=== PATIENT | female | born 1940 | race Caucasian/White ===

== ENCOUNTER 2017-03-23 17:54 | Emergency (ER) | payer OTHER ==
--- NOTE | 2017-03-23 18:02 | PDOC ---
Rapid Medical Evaluation Time Seen by Provider: 03/23/17 17:55 Medical Evaluation: Allergies Allergy/AdvReac Type Severity Reaction Status Date / Time valsartan [From Diovan] Allergy Verified 02/21/16 11:51 03/23/17 18:01 I have performed a brief in-person evaluation of this patient. The patient presents with a chief complaint of: CP and back pain x 4-5 days, worse w/ movement. H/o DM, HTN Pertinent physical exam findings:BP 199/96, exam otherwise unremarkable I have ordered the following: ekg/cxr/labs The patient will proceed to the ED for further evaluation.
[2017-03-23 18:05] VITALS: BP 199/96; PULSE 77; TEMP 97.5; BMI 24.9
[2017-03-23 18:26] LABS: BASO % 0.7 % (0-2.0); EOS % 0.6 % (0-4.5); HEMATOCRIT 37.3 % (32.4-45.2); HEMOGLOBIN 12.2 GM/dL (10.7-15.3); LYMPH % 19.4 % (8-40); MCH 26.8 pg (25.7-33.7); MCHC 32.8 g/dl (32.0-36.0); MEAN CELL VOLUME 81.8 fl (80-96); MEAN PLT VOLUME 8.3 fl (7.5-11.1); MONO % 6.9 % (3.8-10.2); NEUT % 72.4 % (42.8-82.8); PLATELET COUNT 467 K/MM3 (134-434); RBC 4.56 M/mm3 (3.60-5.2); RDW 14.1 % (11.6-15.6)
[2017-03-23 19:18] LABS: ALBUMIN 3.5 g/dl (3.4-5.0); ANION GAP 7 (8-16); BILIRUBIN,TOTAL 0.8 mg/dL (0.2-1.0); BLOOD UREA NITROGEN 12 mg/dL (7-18); CALCIUM 9.4 mg/dL (8.5-10.1); CHLORIDE 97 mmol/L (98-107); CO2 30 mmol/L (21-32); CREATININE 1.2 mg/dL (0.55-1.02); POTASSIUM 4.2 mmol/L (3.5-5.1); SGOT/AST 13 U/L (15-37); SGPT/ALT 17 U/L (12-78); SODIUM 134 mmol/L (136-145); TOT PROT 7.3 g/dl (6.4-8.2)
[2017-03-23 19:20] LABS: ALK PHOS 124 U/L (45-117)
[2017-03-23 19:24] LABS: GLUCOSE,RANDOM 349 mg/dL (74-106)
--- NOTE | 2017-03-23 20:10 | PDOC ---
History of Present Illness - General History Source: Patient Exam Limitations: No Limitations - History of Present Illness Initial Comments: 03/23/17 20:17 This is a 77-year-old female with a history of hypertension, hyperlipidemia, and insulin-dependent diabetes who presents to the emergency department for midsternal chest pain radiating to the back between her scapulae for 4-5 days with associated mild shortness of breath. The patient states her chest pain and dyspnea is exacerbated with heavy lifting and some movements, howoever, can be alleviated with rest. The patient denies any chest pain at thsi time. She presents from the office of Dr. Espana for evaluation. Allergies: Valsartan PCP - Dr. Espana <Theodora Valentin - Last Filed: 03/23/17 22:55> - General History Source: Patient <RajiJuan Luis velasquez - Last Filed: 03/24/17 20:02> - General Chief Complaint: Shortness of Breath Stated Complaint: PCP SENT/CHEST PAIN Time Seen by Provider: 03/23/17 17:55 Past History <Theodora Valentin - Last Filed: 03/23/17 22:55> - Past Medical History Anemia: No Asthma: No Cancer: No Cardiac Disorders: No CVA: No COPD: No CHF: No DVT: No Dementia: No Diabetes: Yes (IDDM) GI Disorders: Yes (DIVERTICULOSIS,COLONIC POLYPS,HEMORRHOIDS,) Disorders: Yes (UTERINE POLYPS,URINARY INCONTINENCE) HTN: Yes Hypercholesterolemia: No Liver Disease: No Seizures: No Thyroid Disease: No - Surgical History Abdominal Surgery: No Appendectomy: Yes Cardiac Surgery: No Cholecystectomy: Yes Lung Surgery: No Neurologic Surgery: No Orthopedic Surgery: No - Suicide/Smoking/Psychosocial Hx Smoking Status: No Smoking History: Never smoked Number of Cigarettes Smoked Daily: 0 Information on smoking cessation initiated: No Hx Alcohol Use: No Drug/Substance Use Hx: No Substance Use Type: None Hx Substance Use Treatment: No <Juan Luis Busch - Last Filed: 03/24/17 20:02> - Past Medical History Allergies/Adverse Reactions: Allergies Allergy/AdvReac Type Severity Reaction Status Date / Time valsartan [From Diovan] Allergy Verified 03/23/17 18:02 Home Medications: Ambulatory Orders Nebivolol [Bystolic -] 5 mg PO HS 08/24/11 Insulin Glargine,Hum.rec.anlog [Lantus] 24 units SQ HS #15 08/27/15 Solifenacin Succinate [Vesicare] 1 tab PO DAILY #30 08/27/15 Aspirin [ASA -] 81 mg PO DAILY 09/09/15 Atorvastatin Ca [Lipitor] 40 mg PO HS 02/21/16 Cephalexin [Keflex] 500 mg PO Q6H #20 capsule 02/21/16 Cholecalciferol (Vitamin D3) [Vitamin D3] 1,000 unit PO DAILY 02/21/16 Furosemide [Lasix -] 20 mg PO DAILY #30 tablet 02/21/16 Ginkgo Biloba 0 mg PO DAILY 02/21/16 Hydralazine HCl [Apresoline -] 25 mg PO BID 02/21/16 Loratadine [Claritin -] 10 mg PO DAILY 02/21/16 Multivitamins [Tab-A-Vit -] 1 tab PO DAILY 02/21/16 Review of Systems - Review of Systems Able to Perform ROS?: Yes Comments:: 03/23/17 20:19 CONSTITUTIONAL: Absent: fever, chills, diaphoresis, generalized weakness, malaise, loss of appetite HEENT: Absent: rhinorrhea, nasal congestion, throat pain, throat swelling, difficulty swallowing, mouth swelling, ear pain, eye pain, visual Changes CARDIOVASCULAR: (+) midsternal chest pain, Absent: syncope, palpitations, irregular heart rate, lightheadedness, peripheral edema RESPIRATORY: (+) mild shortness of breath and dyspnea with exertion, Absent: cough, orthopnea, wheezing, stridor, hemoptysis GASTROINTESTINAL: Absent: abdominal pain, abdominal distension, nausea, vomiting, diarrhea, constipation, melena, hematochezia GENITOURINARY: Absent: dysuria, frequency, urgency, hesitancy, hematuria, flank pain, genital pain MUSCULOSKELETAL: Absent: myalgia, arthralgia, joint swelling SKIN: Absent: rash, itching, pallor HEMATOLOGIC/IMMUNOLOGIC: Absent: easy bleeding, easy bruising, lymphadenopathy, frequent infections ENDOCRINE: Absent: unexplained weight gain, unexplained weight loss, heat intolerance, cold intolerance NEUROLOGIC: Absent: headache, focal weakness or paresthesias, dizziness, unsteady gait, seizure, mental status changes, bladder or bowel incontinence PSYCHIATRIC: Absent: anxiety, depression, suicidal or homicidal ideation, hallucinations. <ShantiRashmi toddanda - Last Filed: 03/23/17 22:55> *Physical Exam - Vital Signs Last Vital Signs Temp Pulse Resp BP Pulse Ox 97.5 F L 77 18 199/96 100 03/23/17 18:02 03/23/17 18:02 03/23/17 18:02 03/23/17 18:02 03/23/17 18:02 - Physical Exam Comments: 03/23/17 20:19 GENERAL: Well developed, well nourished. Awake and alert. No acute distress. HEENT: Normocephalic, atraumatic. PERRLA, EOMI. No conjunctival pallor. Sclera are non- icteric. Moist mucous membranes. Oropharynx is clear. NECK: Supple. Full ROM. No JVD. Carotid pulses 2+ and symmetric, without bruits. No thyromegaly. No lymphadenopathy. CARDIOVASCULAR: Regular rate and rhythm. No murmurs, rubs, or gallops. Distal pulses are 2+ and symmetric. PULMONARY: No evidence of respiratory distress. Lungs clear to auscultation bilaterally. No wheezing, rales or rhonchi. ABDOMINAL: Soft. Non-tender. Non-distended. No rebound or guarding. No organomegaly. Normoactive bowel sounds. MUSCULOSKELETAL Normal range of motion at all joints. No bony deformities or tenderness. No CVA tenderness. EXTREMITIES: No cyanosis. No clubbing. No edema. No calf tenderness. SKIN: Warm and dry. Normal capillary refill. No rashes. No jaundice. NEUROLOGICAL: Alert, awake, appropriate. Cranial nerves 2-12 intact. Normoreflexic in the upper and lower extremities. Normal speech. Toes are down-going bilaterally. Gait is normal without ataxia. PSYCHIATRIC: Cooperative. Good eye contact. Appropriate mood and affect. <ShantiTheodora todd - Last Filed: 03/23/17 22:55> - Vital Signs Last Vital Signs Temp Pulse Resp BP Pulse Ox 97.5 F L 77 18 199/96 100 03/23/17 18:02 03/23/17 18:02 03/23/17 18:02 03/23/17 18:02 03/23/17 18:02 <Juan Luis Busch - Last Filed: 03/24/17 20:02> Heart Score/ECG Review - ECG Intrepretation Comment:: 03/23/17 20:30 EKG was read by Dr. Busch at 20:17 Impression: Sinus rhythm with premature atrial complexes. Left axis deviation. Left ventricular hypertrophy with repolarization abnormality. Vent Rate: 68 bpm WI Interval: 172 ms QTc: 427 ms EKG unchanged when compared to an EKG performed earlier today, 03/23/17 at 3: 11PM. 03/23/17 22:55 2nd EKG was performed and read by Dr. Busch at 22:50 Impression: Normal sinus rhythms with sinus arrhythmia. Incomplete right BBB. Left anterior fascicular block. Vent Rate: 75 bpm WI Interval: 182 ms QTc: 437 ms <Theodora Valentin - Last Filed: 03/23/17 22:55> ED Treatment Course - LABORATORY CBC & Chemistry Diagram: 03/23/17 18:20 03/23/17 18:20 - ADDITIONAL ORDERS Additional order review: Laboratory Results 03/23/17 18:20 Sodium 134 L Potassium 4.2 Chloride 97 L Carbon Dioxide 30 Anion Gap 7 L BUN 12 Creatinine 1.2 H D Creat Clearance w eGFR 43.80 Random Glucose 349 H* D Calcium 9.4 Total Bilirubin 0.8 AST 13 L D ALT 17 D Alkaline Phosphatase 124 H Creatine Kinase 70 Troponin I < 0.02 Total Protein 7.3 Albumin 3.5 03/23/17 18:20 RBC 4.56 MCV 81.8 MCHC 32.8 RDW 14.1 MPV 8.3 Neutrophils % 72.4 Lymphocytes % 19.4 Monocytes % 6.9 Eosinophils % 0.6 Basophils % 0.7 <Theodora Valentin - Last Filed: 03/23/17 22:55> - LABORATORY CBC & Chemistry Diagram: 03/23/17 18:20 03/23/17 18:20 - ADDITIONAL ORDERS Additional order review: Laboratory Results 03/23/17 18:20 Sodium 134 L Potassium 4.2 Chloride 97 L Carbon Dioxide 30 Anion Gap 7 L BUN 12 Creatinine 1.2 H D Creat Clearance w eGFR 43.80 Random Glucose 349 H* D Calcium 9.4 Total Bilirubin 0.8 AST 13 L D ALT 17 D Alkaline Phosphatase 124 H Creatine Kinase 70 Troponin I < 0.02 Total Protein 7.3 Albumin 3.5 03/23/17 18:20 RBC 4.56 MCV 81.8 MCHC 32.8 RDW 14.1 MPV 8.3 Neutrophils % 72.4 Lymphocytes % 19.4 Monocytes % 6.9 Eosinophils % 0.6 Basophils % 0.7 <Juan Luis Busch - Last Filed: 03/24/17 20:02> Medical Decision Making - Medical Decision Making 03/23/17 22:10 Pt htn, IDDM presents with chest pain with radiation to her back. Pt pending second CE to determine disposition. Pt currently CP free. 03/24/17 20:02 Dr. Busch: The scribe's documentation has been prepared under my direction and personally reviewed by me in its entirery. I confirm that the note above accurately reflects all work, treatment, procedures, and medical decision making performed by me. <Juan Luis Busch - Last Filed: 03/24/17 20:02> *DC/Admit/Observation/Transfer - Attestations Scribe Attestion: 03/23/17 20:20 Documentation prepared by Theodora Valentin, acting as medical psychotherapist for Juan Luis Busch DO <Theodora Valentin - Last Filed: 03/23/17 22:55> - Discharge Dispostion Admit: No <Juan Luis Busch - Last Filed: 03/24/17 20:02> Diagnosis at time of Disposition: Chest pain Qualifiers: Chest pain type: unspecified Qualified Code(s): R07.9 - Chest pain, unspecified - Discharge Dispostion Disposition: HOME Condition at time of disposition: Stable - Referrals Referrals: Ro Espana MD [Primary Care Provider] - - Patient Instructions Printed Discharge Instructions: DI for Chest Pain Additional Instructions: Please follow up with Dr. Espana as soon as possible. REturn if any problems, Print Language: AMHARIC - Post Discharge Activity
[2017-03-23 20:45] LABS: URINE APPEARANCE CLEAR; URINE BILIRUBIN NEGATIVE (NEGATIVE); URINE BLOOD NEGATIVE (NEGATIVE); URINE COLOR YELLOW; URINE GLUCOSE (UA) 3+ (NEGATIVE); URINE KETONE NEGATIVE (NEGATIVE); URINE LEUK ESTERASE NEGATIVE (NEGATIVE); URINE NITRITE NEGATIVE (NEGATIVE); URINE UROBILINOGEN NEGATIVE mg/dL (0.2-1.0)
[2017-03-23 20:46] LABS: URINE PROTEIN 2+ (NEGATIVE)
[2017-03-23 20:53] LABS: EPI CELLS RARE /HPF (FEW); URINE HYALINE CAST 50 /lpf; URINE MUCUS RARE
--- NOTE | 2017-03-24 09:07 | EKG ---
Test Reason : Blood Pressure : / mmHG Vent. Rate : 065 BPM Atrial Rate : 065 BPM P-R Int : 180 ms QRS Dur : 114 ms QT Int : 392 ms P-R-T Axes : 067 -51 030 degrees QTc Int : 407 ms NORMAL SINUS RHYTHM WITH SINUS ARRHYTHMIA INCOMPLETE RIGHT BUNDLE BRANCH BLOCK Blocked PAC's LEFT ANTERIOR FASCICULAR BLOCK MINIMAL VOLTAGE CRITERIA FOR LVH, MAY BE NORMAL VARIANT SEPTAL INFARCT , AGE UNDETERMINED ABNORMAL ECG WHEN COMPARED WITH ECG OF 23-MAR-2017 20:17, PREMATURE ATRIAL COMPLEXES ARE NO LONGER PRESENT SEPTAL INFARCT IS NOW PRESENT NONSPECIFIC T WAVE ABNORMALITY NOW EVIDENT IN ANTERIOR LEADS Confirmed by MD Marlon, Kolton ([id number]) on 03/24/2017 9:07:48 AM Referred By: Confirmed By:Kolton Mason MD
--- NOTE | 2017-03-24 09:17 | EKG ---
Test Reason : Blood Pressure : / mmHG Vent. Rate : 079 BPM Atrial Rate : 079 BPM P-R Int : 166 ms QRS Dur : 118 ms QT Int : 366 ms P-R-T Axes : 024 -44 058 degrees QTc Int : 419 ms SINUS RHYTHM WITH PREMATURE ATRIAL COMPLEXES LEFT AXIS DEVIATION LEFT VENTRICULAR HYPERTROPHY WITH QRS WIDENING AND REPOLARIZATION ABNORMALITY ABNORMAL ECG WHEN COMPARED WITH ECG OF 21-FEB-2016 13:09, PREMATURE ATRIAL COMPLEXES ARE NOW PRESENT Confirmed by MD Marlon, Kolton ([id number]) on 03/24/2017 9:17:22 AM Referred By: Confirmed By:Kolton Mason MD
--- NOTE | 2017-03-30 15:18 | EKG ---
Test Reason : Blood Pressure : / mmHG Vent. Rate : 068 BPM Atrial Rate : 068 BPM P-R Int : 172 ms QRS Dur : 102 ms QT Int : 402 ms P-R-T Axes : 028 -44 035 degrees QTc Int : 427 ms POOR DATA QUALITY, INTERPRETATION MAY BE ADVERSELY AFFECTED SINUS RHYTHM WITH PREMATURE ATRIAL COMPLEXES LEFT AXIS DEVIATION LEFT VENTRICULAR HYPERTROPHY WITH REPOLARIZATION ABNORMALITY ABNORMAL ECG WHEN COMPARED WITH ECG OF 23-MAR-2017 17:59, NO SIGNIFICANT CHANGE WAS FOUND Confirmed by Mario Pena MD ([id number]) on 03/30/2017 3:18:01 PM Referred By: Confirmed By:Mario Pena MD
== END 2017-03-23 23:21 | disposition home or self-care (01) ==
LOC: JER 17:54
DX: R07.89 Other chest pain (principal); I10 Essential (primary) hypertension; M10.9 Gout, unspecified; Z79.4 Long term (current) use of insulin; E78.5 Hyperlipidemia, unspecified
CPT/HCPCS: 36415; 71045-TC; 80053; 81003; 81015; 82550; 84484; 85025; 93005; 93010; 99283-25

== ENCOUNTER 2017-05-22 15:54 | Emergency (ER) | payer OTHER ==
--- NOTE | 2017-05-22 16:19 | PDOC ---
History of Present Illness - General History Source: Patient, Family (daughter ) Exam Limitations: No Limitations - History of Present Illness Initial Comments: 05/22/17 17:30 The patient is a 77 year old female, accompanied by daughter, with a significant past medical history of HTN, HLD, IDDM, anxiety, and chronic arthritis who presents to the ED with worsening weakness and dizziness for several months. Daughter notes the patient has intermittent episodes of confusion. Daughter states she took the patient out to [facility] earlier today when she had a sudden onset of sharp generalized abdominal pain and became confused. Daughter states the patient did not know where she was and was hunched over in pain. Patient also reports 2 episodes of diarrhea prior to arrival to the ED. Daughter states the patient had another episodes of confusion 3 weeks ago, where she asked why cant I turn on my TV with my cell phone. Daughter also states the patient has had a sudden weight loss of over 40 pounds over the past 8 months. Patient usually drinks a lot of fluids at baseline but daughter states she has not been drinking as much and does not eat food unless she is forced to. Patient states she has had generalized abdominal pain, nausea and lightheadedness everyday for the past couple of months. She states she gets generalized weakness and lightheadedness when she moves her head too fast. Patient also reports urinary frequency and dry mouth associated with present symptoms. As per daughter, the patients symptoms started after she was recently prescribed Metformin 8 months ago. Patient also notes she recently had an MRI performed on 04/14/17 that states there is a tear of the distal suprapihatus tendon an retraction of musclotenirtous junction. Denies chest pain or shortness of breath. Denies fever or chills. Denies any other symptoms. Social hx: Patient lives alone at home. PCP: Malorie <Veda Bhagat - Last Filed: 05/22/17 21:08> - General History Source: Patient Exam Limitations: No Limitations <Paulina Hercules - Last Filed: 05/22/17 21:33> - General Stated Complaint: LIGHTHEADED, DEHYDRATED Time Seen by Provider: 05/22/17 16:19 Past History <Veda Bhagat - Last Filed: 05/22/17 21:08> - Past Medical History Anemia: No Asthma: No Cancer: No Cardiac Disorders: No CVA: No COPD: No CHF: No DVT: No Dementia: No Diabetes: Yes (IDDM) GI Disorders: Yes (DIVERTICULOSIS,COLONIC POLYPS,HEMORRHOIDS,) Disorders: Yes (UTERINE POLYPS,URINARY INCONTINENCE) HTN: Yes Hypercholesterolemia: No Liver Disease: No Seizures: No Thyroid Disease: No - Surgical History Abdominal Surgery: No Appendectomy: Yes Cardiac Surgery: No Cholecystectomy: Yes Lung Surgery: No Neurologic Surgery: No Orthopedic Surgery: No - Suicide/Smoking/Psychosocial Hx Smoking Status: No Smoking History: Never smoked Number of Cigarettes Smoked Daily: 0 Hx Alcohol Use: No Drug/Substance Use Hx: No Substance Use Type: None Hx Substance Use Treatment: No <Paulina Hercules - Last Filed: 05/22/17 21:33> - Past Medical History Allergies/Adverse Reactions: Allergies Allergy/AdvReac Type Severity Reaction Status Date / Time valsartan [From Diovan] Allergy Verified 05/22/17 16:16 Home Medications: Ambulatory Orders Nebivolol [Bystolic -] 5 mg PO HS 08/24/11 Insulin Glargine,Hum.rec.anlog [Lantus] 24 units SQ HS #15 08/27/15 Solifenacin Succinate [Vesicare] 1 tab PO DAILY #30 08/27/15 Aspirin [ASA -] 81 mg PO DAILY 09/09/15 Atorvastatin Ca [Lipitor] 40 mg PO HS 02/21/16 Cholecalciferol (Vitamin D3) [Vitamin D3] 1,000 unit PO DAILY 02/21/16 Furosemide [Lasix -] 20 mg PO DAILY #30 tablet 02/21/16 Ginkgo Biloba 0 mg PO DAILY 02/21/16 Loratadine [Claritin -] 10 mg PO DAILY 02/21/16 Multivitamins [Tab-A-Vit -] 1 tab PO DAILY 02/21/16 hydrALAZINE HCL [Apresoline -] 25 mg PO BID 02/21/16 Amoxicillin/Potassium Clav [Augmentin 875-125 Tablet] 1 each PO BID #14 tablet 05/22/17 metroNIDAZOLE [Flagyl -] 500 mg PO TID #21 tablet 05/22/17 Review of Systems - Review of Systems Able to Perform ROS?: Yes Comments:: 05/22/17 17:30 CONSTITUTIONAL: + generalized weakness, loss of appetite Absent: fever, chills, diaphoresis, malaise HEENT: + dry mouth Absent: rhinorrhea, nasal congestion, throat pain, throat swelling, difficulty swallowing, mouth swelling, ear pain, eye pain, visual Changes CARDIOVASCULAR: Absent: chest pain, syncope, palpitations, irregular heart rate, lightheadedness , peripheral edema RESPIRATORY: Absent: cough, shortness of breath, dyspnea with exertion, orthopnea, wheezing, stridor, hemoptysis GASTROINTESTINAL: + abdominal pain, nausea, diarrhea Absent: abdominal distension, vomiting, constipation, melena, hematochezia GENITOURINARY: + frequence Absent: dysuria, urgency, hesitancy, hematuria, flank pain, genital pain MUSCULOSKELETAL: Absent: myalgia, arthralgia, joint swelling SKIN: Absent: rash, itching, pallor HEMATOLOGIC/IMMUNOLOGIC: Absent: easy bleeding, easy bruising, lymphadenopathy, frequent infections ENDOCRINE: + unexplained weight loss Absent: unexplained weight gain, heat intolerance, cold intolerance NEUROLOGIC: + lightheadedness, dizziness, mental status changes (confusion) Absent: headache, focal weakness or paresthesias, unsteady gait, seizure, bladder or bowel incontinence PSYCHIATRIC: Absent: anxiety, depression, suicidal or homicidal ideation, hallucinations. All Other Systems: Reviewed and Negative <Veda Bhagat - Last Filed: 05/22/17 21:08> *Physical Exam - Vital Signs Last Vital Signs Temp Pulse Resp BP Pulse Ox 97.7 F 87 19 156/67 97 05/22/17 16:16 05/22/17 16:16 05/22/17 16:16 05/22/17 16:16 05/22/17 16:16 - Physical Exam Comments: 05/22/17 17:31 GENERAL: Well developed, well nourished. Awake and alert. No acute distress. HEENT:+ dry mucous membranes. Normocephalic, atraumatic. PERRLA, EOMI. No conjunctival pallor. Sclera are non- icteric. Oropharynx is clear. NECK: Supple. Full ROM. No JVD. Carotid pulses 2+ and symmetric, without bruits. No thyromegaly. NCo lymphadenopathy. CARDIOVASCULAR: Regular rate and rhythm. No murmurs, rubs, or gallops. Distal pulses are 2+ and symmetric. PULMONARY: No evidence of respiratory distress. Lungs clear to auscultation bilaterally. No wheezing, rales or rhonchi. ABDOMINAL: Soft. Non-tender. Non-distended. No rebound or guarding. No organomegaly. Normoactive bowel sounds. MUSCULOSKELETAL Normal range of motion at all joints. No bony deformities or tenderness. No CVA tenderness. EXTREMITIES: No cyanosis. No clubbing. No edema. No calf tenderness. SKIN: Warm and dry. Normal capillary refill. No rashes. No jaundice. NEUROLOGICAL: Alert, awake, appropriate. Cranial nerves 2-12 intact. No deficits to light touch and temperature in face, upper extremities and lower extremities. No motor deficits in the in face, upper extremities and lower extremities. Normoreflexic in the upper and lower extremities. Normal speech. Toes are down- going bilaterally. Gait is normal without ataxia. PSYCHIATRIC: Cooperative. Good eye contact. Appropriate mood and affect. <Veda Bhagat - Last Filed: 05/22/17 21:08> ED Treatment Course - LABORATORY CBC & Chemistry Diagram: 05/22/17 17:20 05/22/17 17:20 - ADDITIONAL ORDERS Additional order review: 05/22/17 17:20 RBC 4.69 MCV 80.8 MCHC 34.1 RDW 14.9 MPV 9.1 Neutrophils % 80.5 Lymphocytes % 11.5 D Monocytes % 6.9 Eosinophils % 0.4 Basophils % 0.7 - RADIOLOGY Radiograph Interpretation: 05/22/17 20:24 EXAM: CT head without contrast FINDINGS: There is cerebral atrophy. Chronic microvascular ischemic changes are noted. Chronic lacunar infarctions. No acute intracranial hemorrhage or acute infarction. The visualized aspect of the paranasal sinuses and mastoid air cells are unremarkable. No acute fracture. Mild gas in the cavernous sinuses, without specific etiology, though can be seen with inadvertent air in an IV catheter. Reported by: Imaging manager simulation EXAM: CT abdomen and pelvis with contrast Findings: Mild atelectasis and scarring in lung bases. No pleural effusions. Small hiatal hernia. Small low-attenuation hepatic lesions, probably cysts or hemangiomas. Cholecystectomy. Pancreas, adrenal glands, and spleen are unremarkable. No renal or urinary calculi. No AAA. Moderate colonic diverticulosis without inflammatory changes to suggest diverticulitis. Appearance of mild mucosal thickening in the ascending colon extending to the proximal transverse colon may be due to underdistention. Cannot exclude mild colitis. Appendix not seen with certainty. No evidence for small bowel obstruction, free fluid, or free air. Abdominal wall wound healed by secondary intention Reported by: Imaging manager simulation <Veda Bhagat - Last Filed: 05/22/17 21:08> - LABORATORY CBC & Chemistry Diagram: 05/22/17 17:20 05/22/17 17:20 <Paulina Hercules - Last Filed: 05/22/17 21:33> Medical Decision Making - Medical Decision Making 05/22/17 17:49 Ms Cole is a 77 yo F with a history of IDDM, HTN, HLD, arthritis, anxiety She presents to the ER with her daughter due to unclear complaints of weakness, confusion Pt was also noted today to have abdominal pain and diarrhea Pt states she is lightheaded but it worsens when she turns her head No headache No focal weakness or numbness No fevers or chills No chest pain Pt examination significant for: Alert, answers questions appropriately Very dry mucous membranes RRR CTA No abd tenderness at this time DD is broad and includes: (lightheadedness) CVA/TIA, ACS, Arrhythmia, dehydration, Renal insufficiency, UA , Hyperglycemia (abd pain) colitis, diverticulitis, Will do: Labs EKG Head CT Abd CT IV fluids EKG: SR rate of 81 bpm, Left axis deviation, LVH, no ST elevations or depressions, t wave inversion I aVL 05/22/17 19:19 Laboratory Tests 03/23/17 05/22/17 05/22/17 18:20 17:20 17:20 WBC 9.6 Hgb 12.9 Hct 37.9 Plt Count 367 D Neutrophils % 80.5 Lymphocytes % 11.5 D Sodium 134 L Potassium 3.8 Chloride 97 L Carbon Dioxide 27 BUN 12 14 Creatinine 1.2 H D 1.2 H Random Glucose 349 H* D 560 H* Lactic Acid Total Bilirubin 0.8 1.2 H D Troponin I 0.02 B-Natriuretic Peptide 1156.26 H 05/22/17 17:20 WBC Hgb Hct Plt Count Neutrophils % Lymphocytes % Sodium Potassium Chloride Carbon Dioxide BUN Creatinine Random Glucose Lactic Acid 2.5 H* Total Bilirubin Troponin I B-Natriuretic Peptide CT pending 05/22/17 21:22 CT: No renal or urinary calculi. No AAA. Moderate colonic diverticulosis without inflammatory changes to suggest diverticulitis. Appearance of mild mucosal thickening in the ascending colon extending to the proximal transverse colon may be due to underdistention. Cannot exclude mild colitis. Appendix not seen with certainty. No evidence for small bowel obstruction, free fluid, or free air. Abdominal wall wound healed by secondary intention. Pt daughter does not want to keep her on observation The patient is doing much better Pt has been ambulatory in the ER with no assistance No more abdominal pain or diarrhea Will discharge to home Pt to follow up with PMD Pt to hold Metformin x 2 days Pt to stay hydrated Return to the ER for any other concerns or complaints Clinical impression: colitis, initial presentation Weakness, initial presentation <Paulina Hercules - Last Filed: 05/22/17 21:33> *DC/Admit/Observation/Transfer - Attestations Scribe Attestion: 05/22/17 17:31 Documentation prepared by Veda Bhagat, acting as medical device sales consultant for Paulina Hercules MD <Veda Bhagat - Last Filed: 05/22/17 21:08> - Discharge Dispostion Admit: No <Paulina Hercules - Last Filed: 05/22/17 21:33> Diagnosis at time of Disposition: Colitis, Weakness Diarrhea Qualifiers: Diarrhea type: unspecified type Qualified Code(s): R19.7 - Diarrhea, unspecified - Discharge Dispostion Disposition: HOME Condition at time of disposition: Stable - Referrals Referrals: Ro Espana MD [Primary Care Provider] - - Patient Instructions Printed Discharge Instructions: DI for Colitis, Diarrhea, DI for Muscle Weakness Additional Instructions: Thank you for coming in to the ER today Ms. Cole Please be sure to follow up with your primary care physician within 1 week Please take your medications as prescribed, EXCEPT your Metformin. You will stop taking your Metformin for 48 hours (following your CT scan) Please stay hydrated as much as possible Please take your other medication for diabetes Please monitor yourself for fevers, chills, increased pain, any other concerns or complaints
[2017-05-22 16:21] VITALS: BMI 23.8
[2017-05-22] MEDS ORDERED: SODIUM CHLORIDE 1,000 ML IV STA (16:46)
[2017-05-22 17:28] LABS: BASO % 0.7 % (0-2.0); EOS % 0.4 % (0-4.5); HEMATOCRIT 37.9 % (32.4-45.2); HEMOGLOBIN 12.9 GM/dL (10.7-15.3); LYMPH % 11.5 % (8-40); MCH 27.5 pg (25.7-33.7); MCHC 34.1 g/dl (32.0-36.0); MEAN CELL VOLUME 80.8 fl (80-96); MEAN PLT VOLUME 9.1 fl (7.5-11.1); MONO % 6.9 % (3.8-10.2); NEUT % 80.5 % (42.8-82.8); PLATELET COUNT 367 K/MM3 (134-434); RBC 4.69 M/mm3 (3.60-5.2); RDW 14.9 % (11.6-15.6); WHITE BLOOD COUNT 9.6 K/mm3 (4.0-10.0)
[2017-05-22 17:54] LABS: ALBUMIN 3.4 g/dl (3.4-5.0); AMYLASE 14 U/L (25-115); ANION GAP 10 (8-16); BILIRUBIN,TOTAL 1.2 mg/dL (0.2-1.0); BLOOD UREA NITROGEN 14 mg/dL (7-18); CALCIUM 8.6 mg/dL (8.5-10.1); CHLORIDE 97 mmol/L (98-107); CO2 27 mmol/L (21-32); CREATININE 1.2 mg/dL (0.55-1.02); LIPASE 60 U/L (73-393); POTASSIUM 3.8 mmol/L (3.5-5.1); SGOT/AST 8 U/L (15-37); SGPT/ALT 18 U/L (12-78); SODIUM 134 mmol/L (136-145)
[2017-05-22 17:58] LABS: ALK PHOS 87 U/L (45-117); N-TERMINAL BNP 1156.26 pg/ml (5-450); TOT PROT 6.5 g/dl (6.4-8.2)
[2017-05-22 17:59] LABS: GLUCOSE,RANDOM 560 mg/dL (74-106)
[2017-05-22] MEDS ORDERED: INSULIN REGULAR HUMAN 100 UNITS/ML *VIAL IVPUSH ONE (17:59)
[2017-05-22] MEDS ORDERED: INSULIN REGULAR HUMAN 100 UNITS/ML *VIAL ONE (18:31)
[2017-05-22] MEDS ORDERED: HEMOQUE TEST 1 EACH EACH ONE (20:06)
[2017-05-22] MEDS ORDERED: metroNIDAZOLE 250 MG TABLET PO ONE (21:31)
[2017-05-22] MEDS ORDERED: AMOX TR/POT CLAV 875MG/125MG TABLETS (FP) PO ONE (21:31)
[2017-05-22 21:32] VITALS: BP 189/102; PULSE 75; TEMP 97.6
[2017-05-22] MEDS ORDERED: metroNIDAZOLE 250 MG TABLET ONE (21:34)
[2017-05-22] MEDS ORDERED: AMOX TR/POT CLAV 875MG/125MG TABLETS (FP) ONE (21:34)
--- NOTE | 2017-05-23 14:24 | EKG ---
Test Reason : Blood Pressure : / mmHG Vent. Rate : 081 BPM Atrial Rate : 081 BPM P-R Int : 150 ms QRS Dur : 116 ms QT Int : 374 ms P-R-T Axes : 035 -51 077 degrees QTc Int : 434 ms NORMAL SINUS RHYTHM LEFT ANTERIOR FASCICULAR BLOCK LEFT VENTRICULAR HYPERTROPHY WITH QRS WIDENING AND REPOLARIZATION ABNORMALITY ABNORMAL ECG Confirmed by MD SANTO GREGORY ([id number]) on 05/23/2017 2:24:24 PM Referred By: Confirmed By:DERRELL SANTO MD
== END 2017-05-22 21:43 | disposition home or self-care (01) ==
LOC: JER 15:54
PROC: 3E013VG Introduction of Insulin into Subcutaneous Tissue, Percutaneous Approach (ICD-10-PCS; principal; 2017-05-22)
PROC: 3E0337Z Introduction of Electrolytic and Water Balance Substance into Peripheral Vein, Percutaneous Approach (ICD-10-PCS; 2017-05-22)
DX: K52.9 Noninfective gastroenteritis and colitis, unspecified (principal); R19.7 Diarrhea, unspecified; L53.1 Erythema annulare centrifugum; E11.9 Type 2 diabetes mellitus without complications; I10 Essential (primary) hypertension; E78.5 Hyperlipidemia, unspecified; F41.9 Anxiety disorder, unspecified
CPT/HCPCS: 36415; 70450-TC; 71045-TC-FY; 74177-TC; 80053; 82150; 82550; 82962; 83605; 83690; 83880; 84484; 85025; 93005; 93010; 99283-25

== ENCOUNTER 2017-06-07 09:09 | Observation (INO) | payer OTHER ==
--- NOTE | 2017-06-07 09:58 | PDOC ---
History of Present Illness - General History Source: Patient - History of Present Illness Timing/Duration: other Associated Symptoms: denies: chest pain, fever/chills, headaches, nausea/ vomiting, shortness of breath, syncope <Thomas Paris - Last Filed: 06/07/17 12:09> <Dionicio Kim - Last Filed: 06/07/17 17:19> - General Chief Complaint: Pain Stated Complaint: flank PAIN, high bp, dizzy Time Seen by Provider: 06/07/17 09:33 Past History - Past Medical History Anemia: No Asthma: No Cancer: No Cardiac Disorders: No CVA: No COPD: No CHF: No DVT: No Dementia: No Diabetes: Yes (IDDM) GI Disorders: Yes (DIVERTICULOSIS,COLONIC POLYPS,HEMORRHOIDS,) Disorders: Yes (UTERINE POLYPS,URINARY INCONTINENCE) HTN: Yes Hypercholesterolemia: No Liver Disease: No Seizures: No Thyroid Disease: No - Surgical History Abdominal Surgery: No Appendectomy: Yes Cardiac Surgery: No Cholecystectomy: Yes Lung Surgery: No Neurologic Surgery: No Orthopedic Surgery: No - Suicide/Smoking/Psychosocial Hx Smoking Status: No Smoking History: Never smoked Number of Cigarettes Smoked Daily: 0 Information on smoking cessation initiated: No Hx Alcohol Use: No Drug/Substance Use Hx: No Substance Use Type: None Hx Substance Use Treatment: No <Thomas Paris - Last Filed: 06/07/17 12:09> <Dionicio Kim - Last Filed: 06/07/17 17:19> - Past Medical History Allergies/Adverse Reactions: Allergies Allergy/AdvReac Type Severity Reaction Status Date / Time valsartan [From Diovan] Allergy Verified 06/07/17 09:14 Home Medications: Ambulatory Orders Aspirin [ASA -] 81 mg PO DAILY 09/09/15 Dapagliflozin Propanediol [Farxiga] 5 mg PO DAILY 06/07/17 Olmesartan/Hydrochlorothiazide [Benicar Hct 40-12.5MG Tab] 1 tab PO DAILY Review of Systems - Review of Systems Constitutional: No: Chills, Fever HEENTM: No: Blurred Vision, Difficulty Swallowing Respiratory: No: Shortness of Breath Cardiac (ROS): No: Chest Pain ABD/GI: No: Blood Streaked Bowels, Constipated, Diarrhea, Nausea, Rectal Bleeding, Vomiting, Tarry Stools : Yes: Frequency, Incontinence. No: Dysuria, Hematuria Neurological: Yes: Dizziness. No: Headache, Numbness, Tingling, Weakness <Thomas Paris - Last Filed: 06/07/17 12:09> *Physical Exam - Vital Signs Last Vital Signs Temp Pulse Resp BP Pulse Ox 97.7 F 81 18 201/85 100 06/07/17 09:14 06/07/17 09:14 06/07/17 09:14 06/07/17 09:14 06/07/17 09:14 - Physical Exam General Appearance: Yes: Appropriately Dressed. No: Apparent Distress HEENT: positive: Normal Voice Neck: positive: Supple Respiratory/Chest: positive: Lungs Clear, Normal Breath Sounds. negative: Respiratory Distress Cardiovascular: positive: Regular Rate, S1, S2 Gastrointestinal/Abdominal: positive: Soft. negative: Tender Musculoskeletal: negative: CVA Tenderness Integumentary: positive: Dry, Warm Neurologic: positive: Fully Oriented, Alert, Normal Mood/Affect, Motor Strength 5/5 (no nystagmus, nl finger to nose) <Thomas Paris - Last Filed: 06/07/17 12:09> - Vital Signs Last Vital Signs Temp Pulse Resp BP Pulse Ox 97.7 F 80 16 163/81 100 06/07/17 17:00 06/07/17 17:00 06/07/17 17:00 06/07/17 17:00 06/07/17 17:00 <Dionicio Kim - Last Filed: 06/07/17 17:19> ED Treatment Course - LABORATORY CBC & Chemistry Diagram: 06/07/17 10:00 06/07/17 10:00 - RADIOLOGY Radiology Studies Ordered: Category Date Time Status CHEST X-RAY PORTABLE* [RAD] Stat Radiology 06/07/17 09:36 Taken <Thomas Paris - Last Filed: 06/07/17 12:09> - LABORATORY CBC & Chemistry Diagram: 06/07/17 10:00 06/07/17 10:00 - ADDITIONAL ORDERS Additional order review: Laboratory Results 06/07/17 06/07/17 06/07/17 11:27 10:00 09:38 Sodium 133 L Potassium 4.0 Chloride 97 L Carbon Dioxide 28 Anion Gap 8 BUN 16 Creatinine 1.2 H Creat Clearance w eGFR 43.80 POC Glucometer > 400 Random Glucose 452 H* Calcium 9.5 Total Bilirubin 0.7 D AST 14 L ALT 24 Alkaline Phosphatase 95 Creatine Kinase 75 Troponin I < 0.02 B-Natriuretic Peptide 685.18 H Cancelled Total Protein 7.6 Albumin 4.1 Lipase 65 L 06/07/17 06/07/17 11:27 10:00 RBC 4.85 MCV 81.4 MCHC 33.6 RDW 15.1 MPV 8.8 Neutrophils % 65.3 Lymphocytes % 23.9 D Monocytes % 9.0 Eosinophils % 0.7 Basophils % 1.1 POC Glucometer > 400 - Medications Given in the ED: ED Medications Discontinued Medications Generic Name Dose Route Start Last Admin Trade Name Sandovalq PRN Reason Stop Dose Admin Sodium Chloride 500 mls @ 500 mls/hr 06/07/17 10:17 06/07/17 10:21 Normal Saline - IV 06/07/17 11:16 500 mls/hr ASDIR STA Administration Insulin Human Regular 10 units 06/07/17 11:13 06/07/17 11:23 Novolin R Vial *For Ivpush Or Iv Drip Only* IVPUSH 06/07/17 11:14 10 unit ONCE ONE Administration Meclizine HCl 25 mg 06/07/17 10:17 06/07/17 10:21 Antivert - PO 06/07/17 10:18 25 mg ONCE ONE Administration <Dionicio Kim - Last Filed: 06/07/17 17:19> Medical Decision Making - Medical Decision Making 06/07/17 09:58 77-year-old female, history of hypertension, hyperlipidemia, insulin-dependent diabetic, chronic arthritis, incontinence, anxiety, here with multiple complaints including persistent dizziness x several months regardless of position but possibly worse on ambulation. States she has to hold onto carlos to walk secondary to dizziness and also finds it hard to sleep at times. No true vertigo, visual changes, headache, focal weakness, chest pain or shortness of breath. Was seen in ED for same 05/22/[address] Dr. Espana for f/u visit 05/30/2017 with unremarkable MRI. Patient states dizziness persists and decided to return to ED today. Patient also complaining of suprapubic pain that is also chronic in nature. Of note, urine culture done 05/22/2017 was read as possible contamination. CT a/p then read as ? mild colitis to ascending/proximal sigmoid, pt was dced on flagyl and augmentin which she completed. Continues to complain of her incontinence and unclear if patient on medication for same. Does not currently wear diapers. Denies true dysuria, hematuria, flank pain as noted at triage, nausea, vomiting, fever or chills. States her FS runs 100s-300s at home See exam Dizziness Chronic complaint No vertigo but possibly worse upon standing/walking No focal sxs No CP/SOB Labile BS at home Neg CTH 05/22 and neg MRI 05/30/17 Hypertensive at triage (compliant w/ benicar per pt), no focal deficits -ekg -labs -orthostatic BP -trial of meclizine -IVF -anticipate admission Incontinence Chronic ?on meds at home, no diaper use Contaminated ucx 05/22/17 Completed oct/flagyl for possible colitis on CT 05/22/17 -rpt ua/cx today -possible urology referral in near future, will d/w Dr Espana (pmd) 06/07/17 11:14 Sugar of 452 on labs, no gap. Cr of 1.2, based on chart review has been increasing since 04/08. K within normal limits. Not orthostatic. IV fluids and insulin in progress. Of note, patient recently changed from metformin to Farxiga as there was a ? of metformin causing dizziness per pt. Will admit at this time 06/07/17 12:09 Case discussed with hospitalist and patient admitted to observation <Thomas Paris - Last Filed: 06/07/17 12:09> - Medical Decision Making I reviewed the case of the mid-level practitioner and was available for consultation while in the emergency department <Dionicio Kim - Last Filed: 06/07/17 17:19> *DC/Admit/Observation/Transfer - Discharge Dispostion Admit: Yes <Thomas Paris - Last Filed: 06/07/17 12:09> <Dionicio Kim - Last Filed: 06/07/17 17:19> Diagnosis at time of Disposition: Dizziness, Hyperglycemia - Discharge Dispostion Condition at time of disposition: Fair
[2017-06-07 10:05] LABS: BASO % 1.1 % (0-2.0); EOS % 0.7 % (0-4.5); HEMATOCRIT 39.5 % (32.4-45.2); HEMOGLOBIN 13.3 GM/dL (10.7-15.3); LYMPH % 23.9 % (8-40); MCH 27.4 pg (25.7-33.7); MCHC 33.6 g/dl (32.0-36.0); MEAN CELL VOLUME 81.4 fl (80-96); MEAN PLT VOLUME 8.8 fl (7.5-11.1); NEUT % 65.3 % (42.8-82.8); PLATELET COUNT 382 K/MM3 (134-434); RBC 4.85 M/mm3 (3.60-5.2); RDW 15.1 % (11.6-15.6); WHITE BLOOD COUNT 7.9 K/mm3 (4.0-10.0)
--- NOTE | 2017-06-07 10:08 | EKG ---
Test Reason : Blood Pressure : / mmHG Vent. Rate : 079 BPM Atrial Rate : 079 BPM P-R Int : 162 ms QRS Dur : 114 ms QT Int : 378 ms P-R-T Axes : 009 -46 086 degrees QTc Int : 433 ms NORMAL SINUS RHYTHM WITH SINUS ARRHYTHMIA LEFT ANTERIOR FASCICULAR BLOCK LEFT VENTRICULAR HYPERTROPHY WITH REPOLARIZATION ABNORMALITY ABNORMAL ECG WHEN COMPARED WITH ECG OF 22-MAY-2017 16:28, NO SIGNIFICANT CHANGE WAS FOUND Confirmed by JACQUEILNE CUELLAR MD ([id number]) on 06/07/2017 10:07:52 AM Referred By: Confirmed By:JACQUELINE CUELLAR MD
[2017-06-07] MEDS ORDERED: MECLIZINE HCL 25 MG TABLET (FP) PO ONE (10:17)
[2017-06-07] MEDS ORDERED: SODIUM CHLORIDE 500 ML IV STA (10:17)
[2017-06-07] MEDS ORDERED: MECLIZINE HCL 25 MG TABLET (FP) ONE (10:22)
[2017-06-07 10:25] LABS: ALBUMIN 4.1 g/dl (3.4-5.0); ANION GAP 8 (8-16); BILIRUBIN,TOTAL 0.7 mg/dL (0.2-1.0); BLOOD UREA NITROGEN 16 mg/dL (7-18); CALCIUM 9.5 mg/dL (8.5-10.1); CHLORIDE 97 mmol/L (98-107); CO2 28 mmol/L (21-32); CREATININE 1.2 mg/dL (0.55-1.02); LIPASE 65 U/L (73-393); SGOT/AST 14 U/L (15-37); SGPT/ALT 24 U/L (12-78); SODIUM 133 mmol/L (136-145); TOT PROT 7.6 g/dl (6.4-8.2)
[2017-06-07 10:28] LABS: ALK PHOS 95 U/L (45-117); N-TERMINAL BNP 685.18 pg/ml (5-450)
[2017-06-07 10:59] LABS: GLUCOSE,RANDOM 452 mg/dL (74-106)
[2017-06-07] MEDS ORDERED: INSULIN REGULAR HUMAN 100 UNITS/ML *VIAL IVPUSH ONE (11:13)
[2017-06-07] MEDS ORDERED: INSULIN REGULAR HUMAN 100 UNITS/ML *VIAL ONE (11:30)
[2017-06-07 12:50] LABS: URINE APPEARANCE CLEAR; URINE BILIRUBIN NEGATIVE (NEGATIVE); URINE BLOOD NEGATIVE (NEGATIVE); URINE COLOR STRAW; URINE GLUCOSE (UA) 3+ (NEGATIVE); URINE KETONE NEGATIVE (NEGATIVE); URINE LEUK ESTERASE NEGATIVE (NEGATIVE); URINE NITRITE NEGATIVE (NEGATIVE); URINE PROTEIN NEGATIVE (NEGATIVE); URINE UROBILINOGEN NEGATIVE mg/dL (0.2-1.0)
[2017-06-07] MEDS ORDERED: ACETAMINOPHEN 325 MG TABLET (FP) PO PRN (12:59)
--- NOTE | 2017-06-07 13:41 | HP ---
Admitting History and Physical - Primary Care Physician PCP: Ro Espana - Admission Chief Complaint: dizziness, pain History of Present Illness: HPI This is a 77 year old female with HTN, HLD, IDDM, chronic arthritis, incontinence, anxiety who brought herself to the hospital with innumerable complaints, primary one being L shoulder pain disrupting sleep, lower abdominal pain and dizziness x2 months. She states she feels dizziness all over her body and when she moves her shoulder hurts. She was seen on 05/22/17 for same complaints, CT head negative. CTAP at that time also showed mild colitis and was discharged on augmentin and flagyl to which was completed. On 04/14/17 she had an MRI of her L shoulder and it showed a tear of the distal suprapihatus tendon an retraction of musclotenirtous junction The patient staters her blood pressure and sugar are not controlled even though she takes her medication. She denies fever, chills, sob, chest pain, n/v, she is very tried and wants to sleep but then wont be able to sleep at night. History Source: Patient, Medical Record Limitations to Obtaining History: No Limitations - Past Medical History Cardiovascular: Yes: HTN, Hyperlipdemia Endocrine: Yes: Diabetes Mellitus - Smoking History Smoking history: Never smoked Aproximately how many cigarettes per day: 0 - Alcohol/Substance Use Hx Alcohol Use: No Home Medications - Allergies Allergies/Adverse Reactions: Allergies Allergy/AdvReac Type Severity Reaction Status Date / Time valsartan [From Diovan] Allergy Verified 06/07/17 09:14 - Home Medications Home Medications: Ambulatory Orders Aspirin [ASA -] 81 mg PO DAILY 09/09/15 Dapagliflozin Propanediol [Farxiga] 5 mg PO DAILY 06/07/17 Olmesartan/Hydrochlorothiazide [Benicar Hct 40-12.5MG Tab] 1 tab PO DAILY Review of Systems - Review of Systems Constitutional: reports: Weakness Eyes: reports: No Symptoms HENT: reports: No Symptoms Neck: reports: No Symptoms, Swollen Glands Respiratory: reports: No Symptoms Gastrointestinal: reports: Abdominal Pain Genitourinary: reports: No Symptoms Musculoskeletal: reports: Extremity Pain Integumentary: reports: No Symptoms Neurological: reports: Dizziness, Weakness Endocrine: reports: No Symptoms Hematology/Lymphatic: reports: No Symptoms Psychiatric: reports: No Symptoms Physical Examination Vital Signs: Vital Signs Temperature 97.7 F 06/07/17 09:14 Pulse Rate 70 06/07/17 11:14 Respiratory Rate 18 06/07/17 09:14 Blood Pressure 201/82 06/07/17 11:14 O2 Sat by Pulse Oximetry (%) 100 06/07/17 09:14 Constitutional: Yes: No Distress Eyes: Yes: Conjunctiva Clear HENT: Yes: Atraumatic Neck: Yes: Supple Cardiovascular: Yes: Regular Rate and Rhythm, S1, S2 Respiratory: Yes: Regular, CTA Bilaterally Gastrointestinal: Yes: Normal Bowel Sounds, Soft, Other (lower abdominal skin graft healed, incisions healed) ...Rectal Exam: Yes: WNL Breast(s): Yes: WNL Musculoskeletal: Yes: WNL Extremities: Yes: WNL Edema: Yes Edema: LLE: Trace Peripheral Pulses WNL: Yes Integumentary: Yes: WNL Neurological: Yes: Alert, Oriented, Cran Nerves II-XII Intact Psychiatric: Yes: Alert, Oriented Labs: CBC, BMP 06/07/17 10:00 06/07/17 10:00 Imaging - Results Chest X-ray: Report Reviewed EKG: Report Reviewed Problem List - Problems (1) Dizziness Code(s): R42 - DIZZINESS AND GIDDINESS (2) Hyperglycemia Code(s): R73.9 - HYPERGLYCEMIA, UNSPECIFIED (3) Weakness Code(s): R53.1 - WEAKNESS Assessment/Plan Assessment: 77 year old female admitted with dizziness, weakness, L shoulder pain Plan: 1. L shoulder pain - MRI 04/14/17 L shoulder with tear of the distal suprapihatus tendon an retraction of musclotenirtous junction - Ortho consult - Tylenol prn pain 2. Dizziness - Possible due to HTN and hyperglycemia - Pt improved with antivert - If continues after sugar and bp controlled, can make standing 3. HTN - Elevated in ED, now controlled - Continue benicar for now and monitor bp 4. DM II, hyperglycemia - Improved with 10 units insulin in ED - Start ISS, BGM ACHS 5. DVT - Lovenox sq Visit type - Emergency Visit Emergency Visit: Yes ED Registration Date: 06/07/17 Care time: The patient presented to the Emergency Department on the above date and was hospitalized for further evaluation of their emergent condition. - New Patient This patient is new to me today: Yes Date on this admission: 06/07/17 - Critical Care Critical Care patient: No Hospitalist Screening - Colonoscopy Questionnaire Colonoscopy Questionnaire: Colonoscopy Questionnaire - Patient: 50 - 75 years old and never had a screening colonoscopy: Unknown History of colon or rectal polyps, or CA: Unknown History of IBD, Crohn's disease or UC: Unknown History of abdominal radiation therapy as a child: Unknown - Relative: 1 with colon or rectal CA, or polyps at age 60 or younger: Unknown Colon or rectal CA diagnosed at age 45 or younger: Unknown Multiple relatives with colon or rectal CA: Unknown - Outcome: Screening Result: Negative Screen
[2017-06-07] MEDS: INSULIN SLIDING SCALE (NOVOLOG) 1 VIAL SQ SCH ×2 (16:47→21:12)
[2017-06-07 17:01] VITALS: BMI 24.9
[2017-06-07] MEDS ORDERED: INSULIN (NOVOLOG) ASPART 100 UNITS/ML 10ML VIAL ONE (17:11)
--- NOTE | 2017-06-07 21:54 | CONS ---
DATE OF CONSULTATION: 06/07/2017 CHIEF COMPLAINT: Left shoulder pain. HISTORY OF PRESENT ILLNESS: This is a 77-year-old female who has had longstanding shoulder pain. Pain wakes her at night. She is also coming in for abdominal pain at the same time. She notes the pain is felt in the shoulder. It is worse at night and wakes her up from sleep. She has difficulty raising the shoulder. This has been going on for quite some time, although she is not entirely sure how long for. She did have an MRI demonstrating full-thickness rotator cuff tear with retraction. She denies doing any physical therapy for this. She denies having any other previous cortisone injections. PAST MEDICAL HISTORY: Significant for hypertension as well as diabetes. SOCIAL HISTORY: Denies alcohol, tobacco, or drugs. MEDICATIONS: Reviewed as in chart. MEDICATION ALLERGIES: VALSARTAN. REVIEW OF SYMPTOMS: Negative for any constitutional, HEENT, respiratory, genitourinary, or issues. PHYSICAL EXAMINATION: General: This is a well-appearing female in no acute distress. She is alert and oriented x3. Vital Signs: She is afebrile, and vital signs are stable albeit with elevated blood pressure. Left Upper Extremity: Demonstrates no skin lesions. There is no swelling. There is mild limitation to forward flexion as well as abduction, internal and external rotation. She has decreased strength throughout the rotator cuff. She has positive impingement signs. She has an intact neurovascular exam distally. ASSESSMENT: Left shoulder rotator cuff tear. PLAN: I reviewed today's findings with the patient. We discussed that rotator cuff tears can be quite painful. That being said, there is no need for immediate intervention. Her glucose is very poorly controlled, and steroid injection would only make this worse at this point. She is also not a surgical candidate at this time but could be if her other medical issues resolve. To help manage her pain in the meantime, she can consider use of anti-inflammatories. That being said, she does have some elevated creatinine and may be best served by using Tylenol as well as a course of physical therapy. She can follow up as an outpatient as needed. JOEL ROBLES M.D. [place]/[id number]
[2017-06-08] MEDS: INSULIN SLIDING SCALE (NOVOLOG) 1 VIAL SQ SCH ×4 (06:21→21:34)
[2017-06-08 07:52] LABS: BASO % 0.7 % (0-2.0); EOS % 2.3 % (0-4.5); HEMATOCRIT 35.9 % (32.4-45.2); HEMOGLOBIN 12.1 GM/dL (10.7-15.3); LYMPH % 29.4 % (8-40); MCH 27.6 pg (25.7-33.7); MCHC 33.7 g/dl (32.0-36.0); MEAN CELL VOLUME 81.9 fl (80-96); MEAN PLT VOLUME 9.5 fl (7.5-11.1); MONO % 7.6 % (3.8-10.2); PLATELET COUNT 348 K/MM3 (134-434); RBC 4.38 M/mm3 (3.60-5.2); RDW 15.5 % (11.6-15.6); WHITE BLOOD COUNT 7.5 K/mm3 (4.0-10.0)
[2017-06-08 08:19] LABS: ALBUMIN 3.2 g/dl (3.4-5.0); ANION GAP 6 (8-16); BLOOD UREA NITROGEN 17 mg/dL (7-18); CALCIUM 8.5 mg/dL (8.5-10.1); CHLORIDE 106 mmol/L (98-107); CO2 29 mmol/L (21-32); CREATININE 0.9 mg/dL (0.55-1.02); GLUCOSE,RANDOM 135 mg/dL (74-106); MAGNESIUM 2.3 mg/dL (1.8-2.4); PHOSPHOROUS 3.1 mg/dL (2.5-4.9); POTASSIUM 4.5 mmol/L (3.5-5.1); SGOT/AST 12 U/L (15-37); SGPT/ALT 15 U/L (12-78); SODIUM 141 mmol/L (136-145)
[2017-06-08 08:20] LABS: ALK PHOS 76 U/L (45-117); BILIRUBIN,TOTAL 0.7 mg/dL (0.2-1.0)
[2017-06-08] MEDS ORDERED: HYDROCHLOROTHIAZIDE 12.5 MG CAPSULE (FP) PO SCH (10:00)
[2017-06-08] MEDS ORDERED: PATIENT'S OWN MEDICATION (NON-FORMULARY) (Olmesartan/Hydrochlorothiazide [Benicar Hct 40-1 PO SCH (10:00)
[2017-06-08] MEDS ORDERED: VALSARTAN 160 MG TABLET (UD) PO SCH (10:00)
--- NOTE | 2017-06-08 10:12 | PN ---
Progress Note, Physician History of Present Illness: NAD seen by ortho-no immediate need for intervention for her rotator cuff -to be seen by Neurology and Endocrinology -Last CT head on 05/22/17 showed -Repeat CT head report pending -BGM better controlled -Dietary compliance outpatient an issue - Current Medication List Current Medications: Active Medications Acetaminophen (Tylenol -) 650 mg PO Q4H PRN PRN Reason: PAIN LEVEL 4 - 6 Aspirin (Asa -) 81 mg PO DAILY JOYCE Enoxaparin Sodium (Lovenox -) 40 mg SQ DAILY JOYCE Hydrochlorothiazide (Hctz -) 12.5 mg PO DAILY JOYCE Insulin Aspart (Novolog Vial Sliding Scale -) 0 vial SQ ACHS JOYCE PRN Reason: Protocol Last Admin: 06/08/17 06:21 Dose: Not Given Lisinopril (Prinivil) 40 mg PO DAILY [facility] - Objective Vital Signs: Vital Signs Temperature 98.5 F 06/08/17 09:00 Pulse Rate 89 06/08/17 09:00 Respiratory Rate 18 06/08/17 09:00 Blood Pressure 135/71 06/08/17 09:00 O2 Sat by Pulse Oximetry (%) 98 06/08/17 06:00 Constitutional: Yes: Well Nourished, No Distress, Calm Cardiovascular: Yes: Regular Rate and Rhythm Respiratory: Yes: Regular Gastrointestinal: Yes: Normal Bowel Sounds, Soft Musculoskeletal: Yes: Muscle Pain (BL shoulder) Extremities: Yes: WNL Edema: No Peripheral Pulses WNL: Yes Neurological: Yes: Alert, Oriented Psychiatric: Yes: Alert, Oriented Labs: CBC, BMP 06/08/17 06:00 06/08/17 06:00 Problem List - Problems (1) Uncontrolled diabetes mellitus Assessment/Plan: -dietary compliance an issue -RD consult -Endocrinology consult -Insulin -diabetic diet -BGM Code(s): E11.65 - TYPE 2 DIABETES MELLITUS WITH HYPERGLYCEMIA Qualifiers: Diabetes mellitus type: type 2 (2) Dizziness Assessment/Plan: -Neurology consult -CT head report pending Code(s): R42 - DIZZINESS AND GIDDINESS (3) HTN (hypertension) Assessment/Plan: -better controlled -awaiting for home BP meds Code(s): I10 - ESSENTIAL (PRIMARY) HYPERTENSION Assessment/Plan see problem list
[2017-06-08] MEDS: LISINOPRIL 20 MG TABLET (FP) PO SCH (10:14)
[2017-06-08] MEDS: ASPIRIN 81 MG CHEWABLE TABLETS PO SCH (10:14)
[2017-06-08] MEDS: ENOXAPARIN NA (PORCINE) 40 MG/0.4 ML DISP.SYRIN SQ SCH (10:14)
--- NOTE | 2017-06-08 18:29 | CONSULT ---
Consult - text type - Consultation Consultation Note: NEUROLOGY CONSULTATION is greatly appreciated: Events reviewed. Patient examined with daughter at the bedside who aides in history. This 77 yo RH woman with H/O HTN and DM x 15 years was maintained on Farxiga, ASA, and Benicar. Known diabetic retinopathy requiring Rx in the past. Admitted after 3-4 weks of feeling progressive weakness, dizziness, unsteady gait and urinary frequency. Her daughter adds mild confusion and slurred speech. In ER Fhq=538 mg%. No obvious signs of infection. CT of head (reviewed) shows mild, diffuse atrophy and diffuse microvascular changes. Since admission dizziness, gait and speech have already improved. STEVENSON: No bruits. No external head trauma. NEURO: Awake, alert, Ox 3. MS/speech: Normal CN II-XII: Normal without nystagmus. Motor: No drift or tremor. Normal strength. Reduced KJ's. Absent AJ' s. Toes downgoing. Coord: No FTN dystaxia Sensory: Reduced vibration in feet. Romberg +/- Gait: Slightly wide-based and unsteady with turns. IMP: Non-focal neurological exam sig for moderate diabetic peripheral neuropathy. Toxic-metabolic encephalopathy due to hypergycemia. Improved. SUGGEST: Aggressive Rx of DM and HTN vs. DIRECTOR OF ONLINE MERCHANDISING microvascular disease. MRI of brain (C-) Check B12, RPR, TFT's. Home monitoring of BG and BP Neuro f/u for eval of neuropathy. Thank you very much, Panchito Helton MD
[2017-06-09] MEDS ORDERED: INSULIN (NOVOLOG) ASPART 100 UNITS/ML 10ML VIAL SQ ONE (01:00)
--- NOTE | 2017-06-09 01:36 | CONSULT ---
Consult Consult Specialty:: endocrine Referred by:: chris Kinney Reason for Consultation:: diabetes mellitus uncontrolled - History of Present Illness Chief Complaint: left shoulder pain History of Present Illness: 77 year old female with HTN, HLD, IDDM, chronic arthritis, incontinence, anxiety who brought herself to the hospital with innumerable complaints, primary one being L shoulder pain disrupting sleep, lower abdominal pain and dizziness x2 months. She states she feels dizziness all over her body and when she moves her shoulder hurts.workup in past showed tear in shoulder,has had elevated blood sugars,frequent urination,dry mouth,denies nausea or vomiting - History Source History Provided By: Patient - Past Medical History Cardio/Vascular: Yes: HTN, Hyperlipdemia Endocrine: Yes: Diabetes Mellitus - Alcohol/Substance Use Hx Alcohol Use: No - Smoking History Smoking history: Never smoked Aproximately how many cigarettes per day: 0 Home Medications - Allergies Allergies/Adverse Reactions: Allergies Allergy/AdvReac Type Severity Reaction Status Date / Time valsartan [From [place]] Allergy Verified 06/07/17 09:14 - Home Medications Home Medications: Ambulatory Orders Aspirin [ASA -] 81 mg PO DAILY 09/09/15 Dapagliflozin Propanediol [Farxiga] 5 mg PO DAILY 06/07/17 Olmesartan/Hydrochlorothiazide [Benicar Hct 40-12.5MG Tab] 1 tab PO DAILY Review of Systems - Review of Systems Constitutional: reports: Unintentional Wgt. Loss, Weakness Eyes: reports: No Symptoms HENT: reports: No Symptoms Neck: reports: No Symptoms Cardiovascular: reports: No Symptoms Respiratory: reports: No Symptoms Gastrointestinal: reports: No Symptoms Genitourinary: reports: No Symptoms Breasts: reports: No Symptoms Reported Musculoskeletal: reports: Extremity Pain, Muscle Cramps Integumentary: reports: No Symptoms Neurological: reports: Dizziness, Numbness, Weakness Endocrine: reports: Unexplained Weight Loss Physical Exam Vital Signs: Vital Signs Temperature 98.6 F 06/08/17 22:00 Pulse Rate 97 H 06/08/17 22:00 Respiratory Rate 20 06/08/17 22:00 Blood Pressure 168/73 06/08/17 22:00 O2 Sat by Pulse Oximetry (%) 98 06/08/17 18:00 Constitutional: Yes: Anxious Eyes: Yes: EOM Intact HENT: Yes: Normocephalic Neck: Yes: Trachea Midline Cardiovascular: Yes: Regular Rate and Rhythm Respiratory: Yes: CTA Bilaterally Gastrointestinal: Yes: Normal Bowel Sounds ...Rectal Exam: Yes: Deferred Renal/: Yes: WNL Breast(s): Yes: WNL Musculoskeletal: Yes: Muscle Pain, Muscle Weakness Extremities: Yes: Other Edema: No Neurological: Yes: Alert, Oriented ...Motor Strength: LUE Labs: CBC, BMP 06/08/17 06:00 06/08/17 06:00 Problem List - Problems (1) Dizziness Code(s): R42 - DIZZINESS AND GIDDINESS (2) HTN (hypertension) Code(s): I10 - ESSENTIAL (PRIMARY) HYPERTENSION (3) Hyperglycemia Code(s): R73.9 - HYPERGLYCEMIA, UNSPECIFIED (4) Uncontrolled diabetes mellitus Code(s): E11.65 - TYPE 2 DIABETES MELLITUS WITH HYPERGLYCEMIA Qualifiers: Diabetes mellitus type: type 2 Assessment/Plan Current Active Problems Dizziness (Acute) HTN (hypertension) (Acute) Hyperglycemia (Acute) Uncontrolled diabetes mellitus (Acute) Abnormal Lab Results 06/08/17 06/08/17 06:00 06:00 Anion Gap 6 L Random Glucose 135 H Hemoglobin A1c % 11.0 H AST 12 L Total Protein 6.0 L Albumin 3.2 L Laboratory Results - last 24 hr 06/08/17 06/08/17 06/08/17 06:00 06:00 06:00 WBC 7.5 RBC 4.38 Hgb 12.1 Hct 35.9 MCV 81.9 MCH 27.6 MCHC 33.7 RDW 15.5 Plt Count 348 MPV 9.5 Neutrophils % 60.0 Lymphocytes % 29.4 D Monocytes % 7.6 Eosinophils % 2.3 D Basophils % 0.7 Sodium 141 Potassium 4.5 Chloride 106 Carbon Dioxide 29 Anion Gap 6 L BUN 17 Creatinine 0.9 Creat Clearance w eGFR > 60 POC Glucometer Random Glucose 135 H Hemoglobin A1c % 11.0 H Calcium 8.5 Phosphorus 3.1 Magnesium 2.3 Total Bilirubin 0.7 AST 12 L ALT 15 Alkaline Phosphatase 76 Total Protein 6.0 L Albumin 3.2 L 06/08/17 06/08/17 06/08/17 06:20 11:31 16:45 WBC RBC Hgb Hct MCV MCH MCHC RDW Plt Count MPV Neutrophils % Lymphocytes % Monocytes % Eosinophils % Basophils % Sodium Potassium Chloride Carbon Dioxide Anion Gap BUN Creatinine Creat Clearance w eGFR POC Glucometer 129 314 198 Random Glucose Hemoglobin A1c % Calcium Phosphorus Magnesium Total Bilirubin AST ALT Alkaline Phosphatase Total Protein Albumin 06/08/17 21:03 WBC RBC Hgb Hct MCV MCH MCHC RDW Plt Count MPV Neutrophils % Lymphocytes % Monocytes % Eosinophils % Basophils % Sodium Potassium Chloride Carbon Dioxide Anion Gap BUN Creatinine Creat Clearance w eGFR POC Glucometer 354 Random Glucose Hemoglobin A1c % Calcium Phosphorus Magnesium Total Bilirubin AST ALT Alkaline Phosphatase Total Protein Albumin Laboratory Tests 06/08/17 06/08/17 06/08/17 11:31 16:45 21:03 POC Glucometer 314 198 354 plan: bgm qid novololg insulin doses levemir 35 units am levemir 20 units hs diet nutrition consult
[2017-06-09] MEDS: INSULIN DETEMIR 100 UNITS/ML MDV SQ SCH ×3 (01:38→21:19)
[2017-06-09] MEDS: INSULIN SLIDING SCALE (NOVOLOG) 1 VIAL SQ SCH ×4 (06:00→21:20)
[2017-06-09] MEDS ORDERED: INSULIN DETEMIR 100 UNITS/ML MDV SQ ONE ×2 (06:55→17:36)
[2017-06-09] MEDS ORDERED: INSULIN (NOVOLOG) ASPART 100 UNITS/ML 10ML VIAL ONE ×2 (06:55→20:14)
--- NOTE | 2017-06-09 09:04 | DS ---
Physical Examination Vital Signs: Vital Signs Temperature 98.1 F 06/09/17 05:41 Pulse Rate 66 06/09/17 05:41 Respiratory Rate 20 06/09/17 05:41 Blood Pressure 151/66 06/09/17 05:41 O2 Sat by Pulse Oximetry (%) 98 06/09/17 02:00 Constitutional: Yes: Well Nourished, No Distress, Anxious Cardiovascular: Yes: Regular Rate and Rhythm Respiratory: Yes: Regular Gastrointestinal: Yes: Normal Bowel Sounds, Soft Musculoskeletal: Yes: WNL Extremities: Yes: WNL Edema: No Peripheral Pulses WNL: Yes Neurological: Yes: Alert, Oriented Psychiatric: Yes: Alert, Oriented Labs: CBC, BMP 06/08/17 06:00 06/08/17 06:00 Discharge Summary Reason For Visit: DIZZINESS Current Active Problems Dizziness (Acute) HTN (hypertension) (Acute) Hyperglycemia (Acute) Uncontrolled diabetes mellitus (Acute) Hospital Course: This is a 77 year old female with HTN, HLD, IDDM, chronic arthritis, incontinence, anxiety who brought herself to the hospital with innumerable complaints, primary one being L shoulder pain disrupting sleep, lower abdominal pain and dizziness x2 months. She states she feels dizziness all over her body and when she moves her shoulder hurts. She was seen on 05/22/17 for same complaints, CT head negative. CTAP at that time also showed mild colitis and was discharged on augmentin and flagyl to which was completed. On 04/14/17 she had an MRI of her L shoulder and it showed a tear of the distal suprapihatus tendon an retraction of musclotenirtous junction The patient staters her blood pressure and sugar are not controlled even though she takes her medication. She denies fever, chills, sob, chest pain, n/v, she is very tried and wants to sleep but then wont be able to sleep at night. During her stay she had repeat CT head, which was unremarkable. She was evaluated by Neurology and Endocrinology. Her main problem is dietary compliance and uncontrolled NIDDM. Condition: Fair - Instructions Referrals: Ro Espana MD [Primary Care Provider] - Disposition: VNS/HOME HEALTH CARE - Home Medications Comprehensive Discharge Medication List: Ambulatory Orders Aspirin [ASA -] 81 mg PO DAILY 09/09/15 Dapagliflozin Propanediol [Farxiga] 5 mg PO DAILY 06/07/17 Olmesartan/Hydrochlorothiazide [Benicar Hct 40-12.5MG Tab] 1 tab PO DAILY
[2017-06-09] MEDS: ENOXAPARIN NA (PORCINE) 40 MG/0.4 ML DISP.SYRIN SQ SCH (10:40)
[2017-06-09] MEDS: ASPIRIN 81 MG CHEWABLE TABLETS PO SCH (10:41)
[2017-06-09] MEDS: PATIENT'S OWN MEDICATION (NON-FORMULARY) (Olmesartan/Hydrochlorothiazide [Benicar Hct 40-1 PO SCH (10:41)
[2017-06-09] MEDS: LISINOPRIL 20 MG TABLET (FP) PO SCH (10:41)
[2017-06-10 05:39] VITALS: TEMP 98
[2017-06-10] MEDS: INSULIN SLIDING SCALE (NOVOLOG) 1 VIAL SQ SCH ×2 (06:14→11:18)
[2017-06-10] MEDS: INSULIN DETEMIR 100 UNITS/ML MDV SQ SCH (07:10)
[2017-06-10] MEDS: PATIENT'S OWN MEDICATION (NON-FORMULARY) (Olmesartan/Hydrochlorothiazide [Benicar Hct 40-1 PO SCH (10:13)
[2017-06-10] MEDS: ENOXAPARIN NA (PORCINE) 40 MG/0.4 ML DISP.SYRIN SQ SCH (10:13)
[2017-06-10] MEDS: ASPIRIN 81 MG CHEWABLE TABLETS PO SCH (10:13)
[2017-06-10] MEDS: LISINOPRIL 20 MG TABLET (FP) PO SCH (10:14)
[2017-06-10 14:27] VITALS: BP 121/56; PULSE 75
== END 2017-06-10 16:31 | disposition home health service (06) ==
LOC: JER 09:09 → JERBED 12:09 → J7W 17:29
PROVIDERS: ADMIT Hospitalist; ATTEND Family Medicine
PROC: 3E033VG Introduction of Insulin into Peripheral Vein, Percutaneous Approach (ICD-10-PCS; principal; 2017-06-07)
PROC: 3E0337Z Introduction of Electrolytic and Water Balance Substance into Peripheral Vein, Percutaneous Approach (ICD-10-PCS; 2017-06-07)
PROC: 3E013VG Introduction of Insulin into Subcutaneous Tissue, Percutaneous Approach (ICD-10-PCS; 2017-06-07)
PROC: 3E013GC Introduction of Other Therapeutic Substance into Subcutaneous Tissue, Percutaneous Approach (ICD-10-PCS; 2017-06-07)
DX: R42 Dizziness and giddiness (principal); E11.65 Type 2 diabetes mellitus with hyperglycemia; E11.42 Type 2 diabetes mellitus with diabetic polyneuropathy; Z79.4 Long term (current) use of insulin; M75.102 Unspecified rotator cuff tear or rupture of left shoulder, not specified as traumatic; I10 Essential (primary) hypertension; E78.5 Hyperlipidemia, unspecified; M19.90 Unspecified osteoarthritis, unspecified site; F41.9 Anxiety disorder, unspecified; Z79.82 Long term (current) use of aspirin; G92 Toxic encephalopathy
CPT/HCPCS: 36415; 70450-TC; 70551-TC; 71045-TC-FY; 80053; 81003; 82550; 82607; 82962; 83036; 83690; 83735; 83880; 84100; 84443; 84484; 85025; 86593; 93005; 93010; 96372; 96374; 97116-GP; 97161-GP; 99285-25; G0378

== ENCOUNTER 2017-08-12 11:18 | Emergency (ER) | payer OTHER ==
[2017-08-12 11:25] VITALS: BMI 23.0
[2017-08-12 12:38] LABS: BASO % 0.2 % (0-2.0); EOS % 0.2 % (0-4.5); HEMATOCRIT 34.9 % (32.4-45.2); HEMOGLOBIN 11.6 GM/dL (10.7-15.3); MCH 26.7 pg (25.7-33.7); MCHC 33.1 g/dl (32.0-36.0); MEAN CELL VOLUME 80.5 fl (80-96); MEAN PLT VOLUME 8.6 fl (7.5-11.1); NEUT % 86.6 % (42.8-82.8); PLATELET COUNT 382 K/MM3 (134-434); RBC 4.33 M/mm3 (3.60-5.2); RDW 13.8 % (11.6-15.6); WHITE BLOOD COUNT 8.5 K/mm3 (4.0-10.0)
--- NOTE | 2017-08-12 12:39 | PDOC ---
History of Present Illness - General Chief Complaint: Nausea/Vomiting Stated Complaint: WEAKNESS, VOMITING Time Seen by Provider: 08/12/17 11:43 History Source: Patient Exam Limitations: No Limitations - History of Present Illness Initial Comments: 08/12/17 12:01 The patient is a 77F with a PMH of HTN, HLD, IDDM, anxiety, and chronic arthritis who presents to the ER with abdominal pain. The patient is describing diffuse abdominal pain, mostly located in her epigastrium, which is sharp and intermittent in nature without any exacerbating or alleviating factors. The patient states she's had NBNB vomiting and a hx of abdominal surgeries. LBM this morning and was normal. She does admit to recent antibiotic use but denies diarrhea. Past History - Past Medical History Allergies/Adverse Reactions: Allergies Allergy/AdvReac Type Severity Reaction Status Date / Time valsartan [From [employer]] Allergy Verified 08/17/17 07:19 Home Medications: Ambulatory Orders Aspirin [ASA -] 81 mg PO DAILY 09/09/15 Dapagliflozin Propanediol [Farxiga] 5 mg PO DAILY 06/07/17 Olmesartan/Hydrochlorothiazide [Benicar Hct 40-12.5MG Tab -] 1 tab PO DAILY Insulin Detemir [Levemir Flextouch] 100 unit SQ BID #1 insuln.pen 06/10/17 Insulin Lispro [Humalog Kwikpen U-100] 100 unit SQ AC #1 insuln.pen 06/10/17 Lisinopril [Prinivil] 40 mg PO DAILY #30 tablet 06/10/17 Donepezil HCl [Aricept -] 5 mg PO HS tablet 08/19/17 Duloxetine HCl [Cymbalta -] 30 mg PO DAILY capsule. 08/19/17 Insulin (Levemir) [Levemir Vial] 15 units SQ AM units 08/19/17 Loratadine [Claritin -] 10 mg PO DAILY tablet 08/19/17 Multivitamins [Multivit ([facility])] 1 tab PO DAILY tab 08/19/17 Pantoprazole Sodium [Protonix -] 40 mg PO DAILY #30 tablet.ec 08/19/17 Anemia: No Asthma: No Cancer: No Cardiac Disorders: No CVA: No COPD: No CHF: No DVT: No Dementia: No Diabetes: Yes (IDDM) GI Disorders: Yes (DIVERTICULOSIS,COLONIC POLYPS,HEMORRHOIDS,) Disorders: Yes (UTERINE POLYPS,URINARY INCONTINENCE) HTN: Yes Hypercholesterolemia: No Liver Disease: No Seizures: No Thyroid Disease: No - Surgical History Abdominal Surgery: No Appendectomy: Yes Cardiac Surgery: No Cholecystectomy: Yes Lung Surgery: No Neurologic Surgery: No Orthopedic Surgery: No - Suicide/Smoking/Psychosocial Hx Smoking Status: No Smoking History: Never smoked Have you smoked in the past 12 months: No Number of Cigarettes Smoked Daily: 0 Information on smoking cessation initiated: No Hx Alcohol Use: No Drug/Substance Use Hx: No Substance Use Type: None Hx Substance Use Treatment: No Review of Systems - Review of Systems Able to Perform ROS?: Yes Comments:: 08/12/17 12:40 GENERAL/CONSTITUTIONAL: No fever or chills. No weakness. HEAD, EYES, EARS, NOSE AND THROAT: No change in vision. No ear pain or discharge. No sore throat. CARDIOVASCULAR: No chest pain, palpitations, or lightheadedness. RESPIRATORY: No cough, wheezing, shortness of breath, or hemoptysis. GASTROINTESTINAL: Positive for nausea, vomiting, and abdominal pain. GENITOURINARY: No dysuria, frequency, hematuria, or change in urination. MUSCULOSKELETAL: No joint or muscle swelling or pain. No neck or back pain. SKIN: No rash or lesions. NEUROLOGIC: No headache, numbness, tingling, weakness, loss of consciousness, or change in strength/sensation. ENDOCRINE: No increased thirst. No abnormal weight change. HEMATOLOGIC/LYMPHATIC: No anemia, easy bleeding, or history of blood clots. ALLERGIC/IMMUNOLOGIC: No hives or skin allergy. Is the patient limited Arabic proficient: No *Physical Exam - Vital Signs Last Vital Signs Temp Pulse Resp BP Pulse Ox 98.0 F 79 16 145/80 100 08/12/17 11:23 08/12/17 11:23 08/12/17 11:23 08/12/17 11:23 08/12/17 11:23 - Physical Exam Comments: 08/12/17 12:40 GENERAL: Well developed, well nourished. Awake and alert. No acute distress. HEENT: Normocephalic, atraumatic. Hearing grossly normal. Moist mucous membranes. PERRLA, EOMI. No conjunctival pallor. Sclera are non-icteric. NECK: Supple. Full ROM. CARDIOVASCULAR: Regular rate and rhythm. No murmurs, rubs, or gallops. PULMONARY: No evidence of respiratory distress. Lungs clear to auscultation bilaterally. No wheezing, rales or rhonchi. ABDOMINAL: Soft. Tenderness to deep palpation in epigastrium and LLQ with guarding. Non-distended. GENITOURINARY: No CVA tenderness bilaterally. MUSCULOSKELETAL: Normal range of motion at all joints. No bony deformities or tenderness. EXTREMITIES: No cyanosis. No clubbing. No edema. No calf tenderness or swelling. SKIN: Warm and dry. Normal capillary refill. No rashes. No jaundice. NEUROLOGICAL: Alert, awake, appropriate. Cranial nerves 2-12 intact. Normal speech. Gait is normal without ataxia. PSYCHIATRIC: Cooperative. Good eye contact. Appropriate mood and affect. ED Treatment Course - LABORATORY CBC & Chemistry Diagram: 08/12/17 12:18 08/12/17 12:18 - RADIOLOGY Radiology Studies Ordered: Category Date Time Status ABDOMEN & PELVIS CT WITH CONTR [CT] Stat CT Scan 08/12/17 12:00 Ordered CHEST X-RAY PORTABLE* [RAD] Stat Radiology 08/12/17 11:59 Ordered Medical Decision Making - Medical Decision Making 08/12/17 12:41 The patient is a 77F who presents with abdominal pain who presents with nausea and vomiting. CBC negative. Lipase negative. CMP significant for elevated glucose. Will order CTAP d/t diffuse nature of pt's abdominal pain. 08/12/17 15:12 CTAP shows: As also noted on a prior CT study of 05/22/2017 there is equivocal mild concentric wall thickening along the right colon and transverse colon which may be artifactual in nature due to underdistention versus representing acute/recurrent colitis. No obvious interval change is seen. Correlate clinically. Sigmoid diverticulosis without evidence of acute diverticulitis. Status post cholecystectomy. Incidental small stable hepatic cysts/hemangiomas. CK elevated with normal index. Pt updated with results. Pending UA. 08/12/17 15:39 I have discussed the pt with CLAUDE Chavez and will add flagyl to the pt's current levaquin medicine. Will update pt. Pending UA. 08/12/17 16:23 UA negative. Will d/c home with additional abx and PCP f/u. *DC/Admit/Observation/Transfer Diagnosis at time of Disposition: Colitis - Discharge Dispostion Disposition: HOME Condition at time of disposition: Stable Decision to Admit order: No - Referrals Referrals: Ro Espana MD [Primary Care Provider] - - Patient Instructions Printed Discharge Instructions: DI for Colitis Additional Instructions: Please follow up with your primary care physician in 2-3 days. Please return to the ER if you have any signs or symptoms of chest pain, shortness of breath, uncontrollable fever, chills, nausea, vomiting, numbness, tingling, or weakness in any part of your body, changes in vision, or slurred speech. Please take your medications as prescribed. Please return to the ER if symptoms persist, worsen, or new symptoms arise. - Post Discharge Activity
[2017-08-12 13:06] LABS: ALBUMIN 3.3 g/dl (3.4-5.0); ANION GAP 6 (8-16); BILIRUBIN,TOTAL 0.9 mg/dL (0.2-1.0); BLOOD UREA NITROGEN 12 mg/dL (7-18); CALCIUM 8.6 mg/dL (8.5-10.1); CHLORIDE 99 mmol/L (98-107); CO2 31 mmol/L (21-32); LIPASE 53 U/L (73-393); POTASSIUM 3.7 mmol/L (3.5-5.1); SGOT/AST 22 U/L (15-37); SODIUM 136 mmol/L (136-145); TOT PROT 6.5 g/dl (6.4-8.2)
[2017-08-12 13:11] LABS: ALK PHOS 106 U/L (45-117); SGPT/ALT 20 U/L (12-78)
[2017-08-12 13:15] LABS: GLUCOSE,RANDOM 320 mg/dL (74-106)
--- NOTE | 2017-08-12 13:18 | PDOC ---
Attending Attestation - Resident Resident Name: DarielmirelaYeison - ED Attending Attestation I have performed the following: I have examined & evaluated the patient, The case was reviewed & discussed with the resident, I agree w/resident's findings & plan - HPI HPI: 08/12/17 13:14 77y/o F p/w abd pain worsening over last several days, non-bloody loose stool, nausea. on levaquin for UTI, has h/o colitis with similar pain. - Physicial Exam PE: 08/12/17 15:54 vss well appearing speaking full sentences soft/nd. tender R abdomen and epigastric region, no guarding/rebound - Medical Decision Making 08/12/17 15:53 77y/o F multiple medical problems, h/o colitis last diagnosed 06/06, h/o recurring UTI currently on levaquin p/w abd pain/v for 2-3 days. Pain is similar to past colitis but worse in intensity. ? obstructed but passing flatus. labs, ua ivf, anti-emetic ctap reassess 08/12/17 15:55 ctap shows R and transverse colitis, no abscess or obstruction. no fever/leukocytosis, pt feels well, is ambulating and tolerating PO. Discussed with Dr. Espana, agrees pt is candidate for outpt treatment, will add flagyl and extend levaquin course understands return criteria. Heart Score/ECG Review #1 ECG reviewed & interpreted by me at: 12:46 General ECG Interpretation: Sinus Rhythm, Normal Rate (79), Normal Intervals ( qtc 456, LVH, qrs 118,), No acute ischemic changes Compared to previous ECG there are: No significant change
[2017-08-12] MEDS ORDERED: SODIUM CHLORIDE 0.9% 1000 ML INFUS.BAG IV ONE (13:36)
[2017-08-12] MEDS ORDERED: ONDANSETRON 4 MG/2 ML VIAL IVPUSH ONE (13:36)
[2017-08-12] MEDS ORDERED: ONDANSETRON 4 MG/2 ML VIAL ONE (13:37)
[2017-08-12 16:28] VITALS: BP 141/62; PULSE 66; TEMP 97.8
[2017-08-12 16:53] LABS: URINE APPEARANCE CLEAR; URINE BILIRUBIN NEGATIVE (<2.0 mg/dL); URINE COLOR STRAW; URINE GLUCOSE (UA) 3+ (NEGATIVE); URINE KETONE NEGATIVE (NEGATIVE); URINE LEUK ESTERASE NEGATIVE (NEGATIVE); URINE NITRITE NEGATIVE (NEGATIVE); URINE UROBILINOGEN NEGATIVE mg/dL (0.2-1.0)
[2017-08-12 17:11] LABS: URINE PROTEIN 2+ (NEGATIVE)
[2017-08-12 17:42] LABS: EPI CELLS RARE /HPF (FEW)
--- NOTE | 2017-08-14 08:54 | EKG ---
Test Reason : Blood Pressure : / mmHG Vent. Rate : 079 BPM Atrial Rate : 079 BPM P-R Int : 174 ms QRS Dur : 118 ms QT Int : 398 ms P-R-T Axes : 035 -43 017 degrees QTc Int : 456 ms SINUS RHYTHM WITH PREMATURE ATRIAL COMPLEXES LEFT AXIS DEVIATION LEFT VENTRICULAR HYPERTROPHY WITH QRS WIDENING NONSPECIFIC T WAVE ABNORMALITY ABNORMAL ECG WHEN COMPARED WITH ECG OF 07-JUN-2017 09:49, PREMATURE ATRIAL COMPLEXES ARE NOW PRESENT ST ELEVATION NOW PRESENT IN ANTERIOR LEADS T WAVE INVERSION NO LONGER EVIDENT IN LATERAL LEADS Confirmed by JOJO MALIN, VERONA ([id number]) on 08/14/2017 8:53:54 AM Referred By: Confirmed By:VERONA URIBE MD
== END 2017-08-12 16:28 | disposition home or self-care (01) ==
LOC: JER 11:18
PROC: 3E033GC Introduction of Other Therapeutic Substance into Peripheral Vein, Percutaneous Approach (ICD-10-PCS; principal; 2017-08-12)
DX: K52.9 Noninfective gastroenteritis and colitis, unspecified (principal); I10 Essential (primary) hypertension; E78.00 Pure hypercholesterolemia, unspecified; E11.9 Type 2 diabetes mellitus without complications; Z79.4 Long term (current) use of insulin; M12.9 Arthropathy, unspecified; F41.9 Anxiety disorder, unspecified; Z87.19 Personal history of other diseases of the digestive system; Z87.42 Personal history of other diseases of the female genital tract
CPT/HCPCS: 36415; 71045-TC-FY; 74177-TC; 80053; 81003; 81015; 82550; 82553; 83690; 84484; 85025; 93005; 93010; 99283-25; J7030

== ENCOUNTER 2017-08-17 07:09 | Inpatient (IN) | payer OTHER ==
[2017-08-17] MEDS ORDERED: ONDANSETRON 4 MG/2 ML VIAL IVPUSH ONE (08:12)
[2017-08-17] MEDS ORDERED: FAMOTIDINE IV 20 MG/12 ML VIAL IVPUSH ONE (08:13)
[2017-08-17] MEDS ORDERED: SODIUM CHLORIDE 500 ML IV STA ×2 (08:13→09:46)
[2017-08-17] MEDS ORDERED: ONDANSETRON 4 MG/2 ML VIAL ONE (08:16)
[2017-08-17] MEDS ORDERED: FAMOTIDINE 20 MG/50 ML IVPB 20 MG/50 ML MG IVPB ONE (08:16)
--- NOTE | 2017-08-17 08:30 | PDOC ---
History of Present Illness - General Chief Complaint: Rectal Bleed Stated Complaint: RECTAL BLEEDING Time Seen by Provider: 08/17/17 07:39 History Source: Patient - History of Present Illness Timing/Duration: other Associated Symptoms: reports: nausea/vomiting. denies: fever/chills Past History - Past Medical History Allergies/Adverse Reactions: Allergies Allergy/AdvReac Type Severity Reaction Status Date / Time valsartan [From [employer]] Allergy Verified 08/17/17 07:19 Home Medications: Ambulatory Orders Aspirin [ASA -] 81 mg PO DAILY 09/09/15 Dapagliflozin Propanediol [Farxiga] 5 mg PO DAILY 06/07/17 Olmesartan/Hydrochlorothiazide [Benicar Hct 40-12.5MG Tab -] 1 tab PO DAILY Insulin Detemir [Levemir Flextouch] 100 unit SQ BID #1 insuln.pen 06/10/17 Insulin Lispro [Humalog Kwikpen U-100] 100 unit SQ AC #1 insuln.pen 06/10/17 Lisinopril [Prinivil] 40 mg PO DAILY #30 tablet 06/10/17 Anemia: No Asthma: No Cancer: No Cardiac Disorders: No CVA: No COPD: No CHF: No DVT: No Dementia: No Diabetes: Yes (IDDM) GI Disorders: Yes (DIVERTICULOSIS,COLONIC POLYPS,HEMORRHOIDS,) Disorders: Yes (UTERINE POLYPS,URINARY INCONTINENCE) HTN: Yes Hypercholesterolemia: No Liver Disease: No Seizures: No Thyroid Disease: No - Surgical History Abdominal Surgery: No Appendectomy: Yes Cardiac Surgery: No Cholecystectomy: Yes Lung Surgery: No Neurologic Surgery: No Orthopedic Surgery: No - Suicide/Smoking/Psychosocial Hx Smoking Status: No Smoking History: Never smoked Have you smoked in the past 12 months: No Number of Cigarettes Smoked Daily: 0 Information on smoking cessation initiated: No Hx Alcohol Use: No Drug/Substance Use Hx: No Substance Use Type: None Hx Substance Use Treatment: No Review of Systems - Review of Systems Constitutional: No: Fever, Unexplained wgt Loss Respiratory: No: Shortness of Breath Cardiac (ROS): No: Chest Pain ABD/GI: Yes: Nausea, Rectal Bleeding. No: Diarrhea, Vomiting : No: Dysuria *Physical Exam - Vital Signs Last Vital Signs Temp Pulse Resp BP Pulse Ox 98.2 F 80 18 172/79 100 08/17/17 07:19 08/17/17 07:19 08/17/17 07:19 08/17/17 07:19 08/17/17 07:19 - Physical Exam General Appearance: Yes: Appropriately Dressed, Moderate Distress HEENT: positive: Normal Voice Neck: positive: Supple Respiratory/Chest: positive: Lungs Clear, Normal Breath Sounds. negative: Respiratory Distress Cardiovascular: positive: Regular Rate, S1, S2 Gastrointestinal/Abdominal: positive: Normal Bowel Sounds, Tender (diffusely), Soft. negative: Distended, Guarding, Rebound Rectal Exam: positive: other (gross BRBPR). negative: melena, hemorrhoids Musculoskeletal: negative: CVA Tenderness Extremity: positive: Normal Inspection Integumentary: positive: Dry, Warm Neurologic: positive: Fully Oriented, Alert, Normal Mood/Affect ED Treatment Course - LABORATORY CBC & Chemistry Diagram: 08/17/17 08:20 08/17/17 08:20 Medical Decision Making - Medical Decision Making 08/17/17 08:18 77-year-old female, history of hypertension, hyperlipidemia, insulin-dependent diabetic, neuropathy, arthritis, incontinence, chronic abd pain, colitis, anxiety, here with multiple complaints including her chronic abd pain which is diffuse and severe in nature, unable to describe. Pt states pain is getting worse every day. Also c/o nausea a/w her abd pain. Patient was seen in ED 5 days ago for pain and had CT showing possible recurrent colitis and diverticulosis without itis. Currently on Flagyl. States symptoms persist. States what really made her come in today was that after urinating this a.m. noted spontaneous rectal bleeding. Is adamant that bleeding was not from her urine. States since she has had decreased po intake, she hardly moves her bowels but did have normal BM 3 days ago. No diarrhea, black stool, dysuria, vomiting or fever. Normal colonoscopy/endoscopy several yrs ago per pt that were normal. No unexplained weight loss See exam Chronic abd pain/nausea Possible recurrent colitis and diverticulosis seen on CT 08/12 Currently on flagyl Luis A uncomfortable but stable w/ diffuse abd ttp -pain control -labs -trial of GI cocktail -reassess Hematochezia Stable w/ grossly bloody stool on rectal exam, no hemorrhoids Not on blood thinners Possible 2/2 diverticular disease seen on CT 08/12/17 -labs -IVF -admit 08/17/17 11:31 Labs unremarkable. Case discussed with Dr. Dailey, who is covering for Dr. Espana , patient's PMD. Patient admitted. M.D., requesting Dr. Robertson of GI for consult *DC/Admit/Observation/Transfer Diagnosis at time of Disposition: Hematochezia, Hyperglycemia Abdominal pain Qualifiers: Abdominal location: generalized Qualified Code(s): R10.84 - Generalized abdominal pain - Discharge Dispostion Condition at time of disposition: Fair Decision to Admit order: Yes - Referrals Referrals: Ro Espana MD [Primary Care Provider] - - Patient Instructions - Post Discharge Activity
[2017-08-17 08:44] LABS: BASO % 0.4 % (0-2.0); EOS % 0.6 % (0-4.5); HEMATOCRIT 36.5 % (32.4-45.2); LYMPH % 16.5 % (8-40); MCH 26.6 pg (25.7-33.7); MCHC 32.8 g/dl (32.0-36.0); MEAN CELL VOLUME 80.9 fl (80-96); MONO % 7.4 % (3.8-10.2); NEUT % 75.1 % (42.8-82.8); PLATELET COUNT 363 K/MM3 (134-434); RBC 4.52 M/mm3 (3.60-5.2); RDW 14.2 % (11.6-15.6); WHITE BLOOD COUNT 7.8 K/mm3 (4.0-10.0)
[2017-08-17 09:05] LABS: INR 1.01 (0.82-1.09); PROTHROMBIN TIME (PATIENT) 11.4 SEC (9.7-13.0)
[2017-08-17 09:15] LABS: ALBUMIN 3.2 g/dl (3.4-5.0); ANION GAP 6 (8-16); BILIRUBIN,TOTAL 0.8 mg/dL (0.2-1.0); BLOOD UREA NITROGEN 10 mg/dL (7-18); CALCIUM 8.8 mg/dL (8.5-10.1); CHLORIDE 97 mmol/L (98-107); CO2 31 mmol/L (21-32); CREATININE 0.9 mg/dL (0.55-1.02); LIPASE 62 U/L (73-393); POTASSIUM 4.4 mmol/L (3.5-5.1); SGOT/AST 15 U/L (15-37); SGPT/ALT 17 U/L (12-78); SODIUM 134 mmol/L (136-145); TOT PROT 6.6 g/dl (6.4-8.2)
[2017-08-17 09:18] LABS: ALK PHOS 101 U/L (45-117)
[2017-08-17 09:18] LABS: URINE APPEARANCE CLEAR; URINE BILIRUBIN NEGATIVE (<2.0 mg/dL); URINE COLOR STRAW; URINE GLUCOSE (UA) 3+ (NEGATIVE); URINE KETONE NEGATIVE (NEGATIVE); URINE LEUK ESTERASE NEGATIVE (NEGATIVE); URINE NITRITE NEGATIVE (NEGATIVE); URINE UROBILINOGEN NEGATIVE mg/dL (0.2-1.0)
[2017-08-17 09:28] LABS: URINE PROTEIN 2+ (NEGATIVE)
[2017-08-17 09:30] LABS: EPI CELLS RARE /HPF (FEW); URINE MUCUS RARE
[2017-08-17 09:44] LABS: GLUCOSE,RANDOM 393 mg/dL (74-106)
--- NOTE | 2017-08-17 10:30 | PDOC ---
*Physical Exam - Vital Signs Last Vital Signs Temp Pulse Resp BP Pulse Ox 98.2 F 80 18 172/79 98 08/17/17 07:19 08/17/17 07:19 08/17/17 07:19 08/17/17 07:19 08/17/17 08:00 ED Treatment Course - LABORATORY CBC & Chemistry Diagram: 08/17/17 08:20 08/17/17 08:20 - ADDITIONAL ORDERS Additional order review: Laboratory Results 08/17/17 08/17/17 08/17/17 09:07 08:20 08:20 PT with INR INR Sodium 134 L Potassium 4.4 Chloride 97 L Carbon Dioxide 31 Anion Gap 6 L BUN 10 Creatinine 0.9 Creat Clearance w eGFR > 60 Random Glucose 393 H* Calcium 8.8 Total Bilirubin 0.8 AST 15 ALT 17 Alkaline Phosphatase 101 Creatine Kinase 91 Troponin I < 0.02 Total Protein 6.6 Albumin 3.2 L Lipase 62 L Urine Color Straw Urine Appearance Clear Urine pH 7.0 Ur Specific [place] 1.014 Urine Protein 2+ H Urine Glucose (UA) 3+ H Urine Ketones Negative Urine Blood Negative Urine Nitrite Negative Urine Bilirubin Negative Urine Urobilinogen Negative Ur Leukocyte Esterase Negative Urine WBC (Auto) 1 Urine RBC (Auto) 1 Ur Epithelial Cells Rare Urine Mucus Rare Blood Type A POSITIVE Antibody Screen Negative 08/17/17 08:20 PT with INR 11.40 INR 1.01 Sodium Potassium Chloride Carbon Dioxide Anion Gap BUN Creatinine Creat Clearance w eGFR Random Glucose Calcium Total Bilirubin AST ALT Alkaline Phosphatase Creatine Kinase Troponin I Total Protein Albumin Lipase Urine Color Urine Appearance Urine pH Ur Specific [place] Urine Protein Urine Glucose (UA) Urine Ketones Urine Blood Urine Nitrite Urine Bilirubin Urine Urobilinogen Ur Leukocyte Esterase Urine WBC (Auto) Urine RBC (Auto) Ur Epithelial Cells Urine Mucus Blood Type Antibody Screen 08/17/17 08:20 RBC 4.52 MCV 80.9 MCHC 32.8 RDW 14.2 MPV 8.0 Neutrophils % 75.1 Lymphocytes % 16.5 D Monocytes % 7.4 D Eosinophils % 0.6 D Basophils % 0.4 - Medications Given in the ED: ED Medications Discontinued Medications Generic Name Dose Route Start Last Admin Trade Name Freq PRN Reason Stop Dose Admin Sodium Chloride 500 mls @ 500 mls/hr 08/17/17 08:13 08/17/17 08:38 Normal Saline - IV 08/17/17 09:12 500 mls/hr ASDIR STA Administration Famotidine 20 mg in 12 mls @ 144 mls/hr 08/17/17 08:13 08/17/17 08:38 Pepcid 20 Mg/12 Ml Push IVPUSH 08/17/17 08:17 144 mls/hr ONCE ONE Administration Ondansetron HCl 4 mg 08/17/17 08:12 08/17/17 08:38 Zofran Injection IVPUSH 08/17/17 08:13 4 mg ONCE ONE Administration Medical Decision Making - Medical Decision Making 08/17/17 10:25 Patient seen and evaluated with the nurse practitioner. I agree with the overall evaluation, assessment, and management with the following summary of visit: 77-year-old female with history of chronic abdominal pain, recently evaluated here and diagnosed with colitis on antibiotics, also with history of diverticulosis presents with her chronic abdominal pain but now with episodes of painless bright red blood per rectum. Agree with exam as noted 77-year-old female with acute on chronic abdominal pain, now with otherwise painless right red blood per rectum. Question diverticular bleeding, question worsening of her colitis. Labs, urinalysis Trend CBC consider repeating CT Will need admission *DC/Admit/Observation/Transfer Diagnosis at time of Disposition: Hematochezia, Hyperglycemia Abdominal pain Qualifiers: Abdominal location: generalized Qualified Code(s): R10.84 - Generalized abdominal pain - Referrals Referrals: Ro Espana MD [Primary Care Provider] - - Patient Instructions - Post Discharge Activity
--- NOTE | 2017-08-17 15:10 | HP ---
Admitting History and Physical - Primary Care Physician PCP: Ro Espana - Admission History of Present Illness: 77-year-old female, history of hypertension, hyperlipidemia, insulin-dependent diabetic, neuropathy, arthritis, incontinence, chronic abd pain, colitis, anxiety, here with multiple complaints including her chronic abd pain which is diffuse and severe in nature, unable to describe. Pt states pain is getting worse every day. Also c/o nausea a/w her abd pain. Patient was seen in ED 5 days ago for pain and had CT showing possible recurrent colitis and diverticulosis without itis. Currently on Flagyl. States symptoms persist. States what really made her come in today was that after urinating this a.m. noted spontaneous rectal bleeding. Is adamant that bleeding was not from her urine. States since she has had decreased po intake, she hardly moves her bowels but did have normal BM 3 days ago. No diarrhea, black stool, dysuria, vomiting or fever. Normal colonoscopy/endoscopy several yrs ago per pt that were normal. No unexplained weight loss patient has been complaining of urine incontinence as well - Past Medical History Cardiovascular: Yes: HTN, Hyperlipdemia Endocrine: Yes: Diabetes Mellitus - Smoking History Smoking history: Never smoked Have you smoked in the past 12 months: No Aproximately how many cigarettes per day: 0 - Alcohol/Substance Use Hx Alcohol Use: No Home Medications - Allergies Allergies/Adverse Reactions: Allergies Allergy/AdvReac Type Severity Reaction Status Date / Time valsartan [From Diovan] Allergy Verified 08/17/17 07:19 - Home Medications Home Medications: Ambulatory Orders Aspirin [ASA -] 81 mg PO DAILY 09/09/15 Dapagliflozin Propanediol [Farxiga] 5 mg PO DAILY 06/07/17 Olmesartan/Hydrochlorothiazide [Benicar Hct 40-12.5MG Tab -] 1 tab PO DAILY Insulin Detemir [Levemir Flextouch] 100 unit SQ BID #1 insuln.pen 06/10/17 Insulin Lispro [Humalog Kwikpen U-100] 100 unit SQ AC #1 insuln.pen 06/10/17 Lisinopril [Prinivil] 40 mg PO DAILY #30 tablet 06/10/17 Review of Systems - Review of Systems Gastrointestinal: reports: Abdominal Pain, Rectal Bleeding Physical Examination Vital Signs: Vital Signs Temperature 98.2 F 08/17/17 07:19 Pulse Rate 80 08/17/17 07:19 Respiratory Rate 18 08/17/17 07:19 Blood Pressure 172/79 08/17/17 07:19 O2 Sat by Pulse Oximetry (%) 98 08/17/17 08:00 Constitutional: Yes: Calm, Thin Neck: Yes: Trachea Midline Cardiovascular: Yes: Regular Rate and Rhythm, S1, S2 Respiratory: Yes: CTA Bilaterally Gastrointestinal: Yes: Tenderness Edema: No Neurological: Yes: Alert, Oriented Labs: CBC, BMP 08/17/17 08:20 08/17/17 08:20 Problem List - Problems (1) Hematochezia Assessment/Plan: h/h stable iv protonix NPO gi eval josephine hold aspirin Code(s): K92.1 - MELENA (2) Abdominal pain Assessment/Plan: GI eval pain control ct scan was done about 4 days ago showed diverticulosis Code(s): R10.9 - UNSPECIFIED ABDOMINAL PAIN Qualifiers: Abdominal location: generalized Qualified Code(s): R10.84 - Generalized abdominal pain (3) Uncontrolled diabetes mellitus Assessment/Plan: currently NPO till cleared by GI will keep on sliding scale for now endocrine consullt Code(s): E11.65 - TYPE 2 DIABETES MELLITUS WITH HYPERGLYCEMIA Qualifiers: Diabetes mellitus type: type 2 (4) HTN (hypertension) Assessment/Plan: lisinopril Code(s): I10 - ESSENTIAL (PRIMARY) HYPERTENSION
[2017-08-17] MEDS ORDERED: ONDANSETRON 4 MG/2 ML VIAL IVPUSH PRN (15:15)
[2017-08-17] MEDS ORDERED: HYDROCHLOROTHIAZIDE 25 MG TABLET (FP) ONE (16:13)
[2017-08-17] MEDS ORDERED: HYDROCHLOROTHIAZIDE 12.5 MG CAPSULE (FP) PO ONE (16:30)
[2017-08-17] MEDS: DEXTROSE 5%-0.45% SALINE 1,000 ML IV SCH (16:58)
[2017-08-17] MEDS: INSULIN SLIDING SCALE (NOVOLOG) 1 VIAL SQ SCH ×2 (16:59→21:11)
--- NOTE | 2017-08-17 19:27 | CON.GI ---
Consult Consult Specialty:: GI Reason for Consultation:: hematochezia - History of Present Illness History of Present Illness: chart reviewed. Events noted. As per initial intake: 77-year-old female, history of hypertension, hyperlipidemia, insulin-dependent diabetic, neuropathy , arthritis, incontinence, chronic abd pain, colitis, anxiety, here with multiple complaints including her chronic abd pain which is diffuse and severe in nature, unable to describe. Pt states pain is getting worse every day. Also c /o nausea a/w her abd pain. Patient was seen in ED 5 days ago for pain and had CT showing possible recurrent colitis and diverticulosis without itis. Currently on Flagyl. States symptoms persist. States what really made her come in today was that after urinating this a.m. noted spontaneous rectal bleeding. Is adamant that bleeding was not from her urine. States since she has had decreased po intake, she hardly moves her bowels but did have normal BM 3 days ago. No diarrhea, black stool, dysuria, vomiting or fever. Normal colonoscopy/endoscopy several yrs ago per pt that were normal. No unexplained weight loss patient has been complaining of urine incontinence as well CAT scan suggestive of diverticulosis without signs of inflammation. Thickened ascending and proximal transverse colon possibly attributed to peristalsis. Normal CBC and essentially normal CMP. At the time of the encounter, the patient appears comfortable and reports no abdominal symptoms. Denies new episodes of hematochezia, unintentional weight loss, dysphagia, odynophagia, GERD-like symptoms, low-grade fever, chills, or jaundice. The most recent episode of hematochezia was painless. There was no tenesmus, urgency, abdominal cramps, hematemesis, or coffee-ground emesis. There was no lightheadedness, chest pain, or palpitations.. She had 3 colonoscopies and 2 EGDs in the past. The most recent colonoscopy and EGD by Dr. Ibanez 4-[address] [facility]. The patient is on aspirin, and other medications. Denies chronic NSAID use, or alcohol. - History Source History Provided By: Patient, Medical Record - Past Medical History Cardio/Vascular: Yes: HTN, Hyperlipdemia ...: No Endocrine: Yes: Diabetes Mellitus - Alcohol/Substance Use Hx Alcohol Use: No - Smoking History Smoking history: Never smoked Have you smoked in the past 12 months: No Aproximately how many cigarettes per day: 0 Home Medications - Allergies Allergies/Adverse Reactions: Allergies Allergy/AdvReac Type Severity Reaction Status Date / Time valsartan [From Diovan] Allergy Verified 08/17/17 07:19 - Home Medications Home Medications: Ambulatory Orders Aspirin [ASA -] 81 mg PO DAILY 09/09/15 Dapagliflozin Propanediol [Farxiga] 5 mg PO DAILY 06/07/17 Olmesartan/Hydrochlorothiazide [Benicar Hct 40-12.5MG Tab -] 1 tab PO DAILY Insulin Detemir [Levemir Flextouch] 100 unit SQ BID #1 insuln.pen 06/10/17 Insulin Lispro [Humalog Kwikpen U-100] 100 unit SQ AC #1 insuln.pen 06/10/17 Lisinopril [Prinivil] 40 mg PO DAILY #30 tablet 06/10/17 Family Disease History - Family Disease History Family History: Unremarkable (Noncontributory) Review of Systems Findings/Remarks: as per H&P and HPI Physical Exam-GI Vital Signs: Vital Signs Temperature 98.1 F 08/17/17 18:00 Pulse Rate 68 08/17/17 18:00 Respiratory Rate 20 08/17/17 18:00 Blood Pressure 161/77 08/17/17 18:00 O2 Sat by Pulse Oximetry (%) 96 08/17/17 17:48 Constitutional: Yes: Well Nourished, No Distress, Anxious. No: Mild Distress, Moderate Distress, Severe Distress Eyes: Yes: Conjunctiva Clear HENT: Yes: Atraumatic Neck: Yes: Supple Cardiovascular: Yes: Regular Rate and Rhythm Respiratory: Yes: Regular Gastrointestinal Inspection: No: Distention ...Auscultate: Yes: Normoactive Bowel Sounds ...Palpate: Yes: Soft. No: Firm/Rigid, Guarding, Mass ...Rectal Exam: Yes: Deferred Neurological: Yes: Alert, Oriented Labs: CBC, BMP 08/17/17 08:20 08/17/17 08:20 INR, PTT INR 1.01 (0.82-1.09) 08/17/17 08:20 Laboratory Last Values WBC 7.8 K/mm3 (4.0-10.0) 08/17/17 08:20 RBC 4.52 M/mm3 (3.60-5.2) 08/17/17 08:20 Hgb 12.0 GM/dL (10.7-15.3) 08/17/17 08:20 Hct 36.5 % (32.4-45.2) 08/17/17 08:20 MCV 80.9 fl (80-96) 08/17/17 08:20 MCH 26.6 pg (25.7-33.7) 08/17/17 08:20 MCHC 32.8 g/dl (32.0-36.0) 08/17/17 08:20 RDW 14.2 % (11.6-15.6) 08/17/17 08:20 Plt Count 363 K/MM3 (134-434) 08/17/17 08:20 MPV 8.0 fl (7.5-11.1) 08/17/17 08:20 Neutrophils % 75.1 % (42.8-82.8) 08/17/17 08:20 Lymphocytes % 16.5 % (8-40) D 08/17/17 08:20 Monocytes % 7.4 % (3.8-10.2) D 08/17/17 08:20 Eosinophils % 0.6 % (0-4.5) D 08/17/17 08:20 Basophils % 0.4 % (0-2.0) 08/17/17 08:20 Nucleated RBC % 0 % (0-0) 08/17/17 08:20 PT with INR 11.40 SEC (9.7-13.0) 08/17/17 08:20 INR 1.01 (0.82-1.09) 08/17/17 08:20 Sodium 134 mmol/L (136-145) L 08/17/17 08:20 Potassium 4.4 mmol/L (3.5-5.1) 08/17/17 08:20 Chloride 97 mmol/L (98-107) L 08/17/17 08:20 Carbon Dioxide 31 mmol/L (21-32) 08/17/17 08:20 Anion Gap 6 (8-16) L 08/17/17 08:20 BUN 10 mg/dL (7-18) 08/17/17 08:20 Creatinine 0.9 mg/dL (0.55-1.02) 08/17/17 08:20 Creat Clearance w eGFR > 60 (>60) 08/17/17 08:20 POC Glucometer 290 UNITS (80-120) 08/17/17 16:56 Random Glucose 393 mg/dL (74-106) H* 08/17/17 08:20 Calcium 8.8 mg/dL (8.5-10.1) 08/17/17 08:20 Total Bilirubin 0.8 mg/dL (0.2-1.0) 08/17/17 08:20 AST 15 U/L (15-37) 08/17/17 08:20 ALT 17 U/L (12-78) 08/17/17 08:20 Alkaline Phosphatase 101 U/L (45-117) 08/17/17 08:20 Creatine Kinase 91 IU/L (26-192) 08/17/17 08:20 Troponin I < 0.02 ng/ml (0.00-0.05) 08/17/17 08:20 Total Protein 6.6 g/dl (6.4-8.2) 08/17/17 08:20 Albumin 3.2 g/dl (3.4-5.0) L 08/17/17 08:20 Lipase 62 U/L (73-393) L 08/17/17 08:20 Urine Color Straw 08/17/17 09:07 Urine Appearance Clear 08/17/17 09:07 Urine pH 7.0 (5.0-8.0) 08/17/17 09:07 Ur Specific [place] 1.014 (1.001-1.035) 08/17/17 09:07 Urine Protein 2+ (NEGATIVE) H 08/17/17 09:07 Urine Glucose (UA) 3+ (NEGATIVE) H 08/17/17 09:07 Urine Ketones Negative (NEGATIVE) 08/17/17 09:07 Urine Blood Negative (NEGATIVE) 08/17/17 09:07 Urine Nitrite Negative (NEGATIVE) 08/17/17 09:07 Urine Bilirubin Negative (<2.0 mg/dL) 08/17/17 09:07 Urine Urobilinogen Negative mg/dL (0.2-1.0) 08/17/17 09:07 Ur Leukocyte Esterase Negative (NEGATIVE) 08/17/17 09:07 Urine WBC (Auto) 1 /hpf (3-5) 08/17/17 09:07 Urine RBC (Auto) 1 /hpf (0-3) 08/17/17 09:07 Ur Epithelial Cells Rare /HPF (FEW) 08/17/17 09:07 Urine Mucus Rare 08/17/17 09:07 Blood Type A POSITIVE 08/17/17 08:20 Antibody Screen Negative 08/17/17 08:20 Imaging - Results Cat Scan: Report Reviewed ( 08/12/17) Problem List - Problems (1) Diverticulosis Code(s): K57.90 - DVRTCLOS OF INTEST, PART UNSP, W/O PERF OR ABSCESS W/O BLEED (2) Hematochezia Code(s): K92.1 - MELENA Assessment/Plan a 77-year-old female with hematochezia in settings of known diverticulosis without significant findings on the CAT scan. The most recent colonoscopy for 5 years ago was normal. Patient exhibits autonomic instability, or significant changes in hemoglobin. Suspect diverticular bleed, internal hemorrhoids, angiectasia. Rule out colorectal cancer. Presentation is not consistent with upper GI bleed. Plan colonoscopy. Discussed with the patient who agrees with the plan.
[2017-08-17] MEDS ORDERED: PEG 3350/NA SULF BICARB CL/KCL 4000 ML SOLN.RECON PO ONE (19:45)
[2017-08-17] MEDS ORDERED: BISACODYL 5 MG TABLET.DR (FP) PO ONE (19:45)
[2017-08-17] MEDS: PANTOPRAZOLE SODIUM 40 MG VIAL IVPUSH SCH (21:00)
[2017-08-18] MEDS: DEXTROSE 5%-0.45% SALINE 1,000 ML IV SCH (06:47)
[2017-08-18] MEDS: INSULIN SLIDING SCALE (NOVOLOG) 1 VIAL SQ SCH ×5 (06:47→21:24)
[2017-08-18] MEDS ORDERED: PT OWN MED DRAWER 7, Y5N ONE (06:56)
[2017-08-18] MEDS ORDERED: LISINOPRIL 20 MG TABLET (FP) PO SCH (08:00)
[2017-08-18 08:08] LABS: BASO % 0.6 % (0-2.0); EOS % 1.7 % (0-4.5); HEMATOCRIT 37.1 % (32.4-45.2); HEMOGLOBIN 12.5 GM/dL (10.7-15.3); MCH 27.1 pg (25.7-33.7); MCHC 33.5 g/dl (32.0-36.0); MEAN CELL VOLUME 80.7 fl (80-96); MEAN PLT VOLUME 8.8 fl (7.5-11.1); MONO % 6.9 % (3.8-10.2); NEUT % 74.8 % (42.8-82.8); PLATELET COUNT 343 K/MM3 (134-434); RDW 14.4 % (11.6-15.6); WHITE BLOOD COUNT 8.5 K/mm3 (4.0-10.0)
[2017-08-18 08:50] LABS: ANION GAP 8 (8-16); CALCIUM 8.6 mg/dL (8.5-10.1); CHLORIDE 97 mmol/L (98-107); CO2 33 mmol/L (21-32); MAGNESIUM 2.1 mg/dL (1.8-2.4); POTASSIUM 3.5 mmol/L (3.5-5.1); SODIUM 138 mmol/L (136-145)
[2017-08-18 08:57] LABS: ALBUMIN 3.2 g/dl (3.4-5.0); ALK PHOS 98 U/L (45-117); AMYLASE 15 U/L (25-115); BILIRUBIN,TOTAL 0.9 mg/dL (0.2-1.0); BLOOD UREA NITROGEN 9 mg/dL (7-18); CREATININE 0.8 mg/dL (0.55-1.02); GLUCOSE,RANDOM 267 mg/dL (74-106); LIPASE 45 U/L (73-393); PHOSPHOROUS 3.1 mg/dL (2.5-4.9); SGOT/AST 20 U/L (15-37); SGPT/ALT 18 U/L (12-78); TOT PROT 6.3 g/dl (6.4-8.2)
--- NOTE | 2017-08-18 09:38 | EKG ---
Test Reason : Blood Pressure : / mmHG Vent. Rate : 067 BPM Atrial Rate : 067 BPM P-R Int : 166 ms QRS Dur : 118 ms QT Int : 396 ms P-R-T Axes : 030 -44 -05 degrees QTc Int : 418 ms NORMAL SINUS RHYTHM WITH SINUS ARRHYTHMIA LEFT AXIS DEVIATION LEFT VENTRICULAR HYPERTROPHY WITH QRS WIDENING NONSPECIFIC T WAVE ABNORMALITY ABNORMAL ECG WHEN COMPARED WITH ECG OF 12-AUG-2017 12:46, PREMATURE ATRIAL COMPLEXES ARE NO LONGER PRESENT Confirmed by VERONA URIBE MD ([id number]) on 08/18/2017 9:38:44 AM Referred By: Confirmed By:VERONA URIBE MD
[2017-08-18] MEDS: PANTOPRAZOLE SODIUM 40 MG VIAL IVPUSH SCH ×2 (09:41→21:24)
[2017-08-18] MEDS ORDERED: PROPOFOL 20 ML ONE ×2 (11:26)
--- NOTE | 2017-08-18 12:25 | PROC ---
Endoscopy Procedure Endoscopy procedure completed. Please see scanned procedure report. moderate diverticulosis of the left colon. High fiber diet, avoid hard stools, constipations.
--- NOTE | 2017-08-18 12:43 | PN ---
Progress Note, Physician Chief Complaint: GI Bleeding History of Present Illness: Pt going for endoscopy Seen by GI H/H stable - Current Medication List Current Medications: Active Medications Dextrose/Sodium Chloride (D5-1/2ns -) 1,000 mls @ 75 mls/hr IV ASDIR [facility] Last Admin: 08/18/17 06:47 Dose: 75 mls/hr Insulin Aspart (Novolog Vial Sliding Scale -) 1 vial SQ ACHS [facility]; Protocol Last Admin: 08/18/17 11:43 Dose: Not Given Lisinopril (Prinivil) 20 mg PO DAILY@0800 [facility] Last Admin: 08/18/17 08:25 Dose: 20 mg Ondansetron HCl (Zofran Injection) 4 mg IVPUSH Q6H PRN PRN Reason: NAUSEA AND/OR VOMITING Last Admin: 08/18/17 01:22 Dose: 4 mg Pantoprazole Sodium (Protonix Iv) 40 mg IVPUSH BID [facility] Last Admin: 08/18/17 09:41 Dose: Not Given - Objective Vital Signs: Vital Signs Temperature 98.1 F 08/18/17 09:35 Pulse Rate 79 08/18/17 09:35 Respiratory Rate 18 08/18/17 09:35 Blood Pressure 155/79 08/18/17 09:35 O2 Sat by Pulse Oximetry (%) 98 08/18/17 09:40 Constitutional: Yes: Well Nourished, No Distress, Calm Labs: CBC, BMP 08/18/17 07:10 08/18/17 07:10 INR, PTT INR 1.01 (0.82-1.09) 08/17/17 08:20 Problem List - Problems (1) Diverticulosis Assessment/Plan: on CT abdomen -Seen by GI -going for colonoscopy and endoscopy Code(s): K57.90 - DVRTCLOS OF INTEST, PART UNSP, W/O PERF OR ABSCESS W/O BLEED (2) Hematochezia Assessment/Plan: -monitor H/H -Pantoprazole 40 mg po BID -Endoscopy and colonoscopy Code(s): K92.1 - MELENA (3) Diabetes Assessment/Plan: -BGM ACHS -Diabetic diet once cleared by GI -Novolog sliding scale -restart Levemir once po intake is resumed Code(s): E11.9 - TYPE 2 DIABETES MELLITUS WITHOUT COMPLICATIONS Qualifiers: Diabetes mellitus type: type 2 Assessment/Plan see problem list
[2017-08-18] MEDS: METOPROLOL TARTRATE 5 MG/5 ML VIAL IVPB PRN ×2 (15:01→23:11)
[2017-08-18] MEDS ORDERED: HYDROCHLOROTHIAZIDE 12.5 MG CAPSULE (FP) PO ONE (16:12)
[2017-08-18] MEDS ORDERED: DONEPEZIL HCL 5 MG TABLET (FP) PO SCH ×2 (16:30→16:31)
[2017-08-18] MEDS: LORATADINE 10 MG TABLET PO SCH (17:03)
[2017-08-18] MEDS: MULTIVITAMINS (DAILY MVI) TABLET (FP) PO SCH (17:03)
[2017-08-18] MEDS: DULoxetine HCL 30 MG CAPSULE.DR (FP) PO SCH (17:03)
[2017-08-18] MEDS: LOSARTAN 50MG/HCTZ 12.5MG 1 TAB (FP) PO SCH (17:03)
[2017-08-18] MEDS: LIPASE/PROTEASE/AMYLASE 6,000 UNIT CAPSULE PO SCH ×2 (17:10→17:23)
--- NOTE | 2017-08-18 23:44 | CONSULT ---
Consult Consult Specialty:: endocrine Referred by:: dr.saba britton Reason for Consultation:: diabetes mellitus - History of Present Illness Chief Complaint: high sugars History of Present Illness: 77-year-old female, history of hypertension, hyperlipidemia, insulin-dependent diabetic, neuropathy, arthritis, incontinence, chronic abd pain, colitis, anxiety, here with multiple complaints including her chronic abd pain which is diffuse and severe in nature, unable to describe. Pt states pain is getting worse every day. Also c/o nausea a/w her abd pain. Patient was seen in ED 5 days ago for pain and had CT showing possible recurrent colitis and diverticulosis without itis. Currently on Flagyl. States symptoms persist. States what really made her come in today was that after urinating this a.m. noted spontaneous rectal bleeding. she felt weak,dizzy and difficulty with controlling blood sugars,poor appetite - History Source History Provided By: Patient - Past Medical History Cardio/Vascular: Yes: HTN, Hyperlipdemia ...: No Endocrine: Yes: Diabetes Mellitus - Alcohol/Substance Use Hx Alcohol Use: No - Smoking History Smoking history: Never smoked Have you smoked in the past 12 months: No Aproximately how many cigarettes per day: 0 Home Medications - Allergies Allergies/Adverse Reactions: Allergies Allergy/AdvReac Type Severity Reaction Status Date / Time valsartan [From Diovan] Allergy Verified 08/17/17 07:19 - Home Medications Home Medications: Ambulatory Orders Aspirin [ASA -] 81 mg PO DAILY 09/09/15 Dapagliflozin Propanediol [Farxiga] 5 mg PO DAILY 06/07/17 Olmesartan/Hydrochlorothiazide [Benicar Hct 40-12.5MG Tab -] 1 tab PO DAILY Insulin Detemir [Levemir Flextouch] 100 unit SQ BID #1 insuln.pen 06/10/17 Insulin Lispro [Humalog Kwikpen U-100] 100 unit SQ AC #1 insuln.pen 06/10/17 Lisinopril [Prinivil] 40 mg PO DAILY #30 tablet 06/10/17 Review of Systems - Review of Systems Constitutional: reports: Weakness Eyes: reports: No Symptoms HENT: reports: No Symptoms Neck: reports: No Symptoms Cardiovascular: reports: Shortness of Breath Respiratory: reports: Exercise Intolerance, SOB on Exertion Gastrointestinal: reports: Bloating Genitourinary: reports: No Symptoms Breasts: reports: No Symptoms Reported Musculoskeletal: reports: Muscle Cramps, Muscle Weakness Integumentary: reports: No Symptoms Neurological: reports: Numbness, Weakness Endocrine: reports: Unexplained Weight Loss Hematology/Lymphatic: reports: No Symptoms Physical Exam Vital Signs: Vital Signs Temperature 97.2 F L 08/18/17 23:30 Pulse Rate 74 08/18/17 23:30 Respiratory Rate 20 08/18/17 23:30 Blood Pressure 141/75 08/18/17 23:30 O2 Sat by Pulse Oximetry (%) 98 08/18/17 13:28 Constitutional: Yes: Anxious Eyes: Yes: EOM Intact HENT: Yes: Normocephalic Neck: Yes: Trachea Midline Cardiovascular: Yes: Regular Rate and Rhythm Respiratory: Yes: CTA Bilaterally Gastrointestinal: Yes: Hypoactive Bowel Sounds, Tenderness, Epigastrium ...Rectal Exam: Yes: Deferred Renal/: Yes: WNL Breast(s): Yes: WNL Neurological: Yes: Alert, Oriented Labs: CBC, BMP 08/18/17 07:10 08/18/17 07:10 Problem List - Problems (1) Abdominal pain Code(s): R10.9 - UNSPECIFIED ABDOMINAL PAIN Qualifiers: Abdominal location: generalized Qualified Code(s): R10.84 - Generalized abdominal pain (2) Diabetes Code(s): E11.9 - TYPE 2 DIABETES MELLITUS WITHOUT COMPLICATIONS Qualifiers: Diabetes mellitus type: type 2 (3) Hyperglycemia Code(s): R73.9 - HYPERGLYCEMIA, UNSPECIFIED (4) Chest pain Code(s): R07.9 - CHEST PAIN, UNSPECIFIED Qualifiers: Chest pain type: unspecified Qualified Code(s): R07.9 - Chest pain, unspecified (5) Colitis Code(s): K52.9 - NONINFECTIVE GASTROENTERITIS AND COLITIS, UNSPECIFIED Assessment/Plan Current Active Problems Abdominal pain (Acute) Diabetes (Acute) Diverticulosis (Acute) Hematochezia (Acute) Hyperglycemia (Acute) Abnormal Lab Results 08/18/17 07:10 Chloride 97 L Carbon Dioxide 33 H Random Glucose 267 H Total Protein 6.3 L Albumin 3.2 L Total Amylase 15 L Lipase 45 L Laboratory Results - last 24 hr 08/18/17 08/18/17 08/18/17 06:46 07:10 07:10 WBC 8.5 RBC 4.60 Hgb 12.5 Hct 37.1 MCV 80.7 MCH 27.1 MCHC 33.5 RDW 14.4 Plt Count 343 MPV 8.8 Neutrophils % 74.8 Lymphocytes % 16.0 Monocytes % 6.9 Eosinophils % 1.7 D Basophils % 0.6 Nucleated RBC % 0 Sodium 138 Potassium 3.5 Chloride 97 L Carbon Dioxide 33 H Anion Gap 8 BUN 9 Creatinine 0.8 Creat Clearance w eGFR > 60 POC Glucometer 265 Random Glucose 267 H Calcium 8.6 Phosphorus 3.1 Magnesium 2.1 Total Bilirubin 0.9 AST 20 ALT 18 Alkaline Phosphatase 98 Total Protein 6.3 L Albumin 3.2 L Total Amylase 15 L Lipase 45 L 08/18/17 08/18/17 08/18/17 14:15 17:02 21:23 WBC RBC Hgb Hct MCV MCH MCHC RDW Plt Count MPV Neutrophils % Lymphocytes % Monocytes % Eosinophils % Basophils % Nucleated RBC % Sodium Potassium Chloride Carbon Dioxide Anion Gap BUN Creatinine Creat Clearance w eGFR POC Glucometer 197 214 124 Random Glucose Calcium Phosphorus Magnesium Total Bilirubin AST ALT Alkaline Phosphatase Total Protein Albumin Total Amylase Lipase Abnormal Lab Results 08/18/17 07:10 Chloride 97 L Carbon Dioxide 33 H Random Glucose 267 H Total Protein 6.3 L Albumin 3.2 L Total Amylase 15 L Lipase 45 L plan: bgm qid novolog insulin dose levemir titrate as needed levemir 15 unit am
[2017-08-19] MEDS ORDERED: INSULIN (NOVOLOG) ASPART 100 UNITS/ML 10ML VIAL ONE ×2 (06:26→11:30)
[2017-08-19] MEDS: INSULIN SLIDING SCALE (NOVOLOG) 1 VIAL SQ SCH ×2 (06:27→11:44)
[2017-08-19] MEDS ORDERED: PT OWN MED DRAWER 7, Y5N ONE ×2 (06:33→11:46)
[2017-08-19] MEDS ORDERED: INSULIN (LEVEMIR) 100 UNITS/ML UNITS SQ SCH (07:00)
[2017-08-19 08:22] LABS: BASO % 0.6 % (0-2.0); EOS % 4.3 % (0-4.5); HEMATOCRIT 31.9 % (32.4-45.2); HEMOGLOBIN 10.8 GM/dL (10.7-15.3); LYMPH % 21.1 % (8-40); MCH 27.3 pg (25.7-33.7); MCHC 33.7 g/dl (32.0-36.0); MEAN PLT VOLUME 8.3 fl (7.5-11.1); MONO % 7.7 % (3.8-10.2); NEUT % 66.3 % (42.8-82.8); PLATELET COUNT 314 K/MM3 (134-434); RBC 3.94 M/mm3 (3.60-5.2); RDW 14.1 % (11.6-15.6); WHITE BLOOD COUNT 9.3 K/mm3 (4.0-10.0)
[2017-08-19 08:46] LABS: ALBUMIN 2.7 g/dl (3.4-5.0); ANION GAP 4 (8-16); BILIRUBIN,TOTAL 0.9 mg/dL (0.2-1.0); CALCIUM 8.6 mg/dL (8.5-10.1); CHLORIDE 101 mmol/L (98-107); CO2 33 mmol/L (21-32); CREATININE 0.9 mg/dL (0.55-1.02); GLUCOSE,RANDOM 168 mg/dL (74-106); POTASSIUM 3.9 mmol/L (3.5-5.1); SGOT/AST 18 U/L (15-37); SGPT/ALT 19 U/L (12-78); SODIUM 138 mmol/L (136-145)
[2017-08-19 08:47] LABS: ALK PHOS 92 U/L (45-117); TOT PROT 5.5 g/dl (6.4-8.2)
[2017-08-19] MEDS: LIPASE/PROTEASE/AMYLASE 6,000 UNIT CAPSULE PO SCH ×3 (08:55→11:47)
[2017-08-19 09:13] LABS: BLOOD UREA NITROGEN 11 mg/dL (7-18)
[2017-08-19 09:26] VITALS: TEMP 98.2
[2017-08-19] MEDS: PANTOPRAZOLE SODIUM 40 MG VIAL IVPUSH SCH (09:35)
[2017-08-19] MEDS: LOSARTAN 50MG/HCTZ 12.5MG 1 TAB (FP) PO SCH (09:35)
[2017-08-19] MEDS: LORATADINE 10 MG TABLET PO SCH (09:35)
[2017-08-19] MEDS: MULTIVITAMINS (DAILY MVI) TABLET (FP) PO SCH (09:35)
[2017-08-19] MEDS: DULoxetine HCL 30 MG CAPSULE.DR (FP) PO SCH (09:35)
--- NOTE | 2017-08-19 11:22 | PN ---
Progress Note, Physician Chief Complaint: GI Bleeding History of Present Illness: Pt going for endoscopy Seen by GI H/H stable - Current Medication List Current Medications: Active Medications Donepezil HCl (Aricept -) 5 mg PO HS [facility] Last Admin: 08/18/17 21:24 Dose: 5 mg Duloxetine HCl (Cymbalta -) 30 mg PO DAILY [facility] Last Admin: 08/19/17 09:35 Dose: 30 mg HCTZ/Losartan Potassium (Hyzaar -) 1 tab PO DAILY [facility] Last Admin: 08/19/17 09:35 Dose: 1 tab Insulin Aspart (Novolog Vial Sliding Scale -) 1 vial SQ ACHS [facility]; Protocol Last Admin: 08/19/17 06:27 Dose: 3 units Insulin Detemir (Levemir Vial) 15 units SQ AM [facility] Last Admin: 08/19/17 06:24 Dose: 15 units Loratadine (Claritin -) 10 mg PO DAILY [facility] Last Admin: 08/19/17 09:35 Dose: 10 mg Metoprolol Tartrate (Lopressor Injection -) 5 mg IVPB Q4H PRN PRN Reason: HYPERTENSION Last Admin: 08/18/17 23:11 Dose: 5 mg Multivitamins/Minerals/Vitamin C (Tab-A-Vit -) 1 tab PO DAILY [facility] Last Admin: 08/19/17 09:35 Dose: 1 tab Ondansetron HCl (Zofran Injection) 4 mg IVPUSH Q6H PRN PRN Reason: NAUSEA AND/OR VOMITING Last Admin: 08/18/17 01:22 Dose: 4 mg Pancrelipase (Creon Dr 6,000 Units Capsule) 2 cap PO TIDCM [facility] Last Admin: 08/19/17 09:35 Dose: 2 cap Pantoprazole Sodium (Protonix Iv) 40 mg IVPUSH BID [facility] Last Admin: 08/19/17 09:35 Dose: 40 mg - Objective Vital Signs: Vital Signs Temperature 98.2 F 08/19/17 09:00 Pulse Rate 80 08/19/17 09:00 Respiratory Rate 20 08/19/17 09:00 Blood Pressure 150/79 08/19/17 09:00 O2 Sat by Pulse Oximetry (%) 98 08/18/17 21:00 Labs: CBC, BMP 08/19/17 07:48 08/19/17 07:48 INR, PTT INR 1.01 (0.82-1.09) 08/17/17 08:20 Problem List - Problems (1) Diverticulosis Code(s): K57.90 - DVRTCLOS OF INTEST, PART UNSP, W/O PERF OR ABSCESS W/O BLEED (2) Hematochezia Code(s): K92.1 - MELENA (3) Diabetes Code(s): E11.9 - TYPE 2 DIABETES MELLITUS WITHOUT COMPLICATIONS Qualifiers: Diabetes mellitus type: type 2
[2017-08-19 13:54] VITALS: BMI 25.1
[2017-08-19 14:05] VITALS: BP 146/67; PULSE 76
== END 2017-08-19 17:00 | disposition home or self-care (01) | DRG 392 ==
LOC: JER 07:09 → JERBED 11:30 → J6S 16:26
PROVIDERS: ADMIT Student in an Organized Health Care Education/Training Program; ATTEND Student in an Organized Health Care Education/Training Program
PROC: 0DJD8ZZ Inspection of Lower Intestinal Tract, Via Natural or Artificial Opening Endoscopic (ICD-10-PCS; principal; 2017-08-18 11:00)
DX: K57.30 Diverticulosis of large intestine without perforation or abscess without bleeding (principal); E11.65 Type 2 diabetes mellitus with hyperglycemia; K52.9 Noninfective gastroenteritis and colitis, unspecified; K64.4 Residual hemorrhoidal skin tags; Z79.4 Long term (current) use of insulin; E78.5 Hyperlipidemia, unspecified; I10 Essential (primary) hypertension; R32 Unspecified urinary incontinence; G62.9 Polyneuropathy, unspecified; Z86.010 Personal history of colon polyps
CPT/HCPCS: 36415; 80053; 81003; 81015; 82150; 82550; 82962; 83036; 83690; 83735; 84100; 84484; 85025; 85610; 86850; 86900; 86901; 93005; 93010; 97116-GP; 97161-GP; 99284-25

== ENCOUNTER 2017-12-03 12:17 | Emergency (ER) | payer OTHER ==
[2017-12-03 12:41] VITALS: BMI 24.7
[2017-12-03] MEDS ORDERED: LACTATED RINGERS SOLUTION 1,000 ML IV STA (12:49)
--- NOTE | 2017-12-03 12:49 | PDOC ---
History of Present Illness <Ella Lan - Last Filed: 12/03/17 17:04> - General History Source: Patient Exam Limitations: No Limitations - History of Present Illness Initial Comments: 12/03/17 14:43 77 YOF with a significant past medical history of HTN, HLD, DM , who presents to the emergency department with, 3 weeks of abdominal pain, nausea, and vomiting. She describes her abdominal pain as intermittently diffuse worsening in the middle. She describes her emesis as nonbloody and nonbilious. Her pain is alleviated by holding her breath and vomiting. She denies any worsening factors. She denies recent fevers, chills, headache or dizziness. She denies recent diarrhea or constipation. She denies recent dysuria, frequency, urgency or hematuria. She denies recent chest pain or shortness of breath. Allergies: Valsartan Past surgical history: Appendectomy. Cholecystectomy. . Social history: Nonsmoker. Denies EtOH use and recreational drug use. Primary Care Physician: Dr. Nguyen <Nikia Kirk - Last Filed: 12/03/17 18:06> - General Chief Complaint: Nausea/Vomiting Stated Complaint: VOMITING PAIN IN ABD Time Seen by Provider: 12/03/17 12:49 Past History <Ella Lan - Last Filed: 12/03/17 17:04> - Past Medical History Anemia: No Asthma: No Cancer: No Cardiac Disorders: No CVA: No COPD: No CHF: No DVT: No Dementia: No Diabetes: Yes GI Disorders: Yes (DIVERTICULOSIS,COLONIC POLYPS,HEMORRHOIDS,) Disorders: Yes (UTERINE POLYPS,URINARY INCONTINENCE) HTN: Yes Hypercholesterolemia: Yes Liver Disease: No Seizures: No Thyroid Disease: No - Surgical History Abdominal Surgery: Yes Appendectomy: Yes Cardiac Surgery: No Cholecystectomy: Yes Lung Surgery: No Neurologic Surgery: No Orthopedic Surgery: No - Suicide/Smoking/Psychosocial Hx Smoking Status: No Smoking History: Never smoked Have you smoked in the past 12 months: No Number of Cigarettes Smoked Daily: 0 Information on smoking cessation initiated: No Hx Alcohol Use: No Drug/Substance Use Hx: No Substance Use Type: None Hx Substance Use Treatment: No <Nikia Kirk - Last Filed: 12/03/17 18:06> - Past Medical History Allergies/Adverse Reactions: Allergies Allergy/AdvReac Type Severity Reaction Status Date / Time valsartan [From [employer]] Allergy Verified 12/03/17 16:04 Home Medications: Ambulatory Orders Aspirin [ASA -] 81 mg PO DAILY 09/09/15 Dapagliflozin Propanediol [Farxiga] 5 mg PO DAILY 06/07/17 Olmesartan/Hydrochlorothiazide [Benicar Hct 40-12.5MG Tab -] 1 tab PO DAILY Insulin Detemir [Levemir Flextouch] 100 unit SQ BID #1 insuln.pen 06/10/17 Insulin Lispro [Humalog Kwikpen U-100] 100 unit SQ AC #1 insuln.pen 06/10/17 Lisinopril [Prinivil] 40 mg PO DAILY #30 tablet 06/10/17 Donepezil HCl [Aricept -] 5 mg PO HS tablet 08/19/17 Duloxetine HCl [Cymbalta -] 30 mg PO DAILY capsule. 08/19/17 Insulin (Levemir) [Levemir Vial] 15 units SQ AM units 08/19/17 Loratadine [Claritin -] 10 mg PO DAILY tablet 08/19/17 Multivitamins [Multivit ([facility] Formulary)] 1 tab PO DAILY tab 08/19/17 Pantoprazole Sodium [Protonix -] 40 mg PO DAILY #30 tablet.ec 08/19/17 Ondansetron [Zofran Odt -] 4 mg SL TID PRN #9 od.tablet 12/03/17 Review of Systems - Review of Systems Able to Perform ROS?: Yes Comments:: 12/03/17 14:43 GENERAL/CONSTITUTIONAL: No fever or chills. No weakness. no sweats. HEAD, EYES, EARS, NOSE AND THROAT: No change in vision or hearing. No ear pain or discharge. No sore throat or mouth pain. No difficulty swallowing.. No congestion. CARDIOVASCULAR: No chest pain or palpitations, syncope or edema. RESPIRATORY: No SOB, cough, wheezing, or hemoptysis. +GASTROINTESTINAL +Nausea, vomiting, diffuse abdominal pain. No diarrhea or constipation. No bloody stools. GENITOURINARY: No hematuria, dysuria, frequency, urgency or other changes. MUSCULOSKELETAL: No joint or muscle swelling or pain. No neck or back pain. SKIN: No rash or changes in skin color or lesions. NEUROLOGIC: No headache, vertigo, loss of consciousness, or change in strength/ sensation. HEMATOLOGIC/LYMPHATIC: No anemia, easy bruising/bleeding, or history of blood clots. ALLERGIC/IMMUNOLOGIC: No allergies All other systems reviewed and negative, or as documented in HPI. <Lawrence Kirkfernanda Evans - Last Filed: 12/03/17 18:06> *Physical Exam - Vital Signs Last Vital Signs Temp Pulse Resp BP Pulse Ox 97.9 F 84 17 150/80 100 12/03/17 12:38 12/03/17 12:38 12/03/17 12:38 12/03/17 12:38 12/03/17 12:38 <Ella Lan - Last Filed: 12/03/17 17:04> - Vital Signs Last Vital Signs Temp Pulse Resp BP Pulse Ox 97.9 F 84 17 150/80 100 12/03/17 12:38 12/03/17 12:38 12/03/17 12:38 12/03/17 12:38 12/03/17 12:38 - Physical Exam Comments: 12/03/17 14:44 General: Well appearing, awake and alert, NAD. +HEENT: NCAT, PERRL, EOMI, clear conjunctiva, anicteric, dry mucous membranes, clear oropharynx, no oral lesions.. Neck: neck supple, FROM Resp: CTAB, normal and even respirations, no respiratory distress CVS: RRR, no murmurs, 2+ peripheral pulses throughout, no peripheral edema +Abdomen: Diffuse tenderness worse in the epigastric area and midabdomen. Soft, ND, no peritoneal signs. no myers's Back: nontender, normal inspection and ROM MSK: no edema, CHRISTIANSON x4, ROM intact. No clubbing or cyanosis. normal bulk and tone. Neuro: alert, oriented appropriately; no focal neurologic deficits. SILT, 5/5 distal and prox strength in all extrem. speech clear. Skin: warm and well perfused, cap refill <2 sec, normal color <Lawrence Kirkfernanda Evans - Last Filed: 12/03/17 18:06> ED Treatment Course - LABORATORY CBC & Chemistry Diagram: 12/03/17 13:10 12/03/17 13:10 - ADDITIONAL ORDERS Additional order review: Laboratory Results 12/03/17 13:10 Sodium 133 L Potassium 5.3 H Chloride 95 L Carbon Dioxide 27 Anion Gap 11 BUN 18 Creatinine 1.0 Creat Clearance w eGFR 54.05 Random Glucose 263 H Calcium 9.7 Total Bilirubin 1.2 H AST 47 H ALT 22 Alkaline Phosphatase 138 H Total Protein 8.2 Albumin 3.8 Lipase 92 12/03/17 13:10 RBC 5.08 MCV 79.9 L MCHC 33.0 RDW 15.2 MPV 9.2 Neutrophils % 75.1 D Lymphocytes % 18.0 D Monocytes % 5.8 Eosinophils % 0.5 Basophils % 0.6 - Medications Given in the ED: ED Medications Discontinued Medications Generic Name Dose Route Start Last Admin Trade Name Gabriele PRN Reason Stop Dose Admin Acetaminophen 1,000 mg 12/03/17 14:09 12/03/17 14:55 Ofirmev Injection - IVPB 12/03/17 14:10 1,000 mg ONCE ONE Administration Lactated Ringer's 1,000 mls @ 1,000 mls/hr 12/03/17 12:49 12/03/17 13:55 Lactated Ringers Solution IV 12/03/17 13:48 1,000 mls/hr ONCE STA Administration Famotidine/Sodium Chloride 20 mg in 50 mls @ 100 mls/hr 12/03/17 14:09 14:55 Pepcid 20 Mg Premixed Ivpb - IVPB 12/03/17 14:38 100 mls/hr ONCE ONE Administration Metoclopramide HCl 10 mg 12/03/17 14:09 12/03/17 14:55 Reglan Injection - IVPUSH 12/03/17 14:10 10 mg ONCE ONE Administration <Ella Lan - Last Filed: 12/03/17 17:04> - LABORATORY CBC & Chemistry Diagram: 12/03/17 13:10 12/03/17 13:10 <Nikia Kirk - Last Filed: 12/03/17 18:06> Medical Decision Making - Medical Decision Making 12/03/17 14:45 I, Nikia Kirk MD, attest that this document has been prepared under my direction and personally reviewed by me in its entirety. I further attest, that it accurately reflects all work, treatment, procedures and medical decision -making performed by me. MDM: [place] 77 year old female with a history of HTN, HLD, DM presenting with abdominal pain, n/v x 3 weeks, difficulty tolerating PO intake. Worsening sx x 3-4 days. DDx abdominal pain: GERD, gastritis, PUD, esophageal spasm, pancreatitis, hepatitis, UTI, ileus, SBO, medication side effect, hernia, diverticulitis, AAA , mesenteric ischemia. ACS/angina, DKA/HHS, electrolyte/metabolic derangements, dehydration./. Vital signs reviewed, wnl. Medical Plan: CBC, CMP, lipase, ECG, CT a/p to eval for intra abdominal pathology. given pepcid, IVF,tylenol, reglan, with clinical improvement. abdomen soft but diffusely tender, more in periumbilical/epigastrium and chronicity x 3 weeks, so will get CT Prior notes reviewed, including admissions, discharges and consultations. laboratory results and imaging reviewed, basic labs and lytes wnl, notable for mild hyponatremia, borderline K but no EKG changes. normal LFTs and lipase, reassuring. EKG normal sinus rhythm, left axis deviation. no interval abnormalities, narrow QRS, ST and T wave segments and morphology normal. Nonspecific T wave abnormalities in I,AVL, unchanged from prior. clinically doubt cardiac etiology , as no cp or sob, and more periumbilical abdominal pain/diffuse without peritoneal findings or suggestions of cardiopulm etiology. -feels improved with treatment, tolerating fluids and sips and crackers, eager for discharge. - CT a/p neg for intra abdominal pathology. Dispo: DC in stable condition, PCP followup, return precautions discussed. Rx zofran PRN nausea, f/u PCP for abdominal sx and stay well hydrated. 12/03/17 18:06 <Nikia Kirk - Last Filed: 12/03/17 18:06> *DC/Admit/Observation/Transfer - Attestations Scribe Attestion: 12/03/17 17:04 Documentation prepared by Ella Lan, acting as biomedical engineering aide for Nikia Kirk MD. <Ella Lan - Last Filed: 12/03/17 17:04> - Discharge Dispostion Decision to Admit order: No <Nikia Kirk - Last Filed: 12/03/17 18:06> Diagnosis at time of Disposition: Abdominal pain - Discharge Dispostion Disposition: HOME Condition at time of disposition: Improved - Prescriptions Prescriptions: Ondansetron [Zofran Odt -] 4 mg SL TID PRN #9 od.tablet PRN Reason: Nausea And/Or Vomiting - Referrals Referrals: Nahomi Nguyen MD [Primary Care Provider] - - Patient Instructions Printed Discharge Instructions: DI for Abdominal Pain-Adult, DI for Nausea -- Adult, DI for Vomiting -- Adult Additional Instructions: your blood work was normal CT abdomen and pelvis normal take zofran as needed for nausea and vomiting. keep hydrated follow up with your doctor for your nausea and vomiting. take small sips and small bites of food. Print Language: [place]OU[place]ORE[place]
[2017-12-03 13:50] LABS: BASO % 0.6 % (0-2.0); EOS % 0.5 % (0-4.5); HEMATOCRIT 40.6 % (32.4-45.2); HEMOGLOBIN 13.4 GM/dL (10.7-15.3); MCH 26.4 pg (25.7-33.7); MEAN CELL VOLUME 79.9 fl (80-96); MEAN PLT VOLUME 9.2 fl (7.5-11.1); MONO % 5.8 % (3.8-10.2); NEUT % 75.1 % (42.8-82.8); PLATELET COUNT 461 K/MM3 (134-434); RBC 5.08 M/mm3 (3.60-5.2); RDW 15.2 % (11.6-15.6); WHITE BLOOD COUNT 9.4 K/mm3 (4.0-10.0)
[2017-12-03] MEDS ORDERED: ACETAMINOPHEN 1000 MG/100 ML VIAL (NON FORMULARY) IVPB ONE (14:09)
[2017-12-03] MEDS ORDERED: FAMOTIDINE 20 MG/50 ML IVPB 20 MG/50 ML MG IVPB ONE ×2 (14:09→14:54)
[2017-12-03] MEDS ORDERED: METOCLOPRAMIDE HCL INJECTION 10 MG/2 ML VIAL IVPUSH ONE (14:09)
[2017-12-03 14:15] LABS: ALBUMIN 3.8 g/dl (3.4-5.0); ANION GAP 11 MMOL/L (8-16); BLOOD UREA NITROGEN 18 mg/dL (7-18); CALCIUM 9.7 mg/dL (8.5-10.1); CHLORIDE 95 mmol/L (98-107); CO2 27 mmol/L (21-32); GLUCOSE,RANDOM 263 mg/dL (74-106); LIPASE 92 U/L (73-393); SGPT/ALT 22 U/L (13-61); SODIUM 133 mmol/L (136-145)
[2017-12-03 14:17] LABS: ALK PHOS 138 U/L (45-117); BILIRUBIN,TOTAL 1.2 mg/dL (0.2-1.0); TOT PROT 8.2 g/dl (6.4-8.2)
[2017-12-03 14:32] LABS: POTASSIUM 5.3 mmol/L (3.5-5.1); SGOT/AST 47 U/L (15-37)
[2017-12-03] MEDS ORDERED: ACETAMINOPHEN INJECTION 100 ML IVPB ONE (14:54)
[2017-12-03] MEDS ORDERED: METOCLOPRAMIDE HCL INJECTION 10 MG/2 ML VIAL ONE (14:54)
[2017-12-03 18:24] VITALS: BP 203/86; PULSE 80; TEMP 98.2
--- NOTE | 2017-12-05 22:01 | EKG ---
Test Reason : Blood Pressure : / mmHG Vent. Rate : 088 BPM Atrial Rate : 088 BPM P-R Int : 168 ms QRS Dur : 114 ms QT Int : 378 ms P-R-T Axes : 005 -49 095 degrees QTc Int : 457 ms NORMAL SINUS RHYTHM LEFT ANTERIOR FASCICULAR BLOCK LEFT VENTRICULAR HYPERTROPHY WITH REPOLARIZATION ABNORMALITY CANNOT RULE OUT SEPTAL INFARCT (CITED ON OR BEFORE 18-NOV-2017) ABNORMAL ECG WHEN COMPARED WITH ECG OF 18-NOV-2017 22:39, QUESTIONABLE CHANGE IN INITIAL FORCES OF SEPTAL LEADS QT HAS LENGTHENED Confirmed by ANKUSH BURKETT MD ([id number]) on 12/05/2017 10:01:12 PM Referred By: Confirmed By:ANKUSH BURKETT MD
== END 2017-12-03 18:22 | disposition home or self-care (01) ==
LOC: JER 12:17
PROC: 3E033NZ Introduction of Analgesics, Hypnotics, Sedatives into Peripheral Vein, Percutaneous Approach (ICD-10-PCS; principal; 2017-12-03)
PROC: 3E033GC Introduction of Other Therapeutic Substance into Peripheral Vein, Percutaneous Approach (ICD-10-PCS; 2017-12-03)
PROC: 3E0337Z Introduction of Electrolytic and Water Balance Substance into Peripheral Vein, Percutaneous Approach (ICD-10-PCS; 2017-12-03)
DX: R10.9 Unspecified abdominal pain (principal)
CPT/HCPCS: 36415; 74177-TC; 80053; 83605; 83690; 85025; 93005; 93010; 96361; 96365; 96375; 99284-25; J0131

== ENCOUNTER 2018-02-01 10:21 | Emergency (ER) | payer OTHER ==
[2018-02-01 10:43] VITALS: BMI 30.2
--- NOTE | 2018-02-01 11:27 | PDOC ---
History of Present Illness - General History Source: Patient Exam Limitations: No Limitations - History of Present Illness Initial Comments: 02/01/18 11:55 The patient is a 77 year old female with a significant PMH of hypertension, hyperlipidemia, diabetes, diverticulosis, colon polyps, uterine polyps, and uterine incontinence who presents to the emergency department with chronic nausea and vomiting for 3 months. The patient reports some associated epigastric pain with her nausea and vomiting. She states that she experiences her vomiting after every meal with a sour taste in her mouth. The patient states that her associated epigastric pain is sharp and intermittent. She reports that her epigastric pain wakes her up out of her sleep at night and can last for hours. She was recently seen in the ED for similar complaint by which she was given zofran for her symptoms. The patient reports that her symptoms were minimizing but now states that the medication is no longer working. The patient also reports some associated weight loss and chest pain that feels like a burning sensation that is associated with her GERD. The patient denies any other symptoms. She denies any fever, chills, diarrhea, or urinary symptoms. She denies any shortness of breath, headache or dizziness. The patient denies any other complaints. PCP: Dr. Espana <Suzanne Mathias - Last Filed: 02/01/18 11:55> <Dirk Vincent - Last Filed: 02/01/18 17:37> - General Chief Complaint: Pain, Acute Stated Complaint: ABD PAIN Time Seen by Provider: 02/01/18 10:57 Past History <Suzanne Mathias - Last Filed: 02/01/18 11:55> - Past Medical History Anemia: No Asthma: No Cancer: No Cardiac Disorders: No CVA: No COPD: No CHF: No DVT: No Dementia: No Diabetes: Yes GI Disorders: Yes (DIVERTICULOSIS,COLONIC POLYPS,HEMORRHOIDS,) Disorders: Yes (UTERINE POLYPS,URINARY INCONTINENCE) HTN: Yes Hypercholesterolemia: Yes Liver Disease: No Seizures: No Thyroid Disease: No - Surgical History Abdominal Surgery: Yes Appendectomy: Yes Cardiac Surgery: No Cholecystectomy: Yes Lung Surgery: No Neurologic Surgery: No Orthopedic Surgery: No - Suicide/Smoking/Psychosocial Hx Smoking Status: No Smoking History: Never smoked Have you smoked in the past 12 months: No Number of Cigarettes Smoked Daily: 0 Information on smoking cessation initiated: No Hx Alcohol Use: No Drug/Substance Use Hx: No Substance Use Type: None Hx Substance Use Treatment: No <Dirk Vincent - Last Filed: 02/01/18 17:37> - Past Medical History Allergies/Adverse Reactions: Allergies Allergy/AdvReac Type Severity Reaction Status Date / Time valsartan [From Directly] Allergy Verified 02/01/18 10:39 Home Medications: Ambulatory Orders Aspirin [ASA -] 81 mg PO DAILY 09/09/15 Olmesartan/Hydrochlorothiazide [Benicar Hct 40-12.5MG Tab -] 1 tab PO DAILY Insulin Lispro [Humalog Kwikpen U-100] 100 unit SQ AC #1 insuln.pen 06/10/17 Donepezil HCl [Aricept -] 5 mg PO HS tablet 08/19/17 Multivitamins [Multivit ([facility] Formul[facility])] 1 tab PO DAILY tab 08/19/17 Ondansetron [Zofran Odt -] 4 mg SL TID PRN #9 od.tablet 12/03/17 Divalproex [Depakote -] 250 mg PO BID 02/01/18 Donepezil HCl 10 mg PO DAILY 02/01/18 Metoclopramide HCl 5 mg PO DAILY 02/01/18 Pramipexole Di-HCl [Pramipexole Dihydrochloride] 1 mg PO HS 02/01/18 Rosuvastatin [Crestor -] 10 mg PO DAILY 02/01/18 Review of Systems - Review of Systems Constitutional: No: Chills, Fever Respiratory: No: Cough, Shortness of Breath Cardiac (ROS): No: Chest Pain ABD/GI: Yes: Constipated, Nausea, Vomiting. No: Diarrhea : No: Dysuria, Frequency, Hematuria Neurological: No: Headache All Other Systems: Reviewed and Negative <Dirk Vincent - Last Filed: 02/01/18 17:37> *Physical Exam - Vital Signs Last Vital Signs Temp Pulse Resp BP Pulse Ox 98.2 F 85 16 178/79 H 100 02/01/18 10:40 02/01/18 10:40 02/01/18 10:40 02/01/18 10:40 02/01/18 10:40 - Physical Exam Comments: 02/01/18 11:55 GENERAL: The patient is awake, alert, and fully oriented, in no acute distress. HEAD: Normal with no signs of trauma. EYES: Pupils equal, round and reactive to light, extraocular movements intact, sclera anicteric, conjunctiva clear with no pallor. ENT: Ears normal, nares patent, oropharynx clear without exudates. Moist mucous membranes. NECK: Normal range of motion, supple without lymphadenopathy, JVD, or masses. LUNGS: Breath sounds equal, clear to auscultation bilaterally. No wheeze/ crackles. HEART: Regular rate and rhythm, normal S1 and S2 without murmur or rub. ABDOMEN:(+)left upper quadrant tenderness with guarding, healed incisional scars , palpable scar tissue in suprapubic umbilical region. Soft,nondistended. BS wnl. No rebound. No palpable masses. No hepatosplenomegaly. EXTREMITIES: Normal range of motion, no edema. No clubbing or cyanosis. No cords, erythema, or tenderness. NEUROLOGICAL: Cranial nerves II through XII grossly intact. Normal speech, gait deferred. PSYCH: Normal mood, normal affect. SKIN: Warm, Dry, normal turgor, no rashes or lesions noted. <Suzanne Mathias - Last Filed: 02/01/18 11:55> - Vital Signs Last Vital Signs Temp Pulse Resp BP Pulse Ox 98.2 F 85 16 178/79 H 100 02/01/18 10:40 02/01/18 10:40 02/01/18 10:40 02/01/18 10:40 02/01/18 10:40 <Dirk Vincent - Last Filed: 02/01/18 17:37> Heart Score/ECG Review #1 ECG reviewed & interpreted by me at: 12:23 General ECG Interpretation: Sinus Rhythm, Normal Rate (78), Normal Intervals ( qtc 444, LVH, qrs 116), No acute ischemic changes (downsloping ST segment I/AVL , septal Q waves,) Compared to previous ECG there are: No significant change (c/w 12/03/17) <Dirk Vincent - Last Filed: 02/01/18 17:37> ED Treatment Course - LABORATORY CBC & Chemistry Diagram: 02/01/18 12:00 02/01/18 12:00 <Dirk Vincent - Last Filed: 02/01/18 17:37> Medical Decision Making - Medical Decision Making 02/01/18 12:10 A portion of this note was documented by scribe services under my direction. I have reviewed the details of the note, within reason, and agree with the documentation with the following case summary and management plan written by me. 77-year-old female with history of hypertension, high cholesterol, diabetes, gallbladder and appendix surgery in the past presents with several months of intermittent abdominal pain, now associated with intractable nausea/vomiting that is postprandial, reports constipation, no hematemesis or melena or hematochezia. No fevers or chills, no cardiopulmonary complaints. Last evaluated here about 2 months ago, CAT scan at that time showed no acute pathology. She was discharged on Zofran with relief, presents now because the Zofran is not helping her symptoms anymore. Afebrile Vitals are within normal limits, slight hypertension Abdomen is soft and nondistended, tender with guarding in the left upper quadrant, no rebound. Bowel sounds are within normal limits. Incisional scar tissue, skin is otherwise normal. 77-year-old female with acute on chronic abdominal pain with intractable vomiting. Possible gastritis/gastroparesis, rule out SBO given her surgical history, rule out pancreatic pathology. Labs, urinalysis EKG CT of the abdomen and pelvis IV fluids, antiemetics Reassess 02/01/18 14:15 no leukocytosis, normal LFTs and Lipase, Cr normal but Troponin equivocal at 0.08. Will need to trend as has been normal in the past. CTAP pending. 02/01/18 15:50 CTAP without acute pathology. Evidence of ascending colon constipation, diverticulosis without diverticulitis, no other acute pathology. Trop2 pending, will give PO trial as feels better. Reassess. 02/01/18 16:26 trop 0.09, will need further trending. Dr. Espana called. 02/01/18 16:30 Accepted for obs tele by Dr. Espana, will trend trops. 02/01/18 17:33 now refusing admission. aware of full spectrum of risks. discussed with son at bedside, who also tried to convince her to stay. states she has cards appt this week and refuses to be admitted. signed AMA, understands return criteria, son will accompany home. <Dirk Vincent - Last Filed: 02/01/18 17:37> *DC/Admit/Observation/Transfer - Attestations Scribe Attestion: 02/01/18 11:56 Documentation prepared by Suzanne Mathias, acting as center medical director for Dirk Vincent MD. <Suzanne Mathias - Last Filed: 02/01/18 11:55> <Dirk Vincent - Last Filed: 02/01/18 17:37> Diagnosis at time of Disposition: Elevated troponin Abdominal pain Qualifiers: Abdominal location: generalized Qualified Code(s): R10.84 - Generalized abdominal pain - Discharge Dispostion Disposition: AGAINST MEDICAL ADVICE Condition at time of disposition: Fair - Referrals Referrals: Ro Espana MD [Primary Care Provider] - - Patient Instructions Printed Discharge Instructions: DI for Gastroparesis, DI for Chest Pain Additional Instructions: Activity as tolerated. Stay hydrated. A CAT scan performed today showed constipation but no other abnormality in the abdomen. Blood tests did show concerning results regarding your heart, and you were admitted for further workup but have refused and opted to follow up with your burn crew member as an outpatient this week. Continue your medications as previously prescribed by your physician. You should follow up with your burn crew member and Dr. Espana as soon as possible regarding today's emergency department visit. Return to the emergency department for any new or concerning symptoms, particularly persistent chest pain, difficulty breathing, fever/chills, persistent vomiting. - Post Discharge Activity
[2018-02-01] MEDS ORDERED: FAMOTIDINE 20 MG/50 ML IVPB 20 MG/50 ML MG IVPB ONE ×2 (11:29→11:38)
[2018-02-01] MEDS ORDERED: SODIUM CHLORIDE 500 ML IV ONE (11:29)
[2018-02-01] MEDS ORDERED: ONDANSETRON 4 MG/2 ML VIAL IVPB ONE (11:29)
[2018-02-01] MEDS ORDERED: ONDANSETRON 4 MG/2 ML VIAL ONE (11:37)
[2018-02-01] MEDS ORDERED: ACETAMINOPHEN 1000 MG/100 ML VIAL (NON FORMULARY) IVPB ONE (12:13)
[2018-02-01 12:39] LABS: BASO % 0.4 % (0-2.0); EOS % 0.9 % (0-4.5); HEMATOCRIT 40.9 % (32.4-45.2); HEMOGLOBIN 13.3 GM/dL (10.7-15.3); LYMPH % 18.3 % (8-40); MCH 26.4 pg (25.7-33.7); MCHC 32.5 g/dl (32.0-36.0); MEAN CELL VOLUME 81.4 fl (80-96); MEAN PLT VOLUME 8.9 fl (7.5-11.1); MONO % 7.1 % (3.8-10.2); NEUT % 73.3 % (42.8-82.8); PLATELET COUNT 437 K/MM3 (134-434); RBC 5.03 M/mm3 (3.60-5.2); RDW 14.5 % (11.6-15.6); WHITE BLOOD COUNT 8.9 K/mm3 (4.0-10.0)
[2018-02-01] MEDS ORDERED: ACETAMINOPHEN INJECTION 100 ML IVPB ONE (12:39)
[2018-02-01 13:19] LABS: ALBUMIN 2.9 g/dl (3.4-5.0); ALK PHOS 97 U/L (45-117); ANION GAP 6 MMOL/L (8-16); BILIRUBIN,TOTAL 0.7 mg/dL (0.2-1); BLOOD UREA NITROGEN 12 mg/dL (7-18); CALCIUM 8.4 mg/dL (8.5-10.1); CHLORIDE 102 mmol/L (98-107); CO2 31 mmol/L (21-32); CREATININE 0.8 mg/dL (0.55-1.3); GLUCOSE,RANDOM 171 mg/dL (74-106); LIPASE 81 U/L (73-393); MAGNESIUM 2.1 mg/dL (1.8-2.4); POTASSIUM 4.3 mmol/L (3.5-5.1); SGOT/AST 31 U/L (15-37); SGPT/ALT 18 U/L (13-61); SODIUM 139 mmol/L (136-145); TOT PROT 6.4 g/dl (6.4-8.2)
[2018-02-01 14:34] LABS: URINE APPEARANCE CLEAR; URINE BILIRUBIN NEGATIVE (<2.0 mg/dL); URINE COLOR STRAW; URINE GLUCOSE (UA) 2+ (NEGATIVE); URINE KETONE NEGATIVE (NEGATIVE); URINE LEUK ESTERASE TRACE (NEGATIVE); URINE NITRITE NEGATIVE (NEGATIVE); URINE PROTEIN 2+ (NEGATIVE); URINE UROBILINOGEN NEGATIVE mg/dL (0.2-1.0)
[2018-02-01 15:03] LABS: EPI CELLS RARE /HPF (FEW); URINE BACTERIA RARE /hpf (NONE SEEN); URINE HYALINE CAST 1 /lpf; URINE MUCUS RARE
--- NOTE | 2018-02-01 16:20 | EKG ---
Test Reason : Blood Pressure : / mmHG Vent. Rate : 078 BPM Atrial Rate : 078 BPM P-R Int : 162 ms QRS Dur : 116 ms QT Int : 390 ms P-R-T Axes : 034 -45 088 degrees QTc Int : 444 ms NORMAL SINUS RHYTHM LEFT ANTERIOR FASCICULAR BLOCK LEFT VENTRICULAR HYPERTROPHY WITH QRS WIDENING AND REPOLARIZATION ABNORMALITY ABNORMAL ECG WHEN COMPARED WITH ECG OF 03-DEC-2017 13:39, NO SIGNIFICANT CHANGE WAS FOUND Confirmed by MD Marlon, Kolton ([id number]) on 02/01/2018 4:19:47 PM Referred By: Confirmed By:Kolton Mason MD
[2018-02-01] MEDS ORDERED: ONDANSETRON 4 MG/2 ML VIAL IVPUSH PRN (16:34)
[2018-02-01 18:01] VITALS: BP 213/87; PULSE 82; TEMP 98.1
[2018-02-01] MEDS ORDERED: ROSUVASTATIN CA 10 MG TABLET (FP) PO SCH (22:00)
[2018-02-01] MEDS ORDERED: PRAMIPEXOLE DIHYDROCHLORIDE 1 MG TABLET PO SCH (22:00)
[2018-02-01] MEDS ORDERED: DIVALPROEX SODIUM 250 MG TABLET E.C. PO SCH (22:00)
[2018-02-01] MEDS ORDERED: PANTOPRAZOLE SODIUM 40 MG VIAL IVPUSH SCH (22:00)
[2018-02-01] MEDS ORDERED: HEPARIN NA (PORCINE) 5,000 UNITS/ML 1ML VIAL SQ SCH (22:00)
[2018-02-02] MEDS ORDERED: ASPIRIN 81 MG CHEWABLE TABLETS PO SCH (10:00)
[2018-02-02] MEDS ORDERED: HYDROCHLOROTHIAZIDE 12.5 MG CAPSULE (FP) PO SCH (10:00)
[2018-02-02] MEDS ORDERED: VALSARTAN 160 MG TABLET (UD) PO SCH (10:00)
[2018-02-02] MEDS ORDERED: PATIENT'S OWN MEDICATION (NON-FORMULARY) (Olmesartan/Hydrochlorothiazide [Benicar Hct 40-1 PO SCH (10:00)
== END 2018-02-01 17:30 | disposition left against medical advice (07) ==
LOC: JER 10:21
PROC: 3E033GC Introduction of Other Therapeutic Substance into Peripheral Vein, Percutaneous Approach (ICD-10-PCS; principal; 2018-02-01)
PROC: 3E033NZ Introduction of Analgesics, Hypnotics, Sedatives into Peripheral Vein, Percutaneous Approach (ICD-10-PCS; 2018-02-01)
PROC: 3E0337Z Introduction of Electrolytic and Water Balance Substance into Peripheral Vein, Percutaneous Approach (ICD-10-PCS; 2018-02-01)
DX: R79.89 Other specified abnormal findings of blood chemistry (principal); R10.84 Generalized abdominal pain; E11.9 Type 2 diabetes mellitus without complications; I10 Essential (primary) hypertension; E78.00 Pure hypercholesterolemia, unspecified
CPT/HCPCS: 36415; 71045-TC-FY; 74177-TC; 80053; 81003; 81015; 82550; 82553; 83036; 83690; 83735; 84484; 85025; 93005; 93010; 99282-25; J0131

== ENCOUNTER 2018-02-02 18:11 | Inpatient (IN) | payer OTHER ==
[2018-02-02] MEDS ORDERED: SODIUM CHLORIDE 1,000 ML IV STA (19:35)
[2018-02-02] MEDS ORDERED: ONDANSETRON 4 MG/2 ML VIAL IVPB ONE (19:39)
[2018-02-02] MEDS ORDERED: ACETAMINOPHEN 1000 MG/100 ML VIAL (NON FORMULARY) IVPB ONE (19:39)
[2018-02-02] MEDS ORDERED: FAMOTIDINE 20 MG/50 ML IVPB 20 MG/50 ML MG IVPB ONE ×2 (19:39→20:54)
--- NOTE | 2018-02-02 20:13 | PDOC ---
Attending Attestation - HPI HPI: 02/02/18 20:15 The patient is a 77 year old female, with a significant past medical history of hypertension, hyperlipidemia, diabetes, diverticulosis, colon polyps, uterine polyps, and urinary incontinence, who presents to the emergency department with , abdominal pain, nausea, vomiting, and constipation. Patients last bowel movement was 10 days ago and has not been tolerating PO intake. Patient was worked up for similar symptoms yesterday with pertinent findings of colon constipation, diverticulosis without diverticulitis, and elevated troponin. At that time the patient signed out AMA. Patient called her weapons system instrument mechanic who advised her to report to the ER for further evaluation and admission. She denies fever, chills, change in urinary symptoms, or shortness of breath. Allergies: Valsartan Past surgical history: Past surgical history: Appendectomy. Cholecystectomy. C- Section. Social history: Nonsmoker. Denies EtOH use and recreational drug use. Primary Care Physician: Dr. Espana [employer] Mud Analysis Captain: Dr. Marcum <Ella Lan - Last Filed: 02/02/18 20:15> - Resident Resident Name: Kanwal Dvais - ED Attending Attestation I have performed the following: I have examined & evaluated the patient, The case was reviewed & discussed with the resident, I agree w/resident's findings & plan, Exceptions are as noted - Physicial Exam PE: 02/02/18 23:25 Agree with exam in resident note - Medical Decision Making 02/02/18 23:25 77F seen here yesterday for same symptoms, troponin trending down, currently complaining of abd px, n/v inability to tolerate PO ACS unlikely Will admit for symptomatic care <Henrik Siegel - Last Filed: 02/02/18 23:26> Attestations - Attestations 02/02/18 20:16 Documentation prepared by Ella Lan, acting as medical staffing coordinator for Henrik Siegel MD. <Ella Lan - Last Filed: 02/02/18 20:15>
[2018-02-02 20:30] LABS: BASO % 0.4 % (0-2.0); EOS % 0.6 % (0-4.5); HEMATOCRIT 37.1 % (32.4-45.2); HEMOGLOBIN 12.5 GM/dL (10.7-15.3); LYMPH % 19.6 % (8-40); MCH 27.3 pg (25.7-33.7); MCHC 33.6 g/dl (32.0-36.0); MEAN CELL VOLUME 81.1 fl (80-96); MEAN PLT VOLUME 9.2 fl (7.5-11.1); MONO % 9.3 % (3.8-10.2); NEUT % 70.1 % (42.8-82.8); RBC 4.57 M/mm3 (3.60-5.2); RDW 14.4 % (11.6-15.6); WHITE BLOOD COUNT 10.5 K/mm3 (4.0-10.0)
[2018-02-02] MEDS ORDERED: ACETAMINOPHEN INJECTION 100 ML IVPB ONE (20:53)
[2018-02-02] MEDS ORDERED: ONDANSETRON 4 MG/2 ML VIAL ONE (20:53)
[2018-02-02 20:55] LABS: ALBUMIN 3.2 g/dl (3.4-5.0); ALK PHOS 100 U/L (45-117); ANION GAP 9 MMOL/L (8-16); BILIRUBIN,TOTAL 0.7 mg/dL (0.2-1); BLOOD UREA NITROGEN 13 mg/dL (7-18); CALCIUM 9.1 mg/dL (8.5-10.1); CHLORIDE 98 mmol/L (98-107); CO2 32 mmol/L (21-32); GLUCOSE,RANDOM 154 mg/dL (74-106); POTASSIUM 4.2 mmol/L (3.5-5.1); SGOT/AST 22 U/L (15-37); SGPT/ALT 20 U/L (13-61); SODIUM 139 mmol/L (136-145); TOT PROT 6.8 g/dl (6.4-8.2)
--- NOTE | 2018-02-02 21:52 | PDOC ---
History of Present Illness - General Chief Complaint: Weakness Stated Complaint: WEAKNESS Time Seen by Provider: 02/02/18 19:02 History Source: Patient, Family (daughter) Exam Limitations: No Limitations - History of Present Illness Initial Comments: 02/02/18 21:47 Pt is a 77yo f with PMH of HTN, HLD, DM, diverticulosis, incontinence presenting to ED for nausea and vomiting for 3 months and no bowel movements for the past 10 days. Pt was here yesterday and left AMA because pain was better. Pt returns for vomiting, not tolerating po. Pt says abdominal pain is diffuse, constant, worsened by movements. Pt says last meal was around 2 days ago. She tried drinking coffee this morning but she could not keep it down. Admits to weakness, lightheadedness. Denies fever, chills, chest pain, shortness of breath, urinary symptoms. PMD: Malorie Endo: Jossue PMH: see hpi PSH: cholecystectomy, appendectomy, Meds: see med rec Allergies: valsartan Social: denies Past History - Past Medical History Allergies/Adverse Reactions: Allergies Allergy/AdvReac Type Severity Reaction Status Date / Time valsartan [From Diovan] Allergy Verified 02/02/18 18:23 Home Medications: Ambulatory Orders Aspirin [ASA -] 81 mg PO DAILY 09/09/15 Olmesartan/Hydrochlorothiazide [Benicar Hct 40-12.5MG Tab -] 1 tab PO DAILY Insulin Lispro [Humalog Kwikpen U-100] 100 unit SQ AC #1 insuln.pen 06/10/17 Multivitamins [Multivit ([facility] Formulary)] 1 tab PO DAILY tab 08/19/17 Ondansetron [Zofran Odt -] 4 mg SL TID PRN #9 od.tablet 12/03/17 Divalproex [Depakote -] 250 mg PO BID 02/01/18 Donepezil HCl 10 mg PO DAILY 02/01/18 Metoclopramide HCl 5 mg PO DAILY 02/01/18 Pramipexole Di-HCl [Pramipexole Dihydrochloride] 1 mg PO HS 02/01/18 Rosuvastatin [Crestor -] 10 mg PO AC 02/01/18 Insulin Glargine,Hum.rec.anlog [Barak (nf)] 28 units SQ ACBK 02/02/18 Anemia: No Asthma: No Cancer: No Cardiac Disorders: No CVA: No COPD: No CHF: No DVT: No Dementia: No Diabetes: Yes GI Disorders: Yes (DIVERTICULOSIS,COLONIC POLYPS,HEMORRHOIDS,) Disorders: Yes (UTERINE POLYPS,URINARY INCONTINENCE) HTN: Yes Hypercholesterolemia: Yes Liver Disease: No Seizures: No Thyroid Disease: No - Surgical History Abdominal Surgery: Yes Appendectomy: Yes Cardiac Surgery: No Cholecystectomy: Yes Lung Surgery: No Neurologic Surgery: No Orthopedic Surgery: No - Suicide/Smoking/Psychosocial Hx Smoking Status: No Smoking History: Never smoked Have you smoked in the past 12 months: No Number of Cigarettes Smoked Daily: 0 Hx Alcohol Use: No Drug/Substance Use Hx: No Substance Use Type: None Hx Substance Use Treatment: No *Physical Exam - Vital Signs Last Vital Signs Temp Pulse Resp BP Pulse Ox 97.9 F 87 18 156/90 99 02/02/18 18:23 02/02/18 18:23 02/02/18 18:23 02/02/18 18:23 02/02/18 18:23 - Physical Exam Cardiovascular: positive: Systolic Murmur Vascular Pulses: Carotid (R): 2+, Carotid (L): 2+, Dorsalis-Pedis (R): 2+, Doralis-Pedis (L): 2+ Gastrointestinal/Abdominal: positive: Normal Bowel Sounds, Soft, Tenderness ( diffuse tenderness, greatest in epigastrum). negative: Distended, Guarding, Rebound Extremity: positive: Normal Capillary Refill Integumentary: positive: Normal Color, Dry, Warm ED Treatment Course - LABORATORY CBC & Chemistry Diagram: 02/02/18 20:23 02/02/18 20:23 - ADDITIONAL ORDERS Additional order review: Laboratory Results 02/02/18 02/02/18 20:23 20:23 Sodium 139 Potassium 4.2 Chloride 98 Carbon Dioxide 32 Anion Gap 9 BUN 13 Creatinine 1.0 Creat Clearance w eGFR 54.05 Random Glucose 154 H Lactic Acid 1.3 Calcium 9.1 Total Bilirubin 0.7 AST 22 ALT 20 Alkaline Phosphatase 100 Troponin I 0.05 Total Protein 6.8 Albumin 3.2 L 02/02/18 20:23 RBC 4.57 MCV 81.1 MCHC 33.6 RDW 14.4 MPV 9.2 Neutrophils % 70.1 Lymphocytes % 19.6 Monocytes % 9.3 Eosinophils % 0.6 Basophils % 0.4 - Medications Given in the ED: ED Medications Discontinued Medications Generic Name Dose Route Start Last Admin Trade Name Gabriele PRN Reason Stop Dose Admin Acetaminophen 1,000 mg 02/02/18 19:39 02/02/18 21:14 Ofirmev Injection - IVPB 02/02/18 19:40 1,000 mg ONCE ONE Administration Sodium Chloride 1,000 mls @ 1,000 mls/hr 02/02/18 19:35 02/02/18 21:14 Normal Saline - IV 02/02/18 20:34 1,000 mls/hr ASDIR STA Administration Famotidine/Sodium Chloride 20 mg in 50 mls @ 100 mls/hr 02/02/18 19:39 21:14 Pepcid 20 Mg Premixed Ivpb - IVPB 02/02/18 20:08 100 mls/hr ONCE ONE Administration Ondansetron HCl 4 mg 02/02/18 19:39 02/02/18 21:15 Zofran Injection IVPB 02/02/18 19:40 4 mg ONCE ONE Administration Medical Decision Making - Medical Decision Making 02/02/18 21:57 Pt is a 77yo f with PMH of HTN, HLD, DM, diverticulosis, incontinence presenting to ED for nausea and vomiting for 3 months and no bowel movements for the past 10 days. Vitals: PE: DDx: Pt had CT scan done yesterday showing: -will defer CT at this time Troponin yesterday was 0.09. Is 0.05 today, downtrending *DC/Admit/Observation/Transfer - Referrals Referrals: Ro Espana MD [Primary Care Provider] - - Patient Instructions - Post Discharge Activity
[2018-02-03] MEDS ORDERED: DEXTROSE 5%-0.45% SALINE 1,000 ML IV SCH ×2 (00:45→06:30)
[2018-02-03] MEDS ORDERED: ROSUVASTATIN CA 10 MG TABLET (FP) PO SCH (01:00)
[2018-02-03 01:34] LABS: PLATELET COUNT 539 K/MM3 (134-434); PLATELET ESTIMATE INCREASED
--- NOTE | 2018-02-03 02:52 | HP ---
Admitting History and Physical - Primary Care Physician PCP: Ro Espana - Admission Chief Complaint: Nausea/vomiting, constipation x 10 days History of Present Illness: 77 year old female with a PMH significant for HTN, HLD, DM, Parkinson's Disease , Dementia, and diverticulosis presented to the ED today after 1 month of nausea vomiting and 10 days without a bowel movement. Patient was at [facility] ED yesterday for the same reason, but left AMA whne she felt her GI discomfort had improved. She says when she eats food she quickly throws it up and it appears hardly digested. She had not passed flatus for many days but reports she has finally passed a small amount. She has never experienced any similar episodes to this. She feels she has lost a lot of weight over the past month. She feels weak and unsteady on her feet. Denies fever, chills, SOB, chest pain, numbness and tingling, no syncope, no bloody vomit or hematuria. Upon admission to the ED, afebrile, BP elevated at 156/90. Labs notable for troponin 0.09 (yesterday) -> 0.05. EKG unremarkable for acute ischimec event. Abdominal CT from yesterday showed fecal matter in ascending colon suggestive of constipation. In the ED she was given, Pepcid, Zofran, IV apap which she reports relieved her discomfort. 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 Cardiovascular: Yes: HTN, Hyperlipdemia Gastrointestinal: Yes: Diverticulosis Musculoskeletal: Yes: Osteoarthritis Endocrine: Yes: Diabetes Mellitus - Past Surgical History Past Surgical History: Yes: Appendectomy, Cholecystectomy, - Smoking History Smoking history: Never smoked Have you smoked in the past 12 months: No Aproximately how many cigarettes per day: 0 - Alcohol/Substance Use Hx Alcohol Use: No Home Medications - Allergies Allergies/Adverse Reactions: Allergies Allergy/AdvReac Type Severity Reaction Status Date / Time valsartan [From Thaddeusvan] Allergy Verified 02/02/18 18:23 - Home Medications Home Medications: Ambulatory Orders Aspirin [ASA -] 81 mg PO DAILY 09/09/15 Olmesartan/Hydrochlorothiazide [Benicar Hct 40-12.5MG Tab -] 1 tab PO DAILY Insulin Lispro [Humalog Kwikpen U-100] 100 unit SQ AC #1 insuln.pen 06/10/17 Multivitamins [Multivit ([facility] Formulary)] 1 tab PO DAILY tab 08/19/17 Ondansetron [Zofran Odt -] 4 mg SL TID PRN #9 od.tablet 12/03/17 Divalproex [Depakote -] 250 mg PO BID 02/01/18 Donepezil HCl 10 mg PO DAILY 02/01/18 Metoclopramide HCl 5 mg PO DAILY 02/01/18 Pramipexole Di-HCl [Pramipexole Dihydrochloride] 1 mg PO HS 02/01/18 Rosuvastatin [Crestor -] 10 mg PO AC 02/01/18 Insulin Glargine,Hum.rec.anlog [Lantus (nf)] 28 units SQ ACBK 02/02/18 Review of Systems - Review of Systems Constitutional: reports: Unintentional Wgt. Loss HENT: reports: No Symptoms Neck: reports: No Symptoms Cardiovascular: reports: No Symptoms Respiratory: reports: No Symptoms Gastrointestinal: reports: Abdominal Pain, Constipation, Nausea, Vomiting Genitourinary: reports: Frequency, Urgency Breasts: reports: No Symptoms Reported Musculoskeletal: reports: No Symptoms Integumentary: reports: No Symptoms Neurological: reports: Dizziness, Unsteady Gait, Weakness Endocrine: reports: Increased Thirst Physical Examination Vital Signs: Vital Signs Temperature 98.2 F 02/03/18 01:42 Pulse Rate 55 L 02/03/18 01:42 Respiratory Rate 18 02/03/18 01:42 Blood Pressure 156/91 02/03/18 01:42 O2 Sat by Pulse Oximetry (%) 99 02/03/18 01:42 Constitutional: Yes: Well Nourished, No Distress, Calm Eyes: Yes: WNL, Conjunctiva Clear, EOM Intact, Cataracts, PERRL HENT: Yes: Atraumatic, Normocephalic Neck: Yes: WNL, Supple, Trachea Midline Cardiovascular: Yes: Regular Rate and Rhythm, Murmur Respiratory: Yes: WNL, Regular, CTA Bilaterally Gastrointestinal: Yes: Normal Bowel Sounds, Soft (Multiple healed surgical scars , most notably a large square patch inferior to the umbilicus from sking graft procedure.) ...Rectal Exam: Yes: Deferred Renal/: Yes: WNL Breast(s): Yes: WNL Musculoskeletal: Yes: WNL Extremities: Yes: WNL Edema: No Peripheral Pulses WNL: Yes Integumentary: Yes: WNL Neurological: Yes: WNL, Alert, Oriented ...Motor Strength: WNL Psychiatric: Yes: WNL, Alert, Oriented Labs: CBC, BMP 02/02/18 20:23 02/02/18 20:23 Imaging - Results Chest X-ray: Report Reviewed (No acute chest process) X-ray: Report Reviewed Cat Scan: Report Reviewed (02/01/18: Moderate amount of fecal residue in the ascending colon suggestive of constipation. Multiple diverticula mainly in the sigmoid colon with wall thickening, likely chronic without gross evidence of acute diverticulitis. No CT evidence of an acute process in the abdomen and pelvis.) EKG: Report Reviewed (Sinus Rhythm, Normal Rate (78), Normal Intervals (qtc 444 , LVH, qrs 116), No acute ischemic changes (downsloping ST segment I/AVL, septal Q waves,) Compared to previous ECG there are: No significant change (c/w 12/03/17)) Assessment/Plan 77 year old female with a PMH significant for HTN, HLD, DM, Parkinson's Disease , Dementia, and diverticulosis presented to the ED today after 1 month of nausea vomiting and 10 days without a bowel movement. CT showed impacted fecal matter. Patient admitted for further GI work up. Nausea/Vomiting/Constipation - Impacted fecal matter vs SBO - CT shows fecal matter - Hx of multiple abdominal surgeries - Ondansetron 4 mg SL TID PRN - Metoclopramide HCl 5 mg PO DAILY - GI consult ordered - NPO until cleared by GI Elevated Troponin - Yesterday 0.09, today 0.05 - Decreasing - Trend troponins HTN - Olmesartan/Hydrochlorothiazide 40-12.5 mg PO DAILY HLD - Rosuvastatin 10 mg PO AC DM - Hold home Lispro Kwikpen, resume upon d/c - Lantus 28 units SQ ACBK - SS with Novolog - Monitor BS Parkinson's Disease - Pramipexole 1 mg PO HS Dementia - Donepezil HCl 10 mg PO DAILY Supplement - Multivitamin 1 tab PO DAILY Divalproex 250 mg PO BID Aspirin 81 mg PO DAILY FEN - D5 /2 NS @100cc/hr - Electrolytes replete as indicated - NPO until cleared by GI Prophylaxis - DVT: Heparin SQ - GI: Protonix 40 mg qday Dispo: pt currently requires further inpatient care. FULL CODE Visit type - Emergency Visit Emergency Visit: Yes ED Registration Date: 02/02/18 Care time: The patient presented to the Emergency Department on the above date and was hospitalized for further evaluation of their emergent condition. - New Patient This patient is new to me today: Yes Date on this admission: 02/03/18 - Critical Care Critical Care patient: No
--- NOTE | 2018-02-03 04:35 | HOSP ---
Subjective - Review of Symptoms Events since last encounter: Hospitalist Encounter Notified by RN that the patient reports not feeling right and 2nd Troponin 0.07 Subjective: Arrived to bedside, patient is alert, awake and oriented. Patient reports feeling abdominal discomfort and rectal pain. Patient denies chest pain, palpitations, SOB. PE performed see EMR Gastrointestinal: Yes: Other (rectal pain abdominal discomfort) Physical Examination Vital Signs: Vital Signs Temperature 98.1 F 02/03/18 04:08 Pulse Rate 76 02/03/18 04:08 Respiratory Rate 18 02/03/18 04:08 Blood Pressure 200/75 H 02/03/18 04:08 O2 Sat by Pulse Oximetry (%) 99 02/03/18 01:42 Constitutional: Yes: Anxious, Mild Distress Eyes: Yes: WNL, Conjunctiva Clear, EOM Intact, PERRL HENT: Yes: WNL, Atraumatic, Normocephalic Neck: Yes: WNL, Supple, Trachea Midline Cardiovascular: Yes: WNL, Regular Rate and Rhythm, S1, S2 Respiratory: Yes: WNL, Regular, CTA Bilaterally Gastrointestinal: Yes: Tenderness (lower abdomen) ...Rectal Exam: Yes: Sphincter Tone Normal Renal/: Yes: WNL Breast(s): Yes: WNL Musculoskeletal: Yes: WNL Extremities: Yes: WNL Edema: No Peripheral Pulses WNL: Yes Neurological: Yes: WNL, Alert, Oriented ...Motor Strength: WNL Psychiatric: Yes: WNL, Alert, Oriented Labs: CBC, BMP 02/02/18 20:23 02/02/18 20:23 Intake & Output 01/31/18 02/01/18 02/02/18 02/03/18 23:59 23:59 23:59 23:59 Intake Total 30 Balance 30 Weight 54.431 kg Current Medications Generic Name Dose Route Start Last Admin Trade Name Freq PRN Reason Stop Dose Admin Aspirin 81 mg 02/03/18 10:00 Asa - PO DAILY JOYCE Divalproex Sodium 250 mg 02/03/18 10:00 Depakote - PO BID JOYCE Donepezil HCl 10 mg 02/03/18 22:00 Aricept - PO HS JOYCE Heparin Sodium (Porcine) 5,000 unit 02/03/18 06:00 02/03/18 06:26 Heparin - SQ Not Given TID JOYCE Famotidine/Sodium Chloride 20 mg in 50 mls @ 100 mls/hr 02/03/18 10:00 Pepcid 20 Mg Premixed Ivpb - IVPB BID [facility] Dextrose/Sodium Chloride 1,000 mls @ 42 mls/hr 02/03/18 06:30 D5-1/2ns - IV ASDIR JOYCE Insulin Aspart 1 vial 02/03/18 07:00 02/03/18 06:41 Novolog Vial Sliding Scale - SQ Not Given TIDAC [facility] Protocol Insulin Detemir 28 units 02/03/18 07:00 02/03/18 06:41 Levemir Vial SQ Not Given ACBK [facility] Metoclopramide HCl 5 mg 02/03/18 08:00 Reglan - PO DAILY@0800 [facility] Multivitamins/Minerals/Vitamin C 1 tab 02/03/18 10:00 Tab-A-Vit - PO DAILY [facility] Non-Formulary Medication 1 tab 02/03/18 10:00 Olmesartan/Hydrochlorothiazide [Benicar Hct 40-12.5mg Tab -] PO DAILY [facility] Ondansetron HCl 4 mg 02/03/18 00:49 Zofran Odt - SL TID PRN NAUSEA AND/OR VOMITING Pramipexole Dihydrochloride 1 mg 02/03/18 22:00 Mirapex - PO HS [facility] Rosuvastatin Calcium 10 mg 02/03/18 01:00 Crestor - PO AC [facility] Hospitalist Encounter Assessment: 77 year old female with a PMH significant for HTN, HLD, DM, Parkinson's Disease , Dementia, and diverticulosis presented to the ED today after 1 month of nausea vomiting and 10 days without a bowel movement. CT showed impacted fecal matter. Patient admitted for further GI work up. Plan: EKG Lisinopril 10mg x1 Repeat Trop in am Outcome: EKG- NSR with lVH with QRS widening and repolarization abnormality no change compared to prior study BP remains elevated- 198/87 Lisinopril 10mg ordered x1 BP rechecked by the RN- 189/79
[2018-02-03] MEDS ORDERED: LISINOPRIL 10 MG TABLET (FP) PO ONE ×2 (05:16→18:33)
[2018-02-03] MEDS: HEPARIN NA (PORCINE) 5,000 UNITS/ML 1ML VIAL SQ SCH ×3 (06:26→22:27)
[2018-02-03] MEDS: INSULIN SLIDING SCALE (NOVOLOG) 1 VIAL SQ SCH ×3 (06:41→16:55)
[2018-02-03] MEDS: INSULIN (LEVEMIR) 100 UNITS/ML UNITS SQ SCH (06:41)
[2018-02-03] MEDS: METOCLOPRAMIDE HCL 10 MG TABLET (FP) PO SCH (09:24)
[2018-02-03] MEDS: FAMOTIDINE 20 MG/50 ML IVPB 20 MG/50 ML MG IVPB SCH ×2 (09:24→22:28)
--- NOTE | 2018-02-03 09:24 | CON.GI ---
Consult Consult Specialty:: Gastroenterology - History of Present Illness History of Present Illness: 77 y/o female with PMH of bleeding divertiuclum was admitted because of abdominal and severe constipation. She underwent 2 colonoscopy. In [address] Yemi Valencia and last July with Dr Robertson which revealed severe diverticulosis throughout the colon. She did not have a bowel movement overnight and continued to have abdominal pain. 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 Cardio/Vascular: Yes: HTN, Hyperlipdemia Gastrointestinal: Yes: Diverticulosis Musculoskeletal: Yes: Osteoarthritis Endocrine: Yes: Diabetes Mellitus - Past Surgical History Past Surgical History: Yes: Appendectomy, Cholecystectomy, - Alcohol/Substance Use Hx Alcohol Use: No - Smoking History Smoking history: Never smoked Have you smoked in the past 12 months: No Aproximately how many cigarettes per day: 0 Home Medications - Allergies Allergies/Adverse Reactions: Allergies Allergy/AdvReac Type Severity Reaction Status Date / Time valsartan [From Diovan] Allergy Verified 02/02/18 18:23 - Home Medications Home Medications: Ambulatory Orders Aspirin [ASA -] 81 mg PO DAILY 09/09/15 Olmesartan/Hydrochlorothiazide [Benicar Hct 40-12.5MG Tab -] 1 tab PO DAILY Insulin Lispro [Humalog Kwikpen U-100] 100 unit SQ AC #1 insuln.pen 06/10/17 Multivitamins [Multivit ([facility] Formulary)] 1 tab PO DAILY tab 08/19/17 Ondansetron [Zofran Odt -] 4 mg SL TID PRN #9 od.tablet 12/03/17 Divalproex [Depakote -] 250 mg PO BID 02/01/18 Donepezil HCl 10 mg PO DAILY 02/01/18 Metoclopramide HCl 5 mg PO DAILY 02/01/18 Pramipexole Di-HCl [Pramipexole Dihydrochloride] 1 mg PO HS 02/01/18 Rosuvastatin [Crestor -] 10 mg PO AC 02/01/18 Insulin Glargine,Hum.rec.anlog [Lantus (nf)] 28 units SQ ACBK 02/02/18 Review of Systems - Review of Systems Gastrointestinal: reports: Abdominal Pain, Constipation. denies: Diarrhea, Dysphagia, Indigestion, Melena, Nausea, Rectal Bleeding Physical Exam-GI Vital Signs: Vital Signs Temperature 98.1 F 02/03/18 04:08 Pulse Rate 74 02/03/18 06:31 Respiratory Rate 18 02/03/18 06:31 Blood Pressure 189/79 H 02/03/18 06:31 O2 Sat by Pulse Oximetry (%) 99 02/03/18 03:35 Constitutional: Yes: Well Nourished Eyes: Yes: Conjunctiva Clear HENT: Yes: Atraumatic Neck: Yes: Supple Cardiovascular: Yes: Regular Rate and Rhythm Respiratory: Yes: CTA Bilaterally ...Palpate: Yes: Soft, Tenderness (--diffuse). No: Firm/Rigid, Hepatomegaly, Mass, Splenomegaly, Tenderness, Epigastium Labs: CBC, BMP 02/02/18 20:23 02/02/18 20:23 Hepatic Panel Total Bilirubin 0.7 mg/dL (0.2-1) 02/02/18 20:23 AST 22 U/L (15-37) 02/02/18 20:23 ALT 20 U/L (13-61) 02/02/18 20:23 Alkaline Phosphatase 100 U/L (45-117) 02/02/18 20:23 Albumin 3.2 g/dl (3.4-5.0) L 02/02/18 20:23 Problem List - Problems (1) Constipation Assessment/Plan: R>citrate of Magnesia one bottle will need Golytely FUA today Code(s): K59.00 - CONSTIPATION, UNSPECIFIED (2) Diverticulosis Assessment/Plan: severe R> continue laxatives as an outpatient Code(s): K57.90 - DVRTCLOS OF INTEST, PART UNSP, W/O PERF OR ABSCESS W/O BLEED
[2018-02-03] MEDS: MULTIVITAMINS (DAILY MVI) TABLET (FP) PO SCH (09:25)
[2018-02-03] MEDS: ASPIRIN 81 MG CHEWABLE TABLETS PO SCH (09:25)
[2018-02-03] MEDS ORDERED: PT OWN MED DRAWER 7, Y5N ONE ×3 (09:28→22:01)
[2018-02-03] MEDS ORDERED: PATIENT'S OWN MEDICATION (NON-FORMULARY) (Olmesartan/Hydrochlorothiazide [Benicar Hct 40-1 PO SCH (10:00)
[2018-02-03] MEDS: DIVALPROEX SODIUM 250 MG TABLET E.C. PO SCH ×2 (11:00→22:26)
--- NOTE | 2018-02-03 11:54 | EKG ---
Test Reason : Blood Pressure : / mmHG Vent. Rate : 072 BPM Atrial Rate : 072 BPM P-R Int : 162 ms QRS Dur : 122 ms QT Int : 340 ms P-R-T Axes : 034 -51 092 degrees QTc Int : 372 ms NORMAL SINUS RHYTHM LEFT ANTERIOR FASCICULAR BLOCK LEFT VENTRICULAR HYPERTROPHY WITH QRS WIDENING AND REPOLARIZATION ABNORMALITY ABNORMAL ECG WHEN COMPARED WITH ECG OF 01-FEB-2018 12:23, QT HAS SHORTENED Confirmed by SOFIE MALIN, JAZMYN ([id number]) on 02/03/2018 11:53:47 AM Referred By: Confirmed By:JAZMYN CARRIZALES MD
[2018-02-03] MEDS ORDERED: DEXTROSE 50%-WATER - 25 GM/50 ML VIAL IVPUSH ONE (12:21)
[2018-02-03] MEDS ORDERED: DEXTROSE 50%-WATER 25 GM/50 ML DISP.SYRIN ONE (12:31)
--- NOTE | 2018-02-03 12:31 | PN ---
Progress Note, Physician Chief Complaint: patient seen and examined got fleet enema in the morning had small BM FUA done noted for fecal impaction BGM 53 given 1/2 amp dextrose inc rate of dextrose ivf - Current Medication List Current Medications: Active Medications Aspirin (Asa -) 81 mg PO DAILY ON LICENSE OF [facility] Last Admin: 02/03/18 09:25 Dose: 81 mg Divalproex Sodium (Depakote -) 250 mg PO BID ON LICENSE OF [facility] Last Admin: 02/03/18 11:00 Dose: 250 mg Donepezil HCl (Aricept -) 10 mg PO HS ON LICENSE OF [facility] Heparin Sodium (Porcine) (Heparin -) 5,000 unit SQ TID ON LICENSE OF [facility] Last Admin: 02/03/18 06:26 Dose: Not Given Famotidine/Sodium Chloride (Pepcid 20 Mg Premixed Ivpb -) 20 mg in 50 mls @ 100 mls/hr IVPB BID ON LICENSE OF [facility] Last Admin: 02/03/18 09:24 Dose: 100 mls/hr Dextrose/Sodium Chloride (D5-1/2ns -) 1,000 mls @ 60 mls/hr IV ASDIR ON LICENSE OF [facility] Insulin Aspart (Novolog Vial Sliding Scale -) 1 vial SQ TIDAC ON LICENSE OF [facility]; Protocol Last Admin: 02/03/18 11:56 Dose: Not Given Insulin Detemir (Levemir Vial) 28 units SQ ACBK ON LICENSE OF [facility] Last Admin: 02/03/18 06:41 Dose: Not Given Metoclopramide HCl (Reglan -) 5 mg PO DAILY@0800 ON [facility] Last Admin: 02/03/18 09:24 Dose: 5 mg Multivitamins/Minerals/Vitamin C (Tab-A-Vit -) 1 tab PO DAILY ON LICENSE OF [facility] Last Admin: 02/03/18 09:25 Dose: 1 tab Non-Formulary Medication (Olmesartan/Hydrochlorothiazide [Benicar Hct 40-12.5mg Tab -]) 1 tab PO DAILY ON LICENSE OF [facility] Ondansetron HCl (Zofran Odt -) 4 mg SL TID PRN PRN Reason: NAUSEA AND/OR VOMITING Pneumococcal 13-Valent Conj Vacc (Prevnar 13 Syringe -) 0.5 ml IM .ONCE ONE Stop: 02/03/18 13:01 Pramipexole Dihydrochloride (Mirapex -) 1 mg PO [facility] Rosuvastatin Calcium (Crestor -) 10 mg PO [facility] - Objective Vital Signs: Vital Signs Temperature 97.4 F L 02/03/18 10:00 Pulse Rate 74 02/03/18 10:00 Respiratory Rate 20 02/03/18 10:00 Blood Pressure 163/85 02/03/18 10:00 O2 Sat by Pulse Oximetry (%) 99 02/03/18 03:35 Constitutional: Yes: Calm Cardiovascular: Yes: Regular Rate and Rhythm, S1, S2 Respiratory: Yes: CTA Bilaterally Gastrointestinal: Yes: Normal Bowel Sounds, Soft Edema: No Labs: CBC, BMP 02/02/18 20:23 02/02/18 20:23 Problem List - Problems (1) Constipation Assessment/Plan: seen by GI got fleet enema will order golytely FUA done -fecal impaction Code(s): K59.00 - CONSTIPATION, UNSPECIFIED (2) Diabetes Assessment/Plan: dc levemir low bgm NPO ivf with dextrose Code(s): E11.9 - TYPE 2 DIABETES MELLITUS WITHOUT COMPLICATIONS Qualifiers: Diabetes mellitus type: type 2 (3) HTN (hypertension) Assessment/Plan: dont have benicar as it is NF will changed to lisinopril Code(s): I10 - ESSENTIAL (PRIMARY) HYPERTENSION (4) Elevated troponin Assessment/Plan: cardiology echo repeat troponin level ordered Code(s): R74.8 - ABNORMAL LEVELS OF OTHER SERUM ENZYMES
[2018-02-03] MEDS: DEXTROSE 5%-0.45% SALINE 1,000 ML IV SCH (12:35)
[2018-02-03] MEDS ORDERED: PNEUMOC 13-VAL CONJ-DIP CRM/PF 0.5 ML DISP.SYRIN IM ONE (13:00)
[2018-02-03 13:34] LABS: BASO % 0.5 % (0-2.0); EOS % 1.7 % (0-4.5); LYMPH % 24.7 % (8-40); MCH 27.3 pg (25.7-33.7); MCHC 33.4 g/dl (32.0-36.0); MEAN CELL VOLUME 81.7 fl (80-96); MEAN PLT VOLUME 8.2 fl (7.5-11.1); MONO % 10.1 % (3.8-10.2); PLATELET COUNT 398 K/MM3 (134-434); RBC 4.77 M/mm3 (3.60-5.2); RDW 14.8 % (11.6-15.6); WHITE BLOOD COUNT 7.9 K/mm3 (4.0-10.0)
--- NOTE | 2018-02-03 14:08 | CON.CARD ---
Consult Consult Specialty:: Cardiology Referred by:: minerva Heck Reason for Consultation:: Troponin - History of Present Illness Chief Complaint: abdominal pain History of Present Illness: 77 year old female with a pmhx of htn, hld, dm, parkinson's dementia, and diverticulosis presenting with a month of lower abdominal pain and nausea/ vomiting. Also constipation. She denies any chest pain, sob, or palpitations. No pnd or orthopnea. No near syncope. Says her blood pressure is always elevated. Troponin of 0.09 - 0.05 - 0.07. Unclear why troponin was sent. CT abd showed fecal matter in ascending colon suggestive of constipation. EKG sinus rhythm, lafb, lvh, no acute ischemic changes. 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, Peripheral Neuropathy, Parkinson's Cardio/Vascular: Yes: HTN, Hyperlipdemia Gastrointestinal: Yes: Diverticulosis Musculoskeletal: Yes: Osteoarthritis Endocrine: Yes: Diabetes Mellitus - Past Surgical History Past Surgical History: Yes: Appendectomy, Cholecystectomy, - Alcohol/Substance Use Hx Alcohol Use: No - Smoking History Smoking history: Never smoked Have you smoked in the past 12 months: No Aproximately how many cigarettes per day: 0 Home Medications - Allergies Allergies/Adverse Reactions: Allergies Allergy/AdvReac Type Severity Reaction Status Date / Time valsartan [From Chloé] Allergy Verified 02/02/18 18:23 - Home Medications Home Medications: Ambulatory Orders Aspirin [ASA -] 81 mg PO DAILY 09/09/15 Olmesartan/Hydrochlorothiazide [Benicar Hct 40-12.5MG Tab -] 1 tab PO DAILY Insulin Lispro [Humalog Kwikpen U-100] 100 unit SQ AC #1 insuln.pen 06/10/17 Multivitamins [Multivit ([facility] Formul[facility])] 1 tab PO DAILY tab 08/19/17 Ondansetron [Zofran Odt -] 4 mg SL TID PRN #9 od.tablet 12/03/17 Divalproex [Depakote -] 250 mg PO BID 02/01/18 Donepezil HCl 10 mg PO DAILY 02/01/18 Metoclopramide HCl 5 mg PO DAILY 02/01/18 Pramipexole Di-HCl [Pramipexole Dihydrochloride] 1 mg PO HS 02/01/18 Rosuvastatin [Crestor -] 10 mg PO AC 02/01/18 Insulin Glargine,Hum.rec.anlog [Lantus (nf)] 28 units SQ ACBK 02/02/18 Vital Signs: Vital Signs Temperature 97.4 F L 02/03/18 10:00 Pulse Rate 74 02/03/18 10:00 Respiratory Rate 20 02/03/18 10:00 Blood Pressure 163/85 02/03/18 10:00 O2 Sat by Pulse Oximetry (%) 99 02/03/18 03:35 Constitutional: Yes: No Distress HENT: Yes: WNL Neck: Yes: WNL Respiratory: Yes: CTA Bilaterally Gastrointestinal: Yes: Tenderness (mild lower abdominal tenderness) Cardiovascular: Yes: Regular Rate and Rhythm JVD: No Carotid Bruit: No PMI: Non-Displaced Heart Sounds: Yes: S1, S2 Murmur: No: Systolic Murmur Edema: No - Other Data Labs, Other Data: CBC, BMP 02/03/18 13:20 Troponin, BNP 02/02/18 02/03/18 20:23 02:39 Troponin I 0.05 0.07 H Troponin, BNP 02/02/18 02/03/18 20:23 02:39 Troponin I 0.05 0.07 H Imaging - Results EKG: Image Reviewed Problem List - Problems (1) Elevated troponin Code(s): R74.8 - ABNORMAL LEVELS OF OTHER SERUM ENZYMES Assessment/Plan 77 year old female with a pmhx of htn, hld, dm, parkinson's dementia, and diverticulosis presenting with a month of lower abdominal pain and nausea/ vomiting. Also constipation. She denies any chest pain, sob, or palpitations. No pnd or orthopnea. No near syncope. Says her blood pressure is always elevated. Troponin of 0.09 - 0.05 - 0.07. Unclear why troponin was sent. CT abd showed fecal matter in ascending colon suggestive of constipation. EKG sinus rhythm, lafb, lvh, no acute ischemic changes. 1) Troponin 0.07 -unclear why patient had troponin levels sent. No ck. Patient here for persistent lower gi complaints and constipation. Denies any cardiac symptoms. No ischemic ecg changes -Medication management at this time from cardiac perspective. Aspirin 81mg daily on rosuvastatin Would aim for better bp control. Chart reports home med of olmesartan/hctz. Got lisinopril last night. If list is accurate consider restarting arb and than adding additional meds as needed. Will sign off. No further cardiac work up at this time.
[2018-02-03 14:09] LABS: ALBUMIN 3.1 g/dl (3.4-5.0); ALK PHOS 99 U/L (45-117); ANION GAP 6 MMOL/L (8-16); BLOOD UREA NITROGEN 9 mg/dL (7-18); CHLORIDE 99 mmol/L (98-107); CO2 32 mmol/L (21-32); CREATININE 0.9 mg/dL (0.55-1.3); GLUCOSE,RANDOM 164 mg/dL (74-106); POTASSIUM 3.7 mmol/L (3.5-5.1); SGOT/AST 25 U/L (15-37); SGPT/ALT 21 U/L (13-61); SODIUM 137 mmol/L (136-145); TOT PROT 6.7 g/dl (6.4-8.2)
--- NOTE | 2018-02-03 15:04 | ECHO ---
Name: GIA NEWMAN Exam:Adult Echocardiogram Study Date: 02/03/2018 01:47 PM Age: 77 yrs Reason For Study: LOOK FOR WALL MOTION ABNORMALITY Height: 61 in Weight: 122 lb BSA: 1.5 m2 MMode/2D Measurements & Calculations IVSd: 0.71 cm Ao root diam: 2.9 cm LVIDd: 4.1 cm LA dimension: 3.5 cm LVIDs: 3.0 cm LVPWd: 0.75 cm EDV(Teich): 75.3 ml ESV(Teich): 36.3 ml Doppler Measurements & Calculations MV E max madi: 39.5 cm/sec Med Peak E' Madi: 2.0 cm/sec MV A max madi: 64.2 cm/sec Med E/e': 19.3 MV E/A: 0.62 Lat Peak E' Madi: 6.1 cm/sec Lat E/e': 6.4 Procedure A complete two-dimensional transthoracic echocardiogram was performed (2D, M-mode, Doppler and color flow Doppler). Left Ventricle The left ventricular size, thickness and function are normal. The left ventricular ejection fraction is normal. Ejection Fraction = 60-65%. The left ventricular wall motion is normal. Right Ventricle The right ventricle is normal in size and function. Atria Normal left and right atrial size and function. Mitral Valve There is no mitral regurgitation noted. Tricuspid Valve There is trace tricuspid regurgitation. There was insufficient TR detected to calculate RV systolic p ressure. Aortic Valve No hemodynamically significant valvular aortic stenosis. No aortic regurgitation is present. Pulmonic Valve There is no pulmonic valvular regurgitation. Great Vessels The aortic root is normal size. Pericardium/Pleura There is no pericardial effusion. Interpretation Summary The left ventricular size, thickness and function are normal The right ventricle is normal in size and function. There is trace tricuspid regurgitation. MD Dionicio Lopez 02/03/2018 03:04 PM
[2018-02-03] MEDS ORDERED: VALSARTAN 160 MG TABLET (UD) PO ONE (17:34)
[2018-02-03] MEDS: ONDANSETRON *ODT* 4 MG TABLET SL PRN (20:22)
[2018-02-03] MEDS ORDERED: DONEPEZIL HCL 10 MG TABLET (FP) PO SCH (22:00)
[2018-02-03] MEDS: ROSUVASTATIN CA 10 MG TABLET (FP) PO SCH (22:26)
[2018-02-03] MEDS: PRAMIPEXOLE DIHYDROCHLORIDE 1 MG TABLET PO SCH (22:27)
[2018-02-03] MEDS ORDERED: ACETAMINOPHEN 1000 MG/100 ML VIAL (NON FORMULARY) IVPB ONE (23:47)
[2018-02-04] MEDS: DEXTROSE 5%-0.45% SALINE 1,000 ML IV SCH ×2 (01:30→17:57)
[2018-02-04] MEDS: ONDANSETRON *ODT* 4 MG TABLET SL PRN ×2 (03:56→12:33)
[2018-02-04] MEDS ORDERED: MORPHINE SULFATE 2 MG/ML VIAL IVPUSH ONE (05:05)
[2018-02-04] MEDS: HEPARIN NA (PORCINE) 5,000 UNITS/ML 1ML VIAL SQ SCH ×3 (06:48→22:15)
[2018-02-04] MEDS: INSULIN (LEVEMIR) 100 UNITS/ML UNITS SQ SCH (06:49)
[2018-02-04] MEDS: INSULIN SLIDING SCALE (NOVOLOG) 1 VIAL SQ SCH ×3 (06:50→16:49)
[2018-02-04 07:43] LABS: HEMATOCRIT 35.5 % (32.4-45.2); HEMOGLOBIN 11.6 GM/dL (10.7-15.3); MCH 26.3 pg (25.7-33.7); MCHC 32.5 g/dl (32.0-36.0); MEAN CELL VOLUME 80.7 fl (80-96); MEAN PLT VOLUME 8.8 fl (7.5-11.1); PLATELET COUNT 333 K/MM3 (134-434); RBC 4.41 M/mm3 (3.60-5.2); RDW 14.4 % (11.6-15.6); WHITE BLOOD COUNT 14.8 K/mm3 (4.0-10.0)
[2018-02-04 07:52] LABS: ANION GAP 8 MMOL/L (8-16); BLOOD UREA NITROGEN 10 mg/dL (7-18); CALCIUM 8.4 mg/dL (8.5-10.1); CHLORIDE 102 mmol/L (98-107); CO2 27 mmol/L (21-32); CREATININE 0.8 mg/dL (0.55-1.3); GLUCOSE,RANDOM 242 mg/dL (74-106); MAGNESIUM 2.3 mg/dL (1.8-2.4); POTASSIUM 3.6 mmol/L (3.5-5.1); SODIUM 137 mmol/L (136-145)
[2018-02-04] MEDS: METOCLOPRAMIDE HCL 10 MG TABLET (FP) PO SCH (08:26)
[2018-02-04] MEDS ORDERED: PT OWN MED DRAWER 7, Y5N ONE ×3 (09:42→22:03)
[2018-02-04] MEDS: LOSARTAN POTASSIUM 50 MG TABLET (FP) PO SCH (09:44)
[2018-02-04] MEDS: amLODIPine BESYLATE 5 MG TABLET (FP) PO SCH (09:45)
[2018-02-04] MEDS: DIVALPROEX SODIUM 250 MG TABLET E.C. PO SCH ×2 (09:45→22:14)
[2018-02-04] MEDS: FAMOTIDINE 20 MG/50 ML IVPB 20 MG/50 ML MG IVPB SCH ×2 (09:45→22:13)
[2018-02-04] MEDS: MULTIVITAMINS (DAILY MVI) TABLET (FP) PO SCH (09:45)
[2018-02-04] MEDS: ASPIRIN 81 MG CHEWABLE TABLETS PO SCH (09:45)
--- NOTE | 2018-02-04 09:49 | PN ---
Progress Note, Physician - Current Medication List Current Medications: Active Medications Amlodipine Besylate (Norvasc -) 5 mg PO DAILY [facility] Aspirin (Asa -) 81 mg PO DAILY [facility] Last Admin: 02/03/18 09:25 Dose: 81 mg Divalproex Sodium (Depakote -) 250 mg PO BID [facility] Last Admin: 02/03/18 22:26 Dose: 250 mg Heparin Sodium (Porcine) (Heparin -) 5,000 unit SQ TID [facility] Last Admin: 02/04/18 06:48 Dose: Not Given Famotidine/Sodium Chloride (Pepcid 20 Mg Premixed Ivpb -) 20 mg in 50 mls @ 100 mls/hr IVPB BID [facility] Last Admin: 02/03/18 22:28 Dose: 100 mls/hr Dextrose/Sodium Chloride (D5-1/2ns -) 1,000 mls @ 60 mls/hr IV ASDIR [facility] Last Admin: 02/04/18 01:30 Dose: 60 mls/hr Insulin Aspart (Novolog Vial Sliding Scale -) 1 vial SQ TIDAC [facility]; Protocol Last Admin: 02/04/18 06:50 Dose: 4 units Insulin Detemir (Levemir Vial) 28 units SQ ACBK [facility] Last Admin: 02/04/18 06:49 Dose: Not Given Losartan Potassium (Cozaar -) 100 mg PO DAILY [facility] Metoclopramide HCl (Reglan -) 5 mg PO DAILY@0800 [facility] Last Admin: 02/04/18 08:26 Dose: 5 mg Multivitamins/Minerals/Vitamin C (Tab-A-Vit -) 1 tab PO DAILY [facility] Last Admin: 02/03/18 09:25 Dose: 1 tab Ondansetron HCl (Zofran Odt -) 4 mg SL TID PRN PRN Reason: NAUSEA AND/OR VOMITING Last Admin: 02/04/18 03:56 Dose: 4 mg Pramipexole Dihydrochloride (Mirapex -) 1 mg PO [facility] Last Admin: 02/03/18 22:27 Dose: 1 mg Rosuvastatin Calcium (Crestor -) 10 mg PO HS [facility] Last Admin: 02/03/18 22:26 Dose: 10 mg - Objective Vital Signs: Vital Signs Temperature 98 F 02/04/18 06:00 Pulse Rate 74 02/04/18 06:00 Respiratory Rate 18 02/04/18 06:00 Blood Pressure 161/85 02/04/18 06:00 O2 Sat by Pulse Oximetry (%) 99 02/03/18 21:00 Cardiovascular: Yes: Regular Rate and Rhythm Respiratory: Yes: Regular, CTA Bilaterally Gastrointestinal: Yes: Normal Bowel Sounds, Soft. No: Tenderness Labs: CBC, BMP 02/04/18 06:30 02/04/18 06:30 Assessment/Plan - Problems (1) Constipation Assessment/Plan: seen by GI got fleet enema and sarahi DOZIER done -fecal impaction add miralax Code(s): K59.00 - CONSTIPATION, UNSPECIFIED (2) Diabetes Assessment/Plan: dc levemir low bgm clear liquid and advance endo ivf with dextrose Code(s): E11.9 - TYPE 2 DIABETES MELLITUS WITHOUT COMPLICATIONS Qualifiers: Diabetes mellitus type: type 2 (3) HTN (hypertension) Assessment/Plan: benicar t is NF will changed to losartin Code(s): I10 - ESSENTIAL (PRIMARY) HYPERTENSION (4) Elevated troponin Assessment/Plan: cardiology noted echo repeat troponin level ordered Code(s): R74.8 - ABNORMAL LEVELS OF OTHER SERUM ENZYMES
[2018-02-04] MEDS ORDERED: POLYETHYLENE GLYCOL 3350 119 GM BTL PO SCH (10:00)
[2018-02-04] MEDS ORDERED: MINERAL OIL ENEMA 133 ML ENEMA PR ONE (10:41)
[2018-02-04] MEDS: MAGNESIUM CITRATE 300 ML BOTTLE PO SCH ×2 (11:11→15:56)
--- NOTE | 2018-02-04 13:10 | CON.ID ---
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 Cardio/Vascular: Yes: HTN, Hyperlipdemia Gastrointestinal: Yes: Diverticulosis Musculoskeletal: Yes: Osteoarthritis Endocrine: Yes: Diabetes Mellitus - Past Surgical History Past Surgical History: Yes: Appendectomy, Cholecystectomy, - Alcohol/Substance Use Hx Alcohol Use: No - Smoking History Smoking history: Never smoked Have you smoked in the past 12 months: No Aproximately how many cigarettes per day: 0 - Social History History of Recent Travel: No Home Medications - Allergies Allergies/Adverse Reactions: Allergies Allergy/AdvReac Type Severity Reaction Status Date / Time valsartan [From bContextvan] Allergy Verified 02/02/18 18:23 - Home Medications Home Medications: Ambulatory Orders Aspirin [ASA -] 81 mg PO DAILY 09/09/15 Olmesartan/Hydrochlorothiazide [Benicar Hct 40-12.5MG Tab -] 1 tab PO DAILY Insulin Lispro [Humalog Kwikpen U-100] 100 unit SQ AC #1 insuln.pen 06/10/17 Multivitamins [Multivit ([facility])] 1 tab PO DAILY tab 08/19/17 Ondansetron [Zofran Odt -] 4 mg SL TID PRN #9 od.tablet 12/03/17 Divalproex [Depakote -] 250 mg PO BID 02/01/18 Donepezil HCl 10 mg PO DAILY 02/01/18 Metoclopramide HCl 5 mg PO DAILY 02/01/18 Pramipexole Di-HCl [Pramipexole Dihydrochloride] 1 mg PO HS 02/01/18 Rosuvastatin [Crestor -] 10 mg PO AC 02/01/18 Insulin Glargine,Hum.rec.anlog [Lantus (nf)] 28 units SQ ACBK 02/02/18 Family Disease History - Family Disease History Family History: Unable to Obtain Review of Systems - Review of Systems Constitutional: reports: Unintentional Wgt. Loss. denies: Chills, Diaphoresis, Fever Eyes: reports: No Symptoms HENT: reports: No Symptoms Neck: reports: No Symptoms Cardiovascular: denies: Chest Pain Respiratory: denies: Cough Gastrointestinal: reports: Abdominal Pain, Constipation, Nausea, Vomiting Physical Exam Vital Signs: Vital Signs Temperature 98.4 F 02/04/18 10:00 Pulse Rate 78 02/04/18 10:00 Respiratory Rate 18 02/04/18 10:00 Blood Pressure 164/97 02/04/18 10:00 O2 Sat by Pulse Oximetry (%) 99 02/03/18 21:00 Constitutional: Yes: Well Nourished, No Distress, Calm Eyes: Yes: Conjunctiva Clear HENT: Yes: Atraumatic, Normocephalic Neck: Yes: Supple Cardiovascular: Yes: Regular Rate and Rhythm Respiratory: Yes: Regular, CTA Bilaterally Gastrointestinal: Yes: Normal Bowel Sounds, Tenderness (throughout to palpation) Edema: No Labs: CBC, BMP 02/04/18 06:30 02/04/18 06:30 Imaging - Results Chest X-ray: Report Reviewed, Image Reviewed X-ray: Report Reviewed (fecal impaction) Cat Scan: Report Reviewed Problem List - Problems (1) Leukocytosis Code(s): D72.829 - ELEVATED WHITE BLOOD CELL COUNT, UNSPECIFIED (2) Constipation Code(s): K59.00 - CONSTIPATION, UNSPECIFIED (3) Abdominal pain Code(s): R10.9 - UNSPECIFIED ABDOMINAL PAIN Qualifiers: Abdominal location: generalized Qualified Code(s): R10.84 - Generalized abdominal pain Assessment/Plan suspect leukocytosis is reactive, no active infectious issues by history or on exam would repeat cbc in am, ?reactive leukocytosis fecal impaction abdominal pain f/u with GI
[2018-02-04] MEDS ORDERED: ACETAMINOPHEN 325 MG TABLET (FP) PO ONE (18:00)
[2018-02-04 18:11] LABS: BASO % 0.4 % (0-2.0); EOS % 0.5 % (0-4.5); HEMATOCRIT 35.6 % (32.4-45.2); HEMOGLOBIN 11.8 GM/dL (10.7-15.3); LYMPH % 7.9 % (8-40); MCH 26.7 pg (25.7-33.7); MCHC 33.1 g/dl (32.0-36.0); MEAN CELL VOLUME 80.7 fl (80-96); MEAN PLT VOLUME 9.1 fl (7.5-11.1); NEUT % 87.2 % (42.8-82.8); PLATELET COUNT 387 K/MM3 (134-434); RBC 4.41 M/mm3 (3.60-5.2); RDW 14.9 % (11.6-15.6); WHITE BLOOD COUNT 11.6 K/mm3 (4.0-10.0)
[2018-02-04] MEDS ORDERED: DEXTROSE 5%-NORMAL SALINE 1,000 ML IV SCH (20:45)
[2018-02-04] MEDS ORDERED: ONDANSETRON 4 MG/2 ML VIAL IVPUSH ONE (21:05)
[2018-02-04] MEDS: PRAMIPEXOLE DIHYDROCHLORIDE 1 MG TABLET PO SCH (22:14)
[2018-02-04] MEDS: ROSUVASTATIN CA 10 MG TABLET (FP) PO SCH (22:14)
[2018-02-05] MEDS: INSULIN (LEVEMIR) 100 UNITS/ML UNITS SQ SCH (06:26)
[2018-02-05] MEDS: HEPARIN NA (PORCINE) 5,000 UNITS/ML 1ML VIAL SQ SCH ×3 (06:26→22:59)
[2018-02-05] MEDS: INSULIN SLIDING SCALE (NOVOLOG) 1 VIAL SQ SCH ×3 (06:27→16:47)
[2018-02-05 07:30] LABS: BASO % 0.3 % (0-2.0); EOS % 1.8 % (0-4.5); HEMATOCRIT 36.3 % (32.4-45.2); HEMOGLOBIN 11.7 GM/dL (10.7-15.3); LYMPH % 16.7 % (8-40); MCH 26.3 pg (25.7-33.7); MCHC 32.2 g/dl (32.0-36.0); MEAN CELL VOLUME 81.8 fl (80-96); MEAN PLT VOLUME 9.4 fl (7.5-11.1); MONO % 8.4 % (3.8-10.2); NEUT % 72.8 % (42.8-82.8); PLATELET COUNT 319 K/MM3 (134-434); RBC 4.44 M/mm3 (3.60-5.2); RDW 14.3 % (11.6-15.6); WHITE BLOOD COUNT 9.6 K/mm3 (4.0-10.0)
[2018-02-05 07:54] LABS: ALBUMIN 2.5 g/dl (3.4-5.0); ALK PHOS 87 U/L (45-117); ANION GAP 8 MMOL/L (8-16); BILIRUBIN,TOTAL 0.6 mg/dL (0.2-1); BLOOD UREA NITROGEN 7 mg/dL (7-18); CHLORIDE 101 mmol/L (98-107); CO2 30 mmol/L (21-32); GLUCOSE,RANDOM 255 mg/dL (74-106); POTASSIUM 4.2 mmol/L (3.5-5.1); SGOT/AST 23 U/L (15-37); SGPT/ALT 19 U/L (13-61); SODIUM 138 mmol/L (136-145); TOT PROT 5.7 g/dl (6.4-8.2)
[2018-02-05] MEDS: METOCLOPRAMIDE HCL 10 MG TABLET (FP) PO SCH (08:02)
[2018-02-05] MEDS ORDERED: PT OWN MED DRAWER 7, Y5N ONE (09:44)
[2018-02-05] MEDS: amLODIPine BESYLATE 5 MG TABLET (FP) PO SCH (09:46)
[2018-02-05] MEDS: FAMOTIDINE 20 MG/50 ML IVPB 20 MG/50 ML MG IVPB SCH ×2 (09:46→22:59)
[2018-02-05] MEDS: MULTIVITAMINS (DAILY MVI) TABLET (FP) PO SCH (09:46)
[2018-02-05] MEDS: LOSARTAN POTASSIUM 50 MG TABLET (FP) PO SCH (09:46)
[2018-02-05] MEDS: DIVALPROEX SODIUM 250 MG TABLET E.C. PO SCH ×2 (09:46→22:59)
[2018-02-05] MEDS: ASPIRIN 81 MG CHEWABLE TABLETS PO SCH (09:48)
--- NOTE | 2018-02-05 12:14 | PN ---
Progress Note, Physician Chief Complaint: EVENTS AND NOTES REVIEWED FEELING BETTER +BM - Current Medication List Current Medications: Active Medications Amlodipine Besylate (Norvasc -) 5 mg PO DAILY [facility] Last Admin: 02/05/18 09:46 Dose: 5 mg Aspirin (Asa -) 81 mg PO DAILY [facility] Last Admin: 02/05/18 09:48 Dose: 81 mg Divalproex Sodium (Depakote -) 250 mg PO BID [facility] Last Admin: 02/05/18 09:46 Dose: 250 mg Heparin Sodium (Porcine) (Heparin -) 5,000 unit SQ TID [facility] Last Admin: 02/05/18 06:26 Dose: 5,000 unit Famotidine/Sodium Chloride (Pepcid 20 Mg Premixed Ivpb -) 20 mg in 50 mls @ 100 mls/hr IVPB BID [facility] Last Admin: 02/05/18 09:46 Dose: 100 mls/hr Dextrose/Sodium Chloride (D5-Ns -) 1,000 mls @ 100 mls/hr IV ASDIR [facility] Last Admin: 02/04/18 22:13 Dose: 100 mls/hr Insulin Aspart (Novolog Vial Sliding Scale -) 1 vial SQ TIDAC [facility]; Protocol Last Admin: 02/05/18 06:27 Dose: 6 units Insulin Detemir (Levemir Vial) 28 units SQ ACBK [facility] Last Admin: 02/05/18 06:26 Dose: 28 units Losartan Potassium (Cozaar -) 100 mg PO DAILY [facility] Last Admin: 02/05/18 09:46 Dose: 100 mg Metoclopramide HCl (Reglan -) 5 mg PO DAILY@0800 [facility] Last Admin: 02/05/18 08:02 Dose: 5 mg Multivitamins/Minerals/Vitamin C (Tab-A-Vit -) 1 tab PO DAILY [facility] Last Admin: 02/05/18 09:46 Dose: 1 tab Ondansetron HCl (Zofran Odt -) 4 mg SL TID PRN PRN Reason: NAUSEA AND/OR VOMITING Last Admin: 02/04/18 12:33 Dose: 4 mg Pramipexole Dihydrochloride (Mirapex -) 1 mg PO [facility] Last Admin: 02/04/18 22:14 Dose: 1 mg Rosuvastatin Calcium (Crestor -) 10 mg PO [facility] Last Admin: 02/04/18 22:14 Dose: 10 mg - Objective Vital Signs: Vital Signs Temperature 97.6 F 02/05/18 10:00 Pulse Rate 72 02/05/18 10:00 Respiratory Rate 18 02/05/18 10:00 Blood Pressure 159/87 02/05/18 10:00 O2 Sat by Pulse Oximetry (%) 99 02/04/18 21:00 Constitutional: Yes: Mild Distress Eyes: Yes: WNL HENT: Yes: WNL Neck: Yes: WNL Cardiovascular: Yes: WNL Respiratory: Yes: WNL Gastrointestinal: Yes: Soft, Tenderness Genitourinary: Yes: WNL Musculoskeletal: Yes: WNL Extremities: Yes: WNL Edema: No Peripheral Pulses WNL: Yes Integumentary: Yes: WNL Wound/Incision: Yes: Clean/Dry Neurological: Yes: WNL ...Motor Strength: WNL Psychiatric: Yes: WNL Labs: CBC, BMP 02/05/18 06:10 02/05/18 06:10 Problem List - Problems (1) Constipation Code(s): K59.00 - CONSTIPATION, UNSPECIFIED (2) Elevated troponin Code(s): R74.8 - ABNORMAL LEVELS OF OTHER SERUM ENZYMES (3) Leukocytosis Code(s): D72.829 - ELEVATED WHITE BLOOD CELL COUNT, UNSPECIFIED (4) Abdominal pain Code(s): R10.9 - UNSPECIFIED ABDOMINAL PAIN Qualifiers: Abdominal location: generalized Qualified Code(s): R10.84 - Generalized abdominal pain (5) Diabetes Code(s): E11.9 - TYPE 2 DIABETES MELLITUS WITHOUT COMPLICATIONS Qualifiers: Diabetes mellitus type: type 2 Assessment/Plan ADVANCE TO SOFT DIET PAIN CONTROL OOB TO CHAIR BGM CHECKS GI F/U DC PLANNING
[2018-02-05] MEDS: ROSUVASTATIN CA 10 MG TABLET (FP) PO SCH (22:58)
[2018-02-05] MEDS: PRAMIPEXOLE DIHYDROCHLORIDE 1 MG TABLET PO SCH (22:59)
[2018-02-05] MEDS: DEXTROSE 5%-NORMAL SALINE 1,000 ML IV SCH (23:00)
[2018-02-06] MEDS ORDERED: LORazepam 2 MG/ML SDV VIAL IVPUSH ONE (03:20)
[2018-02-06] MEDS: INSULIN SLIDING SCALE (NOVOLOG) 1 VIAL SQ SCH ×3 (06:25→16:28)
[2018-02-06] MEDS: INSULIN (LEVEMIR) 100 UNITS/ML UNITS SQ SCH (06:26)
[2018-02-06] MEDS: HEPARIN NA (PORCINE) 5,000 UNITS/ML 1ML VIAL SQ SCH ×3 (06:26→22:20)
[2018-02-06] MEDS ORDERED: PT OWN MED DRAWER 7, Y5N ONE ×3 (07:02→21:20)
[2018-02-06] MEDS ORDERED: INSULIN (NOVOLOG) ASPART 100 UNITS/ML 10ML VIAL ONE (07:02)
[2018-02-06] MEDS ORDERED: INSULIN (LEVEMIR) 100 UNITS/ML UNITS SQ ONE (07:03)
[2018-02-06] MEDS: FAMOTIDINE 20 MG/50 ML IVPB 20 MG/50 ML MG IVPB SCH ×2 (12:14→22:20)
[2018-02-06] MEDS: MULTIVITAMINS (DAILY MVI) TABLET (FP) PO SCH (13:36)
[2018-02-06] MEDS: LOSARTAN POTASSIUM 50 MG TABLET (FP) PO SCH (13:36)
[2018-02-06] MEDS: amLODIPine BESYLATE 5 MG TABLET (FP) PO SCH (13:37)
[2018-02-06] MEDS: DIVALPROEX SODIUM 250 MG TABLET E.C. PO SCH ×2 (13:37→22:20)
[2018-02-06] MEDS: ASPIRIN 81 MG CHEWABLE TABLETS PO SCH (13:37)
[2018-02-06] MEDS: DONEPEZIL HCL 10 MG TABLET (FP) PO SCH (13:37)
[2018-02-06] MEDS: METOCLOPRAMIDE HCL 10 MG TABLET (FP) PO SCH (13:38)
--- NOTE | 2018-02-06 17:20 | PN ---
GI Progress Note Subjective: no reports of diarrhea, sleepy because of Ativa,no complaints of abdominal pain. Repeat FUA reviewed. Severe fecal impaction resolved. - Objective Vital Signs: Vital Signs Temperature 97.9 F 02/06/18 16:51 Pulse Rate 70 02/06/18 16:51 Respiratory Rate 18 02/06/18 16:51 Blood Pressure 164/68 02/06/18 16:51 O2 Sat by Pulse Oximetry (%) 98 02/06/18 09:00 Constitutional: Well Nourished Eyes: Yes: Conjunctiva Clear HENT: Yes: Atraumatic Neck: Yes: Supple Cardiovascular: Yes: Regular Rate and Rhythm Respiratory: Yes: CTA Bilaterally ...Palpate: Yes: Soft. No: Firm/Rigid, Guarding, Hepatomegaly, Mass, Pulsatile Mass, Splenomegaly, Tenderness Labs: CBC, BMP 02/05/18 06:10 02/05/18 06:10 Problem List - Problems (1) Constipation Assessment/Plan: --resolved R> Miralax 17 grams daily made aware to follow to re asses medication for severe constipation Code(s): K59.00 - CONSTIPATION, UNSPECIFIED (2) Diverticulosis Code(s): K57.90 - DVRTCLOS OF INTEST, PART UNSP, W/O PERF OR ABSCESS W/O BLEED
[2018-02-06] MEDS: DEXTROSE 5%-NORMAL SALINE 1,000 ML IV SCH (22:19)
[2018-02-06] MEDS: ROSUVASTATIN CA 10 MG TABLET (FP) PO SCH (22:20)
[2018-02-06] MEDS: PRAMIPEXOLE DIHYDROCHLORIDE 1 MG TABLET PO SCH (22:20)
--- NOTE | 2018-02-07 00:46 | CONSULT ---
Consult Consult Specialty:: endocrine Referred by:: dr.iyad garces Reason for Consultation:: diabetes mellitus - History of Present Illness Chief Complaint: nausea and abdominal pain History of Present Illness: 77 year old female with a PMH significant for DM2, HTN, HLD, Parkinson's Disease , Dementia, and diverticulosis presented to office with nausea vomiting and 10 days without a bowel movement. Patient was at [facility] ED for the same reason, but left AMA she felt her GI discomfort had improved. She says when she eats food she quickly throws it up and it appears hardly digested. She had not passed flatus was weak,unable to stand without falling,she was readmitted for dehydration and sever constipation. 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 Cardio/Vascular: Yes: HTN, Hyperlipdemia Gastrointestinal: Yes: Diverticulosis Musculoskeletal: Yes: Osteoarthritis Endocrine: Yes: Diabetes Mellitus - Past Surgical History Past Surgical History: Yes: Appendectomy, Cholecystectomy, - Alcohol/Substance Use Hx Alcohol Use: No - Smoking History Smoking history: Never smoked Have you smoked in the past 12 months: No Aproximately how many cigarettes per day: 0 - Social History History of Recent Travel: No Home Medications - Allergies Allergies/Adverse Reactions: Allergies Allergy/AdvReac Type Severity Reaction Status Date / Time valsartan [From Chloé] Allergy Verified 02/02/18 18:23 - Home Medications Home Medications: Ambulatory Orders Aspirin [ASA -] 81 mg PO DAILY 09/09/15 Olmesartan/Hydrochlorothiazide [Benicar Hct 40-12.5MG Tab -] 1 tab PO DAILY Insulin Lispro [Humalog Kwikpen U-100] 100 unit SQ AC #1 insuln.pen 06/10/17 Multivitamins [Multivit ([facility] Formulary)] 1 tab PO DAILY tab 08/19/17 Ondansetron [Zofran Odt -] 4 mg SL TID PRN #9 od.tablet 12/03/17 Divalproex [Depakote -] 250 mg PO BID 02/01/18 Donepezil HCl 10 mg PO DAILY 02/01/18 Metoclopramide HCl 5 mg PO DAILY 02/01/18 Pramipexole Di-HCl [Pramipexole Dihydrochloride] 1 mg PO HS 02/01/18 Rosuvastatin [Crestor -] 10 mg PO AC 02/01/18 Insulin Glargine,Hum.rec.anlog [Lantus (nf)] 28 units SQ ACBK 02/02/18 Mirabegron [Myrbetriq] 25 mg PO HS 02/05/18 Review of Systems - Review of Systems Constitutional: reports: Lethargy, Weakness Eyes: reports: No Symptoms HENT: reports: No Symptoms Neck: reports: No Symptoms Cardiovascular: reports: Shortness of Breath Respiratory: reports: Exercise Intolerance, SOB on Exertion Gastrointestinal: reports: Bloating, Constipation, Nausea Genitourinary: reports: No Symptoms Breasts: reports: No Symptoms Reported Musculoskeletal: reports: Muscle Weakness Neurological: reports: Confusion, Weakness Endocrine: reports: Unexplained Weight Loss Physical Exam Vital Signs: Vital Signs Temperature 97.9 F 02/06/18 16:51 Pulse Rate 70 02/06/18 16:51 Respiratory Rate 18 02/06/18 16:51 Blood Pressure 164/68 02/06/18 16:51 O2 Sat by Pulse Oximetry (%) 98 02/06/18 09:00 Constitutional: Yes: Calm Eyes: Yes: EOM Intact HENT: Yes: Normocephalic Neck: Yes: Trachea Midline Cardiovascular: Yes: Regular Rate and Rhythm Respiratory: Yes: CTA Bilaterally Gastrointestinal: Yes: Hypoactive Bowel Sounds, Tenderness, Epigastrium ...Rectal Exam: Yes: Deferred Renal/: Yes: WNL Musculoskeletal: Yes: Muscle Weakness Extremities: Yes: WNL Peripheral Pulses WNL: Yes Neurological: Yes: Alert, Oriented Labs: CBC, BMP 02/05/18 06:10 02/05/18 06:10 Problem List - Problems (1) Constipation Code(s): K59.00 - CONSTIPATION, UNSPECIFIED (2) Abdominal pain Code(s): R10.9 - UNSPECIFIED ABDOMINAL PAIN Qualifiers: Abdominal location: generalized Qualified Code(s): R10.84 - Generalized abdominal pain (3) Chest pain Code(s): R07.9 - CHEST PAIN, UNSPECIFIED Qualifiers: Chest pain type: unspecified Qualified Code(s): R07.9 - Chest pain, unspecified (4) Colitis Code(s): K52.9 - NONINFECTIVE GASTROENTERITIS AND COLITIS, UNSPECIFIED (5) Diabetes Code(s): E11.9 - TYPE 2 DIABETES MELLITUS WITHOUT COMPLICATIONS Qualifiers: Diabetes mellitus type: type 2 Assessment/Plan Current Active Problems diabetes mellitus 2 diabetic gastroparesis dehydration Constipation (Acute) Elevated troponin (Acute) Leukocytosis (Acute) Laboratory Results - last 24 hr 02/05/18 02/05/18 02/06/18 11:42 11:46 06:25 POC Glucometer 64 72 149 02/06/18 02/06/18 11:59 16:27 POC Glucometer 134 82 Laboratory Tests 08/17/17 08/18/17 08/18/17 21:10 06:46 14:15 Sodium Potassium Chloride Carbon Dioxide Anion Gap BUN Creatinine Creat Clearance w eGFR POC Glucometer 182 265 197 Random Glucose Total Protein Albumin 08/18/17 08/18/17 02/05/18 17:02 21:23 06:10 Sodium 138 Potassium 4.2 Chloride 101 Carbon Dioxide 30 Anion Gap 8 BUN 7 Creatinine 1.0 Creat Clearance w eGFR 54.05 POC Glucometer 214 124 Random Glucose 255 H Total Protein 5.7 L Albumin 2.5 L 02/05/18 02/05/18 11:42 11:46 Sodium Potassium Chloride Carbon Dioxide Anion Gap BUN Creatinine Creat Clearance w eGFR POC Glucometer 64 72 Random Glucose Total Protein Albumin plan: bgm tid ac meals as ordered levemir 12 units am if sugar above 100mg/dl lower dose for poor appetite ck hba1c tsh free t4
[2018-02-07] MEDS ORDERED: INSULIN (LEVEMIR) 100 UNITS/ML UNITS SQ ONE (05:59)
[2018-02-07] MEDS: INSULIN (LEVEMIR) 100 UNITS/ML UNITS SQ SCH (06:08)
[2018-02-07] MEDS: HEPARIN NA (PORCINE) 5,000 UNITS/ML 1ML VIAL SQ SCH ×3 (06:08→22:54)
[2018-02-07] MEDS: INSULIN SLIDING SCALE (NOVOLOG) 1 VIAL SQ SCH ×3 (06:09→17:46)
[2018-02-07 06:17] LABS: HEMATOCRIT 34.9 % (32.4-45.2); HEMOGLOBIN 11.2 GM/dL (10.7-15.3); MCH 26.4 pg (25.7-33.7); MCHC 32.2 g/dl (32.0-36.0); MEAN CELL VOLUME 82.1 fl (80-96); MEAN PLT VOLUME 8.7 fl (7.5-11.1); PLATELET COUNT 335 K/MM3 (134-434); RBC 4.25 M/mm3 (3.60-5.2); RDW 14.5 % (11.6-15.6); WHITE BLOOD COUNT 8.1 K/mm3 (4.0-10.0)
[2018-02-07 07:07] LABS: ALBUMIN 2.3 g/dl (3.4-5.0); ALK PHOS 84 U/L (45-117); ANION GAP 8 MMOL/L (8-16); BILIRUBIN,TOTAL 0.5 mg/dL (0.2-1); BLOOD UREA NITROGEN 4 mg/dL (7-18); CALCIUM 8.2 mg/dL (8.5-10.1); CHLORIDE 102 mmol/L (98-107); CO2 30 mmol/L (21-32); CREATININE 0.6 mg/dL (0.55-1.3); GLUCOSE,RANDOM 124 mg/dL (74-106); POTASSIUM 3.1 mmol/L (3.5-5.1); SGOT/AST 47 U/L (15-37); SGPT/ALT 33 U/L (13-61); SODIUM 140 mmol/L (136-145); TOT PROT 5.4 g/dl (6.4-8.2)
[2018-02-07] MEDS: METOCLOPRAMIDE HCL 10 MG TABLET (FP) PO SCH (08:20)
[2018-02-07] MEDS: amLODIPine BESYLATE 5 MG TABLET (FP) PO SCH (10:56)
[2018-02-07] MEDS: ASPIRIN 81 MG CHEWABLE TABLETS PO SCH (10:57)
[2018-02-07] MEDS: MULTIVITAMINS (DAILY MVI) TABLET (FP) PO SCH (10:57)
[2018-02-07] MEDS: DONEPEZIL HCL 10 MG TABLET (FP) PO SCH (10:57)
[2018-02-07] MEDS: LOSARTAN POTASSIUM 50 MG TABLET (FP) PO SCH (10:57)
[2018-02-07] MEDS: DIVALPROEX SODIUM 250 MG TABLET E.C. PO SCH ×2 (10:58→22:55)
[2018-02-07] MEDS ORDERED: PANTOPRAZOLE SOD 40 MG SUSPENSION PACKET PO SCH ×2 (11:35→13:00)
--- NOTE | 2018-02-07 11:35 | PN ---
Progress Note, Physician Chief Complaint: patient awake and alert lost iv access repeat FUA pending - Current Medication List Current Medications: Active Medications Amlodipine Besylate (Norvasc -) 5 mg PO DAILY [facility] Last Admin: 02/07/18 10:56 Dose: 5 mg Aspirin (Asa -) 81 mg PO DAILY [facility] Last Admin: 02/07/18 10:57 Dose: 81 mg Bupropion HCl (Wellbutrin Xl -) 150 mg PO DAILY [facility] Last Admin: 02/07/18 10:57 Dose: 150 mg Divalproex Sodium (Depakote -) 250 mg PO BID [facility] Last Admin: 02/07/18 10:58 Dose: 250 mg Donepezil HCl (Aricept -) 10 mg PO DAILY [facility] Last Admin: 02/07/18 10:57 Dose: 10 mg Heparin Sodium (Porcine) (Heparin -) 5,000 unit SQ TID [facility] Last Admin: 02/07/18 06:08 Dose: 5,000 unit Insulin Aspart (Novolog Vial Sliding Scale -) 1 vial SQ TIDAC [facility]; Protocol Last Admin: 02/07/18 06:09 Dose: Not Given Insulin Detemir (Levemir Vial) 12 units SQ ACBK [facility] Last Admin: 02/07/18 06:08 Dose: 12 units Losartan Potassium (Cozaar -) 100 mg PO DAILY [facility] Last Admin: 02/07/18 10:57 Dose: 100 mg Metoclopramide HCl (Reglan -) 5 mg PO DAILY@0800 [facility] Last Admin: 02/07/18 08:20 Dose: 5 mg Multivitamins/Minerals/Vitamin C (Tab-A-Vit -) 1 tab PO DAILY [facility] Last Admin: 02/07/18 10:57 Dose: 1 tab Ondansetron HCl (Zofran Odt -) 4 mg SL TID PRN PRN Reason: NAUSEA AND/OR VOMITING Last Admin: 02/04/18 12:33 Dose: 4 mg Pantoprazole Sodium (Protonix Packets For Oral Suspension -) 40 mg PO DAILY [facility] Potassium Chloride (Potassium Chloride Oral Liquid) 40 meq PO ONCE ONE Stop: 02/07/18 12:01 Pramipexole Dihydrochloride (Mirapex -) 1 mg PO [facility] Last Admin: 02/06/18 22:20 Dose: 1 mg Rosuvastatin Calcium (Crestor -) 10 mg PO [facility] Last Admin: 02/06/18 22:20 Dose: 10 mg - Objective Vital Signs: Vital Signs Temperature 98.1 F 02/07/18 06:20 Pulse Rate 73 02/07/18 06:20 Respiratory Rate 18 02/07/18 06:20 Blood Pressure 159/73 02/07/18 06:20 O2 Sat by Pulse Oximetry (%) 98 02/06/18 21:00 Constitutional: Yes: Calm Cardiovascular: Yes: Regular Rate and Rhythm, S1, S2 Respiratory: Yes: CTA Bilaterally Gastrointestinal: Yes: Normal Bowel Sounds, Soft Edema: No Labs: CBC, BMP 02/07/18 05:45 02/07/18 05:45 Problem List - Problems (1) Constipation Assessment/Plan: seen by GI repeat FUA showed decreased stool content and on miralax daily repeat FUA from today pending on sfot diet Code(s): K59.00 - CONSTIPATION, UNSPECIFIED (2) Diabetes Assessment/Plan: endocrine consult appreciated low bgm on soft diet ivf with dextrose- stopped Code(s): E11.9 - TYPE 2 DIABETES MELLITUS WITHOUT COMPLICATIONS Qualifiers: Diabetes mellitus type: type 2 (3) HTN (hypertension) Assessment/Plan: losartan 100mg daily Code(s): I10 - ESSENTIAL (PRIMARY) HYPERTENSION (4) Elevated troponin Assessment/Plan: cardiology consult appreciated echo- EF 60-65 % and normal wall motion repeat troponin level ordered- trending down now normal on aspirin and statin Code(s): R74.8 - ABNORMAL LEVELS OF OTHER SERUM ENZYMES (5) Hypokalemia Assessment/Plan: repelted recheck in AM Code(s): E87.6 - HYPOKALEMIA Assessment/Plan PT eval- for dc planning dietary eval for calorie count and patient education recheck POtassium in AM leukocytosis resolved
[2018-02-07] MEDS ORDERED: POTASSIUM CHLORIDE ORAL LIQUID 20 MEQ/15 ML PO ONE (12:00)
[2018-02-07] MEDS: PANTOPRAZOLE 40 MG TABLET (FP) PO SCH (13:22)
[2018-02-07] MEDS: FAMOTIDINE 20 MG/50 ML IVPB 20 MG/50 ML MG IVPB SCH (13:26)
[2018-02-07] MEDS ORDERED: PT OWN MED DRAWER 7, Y5N ONE (14:16)
[2018-02-07] MEDS ORDERED: amLODIPine BESYLATE 5 MG TABLET (FP) PO ONE (19:15)
[2018-02-07] MEDS: ROSUVASTATIN CA 10 MG TABLET (FP) PO SCH (22:55)
[2018-02-07] MEDS: PRAMIPEXOLE DIHYDROCHLORIDE 1 MG TABLET PO SCH (22:56)
[2018-02-08] MEDS ORDERED: INSULIN (LEVEMIR) 100 UNITS/ML UNITS SQ ONE (06:19)
[2018-02-08] MEDS: INSULIN (LEVEMIR) 100 UNITS/ML UNITS SQ SCH (06:44)
[2018-02-08] MEDS: HEPARIN NA (PORCINE) 5,000 UNITS/ML 1ML VIAL SQ SCH ×3 (06:44→22:53)
[2018-02-08] MEDS: INSULIN SLIDING SCALE (NOVOLOG) 1 VIAL SQ SCH ×3 (06:45→18:06)
[2018-02-08] MEDS: METOCLOPRAMIDE HCL 10 MG TABLET (FP) PO SCH (08:15)
[2018-02-08 08:56] LABS: ALBUMIN 2.4 g/dl (3.4-5.0); ALK PHOS 92 U/L (45-117); ANION GAP 9 MMOL/L (8-16); BILIRUBIN,TOTAL 0.6 mg/dL (0.2-1); BLOOD UREA NITROGEN 5 mg/dL (7-18); CALCIUM 8.2 mg/dL (8.5-10.1); CHLORIDE 100 mmol/L (98-107); CO2 29 mmol/L (21-32); CREATININE 0.7 mg/dL (0.55-1.3); GLUCOSE,RANDOM 179 mg/dL (74-106); MAGNESIUM 2.1 mg/dL (1.8-2.4); POTASSIUM 3.6 mmol/L (3.5-5.1); SGOT/AST 40 U/L (15-37); SGPT/ALT 37 U/L (13-61); SODIUM 138 mmol/L (136-145); TOT PROT 5.4 g/dl (6.4-8.2)
[2018-02-08] MEDS ORDERED: PT OWN MED DRAWER 7, Y5N ONE ×4 (09:00→22:31)
[2018-02-08] MEDS: MULTIVITAMINS (DAILY MVI) TABLET (FP) PO SCH (09:06)
[2018-02-08] MEDS: DIVALPROEX SODIUM 250 MG TABLET E.C. PO SCH (09:06)
[2018-02-08] MEDS: DONEPEZIL HCL 10 MG TABLET (FP) PO SCH (09:06)
[2018-02-08] MEDS: PANTOPRAZOLE 40 MG TABLET (FP) PO SCH (09:06)
[2018-02-08] MEDS: LOSARTAN POTASSIUM 50 MG TABLET (FP) PO SCH (09:06)
[2018-02-08] MEDS: ASPIRIN 81 MG CHEWABLE TABLETS PO SCH (09:06)
[2018-02-08] MEDS: amLODIPine BESYLATE 5 MG TABLET (FP) PO SCH (09:07)
[2018-02-08] MEDS ORDERED: POLYETHYLENE GLYCOL 3350 119 GM BTL PO SCH (10:30)
[2018-02-08 14:14] VITALS: BMI 23.0
[2018-02-08] MEDS ORDERED: INSULIN (NOVOLOG) ASPART 100 UNITS/ML 10ML VIAL ONE (17:39)
--- NOTE | 2018-02-08 18:21 | CON.PSY ---
Psychiatry Consult Chief Complaint: 77 year old female ewith Dementia seen for Psych consult. On zyprexa. Symptoms: reports: Decreased Motivation, Somatic Symptoms - Previous Psychiatric Treatment Outpatient: None Inpatient: None - Previous Substance Abuse Treatment Outpatient: None Inpatient: None - Current Medications Current Medications: Active Medications Amlodipine Besylate (Norvasc -) 5 mg PO DAILY [facility] Last Admin: 02/08/18 09:07 Dose: 5 mg Aspirin (Asa -) 81 mg PO DAILY [facility] Last Admin: 02/08/18 09:06 Dose: 81 mg Divalproex Sodium (Depakote -) 250 mg PO BID [facility] Last Admin: 02/08/18 09:06 Dose: 250 mg Donepezil HCl (Aricept -) 10 mg PO DAILY [facility] Last Admin: 02/08/18 09:06 Dose: 10 mg Heparin Sodium (Porcine) (Heparin -) 5,000 unit SQ TID [facility] Last Admin: 02/08/18 15:09 Dose: 5,000 unit Insulin Aspart (Novolog Vial Sliding Scale -) 1 vial SQ TIDAC [facility]; Protocol Last Admin: 02/08/18 18:06 Dose: 2 units Insulin Detemir (Levemir Vial) 12 units SQ ACBK [facility] Last Admin: 02/08/18 06:44 Dose: 12 units Losartan Potassium (Cozaar -) 100 mg PO DAILY [facility] Last Admin: 02/08/18 09:06 Dose: 100 mg Metoclopramide HCl (Reglan -) 5 mg PO DAILY@0800 [facility] Last Admin: 02/08/18 08:15 Dose: 5 mg Multivitamins/Minerals/Vitamin C (Tab-A-Vit -) 1 tab PO DAILY [facility] Last Admin: 02/08/18 09:06 Dose: 1 tab Ondansetron HCl (Zofran Odt -) 4 mg SL TID PRN PRN Reason: NAUSEA AND/OR VOMITING Last Admin: 02/04/18 12:33 Dose: 4 mg Pantoprazole Sodium (Protonix -) 40 mg PO DAILY [facility] Last Admin: 02/08/18 09:06 Dose: 40 mg Polyethylene Glycol (Miralax (For Daily Use) -) 17 gm PO BID [facility] Pramipexole Dihydrochloride (Mirapex -) 1 mg PO HS [facility] Last Admin: 02/07/18 22:56 Dose: 1 mg Rosuvastatin Calcium (Crestor -) 10 mg PO [facility] Last Admin: 02/07/18 22:55 Dose: 10 mg - Allergies Allergies: Allergies Allergy/AdvReac Type Severity Reaction Status Date / Time valsartan [From [place]] Allergy Verified 02/02/18 18:23 - Current Living Status Usual Living Arrangement: With Significant Other - Current Mental Status Evaluation Appearance: Disheveled Attitude: Guarded - Affect Affect: Constrictive Appropriateness: Appropriate to Content - Mood Mood: Anxious - Speech/Language Expressive: Delayed - Psychomotor Activity Psychomotor Activity: Slowed - Thought Process Thought Process: Circumstantial - Thought Content Hallucinations: Absent Delusions: Absent - Self Perception Self Perception: No Impairment - Cognition Attention: Diminished Orientation: Time Memory, Short Term: 1/3 Memory, Remote with Promptin/3 - Concentration Serial Sevens Intact: No Simple Calculations Intact: No - Abstraction Proverb Interpretation: Impaired Judgement: Minimally Impaired - Insight Insight: Impaired - Impulse Control Impulse Control: Minimally Impaired - Suicidal Ideation Suicidal Ideation: No - Homicidal Ideation Homicidal Ideation: No Assessment/Plan 1) Reduce Zyprerxa dose.
--- NOTE | 2018-02-08 18:24 | PN ---
Progress Note (short form) - Note Progress Note: Psych, Correction... Patient is on Depakote 250mg po bid. Plan; Reduce DEpakote to 250mg po od.
[2018-02-08] MEDS: PRAMIPEXOLE DIHYDROCHLORIDE 1 MG TABLET PO SCH (22:53)
[2018-02-08] MEDS: ROSUVASTATIN CA 10 MG TABLET (FP) PO SCH (22:53)
[2018-02-08] MEDS: POLYETHYLENE GLYCOL 3350 119 GM BTL PO SCH (22:53)
[2018-02-09] MEDS ORDERED: HALOPERIDOL LACTATE 5 MG/ML IM ONE (04:23)
[2018-02-09] MEDS: HEPARIN NA (PORCINE) 5,000 UNITS/ML 1ML VIAL SQ SCH ×2 (07:02→14:00)
[2018-02-09] MEDS: INSULIN (LEVEMIR) 100 UNITS/ML UNITS SQ SCH (07:03)
[2018-02-09] MEDS: INSULIN SLIDING SCALE (NOVOLOG) 1 VIAL SQ SCH ×3 (07:03→17:06)
[2018-02-09] MEDS: METOCLOPRAMIDE HCL 10 MG TABLET (FP) PO SCH (08:26)
[2018-02-09] MEDS: NIFEdipine E.R 60 MG TABLET (UD) PO SCH ×2 (08:29→09:30)
--- NOTE | 2018-02-09 09:11 | DS ---
Physical Examination Vital Signs: Vital Signs Temperature 98.4 F 02/09/18 06:00 Pulse Rate 74 02/09/18 06:00 Respiratory Rate 20 02/09/18 06:00 Blood Pressure 189/78 H 02/09/18 06:00 O2 Sat by Pulse Oximetry (%) 100 02/08/18 21:00 Cardiovascular: Yes: Regular Rate and Rhythm Respiratory: Yes: Regular, CTA Bilaterally Gastrointestinal: Yes: Normal Bowel Sounds, Soft. No: Tenderness Labs: CBC, BMP 02/07/18 05:45 02/08/18 07:00 Discharge Summary Reason For Visit: EXACERBATION OF ASTHMA Current Active Problems Constipation (Acute) Elevated troponin (Acute) Hypokalemia (Acute) Leukocytosis (Acute) Hospital Course: - Problems (1) Constipation Assessment/Plan: seen by GI repeat FUA showed decreased stool content and on miralax daily on sfot diet Code(s): K59.00 - CONSTIPATION, UNSPECIFIED (2) Diabetes Assessment/Plan: endocrine consult appreciated low bgm on soft diet ivf with dextrose- stopped Code(s): E11.9 - TYPE 2 DIABETES MELLITUS WITHOUT COMPLICATIONS Qualifiers: Diabetes mellitus type: type 2 (3) HTN (hypertension) Assessment/Plan: losartan 100mg daily procardia 60 Code(s): I10 - ESSENTIAL (PRIMARY) HYPERTENSION (4) Elevated troponin Assessment/Plan: cardiology consult appreciated echo- EF 60-65 % and normal wall motion repeat troponin level ordered- trending down now normal on aspirin and statin Code(s): R74.8 - ABNORMAL LEVELS OF OTHER SERUM ENZYMES (5) Hypokalemia Assessment/Plan: repelted recheck in AM Code(s): E87.6 - HYPOKALEMIA Assessment/Plan PT eval- for dc planning--would benefit from snf dietary eval for calorie count and patient education leukocytosis resolved - Instructions Referrals: Ro Espana MD [Primary Care Provider] - 2 Weeks - Home Medications Comprehensive Discharge Medication List: Ambulatory Orders Aspirin [ASA -] 81 mg PO DAILY 09/09/15 Olmesartan/Hydrochlorothiazide [Benicar Hct 40-12.5MG Tab -] 1 tab PO DAILY Multivitamins [Multivit ([facility] Formulary)] 1 tab PO DAILY tab 08/19/17 Ondansetron [Zofran Odt -] 4 mg SL TID PRN #9 od.tablet 12/03/17 Donepezil HCl 10 mg PO DAILY 02/01/18 Metoclopramide HCl 5 mg PO DAILY 02/01/18 Pramipexole Di-HCl [Pramipexole Dihydrochloride] 1 mg PO HS 02/01/18 Rosuvastatin [Crestor -] 10 mg PO AC 02/01/18 Insulin Glargine,Hum.rec.anlog [Lantus (10mL VIAL) -] 28 units SQ ACBK 02/02/18 Bupropion HCl [Wellbutrin Xl -] 150 mg PO DAILY #30 tab.sr.24h 02/09/18 Divalproex [Depakote -] 250 mg PO DAILY tablet.ec 02/09/18 Nifedipine ER [Procardia XL -] 60 mg PO DAILY #30 tab.er.24 02/09/18 Pantoprazole Sodium [Protonix -] 40 mg PO DAILY #30 tablet.ec 02/09/18 Polyethylene Glycol 3350 [Miralax 119 gm Btl -] 17 gm PO BID bottle 02/09/18
[2018-02-09] MEDS ORDERED: PT OWN MED DRAWER 7, Y5N ONE (09:27)
[2018-02-09] MEDS: PANTOPRAZOLE 40 MG TABLET (FP) PO SCH (09:29)
[2018-02-09] MEDS: POLYETHYLENE GLYCOL 3350 119 GM BTL PO SCH (09:29)
[2018-02-09] MEDS: LOSARTAN POTASSIUM 50 MG TABLET (FP) PO SCH (09:29)
[2018-02-09] MEDS: DONEPEZIL HCL 10 MG TABLET (FP) PO SCH (09:29)
[2018-02-09] MEDS: MULTIVITAMINS (DAILY MVI) TABLET (FP) PO SCH (09:29)
[2018-02-09] MEDS: ASPIRIN 81 MG CHEWABLE TABLETS PO SCH (09:29)
[2018-02-09] MEDS ORDERED: DIVALPROEX SODIUM 250 MG TABLET E.C. PO SCH (10:00)
[2018-02-09] MEDS ORDERED: INSULIN (NOVOLOG) ASPART 100 UNITS/ML 10ML VIAL ONE ×2 (11:55→17:01)
[2018-02-09 18:24] VITALS: BP 137/77; PULSE 86; TEMP 97.6
--- NOTE | 2018-05-09 10:37 | EKG ---
Test Reason : Blood Pressure : / mmHG Vent. Rate : 077 BPM Atrial Rate : 077 BPM P-R Int : 162 ms QRS Dur : 118 ms QT Int : 400 ms P-R-T Axes : 025 -48 101 degrees QTc Int : 452 ms NORMAL SINUS RHYTHM LEFT ANTERIOR FASCICULAR BLOCK LEFT VENTRICULAR HYPERTROPHY WITH QRS WIDENING AND REPOLARIZATION ABNORMALITY ABNORMAL ECG WHEN COMPARED WITH ECG OF 02-FEB-2018 23:16, QT HAS LENGTHENED Confirmed by ASHWINI MALIN, KELSEY ([id number]) on 05/09/2018 10:36:55 AM Referred By: Confirmed By:KELSEY MARADIAGA MD
== END 2018-02-09 19:40 | disposition home health service (06) | DRG 392 ==
LOC: JER 18:11 → JERBED 23:11 → UNDOADMOB 23:36 → JERBED 23:36 → J5S 02-03 02:53 → OBSVTOIN 02-04 09:47 → J5S 02-05 22:48
PROVIDERS: ADMIT Internal Medicine; ATTEND Family Medicine
DX: K59.00 Constipation, unspecified (principal); G20 Parkinson's disease; F03.90 Unspecified dementia, unspecified severity, without behavioral disturbance, psychotic disturbance, mood disturbance, and anxiety; E11.43 Type 2 diabetes mellitus with diabetic autonomic (poly)neuropathy; K31.84 Gastroparesis; E86.0 Dehydration; E87.6 Hypokalemia; I44.4 Left anterior fascicular block; K57.90 Diverticulosis of intestine, part unspecified, without perforation or abscess without bleeding; I10 Essential (primary) hypertension; E78.5 Hyperlipidemia, unspecified; K57.30 Diverticulosis of large intestine without perforation or abscess without bleeding; R32 Unspecified urinary incontinence; Z79.4 Long term (current) use of insulin; F02.80 Dementia in other diseases classified elsewhere, unspecified severity, without behavioral disturbance, psychotic disturbance, mood disturbance, and anxiety; G62.9 Polyneuropathy, unspecified; R63.4 Abnormal weight loss; Z68.23 Body mass index [BMI] 23.0-23.9, adult; D72.829 Elevated white blood cell count, unspecified; R74.8 Abnormal levels of other serum enzymes
CPT/HCPCS: 36415; 71045-TC-FY; 74018-TC-FY; 74019-TC-FY; 74177-TC; 80048; 80053; 81003; 81015; 82140; 82550; 82553; 82962; 83036; 83605; 83690; 83735; 84439; 84443; 84484; 85025; 85027; 90670; 93005; 93010; 93306-TC; 97116-GP; 97161-GP; 99282-25; 99283-25; G0378; J0131; J1644; J7030; Q0162

== ENCOUNTER 2018-04-15 14:32 | Emergency (ER) | payer OTHER ==
[2018-04-15] MEDS ORDERED: ONDANSETRON 4 MG/2 ML VIAL IVPUSH ONE (15:20)
[2018-04-15 15:23] VITALS: BP 126/63; PULSE 71; TEMP 98.7; BMI 24.9
--- NOTE | 2018-04-15 15:23 | PDOC ---
Rapid Medical Evaluation Chief Complaint: Weakness Time Seen by Provider: 04/15/18 15:19 Medical Evaluation: Allergies Allergy/AdvReac Type Severity Reaction Status Date / Time valsartan [From Chloé] Allergy Mild Verified 04/15/18 15:20 04/15/18 15:21 Pt c/o: vomiting, ble swelling and weakness intermittently x 2 months, hx dm, htn Pt on brief exam: 2+ pitting edema to BLE, lcta clear, VSS Pt ordered for: labs, ekg, ua, zofran, cxr Pt to proceed to the ED Discharge Disposition - Diagnosis Vomiting - Referrals - Patient Instructions - Post Discharge Activity
[2018-04-15] MEDS ORDERED: ONDANSETRON 4 MG/2 ML VIAL ONE (15:59)
--- NOTE | 2018-04-15 15:59 | PDOC ---
History of Present Illness - General History Source: Patient <Thomas Paris - Last Filed: 04/15/18 18:34> <Nikia Kirk - Last Filed: 04/15/18 19:36> - General Chief Complaint: Weakness Stated Complaint: STOMACH PAIN Time Seen by Provider: 04/15/18 15:19 Past History - Past Medical History Anemia: No Asthma: No Cancer: No Cardiac Disorders: No CVA: No COPD: No CHF: No DVT: No Dementia: No Diabetes: Yes GI Disorders: Yes (DIVERTICULOSIS,COLONIC POLYPS,HEMORRHOIDS,) Disorders: Yes (UTERINE POLYPS,URINARY INCONTINENCE) HTN: Yes Hypercholesterolemia: Yes Liver Disease: No Seizures: No Thyroid Disease: No - Surgical History Abdominal Surgery: Yes Appendectomy: Yes Cardiac Surgery: No Cholecystectomy: Yes Lung Surgery: No Neurologic Surgery: No Orthopedic Surgery: No - Suicide/Smoking/Psychosocial Hx Smoking Status: No Smoking History: Never smoked Have you smoked in the past 12 months: No Number of Cigarettes Smoked Daily: 0 Hx Alcohol Use: No Drug/Substance Use Hx: No Substance Use Type: None Hx Substance Use Treatment: No <Thomas Paris - Last Filed: 04/15/18 18:34> <Nikia Kirk - Last Filed: 04/15/18 19:36> - Past Medical History Allergies/Adverse Reactions: Allergies Allergy/AdvReac Type Severity Reaction Status Date / Time valsartan [From [employer]] Allergy Mild Verified 04/15/18 15:20 Home Medications: Ambulatory Orders Aspirin [ASA -] 81 mg PO DAILY 09/09/15 Olmesartan/Hydrochlorothiazide [Benicar Hct 40-12.5MG Tab -] 1 tab PO DAILY Multivitamins [Multivit ([facility] Formulary)] 1 tab PO DAILY tab 08/19/17 Ondansetron [Zofran Odt -] 4 mg SL TID PRN #9 od.tablet 12/03/17 Donepezil HCl 10 mg PO DAILY 02/01/18 Metoclopramide HCl 5 mg PO DAILY 02/01/18 Pramipexole Di-HCl [Pramipexole Dihydrochloride] 1 mg PO HS 02/01/18 Rosuvastatin [Crestor -] 10 mg PO AC 02/01/18 Insulin Glargine,Hum.rec.anlog [Lantus (10mL VIAL) -] 28 units SQ ACBK 02/02/18 Bupropion HCl [Wellbutrin Xl -] 150 mg PO DAILY #30 tab.sr.24h 02/09/18 Divalproex [Depakote -] 250 mg PO DAILY tablet.ec 02/09/18 Nifedipine ER [Procardia XL -] 60 mg PO DAILY #30 tab.er.24 02/09/18 Pantoprazole Sodium [Protonix -] 40 mg PO DAILY #30 tablet.ec 02/09/18 Polyethylene Glycol 3350 [Miralax 119 gm Btl -] 17 gm PO BID bottle 02/09/18 Ondansetron HCl [Zofran] 4 mg PO Q6H #15 tablet 04/15/18 Review of Systems - Review of Systems Constitutional: No: Chills, Fever Respiratory: No: Cough, Shortness of Breath Cardiac (ROS): No: Chest Pain ABD/GI: Yes: Nausea, Vomiting. No: Diarrhea : No: Burning, Dysuria, Flank Pain, Hematuria <Thomas Paris - Last Filed: 04/15/18 18:34> *Physical Exam - Vital Signs Last Vital Signs Temp Pulse Resp BP Pulse Ox 98.7 F 71 18 126/63 99 04/15/18 15:20 04/15/18 15:20 04/15/18 15:20 04/15/18 15:20 04/15/18 15:20 - Physical Exam General Appearance: Yes: Appropriately Dressed. No: Apparent Distress HEENT: positive: Normal Voice Neck: positive: Supple Respiratory/Chest: positive: Lungs Clear, Normal Breath Sounds. negative: Respiratory Distress Cardiovascular: positive: Regular Rate, S1, S2 Gastrointestinal/Abdominal: positive: Soft. negative: Tender Extremity: positive: Pedal Edema (trace pedal edema to b/l LE) Integumentary: positive: Dry, Warm Neurologic: positive: Fully Oriented, Alert, Normal Mood/Affect <Thomas Paris - Last Filed: 04/15/18 18:34> - Vital Signs Last Vital Signs Temp Pulse Resp BP Pulse Ox 98.7 F 71 18 126/63 99 04/15/18 15:20 04/15/18 15:20 04/15/18 15:20 04/15/18 15:20 04/15/18 15:20 <Nikia Kirk - Last Filed: 04/15/18 19:36> Moderate Sedation - Procedure Monitoring Vital Signs: Procedure Monitoring Vital Signs Temperature 98.7 F 04/15/18 15:20 Pulse Rate 71 04/15/18 15:20 Respiratory Rate 18 04/15/18 15:20 Blood Pressure 126/63 04/15/18 15:20 O2 Sat by Pulse Oximetry (%) 99 04/15/18 15:20 <Thomas Paris - Last Filed: 04/15/18 18:34> - Procedure Monitoring Vital Signs: Procedure Monitoring Vital Signs Temperature 98.7 F 04/15/18 15:20 Pulse Rate 71 04/15/18 15:20 Respiratory Rate 18 04/15/18 15:20 Blood Pressure 126/63 04/15/18 15:20 O2 Sat by Pulse Oximetry (%) 99 04/15/18 15:20 <Nikia Kirk - Last Filed: 04/15/18 19:36> ED Treatment Course - LABORATORY CBC & Chemistry Diagram: 04/15/18 15:45 04/15/18 16:30 <Thomas Paris - Last Filed: 04/15/18 18:34> - LABORATORY CBC & Chemistry Diagram: 04/15/18 15:45 04/15/18 16:30 - ADDITIONAL ORDERS Additional order review: Laboratory Results 04/15/18 04/15/18 04/15/18 16:30 16:30 15:45 Sodium 136 Potassium 3.9 Chloride 99 Carbon Dioxide 28 Anion Gap 9 BUN 17 Creatinine 1.2 Creat Clearance w eGFR 43.68 Random Glucose 286 H Calcium 8.9 Magnesium 2.3 Total Bilirubin 0.5 AST 23 ALT 30 Alkaline Phosphatase 132 H Creatine Kinase 166 Troponin I 0.03 B-Natriuretic Peptide 2332.6 H Cancelled Total Protein 7.0 Albumin 3.4 Lipase 80 Urine Color Urine Appearance Urine pH Ur Specific Shafer Urine Protein Urine Glucose (UA) Urine Ketones Urine Blood Urine Nitrite Urine Bilirubin Urine Urobilinogen Ur Leukocyte Esterase Urine WBC (Auto) Urine RBC (Auto) Ur Epithelial Cells Hyaline Casts Acetone, Qual Cancelled 04/15/18 04/15/18 15:45 15:31 Sodium Cancelled Potassium Cancelled Chloride Cancelled Carbon Dioxide Cancelled Anion Gap Cancelled BUN Cancelled Creatinine Cancelled Creat Clearance w eGFR Cancelled Random Glucose Cancelled Calcium Cancelled Magnesium Cancelled Total Bilirubin Cancelled AST Cancelled ALT Cancelled Alkaline Phosphatase Cancelled Creatine Kinase Cancelled Troponin I Cancelled B-Natriuretic Peptide Total Protein Cancelled Albumin Cancelled Lipase Cancelled Urine Color Ltyellow Urine Appearance Clear Urine pH 6.0 Ur Specific Shafer 1.014 Urine Protein 3+ H Urine Glucose (UA) 3+ H Urine Ketones Negative Urine Blood Negative Urine Nitrite Negative Urine Bilirubin Negative Urine Urobilinogen Negative Ur Leukocyte Esterase Negative Urine WBC (Auto) 4 Urine RBC (Auto) 1 Ur Epithelial Cells Rare Hyaline Casts 3 Acetone, Qual 04/15/18 15:45 RBC 3.65 MCV 82.2 MCHC 35.5 RDW 14.7 MPV 7.9 Neutrophils % 74.7 Lymphocytes % 16.0 Monocytes % 8.2 Eosinophils % 0.4 Basophils % 0.7 - Medications Given in the ED: ED Medications Discontinued Medications Generic Name Dose Route Start Last Admin Trade Name Gabriele PRN Reason Stop Dose Admin Ondansetron HCl 4 mg 04/15/18 15:20 04/15/18 16:04 Zofran Injection IVPUSH 04/15/18 15:21 4 mg ONCE ONE Administration <Nikia Kirk - Last Filed: 04/15/18 19:36> Medical Decision Making - Medical Decision Making 04/15/18 15:57 78 yo F, HTN, HLD, NIDDM, BIB daughter for n/v. Patient admits that she's had intermittent nausea and vomiting for 1 month that has not changed in baseline. Also reports vague upper abdominal pain. No change in bowel movements, fever, chills or unexplained weight loss. Unclear if patient has discussed this with her PMD, Dr. Espana. Per daughter, patient was seen in PMDs office several days ago when blood sugar was found to be in the 400s and blood pressure elevated. Patient was treated in office and had bystolic dose increased at home. At the time of office visit, PMD was concerned about patient's bilateral lower extremity edema that has been present 2 months and as per daughter, Adeola , wanted patient to come to the ED to rule out new onset heart failure. Patient without any shortness of breath or chest pain at this time See exam Recurrent n/v and upper abd pain ACS vs gastritis/GERD vs biliary, unlikely pancreatic -zofran -IVF -ekg/labs -reassess 04/15/18 17:53 Pt improved with meds and able to tolerate po. EKG/labs unremarkable except for a BNP >2000. Has been elevated in past. Chest x-ray clear and no chest pain or shortness of breath to suggest acute decompensated CHF. Patient stable to be discharged to follow-up with PMD as per d/w Dr Kirk 04/15/18 18:34 <Thomas Paris - Last Filed: 04/15/18 18:34> - Medical Decision Making The patient was seen and evaluated in conjunction with midlevel provider under my direct supervision, ancillary studies were reviewed. I agree with the plan as outlined by JANNA Paris. HPI, workup/dispo as outlined. discussion with family member and patient at bedside here primarily for abdominal pain and vomiting. on protonix already. could be gastritis vs PUD vs GERD, lungs clear, no distress. RRR. abdomen soft, NTND. no rebound or guarding. bilateral LE edema noted, no calf tenderness. WWP. well appearing. labs and lytes reviewed, neg trop, unlikely cardiac. normal LFTs/lipase. bnp elevated, with prior elevations. without clear lung/cardiac findings, doubt CHF without respiratory distress or cp/sob. also can be elevated chronically and nonspecific findings. doubt PE. baseline anemia. supportive care, change in medications/diuretics to be discussed with primary doctor, Dr. Espana group also has home health aid and good supportive care no recent falls prompting today's visit. ambulatory here, with assistance. no indication for admission, as mostly chronic findings and vitals normal/reassuring picture with possible consultation with GI/Cards as outpatient for further workup of AP and leg edema/ respectively. 04/15/18 17:52 04/15/18 19:33 <Nikia Kirk - Last Filed: 04/15/18 19:36> *DC/Admit/Observation/Transfer <Thomas Paris - Last Filed: 04/15/18 18:34> <Nikia Kirk - Last Filed: 04/15/18 19:36> Diagnosis at time of Disposition: Chronic edema Vomiting Qualifiers: Vomiting type: unspecified Vomiting Intractability: non-intractable Nausea presence: with nausea Qualified Code(s): R11.2 - Nausea with vomiting, unspecified - Discharge Dispostion Disposition: HOME Condition at time of disposition: Improved - Prescriptions Prescriptions: Ondansetron HCl [Zofran] 4 mg PO Q6H #15 tablet - Referrals Referrals: Ro Espana MD [Primary Care Provider] - - Patient Instructions Additional Instructions: Your blood pressure was normal here and your sugar was 286. Continue your meds at home. Please follow-up with your PMD for further management of your chronic condition including continued assessment of your bilateral lower extremity swelling for Your nausea and vomiting is unclear but could be due to gastritis. Take zofran as needed for nausea, vomiting and follow-up with your PMD for further evaluation and possible GI consult
[2018-04-15] MEDS ORDERED: SODIUM CHLORIDE 500 ML IV STA (16:01)
[2018-04-15 16:03] LABS: BASO % 0.7 % (0-2.0); EOS % 0.4 % (0-4.5); HEMOGLOBIN 10.6 GM/dL (10.7-15.3); MCH 29.2 pg (25.7-33.7); MCHC 35.5 g/dl (32.0-36.0); MEAN CELL VOLUME 82.2 fl (80-96); MEAN PLT VOLUME 7.9 fl (7.5-11.1); MONO % 8.2 % (3.8-10.2); NEUT % 74.7 % (42.8-82.8); PLATELET COUNT 377 K/MM3 (134-434); RBC 3.65 M/mm3 (3.60-5.2); RDW 14.7 % (11.6-15.6); WHITE BLOOD COUNT 9.8 K/mm3 (4.0-10.0)
[2018-04-15 16:06] LABS: URINE APPEARANCE CLEAR; URINE BILIRUBIN NEGATIVE (<2.0 mg/dL); URINE COLOR LTYELLOW; URINE GLUCOSE (UA) 3+ (NEGATIVE); URINE KETONE NEGATIVE (NEGATIVE); URINE LEUK ESTERASE NEGATIVE (NEGATIVE); URINE NITRITE NEGATIVE (NEGATIVE); URINE PROTEIN 3+ (NEGATIVE); URINE UROBILINOGEN NEGATIVE mg/dL (0.2-1.0)
[2018-04-15 16:11] LABS: EPI CELLS RARE /HPF (FEW); URINE HYALINE CAST 3 /lpf
[2018-04-15 17:47] LABS: ALBUMIN 3.4 g/dl (3.4-5.0); ALK PHOS 132 U/L (45-117); ANION GAP 9 MMOL/L (8-16); BILIRUBIN,TOTAL 0.5 mg/dL (0.2-1); BLOOD UREA NITROGEN 17 mg/dL (7-18); CALCIUM 8.9 mg/dL (8.5-10.1); CHLORIDE 99 mmol/L (98-107); CO2 28 mmol/L (21-32); CREATININE 1.2 mg/dL (0.55-1.3); GLUCOSE,RANDOM 286 mg/dL (74-106); LIPASE 80 U/L (73-393); MAGNESIUM 2.3 mg/dL (1.8-2.4); N-TERMINAL BNP 2332.6 pg/ml (5-450); POTASSIUM 3.9 mmol/L (3.5-5.1); SGOT/AST 23 U/L (15-37); SGPT/ALT 30 U/L (13-61); SODIUM 136 mmol/L (136-145)
[2018-04-15 19:04] LABS: ACETONE SERUM NEGATIVE (NEGATIVE)
--- NOTE | 2018-04-16 13:16 | EKG ---
Test Reason : Blood Pressure : / mmHG Vent. Rate : 072 BPM Atrial Rate : 072 BPM P-R Int : 176 ms QRS Dur : 116 ms QT Int : 398 ms P-R-T Axes : 034 -44 078 degrees QTc Int : 435 ms NORMAL SINUS RHYTHM LEFT AXIS DEVIATION LEFT VENTRICULAR HYPERTROPHY WITH QRS WIDENING AND REPOLARIZATION ABNORMALITY ABNORMAL ECG WHEN COMPARED WITH ECG OF 03-FEB-2018 04:11, NO SIGNIFICANT CHANGE WAS FOUND Confirmed by BRANDIN MOYA MD ([id number]) on 04/16/2018 1:16:02 PM Referred By: Confirmed By:BRANDIN MOYA MD
== END 2018-04-15 18:40 | disposition home or self-care (01) ==
LOC: JER 14:32
PROC: 3E033GC Introduction of Other Therapeutic Substance into Peripheral Vein, Percutaneous Approach (ICD-10-PCS; principal; 2018-04-15)
DX: R60.0 Localized edema (principal); R10.10 Upper abdominal pain, unspecified; I10 Essential (primary) hypertension; E11.9 Type 2 diabetes mellitus without complications; Z79.84 Long term (current) use of oral hypoglycemic drugs; E78.00 Pure hypercholesterolemia, unspecified
CPT/HCPCS: 36415; 71045-TC-FY; 80053; 81003; 81015; 82009; 82550; 82553; 83690; 83735; 83880; 84484; 85025; 87086; 87186; 93005; 93010; 96374; 99284-25

== ENCOUNTER 2018-04-21 09:02 | Inpatient (IN) | payer OTHER ==
--- NOTE | 2018-04-21 09:22 | PDOC ---
History of Present Illness - General Chief Complaint: Lightheaded Stated Complaint: DIZZINESS Time Seen by Provider: 04/21/18 09:22 - History of Present Illness Initial Comments: 04/21/18 09:56 Ms. Cole is a 78 yo female w/pmh of HTN, HLD, DM, diverticulosis, colonic/ uterine polyps, urinary incontinence who presents to the ED with comments of 2 month history of abdominal pain with nausea and vomiting forcing her to eat very little over this time period. Patient reports she has additionally had lightheaded feeling dizzy over this time period and had frequent falls because of it. Patient further reports she has had significant constipation forcing her to take stool softeners (which has allowed her to defecate at her normal level) . Of note, patient has had multiple abdominal surgeries including , open appendectomy and cholecystectomy, and subsequent plastic surgery that subsequently necrosed requiring admission. The patient denies chest pain, shortness of breath, and headache. Denies fever, chills, and diarrhea. Denies dysuria, frequency, urgency and hematuria. Past History - Past Medical History Allergies/Adverse Reactions: Allergies Allergy/AdvReac Type Severity Reaction Status Date / Time valsartan [From AirXpandersvan] Allergy Mild Verified 04/21/18 09:15 Home Medications: Ambulatory Orders Aspirin [ASA -] 81 mg PO DAILY 09/09/15 Olmesartan/Hydrochlorothiazide [Benicar Hct 40-12.5MG Tab -] 1 tab PO DAILY Multivitamins [Multivit ([facility] Formulary)] 1 tab PO DAILY tab 08/19/17 Ondansetron [Zofran Odt -] 4 mg SL TID PRN #9 od.tablet 12/03/17 Donepezil HCl 10 mg PO DAILY 02/01/18 Metoclopramide HCl 5 mg PO DAILY 02/01/18 Pramipexole Di-HCl [Pramipexole Dihydrochloride] 1 mg PO HS 02/01/18 Rosuvastatin [Crestor -] 10 mg PO HS 02/01/18 Insulin Glargine,Hum.rec.anlog [Lantus (10mL VIAL) -] 28 units SQ ACBK 02/02/18 Bupropion HCl [Wellbutrin Xl -] 150 mg PO DAILY #30 tab.sr.24h 02/09/18 Divalproex [Depakote -] 250 mg PO DAILY tablet.ec 02/09/18 Nifedipine ER [Procardia XL -] 60 mg PO DAILY #30 tab.er.24 02/09/18 Pantoprazole Sodium [Protonix -] 40 mg PO DAILY #30 tablet.ec 02/09/18 Polyethylene Glycol 3350 [Miralax 119 gm Btl -] 17 gm PO BID bottle 02/09/18 Nitrofurantoin Monohyd/M-Cryst [Nitrofurantoin [place]-Mcr 100 mg] 100 mg PO BID 7 Days #14 capsule 04/19/18 Anemia: No Asthma: No Cancer: No Cardiac Disorders: No CVA: No COPD: No CHF: No DVT: No Dementia: No Diabetes: Yes GI Disorders: Yes (DIVERTICULOSIS,COLONIC POLYPS,HEMORRHOIDS,) Disorders: Yes (UTERINE POLYPS,URINARY INCONTINENCE) HTN: Yes Hypercholesterolemia: Yes Liver Disease: No Seizures: No Thyroid Disease: No - Surgical History Abdominal Surgery: Yes Appendectomy: Yes Cardiac Surgery: No Cholecystectomy: Yes Lung Surgery: No Neurologic Surgery: No Orthopedic Surgery: No - Suicide/Smoking/Psychosocial Hx Smoking Status: No Smoking History: Never smoked Have you smoked in the past 12 months: No Number of Cigarettes Smoked Daily: 0 Hx Alcohol Use: No Drug/Substance Use Hx: No Substance Use Type: None Hx Substance Use Treatment: No Review of Systems - Review of Systems Comments:: 04/21/18 10:00 GENERAL/CONSTITUTIONAL: No fever or chills. No weakness. HEAD, EYES, EARS, NOSE AND THROAT: No change in vision. No ear pain or discharge. No sore throat. CARDIOVASCULAR: No chest pain or shortness of breath RESPIRATORY: No cough, wheezing, or hemoptysis. GASTROINTESTINAL: +N/V/constipation as described. Generalized abdominal pain. GENITOURINARY: No dysuria, frequency, or change in urination. MUSCULOSKELETAL: No joint or muscle swelling or pain. No neck or back pain. SKIN: No rash NEUROLOGIC: No headache, vertigo, loss of consciousness, or change in strength/ sensation. ENDOCRINE: No increased thirst. No abnormal weight change HEMATOLOGIC/LYMPHATIC: No anemia, easy bleeding, or history of blood clots. ALLERGIC/IMMUNOLOGIC: No hives or skin allergy. *Physical Exam - Vital Signs Last Vital Signs Temp Pulse Resp BP Pulse Ox 98.5 F 71 18 214/71 H 97 04/21/18 09:03 04/21/18 09:03 04/21/18 09:03 04/21/18 09:03 04/21/18 09:03 - Physical Exam Comments: 04/21/18 10:01 GENERAL: Awake, alert, and fully oriented, in no acute distress HEAD: No signs of trauma, normocephalic, atraumatic EYES: PERRLA, EOMI, sclera anicteric, conjunctiva clear ENT: Auricles normal inspection, hearing grossly normal, nares patent, oropharynx clear without exudates. Moist mucosa NECK: Normal ROM, supple, no lymphadenopathy, JVD, or masses LUNGS: No distress, speaks full sentences, clear to auscultation bilaterally HEART: Regular rate and rhythm, normal S1 and S2, no murmurs, rubs or gallops, peripheral pulses normal and equal bilaterally. ABDOMEN: +Generalized abdominal TTP. Impressive scarring from previous procedures noted. Soft, normoactive bowel sounds. No guarding, no rebound. No masses EXTREMITIES: +1+ Pedal edema HOLLEY. Otherwise normal inspection, normal range of motion, no edema. No clubbing or cyanosis. NEUROLOGICAL: Cranial nerves II through XII grossly intact. Normal speech, normal gait, no focal sensorimotor deficits SKIN: Warm, Dry, normal turgor, no rashes or lesions noted. Moderate Sedation - Procedure Monitoring Vital Signs: Procedure Monitoring Vital Signs Temperature 98.5 F 04/21/18 09:03 Pulse Rate 71 04/21/18 09:03 Respiratory Rate 18 04/21/18 09:03 Blood Pressure 214/71 H 04/21/18 09:03 O2 Sat by Pulse Oximetry (%) 97 04/21/18 09:03 ED Treatment Course - LABORATORY CBC & Chemistry Diagram: 04/21/18 10:15 04/21/18 09:46 Medical Decision Making - Medical Decision Making 04/21/18 11:16 Ms. Cole is a 78 yo female w/ pmh as described who presents for evaluation of abdominal pain in the setting of multiple previous abdominal surgeries. Patient likewise noted to have grossly elevated BP to 214/71. Workup started with CT as well as labs as below. 04/21/18 11:41 GFR noted to be decreased as below however given normal Cr will hydrate patient and proceed with CT with IV contrast. Discussed risks and benefits with patient who agrees. Will hydrate patient prophylactically as well. 04/21/18 13:05 Patient labs significant for hypervolemia as below as well as hyperglycemia. Patient CT's negative for acute process however given patient's frequent falls and failure to thrive symptoms will bring in for further evaluation. Discussed with inpatient team who will admit. Laboratory Results - last 24 hr 04/21/18 04/21/18 04/21/18 09:46 09:46 10:15 WBC 10.1 H RBC 4.03 Hgb 11.4 Hct 32.7 MCV 81.1 MCH 28.3 MCHC 35.0 RDW 15.3 Plt Count 433 MPV 7.7 Absolute Neuts (auto) 8.0 Neutrophils % 78.6 Lymphocytes % 12.1 D Monocytes % 7.5 Eosinophils % 1.3 D Basophils % 0.5 Nucleated RBC % 0 PT with INR INR PTT (Actin FS) Sodium 131 L Potassium 3.4 L Chloride 91 L Carbon Dioxide 31 Anion Gap 9 BUN 17 Creatinine 1.3 Creat Clearance w eGFR 39.82 Random Glucose 421 H* Lactic Acid 2.0 Calcium 9.4 Total Bilirubin 0.8 AST 20 ALT 26 Alkaline Phosphatase 145 H Creatine Kinase 151 Creatine Kinase Index 1.5 CK-MB (CK-2) 2.3 Troponin I 0.04 B-Natriuretic Peptide 2425.2 H Total Protein 7.2 Albumin 3.4 Urine Color Urine Appearance Urine pH Ur Specific [place] Urine Protein Urine Glucose (UA) Urine Ketones Urine Blood Urine Nitrite Urine Bilirubin Urine Urobilinogen Ur Leukocyte Esterase Urine WBC (Auto) Urine RBC (Auto) Ur Epithelial Cells Urine Bacteria Blood Type Antibody Screen 04/21/18 04/21/18 04/21/18 10:15 10:15 10:35 WBC RBC Hgb Hct MCV MCH MCHC RDW Plt Count MPV Absolute Neuts (auto) Neutrophils % Lymphocytes % Monocytes % Eosinophils % Basophils % Nucleated RBC % PT with INR 11.60 INR 0.98 PTT (Actin FS) 27.9 Sodium Potassium Chloride Carbon Dioxide Anion Gap BUN Creatinine Creat Clearance w eGFR Random Glucose Lactic Acid Calcium Total Bilirubin AST ALT Alkaline Phosphatase Creatine Kinase Creatine Kinase Index CK-MB (CK-2) Troponin I B-Natriuretic Peptide Total Protein Albumin Urine Color Yellow Urine Appearance Clear Urine pH 7.0 Ur Specific [place] 1.015 Urine Protein 2+ H Urine Glucose (UA) 2+ H Urine Ketones Negative Urine Blood Trace-lysed H Urine Nitrite Negative Urine Bilirubin Negative Urine Urobilinogen 0.2 Ur Leukocyte Esterase Negative Urine WBC (Auto) 0-3 Urine RBC (Auto) 0-3 Ur Epithelial Cells 1+ Urine Bacteria 1+ Blood Type A POSITIVE Antibody Screen Negative *DC/Admit/Observation/Transfer Diagnosis at time of Disposition: Frequent falls Abdominal pain Qualifiers: Abdominal location: unspecified location Qualified Code(s): R10.9 - Unspecified abdominal pain Nausea and vomiting Qualifiers: Vomiting type: unspecified Vomiting Intractability: unspecified Qualified Code( s): R11.2 - Nausea with vomiting, unspecified Failure to thrive Qualifiers: Failure to thrive age range: in adult Qualified Code(s): R62.7 - Adult failure to thrive Hypervolemia Qualifiers: Hypervolemia type: unspecified Qualified Code(s): E87.70 - Fluid overload, unspecified - Discharge Dispostion Decision to Admit order: Yes - Referrals - Patient Instructions - Post Discharge Activity
--- NOTE | 2018-04-21 09:30 | PDOC ---
Attending Attestation - Resident Resident Name: Eleazar Ochoa - ED Attending Attestation I have performed the following: I have examined & evaluated the patient, The case was reviewed & discussed with the resident, I agree w/resident's findings & plan, Exceptions are as noted - HPI HPI: 04/21/18 09:34 Ms Cole is a 77 yo F with a history of IDDM, HTN, HLD, arthritis, anxiety She presents to the ER with her daughter due to dizziness, recurrent falls, difficulty standing, frequent and excessive urination Pt was also noted today to have abdominal pain and diarrhea Pt states she is lightheaded but it worsens when she turns her head No headache No focal weakness or numbness No fevers or chills No chest pain 04/21/18 11:44 - Physicial Exam PE: 04/21/18 11:38 Pt examination significant for: Alert, answers questions appropriately Very dry mucous membranes RRR CTA No abd tenderness at this time - Medical Decision Making 04/21/18 10:18 DD is broad and includes: (lightheadedness) CVA/TIA, ACS, Arrhythmia, dehydration, Renal insufficiency, UA , Hyperglycemia (abd pain) colitis, diverticulitis, Will do: Labs EKG Head CT Abd CT IV fluids BP control EKG - NSR rate of 78 bpm, Left axis deviation, LVH, intervals: pr- 162ms, QRS: 114ms, QTc: 478ms, no st elevation or depression, prominent st segment v3, v4 04/21/18 11:38 Laboratory Tests 04/21/18 04/21/18 09:46 10:15 WBC 10.1 H Hgb 11.4 Hct 32.7 Plt Count 433 Sodium 131 L Potassium 3.4 L Chloride 91 L Carbon Dioxide 31 BUN 17 Creatinine 1.3 Random Glucose 421 H* Creatine Kinase Index 1.5 CK-MB (CK-2) 2.3 Troponin I 0.04 B-Natriuretic Peptide 2425.2 H 04/21/18 11:38 04/21/18 11:41 Pt labs significant for hyperglycemia, resultant hypokalemia, hyponatremia Hyperglycemia - Insulin sq Hypokalemia - po and IV potassium Dizziness/vertigo - will give Meclizine 04/21/18 11:43 CT head and C spine pending CT abd pending 04/21/18 11:45 Admit
[2018-04-21] MEDS ORDERED: ONDANSETRON 4 MG/2 ML VIAL IVPUSH ONE (09:48)
[2018-04-21] MEDS ORDERED: ACETAMINOPHEN 1000 MG/100 ML VIAL (NON FORMULARY) IVPB ONE (09:48)
[2018-04-21 10:38] LABS: BASO % 0.5 % (0-2.0); EOS % 1.3 % (0-4.5); HEMATOCRIT 32.7 % (32.4-45.2); HEMOGLOBIN 11.4 GM/dL (10.7-15.3); LYMPH % 12.1 % (8-40); MCH 28.3 pg (25.7-33.7); MEAN CELL VOLUME 81.1 fl (80-96); MEAN PLT VOLUME 7.7 fl (7.5-11.1); MONO % 7.5 % (3.8-10.2); NEUT % 78.6 % (42.8-82.8); PLATELET COUNT 433 K/MM3 (134-434); RBC 4.03 M/mm3 (3.60-5.2); RDW 15.3 % (11.6-15.6); WHITE BLOOD COUNT 10.1 K/mm3 (4.0-10.0)
[2018-04-21] MEDS ORDERED: ONDANSETRON 4 MG/2 ML VIAL ONE (10:49)
[2018-04-21] MEDS ORDERED: ACETAMINOPHEN INJECTION 100 ML IVPB ONE (10:49)
[2018-04-21 11:07] LABS: ALBUMIN 3.4 g/dl (3.4-5.0); ALK PHOS 145 U/L (45-117); ANION GAP 9 MMOL/L (8-16); BILIRUBIN,TOTAL 0.8 mg/dL (0.2-1); BLOOD UREA NITROGEN 17 mg/dL (7-18); CALCIUM 9.4 mg/dL (8.5-10.1); CHLORIDE 91 mmol/L (98-107); CO2 31 mmol/L (21-32); CREATININE 1.3 mg/dL (0.55-1.3); N-TERMINAL BNP 2425.2 pg/ml (5-450); POTASSIUM 3.4 mmol/L (3.5-5.1); SGOT/AST 20 U/L (15-37); SGPT/ALT 26 U/L (13-61); SODIUM 131 mmol/L (136-145); TOT PROT 7.2 g/dl (6.4-8.2)
[2018-04-21 11:08] LABS: GLUCOSE,RANDOM 421 mg/dL (74-106)
[2018-04-21] MEDS ORDERED: INSULIN REGULAR HUMAN 100 UNITS/ML *VIAL SQ ONE (11:40)
[2018-04-21] MEDS ORDERED: LABETALOL HCL 5 MG/1 ML (100MG/20 ML VIAL) IVPUSH ONE (11:41)
[2018-04-21] MEDS ORDERED: POTASSIUM CHLORIDE TABS 20 MEQ TABLET.ER (FP) PO ONE ×2 (11:42→12:02)
[2018-04-21] MEDS ORDERED: MECLIZINE HCL 25 MG TABLET (FP) PO ONE (11:44)
[2018-04-21] MEDS ORDERED: KCL 10 MEQ IVPB 10 MEQ/100 ML INFUS.BAG IVPB SCH (11:45)
[2018-04-21 11:54] LABS: URINE APPEARANCE Clear; URINE BILIRUBIN Negative (<2.0 mg/dL); URINE COLOR Yellow; URINE GLUCOSE (UA) 2+ (NEGATIVE); URINE KETONE Negative (NEGATIVE); URINE LEUK ESTERASE Negative (NEGATIVE); URINE NITRITE Negative (NEGATIVE); URINE PROTEIN 2+ (NEGATIVE); URINE UROBILINOGEN 0.2 mg/dL (0.2-1.0)
[2018-04-21] MEDS ORDERED: KCL 10 MEQ IVPB 10 MEQ/100 ML INFUS.BAG IVPB ONE (11:54)
[2018-04-21] MEDS ORDERED: MECLIZINE HCL 25 MG TABLET (FP) ONE (11:54)
[2018-04-21] MEDS ORDERED: INSULIN NPH 100 UNITS/ML *VIAL ONE (11:54)
[2018-04-21 12:53] LABS: INR 0.98 (0.83-1.09); PROTHROMBIN TIME (PATIENT) 11.6 SEC (9.7-13.0)
[2018-04-21 12:55] LABS: ACTIVATED PTT 27.9 SECONDS (25.2-36.5)
[2018-04-21 13:01] LABS: EPI CELLS 1+ /HPF (FEW); URINE BACTERIA 1+ /hpf (NONE SEEN)
[2018-04-21] MEDS ORDERED: ONDANSETRON 4 MG/2 ML VIAL IVPUSH PRN (13:52)
--- NOTE | 2018-04-21 14:09 | HP ---
Admitting History and Physical - Primary Care Physician PCP: Nahomi Nguyen I - Admission Chief Complaint: decrease po intake nad weakness History of Present Illness: Ms. Cole is a 78 yo female w/pmh of HTN, HLD, DM, diverticulosis, colonic/ uterine polyps, urinary incontinence who presents to the ED with comments of 2 month history of abdominal pain with nausea and vomiting forcing her to eat very little over this time period. Patient reports she has additionally had lightheaded feeling dizzy over this time period and had frequent falls because of it. Patient further reports she has had significant constipation forcing her to take stool softeners (which has allowed her to defecate at her normal level) . Of note, patient has had multiple abdominal surgeries including , open appendectomy and cholecystectomy, and subsequent plastic surgery that subsequently necrosed requiring admission. 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: Dementia, Peripheral Neuropathy, Parkinson's Cardiovascular: Yes: HTN, Hyperlipdemia Gastrointestinal: Yes: Diverticulosis Musculoskeletal: Yes: Osteoarthritis Endocrine: Yes: Diabetes Mellitus - Past Surgical History Past Surgical History: Yes: Appendectomy, Cholecystectomy, - Smoking History Smoking history: Never smoked Have you smoked in the past 12 months: No Aproximately how many cigarettes per day: 0 - Alcohol/Substance Use Hx Alcohol Use: No - Social History History of Recent Travel: No Home Medications - Allergies Allergies/Adverse Reactions: Allergies Allergy/AdvReac Type Severity Reaction Status Date / Time valsartan [From Crambuvan] Allergy Mild Verified 04/21/18 09:15 - Home Medications Home Medications: Ambulatory Orders Aspirin [ASA -] 81 mg PO DAILY 09/09/15 Olmesartan/Hydrochlorothiazide [Benicar Hct 40-12.5MG Tab -] 1 tab PO DAILY Multivitamins [Multivit ([facility] Formul[facility])] 1 tab PO DAILY tab 08/19/17 Ondansetron [Zofran Odt -] 4 mg SL TID PRN #9 od.tablet 12/03/17 Donepezil HCl 10 mg PO DAILY 02/01/18 Metoclopramide HCl 5 mg PO DAILY 02/01/18 Pramipexole Di-HCl [Pramipexole Dihydrochloride] 1 mg PO HS 02/01/18 Rosuvastatin [Crestor -] 10 mg PO HS 02/01/18 Insulin Glargine,Hum.rec.anlog [Lantus (10mL VIAL) -] 28 units SQ ACBK 02/02/18 Bupropion HCl [Wellbutrin Xl -] 150 mg PO DAILY #30 tab.sr.24h 02/09/18 Divalproex [Depakote -] 250 mg PO DAILY tablet.ec 02/09/18 Nifedipine ER [Procardia XL -] 60 mg PO DAILY #30 tab.er.24 02/09/18 Pantoprazole Sodium [Protonix -] 40 mg PO DAILY #30 tablet.ec 02/09/18 Polyethylene Glycol 3350 [Miralax 119 gm Btl -] 17 gm PO BID bottle 02/09/18 Nitrofurantoin Monohyd/M-Cryst [Nitrofurantoin [place]-Mcr 100 mg] 100 mg PO BID 7 Days #14 capsule 04/19/18 Review of Systems - Review of Systems Gastrointestinal: reports: Abdominal Pain Physical Examination Vital Signs: Vital Signs Temperature 98.5 F 04/21/18 09:03 Pulse Rate 71 04/21/18 09:03 Respiratory Rate 18 04/21/18 09:03 Blood Pressure 214/71 H 04/21/18 09:03 O2 Sat by Pulse Oximetry (%) 97 04/21/18 09:03 Constitutional: Yes: Calm, Thin Cardiovascular: Yes: Regular Rate and Rhythm, S1, S2 Respiratory: Yes: CTA Bilaterally Gastrointestinal: Yes: Hypoactive Bowel Sounds, Tenderness, Epigastrium, Other ( surgical scars) Edema: Yes Neurological: Yes: Alert, Oriented Labs: CBC, BMP 04/21/18 10:15 04/21/18 09:46 Imaging - Results Cat Scan: Report Reviewed (no obstruction) Problem List - Problems (1) Abdominal pain Assessment/Plan: NPO ivf dr areli ruiz Code(s): R10.9 - UNSPECIFIED ABDOMINAL PAIN Qualifiers: Abdominal location: unspecified location Qualified Code(s): R10.9 - Unspecified abdominal pain (2) Frequent falls Assessment/Plan: PMR consult PT dvt ppx meclizine prn b12 rpr neurology Code(s): R29.6 - REPEATED FALLS (3) HTN (hypertension) Assessment/Plan: cardiology eval Code(s): I10 - ESSENTIAL (PRIMARY) HYPERTENSION (4) Diabetes Assessment/Plan: sliding scale [id number] ivf for now Code(s): E11.9 - TYPE 2 DIABETES MELLITUS WITHOUT COMPLICATIONS Qualifiers: Diabetes mellitus type: type 2
--- NOTE | 2018-04-21 14:12 | EKG ---
Test Reason : Blood Pressure : / mmHG Vent. Rate : 078 BPM Atrial Rate : 078 BPM P-R Int : 162 ms QRS Dur : 114 ms QT Int : 420 ms P-R-T Axes : 029 -45 108 degrees QTc Int : 478 ms SINUS RHYTHM WITH OCCASIONAL PREMATURE VENTRICULAR COMPLEXES POSSIBLE LEFT ATRIAL ENLARGEMENT LEFT ANTERIOR FASCICULAR BLOCK LEFT VENTRICULAR HYPERTROPHY WITH REPOLARIZATION ABNORMALITY ABNORMAL ECG WHEN COMPARED WITH ECG OF 15-APR-2018 15:27, PREMATURE VENTRICULAR COMPLEXES ARE NOW PRESENT Confirmed by JAZMYN CARRIZALES MD ([id number]) on 04/21/2018 2:11:52 PM Referred By: Confirmed By:JAZMYN CARRIZALES MD
[2018-04-21] MEDS ORDERED: SODIUM CHLORIDE 1,000 ML IV SCH (14:15)
--- NOTE | 2018-04-21 15:40 | CON.CARD ---
Consult Consult Specialty:: Cardiology Referred by:: Dr. Mulligan Reason for Consultation:: HTN - History of Present Illness Chief Complaint: abdominal pain, nausea, vomiting History of Present Illness: 78 year old woman with pmh HTN, HLD, DM, diverticulosis, colonic/uterine polyps , urinary incontinence, multiple prior abdominal surgeries, prior admissions for abdominal pain, nausea, vomiting, now again admitted for abdominal pain, nausea, vomiting as well as lightheadedness, dizziness, and frequent falls. Pt seen and examined today in nad. currently asymptomatic. states she has trouble tolerating food or water at home. states that she does take her medications as prescribed including her HTN meds. Notes b/l LE edema as well. Denies chest pain, sob, palpitations. No pnd, orthopnea. 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, Peripheral Neuropathy, Parkinson's Cardio/Vascular: Yes: HTN, Hyperlipdemia Gastrointestinal: Yes: Diverticulosis Musculoskeletal: Yes: Osteoarthritis Endocrine: Yes: Diabetes Mellitus - Past Surgical History Past Surgical History: Yes: Appendectomy, Cholecystectomy, - Alcohol/Substance Use Hx Alcohol Use: No - Smoking History Smoking history: Never smoked Have you smoked in the past 12 months: No Aproximately how many cigarettes per day: 0 - Social History Usual Living Arrangement: With Significant Other History of Recent Travel: No Home Medications - Allergies Allergies/Adverse Reactions: Allergies Allergy/AdvReac Type Severity Reaction Status Date / Time valsartan [From Diovan] Allergy Mild Verified 04/21/18 09:15 - Home Medications Home Medications: Ambulatory Orders Aspirin [ASA -] 81 mg PO DAILY 09/09/15 Olmesartan/Hydrochlorothiazide [Benicar Hct 40-12.5MG Tab -] 1 tab PO DAILY Multivitamins [Multivit ([facility] Form[facility])] 1 tab PO DAILY tab 08/19/17 Ondansetron [Zofran Odt -] 4 mg SL TID PRN #9 od.tablet 12/03/17 Donepezil HCl 10 mg PO DAILY 02/01/18 Metoclopramide HCl 5 mg PO DAILY 02/01/18 Pramipexole Di-HCl [Pramipexole Dihydrochloride] 1 mg PO HS 02/01/18 Rosuvastatin [Crestor -] 10 mg PO HS 02/01/18 Insulin Glargine,Hum.rec.anlog [Lantus (10mL VIAL) -] 28 units SQ ACBK 02/02/18 Bupropion HCl [Wellbutrin Xl -] 150 mg PO DAILY #30 tab.sr.24h 02/09/18 Divalproex [Depakote -] 250 mg PO DAILY tablet.ec 02/09/18 Nifedipine ER [Procardia XL -] 60 mg PO DAILY #30 tab.er.24 02/09/18 Pantoprazole Sodium [Protonix -] 40 mg PO DAILY #30 tablet.ec 02/09/18 Polyethylene Glycol 3350 [Miralax 119 gm Btl -] 17 gm PO BID bottle 02/09/18 Nitrofurantoin Monohyd/M-Cryst [Nitrofurantoin [place]-Mcr 100 mg] 100 mg PO BID 7 Days #14 capsule 04/19/18 Family Disease History - Family Disease History Family History: Denies Review of Systems - Review of Systems Constitutional: denies: No Symptoms, Chills, Diaphoresis, Fever, Lethargy, Loss of Appetite, Malaise, Night Sweats, Unintentional Wgt. Loss, Weakness, Other Eyes: denies: No Symptoms, Blind Spots, Blurred Vision, Double Vision, Eye Pain , Floaters, Photophobia, Recent Change in Vision, Other HENT: denies: No Symptoms, Difficult Swallowing, Ear Discharge, Ear Pain, Epistaxis, Gingival Bleeding, Hearing Loss, Mouth Swelling, Nasal Congestion, Ocular Prosthesis, Throat Pain, Toothache, Ringing in Ears, Other Neck: denies: No Symptoms, Decreased ROM, Lumps, Pain on Movement, Stiffness, Swollen Glands, Tenderness, Other Cardiovascular: denies: No Symptoms, Chest Pain, Edema, Palpitations, Shortness of Breath, Other Respiratory: denies: No Symptoms, Cough, Exercise Intolerance, Hemoptysis, Orthopnea, PND, Snoring, SOB, SOB on Exertion, Wheezing, Other Gastrointestinal: reports: Abdominal Pain, Nausea, Vomiting. denies: No Symptoms, Bloating, Constipation, Diarrhea, Dysphagia, Indigestion, Melena, Rectal Bleeding, Vomiting Blood, Other Genitourinary: denies: No Symptoms, Burning, Discharge, Dysuria, Flank Pain, Frequency, Hematuria, Incontinence, Lesions, Menses, Pain, Testicular Mass, Testicular Pain, Testicular Swelling, Urgency, Vaginal Bleeding, Other Breasts: denies: No Symptoms Reported, See HPI, Breast Implants, Discharge from Nipple, Lumps, Pain, Skin Changes, Other Musculoskeletal: denies: No Symptoms, Back Pain, Crepitus, Decreased ROM, Extremity Pain, Joint Pain, Joint Swelling, Muscle Pain, Muscle Cramps, Muscle Weakness, Other Integumentary: denies: No Symptoms, Blister, Bruising, Change in Color, Eczema, Erythema, Incision, Lesions, Lump, Pallor, Pruritis, Rash, Wound, Other Neurological: denies: No Symptoms, Change in LOC, Change in Speech, Confusion, Dizziness, Headache, Incoordination, Numbness, Parasthesia, Pre-Existing Deficit , Seizure, Syncope, Tremors, Unsteady Gait, Weakness, Other Endocrine: denies: No Symptoms, Excessive Sweating, Flushing, Increased Hunger, Increased Thirst, Intolerance to Cold, Intolerance to Heat, Unexplained Weight Gain, Unexplained Weight Loss, Other Hematology/Lymphatic: denies: No Symptoms, Easily Bruised, Excessive Bleeding, Swollen Glands, Other Psychiatric: denies: No Symptoms, Altered Sleep Pattern, Anxiety, Depression, Hallucinations, Panic, Paranoia, Suicidal, Other - Risk Factors Known Risk Factors: Yes: Hypercholesterolemia, Hypertension Vital Signs: Vital Signs Temperature 98.5 F 04/21/18 09:03 Pulse Rate 60 04/21/18 14:30 Respiratory Rate 18 04/21/18 14:30 Blood Pressure 159/47 L 04/21/18 14:30 O2 Sat by Pulse Oximetry (%) 99 04/21/18 14:30 Constitutional: Yes: No Distress, Calm Eyes: Yes: Conjunctiva Clear, EOM Intact, PERRL HENT: Yes: Atraumatic, Normocephalic Neck: Yes: Supple, Trachea Midline Respiratory: Yes: Regular, CTA Bilaterally Gastrointestinal: Yes: Normal Bowel Sounds, Soft, Tenderness. No: Distention Cardiovascular: Yes: Regular Rate and Rhythm. No: Bradycardia, Tachycardia, Pulse Irregular, Gallop, Rub, Varicosities JVD: No Carotid Bruit: No PMI: Non-Displaced Heart Sounds: Yes: S1, S2. No: Split S2, S3, S4, Clicks, Gallop, Rub, Bruit Murmur: No: Systolic Murmur, Diastolic Murmur Musculoskeletal: Yes: WNL Extremities: Yes: WNL Edema: No Peripheral Pulses WNL: Yes Peripheral Pulses: 2+ Left Doralis Pedis, 2+ Right Dorsalis Pedis Neurological: Yes: Alert, Oriented Psychiatric: Yes: Alert, Oriented - Other Data Labs, Other Data: CBC, BMP 04/21/18 10:15 04/21/18 09:46 INR, PTT INR 0.98 (0.83-1.09) 04/21/18 10:15 Troponin, BNP 04/21/18 09:46 Troponin I 0.04 B-Natriuretic Peptide 2425.2 H Troponin, BNP 04/21/18 09:46 Troponin I 0.04 B-Natriuretic Peptide 2425.2 H nsr 78bpm, pvc, no sig change from past ekgs Echo: Report Reviewed Imaging - Results Chest X-ray: Report Reviewed, Image Reviewed EKG: Report Reviewed, Image Reviewed Other: Report Reviewed, Image Reviewed Assessment/Plan 78 year old woman with pmh HTN, HLD, DM, diverticulosis, colonic/uterine polyps , urinary incontinence, multiple prior abdominal surgeries, prior admissions for abdominal pain, nausea, vomiting, now again admitted for abdominal pain, nausea, vomiting as well as lightheadedness, dizziness, and frequent falls. Currently asymptomatic. states she has trouble tolerating food or water at home. states that she does take her medications as prescribed including her HTN meds. Notes b/l LE edema as well. Denies chest pain, sob, palpitations. No pnd, orthopnea. HTN-uncontrolled, may be exacerbated by abdominal pain -noted to be normal on ER visit 04/15/18 on same medical regimen -given IV Labetalol in ER -once able to take po meds would restart home anti-HTN regimen and re-evaluate for HTN control then can adjust from there -please confirm if she can take po meds even though npo -if not able to take po meds will start Labetalol 10mg IVP q4 hours prn Edema-localized b/l LE edema -lungs are clear -no symptoms of CHF -ECHO 02/03/18 normal LV/RV size and function, trace TR -unlikely due to CHF -could be secondary to venous insufficiency, may be secondary to Nifedipine -would not diurese at this time
[2018-04-21 16:59] VITALS: BMI 25.1
[2018-04-21] MEDS: INSULIN SLIDING SCALE (NOVOLOG) 1 VIAL SQ SCH ×2 (17:06→21:34)
--- NOTE | 2018-04-21 18:17 | CON.NEURO ---
Consult - History of Present Illness History of Present Illness: covering for DR SHIPMAN Ms Cole is a 77 yo F with a history of IDDM, HTN, HLD, arthritis, anxiety She presents to the ER with her daughter due to dizziness, recurrent falls, difficulty standing, frequent and excessive urination Pt was also noted today to have abdominal pain and diarrhea recent AIc > 11 ( 02/06) denies numbness of her feet, no LINK , no back pain , CT CSPINE IMPRESSION: Coronal and sagittal reconstruction images were obtained. There is straightening of the cervical spine. No gross fracture, subluxation or prevertebral soft tissue swelling is seen. No jumped facets are identified. There is moderate degenerative disc disease from C4 down to C7 level with mild anterior and posterior spur formation slightly narrowing the right foramina at C4-C5 and C5-C6 level and slightly to moderately narrowing the left foramen at C5-C6 level. There is an 8 mm nodular density in the right parotid gland that may represent an intraparotid lymph node. Cannot rule out a lesion such as atrial morphia cavity normal. [id number] size calcified plaques at the common carotid bifurcation, bilaterally. Tiny low-attenuation foci in the thyroid gland with a larger low-attenuation focus in the right thyroid lobe, posteriorly/inferiorly measuring 1 cm for which correlation with thyroid ultrasound would be helpful. Visualized portion of the airway appears unremarkable. No gross enlarged lymph nodes are identified. Lung windows at the thoracic inlet appear unremarkable. The alignment is satisfactory. No gross fracture or subluxation is seen. Multilevel degenerative disc disease, as described above. Small to moderate size calcified plaques at the common carotid bifurcation, bilaterally. Likely approximately 1 cm low-attenuation nodule density in the right thyroid lobe for which a nonemergent thyroid ultrasound is needed for further assessment of its consistency, cystic versus solid. CT HD IMPRESSION: No interval change or gross acute intracranial pathology is identified. Correlate clinically to determine further evaluation and follow-up. - Past Medical History [employer]: Yes: Dementia, Peripheral Neuropathy, Parkinson's Cardio/Vascular: Yes: HTN, Hyperlipdemia Gastrointestinal: Yes: Diverticulosis ...: No Musculoskeletal: Yes: Osteoarthritis Endocrine: Yes: Diabetes Mellitus - Past Surgical History Past Surgical History: Yes: Appendectomy, Cholecystectomy, - Alcohol/Substance Use Hx Alcohol Use: No - Smoking History Smoking history: Never smoked Have you smoked in the past 12 months: No Aproximately how many cigarettes per day: 0 - Social History Usual Living Arrangement: With Significant Other History of Recent Travel: No Home Medications - Allergies Allergies/Adverse Reactions: Allergies Allergy/AdvReac Type Severity Reaction Status Date / Time valsartan [From Diagnose.mevan] Allergy Mild Verified 04/21/18 09:15 - Home Medications Home Medications: Ambulatory Orders Aspirin [ASA -] 81 mg PO DAILY 09/09/15 Olmesartan/Hydrochlorothiazide [Benicar Hct 40-12.5MG Tab -] 1 tab PO DAILY Multivitamins [Multivit ([facility] Formulary)] 1 tab PO DAILY tab 08/19/17 Ondansetron [Zofran Odt -] 4 mg SL TID PRN #9 od.tablet 12/03/17 Donepezil HCl 10 mg PO DAILY 02/01/18 Metoclopramide HCl 5 mg PO DAILY 02/01/18 Pramipexole Di-HCl [Pramipexole Dihydrochloride] 1 mg PO HS 02/01/18 Rosuvastatin [Crestor -] 10 mg PO HS 02/01/18 Insulin Glargine,Hum.rec.anlog [Lantus (10mL VIAL) -] 28 units SQ ACBK 02/02/18 Bupropion HCl [Wellbutrin Xl -] 150 mg PO DAILY #30 tab.sr.24h 02/09/18 Divalproex [Depakote -] 250 mg PO DAILY tablet.ec 02/09/18 Nifedipine ER [Procardia XL -] 60 mg PO DAILY #30 tab.er.24 02/09/18 Pantoprazole Sodium [Protonix -] 40 mg PO DAILY #30 tablet.ec 02/09/18 Polyethylene Glycol 3350 [Miralax 119 gm Btl -] 17 gm PO BID bottle 02/09/18 Nitrofurantoin Monohyd/M-Cryst [Nitrofurantoin [place]-Mcr 100 mg] 100 mg PO BID 7 Days #14 capsule 04/19/18 Physical Exam-Neuro Vital Signs: Vital Signs Temperature 97.6 F 04/21/18 16:53 Pulse Rate 70 04/21/18 16:53 Respiratory Rate 18 04/21/18 16:53 Blood Pressure 150/57 L 04/21/18 16:53 O2 Sat by Pulse Oximetry (%) 100 04/21/18 17:16 Constitutional: Yes: Well Nourished Labs: CBC, BMP 04/21/18 10:15 04/21/18 09:46 INR, PTT INR 0.98 (0.83-1.09) 04/21/18 10:15 - Neuro Exam Level Of Consciousness: Yes: Alert, Oriented to Person (EOMI, no facial weakness , motor 5/5, no drift, prop intact, absnet distal LE reflexes, plantar dwon, no sesnory level, no ataxia ) Imaging - Results Cat Scan: Report Reviewed, Image Reviewed Problem List - Problems (1) Diabetes mellitus with neuropathy Code(s): E11.40 - TYPE 2 DIABETES MELLITUS WITH DIABETIC NEUROPATHY, UNSP (2) Diabetes mellitus with autonomic neuropathy Code(s): E11.43 - TYPE 2 DIABETES W DIABETIC AUTONOMIC (POLY)NEUROPATHY (3) Abdominal pain Code(s): R10.9 - UNSPECIFIED ABDOMINAL PAIN Qualifiers: Abdominal location: unspecified location Qualified Code(s): R10.9 - Unspecified abdominal pain (4) Frequent falls Code(s): R29.6 - REPEATED FALLS Assessment/Plan Ms Cole is a 77 yo F with a history of IDDM, HTN, HLD, arthritis, anxiety She presents to the ER with her daughter due to dizziness, recurrent falls, difficulty standing, frequent and excessive urination Pt was also noted today to have abdominal pain and diarrhea recent AIc > 11 ( 02/06) suspect DM neuropathy at play no central features on exam no evidence of a stroke, myelopathy etc clinically DM control , +/- gastroparesis can get outpt [facility] gait rehab FU DR RAMONITA DENIS
[2018-04-21] MEDS ORDERED: DEXTROSE 50%-WATER 25 GM/50 ML DISP.SYRIN IVPUSH PRN (18:19)
[2018-04-21] MEDS: POTASSIUM CHLORIDE 10 MEQ in DEXTROSE 5%-NORMAL SALINE 1,000 ML IVPB SCH (21:21)
[2018-04-21] MEDS: HEPARIN NA (PORCINE) 5,000 UNITS/ML 1ML VIAL SQ SCH (21:22)
[2018-04-21] MEDS ORDERED: INSULIN (NOVOLOG) ASPART 100 UNITS/ML 10ML VIAL ONE (21:33)
[2018-04-22] MEDS: INSULIN SLIDING SCALE (NOVOLOG) 1 VIAL SQ SCH ×4 (06:29→21:46)
[2018-04-22 07:17] LABS: BASO % 0.6 % (0-2.0); EOS % 3.1 % (0-4.5); HEMATOCRIT 26.6 % (32.4-45.2); HEMOGLOBIN 9.2 GM/dL (10.7-15.3); LYMPH % 21.5 % (8-40); MCH 28.2 pg (25.7-33.7); MCHC 34.5 g/dl (32.0-36.0); MEAN CELL VOLUME 81.7 fl (80-96); MEAN PLT VOLUME 7.4 fl (7.5-11.1); MONO % 9.3 % (3.8-10.2); NEUT % 65.5 % (42.8-82.8); PLATELET COUNT 348 K/MM3 (134-434); RBC 3.26 M/mm3 (3.60-5.2); RDW 15.2 % (11.6-15.6)
[2018-04-22 07:39] LABS: INR 1.03 (0.83-1.09); PROTHROMBIN TIME (PATIENT) 12.2 SEC (9.7-13.0)
[2018-04-22 07:42] LABS: ACTIVATED PTT 27.1 SECONDS (25.2-36.5)
[2018-04-22] MEDS: POTASSIUM CHLORIDE 10 MEQ in DEXTROSE 5%-NORMAL SALINE 1,000 ML IVPB SCH ×2 (07:50→09:58)
[2018-04-22 07:52] LABS: CHOLESTEROL 145 mg/dL (50-200); HDL CHOLESTEROL 85 mg/dL (40-60); TRIGLYCERIDES 71 mg/dL (0-150)
[2018-04-22 07:53] LABS: ALBUMIN 2.5 g/dl (3.4-5.0); ALK PHOS 106 U/L (45-117); ANION GAP 7 MMOL/L (8-16); BILIRUBIN,TOTAL 0.6 mg/dL (0.2-1); BLOOD UREA NITROGEN 11 mg/dL (7-18); CALCIUM 8.4 mg/dL (8.5-10.1); CHLORIDE 102 mmol/L (98-107); CO2 32 mmol/L (21-32); CREATININE 1.1 mg/dL (0.55-1.3); GLUCOSE,RANDOM 117 mg/dL (74-106); MAGNESIUM 2.3 mg/dL (1.8-2.4); PHOSPHOROUS 3.9 mg/dL (2.5-4.9); POTASSIUM 3.7 mmol/L (3.5-5.1); SGOT/AST 17 U/L (15-37); SGPT/ALT 20 U/L (13-61); SODIUM 141 mmol/L (136-145); TOT PROT 5.5 g/dl (6.4-8.2)
--- NOTE | 2018-04-22 08:45 | CON.GI ---
Consult Consult Specialty:: Gastroenterology Referred by:: Dr. Ashlie Mulligan Reason for Consultation:: Abdominal pain - History of Present Illness Chief Complaint: Abdominal pain History of Present Illness: Patient is a 78 y/o female with past medical history of HTN, DM, diverticulosis , colonic/uterine polyp. Patient presented to ER with complaints of abdominal pain with nausea and vomiting. Patient states experiencing mid, sharp abdominal pain accompanied with nausea, vomiting, and poor appetite for more than 1 month. She states that pain would slightly resolve ingesting a small amount of food but would return quickly. Patient also states that she experienced a 30lb weight loss, time frame unknown but she equates it to having a poor appetite. States her last BM was 3 days ago. Abdomen and Pelvic CT scan show s/p cholecystectomy with mild dilation of intrahepatic bile ducts and without gross dilation of common bile duct. Last colonoscopy was 07/2017 with moderate diverticulitis noted in left colon with normal colon mucosa. Denies dysphagia, early satiety, rectal bleeding, blood in stool, melena. - History Source History Provided By: Patient Limitations to Obtaining History: No Limitations - Past Medical History [employer]OR[employer] PHOTOGRAPHY: Yes: Dementia, Peripheral Neuropathy, Parkinson's Cardio/Vascular: Yes: HTN, Hyperlipdemia Gastrointestinal: Yes: Diverticulosis ...: No Musculoskeletal: Yes: Osteoarthritis Endocrine: Yes: Diabetes Mellitus - Past Surgical History Past Surgical History: Yes: Appendectomy, Cholecystectomy, - Alcohol/Substance Use Hx Alcohol Use: No - Smoking History Smoking history: Never smoked Have you smoked in the past 12 months: No Aproximately how many cigarettes per day: 0 - Social History Usual Living Arrangement: With Significant Other History of Recent Travel: No Home Medications - Allergies Allergies/Adverse Reactions: Allergies Allergy/AdvReac Type Severity Reaction Status Date / Time valsartan [From Diovan] Allergy Mild Verified 04/21/18 09:15 - Home Medications Home Medications: Ambulatory Orders Aspirin [ASA -] 81 mg PO DAILY 09/09/15 Olmesartan/Hydrochlorothiazide [Benicar Hct 40-12.5MG Tab -] 1 tab PO DAILY Multivitamins [Multivit ([facility] Formulary)] 1 tab PO DAILY tab 08/19/17 Ondansetron [Zofran Odt -] 4 mg SL TID PRN #9 od.tablet 12/03/17 Donepezil HCl 10 mg PO DAILY 02/01/18 Metoclopramide HCl 5 mg PO DAILY 02/01/18 Pramipexole Di-HCl [Pramipexole Dihydrochloride] 1 mg PO HS 02/01/18 Rosuvastatin [Crestor -] 10 mg PO HS 02/01/18 Insulin Glargine,Hum.rec.anlog [Lantus (10mL VIAL) -] 34 units SQ ACBK 02/02/18 Bupropion HCl [Wellbutrin Xl -] 150 mg PO DAILY #30 tab.sr.24h 02/09/18 Divalproex [Depakote -] 250 mg PO DAILY tablet.ec 02/09/18 Nifedipine ER [Procardia XL -] 60 mg PO DAILY #30 tab.er.24 02/09/18 Pantoprazole Sodium [Protonix -] 40 mg PO DAILY #30 tablet.ec 02/09/18 Polyethylene Glycol 3350 [Miralax 119 gm Btl -] 17 gm PO BID bottle 02/09/18 Family Disease History - Family Disease History Family History: Denies (denies family history of stomach or colon cancer) Review of Systems - Review of Systems Constitutional: reports: Loss of Appetite, Unintentional Wgt. Loss Eyes: reports: No Symptoms HENT: reports: No Symptoms Neck: reports: No Symptoms Cardiovascular: reports: No Symptoms Respiratory: reports: No Symptoms Gastrointestinal: reports: Abdominal Pain, Nausea, Vomiting Genitourinary: reports: No Symptoms Breasts: reports: No Symptoms Reported Musculoskeletal: reports: No Symptoms Integumentary: reports: No Symptoms Neurological: reports: No Symptoms Endocrine: reports: No Symptoms Hematology/Lymphatic: reports: No Symptoms Psychiatric: reports: No Symptoms Physical Exam-GI Vital Signs: Vital Signs Temperature 98.9 F 04/22/18 06:31 Pulse Rate 83 04/22/18 06:31 Respiratory Rate 20 04/22/18 06:31 Blood Pressure 185/71 H 04/22/18 06:31 O2 Sat by Pulse Oximetry (%) 100 04/21/18 17:16 Constitutional: Yes: Well Nourished, No Distress, Calm Eyes: Yes: Conjunctiva Clear HENT: Yes: Normocephalic Neck: Yes: Supple Cardiovascular: Yes: Regular Rate and Rhythm Respiratory: Yes: Regular, CTA Bilaterally Gastrointestinal Inspection: Yes: Scars. No: WNL, Ascites, Distention, Hernia, Other ...Auscultate: Yes: Normoactive Bowel Sounds. No: Hyperactive Bowel Sounds, Hypoactive Bowel Sounds, No Bowel Sounds, Other ...Palpate: Yes: Tenderness (tenderness to mid abdomen and LUQ). No: Firm/Rigid , Guarding, Hepatomegaly, Mass, Pulsatile Mass, Soft, Splenomegaly, Tenderness, Epigastium, Tenderness, Rebound, Other ...Percussion: Yes: Tympanitic Neurological: Yes: Alert, Oriented Labs: CBC, BMP 04/22/18 06:30 04/22/18 06:30 INR, PTT INR 1.03 (0.83-1.09) 04/22/18 06:30 Active Medications Generic Name Dose Route Start Last Admin Trade Name Freq PRN Reason Stop Dose Admin Dextrose 25 gm 04/21/18 18:19 D50w (Syringe) - IVPUSH PRN PRN HYPOGLYCEMIA Divalproex Sodium 250 mg 04/22/18 10:00 Depakote - PO DAILY [facility] Heparin Sodium (Porcine) 5,000 unit 04/21/18 22:00 04/21/18 21:22 Heparin - SQ 5,000 unit BID [facility] Administration Potassium Chloride 10 meq/ 1,005 mls @ 75 mls/hr 04/21/18 19:00 04/22/18 07: 50 Dextrose/Sodium Chloride IVPB Not Given Q13H [facility] Insulin Aspart 1 vial 04/21/18 16:30 04/22/18 06:29 Novolog Vial Sliding Scale - SQ Not Given ACHS [facility] Protocol Ondansetron HCl 4 mg 04/21/18 13:52 Zofran Injection IVPUSH Q6H PRN NAUSEA Pantoprazole Sodium 40 mg 04/22/18 10:00 Protonix Iv IVPUSH DAILY [facility] Imaging - Results Cat Scan: Report Reviewed Problem List - Problems (1) Abdominal pain Assessment/Plan: multifactorial including IBS with constipation, 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
[2018-04-22] MEDS: HEPARIN NA (PORCINE) 5,000 UNITS/ML 1ML VIAL SQ SCH ×2 (09:43→21:41)
[2018-04-22] MEDS: DIVALPROEX SODIUM 250 MG TABLET E.C. PO SCH (09:50)
[2018-04-22] MEDS ORDERED: PANTOPRAZOLE SODIUM 40 MG VIAL IVPUSH SCH (10:00)
[2018-04-22] MEDS ORDERED: ONDANSETRON *ODT* 4 MG TABLET SL PRN (11:47)
--- NOTE | 2018-04-22 11:53 | PN ---
Progress Note, Physician Chief Complaint: Abdominal pain, Nausea, Vomiting History of Present Illness: NAD abdominal pain improved wants to eat - Current Medication List Current Medications: Active Medications Aspirin (Asa -) 81 mg PO DAILY [facility] Bupropion HCl (Wellbutrin Xl -) 150 mg PO DAILY [facility] Dextrose (D50w (Syringe) -) 25 gm IVPUSH PRN PRN PRN Reason: HYPOGLYCEMIA Divalproex Sodium (Depakote -) 250 mg PO DAILY [facility] Last Admin: 04/22/18 09:50 Dose: 250 mg Donepezil HCl (Aricept -) 10 mg PO HS [facility] HCTZ/Losartan Potassium (Hyzaar -) 2 tab PO DAILY [facility] Heparin Sodium (Porcine) (Heparin -) 5,000 unit SQ BID [facility] Last Admin: 04/22/18 09:43 Dose: 5,000 unit Insulin Aspart (Novolog Vial Sliding Scale -) 1 vial SQ ACHS [facility]; Protocol Last Admin: 04/22/18 11:26 Dose: Not Given Multivitamins/Minerals/Vitamin C (Tab-A-Vit -) 1 tab PO DAILY [facility] Ondansetron HCl (Zofran Odt -) 4 mg SL TID PRN PRN Reason: NAUSEA AND/OR VOMITING Pantoprazole Sodium (Protonix -) 40 mg PO DAILY [facility] Polyethylene Glycol (Miralax (For Daily Use) -) 17 gm PO BID [facility] Pramipexole Dihydrochloride (Mirapex -) 1 mg PO HS [facility] Rifaximin (Xifaxan -) 550 mg PO TID [facility] Rosuvastatin Calcium (Crestor -) 10 mg PO HS [facility] - Objective Vital Signs: Vital Signs Temperature 98.9 F 04/22/18 06:31 Pulse Rate 83 04/22/18 06:31 Respiratory Rate 20 04/22/18 06:31 Blood Pressure 185/71 H 04/22/18 06:31 O2 Sat by Pulse Oximetry (%) 100 04/21/18 17:16 Constitutional: Yes: Well Nourished, No Distress, Calm Cardiovascular: Yes: Regular Rate and Rhythm Respiratory: Yes: Regular Gastrointestinal: Yes: Normal Bowel Sounds, Soft Genitourinary: Yes: WNL Musculoskeletal: Yes: Muscle Weakness Extremities: Yes: WNL Edema: No Neurological: Yes: Alert, Oriented Psychiatric: Yes: Alert, Oriented Labs: CBC, BMP 04/22/18 06:30 04/22/18 06:30 INR, PTT INR 1.03 (0.83-1.09) 04/22/18 06:30 Problem List - Problems (1) Abdominal pain Assessment/Plan: -GI consult -advance diet diabetic-low residue-lactose free -Rifaximine 550 mg po TID -abd CT reviewed Code(s): R10.9 - UNSPECIFIED ABDOMINAL PAIN Qualifiers: Abdominal location: unspecified location Qualified Code(s): R10.9 - Unspecified abdominal pain (2) Diabetes mellitus with autonomic neuropathy Assessment/Plan: -Endocrinology consult -BGM AC HS -Diabetic diet -Insulin Novolog+ Levemir Code(s): E11.43 - TYPE 2 DIABETES W DIABETIC AUTONOMIC (POLY)NEUROPATHY (3) Nausea and vomiting Assessment/Plan: -resolved -Zofran PRN -GI consult Code(s): R11.2 - NAUSEA WITH VOMITING, UNSPECIFIED Qualifiers: Vomiting type: unspecified Vomiting Intractability: unspecified Qualified Code(s): R11.2 - Nausea with vomiting, unspecified (4) HTN (hypertension) Assessment/Plan: -cardiology on board -resume ARB -Added hydralazine 25 mg po bid -monitor trend -d/c IVF Code(s): I10 - ESSENTIAL (PRIMARY) HYPERTENSION (5) Anemia Assessment/Plan: -dilutional ? -check B12, Thyroid and iron profile -Check folate -stool OB -monitor trend Code(s): D64.9 - ANEMIA, UNSPECIFIED Assessment/Plan see problem list Physical therapy
[2018-04-22] MEDS ORDERED: PT OWN MED DRAWER 7, Y5N ONE (14:17)
[2018-04-22] MEDS: PANTOPRAZOLE 40 MG TABLET (FP) PO SCH ×2 (14:20→15:35)
[2018-04-22] MEDS: MULTIVITAMINS (DAILY MVI) TABLET (FP) PO SCH (14:20)
[2018-04-22] MEDS: ASPIRIN 81 MG CHEWABLE TABLETS PO SCH (14:20)
[2018-04-22] MEDS: LOSARTAN 50MG/HCTZ 12.5MG 1 TAB (FP) PO SCH (14:20)
[2018-04-22] MEDS: POLYETHYLENE GLYCOL 3350 119 GM BTL PO SCH ×2 (14:20→21:43)
[2018-04-22] MEDS: RIFAXIMIN 550 MG TABLET (UD) PO SCH ×2 (14:20→21:40)
--- NOTE | 2018-04-22 14:44 | PN ---
Progress Note, Physician History of Present Illness: Seen and examined today in nad. feeling a little better today. still has abd discomfort. no chest pain or sob. - Current Medication List Current Medications: Active Medications Aspirin (Asa -) 81 mg PO DAILY [facility] Last Admin: 04/22/18 14:20 Dose: 81 mg Bupropion HCl (Wellbutrin Xl -) 150 mg PO DAILY [facility] Dextrose (D50w (Syringe) -) 25 gm IVPUSH PRN PRN PRN Reason: HYPOGLYCEMIA Divalproex Sodium (Depakote -) 250 mg PO DAILY [facility] Last Admin: 04/22/18 09:50 Dose: 250 mg Donepezil HCl (Aricept -) 10 mg PO [facility] HCTZ/Losartan Potassium (Hyzaar -) 2 tab PO DAILY [facility] Last Admin: 04/22/18 14:20 Dose: 2 tab Heparin Sodium (Porcine) (Heparin -) 5,000 unit SQ BID [facility] Last Admin: 04/22/18 09:43 Dose: 5,000 unit Insulin Aspart (Novolog Vial Sliding Scale -) 1 vial SQ [facility]; Protocol Last Admin: 04/22/18 11:26 Dose: Not Given Multivitamins/Minerals/Vitamin C (Tab-A-Vit -) 1 tab PO DAILY [facility] Last Admin: 04/22/18 14:20 Dose: 1 tab Ondansetron HCl (Zofran Odt -) 4 mg SL TID PRN PRN Reason: NAUSEA AND/OR VOMITING Pantoprazole Sodium (Protonix -) 40 mg PO DAILY [facility] Last Admin: 04/22/18 14:20 Dose: 40 mg Polyethylene Glycol (Miralax (For Daily Use) -) 17 gm PO BID [facility] Last Admin: 04/22/18 14:20 Dose: Not Given Pramipexole Dihydrochloride (Mirapex -) 1 mg PO [facility] Rifaximin (Xifaxan -) 550 mg PO TID [facility] Last Admin: 04/22/18 14:20 Dose: 550 mg Rosuvastatin Calcium (Crestor -) 10 mg PO [facility] - Objective Vital Signs: Vital Signs Temperature 98.9 F 04/22/18 06:31 Pulse Rate 83 04/22/18 06:31 Respiratory Rate 20 04/22/18 06:31 Blood Pressure 185/71 H 04/22/18 06:31 O2 Sat by Pulse Oximetry (%) 100 04/21/18 17:16 Constitutional: Yes: No Distress, Calm Eyes: Yes: Conjunctiva Clear, EOM Intact HENT: Yes: Atraumatic, Normocephalic Neck: Yes: Supple, Trachea Midline Cardiovascular: Yes: Regular Rate and Rhythm, S1, S2. No: Bradycardia, Tachycardia, Pulse Irregular, Bruit, JVD, Gallop, Murmur, Rub, S3, S4, Varicosities Respiratory: Yes: Regular, CTA Bilaterally. No: Rales, Rhonchi, Wheezes Gastrointestinal: Yes: Normal Bowel Sounds, Tenderness. No: Soft, Distention Extremities: Yes: WNL Edema: Yes Edema: LLE: Trace, RLE: Trace Peripheral Pulses WNL: Yes Peripheral Pulses: Left Doralis Pedis: 2+, Right Dorsalis Pedis: 2+ Neurological: Yes: Alert, Oriented Psychiatric: Yes: Alert, Oriented Labs: CBC, BMP 04/22/18 06:30 04/22/18 06:30 INR, PTT INR 1.03 (0.83-1.09) 04/22/18 06:30 - ....Imaging Chest X-ray: Report Reviewed, Image Reviewed EKG: Report Reviewed, Image Reviewed Other: Report Reviewed, Image Reviewed Assessment/Plan 78 year old woman with pmh HTN, HLD, DM, diverticulosis, colonic/uterine polyps , urinary incontinence, multiple prior abdominal surgeries, prior admissions for abdominal pain, nausea, vomiting, now again admitted for abdominal pain, nausea, vomiting as well as lightheadedness, dizziness, and frequent falls. Currently asymptomatic. states she has trouble tolerating food or water at home. states that she does take her medications as prescribed including her HTN meds. Notes b/l LE edema as well. Denies chest pain, sob, palpitations. No pnd, orthopnea. HTN-above goal but improved since admission, likely exacerbated by abdominal pain -noted to be normal on ER visit 04/15/18 on same medical regimen -on olmesartan/hctz at home, presume not on formulary here, cont losartan/hctz during admission -Nifedipine reported on home medication list, possible contribution of LE edema however for now in setting of uncontrolled HTN would resume Edema-localized b/l LE edema -lungs are clear -no symptoms of CHF -ECHO 11/15/18 normal LV/RV size and function, trace TR -unlikely due to CHF -could be secondary to venous insufficiency, may be secondary to Nifedipine but currently needed for htn control so would resume for now and can be re- evaluated as outpatient -would not diurese at this time No additional inpatient cardiac work up needed at this time. Please call with any additional questions.
[2018-04-22] MEDS ORDERED: NIFEdipine E.R. 30 MG TABLET (FP) PO SCH (15:00)
[2018-04-22] MEDS ORDERED: hydrALAZINE HCL 25 MG TABLET (FP) PO ONE (17:00)
[2018-04-22] MEDS: hydrALAZINE HCL 25 MG TABLET (FP) PO SCH (21:40)
[2018-04-22] MEDS: ROSUVASTATIN CA 10 MG TABLET (FP) PO SCH (21:40)
[2018-04-22] MEDS: DONEPEZIL HCL 10 MG TABLET (FP) PO SCH (21:41)
[2018-04-22] MEDS: PRAMIPEXOLE DIHYDROCHLORIDE 1 MG TABLET PO SCH (22:18)
[2018-04-23] MEDS: RIFAXIMIN 550 MG TABLET (UD) PO SCH ×4 (05:56→21:04)
[2018-04-23] MEDS: INSULIN SLIDING SCALE (NOVOLOG) 1 VIAL SQ SCH ×4 (06:01→21:04)
[2018-04-23] MEDS ORDERED: ACETAMINOPHEN 1000 MG/100 ML VIAL (NON FORMULARY) IVPB ONE (06:27)
[2018-04-23] MEDS: hydrALAZINE HCL 25 MG TABLET (FP) PO SCH ×3 (06:38→21:04)
[2018-04-23 07:32] LABS: BASO % 0.6 % (0-2.0); EOS % 1.9 % (0-4.5); HEMATOCRIT 28.1 % (32.4-45.2); HEMOGLOBIN 9.8 GM/dL (10.7-15.3); LYMPH % 12.5 % (8-40); MCH 28.4 pg (25.7-33.7); MCHC 34.8 g/dl (32.0-36.0); MEAN CELL VOLUME 81.5 fl (80-96); MEAN PLT VOLUME 7.6 fl (7.5-11.1); MONO % 7.5 % (3.8-10.2); NEUT % 77.5 % (42.8-82.8); PLATELET COUNT 347 K/MM3 (134-434); RBC 3.44 M/mm3 (3.60-5.2); RDW 15.1 % (11.6-15.6); WHITE BLOOD COUNT 8.5 K/mm3 (4.0-10.0)
[2018-04-23 08:31] LABS: ALBUMIN 2.6 g/dl (3.4-5.0); ALK PHOS 116 U/L (45-117); ANION GAP 8 MMOL/L (8-16); BILIRUBIN,TOTAL 0.6 mg/dL (0.2-1); BLOOD UREA NITROGEN 13 mg/dL (7-18); CALCIUM 8.3 mg/dL (8.5-10.1); CHLORIDE 98 mmol/L (98-107); CO2 30 mmol/L (21-32); CREATININE 1.1 mg/dL (0.55-1.3); GLUCOSE,RANDOM 176 mg/dL (74-106); POTASSIUM 3.8 mmol/L (3.5-5.1); SGOT/AST 21 U/L (15-37); SGPT/ALT 20 U/L (13-61); SODIUM 136 mmol/L (136-145); TOT PROT 5.7 g/dl (6.4-8.2)
[2018-04-23] MEDS ORDERED: PT OWN MED DRAWER 7, Y5N ONE ×3 (09:51→19:52)
[2018-04-23] MEDS: ASPIRIN 81 MG CHEWABLE TABLETS PO SCH (09:55)
[2018-04-23] MEDS: HEPARIN NA (PORCINE) 5,000 UNITS/ML 1ML VIAL SQ SCH ×2 (09:55→21:03)
[2018-04-23] MEDS: DIVALPROEX SODIUM 250 MG TABLET E.C. PO SCH (09:55)
[2018-04-23] MEDS: PANTOPRAZOLE 40 MG TABLET (FP) PO SCH (09:56)
[2018-04-23] MEDS: LOSARTAN 50MG/HCTZ 12.5MG 1 TAB (FP) PO SCH (09:56)
[2018-04-23] MEDS: MULTIVITAMINS (DAILY MVI) TABLET (FP) PO SCH (09:56)
[2018-04-23] MEDS: POLYETHYLENE GLYCOL 3350 119 GM BTL PO SCH ×2 (09:56→21:04)
--- NOTE | 2018-04-23 11:14 | PN ---
Progress Note, Physician Chief Complaint: AWAKE ALERT APPEARS ANXIOUS EVENTS AND NOTES REVIEWED - Current Medication List Current Medications: Active Medications Amlodipine Besylate (Norvasc -) 5 mg PO DAILY [facility] Aspirin (Asa -) 81 mg PO DAILY [facility] Last Admin: 04/23/18 09:55 Dose: 81 mg Bupropion HCl (Wellbutrin Xl -) 150 mg PO DAILY [facility] Last Admin: 04/23/18 09:56 Dose: 150 mg Dextrose (D50w (Syringe) -) 25 gm IVPUSH PRN PRN PRN Reason: HYPOGLYCEMIA Divalproex Sodium (Depakote -) 250 mg PO DAILY [facility] Last Admin: 04/23/18 09:55 Dose: 250 mg Donepezil HCl (Aricept -) 10 mg PO HS [facility] Last Admin: 04/22/18 21:41 Dose: 10 mg HCTZ/Losartan Potassium (Hyzaar -) 2 tab PO DAILY [facility] Last Admin: 04/23/18 09:56 Dose: 2 tab Heparin Sodium (Porcine) (Heparin -) 5,000 unit SQ BID [facility] Last Admin: 04/23/18 09:55 Dose: 5,000 unit Hydralazine HCl (Apresoline -) 25 mg PO BID [facility] Last Admin: 04/23/18 10:05 Dose: Not Given Insulin Aspart (Novolog Vial Sliding Scale -) 1 vial SQ [facility]; Protocol Last Admin: 04/23/18 06:01 Dose: Not Given Multivitamins/Minerals/Vitamin C (Tab-A-Vit -) 1 tab PO DAILY [facility] Last Admin: 04/23/18 09:56 Dose: 1 tab Ondansetron HCl (Zofran Odt -) 4 mg SL TID PRN PRN Reason: NAUSEA AND/OR VOMITING Last Admin: 04/23/18 05:54 Dose: 4 mg Pantoprazole Sodium (Protonix -) 40 mg PO DAILY [facility] Last Admin: 04/23/18 09:56 Dose: 40 mg Polyethylene Glycol (Miralax (For Daily Use) -) 17 gm PO BID [facility] Last Admin: 04/23/18 09:56 Dose: Not Given Pramipexole Dihydrochloride (Mirapex -) 1 mg PO HS [facility] Last Admin: 04/22/18 22:18 Dose: 1 mg Rifaximin (Xifaxan -) 550 mg PO TID [facility] Last Admin: 04/23/18 06:39 Dose: 550 mg Rosuvastatin Calcium (Crestor -) 10 mg PO HS [facility] Last Admin: 04/22/18 21:40 Dose: 10 mg - Objective Vital Signs: Vital Signs Temperature 98 F 04/23/18 10:00 Pulse Rate 74 04/23/18 10:00 Respiratory Rate 18 04/23/18 10:00 Blood Pressure 206/73 H 04/23/18 10:00 O2 Sat by Pulse Oximetry (%) 95 04/22/18 21:00 Constitutional: Yes: Mild Distress Eyes: Yes: WNL HENT: Yes: WNL Neck: Yes: WNL Cardiovascular: Yes: Regular Rate and Rhythm Respiratory: Yes: WNL Gastrointestinal: Yes: Soft, Tenderness Genitourinary: Yes: WNL Musculoskeletal: Yes: WNL Extremities: Yes: WNL Edema: No Peripheral Pulses WNL: Yes Integumentary: Yes: WNL Wound/Incision: Yes: Clean/Dry Neurological: Yes: WNL ...Motor Strength: WNL Psychiatric: Yes: Other Labs: CBC, BMP 04/23/18 06:00 04/23/18 06:00 INR, PTT INR 1.03 (0.83-1.09) 04/22/18 06:30 Problem List - Problems (1) Gastroparesis due to DM Code(s): E11.43 - TYPE 2 DIABETES W DIABETIC AUTONOMIC (POLY)NEUROPATHY; K31.84 - GASTROPARESIS (2) Abdominal pain Code(s): R10.9 - UNSPECIFIED ABDOMINAL PAIN Qualifiers: Abdominal location: unspecified location Qualified Code(s): R10.9 - Unspecified abdominal pain (3) Anemia Code(s): D64.9 - ANEMIA, UNSPECIFIED (4) Diabetes mellitus with autonomic neuropathy Code(s): E11.43 - TYPE 2 DIABETES W DIABETIC AUTONOMIC (POLY)NEUROPATHY (5) Failure to thrive Code(s): [id number] - Qualifiers: Failure to thrive age range: in adult Qualified Code(s): R62.7 - Adult failure to thrive (6) Nausea and vomiting Code(s): R11.2 - NAUSEA WITH VOMITING, UNSPECIFIED Qualifiers: Vomiting type: unspecified Vomiting Intractability: unspecified Qualified Code(s): R11.2 - Nausea with vomiting, unspecified Assessment/Plan START REGLAN PO BEFORE MEALS WILL NEED GASTRIC EMPTYING TEST DONE OUTPATIENT GI EVAL APPRECIATED AMLODIPINE STARTED NOW 5MG FOR ELEVATED BP REPEAT BP IN 2 HOURS START ANXIETY TREATMENT CYMBALTA 20MG DAILY PRN KLONOPIN PT EVAL SNF PLACEMENT
[2018-04-23] MEDS ORDERED: INSULIN (NOVOLOG) ASPART 100 UNITS/ML 10ML VIAL ONE ×2 (11:48→19:52)
[2018-04-23] MEDS: clonazePAM 0.5 MG TABLET PO PRN (11:55)
[2018-04-23] MEDS: amLODIPine BESYLATE 5 MG TABLET (FP) PO SCH (11:55)
--- NOTE | 2018-04-23 13:23 | PN ---
GI Progress Note Subjective: still with abdominal pain and bloating , poor appetite - Objective Vital Signs: Vital Signs Temperature 98 F 04/23/18 10:00 Pulse Rate 74 04/23/18 10:00 Respiratory Rate 18 04/23/18 10:00 Blood Pressure 206/73 H 04/23/18 10:00 O2 Sat by Pulse Oximetry (%) 95 04/23/18 09:00 Constitutional: Well Nourished Eyes: Yes: Conjunctiva Clear HENT: Yes: Atraumatic Neck: Yes: Supple Cardiovascular: Yes: Regular Rate and Rhythm Respiratory: Yes: CTA Bilaterally Gastrointestinal Inspection: Yes: Distention (--mild) ...Auscultate: Yes: Normoactive Bowel Sounds ...Palpate: Yes: Soft, Tenderness (mild). No: Hepatomegaly, Mass, Pulsatile Mass Labs: CBC, BMP 04/23/18 06:00 04/23/18 06:00 INR, PTT INR 1.03 (0.83-1.09) 04/22/18 06:30 - ....Imaging Cat Scan: Report Reviewed (-- retained stool) Problem List - Problems (1) Abdominal pain Code(s): R10.9 - UNSPECIFIED ABDOMINAL PAIN Qualifiers: Abdominal location: unspecified location Qualified Code(s): R10.9 - Unspecified abdominal pain (2) IBS (irritable bowel syndrome) Assessment/Plan: suspect exocrine pancreatic insufficiency, R> conitnue Xifaxan creon 36,000 tid with meals Code(s): K58.9 - IRRITABLE BOWEL SYNDROME WITHOUT DIARRHEA
[2018-04-23] MEDS ORDERED: MAGNESIUM CITRATE 300 ML BOTTLE PO ONE (14:00)
[2018-04-23] MEDS: METOCLOPRAMIDE HCL 10 MG TABLET (FP) PO SCH ×2 (17:24→21:04)
[2018-04-23] MEDS: LIPASE/PROTEASE/AMYLASE 36,000 UNIT CAPSULE PO SCH (17:25)
[2018-04-23] MEDS: DONEPEZIL HCL 10 MG TABLET (FP) PO SCH (21:04)
[2018-04-23] MEDS: ROSUVASTATIN CA 10 MG TABLET (FP) PO SCH (21:04)
[2018-04-23] MEDS: PRAMIPEXOLE DIHYDROCHLORIDE 1 MG TABLET PO SCH (21:05)
--- NOTE | 2018-04-23 23:04 | CONSULT ---
Consult Consult Specialty:: endocrine Referred by:: nicolle patino np Reason for Consultation:: diabetes mellitus hyperglycemia - History of Present Illness Chief Complaint: high sugars feeling nauseas poor appetite - Past Medical History [employer]PERINT[employer]ENT SERVICE: Yes: Dementia, Peripheral Neuropathy, Parkinson's Cardio/Vascular: Yes: HTN, Hyperlipdemia Gastrointestinal: Yes: Diverticulosis ...: No Musculoskeletal: Yes: Osteoarthritis Endocrine: Yes: Diabetes Mellitus - Past Surgical History Past Surgical History: Yes: Appendectomy, Cholecystectomy, - Alcohol/Substance Use Hx Alcohol Use: No - Smoking History Smoking history: Never smoked Have you smoked in the past 12 months: No Aproximately how many cigarettes per day: 0 - Social History Usual Living Arrangement: With Significant Other History of Recent Travel: No Home Medications - Allergies Allergies/Adverse Reactions: Allergies Allergy/AdvReac Type Severity Reaction Status Date / Time valsartan [From fos4X] Allergy Mild Verified 04/21/18 09:15 - Home Medications Home Medications: Ambulatory Orders Aspirin [ASA -] 81 mg PO DAILY 09/09/15 Olmesartan/Hydrochlorothiazide [Benicar Hct 40-12.5MG Tab -] 1 tab PO DAILY Multivitamins [Multivit ([facility] Formulary)] 1 tab PO DAILY tab 08/19/17 Ondansetron [Zofran Odt -] 4 mg SL TID PRN #9 od.tablet 12/03/17 Donepezil HCl 10 mg PO DAILY 02/01/18 Metoclopramide HCl 5 mg PO DAILY 02/01/18 Pramipexole Di-HCl [Pramipexole Dihydrochloride] 1 mg PO HS 02/01/18 Rosuvastatin [Crestor -] 10 mg PO HS 02/01/18 Insulin Glargine,Hum.rec.anlog [Lantus (10mL VIAL) -] 34 units SQ ACBK 02/02/18 Bupropion HCl [Wellbutrin Xl -] 150 mg PO DAILY #30 tab.sr.24h 02/09/18 Divalproex [Depakote -] 250 mg PO DAILY tablet.ec 02/09/18 Nifedipine ER [Procardia XL -] 60 mg PO DAILY #30 tab.er.24 02/09/18 Pantoprazole Sodium [Protonix -] 40 mg PO DAILY #30 tablet.ec 02/09/18 Polyethylene Glycol 3350 [Miralax 119 gm Btl -] 17 gm PO BID bottle 02/09/18 Review of Systems - Review of Systems Constitutional: reports: Lethargy, Loss of Appetite, Weakness Eyes: reports: Blurred Vision HENT: reports: Throat Pain Neck: reports: No Symptoms Cardiovascular: reports: No Symptoms Respiratory: reports: SOB on Exertion Gastrointestinal: reports: Bloating, Constipation Genitourinary: reports: No Symptoms Breasts: reports: No Symptoms Reported Musculoskeletal: reports: Joint Pain, Joint Swelling, Muscle Pain Integumentary: reports: No Symptoms Neurological: reports: Numbness, Weakness Endocrine: reports: Unexplained Weight Loss Physical Exam Vital Signs: Vital Signs Temperature 98.7 F 04/23/18 19:55 Pulse Rate 82 04/23/18 19:55 Respiratory Rate 20 04/23/18 19:55 Blood Pressure 151/73 04/23/18 19:55 O2 Sat by Pulse Oximetry (%) 95 04/23/18 19:55 Constitutional: Yes: Calm Eyes: Yes: EOM Intact HENT: Yes: Normocephalic Neck: Yes: Trachea Midline Cardiovascular: Yes: Regular Rate and Rhythm Respiratory: Yes: CTA Bilaterally Gastrointestinal: Yes: Soft, Distention, Tenderness ...Rectal Exam: Yes: Deferred Renal/: Yes: WNL Musculoskeletal: Yes: Back Pain, Joint Swelling, Muscle Pain Neurological: Yes: Alert, Oriented Labs: CBC, BMP 04/23/18 06:00 04/23/18 06:00 Problem List - Problems (1) Abdominal pain Code(s): R10.9 - UNSPECIFIED ABDOMINAL PAIN Qualifiers: Abdominal location: unspecified location Qualified Code(s): R10.9 - Unspecified abdominal pain (2) Anemia Code(s): D64.9 - ANEMIA, UNSPECIFIED (3) Diabetes mellitus with autonomic neuropathy Code(s): E11.43 - TYPE 2 DIABETES W DIABETIC AUTONOMIC (POLY)NEUROPATHY (4) Diabetes mellitus with neuropathy Code(s): E11.40 - TYPE 2 DIABETES MELLITUS WITH DIABETIC NEUROPATHY, UNSP (5) Frequent falls Code(s): R29.6 - REPEATED FALLS (6) Gastroparesis due to DM Code(s): E11.43 - TYPE 2 DIABETES W DIABETIC AUTONOMIC (POLY)NEUROPATHY; K31.84 - GASTROPARESIS (7) Hypervolemia Code(s): E87.70 - FLUID OVERLOAD, UNSPECIFIED Qualifiers: Hypervolemia type: unspecified Qualified Code(s): E87.70 - Fluid overload, unspecified Assessment/Plan Current Active Problems Abdominal pain (Acute) Anemia (Acute) Diabetes mellitus with autonomic neuropathy (Acute) Diabetes mellitus with neuropathy (Acute) Failure to thrive (Acute) Frequent falls (Acute) Gastroparesis due to DM (Acute) Hypervolemia (Acute) IBS (irritable bowel syndrome) (Acute) Nausea and vomiting (Acute) Abnormal Lab Results 04/23/18 04/23/18 06:00 06:00 RBC 3.44 L Hgb 9.8 L Hct 28.1 L Random Glucose 176 H Calcium 8.3 L Total Protein 5.7 L Albumin 2.6 L Laboratory Results - last 24 hr 04/23/18 04/23/18 04/23/18 05:51 06:00 06:00 WBC 8.5 RBC 3.44 L Hgb 9.8 L Hct 28.1 L MCV 81.5 MCH 28.4 MCHC 34.8 RDW 15.1 Plt Count 347 MPV 7.6 Absolute Neuts (auto) 6.6 Neutrophils % 77.5 Lymphocytes % 12.5 D Monocytes % 7.5 Eosinophils % 1.9 Basophils % 0.6 Nucleated RBC % 0 Sodium 136 Potassium 3.8 Chloride 98 Carbon Dioxide 30 Anion Gap 8 BUN 13 Creatinine 1.1 Creat Clearance w eGFR 48.29 POC Glucometer 182 Random Glucose 176 H Calcium 8.3 L Total Bilirubin 0.6 AST 21 ALT 20 Alkaline Phosphatase 116 Total Protein 5.7 L Albumin 2.6 L 04/23/18 04/23/18 04/23/18 11:20 17:18 19:57 WBC RBC Hgb Hct MCV MCH MCHC RDW Plt Count MPV Absolute Neuts (auto) Neutrophils % Lymphocytes % Monocytes % Eosinophils % Basophils % Nucleated RBC % Sodium Potassium Chloride Carbon Dioxide Anion Gap BUN Creatinine Creat Clearance w eGFR POC Glucometer 353 162 328 Random Glucose Calcium Total Bilirubin AST ALT Alkaline Phosphatase Total Protein Albumin plan: Selected Entries 04/23/18 04/23/18 04/23/18 04:35 06:18 06:20 Blood Pressure 147/92 163/72 210/72 H 04/23/18 04/23/18 10:00 14:26 Blood Pressure 206/73 H 191/81 H Laboratory Tests 04/22/18 04/23/18 04/23/18 21:45 05:51 06:00 Sodium 136 Potassium 3.8 Chloride 98 Carbon Dioxide 30 Anion Gap 8 BUN 13 POC Glucometer 132 182 Calcium 8.3 L 04/23/18 04/23/18 11:20 17:18 Sodium Potassium Chloride Carbon Dioxide Anion Gap BUN POC Glucometer 353 162 Calcium bgm qid novolog insulin avoid oral agents levemir daily am dose 15 units once diet resumes
[2018-04-24 06:03] LABS: BASO % 0.3 % (0-2.0); EOS % 2.7 % (0-4.5); HEMATOCRIT 27.3 % (32.4-45.2); HEMOGLOBIN 9.3 GM/dL (10.7-15.3); LYMPH % 19.6 % (8-40); MCH 27.9 pg (25.7-33.7); MCHC 34.1 g/dl (32.0-36.0); MEAN CELL VOLUME 81.9 fl (80-96); MEAN PLT VOLUME 7.5 fl (7.5-11.1); MONO % 10.8 % (3.8-10.2); NEUT % 66.6 % (42.8-82.8); PLATELET COUNT 380 K/MM3 (134-434); RBC 3.33 M/mm3 (3.60-5.2); RDW 14.9 % (11.6-15.6); WHITE BLOOD COUNT 7.9 K/mm3 (4.0-10.0)
[2018-04-24] MEDS: INSULIN SLIDING SCALE (NOVOLOG) 1 VIAL SQ SCH ×2 (06:16→12:21)
[2018-04-24] MEDS: METOCLOPRAMIDE HCL 10 MG TABLET (FP) PO SCH ×2 (06:16→12:21)
[2018-04-24] MEDS: RIFAXIMIN 550 MG TABLET (UD) PO SCH ×2 (06:16→13:19)
[2018-04-24 06:26] LABS: ALBUMIN 2.4 g/dl (3.4-5.0); ALK PHOS 111 U/L (45-117); ANION GAP 4 MMOL/L (8-16); BILIRUBIN,TOTAL 0.4 mg/dL (0.2-1); BLOOD UREA NITROGEN 19 mg/dL (7-18); CALCIUM 8.3 mg/dL (8.5-10.1); CHLORIDE 97 mmol/L (98-107); CO2 37 mmol/L (21-32); CREATININE 1.3 mg/dL (0.55-1.3); GLUCOSE,RANDOM 192 mg/dL (74-106); POTASSIUM 4.9 mmol/L (3.5-5.1); SGOT/AST 18 U/L (15-37); SGPT/ALT 19 U/L (13-61); SODIUM 138 mmol/L (136-145); TOT PROT 5.4 g/dl (6.4-8.2)
[2018-04-24] MEDS ORDERED: PT OWN MED DRAWER 7, Y5N ONE (06:26)
[2018-04-24 07:09] LABS: SERUM IRON SATURATION 16 % (15-55); TOTAL IRON BINDING CAPACITY 243 ug/dL (250-450); UIBC 204 ug/dL (118-369)
[2018-04-24 08:09] LABS: SERUM IRON SATURATION 16 % (15-55); TOTAL IRON BINDING CAPACITY 273 ug/dL (250-450); UIBC 230 ug/dL (118-369)
[2018-04-24] MEDS: ASPIRIN 81 MG CHEWABLE TABLETS PO SCH (09:25)
[2018-04-24] MEDS: hydrALAZINE HCL 25 MG TABLET (FP) PO SCH (09:25)
[2018-04-24] MEDS: amLODIPine BESYLATE 5 MG TABLET (FP) PO SCH (09:25)
[2018-04-24] MEDS: HEPARIN NA (PORCINE) 5,000 UNITS/ML 1ML VIAL SQ SCH (09:25)
[2018-04-24] MEDS: LIPASE/PROTEASE/AMYLASE 36,000 UNIT CAPSULE PO SCH ×2 (09:28→13:20)
[2018-04-24] MEDS: DIVALPROEX SODIUM 250 MG TABLET E.C. PO SCH (09:28)
[2018-04-24] MEDS: clonazePAM 0.5 MG TABLET PO PRN (09:31)
[2018-04-24] MEDS: PANTOPRAZOLE 40 MG TABLET (FP) PO SCH (09:38)
[2018-04-24] MEDS: LOSARTAN 50MG/HCTZ 12.5MG 1 TAB (FP) PO SCH (09:38)
[2018-04-24] MEDS: MULTIVITAMINS (DAILY MVI) TABLET (FP) PO SCH (09:38)
[2018-04-24] MEDS: POLYETHYLENE GLYCOL 3350 119 GM BTL PO SCH (09:49)
--- NOTE | 2018-04-24 09:55 | DS ---
Physical Examination Vital Signs: Vital Signs Temperature 98.4 F 04/24/18 03:00 Pulse Rate 72 04/24/18 03:00 Respiratory Rate 18 04/24/18 03:00 Blood Pressure 161/70 04/24/18 03:00 O2 Sat by Pulse Oximetry (%) 95 04/23/18 19:55 Findings/Remarks: FEELING BETTER TODAY Constitutional: Yes: No Distress Eyes: Yes: WNL HENT: Yes: WNL Neck: Yes: WNL Cardiovascular: Yes: Regular Rate and Rhythm Respiratory: Yes: WNL Gastrointestinal: Yes: Soft Renal/: Yes: WNL Musculoskeletal: Yes: WNL Extremities: Yes: WNL Edema: No Peripheral Pulses WNL: Yes Integumentary: Yes: WNL Wound/Incision: Yes: Clean/Dry Neurological: Yes: WNL ...Motor Strength: WNL Psychiatric: Yes: WNL Labs: CBC, BMP 04/24/18 05:50 04/24/18 05:50 Discharge Summary Reason For Visit: HYPERVOLEMIA,HYPERGLYCEMIA,ABD PAIN,NAUSEA, Current Active Problems Abdominal pain (Acute) Anemia (Acute) Diabetes mellitus with autonomic neuropathy (Acute) Diabetes mellitus with neuropathy (Acute) Failure to thrive (Acute) Frequent falls (Acute) Gastroparesis due to DM (Acute) Hypervolemia (Acute) IBS (irritable bowel syndrome) (Acute) Nausea and vomiting (Acute) Procedures: Principal: CT SCAN Hospital Course: PATIENT TREATED FOR ACUTE ABD PAIN, FOUND TO HAVE PANCREATIC INSUFF. WITH IBS, TREATED WITH KLONOPIN AND XIFAXIN, IVF Condition: Improved - Instructions Diet, Activity, Other Instructions: YOU MUST SEE DR PORRAS IN 2 DAYS Disposition: VNS/HOME HEALTH CARE - Home Medications Comprehensive Discharge Medication List: Ambulatory Orders Aspirin [ASA -] 81 mg PO DAILY 09/09/15 Olmesartan/Hydrochlorothiazide [Benicar Hct 40-12.5MG Tab -] 1 tab PO DAILY Multivitamins [Multivit ([facility] Formulary)] 1 tab PO DAILY tab 08/19/17 Donepezil HCl 10 mg PO DAILY 02/01/18 Metoclopramide HCl 5 mg PO DAILY 02/01/18 Pramipexole Di-HCl [Pramipexole Dihydrochloride] 1 mg PO HS 02/01/18 Rosuvastatin [Crestor -] 10 mg PO HS 02/01/18 Insulin Glargine,Hum.rec.anlog [Lantus (10mL VIAL) -] 34 units SQ ACBK 02/02/18 Bupropion HCl [Wellbutrin Xl -] 150 mg PO DAILY #30 tab.sr.24h 02/09/18 Divalproex [Depakote -] 250 mg PO DAILY tablet.ec 02/09/18 Nifedipine ER [Procardia XL -] 60 mg PO DAILY #30 tab.er.24 02/09/18 Pantoprazole Sodium [Protonix -] 40 mg PO DAILY #30 tablet.ec 02/09/18 Polyethylene Glycol 3350 [Miralax 119 gm Btl -] 17 gm PO BID bottle 02/09/18 Divalproex [Depakote -] 250 mg PO DAILY #30 tablet.ec 04/24/18 Lipase/Protease/Amylase [Elaine Sweeney 36,000 Units Capsule] 1 cap PO TIDCM #90 capsule. 04/24/18 Rifaximin [Xifaxan -] 550 mg PO TID #90 tablet 04/24/18 clonazePAM [Klonopin -] 0.25 mg PO Q12H PRN #60 tablet MDD 2 04/24/18 hydrALAZINE HCL [Apresoline -] 25 mg PO BID #60 tablet 04/24/18
[2018-04-24 14:11] VITALS: BP 142/55; PULSE 74; TEMP 97.2
== END 2018-04-24 16:00 | disposition home health service (06) | DRG 74 ==
LOC: JER 09:02 → JERBED 13:07 → J8W 16:31
PROVIDERS: ADMIT Family Medicine; ATTEND Family Medicine
DX: E11.43 Type 2 diabetes mellitus with diabetic autonomic (poly)neuropathy (principal); T86.9 Complication of unspecified transplanted organ and tissue; K58.9 Irritable bowel syndrome, unspecified; E11.40 Type 2 diabetes mellitus with diabetic neuropathy, unspecified; E11.65 Type 2 diabetes mellitus with hyperglycemia; I10 Essential (primary) hypertension; K86.89 Other specified diseases of pancreas; G20 Parkinson's disease; K31.84 Gastroparesis; D64.9 Anemia, unspecified; R62.7 Adult failure to thrive; Z79.4 Long term (current) use of insulin; E87.70 Fluid overload, unspecified; R11.2 Nausea with vomiting, unspecified; E78.5 Hyperlipidemia, unspecified
CPT/HCPCS: 36415; 70450-TC; 71045-TC-FY; 72125-TC; 74177-TC; 80053; 80061; 81003; 81015; 82550; 82553; 82607; 82728; 82962; 83036; 83540; 83550; 83605; 83721; 83735; 83880; 84100; 84439; 84443; 84484; 85025; 85610; 85730; 86593; 86850; 86900; 86901; 87086; 93005; 93010; 97116-GP; 97161-GP; 99283-25; J0131; J1644; J7030; Q0162

== ENCOUNTER 2018-04-27 18:19 | Inpatient (IN) | payer OTHER ==
--- NOTE | 2018-04-27 18:54 | PDOC ---
Rapid Medical Evaluation Chief Complaint: Nausea/Vomiting Time Seen by Provider: 04/27/18 18:41 Medical Evaluation: Allergies Allergy/AdvReac Type Severity Reaction Status Date / Time valsartan [From Diovan] Allergy Mild Verified 04/27/18 18:41 Vital Signs Temp Pulse Resp BP Pulse Ox 97.9 F 91 H 18 203/76 H 100 04/27/18 18:42 04/27/18 18:42 04/27/18 18:42 04/27/18 18:42 04/27/18 18:42 04/27/18 18:47 I have performed a brief in-person evaluation of this patient. The patient presents with a chief complaint of: n/v this am. H/o IDDM, HTN, HLD , anxiety, dementia. S/p recent admission for abd w/ n/v and dizziness. Found to have multiple electrolyte derangements w/ hyperglycemia (HA1c >11). Seen by GI and given dx of ? IBS, scheduled to have ? scope in near future, Dc 4 days ago on pantoprazole and zofran w/ no relief per daughter Pertinent physical exam findings:connie uncomfortable, hypertensive I have ordered the following:ekg/labs The patient will proceed to the ED for further evaluation. Discharge Disposition - Diagnosis Nausea and vomiting Qualifiers: Vomiting type: unspecified Vomiting Intractability: intractable Qualified Code( s): R11.2 - Nausea with vomiting, unspecified - Referrals - Patient Instructions - Post Discharge Activity
[2018-04-27 19:47] LABS: BASO % 0.2 % (0-2.0); HEMATOCRIT 32.8 % (32.4-45.2); HEMOGLOBIN 11.3 GM/dL (10.7-15.3); LYMPH % 3.2 % (8-40); MCH 28.5 pg (25.7-33.7); MCHC 34.4 g/dl (32.0-36.0); MEAN CELL VOLUME 82.8 fl (80-96); MEAN PLT VOLUME 7.8 fl (7.5-11.1); MONO % 3.4 % (3.8-10.2); NEUT % 93.2 % (42.8-82.8); PLATELET COUNT 591 K/MM3 (134-434); RBC 3.96 M/mm3 (3.60-5.2); RDW 14.9 % (11.6-15.6); WHITE BLOOD COUNT 13.9 K/mm3 (4.0-10.0)
--- NOTE | 2018-04-27 20:14 | PDOC ---
Attending Attestation - HPI HPI: 04/27/18 20:49 The patient is a 78 year old female, with a significant past medical history of HTN, HLD, DM, diverticulosis, colonic/uterine polyps, urinary incontinence, who presents to the emergency department with, 2 days of epigastric abdominal pain with associated nausea, vomiting, and decreased PO intake (cannot take meds secondary to vomiting). She denies recent fevers, chills, headache or dizziness. She denies recent dysuria, frequency, urgency or hematuria. She denies recent chest pain or shortness of breath. Allergies: Valsartan. Primary Care Physician: Dr. Espana - Physicial Exam PE: 04/27/18 20:49 Agree with resident exam. <Ella Lan - Last Filed: 04/27/18 20:49> - Resident Resident Name: Yeison Calixto - ED Attending Attestation I have performed the following: I have examined & evaluated the patient, The case was reviewed & discussed with the resident, I agree w/resident's findings & plan - Critical Care Time Total Critical Care Time: 40 Critical Care Statement: The care of this patient involved high complexity decision making to prevent further life threatening deterioration of the patient 's condition and/or to evaluate & treat vital organ system(s) failure or risk of failure. - Medical Decision Making 04/28/18 06:41 78-year-old female with abdominal pain CT scan showed fecal impaction, no additional findings of surgical pathology noted Labs suggest dehydration with acute kidney injury and hyperglycemia Patient given IV fluid normal saline, regular insulin and will be admitted to medical service for further evaluation <Phoebe Gonzales - Last Filed: 04/28/18 06:43> Attestations - Attestations 04/27/18 20:49 Documentation prepared by Ella Lan, acting as medical clerical assistant for Phoebe Gonzales DO. <Ella Lan - Last Filed: 04/27/18 20:49>
[2018-04-27 20:23] LABS: ALBUMIN 3.6 g/dl (3.4-5.0); ALK PHOS 165 U/L (45-117); ANION GAP 17 MMOL/L (8-16); BILIRUBIN,TOTAL 0.9 mg/dL (0.2-1); BLOOD UREA NITROGEN 21 mg/dL (7-18); CALCIUM 9.9 mg/dL (8.5-10.1); CHLORIDE 89 mmol/L (98-107); CO2 27 mmol/L (21-32); CREATININE 1.6 mg/dL (0.55-1.3); LIPASE 97 U/L (73-393); POTASSIUM 3.8 mmol/L (3.5-5.1); SGOT/AST 36 U/L (15-37); SGPT/ALT 53 U/L (13-61); SODIUM 133 mmol/L (136-145); TOT PROT 7.6 g/dl (6.4-8.2)
[2018-04-27] MEDS ORDERED: METOCLOPRAMIDE HCL INJECTION 10 MG/2 ML VIAL IVPB ONE (20:23)
[2018-04-27 20:29] LABS: URINE APPEARANCE CLEAR; URINE BILIRUBIN NEGATIVE (<2.0 mg/dL); URINE COLOR STRAW; URINE GLUCOSE (UA) 3+ (NEGATIVE); URINE KETONE 1+ (NEGATIVE); URINE LEUK ESTERASE NEGATIVE (NEGATIVE); URINE NITRITE NEGATIVE (NEGATIVE); URINE PROTEIN 3+ (NEGATIVE); URINE UROBILINOGEN NEGATIVE mg/dL (0.2-1.0)
[2018-04-27 20:29] LABS: GLUCOSE,RANDOM 593 mg/dL (74-106)
[2018-04-27] MEDS ORDERED: FAMOTIDINE 20 MG/50 ML IVPB 20 MG/50 ML MG IVPB ONE ×2 (20:29→20:37)
--- NOTE | 2018-04-27 20:29 | PDOC ---
History of Present Illness - General Chief Complaint: Nausea/Vomiting Stated Complaint: RETURNING VOMITING Time Seen by Provider: 04/27/18 18:41 History Source: Patient, Family Exam Limitations: No Limitations - History of Present Illness Initial Comments: 04/27/18 20:26 The patient is a 78F with a PMH of IDDM, HTN, HLD, arthritis, anxiety who presents to the ER with complaints of abdominal pain. The patient is with her daughter who is providing the history. The patient states that she has had 2 days of worsening abdominal pain which is epigastric pain which is nonradiating , associated with chills, nausea, and vomiting. She has been unable to tolerate PO for 2 days. She was recently discharged from our facility for the same abdominal pain and diagnosed with IBD. She has not been able to keep any of her medications down due to the nausea and vomiting. She denies CP, SOB, or diarrhea. She states she was recently diagnosed with a UTI and currently on abx. Past History - Past Medical History Allergies/Adverse Reactions: Allergies Allergy/AdvReac Type Severity Reaction Status Date / Time valsartan [From Akeneovan] Allergy Mild Verified 04/27/18 18:41 Home Medications: Ambulatory Orders Aspirin [ASA -] 81 mg PO DAILY 09/09/15 Olmesartan/Hydrochlorothiazide [Benicar Hct 40-12.5MG Tab -] 1 tab PO DAILY Multivitamins [Multivit ([facility] Formulary)] 1 tab PO DAILY tab 08/19/17 Donepezil HCl 10 mg PO DAILY 02/01/18 Metoclopramide HCl 5 mg PO DAILY 02/01/18 Pramipexole Di-HCl [Pramipexole Dihydrochloride] 1 mg PO HS 02/01/18 Rosuvastatin [Crestor -] 10 mg PO HS 02/01/18 Insulin Glargine,Hum.rec.anlog [Lantus (10mL VIAL) -] 34 units SQ ACBK 02/02/18 Bupropion HCl [Wellbutrin Xl -] 150 mg PO DAILY #30 tab.sr.24h 02/09/18 Divalproex [Depakote -] 250 mg PO DAILY tablet.ec 02/09/18 Nifedipine ER [Procardia XL -] 60 mg PO DAILY #30 tab.er.24 02/09/18 Pantoprazole Sodium [Protonix -] 40 mg PO DAILY #30 tablet.ec 02/09/18 Polyethylene Glycol 3350 [Miralax 119 gm Btl -] 17 gm PO BID bottle 02/09/18 Divalproex [Depakote -] 250 mg PO DAILY #30 tablet.ec 04/24/18 Lipase/Protease/Amylase [Elaine Sweeney 36,000 Units Capsule] 1 cap PO TIDCM #90 capsule. 04/24/18 Rifaximin [Xifaxan -] 550 mg PO TID #90 tablet 04/24/18 clonazePAM [Klonopin -] 0.25 mg PO Q12H PRN #60 tablet MDD 2 04/24/18 hydrALAZINE HCL [Apresoline -] 25 mg PO BID #60 tablet 04/24/18 Anemia: No Asthma: No Cancer: No Cardiac Disorders: No CVA: No COPD: No CHF: No DVT: No Dementia: No Diabetes: Yes GI Disorders: Yes (DIVERTICULOSIS,COLONIC POLYPS,HEMORRHOIDS,) Disorders: Yes (UTERINE POLYPS,URINARY INCONTINENCE) HTN: Yes Hypercholesterolemia: Yes Liver Disease: No Seizures: No Thyroid Disease: No - Surgical History Abdominal Surgery: (abdominoplasty 15 yrs ago (tissue became necrotic)) Appendectomy: Yes Cardiac Surgery: No Cholecystectomy: Yes Lung Surgery: No Neurologic Surgery: No Orthopedic Surgery: No - Immunization History Immunization Up to Date: Yes - Suicide/Smoking/Psychosocial Hx Smoking Status: No Smoking History: Smoker current status UNK Have you smoked in the past 12 months: No Number of Cigarettes Smoked Daily: 0 Hx Alcohol Use: No Drug/Substance Use Hx: No Substance Use Type: None Hx Substance Use Treatment: No Review of Systems - Review of Systems Able to Perform ROS?: Yes Comments:: 04/27/18 20:26 GENERAL/CONSTITUTIONAL: Positive for chills. No fever. No weakness. HEAD, EYES, EARS, NOSE AND THROAT: No change in vision. No ear pain or discharge. No sore throat. CARDIOVASCULAR: No chest pain, palpitations, or lightheadedness. RESPIRATORY: No cough, wheezing, shortness of breath, or hemoptysis. GASTROINTESTINAL: Positive for nausea, vomiting, and abdominal pain. No diarrhea. GENITOURINARY: No dysuria, frequency, hematuria, or change in urination. MUSCULOSKELETAL: No joint or muscle swelling or pain. No neck or back pain. SKIN: No rash or lesions. NEUROLOGIC: No headache, numbness, tingling, focal weakness, loss of consciousness, or change in strength/sensation. Is the patient limited Telugu proficient: No *Physical Exam - Vital Signs Last Vital Signs Temp Pulse Resp BP Pulse Ox 97.9 F 91 H 18 203/76 H 100 04/27/18 18:42 04/27/18 18:42 04/27/18 18:42 04/27/18 18:42 04/27/18 18:42 - Physical Exam Comments: 04/27/18 20:26 GENERAL: Well developed, well nourished. Awake and alert. No acute distress. HEENT: Normocephalic, atraumatic. Hearing grossly normal. Moist mucous membranes. PERRLA, EOMI. No conjunctival pallor. Sclera are non-icteric. NECK: Supple. Full ROM. No JVD. CARDIOVASCULAR: Regular rate and rhythm. No murmurs, rubs, or gallops. PULMONARY: No evidence of respiratory distress. Lungs clear to auscultation bilaterally. No wheezing, rales or rhonchi. ABDOMINAL: Soft. TTP over epigastrium with + Leon's. Non-distended. No rebound or guarding. GENITOURINARY: No CVA tenderness bilaterally. MUSCULOSKELETAL: Normal range of motion at all joints. No bony deformities or tenderness. EXTREMITIES: No cyanosis. No clubbing. No edema. No calf tenderness or swelling. SKIN: Warm and dry. Normal capillary refill. No rashes. No jaundice. NEUROLOGICAL: Alert, awake, appropriate. Cranial nerves 2-12 intact. Normal speech. Gait is normal without ataxia. PSYCHIATRIC: Cooperative. Good eye contact. Appropriate mood and affect. Moderate Sedation - Procedure Monitoring Vital Signs: Procedure Monitoring Vital Signs Temperature 97.9 F 04/27/18 18:42 Pulse Rate 91 H 04/27/18 18:42 Respiratory Rate 18 04/27/18 18:42 Blood Pressure 203/76 H 04/27/18 18:42 O2 Sat by Pulse Oximetry (%) 100 04/27/18 18:42 ED Treatment Course - LABORATORY CBC & Chemistry Diagram: 04/28/18 07:45 04/28/18 07:45 - ADDITIONAL ORDERS Additional order review: Laboratory Results 04/27/18 19:36 Sodium 133 L Potassium 3.8 Chloride 89 L Carbon Dioxide 27 Anion Gap 17 H BUN 21 H Creatinine 1.6 H Creat Clearance w eGFR 31.34 Calcium 9.9 Total Bilirubin 0.9 AST 36 ALT 53 Alkaline Phosphatase 165 H Creatine Kinase 93 Troponin I 0.05 Total Protein 7.6 Albumin 3.6 Lipase 97 04/27/18 19:36 RBC 3.96 MCV 82.8 MCHC 34.4 RDW 14.9 MPV 7.8 Neutrophils % 93.2 H D Lymphocytes % 3.2 L D Monocytes % 3.4 L Eosinophils % 0.0 D Basophils % 0.2 - RADIOLOGY Radiology Studies Ordered: Category Date Time Status ABDOMEN & PELVIS CT WITH CONTR [CT] Stat CT Scan 04/27/18 20:23 Ordered Medical Decision Making - Medical Decision Making 04/27/18 20:31 The patient is a 78F with a PMH of HTN, HLD, and DM who presents to the ER with 2 days of worsening abdominal pain and not tolerating PO concerning for DKA, pancreatitis, diverticulitis, PUD. Giving meds for symptomatic relief and repeating CT as symptoms have changed and patient is tender on exam. Pending labs and imaging. 04/27/18 22:00 Labs concerning for hyperosmolar state vs DKA. Will give insulin and fluids and monitor closely. VBG ordered. 04/28/18 01:03 CTAP negative for acute pathology but shows constipation. Microblogged for admission 2/2 abdominal pain and not tolerating PO. 04/28/18 01:42 I have endorsed the patient to [facility] for admission under Dr. Espana. *DC/Admit/Observation/Transfer Diagnosis at time of Disposition: Nausea and vomiting Qualifiers: Vomiting type: unspecified Vomiting Intractability: intractable Qualified Code( s): R11.2 - Nausea with vomiting, unspecified - Discharge Dispostion Condition at time of disposition: Guarded Decision to Admit order: Yes - Referrals - Patient Instructions - Post Discharge Activity
[2018-04-27] MEDS ORDERED: SODIUM CHLORIDE 1,000 ML IV SCH (20:30)
[2018-04-27] MEDS ORDERED: METOCLOPRAMIDE HCL INJECTION 10 MG/2 ML VIAL ONE (20:36)
[2018-04-27 21:34] LABS: PLATELET ESTIMATE INCREASED
[2018-04-27 21:42] LABS: ACETONE SERUM POSITIVE SMALL 1+ (NEGATIVE)
[2018-04-27] MEDS ORDERED: INSULIN REGULAR HUMAN 100 UNITS/ML *VIAL IVPUSH ONE (21:58)
[2018-04-27] MEDS ORDERED: SODIUM CHLORIDE 0.9% 1000 ML INFUS.BAG IV ONE (22:00)
[2018-04-27] MEDS ORDERED: INSULIN REGULAR HUMAN 100 UNITS/ML *VIAL ONE (22:39)
[2018-04-28 00:04] LABS: VENOUS PC02 48.2 mmHg (38-52); VENOUS PH 7.4 (7.32-7.42)
--- NOTE | 2018-04-28 04:25 | HP ---
Admitting History and Physical - Primary Care Physician PCP: Ro Espana - Admission Chief Complaint: Abdominal Pain, Nausea, Vomiting History of Present Illness: This is a 78 y/o woman with a PMHx of IDDM, HTN, HLD, Arthritis, Anxiety. Who presents to the ED with complaints of abdominal pain. The patient is with her daughter who is providing the history. The patient states that she has had 2 days of worsening abdominal pain which is epigastric pain which is nonradiating , associated with chills, nausea, and vomiting. She has been unable to tolerate PO for 2 days. She was recently discharged from our facility for the same abdominal pain and diagnosed with IBD. She has not been able to keep any of her medications down due to the nausea and vomiting. She denies CP, SOB, or diarrhea. She states she was recently diagnosed with a UTI and currently on abx. History Source: Family Member Limitations to Obtaining History: Clinical Condition - Past Medical History [employer] HAND: Yes: Dementia, Peripheral Neuropathy, Parkinson's Cardiovascular: Yes: HTN, Hyperlipdemia Gastrointestinal: Yes: Diverticulosis Psych: Yes: Anxiety Musculoskeletal: Yes: Osteoarthritis Endocrine: Yes: Diabetes Mellitus - Past Surgical History Past Surgical History: Yes: Appendectomy, Cholecystectomy, - Smoking History Smoking history: Smoker current status UNK Have you smoked in the past 12 months: No Aproximately how many cigarettes per day: 0 - Alcohol/Substance Use Hx Alcohol Use: No - Social History Usual Living Arrangement: Yes: With Child 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 History of Recent Travel: No Home Medications - Allergies Allergies/Adverse Reactions: Allergies Allergy/AdvReac Type Severity Reaction Status Date / Time valsartan [From Diovan] Allergy Mild Verified 04/27/18 18:41 - Home Medications Home Medications: Ambulatory Orders Aspirin [ASA -] 81 mg PO DAILY 09/09/15 Olmesartan/Hydrochlorothiazide [Benicar Hct 40-12.5MG Tab -] 1 tab PO DAILY Multivitamins [Multivit ([facility] Formulary)] 1 tab PO DAILY tab 08/19/17 Donepezil HCl 10 mg PO DAILY 02/01/18 Metoclopramide HCl 5 mg PO DAILY 02/01/18 Pramipexole Di-HCl [Pramipexole Dihydrochloride] 1 mg PO HS 02/01/18 Rosuvastatin [Crestor -] 10 mg PO HS 02/01/18 Insulin Glargine,Hum.rec.anlog [Lantus (10mL VIAL) -] 34 units SQ ACBK 02/02/18 Bupropion HCl [Wellbutrin Xl -] 150 mg PO DAILY #30 tab.sr.24h 02/09/18 Divalproex [Depakote -] 250 mg PO DAILY tablet.ec 02/09/18 Nifedipine ER [Procardia XL -] 60 mg PO DAILY #30 tab.er.24 02/09/18 Pantoprazole Sodium [Protonix -] 40 mg PO DAILY #30 tablet.ec 02/09/18 Polyethylene Glycol 3350 [Miralax 119 gm Btl -] 17 gm PO BID bottle 02/09/18 Divalproex [Depakote -] 250 mg PO DAILY #30 tablet.ec 04/24/18 Lipase/Protease/Amylase [Elaine Sweeney 36,000 Units Capsule] 1 cap PO TIDCM #90 capsule. 04/24/18 Rifaximin [Xifaxan -] 550 mg PO TID #90 tablet 04/24/18 clonazePAM [Klonopin -] 0.25 mg PO Q12H PRN #60 tablet MDD 2 04/24/18 hydrALAZINE HCL [Apresoline -] 25 mg PO BID #60 tablet 04/24/18 Family Disease History - Family Disease History Family History: Unable to Obtain Review of Systems - Review of Systems Constitutional: reports: Loss of Appetite Eyes: reports: No Symptoms HENT: reports: No Symptoms Neck: reports: No Symptoms Cardiovascular: reports: Edema Respiratory: reports: No Symptoms Gastrointestinal: reports: Abdominal Pain, Constipation, Nausea, Vomiting. denies: Diarrhea, Melena, Rectal Bleeding, Vomiting Blood Genitourinary: reports: No Symptoms Breasts: reports: No Symptoms Reported Musculoskeletal: reports: No Symptoms Integumentary: reports: No Symptoms Neurological: reports: No Symptoms Endocrine: reports: No Symptoms Hematology/Lymphatic: reports: No Symptoms Psychiatric: reports: No Symptoms Physical Examination Vital Signs: Vital Signs Temperature 99.4 F 04/28/18 02:41 Pulse Rate 82 04/28/18 02:41 Respiratory Rate 17 04/28/18 02:41 Blood Pressure 129/54 L 04/28/18 02:41 O2 Sat by Pulse Oximetry (%) 95 04/28/18 02:41 Constitutional: Yes: No Distress, Calm Eyes: Yes: WNL, Conjunctiva Clear, EOM Intact, PERRL HENT: Yes: Atraumatic, Normocephalic, Other (mucousa dry) Neck: Yes: WNL, Supple, Trachea Midline Cardiovascular: Yes: WNL, Regular Rate and Rhythm, S1, S2 Respiratory: Yes: WNL, Regular, CTA Bilaterally Gastrointestinal: Yes: Soft, Hypoactive Bowel Sounds, Palpable Mass (to suprapubic region- non tender), Tenderness, Other (healed surgical scar to right mid lower abdomen) Renal/: Yes: Schultz Present (yellow urine in tubing and drainage bag) Breast(s): Yes: WNL Musculoskeletal: Yes: WNL Edema: Yes Edema: LLE: 1+, RLE: 2+ Peripheral Pulses WNL: Yes Neurological: Yes: WNL, Alert, Oriented, Cran Nerves II-XII Intact ...Motor Strength: WNL Psychiatric: Yes: WNL, Alert, Oriented Labs: CBC, BMP 04/27/18 19:36 04/27/18 19:36 Laboratory Results - last 24 hr 04/27/18 04/27/18 04/27/18 19:36 19:36 20:00 WBC 13.9 H RBC 3.96 Hgb 11.3 Hct 32.8 D MCV 82.8 MCH 28.5 MCHC 34.4 RDW 14.9 Plt Count 591 H D MPV 7.8 Absolute Neuts (auto) 13.0 H Neutrophils % 93.2 H D Neutrophils % (Manual) 91.0 H Band Neutrophils % 6.0 Lymphocytes % 3.2 L D Lymphocytes % (Manual) 3.0 L Monocytes % 3.4 L Monocytes % (Manual) 0 L Eosinophils % 0.0 D Eosinophils % (Manual) 0.0 Basophils % 0.2 Basophils % (Manual) 0.0 Nucleated RBC % 0 Platelet Estimate Increased Platelet Comment No clumping noted VBG pH POC VBG pCO2 POC VBG pO2 Mixed VBG HCO3 Sodium 133 L Potassium 3.8 Chloride 89 L Carbon Dioxide 27 Anion Gap 17 H BUN 21 H Creatinine 1.6 H Creat Clearance w eGFR 31.34 POC Glucometer Random Glucose 593 H* Calcium 9.9 Total Bilirubin 0.9 AST 36 ALT 53 Alkaline Phosphatase 165 H Creatine Kinase 93 Troponin I 0.05 Total Protein 7.6 Albumin 3.6 Lipase 97 Urine Color Straw Urine Appearance Clear Urine pH 7.0 Ur Specific [place] 1.013 Urine Protein 3+ H Urine Glucose (UA) 3+ H Urine Ketones 1+ H Urine Blood Negative Urine Nitrite Negative Urine Bilirubin Negative Urine Urobilinogen Negative Ur Leukocyte Esterase Negative Urine WBC (Auto) 1 Urine RBC (Auto) <1 Acetone, Qual Positive small 1+ H 04/27/18 04/27/18 04/28/18 23:45 23:55 02:47 WBC RBC Hgb Hct MCV MCH MCHC RDW Plt Count MPV Absolute Neuts (auto) Neutrophils % Neutrophils % (Manual) Band Neutrophils % Lymphocytes % Lymphocytes % (Manual) Monocytes % Monocytes % (Manual) Eosinophils % Eosinophils % (Manual) Basophils % Basophils % (Manual) Nucleated RBC % Platelet Estimate Platelet Comment VBG pH 7.40 POC VBG pCO2 48.2 POC VBG pO2 49.0 H Mixed VBG HCO3 29.5 H Sodium Potassium Chloride Carbon Dioxide Anion Gap BUN Creatinine Creat Clearance w eGFR POC Glucometer 429 346 Random Glucose Calcium Total Bilirubin AST ALT Alkaline Phosphatase Creatine Kinase Troponin I Total Protein Albumin Lipase Urine Color Urine Appearance Urine pH Ur Specific [place] Urine Protein Urine Glucose (UA) Urine Ketones Urine Blood Urine Nitrite Urine Bilirubin Urine Urobilinogen Ur Leukocyte Esterase Urine WBC (Auto) Urine RBC (Auto) Acetone, Qual 04/28/18 05:58 WBC RBC Hgb Hct MCV MCH MCHC RDW Plt Count MPV Absolute Neuts (auto) Neutrophils % Neutrophils % (Manual) Band Neutrophils % Lymphocytes % Lymphocytes % (Manual) Monocytes % Monocytes % (Manual) Eosinophils % Eosinophils % (Manual) Basophils % Basophils % (Manual) Nucleated RBC % Platelet Estimate Platelet Comment VBG pH POC VBG pCO2 POC VBG pO2 Mixed VBG HCO3 Sodium Potassium Chloride Carbon Dioxide Anion Gap BUN Creatinine Creat Clearance w eGFR POC Glucometer 322 Random Glucose Calcium Total Bilirubin AST ALT Alkaline Phosphatase Creatine Kinase Troponin I Total Protein Albumin Lipase Urine Color Urine Appearance Urine pH Ur Specific [place] Urine Protein Urine Glucose (UA) Urine Ketones Urine Blood Urine Nitrite Urine Bilirubin Urine Urobilinogen Ur Leukocyte Esterase Urine WBC (Auto) Urine RBC (Auto) Acetone, Qual Imaging - Results Chest X-ray: Image Reviewed Cat Scan: Report Reviewed, Image Reviewed Problem List - Problems (1) Uncontrolled diabetes mellitus Assessment/Plan: Likely due to hypovalemia BGMs ISS HgbA1c in am Monitor renal function Code(s): E11.65 - TYPE 2 DIABETES MELLITUS WITH HYPERGLYCEMIA Qualifiers: Diabetes mellitus type: type 2 (2) Abdominal pain Assessment/Plan: Likely secondary fecal impaction CTAP- rectal fecal impaction, no large or small bowel obstruction. sigmoid and left colon diverticulosis, urinary bladder slightly overdistended Appreciate GI consult Clear Liquid Diet Monitor vitals Code(s): R10.9 - UNSPECIFIED ABDOMINAL PAIN Qualifiers: Abdominal location: unspecified location Qualified Code(s): R10.9 - Unspecified abdominal pain (3) Nausea and vomiting Assessment/Plan: See above Reglan given in ED Continue antiemetic Gentle IVF Monitor BMP Monitor vitals Code(s): R11.2 - NAUSEA WITH VOMITING, UNSPECIFIED Qualifiers: Vomiting type: unspecified Vomiting Intractability: intractable Qualified Code(s): R11.2 - Nausea with vomiting, unspecified (4) JASPER (acute kidney injury) Assessment/Plan: Likely secondary to Hypovalemia NS bolus given in ED Continue gentle IVF Encourage PO intake as tolerated Monitor BMP Code(s): N17.9 - ACUTE KIDNEY FAILURE, UNSPECIFIED (5) Arthritis Assessment/Plan: Continue home med Code(s): M19.90 - UNSPECIFIED OSTEOARTHRITIS, UNSPECIFIED SITE (6) HLD (hyperlipidemia) Assessment/Plan: Continue home med Monitor LFTs Code(s): E78.5 - HYPERLIPIDEMIA, UNSPECIFIED (7) Anemia Assessment/Plan: Stable Hgb 11.3 Will transfuse if Hgb < 7.0 Monitor CBC Code(s): D64.9 - ANEMIA, UNSPECIFIED (8) HTN (hypertension) Assessment/Plan: Suboptimal Likely due to drug holiday (intractable vomiting) Monitor BP Continue home meds Monitor renal function Code(s): I10 - ESSENTIAL (PRIMARY) HYPERTENSION (9) Dementia Assessment/Plan: Continue home meds Fall precautions Code(s): F03.90 - UNSPECIFIED DEMENTIA WITHOUT BEHAVIORAL DISTURBANCE Assessment/Plan This is a 78 y/o woman with a PMHx of: IDDM, HTN, HLD, Arthritis, Anxiety. Admitted for Uncontrolled DM, Intractable Abdominal Pain, Vomiting, JASPER for further evaluation of their emergent condition. Plan: See Problem List FEN NS@42ml/hr Replete lytes prn Clear Diabetic, Low Na Diet DVT ppx OOB SCDs Heparin SQ Dispo: Requires Inpatient Care Visit type - Emergency Visit Emergency Visit: Yes ED Registration Date: 04/27/18 Care time: The patient presented to the Emergency Department on the above date and was hospitalized for further evaluation of their emergent condition. - New Patient This patient is new to me today: Yes Date on this admission: 04/28/18 - Critical Care Critical Care patient: No
[2018-04-28] MEDS ORDERED: SODIUM CHLORIDE 1,000 ML IV SCH ×2 (04:30→07:04)
[2018-04-28] MEDS: INSULIN SLIDING SCALE (NOVOLOG) 1 VIAL SQ SCH ×4 (06:40→21:25)
[2018-04-28] MEDS ORDERED: INSULIN (NOVOLOG) ASPART 100 UNITS/ML 10ML VIAL ONE ×2 (07:10→11:38)
[2018-04-28] MEDS ORDERED: MAGNESIUM CITRATE 300 ML BOTTLE PO ONE (09:09)
--- NOTE | 2018-04-28 09:09 | PN ---
Progress Note, Physician Chief Complaint: Abdominal Pain DM History of Present Illness: Previous notes and events reviewed awake and alert NAD sts abdominal pain is improved since admission, complain of nausea with ingesting food - Current Medication List Current Medications: Active Medications Heparin Sodium (Porcine) (Heparin -) 5,000 unit SQ BID JOYCE Sodium Chloride (Normal Saline -) 1,000 mls @ 42 mls/hr IV ASDIR JOYCE Last Admin: 04/28/18 07:55 Dose: 42 mls/hr Insulin Aspart (Novolog Vial Sliding Scale -) 1 vial SQ ACHS [facility]; Protocol Last Admin: 04/28/18 06:40 Dose: 8 units - Objective Vital Signs: Vital Signs Temperature 99.4 F 04/28/18 06:00 Pulse Rate 84 04/28/18 06:00 Respiratory Rate 20 04/28/18 06:00 Blood Pressure 149/53 L 04/28/18 06:00 O2 Sat by Pulse Oximetry (%) 96 04/28/18 04:36 Constitutional: Yes: Calm, Mild Distress Eyes: Yes: Conjunctiva Clear HENT: Yes: Normocephalic Cardiovascular: Yes: Regular Rate and Rhythm Respiratory: Yes: Regular, CTA Bilaterally Gastrointestinal: Yes: Normal Bowel Sounds, Soft, Tenderness (diffuse tenderness on palpation), Other (scar noted) Musculoskeletal: Yes: Muscle Weakness Neurological: Yes: Alert, Pre-Existing Deficit Psychiatric: Yes: Alert Labs: Laboratory Results - last 24 hr 04/27/18 04/27/18 04/27/18 19:36 19:36 20:00 WBC 13.9 H RBC 3.96 Hgb 11.3 Hct 32.8 D MCV 82.8 MCH 28.5 MCHC 34.4 RDW 14.9 Plt Count 591 H D MPV 7.8 Absolute Neuts (auto) 13.0 H Neutrophils % 93.2 H D Neutrophils % (Manual) 91.0 H Band Neutrophils % 6.0 Lymphocytes % 3.2 L D Lymphocytes % (Manual) 3.0 L Monocytes % 3.4 L Monocytes % (Manual) 0 L Eosinophils % 0.0 D Eosinophils % (Manual) 0.0 Basophils % 0.2 Basophils % (Manual) 0.0 Nucleated RBC % 0 Platelet Estimate Increased Platelet Comment No clumping noted VBG pH POC VBG pCO2 POC VBG pO2 Mixed VBG HCO3 Sodium 133 L Potassium 3.8 Chloride 89 L Carbon Dioxide 27 Anion Gap 17 H BUN 21 H Creatinine 1.6 H Creat Clearance w eGFR 31.34 POC Glucometer Random Glucose 593 H* Calcium 9.9 Total Bilirubin 0.9 AST 36 ALT 53 Alkaline Phosphatase 165 H Creatine Kinase 93 Troponin I 0.05 Total Protein 7.6 Albumin 3.6 Lipase 97 Urine Color Straw Urine Appearance Clear Urine pH 7.0 Ur Specific [place] 1.013 Urine Protein 3+ H Urine Glucose (UA) 3+ H Urine Ketones 1+ H Urine Blood Negative Urine Nitrite Negative Urine Bilirubin Negative Urine Urobilinogen Negative Ur Leukocyte Esterase Negative Urine WBC (Auto) 1 Urine RBC (Auto) <1 Acetone, Qual Positive small 1+ H 04/27/18 04/27/18 04/28/18 23:45 23:55 02:47 WBC RBC Hgb Hct MCV MCH MCHC RDW Plt Count MPV Absolute Neuts (auto) Neutrophils % Neutrophils % (Manual) Band Neutrophils % Lymphocytes % Lymphocytes % (Manual) Monocytes % Monocytes % (Manual) Eosinophils % Eosinophils % (Manual) Basophils % Basophils % (Manual) Nucleated RBC % Platelet Estimate Platelet Comment VBG pH 7.40 POC VBG pCO2 48.2 POC VBG pO2 49.0 H Mixed VBG HCO3 29.5 H Sodium Potassium Chloride Carbon Dioxide Anion Gap BUN Creatinine Creat Clearance w eGFR POC Glucometer 429 346 Random Glucose Calcium Total Bilirubin AST ALT Alkaline Phosphatase Creatine Kinase Troponin I Total Protein Albumin Lipase Urine Color Urine Appearance Urine pH Ur Specific [place] Urine Protein Urine Glucose (UA) Urine Ketones Urine Blood Urine Nitrite Urine Bilirubin Urine Urobilinogen Ur Leukocyte Esterase Urine WBC (Auto) Urine RBC (Auto) Acetone, Qual 04/28/18 05:58 WBC RBC Hgb Hct MCV MCH MCHC RDW Plt Count MPV Absolute Neuts (auto) Neutrophils % Neutrophils % (Manual) Band Neutrophils % Lymphocytes % Lymphocytes % (Manual) Monocytes % Monocytes % (Manual) Eosinophils % Eosinophils % (Manual) Basophils % Basophils % (Manual) Nucleated RBC % Platelet Estimate Platelet Comment VBG pH POC VBG pCO2 POC VBG pO2 Mixed VBG HCO3 Sodium Potassium Chloride Carbon Dioxide Anion Gap BUN Creatinine Creat Clearance w eGFR POC Glucometer 322 Random Glucose Calcium Total Bilirubin AST ALT Alkaline Phosphatase Creatine Kinase Troponin I Total Protein Albumin Lipase Urine Color Urine Appearance Urine pH Ur Specific [place] Urine Protein Urine Glucose (UA) Urine Ketones Urine Blood Urine Nitrite Urine Bilirubin Urine Urobilinogen Ur Leukocyte Esterase Urine WBC (Auto) Urine RBC (Auto) Acetone, Qual - ....Imaging Cat Scan: Report Reviewed <Audrey Pastrana - Last Filed: 04/28/18 09:28> - Current Medication List Current Medications: Active Medications Aspirin (Ecotrin -) 81 mg PO DAILY [facility] Bupropion HCl (Wellbutrin Xl -) 150 mg PO DAILY [facility] Divalproex Sodium (Depakote -) 250 mg PO DAILY [facility] Donepezil HCl (Aricept -) 10 mg PO DAILY [facility] Heparin Sodium (Porcine) (Heparin -) 5,000 unit SQ BID JOYCE Hydralazine HCl (Apresoline -) 25 mg PO BID [facility] Sodium Chloride (Normal Saline -) 1,000 mls @ 42 mls/hr IV ASDIR [facility] Last Admin: 04/28/18 07:55 Dose: 42 mls/hr Insulin Aspart (Novolog Vial Sliding Scale -) 1 vial SQ ACHS [facility]; Protocol Last Admin: 04/28/18 06:40 Dose: 8 units Multivitamins/Minerals/Vitamin C (Tab-A-Vit -) 1 tab PO DAILY [facility] Nifedipine (Procardia Xl -) 60 mg PO DAILY [facility] Pancrelipase (Creon Dr 36,000 Units Capsule) 1 cap PO TIDCM [facility] Pantoprazole Sodium (Protonix Iv) 40 mg IVPB DAILY [facility] Polyethylene Glycol (Miralax (For Daily Use) -) 17 gm PO BID JOY[facility] Pramipexole Dihydrochloride (Mirapex -) 1 mg PO HS [facility] Rifaximin (Xifaxan -) 550 mg PO BID JOYCE Rosuvastatin Calcium (Crestor -) 10 mg PO HS [facility] - Objective Vital Signs: Vital Signs Temperature 99.4 F 04/28/18 06:00 Pulse Rate 84 04/28/18 06:00 Respiratory Rate 20 04/28/18 06:00 Blood Pressure 149/53 L 04/28/18 06:00 O2 Sat by Pulse Oximetry (%) 96 04/28/18 04:36 Labs: CBC, BMP 04/28/18 07:45 04/28/18 07:45 <Madhu Ibanez - Last Filed: 04/28/18 10:09> Problem List - Problems (1) HLD (hyperlipidemia) Assessment/Plan: -cont with crestor 10mg qhs Code(s): E78.5 - HYPERLIPIDEMIA, UNSPECIFIED (2) Nausea and vomiting Assessment/Plan: -reglan 10mg IVPB x 1 dose -full liquid diet, advance as tolerated Code(s): R11.2 - NAUSEA WITH VOMITING, UNSPECIFIED Qualifiers: Vomiting type: unspecified Vomiting Intractability: intractable Qualified Code(s): R11.2 - Nausea with vomiting, unspecified (3) Abdominal pain Assessment/Plan: -Abdominal CT scan show fecal impaction, no acute pathology -citroma 1 bottle ordered x 1 then will start miralax bid -cont with xifaxin and creon Code(s): R10.9 - UNSPECIFIED ABDOMINAL PAIN Qualifiers: Abdominal location: unspecified location Qualified Code(s): R10.9 - Unspecified abdominal pain (4) Uncontrolled diabetes mellitus Assessment/Plan: -BGM ACHS, ISS -HgA1c ordered Code(s): E11.65 - TYPE 2 DIABETES MELLITUS WITH HYPERGLYCEMIA Qualifiers: Diabetes mellitus type: type 2 <Audrey Pastrana - Last Filed: 04/28/18 09:28> - Problems (1) Nausea and vomiting Code(s): R11.2 - NAUSEA WITH VOMITING, UNSPECIFIED Qualifiers: Vomiting type: unspecified Vomiting Intractability: intractable Qualified Code(s): R11.2 - Nausea with vomiting, unspecified (2) Abdominal pain Code(s): R10.9 - UNSPECIFIED ABDOMINAL PAIN Qualifiers: Abdominal location: unspecified location Qualified Code(s): R10.9 - Unspecified abdominal pain <Madhu Ibanez - Last Filed: 04/28/18 10:09>
[2018-04-28 09:10] LABS: BASO % 0.2 % (0-2.0); EOS % 0.1 % (0-4.5); HEMATOCRIT 25.8 % (32.4-45.2); LYMPH % 11.1 % (8-40); MCH 28.7 pg (25.7-33.7); MCHC 34.8 g/dl (32.0-36.0); MEAN CELL VOLUME 82.5 fl (80-96); NEUT % 79.6 % (42.8-82.8); PLATELET COUNT 463 K/MM3 (134-434); RBC 3.13 M/mm3 (3.60-5.2); RDW 15.1 % (11.6-15.6); WHITE BLOOD COUNT 13.5 K/mm3 (4.0-10.0)
--- NOTE | 2018-04-28 09:22 | CON.GI ---
Consult Consult Specialty:: GI Referred by:: Rayne Lloyd NP Reason for Consultation:: Abdominal pain - History of Present Illness Chief Complaint: Abdominal pain History of Present Illness: Patient is a 78 y/o female with past medical history of IDDM, HTN, HLD, arthritis, anxiety. Patient presented to ER for complaints of sharp, diffuse abdominal pain accompanied with nausea and vomiting. Patient was recently discharged from [facility] for same chief complaint with diagnosis of IBS with constipation. Abdominal CT scan performed and shows fecal impaction, no acute pathology noted. Patient states that she has weight loss of 30lbs in 2 months. On hospital records the weight is stble at 130. Denies dysphagia, diarrhea, rectal bleeding, melena. 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: Dementia, Peripheral Neuropathy, Parkinson's Cardio/Vascular: Yes: HTN, Hyperlipdemia Gastrointestinal: Yes: Diverticulosis Psych: Yes: Anxiety Musculoskeletal: Yes: Osteoarthritis Endocrine: Yes: Diabetes Mellitus - Past Surgical History Past Surgical History: Yes: Appendectomy, Cholecystectomy, - Alcohol/Substance Use Hx Alcohol Use: No - Smoking History Smoking history: Smoker current status UNK Have you smoked in the past 12 months: No Aproximately how many cigarettes per day: 0 - Social History Usual Living Arrangement: With Significant Other 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 History of Recent Travel: No Home Medications - Allergies Allergies/Adverse Reactions: Allergies Allergy/AdvReac Type Severity Reaction Status Date / Time valsartan [From [employer]] Allergy Mild Verified 04/27/18 18:41 - Home Medications Home Medications: Ambulatory Orders Aspirin [ASA -] 81 mg PO DAILY 09/09/15 Olmesartan/Hydrochlorothiazide [Benicar Hct 40-12.5MG Tab -] 1 tab PO DAILY Multivitamins [Multivit ([facility] Formulary)] 1 tab PO DAILY tab 08/19/17 Donepezil HCl 10 mg PO DAILY 02/01/18 Metoclopramide HCl 5 mg PO DAILY 02/01/18 Pramipexole Di-HCl [Pramipexole Dihydrochloride] 1 mg PO HS 02/01/18 Rosuvastatin [Crestor -] 10 mg PO HS 02/01/18 Insulin Glargine,Hum.rec.anlog [Lantus (10mL VIAL) -] 34 units SQ ACBK 02/02/18 Bupropion HCl [Wellbutrin Xl -] 150 mg PO DAILY #30 tab.sr.24h 02/09/18 Divalproex [Depakote -] 250 mg PO DAILY tablet.ec 02/09/18 Nifedipine ER [Procardia XL -] 60 mg PO DAILY #30 tab.er.24 02/09/18 Pantoprazole Sodium [Protonix -] 40 mg PO DAILY #30 tablet.ec 02/09/18 Polyethylene Glycol 3350 [Miralax 119 gm Btl -] 17 gm PO BID bottle 02/09/18 Divalproex [Depakote -] 250 mg PO DAILY #30 tablet.ec 04/24/18 Lipase/Protease/Amylase [Elaine Sweeney 36,000 Units Capsule] 1 cap PO TIDCM #90 capsule. 04/24/18 Rifaximin [Xifaxan -] 550 mg PO TID #90 tablet 04/24/18 clonazePAM [Klonopin -] 0.25 mg PO Q12H PRN #60 tablet MDD 2 04/24/18 hydrALAZINE HCL [Apresoline -] 25 mg PO BID #60 tablet 04/24/18 Review of Systems - Review of Systems Constitutional: reports: No Symptoms Eyes: reports: No Symptoms HENT: reports: No Symptoms Neck: reports: No Symptoms Cardiovascular: reports: No Symptoms Respiratory: reports: No Symptoms Gastrointestinal: reports: Abdominal Pain, Nausea, Vomiting Genitourinary: reports: No Symptoms Breasts: reports: No Symptoms Reported Musculoskeletal: reports: Muscle Weakness Integumentary: reports: No Symptoms Neurological: reports: Pre-Existing Deficit Endocrine: reports: No Symptoms Hematology/Lymphatic: reports: No Symptoms Psychiatric: reports: No Symptoms Physical Exam-GI Vital Signs: Vital Signs Temperature 99.4 F 04/28/18 06:00 Pulse Rate 84 04/28/18 06:00 Respiratory Rate 20 04/28/18 06:00 Blood Pressure 149/53 L 04/28/18 06:00 O2 Sat by Pulse Oximetry (%) 96 04/28/18 04:36 Constitutional: Yes: No Distress, Calm Eyes: Yes: Conjunctiva Clear HENT: Yes: Normocephalic Cardiovascular: Yes: Regular Rate and Rhythm Respiratory: Yes: Regular, CTA Bilaterally Gastrointestinal Inspection: Yes: Scars. No: WNL, Ascites, Distention, Hernia, Other ...Auscultate: Yes: Normoactive Bowel Sounds. No: Hyperactive Bowel Sounds, Hypoactive Bowel Sounds, No Bowel Sounds, Other ...Palpate: Yes: Soft, Tenderness (diffuse) ...Percussion: Yes: Other (high tympany). No: Dullness, Fluid Wave, Tympanitic Genitourinary: Yes: Schultz Present Musculoskeletal: Yes: Muscle Weakness Neurological: Yes: Alert, Pre-Existing Deficit Labs: Laboratory Results - last 24 hr 04/27/18 04/27/18 04/27/18 19:36 19:36 20:00 WBC 13.9 H RBC 3.96 Hgb 11.3 Hct 32.8 D MCV 82.8 MCH 28.5 MCHC 34.4 RDW 14.9 Plt Count 591 H D MPV 7.8 Absolute Neuts (auto) 13.0 H Neutrophils % 93.2 H D Neutrophils % (Manual) 91.0 H Band Neutrophils % 6.0 Lymphocytes % 3.2 L D Lymphocytes % (Manual) 3.0 L Monocytes % 3.4 L Monocytes % (Manual) 0 L Eosinophils % 0.0 D Eosinophils % (Manual) 0.0 Basophils % 0.2 Basophils % (Manual) 0.0 Nucleated RBC % 0 Platelet Estimate Increased Platelet Comment No clumping noted VBG pH POC VBG pCO2 POC VBG pO2 Mixed VBG HCO3 Sodium 133 L Potassium 3.8 Chloride 89 L Carbon Dioxide 27 Anion Gap 17 H BUN 21 H Creatinine 1.6 H Creat Clearance w eGFR 31.34 POC Glucometer Random Glucose 593 H* Calcium 9.9 Total Bilirubin 0.9 AST 36 ALT 53 Alkaline Phosphatase 165 H Creatine Kinase 93 Troponin I 0.05 Total Protein 7.6 Albumin 3.6 Lipase 97 Urine Color Straw Urine Appearance Clear Urine pH 7.0 Ur Specific [place] 1.013 Urine Protein 3+ H Urine Glucose (UA) 3+ H Urine Ketones 1+ H Urine Blood Negative Urine Nitrite Negative Urine Bilirubin Negative Urine Urobilinogen Negative Ur Leukocyte Esterase Negative Urine WBC (Auto) 1 Urine RBC (Auto) <1 Acetone, Qual Positive small 1+ H 04/27/18 04/27/18 04/28/18 23:45 23:55 02:47 WBC RBC Hgb Hct MCV MCH MCHC RDW Plt Count MPV Absolute Neuts (auto) Neutrophils % Neutrophils % (Manual) Band Neutrophils % Lymphocytes % Lymphocytes % (Manual) Monocytes % Monocytes % (Manual) Eosinophils % Eosinophils % (Manual) Basophils % Basophils % (Manual) Nucleated RBC % Platelet Estimate Platelet Comment VBG pH 7.40 POC VBG pCO2 48.2 POC VBG pO2 49.0 H Mixed VBG HCO3 29.5 H Sodium Potassium Chloride Carbon Dioxide Anion Gap BUN Creatinine Creat Clearance w eGFR POC Glucometer 429 346 Random Glucose Calcium Total Bilirubin AST ALT Alkaline Phosphatase Creatine Kinase Troponin I Total Protein Albumin Lipase Urine Color Urine Appearance Urine pH Ur Specific [place] Urine Protein Urine Glucose (UA) Urine Ketones Urine Blood Urine Nitrite Urine Bilirubin Urine Urobilinogen Ur Leukocyte Esterase Urine WBC (Auto) Urine RBC (Auto) Acetone, Qual 04/28/18 05:58 WBC RBC Hgb Hct MCV MCH MCHC RDW Plt Count MPV Absolute Neuts (auto) Neutrophils % Neutrophils % (Manual) Band Neutrophils % Lymphocytes % Lymphocytes % (Manual) Monocytes % Monocytes % (Manual) Eosinophils % Eosinophils % (Manual) Basophils % Basophils % (Manual) Nucleated RBC % Platelet Estimate Platelet Comment VBG pH POC VBG pCO2 POC VBG pO2 Mixed VBG HCO3 Sodium Potassium Chloride Carbon Dioxide Anion Gap BUN Creatinine Creat Clearance w eGFR POC Glucometer 322 Random Glucose Calcium Total Bilirubin AST ALT Alkaline Phosphatase Creatine Kinase Troponin I Total Protein Albumin Lipase Urine Color Urine Appearance Urine pH Ur Specific [place] Urine Protein Urine Glucose (UA) Urine Ketones Urine Blood Urine Nitrite Urine Bilirubin Urine Urobilinogen Ur Leukocyte Esterase Urine WBC (Auto) Urine RBC (Auto) Acetone, Qual Active Medications Aspirin (Ecotrin -) 81 mg PO DAILY [facility] Bupropion HCl (Wellbutrin Xl -) 150 mg PO DAILY [facility] Divalproex Sodium (Depakote -) 250 mg PO DAILY [facility] Donepezil HCl (Aricept -) 10 mg PO DAILY [facility] Heparin Sodium (Porcine) (Heparin -) 5,000 unit SQ BID [facility] Hydralazine HCl (Apresoline -) 25 mg PO BID [facility] Sodium Chloride (Normal Saline -) 1,000 mls @ 42 mls/hr IV ASDIR [facility] Last Admin: 04/28/18 07:55 Dose: 42 mls/hr Insulin Aspart (Novolog Vial Sliding Scale -) 1 vial SQ ACHS [facility]; Protocol Last Admin: 02/07/19 06:40 Dose: 8 units Magnesium Citrate (Citroma -) 300 ml PO ONCE ONE Stop: 04/28/18 09:10 Metoclopramide HCl (Reglan Injection -) 10 mg IVPB ONCE ONE Stop: 04/28/18 09:12 Multivitamins/Minerals/Vitamin C (Tab-A-Vit -) 1 tab PO DAILY [facility] Nifedipine (Procardia Xl -) 60 mg PO DAILY [facility] Pancrelipase (Creon Dr 36,000 Units Capsule) 1 cap PO TIDCM [facility] Pantoprazole Sodium (Protonix Iv) 40 mg IVPB DAILY [facility] Polyethylene Glycol (Miralax (For Daily Use) -) 17 gm PO BID [facility] Pramipexole Dihydrochloride (Mirapex -) 1 mg PO HS [facility] Rifaximin (Xifaxan -) 550 mg PO BID [facility] Rosuvastatin Calcium (Crestor -) 10 mg PO HS [facility] Imaging - Results Cat Scan: Report Reviewed Problem List - Problems (1) Nausea and vomiting Assessment/Plan: >reglan 10mg IVPB x one dose >EKG ordered to check QT interval, if QT interval normal will start reglan IVPB PRN >Protonix IVPB 40mg daily Code(s): R11.2 - NAUSEA WITH VOMITING, UNSPECIFIED Qualifiers: Vomiting type: unspecified Vomiting Intractability: intractable Qualified Code(s): R11.2 - Nausea with vomiting, unspecified (2) Abdominal pain Assessment/Plan: >will start patient back on xifaxan 550mg TID and creon 36,000 units TID >citroma 1 bottle x 1 dose then start miralax 17g BID Code(s): R10.9 - UNSPECIFIED ABDOMINAL PAIN Qualifiers: Abdominal location: unspecified location Qualified Code(s): R10.9 - Unspecified abdominal pain
[2018-04-28] MEDS ORDERED: METOCLOPRAMIDE HCL INJECTION 10 MG/2 ML VIAL IVPUSH ONE ×2 (09:30→16:20)
[2018-04-28 09:48] LABS: ALBUMIN 2.7 g/dl (3.4-5.0); ALK PHOS 117 U/L (45-117); AMYLASE 11 U/L (25-115); ANION GAP 9 MMOL/L (8-16); BILIRUBIN,TOTAL 0.5 mg/dL (0.2-1); BLOOD UREA NITROGEN 25 mg/dL (7-18); CALCIUM 8.7 mg/dL (8.5-10.1); CHLORIDE 102 mmol/L (98-107); CO2 30 mmol/L (21-32); CREATININE 1.5 mg/dL (0.55-1.3); GLUCOSE,RANDOM 238 mg/dL (74-106); LIPASE 62 U/L (73-393); MAGNESIUM 2.2 mg/dL (1.8-2.4); POTASSIUM 3.3 mmol/L (3.5-5.1); SGOT/AST 18 U/L (15-37); SGPT/ALT 37 U/L (13-61); SODIUM 141 mmol/L (136-145); TOT PROT 5.6 g/dl (6.4-8.2)
[2018-04-28] MEDS ORDERED: PT OWN MED DRAWER 7, Y5N ONE ×2 (11:13→21:30)
[2018-04-28] MEDS: DIVALPROEX SODIUM 250 MG TABLET E.C. PO SCH (11:20)
[2018-04-28] MEDS: RIFAXIMIN 550 MG TABLET (UD) PO SCH ×2 (11:20→21:24)
[2018-04-28] MEDS: HEPARIN NA (PORCINE) 5,000 UNITS/ML 1ML VIAL SQ SCH ×2 (11:20→21:25)
[2018-04-28] MEDS: PANTOPRAZOLE SODIUM 40 MG VIAL IVPB SCH (11:20)
[2018-04-28] MEDS: hydrALAZINE HCL 25 MG TABLET (FP) PO SCH ×2 (11:21→21:24)
[2018-04-28] MEDS: MULTIVITAMINS (DAILY MVI) TABLET (FP) PO SCH (11:21)
[2018-04-28] MEDS: NIFEdipine E.R 60 MG TABLET (UD) PO SCH (11:21)
[2018-04-28] MEDS: ASPIRIN COATED 81 MG TABLET.EC PO SCH (11:21)
[2018-04-28] MEDS: DONEPEZIL HCL 10 MG TABLET (FP) PO SCH (11:21)
[2018-04-28] MEDS: LIPASE/PROTEASE/AMYLASE 36,000 UNIT CAPSULE PO SCH ×2 (11:21→17:24)
--- NOTE | 2018-04-28 14:10 | CON.CARD ---
Consult Consult Specialty:: cardiology Referred by:: Malorie Reason for Consultation:: Abnormal cardiac markers - History of Present Illness Chief Complaint: Abdominal discomfort History of Present Illness: The patient is a 78-year-old female with a history of diabetes, hypertension, hyperlipidemia, Parkinson's disease, dementia, diverticulosis, GI bleed, chronic kidney disease, now admitted with abdominal pains. Creatinine and troponins are mildly elevated. No chest pains. The patient looks fairly comfortable. Breathing normally. 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, Peripheral Neuropathy, Parkinson's Cardio/Vascular: Yes: HTN, Hyperlipdemia Gastrointestinal: Yes: Diverticulosis Psych: Yes: Anxiety Musculoskeletal: Yes: Osteoarthritis Endocrine: Yes: Diabetes Mellitus - Past Surgical History Past Surgical History: Yes: Appendectomy, Cholecystectomy, - Alcohol/Substance Use Hx Alcohol Use: No - Smoking History Smoking history: Smoker current status UNK Have you smoked in the past 12 months: No Aproximately how many cigarettes per day: 0 - Social History Usual Living Arrangement: With Significant Other 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 History of Recent Travel: No Home Medications - Allergies Allergies/Adverse Reactions: Allergies Allergy/AdvReac Type Severity Reaction Status Date / Time valsartan [From [employer]] Allergy Mild Verified 04/27/18 18:41 - Home Medications Home Medications: Ambulatory Orders Aspirin [ASA -] 81 mg PO DAILY 09/09/15 Olmesartan/Hydrochlorothiazide [Benicar Hct 40-12.5MG Tab -] 1 tab PO DAILY Multivitamins [Multivit ([facility] Formulary)] 1 tab PO DAILY tab 08/19/17 Donepezil HCl 10 mg PO DAILY 02/01/18 Metoclopramide HCl 5 mg PO DAILY 02/01/18 Pramipexole Di-HCl [Pramipexole Dihydrochloride] 1 mg PO HS 02/01/18 Rosuvastatin [Crestor -] 10 mg PO HS 02/01/18 Insulin Glargine,Hum.rec.anlog [Lantus (10mL VIAL) -] 34 units SQ ACBK 02/02/18 Bupropion HCl [Wellbutrin Xl -] 150 mg PO DAILY #30 tab.sr.24h 02/09/18 Divalproex [Depakote -] 250 mg PO DAILY tablet.ec 02/09/18 Nifedipine ER [Procardia XL -] 60 mg PO DAILY #30 tab.er.24 02/09/18 Pantoprazole Sodium [Protonix -] 40 mg PO DAILY #30 tablet.ec 02/09/18 Polyethylene Glycol 3350 [Miralax 119 gm Btl -] 17 gm PO BID bottle 02/09/18 Divalproex [Depakote -] 250 mg PO DAILY #30 tablet.ec 04/24/18 Lipase/Protease/Amylase [Elaine Sweeney 36,000 Units Capsule] 1 cap PO TIDCM #90 capsule. 04/24/18 Rifaximin [Xifaxan -] 550 mg PO TID #90 tablet 04/24/18 clonazePAM [Klonopin -] 0.25 mg PO Q12H PRN #60 tablet MDD 2 04/24/18 hydrALAZINE HCL [Apresoline -] 25 mg PO BID #60 tablet 04/24/18 Review of Systems - Review of Systems Constitutional: reports: No Symptoms Eyes: reports: No Symptoms HENT: reports: No Symptoms Neck: reports: No Symptoms Cardiovascular: reports: No Symptoms Respiratory: reports: No Symptoms Gastrointestinal: reports: Abdominal Pain Genitourinary: reports: No Symptoms Breasts: reports: No Symptoms Reported Musculoskeletal: reports: No Symptoms Integumentary: reports: No Symptoms Neurological: reports: No Symptoms Hematology/Lymphatic: reports: No Symptoms Psychiatric: reports: No Symptoms Vital Signs: Vital Signs Temperature 98.1 F 04/28/18 09:00 Pulse Rate 78 04/28/18 11:00 Respiratory Rate 20 04/28/18 11:00 Blood Pressure 154/60 04/28/18 11:00 O2 Sat by Pulse Oximetry (%) 96 04/28/18 04:36 Constitutional: Yes: Well Nourished, No Distress, Calm Eyes: Yes: WNL, Conjunctiva Clear, EOM Intact HENT: Yes: WNL, Atraumatic, Normocephalic Neck: Yes: WNL, Supple, Trachea Midline Respiratory: Yes: WNL, Regular, CTA Bilaterally Gastrointestinal: Yes: Normal Bowel Sounds, Soft, Tenderness Renal/: Yes: WNL Cardiovascular: Yes: WNL, Regular Rate and Rhythm JVD: No Carotid Bruit: No PMI: Non-Displaced Heart Sounds: Yes: S1, S2 Murmur: Yes: Systolic Murmur, Grade 2 Musculoskeletal: Yes: WNL Extremities: Yes: WNL Edema: No Peripheral Pulses: 1+ Left Carotid, 1+ Right Carotid, 1+ Left Femoral, 1+ Right Femoral, 1+ Left Popliteal, 1+ Right Popliteal, 1+ Left Doralis Pedis, 1+ Right Dorsalis Pedis Integumentary: Yes: WNL Neurological: Yes: WNL Psychiatric: Yes: WNL - Other Data Labs, Other Data: CBC, BMP 04/28/18 07:45 04/28/18 07:45 Troponin, BNP 04/27/18 04/28/18 19:36 12:40 Troponin I 0.05 0.16 H Troponin, BNP 04/27/18 04/28/18 19:36 12:40 Troponin I 0.05 0.16 H Assessment/Plan The patient is a 78-year-old female with a history of diabetes, hypertension, hyperlipidemia, Parkinson's disease, dementia, diverticulosis, GI bleed, chronic kidney disease, now admitted with abdominal pains. Creatinine and troponins are mildly elevated. No chest pains. The patient looks fairly comfortable. Breathing normally. The patient is stable from the cardiac standpoint. Creatinine and troponins are mildly elevated. No chest pains. Breathing normally. Please hydrate with normal saline, at 100 mL/h for a total of 2 L. Continue home medications. No need for further cardiac workup at this point. No need for cardiac monitoring. Please do not hesitate to call usRN.P
[2018-04-28] MEDS ORDERED: POTASSIUM CHLORIDE TABS 20 MEQ TABLET.ER (FP) PO ONE (14:15)
--- NOTE | 2018-04-28 16:20 | PN ---
Progress Note, Physician Chief Complaint: patient seen for abdominal pain and nausea found to have elevated troponin appricate cardiology eval on full liquid diet - Current Medication List Current Medications: Active Medications Aspirin (Ecotrin -) 81 mg PO DAILY [facility] Last Admin: 04/28/18 11:21 Dose: 81 mg Bupropion HCl (Wellbutrin Xl -) 150 mg PO DAILY [facility] Last Admin: 04/28/18 11:21 Dose: 150 mg Divalproex Sodium (Depakote -) 250 mg PO DAILY [facility] Last Admin: 04/28/18 11:20 Dose: 250 mg Donepezil HCl (Aricept -) 10 mg PO DAILY [facility] Last Admin: 04/28/18 11:21 Dose: 10 mg Heparin Sodium (Porcine) (Heparin -) 5,000 unit SQ BID [facility] Last Admin: 04/28/18 11:20 Dose: 5,000 unit Hydralazine HCl (Apresoline -) 25 mg PO BID [facility] Last Admin: 04/28/18 11:21 Dose: 25 mg Sodium Chloride (Normal Saline -) 1,000 mls @ 42 mls/hr IV ASDIR [facility] Last Admin: 04/28/18 07:55 Dose: 42 mls/hr Insulin Aspart (Novolog Vial Sliding Scale -) 1 vial SQ ACHS [facility]; Protocol Last Admin: 04/28/18 11:38 Dose: 4 units Morphine Sulfate (Morphine Injection -) 2 mg IVPUSH Q4H PRN PRN Reason: PAIN LEVEL 7 - 10 Multivitamins/Minerals/Vitamin C (Tab-A-Vit -) 1 tab PO DAILY [facility] Last Admin: 04/28/18 11:21 Dose: 1 tab Nifedipine (Procardia Xl -) 60 mg PO DAILY [facility] Last Admin: 04/28/18 11:21 Dose: 60 mg Ondansetron HCl (Zofran Injection) 4 mg IVPUSH Q6H PRN PRN Reason: NAUSEA Pancrelipase (Creon Dr 36,000 Units Capsule) 1 cap PO TIDCM [facility] Last Admin: 04/28/18 11:21 Dose: 1 cap Pantoprazole Sodium (Protonix Iv) 40 mg IVPB DAILY [facility] Last Admin: 04/28/18 11:20 Dose: 40 mg Polyethylene Glycol (Miralax (For Daily Use) -) 17 gm PO BID [facility] Pramipexole Dihydrochloride (Mirapex -) 1 mg PO HS [facility] Rifaximin (Xifaxan -) 550 mg PO BID [facility] Last Admin: 04/28/18 11:20 Dose: 550 mg Rosuvastatin Calcium (Crestor -) 10 mg PO [facility] - Objective Vital Signs: Vital Signs Temperature 97.9 F 04/28/18 14:00 Pulse Rate 81 04/28/18 14:00 Respiratory Rate 21 H 04/28/18 14:00 Blood Pressure 145/56 L 04/28/18 14:00 O2 Sat by Pulse Oximetry (%) 97 04/28/18 09:00 Constitutional: Yes: Mild Distress Cardiovascular: Yes: Regular Rate and Rhythm, S1, S2 Respiratory: Yes: CTA Bilaterally Gastrointestinal: Yes: Normal Bowel Sounds, Soft Edema: No Neurological: Yes: Alert, Oriented Labs: CBC, BMP 04/28/18 07:45 04/28/18 07:45 Problem List - Problems (1) Nausea and vomiting Assessment/Plan: zofran abdominal xray reglan Code(s): R11.2 - NAUSEA WITH VOMITING, UNSPECIFIED Qualifiers: Vomiting type: unspecified Vomiting Intractability: intractable Qualified Code(s): R11.2 - Nausea with vomiting, unspecified (2) Abdominal pain Assessment/Plan: morphine abdominal xray Code(s): R10.9 - UNSPECIFIED ABDOMINAL PAIN Qualifiers: Abdominal location: unspecified location Qualified Code(s): R10.9 - Unspecified abdominal pain (3) Hypokalemia Assessment/Plan: potassium repleted check magnesium Code(s): E87.6 - HYPOKALEMIA
[2018-04-28] MEDS: MORPHINE SULFATE 2 MG/ML VIAL IVPUSH PRN (16:41)
--- NOTE | 2018-04-28 16:42 | EKG ---
Test Reason : Blood Pressure : / mmHG Vent. Rate : 084 BPM Atrial Rate : 084 BPM P-R Int : 156 ms QRS Dur : 114 ms QT Int : 364 ms P-R-T Axes : 019 -44 138 degrees QTc Int : 430 ms SINUS RHYTHM WITH FREQUENT PREMATURE VENTRICULAR COMPLEXES LEFT AXIS DEVIATION LEFT VENTRICULAR HYPERTROPHY WITH REPOLARIZATION ABNORMALITY ABNORMAL ECG WHEN COMPARED WITH ECG OF 27-APR-2018 19:06, PREMATURE ATRIAL COMPLEXES ARE NO LONGER PRESENT INCOMPLETE RIGHT BUNDLE BRANCH BLOCK IS NO LONGER PRESENT MINIMAL CRITERIA FOR SEPTAL INFARCT ARE NO LONGER PRESENT Confirmed by JAZMYN CARRIZALES MD ([id number]) on 04/28/2018 4:41:49 PM Referred By: ROSMERY FITZPATRICK DR Confirmed By:JAZMYN CARRIZALES MD
[2018-04-28] MEDS: SODIUM CHLORIDE 1,000 ML IV SCH (16:45)
--- NOTE | 2018-04-28 16:45 | EKG ---
Test Reason : Blood Pressure : / mmHG Vent. Rate : 100 BPM Atrial Rate : 100 BPM P-R Int : 174 ms QRS Dur : 104 ms QT Int : 388 ms P-R-T Axes : 068 -44 109 degrees QTc Int : 500 ms SINUS RHYTHM WITH FREQUENT PREMATURE VENTRICULAR COMPLEXES AND PREMATURE ATRIAL COMPLEXES LEFT AXIS DEVIATION INCOMPLETE RIGHT BUNDLE BRANCH BLOCK LEFT VENTRICULAR HYPERTROPHY WITH REPOLARIZATION ABNORMALITY CANNOT RULE OUT SEPTAL INFARCT , AGE UNDETERMINED ABNORMAL ECG WHEN COMPARED WITH ECG OF 21-APR-2018 10:09, PREMATURE ATRIAL COMPLEXES ARE NOW PRESENT INCOMPLETE RIGHT BUNDLE BRANCH BLOCK IS NOW PRESENT MINIMAL CRITERIA FOR SEPTAL INFARCT ARE NOW PRESENT Confirmed by JAZMYN CARRIZALES MD ([id number]) on 04/28/2018 4:45:09 PM Referred By: Confirmed By:JAZMYN CARRIZALES MD
[2018-04-28] MEDS: ROSUVASTATIN CA 10 MG TABLET (FP) PO SCH (21:24)
[2018-04-28] MEDS: PRAMIPEXOLE DIHYDROCHLORIDE 1 MG TABLET PO SCH (21:29)
[2018-04-29] MEDS: MORPHINE SULFATE 2 MG/ML VIAL IVPUSH PRN ×2 (00:30→06:51)
[2018-04-29] MEDS: ONDANSETRON 4 MG/2 ML VIAL IVPUSH PRN ×2 (00:31→06:52)
[2018-04-29] MEDS: SODIUM CHLORIDE 1,000 ML IV SCH ×3 (00:32→19:57)
--- NOTE | 2018-04-29 02:18 | HOSP ---
Subjective - Review of Symptoms Events since last encounter: Hospitalist Encounter Notified by the RN that the patient is having CP with a BP of 192/76. Subjective: Arrived to bedside, patient is asleep but arousable and oriented. Patient reports having sternal CP with SOB starting last night. BP now 138/76 See PE Assessment: This is a 78 y/o woman with a PMHx of: IDDM, HTN, HLD, Arthritis, Anxiety. Admitted for Uncontrolled DM, Intractable Abdominal Pain, Vomiting, JASPER On admission pt had mildy elevated Troponins Was evaluated by Cardiology Plan: Stat EKG Stat Troponin Morphine Sulfate IV now Cardiovascular: Yes: Chest Pain Physical Examination Vital Signs: Vital Signs Temperature 99.8 F H 04/28/18 20:00 Pulse Rate 82 04/28/18 20:00 Respiratory Rate 18 04/28/18 20:24 Blood Pressure 153/69 04/28/18 20:00 O2 Sat by Pulse Oximetry (%) 97 04/28/18 20:24 Constitutional: Yes: No Distress, Calm Eyes: Yes: WNL, Conjunctiva Clear, EOM Intact, PERRL HENT: Yes: WNL, Atraumatic, Normocephalic Neck: Yes: WNL, Supple, Trachea Midline Cardiovascular: Yes: Regular Rate and Rhythm, S1, S2, Other (CP is reproducible on palpation) Respiratory: Yes: WNL, Regular, CTA Bilaterally Gastrointestinal: Yes: Soft Renal/: Yes: Schultz Present Edema: No Peripheral Pulses WNL: Yes Neurological: Yes: Alert, Oriented, Cran Nerves II-XII Intact Psychiatric: Yes: WNL, Alert, Oriented Labs: CBC, BMP 04/28/18 07:45 04/28/18 07:45 Hospitalist Encounter Assessment: EKG- Junctional Rhythm with occasional PVCs, change compared to prior study with SR with PVCs, incomplete RBBB Troponin trending down 0.11 Patient resting comfortably no distress per RN
[2018-04-29] MEDS ORDERED: MORPHINE SULFATE 2 MG/ML VIAL IVPUSH ONE (02:42)
[2018-04-29] MEDS ORDERED: ACETAMINOPHEN 325 MG TABLET (FP) PO ONE (05:35)
[2018-04-29] MEDS: INSULIN SLIDING SCALE (NOVOLOG) 1 VIAL SQ SCH ×4 (06:16→21:00)
[2018-04-29] MEDS ORDERED: INSULIN (NOVOLOG) ASPART 100 UNITS/ML 10ML VIAL ONE ×3 (06:53→17:36)
[2018-04-29 07:39] LABS: HEMATOCRIT 29.7 % (32.4-45.2); HEMOGLOBIN 10.1 GM/dL (10.7-15.3); MCH 28.4 pg (25.7-33.7); MEAN CELL VOLUME 83.4 fl (80-96); MEAN PLT VOLUME 8.2 fl (7.5-11.1); PLATELET COUNT 502 K/MM3 (134-434); RBC 3.56 M/mm3 (3.60-5.2); RDW 15.6 % (11.6-15.6); WHITE BLOOD COUNT 16.4 K/mm3 (4.0-10.0)
--- NOTE | 2018-04-29 07:47 | PN ---
Progress Note, Physician History of Present Illness: Patient examined and case discussed with Dr. Ibanez GI FOLLOW UP NOTE Patient examined lying in bed. Complain of epigastric/LUQ abdominal pain accompanied by nausea. Pending KUB. Elevated wbc 16.4 but afebrile. Drop in Hg noted from 11.3 to 9.0. Denies diarrhea or blood in stool. - Current Medication List Current Medications: Active Medications Aspirin (Ecotrin -) 81 mg PO DAILY [facility] Last Admin: 04/28/18 11:21 Dose: 81 mg Bupropion HCl (Wellbutrin Xl -) 150 mg PO DAILY [facility] Last Admin: 04/28/18 11:21 Dose: 150 mg Divalproex Sodium (Depakote -) 250 mg PO DAILY [facility] Last Admin: 04/28/18 11:20 Dose: 250 mg Donepezil HCl (Aricept -) 10 mg PO DAILY [facility] Last Admin: 04/28/18 11:21 Dose: 10 mg Heparin Sodium (Porcine) (Heparin -) 5,000 unit SQ BID [facility] Last Admin: 04/28/18 21:25 Dose: 5,000 unit Hydralazine HCl (Apresoline -) 25 mg PO BID [facility] Last Admin: 04/28/18 21:24 Dose: 25 mg Sodium Chloride (Normal Saline -) 1,000 mls @ 100 mls/hr IV ASDIR [facility] Last Admin: 04/29/18 00:32 Dose: 100 mls/hr Insulin Aspart (Novolog Vial Sliding Scale -) 1 vial SQ ACHS [facility]; Protocol Last Admin: 04/29/18 06:16 Dose: 6 units Morphine Sulfate (Morphine Sulfate) 2 mg IVPUSH Q4H PRN PRN Reason: PAIN LEVEL 7 - 10 Last Admin: 04/29/18 06:51 Dose: 2 mg Multivitamins/Minerals/Vitamin C (Tab-A-Vit -) 1 tab PO DAILY [facility] Last Admin: 04/28/18 11:21 Dose: 1 tab Nifedipine (Procardia Xl -) 60 mg PO DAILY [facility] Last Admin: 04/28/18 11:21 Dose: 60 mg Ondansetron HCl (Zofran Injection) 4 mg IVPUSH Q6H PRN PRN Reason: NAUSEA Last Admin: 04/29/18 06:52 Dose: 4 mg Pancrelipase (Elaine Sweeney 36,000 Units Capsule) 1 cap PO TIDCM [facility] Last Admin: 04/28/18 17:24 Dose: Not Given Pantoprazole Sodium (Protonix Iv) 40 mg IVPB DAILY [facility] Last Admin: 04/28/18 11:20 Dose: 40 mg Polyethylene Glycol (Miralax (For Daily Use) -) 17 gm PO BID [facility] Pramipexole Dihydrochloride (Mirapex -) 1 mg PO HS [facility] Last Admin: 04/28/18 21:29 Dose: 1 mg Rifaximin (Xifaxan -) 550 mg PO BID [facility] Last Admin: 04/28/18 21:24 Dose: 550 mg Rosuvastatin Calcium (Crestor -) 10 mg PO HS [facility] Last Admin: 04/28/18 21:24 Dose: 10 mg - Objective Vital Signs: Vital Signs Temperature 98.8 F 04/29/18 06:00 Pulse Rate 84 04/29/18 06:00 Respiratory Rate 20 04/29/18 06:00 Blood Pressure 138/76 04/29/18 06:00 O2 Sat by Pulse Oximetry (%) 97 04/28/18 20:24 Constitutional: Yes: Calm, Mild Distress Eyes: Yes: Conjunctiva Clear HENT: Yes: Normocephalic Cardiovascular: Yes: Regular Rate and Rhythm Respiratory: Yes: Regular, CTA Bilaterally Gastrointestinal: Yes: Normal Bowel Sounds, Soft, Tenderness (epigastric, LUQ). No: WNL, Abdomen, Obese, Ascites, Distention, Hematemesis, Hemorrhoids, Hepatomegaly, Hernia, Hyperactive Bowel Sounds, Hypoactive Bowel Sounds, Melena , Palpable Mass, Pulsatile Mass, Rectal Bleeding, Splenomegaly, Tenderness, Epigastrium, Tenderness, Rebound, Vomiting, Other Genitourinary: Yes: Schultz Present Musculoskeletal: Yes: Muscle Weakness Neurological: Yes: Alert Labs: Laboratory Last Values WBC 16.4 K/mm3 (4.0-10.0) H 04/29/18 06:00 RBC 3.56 M/mm3 (3.60-5.2) L 04/29/18 06:00 Hgb 10.1 GM/dL (10.7-15.3) L 04/29/18 06:00 Hct 29.7 % (32.4-45.2) L D 04/29/18 06:00 MCV 83.4 fl (80-96) 04/29/18 06:00 MCH 28.4 pg (25.7-33.7) 04/29/18 06:00 MCHC 34.0 g/dl (32.0-36.0) 04/29/18 06:00 RDW 15.6 % (11.6-15.6) 04/29/18 06:00 Plt Count 502 K/MM3 (134-434) H 04/29/18 06:00 MPV 8.2 fl (7.5-11.1) 04/29/18 06:00 Absolute Neuts (auto) 10.8 K/mm3 (1.5-8.0) H 04/28/18 07:45 Neutrophils % 79.6 % (42.8-82.8) 04/28/18 07:45 Neutrophils % (Manual) 91.0 % (42.8-82.8) H 04/27/18 19:36 Band Neutrophils % 6.0 % 04/27/18 19:36 Lymphocytes % 11.1 % (8-40) D 04/28/18 07:45 Lymphocytes % (Manual) 3.0 % (8-40) L 04/27/18 19:36 Monocytes % 9.0 % (3.8-10.2) D 04/28/18 07:45 Monocytes % (Manual) 0 % (3.8-10.2) L 04/27/18 19:36 Eosinophils % 0.1 % (0-4.5) D 04/28/18 07:45 Eosinophils % (Manual) 0.0 % (0-4.5) 04/27/18 19:36 Basophils % 0.2 % (0-2.0) 04/28/18 07:45 Basophils % (Manual) 0.0 % (0-2.0) 04/27/18 19:36 Nucleated RBC % 0 % (0-0) 04/28/18 07:45 Platelet Estimate Increased 04/27/18 19:36 Platelet Comment No clumping noted 04/27/18 19:36 VBG pH 7.40 (7.32-7.42) 04/27/18 23:55 POC VBG pCO2 48.2 mmHg (38-52) 04/27/18 23:55 POC VBG pO2 49.0 mmHg (28-48) H 04/27/18 23:55 Mixed VBG HCO3 29.5 meq/L (19-25) H 04/27/18 23:55 Sodium 141 mmol/L (136-145) 04/28/18 07:45 Potassium 3.3 mmol/L (3.5-5.1) L 04/28/18 07:45 Chloride 102 mmol/L (98-107) 04/28/18 07:45 Carbon Dioxide 30 mmol/L (21-32) 04/28/18 07:45 Anion Gap 9 MMOL/L (8-16) 04/28/18 07:45 BUN 25 mg/dL (7-18) H 04/28/18 07:45 Creatinine 1.5 mg/dL (0.55-1.3) H 04/28/18 07:45 Creat Clearance w eGFR 33.76 (>60) 04/28/18 07:45 POC Glucometer 270 UNITS (80-120) 04/29/18 06:08 Random Glucose 238 mg/dL (74-106) H 04/28/18 07:45 Hemoglobin A1c % 10.4 % (4.2-6.3) H 04/28/18 07:45 Calcium 8.7 mg/dL (8.5-10.1) 04/28/18 07:45 Magnesium 2.2 mg/dL (1.8-2.4) 04/28/18 07:45 Total Bilirubin 0.5 mg/dL (0.2-1) 04/28/18 07:45 AST 18 U/L (15-37) 04/28/18 07:45 ALT 37 U/L (13-61) 04/28/18 07:45 Alkaline Phosphatase 117 U/L (45-117) 04/28/18 07:45 Creatine Kinase 93 U/L (26-192) 04/27/18 19:36 Troponin I 0.11 ng/ml (0.00-0.05) H 04/29/18 03:00 Total Protein 5.6 g/dl (6.4-8.2) L 04/28/18 07:45 Albumin 2.7 g/dl (3.4-5.0) L 04/28/18 07:45 Total Amylase 11 U/L (25-115) L 04/28/18 07:45 Lipase 62 U/L (73-393) L 04/28/18 07:45 Urine Color Straw 04/27/18 20:00 Urine Appearance Clear 04/27/18 20:00 Urine pH 7.0 (5.0-8.0) 04/27/18 20:00 Ur Specific Tebbetts 1.013 (1.010-1.035) 04/27/18 20:00 Urine Protein 3+ (NEGATIVE) H 04/27/18 20:00 Urine Glucose (UA) 3+ (NEGATIVE) H 04/27/18 20:00 Urine Ketones 1+ (NEGATIVE) H 04/27/18 20:00 Urine Blood Negative (NEGATIVE) 04/27/18 20:00 Urine Nitrite Negative (NEGATIVE) 04/27/18 20:00 Urine Bilirubin Negative (<2.0 mg/dL) 04/27/18 20:00 Urine Urobilinogen Negative mg/dL (0.2-1.0) 04/27/18 20:00 Ur Leukocyte Esterase Negative (NEGATIVE) 04/27/18 20:00 Urine WBC (Auto) 1 /hpf (3-5) 04/27/18 20:00 Urine RBC (Auto) <1 /hpf (0-3) 04/27/18 20:00 Acetone, Qual Negative (NEGATIVE) L 04/28/18 07:45 <Audrey Pastrana - Last Filed: 04/29/18 07:52> - Current Medication List Current Medications: Active Medications Aspirin (Ecotrin -) 81 mg PO DAILY [facility] Last Admin: 04/29/18 09:36 Dose: Not Given Bupropion HCl (Wellbutrin Xl -) 150 mg PO DAILY [facility] Last Admin: 04/29/18 09:36 Dose: Not Given Divalproex Sodium (Depakote -) 250 mg PO DAILY [facility] Last Admin: 04/29/18 09:31 Dose: 250 mg Donepezil HCl (Aricept -) 10 mg PO DAILY [facility] Last Admin: 04/29/18 09:36 Dose: Not Given Heparin Sodium (Porcine) (Heparin -) 5,000 unit SQ BID [facility] Last Admin: 04/29/18 09:40 Dose: 5,000 unit Hydralazine HCl (Apresoline -) 25 mg PO BID [facility] Last Admin: 04/29/18 09:31 Dose: 25 mg Ceftriaxone Sodium 1 gm/ (Dextrose) 50 mls @ 100 mls/hr IVPB DAILY [facility]; Protocol Stop: 05/05/18 10:30 Last Admin: 04/29/18 09:25 Dose: 100 mls/hr Metronidazole (Flagyl 500mg Premixed Ivpb -) 500 mg in 100 mls @ 100 mls/hr IVPB Q8H-IV [facility] Last Admin: 04/29/18 09:27 Dose: 100 mls/hr Sodium Chloride (Normal Saline -) 1,000 mls @ 150 mls/hr IV ASDIR [facility] Stop: 05/01/18 14:39 Last Admin: 04/29/18 09:10 Dose: 150 mls/hr Insulin Aspart (Novolog Vial Sliding Scale -) 1 vial SQ ACHS [facility]; Protocol Last Admin: 04/29/18 11:29 Dose: Not Given Morphine Sulfate (Morphine Sulfate) 4 mg IVPUSH Q6H PRN PRN Reason: PAIN LEVEL 6-10 Multivitamins/Minerals/Vitamin C (Tab-A-Vit -) 1 tab PO DAILY [facility] Last Admin: 04/29/18 09:36 Dose: Not Given Nifedipine (Procardia Xl -) 60 mg PO DAILY [facility] Last Admin: 04/29/18 09:32 Dose: 60 mg Ondansetron HCl (Zofran Injection) 4 mg IVPUSH Q6H PRN PRN Reason: NAUSEA Last Admin: 04/29/18 06:52 Dose: 4 mg Pancrelipase (Creon Dr 36,000 Units Capsule) 1 cap PO TIDCM [facility] Last Admin: 04/29/18 11:30 Dose: Not Given Pantoprazole Sodium (Protonix Iv) 40 mg IVPB DAILY [facility] Last Admin: 04/29/18 09:23 Dose: 40 mg Polyethylene Glycol (Miralax (For Daily Use) -) 17 gm PO BID [facility] Last Admin: 04/29/18 09:28 Dose: Not Given Pramipexole Dihydrochloride (Mirapex -) 1 mg PO [facility] Last Admin: 04/28/18 21:29 Dose: 1 mg Rifaximin (Xifaxan -) 550 mg PO BID [facility] Last Admin: 04/29/18 09:36 Dose: Not Given Rosuvastatin Calcium (Crestor -) 10 mg PO HS [facility] Last Admin: 04/28/18 21:24 Dose: 10 mg - Objective Vital Signs: Vital Signs Temperature 98.6 F 04/29/18 15:21 Pulse Rate 90 04/29/18 15:21 Respiratory Rate 18 04/29/18 15:21 Blood Pressure 145/58 L 04/29/18 15:21 O2 Sat by Pulse Oximetry (%) 97 04/29/18 09:00 Labs: CBC, BMP 04/29/18 06:00 04/29/18 06:00 <Madhu Ibanez - Last Filed: 04/29/18 15:41> Problem List - Problems (1) HLD (hyperlipidemia) Code(s): E78.5 - HYPERLIPIDEMIA, UNSPECIFIED (2) Nausea and vomiting Assessment/Plan: -cont with zofran and reglan IVPB PRN -placed on NPO -Increased IVF to NS 150cc/hr x 3 bags Code(s): R11.2 - NAUSEA WITH VOMITING, UNSPECIFIED Qualifiers: Vomiting type: unspecified Vomiting Intractability: intractable Qualified Code(s): R11.2 - Nausea with vomiting, unspecified (3) Abdominal pain Assessment/Plan: R/O Diverticulitis, R/O Mesenteric Ischemia >placed on NPO >Increase IVF to NS at 150cc/hr x 3 bags >started on ceftriaxone 1g IVPB daily and flagyl 500mg IVPB q8h >pending KUB Code(s): R10.9 - UNSPECIFIED ABDOMINAL PAIN Qualifiers: Abdominal location: unspecified location Qualified Code(s): R10.9 - Unspecified abdominal pain (4) Uncontrolled diabetes mellitus Code(s): E11.65 - TYPE 2 DIABETES MELLITUS WITH HYPERGLYCEMIA Qualifiers: Diabetes mellitus type: type 2 <Audrey Pastrana - Last Filed: 04/29/18 07:52> - Problems (1) Nausea and vomiting Code(s): R11.2 - NAUSEA WITH VOMITING, UNSPECIFIED Qualifiers: Vomiting type: unspecified Vomiting Intractability: intractable Qualified Code(s): R11.2 - Nausea with vomiting, unspecified (2) Abdominal pain Code(s): R10.9 - UNSPECIFIED ABDOMINAL PAIN Qualifiers: Abdominal location: unspecified location Qualified Code(s): R10.9 - Unspecified abdominal pain <Madhu Ibanez - Last Filed: 04/29/18 15:41>
[2018-04-29 08:22] LABS: ALBUMIN 2.9 g/dl (3.4-5.0); ALK PHOS 137 U/L (45-117); ANION GAP 8 MMOL/L (8-16); BILIRUBIN,TOTAL 0.7 mg/dL (0.2-1); BLOOD UREA NITROGEN 21 mg/dL (7-18); CALCIUM 8.6 mg/dL (8.5-10.1); CHLORIDE 104 mmol/L (98-107); CO2 27 mmol/L (21-32); CREATININE 1.2 mg/dL (0.55-1.3); GLUCOSE,RANDOM 268 mg/dL (74-106); POTASSIUM 4.5 mmol/L (3.5-5.1); SGOT/AST 28 U/L (15-37); SGPT/ALT 41 U/L (13-61); SODIUM 139 mmol/L (136-145); TOT PROT 6.3 g/dl (6.4-8.2)
[2018-04-29] MEDS: LIPASE/PROTEASE/AMYLASE 36,000 UNIT CAPSULE PO SCH ×2 (09:06→11:30)
[2018-04-29] MEDS ORDERED: cefTRIAXone SODIUM 1 GM VIAL ONE (09:15)
[2018-04-29] MEDS ORDERED: DEXTROSE 5%-WATER - 50 ML IVPB ONE (09:16)
[2018-04-29] MEDS: PANTOPRAZOLE SODIUM 40 MG VIAL IVPB SCH (09:23)
[2018-04-29] MEDS: CEFTRIAXONE 1 GM in DEXTROSE 5%-WATER - 50 ML IVPB SCH (09:25)
[2018-04-29] MEDS: POLYETHYLENE GLYCOL 3350 119 GM BTL PO SCH ×2 (09:28→20:59)
[2018-04-29] MEDS ORDERED: PT OWN MED DRAWER 7, Y5N ONE ×2 (09:30→22:44)
[2018-04-29] MEDS: hydrALAZINE HCL 25 MG TABLET (FP) PO SCH ×2 (09:31→22:47)
[2018-04-29] MEDS: DIVALPROEX SODIUM 250 MG TABLET E.C. PO SCH (09:31)
[2018-04-29] MEDS: NIFEdipine E.R 60 MG TABLET (UD) PO SCH (09:32)
[2018-04-29] MEDS: ASPIRIN COATED 81 MG TABLET.EC PO SCH (09:36)
[2018-04-29] MEDS: RIFAXIMIN 550 MG TABLET (UD) PO SCH (09:36)
[2018-04-29] MEDS: DONEPEZIL HCL 10 MG TABLET (FP) PO SCH (09:36)
[2018-04-29] MEDS: MULTIVITAMINS (DAILY MVI) TABLET (FP) PO SCH (09:36)
[2018-04-29] MEDS: HEPARIN NA (PORCINE) 5,000 UNITS/ML 1ML VIAL SQ SCH ×2 (09:40→22:48)
--- NOTE | 2018-04-29 13:18 | EKG ---
Test Reason : Blood Pressure : / mmHG Vent. Rate : 084 BPM Atrial Rate : 084 BPM P-R Int : 000 ms QRS Dur : 100 ms QT Int : 362 ms P-R-T Axes : 000 -44 115 degrees QTc Int : 427 ms normal sinus rhythm WITH OCCASIONAL PREMATURE VENTRICULAR COMPLEXES LEFT AXIS DEVIATION LEFT VENTRICULAR HYPERTROPHY WITH REPOLARIZATION ABNORMALITY ABNORMAL ECG Confirmed by VERONA URIBE MD ([id number]) on 04/29/2018 1:17:47 PM Referred By: Confirmed By:VERONA URIBE MD
--- NOTE | 2018-04-29 14:30 | PN ---
Progress Note, Physician Chief Complaint: Abdominal Pain DM History of Present Illness: Previous notes and events reviewed awake and alert c/o nausea and abdominal pain KUB results reviewed - Current Medication List Current Medications: Active Medications Aspirin (Ecotrin -) 81 mg PO DAILY [facility] Last Admin: 04/29/18 09:36 Dose: Not Given Bupropion HCl (Wellbutrin Xl -) 150 mg PO DAILY [facility] Last Admin: 04/29/18 09:36 Dose: Not Given Divalproex Sodium (Depakote -) 250 mg PO DAILY [facility] Last Admin: 04/29/18 09:31 Dose: 250 mg Donepezil HCl (Aricept -) 10 mg PO DAILY [facility] Last Admin: 04/29/18 09:36 Dose: Not Given Heparin Sodium (Porcine) (Heparin -) 5,000 unit SQ BID [facility] Last Admin: 04/29/18 09:40 Dose: 5,000 unit Hydralazine HCl (Apresoline -) 25 mg PO BID [facility] Last Admin: 04/29/18 09:31 Dose: 25 mg Ceftriaxone Sodium 1 gm/ (Dextrose) 50 mls @ 100 mls/hr IVPB DAILY [facility]; Protocol Stop: 05/05/18 10:30 Last Admin: 04/29/18 09:25 Dose: 100 mls/hr Metronidazole (Flagyl 500mg Premixed Ivpb -) 500 mg in 100 mls @ 100 mls/hr IVPB Q8H-IV [facility] Last Admin: 04/29/18 09:27 Dose: 100 mls/hr Sodium Chloride (Normal Saline -) 1,000 mls @ 150 mls/hr IV ASDIR [facility] Stop: 05/01/18 14:39 Last Admin: 04/29/18 09:10 Dose: 150 mls/hr Insulin Aspart (Novolog Vial Sliding Scale -) 1 vial SQ ACHS [facility]; Protocol Last Admin: 04/29/18 11:29 Dose: Not Given Morphine Sulfate (Morphine Sulfate) 2 mg IVPUSH Q4H PRN PRN Reason: PAIN LEVEL 7 - 10 Last Admin: 04/29/18 06:51 Dose: 2 mg Multivitamins/Minerals/Vitamin C (Tab-A-Vit -) 1 tab PO DAILY [facility] Last Admin: 04/29/18 09:36 Dose: Not Given Nifedipine (Procardia Xl -) 60 mg PO DAILY [facility] Last Admin: 04/29/18 09:32 Dose: 60 mg Ondansetron HCl (Zofran Injection) 4 mg IVPUSH Q6H PRN PRN Reason: NAUSEA Last Admin: 04/29/18 06:52 Dose: 4 mg Pancrelipase (Creon Dr 36,000 Units Capsule) 1 cap PO TIDCM [facility] Last Admin: 04/29/18 11:30 Dose: Not Given Pantoprazole Sodium (Protonix Iv) 40 mg IVPB DAILY [facility] Last Admin: 04/29/18 09:23 Dose: 40 mg Polyethylene Glycol (Miralax (For Daily Use) -) 17 gm PO BID [facility] Last Admin: 04/29/18 09:28 Dose: Not Given Pramipexole Dihydrochloride (Mirapex -) 1 mg PO [facility] Last Admin: 04/28/18 21:29 Dose: 1 mg Rifaximin (Xifaxan -) 550 mg PO BID [facility] Last Admin: 04/29/18 09:36 Dose: Not Given Rosuvastatin Calcium (Crestor -) 10 mg PO [facility] Last Admin: 04/28/18 21:24 Dose: 10 mg - Objective Vital Signs: Vital Signs Temperature 99.1 F 04/29/18 08:06 Pulse Rate 96 H 04/29/18 12:32 Respiratory Rate 18 04/29/18 12:32 Blood Pressure 165/82 04/29/18 12:32 O2 Sat by Pulse Oximetry (%) 97 04/29/18 09:00 Constitutional: Yes: Calm, Mild Distress Eyes: Yes: Conjunctiva Clear HENT: Yes: Normocephalic Neck: Yes: Supple Cardiovascular: Yes: Regular Rate and Rhythm Respiratory: Yes: Regular, CTA Bilaterally Gastrointestinal: Yes: Normal Bowel Sounds, Soft, Tenderness (epigastric) Genitourinary: Yes: Schultz Present Musculoskeletal: Yes: Muscle Weakness Extremities: Yes: WNL Edema: Yes Edema: LLE: 1+, RLE: 1+ Neurological: Yes: Alert, Pre-Existing Deficit Psychiatric: Yes: Alert Labs: CBC, BMP 04/29/18 06:00 04/29/18 06:00 Microbiology 04/28/18 06:00 Urine - Urine Schultz Urine Culture - Final NO GROWTH OBTAINED 04/28/18 05:30 Blood - Peripheral Venous Blood Culture - Preliminary NO GROWTH OBTAINED AFTER 24 HOURS, INCUBATION TO CONTINUE FOR 4 DAYS. 04/28/18 05:00 Blood - Peripheral Venous Blood Culture - Preliminary NO GROWTH OBTAINED AFTER 24 HOURS, INCUBATION TO CONTINUE FOR 4 DAYS. - ....Imaging X-ray: Report Reviewed <Audrey Pastrana - Last Filed: 04/29/18 14:25> - Current Medication List Current Medications: Active Medications Aspirin (Ecotrin -) 81 mg PO DAILY [facility] Last Admin: 05/01/18 09:12 Dose: 81 mg Bupropion HCl (Wellbutrin Xl -) 150 mg PO DAILY [facility] Last Admin: 05/01/18 09:12 Dose: 150 mg Divalproex Sodium (Depakote -) 250 mg PO DAILY [facility] Last Admin: 05/01/18 10:39 Dose: 250 mg Heparin Sodium (Porcine) (Heparin -) 5,000 unit SQ BID [facility] Last Admin: 05/01/18 09:12 Dose: 5,000 unit Hydralazine HCl (Apresoline -) 25 mg PO BID [facility] Last Admin: 05/01/18 09:12 Dose: 25 mg Ceftriaxone Sodium 1 gm/ (Dextrose) 50 mls @ 100 mls/hr IVPB DAILY [facility]; Protocol Stop: 05/05/18 10:30 Last Admin: 05/01/18 09:12 Dose: 100 mls/hr Metronidazole (Flagyl 500mg Premixed Ivpb -) 500 mg in 100 mls @ 100 mls/hr IVPB Q8H-IV [facility] Last Admin: 05/01/18 09:11 Dose: 100 mls/hr Potassium Chloride/Sodium Chloride (Ns+20 Meq Kcl -) 20 meq in 1,000 mls @ 100 mls/hr IV ASDIR [facility] Last Admin: 05/01/18 17:04 Dose: 100 mls/hr Levofloxacin (Levaquin 750 Mg Premixed Ivpb -) 750 mg in 150 mls @ 100 mls/hr IVPB ONCE ONE; Protocol Stop: 05/01/18 18:14 Last Admin: 05/01/18 17:13 Dose: 100 mls/hr Insulin Aspart (Novolog Vial Sliding Scale -) 1 vial SQ ACHS [facility]; Protocol Last Admin: 05/01/18 17:03 Dose: Not Given Morphine Sulfate (Morphine Sulfate) 4 mg IVPUSH Q6H PRN PRN Reason: PAIN LEVEL 6-10 Last Admin: 05/01/18 11:29 Dose: 4 mg Nifedipine (Procardia Xl -) 60 mg PO DAILY [facility] Last Admin: 05/01/18 10:39 Dose: 60 mg Pantoprazole Sodium (Protonix Iv) 40 mg IVPB DAILY [facility] Last Admin: 05/01/18 09:12 Dose: 40 mg Polyethylene Glycol (Miralax (For Daily Use) -) 17 gm PO BID [facility] Last Admin: 05/01/18 10:39 Dose: 17 gm Pramipexole Dihydrochloride (Mirapex -) 1 mg PO [facility] Last Admin: 04/30/18 21:44 Dose: 1 mg Rosuvastatin Calcium (Crestor -) 10 mg PO [facility] Last Admin: 04/30/18 21:44 Dose: Not Given - Objective Vital Signs: Vital Signs Temperature 98.5 F 05/01/18 14:00 Pulse Rate 96 H 05/01/18 14:00 Respiratory Rate 21 H 05/01/18 14:00 Blood Pressure 133/57 L 05/01/18 14:00 O2 Sat by Pulse Oximetry (%) 95 05/01/18 09:00 Labs: CBC, BMP 05/01/18 07:30 05/01/18 07:30 <Zulma,Ammir - Last Filed: 05/01/18 18:13> Problem List - Problems (1) HLD (hyperlipidemia) Assessment/Plan: -cont with crestor 10mg qhs Code(s): E78.5 - HYPERLIPIDEMIA, UNSPECIFIED (2) Nausea and vomiting Assessment/Plan: -cont with zofran and reglan IVPB PRN -placed on NPO -Increased IVF to NS 150cc/hr x 3 bags Code(s): R11.2 - NAUSEA WITH VOMITING, UNSPECIFIED Qualifiers: Vomiting type: unspecified Vomiting Intractability: intractable Qualified Code(s): R11.2 - Nausea with vomiting, unspecified (3) Abdominal pain Assessment/Plan: -placed on NPO -Increase IVF to NS at 150cc/hr x 3 bags -started on ceftriaxone 1g IVPB daily and flagyl 500mg IVPB q8h -KUB results show retained colonic contrast with colonic diverticula -pain management -surgery consult Code(s): R10.9 - UNSPECIFIED ABDOMINAL PAIN Qualifiers: Abdominal location: unspecified location Qualified Code(s): R10.9 - Unspecified abdominal pain (4) Uncontrolled diabetes mellitus Assessment/Plan: -BGM ACHS, ISS -HgA1c 10.4 -endocrinology consult Code(s): E11.65 - TYPE 2 DIABETES MELLITUS WITH HYPERGLYCEMIA Qualifiers: Diabetes mellitus type: type 2 <Audrey Pastrana - Last Filed: 04/29/18 14:25> Assessment/Plan PATIENT SEEN AND EXAMINED AND I AGREE WITH ABOVE NOTE <Kimberly Maya - Last Filed: 05/01/18 18:13>
--- NOTE | 2018-04-29 15:47 | PN ---
GI Progress Note Subjective: patient developed abdominal pain overnight, associated with elevated WBC to 16, 000, FUA--oral contrast in the large intestine - Objective Vital Signs: Vital Signs Temperature 98.6 F 04/29/18 15:21 Pulse Rate 90 04/29/18 15:21 Respiratory Rate 18 04/29/18 15:21 Blood Pressure 145/58 L 04/29/18 15:21 O2 Sat by Pulse Oximetry (%) 97 04/29/18 09:00 Constitutional: Well Nourished Eyes: Yes: Conjunctiva Clear HENT: Yes: Atraumatic Neck: Yes: Trachea Midline Cardiovascular: Yes: Regular Rate and Rhythm Gastrointestinal Inspection: No: Distention ...Auscultate: Yes: Normoactive Bowel Sounds ...Palpate: Yes: Soft, Tenderness (--diffuse). No: Firm/Rigid, Guarding, Hepatomegaly, Mass, Splenomegaly Labs: CBC, BMP 04/29/18 06:00 04/29/18 06:00 Hepatic Panel Total Bilirubin 0.7 mg/dL (0.2-1) 04/29/18 06:00 AST 28 U/L (15-37) 04/29/18 06:00 ALT 41 U/L (13-61) 04/29/18 06:00 Alkaline Phosphatase 137 U/L (45-117) H 04/29/18 06:00 Albumin 2.9 g/dl (3.4-5.0) L 04/29/18 06:00 Problem List - Problems (1) Nausea and vomiting Assessment/Plan: R> IV Reglan and IV zofran Code(s): R11.2 - NAUSEA WITH VOMITING, UNSPECIFIED Qualifiers: Vomiting type: unspecified Vomiting Intractability: intractable Qualified Code(s): R11.2 - Nausea with vomiting, unspecified (2) Abdominal pain Assessment/Plan: elevated WBC r/o diverticulitis vs mesenteric ischemia R> creatinine is elevated cannot undergo CTA of the abdomen await surgical input IV hydration IV antibiotics started since this morning Code(s): R10.9 - UNSPECIFIED ABDOMINAL PAIN Qualifiers: Abdominal location: unspecified location Qualified Code(s): R10.9 - Unspecified abdominal pain
[2018-04-29] MEDS: morphine SULFATE 4 MG/ML VIAL IVPUSH PRN (16:53)
[2018-04-29] MEDS: ONDANSETRON 4 MG/2 ML VIAL IVPB SCH ×2 (16:58→20:55)
--- NOTE | 2018-04-29 18:26 | CONSULT ---
- Consultation REQUESTING PROVIDER: Malorie MALIN CONSULT REQUEST: We have been asked to surgically evaluate this patient for abdominal pain. PCP:Ro Espana HISTORY OF PRESENT ILLNESS: Admitted 2 days ago w/n/v abdominal pain after recent discharge for same; has had # admissions for abdominal pain and numerous imaging studies for same with no clear cut source; patient states she has not had a bowel movement in 3 weeks; she denies any other GI//[employer] c/o. PMHx: IDDM/HTN/seizure disorder PSHx: open amanda; STSG to abdomen and other abdominal surgeries Home Medications Medication Instructions Recorded Aspirin [ASA -] 81 mg PO DAILY 09/09/15 Olmesartan/Hydrochlorothiazide 1 tab PO DAILY 06/07/17 [Benicar Hct 40-12.5MG Tab -] Multivitamins [Multivit ([facility] 1 tab PO DAILY tab 08/19/17 Formulary)] Donepezil HCl 10 mg PO DAILY 02/01/18 Metoclopramide HCl 5 mg PO DAILY 02/01/18 Pramipexole Di-HCl [Pramipexole 1 mg PO HS 02/01/18 Dihydrochloride] Rosuvastatin [Crestor -] 10 mg PO HS 02/01/18 Insulin Glargine,Hum.rec.anlog 34 units SQ ACBK 02/02/18 [Lantus (10mL VIAL) -] Bupropion HCl [Wellbutrin Xl -] 150 mg PO DAILY #30 tab.sr.24h 02/09/18 Divalproex [Depakote -] 250 mg PO DAILY tablet.ec 02/09/18 Nifedipine ER [Procardia XL -] 60 mg PO DAILY #30 tab.er.24 02/09/18 Pantoprazole Sodium [Protonix -] 40 mg PO DAILY #30 tablet.ec 02/09/18 Polyethylene Glycol 3350 [Miralax 17 gm PO BID bottle 02/09/18 119 gm Btl -] Divalproex [Depakote -] 250 mg PO DAILY #30 tablet.ec 04/24/18 Lipase/Protease/Amylase [Elaine Sweeney 1 cap PO TIDCM #90 capsule. 04/24/18 36,000 Units Capsule] Rifaximin [Xifaxan -] 550 mg PO TID #90 tablet 04/24/18 clonazePAM [Klonopin -] 0.25 mg PO Q12H PRN #60 tablet MDD 04/24/18 2 hydrALAZINE HCL [Apresoline -] 25 mg PO BID #60 tablet 04/24/18 Allergies Allergy/AdvReac Type Severity Reaction Status Date / Time valsartan [From Diovan] Allergy Mild Verified 04/27/18 18:41 PHYSICAL EXAM: GENERAL: Awake, alert, and fully oriented, in no acute distress. HEAD: Normal with no signs of trauma. EYES: sclera anicteric, conjunctiva clear. NECK: Normal ROM, supple without lymphadenopathy, JVD, or masses. ABDOMEN: Soft, nontender, not distended, normoactive bowel sounds, no guarding, no rebound, no masses. No organomegaly. Healed RUQ scar; STSG to abdominal wall ; lower abdominal midline scar; no hernias; no evidence of an acute surgical abdomen MUSCULOSKELETAL: Normal ROM at all joints. No bony deformities or tenderness. No CVA tenderness. UPPER EXTREMITIES: 2+ pulses, warm, well-perfused. No cyanosis. Cap refill <2 seconds. No peripheral edema. LOWER EXTREMITIES: 2+ pulses, warm, well-perfused. No calf tenderness. No peripheral edema. NEUROLOGICAL: Normal speech, gait not observed. PSYCH: Cooperative. Good eye contact. Appropriate mood and affect. SKIN: Warm, dry, normal turgor, no rashes or lesions noted. RECTAL: Decreased sphincter tone; no mass; soft scant stool. Vital Signs Temperature 98.6 F 04/29/18 15:21 Pulse Rate 90 04/29/18 15:21 Respiratory Rate 18 04/29/18 15:21 Blood Pressure 145/58 L 04/29/18 15:21 O2 Sat by Pulse Oximetry (%) 97 04/29/18 09:00 Lab Results WBC 16.4 K/mm3 (4.0-10.0) H 04/29/18 06:00 RBC 3.56 M/mm3 (3.60-5.2) L 04/29/18 06:00 Hgb 10.1 GM/dL (10.7-15.3) L 04/29/18 06:00 Hct 29.7 % (32.4-45.2) L D 04/29/18 06:00 MCV 83.4 fl (80-96) 04/29/18 06:00 MCHC 34.0 g/dl (32.0-36.0) 04/29/18 06:00 RDW 15.6 % (11.6-15.6) 04/29/18 06:00 Plt Count 502 K/MM3 (134-434) H 04/29/18 06:00 Sodium 139 mmol/L (136-145) 04/29/18 06:00 Potassium 4.5 mmol/L (3.5-5.1) 04/29/18 06:00 Chloride 104 mmol/L (98-107) 04/29/18 06:00 Carbon Dioxide 27 mmol/L (21-32) 04/29/18 06:00 Anion Gap 8 MMOL/L (8-16) 04/29/18 06:00 BUN 21 mg/dL (7-18) H 04/29/18 06:00 Creatinine 1.2 mg/dL (0.55-1.3) 04/29/18 06:00 Random Glucose 268 mg/dL (74-106) H 04/29/18 06:00 Calcium 8.6 mg/dL (8.5-10.1) 04/29/18 06:00 CT scan a/p and previous imaging w/u reviewed. IMP: no evidence of an acute surgical abdomen PLAN: Suggest NPO/IVF/observation and continued medical management. Carmine Jorge MD FACS
[2018-04-29] MEDS: ROSUVASTATIN CA 10 MG TABLET (FP) PO SCH (20:59)
[2018-04-29] MEDS: PRAMIPEXOLE DIHYDROCHLORIDE 1 MG TABLET PO SCH (22:48)
[2018-04-30] MEDS: morphine SULFATE 4 MG/ML VIAL IVPUSH PRN ×2 (01:23→18:40)
[2018-04-30] MEDS: SODIUM CHLORIDE 1,000 ML IV SCH ×2 (03:00→08:08)
[2018-04-30] MEDS: ONDANSETRON 4 MG/2 ML VIAL IVPB SCH ×3 (04:00→08:08)
[2018-04-30] MEDS: INSULIN SLIDING SCALE (NOVOLOG) 1 VIAL SQ SCH ×4 (06:10→21:46)
[2018-04-30 08:19] LABS: HEMATOCRIT 28.5 % (32.4-45.2); HEMOGLOBIN 9.8 GM/dL (10.7-15.3); MCH 28.4 pg (25.7-33.7); MCHC 34.3 g/dl (32.0-36.0); MEAN CELL VOLUME 82.9 fl (80-96); MEAN PLT VOLUME 8.1 fl (7.5-11.1); PLATELET COUNT 527 K/MM3 (134-434); RBC 3.44 M/mm3 (3.60-5.2); RDW 15.1 % (11.6-15.6); WHITE BLOOD COUNT 17.6 K/mm3 (4.0-10.0)
[2018-04-30 08:59] LABS: ALBUMIN 2.6 g/dl (3.4-5.0); ALK PHOS 141 U/L (45-117); ANION GAP 8 MMOL/L (8-16); BILIRUBIN,TOTAL 0.5 mg/dL (0.2-1); BLOOD UREA NITROGEN 17 mg/dL (7-18); CALCIUM 8.9 mg/dL (8.5-10.1); CHLORIDE 110 mmol/L (98-107); CO2 26 mmol/L (21-32); CREATININE 1.2 mg/dL (0.55-1.3); GLUCOSE,RANDOM 199 mg/dL (74-106); POTASSIUM 4.2 mmol/L (3.5-5.1); SGOT/AST 17 U/L (15-37); SGPT/ALT 31 U/L (13-61); SODIUM 143 mmol/L (136-145); TOT PROT 5.9 g/dl (6.4-8.2)
--- NOTE | 2018-04-30 09:10 | PN ---
Progress Note, Physician - Current Medication List Current Medications: Active Medications Aspirin (Ecotrin -) 81 mg PO DAILY [facility] Last Admin: 04/29/18 09:36 Dose: Not Given Bupropion HCl (Wellbutrin Xl -) 150 mg PO DAILY [facility] Last Admin: 04/29/18 09:36 Dose: Not Given Divalproex Sodium (Depakote -) 250 mg PO DAILY [facility] Last Admin: 04/29/18 09:31 Dose: 250 mg Donepezil HCl (Aricept -) 10 mg PO DAILY [facility] Last Admin: 04/29/18 09:36 Dose: Not Given Heparin Sodium (Porcine) (Heparin -) 5,000 unit SQ BID [facility] Last Admin: 04/29/18 22:48 Dose: 5,000 unit Hydralazine HCl (Apresoline -) 25 mg PO BID [facility] Last Admin: 04/29/18 22:47 Dose: 25 mg Ceftriaxone Sodium 1 gm/ (Dextrose) 50 mls @ 100 mls/hr IVPB DAILY [facility]; Protocol Stop: 05/05/18 10:30 Last Admin: 04/29/18 09:25 Dose: 100 mls/hr Metronidazole (Flagyl 500mg Premixed Ivpb -) 500 mg in 100 mls @ 100 mls/hr IVPB Q8H-IV [facility] Last Admin: 04/30/18 01:02 Dose: 100 mls/hr Sodium Chloride (Normal Saline -) 1,000 mls @ 150 mls/hr IV ASDIR [facility] Stop: 05/01/18 14:39 Last Admin: 04/30/18 08:08 Dose: Not Given Insulin Aspart (Novolog Vial Sliding Scale -) 1 vial SQ ACHS [facility]; Protocol Last Admin: 04/30/18 06:10 Dose: 4 units Morphine Sulfate (Morphine Sulfate) 4 mg IVPUSH Q6H PRN PRN Reason: PAIN LEVEL 6-10 Last Admin: 04/30/18 01:23 Dose: 4 mg Multivitamins/Minerals/Vitamin C (Tab-A-Vit -) 1 tab PO DAILY [facility] Last Admin: 04/29/18 09:36 Dose: Not Given Nifedipine (Procardia Xl -) 60 mg PO DAILY [facility] Last Admin: 04/29/18 09:32 Dose: 60 mg Ondansetron HCl (Zofran Injection) 4 mg IVPB Q4H [facility] Last Admin: 04/30/18 08:08 Dose: 4 mg Pantoprazole Sodium (Protonix Iv) 40 mg IVPB DAILY [facility] Last Admin: 04/29/18 09:23 Dose: 40 mg Polyethylene Glycol (Miralax (For Daily Use) -) 17 gm PO BID [facility] Last Admin: 04/29/18 20:59 Dose: Not Given Pramipexole Dihydrochloride (Mirapex -) 1 mg PO [facility] Last Admin: 04/29/18 22:48 Dose: 1 mg Rosuvastatin Calcium (Crestor -) 10 mg PO [facility] Last Admin: 04/29/18 20:59 Dose: Not Given - Objective Vital Signs: Vital Signs Temperature 99.9 F H 04/30/18 08:15 Pulse Rate 99 H 04/30/18 08:15 Respiratory Rate 18 04/30/18 08:15 Blood Pressure 158/89 04/30/18 08:15 O2 Sat by Pulse Oximetry (%) 99 04/29/18 20:28 Cardiovascular: Yes: Regular Rate and Rhythm Respiratory: Yes: Regular, CTA Bilaterally Gastrointestinal: Yes: Normal Bowel Sounds, Soft. No: Tenderness Labs: CBC, BMP 04/30/18 06:00 04/30/18 06:00 Problem List - Problems (1) Leukocytosis Assessment/Plan: -unknown etiology id consul Code(s): D72.829 - ELEVATED WHITE BLOOD CELL COUNT, UNSPECIFIED (2) Abdominal pain Assessment/Plan: -pt without tenderness +wbc id consult gi and surgery on case Code(s): R10.9 - UNSPECIFIED ABDOMINAL PAIN Qualifiers: Abdominal location: unspecified location Qualified Code(s): R10.9 - Unspecified abdominal pain (3) HLD (hyperlipidemia) Code(s): E78.5 - HYPERLIPIDEMIA, UNSPECIFIED (4) Diabetes Assessment/Plan: bg with coverage endo Code(s): E11.9 - TYPE 2 DIABETES MELLITUS WITHOUT COMPLICATIONS Qualifiers: Diabetes mellitus type: type 2
[2018-04-30] MEDS ORDERED: cefTRIAXone SODIUM 1 GM VIAL ONE (10:09)
[2018-04-30] MEDS ORDERED: DEXTROSE 5%-WATER - 50 ML IVPB ONE (10:09)
[2018-04-30] MEDS ORDERED: PT OWN MED DRAWER 7, Y5N ONE (10:11)
[2018-04-30] MEDS: NIFEdipine E.R 60 MG TABLET (UD) PO SCH (10:12)
[2018-04-30] MEDS: hydrALAZINE HCL 25 MG TABLET (FP) PO SCH ×2 (10:12→21:44)
[2018-04-30] MEDS: DIVALPROEX SODIUM 250 MG TABLET E.C. PO SCH (10:12)
[2018-04-30] MEDS: HEPARIN NA (PORCINE) 5,000 UNITS/ML 1ML VIAL SQ SCH ×2 (10:12→21:44)
[2018-04-30] MEDS: CEFTRIAXONE 1 GM in DEXTROSE 5%-WATER - 50 ML IVPB SCH (10:13)
[2018-04-30] MEDS: PANTOPRAZOLE SODIUM 40 MG VIAL IVPB SCH (10:13)
[2018-04-30] MEDS: POLYETHYLENE GLYCOL 3350 119 GM BTL PO SCH ×2 (10:32→21:44)
[2018-04-30] MEDS: ASPIRIN COATED 81 MG TABLET.EC PO SCH (10:32)
[2018-04-30] MEDS: DONEPEZIL HCL 10 MG TABLET (FP) PO SCH (10:32)
[2018-04-30] MEDS: MULTIVITAMINS (DAILY MVI) TABLET (FP) PO SCH (10:51)
--- NOTE | 2018-04-30 11:37 | PN ---
GI Progress Note Subjective: For Dr. Ibanez No acute events overnight Complains of back pain...when asked where, she pointed to my mid back She also points towards her pelvis / lower abdomen as well when asked about the pain Was given an enema today Has spasms intermittently. When asked about them she points towards her back - Objective Vital Signs: Vital Signs Temperature 99.9 F H 04/30/18 08:15 Pulse Rate 99 H 04/30/18 08:15 Respiratory Rate 18 04/30/18 08:15 Blood Pressure 158/89 04/30/18 08:15 O2 Sat by Pulse Oximetry (%) 99 04/29/18 20:28 Constitutional: Calm Eyes: No: Sclera Icterus HENT: Yes: Drooling Cardiovascular: Yes: Regular Rate and Rhythm Respiratory: Yes: Diminished (at bases with poor insp effort) Gastrointestinal Inspection: Yes: Scars, Other (skin graft in lower abdomen) ...Auscultate: Yes: Normoactive Bowel Sounds ...Palpate: Yes: Soft. No: Guarding, Hepatomegaly, Splenomegaly, Tenderness ( No focal tenderness to palpation), Tenderness, Rebound ...Percussion: No: Tympanitic ...Rectal Exam: Yes: Other (Recapper present: No external lesions, no masses, no blood/melena, no fecal impaction. Light martell stool in rectal vault) Edema: No (No LE edema) Neurological: Yes: Alert Labs: CBC, BMP 04/30/18 06:00 04/30/18 06:00 Problem List - Problems (1) Abdominal pain Assessment/Plan: No focal findings on physical exam ? stercoral ulceration due to fecal retention WBC continued to rise Continue bowel regimen Consider ID evaluation D/C'd zofran Ordered CTA of A/P w and w/o contrast Code(s): R10.9 - UNSPECIFIED ABDOMINAL PAIN Qualifiers: Abdominal location: unspecified location Qualified Code(s): R10.9 - Unspecified abdominal pain
[2018-04-30] MEDS ORDERED: INSULIN (NOVOLOG) ASPART 100 UNITS/ML 10ML VIAL ONE ×2 (11:48→21:46)
--- NOTE | 2018-04-30 13:19 | PN ---
Progress Note (short form) - Note Progress Note: Attending Surgeon Much the same; case d/w son and Dr. Shin (GI) VSS AF abdo-no evidence of an acute surgical abdomen WBC17.9 IMP: abdominal pain PLAN: As per GI?Medical team; will f/u. Carmine Jorge MD FACS
[2018-04-30] MEDS: SODIUM CHLORIDE 0.9%/KCL 20 MEQ/1,000 ML INFUS.BAG IV SCH (17:11)
--- NOTE | 2018-04-30 20:49 | CONSULT ---
Consult Consult Specialty:: endocrine Referred by:: dr.iyad garces Reason for Consultation:: diabetes mellitus hyperglycemia - History of Present Illness Chief Complaint: abdominal pain History of Present Illness: 78 y/o woman with a PMHx of DM2, HTN, HLD, Arthritis, Anxiety. Who presents to the ED with complaints of abdominal pain. The patient is with her daughter who is providing the history. The patient has worsening abdominal pain which is epigastric pain which is nonradiating, associated w, nausea, and vomiting. She has been unable to tolerate PO . She was recently discharged from our facility for the same abdominal pain and diagnosed with IBD. since admission she has notible fecal impaction,which has required laxatives. - Past Medical History [employer]: Yes: Dementia, Peripheral Neuropathy, Parkinson's Cardio/Vascular: Yes: HTN, Hyperlipdemia Gastrointestinal: Yes: Diverticulosis Psych: Yes: Anxiety Musculoskeletal: Yes: Osteoarthritis Endocrine: Yes: Diabetes Mellitus - Past Surgical History Past Surgical History: Yes: Appendectomy, Cholecystectomy, - Alcohol/Substance Use Hx Alcohol Use: No - Smoking History Smoking history: Smoker current status UNK Have you smoked in the past 12 months: No Aproximately how many cigarettes per day: 0 - Social History Usual Living Arrangement: With Significant Other 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 History of Recent Travel: No Home Medications - Allergies Allergies/Adverse Reactions: Allergies Allergy/AdvReac Type Severity Reaction Status Date / Time valsartan [From Diovan] Allergy Mild Verified 04/27/18 18:41 - Home Medications Home Medications: Ambulatory Orders Aspirin [ASA -] 81 mg PO DAILY 09/09/15 Olmesartan/Hydrochlorothiazide [Benicar Hct 40-12.5MG Tab -] 1 tab PO DAILY Multivitamins [Multivit ([facility] Formulary)] 1 tab PO DAILY tab 08/19/17 Donepezil HCl 10 mg PO DAILY 02/01/18 Metoclopramide HCl 5 mg PO DAILY 02/01/18 Pramipexole Di-HCl [Pramipexole Dihydrochloride] 1 mg PO HS 02/01/18 Rosuvastatin [Crestor -] 10 mg PO HS 02/01/18 Insulin Glargine,Hum.rec.anlog [Lantus (10mL VIAL) -] 34 units SQ ACBK 02/02/18 Bupropion HCl [Wellbutrin Xl -] 150 mg PO DAILY #30 tab.sr.24h 02/09/18 Divalproex [Depakote -] 250 mg PO DAILY tablet.ec 02/09/18 Nifedipine ER [Procardia XL -] 60 mg PO DAILY #30 tab.er.24 02/09/18 Pantoprazole Sodium [Protonix -] 40 mg PO DAILY #30 tablet.ec 02/09/18 Polyethylene Glycol 3350 [Miralax 119 gm Btl -] 17 gm PO BID bottle 02/09/18 Divalproex [Depakote -] 250 mg PO DAILY #30 tablet.ec 04/24/18 Lipase/Protease/Amylase [Elaine Sweeney 36,000 Units Capsule] 1 cap PO TIDCM #90 capsule. 04/24/18 Rifaximin [Xifaxan -] 550 mg PO TID #90 tablet 04/24/18 clonazePAM [Klonopin -] 0.25 mg PO Q12H PRN #60 tablet MDD 2 04/24/18 hydrALAZINE HCL [Apresoline -] 25 mg PO BID #60 tablet 04/24/18 Review of Systems - Review of Systems Constitutional: reports: Lethargy, Weakness Eyes: reports: No Symptoms HENT: reports: No Symptoms Neck: reports: No Symptoms Cardiovascular: reports: Shortness of Breath Respiratory: reports: Exercise Intolerance, SOB on Exertion Gastrointestinal: reports: Bloating, Nausea Musculoskeletal: reports: Joint Pain, Muscle Weakness Neurological: reports: Confusion, Unsteady Gait, Weakness Physical Exam Vital Signs: Vital Signs Temperature 99.2 F 04/30/18 18:26 Pulse Rate 107 H 04/30/18 18:26 Respiratory Rate 20 04/30/18 18:26 Blood Pressure 151/73 04/30/18 18:26 O2 Sat by Pulse Oximetry (%) 99 04/30/18 09:00 Constitutional: Yes: Anxious Eyes: Yes: EOM Intact HENT: Yes: Normocephalic Neck: Yes: Trachea Midline Cardiovascular: Yes: Regular Rate and Rhythm Respiratory: Yes: CTA Bilaterally Gastrointestinal: Yes: Normal Bowel Sounds, Soft, Tenderness, Epigastrium ...Rectal Exam: Yes: Deferred Renal/: Yes: WNL Musculoskeletal: Yes: WNL Extremities: Yes: WNL Edema: No Neurological: Yes: Alert, Oriented Labs: CBC, BMP 04/30/18 06:00 04/30/18 06:00 Problem List - Problems (1) JASPER (acute kidney injury) Code(s): N17.9 - ACUTE KIDNEY FAILURE, UNSPECIFIED (2) Arthritis Code(s): M19.90 - UNSPECIFIED OSTEOARTHRITIS, UNSPECIFIED SITE (3) Dementia Code(s): F03.90 - UNSPECIFIED DEMENTIA WITHOUT BEHAVIORAL DISTURBANCE (4) HLD (hyperlipidemia) Code(s): E78.5 - HYPERLIPIDEMIA, UNSPECIFIED (5) Abdominal pain Code(s): R10.9 - UNSPECIFIED ABDOMINAL PAIN Qualifiers: Abdominal location: unspecified location Qualified Code(s): R10.9 - Unspecified abdominal pain (6) Anemia Code(s): D64.9 - ANEMIA, UNSPECIFIED Assessment/Plan Current Active Problems JASPER (acute kidney injury) (Acute) Arthritis (Acute) Dementia (Acute) HLD (hyperlipidemia) (Acute) Hypokalemia (Acute) Nausea and vomiting (Acute) dm 2 gastroparesis Abnormal Lab Results 04/30/18 04/30/18 04/30/18 06:00 06:00 14:35 WBC 17.6 H RBC 3.44 L Hgb 9.8 L Hct 28.5 L Plt Count 527 H ESR Chloride 110 H Random Glucose 199 H Alkaline Phosphatase 141 H C-Reactive Protein 2.1 H Total Protein 5.9 L Albumin 2.6 L Total Amylase 13 L Lipase 38 L 04/30/18 14:35 WBC RBC Hgb Hct Plt Count ESR 57 H Chloride Random Glucose Alkaline Phosphatase C-Reactive Protein Total Protein Albumin Total Amylase Lipase Laboratory Tests 04/29/18 04/30/18 04/30/18 20:58 06:00 06:08 Sodium 143 Potassium 4.2 Chloride 110 H Carbon Dioxide 26 Anion Gap 8 BUN 17 Creatinine 1.2 POC Glucometer 197 223 Random Glucose 199 H 04/30/18 04/30/18 11:44 16:47 Sodium Potassium Chloride Carbon Dioxide Anion Gap BUN Creatinine POC Glucometer 198 169 Random Glucose plan: while poor intake maintain bgm achs coverage novolog iv fluid motility medication levemir 20 units am when diet improves
[2018-04-30] MEDS: PRAMIPEXOLE DIHYDROCHLORIDE 1 MG TABLET PO SCH (21:44)
[2018-04-30] MEDS: ROSUVASTATIN CA 10 MG TABLET (FP) PO SCH (21:44)
[2018-05-01] MEDS: morphine SULFATE 4 MG/ML VIAL IVPUSH PRN ×3 (05:13→21:17)
[2018-05-01] MEDS ORDERED: INSULIN (NOVOLOG) ASPART 100 UNITS/ML 10ML VIAL ONE ×2 (06:59→11:16)
[2018-05-01] MEDS: INSULIN SLIDING SCALE (NOVOLOG) 1 VIAL SQ SCH ×4 (07:00→21:20)
--- NOTE | 2018-05-01 08:37 | PN ---
Progress Note, Physician History of Present Illness: c/o abdominal pain - Current Medication List Current Medications: Active Medications Aspirin (Ecotrin -) [address] [facility] Last Admin: 04/30/18 10:32 Dose: Not Given Bupropion HCl (Wellbutrin Xl -) [address] [facility] Last Admin: 04/30/18 10:32 Dose: Not Given Divalproex Sodium (Depakote -) [address] [facility] Last Admin: 04/30/18 10:12 Dose: 250 mg Heparin Sodium (Porcine) (Heparin -) 5,[address] [facility] Last Admin: 04/30/18 21:44 Dose: 5,000 unit Hydralazine HCl (Apresoline -) [address] [facility] Last Admin: 04/30/18 21:44 Dose: 25 mg Ceftriaxone Sodium 1 gm/ (Dextrose) 50 mls @ 100 mls/hr IVPB DAILY [facility]; Protocol Stop: 05/05/18 10:30 Last Admin: 04/30/18 10:13 Dose: 100 mls/hr Metronidazole (Flagyl 500mg Premixed Ivpb -) 500 mg in 100 mls @ 100 mls/hr IVPB Q8H-IV [facility] Last Admin: 05/01/18 02:25 Dose: 100 mls/hr Sodium Chloride (Normal Saline -) 1,000 mls @ 150 mls/hr IV ASDIR [facility] Stop: 05/01/18 14:39 Last Admin: 04/30/18 08:08 Dose: Not Given Potassium Chloride/Sodium Chloride (Ns+20 Meq Kcl -) 20 meq in 1,000 mls @ 100 mls/hr IV ASDIR [facility] Last Admin: 04/30/18 17:11 Dose: 100 mls/hr Insulin Aspart (Novolog Vial Sliding Scale -) [address] [facility]; Protocol Last Admin: 05/01/18 07:00 Dose: 2 units Morphine Sulfate (Morphine Sulfate) 4 mg IVPUSH Q6H PRN PRN Reason: PAIN LEVEL 6-10 Last Admin: 05/01/18 05:13 Dose: 4 mg Nifedipine (Procardia Xl -) [address] [facility] Last Admin: 04/30/18 10:12 Dose: 60 mg Pantoprazole Sodium (Protonix Iv) [address] [facility] Last Admin: 04/30/18 10:13 Dose: 40 mg Polyethylene Glycol (Miralax (For Daily Use) -) [address] [facility] Last Admin: 04/30/18 21:44 Dose: Not Given Pramipexole Dihydrochloride (Mirapex -) 1 mg PO [facility] Last Admin: 04/30/18 21:44 Dose: 1 mg Rosuvastatin Calcium (Crestor -) 10 mg PO [facility] Last Admin: 04/30/18 21:44 Dose: Not Given - Objective Vital Signs: Vital Signs Temperature 100.0 F H 05/01/18 06:00 Pulse Rate 105 H 05/01/18 06:00 Respiratory Rate 20 05/01/18 06:00 Blood Pressure 156/65 05/01/18 06:00 O2 Sat by Pulse Oximetry (%) 99 04/30/18 21:00 Cardiovascular: Yes: Regular Rate and Rhythm Respiratory: Yes: Regular, CTA Bilaterally Gastrointestinal: Yes: Normal Bowel Sounds, Soft, Tenderness Problem List - Problems (1) Leukocytosis Assessment/Plan: -unknown etiology id consul follow cultures ct scan Code(s): D72.829 - ELEVATED WHITE BLOOD CELL COUNT, UNSPECIFIED (2) Abdominal pain Assessment/Plan: -pt without tenderness +wbc id consult gi and surgery on case ct ordered by dr mendoza needs iv access--unable to obtain larger than 22--dr charles notified surgical follow up for access Code(s): R10.9 - UNSPECIFIED ABDOMINAL PAIN Qualifiers: Abdominal location: unspecified location Qualified Code(s): R10.9 - Unspecified abdominal pain (3) HLD (hyperlipidemia) Code(s): E78.5 - HYPERLIPIDEMIA, UNSPECIFIED (4) Diabetes Code(s): E11.9 - TYPE 2 DIABETES MELLITUS WITHOUT COMPLICATIONS Qualifiers: Diabetes mellitus type: type 2
[2018-05-01] MEDS ORDERED: DEXTROSE 5%-WATER - 50 ML IVPB ONE (08:40)
[2018-05-01] MEDS ORDERED: cefTRIAXone SODIUM 1 GM VIAL ONE (08:40)
[2018-05-01] MEDS ORDERED: PT OWN MED DRAWER 7, Y5N ONE ×4 (08:40→21:11)
[2018-05-01 08:43] LABS: BASO % 0.5 % (0-2.0); EOS % 0.4 % (0-4.5); HEMATOCRIT 29.1 % (32.4-45.2); HEMOGLOBIN 9.7 GM/dL (10.7-15.3); LYMPH % 7.3 % (8-40); MCHC 33.4 g/dl (32.0-36.0); MEAN PLT VOLUME 8.3 fl (7.5-11.1); NEUT % 80.8 % (42.8-82.8); PLATELET COUNT 471 K/MM3 (134-434); RBC 3.46 M/mm3 (3.60-5.2); RDW 15.2 % (11.6-15.6); WHITE BLOOD COUNT 11.9 K/mm3 (4.0-10.0)
[2018-05-01] MEDS: hydrALAZINE HCL 25 MG TABLET (FP) PO SCH ×2 (09:12→21:18)
[2018-05-01] MEDS: PANTOPRAZOLE SODIUM 40 MG VIAL IVPB SCH (09:12)
[2018-05-01] MEDS: CEFTRIAXONE 1 GM in DEXTROSE 5%-WATER - 50 ML IVPB SCH (09:12)
[2018-05-01] MEDS: HEPARIN NA (PORCINE) 5,000 UNITS/ML 1ML VIAL SQ SCH ×2 (09:12→21:18)
[2018-05-01] MEDS: ASPIRIN COATED 81 MG TABLET.EC PO SCH (09:12)
[2018-05-01 09:19] LABS: ALBUMIN 2.3 g/dl (3.4-5.0); ALK PHOS 149 U/L (45-117); ANION GAP 6 MMOL/L (8-16); BILIRUBIN,TOTAL 0.3 mg/dL (0.2-1); BLOOD UREA NITROGEN 16 mg/dL (7-18); CALCIUM 8.3 mg/dL (8.5-10.1); CHLORIDE 115 mmol/L (98-107); CO2 27 mmol/L (21-32); CREATININE 1.2 mg/dL (0.55-1.3); GLUCOSE,RANDOM 166 mg/dL (74-106); POTASSIUM 4.3 mmol/L (3.5-5.1); SGOT/AST 19 U/L (15-37); SGPT/ALT 24 U/L (13-61); SODIUM 148 mmol/L (136-145); TOT PROT 5.6 g/dl (6.4-8.2)
--- NOTE | 2018-05-01 09:32 | PN ---
GI Progress Note Subjective: For Dr. Ibanez who resumes care 05/02 Continued fevers Continued episodes of spasms When I ask if she is having pain, she nods yes. When I ask her to localize the pain, she still point to her back Contrast imaging still has not been performed as of yet due to inadequate IV access. - Objective Vital Signs: Vital Signs Temperature 100.0 F H 05/01/18 06:00 Pulse Rate 105 H 05/01/18 06:00 Respiratory Rate 20 05/01/18 06:00 Blood Pressure 156/65 05/01/18 06:00 O2 Sat by Pulse Oximetry (%) 99 04/30/18 21:00 Constitutional: Calm Eyes: No: Sclera Icterus Cardiovascular: Yes: Tachycardia Respiratory: Yes: Diminished (at bases b/l) Gastrointestinal Inspection: Yes: Scars, Other (Skin graft lower abdomen). No: Distention ...Auscultate: Yes: Normoactive Bowel Sounds ...Palpate: Yes: Soft, Tenderness (The physical exam is unclear. When I was palpating the LLQ, she had episodes of spasms at times, and at other times, showed no response to palpation of the LLQ.). No: Guarding, Tenderness, Rebound ...Percussion: No: Tympanitic Edema: No (No LE edema) Neurological: Yes: Alert Labs: CBC, BMP 05/01/18 07:30 05/01/18 07:30 Hepatic Panel Total Bilirubin 0.3 mg/dL (0.2-1) 05/01/18 07:30 AST 19 U/L (15-37) 05/01/18 07:30 ALT 24 U/L (13-61) 05/01/18 07:30 Alkaline Phosphatase 149 U/L (45-117) H 05/01/18 07:30 Albumin 2.3 g/dl (3.4-5.0) L 05/01/18 07:30 Problem List - Problems (1) Abdominal pain Assessment/Plan: Ms. Cole' abdominal exam is not clear. She did have some spasms when I examined the LLQ, however, had no response to that at times as well. Awaiting repeat CT scan of the abdomen and pelvis, triple phase, for reevaluation. Needs Adequate IV access for the exam as she currently only has a 22 gauge IV. Nurse states that she has discussed this with Dr. Espana and will advise him again regarding this. ? if imaging of spine needs to be considered as well given elevated ALP and complaints of back pain ID is following NPO, IV hydration Code(s): R10.9 - UNSPECIFIED ABDOMINAL PAIN Qualifiers: Abdominal location: unspecified location Qualified Code(s): R10.9 - Unspecified abdominal pain
[2018-05-01] MEDS: DIVALPROEX SODIUM 250 MG TABLET E.C. PO SCH ×2 (10:39→22:38)
[2018-05-01] MEDS: NIFEdipine E.R 60 MG TABLET (UD) PO SCH (10:39)
[2018-05-01] MEDS: POLYETHYLENE GLYCOL 3350 119 GM BTL PO SCH ×2 (10:39→21:21)
--- NOTE | 2018-05-01 13:59 | PN ---
Progress Note (short form) - Note Progress Note: Attending Surgeon Much the same VSS AF abdo-soft and nontender when distracted WBC11.9 IMP: ? abdominal pain; no evidence of an acute surgical abdomen PLAN: Advise trial of clear liquids. Carmine Jorge MD FACS
--- NOTE | 2018-05-01 15:20 | PN ---
Progress Note (short form) - Note Progress Note: ID CONSULT DICTATED LEUKOCYTOSIS ABDOMINAL PAIN SYNDROME ? ETIOLOGY REPEAT BC AWAIT REPEAT CT A/P CONTINUE CEFTRIAXONE/ FLAGYL
--- NOTE | 2018-05-01 15:56 | CONS ---
INFECTIOUS DISEASE CONSULTATION DATE OF CONSULTATION: DATE OF DICTATION: 05/01/2018 A 78-year-old female evaluated for leukocytosis. History was obtained from the chart as patient cannot give a reliable history. She was admitted to the hospital on April 27, 2018. She had recently been admitted for nausea, vomiting, and dizziness. She was diagnosed with electrolyte imbalance and irritable bowel syndrome. She now returns with complaints of abdominal pain for 2 days, associated with nausea, vomiting, and decreased oral intake. A CAT scan of the abdomen and pelvis was performed and was positive for fecal impaction. Her hospital course significant for continued abdominal pain. She was seen in consultation by Gastroenterology and Surgery without definitive diagnosis. Her course has now been complicated by elevated white blood cell count and low-grade fever. A repeat CAT scan has been ordered. Patient is awake, but not conversant. She offers no complaints. When questioned about abdominal pain, she shakes her head no. No reports of vomiting or diarrhea. No reports of labored breathing, cough, sputum production, grossly purulent urine, or infected decubitus ulcers. PAST MEDICAL HISTORY: Positive for diabetes mellitus, hypertension, hyperlipidemia, parkinsonism, dementia, peripheral neuropathy, osteoarthritis. MEDICATIONS: Include aspirin, ceftriaxone, Flagyl, Depakote, Apresoline, Procardia, Protonix, Crestor. SOCIAL HISTORY: Patient resides in the community. No documented tobacco or alcohol use. LABORATORY DATA: White count 11.9, hematocrit 29.1, platelet count 471. BUN 16, creatinine 1.2. Total bilirubin 0.3, alkaline phosphatase 149, AST 19. Urinalysis: One white cell. Amylase 13, lipase 38. ESR 57. C-reactive protein 2.1. Blood cultures and urine culture negative. Chest x-ray has been ordered. PHYSICAL EXAMINATION: General: She is awake. She is not verbally responsive. She is in no acute distress. Vital Signs: Temperature 98.5; blood pressure 133/57; pulse 96, regular; respirations 21 per minute; T-max 100.5. HEENT: Sclerae are anicteric. Neck: Supple. Heart: Sounds S1, S2. Lungs: Clear. Abdomen: Soft. Positive bowel sounds. No tenderness elicited. No mass, rebound, or rigidity. Extremities: Negative for edema. IMPRESSION: 1. Leukocytosis, unclear source. 2. Abdominal pain syndrome. 3. Low-grade fever. Source of elevated white blood cell count and low-grade fever not clear. We will repeat blood cultures, obtain chest x-ray, repeat urinalysis and urine culture. Await repeat CAT scan of the abdomen and pelvis. Continue ceftriaxone and Flagyl. Thank you for the kind referral. BRANDIN MOE M.D. [id number]
[2018-05-01] MEDS ORDERED: LORazepam 2 MG/ML SDV VIAL IVPUSH ONE (16:35)
[2018-05-01 16:37] LABS: URINE APPEARANCE CLEAR; URINE BILIRUBIN NEGATIVE (<2.0 mg/dL); URINE COLOR YELLOW; URINE GLUCOSE (UA) NEGATIVE (NEGATIVE); URINE KETONE TRACE (NEGATIVE); URINE LEUK ESTERASE TRACE (NEGATIVE); URINE NITRITE NEGATIVE (NEGATIVE); URINE PROTEIN 3+ (NEGATIVE); URINE UROBILINOGEN NEGATIVE mg/dL (0.2-1.0)
[2018-05-01 16:50] LABS: URINE MUCUS RARE
[2018-05-01] MEDS: SODIUM CHLORIDE 0.9%/KCL 20 MEQ/1,000 ML INFUS.BAG IV SCH (17:04)
[2018-05-01 17:24] LABS: MAGNESIUM 2.7 mg/dL (1.8-2.4)
[2018-05-01] MEDS: ROSUVASTATIN CA 10 MG TABLET (FP) PO SCH (21:18)
[2018-05-01] MEDS: PRAMIPEXOLE DIHYDROCHLORIDE 1 MG TABLET PO SCH (21:19)
--- NOTE | 2018-05-01 22:22 | CON.NEURO ---
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: Yes: Dementia, Peripheral Neuropathy, Parkinson's Cardio/Vascular: Yes: HTN, Hyperlipdemia Gastrointestinal: Yes: Diverticulosis Psych: Yes: Anxiety Musculoskeletal: Yes: Osteoarthritis Endocrine: Yes: Diabetes Mellitus - Past Surgical History Past Surgical History: Yes: Appendectomy, Cholecystectomy, - Alcohol/Substance Use Hx Alcohol Use: No - Smoking History Smoking history: Smoker current status UNK Have you smoked in the past 12 months: No Aproximately how many cigarettes per day: 0 - Social History Usual Living Arrangement: With Significant Other 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 History of Recent Travel: No Home Medications - Allergies Allergies/Adverse Reactions: Allergies Allergy/AdvReac Type Severity Reaction Status Date / Time valsartan [From Regen] Allergy Mild Verified 04/27/18 18:41 - Home Medications Home Medications: Ambulatory Orders Aspirin [ASA -] 81 mg PO DAILY 09/09/15 Olmesartan/Hydrochlorothiazide [Benicar Hct 40-12.5MG Tab -] 1 tab PO DAILY Multivitamins [Multivit ([facility] Formulary)] 1 tab PO DAILY tab 08/19/17 Donepezil HCl 10 mg PO DAILY 02/01/18 Metoclopramide HCl 5 mg PO DAILY 02/01/18 Pramipexole Di-HCl [Pramipexole Dihydrochloride] 1 mg PO HS 02/01/18 Rosuvastatin [Crestor -] 10 mg PO HS 02/01/18 Insulin Glargine,Hum.rec.anlog [Lantus (10mL VIAL) -] 34 units SQ ACBK 02/02/18 Bupropion HCl [Wellbutrin Xl -] 150 mg PO DAILY #30 tab.sr.24h 02/09/18 Divalproex [Depakote -] 250 mg PO DAILY tablet.ec 02/09/18 Nifedipine ER [Procardia XL -] 60 mg PO DAILY #30 tab.er.24 02/09/18 Pantoprazole Sodium [Protonix -] 40 mg PO DAILY #30 tablet.ec 02/09/18 Polyethylene Glycol 3350 [Miralax 119 gm Btl -] 17 gm PO BID bottle 02/09/18 Divalproex [Depakote -] 250 mg PO DAILY #30 tablet.ec 04/24/18 Lipase/Protease/Amylase [Creon Dr 36,000 Units Capsule] 1 cap PO TIDCM #90 capsule. 04/24/18 Rifaximin [Xifaxan -] 550 mg PO TID #90 tablet 04/24/18 clonazePAM [Klonopin -] 0.25 mg PO Q12H PRN #60 tablet MDD 2 04/24/18 hydrALAZINE HCL [Apresoline -] 25 mg PO BID #60 tablet 04/24/18 Physical Exam-Neuro Vital Signs: Vital Signs Temperature 98.7 F 05/01/18 20:00 Pulse Rate 104 H 05/01/18 20:00 Respiratory Rate 20 05/01/18 20:00 Blood Pressure 154/71 05/01/18 20:00 O2 Sat by Pulse Oximetry (%) 95 05/01/18 09:00 Labs: CBC, BMP 05/01/18 07:30 05/01/18 07:30 Assessment/Plan cc Abnormal sudden jerky motion of whole body HPI 78 year old female history of IDDM, HTN,HLD,Anxiety, PD( on mirapex), Peripheral neuropathy, Dementia. Patient has come to hospital for Abdominal pain and fecal impaction. NOw patient is having bowel movmeent but not today. She is found to have intermittent whole body shaking . She is not able to provide history, chart was reviewed and spoke to nursing staff. There has not been any new focal neurological symptoms, except she has been confused . She has ct head done today. PMH Dementian, IDDM,HTN,HLD,PD,Divertoculosis, Osteoarthritis. , not clear why she is on depakote PMH as above. Past Surgical History: Appendectomy, Cholecystectomy, Social History no toxic habits Allergies/Adverse Reactions: Allergies Allergy/AdvReac Type Severity Reaction Status Date / Time valsartan [From Diovan] Allergy Mild Verified 04/27/18 18:41 Home Medications: Aspirin [ASA -] 81 mg PO DAILY 09/09/15 Olmesartan/Hydrochlorothiazide [Benicar Hct 40-12.5MG Tab -] 1 tab PO DAILY Multivitamins [Multivit ([facility] Formul[facility])] 1 tab PO DAILY tab 08/19/17 Donepezil HCl 10 mg PO DAILY 02/01/18 Metoclopramide HCl 5 mg PO DAILY 02/01/18 Pramipexole Di-HCl [Pramipexole Dihydrochloride] 1 mg PO HS 02/01/18 Rosuvastatin [Crestor -] 10 mg PO HS 02/01/18 Insulin Glargine,Hum.rec.anlog [Lantus (10mL VIAL) -] 34 units SQ ACBK 02/02/18 Bupropion HCl [Wellbutrin Xl -] 150 mg PO DAILY #30 tab.sr.24h 02/09/18 Divalproex [Depakote -] 250 mg PO DAILY tablet.ec 02/09/18 Nifedipine ER [Procardia XL -] 60 mg PO DAILY #30 tab.er.24 02/09/18 Pantoprazole Sodium [Protonix -] 40 mg PO DAILY #30 tablet.ec 02/09/18 Polyethylene Glycol 3350 [Miralax 119 gm Btl -] 17 gm PO BID bottle 02/09/18 Divalproex [Depakote -] 250 mg PO DAILY #30 tablet.ec 04/24/18 Lipase/Protease/Amylase [Elaine Sweeney 36,000 Units Capsule] 1 cap PO TIDCM #90 capsule. 04/24/18 Rifaximin [Xifaxan -] 550 mg PO TID #90 tablet 04/24/18 clonazePAM [Klonopin -] 0.25 mg PO Q12H PRN #60 tablet MDD 2 04/24/18 hydrALAZINE HCL [Apresoline -] 25 mg PO BID #60 tablet 04/24/18 FH,ROS,SH reviewed in chart NEUROLOGICAL Examination Alert , follow command, no neck stiffness oriented x 1, she is not able to engage in conversation eomi, pupils reactive, no face asymmetry moving all ext sensation is noraml reflex are generalized diminished ct head no official report available , reviewed and no acute findings Assessment/Plan 1.sudden abnormal jerky motions seems to be Myoclonic jerks, seems to be secondary to multiple medical problem. suggest to correct metabolic abnormality and intercurrent medical problem( hypernatremia, hyper glycemia , GI issues). She is on depakote 250 mg po once a day , depakote can be increased to 250 mg po bid and if not controlled, clonazepam can be added, as she was in clonazepam for ? anxiety. an EEG can also be obtained. 2. Cognitive difficulty seems to be due to metabolic encephalopathy and dementia. continue supportive care Thanking you so much Deion Florez MD
[2018-05-01] MEDS ORDERED: ONDANSETRON 4 MG/2 ML VIAL IVPUSH ONE (22:44)
[2018-05-02] MEDS: morphine SULFATE 4 MG/ML VIAL IVPUSH PRN (05:49)
[2018-05-02] MEDS: SODIUM CHLORIDE 0.9%/KCL 20 MEQ/1,000 ML INFUS.BAG IV SCH (05:51)
[2018-05-02] MEDS: INSULIN SLIDING SCALE (NOVOLOG) 1 VIAL SQ SCH ×4 (06:54→22:42)
[2018-05-02 08:01] LABS: BASO % 0.6 % (0-2.0); HEMATOCRIT 27.9 % (32.4-45.2); HEMOGLOBIN 9.5 GM/dL (10.7-15.3); LYMPH % 14.2 % (8-40); MCH 28.8 pg (25.7-33.7); MCHC 34.2 g/dl (32.0-36.0); MEAN CELL VOLUME 84.3 fl (80-96); MONO % 14.4 % (3.8-10.2); NEUT % 68.8 % (42.8-82.8); PLATELET COUNT 448 K/MM3 (134-434); RDW 15.4 % (11.6-15.6); WHITE BLOOD COUNT 8.1 K/mm3 (4.0-10.0)
--- NOTE | 2018-05-02 08:09 | PN ---
Progress Note, Physician Chief Complaint: Abdominal Pain DM History of Present Illness: Patient examined and case discussed with Dr. Ibanez GI FOLLOW UP NOTE Patient complains of RLQ pain and experienced one episode of nausea during the night. Her WBC is trending down and now currently 11.9 but did experience low grade fever during the night. Abdomen and Pelvic CT scan show extensive diverticulitis coli mainly in sigmoid colon without evidence of acute diverticulitis, non distention of interval thickening of distal sidmoid colon wall, cannot rule out colitis. - Current Medication List Current Medications: Active Medications Aspirin (Ecotrin -) 81 mg PO DAILY [facility] Last Admin: 05/01/18 09:12 Dose: 81 mg Bupropion HCl (Wellbutrin Xl -) 150 mg PO DAILY [facility] Last Admin: 05/01/18 09:12 Dose: 150 mg Divalproex Sodium (Depakote -) 250 mg PO BID [facility] Last Admin: 05/01/18 22:38 Dose: 250 mg Heparin Sodium (Porcine) (Heparin -) 5,000 unit SQ BID [facility] Last Admin: 05/01/18 21:18 Dose: 5,000 unit Hydralazine HCl (Apresoline -) 25 mg PO BID [facility] Last Admin: 05/01/18 21:18 Dose: 25 mg Ceftriaxone Sodium 1 gm/ (Dextrose) 50 mls @ 100 mls/hr IVPB DAILY [facility]; Protocol Stop: 05/05/18 10:30 Last Admin: 05/01/18 09:12 Dose: 100 mls/hr Metronidazole (Flagyl 500mg Premixed Ivpb -) 500 mg in 100 mls @ 100 mls/hr IVPB Q8H-IV [facility] Last Admin: 05/02/18 01:29 Dose: 100 mls/hr Potassium Chloride/Sodium Chloride (Ns+20 Meq Kcl -) 20 meq in 1,000 mls @ 100 mls/hr IV ASDIR [facility] Last Admin: 05/02/18 05:51 Dose: 100 mls/hr Insulin Aspart (Novolog Vial Sliding Scale -) 1 vial SQ ACHS [facility]; Protocol Last Admin: 05/02/18 06:54 Dose: Not Given Morphine Sulfate (Morphine Sulfate) 4 mg IVPUSH Q6H PRN PRN Reason: PAIN LEVEL 6-10 Last Admin: 05/02/18 05:49 Dose: 4 mg Nifedipine (Procardia Xl -) 60 mg PO DAILY [facility] Last Admin: 02/10/19 10:39 Dose: 60 mg Pantoprazole Sodium (Protonix Iv) 40 mg IVPB DAILY [facility] Last Admin: 05/01/18 09:12 Dose: 40 mg Polyethylene Glycol (Miralax (For Daily Use) -) 17 gm PO BID [facility] Last Admin: 05/01/18 21:21 Dose: 17 gm Pramipexole Dihydrochloride (Mirapex -) 1 mg PO [facility] Last Admin: 05/01/18 21:19 Dose: 1 mg Rosuvastatin Calcium (Crestor -) 10 mg PO [facility] Last Admin: 05/01/18 21:18 Dose: 10 mg - Objective Vital Signs: Vital Signs Temperature 100.2 F H 05/02/18 06:43 Pulse Rate 95 H 05/02/18 06:43 Respiratory Rate 20 05/02/18 06:43 Blood Pressure 149/97 05/02/18 06:43 O2 Sat by Pulse Oximetry (%) 98 05/01/18 21:00 Constitutional: Yes: No Distress, Calm Eyes: Yes: Conjunctiva Clear Cardiovascular: Yes: Regular Rate and Rhythm Respiratory: Yes: Regular, CTA Bilaterally Gastrointestinal: Yes: Soft, Hypoactive Bowel Sounds, Tenderness (RLQ). No: WNL , Normal Bowel Sounds, Abdomen, Obese, Ascites, Distention, Hematemesis, Hemorrhoids, Hepatomegaly, Hernia, Hyperactive Bowel Sounds, Melena, Palpable Mass, Pulsatile Mass, Rectal Bleeding, Splenomegaly, Tenderness, Epigastrium, Tenderness, Rebound, Vomiting, Other Genitourinary: Yes: Schultz Present Musculoskeletal: Yes: Muscle Weakness Neurological: Yes: Alert, Pre-Existing Deficit, Other (jerking movements noted) - ....Imaging Cat Scan: Report Reviewed Problem List - Problems (1) HLD (hyperlipidemia) Code(s): E78.5 - HYPERLIPIDEMIA, UNSPECIFIED (2) Nausea and vomiting Assessment/Plan: -placed on NPO Code(s): R11.2 - NAUSEA WITH VOMITING, UNSPECIFIED Qualifiers: Vomiting type: unspecified Vomiting Intractability: intractable Qualified Code(s): R11.2 - Nausea with vomiting, unspecified (3) Abdominal pain Assessment/Plan: -placed on NPO -cont with ceftriaxone 1g IVPB daily and flagyl 500mg IVPB q8h -Abd/Pelvic CT scan reviewed -pain management Code(s): R10.9 - UNSPECIFIED ABDOMINAL PAIN Qualifiers: Abdominal location: unspecified location Qualified Code(s): R10.9 - Unspecified abdominal pain (4) Uncontrolled diabetes mellitus Code(s): E11.65 - TYPE 2 DIABETES MELLITUS WITH HYPERGLYCEMIA Qualifiers: Diabetes mellitus type: type 2
[2018-05-02] MEDS ORDERED: LORazepam 2 MG/ML SDV VIAL IVPUSH PRN (08:20)
[2018-05-02 08:23] LABS: ALBUMIN 2.2 g/dl (3.4-5.0); ALK PHOS 152 U/L (45-117); ANION GAP 6 MMOL/L (8-16); BILIRUBIN,TOTAL 0.3 mg/dL (0.2-1); BLOOD UREA NITROGEN 17 mg/dL (7-18); CALCIUM 8.1 mg/dL (8.5-10.1); CHLORIDE 120 mmol/L (98-107); CO2 27 mmol/L (21-32); CREATININE 1.2 mg/dL (0.55-1.3); GLUCOSE,RANDOM 135 mg/dL (74-106); POTASSIUM 4.7 mmol/L (3.5-5.1); SGOT/AST 23 U/L (15-37); SGPT/ALT 25 U/L (13-61); SODIUM 153 mmol/L (136-145); TOT PROT 5.3 g/dl (6.4-8.2)
[2018-05-02] MEDS ORDERED: cefTRIAXone SODIUM 1 GM VIAL ONE (09:02)
[2018-05-02] MEDS ORDERED: PT OWN MED DRAWER 7, Y5N ONE ×3 (09:02→22:18)
[2018-05-02] MEDS ORDERED: DEXTROSE 5%-WATER - 50 ML IVPB ONE ×2 (09:03→15:22)
[2018-05-02] MEDS: ASPIRIN COATED 81 MG TABLET.EC PO SCH (09:18)
[2018-05-02] MEDS: hydrALAZINE HCL 25 MG TABLET (FP) PO SCH ×2 (09:19→22:31)
[2018-05-02] MEDS: DIVALPROEX SODIUM 250 MG TABLET E.C. PO SCH (09:19)
[2018-05-02] MEDS: HEPARIN NA (PORCINE) 5,000 UNITS/ML 1ML VIAL SQ SCH ×2 (09:20→22:31)
[2018-05-02] MEDS: POLYETHYLENE GLYCOL 3350 119 GM BTL PO SCH (09:21)
[2018-05-02] MEDS: NIFEdipine E.R 60 MG TABLET (UD) PO SCH (09:22)
[2018-05-02] MEDS: CEFTRIAXONE 1 GM in DEXTROSE 5%-WATER - 50 ML IVPB SCH (09:23)
[2018-05-02] MEDS: PANTOPRAZOLE SODIUM 40 MG VIAL IVPB SCH (09:23)
[2018-05-02] MEDS ORDERED: GLYCERIN 1 RECTAL SUPPOSITORY, ADULT PR PRN (09:37)
--- NOTE | 2018-05-02 09:51 | PN ---
Progress Note (short form) - Note Progress Note: 78 year old female history of IDDM, HTN,HLD,Anxiety, PD( on mirapex), Peripheral neuropathy, Dementia. Patient has come to hospital for Abdominal pain and fecal impaction. NOw patient is having bowel movmeent but not today. She is found to have intermittent whole body shaking . She is not able to provide history, chart was reviewed and spoke to nursing staff. There has not been any new focal neurological symptoms, except she has been confused . She has ct head done today. PMH Dementia, IDDM,HTN,HLD,PD,Divertoculosis, Osteoarthritis. Spoke to her daughter, she was on depakote for migraine headache. Spoke to daughter at bed side, she was quite upset regarding her mom having constipation. NEUROLOGICAL Examination Alert oriented x 0, follow command, no neck stiffness she is not able to engage in conversation eomi, pupils reactive, no face asymmetry moving all ext sensation is noraml reflex are generalized diminished ct head no acute findings Assessment/Plan 1.sudden abnormal jerky motions seems to be Myoclonic jerks, seems to be secondary to metabolic encphalopathy. ( hypernatremia, hyper glycemia , GI issues). She continue to have myoclonic jerks. EEG is pending Increase depakote to 500 mg IV bid, - Treat underlying metabolic derangement , Infection and constipation. 2. Cognitive difficulty seems to be due to metabolic encephalopathy and dementia. continue supportive care Thanking you so much Deion Florez MD
[2018-05-02] MEDS: LACTULOSE 20 GM/30 ML UDC (FOR ORAL USE ONLY) PO SCH ×2 (10:00→11:26)
--- NOTE | 2018-05-02 10:54 | PN ---
Progress Note, Physician Chief Complaint: Abdominal Pain DM History of Present Illness: Previous notes and events reviewed awake and confused but responds to verbal commands continue to have whole body jerking movements Na elev at 153 febrile with temp 101.9F rectally, received tylenol STAT - Current Medication List Current Medications: Active Medications Acetaminophen (Tylenol -) 650 mg PO Q4H PRN PRN Reason: FEVER Aspirin (Ecotrin -) 81 mg PO DAILY [facility] Last Admin: 05/02/18 09:18 Dose: 81 mg Bupropion HCl (Wellbutrin Xl -) 150 mg PO DAILY [facility] Last Admin: 05/02/18 09:23 Dose: 150 mg Glycerin (Glycerin Suppository Adult -) 1 each UT DAILY PRN PRN Reason: CONSTIPATION Heparin Sodium (Porcine) (Heparin -) 5,000 unit SQ BID [facility] Last Admin: 05/02/18 09:20 Dose: 5,000 unit Hydralazine HCl (Apresoline -) 25 mg PO BID [facility] Last Admin: 05/02/18 09:19 Dose: 25 mg Ceftriaxone Sodium 1 gm/ (Dextrose) 50 mls @ 100 mls/hr IVPB DAILY [facility]; Protocol Stop: 05/05/18 10:30 Last Admin: 05/02/18 09:23 Dose: 100 mls/hr Metronidazole (Flagyl 500mg Premixed Ivpb -) 500 mg in 100 mls @ 100 mls/hr IVPB Q8H-IV [facility] Last Admin: 05/02/18 09:20 Dose: 100 mls/hr Insulin Aspart (Novolog Vial Sliding Scale -) 1 vial SQ ACHS [facility]; Protocol Last Admin: 05/02/18 06:54 Dose: Not Given Lactulose (Cephulac (Oral Use)) 30 gm PO BID [facility] Lorazepam (Ativan Injection -) 0.5 mg IVPUSH Q8H PRN PRN Reason: ANXIETY Last Admin: 05/02/18 09:51 Dose: 0.5 mg Morphine Sulfate (Morphine Sulfate) 4 mg IVPUSH Q6H PRN PRN Reason: PAIN LEVEL 6-10 Last Admin: 05/02/18 05:49 Dose: 4 mg Nifedipine (Procardia Xl -) 60 mg PO DAILY [facility] Last Admin: 05/02/18 09:22 Dose: 60 mg Pantoprazole Sodium (Protonix Iv) 40 mg IVPB DAILY [facility] Last Admin: 05/02/18 09:23 Dose: 40 mg Pramipexole Dihydrochloride (Mirapex -) 1 mg PO HS [facility] Last Admin: 05/01/18 21:19 Dose: 1 mg Rosuvastatin Calcium (Crestor -) 10 mg PO HS [facility] Last Admin: 05/01/18 21:18 Dose: 10 mg Valproate Sodium (Depacon Injection -) 500 mg IVPB BID [facility] - Objective Vital Signs: Vital Signs Temperature 100.2 F H 05/02/18 06:43 Pulse Rate 95 H 05/02/18 06:43 Respiratory Rate 20 05/02/18 06:43 Blood Pressure 149/97 05/02/18 06:43 O2 Sat by Pulse Oximetry (%) 98 05/01/18 21:00 Constitutional: Yes: Calm, Moderate Distress Eyes: Yes: Conjunctiva Clear Cardiovascular: Yes: Regular Rate and Rhythm Respiratory: Yes: Accessory Muscle Use (minor), Diminished, On Nasal O2 Gastrointestinal: Yes: Normal Bowel Sounds, Soft, Tenderness (RLQ) Genitourinary: Yes: Schultz Present Musculoskeletal: Yes: Muscle Weakness Extremities: Yes: WNL Neurological: Yes: Alert, Pre-Existing Deficit Psychiatric: Yes: Alert Labs: CBC, BMP 05/02/18 06:20 05/02/18 06:20 Microbiology <Audrey Pastrana - Last Filed: 05/02/18 16:55> - Current Medication List Current Medications: Active Medications Acetaminophen (Tylenol -) 650 mg PO Q4H PRN PRN Reason: FEVER Aspirin (Ecotrin -) 81 mg PO DAILY [facility] Last Admin: 05/02/18 09:18 Dose: 81 mg Bupropion HCl (Wellbutrin Xl -) 150 mg PO DAILY [facility] Last Admin: 05/02/18 09:23 Dose: 150 mg Glycerin (Glycerin Suppository Adult -) 1 each UT DAILY PRN PRN Reason: CONSTIPATION Last Admin: 05/02/18 11:07 Dose: 1 each Heparin Sodium (Porcine) (Heparin -) 5,000 unit SQ BID [facility] Last Admin: 05/02/18 09:20 Dose: 5,000 unit Hydralazine HCl (Apresoline -) 25 mg PO BID [facility] Last Admin: 05/02/18 09:19 Dose: 25 mg Piperacillin Sod/Tazobactam (Sod 3.375 gm/ Dextrose) 50 mls @ 100 mls/hr IVPB Q8H-IV [facility]; Protocol Last Admin: 05/02/18 19:17 Dose: Not Given Dextrose (D5w -) 1,000 mls @ 55 mls/hr IV ASDIR [facility] Insulin Aspart (Novolog Vial Sliding Scale -) 1 vial SQ ACHS [facility]; Protocol Last Admin: 05/02/18 17:23 Dose: Not Given Lactulose (Cephulac (Oral Use)) 30 gm PO BID [facility] Last Admin: 05/02/18 10:00 Dose: Not Given Lorazepam (Ativan Injection -) 0.5 mg IVPUSH Q8H PRN PRN Reason: ANXIETY Last Admin: 05/02/18 09:51 Dose: 0.5 mg Nifedipine (Procardia Xl -) 60 mg PO DAILY [facility] Last Admin: 05/02/18 09:22 Dose: 60 mg Pantoprazole Sodium (Protonix Iv) 40 mg IVPB DAILY [facility] Last Admin: 05/02/18 09:23 Dose: 40 mg Pramipexole Dihydrochloride (Mirapex -) 1 mg PO HS [facility] Last Admin: 05/01/18 21:19 Dose: 1 mg Rosuvastatin Calcium (Crestor -) 10 mg PO HS [facility] Last Admin: 05/01/18 21:18 Dose: 10 mg Valproate Sodium (Depacon Injection -) 500 mg IVPB BID [facility] Last Admin: 05/02/18 11:07 Dose: 500 mg - Objective Vital Signs: Vital Signs Temperature 102 F H 05/02/18 16:00 Pulse Rate 105 H 05/02/18 16:00 Respiratory Rate 20 05/02/18 16:00 Blood Pressure 157/76 05/02/18 16:00 O2 Sat by Pulse Oximetry (%) 96 05/02/18 09:00 Labs: CBC, BMP 05/02/18 06:20 05/02/18 06:20 <Madhu Ibanez - Last Filed: 05/02/18 19:33> Problem List - Problems (1) HLD (hyperlipidemia) Assessment/Plan: -cont with crestor 10mg qhs Code(s): E78.5 - HYPERLIPIDEMIA, UNSPECIFIED (2) Nausea and vomiting Assessment/Plan: -currently no nausea or vomiting reported -d/c NPO status and start on clear liquid diet Code(s): R11.2 - NAUSEA WITH VOMITING, UNSPECIFIED Qualifiers: Vomiting type: unspecified Vomiting Intractability: intractable Qualified Code(s): R11.2 - Nausea with vomiting, unspecified (3) Abdominal pain Assessment/Plan: -cont with ceftriaxone 1g IVPB daily and flagyl 500mg IVPB q8h -Abd/Pelvic CT scan show extensive diverticulitis coli mainly in sigmoid colon without evidence of acute diverticulitis -pain management Code(s): R10.9 - UNSPECIFIED ABDOMINAL PAIN Qualifiers: Abdominal location: unspecified location Qualified Code(s): R10.9 - Unspecified abdominal pain (4) Uncontrolled diabetes mellitus Assessment/Plan: -BGM ACHS, ISS -HgA1c 10.4 -endocrinology consult Code(s): E11.65 - TYPE 2 DIABETES MELLITUS WITH HYPERGLYCEMIA Qualifiers: Diabetes mellitus type: type 2 (5) Hypernatremia Assessment/Plan: -IVF discontinued -renal consult placed -will continue to monitor Na level -ICU consult placed Code(s): E87.0 - HYPEROSMOLALITY AND HYPERNATREMIA (6) Metabolic encephalopathy Assessment/Plan: -pending repeat BC and UC -ABG ordered -lactic acid level ordered STAT -tylenol PRN for fever >100F -vascular US ordered R/O DVT -monitor Na level -pulm consult -ID on board -ICU consult placed Code(s): G93.41 - METABOLIC ENCEPHALOPATHY (7) Myoclonic jerking Assessment/Plan: -Neurology on board -ICU consult placed -ativan 0.5mg IVP q6h PRN -EEG pending -started on Depakote 500mg IVPB BID -neuro checks q4h -fall precautions -Head CT scan reviewed and negative for acute intracranial hemorrhage, edema, midline shift, mass effect, or skull fracture Code(s): G25.3 - MYOCLONUS (8) PNA (pneumonia) Assessment/Plan: -ID consult -pulm consult -O2 via NC PRN for SOB -keep SpO2 >90% Code(s): J18.9 - PNEUMONIA, UNSPECIFIED ORGANISM (9) Constipation Assessment/Plan: -mineral oil enema STAT -glycerin supp ordered PRN daily -Lactulose 30gm PO BID Code(s): K59.00 - CONSTIPATION, UNSPECIFIED <Audrey Pastrana - Last Filed: 05/02/18 16:55> - Problems (1) Nausea and vomiting Code(s): R11.2 - NAUSEA WITH VOMITING, UNSPECIFIED Qualifiers: Vomiting type: unspecified Vomiting Intractability: intractable Qualified Code(s): R11.2 - Nausea with vomiting, unspecified (2) Abdominal pain Code(s): R10.9 - UNSPECIFIED ABDOMINAL PAIN Qualifiers: Abdominal location: unspecified location Qualified Code(s): R10.9 - Unspecified abdominal pain <Madhu Ibanez - Last Filed: 05/02/18 19:33> Assessment/Plan see problem list <Audrey Pastrana - Last Filed: 05/02/18 16:55>
[2018-05-02] MEDS: VALPROATE SODIUM 500 MG/5 ML VIAL IVPB SCH ×2 (11:07→22:59)
[2018-05-02] MEDS: MINERAL OIL ENEMA 133 ML ENEMA PR ONE (11:20)
[2018-05-02] MEDS ORDERED: INSULIN (NOVOLOG) ASPART 100 UNITS/ML 10ML VIAL ONE (11:24)
--- NOTE | 2018-05-02 13:57 | PN ---
Progress Note, Physician History of Present Illness: LETHARGIC BUT AROUSABLE NO COMPLAINTS OF PAIN BREATHING NON LABORED TEMP SPIKE NOTED CT A/P NO NEW ABDOMINAL PATH BUT + BIBASILAR LUNG CONSOLIDATIONS - Current Medication List Current Medications: Active Medications Acetaminophen (Tylenol -) 650 mg PO Q4H PRN PRN Reason: FEVER Aspirin (Ecotrin -) 81 mg PO DAILY [facility] Last Admin: 05/02/18 09:18 Dose: 81 mg Bupropion HCl (Wellbutrin Xl -) 150 mg PO DAILY [facility] Last Admin: 05/02/18 09:23 Dose: 150 mg Glycerin (Glycerin Suppository Adult -) 1 each SC DAILY PRN PRN Reason: CONSTIPATION Last Admin: 05/02/18 11:07 Dose: 1 each Heparin Sodium (Porcine) (Heparin -) 5,000 unit SQ BID [facility] Last Admin: 05/02/18 09:20 Dose: 5,000 unit Hydralazine HCl (Apresoline -) 25 mg PO BID [facility] Last Admin: 05/02/18 09:19 Dose: 25 mg Piperacillin Sod/Tazobactam (Sod 3.375 gm/ Dextrose) 50 mls @ 100 mls/hr IVPB Q8H-IV [facility]; Protocol Insulin Aspart (Novolog Vial Sliding Scale -) 1 vial SQ ACHS [facility]; Protocol Last Admin: 05/02/18 11:33 Dose: 2 units Lactulose (Cephulac (Oral Use)) 30 gm PO BID [facility] Last Admin: 05/02/18 11:26 Dose: 30 gm Lorazepam (Ativan Injection -) 0.5 mg IVPUSH Q8H PRN PRN Reason: ANXIETY Last Admin: 05/02/18 09:51 Dose: 0.5 mg Morphine Sulfate (Morphine Sulfate) 4 mg IVPUSH Q6H PRN PRN Reason: PAIN LEVEL 6-10 Last Admin: 05/02/18 05:49 Dose: 4 mg Nifedipine (Procardia Xl -) 60 mg PO DAILY [facility] Last Admin: 05/02/18 09:22 Dose: 60 mg Pantoprazole Sodium (Protonix Iv) 40 mg IVPB DAILY [facility] Last Admin: 05/02/18 09:23 Dose: 40 mg Pramipexole Dihydrochloride (Mirapex -) 1 mg PO HS [facility] Last Admin: 05/01/18 21:19 Dose: 1 mg Rosuvastatin Calcium (Crestor -) 10 mg PO HS [facility] Last Admin: 05/01/18 21:18 Dose: 10 mg Valproate Sodium (Depacon Injection -) 500 mg IVPB BID [facility] Last Admin: 05/02/18 11:07 Dose: 500 mg - Objective Vital Signs: Vital Signs Temperature 100.2 F H 05/02/18 06:43 Pulse Rate 95 H 05/02/18 06:43 Respiratory Rate 20 05/02/18 06:43 Blood Pressure 149/97 05/02/18 06:43 O2 Sat by Pulse Oximetry (%) 98 05/01/18 21:00 Constitutional: Yes: No Distress Cardiovascular: Yes: Regular Rate and Rhythm, S1, S2 Respiratory: Yes: Diminished Gastrointestinal: Yes: Normal Bowel Sounds, Soft. No: Tenderness Labs: CBC, BMP 05/02/18 06:20 05/02/18 06:20 Assessment/Plan ABDOMINAL PAIN SYNDROME BIBASILAR PNEUMONIA ? HCAP R/O TOXIC METABOLIC ENCEPHALOPATHY ? DRUG EFFECT ( FLAGYL) AWAIT C/S CHECK [facility] AG D/C CEFTRIAXONE/ FLAGYL EMPIRIC ZOSYN DISCUSSED WITH FAMILY AT BEDSIDE
--- NOTE | 2018-05-02 14:42 | PN ---
Progress Note (short form) - Note Progress Note: PULMONARY CONSULTATION DICTATED 05/02/18 IMP BILATERAL PLEURAL EFFUSIONS/CONSOLIDATIONS ? CHF,? PNEUMONIA,?ATELECTASIS ABD PAIN ? COLITIS DM HTN DEMENTIA PARKINSONS HLD OSTEOARTHRITIS JASPER IMPROVED MYOCLONIC JERKS ?TOXIC-METABOLIC ENCEPHALOPATHY HYPERNATREMIA PLAN ABX PER ID O2 NEEDED CHEST CT ECHO BNP CULTURES MONITOR LYTES,NA,CBC LEGIONELLA URINARY ANTIGEN ABG DR CAMPA Problem List - Problems (1) JASPER (acute kidney injury) Code(s): N17.9 - ACUTE KIDNEY FAILURE, UNSPECIFIED (2) Arthritis Code(s): M19.90 - UNSPECIFIED OSTEOARTHRITIS, UNSPECIFIED SITE (3) Dementia Code(s): F03.90 - UNSPECIFIED DEMENTIA WITHOUT BEHAVIORAL DISTURBANCE (4) HLD (hyperlipidemia) Code(s): E78.5 - HYPERLIPIDEMIA, UNSPECIFIED (5) 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 (6) PNA (pneumonia) Code(s): J18.9 - PNEUMONIA, UNSPECIFIED ORGANISM (7) Abdominal pain Code(s): R10.9 - UNSPECIFIED ABDOMINAL PAIN Qualifiers: Abdominal location: unspecified location Qualified Code(s): R10.9 - Unspecified abdominal pain (8) Anemia Code(s): D64.9 - ANEMIA, UNSPECIFIED (9) Diabetes mellitus with neuropathy Code(s): E11.40 - TYPE 2 DIABETES MELLITUS WITH DIABETIC NEUROPATHY, UNSP (10) Gastroparesis due to DM Code(s): E11.43 - TYPE 2 DIABETES W DIABETIC AUTONOMIC (POLY)NEUROPATHY; K31.84 - GASTROPARESIS (11) HTN (hypertension) Code(s): I10 - ESSENTIAL (PRIMARY) HYPERTENSION (12) Leukocytosis Code(s): D72.829 - ELEVATED WHITE BLOOD CELL COUNT, UNSPECIFIED (13) Parkinson disease Code(s): G20 - PARKINSON'S DISEASE
[2018-05-02 15:17] LABS: N-TERMINAL BNP 5223.1 pg/ml (5-450)
[2018-05-02] MEDS ORDERED: PIPERACILLIN/TAZOBACTAM 3.375 GM VIAL IVPB ONE (15:22)
--- NOTE | 2018-05-02 15:24 | CONSULT ---
Consult Consult Specialty:: Nephrology Reason for Consultation:: hypernatremia - History of Present Illness Chief Complaint: initially presented with abdominal pain History of Present Illness: Pt is a 78 year old female with pmhx of HTN, HLD, DM, diverticulitis, and urinary incontinence who initially presented with abdominal pain and decreased PO intake. She was found to have fecal impaction. I was called to evaluate her for hypernatremia. She has been on saline. Pt is lethargic and unable to give history. Her daughter is at bedside who assisted. Pt also developed a fever. 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, Peripheral Neuropathy, Parkinson's Cardio/Vascular: Yes: HTN, Hyperlipdemia Gastrointestinal: Yes: Diverticulosis Psych: Yes: Anxiety Musculoskeletal: Yes: Osteoarthritis Endocrine: Yes: Diabetes Mellitus - Past Surgical History Past Surgical History: Yes: Appendectomy, Cholecystectomy, - Alcohol/Substance Use Hx Alcohol Use: No - Smoking History Smoking history: Smoker current status UNK Have you smoked in the past 12 months: No Aproximately how many cigarettes per day: 0 - Social History Usual Living Arrangement: With Significant Other 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 History of Recent Travel: No Home Medications - Allergies Allergies/Adverse Reactions: Allergies Allergy/AdvReac Type Severity Reaction Status Date / Time valsartan [From Diovan] Allergy Mild Verified 04/27/18 18:41 - Home Medications Home Medications: Ambulatory Orders Aspirin [ASA -] 81 mg PO DAILY 09/09/15 Olmesartan/Hydrochlorothiazide [Benicar Hct 40-12.5MG Tab -] 1 tab PO DAILY Multivitamins [Multivit ([facility])] 1 tab PO DAILY tab 08/19/17 Donepezil HCl 10 mg PO DAILY 02/01/18 Metoclopramide HCl 5 mg PO DAILY 02/01/18 Pramipexole Di-HCl [Pramipexole Dihydrochloride] 1 mg PO HS 02/01/18 Rosuvastatin [Crestor -] 10 mg PO HS 02/01/18 Insulin Glargine,Hum.rec.anlog [Lantus (10mL VIAL) -] 34 units SQ ACBK 02/02/18 Bupropion HCl [Wellbutrin Xl -] 150 mg PO DAILY #30 tab.sr.24h 02/09/18 Divalproex [Depakote -] 250 mg PO DAILY tablet.ec 02/09/18 Nifedipine ER [Procardia XL -] 60 mg PO DAILY #30 tab.er.24 02/09/18 Pantoprazole Sodium [Protonix -] 40 mg PO DAILY #30 tablet.ec 02/09/18 Polyethylene Glycol 3350 [Miralax 119 gm Btl -] 17 gm PO BID bottle 02/09/18 Divalproex [Depakote -] 250 mg PO DAILY #30 tablet.ec 04/24/18 Lipase/Protease/Amylase [Elaine Sweeney 36,000 Units Capsule] 1 cap PO TIDCM #90 capsule. 04/24/18 Rifaximin [Xifaxan -] 550 mg PO TID #90 tablet 04/24/18 clonazePAM [Klonopin -] 0.25 mg PO Q12H PRN #60 tablet MDD 2 04/24/18 hydrALAZINE HCL [Apresoline -] 25 mg PO BID #60 tablet 04/24/18 Family Disease History - Family Disease History Family History: Unable to Obtain Review of Systems Unable to obtain ROS, reason: pt lethargic Physical Exam Vital Signs: Vital Signs Temperature 101.1 F H 05/02/18 10:00 Pulse Rate 100 H 05/02/18 10:00 Respiratory Rate 19 05/02/18 10:00 Blood Pressure 129/66 05/02/18 10:00 O2 Sat by Pulse Oximetry (%) 96 05/02/18 09:00 Constitutional: Yes: Calm Eyes: Yes: Conjunctiva Clear Cardiovascular: Yes: S1, S2 Respiratory: Yes: CTA Bilaterally Gastrointestinal: Yes: Normal Bowel Sounds, Soft Renal/: Yes: Schultz Present Musculoskeletal: Yes: Muscle Weakness Edema: No Neurological: Yes: Lethargy Labs: CBC, BMP 05/02/18 06:20 05/02/18 06:20 Laboratory Tests 05/01/18 05/02/18 05/02/18 16:00 06:20 06:20 WBC 8.1 Hgb 9.5 L Sodium 153 H Potassium 4.7 Chloride 120 H Carbon Dioxide 27 Anion Gap 6 L B-Natriuretic Peptide 5223.1 H Urine Protein 3+ H Urine Blood 1+ H Imaging - Results Chest X-ray: Report Reviewed Cat Scan: Report Reviewed Problem List - Problems (1) Hypernatremia Code(s): E87.0 - HYPEROSMOLALITY AND HYPERNATREMIA Assessment/Plan Current Medications Generic Name Dose Route Start Last Admin Trade Name Freq PRN Reason Stop Dose Admin Acetaminophen 650 mg 05/02/18 10:04 Tylenol - PO Q4H PRN FEVER Aspirin 81 mg 04/28/18 10:00 05/02/18 09:18 Ecotrin - PO 81 mg DAILY [facility] Administration Bupropion HCl 150 mg 04/28/18 10:00 05/02/18 09:23 Wellbutrin Xl - PO 150 mg DAILY [facility] Administration Glycerin 1 each 05/02/18 09:37 05/02/18 11:07 Glycerin Suppository Adult - OR 1 each DAILY PRN Administration CONSTIPATION Heparin Sodium (Porcine) 5,000 unit 04/28/18 10:00 05/02/18 09:20 Heparin - SQ 5,000 unit BID [facility] Administration Hydralazine HCl 25 mg 04/28/18 10:00 05/02/18 09:19 Apresoline - PO 25 mg BID [facility] Administration Piperacillin Sod/Tazobactam 50 mls @ 100 mls/hr 05/02/18 13:00 Sod 3.375 gm/ Dextrose IVPB Q8H-IV [facility] Protocol Insulin Aspart 1 vial 04/28/18 07:00 05/02/18 11:33 Novolog Vial Sliding Scale - SQ 2 units ACHS [facility] Administration Protocol Lactulose 30 gm 05/02/18 10:00 05/02/18 11:26 Cephulac (Oral Use) PO 30 gm BID [facility] Administration Lorazepam 0.5 mg 05/02/18 08:20 05/02/18 09:51 Ativan Injection - IVPUSH 0.5 mg Q8H PRN Administration ANXIETY Nifedipine 60 mg 04/28/18 10:00 05/02/18 09:22 Procardia Xl - PO 60 mg DAILY [facility] Administration Pantoprazole Sodium 40 mg 04/28/18 10:00 05/02/18 09:23 Protonix Iv IVPB 40 mg DAILY [facility] Administration Pramipexole Dihydrochloride 1 mg 04/28/18 22:00 05/01/18 21:19 Mirapex - PO 1 mg HS [facility] Administration Rosuvastatin Calcium 10 mg 04/28/18 22:00 05/01/18 21:18 Crestor - PO 10 mg HS [facility] Administration Valproate Sodium 500 mg 05/02/18 10:00 05/02/18 11:07 Depacon Injection - IVPB 500 mg BID [facility] Administration Impression 1. hypernatremia 2. fecal impaction 3. HLD 4. fever 5. HTN 6. DM Plan - d/c normal saline - get echo - pt has a total free water deficit of about 2.6 liters. 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
[2018-05-02] MEDS: PIPERACILLIN/TAZOB 3.375 GM 3.375 GM in DEXTROSE 5%-WATER - 50 ML IVPB SCH ×2 (15:43→19:17)
[2018-05-02] MEDS ORDERED: DEXTROSE 5%-WATER - 1,000 ML IV SCH ×2 (15:45)
[2018-05-02 16:24] LABS: ARTERIAL BLD GAS O2 SATURATION 93.8 % (90-98.9); ARTERIAL BLOOD GAS BASE EXCESS 2.3 meq/l (-2-2); ARTERIAL BLOOD GAS PCO2 41.8 mmHg (35-45); ARTERIAL BLOOD GAS PO2 68.8 mmHg (70-100); ARTERIAL BLOOD GAS pH 7.42 (7.35-7.45)
[2018-05-02 16:48] LABS: ALLENS TEST POSITIVE
--- NOTE | 2018-05-02 18:57 | CONS ---
PHYSICAL MEDICINE REHABILITATION CONSULTATION DATE OF CONSULTATION: 05/02/2018 HISTORY OF PRESENT ILLNESS: The patient is a 78-year-old woman with past medical history of dementia, peripheral neuropathy, and Parkinson disease, who was admitted on April 28, 2018, with abdominal pain as well as chills, nausea, vomiting. On admission, patient had chemistry which showed elevated BUN of 21 to creatinine 1.6; low sodium, 133; and low chloride of 89. CBC on April 28 showed elevated WBC of 13.5, hemoglobin 9.0, platelet count 463. Potassium on April 28 was low at 3.3, BUN 25 to creatinine 1.5, both elevated. Sodium normalized to 141. Patient was started on IV fluid and apparently recently diagnosed with a urinary tract infection. She was treated, but eventually had a CT of the abdomen and pelvis which showed bibasilar consolidation, atelectasis, moderate bilateral pleural effusion, suspicious for pneumonia. There were other findings which were reviewed. On May 02, patient had an elevated sodium of 153, chloride 120, potassium 4.7, BUN improved to 17, creatinine 1.2. Her WBC improved to 8.1, hemoglobin stable at 9.5, platelet count 448. Patient was noted to have sudden jerky motions and was seen by Neurology who diagnosed her with myoclonic jerks and increased her Depakote. An EEG was suggested, and she was also diagnosed with metabolic encephalopathy. I was asked to see the patient in regards to a rehabilitation program. Her family is seen at the bedside. She did have a CT of the head on May 01, which was degraded by motion artifact, but no acute intracranial pathology. Chest x-ray showed cardiomegaly and congestive changes. Per the family, prior to about 2 weeks ago, she was ambulatory with a walker or a straight cane. She has an aide a few hours a day. She was brought prepared meals, but she could heat them up, but currently, she is completely out of it and not really responsive. The family did not feel that she would be a candidate for rehab in her current state and were worried about possible consequences. Patient herself opens her eyes, but does not answer any questions or respond appropriately. PAST MEDICAL AND SURGICAL HISTORY: As above, hypertension, hyperlipidemia, diverticulosis, anxiety, osteoarthritis, diabetes, peripheral neuropathy, Parkinson disease, dementia, appendectomy, cholecystectomy, . SOCIAL HISTORY: Lives alone; again, has an aide; lives in an apartment. She has a family member who lives in the same building and has an aide 2-1/2 hours a day. Per the family, it was supposed to be increased to 8 hours a day. CURRENT FUNCTION: She is totally dependent. REVIEW OF SYSTEMS: Impossible due to patient's mental status. PHYSICAL EXAMINATION: Patient is lying in bed. Her eyes are closed. With passive range, she does open her eyes and track slightly, but does not respond to any verbal cues. She has masked facies, but her extraocular muscles appear intact. She blinks to threat. She has good range of motion throughout the upper and lower extremities and withdraws to painful stimulus. She has symmetric reflexes and will spontaneously move all extremities; however, unable to really test these extremities. She has no skin breakdown. OVERALL IMPRESSION: 1. Severe deficits in mobility and activities of daily living. 2. Metabolic encephalopathy. 3. Possible myoclonic jerks. 4. Electrolyte abnormalities, currently with hypernatremia. 5. Status post acute kidney injury. 6. Anemia. 7. Possible infection, either urinary tract infection or pneumonia. 8. Dementia. 9. History of diabetes and peripheral neuropathy. 10. History of Parkinson disease. PLAN/SUGGESTION: 1. Patient is not appropriately currently for physical therapy; will hold. 2. Discussed with family daily range of motion or strengthening exercises once appropriate. 3. Neurologic followup. 4. Medical followup. 5. DVT prophylaxis. Continue subcutaneous heparin 5000 units b.i.d. 6. Skin precautions. 7. Monitor bowels for constipation. 8. Will follow up over the next few days and order physical therapy when appropriate. Thank you for this referral. BEAR SANCHEZ M.D. BART/[id number]
--- NOTE | 2018-05-02 19:29 | CONS ---
DATE OF CONSULTATION: 05/02/2018 PULMONARY CONSULTATION REFERRING PHYSICIAN: Ro Espana M.D. INFORMANT: History obtained from the chart as well as from patient's daughter. HISTORY OF PRESENT ILLNESS: The patient is a 78-year-old female with a past medical history of diabetes, hypertension, hyperlipidemia, Parkinson's dementia, peripheral neuropathy, osteoarthritis, was admitted to [facility] on April 28 with complaint of abdominal pain. Patient also complains of nausea, vomiting, and decreased p.o. intake. On admission, the patient has CT scan of the abdomen and pelvis which revealed fecal impaction. Hospital course was complicated by continued abdominal pain. She was also evaluated by GI. This hospitalization was significant for she had elevated white count and low-grade temperature. She had CT of the abdomen again which showed bilateral pleural effusion, compressive atelectasis, possible basal consolidation. She was evaluated by ID, infectious disease, and placed on broad-spectrum antibiotics. She is a nonsmoker. There is no history of occupational exposure to chemicals or fumes. According to the patient's daughter, the patient was able to ambulate well without any difficulty breathing. There is no history of chronic cough, hemoptysis. There is a history of pneumonia 15 years ago. There is no history of tuberculosis. Hospitalization also noted significant for yesterday she started developing myoclonic jerk. She was evaluated by neurology who felt this was likely secondary to toxic metabolic encephalopathy. PAST MEDICAL HISTORY: Again includes hypertension, diabetes, hyperlipidemia, Parkinson's dementia, peripheral neuropathy, osteoarthritis. SOCIAL HISTORY: Born in [facility]. Moved to [facility] at the age of 20. No occupational exposures. No tobacco. CURRENT MEDICATIONS: Include lactulose, Tylenol, piperacillin, heparin subcutaneous, valproate, Wellbutrin, glycerine suppositories, Ativan, Procardia, Apresoline, meropex, Crestor, NovoLog, Ecotrinand Protonix IV. PHYSICAL EXAMINATION: GENERAL: The patient is a well-developed, well-nourished awake nonverbal, in no acute respiratory distress. VITAL SIGNS: She is currently afebrile with temperature 101.1, respiratory rate 19, blood pressure 129/66, O2 saturation is 96% on room air. HEENT: Normocephalic, atraumatic. NECK: Supple. HEART: Regular S1, S2. CHEST: Bilateral crackles. ABDOMEN: Soft, bowel sounds positive. EXTREMITIES: No cyanosis, edema. LABORATORY: WBC 8.1, hemoglobin 9.5, hematocrit 27.9, platelet count 448,000. The differential with 14 lymphocytes, 68 polys, 14 monocytes. ESR is 57. Venous blood gas: pH 7.40, pCO2 of 48, and pO2 of 49. BUN is 17, creatinine 1.2. Chest x- ray: Cardiomegaly with congestion bilaterally. CT of the abdomen, pelvis on May 01, again bibasilar consolidation, atelectasis, and bilateral pleural effusion suspicious for pneumonia, extensive diverticulosis, without evidence of acute diverticulitis. There is also non-distention, suggesting interval thickening of the distal sigmoid colon, cannot rule out colitis. IMPRESSION: 1. Bilateral pleural consolidations, effusions. Questionable congestive heart failure. Possible pneumonia. 2. Abdominal pain. Possible colitis. 3. Myoclonic jerk likely secondary to toxic metabolic encephalopathy. 4. Diabetes. 5. Dementia. 6. Parkinson. 7. Hyperlipidemia. 8. Abdominal pain. PLAN: Antibiotics as per Infectious Disease. Supplemental O2 as needed. CT scan of the chest. Obtain cultures. Legionella antigens. Obtain echo, BMP, monitor electrolytes, cultures, CBC, also monitor sodium level. JONNY CAMPA M.D. FROILAN/[id number] MTDD
--- NOTE | 2018-05-02 19:42 | PN ---
GI Progress Note Subjective: spoke to her daughter and son in law MARTINEZ at length , we reviewed the ct results which showed diverticulosis, no fecal impaction, also of note is bilateral pleural effusion and pulmonary infiltrate. She was noted to be more lethargic but arousable to verbal stimuli to name and time of day, attention span is poor - Objective Vital Signs: Vital Signs Temperature 102 F H 05/02/18 16:00 Pulse Rate 105 H 05/02/18 16:00 Respiratory Rate 20 05/02/18 16:00 Blood Pressure 157/76 05/02/18 16:00 O2 Sat by Pulse Oximetry (%) 96 05/02/18 09:00 Constitutional: Well Nourished Eyes: Yes: Conjunctiva Clear HENT: Yes: Atraumatic Neck: Yes: Supple ...Palpate: Yes: Soft. No: Firm/Rigid, Guarding, Hepatomegaly, Mass, Pulsatile Mass, Splenomegaly, Tenderness Labs: CBC, BMP 05/02/18 06:20 05/02/18 06:20 Problem List - Problems (1) Nausea and vomiting Assessment/Plan: R>avoid zofran and Reglan Code(s): R11.2 - NAUSEA WITH VOMITING, UNSPECIFIED Qualifiers: Vomiting type: unspecified Vomiting Intractability: intractable Qualified Code(s): R11.2 - Nausea with vomiting, unspecified (2) Abdominal pain Assessment/Plan: --resolved Code(s): R10.9 - UNSPECIFIED ABDOMINAL PAIN Qualifiers: Abdominal location: unspecified location Qualified Code(s): R10.9 - Unspecified abdominal pain (3) Metabolic syndrome Assessment/Plan: secondary to sepsis and e;ectro;yte imbalance R> keep NPO high risk for aspiration avoid pain meds and sedatives Actominophen d/w family at length patients clinical condition and managment. The next 48 hours is critical Code(s): E88.81 - METABOLIC SYNDROME (4) Metabolic encephalopathy Code(s): G93.41 - METABOLIC ENCEPHALOPATHY
[2018-05-02] MEDS: ROSUVASTATIN CA 10 MG TABLET (FP) PO SCH (22:31)
[2018-05-02] MEDS: PRAMIPEXOLE DIHYDROCHLORIDE 1 MG TABLET PO SCH (22:59)
--- NOTE | 2018-05-03 01:07 | PN ---
Progress Note (short form) - Note Progress Note: weak and lethargic poor intake bs low Current Active Problems JASPER (acute kidney injury) (Acute) Arthritis (Acute) Dementia (Acute) HLD (hyperlipidemia) (Acute) Hypernatremia (Acute) Hypokalemia (Acute) Metabolic encephalopathy (Acute) Metabolic encephalopathy (Acute) Metabolic syndrome (Acute) Myoclonic jerking (Acute) Nausea and vomiting (Acute) PNA (pneumonia) (Acute) Parkinson disease (Acute) Abnormal Lab Results 05/02/18 05/02/18 05/02/18 06:20 06:20 16:00 RBC 3.30 L Hgb 9.5 L Hct 27.9 L Plt Count 448 H Monocytes % 14.4 H ABG pO2 at Pt Temp 68.8 L ABG HCO3 26.5 H ABG O2 Content 11.3 L ABG Base Excess 2.3 H Sodium 153 H Chloride 120 H Anion Gap 6 L Random Glucose 135 H Calcium 8.1 L Alkaline Phosphatase 152 H B-Natriuretic Peptide 5223.1 H Total Protein 5.3 L Albumin 2.2 L plan: continue bgm with coverage ck [place] level Problem List - Problems (1) JASPER (acute kidney injury) Code(s): N17.9 - ACUTE KIDNEY FAILURE, UNSPECIFIED (2) Arthritis Code(s): M19.90 - UNSPECIFIED OSTEOARTHRITIS, UNSPECIFIED SITE (3) Dementia Code(s): F03.90 - UNSPECIFIED DEMENTIA WITHOUT BEHAVIORAL DISTURBANCE (4) HLD (hyperlipidemia) Code(s): E78.5 - HYPERLIPIDEMIA, UNSPECIFIED (5) Abdominal pain Code(s): R10.9 - UNSPECIFIED ABDOMINAL PAIN Qualifiers: Abdominal location: unspecified location Qualified Code(s): R10.9 - Unspecified abdominal pain (6) Anemia Code(s): D64.9 - ANEMIA, UNSPECIFIED
[2018-05-03] MEDS ORDERED: DEXTROSE 5%-WATER - 50 ML IVPB ONE ×2 (01:11→10:57)
[2018-05-03] MEDS ORDERED: PIPERACILLIN/TAZOBACTAM 3.375 GM VIAL IVPB ONE ×2 (01:11→10:57)
[2018-05-03] MEDS: PIPERACILLIN/TAZOB 3.375 GM 3.375 GM in DEXTROSE 5%-WATER - 50 ML IVPB SCH ×3 (01:28→19:45)
[2018-05-03] MEDS: ACETAMINOPHEN 325 MG TABLET (FP) PO PRN ×4 (01:32→18:09)
[2018-05-03] MEDS: INSULIN SLIDING SCALE (NOVOLOG) 1 VIAL SQ SCH ×4 (06:14→21:31)
[2018-05-03 06:23] LABS: HEMOGLOBIN 9.3 GM/dL (10.7-15.3); MCH 28.1 pg (25.7-33.7); MCHC 33.1 g/dl (32.0-36.0); MEAN CELL VOLUME 84.9 fl (80-96); MEAN PLT VOLUME 8.5 fl (7.5-11.1); PLATELET COUNT 434 K/MM3 (134-434); RDW 15.7 % (11.6-15.6); WHITE BLOOD COUNT 14.5 K/mm3 (4.0-10.0)
[2018-05-03 09:01] LABS: ALBUMIN 2.2 g/dl (3.4-5.0); ALK PHOS 150 U/L (45-117); ANION GAP 6 MMOL/L (8-16); BILIRUBIN,TOTAL 0.3 mg/dL (0.2-1); CALCIUM 8.5 mg/dL (8.5-10.1); CHLORIDE 123 mmol/L (98-107); CO2 28 mmol/L (21-32); CREATININE 1.5 mg/dL (0.55-1.3); GLUCOSE,RANDOM 128 mg/dL (74-106); POTASSIUM 4.5 mmol/L (3.5-5.1); SGPT/ALT 26 U/L (13-61); SODIUM 156 mmol/L (136-145); TOT PROT 5.2 g/dl (6.4-8.2)
[2018-05-03] MEDS ORDERED: DEXTROSE 5%-WATER - 1,000 ML IV SCH ×2 (09:06→12:19)
[2018-05-03] MEDS: ASPIRIN COATED 81 MG TABLET.EC PO SCH (09:20)
--- NOTE | 2018-05-03 09:38 | PN ---
Progress Note, Physician - Current Medication List Current Medications: Active Medications Acetaminophen (Tylenol -) 650 mg PO Q4H PRN PRN Reason: FEVER Last Admin: 05/03/18 06:40 Dose: 650 mg Aspirin (Ecotrin -) 81 mg PO DAILY [facility] Last Admin: 05/02/18 09:18 Dose: 81 mg Bupropion HCl (Wellbutrin Xl -) 150 mg PO DAILY [facility] Last Admin: 05/02/18 09:23 Dose: 150 mg Heparin Sodium (Porcine) (Heparin -) 5,000 unit SQ BID [facility] Last Admin: 05/02/18 22:31 Dose: 5,000 unit Hydralazine HCl (Apresoline -) 25 mg PO BID [facility] Last Admin: 05/02/18 22:31 Dose: 25 mg Piperacillin Sod/Tazobactam (Sod 3.375 gm/ Dextrose) 50 mls @ 100 mls/hr IVPB Q8H-IV [facility]; Protocol Last Admin: 05/03/18 01:28 Dose: 100 mls/hr Dextrose (D5w -) 1,000 mls @ 100 mls/hr IV ASDIR [facility] Insulin Aspart (Novolog Vial Sliding Scale -) 1 vial SQ ACHS [facility]; Protocol Last Admin: 05/03/18 06:14 Dose: Not Given Nifedipine (Procardia Xl -) 60 mg PO DAILY [facility] Last Admin: 05/02/18 09:22 Dose: 60 mg Pantoprazole Sodium (Protonix Iv) 40 mg IVPB DAILY [facility] Last Admin: 05/02/18 09:23 Dose: 40 mg Pramipexole Dihydrochloride (Mirapex -) 1 mg PO HS [facility] Last Admin: 05/02/18 22:59 Dose: 1 mg Rosuvastatin Calcium (Crestor -) 10 mg PO HS [facility] Last Admin: 05/02/18 22:31 Dose: 10 mg Valproate Sodium (Depacon Injection -) 500 mg IVPB BID [facility] Last Admin: 05/02/18 22:59 Dose: 500 mg - Objective Vital Signs: Vital Signs Temperature 100.1 F H 05/03/18 06:00 Pulse Rate 91 H 05/03/18 01:44 Respiratory Rate 89 H 05/03/18 06:00 Blood Pressure 184/83 H 05/03/18 06:00 O2 Sat by Pulse Oximetry (%) 97 05/02/18 20:57 Labs: CBC, BMP 05/03/18 06:00 05/03/18 06:00 Problem List - Problems (1) Leukocytosis Assessment/Plan: -unknown etiology id consul follow cultures ct scan Code(s): D72.829 - ELEVATED WHITE BLOOD CELL COUNT, UNSPECIFIED (2) Abdominal pain Assessment/Plan: -pt without tenderness +wbc id consult gi and surgery on case ct ordered by dr mendoza needs iv access--unable to obtain larger than 22--dr charles notified surgical follow up for access -currently no nausea or vomiting reported -d/c NPO status and start on clear liquid diet -cont with ceftriaxone 1g IVPB daily and flagyl 500mg IVPB q8h -Abd/Pelvic CT scan noted Code(s): R10.9 - UNSPECIFIED ABDOMINAL PAIN Qualifiers: Abdominal location: unspecified location Qualified Code(s): R10.9 - Unspecified abdominal pain (3) HLD (hyperlipidemia) Code(s): E78.5 - HYPERLIPIDEMIA, UNSPECIFIED (4) Diabetes Assessment/Plan: -BGM ACHS, ISS -HgA1c 10.4 -endocrinology consult - Code(s): E11.9 - TYPE 2 DIABETES MELLITUS WITHOUT COMPLICATIONS Qualifiers: Diabetes mellitus type: type 2 (5) Hypernatremia Assessment/Plan: IVF discontinued -renal consult placed -will continue to monitor Na level -telemtry Code(s): E87.0 - HYPEROSMOLALITY AND HYPERNATREMIA (6) Myoclonic jerking Assessment/Plan: -Neurology on board -ICU consult placed -ativan 0.5mg IVP q6h PRN -EEG pending -started on Depakote 500mg IVPB BID -neuro checks q4h -fall precautions -Head CT scan reviewed and negative for acute intracranial hemorrhage, edema, midline shift, mass effect, or skull fracture Code(s): G25.3 - MYOCLONUS (7) PNA (pneumonia) Assessment/Plan: -ID consult -pulm consult -O2 via NC PRN for SOB -keep SpO2 >90% -ct chest -oob Code(s): J18.9 - PNEUMONIA, UNSPECIFIED ORGANISM (8) Metabolic encephalopathy Assessment/Plan: -pending repeat BC and UC -ABG -lactic acid level -tylenol PRN for fever >100F -vascular US ordered R/O DVT -monitor Na level -pulm consult -ID on board Laboratory Tests 04/30/18 05/02/18 05/02/18 14:35 11:25 16:00 ESR 57 H ABG pH 7.42 ABG HCO3 26.5 H ABG O2 Sat (Measured) 93.8 Lactic Acid 1.0 Code(s): G93.41 - METABOLIC ENCEPHALOPATHY (9) Constipation Assessment/Plan: -given mineral oil enema -glycerin supp ordered PRN daily -Lactulose 30gm PO BID Code(s): K59.00 - CONSTIPATION, UNSPECIFIED
[2018-05-03] MEDS: hydrALAZINE HCL 25 MG TABLET (FP) PO SCH ×2 (10:55→21:31)
[2018-05-03] MEDS: PANTOPRAZOLE SODIUM 40 MG VIAL IVPB SCH (10:55)
[2018-05-03] MEDS: HEPARIN NA (PORCINE) 5,000 UNITS/ML 1ML VIAL SQ SCH ×2 (10:55→21:32)
[2018-05-03] MEDS: NIFEdipine E.R 60 MG TABLET (UD) PO SCH (10:55)
[2018-05-03] MEDS ORDERED: PT OWN MED DRAWER 7, Y5N ONE ×3 (10:57→21:16)
[2018-05-03] MEDS: VALPROATE SODIUM 500 MG/5 ML VIAL IVPB SCH ×3 (11:00→21:32)
--- NOTE | 2018-05-03 11:57 | ECHO ---
Name: GIA NEWMAN Exam:Adult Echocardiogram Study Date: 05/03/2018 08:03 AM Age: 78 yrs Reason For Study: LV Function Height: 64 in Weight: 138 lb BSA: 1.7 m2 MMode/2D Measurements & Calculations IVSd: 1.3 cm Ao root diam: 2.7 cm LVIDd: 3.7 cm LA dimension: 3.1 cm LVIDs: 2.2 cm LVPWd: 1.1 cm EDV(Teich): 59.7 ml LAV (MOD-bp): 59.7 ml ESV(Teich): 17.1 ml Doppler Measurements & Calculations MV E max madi: 111.0 cm/sec MV A max madi: 101.4 cm/sec MV dec slope: 955.7 cm/sec2 MV E/A: 1.1 Med Peak E' Madi: 3.6 cm/sec Med E/e': 30.9 Lat Peak E' Madi: 10.0 cm/sec Lat E/e': 11.1 Procedure A two-dimensional transthoracic echocardiogram with color flow and Doppler was performed. Left Ventricle The left ventricle is normal in size. Left ventricular systolic function is normal. Ejection Fraction = 70%. Left Ventricular Filling pattern is normal for age. Right Ventricle The right ventricle is grossly normal size. The right ventricular systolic function is normal. Atria The left atrial size is normal. Right atrial size is normal. Mitral Valve The mitral valve is normal. There is mild mitral annular calcification. There is no mitral regurgitat ion noted. Tricuspid Valve The tricuspid valve is normal. There is trace tricuspid regurgitation. Aortic Valve The aortic valve is normal in structure and function. No aortic regurgitation is present. Pulmonic Valve The pulmonic valve is not well visualized. The pulmonic valve is not well seen, but is grossly normal . There is no pulmonic valvular regurgitation. Great Vessels The aortic root is normal size. Pericardium/Pleura Trivial pericardial effusion not hemodynamically significant. Large left pleural effusion. Right pleu ral effusion present but not well visualized. Interpretation Summary Left ventricular systolic function is normal. Left Ventricular Filling pattern is normal for age. The right ventricular systolic function is normal. There is mild mitral annular calcification. There is trace tricuspid regurgitation. Trivial pericardial effusion not hemodynamically significant Large left pleural effusion. Right pleural effusion present but not well visualized. MD Tyler Kincaid 05/03/2018 11:57 AM
[2018-05-03 11:58] LABS: BLOOD UREA NITROGEN 21 mg/dL (7-18); SGOT/AST 24 U/L (15-37)
--- NOTE | 2018-05-03 11:59 | PN ---
Progress Note (short form) - Note Progress Note: 78 year old female history of IDDM, HTN,HLD,Anxiety, PD( on mirapex), Peripheral neuropathy, Dementia. Patient has come to hospital for Abdominal pain and fecal impaction.She is found to have intermittent whole body shaking . There has not been any new focal neurological symptoms, except she has been confused . Her initial ct had was unmremarkable. PMH Dementia, IDDM,HTN,HLD,PD,Divertoculosis, Osteoarthritis. She appears to be more alert and able to converse and follow command better today. NEUROLOGICAL Examination Alert oriented x 2 ( she says today is apr 2018 and told me her name and she told me she is in [place].), she is not able to engage in conversation eomi, pupils reactive, no face asymmetry moving all ext sensation is noraml reflex are generalized diminished Recurrent whole body jerky motion were noticed. ct head no acute findings Assessment/Plan 1.sudden abnormal jerky motions seems to be Myoclonic jerks, seems to be secondary to metabolic encphalopathy. ( hypernatremia, hyper glycemia , GI issues). Her mental status improved slightly and myoclonic jerks are less frequent EEG is pending Increase depakote to 500 mg iv tid. - Treat underlying metabolic derangement , Infection and constipation. 2. Cognitive difficulty seems to be due to metabolic encephalopathy and dementia. continue supportive care Thanking you so much Deion Florez MD
--- NOTE | 2018-05-03 12:18 | PN ---
Progress Note, Physician History of Present Illness: Pt seen and examined at bedside. She is awake and alert today. Her mental status is markedly improved. She is starting to eat and drink. Her daughter is at her bedside. - Current Medication List Current Medications: Active Medications Acetaminophen (Tylenol -) 650 mg PO Q4H PRN PRN Reason: FEVER Last Admin: 05/03/18 11:28 Dose: 650 mg Aspirin (Ecotrin -) 81 mg PO DAILY [facility] Last Admin: 05/02/18 09:18 Dose: 81 mg Bupropion HCl (Wellbutrin Xl -) 150 mg PO DAILY [facility] Last Admin: 05/02/18 09:23 Dose: 150 mg Heparin Sodium (Porcine) (Heparin -) 5,000 unit SQ BID [facility] Last Admin: 05/03/18 10:55 Dose: 5,000 unit Hydralazine HCl (Apresoline -) 25 mg PO BID [facility] Last Admin: 05/03/18 10:55 Dose: 25 mg Piperacillin Sod/Tazobactam (Sod 3.375 gm/ Dextrose) 50 mls @ 100 mls/hr IVPB Q8H-IV [facility]; Protocol Last Admin: 05/03/18 10:55 Dose: 100 mls/hr Dextrose (D5w -) 1,000 mls @ 100 mls/hr IV ASDIR [facility] Last Admin: 05/03/18 10:55 Dose: Not Given Insulin Aspart (Novolog Vial Sliding Scale -) 1 vial SQ ACHS [facility]; Protocol Last Admin: 05/03/18 06:14 Dose: Not Given Nifedipine (Procardia Xl -) 60 mg PO DAILY [facility] Last Admin: 05/03/18 10:55 Dose: 60 mg Pantoprazole Sodium (Protonix Iv) 40 mg IVPB DAILY [facility] Last Admin: 05/03/18 10:55 Dose: 40 mg Pramipexole Dihydrochloride (Mirapex -) 1 mg PO HS [facility] Last Admin: 05/02/18 22:59 Dose: 1 mg Rosuvastatin Calcium (Crestor -) 10 mg PO HS [facility] Last Admin: 05/02/18 22:31 Dose: 10 mg Valproate Sodium (Depacon Injection -) 500 mg IVPB TID [facility] - Objective Vital Signs: Vital Signs Temperature 100.1 F H 05/03/18 06:00 Pulse Rate 91 H 05/03/18 01:44 Respiratory Rate 89 H 05/03/18 06:00 Blood Pressure 184/83 H 05/03/18 06:00 O2 Sat by Pulse Oximetry (%) 97 05/02/18 20:57 Constitutional: Yes: Calm Eyes: Yes: Conjunctiva Clear HENT: Yes: Atraumatic Cardiovascular: Yes: S1, S2 Respiratory: Yes: On Nasal O2 Gastrointestinal: Yes: Soft Genitourinary: Yes: Incontinence Musculoskeletal: Yes: Muscle Weakness Edema: Yes Edema: LUE: 1+, RUE: 1+, LLE: Trace, RLE: Trace Neurological: Yes: Oriented Psychiatric: Yes: Oriented Labs: CBC, BMP 05/03/18 06:00 05/03/18 06:00 Problem List - Problems (1) Hypernatremia Code(s): E87.0 - HYPEROSMOLALITY AND HYPERNATREMIA Assessment/Plan Current Medications Generic Name Dose Route Start Last Admin Trade Name Freq PRN Reason Stop Dose Admin Acetaminophen 650 mg 05/02/18 10:04 05/03/18 11:28 Tylenol - PO 650 mg Q4H PRN Administration FEVER Aspirin 81 mg 04/28/18 10:00 05/02/18 09:18 Ecotrin - PO 81 mg DAILY [facility] Administration Bupropion HCl 150 mg 04/28/18 10:00 05/02/18 09:23 Wellbutrin Xl - PO 150 mg DAILY [facility] Administration Heparin Sodium (Porcine) 5,000 unit 04/28/18 10:00 05/03/18 10:55 Heparin - SQ 5,000 unit BID [facility] Administration Hydralazine HCl 25 mg 04/28/18 10:00 05/03/18 10:55 Apresoline - PO 25 mg BID [facility] Administration Piperacillin Sod/Tazobactam 50 mls @ 100 mls/hr 05/02/18 13:00 05/03/18 10:55 Sod 3.375 gm/ Dextrose IVPB 100 mls/hr Q8H-IV [facility] Administration Protocol Dextrose 1,000 mls @ 100 mls/hr 05/03/18 09:06 05/03/18 10:55 D5w - IV Not Given ASDIR [facility] Insulin Aspart 1 vial 04/28/18 07:00 05/03/18 06:14 Novolog Vial Sliding Scale - SQ Not Given ACHS [facility] Protocol Nifedipine 60 mg 04/28/18 10:00 05/03/18 10:55 Procardia Xl - PO 60 mg DAILY [facility] Administration Pantoprazole Sodium 40 mg 04/28/18 10:00 05/03/18 10:55 Protonix Iv IVPB 40 mg DAILY [facility] Administration Pramipexole Dihydrochloride 1 mg 04/28/18 22:00 05/02/18 22:59 Mirapex - PO 1 mg HS [facility] Administration Rosuvastatin Calcium 10 mg 04/28/18 22:00 05/02/18 22:31 Crestor - PO 10 mg HS [facility] Administration Valproate Sodium 500 mg 05/03/18 14:00 Depacon Injection - IVPB TID [facility] Impression 1. hypernatremia 2. fecal impaction 3. HLD 4. fever 5. HTN 6. DM Plan - cont to monitor sodium - pt is now awake, will have team submersible pilot her an extras liter of water to drink - decrease rate of d5w as she has edema - pt has been on normal saline for a while, will need time to mobilize salt - discussed with daughter - cont to monitor sodium levels - monitor volume status closely - repeat ua - check prt to cuprous chloride helper ratio
--- NOTE | 2018-05-03 12:38 | PN ---
Progress Note, Physician - Current Medication List Current Medications: Active Medications Acetaminophen (Tylenol -) 650 mg PO Q4H PRN PRN Reason: FEVER Last Admin: 05/03/18 11:28 Dose: 650 mg Aspirin (Ecotrin -) 81 mg PO DAILY [facility] Last Admin: 05/02/18 09:18 Dose: 81 mg Bupropion HCl (Wellbutrin Xl -) 150 mg PO DAILY [facility] Last Admin: 05/02/18 09:23 Dose: 150 mg Heparin Sodium (Porcine) (Heparin -) 5,000 unit SQ BID [facility] Last Admin: 05/03/18 10:55 Dose: 5,000 unit Hydralazine HCl (Apresoline -) 25 mg PO BID [facility] Last Admin: 05/03/18 10:55 Dose: 25 mg Piperacillin Sod/Tazobactam (Sod 3.375 gm/ Dextrose) 50 mls @ 100 mls/hr IVPB Q8H-IV [facility]; Protocol Last Admin: 05/03/18 10:55 Dose: 100 mls/hr Dextrose (D5w -) 1,000 mls @ 83 mls/hr IV ASDIR [facility] Insulin Aspart (Novolog Vial Sliding Scale -) 1 vial SQ ACHS [facility]; Protocol Last Admin: 05/03/18 06:14 Dose: Not Given Nifedipine (Procardia Xl -) 60 mg PO DAILY [facility] Last Admin: 05/03/18 10:55 Dose: 60 mg Pantoprazole Sodium (Protonix Iv) 40 mg IVPB DAILY [facility] Last Admin: 05/03/18 10:55 Dose: 40 mg Pramipexole Dihydrochloride (Mirapex -) 1 mg PO HS [facility] Last Admin: 05/02/18 22:59 Dose: 1 mg Rosuvastatin Calcium (Crestor -) 10 mg PO HS [facility] Last Admin: 05/02/18 22:31 Dose: 10 mg Valproate Sodium (Depacon Injection -) 500 mg IVPB TID [facility] - Objective Vital Signs: Vital Signs Temperature 100.1 F H 05/03/18 06:00 Pulse Rate 91 H 05/03/18 01:44 Respiratory Rate 89 H 05/03/18 06:00 Blood Pressure 184/83 H 05/03/18 06:00 O2 Sat by Pulse Oximetry (%) 97 05/02/18 20:57 Labs: CBC, BMP 05/03/18 06:00 05/03/18 06:00 Problem List - Problems (1) JASPER (acute kidney injury) Code(s): N17.9 - ACUTE KIDNEY FAILURE, UNSPECIFIED (2) Arthritis Code(s): M19.90 - UNSPECIFIED OSTEOARTHRITIS, UNSPECIFIED SITE (3) Dementia Code(s): F03.90 - UNSPECIFIED DEMENTIA WITHOUT BEHAVIORAL DISTURBANCE (4) HLD (hyperlipidemia) Code(s): E78.5 - HYPERLIPIDEMIA, UNSPECIFIED (5) 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 (6) PNA (pneumonia) Code(s): J18.9 - PNEUMONIA, UNSPECIFIED ORGANISM (7) Abdominal pain Code(s): R10.9 - UNSPECIFIED ABDOMINAL PAIN Qualifiers: Abdominal location: unspecified location Qualified Code(s): R10.9 - Unspecified abdominal pain (8) Anemia Code(s): D64.9 - ANEMIA, UNSPECIFIED (9) Diabetes mellitus with neuropathy Code(s): E11.40 - TYPE 2 DIABETES MELLITUS WITH DIABETIC NEUROPATHY, UNSP (10) Gastroparesis due to DM Code(s): E11.43 - TYPE 2 DIABETES W DIABETIC AUTONOMIC (POLY)NEUROPATHY; K31.84 - GASTROPARESIS (11) HTN (hypertension) Code(s): I10 - ESSENTIAL (PRIMARY) HYPERTENSION (12) Leukocytosis Code(s): D72.829 - ELEVATED WHITE BLOOD CELL COUNT, UNSPECIFIED (13) Parkinson disease Code(s): G20 - PARKINSON'S DISEASE Assessment/Plan IMP BILATERAL PLEURAL EFFUSIONS/CONSOLIDATIONS ? CHF,? PNEUMONIA,?ATELECTASIS ABD PAIN ? COLITIS DM HTN DEMENTIA PARKINSONS HLD OSTEOARTHRITIS JASPER IMPROVED MYOCLONIC JERKS ?TOXIC-METABOLIC ENCEPHALOPATHY HYPERNATREMIA PLAN ABX PER ID O2 NEEDED CHEST CT ECHO BNP CULTURES MONITOR LYTES,NA,CBC LEGIONELLA URINARY ANTIGEN ABG DR CAMPA Problem List - Problems (1) JASPER (acute kidney injury) Code(s): N17.9 - ACUTE KIDNEY FAILURE, UNSPECIFIED (2) Arthritis Code(s): M19.90 - UNSPECIFIED OSTEOARTHRITIS, UNSPECIFIED SITE (3) Dementia Code(s): F03.90 - UNSPECIFIED DEMENTIA WITHOUT BEHAVIORAL DISTURBANCE (4) HLD (hyperlipidemia) Code(s): E78.5 - HYPERLIPIDEMIA, UNSPECIFIED (5) 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 (6) PNA (pneumonia) Code(s): J18.9 - PNEUMONIA, UNSPECIFIED ORGANISM (7) Abdominal pain Code(s): R10.9 - UNSPECIFIED ABDOMINAL PAIN Qualifiers: Abdominal location: unspecified location Qualified Code(s): R10.9 - Unspecified abdominal pain (8) Anemia Code(s): D64.9 - ANEMIA, UNSPECIFIED (9) Diabetes mellitus with neuropathy Code(s): E11.40 - TYPE 2 DIABETES MELLITUS WITH DIABETIC NEUROPATHY, UNSP (10) Gastroparesis due to DM Code(s): E11.43 - TYPE 2 DIABETES W DIABETIC AUTONOMIC (POLY)NEUROPATHY; K31.84 - GASTROPARESIS (11) HTN (hypertension) Code(s): I10 - ESSENTIAL (PRIMARY) HYPERTENSION (12) Leukocytosis Code(s): D72.829 - ELEVATED WHITE BLOOD CELL COUNT, UNSPECIFIED (13) Parkinson disease Code(s): G20 - PARKINSON'S DISEASE
--- NOTE | 2018-05-03 13:12 | CONSULT ---
Admitting History and Physical - Primary Care Physician PCP: Ro [place]a - Admission History of Present Illness: 78 y/o woman with a PMHx of DM2, HTN, HLD, Arthritis, Anxiety. Who presents to the ED with complaints of abdominal pain. She was noted to be more lethargic but arousable to verbal stimuli to name and time of day, attention span poor Selected Entries 05/02/18 05/02/18 05/02/18 06:43 10:00 16:00 Temperature 100.2 F H 101.1 F H 102 F H 05/02/18 05/03/18 05/03/18 22:00 01:44 02:53 Temperature 97.9 F 100.3 F H 99.6 F 05/03/18 06:00 Temperature 100.1 F H Laboratory Tests 04/29/18 04/30/18 05/01/18 06:00 06:00 07:30 WBC 16.4 H 17.6 H 11.9 H 05/02/18 05/03/18 06:20 06:00 WBC 8.1 14.5 H Diet order clear liquids. Per neurology- Sudden abnormal jerky motions seems to be Myoclonic jerks, seems to be secondary to metabolic encephalopathy. ( EEG is pending Cognitive difficulty seems to be due to metabolic encephalopathy and dementia. Per Pulmonary IMP :BILATERAL PLEURAL EFFUSIONS/CONSOLIDATIONS ? CHF,? PNEUMONIA, ?ATELECTASIS This is my first consult with this pt. History Source: Family Member, Medical Record Limitations to Obtaining History: Clinical Condition, Dementia (Baseline, pt is verbal with mild memory deficits per her daughter.) - Past Medical History [employer]: Yes: Dementia, Peripheral Neuropathy, Parkinson's Cardiovascular: Yes: HTN, Hyperlipdemia Gastrointestinal: Yes: Diverticulosis Psych: Yes: Anxiety Musculoskeletal: Yes: Osteoarthritis Endocrine: Yes: Diabetes Mellitus - Past Surgical History Past Surgical History: Yes: Appendectomy, Cholecystectomy, - Smoking History Smoking history: Smoker current status UNK Have you smoked in the past 12 months: No Aproximately how many cigarettes per day: 0 - Alcohol/Substance Use Hx Alcohol Use: No - Social History 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 History of Recent Travel: No History - Admission Reason For Visit: UNCONTROLLED DM ABD PAIN CONSTIPATION - Diagnostics CT Scan: Report Reviewed ( diverticulosis, no fecal impaction, also of note is bilateral pleural effusion and pulmonary infiltrate.) - General Mental Status: Awake and Alert, Able to Follow Commands, Forgetful, Vague, Confused, Flat Affect Attention: Distractible Ability to Follow Directions: Fair Head/Neck Control: Good - Hearing Hearing: Functional Hearing: Normal Hearing Aide: No With Patient: No Speech Evaluation - Communication Primary Language: BELIZEAN Communication: Yes: Simple Responses Oral Expression Ability: Yes: Mild Impairment, Moderate Impairment - Speech Production Able to Make Needs Known: Yes: Mildly Impaired, Moderately Impaired Intelligibility: Yes: Mildly Impaired - Speech Characteristics Voice Loudness: Normal Voice Pitch: Yes: Normal Voice Phonatory-based Quality: Yes: Normal Speech Pattern: Impaired Speech Clarity: < 50% Nasal Resonance: Normal Articulation: Yes: Precise - Language/Auditory Comprehension Follows: Yes: 1 Stage Simple Commands Observation: Able to respond to yes/no queries: Yes, Comprehends Conversational Speech: Yes (simple, when attending) - Language/Verbal Expression Aphasia: Yes: Anomia, Paraphrasic Errors, Neologisms Able to Respond to Simple Queries: Yes: Mildly Impaired, Moderately Impaired Able to Communicate Wants and Needs: Yes: Mildly Impaired, Moderately Impaired Functional Communication Status: Yes: Mildly Impaired, Moderately Impaired - Swallow Evaluation/Bedside Assessment Current Nutritional Intake: Clear Liquids Oral Secretions: Yes: WFL Dentition: Yes: Adequate Facial Symmetry at Rest: Symmetrical Facial Symmetry on Retraction: Symmetrical Against Resistance Opening: Normal Against Resistance Closing: Normal Pucker Lips: Normal Smile: Normal Lingual Movement: Normal, Symmetric Lingual Speed of Movement: Normal Lingual Movement Strgth Against Opposition: Normal Lingual Movement Characteristics: Normal Velopharyngeal Movement: Normal Laryngeal Elevation: WFL Laryngeal Movement: Able to Palpate Rate of Intake: WFL Bolus Size: WFL Labial Seal: WFL Oral Prep Time: WFL A-P Transit: WFL Pocketing: None Coughing/Throat Clear: No Change in Voice: No Recommendations - Speech Evaluation, Impression/Plan Impression: Difficulty expressing herself, sudden head jerking,impaired attention span. Swallowing overtly intact with single sips of thin liquid. Pt will likely not tolerate solids yet due to acute cognitive deficits. - Disposition Discharge to: To be Determined - Dysphagia Impressions/Plan Dysphagia Impressions: Mild Impairment, Risk of Aspiration, Ongoing Evaluation *Silent aspiration: cannot be R/O at bedside Recommendations: Other (Upgrade diet, as tolerated, if GI agrees.) - Recommendations Diet Consistency: Dysphagia Pureed Medication Administration: Crushed with applesauce Liquids: Thin Liquids
--- NOTE | 2018-05-03 14:40 | PN ---
Progress Note (short form) - Note Progress Note: VASCULAR SURGERY - Herminio Hernandez Patient well know to Surgery Service as we were following patient along w/ Dr. Jorge Called to evaluate 78yo female with RUE (upper arm --> hand) swelling. RN states no trauma to UE. Both extremities are swollen/edematous bilateral. Palpable radial pulses bilat. warm. Cap refill < 3 seconds. No pain with movement of digits. A/P 1.RUE duplex to r/o UE DVT ordered prior too my arrival. 2.Keep both arms slightly elevated on pillows 3.Cont Medical Management at this time. 4.Vascular Surgery to follow...await official study report.
[2018-05-03 15:16] LABS: ANION GAP 5 MMOL/L (8-16); BLOOD UREA NITROGEN 21 mg/dL (7-18); CALCIUM 8.2 mg/dL (8.5-10.1); CHLORIDE 121 mmol/L (98-107); CO2 28 mmol/L (21-32); CREATININE 1.6 mg/dL (0.55-1.3); GLUCOSE,RANDOM 214 mg/dL (74-106); POTASSIUM 4.4 mmol/L (3.5-5.1); SODIUM 154 mmol/L (136-145)
--- NOTE | 2018-05-03 15:43 | PN ---
Progress Note, Physician History of Present Illness: Patient examined and case discussed with Dr Ibanez GI FOLLOW UP NOTE Patient is more awake and alert today, more verbally responsive. Complain of abdominal pain to RUQ. No reports of nausea, vomiting. - Current Medication List Current Medications: Active Medications Acetaminophen (Tylenol -) 650 mg PO Q4H PRN PRN Reason: FEVER Last Admin: 05/03/18 11:28 Dose: 650 mg Aspirin (Ecotrin -) 81 mg PO DAILY [facility] Last Admin: 05/03/18 09:20 Dose: 81 mg Bupropion HCl (Wellbutrin Xl -) 150 mg PO DAILY [facility] Last Admin: 05/03/18 09:20 Dose: 150 mg Heparin Sodium (Porcine) (Heparin -) 5,000 unit SQ BID [facility] Last Admin: 05/03/18 10:55 Dose: 5,000 unit Hydralazine HCl (Apresoline -) 25 mg PO BID [facility] Last Admin: 05/03/18 10:55 Dose: 25 mg Piperacillin Sod/Tazobactam (Sod 3.375 gm/ Dextrose) 50 mls @ 100 mls/hr IVPB Q8H-IV [facility]; Protocol Last Admin: 05/03/18 10:55 Dose: 100 mls/hr Dextrose (D5w -) 1,000 mls @ 83 mls/hr IV [facility] Last Admin: 05/03/18 12:30 Dose: 83 mls/hr Insulin Aspart (Novolog Vial Sliding Scale -) 1 vial SQ ACHS [facility]; Protocol Last Admin: 05/03/18 11:00 Dose: Not Given Nifedipine (Procardia Xl -) 60 mg PO DAILY [facility] Last Admin: 05/03/18 10:55 Dose: 60 mg Pantoprazole Sodium (Protonix Iv) 40 mg IVPB DAILY [facility] Last Admin: 05/03/18 10:55 Dose: 40 mg Pramipexole Dihydrochloride (Mirapex -) 1 mg PO HS [facility] Last Admin: 05/02/18 22:59 Dose: 1 mg Rosuvastatin Calcium (Crestor -) 10 mg PO HS [facility] Last Admin: 05/02/18 22:31 Dose: 10 mg Valproate Sodium (Depacon Injection -) 500 mg IVPB TID [facility] - Objective Vital Signs: Vital Signs Temperature 100.6 F H 05/03/18 14:25 Pulse Rate 87 05/03/18 14:25 Respiratory Rate 16 05/03/18 14:25 Blood Pressure 133/79 05/03/18 14:25 O2 Sat by Pulse Oximetry (%) 97 05/02/18 20:57 Constitutional: Yes: Mild Distress Eyes: Yes: Conjunctiva Clear Cardiovascular: Yes: Regular Rate and Rhythm Respiratory: Yes: Diminished, On Nasal O2 Gastrointestinal: Yes: Normal Bowel Sounds, Soft, Tenderness (RUQ) Neurological: Yes: Alert Psychiatric: Yes: Alert Labs: CBC, BMP 05/03/18 06:00 05/03/18 13:20 Laboratory Results - last 24 hr 05/02/18 05/02/18 05/02/18 16:00 17:21 22:41 WBC RBC Hgb Hct MCV MCH MCHC RDW Plt Count MPV Anticoagulation Therapy No Result Required. Puncture Site Right radial ABG pH 7.42 ABG pCO2 at Pt Temp 41.8 ABG pO2 at Pt Temp 68.8 L ABG HCO3 26.5 H ABG O2 Sat (Measured) 93.8 ABG O2 Content 11.3 L ABG Base Excess 2.3 H Jose Test Positive O2 Delivery Device Nasal Oxygen Flow Rate 3l Vent Mode No Result Required. Vent Rate No Result Required. Mechanical Rate No Result Required. Pressure Support Vent No Result Required. Sodium Potassium Chloride Carbon Dioxide Anion Gap BUN Creatinine Creat Clearance w eGFR POC Glucometer 88 112 Random Glucose Calcium Total Bilirubin AST ALT Alkaline Phosphatase Total Protein Albumin 05/03/18 05/03/18 05/03/18 06:00 06:00 06:13 WBC 14.5 H RBC 3.30 L Hgb 9.3 L Hct 28.0 L MCV 84.9 MCH 28.1 MCHC 33.1 RDW 15.7 H Plt Count 434 MPV 8.5 Anticoagulation Therapy Puncture Site ABG pH ABG pCO2 at Pt Temp ABG pO2 at Pt Temp ABG HCO3 ABG O2 Sat (Measured) ABG O2 Content ABG Base Excess Jose Test O2 Delivery Device Oxygen Flow Rate Vent Mode Vent Rate Mechanical Rate Pressure Support Vent Sodium 156 H Potassium 4.5 Chloride 123 H Carbon Dioxide 28 Anion Gap 6 L BUN 21 H Creatinine 1.5 H Creat Clearance w eGFR 33.76 POC Glucometer 127 Random Glucose 128 H Calcium 8.5 Total Bilirubin 0.3 AST 24 ALT 26 Alkaline Phosphatase 150 H Total Protein 5.2 L Albumin 2.2 L 02/12/19 02/12/19 11:37 13:20 WBC RBC Hgb Hct MCV MCH MCHC RDW Plt Count MPV Anticoagulation Therapy Puncture Site ABG pH ABG pCO2 at Pt Temp ABG pO2 at Pt Temp ABG HCO3 ABG O2 Sat (Measured) ABG O2 Content ABG Base Excess Jose Test O2 Delivery Device Oxygen Flow Rate Vent Mode Vent Rate Mechanical Rate Pressure Support Vent Sodium 154 H Potassium 4.4 Chloride 121 H Carbon Dioxide 28 Anion Gap 5 L BUN 21 H Creatinine 1.6 H Creat Clearance w eGFR 31.34 POC Glucometer 154 Random Glucose 214 H Calcium 8.2 L Total Bilirubin AST ALT Alkaline Phosphatase Total Protein Albumin <Audrey Pastrana - Last Filed: 05/03/18 15:38> - Current Medication List Current Medications: Active Medications Acetaminophen (Tylenol -) 650 mg PO Q4H PRN PRN Reason: FEVER Last Admin: 05/04/18 14:26 Dose: 650 mg Aspirin (Ecotrin -) 81 mg PO DAILY [facility] Last Admin: 05/04/18 09:26 Dose: 81 mg Bupropion HCl (Wellbutrin Xl -) 150 mg PO DAILY [facility] Last Admin: 05/04/18 09:26 Dose: 150 mg Heparin Sodium (Porcine) (Heparin -) 5,000 unit SQ BID [facility] Last Admin: 05/04/18 09:26 Dose: 5,000 unit Hydralazine HCl (Apresoline -) 25 mg PO BID [facility] Last Admin: 05/04/18 09:26 Dose: 25 mg Piperacillin Sod/Tazobactam (Sod 3.375 gm/ Dextrose) 50 mls @ 100 mls/hr IVPB Q8H-IV [facility]; Protocol Last Admin: 05/04/18 18:20 Dose: 100 mls/hr Dextrose (D5w -) 1,000 mls @ 65 mls/hr IV Q15H [facility] Last Admin: 05/04/18 14:27 Dose: 65 mls/hr Insulin Aspart (Novolog Vial Sliding Scale -) 1 vial SQ ACHS [facility]; Protocol Last Admin: 05/04/18 17:03 Dose: 6 units Nifedipine (Procardia Xl -) 60 mg PO DAILY [facility] Last Admin: 05/04/18 09:26 Dose: 60 mg Pantoprazole Sodium (Protonix Iv) 40 mg IVPB DAILY [facility] Last Admin: 05/04/18 09:26 Dose: 40 mg Pramipexole Dihydrochloride (Mirapex -) 1 mg PO [facility] Last Admin: 05/03/18 21:32 Dose: 1 mg Rosuvastatin Calcium (Crestor -) 10 mg PO [facility] Last Admin: 05/03/18 21:31 Dose: 10 mg Valproate Sodium (Depacon Injection -) 500 mg IVPB TID [facility] Last Admin: 05/04/18 14:26 Dose: 500 mg - Objective Vital Signs: Vital Signs Temperature 97.9 F 05/04/18 18:00 Pulse Rate 79 05/04/18 18:00 Respiratory Rate 19 05/04/18 18:00 Blood Pressure 178/78 H 05/04/18 18:00 O2 Sat by Pulse Oximetry (%) 96 05/04/18 10:00 Labs: CBC, BMP 05/04/18 06:30 05/04/18 06:30 <Madhu Ibanez - Last Filed: 05/04/18 18:56> Problem List - Problems (1) HLD (hyperlipidemia) Code(s): E78.5 - HYPERLIPIDEMIA, UNSPECIFIED (2) Nausea and vomiting Assessment/Plan: -avoid zofran and reglan Code(s): R11.2 - NAUSEA WITH VOMITING, UNSPECIFIED Qualifiers: Vomiting type: unspecified Vomiting Intractability: intractable Qualified Code(s): R11.2 - Nausea with vomiting, unspecified (3) Abdominal pain Assessment/Plan: -tylenol PRN for pain management, avoid narcotics - Code(s): R10.9 - UNSPECIFIED ABDOMINAL PAIN Qualifiers: Abdominal location: unspecified location Qualified Code(s): R10.9 - Unspecified abdominal pain (4) Uncontrolled diabetes mellitus Code(s): E11.65 - TYPE 2 DIABETES MELLITUS WITH HYPERGLYCEMIA Qualifiers: Diabetes mellitus type: type 2 (5) Hypernatremia Code(s): E87.0 - HYPEROSMOLALITY AND HYPERNATREMIA (6) Metabolic encephalopathy Code(s): G93.41 - METABOLIC ENCEPHALOPATHY (7) 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 (8) PNA (pneumonia) Code(s): J18.9 - PNEUMONIA, UNSPECIFIED ORGANISM (9) Constipation Code(s): K59.00 - CONSTIPATION, UNSPECIFIED <Audrey Pastrana - Last Filed: 05/03/18 15:38> - Problems (1) Nausea and vomiting Code(s): R11.2 - NAUSEA WITH VOMITING, UNSPECIFIED Qualifiers: Vomiting type: unspecified Vomiting Intractability: intractable Qualified Code(s): R11.2 - Nausea with vomiting, unspecified (2) Abdominal pain Code(s): R10.9 - UNSPECIFIED ABDOMINAL PAIN Qualifiers: Abdominal location: unspecified location Qualified Code(s): R10.9 - Unspecified abdominal pain (3) Metabolic syndrome Code(s): E88.81 - METABOLIC SYNDROME (4) Metabolic encephalopathy Code(s): G93.41 - METABOLIC ENCEPHALOPATHY <Mahdu Ibanez - Last Filed: 05/04/18 18:56>
[2018-05-03] MEDS: ROSUVASTATIN CA 10 MG TABLET (FP) PO SCH (21:31)
[2018-05-03] MEDS: PRAMIPEXOLE DIHYDROCHLORIDE 1 MG TABLET PO SCH (21:32)
--- NOTE | 2018-05-03 21:56 | PN ---
Progress Note, Physician History of Present Illness: MUCH MORE AWAKE AND ALERT CONVERSANT NO COMPLAINTS OF PAIN BREATHING NON LABORED LOW GRADE TEMPS - Current Medication List Current Medications: Active Medications Acetaminophen (Tylenol -) 650 mg PO Q4H PRN PRN Reason: FEVER Last Admin: 05/03/18 18:09 Dose: 650 mg Aspirin (Ecotrin -) 81 mg PO DAILY [facility] Last Admin: 05/03/18 09:20 Dose: 81 mg Bupropion HCl (Wellbutrin Xl -) 150 mg PO DAILY [facility] Last Admin: 05/03/18 09:20 Dose: 150 mg Heparin Sodium (Porcine) (Heparin -) 5,000 unit SQ BID [facility] Last Admin: 05/03/18 21:32 Dose: 5,000 unit Hydralazine HCl (Apresoline -) 25 mg PO BID [facility] Last Admin: 05/03/18 21:31 Dose: 25 mg Piperacillin Sod/Tazobactam (Sod 3.375 gm/ Dextrose) 50 mls @ 100 mls/hr IVPB Q8H-IV [facility]; Protocol Last Admin: 05/03/18 19:45 Dose: Not Given Insulin Aspart (Novolog Vial Sliding Scale -) 1 vial SQ ACHS [facility]; Protocol Last Admin: 05/03/18 21:31 Dose: Not Given Nifedipine (Procardia Xl -) 60 mg PO DAILY [facility] Last Admin: 05/03/18 10:55 Dose: 60 mg Pantoprazole Sodium (Protonix Iv) 40 mg IVPB DAILY [facility] Last Admin: 05/03/18 10:55 Dose: 40 mg Pramipexole Dihydrochloride (Mirapex -) 1 mg PO HS [facility] Last Admin: 05/03/18 21:32 Dose: 1 mg Rosuvastatin Calcium (Crestor -) 10 mg PO HS [facility] Last Admin: 05/03/18 21:31 Dose: 10 mg Valproate Sodium (Depacon Injection -) 500 mg IVPB TID [facility] Last Admin: 05/03/18 21:32 Dose: 500 mg - Objective Vital Signs: Vital Signs Temperature 98.3 F 05/03/18 18:00 Pulse Rate 86 05/03/18 18:00 Respiratory Rate 20 05/03/18 18:00 Blood Pressure 141/57 L 05/03/18 18:00 O2 Sat by Pulse Oximetry (%) 97 05/03/18 09:00 Constitutional: Yes: No Distress Cardiovascular: Yes: Regular Rate and Rhythm, S1, S2 Respiratory: Yes: CTA Bilaterally, Diminished Gastrointestinal: Yes: Normal Bowel Sounds, Soft Labs: CBC, BMP 05/03/18 06:00 05/03/18 13:20 Assessment/Plan ABDOMINAL PAIN SYNDROME BIBASILAR PNEUMONIA ? HCAP R/O TOXIC METABOLIC ENCEPHALOPATHY IMPROVED CONTINUE EMPIRIC ZOSYN DISCUSSED WITH FAMILY
[2018-05-03 23:31] LABS: URINE APPEARANCE CLOUDY; URINE BILIRUBIN NEGATIVE (<2.0 mg/dL); URINE COLOR YELLOW; URINE GLUCOSE (UA) NEGATIVE (NEGATIVE); URINE KETONE TRACE (NEGATIVE); URINE LEUK ESTERASE 1+ (NEGATIVE); URINE NITRITE NEGATIVE (NEGATIVE); URINE PROTEIN 2+ (NEGATIVE); URINE UROBILINOGEN NEGATIVE mg/dL (0.2-1.0)
[2018-05-03 23:36] LABS: EPI CELLS FEW /HPF (FEW); URIC ACID CRYSTALS MANY /hpf (NONE SEEN); URINE MUCUS RARE
[2018-05-04] MEDS ORDERED: DEXTROSE 5%-WATER - 50 ML IVPB ONE ×3 (01:06→17:13)
[2018-05-04] MEDS ORDERED: PIPERACILLIN/TAZOBACTAM 3.375 GM VIAL IVPB ONE ×3 (01:06→17:13)
[2018-05-04] MEDS: PIPERACILLIN/TAZOB 3.375 GM 3.375 GM in DEXTROSE 5%-WATER - 50 ML IVPB SCH ×3 (01:12→18:20)
[2018-05-04] MEDS: ACETAMINOPHEN 325 MG TABLET (FP) PO PRN ×3 (01:16→14:26)
[2018-05-04 02:59] LABS: RATIO URIN PROTEIN/URIN CREAT 1.66 MG/DL
[2018-05-04] MEDS ORDERED: PT OWN MED DRAWER 7, Y5N ONE ×4 (05:16→22:27)
[2018-05-04] MEDS: VALPROATE SODIUM 500 MG/5 ML VIAL IVPB SCH ×3 (05:20→22:37)
[2018-05-04] MEDS: INSULIN SLIDING SCALE (NOVOLOG) 1 VIAL SQ SCH ×4 (06:23→22:38)
[2018-05-04 07:02] LABS: BASO % 0.3 % (0-2.0); EOS % 4.5 % (0-4.5); HEMATOCRIT 28.6 % (32.4-45.2); HEMOGLOBIN 9.4 GM/dL (10.7-15.3); LYMPH % 10.6 % (8-40); MCH 27.7 pg (25.7-33.7); MCHC 32.7 g/dl (32.0-36.0); MEAN CELL VOLUME 84.7 fl (80-96); NEUT % 76.6 % (42.8-82.8); PLATELET COUNT 433 K/MM3 (134-434); RBC 3.38 M/mm3 (3.60-5.2); RDW 15.8 % (11.6-15.6); WHITE BLOOD COUNT 11.1 K/mm3 (4.0-10.0)
[2018-05-04 07:34] LABS: ALBUMIN 2.1 g/dl (3.4-5.0); ALK PHOS 138 U/L (45-117); ANION GAP 7 MMOL/L (8-16); BILIRUBIN,TOTAL 0.3 mg/dL (0.2-1); BLOOD UREA NITROGEN 18 mg/dL (7-18); CALCIUM 8.2 mg/dL (8.5-10.1); CHLORIDE 122 mmol/L (98-107); CO2 28 mmol/L (21-32); CREATININE 1.3 mg/dL (0.55-1.3); GLUCOSE,RANDOM 148 mg/dL (74-106); SGOT/AST 23 U/L (15-37); SGPT/ALT 22 U/L (13-61); SODIUM 157 mmol/L (136-145); TOT PROT 5.1 g/dl (6.4-8.2)
[2018-05-04] MEDS: MINERAL OIL ENEMA 133 ML ENEMA PR ONE (08:17)
--- NOTE | 2018-05-04 08:28 | PN ---
Progress Note, Physician History of Present Illness: Patient examined and case discussed with Dr Ibanez GI FOLLOW UP NOTE Patient is more awake and alert today, more verbally responsive, periods of confusion but able to re-orient patient. Denies complaints of abdominal pain, nausea, vomiting, diarrhea. - Current Medication List Current Medications: Active Medications Acetaminophen (Tylenol -) 650 mg PO Q4H PRN PRN Reason: FEVER Last Admin: 05/04/18 06:16 Dose: 650 mg Aspirin (Ecotrin -) 81 mg PO DAILY [facility] Last Admin: 05/03/18 09:20 Dose: 81 mg Bupropion HCl (Wellbutrin Xl -) 150 mg PO DAILY [facility] Last Admin: 05/03/18 09:20 Dose: 150 mg Heparin Sodium (Porcine) (Heparin -) 5,000 unit SQ BID [facility] Last Admin: 05/03/18 21:32 Dose: 5,000 unit Hydralazine HCl (Apresoline -) 25 mg PO BID [facility] Last Admin: 05/03/18 21:31 Dose: 25 mg Piperacillin Sod/Tazobactam (Sod 3.375 gm/ Dextrose) 50 mls @ 100 mls/hr IVPB Q8H-IV [facility]; Protocol Last Admin: 05/04/18 01:12 Dose: 100 mls/hr Insulin Aspart (Novolog Vial Sliding Scale -) 1 vial SQ ACHS [facility]; Protocol Last Admin: 05/04/18 06:23 Dose: Not Given Nifedipine (Procardia Xl -) 60 mg PO DAILY [facility] Last Admin: 05/03/18 10:55 Dose: 60 mg Pantoprazole Sodium (Protonix Iv) 40 mg IVPB DAILY [facility] Last Admin: 05/03/18 10:55 Dose: 40 mg Pramipexole Dihydrochloride (Mirapex -) 1 mg PO HS [facility] Last Admin: 05/03/18 21:32 Dose: 1 mg Rosuvastatin Calcium (Crestor -) 10 mg PO HS [facility] Last Admin: 05/03/18 21:31 Dose: 10 mg Valproate Sodium (Depacon Injection -) 500 mg IVPB TID [facility] Last Admin: 05/04/18 05:20 Dose: 500 mg - Objective Vital Signs: Vital Signs Temperature 97.9 F 05/04/18 02:00 Pulse Rate 78 05/04/18 02:00 Respiratory Rate 18 05/04/18 02:00 Blood Pressure 152/64 05/04/18 02:00 O2 Sat by Pulse Oximetry (%) 96 05/03/18 21:00 Constitutional: Yes: No Distress, Calm Eyes: Yes: Conjunctiva Clear Cardiovascular: Yes: Regular Rate and Rhythm Respiratory: Yes: Regular, CTA Bilaterally Gastrointestinal: Yes: Normal Bowel Sounds, Soft. No: WNL, Abdomen, Obese, Ascites, Distention, Hematemesis, Hemorrhoids, Hepatomegaly, Hernia, Hyperactive Bowel Sounds, Hypoactive Bowel Sounds, Melena, Palpable Mass, Pulsatile Mass, Rectal Bleeding, Splenomegaly, Tenderness, Tenderness, Epigastrium, Tenderness, Rebound, Vomiting, Other Genitourinary: Yes: Schultz Present Musculoskeletal: Yes: Muscle Weakness Edema: Yes (b/l upper extremity) Neurological: Yes: Alert, Confusion Psychiatric: Yes: Alert Labs: CBC, BMP 05/04/18 06:30 05/04/18 06:30 Laboratory Results - last 24 hr 05/03/18 05/03/18 05/03/18 06:00 11:37 13:20 WBC RBC Hgb Hct MCV MCH MCHC RDW Plt Count MPV Absolute Neuts (auto) Neutrophils % Lymphocytes % Monocytes % Eosinophils % Basophils % Nucleated RBC % Sodium 156 H 154 H Potassium 4.5 4.4 Chloride 123 H 121 H Carbon Dioxide 28 28 Anion Gap 6 L 5 L BUN 21 H 21 H Creatinine 1.5 H 1.6 H Creat Clearance w eGFR 33.76 31.34 POC Glucometer 154 Random Glucose 128 H 214 H Calcium 8.5 8.2 L Total Bilirubin 0.3 AST 24 ALT 26 Alkaline Phosphatase 150 H Ammonia Total Protein 5.2 L Albumin 2.2 L Urine Color Urine Appearance Urine pH Ur Specific [place] Urine Protein Urine Glucose (UA) Urine Ketones Urine Blood Urine Nitrite Urine Bilirubin Urine Urobilinogen Ur Leukocyte Esterase Urine WBC (Auto) Urine RBC (Auto) Ur Epithelial Cells Uric Acid Crystals Urine Mucus U Random Total Protein Urine Creatinine Protein/Creatinin Ratio Stool Occult Blood 05/03/18 05/03/18 05/03/18 15:00 16:33 21:29 WBC RBC Hgb Hct MCV MCH MCHC RDW Plt Count MPV Absolute Neuts (auto) Neutrophils % Lymphocytes % Monocytes % Eosinophils % Basophils % Nucleated RBC % Sodium Potassium Chloride Carbon Dioxide Anion Gap BUN Creatinine Creat Clearance w eGFR POC Glucometer 202 117 Random Glucose Calcium Total Bilirubin AST ALT Alkaline Phosphatase Ammonia Total Protein Albumin Urine Color Urine Appearance Urine pH Ur Specific [place] Urine Protein Urine Glucose (UA) Urine Ketones Urine Blood Urine Nitrite Urine Bilirubin Urine Urobilinogen Ur Leukocyte Esterase Urine WBC (Auto) Urine RBC (Auto) Ur Epithelial Cells Uric Acid Crystals Urine Mucus U Random Total Protein Urine Creatinine Protein/Creatinin Ratio Stool Occult Blood Negative 05/03/18 05/03/18 05/04/18 21:45 21:45 05:43 WBC RBC Hgb Hct MCV MCH MCHC RDW Plt Count MPV Absolute Neuts (auto) Neutrophils % Lymphocytes % Monocytes % Eosinophils % Basophils % Nucleated RBC % Sodium Potassium Chloride Carbon Dioxide Anion Gap BUN Creatinine Creat Clearance w eGFR POC Glucometer 138 Random Glucose Calcium Total Bilirubin AST ALT Alkaline Phosphatase Ammonia Total Protein Albumin Urine Color Yellow Urine Appearance Cloudy Urine pH 5.0 Ur Specific [place] 1.021 Urine Protein 2+ H Urine Glucose (UA) Negative Urine Ketones Trace H Urine Blood Negative Urine Nitrite Negative Urine Bilirubin Negative Urine Urobilinogen Negative Ur Leukocyte Esterase 1+ H Urine WBC (Auto) 31 Urine RBC (Auto) 13 Ur Epithelial Cells Few Uric Acid Crystals Many Urine Mucus Rare U Random Total Protein 197.9 H Urine Creatinine 119.0 Protein/Creatinin Ratio 1.660 Stool Occult Blood 05/04/18 05/04/18 05/04/18 06:30 06:30 06:30 WBC 11.1 H RBC 3.38 L Hgb 9.4 L Hct 28.6 L MCV 84.7 MCH 27.7 MCHC 32.7 RDW 15.8 H Plt Count 433 MPV 8.0 Absolute Neuts (auto) 8.5 H Neutrophils % 76.6 Lymphocytes % 10.6 D Monocytes % 8.0 Eosinophils % 4.5 D Basophils % 0.3 Nucleated RBC % 0 Sodium 157 H Potassium 4.0 Chloride 122 H Carbon Dioxide 28 Anion Gap 7 L BUN 18 Creatinine 1.3 Creat Clearance w eGFR 39.82 POC Glucometer Random Glucose 148 H Calcium 8.2 L Total Bilirubin 0.3 AST 23 ALT 22 Alkaline Phosphatase 138 H Ammonia 11.00 Total Protein 5.1 L Albumin 2.1 L Urine Color Urine Appearance Urine pH Ur Specific [place] Urine Protein Urine Glucose (UA) Urine Ketones Urine Blood Urine Nitrite Urine Bilirubin Urine Urobilinogen Ur Leukocyte Esterase Urine WBC (Auto) Urine RBC (Auto) Ur Epithelial Cells Uric Acid Crystals Urine Mucus U Random Total Protein Urine Creatinine Protein/Creatinin Ratio Stool Occult Blood <Audrey Pastrana - Last Filed: 05/04/18 08:24> - Current Medication List Current Medications: Active Medications Acetaminophen (Tylenol -) 650 mg PO Q4H PRN PRN Reason: FEVER Last Admin: 05/04/18 14:26 Dose: 650 mg Aspirin (Ecotrin -) 81 mg PO DAILY [facility] Last Admin: 05/04/18 09:26 Dose: 81 mg Bupropion HCl (Wellbutrin Xl -) 150 mg PO DAILY [facility] Last Admin: 05/04/18 09:26 Dose: 150 mg Heparin Sodium (Porcine) (Heparin -) 5,000 unit SQ BID [facility] Last Admin: 05/04/18 09:26 Dose: 5,000 unit Hydralazine HCl (Apresoline -) 25 mg PO BID [facility] Last Admin: 05/04/18 09:26 Dose: 25 mg Piperacillin Sod/Tazobactam (Sod 3.375 gm/ Dextrose) 50 mls @ 100 mls/hr IVPB Q8H-IV [facility]; Protocol Last Admin: 05/04/18 18:20 Dose: 100 mls/hr Dextrose (D5w -) 1,000 mls @ 65 mls/hr IV Q15H [facility] Last Admin: 05/04/18 14:27 Dose: 65 mls/hr Insulin Aspart (Novolog Vial Sliding Scale -) 1 vial SQ ACHS [facility]; Protocol Last Admin: 05/04/18 17:03 Dose: 6 units Nifedipine (Procardia Xl -) 60 mg PO DAILY [facility] Last Admin: 05/04/18 09:26 Dose: 60 mg Pantoprazole Sodium (Protonix Iv) 40 mg IVPB DAILY [facility] Last Admin: 05/04/18 09:26 Dose: 40 mg Pramipexole Dihydrochloride (Mirapex -) 1 mg PO HS [facility] Last Admin: 05/03/18 21:32 Dose: 1 mg Rosuvastatin Calcium (Crestor -) 10 mg PO HS [facility] Last Admin: 05/03/18 21:31 Dose: 10 mg Valproate Sodium (Depacon Injection -) 500 mg IVPB TID [facility] Last Admin: 05/04/18 14:26 Dose: 500 mg - Objective Vital Signs: Vital Signs Temperature 97.9 F 05/04/18 18:00 Pulse Rate 79 05/04/18 18:00 Respiratory Rate 19 05/04/18 18:00 Blood Pressure 178/78 H 05/04/18 18:00 O2 Sat by Pulse Oximetry (%) 96 05/04/18 10:00 Labs: CBC, BMP 05/04/18 06:30 05/04/18 06:30 <Madhu Ibanez - Last Filed: 05/04/18 18:55> Problem List - Problems (1) HLD (hyperlipidemia) Code(s): E78.5 - HYPERLIPIDEMIA, UNSPECIFIED (2) Nausea and vomiting Assessment/Plan: -avoid zofran and reglan Code(s): R11.2 - NAUSEA WITH VOMITING, UNSPECIFIED Qualifiers: Vomiting type: unspecified Vomiting Intractability: intractable Qualified Code(s): R11.2 - Nausea with vomiting, unspecified (3) Abdominal pain Assessment/Plan: -tylenol PRN for pain management, avoid narcotics -will advance diet to low fiber, lactose free Code(s): R10.9 - UNSPECIFIED ABDOMINAL PAIN Qualifiers: Abdominal location: unspecified location Qualified Code(s): R10.9 - Unspecified abdominal pain (4) Uncontrolled diabetes mellitus Code(s): E11.65 - TYPE 2 DIABETES MELLITUS WITH HYPERGLYCEMIA Qualifiers: Diabetes mellitus type: type 2 (5) Hypernatremia Code(s): E87.0 - HYPEROSMOLALITY AND HYPERNATREMIA (6) Metabolic encephalopathy Code(s): G93.41 - METABOLIC ENCEPHALOPATHY (7) 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 (8) PNA (pneumonia) Code(s): J18.9 - PNEUMONIA, UNSPECIFIED ORGANISM (9) Constipation Code(s): K59.00 - CONSTIPATION, UNSPECIFIED <Audrey Pastrana - Last Filed: 05/04/18 08:24> - Problems (1) Nausea and vomiting Code(s): R11.2 - NAUSEA WITH VOMITING, UNSPECIFIED Qualifiers: Vomiting type: unspecified Vomiting Intractability: intractable Qualified Code(s): R11.2 - Nausea with vomiting, unspecified (2) Abdominal pain Code(s): R10.9 - UNSPECIFIED ABDOMINAL PAIN Qualifiers: Abdominal location: unspecified location Qualified Code(s): R10.9 - Unspecified abdominal pain (3) Metabolic syndrome Code(s): E88.81 - METABOLIC SYNDROME (4) Metabolic encephalopathy Code(s): G93.41 - METABOLIC ENCEPHALOPATHY <Madhu Ibanez - Last Filed: 05/04/18 18:55>
--- NOTE | 2018-05-04 08:56 | PN ---
Progress Note, Physician - Current Medication List Current Medications: Active Medications Acetaminophen (Tylenol -) 650 mg PO Q4H PRN PRN Reason: FEVER Last Admin: 05/04/18 06:16 Dose: 650 mg Aspirin (Ecotrin -) 81 mg PO DAILY [facility] Last Admin: 05/03/18 09:20 Dose: 81 mg Bupropion HCl (Wellbutrin Xl -) 150 mg PO DAILY [facility] Last Admin: 05/03/18 09:20 Dose: 150 mg Heparin Sodium (Porcine) (Heparin -) 5,000 unit SQ BID [facility] Last Admin: 05/03/18 21:32 Dose: 5,000 unit Hydralazine HCl (Apresoline -) 25 mg PO BID [facility] Last Admin: 05/03/18 21:31 Dose: 25 mg Piperacillin Sod/Tazobactam (Sod 3.375 gm/ Dextrose) 50 mls @ 100 mls/hr IVPB Q8H-IV [facility]; Protocol Last Admin: 05/04/18 01:12 Dose: 100 mls/hr Insulin Aspart (Novolog Vial Sliding Scale -) 1 vial SQ ACHS [facility]; Protocol Last Admin: 05/04/18 06:23 Dose: Not Given Nifedipine (Procardia Xl -) 60 mg PO DAILY [facility] Last Admin: 05/03/18 10:55 Dose: 60 mg Pantoprazole Sodium (Protonix Iv) 40 mg IVPB DAILY [facility] Last Admin: 05/03/18 10:55 Dose: 40 mg Pramipexole Dihydrochloride (Mirapex -) 1 mg PO HS [facility] Last Admin: 05/03/18 21:32 Dose: 1 mg Rosuvastatin Calcium (Crestor -) 10 mg PO HS [facility] Last Admin: 05/03/18 21:31 Dose: 10 mg Valproate Sodium (Depacon Injection -) 500 mg IVPB TID [facility] Last Admin: 05/04/18 05:20 Dose: 500 mg - Objective Vital Signs: Vital Signs Temperature 97.9 F 05/04/18 02:00 Pulse Rate 78 05/04/18 02:00 Respiratory Rate 18 05/04/18 02:00 Blood Pressure 152/64 05/04/18 02:00 O2 Sat by Pulse Oximetry (%) 96 05/03/18 21:00 Cardiovascular: Yes: Regular Rate and Rhythm Respiratory: Yes: Diminished Gastrointestinal: Yes: Normal Bowel Sounds, Soft Edema: RUE: 1+ Labs: CBC, BMP 05/04/18 06:30 05/04/18 06:30 Problem List - Problems (1) Leukocytosis Assessment/Plan: id consul noted follow cultures Microbiology 05/01/18 16:00 Blood - Peripheral Venous Blood Culture - Preliminary NO GROWTH OBTAINED AFTER 48 HOURS, INCUBATION TO CONTINUE FOR 3 DAYS. 05/01/18 15:40 Blood - Peripheral Venous Blood Culture - Preliminary NO GROWTH OBTAINED AFTER 48 HOURS, INCUBATION TO CONTINUE FOR 3 DAYS. 05/02/18 14:30 Urine For Antigen Detection Legionella Antigen - Final 05/02/18 14:30 Urine For Antigen Detection Streptococcus pneumoniae Antigen (M - Final 05/01/18 16:00 Urine - Urine Schultz Urine Culture - Final NO GROWTH OBTAINED 04/28/18 05:30 Blood - Peripheral Venous Blood Culture - Final NO GROWTH AFTER 5 DAYS INCUBATION 04/28/18 05:00 Blood - Peripheral Venous Blood Culture - Final NO GROWTH AFTER 5 DAYS INCUBATION 04/28/18 06:00 Urine - Urine Schultz Urine Culture - Final NO GROWTH OBTAINED Code(s): D72.829 - ELEVATED WHITE BLOOD CELL COUNT, UNSPECIFIED (2) Abdominal pain Assessment/Plan: -Resolved -pt without tenderness +wbc id consult gi and surgery on case -advance diet as tolerated -currently no nausea or vomiting reported -d/c NPO status and start on clear liquid diet -cont with ceftriaxone 1g IVPB daily and flagyl 500mg IVPB q8h -Abd/Pelvic CT scan noted Code(s): R10.9 - UNSPECIFIED ABDOMINAL PAIN Qualifiers: Abdominal location: unspecified location Qualified Code(s): R10.9 - Unspecified abdominal pain (3) HLD (hyperlipidemia) Code(s): E78.5 - HYPERLIPIDEMIA, UNSPECIFIED (4) Diabetes Code(s): E11.9 - TYPE 2 DIABETES MELLITUS WITHOUT COMPLICATIONS Qualifiers: Diabetes mellitus type: type 2 (5) Hypernatremia Code(s): E87.0 - HYPEROSMOLALITY AND HYPERNATREMIA (6) 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 (7) PNA (pneumonia) Code(s): J18.9 - PNEUMONIA, UNSPECIFIED ORGANISM (8) Metabolic encephalopathy Code(s): G93.41 - METABOLIC ENCEPHALOPATHY (9) Constipation Code(s): K59.00 - CONSTIPATION, UNSPECIFIED
--- NOTE | 2018-05-04 09:02 | PN ---
Progress Note (short form) - Note Progress Note: 78 year old female history of IDDM, HTN,HLD,Anxiety, PD( on mirapex), Peripheral neuropathy, Dementia. Patient has come to hospital for Abdominal pain and fecal impaction.She is found to have intermittent whole body shaking . There has not been any new focal neurological symptoms, except she has been confused . Her initial ct had was unmremarkable. PMH Dementia, IDDM,HTN,HLD,PD,Divertoculosis, Osteoarthritis. Patient has not had any jerky motion since last night, She also had bowel movement. NEUROLOGICAL Examination Alert oriented x 2 ( she says today is apr 2018 and told me her name and she told me she is in [place] she is not able to engage in conversation eomi, pupils reactive, no face asymmetry moving all ext sensation is noraml reflex are generalized diminished Recurrent whole body jerky motion were noticed. ct head no acute findings Assessment/Plan 1.sudden abnormal jerky motions seems to be Myoclonic jerks, seems to be secondary to metabolic encphalopathy. ( hypernatremia, hyper glycemia , GI issues). Mental status has improved and no more jerking. continue depakote to 500 mg iv tid. -will follow up on eeg 2. Cognitive difficulty seems to be due to metabolic encephalopathy and dementia. continue supportive care Thanking you so much Deion Florez MD
[2018-05-04] MEDS: hydrALAZINE HCL 25 MG TABLET (FP) PO SCH ×2 (09:26→22:38)
[2018-05-04] MEDS: ASPIRIN COATED 81 MG TABLET.EC PO SCH (09:26)
[2018-05-04] MEDS: NIFEdipine E.R 60 MG TABLET (UD) PO SCH (09:26)
[2018-05-04] MEDS: PANTOPRAZOLE SODIUM 40 MG VIAL IVPB SCH (09:26)
[2018-05-04] MEDS: HEPARIN NA (PORCINE) 5,000 UNITS/ML 1ML VIAL SQ SCH ×2 (09:26→22:37)
--- NOTE | 2018-05-04 11:04 | PN ---
Progress Note, Physician History of Present Illness: WAS ALERT PER STAFF THIS AM NOW AGAIN CONFUSED WITH MYOCLONIC JERKS BREATHING NON LABORED LOW GRADE TEMPS WBC IMPROVED - Current Medication List Current Medications: Active Medications Acetaminophen (Tylenol -) 650 mg PO Q4H PRN PRN Reason: FEVER Last Admin: 05/04/18 06:16 Dose: 650 mg Aspirin (Ecotrin -) 81 mg PO DAILY [facility] Last Admin: 05/04/18 09:26 Dose: 81 mg Bupropion HCl (Wellbutrin Xl -) 150 mg PO DAILY [facility] Last Admin: 05/04/18 09:26 Dose: 150 mg Heparin Sodium (Porcine) (Heparin -) 5,000 unit SQ BID [facility] Last Admin: 05/04/18 09:26 Dose: 5,000 unit Hydralazine HCl (Apresoline -) 25 mg PO BID [facility] Last Admin: 05/04/18 09:26 Dose: 25 mg Piperacillin Sod/Tazobactam (Sod 3.375 gm/ Dextrose) 50 mls @ 100 mls/hr IVPB Q8H-IV [facility]; Protocol Last Admin: 05/04/18 09:26 Dose: 100 mls/hr Insulin Aspart (Novolog Vial Sliding Scale -) 1 vial SQ ACHS [facility]; Protocol Last Admin: 05/04/18 06:23 Dose: Not Given Nifedipine (Procardia Xl -) 60 mg PO DAILY [facility] Last Admin: 05/04/18 09:26 Dose: 60 mg Pantoprazole Sodium (Protonix Iv) 40 mg IVPB DAILY [facility] Last Admin: 05/04/18 09:26 Dose: 40 mg Pramipexole Dihydrochloride (Mirapex -) 1 mg PO HS [facility] Last Admin: 05/03/18 21:32 Dose: 1 mg Rosuvastatin Calcium (Crestor -) 10 mg PO HS [facility] Last Admin: 05/03/18 21:31 Dose: 10 mg Valproate Sodium (Depacon Injection -) 500 mg IVPB TID [facility] Last Admin: 05/04/18 05:20 Dose: 500 mg - Objective Vital Signs: Vital Signs Temperature 97.9 F 05/04/18 02:00 Pulse Rate 78 05/04/18 02:00 Respiratory Rate 18 05/04/18 02:00 Blood Pressure 152/64 05/04/18 02:00 O2 Sat by Pulse Oximetry (%) 96 05/03/18 21:00 Constitutional: Yes: No Distress Cardiovascular: Yes: Regular Rate and Rhythm, S1, S2 Respiratory: Yes: Diminished Gastrointestinal: Yes: Normal Bowel Sounds, Soft. No: Tenderness Edema: No Labs: CBC, BMP 05/04/18 06:30 05/04/18 06:30 Assessment/Plan ALTERED MENTAL STATUS ? ETIOLOGY ABDOMINAL PAIN SYNDROME BIBASILAR PNEUMONIA ? HCAP R/O TOXIC METABOLIC ENCEPHALOPATHY IMPROVED CONTINUE EMPIRIC ZOSYN DISCUSSED WITH FAMILY
--- NOTE | 2018-05-04 12:13 | PN ---
Progress Note, Physician History of Present Illness: PULMONARY AWAKE,-RESP DISTRESS - Current Medication List Current Medications: Active Medications Acetaminophen (Tylenol -) 650 mg PO Q4H PRN PRN Reason: FEVER Last Admin: 05/04/18 06:16 Dose: 650 mg Aspirin (Ecotrin -) 81 mg PO DAILY [facility] Last Admin: 05/04/18 09:26 Dose: 81 mg Bupropion HCl (Wellbutrin Xl -) 150 mg PO DAILY [facility] Last Admin: 05/04/18 09:26 Dose: 150 mg Heparin Sodium (Porcine) (Heparin -) 5,000 unit SQ BID [facility] Last Admin: 05/04/18 09:26 Dose: 5,000 unit Hydralazine HCl (Apresoline -) 25 mg PO BID [facility] Last Admin: 05/04/18 09:26 Dose: 25 mg Piperacillin Sod/Tazobactam (Sod 3.375 gm/ Dextrose) 50 mls @ 100 mls/hr IVPB Q8H-IV [facility]; Protocol Last Admin: 05/04/18 09:26 Dose: 100 mls/hr Insulin Aspart (Novolog Vial Sliding Scale -) 1 vial SQ ACHS [facility]; Protocol Last Admin: 05/04/18 12:03 Dose: Not Given Nifedipine (Procardia Xl -) 60 mg PO DAILY [facility] Last Admin: 05/04/18 09:26 Dose: 60 mg Pantoprazole Sodium (Protonix Iv) 40 mg IVPB DAILY [facility] Last Admin: 05/04/18 09:26 Dose: 40 mg Pramipexole Dihydrochloride (Mirapex -) 1 mg PO HS [facility] Last Admin: 05/03/18 21:32 Dose: 1 mg Rosuvastatin Calcium (Crestor -) 10 mg PO HS [facility] Last Admin: 05/03/18 21:31 Dose: 10 mg Valproate Sodium (Depacon Injection -) 500 mg IVPB TID [facility] Last Admin: 05/04/18 05:20 Dose: 500 mg - Objective Vital Signs: Vital Signs Temperature 97.9 F 05/04/18 02:00 Pulse Rate 78 05/04/18 02:00 Respiratory Rate 18 05/04/18 02:00 Blood Pressure 152/64 05/04/18 02:00 O2 Sat by Pulse Oximetry (%) 96 05/03/18 21:00 Constitutional: Yes: Well Nourished, Calm Eyes: Yes: WNL HENT: Yes: WNL Neck: Yes: WNL Cardiovascular: Yes: Regular Rate and Rhythm, S1, S2 Respiratory: Yes: Diminished Gastrointestinal: Yes: Normal Bowel Sounds, Soft Extremities: Yes: WNL Edema: No Labs: CBC, BMP 05/04/18 06:30 05/04/18 06:30 Problem List - Problems (1) JASPER (acute kidney injury) Code(s): N17.9 - ACUTE KIDNEY FAILURE, UNSPECIFIED (2) Arthritis Code(s): M19.90 - UNSPECIFIED OSTEOARTHRITIS, UNSPECIFIED SITE (3) Dementia Code(s): F03.90 - UNSPECIFIED DEMENTIA WITHOUT BEHAVIORAL DISTURBANCE (4) HLD (hyperlipidemia) Code(s): E78.5 - HYPERLIPIDEMIA, UNSPECIFIED (5) 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 (6) PNA (pneumonia) Code(s): J18.9 - PNEUMONIA, UNSPECIFIED ORGANISM (7) Abdominal pain Code(s): R10.9 - UNSPECIFIED ABDOMINAL PAIN Qualifiers: Abdominal location: unspecified location Qualified Code(s): R10.9 - Unspecified abdominal pain (8) Anemia Code(s): D64.9 - ANEMIA, UNSPECIFIED (9) Diabetes mellitus with neuropathy Code(s): E11.40 - TYPE 2 DIABETES MELLITUS WITH DIABETIC NEUROPATHY, UNSP (10) Gastroparesis due to DM Code(s): E11.43 - TYPE 2 DIABETES W DIABETIC AUTONOMIC (POLY)NEUROPATHY; K31.84 - GASTROPARESIS (11) HTN (hypertension) Code(s): I10 - ESSENTIAL (PRIMARY) HYPERTENSION (12) Leukocytosis Code(s): D72.829 - ELEVATED WHITE BLOOD CELL COUNT, UNSPECIFIED (13) Parkinson disease Code(s): G20 - PARKINSON'S DISEASE Assessment/Plan IMP BILATERAL PLEURAL EFFUSIONS/CONSOLIDATIONS ? CHF,? PNEUMONIA,?ATELECTASIS ABD PAIN ? COLITIS IMPROVING DM HTN DEMENTIA PARKINSONS HLD OSTEOARTHRITIS JASPER IMPROVED MYOCLONIC JERKS ?TOXIC-METABOLIC ENCEPHALOPATHY IMPROVING HYPERNATREMIA PLAN ABX PER ID O2 NEEDED MONITOR LYTES,NA,CBC CARDIOLOGY EVALUATION ? LISA CAMPA Problem List - Problems (1) JASPER (acute kidney injury) Code(s): N17.9 - ACUTE KIDNEY FAILURE, UNSPECIFIED (2) Arthritis Code(s): M19.90 - UNSPECIFIED OSTEOARTHRITIS, UNSPECIFIED SITE (3) Dementia Code(s): F03.90 - UNSPECIFIED DEMENTIA WITHOUT BEHAVIORAL DISTURBANCE (4) HLD (hyperlipidemia) Code(s): E78.5 - HYPERLIPIDEMIA, UNSPECIFIED (5) 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 (6) PNA (pneumonia) Code(s): J18.9 - PNEUMONIA, UNSPECIFIED ORGANISM (7) Abdominal pain Code(s): R10.9 - UNSPECIFIED ABDOMINAL PAIN Qualifiers: Abdominal location: unspecified location Qualified Code(s): R10.9 - Unspecified abdominal pain (8) Anemia Code(s): D64.9 - ANEMIA, UNSPECIFIED (9) Diabetes mellitus with neuropathy Code(s): E11.40 - TYPE 2 DIABETES MELLITUS WITH DIABETIC NEUROPATHY, UNSP (10) Gastroparesis due to DM Code(s): E11.43 - TYPE 2 DIABETES W DIABETIC AUTONOMIC (POLY)NEUROPATHY; K31.84 - GASTROPARESIS (11) HTN (hypertension) Code(s): I10 - ESSENTIAL (PRIMARY) HYPERTENSION (12) Leukocytosis Code(s): D72.829 - ELEVATED WHITE BLOOD CELL COUNT, UNSPECIFIED (13) Parkinson disease Code(s): G20 - PARKINSON'S DISEASE
--- NOTE | 2018-05-04 13:21 | PN ---
Progress Note, Physician History of Present Illness: Pt seen and examined at bedside. She is awake but anxious today. She has poor PO intake. - Current Medication List Current Medications: Active Medications Acetaminophen (Tylenol -) 650 mg PO Q4H PRN PRN Reason: FEVER Last Admin: 05/04/18 06:16 Dose: 650 mg Aspirin (Ecotrin -) 81 mg PO DAILY [facility] Last Admin: 05/04/18 09:26 Dose: 81 mg Bupropion HCl (Wellbutrin Xl -) 150 mg PO DAILY [facility] Last Admin: 05/04/18 09:26 Dose: 150 mg Heparin Sodium (Porcine) (Heparin -) 5,000 unit SQ BID [facility] Last Admin: 05/04/18 09:26 Dose: 5,000 unit Hydralazine HCl (Apresoline -) 25 mg PO BID [facility] Last Admin: 05/04/18 09:26 Dose: 25 mg Piperacillin Sod/Tazobactam (Sod 3.375 gm/ Dextrose) 50 mls @ 100 mls/hr IVPB Q8H-IV [facility]; Protocol Last Admin: 05/04/18 09:26 Dose: 100 mls/hr Insulin Aspart (Novolog Vial Sliding Scale -) 1 vial SQ ACHS [facility]; Protocol Last Admin: 05/04/18 12:03 Dose: Not Given Nifedipine (Procardia Xl -) 60 mg PO DAILY [facility] Last Admin: 05/04/18 09:26 Dose: 60 mg Pantoprazole Sodium (Protonix Iv) 40 mg IVPB DAILY [facility] Last Admin: 05/04/18 09:26 Dose: 40 mg Pramipexole Dihydrochloride (Mirapex -) 1 mg PO HS [facility] Last Admin: 05/03/18 21:32 Dose: 1 mg Rosuvastatin Calcium (Crestor -) 10 mg PO HS [facility] Last Admin: 05/03/18 21:31 Dose: 10 mg Valproate Sodium (Depacon Injection -) 500 mg IVPB TID [facility] Last Admin: 05/04/18 05:20 Dose: 500 mg - Objective Vital Signs: Vital Signs Temperature 98.3 F 05/04/18 10:00 Pulse Rate 76 05/04/18 10:00 Respiratory Rate 18 05/04/18 10:00 Blood Pressure 168/92 05/04/18 10:00 O2 Sat by Pulse Oximetry (%) 96 02/13/19 10:00 Constitutional: Yes: Calm Eyes: Yes: Conjunctiva Clear HENT: Yes: Atraumatic Neck: Yes: Supple Cardiovascular: Yes: S1, S2 Respiratory: Yes: CTA Bilaterally Gastrointestinal: Yes: Soft Genitourinary: Yes: Schultz Present Musculoskeletal: Yes: WNL Edema: LUE: Trace, RUE: Trace Neurological: Yes: Oriented Psychiatric: Yes: Oriented Labs: CBC, BMP 05/04/18 06:30 05/04/18 06:30 Problem List - Problems (1) Hypernatremia Code(s): E87.0 - HYPEROSMOLALITY AND HYPERNATREMIA Assessment/Plan Current Medications Generic Name Dose Route Start Last Admin Trade Name Freq PRN Reason Stop Dose Admin Acetaminophen 650 mg 05/02/18 10:04 05/04/18 06:16 Tylenol - PO 650 mg Q4H PRN Administration FEVER Aspirin 81 mg 04/28/18 10:00 05/04/18 09:26 Ecotrin - PO 81 mg DAILY [facility] Administration Bupropion HCl 150 mg 04/28/18 10:00 05/04/18 09:26 Wellbutrin Xl - PO 150 mg DAILY [facility] Administration Heparin Sodium (Porcine) 5,000 unit 04/28/18 10:00 05/04/18 09:26 Heparin - SQ 5,000 unit BID [facility] Administration Hydralazine HCl 25 mg 04/28/18 10:00 05/04/18 09:26 Apresoline - PO 25 mg BID [facility] Administration Piperacillin Sod/Tazobactam 50 mls @ 100 mls/hr 05/02/18 13:00 05/04/18 09:26 Sod 3.375 gm/ Dextrose IVPB 100 mls/hr Q8H-IV [facility] Administration Protocol Insulin Aspart 1 vial 04/28/18 07:00 05/04/18 12:03 Novolog Vial Sliding Scale - SQ Not Given ACHS [facility] Protocol Nifedipine 60 mg 04/28/18 10:00 05/04/18 09:26 Procardia Xl - PO 60 mg DAILY [facility] Administration Pantoprazole Sodium 40 mg 04/28/18 10:00 05/04/18 09:26 Protonix Iv IVPB 40 mg DAILY [facility] Administration Pramipexole Dihydrochloride 1 mg 04/28/18 22:00 05/03/18 21:32 Mirapex - PO 1 mg HS [facility] Administration Rosuvastatin Calcium 10 mg 04/28/18 22:00 05/03/18 21:31 Crestor - PO 10 mg HS [facility] Administration Valproate Sodium 500 mg 05/03/18 14:00 05/04/18 05:20 Depacon Injection - IVPB 500 mg TID [facility] Administration Laboratory Tests 05/03/18 05/03/18 21:45 21:45 Urine Protein 2+ H Protein/Creatinin Ratio 1.660 Impression 1. hypernatremia 2. fecal impaction 3. HLD 4. fever 5. HTN 6. DM 7. 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
[2018-05-04] MEDS: DEXTROSE 5%-WATER - 1,000 ML IV SCH (14:27)
--- NOTE | 2018-05-04 15:21 | PN ---
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 Staff reports good tolerance of oatmeal this am. Pt's daughter said she could not tolerate cheeseburger sent lunchtime. Pt's daughter would like mashed potatoes and pureed foods. Recommendations Diet Consistency: Dysphagia Pureed Medication Administration: Crushed with applesauce Liquids: Thin Liquids Reviewed with nursing.
--- NOTE | 2018-05-04 15:55 | PN ---
Progress Note, Physician Chief Complaint: Cardiology follow up. Telem NSR Asked to see for pleural effusions. Patient hypernatremic. More alert eats a little. No dyspnea and comfortable in bed. CT chest 05/02 showed moderate bilateral effusions History of Present Illness: The patient is a 78-year-old female with a history of diabetes, hypertension, hyperlipidemia, Parkinson's disease, dementia, diverticulosis, GI bleed, chronic kidney disease, now admitted for fecal impaction. Treated for presumed HAP on Zosyn - Current Medication List Current Medications: Active Medications Acetaminophen (Tylenol -) 650 mg PO Q4H PRN PRN Reason: FEVER Last Admin: 05/04/18 14:26 Dose: 650 mg Aspirin (Ecotrin -) 81 mg PO DAILY [facility] Last Admin: 05/04/18 09:26 Dose: 81 mg Bupropion HCl (Wellbutrin Xl -) 150 mg PO DAILY [facility] Last Admin: 05/04/18 09:26 Dose: 150 mg Heparin Sodium (Porcine) (Heparin -) 5,000 unit SQ BID [facility] Last Admin: 05/04/18 09:26 Dose: 5,000 unit Hydralazine HCl (Apresoline -) 25 mg PO BID [facility] Last Admin: 05/04/18 09:26 Dose: 25 mg Piperacillin Sod/Tazobactam (Sod 3.375 gm/ Dextrose) 50 mls @ 100 mls/hr IVPB Q8H-IV [facility]; Protocol Last Admin: 05/04/18 09:26 Dose: 100 mls/hr Dextrose (D5w -) 1,000 mls @ 65 mls/hr IV Q15H [facility] Last Admin: 05/04/18 14:27 Dose: 65 mls/hr Insulin Aspart (Novolog Vial Sliding Scale -) 1 vial SQ ACHS [facility]; Protocol Last Admin: 05/04/18 12:03 Dose: Not Given Nifedipine (Procardia Xl -) 60 mg PO DAILY [facility] Last Admin: 05/04/18 09:26 Dose: 60 mg Pantoprazole Sodium (Protonix Iv) 40 mg IVPB DAILY [facility] Last Admin: 05/04/18 09:26 Dose: 40 mg Pramipexole Dihydrochloride (Mirapex -) 1 mg PO HS [facility] Last Admin: 05/03/18 21:32 Dose: 1 mg Rosuvastatin Calcium (Crestor -) 10 mg PO HS [facility] Last Admin: 05/03/18 21:31 Dose: 10 mg Valproate Sodium (Depacon Injection -) 500 mg IVPB TID [facility] Last Admin: 05/04/18 14:26 Dose: 500 mg - Objective Vital Signs: Vital Signs Temperature 97.5 F L 05/04/18 15:11 Pulse Rate 85 05/04/18 15:11 Respiratory Rate 20 05/04/18 15:11 Blood Pressure 149/75 05/04/18 15:11 O2 Sat by Pulse Oximetry (%) 96 05/04/18 10:00 Constitutional: Yes: Well Nourished, No Distress, Calm Eyes: Yes: Conjunctiva Clear, EOM Intact HENT: Yes: Atraumatic, Normocephalic Cardiovascular: Yes: Regular Rate and Rhythm, S1, S2. No: JVD Respiratory: Yes: Diminished (bilateral basilar BS). No: Rales, SOB Gastrointestinal: Yes: Normal Bowel Sounds, Soft Edema: Yes Edema: LUE: 1+, RUE: 1+ Labs: CBC, BMP 05/04/18 06:30 05/04/18 06:30 Problem List - Problems (1) JASPER (acute kidney injury) Code(s): N17.9 - ACUTE KIDNEY FAILURE, UNSPECIFIED (2) Hypernatremia Code(s): E87.0 - HYPEROSMOLALITY AND HYPERNATREMIA (3) Chronic edema Code(s): R60.9 - EDEMA, UNSPECIFIED Assessment/Plan The patient is a 78-year-old female with a history of diabetes, hypertension, hyperlipidemia, Parkinson's disease, dementia, diverticulosis, GI bleed, chronic kidney disease, now admitted for fecal impaction. Treated for presumed HAP on Zosyn CT with bilateral pleural effusions, BNP 5K clinically dry. Echo with normal LV function. She has poor PO intake but seems to have no respiratory complaints. Albumin 2.9 Started on IV d5. Rec check serum and urine osmolality, Urine sodium. Likely volume depleted. Continue D5
[2018-05-04] MEDS: PRAMIPEXOLE DIHYDROCHLORIDE 1 MG TABLET PO SCH (22:38)
[2018-05-04] MEDS: ROSUVASTATIN CA 10 MG TABLET (FP) PO SCH (22:38)
[2018-05-05] MEDS ORDERED: DEXTROSE 5%-WATER - 50 ML IVPB ONE ×3 (01:19→17:24)
[2018-05-05] MEDS ORDERED: PIPERACILLIN/TAZOBACTAM 3.375 GM VIAL IVPB ONE ×3 (01:19→17:24)
[2018-05-05] MEDS: PIPERACILLIN/TAZOB 3.375 GM 3.375 GM in DEXTROSE 5%-WATER - 50 ML IVPB SCH ×3 (02:29→17:26)
[2018-05-05] MEDS ORDERED: PT OWN MED DRAWER 7, Y5N ONE ×4 (05:27→21:40)
[2018-05-05] MEDS: DEXTROSE 5%-WATER - 1,000 ML IV SCH (05:45)
[2018-05-05] MEDS: VALPROATE SODIUM 500 MG/5 ML VIAL IVPB SCH ×3 (05:46→21:47)
[2018-05-05] MEDS: INSULIN SLIDING SCALE (NOVOLOG) 1 VIAL SQ SCH ×4 (07:01→21:53)
--- NOTE | 2018-05-05 08:19 | PN ---
Progress Note (short form) - Note Progress Note: 78 year old female history of IDDM, HTN,HLD,Anxiety, PD( on mirapex), Peripheral neuropathy, Dementia. Patient has come to hospital for Abdominal pain and fecal impaction.She is found to have intermittent whole body shaking . There has not been any new focal neurological symptoms, except she has been confused . Her initial ct had was unmremarkable. PMH Dementia, IDDM,HTN,HLD,PD,Divertoculosis, Osteoarthritis. Patient has not had any jerky motion , She also had bowel movement. NEUROLOGICAL Examination Alert oriented x 2 ( she says today is apr 2018 and told me her name and she told me she is in [place] she is not able to engage in conversation eomi, pupils reactive, no face asymmetry moving all ext sensation is noraml reflex are generalized diminished Recurrent whole body jerky motion were noticed. ct head no acute findings Assessment/Plan 1.sudden abnormal jerky motions seems to be Myoclonic jerks, seems to be secondary to metabolic encphalopathy. ( hypernatremia, hyper glycemia , GI issues). There has not been jerky motion and her mental status improved continue depakote to 500 mg iv tid for now, I would repeat eeg on wednesday and consider reducing depakote dose, as she may not require high dose for penitentiary. 2. Cognitive difficulty seems to be due to metabolic encephalopathy and dementia. continue supportive care Thanking you so much Deion Florez MD
--- NOTE | 2018-05-05 08:28 | PN ---
Progress Note, Physician History of Present Illness: Patient examined and case discussed with Dr Ibanez GI FOLLOW UP NOTE Patient is more awake and alert today, more verbally responsive, periods of confusion but able to re-orient patient. Complains of slight abdominal pain to LLQ. Denies nausea, vomiting, diarrhea. - Current Medication List Current Medications: Active Medications Acetaminophen (Tylenol -) 650 mg PO Q4H PRN PRN Reason: FEVER Last Admin: 05/04/18 14:26 Dose: 650 mg Aspirin (Ecotrin -) 81 mg PO DAILY [facility] Last Admin: 05/04/18 09:26 Dose: 81 mg Bupropion HCl (Wellbutrin Xl -) 150 mg PO DAILY [facility] Last Admin: 05/04/18 09:26 Dose: 150 mg Heparin Sodium (Porcine) (Heparin -) 5,000 unit SQ BID [facility] Last Admin: 05/04/18 22:37 Dose: 5,000 unit Hydralazine HCl (Apresoline -) 25 mg PO BID [facility] Last Admin: 05/04/18 22:38 Dose: 25 mg Piperacillin Sod/Tazobactam (Sod 3.375 gm/ Dextrose) 50 mls @ 100 mls/hr IVPB Q8H-IV [facility]; Protocol Last Admin: 05/05/18 02:29 Dose: 100 mls/hr Dextrose (D5w -) 1,000 mls @ 65 mls/hr IV Q15H [facility] Last Admin: 05/05/18 05:45 Dose: 65 mls/hr Insulin Aspart (Novolog Vial Sliding Scale -) 1 vial SQ ACHS [facility]; Protocol Last Admin: 05/05/18 07:01 Dose: 2 units Nifedipine (Procardia Xl -) 60 mg PO DAILY [facility] Last Admin: 05/04/18 09:26 Dose: 60 mg Pantoprazole Sodium (Protonix Iv) 40 mg IVPB DAILY [facility] Last Admin: 05/04/18 09:26 Dose: 40 mg Pramipexole Dihydrochloride (Mirapex -) 1 mg PO HS [facility] Last Admin: 05/04/18 22:38 Dose: 1 mg Rosuvastatin Calcium (Crestor -) 10 mg PO HS [facility] Last Admin: 05/04/18 22:38 Dose: 10 mg Valproate Sodium (Depacon Injection -) 500 mg IVPB TID [facility] Last Admin: 05/05/18 05:46 Dose: 500 mg - Objective Vital Signs: Vital Signs Temperature 98.7 F 05/05/18 06:22 Pulse Rate 72 05/05/18 06:22 Respiratory Rate 20 05/05/18 06:22 Blood Pressure 155/69 05/05/18 06:22 O2 Sat by Pulse Oximetry (%) 96 05/04/18 20:16 Constitutional: Yes: No Distress, Calm Eyes: Yes: Conjunctiva Clear Cardiovascular: Yes: Regular Rate and Rhythm Respiratory: Yes: Regular, Diminished, On Nasal O2 Gastrointestinal: Yes: Normal Bowel Sounds, Soft, Tenderness (llq) Genitourinary: Yes: Schultz Present Neurological: Yes: Alert, Confusion Labs: CBC, BMP 05/04/18 06:30 05/04/18 06:30 Problem List - Problems (1) HLD (hyperlipidemia) Code(s): E78.5 - HYPERLIPIDEMIA, UNSPECIFIED (2) Nausea and vomiting Code(s): R11.2 - NAUSEA WITH VOMITING, UNSPECIFIED Qualifiers: Vomiting type: unspecified Vomiting Intractability: intractable Qualified Code(s): R11.2 - Nausea with vomiting, unspecified (3) Abdominal pain Assessment/Plan: -tylenol PRN for pain management, avoid narcotics -will advance diet to low fiber, lactose free Code(s): R10.9 - UNSPECIFIED ABDOMINAL PAIN Qualifiers: Abdominal location: unspecified location Qualified Code(s): R10.9 - Unspecified abdominal pain (4) Uncontrolled diabetes mellitus Code(s): E11.65 - TYPE 2 DIABETES MELLITUS WITH HYPERGLYCEMIA Qualifiers: Diabetes mellitus type: type 2 (5) Hypernatremia Code(s): E87.0 - HYPEROSMOLALITY AND HYPERNATREMIA (6) Metabolic encephalopathy Code(s): G93.41 - METABOLIC ENCEPHALOPATHY (7) 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 (8) PNA (pneumonia) Code(s): J18.9 - PNEUMONIA, UNSPECIFIED ORGANISM (9) Constipation Code(s): K59.00 - CONSTIPATION, UNSPECIFIED (10) IBS (irritable bowel syndrome) Assessment/Plan: -to start on Creon 36,000 units PO TID -to start Xifaxin 550mg PO TID Code(s): K58.9 - IRRITABLE BOWEL SYNDROME WITHOUT DIARRHEA
[2018-05-05] MEDS: PANTOPRAZOLE SODIUM 40 MG VIAL IVPB SCH (09:52)
[2018-05-05] MEDS: ASPIRIN COATED 81 MG TABLET.EC PO SCH (09:52)
[2018-05-05] MEDS: NIFEdipine E.R 60 MG TABLET (UD) PO SCH (09:52)
[2018-05-05] MEDS: hydrALAZINE HCL 25 MG TABLET (FP) PO SCH ×2 (09:53→21:47)
[2018-05-05 10:58] LABS: ANION GAP 7 MMOL/L (8-16); BLOOD UREA NITROGEN 15 mg/dL (7-18); CALCIUM 8.1 mg/dL (8.5-10.1); CHLORIDE 114 mmol/L (98-107); CO2 28 mmol/L (21-32); CREATININE 1.3 mg/dL (0.55-1.3); GLUCOSE,RANDOM 175 mg/dL (74-106); POTASSIUM 3.4 mmol/L (3.5-5.1); SODIUM 149 mmol/L (136-145)
--- NOTE | 2018-05-05 11:36 | PN ---
Progress Note, [employer] - Note Progress Note: Selected Entries 05/03/18 05/03/18 05/03/18 01:44 02:53 06:00 Breakfast Lunch Supper Temperature 100.3 F H 99.6 F 100.1 F H 05/03/18 05/03/18 05/03/18 10:00 14:25 18:00 Breakfast Lunch 25% Supper Temperature 100.1 F H 100.6 F H 98.3 F 05/03/18 05/03/18 05/04/18 22:00 22:39 02:00 Breakfast Lunch Supper 25% Temperature 98.3 F 97.9 F 05/04/18 05/04/18 05/04/18 09:46 10:00 15:11 Breakfast 25% Lunch Supper Temperature 98.3 F 97.5 F L Pt still on soft, regular, refused scrambled eggs this am. Daughter requested puree yesterday. Reassessed swallowing. Pt was able to chew and swallow soft roll for me and (-) 3 oz water test. More verbal and appropriate. Better able to express herself. Continue soft diet. Assist with meals and observe tolerance.
[2018-05-05] MEDS: LIPASE/PROTEASE/AMYLASE 36,000 UNIT CAPSULE PO SCH ×2 (12:04→17:27)
--- NOTE | 2018-05-05 12:04 | PN ---
Progress Note, Physician History of Present Illness: Pt seen and examine at bedside. She is more awake and alert. She is tolerating diet but not eating much as she says she does not like the food. She denies abdominal pain. SHe denies shortness of breath. - Current Medication List Current Medications: Active Medications Acetaminophen (Tylenol -) 650 mg PO Q4H PRN PRN Reason: FEVER Last Admin: 05/04/18 14:26 Dose: 650 mg Aspirin (Ecotrin -) 81 mg PO DAILY [facility] Last Admin: 05/05/18 09:52 Dose: 81 mg Bupropion HCl (Wellbutrin Xl -) 150 mg PO DAILY [facility] Last Admin: 05/05/18 09:53 Dose: 150 mg Hydralazine HCl (Apresoline -) 25 mg PO BID [facility] Last Admin: 05/05/18 09:53 Dose: 25 mg Piperacillin Sod/Tazobactam (Sod 3.375 gm/ Dextrose) 50 mls @ 100 mls/hr IVPB Q8H-IV [facility]; Protocol Last Admin: 05/05/18 09:52 Dose: 100 mls/hr Dextrose (D5w -) 1,000 mls @ 65 mls/hr IV Q15H [facility] Last Admin: 05/05/18 05:45 Dose: 65 mls/hr Insulin Aspart (Novolog Vial Sliding Scale -) 1 vial SQ ACHS [facility]; Protocol Last Admin: 05/05/18 07:01 Dose: 2 units Nifedipine (Procardia Xl -) 60 mg PO DAILY [facility] Last Admin: 05/05/18 09:52 Dose: 60 mg Pancrelipase (Creon Dr 36,000 Units Capsule) 1 cap PO TIDCM [facility] Pantoprazole Sodium (Protonix Iv) 40 mg IVPB DAILY [facility] Last Admin: 05/05/18 09:52 Dose: 40 mg Pramipexole Dihydrochloride (Mirapex -) 1 mg PO HS [facility] Last Admin: 05/04/18 22:38 Dose: 1 mg Rifaximin (Xifaxan -) 550 mg PO TID [facility] Rosuvastatin Calcium (Crestor -) 10 mg PO HS [facility] Last Admin: 05/04/18 22:38 Dose: 10 mg Valproate Sodium (Depacon Injection -) 500 mg IVPB TID [facility] Last Admin: 05/05/18 05:46 Dose: 500 mg - Objective Vital Signs: Vital Signs Temperature 98.7 F 05/05/18 06:22 Pulse Rate 72 05/05/18 06:22 Respiratory Rate 20 05/05/18 06:22 Blood Pressure 155/69 05/05/18 06:22 O2 Sat by Pulse Oximetry (%) 96 05/04/18 20:16 Constitutional: Yes: Calm Eyes: Yes: Conjunctiva Clear HENT: Yes: Atraumatic Neck: Yes: Supple Cardiovascular: Yes: S1, S2 Respiratory: Yes: CTA Bilaterally Gastrointestinal: Yes: Normal Bowel Sounds, Soft Genitourinary: Yes: Schultz Present Musculoskeletal: Yes: WNL Edema: LLE: Trace, RLE: Trace Neurological: Yes: Oriented Psychiatric: Yes: Oriented Labs: CBC, BMP 05/04/18 06:30 05/05/18 06:30 Problem List - Problems (1) Hypernatremia Code(s): E87.0 - HYPEROSMOLALITY AND HYPERNATREMIA Assessment/Plan Current Medications Generic Name Dose Route Start Last Admin Trade Name Sandovalq PRN Reason Stop Dose Admin Acetaminophen 650 mg 05/02/18 10:04 05/04/18 14:26 Tylenol - PO 650 mg Q4H PRN Administration FEVER Aspirin 81 mg 04/28/18 10:00 05/05/18 09:52 Ecotrin - PO 81 mg DAILY [facility] Administration Bupropion HCl 150 mg 04/28/18 10:00 05/05/18 09:53 Wellbutrin Xl - PO 150 mg DAILY [facility] Administration Hydralazine HCl 25 mg 04/28/18 10:00 05/05/18 09:53 Apresoline - PO 25 mg BID [facility] Administration Piperacillin Sod/Tazobactam 50 mls @ 100 mls/hr 05/02/18 13:00 05/05/18 09:52 Sod 3.375 gm/ Dextrose IVPB 100 mls/hr Q8H-IV [facility] Administration Protocol Dextrose 1,000 mls @ 65 mls/hr 05/04/18 13:30 05/05/18 05:45 D5w - IV 65 mls/hr Q15H [facility] Administration Insulin Aspart 1 vial 04/28/18 07:00 05/05/18 07:01 Novolog Vial Sliding Scale - SQ 2 units ACHS [facility] Administration Protocol Nifedipine 60 mg 04/28/18 10:00 05/05/18 09:52 Procardia Xl - PO 60 mg DAILY [facility] Administration Pancrelipase 1 cap 05/05/18 12:00 Elaine Sweeney 36,000 Units Capsule PO TIDCM [facility] Pantoprazole Sodium 40 mg 04/28/18 10:00 05/05/18 09:52 Protonix Iv IVPB 40 mg DAILY [facility] Administration Pramipexole Dihydrochloride 1 mg 04/28/18 22:00 05/04/18 22:38 Mirapex - PO 1 mg HS [facility] Administration Rifaximin 550 mg 05/05/18 14:00 Xifaxan - PO TID [facility] Rosuvastatin Calcium 10 mg 04/28/18 22:00 05/04/18 22:38 Crestor - PO 10 mg HS [facility] Administration Valproate Sodium 500 mg 05/03/18 14:00 05/05/18 05:46 Depacon Injection - IVPB 500 mg TID [facility] Administration Impression 1. hypernatremia 2. fecal impaction 3. HLD 4. fever 5. HTN 6. DM 7. proteinuria Plan - sodium is improving - decrease rate of fluids - replace potassium - cont to monitor sodium and lytes - encourage PO intake - cxr report reviewed, improving - monitor volume status closely
[2018-05-05] MEDS ORDERED: DEXTROSE 5%-WATER - 1,000 ML IV SCH (12:05)
[2018-05-05] MEDS ORDERED: POTASSIUM CHLORIDE TABS 20 MEQ TABLET.ER (FP) PO ONE (12:30)
[2018-05-05] MEDS: RIFAXIMIN 550 MG TABLET (UD) PO SCH ×2 (13:17→21:47)
--- NOTE | 2018-05-05 14:15 | PN ---
Progress Note (short form) - Note Progress Note: Resting in NAD. More awake and interactive. No acute events overnight. Intake & Output 05/02/18 05/03/18 05/04/18 05/05/18 23:59 23:59 23:59 23:59 Intake Total 1865 524 329 0217 Output Total 1000 1100 625 200 Balance 865 -670 20 935 Weight 139 lb 3 oz 142 lb 2 oz Last Vital Signs Temp Pulse Resp BP Pulse Ox 97.6 F 73 20 178/74 H 97 05/05/18 09:00 05/05/18 09:00 05/05/18 09:00 05/05/18 09:00 05/05/18 09:00 Active Medications Acetaminophen (Tylenol -) 650 mg PO Q4H PRN PRN Reason: FEVER Last Admin: 05/04/18 14:26 Dose: 650 mg Aspirin (Ecotrin -) 81 mg PO DAILY [facility] Last Admin: 05/05/18 09:52 Dose: 81 mg Bupropion HCl (Wellbutrin Xl -) 150 mg PO DAILY [facility] Last Admin: 05/05/18 09:53 Dose: 150 mg Hydralazine HCl (Apresoline -) 25 mg PO BID [facility] Last Admin: 05/05/18 09:53 Dose: 25 mg Piperacillin Sod/Tazobactam (Sod 3.375 gm/ Dextrose) 50 mls @ 100 mls/hr IVPB Q8H-IV [facility]; Protocol Last Admin: 05/05/18 09:52 Dose: 100 mls/hr Dextrose (D5w -) 1,000 mls @ 35 mls/hr IV ASDIR [facility] Last Admin: 05/05/18 12:34 Dose: 35 mls/hr Insulin Aspart (Novolog Vial Sliding Scale -) 1 vial SQ ACHS [facility]; Protocol Last Admin: 05/05/18 12:04 Dose: 4 units Nifedipine (Procardia Xl -) 60 mg PO DAILY [facility] Last Admin: 05/05/18 09:52 Dose: 60 mg Pancrelipase (Creon Dr 36,000 Units Capsule) 1 cap PO TIDCM [facility] Last Admin: 05/05/18 12:04 Dose: 1 cap Pantoprazole Sodium (Protonix Iv) 40 mg IVPB DAILY [facility] Last Admin: 05/05/18 09:52 Dose: 40 mg Pramipexole Dihydrochloride (Mirapex -) 1 mg PO [facility] Last Admin: 05/04/18 22:38 Dose: 1 mg Rifaximin (Xifaxan -) 550 mg PO TID [facility] Last Admin: 05/05/18 13:17 Dose: 550 mg Rosuvastatin Calcium (Crestor -) 10 mg PO [facility] Last Admin: 05/04/18 22:38 Dose: 10 mg Valproate Sodium (Depacon Injection -) 500 mg IVPB TID [facility] Last Admin: 05/05/18 13:20 Dose: 500 mg Constitutional: Yes: NAD Eyes: Yes: WNL HENT: Yes: WNL Neck: Yes: WNL Cardiovascular: Yes: Regular Rate and Rhythm, S1, S2 Respiratory: Yes: Diminished at the bases Gastrointestinal: Yes: Normal Bowel Sounds, Soft Extremities: Yes: WNL Edema: No Labs: Laboratory Results - last 24 hr 05/04/18 05/04/18 05/05/18 16:38 22:35 05:43 Sodium Potassium Chloride Carbon Dioxide Anion Gap BUN Creatinine Creat Clearance w eGFR POC Glucometer 253 279 184 Random Glucose Calcium 05/05/18 05/05/18 06:30 11:42 Sodium 149 H Potassium 3.4 L Chloride 114 H Carbon Dioxide 28 Anion Gap 7 L BUN 15 Creatinine 1.3 Creat Clearance w eGFR 39.82 POC Glucometer 219 Random Glucose 175 H Calcium 8.1 L Problem List - Problems (1) JASPER (acute kidney injury) Code(s): N17.9 - ACUTE KIDNEY FAILURE, UNSPECIFIED (2) Arthritis Code(s): M19.90 - UNSPECIFIED OSTEOARTHRITIS, UNSPECIFIED SITE (3) Dementia Code(s): F03.90 - UNSPECIFIED DEMENTIA WITHOUT BEHAVIORAL DISTURBANCE (4) HLD (hyperlipidemia) Code(s): E78.5 - HYPERLIPIDEMIA, UNSPECIFIED (5) 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 (6) PNA (pneumonia) Code(s): J18.9 - PNEUMONIA, UNSPECIFIED ORGANISM (7) Abdominal pain Code(s): R10.9 - UNSPECIFIED ABDOMINAL PAIN Qualifiers: Abdominal location: unspecified location Qualified Code(s): R10.9 - Unspecified abdominal pain (8) Anemia Code(s): D64.9 - ANEMIA, UNSPECIFIED (9) Diabetes mellitus with neuropathy Code(s): E11.40 - TYPE 2 DIABETES MELLITUS WITH DIABETIC NEUROPATHY, UNSP (10) Gastroparesis due to DM Code(s): E11.43 - TYPE 2 DIABETES W DIABETIC AUTONOMIC (POLY)NEUROPATHY; K31.84 - GASTROPARESIS (11) HTN (hypertension) Code(s): I10 - ESSENTIAL (PRIMARY) HYPERTENSION (12) Leukocytosis Code(s): D72.829 - ELEVATED WHITE BLOOD CELL COUNT, UNSPECIFIED (13) Parkinson disease Code(s): G20 - PARKINSON'S DISEASE Assessment/Plan IMP BILATERAL PLEURAL EFFUSIONS/CONSOLIDATIONS ? CHF,? PNEUMONIA,?ATELECTASIS ABD PAIN ? COLITIS IMPROVING DM HTN DEMENTIA PARKINSONS HLD OSTEOARTHRITIS JASPER IMPROVED MYOCLONIC JERKS ?TOXIC-METABOLIC ENCEPHALOPATHY IMPROVING HYPERNATREMIA PLAN ABX PER ID O2 NEEDED MONITOR LYTES,NA,CBC ASPIRATION PRECAUTIONS DR EMMANUEL
--- NOTE | 2018-05-05 14:45 | PN ---
Progress Note, Physician Chief Complaint: patient seen in bed awake - Current Medication List Current Medications: Active Medications Acetaminophen (Tylenol -) 650 mg PO Q4H PRN PRN Reason: FEVER Last Admin: 05/04/18 14:26 Dose: 650 mg Aspirin (Ecotrin -) 81 mg PO DAILY [facility] Last Admin: 05/05/18 09:52 Dose: 81 mg Bupropion HCl (Wellbutrin Xl -) 150 mg PO DAILY [facility] Last Admin: 05/05/18 09:53 Dose: 150 mg Hydralazine HCl (Apresoline -) 25 mg PO BID [facility] Last Admin: 05/05/18 09:53 Dose: 25 mg Piperacillin Sod/Tazobactam (Sod 3.375 gm/ Dextrose) 50 mls @ 100 mls/hr IVPB Q8H-IV [facility]; Protocol Last Admin: 05/05/18 09:52 Dose: 100 mls/hr Dextrose (D5w -) 1,000 mls @ 35 mls/hr IV ASDIR [facility] Last Admin: 05/05/18 12:34 Dose: 35 mls/hr Insulin Aspart (Novolog Vial Sliding Scale -) 1 vial SQ ACHS [facility]; Protocol Last Admin: 05/05/18 12:04 Dose: 4 units Nifedipine (Procardia Xl -) 60 mg PO DAILY [facility] Last Admin: 05/05/18 09:52 Dose: 60 mg Pancrelipase (Creon Dr 36,000 Units Capsule) 1 cap PO TIDCM [facility] Last Admin: 05/05/18 12:04 Dose: 1 cap Pantoprazole Sodium (Protonix Iv) 40 mg IVPB DAILY [facility] Last Admin: 05/05/18 09:52 Dose: 40 mg Pramipexole Dihydrochloride (Mirapex -) 1 mg PO HS [facility] Last Admin: 05/04/18 22:38 Dose: 1 mg Rifaximin (Xifaxan -) 550 mg PO TID [facility] Last Admin: 05/05/18 13:17 Dose: 550 mg Rosuvastatin Calcium (Crestor -) 10 mg PO HS [facility] Last Admin: 05/04/18 22:38 Dose: 10 mg Valproate Sodium (Depacon Injection -) 500 mg IVPB TID [facility] Last Admin: 05/05/18 13:20 Dose: 500 mg - Objective Vital Signs: Vital Signs Temperature 97.7 F 05/05/18 14:20 Pulse Rate 70 05/05/18 14:20 Respiratory Rate 20 05/05/18 14:20 Blood Pressure 121/47 L 05/05/18 14:20 O2 Sat by Pulse Oximetry (%) 97 05/05/18 09:00 Constitutional: Yes: Calm Cardiovascular: Yes: Regular Rate and Rhythm, S1, S2 Respiratory: Yes: CTA Bilaterally Gastrointestinal: Yes: Normal Bowel Sounds, Soft Edema: No Labs: CBC, BMP 05/04/18 06:30 05/05/18 06:30 Problem List - Problems (1) Abdominal pain Assessment/Plan: gi on board IBS creon and rifaxamin Code(s): R10.9 - UNSPECIFIED ABDOMINAL PAIN Qualifiers: Abdominal location: unspecified location Qualified Code(s): R10.9 - Unspecified abdominal pain (2) Nausea and vomiting Assessment/Plan: PPI Code(s): R11.2 - NAUSEA WITH VOMITING, UNSPECIFIED Qualifiers: Vomiting type: unspecified Vomiting Intractability: intractable Qualified Code(s): R11.2 - Nausea with vomiting, unspecified (3) Hypokalemia Assessment/Plan: potassium repleted check magnesium Code(s): E87.6 - HYPOKALEMIA (4) Metabolic encephalopathy Assessment/Plan: iv abx zosyn wbc trending down Code(s): G93.41 - METABOLIC ENCEPHALOPATHY
[2018-05-05 15:26] VITALS: BMI 24.3
--- NOTE | 2018-05-05 15:53 | PN ---
Progress Note, Physician Chief Complaint: Cardiology follow up. Telem NSR No dyspnea. History of Present Illness: The patient is a 78-year-old female with a history of diabetes, hypertension, hyperlipidemia, Parkinson's disease, dementia, diverticulosis, GI bleed, chronic kidney disease, now admitted for fecal impaction. Treated for presumed HAP on Zosyn - Current Medication List Current Medications: Active Medications Acetaminophen (Tylenol -) 650 mg PO Q4H PRN PRN Reason: FEVER Last Admin: 05/04/18 14:26 Dose: 650 mg Aspirin (Ecotrin -) 81 mg PO DAILY [facility] Last Admin: 05/05/18 09:52 Dose: 81 mg Bupropion HCl (Wellbutrin Xl -) 150 mg PO DAILY [facility] Last Admin: 05/05/18 09:53 Dose: 150 mg Hydralazine HCl (Apresoline -) 25 mg PO BID [facility] Last Admin: 05/05/18 09:53 Dose: 25 mg Piperacillin Sod/Tazobactam (Sod 3.375 gm/ Dextrose) 50 mls @ 100 mls/hr IVPB Q8H-IV [facility]; Protocol Last Admin: 05/05/18 09:52 Dose: 100 mls/hr Dextrose (D5w -) 1,000 mls @ 35 mls/hr IV ASDIR [facility] Last Admin: 05/05/18 12:34 Dose: 35 mls/hr Insulin Aspart (Novolog Vial Sliding Scale -) 1 vial SQ ACHS [facility]; Protocol Last Admin: 05/05/18 12:04 Dose: 4 units Nifedipine (Procardia Xl -) 60 mg PO DAILY [facility] Last Admin: 05/05/18 09:52 Dose: 60 mg Pancrelipase (Creon Dr 36,000 Units Capsule) 1 cap PO TIDCM [facility] Last Admin: 05/05/18 12:04 Dose: 1 cap Pantoprazole Sodium (Protonix Iv) 40 mg IVPB DAILY [facility] Last Admin: 05/05/18 09:52 Dose: 40 mg Pramipexole Dihydrochloride (Mirapex -) 1 mg PO HS [facility] Last Admin: 05/04/18 22:38 Dose: 1 mg Rifaximin (Xifaxan -) 550 mg PO TID [facility] Last Admin: 05/05/18 13:17 Dose: 550 mg Rosuvastatin Calcium (Crestor -) 10 mg PO HS [facility] Last Admin: 05/04/18 22:38 Dose: 10 mg Valproate Sodium (Depacon Injection -) 500 mg IVPB TID [facility] Last Admin: 05/05/18 13:20 Dose: 500 mg - Objective Vital Signs: Vital Signs Temperature 97.7 F 05/05/18 14:20 Pulse Rate 70 05/05/18 14:20 Respiratory Rate 20 05/05/18 14:20 Blood Pressure 121/47 L 05/05/18 14:20 O2 Sat by Pulse Oximetry (%) 97 05/05/18 09:00 Constitutional: Yes: Well Nourished, No Distress Eyes: Yes: Conjunctiva Clear HENT: Yes: Atraumatic, Normocephalic Neck: Yes: Supple, Trachea Midline Cardiovascular: Yes: Regular Rate and Rhythm, S1, S2. No: JVD Respiratory: Yes: CTA Bilaterally (decreased basilar BS) Gastrointestinal: Yes: Normal Bowel Sounds Edema: No Labs: CBC, BMP 05/04/18 06:30 05/05/18 06:30 Problem List - Problems (1) JASPER (acute kidney injury) Code(s): N17.9 - ACUTE KIDNEY FAILURE, UNSPECIFIED (2) Hypernatremia Code(s): E87.0 - HYPEROSMOLALITY AND HYPERNATREMIA (3) Chronic edema Code(s): R60.9 - EDEMA, UNSPECIFIED Assessment/Plan The patient is a 78-year-old female with a history of diabetes, hypertension, hyperlipidemia, Parkinson's disease, dementia, diverticulosis, GI bleed, chronic kidney disease, now admitted for fecal impaction. Treated for presumed HAP on Zosyn CT with bilateral pleural effusions, BNP 5K clinically dry. Echo with normal LV function. She has poor PO intake but seems to have no respiratory complaints. Albumin 2.9 Hypernatermia and pleural effusion improved. No signs of congestive heart failure. Hold lasix. Will see as needed.
--- NOTE | 2018-05-05 19:12 | PN ---
Progress Note, Physician History of Present Illness: AWAKE, ALERT ORIENTED CONVERSANT ANSWERS APPROPRIATELY OFFERS NO COMPLAINTS TEMPS DOWN AFEBRILE - Current Medication List Current Medications: Active Medications Acetaminophen (Tylenol -) 650 mg PO Q4H PRN PRN Reason: FEVER Last Admin: 05/04/18 14:26 Dose: 650 mg Aspirin (Ecotrin -) 81 mg PO DAILY [facility] Last Admin: 05/05/18 09:52 Dose: 81 mg Bupropion HCl (Wellbutrin Xl -) 150 mg PO DAILY [facility] Last Admin: 05/05/18 09:53 Dose: 150 mg Hydralazine HCl (Apresoline -) 25 mg PO BID [facility] Last Admin: 05/05/18 09:53 Dose: 25 mg Piperacillin Sod/Tazobactam (Sod 3.375 gm/ Dextrose) 50 mls @ 100 mls/hr IVPB Q8H-IV [facility]; Protocol Last Admin: 05/05/18 17:26 Dose: 100 mls/hr Dextrose (D5w -) 1,000 mls @ 35 mls/hr IV ASDIR [facility] Last Admin: 05/05/18 12:34 Dose: 35 mls/hr Insulin Aspart (Novolog Vial Sliding Scale -) 1 vial SQ ACHS [facility]; Protocol Last Admin: 05/05/18 17:26 Dose: 2 units Nifedipine (Procardia Xl -) 60 mg PO DAILY [facility] Last Admin: 05/05/18 09:52 Dose: 60 mg Pancrelipase (Creon Dr 36,000 Units Capsule) 1 cap PO TIDCM [facility] Last Admin: 05/05/18 17:27 Dose: 1 cap Pantoprazole Sodium (Protonix Iv) 40 mg IVPB DAILY [facility] Last Admin: 05/05/18 09:52 Dose: 40 mg Pramipexole Dihydrochloride (Mirapex -) 1 mg PO HS [facility] Last Admin: 05/04/18 22:38 Dose: 1 mg Rifaximin (Xifaxan -) 550 mg PO TID [facility] Last Admin: 05/05/18 13:17 Dose: 550 mg Rosuvastatin Calcium (Crestor -) 10 mg PO HS [facility] Last Admin: 05/04/18 22:38 Dose: 10 mg Valproate Sodium (Depacon Injection -) 500 mg IVPB TID [facility] Last Admin: 05/05/18 13:20 Dose: 500 mg - Objective Vital Signs: Vital Signs Temperature 97.7 F 05/05/18 14:20 Pulse Rate 70 05/05/18 14:20 Respiratory Rate 20 05/05/18 14:20 Blood Pressure 121/47 L 05/05/18 14:20 O2 Sat by Pulse Oximetry (%) 97 05/05/18 09:00 Constitutional: Yes: No Distress Cardiovascular: Yes: Regular Rate and Rhythm, S1, S2 Respiratory: Yes: CTA Bilaterally Gastrointestinal: Yes: Normal Bowel Sounds, Soft Edema: Yes Edema: LUE: 1+, RUE: 1+, LLE: 1+, RLE: 1+ Labs: CBC, BMP 05/04/18 06:30 05/05/18 06:30 Assessment/Plan ABDOMINAL PAIN SYNDROME IMPROVED BIBASILAR PNEUMONIA ? HCAP R/O TOXIC METABOLIC ENCEPHALOPATHY IMPROVED CONTINUE EMPIRIC ZOSYN
[2018-05-05] MEDS: ROSUVASTATIN CA 10 MG TABLET (FP) PO SCH (21:47)
[2018-05-05] MEDS: PRAMIPEXOLE DIHYDROCHLORIDE 1 MG TABLET PO SCH (21:48)
[2018-05-06] MEDS ORDERED: DEXTROSE 5%-WATER - 50 ML IVPB ONE ×2 (01:20→09:26)
[2018-05-06] MEDS ORDERED: PIPERACILLIN/TAZOBACTAM 3.375 GM VIAL IVPB ONE ×2 (01:20→09:26)
[2018-05-06] MEDS: PIPERACILLIN/TAZOB 3.375 GM 3.375 GM in DEXTROSE 5%-WATER - 50 ML IVPB SCH ×2 (01:27→09:39)
[2018-05-06] MEDS ORDERED: PT OWN MED DRAWER 7, Y5N ONE ×5 (05:23→21:22)
[2018-05-06] MEDS: VALPROATE SODIUM 500 MG/5 ML VIAL IVPB SCH ×2 (05:29→14:53)
[2018-05-06] MEDS: RIFAXIMIN 550 MG TABLET (UD) PO SCH ×3 (06:45→21:41)
[2018-05-06] MEDS: INSULIN SLIDING SCALE (NOVOLOG) 1 VIAL SQ SCH ×5 (06:45→21:45)
[2018-05-06] MEDS ORDERED: INSULIN SLIDING SCALE (NOVOLOG) 1 VIAL SQ ONE (07:09)
[2018-05-06] MEDS: LIPASE/PROTEASE/AMYLASE 36,000 UNIT CAPSULE PO SCH ×3 (08:30→16:57)
[2018-05-06] MEDS: NIFEdipine E.R 60 MG TABLET (UD) PO SCH (09:39)
[2018-05-06] MEDS: hydrALAZINE HCL 25 MG TABLET (FP) PO SCH ×2 (09:39→21:41)
[2018-05-06] MEDS: ASPIRIN COATED 81 MG TABLET.EC PO SCH (09:39)
[2018-05-06] MEDS: PANTOPRAZOLE SODIUM 40 MG VIAL IVPB SCH (09:39)
--- NOTE | 2018-05-06 10:59 | PN ---
Progress Note, Physician History of Present Illness: PULMONARY AWAKE,ALERT,COMFORTABLE,-RESP DISTRESS - Current Medication List Current Medications: Active Medications Acetaminophen (Tylenol -) 650 mg PO Q4H PRN PRN Reason: FEVER Last Admin: 05/04/18 14:26 Dose: 650 mg Aspirin (Ecotrin -) 81 mg PO DAILY [facility] Last Admin: 05/06/18 09:39 Dose: 81 mg Bupropion HCl (Wellbutrin Xl -) 150 mg PO DAILY [facility] Last Admin: 05/06/18 09:39 Dose: 150 mg Hydralazine HCl (Apresoline -) 25 mg PO BID [facility] Last Admin: 05/06/18 09:39 Dose: 25 mg Piperacillin Sod/Tazobactam (Sod 3.375 gm/ Dextrose) 50 mls @ 100 mls/hr IVPB Q8H-IV [facility]; Protocol Last Admin: 05/06/18 09:39 Dose: 100 mls/hr Dextrose (D5w -) 1,000 mls @ 35 mls/hr IV ASDIR [facility] Last Admin: 05/05/18 12:34 Dose: 35 mls/hr Insulin Aspart (Novolog Vial Sliding Scale -) 1 vial SQ ACHS [facility]; Protocol Last Admin: 05/06/18 06:45 Dose: 2 units Nifedipine (Procardia Xl -) 60 mg PO DAILY [facility] Last Admin: 05/06/18 09:39 Dose: 60 mg Pancrelipase (Creon Dr 36,000 Units Capsule) 1 cap PO TIDCM [facility] Last Admin: 05/06/18 08:30 Dose: 1 cap Pantoprazole Sodium (Protonix Iv) 40 mg IVPB DAILY [facility] Last Admin: 05/06/18 09:39 Dose: 40 mg Pramipexole Dihydrochloride (Mirapex -) 1 mg PO HS [facility] Last Admin: 05/05/18 21:48 Dose: 1 mg Rifaximin (Xifaxan -) 550 mg PO TID [facility] Last Admin: 05/06/18 06:45 Dose: 550 mg Rosuvastatin Calcium (Crestor -) 10 mg PO HS [facility] Last Admin: 05/05/18 21:47 Dose: 10 mg Valproate Sodium (Depacon Injection -) 500 mg IVPB TID [facility] Last Admin: 05/06/18 05:29 Dose: 500 mg - Objective Vital Signs: Vital Signs Temperature 97.7 F 05/06/18 05:28 Pulse Rate 75 05/06/18 05:28 Respiratory Rate 16 05/06/18 05:28 Blood Pressure 155/65 05/06/18 05:28 O2 Sat by Pulse Oximetry (%) 97 05/05/18 21:00 Constitutional: Yes: Well Nourished, Calm Eyes: Yes: WNL HENT: Yes: WNL Neck: Yes: WNL Cardiovascular: Yes: Regular Rate and Rhythm, S1, S2 Respiratory: Yes: Diminished Gastrointestinal: Yes: Normal Bowel Sounds, Soft Extremities: Yes: WNL Edema: No Problem List - Problems (1) JASPER (acute kidney injury) Code(s): N17.9 - ACUTE KIDNEY FAILURE, UNSPECIFIED (2) Arthritis Code(s): M19.90 - UNSPECIFIED OSTEOARTHRITIS, UNSPECIFIED SITE (3) Dementia Code(s): F03.90 - UNSPECIFIED DEMENTIA WITHOUT BEHAVIORAL DISTURBANCE (4) HLD (hyperlipidemia) Code(s): E78.5 - HYPERLIPIDEMIA, UNSPECIFIED (5) 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 (6) PNA (pneumonia) Code(s): J18.9 - PNEUMONIA, UNSPECIFIED ORGANISM (7) Abdominal pain Code(s): R10.9 - UNSPECIFIED ABDOMINAL PAIN Qualifiers: Abdominal location: unspecified location Qualified Code(s): R10.9 - Unspecified abdominal pain (8) Anemia Code(s): D64.9 - ANEMIA, UNSPECIFIED (9) Diabetes mellitus with neuropathy Code(s): E11.40 - TYPE 2 DIABETES MELLITUS WITH DIABETIC NEUROPATHY, UNSP (10) Gastroparesis due to DM Code(s): E11.43 - TYPE 2 DIABETES W DIABETIC AUTONOMIC (POLY)NEUROPATHY; K31.84 - GASTROPARESIS (11) HTN (hypertension) Code(s): I10 - ESSENTIAL (PRIMARY) HYPERTENSION (12) Leukocytosis Code(s): D72.829 - ELEVATED WHITE BLOOD CELL COUNT, UNSPECIFIED (13) Parkinson disease Code(s): G20 - PARKINSON'S DISEASE Assessment/Plan Assessment/Plan IMP BILATERAL PLEURAL EFFUSIONS ABD PAIN IMPROVED ALTERED MENTAL STATUS IMPROVED DM HTN DEMENTIA PARKINSONS HLD OSTEOARTHRITIS JASPER IMPROVED MYOCLONIC JERKS ?TOXIC-METABOLIC ENCEPHALOPATHY IMPROVED HYPERNATREMIA IMPROVING PLAN ABX PER ID O2 NEEDED MONITOR LYTES,NA,CBC F/U CHEST X-RAYS DR CAMPA Problem List - Problems (1) JASPER (acute kidney injury) Code(s): N17.9 - ACUTE KIDNEY FAILURE, UNSPECIFIED (2) Arthritis Code(s): M19.90 - UNSPECIFIED OSTEOARTHRITIS, UNSPECIFIED SITE (3) Dementia Code(s): F03.90 - UNSPECIFIED DEMENTIA WITHOUT BEHAVIORAL DISTURBANCE (4) HLD (hyperlipidemia) Code(s): E78.5 - HYPERLIPIDEMIA, UNSPECIFIED (5) 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 (6) PNA (pneumonia) Code(s): J18.9 - PNEUMONIA, UNSPECIFIED ORGANISM (7) Abdominal pain Code(s): R10.9 - UNSPECIFIED ABDOMINAL PAIN Qualifiers: Abdominal location: unspecified location Qualified Code(s): R10.9 - Unspecified abdominal pain (8) Anemia Code(s): D64.9 - ANEMIA, UNSPECIFIED (9) Diabetes mellitus with neuropathy Code(s): E11.40 - TYPE 2 DIABETES MELLITUS WITH DIABETIC NEUROPATHY, UNSP (10) Gastroparesis due to DM Code(s): E11.43 - TYPE 2 DIABETES W DIABETIC AUTONOMIC (POLY)NEUROPATHY; K31.84 - GASTROPARESIS (11) HTN (hypertension) Code(s): I10 - ESSENTIAL (PRIMARY) HYPERTENSION (12) Leukocytosis Code(s): D72.829 - ELEVATED WHITE BLOOD CELL COUNT, UNSPECIFIED (13) Parkinson disease Code(s): G20 - PARKINSON'S DISEASE
--- NOTE | 2018-05-06 11:51 | PN ---
Progress Note, Physician Chief Complaint: patient seen and examined awake alert no fever - Current Medication List Current Medications: Active Medications Acetaminophen (Tylenol -) 650 mg PO Q4H PRN PRN Reason: FEVER Last Admin: 05/04/18 14:26 Dose: 650 mg Aspirin (Ecotrin -) 81 mg PO DAILY [facility] Last Admin: 05/06/18 09:39 Dose: 81 mg Bupropion HCl (Wellbutrin Xl -) 150 mg PO DAILY [facility] Last Admin: 05/06/18 09:39 Dose: 150 mg Hydralazine HCl (Apresoline -) 25 mg PO BID [facility] Last Admin: 05/06/18 09:39 Dose: 25 mg Piperacillin Sod/Tazobactam (Sod 3.375 gm/ Dextrose) 50 mls @ 100 mls/hr IVPB Q8H-IV [facility]; Protocol Last Admin: 05/06/18 09:39 Dose: 100 mls/hr Insulin Aspart (Novolog Vial Sliding Scale -) 1 vial SQ ACHS [facility]; Protocol Last Admin: 05/06/18 06:45 Dose: 2 units Nifedipine (Procardia Xl -) 60 mg PO DAILY [facility] Last Admin: 05/06/18 09:39 Dose: 60 mg Pancrelipase (Creon Dr 36,000 Units Capsule) 1 cap PO TIDCM [facility] Last Admin: 05/06/18 08:30 Dose: 1 cap Pantoprazole Sodium (Protonix Iv) 40 mg IVPB DAILY [facility] Last Admin: 05/06/18 09:39 Dose: 40 mg Pramipexole Dihydrochloride (Mirapex -) 1 mg PO HS [facility] Last Admin: 05/05/18 21:48 Dose: 1 mg Rifaximin (Xifaxan -) 550 mg PO TID [facility] Last Admin: 05/06/18 06:45 Dose: 550 mg Rosuvastatin Calcium (Crestor -) 10 mg PO HS [facility] Last Admin: 05/05/18 21:47 Dose: 10 mg Valproate Sodium (Depacon Injection -) 500 mg IVPB TID [facility] Last Admin: 05/06/18 05:29 Dose: 500 mg - Objective Vital Signs: Vital Signs Temperature 97.7 F 05/06/18 05:28 Pulse Rate 75 05/06/18 05:28 Respiratory Rate 16 05/06/18 05:28 Blood Pressure 155/65 05/06/18 05:28 O2 Sat by Pulse Oximetry (%) 97 05/05/18 21:00 Constitutional: Yes: Calm Cardiovascular: Yes: Regular Rate and Rhythm, S1, S2 Respiratory: Yes: Diminished Gastrointestinal: Yes: Normal Bowel Sounds, Soft Edema: Yes Neurological: Yes: Alert, Oriented Labs: CBC, BMP 05/04/18 06:30 05/05/18 06:30 Problem List - Problems (1) Metabolic encephalopathy Assessment/Plan: iv abx zosyn for PNA cxr shows better aeration in lungs wbc trending down Code(s): G93.41 - METABOLIC ENCEPHALOPATHY (2) Abdominal pain Assessment/Plan: now resolved IBS creon and rifaxamin Code(s): R10.9 - UNSPECIFIED ABDOMINAL PAIN Qualifiers: Abdominal location: unspecified location Qualified Code(s): R10.9 - Unspecified abdominal pain (3) Nausea and vomiting Assessment/Plan: resolved PPI po Code(s): R11.2 - NAUSEA WITH VOMITING, UNSPECIFIED Qualifiers: Vomiting type: unspecified Vomiting Intractability: intractable Qualified Code(s): R11.2 - Nausea with vomiting, unspecified (4) Hypokalemia Assessment/Plan: potassium repleted check magnesium bmp ordered for today Code(s): E87.6 - HYPOKALEMIA (5) Myoclonic jerking Assessment/Plan: eeg done report pending on iv valproic acid neuro on board Code(s): G25.3 - MYOCLONUS Assessment/Plan tried calling daughter cell pone number on file is incorrect called home phone no answering machine,
--- NOTE | 2018-05-06 12:38 | PN ---
Progress Note, Physician History of Present Illness: Pt seen and examined at bedside. She is awake and appears comfortable. She denies shortness of breath. She is tolerating diet. She denies abdominal pain. - Current Medication List Current Medications: Active Medications Acetaminophen (Tylenol -) 650 mg PO Q4H PRN PRN Reason: FEVER Last Admin: 05/04/18 14:26 Dose: 650 mg Aspirin (Ecotrin -) 81 mg PO DAILY [facility] Last Admin: 05/06/18 09:39 Dose: 81 mg Bupropion HCl (Wellbutrin Xl -) 150 mg PO DAILY [facility] Last Admin: 05/06/18 09:39 Dose: 150 mg Hydralazine HCl (Apresoline -) 25 mg PO BID [facility] Last Admin: 05/06/18 09:39 Dose: 25 mg Piperacillin Sod/Tazobactam (Sod 3.375 gm/ Dextrose) 50 mls @ 100 mls/hr IVPB Q8H-IV [facility]; Protocol Last Admin: 05/06/18 09:39 Dose: 100 mls/hr Insulin Aspart (Novolog Vial Sliding Scale -) 1 vial SQ ACHS [facility]; Protocol Last Admin: 05/06/18 06:45 Dose: 2 units Nifedipine (Procardia Xl -) 60 mg PO DAILY [facility] Last Admin: 05/06/18 09:39 Dose: 60 mg Pancrelipase (Creon Dr 36,000 Units Capsule) 1 cap PO TIDCM [facility] Last Admin: 05/06/18 08:30 Dose: 1 cap Pantoprazole Sodium (Protonix -) 40 mg PO DAILY [facility] Pramipexole Dihydrochloride (Mirapex -) 1 mg PO HS [facility] Last Admin: 05/05/18 21:48 Dose: 1 mg Rifaximin (Xifaxan -) 550 mg PO TID [facility] Last Admin: 05/06/18 06:45 Dose: 550 mg Rosuvastatin Calcium (Crestor -) 10 mg PO HS [facility] Last Admin: 05/05/18 21:47 Dose: 10 mg Valproate Sodium (Depacon Injection -) 500 mg IVPB TID [facility] Last Admin: 05/06/18 05:29 Dose: 500 mg - Objective Vital Signs: Vital Signs Temperature 97.7 F 05/06/18 05:28 Pulse Rate 75 05/06/18 05:28 Respiratory Rate 16 05/06/18 05:28 Blood Pressure 155/65 05/06/18 05:28 O2 Sat by Pulse Oximetry (%) 97 05/05/18 21:00 Constitutional: Yes: Calm Eyes: Yes: Conjunctiva Clear HENT: Yes: Atraumatic Neck: Yes: Supple Cardiovascular: Yes: S1, S2 Respiratory: Yes: CTA Bilaterally Gastrointestinal: Yes: Soft Genitourinary: Yes: Schultz Present Musculoskeletal: Yes: WNL Edema: Yes Edema: LUE: Trace, RUE: Trace, LLE: Trace, RLE: Trace Neurological: Yes: Oriented Psychiatric: Yes: Oriented Labs: CBC, BMP 05/04/18 06:30 05/05/18 06:30 Problem List - Problems (1) Hypernatremia Code(s): E87.0 - HYPEROSMOLALITY AND HYPERNATREMIA Assessment/Plan Current Medications Generic Name Dose Route Start Last Admin Trade Name Freq PRN Reason Stop Dose Admin Acetaminophen 650 mg 05/02/18 10:04 05/04/18 14:26 Tylenol - PO 650 mg Q4H PRN Administration FEVER Aspirin 81 mg 04/28/18 10:00 05/06/18 09:39 Ecotrin - PO 81 mg DAILY JOYCE Administration Bupropion HCl 150 mg 04/28/18 10:00 05/06/18 09:39 Wellbutrin Xl - PO 150 mg DAILY [facility] Administration Hydralazine HCl 25 mg 04/28/18 10:00 05/06/18 09:39 Apresoline - PO 25 mg BID [facility] Administration Piperacillin Sod/Tazobactam 50 mls @ 100 mls/hr 05/02/18 13:00 05/06/18 09:39 Sod 3.375 gm/ Dextrose IVPB 100 mls/hr Q8H-IV [facility] Administration Protocol Insulin Aspart 1 vial 04/28/18 07:00 05/06/18 06:45 Novolog Vial Sliding Scale - SQ 2 units ACHS [facility] Administration Protocol Nifedipine 60 mg 04/28/18 10:00 05/06/18 09:39 Procardia Xl - PO 60 mg DAILY [facility] Administration Pancrelipase 1 cap 05/05/18 12:00 05/06/18 08:30 Credyana Sweeney 36,000 Units Capsule PO 1 cap TIDCM [facility] Administration Pantoprazole Sodium 40 mg 05/07/18 10:00 Protonix - PO DAILY [facility] Pramipexole Dihydrochloride 1 mg 04/28/18 22:00 05/05/18 21:48 Mirapex - PO 1 mg HS [facility] Administration Rifaximin 550 mg 05/05/18 14:00 05/06/18 06:45 Xifaxan - PO 550 mg TID [facility] Administration Rosuvastatin Calcium 10 mg 04/28/18 22:00 05/05/18 21:47 Crestor - PO 10 mg HS [facility] Administration Valproate Sodium 500 mg 05/03/18 14:00 05/06/18 05:29 Depacon Injection - IVPB 500 mg TID [facility] Administration Impression 1. hypernatremia 2. fecal impaction 3. HLD 4. fever 5. HTN 6. DM 7. proteinuria Plan - sodium has been improving - check bmp to evaluate sodium - hold d5w for now - monitor lytes - pt tolerating diet - mental status markedly improved - monitor volume status closely
[2018-05-06 13:17] LABS: BASO % 0.5 % (0-2.0); EOS % 5.9 % (0-4.5); HEMATOCRIT 29.1 % (32.4-45.2); HEMOGLOBIN 9.8 GM/dL (10.7-15.3); LYMPH % 11.4 % (8-40); MCH 28.5 pg (25.7-33.7); MCHC 33.8 g/dl (32.0-36.0); MEAN CELL VOLUME 84.4 fl (80-96); MEAN PLT VOLUME 8.2 fl (7.5-11.1); MONO % 6.1 % (3.8-10.2); NEUT % 76.1 % (42.8-82.8); PLATELET COUNT 438 K/MM3 (134-434); RBC 3.45 M/mm3 (3.60-5.2); RDW 15.2 % (11.6-15.6); WHITE BLOOD COUNT 7.7 K/mm3 (4.0-10.0)
--- NOTE | 2018-05-06 13:30 | PN ---
Progress Note, Physician History of Present Illness: AWAKE, ALERT ORIENTED CONVERSANT ANSWERS APPROPRIATELY OFFERS NO COMPLAINTS TEMPS DOWN AFEBRILE WBC WNL CULTURES NEGATIVE - Current Medication List Current Medications: Active Medications Acetaminophen (Tylenol -) 650 mg PO Q4H PRN PRN Reason: FEVER Last Admin: 05/04/18 14:26 Dose: 650 mg Aspirin (Ecotrin -) 81 mg PO DAILY [facility] Last Admin: 05/06/18 09:39 Dose: 81 mg Bupropion HCl (Wellbutrin Xl -) 150 mg PO DAILY [facility] Last Admin: 05/06/18 09:39 Dose: 150 mg Hydralazine HCl (Apresoline -) 25 mg PO BID [facility] Last Admin: 05/06/18 09:39 Dose: 25 mg Piperacillin Sod/Tazobactam (Sod 3.375 gm/ Dextrose) 50 mls @ 100 mls/hr IVPB Q8H-IV [facility]; Protocol Last Admin: 05/06/18 09:39 Dose: 100 mls/hr Insulin Aspart (Novolog Vial Sliding Scale -) 1 vial SQ ACHS [facility]; Protocol Last Admin: 05/06/18 12:37 Dose: 8 units Nifedipine (Procardia Xl -) 60 mg PO DAILY [facility] Last Admin: 05/06/18 09:39 Dose: 60 mg Pancrelipase (Creon Dr 36,000 Units Capsule) 1 cap PO TIDCM [facility] Last Admin: 05/06/18 12:40 Dose: 1 cap Pantoprazole Sodium (Protonix -) 40 mg PO DAILY [facility] Pramipexole Dihydrochloride (Mirapex -) 1 mg PO HS [facility] Last Admin: 05/05/18 21:48 Dose: 1 mg Rifaximin (Xifaxan -) 550 mg PO TID [facility] Last Admin: 05/06/18 06:45 Dose: 550 mg Rosuvastatin Calcium (Crestor -) 10 mg PO HS [facility] Last Admin: 05/05/18 21:47 Dose: 10 mg Valproate Sodium (Depacon Injection -) 500 mg IVPB TID [facility] Last Admin: 05/06/18 05:29 Dose: 500 mg - Objective Vital Signs: Vital Signs Temperature 97.7 F 05/06/18 05:28 Pulse Rate 75 05/06/18 05:28 Respiratory Rate 16 05/06/18 05:28 Blood Pressure 155/65 05/06/18 05:28 O2 Sat by Pulse Oximetry (%) 97 05/05/18 21:00 Constitutional: Yes: No Distress Eyes: Yes: Conjunctiva Clear Cardiovascular: Yes: Regular Rate and Rhythm, S1, S2 Respiratory: Yes: Diminished Gastrointestinal: Yes: Normal Bowel Sounds, Soft. No: Tenderness Edema: Yes Edema: LLE: 1+, RLE: 1+ Labs: CBC, BMP 05/06/18 12:57 Assessment/Plan ABDOMINAL PAIN SYNDROME IMPROVED BIBASILAR PNEUMONIA ? HCAP R/O TOXIC METABOLIC ENCEPHALOPATHY IMPROVED SUBSTITUTE PO AUGMENTIN
[2018-05-06 13:45] LABS: ANION GAP 8 MMOL/L (8-16); BLOOD UREA NITROGEN 13 mg/dL (7-18); CALCIUM 7.8 mg/dL (8.5-10.1); CHLORIDE 108 mmol/L (98-107); CO2 26 mmol/L (21-32); CREATININE 1.3 mg/dL (0.55-1.3); POTASSIUM 3.7 mmol/L (3.5-5.1); SODIUM 142 mmol/L (136-145)
[2018-05-06 13:47] LABS: GLUCOSE,RANDOM 340 mg/dL (74-106)
--- NOTE | 2018-05-06 15:24 | PN ---
Progress Note, [employer] - Note Progress Note: Doing well with improved communication, mentation and swallowing. Reassessed swallowing. Pt was able to chew and swallow soft roll for me and (-) 3 oz water test. More verbal and appropriate. Better able to express herself. Please upgrade to soft diet. Assist with meals and observe tolerance.
[2018-05-06] MEDS: AMOX TR/POT CLAV 500MG/125MG TABLETS (FP) PO SCH (16:55)
--- NOTE | 2018-05-06 17:01 | PN ---
Progress Note (short form) - Note Progress Note: 78 year old female history of IDDM, HTN,HLD,Anxiety, PD( on mirapex), Peripheral neuropathy, Dementia. Patient has come to hospital for Abdominal pain and fecal impaction.She is found to have intermittent whole body shaking . There has not been any new focal neurological symptoms, except she has been confused . Her initial ct had was unmremarkable. PMH Dementia, IDDM,HTN,HLD,PD,Divertoculosis, Osteoarthritis. Patient has not had any jerky motion , She also had bowel movement. NEUROLOGICAL Examination Alert oriented x 2 ( she says today is apr 2018 and told me her name and she told me she is in [place].), she is not able to engage in conversation eomi, pupils reactive, no face asymmetry moving all ext sensation is noraml reflex are generalized diminished Recurrent whole body jerky motion were noticed. ct head no acute findings Assessment/Plan 1.sudden abnormal jerky motions seems to be Myoclonic jerks, seems to be secondary to metabolic encphalopathy. ( hypernatremia, hyper glycemia , GI issues). mental status has improved and jerky motion has improved Plan: I would reduce dose of depakote to 500 mg po bid and repeat eeg if patient still in hospital, otherwise can be done outpatient - Do not need to hold discharge for EEG - Continue supportive care Thanking yo so much Deion Florez MD
[2018-05-06] MEDS: ACETAMINOPHEN 325 MG TABLET (FP) PO PRN (19:21)
--- NOTE | 2018-05-06 20:12 | PN ---
Progress Note (short form) - Note Progress Note: NEUROLOGY PROGRESS: Asked to see by daughter due to my [facility]ci relationship and management of this 78 yo woman with advanced AD on donepezil 10 mg. She did not tolerate Memantine due to agitation and personality changes. Pramipexole 1 mg q hS is for RLS and sleep with resolution of severe nocturnal pains. Depakote was started last year for symptomatic treatment of myoclonic jerks associated with her advancing encephalopathy. These would increase, as one would expect, with toxic-metabolic insults such as infection. Daughter feels that she is more forgetful and confused off donepezil since admission. EXAM: confused. [facility]. No month or year. Non-focal exam with min myoclonus at this time. IMP: Advanced Alzheimers Toxic-metabolic encphalopathy RLS SUGGEST: Resume Donepezil 5mg after breakfast if Dr. Florez agrees. This can be increased back to 10 mg at discharge if tolerated. Continue Pramipexole 1 mg qhs for RLS/sleep. (Reduce for hallucinations). I agree with Dr. Florez that the Depakote could be reduced to 250 mg q 12 hrs if myoclonus remains reduced. Thank you very much, Panchito Helton MD
[2018-05-06] MEDS: DIVALPROEX SODIUM 500 MG TABLET E.C. PO SCH (21:41)
[2018-05-06] MEDS: ROSUVASTATIN CA 10 MG TABLET (FP) PO SCH (21:41)
[2018-05-06] MEDS: PRAMIPEXOLE DIHYDROCHLORIDE 1 MG TABLET PO SCH (21:42)
[2018-05-07] MEDS: RIFAXIMIN 550 MG TABLET (UD) PO SCH ×3 (06:10→21:57)
[2018-05-07] MEDS: INSULIN SLIDING SCALE (NOVOLOG) 1 VIAL SQ SCH ×4 (06:10→21:56)
[2018-05-07 07:10] LABS: MAGNESIUM 2.2 mg/dL (1.8-2.4)
[2018-05-07] MEDS: AMOX TR/POT CLAV 500MG/125MG TABLETS (FP) PO SCH ×2 (08:05→17:52)
[2018-05-07 09:05] LABS: ANION GAP 7 MMOL/L (8-16); BLOOD UREA NITROGEN 9 mg/dL (7-18); CALCIUM 8.3 mg/dL (8.5-10.1); CHLORIDE 109 mmol/L (98-107); CO2 27 mmol/L (21-32); CREATININE 0.9 mg/dL (0.55-1.3); GLUCOSE,RANDOM 160 mg/dL (74-106); POTASSIUM 3.7 mmol/L (3.5-5.1); SODIUM 143 mmol/L (136-145)
[2018-05-07] MEDS: PANTOPRAZOLE 40 MG TABLET (FP) PO SCH (10:05)
[2018-05-07] MEDS: NIFEdipine E.R 60 MG TABLET (UD) PO SCH (10:05)
[2018-05-07] MEDS: ASPIRIN COATED 81 MG TABLET.EC PO SCH (10:05)
[2018-05-07] MEDS: hydrALAZINE HCL 25 MG TABLET (FP) PO SCH ×2 (10:05→21:56)
[2018-05-07] MEDS: DIVALPROEX SODIUM 500 MG TABLET E.C. PO SCH ×2 (10:06→21:57)
[2018-05-07] MEDS: LIPASE/PROTEASE/AMYLASE 36,000 UNIT CAPSULE PO SCH ×3 (10:06→17:55)
--- NOTE | 2018-05-07 13:45 | PN ---
Progress Note, Physician History of Present Illness: Pt seen and examined at bedside. She is tolerating diet. She denies shortness of breath. - Current Medication List Current Medications: Active Medications Acetaminophen (Tylenol -) 650 mg PO Q4H PRN PRN Reason: FEVER Last Admin: 05/06/18 19:21 Dose: 650 mg Amoxicillin/Clavulanate Potassium (Augmentin - 500mg Tablet) 1 tab PO BID@0800, 1730 [facility] Last Admin: 05/07/18 08:05 Dose: 1 tab Aspirin (Ecotrin -) 81 mg PO DAILY [facility] Last Admin: 05/07/18 10:05 Dose: 81 mg Bupropion HCl (Wellbutrin Xl -) 150 mg PO DAILY [facility] Last Admin: 05/07/18 10:05 Dose: 150 mg Divalproex Sodium (Depakote -) 500 mg PO BID [facility] Last Admin: 05/07/18 10:06 Dose: 500 mg Hydralazine HCl (Apresoline -) 25 mg PO BID [facility] Last Admin: 05/07/18 10:05 Dose: 25 mg Insulin Aspart (Novolog Vial Sliding Scale -) 1 vial SQ [facility]; Protocol Last Admin: 05/07/18 11:56 Dose: 4 units Nifedipine (Procardia Xl -) 60 mg PO DAILY [facility] Last Admin: 05/07/18 10:05 Dose: 60 mg Pancrelipase (Creon Dr 36,000 Units Capsule) 1 cap PO TIDCM [facility] Last Admin: 05/07/18 10:06 Dose: 1 cap Pantoprazole Sodium (Protonix -) 40 mg PO DAILY [facility] Last Admin: 05/07/18 10:05 Dose: 40 mg Pramipexole Dihydrochloride (Mirapex -) 1 mg PO HS [facility] Last Admin: 05/06/18 21:42 Dose: 1 mg Rifaximin (Xifaxan -) 550 mg PO TID [facility] Last Admin: 05/07/18 06:10 Dose: 550 mg Rosuvastatin Calcium (Crestor -) 10 mg PO [facility] Last Admin: 05/06/18 21:41 Dose: 10 mg - Objective Vital Signs: Vital Signs Temperature 98.3 F 05/07/18 06:00 Pulse Rate 75 05/07/18 06:00 Respiratory Rate 16 05/07/18 06:00 Blood Pressure 160/89 05/07/18 06:00 O2 Sat by Pulse Oximetry (%) 98 05/06/18 21:00 Constitutional: Yes: Calm Eyes: Yes: Conjunctiva Clear HENT: Yes: Atraumatic Neck: Yes: Supple Cardiovascular: Yes: S1, S2 Respiratory: Yes: CTA Bilaterally Gastrointestinal: Yes: Normal Bowel Sounds, Soft Genitourinary: Yes: Shcultz Present Edema: LLE: Trace, RLE: Trace Neurological: Yes: Oriented Psychiatric: Yes: Oriented Labs: CBC, BMP 05/06/18 12:57 05/07/18 05:45 Problem List - Problems (1) Hypernatremia Code(s): E87.0 - HYPEROSMOLALITY AND HYPERNATREMIA Assessment/Plan Current Medications Generic Name Dose Route Start Last Admin Trade Name Freq PRN Reason Stop Dose Admin Acetaminophen 650 mg 05/02/18 10:04 05/06/18 19:21 Tylenol - PO 650 mg Q4H PRN Administration FEVER Amoxicillin/Clavulanate Potassium 1 tab 05/06/18 17:30 05/07/18 08:05 Augmentin - 500mg Tablet PO 1 tab BID@0800,1730 [facility] Administration Aspirin 81 mg 04/28/18 10:00 05/07/18 10:05 Ecotrin - PO 81 mg DAILY [facility] Administration Bupropion HCl 150 mg 04/28/18 10:00 05/07/18 10:05 Wellbutrin Xl - PO 150 mg DAILY [facility] Administration Divalproex Sodium 500 mg 05/06/18 22:00 05/07/18 10:06 Depakote - PO 500 mg BID [facility] Administration Hydralazine HCl 25 mg 04/28/18 10:00 05/07/18 10:05 Apresoline - PO 25 mg BID [facility] Administration Insulin Aspart 1 vial 04/28/18 07:00 05/07/18 11:56 Novolog Vial Sliding Scale - SQ 4 units ACHS [facility] Administration Protocol Nifedipine 60 mg 04/28/18 10:00 05/07/18 10:05 Procardia Xl - PO 60 mg DAILY [facility] Administration Pancrelipase 1 cap 05/05/18 12:00 05/07/18 10:06 Elaine Sweeney 36,000 Units Capsule PO 1 cap TIDCM [facility] Administration Pantoprazole Sodium 40 mg 05/07/18 10:00 05/07/18 10:05 Protonix - PO 40 mg DAILY [facility] Administration Pramipexole Dihydrochloride 1 mg 04/28/18 22:00 05/06/18 21:42 Mirapex - PO 1 mg HS [facility] Administration Rifaximin 550 mg 05/05/18 14:00 05/07/18 06:10 Xifaxan - PO 550 mg TID [facility] Administration Rosuvastatin Calcium 10 mg 04/28/18 22:00 05/06/18 21:41 Crestor - PO 10 mg HS [facility] Administration Impression 1. hypernatremia 2. fecal impaction 3. HLD 4. fever 5. HTN 6. DM 7. proteinuria Plan - sodium stable off of fluids - renal function is stable - monitor lytes - encourage PO intake
--- NOTE | 2018-05-07 14:27 | PN ---
Progress Note (short form) - Note Progress Note: PULMONARY States breathing is improving. No fevers or chills. Minimal cough. Vital Signs Period Temp Pulse Resp BP Sys/East Pulse Ox Last 24 Hr 98.0 F-98.3 F 71-78 16-18 118-197/51-89 98-98 Gen: NAD at rest Heart: RRR Lung: decreased breath sounds at the bases Abd: soft, nontender Ext: + edema CBC, BMP 05/06/18 12:57 05/07/18 05:45 Active Medications Acetaminophen (Tylenol -) 650 mg PO Q4H PRN PRN Reason: FEVER Last Admin: 05/06/18 19:21 Dose: 650 mg Amoxicillin/Clavulanate Potassium (Augmentin - 500mg Tablet) 1 tab PO BID@0800, 1730 [facility] Last Admin: 05/07/18 08:05 Dose: 1 tab Aspirin (Ecotrin -) 81 mg PO DAILY [facility] Last Admin: 05/07/18 10:05 Dose: 81 mg Bupropion HCl (Wellbutrin Xl -) 150 mg PO DAILY [facility] Last Admin: 05/07/18 10:05 Dose: 150 mg Divalproex Sodium (Depakote -) 500 mg PO BID [facility] Last Admin: 05/07/18 10:06 Dose: 500 mg Hydralazine HCl (Apresoline -) 25 mg PO BID [facility] Last Admin: 05/07/18 10:05 Dose: 25 mg Insulin Aspart (Novolog Vial Sliding Scale -) 1 vial SQ ACHS [facility]; Protocol Last Admin: 05/07/18 11:56 Dose: 4 units Nifedipine (Procardia Xl -) 60 mg PO DAILY [facility] Last Admin: 05/07/18 10:05 Dose: 60 mg Pancrelipase (Creon Dr 36,000 Units Capsule) 1 cap PO TIDCM [facility] Last Admin: 05/07/18 10:06 Dose: 1 cap Pantoprazole Sodium (Protonix -) 40 mg PO DAILY [facility] Last Admin: 05/07/18 10:05 Dose: 40 mg Pramipexole Dihydrochloride (Mirapex -) 1 mg PO HS [facility] Last Admin: 05/06/18 21:42 Dose: 1 mg Rifaximin (Xifaxan -) 550 mg PO TID [facility] Last Admin: 05/07/18 06:10 Dose: 550 mg Rosuvastatin Calcium (Crestor -) 10 mg PO HS [facility] Last Admin: 05/06/18 21:41 Dose: 10 mg A/P r/o Pneumonia Pleural Effusions Acute Kidney Injury improving HTN DM Parkinsons Dementia - complete antibiotics - o2 to keep Spo2 >90% - aspiration precautions - DVT prophylaxis
--- NOTE | 2018-05-07 16:47 | PN ---
Progress Note, Physician Chief Complaint: Abdominal Pain DM History of Present Illness: Previous notes and events reviewed awake and alert NAD denies complaints of chest pain, palpitations, abdominal pain - Current Medication List Current Medications: Active Medications Acetaminophen (Tylenol -) 650 mg PO Q4H PRN PRN Reason: FEVER Last Admin: 05/06/18 19:21 Dose: 650 mg Amoxicillin/Clavulanate Potassium (Augmentin - 500mg Tablet) 1 tab PO BID@0800, 1730 [facility] Last Admin: 05/07/18 08:05 Dose: 1 tab Aspirin (Ecotrin -) 81 mg PO DAILY [facility] Last Admin: 05/07/18 10:05 Dose: 81 mg Bupropion HCl (Wellbutrin Xl -) 150 mg PO DAILY [facility] Last Admin: 05/07/18 10:05 Dose: 150 mg Divalproex Sodium (Depakote -) 500 mg PO BID [facility] Last Admin: 05/07/18 10:06 Dose: 500 mg Hydralazine HCl (Apresoline -) 25 mg PO BID [facility] Last Admin: 05/07/18 10:05 Dose: 25 mg Insulin Aspart (Novolog Vial Sliding Scale -) 1 vial SQ [facility]; Protocol Last Admin: 05/07/18 11:56 Dose: 4 units Nifedipine (Procardia Xl -) 60 mg PO DAILY [facility] Last Admin: 05/07/18 10:05 Dose: 60 mg Pancrelipase (Creon Dr 36,000 Units Capsule) 1 cap PO TIDCM [facility] Last Admin: 05/07/18 12:57 Dose: 1 cap Pantoprazole Sodium (Protonix -) 40 mg PO DAILY [facility] Last Admin: 05/07/18 10:05 Dose: 40 mg Pramipexole Dihydrochloride (Mirapex -) 1 mg PO [facility] Last Admin: 05/06/18 21:42 Dose: 1 mg Rifaximin (Xifaxan -) 550 mg PO TID [facility] Last Admin: 05/07/18 14:57 Dose: 550 mg Rosuvastatin Calcium (Crestor -) 10 mg PO [facility] Last Admin: 05/06/18 21:41 Dose: 10 mg - Objective Vital Signs: Vital Signs Temperature 98.1 F 05/07/18 14:00 Pulse Rate 80 05/07/18 14:00 Respiratory Rate 16 05/07/18 14:00 Blood Pressure 158/69 05/07/18 14:00 O2 Sat by Pulse Oximetry (%) 98 05/07/18 09:00 Constitutional: Yes: Well Nourished, No Distress, Calm Eyes: Yes: Conjunctiva Clear Cardiovascular: Yes: Regular Rate and Rhythm Respiratory: Yes: Regular, Diminished Gastrointestinal: Yes: Normal Bowel Sounds, Soft Musculoskeletal: Yes: Muscle Weakness Edema: Yes (LUE) Neurological: Yes: Alert, Oriented Psychiatric: Yes: Alert, Oriented Labs: CBC, BMP 05/06/18 12:57 05/07/18 05:45 Problem List - Problems (1) HLD (hyperlipidemia) Assessment/Plan: -cont with crestor 10mg qhs Code(s): E78.5 - HYPERLIPIDEMIA, UNSPECIFIED (2) Nausea and vomiting Assessment/Plan: -avoid zofran and reglan Code(s): R11.2 - NAUSEA WITH VOMITING, UNSPECIFIED Qualifiers: Vomiting type: unspecified Vomiting Intractability: intractable Qualified Code(s): R11.2 - Nausea with vomiting, unspecified (3) Abdominal pain Assessment/Plan: -tylenol PRN for pain management, avoid narcotics -continue with xifaxin and creon Code(s): R10.9 - UNSPECIFIED ABDOMINAL PAIN Qualifiers: Abdominal location: unspecified location Qualified Code(s): R10.9 - Unspecified abdominal pain (4) Uncontrolled diabetes mellitus Assessment/Plan: -BGM ACHS, ISS -HgA1c 10.4 -endocrinology consult Code(s): E11.65 - TYPE 2 DIABETES MELLITUS WITH HYPERGLYCEMIA Qualifiers: Diabetes mellitus type: type 2 (5) Hypernatremia Assessment/Plan: -renal on board -will continue to monitor Na level, current level 143 Code(s): E87.0 - HYPEROSMOLALITY AND HYPERNATREMIA (6) Metabolic encephalopathy Assessment/Plan: -BC and UC neg -ID on board -continue PO ABT - Code(s): G93.41 - METABOLIC ENCEPHALOPATHY (7) Myoclonic jerking Assessment/Plan: -Neurology on board -EEG pending -Depakote 500mg PO BID -neuro checks q4h -fall precautions -Head CT scan reviewed and negative for acute intracranial hemorrhage, edema, midline shift, mass effect, or skull fracture Code(s): G25.3 - MYOCLONUS (8) PNA (pneumonia) Assessment/Plan: -ID consult -cont PO ABT -pulm consult -O2 via NC PRN for SOB -keep SpO2 >90% Code(s): J18.9 - PNEUMONIA, UNSPECIFIED ORGANISM (9) IBS (irritable bowel syndrome) Assessment/Plan: -to start on Creon 36,000 units PO TID -to start Xifaxin 550mg PO TID Code(s): K58.9 - IRRITABLE BOWEL SYNDROME WITHOUT DIARRHEA
[2018-05-07] MEDS: ACETAMINOPHEN 325 MG TABLET (FP) PO PRN (18:29)
[2018-05-07] MEDS ORDERED: PT OWN MED DRAWER 7, Y5N ONE (21:48)
[2018-05-07] MEDS: ROSUVASTATIN CA 10 MG TABLET (FP) PO SCH (21:56)
[2018-05-07] MEDS: PRAMIPEXOLE DIHYDROCHLORIDE 1 MG TABLET PO SCH (22:11)
[2018-05-08] MEDS ORDERED: PT OWN MED DRAWER 7, Y5N ONE ×6 (04:55→22:13)
[2018-05-08] MEDS: RIFAXIMIN 550 MG TABLET (UD) PO SCH ×3 (05:12→22:14)
[2018-05-08] MEDS: INSULIN SLIDING SCALE (NOVOLOG) 1 VIAL SQ SCH ×4 (06:09→22:13)
[2018-05-08] MEDS: hydrALAZINE HCL 25 MG TABLET (FP) PO SCH ×2 (09:07→22:13)
[2018-05-08] MEDS: AMOX TR/POT CLAV 500MG/125MG TABLETS (FP) PO SCH ×2 (09:07→16:37)
[2018-05-08] MEDS: ASPIRIN COATED 81 MG TABLET.EC PO SCH (09:07)
[2018-05-08] MEDS: NIFEdipine E.R 60 MG TABLET (UD) PO SCH (09:07)
[2018-05-08] MEDS: DIVALPROEX SODIUM 500 MG TABLET E.C. PO SCH ×2 (09:08→22:14)
[2018-05-08] MEDS: LIPASE/PROTEASE/AMYLASE 36,000 UNIT CAPSULE PO SCH ×3 (09:08→16:38)
[2018-05-08] MEDS: PANTOPRAZOLE 40 MG TABLET (FP) PO SCH (09:09)
--- NOTE | 2018-05-08 09:32 | PN ---
Progress Note, Physician Chief Complaint: AWAKE MORE ALERT DENIES CHEST PAIN OR SOB +APPETITE - Current Medication List Current Medications: Active Medications Acetaminophen (Tylenol -) 650 mg PO Q4H PRN PRN Reason: FEVER Last Admin: 05/07/18 18:29 Dose: 650 mg Amoxicillin/Clavulanate Potassium (Augmentin - 500mg Tablet) 1 tab PO BID@0800, 1730 [facility] Last Admin: 05/08/18 09:07 Dose: 1 tab Aspirin (Ecotrin -) 81 mg PO DAILY [facility] Last Admin: 05/08/18 09:07 Dose: 81 mg Bupropion HCl (Wellbutrin Xl -) 150 mg PO DAILY [facility] Last Admin: 05/08/18 09:08 Dose: 150 mg Divalproex Sodium (Depakote -) 500 mg PO BID [facility] Last Admin: 05/08/18 09:08 Dose: 500 mg Hydralazine HCl (Apresoline -) 25 mg PO BID [facility] Last Admin: 05/08/18 09:07 Dose: 25 mg Insulin Aspart (Novolog Vial Sliding Scale -) 1 vial SQ ACHS [facility]; Protocol Last Admin: 05/08/18 06:09 Dose: Not Given Nifedipine (Procardia Xl -) 60 mg PO DAILY [facility] Last Admin: 05/08/18 09:07 Dose: 60 mg Pancrelipase (Creon Dr 36,000 Units Capsule) 1 cap PO TIDCM [facility] Last Admin: 05/08/18 09:08 Dose: 1 cap Pantoprazole Sodium (Protonix -) 40 mg PO DAILY [facility] Last Admin: 05/08/18 09:09 Dose: 40 mg Pramipexole Dihydrochloride (Mirapex -) 1 mg PO HS [facility] Last Admin: 05/07/18 22:11 Dose: 1 mg Rifaximin (Xifaxan -) 550 mg PO TID [facility] Last Admin: 05/08/18 05:12 Dose: 550 mg Rosuvastatin Calcium (Crestor -) 10 mg PO [facility] Last Admin: 05/07/18 21:56 Dose: 10 mg - Objective Vital Signs: Vital Signs Temperature 97.4 F L 05/08/18 06:00 Pulse Rate 76 05/08/18 06:00 Respiratory Rate 18 05/08/18 06:00 Blood Pressure 159/85 05/08/18 06:00 O2 Sat by Pulse Oximetry (%) 95 05/07/18 21:00 Constitutional: Yes: No Distress Eyes: Yes: WNL HENT: Yes: WNL Neck: Yes: WNL Cardiovascular: Yes: Regular Rate and Rhythm Respiratory: Yes: WNL Gastrointestinal: Yes: Soft Genitourinary: Yes: Elliott Present Musculoskeletal: Yes: Muscle Weakness Edema: No Peripheral Pulses WNL: Yes Neurological: Yes: Pre-Existing Deficit ...Motor Strength: LLE, RLE Labs: CBC, BMP 05/06/18 12:57 05/07/18 05:45 Problem List - Problems (1) JASPER (acute kidney injury) Code(s): N17.9 - ACUTE KIDNEY FAILURE, UNSPECIFIED (2) Arthritis Code(s): M19.90 - UNSPECIFIED OSTEOARTHRITIS, UNSPECIFIED SITE (3) Dementia Code(s): F03.90 - UNSPECIFIED DEMENTIA WITHOUT BEHAVIORAL DISTURBANCE (4) HLD (hyperlipidemia) Code(s): E78.5 - HYPERLIPIDEMIA, UNSPECIFIED (5) Hypernatremia Code(s): E87.0 - HYPEROSMOLALITY AND HYPERNATREMIA (6) Hypokalemia Code(s): E87.6 - HYPOKALEMIA (7) Metabolic encephalopathy Code(s): G93.41 - METABOLIC ENCEPHALOPATHY (8) Anemia Code(s): D64.9 - ANEMIA, UNSPECIFIED (9) Diabetes mellitus with autonomic neuropathy Code(s): E11.43 - TYPE 2 DIABETES W DIABETIC AUTONOMIC (POLY)NEUROPATHY (10) Diverticulosis Code(s): K57.90 - DVRTCLOS OF INTEST, PART UNSP, W/O PERF OR ABSCESS W/O BLEED (11) Failure to thrive Code(s): DMD2366 - Qualifiers: Failure to thrive age range: in adult Qualified Code(s): R62.7 - Adult failure to thrive (12) Gastroparesis due to DM Code(s): E11.43 - TYPE 2 DIABETES W DIABETIC AUTONOMIC (POLY)NEUROPATHY; K31.84 - GASTROPARESIS (13) Weakness Code(s): R53.1 - WEAKNESS Assessment/Plan PATIENT IS READY FOR SNF PLACEMENT [facility] CAN BE STOPPED IN MORNING AND MONITORED IF SHE CAN VOID OR NOT. OOB TO CHAIR PT EVAL
--- NOTE | 2018-05-08 12:22 | PN ---
Progress Note (short form) - Note Progress Note: PULMONARY States breathing continues to improve. No fevers or chills. Minimal cough. Vital Signs Period Temp Pulse Resp BP Sys/East Pulse Ox Last 24 Hr 97.4 F-98.7 F 71-80 16-20 149-197/64-85 95-99 Gen: NAD at rest Heart: RRR Lung: decreased breath sounds at the bases Abd: soft, nontender Ext: + edema CBC, BMP 05/06/18 12:57 05/07/18 05:45 Active Medications Acetaminophen (Tylenol -) 650 mg PO Q4H PRN PRN Reason: FEVER Last Admin: 05/07/18 18:29 Dose: 650 mg Amoxicillin/Clavulanate Potassium (Augmentin - 500mg Tablet) 1 tab PO BID@0800, 1730 [facility] Last Admin: 05/08/18 09:07 Dose: 1 tab Aspirin (Ecotrin -) 81 mg PO DAILY [facility] Last Admin: 05/08/18 09:07 Dose: 81 mg Bupropion HCl (Wellbutrin Xl -) 150 mg PO DAILY [facility] Last Admin: 05/08/18 09:08 Dose: 150 mg Divalproex Sodium (Depakote -) 500 mg PO BID [facility] Last Admin: 05/08/18 09:08 Dose: 500 mg Hydralazine HCl (Apresoline -) 25 mg PO BID [facility] Last Admin: 05/08/18 09:07 Dose: 25 mg Insulin Aspart (Novolog Vial Sliding Scale -) 1 vial SQ ACHS [facility]; Protocol Last Admin: 05/08/18 11:23 Dose: 2 units Nifedipine (Procardia Xl -) 60 mg PO DAILY [facility] Last Admin: 05/08/18 09:07 Dose: 60 mg Pancrelipase (Creon Dr 36,000 Units Capsule) 1 cap PO TIDCM [facility] Last Admin: 05/08/18 11:26 Dose: 1 cap Pantoprazole Sodium (Protonix -) 40 mg PO DAILY [facility] Last Admin: 05/08/18 09:09 Dose: 40 mg Pramipexole Dihydrochloride (Mirapex -) 1 mg PO HS [facility] Last Admin: 05/07/18 22:11 Dose: 1 mg Rifaximin (Xifaxan -) 550 mg PO TID [facility] Last Admin: 05/08/18 05:12 Dose: 550 mg Rosuvastatin Calcium (Crestor -) 10 mg PO HS [facility] Last Admin: 05/07/18 21:56 Dose: 10 mg A/P r/o Pneumonia Pleural Effusions Acute Kidney Injury improving HTN DM Parkinsons Dementia - complete antibiotics - o2 to keep Spo2 >90% - aspiration precautions - DVT prophylaxis
[2018-05-08] MEDS: ACETAMINOPHEN 325 MG TABLET (FP) PO PRN (13:26)
[2018-05-08] MEDS ORDERED: POTASSIUM CHLORIDE TABS 20 MEQ TABLET.ER (FP) PO ONE (14:28)
--- NOTE | 2018-05-08 14:28 | PN ---
Progress Note, Physician History of Present Illness: Pt seen and examined at bedside. She is awake and alert. She has appetite. - Current Medication List Current Medications: Active Medications Acetaminophen (Tylenol -) 650 mg PO Q4H PRN PRN Reason: FEVER Last Admin: 05/08/18 13:26 Dose: 650 mg Amoxicillin/Clavulanate Potassium (Augmentin - 500mg Tablet) 1 tab PO BID@0800, 1730 [facility] Last Admin: 05/08/18 09:07 Dose: 1 tab Aspirin (Ecotrin -) 81 mg PO DAILY [facility] Last Admin: 05/08/18 09:07 Dose: 81 mg Bupropion HCl (Wellbutrin Xl -) 150 mg PO DAILY [facility] Last Admin: 05/08/18 09:08 Dose: 150 mg Divalproex Sodium (Depakote -) 500 mg PO BID [facility] Last Admin: 05/08/18 09:08 Dose: 500 mg Hydralazine HCl (Apresoline -) 25 mg PO BID [facility] Last Admin: 05/08/18 09:07 Dose: 25 mg Insulin Aspart (Novolog Vial Sliding Scale -) 1 vial SQ ACHS [facility]; Protocol Last Admin: 05/08/18 11:23 Dose: 2 units Nifedipine (Procardia Xl -) 60 mg PO DAILY [facility] Last Admin: 05/08/18 09:07 Dose: 60 mg Pancrelipase (Creon Dr 36,000 Units Capsule) 1 cap PO TIDCM [facility] Last Admin: 05/08/18 11:26 Dose: 1 cap Pantoprazole Sodium (Protonix -) 40 mg PO DAILY [facility] Last Admin: 05/08/18 09:09 Dose: 40 mg Pramipexole Dihydrochloride (Mirapex -) 1 mg PO HS [facility] Last Admin: 05/07/18 22:11 Dose: 1 mg Rifaximin (Xifaxan -) 550 mg PO TID [facility] Last Admin: 05/08/18 13:07 Dose: 550 mg Rosuvastatin Calcium (Crestor -) 10 mg PO HS [facility] Last Admin: 05/07/18 21:56 Dose: 10 mg - Objective Vital Signs: Vital Signs Temperature 98.5 F 05/08/18 13:56 Pulse Rate 79 05/08/18 13:56 Respiratory Rate 18 05/08/18 13:56 Blood Pressure 137/59 L 05/08/18 13:56 O2 Sat by Pulse Oximetry (%) 99 05/08/18 09:00 Constitutional: Yes: Calm Eyes: Yes: Conjunctiva Clear HENT: Yes: Atraumatic Neck: Yes: Supple Cardiovascular: Yes: S1, S2 Respiratory: Yes: CTA Bilaterally Gastrointestinal: Yes: Normal Bowel Sounds, Soft Genitourinary: Yes: WNL Musculoskeletal: Yes: WNL Edema: Yes Edema: LUE: Trace, RUE: Trace, LLE: 1+, RLE: 1+ Neurological: Yes: Oriented Psychiatric: Yes: Oriented Labs: CBC, BMP 05/06/18 12:57 05/07/18 05:45 Problem List - Problems (1) Hypernatremia Code(s): E87.0 - HYPEROSMOLALITY AND HYPERNATREMIA Assessment/Plan Current Medications Generic Name Dose Route Start Last Admin Trade Name Freq PRN Reason Stop Dose Admin Acetaminophen 650 mg 05/02/18 10:04 05/08/18 13:26 Tylenol - PO 650 mg Q4H PRN Administration FEVER Amoxicillin/Clavulanate Potassium 1 tab 05/06/18 17:30 05/08/18 09:07 Augmentin - 500mg Tablet PO 1 tab BID@0800,1730 [facility] Administration Aspirin 81 mg 04/28/18 10:00 05/08/18 09:07 Ecotrin - PO 81 mg DAILY [facility] Administration Bupropion HCl 150 mg 04/28/18 10:00 05/08/18 09:08 Wellbutrin Xl - PO 150 mg DAILY [facility] Administration Divalproex Sodium 500 mg 05/06/18 22:00 05/08/18 09:08 Depakote - PO 500 mg BID [facility] Administration Hydralazine HCl 25 mg 04/28/18 10:00 05/08/18 09:07 Apresoline - PO 25 mg BID [facility] Administration Insulin Aspart 1 vial 04/28/18 07:00 05/08/18 11:23 Novolog Vial Sliding Scale - SQ 2 units ACHS [facility] Administration Protocol Nifedipine 60 mg 04/28/18 10:00 05/08/18 09:07 Procardia Xl - PO 60 mg DAILY [facility] Administration Pancrelipase 1 cap 05/05/18 12:00 05/08/18 11:26 Elaine Sweeney 36,000 Units Capsule PO 1 cap TIDCM [facility] Administration Pantoprazole Sodium 40 mg 05/07/18 10:00 05/08/18 09:09 Protonix - PO 40 mg DAILY [facility] Administration Pramipexole Dihydrochloride 1 mg 04/28/18 22:00 05/07/18 22:11 Mirapex - PO 1 mg HS [facility] Administration Rifaximin 550 mg 05/05/18 14:00 05/08/18 13:07 Xifaxan - PO 550 mg TID [facility] Administration Rosuvastatin Calcium 10 mg 04/28/18 22:00 05/07/18 21:56 Crestor - PO 10 mg HS [facility] Administration Impression 1. hypernatremia 2. fecal impaction 3. HLD 4. fever 5. HTN 6. DM 7. proteinuria Plan - restart lasix at 20 mg daily - will give a dose of potassium as well - repeat labs in am - discussed care with daughter - encourage PO intake
[2018-05-08] MEDS: FUROSEMIDE 20 MG TABLET (FP) PO SCH (15:10)
[2018-05-08] MEDS: POLYETHYLENE GLYCOL 3350 119 GM BTL PO SCH ×2 (17:45→22:15)
--- NOTE | 2018-05-08 20:33 | PN ---
GI Progress Note Subjective: no abdominal pain, no constipation or diarrhea - Objective Vital Signs: Vital Signs Temperature 98.4 F 05/08/18 17:00 Pulse Rate 78 05/08/18 17:00 Respiratory Rate 18 05/08/18 17:00 Blood Pressure 120/49 L 05/08/18 17:00 O2 Sat by Pulse Oximetry (%) 99 05/08/18 09:00 Constitutional: Well Nourished Eyes: Yes: Conjunctiva Clear HENT: Yes: Atraumatic Neck: Yes: Supple Cardiovascular: Yes: Regular Rate and Rhythm Respiratory: Yes: CTA Bilaterally ...Palpate: Yes: Soft. No: Guarding, Hepatomegaly, Mass, Pulsatile Mass Labs: CBC, BMP 05/06/18 12:57 05/07/18 05:45 Problem List - Problems (1) Nausea and vomiting Assessment/Plan: --resolved Code(s): R11.2 - NAUSEA WITH VOMITING, UNSPECIFIED Qualifiers: Vomiting type: unspecified Vomiting Intractability: intractable Qualified Code(s): R11.2 - Nausea with vomiting, unspecified (2) Abdominal pain Assessment/Plan: --resolved Code(s): R10.9 - UNSPECIFIED ABDOMINAL PAIN Qualifiers: Abdominal location: unspecified location Qualified Code(s): R10.9 - Unspecified abdominal pain (3) Metabolic syndrome Assessment/Plan: resolved Code(s): E88.81 - METABOLIC SYNDROME (4) Metabolic encephalopathy Code(s): G93.41 - METABOLIC ENCEPHALOPATHY (5) Anemia Assessment/Plan: etiology unclear, previous EGD and colonoscopy by Dr Robertson reveal no active bleeding R>because of multi[ple medical problems will hold off further gi w/u at this time, patient is guaiac negative Code(s): D64.9 - ANEMIA, UNSPECIFIED
[2018-05-08] MEDS: ROSUVASTATIN CA 10 MG TABLET (FP) PO SCH (22:13)
[2018-05-08] MEDS: PRAMIPEXOLE DIHYDROCHLORIDE 1 MG TABLET PO SCH (22:14)
[2018-05-09] MEDS: RIFAXIMIN 550 MG TABLET (UD) PO SCH ×3 (05:35→22:28)
[2018-05-09] MEDS: INSULIN SLIDING SCALE (NOVOLOG) 1 VIAL SQ SCH ×4 (07:44→22:29)
[2018-05-09 08:38] LABS: ALK PHOS 171 U/L (45-117); ANION GAP 5 MMOL/L (8-16); BILIRUBIN,TOTAL 0.2 mg/dL (0.2-1); BLOOD UREA NITROGEN 9 mg/dL (7-18); CALCIUM 8.4 mg/dL (8.5-10.1); CHLORIDE 109 mmol/L (98-107); CO2 30 mmol/L (21-32); GLUCOSE,RANDOM 195 mg/dL (74-106); POTASSIUM 4.4 mmol/L (3.5-5.1); SGOT/AST 22 U/L (15-37); SGPT/ALT 27 U/L (13-61); SODIUM 144 mmol/L (136-145)
[2018-05-09] MEDS ORDERED: PT OWN MED DRAWER 7, Y5N ONE (09:25)
[2018-05-09] MEDS: POLYETHYLENE GLYCOL 3350 119 GM BTL PO SCH ×2 (09:32→22:29)
[2018-05-09] MEDS: AMOX TR/POT CLAV 500MG/125MG TABLETS (FP) PO SCH ×2 (09:32→17:16)
[2018-05-09] MEDS: PANTOPRAZOLE 40 MG TABLET (FP) PO SCH (09:32)
[2018-05-09] MEDS: FUROSEMIDE 20 MG TABLET (FP) PO SCH (09:32)
[2018-05-09] MEDS: NIFEdipine E.R 60 MG TABLET (UD) PO SCH (09:32)
[2018-05-09] MEDS: ASPIRIN COATED 81 MG TABLET.EC PO SCH (09:32)
[2018-05-09] MEDS: hydrALAZINE HCL 25 MG TABLET (FP) PO SCH ×2 (09:32→22:28)
[2018-05-09] MEDS: LIPASE/PROTEASE/AMYLASE 36,000 UNIT CAPSULE PO SCH ×3 (09:33→17:16)
[2018-05-09] MEDS: DIVALPROEX SODIUM 500 MG TABLET E.C. PO SCH (09:33)
--- NOTE | 2018-05-09 11:45 | PN ---
Progress Note, Physician History of Present Illness: pulmonary alert,no distress,dyspnea improving,min cough - Current Medication List Current Medications: Active Medications Acetaminophen (Tylenol -) 650 mg PO Q4H PRN PRN Reason: FEVER Last Admin: 05/08/18 13:26 Dose: 650 mg Amoxicillin/Clavulanate Potassium (Augmentin - 500mg Tablet) 1 tab PO BID@0800, 1730 [facility] Last Admin: 05/09/18 09:32 Dose: 1 tab Aspirin (Ecotrin -) 81 mg PO DAILY [facility] Last Admin: 05/09/18 09:32 Dose: 81 mg Bupropion HCl (Wellbutrin Xl -) 150 mg PO DAILY [facility] Last Admin: 05/09/18 09:32 Dose: 150 mg Divalproex Sodium (Depakote -) 500 mg PO BID [facility] Last Admin: 05/09/18 09:33 Dose: 500 mg Furosemide (Lasix -) 20 mg PO DAILY [facility] Last Admin: 05/09/18 09:32 Dose: 20 mg Hydralazine HCl (Apresoline -) 25 mg PO BID [facility] Last Admin: 05/09/18 09:32 Dose: 25 mg Insulin Aspart (Novolog Vial Sliding Scale -) 1 vial SQ ACHS [facility]; Protocol Last Admin: 05/09/18 07:44 Dose: 4 units Nifedipine (Procardia Xl -) 60 mg PO DAILY [facility] Last Admin: 05/09/18 09:32 Dose: 60 mg Pancrelipase (Creon Dr 36,000 Units Capsule) 1 cap PO TIDCM [facility] Last Admin: 05/09/18 09:33 Dose: 1 cap Pantoprazole Sodium (Protonix -) 40 mg PO DAILY [facility] Last Admin: 05/09/18 09:32 Dose: 40 mg Polyethylene Glycol (Miralax (For Daily Use) -) 17 gm PO BID [facility] Last Admin: 05/09/18 09:32 Dose: 17 gm Pramipexole Dihydrochloride (Mirapex -) 1 mg PO [facility] Last Admin: 05/08/18 22:14 Dose: 1 mg Rifaximin (Xifaxan -) 550 mg PO TID [facility] Last Admin: 05/09/18 05:35 Dose: 550 mg Rosuvastatin Calcium (Crestor -) 10 mg PO HS [facility] Last Admin: 05/08/18 22:13 Dose: 10 mg - Objective Vital Signs: Vital Signs Temperature 98.4 F 05/09/18 09:37 Pulse Rate 77 05/09/18 09:37 Respiratory Rate 18 05/09/18 09:37 Blood Pressure 179/98 H 05/09/18 09:37 O2 Sat by Pulse Oximetry (%) 100 05/09/18 09:00 Constitutional: Yes: Well Nourished, Calm Eyes: Yes: WNL HENT: Yes: WNL Neck: Yes: WNL Cardiovascular: Yes: Regular Rate and Rhythm, S1, S2 Respiratory: Yes: Diminished Gastrointestinal: Yes: Normal Bowel Sounds, Soft Extremities: Yes: WNL Edema: Yes Labs: 05/09/18 06:00 Problem List - Problems (1) JASPER (acute kidney injury) Code(s): N17.9 - ACUTE KIDNEY FAILURE, UNSPECIFIED (2) Arthritis Code(s): M19.90 - UNSPECIFIED OSTEOARTHRITIS, UNSPECIFIED SITE (3) Dementia Code(s): F03.90 - UNSPECIFIED DEMENTIA WITHOUT BEHAVIORAL DISTURBANCE (4) HLD (hyperlipidemia) Code(s): E78.5 - HYPERLIPIDEMIA, UNSPECIFIED (5) 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 (6) PNA (pneumonia) Code(s): J18.9 - PNEUMONIA, UNSPECIFIED ORGANISM (7) Abdominal pain Code(s): R10.9 - UNSPECIFIED ABDOMINAL PAIN Qualifiers: Abdominal location: unspecified location Qualified Code(s): R10.9 - Unspecified abdominal pain (8) Anemia Code(s): D64.9 - ANEMIA, UNSPECIFIED (9) Diabetes mellitus with neuropathy Code(s): E11.40 - TYPE 2 DIABETES MELLITUS WITH DIABETIC NEUROPATHY, UNSP (10) Gastroparesis due to DM Code(s): E11.43 - TYPE 2 DIABETES W DIABETIC AUTONOMIC (POLY)NEUROPATHY; K31.84 - GASTROPARESIS (11) HTN (hypertension) Code(s): I10 - ESSENTIAL (PRIMARY) HYPERTENSION (12) Leukocytosis Code(s): D72.829 - ELEVATED WHITE BLOOD CELL COUNT, UNSPECIFIED (13) Parkinson disease Code(s): G20 - PARKINSON'S DISEASE Assessment/Plan Assessment/Plan IMP BILATERAL PLEURAL EFFUSIONS ABD PAIN IMPROVED ALTERED MENTAL STATUS IMPROVED DM HTN DEMENTIA PARKINSONS HLD OSTEOARTHRITIS JASPER IMPROVED MYOCLONIC JERKS ?TOXIC-METABOLIC ENCEPHALOPATHY IMPROVED HYPERNATREMIA IMPROVING PLAN AUGMENTIN O2 NEEDED MONITOR LYTES,NA,CBC F/U CHEST X-RAY today DR CAMPA Problem List - Problems (1) JASPER (acute kidney injury) Code(s): N17.9 - ACUTE KIDNEY FAILURE, UNSPECIFIED (2) Arthritis Code(s): M19.90 - UNSPECIFIED OSTEOARTHRITIS, UNSPECIFIED SITE (3) Dementia Code(s): F03.90 - UNSPECIFIED DEMENTIA WITHOUT BEHAVIORAL DISTURBANCE (4) HLD (hyperlipidemia) Code(s): E78.5 - HYPERLIPIDEMIA, UNSPECIFIED (5) 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 (6) PNA (pneumonia) Code(s): J18.9 - PNEUMONIA, UNSPECIFIED ORGANISM (7) Abdominal pain Code(s): R10.9 - UNSPECIFIED ABDOMINAL PAIN Qualifiers: Abdominal location: unspecified location Qualified Code(s): R10.9 - Unspecified abdominal pain (8) Anemia Code(s): D64.9 - ANEMIA, UNSPECIFIED (9) Diabetes mellitus with neuropathy Code(s): E11.40 - TYPE 2 DIABETES MELLITUS WITH DIABETIC NEUROPATHY, UNSP (10) Gastroparesis due to DM Code(s): E11.43 - TYPE 2 DIABETES W DIABETIC AUTONOMIC (POLY)NEUROPATHY; K31.84 - GASTROPARESIS (11) HTN (hypertension) Code(s): I10 - ESSENTIAL (PRIMARY) HYPERTENSION (12) Leukocytosis Code(s): D72.829 - ELEVATED WHITE BLOOD CELL COUNT, UNSPECIFIED (13) Parkinson disease Code(s): G20 - PARKINSON'S DISEASE
--- NOTE | 2018-05-09 12:18 | PN ---
Progress Note, [employer] - Note Progress Note: Selected Entries 05/08/18 05/08/18 05/08/18 02:00 06:00 09:52 Breakfast Lunch Supper Temperature 98.3 F 97.4 F L 97.4 F L 05/08/18 05/08/18 05/08/18 10:47 13:56 17:00 Breakfast 100% Lunch 100% Supper Temperature 98.5 F 98.4 F 05/08/18 05/08/18 05/09/18 22:00 23:28 02:00 Breakfast Lunch Supper 100% Temperature 97.3 F L 98.6 F 05/09/18 05/09/18 05/09/18 05:54 06:44 09:37 Breakfast Lunch Supper Temperature 98 F 98.2 F 98.4 F On reg diet/thin liquid.Tolerating diet. Verbal.
--- NOTE | 2018-05-09 12:35 | DS ---
Physical Examination Vital Signs: Vital Signs Temperature 98.4 F 05/09/18 09:37 Pulse Rate 77 05/09/18 09:37 Respiratory Rate 18 05/09/18 09:37 Blood Pressure 179/98 H 05/09/18 09:37 O2 Sat by Pulse Oximetry (%) 100 05/09/18 09:00 Constitutional: Yes: Calm Cardiovascular: Yes: Regular Rate and Rhythm, S1, S2 Respiratory: Yes: CTA Bilaterally Gastrointestinal: Yes: Normal Bowel Sounds, Soft Edema: Yes Neurological: Yes: Alert Labs: CBC, BMP 05/06/18 12:57 05/09/18 06:00 Discharge Summary Reason For Visit: UNCONTROLLED DM ABD PAIN CONSTIPATION Current Active Problems JASPER (acute kidney injury) (Acute) Anemia (Acute) Arthritis (Acute) Dementia (Acute) HLD (hyperlipidemia) (Acute) Hypernatremia (Acute) Hypokalemia (Acute) Metabolic encephalopathy (Acute) Metabolic encephalopathy (Acute) Metabolic syndrome (Acute) Myoclonic jerking (Acute) Myoclonic jerking (Acute) Nausea and vomiting (Acute) PNA (pneumonia) (Acute) Parkinson disease (Acute) Hospital Course: PCP: Ro Espana - Admission Chief Complaint: Abdominal Pain, Nausea, Vomiting History of Present Illness: This is a 78 y/o woman with a PMHx of IDDM, HTN, HLD, Arthritis, Anxiety. Who presents to the ED with complaints of abdominal pain. The patient is with her daughter who is providing the history. The patient states that she has had 2 days of worsening abdominal pain which is epigastric pain which is nonradiating , associated with chills, nausea, and vomiting. She has been unable to tolerate PO for 2 days. She was recently discharged from our facility for the same abdominal pain and diagnosed with IBD. She has not been able to keep any of her medications down due to the nausea and vomiting. She denies CP, SOB, or diarrhea. She states she was recently diagnosed with a UTI and currently on abx toxic metabolic encephalopathy iv zosyn chnged to po augmentin hypernatremia improved mycolonic jerks on depakote iv changed to po will decrease dose IBS on creon and rifaximin Condition: Guarded - Instructions Diet, Activity, Other Instructions: augmentin for 5 days Referrals: Ro Espana MD [Primary Care Provider] - Disposition: SNF FACILITY - Home Medications Comprehensive Discharge Medication List: Ambulatory Orders Aspirin [ASA -] 81 mg PO DAILY 09/09/15 Olmesartan/Hydrochlorothiazide [Benicar Hct 40-12.5MG Tab -] 1 tab PO DAILY Multivitamins [Multivit ([facility] Formulary)] 1 tab PO DAILY tab 08/19/17 Donepezil HCl 10 mg PO DAILY 02/01/18 Metoclopramide HCl 5 mg PO DAILY 02/01/18 Pramipexole Di-HCl [Pramipexole Dihydrochloride] 1 mg PO HS 02/01/18 Rosuvastatin [Crestor -] 10 mg PO HS 02/01/18 Insulin Glargine,Hum.rec.anlog [Lantus (10mL VIAL) -] 34 units SQ ACBK 02/02/18 Bupropion HCl [Wellbutrin Xl -] 150 mg PO DAILY #30 tab.sr.24h 02/09/18 Divalproex [Depakote -] 250 mg PO DAILY tablet.ec 02/09/18 Nifedipine ER [Procardia XL -] 60 mg PO DAILY #30 tab.er.24 02/09/18 Pantoprazole Sodium [Protonix -] 40 mg PO DAILY #30 tablet.ec 02/09/18 Polyethylene Glycol 3350 [Miralax 119 gm Btl -] 17 gm PO BID bottle 02/09/18 Divalproex [Depakote -] 250 mg PO DAILY #30 tablet.ec 04/24/18 Lipase/Protease/Amylase [Elaine Sweeney 36,000 Units Capsule] 1 cap PO TIDCM #90 capsule. 04/24/18 Rifaximin [Xifaxan -] 550 mg PO TID #90 tablet 04/24/18 clonazePAM [Klonopin -] 0.25 mg PO Q12H PRN #60 tablet MDD 2 04/24/18 hydrALAZINE HCL [Apresoline -] 25 mg PO BID #60 tablet 04/24/18
--- NOTE | 2018-05-09 15:58 | PN ---
Progress Note, Physician History of Present Illness: Pt seen and examined at bedside. She is awake and alert. She is tolerating diet. She denies shortness of breath. - Current Medication List Current Medications: Active Medications Acetaminophen (Tylenol -) 650 mg PO Q4H PRN PRN Reason: FEVER Last Admin: 05/08/18 13:26 Dose: 650 mg Amoxicillin/Clavulanate Potassium (Augmentin - 500mg Tablet) 1 tab PO BID@0800, 1730 [facility] Last Admin: 05/09/18 09:32 Dose: 1 tab Aspirin (Ecotrin -) 81 mg PO DAILY [facility] Last Admin: 05/09/18 09:32 Dose: 81 mg Bupropion HCl (Wellbutrin Xl -) 150 mg PO DAILY [facility] Last Admin: 05/09/18 09:32 Dose: 150 mg Divalproex Sodium (Depakote -) 250 mg PO BID [facility] Donepezil HCl (Aricept -) 5 mg PO [facility] Furosemide (Lasix -) 20 mg PO DAILY [facility] Last Admin: 05/09/18 09:32 Dose: 20 mg Hydralazine HCl (Apresoline -) 25 mg PO BID [facility] Last Admin: 05/09/18 09:32 Dose: 25 mg Insulin Aspart (Novolog Vial Sliding Scale -) 1 vial SQ ACHS [facility]; Protocol Last Admin: 05/09/18 11:46 Dose: 2 units Nifedipine (Procardia Xl -) 60 mg PO DAILY [facility] Last Admin: 05/09/18 09:32 Dose: 60 mg Pancrelipase (Creon Dr 36,000 Units Capsule) 1 cap PO TIDCM [facility] Last Admin: 05/09/18 11:54 Dose: 1 cap Pantoprazole Sodium (Protonix -) 40 mg PO DAILY [facility] Last Admin: 05/09/18 09:32 Dose: 40 mg Polyethylene Glycol (Miralax (For Daily Use) -) 17 gm PO BID [facility] Last Admin: 05/09/18 09:32 Dose: 17 gm Pramipexole Dihydrochloride (Mirapex -) 1 mg PO HS [facility] Last Admin: 05/08/18 22:14 Dose: 1 mg Rifaximin (Xifaxan -) 550 mg PO TID [facility] Last Admin: 05/09/18 13:47 Dose: 550 mg Rosuvastatin Calcium (Crestor -) 10 mg PO HS [facility] Last Admin: 05/08/18 22:13 Dose: 10 mg - Objective Vital Signs: Vital Signs Temperature 98.3 F 05/09/18 15:00 Pulse Rate 74 05/09/18 15:00 Respiratory Rate 18 05/09/18 15:00 Blood Pressure 142/51 L 05/09/18 15:00 O2 Sat by Pulse Oximetry (%) 100 05/09/18 09:00 Constitutional: Yes: Calm Eyes: Yes: Conjunctiva Clear HENT: Yes: Atraumatic Neck: Yes: Supple Cardiovascular: Yes: S1, S2 Respiratory: Yes: CTA Bilaterally Gastrointestinal: Yes: Normal Bowel Sounds, Soft Genitourinary: Yes: WNL Musculoskeletal: Yes: WNL Edema: Yes Edema: LLE: Trace, RLE: Trace Neurological: Yes: Oriented Psychiatric: Yes: Oriented Labs: CBC, BMP 05/06/18 12:57 05/09/18 06:00 Problem List - Problems (1) Hypernatremia Code(s): E87.0 - HYPEROSMOLALITY AND HYPERNATREMIA Assessment/Plan Current Medications Generic Name Dose Route Start Last Admin Trade Name Freq PRN Reason Stop Dose Admin Acetaminophen 650 mg 05/02/18 10:04 05/08/18 13:26 Tylenol - PO 650 mg Q4H PRN Administration FEVER Amoxicillin/Clavulanate Potassium 1 tab 05/06/18 17:30 05/09/18 09:32 Augmentin - 500mg Tablet PO 1 tab BID@0800,1730 JOYCE Administration Aspirin 81 mg 04/28/18 10:00 05/09/18 09:32 Ecotrin - PO 81 mg DAILY JOYCE Administration Bupropion HCl 150 mg 04/28/18 10:00 05/09/18 09:32 Wellbutrin Xl - PO 150 mg DAILY JOYCE Administration Divalproex Sodium 250 mg 05/09/18 12:41 Depakote - PO BID JOYCE Donepezil HCl 5 mg 05/10/18 22:00 Aricept - PO HS JOYCE Furosemide 20 mg 05/08/18 14:30 05/09/18 09:32 Lasix - PO 20 mg DAILY JOYCE Administration Hydralazine HCl 25 mg 04/28/18 10:00 05/09/18 09:32 Apresoline - PO 25 mg BID JOYCE Administration Insulin Aspart 1 vial 04/28/18 07:00 05/09/18 11:46 Novolog Vial Sliding Scale - SQ 2 units ACHS JOYCE Administration Protocol Nifedipine 60 mg 04/28/18 10:00 05/09/18 09:32 Procardia Xl - PO 60 mg DAILY JOYCE Administration Pancrelipase 1 cap 05/05/18 12:00 05/09/18 11:54 Elaine Sweeney 36,000 Units Capsule PO 1 cap TIDCM JOYCE Administration Pantoprazole Sodium 40 mg 05/07/18 10:00 05/09/18 09:32 Protonix - PO 40 mg DAILY JOYCE Administration Polyethylene Glycol 17 gm 05/08/18 17:45 05/09/18 09:32 Miralax (For Daily Use) - PO 17 gm BID JOYCE Administration Pramipexole Dihydrochloride 1 mg 04/28/18 22:00 05/08/18 22:14 Mirapex - PO 1 mg HS JOYCE Administration Rifaximin 550 mg 05/05/18 14:00 05/09/18 13:47 Xifaxan - PO 550 mg TID JOYCE Administration Rosuvastatin Calcium 10 mg 04/28/18 22:00 05/08/18 22:13 Crestor - PO 10 mg HS JOYCE Administration Impression 1. hypernatremia 2. fecal impaction 3. HLD 4. fever 5. HTN 6. DM 7. proteinuria Plan - monitor volumes status - cont lasix at 20 - ensure adequate free water intake - will need to monitor labs closely in rehab - sodium stabilized - pt getting voiding trial
--- NOTE | 2018-05-09 16:05 | PN ---
Progress Note (short form) - Note Progress Note: NEUROLOGY PROGRESS: Events reviewed. Patient examined with daughter at the bedside. Pt much improved on Augmentin. 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 Awake, alert. Cooperative. O x SJ, 2019. Recaqlls 2019 in 3 Mins. Non-focal exam. No Myoclonus. IMP: Moderate, underlying OMS c/w AD Toxic-Metabolic Encephalopathy- improved markedly on antibiotics with improvement of OMS and resolution of Myoclonus. SUGGEST: Agree with short term rehab. Increase donepezil to 10 mg. Continue Depakote 250 mg BID Neuro f/u as out patient. Thank you very much, Panchito Helton MD
--- NOTE | 2018-05-09 16:28 | PN ---
Progress Note (short form) - Note Progress Note: NEUROLOGY ADDENDUM: Left arm is diffusely swollen x few days, according to daughter. Pt c/o left shoulder pain. Exam: Left arm is diffusely swollen. No palpable cords. No axillary masses. Mild weakness of left grasp but FMT of APB and intrinsics all 5/5. IMP: R/O DVT prior to Rehab transfer. Suggest: Will order venous ultrasound prior to transfer. Thank you very much, Panchito Helton MD
[2018-05-09 18:16] LABS: ATYPICAL pANCA <1:20 titer (Neg:<1:20); C-ANCA <1:20 titer (Neg:<1:20); P-ANCA <1:20 titer (Neg:<1:20)
--- NOTE | 2018-05-09 21:26 | HOSP ---
Subjective - Review of Symptoms Events since last encounter: Called by RN Loretta Tam that patient has returned from SNF due to lack of bed availability. The patient was returned to the same bed she was in prior to discharge and the nurse would like to know if she needs to be on telemetry. Spoke with Patient relations: Ms. Lorelei Reyes who recommends cancelling discharge (coordinated with [facility] clinical information systems director) and having the patient remain until morning to determine her final destination. Patient was assessed and noted to be comfortable and in no distress. Telemetry reordered and IV access placed overnight. All meds are active and primary team will work with case management to d/c pt in the morning. Physical Examination Vital Signs: Vital Signs Temperature 98.3 F 05/09/18 15:00 Pulse Rate 74 05/09/18 15:00 Respiratory Rate 18 05/09/18 15:00 Blood Pressure 142/51 L 05/09/18 15:00 O2 Sat by Pulse Oximetry (%) 100 05/09/18 09:00 Labs: CBC, BMP 05/06/18 12:57 05/09/18 06:00
[2018-05-09] MEDS: ROSUVASTATIN CA 10 MG TABLET (FP) PO SCH (22:28)
[2018-05-09] MEDS: PRAMIPEXOLE DIHYDROCHLORIDE 1 MG TABLET PO SCH (22:28)
[2018-05-09] MEDS: DIVALPROEX SODIUM 250 MG TABLET E.C. PO SCH (22:28)
[2018-05-10] MEDS: RIFAXIMIN 550 MG TABLET (UD) PO SCH (06:12)
[2018-05-10] MEDS: INSULIN SLIDING SCALE (NOVOLOG) 1 VIAL SQ SCH (06:16)
[2018-05-10 06:53] VITALS: TEMP 97.5
[2018-05-10] MEDS ORDERED: PT OWN MED DRAWER 7, Y5N ONE (08:33)
[2018-05-10] MEDS: LIPASE/PROTEASE/AMYLASE 36,000 UNIT CAPSULE PO SCH (08:45)
[2018-05-10] MEDS: DIVALPROEX SODIUM 250 MG TABLET E.C. PO SCH (09:01)
[2018-05-10] MEDS: ASPIRIN COATED 81 MG TABLET.EC PO SCH (09:01)
[2018-05-10] MEDS: hydrALAZINE HCL 25 MG TABLET (FP) PO SCH (09:01)
[2018-05-10] MEDS: POLYETHYLENE GLYCOL 3350 119 GM BTL PO SCH (09:01)
[2018-05-10] MEDS: PANTOPRAZOLE 40 MG TABLET (FP) PO SCH (09:01)
[2018-05-10] MEDS: FUROSEMIDE 20 MG TABLET (FP) PO SCH (09:01)
[2018-05-10] MEDS: NIFEdipine E.R 60 MG TABLET (UD) PO SCH (09:02)
--- NOTE | 2018-05-10 11:24 | PN ---
Progress Note, Physician Chief Complaint: Abdominal pain Nausea/Vomiting - Current Medication List Current Medications: Active Medications Acetaminophen (Tylenol -) 650 mg PO Q4H PRN PRN Reason: FEVER Last Admin: 05/08/18 13:26 Dose: 650 mg Aspirin (Ecotrin -) 81 mg PO DAILY [facility] Last Admin: 05/10/18 09:01 Dose: 81 mg Bupropion HCl (Wellbutrin Xl -) 150 mg PO DAILY [facility] Last Admin: 05/10/18 09:01 Dose: 150 mg Divalproex Sodium (Depakote -) 250 mg PO BID [facility] Last Admin: 05/10/18 09:01 Dose: 250 mg Donepezil HCl (Aricept -) 5 mg PO [facility] Furosemide (Lasix -) 20 mg PO DAILY [facility] Last Admin: 05/10/18 09:01 Dose: 20 mg Hydralazine HCl (Apresoline -) 25 mg PO BID [facility] Last Admin: 05/10/18 09:01 Dose: 25 mg Insulin Aspart (Novolog Vial Sliding Scale -) 1 vial SQ [facility]; Protocol Last Admin: 05/10/18 06:16 Dose: Not Given Nifedipine (Procardia Xl -) 60 mg PO DAILY [facility] Last Admin: 05/10/18 09:02 Dose: 60 mg Pancrelipase (Creon Dr 36,000 Units Capsule) 1 cap PO TIDCM [facility] Last Admin: 05/10/18 08:45 Dose: 1 cap Pantoprazole Sodium (Protonix -) 40 mg PO DAILY [facility] Last Admin: 05/10/18 09:01 Dose: 40 mg Polyethylene Glycol (Miralax (For Daily Use) -) 17 gm PO BID [facility] Last Admin: 05/10/18 09:01 Dose: 17 gm Pramipexole Dihydrochloride (Mirapex -) 1 mg PO [facility] Last Admin: 05/09/18 22:28 Dose: 1 mg Rifaximin (Xifaxan -) 550 mg PO TID [facility] Last Admin: 05/10/18 06:12 Dose: 550 mg Rosuvastatin Calcium (Crestor -) 10 mg PO [facility] Last Admin: 05/09/18 22:28 Dose: 10 mg - Objective Vital Signs: Vital Signs Temperature 97.5 F L 05/10/18 06:00 Pulse Rate 80 05/10/18 06:00 Respiratory Rate 18 05/10/18 06:00 Blood Pressure 166/87 05/10/18 06:00 O2 Sat by Pulse Oximetry (%) 98 05/09/18 21:00 Labs: CBC, BMP 05/06/18 12:57 05/09/18 06:00
--- NOTE | 2018-05-10 11:26 | PN ---
Progress Note, Physician History of Present Illness: PULMONARY ALERT,NO DISTRESS,-CP,-SOB. - Current Medication List Current Medications: Active Medications Acetaminophen (Tylenol -) 650 mg PO Q4H PRN PRN Reason: FEVER Last Admin: 05/08/18 13:26 Dose: 650 mg Aspirin (Ecotrin -) 81 mg PO DAILY [facility] Last Admin: 05/10/18 09:01 Dose: 81 mg Bupropion HCl (Wellbutrin Xl -) 150 mg PO DAILY [facility] Last Admin: 05/10/18 09:01 Dose: 150 mg Divalproex Sodium (Depakote -) 250 mg PO BID [facility] Last Admin: 05/10/18 09:01 Dose: 250 mg Donepezil HCl (Aricept -) 5 mg PO [facility] Furosemide (Lasix -) 20 mg PO DAILY [facility] Last Admin: 05/10/18 09:01 Dose: 20 mg Hydralazine HCl (Apresoline -) 25 mg PO BID [facility] Last Admin: 05/10/18 09:01 Dose: 25 mg Insulin Aspart (Novolog Vial Sliding Scale -) 1 vial SQ [facility]; Protocol Last Admin: 05/10/18 06:16 Dose: Not Given Nifedipine (Procardia Xl -) 60 mg PO DAILY [facility] Last Admin: 05/10/18 09:02 Dose: 60 mg Pancrelipase (Creon Dr 36,000 Units Capsule) 1 cap PO TIDCM [facility] Last Admin: 05/10/18 08:45 Dose: 1 cap Pantoprazole Sodium (Protonix -) 40 mg PO DAILY [facility] Last Admin: 05/10/18 09:01 Dose: 40 mg Polyethylene Glycol (Miralax (For Daily Use) -) 17 gm PO BID [facility] Last Admin: 05/10/18 09:01 Dose: 17 gm Pramipexole Dihydrochloride (Mirapex -) 1 mg PO [facility] Last Admin: 05/09/18 22:28 Dose: 1 mg Rifaximin (Xifaxan -) 550 mg PO TID [facility] Last Admin: 05/10/18 06:12 Dose: 550 mg Rosuvastatin Calcium (Crestor -) 10 mg PO HS [facility] Last Admin: 05/09/18 22:28 Dose: 10 mg - Objective Vital Signs: Vital Signs Temperature 97.5 F L 05/10/18 06:00 Pulse Rate 80 05/10/18 06:00 Respiratory Rate 18 05/10/18 06:00 Blood Pressure 166/87 05/10/18 06:00 O2 Sat by Pulse Oximetry (%) 98 05/09/18 21:00 Constitutional: Yes: Well Nourished, Calm Eyes: Yes: WNL HENT: Yes: WNL Neck: Yes: WNL Cardiovascular: Yes: Regular Rate and Rhythm, S1, S2 Respiratory: Yes: Rales (FEW BASILAR RALES) Gastrointestinal: Yes: Normal Bowel Sounds, Soft Extremities: Yes: WNL Edema: Yes Labs: CBC, BMP 05/06/18 12:57 05/09/18 06:00 Problem List - Problems (1) JASPER (acute kidney injury) Code(s): N17.9 - ACUTE KIDNEY FAILURE, UNSPECIFIED (2) Arthritis Code(s): M19.90 - UNSPECIFIED OSTEOARTHRITIS, UNSPECIFIED SITE (3) Dementia Code(s): F03.90 - UNSPECIFIED DEMENTIA WITHOUT BEHAVIORAL DISTURBANCE (4) HLD (hyperlipidemia) Code(s): E78.5 - HYPERLIPIDEMIA, UNSPECIFIED (5) 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 (6) PNA (pneumonia) Code(s): J18.9 - PNEUMONIA, UNSPECIFIED ORGANISM (7) Abdominal pain Code(s): R10.9 - UNSPECIFIED ABDOMINAL PAIN Qualifiers: Abdominal location: unspecified location Qualified Code(s): R10.9 - Unspecified abdominal pain (8) Anemia Code(s): D64.9 - ANEMIA, UNSPECIFIED (9) Diabetes mellitus with neuropathy Code(s): E11.40 - TYPE 2 DIABETES MELLITUS WITH DIABETIC NEUROPATHY, UNSP (10) Gastroparesis due to DM Code(s): E11.43 - TYPE 2 DIABETES W DIABETIC AUTONOMIC (POLY)NEUROPATHY; K31.84 - GASTROPARESIS (11) HTN (hypertension) Code(s): I10 - ESSENTIAL (PRIMARY) HYPERTENSION (12) Leukocytosis Code(s): D72.829 - ELEVATED WHITE BLOOD CELL COUNT, UNSPECIFIED (13) Parkinson disease Code(s): G20 - PARKINSON'S DISEASE Assessment/Plan Assessment/Plan IMP BILATERAL PLEURAL EFFUSIONS ABD PAIN IMPROVED ALTERED MENTAL STATUS IMPROVED DM HTN DEMENTIA PARKINSONS HLD OSTEOARTHRITIS JASPER IMPROVED MYOCLONIC JERKS ?TOXIC-METABOLIC ENCEPHALOPATHY IMPROVED HYPERNATREMIA IMPROVED PLAN AUGMENTIN O2 NEEDED MONITOR LYTES,CBC DR CAMPA Problem List - Problems (1) JASPER (acute kidney injury) Code(s): N17.9 - ACUTE KIDNEY FAILURE, UNSPECIFIED (2) Arthritis Code(s): M19.90 - UNSPECIFIED OSTEOARTHRITIS, UNSPECIFIED SITE (3) Dementia Code(s): F03.90 - UNSPECIFIED DEMENTIA WITHOUT BEHAVIORAL DISTURBANCE (4) HLD (hyperlipidemia) Code(s): E78.5 - HYPERLIPIDEMIA, UNSPECIFIED (5) 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 (6) PNA (pneumonia) Code(s): J18.9 - PNEUMONIA, UNSPECIFIED ORGANISM (7) Abdominal pain Code(s): R10.9 - UNSPECIFIED ABDOMINAL PAIN Qualifiers: Abdominal location: unspecified location Qualified Code(s): R10.9 - Unspecified abdominal pain (8) Anemia Code(s): D64.9 - ANEMIA, UNSPECIFIED (9) Diabetes mellitus with neuropathy Code(s): E11.40 - TYPE 2 DIABETES MELLITUS WITH DIABETIC NEUROPATHY, UNSP (10) Gastroparesis due to DM Code(s): E11.43 - TYPE 2 DIABETES W DIABETIC AUTONOMIC (POLY)NEUROPATHY; K31.84 - GASTROPARESIS (11) HTN (hypertension) Code(s): I10 - ESSENTIAL (PRIMARY) HYPERTENSION (12) Leukocytosis Code(s): D72.829 - ELEVATED WHITE BLOOD CELL COUNT, UNSPECIFIED (13) Parkinson disease Code(s): G20 - PARKINSON'S DISEASE
[2018-05-10 11:29] VITALS: BP 168/78; PULSE 84
[2018-05-10] MEDS ORDERED: DONEPEZIL HCL 5 MG TABLET (FP) PO SCH (22:00)
== END 2018-05-10 11:33 | DRG 682 ==
LOC: JER 18:19 → JERBED 04-28 01:01 → J6S 04-28 04:18 → J4S 05-02 18:15 → UNDODISIN 05-09 18:55
PROVIDERS: ADMIT Family Medicine; ATTEND Family Medicine
DX: N17.9 Acute kidney failure, unspecified (principal); G93.41 Metabolic encephalopathy; J18.9 Pneumonia, unspecified organism; E87.0 Hyperosmolality and hypernatremia; J90 Pleural effusion, not elsewhere classified; E78.5 Hyperlipidemia, unspecified; F41.9 Anxiety disorder, unspecified; G20 Parkinson's disease; K57.90 Diverticulosis of intestine, part unspecified, without perforation or abscess without bleeding; E11.42 Type 2 diabetes mellitus with diabetic polyneuropathy; E11.65 Type 2 diabetes mellitus with hyperglycemia; R10.9 Unspecified abdominal pain; I10 Essential (primary) hypertension; M19.90 Unspecified osteoarthritis, unspecified site; D64.9 Anemia, unspecified; E87.6 Hypokalemia; D72.829 Elevated white blood cell count, unspecified; K56.41 Fecal impaction; R50.9 Fever, unspecified; E88.81 Metabolic syndrome and other insulin resistance; G25.3 Myoclonus; K59.00 Constipation, unspecified; G30.9 Alzheimer's disease, unspecified; G25.81 Restless legs syndrome; K58.9 Irritable bowel syndrome, unspecified; R53.1 Weakness; E11.43 Type 2 diabetes mellitus with diabetic autonomic (poly)neuropathy; K31.84 Gastroparesis; R62.7 Adult failure to thrive; Z68.24 Body mass index [BMI] 24.0-24.9, adult
CPT/HCPCS: 36415; 36600; 70450-TC; 71045-TC-FY; 71250-TC; 74018-TC-FY; 74150-TC; 74178-TC; 80048; 80053; 81003; 81015; 82009; 82140; 82150; 82272; 82550; 82570; 82607; 82803; 82962; 83036; 83520; 83605; 83690; 83735; 83880; 84155; 84156; 84165; 84443; 84484; 85025; 85027; 85651; 86038; 86140; 86225; 86256; 87040; 87045; 87046; 87086; 87177; 87209; 87324; 87449; 87899; 93005; 93010; 93306-TC; 93970-TC; 95816; 97116-GP; 97161-GP; 99283-25; J1644; J7030

== ENCOUNTER 2018-06-01 16:41 | Inpatient (IN) | payer OTHER ==
--- NOTE | 2018-06-01 16:50 | PDOC ---
Rapid Medical Evaluation Time Seen by Provider: 06/01/18 16:43 Medical Evaluation: Allergies Allergy/AdvReac Type Severity Reaction Status Date / Time valsartan [From Diovan] Allergy Mild Verified 04/27/18 18:41 06/01/18 16:46 I have performed a brief in-person evaluation of this patient. The patient presents with a chief complaint of: SOB- choking sensation Pertinent physical exam findings: 3+ edema to RLE, LLE, LUE. Systolic murmur I have ordered the following: cardiac w/u The patient will proceed to the ED for further evaluation. Discharge Disposition - Diagnosis SOB (shortness of breath) - Referrals - Patient Instructions - Post Discharge Activity
--- NOTE | 2018-06-01 17:54 | PDOC ---
Attending Attestation - HPI HPI: 06/01/18 21:34 The patient is a 78 year old female, with a significant past medical history of dementia, parkinson's disease, DM, HTN, HLD who presents to the emergency department from her PMD for fluid overload associated with SOB. As per daughter , the patient has had worsening lower extremity edema for the past 2 weeks to the point that she cant walk. As per daughter, the patient also experiences onset left arm swelling for the past couple days. The patient reports her shortness of breath is aggravated while laying down and coughing. The patients last ECHO was normal (05/10). The patient was admitted 1 month ago (04/28/18) for pneumonia at [facility] and was then rehabbing for 3 weeks. The patient denies chest pain, headache, dizziness, fever, chills, nausea, and vomit. Allergies: Valsartan Past surgical history: abdominoplasty 15 yrs ago Social history: None reported PCP: Dr. Ro Garces - Physicial Exam PE: 06/01/18 21:35 GENERAL: Awake, alert, and fully oriented, in no acute distress HEAD: No signs of trauma EYES: PERRLA, EOMI, sclera anicteric, conjunctiva clear ENT: Auricles normal inspection, hearing grossly normal, nares patent, oropharynx clear without exudates. Moist mucosa NECK:Normal ROM, supple, no lymphadenopathy, or masses LUNGS: (+) crackles. (+) rails, (+) rhonchi bilaterally on both lungs. No wheezes HEART: Regular rate and rhythm, normal S1 and S2, no murmurs, rubs or gallops ABDOMEN: Soft, nontender, normoactive bowel sounds. No guarding, no rebound. No masses EXTREMITIES: (+) 3+ pitting edema on left leg. (+) 2+ pitting edema on right leg. (+) 4+ pitting edema on both legs bilaterally above knee. Normal range of motion. No clubbing or cyanosis. No cords, erythema, NEUROLOGICAL: Cranial nerves II through XII grossly intact. Normal speech, SKIN: Warm, Dry, normal turgor, no rashes or lesions noted. <Ramos Sykes - Last Filed: 06/01/18 21:34> - Resident Resident Name: Chris Merrill - ED Attending Attestation I have performed the following: I have examined & evaluated the patient, The case was reviewed & discussed with the resident, I agree w/resident's findings & plan, Exceptions are as noted - Medical Decision Making 06/01/18 17:54 I, Dr. Carlene Buitrago DO, attest that this document has been prepared under my direction and personally reviewed by me in its entirety. I further attest, that it accurately reflects all work, treatment, procedures and medical decision -making performed by me. 06/01/18 21:18 a/p: 78yo female with increasing edema and sob -still with cough -recent pna dx -edema in both arms and legs, L arm>R arm -will send labs -last echo shows normal ef and normal lv function, no diastolic dysfunction -had elevated trop and elevated bnp on last admission -will obtain ekg, cxr 06/01/18 21:20 cxr shows increased fluid will obtain ct chest to eval for residual pna no fever, no elevated wbc cards is dr. drew elevated bnp- lasix ordered vascular duplex ultrasound negative for dvt microblog sent to [facility] covering for dr. garces for anasarca 06/01/18 21:51 resident discussed the case with Dr. Philip who accepts pt to service <Carlene Buitrago - Last Filed: 06/01/18 21:51> Attestations - Attestations 06/01/18 21:36 Documentation prepared by Ramos Sykes, acting as medical practice administrator for Carlene Buitrago DO, MD <Ramos Sykes - Last Filed: 06/01/18 21:34>
[2018-06-01 18:22] LABS: BASO % 1.3 % (0-2.0); EOS % 4.2 % (0-4.5); HEMATOCRIT 26.9 % (32.4-45.2); HEMOGLOBIN 9.2 GM/dL (10.7-15.3); LYMPH % 18.9 % (8-40); MCH 27.4 pg (25.7-33.7); MCHC 34.1 g/dl (32.0-36.0); MEAN CELL VOLUME 80.3 fl (80-96); MEAN PLT VOLUME 6.6 fl (7.5-11.1); MONO % 16.5 % (3.8-10.2); NEUT % 59.1 % (42.8-82.8); PLATELET COUNT 530 K/MM3 (134-434); RBC 3.35 M/mm3 (3.60-5.2); RDW 16.4 % (11.6-15.6); WHITE BLOOD COUNT 5.7 K/mm3 (4.0-10.0)
--- NOTE | 2018-06-01 18:22 | PDOC ---
History of Present Illness - General Chief Complaint: Shortness of Breath Stated Complaint: DR SENT Time Seen by Provider: 06/01/18 16:43 - History of Present Illness Initial Comments: 06/01/18 18:17 78 yo F [place] resident h/o dementia, parkinson's disease, DM, HTN, HLD sent by her PMD for fluid overload. Daughter at bedside endorses worsening LE edema over the last few weeks and new onset of sudden L arm swelling in L arm started few days ago. Patient's lasix was increased from 20 mg daily to 40 on 05/23/18. She's now unable to ambulate due to the severe LE swelling. Her last ECHO in 05/10 was normal. Denies chest pain, fever, chill, n/v, focal weakness, urinary or bowel symptoms. 06/01/18 18:23 JVD and crackles on exam, L fasciular block which is new on EKG will send trop, CBC, CMP, BNP. Will do duplex of L arm and b/l LE to r/o DVT Past History - Past Medical History Allergies/Adverse Reactions: Allergies Allergy/AdvReac Type Severity Reaction Status Date / Time valsartan [From Diovan] Allergy Mild Verified 06/01/18 16:47 Home Medications: Ambulatory Orders Aspirin [ASA -] 81 mg PO DAILY 09/09/15 Multivitamins [Multivit ([facility] Formulary)] 1 tab PO DAILY tab 08/19/17 Donepezil HCl 10 mg PO DAILY 02/01/18 Pramipexole Di-HCl [Pramipexole Dihydrochloride] 1 mg PO HS 02/01/18 Rosuvastatin [Crestor -] 10 mg PO HS 02/01/18 Bupropion HCl [Wellbutrin Xl -] 150 mg PO DAILY #30 tab.sr.24h 02/09/18 Nifedipine ER [Procardia XL -] 60 mg PO DAILY #30 tab.er.24 02/09/18 Pantoprazole Sodium [Protonix -] 40 mg PO DAILY #30 tablet.ec 02/09/18 Polyethylene Glycol 3350 [Miralax 119 gm Btl -] 17 gm PO BID bottle 02/09/18 Lipase/Protease/Amylase [Elaine Sweeney 36,000 Units Capsule] 1 cap PO TIDCM #90 capsule. 04/24/18 Rifaximin [Xifaxan -] 550 mg PO TID #90 tablet 04/24/18 clonazePAM [Klonopin -] 0.25 mg PO Q12H PRN #60 tablet MDD 2 04/24/18 hydrALAZINE HCL [Apresoline -] 25 mg PO BID #60 tablet 04/24/18 Amox-Tr/K Cl [Augmentin 500-125mg Tablet -] 1 tab PO BID@0800,1730 #10 tablet MDD 2 05/09/18 Divalproex [Depakote -] 250 mg PO BID #30 tablet.ec MDD 2 05/09/18 Anemia: No Asthma: No Cancer: No Cardiac Disorders: No CVA: No COPD: No CHF: No DVT: No Dementia: Yes Diabetes: Yes GI Disorders: Yes (DIVERTICULOSIS, IBM) Disorders: Yes (UTERINE POLYPS,URINARY INCONTINENCE) HTN: Yes Hypercholesterolemia: Yes Liver Disease: No Seizures: No Thyroid Disease: No - Surgical History Abdominal Surgery: (abdominoplasty 15 yrs ago (tissue became necrotic)) Appendectomy: Yes Cardiac Surgery: No Cholecystectomy: Yes Lung Surgery: No Neurologic Surgery: No Orthopedic Surgery: No - Immunization History Immunization Up to Date: Yes - Suicide/Smoking/Psychosocial Hx Smoking Status: No Smoking History: Never smoked Have you smoked in the past 12 months: No Number of Cigarettes Smoked Daily: 0 Hx Alcohol Use: No Drug/Substance Use Hx: No Substance Use Type: None Hx Substance Use Treatment: No Review of Systems - Review of Systems Able to Perform ROS?: Yes Is the patient limited Luxembourgish proficient: No Constitutional: No: Chills, Fever, Weakness Respiratory: Yes: Orthopnea. No: Cough, Shortness of Breath Cardiac (ROS): Yes: Edema. No: Chest Pain ABD/GI: No: Diarrhea, Nausea, Vomiting Neurological: No: Headache *Physical Exam - Vital Signs Last Vital Signs Temp Pulse Resp BP Pulse Ox 97.4 F L 80 20 139/55 L 95 06/01/18 16:47 06/01/18 16:47 06/01/18 16:47 06/01/18 16:47 06/01/18 16:47 - Physical Exam General Appearance: No: Nourished Cardiovascular: positive: Regular Rhythm, Regular Rate, S1, S2, Edema (b/l LE + 3 and L arm nonpitting), JVD. negative: Murmur Gastrointestinal/Abdominal: positive: Normal Bowel Sounds, Soft. negative: Tender Neurologic: positive: Fully Oriented, Alert Moderate Sedation - Procedure Monitoring Vital Signs: Procedure Monitoring Vital Signs Temperature 97.4 F L 06/01/18 16:47 Pulse Rate 80 06/01/18 16:47 Respiratory Rate 20 06/01/18 16:47 Blood Pressure 139/55 L 06/01/18 16:47 O2 Sat by Pulse Oximetry (%) 95 06/01/18 16:47 ED Treatment Course - LABORATORY CBC & Chemistry Diagram: 06/01/18 17:41 06/01/18 17:41 - RADIOLOGY Radiology Studies Ordered: Category Date Time Status DUPLEX VASCUL US-1 ARM [US] Stat Ultrasound 06/01/18 18:15 Ordered DUPLEX VASCUL US-2LEGS [US] Stat Ultrasound 06/01/18 18:15 Ordered *DC/Admit/Observation/Transfer Diagnosis at time of Disposition: SOB (shortness of breath) - Referrals Referrals: Ro Espana MD [Primary Care Provider] - - Patient Instructions - Post Discharge Activity
[2018-06-01 18:43] LABS: INR 1.06 (0.83-1.09); PROTHROMBIN TIME (PATIENT) 12.5 SEC (9.7-13.0)
[2018-06-01 19:35] LABS: ALBUMIN 2.8 g/dl (3.4-5.0); ALK PHOS 128 U/L (45-117); ANION GAP 7 MMOL/L (8-16); BILIRUBIN,TOTAL 0.2 mg/dL (0.2-1); BLOOD UREA NITROGEN 16 mg/dL (7-18); CALCIUM 8.7 mg/dL (8.5-10.1); CHLORIDE 96 mmol/L (98-107); CO2 29 mmol/L (21-32); CREATININE 1.5 mg/dL (0.55-1.3); GLUCOSE,RANDOM 155 mg/dL (74-106); MAGNESIUM 2.2 mg/dL (1.8-2.4); N-TERMINAL BNP 3962.8 pg/ml (5-450); POTASSIUM 5.1 mmol/L (3.5-5.1); SGOT/AST 21 U/L (15-37); SGPT/ALT 14 U/L (13-61); SODIUM 132 mmol/L (136-145); TOT PROT 6.7 g/dl (6.4-8.2)
[2018-06-01] MEDS ORDERED: FUROSEMIDE 40 MG/4 ML INJECTABLE VIAL IVPUSH ONE (20:22)
--- NOTE | 2018-06-01 20:33 | PDOC ---
*Physical Exam - Vital Signs Last Vital Signs Temp Pulse Resp BP Pulse Ox 97.4 F L 80 20 139/55 L 95 06/01/18 16:47 06/01/18 16:47 06/01/18 16:47 06/01/18 16:47 06/01/18 16:47 ED Treatment Course - LABORATORY CBC & Chemistry Diagram: 06/01/18 17:41 06/01/18 17:41 - ADDITIONAL ORDERS Additional order review: Laboratory Results 06/01/18 06/01/18 17:41 17:41 PT with INR 12.50 INR 1.06 Sodium 132 L Potassium 5.1 Chloride 96 L Carbon Dioxide 29 Anion Gap 7 L BUN 16 Creatinine 1.5 H Creat Clearance w eGFR 33.76 Random Glucose 155 H Calcium 8.7 Magnesium 2.2 Total Bilirubin 0.2 AST 21 ALT 14 Alkaline Phosphatase 128 H Creatine Kinase 76 B-Natriuretic Peptide 3962.8 H Total Protein 6.7 Albumin 2.8 L 06/01/18 17:41 RBC 3.35 L MCV 80.3 MCHC 34.1 RDW 16.4 H MPV 6.6 L D Neutrophils % 59.1 D Lymphocytes % 18.9 D Monocytes % 16.5 H D Eosinophils % 4.2 Basophils % 1.3 Medical Decision Making - Medical Decision Making 06/01/18 20:31 Pt signed out to me by Dr. Merrill 78yo F with PMH of dementia, parkinson's disease, DM, HTN, HLD sent by her PMD for fluid overload with worsening LE edema over the last few weeks and new onset of sudden L arm swelling in L arm started few days ago. Her last ECHO in was normal. Denies chest pain, fever, chill, n/v, focal weakness, urinary or bowel symptoms. Labs significant for Hgb 9.2 (baseline) BNP 3200 Trop pending CR 1.5 (usually around 1.2) Giving lasix 40mg IV. Will admit CXR shows more fluid compared to last CXR CT chest w/o contrast ordered. Pt admitted to Tele inpatient 06/01/18 22:07 *DC/Admit/Observation/Transfer Diagnosis at time of Disposition: SOB (shortness of breath), JASPER (acute kidney injury) Edema Qualifiers: Edema type: unspecified Qualified Code(s): R60.9 - Edema, unspecified CHF (congestive heart failure) Qualifiers: Heart failure type: unspecified Heart failure chronicity: acute Qualified Code( s): I50.9 - Heart failure, unspecified - Discharge Dispostion Condition at time of disposition: Good Decision to Admit order: Yes - Referrals - Patient Instructions - Post Discharge Activity
[2018-06-01] MEDS ORDERED: FUROSEMIDE 40 MG/4 ML INJECTABLE VIAL ONE (23:19)
--- NOTE | 2018-06-01 23:33 | PN ---
Teaching Attending Note Name of Resident: Panchito Acosta ATTENDING PHYSICIAN STATEMENT I saw and evaluated the patient. I reviewed the resident's note and discussed the case with the resident. I agree with the resident's findings and plan as documented. SUBJECTIVE: Patient is a 78 year old woman with a PMH of dementia, parkinson's disease, DM, HTN, HLD who presents to the ER from her PMD for fluid overload associated with SOB. As per daughter, the patient has had worsening lower extremity edema for the past 2 weeks to the point that she cant walk. As per daughter, the patient also experiences onset left arm swelling for the past couple days. The patient reports her shortness of breath is aggravated while laying down and coughing. The patients last ECHO was normal (05/10). The patient was admitted 1 month ago ( 04/28/18) for pneumonia at [facility] and was then getting Rehabilitation for 3 weeks. Her cough is nonproductive. She denies chest pain, headache, dizziness, fever, chills, nausea, vomiting or dysuria. OBJECTIVE: Alert and weak Vital Signs Period Temp Pulse Resp BP Sys/East Pulse Ox Last 24 Hr 97.4 F 80 20 139/55 95 HEENT: No Jaundice, eye redness or discharge, PERRLA, EOMI. Normocephalic, atraumatic. External ears are normal and hearing is grossly intact. No nasal discharge. Neck: Supple, nontender. No palpable adenopathy or thyromegaly. No JVD Chest: Diminished breath sounds. Bibasilar crackles. Clear to percussion. Heart: Regular. No S3, rub or murmur Abdomen: Not distended, soft, nontender and no HSM. No rebound or guarding. Normal bowel sounds. Ext: Peripheral pulses intact. Anasarca; LUE > RUE; pitting leg edema. Skin: Warm and dry. Bruises on right arm and right side of abdomen. No petechiae , rash or ecchymosis. Neuro: Alert. Oriented person and place. CN 2-12 grossly intact. Sensation grossly intact in all four extremities and DTR are symmetric. Gait cannot be tested for safety reasons. Psych: Appropriate mood and affect. Good insight. Home Medications Medication Instructions Recorded Aspirin [ASA -] 81 mg PO DAILY 09/09/15 Donepezil HCl 10 mg PO DAILY 02/01/18 Bupropion HCl [Wellbutrin Xl -] 150 mg PO DAILY #30 tab.sr.24h 02/09/18 Nifedipine ER [Procardia XL -] 60 mg PO DAILY #30 tab.er.24 02/09/18 Pantoprazole Sodium [Protonix -] 40 mg PO DAILY #30 tablet.ec 02/09/18 Lipase/Protease/Amylase [Creon Dr 1 cap PO TIDCM #90 capsule. 04/24/18 36,000 Units Capsule] Divalproex [Depakote -] 250 mg PO BID #30 tablet.ec MDD 2 05/09/18 Acetaminophen [Tylenol] 650 mg PO Q4H PRN 06/01/18 Cranberry Fruit Extract [Cranberry 1 gm PO DAILY 06/01/18 Extract] Ferrous Sulfate 325 mg PO DAILY 06/01/18 Furosemide [Lasix] 40 mg PO ASDIR 06/01/18 Insulin Aspart [Novolog] 0 unit SQ ASDIR 06/01/18 Insulin Glargine,Hum.rec.anlog 10 unit SQ HS 06/01/18 [Basaglar Kwikpen U-100] Polyethylene Glycol 3350 [Miralax 17 gm PO DAILY 06/01/18 (For Daily Use) -] Pramipexole Di-HCl [Mirapex] 1 mg PO DAILY 06/01/18 Simvastatin 20 mg PO DAILY 06/01/18 Tramadol HCl 50 mg PO BID 06/01/18 hydrALAZINE HCL [Apresoline -] 50 mg PO TID 06/01/18 Abnormal Lab Results 06/01/18 06/01/18 17:41 17:41 RBC 3.35 L Hgb 9.2 L Hct 26.9 L RDW 16.4 H Plt Count 530 H D MPV 6.6 L D Monocytes % 16.5 H D Sodium 132 L Chloride 96 L Anion Gap 7 L Creatinine 1.5 H Random Glucose 155 H Alkaline Phosphatase 128 H B-Natriuretic Peptide 3962.8 H Albumin 2.8 L ASSESSMENT AND PLAN: 1. CHF exacerbation/Pneumonia/Anasarca - CXR shows cardiomegaly with pulmonary congestion, bilateral pleural effusion and RLL consolidation. ECHO frol 05/03/18 showed normal LV and RV systolic function; LVEF of 70% and large left pleural effusion. She does not have an established diagnosis of diastolic CHF. Will get a chest CT scan to rule out RLL pneumonia; get doppler of her central veins and leg doppler to rule out DVT; repeat ECHO; get urinalysis and urine protein/ creatinine ratio to rule out nephrotic syndrome, get fasting lipids and diurese her with appropriate dose of IV lasix. Elevate legs with pillow when lying down. Get daily standing weight and restrict dietary salt intake. Implement fall precautions. Based on result of chest CT, will decide on antibiotics therapy and diagnostic thoracentesis. No signficicant ST-T wave changes on EKG but has new left anterior fascicular block. Family does not know why she is on RIFAXIMIN; will get liver/abdominal sonogram. Consult cardiology and pulmonary. Continue comprehensive Dementia and Parkinsons's disease care. 2. Hypoalbuminemia - Possibly due to combined effects of malnutrition and inflammation associated with comorbid chronic conditions. Will ensure adequate dietary protein intake and also consult survey research associate. Urinalysis for proteinuria pending. 3. DM For now, we will hold the home diabetes drugs and implement sliding scale insulin regimen. Provide comprehensive diabetes care with patient teaching and counseling about the importance of adherence to prescribed diabetes regimen, euglycemia, eye care and foot care. 4. CKD - Though she has rsik factors for CKD, may have superimposed JASPER due to intravascular volume contraction. UA pending. Get kidney sonogram, PTH and phosphate levels. Will consult nephrology and avoid nephrotoxic agents such as NSAIDS, aminoglycosides, contrast dyes and certain Alternative medicine products. 5. Anemia - May be partly due to renal disease. Will do basic anemia work up including serial stool guaiacs, reticulocyte count and iron studies. Would benefit from Procrit therapy once iron replete. 6. Hypertension - Restart outpatient antihypertensive drugs and revise regimen to ensure smooth [id number] good BP control. Nonpharmacologic measures to control hypertension like weight loss, salt restriction and exercise discussed. 7. DVT prophylaxis - Heparin 5000u sq tid. 8. Advance directives - Full code
[2018-06-02] MEDS ORDERED: DIVALPROEX SODIUM 250 MG TABLET E.C. PO SCH (01:45)
[2018-06-02] MEDS ORDERED: DIVALPROEX SODIUM 125 MG TABLET E.C. ONE (01:47)
--- NOTE | 2018-06-02 02:25 | HP ---
CHIEF COMPLAINT: Shortness of Breath PCP: Dr. Espana HISTORY OF PRESENT ILLNESS: Pt. is a 78 y.o. Greenlandic-speaking F presenting under request from PMD for fluid volume overload. Pt. is a poor historian. Per Pt.s daughter Pt. has been having worsening LE edema over the last 2 weeks and sudden onset LUE edema. Pt. recently(05/25/18) had Lasix increased to 40 mg with minimal effect. Daughter stated that her mother is now unable to walk because of the pain from the swelling in the lower extremities. Pt. states she does not remember falling however the daughter noted the presence of new bruises on abdomen and on arm. Pt. endorses dyspnea on exertion, increased dyspnea when lying flat, pleuritic chest pain, and decrease appetite. Pt. denies any fevers, changes in bowel or urinary habits, headaches, dizziness, lightheadedness, nausea or vomiting. ER course was notable for: (1)EKG, LE Duplex, LUE duplex (2)CXR, Chest CT (3)CBC, CMP, Troponin, BNP Recent Travel: No PAST MEDICAL HISTORY: Dementia, Parkinson's, IDDM, HTN, HLD, Anxiety, Arthritis PAST SURGICAL HISTORY: Abdominoplasty (15 years ago), Appendectomy, Choecystectomy, Social History: Smoking: Denies Alcohol: Denies Drugs: Denies Family History: Non-contributory Allergies valsartan [From 24h00van] Allergy (Mild, Verified 06/01/18 16:47) HOME MEDICATIONS: Home Medications Medication Instructions Recorded Aspirin [ASA -] 81 mg PO DAILY 09/09/15 Donepezil HCl 10 mg PO DAILY 02/01/18 Bupropion HCl [Wellbutrin Xl -] 150 mg PO DAILY #30 tab.sr.24h 02/09/18 Nifedipine ER [Procardia XL -] 60 mg PO DAILY #30 tab.er.24 02/09/18 Pantoprazole Sodium [Protonix -] 40 mg PO DAILY #30 tablet.ec 02/09/18 Lipase/Protease/Amylase [Elaine Sweeney 1 cap PO TIDCM #90 capsule. 04/24/18 36,000 Units Capsule] Divalproex [Depakote -] 250 mg PO BID #30 tablet.ec MDD 2 05/09/18 Acetaminophen [Tylenol] 650 mg PO Q4H PRN 06/01/18 Cranberry Fruit Extract [Cranberry 1 gm PO DAILY 06/01/18 Extract] Ferrous Sulfate 325 mg PO DAILY 06/01/18 Furosemide [Lasix] 40 mg PO ASDIR 06/01/18 Insulin Aspart [Novolog] 0 unit SQ ASDIR 06/01/18 Insulin Glargine,Hum.rec.anlog 10 unit SQ HS 06/01/18 [Basaglar Kwikpen U-100] Polyethylene Glycol 3350 [Miralax 17 gm PO DAILY 06/01/18 (For Daily Use) -] Pramipexole Di-HCl [Mirapex] 1 mg PO DAILY 06/01/18 Simvastatin 20 mg PO DAILY 06/01/18 Tramadol HCl 50 mg PO BID 06/01/18 hydrALAZINE HCL [Apresoline -] 50 mg PO TID 06/01/18 REVIEW OF SYSTEMS CONSTITUTIONAL: malaise, loss of appetite, weight change Absent: fever, chills, diaphoresis, generalized weakness, HEENT: Absent: rhinorrhea, nasal congestion, throat pain, throat swelling, difficulty swallowing, mouth swelling, ear pain, eye pain, visual changes CARDIOVASCULAR: chest pain Absent: syncope, palpitations, irregular heart rate, lightheadedness, peripheral edema RESPIRATORY: shortness of breath, dyspnea with exertion, orthopnea, Absent: cough, wheezing, stridor, hemoptysis GASTROINTESTINAL: Absent: abdominal pain, abdominal distension, nausea, vomiting, diarrhea, constipation, melena, hematochezia GENITOURINARY: Absent: dysuria, frequency, urgency, hesitancy, hematuria, flank pain, genital pain MUSCULOSKELETAL: back pain Absent: myalgia, arthralgia, joint swelling, neck pain SKIN: Absent: rash, itching, pallor HEMATOLOGIC/IMMUNOLOGIC: Absent: easy bleeding, easy bruising, lymphadenopathy, frequent infections ENDOCRINE: unexplained weight gain Absent: , unexplained weight loss, heat intolerance, cold intolerance NEUROLOGIC: Absent: headache, focal weakness or paresthesias, dizziness, unsteady gait, seizure, mental status changes, bladder or bowel incontinence PSYCHIATRIC: Absent: anxiety, depression, suicidal or homicidal ideation, hallucinations. PHYSICAL EXAMINATION Vital Signs - 24 hr 06/01/18 16:47 Temperature 97.4 F L Pulse Rate 80 Respiratory 20 Rate Blood Pressure 139/55 L O2 Sat by Pulse 95 Oximetry (%) GENERAL: Awake, alert, and fully oriented, in mild distress. HEAD: Normal with no signs of trauma. EYES: Pupils equal, round and reactive to light, extraocular movements intact, sclera anicteric, conjunctiva clear. EARS, NOSE, THROAT: Ears normal, nares patent, oropharynx clear without exudates. Moist mucous membranes. NECK: Normal range of motion, supple without lymphadenopathy, JVD, no carotid bruit or masses. LUNGS: Diffuse crackles, decreased breath sounds, dyspnea when talking, No accessory muscle use. HEART: Regular rate and rhythm, normal S1 and S2 without murmur ABDOMEN: Soft, nontender, not distended, normoactive bowel sounds, no guarding, no rebound, Old surgical scars, RUQ ecchymosis. MUSCULOSKELETAL: Lumbrosacral tenderness to palpation. No CVA tenderness. UPPER EXTREMITIES: 2+ radial pulses, warm, well-perfused. No cyanosis. No clubbing. Edematous L>R, RUE ecchymosis LOWER EXTREMITIES: 2+ dorsal pedal pulses, warm, well-perfused. Diffuse tenderness to palpation distal to the knees, 2+ pitting edema. NEUROLOGICAL: Forgetful, Labored speech. Gait not assessed PSYCHIATRIC: Cooperative. Good eye contact. Appropriate mood and affect. SKIN: Warm, dry, normal capillary refill. Laboratory Results - last 24 hr 06/01/18 06/01/18 06/01/18 17:41 17:41 17:41 WBC 5.7 RBC 3.35 L Hgb 9.2 L Hct 26.9 L MCV 80.3 MCH 27.4 MCHC 34.1 RDW 16.4 H Plt Count 530 H D MPV 6.6 L D Absolute Neuts (auto) 3.4 Neutrophils % 59.1 D Lymphocytes % 18.9 D Monocytes % 16.5 H D Eosinophils % 4.2 Basophils % 1.3 Nucleated RBC % 0 PT with INR 12.50 INR 1.06 Sodium 132 L Potassium 5.1 Chloride 96 L Carbon Dioxide 29 Anion Gap 7 L BUN 16 Creatinine 1.5 H Creat Clearance w eGFR 33.76 Random Glucose 155 H Calcium 8.7 Magnesium 2.2 Total Bilirubin 0.2 AST 21 ALT 14 Alkaline Phosphatase 128 H Creatine Kinase 76 Troponin I < 0.02 B-Natriuretic Peptide 3962.8 H Total Protein 6.7 Albumin 2.8 L ASSESSMENT/PLAN: Pt. is a 78 y.o. Greenlandic-speaking F w/ PMHx. of Dementia, Parkinson's, IDDM, HTN , HLD, Anxiety, Arthritis presents under request from PMD for Dyspnea 2/2 fluid volume overload. # B/L Pleural Effusion CT Chest on preliminary read noted b/l pleural effusion w/ compressive atelectasis/ pneumonia and small pericardial effusion f/u Pulmonary consult f/u Cardiology consult Last Echo 05/10 Normal Heart fxn, b/l pleural effusion L>R. f/u Echo given new left fasicular block on EKG consider diagnostic thoracocentesis c/w Lasix, consider increasing BNP: 3,962 consider subclavian thrombosis #Anasarca Last Echo normal Duplex of LE and LUE negative for thrombosis c/w Lasix #CKD Prior creatinine of 1.0 likely not accurate indication of renal function given chronic low eGFR monitor urine output f/u UA, urine protein/creatinine ratio f/u Renal US f/u Renal consult (Dr. Yu) #IDDM ISS TIDAC BGM TIDAC last A1c(04/28/18): 10.4 Pt. endorses ussual BG of 300s at home. #Hepatic damage? f/u why Pt. is on Rifaximin f/u Abd. US Platelets 530k, INR 1.0, LFTs wnl #Anemia consider Iron studies, reticulocyte count and serial FOBT Pt. states her last colonoscopy was negative and denies any melena or hematochezia #FEN encourage PO intake monitor electrolytes, replete as needed Diabetic Diet #DVT Ppx. Hep SQ TID Visit type - Emergency Visit Emergency Visit: Yes ED Registration Date: 06/03/18 Care time: The patient presented to the Emergency Department on the above date and was hospitalized for further evaluation of their emergent condition. - New Patient This patient is new to me today: Yes Date on this admission: 06/03/18 - Critical Care Critical Care patient: No
[2018-06-02 05:20] VITALS: BMI 24.8
[2018-06-02] MEDS ORDERED: ACETAMINOPHEN 325 MG TABLET (FP) PO PRN (05:54)
[2018-06-02] MEDS: HEPARIN NA (PORCINE) 5,000 UNITS/ML 1ML VIAL SQ SCH ×3 (07:10→21:46)
[2018-06-02] MEDS: hydrALAZINE HCL 50 MG TABLET (FP) PO SCH ×3 (07:11→21:46)
[2018-06-02 08:33] LABS: ALBUMIN 2.6 g/dl (3.4-5.0); ALK PHOS 114 U/L (45-117); ANION GAP 5 MMOL/L (8-16); BILIRUBIN,TOTAL 0.3 mg/dL (0.2-1); BLOOD UREA NITROGEN 13 mg/dL (7-18); CALCIUM 8.6 mg/dL (8.5-10.1); CHLORIDE 97 mmol/L (98-107); CO2 30 mmol/L (21-32); CREATININE 1.1 mg/dL (0.55-1.3); GLUCOSE,RANDOM 108 mg/dL (74-106); MAGNESIUM 2.1 mg/dL (1.8-2.4); POTASSIUM 4.1 mmol/L (3.5-5.1); SGOT/AST 22 U/L (15-37); SGPT/ALT 13 U/L (13-61); SODIUM 132 mmol/L (136-145); TOT PROT 6.2 g/dl (6.4-8.2)
[2018-06-02 08:35] LABS: BASO % 1.1 % (0-2.0); EOS % 5.6 % (0-4.5); HEMATOCRIT 26.5 % (32.4-45.2); HEMOGLOBIN 9.1 GM/dL (10.7-15.3); LYMPH % 16.2 % (8-40); MCH 27.4 pg (25.7-33.7); MCHC 34.2 g/dl (32.0-36.0); MEAN CELL VOLUME 79.9 fl (80-96); MEAN PLT VOLUME 6.4 fl (7.5-11.1); MONO % 12.8 % (3.8-10.2); NEUT % 64.3 % (42.8-82.8); PLATELET COUNT 462 K/MM3 (134-434); RBC 3.31 M/mm3 (3.60-5.2); RDW 16.4 % (11.6-15.6); WHITE BLOOD COUNT 5.1 K/mm3 (4.0-10.0)
[2018-06-02 09:04] LABS: INR 1.07 (0.83-1.09); PROTHROMBIN TIME (PATIENT) 12.6 SEC (9.7-13.0)
[2018-06-02] MEDS ORDERED: PT OWN MED DRAWER 7, Y5N ONE ×4 (09:12→19:37)
[2018-06-02] MEDS: NIFEdipine E.R 60 MG TABLET (UD) PO SCH (09:19)
--- NOTE | 2018-06-02 10:50 | EKG ---
Test Reason : Blood Pressure : / mmHG Vent. Rate : 078 BPM Atrial Rate : 078 BPM P-R Int : 158 ms QRS Dur : 104 ms QT Int : 370 ms P-R-T Axes : 012 -48 089 degrees QTc Int : 421 ms NORMAL SINUS RHYTHM LEFT ANTERIOR FASCICULAR BLOCK SEPTAL INFARCT , AGE UNDETERMINED ABNORMAL ECG WHEN COMPARED WITH ECG OF 29-APR-2018 02:38, SINUS RHYTHM HAS REPLACED JUNCTIONAL RHYTHM SEPTAL INFARCT IS NOW PRESENT Confirmed by JAZMYN CARRIZALES MD ([id number]) on 06/02/2018 10:50:13 AM Referred By: Confirmed By:JAZMYN CARRIZALES MD
[2018-06-02] MEDS: ASPIRIN 81 MG CHEWABLE TABLETS PO SCH (11:22)
[2018-06-02] MEDS: PANTOPRAZOLE 40 MG TABLET (FP) PO SCH (11:22)
[2018-06-02] MEDS: DIVALPROEX SODIUM 250 MG TABLET E.C. PO SCH ×2 (11:22→21:46)
[2018-06-02] MEDS: FERROUS SO4 325 MG TABLET (FP) PO SCH (11:22)
[2018-06-02] MEDS: traMADol HCL 50 MG TABLET PO SCH ×2 (11:22→21:47)
[2018-06-02] MEDS: FUROSEMIDE 40 MG TABLET (FP) PO SCH (11:22)
[2018-06-02] MEDS: DONEPEZIL HCL 10 MG TABLET (FP) PO SCH (11:24)
[2018-06-02] MEDS: LIPASE/PROTEASE/AMYLASE 36,000 UNIT CAPSULE PO SCH ×4 (11:24→17:25)
[2018-06-02] MEDS: POLYETHYLENE GLYCOL 3350 119 GM BTL PO SCH (11:25)
[2018-06-02] MEDS: PRAMIPEXOLE DIHYDROCHLORIDE 1 MG TABLET PO SCH (11:25)
--- NOTE | 2018-06-02 12:35 | CONSULT ---
Consult Consult Specialty:: Nephrology Reason for Consultation:: JASPER and fluid overload - History of Present Illness Chief Complaint: sent in for fluid overload History of Present Illness: Pt is a 78 year old female with pmhx of DM, HTN, dementia, Parkinsons, and HLD who was sent in for fluid overload. She was given lasix. She feels that her breathing is a little better. She also complains of lower ext edema. She was on 20 mg of lasix at home which was increased to 40 mg with little effect. She was also found to have elevated creatinine. She denies dysuria or hematuria. - History Source History Provided By: Patient - Past Medical History HUMAN RESOURCES HR REPRESENTATIVE: Yes: Dementia, Peripheral Neuropathy, Parkinson's Cardio/Vascular: Yes: HTN, Hyperlipdemia Gastrointestinal: Yes: Diverticulosis ...: No Psych: Yes: Anxiety Musculoskeletal: Yes: Osteoarthritis Endocrine: Yes: Diabetes Mellitus - Past Surgical History Past Surgical History: Yes: Appendectomy, Cholecystectomy, - Alcohol/Substance Use Hx Alcohol Use: No - Smoking History Smoking history: Never smoked Have you smoked in the past 12 months: No Aproximately how many cigarettes per day: 0 - Social History Usual Living Arrangement: With Significant Other 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 History of Recent Travel: No Home Medications - Allergies Allergies/Adverse Reactions: Allergies Allergy/AdvReac Type Severity Reaction Status Date / Time valsartan [From Diovan] Allergy Mild Verified 06/01/18 16:47 - Home Medications Home Medications: Ambulatory Orders Aspirin [ASA -] 81 mg PO DAILY 09/09/15 Donepezil HCl 10 mg PO DAILY 02/01/18 Bupropion HCl [Wellbutrin Xl -] 150 mg PO DAILY #30 tab.sr.24h 02/09/18 Nifedipine ER [Procardia XL -] 60 mg PO DAILY #30 tab.er.24 02/09/18 Pantoprazole Sodium [Protonix -] 40 mg PO DAILY #30 tablet.ec 02/09/18 Lipase/Protease/Amylase [Elaine Sweeney 36,000 Units Capsule] 1 cap PO TIDCM #90 capsule. 04/24/18 Divalproex [Depakote -] 250 mg PO BID #30 tablet.ec MDD 2 05/09/18 Acetaminophen [Tylenol] 650 mg PO Q4H PRN 06/01/18 Cranberry Fruit Extract [Cranberry Extract] 1 gm PO DAILY 06/01/18 Ferrous Sulfate 325 mg PO DAILY 06/01/18 Furosemide [Lasix] 40 mg PO ASDIR 06/01/18 Insulin Aspart [Novolog] 0 unit SQ ASDIR 06/01/18 Insulin Glargine,Hum.rec.anlog [Basaglar Kwikpen U-100] 10 unit SQ HS 06/01/18 Polyethylene Glycol 3350 [Miralax (For Daily Use) -] 17 gm PO DAILY 06/01/18 Pramipexole Di-HCl [Mirapex] 1 mg PO DAILY 06/01/18 Simvastatin 20 mg PO DAILY 06/01/18 Tramadol HCl 50 mg PO BID 06/01/18 hydrALAZINE HCL [Apresoline -] 50 mg PO TID 06/01/18 Family Disease History - Family Disease History Family History: Denies Review of Systems - Review of Systems Constitutional: reports: Malaise Eyes: reports: No Symptoms HENT: reports: No Symptoms Neck: reports: No Symptoms Cardiovascular: reports: Edema, Shortness of Breath Respiratory: reports: SOB on Exertion Genitourinary: reports: No Symptoms Musculoskeletal: reports: No Symptoms Integumentary: reports: No Symptoms Neurological: reports: No Symptoms Endocrine: reports: No Symptoms Hematology/Lymphatic: reports: No Symptoms Psychiatric: reports: No Symptoms Physical Exam Vital Signs: Vital Signs Temperature 98.6 F 06/02/18 09:19 Pulse Rate 83 06/02/18 09:19 Respiratory Rate 16 06/02/18 09:19 Blood Pressure 161/69 06/02/18 09:19 O2 Sat by Pulse Oximetry (%) 96 06/02/18 04:40 Constitutional: Yes: Calm Eyes: Yes: Conjunctiva Clear HENT: Yes: Atraumatic Cardiovascular: Yes: S1, S2 Respiratory: Yes: CTA Bilaterally Gastrointestinal: Yes: Normal Bowel Sounds, Soft Renal/: Yes: Incontinence Musculoskeletal: Yes: Muscle Weakness Edema: Yes Edema: LLE: 2+, RLE: 2+ Neurological: Yes: Oriented Labs: CBC, BMP 06/02/18 08:05 06/02/18 06:17 Laboratory Tests 05/06/18 05/07/18 05/09/18 12:57 05:45 06:00 Hgb Sodium Potassium Chloride Carbon Dioxide Creatinine 1.3 0.9 1.0 06/01/18 06/01/18 06/02/18 17:41 17:41 06:17 Hgb 9.2 L Sodium 132 L Potassium 4.1 Chloride 97 L Carbon Dioxide 30 Creatinine 1.5 H 1.1 06/02/18 08:05 Hgb 9.1 L Sodium Potassium Chloride Carbon Dioxide Creatinine Imaging - Results Chest X-ray: Report Reviewed X-ray: Report Reviewed Ultrasound: Report Reviewed Problem List - Problems (1) CHF (congestive heart failure) Code(s): I50.9 - HEART FAILURE, UNSPECIFIED Qualifiers: Heart failure type: unspecified Heart failure chronicity: acute Qualified Code(s): I50.9 - Heart failure, unspecified (2) Edema Code(s): R60.9 - EDEMA, UNSPECIFIED Qualifiers: Edema type: unspecified Qualified Code(s): R60.9 - Edema, unspecified (3) SOB (shortness of breath) Code(s): R06.02 - SHORTNESS OF BREATH Assessment/Plan Current Medications Generic Name Dose Route Start Last Admin Trade Name Freq PRN Reason Stop Dose Admin Acetaminophen 650 mg 06/02/18 05:54 Tylenol - PO Q4H PRN PAIN LEVEL 1-5 Aspirin 81 mg 06/02/18 10:00 06/02/18 11:22 Asa - PO 81 mg DAILY JOYCE Administration Atorvastatin Calcium 10 mg 06/02/18 22:00 Lipitor - PO HS JOYCE Bupropion HCl 150 mg 06/02/18 10:00 06/02/18 11:24 Wellbutrin Xl - PO 150 mg DAILY JOYCE Administration Divalproex Sodium 250 mg 06/02/18 10:00 06/02/18 11:22 Depakote - PO 250 mg BID JOYCE Administration Donepezil HCl 10 mg 06/02/18 10:00 06/02/18 11:24 Aricept - PO 10 mg DAILY JOYCE Administration Ferrous Sulfate 325 mg 06/02/18 10:00 06/02/18 11:22 Feosol - PO 325 mg DAILY JOYCE Administration Furosemide 40 mg 06/02/18 10:00 06/02/18 11:22 Lasix - PO 40 mg DAILY JOYCE Administration Heparin Sodium (Porcine) 5,000 unit 06/02/18 06:00 06/02/18 07:10 Heparin - SQ 5,000 unit TID JOYCE Administration Hydralazine HCl 50 mg 06/02/18 06:00 06/02/18 07:11 Apresoline - PO 50 mg TID JOYCE Administration Nifedipine 60 mg 06/02/18 10:00 06/02/18 09:19 Procardia Xl - PO 60 mg DAILY JOYCE Administration Pancrelipase 1 cap 06/02/18 08:00 06/02/18 11:29 Elaine Sweeney 36,000 Units Capsule PO Not Given TIDCM JOYCE Pantoprazole Sodium 40 mg 06/02/18 10:00 06/02/18 11:22 Protonix - PO 40 mg DAILY JOYCE Administration Polyethylene Glycol 17 gm 06/02/18 10:00 06/02/18 11:25 Miralax (For Daily Use) - PO Not Given DAILY JOYCE Pramipexole Dihydrochloride 1 mg 06/02/18 10:00 06/02/18 11:25 Mirapex - PO 1 mg DAILY JOYCE Administration Tramadol HCl 50 mg 06/02/18 10:00 06/02/18 11:22 Ultram - PO 50 mg BID JOYCE Administration Impression 1. hyponatremia 2. fluid overload 3. HLD 4. shortness of breath 5. HTN 6. DM 7. proteinuria Plan - cont with lasix - will given an additional IV dose - repeat labs in am - monitor lytes - monitor volume status closely - pt appears fluid overloaded - check echo - repeat bp after am meds Dr Yu
[2018-06-02] MEDS ORDERED: FUROSEMIDE 40 MG/4 ML INJECTABLE VIAL IVPUSH ONE (12:38)
--- NOTE | 2018-06-02 13:00 | PN ---
Progress Note, Physician Chief Complaint: patient seen and examined came in shortness of breath and fluid overload chest ct shows bilateral pleural effusion doppler no dvt got iv lasix yesterday and today - Current Medication List Current Medications: Active Medications Acetaminophen (Tylenol -) 650 mg PO Q4H PRN PRN Reason: PAIN LEVEL 1-5 Aspirin (Asa -) 81 mg PO DAILY [facility] Last Admin: 06/02/18 11:22 Dose: 81 mg Atorvastatin Calcium (Lipitor -) 10 mg PO [facility] Bupropion HCl (Wellbutrin Xl -) 150 mg PO DAILY [facility] Last Admin: 06/02/18 11:24 Dose: 150 mg Divalproex Sodium (Depakote -) 250 mg PO BID [facility] Last Admin: 06/02/18 11:22 Dose: 250 mg Donepezil HCl (Aricept -) 10 mg PO DAILY [facility] Last Admin: 06/02/18 11:24 Dose: 10 mg Ferrous Sulfate (Feosol -) 325 mg PO DAILY [facility] Last Admin: 06/02/18 11:22 Dose: 325 mg Furosemide (Lasix -) 40 mg PO DAILY [facility] Last Admin: 06/02/18 11:22 Dose: 40 mg Heparin Sodium (Porcine) (Heparin -) 5,000 unit SQ TID [facility] Last Admin: 06/02/18 07:10 Dose: 5,000 unit Hydralazine HCl (Apresoline -) 50 mg PO TID [facility] Last Admin: 06/02/18 07:11 Dose: 50 mg Nifedipine (Procardia Xl -) 60 mg PO DAILY [facility] Last Admin: 06/02/18 09:19 Dose: 60 mg Pancrelipase (Creon Dr 36,000 Units Capsule) 1 cap PO TIDCM [facility] Last Admin: 06/02/18 11:29 Dose: Not Given Pantoprazole Sodium (Protonix -) 40 mg PO DAILY [facility] Last Admin: 06/02/18 11:22 Dose: 40 mg Polyethylene Glycol (Miralax (For Daily Use) -) 17 gm PO DAILY [facility] Last Admin: 06/02/18 11:25 Dose: Not Given Pramipexole Dihydrochloride (Mirapex -) 1 mg PO DAILY [facility] Last Admin: 06/02/18 11:25 Dose: 1 mg Tramadol HCl (Ultram -) 50 mg PO BID [facility] Last Admin: 06/02/18 11:22 Dose: 50 mg - Objective Vital Signs: Vital Signs Temperature 98.6 F 06/02/18 09:19 Pulse Rate 83 06/02/18 09:19 Respiratory Rate 16 06/02/18 09:19 Blood Pressure 161/69 06/02/18 09:19 O2 Sat by Pulse Oximetry (%) 96 06/02/18 04:40 Constitutional: Yes: Calm, Other (feels tired) Cardiovascular: Yes: Regular Rate and Rhythm, S1, S2 Respiratory: Yes: Diminished Gastrointestinal: Yes: Normal Bowel Sounds, Soft Edema: Yes Neurological: Yes: Alert Labs: CBC, BMP 06/02/18 08:05 06/02/18 06:17 INR, PTT INR 1.07 (0.83-1.09) 06/02/18 08:05 Problem List - Problems (1) Edema Assessment/Plan: leg edema no dvt lasix Code(s): R60.9 - EDEMA, UNSPECIFIED Qualifiers: Edema type: unspecified Qualified Code(s): R60.9 - Edema, unspecified (2) SOB (shortness of breath) Assessment/Plan: lasix echo Code(s): R06.02 - SHORTNESS OF BREATH (3) HTN (hypertension) Assessment/Plan: hydralazine and nifedipine Code(s): I10 - ESSENTIAL (PRIMARY) HYPERTENSION (4) Anemia Assessment/Plan: iron panel Code(s): D64.9 - ANEMIA, UNSPECIFIED (5) Hyponatremia Assessment/Plan: will monitor sodium level urine studies ordered Code(s): E87.1 - HYPO-OSMOLALITY AND HYPONATREMIA
--- NOTE | 2018-06-02 13:18 | CON.PULM ---
Consult Consult Specialty:: PULMONARY Referred by:: Dr Espana Reason for Consultation:: pleural effusion - History of Present Illness Chief Complaint: shortness of breath History of Present Illness: 78yo female with h/o HTN, DM, hyperlipidemia, Parkinsons who was admitted with worsening shortness of breath and leg swelling. Pt does not remember how long this has been occurring but per chart over the past 2 weeks. She denies any chest pain or palpitations. She reports an occasional nonproductive cough but denies any wheezing. No history of asthma or COPD, she is a nonsmoker. No fevers , chills or sweats. Found to have bilateral effusions on CT chest. 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: Yes: Dementia, Peripheral Neuropathy, Parkinson's Cardio/Vascular: Yes: HTN, Hyperlipdemia Gastrointestinal: Yes: Diverticulosis ...: No Psych: Yes: Anxiety Musculoskeletal: Yes: Osteoarthritis Endocrine: Yes: Diabetes Mellitus - Past Surgical History Past Surgical History: Yes: Appendectomy, Cholecystectomy, - Alcohol/Substance Use Hx Alcohol Use: No - Smoking History Smoking history: Never smoked Have you smoked in the past 12 months: No Aproximately how many cigarettes per day: 0 - Social History Usual Living Arrangement: With Significant Other 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 History of Recent Travel: No Home Medications - Allergies Allergies/Adverse Reactions: Allergies Allergy/AdvReac Type Severity Reaction Status Date / Time valsartan [From Diovan] Allergy Mild Verified 06/01/18 16:47 - Home Medications Home Medications: Ambulatory Orders Aspirin [ASA -] 81 mg PO DAILY 09/09/15 Donepezil HCl 10 mg PO DAILY 02/01/18 Bupropion HCl [Wellbutrin Xl -] 150 mg PO DAILY #30 tab.sr.24h 02/09/18 Nifedipine ER [Procardia XL -] 60 mg PO DAILY #30 tab.er.24 02/09/18 Pantoprazole Sodium [Protonix -] 40 mg PO DAILY #30 tablet.ec 02/09/18 Lipase/Protease/Amylase [Elaine Sweeney 36,000 Units Capsule] 1 cap PO TIDCM #90 capsule. 04/24/18 Divalproex [Depakote -] 250 mg PO BID #30 tablet.ec MDD 2 05/09/18 Acetaminophen [Tylenol] 650 mg PO Q4H PRN 06/01/18 Cranberry Fruit Extract [Cranberry Extract] 1 gm PO DAILY 06/01/18 Ferrous Sulfate 325 mg PO DAILY 06/01/18 Furosemide [Lasix] 40 mg PO ASDIR 06/01/18 Insulin Aspart [Novolog] 0 unit SQ ASDIR 06/01/18 Insulin Glargine,Hum.rec.anlog [Basaglar Kwikpen U-100] 10 unit SQ HS 06/01/18 Polyethylene Glycol 3350 [Miralax (For Daily Use) -] 17 gm PO DAILY 06/01/18 Pramipexole Di-HCl [Mirapex] 1 mg PO DAILY 06/01/18 Simvastatin 20 mg PO DAILY 06/01/18 Tramadol HCl 50 mg PO BID 06/01/18 hydrALAZINE HCL [Apresoline -] 50 mg PO TID 06/01/18 Review of Systems - Review of Systems Constitutional: reports: Weakness. denies: Chills, Fever Eyes: denies: Recent Change in Vision HENT: denies: Nasal Congestion, Throat Pain Neck: denies: Stiffness, Tenderness Cardiovascular: reports: Edema, Shortness of Breath. denies: Chest Pain, Palpitations Respiratory: reports: Cough. denies: Hemoptysis, Wheezing Gastrointestinal: denies: Abdominal Pain, Nausea, Vomiting Genitourinary: denies: Dysuria, Hematuria Neurological: denies: Dizziness, Headache Endocrine: denies: Unexplained Weight Loss Physical Exam Vital Sings: Vital Signs Temperature 98.6 F 06/02/18 09:19 Pulse Rate 83 06/02/18 09:19 Respiratory Rate 16 06/02/18 09:19 Blood Pressure 161/69 06/02/18 09:19 O2 Sat by Pulse Oximetry (%) 96 06/02/18 04:40 Constitutional: Yes: Calm Eyes: Yes: Conjunctiva Clear, EOM Intact HENT: Yes: Atraumatic, Normocephalic Neck: Yes: Supple, Trachea Midline Cardiovascular: Yes: Regular Rate and Rhythm Respiratory: Yes: Diminished (decreased breath sounds at the bases) ...Clubbing: No Gastrointestinal: Yes: Normal Bowel Sounds, Soft. No: Tenderness Edema: Yes Neurological: Yes: Alert Labs: CBC, BMP 06/02/18 08:05 06/02/18 06:17 Imaging - Results Chest X-ray: Report Reviewed, Image Reviewed Cat Scan: Report Reviewed, Image Reviewed (moderate bilateral effusions with compressive atelectasis) Problem List - Problems (1) Acute on chronic diastolic (congestive) heart failure Code(s): I50.33 - ACUTE ON CHRONIC DIASTOLIC (CONGESTIVE) HEART FAILURE (2) Pleural effusion Code(s): J90 - PLEURAL EFFUSION, NOT ELSEWHERE CLASSIFIED Assessment/Plan Acute on Chronic Diastolic Heart Failure Volume Overload Hyponatremia Pleural Effusions from above HTN DM Hyperlipidemia Parkinsons - IV lasix - monitor urine output, creatinine - daily weights - O2 to keep SpO2 >90% - if not responsive to diuresis, can consider thoracentesis but would await response to lasix - DVT prophylaxis Thank you for this consult Polo Thakkar MD
[2018-06-02 13:28] LABS: N-TERMINAL BNP 2854.9 pg/ml (5-450)
--- NOTE | 2018-06-02 15:51 | ECHO ---
Name: GIA NEWMAN Exam:Adult Echocardiogram Study Date: 06/02/2018 02:03 PM Age: 78 yrs Reason For Study: PLEURAL EFFUSION ANASARCA Height: 62 in Weight: 130 lb BSA: 1.6 m2 MMode/2D Measurements & Calculations IVSd: 0.75 cm Ao root diam: 2.9 cm LVIDd: 4.2 cm LA dimension: 3.7 cm LVIDs: 3.0 cm LVPWd: 0.73 cm EDV(Teich): 80.3 ml LVOT diam: 2.2 cm ESV(Teich): 34.2 ml TAPSE: 3.0 cm Doppler Measurements & Calculations MV E max madi: 110.4 cm/sec Ao V2 max: 172.6 cm/sec MV A max madi: 103.7 cm/sec Ao max P.9 mmHg MV E/A: 1.1 MV dec time: 0.20 sec CALLIE(V,D): 2.6 cm2 LV V1 max P.2 mmHg SV(LVOT): 95.8 ml LV V1 mean P.3 mmHg LV V1 max: 113.8 cm/sec LV V1 mean: 74.7 cm/sec LV V1 VTI: 24.6 cm Med Peak E' Madi: 4.0 cm/sec Med E/e': 27.8 Lat Peak E' Madi: 5.6 cm/sec Lat E/e': 19.7 Procedure A complete two-dimensional transthoracic echocardiogram was performed (2D, M-mode, Doppler and color flow Doppler). Left Ventricle The left ventricular size, thickness and function are normal. The left ventricular ejection fraction is normal. Ejection Fraction = 60-65%. The left ventricular wall motion is normal. Right Ventricle The right ventricle is normal in size and function. Atria Normal left and right atrial size and function. Mitral Valve There is no mitral regurgitation noted. Tricuspid Valve There is trace tricuspid regurgitation. There was insufficient TR detected to calculate RV systolic p ressure. Aortic Valve No hemodynamically significant valvular aortic stenosis. No aortic regurgitation is present. Pulmonic Valve There is no pulmonic valvular regurgitation. Great Vessels The aortic root is normal size. Pericardium/Pleura Trivial pericardial effusion not hemodynamically significant. There is a pleural effusion present. Interpretation Summary The left ventricular size, thickness and function are normal The right ventricle is normal in size and function. There is trace tricuspid regurgitation. Trivial pericardial effusion not hemodynamically significant There is a pleural effusion present. MD Dionicio Lopez 06/02/2018 03:50 PM
--- NOTE | 2018-06-02 16:37 | CON.CARD ---
Consult Consult Specialty:: Cardiology Referred by:: Dr. Espana Reason for Consultation:: Shortness of breath and leg edema - History of Present Illness Chief Complaint: Shortness of breath and leg edema History of Present Illness: 78 year old woman with a PMHx of HTN, DM, HLD, GI bleeding, diverticulosis, anemia, dementia, Parkinson's disease and pneumonia in April 2018 admitted for worsening SOB and leg edema. The patient has had worsening lower extremity edema for the past 2 weeks to the point that she cant walk. Left arm swelling for several days was noted. She also has GIVENS with decreased exercise tolerance and orthopnea. She denies chest pain, palpitation, dizziness, fever, chills, nausea, vomiting or dysuria. Repeat echocardiogram 06/02/2018 showed normal LV size, wall motion and systolic function. LVEF = 60-65%. Normal RV. Normal LA and RA in size. No significant valvular abnormalities. Minimal pericardial effusion. Seen by renal for hyponatremia and pulmonary for pleural effusion. BNP is elevated. Severe anemia and hypoalbuminemia noted. 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: Dementia, Peripheral Neuropathy, Parkinson's Cardio/Vascular: Yes: HTN, Hyperlipdemia Gastrointestinal: Yes: Diverticulosis ...: No Psych: Yes: Anxiety Musculoskeletal: Yes: Osteoarthritis Endocrine: Yes: Diabetes Mellitus - Past Surgical History Past Surgical History: Yes: Appendectomy, Cholecystectomy, - Alcohol/Substance Use Hx Alcohol Use: No - Smoking History Smoking history: Never smoked Have you smoked in the past 12 months: No Aproximately how many cigarettes per day: 0 - Social History Usual Living Arrangement: With Significant Other 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 History of Recent Travel: No Home Medications - Allergies Allergies/Adverse Reactions: Allergies Allergy/AdvReac Type Severity Reaction Status Date / Time valsartan [From Diovan] Allergy Mild Verified 06/01/18 16:47 - Home Medications Home Medications: Ambulatory Orders Aspirin [ASA -] 81 mg PO DAILY 09/09/15 Donepezil HCl 10 mg PO DAILY 02/01/18 Bupropion HCl [Wellbutrin Xl -] 150 mg PO DAILY #30 tab.sr.24h 02/09/18 Nifedipine ER [Procardia XL -] 60 mg PO DAILY #30 tab.er.24 02/09/18 Pantoprazole Sodium [Protonix -] 40 mg PO DAILY #30 tablet.ec 02/09/18 Lipase/Protease/Amylase [Credyana Sweeney 36,000 Units Capsule] 1 cap PO TIDCM #90 capsule. 04/24/18 Divalproex [Depakote -] 250 mg PO BID #30 tablet.ec MDD 2 05/09/18 Acetaminophen [Tylenol] 650 mg PO Q4H PRN 06/01/18 Cranberry Fruit Extract [Cranberry Extract] 1 gm PO DAILY 06/01/18 Ferrous Sulfate 325 mg PO DAILY 06/01/18 Furosemide [Lasix] 40 mg PO ASDIR 06/01/18 Insulin Aspart [Novolog] 0 unit SQ ASDIR 06/01/18 Insulin Glargine,Hum.rec.anlog [Basaglar Kwikpen U-100] 10 unit SQ HS 06/01/18 Polyethylene Glycol 3350 [Miralax (For Daily Use) -] 17 gm PO DAILY 06/01/18 Pramipexole Di-HCl [Mirapex] 1 mg PO DAILY 06/01/18 Simvastatin 20 mg PO DAILY 06/01/18 Tramadol HCl 50 mg PO BID 06/01/18 hydrALAZINE HCL [Apresoline -] 50 mg PO TID 06/01/18 Review of Systems - Review of Systems Constitutional: reports: Weakness Eyes: reports: No Symptoms HENT: reports: No Symptoms Neck: reports: No Symptoms Cardiovascular: reports: Shortness of Breath Respiratory: reports: SOB, SOB on Exertion Gastrointestinal: reports: No Symptoms Genitourinary: reports: No Symptoms Breasts: reports: No Symptoms Reported Musculoskeletal: reports: No Symptoms Integumentary: reports: No Symptoms Neurological: reports: No Symptoms Hematology/Lymphatic: reports: No Symptoms Psychiatric: reports: No Symptoms Vital Signs: Vital Signs Temperature 98.7 F 06/02/18 14:00 Pulse Rate 79 06/02/18 14:00 Respiratory Rate 18 06/02/18 14:00 Blood Pressure 141/58 L 06/02/18 14:00 O2 Sat by Pulse Oximetry (%) 98 06/02/18 10:42 General: Well developed. Chronic ill. No acute distress. Head: Normocephalic. Atraumatic, Eyes: PERRLA, EOMI. Sclerae anicteric. Conjunctivae clear. Neck: Supple. No JVD. No bruits. Heart: Normal S1, S2: Regular rhythm and rate. No murmur. No gallop or rub. Lungs: Symmetrical air entry. Decrease BS at bases. No crackles. No wheezing or rhonchi. Abdomen: Soft. Bowel sound positive. Non tender. No masses. Extremities: 1-2+ edema. No clubbing or cyanosis. PD 2+, equal bilaterally. - Other Data Labs, Other Data: CBC, BMP 06/02/18 08:05 06/02/18 06:17 INR, PTT INR 1.07 (0.83-1.09) 06/02/18 08:05 Troponin, BNP 06/01/18 06/02/18 17:41 06:17 Troponin I < 0.02 B-Natriuretic Peptide 3962.8 H 2854.9 H Troponin, BNP 06/01/18 06/02/18 17:41 06:17 Troponin I < 0.02 B-Natriuretic Peptide 3962.8 H 2854.9 H Assessment/Plan 78 year old woman with a PMHx of HTN, DM, HLD, GI bleeding, diverticulosis, anemia, dementia, Parkinson's disease and pneumonia in April 2018 admitted for worsening SOB and leg edema. Repeat echocardiogram 06/02/2018 showed normal LV size, wall motion and systolic function. LVEF = 60-65%. Normal RV. Normal LA and RA in size. No significant valvular abnormalities. Minimal pericardial effusion. Seen by renal for hyponatremia and pulmonary for pleural effusion. BNP is elevated. Severe anemia and hypoalbuminemia noted. Dyspnea and edema: likely multifactorial: Chronic diastolic CHF, low oncotic pressure (severe hypoalbuminemia) and pleural effusion. Agree with diuretic and fluid restriction therapy. 1) May increase PO Lasix to 40 mg BID and taper it to once daily in 2-3 days. 2) Decrease nifedipine to 30 mg daily (may reduce leg edema) and add metoprolol for BP and heart rate control. 3) Nutritional support. Please call us for reconsult as needed.
[2018-06-02] MEDS ORDERED: INSULIN SLIDING SCALE (NOVOLOG) 1 VIAL SQ ONE (19:36)
[2018-06-02] MEDS: ATORVASTATIN CA 10 MG TABLET (FP) PO SCH (21:48)
[2018-06-03] MEDS: HEPARIN NA (PORCINE) 5,000 UNITS/ML 1ML VIAL SQ SCH ×3 (06:09→21:39)
[2018-06-03] MEDS: hydrALAZINE HCL 50 MG TABLET (FP) PO SCH ×3 (06:10→21:41)
[2018-06-03 06:59] LABS: ALBUMIN 2.5 g/dl (3.4-5.0); ALK PHOS 112 U/L (45-117); ANION GAP 3 MMOL/L (8-16); BILIRUBIN,TOTAL 0.2 mg/dL (0.2-1); BLOOD UREA NITROGEN 11 mg/dL (7-18); CALCIUM 7.9 mg/dL (8.5-10.1); CHLORIDE 99 mmol/L (98-107); CO2 32 mmol/L (21-32); CREATININE 1.1 mg/dL (0.55-1.3); GLUCOSE,RANDOM 101 mg/dL (74-106); POTASSIUM 3.8 mmol/L (3.5-5.1); SGOT/AST 16 U/L (15-37); SGPT/ALT 11 U/L (13-61); SODIUM 134 mmol/L (136-145); TOT PROT 6.2 g/dl (6.4-8.2)
[2018-06-03] MEDS: LIPASE/PROTEASE/AMYLASE 36,000 UNIT CAPSULE PO SCH ×3 (08:57→17:24)
[2018-06-03] MEDS: PRAMIPEXOLE DIHYDROCHLORIDE 1 MG TABLET PO SCH (10:06)
[2018-06-03] MEDS: DONEPEZIL HCL 10 MG TABLET (FP) PO SCH (10:07)
[2018-06-03] MEDS: ASPIRIN 81 MG CHEWABLE TABLETS PO SCH (10:07)
[2018-06-03] MEDS: FERROUS SO4 325 MG TABLET (FP) PO SCH (10:07)
[2018-06-03] MEDS: DIVALPROEX SODIUM 250 MG TABLET E.C. PO SCH ×2 (10:08→21:39)
[2018-06-03] MEDS ORDERED: NIFEdipine E.R. 30 MG TABLET (FP) PO SCH (10:09)
[2018-06-03] MEDS: PANTOPRAZOLE 40 MG TABLET (FP) PO SCH (10:09)
[2018-06-03] MEDS: traMADol HCL 50 MG TABLET PO SCH ×2 (10:14→21:39)
[2018-06-03] MEDS: POLYETHYLENE GLYCOL 3350 119 GM BTL PO SCH (10:14)
[2018-06-03] MEDS: FUROSEMIDE 40 MG TABLET (FP) PO SCH (10:19)
[2018-06-03] MEDS: NIFEdipine E.R 60 MG TABLET (UD) PO SCH (10:19)
[2018-06-03] MEDS: metoPROLOL SUCCINATE 25 MG TAB.SR.24H (FP) PO SCH (10:54)
[2018-06-03] MEDS: FUROSEMIDE 40 MG/4 ML INJECTABLE VIAL IVPUSH SCH (10:54)
[2018-06-03] MEDS ORDERED: NIFEdipine E.R. 30 MG TABLET (FP) PO ONE ×2 (11:00→19:00)
--- NOTE | 2018-06-03 12:47 | PN ---
Progress Note, Physician Chief Complaint: patient awake today but doesnot want to eat bc food has no taste no salt in food - Current Medication List Current Medications: Active Medications Acetaminophen (Tylenol -) 650 mg PO Q4H PRN PRN Reason: PAIN LEVEL 1-5 Aspirin (Asa -) 81 mg PO DAILY [facility] Last Admin: 06/03/18 10:07 Dose: 81 mg Atorvastatin Calcium (Lipitor -) 10 mg PO HS [facility] Last Admin: 06/02/18 21:48 Dose: 10 mg Bupropion HCl (Wellbutrin Xl -) 150 mg PO DAILY [facility] Last Admin: 06/03/18 10:07 Dose: 150 mg Divalproex Sodium (Depakote -) 250 mg PO BID [facility] Last Admin: 06/03/18 10:08 Dose: 250 mg Donepezil HCl (Aricept -) 10 mg PO DAILY [facility] Last Admin: 06/03/18 10:07 Dose: 10 mg Ferrous Sulfate (Feosol -) 325 mg PO DAILY [facility] Last Admin: 06/03/18 10:07 Dose: 325 mg Furosemide (Lasix Injection -) 40 mg IVPUSH DAILY [facility] Last Admin: 06/03/18 10:54 Dose: 40 mg Heparin Sodium (Porcine) (Heparin -) 5,000 unit SQ TID [facility] Last Admin: 06/03/18 06:09 Dose: 5,000 unit Hydralazine HCl (Apresoline -) 50 mg PO TID [facility] Last Admin: 06/03/18 06:10 Dose: 50 mg Metoprolol Succinate (Toprol Xl -) 25 mg PO DAILY [facility] Last Admin: 06/03/18 10:54 Dose: 25 mg Nifedipine (Procardia Xl -) 30 mg PO DAILY [facility] Pancrelipase (Creon Dr 36,000 Units Capsule) 1 cap PO TIDCM [facility] Last Admin: 06/03/18 11:48 Dose: 1 cap Pantoprazole Sodium (Protonix -) 40 mg PO DAILY [facility] Last Admin: 06/03/18 10:09 Dose: 40 mg Polyethylene Glycol (Miralax (For Daily Use) -) 17 gm PO DAILY [facility] Last Admin: 06/03/18 10:14 Dose: 17 grams Pramipexole Dihydrochloride (Mirapex -) 1 mg PO DAILY [facility] Last Admin: 06/03/18 10:06 Dose: 1 mg Tramadol HCl (Ultram -) 50 mg PO BID [facility] Last Admin: 06/03/18 10:14 Dose: Not Given - Objective Vital Signs: Vital Signs Temperature 97.9 F 06/03/18 08:59 Pulse Rate 97 H 06/03/18 08:59 Respiratory Rate 16 06/03/18 08:59 Blood Pressure 164/70 06/03/18 08:59 O2 Sat by Pulse Oximetry (%) 99 06/02/18 23:00 Constitutional: Yes: Calm Cardiovascular: Yes: Regular Rate and Rhythm, S1, S2 Respiratory: Yes: CTA Bilaterally (upper thorne and dimished in lower thorne posterior exam) Gastrointestinal: Yes: Normal Bowel Sounds, Soft Edema: Yes Neurological: Yes: Alert Labs: CBC, BMP 06/02/18 08:05 06/03/18 05:30 INR, PTT INR 1.07 (0.83-1.09) 06/02/18 08:05 Problem List - Problems (1) Edema Assessment/Plan: iv lasix for now then will change to po lasix from tmw Code(s): R60.9 - EDEMA, UNSPECIFIED Qualifiers: Edema type: unspecified Qualified Code(s): R60.9 - Edema, unspecified (2) SOB (shortness of breath) Assessment/Plan: lasix iv for now echo show left ventricle size and thickness is normal and ejection fraction 55- 60% diastolic heart failure Code(s): R06.02 - SHORTNESS OF BREATH (3) HTN (hypertension) Assessment/Plan: hydralazine and nifedipine dose decreased on low dose metoprolol Code(s): I10 - ESSENTIAL (PRIMARY) HYPERTENSION (4) Anemia Assessment/Plan: iron panel pending monitor h/h Code(s): D64.9 - ANEMIA, UNSPECIFIED (5) Hyponatremia Assessment/Plan: will monitor sodium level improving from 132 to 134 urine studies ordered Code(s): E87.1 - HYPO-OSMOLALITY AND HYPONATREMIA
--- NOTE | 2018-06-03 12:53 | PN ---
Progress Note (short form) - Note Progress Note: Breathing feels a little better today. Less SOB. No CP . Intake & Output 05/31/18 06/01/18 06/02/18 06/03/18 23:59 23:59 23:59 23:59 Intake Total 100 Balance 100 Weight 130 lb 136 lb Last Vital Signs Temp Pulse Resp BP Pulse Ox 97.9 F 97 H 16 164/70 99 06/03/18 08:59 06/03/18 08:59 06/03/18 08:59 06/03/18 08:59 06/02/18 23:00 Active Medications Acetaminophen (Tylenol -) 650 mg PO Q4H PRN PRN Reason: PAIN LEVEL 1-5 Aspirin (Asa -) 81 mg PO DAILY [facility] Last Admin: 06/03/18 10:07 Dose: 81 mg Atorvastatin Calcium (Lipitor -) 10 mg PO HS [facility] Last Admin: 06/02/18 21:48 Dose: 10 mg Bupropion HCl (Wellbutrin Xl -) 150 mg PO DAILY [facility] Last Admin: 06/03/18 10:07 Dose: 150 mg Divalproex Sodium (Depakote -) 250 mg PO BID [facility] Last Admin: 06/03/18 10:08 Dose: 250 mg Donepezil HCl (Aricept -) 10 mg PO DAILY [facility] Last Admin: 06/03/18 10:07 Dose: 10 mg Ferrous Sulfate (Feosol -) 325 mg PO DAILY [facility] Last Admin: 06/03/18 10:07 Dose: 325 mg Furosemide (Lasix Injection -) 40 mg IVPUSH DAILY [facility] Last Admin: 06/03/18 10:54 Dose: 40 mg Heparin Sodium (Porcine) (Heparin -) 5,000 unit SQ TID [facility] Last Admin: 06/03/18 06:09 Dose: 5,000 unit Hydralazine HCl (Apresoline -) 50 mg PO TID [facility] Last Admin: 06/03/18 06:10 Dose: 50 mg Metoprolol Succinate (Toprol Xl -) 25 mg PO DAILY [facility] Last Admin: 06/03/18 10:54 Dose: 25 mg Nifedipine (Procardia Xl -) 30 mg PO DAILY [facility] Pancrelipase (Creon Dr 36,000 Units Capsule) 1 cap PO TIDCM [facility] Last Admin: 06/03/18 11:48 Dose: 1 cap Pantoprazole Sodium (Protonix -) 40 mg PO DAILY [facility] Last Admin: 06/03/18 10:09 Dose: 40 mg Polyethylene Glycol (Miralax (For Daily Use) -) 17 gm PO DAILY [facility] Last Admin: 06/03/18 10:14 Dose: 17 grams Pramipexole Dihydrochloride (Mirapex -) 1 mg PO DAILY [facility] Last Admin: 06/03/18 10:06 Dose: 1 mg Tramadol HCl (Ultram -) 50 mg PO BID [facility] Last Admin: 06/03/18 10:14 Dose: Not Given Constitutional: Yes: NAD Eyes: Yes: Conjunctiva Clear, EOM Intact HENT: Yes: Atraumatic, Normocephalic Neck: Yes: Supple, Trachea Midline Cardiovascular: Yes: Regular Rate and Rhythm Respiratory: Yes: basilar rales/rhonchi ...Clubbing: No Gastrointestinal: Yes: Normal Bowel Sounds, Soft. No: Tenderness Edema: Yes Neurological: Yes: Alert Labs: Laboratory Results - last 24 hr 06/02/18 06/02/18 06/02/18 06:17 08:05 08:05 WBC 5.1 RBC 3.31 L Hgb 9.1 L Hct 26.5 L MCV 79.9 L MCH 27.4 MCHC 34.2 RDW 16.4 H Plt Count 462 H MPV 6.4 L Absolute Neuts (auto) 3.3 Neutrophils % 64.3 Lymphocytes % 16.2 Monocytes % 12.8 H Eosinophils % 5.6 H Basophils % 1.1 Nucleated RBC % 0 PT with INR 12.60 INR 1.07 Sodium 132 L Potassium 4.1 Chloride 97 L Carbon Dioxide 30 Anion Gap 5 L BUN 13 Creatinine 1.1 Creat Clearance w eGFR 48.29 POC Glucometer Random Glucose 108 H Calcium 8.6 Phosphorus 4.0 Magnesium 2.1 Ferritin Total Bilirubin 0.3 AST 22 ALT 13 Alkaline Phosphatase 114 B-Natriuretic Peptide 2854.9 H Total Protein 6.2 L Albumin 2.6 L Serum Folate Urine Creatinine 06/02/18 06/02/18 06/03/18 17:13 21:45 05:30 WBC RBC Hgb Hct MCV MCH MCHC RDW Plt Count MPV Absolute Neuts (auto) Neutrophils % Lymphocytes % Monocytes % Eosinophils % Basophils % Nucleated RBC % PT with INR INR Sodium 134 L Potassium 3.8 Chloride 99 Carbon Dioxide 32 Anion Gap 3 L BUN 11 Creatinine 1.1 Creat Clearance w eGFR 48.29 POC Glucometer 138 122 Random Glucose 101 Calcium 7.9 L Phosphorus Magnesium Ferritin 37.7 Total Bilirubin 0.2 AST 16 ALT 11 L Alkaline Phosphatase 112 B-Natriuretic Peptide Total Protein 6.2 L Albumin 2.5 L Serum Folate 17 Urine Creatinine 06/03/18 06/03/18 06:08 09:15 WBC RBC Hgb Hct MCV MCH MCHC RDW Plt Count MPV Absolute Neuts (auto) Neutrophils % Lymphocytes % Monocytes % Eosinophils % Basophils % Nucleated RBC % PT with INR INR Sodium Potassium Chloride Carbon Dioxide Anion Gap BUN Creatinine Creat Clearance w eGFR POC Glucometer 107 Random Glucose Calcium Phosphorus Magnesium Ferritin Total Bilirubin AST ALT Alkaline Phosphatase B-Natriuretic Peptide Total Protein Albumin Serum Folate Urine Creatinine 52.0 Problem List - Problems (1) Acute on chronic diastolic (congestive) heart failure Code(s): I50.33 - ACUTE ON CHRONIC DIASTOLIC (CONGESTIVE) HEART FAILURE (2) Pleural effusion Code(s): J90 - PLEURAL EFFUSION, NOT ELSEWHERE CLASSIFIED Assessment/Plan Acute on Chronic Diastolic Heart Failure Volume Overload Hyponatremia Pleural Effusions from above HTN DM Hyperlipidemia Parkinsons - IV lasix - monitor urine output, creatinine - daily weights - O2 to keep SpO2 >90% - if not responsive to diuresis, then can consider thoracentesis but would await response to lasix - DVT prophylaxis Dr Zee
[2018-06-03] MEDS ORDERED: FUROSEMIDE 40 MG TABLET (FP) PO SCH (14:00)
--- NOTE | 2018-06-03 20:16 | PN ---
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 Current Medications Acetaminophen (Tylenol -) 650 mg PO Q4H PRN PRN Reason: PAIN LEVEL 1-5 Last Admin: 06/03/18 14:27 Dose: 650 mg Aspirin (Asa -) 81 mg PO DAILY [facility] Last Admin: 06/03/18 10:07 Dose: 81 mg Atorvastatin Calcium (Lipitor -) 10 mg PO HS [facility] Last Admin: 06/02/18 21:48 Dose: 10 mg Bupropion HCl (Wellbutrin Xl -) 150 mg PO DAILY [facility] Last Admin: 06/03/18 10:07 Dose: 150 mg Divalproex Sodium (Depakote -) 250 mg PO BID [facility] Last Admin: 06/03/18 10:08 Dose: 250 mg Donepezil HCl (Aricept -) 10 mg PO DAILY [facility] Last Admin: 06/03/18 10:07 Dose: 10 mg Ferrous Sulfate (Feosol -) 325 mg PO DAILY [facility] Last Admin: 06/03/18 10:07 Dose: 325 mg Furosemide (Lasix Injection -) 40 mg IVPUSH DAILY [facility] Last Admin: 06/03/18 10:54 Dose: 40 mg Heparin Sodium (Porcine) (Heparin -) 5,000 unit SQ TID [facility] Last Admin: 06/03/18 14:08 Dose: 5,000 unit Hydralazine HCl (Apresoline -) 50 mg PO TID [facility] Last Admin: 06/03/18 14:18 Dose: 50 mg Metoprolol Succinate (Toprol Xl -) 25 mg PO DAILY [facility] Last Admin: 06/03/18 10:54 Dose: 25 mg Nifedipine (Procardia Xl -) 60 mg PO DAILY [facility] Pancrelipase (Elaine Sweeney 36,000 Units Capsule) 1 cap PO TIDCM [facility] Last Admin: 06/03/18 17:24 Dose: 1 cap Pantoprazole Sodium (Protonix -) 40 mg PO DAILY [facility] Last Admin: 06/03/18 10:09 Dose: 40 mg Polyethylene Glycol (Miralax (For Daily Use) -) 17 gm PO DAILY [facility] Last Admin: 06/03/18 10:14 Dose: 17 grams Pramipexole Dihydrochloride (Mirapex -) 1 mg PO DAILY [facility] Last Admin: 06/03/18 10:06 Dose: 1 mg Tramadol HCl (Ultram -) 50 mg PO BID [facility] Last Admin: 06/03/18 10:14 Dose: Not Given Last Vital Signs Temp Pulse Resp BP Pulse Ox 98.0 F 64 20 162/72 99 06/03/18 18:00 06/03/18 18:00 06/03/18 18:00 06/03/18 18:00 06/02/18 23:00 lungs fine rales CBC, BMP 06/02/18 08:05 06/03/18 05:30 IMP- clinically better hyponatremia
[2018-06-03] MEDS: ATORVASTATIN CA 10 MG TABLET (FP) PO SCH (21:39)
[2018-06-04] MEDS: hydrALAZINE HCL 50 MG TABLET (FP) PO SCH ×3 (05:54→22:22)
[2018-06-04] MEDS: HEPARIN NA (PORCINE) 5,000 UNITS/ML 1ML VIAL SQ SCH ×3 (05:54→22:23)
[2018-06-04 07:31] LABS: ALBUMIN 2.6 g/dl (3.4-5.0); ALK PHOS 108 U/L (45-117); ANION GAP 8 MMOL/L (8-16); BILIRUBIN,TOTAL 0.3 mg/dL (0.2-1); BLOOD UREA NITROGEN 12 mg/dL (7-18); CALCIUM 8.6 mg/dL (8.5-10.1); CHLORIDE 97 mmol/L (98-107); CO2 29 mmol/L (21-32); CREATININE 0.9 mg/dL (0.55-1.3); GLUCOSE,RANDOM 127 mg/dL (74-106); POTASSIUM 4.3 mmol/L (3.5-5.1); SGOT/AST 41 U/L (15-37); SGPT/ALT 13 U/L (13-61); SODIUM 133 mmol/L (136-145); TOT PROT 6.4 g/dl (6.4-8.2)
[2018-06-04] MEDS ORDERED: PT OWN MED DRAWER 7, Y5N ONE ×3 (07:34→17:40)
[2018-06-04 08:07] LABS: SERUM IRON SATURATION 8 % (15-55); TOTAL IRON BINDING CAPACITY 311 ug/dL (250-450); UIBC 287 ug/dL (118-369)
[2018-06-04] MEDS: LIPASE/PROTEASE/AMYLASE 36,000 UNIT CAPSULE PO SCH ×3 (08:16→17:34)
[2018-06-04 09:04] LABS: BASO % 0.6 % (0-2.0); EOS % 6.9 % (0-4.5); HEMOGLOBIN 9.3 GM/dL (10.7-15.3); LYMPH % 22.3 % (8-40); MCH 27.2 pg (25.7-33.7); MCHC 34.4 g/dl (32.0-36.0); MEAN CELL VOLUME 79.2 fl (80-96); MEAN PLT VOLUME 6.7 fl (7.5-11.1); MONO % 18.1 % (3.8-10.2); NEUT % 52.1 % (42.8-82.8); PLATELET COUNT 457 K/MM3 (134-434); RBC 3.41 M/mm3 (3.60-5.2); RDW 16.3 % (11.6-15.6); WHITE BLOOD COUNT 4.9 K/mm3 (4.0-10.0)
[2018-06-04] MEDS: ASPIRIN 81 MG CHEWABLE TABLETS PO SCH (09:24)
[2018-06-04] MEDS: FUROSEMIDE 40 MG/4 ML INJECTABLE VIAL IVPUSH SCH (09:25)
[2018-06-04] MEDS: metoPROLOL SUCCINATE 25 MG TAB.SR.24H (FP) PO SCH (09:25)
[2018-06-04] MEDS: FERROUS SO4 325 MG TABLET (FP) PO SCH (09:25)
[2018-06-04] MEDS: DIVALPROEX SODIUM 250 MG TABLET E.C. PO SCH ×2 (09:25→22:22)
[2018-06-04] MEDS: DONEPEZIL HCL 10 MG TABLET (FP) PO SCH (09:26)
[2018-06-04] MEDS: NIFEdipine E.R 60 MG TABLET (UD) PO SCH (09:27)
[2018-06-04] MEDS: PRAMIPEXOLE DIHYDROCHLORIDE 1 MG TABLET PO SCH (09:32)
[2018-06-04] MEDS: POLYETHYLENE GLYCOL 3350 119 GM BTL PO SCH ×2 (09:32→09:41)
[2018-06-04] MEDS: PANTOPRAZOLE 40 MG TABLET (FP) PO SCH (09:32)
[2018-06-04] MEDS: traMADol HCL 50 MG TABLET PO SCH ×2 (09:32→22:24)
--- NOTE | 2018-06-04 14:00 | PN ---
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 Current Medications Acetaminophen (Tylenol -) 650 mg PO Q4H PRN PRN Reason: PAIN LEVEL 1-5 Last Admin: 06/03/18 14:27 Dose: 650 mg Aspirin (Asa -) 81 mg PO DAILY [facility] Last Admin: 06/04/18 09:24 Dose: 81 mg Atorvastatin Calcium (Lipitor -) 10 mg PO HS [facility] Last Admin: 06/03/18 21:39 Dose: 10 mg Bupropion HCl (Wellbutrin Xl -) 150 mg PO DAILY [facility] Last Admin: 06/04/18 09:25 Dose: 150 mg Divalproex Sodium (Depakote -) 250 mg PO BID [facility] Last Admin: 06/04/18 09:25 Dose: 250 mg Donepezil HCl (Aricept -) 10 mg PO DAILY [facility] Last Admin: 06/04/18 09:26 Dose: 10 mg Ferrous Sulfate (Feosol -) 325 mg PO DAILY [facility] Last Admin: 06/04/18 09:25 Dose: 325 mg Furosemide (Lasix Injection -) 40 mg IVPUSH DAILY [facility] Last Admin: 06/04/18 09:25 Dose: 40 mg Heparin Sodium (Porcine) (Heparin -) 5,000 unit SQ TID [facility] Last Admin: 06/04/18 13:35 Dose: 5,000 unit Hydralazine HCl (Apresoline -) 50 mg PO TID [facility] Last Admin: 06/04/18 13:35 Dose: 50 mg Metoprolol Succinate (Toprol Xl -) 25 mg PO DAILY [facility] Last Admin: 06/04/18 09:25 Dose: 25 mg Nifedipine (Procardia Xl -) 60 mg PO DAILY [facility] Last Admin: 06/04/18 09:27 Dose: 60 mg Pancrelipase (Elaine Sweeney 36,000 Units Capsule) 1 cap PO TIDCM [facility] Last Admin: 06/04/18 12:06 Dose: 1 cap Pantoprazole Sodium (Protonix -) 40 mg PO DAILY [facility] Last Admin: 06/04/18 09:32 Dose: 40 mg Polyethylene Glycol (Miralax (For Daily Use) -) 17 gm PO DAILY [facility] Last Admin: 06/04/18 09:41 Dose: Not Given Pramipexole Dihydrochloride (Mirapex -) 1 mg PO DAILY [facility] Last Admin: 06/04/18 09:32 Dose: 1 mg Tramadol HCl (Ultram -) 50 mg PO BID [facility] Last Admin: 06/04/18 09:32 Dose: Not Given Last Vital Signs Temp Pulse Resp BP Pulse Ox 98.4 F 71 18 144/72 99 06/04/18 07:59 06/04/18 07:59 06/04/18 07:59 06/04/18 07:59 06/04/18 11:00 alert in nad lungs fine rales heart reg abd soft nontender ext no edema CBC, BMP 06/04/18 08:50 06/04/18 05:50 CBC, BMP 06/02/18 08:05 06/03/18 05:30 IMP- hyponatremia- stable CHF- well compensated Plan- same rx
--- NOTE | 2018-06-04 14:38 | PN ---
Progress Note (short form) - Note Progress Note: PULMONARY States breathing is improving. No chest pain. Vital Signs Period Temp Pulse Resp BP Sys/East Pulse Ox Last 24 Hr 97.3 F-98.4 F 64-71 16-20 120-179/46-82 99-99 Intake & Output 06/01/18 06/02/18 06/03/18 06/04/18 23:59 23:59 23:59 23:59 Intake Total 220 770 Balance 220 770 Weight 58.967 kg 61.689 kg 61.689 kg Gen: NAD in chair Heart: RRR Lung: decreased breath sounds at the bases Abd: soft, nontender Ext: + edema CBC, BMP 06/04/18 08:50 06/04/18 05:50 Active Medications Acetaminophen (Tylenol -) 650 mg PO Q4H PRN PRN Reason: PAIN LEVEL 1-5 Last Admin: 06/03/18 14:27 Dose: 650 mg Aspirin (Asa -) 81 mg PO DAILY [facility] Last Admin: 06/04/18 09:24 Dose: 81 mg Atorvastatin Calcium (Lipitor -) 10 mg PO HS [facility] Last Admin: 06/03/18 21:39 Dose: 10 mg Bupropion HCl (Wellbutrin Xl -) 150 mg PO DAILY [facility] Last Admin: 06/04/18 09:25 Dose: 150 mg Divalproex Sodium (Depakote -) 250 mg PO BID [facility] Last Admin: 06/04/18 09:25 Dose: 250 mg Donepezil HCl (Aricept -) 10 mg PO DAILY [facility] Last Admin: 06/04/18 09:26 Dose: 10 mg Ferrous Sulfate (Feosol -) 325 mg PO DAILY [facility] Last Admin: 06/04/18 09:25 Dose: 325 mg Furosemide (Lasix Injection -) 40 mg IVPUSH DAILY [facility] Last Admin: 06/04/18 09:25 Dose: 40 mg Heparin Sodium (Porcine) (Heparin -) 5,000 unit SQ TID [facility] Last Admin: 06/04/18 13:35 Dose: 5,000 unit Hydralazine HCl (Apresoline -) 50 mg PO TID [facility] Last Admin: 06/04/18 13:35 Dose: 50 mg Metoprolol Succinate (Toprol Xl -) 25 mg PO DAILY [facility] Last Admin: 06/04/18 09:25 Dose: 25 mg Nifedipine (Procardia Xl -) 60 mg PO DAILY [facility] Last Admin: 06/04/18 09:27 Dose: 60 mg Pancrelipase (Creon Dr 36,000 Units Capsule) 1 cap PO TIDCM [facility] Last Admin: 06/04/18 12:06 Dose: 1 cap Pantoprazole Sodium (Protonix -) 40 mg PO DAILY [facility] Last Admin: 06/04/18 09:32 Dose: 40 mg Polyethylene Glycol (Miralax (For Daily Use) -) 17 gm PO DAILY [facility] Last Admin: 06/04/18 09:41 Dose: Not Given Pramipexole Dihydrochloride (Mirapex -) 1 mg PO DAILY [facility] Last Admin: 06/04/18 09:32 Dose: 1 mg Tramadol HCl (Ultram -) 50 mg PO BID [facility] Last Admin: 06/04/18 09:32 Dose: Not Given A/P Acute on Chronic Diastolic Heart Failure Volume Overload Hyponatremia Pleural Effusions from above HTN DM Hyperlipidemia Parkinsons - continue lasix - monitor urine output, creatinine - daily weights - O2 to keep SpO2 >90% - if not responsive to diuresis, can consider thoracentesis but would await response to lasix - DVT prophylaxis Problem List - Problems (1) Acute on chronic diastolic (congestive) heart failure Code(s): I50.33 - ACUTE ON CHRONIC DIASTOLIC (CONGESTIVE) HEART FAILURE (2) Pleural effusion Code(s): J90 - PLEURAL EFFUSION, NOT ELSEWHERE CLASSIFIED
--- NOTE | 2018-06-04 15:32 | PN ---
Progress Note, Physician Chief Complaint: Reconsult for hypertension. Ms. Cole' BP has been elevated after decreasing Nifedipine. She offers no new complaints. Tele shows sinus rhythm with frequent APCs and occasional sinus bradycardia. History of Present Illness: 78 year old woman with a PMHx of HTN, DM, HLD, GI bleeding, diverticulosis, anemia, dementia, Parkinson's disease and pneumonia in April 2018 admitted for worsening SOB and leg edema. Repeat echocardiogram 06/02/2018 showed normal LV size, wall motion and systolic function. LVEF = 60-65%. Normal RV. Normal LA and RA in size. No significant valvular abnormalities. Minimal pericardial effusion. Seen by renal for hyponatremia and pulmonary for pleural effusion. BNP is elevated. Severe anemia and hypoalbuminemia noted. Her BP was elevated after decreasing nifedipine. - Current Medication List Current Medications: Active Medications Acetaminophen (Tylenol -) 650 mg PO Q4H PRN PRN Reason: PAIN LEVEL 1-5 Last Admin: 06/03/18 14:27 Dose: 650 mg Aspirin (Asa -) 81 mg PO DAILY [facility] Last Admin: 06/04/18 09:24 Dose: 81 mg Atorvastatin Calcium (Lipitor -) 10 mg PO HS [facility] Last Admin: 06/03/18 21:39 Dose: 10 mg Bupropion HCl (Wellbutrin Xl -) 150 mg PO DAILY [facility] Last Admin: 06/04/18 09:25 Dose: 150 mg Divalproex Sodium (Depakote -) 250 mg PO BID [facility] Last Admin: 06/04/18 09:25 Dose: 250 mg Donepezil HCl (Aricept -) 10 mg PO DAILY [facility] Last Admin: 06/04/18 09:26 Dose: 10 mg Ferrous Sulfate (Feosol -) 325 mg PO DAILY [facility] Last Admin: 06/04/18 09:25 Dose: 325 mg Furosemide (Lasix Injection -) 40 mg IVPUSH DAILY [facility] Last Admin: 06/04/18 09:25 Dose: 40 mg Heparin Sodium (Porcine) (Heparin -) 5,000 unit SQ TID [facility] Last Admin: 06/04/18 13:35 Dose: 5,000 unit Hydralazine HCl (Apresoline -) 50 mg PO TID [facility] Last Admin: 06/04/18 13:35 Dose: 50 mg Metoprolol Succinate (Toprol Xl -) 25 mg PO DAILY [facility] Last Admin: 06/04/18 09:25 Dose: 25 mg Nifedipine (Procardia Xl -) 60 mg PO DAILY [facility] Last Admin: 06/04/18 09:27 Dose: 60 mg Pancrelipase (Creon Dr 36,000 Units Capsule) 1 cap PO TIDCM [facility] Last Admin: 06/04/18 12:06 Dose: 1 cap Pantoprazole Sodium (Protonix -) 40 mg PO DAILY [facility] Last Admin: 06/04/18 09:32 Dose: 40 mg Polyethylene Glycol (Miralax (For Daily Use) -) 17 gm PO DAILY [facility] Last Admin: 06/04/18 09:41 Dose: Not Given Pramipexole Dihydrochloride (Mirapex -) 1 mg PO DAILY [facility] Last Admin: 06/04/18 09:32 Dose: 1 mg Tramadol HCl (Ultram -) 50 mg PO BID [facility] Last Admin: 06/04/18 09:32 Dose: Not Given - Objective Vital Signs: Vital Signs Temperature 98.1 F 06/04/18 14:08 Pulse Rate 67 06/04/18 14:08 Respiratory Rate 18 06/04/18 14:08 Blood Pressure 120/46 L 06/04/18 14:08 O2 Sat by Pulse Oximetry (%) 99 06/04/18 11:00 General: Well developed. Chronic ill. No acute distress. Head: Normocephalic. Atraumatic, Eyes: PERRLA, EOMI. Sclerae anicteric. Conjunctivae clear. Neck: Supple. No JVD. No bruits. Heart: Normal S1, S2: Regular rhythm and rate. No murmur. No gallop or rub. Lungs: Symmetrical air entry. Decrease BS at bases. No crackles. No wheezing or rhonchi. Abdomen: Soft. Bowel sound positive. Non tender. No masses. Extremities: 1+ edema. No clubbing or cyanosis. Labs: CBC, BMP 06/04/18 08:50 06/04/18 05:50 INR, PTT INR 1.07 (0.83-1.09) 06/02/18 08:05 Assessment/Plan 78 year old woman with a PMHx of HTN, DM, HLD, GI bleeding, diverticulosis, anemia, dementia, Parkinson's disease and pneumonia in April 2018 admitted for worsening SOB and leg edema. Repeat echocardiogram 06/02/2018 showed normal LV size, wall motion and systolic function. LVEF = 60-65%. Normal RV. Normal LA and RA in size. No significant valvular abnormalities. Minimal pericardial effusion. Seen by renal for hyponatremia and pulmonary for pleural effusion. BNP is elevated. Severe anemia and hypoalbuminemia noted. Her BP was elevated after decreasing nifedipine. 1) Hypertension. BP was elevated after decreasing nifedipine. Currently low normal. Continue metoprolol 25 mg daily and nifedipine 60 mg daily. May decrease hydralazine if BP is lower. 2) Dyspnea and edema: likely multifactorial: Chronic diastolic CHF, low oncotic pressure (severe hypoalbuminemia) and pleural effusion. Agree with diuretic and fluid restriction therapy. Hyponatremia improving. Continue PO Lasix to 40 mg BID and taper it to once daily in 2-3 days. Nutritional support. Please call us for reconsult as needed.
--- NOTE | 2018-06-04 15:53 | PN ---
Progress Note, Physician Chief Complaint: SOB Pleural effusion Fluid overload CKD History of Present Illness: NAD Edema and breathing improving Feels better but weak Was out of bed this am - Current Medication List Current Medications: Active Medications Acetaminophen (Tylenol -) 650 mg PO Q4H PRN PRN Reason: PAIN LEVEL 1-5 Last Admin: 06/03/18 14:27 Dose: 650 mg Aspirin (Asa -) 81 mg PO DAILY [facility] Last Admin: 06/04/18 09:24 Dose: 81 mg Atorvastatin Calcium (Lipitor -) 10 mg PO HS [facility] Last Admin: 06/03/18 21:39 Dose: 10 mg Bupropion HCl (Wellbutrin Xl -) 150 mg PO DAILY [facility] Last Admin: 06/04/18 09:25 Dose: 150 mg Divalproex Sodium (Depakote -) 250 mg PO BID [facility] Last Admin: 06/04/18 09:25 Dose: 250 mg Donepezil HCl (Aricept -) 10 mg PO DAILY [facility] Last Admin: 06/04/18 09:26 Dose: 10 mg Ferrous Sulfate (Feosol -) 325 mg PO DAILY [facility] Last Admin: 06/04/18 09:25 Dose: 325 mg Furosemide (Lasix Injection -) 40 mg IVPUSH DAILY [facility] Last Admin: 06/04/18 09:25 Dose: 40 mg Heparin Sodium (Porcine) (Heparin -) 5,000 unit SQ TID [facility] Last Admin: 06/04/18 13:35 Dose: 5,000 unit Hydralazine HCl (Apresoline -) 50 mg PO TID [facility] Last Admin: 06/04/18 13:35 Dose: 50 mg Metoprolol Succinate (Toprol Xl -) 25 mg PO DAILY [facility] Last Admin: 06/04/18 09:25 Dose: 25 mg Nifedipine (Procardia Xl -) 60 mg PO DAILY [facility] Last Admin: 06/04/18 09:27 Dose: 60 mg Pancrelipase (Creon Dr 36,000 Units Capsule) 1 cap PO TIDCM [facility] Last Admin: 06/04/18 12:06 Dose: 1 cap Pantoprazole Sodium (Protonix -) 40 mg PO DAILY [facility] Last Admin: 06/04/18 09:32 Dose: 40 mg Polyethylene Glycol (Miralax (For Daily Use) -) 17 gm PO DAILY [facility] Last Admin: 06/04/18 09:41 Dose: Not Given Pramipexole Dihydrochloride (Mirapex -) 1 mg PO DAILY [facility] Last Admin: 06/04/18 09:32 Dose: 1 mg Tramadol HCl (Ultram -) 50 mg PO BID [facility] Last Admin: 06/04/18 09:32 Dose: Not Given - Objective Vital Signs: Vital Signs Temperature 98.1 F 06/04/18 14:08 Pulse Rate 67 06/04/18 14:08 Respiratory Rate 18 06/04/18 14:08 Blood Pressure 120/46 L 06/04/18 14:08 O2 Sat by Pulse Oximetry (%) 99 06/04/18 11:00 Constitutional: Yes: Well Nourished, No Distress, Calm Cardiovascular: Yes: Regular Rate and Rhythm Respiratory: Yes: Regular, Rales (bibasilar) Gastrointestinal: Yes: Normal Bowel Sounds, Soft Musculoskeletal: Yes: Muscle Weakness Extremities: Yes: WNL Edema: Yes Edema: LUE: Trace, LLE: Trace, RLE: Trace Peripheral Pulses WNL: Yes Neurological: Yes: Alert, Oriented Psychiatric: Yes: Alert, Oriented Labs: CBC, BMP 06/04/18 08:50 06/04/18 05:50 INR, PTT INR 1.07 (0.83-1.09) 06/02/18 08:05 Problem List - Problems (1) JASPER (acute kidney injury) Assessment/Plan: -resolved -monitor trend Code(s): N17.9 - ACUTE KIDNEY FAILURE, UNSPECIFIED (2) Acute on chronic diastolic (congestive) heart failure Assessment/Plan: -Seen by Cardiology -On furosemide -Continue Nifedipine+ metoprolol -tele monitoring Code(s): I50.33 - ACUTE ON CHRONIC DIASTOLIC (CONGESTIVE) HEART FAILURE (3) Edema Assessment/Plan: -Seen by Cardiology -On furosemide -Continue Nifedipine+ metoprolol -low sodium diabetic diet -daily weights Code(s): R60.9 - EDEMA, UNSPECIFIED Qualifiers: Edema type: unspecified Qualified Code(s): R60.9 - Edema, unspecified (4) HTN (hypertension) Assessment/Plan: -Seen by Cardiology -On furosemide -Continue Nifedipine+ metoprolol -monitor trend Code(s): I10 - ESSENTIAL (PRIMARY) HYPERTENSION (5) Hyponatremia Assessment/Plan: -stable Code(s): E87.1 - HYPO-OSMOLALITY AND HYPONATREMIA (6) Pleural effusion Assessment/Plan: -repeat CXR in AM Code(s): J90 - PLEURAL EFFUSION, NOT ELSEWHERE CLASSIFIED (7) SOB (shortness of breath) Assessment/Plan: -much improved -Nasal O2 PRN -Pulmonary on board -bronchodilators -Repeat CXR in am Code(s): R06.02 - SHORTNESS OF BREATH (8) Diabetes Assessment/Plan: -BGM AC HS -low sodium diabetic diet -Insulin: Novolog+ levemir Code(s): E11.9 - TYPE 2 DIABETES MELLITUS WITHOUT COMPLICATIONS Qualifiers: Diabetes mellitus type: type 2 Assessment/Plan see problem list Physical therapy
--- NOTE | 2018-06-04 21:45 | HOSP ---
Physical Examination Vital Signs: Vital Signs Temperature 97.6 F 06/04/18 17:49 Pulse Rate 94 H 06/04/18 17:49 Respiratory Rate 18 06/04/18 17:49 Blood Pressure 136/55 L 06/04/18 17:49 O2 Sat by Pulse Oximetry (%) 99 06/04/18 11:00 Labs: CBC, BMP 06/04/18 08:50 06/04/18 05:50 Hospitalist Encounter Assessment: Patient with sinus bradycardia but asymptomatic. Will hold her Toprolol dose for now.
[2018-06-04] MEDS: ATORVASTATIN CA 10 MG TABLET (FP) PO SCH (22:22)
[2018-06-05] MEDS: hydrALAZINE HCL 50 MG TABLET (FP) PO SCH ×3 (06:09→22:51)
[2018-06-05] MEDS: HEPARIN NA (PORCINE) 5,000 UNITS/ML 1ML VIAL SQ SCH ×3 (06:09→22:51)
[2018-06-05] MEDS: LIPASE/PROTEASE/AMYLASE 36,000 UNIT CAPSULE PO SCH ×3 (10:15→18:24)
[2018-06-05] MEDS: FERROUS SO4 325 MG TABLET (FP) PO SCH (10:18)
[2018-06-05] MEDS: ASPIRIN 81 MG CHEWABLE TABLETS PO SCH (10:19)
[2018-06-05] MEDS: PANTOPRAZOLE 40 MG TABLET (FP) PO SCH (10:19)
[2018-06-05] MEDS: traMADol HCL 50 MG TABLET PO SCH ×2 (10:19→22:55)
[2018-06-05] MEDS: DIVALPROEX SODIUM 250 MG TABLET E.C. PO SCH ×2 (10:19→22:51)
[2018-06-05] MEDS: NIFEdipine E.R 60 MG TABLET (UD) PO SCH (10:20)
[2018-06-05] MEDS: FUROSEMIDE 40 MG/4 ML INJECTABLE VIAL IVPUSH SCH (10:20)
[2018-06-05] MEDS: DONEPEZIL HCL 10 MG TABLET (FP) PO SCH (10:20)
[2018-06-05] MEDS: POLYETHYLENE GLYCOL 3350 119 GM BTL PO SCH (10:20)
[2018-06-05] MEDS: PRAMIPEXOLE DIHYDROCHLORIDE 1 MG TABLET PO SCH (10:20)
--- NOTE | 2018-06-05 11:08 | EKG ---
Test Reason : Blood Pressure : / mmHG Vent. Rate : 045 BPM Atrial Rate : 045 BPM P-R Int : 170 ms QRS Dur : 112 ms QT Int : 466 ms P-R-T Axes : 041 -40 012 degrees QTc Int : 403 ms SINUS BRADYCARDIA WITH PREMATURE SUPRAVENTRICULAR COMPLEXES LEFT AXIS DEVIATION NONSPECIFIC T WAVE ABNORMALITY ABNORMAL ECG WHEN COMPARED WITH ECG OF 01-JUN-2018 17:34, PREMATURE SUPRAVENTRICULAR COMPLEXES ARE NOW PRESENT VENT. RATE HAS DECREASED BY 33 BPM NONSPECIFIC T WAVE ABNORMALITY NOW EVIDENT IN INFERIOR LEADS T WAVE INVERSION NOW EVIDENT IN ANTERIOR LEADS T WAVE INVERSION NO LONGER EVIDENT IN LATERAL LEADS Confirmed by MD FRANCINE, KAREN ([id number]) on 06/05/2018 11:08:17 AM Referred By: Confirmed By:KAREN ESCAMILLA MD
--- NOTE | 2018-06-05 12:02 | PN ---
Progress Note (short form) - Note Progress Note: PULMONARY States breathing and leg swelling improving. No chest pain. Vital Signs Period Temp Pulse Resp BP Sys/East Pulse Ox Last 24 Hr 97.6 F-98.1 F 6-94 16-18 120-176/46-75 98 Gen: NAD in chair Heart: RRR Lung: decreased breath sounds at the bases Abd: soft, nontender Ext: + edema CBC, BMP 06/04/18 08:50 06/04/18 05:50 Active Medications Acetaminophen (Tylenol -) 650 mg PO Q4H PRN PRN Reason: PAIN LEVEL 1-5 Last Admin: 06/03/18 14:27 Dose: 650 mg Aspirin (Asa -) 81 mg PO DAILY [facility] Last Admin: 06/05/18 10:19 Dose: 81 mg Atorvastatin Calcium (Lipitor -) 10 mg PO HS [facility] Last Admin: 06/04/18 22:22 Dose: 10 mg Bupropion HCl (Wellbutrin Xl -) 150 mg PO DAILY [facility] Last Admin: 06/05/18 10:18 Dose: 150 mg Divalproex Sodium (Depakote -) 250 mg PO BID [facility] Last Admin: 06/05/18 10:19 Dose: 250 mg Donepezil HCl (Aricept -) 10 mg PO DAILY [facility] Last Admin: 06/05/18 10:20 Dose: 10 mg Ferrous Sulfate (Feosol -) 325 mg PO DAILY [facility] Last Admin: 06/05/18 10:18 Dose: 325 mg Furosemide (Lasix Injection -) 40 mg IVPUSH BIDLASIX [facility] Heparin Sodium (Porcine) (Heparin -) 5,000 unit SQ TID [facility] Last Admin: 06/05/18 06:09 Dose: 5,000 unit Hydralazine HCl (Apresoline -) 50 mg PO TID [facility] Last Admin: 06/05/18 06:09 Dose: 50 mg Nifedipine (Procardia Xl -) 60 mg PO DAILY [facility] Last Admin: 06/05/18 10:20 Dose: 60 mg Pancrelipase (Creon Dr 36,000 Units Capsule) 1 cap PO TIDCM [facility] Last Admin: 06/05/18 10:15 Dose: 1 cap Pantoprazole Sodium (Protonix -) 40 mg PO DAILY [facility] Last Admin: 06/05/18 10:19 Dose: 40 mg Polyethylene Glycol (Miralax (For Daily Use) -) 17 gm PO DAILY [facility] Last Admin: 06/05/18 10:20 Dose: Not Given Pramipexole Dihydrochloride (Mirapex -) 1 mg PO DAILY [facility] Last Admin: 06/05/18 10:20 Dose: 1 mg Tramadol HCl (Ultram -) 50 mg PO BID [facility] Last Admin: 06/05/18 10:19 Dose: 50 mg A/P Acute on Chronic Diastolic Heart Failure Volume Overload Hyponatremia Pleural Effusions from above HTN DM Hyperlipidemia Parkinsons - continue lasix - monitor urine output, creatinine - daily weights - O2 to keep SpO2 >90% - can defer thoracentesis at this time - DVT prophylaxis Problem List - Problems (1) Acute on chronic diastolic (congestive) heart failure Code(s): I50.33 - ACUTE ON CHRONIC DIASTOLIC (CONGESTIVE) HEART FAILURE (2) Pleural effusion Code(s): J90 - PLEURAL EFFUSION, NOT ELSEWHERE CLASSIFIED
--- NOTE | 2018-06-05 12:29 | PN ---
Progress Note, Physician Chief Complaint: SOB Pleural effusion Fluid overload CKD History of Present Illness: NAD Edema and breathing improving Feels better but weak Was out of bed this am - Current Medication List Current Medications: Active Medications Acetaminophen (Tylenol -) 650 mg PO Q4H PRN PRN Reason: PAIN LEVEL 1-5 Last Admin: 06/03/18 14:27 Dose: 650 mg Aspirin (Asa -) [address] [facility] Last Admin: 06/05/18 10:19 Dose: 81 mg Atorvastatin Calcium (Lipitor -) [address] [facility] Last Admin: 06/04/18 22:22 Dose: 10 mg Bupropion HCl (Wellbutrin Xl -) [address] [facility] Last Admin: 06/05/18 10:18 Dose: 150 mg Divalproex Sodium (Depakote -) [address] [facility] Last Admin: 06/05/18 10:19 Dose: 250 mg Donepezil HCl (Aricept -) [address] [facility] Last Admin: 06/05/18 10:20 Dose: 10 mg Ferrous Sulfate (Feosol -) [address] [facility] Last Admin: 06/05/18 10:18 Dose: 325 mg Furosemide (Lasix Injection -) [address] [facility] Heparin Sodium (Porcine) (Heparin -) 5,[address] [facility] Last Admin: 06/05/18 06:09 Dose: 5,000 unit Hydralazine HCl (Apresoline -) [address] [facility] Last Admin: 06/05/18 06:09 Dose: 50 mg Nifedipine (Procardia Xl -) [address] [facility] Last Admin: 06/05/18 10:20 Dose: 60 mg Pancrelipase (Creon Dr 36,000 Units Capsule) [address] [facility] Last Admin: 06/05/18 10:15 Dose: 1 cap Pantoprazole Sodium (Protonix -) [address] [facility] Last Admin: 06/05/18 10:19 Dose: 40 mg Polyethylene Glycol (Miralax (For Daily Use) -) [address] [facility] Last Admin: 06/05/18 10:20 Dose: Not Given Pramipexole Dihydrochloride (Mirapex -) [address] [facility] Last Admin: 06/05/18 10:20 Dose: 1 mg Tramadol HCl (Ultram -) [address] [facility] Last Admin: 03/17/19 10:19 Dose: 50 mg - Objective Vital Signs: Vital Signs Temperature 98.1 F 06/05/18 06:00 Pulse Rate 71 06/05/18 06:00 Respiratory Rate 18 06/05/18 06:00 Blood Pressure 176/69 H 06/05/18 06:00 O2 Sat by Pulse Oximetry (%) 98 06/04/18 21:00 Constitutional: Yes: Well Nourished, No Distress, Calm Cardiovascular: Yes: Regular Rate and Rhythm Respiratory: Yes: Regular Gastrointestinal: Yes: Normal Bowel Sounds, Soft Musculoskeletal: Yes: WNL Extremities: Yes: WNL Edema: Yes Edema: LLE: Trace, RLE: Trace Peripheral Pulses WNL: Yes Neurological: Yes: Alert, Oriented Psychiatric: Yes: Alert, Oriented Labs: CBC, BMP 06/04/18 08:50 06/04/18 05:50 INR, PTT INR 1.07 (0.83-1.09) 06/02/18 08:05 Problem List - Problems (1) JASPER (acute kidney injury) Assessment/Plan: -resolved -monitor trend Code(s): N17.9 - ACUTE KIDNEY FAILURE, UNSPECIFIED (2) Acute on chronic diastolic (congestive) heart failure Assessment/Plan: -Seen by Cardiology -On furosemide -Continue Nifedipine+ metoprolol -tele monitoring Code(s): I50.33 - ACUTE ON CHRONIC DIASTOLIC (CONGESTIVE) HEART FAILURE (3) Edema Assessment/Plan: -Seen by Cardiology -On furosemide -Continue Nifedipine+ metoprolol -low sodium diabetic diet -daily weights Code(s): R60.9 - EDEMA, UNSPECIFIED Qualifiers: Edema type: unspecified Qualified Code(s): R60.9 - Edema, unspecified (4) HTN (hypertension) Assessment/Plan: -Seen by Cardiology -On furosemide -Continue Nifedipine+ metoprolol -monitor trend Code(s): I10 - ESSENTIAL (PRIMARY) HYPERTENSION (5) Hyponatremia Assessment/Plan: -stable Code(s): E87.1 - HYPO-OSMOLALITY AND HYPONATREMIA (6) Pleural effusion Assessment/Plan: -repeat CXR Code(s): J90 - PLEURAL EFFUSION, NOT ELSEWHERE CLASSIFIED (7) SOB (shortness of breath) Assessment/Plan: -much improved -Nasal O2 PRN -Pulmonary on board -bronchodilators -Repeat CXR Code(s): R06.02 - SHORTNESS OF BREATH (8) Diabetes Assessment/Plan: -BGM AC HS -low sodium diabetic diet -Insulin: Novolog+ levemir Code(s): E11.9 - TYPE 2 DIABETES MELLITUS WITHOUT COMPLICATIONS Qualifiers: Diabetes mellitus type: type 2 Assessment/Plan see problem list Physical therapy
[2018-06-05] MEDS ORDERED: PT OWN MED DRAWER 7, Y5N ONE ×3 (12:59→18:29)
[2018-06-05] MEDS: METOCLOPRAMIDE HCL INJECTION 10 MG/2 ML VIAL IVPUSH SCH ×2 (13:11→18:24)
[2018-06-05] MEDS ORDERED: FUROSEMIDE 40 MG/4 ML INJECTABLE VIAL IVPUSH SCH (14:00)
--- NOTE | 2018-06-05 16:15 | PN ---
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 Current Medications Acetaminophen (Tylenol -) 650 mg PO Q4H PRN PRN Reason: PAIN LEVEL 1-5 Last Admin: 06/03/18 14:27 Dose: 650 mg Aspirin (Asa -) 81 mg PO DAILY [facility] Last Admin: 06/05/18 10:19 Dose: 81 mg Atorvastatin Calcium (Lipitor -) 10 mg PO HS [facility] Last Admin: 06/04/18 22:22 Dose: 10 mg Bupropion HCl (Wellbutrin Xl -) 150 mg PO DAILY [facility] Last Admin: 06/05/18 10:18 Dose: 150 mg Divalproex Sodium (Depakote -) 250 mg PO BID [facility] Last Admin: 06/05/18 10:19 Dose: 250 mg Donepezil HCl (Aricept -) 10 mg PO DAILY [facility] Last Admin: 06/05/18 10:20 Dose: 10 mg Ferrous Sulfate (Feosol -) 325 mg PO DAILY [facility] Last Admin: 06/05/18 10:18 Dose: 325 mg Furosemide (Lasix Injection -) 40 mg IVPUSH BIDLASIX [facility] Last Admin: 06/05/18 13:11 Dose: 40 mg Heparin Sodium (Porcine) (Heparin -) 5,000 unit SQ TID [facility] Last Admin: 06/05/18 13:11 Dose: 5,000 unit Hydralazine HCl (Apresoline -) 50 mg PO TID [facility] Last Admin: 06/05/18 13:12 Dose: 50 mg Metoclopramide HCl (Reglan Injection -) 10 mg IVPUSH TIDAC [facility] Last Admin: 06/05/18 13:11 Dose: 10 mg Nifedipine (Procardia Xl -) 60 mg PO DAILY [facility] Last Admin: 06/05/18 10:20 Dose: 60 mg Pancrelipase (Creon 36,000 Units Capsule) 1 cap PO TIDCM [facility] Last Admin: 06/05/18 13:11 Dose: 1 cap Pantoprazole Sodium (Protonix -) 40 mg PO DAILY [facility] Last Admin: 06/05/18 10:19 Dose: 40 mg Polyethylene Glycol (Miralax (For Daily Use) -) 17 gm PO DAILY [facility] Last Admin: 06/05/18 10:20 Dose: Not Given Pramipexole Dihydrochloride (Mirapex -) 1 mg PO DAILY [facility] Last Admin: 06/05/18 10:20 Dose: 1 mg Tramadol HCl (Ultram -) 50 mg PO BID [facility] Last Admin: 06/05/18 10:19 Dose: 50 mg Last Vital Signs Temp Pulse Resp BP Pulse Ox 97.9 F 97 H 16 107/54 L 99 06/05/18 13:50 06/05/18 13:50 06/05/18 13:50 06/05/18 13:50 06/05/18 10:00 alert in nad, sitting in chair lungs fine rales heart reg abd soft nontender ext no edema CBC, BMP 06/04/18 08:50 06/04/18 05:50 CBC, BMP 06/02/18 08:05 06/03/18 05:30 IMP- hyponatremia- stable CHF- well compensated no labs today Plan- cmp tomorrow
[2018-06-05] MEDS: INSULIN SLIDING SCALE (NOVOLOG) 1 VIAL SQ SCH (18:24)
[2018-06-05] MEDS: ATORVASTATIN CA 10 MG TABLET (FP) PO SCH (22:51)
[2018-06-06] MEDS: INSULIN SLIDING SCALE (NOVOLOG) 1 VIAL SQ SCH ×3 (06:05→17:25)
[2018-06-06] MEDS: hydrALAZINE HCL 50 MG TABLET (FP) PO SCH ×3 (06:05→21:56)
[2018-06-06] MEDS: HEPARIN NA (PORCINE) 5,000 UNITS/ML 1ML VIAL SQ SCH ×3 (06:05→21:56)
[2018-06-06] MEDS: METOCLOPRAMIDE HCL INJECTION 10 MG/2 ML VIAL IVPUSH SCH ×3 (06:05→17:25)
[2018-06-06 07:02] LABS: BASO % 0.9 % (0-2.0); EOS % 2.8 % (0-4.5); HEMATOCRIT 27.5 % (32.4-45.2); HEMOGLOBIN 9.6 GM/dL (10.7-15.3); MCH 27.9 pg (25.7-33.7); MCHC 35.1 g/dl (32.0-36.0); MEAN CELL VOLUME 79.7 fl (80-96); MEAN PLT VOLUME 6.8 fl (7.5-11.1); MONO % 17.7 % (3.8-10.2); NEUT % 58.6 % (42.8-82.8); PLATELET COUNT 360 K/MM3 (134-434); RBC 3.45 M/mm3 (3.60-5.2); RDW 16.4 % (11.6-15.6); WHITE BLOOD COUNT 5.1 K/mm3 (4.0-10.0)
[2018-06-06 07:29] LABS: ALBUMIN 2.5 g/dl (3.4-5.0); ALK PHOS 107 U/L (45-117); ANION GAP 6 MMOL/L (8-16); BILIRUBIN,TOTAL 0.2 mg/dL (0.2-1); BLOOD UREA NITROGEN 13 mg/dL (7-18); CALCIUM 8.3 mg/dL (8.5-10.1); CHLORIDE 100 mmol/L (98-107); CO2 32 mmol/L (21-32); CREATININE 1.1 mg/dL (0.55-1.3); GLUCOSE,RANDOM 158 mg/dL (74-106); POTASSIUM 3.7 mmol/L (3.5-5.1); SGOT/AST 18 U/L (15-37); SGPT/ALT 12 U/L (13-61); SODIUM 139 mmol/L (136-145)
[2018-06-06] MEDS ORDERED: PT OWN MED DRAWER 7, Y5N ONE (09:50)
[2018-06-06] MEDS: FUROSEMIDE 40 MG/4 ML INJECTABLE VIAL IVPUSH SCH (10:13)
[2018-06-06] MEDS: LIPASE/PROTEASE/AMYLASE 36,000 UNIT CAPSULE PO SCH ×3 (10:13→17:26)
[2018-06-06] MEDS: DONEPEZIL HCL 10 MG TABLET (FP) PO SCH (10:13)
[2018-06-06] MEDS: DIVALPROEX SODIUM 250 MG TABLET E.C. PO SCH ×2 (10:13→21:56)
[2018-06-06] MEDS: FERROUS SO4 325 MG TABLET (FP) PO SCH (10:13)
[2018-06-06] MEDS: ASPIRIN 81 MG CHEWABLE TABLETS PO SCH (10:13)
[2018-06-06] MEDS: PANTOPRAZOLE 40 MG TABLET (FP) PO SCH (10:13)
[2018-06-06] MEDS: POLYETHYLENE GLYCOL 3350 119 GM BTL PO SCH (10:14)
[2018-06-06] MEDS: PRAMIPEXOLE DIHYDROCHLORIDE 1 MG TABLET PO SCH (10:14)
[2018-06-06] MEDS: NIFEdipine E.R 60 MG TABLET (UD) PO SCH (10:15)
[2018-06-06] MEDS: traMADol HCL 50 MG TABLET PO SCH ×2 (10:30→21:56)
--- NOTE | 2018-06-06 12:37 | PN ---
Progress Note, Physician Chief Complaint: patient seen and examined in bed eating fruit says she is better on iv lasix - Current Medication List Current Medications: Active Medications Acetaminophen (Tylenol -) 650 mg PO Q4H PRN PRN Reason: PAIN LEVEL 1-5 Last Admin: 06/03/18 14:27 Dose: 650 mg Aspirin (Asa -) 81 mg PO DAILY [facility] Last Admin: 06/06/18 10:13 Dose: 81 mg Atorvastatin Calcium (Lipitor -) 10 mg PO HS [facility] Last Admin: 06/05/18 22:51 Dose: 10 mg Bupropion HCl (Wellbutrin Xl -) 150 mg PO DAILY [facility] Last Admin: 06/06/18 10:13 Dose: 150 mg Divalproex Sodium (Depakote -) 250 mg PO BID [facility] Last Admin: 06/06/18 10:13 Dose: 250 mg Donepezil HCl (Aricept -) 10 mg PO DAILY [facility] Last Admin: 06/06/18 10:13 Dose: 10 mg Ferrous Sulfate (Feosol -) 325 mg PO DAILY [facility] Last Admin: 06/06/18 10:13 Dose: 325 mg Furosemide (Lasix Injection -) 40 mg IVPUSH DAILY [facility] Last Admin: 06/06/18 10:13 Dose: 40 mg Heparin Sodium (Porcine) (Heparin -) 5,000 unit SQ TID [facility] Last Admin: 06/06/18 06:05 Dose: 5,000 unit Hydralazine HCl (Apresoline -) 50 mg PO TID [facility] Last Admin: 06/06/18 06:05 Dose: 50 mg Insulin Aspart (Novolog Vial Sliding Scale -) 1 vial SQ TIDAC [facility]; Protocol Last Admin: 06/06/18 12:16 Dose: Not Given Metoclopramide HCl (Reglan Injection -) 10 mg IVPUSH TIDAC [facility] Last Admin: 06/06/18 12:19 Dose: 10 mg Nifedipine (Procardia Xl -) 60 mg PO DAILY [facility] Last Admin: 06/06/18 10:15 Dose: 60 mg Pancrelipase (Creon Dr 36,000 Units Capsule) 1 cap PO TIDCM [facility] Last Admin: 06/06/18 12:19 Dose: 1 cap Pantoprazole Sodium (Protonix -) 40 mg PO DAILY [facility] Last Admin: 06/06/18 10:13 Dose: 40 mg Polyethylene Glycol (Miralax (For Daily Use) -) 17 gm PO DAILY [facility] Last Admin: 06/06/18 10:14 Dose: Not Given Pramipexole Dihydrochloride (Mirapex -) 1 mg PO DAILY [facility] Last Admin: 06/06/18 10:14 Dose: 1 mg Tramadol HCl (Ultram -) 50 mg PO BID [facility] Last Admin: 06/06/18 10:30 Dose: Not Given - Objective Vital Signs: Vital Signs Temperature 98.8 F 06/06/18 06:00 Pulse Rate 79 06/06/18 06:00 Respiratory Rate 18 06/06/18 06:00 Blood Pressure 130/71 06/06/18 06:00 O2 Sat by Pulse Oximetry (%) 96 06/05/18 21:00 Constitutional: Yes: Calm Cardiovascular: Yes: Regular Rate and Rhythm, S1, S2 Respiratory: Yes: Diminished, On Nasal O2 Gastrointestinal: Yes: Normal Bowel Sounds, Soft Edema: Yes Neurological: Yes: Alert Labs: CBC, BMP 06/06/18 06:00 06/06/18 06:00 INR, PTT INR 1.07 (0.83-1.09) 06/02/18 08:05 Problem List - Problems (1) Edema Assessment/Plan: iv lasix daily weight repeat cxr noted pulm on board oxygen via nasal canula Code(s): R60.9 - EDEMA, UNSPECIFIED Qualifiers: Edema type: unspecified Qualified Code(s): R60.9 - Edema, unspecified (2) SOB (shortness of breath) Assessment/Plan: lasix iv for now echo show left ventricle size and thickness is normal and ejection fraction 55- 60% diastolic heart failure oxygen via nasal canula Code(s): R06.02 - SHORTNESS OF BREATH (3) HTN (hypertension) Assessment/Plan: hydralazine and nifedipine dose decreased on low dose metoprolol Code(s): I10 - ESSENTIAL (PRIMARY) HYPERTENSION (4) Anemia Assessment/Plan: iron panel noted % iron is 8 will give venofer monitor h/h Code(s): D64.9 - ANEMIA, UNSPECIFIED Qualifiers: Anemia type: iron deficiency (5) Hyponatremia Assessment/Plan: will monitor sodium level improving from 132 to 134- 139 urine studies ordered Code(s): E87.1 - HYPO-OSMOLALITY AND HYPONATREMIA
[2018-06-06] MEDS ORDERED: IRON SUCROSE INJECTION 200 MG in SODIUM CHLORIDE 90 ML IVPB ONE (12:45)
--- NOTE | 2018-06-06 14:20 | PN ---
Progress Note (short form) - Note Progress Note: Breathing feels a little better today. Less SOB. No CP . Intake & Output 06/03/18 06/04/18 06/05/18 06/06/18 23:59 23:59 23:59 23:59 Intake Total 220 1170 150 Balance 220 1170 150 Weight 136 lb Last Vital Signs Temp Pulse Resp BP Pulse Ox 98.8 F 79 18 130/71 96 06/06/18 06:00 06/06/18 06:00 06/06/18 06:00 06/06/18 06:00 06/05/18 21:00 Active Medications Acetaminophen (Tylenol -) 650 mg PO Q4H PRN PRN Reason: PAIN LEVEL 1-5 Last Admin: 06/03/18 14:27 Dose: 650 mg Aspirin (Asa -) 81 mg PO DAILY [facility] Last Admin: 06/06/18 10:13 Dose: 81 mg Atorvastatin Calcium (Lipitor -) 10 mg PO HS [facility] Last Admin: 06/05/18 22:51 Dose: 10 mg Bupropion HCl (Wellbutrin Xl -) 150 mg PO DAILY [facility] Last Admin: 06/06/18 10:13 Dose: 150 mg Divalproex Sodium (Depakote -) 250 mg PO BID [facility] Last Admin: 06/06/18 10:13 Dose: 250 mg Donepezil HCl (Aricept -) 10 mg PO DAILY [facility] Last Admin: 06/06/18 10:13 Dose: 10 mg Ferrous Sulfate (Feosol -) 325 mg PO DAILY [facility] Last Admin: 06/06/18 10:13 Dose: 325 mg Furosemide (Lasix Injection -) 40 mg IVPUSH DAILY [facility] Last Admin: 06/06/18 10:13 Dose: 40 mg Heparin Sodium (Porcine) (Heparin -) 5,000 unit SQ TID [facility] Last Admin: 06/06/18 06:05 Dose: 5,000 unit Hydralazine HCl (Apresoline -) 50 mg PO TID [facility] Last Admin: 06/06/18 06:05 Dose: 50 mg Insulin Aspart (Novolog Vial Sliding Scale -) 1 vial SQ TIDAC [facility]; Protocol Last Admin: 06/06/18 12:16 Dose: Not Given Metoclopramide HCl (Reglan Injection -) 10 mg IVPUSH TIDAC [facility] Last Admin: 06/06/18 12:19 Dose: 10 mg Nifedipine (Procardia Xl -) 60 mg PO DAILY [facility] Last Admin: 06/06/18 10:15 Dose: 60 mg Pancrelipase (Creon Dr 36,000 Units Capsule) 1 cap PO TIDCM [facility] Last Admin: 06/06/18 12:19 Dose: 1 cap Pantoprazole Sodium (Protonix -) 40 mg PO DAILY [facility] Last Admin: 06/06/18 10:13 Dose: 40 mg Polyethylene Glycol (Miralax (For Daily Use) -) 17 gm PO DAILY [facility] Last Admin: 06/06/18 10:14 Dose: Not Given Pramipexole Dihydrochloride (Mirapex -) 1 mg PO DAILY [facility] Last Admin: 06/06/18 10:14 Dose: 1 mg Tramadol HCl (Ultram -) 50 mg PO BID [facility] Last Admin: 06/06/18 10:30 Dose: Not Given Constitutional: Yes: NAD Eyes: Yes: Conjunctiva Clear, EOM Intact HENT: Yes: Atraumatic, Normocephalic Neck: Yes: Supple, Trachea Midline Cardiovascular: Yes: Regular Rate and Rhythm Respiratory: Yes: basilar rales/rhonchi ...Clubbing: No Gastrointestinal: Yes: Normal Bowel Sounds, Soft. No: Tenderness Edema: Yes Neurological: Yes: Alert Labs: Laboratory Results - last 24 hr 06/03/18 06/05/18 06/05/18 11:31 16:04 22:50 WBC RBC Hgb Hct MCV MCH MCHC RDW Plt Count MPV Absolute Neuts (auto) Neutrophils % Lymphocytes % Monocytes % Eosinophils % Basophils % Nucleated RBC % Sodium Potassium Chloride Carbon Dioxide Anion Gap BUN Creatinine Creat Clearance w eGFR POC Glucometer 179 248 160 Random Glucose Calcium Total Bilirubin AST ALT Alkaline Phosphatase Total Protein Albumin 06/06/18 06/06/18 06/06/18 06:00 06:00 06:04 WBC 5.1 RBC 3.45 L Hgb 9.6 L Hct 27.5 L MCV 79.7 L MCH 27.9 MCHC 35.1 RDW 16.4 H Plt Count 360 D MPV 6.8 L Absolute Neuts (auto) 3.0 Neutrophils % 58.6 Lymphocytes % 20.0 Monocytes % 17.7 H Eosinophils % 2.8 Basophils % 0.9 Nucleated RBC % 0 Sodium 139 Potassium 3.7 Chloride 100 Carbon Dioxide 32 Anion Gap 6 L BUN 13 Creatinine 1.1 Creat Clearance w eGFR 48.29 POC Glucometer 155 Random Glucose 158 H Calcium 8.3 L Total Bilirubin 0.2 AST 18 ALT 12 L Alkaline Phosphatase 107 Total Protein 6.0 L Albumin 2.5 L 06/06/18 11:43 WBC RBC Hgb Hct MCV MCH MCHC RDW Plt Count MPV Absolute Neuts (auto) Neutrophils % Lymphocytes % Monocytes % Eosinophils % Basophils % Nucleated RBC % Sodium Potassium Chloride Carbon Dioxide Anion Gap BUN Creatinine Creat Clearance w eGFR POC Glucometer 173 Random Glucose Calcium Total Bilirubin AST ALT Alkaline Phosphatase Total Protein Albumin Problem List - Problems (1) Acute on chronic diastolic (congestive) heart failure Code(s): I50.33 - ACUTE ON CHRONIC DIASTOLIC (CONGESTIVE) HEART FAILURE (2) Pleural effusion Code(s): J90 - PLEURAL EFFUSION, NOT ELSEWHERE CLASSIFIED Assessment/Plan Acute on Chronic Diastolic Heart Failure Volume Overload Hyponatremia Pleural Effusions from above HTN DM Hyperlipidemia Parkinsons - Lasix - monitor urine output, creatinine - daily weights - O2 to keep SpO2 >90% - defer thoracentesis as clinical response to Lasix - DVT prophylaxis Dr Zee
--- NOTE | 2018-06-06 21:12 | PN ---
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 Active Medications Acetaminophen (Tylenol -) 650 mg PO Q4H PRN PRN Reason: PAIN LEVEL 1-5 Last Admin: 06/03/18 14:27 Dose: 650 mg Aspirin (Asa -) 81 mg PO DAILY [facility] Last Admin: 06/06/18 10:13 Dose: 81 mg Atorvastatin Calcium (Lipitor -) 10 mg PO HS [facility] Last Admin: 06/05/18 22:51 Dose: 10 mg Bupropion HCl (Wellbutrin Xl -) 150 mg PO DAILY [facility] Last Admin: 06/06/18 10:13 Dose: 150 mg Divalproex Sodium (Depakote -) 250 mg PO BID [facility] Last Admin: 06/06/18 10:13 Dose: 250 mg Donepezil HCl (Aricept -) 10 mg PO DAILY [facility] Last Admin: 06/06/18 10:13 Dose: 10 mg Ferrous Sulfate (Feosol -) 325 mg PO DAILY [facility] Last Admin: 06/06/18 10:13 Dose: 325 mg Furosemide (Lasix Injection -) 40 mg IVPUSH DAILY [facility] Last Admin: 06/06/18 10:13 Dose: 40 mg Heparin Sodium (Porcine) (Heparin -) 5,000 unit SQ TID [facility] Last Admin: 06/06/18 15:09 Dose: 5,000 unit Hydralazine HCl (Apresoline -) 50 mg PO TID [facility] Last Admin: 06/06/18 15:09 Dose: 50 mg Insulin Aspart (Novolog Vial Sliding Scale -) 1 vial SQ TIDAC [facility]; Protocol Last Admin: 06/06/18 17:25 Dose: 2 units Metoclopramide HCl (Reglan Injection -) 10 mg IVPUSH TIDAC [facility] Last Admin: 06/06/18 17:25 Dose: 10 mg Nifedipine (Procardia Xl -) 60 mg PO DAILY [facility] Last Admin: 06/06/18 10:15 Dose: 60 mg Pancrelipase ([place] 36,000 Units Capsule) 1 cap PO TIDCM [facility] Last Admin: 06/06/18 17:26 Dose: 1 cap Pantoprazole Sodium (Protonix -) 40 mg PO DAILY [facility] Last Admin: 06/06/18 10:13 Dose: 40 mg Polyethylene Glycol (Miralax (For Daily Use) -) 17 gm PO DAILY [facility] Last Admin: 06/06/18 10:14 Dose: Not Given Pramipexole Dihydrochloride (Mirapex -) 1 mg PO DAILY [facility] Last Admin: 06/06/18 10:14 Dose: 1 mg Tramadol HCl (Ultram -) 50 mg PO BID [facility] Last Admin: 06/06/18 10:30 Dose: Not Given Last Vital Signs Temp Pulse Resp BP Pulse Ox 98.0 F 78 19 138/63 97 06/06/18 18:00 06/06/18 18:00 06/06/18 18:00 06/06/18 18:00 06/06/18 10:00 alert in nad, sitting in chair lungs fine rales heart reg abd soft nontender ext no edema CBC, BMP 06/06/18 06:00 06/06/18 06:00 IMP- hyponatremia- stable CHF- well compensated Azotemia resolved no labs today Plan- cmp tomorrow
[2018-06-06] MEDS: ATORVASTATIN CA 10 MG TABLET (FP) PO SCH (21:56)
[2018-06-07] MEDS: hydrALAZINE HCL 50 MG TABLET (FP) PO SCH ×3 (05:19→21:38)
[2018-06-07] MEDS: HEPARIN NA (PORCINE) 5,000 UNITS/ML 1ML VIAL SQ SCH ×3 (05:19→21:38)
[2018-06-07] MEDS: INSULIN SLIDING SCALE (NOVOLOG) 1 VIAL SQ SCH ×3 (06:09→17:04)
[2018-06-07] MEDS: METOCLOPRAMIDE HCL INJECTION 10 MG/2 ML VIAL IVPUSH SCH ×3 (06:12→17:16)
[2018-06-07 06:34] LABS: BASO % 1.3 % (0-2.0); EOS % 3.9 % (0-4.5); HEMATOCRIT 26.1 % (32.4-45.2); HEMOGLOBIN 9.1 GM/dL (10.7-15.3); MCH 27.8 pg (25.7-33.7); MCHC 34.7 g/dl (32.0-36.0); MEAN PLT VOLUME 6.9 fl (7.5-11.1); MONO % 17.2 % (3.8-10.2); NEUT % 55.6 % (42.8-82.8); PLATELET COUNT 355 K/MM3 (134-434); RBC 3.26 M/mm3 (3.60-5.2); RDW 16.4 % (11.6-15.6); WHITE BLOOD COUNT 5.1 K/mm3 (4.0-10.0)
[2018-06-07 06:58] LABS: ALBUMIN 2.5 g/dl (3.4-5.0); ALK PHOS 108 U/L (45-117); ANION GAP 5 MMOL/L (8-16); BILIRUBIN,TOTAL 0.2 mg/dL (0.2-1); BLOOD UREA NITROGEN 13 mg/dL (7-18); CALCIUM 8.3 mg/dL (8.5-10.1); CHLORIDE 101 mmol/L (98-107); CO2 33 mmol/L (21-32); CREATININE 1.1 mg/dL (0.55-1.3); GLUCOSE,RANDOM 174 mg/dL (74-106); POTASSIUM 3.7 mmol/L (3.5-5.1); SGOT/AST 16 U/L (15-37); SGPT/ALT 13 U/L (13-61); SODIUM 139 mmol/L (136-145)
[2018-06-07] MEDS ORDERED: PT OWN MED DRAWER 7, Y5N ONE ×2 (08:57→21:31)
[2018-06-07] MEDS: FUROSEMIDE 40 MG/4 ML INJECTABLE VIAL IVPUSH SCH ×2 (09:23→14:01)
[2018-06-07] MEDS: LIPASE/PROTEASE/AMYLASE 36,000 UNIT CAPSULE PO SCH ×3 (09:24→17:16)
[2018-06-07] MEDS: FERROUS SO4 325 MG TABLET (FP) PO SCH (09:25)
[2018-06-07] MEDS: DONEPEZIL HCL 10 MG TABLET (FP) PO SCH (09:25)
[2018-06-07] MEDS: PANTOPRAZOLE 40 MG TABLET (FP) PO SCH (09:25)
[2018-06-07] MEDS: PRAMIPEXOLE DIHYDROCHLORIDE 1 MG TABLET PO SCH (09:25)
[2018-06-07] MEDS: ASPIRIN 81 MG CHEWABLE TABLETS PO SCH (09:25)
[2018-06-07] MEDS: DIVALPROEX SODIUM 250 MG TABLET E.C. PO SCH ×2 (09:25→21:38)
[2018-06-07] MEDS: NIFEdipine E.R 60 MG TABLET (UD) PO SCH (09:26)
[2018-06-07] MEDS: POLYETHYLENE GLYCOL 3350 119 GM BTL PO SCH (09:26)
--- NOTE | 2018-06-07 09:31 | PN ---
Progress Note, Physician - Current Medication List Current Medications: Active Medications Acetaminophen (Tylenol -) 650 mg PO Q4H PRN PRN Reason: PAIN LEVEL 1-5 Last Admin: 06/03/18 14:27 Dose: 650 mg Aspirin (Asa -) 81 mg PO DAILY [facility] Last Admin: 06/07/18 09:25 Dose: 81 mg Atorvastatin Calcium (Lipitor -) 10 mg PO HS [facility] Last Admin: 06/06/18 21:56 Dose: 10 mg Bupropion HCl (Wellbutrin Xl -) 150 mg PO DAILY [facility] Last Admin: 06/07/18 09:25 Dose: 150 mg Divalproex Sodium (Depakote -) 250 mg PO BID [facility] Last Admin: 06/07/18 09:25 Dose: 250 mg Donepezil HCl (Aricept -) 10 mg PO DAILY [facility] Last Admin: 06/07/18 09:25 Dose: 10 mg Ferrous Sulfate (Feosol -) 325 mg PO DAILY [facility] Last Admin: 06/07/18 09:25 Dose: 325 mg Furosemide (Lasix Injection -) 40 mg IVPUSH DAILY [facility] Last Admin: 06/07/18 09:23 Dose: 40 mg Heparin Sodium (Porcine) (Heparin -) 5,000 unit SQ TID [facility] Last Admin: 06/07/18 05:19 Dose: 5,000 unit Hydralazine HCl (Apresoline -) 50 mg PO TID [facility] Last Admin: 06/07/18 05:19 Dose: 50 mg Insulin Aspart ([facility] V[facility] Sliding Scale -) [facility]; Protocol Last Admin: 06/07/18 06:09 Dose: Not Given Metoclopramide HCl (Reglan Injection -) 10 mg IVPUSH TIDAC [facility] Last Admin: 06/07/18 06:12 Dose: 10 mg Nifedipine (Procardia Xl -) 60 mg PO DAILY [facility] Last Admin: 06/07/18 09:26 Dose: 60 mg Pancrelipase (Creon Dr 36,000 Units Capsule) 1 cap PO TIDCM [facility] Last Admin: 06/07/18 09:24 Dose: 1 cap Pantoprazole Sodium (Protonix -) 40 mg PO DAILY [facility] Last Admin: 06/07/18 09:25 Dose: 40 mg Polyethylene Glycol (Miralax (For Daily Use) -) 17 gm PO DAILY [facility] Last Admin: 06/07/18 09:26 Dose: 17 grams Pramipexole Dihydrochloride (Mirapex -) 1 mg PO DAILY [facility] Last Admin: 06/07/18 09:25 Dose: 1 mg Tramadol HCl (Ultram -) 50 mg PO BID [facility] Last Admin: 06/06/18 21:56 Dose: Not Given - Objective Vital Signs: Vital Signs Temperature 97.9 F 06/07/18 09:27 Pulse Rate 82 06/07/18 09:27 Respiratory Rate 20 06/07/18 09:27 Blood Pressure 154/86 06/07/18 09:27 O2 Sat by Pulse Oximetry (%) 99 06/06/18 21:00 Respiratory: Yes: On Nasal O2, Rales (at the bases) Gastrointestinal: Yes: Normal Bowel Sounds, Soft Edema: Yes Labs: CBC, BMP 06/07/18 06:00 06/07/18 06:00 INR, PTT INR 1.07 (0.83-1.09) 06/02/18 08:05 Assessment/Plan - Problems (1) Edema Assessment/Plan: iv albumin --iv lasix daily weight repeat cxr noted pulm on board oxygen via nasal canula Code(s): R60.9 - EDEMA, UNSPECIFIED Qualifiers: Edema type: unspecified Qualified Code(s): R60.9 - Edema, unspecified (2) SOB (shortness of breath)-Chf Assessment/Plan: lasix iv for now echo show left ventricle size and thickness is normal and ejection fraction 55- 60% diastolic heart failure oxygen via nasal canula Code(s): R06.02 - SHORTNESS OF BREATH (3) HTN (hypertension) Assessment/Plan: hydralazine and nifedipine dose decreased on low dose metoprolol Code(s): I10 - ESSENTIAL (PRIMARY) HYPERTENSION (4) Anemia Assessment/Plan: iron panel noted % iron is 8 will give venofer monitor h/h Code(s): D64.9 - ANEMIA, UNSPECIFIED Qualifiers: Anemia type: iron deficiency (5) Hyponatremia Assessment/Plan: will monitor sodium level improving from 132 to 134- 139 urine studies ordered Code(s): E87.1 - HYPO-OSMOLALITY AND HYPONATREMIA
[2018-06-07] MEDS: ALBUMIN HUMAN 25% 12.5 GM/50 ML VIAL IVPB SCH ×2 (11:57→21:38)
[2018-06-07] MEDS: traMADol HCL 50 MG TABLET PO SCH ×2 (11:57→21:37)
--- NOTE | 2018-06-07 13:13 | PN ---
Progress Note, Physician History of Present Illness: pulmonary alert,no distress,sob improving,cp - Current Medication List Current Medications: Active Medications Acetaminophen (Tylenol -) 650 mg PO Q4H PRN PRN Reason: PAIN LEVEL 1-5 Last Admin: 06/03/18 14:27 Dose: 650 mg Albumin Human (Albumin Human 25%) 12.5 gm IVPB BID [facility] Stop: 06/08/18 22:01 Last Admin: 06/07/18 11:57 Dose: 12.5 gm Aspirin (Asa -) 81 mg PO DAILY [facility] Last Admin: 06/07/18 09:25 Dose: 81 mg Atorvastatin Calcium (Lipitor -) 10 mg PO HS [facility] Last Admin: 06/06/18 21:56 Dose: 10 mg Bupropion HCl (Wellbutrin Xl -) 150 mg PO DAILY [facility] Last Admin: 06/07/18 09:25 Dose: 150 mg Divalproex Sodium (Depakote -) 250 mg PO BID [facility] Last Admin: 06/07/18 09:25 Dose: 250 mg Donepezil HCl (Aricept -) 10 mg PO DAILY [facility] Last Admin: 06/07/18 09:25 Dose: 10 mg Ferrous Sulfate (Feosol -) 325 mg PO DAILY [facility] Last Admin: 06/07/18 09:25 Dose: 325 mg Furosemide (Lasix Injection -) 40 mg IVPUSH BIDLASIX [facility] Heparin Sodium (Porcine) (Heparin -) 5,000 unit SQ TID [facility] Last Admin: 06/07/18 05:19 Dose: 5,000 unit Hydralazine HCl (Apresoline -) 50 mg PO TID [facility] Last Admin: 06/07/18 05:19 Dose: 50 mg Insulin Aspart (Novolog Vial Sliding Scale -) 1 vial SQ TIDAC [facility]; Protocol Last Admin: 06/07/18 11:56 Dose: 2 units Metoclopramide HCl (Reglan Injection -) 10 mg IVPUSH TIDAC [facility] Last Admin: 06/07/18 06:12 Dose: 10 mg Nifedipine (Procardia Xl -) 60 mg PO DAILY [facility] Last Admin: 06/07/18 09:26 Dose: 60 mg Pancrelipase (Creon Dr 36,000 Units Capsule) 1 cap PO TIDCM [facility] Last Admin: 06/07/18 09:24 Dose: 1 cap Pantoprazole Sodium (Protonix -) 40 mg PO DAILY [facility] Last Admin: 06/07/18 09:25 Dose: 40 mg Polyethylene Glycol (Miralax (For Daily Use) -) 17 gm PO DAILY [facility] Last Admin: 06/07/18 09:26 Dose: 17 grams Pramipexole Dihydrochloride (Mirapex -) 1 mg PO DAILY [facility] Last Admin: 06/07/18 09:25 Dose: 1 mg Tramadol HCl (Ultram -) 50 mg PO BID [facility] Last Admin: 06/07/18 11:57 Dose: Not Given - Objective Vital Signs: Vital Signs Temperature 97.9 F 06/07/18 09:27 Pulse Rate 82 06/07/18 09:27 Respiratory Rate 20 06/07/18 09:27 Blood Pressure 154/86 06/07/18 09:27 O2 Sat by Pulse Oximetry (%) 99 06/06/18 21:00 Constitutional: Yes: Well Nourished, Calm Eyes: Yes: WNL HENT: Yes: WNL Neck: Yes: WNL Cardiovascular: Yes: Regular Rate and Rhythm, S1, S2 Respiratory: Yes: Rales (bibasilar crackles) Gastrointestinal: Yes: Normal Bowel Sounds, Soft Extremities: Yes: WNL Edema: No Labs: CBC, BMP 06/07/18 06:00 06/07/18 06:00 INR, PTT INR 1.07 (0.83-1.09) 06/02/18 08:05 Problem List - Problems (1) HTN (hypertension) Code(s): I10 - ESSENTIAL (PRIMARY) HYPERTENSION (2) Hyponatremia Code(s): E87.1 - HYPO-OSMOLALITY AND HYPONATREMIA (3) SOB (shortness of breath) Code(s): R06.02 - SHORTNESS OF BREATH (4) Diabetes mellitus with neuropathy Code(s): E11.40 - TYPE 2 DIABETES MELLITUS WITH DIABETIC NEUROPATHY, UNSP (5) HLD (hyperlipidemia) Code(s): E78.5 - HYPERLIPIDEMIA, UNSPECIFIED (6) Parkinson disease Code(s): G20 - PARKINSON'S DISEASE Assessment/Plan Problem List - Problems (1) Acute on chronic diastolic (congestive) heart failure Code(s): I50.33 - ACUTE ON CHRONIC DIASTOLIC (CONGESTIVE) HEART FAILURE (2) Pleural effusion Code(s): J90 - PLEURAL EFFUSION, NOT ELSEWHERE CLASSIFIED Assessment/Plan Acute on Chronic Diastolic Heart Failure clinically improving Volume Overload Hyponatremia corrected Pleural Effusions from above HTN DM Hyperlipidemia Parkinsons - Lasix - monitor urine output, creatinine - daily weights - O2 to keep SpO2 >90% - defer thoracentesis as clinical response to Lasix - DVT prophylaxis DR CAMPA
[2018-06-07] MEDS ORDERED: FUROSEMIDE 20 MG TABLET (FP) PO ONE (15:00)
--- NOTE | 2018-06-07 15:00 | PN ---
Progress Note, Physician History of Present Illness: Pt seen and examined at bedside. She is awake and appears comfortable. She denies shortness of breath. - Current Medication List Current Medications: Active Medications Acetaminophen (Tylenol -) 650 mg PO Q4H PRN PRN Reason: PAIN LEVEL 1-5 Last Admin: 06/03/18 14:27 Dose: 650 mg Albumin Human (Albumin Human 25%) 12.5 gm IVPB BID [facility] Stop: 06/08/18 22:01 Last Admin: 06/07/18 11:57 Dose: 12.5 gm Aspirin (Asa -) 81 mg PO DAILY [facility] Last Admin: 06/07/18 09:25 Dose: 81 mg Atorvastatin Calcium (Lipitor -) 10 mg PO HS [facility] Last Admin: 06/06/18 21:56 Dose: 10 mg Bupropion HCl (Wellbutrin Xl -) 150 mg PO DAILY [facility] Last Admin: 06/07/18 09:25 Dose: 150 mg Divalproex Sodium (Depakote -) 250 mg PO BID [facility] Last Admin: 06/07/18 09:25 Dose: 250 mg Donepezil HCl (Aricept -) 10 mg PO DAILY [facility] Last Admin: 06/07/18 09:25 Dose: 10 mg Ferrous Sulfate (Feosol -) 325 mg PO DAILY [facility] Last Admin: 06/07/18 09:25 Dose: 325 mg Furosemide (Lasix Injection -) 40 mg IVPUSH BIDLASIX [facility] Last Admin: 06/07/18 14:01 Dose: 40 mg Heparin Sodium (Porcine) (Heparin -) 5,000 unit SQ TID [facility] Last Admin: 06/07/18 14:01 Dose: 5,000 unit Hydralazine HCl (Apresoline -) 50 mg PO TID [facility] Last Admin: 06/07/18 14:01 Dose: 50 mg Insulin Aspart (Novolog Vial Sliding Scale -) 1 vial SQ TIDAC [facility]; Protocol Last Admin: 06/07/18 11:56 Dose: 2 units Metoclopramide HCl (Reglan Injection -) 10 mg IVPUSH TIDAC [facility] Last Admin: 06/07/18 11:00 Dose: 10 mg Nifedipine (Procardia Xl -) 60 mg PO DAILY [facility] Last Admin: 06/07/18 09:26 Dose: 60 mg Pancrelipase (Creon Dr 36,000 Units Capsule) 1 cap PO TIDCM [facility] Last Admin: 03/19/19 12:01 Dose: 1 cap Pantoprazole Sodium (Protonix -) 40 mg PO DAILY [facility] Last Admin: 06/07/18 09:25 Dose: 40 mg Polyethylene Glycol (Miralax (For Daily Use) -) 17 gm PO DAILY [facility] Last Admin: 06/07/18 09:26 Dose: 17 grams Pramipexole Dihydrochloride (Mirapex -) 1 mg PO DAILY [facility] Last Admin: 06/07/18 09:25 Dose: 1 mg Tramadol HCl (Ultram -) 50 mg PO BID [facility] Last Admin: 06/07/18 11:57 Dose: Not Given - Objective Vital Signs: Vital Signs Temperature 98.1 F 06/07/18 14:00 Pulse Rate 83 06/07/18 14:00 Respiratory Rate 20 06/07/18 14:00 Blood Pressure 131/51 L 06/07/18 14:00 O2 Sat by Pulse Oximetry (%) 99 06/07/18 09:00 Constitutional: Yes: Calm Eyes: Yes: Conjunctiva Clear HENT: Yes: Atraumatic Neck: Yes: Supple Cardiovascular: Yes: S1, S2 Respiratory: Yes: On Nasal O2 Gastrointestinal: Yes: Soft Genitourinary: Yes: Incontinence Musculoskeletal: Yes: WNL Edema: Yes Edema: LLE: 2+, RLE: 2+ Neurological: Yes: Confusion Labs: CBC, BMP 06/07/18 06:00 06/07/18 06:00 INR, PTT INR 1.07 (0.83-1.09) 06/02/18 08:05 Problem List - Problems (1) CHF (congestive heart failure) Code(s): I50.9 - HEART FAILURE, UNSPECIFIED Qualifiers: Heart failure type: unspecified Heart failure chronicity: acute Qualified Code(s): I50.9 - Heart failure, unspecified (2) Edema Code(s): R60.9 - EDEMA, UNSPECIFIED Qualifiers: Edema type: unspecified Qualified Code(s): R60.9 - Edema, unspecified (3) SOB (shortness of breath) Code(s): R06.02 - SHORTNESS OF BREATH Assessment/Plan Current Medications Generic Name Dose Route Start Last Admin Trade Name Freq PRN Reason Stop Dose Admin Acetaminophen 650 mg 06/02/18 05:54 Tylenol - PO Q4H PRN PAIN LEVEL 1-5 Aspirin 81 mg 06/02/18 10:00 06/02/18 11:22 Asa - PO 81 mg DAILY [facility] Administration Atorvastatin Calcium 10 mg 06/02/18 22:00 Lipitor - PO HS [facility] Bupropion HCl 150 mg 06/02/18 10:00 06/02/18 11:24 Wellbutrin Xl - PO 150 mg DAILY [facility] Administration Divalproex Sodium 250 mg 06/02/18 10:00 06/02/18 11:22 Depakote - PO 250 mg BID [facility] Administration Donepezil HCl 10 mg 06/02/18 10:00 06/02/18 11:24 Aricept - PO 10 mg DAILY [facility] Administration Ferrous Sulfate 325 mg 06/02/18 10:00 06/02/18 11:22 Feosol - PO 325 mg DAILY [facility] Administration Furosemide 40 mg 06/02/18 10:00 06/02/18 11:22 Lasix - PO 40 mg DAILY [facility] Administration Heparin Sodium (Porcine) 5,000 unit 06/02/18 06:00 06/02/18 07:10 Heparin - SQ 5,000 unit TID [facility] Administration Hydralazine HCl 50 mg 06/02/18 06:00 06/02/18 07:11 Apresoline - PO 50 mg TID [facility] Administration Nifedipine 60 mg 06/02/18 10:00 06/02/18 09:19 Procardia Xl - PO 60 mg DAILY [facility] Administration Pancrelipase 1 cap 06/02/18 08:00 06/02/18 11:29 Credyana Sweeney 36,000 Units Capsule PO Not Given TIDCM [facility] Pantoprazole Sodium 40 mg 06/02/18 10:00 06/02/18 11:22 Protonix - PO 40 mg DAILY [facility] Administration Polyethylene Glycol 17 gm 06/02/18 10:00 06/02/18 11:25 Miralax (For Daily Use) - PO Not Given DAILY [facility] Pramipexole Dihydrochloride 1 mg 06/02/18 10:00 06/02/18 11:25 Mirapex - PO 1 mg DAILY [facility] Administration Tramadol HCl 50 mg 06/02/18 10:00 06/02/18 11:22 Ultram - PO 50 mg BID [facility] Administration Impression 1. hyponatremia 2. fluid overload 3. HLD 4. shortness of breath 5. HTN 6. DM 7. proteinuria Plan - check ua - cont lasix - will give an extra dose today - repeat labs in am - echo reviewed - sodium is improved Dr Yu
[2018-06-07] MEDS: ATORVASTATIN CA 10 MG TABLET (FP) PO SCH (21:38)
[2018-06-08] MEDS ORDERED: ALBUTEROL SO4 2.5/IPRATROPIUM 0.5 INH SOL 3 ML VIAL.NEB. NEB ONE (00:08)
--- NOTE | 2018-06-08 01:22 | HOSP ---
Subjective - Review of Symptoms Events since last encounter: Hospitalist Encounter Notified by the RN that the patient was wheezing after receiving Albumin IV. Ordered Duoneb x1, per RN the patient was still wheezing. Subjective: Arrived to bedside, patient is alert, awake and oriented. Patient reports "rattling in her chest". Patient denies CP or palpitations. Upon auscultation + Scattered wheeze and diffuse crackles to bases noted. Plan: ABG stat Lasix IV x1 Pulmonary: Yes: Dyspnea, Cough Physical Examination Vital Signs: Vital Signs Temperature 98.0 F 06/07/18 22:00 Pulse Rate 83 06/07/18 22:00 Respiratory Rate 20 06/07/18 22:00 Blood Pressure 150/62 06/07/18 22:00 O2 Sat by Pulse Oximetry (%) 97 06/07/18 21:00 Constitutional: Yes: Mild Distress Eyes: Yes: WNL, Conjunctiva Clear, EOM Intact, PERRL HENT: Yes: WNL, Atraumatic, Normocephalic Neck: Yes: WNL, Supple, Trachea Midline Cardiovascular: Yes: Pulse Irregular, S1, S2 Respiratory: Yes: On Nasal O2, Rhonchi, Wheezes Edema: Yes Edema: LLE: 1+, RLE: 1+ Peripheral Pulses WNL: Yes Neurological: Yes: WNL, Alert, Oriented, Cran Nerves II-XII Intact Psychiatric: Yes: WNL, Alert, Oriented Labs: CBC, BMP 06/07/18 06:00 06/07/18 06:00 Laboratory Results - last 24 hr 06/07/18 06/07/18 06/07/18 05:17 06:00 06:00 WBC 5.1 RBC 3.26 L Hgb 9.1 L Hct 26.1 L MCV 80.0 MCH 27.8 MCHC 34.7 RDW 16.4 H Plt Count 355 MPV 6.9 L Absolute Neuts (auto) 2.9 Neutrophils % 55.6 Lymphocytes % 22.0 Monocytes % 17.2 H Eosinophils % 3.9 Basophils % 1.3 Nucleated RBC % 0 Anticoagulation Therapy O2 Delivery Device Oxygen Flow Rate Vent Mode Vent Rate Mechanical Rate Pressure Support Vent Sodium 139 Potassium 3.7 Chloride 101 Carbon Dioxide 33 H Anion Gap 5 L BUN 13 Creatinine 1.1 Creat Clearance w eGFR 48.29 POC Glucometer 168 Random Glucose 174 H Calcium 8.3 L Total Bilirubin 0.2 AST 16 ALT 13 Alkaline Phosphatase 108 Total Protein 6.0 L Albumin 2.5 L 06/07/18 06/07/18 06/08/18 11:55 17:02 01:16 WBC RBC Hgb Hct MCV MCH MCHC RDW Plt Count MPV Absolute Neuts (auto) Neutrophils % Lymphocytes % Monocytes % Eosinophils % Basophils % Nucleated RBC % Anticoagulation Therapy No Result Required. O2 Delivery Device No Result Required. Oxygen Flow Rate No Result Required. Vent Mode No Result Required. Vent Rate No Result Required. Mechanical Rate No Result Required. Pressure Support Vent No Result Required. Sodium Potassium Chloride Carbon Dioxide Anion Gap BUN Creatinine Creat Clearance w eGFR POC Glucometer 211 135 Random Glucose Calcium Total Bilirubin AST ALT Alkaline Phosphatase Total Protein Albumin Current Medications Generic Name Dose Route Start Last Admin Trade Name Freq PRN Reason Stop Dose Admin Acetaminophen 650 mg 06/02/18 05:54 06/03/18 14:27 Tylenol - PO 650 mg Q4H PRN Administration PAIN LEVEL 1-5 Albumin Human 12.5 gm 06/07/18 10:00 06/07/18 21:38 Albumin Human 25% IVPB 06/08/18 22:01 12.5 gm BID [facility] Administration Aspirin 81 mg 06/02/18 10:00 06/07/18 09:25 Asa - PO 81 mg DAILY [facility] Administration Atorvastatin Calcium 10 mg 06/02/18 22:00 06/07/18 21:38 Lipitor - PO 10 mg HS [facility] Administration Bupropion HCl 150 mg 06/02/18 10:00 06/07/18 09:25 Wellbutrin Xl - PO 150 mg DAILY [facility] Administration Divalproex Sodium 250 mg 06/02/18 10:00 06/07/18 21:38 Depakote - PO 250 mg BID [facility] Administration Donepezil HCl 10 mg 06/02/18 10:00 06/07/18 09:25 Aricept - PO 10 mg DAILY [facility] Administration Ferrous Sulfate 325 mg 06/02/18 10:00 06/07/18 09:25 Feosol - PO 325 mg DAILY [facility] Administration Furosemide 40 mg 06/07/18 14:00 06/07/18 14:01 Lasix Injection - IVPUSH 40 mg BIDLASIX [facility] Administration Heparin Sodium (Porcine) 5,000 unit 06/02/18 06:00 06/07/18 21:38 Heparin - SQ 5,000 unit TID [facility] Administration Hydralazine HCl 50 mg 06/02/18 06:00 06/07/18 21:38 Apresoline - PO 50 mg TID [facility] Administration Insulin Aspart 1 vial 06/05/18 17:00 06/07/18 17:04 Novolog Vial Sliding Scale - SQ Not Given [facility] Protocol Metoclopramide HCl 10 mg 06/05/18 12:30 06/07/18 17:16 Reglan Injection - IVPUSH 10 mg [facility] Administration Nifedipine 60 mg 06/04/18 10:00 06/07/18 09:26 Procardia Xl - PO 60 mg DAILY [facility] Administration Pancrelipase 1 cap 06/02/18 08:00 06/07/18 17:[address] 36,000 Units Capsule PO 1 cap [facility] Administration Pantoprazole Sodium 40 mg 06/02/18 10:00 06/07/18 09:25 Protonix - PO 40 mg DAILY [facility] Administration Polyethylene Glycol 17 gm 06/02/18 10:00 06/07/18 09:26 Miralax (For Daily Use) - PO 17 grams DAILY [facility] Administration Pramipexole Dihydrochloride 1 mg 06/02/18 10:00 06/07/18 09:25 Mirapex - PO 1 mg DAILY [facility] Administration Tramadol HCl 50 mg 06/02/18 10:00 06/07/18 21:37 Ultram - PO Not Given BID [facility] Hospitalist Encounter Outcome: ABG- 7.46/47.4/47.1/32.9/82.7 Per RN pt is resting appears more comfortable Received notification that the patient c/o SOB Lasix given by RN Per RN, patient breathing improved post Lasix
[2018-06-08 01:35] LABS: ARTERIAL BLD GAS O2 SATURATION 82.7 % (95-98); ARTERIAL BLOOD GAS BASE EXCESS 8.4 meq/l (-2-2); ARTERIAL BLOOD GAS PCO2 47.4 mmHg (35-45); ARTERIAL BLOOD GAS PO2 47.1 mmHg (80-105); ARTERIAL BLOOD GAS pH 7.46 (7.35-7.45)
[2018-06-08 01:38] LABS: ALLENS TEST POSITIVE
[2018-06-08] MEDS ORDERED: FUROSEMIDE 40 MG/4 ML INJECTABLE VIAL IVPUSH ONE (03:15)
[2018-06-08 06:23] LABS: BASO % 0.8 % (0-2.0); EOS % 2.9 % (0-4.5); HEMATOCRIT 25.2 % (32.4-45.2); HEMOGLOBIN 8.6 GM/dL (10.7-15.3); LYMPH % 20.9 % (8-40); MCHC 33.9 g/dl (32.0-36.0); MEAN CELL VOLUME 79.4 fl (80-96); MEAN PLT VOLUME 7.1 fl (7.5-11.1); MONO % 15.6 % (3.8-10.2); NEUT % 59.8 % (42.8-82.8); PLATELET COUNT 352 K/MM3 (134-434); RBC 3.17 M/mm3 (3.60-5.2); RDW 16.3 % (11.6-15.6); WHITE BLOOD COUNT 6.3 K/mm3 (4.0-10.0)
[2018-06-08] MEDS: INSULIN SLIDING SCALE (NOVOLOG) 1 VIAL SQ SCH ×3 (06:49→17:02)
[2018-06-08] MEDS: HEPARIN NA (PORCINE) 5,000 UNITS/ML 1ML VIAL SQ SCH ×2 (06:50→21:32)
[2018-06-08] MEDS: hydrALAZINE HCL 50 MG TABLET (FP) PO SCH ×3 (06:50→21:32)
[2018-06-08] MEDS: FUROSEMIDE 40 MG/4 ML INJECTABLE VIAL IVPUSH SCH (06:50)
[2018-06-08] MEDS: METOCLOPRAMIDE HCL INJECTION 10 MG/2 ML VIAL IVPUSH SCH ×4 (06:51→12:33)
[2018-06-08 06:59] LABS: ALBUMIN 2.8 g/dl (3.4-5.0); ALK PHOS 104 U/L (45-117); ANION GAP 3 MMOL/L (8-16); BILIRUBIN,TOTAL 0.7 mg/dL (0.2-1); BLOOD UREA NITROGEN 15 mg/dL (7-18); CALCIUM 8.6 mg/dL (8.5-10.1); CHLORIDE 101 mmol/L (98-107); CO2 34 mmol/L (21-32); GLUCOSE,RANDOM 184 mg/dL (74-106); POTASSIUM 3.5 mmol/L (3.5-5.1); SGOT/AST 21 U/L (15-37); SGPT/ALT 17 U/L (13-61); SODIUM 138 mmol/L (136-145); TOT PROT 6.1 g/dl (6.4-8.2)
[2018-06-08] MEDS ORDERED: PT OWN MED DRAWER 7, Y5N ONE ×2 (08:28→19:55)
[2018-06-08] MEDS: LIPASE/PROTEASE/AMYLASE 36,000 UNIT CAPSULE PO SCH ×3 (08:50→17:16)
[2018-06-08] MEDS: ALBUMIN HUMAN 25% 12.5 GM/50 ML VIAL IVPB SCH ×2 (08:51→09:54)
[2018-06-08] MEDS: DIVALPROEX SODIUM 250 MG TABLET E.C. PO SCH ×3 (08:52→21:32)
[2018-06-08] MEDS: PANTOPRAZOLE 40 MG TABLET (FP) PO SCH ×2 (08:53→09:55)
[2018-06-08] MEDS: FERROUS SO4 325 MG TABLET (FP) PO SCH ×2 (08:53→09:54)
[2018-06-08] MEDS: traMADol HCL 50 MG TABLET PO SCH ×2 (08:53→09:54)
[2018-06-08] MEDS: ASPIRIN 81 MG CHEWABLE TABLETS PO SCH ×2 (08:54→09:54)
[2018-06-08] MEDS: DONEPEZIL HCL 10 MG TABLET (FP) PO SCH ×2 (08:54→09:54)
[2018-06-08] MEDS: NIFEdipine E.R 60 MG TABLET (UD) PO SCH ×2 (08:55→09:54)
[2018-06-08] MEDS: PRAMIPEXOLE DIHYDROCHLORIDE 1 MG TABLET PO SCH ×2 (08:56→09:54)
[2018-06-08] MEDS: POLYETHYLENE GLYCOL 3350 119 GM BTL PO SCH ×2 (08:56→09:54)
--- NOTE | 2018-06-08 11:23 | PN ---
Progress Note, Physician Chief Complaint: SOB Pleural effusion Fluid overload CKD History of Present Illness: NAD Edema and breathing improving Feels better but weak - Current Medication List Current Medications: Active Medications Acetaminophen (Tylenol -) 650 mg PO Q4H PRN PRN Reason: PAIN LEVEL 1-5 Last Admin: 06/03/18 14:27 Dose: 650 mg Albumin Human (Albumin Human 25%) 12.5 gm IVPB BID [facility] Stop: 06/08/18 22:01 Last Admin: 06/08/18 09:54 Dose: Not Given Aspirin (Asa -) 81 mg PO DAILY [facility] Last Admin: 06/08/18 09:54 Dose: Not Given Atorvastatin Calcium (Lipitor -) 10 mg PO HS [facility] Last Admin: 06/07/18 21:38 Dose: 10 mg Bupropion HCl (Wellbutrin Xl -) 150 mg PO DAILY [facility] Last Admin: 06/08/18 09:55 Dose: Not Given Divalproex Sodium (Depakote -) 250 mg PO BID [facility] Last Admin: 06/08/18 09:54 Dose: Not Given Donepezil HCl (Aricept -) 10 mg PO DAILY [facility] Last Admin: 06/08/18 09:54 Dose: Not Given Ferrous Sulfate (Feosol -) 325 mg PO DAILY [facility] Last Admin: 06/08/18 09:54 Dose: Not Given Furosemide (Lasix Injection -) 40 mg IVPUSH BIDLASIX [facility] Last Admin: 06/08/18 06:50 Dose: 40 mg Heparin Sodium (Porcine) (Heparin -) 5,000 unit SQ BID [facility] Hydralazine HCl (Apresoline -) 50 mg PO TID [facility] Last Admin: 06/08/18 06:50 Dose: 50 mg Insulin Aspart (Novolog Vial Sliding Scale -) 1 vial SQ TIDAC [facility]; Protocol Last Admin: 06/08/18 06:49 Dose: Not Given Metoclopramide HCl (Reglan -) 10 mg PO TIDAC [facility] Nifedipine (Procardia Xl -) 60 mg PO DAILY [facility] Last Admin: 06/08/18 09:54 Dose: Not Given Pancrelipase (Creon Dr 36,000 Units Capsule) 1 cap PO TIDCM [facility] Last Admin: 06/08/18 08:50 Dose: 1 cap Pantoprazole Sodium (Protonix -) 40 mg PO DAILY [facility] Last Admin: 06/08/18 09:55 Dose: Not Given Polyethylene Glycol (Miralax (For Daily Use) -) 17 gm PO DAILY [facility] Last Admin: 06/08/18 09:54 Dose: Not Given Pramipexole Dihydrochloride (Mirapex -) 1 mg PO DAILY [facility] Last Admin: 06/08/18 09:54 Dose: Not Given - Objective Vital Signs: Vital Signs Temperature 98.1 F 06/08/18 06:00 Pulse Rate 82 06/08/18 06:00 Respiratory Rate 20 06/08/18 06:00 Blood Pressure 156/83 06/08/18 06:00 O2 Sat by Pulse Oximetry (%) 97 06/07/18 21:00 Constitutional: Yes: Well Nourished, No Distress, Calm Cardiovascular: Yes: Regular Rate and Rhythm Respiratory: Yes: Regular Gastrointestinal: Yes: Normal Bowel Sounds, Soft Genitourinary: Yes: WNL Musculoskeletal: Yes: Muscle Weakness Extremities: Yes: WNL Edema: Yes Edema: LLE: 1+, RLE: 1+ Peripheral Pulses WNL: Yes Neurological: Yes: Alert, Oriented Psychiatric: Yes: Alert, Oriented Labs: CBC, BMP 06/08/18 06:00 06/08/18 06:00 INR, PTT INR 1.07 (0.83-1.09) 06/02/18 08:05 Problem List - Problems (1) JASPER (acute kidney injury) Assessment/Plan: -resolved -monitor trend Code(s): N17.9 - ACUTE KIDNEY FAILURE, UNSPECIFIED (2) Acute on chronic diastolic (congestive) heart failure Assessment/Plan: -Seen by Cardiology -On furosemide -Continue Nifedipine+ metoprolol -tele monitoring Code(s): I50.33 - ACUTE ON CHRONIC DIASTOLIC (CONGESTIVE) HEART FAILURE (3) Edema Assessment/Plan: -Seen by Cardiology -On furosemide BID-change to PO -Continue Nifedipine+ metoprolol -low sodium diabetic diet -daily weights -Received Albumin IV yesterday Code(s): R60.9 - EDEMA, UNSPECIFIED Qualifiers: Edema type: unspecified Qualified Code(s): R60.9 - Edema, unspecified (4) HTN (hypertension) Assessment/Plan: -Seen by Cardiology -On furosemide -Continue Nifedipine+ metoprolol -monitor trend Code(s): I10 - ESSENTIAL (PRIMARY) HYPERTENSION (5) Hyponatremia Assessment/Plan: -stable Code(s): E87.1 - HYPO-OSMOLALITY AND HYPONATREMIA (6) Pleural effusion Assessment/Plan: -repeat CXR shows slight improvement Code(s): J90 - PLEURAL EFFUSION, NOT ELSEWHERE CLASSIFIED (7) SOB (shortness of breath) Assessment/Plan: -much improved -Nasal O2 PRN -Pulmonary on board -bronchodilators -Repeat CXR shows improvement Code(s): R06.02 - SHORTNESS OF BREATH (8) Diabetes Assessment/Plan: -BGM AC HS -low sodium diabetic diet -Insulin: Novolog+ levemir Code(s): E11.9 - TYPE 2 DIABETES MELLITUS WITHOUT COMPLICATIONS Qualifiers: Diabetes mellitus type: type 2 Assessment/Plan see problem list Physical therapy
[2018-06-08] MEDS ORDERED: POTASSIUM CHLORIDE TABS 20 MEQ TABLET.ER (FP) PO ONE (11:59)
--- NOTE | 2018-06-08 11:59 | PN ---
Progress Note, Physician History of Present Illness: Pt seen and examined at bedside. She feels that her lower ext edema is improving. She denies shortness of breath. - Current Medication List Current Medications: Active Medications Acetaminophen (Tylenol -) 650 mg PO Q4H PRN PRN Reason: PAIN LEVEL 1-5 Last Admin: 06/03/18 14:27 Dose: 650 mg Albumin Human (Albumin Human 25%) 12.5 gm IVPB BID [facility] Stop: 06/08/18 22:01 Last Admin: 06/08/18 09:54 Dose: Not Given Aspirin (Asa -) 81 mg PO DAILY [facility] Last Admin: 06/08/18 09:54 Dose: Not Given Atorvastatin Calcium (Lipitor -) 10 mg PO HS [facility] Last Admin: 06/07/18 21:38 Dose: 10 mg Bupropion HCl (Wellbutrin Xl -) 150 mg PO DAILY [facility] Last Admin: 06/08/18 09:55 Dose: Not Given Divalproex Sodium (Depakote -) 250 mg PO BID [facility] Last Admin: 06/08/18 09:54 Dose: Not Given Donepezil HCl (Aricept -) 10 mg PO DAILY [facility] Last Admin: 06/08/18 09:54 Dose: Not Given Ferrous Sulfate (Feosol -) 325 mg PO DAILY [facility] Last Admin: 06/08/18 09:54 Dose: Not Given Furosemide (Lasix Injection -) 40 mg IVPUSH BIDLASIX [facility] Last Admin: 06/08/18 06:50 Dose: 40 mg Heparin Sodium (Porcine) (Heparin -) 5,000 unit SQ BID [facility] Hydralazine HCl (Apresoline -) 50 mg PO TID [facility] Last Admin: 06/08/18 06:50 Dose: 50 mg Insulin Aspart (Novolog Vial Sliding Scale -) 1 vial SQ TIDAC [facility]; Protocol Last Admin: 06/08/18 06:49 Dose: Not Given Metoclopramide HCl (Reglan -) 10 mg PO TIDAC [facility] Nifedipine (Procardia Xl -) 60 mg PO DAILY [facility] Last Admin: 06/08/18 09:54 Dose: Not Given Pancrelipase (Creon Dr 36,000 Units Capsule) 1 cap PO TIDCM [facility] Last Admin: 06/08/18 08:50 Dose: 1 cap Pantoprazole Sodium (Protonix -) 40 mg PO DAILY [facility] Last Admin: 06/08/18 09:55 Dose: Not Given Polyethylene Glycol (Miralax (For Daily Use) -) 17 gm PO DAILY [facility] Last Admin: 06/08/18 09:54 Dose: Not Given Pramipexole Dihydrochloride (Mirapex -) 1 mg PO DAILY [facility] Last Admin: 06/08/18 09:54 Dose: Not Given - Objective Vital Signs: Vital Signs Temperature 98.1 F 06/08/18 06:00 Pulse Rate 82 06/08/18 06:00 Respiratory Rate 20 06/08/18 06:00 Blood Pressure 156/83 06/08/18 06:00 O2 Sat by Pulse Oximetry (%) 97 06/07/18 21:00 Constitutional: Yes: Calm Eyes: Yes: Conjunctiva Clear HENT: Yes: Atraumatic Neck: Yes: Supple Cardiovascular: Yes: S1, S2 Respiratory: Yes: CTA Bilaterally, On Nasal O2 Gastrointestinal: Yes: Soft Genitourinary: Yes: WNL Edema: Yes Edema: LLE: 1+, RLE: 1+ Neurological: Yes: Oriented Psychiatric: Yes: Oriented Labs: CBC, BMP 06/08/18 06:00 06/08/18 06:00 INR, PTT INR 1.07 (0.83-1.09) 06/02/18 08:05 Problem List - Problems (1) CHF (congestive heart failure) Code(s): I50.9 - HEART FAILURE, UNSPECIFIED Qualifiers: Heart failure type: unspecified Heart failure chronicity: acute Qualified Code(s): I50.9 - Heart failure, unspecified (2) Edema Code(s): R60.9 - EDEMA, UNSPECIFIED Qualifiers: Edema type: unspecified Qualified Code(s): R60.9 - Edema, unspecified (3) SOB (shortness of breath) Code(s): R06.02 - SHORTNESS OF BREATH Assessment/Plan Current Medications Generic Name Dose Route Start Last Admin Trade Name Freq PRN Reason Stop Dose Admin Acetaminophen 650 mg 06/02/18 05:54 06/03/18 14:27 Tylenol - PO 650 mg Q4H PRN Administration PAIN LEVEL 1-5 Albumin Human 12.5 gm 06/07/18 10:00 06/08/18 09:54 Albumin Human 25% IVPB 06/08/18 22:01 Not Given BID [facility] Aspirin 81 mg 03/14/19 10:00 06/08/18 09:54 Asa - PO Not Given DAILY [facility] Atorvastatin Calcium 10 mg 06/02/18 22:00 06/07/18 21:38 Lipitor - PO 10 mg HS [facility] Administration Bupropion HCl 150 mg 06/02/18 10:00 06/08/18 09:55 Wellbutrin Xl - PO Not Given DAILY [facility] Divalproex Sodium 250 mg 06/02/18 10:00 06/08/18 09:54 Depakote - PO Not Given BID [facility] Donepezil HCl 10 mg 06/02/18 10:00 06/08/18 09:54 Aricept - PO Not Given DAILY [facility] Ferrous Sulfate 325 mg 06/02/18 10:00 06/08/18 09:54 Feosol - PO Not Given DAILY [facility] Furosemide 40 mg 06/07/18 14:00 06/08/18 06:50 Lasix Injection - IVPUSH 40 mg BIDLASIX [facility] Administration Heparin Sodium (Porcine) 5,000 unit 06/08/18 22:00 Heparin - SQ BID [facility] Hydralazine HCl 50 mg 06/02/18 06:00 06/08/18 06:50 Apresoline - PO 50 mg TID [facility] Administration Insulin Aspart 1 vial 06/05/18 17:00 06/08/18 06:49 Novolog Vial Sliding Scale - SQ Not Given TIDAC [facility] Protocol Metoclopramide HCl 10 mg 06/08/18 11:30 Reglan - PO TIDAC [facility] Nifedipine 60 mg 06/04/18 10:00 06/08/18 09:54 Procardia Xl - PO Not Given DAILY [facility] Pancrelipase 1 cap 06/02/18 08:00 06/08/18 08:[address] 36,000 Units Capsule PO 1 cap TIDCM [facility] Administration Pantoprazole Sodium 40 mg 06/02/18 10:00 06/08/18 09:55 Protonix - PO Not Given DAILY [facility] Polyethylene Glycol 17 gm 06/02/18 10:00 06/08/18 09:54 Miralax (For Daily Use) - PO Not Given DAILY [facility] Pramipexole Dihydrochloride 1 mg 06/02/18 10:00 06/08/18 09:54 Mirapex - PO Not Given DAILY [facility] Impression 1. hyponatremia 2. fluid overload 3. HLD 4. shortness of breath 5. HTN 6. DM 7. proteinuria Plan - follow up urine studies - cont lasix - renal function stabls - repeat labs in am - d/c albumin - sodium is improved Dr Yu
--- NOTE | 2018-06-08 12:16 | PN ---
Progress Note, Physician History of Present Illness: pulmonary alert,oob-chair,-resp distress - Current Medication List Current Medications: Active Medications Acetaminophen (Tylenol -) 650 mg PO Q4H PRN PRN Reason: PAIN LEVEL 1-5 Last Admin: 06/03/18 14:27 Dose: 650 mg Aspirin (Asa -) 81 mg PO DAILY [facility] Last Admin: 06/08/18 09:54 Dose: Not Given Atorvastatin Calcium (Lipitor -) 10 mg PO HS [facility] Last Admin: 06/07/18 21:38 Dose: 10 mg Bupropion HCl (Wellbutrin Xl -) 150 mg PO DAILY [facility] Last Admin: 06/08/18 09:55 Dose: Not Given Divalproex Sodium (Depakote -) 250 mg PO BID [facility] Last Admin: 06/08/18 09:54 Dose: Not Given Donepezil HCl (Aricept -) 10 mg PO DAILY [facility] Last Admin: 06/08/18 09:54 Dose: Not Given Ferrous Sulfate (Feosol -) 325 mg PO DAILY [facility] Last Admin: 06/08/18 09:54 Dose: Not Given Furosemide (Lasix Injection -) 40 mg IVPUSH BIDLASIX [facility] Last Admin: 06/08/18 06:50 Dose: 40 mg Heparin Sodium (Porcine) (Heparin -) 5,000 unit SQ BID [facility] Hydralazine HCl (Apresoline -) 50 mg PO TID [facility] Last Admin: 06/08/18 06:50 Dose: 50 mg Insulin Aspart (Novolog Vial Sliding Scale -) 1 vial SQ TIDAC [facility]; Protocol Last Admin: 06/08/18 12:07 Dose: 6 units Metoclopramide HCl (Reglan -) 10 mg PO TIDAC [facility] Nifedipine (Procardia Xl -) 60 mg PO DAILY [facility] Last Admin: 06/08/18 09:54 Dose: Not Given Pancrelipase (Creon Dr 36,000 Units Capsule) 1 cap PO TIDCM [facility] Last Admin: 06/08/18 08:50 Dose: 1 cap Pantoprazole Sodium (Protonix -) 40 mg PO DAILY [facility] Last Admin: 06/08/18 09:55 Dose: Not Given Polyethylene Glycol (Miralax (For Daily Use) -) 17 gm PO DAILY [facility] Last Admin: 06/08/18 09:54 Dose: Not Given Pramipexole Dihydrochloride (Mirapex -) 1 mg PO DAILY [facility] Last Admin: 06/08/18 09:54 Dose: Not Given - Objective Vital Signs: Vital Signs Temperature 98.1 F 06/08/18 06:00 Pulse Rate 82 06/08/18 06:00 Respiratory Rate 20 06/08/18 06:00 Blood Pressure 156/83 06/08/18 06:00 O2 Sat by Pulse Oximetry (%) 97 06/07/18 21:00 Constitutional: Yes: Well Nourished, Calm Eyes: Yes: WNL HENT: Yes: WNL Neck: Yes: WNL Cardiovascular: Yes: Regular Rate and Rhythm, S1, S2 Respiratory: Yes: Diminished Gastrointestinal: Yes: Normal Bowel Sounds, Soft Extremities: Yes: WNL Edema: Yes Edema: LLE: Trace, RLE: Trace Labs: CBC, BMP 06/08/18 06:00 06/08/18 06:00 INR, PTT Problem List - Problems (1) HTN (hypertension) Code(s): I10 - ESSENTIAL (PRIMARY) HYPERTENSION (2) Hyponatremia Code(s): E87.1 - HYPO-OSMOLALITY AND HYPONATREMIA (3) SOB (shortness of breath) Code(s): R06.02 - SHORTNESS OF BREATH (4) Diabetes mellitus with neuropathy Code(s): E11.40 - TYPE 2 DIABETES MELLITUS WITH DIABETIC NEUROPATHY, UNSP (5) HLD (hyperlipidemia) Code(s): E78.5 - HYPERLIPIDEMIA, UNSPECIFIED (6) Parkinson disease Code(s): G20 - PARKINSON'S DISEASE Assessment/Plan Problem List - Problems (1) Acute on chronic diastolic (congestive) heart failure Code(s): I50.33 - ACUTE ON CHRONIC DIASTOLIC (CONGESTIVE) HEART FAILURE (2) Pleural effusion Code(s): J90 - PLEURAL EFFUSION, NOT ELSEWHERE CLASSIFIED Assessment/Plan Acute on Chronic Diastolic Heart Failure clinically improving Volume Overload Hyponatremia corrected Pleural Effusions from above HTN DM Hyperlipidemia Parkinsons - Lasix - monitor urine output, creatinine - daily weights - O2 to keep SpO2 >90% - defer thoracentesis as clinical response to Lasix - DVT prophylaxis DR CAMPA
[2018-06-08] MEDS: METOCLOPRAMIDE HCL 10 MG TABLET (FP) PO SCH ×2 (12:18→17:15)
--- NOTE | 2018-06-08 13:12 | DS ---
Physical Examination Vital Signs: Vital Signs Temperature 98.2 F 06/08/18 10:00 Pulse Rate 83 06/08/18 10:00 Respiratory Rate 20 06/08/18 10:00 Blood Pressure 188/84 H 06/08/18 10:00 O2 Sat by Pulse Oximetry (%) 96 06/08/18 10:00 Findings/Remarks: Pt. is a 78 y.o. Ethiopian-speaking F presenting under request from PMD for fluid volume overload. Pt. is a poor historian. Per Pt.s daughter Pt. has been having worsening LE edema over the last 2 weeks and sudden onset LUE edema. Pt. recently(05/25/18) had Lasix increased to 40 mg with minimal effect. Daughter stated that her mother is now unable to walk because of the pain from the swelling in the lower extremities. Pt. states she does not remember falling however the daughter noted the presence of new bruises on abdomen and on arm. Pt. endorses dyspnea on exertion, increased dyspnea when lying flat, pleuritic chest pain, and decrease appetite. Pt. denies any fevers, changes in bowel or urinary habits, headaches, dizziness, lightheadedness, nausea or vomiting. Constitutional: Yes: Well Nourished, No Distress, Calm Cardiovascular: Yes: Regular Rate and Rhythm Respiratory: Yes: Regular Gastrointestinal: Yes: Normal Bowel Sounds, Soft Musculoskeletal: Yes: Muscle Weakness Edema: Yes Edema: LLE: 1+, RLE: 1+ Peripheral Pulses WNL: Yes Neurological: Yes: Alert, Oriented Psychiatric: Yes: Alert, Oriented Labs: CBC, BMP 06/08/18 06:00 06/08/18 06:00 Discharge Summary Reason For Visit: ACUTE KIDNEY INJURY/CONGESTIVE HEART FAILURE Current Active Problems JASPER (acute kidney injury) (Acute) Acute on chronic diastolic (congestive) heart failure (Acute) CHF (congestive heart failure) (Acute) Edema (Acute) HTN (hypertension) (Acute) Hyponatremia (Acute) Pleural effusion (Acute) SOB (shortness of breath) (Acute) Hospital Course: Laboratory Last Values WBC 6.3 K/mm3 (4.0-10.0) 06/08/18 06:00 RBC 3.17 M/mm3 (3.60-5.2) L 06/08/18 06:00 Hgb 8.6 GM/dL (10.7-15.3) L 06/08/18 06:00 Hct 25.2 % (32.4-45.2) L 06/08/18 06:00 MCV 79.4 fl (80-96) L 06/08/18 06:00 MCH 27.0 pg (25.7-33.7) 06/08/18 06:00 MCHC 33.9 g/dl (32.0-36.0) 06/08/18 06:00 RDW 16.3 % (11.6-15.6) H 06/08/18 06:00 Plt Count 352 K/MM3 (134-434) 06/08/18 06:00 MPV 7.1 fl (7.5-11.1) L 06/08/18 06:00 Absolute Neuts (auto) 3.8 K/mm3 (1.5-8.0) 06/08/18 06:00 Neutrophils % 59.8 % (42.8-82.8) 06/08/18 06:00 Lymphocytes % 20.9 % (8-40) 06/08/18 06:00 Monocytes % 15.6 % (3.8-10.2) H 06/08/18 06:00 Eosinophils % 2.9 % (0-4.5) 06/08/18 06:00 Basophils % 0.8 % (0-2.0) 06/08/18 06:00 Nucleated RBC % 0 % (0-0) 06/08/18 06:00 PT with INR 12.60 SEC (9.7-13.0) 06/02/18 08:05 INR 1.07 (0.83-1.09) 06/02/18 08:05 Anticoagulation Therapy No Result Required. 06/08/18 01:16 Puncture Site Right radial 06/08/18 01:16 ABG pH 7.46 (7.35-7.45) H 06/08/18 01:16 ABG pCO2 at Pt Temp 47.4 mmHg (35-45) H 06/08/18 01:16 ABG pO2 at Pt Temp 47.1 mmHg (80-105) L 06/08/18 01:16 ABG HCO3 32.9 mmol/L (22-27) H 06/08/18 01:16 ABG O2 Sat (Measured) 82.7 % (95-98) L 06/08/18 01:16 ABG O2 Content 9.3 % vol (15-22) L* 06/08/18 01:16 ABG Base Excess 8.4 meq/l (-2-2) H 06/08/18 01:16 Jose Test Positive 06/08/18 01:16 O2 Delivery Device Nasal 06/08/18 01:16 Oxygen Flow Rate 2l 06/08/18 01:16 Vent Mode No Result Required. 06/08/18 01:16 Vent Rate No Result Required. 06/08/18 01:16 Mechanical Rate No Result Required. 06/08/18 01:16 Pressure Support Vent No Result Required. 06/08/18 01:16 Sodium 138 mmol/L (136-145) 06/08/18 06:00 Potassium 3.5 mmol/L (3.5-5.1) 06/08/18 06:00 Chloride 101 mmol/L (98-107) 06/08/18 06:00 Carbon Dioxide 34 mmol/L (21-32) H 06/08/18 06:00 Anion Gap 3 MMOL/L (8-16) L 06/08/18 06:00 BUN 15 mg/dL (7-18) 06/08/18 06:00 Creatinine 1.0 mg/dL (0.55-1.3) 06/08/18 06:00 Creat Clearance w eGFR 53.91 (>60) 06/08/18 06:00 POC Glucometer 304 UNITS (80-120) 06/08/18 11:51 Random Glucose 184 mg/dL (74-106) H 06/08/18 06:00 Calcium 8.6 mg/dL (8.5-10.1) 06/08/18 06:00 Phosphorus 4.0 mg/dL (2.5-4.9) 06/02/18 06:17 Magnesium 2.1 mg/dL (1.8-2.4) 06/02/18 06:17 Iron 24 ug/dL (27-139) L 06/03/18 05:30 TIBC 311 ug/dL (250-450) 06/03/18 05:30 Iron Saturation 8 % (15-55) L 06/03/18 05:30 Ferritin 37.7 ng/ml (8-388) 06/03/18 05:30 Total Bilirubin 0.7 mg/dL (0.2-1) 06/08/18 06:00 AST 21 U/L (15-37) 06/08/18 06:00 ALT 17 U/L (13-61) 06/08/18 06:00 Alkaline Phosphatase 104 U/L (45-117) 06/08/18 06:00 Creatine Kinase 76 U/L (26-192) 06/01/18 17:41 Troponin I < 0.02 ng/ml (0.00-0.05) 06/01/18 17:41 B-Natriuretic Peptide 2854.9 pg/ml (5-450) H 06/02/18 06:17 Total Protein 6.1 g/dl (6.4-8.2) L 06/08/18 06:00 Albumin 2.8 g/dl (3.4-5.0) L 06/08/18 06:00 Serum Folate 17 ng/mL (3.1-17.5) 06/03/18 05:30 Urine Protein 126 mg/dl (5.0-11.9) H 06/03/18 09:15 Urine Creatinine 52.0 mg/dL (20-275) 06/03/18 09:15 Stool Occult Blood Negative (NEGATIVE) 06/04/18 16:10 Vital Signs Temp 98.2 F 06/08/18 10:00 Pulse 83 06/08/18 10:00 Resp 20 06/08/18 10:00 BP 188/84 H 06/08/18 10:00 Pulse Ox 96 06/08/18 10:00 Intake & Output 06/07/18 06/08/18 06/08/18 23:59 11:59 23:59 Intake Total 200 240 Balance 200 240 Weight 57.878 kg Intake: Oral 200 240 Other: Voiding Method Diaper Diaper # Unmeasured Voids Void 1 2 Bowel Movement No Body Mass Index (BMI) 24.8 Weight Measurement Method Standing Scale Condition: Stable - Instructions Referrals: Ruben Medrano MD [Staff Physician] - Lenka Yu MD [Staff Physician] - Disposition: [facility] - Home Medications Comprehensive Discharge Medication List: Ambulatory Orders Aspirin [ASA -] 81 mg PO DAILY 09/09/15 Donepezil HCl 10 mg PO DAILY 02/01/18 Bupropion HCl [Wellbutrin Xl -] 150 mg PO DAILY #30 tab.sr.24h 02/09/18 Nifedipine ER [Procardia XL -] 60 mg PO DAILY #30 tab.er.24 02/09/18 Pantoprazole Sodium [Protonix -] 40 mg PO DAILY #30 tablet.ec 02/09/18 Lipase/Protease/Amylase [Elaine Sweeney 36,000 Units Capsule] 1 cap PO TIDCM #90 capsule. 04/24/18 Divalproex [Depakote -] 250 mg PO BID #30 tablet.ec MDD 2 05/09/18 Acetaminophen [Tylenol] 650 mg PO Q4H PRN 06/01/18 Cranberry Fruit Extract [Cranberry Extract] 1 gm PO DAILY 06/01/18 Ferrous Sulfate 325 mg PO DAILY 06/01/18 Furosemide [Lasix] 40 mg PO ASDIR 06/01/18 Insulin Aspart [Novolog] 0 unit SQ [facility]IR 06/01/18 Insulin Glargine,Hum.rec.anlog [Basaglar Kwikpen U-100] 10 unit SQ HS 06/01/18 Polyethylene Glycol 3350 [Miralax (For Daily Use) -] 17 gm PO DAILY 06/01/18 Pramipexole Di-HCl [Mirapex] 1 mg PO DAILY 06/01/18 Simvastatin 20 mg PO DAILY 06/01/18 Tramadol HCl 50 mg PO BID 06/01/18 hydrALAZINE HCL [Apresoline -] 50 mg PO TID 06/01/18
[2018-06-08] MEDS: FUROSEMIDE 40 MG TABLET (FP) PO SCH (14:51)
[2018-06-08] MEDS: ATORVASTATIN CA 10 MG TABLET (FP) PO SCH (21:32)
[2018-06-09] MEDS: hydrALAZINE HCL 50 MG TABLET (FP) PO SCH ×3 (03:43→13:30)
[2018-06-09] MEDS: FUROSEMIDE 40 MG TABLET (FP) PO SCH ×2 (05:36→13:30)
[2018-06-09] MEDS: METOCLOPRAMIDE HCL 10 MG TABLET (FP) PO SCH ×3 (05:59→16:27)
[2018-06-09] MEDS: INSULIN SLIDING SCALE (NOVOLOG) 1 VIAL SQ SCH ×3 (05:59→16:27)
[2018-06-09 08:17] LABS: BASO % 0.7 % (0-2.0); EOS % 4.1 % (0-4.5); HEMATOCRIT 23.9 % (32.4-45.2); HEMOGLOBIN 8.1 GM/dL (10.7-15.3); LYMPH % 15.2 % (8-40); MEAN CELL VOLUME 79.6 fl (80-96); MEAN PLT VOLUME 7.8 fl (7.5-11.1); MONO % 13.7 % (3.8-10.2); NEUT % 66.3 % (42.8-82.8); PLATELET COUNT 324 K/MM3 (134-434); RDW 16.2 % (11.6-15.6); WHITE BLOOD COUNT 5.5 K/mm3 (4.0-10.0)
[2018-06-09 08:42] LABS: ALBUMIN 2.6 g/dl (3.4-5.0); ALK PHOS 99 U/L (45-117); ANION GAP 5 MMOL/L (8-16); BILIRUBIN,TOTAL 0.2 mg/dL (0.2-1); BLOOD UREA NITROGEN 16 mg/dL (7-18); CALCIUM 8.3 mg/dL (8.5-10.1); CHLORIDE 99 mmol/L (98-107); CO2 34 mmol/L (21-32); CREATININE 1.2 mg/dL (0.55-1.3); GLUCOSE,RANDOM 152 mg/dL (74-106); POTASSIUM 4.1 mmol/L (3.5-5.1); SGOT/AST 14 U/L (15-37); SGPT/ALT 13 U/L (13-61); SODIUM 137 mmol/L (136-145); TOT PROT 5.6 g/dl (6.4-8.2)
[2018-06-09] MEDS: LIPASE/PROTEASE/AMYLASE 36,000 UNIT CAPSULE PO SCH ×2 (08:54→12:19)
[2018-06-09] MEDS ORDERED: PT OWN MED DRAWER 7, Y5N ONE ×2 (10:35→12:10)
[2018-06-09] MEDS: ASPIRIN 81 MG CHEWABLE TABLETS PO SCH (10:55)
[2018-06-09] MEDS: DONEPEZIL HCL 10 MG TABLET (FP) PO SCH (10:55)
[2018-06-09] MEDS: DIVALPROEX SODIUM 250 MG TABLET E.C. PO SCH (10:55)
[2018-06-09] MEDS: HEPARIN NA (PORCINE) 5,000 UNITS/ML 1ML VIAL SQ SCH (10:56)
[2018-06-09] MEDS: FERROUS SO4 325 MG TABLET (FP) PO SCH (10:56)
[2018-06-09] MEDS: POLYETHYLENE GLYCOL 3350 119 GM BTL PO SCH (10:56)
[2018-06-09] MEDS: PRAMIPEXOLE DIHYDROCHLORIDE 1 MG TABLET PO SCH (10:57)
[2018-06-09] MEDS: NIFEdipine E.R 60 MG TABLET (UD) PO SCH (10:57)
[2018-06-09] MEDS: PANTOPRAZOLE 40 MG TABLET (FP) PO SCH (10:58)
[2018-06-09] MEDS ORDERED: IRON SUCROSE INJECTION 300 MG in SODIUM CHLORIDE 235 ML IVPB ONE (11:02)
--- NOTE | 2018-06-09 11:08 | PN ---
Progress Note, Physician Chief Complaint: SOB Pleural effusion Fluid overload CKD History of Present Illness: NAD Edema and breathing improving Feels better OOB to chair with PT edema trace BLLE - Current Medication List Current Medications: Active Medications Acetaminophen (Tylenol -) 650 mg PO Q4H PRN PRN Reason: PAIN LEVEL 1-5 Last Admin: 06/03/18 14:27 Dose: 650 mg Aspirin (Asa -) 81 mg PO DAILY [facility] Last Admin: 06/09/18 10:55 Dose: 81 mg Atorvastatin Calcium (Lipitor -) 10 mg PO HS [facility] Last Admin: 06/08/18 21:32 Dose: 10 mg Bupropion HCl (Wellbutrin Xl -) 150 mg PO DAILY [facility] Last Admin: 06/09/18 10:58 Dose: 150 mg Divalproex Sodium (Depakote -) 250 mg PO BID [facility] Last Admin: 06/09/18 10:55 Dose: 250 mg Donepezil HCl (Aricept -) 10 mg PO DAILY [facility] Last Admin: 06/09/18 10:55 Dose: 10 mg Ferrous Sulfate (Feosol -) 325 mg PO BID [facility] Furosemide (Lasix -) 40 mg PO BID@0600,1400 [facility] Last Admin: 06/09/18 05:36 Dose: 40 mg Heparin Sodium (Porcine) (Heparin -) 5,000 unit SQ BID [facility] Last Admin: 06/09/18 10:56 Dose: 5,000 unit Hydralazine HCl (Apresoline -) 50 mg PO TID [facility] Last Admin: 06/09/18 05:35 Dose: Not Given Iron Sucrose 300 mg/ Sodium (Chloride) 250 mls @ 250 mls/hr IVPB ONCE ONE Stop: 06/09/18 12:01 Insulin Aspart (Novolog Vial Sliding Scale -) 1 vial SQ TIDAC [facility]; Protocol Last Admin: 06/09/18 05:59 Dose: Not Given Metoclopramide HCl (Reglan -) 10 mg PO TIDAC [facility] Last Admin: 06/09/18 10:58 Dose: 10 mg Nifedipine (Procardia Xl -) 60 mg PO DAILY [facility] Last Admin: 06/09/18 10:57 Dose: 60 mg Pancrelipase (Creon Dr 36,000 Units Capsule) 1 cap PO TIDCM [facility] Last Admin: 06/09/18 08:54 Dose: 1 cap Pantoprazole Sodium (Protonix -) 40 mg PO DAILY [facility] Last Admin: 06/09/18 10:58 Dose: 40 mg Polyethylene Glycol (Miralax (For Daily Use) -) 17 gm PO DAILY [facility] Last Admin: 06/09/18 10:56 Dose: 17 grams Pramipexole Dihydrochloride (Mirapex -) 1 mg PO DAILY [facility] Last Admin: 06/09/18 10:57 Dose: 1 mg - Objective Vital Signs: Vital Signs Temperature 98.7 F 06/09/18 05:00 Pulse Rate 76 06/09/18 05:00 Respiratory Rate 18 06/09/18 05:00 Blood Pressure 175/75 H 06/09/18 05:00 O2 Sat by Pulse Oximetry (%) 97 06/08/18 20:48 Constitutional: Yes: Well Nourished, No Distress, Calm Cardiovascular: Yes: Regular Rate and Rhythm Respiratory: Yes: Regular Gastrointestinal: Yes: Normal Bowel Sounds, Soft Genitourinary: Yes: WNL Musculoskeletal: Yes: Muscle Weakness Extremities: Yes: WNL Edema: Yes Edema: LLE: Trace, RLE: Trace Peripheral Pulses WNL: Yes Neurological: Yes: Alert, Oriented Psychiatric: Yes: Alert, Oriented Labs: CBC, BMP 06/09/18 07:15 06/09/18 07:15 INR, PTT INR 1.07 (0.83-1.09) 06/02/18 08:05 Problem List - Problems (1) JASPER (acute kidney injury) Assessment/Plan: -resolved -monitor trend Code(s): N17.9 - ACUTE KIDNEY FAILURE, UNSPECIFIED (2) Acute on chronic diastolic (congestive) heart failure Assessment/Plan: -Seen by Cardiology -On furosemide -Continue Nifedipine+ metoprolol -tele monitoring Code(s): I50.33 - ACUTE ON CHRONIC DIASTOLIC (CONGESTIVE) HEART FAILURE (3) Edema Assessment/Plan: -Seen by Cardiology -On furosemide 40 mg po BID -Continue Nifedipine+ metoprolol -low sodium diabetic diet -daily weights Code(s): R60.9 - EDEMA, UNSPECIFIED Qualifiers: Edema type: unspecified Qualified Code(s): R60.9 - Edema, unspecified (4) HTN (hypertension) Assessment/Plan: -Seen by Cardiology -On furosemide -Continue Nifedipine+ metoprolol -monitor trend Code(s): I10 - ESSENTIAL (PRIMARY) HYPERTENSION (5) Hyponatremia Assessment/Plan: -stable Code(s): E87.1 - HYPO-OSMOLALITY AND HYPONATREMIA (6) Pleural effusion Assessment/Plan: -repeat CXR shows slight improvement Code(s): J90 - PLEURAL EFFUSION, NOT ELSEWHERE CLASSIFIED (7) SOB (shortness of breath) Assessment/Plan: -much improved -Nasal O2 PRN -Pulmonary on board -bronchodilators -Repeat CXR shows improvement Code(s): R06.02 - SHORTNESS OF BREATH (8) Diabetes Assessment/Plan: -BGM AC HS -low sodium diabetic diet -Insulin: Novolog+ levemir Code(s): E11.9 - TYPE 2 DIABETES MELLITUS WITHOUT COMPLICATIONS Qualifiers: Diabetes mellitus type: type 2 Assessment/Plan see problem list Physical therapy left msg for daughter Linda to call back
--- NOTE | 2018-06-09 13:07 | PN ---
Progress Note (short form) - Note Progress Note: Breathing feels overall better. No CP . No acute events overnight. Intake & Output 06/06/18 06/07/18 06/08/18 06/09/18 23:59 23:59 23:59 23:59 Intake Total 195 200 830 Balance 195 200 830 Weight 127 lb 9.6 oz Last Vital Signs Temp Pulse Resp BP Pulse Ox 98.7 F 76 18 175/75 H 97 06/09/18 05:00 06/09/18 05:00 06/09/18 05:00 06/09/18 05:00 06/08/18 20:48 Active Medications Acetaminophen (Tylenol -) 650 mg PO Q4H PRN PRN Reason: PAIN LEVEL 1-5 Last Admin: 06/03/18 14:27 Dose: 650 mg Aspirin (Asa -) 81 mg PO DAILY [facility] Last Admin: 06/09/18 10:55 Dose: 81 mg Atorvastatin Calcium (Lipitor -) 10 mg PO HS [facility] Last Admin: 06/08/18 21:32 Dose: 10 mg Bupropion HCl (Wellbutrin Xl -) 150 mg PO DAILY [facility] Last Admin: 06/09/18 10:58 Dose: 150 mg Divalproex Sodium (Depakote -) 250 mg PO BID [facility] Last Admin: 06/09/18 10:55 Dose: 250 mg Donepezil HCl (Aricept -) 10 mg PO DAILY [facility] Last Admin: 06/09/18 10:55 Dose: 10 mg Ferrous Sulfate (Feosol -) 325 mg PO BIDWM [facility] Furosemide (Lasix -) 40 mg PO BID@0600,1400 [facility] Last Admin: 06/09/18 05:36 Dose: 40 mg Heparin Sodium (Porcine) (Heparin -) 5,000 unit SQ BID [facility] Last Admin: 06/09/18 10:56 Dose: 5,000 unit Hydralazine HCl (Apresoline -) 50 mg PO TID [facility] Last Admin: 06/09/18 05:35 Dose: Not Given Insulin Aspart (Novolog Vial Sliding Scale -) 1 vial SQ TIDAC [facility]; Protocol Last Admin: 06/09/18 11:59 Dose: 4 units Metoclopramide HCl (Reglan -) 10 mg PO TIDAC [facility] Last Admin: 06/09/18 10:58 Dose: 10 mg Nifedipine (Procardia Xl -) 60 mg PO DAILY [facility] Last Admin: 06/09/18 10:57 Dose: 60 mg Pancrelipase (Creon Dr 36,000 Units Capsule) 1 cap PO TIDCM [facility] Last Admin: 06/09/18 12:19 Dose: 1 cap Pantoprazole Sodium (Protonix -) 40 mg PO DAILY [facility] Last Admin: 06/09/18 10:58 Dose: 40 mg Polyethylene Glycol (Miralax (For Daily Use) -) 17 gm PO DAILY [facility] Last Admin: 06/09/18 10:56 Dose: Not Given Pramipexole Dihydrochloride (Mirapex -) 1 mg PO DAILY [facility] Last Admin: 06/09/18 10:57 Dose: 1 mg Constitutional: Yes: NAD Eyes: Yes: Conjunctiva Clear, EOM Intact HENT: Yes: Atraumatic, Normocephalic Neck: Yes: Supple, Trachea Midline Cardiovascular: Yes: Regular Rate and Rhythm Respiratory: Yes: basilar rales/rhonchi ...Clubbing: No Gastrointestinal: Yes: Normal Bowel Sounds, Soft. No: Tenderness Edema: Yes Neurological: Yes: Alert Labs: Laboratory Results - last 24 hr 06/08/18 06/08/18 06/09/18 17:02 21:33 05:40 WBC RBC Hgb Hct MCV MCH MCHC RDW Plt Count MPV Absolute Neuts (auto) Neutrophils % Lymphocytes % Monocytes % Eosinophils % Basophils % Nucleated RBC % Sodium Potassium Chloride Carbon Dioxide Anion Gap BUN Creatinine Creat Clearance w eGFR POC Glucometer 86 177 143 Random Glucose Calcium Total Bilirubin AST ALT Alkaline Phosphatase Total Protein Albumin 06/09/18 06/09/18 06/09/18 07:15 07:15 11:58 WBC 5.5 RBC 3.00 L Hgb 8.1 L Hct 23.9 L MCV 79.6 L MCH 27.0 MCHC 34.0 RDW 16.2 H Plt Count 324 MPV 7.8 Absolute Neuts (auto) 3.7 Neutrophils % 66.3 Lymphocytes % 15.2 D Monocytes % 13.7 H Eosinophils % 4.1 Basophils % 0.7 Nucleated RBC % 0 Sodium 137 Potassium 4.1 Chloride 99 Carbon Dioxide 34 H Anion Gap 5 L BUN 16 Creatinine 1.2 Creat Clearance w eGFR 43.68 POC Glucometer 279 Random Glucose 152 H Calcium 8.3 L Total Bilirubin 0.2 AST 14 L ALT 13 Alkaline Phosphatase 99 Total Protein 5.6 L Albumin 2.6 L Problem List - Problems (1) Acute on chronic diastolic (congestive) heart failure Code(s): I50.33 - ACUTE ON CHRONIC DIASTOLIC (CONGESTIVE) HEART FAILURE (2) Pleural effusion Code(s): J90 - PLEURAL EFFUSION, NOT ELSEWHERE CLASSIFIED Assessment/Plan Acute on Chronic Diastolic Heart Failure Volume Overload Hyponatremia Pleural Effusions from above HTN DM Hyperlipidemia Parkinsons - Lasix - monitor urine output, creatinine - daily weights - O2 to keep SpO2 >90% - defer thoracentesis as clinical response to Lasix - DVT prophylaxis - No Pulmonary contraindication for D/C Dr Zee
--- NOTE | 2018-06-09 14:11 | PN ---
Progress Note, Physician History of Present Illness: Pt seen and examined at bedside. She is awake and alert. She denies shortness of breath. - Current Medication List Current Medications: Active Medications Acetaminophen (Tylenol -) 650 mg PO Q4H PRN PRN Reason: PAIN LEVEL 1-5 Last Admin: 06/03/18 14:27 Dose: 650 mg Aspirin (Asa -) 81 mg PO DAILY [facility] Last Admin: 06/09/18 10:55 Dose: 81 mg Atorvastatin Calcium (Lipitor -) 10 mg PO HS [facility] Last Admin: 06/08/18 21:32 Dose: 10 mg Bupropion HCl (Wellbutrin Xl -) 150 mg PO DAILY [facility] Last Admin: 06/09/18 10:58 Dose: 150 mg Divalproex Sodium (Depakote -) 250 mg PO BID [facility] Last Admin: 06/09/18 10:55 Dose: 250 mg Donepezil HCl (Aricept -) 10 mg PO DAILY [facility] Last Admin: 06/09/18 10:55 Dose: 10 mg Ferrous Sulfate (Feosol -) 325 mg PO BIDWM [facility] Furosemide (Lasix -) 40 mg PO BID@0600,1400 [facility] Last Admin: 06/09/18 13:30 Dose: 40 mg Heparin Sodium (Porcine) (Heparin -) 5,000 unit SQ BID [facility] Last Admin: 06/09/18 10:56 Dose: 5,000 unit Hydralazine HCl (Apresoline -) 50 mg PO TID [facility] Last Admin: 06/09/18 13:30 Dose: 50 mg Insulin Aspart (Novolog Vial Sliding Scale -) 1 vial SQ TIDAC [facility]; Protocol Last Admin: 06/09/18 11:59 Dose: 4 units Metoclopramide HCl (Reglan -) 10 mg PO TIDAC [facility] Last Admin: 06/09/18 10:58 Dose: 10 mg Nifedipine (Procardia Xl -) 60 mg PO DAILY [facility] Last Admin: 06/09/18 10:57 Dose: 60 mg Pancrelipase (Creon Dr 36,000 Units Capsule) 1 cap PO TIDCM [facility] Last Admin: 06/09/18 12:19 Dose: 1 cap Pantoprazole Sodium (Protonix -) 40 mg PO DAILY [facility] Last Admin: 06/09/18 10:58 Dose: 40 mg Polyethylene Glycol (Miralax (For Daily Use) -) 17 gm PO DAILY [facility] Last Admin: 06/09/18 10:56 Dose: Not Given Pramipexole Dihydrochloride (Mirapex -) 1 mg PO DAILY [facility] Last Admin: 06/09/18 10:57 Dose: 1 mg - Objective Vital Signs: Vital Signs Temperature 98.7 F 06/09/18 05:00 Pulse Rate 76 06/09/18 05:00 Respiratory Rate 18 06/09/18 05:00 Blood Pressure 175/75 H 06/09/18 05:00 O2 Sat by Pulse Oximetry (%) 97 06/08/18 20:48 Constitutional: Yes: Calm Eyes: Yes: Conjunctiva Clear HENT: Yes: Atraumatic Neck: Yes: Supple Cardiovascular: Yes: S1, S2 Respiratory: Yes: CTA Bilaterally, On Nasal O2 Gastrointestinal: Yes: Soft Musculoskeletal: Yes: WNL Edema: Yes Edema: LLE: 1+, RLE: 1+ Neurological: Yes: Oriented Psychiatric: Yes: Oriented Labs: CBC, BMP 06/09/18 07:15 06/09/18 07:15 INR, PTT INR 1.07 (0.83-1.09) 06/02/18 08:05 Problem List - Problems (1) CHF (congestive heart failure) Code(s): I50.9 - HEART FAILURE, UNSPECIFIED Qualifiers: Heart failure type: unspecified Heart failure chronicity: acute Qualified Code(s): I50.9 - Heart failure, unspecified (2) Edema Code(s): R60.9 - EDEMA, UNSPECIFIED Qualifiers: Edema type: unspecified Qualified Code(s): R60.9 - Edema, unspecified (3) SOB (shortness of breath) Code(s): R06.02 - SHORTNESS OF BREATH Assessment/Plan Current Medications Generic Name Dose Route Start Last Admin Trade Name Freq PRN Reason Stop Dose Admin Acetaminophen 650 mg 06/02/18 05:54 06/03/18 14:27 Tylenol - PO 650 mg Q4H PRN Administration PAIN LEVEL 1-5 Aspirin 81 mg 06/02/18 10:00 06/09/18 10:55 Asa - PO 81 mg DAILY [facility] Administration Atorvastatin Calcium 10 mg 06/02/18 22:00 06/08/18 21:32 Lipitor - PO 10 mg HS [facility] Administration Bupropion HCl 150 mg 06/02/18 10:00 06/09/18 10:58 Wellbutrin Xl - PO 150 mg DAILY [facility] Administration Divalproex Sodium 250 mg 06/02/18 10:00 06/09/18 10:55 Depakote - PO 250 mg BID [facility] Administration Donepezil HCl 10 mg 06/02/18 10:00 06/09/18 10:55 Aricept - PO 10 mg DAILY [facility] Administration Ferrous Sulfate 325 mg 06/09/18 17:30 Feosol - PO BIDWM [facility] Furosemide 40 mg 06/08/18 14:00 06/09/18 13:30 Lasix - PO 40 mg BID@0600,1400 [facility] Administration Heparin Sodium (Porcine) 5,000 unit 06/08/18 22:00 06/09/18 10:56 Heparin - SQ 5,000 unit BID [facility] Administration Hydralazine HCl 50 mg 06/02/18 06:00 06/09/18 13:30 Apresoline - PO 50 mg TID [facility] Administration Insulin Aspart 1 vial 06/05/18 17:00 06/09/18 11:59 Novolog Vial Sliding Scale - SQ 4 units TIDAC [facility] Administration Protocol Metoclopramide HCl 10 mg 06/08/18 11:30 06/09/18 10:58 Reglan - PO 10 mg TIDAC [facility] Administration Nifedipine 60 mg 06/04/18 10:00 06/09/18 10:57 Procardia Xl - PO 60 mg DAILY [facility] Administration Pancrelipase 1 cap 06/02/18 08:00 06/09/18 12:19 Elaine Sweeney 36,000 Units Capsule PO 1 cap TIDCM [facility] Administration Pantoprazole Sodium 40 mg 06/02/18 10:00 06/09/18 10:58 Protonix - PO 40 mg DAILY [facility] Administration Polyethylene Glycol 17 gm 06/02/18 10:00 06/09/18 10:56 Miralax (For Daily Use) - PO Not Given DAILY [facility] Pramipexole Dihydrochloride 1 mg 06/02/18 10:00 06/09/18 10:57 Mirapex - PO 1 mg DAILY [facility] Administration Impression 1. hyponatremia 2. fluid overload 3. HLD 4. shortness of breath 5. HTN 6. DM 7. proteinuria Plan - cont lasix - monitor renal function - can see in office after discharge - pt did not give urine - sodium is improved Dr Yu
[2018-06-09 14:28] VITALS: BP 145/64; PULSE 81; TEMP 97.9
[2018-06-09] MEDS ORDERED: FERROUS SO4 325 MG TABLET (FP) PO SCH (17:30)
== END 2018-06-09 18:40 | DRG 682 ==
LOC: JER 16:41 → JERBED 21:43 → INTOOBSV 21:43 → J4S 06-02 02:18 → OBSVTOIN 06-03 10:11
PROVIDERS: ADMIT Family Medicine; ATTEND Family Medicine
DX: N17.9 Acute kidney failure, unspecified (principal); I50.33 Acute on chronic diastolic (congestive) heart failure; E87.1 Hypo-osmolality and hyponatremia; J98.11 Atelectasis; E46 Unspecified protein-calorie malnutrition; I11.0 Hypertensive heart disease with heart failure; E11.9 Type 2 diabetes mellitus without complications; E78.5 Hyperlipidemia, unspecified; I44.69 Other fascicular block; K58.9 Irritable bowel syndrome, unspecified; K57.90 Diverticulosis of intestine, part unspecified, without perforation or abscess without bleeding; N84.0 Polyp of corpus uteri; F03.90 Unspecified dementia, unspecified severity, without behavioral disturbance, psychotic disturbance, mood disturbance, and anxiety; G20 Parkinson's disease; E88.09 Other disorders of plasma-protein metabolism, not elsewhere classified; D64.9 Anemia, unspecified; E87.70 Fluid overload, unspecified; F41.9 Anxiety disorder, unspecified; E11.42 Type 2 diabetes mellitus with diabetic polyneuropathy; R00.1 Bradycardia, unspecified; Z68.23 Body mass index [BMI] 23.0-23.9, adult
CPT/HCPCS: 36415; 36600; 71045-TC-FY; 71046-TC-FY; 71250-TC; 76700-TC; 76775-TC; 80053; 82272; 82550; 82570; 82728; 82746; 82803; 82962; 83540; 83550; 83735; 83880; 84100; 84156; 84484; 85025; 85610; 93005; 93010; 93306-TC; 93970-TC; 93971; 94640; 97116-GP; 97161-GP; 99283-25; G0378; J1644; J1756; P9047

== ENCOUNTER 2018-07-28 08:59 | Inpatient (IN) | payer OTHER ==
--- NOTE | 2018-07-28 09:11 | PDOC ---
Attending Attestation - Resident Resident Name: Luiz Moore - HPI HPI: 07/28/18 10:27 Pt presents to the ED complaining of shortness of breath, pleuritic R sided chest pain, GIVENS and PND. Seen for chest pain on 07/25, diagnosed with PNA. Symptoms are currently worsening despite antibiotics. Denies fever, nausea or vomiting. Denies abdominal pain. 07/28/18 11:25 - Physicial Exam PE: 07/28/18 11:33 Agree with resident exam. Patient is alert and mildly tachypneic, but speaking in complete sentences. CV: RRR, tachycardic, no murmurs. pulm:+ rales at the bases bilaterally. Good air entry. Abdomen: soft, non tender non distended without guarding or rebound. - Medical Decision Making 07/28/18 11:35 Pt presents to the ED complaining of shortness of breath, GIVENS and orthopnea, edema, rales and hypertension on exam. Differential includes CHF exacerbation, less likely worsening of her PNA, less likely ACS. Will treat with lasix and nitro and admit to medicine for continued management.
--- NOTE | 2018-07-28 09:35 | PDOC ---
History of Present Illness - General Chief Complaint: Chest Pain Stated Complaint: CHEST PAIN Time Seen by Provider: 07/28/18 09:11 History Source: Patient Exam Limitations: No Limitations - History of Present Illness Initial Comments: 07/28/18 09:36 78 yo Past History - Past Medical History Allergies/Adverse Reactions: Allergies Allergy/AdvReac Type Severity Reaction Status Date / Time valsartan [From Diovan] Allergy Mild Verified 07/28/18 12:16 Home Medications: Ambulatory Orders Aspirin [ASA -] 81 mg PO DAILY 09/09/15 Donepezil HCl 10 mg PO DAILY 02/01/18 Bupropion HCl [Wellbutrin Xl -] 150 mg PO DAILY #30 tab.sr.24h 02/09/18 Nifedipine ER [Procardia XL -] 60 mg PO DAILY #30 tab.er.24 02/09/18 Pantoprazole Sodium [Protonix -] 40 mg PO DAILY #30 tablet.ec 02/09/18 Lipase/Protease/Amylase [Elaine Sweeney 36,000 Units Capsule] 1 cap PO TIDCM #90 capsule. 04/24/18 Divalproex [Depakote -] 250 mg PO BID #30 tablet.ec MDD 2 05/09/18 Acetaminophen [Tylenol] 650 mg PO Q4H PRN 06/01/18 Cranberry Fruit Extract [Cranberry Extract] 1 gm PO DAILY 06/01/18 Furosemide [Lasix] 80 mg PO DAILY 06/01/18 Insulin Aspart [Novolog] 0 unit SQ ASDIR 06/01/18 Insulin Glargine,Hum.rec.anlog [Basaglar Kwikpen U-100] 10 unit SQ HS 06/01/18 Polyethylene Glycol 3350 [Miralax 119 gm Btl -] 17 gm PO DAILY 06/01/18 Pramipexole Di-HCl [Mirapex] 1 mg PO DAILY 06/01/18 Simvastatin 20 mg PO DAILY 06/01/18 Tramadol HCl 50 mg PO BID 06/01/18 hydrALAZINE HCL [Apresoline -] 50 mg PO TID 06/01/18 Ferrous Sulfate [Feosol] 325 mg PO BID ud 06/09/18 Furosemide [Lasix -] 40 mg PO BID@0600,1400 tablet 06/09/18 Heparin - 5,000 unit SQ BID vial 06/09/18 Insulin Sliding Scale [Novolog Vial Sliding Scale -] 1 vial SQ TIDAC units Metoclopramide HCl [Reglan -] 10 mg PO TIDAC tablet 06/09/18 Albuterol 0.083% Nebulizer Court [Ventolin 0.083% Nebulizer Soln -] 1 amp IN QID PRN 07/28/18 Cefuroxime Axetil [Cefuroxime] 250 mg PO BID 07/28/18 Furosemide [Lasix] 40 mg PO HS 07/28/18 Anemia: No Asthma: No Cancer: No Cardiac Disorders: No CVA: No COPD: No CHF: Yes DVT: No Dementia: Yes Diabetes: Yes GI Disorders: Yes (DIVERTICULOSIS, IBM) Disorders: Yes (UTERINE POLYPS,URINARY INCONTINENCE) HTN: Yes Hypercholesterolemia: Yes Liver Disease: No Seizures: No Thyroid Disease: No - Surgical History Abdominal Surgery: (abdominoplasty 15 yrs ago (tissue became necrotic)) Appendectomy: Yes Cardiac Surgery: No Cholecystectomy: Yes Lung Surgery: No Neurologic Surgery: No Orthopedic Surgery: No - Immunization History Immunization Up to Date: Yes - Suicide/Smoking/Psychosocial Hx Smoking Status: No Smoking History: Never smoked Have you smoked in the past 12 months: No Number of Cigarettes Smoked Daily: 0 Information on smoking cessation initiated: No Hx Alcohol Use: No Drug/Substance Use Hx: No Substance Use Type: None Hx Substance Use Treatment: No *Physical Exam - Vital Signs Last Vital Signs Temp Pulse Resp BP Pulse Ox 97.4 F L 74 20 240/78 H 100 07/28/18 09:29 07/28/18 09:29 07/28/18 09:29 07/28/18 09:29 07/28/18 09:29 ED Treatment Course - LABORATORY CBC & Chemistry Diagram: 07/28/18 09:50 07/28/18 09:50 *DC/Admit/Observation/Transfer Diagnosis at time of Disposition: Chest pain Qualifiers: Chest pain type: unspecified Qualified Code(s): R07.9 - Chest pain, unspecified - Referrals - Patient Instructions - Post Discharge Activity
[2018-07-28] MEDS ORDERED: ACETAMINOPHEN 1000 MG/100 ML VIAL (NON FORMULARY) IVPB ONE (09:47)
[2018-07-28] MEDS ORDERED: FUROSEMIDE 40 MG/4 ML INJECTABLE VIAL IVPUSH ONE ×2 (09:47→14:05)
[2018-07-28] MEDS ORDERED: NITROGLYCERIN 50 MG/10 ML VIAL IVPB SCH (10:30)
[2018-07-28 10:31] LABS: BASO % 0.7 % (0-2.0); HEMATOCRIT 29.8 % (32.4-45.2); HEMOGLOBIN 9.8 GM/dL (10.7-15.3); LYMPH % 19.7 % (8-40); MCH 26.2 pg (25.7-33.7); MEAN CELL VOLUME 79.4 fl (80-96); MONO % 13.7 % (3.8-10.2); NEUT % 62.9 % (42.8-82.8); PLATELET COUNT 492 K/MM3 (134-434); RBC 3.76 M/mm3 (3.60-5.2); RDW 19.2 % (11.6-15.6); WHITE BLOOD COUNT 7.3 K/mm3 (4.0-10.0)
[2018-07-28] MEDS ORDERED: FUROSEMIDE 40 MG/4 ML INJECTABLE VIAL ONE (10:32)
[2018-07-28 10:50] LABS: ALBUMIN 3.3 g/dl (3.4-5.0); BILIRUBIN,TOTAL 0.4 mg/dL (0.2-1); CALCIUM 8.7 mg/dL (8.5-10.1); CREATININE 1.6 mg/dL (0.55-1.3); N-TERMINAL BNP 5826.3 pg/ml (5-450); POTASSIUM 3.9 mmol/L (3.5-5.1); TOT PROT 7.2 g/dl (6.4-8.2)
[2018-07-28] MEDS ORDERED: NITROGLYCERIN 25MG/D5W 250ML 25 MG/250 ML ML IVPB ONE (10:57)
[2018-07-28] MEDS: NITROGLYCERIN 25MG/D5W 250ML 25 MG/250 ML ML IVPB SCH (11:19)
--- NOTE | 2018-07-28 13:54 | HP ---
Admitting History and Physical - Admission Chief Complaint: came in for chest pressure History of Present Illness: 78 yr old female with HTN,HLDcame in for chest pressure started last wednesday with shortness of breath, was dx with pneumonia and given abx july 25- cefuroxime, per records her lasix was also increase to 80mg in morning and 40mg in evening from 40mg po bid as on outpatient with metalozone 5mg daily in morning. pain on right side constant in nature and as pain in her back as well. she says after starting nitro her chest pain has slightly reduced in ER BNP 5800, and Cr 1.6 and BP 240/78 started iv nitrodrip and lasix 40mg given - Past Medical History [employer]: Yes: Dementia, Peripheral Neuropathy, Parkinson's Cardiovascular: Yes: HTN, Hyperlipdemia Gastrointestinal: Yes: Diverticulosis Psych: Yes: Anxiety Musculoskeletal: Yes: Osteoarthritis Endocrine: Yes: Diabetes Mellitus - Past Surgical History Past Surgical History: Yes: Appendectomy, Cholecystectomy, - Smoking History Smoking history: Never smoked Have you smoked in the past 12 months: No Aproximately how many cigarettes per day: 0 - Alcohol/Substance Use Hx Alcohol Use: No - Social History 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 History of Recent Travel: No Home Medications - Allergies Allergies/Adverse Reactions: Allergies Allergy/AdvReac Type Severity Reaction Status Date / Time valsartan [From Diovan] Allergy Mild Verified 07/28/18 12:16 - Home Medications Home Medications: Ambulatory Orders Aspirin [ASA -] 81 mg PO DAILY 09/09/15 Donepezil HCl 10 mg PO DAILY 02/01/18 Bupropion HCl [Wellbutrin Xl -] 150 mg PO DAILY #30 tab.sr.24h 02/09/18 Nifedipine ER [Procardia XL -] 60 mg PO DAILY #30 tab.er.24 02/09/18 Pantoprazole Sodium [Protonix -] 40 mg PO DAILY #30 tablet.ec 02/09/18 Lipase/Protease/Amylase [Elaine Sweeney 36,000 Units Capsule] 1 cap PO TIDCM #90 capsule. 04/24/18 Divalproex [Depakote -] 250 mg PO BID #30 tablet.ec MDD 2 05/09/18 Acetaminophen [Tylenol] 650 mg PO Q4H PRN 06/01/18 Cranberry Fruit Extract [Cranberry Extract] 1 gm PO DAILY 06/01/18 Furosemide [Lasix] 80 mg PO DAILY 06/01/18 Insulin Aspart [Novolog] 0 unit SQ ASDIR 06/01/18 Insulin Glargine,Hum.rec.anlog [Basaglar Kwikpen U-100] 10 unit SQ HS 06/01/18 Polyethylene Glycol 3350 [Miralax 119 gm Btl -] 17 gm PO DAILY 06/01/18 Pramipexole Di-HCl [Mirapex] 1 mg PO DAILY 06/01/18 Simvastatin 20 mg PO DAILY 06/01/18 Tramadol HCl 50 mg PO BID 06/01/18 hydrALAZINE HCL [Apresoline -] 50 mg PO TID 06/01/18 Ferrous Sulfate [Feosol] 325 mg PO BID ud 06/09/18 Furosemide [Lasix -] 40 mg PO BID@0600,1400 tablet 06/09/18 Heparin - 5,000 unit SQ BID vial 06/09/18 Insulin Sliding Scale [Novolog Vial Sliding Scale -] 1 vial SQ TIDAC units Metoclopramide HCl [Reglan -] 10 mg PO TIDAC tablet 06/09/18 Al[address]erol 0.083% Nebulizer Court [Ventolin 0.083% Nebulizer Soln -] 1 amp IN QID PRN 07/28/18 Cefuroxime Axetil [Cefuroxime] 250 mg PO BID 07/28/18 Furosemide [Lasix] 40 mg PO HS 07/28/18 Review of Systems - Review of Systems Cardiovascular: reports: Chest Pain (slightly better) Physical Examination Vital Signs: Vital Signs Temperature 98.3 F 07/28/18 12:25 Pulse Rate 68 07/28/18 12:25 Respiratory Rate 18 07/28/18 12:25 Blood Pressure 187/68 H 07/28/18 12:25 O2 Sat by Pulse Oximetry (%) 97 07/28/18 12:30 Constitutional: Yes: Calm Cardiovascular: Yes: Regular Rate and Rhythm, S1, S2 Respiratory: Yes: CTA Bilaterally Gastrointestinal: Yes: Normal Bowel Sounds, Soft Edema: Yes Neurological: Yes: Alert, Oriented Labs: CBC, BMP 07/28/18 09:50 07/28/18 09:50 Imaging - Results Chest X-ray: Report Reviewed (congestive changes seen) Problem List - Problems (1) Acute on chronic diastolic (congestive) heart failure Assessment/Plan: iv lasix 80 mg today cardiology consult- renal consult daily weight cxr and inc bnp- inc congestion/ ? infiltrate metoprolol 50mg hydralazine 50mg tid titrate down nitro drio Code(s): I50.33 - ACUTE ON CHRONIC DIASTOLIC (CONGESTIVE) HEART FAILURE (2) Chest pain Assessment/Plan: asprin echo telemetry statin 20mg Code(s): R07.9 - CHEST PAIN, UNSPECIFIED Qualifiers: Chest pain type: unspecified Qualified Code(s): R07.9 - Chest pain, unspecified (3) Diabetes Assessment/Plan: bgm sliding scale [id number] levemir Code(s): E11.9 - TYPE 2 DIABETES MELLITUS WITHOUT COMPLICATIONS Qualifiers: Diabetes mellitus type: type 2 (4) Anemia Assessment/Plan: iron panel supplements Code(s): D64.9 - ANEMIA, UNSPECIFIED Qualifiers: Anemia type: iron deficiency
--- NOTE | 2018-07-28 14:32 | CONSULT ---
Consult Consult Specialty:: Nephrology Reason for Consultation:: JASPER - History of Present Illness Chief Complaint: chest pain and shortness of breath History of Present Illness: Pt is a 78 year old female with pmhx of CKD, HTN, and HLD who presents to the ER with shortness of breath and chest pain. She. was found to be hypertensive and to have JASPER. I was called to evaluate her. Her lasix dose was increased to 80 mg in am and 40 gm in pm for lower ext edema. SHe says that it did not help. She denies dysuria or hematuria. She denies nsaid use. She denies palpitations. She does have cough. She denies fevers or chills. She was was recently treated with cefuroxime for PNA. 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, Peripheral Neuropathy, Parkinson's Cardio/Vascular: Yes: HTN, Hyperlipdemia Gastrointestinal: Yes: Diverticulosis Psych: Yes: Anxiety Musculoskeletal: Yes: Osteoarthritis Endocrine: Yes: Diabetes Mellitus - Past Surgical History Past Surgical History: Yes: Appendectomy, Cholecystectomy, - Alcohol/Substance Use Hx Alcohol Use: No - Smoking History Smoking history: Never smoked Have you smoked in the past 12 months: No Aproximately how many cigarettes per day: 0 - Social History Usual Living Arrangement: With Significant Other 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 History of Recent Travel: No Home Medications - Allergies Allergies/Adverse Reactions: Allergies Allergy/AdvReac Type Severity Reaction Status Date / Time valsartan [From Diovan] Allergy Mild Verified 07/28/18 12:16 - Home Medications Home Medications: Ambulatory Orders Aspirin [ASA -] 81 mg PO DAILY 09/09/15 Donepezil HCl 10 mg PO DAILY 02/01/18 Bupropion HCl [Wellbutrin Xl -] 150 mg PO DAILY #30 tab.sr.24h 02/09/18 Nifedipine ER [Procardia XL -] 60 mg PO DAILY #30 tab.er.24 02/09/18 Pantoprazole Sodium [Protonix -] 40 mg PO DAILY #30 tablet.ec 02/09/18 Lipase/Protease/Amylase [Elaine Sweeney 36,000 Units Capsule] 1 cap PO TIDCM #90 capsule. 04/24/18 Divalproex [Depakote -] 250 mg PO BID #30 tablet.ec MDD 2 05/09/18 Acetaminophen [Tylenol] 650 mg PO Q4H PRN 06/01/18 Cranberry Fruit Extract [Cranberry Extract] 1 gm PO DAILY 06/01/18 Furosemide [Lasix] 80 mg PO DAILY 06/01/18 Insulin Aspart [Novolog] 0 unit SQ ASDIR 06/01/18 Insulin Glargine,Hum.rec.anlog [Basaglar Kwikpen U-100] 10 unit SQ HS 06/01/18 Polyethylene Glycol 3350 [Miralax 119 gm Btl -] 17 gm PO DAILY 06/01/18 Pramipexole Di-HCl [Mirapex] 1 mg PO DAILY 06/01/18 Simvastatin 20 mg PO DAILY 06/01/18 Tramadol HCl 50 mg PO BID 06/01/18 hydrALAZINE HCL [Apresoline -] 50 mg PO TID 06/01/18 Ferrous Sulfate [Feosol] 325 mg PO BID ud 06/09/18 Furosemide [Lasix -] 40 mg PO BID@0600,1400 tablet 06/09/18 Heparin - 5,000 unit SQ BID vial 06/09/18 Insulin Sliding Scale [Novolog Vial Sliding Scale -] 1 vial SQ TIDAC units Metoclopramide HCl [Reglan -] 10 mg PO TIDAC tablet 06/09/18 Albuterol 0.083% Nebulizer Court [Ventolin 0.083% Nebulizer Soln -] 1 amp IN QID PRN 07/28/18 Cefuroxime Axetil [Cefuroxime] 250 mg PO BID 07/28/18 Furosemide [Lasix] 40 mg PO HS 07/28/18 Family Disease History - Family Disease History Family History: Denies Review of Systems - Review of Systems Constitutional: reports: Malaise HENT: reports: No Symptoms Neck: reports: No Symptoms Cardiovascular: reports: Chest Pain, Edema, Shortness of Breath Respiratory: reports: Cough, SOB, SOB on Exertion Gastrointestinal: reports: No Symptoms Genitourinary: reports: No Symptoms Musculoskeletal: reports: No Symptoms Integumentary: reports: No Symptoms Neurological: reports: No Symptoms Endocrine: reports: No Symptoms Hematology/Lymphatic: reports: No Symptoms Psychiatric: reports: No Symptoms Physical Exam Vital Signs: Vital Signs Temperature 98.3 F 07/28/18 12:25 Pulse Rate 68 07/28/18 12:25 Respiratory Rate 18 07/28/18 12:25 Blood Pressure 187/68 H 07/28/18 12:25 O2 Sat by Pulse Oximetry (%) 97 07/28/18 12:30 Constitutional: Yes: Calm Eyes: Yes: Conjunctiva Clear HENT: Yes: Atraumatic Neck: Yes: Supple Cardiovascular: Yes: S1, S2 Respiratory: Yes: On Nasal O2, Rhonchi Gastrointestinal: Yes: Normal Bowel Sounds, Soft Renal/: Yes: WNL Musculoskeletal: Yes: WNL Edema: Yes Edema: LLE: 2+, RLE: 2+ Neurological: Yes: Oriented Psychiatric: Yes: Oriented Labs: CBC, BMP 07/28/18 09:50 07/28/18 09:50 Laboratory Tests 06/07/18 06/08/18 06/09/18 06:00 06:00 07:15 WBC Hgb Plt Count Sodium Potassium Chloride Carbon Dioxide Anion Gap BUN Creatinine 1.1 1.0 1.2 B-Natriuretic Peptide 07/28/18 07/28/18 09:50 09:50 WBC 7.3 Hgb 9.8 L Plt Count 492 H D Sodium 139 Potassium 3.9 Chloride 100 Carbon Dioxide 33 H Anion Gap 6 L BUN 26 H Creatinine 1.6 H B-Natriuretic Peptide 5826.3 H Imaging - Results Chest X-ray: Report Reviewed Problem List - Problems (1) JASPER (acute kidney injury) Code(s): N17.9 - ACUTE KIDNEY FAILURE, UNSPECIFIED (2) Abdominal pain Code(s): R10.9 - UNSPECIFIED ABDOMINAL PAIN Qualifiers: Abdominal location: unspecified location Qualified Code(s): R10.9 - Unspecified abdominal pain (3) CHF (congestive heart failure) Code(s): I50.9 - HEART FAILURE, UNSPECIFIED Qualifiers: Heart failure type: unspecified Heart failure chronicity: acute Qualified Code(s): I50.9 - Heart failure, unspecified Assessment/Plan Current Medications Generic Name Dose Route Start Last Admin Trade Name Freq PRN Reason Stop Dose Admin Acetaminophen 650 mg 07/28/18 14:09 Tylenol - PO Q6H PRN PAIN LEVEL 1-5 Aspirin 81 mg 07/29/18 10:00 Asa - PO DAILY JOYCE Atorvastatin Calcium 20 mg 07/28/18 22:00 Lipitor - PO HS JOYCE Bupropion HCl 150 mg 07/29/18 10:00 Wellbutrin Xl - PO DAILY [facility] Donepezil HCl 10 mg 07/29/18 22:00 Aricept - PO HS JOYCE Ferrous Sulfate 325 mg 07/29/18 10:00 Feosol - PO DAILY [facility] Heparin Sodium (Porcine) 5,000 unit 07/28/18 22:00 Heparin - SQ BID JOYCE Hydralazine HCl 50 mg 07/28/18 14:15 Apresoline - PO TID [facility] Nitroglycerin/Dextrose 25 mg in 250 mls @ 6 mls/hr 07/28/18 11:00 07/28/18 11 :19 Nitroglycerin 25mg/D5w 250ml IVPB 10 mcg/min TITR JOYCE 6 mls/hr Administration 10 MCG/MIN Insulin Aspart 1 vial 07/28/18 16:30 Novolog Vial Sliding Scale - SQ ACHS [facility] Protocol Metoprolol Succinate 50 mg 07/28/18 14:15 Toprol Xl - PO DAILY [facility] Pancrelipase 1 cap 07/28/18 17:[address] 36,000 Units [address] PO [address] [facility] Pramipexole Dihydrochloride 1 mg 07/28/18 22:00 Mirapex - PO HS [facility] Impression 1. JASPER 2. fluid overload 3. HLD 4. shortness of breath 5. HTN 6. DM 7. proteinuria 8. chest pain Impression - metoprolol and hydralazine started - monitor bp on nitro - cont lasix and monitor renal function - consider stopping calcium channel curtis - check renal ultrasound - check ua - discussed with medical team
[2018-07-28] MEDS: hydrALAZINE HCL 25 MG TABLET (FP) PO SCH ×2 (14:37→21:28)
--- NOTE | 2018-07-28 15:58 | CON.CARD ---
Consult Consult Specialty:: Cardiology Referred by:: Dr. Espana Reason for Consultation:: SOB, edema - History of Present Illness Chief Complaint: SOB edema History of Present Illness: 78 year old woman with a PMHx of HTN, DM, HLD, GI bleeding, diverticulosis, anemia, dementia, Parkinson's disease and pneumonia in April 2018 admitted for worsening SOB and leg edema due to acute on chronic diastolic CHF and hypoalbuminemia leading to 3rd spacing including pleural effusions now admitted with c/o worsening sob and chest tightness, LE edema. Noted to have JASMIN. Lasix recently increased to 80mg am 40mg pm pt seen and examined today in nad. denies any further chest tightness. still feels sob especially when lying flat, still has b/l LE edema. BP was uncontrolled. Repeat echocardiogram 06/02/2018 showed normal LV size, wall motion and systolic function. LVEF = 60-65%. Normal RV. Normal LA and RA in size. No significant valvular abnormalities. Minimal pericardial effusion. 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: Dementia, Peripheral Neuropathy, Parkinson's Cardio/Vascular: Yes: HTN, Hyperlipdemia Gastrointestinal: Yes: Diverticulosis Psych: Yes: Anxiety Musculoskeletal: Yes: Osteoarthritis Endocrine: Yes: Diabetes Mellitus - Past Surgical History Past Surgical History: Yes: Appendectomy, Cholecystectomy, - Alcohol/Substance Use Hx Alcohol Use: No - Smoking History Smoking history: Never smoked Have you smoked in the past 12 months: No Aproximately how many cigarettes per day: 0 - Social History Usual Living Arrangement: With Significant Other 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 History of Recent Travel: No Home Medications - Allergies Allergies/Adverse Reactions: Allergies Allergy/AdvReac Type Severity Reaction Status Date / Time valsartan [From Diovan] Allergy Mild Verified 07/28/18 12:16 - Home Medications Home Medications: Ambulatory Orders Aspirin [ASA -] 81 mg PO DAILY 09/09/15 Donepezil HCl 10 mg PO DAILY 02/01/18 Bupropion HCl [Wellbutrin Xl -] 150 mg PO DAILY #30 tab.sr.24h 02/09/18 Nifedipine ER [Procardia XL -] 60 mg PO DAILY #30 tab.er.24 02/09/18 Pantoprazole Sodium [Protonix -] 40 mg PO DAILY #30 tablet.ec 02/09/18 Lipase/Protease/Amylase [Elaine Sweeney 36,000 Units Capsule] 1 cap PO TIDCM #90 capsule. 04/24/18 Divalproex [Depakote -] 250 mg PO BID #30 tablet.ec MDD 2 05/09/18 Acetaminophen [Tylenol] 650 mg PO Q4H PRN 06/01/18 Cranberry Fruit Extract [Cranberry Extract] 1 gm PO DAILY 06/01/18 Furosemide [Lasix] 80 mg PO DAILY 06/01/18 Insulin Aspart [Novolog] 0 unit SQ ASDIR 06/01/18 Insulin Glargine,Hum.rec.anlog [Basaglar Kwikpen U-100] 10 unit SQ HS 06/01/18 Polyethylene Glycol 3350 [Miralax 119 gm Btl -] 17 gm PO DAILY 06/01/18 Pramipexole Di-HCl [Mirapex] 1 mg PO DAILY 06/01/18 Simvastatin 20 mg PO DAILY 06/01/18 Tramadol HCl 50 mg PO BID 06/01/18 hydrALAZINE HCL [Apresoline -] 50 mg PO TID 06/01/18 Ferrous Sulfate [Feosol] 325 mg PO BID ud 06/09/18 Furosemide [Lasix -] 40 mg PO BID@0600,1400 tablet 06/09/18 Heparin - 5,000 unit SQ BID vial 06/09/18 Insulin Sliding Scale [Novolog Vial Sliding Scale -] 1 vial SQ TIDAC units Metoclopramide HCl [Reglan -] 10 mg PO TIDAC tablet 06/09/[address]ol 0.083% Nebulizer Court [Ventolin 0.083% Nebulizer Soln -] 1 amp IN QID PRN 07/28/18 Cefuroxime Axetil [Cefuroxime] 250 mg PO BID 07/28/18 Furosemide [Lasix] 40 mg PO HS 07/28/18 Family Disease History - Family Disease History Family History: Denies Review of Systems - Review of Systems Constitutional: denies: No Symptoms, Chills, Diaphoresis, Fever, Lethargy, Loss of Appetite, Malaise, Night Sweats, Unintentional Wgt. Loss, Weakness, Other Eyes: denies: No Symptoms, Blind Spots, Blurred Vision, Double Vision, Eye Pain , Floaters, Photophobia, Recent Change in Vision, Other HENT: denies: No Symptoms, Difficult Swallowing, Ear Discharge, Ear Pain, Epistaxis, Gingival Bleeding, Hearing Loss, Mouth Swelling, Nasal Congestion, Ocular Prosthesis, Throat Pain, Toothache, Ringing in Ears, Other Neck: denies: No Symptoms, Decreased ROM, Lumps, Pain on Movement, Stiffness, Swollen Glands, Tenderness, Other Cardiovascular: reports: Edema, Shortness of Breath. denies: No Symptoms, Chest Pain, Palpitations, Other Respiratory: reports: Orthopnea, SOB. denies: No Symptoms, Cough, Exercise Intolerance, Hemoptysis, PND, Snoring, SOB on Exertion, Wheezing, Other Gastrointestinal: denies: No Symptoms, Abdominal Pain, Bloating, Constipation, Diarrhea, Dysphagia, Indigestion, Melena, Nausea, Rectal Bleeding, Vomiting, Vomiting Blood, Other Genitourinary: denies: No Symptoms, Burning, Discharge, Dysuria, Flank Pain, Frequency, Hematuria, Incontinence, Lesions, Menses, Pain, Testicular Mass, Testicular Pain, Testicular Swelling, Urgency, Vaginal Bleeding, Other Breasts: denies: No Symptoms Reported, See HPI, Breast Implants, Discharge from Nipple, Lumps, Pain, Skin Changes, Other Musculoskeletal: denies: No Symptoms, Back Pain, Crepitus, Decreased ROM, Extremity Pain, Joint Pain, Joint Swelling, Muscle Pain, Muscle Cramps, Muscle Weakness, Other Integumentary: denies: No Symptoms, Blister, Bruising, Change in Color, Eczema, Erythema, Incision, Lesions, Lump, Pallor, Pruritis, Rash, Wound, Other Neurological: denies: No Symptoms, Change in LOC, Change in Speech, Confusion, Dizziness, Headache, Incoordination, Numbness, Parasthesia, Pre-Existing Deficit , Seizure, Syncope, Tremors, Unsteady Gait, Weakness, Other Endocrine: denies: No Symptoms, Excessive Sweating, Flushing, Increased Hunger, Increased Thirst, Intolerance to Cold, Intolerance to Heat, Unexplained Weight Gain, Unexplained Weight Loss, Other Hematology/Lymphatic: denies: No Symptoms, Easily Bruised, Excessive Bleeding, Swollen Glands, Other Psychiatric: denies: No Symptoms, Altered Sleep Pattern, Anxiety, Depression, Hallucinations, Panic, Paranoia, Suicidal, Other - Risk Factors Known Risk Factors: Yes: Age, Hypercholesterolemia, Hypertension Vital Signs: Vital Signs Temperature 98.3 F 07/28/18 12:25 Pulse Rate 68 07/28/18 12:25 Respiratory Rate 18 07/28/18 12:25 Blood Pressure 187/68 H 07/28/18 12:25 O2 Sat by Pulse Oximetry (%) 97 07/28/18 12:30 Constitutional: Yes: No Distress, Calm Eyes: Yes: Conjunctiva Clear, EOM Intact, PERRL HENT: Yes: Atraumatic, Normocephalic Neck: Yes: Supple, Trachea Midline Respiratory: Yes: Regular, Diminished, On Nasal O2. No: Rales, Rhonchi, SOB, Wheezes Gastrointestinal: Yes: Normal Bowel Sounds, Soft. No: Distention, Tenderness Cardiovascular: Yes: Regular Rate and Rhythm. No: Bradycardia, Tachycardia, Pulse Irregular, Gallop, Rub, Varicosities JVD: No Carotid Bruit: No PMI: Non-Displaced Heart Sounds: Yes: S1, S2. No: Split S2, S3, S4, Clicks, Gallop, Rub, Bruit Murmur: No: Systolic Murmur, Diastolic Murmur Musculoskeletal: Yes: Muscle Weakness Edema: Yes Edema: LLE: 1+, RLE: 1+ Peripheral Pulses WNL: Yes Peripheral Pulses: 2+ Left Doralis Pedis, 2+ Right Dorsalis Pedis Neurological: Yes: Alert, Oriented Psychiatric: Yes: Alert, Oriented - Other Data Labs, Other Data: CBC, BMP 07/28/18 09:50 07/28/18 09:50 Troponin, BNP 07/28/18 09:50 Troponin I 0.02 B-Natriuretic Peptide 5826.3 H Troponin, BNP 07/28/18 09:50 Troponin I 0.02 B-Natriuretic Peptide 5826.3 H Echo: Report Reviewed Imaging - Results Chest X-ray: Report Reviewed, Image Reviewed EKG: Report Reviewed, Image Reviewed Other: Report Reviewed, Image Reviewed Assessment/Plan 78 year old woman with a PMHx of HTN, DM, HLD, GI bleeding, diverticulosis, anemia, dementia, Parkinson's disease and pneumonia in April 2018 admitted for worsening SOB and leg edema due to acute on chronic diastolic CHF and hypoalbuminemia leading to 3rd spacing including pleural effusions now admitted with c/o worsening sob and chest tightness, LE edema. Noted to have JASMIN. Lasix recently increased to 80mg am 40mg pm pt seen and examined today in nad. denies any further chest tightness. still feels sob especially when lying flat, still has b/l LE edema. BP was uncontrolled. Repeat echocardiogram 06/02/2018 showed normal LV size, wall motion and systolic function. LVEF = 60-65%. Normal RV. Normal LA and RA in size. No significant valvular abnormalities. Minimal pericardial effusion. Dyspnea and edema: multifactorial -component of acute on chronic diastolic CHF in the setting of low oncotic pressure (severe hypoalbuminemia) leading to third spacing and anasarca including pleural effusion and LE edema -cont IV Lasix for now (received dose this am) -monitor strict I/Os and daily weights -monitor bun/creat, electrolytes, and replete as needed -concern that aggressive diuresis will lead to intravascular depletion secondary to low oncotic pressure, if bun/creat trend up will likely need to stop IV Lasix -may benefit from Torsemide po to replace Furosemide, will consider after trial of IV Lasix -Nutritional support -would be helpful to know source of low albumin Hypertension-variable but uncontrolled, was low normal on prior admission after anti-htn meds were adjusted -currently on NTG gtt as well as metoprolol and hydralazine -reported allergy to valsartan and would not start jasper-i/arb in setting of JASMIN -metoprolol was started today, if ineffective can change to Labetalol starting with 300mg po BID
[2018-07-28 16:30] VITALS: BMI 27.0
[2018-07-28] MEDS ORDERED: PT OWN MED DRAWER 7, Y5N ONE (16:55)
[2018-07-28] MEDS: INSULIN SLIDING SCALE (NOVOLOG) 1 VIAL SQ SCH ×2 (17:03→21:18)
[2018-07-28] MEDS: LIPASE/PROTEASE/AMYLASE 36,000 UNIT CAPSULE PO SCH (17:29)
[2018-07-28] MEDS: HEPARIN NA (PORCINE) 5,000 UNITS/ML 1ML VIAL SQ SCH (21:28)
[2018-07-28] MEDS: ATORVASTATIN CA 20 MG TABLET (FP) PO SCH (21:28)
[2018-07-28] MEDS ORDERED: PRAMIPEXOLE DIHYDROCHLORIDE 1 MG TABLET PO SCH (22:00)
[2018-07-29] MEDS: INSULIN SLIDING SCALE (NOVOLOG) 1 VIAL SQ SCH ×4 (06:11→21:40)
[2018-07-29] MEDS: hydrALAZINE HCL 25 MG TABLET (FP) PO SCH ×3 (06:11→21:45)
[2018-07-29 07:14] LABS: HEMATOCRIT 26.8 % (32.4-45.2); MCH 26.2 pg (25.7-33.7); MCHC 33.6 g/dl (32.0-36.0); MEAN CELL VOLUME 78.1 fl (80-96); MEAN PLT VOLUME 7.1 fl (7.5-11.1); PLATELET COUNT 438 K/MM3 (134-434); RBC 3.43 M/mm3 (3.60-5.2); RDW 19.3 % (11.6-15.6); WHITE BLOOD COUNT 6.3 K/mm3 (4.0-10.0)
[2018-07-29 07:58] LABS: ALBUMIN 2.8 g/dl (3.4-5.0); BILIRUBIN,TOTAL 0.4 mg/dL (0.2-1); CALCIUM 8.7 mg/dL (8.5-10.1); CREATININE 1.4 mg/dL (0.55-1.3); PHOSPHOROUS 3.8 mg/dL (2.5-4.9); POTASSIUM 3.8 mmol/L (3.5-5.1)
[2018-07-29 09:10] LABS: RATIO URIN PROTEIN/URIN CREAT 4.35 MG/DL
[2018-07-29 09:22] LABS: EPI CELLS 0.4 /HPF (0-5/HPF); URINE APPEARANCE CLEAR; URINE BACTERIA 391.4 /hpf (NEGATIVE); URINE BILIRUBIN NEGATIVE (NEGATIVE); URINE CASTS 0 /lpf (0-8); URINE COLOR YELLOW; URINE GLUCOSE (UA) NEGATIVE (NEGATIVE); URINE KETONE NEGATIVE (NEGATIVE); URINE LEUK ESTERASE NEGATIVE (NEGATIVE); URINE NITRITE NEGATIVE (NEGATIVE); URINE PROTEIN 1+ (NEGATIVE); URINE RBC 2 /hpf (0-4); URINE UROBILINOGEN 0.2 mg/dL (0.2-1.0); URINE WBC 1 /hpf (0-5)
[2018-07-29] MEDS ORDERED: PT OWN MED DRAWER 7, Y5N ONE ×2 (10:28→21:22)
--- NOTE | 2018-07-29 10:41 | PN ---
Progress Note, Physician Chief Complaint: no more chest pressure still on iv nitro start on labetolol today continue hydralazine - Current Medication List Current Medications: Active Medications Acetaminophen (Tylenol -) 650 mg PO Q6H PRN PRN Reason: PAIN LEVEL 1-5 Aspirin (Asa -) 81 mg PO DAILY [facility] Atorvastatin Calcium (Lipitor -) 20 mg PO HS [facility] Last Admin: 07/28/18 21:28 Dose: 20 mg Bupropion HCl (Wellbutrin Xl -) 150 mg PO DAILY [facility] Donepezil HCl (Aricept -) 10 mg PO HS [facility] Ferrous Sulfate (Feosol -) 325 mg PO DAILY [facility] Furosemide (Lasix Injection -) 40 mg IVPUSH BID@0600,1400 [facility] Heparin Sodium (Porcine) (Heparin -) 5,000 unit SQ BID [facility] Last Admin: 07/28/18 21:28 Dose: 5,000 unit Hydralazine HCl (Apresoline -) 50 mg PO TID [facility] Last Admin: 07/29/18 06:11 Dose: 50 mg Nitroglycerin/Dextrose (Nitroglycerin 25mg/D5w 250ml) 25 mg in 250 mls @ 6 mls/ hr IVPB TITR [facility] Last Titration: 07/29/18 08:00 Dose: 40 mcg/min, 24 mls/hr Insulin Aspart (Novolog Vial Sliding Scale -) 1 vial SQ [facility]; Protocol Last Admin: 07/29/18 06:11 Dose: Not Given Labetalol HCl (Normodyne -) 300 mg PO BID [facility] Pancrelipase (Creon Dr 36,000 Units Capsule) 1 cap PO TIDCM [facility] Last Admin: 07/28/18 17:29 Dose: 1 cap Pramipexole Dihydrochloride (Mirapex -) 1 mg PO [facility] - Objective Vital Signs: Vital Signs Temperature 98.1 F 07/29/18 08:00 Pulse Rate 65 07/29/18 09:00 Respiratory Rate 20 07/29/18 09:00 Blood Pressure 179/50 H 07/29/18 09:00 O2 Sat by Pulse Oximetry (%) 98 07/29/18 09:00 Constitutional: Yes: Calm Cardiovascular: Yes: Regular Rate and Rhythm, S1, S2 Respiratory: Yes: CTA Bilaterally Neurological: Yes: Alert, Oriented Labs: CBC, BMP 07/29/18 05:30 07/29/18 05:30 Problem List - Problems (1) Acute on chronic diastolic (congestive) heart failure Assessment/Plan: iv lasix 40mg po bid cardiology consult-noted started on labetolol no ACEI or ARB renal consult- renal sono daily weight down from 138 to 131 lbs cxr and inc bnp- inc congestion/ ? infiltrate metoprolol 50mg stop and start labetolol hydralaziine tid on iv nitro as well Code(s): I50.33 - ACUTE ON CHRONIC DIASTOLIC (CONGESTIVE) HEART FAILURE (2) Chest pain Assessment/Plan: chest pressure resolved echo telemetry statin 20mg Code(s): R07.9 - CHEST PAIN, UNSPECIFIED Qualifiers: Chest pain type: unspecified Qualified Code(s): R07.9 - Chest pain, unspecified (3) Diabetes Assessment/Plan: bgm sliding scale [id number] levemir on hold for now Code(s): E11.9 - TYPE 2 DIABETES MELLITUS WITHOUT COMPLICATIONS Qualifiers: Diabetes mellitus type: type 2 (4) Anemia Assessment/Plan: iron panel supplements Code(s): D64.9 - ANEMIA, UNSPECIFIED Qualifiers: Anemia type: iron deficiency (5) Depression Assessment/Plan: wellbutrin Code(s): F32.9 - MAJOR DEPRESSIVE DISORDER, SINGLE EPISODE, UNSPECIFIED
[2018-07-29] MEDS: LIPASE/PROTEASE/AMYLASE 36,000 UNIT CAPSULE PO SCH ×3 (10:44→17:34)
[2018-07-29] MEDS: FERROUS SO4 325 MG TABLET (FP) PO SCH (10:45)
[2018-07-29] MEDS: ASPIRIN 81 MG CHEWABLE TABLETS PO SCH (10:45)
[2018-07-29] MEDS: HEPARIN NA (PORCINE) 5,000 UNITS/ML 1ML VIAL SQ SCH ×2 (10:45→21:45)
[2018-07-29] MEDS: LABETALOL HCL 100 MG TABLET (FP) PO SCH ×2 (10:48→21:45)
--- NOTE | 2018-07-29 11:23 | ECHO ---
Name: TRENT GIA Exam:Adult Echocardiogram Study Date: 07/29/2018 08:33 AM Age: 78 yrs Reason For Study: ef Height: 61 in Weight: 138 lb BSA: 1.6 m2 MMode/2D Measurements & Calculations IVSd: 1.5 cm Ao root diam: 2.5 cm LVIDd: 4.2 cm LA dimension: 3.6 cm LVIDs: 2.3 cm LVPWd: 1.2 cm EDV(Teich): 76.6 ml LVOT diam: 2.0 cm ESV(Teich): 17.2 ml LAV (MOD-bp): 52.7 ml Doppler Measurements & Calculations MV E max madi: 113.0 cm/sec Ao V2 max: 184.6 cm/sec MV A max madi: 123.7 cm/sec Ao max P.6 mmHg MV E/A: 0.91 MV dec time: 0.18 sec CALLIE(V,D): 2.1 cm2 LV V1 max P.7 mmHg PA V2 max: 120.8 cm/sec LV V1 max: 119.8 cm/sec PA max P.8 mmHg Med Peak E' Madi: 4.5 cm/sec PI Vmax: 141.2 cm/sec Med E/e': 25.3 Lat Peak E' Madi: 4.0 cm/sec Lat E/e': 28.1 Left Ventricle There is mild concentric left ventricular hypertrophy. Left ventricular systolic function is normal. Ejection Fraction = 55-60%. The transmitral spectral Doppler flow pattern is normal for age. Right Ventricle The right ventricle is normal in size and function. Atria The left atrium is mildly dilated. Mitral Valve The mitral valve is normal in structure and function. There is no mitral valve stenosis. There is tra ce mitral regurgitation. Tricuspid Valve The tricuspid valve is normal in structure and function. There is mild tricuspid regurgitation. Aortic Valve The aortic valve opens well. No hemodynamically significant valvular aortic stenosis. No aortic regur gitation is present. Pulmonic Valve The pulmonic valve is not well seen, but is grossly normal. There is no pulmonic valvular stenosis. M ild pulmonic valvular regurgitation. Great Vessels The aortic root is normal size. Pericardium/Pleura Trivial pericardial effusion not hemodynamically significant. Interpretation Summary Left ventricular systolic function is normal. Ejection Fraction = 55-60%. The transmitral spectral Doppler flow pattern is normal for age. The right ventricle is normal in size and function. The left atrium is mildly dilated. There is mild concentric left ventricular hypertrophy. There is mild tricuspid regurgitation. Mild pulmonic valvular regurgitation. Trivial pericardial effusion not hemodynamically significant MD Freddie Elizabeth 07/29/2018 11:22 AM
[2018-07-29] MEDS: ONDANSETRON 4 MG/2 ML VIAL IVPUSH PRN (11:57)
[2018-07-29] MEDS: NITROGLYCERIN 25MG/D5W 250ML 25 MG/250 ML ML IVPB SCH (12:01)
[2018-07-29] MEDS ORDERED: INSULIN (LEVEMIR) 100 UNITS/ML UNITS SQ ONE (12:09)
[2018-07-29] MEDS: FUROSEMIDE 40 MG/4 ML INJECTABLE VIAL IVPUSH SCH (13:21)
--- NOTE | 2018-07-29 14:53 | EKG ---
Test Reason : Blood Pressure : / mmHG Vent. Rate : 066 BPM Atrial Rate : 066 BPM P-R Int : 162 ms QRS Dur : 106 ms QT Int : 382 ms P-R-T Axes : 010 -41 032 degrees QTc Int : 400 ms NORMAL SINUS RHYTHM LEFT AXIS DEVIATION NONSPECIFIC T WAVE ABNORMALITY ABNORMAL ECG WHEN COMPARED WITH ECG OF 28-JUL-2018 09:04, QT HAS SHORTENED Confirmed by BRANDIN MOYA MD ([id number]) on 07/29/2018 2:52:34 PM Referred By: VICTORINO TRIPATHI Confirmed By:BRANDIN MOYA MD
--- NOTE | 2018-07-29 15:03 | EKG ---
Test Reason : Blood Pressure : / mmHG Vent. Rate : 070 BPM Atrial Rate : 070 BPM P-R Int : 162 ms QRS Dur : 104 ms QT Int : 420 ms P-R-T Axes : -29 -43 077 degrees QTc Int : 453 ms NORMAL SINUS RHYTHM LEFT AXIS DEVIATION NON-SPECIFIC INTRA-VENTRICULAR CONDUCTION DELAY Confirmed by BRANDIN MOYA MD ([id number]) on 07/29/2018 3:03:34 PM Referred By: Confirmed By:BRANDIN MOYA MD
--- NOTE | 2018-07-29 15:26 | PN ---
Progress Note, Physician History of Present Illness: Pt seen and examined at bedside. She is awake and alert. She says that she feels better today. She feels that her breathing is improving. - Current Medication List Current Medications: Active Medications Acetaminophen (Tylenol -) 650 mg PO Q6H PRN PRN Reason: PAIN LEVEL 1-5 Aspirin (Asa -) 81 mg PO DAILY [facility] Last Admin: 07/29/18 10:45 Dose: 81 mg Atorvastatin Calcium (Lipitor -) 20 mg PO HS [facility] Last Admin: 07/28/18 21:28 Dose: 20 mg Bupropion HCl (Wellbutrin Xl -) 150 mg PO DAILY [facility] Last Admin: 07/29/18 10:44 Dose: 150 mg Donepezil HCl (Aricept -) 10 mg PO HS [facility] Ferrous Sulfate (Feosol -) 325 mg PO DAILY [facility] Last Admin: 07/29/18 10:45 Dose: 325 mg Furosemide (Lasix Injection -) 40 mg IVPUSH BID@0600,1400 [facility] Last Admin: 07/29/18 13:21 Dose: 40 mg Heparin Sodium (Porcine) (Heparin -) 5,000 unit SQ BID [facility] Last Admin: 07/29/18 10:45 Dose: 5,000 unit Hydralazine HCl (Apresoline -) 50 mg PO TID [facility] Last Admin: 07/29/18 13:21 Dose: 50 mg Nitroglycerin/Dextrose (Nitroglycerin 25mg/D5w 250ml) 25 mg in 250 mls @ 6 mls/ hr IVPB TITR [facility] Last Titration: 07/29/18 15:00 Dose: 10 mcg/min, 6 mls/hr Insulin Aspart (Novolog Vial Sliding Scale -) 1 vial SQ ACHS [facility]; Protocol Last Admin: 07/29/18 11:57 Dose: 8 units Insulin Detemir (Levemir Vial) 14 units SQ DAILY@0800 [facility] Labetalol HCl (Normodyne -) 300 mg PO BID [facility] Last Admin: 07/29/18 10:48 Dose: 300 mg Ondansetron HCl (Zofran Injection) 4 mg IVPUSH Q6H PRN PRN Reason: NAUSEA AND/OR VOMITING Last Admin: 07/29/18 11:57 Dose: 4 mg Pancrelipase (Creon Dr 36,000 Units Capsule) 1 cap PO TIDCM [facility] Last Admin: 07/29/18 12:06 Dose: 1 cap Pramipexole Dihydrochloride (Mirapex -) 1 mg PO HS [facility] - Objective Vital Signs: Vital Signs Temperature 99.0 F 07/29/18 14:03 Pulse Rate 60 07/29/18 14:03 Respiratory Rate 20 07/29/18 14:03 Blood Pressure 147/53 L 07/29/18 14:03 O2 Sat by Pulse Oximetry (%) 98 07/29/18 09:00 Constitutional: Yes: Calm Eyes: Yes: Conjunctiva Clear HENT: Yes: Atraumatic Neck: Yes: Supple Cardiovascular: Yes: S1, S2 Respiratory: Yes: CTA Bilaterally Gastrointestinal: Yes: Soft Genitourinary: Yes: WNL Edema: Yes Edema: LLE: 1+, RLE: 1+ Neurological: Yes: Oriented Psychiatric: Yes: Oriented Labs: CBC, BMP 07/29/18 05:30 07/29/18 05:30 Problem List - Problems (1) JASPER (acute kidney injury) Code(s): N17.9 - ACUTE KIDNEY FAILURE, UNSPECIFIED (2) Abdominal pain Code(s): R10.9 - UNSPECIFIED ABDOMINAL PAIN Qualifiers: Abdominal location: unspecified location Qualified Code(s): R10.9 - Unspecified abdominal pain (3) CHF (congestive heart failure) Code(s): I50.9 - HEART FAILURE, UNSPECIFIED Qualifiers: Heart failure type: unspecified Heart failure chronicity: acute Qualified Code(s): I50.9 - Heart failure, unspecified Assessment/Plan Current Medications Generic Name Dose Route Start Last Admin Trade Name Sandovalq PRN Reason Stop Dose Admin Acetaminophen 650 mg 07/28/18 14:09 Tylenol - PO Q6H PRN PAIN LEVEL 1-5 Aspirin 81 mg 07/29/18 10:00 07/29/18 10:45 Asa - PO 81 mg DAILY [facility] Administration Atorvastatin Calcium 20 mg 07/28/18 22:00 07/28/18 21:28 Lipitor - PO 20 mg HS [facility] Administration Bupropion HCl 150 mg 07/29/18 10:00 07/29/18 10:44 Wellbutrin Xl - PO 150 mg DAILY [facility] Administration Donepezil HCl 10 mg 07/29/18 22:00 Aricept - PO HS [facility] Ferrous Sulfate 325 mg 07/29/18 10:00 07/29/18 10:45 Feosol - PO 325 mg DAILY [facility] Administration Furosemide 40 mg 07/29/18 14:00 07/29/18 13:21 Lasix Injection - IVPUSH 40 mg BID@0600,1400 [facility] Administration Heparin Sodium (Porcine) 5,000 unit 07/28/18 22:00 07/29/18 10:45 Heparin - SQ 5,000 unit BID [facility] Administration Hydralazine HCl 50 mg 07/28/18 14:15 07/29/18 13:21 Apresoline - PO 50 mg TID [facility] Administration Nitroglycerin/Dextrose 25 mg in 250 mls @ 6 mls/hr 07/28/18 11:00 07/29/18 15 :00 Nitroglycerin 25mg/D5w 250ml IVPB 10 mcg/min TITR [facility] 6 mls/hr Titration 10 MCG/MIN Insulin Aspart 1 vial 07/28/18 16:30 07/29/18 11:57 Novolog Vial Sliding Scale - SQ 8 units ACHS [facility] Administration Protocol Insulin Detemir 14 units 07/30/18 08:00 Levemir Vial SQ DAILY@0800 [facility] Labetalol HCl 300 mg 07/29/18 10:45 07/29/18 10:48 Normodyne - PO 300 mg BID [facility] Administration Ondansetron HCl 4 mg 07/29/18 11:51 07/29/18 11:57 Zofran Injection IVPUSH 4 mg Q6H PRN Administration NAUSEA AND/OR VOMITING Pancrelipase 1 cap 07/28/18 17:30 07/29/18 12:[address] 36,000 Units Capsule PO 1 cap TIDCM [facility] Administration Pramipexole Dihydrochloride 1 mg 07/29/18 22:00 Mirapex - PO HS [facility] Laboratory Tests 07/28/18 07/28/18 06:00 06:00 Urine Protein 1+ H Protein/Creatinin Ratio 4.350 Laboratory Tests 10/10/15 05/05/18 14:25 06:30 CARMEN M-Jacob Not observed DAVID Screen Negative c-ANCA <1:20 Proteinase 3 (PR3) <3.5 SS-A/Ro Antibody <0.2 p-ANCA <1:20 Atypical p-ANCA <1:20 SS-B/La Antibody <0.2 Myeloperoxidase Ab <9.0 Double Strand DNA Ab <1 Impression 1. JASPER 2. fluid overload 3. HLD 4. shortness of breath 5. HTN 6. DM 7. proteinuria 8. chest pain Impression - check spep - renal function is improving - edema is improving - can decrease dose of lasix - titrate up PO bp meds and titrated down drip, bp is improved - serologies negative from last visit - pt has allergy to ARB, unable to start
--- NOTE | 2018-07-29 16:09 | PN ---
Progress Note, Physician History of Present Illness: seen and examined today in nad. feeling better. c/o R shoulder pain. edema improving, sob improving. - Current Medication List Current Medications: Active Medications Acetaminophen (Tylenol -) 650 mg PO Q6H PRN PRN Reason: PAIN LEVEL 1-5 Aspirin (Asa -) 81 mg PO DAILY [facility] Last Admin: 07/29/18 10:45 Dose: 81 mg Atorvastatin Calcium (Lipitor -) 20 mg PO HS [facility] Last Admin: 07/28/18 21:28 Dose: 20 mg Bupropion HCl (Wellbutrin Xl -) 150 mg PO DAILY [facility] Last Admin: 07/29/18 10:44 Dose: 150 mg Donepezil HCl (Aricept -) 10 mg PO HS [facility] Ferrous Sulfate (Feosol -) 325 mg PO DAILY [facility] Last Admin: 07/29/18 10:45 Dose: 325 mg Furosemide (Lasix Injection -) 40 mg IVPUSH BID@0600,1400 [facility] Last Admin: 07/29/18 13:21 Dose: 40 mg Heparin Sodium (Porcine) (Heparin -) 5,000 unit SQ BID [facility] Last Admin: 07/29/18 10:45 Dose: 5,000 unit Hydralazine HCl (Apresoline -) 50 mg PO TID [facility] Last Admin: 07/29/18 13:21 Dose: 50 mg Nitroglycerin/Dextrose (Nitroglycerin 25mg/D5w 250ml) 25 mg in 250 mls @ 6 mls/ hr IVPB TITR [facility] Last Titration: 07/29/18 15:00 Dose: 10 mcg/min, 6 mls/hr Insulin Aspart (Novolog Vial Sliding Scale -) 1 vial SQ ACHS [facility]; Protocol Last Admin: 07/29/18 11:57 Dose: 8 units Insulin Detemir (Levemir Vial) 14 units SQ DAILY@0800 [facility] Labetalol HCl (Normodyne -) 300 mg PO BID [facility] Last Admin: 07/29/18 10:48 Dose: 300 mg Ondansetron HCl (Zofran Injection) 4 mg IVPUSH Q6H PRN PRN Reason: NAUSEA AND/OR VOMITING Last Admin: 07/29/18 11:57 Dose: 4 mg Pancrelipase (Creon Dr 36,000 Units Capsule) 1 cap PO TIDCM [facility] Last Admin: 07/29/18 12:06 Dose: 1 cap Pramipexole Dihydrochloride (Mirapex -) 1 mg PO HS [facility] - Objective Vital Signs: Vital Signs Temperature 99.0 F 07/29/18 14:03 Pulse Rate 60 07/29/18 14:03 Respiratory Rate 20 07/29/18 14:03 Blood Pressure 147/53 L 07/29/18 14:03 O2 Sat by Pulse Oximetry (%) 98 07/29/18 09:00 Constitutional: Yes: No Distress, Calm Eyes: Yes: Conjunctiva Clear, EOM Intact, PERRL HENT: Yes: Atraumatic, Normocephalic Neck: Yes: Supple, Trachea Midline Cardiovascular: Yes: Regular Rate and Rhythm, S1, S2. No: Bradycardia, Tachycardia, Pulse Irregular, Bruit, JVD, Gallop, Murmur, Rub, S3, S4, Varicosities Respiratory: Yes: Regular, Diminished, Rhonchi. No: SOB Gastrointestinal: Yes: Normal Bowel Sounds, Soft. No: Distention, Tenderness Extremities: Yes: WNL Edema: Yes Edema: LLE: Trace, RLE: Trace Peripheral Pulses WNL: Yes Peripheral Pulses: Left Doralis Pedis: 2+, Right Dorsalis Pedis: 2+ Neurological: Yes: Alert, Oriented Psychiatric: Yes: Alert, Oriented Labs: CBC, BMP 07/29/18 05:30 07/29/18 05:30 - ....Imaging Chest X-ray: Report Reviewed, Image Reviewed EKG: Report Reviewed, Image Reviewed Other: Report Reviewed, Image Reviewed (tele-no events recorded) Assessment/Plan 78 year old woman with a PMHx of HTN, DM, HLD, GI bleeding, diverticulosis, anemia, dementia, Parkinson's disease and pneumonia in April 2018 admitted for worsening SOB and leg edema due to acute on chronic diastolic CHF and hypoalbuminemia leading to 3rd spacing including pleural effusions now admitted with c/o worsening sob and chest tightness, LE edema. Noted to have JASMIN. Lasix recently increased to 80mg am 40mg pm pt seen and examined today in nad. denies any further chest tightness. still feels sob especially when lying flat, still has b/l LE edema. BP was uncontrolled. Repeat echocardiogram 06/02/2018 showed normal LV size, wall motion and systolic function. LVEF = 60-65%. Normal RV. Normal LA and RA in size. No significant valvular abnormalities. Minimal pericardial effusion. Dyspnea and edema: multifactorial -component of acute on chronic diastolic CHF in the setting of low oncotic pressure (severe hypoalbuminemia) leading to third spacing and anasarca including pleural effusion and LE edema -volume status improving with Lasix -can decrease Lasix dose -monitor strict I/Os and daily weights -monitor bun/creat, electrolytes, and replete as needed -concern that aggressive diuresis will lead to intravascular depletion secondary to low oncotic pressure, if bun/creat trend up will likely need to stop IV Lasix -may benefit from Torsemide po to replace Furosemide, will consider after trial of IV Lasix -Nutritional support Hypertension-better controlled, was low normal on prior admission after anti- htn meds were adjusted -BP now adequately controlled -stop NTG gtt -now on Labetalol 300mg bid and Hydralazine 50mg tid with improved BP controlled -reported allergy to valsartan and would not start jasper-i/arb in setting of JASMIN
--- NOTE | 2018-07-29 17:59 | CONSULT ---
Consult - text type - Consultation Consultation Note: NEUROLOGY CONSULT GREATLY APPRECIATED: Seen and examined as requested by daughter. This 78 yo LH F with HTN, HLD, DM, dementia, depression, GERD, CHF, hx Myoclonus , RLS. Last seen by me in consult 05/06/18. On: ASA (81), donepezil 10, bupropion, nifedipine, pantoprazole, Depakote ER ( 250 BID), lasix, pramipexole (1 mg qhs), simvastatin, tramadol 50 BID, hydralazine, Feosol, insulin. Admitted with exertional chest pains, recent community acquired (on cefuroxime ) and elevated BNP (5826), improved with diuresis. Admission BP 240/78-> now 140s-160s/80s. Patient denies headaches, nausea, etc. Pt vague historian, unable to provide cogent history. STEVENSON: Cor reg. No bruit. Neck supple. Coughing. 2+ pretibial edema NEURO: Awake, alert, responsive. Ox [facility]. June." + glabella, grasps CNII-CNXII: EOM's full. Full thorne. No facial. Tolerating solid foods without difficulty. Motor: No drift. Strength normal. Reflexes brisk in arms with spread. Decreased SELENE's. Normal reflexes in legs. Toes downgoing. No sig. cogwheeling Coordination: No FTN dystaxia. Sensation: Normal to vibration. 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 Worsened by Toxic-Metabolic Encephalopathy (CHF, PNA) Restless Limbs Syndrome (RLS) Suggest: Continue antibiotics as indicated, monitor I/O Control of systolic BPs < 140s- admission systolic HTN raises issues of compliance and supervision with meds (complicated by Pt's ataxia). Continue depakote 250 mg BID vs Myoclonus Continue donepezil 10 mg po qam for AD Continue pramipexole 1 mg po qhs for RLS Pt eval for gait training and safety with [facility] director of managed services eval for [facility]/SNF Thank you very much, Panchito Helton MD
[2018-07-29] MEDS: ATORVASTATIN CA 20 MG TABLET (FP) PO SCH (21:45)
[2018-07-29] MEDS: PRAMIPEXOLE DIHYDROCHLORIDE 0.5 MG TABLET PO SCH (21:46)
[2018-07-29] MEDS ORDERED: INSULIN (LEVEMIR) 100 UNITS/ML UNITS SQ SCH (22:00)
[2018-07-29] MEDS ORDERED: DONEPEZIL HCL 10 MG TABLET (FP) PO SCH (22:00)
[2018-07-30 04:10] LABS: SERUM IRON SATURATION 24 % (15-55); TOTAL IRON BINDING CAPACITY 223 ug/dL (250-450); UIBC 170 ug/dL (118-369)
[2018-07-30] MEDS: INSULIN SLIDING SCALE (NOVOLOG) 1 VIAL SQ SCH ×4 (06:33→22:07)
[2018-07-30] MEDS: hydrALAZINE HCL 25 MG TABLET (FP) PO SCH ×3 (06:47→21:52)
[2018-07-30] MEDS: FUROSEMIDE 40 MG/4 ML INJECTABLE VIAL IVPUSH SCH ×2 (06:47→13:33)
--- NOTE | 2018-07-30 08:51 | PN ---
Progress Note (short form) - Note Progress Note: RENAL pt denies complaints Last Vital Signs Temp Pulse Resp BP Pulse Ox 98.6 F 67 18 174/62 H 97 07/30/18 06:00 07/30/18 06:00 07/30/18 06:00 07/30/18 06:00 07/29/18 20:10 lungs clear cvs s1s2 rr abd soft, not tender, no bruit ext no edema neuro a+ox3 CBC, BMP 07/29/18 05:30 07/29/18 05:30 Current Medications Generic Name Dose Route Start Last Admin Trade Name Freq PRN Reason Stop Dose Admin Acetaminophen 650 mg 07/28/18 14:09 Tylenol - PO Q6H PRN PAIN LEVEL 1-5 Aspirin 81 mg 07/29/18 10:00 07/29/18 10:45 Asa - PO 81 mg DAILY [facility] Administration Atorvastatin Calcium 20 mg 07/28/18 22:00 07/29/18 21:45 Lipitor - PO 20 mg HS [facility] Administration Bupropion HCl 150 mg 07/29/18 10:00 07/29/18 10:44 Wellbutrin Xl - PO 150 mg DAILY [facility] Administration Donepezil HCl 10 mg 07/30/18 10:00 Aricept - PO DAILY [facility] Ferrous Sulfate 325 mg 07/29/18 10:00 07/29/18 10:45 Feosol - PO 325 mg DAILY [facility] Administration Furosemide 40 mg 07/29/18 14:00 07/30/18 06:47 Lasix Injection - IVPUSH 40 mg BID@0600,1400 [facility] Administration Heparin Sodium (Porcine) 5,000 unit 07/28/18 22:00 07/29/18 21:45 Heparin - SQ 5,000 unit BID [facility] Administration Hydralazine HCl 50 mg 07/28/18 14:15 07/30/18 06:47 Apresoline - PO 50 mg TID [facility] Administration Nitroglycerin/Dextrose 25 mg in 250 mls @ 6 mls/hr 07/28/18 11:00 07/29/18 15 :00 Nitroglycerin 25mg/D5w 250ml IVPB 10 mcg/min TITR [facility] 6 mls/hr Titration 10 MCG/MIN Insulin Aspart 1 vial 07/28/18 16:30 07/30/18 06:33 Novolog Vial Sliding Scale - SQ Not Given ACHS [facility] Protocol Insulin Detemir 14 units 07/30/18 08:00 Levemir Vial SQ DAILY@0800 [facility] Labetalol HCl 300 mg 07/29/18 10:45 07/29/18 21:45 Normodyne - PO 300 mg BID [facility] Administration Ondansetron HCl 4 mg 07/29/18 11:51 07/29/18 11:57 Zofran Injection IVPUSH 4 mg Q6H PRN Administration NAUSEA AND/OR VOMITING Pancrelipase 1 cap 07/28/18 17:30 07/29/18 17:[address] 36,000 Units Capsule PO 1 cap TIDCM [facility] Administration Pramipexole Dihydrochloride 1 mg 07/29/18 22:00 07/29/18 21:46 Mirapex - PO 1 mg HS [facility] Administration Impression 1. JASPER 2. fluid overload 3. HLD 4. shortness of breath 5. HTN 6. DM 7. proteinuria 8. chest pain Impression - check spep - renal function is improving - edema is improving - reduce lasix -trial of aldactone - serologies negative from last visit - pt has allergy to ARB, unable to start MV
--- NOTE | 2018-07-30 10:14 | PN ---
Progress Note, Physician Chief Complaint: Pneumonia Acute on Chronic CHF History of Present Illness: NAD feeling better Has Purwick catheter - Current Medication List Current Medications: Active Medications Acetaminophen (Tylenol -) 650 mg PO Q6H PRN PRN Reason: PAIN LEVEL 1-5 Aspirin (Asa -) 81 mg PO DAILY [facility] Last Admin: 07/29/18 10:45 Dose: 81 mg Atorvastatin Calcium (Lipitor -) 20 mg PO HS [facility] Last Admin: 07/29/18 21:45 Dose: 20 mg Bupropion HCl (Wellbutrin Xl -) 150 mg PO DAILY [facility] Last Admin: 07/29/18 10:44 Dose: 150 mg Donepezil HCl (Aricept -) 10 mg PO DAILY [facility] Ferrous Sulfate (Feosol -) 325 mg PO DAILY [facility] Last Admin: 07/29/18 10:45 Dose: 325 mg Furosemide (Lasix Injection -) 40 mg IVPUSH BID@0600,1400 [facility] Last Admin: 07/30/18 06:47 Dose: 40 mg Heparin Sodium (Porcine) (Heparin -) 5,000 unit SQ BID [facility] Last Admin: 07/29/18 21:45 Dose: 5,000 unit Hydralazine HCl (Apresoline -) 50 mg PO TID [facility] Last Admin: 07/30/18 06:47 Dose: 50 mg Nitroglycerin/Dextrose (Nitroglycerin 25mg/D5w 250ml) 25 mg in 250 mls @ 6 mls/ hr IVPB TITR [facility] Last Titration: 07/29/18 15:00 Dose: 10 mcg/min, 6 mls/hr Insulin Aspart (Novolog Vial Sliding Scale -) 1 vial SQ ACHS [facility]; Protocol Last Admin: 07/30/18 06:33 Dose: Not Given Insulin Detemir (Levemir Vial) 14 units SQ DAILY@0800 [facility] Labetalol HCl (Normodyne -) 300 mg PO BID [facility] Last Admin: 07/29/18 21:45 Dose: 300 mg Ondansetron HCl (Zofran Injection) 4 mg IVPUSH Q6H PRN PRN Reason: NAUSEA AND/OR VOMITING Last Admin: 07/29/18 11:57 Dose: 4 mg Pancrelipase (Creon Dr 36,000 Units Capsule) 1 cap PO TIDCM [facility] Last Admin: 07/29/18 17:34 Dose: 1 cap Pramipexole Dihydrochloride (Mirapex -) 1 mg PO HS [facility] Last Admin: 07/29/18 21:46 Dose: 1 mg Spironolactone (Aldactone -) 25 mg PO DAILY [facility] - Objective Vital Signs: Vital Signs Temperature 98.9 F 07/30/18 09:42 Pulse Rate 67 07/30/18 09:42 Respiratory Rate 18 07/30/18 09:42 Blood Pressure 176/64 H 07/30/18 09:42 O2 Sat by Pulse Oximetry (%) 97 07/29/18 20:10 Constitutional: Yes: Well Nourished, No Distress, Calm Cardiovascular: Yes: Regular Rate and Rhythm Respiratory: Yes: Regular Gastrointestinal: Yes: Normal Bowel Sounds, Soft Genitourinary: Yes: Other (Purwick catheter) Musculoskeletal: Yes: Muscle Weakness Extremities: Yes: WNL Edema: Yes Peripheral Pulses WNL: No Neurological: Yes: Alert, Oriented Psychiatric: Yes: Alert, Oriented Labs: CBC, BMP 07/29/18 05:30 07/29/18 05:30 Problem List - Problems (1) Acute on chronic diastolic (congestive) heart failure Assessment/Plan: -Seen by cardiology -being aggressively diuresed -IV furosemide 40 mg bid -On Spironolactone -I&O's Code(s): I50.33 - ACUTE ON CHRONIC DIASTOLIC (CONGESTIVE) HEART FAILURE (2) HTN (hypertension) Assessment/Plan: -Metoprolol discontinued -Started on Labetalol 300 mg po bid -On Hydralazine 50 mg po tid -IV Nitro discontinued Code(s): I10 - ESSENTIAL (PRIMARY) HYPERTENSION (3) Chest pain Assessment/Plan: -resolved -trops negative -tele monitoring Code(s): R07.9 - CHEST PAIN, UNSPECIFIED Qualifiers: Chest pain type: unspecified Qualified Code(s): R07.9 - Chest pain, unspecified (4) Anemia Assessment/Plan: -chronic -monitor trend Code(s): D64.9 - ANEMIA, UNSPECIFIED Qualifiers: Anemia type: iron deficiency (5) Diabetes Assessment/Plan: -Last A1c at 10.4 in 04/2018 -repeat A1c -BGM ACHS -Diabetic diet -Levemir restarted -Novolog sliding scale Code(s): E11.9 - TYPE 2 DIABETES MELLITUS WITHOUT COMPLICATIONS Qualifiers: Diabetes mellitus type: type 2 Assessment/Plan see problem list Physical therapy
[2018-07-30] MEDS: INSULIN (LEVEMIR) 100 UNITS/ML UNITS SQ SCH (10:18)
[2018-07-30] MEDS: HEPARIN NA (PORCINE) 5,000 UNITS/ML 1ML VIAL SQ SCH ×2 (10:18→21:52)
[2018-07-30] MEDS: FERROUS SO4 325 MG TABLET (FP) PO SCH (10:19)
[2018-07-30] MEDS: ASPIRIN 81 MG CHEWABLE TABLETS PO SCH (10:19)
[2018-07-30] MEDS: LABETALOL HCL 100 MG TABLET (FP) PO SCH ×2 (10:19→21:51)
[2018-07-30] MEDS: DONEPEZIL HCL 10 MG TABLET (FP) PO SCH (10:20)
[2018-07-30] MEDS: LIPASE/PROTEASE/AMYLASE 36,000 UNIT CAPSULE PO SCH ×3 (10:20→18:09)
[2018-07-30] MEDS: SPIRONOLACTONE 25 MG TABLET (FP) PO SCH (10:20)
[2018-07-30] MEDS: ACETAMINOPHEN 325 MG TABLET (FP) PO PRN (10:22)
[2018-07-30] MEDS: NITROGLYCERIN 25MG/D5W 250ML 25 MG/250 ML ML IVPB SCH (12:53)
[2018-07-30] MEDS: ATORVASTATIN CA 20 MG TABLET (FP) PO SCH (21:51)
[2018-07-30] MEDS: PRAMIPEXOLE DIHYDROCHLORIDE 0.5 MG TABLET PO SCH (21:51)
[2018-07-31] MEDS ORDERED: cloNIDine HCL 0.1 MG TABLET PO ONE (05:41)
[2018-07-31] MEDS: hydrALAZINE HCL 25 MG TABLET (FP) PO SCH ×3 (05:55→23:00)
[2018-07-31] MEDS: ONDANSETRON 4 MG/2 ML VIAL IVPUSH PRN ×2 (05:55→22:59)
[2018-07-31] MEDS: FUROSEMIDE 40 MG/4 ML INJECTABLE VIAL IVPUSH SCH (05:55)
[2018-07-31] MEDS: INSULIN SLIDING SCALE (NOVOLOG) 1 VIAL SQ SCH ×4 (06:03→23:31)
[2018-07-31 07:35] LABS: BASO % 0.6 % (0-2.0); EOS % 3.4 % (0-4.5); HEMATOCRIT 26.7 % (32.4-45.2); HEMOGLOBIN 8.9 GM/dL (10.7-15.3); LYMPH % 22.3 % (8-40); MCH 26.4 pg (25.7-33.7); MCHC 33.2 g/dl (32.0-36.0); MEAN CELL VOLUME 79.7 fl (80-96); MEAN PLT VOLUME 7.9 fl (7.5-11.1); NEUT % 58.7 % (42.8-82.8); PLATELET COUNT 368 K/MM3 (134-434); RBC 3.36 M/mm3 (3.60-5.2); RDW 19.2 % (11.6-15.6); WHITE BLOOD COUNT 6.4 K/mm3 (4.0-10.0)
[2018-07-31 07:46] LABS: CALCIUM 8.6 mg/dL (8.5-10.1); CREATININE 1.5 mg/dL (0.55-1.3)
[2018-07-31] MEDS: LIPASE/PROTEASE/AMYLASE 36,000 UNIT CAPSULE PO SCH ×3 (08:07→19:07)
--- NOTE | 2018-07-31 09:27 | PN ---
Progress Note (short form) - Note Progress Note: RENAL pt denies complaints Last Vital Signs Temp Pulse Resp BP Pulse Ox 99.1 F 61 20 175/63 H 97 07/31/18 06:00 07/31/18 07:02 07/31/18 07:02 07/31/18 07:02 07/30/18 20:45 lungs clear cvs s1s2 rr abd soft, not tender, no bruit ext no edema neuro a+ox3 CBC, BMP 07/31/18 05:30 07/31/18 05:30 Current Medications Generic Name Dose Route Start Last Admin Trade Name Freq PRN Reason Stop Dose Admin Acetaminophen 650 mg 07/28/18 14:09 07/30/18 10:22 Tylenol - PO 650 mg Q6H PRN Administration PAIN LEVEL 1-5 Aspirin 81 mg 07/29/18 10:00 07/30/18 10:19 Asa - PO 81 mg DAILY [facility] Administration Atorvastatin Calcium 20 mg 07/28/18 22:00 07/30/18 21:51 Lipitor - PO 20 mg HS [facility] Administration Bupropion HCl 150 mg 07/29/18 10:00 07/30/18 10:20 Wellbutrin Xl - PO 150 mg DAILY [facility] Administration Donepezil HCl 10 mg 07/30/18 10:00 07/30/18 10:20 Aricept - PO 10 mg DAILY [facility] Administration Ferrous Sulfate 325 mg 07/29/18 10:00 07/30/18 10:19 Feosol - PO 325 mg DAILY [facility] Administration Furosemide 40 mg 07/29/18 14:00 07/31/18 05:55 Lasix Injection - IVPUSH 40 mg BID@0600,1400 [facility] Administration Heparin Sodium (Porcine) 5,000 unit 07/28/18 22:00 07/30/18 21:52 Heparin - SQ 5,000 unit BID [facility] Administration Hydralazine HCl 50 mg 07/28/18 14:15 07/31/18 05:55 Apresoline - PO 50 mg TID [facility] Administration Insulin Aspart 1 vial 07/28/18 16:30 07/31/18 06:03 Novolog Vial Sliding Scale - SQ Not Given ACHS [facility] Protocol Insulin Detemir 14 units 07/30/18 08:00 07/30/18 10:18 Levemir Vial SQ 14 units DAILY@0800 [facility] Administration Labetalol HCl 300 mg 07/29/18 10:45 07/30/18 21:51 Normodyne - PO 300 mg BID [facility] Administration Ondansetron HCl 4 mg 07/29/18 11:51 07/31/18 05:55 Zofran Injection IVPUSH 4 mg Q6H PRN Administration NAUSEA AND/OR VOMITING Pancrelipase 1 cap 07/28/18 17:30 07/30/18 18:[address] 36,000 Units Capsule PO 1 cap TIDCM [facility] Administration Pramipexole Dihydrochloride 1 mg 07/29/18 22:00 07/30/18 21:51 Mirapex - PO 1 mg HS [facility] Administration Spironolactone 25 mg 07/30/18 10:00 07/30/18 10:20 Aldactone - PO 25 mg DAILY [facility] Administration Impression 1. JASPER 2. fluid overload 3. HLD 4. shortness of breath 5. HTN 6. DM 7. proteinuria 8. chest pain Impression - check spep - renal function is improving - edema is improving - reduce lasix -trial of aldactone for proteinuria reduction and BP - serologies negative from last visit - pt has allergy to ARB, unable to start MV
--- NOTE | 2018-07-31 10:46 | PN ---
Progress Note, Physician Chief Complaint: Pneumonia Acute on Chronic CHF History of Present Illness: NAD feeling better Has Purwick catheter BP still running high BUN/Cr gradually rising Seen by Neprhology - Current Medication List Current Medications: Active Medications Acetaminophen (Tylenol -) 650 mg PO Q6H PRN PRN Reason: PAIN LEVEL 1-5 Last Admin: 07/30/18 10:22 Dose: 650 mg Amlodipine Besylate (Norvasc -) 5 mg PO DAILY [facility] Aspirin (Asa -) 81 mg PO DAILY [facility] Last Admin: 07/30/18 10:19 Dose: 81 mg Atorvastatin Calcium (Lipitor -) 20 mg PO HS [facility] Last Admin: 07/30/18 21:51 Dose: 20 mg Bupropion HCl (Wellbutrin Xl -) 150 mg PO DAILY [facility] Last Admin: 07/30/18 10:20 Dose: 150 mg Donepezil HCl (Aricept -) 10 mg PO DAILY [facility] Last Admin: 07/30/18 10:20 Dose: 10 mg Ferrous Sulfate (Feosol -) 325 mg PO DAILY [facility] Last Admin: 07/30/18 10:19 Dose: 325 mg Furosemide (Lasix Injection -) 40 mg IVPUSH BID@0600,1400 [facility] Last Admin: 07/31/18 05:55 Dose: 40 mg Heparin Sodium (Porcine) (Heparin -) 5,000 unit SQ BID [facility] Last Admin: 07/30/18 21:52 Dose: 5,000 unit Hydralazine HCl (Apresoline -) 50 mg PO TID [facility] Last Admin: 07/31/18 05:55 Dose: 50 mg Insulin Aspart (Novolog Vial Sliding Scale -) [address] [facility]; Protocol Last Admin: 07/31/18 06:03 Dose: Not Given Insulin Detemir (Levemir Vial) 14 units SQ DAILY@0800 [facility] Last Admin: 07/30/18 10:18 Dose: 14 units Labetalol HCl (Normodyne -) 300 mg PO BID [facility] Last Admin: 07/30/18 21:51 Dose: 300 mg Ondansetron HCl (Zofran Injection) 4 mg IVPUSH Q6H PRN PRN Reason: NAUSEA AND/OR VOMITING Last Admin: 07/31/18 05:55 Dose: 4 mg Pancrelipase (Creon Dr 36,000 Units Capsule) 1 cap PO TIDCM [facility] Last Admin: 07/30/18 18:09 Dose: 1 cap Pramipexole Dihydrochloride (Mirapex -) 1 mg PO HS [facility] Last Admin: 07/30/18 21:51 Dose: 1 mg Spironolactone (Aldactone -) 25 mg PO DAILY [facility] Last Admin: 07/30/18 10:20 Dose: 25 mg - Objective Vital Signs: Vital Signs Temperature 99.1 F 07/31/18 06:00 Pulse Rate 61 07/31/18 07:02 Respiratory Rate 20 07/31/18 07:02 Blood Pressure 175/63 H 07/31/18 07:02 O2 Sat by Pulse Oximetry (%) 97 07/30/18 20:45 Constitutional: Yes: Well Nourished, No Distress, Calm Cardiovascular: Yes: Regular Rate and Rhythm Respiratory: Yes: Regular Gastrointestinal: Yes: Normal Bowel Sounds, Soft Genitourinary: Yes: Incontinence Musculoskeletal: Yes: Muscle Weakness Extremities: Yes: WNL Edema: No Peripheral Pulses WNL: Yes Neurological: Yes: Alert, Oriented Psychiatric: Yes: Alert, Oriented Labs: CBC, BMP 07/31/18 05:30 07/31/18 05:30 Problem List - Problems (1) Acute on chronic diastolic (congestive) heart failure Assessment/Plan: -Seen by cardiology -being aggressively diuresed -Change IV furosemide 40 mg to once daily -On Spironolactone -I&O's Code(s): I50.33 - ACUTE ON CHRONIC DIASTOLIC (CONGESTIVE) HEART FAILURE (2) HTN (hypertension) Assessment/Plan: -Metoprolol discontinued -Started on Labetalol 300 mg po bid -On Hydralazine 50 mg po tid -Started on amlodipine 5 mg po daily Code(s): I10 - ESSENTIAL (PRIMARY) HYPERTENSION (3) Chest pain Assessment/Plan: -resolved -trops negative -tele monitoring Code(s): R07.9 - CHEST PAIN, UNSPECIFIED Qualifiers: Chest pain type: unspecified Qualified Code(s): R07.9 - Chest pain, unspecified (4) Anemia Assessment/Plan: -chronic -monitor trend Code(s): D64.9 - ANEMIA, UNSPECIFIED Qualifiers: Anemia type: iron deficiency (5) Diabetes Assessment/Plan: -Last A1c at 10.4 in 04/2018 -repeat A1c 6.6 -BGM ACHS -Diabetic diet -Levemir -Novolog sliding scale Code(s): E11.9 - TYPE 2 DIABETES MELLITUS WITHOUT COMPLICATIONS Qualifiers: Diabetes mellitus type: type 2 (6) CKD (chronic kidney disease) Assessment/Plan: -Monitor Cr trend -Seen by nephrology Code(s): N18.9 - CHRONIC KIDNEY DISEASE, UNSPECIFIED Assessment/Plan see problem list Physical therapy
[2018-07-31] MEDS ORDERED: PT OWN MED DRAWER 7, Y5N ONE (11:19)
--- NOTE | 2018-07-31 11:41 | PN ---
Progress Note, Physician Chief Complaint: Feels much better LE edema improved History of Present Illness: 78 year old woman with a PMHx of HTN, DM, HLD, GI bleeding, diverticulosis, anemia, dementia, Parkinson's disease and pneumonia in April 2018 admitted for worsening SOB and leg edema due to acute on chronic diastolic CHF and hypoalbuminemia leading to 3rd spacing including pleural effusions now admitted with c/o worsening sob and chest tightness, LE edema. Noted to have JASMIN. Lasix recently increased to 80mg am 40mg pm pt seen and examined today in nad. denies any further chest tightness. still feels sob especially when lying flat, still has b/l LE edema. BP was uncontrolled. Repeat echocardiogram 06/02/2018 showed normal LV size, wall motion and systolic function. LVEF = 60-65%. Normal RV. Normal LA and RA in size. No significant valvular abnormalities. Minimal pericardial effusion. - Current Medication List Current Medications: Active Medications Acetaminophen (Tylenol -) 650 mg PO Q6H PRN PRN Reason: PAIN LEVEL 1-5 Last Admin: 07/30/18 10:22 Dose: 650 mg Amlodipine Besylate (Norvasc -) 5 mg PO DAILY [facility] Aspirin (Asa -) 81 mg PO DAILY [facility] Last Admin: 07/30/18 10:19 Dose: 81 mg Atorvastatin Calcium (Lipitor -) 20 mg PO HS [facility] Last Admin: 07/30/18 21:51 Dose: 20 mg Bupropion HCl (Wellbutrin Xl -) 150 mg PO DAILY [facility] Last Admin: 07/30/18 10:20 Dose: 150 mg Donepezil HCl (Aricept -) 10 mg PO DAILY [facility] Last Admin: 07/30/18 10:20 Dose: 10 mg Ferrous Sulfate (Feosol -) 325 mg PO DAILY [facility] Last Admin: 07/30/18 10:19 Dose: 325 mg Furosemide (Lasix Injection -) 40 mg IVPUSH DAILY [facility] Heparin Sodium (Porcine) (Heparin -) 5,000 unit SQ BID [facility] Last Admin: 07/30/18 21:52 Dose: 5,000 unit Hydralazine HCl (Apresoline -) 50 mg PO TID [facility] Last Admin: 07/31/18 05:55 Dose: 50 mg Insulin Aspart (Novolog Vial Sliding Scale -) 1 vial SQ ACH[facility]; Protocol Last Admin: 07/31/18 06:03 Dose: Not Given Insulin Detemir (Levemir Vial) 14 units SQ DAILY@0800 [facility] Last Admin: 07/30/18 10:18 Dose: 14 units Labetalol HCl (Normodyne -) 300 mg PO BID [facility] Last Admin: 07/30/18 21:51 Dose: 300 mg Ondansetron HCl (Zofran Injection) 4 mg IVPUSH Q6H PRN PRN Reason: NAUSEA AND/OR VOMITING Last Admin: 07/31/18 05:55 Dose: 4 mg Pancrelipase (Creon Dr 36,000 Units Capsule) 1 cap PO TIDCM [facility] Last Admin: 07/30/18 18:09 Dose: 1 cap Pramipexole Dihydrochloride (Mirapex -) 1 mg PO HS [facility] Last Admin: 07/30/18 21:51 Dose: 1 mg Spironolactone (Aldactone -) 25 mg PO DAILY [facility] Last Admin: 07/30/18 10:20 Dose: 25 mg - Objective Vital Signs: Vital Signs Temperature 99.1 F 07/31/18 06:00 Pulse Rate 61 07/31/18 07:02 Respiratory Rate 20 07/31/18 07:02 Blood Pressure 175/63 H 07/31/18 07:02 O2 Sat by Pulse Oximetry (%) 97 07/30/18 20:45 Constitutional: Yes: No Distress Neck: Yes: Supple Cardiovascular: Yes: Regular Rate and Rhythm Respiratory: Yes: CTA Bilaterally Extremities: Yes: WNL Edema: LLE: Trace, RLE: Trace Labs: CBC, BMP 07/31/18 05:30 07/31/18 05:30 Assessment/Plan 78 year old woman with a PMHx of HTN, DM, HLD, GI bleeding, diverticulosis, anemia, dementia, Parkinson's disease and pneumonia in April 2018 admitted for worsening SOB and leg edema due to acute on chronic diastolic CHF and hypoalbuminemia leading to 3rd spacing including pleural effusions now admitted with c/o worsening sob and chest tightness, LE edema. Noted to have JASMIN. Lasix recently increased to 80mg am 40mg pm pt seen and examined today in nad. denies any further chest tightness. still feels sob especially when lying flat, still has b/l LE edema. BP was uncontrolled. Repeat echocardiogram 06/02/2018 showed normal LV size, wall motion and systolic function. LVEF = 60-65%. Normal RV. Normal LA and RA in size. No significant valvular abnormalities. Minimal pericardial effusion. Dyspnea and edema: multifactorial -component of acute on chronic diastolic CHF in the setting of low oncotic pressure (severe hypoalbuminemia) leading to third spacing and anasarca including pleural effusion and LE edema -volume status improving would consider changing to PO diuretic torsemide 20mg daily -monitor strict I/Os and daily weights -monitor bun/creat, electrolytes, and replete as needed -Nutritional support Hypertension- -reported allergy to valsartan and would not start jasper-i/arb in setting of JASMIN -Continue current regimen. Appears amlodipine added today so will see bp trend after addition
[2018-07-31] MEDS: HEPARIN NA (PORCINE) 5,000 UNITS/ML 1ML VIAL SQ SCH ×2 (12:08→22:59)
[2018-07-31] MEDS: ASPIRIN 81 MG CHEWABLE TABLETS PO SCH (12:08)
[2018-07-31] MEDS: SPIRONOLACTONE 25 MG TABLET (FP) PO SCH (12:08)
[2018-07-31] MEDS: DONEPEZIL HCL 10 MG TABLET (FP) PO SCH (12:08)
[2018-07-31] MEDS: FERROUS SO4 325 MG TABLET (FP) PO SCH (12:08)
[2018-07-31] MEDS: amLODIPine BESYLATE 5 MG TABLET (FP) PO SCH (12:08)
[2018-07-31] MEDS: LABETALOL HCL 100 MG TABLET (FP) PO SCH (12:30)
[2018-07-31] MEDS: INSULIN (LEVEMIR) 100 UNITS/ML UNITS SQ SCH (14:40)
[2018-07-31] MEDS: LABETALOL HCL 200 MG TABLET (FP) PO SCH ×2 (14:41→23:00)
[2018-07-31] MEDS: PRAMIPEXOLE DIHYDROCHLORIDE 0.5 MG TABLET PO SCH (22:59)
[2018-07-31] MEDS: ATORVASTATIN CA 20 MG TABLET (FP) PO SCH (22:59)
[2018-08-01] MEDS: hydrALAZINE HCL 25 MG TABLET (FP) PO SCH ×3 (06:59→22:26)
[2018-08-01] MEDS: INSULIN SLIDING SCALE (NOVOLOG) 1 VIAL SQ SCH ×4 (06:59→22:29)
[2018-08-01 07:04] LABS: BASO % 0.8 % (0-2.0); EOS % 2.9 % (0-4.5); HEMATOCRIT 24.9 % (32.4-45.2); HEMOGLOBIN 8.4 GM/dL (10.7-15.3); LYMPH % 22.5 % (8-40); MCH 26.6 pg (25.7-33.7); MCHC 33.6 g/dl (32.0-36.0); NEUT % 59.8 % (42.8-82.8); RBC 3.15 M/mm3 (3.60-5.2); RDW 19.9 % (11.6-15.6); WHITE BLOOD COUNT 8.2 K/mm3 (4.0-10.0)
[2018-08-01 07:18] LABS: CALCIUM 8.9 mg/dL (8.5-10.1); CREATININE 1.5 mg/dL (0.55-1.3); POTASSIUM 3.9 mmol/L (3.5-5.1)
[2018-08-01] MEDS: INSULIN (LEVEMIR) 100 UNITS/ML UNITS SQ SCH (08:49)
[2018-08-01] MEDS ORDERED: FUROSEMIDE 40 MG/4 ML INJECTABLE VIAL IVPUSH SCH (10:00)
[2018-08-01] MEDS: LABETALOL HCL 200 MG TABLET (FP) PO SCH ×2 (10:36→22:23)
[2018-08-01] MEDS: DONEPEZIL HCL 10 MG TABLET (FP) PO SCH (10:36)
[2018-08-01] MEDS: ASPIRIN 81 MG CHEWABLE TABLETS PO SCH (10:36)
[2018-08-01] MEDS: FERROUS SO4 325 MG TABLET (FP) PO SCH (10:36)
[2018-08-01] MEDS: SPIRONOLACTONE 25 MG TABLET (FP) PO SCH (10:37)
[2018-08-01] MEDS: HEPARIN NA (PORCINE) 5,000 UNITS/ML 1ML VIAL SQ SCH ×2 (10:37→22:22)
[2018-08-01] MEDS: amLODIPine BESYLATE 5 MG TABLET (FP) PO SCH (10:37)
[2018-08-01] MEDS: LIPASE/PROTEASE/AMYLASE 36,000 UNIT CAPSULE PO SCH ×3 (10:38→18:05)
[2018-08-01 11:09] LABS: MEAN PLT VOLUME 8.4 fl (7.5-11.1)
[2018-08-01 11:10] LABS: PLATELET COUNT 348 K/MM3 (134-434)
[2018-08-01 11:13] LABS: PLATELET ESTIMATE NORMAL
[2018-08-01] MEDS ORDERED: PT OWN MED DRAWER 7, Y5N ONE ×2 (11:37→14:15)
--- NOTE | 2018-08-01 12:19 | PN ---
Progress Note, Physician Chief Complaint: patient feeling better leg edema is reducing will change iv lasix - Current Medication List Current Medications: Active Medications Acetaminophen (Tylenol -) 650 mg PO Q6H PRN PRN Reason: PAIN LEVEL 1-5 Last Admin: 07/30/18 10:22 Dose: 650 mg Amlodipine Besylate (Norvasc -) 5 mg PO DAILY [facility] Last Admin: 08/01/18 10:37 Dose: 5 mg Aspirin (Asa -) 81 mg PO DAILY [facility] Last Admin: 08/01/18 10:36 Dose: 81 mg Atorvastatin Calcium (Lipitor -) 20 mg PO HS [facility] Last Admin: 07/31/18 22:59 Dose: 20 mg Bupropion HCl (Wellbutrin Xl -) 150 mg PO DAILY [facility] Last Admin: 08/01/18 10:36 Dose: 150 mg Donepezil HCl (Aricept -) 10 mg PO DAILY [facility] Last Admin: 08/01/18 10:36 Dose: 10 mg Ferrous Sulfate (Feosol -) 325 mg PO DAILY [facility] Last Admin: 08/01/18 10:36 Dose: 325 mg Furosemide (Lasix Injection -) 40 mg IVPUSH DAILY [facility] Heparin Sodium (Porcine) (Heparin -) 5,000 unit SQ BID [facility] Last Admin: 08/01/18 10:37 Dose: 5,000 unit Hydralazine HCl (Apresoline -) 50 mg PO TID [facility] Last Admin: 08/01/18 06:59 Dose: 50 mg Insulin Aspart (Novolog Vial Sliding Scale -) 1 vial SQ [facility]; Protocol Last Admin: 08/01/18 06:59 Dose: Not Given Insulin Detemir (Levemir Vial) 14 units SQ DAILY@0800 [facility] Last Admin: 08/01/18 08:49 Dose: 14 units Labetalol HCl (Normodyne -) 300 mg PO BID [facility] Last Admin: 08/01/18 10:36 Dose: 300 mg Ondansetron HCl (Zofran Injection) 4 mg IVPUSH Q6H PRN PRN Reason: NAUSEA AND/OR VOMITING Last Admin: 07/31/18 22:59 Dose: 4 mg Pancrelipase (Creon Dr 36,000 Units Capsule) 1 cap PO TIDCM [facility] Last Admin: 08/01/18 10:38 Dose: 1 cap Pramipexole Dihydrochloride (Mirapex -) 1 mg PO HS [facility] Last Admin: 07/31/18 22:59 Dose: 1 mg Spironolactone (Aldactone -) 25 mg PO DAILY [facility] Last Admin: 08/01/18 10:37 Dose: 25 mg - Objective Vital Signs: Vital Signs Temperature 99.4 F 08/01/18 05:00 Pulse Rate 59 L 08/01/18 05:00 Respiratory Rate 18 08/01/18 05:00 Blood Pressure 156/62 08/01/18 05:00 O2 Sat by Pulse Oximetry (%) 96 07/31/18 20:27 Constitutional: Yes: Calm, Thin Cardiovascular: Yes: Regular Rate and Rhythm, S1, S2 Respiratory: Yes: Diminished Gastrointestinal: Yes: Normal Bowel Sounds, Soft Edema: Yes Edema: LLE: Trace, RLE: Trace Labs: CBC, BMP 08/01/18 05:30 08/01/18 05:30 Problem List - Problems (1) Acute on chronic diastolic (congestive) heart failure Assessment/Plan: iv lasix 40mg bid to iv lasix 40mg daily will change to oral torsemide if ok with renal cardiology consult-noted started on labetolol no ACEI or ARB daily weight down from 138 to 131 lbs down to 124 lbs hydralazine 50mg tid labetolol bid and aldactone added started on norvasc as well Code(s): I50.33 - ACUTE ON CHRONIC DIASTOLIC (CONGESTIVE) HEART FAILURE (2) Chest pain Assessment/Plan: chest pressure resolved echo telemetry statin 20mg Code(s): R07.9 - CHEST PAIN, UNSPECIFIED Qualifiers: Chest pain type: unspecified Qualified Code(s): R07.9 - Chest pain, unspecified (3) Diabetes Assessment/Plan: bgm sliding scale hgba1c 6.6 levemir on hold for now Code(s): E11.9 - TYPE 2 DIABETES MELLITUS WITHOUT COMPLICATIONS Qualifiers: Diabetes mellitus type: type 2 (4) Anemia Assessment/Plan: iron panel supplements Code(s): D64.9 - ANEMIA, UNSPECIFIED Qualifiers: Anemia type: iron deficiency (5) Depression Assessment/Plan: wellbutrin Code(s): F32.9 - MAJOR DEPRESSIVE DISORDER, SINGLE EPISODE, UNSPECIFIED
--- NOTE | 2018-08-01 12:25 | DS ---
Physical Examination Vital Signs: Vital Signs Temperature 99.4 F 08/01/18 05:00 Pulse Rate 59 L 08/01/18 05:00 Respiratory Rate 18 08/01/18 05:00 Blood Pressure 156/62 08/01/18 05:00 O2 Sat by Pulse Oximetry (%) 96 07/31/18 20:27 Constitutional: Yes: Calm Cardiovascular: Yes: Regular Rate and Rhythm, S1, S2 Respiratory: Yes: Diminished Gastrointestinal: Yes: Normal Bowel Sounds, Soft Edema: Yes Edema: LLE: Trace, RLE: Trace Neurological: Yes: Alert, Oriented Labs: CBC, BMP 08/01/18 05:30 08/01/18 05:30 Discharge Summary Reason For Visit: ACUTE KIDNEY INJURY, CONGESTIVE HEART FAILURE Current Active Problems CKD (chronic kidney disease) (Acute) Chest pain (Acute) Depression (Acute) Hospital Course: 78 yr old female with HTN,HLDcame in for chest pressure started last wednesday with shortness of breath, was dx with pneumonia and given abx july 25- cefuroxime, per records her lasix was also increase to 80mg in morning and 40mg in evening from 40mg po bid as on outpatient with metalozone 5mg daily in morning. pain on right side constant in nature and as pain in her back as well. she says after starting nitro her chest pain has slightly reduced in ER BNP 5800, and Cr 1.6 and BP 240/78 started iv nitrodrip and lasix 40mg given iv paitent admitted to telemetry floor for fluid overload iv lasix 40mg bid- renal and cardiology saw her nitro drip titrated off started on labetolol 300mg bid for BP hydralazine 50mg tid, aldadtone 25mg and now norvasc 5mg for BP control leg edema is decreasing lasix 40mg daily change to oral diuretic if ok with renal Condition: Improved - Instructions Disposition: VNS/HOME HEALTH CARE - Home Medications Comprehensive Discharge Medication List: Ambulatory Orders Aspirin [ASA -] 81 mg PO DAILY 09/09/15 Donepezil HCl 10 mg PO DAILY 02/01/18 Bupropion HCl [Wellbutrin Xl -] 150 mg PO DAILY #30 tab.sr.24h 02/09/18 Nifedipine ER [Procardia XL -] 60 mg PO DAILY #30 tab.er.24 02/09/18 Pantoprazole Sodium [Protonix -] 40 mg PO DAILY #30 tablet.ec 02/09/18 Lipase/Protease/Amylase [Elaine Sweeney 36,000 Units Capsule] 1 cap PO TIDCM #90 capsule. 04/24/18 Divalproex [Depakote -] 250 mg PO BID #30 tablet.ec MDD 2 05/09/18 Acetaminophen [Tylenol] 650 mg PO Q4H PRN 06/01/18 Cranberry Fruit Extract [Cranberry Extract] 1 gm PO DAILY 06/01/18 Furosemide [Lasix] 80 mg PO DAILY 06/01/18 Insulin Aspart [Novolog] 0 unit SQ ASDIR 06/01/18 Insulin Glargine,Hum.rec.anlog [Basaglar Kwikpen U-100] 10 unit SQ HS 06/01/18 Polyethylene Glycol 3350 [Miralax 119 gm Btl -] 17 gm PO DAILY 06/01/18 Pramipexole Di-HCl [Mirapex] 1 mg PO DAILY 06/01/18 Simvastatin 20 mg PO DAILY 06/01/18 Tramadol HCl 50 mg PO BID 06/01/18 hydrALAZINE HCL [Apresoline -] 50 mg PO TID 06/01/18 Ferrous Sulfate [Feosol] 325 mg PO BID ud 06/09/18 Furosemide [Lasix -] 40 mg PO BID@0600,1400 tablet 06/09/18 Heparin - 5,000 unit SQ BID vial 06/09/18 Insulin Sliding Scale [Novolog Vial Sliding Scale -] 1 vial SQ TIDAC units Metoclopramide HCl [Reglan -] 10 mg PO TIDAC tablet 06/09/18 Albuterol 0.083% Nebulizer Court [Ventolin 0.083% Nebulizer Soln -] 1 amp IN QID PRN 07/28/18 Cefuroxime Axetil [Cefuroxime] 250 mg PO BID 07/28/18 Furosemide [Lasix] 40 mg PO HS 07/28/18
--- NOTE | 2018-08-01 13:08 | PN ---
Progress Note, Physician History of Present Illness: Pt seen and examined at bedside. She is awake and alert. She denies shortness of breath. - Current Medication List Current Medications: Active Medications Acetaminophen (Tylenol -) 650 mg PO Q6H PRN PRN Reason: PAIN LEVEL 1-5 Last Admin: 07/30/18 10:22 Dose: 650 mg Amlodipine Besylate (Norvasc -) 5 mg PO DAILY [facility] Last Admin: 08/01/18 10:37 Dose: 5 mg Aspirin (Asa -) 81 mg PO DAILY [facility] Last Admin: 08/01/18 10:36 Dose: 81 mg Atorvastatin Calcium (Lipitor -) 20 mg PO HS [facility] Last Admin: 07/31/18 22:59 Dose: 20 mg Bupropion HCl (Wellbutrin Xl -) 150 mg PO DAILY [facility] Last Admin: 08/01/18 10:36 Dose: 150 mg Donepezil HCl (Aricept -) 10 mg PO DAILY [facility] Last Admin: 08/01/18 10:36 Dose: 10 mg Ferrous Sulfate (Feosol -) 325 mg PO DAILY [facility] Last Admin: 08/01/18 10:36 Dose: 325 mg Furosemide (Lasix Injection -) 40 mg IVPUSH DAILY [facility] Heparin Sodium (Porcine) (Heparin -) 5,000 unit SQ BID [facility] Last Admin: 08/01/18 10:37 Dose: 5,000 unit Hydralazine HCl (Apresoline -) 50 mg PO TID [facility] Last Admin: 08/01/18 06:59 Dose: 50 mg Insulin Aspart (Novolog Vial Sliding Scale -) 1 vial SQ [facility]; Protocol Last Admin: 08/01/18 06:59 Dose: Not Given Insulin Detemir (Levemir Vial) 14 units SQ DAILY@0800 [facility] Last Admin: 08/01/18 08:49 Dose: 14 units Labetalol HCl (Normodyne -) 300 mg PO BID [facility] Last Admin: 08/01/18 10:36 Dose: 300 mg Metoclopramide HCl (Reglan -) 10 mg PO TIDAC [facility] Pancrelipase (Creon Dr 36,000 Units Capsule) 1 cap PO TIDCM [facility] Last Admin: 08/01/18 10:38 Dose: 1 cap Pramipexole Dihydrochloride (Mirapex -) 1 mg PO HS [facility] Last Admin: 07/31/18 22:59 Dose: 1 mg Spironolactone (Aldactone -) 25 mg PO DAILY [facility] Last Admin: 08/01/18 10:37 Dose: 25 mg - Objective Vital Signs: Vital Signs Temperature 99.4 F 08/01/18 05:00 Pulse Rate 59 L 08/01/18 05:00 Respiratory Rate 18 08/01/18 05:00 Blood Pressure 156/62 08/01/18 05:00 O2 Sat by Pulse Oximetry (%) 96 07/31/18 20:27 Constitutional: Yes: Calm Eyes: Yes: Conjunctiva Clear HENT: Yes: Atraumatic Neck: Yes: Supple Cardiovascular: Yes: S1, S2 Respiratory: Yes: CTA Bilaterally Gastrointestinal: Yes: Normal Bowel Sounds, Soft Genitourinary: Yes: WNL Musculoskeletal: Yes: WNL Edema: Yes Edema: LLE: Trace, RLE: Trace Neurological: Yes: Oriented Psychiatric: Yes: Oriented Labs: CBC, BMP 08/01/18 05:30 08/01/18 05:30 Problem List - Problems (1) JASPER (acute kidney injury) Code(s): N17.9 - ACUTE KIDNEY FAILURE, UNSPECIFIED (2) Abdominal pain Code(s): R10.9 - UNSPECIFIED ABDOMINAL PAIN Qualifiers: Abdominal location: unspecified location Qualified Code(s): R10.9 - Unspecified abdominal pain (3) CHF (congestive heart failure) Code(s): I50.9 - HEART FAILURE, UNSPECIFIED Qualifiers: Heart failure type: unspecified Heart failure chronicity: acute Qualified Code(s): I50.9 - Heart failure, unspecified Assessment/Plan Current Medications Generic Name Dose Route Start Last Admin Trade Name Sandovalq PRN Reason Stop Dose Admin Acetaminophen 650 mg 07/28/18 14:09 07/30/18 10:22 Tylenol - PO 650 mg Q6H PRN Administration PAIN LEVEL 1-5 Amlodipine Besylate 5 mg 07/31/18 10:00 08/01/18 10:37 Norvasc - PO 5 mg DAILY [facility] Administration Aspirin 81 mg 07/29/18 10:00 08/01/18 10:36 Asa - PO 81 mg DAILY [facility] Administration Atorvastatin Calcium 20 mg 07/28/18 22:00 07/31/18 22:59 Lipitor - PO 20 mg HS [facility] Administration Bupropion HCl 150 mg 07/29/18 10:00 08/01/18 10:36 Wellbutrin Xl - PO 150 mg DAILY [facility] Administration Donepezil HCl 10 mg 07/30/18 10:00 08/01/18 10:36 Aricept - PO 10 mg DAILY [facility] Administration Ferrous Sulfate 325 mg 07/29/18 10:00 08/01/18 10:36 Feosol - PO 325 mg DAILY [facility] Administration Furosemide 40 mg 08/01/18 10:00 Lasix Injection - IVPUSH DAILY [facility] Heparin Sodium (Porcine) 5,000 unit 07/28/18 22:00 08/01/18 10:37 Heparin - SQ 5,000 unit BID [facility] Administration Hydralazine HCl 50 mg 07/28/18 14:15 08/01/18 06:59 Apresoline - PO 50 mg TID [facility] Administration Insulin Aspart 1 vial 07/28/18 16:30 08/01/18 06:59 Novolog Vial Sliding Scale - SQ Not Given ACHS [facility] Protocol Insulin Detemir 14 units 07/30/18 08:00 08/01/18 08:49 Levemir Vial SQ 14 units DAILY@0800 [facility] Administration Labetalol HCl 300 mg 07/31/18 12:15 08/01/18 10:36 Normodyne - PO 300 mg BID [facility] Administration Metoclopramide HCl 10 mg 08/01/18 16:30 Reglan - PO TIDAC [facility] Pancrelipase 1 cap 07/28/18 17:30 08/01/18 10:[address] 36,000 Units Capsule PO 1 cap TIDCM [facility] Administration Pramipexole Dihydrochloride 1 mg 07/29/18 22:00 07/31/18 22:59 Mirapex - PO 1 mg HS [facility] Administration Spironolactone 25 mg 07/30/18 10:00 08/01/18 10:37 Aldactone - PO 25 mg DAILY [facility] Administration Laboratory Tests 07/28/18 07/28/18 06:00 06:00 Urine Protein 1+ H Protein/Creatinin Ratio 4.350 Laboratory Tests 10/10/15 05/05/18 14:25 06:30 CARMEN M-Jacob Not observed DAVID Screen Negative c-ANCA <1:20 Proteinase 3 (PR3) <3.5 SS-A/Ro Antibody <0.2 p-ANCA <1:20 Atypical p-ANCA <1:20 SS-B/La Antibody <0.2 Myeloperoxidase Ab <9.0 Double Strand DNA Ab <1 Laboratory Tests 07/28/18 07/29/18 06:00 17:15 Protein/Creatinin Ratio 4.350 CARMEN M-Jacob Pending Impression 1. JASPER 2. fluid overload 3. HLD 4. shortness of breath 5. HTN 6. DM 7. proteinuria 8. chest pain Impression - follow spep - pt with nephrotic range proteinuria - will need to discuss kidney biopsy with family as pt wants her daughter involved. Will need to be off of asa for a week before the biopsy if they decide to do it. - cont lasix - serologies negative from last visit - pt has allergy to ARB, unable to start
--- NOTE | 2018-08-01 15:53 | PN ---
Progress Note, Physician Chief Complaint: The patient appears comfortable at the time of exam. She has improved leg edema and SOB. Complains of right lower rib cage pain. No shortness of breath, palpitation or dizziness. Telemetry reviewed, it showed bradycardia with VPCs. History of Present Illness: 78 year old woman with a PMHx of HTN, DM, HLD, GI bleeding, diverticulosis, anemia, dementia, Parkinson's disease and pneumonia in April 2018, previous admission in May 2018 for worsening SOB and leg edema due to acute on chronic diastolic CHF and hypoalbuminemia leading to 3rd spacing including pleural effusions now admitted with worsening sob and chest tightness, LE edema with evidence of JASPER. Repeat echocardiogram 06/02/2018 showed normal LV size, wall motion and systolic function. LVEF = 60-65%. Normal RV. Normal LA and RA in size. No significant valvular abnormalities. Minimal pericardial effusion. - Current Medication List Current Medications: Active Medications Acetaminophen (Tylenol -) 650 mg PO Q6H PRN PRN Reason: PAIN LEVEL 1-5 Last Admin: 07/30/18 10:22 Dose: 650 mg Amlodipine Besylate (Norvasc -) 5 mg PO DAILY [facility] Last Admin: 08/01/18 10:37 Dose: 5 mg Aspirin (Asa -) 81 mg PO DAILY [facility] Last Admin: 08/01/18 10:36 Dose: 81 mg Atorvastatin Calcium (Lipitor -) 20 mg PO HS [facility] Last Admin: 07/31/18 22:59 Dose: 20 mg Bupropion HCl (Wellbutrin Xl -) 150 mg PO DAILY [facility] Last Admin: 08/01/18 10:36 Dose: 150 mg Donepezil HCl (Aricept -) 10 mg PO DAILY [facility] Last Admin: 08/01/18 10:36 Dose: 10 mg Ferrous Sulfate (Feosol -) 325 mg PO DAILY [facility] Last Admin: 08/01/18 10:36 Dose: 325 mg Furosemide (Lasix Injection -) 40 mg IVPUSH DAILY [facility] Last Admin: 08/01/18 14:08 Dose: 40 mg Heparin Sodium (Porcine) (Heparin -) 5,000 unit SQ BID [facility] Last Admin: 08/01/18 10:37 Dose: 5,000 unit Hydralazine HCl (Apresoline -) 50 mg PO TID [facility] Last Admin: 08/01/18 14:34 Dose: 50 mg Insulin Aspart (Novolog Vial Sliding Scale -) 1 vial SQ ACHS [facility]; Protocol Last Admin: 08/01/18 14:08 Dose: 2 units Insulin Detemir (Levemir Vial) 14 units SQ DAILY@0800 [facility] Last Admin: 08/01/18 08:49 Dose: 14 units Labetalol HCl (Normodyne -) 300 mg PO BID [facility] Last Admin: 08/01/18 10:36 Dose: 300 mg Metoclopramide HCl (Reglan -) 10 mg PO TIDAC [facility] Pancrelipase (Elaine Sweeney 36,000 Units Capsule) 1 cap PO TIDCM [facility] Last Admin: 08/01/18 14:34 Dose: 1 cap Pramipexole Dihydrochloride (Mirapex -) 1 mg PO HS [facility] Last Admin: 07/31/18 22:59 Dose: 1 mg Spironolactone (Aldactone -) 25 mg PO DAILY [facility] Last Admin: 08/01/18 10:37 Dose: 25 mg - Objective Vital Signs: Vital Signs Temperature 99.4 F 08/01/18 05:00 Pulse Rate 59 L 08/01/18 05:00 Respiratory Rate 18 08/01/18 05:00 Blood Pressure 156/62 08/01/18 05:00 O2 Sat by Pulse Oximetry (%) 96 07/31/18 20:27 General: Well developed. Chronic ill. No acute distress. Head: Normocephalic. Atraumatic, Eyes: PERRLA, EOMI. Sclerae anicteric. Conjunctivae clear. Neck: Supple. No JVD. No bruits. Heart: Normal S1, S2: Regular rhythm and rate. No murmur. No gallop or rub. Lungs: Symmetrical air entry. Clear to auscultation. No crackles. No wheezing or rhonchi. Abdomen: Soft. Bowel sound positive. Non tender. No masses. Extremities: 1-2+ edema. No clubbing or cyanosis. Labs: CBC, BMP 08/01/18 05:30 08/01/18 05:30 Assessment/Plan 78 year old woman with a PMHx of HTN, DM, HLD, GI bleeding, diverticulosis, anemia, dementia, Parkinson's disease and pneumonia in April 2018, previous admission in May 2018 for worsening SOB and leg edema due to acute on chronic diastolic CHF and hypoalbuminemia leading to 3rd spacing including pleural effusions now admitted with worsening sob and chest tightness, LE edema with evidence of JASPER. Repeat echocardiogram 06/02/2018 showed normal LV size, wall motion and systolic function. LVEF = 60-65%. Normal RV. Normal LA and RA in size. No significant valvular abnormalities. Minimal pericardial effusion. 1) Dyspnea and edema: multifactorial -component of acute on chronic diastolic CHF in the setting of low oncotic pressure (severe hypoalbuminemia) leading to third spacing and anasarca including pleural effusion and LE edema -volume status improving would consider changing to PO diuretic torsemide 20mg daily -monitor I/Os and daily weights -monitor bun/creat, electrolytes, and replete as needed -Nutritional support 2) Hypertension- -reported allergy to valsartan and would not start jasper-i/arb in setting of JASMIN. -Reduce labetalol to 200 mg BID on discharge (bradycardia and questionable junctional rhythm). -Amlodipine added yesterday, may increase hydralazine for BP control. Out-patient cardiac follow up.
[2018-08-01] MEDS: METOCLOPRAMIDE HCL 10 MG TABLET (FP) PO SCH (18:03)
[2018-08-01] MEDS: PRAMIPEXOLE DIHYDROCHLORIDE 0.5 MG TABLET PO SCH (22:25)
[2018-08-01] MEDS: ATORVASTATIN CA 20 MG TABLET (FP) PO SCH (22:26)
[2018-08-02] MEDS: hydrALAZINE HCL 25 MG TABLET (FP) PO SCH ×2 (06:12→14:11)
[2018-08-02] MEDS: METOCLOPRAMIDE HCL 10 MG TABLET (FP) PO SCH ×3 (06:12→16:42)
[2018-08-02] MEDS: INSULIN SLIDING SCALE (NOVOLOG) 1 VIAL SQ SCH ×3 (06:13→16:44)
[2018-08-02 07:16] LABS: EOS % 3.6 % (0-4.5); HEMATOCRIT 25.8 % (32.4-45.2); HEMOGLOBIN 8.7 GM/dL (10.7-15.3); LYMPH % 18.2 % (8-40); MCH 26.7 pg (25.7-33.7); MCHC 33.6 g/dl (32.0-36.0); MEAN CELL VOLUME 79.5 fl (80-96); MEAN PLT VOLUME 7.9 fl (7.5-11.1); MONO % 12.5 % (3.8-10.2); NEUT % 64.7 % (42.8-82.8); PLATELET COUNT 370 K/MM3 (134-434); RBC 3.24 M/mm3 (3.60-5.2); RDW 19.9 % (11.6-15.6)
[2018-08-02 07:49] LABS: CALCIUM 8.7 mg/dL (8.5-10.1); CREATININE 1.4 mg/dL (0.55-1.3); POTASSIUM 4.1 mmol/L (3.5-5.1)
[2018-08-02] MEDS: LIPASE/PROTEASE/AMYLASE 36,000 UNIT CAPSULE PO SCH ×2 (08:30→12:46)
[2018-08-02] MEDS: INSULIN (LEVEMIR) 100 UNITS/ML UNITS SQ SCH (08:30)
--- NOTE | 2018-08-02 08:42 | PN ---
Progress Note, Physician - Current Medication List Current Medications: Active Medications Acetaminophen (Tylenol -) 650 mg PO Q6H PRN PRN Reason: PAIN LEVEL 1-5 Last Admin: 07/30/18 10:22 Dose: 650 mg Amlodipine Besylate (Norvasc -) 5 mg PO DAILY [facility] Last Admin: 08/01/18 10:37 Dose: 5 mg Aspirin (Asa -) 81 mg PO DAILY [facility] Last Admin: 08/01/18 10:36 Dose: 81 mg Atorvastatin Calcium (Lipitor -) 20 mg PO HS [facility] Last Admin: 08/01/18 22:26 Dose: 20 mg Bupropion HCl (Wellbutrin Xl -) 150 mg PO DAILY [facility] Last Admin: 08/01/18 10:36 Dose: 150 mg Donepezil HCl (Aricept -) 10 mg PO DAILY [facility] Last Admin: 08/01/18 10:36 Dose: 10 mg Ferrous Sulfate (Feosol -) 325 mg PO DAILY [facility] Last Admin: 08/01/18 10:36 Dose: 325 mg Furosemide (Lasix Injection -) 40 mg IVPUSH DAILY [facility] Last Admin: 08/01/18 14:08 Dose: 40 mg Heparin Sodium (Porcine) (Heparin -) 5,000 unit SQ BID [facility] Last Admin: 08/01/18 22:22 Dose: 5,000 unit Hydralazine HCl (Apresoline -) 50 mg PO TID [facility] Last Admin: 08/02/18 06:12 Dose: 50 mg Insulin Aspart (Novolog Vial Sliding Scale -) 1 vial SQ [facility]; Protocol Last Admin: 08/02/18 06:13 Dose: Not Given Insulin Detemir (Levemir Vial) 14 units SQ DAILY@0800 [facility] Last Admin: 08/01/18 08:49 Dose: 14 units Labetalol HCl (Normodyne -) 300 mg PO BID [facility] Last Admin: 08/01/18 22:23 Dose: 300 mg Metoclopramide HCl (Reglan -) 10 mg PO TIDAC [facility] Last Admin: 08/02/18 06:12 Dose: 10 mg Pancrelipase (Creon Dr 36,000 Units Capsule) 1 cap PO TIDCM [facility] Last Admin: 08/01/18 18:05 Dose: 1 cap Pramipexole Dihydrochloride (Mirapex -) 1 mg PO HS [facility] Last Admin: 08/01/18 22:25 Dose: 1 mg Spironolactone (Aldactone -) 25 mg PO DAILY [facility] Last Admin: 08/01/18 10:37 Dose: 25 mg - Objective Vital Signs: Vital Signs Temperature 99.0 F 08/02/18 05:00 Pulse Rate 78 08/02/18 05:00 Respiratory Rate 18 08/02/18 05:00 Blood Pressure 164/64 08/02/18 05:00 O2 Sat by Pulse Oximetry (%) 95 08/01/18 21:00 Labs: CBC, BMP 08/02/18 05:30 08/02/18 05:30 Assessment/Plan - Problems (1) Acute on chronic diastolic (congestive) heart failure Assessment/Plan: iv lasix 40mg bid to iv lasix 40mg daily will change to oral torsemide 20 cardiology consult-noted started on labetolol no ACEI or ARB daily weight down from 138 to 131 lbs down to 124 lbs hydralazine 50mg tid labetolol 200 bid and aldactone added started on norvasc as well Code(s): I50.33 - ACUTE ON CHRONIC DIASTOLIC (CONGESTIVE) HEART FAILURE (2) Chest pain Assessment/Plan: chest pressure resolved echo telemetry statin 20mg Code(s): R07.9 - CHEST PAIN, UNSPECIFIED Qualifiers: Chest pain type: unspecified Qualified Code(s): R07.9 - Chest pain, unspecified (3) Diabetes Assessment/Plan: bgm sliding scale hgba1c 6.6 levemir on hold for now Code(s): E11.9 - TYPE 2 DIABETES MELLITUS WITHOUT COMPLICATIONS Qualifiers: Diabetes mellitus type: type 2 (4) Anemia Assessment/Plan: iron panel supplements Code(s): D64.9 - ANEMIA, UNSPECIFIED Qualifiers: Anemia type: iron deficiency (5) Depression--dementia Assessment/Plan: welbutrin Code(s): F32.9 - MAJOR DEPRESSIVE DISORDER, SINGLE EPISODE, UNSPECIFIED PATIENT REQUIRES HOSPITAL BED DUE TO CHF--NEEDS HEAD OF BED ELEVATED AND POSITIONING
[2018-08-02] MEDS ORDERED: LABETALOL HCL 200 MG TABLET (FP) PO SCH (08:43)
[2018-08-02] MEDS: HEPARIN NA (PORCINE) 5,000 UNITS/ML 1ML VIAL SQ SCH (09:28)
[2018-08-02] MEDS: SPIRONOLACTONE 25 MG TABLET (FP) PO SCH (09:28)
[2018-08-02] MEDS: DONEPEZIL HCL 10 MG TABLET (FP) PO SCH (09:28)
[2018-08-02] MEDS: FERROUS SO4 325 MG TABLET (FP) PO SCH (09:28)
[2018-08-02] MEDS: amLODIPine BESYLATE 5 MG TABLET (FP) PO SCH (09:28)
[2018-08-02] MEDS: ASPIRIN 81 MG CHEWABLE TABLETS PO SCH (09:28)
[2018-08-02] MEDS ORDERED: TORSEMIDE 20 MG TABLET (FP) PO SCH (10:00)
--- NOTE | 2018-08-02 12:06 | EKG ---
Test Reason : Blood Pressure : / mmHG Vent. Rate : 062 BPM Atrial Rate : 062 BPM P-R Int : 178 ms QRS Dur : 114 ms QT Int : 446 ms P-R-T Axes : 015 -42 049 degrees QTc Int : 452 ms NORMAL SINUS RHYTHM LEFT AXIS DEVIATION ABNORMAL ECG WHEN COMPARED WITH ECG OF 29-JUL-2018 09:10, NONSPECIFIC T WAVE ABNORMALITY, IMPROVED IN LATERAL LEADS QT HAS LENGTHENED Confirmed by MD Gustabo, Geovanny ([id number]) on 08/02/2018 12:06:35 PM Referred By: Jamie PORTER Confirmed By:Geovanny Montejo MD
[2018-08-02] MEDS ORDERED: INSULIN (NOVOLOG) ASPART 100 UNITS/ML 10ML VIAL ONE (12:32)
--- NOTE | 2018-08-02 13:18 | PN ---
Progress Note, Physician History of Present Illness: Pt seen and examined at bedside. - Current Medication List Current Medications: Active Medications Acetaminophen (Tylenol -) 650 mg PO Q6H PRN PRN Reason: PAIN LEVEL 1-5 Last Admin: 07/30/18 10:22 Dose: 650 mg Amlodipine Besylate (Norvasc -) 5 mg PO DAILY [facility] Last Admin: 08/02/18 09:28 Dose: 5 mg Aspirin (Asa -) 81 mg PO DAILY [facility] Last Admin: 08/02/18 09:28 Dose: 81 mg Atorvastatin Calcium (Lipitor -) 20 mg PO HS [facility] Last Admin: 08/01/18 22:26 Dose: 20 mg Bupropion HCl (Wellbutrin Xl -) 150 mg PO DAILY [facility] Last Admin: 08/02/18 09:28 Dose: 150 mg Donepezil HCl (Aricept -) 10 mg PO DAILY [facility] Last Admin: 08/02/18 09:28 Dose: 10 mg Ferrous Sulfate (Feosol -) 325 mg PO DAILY [facility] Last Admin: 08/02/18 09:28 Dose: 325 mg Heparin Sodium (Porcine) (Heparin -) 5,000 unit SQ BID [facility] Last Admin: 08/02/18 09:28 Dose: 5,000 unit Hydralazine HCl (Apresoline -) 50 mg PO TID [facility] Last Admin: 08/02/18 06:12 Dose: 50 mg Insulin Aspart (Novolog Vial Sliding Scale -) 1 vial SQ [facility]; Protocol Last Admin: 08/02/18 12:00 Dose: 2 units Insulin Detemir (Levemir Vial) 14 units SQ DAILY@0800 [facility] Last Admin: 08/02/18 08:30 Dose: 14 units Labetalol HCl (Normodyne -) 200 mg PO BID [facility] Last Admin: 08/02/18 11:00 Dose: 200 mg Metoclopramide HCl (Reglan -) 10 mg PO TIDAC [facility] Last Admin: 08/02/18 12:00 Dose: 10 mg Pancrelipase (Creon Dr 36,000 Units Capsule) 1 cap PO TIDCM [facility] Last Admin: 08/02/18 12:46 Dose: 1 cap Pramipexole Dihydrochloride (Mirapex -) 1 mg PO HS [facility] Last Admin: 08/01/18 22:25 Dose: 1 mg Spironolactone (Aldactone -) 25 mg PO DAILY [facility] Last Admin: 08/02/18 09:28 Dose: 25 mg Torsemide (Demadex -) 20 mg PO DAILY [facility] Last Admin: 08/02/18 09:28 Dose: 20 mg - Objective Vital Signs: Vital Signs Temperature 98.4 F 08/02/18 09:00 Pulse Rate 61 08/02/18 09:00 Respiratory Rate 18 08/02/18 09:00 Blood Pressure 172/61 H 08/02/18 09:00 O2 Sat by Pulse Oximetry (%) 95 08/02/18 09:00 Constitutional: Yes: Calm Eyes: Yes: Conjunctiva Clear HENT: Yes: Atraumatic Cardiovascular: Yes: S1, S2 Respiratory: Yes: CTA Bilaterally Gastrointestinal: Yes: Soft Genitourinary: Yes: WNL Musculoskeletal: Yes: WNL Edema: Yes Edema: LLE: 1+, RLE: 1+ Integumentary: Yes: Venous Stasis Changes Neurological: Yes: Oriented Psychiatric: Yes: Oriented Labs: CBC, BMP 08/02/18 05:30 08/02/18 05:30 Problem List - Problems (1) JASPER (acute kidney injury) Code(s): N17.9 - ACUTE KIDNEY FAILURE, UNSPECIFIED (2) Abdominal pain Code(s): R10.9 - UNSPECIFIED ABDOMINAL PAIN Qualifiers: Abdominal location: unspecified location Qualified Code(s): R10.9 - Unspecified abdominal pain (3) CHF (congestive heart failure) Code(s): I50.9 - HEART FAILURE, UNSPECIFIED Qualifiers: Heart failure type: unspecified Heart failure chronicity: acute Qualified Code(s): I50.9 - Heart failure, unspecified Assessment/Plan Current Medications Generic Name Dose Route Start Last Admin Trade Name Freq PRN Reason Stop Dose Admin Acetaminophen 650 mg 07/28/18 14:09 07/30/18 10:22 Tylenol - PO 650 mg Q6H PRN Administration PAIN LEVEL 1-5 Amlodipine Besylate 5 mg 07/31/18 10:00 08/02/18 09:28 Norvasc - PO 5 mg DAILY [facility] Administration Aspirin 81 mg 07/29/18 10:00 08/02/18 09:28 Asa - PO 81 mg DAILY [facility] Administration Atorvastatin Calcium 20 mg 07/28/18 22:00 08/01/18 22:26 Lipitor - PO 20 mg HS [facility] Administration Bupropion HCl 150 mg 07/29/18 10:00 08/02/18 09:28 Wellbutrin Xl - PO 150 mg DAILY [facility] Administration Donepezil HCl 10 mg 07/30/18 10:00 08/02/18 09:28 Aricept - PO 10 mg DAILY [facility] Administration Ferrous Sulfate 325 mg 07/29/18 10:00 08/02/18 09:28 Feosol - PO 325 mg DAILY [facility] Administration Heparin Sodium (Porcine) 5,000 unit 07/28/18 22:00 08/02/18 09:28 Heparin - SQ 5,000 unit BID [facility] Administration Hydralazine HCl 50 mg 07/28/18 14:15 08/02/18 06:12 Apresoline - PO 50 mg TID [facility] Administration Insulin Aspart 1 vial 07/28/18 16:30 08/02/18 12:00 Novolog Vial Sliding Scale - SQ 2 units ACHS [facility] Administration Protocol Insulin Detemir 14 units 07/30/18 08:00 08/02/18 08:30 Levemir Vial SQ 14 units DAILY@0800 [facility] Administration Labetalol HCl 200 mg 08/02/18 08:43 08/02/18 11:00 Normodyne - PO 200 mg BID [facility] Administration Metoclopramide HCl 10 mg 08/01/18 16:30 08/02/18 12:00 Reglan - PO 10 mg TIDAC [facility] Administration Pancrelipase 1 cap 07/28/18 17:30 08/02/18 12:[address] 36,000 Units Capsule PO 1 cap TIDCM [facility] Administration Pramipexole Dihydrochloride 1 mg 07/29/18 22:00 08/01/18 22:25 Mirapex - PO 1 mg HS [facility] Administration Spironolactone 25 mg 07/30/18 10:00 08/02/18 09:28 Aldactone - PO 25 mg DAILY [facility] Administration Torsemide 20 mg 08/02/18 10:00 08/02/18 09:28 Demadex - PO 20 mg DAILY [facility] Administration Laboratory Tests 07/28/18 07/29/18 06:00 17:15 Total Protein (PEP) Pending Albumin (PEP) Pending Globulin Pending Albumin/Globulin Ratio Pending Beta Globulins Pending Protein/Creatinin Ratio 4.350 CARMEN M-Jacob Pending Impression 1. JASPER 2. fluid overload 3. HLD 4. shortness of breath 5. HTN 6. DM 7. proteinuria 8. chest pain Impression - called and spoke to her daughter, they would like to hold off biopsy. - it is unclear what her allergy to valsartan is - would consider starting low dose jasper as a trial - cont diuretics - cont asa for now as they do not want biopsy
--- NOTE | 2018-08-02 13:55 | DS ---
Physical Examination Vital Signs: Vital Signs Temperature 98.4 F 08/02/18 09:00 Pulse Rate 61 08/02/18 09:00 Respiratory Rate 18 08/02/18 09:00 Blood Pressure 172/61 H 08/02/18 09:00 O2 Sat by Pulse Oximetry (%) 95 08/02/18 09:00 Labs: CBC, BMP 08/02/18 05:30 08/02/18 05:30 Discharge Summary Reason For Visit: ACUTE KIDNEY INJURY, CONGESTIVE HEART FAILURE Current Active Problems CKD (chronic kidney disease) (Acute) Chest pain (Acute) Depression (Acute) Condition: Improved - Instructions Referrals: Ro Espana MD [Primary Care Provider] - 1 Week Disposition: VNS/HOME HEALTH CARE - Home Medications Comprehensive Discharge Medication List: Ambulatory Orders Aspirin [ASA -] 81 mg PO DAILY 09/09/15 Donepezil HCl 10 mg PO DAILY 02/01/18 Pantoprazole Sodium [Protonix -] 40 mg PO DAILY #30 tablet.ec 02/09/18 Acetaminophen [Tylenol] 650 mg PO Q4H PRN 06/01/18 Cranberry Fruit Extract [Cranberry Extract] 1 gm PO DAILY 06/01/18 Polyethylene Glycol 3350 [Miralax 119 gm Btl -] 17 gm PO DAILY 06/01/18 Pramipexole Di-HCl [Mirapex] 1 mg PO DAILY 06/01/18 Simvastatin 20 mg PO DAILY 06/01/18 hydrALAZINE HCL [Apresoline -] 50 mg PO TID 06/01/18 Insulin Sliding Scale [Novolog Vial Sliding Scale -] 1 vial SQ TIDAC units Albuterol 0.083% Nebulizer Court [Ventolin 0.083% Nebulizer Soln -] 1 amp IN QID PRN 07/28/18 Aspirin [ASA -] 81 mg PO DAILY tab.chew 08/01/18 Atorvastatin Ca [Lipitor] 20 mg PO HS tablet 08/01/18 Bupropion HCl [Wellbutrin Xl -] 150 mg PO DAILY tab.sr.24h 08/01/18 Donepezil HCl [Aricept -] 10 mg PO DAILY tablet 08/01/18 Ferrous Sulfate [Feosol] 325 mg PO DAILY [facility] 08/01/18 Insulin (Levemir) [Levemir Vial] 14 units SQ DAILY@0800 units 08/01/18 Lipase/Protease/Amylase [Elaine Sweeney 36,000 Units Capsule] 1 cap PO TIDCM capsule. 08/01/18 Pramipexole Dihydrochloride [Mirapex -] 1 mg PO HS tablet 08/01/18 Spironolactone [Aldactone -] 25 mg PO DAILY #30 tablet MDD 1 08/01/18 Amlodipine Besylate [Norvasc -] 5 mg PO BID #60 tablet 08/02/18 Labetalol HCl [Normodyne -] 200 mg PO BID #60 tablet 08/02/18 Metoclopramide HCl [Reglan -] 10 mg PO TIDAC tablet 08/02/18 Torsemide [Demadex -] 20 mg PO DAILY #30 tablet 08/02/18
[2018-08-02 15:39] VITALS: BP 126/43; PULSE 53; TEMP 97.9
[2018-08-02] MEDS: ACETAMINOPHEN 325 MG TABLET (FP) PO PRN (16:41)
[2018-08-02] MEDS ORDERED: amLODIPine BESYLATE 5 MG TABLET (FP) PO SCH (22:00)
== END 2018-08-02 17:54 | disposition home health service (06) | DRG 682 ==
LOC: JER 08:59 → JERBED 11:58 → J4W 13:05
PROVIDERS: ADMIT Family Medicine; ATTEND Family Medicine
DX: N17.9 Acute kidney failure, unspecified (principal); G93.41 Metabolic encephalopathy; I50.33 Acute on chronic diastolic (congestive) heart failure; I13.0 Hypertensive heart and chronic kidney disease with heart failure and stage 1 through stage 4 chronic kidney disease, or unspecified chronic kidney disease; G20 Parkinson's disease; F02.80 Dementia in other diseases classified elsewhere, unspecified severity, without behavioral disturbance, psychotic disturbance, mood disturbance, and anxiety; E78.5 Hyperlipidemia, unspecified; E11.42 Type 2 diabetes mellitus with diabetic polyneuropathy; K57.90 Diverticulosis of intestine, part unspecified, without perforation or abscess without bleeding; F41.9 Anxiety disorder, unspecified; R07.89 Other chest pain; D64.9 Anemia, unspecified; E87.70 Fluid overload, unspecified; R80.9 Proteinuria, unspecified; F41.8 Other specified anxiety disorders; G25.81 Restless legs syndrome; R26.89 Other abnormalities of gait and mobility; E11.22 Type 2 diabetes mellitus with diabetic chronic kidney disease; N18.9 Chronic kidney disease, unspecified
CPT/HCPCS: 36415; 71045-TC-FY; 71046-TC-FY; 80048; 80053; 80061; 81003; 82550; 82570; 82728; 82962; 83036; 83540; 83550; 83721; 83735; 83880; 84100; 84155; 84156; 84165; 84484; 85025; 85027; 93005; 93010; 93306-TC; 97116-GP; 97161-GP; 99283-25; J0131; J0735; J1644

== ENCOUNTER 2018-09-12 02:30 | Inpatient (IN) | payer OTHER ==
--- NOTE | 2018-09-12 03:18 | PDOC ---
Attending Attestation - Resident Resident Name: Kostas Marcano - ED Attending Attestation I have performed the following: I have examined & evaluated the patient, The case was reviewed & discussed with the resident, I agree w/resident's findings & plan - HPI HPI: 09/12/18 03:23 Pt complains of worsening dizziness. SHe also has CP and SOB, 09/12/18 04:06 decreased oral intake; some increased leg swelling. Feeling unwell. 09/12/18 05:28 Pt has slight CHF exacerbation - Physicial Exam PE: 09/12/18 04:07 Agree with resident exam. - Medical Decision Making 09/12/18 03:20 small rales at the bases 09/12/18 04:07 Labs pending. 09/12/18 04:32 Pt will be treated with lasix IVP; she will be admitted for CHF exacerbation, as her BNP is worse than it ever has been 09/12/18 05:31 Pt's Hb has been dropping relatively consistently since 2010
--- NOTE | 2018-09-12 03:56 | PDOC ---
History of Present Illness - General Chief Complaint: Chest Pain Stated Complaint: HYPERTENSION Time Seen by Provider: 09/12/18 03:17 - History of Present Illness Initial Comments: 09/12/18 03:51 78 yo F with HTN, HLD, CHF, CKD, parkinsons, Dementia, who p/w chest pain. Patient reports acute onset of unremitting, non pleuritic, retrosternal chest pressure, radiating to right shoulder, worse with exertion x 2 days. Also endorses SOB, orthopnea, lightheadedness. Denies h/o similiar chest pain. Denies home O2 requirements . Home duoneb use, with absent improvement. On torsemide 20 mg daily. Echo 08/07 with nml EF 55-60%, absent wall motion or valvular abnml. Patient denies LINK, vision change, palpitations, cough, wheezing, PND, N/V, F,C, urinary complaints, hematuria, BPR, abdominal pain, diarrhea, constipation, weakness, sensory changes. PMHx: as noted above. Denies h/o CAD, MN, stent placement, CABG ROS: as noted SHx: Denies Etoh, IVDA, tobacco use Allergies: NKDA PMD: Dr. Espana, Ro Past History - Past Medical History Allergies/Adverse Reactions: Allergies Allergy/AdvReac Type Severity Reaction Status Date / Time valsartan [From Diovan] Allergy Mild Verified 09/12/18 02:40 Home Medications: Ambulatory Orders Aspirin [ASA -] 81 mg PO DAILY 09/09/15 Donepezil HCl 10 mg PO DAILY 02/01/18 Pantoprazole Sodium [Protonix -] 40 mg PO DAILY #30 tablet.ec 02/09/18 Acetaminophen [Tylenol] 650 mg PO Q4H PRN 06/01/18 Cranberry Fruit Extract [Cranberry Extract] 1 gm PO DAILY 06/01/18 Polyethylene Glycol 3350 [Miralax 119 gm Btl -] 17 gm PO DAILY 06/01/18 Pramipexole Di-HCl [Mirapex] 1 mg PO DAILY 06/01/18 Simvastatin 20 mg PO DAILY 06/01/18 hydrALAZINE HCL [Apresoline -] 50 mg PO TID 06/01/18 Insulin Sliding Scale [Novolog Vial Sliding Scale -] 1 vial SQ TIDAC units Albuterol 0.083% Nebulizer Court [Ventolin 0.083% Nebulizer Soln -] 1 amp IN QID PRN 07/28/18 Aspirin [ASA -] 81 mg PO DAILY tab.chew 08/01/18 Atorvastatin Ca [Lipitor] 20 mg PO HS tablet 08/01/18 Bupropion HCl [Wellbutrin Xl -] 150 mg PO DAILY tab.sr.24h 08/01/18 Donepezil HCl [Aricept -] 10 mg PO DAILY tablet 08/01/18 Ferrous Sulfate [Feosol] 325 mg PO DAILY ud 08/01/18 Insulin (Levemir) [Levemir Vial] 14 units SQ DAILY@0800 units 08/01/18 Lipase/Protease/Amylase [Elaine Sweeney 36,000 Units Capsule] 1 cap PO TIDCM capsule. 08/01/18 Pramipexole Dihydrochloride [Mirapex -] 1 mg PO HS tablet 08/01/18 Spironolactone [Aldactone -] 25 mg PO DAILY #30 tablet MDD 1 08/01/18 Amlodipine Besylate [Norvasc -] 5 mg PO BID #60 tablet 08/02/18 Labetalol HCl [Normodyne -] 200 mg PO BID #60 tablet 08/02/18 Metoclopramide HCl [Reglan -] 10 mg PO TIDAC tablet 08/02/18 Torsemide [Demadex -] 20 mg PO DAILY #30 tablet 08/02/18 Carbidopa/Levodopa [Carbidopa-Levodopa 25-100 Tab] 1 each PO DAILY 09/12/18 Divalproex [Depakote -] 250 mg PO DAILY 09/12/18 Mirtazapine 15 mg PO DAILY 09/12/18 Nifedipine 30 mg PO DAILY 09/12/18 Anemia: No Asthma: No Cancer: No Cardiac Disorders: No CVA: No COPD: No CHF: Yes DVT: No Dementia: Yes Diabetes: Yes GI Disorders: Yes (DIVERTICULOSIS, IBM) Disorders: Yes (UTERINE POLYPS,URINARY INCONTINENCE) HTN: Yes Hypercholesterolemia: Yes Liver Disease: No Seizures: No Thyroid Disease: No - Surgical History Abdominal Surgery: (abdominoplasty 15 yrs ago (tissue became necrotic)) Appendectomy: Yes Cardiac Surgery: No Cholecystectomy: Yes Lung Surgery: No Neurologic Surgery: No Orthopedic Surgery: No - Immunization History Immunization Up to Date: Yes - Suicide/Smoking/Psychosocial Hx Smoking Status: No Smoking History: Unknown if ever smoked Have you smoked in the past 12 months: No Number of Cigarettes Smoked Daily: 0 Hx Alcohol Use: No Drug/Substance Use Hx: No Substance Use Type: None Hx Substance Use Treatment: No Review of Systems - Review of Systems Comments:: 09/12/18 03:56 GENERAL/CONSTITUTIONAL: + Weakness. No fever or chills. HEAD, EYES, EARS, NOSE AND THROAT: No change in vision. No ear pain or discharge. No sore throat. CARDIOVASCULAR: + chest pain and shortness of breath RESPIRATORY: No cough, wheezing, or hemoptysis. GASTROINTESTINAL: No nausea, vomiting, diarrhea or constipation. GENITOURINARY: No dysuria, frequency, or change in urination. MUSCULOSKELETAL: No joint or muscle swelling or pain. No neck or back pain. SKIN: No rash NEUROLOGIC: No headache, vertigo, loss of consciousness, or change in strength/ sensation. ENDOCRINE: No increased thirst. No abnormal weight change HEMATOLOGIC/LYMPHATIC: No anemia, easy bleeding, or history of blood clots. ALLERGIC/IMMUNOLOGIC: No hives or skin allergy. *Physical Exam - Vital Signs Last Vital Signs Temp Pulse Resp BP Pulse Ox 97.7 F 64 20 195/61 H 98 09/12/18 02:32 09/12/18 02:32 09/12/18 02:32 09/12/18 02:32 09/12/18 02:32 - Physical Exam Comments: 09/12/18 03:56 GENERAL: Awake, alert, and fully oriented, in no acute distress HEAD: No signs of trauma, normocephalic, atraumatic EYES: PERRLA, EOMI, sclera anicteric, conjunctiva clear ENT: Hearing grossly normal, nares patent, oropharynx clear without exudates. Moist mucosa NECK: Normal ROM, supple, no lymphadenopathy, JVD, or masses LUNGS: BL LL base crackles. No distress, speaks full sentences. HEART: Regular rate and rhythm, normal S1 and S2, no murmurs, rubs or gallops, peripheral pulses normal and equal bilaterally. ABDOMEN: Soft, nontender, normoactive bowel sounds. No guarding, no rebound. No masses EXTREMITIES : BL LE 2+ pitting edema. Normal inspection, Normal range of motion No clubbing or cyanosis. NEUROLOGICAL: Cranial nerves II through XII grossly intact. Normal speech, no focal sensorimotor deficits SKIN: Warm, Dry, normal turgor, no rashes or lesions noted ED Treatment Course - LABORATORY CBC & Chemistry Diagram: 09/12/18 05:28 09/12/18 03:24 - ADDITIONAL ORDERS Additional order review: Laboratory Results 09/12/18 03:24 B-Natriuretic Peptide Cancelled Medical Decision Making - Medical Decision Making 09/12/18 03:57 78 yo F with HTN, HLD, CHF, CKD, anemia, GI bleed, Parkinsons, Dementia, who p/ w chest pain.BP 195/61, vitals otherwise wnl, AF, A&Ox3. Physical exam with BL LL crackles. ACS/MN r/o. R/o PNA. Low risk PE per Wells criteria. Will consider acute CHF exacerbation, asthma/COPD, pleural effusions, anemia. ED Course: 09/12/18 04:00 Laboratory Tests 09/12/18 03:24 BUN 26.3 H Creatinine 1.3 B-Natriuretic Peptide 7620.0 H 09/12/18 05:28 EKG: NSR with LAD, incomplete RBBB. absent ASHLEY, STD. Nml interval duration. 09/12/18 06:02 Laboratory Tests 09/12/18 09/12/18 03:24 05:28 WBC 7.0 Hgb 8.4 L Plt Count 484 H D Sodium 142 Potassium 4.4 B-Natriuretic Peptide 7620.0 H 09/12/18 07:02 Patient endorsed to day team Dr. bradford Pending CXR *DC/Admit/Observation/Transfer Diagnosis at time of Disposition: CHF exacerbation Qualifiers: Heart failure type: unspecified Qualified Code(s): I50.9 - Heart failure, unspecified Chest pain Qualifiers: Chest pain type: unspecified Qualified Code(s): R07.9 - Chest pain, unspecified - Discharge Dispostion Condition at time of disposition: Improved Decision to Admit order: No - Referrals - Patient Instructions - Post Discharge Activity
[2018-09-12 04:08] LABS: INR 1.09 (0.83-1.09); PROTHROMBIN TIME (PATIENT) 12.9 SEC (9.7-13.0)
[2018-09-12 04:10] LABS: ALBUMIN 2.9 g/dl (3.4-5.0); BILIRUBIN,TOTAL 0.3 mg/dL (0.2-1); BLOOD UREA NITROGEN 26.3 mg/dL (7-18); CALCIUM 8.4 mg/dL (8.5-10.1); CREATININE 1.3 mg/dL (0.55-1.3); POTASSIUM 4.4 mmol/L (3.5-5.1); TOT PROT 6.8 g/dl (6.4-8.2)
[2018-09-12] MEDS ORDERED: FUROSEMIDE 40 MG/4 ML INJECTABLE VIAL IVPUSH ONE (04:32)
[2018-09-12] MEDS ORDERED: FUROSEMIDE 40 MG/4 ML INJECTABLE VIAL ONE (04:51)
[2018-09-12 05:35] LABS: BASO % 0.9 % (0-2.0); EOS % 3.8 % (0-4.5); HEMATOCRIT 24.8 % (32.4-45.2); HEMOGLOBIN 8.4 GM/dL (10.7-15.3); LYMPH % 17.3 % (8-40); MCH 26.7 pg (25.7-33.7); MCHC 33.9 g/dl (32.0-36.0); MEAN CELL VOLUME 78.7 fl (80-96); MEAN PLT VOLUME 6.6 fl (7.5-11.1); MONO % 13.2 % (3.8-10.2); NEUT % 64.8 % (42.8-82.8); PLATELET COUNT 484 K/MM3 (134-434); RBC 3.16 M/mm3 (3.60-5.2); RDW 16.9 % (11.6-15.6)
[2018-09-12] MEDS ORDERED: NIFEdipine 10 MG CAPSULE (FP) PO ONE (07:01)
[2018-09-12] MEDS ORDERED: LABETALOL HCL 200 MG TABLET (FP) PO ONE (07:01)
--- NOTE | 2018-09-12 07:12 | PDOC ---
*Physical Exam - Vital Signs Last Vital Signs Temp Pulse Resp BP Pulse Ox 98.1 F 63 19 207/61 H 95 09/12/18 05:54 09/12/18 05:54 09/12/18 05:54 09/12/18 05:54 09/12/18 05:54 ED Treatment Course - LABORATORY CBC & Chemistry Diagram: 09/12/18 05:28 09/12/18 03:24 - ADDITIONAL ORDERS Additional order review: Laboratory Results 09/12/18 09/12/18 09/12/18 03:24 03:24 03:24 PT with INR 12.90 INR 1.09 Sodium Potassium Chloride Carbon Dioxide Anion Gap BUN Creatinine Est GFR (CKD-EPI)AfAm Est GFR (CKD-EPI)NonAf Random Glucose Calcium Total Bilirubin AST ALT Alkaline Phosphatase Creatine Kinase 94 Troponin I < 0.02 B-Natriuretic Peptide Cancelled Total Protein Albumin 09/12/18 03:24 PT with INR INR Sodium 142 Potassium 4.4 Chloride 107 Carbon Dioxide 31 Anion Gap 4 L BUN 26.3 H Creatinine 1.3 Est GFR (CKD-EPI)AfAm 46.15 Est GFR (CKD-EPI)NonAf 39.82 Random Glucose 175 H Calcium 8.4 L Total Bilirubin 0.3 AST 16 ALT 8 L Alkaline Phosphatase 106 Creatine Kinase Troponin I B-Natriuretic Peptide 7620.0 H Total Protein 6.8 Albumin 2.9 L 09/12/18 09/12/18 05:28 03:24 RBC 3.16 L Cancelled MCV 78.7 L Cancelled MCHC 33.9 Cancelled RDW 16.9 H Cancelled MPV 6.6 L D Cancelled Neutrophils % 64.8 Cancelled Lymphocytes % 17.3 Cancelled Monocytes % 13.2 H Cancelled Eosinophils % 3.8 Cancelled Basophils % 0.9 Cancelled - Medications Given in the ED: ED Medications Discontinued Medications Generic Name Dose Route Start Last Admin Trade Name Freq PRN Reason Stop Dose Admin Furosemide 40 mg 09/12/18 04:32 09/12/18 04:58 Lasix Injection - IVPUSH 09/12/18 04:33 40 mg ONCE ONE Administration Medical Decision Making - Medical Decision Making 09/12/18 07:09 Pt signed out to me by Dr. Marcano. See prior note. 78 year old female with PMH HTN, HLD, CHF, CKD, parkinsons, dementia presented to ED for chest pain. Pt appears clinically overloaded - crackles to bilateral lung bases, 4+ pitting edema to bilateral LE. Initial Vital Signs Temp Pulse Resp BP Pulse Ox 97.7 F 64 20 195/61 H 98 09/12/18 02:32 09/12/18 02:32 09/12/18 02:32 09/12/18 02:32 09/12/18 02:32 Afebrile. No tachycardia. No tachypnea. Hypertensive. No hypoxia on room air. EKG performed at 0514: rate 63, regular rhythm, left axis, incomplete RBBB, flat t in aVL otherwise no acute ST changes. CBC WBC 7.0 K/mm3 (4.0-10.0) 09/12/18 05:28 Corrected WBC (auto) Cancelled 09/12/18 03:24 RBC 3.16 M/mm3 (3.60-5.2) L 09/12/18 05:28 Hgb 8.4 GM/dL (10.7-15.3) L 09/12/18 05:28 Hct 24.8 % (32.4-45.2) L 09/12/18 05:28 MCV 78.7 fl (80-96) L 09/12/18 05:28 MCH 26.7 pg (25.7-33.7) 09/12/18 05:28 MCHC 33.9 g/dl (32.0-36.0) 09/12/18 05:28 RDW 16.9 % (11.6-15.6) H 09/12/18 05:28 Plt Count 484 K/MM3 (134-434) H D 09/12/18 05:28 MPV 6.6 fl (7.5-11.1) L D 09/12/18 05:28 Absolute Neuts (auto) 4.6 K/mm3 (1.5-8.0) 09/12/18 05:28 Absolute Lymphs (auto) Cancelled 09/12/18 03:24 Absolute Monos (auto) Cancelled 09/12/18 03:24 Absolute Eos (auto) Cancelled 09/12/18 03:24 Absolute Basos (auto) Cancelled 09/12/18 03:24 Add Manual Diff Cancelled 09/12/18 03:24 Neutrophils % 64.8 % (42.8-82.8) 09/12/18 05:28 Lymphocytes % 17.3 % (8-40) 09/12/18 05:28 Monocytes % 13.2 % (3.8-10.2) H 09/12/18 05:28 Eosinophils % 3.8 % (0-4.5) 09/12/18 05: Basophils % 0.9 % (0-2.0) 09/12/18 05:28 Nucleated RBC % 0 % (0-0) 09/12/18 05:28 Platelet Estimate Cancelled 09/12/18 03:24 Platelet Comment Cancelled 09/12/18 03:24 Normal RBC Morphology Cancelled 09/12/18 03:24 No leukocytosis. Microcytic anemia. CMP Sodium 142 mmol/L (136-145) 09/12/18 03:24 Potassium 4.4 mmol/L (3.5-5.1) 09/12/18 03:24 Chloride 107 mmol/L (98-107) 09/12/18 03:24 Carbon Dioxide 31 mmol/L (21-32) 09/12/18 03:24 Anion Gap 4 MMOL/L (8-16) L 09/12/18 03:24 BUN 26.3 mg/dL (7-18) H 09/12/18 03:24 Creatinine 1.3 mg/dL (0.55-1.3) 09/12/18 03:24 Est GFR (CKD-EPI)AfAm 46.15 09/12/18 03:24 Est GFR (CKD-EPI)NonAf 39.82 09/12/18 03:24 Random Glucose 175 mg/dL (74-106) H 09/12/18 03:24 Calcium 8.4 mg/dL (8.5-10.1) L 09/12/18 03:24 Total Bilirubin 0.3 mg/dL (0.2-1) 09/12/18 03:24 AST 16 U/L (15-37) 09/12/18 03:24 ALT 8 U/L (13-61) L 09/12/18 03:24 Alkaline Phosphatase 106 U/L (45-117) 09/12/18 03:24 Creatine Kinase 94 U/L (26-192) 09/12/18 03:24 Troponin I < 0.02 ng/ml (0.00-0.05) 09/12/18 03:24 B-Natriuretic Peptide 7620.0 pg/ml (5-450) H 09/12/18 03:24 Total Protein 6.8 g/dl (6.4-8.2) 09/12/18 03:24 Albumin 2.9 g/dl (3.4-5.0) L 09/12/18 03:24 No electrolyte abnormalities. No JASPER. Cr at baseline. No transaminitis. Troponin undetectable. BNP elevation. Pt was given Lasix 40 mg IV once. Pending CXR and disposition. Pt to be admitted for chest pain. Pt given morning meds. 09/12/18 08:05 Vital Signs Blood Pressure 207/61 H 09/12/18 05:54 Hypertension not resolving with home meds. Medications ordered: Nitro 0.4 mg SL once, Tylenol 975 mg PO once 09/12/18 08:12 CXR report: EXAM#: TYPE/EXAM: RESULT: [id number] RAD/CHEST PA LAT Chest: Chest pain 2 views of the chest have been submitted. 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 There are increasing bibasilar atelectatic/infiltrative changes with pleural fluid. The right is more affected than the left. Correlation and follow-up recommended. Reported By : Tristan Bryant MD 09/12/18 0803 09/12/18 08:38 Vital Signs Temperature 98.1 F 09/12/18 08:15 Pulse Rate 72 09/12/18 08:15 Respiratory Rate 20 09/12/18 08:15 Blood Pressure 193/72 H 09/12/18 08:15 O2 Sat by Pulse Oximetry (%) 96 09/12/18 08:15 HTN improving, will continue to observe. 09/12/18 09:50 Vital Signs Pulse Rate 58 L 09/12/18 09:45 Respiratory Rate 16 09/12/18 09:45 Blood Pressure 179/66 H 09/12/18 09:45 O2 Sat by Pulse Oximetry (%) 95 09/12/18 09:53 Mild bradycardia. No tachypnea. HTN improving. No hypoxia on room air. I spoke with Audrey Pastrana NP - pt to be admitted for CHF exacerbation. Pending admission. *DC/Admit/Observation/Transfer Diagnosis at time of Disposition: CHF exacerbation, Chest pain - Discharge Dispostion Condition at time of disposition: Improved Decision to Admit order: Yes - Referrals - Patient Instructions - Post Discharge Activity
[2018-09-12] MEDS ORDERED: NIFEdipine E.R. 30 MG TABLET (FP) ONE (07:16)
[2018-09-12] MEDS ORDERED: LABETALOL HCL 100 MG TABLET (FP) ONE ×2 (07:16→20:23)
[2018-09-12] MEDS ORDERED: NITROGLYCERIN SUBLINGUAL 1/150 0.4 MG TAB SL ONE (08:05)
[2018-09-12] MEDS ORDERED: ACETAMINOPHEN 325 MG TABLET (FP) PO ONE (08:05)
[2018-09-12] MEDS ORDERED: ACETAMINOPHEN 325 MG TABLET (FP) ONE (08:12)
[2018-09-12] MEDS ORDERED: NITROGLYCERIN SUBLINGUAL 1/150 0.4 MG TAB ONE (08:13)
[2018-09-12] MEDS ORDERED: ACETAMINOPHEN 325 MG TABLET (FP) PO PRN (09:57)
[2018-09-12] MEDS ORDERED: SPIRONOLACTONE 25 MG TABLET (FP) PO SCH (10:00)
[2018-09-12] MEDS ORDERED: CRANBERRY FRUIT EXTRACT PO SCH (10:00)
[2018-09-12] MEDS ORDERED: amLODIPine BESYLATE 5 MG TABLET (FP) PO SCH (10:00)
[2018-09-12] MEDS ORDERED: FUROSEMIDE 40 MG/4 ML INJECTABLE VIAL IVPUSH SCH (10:00)
[2018-09-12] MEDS ORDERED: FERROUS SO4 325 MG TABLET (FP) PO SCH (10:00)
[2018-09-12] MEDS ORDERED: DONEPEZIL HCL 10 MG TABLET (FP) PO SCH (10:00)
[2018-09-12] MEDS ORDERED: PRAMIPEXOLE DIHYDROCHLORIDE 1 MG TABLET PO SCH (10:00)
[2018-09-12] MEDS ORDERED: POLYETHYLENE GLYCOL 3350 119 GM BTL PO SCH (10:00)
[2018-09-12] MEDS ORDERED: LABETALOL HCL 200 MG TABLET (FP) PO SCH (10:00)
--- NOTE | 2018-09-12 10:33 | EKG ---
Test Reason : Blood Pressure : / mmHG Vent. Rate : 063 BPM Atrial Rate : 063 BPM P-R Int : 184 ms QRS Dur : 108 ms QT Int : 428 ms P-R-T Axes : 000 -32 045 degrees QTc Int : 437 ms NORMAL SINUS RHYTHM LEFT AXIS DEVIATION NON-SPECIFIC INTRA-VENTRICULAR CONDUCTION DELAY CANNOT RULE OUT SEPTAL INFARCT , AGE UNDETERMINED ABNORMAL ECG WHEN COMPARED WITH ECG OF 02-AUG-2018 09:07, LIKELY NO SIGNIFICANT CHANGES Confirmed by ASHWINI MALIN, KELSEY ([id number]) on 09/12/2018 10:33:28 AM Referred By: Confirmed By:KELSEY MARADIAGA MD
[2018-09-12] MEDS ORDERED: METOCLOPRAMIDE HCL 10 MG TABLET (FP) PO SCH (11:00)
--- NOTE | 2018-09-12 11:04 | HP ---
Admitting History and Physical - Primary Care Physician PCP: Ro Espana - Admission Chief Complaint: Chest Pain, HTN History of Present Illness: Patient is a 78 y/o female with past medical history of HTN, HLD, DM, CKD, Parkinson's Disease, Dementia. Patient presented with daughter to ER after elevated BP at home accompanied with chest pain. As per daughter patient has been experiencing elevated BP at home with systolic ranging from 160s-200s. Her elevated BP was accompanied with dizziness, one episode of vomiting, and mid chest pain radiating to R side of chest. She describes the pain as if she was punched in the chest. Patient also states experiencing SOB and orthopnea. Troponin neg x 1 and CXR shows increasing bibasilar atelectasis/infiltrative changes with pleural fluid, right more affected than the left. History Source: Patient, Family Member (daughter) Limitations to Obtaining History: Dementia - Past Medical History NUTRITIONAL SERVICES HOST: Yes: Dementia, Peripheral Neuropathy, Parkinson's Cardiovascular: Yes: HTN, Hyperlipdemia Gastrointestinal: Yes: Diverticulosis Psych: Yes: Anxiety Musculoskeletal: Yes: Osteoarthritis Endocrine: Yes: Diabetes Mellitus - Past Surgical History Past Surgical History: Yes: Appendectomy, Cholecystectomy, - Smoking History Smoking history: Unknown if ever smoked Have you smoked in the past 12 months: No Aproximately how many cigarettes per day: 0 - Alcohol/Substance Use Hx Alcohol Use: No - Social History Usual Living Arrangement: Yes: With Child 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 History of Recent Travel: No Home Medications - Allergies Allergies/Adverse Reactions: Allergies Allergy/AdvReac Type Severity Reaction Status Date / Time valsartan [From Diovan] Allergy Mild Verified 09/12/18 02:40 - Home Medications Home Medications: Ambulatory Orders Aspirin [ASA -] 81 mg PO DAILY 09/09/15 Donepezil HCl 10 mg PO DAILY 02/01/18 Pantoprazole Sodium [Protonix -] 40 mg PO DAILY #30 tablet.ec 02/09/18 Acetaminophen [Tylenol] 650 mg PO Q4H PRN 06/01/18 Cranberry Fruit Extract [Cranberry Extract] 1 gm PO DAILY 06/01/18 Polyethylene Glycol 3350 [Miralax 119 gm Btl -] 17 gm PO DAILY 06/01/18 Pramipexole Di-HCl [Mirapex] 1 mg PO DAILY 06/01/18 Simvastatin 20 mg PO DAILY 06/01/18 hydrALAZINE HCL [Apresoline -] 50 mg PO TID 06/01/18 Insulin Sliding Scale [Novolog Vial Sliding Scale -] 1 vial SQ TIDAC units Albuterol 0.083% Nebulizer Court [Ventolin 0.083% Nebulizer Soln -] 1 amp IN QID PRN 07/28/18 Aspirin [ASA -] 81 mg PO DAILY tab.chew 08/01/18 Atorvastatin Ca [Lipitor] 20 mg PO HS tablet 08/01/18 Bupropion HCl [Wellbutrin Xl -] 150 mg PO DAILY tab.sr.24h 08/01/18 Donepezil HCl [Aricept -] 10 mg PO DAILY tablet 08/01/18 Ferrous Sulfate [Feosol] 325 mg PO DAILY ud 08/01/18 Insulin (Levemir) [Levemir Vial] 14 units SQ DAILY@0800 units 08/01/18 Lipase/Protease/Amylase [Elaine Sweeney 36,000 Units Capsule] 1 cap PO TIDCM capsule. 08/01/18 Pramipexole Dihydrochloride [Mirapex -] 1 mg PO HS tablet 08/01/18 Spironolactone [Aldactone -] 25 mg PO DAILY #30 tablet MDD 1 08/01/18 Amlodipine Besylate [Norvasc -] 5 mg PO BID #60 tablet 08/02/18 Labetalol HCl [Normodyne -] 200 mg PO BID #60 tablet 08/02/18 Metoclopramide HCl [Reglan -] 10 mg PO TIDAC tablet 08/02/18 Torsemide [Demadex -] 20 mg PO DAILY #30 tablet 08/02/18 Carbidopa/Levodopa [Carbidopa-Levodopa 25-100 Tab] 1 each PO 09/12/18 Divalproex [Depakote -] 250 mg PO DAILY 09/12/18 Mirtazapine 15 mg PO 09/12/18 Nifedipine 30 mg PO 09/12/18 Review of Systems - Review of Systems Constitutional: reports: Weakness Eyes: reports: Blurred Vision HENT: reports: No Symptoms Neck: reports: No Symptoms Cardiovascular: reports: Chest Pain, Shortness of Breath Respiratory: reports: Orthopnea, SOB Gastrointestinal: reports: Abdominal Pain Genitourinary: reports: Frequency Breasts: reports: No Symptoms Reported Musculoskeletal: reports: Muscle Weakness Integumentary: reports: No Symptoms Neurological: reports: No Symptoms Endocrine: reports: No Symptoms Hematology/Lymphatic: reports: No Symptoms Psychiatric: reports: No Symptoms Physical Examination Vital Signs: Vital Signs Temperature 98.1 F 09/12/18 08:15 Pulse Rate 58 L 09/12/18 09:45 Respiratory Rate 16 09/12/18 09:45 Blood Pressure 179/66 H 09/12/18 09:45 O2 Sat by Pulse Oximetry (%) 95 09/12/18 09:53 Constitutional: Yes: No Distress, Calm Eyes: Yes: Conjunctiva Clear HENT: Yes: Atraumatic Cardiovascular: Yes: Regular Rate and Rhythm Respiratory: Yes: Regular, Rales Gastrointestinal: Yes: Normal Bowel Sounds, Soft, Tenderness (diffuse) Musculoskeletal: Yes: Muscle Weakness Extremities: Yes: WNL Edema: Yes Edema: LLE: 2+, RLE: 1+ Neurological: Yes: Alert, Pre-Existing Deficit Psychiatric: Yes: Alert Labs: CBC, BMP 09/12/18 05:28 09/12/18 03:24 Imaging - Results X-ray: Report Reviewed EKG: Report Reviewed Problem List - Problems (1) Chest pain Assessment/Plan: -tele monitoring -cardiology consult -trop neg x 1, will repeat -Nitro SL PRN Code(s): R07.9 - CHEST PAIN, UNSPECIFIED (2) Acute on chronic diastolic (congestive) heart failure Assessment/Plan: -Cardiology and Pulmonary consult -Torsemide -daily weights -1L fluid restrictions Code(s): I50.33 - ACUTE ON CHRONIC DIASTOLIC (CONGESTIVE) HEART FAILURE (3) CKD (chronic kidney disease) Assessment/Plan: -BUN/Cr 26.3/1.3 -monitor renal function daily -if increase will order renal consult Code(s): N18.9 - CHRONIC KIDNEY DISEASE, UNSPECIFIED (4) Constipation Assessment/Plan: -colace TID Code(s): K59.00 - CONSTIPATION, UNSPECIFIED (5) Dementia Assessment/Plan: -Donepazil Code(s): F03.90 - UNSPECIFIED DEMENTIA WITHOUT BEHAVIORAL DISTURBANCE (6) Diabetes Assessment/Plan: -BGM ACHS -Levemir -ISS -diabetic/low Na diet -HgA1c Code(s): E11.9 - TYPE 2 DIABETES MELLITUS WITHOUT COMPLICATIONS Qualifiers: Diabetes mellitus type: type 2 (7) HLD (hyperlipidemia) Assessment/Plan: -Atorvastatin Code(s): E78.5 - HYPERLIPIDEMIA, UNSPECIFIED (8) HTN (hypertension) Assessment/Plan: -Nifedipine, Labetolol, Benicar -Cardiology consult -BP q4h -low Na diet Code(s): I10 - ESSENTIAL (PRIMARY) HYPERTENSION (9) Parkinson disease Assessment/Plan: -Carbidopa/Levidopa -fall precaution Code(s): G20 - PARKINSON'S DISEASE (10) SOB (shortness of breath) Assessment/Plan: -Pulmonary consult -bronchodilator -O2 via NC -keep SpO2 >90% Code(s): R06.02 - SHORTNESS OF BREATH Assessment/Plan see problem list dvt ppx
[2018-09-12] MEDS ORDERED: NITROGLYCERIN SUBLINGUAL 1/150 0.4 MG TAB SL PRN (11:11)
[2018-09-12] MEDS: DIVALPROEX SODIUM 250 MG TABLET E.C. PO SCH (12:27)
[2018-09-12] MEDS: ASPIRIN 81 MG CHEWABLE TABLETS PO SCH (12:27)
[2018-09-12] MEDS: PANTOPRAZOLE 40 MG TABLET (FP) PO SCH (12:27)
[2018-09-12] MEDS: DONEPEZIL HCL 10 MG TABLET (FP) PO SCH (12:27)
[2018-09-12] MEDS: HEPARIN NA (PORCINE) 5,000 UNITS/ML 1ML VIAL SQ SCH ×2 (12:27→21:04)
[2018-09-12] MEDS ORDERED: NIFEdipine 10 MG CAPSULE (FP) PO SCH (14:00)
[2018-09-12] MEDS ORDERED: hydrALAZINE HCL 25 MG TABLET (FP) PO SCH (14:00)
[2018-09-12] MEDS ORDERED: CARBIDOPA/LEVODOPA 25/100 TABLET (FP) ONE ×2 (14:35→20:23)
[2018-09-12] MEDS ORDERED: DOCUSATE SODIUM 100 MG CAPSULE (FP) PO ONE ×2 (14:36→20:24)
[2018-09-12] MEDS: INSULIN SLIDING SCALE (NOVOLOG) 1 VIAL SQ SCH ×3 (14:47→21:05)
[2018-09-12] MEDS: LIPASE/PROTEASE/AMYLASE 36,000 UNIT CAPSULE PO SCH ×2 (14:48→20:41)
[2018-09-12] MEDS: LABETALOL HCL 200 MG TABLET (FP) PO SCH ×2 (14:49→21:04)
[2018-09-12] MEDS: DOCUSATE SODIUM 100 MG CAPSULE (FP) PO SCH ×2 (14:49→21:04)
[2018-09-12] MEDS: CARBIDOPA/LEVODOPA 25/100 TABLET (FP) PO SCH ×2 (14:49→21:05)
--- NOTE | 2018-09-12 14:55 | ECHO ---
Name: GIA NEWMAN Exam:Adult Echocardiogram Study Date: 09/12/2018 02:03 PM Age: 78 yrs Reason For Study: chf Height: 60 in Weight: 143 lb BSA: 1.6 m2 MMode/2D Measurements & Calculations IVSd: 0.94 cm Ao root diam: 3.6 cm LVIDd: 4.2 cm LA dimension: 3.4 cm LVIDs: 2.9 cm ACS: 1.2 cm LVPWd: 0.87 cm IVSs: 1.1 cm LVPWs: 1.3 cm EDV(Teich): 80.2 ml ESV(Teich): 31.6 ml Doppler Measurements & Calculations MV E max madi: 133.5 cm/sec Ao V2 max: 151.3 cm/sec MV A max madi: 85.9 cm/sec Ao max P.2 mmHg MV E/A: 1.6 Ao V2 mean: 118.4 cm/sec Ao mean P.9 mmHg Ao V2 VTI: 39.2 cm TR max madi: 310.4 cm/sec Med Peak E' Madi: 5.3 cm/sec TR max P.6 mmHg Med E/e': 25.4 Lat Peak E' Madi: 4.5 cm/sec Lat E/e': 29.7 Procedure A complete two-dimensional transthoracic echocardiogram was performed (2D, M-mode, Doppler and color flow Doppler). Left Ventricle The left ventricle is normal in size. Left ventricular systolic function is normal. Ejection Fraction = 60- 65%. No regional wall motion abnormalities noted. Right Ventricle The right ventricle is normal size. The right ventricular systolic function is normal. Atria The left atrial size is normal. Right atrial size is normal. Mitral Valve There is mild mitral annular calcification. There is mild mitral regurgitation. Tricuspid Valve The tricuspid valve is normal in structure and function. There is mild tricuspid regurgitation. Pulmo nary artery systolic pressure is at least 37 mmHg if RA pressure is assumed 3 mmHg. Aortic Valve There is mild aortic sclerosis.;. No aortic regurgitation is present. Pulmonic Valve The pulmonic valve is not well visualized. Great Vessels The aortic root is normal size. Pericardium/Pleura Small pericardial effusion (<1cm). There is a pleural effusion present. Interpretation Summary The left ventricle is normal in size. Left ventricular systolic function is normal. No regional wall motion abnormalities noted. Ejection Fraction = 60-65%. The right ventricular systolic function is normal. The left atrial size is normal. Right atrial size is normal. There is mild mitral annular calcification. There is mild mitral regurgitation. There is mild tricuspid regurgitation. Pulmonary artery systolic pressure is at least 37 mmHg if RA pressure is assumed 3 mmHg There is mild aortic sclerosis.; Small pericardial effusion (<1cm) There is a pleural effusion present. Noah Singh MD 09/12/2018 02:54 PM
--- NOTE | 2018-09-12 15:48 | CON.CARD ---
Consult Consult Specialty:: Cardiology Referred by:: Dr. Espana Reason for Consultation:: HTN, Chest pain, sob - History of Present Illness Chief Complaint: htn, chest pain, sob History of Present Illness: 78year old woman with a pmh ofHTN, DM, HLD, GI bleeding, diverticulosis, anemia, dementia, Parkinson's disease and pneumonia in April 2018 orthostatic hypotension admitted 06/01/2018 for worsening SOB and leg edema due to acute on chronic diastolic CHF and proteinurea, hypoalbuminemia leading to 3rd spacing including pleural effusionsrecently againadmitted with c/o worsening sob and chest tightness, LE edema. Noted to have JASMIN with associated anasarca, low albumin and proteinurea. Lasix was changed to Torsemide with better effect. She had not been started on an JESUSITA-I/ARB as an allergy to valsartan was reported in [facility] records. The reason for this reported allergy was unable to be identified and her daughter denied her ever having an allergy. Thus last week benicar was started in an attempt to reduce proteinurea and reduce third spacing due to low albumin. over the weekend she was feeling very fatigued and BP was uncontrolled despite all of her medications. Last night c/o sob and chest pain and thus her daughter brought her to the ER. She was seen and examined today in [facility]. Currently sleeping, was up all night. She saw her neurologist recently and was noted to have orthostatic hypotension. She denies any chest pain. Echocardiogram 06/02/2018showed normal LV size, wall motion and systolic function. LVEF = 60-65%. Normal RV. Normal LA and RA in size. No significant valvular abnormalities. Minimal pericardial effusion. - History Source History Provided By: Patient, Family Member Limitations to Obtaining History: No Limitations - Past Medical History [employer] CIRCULAR: Yes: Dementia, Peripheral Neuropathy, Parkinson's Cardio/Vascular: Yes: HTN, Hyperlipdemia Gastrointestinal: Yes: Diverticulosis Psych: Yes: Anxiety Musculoskeletal: Yes: Osteoarthritis Endocrine: Yes: Diabetes Mellitus - Past Surgical History Past Surgical History: Yes: Appendectomy, Cholecystectomy, - Alcohol/Substance Use Hx Alcohol Use: No - Smoking History Smoking history: Unknown if ever smoked Have you smoked in the past 12 months: No Aproximately how many cigarettes per day: 0 - Social History Usual Living Arrangement: With Significant Other 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 History of Recent Travel: No Home Medications - Allergies Allergies/Adverse Reactions: Allergies Allergy/AdvReac Type Severity Reaction Status Date / Time valsartan [From Diovan] Allergy Mild Verified 09/12/18 02:40 - Home Medications Home Medications: Ambulatory Orders Aspirin [ASA -] 81 mg PO DAILY 09/09/15 Donepezil HCl 10 mg PO DAILY 02/01/18 Pantoprazole Sodium [Protonix -] 40 mg PO DAILY #30 tablet.ec 02/09/18 Acetaminophen [Tylenol] 650 mg PO Q4H PRN 06/01/18 Cranberry Fruit Extract [Cranberry Extract] 1 gm PO DAILY 06/01/18 Polyethylene Glycol 3350 [Miralax 119 gm Btl -] 17 gm PO DAILY 06/01/18 Pramipexole Di-HCl [Mirapex] 1 mg PO DAILY 06/01/18 Simvastatin 20 mg PO DAILY 06/01/18 hydrALAZINE HCL [Apresoline -] 50 mg PO TID 06/01/18 Insulin Sliding Scale [Novolog Vial Sliding Scale -] 1 vial SQ TIDAC units Albuterol 0.083% Nebulizer Court [Ventolin 0.083% Nebulizer Soln -] 1 amp IN QID PRN 07/28/18 Aspirin [ASA -] 81 mg PO DAILY tab.chew 08/01/18 Atorvastatin Ca [Lipitor] 20 mg PO HS tablet 08/01/18 Bupropion HCl [Wellbutrin Xl -] 150 mg PO DAILY tab.sr.24h 08/01/18 Donepezil HCl [Aricept -] 10 mg PO DAILY tablet 08/01/18 Ferrous Sulfate [Feosol] 325 mg PO DAILY ud 08/01/18 Insulin (Levemir) [Levemir Vial] 14 units SQ DAILY@0800 units 08/01/18 Lipase/Protease/Amylase [Elaine Sweeney 36,000 Units Capsule] 1 cap PO TIDCM capsule. 08/01/18 Pramipexole Dihydrochloride [Mirapex -] 1 mg PO HS tablet 08/01/18 Spironolactone [Aldactone -] 25 mg PO DAILY #30 tablet MDD 1 08/01/18 Amlodipine Besylate [Norvasc -] 5 mg PO BID #60 tablet 08/02/18 Labetalol HCl [Normodyne -] 200 mg PO BID #60 tablet 08/02/18 Metoclopramide HCl [Reglan -] 10 mg PO TIDAC tablet 08/02/18 Torsemide [Demadex -] 20 mg PO DAILY #30 tablet 08/02/18 Carbidopa/Levodopa [Carbidopa-Levodopa 25-100 Tab] 1 each PO 09/12/18 Divalproex [Depakote -] 250 mg PO DAILY 09/12/18 Mirtazapine 15 mg PO 09/12/18 Nifedipine 30 mg PO 09/12/18 Family Disease History - Family Disease History Family History: Denies Review of Systems - Review of Systems Constitutional: reports: Malaise, Weakness. denies: No Symptoms, Chills, Diaphoresis, Fever, Lethargy, Loss of Appetite, Night Sweats, Unintentional Wgt. Loss, Other Eyes: denies: No Symptoms, Blind Spots, Blurred Vision, Double Vision, Eye Pain , Floaters, Photophobia, Recent Change in Vision, Other HENT: denies: No Symptoms, Difficult Swallowing, Ear Discharge, Ear Pain, Epistaxis, Gingival Bleeding, Hearing Loss, Mouth Swelling, Nasal Congestion, Ocular Prosthesis, Throat Pain, Toothache, Ringing in Ears, Other Neck: denies: No Symptoms, Decreased ROM, Lumps, Pain on Movement, Stiffness, Swollen Glands, Tenderness, Other Cardiovascular: reports: Chest Pain, Edema, Shortness of Breath. denies: No Symptoms, Palpitations, Other Respiratory: reports: SOB. denies: No Symptoms, Cough, Exercise Intolerance, Hemoptysis, Orthopnea, PND, Snoring, SOB on Exertion, Wheezing, Other Gastrointestinal: denies: No Symptoms, Abdominal Pain, Bloating, Constipation, Diarrhea, Dysphagia, Indigestion, Melena, Nausea, Rectal Bleeding, Vomiting, Vomiting Blood, Other Genitourinary: denies: No Symptoms, Burning, Discharge, Dysuria, Flank Pain, Frequency, Hematuria, Incontinence, Lesions, Menses, Pain, Testicular Mass, Testicular Pain, Testicular Swelling, Urgency, Vaginal Bleeding, Other Breasts: denies: No Symptoms Reported, See HPI, Breast Implants, Discharge from Nipple, Lumps, Pain, Skin Changes, Other Musculoskeletal: denies: No Symptoms, Back Pain, Crepitus, Decreased ROM, Extremity Pain, Joint Pain, Joint Swelling, Muscle Pain, Muscle Cramps, Muscle Weakness, Other Integumentary: denies: No Symptoms, Blister, Bruising, Change in Color, Eczema, Erythema, Incision, Lesions, Lump, Pallor, Pruritis, Rash, Wound, Other Neurological: denies: No Symptoms, Change in LOC, Change in Speech, Confusion, Dizziness, Headache, Incoordination, Numbness, Parasthesia, Pre-Existing Deficit , Seizure, Syncope, Tremors, Unsteady Gait, Weakness, Other Endocrine: denies: No Symptoms, Excessive Sweating, Flushing, Increased Hunger, Increased Thirst, Intolerance to Cold, Intolerance to Heat, Unexplained Weight Gain, Unexplained Weight Loss, Other Hematology/Lymphatic: denies: No Symptoms, Easily Bruised, Excessive Bleeding, Swollen Glands, Other Psychiatric: denies: No Symptoms, Altered Sleep Pattern, Anxiety, Depression, Hallucinations, Panic, Paranoia, Suicidal, Other - Risk Factors Known Risk Factors: Yes: Age, Diabetes Mellitus, Hypertension Vital Signs: Vital Signs Temperature 98.1 F 09/12/18 08:15 Pulse Rate 58 L 09/12/18 09:45 Respiratory Rate 16 09/12/18 09:45 Blood Pressure 179/66 H 09/12/18 09:45 O2 Sat by Pulse Oximetry (%) 95 09/12/18 09:53 Constitutional: Yes: No Distress, Calm Eyes: Yes: Conjunctiva Clear, EOM Intact, PERRL HENT: Yes: Atraumatic, Normocephalic Neck: Yes: Supple, Trachea Midline Respiratory: Yes: Regular, Diminished. No: Rales, Rhonchi, SOB, Wheezes Gastrointestinal: Yes: WNL, Normal Bowel Sounds, Soft. No: Distention, Tenderness Cardiovascular: Yes: Regular Rate and Rhythm. No: Bradycardia, Tachycardia, Pulse Irregular, Gallop, Rub, Varicosities JVD: No Carotid Bruit: No PMI: Non-Displaced Heart Sounds: Yes: S1, S2. No: Split S2, S3, S4, Clicks, Gallop, Rub, Bruit Murmur: No: Systolic Murmur, Diastolic Murmur Musculoskeletal: Yes: WNL Extremities: Yes: WNL Edema: Yes Edema: LLE: Trace, RLE: Trace Peripheral Pulses WNL: Yes Peripheral Pulses: 2+ Left Doralis Pedis, 2+ Right Dorsalis Pedis Neurological: Yes: Alert, Oriented Psychiatric: Yes: Alert, Oriented - Other Data Labs, Other Data: CBC, BMP 09/12/18 05:28 09/12/18 03:24 INR, PTT INR 1.09 (0.83-1.09) 09/12/18 03:24 Troponin, BNP 09/12/18 09/12/18 09/12/18 03:24 03:24 03:24 Troponin I < 0.02 B-Natriuretic Peptide 7620.0 H Cancelled Troponin, BNP 09/12/18 09/12/18 09/12/18 03:24 03:24 03:24 Troponin I < 0.02 B-Natriuretic Peptide 7620.0 H Cancelled nsr 63bpm, lvh, ivcd, septal infarct Echo: Report Reviewed Imaging - Results Chest X-ray: Report Reviewed, Image Reviewed EKG: Report Reviewed, Image Reviewed Other: Report Reviewed, Image Reviewed Assessment/Plan 78year old woman with a pmh ofHTN, DM, HLD, GI bleeding, diverticulosis, anemia, dementia, Parkinson's disease and pneumonia in April 2018 orthostatic hypotension admitted 06/01/2018 for worsening SOB and leg edema due to acute on chronic diastolic CHF and proteinurea, hypoalbuminemia leading to 3rd spacing including pleural effusionsrecently againadmitted with c/o worsening sob and chest tightness, LE edema. Noted to have JASMIN with associated anasarca, low albumin and proteinurea. Lasix was changed to Torsemide with better effect. She had not been started on an JESUSITA-I/ARB as an allergy to valsartan was reported in [facility] records. The reason for this reported allergy was unable to be identified and her daughter denied her ever having an allergy. Thus last week benicar was started in an attempt to reduce proteinurea and reduce third spacing due to low albumin. over the weekend she was feeling very fatigued and BP was uncontrolled despite all of her medications. Last night c/o sob and chest pain and thus her daughter brought her to the ER. HTN-difficult to control, often above goal but also with orthostatic hypotension -started on ARB (Benicar) last week as there is no documentation of an actual allergy to valsartan, pts daughter adamantly denies it, and she would benefit in terms of reducing proteinurea -if we do not have Benicar on formulary please start Losartan 100mg daily -increase Nifedipine to 60mg bid -cont Labetalol for now -Hydralazine was stopped last week, hold for now Chest pain-atypical, likely secondary to uncontrolled HTN -no sig changes on ekg -chest pain resolved -cardiac enzymes wnl -echo was repeated today with no sig change from echo 3 months ago Echocardiogram 06/02/2018showed normal LV size, wall motion and systolic function. LVEF = 60-65%. Normal RV. Normal LA and RA in size. No significant valvular abnormalities. Minimal pericardial effusion. -no further ischemic work up is needed at this time SOB and edema: multifactorial -component of acute on chronic diastolic CHF in the setting of low oncotic pressure (severe hypoalbuminemia) leading to third spacing and anasarca including pleural effusion and LE edema -volume status had been improving withTorsemide -concern that aggressive diuresis will lead to intravascular depletion secondary to low oncotic pressure -Nutritional support -she was noted to have proteinurea with low serum albumin. -Resume her home Benicar or if not available then Losartan
[2018-09-12] MEDS: ALBUTEROL SO4 0.083% IH SOL 2.5 MG/3 ML VIAL.NEB. NEB PRN (18:49)
[2018-09-12] MEDS ORDERED: ATORVASTATIN CA 20 MG TABLET (FP) ONE (20:23)
[2018-09-12] MEDS ORDERED: MIRTAZAPINE 15 MG TABLET (FP) ONE (20:24)
[2018-09-12] MEDS: ATORVASTATIN CA 20 MG TABLET (FP) PO SCH (21:04)
[2018-09-12] MEDS: MIRTAZAPINE 15 MG TABLET (FP) PO SCH (21:05)
[2018-09-12] MEDS ORDERED: NIFEdipine E.R. 30 MG TABLET (FP) PO SCH (22:00)
[2018-09-12] MEDS ORDERED: PRAMIPEXOLE DIHYDROCHLORIDE 0.5 MG TABLET PO SCH (22:00)
[2018-09-13 00:36] VITALS: BMI 27.0
[2018-09-13] MEDS: INSULIN SLIDING SCALE (NOVOLOG) 1 VIAL SQ SCH ×4 (06:17→22:23)
[2018-09-13] MEDS ORDERED: NIFEdipine E.R 60 MG TABLET (UD) PO ONE (06:22)
--- NOTE | 2018-09-13 06:22 | HOSP ---
Subjective - Review of Symptoms Events since last encounter: Hospitalist Encounter Notified by RN, that the patient's BP is 225/92 and is having difficulty breathing Arrived to bedside, patient is alert, awake and oriented reports having SOB x 1 month, with b/l LE edema. Patient denies CP. Plan: Albuterol neb Procardia 60mg now Place pt on 2LNC post neb Pulmonary: Yes: Dyspnea Physical Examination Vital Signs: Vital Signs Temperature 97.9 F 09/13/18 02:02 Pulse Rate 60 09/13/18 02:02 Respiratory Rate 20 09/13/18 02:02 Blood Pressure 191/72 H 09/13/18 02:02 O2 Sat by Pulse Oximetry (%) 95 09/13/18 01:00 Constitutional: Yes: Anxious, Mild Distress Eyes: Yes: WNL, Conjunctiva Clear, EOM Intact, PERRL HENT: Yes: WNL, Atraumatic, Normocephalic Neck: Yes: WNL, Supple, Trachea Midline Cardiovascular: Yes: Regular Rate and Rhythm, S1, S2 Respiratory: Yes: Diminished, Rhonchi, SOB, SOB on Exertion Gastrointestinal: Yes: Normal Bowel Sounds, Soft Edema: Yes Edema: LLE: 3+, RLE: 3+ Peripheral Pulses WNL: Yes Neurological: Yes: WNL, Alert, Oriented, Cran Nerves II-XII Intact ...Motor Strength: WNL Psychiatric: Yes: WNL, Alert, Oriented Labs: CBC, BMP 09/12/18 05:28 09/12/18 03:24 Hospitalist Encounter Outcome: Patient resting comfortably post treatments Continue to monitor BP
[2018-09-13] MEDS: ALBUTEROL SO4 0.083% IH SOL 2.5 MG/3 ML VIAL.NEB. NEB PRN ×2 (06:30→20:35)
[2018-09-13] MEDS: LABETALOL HCL 200 MG TABLET (FP) PO SCH ×3 (06:35→21:37)
[2018-09-13] MEDS: DOCUSATE SODIUM 100 MG CAPSULE (FP) PO SCH ×3 (06:35→21:38)
[2018-09-13] MEDS: CARBIDOPA/LEVODOPA 25/100 TABLET (FP) PO SCH ×3 (06:35→21:38)
[2018-09-13] MEDS: INSULIN (LEVEMIR) 100 UNITS/ML UNITS SQ SCH (06:36)
[2018-09-13 06:46] LABS: BASO % 0.8 % (0-2.0); EOS % 5.2 % (0-4.5); HEMATOCRIT 24.4 % (32.4-45.2); HEMOGLOBIN 8.1 GM/dL (10.7-15.3); LYMPH % 23.8 % (8-40); MCH 26.3 pg (25.7-33.7); MCHC 33.4 g/dl (32.0-36.0); MEAN CELL VOLUME 78.7 fl (80-96); MEAN PLT VOLUME 6.8 fl (7.5-11.1); MONO % 11.9 % (3.8-10.2); NEUT % 58.3 % (42.8-82.8); RDW 17.4 % (11.6-15.6); WHITE BLOOD COUNT 5.9 K/mm3 (4.0-10.0)
[2018-09-13 07:15] LABS: ALBUMIN 2.7 g/dl (3.4-5.0); ALK PHOS 95 U/L (45-117); ANION GAP 6 MMOL/L (8-16); BILIRUBIN,TOTAL 0.4 mg/dL (0.2-1); BLOOD UREA NITROGEN 23.1 mg/dL (7-18); CALCIUM 8.4 mg/dL (8.5-10.1); CHLORIDE 105 mmol/L (98-107); CO2 32 mmol/L (21-32); CREATININE 1.3 mg/dL (0.55-1.3); GLUCOSE,RANDOM 117 mg/dL (74-106); MAGNESIUM 2.3 mg/dL (1.8-2.4); N-TERMINAL BNP 7791.1 pg/ml (5-450); PHOSPHOROUS 3.8 mg/dL (2.5-4.9); SGOT/AST 9 U/L (15-37); SGPT/ALT < 6 U/L (13-61); SODIUM 143 mmol/L (136-145); TOT PROT 6.1 g/dl (6.4-8.2)
[2018-09-13] MEDS ORDERED: PT OWN MED DRAWER 7, Y5N ONE ×4 (07:52→23:10)
--- NOTE | 2018-09-13 08:43 | PN ---
Progress Note, Physician History of Present Illness: 78year old woman with a pmh ofHTN, DM, HLD, GI bleeding, diverticulosis, anemia, dementia, Parkinson's disease and pneumonia in April 2018 orthostatic hypotension admitted 06/01/2018 for worsening SOB and leg edema due to acute on chronic diastolic CHF and proteinurea, hypoalbuminemia leading to 3rd spacing including pleural effusionsrecently againadmitted with c/o worsening sob and chest tightness, LE edema. Noted to have JASMIN with associated anasarca, low albumin and proteinurea. Lasix was changed to Torsemide with better effect. She had not been started on an JESUSITA-I/ARB as an allergy to valsartan was reported in [facility] records. The reason for this reported allergy was unable to be identified and her daughter denied her ever having an allergy. Thus last week benicar was started in an attempt to reduce proteinurea and reduce third spacing due to low albumin. over the weekend she was feeling very fatigued and BP was uncontrolled despite all of her medications. Last night c/o sob and chest pain and thus her daughter brought her to the ER. Echocardiogram 06/02/2018showed normal LV size, wall motion and systolic function. LVEF = 60-65%. Normal RV. Normal LA and RA in size. No significant valvular abnormalities. Minimal pericardial effusion. noted with very high BP last night. - Current Medication List Current Medications: Active Medications Acetaminophen (Tylenol -) 650 mg PO Q4H PRN PRN Reason: PAIN 1-3 Albuterol Sulfate (Ventolin 0.083% Nebulizer Soln -) 1 amp NEB Q6H PRN PRN Reason: SHORTNESS OF BREATH Last Admin: 09/13/18 06:30 Dose: 1 amp Aspirin (Asa -) 81 mg PO DAILY [facility] Last Admin: 09/12/18 12:27 Dose: 81 mg Atorvastatin Calcium (Lipitor -) 20 mg PO HS [facility] Last Admin: 09/12/18 21:04 Dose: 20 mg Bupropion HCl (Wellbutrin Xl -) 150 mg PO DAILY [facility] Last Admin: 09/12/18 12:28 Dose: 150 mg Carbidopa/Levodopa (Sinemet 25/100 -) 1 each PO TID [facility] Last Admin: 09/13/18 06:35 Dose: 1 each Divalproex Sodium (Depakote -) 250 mg PO DAILY [facility] Last Admin: 09/12/18 12:27 Dose: 250 mg Docusate Sodium (Colace -) 100 mg PO TID [facility] Last Admin: 09/13/18 06:35 Dose: 100 mg Donepezil HCl (Aricept -) 10 mg PO DAILY [facility] Last Admin: 09/12/18 12:27 Dose: 10 mg Heparin Sodium (Porcine) (Heparin -) 5,000 unit SQ BID [facility] Last Admin: 09/12/18 21:04 Dose: 5,000 unit Insulin Aspart (Novolog Vial Sliding Scale -) 1 vial SQ ACHS [facility]; Protocol Last Admin: 09/13/18 06:17 Dose: Not Given Insulin Detemir (Levemir Vial) 14 units SQ DAILY@0700 [facility] Last Admin: 09/13/18 06:36 Dose: 14 units Labetalol HCl (Normodyne -) 200 mg PO TID [facility] Last Admin: 09/13/18 06:35 Dose: 200 mg Losartan Potassium (Cozaar -) 100 mg PO DAILY [facility] Mirtazapine (Remeron -) 15 mg PO HS [facility] Last Admin: 09/12/18 21:05 Dose: 15 mg Nifedipine (Procardia Xl -) 60 mg PO BID [facility] Nitroglycerin (Nitrostat -) 0.4 mg SL Q5M PRN PRN Reason: FOR CHEST PAIN Pancrelipase (Creon Dr 36,000 Units Capsule) 1 cap PO TIDCM [facility] Last Admin: 09/12/18 20:41 Dose: 1 cap Pantoprazole Sodium (Protonix -) 40 mg PO DAILY [facility] Last Admin: 09/12/18 12:27 Dose: 40 mg Torsemide (Demadex -) 20 mg PO DAILY [facility] - Objective Vital Signs: Vital Signs Temperature 98.2 F 09/13/18 06:00 Pulse Rate 60 09/13/18 07:23 Respiratory Rate 22 H 09/13/18 07:23 Blood Pressure 225/92 H 09/13/18 07:23 O2 Sat by Pulse Oximetry (%) 90 L 09/13/18 07:23 Constitutional: Yes: No Distress, Calm Eyes: Yes: Conjunctiva Clear, EOM Intact HENT: Yes: Atraumatic, Normocephalic Neck: Yes: Trachea Midline Cardiovascular: Yes: Regular Rate and Rhythm Respiratory: Yes: CTA Bilaterally Gastrointestinal: Yes: Normal Bowel Sounds, Soft Breast(s): Yes: WNL Musculoskeletal: Yes: WNL Extremities: Yes: WNL Edema: No Peripheral Pulses WNL: Yes Labs: CBC, BMP 09/13/18 05:10 09/13/18 05:10 INR, PTT INR 1.09 (0.83-1.09) 09/12/18 03:24 Assessment/Plan 78year old woman with a pmh ofHTN, DM, HLD, GI bleeding, diverticulosis, anemia, dementia, Parkinson's disease and pneumonia in April 2018 orthostatic hypotension admitted 06/01/2018 for worsening SOB and leg edema due to acute on chronic diastolic CHF and proteinurea, hypoalbuminemia leading to 3rd spacing including pleural effusionsrecently againadmitted with c/o worsening sob and chest tightness, LE edema. Noted to have JASMIN with associated anasarca, low albumin and proteinurea. Lasix was changed to Torsemide with better effect. She had not been started on an JESUSITA-I/ARB as an allergy to valsartan was reported in [facility] records. The reason for this reported allergy was unable to be identified and her daughter denied her ever having an allergy. Thus last week benicar was started in an attempt to reduce proteinurea and reduce third spacing due to low albumin. over the weekend she was feeling very fatigued and BP was uncontrolled despite all of her medications. Last night c/o sob and chest pain and thus her daughter brought her to the ER. HTN-difficult to control, often above goal but also with orthostatic hypotension -started on ARB (Benicar) last week as there is no documentation of an actual allergy to valsartan, pts daughter adamantly denies it, and she would benefit in terms of reducing proteinurea -continue Losartan 100mg daily -increase Nifedipine to 60mg bid -cont Labetalol for now, increase to 400 mg tid -Hydralazine was stopped last week, hold for now Chest pain-atypical, likely secondary to uncontrolled HTN -no sig changes on ekg -chest pain resolved -cardiac enzymes wnl -echo was repeated today with no sig change from echo 3 months ago Echocardiogram 06/02/2018showed normal LV size, wall motion and systolic function. LVEF = 60-65%. Normal RV. Normal LA and RA in size. No significant valvular abnormalities. Minimal pericardial effusion. -no further ischemic work up is needed at this time SOB and edema: multifactorial -component of acute on chronic diastolic CHF in the setting of low oncotic pressure (severe hypoalbuminemia) leading to third spacing and anasarca including pleural effusion and LE edema -volume status had been improving withTorsemide -concern that aggressive diuresis will lead to intravascular depletion secondary to low oncotic pressure -Nutritional support -she was noted to have proteinurea with low serum albumin. -continue Losartan
[2018-09-13] MEDS: LIPASE/PROTEASE/AMYLASE 36,000 UNIT CAPSULE PO SCH ×3 (09:15→18:17)
[2018-09-13] MEDS: TORSEMIDE 20 MG TABLET (FP) PO SCH (09:36)
[2018-09-13] MEDS: HEPARIN NA (PORCINE) 5,000 UNITS/ML 1ML VIAL SQ SCH ×2 (09:36→21:37)
[2018-09-13] MEDS: DIVALPROEX SODIUM 250 MG TABLET E.C. PO SCH (09:37)
[2018-09-13] MEDS: ASPIRIN 81 MG CHEWABLE TABLETS PO SCH (09:37)
[2018-09-13] MEDS: PANTOPRAZOLE 40 MG TABLET (FP) PO SCH (09:37)
[2018-09-13] MEDS: LOSARTAN POTASSIUM 50 MG TABLET (FP) PO SCH (09:37)
[2018-09-13] MEDS: DONEPEZIL HCL 10 MG TABLET (FP) PO SCH (09:37)
[2018-09-13] MEDS: NIFEdipine E.R 60 MG TABLET (UD) PO SCH ×2 (09:38→21:38)
--- NOTE | 2018-09-13 12:26 | PN ---
Progress Note, Physician Chief Complaint: Chest pain Uncontrolled HTN History of Present Illness: NAD Has been complaining of right sided chest pain-musculoskeletal Tylenol+ tramadol on board Trops negative Seen by Cardiology BP better under control - Current Medication List Current Medications: Active Medications Acetaminophen (Tylenol -) 650 mg PO Q4H PRN PRN Reason: PAIN 1-3 Albuterol Sulfate (Ventolin 0.083% Nebulizer Soln -) 1 amp NEB Q6H PRN PRN Reason: SHORTNESS OF BREATH Last Admin: 09/13/18 06:30 Dose: 1 amp Aspirin (Asa -) 81 mg PO DAILY [facility] Last Admin: 09/13/18 09:37 Dose: 81 mg Atorvastatin Calcium (Lipitor -) 20 mg PO HS [facility] Last Admin: 09/12/18 21:04 Dose: 20 mg Bupropion HCl (Wellbutrin Xl -) 150 mg PO DAILY [facility] Last Admin: 09/13/18 09:37 Dose: 150 mg Carbidopa/Levodopa (Sinemet 25/100 -) 1 each PO TID [facility] Last Admin: 09/13/18 06:35 Dose: 1 each Divalproex Sodium (Depakote -) 250 mg PO DAILY [facility] Last Admin: 09/13/18 09:37 Dose: 250 mg Docusate Sodium (Colace -) 100 mg PO TID [facility] Last Admin: 09/13/18 06:35 Dose: 100 mg Donepezil HCl (Aricept -) 10 mg PO DAILY [facility] Last Admin: 09/13/18 09:37 Dose: 10 mg Heparin Sodium (Porcine) (Heparin -) 5,000 unit SQ BID [facility] Last Admin: 09/13/18 09:36 Dose: 5,000 unit Insulin Aspart (Novolog Vial Sliding Scale -) 1 vial SQ [facility]; Protocol Last Admin: 09/13/18 11:37 Dose: Not Given Insulin Detemir (Levemir Vial) 14 units SQ DAILY@0700 [facility] Last Admin: 09/13/18 06:36 Dose: 14 units Labetalol HCl (Normodyne -) 400 mg PO TID [facility] Losartan Potassium (Cozaar -) 100 mg PO DAILY [facility] Last Admin: 09/13/18 09:37 Dose: 100 mg Mirtazapine (Remeron -) 15 mg PO HS [facility] Last Admin: 09/12/18 21:05 Dose: 15 mg Nifedipine (Procardia Xl -) 60 mg PO BID [facility] Last Admin: 09/13/18 09:38 Dose: 60 mg Nitroglycerin (Nitrostat -) 0.4 mg SL Q5M PRN PRN Reason: FOR CHEST PAIN Pancrelipase (Creon Dr 36,000 Units Capsule) 1 cap PO TIDCM [facility] Last Admin: 09/13/18 09:15 Dose: Not Given Pantoprazole Sodium (Protonix -) 40 mg PO DAILY [facility] Last Admin: 09/13/18 09:37 Dose: 40 mg Torsemide (Demadex -) 20 mg PO DAILY [facility] Last Admin: 09/13/18 09:36 Dose: 20 mg - Objective Vital Signs: Vital Signs Temperature 98 F 09/13/18 09:00 Pulse Rate 56 L 09/13/18 09:00 Respiratory Rate 18 09/13/18 09:00 Blood Pressure 181/67 H 09/13/18 09:00 O2 Sat by Pulse Oximetry (%) 96 09/13/18 09:00 Constitutional: Yes: Well Nourished, No Distress, Calm Cardiovascular: Yes: Regular Rate and Rhythm Respiratory: Yes: Regular, On Nasal O2, SOB on Exertion Gastrointestinal: Yes: Normal Bowel Sounds, Soft Genitourinary: Yes: Incontinence Musculoskeletal: Yes: Muscle Weakness Extremities: Yes: WNL Edema: Yes Edema: LLE: 1+, RLE: 1+ Peripheral Pulses WNL: Yes Neurological: Yes: Alert, Oriented Psychiatric: Yes: Alert, Oriented Labs: CBC, BMP 09/13/18 05:10 09/13/18 05:10 INR, PTT INR 1.09 (0.83-1.09) 09/12/18 03:24 Problem List - Problems (1) Acute on chronic diastolic (congestive) heart failure Assessment/Plan: -Seen by Cardiology -On Torsemide 20 mg po daily -Nasal O2 -Lower ext edema -ARB+BB+CCB Code(s): I50.33 - ACUTE ON CHRONIC DIASTOLIC (CONGESTIVE) HEART FAILURE (2) Diabetes Assessment/Plan: -BGM AC HS -Diabetic low sodium diet -Insulin sliding scale -Continue levemir Code(s): E11.9 - TYPE 2 DIABETES MELLITUS WITHOUT COMPLICATIONS Qualifiers: Diabetes mellitus type: type 2 (3) Chest pain Assessment/Plan: -Musculoskeletal -tylenol PRN -Trops negative -seen by Cardiology -Tele monitor Code(s): R07.9 - CHEST PAIN, UNSPECIFIED Qualifiers: Chest pain type: unspecified Qualified Code(s): R07.9 - Chest pain, unspecified (4) HTN (hypertension) Assessment/Plan: -Seen by cardiology -Labetalol increased to 400 mg po TID -Low sodium diabetic diet -Continue to monitor Code(s): I10 - ESSENTIAL (PRIMARY) HYPERTENSION Assessment/Plan See problem list Physical therapy
[2018-09-13 12:38] LABS: PLATELET ESTIMATE NORMAL
[2018-09-13 12:42] LABS: PLATELET COUNT 478 K/MM3 (134-434)
--- NOTE | 2018-09-13 13:44 | PN ---
Progress Note (short form) - Note Progress Note: PULMONARY CONSULTATION DICTATED 09/13/18 IMP DYSPNEA ACUTE ON CHRONIC DIASTOLIC HF POORLY CONTROLLED HTN BILATERAL PLEURAL EFFUSIONS CHEST PAIN ANEMIA H/O GI BLEED DM ANASARCA PARKINSONS DEMENTIA PLAN DIURETICS TITRATE BP MEDS O2 DAILY WT F/U CHEST X-RAY STRICT I+OS MONITOR BETTINA CAMPA Problem List - Problems (1) CHF exacerbation Code(s): I50.9 - HEART FAILURE, UNSPECIFIED Qualifiers: Heart failure type: unspecified Qualified Code(s): I50.9 - Heart failure, unspecified (2) Chest pain Code(s): R07.9 - CHEST PAIN, UNSPECIFIED Qualifiers: Chest pain type: unspecified Qualified Code(s): R07.9 - Chest pain, unspecified (3) Acute on chronic diastolic (congestive) heart failure Code(s): I50.33 - ACUTE ON CHRONIC DIASTOLIC (CONGESTIVE) HEART FAILURE (4) Anemia Code(s): D64.9 - ANEMIA, UNSPECIFIED Qualifiers: Anemia type: iron deficiency (5) Anemia Code(s): D64.9 - ANEMIA, UNSPECIFIED (6) Chronic edema Code(s): R60.9 - EDEMA, UNSPECIFIED (7) Dementia Code(s): F03.90 - UNSPECIFIED DEMENTIA WITHOUT BEHAVIORAL DISTURBANCE (8) Diabetes Code(s): E11.9 - TYPE 2 DIABETES MELLITUS WITHOUT COMPLICATIONS Qualifiers: Diabetes mellitus type: type 2 (9) HTN (hypertension) Code(s): I10 - ESSENTIAL (PRIMARY) HYPERTENSION (10) Parkinson disease Code(s): G20 - PARKINSON'S DISEASE (11) Pleural effusion Code(s): J90 - PLEURAL EFFUSION, NOT ELSEWHERE CLASSIFIED (12) SOB (shortness of breath) Code(s): R06.02 - SHORTNESS OF BREATH
--- NOTE | 2018-09-13 16:46 | CONS ---
DATE OF CONSULTATION: 09/13/2018 REFERRING PHYSICIAN: oR Espana M.D. HISTORY OF PRESENT ILLNESS: The patient is a 78-year-old female with extensive past medical history which includes diabetes, hypertension, hyperlipidemia, history of GI bleed, diverticulosis, anemia, dementia, Parkinson's, history of pneumonia 2019, orthostatic hypotension, anasarca, hypoalbuminemia, admitted to [facility] with complaint of increasing shortness of breath, generalized weakness and chest discomfort. Patient presented to the emergency room with the above. Of notice, patient was recently hospitalized in April 2018 secondary to shortness of breath. At the time she was noted to have acute on chronic CHF and proteinuria and hypoalbuminemia third spacing and developing bilateral pleural effusions. She apparently is recently started on Benicar to help reduce her proteinuria and third spacing about a week ago. Of note, she was also noted to be chronically hypertensive on admission. She was admitted unit for further management. On current hospitalization, he was evaluated by Dr. Kincaid form cardiology who felt that the patient had poorly controlled hypertension. He was also felt to have chest pain likely secondary to uncontrolled hypertension. No further history available at this time. PAST MEDICAL HISTORY: Again includes hypertension, diabetes, hyperlipidemia, GI bleed, diverticulosis, anemia, dementia, and Parkinson's. REVIEW OF SYSTEMS: No orthopnea. Positive dyspnea on exertion. No chest pain. Positive chest tightness. No cough. No hemoptysis. No fever. No chills. No weight loss. No night sweats. CURRENT MEDICATIONS: Include Demodex, Nitrostat, aspirin, Aricept, Protonix, Levemir, NovoLog, Lipitor, Sinemet, Procardia, Creon, Colace, Normodyne, and albuterol, Remeron, Wellbutrin, and Depakote, heparin subcutaneous, Cozaar, and Tylenol. PHYSICAL EXAMINATION: GENERAL: The patient is an elderly female awake, alert, in no acute distress. She is currently afebrile. VITAL SIGNS: Blood pressure max is 225/92, currently 181/67, and O2 saturation is 96% on room air. HEENT: Normocephalic, atraumatic. NECK: Supple. HEART: Regular S1, S2. CHEST: Bibasilar crackles. ABDOMEN: Soft, bowel sounds positive. EXTREMITIES: Bilateral lower extremity edema. LABORATORY: WBC: BUN 23, creatinine 1.3, albumin of 2.7. WBC is 5.9, hemoglobin 8.1, hematocrit 24.2, platelet count of 478,000. Chest x-ray: cardiomegaly, increased bilateral congestion, effusions. IMPRESSION: 1. Uncontrolled hypertension secondary to likely acute on chronic diastolic heart failure. 2. Poorly controlled hypertension. 3. Bilateral pleural effusions, likely secondary to congestive heart failure, as well as hypoalbuminemia. 4. Anemia. 5. Anasarca. 6. Diabetes. 7. Parkinson's. 8. Dementia. PLAN: Diuretics, titrate blood pressure medications, supplemental O2, daily weight, follow up chest x-ray, strict I's and O's. Monitor electrolytes. JONNY CAMPA M.D. [id number]
[2018-09-13] MEDS: ATORVASTATIN CA 20 MG TABLET (FP) PO SCH (21:38)
[2018-09-13] MEDS: MIRTAZAPINE 15 MG TABLET (FP) PO SCH (21:38)
--- NOTE | 2018-09-13 22:52 | HOSP ---
Subjective - Review of Symptoms Events since last encounter: CAlled for pt c/o chest pain after being cleaned in bed. Pt did not get out of bed and was assisted in being repositioned for hygiene care. Pain described as right sided 9/10, BP 192/58mmHg, denies dyspnea and on exam she is on supplemental O2. She is calm and in no distress, laying comfortable in bed. Slow regular heart sounds, breath sounds diminshed at bases. +1 edema LE bilaterally Her chest pain is reproducible and she does appear to have some costochrondral component STAT EKG: unchanged from prior. Pt given 1 SL nitro (repeat BP 152/63) + morphine 1mg IVP with resolution of symptoms. If pain recurs will send cardiac enzymes. Physical Examination Vital Signs: Vital Signs Temperature 98.4 F 09/13/18 17:00 Pulse Rate 48 L 09/13/18 17:00 Respiratory Rate 20 09/13/18 17:00 Blood Pressure 136/55 L 09/13/18 17:00 O2 Sat by Pulse Oximetry (%) 96 09/13/18 09:00 Labs: CBC, BMP 09/13/18 05:10 09/13/18 05:10
[2018-09-13] MEDS ORDERED: MORPHINE SULFATE 2 MG/ML VIAL IVPUSH ONE (23:03)
[2018-09-14] MEDS: CARBIDOPA/LEVODOPA 25/100 TABLET (FP) PO SCH ×3 (06:38→21:34)
[2018-09-14] MEDS: DOCUSATE SODIUM 100 MG CAPSULE (FP) PO SCH ×4 (06:39→21:43)
[2018-09-14] MEDS: INSULIN SLIDING SCALE (NOVOLOG) 1 VIAL SQ SCH ×4 (06:39→21:36)
[2018-09-14] MEDS: LABETALOL HCL 200 MG TABLET (FP) PO SCH ×3 (06:39→21:35)
[2018-09-14] MEDS ORDERED: INSULIN (NOVOLOG) ASPART 100 UNITS/ML 10ML VIAL ONE (06:41)
[2018-09-14] MEDS: INSULIN (LEVEMIR) 100 UNITS/ML UNITS SQ SCH (06:42)
[2018-09-14] MEDS: LIPASE/PROTEASE/AMYLASE 36,000 UNIT CAPSULE PO SCH ×3 (08:29→17:28)
[2018-09-14] MEDS ORDERED: PT OWN MED DRAWER 7, Y5N ONE (09:19)
[2018-09-14] MEDS: DIVALPROEX SODIUM 250 MG TABLET E.C. PO SCH (09:28)
[2018-09-14] MEDS: ASPIRIN 81 MG CHEWABLE TABLETS PO SCH (09:28)
[2018-09-14] MEDS: PANTOPRAZOLE 40 MG TABLET (FP) PO SCH (09:28)
[2018-09-14] MEDS: DONEPEZIL HCL 10 MG TABLET (FP) PO SCH (09:29)
[2018-09-14] MEDS: NIFEdipine E.R 60 MG TABLET (UD) PO SCH ×2 (09:29→21:35)
[2018-09-14] MEDS: LOSARTAN POTASSIUM 50 MG TABLET (FP) PO SCH (09:29)
[2018-09-14] MEDS: HEPARIN NA (PORCINE) 5,000 UNITS/ML 1ML VIAL SQ SCH ×2 (09:29→21:34)
[2018-09-14] MEDS: TORSEMIDE 20 MG TABLET (FP) PO SCH (09:30)
--- NOTE | 2018-09-14 11:06 | PN ---
Progress Note, Physician Chief Complaint: Chest pain Uncontrolled HTN History of Present Illness: NAD Has been complaining of right sided chest pain-musculoskeletal Trops negative Seen by Cardiology - Current Medication List Current Medications: Active Medications Acetaminophen (Tylenol -) 650 mg PO Q4H PRN PRN Reason: PAIN 1-3 Albuterol Sulfate (Ventolin 0.083% Nebulizer Soln -) 1 amp NEB Q6H PRN PRN Reason: SHORTNESS OF BREATH Last Admin: 09/13/18 20:35 Dose: 1 amp Aspirin (Asa -) 81 mg PO DAILY [facility] Last Admin: 09/14/18 09:28 Dose: 81 mg Atorvastatin Calcium (Lipitor -) 20 mg PO HS [facility] Last Admin: 09/13/18 21:38 Dose: 20 mg Bupropion HCl (Wellbutrin Xl -) 150 mg PO DAILY [facility] Last Admin: 09/14/18 09:28 Dose: 150 mg Carbidopa/Levodopa (Sinemet 25/100 -) 1 each PO TID [facility] Last Admin: 09/14/18 06:38 Dose: 1 each Divalproex Sodium (Depakote -) 250 mg PO DAILY [facility] Last Admin: 09/14/18 09:28 Dose: 250 mg Docusate Sodium (Colace -) 100 mg PO TID [facility] Last Admin: 09/14/18 06:39 Dose: 100 mg Donepezil HCl (Aricept -) 10 mg PO DAILY [facility] Last Admin: 09/14/18 09:29 Dose: 10 mg Heparin Sodium (Porcine) (Heparin -) 5,000 unit SQ BID [facility] Last Admin: 09/14/18 09:29 Dose: 5,000 unit Insulin Aspart (Novolog Vial Sliding Scale -) 1 vial SQ [facility]; Protocol Last Admin: 09/14/18 06:39 Dose: Not Given Insulin Detemir (Levemir Vial) 14 units SQ DAILY@0700 [facility] Last Admin: 09/14/18 06:42 Dose: 14 units Labetalol HCl (Normodyne -) 400 mg PO TID [facility] Last Admin: 09/14/18 06:39 Dose: 400 mg Losartan Potassium (Cozaar -) 100 mg PO DAILY [facility] Last Admin: 09/14/18 09:29 Dose: 100 mg Mirtazapine (Remeron -) 15 mg PO HS [facility] Last Admin: 09/13/18 21:38 Dose: 15 mg Nifedipine (Procardia Xl -) 60 mg PO BID [facility] Last Admin: 09/14/18 09:29 Dose: 60 mg Nitroglycerin (Nitrostat -) 0.4 mg SL Q5M PRN PRN Reason: FOR CHEST PAIN Last Admin: 09/13/18 22:50 Dose: 0.4 mg Pancrelipase (Creon Dr 36,000 Units Capsule) 1 cap PO TIDCM [facility] Last Admin: 09/14/18 08:29 Dose: 1 cap Pantoprazole Sodium (Protonix -) 40 mg PO DAILY [facility] Last Admin: 09/14/18 09:28 Dose: 40 mg Torsemide (Demadex -) 20 mg PO DAILY [facility] Last Admin: 09/14/18 09:30 Dose: 20 mg - Objective Vital Signs: Vital Signs Temperature 98.2 F 09/14/18 08:46 Pulse Rate 53 L 09/14/18 08:46 Respiratory Rate 20 09/14/18 08:46 Blood Pressure 205/77 H 09/14/18 08:46 O2 Sat by Pulse Oximetry (%) 95 09/13/18 21:00 Constitutional: Yes: Well Nourished, No Distress, Calm Cardiovascular: Yes: Regular Rate and Rhythm Respiratory: Yes: Regular, SOB on Exertion Gastrointestinal: Yes: WNL, Normal Bowel Sounds, Soft Genitourinary: Yes: WNL Musculoskeletal: Yes: Muscle Weakness Extremities: Yes: WNL Edema: Yes Edema: LLE: 1+, RLE: 1+ Peripheral Pulses WNL: Yes Neurological: Yes: Alert, Oriented Psychiatric: Yes: Alert, Oriented Labs: CBC, BMP 09/13/18 05:10 09/13/18 05:10 INR, PTT INR 1.09 (0.83-1.09) 09/12/18 03:24 Problem List - Problems (1) Chest pain Assessment/Plan: -Musculoskeletal -Morphine given last night with relief of symptoms -try tylenol first -Avoid narcotics, frequent falls Code(s): R07.9 - CHEST PAIN, UNSPECIFIED Qualifiers: Chest pain type: unspecified Qualified Code(s): R07.9 - Chest pain, unspecified (2) Acute on chronic diastolic (congestive) heart failure Assessment/Plan: -Seen by Cardiology -On Torsemide Code(s): I50.33 - ACUTE ON CHRONIC DIASTOLIC (CONGESTIVE) HEART FAILURE (3) Dementia Assessment/Plan: -Seen by neurology -Continue aricept Code(s): F03.90 - UNSPECIFIED DEMENTIA WITHOUT BEHAVIORAL DISTURBANCE (4) Diabetes Assessment/Plan: -BGM AC HS -Diabetic low sodium diet -Insulin sliding scale -Continue levemir Code(s): E11.9 - TYPE 2 DIABETES MELLITUS WITHOUT COMPLICATIONS Qualifiers: Diabetes mellitus type: type 2 (5) HTN (hypertension) Assessment/Plan: -Seen by cardiology -Labetalol increased to 400 mg po TID -Low sodium diabetic diet -Continue to monitor Code(s): I10 - ESSENTIAL (PRIMARY) HYPERTENSION (6) SOB (shortness of breath) Assessment/Plan: -Improving -Diuresis -Bronchodilators -Pulmonary on board Code(s): R06.02 - SHORTNESS OF BREATH Assessment/Plan See problem list Physical therapy
--- NOTE | 2018-09-14 11:49 | PN ---
Progress Note, Physician History of Present Illness: pulmonary alert,comfortable no distress, pt remains hypertensive - Current Medication List Current Medications: Active Medications Acetaminophen (Tylenol -) 650 mg PO Q4H PRN PRN Reason: PAIN 1-3 Albuterol Sulfate (Ventolin 0.083% Nebulizer Soln -) 1 amp NEB Q6H PRN PRN Reason: SHORTNESS OF BREATH Last Admin: 09/13/18 20:35 Dose: 1 amp Aspirin (Asa -) 81 mg PO DAILY [facility] Last Admin: 09/14/18 09:28 Dose: 81 mg Atorvastatin Calcium (Lipitor -) 20 mg PO HS [facility] Last Admin: 09/13/18 21:38 Dose: 20 mg Bupropion HCl (Wellbutrin Xl -) 150 mg PO DAILY [facility] Last Admin: 09/14/18 09:28 Dose: 150 mg Carbidopa/Levodopa (Sinemet 25/100 -) 1 each PO TID [facility] Last Admin: 09/14/18 06:38 Dose: 1 each Divalproex Sodium (Depakote -) 250 mg PO DAILY [facility] Last Admin: 09/14/18 09:28 Dose: 250 mg Docusate Sodium (Colace -) 100 mg PO TID [facility] Last Admin: 09/14/18 06:39 Dose: 100 mg Donepezil HCl (Aricept -) 10 mg PO DAILY [facility] Last Admin: 09/14/18 09:29 Dose: 10 mg Heparin Sodium (Porcine) (Heparin -) 5,000 unit SQ BID [facility] Last Admin: 09/14/18 09:29 Dose: 5,000 unit Insulin Aspart (Novolog Vial Sliding Scale -) 1 vial SQ [facility]; Protocol Last Admin: 09/14/18 06:39 Dose: Not Given Insulin Detemir (Levemir Vial) 14 units SQ DAILY@0700 [facility] Last Admin: 09/14/18 06:42 Dose: 14 units Labetalol HCl (Normodyne -) 400 mg PO TID [facility] Last Admin: 09/14/18 06:39 Dose: 400 mg Losartan Potassium (Cozaar -) 100 mg PO DAILY [facility] Last Admin: 09/14/18 09:29 Dose: 100 mg Mirtazapine (Remeron -) 15 mg PO HS [facility] Last Admin: 09/13/18 21:38 Dose: 15 mg Nifedipine (Procardia Xl -) 60 mg PO BID [facility] Last Admin: 09/14/18 09:29 Dose: 60 mg Nitroglycerin (Nitrostat -) 0.4 mg SL Q5M PRN PRN Reason: FOR CHEST PAIN Last Admin: 09/13/18 22:50 Dose: 0.4 mg Pancrelipase (Creon Dr 36,000 Units Capsule) 1 cap PO TIDCM [facility] Last Admin: 09/14/18 08:29 Dose: 1 cap Pantoprazole Sodium (Protonix -) 40 mg PO DAILY [facility] Last Admin: 09/14/18 09:28 Dose: 40 mg Torsemide (Demadex -) 20 mg PO DAILY [facility] Last Admin: 09/14/18 09:30 Dose: 20 mg - Objective Vital Signs: Vital Signs Temperature 98.2 F 09/14/18 09:00 Pulse Rate 54 L 09/14/18 09:00 Respiratory Rate 20 09/14/18 09:00 Blood Pressure 205/77 H 09/14/18 09:00 O2 Sat by Pulse Oximetry (%) 95 09/14/18 09:00 Constitutional: Yes: Well Nourished, Calm Eyes: Yes: WNL HENT: Yes: WNL Neck: Yes: WNL Cardiovascular: Yes: Regular Rate and Rhythm, S1, S2 Respiratory: Yes: Rales (bibasilar rales) Gastrointestinal: Yes: Normal Bowel Sounds, Soft Extremities: Yes: WNL Edema: No Labs: CBC, BMP Problem List - Problems (1) CHF exacerbation Code(s): I50.9 - HEART FAILURE, UNSPECIFIED Qualifiers: Heart failure type: unspecified Qualified Code(s): I50.9 - Heart failure, unspecified (2) Chest pain Code(s): R07.9 - CHEST PAIN, UNSPECIFIED Qualifiers: Chest pain type: unspecified Qualified Code(s): R07.9 - Chest pain, unspecified (3) Acute on chronic diastolic (congestive) heart failure Code(s): I50.33 - ACUTE ON CHRONIC DIASTOLIC (CONGESTIVE) HEART FAILURE (4) Anemia Code(s): D64.9 - ANEMIA, UNSPECIFIED Qualifiers: Anemia type: iron deficiency (5) Anemia Code(s): D64.9 - ANEMIA, UNSPECIFIED (6) Chronic edema Code(s): R60.9 - EDEMA, UNSPECIFIED (7) Dementia Code(s): F03.90 - UNSPECIFIED DEMENTIA WITHOUT BEHAVIORAL DISTURBANCE (8) Diabetes Code(s): E11.9 - TYPE 2 DIABETES MELLITUS WITHOUT COMPLICATIONS Qualifiers: Diabetes mellitus type: type 2 (9) HTN (hypertension) Code(s): I10 - ESSENTIAL (PRIMARY) HYPERTENSION (10) Parkinson disease Code(s): G20 - PARKINSON'S DISEASE (11) Pleural effusion Code(s): J90 - PLEURAL EFFUSION, NOT ELSEWHERE CLASSIFIED (12) SOB (shortness of breath) Code(s): R06.02 - SHORTNESS OF BREATH Assessment/Plan IMP DYSPNEA IMPROVING ACUTE ON CHRONIC DIASTOLIC HF POORLY CONTROLLED HTN BILATERAL PLEURAL EFFUSIONS CHEST PAIN ANEMIA H/O GI BLEED DM ANASARCA PARKINSONS DEMENTIA PLAN CONTINUE DIURETICS TITRATE BP MEDS O2 DAILY WT F/U CHEST X-RAY STRICT I+OS MONITOR BETTINA CAMPA Problem List - Problems (1) CHF exacerbation Code(s): I50.9 - HEART FAILURE, UNSPECIFIED Qualifiers: Heart failure type: unspecified Qualified Code(s): I50.9 - Heart failure, unspecified (2) Chest pain Code(s): R07.9 - CHEST PAIN, UNSPECIFIED Qualifiers: Chest pain type: unspecified Qualified Code(s): R07.9 - Chest pain, unspecified (3) Acute on chronic diastolic (congestive) heart failure Code(s): I50.33 - ACUTE ON CHRONIC DIASTOLIC (CONGESTIVE) HEART FAILURE (4) Anemia Code(s): D64.9 - ANEMIA, UNSPECIFIED Qualifiers: Anemia type: iron deficiency (5) Anemia Code(s): D64.9 - ANEMIA, UNSPECIFIED (6) Chronic edema Code(s): R60.9 - EDEMA, UNSPECIFIED (7) Dementia Code(s): F03.90 - UNSPECIFIED DEMENTIA WITHOUT BEHAVIORAL DISTURBANCE (8) Diabetes Code(s): E11.9 - TYPE 2 DIABETES MELLITUS WITHOUT COMPLICATIONS Qualifiers: Diabetes mellitus type: type 2 (9) HTN (hypertension) Code(s): I10 - ESSENTIAL (PRIMARY) HYPERTENSION (10) Parkinson disease Code(s): G20 - PARKINSON'S DISEASE (11) Pleural effusion Code(s): J90 - PLEURAL EFFUSION, NOT ELSEWHERE CLASSIFIED (12) SOB (shortness of breath) Code(s): R06.02 - SHORTNESS OF BREATH
--- NOTE | 2018-09-14 15:55 | PN ---
Progress Note, Physician History of Present Illness: seen and examined today in nad. lying flat, comfortably. no sob. - Current Medication List Current Medications: Active Medications Acetaminophen (Tylenol -) 650 mg PO Q4H PRN PRN Reason: PAIN 1-3 Albuterol Sulfate (Ventolin 0.083% Nebulizer Soln -) 1 amp NEB Q6H PRN PRN Reason: SHORTNESS OF BREATH Last Admin: 09/13/18 20:35 Dose: 1 amp Aspirin (Asa -) 81 mg PO DAILY [facility] Last Admin: 09/14/18 09:28 Dose: 81 mg Atorvastatin Calcium (Lipitor -) 20 mg PO HS [facility] Last Admin: 09/13/18 21:38 Dose: 20 mg Bupropion HCl (Wellbutrin Xl -) 150 mg PO DAILY [facility] Last Admin: 09/14/18 09:28 Dose: 150 mg Carbidopa/Levodopa (Sinemet 25/100 -) 1 each PO TID [facility] Last Admin: 09/14/18 14:31 Dose: 1 each Divalproex Sodium (Depakote -) 250 mg PO DAILY [facility] Last Admin: 09/14/18 09:28 Dose: 250 mg Docusate Sodium (Colace -) 100 mg PO TID [facility] Last Admin: 09/14/18 14:31 Dose: 100 mg Donepezil HCl (Aricept -) 10 mg PO DAILY [facility] Last Admin: 09/14/18 09:29 Dose: 10 mg Heparin Sodium (Porcine) (Heparin -) 5,000 unit SQ BID [facility] Last Admin: 09/14/18 09:29 Dose: 5,000 unit Insulin Aspart (Novolog Vial Sliding Scale -) 1 vial SQ [facility]; Protocol Last Admin: 09/14/18 12:37 Dose: Not Given Insulin Detemir (Levemir Vial) 14 units SQ DAILY@0700 [facility] Last Admin: 09/14/18 06:42 Dose: 14 units Labetalol HCl (Normodyne -) 400 mg PO TID [facility] Last Admin: 09/14/18 14:31 Dose: 400 mg Losartan Potassium (Cozaar -) 100 mg PO DAILY [facility] Last Admin: 09/14/18 09:29 Dose: 100 mg Mirtazapine (Remeron -) 15 mg PO HS [facility] Last Admin: 09/13/18 21:38 Dose: 15 mg Nifedipine (Procardia Xl -) 60 mg PO BID [facility] Last Admin: 09/14/18 09:29 Dose: 60 mg Nitroglycerin (Nitrostat -) 0.4 mg SL Q5M PRN PRN Reason: FOR CHEST PAIN Last Admin: 09/13/18 22:50 Dose: 0.4 mg Pancrelipase (Creon Dr 36,000 Units Capsule) 1 cap PO TIDCM [facility] Last Admin: 09/14/18 12:31 Dose: 1 cap Pantoprazole Sodium (Protonix -) 40 mg PO DAILY [facility] Last Admin: 09/14/18 09:28 Dose: 40 mg Torsemide (Demadex -) 20 mg PO DAILY [facility] Last Admin: 09/14/18 09:30 Dose: 20 mg - Objective Vital Signs: Vital Signs Temperature 97.5 F L 09/14/18 14:00 Pulse Rate 51 L 09/14/18 14:00 Respiratory Rate 20 09/14/18 11:50 Blood Pressure 146/61 09/14/18 14:00 O2 Sat by Pulse Oximetry (%) 95 09/14/18 09:00 Constitutional: Yes: No Distress, Calm Eyes: Yes: Conjunctiva Clear, PERRL HENT: Yes: Atraumatic, Normocephalic Neck: Yes: Supple, Trachea Midline Cardiovascular: Yes: Regular Rate and Rhythm, S1, S2. No: Bradycardia, Tachycardia, Pulse Irregular, Bruit, JVD, Gallop, Murmur, Rub, S3, S4, Varicosities Respiratory: Yes: Regular, Diminished, On Nasal O2. No: Rales, Rhonchi, SOB, Wheezes Gastrointestinal: Yes: Normal Bowel Sounds, Soft. No: Distention, Tenderness Musculoskeletal: Yes: WNL Extremities: Yes: WNL Edema: Yes Edema: LLE: 1+, RLE: 1+ Peripheral Pulses WNL: Yes Peripheral Pulses: Left Doralis Pedis: 2+, Right Dorsalis Pedis: 2+ Neurological: Yes: Alert, Oriented Psychiatric: Yes: Alert, Oriented Labs: CBC, BMP 09/13/18 05:10 09/13/18 05:10 INR, PTT INR 1.09 (0.83-1.09) 09/12/18 03:24 - ....Imaging Chest X-ray: Report Reviewed, Image Reviewed EKG: Report Reviewed, Image Reviewed Other: Report Reviewed, Image Reviewed Assessment/Plan 78year old woman with a pmh ofHTN, DM, HLD, GI bleeding, diverticulosis, anemia, dementia, Parkinson's disease and pneumonia in April 2018 orthostatic hypotension admitted 06/01/2018 for worsening SOB and leg edema due to acute on chronic diastolic CHF and proteinurea, hypoalbuminemia leading to 3rd spacing including pleural effusionsrecently againadmitted with c/o worsening sob and chest tightness, LE edema. Noted to have JASMIN with associated anasarca, low albumin and proteinurea. Lasix was changed to Torsemide with better effect. She had not been started on an JESUSITA-I/ARB as an allergy to valsartan was reported in [facility] records. The reason for this reported allergy was unable to be identified and her daughter denied her ever having an allergy. Thus last week benicar was started in an attempt to reduce proteinurea and reduce third spacing due to low albumin. over the weekend she was feeling very fatigued and BP was uncontrolled despite all of her medications. Last night c/o sob and chest pain and thus her daughter brought her to the ER. HTN-difficult to control, often above goal but also with orthostatic hypotension -better controlled since yesterday -started on ARB (Benicar) last week as there is no documentation of an actual allergy to valsartan, pts daughter adamantly denies it, and she would benefit in terms of reducing proteinurea -continue Losartan 100mg daily (benicar not available on formulary here) -increased Nifedipine to 60mg bid -cont Labetalol which was increased to 400 mg tid -Hydralazine was stopped last week, hold for now Chest pain-atypical, likely secondary to uncontrolled HTN -no sig changes on ekg -chest pain resolved -cardiac enzymes wnl -echo was repeated with no sig change from echo 3 months ago Echocardiogram 06/02/2018showed normal LV size, wall motion and systolic function. LVEF = 60-65%. Normal RV. Normal LA and RA in size. No significant valvular abnormalities. Minimal pericardial effusion. -no further ischemic work up is needed at this time SOB and edema: multifactorial -component of acute on chronic diastolic CHF in the setting of low oncotic pressure (severe hypoalbuminemia) leading to third spacing and anasarca including pleural effusion and LE edema -volume status had been improving as outpatient withTorsemide -cont torsemide 20mg daily for now, if needed can increase to 40mg daily with close monitoring of bun/creat, concern for developing intravascular depletion -concern that aggressive diuresis will lead to intravascular depletion secondary to low oncotic pressure -Nutritional support -she was noted to have proteinurea with low serum albumin. -continue Losartan
[2018-09-14] MEDS ORDERED: ONDANSETRON 4 MG/2 ML VIAL ONE (18:29)
[2018-09-14] MEDS ORDERED: ONDANSETRON 4 MG/2 ML VIAL IVPUSH PRN (18:45)
[2018-09-14] MEDS: ALBUTEROL SO4 0.083% IH SOL 2.5 MG/3 ML VIAL.NEB. NEB PRN (21:15)
[2018-09-14] MEDS: ATORVASTATIN CA 20 MG TABLET (FP) PO SCH (21:34)
[2018-09-14] MEDS: MIRTAZAPINE 15 MG TABLET (FP) PO SCH (21:36)
[2018-09-15] MEDS: CARBIDOPA/LEVODOPA 25/100 TABLET (FP) PO SCH ×3 (06:26→21:48)
[2018-09-15] MEDS: LABETALOL HCL 200 MG TABLET (FP) PO SCH ×3 (06:26→21:48)
[2018-09-15] MEDS: DOCUSATE SODIUM 100 MG CAPSULE (FP) PO SCH ×3 (06:26→21:48)
[2018-09-15] MEDS: INSULIN (LEVEMIR) 100 UNITS/ML UNITS SQ SCH (06:27)
[2018-09-15] MEDS: INSULIN SLIDING SCALE (NOVOLOG) 1 VIAL SQ SCH ×4 (07:03→21:52)
[2018-09-15] MEDS ORDERED: PT OWN MED DRAWER 7, Y5N ONE (08:50)
[2018-09-15] MEDS: LIPASE/PROTEASE/AMYLASE 36,000 UNIT CAPSULE PO SCH ×3 (09:02→17:39)
[2018-09-15] MEDS: DIVALPROEX SODIUM 250 MG TABLET E.C. PO SCH (09:03)
[2018-09-15] MEDS: DONEPEZIL HCL 10 MG TABLET (FP) PO SCH (09:03)
[2018-09-15] MEDS: PANTOPRAZOLE 40 MG TABLET (FP) PO SCH (09:03)
[2018-09-15] MEDS: LOSARTAN POTASSIUM 50 MG TABLET (FP) PO SCH (09:03)
[2018-09-15] MEDS: ASPIRIN 81 MG CHEWABLE TABLETS PO SCH (09:03)
[2018-09-15] MEDS: HEPARIN NA (PORCINE) 5,000 UNITS/ML 1ML VIAL SQ SCH ×2 (09:04→21:52)
[2018-09-15] MEDS: NIFEdipine E.R 60 MG TABLET (UD) PO SCH ×2 (09:04→21:49)
[2018-09-15] MEDS: TORSEMIDE 20 MG TABLET (FP) PO SCH (09:04)
--- NOTE | 2018-09-15 11:53 | PN ---
Progress Note, Physician Chief Complaint: Chest pain Uncontrolled HTN History of Present Illness: NAD Has been complaining of right sided chest pain-musculoskeletal Tylenol+ tramadol on board Trops negative Seen by Cardiology BP better under control - Current Medication List Current Medications: Active Medications Acetaminophen (Tylenol -) 650 mg PO Q4H PRN PRN Reason: PAIN 1-3 Albuterol Sulfate (Ventolin 0.083% Nebulizer Soln -) 1 amp NEB Q6H PRN PRN Reason: SHORTNESS OF BREATH Last Admin: 09/14/18 21:15 Dose: 1 amp Aspirin (Asa -) 81 mg PO DAILY [facility] Last Admin: 09/15/18 09:03 Dose: 81 mg Atorvastatin Calcium (Lipitor -) 20 mg PO HS [facility] Last Admin: 09/14/18 21:34 Dose: 20 mg Bupropion HCl (Wellbutrin Xl -) 150 mg PO DAILY [facility] Last Admin: 09/15/18 09:04 Dose: 150 mg Carbidopa/Levodopa (Sinemet 25/100 -) 1 each PO TID [facility] Last Admin: 09/15/18 06:26 Dose: 1 each Divalproex Sodium (Depakote -) 250 mg PO DAILY [facility] Last Admin: 09/15/18 09:03 Dose: 250 mg Docusate Sodium (Colace -) 100 mg PO TID [facility] Last Admin: 09/15/18 06:26 Dose: 100 mg Donepezil HCl (Aricept -) 10 mg PO DAILY [facility] Last Admin: 09/15/18 09:03 Dose: 10 mg Heparin Sodium (Porcine) (Heparin -) 5,000 unit SQ BID [facility] Last Admin: 09/15/18 09:04 Dose: 5,000 unit Insulin Aspart (Novolog Vial Sliding Scale -) 1 vial SQ [facility]; Protocol Last Admin: 09/15/18 07:03 Dose: Not Given Insulin Detemir (Levemir Vial) 14 units SQ DAILY@0700 [facility] Last Admin: 09/15/18 06:27 Dose: 14 units Labetalol HCl (Normodyne -) 400 mg PO TID [facility] Last Admin: 09/15/18 06:26 Dose: 400 mg Losartan Potassium (Cozaar -) 100 mg PO DAILY [facility] Last Admin: 09/15/18 09:03 Dose: 100 mg Mirtazapine (Remeron -) 15 mg PO HS [facility] Last Admin: 09/14/18 21:36 Dose: Not Given Nifedipine (Procardia Xl -) 60 mg PO BID [facility] Last Admin: 09/15/18 09:04 Dose: 60 mg Nitroglycerin (Nitrostat -) 0.4 mg SL Q5M PRN PRN Reason: FOR CHEST PAIN Last Admin: 09/13/18 22:50 Dose: 0.4 mg Ondansetron HCl (Zofran Injection) 4 mg IVPUSH Q6H PRN PRN Reason: NAUSEA AND/OR VOMITING Last Admin: 09/14/18 19:02 Dose: 4 mg Pancrelipase (Creon Dr 36,000 Units Capsule) 1 cap PO TIDCM [facility] Last Admin: 09/15/18 09:02 Dose: 1 cap Pantoprazole Sodium (Protonix -) 40 mg PO DAILY [facility] Last Admin: 09/15/18 09:03 Dose: 40 mg Torsemide (Demadex -) 20 mg PO DAILY [facility] Last Admin: 09/15/18 09:04 Dose: 20 mg - Objective Vital Signs: Vital Signs Temperature 97.8 F 09/15/18 06:50 Pulse Rate 56 L 09/15/18 06:50 Respiratory Rate 20 09/15/18 08:17 Blood Pressure 164/75 09/15/18 06:50 O2 Sat by Pulse Oximetry (%) 95 09/15/18 08:17 Constitutional: Yes: Well Nourished, No Distress, Calm Cardiovascular: Yes: Regular Rate and Rhythm Respiratory: Yes: Regular, On Nasal O2, SOB on Exertion Genitourinary: Yes: Incontinence Musculoskeletal: Yes: Muscle Weakness Extremities: Yes: WNL Edema: Yes Edema: LLE: 1+, RLE: 1+ Peripheral Pulses WNL: Yes Neurological: Yes: Alert, Oriented Psychiatric: Yes: Alert, Oriented Labs: CBC, BMP 09/13/18 05:10 09/13/18 05:10 INR, PTT INR 1.09 (0.83-1.09) 09/12/18 03:24 Problem List - Problems (1) Chest pain Assessment/Plan: -Musculoskeletal -try tylenol first -Tramadol 50 mg po Q6H PRN Code(s): R07.9 - CHEST PAIN, UNSPECIFIED Qualifiers: Chest pain type: unspecified Qualified Code(s): R07.9 - Chest pain, unspecified (2) Acute on chronic diastolic (congestive) heart failure Assessment/Plan: -Seen by Cardiology -On Torsemide 20 mg po daily -Nasal O2 -Lower ext edema -ARB+BB+CCB Code(s): I50.33 - ACUTE ON CHRONIC DIASTOLIC (CONGESTIVE) HEART FAILURE (3) Dementia Assessment/Plan: -Continue aricept Code(s): F03.90 - UNSPECIFIED DEMENTIA WITHOUT BEHAVIORAL DISTURBANCE (4) Diabetes Assessment/Plan: -BGM AC HS -Diabetic low sodium diet -Insulin sliding scale -Continue levemir Code(s): E11.9 - TYPE 2 DIABETES MELLITUS WITHOUT COMPLICATIONS Qualifiers: Diabetes mellitus type: type 2 (5) HTN (hypertension) Assessment/Plan: -Seen by cardiology -Labetalol increased to 400 mg po TID -Low sodium diabetic diet -Continue to monitor Code(s): I10 - ESSENTIAL (PRIMARY) HYPERTENSION (6) SOB (shortness of breath) Assessment/Plan: -Improving -Diuresis -Bronchodilators -Pulmonary on board -Nasal O2 PRN -Pre and post amb Spo2 Code(s): R06.02 - SHORTNESS OF BREATH Assessment/Plan See problem list Physical therapy Spoke to daughter Val over the phone Likely d/c home in AM
[2018-09-15] MEDS ORDERED: traMADol HCL 50 MG TABLET PO PRN (12:14)
--- NOTE | 2018-09-15 13:02 | PN ---
Progress Note (short form) - Note Progress Note: Stil with some right sided musculoskeletal discomfort. No acute events overnight. Intake & Output 09/12/18 09/13/18 09/14/18 09/15/18 23:59 23:59 23:59 23:59 Intake Total 520 640 300 Balance 520 640 300 Weight 143 lb 143 lb 143 lb 9.6 oz 144 lb Last Vital Signs Temp Pulse Resp BP Pulse Ox 97.8 F 56 L 20 164/75 95 09/15/18 06:50 09/15/18 06:50 09/15/18 08:17 09/15/18 06:50 09/15/18 08:17 Active Medications Acetaminophen (Tylenol -) 650 mg PO Q4H PRN PRN Reason: PAIN 1-3 Last Admin: 09/15/18 12:02 Dose: 650 mg Albuterol Sulfate (Ventolin 0.083% Nebulizer Soln -) 1 amp NEB Q6H PRN PRN Reason: SHORTNESS OF BREATH Last Admin: 09/14/18 21:15 Dose: 1 amp Aspirin (Asa -) 81 mg PO DAILY [facility] Last Admin: 09/15/18 09:03 Dose: 81 mg Atorvastatin Calcium (Lipitor -) 20 mg PO HS [facility] Last Admin: 09/14/18 21:34 Dose: 20 mg Bupropion HCl (Wellbutrin Xl -) 150 mg PO DAILY [facility] Last Admin: 09/15/18 09:04 Dose: 150 mg Carbidopa/Levodopa (Sinemet 25/100 -) 1 each PO TID [facility] Last Admin: 09/15/18 06:26 Dose: 1 each Divalproex Sodium (Depakote -) 250 mg PO DAILY [facility] Last Admin: 09/15/18 09:03 Dose: 250 mg Docusate Sodium (Colace -) 100 mg PO TID [facility] Last Admin: 09/15/18 06:26 Dose: 100 mg Donepezil HCl (Aricept -) 10 mg PO DAILY [facility] Last Admin: 09/15/18 09:03 Dose: 10 mg Heparin Sodium (Porcine) (Heparin -) 5,000 unit SQ BID [facility] Last Admin: 09/15/18 09:04 Dose: 5,000 unit Insulin Aspart (Novolog Vial Sliding Scale -) 1 vial SQ [facility]; Protocol Last Admin: 09/15/18 11:55 Dose: Not Given Insulin Detemir (Levemir Vial) 14 units SQ DAILY@0700 [facility] Last Admin: 09/15/18 06:27 Dose: 14 units Labetalol HCl (Normodyne -) 400 mg PO TID [facility] Last Admin: 09/15/18 06:26 Dose: 400 mg Losartan Potassium (Cozaar -) 100 mg PO DAILY [facility] Last Admin: 09/15/18 09:03 Dose: 100 mg Mirtazapine (Remeron -) 15 mg PO HS [facility] Last Admin: 09/14/18 21:36 Dose: Not Given Nifedipine (Procardia Xl -) 60 mg PO BID [facility] Last Admin: 09/15/18 09:04 Dose: 60 mg Nitroglycerin (Nitrostat -) 0.4 mg SL Q5M PRN PRN Reason: FOR CHEST PAIN Last Admin: 09/13/18 22:50 Dose: 0.4 mg Ondansetron HCl (Zofran Injection) 4 mg IVPUSH Q6H PRN PRN Reason: NAUSEA AND/OR VOMITING Last Admin: 09/14/18 19:02 Dose: 4 mg Pancrelipase (Creon Dr 36,000 Units Capsule) 1 cap PO TIDCM [facility] Last Admin: 09/15/18 11:56 Dose: 1 cap Pantoprazole Sodium (Protonix -) 40 mg PO DAILY [facility] Last Admin: 09/15/18 09:03 Dose: 40 mg Torsemide (Demadex -) 20 mg PO DAILY [facility] Last Admin: 09/15/18 09:04 Dose: 20 mg Tramadol HCl (Ultram -) 50 mg PO Q6H PRN PRN Reason: PAIN LEVEL 6-10 Constitutional: Yes: NAD Eyes: Yes: WNL HENT: Yes: WNL Neck: Yes: WNL Cardiovascular: Yes: Regular Rate and Rhythm, S1, S2 Respiratory: Yes: bibasilar rales Gastrointestinal: Yes: Normal Bowel Sounds, Soft Extremities: Yes: WNL Edema: No Labs: Laboratory Results - last 24 hr 09/14/18 09/14/18 09/15/18 17:02 21:32 05:30 POC Glucometer 151 155 127 09/15/18 11:50 POC Glucometer 133 Problem List - Problems (1) CHF exacerbation Code(s): I50.9 - HEART FAILURE, UNSPECIFIED Qualifiers: Heart failure type: unspecified Qualified Code(s): I50.9 - Heart failure, unspecified (2) Chest pain Code(s): R07.9 - CHEST PAIN, UNSPECIFIED Qualifiers: Chest pain type: unspecified Qualified Code(s): R07.9 - Chest pain, unspecified (3) Acute on chronic diastolic (congestive) heart failure Code(s): I50.33 - ACUTE ON CHRONIC DIASTOLIC (CONGESTIVE) HEART FAILURE (4) Anemia Code(s): D64.9 - ANEMIA, UNSPECIFIED Qualifiers: Anemia type: iron deficiency (5) Anemia Code(s): D64.9 - ANEMIA, UNSPECIFIED (6) Chronic edema Code(s): R60.9 - EDEMA, UNSPECIFIED (7) Dementia Code(s): F03.90 - UNSPECIFIED DEMENTIA WITHOUT BEHAVIORAL DISTURBANCE (8) Diabetes Code(s): E11.9 - TYPE 2 DIABETES MELLITUS WITHOUT COMPLICATIONS Qualifiers: Diabetes mellitus type: type 2 (9) HTN (hypertension) Code(s): I10 - ESSENTIAL (PRIMARY) HYPERTENSION (10) Parkinson disease Code(s): G20 - PARKINSON'S DISEASE (11) Pleural effusion Code(s): J90 - PLEURAL EFFUSION, NOT ELSEWHERE CLASSIFIED (12) SOB (shortness of breath) Code(s): R06.02 - SHORTNESS OF BREATH Assessment/Plan IMP DYSPNEA IMPROVING ACUTE ON CHRONIC DIASTOLIC HF POORLY CONTROLLED HTN BILATERAL PLEURAL EFFUSIONS CHEST PAIN ANEMIA H/O GI BLEED DM ANASARCA PARKINSONS DEMENTIA PLAN DEMADEX O2 NEEDED ANTI-HYPERTENSIVE AGENTS ORDERED DAILY WT FOLLOW I+OS MONITOR BETTINA EMMANUEL
--- NOTE | 2018-09-15 15:35 | PN ---
Progress Note, Physician History of Present Illness: seen and examined in [facility]. lying flat comfortably. states she feels the same, no significantly better. - Current Medication List Current Medications: Active Medications Acetaminophen (Tylenol -) 650 mg PO Q4H PRN PRN Reason: PAIN 1-3 Last Admin: 09/15/18 12:02 Dose: 650 mg Albuterol Sulfate (Ventolin 0.083% Nebulizer Soln -) 1 amp NEB Q6H PRN PRN Reason: SHORTNESS OF BREATH Last Admin: 09/14/18 21:15 Dose: 1 amp Aspirin (Asa -) 81 mg PO DAILY [facility] Last Admin: 09/15/18 09:03 Dose: 81 mg Atorvastatin Calcium (Lipitor -) 20 mg PO HS [facility] Last Admin: 09/14/18 21:34 Dose: 20 mg Bupropion HCl (Wellbutrin Xl -) 150 mg PO DAILY [facility] Last Admin: 09/15/18 09:04 Dose: 150 mg Carbidopa/Levodopa (Sinemet 25/100 -) 1 each PO TID [facility] Last Admin: 09/15/18 13:54 Dose: 1 each Divalproex Sodium (Depakote -) 250 mg PO DAILY [facility] Last Admin: 09/15/18 09:03 Dose: 250 mg Docusate Sodium (Colace -) 100 mg PO TID [facility] Last Admin: 09/15/18 13:54 Dose: 100 mg Donepezil HCl (Aricept -) 10 mg PO DAILY [facility] Last Admin: 09/15/18 09:03 Dose: 10 mg Heparin Sodium (Porcine) (Heparin -) 5,000 unit SQ BID [facility] Last Admin: 09/15/18 09:04 Dose: 5,000 unit Insulin Aspart (Novolog Vial Sliding Scale -) 1 vial SQ [facility]; Protocol Last Admin: 09/15/18 11:55 Dose: Not Given Insulin Detemir (Levemir Vial) 14 units SQ DAILY@0700 [facility] Last Admin: 09/15/18 06:27 Dose: 14 units Labetalol HCl (Normodyne -) 400 mg PO TID [facility] Last Admin: 09/15/18 13:54 Dose: 400 mg Losartan Potassium (Cozaar -) 100 mg PO DAILY [facility] Last Admin: 09/15/18 09:03 Dose: 100 mg Mirtazapine (Remeron -) 15 mg PO HS [facility] Last Admin: 09/14/18 21:36 Dose: Not Given Nifedipine (Procardia Xl -) 60 mg PO BID [facility] Last Admin: 09/15/18 09:04 Dose: 60 mg Nitroglycerin (Nitrostat -) 0.4 mg SL Q5M PRN PRN Reason: FOR CHEST PAIN Last Admin: 09/13/18 22:50 Dose: 0.4 mg Ondansetron HCl (Zofran Injection) 4 mg IVPUSH Q6H PRN PRN Reason: NAUSEA AND/OR VOMITING Last Admin: 09/14/18 19:02 Dose: 4 mg Pancrelipase (Creon Dr 36,000 Units Capsule) 1 cap PO TIDCM [facility] Last Admin: 09/15/18 11:56 Dose: 1 cap Pantoprazole Sodium (Protonix -) 40 mg PO DAILY [facility] Last Admin: 09/15/18 09:03 Dose: 40 mg Torsemide (Demadex -) 20 mg PO DAILY [facility] Last Admin: 09/15/18 09:04 Dose: 20 mg Tramadol HCl (Ultram -) 50 mg PO Q6H PRN PRN Reason: PAIN LEVEL 6-10 - Objective Vital Signs: Vital Signs Temperature 97.8 F 09/15/18 14:46 Pulse Rate 50 L 09/15/18 14:56 Respiratory Rate 18 09/15/18 14:46 Blood Pressure 144/68 09/15/18 14:46 O2 Sat by Pulse Oximetry (%) 98 09/15/18 14:56 Constitutional: Yes: No Distress, Calm Eyes: Yes: Conjunctiva Clear, EOM Intact, PERRL HENT: Yes: Atraumatic, Normocephalic Neck: Yes: Supple, Trachea Midline Cardiovascular: Yes: Regular Rate and Rhythm, S1, S2. No: Bradycardia, Tachycardia, Pulse Irregular, Bruit, JVD, Gallop, Murmur, Rub, S3, S4, Varicosities Respiratory: Yes: Regular, Diminished, On Nasal O2, Rales. No: Rhonchi, SOB, Wheezes Gastrointestinal: Yes: Normal Bowel Sounds, Soft. No: Distention, Tenderness Musculoskeletal: Yes: WNL Extremities: Yes: WNL Edema: Yes Edema: LLE: 2+, RLE: 2+ Peripheral Pulses WNL: Yes Neurological: Yes: Alert, Oriented Psychiatric: Yes: Alert, Oriented Labs: CBC, BMP 09/13/18 05:10 09/13/18 05:10 INR, PTT INR 1.09 (0.83-1.09) 09/12/18 03:24 - ....Imaging Chest X-ray: Report Reviewed, Image Reviewed EKG: Report Reviewed, Image Reviewed Other: Report Reviewed, Image Reviewed Assessment/Plan 78year old woman with a pmh ofHTN, DM, HLD, GI bleeding, diverticulosis, anemia, dementia, Parkinson's disease and pneumonia in April 2018 orthostatic hypotension admitted 06/01/2018 for worsening SOB and leg edema due to acute on chronic diastolic CHF and proteinurea, hypoalbuminemia leading to 3rd spacing including pleural effusionsrecently againadmitted with c/o worsening sob and chest tightness, LE edema. Noted to have JASMIN with associated anasarca, low albumin and proteinurea. Lasix was changed to Torsemide with better effect. She had not been started on an JESUSITA-I/ARB as an allergy to valsartan was reported in [facility] records. The reason for this reported allergy was unable to be identified and her daughter denied her ever having an allergy. Thus last week benicar was started in an attempt to reduce proteinurea and reduce third spacing due to low albumin. over the weekend she was feeling very fatigued and BP was uncontrolled despite all of her medications. Last night c/o sob and chest pain and thus her daughter brought her to the ER. HTN-difficult to control, often above goal but also with orthostatic hypotension -better controlled since yesterday -started on ARB (Benicar) last week as there is no documentation of an actual allergy to valsartan, pts daughter adamantly denies it, and she would benefit in terms of reducing proteinurea -continue Losartan 100mg daily (benicar not available on formulary here) -continue Losartan inpatient then change to Olmesartan 40mg daily on discharge -increased Nifedipine to 60mg bid -cont Labetalol which was increased to 400 mg tid -Hydralazine was stopped last week, hold for now Chest pain-atypical, likely secondary to uncontrolled HTN -no sig changes on ekg -chest pain resolved -cardiac enzymes wnl -echo was repeated with no sig change from echo 3 months ago Echocardiogram 06/02/2018showed normal LV size, wall motion and systolic function. LVEF = 60-65%. Normal RV. Normal LA and RA in size. No significant valvular abnormalities. Minimal pericardial effusion. -no further ischemic work up is needed at this time SOB and edema: multifactorial -component of acute on chronic diastolic CHF in the setting of low oncotic pressure (severe hypoalbuminemia) leading to third spacing and anasarca including pleural effusion and LE edema -volume status had been improving as outpatient withTorsemide -increase Torsemide to 40mg daily with extra dose of 20mg now and with close monitoring of bun/creat, concern for developing intravascular depletion -needs repeat labs today or tomorrow -concern that aggressive diuresis will lead to intravascular depletion secondary to low oncotic pressure -Nutritional support -she was noted to have proteinurea with low serum albumin. -continue Losartan inpatient then change to Olmesartan 40mg daily on discharge
[2018-09-15] MEDS: TORSEMIDE 20 MG TABLET (FP) PO ONE (16:30)
[2018-09-15] MEDS: ATORVASTATIN CA 20 MG TABLET (FP) PO SCH (21:48)
[2018-09-15] MEDS: MIRTAZAPINE 15 MG TABLET (FP) PO SCH (21:48)
[2018-09-16] MEDS: CARBIDOPA/LEVODOPA 25/100 TABLET (FP) PO SCH (06:27)
[2018-09-16] MEDS: DOCUSATE SODIUM 100 MG CAPSULE (FP) PO SCH (06:27)
[2018-09-16] MEDS: LABETALOL HCL 200 MG TABLET (FP) PO SCH (06:27)
[2018-09-16] MEDS: INSULIN (LEVEMIR) 100 UNITS/ML UNITS SQ SCH (06:28)
[2018-09-16] MEDS: INSULIN SLIDING SCALE (NOVOLOG) 1 VIAL SQ SCH ×2 (06:29→12:07)
[2018-09-16] MEDS ORDERED: PT OWN MED DRAWER 7, Y5N ONE (08:18)
[2018-09-16 08:40] VITALS: BP 169/82; PULSE 56; TEMP 98.2
[2018-09-16] MEDS: LIPASE/PROTEASE/AMYLASE 36,000 UNIT CAPSULE PO SCH ×2 (08:55→12:06)
[2018-09-16] MEDS: LOSARTAN POTASSIUM 50 MG TABLET (FP) PO SCH (09:21)
[2018-09-16] MEDS: HEPARIN NA (PORCINE) 5,000 UNITS/ML 1ML VIAL SQ SCH (09:22)
[2018-09-16] MEDS: ASPIRIN 81 MG CHEWABLE TABLETS PO SCH (09:22)
[2018-09-16] MEDS: DONEPEZIL HCL 10 MG TABLET (FP) PO SCH (09:22)
[2018-09-16] MEDS: DIVALPROEX SODIUM 250 MG TABLET E.C. PO SCH (09:22)
[2018-09-16] MEDS: PANTOPRAZOLE 40 MG TABLET (FP) PO SCH (09:22)
[2018-09-16] MEDS: NIFEdipine E.R 60 MG TABLET (UD) PO SCH (09:23)
[2018-09-16] MEDS ORDERED: TORSEMIDE 20 MG TABLET (FP) PO SCH (10:00)
--- NOTE | 2018-09-16 11:14 | PN ---
Progress Note, Physician History of Present Illness: PULMONARY ALERT,OOB-CHAIR,LESS DYSPNEIC,C/O R SIDED CP REPRODUCIBLE - Current Medication List Current Medications: Active Medications Acetaminophen (Tylenol -) 650 mg PO Q4H PRN PRN Reason: PAIN 1-3 Last Admin: 09/15/18 12:02 Dose: 650 mg Albuterol Sulfate (Ventolin 0.083% Nebulizer Soln -) 1 amp NEB Q6H PRN PRN Reason: SHORTNESS OF BREATH Last Admin: 09/14/18 21:15 Dose: 1 amp Aspirin (Asa -) 81 mg PO DAILY [facility] Last Admin: 09/16/18 09:22 Dose: 81 mg Atorvastatin Calcium (Lipitor -) 20 mg PO HS [facility] Last Admin: 09/15/18 21:48 Dose: 20 mg Bupropion HCl (Wellbutrin Xl -) 150 mg PO DAILY [facility] Last Admin: 09/16/18 09:22 Dose: 150 mg Carbidopa/Levodopa (Sinemet 25/100 -) 1 each PO TID [facility] Last Admin: 09/16/18 06:27 Dose: 1 each Divalproex Sodium (Depakote -) 250 mg PO DAILY [facility] Last Admin: 09/16/18 09:22 Dose: 250 mg Docusate Sodium (Colace -) 100 mg PO TID [facility] Last Admin: 09/16/18 06:27 Dose: 100 mg Donepezil HCl (Aricept -) 10 mg PO DAILY [facility] Last Admin: 09/16/18 09:22 Dose: 10 mg Heparin Sodium (Porcine) (Heparin -) 5,000 unit SQ BID [facility] Last Admin: 09/16/18 09:22 Dose: 5,000 unit Insulin Aspart (Novolog Vial Sliding Scale -) [address] [facility]; Protocol Last Admin: 09/16/18 06:29 Dose: Not Given Insulin Detemir (Levemir Vial) 14 units SQ DAILY@0700 [facility] Last Admin: 09/16/18 06:28 Dose: 14 units Labetalol HCl (Normodyne -) 400 mg PO TID [facility] Last Admin: 09/16/18 06:27 Dose: 400 mg Losartan Potassium (Cozaar -) 100 mg PO DAILY [facility] Last Admin: 09/16/18 09:21 Dose: 100 mg Mirtazapine (Remeron -) 15 mg PO HS [facility] Last Admin: 09/15/18 21:48 Dose: 15 mg Nifedipine (Procardia Xl -) 60 mg PO BID [facility] Last Admin: 09/16/18 09:23 Dose: 60 mg Nitroglycerin (Nitrostat -) 0.4 mg SL Q5M PRN PRN Reason: FOR CHEST PAIN Last Admin: 09/13/18 22:50 Dose: 0.4 mg Ondansetron HCl (Zofran Injection) 4 mg IVPUSH Q6H PRN PRN Reason: NAUSEA AND/OR VOMITING Last Admin: 09/14/18 19:02 Dose: 4 mg Pancrelipase (Creon Dr 36,000 Units Capsule) 1 cap PO TIDCM [facility] Last Admin: 09/16/18 08:55 Dose: 1 cap Pantoprazole Sodium (Protonix -) 40 mg PO DAILY [facility] Last Admin: 09/16/18 09:22 Dose: 40 mg Torsemide (Demadex -) 40 mg PO DAILY [facility] Last Admin: 09/16/18 09:21 Dose: 40 mg Tramadol HCl (Ultram -) 50 mg PO Q6H PRN PRN Reason: PAIN LEVEL 6-10 - Objective Vital Signs: Vital Signs Temperature 98.2 F 09/16/18 08:38 Pulse Rate 56 L 09/16/18 08:38 Respiratory Rate 18 09/16/18 08:38 Blood Pressure 169/82 09/16/18 08:38 O2 Sat by Pulse Oximetry (%) 100 09/16/18 08:33 Constitutional: Yes: Well Nourished, Calm Eyes: Yes: WNL HENT: Yes: WNL Neck: Yes: WNL Cardiovascular: Yes: Regular Rate and Rhythm, S1, S2 Respiratory: Yes: Rales (BIBASILAR CRACKLES) Gastrointestinal: Yes: Normal Bowel Sounds, Soft Extremities: Yes: WNL Edema: Yes Labs: CBC, BMP 09/13/18 05:10 09/13/18 05:10 INR, PTT INR 1.09 (0.83-1.09) 09/12/18 03:24 Problem List - Problems (1) CHF exacerbation Code(s): I50.9 - HEART FAILURE, UNSPECIFIED Qualifiers: Heart failure type: unspecified Qualified Code(s): I50.9 - Heart failure, unspecified (2) Chest pain Code(s): R07.9 - CHEST PAIN, UNSPECIFIED Qualifiers: Chest pain type: unspecified Qualified Code(s): R07.9 - Chest pain, unspecified (3) Acute on chronic diastolic (congestive) heart failure Code(s): I50.33 - ACUTE ON CHRONIC DIASTOLIC (CONGESTIVE) HEART FAILURE (4) Anemia Code(s): D64.9 - ANEMIA, UNSPECIFIED Qualifiers: Anemia type: iron deficiency (5) Anemia Code(s): D64.9 - ANEMIA, UNSPECIFIED (6) Chronic edema Code(s): R60.9 - EDEMA, UNSPECIFIED (7) Dementia Code(s): F03.90 - UNSPECIFIED DEMENTIA WITHOUT BEHAVIORAL DISTURBANCE (8) Diabetes Code(s): E11.9 - TYPE 2 DIABETES MELLITUS WITHOUT COMPLICATIONS Qualifiers: Diabetes mellitus type: type 2 (9) HTN (hypertension) Code(s): I10 - ESSENTIAL (PRIMARY) HYPERTENSION (10) Parkinson disease Code(s): G20 - PARKINSON'S DISEASE (11) Pleural effusion Code(s): J90 - PLEURAL EFFUSION, NOT ELSEWHERE CLASSIFIED (12) SOB (shortness of breath) Code(s): R06.02 - SHORTNESS OF BREATH Assessment/Plan IMP DYSPNEA IMPROVING ACUTE ON CHRONIC DIASTOLIC HF POORLY CONTROLLED HTN BILATERAL PLEURAL EFFUSIONS CHEST PAIN ANEMIA H/O GI BLEED DM ANASARCA PARKINSONS DEMENTIA PLAN DIURETICS TITRATE BP MEDS O2 DAILY WT F/U CHEST X-RAY STRICT I+OS MONITOR BETTINA CAMPA Problem List - Problems (1) CHF exacerbation Code(s): I50.9 - HEART FAILURE, UNSPECIFIED Qualifiers: Heart failure type: unspecified Qualified Code(s): I50.9 - Heart failure, unspecified (2) Chest pain Code(s): R07.9 - CHEST PAIN, UNSPECIFIED Qualifiers: Chest pain type: unspecified Qualified Code(s): R07.9 - Chest pain, unspecified (3) Acute on chronic diastolic (congestive) heart failure Code(s): I50.33 - ACUTE ON CHRONIC DIASTOLIC (CONGESTIVE) HEART FAILURE (4) Anemia Code(s): D64.9 - ANEMIA, UNSPECIFIED Qualifiers: Anemia type: iron deficiency (5) Anemia Code(s): D64.9 - ANEMIA, UNSPECIFIED (6) Chronic edema Code(s): R60.9 - EDEMA, UNSPECIFIED (7) Dementia Code(s): F03.90 - UNSPECIFIED DEMENTIA WITHOUT BEHAVIORAL DISTURBANCE (8) Diabetes Code(s): E11.9 - TYPE 2 DIABETES MELLITUS WITHOUT COMPLICATIONS Qualifiers: Diabetes mellitus type: type 2 (9) HTN (hypertension) Code(s): I10 - ESSENTIAL (PRIMARY) HYPERTENSION (10) Parkinson disease Code(s): G20 - PARKINSON'S DISEASE (11) Pleural effusion Code(s): J90 - PLEURAL EFFUSION, NOT ELSEWHERE CLASSIFIED (12) SOB (shortness of breath) Code(s): R06.02 - SHORTNESS OF BREATH
--- NOTE | 2018-09-16 11:47 | DS ---
Physical Examination Vital Signs: Vital Signs Temperature 98.2 F 09/16/18 08:38 Pulse Rate 56 L 09/16/18 08:38 Respiratory Rate 18 09/16/18 08:38 Blood Pressure 169/82 09/16/18 08:38 O2 Sat by Pulse Oximetry (%) 100 09/16/18 08:33 Findings/Remarks: Patient is a 78 y/o female with past medical history of HTN, HLD, DM, CKD, Parkinson's Disease, Dementia. Patient presented with daughter to ER after elevated BP at home accompanied with chest pain. As per daughter patient has been experiencing elevated BP at home with systolic ranging from 160s-200s. Her elevated BP was accompanied with dizziness, one episode of vomiting, and mid chest pain radiating to R side of chest. She describes the pain as if she was punched in the chest. Patient also states experiencing SOB and orthopnea. Troponin neg x 1 and CXR shows increasing bibasilar atelectasis/infiltrative changes with pleural fluid, right more affected than the left. Her repeat echo was unremarkable During her stay Labetalol was increased to 400 mg po TID Torsemide increased to 40 mg po daily Upon discharge losartan will be discontinued and pt will continue Olmesartan at new dosage of 40 mg po daily She will take tramadol 50 mg Q6H PRN for musculoskeletal chest pain Constitutional: Yes: Well Nourished, No Distress, Calm Cardiovascular: Yes: Regular Rate and Rhythm Respiratory: Yes: Regular Gastrointestinal: Yes: Normal Bowel Sounds, Soft Musculoskeletal: Yes: Muscle Weakness Edema: Yes Edema: LLE: 1+, RLE: 1+ Peripheral Pulses WNL: Yes Neurological: Yes: Alert, Oriented Psychiatric: Yes: Alert, Oriented Labs: CBC, BMP 09/13/18 05:10 09/13/18 05:10 Discharge Summary Reason For Visit: ACUTE CHF,CHEST PAIN Current Active Problems CHF exacerbation (Acute) Chest pain (Acute) Hospital Course: Laboratory Last Values WBC 5.9 K/mm3 (4.0-10.0) 09/13/18 05:10 Corrected WBC (auto) Cancelled 09/12/18 03:24 RBC 3.10 M/mm3 (3.60-5.2) L 09/13/18 05:10 Hgb 8.1 GM/dL (10.7-15.3) L 09/13/18 05:10 Hct 24.4 % (32.4-45.2) L 09/13/18 05:10 MCV 78.7 fl (80-96) L 09/13/18 05:10 MCH 26.3 pg (25.7-33.7) 09/13/18 05:10 MCHC 33.4 g/dl (32.0-36.0) 09/13/18 05:10 RDW 17.4 % (11.6-15.6) H 09/13/18 05:10 Plt Count 478 K/MM3 (134-434) H 09/13/18 05:10 MPV 6.8 fl (7.5-11.1) L 09/13/18 05:10 Absolute Neuts (auto) 3.5 K/mm3 (1.5-8.0) 09/13/18 05:10 Absolute Lymphs (auto) Cancelled 09/12/18 03:24 Absolute Monos (auto) Cancelled 09/12/18 03:24 Absolute Eos (auto) Cancelled 09/12/18 03:24 Absolute Basos (auto) Cancelled 09/12/18 03:24 Add Manual Diff Cancelled 09/12/18 03:24 Neutrophils % 58.3 % (42.8-82.8) 09/13/18 05:10 Lymphocytes % 23.8 % (8-40) D 09/13/18 05:10 Monocytes % 11.9 % (3.8-10.2) H 09/13/18 05:10 Eosinophils % 5.2 % (0-4.5) H 09/13/18 05:10 Basophils % 0.8 % (0-2.0) 09/13/18 05:10 Nucleated RBC % 0 % (0-0) 09/13/18 05:10 Platelet Estimate Normal 09/13/18 05:10 Platelet Comment Cancelled 09/12/18 03:24 Normal RBC Morphology Cancelled 09/12/18 03:24 PT with INR 12.90 SEC (9.7-13.0) 09/12/18 03:24 INR 1.09 (0.83-1.09) 09/12/18 03:24 Sodium 143 mmol/L (136-145) 09/13/18 05:10 Potassium 4.0 mmol/L (3.5-5.1) 09/13/18 05:10 Chloride 105 mmol/L (98-107) 09/13/18 05:10 Carbon Dioxide 32 mmol/L (21-32) 09/13/18 05:10 Anion Gap 6 MMOL/L (8-16) L 09/13/18 05:10 BUN 23.1 mg/dL (7-18) H 09/13/18 05:10 Creatinine 1.3 mg/dL (0.55-1.3) 09/13/18 05:10 Est GFR (CKD-EPI)AfAm 46.15 09/13/18 05:10 Est GFR (CKD-EPI)NonAf 39.82 09/13/18 05:10 POC Glucometer 160 UNITS (80-120) 09/16/18 11:25 Random Glucose 117 mg/dL (74-106) H 09/13/18 05:10 Hemoglobin A1c % 7.4 % (4.2-6.3) H 09/13/18 06:15 Calcium 8.4 mg/dL (8.5-10.1) L 09/13/18 05:10 Phosphorus 3.8 mg/dL (2.5-4.9) 09/13/18 05:10 Magnesium 2.3 mg/dL (1.8-2.4) 09/13/18 05:10 Total Bilirubin 0.4 mg/dL (0.2-1) 09/13/18 05:10 AST 9 U/L (15-37) L 09/13/18 05:10 ALT < 6 U/L (13-61) L 09/13/18 05:10 Alkaline Phosphatase 95 U/L (45-117) 09/13/18 05:10 Creatine Kinase 94 U/L (26-192) 09/12/18 03:24 Troponin I 0.03 ng/ml (0.00-0.05) 09/13/18 05:10 B-Natriuretic Peptide 7791.1 pg/ml (5-450) H 09/13/18 05:10 Total Protein 6.1 g/dl (6.4-8.2) L 09/13/18 05:10 Albumin 2.7 g/dl (3.4-5.0) L 09/13/18 05:10 Vital Signs Temp 98.2 F 09/16/18 08:38 Pulse 56 L 09/16/18 08:38 Resp 18 09/16/18 08:38 BP 169/82 09/16/18 08:38 Pulse Ox 100 09/16/18 08:33 Intake & Output 09/15/18 09/15/18 09/16/18 11:59 23:59 11:59 Intake Total 300 270 10 Balance 300 270 10 Weight 65.317 kg 65.544 kg Intake: IV 20 10 s/l 20 10 Oral 300 250 Other: Voiding Method Diaper Diaper Diaper # Unmeasured Voids Void 2 Weight Measurement Method Standing Scale Standing Scale Condition: Stable - Instructions Referrals: Tyler Kincaid MD [Staff Physician] - Bernabe Brown NP [Nurse Practitioner] - Disposition: VNS/HOME HEALTH CARE - Home Medications Comprehensive Discharge Medication List: Ambulatory Orders Aspirin [ASA -] 81 mg PO DAILY 09/09/15 Donepezil HCl 10 mg PO DAILY 02/01/18 Pantoprazole Sodium [Protonix -] 40 mg PO DAILY #30 tablet.ec 02/09/18 Acetaminophen [Tylenol] 650 mg PO Q4H PRN 06/01/18 Cranberry Fruit Extract [Cranberry Extract] 1 gm PO DAILY 06/01/18 Pramipexole Di-HCl [Mirapex] 1 mg PO DAILY 06/01/18 Simvastatin 20 mg PO DAILY 06/01/18 hydrALAZINE HCL [Apresoline -] 50 mg PO TID 06/01/18 Insulin Sliding Scale [Novolog Vial Sliding Scale -] 1 vial SQ TIDAC units Albuterol 0.083% Nebulizer Court [Ventolin 0.083% Nebulizer Soln -] 1 amp IN QID PRN 07/28/18 Aspirin [ASA -] 81 mg PO DAILY tab.chew 08/01/18 Atorvastatin Ca [Lipitor] 20 mg PO HS tablet 08/01/18 Bupropion HCl [Wellbutrin Xl -] 150 mg PO DAILY tab.sr.24h 08/01/18 Donepezil HCl [Aricept -] 10 mg PO DAILY tablet 08/01/18 Ferrous Sulfate [Feosol] 325 mg PO DAILY ud 08/01/18 Insulin (Levemir) [Levemir Vial] 14 units SQ DAILY@0800 units 08/01/18 Lipase/Protease/Amylase [Elaine Sweeney 36,000 Units Capsule] 1 cap PO TIDCM capsule. 08/01/18 Pramipexole Dihydrochloride [Mirapex -] 1 mg PO HS tablet 08/01/18 Spironolactone [Aldactone -] 25 mg PO DAILY #30 tablet MDD 1 08/01/18 Amlodipine Besylate [Norvasc -] 5 mg PO BID #60 tablet 08/02/18 Labetalol HCl [Normodyne -] 200 mg PO BID #60 tablet 08/02/18 Metoclopramide HCl [Reglan -] 10 mg PO TIDAC tablet 08/02/18 Torsemide [Demadex -] 20 mg PO DAILY #30 tablet 08/02/18 Divalproex [Depakote -] 250 mg PO DAILY 09/12/18 Mirtazapine 15 mg PO DAILY 09/12/18 Nifedipine 30 mg PO DAILY 09/12/18 Docusate Sodium [Colace -] 300 mg PO HS #90 capsule 09/16/18 Labetalol HCl [Normodyne -] 400 mg PO TID #180 tablet 09/16/18 Nifedipine ER [Procardia XL -] 60 mg PO BID #60 tab.er.24 09/16/18 Olmesartan Medoxomil 40 mg PO DAILY #30 tablet 09/16/18 Torsemide [Demadex -] 40 mg PO DAILY #60 tablet 09/16/18 traMADol HCL [Ultram -] 50 mg PO Q6H PRN #120 tablet MDD 4 09/16/18
[2018-09-16 13:47] LABS: ALBUMIN 2.8 g/dl (3.4-5.0); BILIRUBIN,TOTAL 0.6 mg/dL (0.2-1); CALCIUM 8.8 mg/dL (8.5-10.1); CREATININE 1.5 mg/dL (0.55-1.3); POTASSIUM 4.4 mmol/L (3.5-5.1); TOT PROT 6.4 g/dl (6.4-8.2)
--- NOTE | 2018-11-15 09:38 | EKG ---
Test Reason : Blood Pressure : / mmHG Vent. Rate : 052 BPM Atrial Rate : 052 BPM P-R Int : 188 ms QRS Dur : 106 ms QT Int : 472 ms P-R-T Axes : 013 -37 013 degrees QTc Int : 438 ms SINUS BRADYCARDIA LEFT AXIS DEVIATION ABNORMAL ECG WHEN COMPARED WITH ECG OF 12-SEP-2018 05:14, CRITERIA FOR SEPTAL INFARCT ARE NO LONGER PRESENT Confirmed by Mario Pena MD ([id number]) on 11/15/2018 9:38:09 AM Referred By: Confirmed By:Mario Pena MD
== END 2018-09-16 14:21 | disposition home health service (06) | DRG 291 ==
LOC: JER 02:30 → JERBED 09:51 → J4W 23:38
PROVIDERS: ADMIT Family Medicine; ATTEND Family Medicine
DX: I13.0 Hypertensive heart and chronic kidney disease with heart failure and stage 1 through stage 4 chronic kidney disease, or unspecified chronic kidney disease (principal); I50.33 Acute on chronic diastolic (congestive) heart failure; J98.11 Atelectasis; E78.5 Hyperlipidemia, unspecified; G20 Parkinson's disease; F02.80 Dementia in other diseases classified elsewhere, unspecified severity, without behavioral disturbance, psychotic disturbance, mood disturbance, and anxiety; I45.10 Unspecified right bundle-branch block; D64.9 Anemia, unspecified; R00.1 Bradycardia, unspecified; K57.90 Diverticulosis of intestine, part unspecified, without perforation or abscess without bleeding; E11.40 Type 2 diabetes mellitus with diabetic neuropathy, unspecified; F41.9 Anxiety disorder, unspecified; R07.89 Other chest pain; K59.00 Constipation, unspecified; R06.02 Shortness of breath; E88.09 Other disorders of plasma-protein metabolism, not elsewhere classified; E11.22 Type 2 diabetes mellitus with diabetic chronic kidney disease; N18.9 Chronic kidney disease, unspecified; R60.9 Edema, unspecified
CPT/HCPCS: 36415; 71046-TC-FY; 76700-TC; 80053; 82550; 82962; 83036; 83735; 83880; 84100; 84436; 84484; 85025; 85610; 93005; 93010; 93306-TC; 94640; 94761; 97116-GP; 97162-GP; 99284-25; J1644

== ENCOUNTER 2018-09-23 11:19 | Inpatient (IN) | payer OTHER ==
[2018-09-23] MEDS ORDERED: ACETAMINOPHEN 500 MG TABLET (FP) PO ONE (12:45)
[2018-09-23] MEDS ORDERED: FUROSEMIDE 40 MG/4 ML INJECTABLE VIAL IVPUSH ONE (12:45)
[2018-09-23] MEDS ORDERED: FUROSEMIDE 40 MG/4 ML INJECTABLE VIAL ONE (12:50)
--- NOTE | 2018-09-23 13:50 | PDOC ---
History of Present Illness - General Chief Complaint: Congestive Heart Failure Stated Complaint: SOB Time Seen by Provider: 09/23/18 12:06 - History of Present Illness Initial Comments: 09/23/18 14:47 78yo F hx of CHF, HTN, DM, and diverticulosis c/o worsening SOB since discharge 1 week ago. Pt was admitted here for CHF and HTN for a week, discharged 1 week ago on home O2 for the first time. Pt's daughter believes she was not ready to go home and was still having trouble breathing. SOB is chronic but a lot worse over the past week, worse with exertion and lying down. She feels like "choking " sometimes due to the SOB. Pt's daughter called pt's doctor daily an they increased her torsemide to 40mg 2x/day and added Hydralazine 50mg 2 days ago. These medications have helped with her BP which has been running in the 200s systolic daily, but lowered to 150s, but they did not help with the SOB. Pt has been using albuterol nebs hourly for the past week plus inhalers which improve the SOB for a little but then it returns. 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 Tejeda told her to come in for admission if it didn't improve with the medication changes. Pt also has chronic R lung pain which she used to take Tramadol for but stopped it on Wednesday. She reports worsening bilateral leg swelling the past week as well. Denies cough, F/C, hx PE/DVT, recent travel or immobilization, hx intubations. Pt did have PNA in February but this doesn't feel like that. Endorses chronic intermittent constipation and incontinence (in diapers). Denies CP, headache, dizziness, abdominal pain, N/V/D, dysuria, diarrhea, blood in stool or urine. Per records, echo on 08/07 revealed normal EF 55-60%. Past History - Past Medical History Allergies/Adverse Reactions: Allergies Allergy/AdvReac Type Severity Reaction Status Date / Time valsartan [From Diovan] Allergy Mild Verified 09/23/18 11:27 Home Medications: Ambulatory Orders Aspirin [Adult Aspirin Regimen] 81 mg PO DAILY 09/23/18 Atorvastatin Ca [Lipitor] 20 mg PO HS 09/23/18 Bupropion HCl [Wellbutrin Xl -] 150 mg PO DAILY 09/23/18 Carbidopa/Levodopa 25/100 [Sinemet 25/100 -] 1 each PO TID 09/23/18 Divalproex *ER* [Depakote *ER* -] 250 mg PO BID 09/23/18 Docusate Sodium [Stool Softener] 100 mg PO HS 09/23/18 Donepezil HCl [Aricept -] 10 mg PO DAILY 09/23/18 Hydralazine HCl 50 mg PO DAILY 09/23/18 Labetalol HCl 400 mg PO TID 09/23/18 Lipase/Protease/Amylase [Creon Dr 36,000 Units Capsule] 1 each PO TID 09/23/18 Mirtazapine 15 mg PO HS 09/23/18 Nifedipine [Procardia Xl] 60 mg PO BID 09/23/18 Olmesartan Medoxomil [Benicar (Nf)] 40 mg PO DAILY 09/23/18 Pantoprazole Sodium [Protonix] 40 mg PO DAILY 09/23/18 Potassium Chloride [K-Dur -] 20 meq PO DAILY 09/23/18 Torsemide [Demadex] 40 mg PO BID 09/23/18 traMADol HCL [Ultram -] 50 mg PO TID PRN 09/23/18 Anemia: No Asthma: No Cancer: No Cardiac Disorders: No CVA: No COPD: No CHF: Yes (oxygen dependent) DVT: No Dementia: Yes Diabetes: Yes GI Disorders: Yes (DIVERTICULOSIS, IBM) Disorders: Yes (UTERINE POLYPS,URINARY INCONTINENCE) HTN: Yes Hypercholesterolemia: Yes Liver Disease: No Seizures: No Thyroid Disease: No - Surgical History Abdominal Surgery: (abdominoplasty 15 yrs ago (tissue became necrotic)) Appendectomy: Yes Cardiac Surgery: No Cholecystectomy: Yes Lung Surgery: No Neurologic Surgery: No Orthopedic Surgery: No - Immunization History Immunization Up to Date: Yes - Suicide/Smoking/Psychosocial Hx Smoking Status: No Smoking History: Never smoked Have you smoked in the past 12 months: No Number of Cigarettes Smoked Daily: 0 Hx Alcohol Use: No Drug/Substance Use Hx: No Substance Use Type: None Hx Substance Use Treatment: No Review of Systems - Review of Systems Comments:: 09/23/18 14:46 Constitutional: Negative for chills and fever. HENT: Negative for sore throat. Eyes: Negative for visual disturbance. Respiratory: Positive for SOB and R lung pain. Negative for cough and wheezing. Cardiovascular: Positive for b/l leg swelling. Negative for chest pain, palpitations. Gastrointestinal: Negative for abdominal pain, blood in stool, constipation, diarrhea, nausea and vomiting. Genitourinary: Negative for dysuria, flank pain and hematuria. Musculoskeletal: Negative for back pain and neck pain. Skin: Negative for rash. Neurological: Negative for light-headedness, dizziness, syncope, weakness, numbness and headaches. Psychiatric/Behavioral: Negative for behavioral problems and confusion. *Physical Exam - Vital Signs Last Vital Signs Temp Pulse Resp BP Pulse Ox 97.8 F 52 L 22 H 147/51 L 99 09/23/18 11:28 09/23/18 11:28 09/23/18 11:28 09/23/18 11:28 09/23/18 11:28 - Physical Exam Comments: 09/23/18 14:43 GENERAL: Well developed, well nourished. Awake and alert. No acute distress. HEENT: Normocephalic, atraumatic. PERRLA, EOMI. No conjunctival pallor. Sclera are non- icteric. Moist mucous membranes. Oropharynx is clear. NECK: Supple. CARDIOVASCULAR: Regular rate and rhythm. No murmurs, rubs, or gallops. Distal pulses are 2+ and symmetric. PULMONARY: Speech limited to 5 words at a time. Mild rales b/l. ABDOMINAL: Soft. Non-tender. Non-distended. No rebound or guarding. No organomegaly. Normoactive bowel sounds. MUSCULOSKELETAL Normal range of motion at all joints. No bony deformities or tenderness. No CVA tenderness. EXTREMITIES: 2+ PE b/l to knees. No cyanosis. No clubbing. No calf tenderness. SKIN: Warm and dry. Normal capillary refill. No rashes. No jaundice. NEUROLOGICAL: Alert, awake, appropriate. Cranial nerves 2-12 grossly intact. Strength and sensation grossly intact in all extremities. PSYCHIATRIC: Cooperative. Good eye contact. Appropriate mood and affect. Heart Score/ECG Review - ECG Impressions Comment:: 09/23/18 15:12 Sinus bradycardia, 50bpm, no ASHLEY/TWI ED Treatment Course - LABORATORY CBC & Chemistry Diagram: 09/23/18 13:58 09/23/18 13:58 - RADIOLOGY Radiology Studies Ordered: Category Date Time Status CHEST PA & LAT [RAD] Stat Radiology 09/23/18 12:49 Ordered Medical Decision Making - Medical Decision Making 09/23/18 14:54 78yo F hx of CHF, HTN, and DM presenting with worsening SOB and pitting edema since discharge 1 week ago. BP controlled, but SOB worsening and mild rales present b/l. Most likely CHF/volume overload - give Lasix, Tylenol for lung pain , and and get basic labs including BNP. ACS less likely due to low heart score, but r/o with cardiac profile. PNA unlikely due to lack of cough, fever, or consistent exam findings, but r/o with CXR. PE unlikely and Wells score low - no further assessment indicated. Other etiologies of SOB including CPD, PTX, anemia, etc unlikely, but evaluate with labs and CXR. UTI unlikely due to lack of sx, but due to diaper use and incontinence, obtain UA/UC. Per pt's daughter, pt's doctor recommended admission. Due to recommendation and pt's worsening sx, will most likely admit. -CBC, CMP, BNP, Cardiac profile, UA/UC -CXR -EKG -Tylenol for pain -Lasix 80mg for rales -Dispo: most likely admit pending workup 09/23/18 15:12 09/23/18 15:23 Labs of note: H/H 7.8/23.7 but chronically low. Last H/H 09/13/18: 8.1/24.4 WBC 6.6 Trop <0.02 BNP 6936 (last 7791) BUN 35.6, Cr 1.9 UA: 1+ leukocyte esterase, 12 WBC, Bacteria 14.7 but unsymptomatic. No tx indicated at this time. CXR: per my read, worsening pulmonary edema. Page admission team 09/23/18 15:39 Spoke with [employer] of Dr Espana. Admit to Dr Espana -order placed. *DC/Admit/Observation/Transfer Diagnosis at time of Disposition: CHF exacerbation, CHF (congestive heart failure) - Discharge Dispostion Condition at time of disposition: Fair Decision to Admit order: Yes - Referrals - Patient Instructions - Post Discharge Activity
[2018-09-23] MEDS ORDERED: ACETAMINOPHEN 325 MG TABLET (FP) ONE (14:06)
[2018-09-23 14:20] LABS: BASO % 0.6 % (0-2.0); EOS % 4.4 % (0-4.5); HEMATOCRIT 23.7 % (32.4-45.2); HEMOGLOBIN 7.8 GM/dL (10.7-15.3); LYMPH % 16.9 % (8-40); MCH 26.4 pg (25.7-33.7); MEAN CELL VOLUME 79.9 fl (80-96); MEAN PLT VOLUME 7.4 fl (7.5-11.1); NEUT % 66.1 % (42.8-82.8); PLATELET COUNT 409 K/MM3 (134-434); RBC 2.96 M/mm3 (3.60-5.2); RDW 18.6 % (11.6-15.6); WHITE BLOOD COUNT 6.6 K/mm3 (4.0-10.0)
--- NOTE | 2018-09-23 14:32 | PDOC ---
Documentation entered by Ranjit Dolan SCRIBE, acting as scribe for Carmine Hairston MD. Carmine Hairston MD: This documentation has been prepared by the Kelsi hayden Elijah, SCRIBE, under my direction and personally reviewed by me in its entirety. I confirm that the documentation accurately reflects all work, treatment, procedures, and medical decision making performed by me. Attending Attestation - Resident Resident Name: Sera Muhammad - ED Attending Attestation I have performed the following: I have examined & evaluated the patient, The case was reviewed & discussed with the resident, I agree w/resident's findings & plan, Exceptions are as noted - HPI HPI: 09/23/18 13:12 Patient is a 78 year old female with a significant past medical history of HTN, HLD, CHF, CKD, parkinsons and Dementia who presents to the ED with progressively worsening SOB lasting for x3 weeks (when she was last discharged from the ED). Patient associates R sided chest pain, bilateral leg swelling and orthopnea. Denies F/C. Denies abdominal pain. Denies fever, chills, nausea, vomiting, and diarrhea. Allergies: NKA PCP: Dr. Espana - Physicial Exam PE: 09/23/18 13:13 GENERAL: Awake, alert, and fully oriented, in no acute distress. HEAD: No signs of trauma EYES: PERRLA, EOMI, sclera anicteric, conjunctiva clear ENT: Auricles normal inspection, hearing grossly normal, nares patent, oropharynx clear without exudates. Moist mucosa NECK: Nontender, no stepoffs, Normal ROM, supple, no lymphadenopathy, JVD, or masses LUNGS: + bibasilar rales HEART: Regular rate and rhythm, normal S1 and S2, no murmurs, rubs or gallops ABDOMEN: Soft, nontender, normoactive bowel sounds. No guarding, no rebound. No masses EXTREMITIES: +2 PE BLE, No clubbing or cyanosis. No cords, erythema, or tenderness NEUROLOGICAL: Cranial nerves II through XII intact. 5/5 strength and sensation in all extremities, Normal speech, normal gait, normal cerebellar function SKIN: Warm, Dry, normal turgor, no rashes or lesions noted. - Medical Decision Making 09/23/18 14:34 78 F with SOB, orthopnea, and BLE swelling. Concerning for volume overload. Pt with rales on lung exam with edema of both LEs. - Labs, trop, BNP - CXR - IV lasix - Admit tele
[2018-09-23 14:48] LABS: ALK PHOS 121 U/L (45-117); ANION GAP 6 MMOL/L (8-16); BILIRUBIN,TOTAL 0.4 mg/dL (0.2-1); BLOOD UREA NITROGEN 35.6 mg/dL (7-18); CALCIUM 8.8 mg/dL (8.5-10.1); CHLORIDE 106 mmol/L (98-107); CO2 31 mmol/L (21-32); CREATININE 1.9 mg/dL (0.55-1.3); GLUCOSE,RANDOM 98 mg/dL (74-106); POTASSIUM 4.4 mmol/L (3.5-5.1); SGOT/AST 13 U/L (15-37); SGPT/ALT < 6 U/L (13-61); SODIUM 142 mmol/L (136-145); TOT PROT 6.6 g/dl (6.4-8.2)
[2018-09-23 15:12] LABS: EPI CELLS 2.8 /HPF (0-5/HPF); HYALINE CASTS 18 /lpf (0-8); URINE APPEARANCE CLEAR; URINE BACTERIA 14.7 /hpf (NEGATIVE); URINE BILIRUBIN NEGATIVE (NEGATIVE); URINE COLOR YELLOW; URINE GLUCOSE (UA) NEGATIVE (NEGATIVE); URINE KETONE NEGATIVE (NEGATIVE); URINE LEUK ESTERASE 1+ (NEGATIVE); URINE NITRITE NEGATIVE (NEGATIVE); URINE PROTEIN 2+ (NEGATIVE); URINE RBC 7 /hpf (0-4); URINE UROBILINOGEN 0.2 mg/dL (0.2-1.0); URINE WBC 12 /hpf (0-5)
[2018-09-23] MEDS ORDERED: traMADol HCL 50 MG TABLET PO PRN (15:50)
[2018-09-23] MEDS ORDERED: ACETAMINOPHEN 325 MG TABLET (FP) PO PRN (15:59)
[2018-09-23] MEDS: LABETALOL HCL 200 MG TABLET (FP) PO SCH ×2 (16:18→22:16)
[2018-09-23] MEDS ORDERED: hydrALAZINE HCL 25 MG TABLET (FP) ONE (16:23)
[2018-09-23] MEDS ORDERED: CARBIDOPA/LEVODOPA 25/100 TABLET (FP) ONE (16:24)
[2018-09-23] MEDS ORDERED: ALBUTEROL SO4 2.5/IPRATROPIUM 0.5 INH SOL 3 ML VIAL.NEB. NEB ONE (16:24)
[2018-09-23] MEDS: hydrALAZINE HCL 50 MG TABLET (FP) PO SCH ×2 (16:29→21:18)
[2018-09-23] MEDS: CARBIDOPA/LEVODOPA 25/100 TABLET (FP) PO SCH ×2 (16:29→23:39)
[2018-09-23] MEDS: ALBUTEROL SO4 2.5/IPRATROPIUM 0.5 INH SOL 3 ML VIAL.NEB. NEB SCH ×3 (16:29→21:20)
--- NOTE | 2018-09-23 16:29 | HP ---
Admitting History and Physical - Primary Care Physician PCP: Ro Espana - Admission Chief Complaint: SOB. CHF exacerbation History of Present Illness: 78yo F hx of CHF, HTN, DM, and diverticulosis c/o worsening SOB since discharge 1 week ago. Pt was admitted here for CHF and HTN for a week, discharged 1 week ago on home O2 for the first time. Pt's daughter believes she was not ready to go home and was still having trouble breathing. SOB is chronic but a lot worse over the past week, worse with exertion and lying down. She feels like "choking " sometimes due to the SOB. Pt's daughter called pt's doctor daily an they increased her torsemide to 40mg 2x/day and added Hydralazine 50mg 2 days ago. These medications have helped with her BP which has been running in the 200s systolic daily, but lowered to 150s, but they did not help with the SOB. Pt has been using albuterol nebs hourly for the past week plus inhalers which improve the SOB for a little but then it returns. 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 Tejeda told her to come in for admission if it didn't improve with the medication changes. Pt also has chronic R lung pain which she used to take Tramadol for but stopped it on Wednesday. She reports worsening bilateral leg swelling the past week as well. Denies cough, F/C, hx PE/DVT, recent travel or immobilization, hx intubations. Pt did have PNA in February but this doesn't feel like that. Endorses chronic intermittent constipation and incontinence (in diapers). Denies CP, headache, dizziness, abdominal pain, N/V/D, dysuria, diarrhea, blood in stool or urine. Per records, echo on 08/07 revealed normal EF 55-60%. 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: Dementia, Peripheral Neuropathy, Parkinson's Cardiovascular: Yes: HTN, Hyperlipdemia Gastrointestinal: Yes: Diverticulosis Psych: Yes: Anxiety Musculoskeletal: Yes: Osteoarthritis Endocrine: Yes: Diabetes Mellitus - Past Surgical History Past Surgical History: Yes: Appendectomy, Cholecystectomy, - Smoking History Smoking history: Never smoked Have you smoked in the past 12 months: No Aproximately how many cigarettes per day: 0 - Alcohol/Substance Use Hx Alcohol Use: No - Social History 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 History of Recent Travel: No Home Medications - Allergies Allergies/Adverse Reactions: Allergies Allergy/AdvReac Type Severity Reaction Status Date / Time valsartan [From Diovan] Allergy Mild Verified 09/23/18 11:27 - Home Medications Home Medications: Ambulatory Orders Aspirin [Adult Aspirin Regimen] 81 mg PO DAILY 09/23/18 Atorvastatin Ca [Lipitor] 20 mg PO HS 09/23/18 Bupropion HCl [Wellbutrin Xl -] 150 mg PO DAILY 09/23/18 Carbidopa/Levodopa 25/100 [Sinemet 25/100 -] 1 each PO TID 09/23/18 Divalproex *ER* [Depakote *ER* -] 250 mg PO BID 09/23/18 Docusate Sodium [Stool Softener] 100 mg PO HS 09/23/18 Donepezil HCl [Aricept -] 10 mg PO DAILY 09/23/18 Hydralazine HCl 50 mg PO TID 09/23/18 Insulin Glargine,Hum.rec.anlog [Lantus] 14 unit SQ ACBK 09/23/18 Insulin NPH Human Isophane [Humulin N] 1 unit SQ BIDAC 09/23/18 Labetalol HCl 400 mg PO TID 09/23/18 Lipase/Protease/Amylase [Elaine Dr 36,000 Units Capsule] 1 each PO TID 09/23/18 Mirtazapine 30 mg PO HS 09/23/18 Nifedipine [Procardia Xl] 60 mg PO BID 09/23/18 Olmesartan Medoxomil [Benicar (Nf)] 40 mg PO DAILY 09/23/18 Ondansetron HCl [Zofran] 4 mg PO PRN PRN 09/23/18 Pantoprazole Sodium [Protonix] 40 mg PO DAILY 09/23/18 Potassium Chloride [K-Dur -] 20 meq PO DAILY 09/23/18 Torsemide [Demadex] 40 mg PO BID 09/23/18 traMADol HCL [Ultram -] 50 mg PO TID PRN 09/23/18 Family Disease History - Family Disease History Family History: Unremarkable Review of Systems - Review of Systems Constitutional: reports: Loss of Appetite, Malaise, Weakness Eyes: reports: No Symptoms HENT: reports: No Symptoms Neck: reports: No Symptoms Cardiovascular: reports: Chest Pain, Edema, Shortness of Breath Respiratory: reports: SOB, SOB on Exertion Gastrointestinal: reports: No Symptoms Genitourinary: reports: No Symptoms Breasts: reports: No Symptoms Reported Musculoskeletal: reports: No Symptoms Integumentary: reports: No Symptoms Neurological: reports: No Symptoms Endocrine: reports: No Symptoms Hematology/Lymphatic: reports: No Symptoms Psychiatric: reports: No Symptoms Physical Examination Vital Signs: Vital Signs Temperature 98.1 F 09/23/18 16:02 Pulse Rate 48 L 09/23/18 16:02 Respiratory Rate 22 H 09/23/18 16:02 Blood Pressure 171/51 H 09/23/18 16:02 O2 Sat by Pulse Oximetry (%) 100 09/23/18 16:02 Labs: CBC, BMP 09/23/18 13:58 09/23/18 13:58 Imaging - Results Chest X-ray: Report Reviewed Problem List - Problems (1) JASPER (acute kidney injury) Assessment/Plan: -nephrology consult -monitor trend Code(s): N17.9 - ACUTE KIDNEY FAILURE, UNSPECIFIED (2) Acute on chronic diastolic (congestive) heart failure Assessment/Plan: -Cardiology consult -Tele monitoring -mildly bradycardiac on tele -Diruesis -low sodium diabetic diet -daily weights Code(s): I50.33 - ACUTE ON CHRONIC DIASTOLIC (CONGESTIVE) HEART FAILURE (3) Anemia Assessment/Plan: -chronic -hematology consult -likely dilutional -[place] transfusion for Hg<7.0 to avoid fluid overload -check B12, Iron, Thyroid, Folate and stool OB Code(s): D64.9 - ANEMIA, UNSPECIFIED (4) Diabetes Assessment/Plan: -BGM AC HS -Diabetic low sodium diet -Decrease levemir to 10 U QAM due to hypoglycemia -ISS -D50PRN for symptomatic hypoglycemia below 70 mg/dl Code(s): E11.9 - TYPE 2 DIABETES MELLITUS WITHOUT COMPLICATIONS (5) HTN (hypertension) Assessment/Plan: -Cardiology consult -Tele monitoring -mildly bradycardiac on tele -Diruesis -low sodium diabetic diet Code(s): I10 - ESSENTIAL (PRIMARY) HYPERTENSION (6) SOB (shortness of breath) Assessment/Plan: -Pulmonary consult -2/2 to CHF -Bronchodilators for immediate relief -Nasal O2 PRN, keep Spo2 >90% -diuresis Code(s): R06.02 - SHORTNESS OF BREATH Assessment/Plan see problem list
[2018-09-23] MEDS ORDERED: DEXTROSE 50%-WATER - 25 GM/50 ML VIAL IVPUSH ONE (18:30)
--- NOTE | 2018-09-23 21:03 | CONSULT ---
Consult - text type - Consultation Consultation Note: 78yo F hx of CHF, HTN, DM, and diverticulosis c/o worsening SOB since discharge 1 week ago. Pt was admitted here for CHF and HTN for a week, discharged 1 week ago on home O2 for the first time. Pt's daughter believes she was not ready to go home and was still having trouble breathing. SOB is chronic but a lot worse over the past week, worse with exertion and lying down. Per records, echo on revealed normal EF 55-60%. Allergies/Adverse Reactions: Allergies Allergy/AdvReac Type Severity Reaction Status Date / Time valsartan [From [employer]] Allergy Mild Verified 09/23/18 11:27 Home Medications: Ambulatory Orders Aspirin [Adult Aspirin Regimen] 81 mg PO DAILY 09/23/18 Atorvastatin Ca [Lipitor] 20 mg PO HS 09/23/18 Bupropion HCl [Wellbutrin Xl -] 150 mg PO DAILY 09/23/18 Carbidopa/Levodopa 25/100 [Sinemet 25/100 -] 1 each PO TID 09/23/18 Divalproex *ER* [Depakote *ER* -] 250 mg PO BID 09/23/18 Docusate Sodium [Stool Softener] 100 mg PO HS 09/23/18 Donepezil HCl [Aricept -] 10 mg PO DAILY 09/23/18 Hydralazine HCl 50 mg PO DAILY 09/23/18 Labetalol HCl 400 mg PO TID 09/23/18 Lipase/Protease/Amylase [Creon Dr 36,000 Units Capsule] 1 each PO TID 09/23/18 Mirtazapine 15 mg PO HS 09/23/18 Nifedipine [Procardia Xl] 60 mg PO BID 09/23/18 Olmesartan Medoxomil [Benicar (Nf)] 40 mg PO DAILY 09/23/18 Pantoprazole Sodium [Protonix] 40 mg PO DAILY 09/23/18 Potassium Chloride [K-Dur -] 20 meq PO DAILY 09/23/18 Torsemide [Demadex] 40 mg PO BID 09/23/18 traMADol HCL [Ultram -] 50 mg PO TID PRN 09/23/18 PMH CHF: Yes (oxygen dependent) Dementia: Yes Diabetes: Yes GI Disorders: Yes (DIVERTICULOSIS, [employer]) Disorders: Yes (UTERINE POLYPS,URINARY INCONTINENCE) HTN: Yes Hypercholesterolemia: Yes - Surgical History Abdominal Surgery: (abdominoplasty 15 yrs ago (tissue became necrotic)) Appendectomy: Yes Cholecystectomy: Yes - Immunization History Immunization Up to Date: Yes - Suicide/Smoking/Psychosocial Hx never smoked - Vital Signs Last Vital Signs Temp Pulse Resp BP Pulse Ox 97.8 F 52 L 22 H 147/51 L 99 09/23/18 11:28 09/23/18 11:28 09/23/18 11:28 09/23/18 11:28 09/23/18 11:28 Cor: RSR, No murmurs, No gallops Lungs: Clear to P&A Abd: Soft, Normal bowel sounds, No organomegaly Ext:No significant edema Labs/Meds reviewed A/P 78yo F hx of CHF, HTN, and DM presenting with worsening SOB and pitting edema since discharge 1 week ago. BP controlled, but SOB worsening and mild rales present b/l. Most likely CHF/volume overload CHF Microcytic anemia anemia of chronic disease +/- gi loses transfuse for symptomatic anemia or Hgb < 7 check ironstudies/B12/folate/protein studies Will dose iv iron based on iron studies
[2018-09-23] MEDS ORDERED: MIRTAZAPINE 15 MG TABLET (FP) ONE (21:07)
[2018-09-23] MEDS: DOCUSATE SODIUM 100 MG CAPSULE (FP) PO SCH (21:19)
[2018-09-23] MEDS: NIFEdipine E.R. 30 MG TABLET (FP) PO SCH (21:19)
[2018-09-23] MEDS: MIRTAZAPINE 30 MG TABLET (FP) PO SCH (21:20)
[2018-09-23] MEDS: ATORVASTATIN CA 20 MG TABLET (FP) PO SCH (21:23)
[2018-09-23] MEDS: DIVALPROEX SODIUM 125 MG TABLET E.C. PO SCH (23:38)
[2018-09-24 05:43] LABS: BASO % 0.9 % (0-2.0); EOS % 4.9 % (0-4.5); HEMATOCRIT 24.2 % (32.4-45.2); HEMOGLOBIN 7.8 GM/dL (10.7-15.3); LYMPH % 14.2 % (8-40); MCH 26.1 pg (25.7-33.7); MCHC 32.4 g/dl (32.0-36.0); MEAN CELL VOLUME 80.6 fl (80-96); MEAN PLT VOLUME 7.3 fl (7.5-11.1); MONO % 10.7 % (3.8-10.2); NEUT % 69.3 % (42.8-82.8); PLATELET COUNT 444 K/MM3 (134-434); RDW 18.5 % (11.6-15.6); WHITE BLOOD COUNT 6.1 K/mm3 (4.0-10.0)
[2018-09-24] MEDS ORDERED: TORSEMIDE 20 MG TABLET (FP) PO SCH (06:00)
[2018-09-24] MEDS: FUROSEMIDE 40 MG/4 ML INJECTABLE VIAL IVPUSH SCH ×2 (06:07→13:04)
[2018-09-24] MEDS: INSULIN SLIDING SCALE (NOVOLOG) 1 VIAL SQ SCH ×3 (06:07→16:23)
[2018-09-24] MEDS: hydrALAZINE HCL 50 MG TABLET (FP) PO SCH ×3 (06:08→21:17)
[2018-09-24] MEDS: CARBIDOPA/LEVODOPA 25/100 TABLET (FP) PO SCH ×3 (06:08→21:23)
[2018-09-24] MEDS: LABETALOL HCL 200 MG TABLET (FP) PO SCH ×3 (06:08→21:18)
[2018-09-24 06:44] LABS: ALBUMIN 2.8 g/dl (3.4-5.0); BILIRUBIN,TOTAL 0.4 mg/dL (0.2-1); BLOOD UREA NITROGEN 32.8 mg/dL (7-18); CALCIUM 8.7 mg/dL (8.5-10.1); CREATININE 1.7 mg/dL (0.55-1.3); POTASSIUM 4.5 mmol/L (3.5-5.1); TOT PROT 6.1 g/dl (6.4-8.2)
[2018-09-24] MEDS ORDERED: INSULIN (LEVEMIR) 100 UNITS/ML UNITS SQ SCH (07:00)
[2018-09-24] MEDS ORDERED: PT OWN MED DRAWER 7, Y5N ONE ×3 (08:27→13:02)
--- NOTE | 2018-09-24 08:48 | CON.NEP ---
Consult Consult Specialty:: nephrology Reason for Consultation:: renal insuff - History of Present Illness Chief Complaint: lung pain History of Present Illness: This is a 78 year old lady who mainly complains of lung pain. She only focuses on her lung pain though she has history of diabetes, htn, chf and was admitted with progressive dyspnea. She appears to have CKD but she denies. Denies difficulty urinating. She is a poor historian - Past Medical History [place]: Yes: Dementia, Peripheral Neuropathy, Parkinson's Cardio/Vascular: Yes: HTN, Hyperlipdemia Gastrointestinal: Yes: Diverticulosis Psych: Yes: Anxiety Musculoskeletal: Yes: Osteoarthritis Endocrine: Yes: Diabetes Mellitus - Past Surgical History Past Surgical History: Yes: Appendectomy, Cholecystectomy, - Alcohol/Substance Use Hx Alcohol Use: No - Smoking History Smoking history: Never smoked Have you smoked in the past 12 months: No Aproximately how many cigarettes per day: 0 - Social History Usual Living Arrangement: With Significant Other 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 History of Recent Travel: No Home Medications - Allergies Allergies/Adverse Reactions: Allergies Allergy/AdvReac Type Severity Reaction Status Date / Time valsartan [From [employer]] Allergy Mild Verified 09/23/18 11:27 - Home Medications Home Medications: Ambulatory Orders Aspirin [Adult Aspirin Regimen] 81 mg PO DAILY 09/23/18 Atorvastatin Ca [Lipitor] 20 mg PO HS 09/23/18 Bupropion HCl [Wellbutrin Xl -] 150 mg PO DAILY 09/23/18 Carbidopa/Levodopa 25/100 [Sinemet 25/100 -] 1 each PO TID 09/23/18 Divalproex *ER* [Depakote *ER* -] 250 mg PO BID 09/23/18 Docusate Sodium [Stool Softener] 100 mg PO HS 09/23/18 Donepezil HCl [Aricept -] 10 mg PO DAILY 09/23/18 Hydralazine HCl 50 mg PO TID 09/23/18 Insulin Glargine,Hum.rec.anlog [Lantus] 14 unit SQ ACBK 09/23/18 Insulin NPH Human Isophane [Humulin N] 1 unit SQ BIDAC 09/23/18 Labetalol HCl 400 mg PO TID 09/23/18 Lipase/Protease/Amylase [Elaine Sweeney 36,000 Units Capsule] 1 each PO TID 09/23/18 Mirtazapine 30 mg PO HS 09/23/18 Nifedipine [Procardia Xl] 60 mg PO BID 09/23/18 Olmesartan Medoxomil [Benicar (Nf)] 40 mg PO DAILY 09/23/18 Ondansetron HCl [Zofran] 4 mg PO PRN PRN 09/23/18 Pantoprazole Sodium [Protonix] 40 mg PO DAILY 09/23/18 Potassium Chloride [K-Dur -] 20 meq PO DAILY 09/23/18 Torsemide [Demadex] 40 mg PO BID 09/23/18 traMADol HCL [Ultram -] 50 mg PO TID PRN 09/23/18 Review of Systems - Review of Systems Constitutional: reports: No Symptoms Eyes: reports: No Symptoms HENT: reports: No Symptoms Neck: reports: No Symptoms Cardiovascular: reports: Chest Pain, Shortness of Breath Respiratory: reports: Cough Gastrointestinal: reports: No Symptoms Genitourinary: reports: No Symptoms Breasts: reports: No Symptoms Reported Musculoskeletal: reports: No Symptoms Integumentary: reports: No Symptoms Neurological: reports: No Symptoms Endocrine: reports: No Symptoms Hematology/Lymphatic: reports: No Symptoms Psychiatric: reports: No Symptoms Nephrology Consult - Height Height: 5 ft 1 in - Weight Weight: 148 lb 3.2 oz - BMI Body Mass Index (BMI): 28.0 - Lab Results CBC,BMP: CBC, BMP 09/24/18 05:10 09/24/18 05:10 Anion Gap: Anion Gap Anion Gap 7 MMOL/L (8-16) L 09/24/18 05:10 - Imaging Chest X-ray: Report Reviewed - Physical Examination Vital Signs: Vital Signs Temperature 97.9 F 09/24/18 01:00 Pulse Rate 55 L 09/24/18 04:39 Respiratory Rate 11 09/24/18 04:39 Blood Pressure 133/66 09/24/18 04:39 O2 Sat by Pulse Oximetry (%) 99 09/24/18 04:46 Constitutional: Yes: Well Nourished, No Distress, Anxious Eyes: Yes: Conjunctiva Clear, EOM Intact HENT: Yes: Atraumatic, Normocephalic Neck: Yes: Supple, Trachea Midline Cardiovascular: Yes: Regular Rate and Rhythm, Murmur Respiratory: Yes: Diminished, Rales Gastrointestinal: Yes: Normal Bowel Sounds Musculoskeletal: Yes: WNL Extremities: Yes: WNL Edema: Yes Edema: LLE: 2+, RLE: 2+ Neurological: Yes: Alert, Oriented Psychiatric: Yes: Alert, Oriented Assessment/Plan IMPRESSION Pt has ckd probably due to dm and htn. She had a previous work up which seems to have been unrevealing. She does have proteinuria and has normal sized kidneys. it does appear that she has an acute component which is likely to be due to uncontrolled htn or chf/meds PLAN her creat is already better so would continue same meds obtain bladder scan to make sure she is not obstructed though I doubt repeat urine protein and creat will follow MV
[2018-09-24] MEDS: PANTOPRAZOLE 40 MG TABLET (FP) PO SCH (09:09)
[2018-09-24] MEDS: DIVALPROEX SODIUM 250 MG TABLET E.C. PO SCH (09:09)
[2018-09-24] MEDS: ENOXAPARIN NA (PORCINE) 30 MG/0.3 ML DISP.SYRIN SQ SCH (09:09)
[2018-09-24] MEDS: DONEPEZIL HCL 10 MG TABLET (FP) PO SCH (09:09)
[2018-09-24] MEDS: ASPIRIN COATED 81 MG TABLET.EC PO SCH (09:09)
[2018-09-24] MEDS: POTASSIUM CHLORIDE TABS 20 MEQ TABLET.ER (FP) PO SCH (09:09)
[2018-09-24] MEDS: NIFEdipine E.R. 30 MG TABLET (FP) PO SCH (09:10)
[2018-09-24] MEDS: INSULIN (LEVEMIR) 100 UNITS/ML UNITS SQ SCH (09:13)
[2018-09-24] MEDS ORDERED: DEXTROSE 50%-WATER - 25 GM/50 ML VIAL IVPUSH PRN (09:55)
--- NOTE | 2018-09-24 09:55 | PN ---
Progress Note, Physician Chief Complaint: CHF exacerbation HTN Hypothyroidism Anemia History of Present Illness: NAD feels a little better - Current Medication List Current Medications: Active Medications Acetaminophen (Tylenol -) 650 mg PO Q4H PRN PRN Reason: PAIN LEVEL 1-5 Albuterol/Ipratropium (Duoneb -) 1 amp NEB RQID [facility] Last Admin: 09/23/18 17:18 Dose: 1 amp Aspirin (Ecotrin -) 81 mg PO DAILY [facility] Last Admin: 09/24/18 09:09 Dose: 81 mg Atorvastatin Calcium (Lipitor -) 20 mg PO HS [facility] Last Admin: 09/23/18 21:23 Dose: 20 mg Bupropion HCl (Wellbutrin Xl -) 150 mg PO DAILY [facility] Last Admin: 09/24/18 09:09 Dose: 150 mg Carbidopa/Levodopa (Sinemet 25/100 -) 1 each PO TID [facility] Last Admin: 09/24/18 06:08 Dose: 1 each Divalproex Sodium (Depakote -) 250 mg PO DAILY [facility] Last Admin: 09/24/18 09:09 Dose: 250 mg Divalproex Sodium (Depakote -) 125 mg PO HS [facility] Last Admin: 09/23/18 23:38 Dose: 125 mg Docusate Sodium (Colace -) 100 mg PO [facility] Last Admin: 09/23/18 21:19 Dose: 100 mg Donepezil HCl (Aricept -) 10 mg PO DAILY [facility] Last Admin: 09/24/18 09:09 Dose: 10 mg Enoxaparin Sodium (Lovenox -) 30 mg SQ DAILY [facility] Last Admin: 09/24/18 09:09 Dose: 30 mg Furosemide (Lasix Injection -) 40 mg IVPUSH BID@0600,1400 [facility] Last Admin: 09/24/18 06:07 Dose: 40 mg Hydralazine HCl (Apresoline -) 50 mg PO TID [facility] Last Admin: 09/24/18 06:08 Dose: 50 mg Insulin Aspart (Novolog Vial Sliding Scale -) 1 vial SQ TIDAC [facility]; Protocol Last Admin: 09/24/18 06:07 Dose: Not Given Insulin Detemir (Levemir Vial) 10 units SQ AM [facility] Last Admin: 09/24/18 09:13 Dose: Not Given Labetalol HCl (Normodyne -) 400 mg PO TID [facility] Last Admin: 09/24/18 06:08 Dose: 400 mg Levothyroxine Sodium (Synthroid -) 25 mcg PO DAILY@0700 [facility] Mirtazapine (Remeron -) 30 mg PO HS [facility] Last Admin: 09/23/18 21:20 Dose: 30 mg Nifedipine (Procardia Xl -) 30 mg PO BID [facility] Last Admin: 09/24/18 09:10 Dose: 30 mg Non-Formulary Medication (Olmesartan Medoxomil) 40 mg PO DAILY [facility] Pancrelipase (Creon Dr 36,000 Units Capsule) 1 cap PO TIDCM [facility] Pantoprazole Sodium (Protonix -) 40 mg PO DAILY [facility] Last Admin: 09/24/18 09:09 Dose: 40 mg Potassium Chloride (K-Dur -) 20 meq PO DAILY [facility] Last Admin: 09/24/18 09:09 Dose: 20 meq Tramadol HCl (Ultram -) 50 mg PO TID PRN PRN Reason: PAIN LEVEL 6-10 - Objective Vital Signs: Vital Signs Temperature 98.6 F 09/24/18 09:00 Pulse Rate 55 L 09/24/18 09:00 Respiratory Rate 16 09/24/18 09:00 Blood Pressure 194/51 H 09/24/18 09:00 O2 Sat by Pulse Oximetry (%) 99 09/24/18 04:46 Constitutional: Yes: Well Nourished, No Distress, Calm Cardiovascular: Yes: Regular Rate and Rhythm Respiratory: Yes: Regular Gastrointestinal: Yes: Normal Bowel Sounds, Soft Musculoskeletal: Yes: Muscle Weakness Extremities: Yes: WNL Edema: Yes Edema: LLE: 1+, RLE: 1+ Peripheral Pulses WNL: Yes Neurological: Yes: Alert, Oriented Psychiatric: Yes: Alert, Oriented Labs: CBC, BMP 09/24/18 05:10 09/24/18 05:10 Problem List - Problems (1) JASPER (acute kidney injury) Assessment/Plan: -nephrology consult -Cr trending down -monitor trend Code(s): N17.9 - ACUTE KIDNEY FAILURE, UNSPECIFIED (2) Acute on chronic diastolic (congestive) heart failure Assessment/Plan: -Cardiology consult -Tele monitoring -mildly bradycardiac on tele -Diruesis -low sodium diabetic diet -daily weights Code(s): I50.33 - ACUTE ON CHRONIC DIASTOLIC (CONGESTIVE) HEART FAILURE (3) Anemia Assessment/Plan: -chronic -hematology consult -likely dilutional -[place] transfusion for Hg<7.0 to avoid fluid overload -Repeat Iron profile/folate pending -B12 normal -Tsh elevated -Stool Ob pending Code(s): D64.9 - ANEMIA, UNSPECIFIED (4) Diabetes Assessment/Plan: -BGM AC HS -Diabetic low sodium diet -Decrease levemir to 10 U QAM due to hypoglycemia -ISS -D50PRN for symptomatic hypoglycemia below 70 mg/dl Code(s): E11.9 - TYPE 2 DIABETES MELLITUS WITHOUT COMPLICATIONS (5) HTN (hypertension) Assessment/Plan: -Cardiology consult -Tele monitoring -mildly bradycardiac on tele -Diruesis -low sodium diabetic diet Code(s): I10 - ESSENTIAL (PRIMARY) HYPERTENSION (6) SOB (shortness of breath) Assessment/Plan: -Pulmonary consult -2/2 to CHF -Bronchodilators for immediate relief -Nasal O2 PRN, keep Spo2 >90% -diuresis Code(s): R06.02 - SHORTNESS OF BREATH Assessment/Plan see problem list Physical therapy
--- NOTE | 2018-09-24 09:59 | CON.PULM ---
Consult Consult Specialty:: PULMONARY Referred by:: Dr Espana Reason for Consultation:: shortness of breath - History of Present Illness Chief Complaint: shortness of breath History of Present Illness: 78yo female with h/o HTN, DM, LV diastolic dysfunction, pulmonary HTN, diverticulosis, CKD, Parkinsons, recently discharged for uncontrolled HTN, CHF exacerbation who was admitted with worsening shortness of breath. Reports right sided chest pain described as pressure like, nonradiating. No cough or wheezing. No fevers, chills or sweats. Reports increase in her leg swelling and reports orthopnea. No history of asthma or COPD. She is a never smoker. 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: Yes: Dementia, Peripheral Neuropathy, Parkinson's Cardio/Vascular: Yes: HTN, Hyperlipdemia Gastrointestinal: Yes: Diverticulosis Psych: Yes: Anxiety Musculoskeletal: Yes: Osteoarthritis Endocrine: Yes: Diabetes Mellitus - Past Surgical History Past Surgical History: Yes: Appendectomy, Cholecystectomy, - Alcohol/Substance Use Hx Alcohol Use: No - Smoking History Smoking history: Never smoked Have you smoked in the past 12 months: No Aproximately how many cigarettes per day: 0 - Social History Usual Living Arrangement: With Significant Other 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 History of Recent Travel: No Home Medications - Allergies Allergies/Adverse Reactions: Allergies Allergy/AdvReac Type Severity Reaction Status Date / Time valsartan [From [employer]] Allergy Mild Verified 09/23/18 11:27 - Home Medications Home Medications: Ambulatory Orders Aspirin [Adult Aspirin Regimen] 81 mg PO DAILY 09/23/18 Atorvastatin Ca [Lipitor] 20 mg PO HS 09/23/18 Bupropion HCl [Wellbutrin Xl -] 150 mg PO DAILY 09/23/18 Carbidopa/Levodopa 25/100 [Sinemet 25/100 -] 1 each PO TID 09/23/18 Divalproex *ER* [Depakote *ER* -] 250 mg PO BID 09/23/18 Docusate Sodium [Stool Softener] 100 mg PO HS 09/23/18 Donepezil HCl [Aricept -] 10 mg PO DAILY 09/23/18 Hydralazine HCl 50 mg PO TID 09/23/18 Insulin Glargine,Hum.rec.anlog [Lantus] 14 unit SQ ACBK 09/23/18 Insulin NPH Human Isophane [Humulin N] 1 unit SQ BIDAC 09/23/18 Labetalol HCl 400 mg PO TID 09/23/18 Lipase/Protease/Amylase [Elaine Sweeney 36,000 Units Capsule] 1 each PO TID 09/23/18 Mirtazapine 30 mg PO HS 09/23/18 Nifedipine [Procardia Xl] 60 mg PO BID 09/23/18 Olmesartan Medoxomil [Benicar (Nf)] 40 mg PO DAILY 09/23/18 Ondansetron HCl [Zofran] 4 mg PO PRN PRN 09/23/18 Pantoprazole Sodium [Protonix] 40 mg PO DAILY 09/23/18 Potassium Chloride [K-Dur -] 20 meq PO DAILY 09/23/18 Torsemide [Demadex] 40 mg PO BID 09/23/18 traMADol HCL [Ultram -] 50 mg PO TID PRN 09/23/18 Review of Systems - Review of Systems Constitutional: reports: Weakness. denies: Chills, Fever Eyes: denies: Recent Change in Vision HENT: denies: Nasal Congestion, Throat Pain Neck: denies: Stiffness, Tenderness Cardiovascular: reports: Chest Pain, Edema, Shortness of Breath Respiratory: reports: Orthopnea. denies: Cough, Wheezing Gastrointestinal: denies: Abdominal Pain, Nausea, Vomiting Genitourinary: denies: Dysuria, Hematuria Neurological: denies: Dizziness, Headache Endocrine: denies: Unexplained Weight Loss Physical Exam Vital Sings: Vital Signs Temperature 98.6 F 09/24/18 09:00 Pulse Rate 55 L 09/24/18 09:00 Respiratory Rate 16 09/24/18 09:00 Blood Pressure 194/51 H 09/24/18 09:00 O2 Sat by Pulse Oximetry (%) 99 09/24/18 04:46 Constitutional: Yes: Calm Eyes: Yes: Conjunctiva Clear, EOM Intact HENT: Yes: Atraumatic, Normocephalic Neck: Yes: Supple, Trachea Midline Cardiovascular: Yes: Regular Rate and Rhythm, JVD Respiratory: Yes: Diminished (decreased breath sounds at the bases) ...Clubbing: No Gastrointestinal: Yes: Normal Bowel Sounds, Soft. No: Tenderness Edema: Yes Neurological: Yes: Alert, Oriented Labs: CBC, BMP 09/24/18 05:10 09/24/18 05:10 Imaging - Results Chest X-ray: Report Reviewed, Image Reviewed (bilateral effusions, pulmonary vascular congestion) Problem List - Problems (1) Acute on chronic diastolic (congestive) heart failure Code(s): I50.33 - ACUTE ON CHRONIC DIASTOLIC (CONGESTIVE) HEART FAILURE (2) CKD (chronic kidney disease) Code(s): N18.9 - CHRONIC KIDNEY DISEASE, UNSPECIFIED (3) Diabetes Code(s): E11.9 - TYPE 2 DIABETES MELLITUS WITHOUT COMPLICATIONS (4) HLD (hyperlipidemia) Code(s): E78.5 - HYPERLIPIDEMIA, UNSPECIFIED (5) HTN (hypertension) Code(s): I10 - ESSENTIAL (PRIMARY) HYPERTENSION (6) Pleural effusion Code(s): J90 - PLEURAL EFFUSION, NOT ELSEWHERE CLASSIFIED Assessment/Plan Acute on Chronic Diastolic Heart Failure Poorly Controlled HTN Pulmonary HTN Acute on Chronic Renal Failure DM Hyperlipidemia Parkinsons Anemia - IV lasix - monitor urine output, creatinine - daily weights - O2 to keep Spo2 >90% - beta curtis - BP control - DVT prophylaxis Thank you for this consult Polo Thakkar MD
[2018-09-24] MEDS: LEVOTHYROXINE NA 25 MCG TABLET (FP) PO SCH (10:36)
[2018-09-24] MEDS: LIPASE/PROTEASE/AMYLASE 36,000 UNIT CAPSULE PO SCH ×3 (10:36→17:04)
--- NOTE | 2018-09-24 10:51 | CON.CARD ---
Consult Consult Specialty:: cardiology Referred by:: Malorie Reason for Consultation:: Shortness of breath and generalized weakness - History of Present Illness Chief Complaint: Shortness of breath and back pain History of Present Illness: The patient is a 78-year-old obese female, we've a history of diabetes, hypertension, hyperlipidemia, Parkinson's dementia, diverticulosis, GI bleed, normal left ventricular ejection fraction 05/03/2018, now presenting with recurrent shortness of breath, acute on chronic diastolic heart failure. The patient is in mild respiratory distress. Complaining of right-sided reproducible chest and back pains. 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: Dementia, Peripheral Neuropathy, Parkinson's Cardio/Vascular: Yes: HTN, Hyperlipdemia Gastrointestinal: Yes: Diverticulosis Psych: Yes: Anxiety Musculoskeletal: Yes: Osteoarthritis Endocrine: Yes: Diabetes Mellitus - Past Surgical History Past Surgical History: Yes: Appendectomy, Cholecystectomy, - Alcohol/Substance Use Hx Alcohol Use: No - Smoking History Smoking history: Never smoked Have you smoked in the past 12 months: No Aproximately how many cigarettes per day: 0 - Social History Usual Living Arrangement: With Significant Other 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 History of Recent Travel: No Home Medications - Allergies Allergies/Adverse Reactions: Allergies Allergy/AdvReac Type Severity Reaction Status Date / Time valsartan [From Diovan] Allergy Mild Verified 09/23/18 11:27 - Home Medications Home Medications: Ambulatory Orders Aspirin [Adult Aspirin Regimen] 81 mg PO DAILY 09/23/18 Atorvastatin Ca [Lipitor] 20 mg PO HS 09/23/18 Bupropion HCl [Wellbutrin Xl -] 150 mg PO DAILY 09/23/18 Carbidopa/Levodopa 25/100 [Sinemet 25/100 -] 1 each PO TID 09/23/18 Divalproex *ER* [Depakote *ER* -] 250 mg PO BID 09/23/18 Docusate Sodium [Stool Softener] 100 mg PO HS 09/23/18 Donepezil HCl [Aricept -] 10 mg PO DAILY 09/23/18 Hydralazine HCl 50 mg PO TID 09/23/18 Insulin Glargine,Hum.rec.anlog [Lantus] 14 unit SQ ACBK 09/23/18 Insulin NPH Human Isophane [Humulin N] 1 unit SQ BIDAC 09/23/18 Labetalol HCl 400 mg PO TID 09/23/18 Lipase/Protease/Amylase [Creon Dr 36,000 Units Capsule] 1 each PO TID 09/23/18 Mirtazapine 30 mg PO HS 09/23/18 Nifedipine [Procardia Xl] 60 mg PO BID 09/23/18 Olmesartan Medoxomil [Benicar (Nf)] 40 mg PO DAILY 09/23/18 Ondansetron HCl [Zofran] 4 mg PO PRN PRN 09/23/18 Pantoprazole Sodium [Protonix] 40 mg PO DAILY 09/23/18 Potassium Chloride [K-Dur -] 20 meq PO DAILY 09/23/18 Torsemide [Demadex] 40 mg PO BID 09/23/18 traMADol HCL [Ultram -] 50 mg PO TID PRN 09/23/18 Review of Systems - Review of Systems Constitutional: reports: Lethargy, Weakness Eyes: reports: No Symptoms HENT: reports: No Symptoms Neck: reports: No Symptoms Cardiovascular: reports: Chest Pain, Edema, Shortness of Breath Respiratory: reports: SOB Gastrointestinal: reports: No Symptoms Genitourinary: reports: No Symptoms Breasts: reports: No Symptoms Reported Musculoskeletal: reports: Back Pain Integumentary: reports: No Symptoms Neurological: reports: No Symptoms Endocrine: reports: No Symptoms Hematology/Lymphatic: reports: No Symptoms Psychiatric: reports: No Symptoms Vital Signs: Vital Signs Temperature 98.6 F 09/24/18 09:00 Pulse Rate 59 L 09/24/18 10:00 Respiratory Rate 18 09/24/18 10:00 Blood Pressure 193/51 H 09/24/18 10:00 O2 Sat by Pulse Oximetry (%) 99 09/24/18 04:46 Constitutional: Yes: Obese Eyes: Yes: WNL, Conjunctiva Clear, EOM Intact HENT: Yes: WNL, Atraumatic, Normocephalic Neck: Yes: WNL, Supple, Trachea Midline Respiratory: Yes: Rales Gastrointestinal: Yes: WNL, Normal Bowel Sounds, Soft Renal/: Yes: WNL Cardiovascular: Yes: Regular Rate and Rhythm JVD: No Carotid Bruit: No PMI: Non-Displaced Heart Sounds: Yes: S1, S2 Murmur: Yes: Systolic Murmur, Grade 2 Musculoskeletal: Yes: Back Pain Edema: Yes Edema: LLE: 1+, RLE: 1+ Peripheral Pulses: 1+ Left Carotid, 1+ Right Carotid, 1+ Left Femoral, 1+ Right Femoral, 1+ Left Popliteal, 1+ Right Popliteal, 1+ Left Doralis Pedis, 1+ Right Dorsalis Pedis Neurological: Yes: WNL, Alert, Oriented ...Motor Strength: WNL - Other Data Labs, Other Data: CBC, BMP 09/24/18 05:10 09/24/18 05:10 Troponin, BNP 09/23/18 13:58 Troponin I < 0.02 B-Natriuretic Peptide 6936.0 H Troponin, BNP 09/23/18 13:58 Troponin I < 0.02 B-Natriuretic Peptide 6936.0 H Assessment/Plan The patient is a 78-year-old obese female, we've a history of diabetes, hypertension, hyperlipidemia, Parkinson's dementia, diverticulosis, GI bleed, normal left ventricular ejection fraction 05/03/2018, now presenting with recurrent shortness of breath, acute on chronic diastolic heart failure. The patient is in mild respiratory distress. Complaining of right-sided reproducible chest and back pains. There is no evidence of ischemia nor acute coronary syndrome. The blood pressure needs better control. Please continue intravenous Lasix as currently. Low-sodium diet with fluid restrictions. Watch renal function. May increase nifedipine XL to 60 mg twice daily. Consider increasing hydralazine if the above measures are not sufficient. There is no need for further cardiac workup nor testing at this point. The patient is clinically and symptomatically better, responding to treatment. Please do not hesitate to call us PRN.
[2018-09-24] MEDS: PATIENT'S OWN MEDICATION (NON-FORMULARY) (Olmesartan Medoxomil 40 MG) PO SCH (11:09)
[2018-09-24] MEDS ORDERED: NIFEdipine E.R. 30 MG TABLET (FP) PO ONE (13:37)
--- NOTE | 2018-09-24 14:43 | EKG ---
Test Reason : Blood Pressure : / mmHG Vent. Rate : 050 BPM Atrial Rate : 050 BPM P-R Int : 188 ms QRS Dur : 110 ms QT Int : 436 ms P-R-T Axes : 000 -31 045 degrees QTc Int : 397 ms SINUS BRADYCARDIA LEFT AXIS DEVIATION ABNORMAL ECG WHEN COMPARED WITH ECG OF 13-SEP-2018 22:47, NO SIGNIFICANT CHANGE WAS FOUND Confirmed by MD ALBERTO MOYSES ([id number]) on 09/24/2018 2:43:09 PM Referred By: Confirmed By:ADILENE ALBERTO MD
[2018-09-24] MEDS: ALBUTEROL SO4 2.5/IPRATROPIUM 0.5 INH SOL 3 ML VIAL.NEB. NEB SCH ×2 (17:53→20:50)
[2018-09-24] MEDS ORDERED: MIRTAZAPINE 15 MG TABLET (FP) ONE (19:29)
[2018-09-24] MEDS: ATORVASTATIN CA 20 MG TABLET (FP) PO SCH (21:17)
[2018-09-24] MEDS: NIFEdipine E.R 60 MG TABLET (UD) PO SCH (21:19)
[2018-09-24] MEDS: MIRTAZAPINE 30 MG TABLET (FP) PO SCH (21:20)
[2018-09-24] MEDS: DOCUSATE SODIUM 100 MG CAPSULE (FP) PO SCH (21:21)
[2018-09-24] MEDS: DIVALPROEX SODIUM 125 MG TABLET E.C. PO SCH (21:25)
[2018-09-25] MEDS: LABETALOL HCL 200 MG TABLET (FP) PO SCH ×4 (05:21→21:41)
[2018-09-25] MEDS: FUROSEMIDE 40 MG/4 ML INJECTABLE VIAL IVPUSH SCH ×2 (05:21→14:30)
[2018-09-25] MEDS: hydrALAZINE HCL 50 MG TABLET (FP) PO SCH ×4 (05:21→21:41)
[2018-09-25] MEDS: CARBIDOPA/LEVODOPA 25/100 TABLET (FP) PO SCH ×3 (05:22→21:00)
[2018-09-25] MEDS: INSULIN SLIDING SCALE (NOVOLOG) 1 VIAL SQ SCH ×3 (06:25→17:03)
[2018-09-25] MEDS: LEVOTHYROXINE NA 25 MCG TABLET (FP) PO SCH (06:29)
[2018-09-25] MEDS: INSULIN (LEVEMIR) 100 UNITS/ML UNITS SQ SCH (06:29)
[2018-09-25 06:41] LABS: SERUM IRON SATURATION 9 % (15-55); TOTAL IRON BINDING CAPACITY 260 ug/dL (250-450)
--- NOTE | 2018-09-25 08:27 | PN ---
Progress Note (short form) - Note Progress Note: RENAL Pt is awake and alert comfortable states she feels better than yesterday Last Vital Signs Temp Pulse Resp BP Pulse Ox 98.6 F 58 L 18 176/61 H 99 09/25/18 06:00 09/25/18 06:00 09/25/18 06:00 09/25/18 06:00 09/24/18 21:00 lungs bilat crackles at bases cvs s1s2 rr abd soft ext +edema neuro a+ox3 CBC, BMP 09/24/18 05:10 09/24/18 05:10 Current Medications Generic Name Dose Route Start Last Admin Trade Name Freq PRN Reason Stop Dose Admin Acetaminophen 650 mg 09/23/18 15:59 Tylenol - PO Q4H PRN PAIN LEVEL 1-5 Albuterol/Ipratropium 1 amp 09/23/18 16:00 09/24/18 20:50 Duoneb - NEB 1 amp RQID JOYCE Administration Alprazolam 0.5 mg 09/24/18 18:22 Xanax - PO Q12H PRN ANXIETY Aspirin 81 mg 09/24/18 10:00 09/24/18 09:09 Ecotrin - PO 81 mg DAILY JOYCE Administration Atorvastatin Calcium 20 mg 09/23/18 22:00 09/24/18 21:17 Lipitor - PO 20 mg HS JOYCE Administration Bupropion HCl 150 mg 09/24/18 10:00 09/24/18 09:09 Wellbutrin Xl - PO 150 mg DAILY JOYCE Administration Carbidopa/Levodopa 1 each 09/23/18 16:00 09/25/18 05:22 Sinemet 25/100 - PO 1 each TID JOYCE Administration Dextrose 25 gm 09/24/18 09:55 D50w (Vial) - IVPUSH PRN PRN HYPOGLYCEMIA Divalproex Sodium 250 mg 09/24/18 10:00 09/24/18 09:09 Depakote - PO 250 mg DAILY JOYCE Administration Divalproex Sodium 125 mg 09/23/18 22:00 09/24/18 21:25 Depakote - PO 125 mg HS JOYCE Administration Docusate Sodium 100 mg 09/23/18 22:00 09/24/18 21:21 Colace - PO 100 mg HS JOYCE Administration Donepezil HCl 10 mg 09/24/18 10:00 09/24/18 09:09 Aricept - PO 10 mg DAILY JOYCE Administration Enoxaparin Sodium 30 mg 09/24/18 10:00 09/24/18 09:09 Lovenox - SQ 30 mg DAILY JOYCE Administration Furosemide 40 mg 09/24/18 06:00 09/25/18 05:21 Lasix Injection - IVPUSH 40 mg BID@0600,1400 JOYCE Administration Hydralazine HCl 50 mg 09/23/18 16:00 09/25/18 05:21 Apresoline - PO 50 mg TID JOYCE Administration Insulin Aspart 1 vial 09/23/18 16:30 09/25/18 06:25 Novolog Vial Sliding Scale - SQ Not Given T[facility]AC [facility] Protocol Insulin Detemir 10 units 09/24/18 07:00 09/25/18 06:29 Levemir Vial SQ 10 units AM JOYCE Administration Labetalol HCl 400 mg 09/23/18 16:00 09/25/18 05:21 Normodyne - PO 400 mg TID JOYCE Administration Levothyroxine Sodium 25 mcg 09/24/18 09:50 09/25/18 06:29 Synthroid - PO 25 mcg DAILY@0700 JOYCE Administration Mirtazapine 30 mg 09/23/18 22:00 09/24/18 21:20 Remeron - PO 30 mg HS JOYCE Administration Nifedipine 60 mg 09/24/18 13:37 09/24/18 21:19 Procardia Xl - PO 60 mg BID JOYCE Administration Non-Formulary Medication 40 mg 09/24/18 10:00 09/24/18 11:09 Olmesartan Medoxomil PO 40 mg DAILY JOYCE Administration Pancrelipase 1 cap 09/23/18 17:30 09/24/18 17:04 Elaine Sweeney 36,000 Units Capsule PO 1 cap TIDCM JOYCE Administration Pantoprazole Sodium 40 mg 09/24/18 10:00 09/24/18 09:09 Protonix - PO 40 mg DAILY JOYCE Administration Potassium Chloride 20 meq 09/24/18 10:00 09/24/18 09:09 K-Dur - PO 20 meq DAILY JOYCE Administration Tramadol HCl 50 mg 09/23/18 15:50 Ultram - PO TID PRN PAIN LEVEL 6-10 IMPRESSion ckd proteinuria chf hypothyroidism PLAN ckd seems to have been worked up previously obtain repeat sono to evaluate for retention continue lasix monitor BP on current meds add aldactone if k level remains acceptable protein and creat MV
[2018-09-25] MEDS ORDERED: PT OWN MED DRAWER 7, Y5N ONE ×2 (08:35→19:54)
[2018-09-25] MEDS: LIPASE/PROTEASE/AMYLASE 36,000 UNIT CAPSULE PO SCH ×3 (08:37→17:59)
[2018-09-25] MEDS: NIFEdipine E.R 60 MG TABLET (UD) PO SCH ×4 (08:39→21:41)
[2018-09-25] MEDS: ALBUTEROL SO4 2.5/IPRATROPIUM 0.5 INH SOL 3 ML VIAL.NEB. NEB SCH ×4 (08:45→20:05)
[2018-09-25] MEDS: DIVALPROEX SODIUM 250 MG TABLET E.C. PO SCH (10:02)
[2018-09-25] MEDS: ASPIRIN COATED 81 MG TABLET.EC PO SCH (10:03)
[2018-09-25] MEDS: PANTOPRAZOLE 40 MG TABLET (FP) PO SCH (10:03)
[2018-09-25] MEDS: POTASSIUM CHLORIDE TABS 20 MEQ TABLET.ER (FP) PO SCH (10:03)
[2018-09-25] MEDS: DONEPEZIL HCL 10 MG TABLET (FP) PO SCH (10:03)
[2018-09-25] MEDS: ENOXAPARIN NA (PORCINE) 30 MG/0.3 ML DISP.SYRIN SQ SCH (10:03)
[2018-09-25] MEDS: PATIENT'S OWN MEDICATION (NON-FORMULARY) (Olmesartan Medoxomil 40 MG) PO SCH (10:11)
--- NOTE | 2018-09-25 10:53 | PN ---
Progress Note (short form) - Note Progress Note: PULMONARY States breathing better. No chest pain. Vital Signs Period Temp Pulse Resp BP Sys/East Pulse Ox Last 24 Hr 98.6 F 52-60 17-18 144-193/45-78 99-99 Intake & Output 09/22/18 09/23/18 09/24/18 09/25/18 23:59 23:59 23:59 23:59 Intake Total 350 520 120 Output Total 300 400 Balance 50 120 120 Weight 64.501 kg 67.222 kg 64.501 kg Gen: mildly tachypneic at rest Heart: RRR Lung: decreased breath sounds at the bases Abd: soft, nontender Ext: less edema CBC, BMP 09/24/18 05:10 09/24/18 05:10 Active Medications Acetaminophen (Tylenol -) 650 mg PO Q4H PRN PRN Reason: PAIN LEVEL 1-5 Albuterol/Ipratropium (Duoneb -) 1 amp NEB RQID [facility] Last Admin: 09/25/18 08:45 Dose: 1 amp Alprazolam (Xanax -) 0.5 mg PO Q12H PRN PRN Reason: ANXIETY Aspirin (Ecotrin -) 81 mg PO DAILY [facility] Last Admin: 09/25/18 10:03 Dose: 81 mg Atorvastatin Calcium (Lipitor -) 20 mg PO HS [facility] Last Admin: 09/24/18 21:17 Dose: 20 mg Bupropion HCl (Wellbutrin Xl -) 150 mg PO DAILY [facility] Last Admin: 09/25/18 10:03 Dose: 150 mg Carbidopa/Levodopa (Sinemet 25/100 -) 1 each PO TID [facility] Last Admin: 09/25/18 05:22 Dose: 1 each Dextrose (D50w (Vial) -) 25 gm IVPUSH PRN PRN PRN Reason: HYPOGLYCEMIA Divalproex Sodium (Depakote -) 250 mg PO DAILY [facility] Last Admin: 09/25/18 10:02 Dose: 250 mg Divalproex Sodium (Depakote -) 125 mg PO HS [facility] Last Admin: 09/24/18 21:25 Dose: 125 mg Docusate Sodium (Colace -) 100 mg PO HS [facility] Last Admin: 09/24/18 21:21 Dose: 100 mg Donepezil HCl (Aricept -) 10 mg PO DAILY [facility] Last Admin: 09/25/18 10:03 Dose: 10 mg Enoxaparin Sodium (Lovenox -) 30 mg SQ DAILY [facility] Last Admin: 09/25/18 10:03 Dose: 30 mg Furosemide (Lasix Injection -) 40 mg IVPUSH BID@0600,1400 [facility] Last Admin: 09/25/18 05:21 Dose: 40 mg Hydralazine HCl (Apresoline -) 50 mg PO TID [facility] Last Admin: 09/25/18 05:21 Dose: 50 mg Insulin Aspart (Novolog Vial Sliding Scale -) 1 vial SQ TIDAC [facility]; Protocol Last Admin: 09/25/18 06:25 Dose: Not Given Insulin Detemir (Levemir Vial) 10 units SQ AM [facility] Last Admin: 09/25/18 06:29 Dose: 10 units Labetalol HCl (Normodyne -) 400 mg PO TID [facility] Last Admin: 09/25/18 05:21 Dose: 400 mg Levothyroxine Sodium (Synthroid -) 25 mcg PO DAILY@0700 [facility] Last Admin: 09/25/18 06:29 Dose: 25 mcg Mirtazapine (Remeron -) 30 mg PO HS [facility] Last Admin: 09/24/18 21:20 Dose: 30 mg Nifedipine (Procardia Xl -) 60 mg PO BID [facility] Last Admin: 09/25/18 10:04 Dose: Not Given Non-Formulary Medication (Olmesartan Medoxomil) 40 mg PO DAILY [facility] Last Admin: 09/25/18 10:11 Dose: 40 mg Pancrelipase (Creon Dr 36,000 Units Capsule) 1 cap PO TIDCM [facility] Last Admin: 09/25/18 08:37 Dose: 1 cap Pantoprazole Sodium (Protonix -) 40 mg PO DAILY [facility] Last Admin: 09/25/18 10:03 Dose: 40 mg Potassium Chloride (K-Dur -) 20 meq PO DAILY [facility] Last Admin: 09/25/18 10:03 Dose: 20 meq Tramadol HCl (Ultram -) 50 mg PO TID PRN PRN Reason: PAIN LEVEL 6-10 A/P Acute on Chronic Diastolic Heart Failure Poorly Controlled HTN Pulmonary HTN Acute on Chronic Renal Failure DM Hyperlipidemia Parkinsons Anemia - continue lasix - monitor urine output, creatinine - daily weights - repeat CXR in AM - O2 to keep Spo2 >90% - beta curtis - BP control - DVT prophylaxis Problem List - Problems (1) Acute on chronic diastolic (congestive) heart failure Code(s): I50.33 - ACUTE ON CHRONIC DIASTOLIC (CONGESTIVE) HEART FAILURE (2) CKD (chronic kidney disease) Code(s): N18.9 - CHRONIC KIDNEY DISEASE, UNSPECIFIED (3) Diabetes Code(s): E11.9 - TYPE 2 DIABETES MELLITUS WITHOUT COMPLICATIONS (4) HLD (hyperlipidemia) Code(s): E78.5 - HYPERLIPIDEMIA, UNSPECIFIED (5) HTN (hypertension) Code(s): I10 - ESSENTIAL (PRIMARY) HYPERTENSION (6) Pleural effusion Code(s): J90 - PLEURAL EFFUSION, NOT ELSEWHERE CLASSIFIED
--- NOTE | 2018-09-25 12:23 | PN ---
Progress Note, Physician Chief Complaint: CHF exacerbation HTN Hypothyroidism Anemia History of Present Illness: NAD feels a little better - Current Medication List Current Medications: Active Medications Acetaminophen (Tylenol -) 650 mg PO Q4H PRN PRN Reason: PAIN LEVEL 1-5 Albuterol/Ipratropium (Duoneb -) 1 amp NEB RQID [facility] Last Admin: 09/25/18 08:45 Dose: 1 amp Alprazolam (Xanax -) 0.5 mg PO Q12H PRN PRN Reason: ANXIETY Aspirin (Ecotrin -) 81 mg PO DAILY [facility] Last Admin: 09/25/18 10:03 Dose: 81 mg Atorvastatin Calcium (Lipitor -) 20 mg PO HS [facility] Last Admin: 09/24/18 21:17 Dose: 20 mg Bupropion HCl (Wellbutrin Xl -) 150 mg PO DAILY [facility] Last Admin: 09/25/18 10:03 Dose: 150 mg Carbidopa/Levodopa (Sinemet 25/100 -) 1 each PO TID [facility] Last Admin: 09/25/18 05:22 Dose: 1 each Dextrose (D50w (Vial) -) 25 gm IVPUSH PRN PRN PRN Reason: HYPOGLYCEMIA Divalproex Sodium (Depakote -) 250 mg PO DAILY [facility] Last Admin: 09/25/18 10:02 Dose: 250 mg Divalproex Sodium (Depakote -) 125 mg PO [facility] Last Admin: 09/24/18 21:25 Dose: 125 mg Docusate Sodium (Colace -) 100 mg PO [facility] Last Admin: 09/24/18 21:21 Dose: 100 mg Donepezil HCl (Aricept -) 10 mg PO DAILY [facility] Last Admin: 09/25/18 10:03 Dose: 10 mg Enoxaparin Sodium (Lovenox -) 30 mg SQ DAILY [facility] Last Admin: 09/25/18 10:03 Dose: 30 mg Furosemide (Lasix Injection -) 40 mg IVPUSH BID@0600,1400 [facility] Last Admin: 09/25/18 05:21 Dose: 40 mg Hydralazine HCl (Apresoline -) 50 mg PO TID [facility] Last Admin: 09/25/18 05:21 Dose: 50 mg Insulin Aspart (Novolog Vial Sliding Scale -) 1 vial SQ TIDAC [facility]; Protocol Last Admin: 09/25/18 06:25 Dose: Not Given Insulin Detemir (Levemir Vial) 10 units SQ AM [facility] Last Admin: 09/25/18 06:29 Dose: 10 units Labetalol HCl (Normodyne -) 400 mg PO TID [facility] Last Admin: 09/25/18 05:21 Dose: 400 mg Levothyroxine Sodium (Synthroid -) 25 mcg PO DAILY@0700 [facility] Last Admin: 09/25/18 06:29 Dose: 25 mcg Mirtazapine (Remeron -) 30 mg PO HS [facility] Last Admin: 09/24/18 21:20 Dose: 30 mg Nifedipine (Procardia Xl -) 60 mg PO BID [facility] Last Admin: 09/25/18 10:04 Dose: Not Given Non-Formulary Medication (Olmesartan Medoxomil) 40 mg PO DAILY [facility] Last Admin: 09/25/18 10:11 Dose: 40 mg Pancrelipase (Creon Dr 36,000 Units Capsule) 1 cap PO TIDCM [facility] Last Admin: 09/25/18 08:37 Dose: 1 cap Pantoprazole Sodium (Protonix -) 40 mg PO DAILY [facility] Last Admin: 09/25/18 10:03 Dose: 40 mg Potassium Chloride (K-Dur -) 20 meq PO DAILY [facility] Last Admin: 09/25/18 10:03 Dose: 20 meq Tramadol HCl (Ultram -) 50 mg PO TID PRN PRN Reason: PAIN LEVEL 6-10 - Objective Vital Signs: Vital Signs Temperature 98.6 F 09/25/18 06:00 Pulse Rate 58 L 09/25/18 06:00 Respiratory Rate 18 09/25/18 06:00 Blood Pressure 176/61 H 09/25/18 06:00 O2 Sat by Pulse Oximetry (%) 99 09/25/18 09:00 Constitutional: Yes: Well Nourished, No Distress, Calm Cardiovascular: Yes: Regular Rate and Rhythm Respiratory: Yes: Regular Gastrointestinal: Yes: WNL, Normal Bowel Sounds, Soft Musculoskeletal: Yes: Muscle Weakness Extremities: Yes: WNL Edema: Yes Edema: LLE: 1+, RLE: 1+ Peripheral Pulses WNL: Yes Neurological: Yes: Alert, Oriented Psychiatric: Yes: Alert, Oriented Labs: CBC, BMP 09/24/18 05:10 09/24/18 05:10 Problem List - Problems (1) JASPER (acute kidney injury) Assessment/Plan: -nephrology consult -monitor trend Code(s): N17.9 - ACUTE KIDNEY FAILURE, UNSPECIFIED (2) Acute on chronic diastolic (congestive) heart failure Assessment/Plan: -Cardiology consult -Tele monitoring -mildly bradycardiac on tele -Diruesis -low sodium diabetic diet -daily weights Code(s): I50.33 - ACUTE ON CHRONIC DIASTOLIC (CONGESTIVE) HEART FAILURE (3) Anemia Assessment/Plan: -chronic -hematology consult -likely dilutional -[place] transfusion for Hg<7.0 to avoid fluid overload -check B12, Iron, Thyroid, Folate and stool OB Code(s): D64.9 - ANEMIA, UNSPECIFIED (4) Diabetes Assessment/Plan: -BGM AC HS -Diabetic low sodium diet -Decrease levemir to 10 U QAM due to hypoglycemia -ISS -D50PRN for symptomatic hypoglycemia below 70 mg/dl Code(s): E11.9 - TYPE 2 DIABETES MELLITUS WITHOUT COMPLICATIONS (5) HTN (hypertension) Assessment/Plan: -Cardiology consult -Tele monitoring -mildly bradycardiac on tele -Diruesis -low sodium diabetic diet -Needs Renal biopsy outpatient Code(s): I10 - ESSENTIAL (PRIMARY) HYPERTENSION (6) SOB (shortness of breath) Assessment/Plan: -Pulmonary consult -2/2 to CHF -Bronchodilators for immediate relief -Nasal O2 PRN, keep Spo2 >90% -diuresis Code(s): R06.02 - SHORTNESS OF BREATH Assessment/Plan see problem list
[2018-09-25] MEDS ORDERED: MIRTAZAPINE 15 MG TABLET (FP) ONE (19:54)
[2018-09-25] MEDS: ALPRAZolam 0.25 MG TABLET PO PRN (20:31)
[2018-09-25] MEDS: ATORVASTATIN CA 20 MG TABLET (FP) PO SCH (21:00)
[2018-09-25] MEDS: MIRTAZAPINE 30 MG TABLET (FP) PO SCH (21:00)
[2018-09-25] MEDS: DOCUSATE SODIUM 100 MG CAPSULE (FP) PO SCH (21:00)
[2018-09-25] MEDS: DIVALPROEX SODIUM 125 MG TABLET E.C. PO SCH (23:06)
[2018-09-26] MEDS: LABETALOL HCL 200 MG TABLET (FP) PO SCH ×3 (05:20→22:05)
[2018-09-26] MEDS: hydrALAZINE HCL 50 MG TABLET (FP) PO SCH ×2 (05:20→22:04)
[2018-09-26] MEDS: FUROSEMIDE 40 MG/4 ML INJECTABLE VIAL IVPUSH SCH ×2 (05:20→13:34)
[2018-09-26] MEDS: CARBIDOPA/LEVODOPA 25/100 TABLET (FP) PO SCH ×3 (05:21→22:06)
[2018-09-26 06:02] LABS: ALBUMIN 2.6 g/dl (3.4-5.0); ALK PHOS 96 U/L (45-117); ANION GAP 3 MMOL/L (8-16); BILIRUBIN,TOTAL 0.4 mg/dL (0.2-1); BLOOD UREA NITROGEN 31.9 mg/dL (7-18); CALCIUM 8.4 mg/dL (8.5-10.1); CHLORIDE 106 mmol/L (98-107); CO2 35 mmol/L (21-32); CREATININE 1.7 mg/dL (0.55-1.3); GLUCOSE,RANDOM 137 mg/dL (74-106); POTASSIUM 4.3 mmol/L (3.5-5.1); SGOT/AST 9 U/L (15-37); SGPT/ALT < 6 U/L (13-61); SODIUM 144 mmol/L (136-145); TOT PROT 5.9 g/dl (6.4-8.2)
[2018-09-26] MEDS: INSULIN SLIDING SCALE (NOVOLOG) 1 VIAL SQ SCH ×3 (06:14→13:37)
[2018-09-26] MEDS: INSULIN (LEVEMIR) 100 UNITS/ML UNITS SQ SCH (06:18)
[2018-09-26] MEDS: LEVOTHYROXINE NA 25 MCG TABLET (FP) PO SCH (06:18)
[2018-09-26 06:28] LABS: BASO % 0.9 % (0-2.0); EOS % 5.6 % (0-4.5); HEMATOCRIT 23.9 % (32.4-45.2); HEMOGLOBIN 7.9 GM/dL (10.7-15.3); LYMPH % 17.8 % (8-40); MCH 26.6 pg (25.7-33.7); MEAN CELL VOLUME 80.5 fl (80-96); MEAN PLT VOLUME 7.4 fl (7.5-11.1); MONO % 13.5 % (3.8-10.2); NEUT % 62.2 % (42.8-82.8); PLATELET COUNT 391 K/MM3 (134-434); RBC 2.97 M/mm3 (3.60-5.2); RDW 18.1 % (11.6-15.6); WHITE BLOOD COUNT 5.5 K/mm3 (4.0-10.0)
[2018-09-26] MEDS: ALBUTEROL SO4 2.5/IPRATROPIUM 0.5 INH SOL 3 ML VIAL.NEB. NEB SCH ×4 (07:30→20:53)
--- NOTE | 2018-09-26 08:08 | PN ---
Progress Note, Physician - Current Medication List Current Medications: Active Medications Acetaminophen (Tylenol -) 650 mg PO Q4H PRN PRN Reason: PAIN LEVEL 1-5 Albuterol/Ipratropium (Duoneb -) 1 amp NEB RQID [facility] Last Admin: 09/25/18 20:05 Dose: 1 amp Alprazolam (Xanax -) 0.5 mg PO Q12H PRN PRN Reason: ANXIETY Last Admin: 09/25/18 20:31 Dose: 0.5 mg Aspirin (Ecotrin -) 81 mg PO DAILY [facility] Last Admin: 09/25/18 10:03 Dose: 81 mg Atorvastatin Calcium (Lipitor -) 20 mg PO HS [facility] Last Admin: 09/25/18 21:00 Dose: 20 mg Bupropion HCl (Wellbutrin Xl -) 150 mg PO DAILY [facility] Last Admin: 09/25/18 10:03 Dose: 150 mg Carbidopa/Levodopa (Sinemet 25/100 -) 1 each PO TID [facility] Last Admin: 09/26/18 05:21 Dose: 1 each Dextrose (D50w (Vial) -) 25 gm IVPUSH PRN PRN PRN Reason: HYPOGLYCEMIA Divalproex Sodium (Depakote -) 250 mg PO DAILY [facility] Last Admin: 09/25/18 10:02 Dose: 250 mg Divalproex Sodium (Depakote -) 125 mg PO HS [facility] Last Admin: 09/25/18 23:06 Dose: 125 mg Docusate Sodium (Colace -) 100 mg PO HS [facility] Last Admin: 09/25/18 21:00 Dose: 100 mg Donepezil HCl (Aricept -) 10 mg PO DAILY [facility] Last Admin: 09/25/18 10:03 Dose: 10 mg Enoxaparin Sodium (Lovenox -) 30 mg SQ DAILY [facility] Last Admin: 09/25/18 10:03 Dose: 30 mg Hydralazine HCl (Apresoline -) 50 mg PO TID [facility] Last Admin: 09/26/18 05:20 Dose: 50 mg Insulin Aspart (Novolog Vial Sliding Scale -) 1 vial SQ TIDAC [facility]; Protocol Last Admin: 09/26/18 06:14 Dose: Not Given Insulin Detemir (Levemir Vial) 10 units SQ AM [facility] Last Admin: 09/26/18 06:18 Dose: 10 units Labetalol HCl (Normodyne -) 400 mg PO TID [facility] Last Admin: 09/26/18 05:20 Dose: 400 mg Levothyroxine Sodium (Synthroid -) 25 mcg PO DAILY@0700 [facility] Last Admin: 09/26/18 06:18 Dose: 25 mcg Mirtazapine (Remeron -) 30 mg PO HS [facility] Nifedipine (Procardia Xl -) 60 mg PO BID [facility] Last Admin: 09/25/18 21:41 Dose: Not Given Non-Formulary Medication (Olmesartan Medoxomil) 40 mg PO DAILY [facility] Last Admin: 09/25/18 10:11 Dose: 40 mg Pancrelipase (Creon Dr 36,000 Units Capsule) 1 cap PO TIDCM [facility] Last Admin: 09/25/18 17:59 Dose: 1 cap Pantoprazole Sodium (Protonix -) 40 mg PO DAILY [facility] Last Admin: 09/25/18 10:03 Dose: 40 mg Potassium Chloride (K-Dur -) 20 meq PO DAILY [facility] Last Admin: 09/25/18 10:03 Dose: 20 meq Tramadol HCl (Ultram -) 50 mg PO TID PRN PRN Reason: PAIN LEVEL 6-10 - Objective Vital Signs: Vital Signs Temperature 98.6 F 09/26/18 05:53 Pulse Rate 54 L 09/26/18 05:53 Respiratory Rate 11 09/26/18 05:53 Blood Pressure 181/65 H 09/26/18 05:53 O2 Sat by Pulse Oximetry (%) 98 09/25/18 21:00 Cardiovascular: Yes: Bradycardia, S1, S2 Respiratory: Yes: On Nasal O2, Rales Gastrointestinal: Yes: Normal Bowel Sounds, Soft. No: Tenderness Labs: CBC, BMP 09/26/18 05:05 09/26/18 05:05 Assessment/Plan Problems (1) JASPER (acute kidney injury) Assessment/Plan: -nephrology consult -monitor trend Code(s): N17.9 - ACUTE KIDNEY FAILURE, UNSPECIFIED (2) Acute on chronic diastolic (congestive) heart failure Assessment/Plan: -Cardiology consult -Lasix 80 iv bid -Tele monitoring -mildly bradycardiac on tele -Diruesis -low sodium diabetic diet -daily weights Code(s): I50.33 - ACUTE ON CHRONIC DIASTOLIC (CONGESTIVE) HEART FAILURE (3) Anemia Assessment/Plan: -chronic -hematology consult -transfuse 1 unit -check B12, Iron, Thyroid, Folate and stool OB Code(s): D64.9 - ANEMIA, UNSPECIFIED (4) Diabetes Assessment/Plan: -BGM AC HS -Diabetic low sodium diet -Decrease levemir to 10 U QAM due to hypoglycemia -ISS -D50PRN for symptomatic hypoglycemia below 70 mg/dl Code(s): E11.9 - TYPE 2 DIABETES MELLITUS WITHOUT COMPLICATIONS (5) HTN (hypertension) Assessment/Plan: -Cardiology consult -Tele monitoring -mildly bradycardiac on tele -Diruesis -low sodium diabetic diet -Needs Renal biopsy outpatient Code(s): I10 - ESSENTIAL (PRIMARY) HYPERTENSION (6) SOB (shortness of breath) Assessment/Plan: -Pulmonary consult -2/2 to CHF -Bronchodilators for immediate relief -Nasal O2 PRN, keep Spo2 >90% -diuresis Code(s): R06.02 - SHORTNESS OF BREATH
[2018-09-26] MEDS ORDERED: PT OWN MED DRAWER 7, Y5N ONE (08:46)
[2018-09-26] MEDS: LIPASE/PROTEASE/AMYLASE 36,000 UNIT CAPSULE PO SCH ×3 (09:35→17:37)
[2018-09-26] MEDS: ENOXAPARIN NA (PORCINE) 30 MG/0.3 ML DISP.SYRIN SQ SCH (09:35)
[2018-09-26] MEDS: DIVALPROEX SODIUM 250 MG TABLET E.C. PO SCH (09:36)
[2018-09-26] MEDS: POTASSIUM CHLORIDE TABS 20 MEQ TABLET.ER (FP) PO SCH (09:36)
[2018-09-26] MEDS: PANTOPRAZOLE 40 MG TABLET (FP) PO SCH (09:36)
[2018-09-26] MEDS: DONEPEZIL HCL 10 MG TABLET (FP) PO SCH (09:36)
[2018-09-26] MEDS: ASPIRIN COATED 81 MG TABLET.EC PO SCH (09:36)
[2018-09-26] MEDS: NIFEdipine E.R 60 MG TABLET (UD) PO SCH ×2 (09:37→22:04)
--- NOTE | 2018-09-26 11:12 | PN ---
Progress Note, Physician History of Present Illness: Pt seen and examined at bedside. She is awake and alert. She complains of lower ext edema. - Current Medication List Current Medications: Active Medications Acetaminophen (Tylenol -) 650 mg PO Q4H PRN PRN Reason: PAIN LEVEL 1-5 Albuterol/Ipratropium (Duoneb -) 1 amp NEB RQID [facility] Last Admin: 09/26/18 07:30 Dose: 1 amp Alprazolam (Xanax -) 0.5 mg PO Q12H PRN PRN Reason: ANXIETY Last Admin: 09/25/18 20:31 Dose: 0.5 mg Aspirin (Ecotrin -) 81 mg PO DAILY [facility] Last Admin: 09/26/18 09:36 Dose: 81 mg Atorvastatin Calcium (Lipitor -) 20 mg PO HS [facility] Last Admin: 09/25/18 21:00 Dose: 20 mg Bupropion HCl (Wellbutrin Xl -) 150 mg PO DAILY [facility] Last Admin: 09/25/18 10:03 Dose: 150 mg Carbidopa/Levodopa (Sinemet 25/100 -) 1 each PO TID [facility] Last Admin: 09/26/18 05:21 Dose: 1 each Dextrose (D50w (Vial) -) 25 gm IVPUSH PRN PRN PRN Reason: HYPOGLYCEMIA Divalproex Sodium (Depakote -) 250 mg PO DAILY [facility] Last Admin: 09/26/18 09:36 Dose: 250 mg Divalproex Sodium (Depakote -) 125 mg PO HS [facility] Last Admin: 09/25/18 23:06 Dose: 125 mg Docusate Sodium (Colace -) 100 mg PO HS [facility] Last Admin: 09/25/18 21:00 Dose: 100 mg Donepezil HCl (Aricept -) 10 mg PO DAILY [facility] Last Admin: 09/26/18 09:36 Dose: 10 mg Enoxaparin Sodium (Lovenox -) 30 mg SQ DAILY [facility] Last Admin: 09/26/18 09:35 Dose: 30 mg Furosemide (Lasix Injection -) 80 mg IVPUSH BID@0600,1400 [facility] Hydralazine HCl (Apresoline -) 50 mg PO TID [facility] Last Admin: 09/26/18 05:20 Dose: 50 mg Insulin Aspart (Novolog Vial Sliding Scale -) 1 vial SQ TIDAC [facility]; Protocol Last Admin: 09/26/18 06:14 Dose: Not Given Insulin Detemir (Levemir Vial) 10 units SQ AM [facility] Last Admin: 09/26/18 06:18 Dose: 10 units Labetalol HCl (Normodyne -) 400 mg PO TID [facility] Last Admin: 09/26/18 05:20 Dose: 400 mg Levothyroxine Sodium (Synthroid -) 25 mcg PO DAILY@0700 [facility] Last Admin: 09/26/18 06:18 Dose: 25 mcg Mirtazapine (Remeron -) 30 mg PO HS [facility] Nifedipine (Procardia Xl -) 60 mg PO BID [facility] Last Admin: 09/26/18 09:37 Dose: 60 mg Non-Formulary Medication (Olmesartan Medoxomil) 40 mg PO DAILY [facility] Last Admin: 09/25/18 10:11 Dose: 40 mg Pancrelipase (Creon Dr 36,000 Units Capsule) 1 cap PO TIDCM [facility] Last Admin: 09/26/18 09:35 Dose: 1 cap Pantoprazole Sodium (Protonix -) 40 mg PO DAILY [facility] Last Admin: 09/26/18 09:36 Dose: 40 mg Potassium Chloride (K-Dur -) 20 meq PO DAILY [facility] Last Admin: 09/26/18 09:36 Dose: 20 meq Tramadol HCl (Ultram -) 50 mg PO TID PRN PRN Reason: PAIN LEVEL 6-10 - Objective Vital Signs: Vital Signs Temperature 98.6 F 09/26/18 05:53 Pulse Rate 54 L 09/26/18 05:53 Respiratory Rate 11 09/26/18 05:53 Blood Pressure 181/65 H 09/26/18 05:53 O2 Sat by Pulse Oximetry (%) 98 09/25/18 21:00 Constitutional: Yes: Calm Eyes: Yes: Conjunctiva Clear HENT: Yes: Atraumatic Cardiovascular: Yes: S1, S2 Respiratory: Yes: On Nasal O2 Gastrointestinal: Yes: Soft Genitourinary: Yes: WNL Musculoskeletal: Yes: WNL Edema: Yes Edema: LLE: 2+, RLE: 2+ Neurological: Yes: Oriented Psychiatric: Yes: Oriented Labs: CBC, BMP 09/26/18 05:05 09/26/18 05:05 Assessment/Plan Current Medications Generic Name Dose Route Start Last Admin Trade Name Freq PRN Reason Stop Dose Admin Acetaminophen 650 mg 09/23/18 15:59 Tylenol - PO Q4H PRN PAIN LEVEL 1-5 Albuterol/Ipratropium 1 amp 09/23/18 16:00 09/26/18 07:30 Duoneb - NEB 1 amp RQID JOYCE Administration Alprazolam 0.5 mg 09/24/18 18:22 09/25/18 20:31 Xanax - PO 0.5 mg Q12H PRN Administration ANXIETY Aspirin 81 mg 09/24/18 10:00 09/26/18 09:36 Ecotrin - PO 81 mg DAILY [facility] Administration Atorvastatin Calcium 20 mg 09/23/18 22:00 09/25/18 21:00 Lipitor - PO 20 mg HS JOYCE Administration Bupropion HCl 150 mg 09/24/18 10:00 09/25/18 10:03 Wellbutrin Xl - PO 150 mg DAILY [facility] Administration Carbidopa/Levodopa 1 each 09/23/18 16:00 09/26/18 05:21 Sinemet 25/100 - PO 1 each TID [facility] Administration Dextrose 25 gm 09/24/18 09:55 D50w (Vial) - IVPUSH PRN PRN HYPOGLYCEMIA Divalproex Sodium 250 mg 09/24/18 10:00 09/26/18 09:36 Depakote - PO 250 mg DAILY [facility] Administration Divalproex Sodium 125 mg 09/23/18 22:00 09/25/18 23:06 Depakote - PO 125 mg HS [facility] Administration Docusate Sodium 100 mg 09/23/18 22:00 09/25/18 21:00 Colace - PO 100 mg HS [facility] Administration Donepezil HCl 10 mg 09/24/18 10:00 09/26/18 09:36 Aricept - PO 10 mg DAILY [facility] Administration Enoxaparin Sodium 30 mg 09/24/18 10:00 09/26/18 09:35 Lovenox - SQ 30 mg DAILY [facility] Administration Furosemide 80 mg 09/26/18 14:00 Lasix Injection - IVPUSH BID@0600,1400 [facility] Hydralazine HCl 50 mg 09/23/18 16:00 09/26/18 05:20 Apresoline - PO 50 mg TID [facility] Administration Insulin Aspart 1 vial 09/23/18 16:30 09/26/18 06:14 Novolog Vial Sliding Scale - SQ Not Given TIDAC [facility] Protocol Insulin Detemir 10 units 09/24/18 07:00 09/26/18 06:18 Levemir Vial SQ 10 units AM [facility] Administration Labetalol HCl 400 mg 09/23/18 16:00 09/26/18 05:20 Normodyne - PO 400 mg TID [facility] Administration Levothyroxine Sodium 25 mcg 09/24/18 09:50 09/26/18 06:18 Synthroid - PO 25 mcg DAILY@0700 [facility] Administration Mirtazapine 30 mg 09/26/18 22:00 Remeron - PO HS [facility] Nifedipine 60 mg 09/24/18 13:37 09/26/18 09:37 Procardia Xl - PO 60 mg BID [facility] Administration Non-Formulary Medication 40 mg 09/24/18 10:00 09/25/18 10:11 Olmesartan Medoxomil PO 40 mg DAILY [facility] Administration Pancrelipase 1 cap 09/23/18 17:30 09/26/18 09:[address] 36,000 Units Capsule PO 1 cap TIDCM [facility] Administration Pantoprazole Sodium 40 mg 09/24/18 10:00 09/26/18 09:36 Protonix - PO 40 mg DAILY [facility] Administration Potassium Chloride 20 meq 09/24/18 10:00 09/26/18 09:36 K-Dur - PO 20 meq DAILY [facility] Administration Tramadol HCl 50 mg 09/23/18 15:50 Ultram - PO TID PRN PAIN LEVEL 6-10 Laboratory Tests 10/10/15 05/05/18 07/29/18 14:25 06:30 17:15 Urine Protein Urine Blood Ur Leukocyte Esterase CARMEN M-Jacob Not observed DAVID Screen Negative c-ANCA <1:20 Proteinase 3 (PR3) <3.5 SS-A/Ro Antibody <0.2 p-ANCA <1:20 Atypical p-ANCA <1:20 SS-B/La Antibody <0.2 Myeloperoxidase Ab <9.0 Double Strand DNA Ab <1 09/23/18 14:53 Urine Protein 2+ H Urine Blood Negative Ur Leukocyte Esterase 1+ H CARMEN M-Jacob DAVID Screen c-ANCA Proteinase 3 (PR3) SS-A/Ro Antibody p-ANCA Atypical p-ANCA SS-B/La Antibody Myeloperoxidase Ab Double Strand DNA Ab Impression 1. JASPER/CKD 2. fluid overload 3. HLD 4. shortness of breath 5. HTN 6. DM 7. proteinuria Impression - previous serologic workup negative - repeat ua - check prt to seating and mobility technologist ration - cont with arb - increase hydralazine dose - cardio follow up - cont diuretics - discussed kidney biopsy with pt and daughter on previous admission and they wanted to hold off. She has not followed in the office since.
[2018-09-26] MEDS ORDERED: hydrALAZINE HCL 50 MG TABLET (FP) PO SCH (11:13)
[2018-09-26] MEDS: PATIENT'S OWN MEDICATION (NON-FORMULARY) (Olmesartan Medoxomil 40 MG) PO SCH (11:28)
--- NOTE | 2018-09-26 12:20 | PN ---
Progress Note (short form) - Note Progress Note: PULMONARY States breathing better. No chest pain. Does not want blood transfusion at this time. Vital Signs Period Temp Pulse Resp BP Sys/East Pulse Ox Last 24 Hr 97.9 F-98.6 F 51-59 11-18 147-209/48-77 98-98 Intake & Output 09/23/18 09/24/18 09/25/18 09/26/18 23:59 23:59 23:59 23:59 Intake Total 350 520 440 120 Output Total 300 400 Balance 50 120 440 120 Weight 64.501 kg 67.222 kg 64.501 kg 63.6 kg Gen: mildly tachypneic at rest Heart: RRR Lung: decreased breath sounds at the bases Abd: soft, nontender Ext: + edema CBC, BMP 09/26/18 05:05 09/26/18 05:05 Active Medications Acetaminophen (Tylenol -) 650 mg PO Q4H PRN PRN Reason: PAIN LEVEL 1-5 Albuterol/Ipratropium (Duoneb -) 1 amp NEB RQID [facility] Last Admin: 09/26/18 11:40 Dose: 1 amp Alprazolam (Xanax -) 0.5 mg PO Q12H PRN PRN Reason: ANXIETY Last Admin: 09/25/18 20:31 Dose: 0.5 mg Aspirin (Ecotrin -) 81 mg PO DAILY [facility] Last Admin: 09/26/18 09:36 Dose: 81 mg Atorvastatin Calcium (Lipitor -) 20 mg PO HS [facility] Last Admin: 09/25/18 21:00 Dose: 20 mg Bupropion HCl (Wellbutrin Xl -) 150 mg PO DAILY [facility] Last Admin: 09/26/18 11:28 Dose: 150 mg Carbidopa/Levodopa (Sinemet 25/100 -) 1 each PO TID [facility] Last Admin: 09/26/18 05:21 Dose: 1 each Dextrose (D50w (Vial) -) 25 gm IVPUSH PRN PRN PRN Reason: HYPOGLYCEMIA Divalproex Sodium (Depakote -) 250 mg PO DAILY [facility] Last Admin: 09/26/18 09:36 Dose: 250 mg Divalproex Sodium (Depakote -) 125 mg PO HS [facility] Last Admin: 09/25/18 23:06 Dose: 125 mg Docusate Sodium (Colace -) 100 mg PO HS [facility] Last Admin: 09/25/18 21:00 Dose: 100 mg Donepezil HCl (Aricept -) 10 mg PO DAILY [facility] Last Admin: 09/26/18 09:36 Dose: 10 mg Enoxaparin Sodium (Lovenox -) 30 mg SQ DAILY [facility] Last Admin: 09/26/18 09:35 Dose: 30 mg Furosemide (Lasix Injection -) 80 mg IVPUSH BID@0600,1400 [facility] Hydralazine HCl (Apresoline -) 100 mg PO TID [facility] Insulin Aspart (Novolog Vial Sliding Scale -) 1 vial SQ TIDAC [facility]; Protocol Last Admin: 09/26/18 06:14 Dose: Not Given Insulin Detemir (Levemir Vial) 10 units SQ AM [facility] Last Admin: 09/26/18 06:18 Dose: 10 units Labetalol HCl (Normodyne -) 400 mg PO TID [facility] Last Admin: 09/26/18 05:20 Dose: 400 mg Levothyroxine Sodium (Synthroid -) 25 mcg PO DAILY@0700 [facility] Last Admin: 09/26/18 06:18 Dose: 25 mcg Mirtazapine (Remeron -) 30 mg PO HS [facility] Nifedipine (Procardia Xl -) 60 mg PO BID [facility] Last Admin: 09/26/18 09:37 Dose: 60 mg Non-Formulary Medication (Olmesartan Medoxomil) 40 mg PO DAILY [facility] Last Admin: 09/26/18 11:28 Dose: 40 mg Pancrelipase (Creon Dr 36,000 Units Capsule) 1 cap PO TIDCM [facility] Last Admin: 09/26/18 09:35 Dose: 1 cap Pantoprazole Sodium (Protonix -) 40 mg PO DAILY [facility] Last Admin: 09/26/18 09:36 Dose: 40 mg Potassium Chloride (K-Dur -) 20 meq PO DAILY [facility] Last Admin: 09/26/18 09:36 Dose: 20 meq Tramadol HCl (Ultram -) 50 mg PO TID PRN PRN Reason: PAIN LEVEL 6-10 A/P Acute on Chronic Diastolic Heart Failure Poorly Controlled HTN Pulmonary HTN Acute on Chronic Renal Failure DM Hyperlipidemia Parkinsons Anemia - continue lasix - monitor urine output, creatinine - daily weights - O2 to keep Spo2 >90% - beta curtis - BP control - DVT prophylaxis Problem List - Problems (1) Acute on chronic diastolic (congestive) heart failure Code(s): I50.33 - ACUTE ON CHRONIC DIASTOLIC (CONGESTIVE) HEART FAILURE (2) CKD (chronic kidney disease) Code(s): N18.9 - CHRONIC KIDNEY DISEASE, UNSPECIFIED (3) Diabetes Code(s): E11.9 - TYPE 2 DIABETES MELLITUS WITHOUT COMPLICATIONS (4) HLD (hyperlipidemia) Code(s): E78.5 - HYPERLIPIDEMIA, UNSPECIFIED (5) HTN (hypertension) Code(s): I10 - ESSENTIAL (PRIMARY) HYPERTENSION (6) Pleural effusion Code(s): J90 - PLEURAL EFFUSION, NOT ELSEWHERE CLASSIFIED
--- NOTE | 2018-09-26 15:36 | PN ---
Physical Exam: HEME ONC SUBJECTIVE: Patient seen and examined. No acute events overnight. Patient offers no new complaints. Refused 1 UNIT PRBC OBJECTIVE: Vital Signs Period Temp Pulse Resp BP Sys/Esat Pulse Ox Last 24 Hr 97.9 F-98.6 F 51-59 11-18 147-209/49-77 98-98 GENERAL: The patient is awake, alert, and fully oriented, in no acute distress. HEAD: Normal with no signs of trauma. EYES: conjunctiva clear. No ptosis. ENT: oropharynx clear without exudates, moist mucous membranes. NECK: supple. LUNGS: decreased bs at the bases HEART: RRR, no murmurs appreciated ABDOMEN: Soft, nontender, nondistended, normoactive bowel sounds EXTREMITIES: 2+ pulses, +edema b/l Laboratory Results - last 24 hr 09/25/18 09/25/18 09/26/18 17:01 20:26 05:05 WBC 5.5 RBC 2.97 L Hgb 7.9 L Hct 23.9 L MCV 80.5 MCH 26.6 MCHC 33.0 RDW 18.1 H Plt Count 391 MPV 7.4 L Absolute Neuts (auto) 3.4 Neutrophils % 62.2 Lymphocytes % 17.8 D Monocytes % 13.5 H Eosinophils % 5.6 H Basophils % 0.9 Nucleated RBC % 0 Sodium Potassium Chloride Carbon Dioxide Anion Gap BUN Creatinine Est GFR (CKD-EPI)AfAm Est GFR (CKD-EPI)NonAf POC Glucometer 190 169 Random Glucose Calcium Total Bilirubin AST ALT Alkaline Phosphatase Total Protein Albumin Blood Type Antibody Screen Crossmatch 09/26/18 09/26/18 09/26/18 05:05 05:15 08:38 WBC RBC Hgb Hct MCV MCH MCHC RDW Plt Count MPV Absolute Neuts (auto) Neutrophils % Lymphocytes % Monocytes % Eosinophils % Basophils % Nucleated RBC % Sodium 144 Potassium 4.3 Chloride 106 Carbon Dioxide 35 H Anion Gap 3 L BUN 31.9 H Creatinine 1.7 H Est GFR (CKD-EPI)AfAm 33.37 Est GFR (CKD-EPI)NonAf 28.79 POC Glucometer 128 Random Glucose 137 H Calcium 8.4 L Total Bilirubin 0.4 AST 9 L ALT < 6 L Alkaline Phosphatase 96 Total Protein 5.9 L Albumin 2.6 L Blood Type A POSITIVE Antibody Screen Negative Crossmatch See Detail 09/26/18 11:44 WBC RBC Hgb Hct MCV MCH MCHC RDW Plt Count MPV Absolute Neuts (auto) Neutrophils % Lymphocytes % Monocytes % Eosinophils % Basophils % Nucleated RBC % Sodium Potassium Chloride Carbon Dioxide Anion Gap BUN Creatinine Est GFR (CKD-EPI)AfAm Est GFR (CKD-EPI)NonAf POC Glucometer 200 Random Glucose Calcium Total Bilirubin AST ALT Alkaline Phosphatase Total Protein Albumin Blood Type Antibody Screen Crossmatch Active Medications Generic Name Dose Route Start Last Admin Trade Name Freq PRN Reason Stop Dose Admin Acetaminophen 650 mg 09/23/18 15:59 Tylenol - PO Q4H PRN PAIN LEVEL 1-5 Albuterol/Ipratropium 1 amp 09/23/18 16:00 09/26/18 11:40 Duoneb - NEB 1 amp RQID JOYCE Administration Alprazolam 0.5 mg 09/24/18 18:22 09/25/18 20:31 Xanax - PO 0.5 mg Q12H PRN Administration ANXIETY Aspirin 81 mg 09/24/18 10:00 09/26/18 09:36 Ecotrin - PO 81 mg DAILY [facility] Administration Atorvastatin Calcium 20 mg 09/23/18 22:00 09/25/18 21:00 Lipitor - PO 20 mg HS [facility]YCE Administration Bupropion HCl 150 mg 09/24/18 10:00 09/26/18 11:28 Wellbutrin Xl - PO 150 mg DAILY [facility] Administration Carbidopa/Levodopa 1 each 09/23/18 16:00 09/26/18 13:29 Sinemet 25/100 - PO 1 each TID [facility] Administration Dextrose 25 gm 09/24/18 09:55 D50w (Vial) - IVPUSH PRN PRN HYPOGLYCEMIA Divalproex Sodium 250 mg 09/24/18 10:00 09/26/18 09:36 Depakote - PO 250 mg DAILY [facility] Administration Divalproex Sodium 125 mg 09/23/18 22:00 09/25/18 23:06 Depakote - PO 125 mg HS JOYCE Administration Docusate Sodium 100 mg 09/23/18 22:00 09/25/18 21:00 Colace - PO 100 mg HS [facility]YCE Administration Donepezil HCl 10 mg 09/24/18 10:00 09/26/18 09:36 Aricept - PO 10 mg DAILY [facility] Administration Enoxaparin Sodium 30 mg 09/24/18 10:00 09/26/18 09:35 Lovenox - SQ 30 mg DAILY [facility] Administration Furosemide 80 mg 09/26/18 14:00 09/26/18 13:34 Lasix Injection - IVPUSH 80 mg BID@0600,1400 [facility] Administration Hydralazine HCl 100 mg 09/26/18 11:13 09/26/18 13:34 Apresoline - PO 100 mg TID [facility] Administration Insulin Aspart 1 vial 09/23/18 16:30 09/26/18 13:37 Novolog Vial Sliding Scale - SQ 2 units TIDAC [facility] Administration Protocol Insulin Detemir 10 units 09/24/18 07:00 09/26/18 06:18 Levemir Vial SQ 10 units AM [facility] Administration Labetalol HCl 400 mg 09/23/18 16:00 09/26/18 13:42 Normodyne - PO 400 mg TID [facility] Administration Levothyroxine Sodium 25 mcg 09/24/18 09:50 09/26/18 06:18 Synthroid - PO 25 mcg DAILY@0700 [facility] Administration Mirtazapine 30 mg 09/26/18 22:00 Remeron - PO HS [facility] Nifedipine 60 mg 09/24/18 13:37 09/26/18 09:37 Procardia Xl - PO 60 mg BID [facility] Administration Non-Formulary Medication 40 mg 09/24/18 10:00 09/26/18 11:28 Olmesartan Medoxomil PO 40 mg DAILY [facility] Administration Pancrelipase 1 cap 09/23/18 17:30 09/26/18 13:28 Elaine Sweeney 36,000 Units Capsule PO 1 cap TIDCM [facility] Administration Pantoprazole Sodium 40 mg 09/24/18 10:00 09/26/18 09:36 Protonix - PO 40 mg DAILY [facility] Administration Potassium Chloride 20 meq 09/24/18 10:00 09/26/18 09:36 K-Dur - PO 20 meq DAILY [facility] Administration Tramadol HCl 50 mg 09/23/18 15:50 Ultram - PO TID PRN PAIN LEVEL 6-10 ASSESSMENT/PLAN: -Microcytic Anemia- Iron Def -Inflammatory Anemia (ACD) -CHF -JASPER -Refused 1 U PRBC -Iron 23, Iron Sat 9% -Will need Venofer 200mg every other day for 2 weeks. -Hgb Stable -transfuse for symptomatic anemia or Hgb < 7 Visit type - Emergency Visit Emergency Visit: Yes ED Registration Date: 09/23/18 Care time: The patient presented to the Emergency Department on the above date and was hospitalized for further evaluation of their emergent condition. - New Patient This patient is new to me today: No - Critical Care Critical Care patient: No ATTENDING PHYSICIAN STATEMENT I saw and evaluated the patient. I reviewed the resident's note and discussed the case with the resident. I agree with the resident's findings and plan as documented. SUBJECTIVE: OBJECTIVE: ASSESSMENT AND PLAN:
[2018-09-26] MEDS ORDERED: IRON SUCROSE INJECTION 200 MG in SODIUM CHLORIDE 90 ML IVPB ONE (16:39)
[2018-09-26] MEDS ORDERED: DEXTROSE 50%-WATER 25 GM/50 ML DISP.SYRIN ONE (17:56)
[2018-09-26 18:34] LABS: EPI CELLS 2.6 /HPF (0-5/HPF); HYALINE CASTS 2 /lpf (0-8); URINE APPEARANCE CLEAR; URINE BILIRUBIN NEGATIVE (NEGATIVE); URINE COLOR YELLOW; URINE GLUCOSE (UA) NEGATIVE (NEGATIVE); URINE KETONE NEGATIVE (NEGATIVE); URINE LEUK ESTERASE 1+ (NEGATIVE); URINE NITRITE NEGATIVE (NEGATIVE); URINE PROTEIN 2+ (NEGATIVE); URINE RBC 1 /hpf (0-4); URINE UROBILINOGEN 0.2 mg/dL (0.2-1.0); URINE WBC 8 /hpf (0-5)
[2018-09-26] MEDS ORDERED: DEXTROSE 50%-WATER - 25 GM/50 ML VIAL IVPUSH ONE (18:46)
[2018-09-26 18:50] LABS: RATIO URIN PROTEIN/URIN CREAT 1.27 MG/DL
[2018-09-26] MEDS ORDERED: hydrALAZINE HCL 25 MG TABLET (FP) PO SCH ×2 (22:00)
[2018-09-26] MEDS: MIRTAZAPINE 15 MG TABLET (FP) PO SCH (22:04)
[2018-09-26] MEDS: ATORVASTATIN CA 20 MG TABLET (FP) PO SCH (22:04)
[2018-09-26] MEDS: DOCUSATE SODIUM 100 MG CAPSULE (FP) PO SCH (22:04)
[2018-09-26] MEDS: DIVALPROEX SODIUM 125 MG TABLET E.C. PO SCH (22:05)
[2018-09-27] MEDS: LABETALOL HCL 200 MG TABLET (FP) PO SCH ×3 (05:48→21:51)
[2018-09-27] MEDS: LEVOTHYROXINE NA 25 MCG TABLET (FP) PO SCH (06:03)
[2018-09-27] MEDS: hydrALAZINE HCL 50 MG TABLET (FP) PO SCH ×4 (06:03→21:55)
[2018-09-27] MEDS: CARBIDOPA/LEVODOPA 25/100 TABLET (FP) PO SCH ×3 (06:03→21:52)
[2018-09-27] MEDS: INSULIN (LEVEMIR) 100 UNITS/ML UNITS SQ SCH (06:03)
[2018-09-27] MEDS: FUROSEMIDE 40 MG/4 ML INJECTABLE VIAL IVPUSH SCH ×2 (06:03→13:57)
[2018-09-27 06:51] LABS: BASO % 0.8 % (0-2.0); EOS % 4.8 % (0-4.5); HEMATOCRIT 23.4 % (32.4-45.2); HEMOGLOBIN 7.8 GM/dL (10.7-15.3); LYMPH % 12.4 % (8-40); MCH 26.9 pg (25.7-33.7); MCHC 33.5 g/dl (32.0-36.0); MEAN CELL VOLUME 80.4 fl (80-96); MEAN PLT VOLUME 7.4 fl (7.5-11.1); MONO % 12.5 % (3.8-10.2); NEUT % 69.5 % (42.8-82.8); PLATELET COUNT 396 K/MM3 (134-434); RBC 2.91 M/mm3 (3.60-5.2); RDW 18.1 % (11.6-15.6); WHITE BLOOD COUNT 6.2 K/mm3 (4.0-10.0)
[2018-09-27 07:39] LABS: ALBUMIN 2.7 g/dl (3.4-5.0); CALCIUM 8.6 mg/dL (8.5-10.1); POTASSIUM 4.6 mmol/L (3.5-5.1)
[2018-09-27 07:44] LABS: BILIRUBIN,TOTAL 0.4 mg/dL (0.2-1); BLOOD UREA NITROGEN 34.2 mg/dL (7-18); CREATININE 1.6 mg/dL (0.55-1.3); TOT PROT 5.9 g/dl (6.4-8.2)
[2018-09-27] MEDS: LIPASE/PROTEASE/AMYLASE 36,000 UNIT CAPSULE PO SCH ×3 (08:17→17:23)
[2018-09-27] MEDS: INSULIN SLIDING SCALE (NOVOLOG) 1 VIAL SQ SCH ×3 (08:17→17:30)
[2018-09-27] MEDS: NIFEdipine E.R 60 MG TABLET (UD) PO SCH ×3 (08:26→21:51)
[2018-09-27] MEDS: ALBUTEROL SO4 2.5/IPRATROPIUM 0.5 INH SOL 3 ML VIAL.NEB. NEB SCH ×4 (08:47→21:30)
[2018-09-27] MEDS: DONEPEZIL HCL 10 MG TABLET (FP) PO SCH (09:06)
[2018-09-27] MEDS: POTASSIUM CHLORIDE TABS 20 MEQ TABLET.ER (FP) PO SCH (09:06)
[2018-09-27] MEDS: ASPIRIN COATED 81 MG TABLET.EC PO SCH (09:06)
[2018-09-27] MEDS: DIVALPROEX SODIUM 250 MG TABLET E.C. PO SCH (09:06)
[2018-09-27] MEDS: ENOXAPARIN NA (PORCINE) 30 MG/0.3 ML DISP.SYRIN SQ SCH (09:06)
[2018-09-27] MEDS: PANTOPRAZOLE 40 MG TABLET (FP) PO SCH (09:06)
--- NOTE | 2018-09-27 12:10 | PN ---
Progress Note, Physician Chief Complaint: CHF exacerbation HTN Hypothyroidism Anemia History of Present Illness: NAD feels a little better wants to go home BP still labile, with drop in BP and HR yesterday - Current Medication List Current Medications: Active Medications Acetaminophen (Tylenol -) 650 mg PO Q4H PRN PRN Reason: PAIN LEVEL 1-5 Albuterol/Ipratropium (Duoneb -) 1 amp NEB RQID [facility] Last Admin: 09/27/18 11:22 Dose: 1 amp Alprazolam (Xanax -) 0.5 mg PO Q12H PRN PRN Reason: ANXIETY Last Admin: 09/25/18 20:31 Dose: 0.5 mg Aspirin (Ecotrin -) 81 mg PO DAILY [facility] Last Admin: 09/27/18 09:06 Dose: 81 mg Atorvastatin Calcium (Lipitor -) 20 mg PO HS [facility] Last Admin: 09/26/18 22:04 Dose: 20 mg Bupropion HCl (Wellbutrin Xl -) 150 mg PO DAILY [facility] Last Admin: 09/27/18 09:06 Dose: 150 mg Carbidopa/Levodopa (Sinemet 25/100 -) 1 each PO TID [facility] Last Admin: 09/27/18 06:03 Dose: 1 each Dextrose (D50w (Vial) -) 25 gm IVPUSH PRN PRN PRN Reason: HYPOGLYCEMIA Divalproex Sodium (Depakote -) 250 mg PO DAILY [facility] Last Admin: 09/27/18 09:06 Dose: 250 mg Divalproex Sodium (Depakote -) 125 mg PO [facility] Last Admin: 09/26/18 22:05 Dose: 125 mg Docusate Sodium (Colace -) 100 mg PO [facility] Last Admin: 09/26/18 22:04 Dose: 100 mg Donepezil HCl (Aricept -) 10 mg PO DAILY [facility] Last Admin: 09/27/18 09:06 Dose: 10 mg Enoxaparin Sodium (Lovenox -) 30 mg SQ DAILY [facility] Last Admin: 09/27/18 09:06 Dose: 30 mg Furosemide (Lasix Injection -) 80 mg IVPUSH BID@0600,1400 [facility] Last Admin: 09/27/18 06:03 Dose: 80 mg Hydralazine HCl (Apresoline -) 75 mg PO TID [facility] Last Admin: 09/27/18 06:03 Dose: 75 mg Insulin Aspart (Novolog Vial Sliding Scale -) 1 vial SQ TIDAC [facility]; Protocol Last Admin: 09/27/18 08:17 Dose: Not Given Insulin Detemir (Levemir Vial) 10 units SQ AM [facility] Last Admin: 09/27/18 06:03 Dose: 10 units Labetalol HCl (Normodyne -) 400 mg PO TID [facility] Last Admin: 09/27/18 05:48 Dose: Not Given Levothyroxine Sodium (Synthroid -) 25 mcg PO DAILY@0700 [facility] Last Admin: 09/27/18 06:03 Dose: 25 mcg Mirtazapine (Remeron -) 30 mg PO HS [facility] Last Admin: 09/26/18 22:04 Dose: 30 mg Nifedipine (Procardia Xl -) 60 mg PO BID [facility] Last Admin: 09/27/18 09:08 Dose: Not Given Non-Formulary Medication (Olmesartan Medoxomil) 40 mg PO DAILY [facility] Last Admin: 09/26/18 11:28 Dose: 40 mg Pancrelipase (Creon Dr 36,000 Units Capsule) 1 cap PO TIDCM [facility] Last Admin: 09/27/18 12:05 Dose: 1 cap Pantoprazole Sodium (Protonix -) 40 mg PO DAILY [facility] Last Admin: 09/27/18 09:06 Dose: 40 mg Potassium Chloride (K-Dur -) 20 meq PO DAILY [facility] Last Admin: 09/27/18 09:06 Dose: 20 meq Tramadol HCl (Ultram -) 50 mg PO TID PRN PRN Reason: PAIN LEVEL 6-10 - Objective Vital Signs: Vital Signs Temperature 98.6 F 09/27/18 08:22 Pulse Rate 60 09/27/18 10:00 Respiratory Rate 18 09/27/18 10:00 Blood Pressure 137/48 L 09/27/18 10:00 O2 Sat by Pulse Oximetry (%) 98 09/27/18 08:30 Constitutional: Yes: Well Nourished, No Distress, Calm Cardiovascular: Yes: Regular Rate and Rhythm Respiratory: Yes: Regular Gastrointestinal: Yes: Normal Bowel Sounds, Soft Genitourinary: Yes: Incontinence Musculoskeletal: Yes: Muscle Weakness Extremities: Yes: WNL Edema: Yes Edema: LLE: 1+, RLE: 1+ Peripheral Pulses WNL: Yes Neurological: Yes: Alert, Oriented Psychiatric: Yes: Alert, Oriented Labs: CBC, BMP 09/27/18 05:35 09/27/18 05:35 Problem List - Problems (1) JASPER (acute kidney injury) Assessment/Plan: -nephrology consult -monitor trend Code(s): N17.9 - ACUTE KIDNEY FAILURE, UNSPECIFIED (2) Acute on chronic diastolic (congestive) heart failure Assessment/Plan: -Cardiology consult -Tele monitoring -mildly bradycardiac on tele-improved from yesterday -Diruesis-furosemide 40 mg IVP BID -low sodium diabetic diet -daily weights Code(s): I50.33 - ACUTE ON CHRONIC DIASTOLIC (CONGESTIVE) HEART FAILURE (3) Anemia Assessment/Plan: -chronic -hematology consult -OLINDA in the past -ferrous sulfate 1 tab po daily -Please reserve transfusion for Hg<7.0 to avoid fluid overload -check B12, Iron, Thyroid, Folate and stool OB Code(s): D64.9 - ANEMIA, UNSPECIFIED (4) Diabetes Assessment/Plan: -BGM AC HS -Diabetic low sodium diet -Decrease levemir to 10 U QAM due to hypoglycemia -ISS -D50 PRN for symptomatic hypoglycemia below 70 mg/dl Code(s): E11.9 - TYPE 2 DIABETES MELLITUS WITHOUT COMPLICATIONS (5) HTN (hypertension) Assessment/Plan: -Cardiology consult -Tele monitoring -mildly bradycardiac on tele -Diruesis -low sodium diabetic diet -Needs Renal biopsy outpatient Code(s): I10 - ESSENTIAL (PRIMARY) HYPERTENSION (6) SOB (shortness of breath) Assessment/Plan: -Pulmonary consult -2/2 to CHF -Bronchodilators for immediate relief -Nasal O2 PRN, keep Spo2 >90% -diuresis Code(s): R06.02 - SHORTNESS OF BREATH (7) Hypothyroidism Assessment/Plan: -started on Levothyroxine 25 mcg po daily -repeat thyroid profile in 6 weeks Code(s): E03.9 - HYPOTHYROIDISM, UNSPECIFIED (8) Constipation Assessment/Plan: -Miralax daily Code(s): K59.00 - CONSTIPATION, UNSPECIFIED Assessment/Plan see problem list
--- NOTE | 2018-09-27 12:10 | PN ---
Progress Note (short form) - Note Progress Note: PULMONARY Breathing continues to improve. No chest pain. Vital Signs Period Temp Pulse Resp BP Sys/East Pulse Ox Last 24 Hr 98.3 F-98.6 F 46-63 12-18 105-200/48-61 98-98 Intake & Output 09/24/18 09/25/18 09/26/18 09/27/18 23:59 23:59 23:59 23:59 Intake Total 520 440 300 180 Output Total 400 Balance 120 440 300 180 Weight 67.222 kg 64.501 kg 63.6 kg 64.138 kg Gen: mildly tachypneic at rest Heart: RRR Lung: decreased breath sounds at the bases Abd: soft, nontender Ext: + edema CBC, BMP 09/27/18 05:35 09/27/18 05:35 Active Medications Acetaminophen (Tylenol -) 650 mg PO Q4H PRN PRN Reason: PAIN LEVEL 1-5 Albuterol/Ipratropium (Duoneb -) 1 amp NEB RQID [facility] Last Admin: 09/27/18 11:22 Dose: 1 amp Alprazolam (Xanax -) 0.5 mg PO Q12H PRN PRN Reason: ANXIETY Last Admin: 09/25/18 20:31 Dose: 0.5 mg Aspirin (Ecotrin -) 81 mg PO DAILY [facility] Last Admin: 09/27/18 09:06 Dose: 81 mg Atorvastatin Calcium (Lipitor -) 20 mg PO HS [facility] Last Admin: 09/26/18 22:04 Dose: 20 mg Bupropion HCl (Wellbutrin Xl -) 150 mg PO DAILY [facility] Last Admin: 09/27/18 09:06 Dose: 150 mg Carbidopa/Levodopa (Sinemet 25/100 -) 1 each PO TID [facility] Last Admin: 09/27/18 06:03 Dose: 1 each Dextrose (D50w (Vial) -) 25 gm IVPUSH PRN PRN PRN Reason: HYPOGLYCEMIA Divalproex Sodium (Depakote -) 250 mg PO DAILY [facility] Last Admin: 09/27/18 09:06 Dose: 250 mg Divalproex Sodium (Depakote -) 125 mg PO HS [facility] Last Admin: 09/26/18 22:05 Dose: 125 mg Docusate Sodium (Colace -) 100 mg PO [facility] Last Admin: 09/26/18 22:04 Dose: 100 mg Donepezil HCl (Aricept -) 10 mg PO DAILY [facility] Last Admin: 09/27/18 09:06 Dose: 10 mg Enoxaparin Sodium (Lovenox -) 30 mg SQ DAILY [facility] Last Admin: 09/27/18 09:06 Dose: 30 mg Furosemide (Lasix Injection -) 80 mg IVPUSH BID@0600,1400 [facility] Last Admin: 09/27/18 06:03 Dose: 80 mg Hydralazine HCl (Apresoline -) 75 mg PO TID [facility] Last Admin: 09/27/18 06:03 Dose: 75 mg Insulin Aspart (Novolog Vial Sliding Scale -) 1 vial SQ TIDAC [facility]; Protocol Last Admin: 09/27/18 08:17 Dose: Not Given Insulin Detemir (Levemir Vial) 10 units SQ AM [facility] Last Admin: 09/27/18 06:03 Dose: 10 units Labetalol HCl (Normodyne -) 400 mg PO TID [facility] Last Admin: 09/27/18 05:48 Dose: Not Given Levothyroxine Sodium (Synthroid -) 25 mcg PO DAILY@0700 [facility] Last Admin: 09/27/18 06:03 Dose: 25 mcg Mirtazapine (Remeron -) 30 mg PO HS [facility] Last Admin: 09/26/18 22:04 Dose: 30 mg Nifedipine (Procardia Xl -) 60 mg PO BID [facility] Last Admin: 09/27/18 09:08 Dose: Not Given Non-Formulary Medication (Olmesartan Medoxomil) 40 mg PO DAILY [facility] Last Admin: 09/26/18 11:28 Dose: 40 mg Pancrelipase (Creon Dr 36,000 Units Capsule) 1 cap PO TIDCM [facility] Last Admin: 09/27/18 12:05 Dose: 1 cap Pantoprazole Sodium (Protonix -) 40 mg PO DAILY [facility] Last Admin: 09/27/18 09:06 Dose: 40 mg Potassium Chloride (K-Dur -) 20 meq PO DAILY [facility] Last Admin: 09/27/18 09:06 Dose: 20 meq Tramadol HCl (Ultram -) 50 mg PO TID PRN PRN Reason: PAIN LEVEL 6-10 A/P Acute on Chronic Diastolic Heart Failure Poorly Controlled HTN Pulmonary HTN Acute on Chronic Renal Failure DM Hyperlipidemia Parkinsons Anemia - continue lasix - monitor urine output, creatinine - daily weights - repeat CXR in AM - O2 to keep Spo2 >90% - beta curtis - BP control - DVT prophylaxis Problem List - Problems (1) Acute on chronic diastolic (congestive) heart failure Code(s): I50.33 - ACUTE ON CHRONIC DIASTOLIC (CONGESTIVE) HEART FAILURE (2) CKD (chronic kidney disease) Code(s): N18.9 - CHRONIC KIDNEY DISEASE, UNSPECIFIED (3) Diabetes Code(s): E11.9 - TYPE 2 DIABETES MELLITUS WITHOUT COMPLICATIONS (4) HLD (hyperlipidemia) Code(s): E78.5 - HYPERLIPIDEMIA, UNSPECIFIED (5) HTN (hypertension) Code(s): I10 - ESSENTIAL (PRIMARY) HYPERTENSION (6) Pleural effusion Code(s): J90 - PLEURAL EFFUSION, NOT ELSEWHERE CLASSIFIED
--- NOTE | 2018-09-27 12:52 | PN ---
Progress Note, Physician History of Present Illness: Pt seen and examined at bedside. She is awake and alert. She denies shortness of breath. - Current Medication List Current Medications: Active Medications Acetaminophen (Tylenol -) 650 mg PO Q4H PRN PRN Reason: PAIN LEVEL 1-5 Albuterol/Ipratropium (Duoneb -) 1 amp NEB RQID [facility] Last Admin: 09/27/18 11:22 Dose: 1 amp Alprazolam (Xanax -) 0.5 mg PO Q12H PRN PRN Reason: ANXIETY Last Admin: 09/25/18 20:31 Dose: 0.5 mg Aspirin (Ecotrin -) 81 mg PO DAILY [facility] Last Admin: 09/27/18 09:06 Dose: 81 mg Atorvastatin Calcium (Lipitor -) 20 mg PO HS [facility] Last Admin: 09/26/18 22:04 Dose: 20 mg Bupropion HCl (Wellbutrin Xl -) 150 mg PO DAILY [facility] Last Admin: 09/27/18 09:06 Dose: 150 mg Carbidopa/Levodopa (Sinemet 25/100 -) 1 each PO TID [facility] Last Admin: 09/27/18 06:03 Dose: 1 each Dextrose (D50w (Vial) -) 25 gm IVPUSH PRN PRN PRN Reason: HYPOGLYCEMIA Divalproex Sodium (Depakote -) 250 mg PO DAILY [facility] Last Admin: 09/27/18 09:06 Dose: 250 mg Divalproex Sodium (Depakote -) 125 mg PO HS [facility] Last Admin: 09/26/18 22:05 Dose: 125 mg Docusate Sodium (Colace -) 100 mg PO HS [facility] Last Admin: 09/26/18 22:04 Dose: 100 mg Donepezil HCl (Aricept -) 10 mg PO DAILY [facility] Last Admin: 09/27/18 09:06 Dose: 10 mg Enoxaparin Sodium (Lovenox -) 30 mg SQ DAILY [facility] Last Admin: 09/27/18 09:06 Dose: 30 mg Furosemide (Lasix Injection -) 80 mg IVPUSH BID@0600,1400 [facility] Last Admin: 09/27/18 06:03 Dose: 80 mg Hydralazine HCl (Apresoline -) 75 mg PO TID [facility] Last Admin: 09/27/18 06:03 Dose: 75 mg Insulin Aspart (Novolog Vial Sliding Scale -) 1 vial SQ TIDAC [facility]; Protocol Last Admin: 09/27/18 08:17 Dose: Not Given Insulin Detemir (Levemir Vial) 10 units SQ AM [facility] Last Admin: 09/27/18 06:03 Dose: 10 units Labetalol HCl (Normodyne -) 400 mg PO TID [facility] Last Admin: 09/27/18 05:48 Dose: Not Given Levothyroxine Sodium (Synthroid -) 25 mcg PO DAILY@0700 [facility] Last Admin: 09/27/18 06:03 Dose: 25 mcg Mirtazapine (Remeron -) 30 mg PO HS [facility] Last Admin: 09/26/18 22:04 Dose: 30 mg Nifedipine (Procardia Xl -) 60 mg PO BID [facility] Last Admin: 09/27/18 09:08 Dose: Not Given Non-Formulary Medication (Olmesartan Medoxomil) 40 mg PO DAILY [facility] Last Admin: 09/26/18 11:28 Dose: 40 mg Pancrelipase (Creon Dr 36,000 Units Capsule) 1 cap PO TIDCM [facility] Last Admin: 09/27/18 12:05 Dose: 1 cap Pantoprazole Sodium (Protonix -) 40 mg PO DAILY [facility] Last Admin: 09/27/18 09:06 Dose: 40 mg Potassium Chloride (K-Dur -) 20 meq PO DAILY [facility] Last Admin: 09/27/18 09:06 Dose: 20 meq Tramadol HCl (Ultram -) 50 mg PO TID PRN PRN Reason: PAIN LEVEL 6-10 - Objective Vital Signs: Vital Signs Temperature 98.6 F 09/27/18 08:22 Pulse Rate 60 09/27/18 10:00 Respiratory Rate 18 09/27/18 10:00 Blood Pressure 137/48 L 09/27/18 10:00 O2 Sat by Pulse Oximetry (%) 98 09/27/18 08:30 Constitutional: Yes: Calm Eyes: Yes: Conjunctiva Clear HENT: Yes: Atraumatic Neck: Yes: Supple Cardiovascular: Yes: S1, S2 Respiratory: Yes: CTA Bilaterally, On Nasal O2 Gastrointestinal: Yes: Soft Genitourinary: Yes: WNL Musculoskeletal: Yes: WNL Edema: Yes (improving) Edema: LLE: 1+, RLE: 1+ Neurological: Yes: Oriented Psychiatric: Yes: Oriented Labs: CBC, BMP 09/27/18 05:35 09/27/18 05:35 Problem List - Problems (1) CHF (congestive heart failure) Code(s): I50.9 - HEART FAILURE, UNSPECIFIED Qualifiers: (2) CKD (chronic kidney disease) Code(s): N18.9 - CHRONIC KIDNEY DISEASE, UNSPECIFIED Assessment/Plan Current Medications Generic Name Dose Route Start Last Admin Trade Name Freq PRN Reason Stop Dose Admin Acetaminophen 650 mg 09/23/18 15:59 Tylenol - PO Q4H PRN PAIN LEVEL 1-5 Albuterol/Ipratropium 1 amp 09/23/18 16:00 09/27/18 11:22 Duoneb - NEB 1 amp RQID [facility] Administration Alprazolam 0.5 mg 09/24/18 18:22 09/25/18 20:31 Xanax - PO 0.5 mg Q12H PRN Administration ANXIETY Aspirin 81 mg 09/24/18 10:00 09/27/18 09:06 Ecotrin - PO 81 mg DAILY [facility] Administration Atorvastatin Calcium 20 mg 09/23/18 22:00 09/26/18 22:04 Lipitor - PO 20 mg HS [facility] Administration Bupropion HCl 150 mg 09/24/18 10:00 09/27/18 09:06 Wellbutrin Xl - PO 150 mg DAILY [facility] Administration Carbidopa/Levodopa 1 each 09/23/18 16:00 09/27/18 06:03 Sinemet 25/100 - PO 1 each TID [facility] Administration Dextrose 25 gm 09/24/18 09:55 D50w (Vial) - IVPUSH PRN PRN HYPOGLYCEMIA Divalproex Sodium 250 mg 09/24/18 10:00 09/27/18 09:06 Depakote - PO 250 mg DAILY [facility] Administration Divalproex Sodium 125 mg 09/23/18 22:00 09/26/18 22:05 Depakote - PO 125 mg HS [facility] Administration Docusate Sodium 100 mg 09/23/18 22:00 09/26/18 22:04 Colace - PO 100 mg HS [facility] Administration Donepezil HCl 10 mg 09/24/18 10:00 09/27/18 09:06 Aricept - PO 10 mg DAILY [facility] Administration Enoxaparin Sodium 30 mg 09/24/18 10:00 09/27/18 09:06 Lovenox - SQ 30 mg DAILY [facility] Administration Furosemide 80 mg 09/26/18 14:00 09/27/18 06:03 Lasix Injection - IVPUSH 80 mg BID@0600,1400 [facility] Administration Hydralazine HCl 75 mg 09/26/18 22:00 09/27/18 06:03 Apresoline - PO 75 mg TID [facility] Administration Insulin Aspart 1 vial 09/23/18 16:30 09/27/18 08:17 Novolog Vial Sliding Scale - SQ Not Given TIDAC [facility] Protocol Insulin Detemir 10 units 09/24/18 07:00 09/27/18 06:03 Levemir Vial SQ 10 units AM [facility] Administration Labetalol HCl 400 mg 09/23/18 16:00 09/27/18 05:48 Normodyne - PO Not Given TID [facility] Levothyroxine Sodium 25 mcg 09/24/18 09:50 09/27/18 06:03 Synthroid - PO 25 mcg DAILY@0700 [facility] Administration Mirtazapine 30 mg 09/26/18 22:00 09/26/18 22:04 Remeron - PO 30 mg HS [facility] Administration Nifedipine 60 mg 09/24/18 13:37 09/27/18 09:08 Procardia Xl - PO Not Given BID [facility] Non-Formulary Medication 40 mg 09/24/18 10:00 09/26/18 11:28 Olmesartan Medoxomil PO 40 mg DAILY [facility] Administration Pancrelipase 1 cap 09/23/18 17:30 09/27/18 12:05 Elaine Sweeney 36,000 Units Capsule PO 1 cap TIDCM [facility] Administration Pantoprazole Sodium 40 mg 09/24/18 10:00 09/27/18 09:06 Protonix - PO 40 mg DAILY [facility] Administration Potassium Chloride 20 meq 09/24/18 10:00 09/27/18 09:06 K-Dur - PO 20 meq DAILY [facility] Administration Tramadol HCl 50 mg 09/23/18 15:50 Ultram - PO TID PRN PAIN LEVEL 6-10 Laboratory Tests 10/10/15 05/05/18 07/29/18 14:25 06:30 17:15 Urine Protein Urine Blood Ur Leukocyte Esterase CARMEN M-Jacob Not observed DAVID Screen Negative c-ANCA <1:20 Proteinase 3 (PR3) <3.5 SS-A/Ro Antibody <0.2 p-ANCA <1:20 Atypical p-ANCA <1:20 SS-B/La Antibody <0.2 Myeloperoxidase Ab <9.0 Double Strand DNA Ab <1 09/23/18 14:53 Urine Protein 2+ H Urine Blood Negative Ur Leukocyte Esterase 1+ H CARMEN M-Jacob DAVID Screen c-ANCA Proteinase 3 (PR3) SS-A/Ro Antibody p-ANCA Atypical p-ANCA SS-B/La Antibody Myeloperoxidase Ab Double Strand DNA Ab Impression 1. JASPER/CKD 2. fluid overload 3. HLD 4. shortness of breath 5. HTN 6. DM 7. 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
[2018-09-27] MEDS: PATIENT'S OWN MEDICATION (NON-FORMULARY) (Olmesartan Medoxomil 40 MG) PO SCH ×2 (13:58→17:24)
--- NOTE | 2018-09-27 14:11 | CONSULT ---
Consult - text type - Consultation Consultation Note: NEUROLOGY CONSULT GREATLY APPRECIATED: Seen and examined as requested by daughter. This 78 yo LH F is well known to me with HTN, HLD, DM, dementia, depression, GERD, CHF, hx Myoclonus, Migraines, RLS and Parkinsonian features. Last seen in office consult 09/06/18. On: ASA 81, atorvastatin, buproprion 150 mg, Sinemet CR 25/100 TID, Depakote 250 BID, donepezil 10 mg qAM, hydralazine 50 mg qd, labetalol 400 mg TID, mirtazapine 15 mg Hs, olmesartan, pantoprazole, torsemide, tramadol 50 mg TID prn, insulins. Admitted for "fluid in lungs" and leg swelling, improved with diuresis. Admission Systolic BPs 150s-200s and still labile ranging from 150-200/50-70s. Pt without any specific complaints, requesting to go home. H/H 7.8/23.7 MCV 79.9 - on IV iron sucrose; BUN/Cr 34.2/Cr 1.6; TSH= 12.50!! T4 - 0.98 UA - negative STEVENSON: Cor reg. No bruit. Neck supple 1+ pitting edema. NEURO: Awake, alert, responsive. Ox "[facility]" "June or July" corrected to 2018. "Near September." No president. 04/24 recall @ 3 min. + glabella CNII-CNXII: EOM's full. Full thorne. Gag ok. Motor: No drift. Intermittent rest tremor. Min cogwheeling. Decreased SELENE's. Strength normal. Reflexes normal, except absent AJ's. Plantars silent. Coordination: No FTN dystaxia, but slowed. Sensation: decreased vibration feet. Romberg +/- Gait: flexed, shuffling, retropulsive. Impression: Moderate B/L Cerebral Dysfunction (OMS, c/w Alzheimer's disease) Worsened by Toxic-Metabolic Encephalopathy (CHF) +/- Hypertensive encephalopathy, anemia, hypothyroidism! Parkinsonian features c/w Parkinson's Disease Migraine Headaches Restless Limbs Syndrome Peripheral Neuropathy c/w Diabetic Polyneuropathy Suggest: Simplify medication regimen Aggressive tx for HTN to maintain systolic < 130s Endocrinology consultation and Rx for hypothyroidism as indicated Continue Depakote 250 mg BID and labetalol 400 mg TID for migraine prevention Continue Donepezil 10 mg po qAM Continue Sinemet Cr 25/100 TID with meals @ 7-12-5 PT marlene for gait training and [facility]lene Thank you very much, Panchito Helton MD
--- NOTE | 2018-09-27 14:28 | PN ---
Progress Note, Physician Chief Complaint: Cards FU Telem NSR No dyspnea. No chest pain History of Present Illness: 78-year-old female history of diabetes, hypertension, hyperlipidemia, Parkinson 's dementia, diverticulosis, GI bleed, normal left ventricular ejection fraction 05/03/2018, now presenting with shortness of breath, and JASPER was treated for acute on chronic diastolic heart failure. BP has been labile. - Current Medication List Current Medications: Active Medications Acetaminophen (Tylenol -) 650 mg PO Q4H PRN PRN Reason: PAIN LEVEL 1-5 Albuterol/Ipratropium (Duoneb -) 1 amp NEB RQID [facility] Last Admin: 09/27/18 11:22 Dose: 1 amp Alprazolam (Xanax -) 0.5 mg PO Q12H PRN PRN Reason: ANXIETY Last Admin: 09/25/18 20:31 Dose: 0.5 mg Aspirin (Ecotrin -) 81 mg PO DAILY [facility] Last Admin: 09/27/18 09:06 Dose: 81 mg Atorvastatin Calcium (Lipitor -) 20 mg PO HS [facility] Last Admin: 09/26/18 22:04 Dose: 20 mg Bupropion HCl (Wellbutrin Xl -) 150 mg PO DAILY [facility] Last Admin: 09/27/18 09:06 Dose: 150 mg Carbidopa/Levodopa (Sinemet 25/100 -) 1 each PO TID [facility] Last Admin: 09/27/18 13:59 Dose: 1 each Dextrose (D50w (Vial) -) 25 gm IVPUSH PRN PRN PRN Reason: HYPOGLYCEMIA Divalproex Sodium (Depakote -) 250 mg PO DAILY [facility] Last Admin: 09/27/18 09:06 Dose: 250 mg Divalproex Sodium (Depakote -) 125 mg PO HS [facility] Last Admin: 09/26/18 22:05 Dose: 125 mg Docusate Sodium (Colace -) 100 mg PO HS [facility] Last Admin: 09/26/18 22:04 Dose: 100 mg Donepezil HCl (Aricept -) 10 mg PO DAILY [facility] Last Admin: 09/27/18 09:06 Dose: 10 mg Enoxaparin Sodium (Lovenox -) 30 mg SQ DAILY [facility] Last Admin: 09/27/18 09:06 Dose: 30 mg Furosemide (Lasix Injection -) 80 mg IVPUSH BID@0600,1400 [facility] Last Admin: 09/27/18 13:57 Dose: 80 mg Hydralazine HCl (Apresoline -) 75 mg PO TID [facility] Last Admin: 09/27/18 14:10 Dose: Not Given Insulin Aspart (Novolog Vial Sliding Scale -) 1 vial SQ TIDAC [facility]; Protocol Last Admin: 09/27/18 12:00 Dose: Not Given Insulin Detemir (Levemir Vial) 10 units SQ AM [facility] Last Admin: 09/27/18 06:03 Dose: 10 units Labetalol HCl (Normodyne -) 400 mg PO TID [facility] Last Admin: 09/27/18 13:58 Dose: 400 mg Levothyroxine Sodium (Synthroid -) 25 mcg PO DAILY@0700 [facility] Last Admin: 09/27/18 06:03 Dose: 25 mcg Mirtazapine (Remeron -) 30 mg PO HS [facility] Last Admin: 09/26/18 22:04 Dose: 30 mg Nifedipine (Procardia Xl -) 60 mg PO BID [facility] Last Admin: 09/27/18 09:08 Dose: Not Given Non-Formulary Medication (Olmesartan Medoxomil) 40 mg PO DAILY [facility] Last Admin: 09/26/18 11:28 Dose: 40 mg Pancrelipase (Creon Dr 36,000 Units Capsule) 1 cap PO TIDCM [facility] Last Admin: 09/27/18 12:05 Dose: 1 cap Pantoprazole Sodium (Protonix -) 40 mg PO DAILY [facility] Last Admin: 09/27/18 09:06 Dose: 40 mg Potassium Chloride (K-Dur -) 20 meq PO DAILY [facility] Last Admin: 09/27/18 09:06 Dose: 20 meq Tramadol HCl (Ultram -) 50 mg PO TID PRN PRN Reason: PAIN LEVEL 6-10 - Objective Vital Signs: Vital Signs Temperature 98.6 F 09/27/18 08:22 Pulse Rate 60 09/27/18 10:00 Respiratory Rate 18 09/27/18 10:00 Blood Pressure 137/48 L 09/27/18 10:00 O2 Sat by Pulse Oximetry (%) 98 09/27/18 08:30 BP supine 192/54 Seated 172/55 Constitutional: Yes: Well Nourished, No Distress Eyes: Yes: Conjunctiva Clear HENT: Yes: Atraumatic Neck: Yes: Supple, Trachea Midline Cardiovascular: Yes: Regular Rate and Rhythm, JVD, S1, S2 Respiratory: Yes: Regular, Dullness (bibasilar reduced BS) Gastrointestinal: Yes: Normal Bowel Sounds Edema: Yes Edema: LLE: 1+, RLE: 1+ Labs: CBC, BMP 09/27/18 05:35 09/27/18 05:35 Problem List - Problems (1) CHF (congestive heart failure) Code(s): I50.9 - HEART FAILURE, UNSPECIFIED Qualifiers: (2) HTN (hypertension) Code(s): I10 - ESSENTIAL (PRIMARY) HYPERTENSION Assessment/Plan She has labile BP with orthostatic decline. BP supine 192/54 Seated 172/55 Would not increase BP medications given significant fluctuations in her BP and at times significant drops. She is still volume overloaded but seems to be improving on IV diuretics.
[2018-09-27] MEDS ORDERED: DEXTROSE 50%-WATER - 25 GM/50 ML VIAL IVPUSH PRN (16:28)
[2018-09-27] MEDS: POLYETHYLENE GLYCOL 3350 119 GM BTL PO SCH (17:23)
[2018-09-27] MEDS: FERROUS SO4 325 MG TABLET (FP) PO SCH (17:24)
[2018-09-27] MEDS ORDERED: PT OWN MED DRAWER 7, Y5N ONE (18:31)
[2018-09-27] MEDS: ATORVASTATIN CA 20 MG TABLET (FP) PO SCH (21:50)
[2018-09-27] MEDS: DIVALPROEX SODIUM 125 MG TABLET E.C. PO SCH (21:50)
[2018-09-27] MEDS: DOCUSATE SODIUM 100 MG CAPSULE (FP) PO SCH (21:50)
[2018-09-27] MEDS: MIRTAZAPINE 15 MG TABLET (FP) PO SCH (21:51)
[2018-09-28] MEDS: hydrALAZINE HCL 50 MG TABLET (FP) PO SCH ×4 (05:54→21:09)
[2018-09-28] MEDS: CARBIDOPA/LEVODOPA 25/100 TABLET (FP) PO SCH ×3 (05:54→21:21)
[2018-09-28] MEDS: FUROSEMIDE 40 MG/4 ML INJECTABLE VIAL IVPUSH SCH ×2 (06:09→13:57)
[2018-09-28] MEDS: INSULIN SLIDING SCALE (NOVOLOG) 1 VIAL SQ SCH ×3 (06:09→17:15)
[2018-09-28] MEDS: LEVOTHYROXINE NA 25 MCG TABLET (FP) PO SCH (06:10)
[2018-09-28] MEDS: LABETALOL HCL 200 MG TABLET (FP) PO SCH ×3 (06:10→21:10)
[2018-09-28] MEDS: ALBUTEROL SO4 2.5/IPRATROPIUM 0.5 INH SOL 3 ML VIAL.NEB. NEB SCH ×2 (08:00→12:15)
[2018-09-28] MEDS: LIPASE/PROTEASE/AMYLASE 36,000 UNIT CAPSULE PO SCH ×3 (08:51→17:41)
[2018-09-28] MEDS: POTASSIUM CHLORIDE TABS 20 MEQ TABLET.ER (FP) PO SCH (09:45)
[2018-09-28] MEDS: POLYETHYLENE GLYCOL 3350 119 GM BTL PO SCH (09:45)
[2018-09-28] MEDS: FERROUS SO4 325 MG TABLET (FP) PO SCH (09:45)
[2018-09-28] MEDS: ENOXAPARIN NA (PORCINE) 30 MG/0.3 ML DISP.SYRIN SQ SCH (09:45)
[2018-09-28] MEDS: DIVALPROEX SODIUM 250 MG TABLET E.C. PO SCH (09:45)
[2018-09-28] MEDS: ASPIRIN COATED 81 MG TABLET.EC PO SCH (09:45)
[2018-09-28] MEDS: PANTOPRAZOLE 40 MG TABLET (FP) PO SCH (09:45)
[2018-09-28] MEDS: PATIENT'S OWN MEDICATION (NON-FORMULARY) (Olmesartan Medoxomil 40 MG) PO SCH (09:47)
[2018-09-28] MEDS: NIFEdipine E.R 60 MG TABLET (UD) PO SCH ×2 (09:48→21:10)
[2018-09-28] MEDS: DONEPEZIL HCL 10 MG TABLET (FP) PO SCH (09:51)
[2018-09-28] MEDS ORDERED: SENNOSIDES 8.6MG TABLET (FP) PO PRN (10:28)
--- NOTE | 2018-09-28 10:30 | PN ---
Progress Note, Physician Chief Complaint: CHF exacerbation HTN Hypothyroidism Anemia History of Present Illness: NAD feels a little better wants to go home - Current Medication List Current Medications: Active Medications Acetaminophen (Tylenol -) 650 mg PO Q4H PRN PRN Reason: PAIN LEVEL 1-5 Albuterol/Ipratropium (Duoneb -) 1 amp NEB RQID [facility] Last Admin: 09/28/18 08:00 Dose: 1 amp Alprazolam (Xanax -) 0.5 mg PO Q12H PRN PRN Reason: ANXIETY Last Admin: 09/25/18 20:31 Dose: 0.5 mg Aspirin (Ecotrin -) 81 mg PO DAILY [facility] Last Admin: 09/28/18 09:45 Dose: 81 mg Atorvastatin Calcium (Lipitor -) 20 mg PO HS [facility] Last Admin: 09/27/18 21:50 Dose: 20 mg Bupropion HCl (Wellbutrin Xl -) 150 mg PO DAILY [facility] Last Admin: 09/28/18 09:46 Dose: 150 mg Carbidopa/Levodopa (Sinemet 25/100 -) 1 each PO TID [facility] Last Admin: 09/28/18 05:54 Dose: 1 each Dextrose (D50w (Vial) -) 25 gm IVPUSH PRN PRN PRN Reason: HYPOGLYCEMIA Divalproex Sodium (Depakote -) 250 mg PO DAILY [facility] Last Admin: 09/28/18 09:45 Dose: 250 mg Divalproex Sodium (Depakote -) 125 mg PO HS [facility] Last Admin: 09/27/18 21:50 Dose: 125 mg Docusate Sodium (Colace -) 100 mg PO HS [facility] Last Admin: 09/27/18 21:50 Dose: 100 mg Donepezil HCl (Aricept -) 10 mg PO DAILY [facility] Last Admin: 09/28/18 09:51 Dose: 10 mg Enoxaparin Sodium (Lovenox -) 30 mg SQ DAILY [facility] Last Admin: 09/28/18 09:45 Dose: 30 mg Ferrous Sulfate (Feosol -) 325 mg PO DAILY [facility] Last Admin: 09/28/18 09:45 Dose: 325 mg Furosemide (Lasix Injection -) 80 mg IVPUSH BID@0600,1400 [facility] Last Admin: 09/28/18 06:09 Dose: 80 mg Hydralazine HCl (Apresoline -) 75 mg PO TID [facility] Last Admin: 09/28/18 05:54 Dose: 75 mg Insulin Aspart (Novolog Vial Sliding Scale -) 1 vial SQ TIDAC [facility]; Protocol Last Admin: 09/28/18 06:09 Dose: Not Given Labetalol HCl (Normodyne -) 400 mg PO TID [facility] Last Admin: 09/28/18 06:10 Dose: 400 mg Levothyroxine Sodium (Synthroid -) 25 mcg PO DAILY@0700 [facility] Last Admin: 09/28/18 06:10 Dose: 25 mcg Mirtazapine (Remeron -) 30 mg PO HS [facility] Last Admin: 09/27/18 21:51 Dose: 30 mg Nifedipine (Procardia Xl -) 60 mg PO BID [facility] Last Admin: 09/28/18 09:48 Dose: 60 mg Non-Formulary Medication (Olmesartan Medoxomil) 40 mg PO DAILY [facility] Last Admin: 09/28/18 09:47 Dose: 40 mg Pancrelipase (Creon Dr 36,000 Units Capsule) 1 cap PO TIDCM [facility] Last Admin: 09/28/18 08:51 Dose: 1 cap Pantoprazole Sodium (Protonix -) 40 mg PO DAILY [facility] Last Admin: 09/28/18 09:45 Dose: 40 mg Polyethylene Glycol (Miralax (For Daily Use) -) 17 gm PO DAILY [facility] Last Admin: 09/28/18 09:45 Dose: 17 grams Potassium Chloride (K-Dur -) 20 meq PO DAILY [facility] Last Admin: 09/28/18 09:45 Dose: 20 meq Tramadol HCl (Ultram -) 50 mg PO TID PRN PRN Reason: PAIN LEVEL 6-10 - Objective Vital Signs: Vital Signs Temperature 98.4 F 09/28/18 06:00 Pulse Rate 60 09/28/18 06:00 Respiratory Rate 14 09/28/18 06:00 Blood Pressure 170/80 09/28/18 06:00 O2 Sat by Pulse Oximetry (%) 98 09/27/18 20:00 Constitutional: Yes: Well Nourished, No Distress, Calm Cardiovascular: Yes: Regular Rate and Rhythm Respiratory: Yes: Regular Gastrointestinal: Yes: Normal Bowel Sounds, Soft Genitourinary: Yes: WNL Musculoskeletal: Yes: Muscle Weakness Extremities: Yes: WNL Edema: Yes Peripheral Pulses WNL: Yes Neurological: Yes: Alert, Oriented Psychiatric: Yes: Alert, Oriented Labs: CBC, BMP 09/27/18 05:35 09/27/18 05:35 Problem List - Problems (1) JASPER (acute kidney injury) Assessment/Plan: -nephrology consult -monitor trend Code(s): N17.9 - ACUTE KIDNEY FAILURE, UNSPECIFIED (2) Acute on chronic diastolic (congestive) heart failure Assessment/Plan: -Cardiology consult -Tele monitoring -mildly bradycardiac on tele -Diruesis -low sodium diabetic diet -daily weights Code(s): I50.33 - ACUTE ON CHRONIC DIASTOLIC (CONGESTIVE) HEART FAILURE (3) Anemia Assessment/Plan: -chronic -hematology consult -[place] transfusion for Hg<7.0 to avoid fluid overload -Iron% low -B12 normal -TSH elevated Code(s): D64.9 - ANEMIA, UNSPECIFIED (4) Diabetes Assessment/Plan: -BGM AC HS -Diabetic low sodium diet -Decrease po intake -d/c levemir and monitor for now -ISS -D50PRN for symptomatic hypoglycemia below 70 mg/dl Code(s): E11.9 - TYPE 2 DIABETES MELLITUS WITHOUT COMPLICATIONS (5) HTN (hypertension) Assessment/Plan: -labile htn -Cardiology consult -Tele monitoring -mildly bradycardiac on tele -Diruesis -low sodium diabetic diet -Needs Renal biopsy outpatient Code(s): I10 - ESSENTIAL (PRIMARY) HYPERTENSION (6) SOB (shortness of breath) Assessment/Plan: -Pulmonary consult -2/2 to CHF -Bronchodilators for immediate relief -Nasal O2 PRN, keep Spo2 >90% -diuresis Code(s): R06.02 - SHORTNESS OF BREATH (7) Hypothyroidism Assessment/Plan: -started on Levothyroxine 25 mcg po daily -repeat thyroid profile in 6 weeks Code(s): E03.9 - HYPOTHYROIDISM, UNSPECIFIED Assessment/Plan see problem list
[2018-09-28] MEDS ORDERED: hydrALAZINE HCL 50 MG TABLET (FP) PO SCH (10:52)
[2018-09-28] MEDS ORDERED: INSULIN (NOVOLOG) ASPART 100 UNITS/ML 10ML VIAL ONE (11:29)
[2018-09-28] MEDS ORDERED: IRON SUCROSE INJECTION 200 MG in SODIUM CHLORIDE 90 ML IVPB ONE (11:30)
--- NOTE | 2018-09-28 12:36 | PN ---
Progress Note (short form) - Note Progress Note: PULMONARY Breathing continues to improve. No chest pain. Wants to go home. CXR still with congestive changes. Vital Signs Period Temp Pulse Resp BP Sys/East Pulse Ox Last 24 Hr 97.2 F-98.4 F 55-63 11-18 138-208/41-104 97-98 Intake & Output 09/25/18 09/26/18 09/27/18 09/28/18 23:59 23:59 23:59 23:59 Intake Total 440 300 360 180 Balance 440 300 360 180 Weight 64.501 kg 63.6 kg 64.138 kg 64.138 kg Gen: less tachypneic at rest Heart: RRR Lung: decreased breath sounds at the bases Abd: soft, nontender Ext: + edema CBC, BMP 09/27/18 05:35 09/27/18 05:35 Active Medications Acetaminophen (Tylenol -) 650 mg PO Q4H PRN PRN Reason: PAIN LEVEL 1-5 Albuterol/Ipratropium (Duoneb -) 1 amp NEB RQID [facility] Last Admin: 09/28/18 12:15 Dose: 1 amp Alprazolam (Xanax -) 0.5 mg PO Q12H PRN PRN Reason: ANXIETY Last Admin: 09/25/18 20:31 Dose: 0.5 mg Aspirin (Ecotrin -) 81 mg PO DAILY [facility] Last Admin: 09/28/18 09:45 Dose: 81 mg Atorvastatin Calcium (Lipitor -) 20 mg PO HS [facility] Last Admin: 09/27/18 21:50 Dose: 20 mg Bupropion HCl (Wellbutrin Xl -) 150 mg PO DAILY [facility] Last Admin: 09/28/18 09:46 Dose: 150 mg Carbidopa/Levodopa (Sinemet 25/100 -) 1 each PO TID [facility] Last Admin: 09/28/18 05:54 Dose: 1 each Dextrose (D50w (Vial) -) 25 gm IVPUSH PRN PRN PRN Reason: HYPOGLYCEMIA Divalproex Sodium (Depakote -) 250 mg PO DAILY [facility] Last Admin: 09/28/18 09:45 Dose: 250 mg Divalproex Sodium (Depakote -) 125 mg PO HS [facility] Last Admin: 09/27/18 21:50 Dose: 125 mg Docusate Sodium (Colace -) 100 mg PO HS [facility] Last Admin: 09/27/18 21:50 Dose: 100 mg Donepezil HCl (Aricept -) 10 mg PO DAILY [facility] Last Admin: 09/28/18 09:51 Dose: 10 mg Enoxaparin Sodium (Lovenox -) 30 mg SQ DAILY [facility] Last Admin: 09/28/18 09:45 Dose: 30 mg Furosemide (Lasix Injection -) 80 mg IVPUSH BID@0600,1400 [facility] Last Admin: 09/28/18 06:09 Dose: 80 mg Hydralazine HCl (Apresoline -) 100 mg PO TID [facility] Insulin Aspart (Novolog Vial Sliding Scale -) 1 vial SQ TIDAC [facility]; Protocol Last Admin: 09/28/18 11:39 Dose: Not Given Labetalol HCl (Normodyne -) 400 mg PO TID [facility] Last Admin: 09/28/18 06:10 Dose: 400 mg Levothyroxine Sodium (Synthroid -) 25 mcg PO DAILY@0700 [facility] Last Admin: 09/28/18 06:10 Dose: 25 mcg Mirtazapine (Remeron -) 30 mg PO HS [facility] Last Admin: 09/27/18 21:51 Dose: 30 mg Nifedipine (Procardia Xl -) 60 mg PO BID [facility] Last Admin: 09/28/18 09:48 Dose: 60 mg Non-Formulary Medication (Olmesartan Medoxomil) 40 mg PO DAILY [facility] Last Admin: 09/28/18 09:47 Dose: 40 mg Pancrelipase (Creon Dr 36,000 Units Capsule) 1 cap PO TIDCM [facility] Last Admin: 09/28/18 08:51 Dose: 1 cap Pantoprazole Sodium (Protonix -) 40 mg PO DAILY [facility] Last Admin: 09/28/18 09:45 Dose: 40 mg Polyethylene Glycol (Miralax (For Daily Use) -) 17 gm PO DAILY [facility] Last Admin: 09/28/18 09:45 Dose: 17 grams Potassium Chloride (K-Dur -) 20 meq PO DAILY [facility] Last Admin: 09/28/18 09:45 Dose: 20 meq Senna (Senna -) 2 tab PO HS PRN PRN Reason: CONSTIPATION Tramadol HCl (Ultram -) 50 mg PO TID PRN PRN Reason: PAIN LEVEL 6-10 A/P Acute on Chronic Diastolic Heart Failure Poorly Controlled HTN Pulmonary HTN Acute on Chronic Renal Failure DM Hyperlipidemia Parkinsons Anemia - continue lasix - monitor urine output, creatinine - daily weights - O2 to keep Spo2 >90% - beta curtis - BP control - DVT prophylaxis Problem List - Problems (1) Acute on chronic diastolic (congestive) heart failure Code(s): I50.33 - ACUTE ON CHRONIC DIASTOLIC (CONGESTIVE) HEART FAILURE (2) CKD (chronic kidney disease) Code(s): N18.9 - CHRONIC KIDNEY DISEASE, UNSPECIFIED (3) Diabetes Code(s): E11.9 - TYPE 2 DIABETES MELLITUS WITHOUT COMPLICATIONS (4) HLD (hyperlipidemia) Code(s): E78.5 - HYPERLIPIDEMIA, UNSPECIFIED (5) HTN (hypertension) Code(s): I10 - ESSENTIAL (PRIMARY) HYPERTENSION (6) Pleural effusion Code(s): J90 - PLEURAL EFFUSION, NOT ELSEWHERE CLASSIFIED
--- NOTE | 2018-09-28 12:55 | PN ---
Progress Note, Physician History of Present Illness: Pt seen and examined at bedside. She is awake and alert. She denies shortness of breath. She is asking to go home today. - Current Medication List Current Medications: Active Medications Acetaminophen (Tylenol -) 650 mg PO Q4H PRN PRN Reason: PAIN LEVEL 1-5 Albuterol/Ipratropium (Duoneb -) 1 amp NEB RQID [facility] Last Admin: 09/28/18 12:15 Dose: 1 amp Alprazolam (Xanax -) 0.5 mg PO Q12H PRN PRN Reason: ANXIETY Last Admin: 09/25/18 20:31 Dose: 0.5 mg Aspirin (Ecotrin -) 81 mg PO DAILY [facility] Last Admin: 09/28/18 09:45 Dose: 81 mg Atorvastatin Calcium (Lipitor -) 20 mg PO HS [facility] Last Admin: 09/27/18 21:50 Dose: 20 mg Bupropion HCl (Wellbutrin Xl -) 150 mg PO DAILY [facility] Last Admin: 09/28/18 09:46 Dose: 150 mg Carbidopa/Levodopa (Sinemet 25/100 -) 1 each PO TID [facility] Last Admin: 09/28/18 05:54 Dose: 1 each Dextrose (D50w (Vial) -) 25 gm IVPUSH PRN PRN PRN Reason: HYPOGLYCEMIA Divalproex Sodium (Depakote -) 250 mg PO DAILY [facility] Last Admin: 09/28/18 09:45 Dose: 250 mg Divalproex Sodium (Depakote -) 125 mg PO HS [facility] Last Admin: 09/27/18 21:50 Dose: 125 mg Docusate Sodium (Colace -) 100 mg PO HS [facility] Last Admin: 09/27/18 21:50 Dose: 100 mg Donepezil HCl (Aricept -) 10 mg PO DAILY [facility] Last Admin: 09/28/18 09:51 Dose: 10 mg Enoxaparin Sodium (Lovenox -) 30 mg SQ DAILY [facility] Last Admin: 09/28/18 09:45 Dose: 30 mg Furosemide (Lasix Injection -) 80 mg IVPUSH BID@0600,1400 [facility] Last Admin: 09/28/18 06:09 Dose: 80 mg Hydralazine HCl (Apresoline -) 75 mg PO TID [facility] Insulin Aspart (Novolog Vial Sliding Scale -) 1 vial SQ TIDAC [facility]; Protocol Last Admin: 09/28/18 11:39 Dose: Not Given Labetalol HCl (Normodyne -) 400 mg PO TID [facility] Last Admin: 09/28/18 06:10 Dose: 400 mg Levothyroxine Sodium (Synthroid -) 25 mcg PO DAILY@0700 [facility] Last Admin: 09/28/18 06:10 Dose: 25 mcg Mirtazapine (Remeron -) 30 mg PO HS [facility] Last Admin: 09/27/18 21:51 Dose: 30 mg Nifedipine (Procardia Xl -) 60 mg PO BID [facility] Last Admin: 09/28/18 09:48 Dose: 60 mg Non-Formulary Medication (Olmesartan Medoxomil) 40 mg PO DAILY [facility] Last Admin: 09/28/18 09:47 Dose: 40 mg Pancrelipase (Creon Dr 36,000 Units Capsule) 1 cap PO TIDCM [facility] Last Admin: 09/28/18 08:51 Dose: 1 cap Pantoprazole Sodium (Protonix -) 40 mg PO DAILY [facility] Last Admin: 09/28/18 09:45 Dose: 40 mg Polyethylene Glycol (Miralax (For Daily Use) -) 17 gm PO DAILY [facility] Last Admin: 09/28/18 09:45 Dose: 17 grams Potassium Chloride (K-Dur -) 20 meq PO DAILY [facility] Last Admin: 09/28/18 09:45 Dose: 20 meq Senna (Senna -) 2 tab PO PRN PRN Reason: CONSTIPATION Tramadol HCl (Ultram -) 50 mg PO TID PRN PRN Reason: PAIN LEVEL 6-10 - Objective Vital Signs: Vital Signs Temperature 98 F 09/28/18 10:00 Pulse Rate 55 L 09/28/18 10:00 Respiratory Rate 14 09/28/18 10:00 Blood Pressure 138/48 L 09/28/18 10:00 O2 Sat by Pulse Oximetry (%) 97 09/28/18 09:00 Constitutional: Yes: Calm Eyes: Yes: Conjunctiva Clear HENT: Yes: Atraumatic Neck: Yes: Supple Cardiovascular: Yes: S1, S2 Respiratory: Yes: CTA Bilaterally Gastrointestinal: Yes: Soft Genitourinary: Yes: WNL Musculoskeletal: Yes: WNL Edema: Yes Edema: LLE: 1+, RLE: 1+ Neurological: Yes: Oriented Psychiatric: Yes: Oriented Labs: CBC, BMP 09/27/18 05:35 09/27/18 05:35 Problem List - Problems (1) CHF (congestive heart failure) Code(s): I50.9 - HEART FAILURE, UNSPECIFIED Qualifiers: (2) CKD (chronic kidney disease) Code(s): N18.9 - CHRONIC KIDNEY DISEASE, UNSPECIFIED Assessment/Plan Current Medications Generic Name Dose Route Start Last Admin Trade Name Freq PRN Reason Stop Dose Admin Acetaminophen 650 mg 09/23/18 15:59 Tylenol - PO Q4H PRN PAIN LEVEL 1-5 Albuterol/Ipratropium 1 amp 09/23/18 16:00 09/28/18 12:15 Duoneb - NEB 1 amp RQID [facility] Administration Alprazolam 0.5 mg 09/24/18 18:22 09/25/18 20:31 Xanax - PO 0.5 mg Q12H PRN Administration ANXIETY Aspirin 81 mg 09/24/18 10:00 09/28/18 09:45 Ecotrin - PO 81 mg DAILY [facility] Administration Atorvastatin Calcium 20 mg 09/23/18 22:00 09/27/18 21:50 Lipitor - PO 20 mg HS [facility] Administration Bupropion HCl 150 mg 09/24/18 10:00 09/28/18 09:46 Wellbutrin Xl - PO 150 mg DAILY [facility] Administration Carbidopa/Levodopa 1 each 09/23/18 16:00 09/28/18 05:54 Sinemet 25/100 - PO 1 each TID [facility] Administration Dextrose 25 gm 09/27/18 16:28 D50w (Vial) - IVPUSH PRN PRN HYPOGLYCEMIA Divalproex Sodium 250 mg 09/24/18 10:00 09/28/18 09:45 Depakote - PO 250 mg DAILY [facility] Administration Divalproex Sodium 125 mg 09/23/18 22:00 09/27/18 21:50 Depakote - PO 125 mg HS [facility] Administration Docusate Sodium 100 mg 09/23/18 22:00 09/27/18 21:50 Colace - PO 100 mg HS [facility] Administration Donepezil HCl 10 mg 09/24/18 10:00 09/28/18 09:51 Aricept - PO 10 mg DAILY [facility] Administration Enoxaparin Sodium 30 mg 09/24/18 10:00 09/28/18 09:45 Lovenox - SQ 30 mg DAILY [facility] Administration Furosemide 80 mg 09/26/18 14:00 09/28/18 06:09 Lasix Injection - IVPUSH 80 mg BID@0600,1400 [facility] Administration Hydralazine HCl 75 mg 09/28/18 12:47 Apresoline - PO TID [facility] Insulin Aspart 1 vial 09/23/18 16:30 09/28/18 11:39 Novolog Vial Sliding Scale - SQ Not Given TIDAC [facility] Protocol Labetalol HCl 400 mg 09/23/18 16:00 09/28/18 06:10 Normodyne - PO 400 mg TID [facility] Administration Levothyroxine Sodium 25 mcg 09/24/18 09:50 09/28/18 06:10 Synthroid - PO 25 mcg DAILY@0700 [facility] Administration Mirtazapine 30 mg 09/26/18 22:00 09/27/18 21:51 Remeron - PO 30 mg HS [facility] Administration Nifedipine 60 mg 09/24/18 13:37 09/28/18 09:48 Procardia Xl - PO 60 mg BID [facility] Administration Non-Formulary Medication 40 mg 09/24/18 10:00 09/28/18 09:47 Olmesartan Medoxomil PO 40 mg DAILY [facility] Administration Pancrelipase 1 cap 09/23/18 17:30 09/28/18 08:51 lEaine Sweeney 36,000 Units Capsule PO 1 cap TIDCM [facility] Administration Pantoprazole Sodium 40 mg 09/24/18 10:00 09/28/18 09:45 Protonix - PO 40 mg DAILY [facility] Administration Polyethylene Glycol 17 gm 09/27/18 16:45 09/28/18 09:45 Miralax (For Daily Use) - PO 17 grams DAILY [facility] Administration Potassium Chloride 20 meq 09/24/18 10:00 09/28/18 09:45 K-Dur - PO 20 meq DAILY [facility] Administration Senna 2 tab 09/28/18 10:28 Senna - PO HS PRN CONSTIPATION Tramadol HCl 50 mg 09/23/18 15:50 Ultram - PO TID PRN PAIN LEVEL 6-10 Impression 1. JASPER/CKD 2. fluid overload 3. HLD 4. shortness of breath 5. HTN 6. DM 7. proteinuria Impression - bp remains labile - cardio input appreciated, will keep hydralazine at 75 - monitor bp - proteinuria improved, cont arb - htn can explain renal findings - serologies negative from last admission - outpt follow up - monitor renal function - cont lasix
--- NOTE | 2018-09-28 14:34 | PN ---
Progress Note, Physician Chief Complaint: Cards FU Telem NSR No dyspnea. No chest pain History of Present Illness: 78-year-old female history of diabetes, hypertension, hyperlipidemia, Parkinson 's dementia, diverticulosis, GI bleed, normal left ventricular ejection fraction 05/03/2018, now presenting with shortness of breath, and JASPER was treated for acute on chronic diastolic heart failure. BP has been labile. - Current Medication List Current Medications: Active Medications Acetaminophen (Tylenol -) 650 mg PO Q4H PRN PRN Reason: PAIN LEVEL 1-5 Albuterol/Ipratropium (Duoneb -) 1 amp NEB RQID [facility] Last Admin: 09/28/18 12:15 Dose: 1 amp Alprazolam (Xanax -) 0.5 mg PO Q12H PRN PRN Reason: ANXIETY Last Admin: 09/25/18 20:31 Dose: 0.5 mg Aspirin (Ecotrin -) 81 mg PO DAILY [facility] Last Admin: 09/28/18 09:45 Dose: 81 mg Atorvastatin Calcium (Lipitor -) 20 mg PO HS [facility] Last Admin: 09/27/18 21:50 Dose: 20 mg Bupropion HCl (Wellbutrin Xl -) 150 mg PO DAILY [facility] Last Admin: 09/28/18 09:46 Dose: 150 mg Carbidopa/Levodopa (Sinemet 25/100 -) 1 each PO TID [facility] Last Admin: 09/28/18 13:55 Dose: 1 each Dextrose (D50w (Vial) -) 25 gm IVPUSH PRN PRN PRN Reason: HYPOGLYCEMIA Divalproex Sodium (Depakote -) 250 mg PO DAILY [facility] Last Admin: 09/28/18 09:45 Dose: 250 mg Divalproex Sodium (Depakote -) 125 mg PO HS [facility] Last Admin: 09/27/18 21:50 Dose: 125 mg Docusate Sodium (Colace -) 100 mg PO HS [facility] Last Admin: 09/27/18 21:50 Dose: 100 mg Donepezil HCl (Aricept -) 10 mg PO DAILY [facility] Last Admin: 09/28/18 09:51 Dose: 10 mg Enoxaparin Sodium (Lovenox -) 30 mg SQ DAILY [facility] Last Admin: 09/28/18 09:45 Dose: 30 mg Furosemide (Lasix Injection -) 80 mg IVPUSH BID@0600,1400 [facility] Last Admin: 09/28/18 13:57 Dose: 80 mg Hydralazine HCl (Apresoline -) 75 mg PO TID [facility] Last Admin: 09/28/18 13:57 Dose: 75 mg Insulin Aspart (Novolog Vial Sliding Scale -) 1 vial SQ TIDAC [facility]; Protocol Last Admin: 09/28/18 11:39 Dose: Not Given Labetalol HCl (Normodyne -) 400 mg PO TID [facility] Last Admin: 09/28/18 13:57 Dose: 400 mg Levothyroxine Sodium (Synthroid -) 25 mcg PO DAILY@0700 [facility] Last Admin: 09/28/18 06:10 Dose: 25 mcg Mirtazapine (Remeron -) 30 mg PO HS [facility] Last Admin: 09/27/18 21:51 Dose: 30 mg Nifedipine (Procardia Xl -) 60 mg PO BID [facility] Last Admin: 09/28/18 09:48 Dose: 60 mg Non-Formulary Medication (Olmesartan Medoxomil) 40 mg PO DAILY [facility] Last Admin: 09/28/18 09:47 Dose: 40 mg Pancrelipase (Creon Dr 36,000 Units Capsule) 1 cap PO TIDCM [facility] Last Admin: 09/28/18 12:30 Dose: 1 cap Pantoprazole Sodium (Protonix -) 40 mg PO DAILY [facility] Last Admin: 09/28/18 09:45 Dose: 40 mg Polyethylene Glycol (Miralax (For Daily Use) -) 17 gm PO DAILY [facility] Last Admin: 09/28/18 09:45 Dose: 17 grams Potassium Chloride (K-Dur -) 20 meq PO DAILY [facility] Last Admin: 09/28/18 09:45 Dose: 20 meq Senna (Senna -) 2 tab PO HS PRN PRN Reason: CONSTIPATION Tramadol HCl (Ultram -) 50 mg PO TID PRN PRN Reason: PAIN LEVEL 6-10 - Objective Vital Signs: Vital Signs Temperature 98 F 09/28/18 14:00 Pulse Rate 53 L 09/28/18 14:00 Respiratory Rate 13 09/28/18 14:00 Blood Pressure 137/44 L 09/28/18 14:00 O2 Sat by Pulse Oximetry (%) 97 09/28/18 09:00 Constitutional: Yes: Well Nourished, No Distress Eyes: Yes: Conjunctiva Clear HENT: Yes: Atraumatic, Normocephalic Neck: Yes: Supple, Trachea Midline Cardiovascular: Yes: Regular Rate and Rhythm Respiratory: Yes: Diminished Gastrointestinal: Yes: Normal Bowel Sounds, Soft Edema: No Labs: CBC, BMP 09/27/18 05:35 09/27/18 05:35 Problem List - Problems (1) CHF (congestive heart failure) Code(s): I50.9 - HEART FAILURE, UNSPECIFIED Qualifiers: (2) HTN (hypertension) Code(s): I10 - ESSENTIAL (PRIMARY) HYPERTENSION Assessment/Plan BP remains stable. Consider switching to oral diuretics.
[2018-09-28] MEDS ORDERED: PT OWN MED DRAWER 7, Y5N ONE (17:55)
[2018-09-28] MEDS: ALPRAZolam 0.25 MG TABLET PO PRN (21:09)
[2018-09-28] MEDS: DOCUSATE SODIUM 100 MG CAPSULE (FP) PO SCH (21:10)
[2018-09-28] MEDS: MIRTAZAPINE 15 MG TABLET (FP) PO SCH (21:10)
[2018-09-28] MEDS: ATORVASTATIN CA 20 MG TABLET (FP) PO SCH (21:10)
[2018-09-28] MEDS: DIVALPROEX SODIUM 125 MG TABLET E.C. PO SCH (21:22)
[2018-09-29] MEDS: hydrALAZINE HCL 50 MG TABLET (FP) PO SCH ×3 (05:47→21:27)
[2018-09-29] MEDS: FUROSEMIDE 40 MG TABLET (FP) PO SCH ×2 (05:47→14:56)
[2018-09-29] MEDS: LABETALOL HCL 200 MG TABLET (FP) PO SCH ×3 (05:47→21:27)
[2018-09-29] MEDS: CARBIDOPA/LEVODOPA 25/100 TABLET (FP) PO SCH ×3 (05:48→21:49)
[2018-09-29] MEDS: INSULIN SLIDING SCALE (NOVOLOG) 1 VIAL SQ SCH ×3 (06:05→18:24)
[2018-09-29] MEDS: LEVOTHYROXINE NA 25 MCG TABLET (FP) PO SCH (06:05)
[2018-09-29] MEDS: LIPASE/PROTEASE/AMYLASE 36,000 UNIT CAPSULE PO SCH ×3 (08:43→18:24)
[2018-09-29] MEDS: PANTOPRAZOLE 40 MG TABLET (FP) PO SCH (10:42)
[2018-09-29] MEDS: ASPIRIN COATED 81 MG TABLET.EC PO SCH (10:42)
[2018-09-29] MEDS: ENOXAPARIN NA (PORCINE) 30 MG/0.3 ML DISP.SYRIN SQ SCH (10:42)
[2018-09-29] MEDS: POTASSIUM CHLORIDE TABS 20 MEQ TABLET.ER (FP) PO SCH (10:42)
[2018-09-29] MEDS: DONEPEZIL HCL 10 MG TABLET (FP) PO SCH (10:44)
[2018-09-29] MEDS: NIFEdipine E.R 60 MG TABLET (UD) PO SCH ×2 (10:44→21:29)
[2018-09-29] MEDS: DIVALPROEX SODIUM 250 MG TABLET E.C. PO SCH (10:44)
[2018-09-29] MEDS: PATIENT'S OWN MEDICATION (NON-FORMULARY) (Olmesartan Medoxomil 40 MG) PO SCH (10:45)
[2018-09-29] MEDS: POLYETHYLENE GLYCOL 3350 119 GM BTL PO SCH (10:45)
--- NOTE | 2018-09-29 11:45 | PN ---
Progress Note, Physician Chief Complaint: CHF exacerbation HTN Hypothyroidism Anemia History of Present Illness: NAD feels better wants to go home switched to oral diuretics Labs for today are pending - Current Medication List Current Medications: Active Medications Acetaminophen (Tylenol -) 650 mg PO Q4H PRN PRN Reason: PAIN LEVEL 1-5 Alprazolam (Xanax -) 0.5 mg PO Q12H PRN PRN Reason: ANXIETY Last Admin: 09/28/18 21:09 Dose: 0.5 mg Aspirin (Ecotrin -) 81 mg PO DAILY [facility] Last Admin: 09/29/18 10:42 Dose: 81 mg Atorvastatin Calcium (Lipitor -) 20 mg PO HS [facility] Last Admin: 09/28/18 21:10 Dose: 20 mg Bupropion HCl (Wellbutrin Xl -) 150 mg PO DAILY [facility] Last Admin: 09/29/18 10:44 Dose: 150 mg Carbidopa/Levodopa (Sinemet 25/100 -) 1 each PO TID [facility] Last Admin: 09/29/18 05:48 Dose: 1 each Dextrose (D50w (Vial) -) 25 gm IVPUSH PRN PRN PRN Reason: HYPOGLYCEMIA Divalproex Sodium (Depakote -) 250 mg PO DAILY [facility] Last Admin: 09/29/18 10:44 Dose: 250 mg Divalproex Sodium (Depakote -) 125 mg PO HS [facility] Last Admin: 09/28/18 21:22 Dose: 125 mg Docusate Sodium (Colace -) 100 mg PO HS [facility] Last Admin: 09/28/18 21:10 Dose: 100 mg Donepezil HCl (Aricept -) 10 mg PO DAILY [facility] Last Admin: 09/29/18 10:44 Dose: 10 mg Enoxaparin Sodium (Lovenox -) 30 mg SQ DAILY [facility] Last Admin: 09/29/18 10:42 Dose: 30 mg Furosemide (Lasix -) 80 mg PO BID@0600,1400 [facility] Last Admin: 09/29/18 05:47 Dose: 80 mg Hydralazine HCl (Apresoline -) 75 mg PO TID [facility] Last Admin: 09/29/18 05:47 Dose: 75 mg Insulin Aspart (Novolog Vial Sliding Scale -) 1 vial SQ TIDAC [facility]; Protocol Last Admin: 09/29/18 06:05 Dose: Not Given Labetalol HCl (Normodyne -) 400 mg PO TID [facility] Last Admin: 09/29/18 05:47 Dose: 400 mg Levothyroxine Sodium (Synthroid -) 25 mcg PO DAILY@0700 [facility] Last Admin: 09/29/18 06:05 Dose: 25 mcg Mirtazapine (Remeron -) 30 mg PO HS [facility] Last Admin: 09/28/18 21:10 Dose: 30 mg Nifedipine (Procardia Xl -) 60 mg PO BID [facility] Last Admin: 09/29/18 10:44 Dose: 60 mg Non-Formulary Medication (Olmesartan Medoxomil) 40 mg PO DAILY [facility] Last Admin: 09/29/18 10:45 Dose: 40 mg Pancrelipase (Creon Dr 36,000 Units Capsule) 1 cap PO TIDCM [facility] Last Admin: 09/29/18 08:43 Dose: 1 cap Pantoprazole Sodium (Protonix -) 40 mg PO DAILY [facility] Last Admin: 09/29/18 10:42 Dose: 40 mg Polyethylene Glycol (Miralax (For Daily Use) -) 17 gm PO DAILY [facility] Last Admin: 09/29/18 10:45 Dose: 17 grams Potassium Chloride (K-Dur -) 20 meq PO DAILY [facility] Last Admin: 09/29/18 10:42 Dose: 20 meq Senna (Senna -) 2 tab PO HS PRN PRN Reason: CONSTIPATION Last Admin: 09/28/18 21:09 Dose: 2 tab Tramadol HCl (Ultram -) 50 mg PO TID PRN PRN Reason: PAIN LEVEL 6-10 - Objective Vital Signs: Vital Signs Temperature 97.9 F 09/29/18 06:00 Pulse Rate 53 L 09/29/18 06:00 Respiratory Rate 14 09/29/18 06:00 Blood Pressure 181/43 H 09/29/18 06:00 O2 Sat by Pulse Oximetry (%) 97 09/28/18 21:00 Constitutional: Yes: Well Nourished, No Distress, Calm Cardiovascular: Yes: Regular Rate and Rhythm Respiratory: Yes: Regular Gastrointestinal: Yes: Normal Bowel Sounds, Soft Genitourinary: Yes: WNL Musculoskeletal: Yes: Muscle Weakness Extremities: Yes: WNL Edema: Yes Edema: LLE: Trace, RLE: Trace Peripheral Pulses WNL: Yes Neurological: Yes: Alert, Oriented Psychiatric: Yes: Alert, Oriented Labs: CBC, BMP 09/27/18 05:35 09/27/18 05:35 Problem List - Problems (1) JASPER (acute kidney injury) Assessment/Plan: -nephrology consult -monitor trend Code(s): N17.9 - ACUTE KIDNEY FAILURE, UNSPECIFIED (2) Acute on chronic diastolic (congestive) heart failure Assessment/Plan: -Cardiology consult -Tele monitoring -Diruesis -low sodium diabetic diet -daily weights Code(s): I50.33 - ACUTE ON CHRONIC DIASTOLIC (CONGESTIVE) HEART FAILURE (3) Anemia Assessment/Plan: -chronic -hematology consult -[place] transfusion for Hg<7.0 to avoid fluid overload -Iron% low -B12 normal -TSH elevated -stool OB negative -ferrous sulfate 1 tab po daily Code(s): D64.9 - ANEMIA, UNSPECIFIED (4) Diabetes Assessment/Plan: -BGM AC HS -Diabetic low sodium diet -Decreased po intake -d/c levemir and monitor for now -ISS -D50PRN for symptomatic hypoglycemia below 70 mg/dl Code(s): E11.9 - TYPE 2 DIABETES MELLITUS WITHOUT COMPLICATIONS (5) HTN (hypertension) Assessment/Plan: -BP has been stable -Cardiology consult appreciated -Tele monitoring -Diruesis -low sodium diabetic diet -Needs Renal biopsy outpatient Code(s): I10 - ESSENTIAL (PRIMARY) HYPERTENSION (6) SOB (shortness of breath) Assessment/Plan: -Pulmonary consult -2/2 to CHF -Bronchodilators for immediate relief -Nasal O2 PRN, keep Spo2 >90% -diuresis Code(s): R06.02 - SHORTNESS OF BREATH (7) Hypothyroidism Assessment/Plan: -started on Levothyroxine 25 mcg po daily -repeat thyroid profile in 6 weeks Code(s): E03.9 - HYPOTHYROIDISM, UNSPECIFIED Assessment/Plan see problem list
--- NOTE | 2018-09-29 12:21 | PN ---
Progress Note, Physician History of Present Illness: Pt seen and examined at bedside. She is awake and alert. She denies shortness of breath. - Current Medication List Current Medications: Active Medications Acetaminophen (Tylenol -) 650 mg PO Q4H PRN PRN Reason: PAIN LEVEL 1-5 Alprazolam (Xanax -) 0.5 mg PO Q12H PRN PRN Reason: ANXIETY Last Admin: 09/28/18 21:09 Dose: 0.5 mg Aspirin (Ecotrin -) 81 mg PO DAILY [facility] Last Admin: 09/29/18 10:42 Dose: 81 mg Atorvastatin Calcium (Lipitor -) 20 mg PO HS [facility] Last Admin: 09/28/18 21:10 Dose: 20 mg Bupropion HCl (Wellbutrin Xl -) 150 mg PO DAILY [facility] Last Admin: 09/29/18 10:44 Dose: 150 mg Carbidopa/Levodopa (Sinemet 25/100 -) 1 each PO TID [facility] Last Admin: 09/29/18 05:48 Dose: 1 each Dextrose (D50w (Vial) -) 25 gm IVPUSH PRN PRN PRN Reason: HYPOGLYCEMIA Divalproex Sodium (Depakote -) 250 mg PO DAILY [facility] Last Admin: 09/29/18 10:44 Dose: 250 mg Divalproex Sodium (Depakote -) 125 mg PO HS [facility] Last Admin: 09/28/18 21:22 Dose: 125 mg Docusate Sodium (Colace -) 100 mg PO HS [facility] Last Admin: 09/28/18 21:10 Dose: 100 mg Donepezil HCl (Aricept -) 10 mg PO DAILY [facility] Last Admin: 09/29/18 10:44 Dose: 10 mg Enoxaparin Sodium (Lovenox -) 30 mg SQ DAILY [facility] Last Admin: 09/29/18 10:42 Dose: 30 mg Furosemide (Lasix -) 80 mg PO BID@0600,1400 [facility] Last Admin: 09/29/18 05:47 Dose: 80 mg Hydralazine HCl (Apresoline -) 75 mg PO TID [facility] Last Admin: 09/29/18 05:47 Dose: 75 mg Insulin Aspart (Novolog Vial Sliding Scale -) 1 vial SQ TIDAC [facility]; Protocol Last Admin: 09/29/18 11:54 Dose: Not Given Labetalol HCl (Normodyne -) 400 mg PO TID [facility] Last Admin: 09/29/18 05:47 Dose: 400 mg Levothyroxine Sodium (Synthroid -) 25 mcg PO DAILY@0700 [facility] Last Admin: 09/29/18 06:05 Dose: 25 mcg Mirtazapine (Remeron -) 30 mg PO HS [facility] Last Admin: 09/28/18 21:10 Dose: 30 mg Nifedipine (Procardia Xl -) 60 mg PO BID [facility] Last Admin: 09/29/18 10:44 Dose: 60 mg Non-Formulary Medication (Olmesartan Medoxomil) 40 mg PO DAILY [facility] Last Admin: 09/29/18 10:45 Dose: 40 mg Pancrelipase (Creon Dr 36,000 Units Capsule) 1 cap PO TIDCM [facility] Last Admin: 09/29/18 08:43 Dose: 1 cap Pantoprazole Sodium (Protonix -) 40 mg PO DAILY [facility] Last Admin: 09/29/18 10:42 Dose: 40 mg Polyethylene Glycol (Miralax (For Daily Use) -) 17 gm PO DAILY [facility] Last Admin: 09/29/18 10:45 Dose: 17 grams Potassium Chloride (K-Dur -) 20 meq PO DAILY [facility] Last Admin: 09/29/18 10:42 Dose: 20 meq Senna (Senna -) 2 tab PO HS PRN PRN Reason: CONSTIPATION Last Admin: 09/28/18 21:09 Dose: 2 tab Tramadol HCl (Ultram -) 50 mg PO TID PRN PRN Reason: PAIN LEVEL 6-10 - Objective Vital Signs: Vital Signs Temperature 97.9 F 09/29/18 06:00 Pulse Rate 53 L 09/29/18 06:00 Respiratory Rate 14 09/29/18 06:00 Blood Pressure 181/43 H 09/29/18 06:00 O2 Sat by Pulse Oximetry (%) 97 09/28/18 21:00 Constitutional: Yes: Calm Eyes: Yes: Conjunctiva Clear HENT: Yes: Atraumatic Cardiovascular: Yes: S1, S2 Respiratory: Yes: CTA Bilaterally Gastrointestinal: Yes: Soft Genitourinary: Yes: WNL Musculoskeletal: Yes: WNL Edema: Yes Edema: LLE: 1+, RLE: 1+ Neurological: Yes: Oriented Psychiatric: Yes: Oriented Labs: CBC, BMP 09/27/18 05:35 09/27/18 05:35 Problem List - Problems (1) CHF (congestive heart failure) Code(s): I50.9 - HEART FAILURE, UNSPECIFIED Qualifiers: (2) CKD (chronic kidney disease) Code(s): N18.9 - CHRONIC KIDNEY DISEASE, UNSPECIFIED Assessment/Plan Current Medications Generic Name Dose Route Start Last Admin Trade Name Freq PRN Reason Stop Dose Admin Acetaminophen 650 mg 09/23/18 15:59 Tylenol - PO Q4H PRN PAIN LEVEL 1-5 Alprazolam 0.5 mg 09/24/18 18:22 09/28/18 21:09 Xanax - PO 0.5 mg Q12H PRN Administration ANXIETY Aspirin 81 mg 09/24/18 10:00 09/29/18 10:42 Ecotrin - PO 81 mg DAILY [facility] Administration Atorvastatin Calcium 20 mg 09/23/18 22:00 09/28/18 21:10 Lipitor - PO 20 mg HS [facility] Administration Bupropion HCl 150 mg 09/24/18 10:00 09/29/18 10:44 Wellbutrin Xl - PO 150 mg DAILY [facility] Administration Carbidopa/Levodopa 1 each 09/23/18 16:00 09/29/18 05:48 Sinemet 25/100 - PO 1 each TID [facility] Administration Dextrose 25 gm 09/27/18 16:28 D50w (Vial) - IVPUSH PRN PRN HYPOGLYCEMIA Divalproex Sodium 250 mg 09/24/18 10:00 09/29/18 10:44 Depakote - PO 250 mg DAILY [facility] Administration Divalproex Sodium 125 mg 09/23/18 22:00 09/28/18 21:22 Depakote - PO 125 mg HS [facility] Administration Docusate Sodium 100 mg 09/23/18 22:00 09/28/18 21:10 Colace - PO 100 mg HS [facility] Administration Donepezil HCl 10 mg 09/24/18 10:00 09/29/18 10:44 Aricept - PO 10 mg DAILY [facility] Administration Enoxaparin Sodium 30 mg 09/24/18 10:00 09/29/18 10:42 Lovenox - SQ 30 mg DAILY [facility] Administration Furosemide 80 mg 09/29/18 06:00 09/29/18 05:47 Lasix - PO 80 mg BID@0600,1400 [facility] Administration Hydralazine HCl 75 mg 09/28/18 13:15 09/29/18 05:47 Apresoline - PO 75 mg TID [facility] Administration Insulin Aspart 1 vial 09/23/18 16:30 09/29/18 11:54 Novolog Vial Sliding Scale - SQ Not Given TIDAC [facility] Protocol Labetalol HCl 400 mg 09/23/18 16:00 09/29/18 05:47 Normodyne - PO 400 mg TID [facility] Administration Levothyroxine Sodium 25 mcg 09/24/18 09:50 09/29/18 06:05 Synthroid - PO 25 mcg DAILY@0700 [facility] Administration Mirtazapine 30 mg 09/26/18 22:00 09/28/18 21:10 Remeron - PO 30 mg HS [facility] Administration Nifedipine 60 mg 09/24/18 13:37 09/29/18 10:44 Procardia Xl - PO 60 mg BID [facility] Administration Non-Formulary Medication 40 mg 09/24/18 10:00 09/29/18 10:45 Olmesartan Medoxomil PO 40 mg DAILY [facility] Administration Pancrelipase 1 cap 09/23/18 17:30 09/29/18 08:43 Credyana Sweeney 36,000 Units Capsule PO 1 cap TIDCM [facility] Administration Pantoprazole Sodium 40 mg 09/24/18 10:00 09/29/18 10:42 Protonix - PO 40 mg DAILY [facility] Administration Polyethylene Glycol 17 gm 09/27/18 16:45 09/29/18 10:45 Miralax (For Daily Use) - PO 17 grams DAILY [facility] Administration Potassium Chloride 20 meq 09/24/18 10:00 09/29/18 10:42 K-Dur - PO 20 meq DAILY [facility] Administration Senna 2 tab 09/28/18 10:28 09/28/18 21:09 Senna - PO 2 tab HS PRN Administration CONSTIPATION Tramadol HCl 50 mg 09/23/18 15:50 Ultram - PO TID PRN PAIN LEVEL 6-10 Impression 1. JASPER/CKD 2. fluid overload 3. HLD 4. shortness of breath 5. HTN 6. DM 7. proteinuria Impression - cont to monitor bp - lasix PO - cont arb for proteinuria - htn can explain renal findings - outpt follow up
[2018-09-29 13:11] LABS: BASO % 0.6 % (0-2.0); EOS % 4.4 % (0-4.5); HEMATOCRIT 23.9 % (32.4-45.2); LYMPH % 17.8 % (8-40); MCH 26.8 pg (25.7-33.7); MCHC 33.6 g/dl (32.0-36.0); MEAN CELL VOLUME 79.8 fl (80-96); MEAN PLT VOLUME 7.4 fl (7.5-11.1); MONO % 12.3 % (3.8-10.2); NEUT % 64.9 % (42.8-82.8); RDW 18.2 % (11.6-15.6); WHITE BLOOD COUNT 6.5 K/mm3 (4.0-10.0)
--- NOTE | 2018-09-29 13:12 | PN ---
Progress Note (short form) - Note Progress Note: PULMONARY Appears more tachypneic today. Saturating well on room air. Vital Signs Period Temp Pulse Resp BP Sys/East Pulse Ox Last 24 Hr 97.9 F-98.4 F 53-55 13-17 137-181/36-49 97 Intake & Output 09/26/18 09/27/18 09/28/18 09/29/18 23:59 23:59 23:59 23:59 Intake Total 300 360 780 Balance 300 360 780 Weight 63.6 kg 64.138 kg 64.138 kg 63.458 kg Gen: more tachypneic at rest Heart: RRR Lung: decreased breath sounds at the bases Abd: soft, nontender Ext: + edema Active Medications Acetaminophen (Tylenol -) 650 mg PO Q4H PRN PRN Reason: PAIN LEVEL 1-5 Alprazolam (Xanax -) 0.5 mg PO Q12H PRN PRN Reason: ANXIETY Last Admin: 09/28/18 21:09 Dose: 0.5 mg Aspirin (Ecotrin -) 81 mg PO DAILY [facility] Last Admin: 09/29/18 10:42 Dose: 81 mg Atorvastatin Calcium (Lipitor -) 20 mg PO HS [facility] Last Admin: 09/28/18 21:10 Dose: 20 mg Bupropion HCl (Wellbutrin Xl -) 150 mg PO DAILY [facility] Last Admin: 09/29/18 10:44 Dose: 150 mg Carbidopa/Levodopa (Sinemet 25/100 -) 1 each PO TID [facility] Last Admin: 09/29/18 05:48 Dose: 1 each Dextrose (D50w (Vial) -) 25 gm IVPUSH PRN PRN PRN Reason: HYPOGLYCEMIA Divalproex Sodium (Depakote -) 250 mg PO DAILY [facility] Last Admin: 09/29/18 10:44 Dose: 250 mg Divalproex Sodium (Depakote -) 125 mg PO HS [facility] Last Admin: 09/28/18 21:22 Dose: 125 mg Docusate Sodium (Colace -) 100 mg PO HS [facility] Last Admin: 09/28/18 21:10 Dose: 100 mg Donepezil HCl (Aricept -) 10 mg PO DAILY [facility] Last Admin: 09/29/18 10:44 Dose: 10 mg Enoxaparin Sodium (Lovenox -) 30 mg SQ DAILY [facility] Last Admin: 09/29/18 10:42 Dose: 30 mg Furosemide (Lasix -) 80 mg PO BID@0600,1400 [facility] Last Admin: 09/29/18 05:47 Dose: 80 mg Hydralazine HCl (Apresoline -) 75 mg PO TID [facility] Last Admin: 09/29/18 05:47 Dose: 75 mg Insulin Aspart (Novolog Vial Sliding Scale -) 1 vial SQ TIDAC [facility]; Protocol Last Admin: 09/29/18 11:54 Dose: Not Given Labetalol HCl (Normodyne -) 400 mg PO TID [facility] Last Admin: 09/29/18 05:47 Dose: 400 mg Levothyroxine Sodium (Synthroid -) 25 mcg PO DAILY@0700 [facility] Last Admin: 09/29/18 06:05 Dose: 25 mcg Mirtazapine (Remeron -) 30 mg PO HS [facility] Last Admin: 09/28/18 21:10 Dose: 30 mg Nifedipine (Procardia Xl -) 60 mg PO BID [facility] Last Admin: 09/29/18 10:44 Dose: 60 mg Non-Formulary Medication (Olmesartan Medoxomil) 40 mg PO DAILY [facility] Last Admin: 09/29/18 10:45 Dose: 40 mg Pancrelipase (Creon Dr 36,000 Units Capsule) 1 cap PO TIDCM [facility] Last Admin: 09/29/18 08:43 Dose: 1 cap Pantoprazole Sodium (Protonix -) 40 mg PO DAILY [facility] Last Admin: 09/29/18 10:42 Dose: 40 mg Polyethylene Glycol (Miralax (For Daily Use) -) 17 gm PO DAILY [facility] Last Admin: 09/29/18 10:45 Dose: 17 grams Potassium Chloride (K-Dur -) 20 meq PO DAILY [facility] Last Admin: 09/29/18 10:42 Dose: 20 meq Senna (Senna -) 2 tab PO HS PRN PRN Reason: CONSTIPATION Last Admin: 09/28/18 21:09 Dose: 2 tab Tramadol HCl (Ultram -) 50 mg PO TID PRN PRN Reason: PAIN LEVEL 6-10 A/P Acute on Chronic Diastolic Heart Failure Poorly Controlled HTN Pulmonary HTN Acute on Chronic Renal Failure DM Hyperlipidemia Parkinsons Anemia - continue lasix - monitor urine output, creatinine - daily weights - O2 to keep Spo2 >90% - beta curtis - BP control - DVT prophylaxis Problem List - Problems (1) Acute on chronic diastolic (congestive) heart failure Code(s): I50.33 - ACUTE ON CHRONIC DIASTOLIC (CONGESTIVE) HEART FAILURE (2) CKD (chronic kidney disease) Code(s): N18.9 - CHRONIC KIDNEY DISEASE, UNSPECIFIED (3) Diabetes Code(s): E11.9 - TYPE 2 DIABETES MELLITUS WITHOUT COMPLICATIONS (4) HLD (hyperlipidemia) Code(s): E78.5 - HYPERLIPIDEMIA, UNSPECIFIED (5) HTN (hypertension) Code(s): I10 - ESSENTIAL (PRIMARY) HYPERTENSION (6) Pleural effusion Code(s): J90 - PLEURAL EFFUSION, NOT ELSEWHERE CLASSIFIED
[2018-09-29 13:33] LABS: ALBUMIN 2.8 g/dl (3.4-5.0); ALK PHOS 94 U/L (45-117); ANION GAP 3 MMOL/L (8-16); BILIRUBIN,TOTAL 0.3 mg/dL (0.2-1); BLOOD UREA NITROGEN 32.2 mg/dL (7-18); CALCIUM 8.9 mg/dL (8.5-10.1); CHLORIDE 102 mmol/L (98-107); CO2 37 mmol/L (21-32); CREATININE 1.7 mg/dL (0.55-1.3); GLUCOSE,RANDOM 146 mg/dL (74-106); POTASSIUM 4.3 mmol/L (3.5-5.1); SGOT/AST 10 U/L (15-37); SGPT/ALT < 6 U/L (13-61); SODIUM 141 mmol/L (136-145); TOT PROT 6.2 g/dl (6.4-8.2)
[2018-09-29 13:36] LABS: PLATELET COUNT 379 K/MM3 (134-434)
--- NOTE | 2018-09-29 15:36 | PN ---
Progress Note, Physician Chief Complaint: Cards FU Telem NSR No dyspnea. No chest pain History of Present Illness: 78-year-old female history of diabetes, hypertension, hyperlipidemia, Parkinson 's dementia, diverticulosis, GI bleed, normal left ventricular ejection fraction 05/03/2018, now presenting with shortness of breath, and JASPER was treated for acute on chronic diastolic heart failure. BP has been labile. - Current Medication List Current Medications: Active Medications Acetaminophen (Tylenol -) 650 mg PO Q4H PRN PRN Reason: PAIN LEVEL 1-5 Alprazolam (Xanax -) 0.5 mg PO Q12H PRN PRN Reason: ANXIETY Last Admin: 09/28/18 21:09 Dose: 0.5 mg Aspirin (Ecotrin -) 81 mg PO DAILY [facility] Last Admin: 09/29/18 10:42 Dose: 81 mg Atorvastatin Calcium (Lipitor -) 20 mg PO HS [facility] Last Admin: 09/28/18 21:10 Dose: 20 mg Bupropion HCl (Wellbutrin Xl -) 150 mg PO DAILY [facility] Last Admin: 09/29/18 10:44 Dose: 150 mg Carbidopa/Levodopa (Sinemet 25/100 -) 1 each PO TID [facility] Last Admin: 09/29/18 14:58 Dose: 1 each Dextrose (D50w (Vial) -) 25 gm IVPUSH PRN PRN PRN Reason: HYPOGLYCEMIA Divalproex Sodium (Depakote -) 250 mg PO DAILY [facility] Last Admin: 09/29/18 10:44 Dose: 250 mg Divalproex Sodium (Depakote -) 125 mg PO HS [facility] Last Admin: 09/28/18 21:22 Dose: 125 mg Docusate Sodium (Colace -) 100 mg PO HS [facility] Last Admin: 09/28/18 21:10 Dose: 100 mg Donepezil HCl (Aricept -) 10 mg PO DAILY [facility] Last Admin: 09/29/18 10:44 Dose: 10 mg Enoxaparin Sodium (Lovenox -) 30 mg SQ DAILY [facility] Last Admin: 09/29/18 10:42 Dose: 30 mg Furosemide (Lasix -) 80 mg PO BID@0600,1400 [facility] Last Admin: 09/29/18 14:56 Dose: 80 mg Hydralazine HCl (Apresoline -) 75 mg PO TID [facility] Last Admin: 09/29/18 14:56 Dose: 75 mg Insulin Aspart (Novolog Vial Sliding Scale -) 1 vial SQ TIDAC [facility]; Protocol Last Admin: 09/29/18 11:54 Dose: Not Given Labetalol HCl (Normodyne -) 400 mg PO TID [facility] Last Admin: 09/29/18 14:57 Dose: 400 mg Levothyroxine Sodium (Synthroid -) 25 mcg PO DAILY@0700 [facility] Last Admin: 09/29/18 06:05 Dose: 25 mcg Mirtazapine (Remeron -) 30 mg PO HS [facility] Last Admin: 09/28/18 21:10 Dose: 30 mg Nifedipine (Procardia Xl -) 60 mg PO BID [facility] Last Admin: 09/29/18 10:44 Dose: 60 mg Non-Formulary Medication (Olmesartan Medoxomil) 40 mg PO DAILY [facility] Last Admin: 09/29/18 10:45 Dose: 40 mg Pancrelipase (Creon Dr 36,000 Units Capsule) 1 cap PO TIDCM [facility] Last Admin: 09/29/18 12:15 Dose: 1 cap Pantoprazole Sodium (Protonix -) 40 mg PO DAILY [facility] Last Admin: 09/29/18 10:42 Dose: 40 mg Polyethylene Glycol (Miralax (For Daily Use) -) 17 gm PO DAILY [facility] Last Admin: 09/29/18 10:45 Dose: 17 grams Potassium Chloride (K-Dur -) 20 meq PO DAILY [facility] Last Admin: 09/29/18 10:42 Dose: 20 meq Senna (Senna -) 2 tab PO HS PRN PRN Reason: CONSTIPATION Last Admin: 09/28/18 21:09 Dose: 2 tab Tramadol HCl (Ultram -) 50 mg PO TID PRN PRN Reason: PAIN LEVEL 6-10 - Objective Vital Signs: Vital Signs Temperature 98.1 F 09/29/18 13:45 Pulse Rate 62 09/29/18 15:26 Respiratory Rate 14 09/29/18 15:26 Blood Pressure 153/52 L 09/29/18 15:26 O2 Sat by Pulse Oximetry (%) 96 09/29/18 09:00 Constitutional: Yes: Well Nourished, No Distress Eyes: Yes: Conjunctiva Clear HENT: Yes: Atraumatic, Normocephalic Neck: Yes: Supple, Trachea Midline Cardiovascular: Yes: Regular Rate and Rhythm, S1, S2. No: JVD Respiratory: Yes: Regular, Diminished Edema: No Labs: CBC, BMP 09/29/18 12:38 09/29/18 12:38 Problem List - Problems (1) CHF (congestive heart failure) Code(s): I50.9 - HEART FAILURE, UNSPECIFIED Qualifiers: (2) HTN (hypertension) Code(s): I10 - ESSENTIAL (PRIMARY) HYPERTENSION Assessment/Plan BP remains stable. continue present therapy will see as needed,
[2018-09-29] MEDS: ATORVASTATIN CA 20 MG TABLET (FP) PO SCH (21:28)
[2018-09-29] MEDS: DOCUSATE SODIUM 100 MG CAPSULE (FP) PO SCH (21:28)
[2018-09-29] MEDS: MIRTAZAPINE 15 MG TABLET (FP) PO SCH (21:29)
[2018-09-29] MEDS: DIVALPROEX SODIUM 125 MG TABLET E.C. PO SCH (21:31)
[2018-09-30] MEDS: CARBIDOPA/LEVODOPA 25/100 TABLET (FP) PO SCH ×3 (05:34→21:34)
[2018-09-30] MEDS: FUROSEMIDE 40 MG TABLET (FP) PO SCH ×2 (05:36→15:10)
[2018-09-30] MEDS: hydrALAZINE HCL 50 MG TABLET (FP) PO SCH ×3 (05:36→21:31)
[2018-09-30] MEDS: LABETALOL HCL 200 MG TABLET (FP) PO SCH ×3 (05:36→21:32)
[2018-09-30] MEDS: INSULIN SLIDING SCALE (NOVOLOG) 1 VIAL SQ SCH ×3 (06:12→17:12)
[2018-09-30] MEDS: LEVOTHYROXINE NA 25 MCG TABLET (FP) PO SCH (06:12)
[2018-09-30 06:36] LABS: BLOOD UREA NITROGEN 33.7 mg/dL (7-18); CALCIUM 8.6 mg/dL (8.5-10.1); CREATININE 1.7 mg/dL (0.55-1.3); POTASSIUM 4.4 mmol/L (3.5-5.1)
[2018-09-30] MEDS: LIPASE/PROTEASE/AMYLASE 36,000 UNIT CAPSULE PO SCH ×3 (09:30→18:17)
[2018-09-30] MEDS ORDERED: IRON SUCROSE INJECTION 200 MG in SODIUM CHLORIDE 90 ML IVPB ONE (10:00)
[2018-09-30] MEDS: DONEPEZIL HCL 10 MG TABLET (FP) PO SCH (10:54)
[2018-09-30] MEDS: POTASSIUM CHLORIDE TABS 20 MEQ TABLET.ER (FP) PO SCH (10:54)
[2018-09-30] MEDS: FERROUS SO4 325 MG TABLET (FP) PO SCH (10:54)
[2018-09-30] MEDS: DIVALPROEX SODIUM 250 MG TABLET E.C. PO SCH (10:54)
[2018-09-30] MEDS: ASPIRIN COATED 81 MG TABLET.EC PO SCH (10:54)
[2018-09-30] MEDS: ENOXAPARIN NA (PORCINE) 30 MG/0.3 ML DISP.SYRIN SQ SCH (10:55)
[2018-09-30] MEDS: POLYETHYLENE GLYCOL 3350 119 GM BTL PO SCH (10:55)
[2018-09-30] MEDS: PANTOPRAZOLE 40 MG TABLET (FP) PO SCH (10:56)
[2018-09-30] MEDS: PATIENT'S OWN MEDICATION (NON-FORMULARY) (Olmesartan Medoxomil 40 MG) PO SCH (10:56)
[2018-09-30] MEDS: NIFEdipine E.R 60 MG TABLET (UD) PO SCH ×2 (11:00→21:33)
--- NOTE | 2018-09-30 11:24 | DS ---
Physical Examination Vital Signs: Vital Signs Temperature 97.7 F 09/30/18 06:23 Pulse Rate 58 L 09/30/18 06:23 Respiratory Rate 14 09/30/18 06:23 Blood Pressure 171/47 H 09/30/18 06:23 O2 Sat by Pulse Oximetry (%) 98 09/30/18 09:00 Findings/Remarks: feels well wants to go home no complaints Cardiovascular: Yes: S1, S2 Respiratory: Yes: Regular, CTA Bilaterally Gastrointestinal: Yes: Normal Bowel Sounds, Soft Neurological: Yes: Alert, Oriented Labs: CBC, BMP 09/29/18 12:38 09/30/18 05:20 Discharge Summary Reason For Visit: CHF Current Active Problems CHF (congestive heart failure) (Acute) CHF exacerbation (Acute) Hypothyroidism (Acute) Hospital Course: Problems (1) JASPER (acute kidney injury) Assessment/Plan: -nephrology consult noted -monitor trend Code(s): N17.9 - ACUTE KIDNEY FAILURE, UNSPECIFIED (2) Acute on chronic diastolic (congestive) heart failure Assessment/Plan: -Cardiology consult -Tele monitoring -Diruesis -low sodium diabetic diet -daily weights Code(s): I50.33 - ACUTE ON CHRONIC DIASTOLIC (CONGESTIVE) HEART FAILURE (3) Anemia Assessment/Plan: -chronic -hematology consult -Steinauer transfusion for Hg<7.0 to avoid fluid overload -Iron% low -B12 normal -TSH elevated -stool OB negative -ferrous sulfate 1 tab po daily Code(s): D64.9 - ANEMIA, UNSPECIFIED (4) Diabetes Assessment/Plan: -BGM AC HS -Diabetic low sodium diet -Decreased po intake -d/c levemir and monitor for now -ISS -D50PRN for symptomatic hypoglycemia below 70 mg/dl Code(s): E11.9 - TYPE 2 DIABETES MELLITUS WITHOUT COMPLICATIONS (5) HTN (hypertension) Assessment/Plan: -BP has been stable -Cardiology consult appreciated -Tele monitoring -Diruesis -low sodium diabetic diet -Needs Renal biopsy outpatient Code(s): I10 - ESSENTIAL (PRIMARY) HYPERTENSION (6) SOB (shortness of breath) Assessment/Plan: -Pulmonary consult -2/2 to CHF -Bronchodilators for immediate relief -Nasal O2 PRN, keep Spo2 >90% -diuresis Code(s): R06.02 - SHORTNESS OF BREATH (7) Hypothyroidism Assessment/Plan: -started on Levothyroxine 25 mcg po daily -repeat thyroid profile in 6 weeks Code(s): E03.9 - HYPOTHYROIDISM, UNSPECIFIED Condition: Fair - Instructions Referrals: Ro Espana MD [Primary Care Provider] - 2 Weeks - Home Medications Comprehensive Discharge Medication List: Ambulatory Orders Aspirin [Adult Aspirin Regimen] 81 mg PO DAILY 09/23/18 Atorvastatin Ca [Lipitor] 20 mg PO HS 09/23/18 Bupropion HCl [Wellbutrin Xl -] 150 mg PO DAILY 09/23/18 Carbidopa/Levodopa 25/100 [Sinemet 25/100 -] 1 each PO TID 09/23/18 Divalproex *ER* [Depakote *ER* -] 250 mg PO BID 09/23/18 Docusate Sodium [Stool Softener] 100 mg PO HS 09/23/18 Donepezil HCl [Aricept -] 10 mg PO DAILY 09/23/18 Insulin Glargine,Hum.rec.anlog [Lantus] 14 unit SQ ACBK 09/23/18 Labetalol HCl 400 mg PO TID 09/23/18 Lipase/Protease/Amylase [Creon Dr 36,000 Units Capsule] 1 each PO TID 09/23/18 Mirtazapine 30 mg PO HS 09/23/18 Nifedipine [Procardia Xl] 60 mg PO BID 09/23/18 Olmesartan Medoxomil [Benicar -] 40 mg PO DAILY 09/23/18 Pantoprazole Sodium [Protonix] 40 mg PO DAILY 09/23/18 Potassium Chloride [K-Dur -] 20 meq PO DAILY 09/23/18 traMADol HCL [Ultram -] 50 mg PO TID PRN 09/23/18 Alprazolam [Xanax] 0.5 mg PO Q12H PRN tablet MDD 2 09/30/18 Furosemide [Lasix -] 80 mg PO BID@0600,1400 #60 tablet 09/30/18 Levothyroxine [Synthroid -] 25 mcg PO DAILY@0700 #30 tablet 09/30/18 Polyethylene Glycol 3350 [Miralax 119 gm Btl -] 17 gm PO DAILY bottle 09/30/18 Potassium Chloride [K-Dur -] 20 meq PO DAILY #30 tablet.er 09/30/18 Sennosides [Senna -] 2 tab PO HS PRN tablet 09/30/18 hydrALAZINE HCL [Apresoline -] 100 mg PO TID #90 tablet 09/30/18
--- NOTE | 2018-09-30 11:49 | PN ---
Progress Note, Physician History of Present Illness: Pt seen and examined at bedside. She is awake and alert. She denies shortness of breath. She feels that the edema is improved. - Current Medication List Current Medications: Active Medications Acetaminophen (Tylenol -) 650 mg PO Q4H PRN PRN Reason: PAIN LEVEL 1-5 Alprazolam (Xanax -) 0.5 mg PO Q12H PRN PRN Reason: ANXIETY Last Admin: 09/28/18 21:09 Dose: 0.5 mg Aspirin (Ecotrin -) 81 mg PO DAILY [facility] Last Admin: 09/30/18 10:54 Dose: 81 mg Atorvastatin Calcium (Lipitor -) 20 mg PO HS [facility] Last Admin: 09/29/18 21:28 Dose: 20 mg Bupropion HCl (Wellbutrin Xl -) 150 mg PO DAILY [facility] Last Admin: 09/30/18 10:54 Dose: 150 mg Carbidopa/Levodopa (Sinemet 25/100 -) 1 each PO TID [facility] Last Admin: 09/30/18 05:34 Dose: 1 each Dextrose (D50w (Vial) -) 25 gm IVPUSH PRN PRN PRN Reason: HYPOGLYCEMIA Divalproex Sodium (Depakote -) 250 mg PO DAILY [facility] Last Admin: 09/30/18 10:54 Dose: 250 mg Divalproex Sodium (Depakote -) 125 mg PO HS [facility] Last Admin: 09/29/18 21:31 Dose: 125 mg Docusate Sodium (Colace -) 100 mg PO HS [facility] Last Admin: 09/29/18 21:28 Dose: Not Given Donepezil HCl (Aricept -) 10 mg PO DAILY [facility] Last Admin: 09/30/18 10:54 Dose: 10 mg Enoxaparin Sodium (Lovenox -) 30 mg SQ DAILY [facility] Last Admin: 09/30/18 10:55 Dose: 30 mg Ferrous Sulfate (Feosol -) 325 mg PO DAILY [facility] Last Admin: 09/30/18 10:54 Dose: 325 mg Furosemide (Lasix -) 80 mg PO BID@0600,1400 [facility] Last Admin: 09/30/18 05:36 Dose: 80 mg Hydralazine HCl (Apresoline -) 100 mg PO TID [facility] Insulin Aspart (Novolog Vial Sliding Scale -) 1 vial SQ TIDAC [facility]; Protocol Last Admin: 09/30/18 06:12 Dose: Not Given Labetalol HCl (Normodyne -) 400 mg PO TID [facility] Last Admin: 09/30/18 05:36 Dose: 400 mg Levothyroxine Sodium (Synthroid -) 25 mcg PO DAILY@0700 [facility] Last Admin: 09/30/18 06:12 Dose: 25 mcg Mirtazapine (Remeron -) 30 mg PO HS [facility] Last Admin: 09/29/18 21:29 Dose: 30 mg Nifedipine (Procardia Xl -) 60 mg PO BID [facility] Last Admin: 09/29/18 21:29 Dose: 60 mg Non-Formulary Medication (Olmesartan Medoxomil) 40 mg PO DAILY [facility] Last Admin: 09/30/18 10:56 Dose: 40 mg Pancrelipase (Creon Dr 36,000 Units Capsule) 1 cap PO TIDCM [facility] Last Admin: 09/30/18 09:30 Dose: 1 cap Pantoprazole Sodium (Protonix -) 40 mg PO DAILY [facility] Last Admin: 09/30/18 10:56 Dose: 40 mg Polyethylene Glycol (Miralax (For Daily Use) -) 17 gm PO DAILY [facility] Last Admin: 09/30/18 10:55 Dose: Not Given Potassium Chloride (K-Dur -) 20 meq PO DAILY [facility] Last Admin: 09/30/18 10:54 Dose: 20 meq Senna (Senna -) 2 tab PO HS PRN PRN Reason: CONSTIPATION Last Admin: 09/28/18 21:09 Dose: 2 tab Tramadol HCl (Ultram -) 50 mg PO TID PRN PRN Reason: PAIN LEVEL 6-10 - Objective Vital Signs: Vital Signs Temperature 97.7 F 09/30/18 06:23 Pulse Rate 58 L 09/30/18 06:23 Respiratory Rate 14 09/30/18 06:23 Blood Pressure 171/47 H 09/30/18 06:23 O2 Sat by Pulse Oximetry (%) 98 09/30/18 09:00 Constitutional: Yes: Calm Eyes: Yes: Conjunctiva Clear HENT: Yes: Atraumatic Neck: Yes: Supple Cardiovascular: Yes: S1, S2 Respiratory: Yes: On Nasal O2 Gastrointestinal: Yes: Soft Genitourinary: Yes: WNL Edema: Yes Edema: LLE: Trace, RLE: Trace Neurological: Yes: Oriented Psychiatric: Yes: Oriented Labs: CBC, BMP 09/29/18 12:38 09/30/18 05:20 Problem List - Problems (1) CHF (congestive heart failure) Code(s): I50.9 - HEART FAILURE, UNSPECIFIED Qualifiers: (2) CKD (chronic kidney disease) Code(s): N18.9 - CHRONIC KIDNEY DISEASE, UNSPECIFIED Assessment/Plan Current Medications Generic Name Dose Route Start Last Admin Trade Name Freq PRN Reason Stop Dose Admin Acetaminophen 650 mg 09/23/18 15:59 Tylenol - PO Q4H PRN PAIN LEVEL 1-5 Alprazolam 0.5 mg 09/24/18 18:22 09/28/18 21:09 Xanax - PO 0.5 mg Q12H PRN Administration ANXIETY Aspirin 81 mg 09/24/18 10:00 09/30/18 10:54 Ecotrin - PO 81 mg DAILY [facility] Administration Atorvastatin Calcium 20 mg 09/23/18 22:00 09/29/18 21:28 Lipitor - PO 20 mg HS [facility] Administration Bupropion HCl 150 mg 09/24/18 10:00 09/30/18 10:54 Wellbutrin Xl - PO 150 mg DAILY [facility] Administration Carbidopa/Levodopa 1 each 09/23/18 16:00 09/30/18 05:34 Sinemet 25/100 - PO 1 each TID [facility] Administration Dextrose 25 gm 09/27/18 16:28 D50w (Vial) - IVPUSH PRN PRN HYPOGLYCEMIA Divalproex Sodium 250 mg 09/24/18 10:00 09/30/18 10:54 Depakote - PO 250 mg DAILY [facility] Administration Divalproex Sodium 125 mg 09/23/18 22:00 09/29/18 21:31 Depakote - PO 125 mg HS [facility] Administration Docusate Sodium 100 mg 09/23/18 22:00 09/29/18 21:28 Colace - PO Not Given HS [facility] Donepezil HCl 10 mg 09/24/18 10:00 09/30/18 10:54 Aricept - PO 10 mg DAILY [facility] Administration Enoxaparin Sodium 30 mg 09/24/18 10:00 09/30/18 10:55 Lovenox - SQ 30 mg DAILY [facility] Administration Ferrous Sulfate 325 mg 09/30/18 10:00 09/30/18 10:54 Feosol - PO 325 mg DAILY [facility] Administration Furosemide 80 mg 09/29/18 06:00 09/30/18 05:36 Lasix - PO 80 mg BID@0600,1400 [facility] Administration Hydralazine HCl 100 mg 09/30/18 11:19 Apresoline - PO TID [facility] Insulin Aspart 1 vial 09/23/18 16:30 09/30/18 06:12 Novolog Vial Sliding Scale - SQ Not Given TIDAC [facility] Protocol Labetalol HCl 400 mg 09/23/18 16:00 09/30/18 05:36 Normodyne - PO 400 mg TID [facility] Administration Levothyroxine Sodium 25 mcg 09/24/18 09:50 09/30/18 06:12 Synthroid - PO 25 mcg DAILY@0700 [facility] Administration Mirtazapine 30 mg 09/26/18 22:00 09/29/18 21:29 Remeron - PO 30 mg HS [facility] Administration Nifedipine 60 mg 09/24/18 13:37 09/29/18 21:29 Procardia Xl - PO 60 mg BID [facility] Administration Non-Formulary Medication 40 mg 09/24/18 10:00 09/30/18 10:56 Olmesartan Medoxomil PO 40 mg DAILY [facility] Administration Pancrelipase 1 cap 09/23/18 17:30 09/30/18 09:30 Elaine Sweeney 36,000 Units Capsule PO 1 cap TIDCM [facility] Administration Pantoprazole Sodium 40 mg 09/24/18 10:00 09/30/18 10:56 Protonix - PO 40 mg DAILY [facility] Administration Polyethylene Glycol 17 gm 09/27/18 16:45 09/30/18 10:55 Miralax (For Daily Use) - PO Not Given DAILY [facility] Potassium Chloride 20 meq 09/24/18 10:00 09/30/18 10:54 K-Dur - PO 20 meq DAILY [facility] Administration Senna 2 tab 09/28/18 10:28 09/28/18 21:09 Senna - PO 2 tab HS PRN Administration CONSTIPATION Tramadol HCl 50 mg 09/23/18 15:50 Ultram - PO TID PRN PAIN LEVEL 6-10 Impression 1. JASPER/CKD 2. fluid overload 3. HLD 4. shortness of breath 5. HTN 6. DM 7. proteinuria Impression - cont lasix - will need to monitor volume status, renal function and diuretics doses - will need outpt follow up - cont arb for proteinuria
--- NOTE | 2018-09-30 13:25 | PN ---
Progress Note (short form) - Note Progress Note: Overall appears improved. No acute events overnight. No CP or SOB. Intake & Output 09/27/18 09/28/18 09/29/18 09/30/18 23:59 23:59 23:59 23:59 Intake Total 360 780 120 Balance 360 780 120 Weight 141 lb 6.4 oz 141 lb 6.4 oz 139 lb 14.4 oz 133 lb Last Vital Signs Temp Pulse Resp BP Pulse Ox 97.7 F 58 L 14 171/47 H 98 09/30/18 06:23 09/30/18 06:23 09/30/18 06:23 09/30/18 06:23 09/30/18 09:00 Active Medications Acetaminophen (Tylenol -) 650 mg PO Q4H PRN PRN Reason: PAIN LEVEL 1-5 Alprazolam (Xanax -) 0.5 mg PO Q12H PRN PRN Reason: ANXIETY Last Admin: 09/28/18 21:09 Dose: 0.5 mg Aspirin (Ecotrin -) 81 mg PO DAILY [facility] Last Admin: 09/30/18 10:54 Dose: 81 mg Atorvastatin Calcium (Lipitor -) 20 mg PO HS [facility] Last Admin: 09/29/18 21:28 Dose: 20 mg Bupropion HCl (Wellbutrin Xl -) 150 mg PO DAILY [facility] Last Admin: 09/30/18 10:54 Dose: 150 mg Carbidopa/Levodopa (Sinemet 25/100 -) 1 each PO TID [facility] Last Admin: 09/30/18 05:34 Dose: 1 each Dextrose (D50w (Vial) -) 25 gm IVPUSH PRN PRN PRN Reason: HYPOGLYCEMIA Divalproex Sodium (Depakote -) 250 mg PO DAILY [facility] Last Admin: 09/30/18 10:54 Dose: 250 mg Divalproex Sodium (Depakote -) 125 mg PO HS [facility] Last Admin: 09/29/18 21:31 Dose: 125 mg Docusate Sodium (Colace -) 100 mg PO HS [facility] Last Admin: 09/29/18 21:28 Dose: Not Given Donepezil HCl (Aricept -) 10 mg PO DAILY [facility] Last Admin: 09/30/18 10:54 Dose: 10 mg Enoxaparin Sodium (Lovenox -) 30 mg SQ DAILY [facility] Last Admin: 09/30/18 10:55 Dose: 30 mg Ferrous Sulfate (Feosol -) 325 mg PO DAILY [facility] Last Admin: 09/30/18 10:54 Dose: 325 mg Furosemide (Lasix -) 80 mg PO BID@0600,1400 [facility] Last Admin: 09/30/18 05:36 Dose: 80 mg Hydralazine HCl (Apresoline -) 100 mg PO TID [facility] Insulin Aspart (Novolog Vial Sliding Scale -) 1 vial SQ TIDAC [facility]; Protocol Last Admin: 09/30/18 11:55 Dose: Not Given Labetalol HCl (Normodyne -) 400 mg PO TID [facility] Last Admin: 09/30/18 05:36 Dose: 400 mg Levothyroxine Sodium (Synthroid -) 25 mcg PO DAILY@0700 [facility] Last Admin: 09/30/18 06:12 Dose: 25 mcg Mirtazapine (Remeron -) 30 mg PO HS [facility] Last Admin: 09/29/18 21:29 Dose: 30 mg Nifedipine (Procardia Xl -) 60 mg PO BID [facility] Last Admin: 09/30/18 11:00 Dose: 60 mg Non-Formulary Medication (Olmesartan Medoxomil) 40 mg PO DAILY [facility] Last Admin: 09/30/18 10:56 Dose: 40 mg Pancrelipase (Creon Dr 36,000 Units Capsule) 1 cap PO TIDCM [facility] Last Admin: 09/30/18 09:30 Dose: 1 cap Pantoprazole Sodium (Protonix -) 40 mg PO DAILY [facility] Last Admin: 09/30/18 10:56 Dose: 40 mg Polyethylene Glycol (Miralax (For Daily Use) -) 17 gm PO DAILY [facility] Last Admin: 09/30/18 10:55 Dose: Not Given Potassium Chloride (K-Dur -) 20 meq PO DAILY [facility] Last Admin: 09/30/18 10:54 Dose: 20 meq Senna (Senna -) 2 tab PO HS PRN PRN Reason: CONSTIPATION Last Admin: 09/28/18 21:09 Dose: 2 tab Tramadol HCl (Ultram -) 50 mg PO TID PRN PRN Reason: PAIN LEVEL 6-10 Gen: NAD Heart: RRR Lung: decreased breath sounds at the bases Abd: soft, nontender Ext: + edema Laboratory Results - last 24 hr 09/29/18 09/29/18 09/29/18 12:38 12:38 15:30 WBC 6.5 RBC 3.00 L Hgb 8.0 L Hct 23.9 L MCV 79.8 L MCH 26.8 MCHC 33.6 RDW 18.2 H Plt Count 379 MPV 7.4 L Absolute Neuts (auto) 4.2 Neutrophils % 64.9 Lymphocytes % 17.8 D Monocytes % 12.3 H Eosinophils % 4.4 Basophils % 0.6 Nucleated RBC % 0 Sodium 141 Potassium 4.3 Chloride 102 Carbon Dioxide 37 H Anion Gap 3 L BUN 32.2 H Creatinine 1.7 H Est GFR (CKD-EPI)AfAm 33.37 Est GFR (CKD-EPI)NonAf 28.79 POC Glucometer Random Glucose 146 H Calcium 8.9 Total Bilirubin 0.3 AST 10 L ALT < 6 L Alkaline Phosphatase 94 Total Protein 6.2 L Albumin 2.8 L Stool Occult Blood Negative 09/29/18 09/29/18 09/30/18 15:54 21:01 05:20 WBC RBC Hgb Hct MCV MCH MCHC RDW Plt Count MPV Absolute Neuts (auto) Neutrophils % Lymphocytes % Monocytes % Eosinophils % Basophils % Nucleated RBC % Sodium 144 Potassium 4.4 Chloride 103 Carbon Dioxide 37 H Anion Gap 3 L BUN 33.7 H Creatinine 1.7 H Est GFR (CKD-EPI)AfAm 33.37 Est GFR (CKD-EPI)NonAf 28.79 POC Glucometer 173 226 Random Glucose 132 H Calcium 8.6 Total Bilirubin AST ALT Alkaline Phosphatase Total Protein Albumin Stool Occult Blood 09/30/18 05:33 WBC RBC Hgb Hct MCV MCH MCHC RDW Plt Count MPV Absolute Neuts (auto) Neutrophils % Lymphocytes % Monocytes % Eosinophils % Basophils % Nucleated RBC % Sodium Potassium Chloride Carbon Dioxide Anion Gap BUN Creatinine Est GFR (CKD-EPI)AfAm Est GFR (CKD-EPI)NonAf POC Glucometer 133 Random Glucose Calcium Total Bilirubin AST ALT Alkaline Phosphatase Total Protein Albumin Stool Occult Blood Problem List - Problems (1) Acute on chronic diastolic (congestive) heart failure Code(s): I50.33 - ACUTE ON CHRONIC DIASTOLIC (CONGESTIVE) HEART FAILURE (2) CKD (chronic kidney disease) Code(s): N18.9 - CHRONIC KIDNEY DISEASE, UNSPECIFIED (3) Diabetes Code(s): E11.9 - TYPE 2 DIABETES MELLITUS WITHOUT COMPLICATIONS (4) HLD (hyperlipidemia) Code(s): E78.5 - HYPERLIPIDEMIA, UNSPECIFIED (5) HTN (hypertension) Code(s): I10 - ESSENTIAL (PRIMARY) HYPERTENSION (6) Pleural effusion Code(s): J90 - PLEURAL EFFUSION, NOT ELSEWHERE CLASSIFIED A/P Acute on Chronic Diastolic Heart Failure Poorly Controlled HTN Pulmonary HTN Acute on Chronic Renal Failure DM Hyperlipidemia Parkinsons Anemia Lasix O2 to keep Spo2 >90% VTE prophylaxis D/C planning Dr Zee
[2018-09-30] MEDS ORDERED: PT OWN MED DRAWER 7, Y5N ONE ×2 (15:06→21:40)
[2018-09-30] MEDS: MIRTAZAPINE 15 MG TABLET (FP) PO SCH (21:32)
[2018-09-30] MEDS: DOCUSATE SODIUM 100 MG CAPSULE (FP) PO SCH (22:06)
[2018-09-30] MEDS: DIVALPROEX SODIUM 125 MG TABLET E.C. PO SCH (22:07)
[2018-09-30] MEDS: ATORVASTATIN CA 20 MG TABLET (FP) PO SCH (22:10)
[2018-10-01] MEDS ORDERED: PT OWN MED DRAWER 7, Y5N ONE (05:40)
[2018-10-01] MEDS: CARBIDOPA/LEVODOPA 25/100 TABLET (FP) PO SCH ×3 (05:55→22:15)
[2018-10-01] MEDS: FUROSEMIDE 40 MG TABLET (FP) PO SCH ×2 (05:55→15:13)
[2018-10-01] MEDS: LABETALOL HCL 200 MG TABLET (FP) PO SCH ×3 (05:55→22:14)
[2018-10-01] MEDS: hydrALAZINE HCL 50 MG TABLET (FP) PO SCH ×3 (05:55→22:14)
[2018-10-01] MEDS: LEVOTHYROXINE NA 25 MCG TABLET (FP) PO SCH (06:01)
[2018-10-01] MEDS: INSULIN SLIDING SCALE (NOVOLOG) 1 VIAL SQ SCH ×3 (06:01→18:20)
--- NOTE | 2018-10-01 09:21 | PN ---
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 - Current Medication List Current Medications: Active Medications Acetaminophen (Tylenol -) 650 mg PO Q4H PRN PRN Reason: PAIN LEVEL 1-5 Alprazolam (Xanax -) 0.5 mg PO Q12H PRN PRN Reason: ANXIETY Last Admin: 09/28/18 21:09 Dose: 0.5 mg Aspirin (Ecotrin -) 81 mg PO DAILY [facility] Last Admin: 09/30/18 10:54 Dose: 81 mg Atorvastatin Calcium (Lipitor -) 20 mg PO HS [facility] Last Admin: 09/30/18 22:10 Dose: 20 mg Bupropion HCl (Wellbutrin Xl -) 150 mg PO DAILY [facility] Last Admin: 09/30/18 10:54 Dose: 150 mg Carbidopa/Levodopa (Sinemet 25/100 -) 1 each PO TID [facility] Last Admin: 10/01/18 05:55 Dose: 1 each Dextrose (D50w (Vial) -) 25 gm IVPUSH PRN PRN PRN Reason: HYPOGLYCEMIA Divalproex Sodium (Depakote -) 250 mg PO DAILY [facility] Last Admin: 09/30/18 10:54 Dose: 250 mg Divalproex Sodium (Depakote -) 125 mg PO HS [facility] Last Admin: 09/30/18 22:07 Dose: 125 mg Docusate Sodium (Colace -) 100 mg PO HS [facility] Last Admin: 09/30/18 22:06 Dose: Not Given Donepezil HCl (Aricept -) 10 mg PO DAILY [facility] Last Admin: 09/30/18 10:54 Dose: 10 mg Enoxaparin Sodium (Lovenox -) 30 mg SQ DAILY [facility] Last Admin: 09/30/18 10:55 Dose: 30 mg Ferrous Sulfate (Feosol -) 325 mg PO DAILY [facility] Last Admin: 09/30/18 10:54 Dose: 325 mg Furosemide (Lasix -) 80 mg PO BID@0600,1400 [facility] Last Admin: 10/01/18 05:55 Dose: 80 mg Hydralazine HCl (Apresoline -) 100 mg PO TID [facility] Last Admin: 10/01/18 05:55 Dose: 100 mg Insulin Aspart (Novolog Vial Sliding Scale -) 1 vial SQ TIDAC [facility]; Protocol Last Admin: 10/01/18 06:01 Dose: Not Given Labetalol HCl (Normodyne -) 400 mg PO TID [facility] Last Admin: 10/01/18 05:55 Dose: 400 mg Levothyroxine Sodium (Synthroid -) 25 mcg PO DAILY@0700 [facility] Last Admin: 10/01/18 06:01 Dose: 25 mcg Mirtazapine (Remeron -) 30 mg PO HS [facility] Last Admin: 09/30/18 21:32 Dose: 30 mg Nifedipine (Procardia Xl -) 60 mg PO BID [facility] Last Admin: 09/30/18 21:33 Dose: 60 mg Non-Formulary Medication (Olmesartan Medoxomil) 40 mg PO DAILY [facility] Last Admin: 09/30/18 10:56 Dose: 40 mg Pancrelipase (Creon Dr 36,000 Units Capsule) 1 cap PO TIDCM [facility] Last Admin: 09/30/18 18:17 Dose: 1 cap Pantoprazole Sodium (Protonix -) 40 mg PO DAILY [facility] Last Admin: 09/30/18 10:56 Dose: 40 mg Polyethylene Glycol (Miralax (For Daily Use) -) 17 gm PO DAILY [facility] Last Admin: 09/30/18 10:55 Dose: Not Given Potassium Chloride (K-Dur -) 20 meq PO DAILY [facility] Last Admin: 09/30/18 10:54 Dose: 20 meq Senna (Senna -) 2 tab PO HS PRN PRN Reason: CONSTIPATION Last Admin: 09/28/18 21:09 Dose: 2 tab Tramadol HCl (Ultram -) 50 mg PO TID PRN PRN Reason: PAIN LEVEL 6-10 - Objective Vital Signs: Vital Signs Temperature 98 F 09/30/18 17:00 Pulse Rate 54 L 10/01/18 01:00 Respiratory Rate 13 10/01/18 01:00 Blood Pressure 157/47 L 10/01/18 01:00 O2 Sat by Pulse Oximetry (%) 100 09/30/18 21:00 Constitutional: Yes: No Distress, Calm Eyes: Yes: Conjunctiva Clear HENT: Yes: Atraumatic Cardiovascular: Yes: Bradycardia Respiratory: Yes: Regular, CTA Bilaterally, On Nasal O2 Gastrointestinal: Yes: Normal Bowel Sounds, Soft Musculoskeletal: Yes: Muscle Weakness Extremities: Yes: WNL Edema: No Neurological: Yes: Alert, Pre-Existing Deficit Psychiatric: Yes: Alert Labs: CBC, BMP 09/29/18 12:38 09/30/18 05:20 Microbiology 09/23/18 14:53 Urine - Urine Clean Catch Urine Culture - Final Normal Urogenital Charis Problem List - Problems (1) Hypothyroidism Assessment/Plan: -Levothyroxine -repeat TSH as outpatient in 6 weeks Code(s): E03.9 - HYPOTHYROIDISM, UNSPECIFIED (2) JASPER (acute kidney injury) Assessment/Plan: -renal on board -BUN/Cr 33.7/1.7 -monitor renal function Code(s): N17.9 - ACUTE KIDNEY FAILURE, UNSPECIFIED (3) Anemia Assessment/Plan: -Hg from 09/29 8.0 -receiving Iron Sucrose IVPB x 1 -Ferrous Sulfate Code(s): D64.9 - ANEMIA, UNSPECIFIED (4) Constipation Assessment/Plan: -Colace, Miralax, and Senna Code(s): K59.00 - CONSTIPATION, UNSPECIFIED (5) Diabetes Assessment/Plan: -BGM ACHS -diabetic diet -ISS -D50 IVP prn if BS <70mg/dL Code(s): E11.9 - TYPE 2 DIABETES MELLITUS WITHOUT COMPLICATIONS (6) HLD (hyperlipidemia) Assessment/Plan: -Atorvastatin Code(s): E78.5 - HYPERLIPIDEMIA, UNSPECIFIED (7) HTN (hypertension) Assessment/Plan: -Hydralazine, Labetolol, Nifedine -low Na diet -hold if SBP <110 and/or DBP <60, hold Labetolol for HR <60bpm Code(s): I10 - ESSENTIAL (PRIMARY) HYPERTENSION (8) Acute on chronic diastolic (congestive) heart failure Assessment/Plan: -Cardiology on board -daily weights -1L fluid restriction -tele monitoring -Furosemide daily Code(s): I50.33 - ACUTE ON CHRONIC DIASTOLIC (CONGESTIVE) HEART FAILURE Assessment/Plan see problem list dvt ppx
[2018-10-01] MEDS: LIPASE/PROTEASE/AMYLASE 36,000 UNIT CAPSULE PO SCH ×3 (09:30→19:00)
[2018-10-01] MEDS: DIVALPROEX SODIUM 250 MG TABLET E.C. PO SCH (10:01)
[2018-10-01] MEDS: ASPIRIN COATED 81 MG TABLET.EC PO SCH (10:01)
[2018-10-01] MEDS: PANTOPRAZOLE 40 MG TABLET (FP) PO SCH (10:01)
[2018-10-01] MEDS: ENOXAPARIN NA (PORCINE) 30 MG/0.3 ML DISP.SYRIN SQ SCH (10:01)
[2018-10-01] MEDS: POLYETHYLENE GLYCOL 3350 119 GM BTL PO SCH (10:01)
[2018-10-01] MEDS: DONEPEZIL HCL 10 MG TABLET (FP) PO SCH (10:01)
[2018-10-01] MEDS: FERROUS SO4 325 MG TABLET (FP) PO SCH (10:01)
[2018-10-01] MEDS: POTASSIUM CHLORIDE TABS 20 MEQ TABLET.ER (FP) PO SCH (10:01)
[2018-10-01] MEDS: NIFEdipine E.R 60 MG TABLET (UD) PO SCH ×2 (10:01→22:15)
[2018-10-01] MEDS: PATIENT'S OWN MEDICATION (NON-FORMULARY) (Olmesartan Medoxomil 40 MG) PO SCH (10:02)
--- NOTE | 2018-10-01 16:05 | PN ---
Progress Note (short form) - Note Progress Note: covering dr castelan 1. JASPER/CKD 2. fluid overload 3. HLD 4. shortness of breath 5. HTN 6. DM 7. proteinuria Active Medications Acetaminophen (Tylenol -) 650 mg PO Q4H PRN PRN Reason: PAIN LEVEL 1-5 Alprazolam (Xanax -) 0.5 mg PO Q12H PRN PRN Reason: ANXIETY Last Admin: 09/28/18 21:09 Dose: 0.5 mg Aspirin (Ecotrin -) 81 mg PO DAILY [facility] Last Admin: 10/01/18 10:01 Dose: 81 mg Atorvastatin Calcium (Lipitor -) 20 mg PO HS [facility] Last Admin: 09/30/18 22:10 Dose: 20 mg Bupropion HCl (Wellbutrin Xl -) 150 mg PO DAILY [facility] Last Admin: 10/01/18 10:01 Dose: 150 mg Carbidopa/Levodopa (Sinemet 25/100 -) 1 each PO TID [facility] Last Admin: 10/01/18 15:13 Dose: 1 each Dextrose (D50w (Vial) -) 25 gm IVPUSH PRN PRN PRN Reason: HYPOGLYCEMIA Divalproex Sodium (Depakote -) 250 mg PO DAILY [facility] Last Admin: 10/01/18 10:01 Dose: 250 mg Divalproex Sodium (Depakote -) 125 mg PO HS [facility] Last Admin: 09/30/18 22:07 Dose: 125 mg Docusate Sodium (Colace -) 100 mg PO HS [facility] Last Admin: 09/30/18 22:06 Dose: Not Given Donepezil HCl (Aricept -) 10 mg PO DAILY [facility] Last Admin: 10/01/18 10:01 Dose: 10 mg Enoxaparin Sodium (Lovenox -) 30 mg SQ DAILY [facility] Last Admin: 10/01/18 10:01 Dose: 30 mg Ferrous Sulfate (Feosol -) 325 mg PO DAILY [facility] Last Admin: 10/01/18 10:01 Dose: 325 mg Furosemide (Lasix -) 80 mg PO BID@0600,1400 [facility] Last Admin: 10/01/18 15:13 Dose: 80 mg Hydralazine HCl (Apresoline -) 100 mg PO TID [facility] Last Admin: 10/01/18 15:13 Dose: 100 mg Insulin Aspart (Novolog Vial Sliding Scale -) 1 vial SQ TIDAC [facility]; Protocol Last Admin: 10/01/18 12:02 Dose: Not Given Labetalol HCl (Normodyne -) 400 mg PO TID [facility] Last Admin: 10/01/18 15:13 Dose: Not Given Levothyroxine Sodium (Synthroid -) 25 mcg PO DAILY@0700 [facility] Last Admin: 10/01/18 06:01 Dose: 25 mcg Mirtazapine (Remeron -) 30 mg PO HS [facility] Last Admin: 09/30/18 21:32 Dose: 30 mg Nifedipine (Procardia Xl -) 60 mg PO BID [facility] Last Admin: 10/01/18 10:01 Dose: 60 mg Non-Formulary Medication (Olmesartan Medoxomil) 40 mg PO DAILY [facility] Last Admin: 10/01/18 10:02 Dose: 40 mg Pancrelipase (Creon Dr 36,000 Units Capsule) 1 cap PO TIDCM [facility] Last Admin: 10/01/18 12:00 Dose: Not Given Pantoprazole Sodium (Protonix -) 40 mg PO DAILY [facility] Last Admin: 10/01/18 10:01 Dose: 40 mg Polyethylene Glycol (Miralax (For Daily Use) -) 17 gm PO DAILY [facility] Last Admin: 10/01/18 10:01 Dose: Not Given Potassium Chloride (K-Dur -) 20 meq PO DAILY [facility] Last Admin: 10/01/18 10:01 Dose: 20 meq Senna (Senna -) 2 tab PO HS PRN PRN Reason: CONSTIPATION Last Admin: 09/28/18 21:09 Dose: 2 tab Tramadol HCl (Ultram -) 50 mg PO TID PRN PRN Reason: PAIN LEVEL 6-10 Last Vital Signs Temp Pulse Resp BP Pulse Ox 98 F 54 L 13 157/47 L 100 09/30/18 17:00 10/01/18 01:00 10/01/18 01:00 10/01/18 01:00 09/30/18 21:00 CBC, BMP 09/29/18 12:38 09/30/18 05:20 09/29/18 09/30/18 12:38 05:20 BUN 32.2 H 33.7 H Creatinine 1.7 H 1.7 H Albumin 2.8 L ckd chf on oral diuretics renal function stable
[2018-10-01] MEDS: ATORVASTATIN CA 20 MG TABLET (FP) PO SCH (22:13)
[2018-10-01] MEDS: MIRTAZAPINE 15 MG TABLET (FP) PO SCH (22:14)
[2018-10-01] MEDS: DOCUSATE SODIUM 100 MG CAPSULE (FP) PO SCH (22:15)
[2018-10-01] MEDS: DIVALPROEX SODIUM 125 MG TABLET E.C. PO SCH (22:15)
[2018-10-02] MEDS ORDERED: PT OWN MED DRAWER 7, Y5N ONE ×3 (05:30→17:11)
[2018-10-02] MEDS: hydrALAZINE HCL 50 MG TABLET (FP) PO SCH ×3 (06:37→21:46)
[2018-10-02] MEDS: LEVOTHYROXINE NA 25 MCG TABLET (FP) PO SCH (06:37)
[2018-10-02] MEDS: LABETALOL HCL 200 MG TABLET (FP) PO SCH ×2 (06:37→14:14)
[2018-10-02] MEDS: FUROSEMIDE 40 MG TABLET (FP) PO SCH ×2 (06:37→14:14)
[2018-10-02] MEDS: CARBIDOPA/LEVODOPA 25/100 TABLET (FP) PO SCH ×3 (06:38→21:49)
[2018-10-02] MEDS: INSULIN SLIDING SCALE (NOVOLOG) 1 VIAL SQ SCH ×3 (06:38→16:37)
[2018-10-02 06:39] LABS: HEMATOCRIT 23.9 % (32.4-45.2); HEMOGLOBIN 8.1 GM/dL (10.7-15.3); MCH 27.2 pg (25.7-33.7); MCHC 33.8 g/dl (32.0-36.0); MEAN CELL VOLUME 80.6 fl (80-96); MEAN PLT VOLUME 7.5 fl (7.5-11.1); PLATELET COUNT 391 K/MM3 (134-434); RBC 2.97 M/mm3 (3.60-5.2); RDW 18.3 % (11.6-15.6)
[2018-10-02 07:09] LABS: ALBUMIN 2.8 g/dl (3.4-5.0); ALK PHOS 95 U/L (45-117); ANION GAP 5 MMOL/L (8-16); BILIRUBIN,TOTAL 0.3 mg/dL (0.2-1); CALCIUM 8.4 mg/dL (8.5-10.1); CHLORIDE 102 mmol/L (98-107); CO2 38 mmol/L (21-32); CREATININE 1.6 mg/dL (0.55-1.3); GLUCOSE,RANDOM 166 mg/dL (74-106); POTASSIUM 4.1 mmol/L (3.5-5.1); SGOT/AST 11 U/L (15-37); SGPT/ALT < 6 U/L (13-61); SODIUM 145 mmol/L (136-145); TOT PROT 6.2 g/dl (6.4-8.2)
[2018-10-02] MEDS: ONDANSETRON 4 MG/2 ML VIAL IVPB PRN ×2 (08:34→15:25)
--- NOTE | 2018-10-02 08:42 | PN ---
Progress Note, Physician Chief Complaint: CHF Exacerbation Anemia Hypothyroidism Anemia History of Present Illness: Previous notes and events reviewed awake and alert NAD complain of feeling nauseas and having epigastric pain BP has remained stable denies chest pain or SOB patient sts she wants to go home refusing to eat breakfast because she says she needs to eat food with salt, explained to patient the harm of eating foods with salt in regards to her medical condition spoke with daughter and will be coming to discharge patient home - Current Medication List Current Medications: Active Medications Acetaminophen (Tylenol -) 650 mg PO Q4H PRN PRN Reason: PAIN LEVEL 1-5 Aspirin (Ecotrin -) [address] [facility] Last Admin: 10/01/18 10:01 Dose: 81 mg Atorvastatin Calcium (Lipitor -) [address] [facility] Last Admin: 10/01/18 22:13 Dose: 20 mg Bupropion HCl (Wellbutrin Xl -) [address] [facility] Last Admin: 10/01/18 10:01 Dose: 150 mg Carbidopa/Levodopa (Sinemet 25/100 -) [address] [facility] Last Admin: 10/02/18 06:38 Dose: 1 each Dextrose (D50w (Vial) -) 25 gm IVPUSH PRN PRN PRN Reason: HYPOGLYCEMIA Divalproex Sodium (Depakote -) [address] [facility] Last Admin: 10/01/18 10:01 Dose: 250 mg Divalproex Sodium (Depakote -) [address] [facility] Last Admin: 10/01/18 22:15 Dose: 125 mg Docusate Sodium (Colace -) [address] [facility] Last Admin: 10/01/18 22:15 Dose: Not Given Donepezil HCl (Aricept -) [address] [facility] Last Admin: 10/01/18 10:01 Dose: 10 mg Enoxaparin Sodium (Lovenox -) [address] [facility] Last Admin: 10/01/18 10:01 Dose: 30 mg Ferrous Sulfate (Feosol -) [address] [facility] Last Admin: 10/01/18 10:01 Dose: 325 mg Furosemide (Lasix -) 80 mg PO BID@0600,1400 [facility] Last Admin: 10/02/18 06:37 Dose: 80 mg Hydralazine HCl (Apresoline -) [address] [facility] Last Admin: 10/02/18 06:37 Dose: 100 mg Insulin Aspart (Novolog Vial Sliding Scale -) [address] [facility]; Protocol Last Admin: 10/02/18 06:38 Dose: Not Given Labetalol HCl (Normodyne -) [address] [facility] Last Admin: 10/02/18 06:37 Dose: 400 mg Levothyroxine Sodium (Synthroid -) 25 mcg PO DAILY@0700 [facility] Last Admin: 10/02/18 06:37 Dose: 25 mcg Mirtazapine (Remeron -) [address] [facility] Last Admin: 10/01/18 22:14 Dose: 30 mg Nifedipine (Procardia Xl -) [address] [facility] Last Admin: 10/01/18 22:15 Dose: 60 mg Non-Formulary Medication (Olmesartan Medoxomil) [address] [facility] Last Admin: 10/01/18 10:02 Dose: 40 mg Ondansetron HCl (Zofran Injection) 4 mg IVPB Q6H PRN PRN Reason: NAUSEA Pancrelipase (Creon Dr 36,000 Units Capsule) [address] [facility] Last Admin: 10/01/18 19:00 Dose: 1 cap Pantoprazole Sodium (Protonix -) [address] [facility] Last Admin: 10/01/18 10:01 Dose: 40 mg Polyethylene Glycol (Miralax (For Daily Use) -) [address] [facility] Last Admin: 10/01/18 10:01 Dose: Not Given Potassium Chloride (K-Dur -) [address] [facility] Last Admin: 10/01/18 10:01 Dose: 20 meq Senna (Senna -) 2 tab PO HS PRN PRN Reason: CONSTIPATION Last Admin: 09/28/18 21:09 Dose: 2 tab Tramadol HCl (Ultram -) 50 mg PO TID PRN PRN Reason: PAIN LEVEL 6-10 - Objective Vital Signs: Vital Signs Temperature 98.5 F 10/02/18 06:00 Pulse Rate 64 10/02/18 06:00 Respiratory Rate 18 10/02/18 06:00 Blood Pressure 172/55 H 10/02/18 06:00 O2 Sat by Pulse Oximetry (%) 100 10/01/18 22:00 Constitutional: Yes: No Distress, Calm Eyes: Yes: Conjunctiva Clear HENT: Yes: Atraumatic Cardiovascular: Yes: Regular Rate and Rhythm Respiratory: Yes: Regular, Diminished, On Nasal O2 Gastrointestinal: Yes: Normal Bowel Sounds, Soft Genitourinary: Yes: Incontinence Musculoskeletal: Yes: Muscle Weakness Extremities: Yes: WNL Edema: No Neurological: Yes: Alert, Pre-Existing Deficit Psychiatric: Yes: Alert, Oriented Labs: CBC, BMP 10/02/18 05:20 10/02/18 05:20 Microbiology 09/23/18 14:53 Urine - Urine Clean Catch Urine Culture - Final Normal Urogenital Charis Problem List - Problems (1) Hypothyroidism Assessment/Plan: -Levothyroxine -repeat TSH as outpatient in 6 weeks Code(s): E03.9 - HYPOTHYROIDISM, UNSPECIFIED (2) JASPER (acute kidney injury) Assessment/Plan: -renal on board -BUN/Cr 18/04.6 -monitor renal function Code(s): N17.9 - ACUTE KIDNEY FAILURE, UNSPECIFIED (3) Anemia Assessment/Plan: -Hg from 09/29 8.1 -receiving Iron Sucrose IVPB x 1 -Ferrous Sulfate Code(s): D64.9 - ANEMIA, UNSPECIFIED (4) Constipation Assessment/Plan: -Colace, Miralax, and Senna Code(s): K59.00 - CONSTIPATION, UNSPECIFIED (5) Diabetes Assessment/Plan: -BGM ACHS -diabetic diet -ISS -D50 IVP prn if BS <70mg/dL Code(s): E11.9 - TYPE 2 DIABETES MELLITUS WITHOUT COMPLICATIONS (6) HLD (hyperlipidemia) Assessment/Plan: -Atorvastatin Code(s): E78.5 - HYPERLIPIDEMIA, UNSPECIFIED (7) HTN (hypertension) Assessment/Plan: -Hydralazine, Labetolol, Nifedine -low Na diet -hold if SBP <110 and/or DBP <60, hold Labetolol for HR <60bpm Code(s): I10 - ESSENTIAL (PRIMARY) HYPERTENSION (8) Acute on chronic diastolic (congestive) heart failure Assessment/Plan: -Cardiology on board -daily weights -1L fluid restriction -tele monitoring -Furosemide daily Code(s): I50.33 - ACUTE ON CHRONIC DIASTOLIC (CONGESTIVE) HEART FAILURE Assessment/Plan see problem list dvt ppx
[2018-10-02] MEDS: LIPASE/PROTEASE/AMYLASE 36,000 UNIT CAPSULE PO SCH ×3 (08:45→17:05)
[2018-10-02] MEDS: POLYETHYLENE GLYCOL 3350 119 GM BTL PO SCH (09:59)
[2018-10-02] MEDS: FERROUS SO4 325 MG TABLET (FP) PO SCH (10:00)
[2018-10-02] MEDS: DIVALPROEX SODIUM 250 MG TABLET E.C. PO SCH (10:00)
[2018-10-02] MEDS: DONEPEZIL HCL 10 MG TABLET (FP) PO SCH (10:00)
[2018-10-02] MEDS: PANTOPRAZOLE 40 MG TABLET (FP) PO SCH (10:00)
[2018-10-02] MEDS: ASPIRIN COATED 81 MG TABLET.EC PO SCH (10:00)
[2018-10-02] MEDS: POTASSIUM CHLORIDE TABS 20 MEQ TABLET.ER (FP) PO SCH (10:00)
[2018-10-02] MEDS: ENOXAPARIN NA (PORCINE) 30 MG/0.3 ML DISP.SYRIN SQ SCH (10:01)
[2018-10-02] MEDS: PATIENT'S OWN MEDICATION (NON-FORMULARY) (Olmesartan Medoxomil 40 MG) PO SCH (10:01)
[2018-10-02] MEDS: NIFEdipine E.R 60 MG TABLET (UD) PO SCH ×2 (10:01→21:48)
[2018-10-02] MEDS ORDERED: INSULIN (NOVOLOG) ASPART 100 UNITS/ML 10ML VIAL ONE (11:31)
--- NOTE | 2018-10-02 11:54 | EKG ---
Test Reason : Blood Pressure : / mmHG Vent. Rate : 058 BPM Atrial Rate : 058 BPM P-R Int : 182 ms QRS Dur : 116 ms QT Int : 404 ms P-R-T Axes : 029 -37 065 degrees QTc Int : 396 ms SINUS BRADYCARDIA LEFT AXIS DEVIATION NONSPECIFIC T WAVE ABNORMALITY ABNORMAL ECG WHEN COMPARED WITH ECG OF 23-SEP-2018 11:41, NO SIGNIFICANT CHANGE WAS FOUND Confirmed by JOJO MALIN, VERONA ([id number]) on 10/02/2018 11:54:11 AM Referred By: Jamie PORTER Confirmed By:VERONA URIBE MD
--- NOTE | 2018-10-02 14:34 | PN ---
Progress Note (short form) - Note Progress Note: PULMONARY ASKED TO EVALUATE PATIENT DUE TO AN EPISODE OF DESATURATION AWAKE/ALERT OOB TO CHAIR ASKING IF SHE CAN GO HOME VSS/AFEBRILE/spo2 97% 0n o2 2 l/m Gen: appears stable Heart: RRR Lung: decreased breath sounds at the bases Abd: soft, nontender Ext: + edema mild Active Medications reviewed CXR ordered A/P Acute on Chronic Diastolic Heart Failure Poorly Controlled HTN Pulmonary HTN Acute on Chronic Renal Failure DM Hyperlipidemia Parkinsons Anemia - continue lasix - monitor urine output, creatinine - daily weights - O2 to keep Spo2 >90% - beta curtis - BP control - DVT prophylaxis - Check CXR Sandra RENEE MD
--- NOTE | 2018-10-02 16:17 | PN ---
Progress Note, Physician History of Present Illness: asked to see patient today. she was being prepared for discharge this am when her daughter noted she became unresponsive to her for a few seconds approximately 10:30am. BP was normal at the time. HR was 40s and has remained in 40s-50s. She received labetalol this am. she was seen and examined currently in nad. with her son at bedside. no current new complaints. awake and alert. - Current Medication List Current Medications: Active Medications Acetaminophen (Tylenol -) 650 mg PO Q4H PRN PRN Reason: PAIN LEVEL 1-5 Aspirin (Ecotrin -) 81 mg PO DAILY [facility] Last Admin: 10/02/18 10:00 Dose: 81 mg Atorvastatin Calcium (Lipitor -) 20 mg PO HS [facility] Last Admin: 10/01/18 22:13 Dose: 20 mg Bupropion HCl (Wellbutrin Xl -) 150 mg PO DAILY [facility] Last Admin: 10/02/18 10:00 Dose: 150 mg Carbidopa/Levodopa (Sinemet 25/100 -) 1 each PO TID [facility] Last Admin: 10/02/18 14:15 Dose: 1 each Dextrose (D50w (Vial) -) 25 gm IVPUSH PRN PRN PRN Reason: HYPOGLYCEMIA Divalproex Sodium (Depakote -) 250 mg PO DAILY [facility] Last Admin: 10/02/18 10:00 Dose: 250 mg Divalproex Sodium (Depakote -) 125 mg PO HS [facility] Last Admin: 10/01/18 22:15 Dose: 125 mg Docusate Sodium (Colace -) 100 mg PO HS [facility] Last Admin: 10/01/18 22:15 Dose: Not Given Donepezil HCl (Aricept -) 10 mg PO DAILY [facility] Last Admin: 10/02/18 10:00 Dose: 10 mg Enoxaparin Sodium (Lovenox -) 30 mg SQ DAILY [facility] Last Admin: 10/02/18 10:01 Dose: 30 mg Ferrous Sulfate (Feosol -) 325 mg PO DAILY [facility] Last Admin: 10/02/18 10:00 Dose: 325 mg Furosemide (Lasix -) 80 mg PO BID@0600,1400 [facility] Last Admin: 10/02/18 14:14 Dose: 80 mg Hydralazine HCl (Apresoline -) 100 mg PO TID [facility] Last Admin: 10/02/18 14:14 Dose: 100 mg Insulin Aspart (Novolog Vial Sliding Scale -) 1 vial SQ TIDAC [facility]; Protocol Last Admin: 10/02/18 11:39 Dose: 2 units Labetalol HCl (Normodyne -) 400 mg PO TID [facility] Last Admin: 10/02/18 14:14 Dose: 400 mg Levothyroxine Sodium (Synthroid -) 25 mcg PO DAILY@0700 [facility] Last Admin: 10/02/18 06:37 Dose: 25 mcg Mirtazapine (Remeron -) 30 mg PO HS [facility] Last Admin: 10/01/18 22:14 Dose: 30 mg Nifedipine (Procardia Xl -) 60 mg PO BID [facility] Last Admin: 10/02/18 10:01 Dose: 60 mg Non-Formulary Medication (Olmesartan Medoxomil) 40 mg PO DAILY [facility] Last Admin: 10/02/18 10:01 Dose: 40 mg Ondansetron HCl (Zofran Injection) 4 mg IVPB Q6H PRN PRN Reason: NAUSEA Last Admin: 10/02/18 15:25 Dose: 4 mg Pancrelipase (Creon Dr 36,000 Units Capsule) 1 cap PO TIDCM [facility] Last Admin: 10/02/18 11:41 Dose: 1 cap Pantoprazole Sodium (Protonix -) 40 mg PO DAILY [facility] Last Admin: 10/02/18 10:00 Dose: 40 mg Polyethylene Glycol (Miralax (For Daily Use) -) 17 gm PO DAILY [facility] Last Admin: 10/02/18 09:59 Dose: 17 grams Potassium Chloride (K-Dur -) 20 meq PO DAILY [facility] Last Admin: 10/02/18 10:00 Dose: 20 meq Senna (Senna -) 2 tab PO HS PRN PRN Reason: CONSTIPATION Last Admin: 09/28/18 21:09 Dose: 2 tab - Objective Vital Signs: Vital Signs Temperature 98.3 F 10/02/18 14:00 Pulse Rate 52 L 10/02/18 14:00 Respiratory Rate 16 10/02/18 14:00 Blood Pressure 135/43 L 10/02/18 14:00 O2 Sat by Pulse Oximetry (%) 96 10/02/18 09:00 Constitutional: Yes: No Distress, Calm Eyes: Yes: Conjunctiva Clear, EOM Intact, PERRL HENT: Yes: Atraumatic, Normocephalic Neck: Yes: Supple, Trachea Midline Cardiovascular: Yes: Bradycardia, S1, S2. No: Regular Rate and Rhythm, Tachycardia, Pulse Irregular, Bruit, JVD, Gallop, Murmur, Rub, S3, S4, Varicosities Respiratory: Yes: Regular, Diminished, On Nasal O2, Rales. No: Rhonchi, SOB, Wheezes Gastrointestinal: Yes: Normal Bowel Sounds, Soft. No: Distention, Tenderness Genitourinary: Yes: WNL Breast(s): Yes: WNL Extremities: Yes: WNL Edema: No Peripheral Pulses WNL: Yes Peripheral Pulses: Left Doralis Pedis: 2+, Right Dorsalis Pedis: 2+ Neurological: Yes: Alert, Oriented Psychiatric: Yes: Alert, Oriented Labs: CBC, BMP 10/02/18 05:20 10/02/18 05:20 - ....Imaging Chest X-ray: Report Reviewed, Image Reviewed EKG: Report Reviewed, Image Reviewed Other: Report Reviewed, Image Reviewed (tele-nsr, sb 40-50s) Assessment/Plan 78-year-old female history of diabetes, hypertension, hyperlipidemia, proteinurea and 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 Unresponsiveness -uncertain etiology -normotensive for her at the time -HR 40-50s unlikely to cause unresponsiveness, no long pauses or unstable rhythms recorded on tele that would cause unresponsiveness -keep pt on tele -head CT no acute process -Hold labetalol for now SOB/hypoxia-due to acute on chronic diastolic CHF and 3rd spacing secondary to low albumin -has been difficult to treat due to JASMIN/intravascular depletion with aggressive diuresis due to low oncotic pressure -cont current lasix dose -cont ARB
--- NOTE | 2018-10-02 17:03 | PN ---
Progress Note (short form) - Note Progress Note: covering dr castelan 1. JASPER/CKD 2. fluid overload 3. HLD 4. shortness of breath 5. HTN 6. DM 7. proteinuria Current Medications Acetaminophen (Tylenol -) 650 mg PO Q4H PRN PRN Reason: PAIN LEVEL 1-5 Aspirin (Ecotrin -) 81 mg PO DAILY [facility] Last Admin: 10/02/18 10:00 Dose: 81 mg Atorvastatin Calcium (Lipitor -) 20 mg PO HS [facility] Last Admin: 10/01/18 22:13 Dose: 20 mg Bupropion HCl (Wellbutrin Xl -) 150 mg PO DAILY [facility] Last Admin: 10/02/18 10:00 Dose: 150 mg Carbidopa/Levodopa (Sinemet 25/100 -) 1 each PO TID [facility] Last Admin: 10/02/18 14:15 Dose: 1 each Dextrose (D50w (Vial) -) 25 gm IVPUSH PRN PRN PRN Reason: HYPOGLYCEMIA Divalproex Sodium (Depakote -) 250 mg PO DAILY [facility] Last Admin: 10/02/18 10:00 Dose: 250 mg Divalproex Sodium (Depakote -) 125 mg PO [facility] Last Admin: 10/01/18 22:15 Dose: 125 mg Docusate Sodium (Colace -) 100 mg PO [facility] Last Admin: 10/01/18 22:15 Dose: Not Given Donepezil HCl (Aricept -) 10 mg PO DAILY [facility] Last Admin: 10/02/18 10:00 Dose: 10 mg Enoxaparin Sodium (Lovenox -) 30 mg SQ DAILY [facility] Last Admin: 10/02/18 10:01 Dose: 30 mg Ferrous Sulfate (Feosol -) 325 mg PO DAILY [facility] Last Admin: 10/02/18 10:00 Dose: 325 mg Furosemide (Lasix -) 80 mg PO BID@0600,1400 [facility] Last Admin: 10/02/18 14:14 Dose: 80 mg Hydralazine HCl (Apresoline -) 100 mg PO TID [facility] Last Admin: 10/02/18 14:14 Dose: 100 mg Insulin Aspart (Novolog Vial Sliding Scale -) [address] [facility] [facility] Last Admin: 10/02/18 16:37 Dose: 2 units Labetalol HCl (Normodyne -) 400 mg PO TID [facility] Last Admin: 10/02/18 14:14 Dose: 400 mg Levothyroxine Sodium (Synthroid -) 25 mcg PO DAILY@0700 [facility] Last Admin: 10/02/18 06:37 Dose: 25 mcg Mirtazapine (Remeron -) 30 mg PO HS [facility] Last Admin: 10/01/18 22:14 Dose: 30 mg Nifedipine (Procardia Xl -) 60 mg PO BID [facility] Last Admin: 10/02/18 10:01 Dose: 60 mg Non-Formulary Medication (Olmesartan Medoxomil) 40 mg PO DAILY [facility] Last Admin: 10/02/18 10:01 Dose: 40 mg Ondansetron HCl (Zofran Injection) 4 mg IVPB Q6H PRN PRN Reason: NAUSEA Last Admin: 10/02/18 15:25 Dose: 4 mg Pancrelipase (Creon Dr 36,000 Units Capsule) 1 cap PO TIDCM [facility] Last Admin: 10/02/18 11:41 Dose: 1 cap Pantoprazole Sodium (Protonix -) 40 mg PO DAILY [facility] Last Admin: 10/02/18 10:00 Dose: 40 mg Polyethylene Glycol (Miralax (For Daily Use) -) 17 gm PO DAILY [facility] Last Admin: 10/02/18 09:59 Dose: 17 grams Potassium Chloride (K-Dur -) 20 meq PO DAILY [facility] Last Admin: 10/02/18 10:00 Dose: 20 meq Senna (Senna -) 2 tab PO HS PRN PRN Reason: CONSTIPATION Last Admin: 09/28/18 21:09 Dose: 2 tab Last Vital Signs Temp Pulse Resp BP Pulse Ox 98.3 F 52 L 16 135/43 L 96 10/02/18 14:00 10/02/18 14:00 10/02/18 14:00 10/02/18 14:00 10/02/18 09:00 c/o poor appetite and nausea lungs clear Heart reg Abd soft Ext no edema CBC, BMP 10/02/18 05:20 10/02/18 05:20 CBC, BMP 09/29/18 12:38 09/30/18 05:20 09/29/18 09/30/18 12:38 05:20 BUN 32.2 H 33.7 H Creatinine 1.7 H 1.7 H Albumin 2.8 L IMP Dyspepsia/nausea on pancreatic enzymes ckd chf on oral diuretics renal function stable
[2018-10-02] MEDS: DIVALPROEX SODIUM 125 MG TABLET E.C. PO SCH (21:47)
[2018-10-02] MEDS: DOCUSATE SODIUM 100 MG CAPSULE (FP) PO SCH (21:47)
[2018-10-02] MEDS: ATORVASTATIN CA 20 MG TABLET (FP) PO SCH (21:47)
[2018-10-02] MEDS: MIRTAZAPINE 15 MG TABLET (FP) PO SCH (21:49)
[2018-10-03] MEDS: CARBIDOPA/LEVODOPA 25/100 TABLET (FP) PO SCH ×3 (06:09→21:22)
[2018-10-03] MEDS: FUROSEMIDE 40 MG TABLET (FP) PO SCH ×2 (06:09→13:47)
[2018-10-03] MEDS: hydrALAZINE HCL 50 MG TABLET (FP) PO SCH ×3 (06:09→21:21)
[2018-10-03] MEDS: LEVOTHYROXINE NA 25 MCG TABLET (FP) PO SCH (06:09)
[2018-10-03 06:26] LABS: HEMATOCRIT 23.9 % (32.4-45.2); MCH 27.1 pg (25.7-33.7); MCHC 33.3 g/dl (32.0-36.0); MEAN CELL VOLUME 81.6 fl (80-96); MEAN PLT VOLUME 7.5 fl (7.5-11.1); PLATELET COUNT 365 K/MM3 (134-434); RBC 2.93 M/mm3 (3.60-5.2); RDW 18.3 % (11.6-15.6); WHITE BLOOD COUNT 6.6 K/mm3 (4.0-10.0)
[2018-10-03 07:02] LABS: ALBUMIN 2.7 g/dl (3.4-5.0); ALK PHOS 87 U/L (45-117); ANION GAP 1 MMOL/L (8-16); BILIRUBIN,TOTAL 0.3 mg/dL (0.2-1); BLOOD UREA NITROGEN 29.4 mg/dL (7-18); CALCIUM 8.2 mg/dL (8.5-10.1); CHLORIDE 103 mmol/L (98-107); CO2 38 mmol/L (21-32); CREATININE 1.8 mg/dL (0.55-1.3); GLUCOSE,RANDOM 182 mg/dL (74-106); POTASSIUM 4.5 mmol/L (3.5-5.1); SGOT/AST 10 U/L (15-37); SGPT/ALT < 6 U/L (13-61); SODIUM 142 mmol/L (136-145)
[2018-10-03] MEDS: INSULIN SLIDING SCALE (NOVOLOG) 1 VIAL SQ SCH ×3 (07:10→16:49)
[2018-10-03] MEDS: LIPASE/PROTEASE/AMYLASE 36,000 UNIT CAPSULE PO SCH ×3 (07:53→17:23)
[2018-10-03] MEDS ORDERED: PT OWN MED DRAWER 7, Y5N ONE ×5 (09:22→21:29)
[2018-10-03] MEDS: ASPIRIN COATED 81 MG TABLET.EC PO SCH (09:55)
[2018-10-03] MEDS: POTASSIUM CHLORIDE TABS 20 MEQ TABLET.ER (FP) PO SCH (09:55)
[2018-10-03] MEDS: POLYETHYLENE GLYCOL 3350 119 GM BTL PO SCH (09:55)
[2018-10-03] MEDS: FERROUS SO4 325 MG TABLET (FP) PO SCH (09:55)
[2018-10-03] MEDS: DONEPEZIL HCL 10 MG TABLET (FP) PO SCH (09:55)
[2018-10-03] MEDS: ENOXAPARIN NA (PORCINE) 30 MG/0.3 ML DISP.SYRIN SQ SCH (09:55)
[2018-10-03] MEDS: DIVALPROEX SODIUM 250 MG TABLET E.C. PO SCH (09:56)
[2018-10-03] MEDS: PANTOPRAZOLE 40 MG TABLET (FP) PO SCH (09:56)
[2018-10-03] MEDS: NIFEdipine E.R 60 MG TABLET (UD) PO SCH ×2 (09:56→21:25)
[2018-10-03] MEDS: PATIENT'S OWN MEDICATION (NON-FORMULARY) (Olmesartan Medoxomil 40 MG) PO SCH (09:56)
--- NOTE | 2018-10-03 14:29 | PN ---
Progress Note (short form) - Note Progress Note: Overall appears improved. No acute events overnight. Getting ready for PT. Intake & Output 09/30/18 10/01/18 10/02/18 10/03/18 23:59 23:59 23:59 23:59 Intake Total 220 10 350 Balance 220 10 350 Weight 133 lb 134 lb 12.8 oz Last Vital Signs Temp Pulse Resp BP Pulse Ox 98 F 59 L 16 134/49 L 96 10/03/18 14:00 10/03/18 14:00 10/03/18 14:00 10/03/18 14:00 10/03/18 09:00 Active Medications Acetaminophen (Tylenol -) 650 mg PO Q4H PRN PRN Reason: PAIN LEVEL 1-5 Aspirin (Ecotrin -) 81 mg PO DAILY [facility] Last Admin: 10/03/18 09:55 Dose: 81 mg Atorvastatin Calcium (Lipitor -) 20 mg PO HS [facility] Last Admin: 10/02/18 21:47 Dose: 20 mg Bupropion HCl (Wellbutrin Xl -) 150 mg PO DAILY [facility] Last Admin: 10/03/18 09:56 Dose: 150 mg Carbidopa/Levodopa (Sinemet 25/100 -) 1 each PO TID [facility] Last Admin: 10/03/18 13:47 Dose: 1 each Dextrose (D50w (Vial) -) 25 gm IVPUSH PRN PRN PRN Reason: HYPOGLYCEMIA Divalproex Sodium (Depakote -) 250 mg PO DAILY [facility] Last Admin: 10/03/18 09:56 Dose: 250 mg Divalproex Sodium (Depakote -) 125 mg PO HS [facility] Last Admin: 10/02/18 21:47 Dose: 125 mg Docusate Sodium (Colace -) 100 mg PO HS [facility] Last Admin: 10/02/18 21:47 Dose: Not Given Donepezil HCl (Aricept -) 10 mg PO DAILY [facility] Last Admin: 10/03/18 09:55 Dose: 10 mg Enoxaparin Sodium (Lovenox -) 30 mg SQ DAILY [facility] Last Admin: 10/03/18 09:55 Dose: 30 mg Ferrous Sulfate (Feosol -) 325 mg PO DAILY [facility] Last Admin: 10/03/18 09:55 Dose: 325 mg Furosemide (Lasix -) 80 mg PO BID@0600,1400 [facility] Last Admin: 10/03/18 13:47 Dose: 80 mg Hydralazine HCl (Apresoline -) 100 mg PO TID [facility] Last Admin: 10/03/18 13:47 Dose: 100 mg Insulin Aspart (Novolog Vial Sliding Scale -) 1 vial SQ TIDAC [facility]; Protocol Last Admin: 10/03/18 11:42 Dose: 2 units Labetalol HCl (Normodyne -) 400 mg PO TID [facility] Levothyroxine Sodium (Synthroid -) 25 mcg PO DAILY@0700 [facility] Last Admin: 10/03/18 06:09 Dose: 25 mcg Mirtazapine (Remeron -) 30 mg PO HS [facility] Last Admin: 10/02/18 21:49 Dose: 30 mg Nifedipine (Procardia Xl -) 60 mg PO BID [facility] Last Admin: 10/03/18 09:56 Dose: 60 mg Non-Formulary Medication (Olmesartan Medoxomil) 40 mg PO DAILY [facility] Last Admin: 10/03/18 09:56 Dose: 40 mg Ondansetron HCl (Zofran Injection) 4 mg IVPB Q6H PRN PRN Reason: NAUSEA Last Admin: 10/02/18 15:25 Dose: 4 mg Pancrelipase (Creon Dr 36,000 Units Capsule) 1 cap PO TIDCM [facility] Last Admin: 10/03/18 12:02 Dose: 1 cap Pantoprazole Sodium (Protonix -) 40 mg PO DAILY [facility] Last Admin: 10/03/18 09:56 Dose: 40 mg Polyethylene Glycol (Miralax (For Daily Use) -) 17 gm PO DAILY [facility] Last Admin: 10/03/18 09:55 Dose: 17 grams Potassium Chloride (K-Dur -) 20 meq PO DAILY [facility] Last Admin: 10/03/18 09:55 Dose: 20 meq Senna (Senna -) 2 tab PO HS PRN PRN Reason: CONSTIPATION Last Admin: 09/28/18 21:09 Dose: 2 tab Gen: NAD Heart: RRR Lung: decreased breath sounds at the bases Abd: soft, nontender Ext: + edema Laboratory Results - last 24 hr 09/30/18 09/30/18 10/01/18 11:46 16:22 05:23 WBC RBC Hgb Hct MCV MCH MCHC RDW Plt Count MPV Sodium Potassium Chloride Carbon Dioxide Anion Gap BUN Creatinine Est GFR (CKD-EPI)AfAm Est GFR (CKD-EPI)NonAf POC Glucometer 193 155 151 Random Glucose Calcium Total Bilirubin AST ALT Alkaline Phosphatase Total Protein Albumin 10/01/18 10/01/18 10/01/18 12:01 17:35 22:10 WBC RBC Hgb Hct MCV MCH MCHC RDW Plt Count MPV Sodium Potassium Chloride Carbon Dioxide Anion Gap BUN Creatinine Est GFR (CKD-EPI)AfAm Est GFR (CKD-EPI)NonAf POC Glucometer 173 138 169 Random Glucose Calcium Total Bilirubin AST ALT Alkaline Phosphatase Total Protein Albumin 10/02/18 10/02/18 10/02/18 06:35 10:28 11:22 WBC RBC Hgb Hct MCV MCH MCHC RDW Plt Count MPV Sodium Potassium Chloride Carbon Dioxide Anion Gap BUN Creatinine Est GFR (CKD-EPI)AfAm Est GFR (CKD-EPI)NonAf POC Glucometer 145 196 234 Random Glucose Calcium Total Bilirubin AST ALT Alkaline Phosphatase Total Protein Albumin 10/02/18 10/03/18 10/03/18 16:34 05:20 05:20 WBC 6.6 RBC 2.93 L Hgb 8.0 L Hct 23.9 L MCV 81.6 MCH 27.1 MCHC 33.3 RDW 18.3 H Plt Count 365 MPV 7.5 Sodium 142 Potassium 4.5 Chloride 103 Carbon Dioxide 38 H Anion Gap 1 L BUN 29.4 H Creatinine 1.8 H Est GFR (CKD-EPI)AfAm 31.14 Est GFR (CKD-EPI)NonAf 26.87 POC Glucometer 210 Random Glucose 182 H Calcium 8.2 L Total Bilirubin 0.3 AST 10 L ALT < 6 L Alkaline Phosphatase 87 Total Protein 6.0 L Albumin 2.7 L 10/03/18 11:12 WBC RBC Hgb Hct MCV MCH MCHC RDW Plt Count MPV Sodium Potassium Chloride Carbon Dioxide Anion Gap BUN Creatinine Est GFR (CKD-EPI)AfAm Est GFR (CKD-EPI)NonAf POC Glucometer 246 Random Glucose Calcium Total Bilirubin AST ALT Alkaline Phosphatase Total Protein Albumin Problem List - Problems (1) Acute on chronic diastolic (congestive) heart failure Code(s): I50.33 - ACUTE ON CHRONIC DIASTOLIC (CONGESTIVE) HEART FAILURE (2) CKD (chronic kidney disease) Code(s): N18.9 - CHRONIC KIDNEY DISEASE, UNSPECIFIED (3) Diabetes Code(s): E11.9 - TYPE 2 DIABETES MELLITUS WITHOUT COMPLICATIONS (4) HLD (hyperlipidemia) Code(s): E78.5 - HYPERLIPIDEMIA, UNSPECIFIED (5) HTN (hypertension) Code(s): I10 - ESSENTIAL (PRIMARY) HYPERTENSION (6) Pleural effusion Code(s): J90 - PLEURAL EFFUSION, NOT ELSEWHERE CLASSIFIED A/P Acute on Chronic Diastolic Heart Failure Poorly Controlled HTN Pulmonary HTN Acute on Chronic Renal Failure DM Hyperlipidemia Parkinsons Anemia Lasix O2 to keep Spo2 >90% VTE prophylaxis D/C planning Dr Zee
--- NOTE | 2018-10-03 15:12 | PN ---
Progress Note, Physician History of Present Illness: Pt seen and examined at bedside. She is awake and alert today. She does not remember the episode yesterday. - Current Medication List Current Medications: Active Medications Acetaminophen (Tylenol -) 650 mg PO Q4H PRN PRN Reason: PAIN LEVEL 1-5 Aspirin (Ecotrin -) 81 mg PO DAILY [facility] Last Admin: 10/03/18 09:55 Dose: 81 mg Atorvastatin Calcium (Lipitor -) 20 mg PO HS [facility] Last Admin: 10/02/18 21:47 Dose: 20 mg Bupropion HCl (Wellbutrin Xl -) 150 mg PO DAILY [facility] Last Admin: 10/03/18 09:56 Dose: 150 mg Carbidopa/Levodopa (Sinemet 25/100 -) 1 each PO TID [facility] Last Admin: 10/03/18 13:47 Dose: 1 each Dextrose (D50w (Vial) -) 25 gm IVPUSH PRN PRN PRN Reason: HYPOGLYCEMIA Divalproex Sodium (Depakote -) 250 mg PO DAILY [facility] Last Admin: 10/03/18 09:56 Dose: 250 mg Divalproex Sodium (Depakote -) 125 mg PO HS [facility] Last Admin: 10/02/18 21:47 Dose: 125 mg Docusate Sodium (Colace -) 100 mg PO [facility] Last Admin: 10/02/18 21:47 Dose: Not Given Donepezil HCl (Aricept -) 10 mg PO DAILY [facility] Last Admin: 10/03/18 09:55 Dose: 10 mg Enoxaparin Sodium (Lovenox -) 30 mg SQ DAILY [facility] Last Admin: 10/03/18 09:55 Dose: 30 mg Ferrous Sulfate (Feosol -) 325 mg PO DAILY [facility] Last Admin: 10/03/18 09:55 Dose: 325 mg Furosemide (Lasix -) 80 mg PO BID@0600,1400 [facility] Last Admin: 10/03/18 13:47 Dose: 80 mg Hydralazine HCl (Apresoline -) 100 mg PO TID [facility] Last Admin: 10/03/18 13:47 Dose: 100 mg Insulin Aspart (Novolog Vial Sliding Scale -) 1 vial SQ TIDAC [facility]; Protocol Last Admin: 10/03/18 11:42 Dose: 2 units Labetalol HCl (Normodyne -) 400 mg PO TID [facility] Levothyroxine Sodium (Synthroid -) 25 mcg PO DAILY@0700 [facility] Last Admin: 10/03/18 06:09 Dose: 25 mcg Mirtazapine (Remeron -) 30 mg PO HS [facility] Last Admin: 10/02/18 21:49 Dose: 30 mg Nifedipine (Procardia Xl -) 60 mg PO BID [facility] Last Admin: 10/03/18 09:56 Dose: 60 mg Non-Formulary Medication (Olmesartan Medoxomil) 40 mg PO DAILY [facility] Last Admin: 10/03/18 09:56 Dose: 40 mg Ondansetron HCl (Zofran Injection) 4 mg IVPB Q6H PRN PRN Reason: NAUSEA Last Admin: 10/02/18 15:25 Dose: 4 mg Pancrelipase (Creon Dr 36,000 Units Capsule) 1 cap PO TIDCM [facility] Last Admin: 10/03/18 12:02 Dose: 1 cap Pantoprazole Sodium (Protonix -) 40 mg PO DAILY [facility] Last Admin: 10/03/18 09:56 Dose: 40 mg Polyethylene Glycol (Miralax (For Daily Use) -) 17 gm PO DAILY [facility] Last Admin: 10/03/18 09:55 Dose: 17 grams Potassium Chloride (K-Dur -) 20 meq PO DAILY [facility] Last Admin: 10/03/18 09:55 Dose: 20 meq Senna (Senna -) 2 tab PO HS PRN PRN Reason: CONSTIPATION Last Admin: 09/28/18 21:09 Dose: 2 tab - Objective Vital Signs: Vital Signs Temperature 98 F 10/03/18 14:00 Pulse Rate 59 L 10/03/18 14:00 Respiratory Rate 16 10/03/18 14:00 Blood Pressure 134/49 L 10/03/18 14:00 O2 Sat by Pulse Oximetry (%) 96 10/03/18 09:00 Constitutional: Yes: Calm Eyes: Yes: Conjunctiva Clear HENT: Yes: Atraumatic Neck: Yes: Supple Cardiovascular: Yes: S1, S2 Respiratory: Yes: CTA Bilaterally Gastrointestinal: Yes: Normal Bowel Sounds, Soft Genitourinary: Yes: WNL Musculoskeletal: Yes: WNL Edema: No Neurological: Yes: Oriented Psychiatric: Yes: Oriented Labs: CBC, BMP 10/03/18 05:20 10/03/18 05:20 Problem List - Problems (1) CHF (congestive heart failure) Code(s): I50.9 - HEART FAILURE, UNSPECIFIED Qualifiers: (2) CKD (chronic kidney disease) Code(s): N18.9 - CHRONIC KIDNEY DISEASE, UNSPECIFIED Assessment/Plan Current Medications Generic Name Dose Route Start Last Admin Trade Name Freq PRN Reason Stop Dose Admin Acetaminophen 650 mg 09/23/18 15:59 Tylenol - PO Q4H PRN PAIN LEVEL 1-5 Aspirin 81 mg 09/24/18 10:00 10/03/18 09:55 Ecotrin - PO 81 mg DAILY JOYCE Administration Atorvastatin Calcium 20 mg 09/23/18 22:00 10/02/18 21:47 Lipitor - PO 20 mg HS JOYCE Administration Bupropion HCl 150 mg 09/24/18 10:00 10/03/18 09:56 Wellbutrin Xl - PO 150 mg DAILY JOYCE Administration Carbidopa/Levodopa 1 each 09/23/18 16:00 10/03/18 13:47 Sinemet 25/100 - PO 1 each TID JOYCE Administration Dextrose 25 gm 09/27/18 16:28 D50w (Vial) - IVPUSH PRN PRN HYPOGLYCEMIA Divalproex Sodium 250 mg 09/24/18 10:00 10/03/18 09:56 Depakote - PO 250 mg DAILY JOYCE Administration Divalproex Sodium 125 mg 09/23/18 22:00 10/02/18 21:47 Depakote - PO 125 mg HS JOYCE Administration Docusate Sodium 100 mg 09/23/18 22:00 10/02/18 21:47 Colace - PO Not Given HS JOYCE Donepezil HCl 10 mg 09/24/18 10:00 10/03/18 09:55 Aricept - PO 10 mg DAILY JOYCE Administration Enoxaparin Sodium 30 mg 09/24/18 10:00 10/03/18 09:55 Lovenox - SQ 30 mg DAILY JOYCE Administration Ferrous Sulfate 325 mg 09/30/18 10:00 10/03/18 09:55 Feosol - PO 325 mg DAILY JOYCE Administration Furosemide 80 mg 09/29/18 06:00 10/03/18 13:47 Lasix - PO 80 mg BID@0600,1400 JOYCE Administration Hydralazine HCl 100 mg 09/30/18 11:19 10/03/18 13:47 Apresoline - PO 100 mg TID JOYCE Administration Insulin Aspart 1 vial 07/05/19 16:30 10/03/18 11:42 Novolog Vial Sliding Scale - SQ 2 units TIDAC JOYCE Administration Protocol Labetalol HCl 400 mg 10/02/18 19:33 Normodyne - PO TID JOYCE Levothyroxine Sodium 25 mcg 09/24/18 09:50 10/03/18 06:09 Synthroid - PO 25 mcg DAILY@0700 JOYCE Administration Mirtazapine 30 mg 09/26/18 22:00 10/02/18 21:49 Remeron - PO 30 mg HS JOYCE Administration Nifedipine 60 mg 09/24/18 13:37 10/03/18 09:56 Procardia Xl - PO 60 mg BID JOYCE Administration Non-Formulary Medication 40 mg 09/24/18 10:00 10/03/18 09:56 Olmesartan Medoxomil PO 40 mg DAILY JOYCE Administration Ondansetron HCl 4 mg 10/02/18 08:28 10/02/18 15:25 Zofran Injection IVPB 4 mg Q6H PRN Administration NAUSEA Pancrelipase 1 cap 09/23/18 17:30 10/03/18 12:02 Creon 36,000 Units Capsule PO 1 cap TIDCM JOYCE Administration Pantoprazole Sodium 40 mg 09/24/18 10:00 10/03/18 09:56 Protonix - PO 40 mg DAILY JOYCE Administration Polyethylene Glycol 17 gm 09/27/18 16:45 10/03/18 09:55 Miralax (For Daily Use) - PO 17 grams DAILY JOYCE Administration Potassium Chloride 20 meq 09/24/18 10:00 10/03/18 09:55 K-Dur - PO 20 meq DAILY JOYCE Administration Senna 2 tab 09/28/18 10:28 09/28/18 21:09 Senna - PO 2 tab HS PRN Administration CONSTIPATION Impression 1. JASPER/CKD 2. fluid overload 3. HLD 4. shortness of breath 5. HTN 6. DM 7. proteinuria Impression - cont to monitor renal function - volume status is stable - cont arb for proteinuria - cardio input appreciated - will need outpt follow up
--- NOTE | 2018-10-03 15:17 | PN ---
Progress Note, Physician Chief Complaint: No complaints or events overnight Sinus on tele History of Present Illness: 78-year-old female history of diabetes, hypertension, hyperlipidemia, proteinurea and 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 - Current Medication List Current Medications: Active Medications Acetaminophen (Tylenol -) 650 mg PO Q4H PRN PRN Reason: PAIN LEVEL 1-5 Aspirin (Ecotrin -) 81 mg PO DAILY [facility] Last Admin: 10/03/18 09:55 Dose: 81 mg Atorvastatin Calcium (Lipitor -) 20 mg PO HS [facility] Last Admin: 10/02/18 21:47 Dose: 20 mg Bupropion HCl (Wellbutrin Xl -) 150 mg PO DAILY [facility] Last Admin: 10/03/18 09:56 Dose: 150 mg Carbidopa/Levodopa (Sinemet 25/100 -) 1 each PO TID [facility] Last Admin: 10/03/18 13:47 Dose: 1 each Dextrose (D50w (Vial) -) 25 gm IVPUSH PRN PRN PRN Reason: HYPOGLYCEMIA Divalproex Sodium (Depakote -) 250 mg PO DAILY [facility] Last Admin: 10/03/18 09:56 Dose: 250 mg Divalproex Sodium (Depakote -) 125 mg PO HS [facility] Last Admin: 10/02/18 21:47 Dose: 125 mg Docusate Sodium (Colace -) 100 mg PO HS [facility] Last Admin: 10/02/18 21:47 Dose: Not Given Donepezil HCl (Aricept -) 10 mg PO DAILY [facility] Last Admin: 10/03/18 09:55 Dose: 10 mg Enoxaparin Sodium (Lovenox -) 30 mg SQ DAILY [facility] Last Admin: 10/03/18 09:55 Dose: 30 mg Ferrous Sulfate (Feosol -) 325 mg PO DAILY [facility] Last Admin: 10/03/18 09:55 Dose: 325 mg Furosemide (Lasix -) 80 mg PO BID@0600,1400 [facility] Last Admin: 10/03/18 13:47 Dose: 80 mg Hydralazine HCl (Apresoline -) 100 mg PO TID [facility] Last Admin: 10/03/18 13:47 Dose: 100 mg Insulin Aspart (Novolog Vial Sliding Scale -) 1 vial SQ TIDAC [facility]; Protocol Last Admin: 10/03/18 11:42 Dose: 2 units Labetalol HCl (Normodyne -) 400 mg PO TID [facility] Levothyroxine Sodium (Synthroid -) 25 mcg PO DAILY@0700 [facility] Last Admin: 10/03/18 06:09 Dose: 25 mcg Mirtazapine (Remeron -) 30 mg PO HS [facility] Last Admin: 10/02/18 21:49 Dose: 30 mg Nifedipine (Procardia Xl -) 60 mg PO BID [facility] Last Admin: 10/03/18 09:56 Dose: 60 mg Non-Formulary Medication (Olmesartan Medoxomil) 40 mg PO DAILY [facility] Last Admin: 10/03/18 09:56 Dose: 40 mg Ondansetron HCl (Zofran Injection) 4 mg IVPB Q6H PRN PRN Reason: NAUSEA Last Admin: 10/02/18 15:25 Dose: 4 mg Pancrelipase (Creon Dr 36,000 Units Capsule) 1 cap PO TIDCM [facility] Last Admin: 10/03/18 12:02 Dose: 1 cap Pantoprazole Sodium (Protonix -) 40 mg PO DAILY [facility] Last Admin: 10/03/18 09:56 Dose: 40 mg Polyethylene Glycol (Miralax (For Daily Use) -) 17 gm PO DAILY [facility] Last Admin: 10/03/18 09:55 Dose: 17 grams Potassium Chloride (K-Dur -) 20 meq PO DAILY [facility] Last Admin: 10/03/18 09:55 Dose: 20 meq Senna (Senna -) 2 tab PO HS PRN PRN Reason: CONSTIPATION Last Admin: 09/28/18 21:09 Dose: 2 tab - Objective Vital Signs: Vital Signs Temperature 98 F 10/03/18 14:00 Pulse Rate 59 L 10/03/18 14:00 Respiratory Rate 16 10/03/18 14:00 Blood Pressure 134/49 L 10/03/18 14:00 O2 Sat by Pulse Oximetry (%) 96 10/03/18 09:00 Constitutional: Yes: No Distress Neck: Yes: WNL Cardiovascular: Yes: Regular Rate and Rhythm, S1, S2. No: JVD Respiratory: Yes: CTA Bilaterally Gastrointestinal: Yes: Soft Edema: No Labs: CBC, BMP 10/03/18 05:20 10/03/18 05:20 Problem List - Problems (1) CHF (congestive heart failure) Code(s): I50.9 - HEART FAILURE, UNSPECIFIED Qualifiers: Assessment/Plan 78-year-old female history of diabetes, hypertension, hyperlipidemia, proteinurea and 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 Unresponsiveness -uncertain etiology -normotensive for her at the time -HR 40-50s unlikely to cause unresponsiveness, no long pauses or unstable rhythms recorded on tele that would cause unresponsiveness -Tele last 24 hours uneventful -head CT no acute process -Hold labetalol SOB/hypoxia-due to acute on chronic diastolic CHF and 3rd spacing secondary to low albumin -has been difficult to treat due to JASMIN/intravascular depletion with aggressive diuresis due to low oncotic pressure -cont current lasix dose -cont ARB Will sign off at this time.
--- NOTE | 2018-10-03 17:07 | PN ---
Progress Note, Physician Chief Complaint: CHF exacerbation HTN Hypothyroidism Anemia History of Present Illness: NAD feels better wants to go home switched to oral diuretics awaiting discharge Daughter has appealed discharge, awaiting insurance decision - Current Medication List Current Medications: Active Medications Acetaminophen (Tylenol -) 650 mg PO Q4H PRN PRN Reason: PAIN LEVEL 1-5 Aspirin (Ecotrin -) 81 mg PO DAILY [facility] Last Admin: 10/03/18 09:55 Dose: 81 mg Atorvastatin Calcium (Lipitor -) 20 mg PO HS [facility] Last Admin: 10/02/18 21:47 Dose: 20 mg Bupropion HCl (Wellbutrin Xl -) 150 mg PO DAILY [facility] Last Admin: 10/03/18 09:56 Dose: 150 mg Carbidopa/Levodopa (Sinemet 25/100 -) 1 each PO TID [facility] Last Admin: 10/03/18 13:47 Dose: 1 each Dextrose (D50w (Vial) -) 25 gm IVPUSH PRN PRN PRN Reason: HYPOGLYCEMIA Divalproex Sodium (Depakote -) 250 mg PO DAILY [facility] Last Admin: 10/03/18 09:56 Dose: 250 mg Divalproex Sodium (Depakote -) 125 mg PO HS [facility] Last Admin: 10/02/18 21:47 Dose: 125 mg Docusate Sodium (Colace -) 100 mg PO HS [facility] Last Admin: 10/02/18 21:47 Dose: Not Given Donepezil HCl (Aricept -) 10 mg PO DAILY [facility] Last Admin: 10/03/18 09:55 Dose: 10 mg Enoxaparin Sodium (Lovenox -) 30 mg SQ DAILY [facility] Last Admin: 10/03/18 09:55 Dose: 30 mg Ferrous Sulfate (Feosol -) 325 mg PO DAILY [facility] Last Admin: 10/03/18 09:55 Dose: 325 mg Furosemide (Lasix -) 80 mg PO BID@0600,1400 [facility] Last Admin: 10/03/18 13:47 Dose: 80 mg Hydralazine HCl (Apresoline -) 100 mg PO TID [facility] Last Admin: 10/03/18 13:47 Dose: 100 mg Insulin Aspart (Novolog Vial Sliding Scale -) 1 vial SQ TIDAC [facility]; Protocol Last Admin: 10/03/18 16:49 Dose: Not Given Labetalol HCl (Normodyne -) 400 mg PO TID [facility] Levothyroxine Sodium (Synthroid -) 25 mcg PO DAILY@0700 [facility] Last Admin: 10/03/18 06:09 Dose: 25 mcg Mirtazapine (Remeron -) 30 mg PO HS [facility] Last Admin: 10/02/18 21:49 Dose: 30 mg Nifedipine (Procardia Xl -) 60 mg PO BID [facility] Last Admin: 10/03/18 09:56 Dose: 60 mg Non-Formulary Medication (Olmesartan Medoxomil) 40 mg PO DAILY [facility] Last Admin: 10/03/18 09:56 Dose: 40 mg Ondansetron HCl (Zofran Injection) 4 mg IVPB Q6H PRN PRN Reason: NAUSEA Last Admin: 10/02/18 15:25 Dose: 4 mg Pancrelipase (Creon Dr 36,000 Units Capsule) 1 cap PO TIDCM [facility] Last Admin: 10/03/18 12:02 Dose: 1 cap Pantoprazole Sodium (Protonix -) 40 mg PO DAILY [facility] Last Admin: 10/03/18 09:56 Dose: 40 mg Polyethylene Glycol (Miralax (For Daily Use) -) 17 gm PO DAILY [facility] Last Admin: 10/03/18 09:55 Dose: 17 grams Potassium Chloride (K-Dur -) 20 meq PO DAILY [facility] Last Admin: 10/03/18 09:55 Dose: 20 meq Senna (Senna -) 2 tab PO HS PRN PRN Reason: CONSTIPATION Last Admin: 09/28/18 21:09 Dose: 2 tab - Objective Vital Signs: Vital Signs Temperature 98 F 10/03/18 14:00 Pulse Rate 59 L 10/03/18 14:00 Respiratory Rate 16 10/03/18 14:00 Blood Pressure 134/49 L 10/03/18 14:00 O2 Sat by Pulse Oximetry (%) 96 10/03/18 09:00 Constitutional: Yes: Well Nourished, No Distress, Calm Cardiovascular: Yes: Regular Rate and Rhythm Respiratory: Yes: Regular Gastrointestinal: Yes: WNL Genitourinary: Yes: WNL Musculoskeletal: Yes: WNL Extremities: Yes: WNL Edema: No Peripheral Pulses WNL: Yes Neurological: Yes: Alert, Oriented Psychiatric: Yes: Alert, Oriented Labs: CBC, BMP 10/03/18 05:20 07/15/19 05:20 Problem List - Problems (1) JASPER (acute kidney injury) Assessment/Plan: -nephrology consult -monitor trend Code(s): N17.9 - ACUTE KIDNEY FAILURE, UNSPECIFIED (2) Acute on chronic diastolic (congestive) heart failure Assessment/Plan: -Cardiology consult -Tele monitoring -Diruesis -low sodium diabetic diet -daily weights Code(s): I50.33 - ACUTE ON CHRONIC DIASTOLIC (CONGESTIVE) HEART FAILURE (3) Anemia Assessment/Plan: -chronic -hematology consult -[place] transfusion for Hg<7.0 to avoid fluid overload -Iron% low -B12 normal -TSH elevated -stool OB negative -ferrous sulfate 1 tab po daily Code(s): D64.9 - ANEMIA, UNSPECIFIED (4) Diabetes Assessment/Plan: -BGM AC HS -Diabetic low sodium diet -Decreased po intake -d/c levemir and monitor for now -ISS -D50PRN for symptomatic hypoglycemia below 70 mg/dl Code(s): E11.9 - TYPE 2 DIABETES MELLITUS WITHOUT COMPLICATIONS (5) HTN (hypertension) Assessment/Plan: -BP has been stable -Cardiology consult appreciated -Tele monitoring -Diruesis -low sodium diabetic diet -Needs Renal biopsy outpatient Code(s): I10 - ESSENTIAL (PRIMARY) HYPERTENSION (6) SOB (shortness of breath) Assessment/Plan: -Pulmonary consult -2/2 to CHF -Bronchodilators for immediate relief -Nasal O2 PRN, keep Spo2 >90% -diuresis Code(s): R06.02 - SHORTNESS OF BREATH (7) Hypothyroidism Code(s): E03.9 - HYPOTHYROIDISM, UNSPECIFIED Assessment/Plan see problem list
[2018-10-03] MEDS: LABETALOL HCL 200 MG TABLET (FP) PO SCH (21:21)
[2018-10-03] MEDS: DOCUSATE SODIUM 100 MG CAPSULE (FP) PO SCH (21:22)
[2018-10-03] MEDS: MIRTAZAPINE 15 MG TABLET (FP) PO SCH (21:23)
[2018-10-03] MEDS: ATORVASTATIN CA 20 MG TABLET (FP) PO SCH (21:26)
[2018-10-03] MEDS: DIVALPROEX SODIUM 125 MG TABLET E.C. PO SCH (21:31)
[2018-10-04] MEDS: FUROSEMIDE 40 MG TABLET (FP) PO SCH ×2 (05:30→16:27)
[2018-10-04] MEDS: LABETALOL HCL 200 MG TABLET (FP) PO SCH ×3 (05:30→21:44)
[2018-10-04] MEDS: CARBIDOPA/LEVODOPA 25/100 TABLET (FP) PO SCH ×3 (05:32→23:22)
[2018-10-04] MEDS: INSULIN SLIDING SCALE (NOVOLOG) 1 VIAL SQ SCH ×3 (05:59→16:44)
[2018-10-04] MEDS: hydrALAZINE HCL 50 MG TABLET (FP) PO SCH ×3 (06:20→21:43)
[2018-10-04] MEDS: LEVOTHYROXINE NA 25 MCG TABLET (FP) PO SCH (06:21)
[2018-10-04] MEDS ORDERED: PT OWN MED DRAWER 7, Y5N ONE ×2 (08:33→16:21)
[2018-10-04] MEDS: LIPASE/PROTEASE/AMYLASE 36,000 UNIT CAPSULE PO SCH ×3 (09:03→18:10)
[2018-10-04] MEDS: DIVALPROEX SODIUM 250 MG TABLET E.C. PO SCH (09:11)
[2018-10-04] MEDS: PANTOPRAZOLE 40 MG TABLET (FP) PO SCH (09:11)
[2018-10-04] MEDS: ENOXAPARIN NA (PORCINE) 30 MG/0.3 ML DISP.SYRIN SQ SCH (09:11)
[2018-10-04] MEDS: POTASSIUM CHLORIDE TABS 20 MEQ TABLET.ER (FP) PO SCH (09:11)
[2018-10-04] MEDS: FERROUS SO4 325 MG TABLET (FP) PO SCH (09:12)
[2018-10-04] MEDS: ASPIRIN COATED 81 MG TABLET.EC PO SCH (09:12)
[2018-10-04] MEDS: PATIENT'S OWN MEDICATION (NON-FORMULARY) (Olmesartan Medoxomil 40 MG) PO SCH (09:13)
[2018-10-04] MEDS: POLYETHYLENE GLYCOL 3350 119 GM BTL PO SCH (09:14)
--- NOTE | 2018-10-04 09:27 | DS ---
Physical Examination Vital Signs: Vital Signs Temperature 97.8 F 10/04/18 06:00 Pulse Rate 60 10/04/18 06:00 Respiratory Rate 18 10/04/18 06:00 Blood Pressure 185/61 H 10/04/18 06:00 O2 Sat by Pulse Oximetry (%) 96 10/03/18 20:10 Cardiovascular: Yes: S1, S2 Respiratory: Yes: Regular, On Nasal O2, Rales (at the bases) Gastrointestinal: Yes: Normal Bowel Sounds, Soft Labs: CBC, BMP 10/03/18 05:20 10/03/18 05:20 Discharge Summary Reason For Visit: CHF Current Active Problems CHF (congestive heart failure) (Acute) CHF exacerbation (Acute) Hypothyroidism (Acute) Hospital Course: - Problems (1) JASPER (acute kidney injury) Assessment/Plan: -nephrology consult -monitor trend -Stable now Code(s): N17.9 - ACUTE KIDNEY FAILURE, UNSPECIFIED (2) Acute on chronic diastolic (congestive) heart failure Assessment/Plan: -Cardiology consult noted --same meds -Cxr noted -Diruesis -low sodium diabetic diet -daily weights Code(s): I50.33 - ACUTE ON CHRONIC DIASTOLIC (CONGESTIVE) HEART FAILURE (3) Anemia Assessment/Plan: -chronic -hematology consult -[place] transfusion for Hg<7.0 to avoid fluid overload -Iron% low -B12 normal -TSH elevated -stool OB negative -ferrous sulfate 1 tab po daily Code(s): D64.9 - ANEMIA, UNSPECIFIED (4) Diabetes Assessment/Plan: -BGM AC HS -Diabetic low sodium diet -Decreased po intake -d/c levemir and monitor for now -ISS -D50PRN for symptomatic hypoglycemia below 70 mg/dl Code(s): E11.9 - TYPE 2 DIABETES MELLITUS WITHOUT COMPLICATIONS (5) HTN (hypertension) Assessment/Plan: -BP has been Fluctuating -add cardura -Cardiology consult appreciated -Diruesis -low sodium diabetic diet -Needs Renal biopsy outpatient Code(s): I10 - ESSENTIAL (PRIMARY) HYPERTENSION (6) SOB (shortness of breath) Assessment/Plan: -Pulmonary consult -2/2 to CHF -Bronchodilators for immediate relief -Nasal O2 PRN, keep Spo2 >90% -diuresis Code(s): R06.02 - SHORTNESS OF BREATH (7) Hypothyroidism Code(s): E03.9 - HYPOTHYROIDISM, UNSPECIFIED dc planning--pt wants to go home--outpatient management Condition: Fair - Instructions Referrals: Ro Espana MD [Primary Care Provider] - 2 Weeks - Home Medications Comprehensive Discharge Medication List: Ambulatory Orders Aspirin [Adult Aspirin Regimen] 81 mg PO DAILY 09/23/18 Atorvastatin Ca [Lipitor] 20 mg PO HS 09/23/18 Bupropion HCl [Wellbutrin Xl -] 150 mg PO DAILY 09/23/18 Carbidopa/Levodopa 25/100 [Sinemet 25/100 -] 1 each PO TID 09/23/18 Divalproex *ER* [Depakote *ER* -] 250 mg PO BID 09/23/18 Docusate Sodium [Stool Softener] 100 mg PO HS 09/23/18 Donepezil HCl [Aricept -] 10 mg PO DAILY 09/23/18 Insulin Glargine,Hum.rec.anlog [Lantus] 14 unit SQ ACBK 09/23/18 Labetalol HCl 400 mg PO TID 09/23/18 Lipase/Protease/Amylase [Creon Dr 36,000 Units Capsule] 1 each PO TID 09/23/18 Mirtazapine 30 mg PO HS 09/23/18 Nifedipine [Procardia Xl] 60 mg PO BID 09/23/18 Olmesartan Medoxomil [Benicar -] 40 mg PO DAILY 09/23/18 Pantoprazole Sodium [Protonix] 40 mg PO DAILY 09/23/18 Potassium Chloride [K-Dur -] 20 meq PO DAILY 09/23/18 traMADol HCL [Ultram -] 50 mg PO TID PRN 09/23/18 Alprazolam [Xanax] 0.5 mg PO Q12H PRN tablet MDD 2 09/30/18 Furosemide [Lasix -] 80 mg PO BID@0600,1400 #60 tablet 09/30/18 Levothyroxine [Synthroid -] 25 mcg PO DAILY@0700 #30 tablet 09/30/18 Polyethylene Glycol 3350 [Miralax 119 gm Btl -] 17 gm PO DAILY bottle 09/30/18 Potassium Chloride [K-Dur -] 20 meq PO DAILY #30 tablet.er 09/30/18 Sennosides [Senna -] 2 tab PO HS PRN tablet 09/30/18 hydrALAZINE HCL [Apresoline -] 100 mg PO TID #90 tablet 09/30/18 Doxazosin Mesylate [Cardura -] 1 mg PO BID #60 tablet 10/04/18
[2018-10-04] MEDS ORDERED: DOXAZOSIN MESYLATE 1 MG TABLET PO SCH (10:00)
[2018-10-04 10:22] LABS: BASO % 0.6 % (0-2.0); EOS % 3.9 % (0-4.5); HEMATOCRIT 26.1 % (32.4-45.2); HEMOGLOBIN 8.6 GM/dL (10.7-15.3); LYMPH % 12.2 % (8-40); MCH 26.9 pg (25.7-33.7); MEAN CELL VOLUME 81.4 fl (80-96); MEAN PLT VOLUME 7.6 fl (7.5-11.1); MONO % 10.3 % (3.8-10.2); PLATELET COUNT 407 K/MM3 (134-434); RBC 3.21 M/mm3 (3.60-5.2); RDW 18.2 % (11.6-15.6); WHITE BLOOD COUNT 6.8 K/mm3 (4.0-10.0)
[2018-10-04 10:59] LABS: BILIRUBIN,TOTAL 0.4 mg/dL (0.2-1); BLOOD UREA NITROGEN 31.2 mg/dL (7-18); CALCIUM 8.6 mg/dL (8.5-10.1); CREATININE 1.6 mg/dL (0.55-1.3); POTASSIUM 4.5 mmol/L (3.5-5.1); TOT PROT 6.6 g/dl (6.4-8.2)
--- NOTE | 2018-10-04 11:35 | PN ---
Progress Note, Physician History of Present Illness: Pt seen and examined at bedside. She is awake and alert. She denies shortness of breath. - Current Medication List Current Medications: Active Medications Acetaminophen (Tylenol -) 650 mg PO Q4H PRN PRN Reason: PAIN LEVEL 1-5 Aspirin (Ecotrin -) 81 mg PO DAILY [facility] Last Admin: 10/04/18 09:12 Dose: 81 mg Atorvastatin Calcium (Lipitor -) 20 mg PO HS [facility] Last Admin: 10/03/18 21:26 Dose: 20 mg Bupropion HCl (Wellbutrin Xl -) 150 mg PO DAILY [facility] Last Admin: 10/04/18 09:12 Dose: 150 mg Carbidopa/Levodopa (Sinemet 25/100 -) 1 each PO TID [facility] Last Admin: 10/04/18 05:32 Dose: 1 each Dextrose (D50w (Vial) -) 25 gm IVPUSH PRN PRN PRN Reason: HYPOGLYCEMIA Divalproex Sodium (Depakote -) 250 mg PO DAILY [facility] Last Admin: 10/04/18 09:11 Dose: 250 mg Divalproex Sodium (Depakote -) 125 mg PO HS [facility] Last Admin: 10/03/18 21:31 Dose: 125 mg Docusate Sodium (Colace -) 100 mg PO [facility] Last Admin: 10/03/18 21:22 Dose: 100 mg Donepezil HCl (Aricept -) 10 mg PO DAILY [facility] Last Admin: 10/03/18 09:55 Dose: 10 mg Doxazosin Mesylate (Cardura -) 1 mg PO DAILY [facility] Enoxaparin Sodium (Lovenox -) 30 mg SQ DAILY [facility] Last Admin: 10/04/18 09:11 Dose: 30 mg Ferrous Sulfate (Feosol -) 325 mg PO DAILY [facility] Last Admin: 10/04/18 09:12 Dose: 325 mg Furosemide (Lasix -) 80 mg PO BID@0600,1400 [facility] Last Admin: 10/04/18 05:30 Dose: 80 mg Hydralazine HCl (Apresoline -) 100 mg PO TID [facility] Last Admin: 10/04/18 06:20 Dose: 100 mg Insulin Aspart (Novolog Vial Sliding Scale -) 1 vial SQ TIDAC [facility]; Protocol Last Admin: 10/04/18 05:59 Dose: Not Given Labetalol HCl (Normodyne -) 400 mg PO TID [facility] Last Admin: 10/04/18 05:30 Dose: 400 mg Levothyroxine Sodium (Synthroid -) 25 mcg PO DAILY@0700 [facility] Last Admin: 10/04/18 06:21 Dose: 25 mcg Mirtazapine (Remeron -) 30 mg PO HS [facility] Last Admin: 10/03/18 21:23 Dose: 30 mg Nifedipine (Procardia Xl -) 60 mg PO BID [facility] Last Admin: 10/03/18 21:25 Dose: 60 mg Non-Formulary Medication (Olmesartan Medoxomil) 40 mg PO DAILY [facility] Last Admin: 10/04/18 09:13 Dose: 40 mg Ondansetron HCl (Zofran Injection) 4 mg IVPB Q6H PRN PRN Reason: NAUSEA Last Admin: 10/02/18 15:25 Dose: 4 mg Pancrelipase (Creon Dr 36,000 Units Capsule) 1 cap PO TIDCM [facility] Last Admin: 10/04/18 09:03 Dose: 1 cap Pantoprazole Sodium (Protonix -) 40 mg PO DAILY [facility] Last Admin: 10/04/18 09:11 Dose: 40 mg Polyethylene Glycol (Miralax (For Daily Use) -) 17 gm PO DAILY [facility] Last Admin: 10/04/18 09:14 Dose: Not Given Potassium Chloride (K-Dur -) 20 meq PO DAILY [facility] Last Admin: 10/04/18 09:11 Dose: 20 meq Senna (Senna -) 2 tab PO HS PRN PRN Reason: CONSTIPATION Last Admin: 09/28/18 21:09 Dose: 2 tab - Objective Vital Signs: Vital Signs Temperature 97.8 F 10/04/18 06:00 Pulse Rate 60 10/04/18 06:00 Respiratory Rate 18 10/04/18 06:00 Blood Pressure 185/61 H 10/04/18 06:00 O2 Sat by Pulse Oximetry (%) 96 10/03/18 20:10 Constitutional: Yes: Calm Eyes: Yes: Conjunctiva Clear HENT: Yes: Atraumatic Neck: Yes: Supple Cardiovascular: Yes: S1, S2 Respiratory: Yes: CTA Bilaterally Gastrointestinal: Yes: Normal Bowel Sounds, Soft Genitourinary: Yes: WNL Musculoskeletal: Yes: WNL Edema: Yes Edema: LLE: Trace, RLE: Trace Neurological: Yes: Oriented Psychiatric: Yes: Oriented Labs: CBC, BMP 10/04/18 09:25 10/04/18 09:25 Problem List - Problems (1) CHF (congestive heart failure) Code(s): I50.9 - HEART FAILURE, UNSPECIFIED Qualifiers: (2) CKD (chronic kidney disease) Code(s): N18.9 - CHRONIC KIDNEY DISEASE, UNSPECIFIED Assessment/Plan Current Medications Generic Name Dose Route Start Last Admin Trade Name Freq PRN Reason Stop Dose Admin Acetaminophen 650 mg 09/23/18 15:59 Tylenol - PO Q4H PRN PAIN LEVEL 1-5 Aspirin 81 mg 09/24/18 10:00 10/04/18 09:12 Ecotrin - PO 81 mg DAILY [facility] Administration Atorvastatin Calcium 20 mg 09/23/18 22:00 10/03/18 21:26 Lipitor - PO 20 mg HS [facility] Administration Bupropion HCl 150 mg 09/24/18 10:00 10/04/18 09:12 Wellbutrin Xl - PO 150 mg DAILY [facility] Administration Carbidopa/Levodopa 1 each 09/23/18 16:00 10/04/18 05:32 Sinemet 25/100 - PO 1 each TID [facility] Administration Dextrose 25 gm 09/27/18 16:28 D50w (Vial) - IVPUSH PRN PRN HYPOGLYCEMIA Divalproex Sodium 250 mg 09/24/18 10:00 10/04/18 09:11 Depakote - PO 250 mg DAILY [facility] Administration Divalproex Sodium 125 mg 09/23/18 22:00 10/03/18 21:31 Depakote - PO 125 mg HS [facility] Administration Docusate Sodium 100 mg 09/23/18 22:00 10/03/18 21:22 Colace - PO 100 mg HS [facility] Administration Donepezil HCl 10 mg 09/24/18 10:00 10/03/18 09:55 Aricept - PO 10 mg DAILY [facility] Administration Doxazosin Mesylate 1 mg 10/04/18 10:00 Cardura - PO DAILY [facility] Enoxaparin Sodium 30 mg 09/24/18 10:00 10/04/18 09:11 Lovenox - SQ 30 mg DAILY [facility] Administration Ferrous Sulfate 325 mg 09/30/18 10:00 10/04/18 09:12 Feosol - PO 325 mg DAILY [facility] Administration Furosemide 80 mg 09/29/18 06:00 10/04/18 05:30 Lasix - PO 80 mg BID@0600,1400 [facility] Administration Hydralazine HCl 100 mg 09/30/18 11:19 10/04/18 06:20 Apresoline - PO 100 mg TID [facility] Administration Insulin Aspart 1 vial 09/23/18 16:30 10/04/18 05:59 Novolog Vial Sliding Scale - SQ Not Given TIDAC [facility] Protocol Labetalol HCl 400 mg 10/02/18 19:33 10/04/18 05:30 Normodyne - PO 400 mg TID [facility] Administration Levothyroxine Sodium 25 mcg 09/24/18 09:50 10/04/18 06:21 Synthroid - PO 25 mcg DAILY@0700 [facility] Administration Mirtazapine 30 mg 09/26/18 22:00 10/03/18 21:23 Remeron - PO 30 mg HS [facility] Administration Nifedipine 60 mg 09/24/18 13:37 10/03/18 21:25 Procardia Xl - PO 60 mg BID [facility] Administration Non-Formulary Medication 40 mg 09/24/18 10:00 10/04/18 09:13 Olmesartan Medoxomil PO 40 mg DAILY [facility] Administration Ondansetron HCl 4 mg 10/02/18 08:28 10/02/18 15:25 Zofran Injection IVPB 4 mg Q6H PRN Administration NAUSEA Pancrelipase 1 cap 09/23/18 17:30 10/04/18 09:03 Elaine Sweeney 36,000 Units Capsule PO 1 cap TIDCM [facility] Administration Pantoprazole Sodium 40 mg 09/24/18 10:00 10/04/18 09:11 Protonix - PO 40 mg DAILY [facility] Administration Polyethylene Glycol 17 gm 09/27/18 16:45 10/04/18 09:14 Miralax (For Daily Use) - PO Not Given DAILY [facility] Potassium Chloride 20 meq 09/24/18 10:00 10/04/18 09:11 K-Dur - PO 20 meq DAILY [facility] Administration Senna 2 tab 09/28/18 10:28 09/28/18 21:09 Senna - PO 2 tab HS PRN Administration CONSTIPATION Impression 1. JASPER/CKD 2. fluid overload 3. HLD 4. shortness of breath 5. HTN 6. DM 7. proteinuria Impression - creatinine is improving - cont lasix - cont arb - bp remains labile, cardio input appreciated - will need outpt follow up
[2018-10-04] MEDS: NIFEdipine E.R 60 MG TABLET (UD) PO SCH ×2 (11:54→21:44)
--- NOTE | 2018-10-04 12:18 | PN ---
Progress Note (short form) - Note Progress Note: OOB to chair. Overall appears improved. No acute events overnight. Intake & Output 10/01/18 10/02/18 10/03/18 10/04/18 23:59 23:59 23:59 23:59 Intake Total 10 350 570 120 Balance 10 350 570 120 Weight 134 lb 12.8 oz Last Vital Signs Temp Pulse Resp BP Pulse Ox 97.8 F 60 18 185/61 H 96 10/04/18 06:00 10/04/18 06:00 10/04/18 06:00 10/04/18 06:00 10/03/18 20:10 Active Medications Acetaminophen (Tylenol -) 650 mg PO Q4H PRN PRN Reason: PAIN LEVEL 1-5 Aspirin (Ecotrin -) 81 mg PO DAILY [facility] Last Admin: 10/04/18 09:12 Dose: 81 mg Atorvastatin Calcium (Lipitor -) 20 mg PO HS [facility] Last Admin: 10/03/18 21:26 Dose: 20 mg Bupropion HCl (Wellbutrin Xl -) 150 mg PO DAILY [facility] Last Admin: 10/04/18 09:12 Dose: 150 mg Carbidopa/Levodopa (Sinemet 25/100 -) 1 each PO TID [facility] Last Admin: 10/04/18 05:32 Dose: 1 each Dextrose (D50w (Vial) -) 25 gm IVPUSH PRN PRN PRN Reason: HYPOGLYCEMIA Divalproex Sodium (Depakote -) 250 mg PO DAILY [facility] Last Admin: 10/04/18 09:11 Dose: 250 mg Divalproex Sodium (Depakote -) 125 mg PO HS [facility] Last Admin: 10/03/18 21:31 Dose: 125 mg Docusate Sodium (Colace -) 100 mg PO HS [facility] Last Admin: 10/03/18 21:22 Dose: 100 mg Donepezil HCl (Aricept -) 10 mg PO DAILY [facility] Last Admin: 10/03/18 09:55 Dose: 10 mg Doxazosin Mesylate (Cardura -) 1 mg PO DAILY [facility] Enoxaparin Sodium (Lovenox -) 30 mg SQ DAILY [facility] Last Admin: 10/04/18 09:11 Dose: 30 mg Ferrous Sulfate (Feosol -) 325 mg PO DAILY [facility] Last Admin: 10/04/18 09:12 Dose: 325 mg Furosemide (Lasix -) 80 mg PO BID@0600,1400 [facility] Last Admin: 10/04/18 05:30 Dose: 80 mg Hydralazine HCl (Apresoline -) 100 mg PO TID [facility] Last Admin: 10/04/18 06:20 Dose: 100 mg Insulin Aspart (Novolog Vial Sliding Scale -) 1 vial SQ TIDAC [facility]; Protocol Last Admin: 10/04/18 12:17 Dose: 4 units Labetalol HCl (Normodyne -) 400 mg PO TID [facility] Last Admin: 10/04/18 05:30 Dose: 400 mg Levothyroxine Sodium (Synthroid -) 25 mcg PO DAILY@0700 [facility] Last Admin: 10/04/18 06:21 Dose: 25 mcg Mirtazapine (Remeron -) 30 mg PO HS [facility] Last Admin: 10/03/18 21:23 Dose: 30 mg Nifedipine (Procardia Xl -) 60 mg PO BID [facility] Last Admin: 10/04/18 11:54 Dose: 60 mg Non-Formulary Medication (Olmesartan Medoxomil) 40 mg PO DAILY [facility] Last Admin: 10/04/18 09:13 Dose: 40 mg Ondansetron HCl (Zofran Injection) 4 mg IVPB Q6H PRN PRN Reason: NAUSEA Last Admin: 10/02/18 15:25 Dose: 4 mg Pancrelipase (Creon Dr 36,000 Units Capsule) 1 cap PO TIDCM [facility] Last Admin: 10/04/18 09:03 Dose: 1 cap Pantoprazole Sodium (Protonix -) 40 mg PO DAILY [facility] Last Admin: 10/04/18 09:11 Dose: 40 mg Polyethylene Glycol (Miralax (For Daily Use) -) 17 gm PO DAILY [facility] Last Admin: 10/04/18 09:14 Dose: Not Given Potassium Chloride (K-Dur -) 20 meq PO DAILY [facility] Last Admin: 10/04/18 09:11 Dose: 20 meq Senna (Senna -) 2 tab PO HS PRN PRN Reason: CONSTIPATION Last Admin: 09/28/18 21:09 Dose: 2 tab Gen: NAD Heart: RRR Lung: decreased breath sounds at the bases Abd: soft, nontender Ext: + edema Laboratory Results - last 24 hr 10/03/18 10/03/18 10/04/18 16:28 22:10 05:55 WBC RBC Hgb Hct MCV MCH MCHC RDW Plt Count MPV Absolute Neuts (auto) Neutrophils % Lymphocytes % Monocytes % Eosinophils % Basophils % Nucleated RBC % Sodium Potassium Chloride Carbon Dioxide Anion Gap BUN Creatinine Est GFR (CKD-EPI)AfAm Est GFR (CKD-EPI)NonAf POC Glucometer 168 213 174 Random Glucose Calcium Total Bilirubin AST ALT Alkaline Phosphatase Total Protein Albumin 10/04/18 10/04/18 10/04/18 09:25 09:25 11:48 WBC 6.8 RBC 3.21 L Hgb 8.6 L Hct 26.1 L MCV 81.4 MCH 26.9 MCHC 33.0 RDW 18.2 H Plt Count 407 MPV 7.6 Absolute Neuts (auto) 4.9 Neutrophils % 73.0 Lymphocytes % 12.2 D Monocytes % 10.3 H Eosinophils % 3.9 Basophils % 0.6 Nucleated RBC % 0 Sodium 141 Potassium 4.5 Chloride 99 Carbon Dioxide 38 H Anion Gap 4 L BUN 31.2 H Creatinine 1.6 H Est GFR (CKD-EPI)AfAm 35.90 Est GFR (CKD-EPI)NonAf 30.98 POC Glucometer 275 Random Glucose 228 H Calcium 8.6 Total Bilirubin 0.4 AST 11 L ALT 6 L Alkaline Phosphatase 99 Total Protein 6.6 Albumin 3.0 L Problem List - Problems (1) Acute on chronic diastolic (congestive) heart failure Code(s): I50.33 - ACUTE ON CHRONIC DIASTOLIC (CONGESTIVE) HEART FAILURE (2) CKD (chronic kidney disease) Code(s): N18.9 - CHRONIC KIDNEY DISEASE, UNSPECIFIED (3) Diabetes Code(s): E11.9 - TYPE 2 DIABETES MELLITUS WITHOUT COMPLICATIONS (4) HLD (hyperlipidemia) Code(s): E78.5 - HYPERLIPIDEMIA, UNSPECIFIED (5) HTN (hypertension) Code(s): I10 - ESSENTIAL (PRIMARY) HYPERTENSION (6) Pleural effusion Code(s): J90 - PLEURAL EFFUSION, NOT ELSEWHERE CLASSIFIED A/P Acute on Chronic Diastolic Heart Failure Poorly Controlled HTN Pulmonary HTN Acute on Chronic Renal Failure DM Hyperlipidemia Parkinsons Anemia Lasix O2 to keep Spo2 >90% VTE prophylaxis D/C planning Dr Zee
[2018-10-04] MEDS: DONEPEZIL HCL 10 MG TABLET (FP) PO SCH (18:09)
[2018-10-04] MEDS: DOCUSATE SODIUM 100 MG CAPSULE (FP) PO SCH (21:43)
[2018-10-04] MEDS: ATORVASTATIN CA 20 MG TABLET (FP) PO SCH (21:44)
[2018-10-04] MEDS: MIRTAZAPINE 15 MG TABLET (FP) PO SCH (21:44)
[2018-10-04] MEDS: DIVALPROEX SODIUM 125 MG TABLET E.C. PO SCH (23:22)
[2018-10-05] MEDS: FUROSEMIDE 40 MG TABLET (FP) PO SCH ×2 (06:40→14:12)
[2018-10-05] MEDS: INSULIN SLIDING SCALE (NOVOLOG) 1 VIAL SQ SCH ×3 (06:40→16:22)
[2018-10-05] MEDS: hydrALAZINE HCL 50 MG TABLET (FP) PO SCH ×3 (06:40→21:25)
[2018-10-05] MEDS: LABETALOL HCL 200 MG TABLET (FP) PO SCH ×3 (06:40→21:27)
[2018-10-05] MEDS: LEVOTHYROXINE NA 25 MCG TABLET (FP) PO SCH (07:01)
[2018-10-05] MEDS: ONDANSETRON 4 MG/2 ML VIAL IVPB PRN (07:01)
[2018-10-05] MEDS: CARBIDOPA/LEVODOPA 25/100 TABLET (FP) PO SCH ×3 (07:01→21:24)
[2018-10-05] MEDS ORDERED: DOXAZOSIN MESYLATE 1 MG TABLET PO SCH (07:10)
[2018-10-05] MEDS: LIPASE/PROTEASE/AMYLASE 36,000 UNIT CAPSULE PO SCH ×3 (08:15→16:35)
[2018-10-05] MEDS: PATIENT'S OWN MEDICATION (NON-FORMULARY) (Olmesartan Medoxomil 40 MG) PO SCH (10:10)
[2018-10-05] MEDS: PANTOPRAZOLE 40 MG TABLET (FP) PO SCH (10:16)
[2018-10-05] MEDS: POTASSIUM CHLORIDE TABS 20 MEQ TABLET.ER (FP) PO SCH (10:16)
[2018-10-05] MEDS: FERROUS SO4 325 MG TABLET (FP) PO SCH (10:17)
[2018-10-05] MEDS: DONEPEZIL HCL 10 MG TABLET (FP) PO SCH (10:17)
[2018-10-05] MEDS: DIVALPROEX SODIUM 250 MG TABLET E.C. PO SCH (10:17)
[2018-10-05] MEDS: ASPIRIN COATED 81 MG TABLET.EC PO SCH (10:18)
[2018-10-05] MEDS: ENOXAPARIN NA (PORCINE) 30 MG/0.3 ML DISP.SYRIN SQ SCH (10:20)
[2018-10-05] MEDS: NIFEdipine E.R 60 MG TABLET (UD) PO SCH ×2 (10:20→21:25)
[2018-10-05] MEDS: POLYETHYLENE GLYCOL 3350 119 GM BTL PO SCH (10:51)
--- NOTE | 2018-10-05 11:43 | PN ---
Progress Note, Physician History of Present Illness: Pt seen and examined at bedside. She is awake and alert. She denies shortness of breath. - Current Medication List Current Medications: Active Medications Acetaminophen (Tylenol -) 650 mg PO Q4H PRN PRN Reason: PAIN LEVEL 1-5 Aspirin (Ecotrin -) 81 mg PO DAILY [facility] Last Admin: 10/05/18 10:18 Dose: 81 mg Atorvastatin Calcium (Lipitor -) 20 mg PO HS [facility] Last Admin: 10/04/18 21:44 Dose: 20 mg Bupropion HCl (Wellbutrin Xl -) 150 mg PO DAILY [facility] Last Admin: 10/05/18 10:17 Dose: 150 mg Carbidopa/Levodopa (Sinemet 25/100 -) 1 each PO TID [facility] Last Admin: 10/05/18 07:01 Dose: 1 each Dextrose (D50w (Vial) -) 25 gm IVPUSH PRN PRN PRN Reason: HYPOGLYCEMIA Divalproex Sodium (Depakote -) 250 mg PO DAILY [facility] Last Admin: 10/05/18 10:17 Dose: 250 mg Divalproex Sodium (Depakote -) 125 mg PO HS [facility] Last Admin: 10/04/18 23:22 Dose: 125 mg Docusate Sodium (Colace -) 100 mg PO HS [facility] Last Admin: 10/04/18 21:43 Dose: 100 mg Donepezil HCl (Aricept -) 10 mg PO DAILY [facility] Last Admin: 10/05/18 10:17 Dose: 10 mg Doxazosin Mesylate (Cardura -) 2 mg PO DAILY [facility] Last Admin: 10/05/18 10:19 Dose: 2 mg Enoxaparin Sodium (Lovenox -) 30 mg SQ DAILY [facility] Last Admin: 10/05/18 10:20 Dose: 30 mg Ferrous Sulfate (Feosol -) 325 mg PO DAILY [facility] Last Admin: 10/05/18 10:17 Dose: 325 mg Furosemide (Lasix -) 80 mg PO BID@0600,1400 [facility] Last Admin: 10/05/18 06:40 Dose: 80 mg Hydralazine HCl (Apresoline -) 100 mg PO TID [facility] Last Admin: 10/05/18 06:40 Dose: 100 mg Insulin Aspart (Novolog Vial Sliding Scale -) 1 vial SQ TIDAC [facility]; Protocol Last Admin: 10/05/18 06:40 Dose: Not Given Labetalol HCl (Normodyne -) 400 mg PO TID [facility] Last Admin: 10/05/18 06:40 Dose: 400 mg Levothyroxine Sodium (Synthroid -) 25 mcg PO DAILY@0700 [facility] Last Admin: 10/05/18 07:01 Dose: 25 mcg Mirtazapine (Remeron -) 30 mg PO HS [facility] Last Admin: 10/04/18 21:44 Dose: 30 mg Nifedipine (Procardia Xl -) 60 mg PO BID [facility] Last Admin: 10/05/18 10:20 Dose: 60 mg Non-Formulary Medication (Olmesartan Medoxomil) 40 mg PO DAILY [facility] Last Admin: 10/04/18 09:13 Dose: 40 mg Ondansetron HCl (Zofran Injection) 4 mg IVPB Q6H PRN PRN Reason: NAUSEA Last Admin: 10/02/18 15:25 Dose: 4 mg Pancrelipase (Creon Dr 36,000 Units Capsule) 1 cap PO TIDCM [facility] Last Admin: 10/05/18 08:15 Dose: 1 cap Pantoprazole Sodium (Protonix -) 40 mg PO DAILY [facility] Last Admin: 10/05/18 10:16 Dose: 40 mg Polyethylene Glycol (Miralax (For Daily Use) -) 17 gm PO DAILY [facility] Last Admin: 10/04/18 09:14 Dose: Not Given Potassium Chloride (K-Dur -) 20 meq PO DAILY [facility] Last Admin: 10/05/18 10:16 Dose: 20 meq Senna (Senna -) 2 tab PO HS PRN PRN Reason: CONSTIPATION Last Admin: 09/28/18 21:09 Dose: 2 tab - Objective Vital Signs: Vital Signs Temperature 98.3 F 10/05/18 06:42 Pulse Rate 57 L 10/05/18 06:42 Respiratory Rate 18 10/05/18 06:42 Blood Pressure 180/51 H 10/05/18 06:42 O2 Sat by Pulse Oximetry (%) 96 10/04/18 21:00 Constitutional: Yes: Calm Eyes: Yes: Conjunctiva Clear HENT: Yes: Atraumatic Cardiovascular: Yes: S1, S2 Respiratory: Yes: CTA Bilaterally Gastrointestinal: Yes: Soft Genitourinary: Yes: WNL Musculoskeletal: Yes: WNL Edema: No Neurological: Yes: Oriented Psychiatric: Yes: Oriented Labs: CBC, BMP 10/04/18 09:25 10/04/18 09:25 Problem List - Problems (1) CHF (congestive heart failure) Code(s): I50.9 - HEART FAILURE, UNSPECIFIED Qualifiers: (2) CKD (chronic kidney disease) Code(s): N18.9 - CHRONIC KIDNEY DISEASE, UNSPECIFIED Assessment/Plan Current Medications Generic Name Dose Route Start Last Admin Trade Name Freq PRN Reason Stop Dose Admin Acetaminophen 650 mg 09/23/18 15:59 Tylenol - PO Q4H PRN PAIN LEVEL 1-5 Aspirin 81 mg 09/24/18 10:00 10/05/18 10:18 Ecotrin - PO 81 mg DAILY [facility] Administration Atorvastatin Calcium 20 mg 09/23/18 22:00 10/04/18 21:44 Lipitor - PO 20 mg HS [facility] Administration Bupropion HCl 150 mg 09/24/18 10:00 10/05/18 10:17 Wellbutrin Xl - PO 150 mg DAILY [facility] Administration Carbidopa/Levodopa 1 each 09/23/18 16:00 10/05/18 07:01 Sinemet 25/100 - PO 1 each TID [facility] Administration Dextrose 25 gm 09/27/18 16:28 D50w (Vial) - IVPUSH PRN PRN HYPOGLYCEMIA Divalproex Sodium 250 mg 09/24/18 10:00 10/05/18 10:17 Depakote - PO 250 mg DAILY [facility] Administration Divalproex Sodium 125 mg 09/23/18 22:00 10/04/18 23:22 Depakote - PO 125 mg HS [facility] Administration Docusate Sodium 100 mg 09/23/18 22:00 10/04/18 21:43 Colace - PO 100 mg HS [facility] Administration Donepezil HCl 10 mg 09/24/18 10:00 10/05/18 10:17 Aricept - PO 10 mg DAILY [facility] Administration Doxazosin Mesylate 2 mg 10/05/18 07:10 10/05/18 10:19 Cardura - PO 2 mg DAILY [facility] Administration Enoxaparin Sodium 30 mg 09/24/18 10:00 10/05/18 10:20 Lovenox - SQ 30 mg DAILY [facility] Administration Ferrous Sulfate 325 mg 09/30/18 10:00 10/05/18 10:17 Feosol - PO 325 mg DAILY [facility] Administration Furosemide 80 mg 09/29/18 06:00 10/05/18 06:40 Lasix - PO 80 mg BID@0600,1400 [facility] Administration Hydralazine HCl 100 mg 09/30/18 11:19 10/05/18 06:40 Apresoline - PO 100 mg TID [facility] Administration Insulin Aspart 1 vial 09/23/18 16:30 10/05/18 06:40 Novolog Vial Sliding Scale - SQ Not Given TIDAC [facility] Protocol Labetalol HCl 400 mg 10/02/18 19:33 10/05/18 06:40 Normodyne - PO 400 mg TID [facility] Administration Levothyroxine Sodium 25 mcg 09/24/18 09:50 10/05/18 07:01 Synthroid - PO 25 mcg DAILY@0700 [facility] Administration Mirtazapine 30 mg 09/26/18 22:00 10/04/18 21:44 Remeron - PO 30 mg HS [facility] Administration Nifedipine 60 mg 09/24/18 13:37 10/05/18 10:20 Procardia Xl - PO 60 mg BID [facility] Administration Non-Formulary Medication 40 mg 09/24/18 10:00 10/04/18 09:13 Olmesartan Medoxomil PO 40 mg DAILY [facility] Administration Ondansetron HCl 4 mg 10/02/18 08:28 10/02/18 15:25 Zofran Injection IVPB 4 mg Q6H PRN Administration NAUSEA Pancrelipase 1 cap 09/23/18 17:30 10/05/18 08:[address] 36,000 Units Capsule PO 1 cap TIDCM [facility] Administration Pantoprazole Sodium 40 mg 09/24/18 10:00 10/05/18 10:16 Protonix - PO 40 mg DAILY [facility] Administration Polyethylene Glycol 17 gm 09/27/18 16:45 10/04/18 09:14 Miralax (For Daily Use) - PO Not Given DAILY [facility] Potassium Chloride 20 meq 09/24/18 10:00 10/05/18 10:16 K-Dur - PO 20 meq DAILY [facility] Administration Senna 2 tab 09/28/18 10:28 09/28/18 21:09 Senna - PO 2 tab HS PRN Administration CONSTIPATION Impression 1. JASPER/CKD 2. fluid overload 3. HLD 4. shortness of breath 5. HTN 6. DM 7. proteinuria Impression - bp remains labile - cont bp meds, repeat after am meds - bradycardia limiting choice of bp meds - hydralazine increase to 100 tid - cardiology follow up - cont lasix - cont arb - will need outpt follow up
--- NOTE | 2018-10-05 13:48 | PN ---
Progress Note (short form) - Note Progress Note: PULMONARY Denies shortness of breath. Saturating well on room air. Blood pressure labile. Vital Signs Period Temp Pulse Resp BP Sys/East Pulse Ox Last 24 Hr 98.2 F-98.4 F 55-88 - 135-210/41-62 96 Gen: NAD at rest Heart: RRR Lung: decreased breath sounds at the bases Abd: soft, nontender Ext: no edema CBC, BMP 10/04/18 09:25 10/04/18 09:25 Active Medications Acetaminophen (Tylenol -) 650 mg PO Q4H PRN PRN Reason: PAIN LEVEL 1-5 Aspirin (Ecotrin -) 81 mg PO DAILY [facility] Last Admin: 10/05/18 10:18 Dose: 81 mg Atorvastatin Calcium (Lipitor -) 20 mg PO HS [facility] Last Admin: 10/04/18 21:44 Dose: 20 mg Bupropion HCl (Wellbutrin Xl -) 150 mg PO DAILY [facility] Last Admin: 10/05/18 10:17 Dose: 150 mg Carbidopa/Levodopa (Sinemet 25/100 -) 1 each PO TID [facility] Last Admin: 10/05/18 07:01 Dose: 1 each Dextrose (D50w (Vial) -) 25 gm IVPUSH PRN PRN PRN Reason: HYPOGLYCEMIA Divalproex Sodium (Depakote -) 250 mg PO DAILY [facility] Last Admin: 10/05/18 10:17 Dose: 250 mg Divalproex Sodium (Depakote -) 125 mg PO HS [facility] Last Admin: 10/04/18 23:22 Dose: 125 mg Docusate Sodium (Colace -) 100 mg PO HS [facility] Last Admin: 10/04/18 21:43 Dose: 100 mg Donepezil HCl (Aricept -) 10 mg PO DAILY [facility] Last Admin: 10/05/18 10:17 Dose: 10 mg Doxazosin Mesylate (Cardura -) 2 mg PO DAILY [facility] Last Admin: 10/05/18 10:19 Dose: 2 mg Enoxaparin Sodium (Lovenox -) 30 mg SQ DAILY [facility] Last Admin: 10/05/18 10:20 Dose: 30 mg Ferrous Sulfate (Feosol -) 325 mg PO DAILY [facility] Last Admin: 10/05/18 10:17 Dose: 325 mg Furosemide (Lasix -) 80 mg PO BID@0600,1400 [facility] Last Admin: 10/05/18 06:40 Dose: 80 mg Hydralazine HCl (Apresoline -) 100 mg PO TID [facility] Last Admin: 10/05/18 06:40 Dose: 100 mg Insulin Aspart (Novolog Vial Sliding Scale -) 1 vial SQ TIDAC [facility]; Protocol Last Admin: 10/05/18 06:40 Dose: Not Given Labetalol HCl (Normodyne -) 400 mg PO TID [facility] Last Admin: 10/05/18 06:40 Dose: 400 mg Levothyroxine Sodium (Synthroid -) 25 mcg PO DAILY@0700 [facility] Last Admin: 10/05/18 07:01 Dose: 25 mcg Mirtazapine (Remeron -) 30 mg PO HS [facility] Last Admin: 10/04/18 21:44 Dose: 30 mg Nifedipine (Procardia Xl -) 60 mg PO BID [facility] Last Admin: 10/05/18 10:20 Dose: 60 mg Non-Formulary Medication (Olmesartan Medoxomil) 40 mg PO DAILY [facility] Last Admin: 10/04/18 09:13 Dose: 40 mg Ondansetron HCl (Zofran Injection) 4 mg IVPB Q6H PRN PRN Reason: NAUSEA Last Admin: 10/02/18 15:25 Dose: 4 mg Pancrelipase (Creon Dr 36,000 Units Capsule) 1 cap PO TIDCM [facility] Last Admin: 10/05/18 08:15 Dose: 1 cap Pantoprazole Sodium (Protonix -) 40 mg PO DAILY [facility] Last Admin: 10/05/18 10:16 Dose: 40 mg Polyethylene Glycol (Miralax (For Daily Use) -) 17 gm PO DAILY [facility] Last Admin: 10/04/18 09:14 Dose: Not Given Potassium Chloride (K-Dur -) 20 meq PO DAILY [facility] Last Admin: 10/05/18 10:16 Dose: 20 meq Senna (Senna -) 2 tab PO HS PRN PRN Reason: CONSTIPATION Last Admin: 09/28/18 21:09 Dose: 2 tab A/P Acute on Chronic Diastolic Heart Failure Poorly Controlled HTN Pulmonary HTN Acute on Chronic Renal Failure DM Hyperlipidemia Parkinsons Anemia - continue lasix - monitor urine output, creatinine - daily weights - O2 to keep Spo2 >90% - beta curtis - BP control - DVT prophylaxis Problem List - Problems (1) Acute on chronic diastolic (congestive) heart failure Code(s): I50.33 - ACUTE ON CHRONIC DIASTOLIC (CONGESTIVE) HEART FAILURE (2) CKD (chronic kidney disease) Code(s): N18.9 - CHRONIC KIDNEY DISEASE, UNSPECIFIED (3) Diabetes Code(s): E11.9 - TYPE 2 DIABETES MELLITUS WITHOUT COMPLICATIONS (4) HLD (hyperlipidemia) Code(s): E78.5 - HYPERLIPIDEMIA, UNSPECIFIED (5) HTN (hypertension) Code(s): I10 - ESSENTIAL (PRIMARY) HYPERTENSION (6) Pleural effusion Code(s): J90 - PLEURAL EFFUSION, NOT ELSEWHERE CLASSIFIED
--- NOTE | 2018-10-05 13:59 | PN ---
Progress Note, Physician Chief Complaint: CHF Exacerbation Anemia Hypothyroidism Anemia History of Present Illness: Previous notes and events reviewed awake and alert NAD patient has been having poor appetite and refusing food because it does not have "salt" Systolic BP >200 this morning, started on Cardura daily--current BP 129/52 denies chest pain or palpitations spoke with daughter Linda, will monitor BP during night if systolic BP stays <180 will discharge home in AM - Current Medication List Current Medications: Active Medications Acetaminophen (Tylenol -) 650 mg PO Q4H PRN PRN Reason: PAIN LEVEL 1-5 Aspirin (Ecotrin -) 81 mg PO DAILY [facility] Last Admin: 10/05/18 10:18 Dose: 81 mg Atorvastatin Calcium (Lipitor -) 20 mg PO HS [facility] Last Admin: 10/04/18 21:44 Dose: 20 mg Bupropion HCl (Wellbutrin Xl -) 150 mg PO DAILY [facility] Last Admin: 10/05/18 10:17 Dose: 150 mg Carbidopa/Levodopa (Sinemet 25/100 -) 1 each PO TID [facility] Last Admin: 10/05/18 07:01 Dose: 1 each Dextrose (D50w (Vial) -) 25 gm IVPUSH PRN PRN PRN Reason: HYPOGLYCEMIA Divalproex Sodium (Depakote -) 250 mg PO DAILY [facility] Last Admin: 10/05/18 10:17 Dose: 250 mg Divalproex Sodium (Depakote -) 125 mg PO HS [facility] Last Admin: 10/04/18 23:22 Dose: 125 mg Docusate Sodium (Colace -) 100 mg PO HS [facility] Last Admin: 10/04/18 21:43 Dose: 100 mg Donepezil HCl (Aricept -) 10 mg PO DAILY [facility] Last Admin: 10/05/18 10:17 Dose: 10 mg Doxazosin Mesylate (Cardura -) 2 mg PO DAILY [facility] Last Admin: 10/05/18 10:19 Dose: 2 mg Enoxaparin Sodium (Lovenox -) 30 mg SQ DAILY [facility] Last Admin: 10/05/18 10:20 Dose: 30 mg Ferrous Sulfate (Feosol -) 325 mg PO DAILY [facility] Last Admin: 10/05/18 10:17 Dose: 325 mg Furosemide (Lasix -) 80 mg PO BID@0600,1400 [facility] Last Admin: 10/05/18 06:40 Dose: 80 mg Hydralazine HCl (Apresoline -) 100 mg PO TID [facility] Last Admin: 10/05/18 06:40 Dose: 100 mg Insulin Aspart (Novolog Vial Sliding Scale -) 1 vial SQ TIDAC [facility]; Protocol Last Admin: 10/05/18 06:40 Dose: Not Given Labetalol HCl (Normodyne -) 400 mg PO TID [facility] Last Admin: 10/05/18 06:40 Dose: 400 mg Levothyroxine Sodium (Synthroid -) 25 mcg PO DAILY@0700 [facility] Last Admin: 10/05/18 07:01 Dose: 25 mcg Mirtazapine (Remeron -) 30 mg PO HS [facility] Last Admin: 10/04/18 21:44 Dose: 30 mg Nifedipine (Procardia Xl -) 60 mg PO BID [facility] Last Admin: 10/05/18 10:20 Dose: 60 mg Non-Formulary Medication (Olmesartan Medoxomil) 40 mg PO DAILY [facility] Last Admin: 10/04/18 09:13 Dose: 40 mg Ondansetron HCl (Zofran Injection) 4 mg IVPB Q6H PRN PRN Reason: NAUSEA Last Admin: 10/02/18 15:25 Dose: 4 mg Pancrelipase (Creon Dr 36,000 Units Capsule) 1 cap PO TIDCM [facility] Last Admin: 10/05/18 08:15 Dose: 1 cap Pantoprazole Sodium (Protonix -) 40 mg PO DAILY [facility] Last Admin: 10/05/18 10:16 Dose: 40 mg Polyethylene Glycol (Miralax (For Daily Use) -) 17 gm PO DAILY [facility] Last Admin: 10/04/18 09:14 Dose: Not Given Potassium Chloride (K-Dur -) 20 meq PO DAILY [facility] Last Admin: 10/05/18 10:16 Dose: 20 meq Senna (Senna -) 2 tab PO HS PRN PRN Reason: CONSTIPATION Last Admin: 09/28/18 21:09 Dose: 2 tab - Objective Vital Signs: Vital Signs Temperature 98.4 F 10/05/18 13:33 Pulse Rate 60 10/05/18 13:33 Respiratory Rate 18 10/05/18 06:42 Blood Pressure 180/51 H 10/05/18 06:42 O2 Sat by Pulse Oximetry (%) 96 10/04/18 21:00 Constitutional: Yes: No Distress, Calm Eyes: Yes: Conjunctiva Clear HENT: Yes: Atraumatic Cardiovascular: Yes: Regular Rate and Rhythm Respiratory: Yes: Regular, CTA Bilaterally, On Nasal O2 Gastrointestinal: Yes: Normal Bowel Sounds, Soft Genitourinary: Yes: Incontinence Musculoskeletal: Yes: Muscle Weakness Edema: No Neurological: Yes: Alert, Oriented Psychiatric: Yes: Alert, Oriented Labs: CBC, BMP 10/04/18 09:25 10/04/18 09:25 Microbiology 09/23/18 14:53 Urine - Urine Clean Catch Urine Culture - Final Normal Urogenital Charis Problem List - Problems (1) Hypothyroidism Assessment/Plan: -Levothyroxine -repeat TSH as outpatient in 6 weeks Code(s): E03.9 - HYPOTHYROIDISM, UNSPECIFIED (2) JASPER (acute kidney injury) Assessment/Plan: -renal on board -BUN/Cr 31.2/1.6 -monitor renal function -will need outpatient renal follow up Code(s): N17.9 - ACUTE KIDNEY FAILURE, UNSPECIFIED (3) Anemia Assessment/Plan: -Hg 8.6 -Ferrous Sulfate Code(s): D64.9 - ANEMIA, UNSPECIFIED (4) Constipation Assessment/Plan: -Colace, Miralax, and Senna Code(s): K59.00 - CONSTIPATION, UNSPECIFIED (5) Diabetes Assessment/Plan: -BGM ACHS -diabetic diet -ISS -D50 IVP prn if BS <70mg/dL Code(s): E11.9 - TYPE 2 DIABETES MELLITUS WITHOUT COMPLICATIONS (6) HLD (hyperlipidemia) Assessment/Plan: -Atorvastatin Code(s): E78.5 - HYPERLIPIDEMIA, UNSPECIFIED (7) HTN (hypertension) Assessment/Plan: -Hydralazine, Labetolol, Nifedine -low Na diet -hold if SBP <110 and/or DBP <60, hold Labetolol for HR <60bpm -hold Labetolol dose if HR <60bpm Code(s): I10 - ESSENTIAL (PRIMARY) HYPERTENSION (8) Acute on chronic diastolic (congestive) heart failure Assessment/Plan: -Cardiology on board -daily weights -1L fluid restriction -tele monitoring -Furosemide daily Code(s): I50.33 - ACUTE ON CHRONIC DIASTOLIC (CONGESTIVE) HEART FAILURE Assessment/Plan see problem list dvt ppx pending d/c in AM
[2018-10-05 15:19] VITALS: BMI 24.3
[2018-10-05] MEDS ORDERED: PT OWN MED DRAWER 7, Y5N ONE ×2 (21:16→21:17)
[2018-10-05] MEDS: DOCUSATE SODIUM 100 MG CAPSULE (FP) PO SCH (21:24)
[2018-10-05] MEDS: ATORVASTATIN CA 20 MG TABLET (FP) PO SCH (21:25)
[2018-10-05] MEDS: MIRTAZAPINE 15 MG TABLET (FP) PO SCH (21:25)
[2018-10-05] MEDS: DIVALPROEX SODIUM 125 MG TABLET E.C. PO SCH (21:27)
[2018-10-06] MEDS ORDERED: PT OWN MED DRAWER 7, Y5N ONE ×3 (06:01→21:47)
[2018-10-06 06:03] LABS: HEMATOCRIT 23.7 % (32.4-45.2); HEMOGLOBIN 7.9 GM/dL (10.7-15.3); MCH 27.2 pg (25.7-33.7); MCHC 33.5 g/dl (32.0-36.0); MEAN CELL VOLUME 81.3 fl (80-96); MEAN PLT VOLUME 7.5 fl (7.5-11.1); PLATELET COUNT 393 K/MM3 (134-434); RBC 2.92 M/mm3 (3.60-5.2); RDW 18.9 % (11.6-15.6)
[2018-10-06] MEDS: LABETALOL HCL 200 MG TABLET (FP) PO SCH ×3 (06:10→21:07)
[2018-10-06] MEDS: FUROSEMIDE 40 MG TABLET (FP) PO SCH ×2 (06:10→13:25)
[2018-10-06] MEDS: CARBIDOPA/LEVODOPA 25/100 TABLET (FP) PO SCH ×3 (06:10→21:08)
[2018-10-06] MEDS: hydrALAZINE HCL 50 MG TABLET (FP) PO SCH ×3 (06:10→21:04)
[2018-10-06] MEDS: INSULIN SLIDING SCALE (NOVOLOG) 1 VIAL SQ SCH ×3 (06:11→15:39)
[2018-10-06] MEDS: LEVOTHYROXINE NA 25 MCG TABLET (FP) PO SCH (06:12)
[2018-10-06 06:24] LABS: ALBUMIN 2.9 g/dl (3.4-5.0); ALK PHOS 91 U/L (45-117); ANION GAP 1 MMOL/L (8-16); BILIRUBIN,TOTAL 0.4 mg/dL (0.2-1); BLOOD UREA NITROGEN 40.2 mg/dL (7-18); CALCIUM 8.6 mg/dL (8.5-10.1); CHLORIDE 100 mmol/L (98-107); CO2 39 mmol/L (21-32); CREATININE 1.8 mg/dL (0.55-1.3); GLUCOSE,RANDOM 215 mg/dL (74-106); POTASSIUM 4.9 mmol/L (3.5-5.1); SGOT/AST 11 U/L (15-37); SGPT/ALT < 6 U/L (13-61); SODIUM 139 mmol/L (136-145); TOT PROT 6.2 g/dl (6.4-8.2)
[2018-10-06] MEDS ORDERED: FUROSEMIDE 40 MG/4 ML INJECTABLE VIAL IVPUSH ONE (06:58)
[2018-10-06] MEDS: ONDANSETRON 4 MG/2 ML VIAL IVPB PRN (07:36)
[2018-10-06] MEDS ORDERED: FUROSEMIDE 40 MG/4 ML INJECTABLE VIAL ONE (07:52)
[2018-10-06] MEDS: LIPASE/PROTEASE/AMYLASE 36,000 UNIT CAPSULE PO SCH ×3 (07:55→16:45)
--- NOTE | 2018-10-06 08:23 | PN ---
Progress Note, Physician - Current Medication List Current Medications: Active Medications Acetaminophen (Tylenol -) 650 mg PO Q4H PRN PRN Reason: PAIN LEVEL 1-5 Aspirin (Ecotrin -) 81 mg PO DAILY [facility] Last Admin: 10/05/18 10:18 Dose: 81 mg Atorvastatin Calcium (Lipitor -) 20 mg PO HS [facility] Last Admin: 10/05/18 21:25 Dose: 20 mg Bupropion HCl (Wellbutrin Xl -) 150 mg PO DAILY [facility] Last Admin: 10/05/18 10:17 Dose: 150 mg Carbidopa/Levodopa (Sinemet 25/100 -) 1 each PO TID [facility] Last Admin: 10/06/18 06:10 Dose: 1 each Dextrose (D50w (Vial) -) 25 gm IVPUSH PRN PRN PRN Reason: HYPOGLYCEMIA Divalproex Sodium (Depakote -) 250 mg PO DAILY [facility] Last Admin: 10/05/18 10:17 Dose: 250 mg Divalproex Sodium (Depakote -) 125 mg PO [facility] Last Admin: 10/05/18 21:27 Dose: 125 mg Docusate Sodium (Colace -) 100 mg PO [facility] Last Admin: 10/05/18 21:24 Dose: 100 mg Donepezil HCl (Aricept -) 10 mg PO DAILY [facility] Last Admin: 10/05/18 10:17 Dose: 10 mg Doxazosin Mesylate (Cardura -) 2 mg PO BID [facility] Enoxaparin Sodium (Lovenox -) 30 mg SQ DAILY [facility] Last Admin: 10/05/18 10:20 Dose: 30 mg Ferrous Sulfate (Feosol -) 325 mg PO DAILY [facility] Last Admin: 10/05/18 10:17 Dose: 325 mg Furosemide (Lasix -) 80 mg PO BID@0600,1400 [facility] Last Admin: 10/06/18 06:10 Dose: 80 mg Hydralazine HCl (Apresoline -) 100 mg PO TID [facility] Last Admin: 10/06/18 06:10 Dose: 100 mg Insulin Aspart (Novolog Vial Sliding Scale -) 1 vial SQ TIDAC [facility]; Protocol Last Admin: 10/06/18 06:11 Dose: Not Given Labetalol HCl (Normodyne -) 400 mg PO TID [facility] Last Admin: 10/06/18 06:10 Dose: 400 mg Levothyroxine Sodium (Synthroid -) 25 mcg PO DAILY@0700 [facility] Last Admin: 10/06/18 06:12 Dose: 25 mcg Mirtazapine (Remeron -) 30 mg PO HS [facility] Last Admin: 10/05/18 21:25 Dose: 30 mg Nifedipine (Procardia Xl -) 60 mg PO BID [facility] Last Admin: 10/05/18 21:25 Dose: 60 mg Non-Formulary Medication (Olmesartan Medoxomil) 40 mg PO DAILY [facility] Last Admin: 10/05/18 10:10 Dose: 40 mg Ondansetron HCl (Zofran Injection) 4 mg IVPB Q6H PRN PRN Reason: NAUSEA Last Admin: 10/06/18 07:36 Dose: 4 mg Pancrelipase (Creon Dr 36,000 Units Capsule) 1 cap PO TIDCM [facility] Last Admin: 10/06/18 07:55 Dose: 1 cap Pantoprazole Sodium (Protonix -) 40 mg PO DAILY [facility] Last Admin: 10/05/18 10:16 Dose: 40 mg Polyethylene Glycol (Miralax (For Daily Use) -) 17 gm PO DAILY [facility] Last Admin: 10/05/18 10:51 Dose: 17 grams Potassium Chloride (K-Dur -) 20 meq PO DAILY [facility] Last Admin: 10/05/18 10:16 Dose: 20 meq Senna (Senna -) 2 tab PO HS PRN PRN Reason: CONSTIPATION Last Admin: 09/28/18 21:09 Dose: 2 tab - Objective Vital Signs: Vital Signs Temperature 98.3 F 10/06/18 07:44 Pulse Rate 58 L 10/06/18 07:44 Respiratory Rate 19 10/06/18 07:44 Blood Pressure 176/53 H 10/06/18 07:44 O2 Sat by Pulse Oximetry (%) 100 10/06/18 06:30 Cardiovascular: Yes: Regular Rate and Rhythm Respiratory: Yes: Regular, CTA Bilaterally Gastrointestinal: Yes: Normal Bowel Sounds, Soft Edema: No Labs: CBC, BMP 10/06/18 05:20 10/06/18 05:20 Assessment/Plan - Problems (1) Hypothyroidism Assessment/Plan: -Levothyroxine -repeat TSH as outpatient in 6 weeks Code(s): E03.9 - HYPOTHYROIDISM, UNSPECIFIED (2) JASPER (acute kidney injury) Assessment/Plan: -renal on board -Stable -monitor renal function -will need outpatient renal follow up Code(s): N17.9 - ACUTE KIDNEY FAILURE, UNSPECIFIED (3) Anemia Assessment/Plan: -Hg 7.9--will Transfuse prbc to improve function -Ferrous Sulfate Code(s): D64.9 - ANEMIA, UNSPECIFIED (4) Constipation Assessment/Plan: -Colace, Miralax, and Senna Code(s): K59.00 - CONSTIPATION, UNSPECIFIED (5) Diabetes Assessment/Plan: -BGM ACHS -diabetic diet -ISS -D50 IVP prn if BS <70mg/dL Code(s): E11.9 - TYPE 2 DIABETES MELLITUS WITHOUT COMPLICATIONS (6) HLD (hyperlipidemia) Assessment/Plan: -Atorvastatin Code(s): E78.5 - HYPERLIPIDEMIA, UNSPECIFIED (7) HTN (hypertension) Assessment/Plan: -Hydralazine, Labetolol, Nifedine -low Na diet -cardura 2 mg bid -hold if SBP <110 and/or DBP <60, hold Labetolol for HR <60bpm -hold Labetolol dose if HR <60bpm Code(s): I10 - ESSENTIAL (PRIMARY) HYPERTENSION (8) Acute on chronic diastolic (congestive) heart failure Assessment/Plan: -Cardiology on board -daily weights -1L fluid restriction -tele monitoring -Furosemide daily Code(s): I50.33 - ACUTE ON CHRONIC DIASTOLIC (CONGESTIVE) HEART FAILURE
[2018-10-06] MEDS: DONEPEZIL HCL 10 MG TABLET (FP) PO SCH (09:06)
[2018-10-06] MEDS: FERROUS SO4 325 MG TABLET (FP) PO SCH (09:07)
[2018-10-06] MEDS: ASPIRIN COATED 81 MG TABLET.EC PO SCH (09:07)
[2018-10-06] MEDS: DIVALPROEX SODIUM 250 MG TABLET E.C. PO SCH (09:07)
[2018-10-06] MEDS: POTASSIUM CHLORIDE TABS 20 MEQ TABLET.ER (FP) PO SCH (09:07)
[2018-10-06] MEDS: ENOXAPARIN NA (PORCINE) 30 MG/0.3 ML DISP.SYRIN SQ SCH (09:07)
[2018-10-06] MEDS: DOXAZOSIN MESYLATE 2 MG TABLET (FP) PO SCH ×2 (09:07→21:05)
[2018-10-06] MEDS: PATIENT'S OWN MEDICATION (NON-FORMULARY) (Olmesartan Medoxomil 40 MG) PO SCH (09:08)
[2018-10-06] MEDS: NIFEdipine E.R 60 MG TABLET (UD) PO SCH ×2 (09:09→21:07)
[2018-10-06] MEDS: PANTOPRAZOLE 40 MG TABLET (FP) PO SCH (09:09)
[2018-10-06] MEDS: POLYETHYLENE GLYCOL 3350 119 GM BTL PO SCH (09:19)
--- NOTE | 2018-10-06 10:59 | PN ---
Progress Note (short form) - Note Progress Note: Resting in NAD. Overall appears improved. No acute events overnight. Intake & Output 10/03/18 10/04/18 10/05/18 10/06/18 23:59 23:59 23:59 23:59 Intake Total 211 540 0984 220 Output Total 200 Balance 315 222 6266 220 Weight 134 lb 12.8 oz 129 lb 0.3 oz 130 lb 6.4 oz Last Vital Signs Temp Pulse Resp BP Pulse Ox 98.3 F 58 L 19 176/53 H 100 10/06/18 07:44 10/06/18 07:44 10/06/18 07:44 10/06/18 07:44 10/06/18 08:59 Active Medications Acetaminophen (Tylenol -) 650 mg PO Q4H PRN PRN Reason: PAIN LEVEL 1-5 Aspirin (Ecotrin -) 81 mg PO DAILY [facility] Last Admin: 10/06/18 09:07 Dose: 81 mg Atorvastatin Calcium (Lipitor -) 20 mg PO HS [facility] Last Admin: 10/05/18 21:25 Dose: 20 mg Bupropion HCl (Wellbutrin Xl -) 150 mg PO DAILY [facility] Last Admin: 10/06/18 09:09 Dose: 150 mg Carbidopa/Levodopa (Sinemet 25/100 -) 1 each PO TID [facility] Last Admin: 10/06/18 06:10 Dose: 1 each Dextrose (D50w (Vial) -) 25 gm IVPUSH PRN PRN PRN Reason: HYPOGLYCEMIA Divalproex Sodium (Depakote -) 250 mg PO DAILY [facility] Last Admin: 10/06/18 09:07 Dose: 250 mg Divalproex Sodium (Depakote -) 125 mg PO HS [facility] Last Admin: 10/05/18 21:27 Dose: 125 mg Docusate Sodium (Colace -) 100 mg PO HS [facility] Last Admin: 10/05/18 21:24 Dose: 100 mg Donepezil HCl (Aricept -) 10 mg PO DAILY [facility] Last Admin: 10/06/18 09:06 Dose: 10 mg Doxazosin Mesylate (Cardura -) 2 mg PO BID [facility] Last Admin: 10/06/18 09:07 Dose: 2 mg Enoxaparin Sodium (Lovenox -) 30 mg SQ DAILY [facility] Last Admin: 10/06/18 09:07 Dose: 30 mg Ferrous Sulfate (Feosol -) 325 mg PO DAILY [facility] Last Admin: 10/06/18 09:07 Dose: 325 mg Furosemide (Lasix -) 80 mg PO BID@0600,1400 [facility] Last Admin: 10/06/18 06:10 Dose: 80 mg Hydralazine HCl (Apresoline -) 100 mg PO TID [facility] Last Admin: 10/06/18 06:10 Dose: 100 mg Insulin Aspart (Novolog Vial Sliding Scale -) 1 vial SQ TIDAC [facility]; Protocol Last Admin: 10/06/18 06:11 Dose: Not Given Labetalol HCl (Normodyne -) 400 mg PO TID [facility] Last Admin: 10/06/18 06:10 Dose: 400 mg Levothyroxine Sodium (Synthroid -) 25 mcg PO DAILY@0700 [facility] Last Admin: 10/06/18 06:12 Dose: 25 mcg Mirtazapine (Remeron -) 30 mg PO HS [facility] Last Admin: 10/05/18 21:25 Dose: 30 mg Nifedipine (Procardia Xl -) 60 mg PO BID [facility] Last Admin: 10/06/18 09:09 Dose: 60 mg Non-Formulary Medication (Olmesartan Medoxomil) 40 mg PO DAILY [facility] Last Admin: 10/06/18 09:08 Dose: 40 mg Ondansetron HCl (Zofran Injection) 4 mg IVPB Q6H PRN PRN Reason: NAUSEA Last Admin: 10/06/18 07:36 Dose: 4 mg Pancrelipase (Creon Dr 36,000 Units Capsule) 1 cap PO TIDCM [facility] Last Admin: 10/06/18 07:55 Dose: 1 cap Pantoprazole Sodium (Protonix -) 40 mg PO DAILY [facility] Last Admin: 10/06/18 09:09 Dose: 40 mg Polyethylene Glycol (Miralax (For Daily Use) -) 17 gm PO DAILY [facility] Last Admin: 10/06/18 09:19 Dose: Not Given Potassium Chloride (K-Dur -) 20 meq PO DAILY [facility] Last Admin: 10/06/18 09:07 Dose: 20 meq Senna (Senna -) 2 tab PO HS PRN PRN Reason: CONSTIPATION Last Admin: 09/28/18 21:09 Dose: 2 tab Gen: NAD Heart: RRR Lung: decreased breath sounds at the bases Abd: soft, nontender Ext: + edema Laboratory Results - last 24 hr 10/05/18 10/05/18 10/06/18 13:30 16:19 05:20 WBC 7.0 RBC 2.92 L Hgb 7.9 L Hct 23.7 L MCV 81.3 MCH 27.2 MCHC 33.5 RDW 18.9 H Plt Count 393 MPV 7.5 Sodium Potassium Chloride Carbon Dioxide Anion Gap BUN Creatinine Est GFR (CKD-EPI)AfAm Est GFR (CKD-EPI)NonAf POC Glucometer 270 315 Random Glucose Calcium Total Bilirubin AST ALT Alkaline Phosphatase Total Protein Albumin Blood Type Antibody Screen Crossmatch 10/06/18 10/06/18 10/06/18 05:20 06:10 08:25 WBC RBC Hgb Hct MCV MCH MCHC RDW Plt Count MPV Sodium 139 Potassium 4.9 Chloride 100 Carbon Dioxide 39 H Anion Gap 1 L BUN 40.2 H Creatinine 1.8 H Est GFR (CKD-EPI)AfAm 31.14 Est GFR (CKD-EPI)NonAf 26.87 POC Glucometer 189 Random Glucose 215 H Calcium 8.6 Total Bilirubin 0.4 AST 11 L ALT < 6 L Alkaline Phosphatase 91 Total Protein 6.2 L Albumin 2.9 L Blood Type A POSITIVE Antibody Screen Negative Crossmatch See Detail Problem List - Problems (1) Acute on chronic diastolic (congestive) heart failure Code(s): I50.33 - ACUTE ON CHRONIC DIASTOLIC (CONGESTIVE) HEART FAILURE (2) CKD (chronic kidney disease) Code(s): N18.9 - CHRONIC KIDNEY DISEASE, UNSPECIFIED (3) Diabetes Code(s): E11.9 - TYPE 2 DIABETES MELLITUS WITHOUT COMPLICATIONS (4) HLD (hyperlipidemia) Code(s): E78.5 - HYPERLIPIDEMIA, UNSPECIFIED (5) HTN (hypertension) Code(s): I10 - ESSENTIAL (PRIMARY) HYPERTENSION (6) Pleural effusion Code(s): J90 - PLEURAL EFFUSION, NOT ELSEWHERE CLASSIFIED A/P Acute on Chronic Diastolic Heart Failure Poorly Controlled HTN Pulmonary HTN Acute on Chronic Renal Failure DM Hyperlipidemia Parkinsons Anemia Lasix O2 to keep Spo2 >90% VTE prophylaxis D/C planning Dr Zee
[2018-10-06] MEDS ORDERED: INSULIN (NOVOLOG) ASPART 100 UNITS/ML 10ML VIAL ONE (11:26)
--- NOTE | 2018-10-06 12:02 | PN ---
Progress Note, Physician History of Present Illness: Pt seen and examined at bedside. She is awake and alert. Her blood pressure remains labile however is improved now. She was started on cardura. - Current Medication List Current Medications: Active Medications Acetaminophen (Tylenol -) 650 mg PO Q4H PRN PRN Reason: PAIN LEVEL 1-5 Aspirin (Ecotrin -) 81 mg PO DAILY [facility] Last Admin: 10/06/18 09:07 Dose: 81 mg Atorvastatin Calcium (Lipitor -) 20 mg PO HS [facility] Last Admin: 10/05/18 21:25 Dose: 20 mg Bupropion HCl (Wellbutrin Xl -) 150 mg PO DAILY [facility] Last Admin: 10/06/18 09:09 Dose: 150 mg Carbidopa/Levodopa (Sinemet 25/100 -) 1 each PO TID [facility] Last Admin: 10/06/18 06:10 Dose: 1 each Dextrose (D50w (Vial) -) 25 gm IVPUSH PRN PRN PRN Reason: HYPOGLYCEMIA Divalproex Sodium (Depakote -) 250 mg PO DAILY [facility] Last Admin: 10/06/18 09:07 Dose: 250 mg Divalproex Sodium (Depakote -) 125 mg PO HS [facility] Last Admin: 10/05/18 21:27 Dose: 125 mg Docusate Sodium (Colace -) 100 mg PO HS [facility] Last Admin: 10/05/18 21:24 Dose: 100 mg Donepezil HCl (Aricept -) 10 mg PO DAILY [facility] Last Admin: 10/06/18 09:06 Dose: 10 mg Doxazosin Mesylate (Cardura -) 2 mg PO BID [facility] Last Admin: 10/06/18 09:07 Dose: 2 mg Enoxaparin Sodium (Lovenox -) 30 mg SQ DAILY [facility] Last Admin: 10/06/18 09:07 Dose: 30 mg Ferrous Sulfate (Feosol -) 325 mg PO DAILY [facility] Last Admin: 10/06/18 09:07 Dose: 325 mg Furosemide (Lasix -) 80 mg PO BID@0600,1400 [facility] Last Admin: 10/06/18 06:10 Dose: 80 mg Hydralazine HCl (Apresoline -) 100 mg PO TID [facility] Last Admin: 10/06/18 06:10 Dose: 100 mg Insulin Aspart (Novolog Vial Sliding Scale -) 1 vial SQ TIDAC [facility]; Protocol Last Admin: 10/06/18 11:27 Dose: 4 units Labetalol HCl (Normodyne -) 400 mg PO TID [facility] Last Admin: 10/06/18 06:10 Dose: 400 mg Levothyroxine Sodium (Synthroid -) 25 mcg PO DAILY@0700 [facility] Last Admin: 10/06/18 06:12 Dose: 25 mcg Mirtazapine (Remeron -) 30 mg PO HS [facility] Last Admin: 10/05/18 21:25 Dose: 30 mg Nifedipine (Procardia Xl -) 60 mg PO BID [facility] Last Admin: 10/06/18 09:09 Dose: 60 mg Non-Formulary Medication (Olmesartan Medoxomil) 40 mg PO DAILY [facility] Last Admin: 10/06/18 09:08 Dose: 40 mg Ondansetron HCl (Zofran Injection) 4 mg IVPB Q6H PRN PRN Reason: NAUSEA Last Admin: 10/06/18 07:36 Dose: 4 mg Pancrelipase (Creon Dr 36,000 Units Capsule) 1 cap PO TIDCM [facility] Last Admin: 10/06/18 11:21 Dose: 1 cap Pantoprazole Sodium (Protonix -) 40 mg PO DAILY [facility] Last Admin: 10/06/18 09:09 Dose: 40 mg Polyethylene Glycol (Miralax (For Daily Use) -) 17 gm PO DAILY [facility] Last Admin: 10/06/18 09:19 Dose: Not Given Potassium Chloride (K-Dur -) 20 meq PO DAILY [facility] Last Admin: 10/06/18 09:07 Dose: 20 meq Senna (Senna -) 2 tab PO HS PRN PRN Reason: CONSTIPATION Last Admin: 09/28/18 21:09 Dose: 2 tab - Objective Vital Signs: Vital Signs Temperature 98.3 F 10/06/18 11:30 Pulse Rate 56 L 10/06/18 11:20 Respiratory Rate 16 10/06/18 11:20 Blood Pressure 123/48 L 10/06/18 11:20 O2 Sat by Pulse Oximetry (%) 100 10/06/18 08:59 Constitutional: Yes: Calm Eyes: Yes: Conjunctiva Clear HENT: Yes: Atraumatic Neck: Yes: Supple Cardiovascular: Yes: S1, S2 Respiratory: Yes: CTA Bilaterally Gastrointestinal: Yes: Soft Genitourinary: Yes: WNL Musculoskeletal: Yes: WNL Edema: Yes Edema: LLE: Trace, RLE: Trace Neurological: Yes: Oriented Psychiatric: Yes: Oriented Labs: CBC, BMP 10/06/18 05:20 10/06/18 05:20 Problem List - Problems (1) CHF (congestive heart failure) Code(s): I50.9 - HEART FAILURE, UNSPECIFIED Qualifiers: (2) CKD (chronic kidney disease) Code(s): N18.9 - CHRONIC KIDNEY DISEASE, UNSPECIFIED Assessment/Plan Current Medications Generic Name Dose Route Start Last Admin Trade Name Freq PRN Reason Stop Dose Admin Acetaminophen 650 mg 09/23/18 15:59 Tylenol - PO Q4H PRN PAIN LEVEL 1-5 Aspirin 81 mg 09/24/18 10:00 10/06/18 09:07 Ecotrin - PO 81 mg DAILY [facility] Administration Atorvastatin Calcium 20 mg 09/23/18 22:00 10/05/18 21:25 Lipitor - PO 20 mg HS [facility] Administration Bupropion HCl 150 mg 09/24/18 10:00 10/06/18 09:09 Wellbutrin Xl - PO 150 mg DAILY [facility] Administration Carbidopa/Levodopa 1 each 09/23/18 16:00 10/06/18 06:10 Sinemet 25/100 - PO 1 each TID [facility] Administration Dextrose 25 gm 09/27/18 16:28 D50w (Vial) - IVPUSH PRN PRN HYPOGLYCEMIA Divalproex Sodium 250 mg 09/24/18 10:00 10/06/18 09:07 Depakote - PO 250 mg DAILY [facility] Administration Divalproex Sodium 125 mg 09/23/18 22:00 10/05/18 21:27 Depakote - PO 125 mg HS [facility] Administration Docusate Sodium 100 mg 09/23/18 22:00 10/05/18 21:24 Colace - PO 100 mg HS [facility] Administration Donepezil HCl 10 mg 09/24/18 10:00 10/06/18 09:06 Aricept - PO 10 mg DAILY [facility] Administration Doxazosin Mesylate 2 mg 10/06/18 10:00 10/06/18 09:07 Cardura - PO 2 mg BID [facility] Administration Enoxaparin Sodium 30 mg 09/24/18 10:00 10/06/18 09:07 Lovenox - SQ 30 mg DAILY [facility] Administration Ferrous Sulfate 325 mg 09/30/18 10:00 10/06/18 09:07 Feosol - PO 325 mg DAILY [facility] Administration Furosemide 80 mg 09/29/18 06:00 10/06/18 06:10 Lasix - PO 80 mg BID@0600,1400 [facility] Administration Hydralazine HCl 100 mg 09/30/18 11:19 10/06/18 06:10 Apresoline - PO 100 mg TID [facility] Administration Insulin Aspart 1 vial 09/23/18 16:30 10/06/18 11:27 Novolog Vial Sliding Scale - SQ 4 units TIDAC [facility] Administration Protocol Labetalol HCl 400 mg 10/02/18 19:33 10/06/18 06:10 Normodyne - PO 400 mg TID [facility] Administration Levothyroxine Sodium 25 mcg 09/24/18 09:50 10/06/18 06:12 Synthroid - PO 25 mcg DAILY@0700 [facility] Administration Mirtazapine 30 mg 09/26/18 22:00 10/05/18 21:25 Remeron - PO 30 mg HS [facility] Administration Nifedipine 60 mg 09/24/18 13:37 10/06/18 09:09 Procardia Xl - PO 60 mg BID [facility] Administration Non-Formulary Medication 40 mg 09/24/18 10:00 10/06/18 09:08 Olmesartan Medoxomil PO 40 mg DAILY [facility] Administration Ondansetron HCl 4 mg 10/02/18 08:28 10/06/18 07:36 Zofran Injection IVPB 4 mg Q6H PRN Administration NAUSEA Pancrelipase 1 cap 09/23/18 17:30 10/06/18 11:21 Elaine Sweeney 36,000 Units Capsule PO 1 cap TIDCM [facility]YCE Administration Pantoprazole Sodium 40 mg 09/24/18 10:00 10/06/18 09:09 Protonix - PO 40 mg DAILY JOYCE Administration Polyethylene Glycol 17 gm 09/27/18 16:45 10/06/18 09:19 Miralax (For Daily Use) - PO Not Given DAILY [facility] Potassium Chloride 20 meq 09/24/18 10:00 10/06/18 09:07 K-Dur - PO 20 meq DAILY JOYCE Administration Senna 2 tab 09/28/18 10:28 09/28/18 21:09 Senna - PO 2 tab HS PRN Administration CONSTIPATION Selected Entries 10/06/18 10/06/18 10:00 11:20 Blood Pressure 151/47 L 123/48 L Impression 1. JASPER/CKD 2. fluid overload 3. HLD 4. shortness of breath 5. HTN 6. DM 7. proteinuria Impression - cont to monitor bp, it has been labile - monitor on cardura - monitor renal function as outpt - cont lasix - pt getting prbc today - cont arb
[2018-10-06] MEDS: DOCUSATE SODIUM 100 MG CAPSULE (FP) PO SCH (21:05)
[2018-10-06] MEDS: DIVALPROEX SODIUM 125 MG TABLET E.C. PO SCH (21:06)
[2018-10-06] MEDS: ATORVASTATIN CA 20 MG TABLET (FP) PO SCH (21:06)
[2018-10-06] MEDS: MIRTAZAPINE 15 MG TABLET (FP) PO SCH (21:07)
[2018-10-07] MEDS ORDERED: PT OWN MED DRAWER 7, Y5N ONE ×3 (05:52→21:29)
[2018-10-07] MEDS: hydrALAZINE HCL 50 MG TABLET (FP) PO SCH ×3 (05:54→21:11)
[2018-10-07] MEDS: CARBIDOPA/LEVODOPA 25/100 TABLET (FP) PO SCH ×3 (05:54→21:16)
[2018-10-07] MEDS: LABETALOL HCL 200 MG TABLET (FP) PO SCH ×3 (05:54→21:11)
[2018-10-07] MEDS: FUROSEMIDE 40 MG TABLET (FP) PO SCH ×2 (05:56→13:43)
[2018-10-07] MEDS: INSULIN SLIDING SCALE (NOVOLOG) 1 VIAL SQ SCH ×3 (06:03→18:14)
[2018-10-07] MEDS: LEVOTHYROXINE NA 25 MCG TABLET (FP) PO SCH (06:09)
[2018-10-07 06:48] LABS: HEMATOCRIT 31.8 % (32.4-45.2); HEMOGLOBIN 10.9 GM/dL (10.7-15.3); MCHC 34.4 g/dl (32.0-36.0); MEAN CELL VOLUME 81.5 fl (80-96); MEAN PLT VOLUME 7.7 fl (7.5-11.1); PLATELET COUNT 352 K/MM3 (134-434); RDW 17.6 % (11.6-15.6); WHITE BLOOD COUNT 7.5 K/mm3 (4.0-10.0)
[2018-10-07 07:17] LABS: ALBUMIN 2.7 g/dl (3.4-5.0); ALK PHOS 99 U/L (45-117); ANION GAP 3 MMOL/L (8-16); BILIRUBIN,TOTAL 0.8 mg/dL (0.2-1); BLOOD UREA NITROGEN 39.9 mg/dL (7-18); CALCIUM 8.6 mg/dL (8.5-10.1); CHLORIDE 100 mmol/L (98-107); CO2 36 mmol/L (21-32); CREATININE 1.7 mg/dL (0.55-1.3); GLUCOSE,RANDOM 206 mg/dL (74-106); POTASSIUM 4.8 mmol/L (3.5-5.1); SGOT/AST 14 U/L (15-37); SGPT/ALT < 6 U/L (13-61); SODIUM 140 mmol/L (136-145); TOT PROT 6.2 g/dl (6.4-8.2)
[2018-10-07] MEDS: LIPASE/PROTEASE/AMYLASE 36,000 UNIT CAPSULE PO SCH ×3 (09:24→18:25)
[2018-10-07] MEDS: DIVALPROEX SODIUM 250 MG TABLET E.C. PO SCH (09:25)
[2018-10-07] MEDS: DONEPEZIL HCL 10 MG TABLET (FP) PO SCH (09:25)
[2018-10-07] MEDS: POTASSIUM CHLORIDE TABS 20 MEQ TABLET.ER (FP) PO SCH (09:26)
[2018-10-07] MEDS: FERROUS SO4 325 MG TABLET (FP) PO SCH (09:26)
[2018-10-07] MEDS: POLYETHYLENE GLYCOL 3350 119 GM BTL PO SCH (09:27)
[2018-10-07] MEDS: PANTOPRAZOLE 40 MG TABLET (FP) PO SCH (09:27)
[2018-10-07] MEDS: NIFEdipine E.R 60 MG TABLET (UD) PO SCH ×2 (09:28→21:12)
[2018-10-07] MEDS: PATIENT'S OWN MEDICATION (NON-FORMULARY) (Olmesartan Medoxomil 40 MG) PO SCH (09:28)
[2018-10-07] MEDS: DOXAZOSIN MESYLATE 2 MG TABLET (FP) PO SCH ×2 (09:29→21:18)
[2018-10-07] MEDS: ASPIRIN COATED 81 MG TABLET.EC PO SCH (09:29)
--- NOTE | 2018-10-07 09:47 | PN ---
Progress Note, Physician Chief Complaint: CHF Exacerbation Anemia Hypothyroidism Anemia History of Present Illness: Previous notes and events reviewed awake and alert NAD patient has been having poor appetite and refusing food because it does not have "salt" Systolic BP >200 this morning prior to med administration complains of abdominal pain with nausea, abdominal US ordered HG improved s/p transfusion - Current Medication List Current Medications: Active Medications Acetaminophen (Tylenol -) 650 mg PO Q4H PRN PRN Reason: PAIN LEVEL 1-5 Aspirin (Ecotrin -) 81 mg PO DAILY [facility] Last Admin: 10/07/18 09:29 Dose: 81 mg Atorvastatin Calcium (Lipitor -) 20 mg PO HS [facility] Last Admin: 10/06/18 21:06 Dose: 20 mg Bupropion HCl (Wellbutrin Xl -) 150 mg PO DAILY [facility] Last Admin: 10/07/18 09:28 Dose: 150 mg Carbidopa/Levodopa (Sinemet 25/100 -) 1 each PO TID [facility] Last Admin: 10/07/18 05:54 Dose: 1 each Dextrose (D50w (Vial) -) 25 gm IVPUSH PRN PRN PRN Reason: HYPOGLYCEMIA Divalproex Sodium (Depakote -) 250 mg PO DAILY [facility] Last Admin: 10/07/18 09:25 Dose: 250 mg Divalproex Sodium (Depakote -) 125 mg PO [facility] Last Admin: 10/06/18 21:06 Dose: 125 mg Docusate Sodium (Colace -) 100 mg PO [facility] Last Admin: 10/06/18 21:05 Dose: 100 mg Donepezil HCl (Aricept -) 10 mg PO DAILY [facility] Last Admin: 10/07/18 09:25 Dose: 10 mg Doxazosin Mesylate (Cardura -) 2 mg PO BID [facility] Last Admin: 10/07/18 09:29 Dose: 2 mg Ferrous Sulfate (Feosol -) 325 mg PO DAILY [facility] Last Admin: 10/07/18 09:26 Dose: 325 mg Furosemide (Lasix -) 80 mg PO BID@0600,1400 [facility] Last Admin: 10/07/18 05:56 Dose: 80 mg Hydralazine HCl (Apresoline -) 100 mg PO TID [facility] Last Admin: 10/07/18 05:54 Dose: 100 mg Insulin Aspart (Novolog Vial Sliding Scale -) 1 vial SQ TIDAC [facility]; Protocol Last Admin: 10/07/18 06:03 Dose: Not Given Labetalol HCl (Normodyne -) 400 mg PO TID [facility] Last Admin: 10/07/18 05:54 Dose: 400 mg Levothyroxine Sodium (Synthroid -) 25 mcg PO DAILY@0700 [facility] Last Admin: 10/07/18 06:09 Dose: 25 mcg Mirtazapine (Remeron -) 30 mg PO HS [facility] Last Admin: 10/06/18 21:07 Dose: 30 mg Nifedipine (Procardia Xl -) 60 mg PO BID [facility] Last Admin: 10/07/18 09:28 Dose: 60 mg Non-Formulary Medication (Olmesartan Medoxomil) 40 mg PO DAILY [facility] Last Admin: 10/07/18 09:28 Dose: 40 mg Ondansetron HCl (Zofran Injection) 4 mg IVPB Q6H PRN PRN Reason: NAUSEA Last Admin: 10/06/18 07:36 Dose: 4 mg Pancrelipase (Creon Dr 36,000 Units Capsule) 1 cap PO TIDCM [facility] Last Admin: 10/07/18 09:24 Dose: 1 cap Pantoprazole Sodium (Protonix -) 40 mg PO DAILY [facility] Last Admin: 10/07/18 09:27 Dose: 40 mg Polyethylene Glycol (Miralax (For Daily Use) -) 17 gm PO DAILY [facility] Last Admin: 10/07/18 09:27 Dose: Not Given Potassium Chloride (K-Dur -) 20 meq PO DAILY [facility] Last Admin: 10/07/18 09:26 Dose: 20 meq Senna (Senna -) 2 tab PO HS PRN PRN Reason: CONSTIPATION Last Admin: 09/28/18 21:09 Dose: 2 tab - Objective Vital Signs: Vital Signs Temperature 98.2 F 10/07/18 06:00 Pulse Rate 60 10/07/18 06:00 Respiratory Rate 17 10/07/18 06:00 Blood Pressure 208/59 H 10/07/18 06:00 O2 Sat by Pulse Oximetry (%) 100 10/07/18 08:18 Constitutional: Yes: No Distress, Calm Eyes: Yes: Conjunctiva Clear HENT: Yes: Atraumatic Cardiovascular: Yes: Bradycardia Respiratory: Yes: Regular, Diminished, On Nasal O2 Gastrointestinal: Yes: Soft, Hypoactive Bowel Sounds, Tenderness (generalized) Genitourinary: Yes: Incontinence Musculoskeletal: Yes: Muscle Weakness Extremities: Yes: WNL Edema: No Neurological: Yes: Alert, Oriented Psychiatric: Yes: Alert, Oriented Labs: CBC, BMP 10/07/18 05:35 10/07/18 05:35 Microbiology 09/23/18 14:53 Urine - Urine Clean Catch Urine Culture - Final Normal Urogenital Charis Problem List - Problems (1) Hypothyroidism Assessment/Plan: -Levothyroxine -repeat TSH as outpatient in 6 weeks Code(s): E03.9 - HYPOTHYROIDISM, UNSPECIFIED (2) JASPER (acute kidney injury) Assessment/Plan: -renal on board -BUN/Cr 39.9/1.7 -monitor renal function -will need outpatient renal follow up Code(s): N17.9 - ACUTE KIDNEY FAILURE, UNSPECIFIED (3) Anemia Assessment/Plan: -Hg 10.9 -s/p transfusion yesterday -monitor Hg daily -Ferrous Sulfate Code(s): D64.9 - ANEMIA, UNSPECIFIED (4) Constipation Assessment/Plan: -Colace, Miralax, and Senna Code(s): K59.00 - CONSTIPATION, UNSPECIFIED (5) Diabetes Assessment/Plan: -BGM ACHS -diabetic diet -ISS -D50 IVP prn if BS <70mg/dL Code(s): E11.9 - TYPE 2 DIABETES MELLITUS WITHOUT COMPLICATIONS (6) HLD (hyperlipidemia) Assessment/Plan: -Atorvastatin Code(s): E78.5 - HYPERLIPIDEMIA, UNSPECIFIED (7) HTN (hypertension) Assessment/Plan: -Hydralazine, Labetolol, Nifedine, Cardura -low Na diet -hold if SBP <110 and/or DBP <60 -hold Labetolol dose if HR <60bpm Code(s): I10 - ESSENTIAL (PRIMARY) HYPERTENSION (8) Acute on chronic diastolic (congestive) heart failure Assessment/Plan: -Cardiology on board -daily weights -1L fluid restriction -tele monitoring -Furosemide daily Code(s): I50.33 - ACUTE ON CHRONIC DIASTOLIC (CONGESTIVE) HEART FAILURE (9) Abdominal pain Assessment/Plan: -Abdominal US ordered -Zofran PRN for nausea Code(s): R10.9 - UNSPECIFIED ABDOMINAL PAIN Qualifiers: Abdominal location: unspecified location Qualified Code(s): R10.9 - Unspecified abdominal pain Assessment/Plan see problem list SCDs
--- NOTE | 2018-10-07 10:58 | PN ---
Progress Note (short form) - Note Progress Note: Resting in NAD. No acute events overnight. Elevated BP this AM. Intake & Output 10/04/18 10/05/18 10/06/18 10/07/18 23:59 23:59 23:59 23:59 Intake Total 600 1250 1440 Output Total 200 400 Balance 400 1250 1440 -400 Weight 129 lb 0.3 oz 130 lb 6.4 oz 130 lb 3.2 oz Last Vital Signs Temp Pulse Resp BP Pulse Ox 98.2 F 60 17 208/59 H 100 10/07/18 06:00 10/07/18 06:00 10/07/18 06:00 10/07/18 06:00 10/07/18 08:18 Active Medications Acetaminophen (Tylenol -) 650 mg PO Q4H PRN PRN Reason: PAIN LEVEL 1-5 Aspirin (Ecotrin -) 81 mg PO DAILY [facility] Last Admin: 10/07/18 09:29 Dose: 81 mg Atorvastatin Calcium (Lipitor -) 20 mg PO [facility] Last Admin: 10/06/18 21:06 Dose: 20 mg Bupropion HCl (Wellbutrin Xl -) 150 mg PO DAILY [facility] Last Admin: 10/07/18 09:28 Dose: 150 mg Carbidopa/Levodopa (Sinemet 25/100 -) 1 each PO TID [facility] Last Admin: 10/07/18 05:54 Dose: 1 each Dextrose (D50w (Vial) -) 25 gm IVPUSH PRN PRN PRN Reason: HYPOGLYCEMIA Divalproex Sodium (Depakote -) 250 mg PO DAILY [facility] Last Admin: 10/07/18 09:25 Dose: 250 mg Divalproex Sodium (Depakote -) 125 mg PO HS [facility] Last Admin: 10/06/18 21:06 Dose: 125 mg Docusate Sodium (Colace -) 100 mg PO [facility] Last Admin: 10/06/18 21:05 Dose: 100 mg Donepezil HCl (Aricept -) 10 mg PO DAILY [facility] Last Admin: 10/07/18 09:25 Dose: 10 mg Doxazosin Mesylate (Cardura -) 2 mg PO BID [facility] Last Admin: 10/07/18 09:29 Dose: 2 mg Ferrous Sulfate (Feosol -) 325 mg PO DAILY [facility] Last Admin: 10/07/18 09:26 Dose: 325 mg Furosemide (Lasix -) 80 mg PO BID@0600,1400 [facility] Last Admin: 10/07/18 05:56 Dose: 80 mg Hydralazine HCl (Apresoline -) 100 mg PO TID [facility] Last Admin: 10/07/18 05:54 Dose: 100 mg Insulin Aspart (Novolog Vial Sliding Scale -) 1 vial SQ TIDAC [facility]; Protocol Last Admin: 10/07/18 06:03 Dose: Not Given Labetalol HCl (Normodyne -) 400 mg PO TID [facility] Last Admin: 10/07/18 05:54 Dose: 400 mg Levothyroxine Sodium (Synthroid -) 25 mcg PO DAILY@0700 [facility] Last Admin: 10/07/18 06:09 Dose: 25 mcg Mirtazapine (Remeron -) 30 mg PO HS [facility] Last Admin: 10/06/18 21:07 Dose: 30 mg Nifedipine (Procardia Xl -) 60 mg PO BID [facility] Last Admin: 10/07/18 09:28 Dose: 60 mg Non-Formulary Medication (Olmesartan Medoxomil) 40 mg PO DAILY [facility] Last Admin: 10/07/18 09:28 Dose: 40 mg Ondansetron HCl (Zofran Injection) 4 mg IVPB Q6H PRN PRN Reason: NAUSEA Last Admin: 10/06/18 07:36 Dose: 4 mg Pancrelipase (Creon Dr 36,000 Units Capsule) 1 cap PO TIDCM [facility] Last Admin: 10/07/18 09:24 Dose: 1 cap Pantoprazole Sodium (Protonix -) 40 mg PO DAILY [facility] Last Admin: 10/07/18 09:27 Dose: 40 mg Polyethylene Glycol (Miralax (For Daily Use) -) 17 gm PO DAILY [facility] Last Admin: 10/07/18 09:27 Dose: Not Given Potassium Chloride (K-Dur -) 20 meq PO DAILY [facility] Last Admin: 10/07/18 09:26 Dose: 20 meq Senna (Senna -) 2 tab PO HS PRN PRN Reason: CONSTIPATION Last Admin: 09/28/18 21:09 Dose: 2 tab Gen: NAD Heart: RRR Lung: decreased breath sounds at the bases Abd: soft, nontender Ext: + edema Laboratory Results - last 24 hr 07/18/19 07/18/19 07/18/19 08:25 11:07 15:37 WBC RBC Hgb Hct MCV MCH MCHC RDW Plt Count MPV Sodium Potassium Chloride Carbon Dioxide Anion Gap BUN Creatinine Est GFR (CKD-EPI)AfAm Est GFR (CKD-EPI)NonAf POC Glucometer 272 196 Random Glucose Calcium Total Bilirubin AST ALT Alkaline Phosphatase Total Protein Albumin Blood Type A POSITIVE Antibody Screen Negative Crossmatch See Detail 10/07/18 10/07/18 10/07/18 05:35 05:35 06:00 WBC 7.5 RBC 3.90 Hgb 10.9 Hct 31.8 L D MCV 81.5 MCH 28.0 MCHC 34.4 RDW 17.6 H Plt Count 352 MPV 7.7 Sodium 140 Potassium 4.8 Chloride 100 Carbon Dioxide 36 H Anion Gap 3 L BUN 39.9 H Creatinine 1.7 H Est GFR (CKD-EPI)AfAm 33.37 Est GFR (CKD-EPI)NonAf 28.79 POC Glucometer 194 Random Glucose 206 H Calcium 8.6 Total Bilirubin 0.8 AST 14 L ALT < 6 L Alkaline Phosphatase 99 Total Protein 6.2 L Albumin 2.7 L Blood Type Antibody Screen Crossmatch Problem List - Problems (1) Acute on chronic diastolic (congestive) heart failure Code(s): I50.33 - ACUTE ON CHRONIC DIASTOLIC (CONGESTIVE) HEART FAILURE (2) CKD (chronic kidney disease) Code(s): N18.9 - CHRONIC KIDNEY DISEASE, UNSPECIFIED (3) Diabetes Code(s): E11.9 - TYPE 2 DIABETES MELLITUS WITHOUT COMPLICATIONS (4) HLD (hyperlipidemia) Code(s): E78.5 - HYPERLIPIDEMIA, UNSPECIFIED (5) HTN (hypertension) Code(s): I10 - ESSENTIAL (PRIMARY) HYPERTENSION (6) Pleural effusion Code(s): J90 - PLEURAL EFFUSION, NOT ELSEWHERE CLASSIFIED A/P Acute on Chronic Diastolic Heart Failure Poorly Controlled HTN Pulmonary HTN Acute on Chronic Renal Failure DM Hyperlipidemia Parkinsons Anemia Titrate BP meds Lasix O2 to keep Spo2 >90% VTE prophylaxis D/C planning Dr Zee
--- NOTE | 2018-10-07 14:41 | PN ---
Progress Note, Physician Chief Complaint: No new complaints Sinus rhythm History of Present Illness: 78-year-old female history of diabetes, hypertension, hyperlipidemia, proteinurea and 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 - Current Medication List Current Medications: Active Medications Acetaminophen (Tylenol -) 650 mg PO Q4H PRN PRN Reason: PAIN LEVEL 1-5 Aspirin (Ecotrin -) 81 mg PO DAILY [facility] Last Admin: 10/07/18 09:29 Dose: 81 mg Atorvastatin Calcium (Lipitor -) 20 mg PO HS [facility] Last Admin: 10/06/18 21:06 Dose: 20 mg Bupropion HCl (Wellbutrin Xl -) 150 mg PO DAILY [facility] Last Admin: 10/07/18 09:28 Dose: 150 mg Carbidopa/Levodopa (Sinemet 25/100 -) 1 each PO TID [facility] Last Admin: 10/07/18 13:43 Dose: 1 each Dextrose (D50w (Vial) -) 25 gm IVPUSH PRN PRN PRN Reason: HYPOGLYCEMIA Divalproex Sodium (Depakote -) 250 mg PO DAILY [facility] Last Admin: 10/07/18 09:25 Dose: 250 mg Divalproex Sodium (Depakote -) 125 mg PO HS [facility] Last Admin: 10/06/18 21:06 Dose: 125 mg Docusate Sodium (Colace -) 100 mg PO HS [facility] Last Admin: 10/06/18 21:05 Dose: 100 mg Donepezil HCl (Aricept -) 10 mg PO DAILY [facility] Last Admin: 10/07/18 09:25 Dose: 10 mg Doxazosin Mesylate (Cardura -) 2 mg PO BID [facility] Last Admin: 10/07/18 09:29 Dose: 2 mg Ferrous Sulfate (Feosol -) 325 mg PO DAILY [facility] Last Admin: 10/07/18 09:26 Dose: 325 mg Furosemide (Lasix -) 80 mg PO BID@0600,1400 [facility] Last Admin: 10/07/18 13:43 Dose: 80 mg Hydralazine HCl (Apresoline -) 100 mg PO TID [facility] Last Admin: 10/07/18 13:43 Dose: 100 mg Insulin Aspart (Novolog Vial Sliding Scale -) 1 vial SQ TIDAC [facility]; Protocol Last Admin: 10/07/18 12:16 Dose: 2 units Labetalol HCl (Normodyne -) 400 mg PO TID [facility] Last Admin: 10/07/18 13:28 Dose: Not Given Levothyroxine Sodium (Synthroid -) 25 mcg PO DAILY@0700 [facility] Last Admin: 10/07/18 06:09 Dose: 25 mcg Mirtazapine (Remeron -) 30 mg PO HS [facility] Last Admin: 10/06/18 21:07 Dose: 30 mg Nifedipine (Procardia Xl -) 60 mg PO BID [facility] Last Admin: 10/07/18 09:28 Dose: 60 mg Non-Formulary Medication (Olmesartan Medoxomil) 40 mg PO DAILY [facility] Last Admin: 10/07/18 09:28 Dose: 40 mg Ondansetron HCl (Zofran Injection) 4 mg IVPB Q6H PRN PRN Reason: NAUSEA Last Admin: 10/06/18 07:36 Dose: 4 mg Pancrelipase (Creon Dr 36,000 Units Capsule) 1 cap PO TIDCM [facility] Last Admin: 10/07/18 12:26 Dose: 1 cap Pantoprazole Sodium (Protonix -) 40 mg PO DAILY [facility] Last Admin: 10/07/18 09:27 Dose: 40 mg Polyethylene Glycol (Miralax (For Daily Use) -) 17 gm PO DAILY [facility] Last Admin: 10/07/18 09:27 Dose: Not Given Potassium Chloride (K-Dur -) 20 meq PO DAILY [facility] Last Admin: 10/07/18 09:26 Dose: 20 meq Senna (Senna -) 2 tab PO HS PRN PRN Reason: CONSTIPATION Last Admin: 09/28/18 21:09 Dose: 2 tab - Objective Vital Signs: Vital Signs Temperature 98 F 10/07/18 10:00 Pulse Rate 59 L 10/07/18 10:00 Respiratory Rate 16 10/07/18 10:00 Blood Pressure 182/55 H 10/07/18 10:00 O2 Sat by Pulse Oximetry (%) 100 10/07/18 08:18 Constitutional: Yes: No Distress Neck: Yes: Supple Cardiovascular: Yes: Regular Rate and Rhythm Respiratory: Yes: CTA Bilaterally Edema: No Labs: CBC, BMP 10/07/18 05:35 10/07/18 05:35 Problem List - Problems (1) CHF (congestive heart failure) Code(s): I50.9 - HEART FAILURE, UNSPECIFIED Qualifiers: Assessment/Plan 78-year-old female history of diabetes, hypertension, hyperlipidemia, proteinurea and 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 1) HTN - Continue current regimen and uptitrate as needed. On nifedipine, hydralazine, and doxazosin. Noted that labetalol occasionally held. Please give her her labetalol dose and if HR 50-60 as that HR is due to her previous labetalol dose. If primary team deems that she cannot tolerate it than instead of missing a dose here and there than lowerer the labetalol dose so she still gets tid. If still high than discuss with renal if can get acei or arb (used to be on benicar)
--- NOTE | 2018-10-07 15:41 | PN ---
Progress Note, Physician History of Present Illness: Pt seen and examined at bedside. She is awake and alert. Her bp remain labile. - Current Medication List Current Medications: Active Medications Acetaminophen (Tylenol -) 650 mg PO Q4H PRN PRN Reason: PAIN LEVEL 1-5 Aspirin (Ecotrin -) 81 mg PO DAILY [facility] Last Admin: 10/07/18 09:29 Dose: 81 mg Atorvastatin Calcium (Lipitor -) 20 mg PO HS [facility] Last Admin: 10/06/18 21:06 Dose: 20 mg Bupropion HCl (Wellbutrin Xl -) 150 mg PO DAILY [facility] Last Admin: 10/07/18 09:28 Dose: 150 mg Carbidopa/Levodopa (Sinemet 25/100 -) 1 each PO TID [facility] Last Admin: 10/07/18 13:43 Dose: 1 each Dextrose (D50w (Vial) -) 25 gm IVPUSH PRN PRN PRN Reason: HYPOGLYCEMIA Divalproex Sodium (Depakote -) 250 mg PO DAILY [facility] Last Admin: 10/07/18 09:25 Dose: 250 mg Divalproex Sodium (Depakote -) [address] [facility] Last Admin: 10/06/18 21:06 Dose: 125 mg Docusate Sodium (Colace -) [address] [facility] Last Admin: 10/06/18 21:05 Dose: 100 mg Donepezil HCl (Aricept -) 10 mg PO DAILY [facility] Last Admin: 10/07/18 09:25 Dose: 10 mg Doxazosin Mesylate (Cardura -) 2 mg PO BID [facility] Last Admin: 10/07/18 09:29 Dose: 2 mg Ferrous Sulfate (Feosol -) 325 mg PO DAILY [facility] Last Admin: 10/07/18 09:26 Dose: 325 mg Furosemide (Lasix -) 80 mg PO BID@0600,1400 [facility] Last Admin: 10/07/18 13:43 Dose: 80 mg Hydralazine HCl (Apresoline -) 100 mg PO TID [facility] Last Admin: 10/07/18 13:43 Dose: 100 mg Insulin Aspart (Novolog Vial Sliding Scale -) 1 vial SQ TIDAC [facility]; Protocol Last Admin: 10/07/18 12:16 Dose: 2 units Labetalol HCl (Normodyne -) 400 mg PO TID [facility] Last Admin: 07/19/19 13:28 Dose: Not Given Levothyroxine Sodium (Synthroid -) 25 mcg PO DAILY@0700 [facility] Last Admin: 10/07/18 06:09 Dose: 25 mcg Mirtazapine (Remeron -) 30 mg PO HS [facility] Last Admin: 10/06/18 21:07 Dose: 30 mg Nifedipine (Procardia Xl -) 60 mg PO BID [facility] Last Admin: 10/07/18 09:28 Dose: 60 mg Non-Formulary Medication (Olmesartan Medoxomil) 40 mg PO DAILY [facility] Last Admin: 10/07/18 09:28 Dose: 40 mg Ondansetron HCl (Zofran Injection) 4 mg IVPB Q6H PRN PRN Reason: NAUSEA Last Admin: 10/06/18 07:36 Dose: 4 mg Pancrelipase (Creon Dr 36,000 Units Capsule) 1 cap PO TIDCM [facility] Last Admin: 10/07/18 12:26 Dose: 1 cap Pantoprazole Sodium (Protonix -) 40 mg PO DAILY [facility] Last Admin: 10/07/18 09:27 Dose: 40 mg Polyethylene Glycol (Miralax (For Daily Use) -) 17 gm PO DAILY [facility] Last Admin: 10/07/18 09:27 Dose: Not Given Potassium Chloride (K-Dur -) 20 meq PO DAILY [facility] Last Admin: 10/07/18 09:26 Dose: 20 meq Senna (Senna -) 2 tab PO HS PRN PRN Reason: CONSTIPATION Last Admin: 09/28/18 21:09 Dose: 2 tab - Objective Vital Signs: Vital Signs Temperature 98 F 10/07/18 10:00 Pulse Rate 59 L 10/07/18 10:00 Respiratory Rate 16 10/07/18 10:00 Blood Pressure 182/55 H 10/07/18 10:00 O2 Sat by Pulse Oximetry (%) 100 10/07/18 08:18 Constitutional: Yes: Calm Eyes: Yes: Conjunctiva Clear HENT: Yes: Atraumatic Neck: Yes: Supple Cardiovascular: Yes: S1, S2 Respiratory: Yes: On Nasal O2 Gastrointestinal: Yes: Normal Bowel Sounds, Soft Genitourinary: Yes: WNL Musculoskeletal: Yes: WNL Edema: Yes Edema: LLE: Trace, RLE: Trace Integumentary: Yes: WNL Neurological: Yes: Oriented Psychiatric: Yes: Oriented Labs: CBC, BMP 10/07/18 05:35 10/07/18 05:35 Problem List - Problems (1) CHF (congestive heart failure) Code(s): I50.9 - HEART FAILURE, UNSPECIFIED Qualifiers: (2) CKD (chronic kidney disease) Code(s): N18.9 - CHRONIC KIDNEY DISEASE, UNSPECIFIED Assessment/Plan Current Medications Generic Name Dose Route Start Last Admin Trade Name Freq PRN Reason Stop Dose Admin Acetaminophen 650 mg 09/23/18 15:59 Tylenol - PO Q4H PRN PAIN LEVEL 1-5 Aspirin 81 mg 09/24/18 10:00 10/07/18 09:29 Ecotrin - PO 81 mg DAILY [facility] Administration Atorvastatin Calcium 20 mg 09/23/18 22:00 10/06/18 21:06 Lipitor - PO 20 mg HS [facility] Administration Bupropion HCl 150 mg 09/24/18 10:00 10/07/18 09:28 Wellbutrin Xl - PO 150 mg DAILY [facility] Administration Carbidopa/Levodopa 1 each 09/23/18 16:00 10/07/18 13:43 Sinemet 25/100 - PO 1 each TID [facility] Administration Dextrose 25 gm 09/27/18 16:28 D50w (Vial) - IVPUSH PRN PRN HYPOGLYCEMIA Divalproex Sodium 250 mg 09/24/18 10:00 10/07/18 09:25 Depakote - PO 250 mg DAILY [facility] Administration Divalproex Sodium 125 mg 09/23/18 22:00 10/06/18 21:06 Depakote - PO 125 mg HS [facility] Administration Docusate Sodium 100 mg 09/23/18 22:00 10/06/18 21:05 Colace - PO 100 mg HS [facility] Administration Donepezil HCl 10 mg 09/24/18 10:00 10/07/18 09:25 Aricept - PO 10 mg DAILY [facility] Administration Doxazosin Mesylate 2 mg 10/06/18 10:00 10/07/18 09:29 Cardura - PO 2 mg BID [facility] Administration Ferrous Sulfate 325 mg 09/30/18 10:00 10/07/18 09:26 Feosol - PO 325 mg DAILY [facility] Administration Furosemide 80 mg 09/29/18 06:00 10/07/18 13:43 Lasix - PO 80 mg BID@0600,1400 [facility] Administration Hydralazine HCl 100 mg 09/30/18 11:19 10/07/18 13:43 Apresoline - PO 100 mg TID [facility] Administration Insulin Aspart 1 vial 09/23/18 16:30 10/07/18 12:16 Novolog Vial Sliding Scale - SQ 2 units TIDAC [facility] Administration Protocol Labetalol HCl 400 mg 10/02/18 19:33 10/07/18 13:28 Normodyne - PO Not Given TID [facility] Levothyroxine Sodium 25 mcg 09/24/18 09:50 10/07/18 06:09 Synthroid - PO 25 mcg DAILY@0700 [facility] Administration Mirtazapine 30 mg 09/26/18 22:00 10/06/18 21:07 Remeron - PO 30 mg HS [facility] Administration Nifedipine 60 mg 09/24/18 13:37 10/07/18 09:28 Procardia Xl - PO 60 mg BID [facility] Administration Non-Formulary Medication 40 mg 09/24/18 10:00 10/07/18 09:28 Olmesartan Medoxomil PO 40 mg DAILY [facility] Administration Ondansetron HCl 4 mg 10/02/18 08:28 10/06/18 07:36 Zofran Injection IVPB 4 mg Q6H PRN Administration NAUSEA Pancrelipase 1 cap 09/23/18 17:30 10/07/18 12:[address] 36,000 Units Capsule PO 1 cap TIDCM [facility] Administration Pantoprazole Sodium 40 mg 09/24/18 10:00 10/07/18 09:27 Protonix - PO 40 mg DAILY [facility] Administration Polyethylene Glycol 17 gm 09/27/18 16:45 10/07/18 09:27 Miralax (For Daily Use) - PO Not Given DAILY JOYCE Potassium Chloride 20 meq 09/24/18 10:00 10/07/18 09:26 K-Dur - PO 20 meq DAILY JOYCE Administration Senna 2 tab 09/28/18 10:28 09/28/18 21:09 Senna - PO 2 tab HS PRN Administration CONSTIPATION Laboratory Tests 10/10/15 05/05/18 07/29/18 14:25 06:30 17:15 CARMEN M-Jacob Not observed DAVID Screen Negative c-ANCA <1:20 Proteinase 3 (PR3) <3.5 SS-A/Ro Antibody <0.2 p-ANCA <1:20 Atypical p-ANCA <1:20 SS-B/La Antibody <0.2 Myeloperoxidase Ab <9.0 Double Strand DNA Ab <1 Impression 1. JASPER/CKD 2. fluid overload 3. HLD 4. shortness of breath 5. HTN 6. DM 7. proteinuria Impression - cardio input appreciated - cont current meds - unable to get renal art doppler as inpt, should be done as part of the workup after discharge - renal function stable - cont lasix - cont arb
[2018-10-07] MEDS: MIRTAZAPINE 15 MG TABLET (FP) PO SCH (21:11)
[2018-10-07] MEDS: DOCUSATE SODIUM 100 MG CAPSULE (FP) PO SCH (21:11)
[2018-10-07] MEDS: ATORVASTATIN CA 20 MG TABLET (FP) PO SCH (21:11)
[2018-10-07] MEDS: DIVALPROEX SODIUM 125 MG TABLET E.C. PO SCH (21:16)
[2018-10-08] MEDS ORDERED: PT OWN MED DRAWER 7, Y5N ONE ×2 (06:02→20:35)
[2018-10-08] MEDS: FUROSEMIDE 40 MG TABLET (FP) PO SCH ×2 (06:19→14:06)
[2018-10-08] MEDS: hydrALAZINE HCL 50 MG TABLET (FP) PO SCH ×3 (06:20→21:12)
[2018-10-08] MEDS: CARBIDOPA/LEVODOPA 25/100 TABLET (FP) PO SCH ×3 (06:21→21:15)
[2018-10-08] MEDS: LABETALOL HCL 200 MG TABLET (FP) PO SCH ×3 (06:21→21:12)
[2018-10-08] MEDS: LEVOTHYROXINE NA 25 MCG TABLET (FP) PO SCH (06:21)
[2018-10-08] MEDS: INSULIN SLIDING SCALE (NOVOLOG) 1 VIAL SQ SCH ×3 (06:22→17:14)
[2018-10-08 06:24] LABS: HEMATOCRIT 33.3 % (32.4-45.2); HEMOGLOBIN 11.1 GM/dL (10.7-15.3); MCH 27.9 pg (25.7-33.7); MCHC 33.3 g/dl (32.0-36.0); MEAN CELL VOLUME 83.7 fl (80-96); MEAN PLT VOLUME 7.8 fl (7.5-11.1); PLATELET COUNT 319 K/MM3 (134-434); RBC 3.99 M/mm3 (3.60-5.2); RDW 18.1 % (11.6-15.6); WHITE BLOOD COUNT 7.7 K/mm3 (4.0-10.0)
[2018-10-08 06:48] LABS: ALBUMIN 2.7 g/dl (3.4-5.0); BILIRUBIN,TOTAL 0.4 mg/dL (0.2-1); CALCIUM 8.6 mg/dL (8.5-10.1); CREATININE 1.7 mg/dL (0.55-1.3); POTASSIUM 4.5 mmol/L (3.5-5.1); TOT PROT 6.2 g/dl (6.4-8.2)
[2018-10-08] MEDS: LIPASE/PROTEASE/AMYLASE 36,000 UNIT CAPSULE PO SCH ×3 (09:23→17:13)
[2018-10-08] MEDS: DIVALPROEX SODIUM 250 MG TABLET E.C. PO SCH (10:12)
[2018-10-08] MEDS: DONEPEZIL HCL 10 MG TABLET (FP) PO SCH (10:12)
[2018-10-08] MEDS: NIFEdipine E.R 60 MG TABLET (UD) PO SCH ×2 (10:13→21:14)
[2018-10-08] MEDS: POTASSIUM CHLORIDE TABS 20 MEQ TABLET.ER (FP) PO SCH (10:13)
[2018-10-08] MEDS: ASPIRIN COATED 81 MG TABLET.EC PO SCH (10:13)
[2018-10-08] MEDS: FERROUS SO4 325 MG TABLET (FP) PO SCH (10:13)
[2018-10-08] MEDS: PANTOPRAZOLE 40 MG TABLET (FP) PO SCH (10:13)
[2018-10-08] MEDS: PATIENT'S OWN MEDICATION (NON-FORMULARY) (Olmesartan Medoxomil 40 MG) PO SCH (10:15)
[2018-10-08] MEDS: POLYETHYLENE GLYCOL 3350 119 GM BTL PO SCH (10:16)
[2018-10-08] MEDS: DOXAZOSIN MESYLATE 2 MG TABLET (FP) PO SCH ×2 (10:16→21:19)
--- NOTE | 2018-10-08 10:20 | PN ---
Progress Note (short form) - Note Progress Note: Renal follow up for CKD/Hypertension Coverage for Dr. Yu Pt seen and examined in tele awake and alert reports upper abd pain no N/V/D, no chest pain, sob, fever, chills or LINK BP better overnight Selected Entries 10/08/18 10/08/18 10/08/18 00:00 02:00 06:00 Blood Pressure 150/48 L 143/70 145/72 Vital Signs Temperature 98 F 10/08/18 06:00 Pulse Rate 62 10/08/18 06:00 Respiratory Rate 15 10/08/18 06:00 Blood Pressure 145/72 10/08/18 06:00 O2 Sat by Pulse Oximetry (%) 100 10/08/18 07:55 Intake & Output 10/05/18 10/06/18 10/07/18 10/08/18 23:59 23:59 23:59 23:59 Intake Total 1250 1440 300 150 Output Total 2200 200 Balance 1250 1440 -1900 -50 Weight 58.522 kg 59.148 kg 59.058 kg 58.258 kg NAD awake and alert RRR CTA mild epigastric tenderness no Le edema CBC, BMP 10/08/18 05:05 10/08/18 05:05 Laboratory Tests 10/08/18 05:05 Est GFR (CKD-EPI)NonAf 28.79 Calcium 8.6 Albumin 2.7 L Current Medications Acetaminophen (Tylenol -) 650 mg PO Q4H PRN PRN Reason: PAIN LEVEL 1-5 Aspirin (Ecotrin -) 81 mg PO DAILY [facility] Last Admin: 10/08/18 10:13 Dose: 81 mg Atorvastatin Calcium (Lipitor -) 20 mg PO HS [facility] Last Admin: 10/07/18 21:11 Dose: 20 mg Bupropion HCl (Wellbutrin Xl -) 150 mg PO DAILY [facility] Last Admin: 10/08/18 10:13 Dose: 150 mg Carbidopa/Levodopa (Sinemet 25/100 -) 1 each PO TID [facility] Last Admin: 10/08/18 06:21 Dose: 1 each Dextrose (D50w (Vial) -) 25 gm IVPUSH PRN PRN PRN Reason: HYPOGLYCEMIA Divalproex Sodium (Depakote -) 250 mg PO DAILY [facility] Last Admin: 10/08/18 10:12 Dose: 250 mg Divalproex Sodium (Depakote -) 125 mg PO [facility] Last Admin: 10/07/18 21:16 Dose: 125 mg Docusate Sodium (Colace -) 100 mg PO [facility] Last Admin: 10/07/18 21:11 Dose: 100 mg Donepezil HCl (Aricept -) 10 mg PO DAILY [facility] Last Admin: 10/08/18 10:12 Dose: 10 mg Doxazosin Mesylate (Cardura -) 2 mg PO BID [facility] Last Admin: 10/08/18 10:16 Dose: 2 mg Ferrous Sulfate (Feosol -) 325 mg PO DAILY [facility] Last Admin: 10/08/18 10:13 Dose: 325 mg Furosemide (Lasix -) 80 mg PO BID@0600,1400 [facility] Last Admin: 10/08/18 06:19 Dose: 80 mg Hydralazine HCl (Apresoline -) 100 mg PO TID [facility] Last Admin: 10/08/18 06:20 Dose: 100 mg Insulin Aspart (Novolog Vial Sliding Scale -) [facility] Protocol Last Admin: 10/08/18 06:22 Dose: 4 units Labetalol HCl (Normodyne -) 400 mg PO TID [facility] Last Admin: 10/08/18 06:21 Dose: 400 mg Levothyroxine Sodium (Synthroid -) 25 mcg PO DAILY@0700 [facility] Last Admin: 10/08/18 06:21 Dose: 25 mcg Mirtazapine (Remeron -) 30 mg PO [facility] Last Admin: 10/07/18 21:11 Dose: 30 mg Nifedipine (Procardia Xl -) 60 mg PO BID [facility] Last Admin: 10/08/18 10:13 Dose: 60 mg Non-Formulary Medication (Olmesartan Medoxomil) 40 mg PO DAILY [facility] Last Admin: 10/08/18 10:15 Dose: 40 mg Ondansetron HCl (Zofran Injection) 4 mg IVPB Q6H PRN PRN Reason: NAUSEA Last Admin: 10/06/18 07:36 Dose: 4 mg Pancrelipase (Creon Dr 36,000 Units Capsule) 1 cap PO TIDCM [facility] Last Admin: 10/08/18 09:23 Dose: Not Given Pantoprazole Sodium (Protonix -) 40 mg PO DAILY [facility] Last Admin: 10/08/18 10:13 Dose: 40 mg Polyethylene Glycol (Miralax (For Daily Use) -) 17 gm PO DAILY [facility] Last Admin: 10/08/18 10:16 Dose: 17 grams Potassium Chloride (K-Dur -) 20 meq PO DAILY [facility] Last Admin: 10/08/18 10:13 Dose: 20 meq Senna (Senna -) 2 tab PO HS PRN PRN Reason: CONSTIPATION Last Admin: 09/28/18 21:09 Dose: 2 tab Impression 1. JASPER/CKD 2. fluid overload 3. HLD 4. shortness of breath 5. HTN 6. DM 7. proteinuria Impression Renal function stable at this time no overt electrolyte or acid/base disturbance BP has been better overnight continue present meds including labetalol, nifedpine ER, cardura and olmesartan Renal artery doppler as outpatient Continue Nilay AGUERO done today for abd pain Douglas Moody DO
--- NOTE | 2018-10-08 11:21 | PN ---
Progress Note (short form) - Note Progress Note: Resting in NAD. No acute events overnight. BP is better. Intake & Output 10/05/18 10/06/18 10/07/18 10/08/18 23:59 23:59 23:59 23:59 Intake Total 1250 1440 300 150 Output Total 2200 200 Balance 1250 1440 -1900 -50 Weight 129 lb 0.3 oz 130 lb 6.4 oz 130 lb 3.2 oz 128 lb 7 oz Last Vital Signs Temp Pulse Resp BP Pulse Ox 98 F 62 15 145/72 100 10/08/18 06:00 10/08/18 06:00 10/08/18 06:00 10/08/18 06:00 10/08/18 07:55 Active Medications Acetaminophen (Tylenol -) 650 mg PO Q4H PRN PRN Reason: PAIN LEVEL 1-5 Aspirin (Ecotrin -) 81 mg PO DAILY [facility] Last Admin: 10/08/18 10:13 Dose: 81 mg Atorvastatin Calcium (Lipitor -) 20 mg PO HS [facility] Last Admin: 10/07/18 21:11 Dose: 20 mg Bupropion HCl (Wellbutrin Xl -) 150 mg PO DAILY [facility] Last Admin: 10/08/18 10:13 Dose: 150 mg Carbidopa/Levodopa (Sinemet 25/100 -) 1 each PO TID [facility] [place] Last Admin: 10/08/18 06:21 Dose: 1 each Dextrose (D50w (Vial) -) 25 gm IVPUSH PRN PRN PRN Reason: HYPOGLYCEMIA Divalproex Sodium (Depakote -) 250 mg PO DAILY [facility] [place] Last Admin: 10/08/18 10:12 Dose: 250 mg Divalproex Sodium (Depakote -) 125 mg PO HS [facility] [place] Last Admin: 10/07/18 21:16 Dose: 125 mg Docusate Sodium (Colace -) 100 mg PO HS [facility] [place] Last Admin: 10/07/18 21:11 Dose: 100 mg Donepezil HCl (Aricept -) 10 mg PO DAILY [facility] [place] Last Admin: 10/08/18 10:12 Dose: 10 mg Doxazosin Mesylate (Cardura -) 2 mg PO BID [facility] Last Admin: 10/08/18 10:16 Dose: 2 mg Ferrous Sulfate (Feosol -) 325 mg PO DAILY [facility] [place] Last Admin: 10/08/18 10:13 Dose: 325 mg Furosemide (Lasix -) 80 mg PO BID@0600,1400 [facility] Last Admin: 10/08/18 06:19 Dose: 80 mg Hydralazine HCl (Apresoline -) 100 mg PO TID [facility] [place] Last Admin: 10/08/18 06:20 Dose: 100 mg Insulin Aspart (Novolog Vial Sliding Scale -) 1 vial SQ TIDAC [facility] [place]; Protocol Last Admin: 10/08/18 06:22 Dose: 4 units Labetalol HCl (Normodyne -) 400 mg PO TID [facility] [place] Last Admin: 10/08/18 06:21 Dose: 400 mg Levothyroxine Sodium (Synthroid -) 25 mcg PO DAILY@0700 [facility] Last Admin: 10/08/18 06:21 Dose: 25 mcg Mirtazapine (Remeron -) 30 mg PO HS [facility] Last Admin: 10/07/18 21:11 Dose: 30 mg Nifedipine (Procardia Xl -) 60 mg PO BID [facility] [place] Last Admin: 10/08/18 10:13 Dose: 60 mg Non-Formulary Medication (Olmesartan Medoxomil) 40 mg PO DAILY [facility] Last Admin: 10/08/18 10:15 Dose: 40 mg Ondansetron HCl (Zofran Injection) 4 mg IVPB Q6H PRN PRN Reason: NAUSEA Last Admin: 10/06/18 07:36 Dose: 4 mg Pancrelipase (Creon Dr 36,000 Units Capsule) 1 cap PO TIDCM [facility] Last Admin: 10/08/18 09:23 Dose: Not Given Pantoprazole Sodium (Protonix -) 40 mg PO DAILY [facility] Last Admin: 10/08/18 10:13 Dose: 40 mg Polyethylene Glycol (Miralax (For Daily Use) -) 17 gm PO DAILY [facility] [place] Last Admin: 10/08/18 10:16 Dose: 17 grams Potassium Chloride (K-Dur -) 20 meq PO DAILY [facility] Last Admin: 10/08/18 10:13 Dose: 20 meq Senna (Senna -) 2 tab PO HS PRN PRN Reason: CONSTIPATION Last Admin: 09/28/18 21:09 Dose: 2 tab Gen: NAD Heart: RRR Lung: decreased breath sounds at the bases Abd: soft, nontender Ext: + edema Laboratory Results - last 24 hr 10/07/18 10/07/18 10/08/18 11:57 16:48 05:05 WBC 7.7 RBC 3.99 Hgb 11.1 Hct 33.3 MCV 83.7 MCH 27.9 MCHC 33.3 RDW 18.1 H Plt Count 319 MPV 7.8 Sodium Potassium Chloride Carbon Dioxide Anion Gap BUN Creatinine Est GFR (CKD-EPI)AfAm Est GFR (CKD-EPI)NonAf POC Glucometer 234 194 Random Glucose Calcium Total Bilirubin AST ALT Alkaline Phosphatase Total Protein Albumin 10/08/18 10/08/18 05:05 05:57 WBC RBC Hgb Hct MCV MCH MCHC RDW Plt Count MPV Sodium 140 Potassium 4.5 Chloride 99 Carbon Dioxide 38 H Anion Gap 3 L BUN 41.0 H Creatinine 1.7 H Est GFR (CKD-EPI)AfAm 33.37 Est GFR (CKD-EPI)NonAf 28.79 POC Glucometer 281 Random Glucose 296 H Calcium 8.6 Total Bilirubin 0.4 AST 10 L ALT 6 L Alkaline Phosphatase 99 Total Protein 6.2 L Albumin 2.7 L Problem List - Problems (1) Acute on chronic diastolic (congestive) heart failure Code(s): I50.33 - ACUTE ON CHRONIC DIASTOLIC (CONGESTIVE) HEART FAILURE (2) CKD (chronic kidney disease) Code(s): N18.9 - CHRONIC KIDNEY DISEASE, UNSPECIFIED (3) Diabetes Code(s): E11.9 - TYPE 2 DIABETES MELLITUS WITHOUT COMPLICATIONS (4) HLD (hyperlipidemia) Code(s): E78.5 - HYPERLIPIDEMIA, UNSPECIFIED (5) HTN (hypertension) Code(s): I10 - ESSENTIAL (PRIMARY) HYPERTENSION (6) Pleural effusion Code(s): J90 - PLEURAL EFFUSION, NOT ELSEWHERE CLASSIFIED A/P Acute on Chronic Diastolic Heart Failure Poorly Controlled HTN Pulmonary HTN Acute on Chronic Renal Failure DM Hyperlipidemia Parkinsons Anemia BP meds as ordered Lasix O2 to keep Spo2 >90% VTE prophylaxis D/C planning Dr Zee
--- NOTE | 2018-10-08 15:19 | PN ---
Progress Note, Physician Chief Complaint: AWAKE ALERT FEELING BETTER EVENTS AND NOTES REVIEWED DENIES CP, +DYSPNEA - Current Medication List Current Medications: Active Medications Acetaminophen (Tylenol -) 650 mg PO Q4H PRN PRN Reason: PAIN LEVEL 1-5 Aspirin (Ecotrin -) 81 mg PO DAILY [facility] Last Admin: 10/08/18 10:13 Dose: 81 mg Atorvastatin Calcium (Lipitor -) 20 mg PO [facility] Last Admin: 10/07/18 21:11 Dose: 20 mg Bupropion HCl (Wellbutrin Xl -) 150 mg PO DAILY [facility] Last Admin: 10/08/18 10:13 Dose: 150 mg Carbidopa/Levodopa (Sinemet 25/100 -) 1 each PO TID [facility] Last Admin: 10/08/18 14:06 Dose: 1 each Dextrose (D50w (Vial) -) 25 gm IVPUSH PRN PRN PRN Reason: HYPOGLYCEMIA Divalproex Sodium (Depakote -) 250 mg PO DAILY [facility] Last Admin: 10/08/18 10:12 Dose: 250 mg Divalproex Sodium (Depakote -) 125 mg PO [facility] Last Admin: 10/07/18 21:16 Dose: 125 mg Docusate Sodium (Colace -) 100 mg PO [facility] Last Admin: 10/07/18 21:11 Dose: 100 mg Donepezil HCl (Aricept -) 10 mg PO DAILY [facility] Last Admin: 10/08/18 10:12 Dose: 10 mg Doxazosin Mesylate (Cardura -) 2 mg PO BID [facility] Last Admin: 10/08/18 10:16 Dose: 2 mg Ferrous Sulfate (Feosol -) 325 mg PO DAILY [facility] Last Admin: 10/08/18 10:13 Dose: 325 mg Furosemide (Lasix -) 80 mg PO BID@0600,1400 [facility] Last Admin: 10/08/18 14:06 Dose: 80 mg Hydralazine HCl (Apresoline -) 100 mg PO TID [facility] Last Admin: 10/08/18 14:05 Dose: 100 mg Insulin Aspart (Novolog Vial Sliding Scale -) 1 vial SQ TIDAC [facility]; Protocol Last Admin: 10/08/18 12:06 Dose: 4 units Labetalol HCl (Normodyne -) 400 mg PO TID [facility] Last Admin: 10/08/18 14:06 Dose: 400 mg Levothyroxine Sodium (Synthroid -) 25 mcg PO DAILY@0700 [facility] Last Admin: 10/08/18 06:21 Dose: 25 mcg Mirtazapine (Remeron -) 30 mg PO HS [facility] Last Admin: 10/07/18 21:11 Dose: 30 mg Nifedipine (Procardia Xl -) 60 mg PO BID [facility] Last Admin: 10/08/18 10:13 Dose: 60 mg Non-Formulary Medication (Olmesartan Medoxomil) 40 mg PO DAILY [facility] Last Admin: 10/08/18 10:15 Dose: 40 mg Ondansetron HCl (Zofran Injection) 4 mg IVPB Q6H PRN PRN Reason: NAUSEA Last Admin: 10/06/18 07:36 Dose: 4 mg Pancrelipase (Creon Dr 36,000 Units Capsule) 1 cap PO TIDCM [facility] Last Admin: 10/08/18 12:07 Dose: 1 cap Pantoprazole Sodium (Protonix -) 40 mg PO DAILY [facility] Last Admin: 10/08/18 10:13 Dose: 40 mg Polyethylene Glycol (Miralax (For Daily Use) -) 17 gm PO DAILY [facility] Last Admin: 10/08/18 10:16 Dose: 17 grams Potassium Chloride (K-Dur -) 20 meq PO DAILY [facility] Last Admin: 10/08/18 10:13 Dose: 20 meq Senna (Senna -) 2 tab PO HS PRN PRN Reason: CONSTIPATION Last Admin: 09/28/18 21:09 Dose: 2 tab - Objective Vital Signs: Vital Signs Temperature 97.7 F 10/08/18 10:00 Pulse Rate 58 L 10/08/18 14:00 Respiratory Rate 13 10/08/18 14:00 Blood Pressure 110/46 L 10/08/18 14:00 O2 Sat by Pulse Oximetry (%) 100 10/08/18 07:55 Constitutional: Yes: Mild Distress Eyes: Yes: WNL HENT: Yes: WNL Cardiovascular: Yes: Regular Rate and Rhythm Respiratory: Yes: Diminished, On Nasal O2 Gastrointestinal: Yes: Soft Genitourinary: Yes: Incontinence Musculoskeletal: Yes: Muscle Weakness Extremities: Yes: Other Edema: Yes Integumentary: Yes: Other Wound/Incision: Yes: Dressing Dry and Intact Neurological: Yes: Pre-Existing Deficit ...Motor Strength: LLE, RLE Psychiatric: Yes: Other Labs: CBC, BMP 10/08/18 05:05 10/08/18 05:05 Problem List - Problems (1) Hypothyroidism Code(s): E03.9 - HYPOTHYROIDISM, UNSPECIFIED (2) Acute on chronic diastolic (congestive) heart failure Code(s): I50.33 - ACUTE ON CHRONIC DIASTOLIC (CONGESTIVE) HEART FAILURE (3) Anemia Code(s): D64.9 - ANEMIA, UNSPECIFIED (4) Failure to thrive Code(s): [id number] - Qualifiers: Failure to thrive age range: in adult Qualified Code(s): R62.7 - Adult failure to thrive (5) Frequent falls Code(s): R29.6 - REPEATED FALLS (6) HLD (hyperlipidemia) Code(s): E78.5 - HYPERLIPIDEMIA, UNSPECIFIED (7) HTN (hypertension) Code(s): I10 - ESSENTIAL (PRIMARY) HYPERTENSION (8) Metabolic encephalopathy Code(s): G93.41 - METABOLIC ENCEPHALOPATHY (9) Diabetes mellitus with autonomic neuropathy Code(s): E11.43 - TYPE 2 DIABETES W DIABETIC AUTONOMIC (POLY)NEUROPATHY (10) Diabetes mellitus with neuropathy Code(s): E11.40 - TYPE 2 DIABETES MELLITUS WITH DIABETIC NEUROPATHY, UNSP (11) 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
[2018-10-08] MEDS: ONDANSETRON 4 MG/2 ML VIAL IVPB PRN (17:52)
[2018-10-08] MEDS: ATORVASTATIN CA 20 MG TABLET (FP) PO SCH (21:12)
[2018-10-08] MEDS: MIRTAZAPINE 15 MG TABLET (FP) PO SCH (21:13)
[2018-10-08] MEDS: DOCUSATE SODIUM 100 MG CAPSULE (FP) PO SCH (21:14)
[2018-10-08] MEDS: DIVALPROEX SODIUM 125 MG TABLET E.C. PO SCH (21:17)
[2018-10-09] MEDS: FUROSEMIDE 40 MG TABLET (FP) PO SCH ×2 (05:33→14:00)
[2018-10-09] MEDS: hydrALAZINE HCL 50 MG TABLET (FP) PO SCH ×3 (05:33→21:45)
[2018-10-09] MEDS: LABETALOL HCL 200 MG TABLET (FP) PO SCH ×3 (05:33→21:47)
[2018-10-09] MEDS: CARBIDOPA/LEVODOPA 25/100 TABLET (FP) PO SCH ×3 (05:34→21:47)
[2018-10-09 06:39] LABS: HEMATOCRIT 36.7 % (32.4-45.2); HEMOGLOBIN 12.1 GM/dL (10.7-15.3); MCH 27.9 pg (25.7-33.7); MCHC 32.9 g/dl (32.0-36.0); MEAN CELL VOLUME 84.8 fl (80-96); MEAN PLT VOLUME 8.2 fl (7.5-11.1); PLATELET COUNT 328 K/MM3 (134-434); RBC 4.33 M/mm3 (3.60-5.2); RDW 18.3 % (11.6-15.6); WHITE BLOOD COUNT 6.9 K/mm3 (4.0-10.0)
[2018-10-09] MEDS ORDERED: PT OWN MED DRAWER 7, Y5N ONE ×5 (06:42→21:50)
[2018-10-09] MEDS: INSULIN SLIDING SCALE (NOVOLOG) 1 VIAL SQ SCH ×3 (06:43→16:37)
[2018-10-09] MEDS: LEVOTHYROXINE NA 25 MCG TABLET (FP) PO SCH (06:44)
[2018-10-09 07:10] LABS: ALBUMIN 2.9 g/dl (3.4-5.0); BILIRUBIN,TOTAL 0.7 mg/dL (0.2-1); BLOOD UREA NITROGEN 40.4 mg/dL (7-18); CALCIUM 8.8 mg/dL (8.5-10.1); CREATININE 1.6 mg/dL (0.55-1.3); MAGNESIUM 2.5 mg/dL (1.8-2.4); PHOSPHOROUS 3.3 mg/dL (2.5-4.9); POTASSIUM 4.4 mmol/L (3.5-5.1); TOT PROT 6.5 g/dl (6.4-8.2)
[2018-10-09] MEDS: ONDANSETRON 4 MG/2 ML VIAL IVPB PRN ×2 (08:35→23:51)
[2018-10-09] MEDS: POTASSIUM CHLORIDE TABS 20 MEQ TABLET.ER (FP) PO SCH (09:37)
[2018-10-09] MEDS: PANTOPRAZOLE 40 MG TABLET (FP) PO SCH (09:37)
[2018-10-09] MEDS: DONEPEZIL HCL 10 MG TABLET (FP) PO SCH (09:37)
[2018-10-09] MEDS: FERROUS SO4 325 MG TABLET (FP) PO SCH (09:37)
[2018-10-09] MEDS: NIFEdipine E.R 60 MG TABLET (UD) PO SCH ×2 (09:37→21:47)
[2018-10-09] MEDS: DIVALPROEX SODIUM 250 MG TABLET E.C. PO SCH (09:37)
[2018-10-09] MEDS: ASPIRIN COATED 81 MG TABLET.EC PO SCH (09:38)
[2018-10-09] MEDS: DOXAZOSIN MESYLATE 2 MG TABLET (FP) PO SCH ×2 (09:39→21:46)
[2018-10-09] MEDS: LIPASE/PROTEASE/AMYLASE 36,000 UNIT CAPSULE PO SCH ×3 (09:39→16:38)
[2018-10-09] MEDS: PATIENT'S OWN MEDICATION (NON-FORMULARY) (Olmesartan Medoxomil 40 MG) PO SCH (09:40)
--- NOTE | 2018-10-09 09:44 | PN ---
Progress Note, Physician Chief Complaint: AWAKE ALERT C/O NAUSE NO VOMITING DENIES CP, DOES REPORT DYSPNEA ON EXERTION - Current Medication List Current Medications: Active Medications Acetaminophen (Tylenol -) 650 mg PO Q4H PRN PRN Reason: PAIN LEVEL 1-5 Aspirin (Ecotrin -) 81 mg PO DAILY [facility] Last Admin: 10/08/18 10:13 Dose: 81 mg Atorvastatin Calcium (Lipitor -) 20 mg PO HS [facility] Last Admin: 10/08/18 21:12 Dose: 20 mg Bupropion HCl (Wellbutrin Xl -) 150 mg PO DAILY [facility] Last Admin: 10/08/18 10:13 Dose: 150 mg Carbidopa/Levodopa (Sinemet 25/100 -) 1 each PO TID [facility] Last Admin: 10/09/18 05:34 Dose: 1 each Dextrose (D50w (Vial) -) 25 gm IVPUSH PRN PRN PRN Reason: HYPOGLYCEMIA Divalproex Sodium (Depakote -) 250 mg PO DAILY [facility] Last Admin: 10/08/18 10:12 Dose: 250 mg Divalproex Sodium (Depakote -) 125 mg PO [facility] Last Admin: 10/08/18 21:17 Dose: 125 mg Docusate Sodium (Colace -) 100 mg PO [facility] Last Admin: 10/08/18 21:14 Dose: 100 mg Donepezil HCl (Aricept -) 10 mg PO DAILY [facility] Last Admin: 10/08/18 10:12 Dose: 10 mg Doxazosin Mesylate (Cardura -) 2 mg PO BID [facility] Last Admin: 10/08/18 21:19 Dose: 2 mg Ferrous Sulfate (Feosol -) 325 mg PO DAILY [facility] Last Admin: 10/08/18 10:13 Dose: 325 mg Furosemide (Lasix -) 80 mg PO BID@0600,1400 [facility] Last Admin: 10/09/18 05:33 Dose: 80 mg Hydralazine HCl (Apresoline -) 100 mg PO TID [facility] Last Admin: 10/09/18 05:33 Dose: 100 mg Insulin Aspart (Novolog Vial Sliding Scale -) 1 vial SQ TIDAC [facility]; Protocol Last Admin: 10/09/18 06:43 Dose: Not Given Labetalol HCl (Normodyne -) 400 mg PO TID [facility] Last Admin: 10/09/18 05:33 Dose: 400 mg Levothyroxine Sodium (Synthroid -) 25 mcg PO DAILY@0700 [facility] Last Admin: 10/09/18 06:44 Dose: 25 mcg Mirtazapine (Remeron -) 30 mg PO HS [facility] Last Admin: 10/08/18 21:13 Dose: 30 mg Nifedipine (Procardia Xl -) 60 mg PO BID [facility] Last Admin: 10/08/18 21:14 Dose: 60 mg Non-Formulary Medication (Olmesartan Medoxomil) 40 mg PO DAILY [facility] Last Admin: 10/08/18 10:15 Dose: 40 mg Ondansetron HCl (Zofran Injection) 4 mg IVPB Q6H PRN PRN Reason: NAUSEA Last Admin: 10/09/18 08:35 Dose: 4 mg Pancrelipase (Creon Dr 36,000 Units Capsule) 1 cap PO TIDCM [facility] Last Admin: 10/08/18 17:13 Dose: 1 cap Pantoprazole Sodium (Protonix -) 40 mg PO DAILY [facility] Last Admin: 10/08/18 10:13 Dose: 40 mg Polyethylene Glycol (Miralax (For Daily Use) -) 17 gm PO DAILY [facility] Last Admin: 10/08/18 10:16 Dose: 17 grams Potassium Chloride (K-Dur -) 20 meq PO DAILY [facility] Last Admin: 10/08/18 10:13 Dose: 20 meq Senna (Senna -) 2 tab PO HS PRN PRN Reason: CONSTIPATION Last Admin: 09/28/18 21:09 Dose: 2 tab - Objective Vital Signs: Vital Signs Temperature 97.6 F 10/09/18 07:51 Pulse Rate 60 10/09/18 07:51 Respiratory Rate 16 10/09/18 07:51 Blood Pressure 172/45 H 10/09/18 07:51 O2 Sat by Pulse Oximetry (%) 98 10/09/18 07:52 Constitutional: Yes: Mild Distress Eyes: Yes: WNL HENT: Yes: WNL Neck: Yes: WNL Cardiovascular: Yes: Regular Rate and Rhythm Respiratory: Yes: On Nasal O2, Poor Air Entry Gastrointestinal: Yes: WNL Genitourinary: Yes: Incontinence Musculoskeletal: Yes: Muscle Weakness Extremities: Yes: WNL Edema: No Peripheral Pulses WNL: Yes Integumentary: Yes: WNL Wound/Incision: Yes: Clean/Dry Neurological: Yes: Other Psychiatric: Yes: Other Labs: CBC, BMP 10/09/18 05:40 10/09/18 05:40 Problem List - Problems (1) Hypothyroidism Code(s): E03.9 - HYPOTHYROIDISM, UNSPECIFIED (2) Acute on chronic diastolic (congestive) heart failure Code(s): I50.33 - ACUTE ON CHRONIC DIASTOLIC (CONGESTIVE) HEART FAILURE (3) Anemia Code(s): D64.9 - ANEMIA, UNSPECIFIED (4) Failure to thrive Code(s): [id number] - Qualifiers: Failure to thrive age range: in adult Qualified Code(s): R62.7 - Adult failure to thrive (5) Frequent falls Code(s): R29.6 - REPEATED FALLS (6) HLD (hyperlipidemia) Code(s): E78.5 - HYPERLIPIDEMIA, UNSPECIFIED (7) HTN (hypertension) Code(s): I10 - ESSENTIAL (PRIMARY) HYPERTENSION (8) Metabolic encephalopathy Code(s): G93.41 - METABOLIC ENCEPHALOPATHY (9) Diabetes mellitus with autonomic neuropathy Code(s): E11.43 - TYPE 2 DIABETES W DIABETIC AUTONOMIC (POLY)NEUROPATHY (10) Diabetes mellitus with neuropathy Code(s): E11.40 - TYPE 2 DIABETES MELLITUS WITH DIABETIC NEUROPATHY, UNSP (11) 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
[2018-10-09] MEDS: POLYETHYLENE GLYCOL 3350 119 GM BTL PO SCH (09:52)
--- NOTE | 2018-10-09 10:02 | PN ---
Progress Note (short form) - Note Progress Note: Resting in NAD. No acute events overnight. BP is better. Intake & Output 10/06/18 10/07/18 10/08/18 10/09/18 23:59 23:59 23:59 23:59 Intake Total 1440 300 700 200 Output Total 2200 1100 800 Balance 1440 -1900 -400 -600 Weight 130 lb 6.4 oz 130 lb 3.2 oz 128 lb 7 oz 128 lb 3.2 oz Last Vital Signs Temp Pulse Resp BP Pulse Ox 97.6 F 60 16 172/45 H 98 10/09/18 07:51 10/09/18 07:51 10/09/18 07:51 10/09/18 07:51 10/09/18 07:52 Active Medications Acetaminophen (Tylenol -) 650 mg PO Q4H PRN PRN Reason: PAIN LEVEL 1-5 Aspirin (Ecotrin -) 81 mg PO DAILY [facility] Last Admin: 10/09/18 09:38 Dose: 81 mg Atorvastatin Calcium (Lipitor -) 20 mg PO HS [facility] Last Admin: 10/08/18 21:12 Dose: 20 mg Bupropion HCl (Wellbutrin Xl -) 150 mg PO DAILY [facility] Last Admin: 10/09/18 09:37 Dose: 150 mg Carbidopa/Levodopa (Sinemet 25/100 -) 1 each PO TID [facility] Last Admin: 10/09/18 05:34 Dose: 1 each Dextrose (D50w (Vial) -) 25 gm IVPUSH PRN PRN PRN Reason: HYPOGLYCEMIA Divalproex Sodium (Depakote -) 250 mg PO DAILY [facility] Last Admin: 10/09/18 09:37 Dose: 250 mg Divalproex Sodium (Depakote -) 125 mg PO HS [facility] Last Admin: 10/08/18 21:17 Dose: 125 mg Docusate Sodium (Colace -) 100 mg PO HS [facility] Last Admin: 10/08/18 21:14 Dose: 100 mg Donepezil HCl (Aricept -) 10 mg PO DAILY [facility] Last Admin: 10/09/18 09:37 Dose: 10 mg Doxazosin Mesylate (Cardura -) 2 mg PO BID [facility] Last Admin: 10/09/18 09:39 Dose: 2 mg Ferrous Sulfate (Feosol -) 325 mg PO DAILY [facility] Last Admin: 10/09/18 09:37 Dose: 325 mg Furosemide (Lasix -) 80 mg PO BID@0600,1400 [facility] Last Admin: 10/09/18 05:33 Dose: 80 mg Hydralazine HCl (Apresoline -) 100 mg PO TID [facility] Last Admin: 10/09/18 05:33 Dose: 100 mg Insulin Aspart (Novolog Vial Sliding Scale -) 1 vial SQ TIDAC [facility]; Protocol Last Admin: 10/09/18 06:43 Dose: Not Given Labetalol HCl (Normodyne -) 400 mg PO TID [facility] Last Admin: 10/09/18 05:33 Dose: 400 mg Levothyroxine Sodium (Synthroid -) 25 mcg PO DAILY@0700 [facility] Last Admin: 10/09/18 06:44 Dose: 25 mcg Mirtazapine (Remeron -) 30 mg PO HS [facility] Last Admin: 10/08/18 21:13 Dose: 30 mg Nifedipine (Procardia Xl -) 60 mg PO BID [facility] Last Admin: 10/09/18 09:37 Dose: 60 mg Non-Formulary Medication (Olmesartan Medoxomil) 40 mg PO DAILY [facility] Last Admin: 10/09/18 09:40 Dose: 40 mg Ondansetron HCl (Zofran Injection) 4 mg IVPB Q6H PRN PRN Reason: NAUSEA Last Admin: 10/09/18 08:35 Dose: 4 mg Pancrelipase (Creon Dr 36,000 Units Capsule) 1 cap PO TIDCM [facility] Last Admin: 10/09/18 09:39 Dose: 1 cap Pantoprazole Sodium (Protonix -) 40 mg PO DAILY [facility] Last Admin: 10/09/18 09:37 Dose: 40 mg Polyethylene Glycol (Miralax (For Daily Use) -) 17 gm PO DAILY [facility] Last Admin: 10/09/18 09:52 Dose: 17 grams Potassium Chloride (K-Dur -) 20 meq PO DAILY [facility] Last Admin: 10/09/18 09:37 Dose: 20 meq Senna (Senna -) 2 tab PO HS PRN PRN Reason: CONSTIPATION Last Admin: 09/28/18 21:09 Dose: 2 tab Gen: NAD Heart: RRR Lung: decreased breath sounds at the bases Abd: soft, nontender Ext: + edema Laboratory Results - last 24 hr 10/08/18 10/08/18 10/09/18 11:49 16:47 05:40 WBC RBC Hgb Hct MCV MCH MCHC RDW Plt Count MPV Sodium 143 Potassium 4.4 Chloride 100 Carbon Dioxide 38 H Anion Gap 4 L BUN 40.4 H Creatinine 1.6 H Est GFR (CKD-EPI)AfAm 35.90 Est GFR (CKD-EPI)NonAf 30.98 POC Glucometer 269 191 Random Glucose 177 H Calcium 8.8 Phosphorus 3.3 Magnesium 2.5 H Total Bilirubin 0.7 AST 13 L ALT 8 L Alkaline Phosphatase 105 Total Protein 6.5 Albumin 2.9 L 10/09/18 10/09/18 05:40 06:38 WBC 6.9 RBC 4.33 Hgb 12.1 Hct 36.7 MCV 84.8 MCH 27.9 MCHC 32.9 RDW 18.3 H Plt Count 328 MPV 8.2 Sodium Potassium Chloride Carbon Dioxide Anion Gap BUN Creatinine Est GFR (CKD-EPI)AfAm Est GFR (CKD-EPI)NonAf POC Glucometer 195 Random Glucose Calcium Phosphorus Magnesium Total Bilirubin AST ALT Alkaline Phosphatase Total Protein Albumin Problem List - Problems (1) Acute on chronic diastolic (congestive) heart failure Code(s): I50.33 - ACUTE ON CHRONIC DIASTOLIC (CONGESTIVE) HEART FAILURE (2) CKD (chronic kidney disease) Code(s): N18.9 - CHRONIC KIDNEY DISEASE, UNSPECIFIED (3) Diabetes Code(s): E11.9 - TYPE 2 DIABETES MELLITUS WITHOUT COMPLICATIONS (4) HLD (hyperlipidemia) Code(s): E78.5 - HYPERLIPIDEMIA, UNSPECIFIED (5) HTN (hypertension) Code(s): I10 - ESSENTIAL (PRIMARY) HYPERTENSION (6) Pleural effusion Code(s): J90 - PLEURAL EFFUSION, NOT ELSEWHERE CLASSIFIED A/P Acute on Chronic Diastolic Heart Failure Poorly Controlled HTN Pulmonary HTN Acute on Chronic Renal Failure DM Hyperlipidemia Parkinsons Anemia Titrate BP meds Lasix O2 to keep Spo2 >90% VTE prophylaxis D/C planning Dr Zee
--- NOTE | 2018-10-09 18:10 | PN ---
Progress Note (short form) - Note Progress Note: Brief Note: 78yo lady hx of CHF, HTN, DM, and diverticulosis c/o worsening SOB since discharge 1 week ago. Pt was admitted here for CHF and HTN for a week, discharged 1 week ago on home O2 for the first time. Pt's daughter believes she was not ready to go home and was still having trouble breathing. SOB is chronic but a lot worse over the past week, worse with exertion and lying down. Per records, echo on 08/07 revealed normal EF 55-60%. Allergies/Adverse Reactions: Allergies Allergy/AdvReac Type Severity Reaction Status Date / Time valsartan [From Ros[facility]] Allergy Mild Verified 09/23/18 11:27 Current Medications Generic Name Dose Route Start Last Admin Trade Name Freq PRN Reason Stop Dose Admin Acetaminophen 650 mg 09/23/18 15:59 Tylenol - PO Q4H PRN PAIN LEVEL 1-5 Aspirin 81 mg 09/24/18 10:00 10/09/18 09:38 Ecotrin - PO 81 mg DAILY [facility] Administration Atorvastatin Calcium 20 mg 09/23/18 22:00 10/08/18 21:12 Lipitor - PO 20 mg HS [facility] Administration Bupropion HCl 150 mg 09/24/18 10:00 10/09/18 09:37 Wellbutrin Xl - PO 150 mg DAILY [facility] Administration Carbidopa/Levodopa 1 each 09/23/18 16:00 10/09/18 14:00 Sinemet 25/100 - PO 1 each TID [facility] Administration Dextrose 25 gm 09/27/18 16:28 D50w (Vial) - IVPUSH PRN PRN HYPOGLYCEMIA Divalproex Sodium 250 mg 09/24/18 10:00 10/09/18 09:37 Depakote - PO 250 mg DAILY [facility] Administration Divalproex Sodium 125 mg 09/23/18 22:00 10/08/18 21:17 Depakote - PO 125 mg HS [facility] Administration Docusate Sodium 100 mg 09/23/18 22:00 10/08/18 21:14 Colace - PO 100 mg HS [facility] Administration Donepezil HCl 10 mg 09/24/18 10:00 10/09/18 09:37 Aricept - PO 10 mg DAILY [facility] Administration Doxazosin Mesylate 2 mg 10/06/18 10:00 10/09/18 09:39 Cardura - PO 2 mg BID [facility] Administration Ferrous Sulfate 325 mg 09/30/18 10:00 10/09/18 09:37 Feosol - PO 325 mg DAILY [facility] Administration Furosemide 80 mg 09/29/18 06:00 10/09/18 14:00 Lasix - PO 80 mg BID@0600,1400 [facility] Administration Hydralazine HCl 100 mg 09/30/18 11:19 10/09/18 14:02 Apresoline - PO 100 mg TID [facility] Administration Insulin Aspart 1 vial 09/23/18 16:30 10/09/18 16:37 Novolog Vial Sliding Scale - SQ Not Given TIDAC [facility] Protocol Labetalol HCl 400 mg 10/02/18 19:33 10/09/18 14:00 Normodyne - PO 400 mg TID [facility] Administration Levothyroxine Sodium 25 mcg 09/24/18 09:50 10/09/18 06:44 Synthroid - PO 25 mcg DAILY@0700 [facility] Administration Mirtazapine 30 mg 09/26/18 22:00 10/08/18 21:13 Remeron - PO 30 mg HS [facility] Administration Nifedipine 60 mg 09/24/18 13:37 10/09/18 09:37 Procardia Xl - PO 60 mg BID [facility] Administration Non-Formulary Medication 40 mg 09/24/18 10:00 10/09/18 09:40 Olmesartan Medoxomil PO 40 mg DAILY [facility] Administration Ondansetron HCl 4 mg 10/02/18 08:28 10/09/18 08:35 Zofran Injection IVPB 4 mg Q6H PRN Administration NAUSEA Pancrelipase 1 cap 09/23/18 17:30 10/09/18 16:38 Elaine Sweeney 36,000 Units Capsule PO 1 cap TIDCM [facility] Administration Pantoprazole Sodium 40 mg 09/24/18 10:00 10/09/18 09:37 Protonix - PO 40 mg DAILY [facility] Administration Polyethylene Glycol 17 gm 09/27/18 16:45 10/09/18 09:52 Miralax (For Daily Use) - PO 17 grams DAILY [facility] Administration Potassium Chloride 20 meq 09/24/18 10:00 10/09/18 09:37 K-Dur - PO 20 meq DAILY [facility] Administration Senna 2 tab 09/28/18 10:28 09/28/18 21:09 Senna - PO 2 tab HS PRN Administration CONSTIPATION PMH CHF: Yes (oxygen dependent) Dementia: Yes Diabetes: Yes GI Disorders: Yes (DIVERTICULOSIS, IBM) Disorders: Yes (UTERINE POLYPS,URINARY INCONTINENCE) HTN: Yes Hypercholesterolemia: Yes - Surgical History Abdominal Surgery: (abdominoplasty 15 yrs ago (tissue became necrotic)) Appendectomy: Yes Cholecystectomy: Yes - Immunization History Immunization Up to Date: Yes - Suicide/Smoking/Psychosocial Hx never smoked Last Vital Signs Temp Pulse Resp BP Pulse Ox 98 F 54 L 16 145/47 L 100 10/09/18 15:43 10/09/18 15:43 10/09/18 15:43 10/09/18 15:43 10/09/18 10:00 ROS: 14 point elicited in detail 10/08 and negative or as per HPI General: NAD HEENT: Supple Cor: RSR, No murmurs, No gallops Lungs: Clear to P&A Abd: Soft, Normal bowel sounds, No organomegaly Ext:No significant edema Psych: Alert. Conversant 10/09/18 05:40 10/09/18 05:40 A/P 78yo F hx of CHF, HTN, and DM presenting with worsening SOB and pitting edema since previous discharge now improving. CHF Microcytic anemia. s/p 2 units pRBCs 10/06. anemia of chronic disease +/- gi loses transfuse for symptomatic anemia or Hgb < 7 Prior studies: Iron: 23, TIBC 260, TSAT 8.8, Ferritin 65. On FeSO4 325 mg po daily. Repeat Iron studies/B12/folate. May benefit form increased dose or IV Iron replacement. Consider outpatient colonoscopy/EGD, pt mentioned was done several years ago.
[2018-10-09] MEDS: DOCUSATE SODIUM 100 MG CAPSULE (FP) PO SCH (21:46)
[2018-10-09] MEDS: DIVALPROEX SODIUM 125 MG TABLET E.C. PO SCH (21:47)
[2018-10-09] MEDS: ATORVASTATIN CA 20 MG TABLET (FP) PO SCH (21:47)
[2018-10-09] MEDS: MIRTAZAPINE 15 MG TABLET (FP) PO SCH (21:50)
[2018-10-10] MEDS ORDERED: PT OWN MED DRAWER 7, Y5N ONE ×2 (05:39→16:56)
[2018-10-10] MEDS: FUROSEMIDE 40 MG TABLET (FP) PO SCH ×2 (05:43→14:54)
[2018-10-10] MEDS: hydrALAZINE HCL 50 MG TABLET (FP) PO SCH ×3 (05:43→21:34)
[2018-10-10] MEDS: CARBIDOPA/LEVODOPA 25/100 TABLET (FP) PO SCH ×3 (05:43→18:00)
[2018-10-10] MEDS: LABETALOL HCL 200 MG TABLET (FP) PO SCH ×3 (05:43→21:33)
[2018-10-10] MEDS: INSULIN SLIDING SCALE (NOVOLOG) 1 VIAL SQ SCH ×3 (06:08→16:51)
[2018-10-10] MEDS: LEVOTHYROXINE NA 25 MCG TABLET (FP) PO SCH (06:08)
--- NOTE | 2018-10-10 08:20 | PN ---
Progress Note, Physician - Current Medication List Current Medications: Active Medications Acetaminophen (Tylenol -) 650 mg PO Q4H PRN PRN Reason: PAIN LEVEL 1-5 Aspirin (Ecotrin -) 81 mg PO DAILY [facility] Last Admin: 10/09/18 09:38 Dose: 81 mg Atorvastatin Calcium (Lipitor -) 20 mg PO HS [facility] Last Admin: 10/09/18 21:47 Dose: 20 mg Bupropion HCl (Wellbutrin Xl -) 150 mg PO DAILY [facility] Last Admin: 10/09/18 09:37 Dose: 150 mg Carbidopa/Levodopa (Sinemet 25/100 -) 1 each PO TID [facility] Last Admin: 10/10/18 05:43 Dose: 1 each Dextrose (D50w (Vial) -) 25 gm IVPUSH PRN PRN PRN Reason: HYPOGLYCEMIA Divalproex Sodium (Depakote -) 250 mg PO DAILY [facility] Last Admin: 10/09/18 09:37 Dose: 250 mg Divalproex Sodium (Depakote -) 125 mg PO [facility] Last Admin: 10/09/18 21:47 Dose: 125 mg Docusate Sodium (Colace -) 100 mg PO [facility] Last Admin: 10/09/18 21:46 Dose: 100 mg Donepezil HCl (Aricept -) 10 mg PO DAILY [facility] Last Admin: 10/09/18 09:37 Dose: 10 mg Doxazosin Mesylate (Cardura -) 2 mg PO BID [facility] Last Admin: 10/09/18 21:46 Dose: 2 mg Ferrous Sulfate (Feosol -) 325 mg PO DAILY [facility] Last Admin: 10/09/18 09:37 Dose: 325 mg Furosemide (Lasix -) 80 mg PO BID@0600,1400 [facility] Last Admin: 10/10/18 05:43 Dose: 80 mg Hydralazine HCl (Apresoline -) 100 mg PO TID [facility] Last Admin: 10/10/18 05:43 Dose: 100 mg Insulin Aspart (Novolog Vial Sliding Scale -) 1 vial SQ TIDAC [facility]; Protocol Last Admin: 10/10/18 06:08 Dose: 2 units Labetalol HCl (Normodyne -) 400 mg PO TID [facility] Last Admin: 10/10/18 05:43 Dose: 400 mg Levothyroxine Sodium (Synthroid -) 25 mcg PO DAILY@0700 [facility] Last Admin: 10/10/18 06:08 Dose: 25 mcg Mirtazapine (Remeron -) 30 mg PO HS [facility] Last Admin: 10/09/18 21:50 Dose: 30 mg Nifedipine (Procardia Xl -) 60 mg PO BID [facility] Last Admin: 10/09/18 21:47 Dose: 60 mg Non-Formulary Medication (Olmesartan Medoxomil) 40 mg PO DAILY [facility] Last Admin: 10/09/18 09:40 Dose: 40 mg Ondansetron HCl (Zofran Injection) 4 mg IVPB Q6H PRN PRN Reason: NAUSEA Last Admin: 10/09/18 23:51 Dose: 4 mg Pancrelipase (Creon Dr 36,000 Units Capsule) 1 cap PO TIDCM [facility] Last Admin: 10/09/18 16:38 Dose: 1 cap Pantoprazole Sodium (Protonix -) 40 mg PO DAILY [facility] Last Admin: 10/09/18 09:37 Dose: 40 mg Polyethylene Glycol (Miralax (For Daily Use) -) 17 gm PO DAILY [facility] Last Admin: 10/09/18 09:52 Dose: 17 grams Potassium Chloride (K-Dur -) 20 meq PO DAILY [facility] Last Admin: 10/09/18 09:37 Dose: 20 meq Senna (Senna -) 2 tab PO HS PRN PRN Reason: CONSTIPATION Last Admin: 09/28/18 21:09 Dose: 2 tab - Objective Vital Signs: Vital Signs Temperature 98.2 F 10/10/18 04:00 Pulse Rate 61 10/10/18 04:00 Respiratory Rate 18 10/10/18 04:00 Blood Pressure 126/39 L 10/10/18 04:00 O2 Sat by Pulse Oximetry (%) 100 10/09/18 22:00 Cardiovascular: Yes: S1, S2 Respiratory: Yes: Regular, CTA Bilaterally, On Nasal O2 Gastrointestinal: Yes: Normal Bowel Sounds, Soft Labs: CBC, BMP 10/09/18 05:40 10/09/18 05:40 Assessment/Plan - Problems (1) Hypothyroidism Assessment/Plan: -Levothyroxine -repeat TSH as outpatient in 6 weeks Code(s): E03.9 - HYPOTHYROIDISM, UNSPECIFIED (2) JASPER (acute kidney injury) Assessment/Plan: -renal on board -Stable -monitor renal function -will need outpatient renal follow up Code(s): N17.9 - ACUTE KIDNEY FAILURE, UNSPECIFIED (3) Anemia Assessment/Plan: -Hg improved post transfusion -Ferrous Sulfate Code(s): D64.9 - ANEMIA, UNSPECIFIED (4) Constipation Assessment/Plan: -Colace, Miralax, and Senna Code(s): K59.00 - CONSTIPATION, UNSPECIFIED (5) Diabetes Assessment/Plan: -BGM ACHS -diabetic diet -ISS -D50 IVP prn if BS <70mg/dL Code(s): E11.9 - TYPE 2 DIABETES MELLITUS WITHOUT COMPLICATIONS (6) HLD (hyperlipidemia) Assessment/Plan: -Atorvastatin Code(s): E78.5 - HYPERLIPIDEMIA, UNSPECIFIED (7) HTN (hypertension) Assessment/Plan: -Hydralazine, Labetolol, Nifedine -low Na diet -cardura 2 mg bid -hold if SBP <110 and/or DBP <60, hold Labetolol for HR <60bpm -hold Labetolol dose if HR <60bpm Code(s): I10 - ESSENTIAL (PRIMARY) HYPERTENSION (8) Acute on chronic diastolic (congestive) heart failure Assessment/Plan: -Cardiology on board -daily weights -1L fluid restriction -tele monitoring -Furosemide daily Code(s): I50.33 - ACUTE ON CHRONIC DIASTOLIC (CONGESTIVE) HEART FAILURE dc planning--snf
[2018-10-10] MEDS: LIPASE/PROTEASE/AMYLASE 36,000 UNIT CAPSULE PO SCH ×3 (09:00→18:00)
[2018-10-10] MEDS: DONEPEZIL HCL 10 MG TABLET (FP) PO SCH (09:52)
[2018-10-10] MEDS: DOXAZOSIN MESYLATE 2 MG TABLET (FP) PO SCH ×2 (09:53→21:31)
[2018-10-10] MEDS: DIVALPROEX SODIUM 250 MG TABLET E.C. PO SCH (09:53)
[2018-10-10] MEDS: POTASSIUM CHLORIDE TABS 20 MEQ TABLET.ER (FP) PO SCH (09:54)
[2018-10-10] MEDS: FERROUS SO4 325 MG TABLET (FP) PO SCH (09:54)
[2018-10-10] MEDS: ASPIRIN COATED 81 MG TABLET.EC PO SCH (09:54)
[2018-10-10] MEDS: NIFEdipine E.R 60 MG TABLET (UD) PO SCH ×2 (09:56→21:33)
[2018-10-10] MEDS: PANTOPRAZOLE 40 MG TABLET (FP) PO SCH (09:56)
[2018-10-10] MEDS: PATIENT'S OWN MEDICATION (NON-FORMULARY) (Olmesartan Medoxomil 40 MG) PO SCH (09:59)
[2018-10-10] MEDS: POLYETHYLENE GLYCOL 3350 119 GM BTL PO SCH (10:00)
--- NOTE | 2018-10-10 11:12 | PN ---
Progress Note (short form) - Note Progress Note: Resting in NAD. No acute events overnight. BP improving. Intake & Output 10/07/18 10/08/18 10/09/18 10/10/18 23:59 23:59 23:59 23:59 Intake Total 300 700 500 50 Output Total 2200 1100 1400 200 Balance -1900 -400 -900 -150 Weight 130 lb 3.2 oz 128 lb 7 oz 128 lb 3.2 oz 128 lb 9 oz Last Vital Signs Temp Pulse Resp BP Pulse Ox 98.8 F 58 L 14 129/41 L 93 L 10/10/18 08:00 10/10/18 08:00 10/10/18 09:00 10/10/18 08:00 10/10/18 10:00 Active Medications Acetaminophen (Tylenol -) 650 mg PO Q4H PRN PRN Reason: PAIN LEVEL 1-5 Aspirin (Ecotrin -) 81 mg PO DAILY [facility] Last Admin: 10/10/18 09:54 Dose: 81 mg Atorvastatin Calcium (Lipitor -) 20 mg PO HS [facility] Last Admin: 10/09/18 21:47 Dose: 20 mg Bupropion HCl (Wellbutrin Xl -) 150 mg PO DAILY [facility] Last Admin: 10/10/18 09:56 Dose: 150 mg Carbidopa/Levodopa (Sinemet 25/100 -) 1 each PO TID [facility] Last Admin: 10/10/18 05:43 Dose: 1 each Dextrose (D50w (Vial) -) 25 gm IVPUSH PRN PRN PRN Reason: HYPOGLYCEMIA Divalproex Sodium (Depakote -) 250 mg PO DAILY [facility] Last Admin: 10/10/18 09:53 Dose: 250 mg Divalproex Sodium (Depakote -) 125 mg PO HS [facility] Last Admin: 10/09/18 21:47 Dose: 125 mg Docusate Sodium (Colace -) 100 mg PO HS [facility] Last Admin: 10/09/18 21:46 Dose: 100 mg Donepezil HCl (Aricept -) 10 mg PO DAILY [facility] Last Admin: 10/10/18 09:52 Dose: 10 mg Doxazosin Mesylate (Cardura -) 2 mg PO BID [facility] Last Admin: 10/10/18 09:53 Dose: 2 mg Ferrous Sulfate (Feosol -) 325 mg PO DAILY [facility] Last Admin: 10/10/18 09:54 Dose: 325 mg Furosemide (Lasix -) 80 mg PO BID@0600,1400 [facility] Last Admin: 10/10/18 05:43 Dose: 80 mg Hydralazine HCl (Apresoline -) 100 mg PO TID [facility] Last Admin: 10/10/18 05:43 Dose: 100 mg Insulin Aspart (Novolog Vial Sliding Scale -) 1 vial SQ TIDAC [facility]; Protocol Last Admin: 10/10/18 06:08 Dose: 2 units Labetalol HCl (Normodyne -) 400 mg PO TID [facility] Last Admin: 10/10/18 05:43 Dose: 400 mg Levothyroxine Sodium (Synthroid -) 25 mcg PO DAILY@0700 [facility] Last Admin: 10/10/18 06:08 Dose: 25 mcg Mirtazapine (Remeron -) 30 mg PO HS [facility] Last Admin: 10/09/18 21:50 Dose: 30 mg Nifedipine (Procardia Xl -) 60 mg PO BID [facility] Last Admin: 10/10/18 09:56 Dose: 60 mg Non-Formulary Medication (Olmesartan Medoxomil) 40 mg PO DAILY [facility] Last Admin: 10/10/18 09:59 Dose: 40 mg Ondansetron HCl (Zofran Injection) 4 mg IVPB Q6H PRN PRN Reason: NAUSEA Last Admin: 10/09/18 23:51 Dose: 4 mg Pancrelipase (Creon Dr 36,000 Units Capsule) 1 cap PO TIDCM [facility] Last Admin: 10/10/18 09:00 Dose: 1 cap Pantoprazole Sodium (Protonix -) 40 mg PO DAILY [facility] Last Admin: 10/10/18 09:56 Dose: 40 mg Polyethylene Glycol (Miralax (For Daily Use) -) 17 gm PO DAILY [facility] Last Admin: 10/10/18 10:00 Dose: Not Given Potassium Chloride (K-Dur -) 20 meq PO DAILY [facility] Last Admin: 10/10/18 09:54 Dose: 20 meq Senna (Senna -) 2 tab PO HS PRN PRN Reason: CONSTIPATION Last Admin: 09/28/18 21:09 Dose: 2 tab Gen: NAD Heart: RRR Lung: decreased breath sounds at the bases Abd: soft, nontender Ext: less edema Laboratory Results - last 24 hr 10/06/18 10/09/18 10/09/18 08:25 11:56 16:36 POC Glucometer 289 149 Blood Type A POSITIVE Antibody Screen Negative Crossmatch See Detail 10/10/18 05:17 POC Glucometer 225 Blood Type Antibody Screen Crossmatch Problem List - Problems (1) Acute on chronic diastolic (congestive) heart failure Code(s): I50.33 - ACUTE ON CHRONIC DIASTOLIC (CONGESTIVE) HEART FAILURE (2) CKD (chronic kidney disease) Code(s): N18.9 - CHRONIC KIDNEY DISEASE, UNSPECIFIED (3) Diabetes Code(s): E11.9 - TYPE 2 DIABETES MELLITUS WITHOUT COMPLICATIONS (4) HLD (hyperlipidemia) Code(s): E78.5 - HYPERLIPIDEMIA, UNSPECIFIED (5) HTN (hypertension) Code(s): I10 - ESSENTIAL (PRIMARY) HYPERTENSION (6) Pleural effusion Code(s): J90 - PLEURAL EFFUSION, NOT ELSEWHERE CLASSIFIED A/P Acute on Chronic Diastolic Heart Failure Poorly Controlled HTN Pulmonary HTN Acute on Chronic Renal Failure DM Hyperlipidemia Parkinsons Anemia BP meds as ordered Lasix O2 to keep Spo2 >90% VTE prophylaxis D/C planning Dr Zee
--- NOTE | 2018-10-10 12:38 | PN ---
Progress Note (short form) - Note Progress Note: NEUROLOGY PROGRESS: Events reviewed and discussed with daughter Linda and Audrey PastranaFEMI. Discharge 10/02 postponed due to daughter witnessing period of "unresponsiveness " with oxygen desaturation. EKG and CT of head ordered at the time and reviewed. Noted sinus bradycardia in 50s. CT of head (reviewed): Moderate diffuse cerebral atrophy with chronic periventricular ischemic changes. No acute pathology. BP's quite labile, however today improving to systolic 110s-120s. Per nursing staff, pt pending SNF due to "deconditioning," requiring 2 assist to ambulate at this time. STEVENSON: supine supine and sitting without orthostasis. P 50s. NEURO: Awake, alert, responsive. Ox "[facility]" No month. 2019. No president. + glabella, palmomentals. CNII-CNXII: Normal, including gag. Motor: Decreased SELENE's B/L. Min Cogwheeling. Gait: Frozen, flexed at knees, shuffling. 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 Orthostatic BP's Pt may require SNF level of care for therapy and rehabilitation Thank you very much, Panchito Helton MD
--- NOTE | 2018-10-10 13:04 | PN ---
Progress Note, Physician History of Present Illness: Pt seen and examined at bedside. Her blood pressure is better controlled. She denies shortness of breath. - Current Medication List Current Medications: Active Medications Acetaminophen (Tylenol -) 650 mg PO Q4H PRN PRN Reason: PAIN LEVEL 1-5 Aspirin (Ecotrin -) 81 mg PO DAILY [facility] Last Admin: 10/10/18 09:54 Dose: 81 mg Atorvastatin Calcium (Lipitor -) 20 mg PO HS [facility] Last Admin: 10/09/18 21:47 Dose: 20 mg Bupropion HCl (Wellbutrin Xl -) 150 mg PO DAILY [facility] Last Admin: 10/10/18 09:56 Dose: 150 mg Carbidopa/Levodopa (Sinemet 25/100 -) 1.5 each PO TID@0700,1200,1700 [facility] Last Admin: 10/10/18 12:52 Dose: 1.5 each Dextrose (D50w (Vial) -) 25 gm IVPUSH PRN PRN PRN Reason: HYPOGLYCEMIA Divalproex Sodium (Depakote -) 250 mg PO DAILY [facility] Last Admin: 10/10/18 09:53 Dose: 250 mg Divalproex Sodium (Depakote -) 125 mg PO HS [facility] Last Admin: 10/09/18 21:47 Dose: 125 mg Docusate Sodium (Colace -) 100 mg PO HS [facility] Last Admin: 10/09/18 21:46 Dose: 100 mg Donepezil HCl (Aricept -) 10 mg PO DAILY [facility] Last Admin: 10/10/18 09:52 Dose: 10 mg Doxazosin Mesylate (Cardura -) 2 mg PO BID [facility] Last Admin: 10/10/18 09:53 Dose: 2 mg Ferrous Sulfate (Feosol -) 325 mg PO DAILY [facility] Last Admin: 10/10/18 09:54 Dose: 325 mg Furosemide (Lasix -) 80 mg PO BID@0600,1400 [facility] Last Admin: 10/10/18 05:43 Dose: 80 mg Hydralazine HCl (Apresoline -) 100 mg PO TID [facility] Last Admin: 10/10/18 05:43 Dose: 100 mg Insulin Aspart (Novolog Vial Sliding Scale -) 1 vial SQ TIDAC [facility]; Protocol Last Admin: 10/10/18 12:19 Dose: 2 units Labetalol HCl (Normodyne -) 400 mg PO TID [facility] Last Admin: 10/10/18 05:43 Dose: 400 mg Levothyroxine Sodium (Synthroid -) 25 mcg PO DAILY@0700 [facility] Last Admin: 10/10/18 06:08 Dose: 25 mcg Mirtazapine (Remeron -) 30 mg PO HS [facility] Last Admin: 10/09/18 21:50 Dose: 30 mg Nifedipine (Procardia Xl -) 60 mg PO BID [facility] Last Admin: 10/10/18 09:56 Dose: 60 mg Non-Formulary Medication (Olmesartan Medoxomil) 40 mg PO DAILY [facility] Last Admin: 10/10/18 09:59 Dose: 40 mg Ondansetron HCl (Zofran Injection) 4 mg IVPB Q6H PRN PRN Reason: NAUSEA Last Admin: 10/09/18 23:51 Dose: 4 mg Pancrelipase (Creon Dr 36,000 Units Capsule) 1 cap PO TIDCM [facility] Last Admin: 10/10/18 12:49 Dose: 1 cap Pantoprazole Sodium (Protonix -) 40 mg PO DAILY [facility] Last Admin: 10/10/18 09:56 Dose: 40 mg Polyethylene Glycol (Miralax (For Daily Use) -) 17 gm PO DAILY [facility] Last Admin: 10/10/18 10:00 Dose: Not Given Potassium Chloride (K-Dur -) 20 meq PO DAILY [facility] Last Admin: 10/10/18 09:54 Dose: 20 meq Senna (Senna -) 2 tab PO HS PRN PRN Reason: CONSTIPATION Last Admin: 09/28/18 21:09 Dose: 2 tab - Objective Vital Signs: Vital Signs Temperature 98.1 F 10/10/18 12:00 Pulse Rate 56 L 10/10/18 12:00 Respiratory Rate 15 10/10/18 12:00 Blood Pressure 115/40 L 10/10/18 12:00 O2 Sat by Pulse Oximetry (%) 93 L 10/10/18 10:00 Constitutional: Yes: Calm Eyes: Yes: Conjunctiva Clear HENT: Yes: Atraumatic Neck: Yes: Supple Cardiovascular: Yes: S1, S2 Respiratory: Yes: CTA Bilaterally Gastrointestinal: Yes: Normal Bowel Sounds, Soft Genitourinary: Yes: WNL Musculoskeletal: Yes: WNL Edema: Yes Edema: LLE: Trace, RLE: Trace Neurological: Yes: Oriented Psychiatric: Yes: Oriented Labs: CBC, BMP 10/09/18 05:40 10/09/18 05:40 Problem List - Problems (1) CHF (congestive heart failure) Code(s): I50.9 - HEART FAILURE, UNSPECIFIED Qualifiers: (2) CKD (chronic kidney disease) Code(s): N18.9 - CHRONIC KIDNEY DISEASE, UNSPECIFIED Assessment/Plan Current Medications Generic Name Dose Route Start Last Admin Trade Name Freq PRN Reason Stop Dose Admin Acetaminophen 650 mg 09/23/18 15:59 Tylenol - PO Q4H PRN PAIN LEVEL 1-5 Aspirin 81 mg 09/24/18 10:00 10/10/18 09:54 Ecotrin - PO 81 mg DAILY [facility] Administration Atorvastatin Calcium 20 mg 09/23/18 22:00 10/09/18 21:47 Lipitor - PO 20 mg HS [facility]YCE Administration Bupropion HCl 150 mg 09/24/18 10:00 10/10/18 09:56 Wellbutrin Xl - PO 150 mg DAILY [facility] Administration Carbidopa/Levodopa 1.5 each 10/10/18 13:00 10/10/18 12:52 Sinemet 25/100 - PO 1.5 each TID@0700,1200,1700 [facility] Administration Dextrose 25 gm 09/27/18 16:28 D50w (Vial) - IVPUSH PRN PRN HYPOGLYCEMIA Divalproex Sodium 250 mg 09/24/18 10:00 10/10/18 09:53 Depakote - PO 250 mg DAILY [facility] Administration Divalproex Sodium 125 mg 09/23/18 22:00 10/09/18 21:47 Depakote - PO 125 mg HS [facility] Administration Docusate Sodium 100 mg 09/23/18 22:00 10/09/18 21:46 Colace - PO 100 mg HS [facility] Administration Donepezil HCl 10 mg 09/24/18 10:00 10/10/18 09:52 Aricept - PO 10 mg DAILY [facility] Administration Doxazosin Mesylate 2 mg 10/06/18 10:00 10/10/18 09:53 Cardura - PO 2 mg BID [facility] Administration Ferrous Sulfate 325 mg 09/30/18 10:00 10/10/18 09:54 Feosol - PO 325 mg DAILY [facility] Administration Furosemide 80 mg 09/29/18 06:00 10/10/18 05:43 Lasix - PO 80 mg BID@0600,1400 [facility] Administration Hydralazine HCl 100 mg 09/30/18 11:19 10/10/18 05:43 Apresoline - PO 100 mg TID [facility] Administration Insulin Aspart 1 vial 09/23/18 16:30 10/10/18 12:19 Novolog Vial Sliding Scale - SQ 2 units TIDAC JOY[facility] Administration Protocol Labetalol HCl 400 mg 10/02/18 19:33 10/10/18 05:43 Normodyne - PO 400 mg TID [facility] Administration Levothyroxine Sodium 25 mcg 09/24/18 09:50 10/10/18 06:08 Synthroid - PO 25 mcg DAILY@0700 [facility] Administration Mirtazapine 30 mg 09/26/18 22:00 10/09/18 21:50 Remeron - PO 30 mg HS [facility] Administration Nifedipine 60 mg 09/24/18 13:37 10/10/18 09:56 Procardia Xl - PO 60 mg BID [facility] Administration Non-Formulary Medication 40 mg 09/24/18 10:00 10/10/18 09:59 Olmesartan Medoxomil PO 40 mg DAILY [facility] Administration Ondansetron HCl 4 mg 10/02/18 08:28 10/09/18 23:51 Zofran Injection IVPB 4 mg Q6H PRN Administration NAUSEA Pancrelipase 1 cap 09/23/18 17:30 10/10/18 12:[address] 36,000 Units Capsule PO 1 cap TIDCM [facility] Administration Pantoprazole Sodium 40 mg 09/24/18 10:00 10/10/18 09:56 Protonix - PO 40 mg DAILY [facility] Administration Polyethylene Glycol 17 gm 09/27/18 16:45 10/10/18 10:00 Miralax (For Daily Use) - PO Not Given DAILY [facility] Potassium Chloride 20 meq 09/24/18 10:00 10/10/18 09:54 K-Dur - PO 20 meq DAILY [facility] Administration Senna 2 tab 09/28/18 10:28 09/28/18 21:09 Senna - PO 2 tab HS PRN Administration CONSTIPATION Impression 1. JASPER/CKD 2. fluid overload 3. HLD 4. shortness of breath 5. HTN 6. DM 7. proteinuria Impression - bp is improved - cont current meds - avoid hypotension - mental status at baseline - will need outpt follow up - cont lasix - cont arb
[2018-10-10] MEDS: DIVALPROEX SODIUM 125 MG TABLET E.C. PO SCH (21:31)
[2018-10-10] MEDS: ATORVASTATIN CA 20 MG TABLET (FP) PO SCH (21:32)
[2018-10-10] MEDS: DOCUSATE SODIUM 100 MG CAPSULE (FP) PO SCH (21:32)
[2018-10-10] MEDS: MIRTAZAPINE 15 MG TABLET (FP) PO SCH (21:32)
[2018-10-11] MEDS: FUROSEMIDE 40 MG TABLET (FP) PO SCH ×2 (06:16→13:06)
[2018-10-11] MEDS: LEVOTHYROXINE NA 25 MCG TABLET (FP) PO SCH (06:17)
[2018-10-11] MEDS: LABETALOL HCL 200 MG TABLET (FP) PO SCH ×2 (06:17→13:08)
[2018-10-11] MEDS: hydrALAZINE HCL 50 MG TABLET (FP) PO SCH ×2 (06:17→13:05)
[2018-10-11] MEDS: CARBIDOPA/LEVODOPA 25/100 TABLET (FP) PO SCH ×2 (06:18→13:05)
--- NOTE | 2018-10-11 07:03 | DS ---
Physical Examination Vital Signs: Vital Signs Temperature 98.2 F 10/11/18 02:00 Pulse Rate 61 10/11/18 02:00 Respiratory Rate 14 10/11/18 02:00 Blood Pressure 130/45 L 10/11/18 02:00 O2 Sat by Pulse Oximetry (%) 95 10/10/18 22:00 Cardiovascular: Yes: Regular Rate and Rhythm Respiratory: Yes: Regular, CTA Bilaterally Gastrointestinal: Yes: Normal Bowel Sounds, Soft Labs: CBC, BMP 10/09/18 05:40 10/09/18 05:40 Discharge Summary Reason For Visit: CHF Current Active Problems CHF (congestive heart failure) (Acute) CHF exacerbation (Acute) Hypothyroidism (Acute) Hospital Course: - Problems (1) Hypothyroidism Assessment/Plan: -Levothyroxine -repeat TSH as outpatient in 6 weeks Code(s): E03.9 - HYPOTHYROIDISM, UNSPECIFIED (2) JASPER (acute kidney injury) Assessment/Plan: -renal on board -Stable -monitor renal function -will need outpatient renal follow up Code(s): N17.9 - ACUTE KIDNEY FAILURE, UNSPECIFIED (3) Anemia Assessment/Plan: -Hg improved post transfusion -Ferrous Sulfate Code(s): D64.9 - ANEMIA, UNSPECIFIED (4) Constipation Assessment/Plan: -Colace, Miralax, and Senna Code(s): K59.00 - CONSTIPATION, UNSPECIFIED (5) Diabetes Assessment/Plan: -BGM ACHS -diabetic diet -ISS -D50 IVP prn if BS <70mg/dL Code(s): E11.9 - TYPE 2 DIABETES MELLITUS WITHOUT COMPLICATIONS (6) HLD (hyperlipidemia) Assessment/Plan: -Atorvastatin Code(s): E78.5 - HYPERLIPIDEMIA, UNSPECIFIED (7) HTN (hypertension) Assessment/Plan: -Hydralazine, Labetolol, Nifedine -low Na diet -cardura 2 mg bid -hold if SBP <110 and/or DBP <60, hold Labetolol for HR <60bpm -hold Labetolol dose if HR <60bpm Code(s): I10 - ESSENTIAL (PRIMARY) HYPERTENSION (8) Acute on chronic diastolic (congestive) heart failure Assessment/Plan: -Cardiology on board -daily weights -1L fluid restriction -tele monitoring -Furosemide daily Code(s): I50.33 - ACUTE ON CHRONIC DIASTOLIC (CONGESTIVE) HEART FAILURE dc planning--snf --d/w with pt and daughter agree with adira Condition: Fair - Instructions Referrals: Ro Espana MD [Primary Care Provider] - 2 Weeks - Home Medications Comprehensive Discharge Medication List: Ambulatory Orders Aspirin [Adult Aspirin Regimen] 81 mg PO DAILY 09/23/18 Atorvastatin Ca [Lipitor] 20 mg PO HS 09/23/18 Bupropion HCl [Wellbutrin Xl -] 150 mg PO DAILY 09/23/18 Carbidopa/Levodopa 25/100 [Sinemet 25/100 -] 1 each PO TID 09/23/18 Divalproex *ER* [Depakote *ER* -] 250 mg PO BID 09/23/18 Docusate Sodium [Stool Softener] 100 mg PO HS 09/23/18 Donepezil HCl [Aricept -] 10 mg PO DAILY 09/23/18 Insulin Glargine,Hum.rec.anlog [Lantus] 14 unit SQ ACBK 09/23/18 Labetalol HCl 400 mg PO TID 09/23/18 Lipase/Protease/Amylase [Creon Dr 36,000 Units Capsule] 1 each PO TID 09/23/18 Mirtazapine 30 mg PO HS 09/23/18 Nifedipine [Procardia Xl] 60 mg PO BID 09/23/18 Olmesartan Medoxomil [Benicar -] 40 mg PO DAILY 09/23/18 Pantoprazole Sodium [Protonix] 40 mg PO DAILY 09/23/18 Potassium Chloride [K-Dur -] 20 meq PO DAILY 09/23/18 traMADol HCL [Ultram -] 50 mg PO TID PRN 09/23/18 Alprazolam [Xanax] 0.5 mg PO Q12H PRN tablet MDD 2 09/30/18 Furosemide [Lasix -] 80 mg PO BID@0600,1400 #60 tablet 09/30/18 Levothyroxine [Synthroid -] 25 mcg PO DAILY@0700 #30 tablet 09/30/18 Polyethylene Glycol 3350 [Miralax 119 gm Btl -] 17 gm PO DAILY bottle 09/30/18 Potassium Chloride [K-Dur -] 20 meq PO DAILY #30 tablet.er 09/30/18 Sennosides [Senna -] 2 tab PO HS PRN tablet 09/30/18 hydrALAZINE HCL [Apresoline -] 100 mg PO TID #90 tablet 09/30/18 Doxazosin Mesylate [Cardura -] 2 mg PO BID tablet 10/11/18
[2018-10-11] MEDS: INSULIN SLIDING SCALE (NOVOLOG) 1 VIAL SQ SCH ×2 (07:27→13:04)
[2018-10-11] MEDS ORDERED: PT OWN MED DRAWER 7, Y5N ONE ×3 (08:55→13:01)
[2018-10-11] MEDS: LIPASE/PROTEASE/AMYLASE 36,000 UNIT CAPSULE PO SCH ×2 (08:57→13:05)
[2018-10-11] MEDS: FERROUS SO4 325 MG TABLET (FP) PO SCH (09:03)
[2018-10-11] MEDS: PANTOPRAZOLE 40 MG TABLET (FP) PO SCH (09:03)
[2018-10-11] MEDS: POTASSIUM CHLORIDE TABS 20 MEQ TABLET.ER (FP) PO SCH (09:04)
[2018-10-11] MEDS: DIVALPROEX SODIUM 250 MG TABLET E.C. PO SCH (09:04)
[2018-10-11] MEDS: DONEPEZIL HCL 10 MG TABLET (FP) PO SCH (09:04)
[2018-10-11] MEDS: ASPIRIN COATED 81 MG TABLET.EC PO SCH (09:04)
[2018-10-11] MEDS: NIFEdipine E.R 60 MG TABLET (UD) PO SCH (09:05)
[2018-10-11] MEDS: DOXAZOSIN MESYLATE 2 MG TABLET (FP) PO SCH (09:06)
[2018-10-11] MEDS: PATIENT'S OWN MEDICATION (NON-FORMULARY) (Olmesartan Medoxomil 40 MG) PO SCH (09:07)
[2018-10-11] MEDS: POLYETHYLENE GLYCOL 3350 119 GM BTL PO SCH (09:07)
--- NOTE | 2018-10-11 11:11 | PN ---
Progress Note (short form) - Note Progress Note: Resting in NAD. No acute events overnight. Intake & Output 10/08/18 10/09/18 10/10/18 10/11/18 23:59 23:59 23:59 23:59 Intake Total 700 500 250 Output Total 1100 1400 200 Balance -400 -900 50 Weight 128 lb 7 oz 128 lb 3.2 oz 128 lb 9 oz 127 lb 7.364 oz Last Vital Signs Temp Pulse Resp BP Pulse Ox 98.1 F 66 13 164/40 L 96 10/11/18 06:00 10/11/18 08:00 10/11/18 08:00 10/11/18 08:00 10/11/18 08:34 Active Medications Acetaminophen (Tylenol -) 650 mg PO Q4H PRN PRN Reason: PAIN LEVEL 1-5 Aspirin (Ecotrin -) 81 mg PO DAILY [facility] Last Admin: 10/11/18 09:04 Dose: 81 mg Atorvastatin Calcium (Lipitor -) 20 mg PO HS [facility] Last Admin: 10/10/18 21:32 Dose: 20 mg Bupropion HCl (Wellbutrin Xl -) 150 mg PO DAILY [facility] Last Admin: 10/11/18 09:04 Dose: 150 mg Carbidopa/Levodopa (Sinemet 25/100 -) 1.5 each PO TID@0700,1200,1700 [facility] Last Admin: 10/11/18 06:18 Dose: 1.5 each Dextrose (D50w (Vial) -) 25 gm IVPUSH PRN PRN PRN Reason: HYPOGLYCEMIA Divalproex Sodium (Depakote -) 250 mg PO DAILY [facility] Last Admin: 10/11/18 09:04 Dose: 250 mg Divalproex Sodium (Depakote -) 125 mg PO HS [facility] Last Admin: 10/10/18 21:31 Dose: 125 mg Docusate Sodium (Colace -) 100 mg PO HS [facility] Last Admin: 10/10/18 21:32 Dose: Not Given Donepezil HCl (Aricept -) 10 mg PO DAILY [facility] Last Admin: 10/11/18 09:04 Dose: 10 mg Doxazosin Mesylate (Cardura -) 2 mg PO BID [facility] Last Admin: 10/11/18 09:06 Dose: 2 mg Ferrous Sulfate (Feosol -) 325 mg PO DAILY [facility] Last Admin: 10/11/18 09:03 Dose: 325 mg Furosemide (Lasix -) 80 mg PO BID@0600,1400 [facility] Last Admin: 10/11/18 06:16 Dose: 80 mg Hydralazine HCl (Apresoline -) 100 mg PO TID [facility] Last Admin: 10/11/18 06:17 Dose: 100 mg Insulin Aspart (Novolog Vial Sliding Scale -) 1 vial SQ TIDAC [facility]; Protocol Last Admin: 10/11/18 07:27 Dose: 2 units Labetalol HCl (Normodyne -) 400 mg PO TID [facility] Last Admin: 10/11/18 06:17 Dose: 400 mg Levothyroxine Sodium (Synthroid -) 25 mcg PO DAILY@0700 [facility] Last Admin: 10/11/18 06:17 Dose: 25 mcg Mirtazapine (Remeron -) 30 mg PO HS [facility] Last Admin: 10/10/18 21:32 Dose: 30 mg Nifedipine (Procardia Xl -) 60 mg PO BID [facility] Last Admin: 10/11/18 09:05 Dose: 60 mg Non-Formulary Medication (Olmesartan Medoxomil) 40 mg PO DAILY [facility] Last Admin: 10/11/18 09:07 Dose: 40 mg Ondansetron HCl (Zofran Injection) 4 mg IVPB Q6H PRN PRN Reason: NAUSEA Last Admin: 10/09/18 23:51 Dose: 4 mg Pancrelipase (Creon Dr 36,000 Units Capsule) 1 cap PO TIDCM [facility] Last Admin: 10/11/18 08:57 Dose: 1 cap Pantoprazole Sodium (Protonix -) 40 mg PO DAILY [facility] Last Admin: 10/11/18 09:03 Dose: 40 mg Polyethylene Glycol (Miralax (For Daily Use) -) 17 gm PO DAILY [facility] Last Admin: 10/11/18 09:07 Dose: 17 grams Potassium Chloride (K-Dur -) 20 meq PO DAILY [facility] Last Admin: 10/11/18 09:04 Dose: 20 meq Senna (Senna -) 2 tab PO HS PRN PRN Reason: CONSTIPATION Last Admin: 09/28/18 21:09 Dose: 2 tab Gen: NAD Heart: RRR Lung: decreased breath sounds at the bases Abd: soft, nontender Ext: less edema Laboratory Results - last 24 hr 10/10/18 10/10/18 10/11/18 12:16 16:37 07:16 POC Glucometer 221 188 201 Problem List - Problems (1) Acute on chronic diastolic (congestive) heart failure Code(s): I50.33 - ACUTE ON CHRONIC DIASTOLIC (CONGESTIVE) HEART FAILURE (2) CKD (chronic kidney disease) Code(s): N18.9 - CHRONIC KIDNEY DISEASE, UNSPECIFIED (3) Diabetes Code(s): E11.9 - TYPE 2 DIABETES MELLITUS WITHOUT COMPLICATIONS (4) HLD (hyperlipidemia) Code(s): E78.5 - HYPERLIPIDEMIA, UNSPECIFIED (5) HTN (hypertension) Code(s): I10 - ESSENTIAL (PRIMARY) HYPERTENSION (6) Pleural effusion Code(s): J90 - PLEURAL EFFUSION, NOT ELSEWHERE CLASSIFIED A/P Acute on Chronic Diastolic Heart Failure Poorly Controlled HTN Pulmonary HTN Acute on Chronic Renal Failure DM Hyperlipidemia Parkinsons Anemia BP meds as ordered Lasix O2 to keep Spo2 >90% VTE prophylaxis D/C planning Dr Zee
--- NOTE | 2018-10-11 11:23 | PN ---
Progress Note, Physician History of Present Illness: Pt seen and examined at bedside. She is awake and alert. She denies shortness of breath. - Current Medication List Current Medications: Active Medications Acetaminophen (Tylenol -) 650 mg PO Q4H PRN PRN Reason: PAIN LEVEL 1-5 Aspirin (Ecotrin -) 81 mg PO DAILY [facility] Last Admin: 10/11/18 09:04 Dose: 81 mg Atorvastatin Calcium (Lipitor -) 20 mg PO HS [facility] Last Admin: 10/10/18 21:32 Dose: 20 mg Bupropion HCl (Wellbutrin Xl -) 150 mg PO DAILY [facility] Last Admin: 10/11/18 09:04 Dose: 150 mg Carbidopa/Levodopa (Sinemet 25/100 -) 1.5 each PO TID@0700,1200,1700 [facility] Last Admin: 10/11/18 06:18 Dose: 1.5 each Dextrose (D50w (Vial) -) 25 gm IVPUSH PRN PRN PRN Reason: HYPOGLYCEMIA Divalproex Sodium (Depakote -) 250 mg PO DAILY [facility] Last Admin: 10/11/18 09:04 Dose: 250 mg Divalproex Sodium (Depakote -) 125 mg PO HS [facility] Last Admin: 10/10/18 21:31 Dose: 125 mg Docusate Sodium (Colace -) 100 mg PO [facility] Last Admin: 10/10/18 21:32 Dose: Not Given Donepezil HCl (Aricept -) 10 mg PO DAILY [facility] Last Admin: 10/11/18 09:04 Dose: 10 mg Doxazosin Mesylate (Cardura -) 2 mg PO BID [facility] Last Admin: 10/11/18 09:06 Dose: 2 mg Ferrous Sulfate (Feosol -) 325 mg PO DAILY [facility] Last Admin: 10/11/18 09:03 Dose: 325 mg Furosemide (Lasix -) 80 mg PO BID@0600,1400 [facility] Last Admin: 10/11/18 06:16 Dose: 80 mg Hydralazine HCl (Apresoline -) 100 mg PO TID [facility] Last Admin: 10/11/18 06:17 Dose: 100 mg Insulin Aspart (Novolog Vial Sliding Scale -) 1 vial SQ TIDAC [facility]; Protocol Last Admin: 10/11/18 07:27 Dose: 2 units Labetalol HCl (Normodyne -) 400 mg PO TID [facility] Last Admin: 10/11/18 06:17 Dose: 400 mg Levothyroxine Sodium (Synthroid -) 25 mcg PO DAILY@0700 [facility] Last Admin: 10/11/18 06:17 Dose: 25 mcg Mirtazapine (Remeron -) 30 mg PO HS [facility] Last Admin: 10/10/18 21:32 Dose: 30 mg Nifedipine (Procardia Xl -) 60 mg PO BID [facility] Last Admin: 10/11/18 09:05 Dose: 60 mg Non-Formulary Medication (Olmesartan Medoxomil) 40 mg PO DAILY [facility] Last Admin: 10/11/18 09:07 Dose: 40 mg Ondansetron HCl (Zofran Injection) 4 mg IVPB Q6H PRN PRN Reason: NAUSEA Last Admin: 10/09/18 23:51 Dose: 4 mg Pancrelipase (Creon Dr 36,000 Units Capsule) 1 cap PO TIDCM [facility] Last Admin: 10/11/18 08:57 Dose: 1 cap Pantoprazole Sodium (Protonix -) 40 mg PO DAILY [facility] Last Admin: 10/11/18 09:03 Dose: 40 mg Polyethylene Glycol (Miralax (For Daily Use) -) 17 gm PO DAILY [facility] Last Admin: 10/11/18 09:07 Dose: 17 grams Potassium Chloride (K-Dur -) 20 meq PO DAILY [facility] Last Admin: 10/11/18 09:04 Dose: 20 meq Senna (Senna -) 2 tab PO HS PRN PRN Reason: CONSTIPATION Last Admin: 09/28/18 21:09 Dose: 2 tab - Objective Vital Signs: Vital Signs Temperature 98.1 F 10/11/18 06:00 Pulse Rate 66 10/11/18 08:00 Respiratory Rate 13 10/11/18 08:00 Blood Pressure 164/40 L 10/11/18 08:00 O2 Sat by Pulse Oximetry (%) 96 10/11/18 08:34 Constitutional: Yes: Calm Eyes: Yes: Conjunctiva Clear HENT: Yes: Atraumatic Neck: Yes: Supple Cardiovascular: Yes: S1, S2 Respiratory: Yes: On Nasal O2 Gastrointestinal: Yes: Soft Genitourinary: Yes: WNL Musculoskeletal: Yes: WNL Edema: No Wound/Incision: Yes: Unapproximated Psychiatric: Yes: Oriented Labs: CBC, BMP 10/09/18 05:40 10/09/18 05:40 Problem List - Problems (1) CHF (congestive heart failure) Code(s): I50.9 - HEART FAILURE, UNSPECIFIED Qualifiers: (2) CKD (chronic kidney disease) Code(s): N18.9 - CHRONIC KIDNEY DISEASE, UNSPECIFIED Assessment/Plan Current Medications Generic Name Dose Route Start Last Admin Trade Name Freq PRN Reason Stop Dose Admin Acetaminophen 650 mg 09/23/18 15:59 Tylenol - PO Q4H PRN PAIN LEVEL 1-5 Aspirin 81 mg 09/24/18 10:00 10/11/18 09:04 Ecotrin - PO 81 mg DAILY JOYCE Administration Atorvastatin Calcium 20 mg 09/23/18 22:00 10/10/18 21:32 Lipitor - PO 20 mg HS JOYCE Administration Bupropion HCl 150 mg 09/24/18 10:00 10/11/18 09:04 Wellbutrin Xl - PO 150 mg DAILY [facility] Administration Carbidopa/Levodopa 1.5 each 10/10/18 13:00 10/11/18 06:18 Sinemet 25/100 - PO 1.5 each TID@0700,1200,1700 JOYCE Administration Dextrose 25 gm 09/27/18 16:28 D50w (Vial) - IVPUSH PRN PRN HYPOGLYCEMIA Divalproex Sodium 250 mg 09/24/18 10:00 10/11/18 09:04 Depakote - PO 250 mg DAILY [facility] Administration Divalproex Sodium 125 mg 09/23/18 22:00 10/10/18 21:31 Depakote - PO 125 mg HS JOYCE Administration Docusate Sodium 100 mg 09/23/18 22:00 10/10/18 21:32 Colace - PO Not Given HS JOYCE Donepezil HCl 10 mg 09/24/18 10:00 10/11/18 09:04 Aricept - PO 10 mg DAILY [facility] Administration Doxazosin Mesylate 2 mg 10/06/18 10:00 10/11/18 09:06 Cardura - PO 2 mg BID JOYCE Administration Ferrous Sulfate 325 mg 09/30/18 10:00 10/11/18 09:03 Feosol - PO 325 mg DAILY [facility] Administration Furosemide 80 mg 09/29/18 06:00 10/11/18 06:16 Lasix - PO 80 mg BID@0600,1400 [facility] Administration Hydralazine HCl 100 mg 09/30/18 11:19 10/11/18 06:17 Apresoline - PO 100 mg TID JOYCE Administration Insulin Aspart 1 vial 09/23/18 16:30 10/11/18 07:27 Novolog Vial Sliding Scale - SQ 2 units TIDAC JOYCE Administration Protocol Labetalol HCl 400 mg 10/02/18 19:33 10/11/18 06:17 Normodyne - PO 400 mg TID [facility]CE Administration Levothyroxine Sodium 25 mcg 09/24/18 09:50 10/11/18 06:17 Synthroid - PO 25 mcg DAILY@0700 [facility] Administration Mirtazapine 30 mg 09/26/18 22:00 10/10/18 21:32 Remeron - PO 30 mg HS [facility] Administration Nifedipine 60 mg 09/24/18 13:37 10/11/18 09:05 Procardia Xl - PO 60 mg BID [facility] Administration Non-Formulary Medication 40 mg 09/24/18 10:00 10/11/18 09:07 Olmesartan Medoxomil PO 40 mg DAILY [facility] Administration Ondansetron HCl 4 mg 10/02/18 08:28 10/09/18 23:51 Zofran Injection IVPB 4 mg Q6H PRN Administration NAUSEA Pancrelipase 1 cap 09/23/18 17:30 10/11/18 08:57 Credyana Sweeney 36,000 Units Capsule PO 1 cap TIDCM [facility] Administration Pantoprazole Sodium 40 mg 09/24/18 10:00 10/11/18 09:03 Protonix - PO 40 mg DAILY [facility] Administration Polyethylene Glycol 17 gm 09/27/18 16:45 10/11/18 09:07 Miralax (For Daily Use) - PO 17 grams DAILY [facility] Administration Potassium Chloride 20 meq 09/24/18 10:00 10/11/18 09:04 K-Dur - PO 20 meq DAILY [facility] Administration Senna 2 tab 09/28/18 10:28 09/28/18 21:09 Senna - PO 2 tab HS PRN Administration CONSTIPATION Impression 1. JASPER/CKD 2. fluid overload 3. HLD 4. shortness of breath 5. HTN 6. DM 7. proteinuria Impression - cont to monitor bp - cont bp meds - cont lasix and monitor volume status - monitor labs in rehab - will need outpt follow up - cont arb
--- NOTE | 2018-10-11 13:29 | CONSULT ---
Consult Consult Specialty:: PM&R Dr Valadez for Dr Palomares - History of Present Illness Chief Complaint: tired History of Present Illness: This is a 78 year old woman with a medical history of Parkinson's disease, Alzheimer's dementia, CHF, LV diastolic dysfunction, HTN, pHTN, diverticulosis, CKD, DM, who was recently admitted to [facility] for CHF and HTN with discharge 1 week prior to this admission, who returned to the ED 09/23/18 with worsening SOB since her discharge. She was admitted to the ICU for acute CHF exacerbation and JASPER on CKD due to fluid overload, c/b toxic metabolic encephalopathy. Cardiology , Pulm, Renal, Neuro and Heme-Onc were consulted. On 10/10/18, with PT she was Minimum Assist in Transfers, and ambulated 10 feet Contact Guard with Rolling Walker. Physiatry is being consulted for further recommendations. 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, Peripheral Neuropathy, Parkinson's Cardio/Vascular: Yes: HTN, Hyperlipdemia Gastrointestinal: Yes: Diverticulosis Psych: Yes: Anxiety Musculoskeletal: Yes: Osteoarthritis Endocrine: Yes: Diabetes Mellitus - Past Surgical History Past Surgical History: Yes: Appendectomy, Cholecystectomy, - Alcohol/Substance Use Hx Alcohol Use: No - Smoking History Smoking history: Never smoked Have you smoked in the past 12 months: No Aproximately how many cigarettes per day: 0 - Social History Usual Living Arrangement: With Significant Other (with daughter in apartment without stairs, ambulated with SC) 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 (also has TUBE SKIVER 6 hours x5 days and 5 hours x2 days) History of Recent Travel: No Home Medications - Allergies Allergies/Adverse Reactions: Allergies Allergy/AdvReac Type Severity Reaction Status Date / Time valsartan [From Diovan] Allergy Mild Verified 09/23/18 11:27 - Home Medications Home Medications: Ambulatory Orders Aspirin [Adult Aspirin Regimen] 81 mg PO DAILY 09/23/18 Atorvastatin Ca [Lipitor] 20 mg PO HS 09/23/18 Bupropion HCl [Wellbutrin Xl -] 150 mg PO DAILY 09/23/18 Carbidopa/Levodopa 25/100 [Sinemet 25/100 -] 1 each PO TID 09/23/18 Divalproex *ER* [Depakote *ER* -] 250 mg PO BID 09/23/18 Docusate Sodium [Stool Softener] 100 mg PO HS 09/23/18 Donepezil HCl [Aricept -] 10 mg PO DAILY 09/23/18 Insulin Glargine,Hum.rec.anlog [Lantus] 14 unit SQ ACBK 09/23/18 Labetalol HCl 400 mg PO TID 09/23/18 Lipase/Protease/Amylase [Elaine Sweeney 36,000 Units Capsule] 1 each PO TID 09/23/18 Mirtazapine 30 mg PO HS 09/23/18 Nifedipine [Procardia Xl] 60 mg PO BID 09/23/18 Olmesartan Medoxomil [Benicar -] 40 mg PO DAILY 09/23/18 Pantoprazole Sodium [Protonix] 40 mg PO DAILY 09/23/18 Potassium Chloride [K-Dur -] 20 meq PO DAILY 09/23/18 traMADol HCL [Ultram -] 50 mg PO TID PRN 09/23/18 Alprazolam [Xanax] 0.5 mg PO Q12H PRN tablet MDD 2 09/30/18 Furosemide [Lasix -] 80 mg PO BID@0600,1400 #60 tablet 09/30/18 Levothyroxine [Synthroid -] 25 mcg PO DAILY@0700 #30 tablet 09/30/18 Polyethylene Glycol 3350 [Miralax 119 gm Btl -] 17 gm PO DAILY bottle 09/30/18 Potassium Chloride [K-Dur -] 20 meq PO DAILY #30 tablet.er 09/30/18 Sennosides [Senna -] 2 tab PO HS PRN tablet 09/30/18 hydrALAZINE HCL [Apresoline -] 100 mg PO TID #90 tablet 09/30/18 Doxazosin Mesylate [Cardura -] 2 mg PO BID tablet 10/11/18 Review of Systems Findings/Remarks: Denies fevers, chills, changes in vision/ hearing/ mood, CP, SOB, nausea, vomiting, dysuria, numbness/ paresthesias, muscle/ joint pain. Notes abdominal pain and alternating constipation/ diarrhea "when I don't eat" ( doesn't want to eat because her food doesn't have salt), and being tired/ decreased endurance Physical Exam Vital Signs: Vital Signs Temperature 98.1 F 10/11/18 06:00 Pulse Rate 66 10/11/18 08:00 Respiratory Rate 13 10/11/18 08:00 Blood Pressure 164/40 L 10/11/18 08:00 O2 Sat by Pulse Oximetry (%) 96 10/11/18 08:34 Musculoskeletal: Yes: Other (General: calm elderly HF sitting in chair NAD on supplemental O2 N/M: B shoulder flexion to 140 degrees, 4+/5 BUE/ BLE without pain Extremities: trace R foot/ no LLE pitting edema, no B calf tenderness) Labs: CBC, BMP 10/09/18 05:40 10/09/18 05:40 Assessment/Plan Impression: 1) Deficits mobility/ ADLs 2) Deconditioning 3) Gait abnormality 4) Acute on chronic CHF exacerbation 5) JASPER on CKD 6) hx Alzheimer's dementia c/b toxic- metabolic encephalopathy 7) hx Parkinson's disease 8) hx LV diastolic dysfunction, HTN, HLD 9) hx pHTN 10) hx diverticulosis 11) hx DM 12) Hypothyroidism 13) Anemia, resolved 14) BMI WNL 15) Up to date pneumovax, no documented flu shot Recommendations: 1) PT for stretching strengthening ROM endurance and functional mobility 2) Falls, safety precautions 3) Cardiopulmonary, diabetic precautions 4) Encourage prn bowel regimen 5) Monitor BMP given renal function 6) Continue plan per primary team 7) Discharge planning: she would benefit from short- term inpatient rehabilitation once medically stable. Patient would prefer to go home with home services Thank you for this referral.
[2018-10-11 14:12] VITALS: BP 162/103; PULSE 62; TEMP 98.2
== END 2018-10-11 16:19 | DRG 682 ==
LOC: JER 11:19 → JERBED 15:30 → J2W 18:15 → JERBED 18:17 → J2W 19:39
PROVIDERS: ADMIT Family Medicine; ATTEND Family Medicine
PROC: 30233N1 Transfusion of Nonautologous Red Blood Cells into Peripheral Vein, Percutaneous Approach (ICD-10-PCS; principal; 2018-10-06)
DX: N17.9 Acute kidney failure, unspecified (principal); I50.33 Acute on chronic diastolic (congestive) heart failure; G93.41 Metabolic encephalopathy; I13.0 Hypertensive heart and chronic kidney disease with heart failure and stage 1 through stage 4 chronic kidney disease, or unspecified chronic kidney disease; E78.5 Hyperlipidemia, unspecified; K57.90 Diverticulosis of intestine, part unspecified, without perforation or abscess without bleeding; N84.0 Polyp of corpus uteri; R32 Unspecified urinary incontinence; G20 Parkinson's disease; F02.80 Dementia in other diseases classified elsewhere, unspecified severity, without behavioral disturbance, psychotic disturbance, mood disturbance, and anxiety; E11.42 Type 2 diabetes mellitus with diabetic polyneuropathy; F41.9 Anxiety disorder, unspecified; R06.02 Shortness of breath; D63.8 Anemia in other chronic diseases classified elsewhere; I27.20 Pulmonary hypertension, unspecified; E03.9 Hypothyroidism, unspecified; E11.22 Type 2 diabetes mellitus with diabetic chronic kidney disease; N18.9 Chronic kidney disease, unspecified; R80.9 Proteinuria, unspecified; R26.9 Unspecified abnormalities of gait and mobility; K59.00 Constipation, unspecified; E87.70 Fluid overload, unspecified; G43.909 Migraine, unspecified, not intractable, without status migrainosus; G25.81 Restless legs syndrome; R10.13 Epigastric pain; G25.3 Myoclonus; E11.43 Type 2 diabetes mellitus with diabetic autonomic (poly)neuropathy; R29.6 Repeated falls; R62.7 Adult failure to thrive; Z68.24 Body mass index [BMI] 24.0-24.9, adult; Z99.81 Dependence on supplemental oxygen
CPT/HCPCS: 36415; 36430; 70450-TC; 71045-TC-FY; 71046-TC-FY; 76700-TC; 80048; 80053; 81003; 82272; 82550; 82570; 82607; 82728; 82747; 82962; 83540; 83550; 83735; 83880; 84100; 84156; 84439; 84443; 84484; 85014; 85025; 85027; 86850; 86900; 86901; 86922; 87086; 93005; 93010; 94640; 97116-GP; 99283-25; J1756; P9038; P9058

== ENCOUNTER 2018-12-23 15:49 | Inpatient (IN) | payer OTHER ==
--- NOTE | 2018-12-23 16:14 | PDOC ---
Rapid Medical Evaluation Time Seen by Provider: 12/23/18 16:05 Medical Evaluation: Allergies Allergy/AdvReac Type Severity Reaction Status Date / Time valsartan [From Diovan] Allergy Mild Verified 09/23/18 11:27 12/23/18 16:05 I have performed a brief in-person evaluation of this patient. The patient presents with a chief complaint of: 78 yo F w/ DM, HTN, CHF, dementia, parkinson's c/o Nausea and intermittent "gagging" described as "jerking" per daughter. Pt was constipated, given laxatives, had full BMs 2 days ago, 1 episode of vomiting 2 days ago. No CP, no SOB. Dr. Espana is PMD and he would like to be given a call. Possible admission. Pertinent physical exam findings: Pt in NAD I have ordered the following: CBC, CMP, EKG, abdominal flat and upright film, CXR The patient will proceed to the ED for further evaluation. Discharge Disposition - Diagnosis Nausea - Referrals - Patient Instructions - Post Discharge Activity
--- NOTE | 2018-12-23 16:21 | PDOC ---
History of Present Illness - General Chief Complaint: Weakness Stated Complaint: VOMITING/NAUSEA/SHAKING Time Seen by Provider: 12/23/18 16:05 History Source: Patient, Family (daughter) Exam Limitations: Language Barrier - History of Present Illness Initial Comments: 12/23/18 16:42 78yo F with PMH of DM, HTN, Parkinson's Disease, Dementia, CHF, CKD, Diverticulosis presenting to ED for jerking movements and weakness that started today. Per daughter patient had a CT scan 1w ago showing fecal impaction. 3d ago , patient was given Miralax and saline enema. Pt then had bowel movements all of Wednesday until 4am. Pt then started vomiting yesterday and this AM (nbnb) and jerk like movements started today. Daughter called PMD and was told to come to the ER. per daughter, pt had a similar presentation before and was dehydrated. She endorses nausea which she has had for many months and has been following up with her GI doctor. She denies abdominal pain, urinary symptoms, fevers, chills, sob, chest pain, headaches, antibiotic use, travel. PMD: [facility] GI: Lantin PMH; see hpi PSH: cholecystectomy, appendectomy, Meds: see med rec Allergies: valsartan Past History - Past Medical History Allergies/Adverse Reactions: Allergies Allergy/AdvReac Type Severity Reaction Status Date / Time No Known Allergies Allergy Verified 12/23/18 17:14 Home Medications: Ambulatory Orders Aspirin [Adult Aspirin Regimen] 81 mg PO DAILY 09/23/18 Atorvastatin Ca [Lipitor] 20 mg PO HS 09/23/18 Bupropion HCl [Wellbutrin Xl -] 150 mg PO DAILY 09/23/18 Carbidopa/Levodopa 25/100 [Sinemet 25/100 -] 1 each PO TID 09/23/18 Docusate Sodium [Stool Softener] 100 mg PO HS 09/23/18 Donepezil HCl [Aricept -] 10 mg PO DAILY 09/23/18 Insulin Glargine,Hum.rec.anlog [Lantus] 14 unit SQ ACBK 09/23/18 Labetalol HCl 400 mg PO TID 09/23/18 Lipase/Protease/Amylase [Elaine Sweeney 36,000 Units Capsule] 1 each PO TID 09/23/18 Mirtazapine 30 mg PO HS 09/23/18 Nifedipine [Procardia Xl] 60 mg PO BID 09/23/18 Olmesartan Medoxomil [Benicar -] 40 mg PO DAILY 09/23/18 Pantoprazole Sodium [Protonix] 40 mg PO DAILY 09/23/18 traMADol HCL [Ultram -] 50 mg PO TID PRN 09/23/18 Furosemide [Lasix -] 80 mg PO BID@0600,1400 #60 tablet 09/30/18 Levothyroxine [Synthroid -] 25 mcg PO DAILY@0700 #30 tablet 09/30/18 Polyethylene Glycol 3350 [Miralax 119 gm Btl -] 17 gm PO DAILY bottle 09/30/18 Potassium Chloride [K-Dur -] 20 meq PO DAILY #30 tablet.er 09/30/18 Sennosides [Senna -] 2 tab PO HS PRN tablet 09/30/18 hydrALAZINE HCL [Apresoline -] 100 mg PO TID #90 tablet 09/30/18 Doxazosin Mesylate [Cardura -] 2 mg PO BID tablet 10/11/18 Anemia: No Asthma: No Cancer: No Cardiac Disorders: No CVA: No COPD: No CHF: Yes (oxygen dependent) DVT: No Dementia: Yes Diabetes: Yes GI Disorders: Yes (DIVERTICULOSIS, IBM) Disorders: Yes (UTERINE POLYPS,URINARY INCONTINENCE) HTN: Yes Hypercholesterolemia: Yes Liver Disease: No Seizures: No Thyroid Disease: No - Surgical History Abdominal Surgery: (abdominoplasty 15 yrs ago (tissue became necrotic)) Appendectomy: Yes Cardiac Surgery: No Cholecystectomy: Yes Lung Surgery: No Neurologic Surgery: No Orthopedic Surgery: No - Immunization History Immunization Up to Date: Yes - Psycho Social/Smoking Cessation Hx Smoking Status: No Smoking History: Never smoked Have you smoked in the past 12 months: No Number of Cigarettes Smoked Daily: 0 Hx Alcohol Use: No Drug/Substance Use Hx: No Substance Use Type: None Hx Substance Use Treatment: No Review of Systems - Review of Systems Constitutional: Yes: Weakness. No: Chills, Fever HEENTM: No: Symptoms Reported Respiratory: No: Cough, Shortness of Breath Cardiac (ROS): No: Chest Pain, Syncope ABD/GI: Yes: Nausea, Vomiting. No: Constipated, Diarrhea : No: Symptoms Reported Musculoskeletal: No: Back Pain, Muscle Pain, Neck Pain Integumentary: No: Bruising, Change in Color Neurological: Yes: See HPI *Physical Exam - Vital Signs Last Vital Signs Temp Pulse Resp BP Pulse Ox 98.2 F 60 18 122/72 98 12/23/18 16:07 12/23/18 16:07 12/23/18 16:07 12/23/18 16:07 12/23/18 16:07 - Physical Exam General Appearance: Yes: Nourished, Appropriately Dressed. No: Apparent Distress HEENT: positive: EOMI, DIAMOND, Normal ENT Inspection Neck: positive: Trachea midline, Supple. negative: Lymphadenopathy (R), Lymphadenopathy (L) Respiratory/Chest: positive: Lungs Clear, Normal Breath Sounds. negative: Crackles, Rales, Rhonchi, Stridor, Wheezing Cardiovascular: positive: Regular Rhythm, Regular Rate, S1, S2. negative: Edema , JVD, Murmur Vascular Pulses: Dorsalis-Pedis (R): 2+, Doralis-Pedis (L): 2+ Gastrointestinal/Abdominal: positive: Normal Bowel Sounds, Soft. negative: Tender Musculoskeletal: negative: CVA Tenderness, Muscle Spasm Extremity: positive: Normal Capillary Refill. negative: Swelling, Calf Tenderness, Erythema Integumentary: positive: Normal Color, Dry, Warm Neurologic: positive: crayon sawyer II-XII NML intact, Fully Oriented, Alert, Normal Mood/ Affect, Normal Response, Other (bursts of jerk like movements in all extremities and trunkal, nonpurposeful) ED Treatment Course - LABORATORY CBC & Chemistry Diagram: 12/23/18 16:38 12/23/18 16:38 Medical Decision Making - Medical Decision Making 12/23/18 17:55 78yo F presenting for nausea, vomiting and jerk like movements. ddx includes but not limited to electrolyte abnormality, polypharmacy, mass/ malignancy, Parkinson's labs ordered including lipase, ekg,cxr, ct head. ekg: normal sinus rhythm at 62 bpm, no kaylah or depressions. intervals wnl. no signs of acute ischemia. cxr: no consolidations or infiltrates, compared to prior cxr, no congestion. all labs wnl. CT head negative for acute pathology. Tried calling Dr. Espana office, but not there. will admit to med/surg. Discharge - Discharge Information Problems reviewed: Yes Clinical Impression/Diagnosis: Nausea, Jerky body movements Vomiting Qualifiers: Vomiting type: unspecified Vomiting Intractability: non-intractable Nausea presence: with nausea Qualified Code(s): R11.2 - Nausea with vomiting, unspecified Condition: Stable - Admission Yes - Follow up/Referral - Patient Discharge Instructions - Post Discharge Activity
[2018-12-23] MEDS ORDERED: SODIUM CHLORIDE 1,000 ML IV STA (16:39)
[2018-12-23] MEDS ORDERED: ONDANSETRON 4 MG/2 ML VIAL IVPB ONE (16:40)
[2018-12-23] MEDS ORDERED: ONDANSETRON 4 MG/2 ML VIAL ONE (16:44)
[2018-12-23 16:59] LABS: BASO % 0.7 % (0-2.0); EOS % 1.5 % (0-4.5); HEMATOCRIT 33.2 % (32.4-45.2); HEMOGLOBIN 11.3 GM/dL (10.7-15.3); LYMPH % 18.6 % (8-40); MCH 29.7 pg (25.7-33.7); MEAN CELL VOLUME 87.2 fl (80-96); MEAN PLT VOLUME 7.9 fl (7.5-11.1); MONO % 8.6 % (3.8-10.2); NEUT % 70.6 % (42.8-82.8); PLATELET COUNT 346 K/MM3 (134-434); RBC 3.81 M/mm3 (3.60-5.2); RDW 14.8 % (11.6-15.6); WHITE BLOOD COUNT 5.7 K/mm3 (4.0-10.0)
[2018-12-23 17:14] LABS: ALBUMIN 3.2 g/dl (3.4-5.0); BILIRUBIN,TOTAL 0.5 mg/dL (0.2-1); BLOOD UREA NITROGEN 34.9 mg/dL (7-18); CALCIUM 9.2 mg/dL (8.5-10.1); CREATININE 1.6 mg/dL (0.55-1.3); MAGNESIUM 2.3 mg/dL (1.8-2.4); PHOSPHOROUS 3.4 mg/dL (2.5-4.9); POTASSIUM 3.6 mmol/L (3.5-5.1); TOT PROT 6.4 g/dl (6.4-8.2)
--- NOTE | 2018-12-23 17:17 | PDOC ---
Attending Attestation - Resident Resident Name: Kanwal Davis - ED Attending Attestation I have performed the following: I have examined & evaluated the patient, The case was reviewed & discussed with the resident, I agree w/resident's findings & plan - HPI HPI: 12/23/18 17:24 78yo F with PMH of DM, HTN, Parkinson's Disease, Dementia, CHF, CKD, Diverticulosis presenting to ED for jerking movements and weakness that started today. increasing in frequency and intensity, involuntary in nature Pt then started vomiting yesterday and this AM (nbnb) and jerk like movements started today. Daughter called PMD and was told to come to the ER. per daughter , pt had a similar presentation before and was dehydrated. +chronic nausea and constipation (recent fecal impaction), followed by GI, unresolved by true today. sent in by Dr Espana for admission She denies abdominal pain, urinary symptoms, fevers, chills, sob, chest pain, headaches, antibiotic use, travel. no other medication changes. PMD Dr Espana, GI Dr Ibanez 12/23/18 17:27 - Physicial Exam PE: 12/23/18 18:44 Agree with the resident's HPI and PE as documented in the electronic medical record. NAD, well appearing, EOMI, PERRL, MMM, nl conjunctiva, anicteric; neck supple. lungs clear, RRR, abdomen soft nontender. Back nontender. CHRISITANSON x4, no focal neuro deficits. No peripheral edema. normal color for ethnicity, WWP. + increased tonicity in BLE, +involuntary LE jerks - Medical Decision Making 12/23/18 17:17 See HPI for details. Prior notes reviewed, including admissions, discharges and consultations. Vital signs reviewed, wnl. Vital Signs Temp Pulse Resp BP Pulse Ox 98.2 F 60 18 122/72 98 12/23/18 16:07 12/23/18 16:07 12/23/18 16:07 12/23/18 16:07 12/23/18 16:07 laboratory results and imaging reviewed, basic labs and lytes wnl, LFTs/lipase wnl Cardiac panel_neg EKG normal sinus rhythm at 62 bpm, no interval abnormalities, left axis deviation, narrow QRS, ST and T wave segments and morphology normal. Nonspecific T wave abnormalities CT head neg for acute CVA/mass or abnormalities, chronic changes. no acute chest pathology on cxr, no fluid overload or infiltrate. ED course - while here, jerking has stopped. no acute distress. neuro intact. - plan admit per pmd request, medical management, neuro eval for invol jerks, worsening parkinsons or medication side effect (recently started on agents) 12/23/18 19:55 12/23/18 19:56 Heart Score/ECG Review #1 ECG reviewed & interpreted by me at: 16:30 General ECG Interpretation: Sinus Rhythm, Normal Rate, Normal Intervals Compared to previous ECG there are: No significant change 12/23/18 19:55 EKG normal sinus rhythm at 62 bpm, no interval abnormalities, left axis deviation, narrow QRS, ST and T wave segments and morphology normal. Nonspecific T wave abnormalities
[2018-12-23] MEDS ORDERED: LABETALOL HCL 200 MG TABLET (FP) PO ONE (19:47)
[2018-12-23] MEDS ORDERED: FUROSEMIDE 40 MG TABLET (FP) PO ONE (19:47)
[2018-12-23] MEDS ORDERED: hydrALAZINE HCL 50 MG TABLET (FP) PO ONE (19:47)
[2018-12-23] MEDS ORDERED: FUROSEMIDE 40 MG TABLET (FP) ONE (20:03)
[2018-12-23] MEDS ORDERED: LABETALOL HCL 100 MG TABLET (FP) ONE (20:04)
[2018-12-23] MEDS ORDERED: hydrALAZINE HCL 25 MG TABLET (FP) ONE (20:04)
--- NOTE | 2018-12-23 21:04 | HP ---
Admitting History and Physical - Primary Care Physician PCP: Dr. Espana - Admission Chief Complaint: Nausea, Vomiting, Shaking History of Present Illness: 78 year old female with PMH of DM, HTN, Parkinson's Disease, Dementia, CHF, CKD , Diverticulosis arrived to ED for chills, nausea, jerking movements and weakness which all started today after two days of diarrhea. As per daughter patient had outpatient CT abdomen 1 week ago which showed fecal impaction, and 3 days ago miralax and saline enema was given. BM started Wednesday 6pm until 4 am. Daughter called PMD and arrived to ED for further evaluation. As per daughter no vomiting, however been nausea since 11 am this morning. Patient denies abdominal pain, urinary symptoms, fevers, chills, sob, chest pain , headaches, no recent antibiotic use. 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: Dementia, Peripheral Neuropathy, Parkinson's Cardiovascular: Yes: CHF, HTN, Hyperlipdemia Gastrointestinal: Yes: Diverticulosis Psych: Yes: Anxiety Musculoskeletal: Yes: Osteoarthritis Endocrine: Yes: Diabetes Mellitus - Past Surgical History Past Surgical History: Yes: Appendectomy, Cholecystectomy, - Smoking History Smoking history: Never smoked Have you smoked in the past 12 months: No Aproximately how many cigarettes per day: 0 - Alcohol/Substance Use Hx Alcohol Use: No - Social History 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 (also has CLOUD ENGINEER 6 hours x5 days and 5 hours x2 days) History of Recent Travel: No Home Medications - Allergies Allergies/Adverse Reactions: Allergies Allergy/AdvReac Type Severity Reaction Status Date / Time No Known Allergies Allergy Verified 12/23/18 17:14 - Home Medications Home Medications: Ambulatory Orders Aspirin [Adult Aspirin Regimen] 81 mg PO DAILY 09/23/18 Atorvastatin Ca [Lipitor] 20 mg PO HS 09/23/18 Bupropion HCl [Wellbutrin Xl -] 150 mg PO DAILY 09/23/18 Carbidopa/Levodopa 25/100 [Sinemet 25/100 -] 1 each PO TID 09/23/18 Docusate Sodium [Stool Softener] 100 mg PO HS 09/23/18 Donepezil HCl [Aricept -] 10 mg PO DAILY 09/23/18 Insulin Glargine,Hum.rec.anlog [Lantus] 14 unit SQ ACBK 09/23/18 Labetalol HCl 400 mg PO TID 09/23/18 Lipase/Protease/Amylase [Elaine Sweeney 36,000 Units Capsule] 1 each PO TID 09/23/18 Mirtazapine 30 mg PO HS 09/23/18 Nifedipine [Procardia Xl] 60 mg PO BID 09/23/18 Olmesartan Medoxomil [Benicar -] 40 mg PO DAILY 09/23/18 Pantoprazole Sodium [Protonix] 40 mg PO DAILY 09/23/18 traMADol HCL [Ultram -] 50 mg PO TID PRN 09/23/18 Furosemide [Lasix -] 80 mg PO BID@0600,1400 #60 tablet 09/30/18 Levothyroxine [Synthroid -] 25 mcg PO DAILY@0700 #30 tablet 09/30/18 Polyethylene Glycol 3350 [Miralax 119 gm Btl -] 17 gm PO DAILY bottle 09/30/18 Potassium Chloride [K-Dur -] 20 meq PO DAILY #30 tablet.er 09/30/18 Sennosides [Senna -] 2 tab PO HS PRN tablet 09/30/18 hydrALAZINE HCL [Apresoline -] 100 mg PO TID #90 tablet 09/30/18 Doxazosin Mesylate [Cardura -] 2 mg PO BID tablet 10/11/18 Family Medical History Family History: Denies Review of Systems - Review of Systems Constitutional: reports: Chills Eyes: reports: No Symptoms HENT: reports: No Symptoms Neck: reports: No Symptoms Cardiovascular: reports: No Symptoms Respiratory: reports: No Symptoms Gastrointestinal: reports: Diarrhea, Nausea Genitourinary: reports: No Symptoms Musculoskeletal: reports: Other (per daughter " shaking/ jerking movement") Integumentary: reports: No Symptoms Neurological: reports: No Symptoms Endocrine: reports: No Symptoms Hematology/Lymphatic: reports: No Symptoms Psychiatric: reports: No Symptoms Physical Examination Vital Signs: Vital Signs Temperature 98 F 12/23/18 16:50 Pulse Rate 65 12/23/18 20:13 Respiratory Rate 20 12/23/18 20:13 Blood Pressure 156/60 12/23/18 20:13 O2 Sat by Pulse Oximetry (%) 98 12/23/18 20:13 Constitutional: Yes: No Distress, Calm Eyes: Yes: Conjunctiva Clear, EOM Intact HENT: Yes: Atraumatic, Normocephalic Neck: Yes: Supple, Trachea Midline Cardiovascular: Yes: Regular Rate and Rhythm Respiratory: Yes: Regular, CTA Bilaterally Gastrointestinal: Yes: Normal Bowel Sounds, Soft Extremities: Yes: WNL Integumentary: Yes: WNL Neurological: Yes: WNL Labs: CBC, BMP 12/23/18 16:38 12/23/18 16:38 Imaging - Results Chest X-ray: Report Reviewed (No acute changes) Cat Scan: Report Reviewed (CT head: no acute pathology, chronic ischemic changes ) Problem List - Problems (1) JASPER (acute kidney injury) Code(s): N17.9 - ACUTE KIDNEY FAILURE, UNSPECIFIED (2) Nausea Code(s): R11.0 - NAUSEA (3) Jerky body movements Code(s): R25.8 - OTHER ABNORMAL INVOLUNTARY MOVEMENTS (4) GERD (gastroesophageal reflux disease) Code(s): K21.9 - GASTRO-ESOPHAGEAL REFLUX DISEASE WITHOUT ESOPHAGITIS (5) CHF (congestive heart failure) Code(s): I50.9 - HEART FAILURE, UNSPECIFIED Qualifiers: (6) Constipation Code(s): K59.00 - CONSTIPATION, UNSPECIFIED (7) Dementia Code(s): F03.90 - UNSPECIFIED DEMENTIA WITHOUT BEHAVIORAL DISTURBANCE (8) Diabetes Code(s): E11.9 - TYPE 2 DIABETES MELLITUS WITHOUT COMPLICATIONS (9) Diverticulosis Code(s): K57.90 - DVRTCLOS OF INTEST, PART UNSP, W/O PERF OR ABSCESS W/O BLEED (10) HTN (hypertension) Code(s): I10 - ESSENTIAL (PRIMARY) HYPERTENSION (11) Hypothyroidism Code(s): E03.9 - HYPOTHYROIDISM, UNSPECIFIED (12) Parkinson disease Code(s): G20 - PARKINSON'S DISEASE (13) Depression Code(s): F32.9 - MAJOR DEPRESSIVE DISORDER, SINGLE EPISODE, UNSPECIFIED (14) HLD (hyperlipidemia) Code(s): E78.5 - HYPERLIPIDEMIA, UNSPECIFIED Assessment/Plan 78 year old female with PMH of DM, HTN, Parkinson's Disease, Dementia, CHF, CKD , Diverticulosis arrived to ED for chills, nausea, jerking movements and weakness which all started today after two days of diarrhea due to being tx for fecal impaction (per CT image) #JASPER Nausea/ jerking/shaking movement likely ? from dehydration vs Parkinson's tremors - EKG: NSR @ 62 bpm, no s/t changes - CT Head- no acute pathology, chronic ischemic changes noted - CXR: no fluid overload or infiltrate In ED given zofran and IVF with relief in symptoms, per daughter tolerated PO intake without N/V - will give 1 L NS - repeat BMP in AM - Zofran q 6 hours PRN #HTN/HLD/CHF # Hypokalemia -Atorvastatin Ca 20 mg PO HS - Labetalol HCl 400 mg PO TID - Nifedipine 60 mg PO BID - hydrALAZINE HCL 100 mg PO TID - Furosemide 80 mg PO BID - Olmesartan Medoxomil 40 mg PO DAILY - Doxazosin Mesylate 2 mg PO BID - continue with kcl 20 mEq daily - monitor BP closely if less than 90/60 hold medication # DM - monitor FSBS - coverage with Novolog sliding scale - continue with lantus 14 units #Diverticulosis #GERD - Lipase/Protease/Amylase 1 each PO TID - Pantoprazole Sodium 40 mg PO DAILY # Constipation hold laxiatives for now, monitor if needed restart miralax # Dementia # Depression -Bupropion HCl 150 mg PO DAILY -Carbidopa/Levodopa 25/100 1 each PO TID - Donepezil HCl 10 mg PO DAILY - Mirtazapine 30 mg PO HS # Hypothyroidism - Levothyroxine 25 mcg PO DAILY Visit type - Emergency Visit Emergency Visit: Yes ED Registration Date: 12/23/18 Care time: The patient presented to the Emergency Department on the above date and was hospitalized for further evaluation of their emergent condition. - New Patient This patient is new to me today: Yes Date on this admission: 12/23/18 - Critical Care Critical Care patient: No
[2018-12-23 21:30] LABS: EPI CELLS 0.2 /HPF (0-5/HPF); HYALINE CASTS 3 /lpf (0-8); PH,URINE 5.5 (5.0-8.0); URINE APPEARANCE CLEAR; URINE BACTERIA 1829.4 /hpf (NEGATIVE); URINE BILIRUBIN NEGATIVE (NEGATIVE); URINE COLOR YELLOW; URINE GLUCOSE (UA) NEGATIVE (NEGATIVE); URINE KETONE NEGATIVE (NEGATIVE); URINE LEUK ESTERASE 3+ (NEGATIVE); URINE NITRITE NEGATIVE (NEGATIVE); URINE PROTEIN NEGATIVE (NEGATIVE); URINE RBC 1 /hpf (0-4); URINE UROBILINOGEN 0.2 mg/dL (0.2-1.0); URINE WBC 59 /hpf (0-5)
[2018-12-23] MEDS ORDERED: traMADol HCL 50 MG TABLET PO PRN (21:35)
[2018-12-23] MEDS ORDERED: SODIUM CHLORIDE 1,000 ML IV SCH (21:45)
[2018-12-23] MEDS ORDERED: INSULIN (LEVEMIR) 100 UNITS/ML UNITS SQ SCH (22:00)
[2018-12-23] MEDS: LABETALOL HCL 200 MG TABLET (FP) PO SCH (22:55)
[2018-12-23] MEDS: hydrALAZINE HCL 50 MG TABLET (FP) PO SCH (22:56)
[2018-12-23] MEDS: HEPARIN NA (PORCINE) 5,000 UNITS/ML 1ML VIAL SQ SCH (22:58)
[2018-12-23] MEDS: DOXAZOSIN MESYLATE 2 MG TABLET (FP) PO SCH (22:59)
[2018-12-23] MEDS: MIRTAZAPINE 30 MG TABLET (FP) PO SCH (23:00)
[2018-12-23] MEDS: NIFEdipine E.R 60 MG TABLET (UD) PO SCH (23:00)
[2018-12-23] MEDS: ATORVASTATIN CA 20 MG TABLET (FP) PO SCH (23:00)
[2018-12-23] MEDS: CARBIDOPA/LEVODOPA 25/100 TABLET (FP) PO SCH (23:01)
[2018-12-24] MEDS: ONDANSETRON 4 MG/2 ML VIAL IVPUSH PRN ×2 (00:09→09:34)
[2018-12-24] MEDS ORDERED: DEXTROSE 50%-WATER - 25 GM/50 ML VIAL IVPUSH ONE (05:39)
[2018-12-24] MEDS ORDERED: DEXTROSE 50%-WATER 25 GM/50 ML DISP.SYRIN ONE (05:42)
[2018-12-24] MEDS ORDERED: FUROSEMIDE 40 MG TABLET (FP) PO SCH (06:00)
[2018-12-24] MEDS: CARBIDOPA/LEVODOPA 25/100 TABLET (FP) PO SCH ×3 (06:12→22:53)
[2018-12-24] MEDS: hydrALAZINE HCL 50 MG TABLET (FP) PO SCH ×3 (06:13→22:53)
[2018-12-24] MEDS: INSULIN SLIDING SCALE (NOVOLOG) 1 VIAL SQ SCH ×3 (06:15→17:06)
[2018-12-24] MEDS: LEVOTHYROXINE NA 25 MCG TABLET (FP) PO SCH (06:15)
[2018-12-24] MEDS: LABETALOL HCL 200 MG TABLET (FP) PO SCH ×3 (06:15→22:52)
[2018-12-24 08:23] LABS: BLOOD UREA NITROGEN 29.7 mg/dL (7-18); CALCIUM 8.8 mg/dL (8.5-10.1); CREATININE 1.5 mg/dL (0.55-1.3); POTASSIUM 3.3 mmol/L (3.5-5.1)
--- NOTE | 2018-12-24 08:55 | PN ---
Progress Note, Physician Chief Complaint: Nausea/Vomiting History of Present Illness: NAD ate this am, felt nausea post meal states her last BM was a week ago - Current Medication List Current Medications: Active Medications Atorvastatin Calcium (Lipitor -) 20 mg PO HS [facility] Last Admin: 12/23/18 23:00 Dose: 20 mg Bupropion HCl (Wellbutrin Xl -) 150 mg PO DAILY [facility] Carbidopa/Levodopa (Sinemet 25/100 -) 1 each PO TID [facility] Last Admin: 12/24/18 06:12 Dose: 1 each Donepezil HCl (Aricept -) 10 mg PO DAILY [facility] Doxazosin Mesylate (Cardura -) 2 mg PO BID [facility] Last Admin: 12/23/18 22:59 Dose: 2 mg Furosemide (Lasix -) 80 mg PO BID@0600,1400 [facility] Last Admin: 12/24/18 06:12 Dose: 80 mg Heparin Sodium (Porcine) (Heparin -) 5,000 unit SQ BID [facility] Last Admin: 12/23/18 22:58 Dose: 5,000 unit Hydralazine HCl (Apresoline -) 100 mg PO TID [facility] Last Admin: 12/24/18 06:13 Dose: 100 mg Sodium Chloride (Normal Saline -) 1,000 mls @ 50 mls/hr IV ASDIR [facility] Stop: 12/24/18 21:39 Last Admin: 12/23/18 22:49 Dose: 50 mls/hr Insulin Aspart (Novolog Vial Sliding Scale -) 1 vial SQ TIDAC [facility]; Protocol Last Admin: 12/24/18 06:15 Dose: Not Given Insulin Detemir (Levemir Vial) 8 units SQ [facility] Labetalol HCl (Normodyne -) 400 mg PO TID [facility] Last Admin: 12/24/18 06:15 Dose: 400 mg Levothyroxine Sodium (Synthroid -) 25 mcg PO DAILY@0700 [facility] Last Admin: 12/24/18 06:15 Dose: 25 mcg Mirtazapine (Remeron -) 30 mg PO [facility] Last Admin: 12/23/18 23:00 Dose: 30 mg Nifedipine (Procardia Xl -) 60 mg PO BID [facility] Last Admin: 12/23/18 23:00 Dose: 60 mg Ondansetron HCl (Zofran Injection) 4 mg IVPUSH Q6H PRN PRN Reason: NAUSEA Stop: 12/27/18 23:59 Last Admin: 12/24/18 00:09 Dose: 4 mg Pancrelipase (Creon Dr 36,000 Units Capsule) 1 cap PO TIDCM [facility] Pantoprazole Sodium (Protonix -) 40 mg PO DAILY [facility] Tramadol HCl (Ultram -) 50 mg PO Q8H PRN PRN Reason: PAIN Valsartan (Diovan -) 320 mg PO DAILY [facility] - Objective Vital Signs: Vital Signs Temperature 97.6 F 12/24/18 05:00 Pulse Rate 61 12/24/18 05:00 Respiratory Rate 18 12/24/18 05:00 Blood Pressure 151/49 L 12/24/18 05:00 O2 Sat by Pulse Oximetry (%) 100 12/23/18 21:30 Constitutional: Yes: No Distress, Calm, Cachectic Cardiovascular: Yes: Regular Rate and Rhythm Respiratory: Yes: Regular Gastrointestinal: Yes: Normal Bowel Sounds, Soft Genitourinary: Yes: Incontinence Musculoskeletal: Yes: Muscle Weakness Extremities: Yes: WNL Edema: No Peripheral Pulses WNL: Yes Neurological: Yes: Alert, Oriented Psychiatric: Yes: Alert, Oriented Labs: CBC, BMP 12/23/18 16:38 12/24/18 07:30 Problem List - Problems (1) Nausea Assessment/Plan: -Zofran PRN -KUB stat -GI consult Problems reviewed: Yes Code(s): R11.0 - NAUSEA (2) Vomiting Assessment/Plan: -No vomiting today Problems reviewed: Yes Code(s): R11.10 - VOMITING, UNSPECIFIED Qualifiers: Vomiting type: unspecified Vomiting Intractability: non-intractable Nausea presence: with nausea Qualified Code(s): R11.2 - Nausea with vomiting, unspecified (3) CHF (congestive heart failure) Assessment/Plan: -On furosemide 80 mg po bid Problems reviewed: Yes Code(s): I50.9 - HEART FAILURE, UNSPECIFIED Qualifiers: (4) CKD (chronic kidney disease) Assessment/Plan: -Cr at baseline -monitor trend Problems reviewed: Yes Code(s): N18.9 - CHRONIC KIDNEY DISEASE, UNSPECIFIED (5) Diabetes Assessment/Plan: -monitor BGM TID AC -coverage with Novolog sliding scale -continue with levemir 8 units -Diabetic low sodium diet Problems reviewed: Yes Code(s): E11.9 - TYPE 2 DIABETES MELLITUS WITHOUT COMPLICATIONS (6) Hypothyroidism Assessment/Plan: -Recheck thyroid profile Problems reviewed: Yes Code(s): E03.9 - HYPOTHYROIDISM, UNSPECIFIED Assessment/Plan see problem list
[2018-12-24] MEDS: LIPASE/PROTEASE/AMYLASE 36,000 UNIT CAPSULE PO SCH ×3 (08:56→17:06)
[2018-12-24] MEDS: DOXAZOSIN MESYLATE 2 MG TABLET (FP) PO SCH ×2 (09:07→22:53)
[2018-12-24] MEDS: DONEPEZIL HCL 10 MG TABLET (FP) PO SCH (09:07)
[2018-12-24] MEDS: VALSARTAN 160 MG TABLET (UD) PO SCH (09:08)
[2018-12-24] MEDS: HEPARIN NA (PORCINE) 5,000 UNITS/ML 1ML VIAL SQ SCH ×2 (09:08→22:53)
[2018-12-24] MEDS: POTASSIUM CHLORIDE TABS 20 MEQ TABLET.ER (FP) PO SCH (09:09)
[2018-12-24] MEDS: NIFEdipine E.R 60 MG TABLET (UD) PO SCH ×2 (09:10→22:53)
[2018-12-24] MEDS: PANTOPRAZOLE 40 MG TABLET (FP) PO SCH (09:10)
--- NOTE | 2018-12-24 09:57 | EKG ---
Test Reason : Blood Pressure : / mmHG Vent. Rate : 062 BPM Atrial Rate : 062 BPM P-R Int : 188 ms QRS Dur : 120 ms QT Int : 442 ms P-R-T Axes : 038 -44 036 degrees QTc Int : 448 ms POOR DATA QUALITY, INTERPRETATION MAY BE ADVERSELY AFFECTED NORMAL SINUS RHYTHM LEFT AXIS DEVIATION NON-SPECIFIC INTRA-VENTRICULAR CONDUCTION DELAY ABNORMAL ECG WHEN COMPARED WITH ECG OF 02-OCT-2018 11:02, NO SIGNIFICANT CHANGE WAS FOUND Confirmed by BRANDIN MOYA MD ([id number]) on 12/24/2018 9:56:27 AM Referred By: Confirmed By:BRANDIN MOYA MD
[2018-12-24] MEDS ORDERED: POTASSIUM CHLORIDE TABS 20 MEQ TABLET.ER (FP) PO SCH (10:00)
--- NOTE | 2018-12-24 10:40 | CON.NEURO ---
Consult Consult Specialty:: Ellis Referred by:: PCP Reason for Consultation:: Tremors - History of Present Illness History of Present Illness: 78 years old woman well known to me last seen 04/2017 with PMH CAD ANxiety Ch LBP HTN Constipation High Chol DM patient was admitted to the med surg floor with cc of weight loss and poor appetite patient was diagnosed with Parkinson and on dopa treatment No hallucinations In the hospital patient with poor appetite lack of sleep and feeling down Patient is poor historian in reference to any progress with dopa treatment patient lost 40 Ibs over the past 6 weeks Patient was noted by the family to have short term memory problem No recent travel - 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: Dementia, Peripheral Neuropathy, Parkinson's Cardio/Vascular: Yes: CHF, HTN, Hyperlipdemia Gastrointestinal: Yes: Diverticulosis Psych: Yes: Anxiety Musculoskeletal: Yes: Osteoarthritis Endocrine: Yes: Diabetes Mellitus - Past Surgical History Past Surgical History: Yes: Appendectomy, Cholecystectomy, - Alcohol/Substance Use Hx Alcohol Use: No - Smoking History Smoking history: Never smoked Have you smoked in the past 12 months: No Aproximately how many cigarettes per day: 0 - Social History Usual Living Arrangement: With Significant Other (with daughter in apartment without stairs, ambulated with SC) 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 (also has INSTRUCTIONAL CONSULTANT 6 hours x5 days and 5 hours x2 days) History of Recent Travel: No Home Medications - Allergies Allergies/Adverse Reactions: Allergies Allergy/AdvReac Type Severity Reaction Status Date / Time No Known Allergies Allergy Verified 12/23/18 17:14 - Home Medications Home Medications: Ambulatory Orders Aspirin [Adult Aspirin Regimen] 81 mg PO DAILY 09/23/18 Atorvastatin Ca [Lipitor] 20 mg PO HS 09/23/18 Bupropion HCl [Wellbutrin Xl -] 150 mg PO DAILY 09/23/18 Carbidopa/Levodopa 25/100 [Sinemet 25/100 -] 1 each PO TID 09/23/18 Docusate Sodium [Stool Softener] 100 mg PO HS 09/23/18 Donepezil HCl [Aricept -] 10 mg PO DAILY 09/23/18 Insulin Glargine,Hum.rec.anlog [Lantus] 14 unit SQ [facility] 09/23/18 Labetalol HCl 400 mg PO TID 09/23/18 Lipase/Protease/Amylase [Elaine Sweeney 36,000 Units Capsule] 1 each PO TID 09/23/18 Mirtazapine 30 mg PO HS 09/23/18 Nifedipine [Procardia Xl] 60 mg PO BID 09/23/18 Olmesartan Medoxomil [Benicar -] 40 mg PO DAILY 09/23/18 Pantoprazole Sodium [Protonix] 40 mg PO DAILY 09/23/18 traMADol HCL [Ultram -] 50 mg PO TID PRN 09/23/18 Furosemide [Lasix -] 80 mg PO BID@0600,1400 #60 tablet 09/30/18 Levothyroxine [Synthroid -] 25 mcg PO DAILY@0700 #30 tablet 09/30/18 Polyethylene Glycol 3350 [Miralax 119 gm Btl -] 17 gm PO DAILY bottle 09/30/18 Potassium Chloride [K-Dur -] 20 meq PO DAILY #30 tablet.er 09/30/18 Sennosides [Senna -] 2 tab PO HS PRN tablet 09/30/18 hydrALAZINE HCL [Apresoline -] 100 mg PO TID #90 tablet 09/30/18 Doxazosin Mesylate [Cardura -] 2 mg PO BID tablet 10/11/18 Family Medical History Family History: Unremarkable Review of Systems - Review of Systems Constitutional: reports: Loss of Appetite, Malaise, Unintentional Wgt. Loss, Weakness Neurological: reports: Incoordination, Numbness, Parasthesia, Unsteady Gait, Weakness Physical Exam-Neuro Vital Signs: Vital Signs Temperature 97.6 F 12/24/18 05:00 Pulse Rate 61 12/24/18 05:00 Respiratory Rate 18 12/24/18 05:00 Blood Pressure 151/49 L 12/24/18 05:00 O2 Sat by Pulse Oximetry (%) 100 12/23/18 21:30 Constitutional: Yes: Anxious Neck: Yes: Supple Labs: CBC, BMP 12/23/18 16:38 12/24/18 07:30 - Neuro Exam Level Of Consciousness: Yes: Oriented to Person, Oriented to Place Eyes: Yes: PERRLA Speech: WNL Dominant Hand: Right Mini Mental Exam: 24 Cranial Nerves II-XII Intact: Yes Gag: Present DTR's: 1+ Left Bicep, 1+ Right Bicep, 1+ Left Tricep, 1+ Right Tricep Response to light touch: Abnormal Response to pain prick: Normal Response to temperature: Normal Response to vibration: Abnormal Movement Disorders: Other (no tremors no coghweeling no meyerson sign ) Motor Strength: 05/24: Left Arm, Right Arm, Left Leg, Right Leg Gait: Deferred Imaging - Results Cat Scan: Image Reviewed Problem List - Problems (1) Jerky body movements Assessment/Plan: On exam patient did not exhibit any jerky movements Spoke to daughter Linda: No seizure activity Mild Cognitive Impairment Anxiety Chronic Low back pain 1. Neuro checks 2. Trial Carbidopa twice daily only 3. Trial of Aricept 5 mg only 4. Fall precautions 5. IV fluid 6. Daily Chemistries due to high Cr Thank you Michelle Corral MD Code(s): R25.8 - OTHER ABNORMAL INVOLUNTARY MOVEMENTS
[2018-12-24] MEDS: FUROSEMIDE 40 MG TABLET (FP) PO SCH (15:09)
[2018-12-24] MEDS ORDERED: PT OWN MED DRAWER 7, Y5N ONE ×2 (20:11→22:51)
[2018-12-24] MEDS: ATORVASTATIN CA 20 MG TABLET (FP) PO SCH (22:53)
[2018-12-24] MEDS: MIRTAZAPINE 30 MG TABLET (FP) PO SCH (22:53)
[2018-12-24] MEDS: INSULIN (LEVEMIR) 100 UNITS/ML UNITS SQ SCH (22:54)
[2018-12-24] MEDS: POLYETHYLENE GLYCOL 3350 119 GM BTL PO SCH (22:55)
[2018-12-25] MEDS: INSULIN SLIDING SCALE (NOVOLOG) 1 VIAL SQ SCH ×3 (06:30→17:11)
[2018-12-25] MEDS: LABETALOL HCL 200 MG TABLET (FP) PO SCH ×3 (06:33→22:35)
[2018-12-25] MEDS: CARBIDOPA/LEVODOPA 25/100 TABLET (FP) PO SCH ×3 (06:33→22:38)
[2018-12-25] MEDS: hydrALAZINE HCL 50 MG TABLET (FP) PO SCH ×3 (06:33→22:33)
[2018-12-25] MEDS: FUROSEMIDE 40 MG TABLET (FP) PO SCH ×2 (06:34→16:03)
[2018-12-25] MEDS: LEVOTHYROXINE NA 25 MCG TABLET (FP) PO SCH (06:34)
[2018-12-25] MEDS ORDERED: DEXTROSE 50%-WATER 25 GM/50 ML DISP.SYRIN IVPUSH ONE (06:46)
[2018-12-25] MEDS ORDERED: DEXTROSE 50%-WATER 25 GM/50 ML DISP.SYRIN ONE (06:48)
[2018-12-25 08:16] LABS: BASO % 0.6 % (0-2.0); EOS % 4.5 % (0-4.5); HEMATOCRIT 29.6 % (32.4-45.2); HEMOGLOBIN 10.2 GM/dL (10.7-15.3); MCH 30.1 pg (25.7-33.7); MCHC 34.4 g/dl (32.0-36.0); MEAN CELL VOLUME 87.5 fl (80-96); MEAN PLT VOLUME 8.1 fl (7.5-11.1); NEUT % 67.9 % (42.8-82.8); PLATELET COUNT 318 K/MM3 (134-434); RBC 3.39 M/mm3 (3.60-5.2); RDW 14.5 % (11.6-15.6); WHITE BLOOD COUNT 6.5 K/mm3 (4.0-10.0)
[2018-12-25 08:45] LABS: ALBUMIN 2.7 g/dl (3.4-5.0); ALK PHOS 62 U/L (45-117); ANION GAP 7 MMOL/L (8-16); BILIRUBIN,TOTAL 0.5 mg/dL (0.2-1); BLOOD UREA NITROGEN 23.7 mg/dL (7-18); CALCIUM 8.6 mg/dL (8.5-10.1); CHLORIDE 102 mmol/L (98-107); CO2 31 mmol/L (21-32); CREATININE 1.4 mg/dL (0.55-1.3); GLUCOSE,RANDOM 215 mg/dL (74-106); POTASSIUM 3.1 mmol/L (3.5-5.1); SGOT/AST 12 U/L (15-37); SGPT/ALT < 6 U/L (13-61); SODIUM 141 mmol/L (136-145); TOT PROT 5.6 g/dl (6.4-8.2)
[2018-12-25] MEDS: HEPARIN NA (PORCINE) 5,000 UNITS/ML 1ML VIAL SQ SCH ×2 (10:05→22:32)
[2018-12-25] MEDS: VALSARTAN 160 MG TABLET (UD) PO SCH (10:06)
[2018-12-25] MEDS: POLYETHYLENE GLYCOL 3350 119 GM BTL PO SCH ×3 (10:06→22:47)
[2018-12-25] MEDS: PANTOPRAZOLE 40 MG TABLET (FP) PO SCH (10:06)
[2018-12-25] MEDS: POTASSIUM CHLORIDE TABS 20 MEQ TABLET.ER (FP) PO SCH ×2 (10:06→14:31)
[2018-12-25] MEDS: NIFEdipine E.R 60 MG TABLET (UD) PO SCH ×3 (10:06→22:40)
[2018-12-25] MEDS: DONEPEZIL HCL 10 MG TABLET (FP) PO SCH (10:06)
[2018-12-25] MEDS: LIPASE/PROTEASE/AMYLASE 36,000 UNIT CAPSULE PO SCH ×3 (10:07→18:14)
[2018-12-25] MEDS: DOXAZOSIN MESYLATE 2 MG TABLET (FP) PO SCH ×3 (10:07→22:32)
[2018-12-25] MEDS ORDERED: POTASSIUM CHLORIDE TABS 10 MEQ TABLET.ER (FP) PO ONE (11:35)
--- NOTE | 2018-12-25 11:37 | PN ---
Progress Note, Physician Chief Complaint: Nausea/Vomiting History of Present Illness: NAD ate this am, felt nausea post meal states her last BM was a week ago KUB showed fecal retention Miralax given last evening Had BM x 2 overnight and this AM Wants to go home - Current Medication List Current Medications: Active Medications Atorvastatin Calcium (Lipitor -) 20 mg PO HS [facility] Last Admin: 12/24/18 22:53 Dose: 20 mg Bupropion HCl (Wellbutrin Xl -) 150 mg PO DAILY [facility] Last Admin: 12/25/18 10:06 Dose: 150 mg Carbidopa/Levodopa (Sinemet 25/100 -) 1 each PO TID [facility] Last Admin: 12/25/18 06:33 Dose: 1 each Donepezil HCl (Aricept -) 10 mg PO DAILY [facility] Last Admin: 12/25/18 10:06 Dose: 10 mg Doxazosin Mesylate (Cardura -) 2 mg PO BID [facility] Last Admin: 12/25/18 10:07 Dose: 2 mg Furosemide (Lasix -) 40 mg PO BID@0600,1400 [facility] Last Admin: 12/25/18 06:34 Dose: 40 mg Heparin Sodium (Porcine) (Heparin -) 5,000 unit SQ BID [facility] Last Admin: 12/25/18 10:05 Dose: 5,000 unit Hydralazine HCl (Apresoline -) 100 mg PO TID [facility] Last Admin: 12/25/18 06:33 Dose: 100 mg Insulin Aspart (Novolog Vial Sliding Scale -) 1 vial SQ TIDAC [facility]; Protocol Last Admin: 12/25/18 06:30 Dose: Not Given Insulin Detemir (Levemir Vial) 8 units SQ [facility] Last Admin: 12/24/18 22:54 Dose: 8 units Labetalol HCl (Normodyne -) 400 mg PO TID [facility] Last Admin: 12/25/18 06:33 Dose: 400 mg Levothyroxine Sodium (Synthroid -) 25 mcg PO DAILY@0700 [facility] Last Admin: 12/25/18 06:34 Dose: 25 mcg Mirtazapine (Remeron -) 30 mg PO [facility] Last Admin: 12/24/18 22:53 Dose: 30 mg Nifedipine (Procardia Xl -) 60 mg PO BID [facility] Last Admin: 12/25/18 10:06 Dose: 60 mg Ondansetron HCl (Zofran Injection) 4 mg IVPUSH Q6H PRN PRN Reason: NAUSEA Stop: 12/27/18 23:59 Last Admin: 12/24/18 09:34 Dose: 4 mg Pancrelipase (Creon Dr 36,000 Units Capsule) 1 cap PO TIDCM [facility] Last Admin: 12/25/18 10:07 Dose: 1 cap Pantoprazole Sodium (Protonix -) 40 mg PO DAILY [facility] Last Admin: 12/25/18 10:06 Dose: 40 mg Polyethylene Glycol (Miralax (For Daily Use) -) 17 gm PO BID [facility] Last Admin: 12/25/18 10:06 Dose: Not Given Potassium Chloride (K-Dur -) 40 meq PO DAILY [facility] Last Admin: 12/25/18 10:06 Dose: 40 meq Potassium Chloride (K-Dur -) 40 meq PO ONCE ONE Stop: 12/25/18 11:36 Tramadol HCl (Ultram -) 50 mg PO Q8H PRN PRN Reason: PAIN Valsartan (Diovan -) 320 mg PO DAILY [facility] Last Admin: 12/25/18 10:06 Dose: 320 mg - Objective Vital Signs: Vital Signs Temperature 99.0 F 12/25/18 02:00 Pulse Rate 56 L 12/25/18 05:50 Respiratory Rate 18 12/25/18 05:50 Blood Pressure 138/63 12/25/18 05:50 O2 Sat by Pulse Oximetry (%) 100 12/25/18 09:00 Constitutional: Yes: Well Nourished, No Distress, Calm Cardiovascular: Yes: Regular Rate and Rhythm Respiratory: Yes: Regular Gastrointestinal: Yes: Normal Bowel Sounds, Soft Genitourinary: Yes: Incontinence Musculoskeletal: Yes: Muscle Weakness Extremities: Yes: WNL Edema: No Peripheral Pulses WNL: Yes Neurological: Yes: Alert, Confusion Psychiatric: Yes: Alert Labs: CBC, BMP 12/25/18 07:25 12/25/18 07:25 Problem List - Problems (1) Nausea Assessment/Plan: -resolved -Likely 2/2 to stool impaction -miralax -Reglan PRN -KUB stat -GI consult Code(s): R11.0 - NAUSEA (2) Vomiting Assessment/Plan: -No vomiting today Code(s): R11.10 - VOMITING, UNSPECIFIED Qualifiers: Vomiting type: unspecified Vomiting Intractability: non-intractable Nausea presence: with nausea Qualified Code(s): R11.2 - Nausea with vomiting, unspecified (3) CHF (congestive heart failure) Assessment/Plan: -On furosemide 80 mg po bid---> decrease to Furosemide 40 mg po BID Code(s): I50.9 - HEART FAILURE, UNSPECIFIED Qualifiers: (4) CKD (chronic kidney disease) Assessment/Plan: -Cr at baseline -monitor trend Problems reviewed: Yes Code(s): N18.9 - CHRONIC KIDNEY DISEASE, UNSPECIFIED (5) Diabetes Assessment/Plan: -monitor BGM TID AC -coverage with Novolog sliding scale -continue with levemir 8 units -Diabetic low sodium diet Problems reviewed: Yes Code(s): E11.9 - TYPE 2 DIABETES MELLITUS WITHOUT COMPLICATIONS (6) Hypothyroidism Assessment/Plan: -Recheck thyroid profile Problems reviewed: Yes Code(s): E03.9 - HYPOTHYROIDISM, UNSPECIFIED (7) Hypokalemia Assessment/Plan: -Replenish with extra KCl 40 meq -Monitor CMP in AM Problems reviewed: Yes Code(s): E87.6 - HYPOKALEMIA Assessment/Plan see problem list
[2018-12-25] MEDS: METOCLOPRAMIDE HCL 10 MG TABLET (FP) PO SCH (18:14)
--- NOTE | 2018-12-25 18:19 | PN ---
Progress Note, Physician History of Present Illness: events noted Chart reviewed Alert awake Seen in bed Daughter not here Two BM yesterday Refused food and meds BP high - Current Medication List Current Medications: Active Medications Atorvastatin Calcium (Lipitor -) 20 mg PO [facility] Last Admin: 12/24/18 22:53 Dose: 20 mg Bupropion HCl (Wellbutrin Xl -) 150 mg PO DAILY [facility] Last Admin: 12/25/18 14:34 Dose: Not Given Carbidopa/Levodopa (Sinemet 25/100 -) 1 each PO TID [facility] Last Admin: 12/25/18 16:04 Dose: Not Given Donepezil HCl (Aricept -) 10 mg PO DAILY [facility] Last Admin: 12/25/18 10:06 Dose: 10 mg Doxazosin Mesylate (Cardura -) 2 mg PO BID [facility] Last Admin: 12/25/18 14:30 Dose: Not Given Furosemide (Lasix -) 40 mg PO BID@0600,1400 [facility] Last Admin: 12/25/18 16:03 Dose: Not Given Heparin Sodium (Porcine) (Heparin -) 5,000 unit SQ BID [facility] Last Admin: 12/25/18 10:05 Dose: 5,000 unit Hydralazine HCl (Apresoline -) 100 mg PO TID [facility] Last Admin: 12/25/18 14:24 Dose: 100 mg Insulin Aspart (Novolog Vial Sliding Scale -) 1 vial SQ TIDAC [facility]; Protocol Last Admin: 12/25/18 17:11 Dose: Not Given Insulin Detemir (Levemir Vial) 8 units SQ [facility] Last Admin: 12/24/18 22:54 Dose: 8 units Labetalol HCl (Normodyne -) 400 mg PO TID [facility] Last Admin: 12/25/18 14:23 Dose: 400 mg Levothyroxine Sodium (Synthroid -) 25 mcg PO DAILY@0700 [facility] Last Admin: 12/25/18 06:34 Dose: 25 mcg Metoclopramide HCl (Reglan -) 10 mg PO TIDAC [facility] Last Admin: 12/25/18 18:14 Dose: Not Given Mirtazapine (Remeron -) 30 mg PO [facility] Last Admin: 12/24/18 22:53 Dose: 30 mg Nifedipine (Procardia Xl -) 60 mg PO BID [facility] Last Admin: 12/25/18 14:31 Dose: Not Given Pancrelipase (Elaine Sweeney 36,000 Units Capsule) 1 cap PO TIDCM [facility] Last Admin: 12/25/18 18:14 Dose: Not Given Pantoprazole Sodium (Protonix -) 40 mg PO DAILY [facility] Last Admin: 12/25/18 10:06 Dose: 40 mg Polyethylene Glycol (Miralax (For Daily Use) -) 17 gm PO BID [facility] Last Admin: 12/25/18 10:06 Dose: Not Given Potassium Chloride (K-Dur -) 40 meq PO DAILY [facility] Last Admin: 12/24/18 09:09 Dose: 40 meq Tramadol HCl (Ultram -) 50 mg PO Q8H PRN PRN Reason: PAIN Valsartan (Diovan -) 320 mg PO DAILY [facility] Last Admin: 12/25/18 10:06 Dose: 320 mg - Objective Vital Signs: Vital Signs Temperature 179 F H 12/25/18 14:59 Pulse Rate 58 L 12/25/18 14:59 Respiratory Rate 20 12/25/18 14:59 Blood Pressure 179/74 H 12/25/18 14:59 O2 Sat by Pulse Oximetry (%) 100 12/25/18 09:00 Constitutional: Yes: Calm Eyes: Yes: WNL Neurological: Yes: Alert, Oriented, Babinski negative ...Motor Strength: WNL Labs: CBC, BMP 12/25/18 07:25 12/25/18 07:25 Problem List - Problems (1) Jerky body movements Assessment/Plan: No further reported shaking No seizure activity Dementia Nausea ?? source 1. Suggest Psych input 2. Meds mark BP via ImageB[employer] 3. Follow up with GI Patient will be seen by Dr Helton tomorrow Thank you Michelle Corral MD Code(s): R25.8 - OTHER ABNORMAL INVOLUNTARY MOVEMENTS
[2018-12-25] MEDS ORDERED: PT OWN MED DRAWER 7, Y5N ONE (18:22)
[2018-12-25] MEDS ORDERED: INSULIN (NOVOLOG) ASPART 100 UNITS/ML 10ML VIAL ONE (18:22)
[2018-12-25] MEDS: INSULIN (LEVEMIR) 100 UNITS/ML UNITS SQ SCH (22:32)
[2018-12-25] MEDS: ATORVASTATIN CA 20 MG TABLET (FP) PO SCH (22:33)
[2018-12-25] MEDS: MIRTAZAPINE 30 MG TABLET (FP) PO SCH (22:37)
[2018-12-26] MEDS: INSULIN SLIDING SCALE (NOVOLOG) 1 VIAL SQ SCH ×3 (06:56→16:48)
[2018-12-26] MEDS: hydrALAZINE HCL 50 MG TABLET (FP) PO SCH ×3 (06:58→14:21)
[2018-12-26] MEDS: LABETALOL HCL 200 MG TABLET (FP) PO SCH (06:58)
[2018-12-26] MEDS: FUROSEMIDE 40 MG TABLET (FP) PO SCH ×2 (06:58→14:27)
[2018-12-26] MEDS: CARBIDOPA/LEVODOPA 25/100 TABLET (FP) PO SCH ×2 (06:58→14:27)
[2018-12-26] MEDS: METOCLOPRAMIDE HCL 10 MG TABLET (FP) PO SCH (07:00)
[2018-12-26] MEDS: LEVOTHYROXINE NA 25 MCG TABLET (FP) PO SCH (07:01)
[2018-12-26 08:03] LABS: BLOOD UREA NITROGEN 27.3 mg/dL (7-18); CALCIUM 8.4 mg/dL (8.5-10.1); CREATININE 1.5 mg/dL (0.55-1.3); POTASSIUM 3.9 mmol/L (3.5-5.1)
--- NOTE | 2018-12-26 08:55 | CON.GI ---
Consult Consult Specialty:: GI Referred by:: Bernabe Brown NP Reason for Consultation:: nausea, vomiting - History of Present Illness History of Present Illness: Patient is a 78 y/o female with past medical history of DM, HT, Parkinson Disease, Dementia, CHF, CKD, Diverticulosis. Patient has been having nausea without vomiting since admission on 12/24/18. She states her nausea is related due to her not eating here in the hospital. Denies having episodes of nausea at home prior to admission. Patient denies abdominal pain, diarrhea, constipation, rectal bleeding, melena. She was eating breakfast this morning and was able to tolerate 60 percent of her bereakfast. She has a prolonged QT interval andpossibly avoid antiemetics ifr possible. 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's Cardio/Vascular: Yes: CHF, HTN, Hyperlipdemia Gastrointestinal: Yes: Diverticulosis Psych: Yes: Anxiety Musculoskeletal: Yes: Osteoarthritis Endocrine: Yes: Diabetes Mellitus - Past Surgical History Past Surgical History: Yes: Appendectomy, Cholecystectomy, - Alcohol/Substance Use Hx Alcohol Use: No - Smoking History Smoking history: Never smoked Have you smoked in the past 12 months: No Aproximately how many cigarettes per day: 0 - Social History Usual Living Arrangement: With Significant Other (with daughter in apartment without stairs, ambulated with SC) 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 (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 has 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 6 hours x5 days and 5 hours x2 days) History of Recent Travel: No Home Medications - Allergies Allergies/Adverse Reactions: Allergies Allergy/AdvReac Type Severity Reaction Status Date / Time No Known Allergies Allergy Verified 12/23/18 17:14 - Home Medications Home Medications: Ambulatory Orders Aspirin [Adult Aspirin Regimen] 81 mg PO DAILY 09/23/18 Atorvastatin Ca [Lipitor] 20 mg PO HS 09/23/18 Bupropion HCl [Wellbutrin Xl -] 150 mg PO DAILY 09/23/18 Carbidopa/Levodopa 25/100 [Sinemet 25/100 -] 1 each PO TID 09/23/18 Docusate Sodium [Stool Softener] 100 mg PO HS 09/23/18 Donepezil HCl [Aricept -] 10 mg PO DAILY 09/23/18 Insulin Glargine,Hum.rec.anlog [Lantus] 14 unit SQ [facility] 09/23/18 Labetalol HCl 400 mg PO TID 09/23/18 Lipase/Protease/Amylase [Elaine Sweeney 36,000 Units Capsule] 1 each PO TID 09/23/18 Mirtazapine 30 mg PO HS 09/23/18 Nifedipine [Procardia Xl] 60 mg PO BID 09/23/18 Olmesartan Medoxomil [Benicar -] 40 mg PO DAILY 09/23/18 Pantoprazole Sodium [Protonix] 40 mg PO DAILY 09/23/18 traMADol HCL [Ultram -] 50 mg PO TID PRN 09/23/18 Furosemide [Lasix -] 80 mg PO BID@0600,1400 #60 tablet 09/30/18 Levothyroxine [Synthroid -] 25 mcg PO DAILY@0700 #30 tablet 09/30/18 Polyethylene Glycol 3350 [Miralax 119 gm Btl -] 17 gm PO DAILY bottle 09/30/18 Potassium Chloride [K-Dur -] 20 meq PO DAILY #30 tablet.er 09/30/18 Sennosides [Senna -] 2 tab PO HS PRN tablet 09/30/18 hydrALAZINE HCL [Apresoline -] 100 mg PO TID #90 tablet 09/30/18 Doxazosin Mesylate [Cardura -] 2 mg PO BID tablet 10/11/18 Review of Systems - Review of Systems Constitutional: reports: No Symptoms Eyes: reports: No Symptoms HENT: reports: No Symptoms Neck: reports: No Symptoms Cardiovascular: reports: No Symptoms Respiratory: reports: No Symptoms Gastrointestinal: reports: Nausea Genitourinary: reports: No Symptoms Breasts: reports: No Symptoms Reported Musculoskeletal: reports: No Symptoms Integumentary: reports: No Symptoms Neurological: reports: Tremors Endocrine: reports: No Symptoms Hematology/Lymphatic: reports: No Symptoms Psychiatric: reports: No Symptoms Physical Exam-GI Vital Signs: Vital Signs Temperature 97.5 F L 12/26/18 06:00 Pulse Rate 62 12/26/18 06:00 Respiratory Rate 20 12/26/18 06:00 Blood Pressure 141/47 L 12/26/18 06:00 O2 Sat by Pulse Oximetry (%) 100 12/25/18 21:00 Constitutional: Yes: No Distress, Calm Eyes: Yes: Conjunctiva Clear HENT: Yes: Atraumatic Cardiovascular: Yes: Regular Rate and Rhythm Respiratory: Yes: Regular, CTA Bilaterally Gastrointestinal Inspection: Yes: WNL. No: Ascites, Distention, Hernia, Scars, Other ...Auscultate: Yes: Normoactive Bowel Sounds. No: Hyperactive Bowel Sounds, Hypoactive Bowel Sounds, No Bowel Sounds, Other ...Palpate: Yes: Soft. No: Firm/Rigid, Guarding, Hepatomegaly, Mass, Pulsatile Mass, Splenomegaly, Tenderness, Tenderness, Epigastium, Tenderness, Rebound, Other ...Percussion: Yes: Tympanitic. No: Dullness, Fluid Wave, Other Neurological: Yes: Alert Psychiatric: Yes: Alert Labs: CBC, BMP 12/25/18 07:25 12/26/18 06:55 Hepatic Panel Total Bilirubin 0.5 mg/dL (0.2-1) 12/25/18 07:25 AST 12 U/L (15-37) L 12/25/18 07:25 ALT < 6 U/L (13-61) L 12/25/18 07:25 Alkaline Phosphatase 62 U/L (45-117) 12/25/18 07:25 Albumin 2.7 g/dl (3.4-5.0) L 12/25/18 07:25 Problem List - Problems (1) GERD (gastroesophageal reflux disease) Assessment/Plan: Famotidine 40mg bid Code(s): K21.9 - GASTRO-ESOPHAGEAL REFLUX DISEASE WITHOUT ESOPHAGITIS (2) Nausea Code(s): R11.0 - NAUSEA (3) Vomiting Assessment/Plan: avoid anti emetics because of prolonged Q-T interval tolerating diet as tghis time Code(s): R11.10 - VOMITING, UNSPECIFIED Qualifiers: Vomiting type: unspecified Vomiting Intractability: non-intractable Nausea presence: with nausea Qualified Code(s): R11.2 - Nausea with vomiting, unspecified
[2018-12-26] MEDS ORDERED: PT OWN MED DRAWER 7, Y5N ONE (09:10)
[2018-12-26] MEDS: LIPASE/PROTEASE/AMYLASE 36,000 UNIT CAPSULE PO SCH ×3 (09:18→17:42)
[2018-12-26] MEDS ORDERED: LABETALOL HCL 200 MG TABLET (FP) PO SCH (10:44)
--- NOTE | 2018-12-26 10:54 | PN ---
Progress Note (short form) - Note Progress Note: NEUROLOGY PROGRESS: Events reviewed and discussed at length with daughter Linda. Coverage note from Dr. Corral appreciated. Pt examined by me. This 78 yo LH women is known to me with HTN, HLD, DM, dementia, depression, GERD , CHF, hx Myoclonus, Migraines, RLS and Parkinson's Disease. On: atorvastatin, buproprion 150 mg, Sinemet CR 25/100 TID, donepezil 10 mg qAM , hydralazine, labetolol, mirtazapine, valsartan, pantoprazole, tramadol prn, insulins, metoclopramide, furosemide, levothyroxine. Last seen in consultation 09/27/2018, and pt was transferred to [facility] for 2 months for therapy. The daughter reports ongoing poor appetite, nausea, "weakness" and significant weight loss (140-> 98lb). Admitted after "whole body jerks" witnessed by daughter, however none present today. Notably off Depakote for hx of Myoclonus. Also with significant constipation, requiring use of enema. Pt unable to provide cogent history and somewhat irritated, requesting to return home. Head CT (reviewed): moderate diffuse cerebral atrophy with ex vacuo ventricular dilation. Chronic periventricular ischemic changes. EKG NSR, QCT .448 WBC= 5.7; H/H 11.3/33.2-> 10.2/29.6 MCV 87.2; TSH= 2.10; UA WBC= 59; UC + >100, 000 Ecoli/Kleb STEVENSON: Cor reg. Neck supple. NEURO: Awake, alert. Cooperative with exam. "Hospital" "[facility]" 2018. Trump. + glabella, palmomental, grasps CNII-CNXII: Blinks to threat. Full thorne. Swallowing H20 without difficulty but tongue appears somewhat atrophic, scalloped with possible fasciculations. Motor: No drift or rest tremor. Cogwheeling present with reinforcement R >L. Decreaed SELENE's. Strength normal. Reflexes normal except reduced KJS and absent AJ's. Plantars silent. Coordination: No FTN dystaxia but mislocalizes. Sensation: Reduced vibration in toes. Romberg + Gait: Flexed, sl shuffle. Takes 3-4 steps to correct retropulsion. Impression: Moderate B/L Cerebral dysfunction (OMS, c/w Alzheimer's Disease or PD) Extraapyramidal findings c/wParkinson's Disease Peripheral Neuropathy c/w diabetic polyneuropathy Worsened by Toxic-Metabolic Encephalopathy (UTI) Cannot exclude some tongue pathology to explain weight loss. Suggest: Rx for UTI and hydration Orthostatic BP's Bowel protocol for constipation Speech and swallowing eval. Continue donepezil 5 mg po QAM Hold Sinemet for now to see if appetite and GI symptoms improve. PT eval for gait training and safety with walker OOB to chair for meals. Thank you very much, Panchito Helton MD
[2018-12-26] MEDS ORDERED: DOXAZOSIN MESYLATE 2 MG TABLET (FP) PO SCH (11:00)
[2018-12-26] MEDS: POTASSIUM CHLORIDE TABS 20 MEQ TABLET.ER (FP) PO SCH (11:00)
[2018-12-26] MEDS ORDERED: VALSARTAN 160 MG TABLET (UD) PO SCH (11:00)
[2018-12-26] MEDS: DONEPEZIL HCL 10 MG TABLET (FP) PO SCH (11:00)
[2018-12-26] MEDS: PANTOPRAZOLE 40 MG TABLET (FP) PO SCH (11:00)
[2018-12-26] MEDS ORDERED: NIFEdipine E.R 60 MG TABLET (UD) PO SCH (11:00)
[2018-12-26] MEDS: HEPARIN NA (PORCINE) 5,000 UNITS/ML 1ML VIAL SQ SCH (11:06)
[2018-12-26] MEDS: NIFEdipine E.R 60 MG TABLET (UD) PO SCH (11:21)
[2018-12-26] MEDS: DOXAZOSIN MESYLATE 2 MG TABLET (FP) PO SCH (11:21)
[2018-12-26] MEDS: VALSARTAN 160 MG TABLET (UD) PO SCH (11:21)
[2018-12-26] MEDS: POLYETHYLENE GLYCOL 3350 119 GM BTL PO SCH (11:24)
--- NOTE | 2018-12-26 11:49 | CON.PSY ---
Psychiatry Consult Chief Complaint: 78 Year old female with a histiery of ? Major Depresswion, Parkinson Disease, Dementia being treatede by Dr. Helton seen for Psych eval for DEmentia. Patient repoprts not feeling well, [id number] is wrond bur denies any depression oec suicidal ideas. reports of Significant weight loss on wellbutrin 150mg po od and REmeron for DEpression. Symptoms: reports: Appetite Disturbance, Memory Impairment - Previous Psychiatric Treatment Outpatient: Less than 6 mos ago Inpatient: None - Previous Substance Abuse Treatment Outpatient: None Inpatient: None - Reason for Previous Treatment Reason for Previous Treatment: Major Depression - Current Medications Current Medications: Active Medications Atorvastatin Calcium (Lipitor -) 20 mg PO HS [facility] Last Admin: 12/25/18 22:33 Dose: 20 mg Bupropion HCl (Wellbutrin Xl -) 150 mg PO DAILY [facility] Last Admin: 12/26/18 11:00 Dose: 150 mg Carbidopa/Levodopa (Sinemet 25/100 -) 1 each PO TID [facility] Last Admin: 12/26/18 06:58 Dose: 1 each Donepezil HCl (Aricept -) 10 mg PO DAILY [facility] Last Admin: 12/26/18 11:00 Dose: 10 mg Doxazosin Mesylate (Cardura -) 2 mg PO BID [facility] Last Admin: 12/26/18 11:19 Dose: Not Given Furosemide (Lasix -) 40 mg PO BID@0600,1400 [facility] Last Admin: 12/26/18 06:58 Dose: 40 mg Heparin Sodium (Porcine) (Heparin -) 5,000 unit SQ BID [facility] Last Admin: 12/26/18 11:06 Dose: 5,000 unit Hydralazine HCl (Apresoline -) 50 mg PO TID [facility] Last Admin: 12/26/18 11:19 Dose: Not Given Insulin Aspart (Novolog Vial Sliding Scale -) [facility] Last Admin: 12/26/18 06:56 Dose: Not Given Insulin Detemir (Levemir Vial) 8 units SQ [facility] Last Admin: 12/25/18 22:32 Dose: 8 units Labetalol HCl (Normodyne -) 400 mg PO TID [facility] Levothyroxine Sodium (Synthroid -) 25 mcg PO DAILY@0700 [facility] Last Admin: 12/26/18 07:01 Dose: 25 mcg Mirtazapine (Remeron -) 30 mg PO HS [facility] Last Admin: 12/25/18 22:37 Dose: 30 mg Nifedipine (Procardia Xl -) 60 mg PO BID [facility] Last Admin: 12/26/18 11:19 Dose: Not Given Pancrelipase (Creon Dr 36,000 Units Capsule) 1 cap PO TIDCM [facility] Last Admin: 12/26/18 09:18 Dose: 1 cap Pantoprazole Sodium (Protonix -) 40 mg PO DAILY [facility] Last Admin: 12/26/18 11:00 Dose: 40 mg Polyethylene Glycol (Miralax (For Daily Use) -) 17 gm PO BID [facility] Last Admin: 12/26/18 11:24 Dose: Not Given Potassium Chloride (K-Dur -) 40 meq PO DAILY [facility] Last Admin: 12/26/18 11:00 Dose: 40 meq Tramadol HCl (Ultram -) 50 mg PO Q8H PRN PRN Reason: PAIN Valsartan (Diovan -) 320 mg PO DAILY [facility] Last Admin: 12/26/18 11:19 Dose: Not Given - Allergies Allergies: Allergies Allergy/AdvReac Type Severity Reaction Status Date / Time No Known Allergies Allergy Verified 12/23/18 17:14 - Current Living Status Usual Living Arrangement: Alone - Current Mental Status Evaluation Appearance: Well Groomed Attitude: Cooperative - Affect Affect: Constrictive Appropriateness: Appropriate to Content - Mood Mood: Anxious - Speech/Language Expressive: Coherent - Psychomotor Activity Psychomotor Activity: Normal - Thought Process Thought Process: Intact - Thought Content Hallucinations: Absent Delusions: Absent - Self Perception Self Perception: No Impairment - Cognition Attention: Alert Orientation: Time Memory, Immediate Recall: Intact Memory, Short Term: 3/3 Memory, Remote with Promptin/3 - Concentration Serial Sevens Intact: No Simple Calculations Intact: Yes - Abstraction Proverb Interpretation: Intact Judgement: Minimally Impaired - Insight Insight: Intact - Impulse Control Impulse Control: Good Control - Suicidal Ideation Suicidal Ideation: No - Homicidal Ideation Homicidal Ideation: No Assessment/Plan 1) will reduce Wellbutrin which cou8ld bec causing weighyt loss. 2) also consider Cultural issues when consdering somatic symptoms. Patient looks lot healthier than her History.
[2018-12-26] MEDS ORDERED: buPROPion HCL 100 MG TABLET PO SCH (12:00)
[2018-12-26] MEDS ORDERED: DONEPEZIL HCL 5 MG TABLET (FP) PO SCH (14:21)
--- NOTE | 2018-12-26 14:24 | DS ---
Physical Examination Vital Signs: Vital Signs Temperature 97.4 F L 12/26/18 10:00 Pulse Rate 56 L 12/26/18 11:11 Respiratory Rate 20 12/26/18 11:11 Blood Pressure 98/52 L 12/26/18 11:11 O2 Sat by Pulse Oximetry (%) 100 12/25/18 21:00 Constitutional: Yes: Calm Cardiovascular: Yes: Regular Rate and Rhythm, S1, S2 Respiratory: Yes: CTA Bilaterally Gastrointestinal: Yes: Normal Bowel Sounds, Soft Labs: CBC, BMP 12/25/18 07:25 12/26/18 06:55 Discharge Summary Problems reviewed: Yes Reason For Visit: JERKY BODY MOVEMENTS,WEAKENSS,NAUSEA,VOMITING Current Active Problems GERD (gastroesophageal reflux disease) (Acute) Jerky body movements (Acute) Nausea (Acute) Vomiting (Acute) Hospital Course: History of Present Illness: 78 year old female with PMH of DM, HTN, Parkinson's Disease, Dementia, CHF, CKD , Diverticulosis arrived to ED for chills, nausea, jerking movements and weakness which all started today after two days of diarrhea. As per daughter patient had outpatient CT abdomen 1 week ago which showed fecal impaction, and 3 days ago miralax and saline enema was given. BM started Wednesday 6pm until 4 am. Daughter called PMD and arrived to ED for further evaluation. As per daughter no vomiting, however been nausea since 11 am this morning. Patient denies abdominal pain, urinary symptoms, fevers, chills, sob, chest pain , headaches, no recent antibiotic use. seen by GI famotidine bid and then disimpacted got miralax had BM seen by neurology on sinemet tid and aricept 5mg Condition: Stable - Instructions Referrals: Ro Espana MD [Primary Care Provider] - - Home Medications Comprehensive Discharge Medication List: Ambulatory Orders Aspirin [Adult Aspirin Regimen] 81 mg PO DAILY 09/23/18 Atorvastatin Ca [Lipitor] 20 mg PO HS 09/23/18 Bupropion HCl [Wellbutrin Xl -] 150 mg PO DAILY 09/23/18 Carbidopa/Levodopa 25/100 [Sinemet 25/100 -] 1 each PO TID 09/23/18 Docusate Sodium [Stool Softener] 100 mg PO HS 09/23/18 Donepezil HCl [Aricept -] 10 mg PO DAILY 09/23/18 Insulin Glargine,Hum.rec.anlog [Lantus] 14 unit SQ ACBK 09/23/18 Labetalol HCl 400 mg PO TID 09/23/18 Lipase/Protease/Amylase [Elaine Sweeney 36,000 Units Capsule] 1 each PO TID 09/23/18 Mirtazapine 30 mg PO HS 09/23/18 Nifedipine [Procardia Xl] 60 mg PO BID 09/23/18 Olmesartan Medoxomil [Benicar -] 40 mg PO DAILY 09/23/18 Pantoprazole Sodium [Protonix] 40 mg PO DAILY 09/23/18 traMADol HCL [Ultram -] 50 mg PO TID PRN 09/23/18 Furosemide [Lasix -] 80 mg PO BID@0600,1400 #60 tablet 09/30/18 Levothyroxine [Synthroid -] 25 mcg PO DAILY@0700 #30 tablet 09/30/18 Polyethylene Glycol 3350 [Miralax 119 gm Btl -] 17 gm PO DAILY bottle 09/30/18 Potassium Chloride [K-Dur -] 20 meq PO DAILY #30 tablet.er 09/30/18 Sennosides [Senna -] 2 tab PO HS PRN tablet 09/30/18 hydrALAZINE HCL [Apresoline -] 100 mg PO TID #90 tablet 09/30/18 Doxazosin Mesylate [Cardura -] 2 mg PO BID tablet 10/11/18
--- NOTE | 2018-12-26 15:08 | CON.CARD ---
Consult Consult Specialty:: Cardiolgy Reason for Consultation:: Hypotension - History of Present Illness Chief Complaint: presently comfortable History of Present Illness: This is a 78 year old female with a PMH of DM, HTN, and Parkinsons. H/o diverticulosis and constipation. Was noted to have hypotension, BP was 88/42 mmHg. Current BP 128/50 mmHg. No cardiac symptoms. - Past Medical History [employer]: Yes: Dementia, Peripheral Neuropathy, Parkinson's Cardio/Vascular: Yes: CHF, HTN, Hyperlipdemia Gastrointestinal: Yes: Diverticulosis Psych: Yes: Anxiety Musculoskeletal: Yes: Osteoarthritis Endocrine: Yes: Diabetes Mellitus - Past Surgical History Past Surgical History: Yes: Appendectomy, Cholecystectomy, - Alcohol/Substance Use Hx Alcohol Use: No - Smoking History Smoking history: Never smoked Have you smoked in the past 12 months: No Aproximately how many cigarettes per day: 0 - Social History Usual Living Arrangement: Alone 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 (also has [employer] 6 hours x5 days and 5 hours x2 days) History of Recent Travel: No Home Medications - Allergies Allergies/Adverse Reactions: Allergies Allergy/AdvReac Type Severity Reaction Status Date / Time No Known Allergies Allergy Verified 12/23/18 17:14 - Home Medications Home Medications: Ambulatory Orders Aspirin [Adult Aspirin Regimen] 81 mg PO DAILY 09/23/18 Atorvastatin Ca [Lipitor] 20 mg PO HS 09/23/18 Carbidopa/Levodopa 25/100 [Sinemet 25/100 -] 1 each PO TID 09/23/18 Docusate Sodium [Stool Softener] 100 mg PO HS 09/23/18 Labetalol HCl 400 mg PO TID 09/23/18 Lipase/Protease/Amylase [Elaine Sweeney 36,000 Units Capsule] 1 each PO TID 09/23/18 Mirtazapine 30 mg PO HS 09/23/18 Olmesartan Medoxomil [Benicar -] 40 mg PO DAILY 09/23/18 traMADol HCL [Ultram -] 50 mg PO TID PRN 09/23/18 Furosemide [Lasix -] 80 mg PO BID@0600,1400 #60 tablet 09/30/18 Levothyroxine [Synthroid -] 25 mcg PO DAILY@0700 #30 tablet 09/30/18 Potassium Chloride [K-Dur -] 20 meq PO DAILY #30 tablet.er 09/30/18 Sennosides [Senna -] 2 tab PO HS PRN tablet 09/30/18 Doxazosin Mesylate [Cardura -] 2 mg PO BID tablet 10/11/18 Bupropion HCl [Wellbutrin -] 100 mg PO DAILY #30 tablet 12/26/18 Furosemide [Lasix -] 40 mg PO BID@0600,1400 #30 tablet 12/26/18 Insulin (Levemir) [Levemir Vial] 8 units SQ HS #100 units 12/26/18 Labetalol HCl [Normodyne -] 400 mg PO TID tablet 12/26/18 Polyethylene Glycol 3350 [Miralax 119 gm Btl -] 17 gm PO BID #1 bottle 12/26/18 hydrALAZINE HCL [Apresoline -] 50 mg PO TID #30 tablet 12/26/18 Vital Signs: Vital Signs Temperature 97.4 F L 12/26/18 10:00 Pulse Rate 70 12/26/18 14:31 Respiratory Rate 20 12/26/18 14:31 Blood Pressure 128/50 L 12/26/18 14:31 O2 Sat by Pulse Oximetry (%) 100 12/25/18 21:00 Constitutional: Yes: Thin HENT: Yes: WNL Neck: Yes: WNL Respiratory: Yes: CTA Bilaterally Gastrointestinal: Yes: Soft Cardiovascular: Yes: Regular Rate and Rhythm Heart Sounds: Yes: S1, S2 Extremities: Yes: WNL Edema: Yes Neurological: Yes: Alert, Oriented - Other Data Labs, Other Data: CBC, BMP 12/25/18 07:25 12/26/18 06:55 Assessment/Plan 78 year old female with a PMH of DM, HTN, and Parkinsons. H/o diverticulosis and constipation. Was noted to have hypotension, BP was 88/42 mmHg. Current BP 128/50 mmHg. No cardiac symptoms. Transient Hypotension Seems to have resolved She is on multiple blood pressure meds and would consider simplifying her regimen. Would consider: Furosemide 40 mg PO Daily Diovan 320 mg PO daily Toprol XL 50 mg PO Daily Nifedipine 60 mg XL PO daily Follow as and outpatient for titration
[2018-12-26 16:04] VITALS: PULSE 59
[2018-12-26 16:58] VITALS: BMI 18.5
[2018-12-26 18:26] VITALS: BP 155/55; TEMP 98.1
--- NOTE | 2018-12-28 10:06 | PN ---
Progress Note (short form) - Note Progress Note: ADDENDUM DX: PATIENT SUFFERS FROM SEVERE PROTEIN MALNUTRITION
== END 2018-12-26 20:02 | disposition home or self-care (01) | DRG 388 ==
LOC: JER 15:49 → JERBED 17:46 → J5S 21:43
PROVIDERS: ADMIT Family Medicine; ATTEND Family Medicine
DX: K56.41 Fecal impaction (principal); E43 Unspecified severe protein-calorie malnutrition; N17.9 Acute kidney failure, unspecified; R64 Cachexia; Z68.1 Body mass index [BMI] 19.9 or less, adult; I13.0 Hypertensive heart and chronic kidney disease with heart failure and stage 1 through stage 4 chronic kidney disease, or unspecified chronic kidney disease; G20 Parkinson's disease; F02.80 Dementia in other diseases classified elsewhere, unspecified severity, without behavioral disturbance, psychotic disturbance, mood disturbance, and anxiety; K57.90 Diverticulosis of intestine, part unspecified, without perforation or abscess without bleeding; K58.9 Irritable bowel syndrome, unspecified; E78.00 Pure hypercholesterolemia, unspecified; F41.9 Anxiety disorder, unspecified; R25.8 Other abnormal involuntary movements; E86.0 Dehydration; E87.6 Hypokalemia; E11.42 Type 2 diabetes mellitus with diabetic polyneuropathy; R63.4 Abnormal weight loss; I95.9 Hypotension, unspecified; I25.10 Atherosclerotic heart disease of native coronary artery without angina pectoris; M54.5 Low back pain; K21.9 Gastro-esophageal reflux disease without esophagitis; R11.2 Nausea with vomiting, unspecified; N18.9 Chronic kidney disease, unspecified; I50.9 Heart failure, unspecified; E11.22 Type 2 diabetes mellitus with diabetic chronic kidney disease; Z99.81 Dependence on supplemental oxygen
CPT/HCPCS: 36415; 70450-TC; 71045-TC-FY; 74018-TC-FY; 80048; 80053; 81003; 82550; 82947; 82962; 83690; 83735; 84100; 84439; 84443; 84484; 85025; 87086; 87186; 93005; 93010; 99284-25; J1644; J7030

== ENCOUNTER 2019-03-15 14:34 | Inpatient (IN) | payer OTHER ==
--- NOTE | 2019-03-15 14:57 | PDOC ---
History of Present Illness - General Chief Complaint: Nausea/Vomiting Stated Complaint: VOMITTING / PAIN Time Seen by Provider: 03/15/19 14:57 History Source: Patient Exam Limitations: Language Barrier (polish) - History of Present Illness Initial Comments: 03/15/19 14:57 78yo F with PMH of DM, HTN, Parkinson's Disease, Dementia, CHF, CKD, Diverticulosis presenting w abdominal pain and nausea. Per daughter, 4d ago pt started complained of nausea. Had bowel movement 3d ago after miralax and docusate doses doubled. 2d ago developed subsequent ABD spasms and pain worst in RLQ. Yesterday had another bowel movement but continues to complain about nausea, bladder pain, ABD muscle spasms despite scheduled constipation meds, enema, zofran. Pt non compliant w constipation meds for past 3 weeks. Last seen on 12/23/18 for similar symptoms attributed to constipation and E.coli/ klebsiella UTI. Denies fever, cough, chest pain, SOB, vomiting, loss of appetite. Past History - Past Medical History Allergies/Adverse Reactions: Allergies Allergy/AdvReac Type Severity Reaction Status Date / Time No Known Allergies Allergy Verified 03/15/19 14:46 Home Medications: Ambulatory Orders Aspirin [Adult Aspirin Regimen] 81 mg PO DAILY 09/23/18 Atorvastatin Ca [Lipitor] 20 mg PO HS 09/23/18 Docusate Sodium [Stool Softener] 100 mg PO HS 09/23/18 Lipase/Protease/Amylase [Creon Dr 36,000 Units Capsule] 1 each PO TID 09/23/18 Mirtazapine 30 mg PO HS 09/23/18 traMADol HCL [Ultram -] 50 mg PO TID PRN 09/23/18 Levothyroxine [Synthroid -] 25 mcg PO DAILY@0700 #30 tablet 09/30/18 Potassium Chloride [K-Dur -] 20 meq PO DAILY #30 tablet.er 09/30/18 Sennosides [Senna -] 2 tab PO HS PRN tablet 09/30/18 Bupropion HCl [Wellbutrin -] 100 mg PO DAILY #30 tablet 12/26/18 Carbidopa/Levodopa *Cr* 25/100 [Sinemet *Cr* 25/100 -] 1 combo PO TID #21 tablet.er MDD 3 12/26/18 Donepezil HCl [Aricept] 10 mg PO DAILY #30 tablet 12/26/18 Famotidine [Pepcid] 40 mg PO BID #30 tablet 12/26/18 Furosemide 40 mg PO DAILY #30 tablet 12/26/18 Insulin (Levemir) [Levemir Vial] 8 units SQ HS #100 units 12/26/18 Metoprolol Succinate [Toprol Xl] 50 mg PO DAILY #30 tab.er.24h 12/26/18 Nifedipine [Nifedipine ER] 60 mg PO DAILY #30 tab.er.24 12/26/18 Polyethylene Glycol 3350 [Miralax 119 gm Btl -] 17 gm PO BID #1 bottle 12/26/18 Valsartan [Diovan] 160 mg PO DAILY #30 tablet 12/26/18 Anemia: No Asthma: No Cancer: No Cardiac Disorders: No CVA: No COPD: No CHF: Yes (oxygen dependent) DVT: No Dementia: Yes Diabetes: Yes GI Disorders: Yes (DIVERTICULOSIS, IBM) Disorders: Yes (UTERINE POLYPS,URINARY INCONTINENCE) HTN: Yes Hypercholesterolemia: Yes Liver Disease: No Psychiatric Problems: Yes (Dementia) Seizures: No Thyroid Disease: No - Surgical History Abdominal Surgery: (abdominoplasty 15 yrs ago (tissue became necrotic)) Appendectomy: Yes Cardiac Surgery: No Cholecystectomy: Yes Lung Surgery: No Neurologic Surgery: No Orthopedic Surgery: No - Immunization History Immunization Up to Date: Yes - Psycho Social/Smoking Cessation Hx Smoking Status: No Smoking History: Never smoked Have you smoked in the past 12 months: No Number of Cigarettes Smoked Daily: 0 Information on smoking cessation initiated: No Hx Alcohol Use: No Drug/Substance Use Hx: No Substance Use Type: None Hx Substance Use Treatment: No Review of Systems - Review of Systems Constitutional: No: Chills, Fever HEENTM: No: Eye Pain, Nose Pain, Throat Pain, Mouth Pain Respiratory: No: Cough, Shortness of Breath Cardiac (ROS): No: Chest Pain, Palpitations, Syncope ABD/GI: Yes: Constipated, Nausea. No: Abdominal Distended, Diarrhea, Poor Appetite, Vomiting : Yes: Pain (bladder). No: Burning, Dysuria, Hematuria Musculoskeletal: No: Back Pain, Joint Pain Integumentary: No: Bruising, Flushing, Lesions Neurological: No: Headache, Numbness, Seizure, Tingling Psychiatric: No: Anxiety, Depression, Stressors Endocrine: No: Excessive Sweating, Flushing, Intolerance to Cold, Intolerance to Heat Hematologic/Lymphatic: No: Anemia, Blood Clots *Physical Exam - Vital Signs Last Vital Signs Temp Pulse Resp BP Pulse Ox 97.8 F 59 L 17 157/52 L 100 03/15/19 14:42 03/15/19 14:42 03/15/19 14:42 03/15/19 14:42 03/15/19 14:42 - Physical Exam General Appearance: Yes: Nourished, Appropriately Dressed, Mild Distress HEENT: positive: EOMI, DIAMOND, Normal Voice. negative: Scleral Icterus (R), Scleral Icterus (L), Nasal Congestion Respiratory/Chest: positive: Lungs Clear, Normal Breath Sounds. negative: Chest Tender, Respiratory Distress, Crackles, Rales, Rhonchi, Stridor, Wheezing Cardiovascular: positive: Regular Rhythm, Regular Rate, S1, S2, Systolic Murmur. negative: Edema Gastrointestinal/Abdominal: positive: Normal Bowel Sounds, Tender (diffuse mild tender, moderate tender RLQ), Flat, Soft, Other (lower abd surgical scars). negative: Organomegaly, Rebound, Hernia, Mass Musculoskeletal: negative: CVA Tenderness (R), CVA Tenderness (L) Extremity: positive: Delayed Capillary Refill Integumentary: positive: Normal Color, Dry Neurologic: positive: Fully Oriented, Alert, Normal Response, Responsive. negative: Sensory Deficit, Confused, Disoriented ED Treatment Course - LABORATORY CBC & Chemistry Diagram: 03/15/19 15:17 03/15/19 15:17 Medical Decision Making - Medical Decision Making 03/15/19 15:22 EKG shows sinus bradycardia, HR 54, QTc 443, no ST changes CT A/P showed large amount of gas in bladder, extensive colonic diverticulosis --- 78yo F with PMH of DM, HTN, Parkinson's Disease, Dementia, CHF, CKD, Diverticulosis presenting w abdominal pain and nausea d/t UTI with JASPER (Cr 2.0 up from 1.5 baseline). Also has anemia Hgb 9.1 (baseline 10) CT AP showed large amount of gas in bladder, extensive colonic diverticulosis Given tylenol, 4 morphine, zofran, 1L NS, reglan, pyridium, rocephin without pain relief on re-eval Admitted for intractable abdominal pain, UTI w JASPER, anemia Discharge - Discharge Information Problems reviewed: Yes Clinical Impression/Diagnosis: Intractable abdominal pain UTI (urinary tract infection) Qualifiers: Urinary tract infection type: acute pyelonephritis Qualified Code(s): N10 - Acute pyelonephritis Condition: Stable - Follow up/Referral Referrals: Ro Espana MD [Primary Care Provider] - - Patient Discharge Instructions - Post Discharge Activity
[2019-03-15] MEDS ORDERED: ACETAMINOPHEN 1000 MG/100 ML VIAL (NON FORMULARY) IVPB ONE (15:19)
[2019-03-15] MEDS ORDERED: SODIUM CHLORIDE 0.9% 500 ML INFUS.BAG IV ONE (15:19)
[2019-03-15] MEDS ORDERED: ACETAMINOPHEN INJECTION 100 ML IVPB ONE (15:24)
[2019-03-15 15:41] LABS: BASO % 0.9 % (0-2.0); EOS % 1.6 % (0-4.5); HEMATOCRIT 27.3 % (32.4-45.2); HEMOGLOBIN 9.1 GM/dL (10.7-15.3); LYMPH % 7.9 % (8-40); MCH 29.3 pg (25.7-33.7); MCHC 33.3 g/dl (32.0-36.0); MEAN CELL VOLUME 87.8 fl (80-96); MEAN PLT VOLUME 7.8 fl (7.5-11.1); MONO % 9.1 % (3.8-10.2); NEUT % 80.5 % (42.8-82.8); PLATELET COUNT 350 K/MM3 (134-434); RBC 3.11 M/mm3 (3.60-5.2); RDW 13.5 % (11.6-15.6); WHITE BLOOD COUNT 9.2 K/mm3 (4.0-10.0)
[2019-03-15] MEDS ORDERED: ONDANSETRON 4 MG/2 ML VIAL IVPUSH ONE (15:45)
[2019-03-15] MEDS ORDERED: morphine CARPU-JECT 4 MG/1 ML DISP.SYRIN IVPUSH ONE (15:45)
--- NOTE | 2019-03-15 15:50 | PDOC ---
Documentation entered by Linda Hannah SCRIBE, acting as scribe for Carmine Hairston MD. Carmine Hairston MD: This documentation has been prepared by the abbeibeCamden Maria, SCRIBE, under my direction and personally reviewed by me in its entirety. I confirm that the documentation accurately reflects all work, treatment, procedures, and medical decision making performed by me. Attending Attestation - Resident Resident Name: Rosy,Zoltan - ED Attending Attestation I have performed the following: I have examined & evaluated the patient, The case was reviewed & discussed with the resident, I agree w/resident's findings & plan, Exceptions are as noted - HPI HPI: 03/15/19 15:52 Patient is a 79 year old female with a significant PMH of DM, HTN, Parkinson' s Disease, Dementia, CHF, CKD, and Diverticulosis who presents to the ED with 4 days of abdominal pain and nausea. Pt has been having intermittent constipation due to noncompliance with her stool regimen. Last BM was yesterday after taking mag citrate. However, despite having BMs, pt has been having abdominal pain in her RLQ. She describes the pain as sharp spasms. She denies recent fevers, chills, headache or dizziness. She denies recent vomiting. - Physicial Exam PE: 03/15/19 15:00 "GENERAL: Awake, alert, and fully oriented, in no acute distress. HEAD: No signs of trauma EYES: PERRLA, EOMI, sclera anicteric, conjunctiva clear ENT: Auricles normal inspection, hearing grossly normal, nares patent, oropharynx clear without exudates. Moist mucosa NECK: Nontender, no stepoffs, Normal ROM, supple, no lymphadenopathy, JVD, or masses LUNGS: Breath sounds equal, clear to auscultation bilaterally. No wheezes, and no crackles HEART: Regular rate and rhythm, normal S1 and S2, no murmurs, rubs or gallops ABDOMEN: + diffuse TTP, normoactive bowel sounds. No guarding, no rebound. No masses EXTREMITIES: Normal range of motion, no edema. No clubbing or cyanosis. No cords, erythema, or tenderness NEUROLOGICAL: Cranial nerves II through XII intact. 5/5 strength and sensation in all extremities, Normal speech, normal gait, normal cerebellar function SKIN: Warm, Dry, normal turgor, no rashes or lesions noted. - Medical Decision Making 03/15/19 16:01 79 F with abdominal pain. Diffusely tender. 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 Possibly 2/2 bladder spasms. Will give pyridium
[2019-03-15 15:51] LABS: EPI CELLS 0.4 /HPF (0-5/HPF); HYALINE CASTS 3 /lpf (0-8); URINE APPEARANCE CLOUDY; URINE BACTERIA 1900.3 /hpf (NEGATIVE); URINE BILIRUBIN NEGATIVE (NEGATIVE); URINE COLOR YELLOW; URINE GLUCOSE (UA) NEGATIVE (NEGATIVE); URINE KETONE NEGATIVE (NEGATIVE); URINE LEUK ESTERASE 2+ (NEGATIVE); URINE NITRITE NEGATIVE (NEGATIVE); URINE PROTEIN 2+ (NEGATIVE); URINE RBC 3 /hpf (0-4); URINE UROBILINOGEN 0.2 mg/dL (0.2-1.0); URINE WBC 33 /hpf (0-5)
[2019-03-15] MEDS ORDERED: MORPHINE SULFATE 2 MG/ML VIAL ONE ×2 (15:58→17:41)
[2019-03-15] MEDS ORDERED: ONDANSETRON 4 MG/2 ML VIAL ONE ×2 (15:59→17:41)
[2019-03-15 16:12] LABS: ALBUMIN 3.5 g/dl (3.4-5.0); BILIRUBIN,TOTAL 0.5 mg/dL (0.2-1); BLOOD UREA NITROGEN 47.3 mg/dL (7-18); CALCIUM 9.3 mg/dL (8.5-10.1); POTASSIUM 4.8 mmol/L (3.5-5.1)
[2019-03-15] MEDS ORDERED: morphine CARPU-JECT 2 MG/1 ML DISP.SYRIN IVPUSH ONE (16:21)
[2019-03-15] MEDS ORDERED: ONDANSETRON 4 MG/2 ML VIAL IVPB ONE (17:36)
[2019-03-15] MEDS ORDERED: CEFTRIAXONE 1,000 MG in DEXTROSE 5%-WATER - 50 ML IVPB ONE (18:32)
[2019-03-15] MEDS ORDERED: PHENAZOPYRIDINE HCL 100 MG TABLET (FP) PO ONE (18:42)
[2019-03-15] MEDS ORDERED: PHENAZOPYRIDINE HCL 100 MG TABLET (FP) ONE (18:44)
[2019-03-15] MEDS ORDERED: CEFTRIAXONE 1 GM/50 ML BAG ONE (18:45)
[2019-03-15] MEDS ORDERED: METOCLOPRAMIDE HCL INJECTION 10 MG/2 ML VIAL IVPB ONE (18:56)
[2019-03-15] MEDS ORDERED: METOCLOPRAMIDE HCL INJECTION 10 MG/2 ML VIAL ONE (19:23)
[2019-03-15] MEDS ORDERED: BACLOFEN 10 MG TABLET (FP) PO ONE (20:22)
[2019-03-15] MEDS ORDERED: LABETALOL HCL 200 MG TABLET (FP) PO ONE (20:32)
[2019-03-15] MEDS ORDERED: BACLOFEN 10 MG TABLET (FP) ONE (20:44)
[2019-03-15] MEDS ORDERED: LABETALOL HCL 100 MG TABLET (FP) ONE (20:44)
--- NOTE | 2019-03-15 21:30 | HP ---
CHIEF COMPLAINT: Nausea, abd pain, constipation PCP: Dr. Espana HISTORY OF PRESENT ILLNESS: Patient is a 78 year old female with PMH of DM, HTN, Parkinson's Disease, Dementia, CHF, CKD, Diverticulosis who presents with constipation, nausea, abd pain. 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 She has incontinence at baseline and wear a diaper, is able to ambulate with a walker, can perform most of her ADLs with minimal assistance. Daughter is at bedside to assist with history. On Wednesday, pt was experiencing nausea and abd discomfort. Daughter noticed pt has not had bowel movement for about a week so she double her constipation medications (miralax and docusate) on Wednesday. On Wednesday, pt had multiple large bowel movements and felt better. Today, pt began experiencing worsening nausea and abd discomfort as well as abdominal muscle spasms ever couple minutes. Denies fevers, chills, urinary symptoms, SOB, chest pain. She has been keeping hydrated with water and pedialyte and has been eating well. Today she has not eaten at all due to being in the hospital. Recent Travel: denies PAST MEDICAL HISTORY: As per HPI PAST SURGICAL HISTORY: Appendectom Cholecystectomy Ex-laps Social History: Smoking: denies Alcohol: denies Drugs: denies Allergies No Known Allergies Allergy (Verified 03/15/19 14:46) HOME MEDICATIONS: Home Medications Medication Instructions Recorded Aspirin [Adult Aspirin Regimen] 81 mg PO DAILY 09/23/18 Atorvastatin Ca [Lipitor] 20 mg PO HS 09/23/18 Docusate Sodium [Stool Softener] 100 mg PO HS 09/23/18 Lipase/Protease/Amylase [Elaine Dr 1 each PO TID 09/23/18 36,000 Units Capsule] Mirtazapine 30 mg PO HS 09/23/18 traMADol HCL [Ultram -] 50 mg PO TID PRN 09/23/18 Levothyroxine [Synthroid -] 25 mcg PO DAILY@0700 #30 tablet 09/30/18 Potassium Chloride [K-Dur -] 20 meq PO DAILY #30 tablet.er 09/30/18 Sennosides [Senna -] 2 tab PO HS PRN tablet 09/30/18 Bupropion HCl [Wellbutrin -] 100 mg PO DAILY #30 tablet 12/26/18 Carbidopa/Levodopa *Cr* 25/100 1 combo PO TID #21 tablet.er MDD 3 12/26/18 [Sinemet *Cr* 25/100 -] Donepezil HCl [Aricept] 10 mg PO DAILY #30 tablet 12/26/18 Famotidine [Pepcid] 40 mg PO BID #30 tablet 12/26/18 Furosemide 40 mg PO DAILY #30 tablet 12/26/18 Insulin (Levemir) [Levemir Vial] 8 units SQ HS #100 units 12/26/18 Metoprolol Succinate [Toprol Xl] 50 mg PO DAILY #30 tab.er.24h 12/26/18 Nifedipine [Nifedipine ER] 60 mg PO DAILY #30 tab.er.24 12/26/18 Polyethylene Glycol 3350 [Miralax 17 gm PO BID #1 bottle 12/26/18 119 gm Btl -] Valsartan [Diovan] 160 mg PO DAILY #30 tablet 12/26/18 REVIEW OF SYSTEMS CONSTITUTIONAL: Absent: fever, chills, diaphoresis, generalized weakness, malaise, loss of appetite, weight change HEENT: Absent: rhinorrhea, nasal congestion, throat pain, throat swelling, difficulty swallowing, mouth swelling, ear pain, eye pain, visual changes CARDIOVASCULAR: Absent: chest pain, syncope, palpitations, irregular heart rate, lightheadedness , peripheral edema RESPIRATORY: Absent: cough, shortness of breath, dyspnea with exertion, orthopnea, wheezing, stridor, hemoptysis GASTROINTESTINAL: abdominal pain, nausea, constipation Absent: abdominal distension, vomiting, diarrhea, melena, hematochezia GENITOURINARY: Absent: dysuria, frequency, urgency, hesitancy, hematuria, flank pain, genital pain MUSCULOSKELETAL: Absent: myalgia, arthralgia, joint swelling, back pain, neck pain SKIN: Absent: rash, itching, pallor HEMATOLOGIC/IMMUNOLOGIC: Absent: easy bleeding, easy bruising, lymphadenopathy, frequent infections ENDOCRINE: Absent: unexplained weight gain, unexplained weight loss, heat intolerance, cold intolerance NEUROLOGIC: Absent: headache, focal weakness or paresthesias, dizziness, unsteady gait, seizure, mental status changes, bladder or bowel incontinence PSYCHIATRIC: Absent: anxiety, depression, suicidal or homicidal ideation, hallucinations. PHYSICAL EXAMINATION Vital Signs - 24 hr 03/15/19 03/15/19 14:42 17:30 Temperature 97.8 F Pulse Rate 59 L Pulse Rate [ 78 Right] Respiratory 17 18 Rate Blood Pressure 157/52 L Blood Pressure 170/62 [Left Arm] O2 Sat by Pulse 100 95 Oximetry (%) GENERAL: Awake, alert, and fully oriented, in no acute distress. HEAD: Normal with no signs of trauma. EYES: Pupils equal, round and reactive to light, extraocular movements intact, sclera anicteric, conjunctiva clear. No lid lag. EARS, NOSE, THROAT: Ears normal, nares patent, oropharynx clear without exudates. Moist mucous membranes. NECK: Normal range of motion, supple without lymphadenopathy, JVD, or masses. LUNGS: Breath sounds equal, clear to auscultation bilaterally. No wheezes, and no crackles. No accessory muscle use. HEART: Regular rate and rhythm, normal S1 and S2 without murmur, rub or gallop. ABDOMEN: Soft, diffusely tender, not distended, normoactive bowel sounds, no guarding, no rebound, no masses. No hepatomegaly or splenomegaly. Active muscle spasms every few minutes. MUSCULOSKELETAL: Normal range of motion at all joints. No bony deformities or tenderness. No CVA tenderness. UPPER EXTREMITIES: 2+ pulses, warm, well-perfused. No cyanosis. No clubbing. No peripheral edema. LOWER EXTREMITIES: 2+ pulses, warm, well-perfused. No calf tenderness. No peripheral edema. NEUROLOGICAL: Cranial nerves II-XII intact. Normal speech. Normal gait. PSYCHIATRIC: Cooperative. Good eye contact. Appropriate mood and affect. SKIN: Warm, dry, normal turgor, no rashes or lesions noted, normal capillary refill. Laboratory Results - last 24 hr CBC, BMP 03/15/19 15:17 03/15/19 15:17 Urine Test Results Urine Color Yellow Urine Appearance Cloudy Urine pH 6.0 (5.0-8.0) Ur Specific [place] 1.010 (1.010-1.035) Urine Protein 2+ (NEGATIVE) H Urine Glucose (UA) Negative (NEGATIVE) Urine Ketones Negative (NEGATIVE) Urine Blood Negative (NEGATIVE) Urine Nitrite Negative (NEGATIVE) Urine Bilirubin Negative (NEGATIVE) Ur Leukocyte Esterase 2+ (NEGATIVE) H ASSESSMENT/PLAN: Patient is a 78 year old female with PMH of DM, HTN, Parkinson's Disease, Dementia, CHF, CKD, Diverticulosis who presents with constipation, nausea, abd pain. #Emphysematous Cystitis CTAP: large amount of gas in urinary bladder. Possibly 2/2 instrumentation, cannot r/o infectious etiology UA: 2+ LE, 2+ protein Cont IV ceftriaxone 2gm daily F/u urine and blood cx Zofran 4mg prn and IV tylenol prn Dicyclomine 10mg prn for spasms #Nausea/vomiting Likely 2/2 constipation Cont home meds: miralax, docusate #FEN IV NS @ 42ml/hr #DVT ppx Heparin sq #Dispo Monitor on med-surg Visit type - Emergency Visit Emergency Visit: Yes ED Registration Date: 03/15/19 Care time: The patient presented to the Emergency Department on the above date and was hospitalized for further evaluation of their emergent condition. - New Patient This patient is new to me today: Yes Date on this admission: 03/16/19 - Critical Care Critical Care patient: No ATTENDING PHYSICIAN STATEMENT I saw and evaluated the patient. I reviewed the resident's note and discussed the case with the resident. I agree with the resident's findings and plan as documented. SUBJECTIVE: OBJECTIVE: ASSESSMENT AND PLAN:
[2019-03-15] MEDS: SODIUM CHLORIDE 1,000 ML IV SCH (23:13)
[2019-03-15] MEDS: POLYETHYLENE GLYCOL 3350 119 GM BTL PO SCH (23:13)
[2019-03-15] MEDS: ACETAMINOPHEN 325 MG TABLET (FP) PO PRN (23:48)
[2019-03-15] MEDS: ONDANSETRON 4 MG TABLET PO PRN (23:48)
[2019-03-15] MEDS: DICYCLOMINE HCL 10 MG CAPSULE PO PRN (23:52)
[2019-03-16] MEDS ORDERED: ALBUTEROL SO4 2.5/IPRATROPIUM 0.5 INH SOL 3 ML VIAL.NEB. NEB PRN (00:34)
--- NOTE | 2019-03-16 00:34 | PN ---
Teaching Attending Note Name of Resident: Smiley Albrecht ATTENDING PHYSICIAN STATEMENT I saw and evaluated the patient. I reviewed the resident's note and discussed the case with the resident. I agree with the resident's findings and plan as documented. SUBJECTIVE: 78 year old female with PMH of DM, HTN, Parkinson's Disease, Dementia, CHF, CKD, Diverticulosis presented with generalized abdominal pain. After coming to ED she was found to OBJECTIVE: Vital Signs (72 hours) 03/15/19 03/15/19 03/15/19 14:42 17:30 20:56 Temperature 97.8 F Pulse Rate 59 L Pulse Rate [ 78 83 Right] Respiratory 17 18 18 Rate Blood Pressure 157/52 L Blood Pressure 170/62 170/73 [Left Arm] O2 Sat by Pulse 100 95 99 Oximetry (%) 03/15/19 03/15/19 21:23 23:21 Temperature Pulse Rate Pulse Rate [ 67 Right] Respiratory 18 Rate Blood Pressure Blood Pressure 107/68 [Left Arm] O2 Sat by Pulse 95 95 Oximetry (%) GENERAL: Awake, alert, and fully oriented, in no acute distress. HEAD: Normal with no signs of trauma. EYES: Pupils equal, round and reactive to light, extraocular movements intact, sclera anicteric, conjunctiva clear. No lid lag. EARS, NOSE, THROAT: Ears normal, nares patent, oropharynx clear without exudates. Moist mucous membranes. NECK: Normal range of motion, supple without lymphadenopathy, JVD, or masses. LUNGS: Breath sounds equal, clear to auscultation bilaterally. No wheezes, and no crackles. No accessory muscle use. HEART: Regular rate and rhythm, normal S1 and S2 without murmur, rub or gallop. ABDOMEN: Mild generalized diffuse tenderness not distended, normoactive bowel sounds, no guarding, no rebound, no masses. No hepatomegaly or splenomegaly. MUSCULOSKELETAL: Normal range of motion at all joints. No bony deformities or tenderness. No CVA tenderness. UPPER EXTREMITIES: 2+ pulses, warm, well-perfused. No cyanosis. No clubbing. No peripheral edema. LOWER EXTREMITIES: 2+ pulses, warm, well-perfused. No calf tenderness. No peripheral edema. NEUROLOGICAL: Cranial nerves II-XII intact. Normal speech. Normal gait. PSYCHIATRIC: Cooperative. Good eye contact. Appropriate mood and affect. SKIN: Warm, dry, normal turgor, no rashes or lesions noted, normal capillary refill. Laboratory Tests 03/15/19 03/15/19 03/15/19 15:17 15:17 15:17 WBC 9.2 RBC 3.11 L Hgb 9.1 L Hct 27.3 L MCV 87.8 MCH 29.3 MCHC 33.3 RDW 13.5 Plt Count 350 MPV 7.8 Absolute Neuts (auto) 7.4 Neutrophils % 80.5 Lymphocytes % 7.9 L D Monocytes % 9.1 Eosinophils % 1.6 Basophils % 0.9 Nucleated RBC % 0 Sodium 131 L Potassium 4.8 Chloride 96 L Carbon Dioxide 30 Anion Gap 6 L BUN 47.3 H Creatinine 2.0 H Est GFR (CKD-EPI)AfAm 27.22 Est GFR (CKD-EPI)NonAf 23.49 POC Glucometer Random Glucose 217 H Lactic Acid 1.1 Calcium 9.3 Total Bilirubin 0.5 AST 16 ALT 15 Alkaline Phosphatase 102 Total Protein 7.0 Albumin 3.5 Lipase 40 L Urine Color Urine Appearance Urine pH Ur Specific [place] Urine Protein Urine Glucose (UA) Urine Ketones Urine Blood Urine Nitrite Urine Bilirubin Urine Urobilinogen Ur Leukocyte Esterase Urine WBC (Auto) Urine RBC (Auto) Urine Casts (Auto) U Epithel Cells (Auto) Urine Bacteria (Auto) 03/15/19 03/15/19 15:20 23:02 WBC RBC Hgb Hct MCV MCH MCHC RDW Plt Count MPV Absolute Neuts (auto) Neutrophils % Lymphocytes % Monocytes % Eosinophils % Basophils % Nucleated RBC % Sodium Potassium Chloride Carbon Dioxide Anion Gap BUN Creatinine Est GFR (CKD-EPI)AfAm Est GFR (CKD-EPI)NonAf POC Glucometer 214 Random Glucose Lactic Acid Calcium Total Bilirubin AST ALT Alkaline Phosphatase Total Protein Albumin Lipase Urine Color Yellow Urine Appearance Cloudy Urine pH 6.0 Ur Specific [place] 1.010 Urine Protein 2+ H Urine Glucose (UA) Negative Urine Ketones Negative Urine Blood Negative Urine Nitrite Negative Urine Bilirubin Negative Urine Urobilinogen 0.2 Ur Leukocyte Esterase 2+ H Urine WBC (Auto) 33 Urine RBC (Auto) 3 Urine Casts (Auto) 3 U Epithel Cells (Auto) 0.4 Urine Bacteria (Auto) 1900.3 ASSESSMENT AND PLAN: UTI Constipation DM, HTN, Parkinson's Disease, Dementia, CHF, CKD, Diverticulosis CT abd reviewed. Emphysematous cystitis possible infectious etiology Admit to floor gentle hydration IV ceftriaxone 2 gram daily urine culture, blood culture Zofran 4mg prn and IV tylenol prn Dicyclomine 10mg prn for spasms \DVT ppx Resume home meds Give miralax and docusate for constipation
--- NOTE | 2019-03-16 05:06 | EKG ---
Test Reason : Blood Pressure : / mmHG Vent. Rate : 054 BPM Atrial Rate : 054 BPM P-R Int : 184 ms QRS Dur : 116 ms QT Int : 468 ms P-R-T Axes : 017 -46 013 degrees QTc Int : 443 ms SINUS BRADYCARDIA LEFT ANTERIOR FASCICULAR BLOCK ABNORMAL ECG WHEN COMPARED WITH ECG OF 23-DEC-2018 16:26, NO SIGNIFICANT CHANGE WAS FOUND Confirmed by ALEX LIMON MD ([id number]) on 03/16/2019 5:05:51 AM Referred By: Confirmed By:ALEX LIMON MD
[2019-03-16] MEDS: HEPARIN NA (PORCINE) 5,000 UNITS/ML 1ML VIAL SQ SCH ×3 (05:50→22:40)
[2019-03-16] MEDS: INSULIN SLIDING SCALE (NOVOLOG) 1 VIAL SQ SCH ×3 (06:06→17:15)
[2019-03-16 07:15] LABS: BASO % 0.6 % (0-2.0); EOS % 2.5 % (0-4.5); HEMATOCRIT 26.3 % (32.4-45.2); LYMPH % 8.3 % (8-40); MCH 29.7 pg (25.7-33.7); MCHC 34.2 g/dl (32.0-36.0); MEAN CELL VOLUME 86.8 fl (80-96); MEAN PLT VOLUME 7.2 fl (7.5-11.1); NEUT % 78.6 % (42.8-82.8); PLATELET COUNT 332 K/MM3 (134-434); RBC 3.04 M/mm3 (3.60-5.2); RDW 13.4 % (11.6-15.6); WHITE BLOOD COUNT 9.4 K/mm3 (4.0-10.0)
[2019-03-16 07:53] LABS: BILIRUBIN,TOTAL 0.6 mg/dL (0.2-1); BLOOD UREA NITROGEN 39.4 mg/dL (7-18); CALCIUM 8.7 mg/dL (8.5-10.1); CREATININE 1.6 mg/dL (0.55-1.3); POTASSIUM 4.1 mmol/L (3.5-5.1); TOT PROT 6.2 g/dl (6.4-8.2)
[2019-03-16] MEDS ORDERED: DEXTROSE 5%-WATER 100 ML IVPB ONE (09:13)
--- NOTE | 2019-03-16 09:45 | PN ---
Progress Note, Physician - Current Medication List Current Medications: Active Medications Acetaminophen (Tylenol -) 650 mg PO Q4H PRN PRN Reason: PAIN LEVEL 6-10 Last Admin: 03/15/19 23:48 Dose: 650 mg Albuterol/Ipratropium (Duoneb -) 1 amp NEB Q6H PRN PRN Reason: SHORTNESS OF BREATH Aspirin (Ecotrin -) 81 mg PO DAILY [facility] Atorvastatin Calcium (Lipitor -) 20 mg PO HS [facility] Bupropion HCl (Wellbutrin Xl -) 150 mg PO DAILY [facility] Dicyclomine HCl (Bentyl -) 10 mg PO Q6H PRN PRN Reason: MUSCLE SPASMS Last Admin: 03/15/19 23:52 Dose: 10 mg Docusate Sodium (Colace -) 100 mg PO HS [facility] Donepezil HCl (Aricept -) 10 mg PO HS [facility] Heparin Sodium (Porcine) (Heparin -) 5,000 unit SQ TID [facility] Last Admin: 03/16/19 05:50 Dose: 5,000 unit Sodium Chloride (Normal Saline -) 1,000 mls @ 42 mls/hr IV ASDIR [facility] Last Admin: 03/15/19 23:13 Dose: 42 mls/hr Ceftriaxone Sodium 2 gm/ (Dextrose) 100 mls @ 100 mls/hr IVPB DAILY [facility] Insulin Aspart (Novolog Vial Sliding Scale -) 1 vial SQ TIDAC [facility]; Protocol Last Admin: 03/16/19 06:06 Dose: Not Given Ondansetron HCl (Zofran -) 4 mg PO Q6H PRN PRN Reason: NAUSEA AND/OR VOMITING Last Admin: 03/15/19 23:48 Dose: 4 mg Polyethylene Glycol (Miralax (For Daily Use) -) 17 gm PO BID [facility] Last Admin: 03/15/19 23:13 Dose: 17 gm - Objective Vital Signs: Vital Signs Temperature 97.5 F L 03/16/19 06:15 Pulse Rate 62 03/16/19 06:15 Respiratory Rate 20 03/16/19 06:15 Blood Pressure 194/63 H 03/16/19 06:15 O2 Sat by Pulse Oximetry (%) 96 03/16/19 00:00 Labs: CBC, BMP 03/16/19 06:27 03/16/19 06:27 Problem List - Problems (1) Emphysematous cystitis Assessment/Plan: CTAP: large amount of gas in urinary bladder. Possibly 2/2 instrumentation, cannot r/o infectious etiology UA: 2+ LE, 2+ protein Cont IV ceftriaxone 2gm daily F/u urine and blood cx Zofran 4mg prn and IV tylenol prn Dicyclomine 10mg prn for spasms Id and Urology Consults Code(s): N30.80 - OTHER CYSTITIS WITHOUT HEMATURIA (2) Constipation Assessment/Plan: Cont home meds: miralax, docusate Code(s): K59.00 - CONSTIPATION, UNSPECIFIED (3) Diabetes Assessment/Plan: bgm Code(s): E11.9 - TYPE 2 DIABETES MELLITUS WITHOUT COMPLICATIONS (4) HTN (hypertension) Code(s): I10 - ESSENTIAL (PRIMARY) HYPERTENSION
[2019-03-16] MEDS: CEFTRIAXONE 2 GM in DEXTROSE 5%-WATER 100 ML IVPB SCH (10:18)
[2019-03-16] MEDS ORDERED: traMADol HCL 50 MG TABLET PO PRN (10:24)
[2019-03-16] MEDS ORDERED: NIFEdipine E.R 60 MG TABLET (UD) PO SCH (10:30)
[2019-03-16] MEDS: VALSARTAN 160 MG TABLET (UD) PO SCH (10:35)
--- NOTE | 2019-03-16 11:33 | PN ---
Progress Note (short form) - Note Progress Note: ID CONSULT DICTATED R/O EMPHYSEMATOUS CYSTITIS POSSIBLE SEPSIS SECONDARY TO SOURCE AZOTEMIA CONTINUE EMPIRIC CEFTRIAXONE r
[2019-03-16] MEDS: ONDANSETRON 4 MG TABLET PO PRN ×2 (12:41→22:40)
[2019-03-16] MEDS: POLYETHYLENE GLYCOL 3350 119 GM BTL PO SCH ×2 (12:45→22:42)
[2019-03-16] MEDS: ASPIRIN COATED 81 MG TABLET.EC PO SCH (12:45)
[2019-03-16] MEDS: LIPASE/PROTEASE/AMYLASE 36,000 UNIT CAPSULE PO SCH ×2 (12:45→17:15)
[2019-03-16] MEDS ORDERED: PT OWN MED DRAWER 7, Y5N ONE (20:47)
[2019-03-16] MEDS ORDERED: SENNOSIDES 8.6MG TABLET (FP) PO PRN (22:00)
[2019-03-16] MEDS ORDERED: LINZESS 72 MCG PO SCH (22:00)
[2019-03-16] MEDS ORDERED: PATIENT'S OWN MEDICATION (NON-FORMULARY) (Famotidine [Pepcid] 40 MG) PO SCH (22:00)
[2019-03-16] MEDS: DOCUSATE SODIUM 100 MG CAPSULE (FP) PO SCH (22:40)
[2019-03-16] MEDS: NIFEdipine E.R 60 MG TABLET (UD) PO SCH (22:41)
[2019-03-16] MEDS: MIRTAZAPINE 15 MG TABLET (FP) PO SCH (22:41)
[2019-03-16] MEDS: DONEPEZIL HCL 10 MG TABLET (FP) PO SCH (22:41)
[2019-03-16] MEDS: hydrALAZINE HCL 50 MG TABLET (FP) PO SCH (22:41)
[2019-03-16] MEDS: ATORVASTATIN CA 20 MG TABLET (FP) PO SCH (22:41)
[2019-03-16] MEDS: LABETALOL HCL 200 MG TABLET (FP) PO SCH (22:41)
[2019-03-16] MEDS: SODIUM CHLORIDE 1,000 ML IV SCH (22:43)
[2019-03-17] MEDS: HEPARIN NA (PORCINE) 5,000 UNITS/ML 1ML VIAL SQ SCH ×3 (05:32→21:24)
[2019-03-17] MEDS: LABETALOL HCL 200 MG TABLET (FP) PO SCH ×3 (05:33→21:23)
[2019-03-17] MEDS: hydrALAZINE HCL 50 MG TABLET (FP) PO SCH ×3 (05:33→21:24)
[2019-03-17] MEDS: INSULIN SLIDING SCALE (NOVOLOG) 1 VIAL SQ SCH ×3 (06:06→17:10)
[2019-03-17] MEDS: LEVOTHYROXINE NA 25 MCG TABLET (FP) PO SCH (06:07)
--- NOTE | 2019-03-17 08:30 | CON.GU ---
Consult Consult Specialty:: urology Referred by:: Malorie Reason for Consultation:: uti/emphysematous cystitis - History of Present Illness Chief Complaint: uti History of Present Illness: Patient with chronic pelvic pain with increased dysuria with frequency and urgency noted over last few days. Patient denies gross hematuria, fever, chills or significant dysuria. - History Source History Provided By: Patient Limitations to Obtaining History: No Limitations - Past Medical History [employer]: Yes: Dementia, Peripheral Neuropathy, Parkinson's Cardio/Vascular: Yes: CHF, HTN, Hyperlipdemia Gastrointestinal: Yes: Diverticulosis Psych: Yes: Anxiety Musculoskeletal: Yes: Osteoarthritis Endocrine: Yes: Diabetes Mellitus - Past Surgical History Past Surgical History: Yes: Appendectomy, Cholecystectomy, - Alcohol/Substance Use Hx Alcohol Use: No - Smoking History Smoking history: Never smoked Have you smoked in the past 12 months: No Aproximately how many cigarettes per day: 0 - Social History Usual Living Arrangement: Alone 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 (also has [employer] 6 hours x5 days and 5 hours x2 days) History of Recent Travel: No Home Medications - Allergies Allergies/Adverse Reactions: Allergies Allergy/AdvReac Type Severity Reaction Status Date / Time carbidopa [From Sinemet] AdvReac Verified 03/16/19 14:29 levodopa [From Sinemet] AdvReac Verified 03/16/19 14:29 - Home Medications Home Medications: Ambulatory Orders Aspirin [Adult Aspirin Regimen] 81 mg PO DAILY 09/23/18 Atorvastatin Ca [Lipitor] 20 mg PO HS 09/23/18 Docusate Sodium [Stool Softener] 100 mg PO HS 09/23/18 Lipase/Protease/Amylase [Elaine Sweeney 36,000 Units Capsule] 1 each PO TID 09/23/18 Mirtazapine 30 mg PO HS 09/23/18 traMADol HCL [Ultram -] 50 mg PO TID PRN 09/23/18 Levothyroxine [Synthroid -] 25 mcg PO DAILY@0700 #30 tablet 09/30/18 Potassium Chloride [K-Dur -] 20 meq PO DAILY #30 tablet.er 09/30/18 Sennosides [Senna -] 2 tab PO HS PRN tablet 09/30/18 Donepezil HCl [Aricept] 10 mg PO DAILY #30 tablet 12/26/18 Famotidine [Pepcid] 40 mg PO BID #30 tablet 12/26/18 Insulin (Levemir) [Levemir Vial] 8 units SQ HS #100 units 12/26/18 Polyethylene Glycol 3350 [Miralax 119 gm Btl -] 17 gm PO BID #1 bottle 12/26/18 Valsartan [Diovan] 160 mg PO DAILY #30 tablet 12/26/18 Benicar 40 mg PO DAILY 03/16/19 Bupropion HCl 150 oz PO DAILY 03/16/19 Furosemide 80 mg PO TID 03/16/19 Hydralazine HCl 50 mg PO TID 03/16/19 Labetalol HCl 200 mg PO TID 03/16/19 Linzess 72 mcg PO HS 03/16/19 Nifedipine ER 60 mg PO BID 03/16/19 Physical Exam- Vital Signs: Vital Signs Temperature 98.6 F 03/17/19 05:34 Pulse Rate 69 03/17/19 05:34 Respiratory Rate 18 03/17/19 05:34 Blood Pressure 158/62 03/17/19 05:34 O2 Sat by Pulse Oximetry (%) 94 L 03/16/19 21:00 Constitutional: Yes: No Distress, Calm Eyes: Yes: WNL, Conjunctiva Clear, EOM Intact HENT: Yes: WNL, Atraumatic, Normocephalic Neck: Yes: WNL, Supple, Trachea Midline Cardiovascular: Yes: WNL, Regular Rate and Rhythm Respiratory: Yes: WNL Gastrointestinal: Yes: Normal Bowel Sounds, Soft Kidneys: Yes: WNL Pelvis: Yes: Bladder Non Palpable (mild suprapubic tenderness) External Genitalia: Yes: WNL Musculoskeletal: Yes: WNL Extremities: Yes: WNL Labs: CBC, BMP 03/16/19 06:27 03/16/19 06:27 Imaging - Results Cat Scan: Report Reviewed Assessment/Plan impression uti with question of emphysematous cystitis with patient afebrile with normal WBC and baseline renal function unchanged with one previous episode of uti a few months ago plan complete antibiotic course will schedule cystoscopy as outpatient
[2019-03-17] MEDS ORDERED: DEXTROSE 5%-WATER 100 ML IVPB ONE (09:33)
--- NOTE | 2019-03-17 09:40 | PN ---
Progress Note, Physician - Current Medication List Current Medications: Active Medications Acetaminophen (Tylenol -) 650 mg PO Q4H PRN PRN Reason: PAIN LEVEL 6-10 Last Admin: 03/15/19 23:48 Dose: 650 mg Albuterol/Ipratropium (Duoneb -) 1 amp NEB Q6H PRN PRN Reason: SHORTNESS OF BREATH Aspirin (Ecotrin -) 81 mg PO DAILY [facility] Last Admin: 03/16/19 12:45 Dose: Not Given Atorvastatin Calcium (Lipitor -) 20 mg PO [facility] Last Admin: 03/16/19 22:41 Dose: 20 mg Bupropion HCl (Wellbutrin Xl -) 150 mg PO DAILY [facility] Last Admin: 03/16/19 12:45 Dose: Not Given Dicyclomine HCl (Bentyl -) 10 mg PO Q6H PRN PRN Reason: MUSCLE SPASMS Last Admin: 03/15/19 23:52 Dose: 10 mg Docusate Sodium (Colace -) 100 mg PO [facility] Last Admin: 03/16/19 22:40 Dose: 100 mg Donepezil HCl (Aricept -) 10 mg PO [facility] Last Admin: 03/16/19 22:41 Dose: 10 mg Heparin Sodium (Porcine) (Heparin -) 5,000 unit SQ TID [facility] Last Admin: 03/17/19 05:32 Dose: 5,000 unit Hydralazine HCl (Apresoline -) 50 mg PO TID [facility] Last Admin: 03/17/19 05:33 Dose: 50 mg Sodium Chloride (Normal Saline -) 1,000 mls @ 42 mls/hr IV ASDIR [facility] Last Admin: 03/16/19 22:43 Dose: 42 mls/hr Ceftriaxone Sodium 2 gm/ (Dextrose) 100 mls @ 100 mls/hr IVPB DAILY [facility] Last Admin: 03/16/19 10:18 Dose: 100 mls/hr Insulin Aspart (Novolog Vial Sliding Scale -) 1 vial SQ TIDAC [facility]; Protocol Last Admin: 03/17/19 06:06 Dose: 4 units Labetalol HCl (Normodyne -) 200 mg PO TID [facility] Last Admin: 03/17/19 05:33 Dose: 200 mg Levothyroxine Sodium (Synthroid -) 25 mcg PO DAILY@0700 [facility] Last Admin: 03/17/19 06:07 Dose: 25 mcg Mirtazapine (Remeron -) 30 mg PO HS [facility] Last Admin: 03/16/19 22:41 Dose: 30 mg Nifedipine (Procardia Xl -) 60 mg PO BID [facility] Last Admin: 03/16/19 22:41 Dose: 60 mg Non-Formulary Medication (Famotidine [Pepcid]) 40 mg PO BID [facility] Non-Formulary Medication (Linzess) 72 mcg PO HS [facility] Ondansetron HCl (Zofran -) 4 mg PO Q6H PRN PRN Reason: NAUSEA AND/OR VOMITING Last Admin: 03/16/19 22:40 Dose: 4 mg Pancrelipase (Creon Dr 36,000 Units Capsule) 1 cap PO TIDCM [facility] Last Admin: 03/16/19 17:15 Dose: 1 cap Polyethylene Glycol (Miralax (For Daily Use) -) 17 gm PO BID [facility] Last Admin: 03/16/19 22:42 Dose: 17 gm Senna (Senna -) 2 tab PO HS PRN PRN Reason: CONSTIPATION Tramadol HCl (Ultram -) 50 mg PO TID PRN PRN Reason: PAIN 1-5 Last Admin: 03/16/19 17:22 Dose: 50 mg Valsartan (Diovan -) 160 mg PO DAILY [facility] Last Admin: 03/16/19 10:35 Dose: 160 mg - Objective Vital Signs: Vital Signs Temperature 98.6 F 03/17/19 05:34 Pulse Rate 69 03/17/19 05:34 Respiratory Rate 18 03/17/19 05:34 Blood Pressure 158/62 03/17/19 05:34 O2 Sat by Pulse Oximetry (%) 94 L 03/16/19 21:00 Cardiovascular: Yes: Regular Rate and Rhythm Respiratory: Yes: Regular, CTA Bilaterally Gastrointestinal: Yes: Normal Bowel Sounds, Soft. No: Tenderness Labs: CBC, BMP 03/16/19 06:27 03/16/19 06:27 Problem List - Problems (1) Emphysematous cystitis Assessment/Plan: CTAP: large amount of gas in urinary bladder. Possibly 2/2 instrumentation, cannot r/o infectious etiology UA: 2+ LE, 2+ protein Cont IV ceftriaxone 2gm daily F/u urine and blood cx Zofran 4mg prn and IV tylenol prn Dicyclomine 10mg prn for spasms Id and Urology Consults Code(s): N30.80 - OTHER CYSTITIS WITHOUT HEMATURIA (2) Constipation Assessment/Plan: Cont home meds: miralax, docusate Code(s): K59.00 - CONSTIPATION, UNSPECIFIED (3) Diabetes Assessment/Plan: bgm Code(s): E11.9 - TYPE 2 DIABETES MELLITUS WITHOUT COMPLICATIONS (4) HTN (hypertension) Assessment/Plan: meds resumed Selected Entries 03/16/19 03/16/19 03/17/19 15:19 22:00 05:34 Blood Pressure 140/55 L 180/84 H 158/62 Code(s): I10 - ESSENTIAL (PRIMARY) HYPERTENSION
[2019-03-17 10:47] LABS: BASO % 0.5 % (0-2.0); EOS % 2.2 % (0-4.5); HEMATOCRIT 25.9 % (32.4-45.2); HEMOGLOBIN 8.6 GM/dL (10.7-15.3); LYMPH % 6.7 % (8-40); MCH 29.2 pg (25.7-33.7); MCHC 33.1 g/dl (32.0-36.0); MEAN CELL VOLUME 88.3 fl (80-96); MEAN PLT VOLUME 7.7 fl (7.5-11.1); MONO % 15.3 % (3.8-10.2); NEUT % 75.3 % (42.8-82.8); PLATELET COUNT 333 K/MM3 (134-434); RBC 2.93 M/mm3 (3.60-5.2); RDW 13.6 % (11.6-15.6); WHITE BLOOD COUNT 11.4 K/mm3 (4.0-10.0)
[2019-03-17] MEDS: NIFEdipine E.R 60 MG TABLET (UD) PO SCH ×2 (10:47→21:23)
[2019-03-17] MEDS: VALSARTAN 160 MG TABLET (UD) PO SCH (10:47)
[2019-03-17] MEDS: ASPIRIN COATED 81 MG TABLET.EC PO SCH (10:47)
[2019-03-17 11:20] LABS: BILIRUBIN,TOTAL 0.5 mg/dL (0.2-1); BLOOD UREA NITROGEN 44.1 mg/dL (7-18); CALCIUM 8.4 mg/dL (8.5-10.1); CREATININE 1.8 mg/dL (0.55-1.3); POTASSIUM 4.2 mmol/L (3.5-5.1); TOT PROT 6.2 g/dl (6.4-8.2)
[2019-03-17] MEDS: POLYETHYLENE GLYCOL 3350 119 GM BTL PO SCH ×2 (11:46→21:33)
[2019-03-17] MEDS: LIPASE/PROTEASE/AMYLASE 36,000 UNIT CAPSULE PO SCH ×3 (11:46→17:10)
--- NOTE | 2019-03-17 15:24 | PN ---
Progress Note, Physician History of Present Illness: AWAKE, LETHARGIC IN BED DENIES DYSURIA STILL WITH EPISODIC ABDOMINAL SPASM/PAIN AFEBRILE WBC SL ELEVATED BC (-) - Current Medication List Current Medications: Active Medications Acetaminophen (Tylenol -) 650 mg PO Q4H PRN PRN Reason: PAIN LEVEL 6-10 Last Admin: 03/15/19 23:48 Dose: 650 mg Albuterol/Ipratropium (Duoneb -) 1 amp NEB Q6H PRN PRN Reason: SHORTNESS OF BREATH Aspirin (Ecotrin -) 81 mg PO DAILY [facility] Last Admin: 03/17/19 10:47 Dose: 81 mg Atorvastatin Calcium (Lipitor -) 20 mg PO HS [facility] Last Admin: 03/16/19 22:41 Dose: 20 mg Bupropion HCl (Wellbutrin Xl -) 150 mg PO DAILY [facility] Last Admin: 03/17/19 10:47 Dose: 150 mg Dicyclomine HCl (Bentyl -) 10 mg PO Q6H PRN PRN Reason: MUSCLE SPASMS Last Admin: 03/15/19 23:52 Dose: 10 mg Docusate Sodium (Colace -) 100 mg PO HS [facility] Last Admin: 03/16/19 22:40 Dose: 100 mg Donepezil HCl (Aricept -) 10 mg PO HS [facility] Last Admin: 03/16/19 22:41 Dose: 10 mg Heparin Sodium (Porcine) (Heparin -) 5,000 unit SQ TID [facility] Last Admin: 03/17/19 13:23 Dose: 5,000 unit Hydralazine HCl (Apresoline -) 50 mg PO TID [facility] Last Admin: 03/17/19 13:22 Dose: 50 mg Sodium Chloride (Normal Saline -) 1,000 mls @ 42 mls/hr IV ASDIR [facility] Last Admin: 03/16/19 22:43 Dose: 42 mls/hr Ceftriaxone Sodium 2 gm/ (Dextrose) 100 mls @ 100 mls/hr IVPB DAILY [facility] Last Admin: 03/16/19 10:18 Dose: 100 mls/hr Insulin Aspart (Novolog Vial Sliding Scale -) 1 vial SQ TIDAC [facility]; Protocol Last Admin: 03/17/19 13:18 Dose: Not Given Labetalol HCl (Normodyne -) 200 mg PO TID [facility] Last Admin: 03/17/19 13:43 Dose: 200 mg Levothyroxine Sodium (Synthroid -) 25 mcg PO DAILY@0700 [facility] Last Admin: 03/17/19 06:07 Dose: 25 mcg Mirtazapine (Remeron -) 30 mg PO HS [facility] Last Admin: 03/16/19 22:41 Dose: 30 mg Nifedipine (Procardia Xl -) 60 mg PO BID [facility] Last Admin: 03/17/19 10:47 Dose: 60 mg Non-Formulary Medication (Famotidine [Pepcid]) 40 mg PO BID [facility] Non-Formulary Medication (Linzess) 72 mcg PO [facility] Ondansetron HCl (Zofran -) 4 mg PO Q6H PRN PRN Reason: NAUSEA AND/OR VOMITING Last Admin: 03/16/19 22:40 Dose: 4 mg Pancrelipase (Creon Dr 36,000 Units Capsule) 1 cap PO TIDCM [facility] Last Admin: 03/17/19 13:23 Dose: 1 cap Polyethylene Glycol (Miralax (For Daily Use) -) 17 gm PO BID [facility] Last Admin: 03/17/19 11:46 Dose: Not Given Senna (Senna -) 2 tab PO HS PRN PRN Reason: CONSTIPATION Tramadol HCl (Ultram -) 50 mg PO TID PRN PRN Reason: PAIN 1-5 Last Admin: 03/16/19 17:22 Dose: 50 mg Valsartan (Diovan -) 160 mg PO DAILY [facility] Last Admin: 03/17/19 10:47 Dose: 160 mg - Objective Vital Signs: Vital Signs Temperature 97.7 F 03/17/19 14:00 Pulse Rate 68 03/17/19 14:00 Respiratory Rate 18 03/17/19 14:00 Blood Pressure 142/55 L 03/17/19 14:00 O2 Sat by Pulse Oximetry (%) 96 03/17/19 09:00 Constitutional: Yes: No Distress Eyes: Yes: Conjunctiva Clear Cardiovascular: Yes: Regular Rate and Rhythm, S1, S2 Respiratory: Yes: CTA Bilaterally Gastrointestinal: Yes: Normal Bowel Sounds, Soft, Tenderness, Other (MILD DIFFUSE TENDERNESS) Labs: CBC, BMP 03/17/19 10:13 03/17/19 10:13 Assessment/Plan R/O EMPHYSEMATOUS CYSTITIS UTI AZOTEMIA CONTINUE EMPIRIC CEFTRIAXONE
[2019-03-17] MEDS: CEFTRIAXONE 2 GM in DEXTROSE 5%-WATER 100 ML IVPB SCH (16:37)
[2019-03-17] MEDS: SODIUM CHLORIDE 1,000 ML IV SCH (16:38)
[2019-03-17] MEDS: ACETAMINOPHEN 325 MG TABLET (FP) PO PRN (17:09)
--- NOTE | 2019-03-17 18:58 | CONS ---
DATE OF CONSULTATION: DATE OF DICTATION: 03/16/2019 INFECTIOUS DISEASE CONSULTATION HISTORY OF PRESENT ILLNESS: The patient is a 79-year-old female who is evaluated for a urinary tract infection. She was admitted to the hospital on March 15, 2019, with a several-day history of abdominal pain and nausea. According to the patient's daughter, she had been experiencing abdominal spasms and discomfort associated with nausea. She had not had a bowel movement for 3 days. She was evaluated in the emergency room, where a CAT scan of the abdomen and pelvis was performed. She was found to have extensive diverticulosis of the sigmoid colon, without evidence of diverticulitis. Examination of the pelvis showed no pelvic masses, fluid collections or lymphadenopathy. There was air noted within the urinary bladder. At the present time she complains of episodic spasms of the abdomen. She denies any vomiting. No bowel movement. Denies dysuria or hematuria. PAST MEDICAL HISTORY: Positive for parkinsonism and dementia, hypertension, diabetes mellitus, congestive heart failure, azotemia, diverticulosis, history of Klebsiella/E. coli urinary tract infection in December 2018. ALLERGIES: No known allergies. MEDICATIONS: Albuterol, aspirin, Lipitor, baclofen, carbidopa, Pepcid, Synthroid, Remeron, nifedipine, Diovan. SOCIAL HISTORY: She is a nonsmoker, nondrinker. She resides in the community. REVIEW OF SYSTEMS: Neurologic: Positive for parkinsonism and dementia. Cardiac: Negative for chest pain or palpitations. Respiratory: Negative for cough or sputum production. Gastrointestinal: As per HPI. Genitourinary: As per HPI. LABORATORY DATA: White count 9.4, hematocrit 26.3, platelets 332, creatinine 1.6. Urinalysis with 33 white cells. Cultures are pending. PHYSICAL EXAMINATION: General: She is awake. She is not acutely toxic-appearing. Vital Signs: Temperature 97.5. Blood pressure is 194/63. Pulse 62 and regular. Respirations 20 p.m.. HEENT: Sclerae anicteric. Cardiac: Heart sounds S1, S2. A 2/6 pansystolic murmur. Lungs: Clear. Abdomen: There is mild diffuse tenderness to palpation of the lower quadrants with no rebound or rigidity. No tenderness over the urinary bladder. Extremities: Negative for edema. IMPRESSION: 1. Recurrent urinary tract infection. 2. Rule out emphysematous cystitis. 3. Azotemia. 4. Abdominal pain syndrome. 5. Elevated serum creatinine. Suspect abdominal complaints secondary to urinary tract infection. There is air in the urinary bladder without documentation of recent Schultz catheter insertion. Cannot rule out emphysematous cystitis. PLAN: Await culture results. Urology evaluation. Empirical antibiotic coverage with ceftriaxone. Will follow. Thank you for the kind referral. BRANDIN MOE M.D. [id number]
[2019-03-17] MEDS: DONEPEZIL HCL 10 MG TABLET (FP) PO SCH (21:23)
[2019-03-17] MEDS: DOCUSATE SODIUM 100 MG CAPSULE (FP) PO SCH (21:23)
[2019-03-17] MEDS: MIRTAZAPINE 15 MG TABLET (FP) PO SCH (21:24)
[2019-03-17] MEDS: ATORVASTATIN CA 20 MG TABLET (FP) PO SCH (21:24)
[2019-03-18] MEDS: SODIUM CHLORIDE 1,000 ML IV SCH ×3 (05:03→22:35)
[2019-03-18] MEDS: HEPARIN NA (PORCINE) 5,000 UNITS/ML 1ML VIAL SQ SCH ×3 (05:05→22:35)
[2019-03-18] MEDS: hydrALAZINE HCL 50 MG TABLET (FP) PO SCH ×3 (05:05→22:35)
[2019-03-18] MEDS: LABETALOL HCL 200 MG TABLET (FP) PO SCH ×3 (05:05→22:35)
[2019-03-18] MEDS: LEVOTHYROXINE NA 25 MCG TABLET (FP) PO SCH (06:12)
[2019-03-18] MEDS: INSULIN SLIDING SCALE (NOVOLOG) 1 VIAL SQ SCH ×3 (06:12→16:26)
[2019-03-18 07:09] LABS: BASO % 0.6 % (0-2.0); EOS % 2.6 % (0-4.5); HEMATOCRIT 23.5 % (32.4-45.2); LYMPH % 6.2 % (8-40); MCH 29.7 pg (25.7-33.7); MEAN CELL VOLUME 87.3 fl (80-96); MEAN PLT VOLUME 8.2 fl (7.5-11.1); MONO % 9.8 % (3.8-10.2); NEUT % 80.8 % (42.8-82.8); PLATELET COUNT 309 K/MM3 (134-434); RBC 2.69 M/mm3 (3.60-5.2); RDW 13.5 % (11.6-15.6); WHITE BLOOD COUNT 10.8 K/mm3 (4.0-10.0)
[2019-03-18 07:39] LABS: ALBUMIN 2.7 g/dl (3.4-5.0); BILIRUBIN,TOTAL 0.4 mg/dL (0.2-1); BLOOD UREA NITROGEN 49.4 mg/dL (7-18); CALCIUM 8.4 mg/dL (8.5-10.1); POTASSIUM 4.2 mmol/L (3.5-5.1)
[2019-03-18] MEDS: LIPASE/PROTEASE/AMYLASE 36,000 UNIT CAPSULE PO SCH ×3 (08:26→16:48)
[2019-03-18] MEDS ORDERED: DEXTROSE 5%-WATER 100 ML IVPB ONE (08:34)
[2019-03-18] MEDS: CEFTRIAXONE 2 GM in DEXTROSE 5%-WATER 100 ML IVPB SCH (09:13)
[2019-03-18] MEDS: VALSARTAN 160 MG TABLET (UD) PO SCH (09:13)
[2019-03-18] MEDS: POLYETHYLENE GLYCOL 3350 119 GM BTL PO SCH ×2 (09:13→22:35)
[2019-03-18] MEDS: NIFEdipine E.R 60 MG TABLET (UD) PO SCH ×2 (09:13→22:34)
[2019-03-18] MEDS: ASPIRIN COATED 81 MG TABLET.EC PO SCH (09:13)
[2019-03-18] MEDS ORDERED: INSULIN (NOVOLOG) ASPART 100 UNITS/ML 10ML VIAL ONE (11:03)
--- NOTE | 2019-03-18 12:34 | PN ---
Progress Note, Physician Chief Complaint: Vomiting Abdominal Pain Cystitis History of Present Illness: Previous notes and events reviewed sleeping but responsive to verbal and tactile stimuli NAD denies complaints of pain leukocytosis - Current Medication List Current Medications: Active Medications Acetaminophen (Tylenol -) 650 mg PO Q4H PRN PRN Reason: PAIN LEVEL 6-10 Last Admin: 03/17/19 17:09 Dose: 650 mg Albuterol/Ipratropium (Duoneb -) 1 amp NEB Q6H PRN PRN Reason: SHORTNESS OF BREATH Last Admin: 03/18/19 07:46 Dose: 1 amp Aspirin (Ecotrin -) 81 mg PO DAILY [facility] Last Admin: 03/18/19 09:13 Dose: 81 mg Atorvastatin Calcium (Lipitor -) 20 mg PO HS [facility] Last Admin: 03/17/19 21:24 Dose: 20 mg Bupropion HCl (Wellbutrin Xl -) 150 mg PO DAILY [facility] Last Admin: 03/18/19 09:13 Dose: 150 mg Dicyclomine HCl (Bentyl -) 10 mg PO Q6H PRN PRN Reason: MUSCLE SPASMS Last Admin: 03/15/19 23:52 Dose: 10 mg Docusate Sodium (Colace -) 100 mg PO HS [facility] Last Admin: 03/17/19 21:23 Dose: 100 mg Donepezil HCl (Aricept -) 10 mg PO HS [facility] Last Admin: 03/17/19 21:23 Dose: 10 mg Heparin Sodium (Porcine) (Heparin -) 5,000 unit SQ TID [facility] Last Admin: 03/18/19 05:05 Dose: 5,000 unit Hydralazine HCl (Apresoline -) 50 mg PO TID [facility] Last Admin: 03/18/19 05:05 Dose: 50 mg Sodium Chloride (Normal Saline -) 1,000 mls @ 42 mls/hr IV ASDIR [facility] Last Admin: 03/18/19 05:03 Dose: Not Given Ceftriaxone Sodium 2 gm/ (Dextrose) 100 mls @ 100 mls/hr IVPB DAILY [facility] Last Admin: 03/18/19 09:13 Dose: 100 mls/hr Insulin Aspart (Novolog Vial Sliding Scale -) 1 vial SQ TIDAC [facility]; Protocol Last Admin: 03/18/19 11:15 Dose: Not Given Labetalol HCl (Normodyne -) 200 mg PO TID [facility] Last Admin: 03/18/19 05:05 Dose: 200 mg Levothyroxine Sodium (Synthroid -) 25 mcg PO DAILY@0700 [facility] Last Admin: 03/18/19 06:12 Dose: 25 mcg Mirtazapine (Remeron -) 30 mg PO HS [facility] Last Admin: 03/17/19 21:24 Dose: 30 mg Nifedipine (Procardia Xl -) 60 mg PO BID [facility] Last Admin: 03/18/19 09:13 Dose: 60 mg Non-Formulary Medication (Famotidine [Pepcid]) 40 mg PO BID [facility] Non-Formulary Medication (Linzess) 72 mcg PO [facility] Ondansetron HCl (Zofran -) 4 mg PO Q6H PRN PRN Reason: NAUSEA AND/OR VOMITING Last Admin: 03/16/19 22:40 Dose: 4 mg Pancrelipase (Creon Dr 36,000 Units Capsule) 1 cap PO TIDCM [facility] Last Admin: 03/18/19 11:34 Dose: 1 cap Polyethylene Glycol (Miralax (For Daily Use) -) 17 gm PO BID [facility] Last Admin: 03/18/19 09:13 Dose: Not Given Senna (Senna -) 2 tab PO HS PRN PRN Reason: CONSTIPATION Tramadol HCl (Ultram -) 50 mg PO TID PRN PRN Reason: PAIN 1-5 Last Admin: 03/16/19 17:22 Dose: 50 mg Valsartan (Diovan -) 160 mg PO DAILY [facility] Last Admin: 03/18/19 09:13 Dose: 160 mg - Objective Vital Signs: Vital Signs Temperature 98.8 F 03/18/19 10:00 Pulse Rate 62 03/18/19 10:00 Respiratory Rate 18 03/18/19 10:00 Blood Pressure 132/46 L 03/18/19 10:00 O2 Sat by Pulse Oximetry (%) 97 03/18/19 09:00 Constitutional: Yes: No Distress, Calm Eyes: Yes: Conjunctiva Clear HENT: Yes: Atraumatic Cardiovascular: Yes: Regular Rate and Rhythm Respiratory: Yes: Regular, Diminished Gastrointestinal: Yes: Normal Bowel Sounds, Soft Genitourinary: Yes: Incontinence Musculoskeletal: Yes: Muscle Weakness Extremities: Yes: WNL Edema: Yes Edema: RUE: 1+ Neurological: Yes: Alert, Pre-Existing Deficit Psychiatric: Yes: Alert Labs: CBC, BMP 03/18/19 06:15 03/18/19 06:15 Microbiology 03/15/19 06:40 Blood - Peripheral Venous Blood Culture - Preliminary NO GROWTH OBTAINED AFTER 48 HOURS, INCUBATION TO CONTINUE FOR 3 DAYS. 03/15/19 06:27 Blood - Peripheral Venous Blood Culture - Preliminary NO GROWTH OBTAINED AFTER 48 HOURS, INCUBATION TO CONTINUE FOR 3 DAYS. 03/15/19 15:20 Urine - Urine Clean Catch Urine Culture - Final Contaminated: Please Repeat Problem List - Problems (1) Emphysematous cystitis Assessment/Plan: -Urology and ID on board -UC contaminated, repeat ordered -UA 2+ protein, 2+ leuks -leukocytosis -Ceftriaxone -Bentyl -CTAP shows extensive sigmoid diverticulosis with no evidence of diverticulitis , large amount of air noted in the urinary bladder, may be related to recent instrumentation -will need cystoscopy as outpatient - neg Code(s): N30.80 - OTHER CYSTITIS WITHOUT HEMATURIA (2) Intractable abdominal pain Assessment/Plan: -CTAP shows extensive sigmoid diverticulosis with no evidence of diverticulitis , large amount of air noted in the urinary bladder, may be related to recent instrumentation -Bentyl Code(s): R10.9 - UNSPECIFIED ABDOMINAL PAIN (3) JASPER (acute kidney injury) Assessment/Plan: -BUN/Cr 49.4/2.0 -Renal on board Code(s): N17.9 - ACUTE KIDNEY FAILURE, UNSPECIFIED (4) Acute on chronic diastolic (congestive) heart failure Assessment/Plan: -1L fluid restriction -low Na diet -daily weights Code(s): I50.33 - ACUTE ON CHRONIC DIASTOLIC (CONGESTIVE) HEART FAILURE (5) Anemia Assessment/Plan: -Hg 8.0 -monitor Hg daily -transfuse for Hg <7.0 to avoid fluid overload -anemia profile -stool ob Code(s): D64.9 - ANEMIA, UNSPECIFIED (6) Constipation Assessment/Plan: -Senna, Colace, Miralax Code(s): K59.00 - CONSTIPATION, UNSPECIFIED (7) Dementia Assessment/Plan: -Aricept -Head CT scan shows no evidence of acute intracranial hemorrhage, edema, midline shift, mass effect or skull fracture, no CT evidence of acute territorial ischemic changes Code(s): F03.90 - UNSPECIFIED DEMENTIA WITHOUT BEHAVIORAL DISTURBANCE (8) Diabetes Assessment/Plan: -BGM ACHS -ISS -diabetic/low Na diet Code(s): E11.9 - TYPE 2 DIABETES MELLITUS WITHOUT COMPLICATIONS (9) GERD (gastroesophageal reflux disease) Assessment/Plan: -Famotidine Code(s): K21.9 - GASTRO-ESOPHAGEAL REFLUX DISEASE WITHOUT ESOPHAGITIS (10) HLD (hyperlipidemia) Assessment/Plan: -Atorvastatin Code(s): E78.5 - HYPERLIPIDEMIA, UNSPECIFIED (11) HTN (hypertension) Assessment/Plan: -Hydralazine, Nifedipine, Labetolol, Valsartan -diabetic/low Na diet Code(s): I10 - ESSENTIAL (PRIMARY) HYPERTENSION (12) Hyponatremia Assessment/Plan: -Na 135 -monitor Na level daily Code(s): E87.1 - HYPO-OSMOLALITY AND HYPONATREMIA (13) Hypothyroidism Assessment/Plan: -Levothyroxine Code(s): E03.9 - HYPOTHYROIDISM, UNSPECIFIED (14) Parkinson disease Assessment/Plan: -fall precautions -Neurology f/u as outpatient Code(s): G20 - PARKINSON'S DISEASE Assessment/Plan see problem list dvt ppx
--- NOTE | 2019-03-18 15:06 | CON.NEP ---
Consult Consult Specialty:: nephrology Reason for Consultation:: jasper - History of Present Illness History of Present Illness: Patient is a 78 year old female with PMH of DM, HTN, Parkinson's Disease, Dementia, CHF, CKD, Diverticulosis who presents with constipation, nausea, abd pain. Pt lives at home alone wih 24-hour [employer]. She has incontinence at baseline and wear a diaper, is able to ambulate with a walker, can perform most of her ADLs with minimal assistance. On Wednesday, pt was experiencing nausea and abd discomfort. Daughter noticed pt has not had bowel movement for about a week so she double her constipation medications (miralax and docusate) on Wednesday. On Wednesday, pt had multiple large bowel movements and felt better. history from chart. Pt is asleep, opens eyes but wont speak. She has had a rise in creatinine so nephrology is called - History Source History Provided By: Medical Record - Past Medical History [employer]: Yes: Dementia, Peripheral Neuropathy, Parkinson's Cardio/Vascular: Yes: CHF, HTN, Hyperlipdemia Gastrointestinal: Yes: Diverticulosis Psych: Yes: Anxiety Musculoskeletal: Yes: Osteoarthritis Endocrine: Yes: Diabetes Mellitus - Past Surgical History Past Surgical History: Yes: Appendectomy, Cholecystectomy, - Alcohol/Substance Use Hx Alcohol Use: No - Smoking History Smoking history: Never smoked Have you smoked in the past 12 months: No Aproximately how many cigarettes per day: 0 - Social History Usual Living Arrangement: Alone 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 (also has [employer] 6 hours x5 days and 5 hours x2 days) History of Recent Travel: No Home Medications - Allergies Allergies/Adverse Reactions: Allergies Allergy/AdvReac Type Severity Reaction Status Date / Time carbidopa [From Sinemet] AdvReac Verified 03/16/19 14:29 levodopa [From Sinemet] AdvReac Verified 03/16/19 14:29 - Home Medications Home Medications: Ambulatory Orders Aspirin [Adult Aspirin Regimen] 81 mg PO DAILY 09/23/18 Atorvastatin Ca [Lipitor] 20 mg PO HS 09/23/18 Docusate Sodium [Stool Softener] 100 mg PO 09/23/18 Lipase/Protease/Amylase [Elaine Sweeney 36,000 Units Capsule] 1 each PO TID 09/23/18 Mirtazapine 30 mg PO HS 09/23/18 traMADol HCL [Ultram -] 50 mg PO TID PRN 09/23/18 Levothyroxine [Synthroid -] 25 mcg PO DAILY@0700 #30 tablet 09/30/18 Potassium Chloride [K-Dur -] 20 meq PO DAILY #30 tablet.er 09/30/18 Sennosides [Senna -] 2 tab PO HS PRN tablet 09/30/18 Donepezil HCl [Aricept] 10 mg PO DAILY #30 tablet 12/26/18 Famotidine [Pepcid] 40 mg PO BID #30 tablet 12/26/18 Insulin (Levemir) [Levemir Vial] 8 units SQ HS #100 units 12/26/18 Polyethylene Glycol 3350 [Miralax 119 gm Btl -] 17 gm PO BID #1 bottle 12/26/18 Valsartan [Diovan] 160 mg PO DAILY #30 tablet 12/26/18 Benicar 40 mg PO DAILY 03/16/19 Bupropion HCl 150 oz PO DAILY 03/16/19 Furosemide 80 mg PO TID 03/16/19 Hydralazine HCl 50 mg PO TID 03/16/19 Labetalol HCl 200 mg PO TID 03/16/19 Linzess 72 mcg PO HS 03/16/19 Nifedipine ER 60 mg PO BID 03/16/19 Family Medical History Family History: Unable to Obtain Review of Systems Unable to obtain ROS, reason: dementia Nephrology Consult - Height Height: 5 ft 3 in - Weight Weight: 123 lb 6.4 oz - BMI Body Mass Index (BMI): 21.8 - Lab Results CBC,BMP: CBC, BMP 03/18/19 06:15 03/18/19 06:15 Anion Gap: Anion Gap Anion Gap 7 MMOL/L (8-16) L 03/18/19 06:15 - Imaging Chest X-ray: Report Reviewed Cat Scan: Report Reviewed - Physical Examination Vital Signs: Vital Signs Temperature 98.7 F 03/18/19 14:39 Pulse Rate 60 03/18/19 14:39 Respiratory Rate 18 03/18/19 14:39 Blood Pressure 136/49 L 03/18/19 14:39 O2 Sat by Pulse Oximetry (%) 97 03/18/19 09:00 Constitutional: Yes: No Distress Eyes: Yes: Conjunctiva Clear HENT: Yes: Atraumatic, Normocephalic Neck: Yes: Supple, Trachea Midline Cardiovascular: Yes: Regular Rate and Rhythm Respiratory: Yes: CTA Bilaterally Gastrointestinal: Yes: Normal Bowel Sounds Edema: No Edema: LLE: 2+ Wound/Incision: Yes: Well Approximated Neurological: Yes: Lethargy Assessment/Plan IMPRESSION CKD Proteinuria diverticulosis constipation hypoalbuminemia JASPER probably due to volume depletion UTI PLAN keep hydrated cysto as outpatient monitor renal function urine sodium and creat pt already had a proteinuria work up in past- likely has diabetic nephropathy MV
[2019-03-18] MEDS ORDERED: PT OWN MED DRAWER 7, Y5N ONE (16:50)
[2019-03-18] MEDS: ATORVASTATIN CA 20 MG TABLET (FP) PO SCH (22:34)
[2019-03-18] MEDS: MIRTAZAPINE 15 MG TABLET (FP) PO SCH (22:34)
[2019-03-18] MEDS: DONEPEZIL HCL 10 MG TABLET (FP) PO SCH (22:34)
[2019-03-18] MEDS: DOCUSATE SODIUM 100 MG CAPSULE (FP) PO SCH (22:35)
[2019-03-19] MEDS: LABETALOL HCL 200 MG TABLET (FP) PO SCH ×3 (05:42→21:01)
[2019-03-19] MEDS: hydrALAZINE HCL 50 MG TABLET (FP) PO SCH ×3 (05:46→21:01)
[2019-03-19] MEDS: HEPARIN NA (PORCINE) 5,000 UNITS/ML 1ML VIAL SQ SCH ×3 (05:47→21:01)
[2019-03-19] MEDS: LEVOTHYROXINE NA 25 MCG TABLET (FP) PO SCH (06:03)
[2019-03-19] MEDS: INSULIN SLIDING SCALE (NOVOLOG) 1 VIAL SQ SCH ×3 (06:03→16:59)
[2019-03-19 06:44] LABS: HEMATOCRIT 23.9 % (32.4-45.2); HEMOGLOBIN 8.1 GM/dL (10.7-15.3); MCH 29.7 pg (25.7-33.7); MCHC 33.8 g/dl (32.0-36.0); MEAN CELL VOLUME 87.9 fl (80-96); PLATELET COUNT 358 K/MM3 (134-434); RBC 2.72 M/mm3 (3.60-5.2); RDW 13.5 % (11.6-15.6); WHITE BLOOD COUNT 10.4 K/mm3 (4.0-10.0)
[2019-03-19 07:08] LABS: IRON SERUM 15 ug/dL (50-175); TOTAL IRON BINDING CAPACITY 184 ug/dL (250-450)
[2019-03-19 07:13] LABS: ALBUMIN 2.8 g/dl (3.4-5.0); BILIRUBIN,TOTAL 0.3 mg/dL (0.2-1); BLOOD UREA NITROGEN 58.7 mg/dL (7-18); CALCIUM 8.5 mg/dL (8.5-10.1); CREATININE 2.2 mg/dL (0.55-1.3); POTASSIUM 4.8 mmol/L (3.5-5.1); TOT PROT 6.2 g/dl (6.4-8.2)
[2019-03-19] MEDS ORDERED: DEXTROSE 5%-WATER 100 ML IVPB ONE (08:54)
[2019-03-19] MEDS: LIPASE/PROTEASE/AMYLASE 36,000 UNIT CAPSULE PO SCH ×3 (10:25→16:59)
[2019-03-19] MEDS: CEFTRIAXONE 2 GM in DEXTROSE 5%-WATER 100 ML IVPB SCH (10:25)
[2019-03-19] MEDS: ASPIRIN COATED 81 MG TABLET.EC PO SCH (10:26)
[2019-03-19] MEDS: VALSARTAN 160 MG TABLET (UD) PO SCH (10:26)
[2019-03-19] MEDS: NIFEdipine E.R 60 MG TABLET (UD) PO SCH ×2 (10:26→21:01)
[2019-03-19] MEDS: POLYETHYLENE GLYCOL 3350 119 GM BTL PO SCH ×2 (10:27→21:01)
--- NOTE | 2019-03-19 12:10 | PN ---
Progress Note (short form) - Note Progress Note: RENAL Pt is awake and alert c/o pain in right upper quadrant Last Vital Signs Temp Pulse Resp BP Pulse Ox 98.8 F 62 18 141/59 L 97 03/19/19 10:00 03/19/19 10:00 03/19/19 10:00 03/19/19 10:00 03/18/19 21:00 lungs clear cvs s1s2 rr abd soft, tender in RUQ ext no lower extremity edema, has some left upper ext edema neuro a+ox3 CBC, BMP 03/19/19 06:00 03/19/19 06:00 Current Medications Generic Name Dose Route Start Last Admin Trade Name Freq PRN Reason Stop Dose Admin Acetaminophen 650 mg 03/15/19 22:32 03/17/19 17:09 Tylenol - PO 650 mg Q4H PRN Administration PAIN LEVEL 6-10 Albuterol/Ipratropium 1 amp 03/16/19 00:34 03/18/19 07:46 Duoneb - NEB 1 amp Q6H PRN Administration SHORTNESS OF BREATH Aspirin 81 mg 03/16/19 10:00 03/19/19 10:26 Ecotrin - PO 81 mg DAILY [facility] Administration Atorvastatin Calcium 20 mg 03/16/19 22:00 03/18/19 22:34 Lipitor - PO 20 mg HS [facility] Administration Bupropion HCl 150 mg 03/16/19 10:00 03/19/19 10:26 Wellbutrin Xl - PO 150 mg DAILY [facility] Administration Dicyclomine HCl 10 mg 03/15/19 22:37 03/15/19 23:52 Bentyl - PO 10 mg Q6H PRN Administration MUSCLE SPASMS Docusate Sodium 100 mg 03/16/19 22:00 03/18/19 22:35 Colace - PO 100 mg HS [facility] Administration Donepezil HCl 10 mg 03/16/19 22:00 03/18/19 22:34 Aricept - PO 10 mg HS [facility] Administration Heparin Sodium (Porcine) 5,000 unit 03/16/19 06:00 03/19/19 05:47 Heparin - SQ 5,000 unit TID [facility] Administration Hydralazine HCl 50 mg 03/16/19 22:00 03/19/19 05:46 Apresoline - PO 50 mg TID [facility] Administration Sodium Chloride 1,000 mls @ 42 mls/hr 03/15/19 22:45 03/18/19 22:35 Normal Saline - IV Not Given ASDIR [facility] Ceftriaxone Sodium 2 gm/ 100 mls @ 100 mls/hr 03/16/19 10:00 03/19/19 10:25 Dextrose IVPB 100 mls/hr DAILY [facility] Administration Insulin Aspart 1 vial 03/16/19 07:00 03/19/19 11:58 Novolog Vial Sliding Scale - SQ 4 units TIDAC [facility] Administration Protocol Labetalol HCl 200 mg 03/16/19 22:00 03/19/19 05:42 Normodyne - PO 200 mg TID [facility] Administration Levothyroxine Sodium 25 mcg 03/17/19 07:00 03/19/19 06:03 Synthroid - PO 25 mcg DAILY@0700 [facility] Administration Mirtazapine 30 mg 03/16/19 22:00 03/18/19 22:34 Remeron - PO 30 mg HS [facility] Administration Nifedipine 60 mg 03/16/19 22:00 03/19/19 10:26 Procardia Xl - PO 60 mg BID [facility] Administration Non-Formulary Medication 40 mg 03/16/19 22:00 Famotidine [Pepcid] PO BID [facility] Non-Formulary Medication 72 mcg 03/16/19 22:00 Linzess PO HS [facility] Ondansetron HCl 4 mg 03/15/19 22:36 03/16/19 22:40 Zofran - PO 4 mg Q6H PRN Administration NAUSEA AND/OR VOMITING Pancrelipase 1 cap 03/16/19 12:00 03/19/19 11:[address] 36,000 Units Capsule PO 1 cap TIDCM [facility] Administration Polyethylene Glycol 17 gm 03/15/19 22:45 03/19/19 10:27 Miralax (For Daily Use) - PO 17 gm BID [facility] Administration Senna 2 tab 03/16/19 22:00 Senna - PO HS PRN CONSTIPATION Valsartan 160 mg 03/16/19 10:30 03/19/19 10:26 Diovan - PO 160 mg DAILY [facility] Administration IMPRESSION CKD Proteinuria diverticulosis constipation hypoalbuminemia JASPER probably due to volume depletion UTI pleural eff PLAN keep hydrated cysto as outpatient monitor renal function urine sodium and creat pt already had a proteinuria work up in past- likely has diabetic nephropathy echo ?thoracentesis- diagnostic MV
--- NOTE | 2019-03-19 12:17 | PN ---
Progress Note, Physician Chief Complaint: Vomiting Abdominal Pain Cystitis History of Present Illness: Previous notes and events reviewed awake and alert NAD denies complaints of pain leukocytosis showing downtrend complain of nausea - Current Medication List Current Medications: Active Medications Acetaminophen (Tylenol -) 650 mg PO Q4H PRN PRN Reason: PAIN LEVEL 6-10 Last Admin: 03/17/19 17:09 Dose: 650 mg Albuterol/Ipratropium (Duoneb -) 1 amp NEB Q6H PRN PRN Reason: SHORTNESS OF BREATH Last Admin: 03/18/19 07:46 Dose: 1 amp Aspirin (Ecotrin -) 81 mg PO DAILY [facility] Last Admin: 03/19/19 10:26 Dose: 81 mg Atorvastatin Calcium (Lipitor -) 20 mg PO HS [facility] Last Admin: 03/18/19 22:34 Dose: 20 mg Bupropion HCl (Wellbutrin Xl -) 150 mg PO DAILY [facility] Last Admin: 03/19/19 10:26 Dose: 150 mg Dicyclomine HCl (Bentyl -) 10 mg PO Q6H PRN PRN Reason: MUSCLE SPASMS Last Admin: 03/15/19 23:52 Dose: 10 mg Docusate Sodium (Colace -) 100 mg PO HS [facility] Last Admin: 03/18/19 22:35 Dose: 100 mg Donepezil HCl (Aricept -) 10 mg PO HS [facility] Last Admin: 03/18/19 22:34 Dose: 10 mg Heparin Sodium (Porcine) (Heparin -) 5,000 unit SQ TID [facility] Last Admin: 03/19/19 05:47 Dose: 5,000 unit Hydralazine HCl (Apresoline -) 50 mg PO TID [facility] Last Admin: 03/19/19 05:46 Dose: 50 mg Sodium Chloride (Normal Saline -) 1,000 mls @ 42 mls/hr IV ASDIR [facility] Last Admin: 03/18/19 22:35 Dose: Not Given Ceftriaxone Sodium 2 gm/ (Dextrose) 100 mls @ 100 mls/hr IVPB DAILY [facility] Last Admin: 03/19/19 10:25 Dose: 100 mls/hr Insulin Aspart (Novolog Vial Sliding Scale -) 1 vial SQ TIDAC [facility]; Protocol Last Admin: 03/19/19 11:58 Dose: 4 units Labetalol HCl (Normodyne -) 200 mg PO TID [facility] Last Admin: 03/19/19 05:42 Dose: 200 mg Levothyroxine Sodium (Synthroid -) 25 mcg PO DAILY@0700 [facility] Last Admin: 03/19/19 06:03 Dose: 25 mcg Mirtazapine (Remeron -) 30 mg PO HS [facility] Last Admin: 03/18/19 22:34 Dose: 30 mg Nifedipine (Procardia Xl -) 60 mg PO BID [facility] Last Admin: 03/19/19 10:26 Dose: 60 mg Non-Formulary Medication (Famotidine [Pepcid]) 40 mg PO BID [facility] Non-Formulary Medication (Linzess) 72 mcg PO [facility] Ondansetron HCl (Zofran -) 4 mg PO Q6H PRN PRN Reason: NAUSEA AND/OR VOMITING Last Admin: 03/16/19 22:40 Dose: 4 mg Pancrelipase (Creon Dr 36,000 Units Capsule) 1 cap PO TIDCM [facility] Last Admin: 03/19/19 11:59 Dose: 1 cap Polyethylene Glycol (Miralax (For Daily Use) -) 17 gm PO BID [facility] Last Admin: 03/19/19 10:27 Dose: 17 gm Senna (Senna -) 2 tab PO HS PRN PRN Reason: CONSTIPATION Valsartan (Diovan -) 160 mg PO DAILY [facility] Last Admin: 03/19/19 10:26 Dose: 160 mg - Objective Vital Signs: Vital Signs Temperature 98.8 F 03/19/19 10:00 Pulse Rate 62 03/19/19 10:00 Respiratory Rate 18 03/19/19 10:00 Blood Pressure 141/59 L 03/19/19 10:00 O2 Sat by Pulse Oximetry (%) 97 03/18/19 21:00 Constitutional: Yes: No Distress, Calm Eyes: Yes: Conjunctiva Clear HENT: Yes: Atraumatic Cardiovascular: Yes: Regular Rate and Rhythm Respiratory: Yes: Regular, Diminished Gastrointestinal: Yes: Normal Bowel Sounds, Soft Genitourinary: Yes: Incontinence Musculoskeletal: Yes: Muscle Weakness Extremities: Yes: WNL Edema: No Neurological: Yes: Alert, Oriented, Weakness Psychiatric: Yes: Alert, Oriented Labs: CBC, BMP 03/19/19 06:00 03/19/19 06:00 Problem List - Problems (1) Emphysematous cystitis Assessment/Plan: -Urology and ID on board -UC contaminated, repeat ordered -UA 2+ protein, 2+ leuks -leukocytosis -Ceftriaxone -Bentyl -CTAP shows extensive sigmoid diverticulosis with no evidence of diverticulitis , large amount of air noted in the urinary bladder, may be related to recent instrumentation -will need cystoscopy as outpatient -BC neg -Abdominal US Code(s): N30.80 - OTHER CYSTITIS WITHOUT HEMATURIA (2) Intractable abdominal pain Assessment/Plan: -CTAP shows extensive sigmoid diverticulosis with no evidence of diverticulitis , large amount of air noted in the urinary bladder, may be related to recent instrumentation -Bentyl -Abdominal US Code(s): R10.9 - UNSPECIFIED ABDOMINAL PAIN (3) JASPER (acute kidney injury) Assessment/Plan: -BUN/Cr 58.7/2.2 -Renal on board Code(s): N17.9 - ACUTE KIDNEY FAILURE, UNSPECIFIED (4) Acute on chronic diastolic (congestive) heart failure Assessment/Plan: -1L fluid restriction -low Na diet -daily weights Code(s): I50.33 - ACUTE ON CHRONIC DIASTOLIC (CONGESTIVE) HEART FAILURE (5) Anemia Assessment/Plan: -Hg 8.1 -monitor Hg daily -transfuse for Hg <7.0 to avoid fluid overload -anemia profile -stool ob Code(s): D64.9 - ANEMIA, UNSPECIFIED (6) Constipation Assessment/Plan: -Senna, Colace, Miralax Code(s): K59.00 - CONSTIPATION, UNSPECIFIED (7) Dementia Assessment/Plan: -Aricept -Head CT scan shows no evidence of acute intracranial hemorrhage, edema, midline shift, mass effect or skull fracture, no CT evidence of acute territorial ischemic changes Code(s): F03.90 - UNSPECIFIED DEMENTIA WITHOUT BEHAVIORAL DISTURBANCE (8) Diabetes Assessment/Plan: -BGM ACHS -ISS -diabetic/low Na diet Code(s): E11.9 - TYPE 2 DIABETES MELLITUS WITHOUT COMPLICATIONS (9) GERD (gastroesophageal reflux disease) Assessment/Plan: -Famotidine Code(s): K21.9 - GASTRO-ESOPHAGEAL REFLUX DISEASE WITHOUT ESOPHAGITIS (10) HLD (hyperlipidemia) Assessment/Plan: -Atorvastatin Code(s): E78.5 - HYPERLIPIDEMIA, UNSPECIFIED (11) HTN (hypertension) Assessment/Plan: -Hydralazine, Nifedipine, Labetolol, Valsartan -diabetic/low Na diet Code(s): I10 - ESSENTIAL (PRIMARY) HYPERTENSION (12) Hyponatremia Assessment/Plan: -Na 135 -monitor Na level daily Code(s): E87.1 - HYPO-OSMOLALITY AND HYPONATREMIA (13) Hypothyroidism Assessment/Plan: -Levothyroxine Code(s): E03.9 - HYPOTHYROIDISM, UNSPECIFIED (14) Parkinson disease Assessment/Plan: -fall precautions -Neurology f/u as outpatient Code(s): G20 - PARKINSON'S DISEASE Assessment/Plan see problem list dvt ppx
[2019-03-19] MEDS: DICYCLOMINE HCL 10 MG CAPSULE PO PRN ×2 (17:00→20:57)
[2019-03-19] MEDS: SODIUM CHLORIDE 1,000 ML IV SCH (17:49)
[2019-03-19] MEDS: ONDANSETRON 4 MG TABLET PO PRN (20:49)
[2019-03-19] MEDS: DOCUSATE SODIUM 100 MG CAPSULE (FP) PO SCH (21:01)
[2019-03-19] MEDS: DONEPEZIL HCL 10 MG TABLET (FP) PO SCH (21:01)
[2019-03-19] MEDS: ATORVASTATIN CA 20 MG TABLET (FP) PO SCH (21:01)
[2019-03-19] MEDS: MIRTAZAPINE 15 MG TABLET (FP) PO SCH (21:01)
[2019-03-20] MEDS: LEVOTHYROXINE NA 25 MCG TABLET (FP) PO SCH (06:46)
[2019-03-20] MEDS: DICYCLOMINE HCL 10 MG CAPSULE PO PRN (06:46)
[2019-03-20] MEDS: hydrALAZINE HCL 50 MG TABLET (FP) PO SCH ×3 (06:46→21:20)
[2019-03-20] MEDS: HEPARIN NA (PORCINE) 5,000 UNITS/ML 1ML VIAL SQ SCH (06:46)
[2019-03-20] MEDS: LABETALOL HCL 200 MG TABLET (FP) PO SCH ×3 (06:46→21:21)
[2019-03-20] MEDS: INSULIN SLIDING SCALE (NOVOLOG) 1 VIAL SQ SCH ×3 (06:47→17:41)
[2019-03-20] MEDS: SODIUM CHLORIDE 1,000 ML IV SCH (06:47)
[2019-03-20 07:48] LABS: HEMATOCRIT 23.2 % (32.4-45.2); HEMOGLOBIN 7.8 GM/dL (10.7-15.3); MCH 29.7 pg (25.7-33.7); MCHC 33.7 g/dl (32.0-36.0); MEAN PLT VOLUME 7.7 fl (7.5-11.1); PLATELET COUNT 441 K/MM3 (134-434); RBC 2.64 M/mm3 (3.60-5.2); RDW 13.6 % (11.6-15.6)
[2019-03-20 08:02] LABS: ALBUMIN 2.7 g/dl (3.4-5.0); BILIRUBIN,TOTAL 0.3 mg/dL (0.2-1); BLOOD UREA NITROGEN 62.3 mg/dL (7-18); CALCIUM 8.4 mg/dL (8.5-10.1); CREATININE 2.4 mg/dL (0.55-1.3); POTASSIUM 4.7 mmol/L (3.5-5.1)
[2019-03-20] MEDS ORDERED: FUROSEMIDE 40 MG/4 ML INJECTABLE VIAL IVPUSH ONE (08:28)
--- NOTE | 2019-03-20 09:20 | PN ---
Progress Note, Physician - Current Medication List Current Medications: Active Medications Acetaminophen (Tylenol -) 650 mg PO Q4H PRN PRN Reason: PAIN LEVEL 6-10 Last Admin: 03/17/19 17:09 Dose: 650 mg Albuterol/Ipratropium (Duoneb -) 1 amp NEB Q6H PRN PRN Reason: SHORTNESS OF BREATH Last Admin: 03/18/19 07:46 Dose: 1 amp Aspirin (Ecotrin -) 81 mg PO DAILY [facility] Last Admin: 03/19/19 10:26 Dose: 81 mg Atorvastatin Calcium (Lipitor -) 20 mg PO HS [facility] Last Admin: 03/19/19 21:01 Dose: 20 mg Bupropion HCl (Wellbutrin Xl -) 150 mg PO DAILY [facility] Last Admin: 03/19/19 10:26 Dose: 150 mg Dicyclomine HCl (Bentyl -) 10 mg PO Q6H PRN PRN Reason: MUSCLE SPASMS Last Admin: 03/20/19 06:46 Dose: 10 mg Docusate Sodium (Colace -) 100 mg PO HS [facility] Last Admin: 03/19/19 21:01 Dose: 100 mg Donepezil HCl (Aricept -) 10 mg PO HS [facility] Last Admin: 03/19/19 21:01 Dose: 10 mg Heparin Sodium (Porcine) (Heparin -) 5,000 unit SQ TID [facility] Last Admin: 03/20/19 06:46 Dose: 5,000 unit Hydralazine HCl (Apresoline -) 50 mg PO TID [facility] Last Admin: 03/20/19 06:46 Dose: 50 mg Sodium Chloride (Normal Saline -) 1,000 mls @ 42 mls/hr IV ASDIR [facility] Last Admin: 03/20/19 06:47 Dose: Not Given Ceftriaxone Sodium 2 gm/ (Dextrose) 100 mls @ 100 mls/hr IVPB DAILY [facility] Last Admin: 03/19/19 10:25 Dose: 100 mls/hr Insulin Aspart (Novolog Vial Sliding Scale -) 1 vial SQ TIDAC [facility]; Protocol Last Admin: 03/20/19 06:47 Dose: 2 units Labetalol HCl (Normodyne -) 200 mg PO TID [facility] Last Admin: 03/20/19 06:46 Dose: 200 mg Levothyroxine Sodium (Synthroid -) 25 mcg PO DAILY@0700 [facility] Last Admin: 03/20/19 06:46 Dose: 25 mcg Mirtazapine (Remeron -) 30 mg PO HS [facility] Last Admin: 03/19/19 21:01 Dose: 30 mg Nifedipine (Procardia Xl -) 60 mg PO BID [facility] Last Admin: 03/19/19 21:01 Dose: 60 mg Non-Formulary Medication (Linzess) 72 mcg PO HS [facility] Ondansetron HCl (Zofran -) 4 mg PO Q6H PRN PRN Reason: NAUSEA AND/OR VOMITING Last Admin: 03/19/19 20:49 Dose: 4 mg Pancrelipase (Creon Dr 36,000 Units Capsule) 1 cap PO TIDCM [facility] Last Admin: 03/19/19 16:59 Dose: 1 cap Pantoprazole Sodium (Protonix Iv) 40 mg IVPUSH DAILY [facility] Polyethylene Glycol (Miralax (For Daily Use) -) 17 gm PO BID [facility] Last Admin: 03/19/19 21:01 Dose: 17 gm Senna (Senna -) 2 tab PO HS PRN PRN Reason: CONSTIPATION Last Admin: 03/19/19 20:51 Dose: 2 tab Valsartan (Diovan -) 160 mg PO DAILY [facility] Last Admin: 03/19/19 10:26 Dose: 160 mg - Objective Vital Signs: Vital Signs Temperature 98 F 03/20/19 06:00 Pulse Rate 62 03/20/19 06:00 Respiratory Rate 18 03/20/19 06:00 Blood Pressure 143/57 L 03/20/19 06:00 O2 Sat by Pulse Oximetry (%) 97 03/19/19 21:00 Labs: CBC, BMP 03/20/19 06:50 03/20/19 06:50 Problem List - Problems (1) Emphysematous cystitis Code(s): N30.80 - OTHER CYSTITIS WITHOUT HEMATURIA (2) Constipation Code(s): K59.00 - CONSTIPATION, UNSPECIFIED (3) Diabetes Code(s): E11.9 - TYPE 2 DIABETES MELLITUS WITHOUT COMPLICATIONS (4) HTN (hypertension) Code(s): I10 - ESSENTIAL (PRIMARY) HYPERTENSION
[2019-03-20] MEDS ORDERED: DEXTROSE 5%-WATER 100 ML IVPB ONE (09:39)
--- NOTE | 2019-03-20 09:40 | CON.GI ---
Consult Consult Specialty:: GI Referred by:: Audrey Pastrana NP Reason for Consultation:: Anemia - History of Present Illness History of Present Illness: Patient is a 79 y/o female with DM, HTN, Parkinson's Disease, Dementia, CHF, CKD , Diverticulosis. Consult was placed for anemia. On admission Hg 9.1 but slowly began to trend down and is currently 7.8. Patient was also complaining of nausea, constipation, and abdominal discomfort on admission. She states pain is associated with eating but also states having poor appetite. She takes As Denies rectal bleeding or melena. 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, Peripheral Neuropathy, Parkinson's Cardio/Vascular: Yes: CHF, HTN, Hyperlipdemia Gastrointestinal: Yes: Diverticulosis Psych: Yes: Anxiety Musculoskeletal: Yes: Osteoarthritis Endocrine: Yes: Diabetes Mellitus - Past Surgical History Past Surgical History: Yes: Appendectomy, Cholecystectomy, - Alcohol/Substance Use Hx Alcohol Use: No - Smoking History Smoking history: Never smoked Have you smoked in the past 12 months: No Aproximately how many cigarettes per day: 0 - Social History Usual Living Arrangement: Alone 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 (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) History of Recent Travel: No Home Medications - Allergies Allergies/Adverse Reactions: Allergies Allergy/AdvReac Type Severity Reaction Status Date / Time carbidopa [From Sinemet] AdvReac Verified 03/16/19 14:29 levodopa [From Sinemet] AdvReac Verified 03/16/19 14:29 - Home Medications Home Medications: Ambulatory Orders Aspirin [Adult Aspirin Regimen] 81 mg PO DAILY 09/23/18 Atorvastatin Ca [Lipitor] 20 mg PO HS 09/23/18 Docusate Sodium [Stool Softener] 100 mg PO HS 09/23/18 Lipase/Protease/Amylase [Elaine Sweeney 36,000 Units Capsule] 1 each PO TID 09/23/18 Mirtazapine 30 mg PO HS 09/23/18 traMADol HCL [Ultram -] 50 mg PO TID PRN 09/23/18 Levothyroxine [Synthroid -] 25 mcg PO DAILY@0700 #30 tablet 09/30/18 Potassium Chloride [K-Dur -] 20 meq PO DAILY #30 tablet.er 09/30/18 Sennosides [Senna -] 2 tab PO HS PRN tablet 09/30/18 Donepezil HCl [Aricept] 10 mg PO DAILY #30 tablet 12/26/18 Famotidine [Pepcid] 40 mg PO BID #30 tablet 12/26/18 Insulin (Levemir) [Levemir Vial] 8 units SQ HS #100 units 12/26/18 Polyethylene Glycol 3350 [Miralax 119 gm Btl -] 17 gm PO BID #1 bottle 12/26/18 Valsartan [Diovan] 160 mg PO DAILY #30 tablet 12/26/18 Benicar 40 mg PO DAILY 03/16/19 Bupropion HCl 150 oz PO DAILY 03/16/19 Furosemide 80 mg PO TID 03/16/19 Hydralazine HCl 50 mg PO TID 03/16/19 Labetalol HCl 200 mg PO TID 03/16/19 Linzess 72 mcg PO HS 03/16/19 Nifedipine ER 60 mg PO BID 03/16/19 Review of Systems - Review of Systems Constitutional: reports: Loss of Appetite Eyes: reports: No Symptoms HENT: reports: No Symptoms Neck: reports: No Symptoms Cardiovascular: reports: No Symptoms Respiratory: reports: No Symptoms Gastrointestinal: reports: Abdominal Pain, Nausea Genitourinary: reports: No Symptoms Breasts: reports: No Symptoms Reported Musculoskeletal: reports: No Symptoms Integumentary: reports: No Symptoms Neurological: reports: No Symptoms Endocrine: reports: No Symptoms Hematology/Lymphatic: reports: No Symptoms Psychiatric: reports: No Symptoms Physical Exam-GI Vital Signs: Vital Signs Temperature 98 F 03/20/19 06:00 Pulse Rate 62 03/20/19 06:00 Respiratory Rate 18 03/20/19 06:00 Blood Pressure 143/57 L 03/20/19 06:00 O2 Sat by Pulse Oximetry (%) 97 03/19/19 21:00 Constitutional: Yes: No Distress, Calm Eyes: Yes: Conjunctiva Clear HENT: Yes: Atraumatic Cardiovascular: Yes: Regular Rate and Rhythm Respiratory: Yes: Regular, CTA Bilaterally Gastrointestinal Inspection: Yes: WNL. No: Ascites, Distention, Hernia, Scars, Other ...Auscultate: Yes: Normoactive Bowel Sounds. No: Hyperactive Bowel Sounds, Hypoactive Bowel Sounds, No Bowel Sounds, Other ...Palpate: Yes: Soft, Tenderness (mid abdomen). No: Firm/Rigid, Guarding, Hepatomegaly, Mass, Pulsatile Mass, Splenomegaly, Tenderness, Epigastium, Tenderness, Rebound, Other ...Percussion: Yes: Tympanitic. No: Dullness, Fluid Wave, Other Neurological: Yes: Alert, Oriented Psychiatric: Yes: Alert, Oriented Labs: CBC, BMP 03/20/19 06:50 03/20/19 06:50 Home Medication List Medication Instructions Recorded Confirmed Type Aspirin [Adult Aspirin Regimen] 81 mg PO DAILY 09/23/18 03/15/19 History Atorvastatin Ca [Lipitor] 20 mg PO HS 09/23/18 03/15/19 History Docusate Sodium [Stool Softener] 100 mg PO HS 09/23/18 03/15/19 History Lipase/Protease/Amylase [Creon Dr 1 each PO TID 09/23/18 03/15/19 History 36,000 Units Capsule] Mirtazapine 30 mg PO HS 09/23/18 03/15/19 History traMADol HCL [Ultram -] 50 mg PO TID PRN 09/23/18 03/15/19 History Benicar 40 mg PO DAILY 03/16/19 03/16/19 History Bupropion HCl 150 oz PO DAILY 03/16/19 03/16/19 History Furosemide 80 mg PO TID 03/16/19 03/16/19 History Hydralazine HCl 50 mg PO TID 03/16/19 03/16/19 History Labetalol HCl 200 mg PO TID 03/16/19 03/16/19 History Linzess 72 mcg PO HS 03/16/19 03/16/19 History Nifedipine ER 60 mg PO BID 03/16/19 03/16/19 History Active Medications Generic Name Dose Route Start Last Admin Trade Name Freq PRN Reason Stop Dose Admin Acetaminophen 650 mg 03/15/19 22:32 03/17/19 17:09 Tylenol - PO 650 mg Q4H PRN Administration PAIN LEVEL 6-10 Albuterol/Ipratropium 1 amp 03/16/19 00:34 03/18/19 07:46 Duoneb - NEB 1 amp Q6H PRN Administration SHORTNESS OF BREATH Aspirin 81 mg 03/16/19 10:00 03/19/19 10:26 Ecotrin - PO 81 mg DAILY [facility] Administration Atorvastatin Calcium 20 mg 03/16/19 22:00 03/19/19 21:01 Lipitor - PO 20 mg HS [facility] Administration Bupropion HCl 150 mg 03/16/19 10:00 03/19/19 10:26 Wellbutrin Xl - PO 150 mg DAILY [facility] Administration Dicyclomine HCl 10 mg 03/15/19 22:37 03/20/19 06:46 Bentyl - PO 10 mg Q6H PRN Administration MUSCLE SPASMS Docusate Sodium 100 mg 03/16/19 22:00 03/19/19 21:01 Colace - PO 100 mg HS [facility] Administration Donepezil HCl 10 mg 03/16/19 22:00 03/19/19 21:01 Aricept - PO 10 mg HS [facility] Administration Heparin Sodium (Porcine) 5,000 unit 03/16/19 06:00 03/20/19 06:46 Heparin - SQ 5,000 unit TID [facility] Administration Hydralazine HCl 50 mg 03/16/19 22:00 03/20/19 06:46 Apresoline - PO 50 mg TID [facility] Administration Sodium Chloride 1,000 mls @ 42 mls/hr 03/15/19 22:45 03/20/19 06:47 Normal Saline - IV Not Given ASDIR [facility] Ceftriaxone Sodium 2 gm/ 100 mls @ 100 mls/hr 03/16/19 10:00 03/19/19 10:25 Dextrose IVPB 100 mls/hr DAILY [facility] Administration Insulin Aspart 1 vial 03/16/19 07:00 03/20/19 06:47 Novolog Vial Sliding Scale - SQ 2 units TIDAC [facility] Administration Protocol Labetalol HCl 200 mg 03/16/19 22:00 03/20/19 06:46 Normodyne - PO 200 mg TID [facility] Administration Levothyroxine Sodium 25 mcg 03/17/19 07:00 03/20/19 06:46 Synthroid - PO 25 mcg DAILY@0700 [facility] Administration Mirtazapine 30 mg 03/16/19 22:00 03/19/19 21:01 Remeron - PO 30 mg HS [facility] Administration Nifedipine 60 mg 03/16/19 22:00 03/19/19 21:01 Procardia Xl - PO 60 mg BID [facility] Administration Non-Formulary Medication 72 mcg 03/16/19 22:00 Linzess PO HS [facility] Ondansetron HCl 4 mg 03/15/19 22:36 03/19/19 20:49 Zofran - PO 4 mg Q6H PRN Administration NAUSEA AND/OR VOMITING Pancrelipase 1 cap 03/16/19 12:00 03/19/19 16:[address] 36,000 Units Capsule PO 1 cap TIDCM [facility] Administration Pantoprazole Sodium 40 mg 03/20/19 10:00 Protonix Iv IVPUSH DAILY [facility] Polyethylene Glycol 17 gm 03/15/19 22:45 03/19/19 21:01 Miralax (For Daily Use) - PO 17 gm BID [facility] Administration Senna 2 tab 03/16/19 22:00 03/19/19 20:51 Senna - PO 2 tab HS PRN Administration CONSTIPATION Valsartan 160 mg 03/16/19 10:30 03/19/19 10:26 Diovan - PO 160 mg DAILY [facility] Administration Imaging - Results Cat Scan: Report Reviewed Problem List - Problems (1) Epigastric pain Assessment/Plan: associated with anemia, r/o peptic ulcer disease R> will need EGD once medically cleared Pantoprazole 40mg bid Reglan 5mg 30 min ac Code(s): R10.13 - EPIGASTRIC PAIN (2) Anemia Assessment/Plan: >Hg 7.9 > transfuse with PRBC until Hg >8.0 >Pantoprazole >consider holding Aspirin >will need EGD to r/o ulcer as source of anemia >Cardiology clearance prior to EGD due to hx of CHF Code(s): D64.9 - ANEMIA, UNSPECIFIED
[2019-03-20] MEDS: CEFTRIAXONE 2 GM in DEXTROSE 5%-WATER 100 ML IVPB SCH (10:25)
[2019-03-20] MEDS: LIPASE/PROTEASE/AMYLASE 36,000 UNIT CAPSULE PO SCH ×3 (10:31→17:42)
[2019-03-20] MEDS: VALSARTAN 160 MG TABLET (UD) PO SCH (10:31)
[2019-03-20] MEDS: POLYETHYLENE GLYCOL 3350 119 GM BTL PO SCH ×2 (10:33→21:20)
[2019-03-20] MEDS: NIFEdipine E.R 60 MG TABLET (UD) PO SCH ×2 (10:34→21:21)
[2019-03-20] MEDS: ASPIRIN COATED 81 MG TABLET.EC PO SCH (10:34)
[2019-03-20] MEDS: PANTOPRAZOLE SODIUM 40 MG VIAL IVPUSH SCH (10:37)
[2019-03-20] MEDS ORDERED: SODIUM CHLORIDE 0.45%/POT 20 MEQ/1,000 ML INFUS.BAG IV SCH (11:30)
--- NOTE | 2019-03-20 14:55 | CON.CARD ---
Consult Consult Specialty:: Cardiology Referred by:: Malorie Reason for Consultation:: Cardiac clearance - History of Present Illness Chief Complaint: GIB History of Present Illness: 79 OMS,DM,HTN,CHOL, PARKINSON,DIVERTICS,GIB,HFpEF, now admitted with GIB for a w /u. 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 Cardio/Vascular: Yes: CHF, HTN, Hyperlipdemia Gastrointestinal: Yes: Diverticulosis Psych: Yes: Anxiety Musculoskeletal: Yes: Osteoarthritis Endocrine: Yes: Diabetes Mellitus - Past Surgical History Past Surgical History: Yes: Appendectomy, Cholecystectomy, - Alcohol/Substance Use Hx Alcohol Use: No - Smoking History Smoking history: Never smoked Have you smoked in the past 12 months: No Aproximately how many cigarettes per day: 0 - Social History Usual Living Arrangement: Alone 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 (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) History of Recent Travel: No Home Medications - Allergies Allergies/Adverse Reactions: Allergies Allergy/AdvReac Type Severity Reaction Status Date / Time carbidopa [From Sinemet] AdvReac Verified 03/16/19 14:29 levodopa [From Sinemet] AdvReac Verified 03/16/19 14:29 - Home Medications Home Medications: Ambulatory Orders Aspirin [Adult Aspirin Regimen] 81 mg PO DAILY 09/23/18 Atorvastatin Ca [Lipitor] 20 mg PO HS 09/23/18 Docusate Sodium [Stool Softener] 100 mg PO HS 09/23/18 Lipase/Protease/Amylase [Elaine Sweeney 36,000 Units Capsule] 1 each PO TID 09/23/18 Mirtazapine 30 mg PO HS 09/23/18 traMADol HCL [Ultram -] 50 mg PO TID PRN 09/23/18 Levothyroxine [Synthroid -] 25 mcg PO DAILY@0700 #30 tablet 09/30/18 Potassium Chloride [K-Dur -] 20 meq PO DAILY #30 tablet.er 09/30/18 Sennosides [Senna -] 2 tab PO HS PRN tablet 09/30/18 Donepezil HCl [Aricept] 10 mg PO DAILY #30 tablet 12/26/18 Famotidine [Pepcid] 40 mg PO BID #30 tablet 12/26/18 Insulin (Levemir) [Levemir Vial] 8 units SQ HS #100 units 12/26/18 Polyethylene Glycol 3350 [Miralax 119 gm Btl -] 17 gm PO BID #1 bottle 12/26/18 Valsartan [Diovan] 160 mg PO DAILY #30 tablet 12/26/18 Benicar 40 mg PO DAILY 03/16/19 Bupropion HCl 150 oz PO DAILY 03/16/19 Furosemide 80 mg PO TID 03/16/19 Hydralazine HCl 50 mg PO TID 03/16/19 Labetalol HCl 200 mg PO TID 03/16/19 Linzess 72 mcg PO HS 03/16/19 Nifedipine ER 60 mg PO BID 03/16/19 Review of Systems - Review of Systems Constitutional: reports: Lethargy, Malaise Eyes: reports: No Symptoms HENT: reports: No Symptoms Neck: reports: No Symptoms Cardiovascular: reports: No Symptoms Respiratory: reports: No Symptoms Gastrointestinal: reports: Bloating Genitourinary: reports: No Symptoms Breasts: reports: No Symptoms Reported Integumentary: reports: No Symptoms Neurological: reports: No Symptoms Endocrine: reports: No Symptoms Hematology/Lymphatic: reports: Other (Anemia) Psychiatric: reports: No Symptoms Vital Signs: Vital Signs Temperature 98.1 F 03/20/19 14:46 Pulse Rate 56 L 03/20/19 14:46 Respiratory Rate 20 03/20/19 14:46 Blood Pressure 127/49 L 03/20/19 14:46 O2 Sat by Pulse Oximetry (%) 97 03/20/19 09:00 Constitutional: Yes: Well Nourished, No Distress, Calm Eyes: Yes: WNL, Conjunctiva Clear, EOM Intact HENT: Yes: WNL, Atraumatic, Normocephalic Neck: Yes: WNL, Supple, Trachea Midline Respiratory: Yes: WNL, Regular, CTA Bilaterally Gastrointestinal: Yes: WNL, Normal Bowel Sounds, Soft Renal/: Yes: WNL Cardiovascular: Yes: WNL, Regular Rate and Rhythm JVD: No Carotid Bruit: No PMI: Non-Displaced Heart Sounds: Yes: S1, S2 Murmur: Yes: Systolic Murmur, Grade 2 Musculoskeletal: Yes: Joint Stiffness Extremities: Yes: WNL Edema: No Peripheral Pulses WNL: No Peripheral Pulses: 1+ Left Carotid, 1+ Right Carotid, 1+ Left Femoral, 1+ Right Femoral, 1+ Left Popliteal, 1+ Right Popliteal, 1+ Left Doralis Pedis, 1+ Right Dorsalis Pedis Neurological: Yes: WNL, Alert Psychiatric: Yes: WNL, Alert - Other Data Labs, Other Data: CBC, BMP 03/20/19 06:50 03/20/19 06:50 Assessment/Plan 79 OMS,DM,HTN,CHOL, PARKINSON,DIVERTICS,GIB,HFpEF, now admitted with GIB for a w /u. Pt in in NAD No evidence of ischemia nor ACS. No CHF. No need for cardiac monitoring. Pt in NSR May proceed with GI w/u as needed. Pls call us PRN.
--- NOTE | 2019-03-20 17:06 | PN ---
Progress Note, Physician History of Present Illness: Pt seen and examined at bedside. She is awake and alert. She denies shortness of breath or lower ext edema. - Current Medication List Current Medications: Active Medications Acetaminophen (Tylenol -) 650 mg PO Q4H PRN PRN Reason: PAIN LEVEL 6-10 Last Admin: 03/17/19 17:09 Dose: 650 mg Albuterol/Ipratropium (Duoneb -) 1 amp NEB Q6H PRN PRN Reason: SHORTNESS OF BREATH Last Admin: 03/18/19 07:46 Dose: 1 amp Atorvastatin Calcium (Lipitor -) 20 mg PO HS [facility] Last Admin: 03/19/19 21:01 Dose: 20 mg Bupropion HCl (Wellbutrin Xl -) 150 mg PO DAILY [facility] Last Admin: 03/20/19 10:32 Dose: 150 mg Dicyclomine HCl (Bentyl -) 10 mg PO Q6H PRN PRN Reason: MUSCLE SPASMS Last Admin: 03/20/19 06:46 Dose: 10 mg Docusate Sodium (Colace -) 100 mg PO [facility] Last Admin: 03/19/19 21:01 Dose: 100 mg Donepezil HCl (Aricept -) 10 mg PO [facility] Last Admin: 03/19/19 21:01 Dose: 10 mg Hydralazine HCl (Apresoline -) 50 mg PO TID [facility] Last Admin: 03/20/19 14:06 Dose: 50 mg Ceftriaxone Sodium 2 gm/ (Dextrose) 100 mls @ 100 mls/hr IVPB DAILY [facility] Last Admin: 03/20/19 10:25 Dose: 100 mls/hr Potassium Chloride/Sodium Chloride (1/2ns+20meq Kcl) 20 meq in 1,000 mls @ 100 mls/hr IV ASDIR [facility] Last Admin: 03/20/19 14:06 Dose: 100 mls/hr Insulin Aspart (Novolog Vial Sliding Scale -) 1 vial SQ TIDAC [facility]; Protocol Last Admin: 03/20/19 11:42 Dose: 2 units Labetalol HCl (Normodyne -) 200 mg PO TID [facility] Last Admin: 03/20/19 14:06 Dose: 200 mg Levothyroxine Sodium (Synthroid -) 25 mcg PO DAILY@0700 [facility] Last Admin: 03/20/19 06:46 Dose: 25 mcg Mirtazapine (Remeron -) 30 mg PO HS [facility] Last Admin: 03/19/19 21:01 Dose: 30 mg Nifedipine (Procardia Xl -) 60 mg PO BID [facility] Last Admin: 03/20/19 10:34 Dose: 60 mg Non-Formulary Medication (Linzess) 72 mcg PO HS [facility] Ondansetron HCl (Zofran -) 4 mg PO Q6H PRN PRN Reason: NAUSEA AND/OR VOMITING Last Admin: 03/19/19 20:49 Dose: 4 mg Pancrelipase (Creon Dr 36,000 Units Capsule) 1 cap PO TIDCM [facility] Last Admin: 03/20/19 14:11 Dose: 1 cap Pantoprazole Sodium (Protonix Iv) 40 mg IVPUSH DAILY [facility] Last Admin: 03/20/19 10:37 Dose: 40 mg Polyethylene Glycol (Miralax (For Daily Use) -) 17 gm PO BID [facility] Last Admin: 03/20/19 10:33 Dose: 17 gm Senna (Senna -) 2 tab PO HS PRN PRN Reason: CONSTIPATION Last Admin: 03/19/19 20:51 Dose: 2 tab Valsartan (Diovan -) 160 mg PO DAILY [facility] Last Admin: 03/20/19 10:31 Dose: 160 mg - Objective Vital Signs: Vital Signs Temperature 98.1 F 03/20/19 14:46 Pulse Rate 56 L 03/20/19 14:46 Respiratory Rate 20 03/20/19 14:46 Blood Pressure 127/49 L 03/20/19 14:46 O2 Sat by Pulse Oximetry (%) 97 03/20/19 09:00 Constitutional: Yes: Calm Eyes: Yes: Conjunctiva Clear HENT: Yes: Atraumatic Neck: Yes: Supple Cardiovascular: Yes: S1, S2 Respiratory: Yes: CTA Bilaterally Gastrointestinal: Yes: Soft Genitourinary: Yes: WNL Musculoskeletal: Yes: WNL Edema: No Neurological: Yes: Oriented Psychiatric: Yes: Oriented Labs: CBC, BMP 03/20/19 06:50 03/20/19 06:50 Assessment/Plan Current Medications Generic Name Dose Route Start Last Admin Trade Name Freq PRN Reason Stop Dose Admin Acetaminophen 650 mg 03/15/19 22:32 03/17/19 17:09 Tylenol - PO 650 mg Q4H PRN Administration PAIN LEVEL 6-10 Albuterol/Ipratropium 1 amp 03/16/19 00:34 03/18/19 07:46 Duoneb - NEB 1 amp Q6H PRN Administration SHORTNESS OF BREATH Atorvastatin Calcium 20 mg 03/16/19 22:00 03/19/19 21:01 Lipitor - PO 20 mg HS JOYCE Administration Bupropion HCl 150 mg 03/16/19 10:00 03/20/19 10:32 Wellbutrin Xl - PO 150 mg DAILY JOYCE Administration Dicyclomine HCl 10 mg 03/15/19 22:37 03/20/19 06:46 Bentyl - PO 10 mg Q6H PRN Administration MUSCLE SPASMS Docusate Sodium 100 mg 03/16/19 22:00 03/19/19 21:01 Colace - PO 100 mg HS JOYCE Administration Donepezil HCl 10 mg 03/16/19 22:00 03/19/19 21:01 Aricept - PO 10 mg HS JOYCE Administration Hydralazine HCl 50 mg 03/16/19 22:00 03/20/19 14:06 Apresoline - PO 50 mg TID JOYCE Administration Ceftriaxone Sodium 2 gm/ 100 mls @ 100 mls/hr 03/16/19 10:00 03/20/19 10:25 Dextrose IVPB 100 mls/hr DAILY JOYCE Administration Potassium Chloride/Sodium Chloride 20 meq in 1,000 mls @ 100 mls/hr 03/20/19 11:30 03/20/19 14:06 1/2ns+20meq Kcl IV 100 mls/hr ASDIR JOYCE Administration Insulin Aspart 1 vial 03/16/19 07:00 03/20/19 11:42 Novolog Vial Sliding Scale - SQ 2 units TIDAC JOYCE Administration Protocol Labetalol HCl 200 mg 03/16/19 22:00 03/20/19 14:06 Normodyne - PO 200 mg TID JOYCE Administration Levothyroxine Sodium 25 mcg 03/17/19 07:00 03/20/19 06:46 Synthroid - PO 25 mcg DAILY@0700 JOYCE Administration Mirtazapine 30 mg 03/16/19 22:00 03/19/19 21:01 Remeron - PO 30 mg HS JOYCE Administration Nifedipine 60 mg 03/16/19 22:00 03/20/19 10:34 Procardia Xl - PO 60 mg BID JOYCE Administration Non-Formulary Medication 72 mcg 03/16/19 22:00 Linzess PO HS JOYCE Ondansetron HCl 4 mg 03/15/19 22:36 03/19/19 20:49 Zofran - PO 4 mg Q6H PRN Administration NAUSEA AND/OR VOMITING Pancrelipase 1 cap 03/16/19 12:00 03/20/19 14:[address] 36,000 Units Capsule PO 1 cap TIDCM JOYCE Administration Pantoprazole Sodium 40 mg 03/20/19 10:00 03/20/19 10:37 Protonix Iv IVPUSH 40 mg DAILY JOYCE Administration Polyethylene Glycol 17 gm 03/15/19 22:45 03/20/19 10:33 Miralax (For Daily Use) - PO 17 gm BID JOYCE Administration Senna 2 tab 03/16/19 22:00 03/19/19 20:51 Senna - PO 2 tab HS PRN Administration CONSTIPATION Valsartan 160 mg 03/16/19 10:30 03/20/19 10:31 Diovan - PO 160 mg DAILY JOYCE Administration Impression 1. JASPER 2. CKD 3. HLD 4.diverticulosis 5. HTN 6. DM 7. proteinuria 8. hypoalbuminemia 9. UTI 10. 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
[2019-03-20] MEDS ORDERED: LABETALOL HCL 100 MG TABLET (FP) ONE (21:17)
[2019-03-20] MEDS: DOCUSATE SODIUM 100 MG CAPSULE (FP) PO SCH (21:20)
[2019-03-20] MEDS: ATORVASTATIN CA 20 MG TABLET (FP) PO SCH (21:20)
[2019-03-20] MEDS: MIRTAZAPINE 15 MG TABLET (FP) PO SCH (21:20)
[2019-03-20] MEDS: DONEPEZIL HCL 10 MG TABLET (FP) PO SCH (21:20)
[2019-03-21] MEDS ORDERED: LABETALOL HCL 100 MG TABLET (FP) ONE (05:19)
[2019-03-21] MEDS: INSULIN SLIDING SCALE (NOVOLOG) 1 VIAL SQ SCH ×3 (06:39→17:46)
[2019-03-21] MEDS: LEVOTHYROXINE NA 25 MCG TABLET (FP) PO SCH (06:41)
[2019-03-21] MEDS: LABETALOL HCL 200 MG TABLET (FP) PO SCH ×4 (06:41→23:07)
[2019-03-21] MEDS: hydrALAZINE HCL 50 MG TABLET (FP) PO SCH ×4 (06:41→23:04)
[2019-03-21] MEDS ORDERED: PT OWN MED DRAWER 7, Y5N ONE ×2 (08:16→17:28)
[2019-03-21] MEDS: LIPASE/PROTEASE/AMYLASE 36,000 UNIT CAPSULE PO SCH ×3 (08:27→17:46)
[2019-03-21] MEDS ORDERED: DEXTROSE 5%-WATER 100 ML IVPB ONE (09:57)
[2019-03-21] MEDS: POLYETHYLENE GLYCOL 3350 119 GM BTL PO SCH ×3 (09:59→23:07)
[2019-03-21] MEDS: VALSARTAN 160 MG TABLET (UD) PO SCH (10:00)
[2019-03-21] MEDS: CEFTRIAXONE 2 GM in DEXTROSE 5%-WATER 100 ML IVPB SCH (10:00)
[2019-03-21] MEDS: NIFEdipine E.R 60 MG TABLET (UD) PO SCH ×3 (10:00→23:07)
[2019-03-21] MEDS: PANTOPRAZOLE SODIUM 40 MG VIAL IVPUSH SCH (10:11)
--- NOTE | 2019-03-21 10:43 | PN ---
Progress Note, Physician Chief Complaint: Vomiting Abdominal Pain Cystitis History of Present Illness: Previous notes and events reviewed sleeping but responsive to verbal and tactile stimuli NAD denies complaints of pain no leukocytosis Hg 7.8, s/p 2U PRBC transfusion pending repeat Hg CXR reviewed - Current Medication List Current Medications: Active Medications Acetaminophen (Tylenol -) 650 mg PO Q4H PRN PRN Reason: PAIN LEVEL 6-10 Last Admin: 03/17/19 17:09 Dose: 650 mg Albuterol/Ipratropium (Duoneb -) 1 amp NEB Q6H PRN PRN Reason: SHORTNESS OF BREATH Last Admin: 03/18/19 07:46 Dose: 1 amp Atorvastatin Calcium (Lipitor -) 20 mg PO [facility] Last Admin: 03/20/19 21:20 Dose: 20 mg Bupropion HCl (Wellbutrin Xl -) 150 mg PO DAILY [facility] Last Admin: 03/21/19 10:00 Dose: 150 mg Dicyclomine HCl (Bentyl -) 10 mg PO Q6H PRN PRN Reason: MUSCLE SPASMS Last Admin: 03/20/19 06:46 Dose: 10 mg Docusate Sodium (Colace -) 100 mg PO [facility] Last Admin: 03/20/19 21:20 Dose: 100 mg Donepezil HCl (Aricept -) 10 mg PO [facility] Last Admin: 03/20/19 21:20 Dose: 10 mg Hydralazine HCl (Apresoline -) 50 mg PO TID [facility] Last Admin: 03/21/19 06:41 Dose: 50 mg Ceftriaxone Sodium 2 gm/ (Dextrose) 100 mls @ 100 mls/hr IVPB DAILY [facility] Last Admin: 03/21/19 10:00 Dose: 100 mls/hr Insulin Aspart (Novolog Vial Sliding Scale -) 1 vial SQ TIDAC [facility]; Protocol Last Admin: 03/21/19 06:39 Dose: Not Given Labetalol HCl (Normodyne -) 200 mg PO TID [facility] Last Admin: 03/21/19 06:41 Dose: 200 mg Levothyroxine Sodium (Synthroid -) 25 mcg PO DAILY@0700 [facility] Last Admin: 03/21/19 06:41 Dose: 25 mcg Mirtazapine (Remeron -) 30 mg PO [facility] Last Admin: 03/20/19 21:20 Dose: 30 mg Nifedipine (Procardia Xl -) 60 mg PO BID [facility] Last Admin: 03/21/19 10:00 Dose: 60 mg Ondansetron HCl (Zofran -) 4 mg PO Q6H PRN PRN Reason: NAUSEA AND/OR VOMITING Last Admin: 03/19/19 20:49 Dose: 4 mg Pancrelipase (Creon Dr 36,000 Units Capsule) 1 cap PO TIDCM [facility] Last Admin: 03/21/19 08:27 Dose: 1 cap Pantoprazole Sodium (Protonix Iv) 40 mg IVPUSH DAILY [facility] Last Admin: 03/21/19 10:11 Dose: 40 mg Polyethylene Glycol (Miralax (For Daily Use) -) 17 gm PO BID [facility] Last Admin: 03/21/19 09:59 Dose: 17 gm Senna (Senna -) 2 tab PO HS PRN PRN Reason: CONSTIPATION Last Admin: 03/19/19 20:51 Dose: 2 tab Valsartan (Diovan -) 160 mg PO DAILY [facility] Last Admin: 03/21/19 10:00 Dose: 160 mg - Objective Vital Signs: Vital Signs Temperature 97.7 F 03/21/19 06:00 Pulse Rate 64 03/21/19 06:00 Respiratory Rate 18 03/21/19 06:00 Blood Pressure 179/71 H 03/21/19 06:00 O2 Sat by Pulse Oximetry (%) 98 03/20/19 21:00 Constitutional: Yes: No Distress, Calm Eyes: Yes: Conjunctiva Clear HENT: Yes: Atraumatic Cardiovascular: Yes: Regular Rate and Rhythm Respiratory: Yes: Regular, On Nasal O2, Wheezes Gastrointestinal: Yes: Normal Bowel Sounds, Soft Genitourinary: Yes: Incontinence Musculoskeletal: Yes: Muscle Weakness Extremities: Yes: WNL Edema: No Neurological: Yes: Alert, Oriented (to self) Psychiatric: Yes: Alert, Oriented Labs: Microbiology 03/15/19 06:27 Blood - Peripheral Venous Blood Culture - Final NO GROWTH AFTER 5 DAYS INCUBATION 03/15/19 06:40 Blood - Peripheral Venous Blood Culture - Final NO GROWTH AFTER 5 DAYS INCUBATION 03/15/19 15:20 Urine - Urine Clean Catch Urine Culture - Final Contaminated: Please Repeat Problem List - Problems (1) Emphysematous cystitis Assessment/Plan: -Urology and ID on board -UC contaminated, repeat ordered -UA 2+ protein, 2+ leuks -leukocytosis -Ceftriaxone -Bentyl -CTAP shows extensive sigmoid diverticulosis with no evidence of diverticulitis , large amount of air noted in the urinary bladder, may be related to recent instrumentation -will need cystoscopy as outpatient -BC neg Code(s): N30.80 - OTHER CYSTITIS WITHOUT HEMATURIA (2) Intractable abdominal pain Assessment/Plan: -CTAP shows extensive sigmoid diverticulosis with no evidence of diverticulitis , large amount of air noted in the urinary bladder, may be related to recent instrumentation -Bentyl Code(s): R10.9 - UNSPECIFIED ABDOMINAL PAIN (3) JASPER (acute kidney injury) Assessment/Plan: -BUN/Cr 63.8/2.2 -Renal on board Code(s): N17.9 - ACUTE KIDNEY FAILURE, UNSPECIFIED (4) Acute on chronic diastolic (congestive) heart failure Assessment/Plan: -1L fluid restriction -low Na diet -daily weights Code(s): I50.33 - ACUTE ON CHRONIC DIASTOLIC (CONGESTIVE) HEART FAILURE (5) Anemia Assessment/Plan: -Hg 7.8 -s/p 2U PRBC transfusion -GI and Hematology consult -will need cardiology and pulm clearance prior to EGD -monitor Hg daily -transfuse for Hg <7.0 to avoid fluid overload -anemia profile -stool ob Code(s): D64.9 - ANEMIA, UNSPECIFIED (6) Constipation Assessment/Plan: -Senna, Colace, Miralax -fleet enema x 1 stat Code(s): K59.00 - CONSTIPATION, UNSPECIFIED (7) Dementia Assessment/Plan: -Aricept -Head CT scan shows no evidence of acute intracranial hemorrhage, edema, midline shift, mass effect or skull fracture, no CT evidence of acute territorial ischemic changes Code(s): F03.90 - UNSPECIFIED DEMENTIA WITHOUT BEHAVIORAL DISTURBANCE (8) Diabetes Assessment/Plan: -BGM ACHS -ISS -diabetic/low Na diet Code(s): E11.9 - TYPE 2 DIABETES MELLITUS WITHOUT COMPLICATIONS (9) GERD (gastroesophageal reflux disease) Assessment/Plan: -Famotidine Code(s): K21.9 - GASTRO-ESOPHAGEAL REFLUX DISEASE WITHOUT ESOPHAGITIS (10) HLD (hyperlipidemia) Assessment/Plan: -Atorvastatin Code(s): E78.5 - HYPERLIPIDEMIA, UNSPECIFIED (11) HTN (hypertension) Assessment/Plan: -Hydralazine, Nifedipine, Labetolol, Valsartan -diabetic/low Na diet Code(s): I10 - ESSENTIAL (PRIMARY) HYPERTENSION (12) Hyponatremia Assessment/Plan: -Na 137 -resolved -monitor Na level daily Code(s): E87.1 - HYPO-OSMOLALITY AND HYPONATREMIA (13) Hypothyroidism Assessment/Plan: -Levothyroxine Code(s): E03.9 - HYPOTHYROIDISM, UNSPECIFIED (14) Parkinson disease Assessment/Plan: -fall precautions -Neurology f/u as outpatient Code(s): G20 - PARKINSON'S DISEASE (15) Abnormal CXR Assessment/Plan: -CXR shows new congestive changes with bibasilar pleural effusions and some atelectasis or infiltrate at left base -Cardiology and Pulm consult Code(s): R93.89 - ABNORMAL FINDINGS ON DX IMAGING OF OTH BODY STRUCTURES Assessment/Plan see problem list dvt ppx
[2019-03-21 10:47] LABS: BLOOD UREA NITROGEN 63.8 mg/dL (7-18); CALCIUM 8.6 mg/dL (8.5-10.1); CREATININE 2.2 mg/dL (0.55-1.3); POTASSIUM 4.7 mmol/L (3.5-5.1)
--- NOTE | 2019-03-21 11:04 | PN.GI ---
GI Progress Note Subjective: For Dr. Ibanez No acute events Cleared by cardiology yesterday Receiving nebulizer treatment No overt bleeding reported - Objective Vital Signs: Vital Signs Temperature 97.6 F 03/21/19 10:00 Pulse Rate 60 03/21/19 10:00 Respiratory Rate 18 03/21/19 10:00 Blood Pressure 186/68 H 03/21/19 10:00 O2 Sat by Pulse Oximetry (%) 98 03/20/19 21:00 Constitutional: Calm Eyes: No: Sclera Icterus Cardiovascular: Yes: Regular Rate and Rhythm. No: Murmur Respiratory: Yes: Diminished (at bases bilaterally. Poor insp effort.), Wheezes ...Auscultate: Yes: Normoactive Bowel Sounds Edema: No (No LE edema) Neurological: Yes: Alert Labs: CBC, BMP 03/21/19 06:55 Problem List - Problems (1) Anemia Assessment/Plan: No overt bleeding. Plan for EGD 02/20. If unreveling, possible repeat colonoscopy if patiant can cooperate. Discussed plan with Linda Ms. Cole' daughter. Discussed potential risks of the procedure like but not limited to bleeding, perforation requiring surgery to repair, infection, sedation medication effects all of which could be potentially life threatening. She has agreed to the procedure. Optimization of respiratory status prior to procedure per PMD Protonix 40mg once daily Monitor for overt bleeding Code(s): D64.9 - ANEMIA, UNSPECIFIED
[2019-03-21 12:22] LABS: HEMATOCRIT 32.7 % (32.4-45.2); HEMOGLOBIN 10.8 GM/dL (10.7-15.3); MCH 28.9 pg (25.7-33.7); MCHC 33.2 g/dl (32.0-36.0); MEAN CELL VOLUME 87.2 fl (80-96); PLATELET COUNT 519 K/MM3 (134-434); RBC 3.75 M/mm3 (3.60-5.2); RDW 15.1 % (11.6-15.6); WHITE BLOOD COUNT 9.3 K/mm3 (4.0-10.0)
--- NOTE | 2019-03-21 12:46 | PN ---
Progress Note, Physician Chief Complaint: Gen weakness History of Present Illness: 79 OMS,DM,HTN,CHOL, PARKINSON,DIVERTICS,GIB,HFpEF, now admitted with GIB for a w /u. Pt in in NAD CXR now revealing a new pleural effusion. Pt is breathing comfortably. - Current Medication List Current Medications: Active Medications Acetaminophen (Tylenol -) 650 mg PO Q4H PRN PRN Reason: PAIN LEVEL 6-10 Last Admin: 03/17/19 17:09 Dose: 650 mg Albuterol/Ipratropium (Duoneb -) 1 amp NEB Q6H PRN PRN Reason: SHORTNESS OF BREATH Last Admin: 03/18/19 07:46 Dose: 1 amp Atorvastatin Calcium (Lipitor -) 20 mg PO [facility] Last Admin: 03/20/19 21:20 Dose: 20 mg Bupropion HCl (Wellbutrin Xl -) 150 mg PO DAILY [facility] Last Admin: 03/21/19 10:00 Dose: 150 mg Dicyclomine HCl (Bentyl -) 10 mg PO Q6H PRN PRN Reason: MUSCLE SPASMS Last Admin: 03/20/19 06:46 Dose: 10 mg Docusate Sodium (Colace -) 100 mg PO [facility] Last Admin: 03/20/19 21:20 Dose: 100 mg Donepezil HCl (Aricept -) 10 mg PO [facility] Last Admin: 03/20/19 21:20 Dose: 10 mg Hydralazine HCl (Apresoline -) 50 mg PO TID [facility] Last Admin: 03/21/19 06:41 Dose: 50 mg Ceftriaxone Sodium 2 gm/ (Dextrose) 100 mls @ 100 mls/hr IVPB DAILY [facility] Last Admin: 03/21/19 10:00 Dose: 100 mls/hr Insulin Aspart (Novolog Vial Sliding Scale -) 1 vial SQ TIDAC [facility]; Protocol Last Admin: 03/21/19 12:11 Dose: Not Given Labetalol HCl (Normodyne -) 200 mg PO TID [facility] Last Admin: 03/21/19 06:41 Dose: 200 mg Levothyroxine Sodium (Synthroid -) 25 mcg PO DAILY@0700 [facility] Last Admin: 03/21/19 06:41 Dose: 25 mcg Mirtazapine (Remeron -) 30 mg PO [facility] Last Admin: 03/20/19 21:20 Dose: 30 mg Nifedipine (Procardia Xl -) 60 mg PO BID [facility] Last Admin: 03/21/19 10:00 Dose: 60 mg Ondansetron HCl (Zofran -) 4 mg PO Q6H PRN PRN Reason: NAUSEA AND/OR VOMITING Last Admin: 03/19/19 20:49 Dose: 4 mg Pancrelipase (Creon Dr 36,000 Units Capsule) 1 cap PO TIDCM [facility] Last Admin: 03/21/19 08:27 Dose: 1 cap Pantoprazole Sodium (Protonix Iv) 40 mg IVPUSH DAILY [facility] Last Admin: 03/21/19 10:11 Dose: 40 mg Polyethylene Glycol (Miralax (For Daily Use) -) 17 gm PO BID [facility] Last Admin: 03/21/19 09:59 Dose: 17 gm Senna (Senna -) 2 tab PO HS PRN PRN Reason: CONSTIPATION Last Admin: 03/19/19 20:51 Dose: 2 tab Valsartan (Diovan -) 160 mg PO DAILY [facility] Last Admin: 03/21/19 10:00 Dose: 160 mg - Objective Vital Signs: Vital Signs Temperature 97.6 F 03/21/19 10:00 Pulse Rate 60 03/21/19 10:00 Respiratory Rate 18 03/21/19 10:00 Blood Pressure 186/68 H 03/21/19 10:00 O2 Sat by Pulse Oximetry (%) 96 03/21/19 09:00 Constitutional: Yes: No Distress, Calm, Thin Eyes: Yes: WNL HENT: Yes: WNL, Atraumatic, Normocephalic, Tonsillar Exudate Neck: Yes: WNL, Supple, Trachea Midline Cardiovascular: Yes: Regular Rate and Rhythm, S1, S2 Respiratory: Yes: WNL, Regular, Other (decreased breath sounds at bases.) Gastrointestinal: Yes: WNL, Normal Bowel Sounds, Soft ...Rectal Exam: Yes: Deferred Genitourinary: Yes: WNL Musculoskeletal: Yes: WNL Extremities: Yes: WNL Edema: No Peripheral Pulses WNL: No Peripheral Pulses: Left Radial: 1+, Right Radial: 1+, Left Doralis Pedis: 1+, Right Dorsalis Pedis: 1+, Left Femoral: 1+, Right Femoral: 1+ Neurological: Yes: Alert Psychiatric: Yes: WNL, Alert Labs: CBC, BMP 12/31/19 06:55 03/21/19 06:55 Assessment/Plan 79 OMS,DM,HTN,CHOL, PARKINSON,DIVERTICS,GIB,HFpEF, now admitted with GIB for a w /u. Pt in in NAD CXR now revealing a new pleural effusion. Pt is breathing comfortably. Give lasix 40mg P.O daily. Please increase hydralazine to 100mg 3 times per day. No need for further cardiac w/u at this point. Stable for GI w/u as needed. Please call us PRN. Cardiac stable and comfortable.
--- NOTE | 2019-03-21 13:07 | CON.PULM ---
Consult Consult Specialty:: PULMONARY Referred by:: Dr Espana Reason for Consultation:: pulmonary clearance - History of Present Illness Chief Complaint: abdominal pain History of Present Illness: 79yo female with h/o HTN, DM, CKD, LV diastolic dysfunction, Parkinsons disease , dementia who was admitted with abdominal pain. She is unable to provide further history at this time. Planned for EGD. Last CXR with congestive changes but saturating 97% on 2L nasal cannula. She is a nonsmoker, no history of asthma or COPD. Does not take inhalers at home. - History Source History Provided By: Patient, Medical Record Limitations to Obtaining History: Dementia - Past Medical History [employer]: Yes: Dementia, Peripheral Neuropathy, Parkinson's Cardio/Vascular: Yes: CHF, HTN, Hyperlipdemia Gastrointestinal: Yes: Diverticulosis Psych: Yes: Anxiety Musculoskeletal: Yes: Osteoarthritis Endocrine: Yes: Diabetes Mellitus - Past Surgical History Past Surgical History: Yes: Appendectomy, Cholecystectomy, - Alcohol/Substance Use Hx Alcohol Use: No - Smoking History Smoking history: Never smoked Have you smoked in the past 12 months: No Aproximately how many cigarettes per day: 0 - Social History Usual Living Arrangement: Alone 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 (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 x5 days and 5 hours x2 days) History of Recent Travel: No Home Medications - Allergies Allergies/Adverse Reactions: Allergies Allergy/AdvReac Type Severity Reaction Status Date / Time carbidopa [From Sinemet] AdvReac Verified 03/16/19 14:29 levodopa [From Sinemet] AdvReac Verified 03/16/19 14:29 - Home Medications Home Medications: Ambulatory Orders Aspirin [Adult Aspirin Regimen] 81 mg PO DAILY 09/23/18 Atorvastatin Ca [Lipitor] 20 mg PO HS 09/23/18 Docusate Sodium [Stool Softener] 100 mg PO HS 09/23/18 Lipase/Protease/Amylase [Elaine Sweeney 36,000 Units Capsule] 1 each PO TID 09/23/18 Mirtazapine 30 mg PO HS 09/23/18 traMADol HCL [Ultram -] 50 mg PO TID PRN 09/23/18 Levothyroxine [Synthroid -] 25 mcg PO DAILY@0700 #30 tablet 09/30/18 Potassium Chloride [K-Dur -] 20 meq PO DAILY #30 tablet.er 09/30/18 Sennosides [Senna -] 2 tab PO HS PRN tablet 09/30/18 Donepezil HCl [Aricept] 10 mg PO DAILY #30 tablet 12/26/18 Famotidine [Pepcid] 40 mg PO BID #30 tablet 12/26/18 Insulin (Levemir) [Levemir Vial] 8 units SQ HS #100 units 12/26/18 Polyethylene Glycol 3350 [Miralax 119 gm Btl -] 17 gm PO BID #1 bottle 12/26/18 Valsartan [Diovan] 160 mg PO DAILY #30 tablet 12/26/18 Benicar 40 mg PO DAILY 03/16/19 Bupropion HCl 150 oz PO DAILY 03/16/19 Furosemide 80 mg PO TID 03/16/19 Hydralazine HCl 50 mg PO TID 03/16/19 Labetalol HCl 200 mg PO TID 03/16/19 Linzess 72 mcg PO HS 03/16/19 Nifedipine ER 60 mg PO BID 03/16/19 Review of Systems Unable to obtain ROS, reason: pt not answering Physical Exam Vital Sings: Vital Signs Temperature 97.6 F 03/21/19 10:00 Pulse Rate 60 03/21/19 10:00 Respiratory Rate 18 03/21/19 10:00 Blood Pressure 186/68 H 03/21/19 10:00 O2 Sat by Pulse Oximetry (%) 96 03/21/19 09:00 Constitutional: Yes: Calm Eyes: Yes: Conjunctiva Clear, EOM Intact HENT: Yes: Atraumatic, Normocephalic Neck: Yes: Supple, Trachea Midline Cardiovascular: Yes: Regular Rate and Rhythm Respiratory: Yes: Diminished (decreased breath sounds at the bases) ...Clubbing: No Gastrointestinal: Yes: Normal Bowel Sounds, Soft. No: Tenderness Edema: No Neurological: Yes: Alert Labs: CBC, BMP 03/21/19 06:55 03/21/19 06:55 Imaging - Results Chest X-ray: Report Reviewed, Image Reviewed (congestive changes) Problem List - Problems (1) Acute on chronic diastolic heart failure Code(s): I50.33 - ACUTE ON CHRONIC DIASTOLIC (CONGESTIVE) HEART FAILURE (2) Pulmonary HTN Code(s): I27.20 - PULMONARY HYPERTENSION, UNSPECIFIED Assessment/Plan Mild Acute on Chronic Diastolic Heart Failure Pulmonary HTN Acute on Chronic Renal Failure HTN DM Parkinsons Dementia Anemia - agree with lasix - monitor urine output, creatinine - O2 to keep Spo2 >90% - monitor H/H - protonix - pt asymptomatic and saturating well on nasal cannula - can proceed to endoscopy from pulmonary standpoint - DVT prophylaxis Thank you for this consult Polo Thakkar MD
--- NOTE | 2019-03-21 13:19 | CONSULT ---
Consultation: REQUESTING PROVIDER:primary team CONSULT REQUEST: We have been asked to medically evaluate this patient for ( anemia ). HISTORY OF PRESENT ILLNESS:history is taking from the chart as pt is not able to provide story Patient is a 78 year old female with PMH of DM, HTN, Parkinson's Disease, Dementia, CHF, CKD, Diverticulosis who presents with constipation, nausea, abd pain. Pt lives at home alone wih 24-hour [employer]. She has incontinence at baseline and wear a diaper, is able to ambulate with a walker, can perform most of her ADLs with minimal assistance. On Wednesday, pt was experiencing nausea and abd discomfort. Daughter noticed pt has not had bowel movement for about a week so she double her constipation medications (miralax and docusate) on Wednesday. On Wednesday, pt had multiple large bowel movements and felt better. Today, pt began experiencing worsening nausea and abd discomfort as well as abdominal muscle spasms ever couple minutes. Denies fevers, chills, urinary symptoms, SOB, chest pain. She has been keeping hydrated with water and pedialyte and has been eating well. Today she has not eaten at all due to being in the hospital. we were consulted for anemia S/P 2 units PRBCS REVIEW OF SYSTEMS: un able to obtain PHYSICAL EXAMINATION Vital Signs - 24 hr 03/20/19 03/20/19 03/20/19 14:46 20:30 21:00 Temperature 98.1 F 98.1 F Pulse Rate 56 L 64 Respiratory 20 18 18 Rate Blood Pressure 127/49 L 160/60 O2 Sat by Pulse 98 Oximetry (%) 03/21/19 03/21/19 03/21/19 00:35 02:00 06:00 Temperature 97.9 F 98.6 F 97.7 F Pulse Rate 63 60 64 Respiratory 20 18 18 Rate Blood Pressure 144/67 140/64 179/71 H O2 Sat by Pulse Oximetry (%) 03/21/19 03/21/19 09:00 10:00 Temperature 97.6 F Pulse Rate 60 Respiratory 18 18 Rate Blood Pressure 186/68 H O2 Sat by Pulse 96 Oximetry (%) GENERAL: sleepy HEAD:NC/AT EYES: [place], EOMI ENT: Dry MM , no thrush NECK: supple without lymphadenopathy, LUNGS: decrease breath sounds at the bases HEART: Regular rate and rhythm, normal S1 and S2 , 3/6 systolic murmur best heard at RUSB ,no rub or gallop. ABDOMEN: Soft, nontender, not distended, normoactive bowel soundssurgical scar and suprapubic fibrosis UPPER EXTREMITIES: 2+ pulses, warm, well-perfused. No cyanosis. No clubbing. Cap refill <2 seconds. No peripheral edema. LOWER EXTREMITIES: 2+ pulses, warm, well-perfused.. No peripheral edema. NEUROLOGICAL: no focal deficit . SKIN: Warm, dry, normal turgor, Laboratory Results - last 24 hr 03/20/19 03/20/19 03/21/19 09:20 17:24 06:36 WBC RBC Hgb Hct MCV MCH MCHC RDW Plt Count MPV Sodium Potassium Chloride Carbon Dioxide Anion Gap BUN Creatinine Est GFR (CKD-EPI)AfAm Est GFR (CKD-EPI)NonAf POC Glucometer 147 139 Random Glucose Calcium Vitamin B12 Blood Type A POSITIVE Antibody Screen Negative Crossmatch See Detail 03/21/19 03/21/19 03/21/19 06:55 06:55 12:08 WBC 9.3 RBC 3.75 Hgb 10.8 Hct 32.7 D MCV 87.2 MCH 28.9 MCHC 33.2 RDW 15.1 D Plt Count 519 H MPV 8.0 Sodium 137 Potassium 4.7 Chloride 105 Carbon Dioxide 23 Anion Gap 9 BUN 63.8 H Creatinine 2.2 H Est GFR (CKD-EPI)AfAm 24.26 Est GFR (CKD-EPI)NonAf 20.93 POC Glucometer 169 Random Glucose 142 H Calcium 8.6 Vitamin B12 524 Blood Type Antibody Screen Crossmatch Active Medications Generic Name Dose Route Start Last Admin Trade Name Freq PRN Reason Stop Dose Admin Acetaminophen 650 mg 03/15/19 22:32 03/17/19 17:09 Tylenol - PO 650 mg Q4H PRN Administration PAIN LEVEL 6-10 Albuterol/Ipratropium 1 amp 03/16/19 00:34 03/18/19 07:46 Duoneb - NEB 1 amp Q6H PRN Administration SHORTNESS OF BREATH Atorvastatin Calcium 20 mg 03/16/19 22:00 03/20/19 21:20 Lipitor - PO 20 mg HS JOYCE Administration Bupropion HCl 150 mg 03/16/19 10:00 03/21/19 10:00 Wellbutrin Xl - PO 150 mg DAILY JOYCE Administration Dicyclomine HCl 10 mg 03/15/19 22:37 03/20/19 06:46 Bentyl - PO 10 mg Q6H PRN Administration MUSCLE SPASMS Docusate Sodium 100 mg 03/16/19 22:00 03/20/19 21:20 Colace - PO 100 mg HS JOYEC Administration Donepezil HCl 10 mg 03/16/19 22:00 03/20/19 21:20 Aricept - PO 10 mg HS JOYCE Administration Hydralazine HCl 50 mg 03/16/19 22:00 03/21/19 06:41 Apresoline - PO 50 mg TID JOYCE Administration Ceftriaxone Sodium 2 gm/ 100 mls @ 100 mls/hr 03/16/19 10:00 03/21/19 10:00 Dextrose IVPB 100 mls/hr DAILY JOYCE Administration Insulin Aspart 1 vial 03/16/19 07:00 03/21/19 12:11 Novolog Vial Sliding Scale - SQ Not Given TIDAC JOYCE Protocol Labetalol HCl 200 mg 03/16/19 22:00 03/21/19 06:41 Normodyne - PO 200 mg TID JOYCE Administration Levothyroxine Sodium 25 mcg 03/17/19 07:00 03/21/19 06:41 Synthroid - PO 25 mcg DAILY@0700 JOYCE Administration Mirtazapine 30 mg 03/16/19 22:00 03/20/19 21:20 Remeron - PO 30 mg HS JOYCE Administration Nifedipine 60 mg 03/16/19 22:00 03/21/19 10:00 Procardia Xl - PO 60 mg BID JOYCE Administration Ondansetron HCl 4 mg 03/15/19 22:36 03/19/19 20:49 Zofran - PO 4 mg Q6H PRN Administration NAUSEA AND/OR VOMITING Pancrelipase 1 cap 03/16/19 12:00 03/21/19 08:27 Elaine Sweeney 36,000 Units Capsule PO 1 cap TIDCM JOYCE Administration Pantoprazole Sodium 40 mg 03/20/19 10:00 03/21/19 10:11 Protonix Iv IVPUSH 40 mg DAILY JOYCE Administration Polyethylene Glycol 17 gm 03/15/19 22:45 03/21/19 09:59 Miralax (For Daily Use) - PO 17 gm BID JOYCE Administration Senna 2 tab 03/16/19 22:00 12/29/19 20:51 Senna - PO 2 tab HS PRN Administration CONSTIPATION Valsartan 160 mg 03/16/19 10:30 03/21/19 10:00 Diovan - PO 160 mg DAILY JOYCE Administration CBC, BMP 03/21/19 06:55 CT head negative for acute pathology CXR with B/L pleural effusion and congestive changes US LE negative for DVTS ASSESSMENT/PLAN: Mild Acute on Chronic Diastolic Heart Failure Pulmonary HTN Acute on Chronic Renal Failure HTN DM Parkinsons Dementia hypothyroidism Anemia work up : iron studies , B12, folic acid , occult blood , TSH R.O MM kapa, lamda chain , serum protein electrophoresis S/P 2 Packe RBC normal transfusion threshold thrombocytosis Dispo: We will continue to follow the patient. Thank you for this consultative opportunity. Visit type - Emergency Visit Emergency Visit: Yes ED Registration Date: 03/15/19 Care time: The patient presented to the Emergency Department on the above date and was hospitalized for further evaluation of their emergent condition. - New Patient This patient is new to me today: Yes Date on this admission: 03/21/19 - Critical Care Critical Care patient: No ATTENDING PHYSICIAN STATEMENT I saw and evaluated the patient. I reviewed the resident's note and discussed the case with the resident. I agree with the resident's findings and plan as documented. SUBJECTIVE: OBJECTIVE: ASSESSMENT AND PLAN:
[2019-03-21 14:11] LABS: BLOOD UREA NITROGEN 61.6 mg/dL (7-18); CALCIUM 8.8 mg/dL (8.5-10.1); CREATININE 2.1 mg/dL (0.55-1.3)
[2019-03-21 14:42] VITALS: BMI 21.7
[2019-03-21] MEDS ORDERED: SODIUM PHOSPHATE/NA BIPHOS 133 ML ENEMA RC ONE (15:30)
[2019-03-21] MEDS ORDERED: FUROSEMIDE 40 MG/4 ML INJECTABLE VIAL IVPUSH ONE (17:27)
--- NOTE | 2019-03-21 17:27 | PN ---
Progress Note, Physician History of Present Illness: Pt seen and examined at bedside. She is awake and appears comfortable. - Current Medication List Current Medications: Active Medications Acetaminophen (Tylenol -) 650 mg PO Q4H PRN PRN Reason: PAIN LEVEL 6-10 Last Admin: 03/17/19 17:09 Dose: 650 mg Albuterol/Ipratropium (Duoneb -) 1 amp NEB Q6H PRN PRN Reason: SHORTNESS OF BREATH Last Admin: 03/18/19 07:46 Dose: 1 amp Atorvastatin Calcium (Lipitor -) 20 mg PO [facility] Last Admin: 03/20/19 21:20 Dose: 20 mg Bupropion HCl (Wellbutrin Xl -) 150 mg PO DAILY [facility] Last Admin: 03/21/19 10:00 Dose: 150 mg Dicyclomine HCl (Bentyl -) 10 mg PO Q6H PRN PRN Reason: MUSCLE SPASMS Last Admin: 03/20/19 06:46 Dose: 10 mg Docusate Sodium (Colace -) 100 mg PO [facility] Last Admin: 03/20/19 21:20 Dose: 100 mg Donepezil HCl (Aricept -) 10 mg PO [facility] Last Admin: 03/20/19 21:20 Dose: 10 mg Hydralazine HCl (Apresoline -) 50 mg PO TID [facility] Last Admin: 03/21/19 15:38 Dose: 50 mg Ceftriaxone Sodium 2 gm/ (Dextrose) 100 mls @ 100 mls/hr IVPB DAILY [facility] Last Admin: 03/21/19 10:00 Dose: 100 mls/hr Insulin Aspart (Novolog Vial Sliding Scale -) 1 vial SQ TIDAC [facility]; Protocol Last Admin: 03/21/19 12:11 Dose: Not Given Labetalol HCl (Normodyne -) 200 mg PO TID [facility] Last Admin: 03/21/19 15:38 Dose: 200 mg Levothyroxine Sodium (Synthroid -) 25 mcg PO DAILY@0700 [facility] Last Admin: 03/21/19 06:41 Dose: 25 mcg Mirtazapine (Remeron -) 30 mg PO [facility] Last Admin: 03/20/19 21:20 Dose: 30 mg Nifedipine (Procardia Xl -) 60 mg PO BID [facility] Last Admin: 03/21/19 10:00 Dose: 60 mg Ondansetron HCl (Zofran -) 4 mg PO Q6H PRN PRN Reason: NAUSEA AND/OR VOMITING Last Admin: 03/19/19 20:49 Dose: 4 mg Pancrelipase (Creon Dr 36,000 Units Capsule) 1 cap PO TIDCM [facility] Last Admin: 03/21/19 12:10 Dose: Not Given Pantoprazole Sodium (Protonix Iv) 40 mg IVPUSH DAILY [facility] Last Admin: 03/21/19 10:11 Dose: 40 mg Polyethylene Glycol (Miralax (For Daily Use) -) 17 gm PO BID [facility] Last Admin: 03/21/19 09:59 Dose: 17 gm Senna (Senna -) 2 tab PO HS PRN PRN Reason: CONSTIPATION Last Admin: 03/19/19 20:51 Dose: 2 tab Valsartan (Diovan -) 160 mg PO DAILY [facility] Last Admin: 03/21/19 10:00 Dose: 160 mg - Objective Vital Signs: Vital Signs Temperature 98.6 F 03/21/19 15:12 Pulse Rate 58 L 03/21/19 15:12 Respiratory Rate 18 03/21/19 15:12 Blood Pressure 159/71 03/21/19 15:12 O2 Sat by Pulse Oximetry (%) 96 03/21/19 09:00 Constitutional: Yes: Calm Eyes: Yes: Conjunctiva Clear HENT: Yes: Atraumatic Neck: Yes: Supple Cardiovascular: Yes: S1, S2 Respiratory: Yes: CTA Bilaterally, On Nasal O2 Gastrointestinal: Yes: Soft Genitourinary: Yes: WNL Musculoskeletal: Yes: WNL Edema: No Integumentary: Yes: WNL Neurological: Yes: Oriented Psychiatric: Yes: Oriented Labs: CBC, BMP 03/21/19 06:55 03/21/19 13:05 Assessment/Plan Current Medications Generic Name Dose Route Start Last Admin Trade Name Freq PRN Reason Stop Dose Admin Acetaminophen 650 mg 03/15/19 22:32 03/17/19 17:09 Tylenol - PO 650 mg Q4H PRN Administration PAIN LEVEL 6-10 Albuterol/Ipratropium 1 amp 03/16/19 00:34 03/18/19 07:46 Duoneb - NEB 1 amp Q6H PRN Administration SHORTNESS OF BREATH Atorvastatin Calcium 20 mg 03/16/19 22:00 03/20/19 21:20 Lipitor - PO 20 mg HS JOYCE Administration Bupropion HCl 150 mg 03/16/19 10:00 03/21/19 10:00 Wellbutrin Xl - PO 150 mg DAILY JOYCE Administration Dicyclomine HCl 10 mg 03/15/19 22:37 03/20/19 06:46 Bentyl - PO 10 mg Q6H PRN Administration MUSCLE SPASMS Docusate Sodium 100 mg 03/16/19 22:00 03/20/19 21:20 Colace - PO 100 mg HS JOYCE Administration Donepezil HCl 10 mg 03/16/19 22:00 03/20/19 21:20 Aricept - PO 10 mg HS JOYCE Administration Hydralazine HCl 50 mg 03/16/19 22:00 03/21/19 15:38 Apresoline - PO 50 mg TID JOYCE Administration Ceftriaxone Sodium 2 gm/ 100 mls @ 100 mls/hr 03/16/19 10:00 03/21/19 10:00 Dextrose IVPB 100 mls/hr DAILY JOYCE Administration Insulin Aspart 1 vial 03/16/19 07:00 03/21/19 12:11 Novolog Vial Sliding Scale - SQ Not Given TIDAC [facility] Protocol Labetalol HCl 200 mg 03/16/19 22:00 03/21/19 15:38 Normodyne - PO 200 mg TID JOYCE Administration Levothyroxine Sodium 25 mcg 03/17/19 07:00 03/21/19 06:41 Synthroid - PO 25 mcg DAILY@0700 JOYCE Administration Mirtazapine 30 mg 03/16/19 22:00 03/20/19 21:20 Remeron - PO 30 mg HS JOYCE Administration Nifedipine 60 mg 03/16/19 22:00 03/21/19 10:00 Procardia Xl - PO 60 mg BID JOYCE Administration Ondansetron HCl 4 mg 03/15/19 22:36 03/19/19 20:49 Zofran - PO 4 mg Q6H PRN Administration NAUSEA AND/OR VOMITING Pancrelipase 1 cap 03/16/19 12:00 03/21/19 12:[address] 36,000 Units Capsule PO Not Given TIDCM JOYCE Pantoprazole Sodium 40 mg 03/20/19 10:00 03/21/19 10:11 Protonix Iv IVPUSH 40 mg DAILY JOYCE Administration Polyethylene Glycol 17 gm 03/15/19 22:45 03/21/19 09:59 Miralax (For Daily Use) - PO 17 gm BID JOYCE Administration Senna 2 tab 03/16/19 22:00 03/19/19 20:51 Senna - PO 2 tab HS PRN Administration CONSTIPATION Valsartan 160 mg 03/16/19 10:30 03/21/19 10:00 Diovan - PO 160 mg DAILY JOYCE Administration Impression 1. JASPER 2. CKD 3. HLD 4.diverticulosis 5. HTN 6. DM 7. proteinuria 8. hypoalbuminemia 9. UTI 10. pleural effusion Impression - d/c fluids - cxr reviewed - cont lasix - repeat labs in am - monitor bp
[2019-03-21] MEDS ORDERED: INSULIN (NOVOLOG) ASPART 100 UNITS/ML 10ML VIAL ONE (21:53)
[2019-03-21] MEDS: DONEPEZIL HCL 10 MG TABLET (FP) PO SCH ×2 (22:12→23:05)
[2019-03-21] MEDS: MIRTAZAPINE 15 MG TABLET (FP) PO SCH ×2 (22:13→23:07)
[2019-03-21] MEDS: DOCUSATE SODIUM 100 MG CAPSULE (FP) PO SCH ×2 (22:14→23:06)
[2019-03-21] MEDS: ATORVASTATIN CA 20 MG TABLET (FP) PO SCH ×2 (22:14→23:06)
[2019-03-21] MEDS ORDERED: hydrALAZINE HCL 25 MG TABLET (FP) PO ONE (23:38)
[2019-03-21] MEDS ORDERED: hydrALAZINE HCL 20 MG/ML VIAL IM ONE (23:51)
[2019-03-22] MEDS: LABETALOL HCL 200 MG TABLET (FP) PO SCH ×3 (05:53→21:42)
[2019-03-22] MEDS: hydrALAZINE HCL 50 MG TABLET (FP) PO SCH ×3 (05:53→21:42)
[2019-03-22] MEDS: INSULIN SLIDING SCALE (NOVOLOG) 1 VIAL SQ SCH ×3 (06:04→17:09)
[2019-03-22] MEDS: ACETAMINOPHEN 325 MG TABLET (FP) PO PRN (06:04)
[2019-03-22] MEDS: LEVOTHYROXINE NA 25 MCG TABLET (FP) PO SCH (06:13)
[2019-03-22 08:02] LABS: BILIRUBIN,TOTAL 0.4 mg/dL (0.2-1); BLOOD UREA NITROGEN 54.4 mg/dL (7-18); CALCIUM 9.3 mg/dL (8.5-10.1); CREATININE 1.7 mg/dL (0.55-1.3); POTASSIUM 4.5 mmol/L (3.5-5.1); TOT PROT 6.9 g/dl (6.4-8.2)
[2019-03-22] MEDS: VALSARTAN 160 MG TABLET (UD) PO SCH (09:29)
[2019-03-22] MEDS: NIFEdipine E.R 60 MG TABLET (UD) PO SCH ×2 (09:29→21:42)
[2019-03-22] MEDS: POLYETHYLENE GLYCOL 3350 119 GM BTL PO SCH ×2 (09:44→21:41)
[2019-03-22] MEDS: LIPASE/PROTEASE/AMYLASE 36,000 UNIT CAPSULE PO SCH ×3 (09:44→17:08)
[2019-03-22] MEDS: PANTOPRAZOLE SODIUM 40 MG VIAL IVPUSH SCH (09:48)
[2019-03-22] MEDS ORDERED: DEXTROSE 5%-WATER 100 ML IVPB ONE (10:05)
[2019-03-22] MEDS: CEFTRIAXONE 2 GM in DEXTROSE 5%-WATER 100 ML IVPB SCH (10:06)
[2019-03-22] MEDS ORDERED: FUROSEMIDE 40 MG/4 ML INJECTABLE VIAL IVPUSH ONE (10:11)
--- NOTE | 2019-03-22 10:11 | PN ---
Progress Note (short form) - Note Progress Note: PULMONARY Denies shortness of breath. Nauseous and hypertensive this AM. Vital Signs Period Temp Pulse Resp BP Sys/East Pulse Ox Last 24 Hr 98 F-98.6 F 58-66 18-20 158-205/58-71 96 Gen: NAD at rest Heart: RRR Lung: decreased breath sounds at the bases Abd: soft, nontender Ext: no edema CBC, BMP 03/21/19 06:55 03/22/19 06:13 Active Medications Acetaminophen (Tylenol -) 650 mg PO Q4H PRN PRN Reason: PAIN LEVEL 6-10 Last Admin: 03/22/19 06:04 Dose: 650 mg Albuterol/Ipratropium (Duoneb -) 1 amp NEB Q6H PRN PRN Reason: SHORTNESS OF BREATH Last Admin: 03/18/19 07:46 Dose: 1 amp Atorvastatin Calcium (Lipitor -) 20 mg PO [facility] Last Admin: 03/21/19 23:06 Dose: Not Given Bupropion HCl (Wellbutrin Xl -) 150 mg PO DAILY [facility] Last Admin: 03/22/19 09:44 Dose: Not Given Dicyclomine HCl (Bentyl -) 10 mg PO Q6H PRN PRN Reason: MUSCLE SPASMS Last Admin: 03/20/19 06:46 Dose: 10 mg Docusate Sodium (Colace -) 100 mg PO [facility] Last Admin: 03/21/19 23:06 Dose: Not Given Donepezil HCl (Aricept -) 10 mg PO [facility] Last Admin: 03/21/19 23:05 Dose: Not Given Hydralazine HCl (Apresoline -) 50 mg PO TID [facility] Last Admin: 03/22/19 05:53 Dose: 50 mg Ceftriaxone Sodium 2 gm/ (Dextrose) 100 mls @ 100 mls/hr IVPB DAILY [facility] Last Admin: 03/22/19 10:06 Dose: 100 mls/hr Insulin Aspart (Novolog Vial Sliding Scale -) 1 vial SQ TIDAC [facility]; Protocol Last Admin: 03/22/19 06:04 Dose: 2 units Labetalol HCl (Normodyne -) 200 mg PO TID [facility] Last Admin: 03/22/19 05:53 Dose: 200 mg Levothyroxine Sodium (Synthroid -) 25 mcg PO DAILY@0700 [facility] Last Admin: 03/22/19 06:13 Dose: 25 mcg Mirtazapine (Remeron -) 30 mg PO HS [facility] Last Admin: 03/21/19 23:07 Dose: Not Given Nifedipine (Procardia Xl -) 60 mg PO BID [facility] Last Admin: 03/22/19 09:29 Dose: 60 mg Ondansetron HCl (Zofran -) 4 mg PO Q6H PRN PRN Reason: NAUSEA AND/OR VOMITING Last Admin: 03/19/19 20:49 Dose: 4 mg Pancrelipase (Creon Dr 36,000 Units Capsule) 1 cap PO TIDCM [facility] Last Admin: 03/22/19 09:44 Dose: Not Given Pantoprazole Sodium (Protonix Iv) 40 mg IVPUSH DAILY [facility] Last Admin: 03/22/19 09:48 Dose: 40 mg Polyethylene Glycol (Miralax (For Daily Use) -) 17 gm PO BID [facility] Last Admin: 03/22/19 09:44 Dose: Not Given Senna (Senna -) 2 tab PO HS PRN PRN Reason: CONSTIPATION Last Admin: 03/19/19 20:51 Dose: 2 tab Valsartan (Diovan -) 160 mg PO DAILY [facility] Last Admin: 03/22/19 09:29 Dose: 160 mg A/P Mild Acute on Chronic Diastolic Heart Failure Pulmonary HTN Acute on Chronic Renal Failure HTN DM Parkinsons Dementia Anemia - continue lasix - monitor urine output, creatinine - O2 to keep Spo2 >90% - monitor H/H - protonix - pt asymptomatic and saturating well on nasal cannula - can proceed to endoscopy from pulmonary standpoint - DVT prophylaxis Problem List - Problems (1) Acute on chronic diastolic heart failure Code(s): I50.33 - ACUTE ON CHRONIC DIASTOLIC (CONGESTIVE) HEART FAILURE (2) Pulmonary HTN Code(s): I27.20 - PULMONARY HYPERTENSION, UNSPECIFIED
--- NOTE | 2019-03-22 10:35 | PN ---
Progress Note, Physician Chief Complaint: AWAKE ALERT C/O ABDOMINAL PAIN RLQ NO FEVER OR CHILLS TOLERATING LIQUID SHAKES NONVERBAL - Current Medication List Current Medications: Active Medications Acetaminophen (Tylenol -) 650 mg PO Q4H PRN PRN Reason: PAIN LEVEL 6-10 Last Admin: 03/22/19 06:04 Dose: 650 mg Albuterol/Ipratropium (Duoneb -) 1 amp NEB Q6H PRN PRN Reason: SHORTNESS OF BREATH Last Admin: 03/18/19 07:46 Dose: 1 amp Atorvastatin Calcium (Lipitor -) 20 mg PO [facility] Last Admin: 03/21/19 23:06 Dose: Not Given Bupropion HCl (Wellbutrin Xl -) 150 mg PO DAILY [facility] Last Admin: 03/22/19 09:44 Dose: Not Given Dicyclomine HCl (Bentyl -) 10 mg PO Q6H PRN PRN Reason: MUSCLE SPASMS Last Admin: 03/20/19 06:46 Dose: 10 mg Docusate Sodium (Colace -) 100 mg PO [facility] Last Admin: 03/21/19 23:06 Dose: Not Given Donepezil HCl (Aricept -) 10 mg PO [facility] Last Admin: 03/21/19 23:05 Dose: Not Given Hydralazine HCl (Apresoline -) 50 mg PO TID [facility] Last Admin: 03/22/19 05:53 Dose: 50 mg Ceftriaxone Sodium 2 gm/ (Dextrose) 100 mls @ 100 mls/hr IVPB DAILY [facility] Last Admin: 03/22/19 10:06 Dose: 100 mls/hr Insulin Aspart (Novolog Vial Sliding Scale -) 1 vial SQ TIDAC [facility]; Protocol Last Admin: 03/22/19 06:04 Dose: 2 units Labetalol HCl (Normodyne -) 200 mg PO TID [facility] Last Admin: 03/22/19 05:53 Dose: 200 mg Levothyroxine Sodium (Synthroid -) 25 mcg PO DAILY@0700 [facility] Last Admin: 03/22/19 06:13 Dose: 25 mcg Mirtazapine (Remeron -) 30 mg PO [facility] Last Admin: 03/21/19 23:07 Dose: Not Given Nifedipine (Procardia Xl -) 60 mg PO BID [facility] Last Admin: 03/22/19 09:29 Dose: 60 mg Ondansetron HCl (Zofran -) 4 mg PO Q6H PRN PRN Reason: NAUSEA AND/OR VOMITING Last Admin: 03/19/19 20:49 Dose: 4 mg Pancrelipase (Creon Dr 36,000 Units Capsule) 1 cap PO TIDCM [facility] Last Admin: 03/22/19 09:44 Dose: Not Given Pantoprazole Sodium (Protonix Iv) 40 mg IVPUSH DAILY [facility] Last Admin: 03/22/19 09:48 Dose: 40 mg Polyethylene Glycol (Miralax (For Daily Use) -) 17 gm PO BID [facility] Last Admin: 03/22/19 09:44 Dose: Not Given Senna (Senna -) 2 tab PO HS PRN PRN Reason: CONSTIPATION Last Admin: 03/19/19 20:51 Dose: 2 tab Valsartan (Diovan -) 160 mg PO DAILY [facility] Last Admin: 03/22/19 09:29 Dose: 160 mg - Objective Vital Signs: Vital Signs Temperature 98 F 03/22/19 09:25 Pulse Rate 66 03/22/19 09:25 Respiratory Rate 18 03/22/19 09:25 Blood Pressure 205/66 H 03/22/19 09:25 O2 Sat by Pulse Oximetry (%) 96 03/21/19 21:00 Constitutional: Yes: Mild Distress Cardiovascular: Yes: Regular Rate and Rhythm Respiratory: Yes: Diminished Gastrointestinal: Yes: Soft, Tenderness (RLQ) Genitourinary: Yes: Incontinence Musculoskeletal: Yes: Muscle Weakness Integumentary: Yes: Other Neurological: Yes: Confusion, Pre-Existing Deficit, Weakness Labs: CBC, BMP 03/21/19 06:55 03/22/19 06:13 Problem List - Problems (1) Acute on chronic diastolic heart failure Code(s): I50.33 - ACUTE ON CHRONIC DIASTOLIC (CONGESTIVE) HEART FAILURE (2) Anemia Code(s): D64.9 - ANEMIA, UNSPECIFIED (3) Epigastric pain Code(s): R10.13 - EPIGASTRIC PAIN (4) Intractable abdominal pain Code(s): R10.9 - UNSPECIFIED ABDOMINAL PAIN (5) Pulmonary HTN Code(s): I27.20 - PULMONARY HYPERTENSION, UNSPECIFIED (6) Urinary tract infection Code(s): N39.0 - URINARY TRACT INFECTION, SITE NOT SPECIFIED Qualifiers: Urinary tract infection type: acute pyelonephritis Qualified Code(s): N10 - Acute pyelonephritis (7) Dementia Code(s): F03.90 - UNSPECIFIED DEMENTIA WITHOUT BEHAVIORAL DISTURBANCE (8) Depression Code(s): F32.9 - MAJOR DEPRESSIVE DISORDER, SINGLE EPISODE, UNSPECIFIED (9) Diabetes Code(s): E11.9 - TYPE 2 DIABETES MELLITUS WITHOUT COMPLICATIONS (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 Assessment/Plan NPO EXCEPT MEDS FLAGYL ADDED WITH ROCEPHIN IV ABD YUE CHECKING KUB BEDSIDE R/O STONE/ILEUS CHRONIC DIVERTICULOSIS. MORPHINE IV IVF D5NS ZOFRAN PRN EGD/COLONOSCOPY PER GI OVERALL CHRONICALLY ILL WOMAN WITH MULTIPLE MEDICAL PROBLEMS WHO IS A FULL CODE. WILL CONTINUE CURRENT CARE AND MEDS NEED TO SPEAK TO FAMILY ABOUT ADVANCED DIRECTIVE..
[2019-03-22] MEDS ORDERED: DEXTROSE 5%-NORMAL SALINE 1,000 ML IV SCH (10:45)
[2019-03-22] MEDS ORDERED: cloNIDine-TTS 0.1 MG/24 HRS PATCH.TDWK TD SCH (11:00)
--- NOTE | 2019-03-22 11:12 | PN ---
Progress Note (short form) - Note Progress Note: Possible EGD 1/2 if blood pressure controlled and respiratory status permits. Discussed with Dr. Maya Problem List - Problems (1) Anemia Code(s): D64.9 - ANEMIA, UNSPECIFIED
[2019-03-22] MEDS: MORPHINE SULFATE 2 MG/ML VIAL IVPUSH PRN (11:13)
--- NOTE | 2019-03-22 15:00 | PN ---
Teaching Attending Note Name of Resident: Lawrence Dhaliwal ATTENDING PHYSICIAN STATEMENT I saw and evaluated the patient. I reviewed the resident's note and discussed the case with the resident. I agree with the resident's findings and plan as documented. ASSESSMENT AND PLAN: 79y/o patient Mild Acute on Chronic Diastolic Heart Failure Pulmonary HTN Acute on Chronic Renal Failure HTN DM hypthyroid Parkinsons Dementia s/p cholecystectomy Anemia anemia of chronic disease--- mixed picture -- chronic disease + iron deficiency ( ? decreased iron saturation) B12/folate/TSH nl protein studies pending for GI w/u on 03/23/18
--- NOTE | 2019-03-22 18:36 | PN ---
Progress Note, Physician History of Present Illness: Pt seen and examined at bedside. She is awake and alert. She denies shortness of breath. She is now NPO. - Current Medication List Current Medications: Active Medications Acetaminophen (Tylenol -) 650 mg PO Q4H PRN PRN Reason: PAIN LEVEL 6-10 Last Admin: 03/22/19 06:04 Dose: 650 mg Albuterol/Ipratropium (Duoneb -) 1 amp NEB Q6H PRN PRN Reason: SHORTNESS OF BREATH Last Admin: 03/18/19 07:46 Dose: 1 amp Bupropion HCl (Wellbutrin Xl -) 150 mg PO DAILY [facility] Last Admin: 03/22/19 09:44 Dose: Not Given Clonidine HCl (Catapres Tts Patch -) 0.1 mg TD Q7D@1000 [facility] Last Admin: 03/22/19 11:14 Dose: 0.1 mg Dicyclomine HCl (Bentyl -) 10 mg PO Q6H PRN PRN Reason: MUSCLE SPASMS Last Admin: 03/20/19 06:46 Dose: 10 mg Docusate Sodium (Colace -) 100 mg PO HS [facility] Last Admin: 03/21/19 23:06 Dose: Not Given Hydralazine HCl (Apresoline -) 50 mg PO TID [facility] Last Admin: 03/22/19 14:23 Dose: 50 mg Ceftriaxone Sodium 2 gm/ (Dextrose) 100 mls @ 100 mls/hr IVPB DAILY [facility] Last Admin: 03/22/19 10:06 Dose: 100 mls/hr Metronidazole (Flagyl 500mg Premixed Ivpb -) 500 mg in 100 mls @ 100 mls/hr IVPB Q8H-IV [facility] Last Admin: 03/22/19 17:12 Dose: 100 mls/hr Dextrose/Sodium Chloride (D5-Ns -) 1,000 mls @ 75 mls/hr IV ASDIR [facility] Last Admin: 03/22/19 10:37 Dose: 75 mls/hr Insulin Aspart (Novolog Vial Sliding Scale -) 1 vial SQ TIDAC [facility]; Protocol Last Admin: 03/22/19 17:09 Dose: Not Given Labetalol HCl (Normodyne -) 200 mg PO TID [facility] Last Admin: 03/22/19 14:23 Dose: 200 mg Levothyroxine Sodium (Synthroid -) 25 mcg PO DAILY@0700 [facility] Last Admin: 03/22/19 06:13 Dose: 25 mcg Mirtazapine (Remeron -) 30 mg PO HS [facility] Last Admin: 03/21/19 23:07 Dose: Not Given Morphine Sulfate (Morphine Sulfate) 2 mg IVPUSH Q6H PRN PRN Reason: PAIN LEVEL 7 - 10 Last Admin: 03/22/19 11:13 Dose: 2 mg Nifedipine (Procardia Xl -) 60 mg PO BID [facility] Last Admin: 03/22/19 09:29 Dose: 60 mg Ondansetron HCl (Zofran Injection) 4 mg IVPUSH Q8H PRN PRN Reason: NAUSEA Pancrelipase (Creon Dr 36,000 Units Capsule) 1 cap PO TIDCM [facility] Last Admin: 03/22/19 17:08 Dose: Not Given Pantoprazole Sodium (Protonix Iv) 40 mg IVPUSH DAILY [facility] Last Admin: 03/22/19 09:48 Dose: 40 mg Polyethylene Glycol (Miralax (For Daily Use) -) 17 gm PO BID [facility] Last Admin: 03/22/19 09:44 Dose: Not Given Senna (Senna -) 2 tab PO HS PRN PRN Reason: CONSTIPATION Last Admin: 03/19/19 20:51 Dose: 2 tab Valsartan (Diovan -) 160 mg PO DAILY [facility] Last Admin: 03/22/19 09:29 Dose: 160 mg - Objective Vital Signs: Vital Signs Temperature 98.2 F 03/22/19 15:23 Pulse Rate 67 03/22/19 15:23 Respiratory Rate 20 03/22/19 15:23 Blood Pressure 169/64 03/22/19 15:23 O2 Sat by Pulse Oximetry (%) 96 03/22/19 09:00 Constitutional: Yes: Calm Eyes: Yes: Conjunctiva Clear HENT: Yes: Atraumatic Neck: Yes: Supple Cardiovascular: Yes: S1, S2 Respiratory: Yes: On Nasal O2 Gastrointestinal: Yes: Soft Genitourinary: Yes: WNL Musculoskeletal: Yes: WNL Edema: No Integumentary: Yes: WNL Neurological: Yes: Oriented Psychiatric: Yes: Oriented Labs: CBC, BMP 03/21/19 06:55 03/22/19 06:13 Assessment/Plan Current Medications Generic Name Dose Route Start Last Admin Trade Name Freq PRN Reason Stop Dose Admin Acetaminophen 650 mg 03/15/19 22:32 03/22/19 06:04 Tylenol - PO 650 mg Q4H PRN Administration PAIN LEVEL 6-10 Albuterol/Ipratropium 1 amp 03/16/19 00:34 03/18/19 07:46 Duoneb - NEB 1 amp Q6H PRN Administration SHORTNESS OF BREATH Bupropion HCl 150 mg 03/16/19 10:00 03/22/19 09:44 Wellbutrin Xl - PO Not Given DAILY [facility] Clonidine HCl 0.1 mg 03/22/19 11:00 03/22/19 11:14 Catapres Tts Patch - TD 0.1 mg Q7D@1000 [facility] Administration Dicyclomine HCl 10 mg 03/15/19 22:37 03/20/19 06:46 Bentyl - PO 10 mg Q6H PRN Administration MUSCLE SPASMS Docusate Sodium 100 mg 03/16/19 22:00 03/21/19 23:06 Colace - PO Not Given HS [facility] Hydralazine HCl 50 mg 03/16/19 22:00 03/22/19 14:23 Apresoline - PO 50 mg TID [facility] Administration Ceftriaxone Sodium 2 gm/ 100 mls @ 100 mls/hr 03/16/19 10:00 03/22/19 10:06 Dextrose IVPB 100 mls/hr DAILY [facility] Administration Metronidazole 500 mg in 100 mls @ 100 mls/hr 03/22/19 18:00 03/22/19 17:12 Flagyl 500mg Premixed Ivpb - IVPB 100 mls/hr Q8H-IV [facility] Administration Dextrose/Sodium Chloride 1,000 mls @ 75 mls/hr 03/22/19 10:45 03/22/19 10:37 D5-Ns - IV 75 mls/hr ASDIR [facility] Administration Insulin Aspart 1 vial 03/16/19 07:00 03/22/19 17:09 Novolog Vial Sliding Scale - SQ Not Given TIDAC [facility] Protocol Labetalol HCl 200 mg 03/16/19 22:00 03/22/19 14:23 Normodyne - PO 200 mg TID [facility] Administration Levothyroxine Sodium 25 mcg 03/17/19 07:00 03/22/19 06:13 Synthroid - PO 25 mcg DAILY@0700 [facility] Administration Mirtazapine 30 mg 12/26/19 22:00 03/21/19 23:07 Remeron - PO Not Given HS [facility] Morphine Sulfate 2 mg 03/22/19 10:32 03/22/19 11:13 Morphine Sulfate IVPUSH 2 mg Q6H PRN Administration PAIN LEVEL 7 - 10 Nifedipine 60 mg 03/16/19 22:00 03/22/19 09:29 Procardia Xl - PO 60 mg BID [facility] Administration Ondansetron HCl 4 mg 03/22/19 18:22 Zofran Injection IVPUSH Q8H PRN NAUSEA Pancrelipase 1 cap 03/16/19 12:00 03/22/19 17:08 Credyana Sweeney 36,000 Units Capsule PO Not Given TIDCM [facility] Pantoprazole Sodium 40 mg 03/20/19 10:00 03/22/19 09:48 Protonix Iv IVPUSH 40 mg DAILY [facility] Administration Polyethylene Glycol 17 gm 03/15/19 22:45 03/22/19 09:44 Miralax (For Daily Use) - PO Not Given BID [facility] Senna 2 tab 03/16/19 22:00 03/19/19 20:51 Senna - PO 2 tab HS PRN Administration CONSTIPATION Valsartan 160 mg 03/16/19 10:30 03/22/19 09:29 Diovan - PO 160 mg DAILY [facility] Administration Impression 1. JASPER 2. CKD 3. HLD 4.diverticulosis 5. HTN 6. DM 7. proteinuria 8. hypoalbuminemia 9. UTI 10. pleural effusion Impression - pt did get lasix - on fluids for NPO, change to d51/2 and decrease rate - increase hydralazine dose - GI input appreciated - renal function is improving - cont lasix - repeat labs in am - monitor bp
[2019-03-22] MEDS ORDERED: DEXTROSE 5%-0.45% SALINE 1,000 ML IV SCH (18:45)
[2019-03-22] MEDS: DOCUSATE SODIUM 100 MG CAPSULE (FP) PO SCH (21:41)
[2019-03-22] MEDS: MIRTAZAPINE 15 MG TABLET (FP) PO SCH (21:42)
[2019-03-23] MEDS: LABETALOL HCL 200 MG TABLET (FP) PO SCH ×3 (06:09→21:50)
[2019-03-23] MEDS: LEVOTHYROXINE NA 25 MCG TABLET (FP) PO SCH (06:09)
[2019-03-23] MEDS: hydrALAZINE HCL 50 MG TABLET (FP) PO SCH ×3 (06:09→21:50)
[2019-03-23] MEDS: INSULIN SLIDING SCALE (NOVOLOG) 1 VIAL SQ SCH ×3 (06:09→17:18)
[2019-03-23 07:07] LABS: HEMATOCRIT 32.4 % (32.4-45.2); MCH 29.1 pg (25.7-33.7); MCHC 33.8 g/dl (32.0-36.0); MEAN CELL VOLUME 86.1 fl (80-96); MEAN PLT VOLUME 6.8 fl (7.5-11.1); PLATELET COUNT 510 K/MM3 (134-434); RBC 3.76 M/mm3 (3.60-5.2); RDW 14.7 % (11.6-15.6); WHITE BLOOD COUNT 9.9 K/mm3 (4.0-10.0)
[2019-03-23 07:33] LABS: ALBUMIN 2.8 g/dl (3.4-5.0); BILIRUBIN,TOTAL 0.4 mg/dL (0.2-1); BLOOD UREA NITROGEN 37.4 mg/dL (7-18); CALCIUM 8.9 mg/dL (8.5-10.1); CREATININE 1.2 mg/dL (0.55-1.3); POTASSIUM 4.3 mmol/L (3.5-5.1); TOT PROT 6.3 g/dl (6.4-8.2)
[2019-03-23] MEDS ORDERED: DEXTROSE 5%-WATER 200 ML IVPB ONE (08:45)
[2019-03-23] MEDS: PANTOPRAZOLE SODIUM 40 MG VIAL IVPUSH SCH (09:15)
[2019-03-23] MEDS: LIPASE/PROTEASE/AMYLASE 36,000 UNIT CAPSULE PO SCH ×3 (09:16→17:19)
[2019-03-23] MEDS: NIFEdipine E.R 60 MG TABLET (UD) PO SCH ×2 (09:16→21:50)
[2019-03-23] MEDS: VALSARTAN 160 MG TABLET (UD) PO SCH (09:16)
[2019-03-23] MEDS: POLYETHYLENE GLYCOL 3350 119 GM BTL PO SCH ×2 (09:16→21:51)
--- NOTE | 2019-03-23 09:50 | PN ---
Progress Note (short form) - Note Progress Note: CXR result noted. Congestive changes infiltrates and b/l pleural effusion. Holding off on endoscopy at this time until patient further optimized from cardiovascular standpoint. Problem List - Problems (1) Anemia Code(s): D64.9 - ANEMIA, UNSPECIFIED
--- NOTE | 2019-03-23 10:02 | PN ---
Progress Note (short form) - Note Progress Note: PULMONARY More conversant today. Denies shortness of breath. CXR still with congestive changes. Vital Signs Period Temp Pulse Resp BP Sys/East Pulse Ox Last 24 Hr 98.0 F-98.2 F 67-78 20-20 166-169/64-88 96 Gen: NAD at rest Heart: RRR Lung: decreased breath sounds at the bases Abd: soft, nontender Ext: no edema CBC, BMP 03/23/19 06:20 03/23/19 06:20 Active Medications Acetaminophen (Tylenol -) 650 mg PO Q4H PRN PRN Reason: PAIN LEVEL 6-10 Last Admin: 03/22/19 06:04 Dose: 650 mg Albuterol/Ipratropium (Duoneb -) 1 amp NEB Q6H PRN PRN Reason: SHORTNESS OF BREATH Last Admin: 03/18/19 07:46 Dose: 1 amp Bupropion HCl (Wellbutrin Xl -) 150 mg PO DAILY [facility] Last Admin: 03/23/19 09:16 Dose: 150 mg Clonidine HCl (Catapres Tts Patch -) 0.1 mg TD Q7D@1000 [facility] Last Admin: 03/22/19 11:14 Dose: 0.1 mg Dicyclomine HCl (Bentyl -) 10 mg PO Q6H PRN PRN Reason: MUSCLE SPASMS Last Admin: 03/20/19 06:46 Dose: 10 mg Docusate Sodium (Colace -) 100 mg PO HS [facility] Last Admin: 03/22/19 21:41 Dose: Not Given Hydralazine HCl (Apresoline -) 100 mg PO TID [facility] Last Admin: 03/23/19 06:09 Dose: 100 mg Ceftriaxone Sodium 2 gm/ (Dextrose) 100 mls @ 100 mls/hr IVPB DAILY [facility] Last Admin: 03/22/19 10:06 Dose: 100 mls/hr Metronidazole (Flagyl 500mg Premixed Ivpb -) 500 mg in 100 mls @ 100 mls/hr IVPB Q8H-IV [facility] Last Admin: 03/23/19 09:16 Dose: 100 mls/hr Dextrose/Sodium Chloride (D5-1/2ns -) 1,000 mls @ 42 mls/hr IV ASDIR [facility] Last Admin: 03/22/19 21:41 Dose: 42 mls/hr Insulin Aspart (Novolog Vial Sliding Scale -) 1 vial SQ TIDAC [facility]; Protocol Last Admin: 03/23/19 06:09 Dose: Not Given Labetalol HCl (Normodyne -) 200 mg PO TID [facility] Last Admin: 03/23/19 06:09 Dose: 200 mg Levothyroxine Sodium (Synthroid -) 25 mcg PO DAILY@0700 [facility] Last Admin: 03/23/19 06:09 Dose: 25 mcg Mirtazapine (Remeron -) 30 mg PO HS [facility] Last Admin: 03/22/19 21:42 Dose: 30 mg Morphine Sulfate (Morphine Sulfate) 2 mg IVPUSH Q6H PRN PRN Reason: PAIN LEVEL 7 - 10 Last Admin: 03/22/19 11:13 Dose: 2 mg Nifedipine (Procardia Xl -) 60 mg PO BID [facility] Last Admin: 03/23/19 09:16 Dose: 60 mg Ondansetron HCl (Zofran Injection) 4 mg IVPUSH Q8H PRN PRN Reason: NAUSEA Pancrelipase (Creon Dr 36,000 Units Capsule) 1 cap PO TIDCM [facility] Last Admin: 03/23/19 09:16 Dose: Not Given Pantoprazole Sodium (Protonix Iv) 40 mg IVPUSH DAILY [facility] Last Admin: 03/23/19 09:15 Dose: 40 mg Polyethylene Glycol (Miralax (For Daily Use) -) 17 gm PO BID [facility] Last Admin: 03/23/19 09:16 Dose: Not Given Senna (Senna -) 2 tab PO HS PRN PRN Reason: CONSTIPATION Last Admin: 03/19/19 20:51 Dose: 2 tab Valsartan (Diovan -) 160 mg PO DAILY [facility] Last Admin: 03/23/19 09:16 Dose: 160 mg A/P Mild Acute on Chronic Diastolic Heart Failure Pulmonary HTN Acute on Chronic Renal Failure HTN DM Parkinsons Dementia Anemia - would d/c IVF - continue lasix - monitor urine output, creatinine - O2 to keep Spo2 >90% - monitor H/H - protonix - pt asymptomatic and saturating well on nasal cannula - DVT prophylaxis Problem List - Problems (1) Acute on chronic diastolic heart failure Code(s): I50.33 - ACUTE ON CHRONIC DIASTOLIC (CONGESTIVE) HEART FAILURE (2) Pulmonary HTN Code(s): I27.20 - PULMONARY HYPERTENSION, UNSPECIFIED
[2019-03-23] MEDS ORDERED: FUROSEMIDE 40 MG/4 ML INJECTABLE VIAL IVPUSH ONE (10:06)
[2019-03-23] MEDS: CEFTRIAXONE 2 GM in DEXTROSE 5%-WATER 100 ML IVPB SCH (10:20)
--- NOTE | 2019-03-23 10:51 | PN ---
Progress Note, Physician Chief Complaint: Anemia Uncontrolled HTN JASPER vs CKD History of Present Illness: NAD Denies any abd pain, N/V Has no appetite BP remains elevated - Current Medication List Current Medications: Active Medications Acetaminophen (Tylenol -) 650 mg PO Q4H PRN PRN Reason: PAIN LEVEL 6-10 Last Admin: 03/22/19 06:04 Dose: 650 mg Albuterol/Ipratropium (Duoneb -) 1 amp NEB Q6H PRN PRN Reason: SHORTNESS OF BREATH Last Admin: 03/18/19 07:46 Dose: 1 amp Bupropion HCl (Wellbutrin Xl -) 150 mg PO DAILY [facility] Last Admin: 03/23/19 09:16 Dose: 150 mg Clonidine HCl (Catapres Tts Patch -) 0.2 mg TD Q7D@1000 [facility] Dicyclomine HCl (Bentyl -) 10 mg PO Q6H PRN PRN Reason: MUSCLE SPASMS Last Admin: 03/20/19 06:46 Dose: 10 mg Docusate Sodium (Colace -) 100 mg PO [facility] Last Admin: 03/22/19 21:41 Dose: Not Given Hydralazine HCl (Apresoline -) 100 mg PO TID [facility] Last Admin: 03/23/19 06:09 Dose: 100 mg Metronidazole (Flagyl 500mg Premixed Ivpb -) 500 mg in 100 mls @ 100 mls/hr IVPB Q8H-IV [facility] Last Admin: 03/23/19 09:16 Dose: 100 mls/hr Insulin Aspart (Novolog Vial Sliding Scale -) 1 vial SQ TIDAC [facility]; Protocol Last Admin: 03/23/19 06:09 Dose: Not Given Labetalol HCl (Normodyne -) 200 mg PO TID [facility] Last Admin: 03/23/19 06:09 Dose: 200 mg Levothyroxine Sodium (Synthroid -) 25 mcg PO DAILY@0700 [facility] Last Admin: 03/23/19 06:09 Dose: 25 mcg Mirtazapine (Remeron -) 30 mg PO [facility] Last Admin: 03/22/19 21:42 Dose: 30 mg Morphine Sulfate (Morphine Sulfate) 2 mg IVPUSH Q6H PRN PRN Reason: PAIN LEVEL 7 - 10 Last Admin: 03/22/19 11:13 Dose: 2 mg Nifedipine (Procardia Xl -) 60 mg PO BID [facility] Last Admin: 03/23/19 09:16 Dose: 60 mg Ondansetron HCl (Zofran Injection) 4 mg IVPUSH Q8H PRN PRN Reason: NAUSEA Pancrelipase (Creon Dr 36,000 Units Capsule) 1 cap PO [facility] Last Admin: 03/23/19 09:16 Dose: Not Given Pantoprazole Sodium (Protonix Iv) 40 mg IVPUSH DAILY [facility] Last Admin: 03/23/19 09:15 Dose: 40 mg Polyethylene Glycol (Miralax (For Daily Use) -) 17 gm PO BID [facility] Last Admin: 03/23/19 09:16 Dose: Not Given Senna (Senna -) 2 tab PO HS PRN PRN Reason: CONSTIPATION Last Admin: 03/19/19 20:51 Dose: 2 tab Valsartan (Diovan -) 160 mg PO DAILY [facility] - Objective Vital Signs: Vital Signs Temperature 98.0 F 03/23/19 10:00 Pulse Rate 70 03/23/19 10:00 Respiratory Rate 03/23/19 10:00 Blood Pressure 205/68 H 03/23/19 10:00 O2 Sat by Pulse Oximetry (%) 96 03/22/19 21:00 Constitutional: Yes: Well Nourished, No Distress, Calm Respiratory: Yes: Regular Gastrointestinal: Yes: Normal Bowel Sounds, Soft Genitourinary: Yes: Incontinence Musculoskeletal: Yes: Muscle Weakness Extremities: Yes: WNL Edema: No Peripheral Pulses WNL: Yes Neurological: Yes: Alert, Pre-Existing Deficit Psychiatric: Yes: Alert Labs: CBC, BMP 03/23/19 06:20 03/23/19 06:20 Problem List - Problems (1) Cystitis Assessment/Plan: -IV ceftriaxone- completed 8 days -UC contaminated Problems reviewed: Yes Code(s): N30.90 - CYSTITIS, UNSPECIFIED WITHOUT HEMATURIA (2) Acute on chronic diastolic heart failure Assessment/Plan: -Cardiology to re-evaluated -D/C IVF -CXR pleural effusion- which seems to be chronic -Furosemide dose daily according to renal fxn -Low sodium diabetic diet Problems reviewed: Yes Code(s): I50.33 - ACUTE ON CHRONIC DIASTOLIC (CONGESTIVE) HEART FAILURE (3) Anemia Assessment/Plan: -Stool OB still pending -EGD cancelled -GI on board -H/H stable Problems reviewed: Yes Code(s): D64.9 - ANEMIA, UNSPECIFIED (4) Intractable abdominal pain Assessment/Plan: -Abd/pel CT unremarkable -Chronic abd pain -Started on Flagyl Problems reviewed: Yes Code(s): R10.9 - UNSPECIFIED ABDOMINAL PAIN (5) HTN (hypertension) Assessment/Plan: -Increase clonidine to 0.2 mg Qweekly -Cardiology to re-evaluated -Would increase valsartan to 320 if needed -monitor trend Problems reviewed: Yes Code(s): I10 - ESSENTIAL (PRIMARY) HYPERTENSION Assessment/Plan see problem list PT
[2019-03-23] MEDS ORDERED: cloNIDine-TTS 0.2 MG/24 HOURS PATCH.TDWK TD SCH (11:15)
[2019-03-23] MEDS ORDERED: FERRIC CARBOXYMALTOSE 750 MG in SODIUM CHLORIDE 250 ML IVPB ONE (12:00)
--- NOTE | 2019-03-23 12:47 | PN ---
Progress Note, Physician Chief Complaint: Fatigue History of Present Illness: 79 OMS,DM,HTN,CHOL, PARKINSON,DIVERTICS,GIB,HFpEF, now admitted with GIB for a w /u. Pt in in NAD CXR now revealing a new pleural effusion. Pt is breathing comfortably. - Current Medication List Current Medications: Active Medications Acetaminophen (Tylenol -) 650 mg PO Q4H PRN PRN Reason: PAIN LEVEL 6-10 Last Admin: 03/22/19 06:04 Dose: 650 mg Albuterol/Ipratropium (Duoneb -) 1 amp NEB Q6H PRN PRN Reason: SHORTNESS OF BREATH Last Admin: 03/18/19 07:46 Dose: 1 amp Bupropion HCl (Wellbutrin Xl -) 150 mg PO DAILY [facility] Last Admin: 03/23/19 09:16 Dose: 150 mg Clonidine HCl (Catapres Tts Patch -) 0.2 mg TD Q7D@1000 [facility] Last Admin: 03/23/19 11:47 Dose: 0.2 mg Dicyclomine HCl (Bentyl -) 10 mg PO Q6H PRN PRN Reason: MUSCLE SPASMS Last Admin: 03/20/19 06:46 Dose: 10 mg Docusate Sodium (Colace -) 100 mg PO [facility] Last Admin: 03/22/19 21:41 Dose: Not Given Hydralazine HCl (Apresoline -) 100 mg PO TID [facility] Last Admin: 03/23/19 06:09 Dose: 100 mg Metronidazole (Flagyl 500mg Premixed Ivpb -) 500 mg in 100 mls @ 100 mls/hr IVPB Q8H-IV [facility] Last Admin: 03/23/19 09:16 Dose: 100 mls/hr Insulin Aspart (Novolog Vial Sliding Scale -) 1 vial SQ TIDAC [facility]; Protocol Last Admin: 03/23/19 12:01 Dose: Not Given Labetalol HCl (Normodyne -) 200 mg PO TID [facility] Last Admin: 03/23/19 06:09 Dose: 200 mg Levothyroxine Sodium (Synthroid -) 25 mcg PO DAILY@0700 [facility] Last Admin: 03/23/19 06:09 Dose: 25 mcg Mirtazapine (Remeron -) 30 mg PO [facility] Last Admin: 03/22/19 21:42 Dose: 30 mg Morphine Sulfate (Morphine Sulfate) 2 mg IVPUSH Q6H PRN PRN Reason: PAIN LEVEL 7 - 10 Last Admin: 03/22/19 11:13 Dose: 2 mg Nifedipine (Procardia Xl -) 60 mg PO BID [facility] Last Admin: 03/23/19 09:16 Dose: 60 mg Ondansetron HCl (Zofran Injection) 4 mg IVPUSH Q8H PRN PRN Reason: NAUSEA Pancrelipase (Creon Dr 36,000 Units Capsule) 1 cap PO TIDCM [facility] Last Admin: 03/23/19 11:47 Dose: 1 cap Pantoprazole Sodium (Protonix Iv) 40 mg IVPUSH DAILY [facility] Last Admin: 03/23/19 09:15 Dose: 40 mg Polyethylene Glycol (Miralax (For Daily Use) -) 17 gm PO BID [facility] Last Admin: 03/23/19 09:16 Dose: Not Given Senna (Senna -) 2 tab PO HS PRN PRN Reason: CONSTIPATION Last Admin: 03/19/19 20:51 Dose: 2 tab Valsartan (Diovan -) 160 mg PO DAILY [facility] - Objective Vital Signs: Vital Signs Temperature 98.0 F 03/23/19 10:00 Pulse Rate 70 03/23/19 10:00 Respiratory Rate 20 03/23/19 10:00 Blood Pressure 205/68 H 03/23/19 10:00 O2 Sat by Pulse Oximetry (%) 98 03/23/19 09:00 Constitutional: Yes: Well Nourished, No Distress, Calm Eyes: Yes: WNL, Conjunctiva Clear, EOM Intact HENT: Yes: WNL, Atraumatic, Normocephalic Neck: Yes: WNL, Supple, Trachea Midline Cardiovascular: Yes: WNL, Regular Rate and Rhythm, S1, S2 Gastrointestinal: Yes: WNL, Normal Bowel Sounds, Soft ...Rectal Exam: Yes: Deferred Musculoskeletal: Yes: WNL Extremities: Yes: WNL Edema: No Peripheral Pulses: Left Femoral: 1+, Right Femoral: 1+ Neurological: Yes: Alert Psychiatric: Yes: WNL, Alert Labs: CBC, BMP 03/23/19 06:20 03/23/19 06:20 Assessment/Plan 79 OMS,DM,HTN,CHOL, PARKINSON,DIVERTICS,GIB,HFpEF, now admitted with GIB for a w /u. Pt in in NAD CXR now revealing a new pleural effusion. Pt is breathing comfortably. Please increase Diovan from 160 to 320 mg daily. Consider increasing clonidine if above measures are not sufficient to control the blood pressure. No need for further cardiac work-up at this point. The patient has chronic pleural effusions. Would keep on Lasix 40 mg p.o. daily standing. No need for cardiac monitoring. Please do not hesitate to call us PRN.
[2019-03-23] MEDS ORDERED: INSULIN (NOVOLOG) ASPART 100 UNITS/ML 10ML VIAL ONE ×2 (17:13→17:26)
--- NOTE | 2019-03-23 17:18 | PN ---
Progress Note, Physician History of Present Illness: Pt seen and examined at bedside. She is out of bed to chair. She denies shortness of breath today. - Current Medication List Current Medications: Active Medications Acetaminophen (Tylenol -) 650 mg PO Q4H PRN PRN Reason: PAIN LEVEL 6-10 Last Admin: 03/22/19 06:04 Dose: 650 mg Albuterol/Ipratropium (Duoneb -) 1 amp NEB Q6H PRN PRN Reason: SHORTNESS OF BREATH Last Admin: 03/18/19 07:46 Dose: 1 amp Bupropion HCl (Wellbutrin Xl -) 150 mg PO DAILY [facility] Last Admin: 03/23/19 09:16 Dose: 150 mg Clonidine HCl (Catapres Tts Patch -) 0.2 mg TD Q7D@1000 [facility] Last Admin: 03/23/19 11:47 Dose: 0.2 mg Dicyclomine HCl (Bentyl -) 10 mg PO Q6H PRN PRN Reason: MUSCLE SPASMS Last Admin: 03/20/19 06:46 Dose: 10 mg Docusate Sodium (Colace -) 100 mg PO [facility] Last Admin: 03/22/19 21:41 Dose: Not Given Hydralazine HCl (Apresoline -) 100 mg PO TID [facility] Last Admin: 03/23/19 13:39 Dose: 100 mg Metronidazole (Flagyl 500mg Premixed Ivpb -) 500 mg in 100 mls @ 100 mls/hr IVPB Q8H-IV [facility] Last Admin: 03/23/19 09:16 Dose: 100 mls/hr Insulin Aspart (Novolog Vial Sliding Scale -) 1 vial SQ TIDAC [facility]; Protocol Last Admin: 03/23/19 12:01 Dose: Not Given Labetalol HCl (Normodyne -) 200 mg PO TID [facility] Last Admin: 03/23/19 13:39 Dose: 200 mg Levothyroxine Sodium (Synthroid -) 25 mcg PO DAILY@0700 [facility] Last Admin: 03/23/19 06:09 Dose: 25 mcg Mirtazapine (Remeron -) 30 mg PO [facility] Last Admin: 03/22/19 21:42 Dose: 30 mg Morphine Sulfate (Morphine Sulfate) 2 mg IVPUSH Q6H PRN PRN Reason: PAIN LEVEL 7 - 10 Last Admin: 03/22/19 11:13 Dose: 2 mg Nifedipine (Procardia Xl -) 60 mg PO BID [facility] Last Admin: 03/23/19 09:16 Dose: 60 mg Ondansetron HCl (Zofran Injection) 4 mg IVPUSH Q8H PRN PRN Reason: NAUSEA Pancrelipase (Creon Dr 36,000 Units Capsule) 1 cap PO TIDCM [facility] Last Admin: 03/23/19 11:47 Dose: 1 cap Pantoprazole Sodium (Protonix Iv) 40 mg IVPUSH DAILY [facility] Last Admin: 03/23/19 09:15 Dose: 40 mg Polyethylene Glycol (Miralax (For Daily Use) -) 17 gm PO BID [facility] Last Admin: 03/23/19 09:16 Dose: Not Given Senna (Senna -) 2 tab PO HS PRN PRN Reason: CONSTIPATION Last Admin: 03/19/19 20:51 Dose: 2 tab Valsartan (Diovan -) 160 mg PO DAILY [facility] - Objective Vital Signs: Vital Signs Temperature 98.3 F 03/23/19 15:00 Pulse Rate 67 03/23/19 15:00 Respiratory Rate 22 H 03/23/19 15:00 Blood Pressure 147/65 03/23/19 15:00 O2 Sat by Pulse Oximetry (%) 98 03/23/19 09:00 Constitutional: Yes: Calm Eyes: Yes: Conjunctiva Clear HENT: Yes: Atraumatic Neck: Yes: Supple Cardiovascular: Yes: S1, S2 Respiratory: Yes: CTA Bilaterally, On Nasal O2 Gastrointestinal: Yes: Normal Bowel Sounds, Soft Genitourinary: Yes: WNL Musculoskeletal: Yes: WNL Edema: No Neurological: Yes: Oriented Psychiatric: Yes: Oriented Labs: CBC, BMP 03/23/19 06:20 03/23/19 06:20 Assessment/Plan Current Medications Generic Name Dose Route Start Last Admin Trade Name Freq PRN Reason Stop Dose Admin Acetaminophen 650 mg 03/15/19 22:32 03/22/19 06:04 Tylenol - PO 650 mg Q4H PRN Administration PAIN LEVEL 6-10 Albuterol/Ipratropium 1 amp 03/16/19 00:34 03/18/19 07:46 Duoneb - NEB 1 amp Q6H PRN Administration SHORTNESS OF BREATH Bupropion HCl 150 mg 03/16/19 10:00 03/23/19 09:16 Wellbutrin Xl - PO 150 mg DAILY [facility] Administration Clonidine HCl 0.2 mg 03/23/19 11:15 03/23/19 11:47 Catapres Tts Patch - TD 0.2 mg Q7D@1000 [facility] Administration Dicyclomine HCl 10 mg 03/15/19 22:37 03/20/19 06:46 Bentyl - PO 10 mg Q6H PRN Administration MUSCLE SPASMS Docusate Sodium 100 mg 03/16/19 22:00 03/22/19 21:41 Colace - PO Not Given HS [facility] Hydralazine HCl 100 mg 03/22/19 22:00 03/23/19 13:39 Apresoline - PO 100 mg TID [facility] Administration Metronidazole 500 mg in 100 mls @ 100 mls/hr 03/22/19 18:00 03/23/19 09:16 Flagyl 500mg Premixed Ivpb - IVPB 100 mls/hr Q8H-IV [facility] Administration Insulin Aspart 1 vial 03/16/19 07:00 03/23/19 12:01 Novolog Vial Sliding Scale - SQ Not Given TIDAC [facility] Protocol Labetalol HCl 200 mg 03/16/19 22:00 03/23/19 13:39 Normodyne - PO 200 mg TID [facility] Administration Levothyroxine Sodium 25 mcg 03/17/19 07:00 03/23/19 06:09 Synthroid - PO 25 mcg DAILY@0700 [facility] Administration Mirtazapine 30 mg 03/16/19 22:00 03/22/19 21:42 Remeron - PO 30 mg HS [facility] Administration Morphine Sulfate 2 mg 03/22/19 10:32 03/22/19 11:13 Morphine Sulfate IVPUSH 2 mg Q6H PRN Administration PAIN LEVEL 7 - 10 Nifedipine 60 mg 03/16/19 22:00 03/23/19 09:16 Procardia Xl - PO 60 mg BID [facility] Administration Ondansetron HCl 4 mg 03/22/19 18:22 Zofran Injection IVPUSH Q8H PRN NAUSEA Pancrelipase 1 cap 03/16/19 12:00 03/23/19 11:[address] 36,000 Units Capsule PO 1 cap TIDCM [facility] Administration Pantoprazole Sodium 40 mg 03/20/19 10:00 03/23/19 09:15 Protonix Iv IVPUSH 40 mg DAILY [facility] Administration Polyethylene Glycol 17 gm 03/15/19 22:45 03/23/19 09:16 Miralax (For Daily Use) - PO Not Given BID [facility] Senna 2 tab 03/16/19 22:00 03/19/19 20:51 Senna - PO 2 tab HS PRN Administration CONSTIPATION Valsartan 160 mg 03/24/19 10:00 Diovan - PO DAILY [facility] Impression 1. JASPER 2. CKD 3. HLD 4.diverticulosis 5. HTN 6. DM 7. proteinuria 8. hypoalbuminemia 9. UTI 10. pleural effusion Impression - renal function imprioved - d/c fluids - cont lasix - monitor lytes - discussed with primary team
[2019-03-23] MEDS ORDERED: PT OWN MED DRAWER 7, Y5N ONE (17:27)
[2019-03-23 18:07] LABS: FREE KAPPA,SERUM 82.9 mg/L (3.3-19.4)
[2019-03-23] MEDS: MIRTAZAPINE 15 MG TABLET (FP) PO SCH (21:50)
[2019-03-23] MEDS: DOCUSATE SODIUM 100 MG CAPSULE (FP) PO SCH (21:50)
[2019-03-23] MEDS: ONDANSETRON 4 MG/2 ML VIAL IVPUSH PRN (22:35)
[2019-03-24] MEDS: hydrALAZINE HCL 50 MG TABLET (FP) PO SCH ×3 (05:59→21:37)
[2019-03-24] MEDS: LABETALOL HCL 200 MG TABLET (FP) PO SCH ×3 (05:59→21:38)
[2019-03-24] MEDS: LEVOTHYROXINE NA 25 MCG TABLET (FP) PO SCH (06:00)
[2019-03-24] MEDS: INSULIN SLIDING SCALE (NOVOLOG) 1 VIAL SQ SCH ×3 (06:00→18:40)
[2019-03-24 07:43] LABS: BASO % 0.6 % (0-2.0); EOS % 6.3 % (0-4.5); HEMATOCRIT 30.2 % (32.4-45.2); HEMOGLOBIN 10.3 GM/dL (10.7-15.3); LYMPH % 7.5 % (8-40); MCH 29.4 pg (25.7-33.7); MCHC 34.1 g/dl (32.0-36.0); MEAN PLT VOLUME 6.9 fl (7.5-11.1); MONO % 10.4 % (3.8-10.2); NEUT % 75.2 % (42.8-82.8); PLATELET COUNT 497 K/MM3 (134-434); RBC 3.51 M/mm3 (3.60-5.2); RDW 14.4 % (11.6-15.6); WHITE BLOOD COUNT 9.2 K/mm3 (4.0-10.0)
--- NOTE | 2019-03-24 08:06 | PN ---
Progress Note, Physician - Current Medication List Current Medications: Active Medications Acetaminophen (Tylenol -) 650 mg PO Q4H PRN PRN Reason: PAIN LEVEL 6-10 Last Admin: 03/22/19 06:04 Dose: 650 mg Albuterol/Ipratropium (Duoneb -) 1 amp NEB Q6H PRN PRN Reason: SHORTNESS OF BREATH Last Admin: 03/18/19 07:46 Dose: 1 amp Bupropion HCl (Wellbutrin Xl -) 150 mg PO DAILY [facility] Last Admin: 03/23/19 09:16 Dose: 150 mg Clonidine HCl (Catapres Tts Patch -) 0.2 mg TD Q7D@1000 [facility] Last Admin: 03/23/19 11:47 Dose: 0.2 mg Dicyclomine HCl (Bentyl -) 10 mg PO Q6H PRN PRN Reason: MUSCLE SPASMS Last Admin: 03/20/19 06:46 Dose: 10 mg Docusate Sodium (Colace -) 100 mg PO [facility] Last Admin: 03/23/19 21:50 Dose: 100 mg Furosemide (Lasix -) 40 mg PO DAILY [facility] Hydralazine HCl (Apresoline -) 100 mg PO TID [facility] Last Admin: 03/24/19 05:59 Dose: 100 mg Metronidazole (Flagyl 500mg Premixed Ivpb -) 500 mg in 100 mls @ 100 mls/hr IVPB Q8H-IV [facility] Last Admin: 03/24/19 01:31 Dose: 100 mls/hr Insulin Aspart (Novolog Vial Sliding Scale -) 1 vial SQ TIDAC [facility]; Protocol Last Admin: 03/24/19 06:00 Dose: Not Given Labetalol HCl (Normodyne -) 200 mg PO TID [facility] Last Admin: 03/24/19 05:59 Dose: 200 mg Levothyroxine Sodium (Synthroid -) 25 mcg PO DAILY@0700 [facility] Last Admin: 03/24/19 06:00 Dose: 25 mcg Mirtazapine (Remeron -) 30 mg PO [facility] Last Admin: 03/23/19 21:50 Dose: 30 mg Morphine Sulfate (Morphine Sulfate) 2 mg IVPUSH Q6H PRN PRN Reason: PAIN LEVEL 7 - 10 Last Admin: 03/22/19 11:13 Dose: 2 mg Nifedipine (Procardia Xl -) 60 mg PO BID [facility] Last Admin: 03/23/19 21:50 Dose: 60 mg Ondansetron HCl (Zofran Injection) 4 mg IVPUSH Q8H PRN PRN Reason: NAUSEA Last Admin: 03/23/19 22:35 Dose: 4 mg Pancrelipase (Creon Dr 36,000 Units Capsule) 1 cap PO TIDCM [facility] Last Admin: 03/23/19 17:19 Dose: 1 cap Pantoprazole Sodium (Protonix Iv) 40 mg IVPUSH DAILY [facility] Last Admin: 03/23/19 09:15 Dose: 40 mg Polyethylene Glycol (Miralax (For Daily Use) -) 17 gm PO BID [facility] Last Admin: 03/23/19 21:51 Dose: Not Given Senna (Senna -) 2 tab PO HS PRN PRN Reason: CONSTIPATION Last Admin: 03/19/19 20:51 Dose: 2 tab Valsartan (Diovan -) 160 mg PO BID [facility] - Objective Vital Signs: Vital Signs Temperature 98.7 F 03/24/19 05:56 Pulse Rate 68 03/24/19 05:56 Respiratory Rate 20 03/24/19 05:56 Blood Pressure 159/60 03/24/19 05:56 O2 Sat by Pulse Oximetry (%) 98 03/23/19 20:21 Cardiovascular: Yes: S1, S2 Respiratory: Yes: Regular, Rales (at bases) Gastrointestinal: Yes: Normal Bowel Sounds, Soft Problem List - Problems (1) Emphysematous cystitis Code(s): N30.80 - OTHER CYSTITIS WITHOUT HEMATURIA (2) Constipation Code(s): K59.00 - CONSTIPATION, UNSPECIFIED (3) Diabetes Code(s): E11.9 - TYPE 2 DIABETES MELLITUS WITHOUT COMPLICATIONS (4) HTN (hypertension) Code(s): I10 - ESSENTIAL (PRIMARY) HYPERTENSION Assessment/Plan - Problems (1) Cystitis Assessment/Plan: -IV ceftriaxone- completed 8 days -UC contaminated Problems reviewed: Yes Code(s): N30.90 - CYSTITIS, UNSPECIFIED WITHOUT HEMATURIA (2) Acute on chronic diastolic heart failure Assessment/Plan: -Cardiology to re-evaluated -D/C IVF -CXR pleural effusion- which seems to be chronic-worsening -Furosemide 40 iv bid -Low sodium diabetic diet Problems reviewed: Yes Code(s): I50.33 - ACUTE ON CHRONIC DIASTOLIC (CONGESTIVE) HEART FAILURE (3) Anemia Assessment/Plan: -Stool OB still pending -EGD cancelled -GI on board -H/H stable Problems reviewed: Yes Code(s): D64.9 - ANEMIA, UNSPECIFIED (4) Intractable abdominal pain Assessment/Plan: -Abd/pel CT unremarkable -Chronic abd pain -Started on Flagyl Problems reviewed: Yes Code(s): R10.9 - UNSPECIFIED ABDOMINAL PAIN (5) HTN (hypertension) Assessment/Plan: -Increase clonidine to 0.2 mg Qweekly -Cardiology to re-evaluated--diovan 160 bid -Would increase valsartan to 320 if needed -monitor trend Problems reviewed: Yes Code(s): I10 - ESSENTIAL (PRIMARY) HYPERTENSION
[2019-03-24 08:07] LABS: BLOOD UREA NITROGEN 35.5 mg/dL (7-18); CALCIUM 8.9 mg/dL (8.5-10.1); CREATININE 1.3 mg/dL (0.55-1.3); POTASSIUM 4.2 mmol/L (3.5-5.1)
[2019-03-24] MEDS ORDERED: VALSARTAN 160 MG TABLET (UD) PO SCH ×2 (10:00)
[2019-03-24] MEDS ORDERED: FUROSEMIDE 40 MG TABLET (FP) PO SCH (10:00)
[2019-03-24] MEDS: PANTOPRAZOLE SODIUM 40 MG VIAL IVPUSH SCH (10:10)
[2019-03-24] MEDS: VALSARTAN 160 MG TABLET (UD) PO SCH ×2 (10:10→21:39)
[2019-03-24] MEDS: LIPASE/PROTEASE/AMYLASE 36,000 UNIT CAPSULE PO SCH ×3 (10:11→17:13)
[2019-03-24] MEDS: ONDANSETRON 4 MG/2 ML VIAL IVPUSH PRN ×2 (10:11→21:36)
[2019-03-24] MEDS: NIFEdipine E.R 60 MG TABLET (UD) PO SCH ×2 (10:11→21:40)
[2019-03-24] MEDS: POLYETHYLENE GLYCOL 3350 119 GM BTL PO SCH ×2 (10:32→21:39)
--- NOTE | 2019-03-24 11:56 | PN ---
Progress Note (short form) - Note Progress Note: NAD on NC O2. No acute events overnight. Intake & Output 03/21/19 03/22/19 03/23/19 03/24/19 23:59 23:59 23:59 23:59 Intake Total 500 220 494 230 Output Total 5 2 Balance 500 215 492 230 Weight 129 lb 9 oz Last Vital Signs Temp Pulse Resp BP Pulse Ox 98.2 F 67 20 165/54 L 98 03/24/19 10:00 03/24/19 10:00 03/24/19 10:00 03/24/19 10:00 03/24/19 09:00 Active Medications Acetaminophen (Tylenol -) 650 mg PO Q4H PRN PRN Reason: PAIN LEVEL 6-10 Last Admin: 03/22/19 06:04 Dose: 650 mg Albuterol/Ipratropium (Duoneb -) 1 amp NEB Q6H PRN PRN Reason: SHORTNESS OF BREATH Last Admin: 03/18/19 07:46 Dose: 1 amp Bupropion HCl (Wellbutrin Xl -) 150 mg PO DAILY [facility] Last Admin: 03/24/19 10:10 Dose: 150 mg Clonidine HCl (Catapres Tts Patch -) 0.2 mg TD Q7D@1000 [facility] Last Admin: 03/23/19 11:47 Dose: 0.2 mg Dicyclomine HCl (Bentyl -) 10 mg PO Q6H PRN PRN Reason: MUSCLE SPASMS Last Admin: 03/20/19 06:46 Dose: 10 mg Docusate Sodium (Colace -) 100 mg PO HS [facility] Last Admin: 03/23/19 21:50 Dose: 100 mg Furosemide (Lasix Injection -) 40 mg IVPUSH BID@0600,1400 [facility] Hydralazine HCl (Apresoline -) 100 mg PO TID [facility] Last Admin: 03/24/19 05:59 Dose: 100 mg Metronidazole (Flagyl 500mg Premixed Ivpb -) 500 mg in 100 mls @ 100 mls/hr IVPB Q8H-IV [facility] Last Admin: 03/24/19 10:11 Dose: 100 mls/hr Insulin Aspart (Novolog Vial Sliding Scale -) 1 vial SQ TIDAC [facility]; Protocol Last Admin: 03/24/19 06:00 Dose: Not Given Labetalol HCl (Normodyne -) 200 mg PO TID [facility] Last Admin: 03/24/19 05:59 Dose: 200 mg Levothyroxine Sodium (Synthroid -) 25 mcg PO DAILY@0700 [facility] Last Admin: 03/24/19 06:00 Dose: 25 mcg Mirtazapine (Remeron -) 30 mg PO HS [facility] Last Admin: 03/23/19 21:50 Dose: 30 mg Morphine Sulfate (Morphine Sulfate) 2 mg IVPUSH Q6H PRN PRN Reason: PAIN LEVEL 7 - 10 Last Admin: 03/22/19 11:13 Dose: 2 mg Nifedipine (Procardia Xl -) 60 mg PO BID [facility] Last Admin: 03/24/19 10:11 Dose: 60 mg Ondansetron HCl (Zofran Injection) 4 mg IVPUSH Q8H PRN PRN Reason: NAUSEA Last Admin: 03/24/19 10:11 Dose: 4 mg Pancrelipase (Creon Dr 36,000 Units Capsule) 1 cap PO TIDCM [facility] Last Admin: 03/24/19 10:11 Dose: 1 cap Pantoprazole Sodium (Protonix Iv) 40 mg IVPUSH DAILY [facility] Last Admin: 03/24/19 10:10 Dose: 40 mg Polyethylene Glycol (Miralax (For Daily Use) -) 17 gm PO BID [facility] Last Admin: 03/24/19 10:32 Dose: Not Given Senna (Senna -) 2 tab PO HS PRN PRN Reason: CONSTIPATION Last Admin: 03/19/19 20:51 Dose: 2 tab Valsartan (Diovan -) 160 mg PO BID [facility] Last Admin: 03/24/19 10:10 Dose: 160 mg Gen: NAD at rest Heart: RRR Lung: decreased breath sounds at the bases Abd: soft, nontender Ext: no edema Laboratory Results - last 24 hr 03/20/19 03/21/19 03/21/19 09:20 06:55 06:55 WBC RBC Hgb Hct 31.4 L MCV MCH MCHC RDW Plt Count MPV Absolute Neuts (auto) Neutrophils % Lymphocytes % Monocytes % Eosinophils % Basophils % Nucleated RBC % Sodium Potassium Chloride Carbon Dioxide Anion Gap BUN Creatinine Est GFR (CKD-EPI)AfAm Est GFR (CKD-EPI)NonAf POC Glucometer Random Glucose Calcium Folate 925 Folate Hemolysate 290.3 Serum CARMEN Interpret IEP IgG 1097 IEP IgA 236 IEP IgM 54 Free Cowen LC, Quant 82.9 H Free Lambda LC, Quant 39.3 H Free Cowen/Lambda Ratio 2.11 H Blood Type A POSITIVE Antibody Screen Negative Crossmatch See Detail 03/23/19 03/24/19 03/24/19 17:08 05:54 06:45 WBC RBC Hgb Hct MCV MCH MCHC RDW Plt Count MPV Absolute Neuts (auto) Neutrophils % Lymphocytes % Monocytes % Eosinophils % Basophils % Nucleated RBC % Sodium 145 Potassium 4.2 Chloride 112 H Carbon Dioxide 26 Anion Gap 7 L BUN 35.5 H Creatinine 1.3 Est GFR (CKD-EPI)AfAm 45.83 Est GFR (CKD-EPI)NonAf 39.54 POC Glucometer 215 121 Random Glucose 139 H Calcium 8.9 Folate Folate Hemolysate Serum CARMEN Interpret IEP IgG IEP IgA IEP IgM Free Cowen LC, Quant Free Lambda LC, Quant Free Cowen/Lambda Ratio Blood Type Antibody Screen Crossmatch 03/24/19 03/24/19 06:45 11:28 WBC 9.2 RBC 3.51 L Hgb 10.3 L Hct 30.2 L MCV 86.0 MCH 29.4 MCHC 34.1 RDW 14.4 Plt Count 497 H MPV 6.9 L Absolute Neuts (auto) 6.9 Neutrophils % 75.2 Lymphocytes % 7.5 L D Monocytes % 10.4 H Eosinophils % 6.3 H D Basophils % 0.6 Nucleated RBC % 0 Sodium Potassium Chloride Carbon Dioxide Anion Gap BUN Creatinine Est GFR (CKD-EPI)AfAm Est GFR (CKD-EPI)NonAf POC Glucometer 161 Random Glucose Calcium Folate Folate Hemolysate Serum CARMEN Interpret IEP IgG IEP IgA IEP IgM Free Cowen LC, Quant Free Lambda LC, Quant Free Cowen/Lambda Ratio Blood Type Antibody Screen Crossmatch Problem List - Problems (1) Acute on chronic diastolic heart failure Code(s): I50.33 - ACUTE ON CHRONIC DIASTOLIC (CONGESTIVE) HEART FAILURE (2) Pulmonary HTN Code(s): I27.20 - PULMONARY HYPERTENSION, UNSPECIFIED A/P Mild Acute on Chronic Diastolic Heart Failure Pulmonary HTN Acute on Chronic Renal Failure HTN DM Parkinsons Dementia Anemia - Lasix - monitor urine output, creatinine - O2 to keep Spo2 >90% - protonix - DVT prophylaxis - DC planning Dr Zee
[2019-03-24] MEDS: FUROSEMIDE 40 MG/4 ML INJECTABLE VIAL IVPUSH SCH (15:07)
--- NOTE | 2019-03-24 16:52 | PN ---
Progress Note, Physician History of Present Illness: Pt seen and examined at bedside. SHe is awake and alert. - Current Medication List Current Medications: Active Medications Acetaminophen (Tylenol -) 650 mg PO Q4H PRN PRN Reason: PAIN LEVEL 6-10 Last Admin: 03/22/19 06:04 Dose: 650 mg Albuterol/Ipratropium (Duoneb -) 1 amp NEB Q6H PRN PRN Reason: SHORTNESS OF BREATH Last Admin: 03/18/19 07:46 Dose: 1 amp Bupropion HCl (Wellbutrin Xl -) 150 mg PO DAILY [facility] Last Admin: 03/24/19 10:10 Dose: 150 mg Clonidine HCl (Catapres Tts Patch -) 0.2 mg TD Q7D@1000 [facility] Last Admin: 03/23/19 11:47 Dose: 0.2 mg Dicyclomine HCl (Bentyl -) 10 mg PO Q6H PRN PRN Reason: MUSCLE SPASMS Last Admin: 03/20/19 06:46 Dose: 10 mg Docusate Sodium (Colace -) [address] [facility] Last Admin: 03/23/19 21:50 Dose: 100 mg Furosemide (Lasix Injection -) 40 mg IVPUSH BID@0600,1400 [facility] Last Admin: 03/24/19 15:07 Dose: 40 mg Hydralazine HCl (Apresoline -) 100 mg PO TID [facility] Last Admin: 03/24/19 15:07 Dose: 100 mg Metronidazole (Flagyl 500mg Premixed Ivpb -) 500 mg in 100 mls @ 100 mls/hr IVPB Q8H-IV [facility] Last Admin: 03/24/19 10:11 Dose: 100 mls/hr Insulin Aspart (Novolog Vial Sliding Scale -) 1 vial SQ TIDAC [facility]; Protocol Last Admin: 03/24/19 13:49 Dose: Not Given Labetalol HCl (Normodyne -) 200 mg PO TID [facility] Last Admin: 03/24/19 15:07 Dose: 200 mg Levothyroxine Sodium (Synthroid -) 25 mcg PO DAILY@0700 [facility] Last Admin: 03/24/19 06:00 Dose: 25 mcg Mirtazapine (Remeron -) [address] [facility] Last Admin: 03/23/19 21:50 Dose: 30 mg Morphine Sulfate (Morphine Sulfate) 2 mg IVPUSH Q6H PRN PRN Reason: PAIN LEVEL 7 - 10 Last Admin: 03/22/19 11:13 Dose: 2 mg Nifedipine (Procardia Xl -) 60 mg PO BID [facility] Last Admin: 03/24/19 10:11 Dose: 60 mg Ondansetron HCl (Zofran Injection) 4 mg IVPUSH Q8H PRN PRN Reason: NAUSEA Last Admin: 03/24/19 10:11 Dose: 4 mg Pancrelipase (Creon Dr 36,000 Units Capsule) 1 cap PO TIDCM [facility] Last Admin: 03/24/19 13:49 Dose: Not Given Pantoprazole Sodium (Protonix Iv) 40 mg IVPUSH DAILY [facility] Last Admin: 03/24/19 10:10 Dose: 40 mg Polyethylene Glycol (Miralax (For Daily Use) -) 17 gm PO BID [facility] Last Admin: 03/24/19 10:32 Dose: Not Given Senna (Senna -) 2 tab PO HS PRN PRN Reason: CONSTIPATION Last Admin: 03/19/19 20:51 Dose: 2 tab Valsartan (Diovan -) 160 mg PO BID [facility] Last Admin: 03/24/19 10:10 Dose: 160 mg - Objective Vital Signs: Vital Signs Temperature 97.9 F 03/24/19 14:18 Pulse Rate 63 03/24/19 14:18 Respiratory Rate 18 03/24/19 14:18 Blood Pressure 143/56 L 03/24/19 14:18 O2 Sat by Pulse Oximetry (%) 98 03/24/19 09:00 Constitutional: Yes: Calm Eyes: Yes: Conjunctiva Clear HENT: Yes: Atraumatic Neck: Yes: Supple Cardiovascular: Yes: S1, S2 Respiratory: Yes: CTA Bilaterally Gastrointestinal: Yes: Soft Genitourinary: Yes: WNL Musculoskeletal: Yes: WNL Edema: No Neurological: Yes: Oriented Psychiatric: Yes: Oriented Labs: CBC, BMP 03/24/19 06:45 03/24/19 06:45 Assessment/Plan Current Medications Generic Name Dose Route Start Last Admin Trade Name Freq PRN Reason Stop Dose Admin Acetaminophen 650 mg 03/15/19 22:32 03/22/19 06:04 Tylenol - PO 650 mg Q4H PRN Administration PAIN LEVEL 6-10 Albuterol/Ipratropium 1 amp 03/16/19 00:34 03/18/19 07:46 Duoneb - NEB 1 amp Q6H PRN Administration SHORTNESS OF BREATH Bupropion HCl 150 mg 03/16/19 10:00 03/24/19 10:10 Wellbutrin Xl - PO 150 mg DAILY [facility] Administration Clonidine HCl 0.2 mg 03/23/19 11:15 03/23/19 11:47 Catapres Tts Patch - TD 0.2 mg Q7D@1000 [facility] Administration Dicyclomine HCl 10 mg 03/15/19 22:37 03/20/19 06:46 Bentyl - PO 10 mg Q6H PRN Administration MUSCLE SPASMS Docusate Sodium 100 mg 03/16/19 22:00 03/23/19 21:50 Colace - PO 100 mg HS [facility] Administration Furosemide 40 mg 03/24/19 14:00 03/24/19 15:07 Lasix Injection - IVPUSH 40 mg BID@0600,1400 [facility] Administration Hydralazine HCl 100 mg 03/22/19 22:00 03/24/19 15:07 Apresoline - PO 100 mg TID [facility] Administration Metronidazole 500 mg in 100 mls @ 100 mls/hr 03/22/19 18:00 03/24/19 10:11 Flagyl 500mg Premixed Ivpb - IVPB 100 mls/hr Q8H-IV [facility] Administration Insulin Aspart 1 vial 03/16/19 07:00 03/24/19 13:49 Novolog Vial Sliding Scale - SQ Not Given TIDAC [facility] Protocol Labetalol HCl 200 mg 03/16/19 22:00 03/24/19 15:07 Normodyne - PO 200 mg TID [facility] Administration Levothyroxine Sodium 25 mcg 03/17/19 07:00 03/24/19 06:00 Synthroid - PO 25 mcg DAILY@0700 [facility] Administration Mirtazapine 30 mg 03/16/19 22:00 03/23/19 21:50 Remeron - PO 30 mg HS [facility] Administration Morphine Sulfate 2 mg 03/22/19 10:32 03/22/19 11:13 Morphine Sulfate IVPUSH 2 mg Q6H PRN Administration PAIN LEVEL 7 - 10 Nifedipine 60 mg 03/16/19 22:00 03/24/19 10:11 Procardia Xl - PO 60 mg BID [facility] Administration Ondansetron HCl 4 mg 03/22/19 18:22 03/24/19 10:11 Zofran Injection IVPUSH 4 mg Q8H PRN Administration NAUSEA Pancrelipase 1 cap 03/16/19 12:00 03/24/19 13:49 Elaine Sweeney 36,000 Units Capsule PO Not Given TIDCM [facility] Pantoprazole Sodium 40 mg 03/20/19 10:00 03/24/19 10:10 Protonix Iv IVPUSH 40 mg DAILY [facility] Administration Polyethylene Glycol 17 gm 03/15/19 22:45 03/24/19 10:32 Miralax (For Daily Use) - PO Not Given BID [facility] Senna 2 tab 03/16/19 22:00 03/19/19 20:51 Senna - PO 2 tab HS PRN Administration CONSTIPATION Valsartan 160 mg 03/24/19 10:00 03/24/19 10:10 Diovan - PO 160 mg BID [facility] Administration Impression 1. JASPER 2. CKD 3. HLD 4.diverticulosis 5. HTN 6. DM 7. proteinuria 8. hypoalbuminemia 9. UTI 10. pleural effusion Impression - renal function is improved - cont lasix - monitor volume status - cxr worse - monitor lytes
[2019-03-24] MEDS: DOCUSATE SODIUM 100 MG CAPSULE (FP) PO SCH (21:39)
[2019-03-24] MEDS: MIRTAZAPINE 15 MG TABLET (FP) PO SCH (21:41)
[2019-03-25] MEDS: MORPHINE SULFATE 2 MG/ML VIAL IVPUSH PRN ×2 (03:28→08:43)
[2019-03-25] MEDS ORDERED: INSULIN (NOVOLOG) ASPART 100 UNITS/ML 10ML VIAL ONE ×2 (05:22→12:10)
[2019-03-25] MEDS: FUROSEMIDE 40 MG/4 ML INJECTABLE VIAL IVPUSH SCH (05:39)
[2019-03-25] MEDS: hydrALAZINE HCL 50 MG TABLET (FP) PO SCH ×3 (05:39→22:13)
[2019-03-25] MEDS: LABETALOL HCL 200 MG TABLET (FP) PO SCH ×3 (05:39→22:14)
[2019-03-25] MEDS: INSULIN SLIDING SCALE (NOVOLOG) 1 VIAL SQ SCH ×3 (06:45→17:03)
[2019-03-25] MEDS: LEVOTHYROXINE NA 25 MCG TABLET (FP) PO SCH (06:45)
[2019-03-25 07:23] LABS: BASO % 0.6 % (0-2.0); EOS % 5.2 % (0-4.5); HEMOGLOBIN 10.2 GM/dL (10.7-15.3); LYMPH % 5.8 % (8-40); MCH 28.9 pg (25.7-33.7); MCHC 32.8 g/dl (32.0-36.0); MEAN CELL VOLUME 88.2 fl (80-96); MEAN PLT VOLUME 7.3 fl (7.5-11.1); NEUT % 78.4 % (42.8-82.8); PLATELET COUNT 502 K/MM3 (134-434); RBC 3.52 M/mm3 (3.60-5.2); RDW 14.7 % (11.6-15.6); WHITE BLOOD COUNT 10.3 K/mm3 (4.0-10.0)
[2019-03-25 07:47] LABS: ALBUMIN 2.9 g/dl (3.4-5.0); BILIRUBIN,TOTAL 0.3 mg/dL (0.2-1); BLOOD UREA NITROGEN 39.6 mg/dL (7-18); CALCIUM 8.5 mg/dL (8.5-10.1); CREATININE 1.7 mg/dL (0.55-1.3); MAGNESIUM 2.3 mg/dL (1.8-2.4); POTASSIUM 4.6 mmol/L (3.5-5.1); TOT PROT 6.1 g/dl (6.4-8.2)
[2019-03-25] MEDS: ONDANSETRON 4 MG/2 ML VIAL IVPUSH PRN (08:43)
[2019-03-25] MEDS: NIFEdipine E.R 60 MG TABLET (UD) PO SCH ×2 (09:13→22:14)
[2019-03-25] MEDS: VALSARTAN 160 MG TABLET (UD) PO SCH (09:13)
[2019-03-25] MEDS: LIPASE/PROTEASE/AMYLASE 36,000 UNIT CAPSULE PO SCH ×3 (09:14→17:00)
[2019-03-25] MEDS: POLYETHYLENE GLYCOL 3350 119 GM BTL PO SCH ×2 (09:14→22:14)
[2019-03-25] MEDS: PANTOPRAZOLE SODIUM 40 MG VIAL IVPUSH SCH (09:14)
--- NOTE | 2019-03-25 10:17 | PN ---
Progress Note (short form) - Note Progress Note: Renal follow up for JASPER and volume overload Seen and examined at the bedside denies any overt shortness of breath denies chest pain making urine tolerating diet Vital Signs Temperature 98 F 03/25/19 08:59 Pulse Rate 64 03/25/19 08:59 Respiratory Rate 18 03/25/19 08:59 Blood Pressure 155/54 L 03/25/19 08:59 O2 Sat by Pulse Oximetry (%) 98 03/25/19 08:33 Intake & Output 03/22/19 03/23/19 03/24/19 03/25/19 23:59 23:59 23:59 23:59 Intake Total 220 494 530 100 Output Total 5 2 Balance 215 492 530 100 Weight 58.769 kg NAD awake and alert Dec BS at lung bases no LE edema CBC, BMP 03/25/19 06:15 03/25/19 06:15 Current Medications Acetaminophen (Tylenol -) 650 mg PO Q4H PRN PRN Reason: PAIN LEVEL 6-10 Last Admin: 03/22/19 06:04 Dose: 650 mg Albuterol/Ipratropium (Duoneb -) 1 amp NEB Q6H PRN PRN Reason: SHORTNESS OF BREATH Last Admin: 03/18/19 07:46 Dose: 1 amp Bupropion HCl (Wellbutrin Xl -) 150 mg PO DAILY [facility] Last Admin: 03/25/19 09:13 Dose: 150 mg Clonidine HCl (Catapres Tts Patch -) 0.2 mg TD Q7D@1000 [facility] Last Admin: 03/23/19 11:47 Dose: 0.2 mg Dicyclomine HCl (Bentyl -) 10 mg PO Q6H PRN PRN Reason: MUSCLE SPASMS Last Admin: 03/20/19 06:46 Dose: 10 mg Docusate Sodium (Colace -) 100 mg PO HS [facility] Last Admin: 03/24/19 21:39 Dose: 100 mg Furosemide (Lasix Injection -) 40 mg IVPUSH BID@0600,1400 [facility] Last Admin: 03/25/19 05:39 Dose: 40 mg Hydralazine HCl (Apresoline -) 100 mg PO TID [facility] Last Admin: 03/25/19 05:39 Dose: 100 mg Metronidazole (Flagyl 500mg Premixed Ivpb -) 500 mg in 100 mls @ 100 mls/hr IVPB Q8H-IV [facility] Last Admin: 03/25/19 09:17 Dose: 100 mls/hr Insulin Aspart (Novolog Vial Sliding Scale -) 1 vial SQ TIDAC [facility]; Protocol Last Admin: 03/25/19 06:45 Dose: Not Given Labetalol HCl (Normodyne -) 200 mg PO TID [facility] Last Admin: 03/25/19 05:39 Dose: 200 mg Levothyroxine Sodium (Synthroid -) 25 mcg PO DAILY@0700 [facility] Last Admin: 03/25/19 06:45 Dose: 25 mcg Mirtazapine (Remeron -) 30 mg PO HS [facility] Last Admin: 03/24/19 21:41 Dose: 30 mg Morphine Sulfate (Morphine Sulfate) 2 mg IVPUSH Q6H PRN PRN Reason: PAIN LEVEL 7 - 10 Last Admin: 03/25/19 08:43 Dose: 2 mg Nifedipine (Procardia Xl -) 60 mg PO BID [facility] Last Admin: 03/25/19 09:13 Dose: 60 mg Ondansetron HCl (Zofran Injection) 4 mg IVPUSH Q8H PRN PRN Reason: NAUSEA Last Admin: 03/25/19 08:43 Dose: 4 mg Pancrelipase (Creon Dr 36,000 Units Capsule) 1 cap PO TIDCM [facility] Last Admin: 03/25/19 09:14 Dose: 1 cap Pantoprazole Sodium (Protonix Iv) 40 mg IVPUSH DAILY [facility] Last Admin: 03/25/19 09:14 Dose: 40 mg Polyethylene Glycol (Miralax (For Daily Use) -) 17 gm PO BID [facility] Last Admin: 03/25/19 09:14 Dose: 17 gm Senna (Senna -) 2 tab PO HS PRN PRN Reason: CONSTIPATION Last Admin: 03/19/19 20:51 Dose: 2 tab Valsartan (Diovan -) 160 mg PO BID [facility] Last Admin: 03/25/19 09:13 Dose: 160 mg Impression 1. JASPER 2. CKD 3. HLD 4.diverticulosis 5. HTN 6. DM 7. proteinuria 8. hypoalbuminemia 9. UTI 10. pleural effusion Impression Cr up trended today, ? from intravascular volume depletion +/- renal hypoprofusion with ARB Hold PM lasix and Diovan dose Trend BMP daily avoid NSAIDs and nephrotoxins Douglas Moody DO
--- NOTE | 2019-03-25 11:03 | PN ---
Progress Note, Physician Chief Complaint: AWAKE ALERT SITTING UP WITH P.T. C/O GENERALIZED WEAKNESS UNABLE TO SITUP ALONE NEEDING ASSISTANCE TO STABILIZE HERSELF. - Current Medication List Current Medications: Active Medications Acetaminophen (Tylenol -) 650 mg PO Q4H PRN PRN Reason: PAIN LEVEL 6-10 Last Admin: 03/22/19 06:04 Dose: 650 mg Albuterol/Ipratropium (Duoneb -) 1 amp NEB Q6H PRN PRN Reason: SHORTNESS OF BREATH Last Admin: 03/18/19 07:46 Dose: 1 amp Bupropion HCl (Wellbutrin Xl -) 150 mg PO DAILY [facility] Last Admin: 03/25/19 09:13 Dose: 150 mg Clonidine HCl (Catapres Tts Patch -) 0.2 mg TD Q7D@1000 [facility] Last Admin: 03/23/19 11:47 Dose: 0.2 mg Dicyclomine HCl (Bentyl -) 10 mg PO Q6H PRN PRN Reason: MUSCLE SPASMS Last Admin: 03/20/19 06:46 Dose: 10 mg Docusate Sodium (Colace -) 100 mg PO [facility] Last Admin: 03/24/19 21:39 Dose: 100 mg Furosemide (Lasix Injection -) 40 mg IVPUSH DAILY [facility] Hydralazine HCl (Apresoline -) 100 mg PO TID [facility] Last Admin: 03/25/19 05:39 Dose: 100 mg Metronidazole (Flagyl 500mg Premixed Ivpb -) 500 mg in 100 mls @ 100 mls/hr IVPB Q8H-IV [facility] Last Admin: 03/25/19 09:17 Dose: 100 mls/hr Insulin Aspart (Novolog Vial Sliding Scale -) 1 vial SQ TIDAC [facility]; Protocol Last Admin: 03/25/19 06:45 Dose: Not Given Labetalol HCl (Normodyne -) 200 mg PO TID [facility] Last Admin: 03/25/19 05:39 Dose: 200 mg Levothyroxine Sodium (Synthroid -) 25 mcg PO DAILY@0700 [facility] Last Admin: 03/25/19 06:45 Dose: 25 mcg Mirtazapine (Remeron -) 30 mg PO [facility] Last Admin: 03/24/19 21:41 Dose: 30 mg Morphine Sulfate (Morphine Sulfate) 2 mg IVPUSH Q6H PRN PRN Reason: PAIN LEVEL 7 - 10 Last Admin: 03/25/19 08:43 Dose: 2 mg Nifedipine (Procardia Xl -) 60 mg PO BID [facility] Last Admin: 03/25/19 09:13 Dose: 60 mg Ondansetron HCl (Zofran Injection) 4 mg IVPUSH Q8H PRN PRN Reason: NAUSEA Last Admin: 03/25/19 08:43 Dose: 4 mg Pancrelipase (Creon Dr 36,000 Units Capsule) 1 cap PO TIDCM [facility] Last Admin: 03/25/19 09:14 Dose: 1 cap Pantoprazole Sodium (Protonix Iv) 40 mg IVPUSH DAILY [facility] Last Admin: 03/25/19 09:14 Dose: 40 mg Polyethylene Glycol (Miralax (For Daily Use) -) 17 gm PO BID [facility] Last Admin: 03/25/19 09:14 Dose: 17 gm Senna (Senna -) 2 tab PO HS PRN PRN Reason: CONSTIPATION Last Admin: 03/19/19 20:51 Dose: 2 tab Valsartan (Diovan -) 160 mg PO BID [facility] Last Admin: 03/25/19 09:13 Dose: 160 mg - Objective Vital Signs: Vital Signs Temperature 98 F 03/25/19 08:59 Pulse Rate 64 03/25/19 08:59 Respiratory Rate 18 03/25/19 08:59 Blood Pressure 155/54 L 03/25/19 08:59 O2 Sat by Pulse Oximetry (%) 98 03/25/19 08:33 Constitutional: Yes: Mild Distress Cardiovascular: Yes: Pulse Irregular Respiratory: Yes: Diminished, Other (CRACKLES LEFT BASE,) Gastrointestinal: Yes: Soft Genitourinary: Yes: Incontinence Musculoskeletal: Yes: Muscle Weakness Edema: No Integumentary: Yes: Venous Stasis Changes Neurological: Yes: Pre-Existing Deficit, Unsteady Gait Psychiatric: Yes: Other Labs: CBC, BMP 03/25/19 06:15 03/25/19 06:15 Problem List - Problems (1) Acute on chronic diastolic heart failure Code(s): I50.33 - ACUTE ON CHRONIC DIASTOLIC (CONGESTIVE) HEART FAILURE (2) Anemia Code(s): D64.9 - ANEMIA, UNSPECIFIED (3) Epigastric pain Code(s): R10.13 - EPIGASTRIC PAIN (4) Intractable abdominal pain Code(s): R10.9 - UNSPECIFIED ABDOMINAL PAIN (5) Pulmonary HTN Code(s): I27.20 - PULMONARY HYPERTENSION, UNSPECIFIED (6) Urinary tract infection Code(s): N39.0 - URINARY TRACT INFECTION, SITE NOT SPECIFIED Qualifiers: Urinary tract infection type: acute pyelonephritis Qualified Code(s): N10 - Acute pyelonephritis (7) Dementia Code(s): F03.90 - UNSPECIFIED DEMENTIA WITHOUT BEHAVIORAL DISTURBANCE (8) Depression Code(s): F32.9 - MAJOR DEPRESSIVE DISORDER, SINGLE EPISODE, UNSPECIFIED (9) Diabetes Code(s): E11.9 - TYPE 2 DIABETES MELLITUS WITHOUT COMPLICATIONS (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 OVERALL CHRONICALLY ILL WOMAN WITH MULTIPLE MEDICAL PROBLEMS WHO IS A FULL CODE. WILL CONTINUE CURRENT CARE AND MEDS NEED TO SPEAK TO FAMILY ABOUT ADVANCED DIRECTIVE.. STOPPING FLAGYL CONTROL BP OPTIMIZE NUTRITION BEDSIDE PT I WOULD PLACE HER IN A SNF, MONITOR HER LABS ONCE STRONGER BRINGER HER BACK TO THE HOSPITAL FOR GI WORKUP.
--- NOTE | 2019-03-25 11:04 | PN ---
Progress Note (short form) - Note Progress Note: Breathing feels OK. No CP or SOB. NAD on NC O2. No acute events overnight. Intake & Output 03/22/19 03/23/19 03/24/19 03/25/19 23:59 23:59 23:59 23:59 Intake Total 220 494 530 100 Output Total 5 2 Balance 215 492 530 100 Weight 129 lb 9 oz Last Vital Signs Temp Pulse Resp BP Pulse Ox 98 F 64 18 155/54 L 98 03/25/19 08:59 03/25/19 08:59 03/25/19 08:59 03/25/19 08:59 03/25/19 08:33 Active Medications Acetaminophen (Tylenol -) 650 mg PO Q4H PRN PRN Reason: PAIN LEVEL 6-10 Last Admin: 03/22/19 06:04 Dose: 650 mg Albuterol/Ipratropium (Duoneb -) 1 amp NEB Q6H PRN PRN Reason: SHORTNESS OF BREATH Last Admin: 03/18/19 07:46 Dose: 1 amp Bupropion HCl (Wellbutrin Xl -) 150 mg PO DAILY [facility] Last Admin: 03/25/19 09:13 Dose: 150 mg Clonidine HCl (Catapres Tts Patch -) 0.2 mg TD Q7D@1000 [facility] Last Admin: 03/23/19 11:47 Dose: 0.2 mg Dicyclomine HCl (Bentyl -) 10 mg PO Q6H PRN PRN Reason: MUSCLE SPASMS Last Admin: 03/20/19 06:46 Dose: 10 mg Docusate Sodium (Colace -) 100 mg PO HS [facility] Last Admin: 03/24/19 21:39 Dose: 100 mg Furosemide (Lasix Injection -) 40 mg IVPUSH DAILY [facility] Hydralazine HCl (Apresoline -) 100 mg PO TID [facility] Last Admin: 03/25/19 05:39 Dose: 100 mg Metronidazole (Flagyl 500mg Premixed Ivpb -) 500 mg in 100 mls @ 100 mls/hr IVPB Q8H-IV [facility] Last Admin: 03/25/19 09:17 Dose: 100 mls/hr Insulin Aspart (Novolog Vial Sliding Scale -) 1 vial SQ TIDAC [facility]; Protocol Last Admin: 03/25/19 06:45 Dose: Not Given Labetalol HCl (Normodyne -) 200 mg PO TID [facility] Last Admin: 03/25/19 05:39 Dose: 200 mg Levothyroxine Sodium (Synthroid -) 25 mcg PO DAILY@0700 [facility] Last Admin: 03/25/19 06:45 Dose: 25 mcg Mirtazapine (Remeron -) 30 mg PO HS [facility] Last Admin: 03/24/19 21:41 Dose: 30 mg Morphine Sulfate (Morphine Sulfate) 2 mg IVPUSH Q6H PRN PRN Reason: PAIN LEVEL 7 - 10 Last Admin: 03/25/19 08:43 Dose: 2 mg Nifedipine (Procardia Xl -) 60 mg PO BID [facility] Last Admin: 03/25/19 09:13 Dose: 60 mg Ondansetron HCl (Zofran Injection) 4 mg IVPUSH Q8H PRN PRN Reason: NAUSEA Last Admin: 03/25/19 08:43 Dose: 4 mg Pancrelipase (Creon Dr 36,000 Units Capsule) 1 cap PO TIDCM [facility] Last Admin: 03/25/19 09:14 Dose: 1 cap Pantoprazole Sodium (Protonix Iv) 40 mg IVPUSH DAILY [facility] Last Admin: 03/25/19 09:14 Dose: 40 mg Polyethylene Glycol (Miralax (For Daily Use) -) 17 gm PO BID [facility] Last Admin: 03/25/19 09:14 Dose: 17 gm Senna (Senna -) 2 tab PO HS PRN PRN Reason: CONSTIPATION Last Admin: 03/19/19 20:51 Dose: 2 tab Valsartan (Diovan -) 160 mg PO BID [facility] Last Admin: 03/25/19 09:13 Dose: 160 mg Gen: NAD at rest Heart: RRR Lung: decreased breath sounds at the bases Abd: soft, nontender Ext: no edema Laboratory Results - last 24 hr 03/24/19 03/24/19 03/25/19 11:28 17:11 05:37 WBC RBC Hgb Hct MCV MCH MCHC RDW Plt Count MPV Absolute Neuts (auto) Neutrophils % Lymphocytes % Monocytes % Eosinophils % Basophils % Nucleated RBC % Sodium Potassium Chloride Carbon Dioxide Anion Gap BUN Creatinine Est GFR (CKD-EPI)AfAm Est GFR (CKD-EPI)NonAf POC Glucometer 161 181 142 Random Glucose Calcium Magnesium Total Bilirubin AST ALT Alkaline Phosphatase Total Protein Albumin 03/25/19 03/25/19 06:15 06:15 WBC 10.3 H RBC 3.52 L Hgb 10.2 L Hct 31.0 L MCV 88.2 MCH 28.9 MCHC 32.8 RDW 14.7 Plt Count 502 H MPV 7.3 L Absolute Neuts (auto) 8.1 H Neutrophils % 78.4 Lymphocytes % 5.8 L D Monocytes % 10.0 Eosinophils % 5.2 H Basophils % 0.6 Nucleated RBC % 0 Sodium 141 Potassium 4.6 Chloride 110 H Carbon Dioxide 25 Anion Gap 7 L BUN 39.6 H Creatinine 1.7 H Est GFR (CKD-EPI)AfAm 33.13 Est GFR (CKD-EPI)NonAf 28.59 POC Glucometer Random Glucose 161 H Calcium 8.5 Magnesium 2.3 Total Bilirubin 0.3 AST 11 L ALT 9 L Alkaline Phosphatase 83 Total Protein 6.1 L Albumin 2.9 L Problem List - Problems (1) Acute on chronic diastolic heart failure Code(s): I50.33 - ACUTE ON CHRONIC DIASTOLIC (CONGESTIVE) HEART FAILURE (2) Pulmonary HTN Code(s): I27.20 - PULMONARY HYPERTENSION, UNSPECIFIED A/P Mild Acute on Chronic Diastolic Heart Failure Pulmonary HTN Acute on Chronic Renal Failure HTN DM Parkinsons Dementia Anemia - Lasix/ARB held by Renal - monitor urine output, creatinine - O2 to keep Spo2 >90% - protonix - DVT prophylaxis Dr Zee
[2019-03-25] MEDS ORDERED: ONDANSETRON *ODT* 4 MG TABLET SL PRN (11:11)
[2019-03-25] MEDS ORDERED: PT OWN MED DRAWER 7, Y5N ONE (13:17)
[2019-03-25] MEDS: predniSONE 20 MG TABLET (UD) PO SCH (13:19)
[2019-03-25] MEDS: DOCUSATE SODIUM 100 MG CAPSULE (FP) PO SCH (22:14)
[2019-03-25] MEDS: MIRTAZAPINE 15 MG TABLET (FP) PO SCH (22:14)
--- NOTE | 2019-03-26 05:38 | HOSP ---
Subjective - Review of Symptoms Events since last encounter: Hospitalist Encounter Was notified by the primary RN that the patient reports being SOB and feeling hot. Was asked to assess. Arrived to bedside. Patient is alert and oriented x2, reports being SOB and wheezing worse this AM. Patient denies CP or palpitations. 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 Admitted for UTI Plan: Duoneb now 3L Pulmonary: Yes: Dyspnea Physical Examination Vital Signs: Vital Signs Temperature 98.7 F 03/26/19 02:02 Pulse Rate 69 03/26/19 02:02 Respiratory Rate 20 03/26/19 02:02 Blood Pressure 180/68 H 03/26/19 04:42 O2 Sat by Pulse Oximetry (%) 98 03/25/19 21:00 Constitutional: Yes: Anxious, Mild Distress Eyes: Yes: WNL, Conjunctiva Clear, EOM Intact, PERRL HENT: Yes: WNL, Atraumatic, Normocephalic Neck: Yes: WNL, Supple, Trachea Midline Cardiovascular: Yes: Regular Rate and Rhythm, Murmur, S1, S2 Respiratory: Yes: On Nasal O2, Rhonchi, SOB, Wheezes Gastrointestinal: Yes: WNL, Normal Bowel Sounds, Soft Renal/: Yes: Incontinence Breast(s): Yes: WNL Musculoskeletal: Yes: Muscle Weakness Edema: No Peripheral Pulses WNL: Yes Neurological: Yes: Alert, Confusion, Cran Nerves II-XII Intact, Weakness Psychiatric: Yes: Alert Labs: CBC, BMP 03/25/19 06:15 03/25/19 06:15 Laboratory Results - last 24 hr 03/25/19 03/25/19 03/25/19 06:15 06:15 12:05 WBC 10.3 H RBC 3.52 L Hgb 10.2 L Hct 31.0 L MCV 88.2 MCH 28.9 MCHC 32.8 RDW 14.7 Plt Count 502 H MPV 7.3 L Absolute Neuts (auto) 8.1 H Neutrophils % 78.4 Lymphocytes % 5.8 L D Monocytes % 10.0 Eosinophils % 5.2 H Basophils % 0.6 Nucleated RBC % 0 Sodium 141 Potassium 4.6 Chloride 110 H Carbon Dioxide 25 Anion Gap 7 L BUN 39.6 H Creatinine 1.7 H Est GFR (CKD-EPI)AfAm 33.13 Est GFR (CKD-EPI)NonAf 28.59 POC Glucometer 220 Random Glucose 161 H Calcium 8.5 Magnesium 2.3 Total Bilirubin 0.3 AST 11 L ALT 9 L Alkaline Phosphatase 83 Total Protein 6.1 L Albumin 2.9 L 03/25/19 03/26/19 17:01 05:40 WBC RBC Hgb Hct MCV MCH MCHC RDW Plt Count MPV Absolute Neuts (auto) Neutrophils % Lymphocytes % Monocytes % Eosinophils % Basophils % Nucleated RBC % Sodium Potassium Chloride Carbon Dioxide Anion Gap BUN Creatinine Est GFR (CKD-EPI)AfAm Est GFR (CKD-EPI)NonAf POC Glucometer 168 176 Random Glucose Calcium Magnesium Total Bilirubin AST ALT Alkaline Phosphatase Total Protein Albumin Current Medications Generic Name Dose Route Start Last Admin Trade Name Freq PRN Reason Stop Dose Admin Acetaminophen 650 mg 03/15/19 22:32 03/22/19 06:04 Tylenol - PO 650 mg Q4H PRN Administration PAIN LEVEL 6-10 Albuterol/Ipratropium 1 amp 03/16/19 00:34 03/18/19 07:46 Duoneb - NEB 1 amp Q6H PRN Administration SHORTNESS OF BREATH Bupropion HCl 150 mg 03/16/19 10:00 03/25/19 09:13 Wellbutrin Xl - PO 150 mg DAILY [facility] Administration Clonidine HCl 0.2 mg 03/23/19 11:15 03/23/19 11:47 Catapres Tts Patch - TD 0.2 mg Q7D@1000 [facility] Administration Dicyclomine HCl 10 mg 03/15/19 22:37 03/20/19 06:46 Bentyl - PO 10 mg Q6H PRN Administration MUSCLE SPASMS Docusate Sodium 100 mg 03/16/19 22:00 03/25/19 22:14 Colace - PO 100 mg HS [facility] Administration Furosemide 40 mg 03/26/19 10:00 Lasix - PO DAILY [facility] Hydralazine HCl 100 mg 03/22/19 22:00 03/25/19 22:13 Apresoline - PO 100 mg TID [facility] Administration Insulin Aspart 1 vial 03/16/19 07:00 03/25/19 17:03 Novolog Vial Sliding Scale - SQ 2 units TIDAC [facility] Administration Protocol Labetalol HCl 200 mg 03/16/19 22:00 03/25/19 22:14 Normodyne - PO 200 mg TID [facility] Administration Levothyroxine Sodium 25 mcg 03/17/19 07:00 03/25/19 06:45 Synthroid - PO 25 mcg DAILY@0700 [facility] Administration Mirtazapine 30 mg 03/16/19 22:00 03/25/19 22:14 Remeron - PO 30 mg HS [facility] Administration Morphine Sulfate 2 mg 03/22/19 10:32 03/25/19 08:43 Morphine Sulfate IVPUSH 2 mg Q6H PRN Administration PAIN LEVEL 7 - 10 Nifedipine 60 mg 03/16/19 22:00 03/25/19 22:14 Procardia Xl - PO 60 mg BID [facility] Administration Ondansetron HCl 4 mg 03/25/19 11:11 03/25/19 23:53 Zofran Odt - SL 4 mg Q6H PRN Administration NAUSEA AND/OR VOMITING Pancrelipase 1 cap 03/16/19 12:00 03/25/19 17:00 Elaine Sweeney 36,000 Units Capsule PO 1 cap TIDCM [facility] Administration Polyethylene Glycol 17 gm 03/15/19 22:45 03/25/19 22:14 Miralax (For Daily Use) - PO Not Given BID [facility] Prednisone 20 mg 03/25/19 11:15 03/25/19 13:19 Deltasone - PO 20 mg DAILY [facility] Administration Senna 2 tab 03/16/19 22:00 03/19/19 20:51 Senna - PO 2 tab HS PRN Administration CONSTIPATION Valsartan 160 mg 03/24/19 10:00 03/25/19 09:13 Diovan - PO 160 mg BID [facility] Administration Intake & Output 03/23/19 03/24/19 03/25/19 03/26/19 23:59 23:59 23:59 23:59 Intake Total 494 530 300 Output Total 2 1 Balance 492 530 299 Hospitalist Encounter Outcome: Patient reports breathing improved on 3L, post nebulizer.
[2019-03-26] MEDS: hydrALAZINE HCL 50 MG TABLET (FP) PO SCH ×3 (05:41→22:01)
[2019-03-26] MEDS: LABETALOL HCL 200 MG TABLET (FP) PO SCH ×3 (05:42→22:02)
[2019-03-26] MEDS: INSULIN SLIDING SCALE (NOVOLOG) 1 VIAL SQ SCH ×3 (06:04→17:06)
[2019-03-26] MEDS: LEVOTHYROXINE NA 25 MCG TABLET (FP) PO SCH (06:05)
[2019-03-26 07:31] LABS: HEMATOCRIT 29.5 % (32.4-45.2); HEMOGLOBIN 9.9 GM/dL (10.7-15.3); MCH 29.3 pg (25.7-33.7); MCHC 33.5 g/dl (32.0-36.0); MEAN CELL VOLUME 87.5 fl (80-96); MEAN PLT VOLUME 6.9 fl (7.5-11.1); PLATELET COUNT 478 K/MM3 (134-434); RBC 3.37 M/mm3 (3.60-5.2); RDW 14.4 % (11.6-15.6); WHITE BLOOD COUNT 9.3 K/mm3 (4.0-10.0)
[2019-03-26 07:53] LABS: BLOOD UREA NITROGEN 47.4 mg/dL (7-18); CALCIUM 8.8 mg/dL (8.5-10.1); MAGNESIUM 2.3 mg/dL (1.8-2.4); POTASSIUM 4.9 mmol/L (3.5-5.1)
[2019-03-26] MEDS: VALSARTAN 160 MG TABLET (UD) PO SCH ×2 (10:00→22:02)
[2019-03-26] MEDS ORDERED: FUROSEMIDE 40 MG/4 ML INJECTABLE VIAL IVPUSH SCH (10:00)
[2019-03-26] MEDS: predniSONE 20 MG TABLET (UD) PO SCH (10:00)
[2019-03-26] MEDS: FUROSEMIDE 40 MG TABLET (FP) PO SCH (10:00)
[2019-03-26] MEDS: POLYETHYLENE GLYCOL 3350 119 GM BTL PO SCH ×2 (10:01→22:02)
[2019-03-26] MEDS: NIFEdipine E.R 60 MG TABLET (UD) PO SCH ×2 (10:01→22:02)
[2019-03-26] MEDS: LIPASE/PROTEASE/AMYLASE 36,000 UNIT CAPSULE PO SCH ×3 (10:01→17:07)
--- NOTE | 2019-03-26 10:09 | PN ---
Progress Note (short form) - Note Progress Note: Renal follow up for JASPER and volume overload Seen and examined at the bedside reports epigastric and RUQ discomfort no N/V or fever has mild shortness of breath when laying flat Vital Signs Temperature 98.7 F 03/26/19 06:04 Pulse Rate 72 03/26/19 06:04 Respiratory Rate 20 03/26/19 06:04 Blood Pressure 159/64 03/26/19 06:04 O2 Sat by Pulse Oximetry (%) 98 03/25/19 21:00 Intake & Output 03/23/19 03/24/19 03/25/19 03/26/19 23:59 23:59 23:59 23:59 Intake Total 494 530 300 0 Output Total 2 1 Balance 492 530 299 0 NAD awake and alert Dec BS at lung bases no LE edema CBC, BMP 03/26/19 06:36 03/26/19 06:36 Current Medications Acetaminophen (Tylenol -) 650 mg PO Q4H PRN PRN Reason: PAIN LEVEL 6-10 Last Admin: 03/22/19 06:04 Dose: 650 mg Albuterol/Ipratropium (Duoneb -) 1 amp NEB Q6H PRN PRN Reason: SHORTNESS OF BREATH Last Admin: 03/18/19 07:46 Dose: 1 amp Bupropion HCl (Wellbutrin Xl -) 150 mg PO DAILY [facility] Last Admin: 03/26/19 10:00 Dose: 150 mg Clonidine HCl (Catapres Tts Patch -) 0.2 mg TD Q7D@1000 [facility] Last Admin: 03/23/19 11:47 Dose: 0.2 mg Dicyclomine HCl (Bentyl -) 10 mg PO Q6H PRN PRN Reason: MUSCLE SPASMS Last Admin: 03/20/19 06:46 Dose: 10 mg Docusate Sodium (Colace -) 100 mg PO HS [facility] Last Admin: 03/25/19 22:14 Dose: 100 mg Furosemide (Lasix -) 40 mg PO DAILY [facility] Last Admin: 03/26/19 10:00 Dose: 40 mg Hydralazine HCl (Apresoline -) 100 mg PO TID [facility] Last Admin: 03/26/19 05:41 Dose: 100 mg Insulin Aspart (Novolog Vial Sliding Scale -) 1 vial SQ TIDAC [facility]; Protocol Last Admin: 03/26/19 06:04 Dose: 2 units Labetalol HCl (Normodyne -) 200 mg PO TID [facility] Last Admin: 03/26/19 05:42 Dose: 200 mg Levothyroxine Sodium (Synthroid -) 25 mcg PO DAILY@0700 [facility] Last Admin: 03/26/19 06:05 Dose: 25 mcg Mirtazapine (Remeron -) 30 mg PO HS [facility] Last Admin: 03/25/19 22:14 Dose: 30 mg Morphine Sulfate (Morphine Sulfate) 2 mg IVPUSH Q6H PRN PRN Reason: PAIN LEVEL 7 - 10 Last Admin: 03/25/19 08:43 Dose: 2 mg Nifedipine (Procardia Xl -) 60 mg PO BID [facility] Last Admin: 03/26/19 10:01 Dose: 60 mg Ondansetron HCl (Zofran Odt -) 4 mg SL Q6H PRN PRN Reason: NAUSEA AND/OR VOMITING Last Admin: 03/25/19 23:53 Dose: 4 mg Pancrelipase (Creon Dr 36,000 Units Capsule) 1 cap PO TIDCM [facility] Last Admin: 03/26/19 10:01 Dose: 1 cap Polyethylene Glycol (Miralax (For Daily Use) -) 17 gm PO BID [facility] Last Admin: 03/26/19 10:01 Dose: Not Given Prednisone (Deltasone -) 20 mg PO DAILY [facility] Last Admin: 03/26/19 10:00 Dose: 20 mg Senna (Senna -) 2 tab PO HS PRN PRN Reason: CONSTIPATION Last Admin: 03/19/19 20:51 Dose: 2 tab Valsartan (Diovan -) 160 mg PO BID [facility] Last Admin: 03/26/19 10:00 Dose: 160 mg Impression 1. JASPER 2. CKD 3. HLD 4.diverticulosis 5. HTN 6. DM 7. proteinuria 8. hypoalbuminemia 9. UTI 10. pleural effusion Impression Lasix reduced to 40mg PO daily. Can titrate back up if SOB continues. Continue Diovan BID for now as BP is high. If Cr trend continues to rise will need to consider alterative agent for the interim. Pain control w/o NSIADs Work up for Abd pain as per primary team Duoglas Moody DO
--- NOTE | 2019-03-26 10:51 | PN ---
Progress Note (short form) - Note Progress Note: Had increased SOB early this AM that was alleviated by NC O2 and BD TX. Breathing feels better now. No CP Intake & Output 03/23/19 03/24/19 03/25/19 03/26/19 23:59 23:59 23:59 23:59 Intake Total 494 530 300 0 Output Total 2 1 Balance 492 530 299 0 Last Vital Signs Temp Pulse Resp BP Pulse Ox 98.7 F 72 20 159/64 98 03/26/19 06:04 03/26/19 06:04 03/26/19 06:04 03/26/19 06:04 03/25/19 21:00 Active Medications Acetaminophen (Tylenol -) 650 mg PO Q4H PRN PRN Reason: PAIN LEVEL 6-10 Last Admin: 03/22/19 06:04 Dose: 650 mg Albuterol/Ipratropium (Duoneb -) 1 amp NEB Q6H PRN PRN Reason: SHORTNESS OF BREATH Last Admin: 03/18/19 07:46 Dose: 1 amp Bupropion HCl (Wellbutrin Xl -) 150 mg PO DAILY [facility] Last Admin: 03/26/19 10:00 Dose: 150 mg Clonidine HCl (Catapres Tts Patch -) 0.2 mg TD Q7D@1000 [facility] Last Admin: 03/23/19 11:47 Dose: 0.2 mg Dicyclomine HCl (Bentyl -) 10 mg PO Q6H PRN PRN Reason: MUSCLE SPASMS Last Admin: 03/20/19 06:46 Dose: 10 mg Docusate Sodium (Colace -) 100 mg PO HS [facility] Last Admin: 03/25/19 22:14 Dose: 100 mg Furosemide (Lasix -) 40 mg PO DAILY [facility] Last Admin: 03/26/19 10:00 Dose: 40 mg Hydralazine HCl (Apresoline -) 100 mg PO TID [facility] Last Admin: 03/26/19 05:41 Dose: 100 mg Insulin Aspart (Novolog Vial Sliding Scale -) 1 vial SQ TIDAC [facility]; Protocol Last Admin: 03/26/19 06:04 Dose: 2 units Labetalol HCl (Normodyne -) 200 mg PO TID [facility] Last Admin: 03/26/19 05:42 Dose: 200 mg Levothyroxine Sodium (Synthroid -) 25 mcg PO DAILY@0700 [facility] Last Admin: 03/26/19 06:05 Dose: 25 mcg Mirtazapine (Remeron -) 30 mg PO HS [facility] Last Admin: 03/25/19 22:14 Dose: 30 mg Morphine Sulfate (Morphine Sulfate) 2 mg IVPUSH Q6H PRN PRN Reason: PAIN LEVEL 7 - 10 Last Admin: 03/25/19 08:43 Dose: 2 mg Nifedipine (Procardia Xl -) 60 mg PO BID [facility] Last Admin: 03/26/19 10:01 Dose: 60 mg Ondansetron HCl (Zofran Odt -) 4 mg SL Q6H PRN PRN Reason: NAUSEA AND/OR VOMITING Last Admin: 03/25/19 23:53 Dose: 4 mg Pancrelipase (Creon Dr 36,000 Units Capsule) 1 cap PO TIDCM [facility] Last Admin: 03/26/19 10:01 Dose: 1 cap Polyethylene Glycol (Miralax (For Daily Use) -) 17 gm PO BID [facility] Last Admin: 03/26/19 10:01 Dose: Not Given Prednisone (Deltasone -) 20 mg PO DAILY [facility] Last Admin: 03/26/19 10:00 Dose: 20 mg Senna (Senna -) 2 tab PO HS PRN PRN Reason: CONSTIPATION Last Admin: 03/19/19 20:51 Dose: 2 tab Valsartan (Diovan -) 160 mg PO BID [facility] Last Admin: 03/26/19 10:00 Dose: 160 mg Gen: NAD at rest Heart: RRR Lung: Few scattered rhonchi, decreased breath sounds at the bases Abd: soft, nontender Ext: no edema Laboratory Results - last 24 hr 03/25/19 03/25/19 03/26/19 12:05 17:01 05:40 WBC RBC Hgb Hct MCV MCH MCHC RDW Plt Count MPV Sodium Potassium Chloride Carbon Dioxide Anion Gap BUN Creatinine Est GFR (CKD-EPI)AfAm Est GFR (CKD-EPI)NonAf POC Glucometer 220 168 176 Random Glucose Calcium Magnesium 03/26/19 03/26/19 06:36 06:36 WBC 9.3 RBC 3.37 L Hgb 9.9 L Hct 29.5 L MCV 87.5 MCH 29.3 MCHC 33.5 RDW 14.4 Plt Count 478 H MPV 6.9 L Sodium 139 Potassium 4.9 Chloride 108 H Carbon Dioxide 25 Anion Gap 7 L BUN 47.4 H Creatinine 2.0 H Est GFR (CKD-EPI)AfAm 27.22 Est GFR (CKD-EPI)NonAf 23.49 POC Glucometer Random Glucose 177 H Calcium 8.8 Magnesium 2.3 Problem List - Problems (1) Acute on chronic diastolic heart failure Code(s): I50.33 - ACUTE ON CHRONIC DIASTOLIC (CONGESTIVE) HEART FAILURE (2) Pulmonary HTN Code(s): I27.20 - PULMONARY HYPERTENSION, UNSPECIFIED A/P Mild Acute on Chronic Diastolic Heart Failure Pulmonary HTN Acute on Chronic Renal Failure HTN DM Parkinsons Dementia Anemia - Lasix/ARB per Renal - BD TX PRN - No indication for systemic steroids - monitor urine output, creatinine - O2 to keep Spo2 >90% - protonix - DVT prophylaxis Dr Zee
[2019-03-26] MEDS: MORPHINE SULFATE 2 MG/ML VIAL IVPUSH PRN (11:42)
--- NOTE | 2019-03-26 12:08 | PN ---
Progress Note (short form) - Note Progress Note: AWAKE IN BED POOR APPETITE FEVER OVERNIGHT CHECK CULTURES ID F/U PT OOB TO CHAIR NEEDS PLACEMENT SNF Problem List - Problems (1) Acute on chronic diastolic heart failure Code(s): I50.33 - ACUTE ON CHRONIC DIASTOLIC (CONGESTIVE) HEART FAILURE (2) Anemia Code(s): D64.9 - ANEMIA, UNSPECIFIED (3) Epigastric pain Code(s): R10.13 - EPIGASTRIC PAIN (4) Intractable abdominal pain Code(s): R10.9 - UNSPECIFIED ABDOMINAL PAIN (5) Pulmonary HTN Code(s): I27.20 - PULMONARY HYPERTENSION, UNSPECIFIED (6) Urinary tract infection Code(s): N39.0 - URINARY TRACT INFECTION, SITE NOT SPECIFIED Qualifiers: Urinary tract infection type: acute pyelonephritis Qualified Code(s): N10 - Acute pyelonephritis (7) Dementia Code(s): F03.90 - UNSPECIFIED DEMENTIA WITHOUT BEHAVIORAL DISTURBANCE (8) Depression Code(s): F32.9 - MAJOR DEPRESSIVE DISORDER, SINGLE EPISODE, UNSPECIFIED (9) Diabetes Code(s): E11.9 - TYPE 2 DIABETES MELLITUS WITHOUT COMPLICATIONS (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
[2019-03-26] MEDS ORDERED: INSULIN (NOVOLOG) ASPART 100 UNITS/ML 10ML VIAL ONE ×2 (16:58→18:15)
[2019-03-26] MEDS ORDERED: PT OWN MED DRAWER 7, Y5N ONE (18:15)
[2019-03-26] MEDS: DICYCLOMINE HCL 10 MG CAPSULE PO PRN (22:01)
[2019-03-26] MEDS: DOCUSATE SODIUM 100 MG CAPSULE (FP) PO SCH (22:01)
[2019-03-26] MEDS: MIRTAZAPINE 15 MG TABLET (FP) PO SCH (22:01)
[2019-03-27] MEDS: MORPHINE SULFATE 2 MG/ML VIAL IVPUSH PRN ×2 (06:04→23:43)
[2019-03-27] MEDS: hydrALAZINE HCL 50 MG TABLET (FP) PO SCH ×3 (06:05→21:17)
[2019-03-27] MEDS: LEVOTHYROXINE NA 25 MCG TABLET (FP) PO SCH (06:07)
[2019-03-27] MEDS: LABETALOL HCL 200 MG TABLET (FP) PO SCH ×3 (06:07→21:17)
[2019-03-27] MEDS: INSULIN SLIDING SCALE (NOVOLOG) 1 VIAL SQ SCH ×3 (06:28→16:20)
[2019-03-27 07:43] LABS: ALBUMIN 2.9 g/dl (3.4-5.0); BILIRUBIN,TOTAL 0.5 mg/dL (0.2-1); BLOOD UREA NITROGEN 55.1 mg/dL (7-18); CALCIUM 8.8 mg/dL (8.5-10.1); MAGNESIUM 2.5 mg/dL (1.8-2.4); PHOSPHOROUS 2.7 mg/dL (2.5-4.9); POTASSIUM 4.9 mmol/L (3.5-5.1); TOT PROT 6.4 g/dl (6.4-8.2)
[2019-03-27] MEDS: LIPASE/PROTEASE/AMYLASE 36,000 UNIT CAPSULE PO SCH ×3 (09:40→17:39)
[2019-03-27] MEDS: VALSARTAN 160 MG TABLET (UD) PO SCH (09:41)
[2019-03-27] MEDS: FUROSEMIDE 40 MG TABLET (FP) PO SCH (09:41)
[2019-03-27] MEDS: predniSONE 20 MG TABLET (UD) PO SCH (09:41)
[2019-03-27] MEDS: NIFEdipine E.R 60 MG TABLET (UD) PO SCH ×2 (09:42→21:18)
[2019-03-27] MEDS: POLYETHYLENE GLYCOL 3350 119 GM BTL PO SCH ×2 (09:44→21:17)
--- NOTE | 2019-03-27 10:20 | PN ---
Progress Note (short form) - Note Progress Note: Breathing feels OK. No CP or SOB. No acute events overnight. Intake & Output 03/24/19 03/25/19 03/26/19 03/27/19 23:59 23:59 23:59 23:59 Intake Total 530 300 0 0 Output Total 1 Balance 530 299 0 0 Last Vital Signs Temp Pulse Resp BP Pulse Ox 98.3 F 65 20 167/60 97 03/27/19 01:42 03/27/19 01:42 03/27/19 01:42 03/27/19 01:42 03/26/19 21:00 Active Medications Acetaminophen (Tylenol -) 650 mg PO Q4H PRN PRN Reason: PAIN LEVEL 6-10 Last Admin: 03/22/19 06:04 Dose: 650 mg Albuterol/Ipratropium (Duoneb -) 1 amp NEB Q6H PRN PRN Reason: SHORTNESS OF BREATH Last Admin: 03/18/19 07:46 Dose: 1 amp Bupropion HCl (Wellbutrin Xl -) 150 mg PO DAILY [facility] Last Admin: 03/27/19 09:41 Dose: 150 mg Clonidine HCl (Catapres Tts Patch -) 0.2 mg TD Q7D@1000 [facility] Last Admin: 03/23/19 11:47 Dose: 0.2 mg Dicyclomine HCl (Bentyl -) 10 mg PO Q6H PRN PRN Reason: MUSCLE SPASMS Last Admin: 03/26/19 22:01 Dose: 10 mg Docusate Sodium (Colace -) 100 mg PO HS [facility] Last Admin: 03/26/19 22:01 Dose: 100 mg Furosemide (Lasix -) 40 mg PO DAILY [facility] Last Admin: 03/27/19 09:41 Dose: 40 mg Hydralazine HCl (Apresoline -) 100 mg PO TID [facility] Last Admin: 03/27/19 06:05 Dose: 100 mg Insulin Aspart (Novolog Vial Sliding Scale -) 1 vial SQ TIDAC [facility]; Protocol Last Admin: 03/27/19 06:28 Dose: Not Given Labetalol HCl (Normodyne -) 200 mg PO TID [facility] Last Admin: 03/27/19 06:07 Dose: 200 mg Levothyroxine Sodium (Synthroid -) 25 mcg PO DAILY@0700 [facility] Last Admin: 03/27/19 06:07 Dose: 25 mcg Mirtazapine (Remeron -) 30 mg PO HS [facility] Last Admin: 03/26/19 22:01 Dose: 30 mg Morphine Sulfate (Morphine Sulfate) 2 mg IVPUSH Q6H PRN PRN Reason: PAIN LEVEL 7 - 10 Last Admin: 03/27/19 06:04 Dose: 2 mg Nifedipine (Procardia Xl -) 60 mg PO BID [facility] Last Admin: 03/27/19 09:42 Dose: 60 mg Ondansetron HCl (Zofran Odt -) 4 mg SL Q6H PRN PRN Reason: NAUSEA AND/OR VOMITING Last Admin: 03/25/19 23:53 Dose: 4 mg Pancrelipase (Creon Dr 36,000 Units Capsule) 1 cap PO TIDCM [facility] Last Admin: 03/27/19 09:40 Dose: 1 cap Polyethylene Glycol (Miralax (For Daily Use) -) 17 gm PO BID [facility] Last Admin: 03/27/19 09:44 Dose: 17 gm Prednisone (Deltasone -) 20 mg PO DAILY [facility] Last Admin: 03/27/19 09:41 Dose: 20 mg Senna (Senna -) 2 tab PO HS PRN PRN Reason: CONSTIPATION Last Admin: 03/19/19 20:51 Dose: 2 tab Valsartan (Diovan -) 160 mg PO BID [facility] Last Admin: 03/27/19 09:41 Dose: 160 mg Gen: NAD at rest Heart: RRR Lung: Few scattered rhonchi, decreased breath sounds at the bases Abd: soft, nontender Ext: no edema Laboratory Results - last 24 hr 03/26/19 03/26/19 03/27/19 11:57 16:41 06:50 Sodium 139 Potassium 4.9 Chloride 108 H Carbon Dioxide 25 Anion Gap 7 L BUN 55.1 H Creatinine 2.0 H Est GFR (CKD-EPI)AfAm 27.22 Est GFR (CKD-EPI)NonAf 23.49 POC Glucometer 168 289 Random Glucose 156 H Calcium 8.8 Phosphorus 2.7 Magnesium 2.5 H Total Bilirubin 0.5 AST 12 L ALT 11 L Alkaline Phosphatase 85 Total Protein 6.4 Albumin 2.9 L Problem List - Problems (1) Acute on chronic diastolic heart failure Code(s): I50.33 - ACUTE ON CHRONIC DIASTOLIC (CONGESTIVE) HEART FAILURE (2) Pulmonary HTN Code(s): I27.20 - PULMONARY HYPERTENSION, UNSPECIFIED A/P Mild Acute on Chronic Diastolic Heart Failure Pulmonary HTN Acute on Chronic Renal Failure HTN DM Parkinsons Dementia Anemia - Lasix/ARB per Renal - BD TX PRN - No indication for systemic steroids - monitor urine output, creatinine - O2 to keep Spo2 >90% - protonix - Prednisone - DVT prophylaxis Dr Zee
--- NOTE | 2019-03-27 10:59 | PN ---
Progress Note, Physician Chief Complaint: Anemia Uncontrolled HTN JASPER vs CKD History of Present Illness: NAD sitting in chair had abd pain early this AM Appetite improved BP remains labile Still has intermittent abd pain Encouraged to use Dicyclomine instead of morphine - Current Medication List Current Medications: Active Medications Acetaminophen (Tylenol -) 650 mg PO Q4H PRN PRN Reason: PAIN LEVEL 6-10 Last Admin: 03/22/19 06:04 Dose: 650 mg Albuterol/Ipratropium (Duoneb -) 1 amp NEB Q6H PRN PRN Reason: SHORTNESS OF BREATH Last Admin: 03/18/19 07:46 Dose: 1 amp Bupropion HCl (Wellbutrin Xl -) 150 mg PO DAILY [facility] Last Admin: 03/27/19 09:41 Dose: 150 mg Clonidine HCl (Catapres Tts Patch -) 0.2 mg TD Q7D@1000 [facility] Last Admin: 03/23/19 11:47 Dose: 0.2 mg Dicyclomine HCl (Bentyl -) 10 mg PO Q6H PRN PRN Reason: MUSCLE SPASMS Last Admin: 03/26/19 22:01 Dose: 10 mg Docusate Sodium (Colace -) 100 mg PO [facility] Last Admin: 03/26/19 22:01 Dose: 100 mg Furosemide (Lasix -) 40 mg PO DAILY [facility] Last Admin: 03/27/19 09:41 Dose: 40 mg Hydralazine HCl (Apresoline -) 100 mg PO TID [facility] Last Admin: 03/27/19 06:05 Dose: 100 mg Insulin Aspart (Novolog Vial Sliding Scale -) 1 vial SQ TIDAC [facility]; Protocol Last Admin: 03/27/19 06:28 Dose: Not Given Labetalol HCl (Normodyne -) 200 mg PO TID [facility] Last Admin: 03/27/19 06:07 Dose: 200 mg Levothyroxine Sodium (Synthroid -) 25 mcg PO DAILY@0700 [facility] Last Admin: 03/27/19 06:07 Dose: 25 mcg Mirtazapine (Remeron -) 30 mg PO [facility] Last Admin: 03/26/19 22:01 Dose: 30 mg Morphine Sulfate (Morphine Sulfate) 2 mg IVPUSH Q6H PRN PRN Reason: PAIN LEVEL 7 - 10 Last Admin: 03/27/19 06:04 Dose: 2 mg Nifedipine (Procardia Xl -) 60 mg PO BID [facility] Last Admin: 03/27/19 09:42 Dose: 60 mg Ondansetron HCl (Zofran Odt -) 4 mg SL Q6H PRN PRN Reason: NAUSEA AND/OR VOMITING Last Admin: 03/25/19 23:53 Dose: 4 mg Pancrelipase (Creon Dr 36,000 Units Capsule) 1 cap PO TIDCM [facility] Last Admin: 03/27/19 09:40 Dose: 1 cap Polyethylene Glycol (Miralax (For Daily Use) -) 17 gm PO BID [facility] Last Admin: 03/27/19 09:44 Dose: 17 gm Prednisone (Deltasone -) 20 mg PO DAILY [facility] Last Admin: 03/27/19 09:41 Dose: 20 mg Senna (Senna -) 2 tab PO HS PRN PRN Reason: CONSTIPATION Last Admin: 03/19/19 20:51 Dose: 2 tab Valsartan (Diovan -) 160 mg PO BID [facility] Last Admin: 03/27/19 09:41 Dose: 160 mg - Objective Vital Signs: Vital Signs Temperature 98.3 F 03/27/19 01:42 Pulse Rate 65 03/27/19 01:42 Respiratory Rate 20 03/27/19 01:42 Blood Pressure 167/60 03/27/19 01:42 O2 Sat by Pulse Oximetry (%) 97 03/26/19 21:00 Constitutional: Yes: Well Nourished, No Distress, Calm Cardiovascular: Yes: Regular Rate and Rhythm Respiratory: Yes: Regular Gastrointestinal: Yes: Normal Bowel Sounds, Soft Genitourinary: Yes: Incontinence Musculoskeletal: Yes: Muscle Weakness Extremities: Yes: WNL Edema: No Peripheral Pulses WNL: Yes Neurological: Yes: Alert, Oriented Psychiatric: Yes: Alert, Oriented Labs: CBC, BMP 03/26/19 06:36 03/27/19 06:50 Problem List - Problems (1) Cystitis Assessment/Plan: -IV ceftriaxone- completed 8 days -UC contaminated Problems reviewed: Yes Code(s): N30.90 - CYSTITIS, UNSPECIFIED WITHOUT HEMATURIA (2) Acute on chronic diastolic heart failure Assessment/Plan: -Cardiology to re-evaluated -CXR pleural effusion- which seems to be chronic -Furosemide -Low sodium diabetic diet Problems reviewed: Yes Code(s): I50.33 - ACUTE ON CHRONIC DIASTOLIC (CONGESTIVE) HEART FAILURE (3) Anemia Assessment/Plan: -Stool OB still pending -EGD cancelled -GI on board -H/H stable Problems reviewed: Yes Code(s): D64.9 - ANEMIA, UNSPECIFIED (4) Intractable abdominal pain Assessment/Plan: -Abd/pel CT unremarkable -Chronic abd pain -Change dicyclomine to standing dose every 6 hours Code(s): R10.9 - UNSPECIFIED ABDOMINAL PAIN (5) HTN (hypertension) Assessment/Plan: -clonidine was increased to 0.2 mg Qweekly -Give valsartan 160 mg po once in addition to daily dose -Change Valsartan to 320 mg po daily -Continue Hydralazine 100 mg po TID -Continue Procardia 60 mg po BID -Continue Furosemide 40 mg po daily -Continue Labetalol 200 mg po TID -monitor trend Problems reviewed: Yes Code(s): I10 - ESSENTIAL (PRIMARY) HYPERTENSION Assessment/Plan see problem list PT
--- NOTE | 2019-03-27 13:19 | PN ---
Progress Note, Physician History of Present Illness: Pt seen and examined at bedside. She is awake and alert. She denies shortness of breath. - Current Medication List Current Medications: Active Medications Acetaminophen (Tylenol -) 650 mg PO Q4H PRN PRN Reason: PAIN LEVEL 6-10 Last Admin: 03/22/19 06:04 Dose: 650 mg Albuterol/Ipratropium (Duoneb -) 1 amp NEB Q6H PRN PRN Reason: SHORTNESS OF BREATH Last Admin: 03/18/19 07:46 Dose: 1 amp Bupropion HCl (Wellbutrin Xl -) 150 mg PO DAILY [facility] Last Admin: 03/27/19 09:41 Dose: 150 mg Clonidine HCl (Catapres Tts Patch -) 0.2 mg TD Q7D@1000 [facility] Last Admin: 03/23/19 11:47 Dose: 0.2 mg Dicyclomine HCl (Bentyl -) 10 mg PO QID [facility] Docusate Sodium (Colace -) 100 mg PO [facility] Last Admin: 03/26/19 22:01 Dose: 100 mg Furosemide (Lasix -) 40 mg PO DAILY [facility] Last Admin: 03/27/19 09:41 Dose: 40 mg Hydralazine HCl (Apresoline -) 100 mg PO TID [facility] Last Admin: 03/27/19 06:05 Dose: 100 mg Insulin Aspart ([facility] Sliding [facility] -) [facility] Last Admin: 03/27/19 11:06 Dose: 2 units Labetalol HCl (Normodyne -) 200 mg PO TID [facility] Last Admin: 03/27/19 06:07 Dose: 200 mg Levothyroxine Sodium (Synthroid -) 25 mcg PO DAILY@0700 [facility] Last Admin: 03/27/19 06:07 Dose: 25 mcg Mirtazapine (Remeron -) 30 mg PO [facility] Last Admin: 03/26/19 22:01 Dose: 30 mg Morphine Sulfate (Morphine Sulfate) 2 mg IVPUSH Q6H PRN PRN Reason: PAIN LEVEL 7 - 10 Last Admin: 03/27/19 06:04 Dose: 2 mg Nifedipine (Procardia Xl -) 60 mg PO BID [facility] Last Admin: 03/27/19 09:42 Dose: 60 mg Ondansetron HCl (Zofran Odt -) 4 mg SL Q6H PRN PRN Reason: NAUSEA AND/OR VOMITING Last Admin: 03/25/19 23:53 Dose: 4 mg Pancrelipase (Creon Dr 36,000 Units Capsule) 1 cap PO TIDCM [facility] Last Admin: 03/27/19 11:50 Dose: 1 cap Polyethylene Glycol (Miralax (For Daily Use) -) 17 gm PO BID [facility] Last Admin: 03/27/19 09:44 Dose: 17 gm Senna (Senna -) 2 tab PO HS PRN PRN Reason: CONSTIPATION Last Admin: 03/19/19 20:51 Dose: 2 tab Valsartan (Diovan -) 160 mg PO ONCE ONE Stop: 03/27/19 12:34 Valsartan (Diovan -) 320 mg PO DAILY [facility] - Objective Vital Signs: Vital Signs Temperature 98.2 F 03/27/19 10:00 Pulse Rate 68 03/27/19 10:00 Respiratory Rate 03/27/19 10:00 Blood Pressure 162/87 03/27/19 10:00 O2 Sat by Pulse Oximetry (%) 97 03/27/19 09:00 Constitutional: Yes: Calm Eyes: Yes: Conjunctiva Clear HENT: Yes: Atraumatic Neck: Yes: Supple Cardiovascular: Yes: S1, S2 Respiratory: Yes: CTA Bilaterally Gastrointestinal: Yes: Soft Genitourinary: Yes: WNL Musculoskeletal: Yes: WNL Edema: No Neurological: Yes: Oriented Psychiatric: Yes: Oriented Labs: CBC, BMP 03/26/19 06:36 03/27/19 06:50 Assessment/Plan Current Medications Generic Name Dose Route Start Last Admin Trade Name Freq PRN Reason Stop Dose Admin Acetaminophen 650 mg 03/15/19 22:32 03/22/19 06:04 Tylenol - PO 650 mg Q4H PRN Administration PAIN LEVEL 6-10 Albuterol/Ipratropium 1 amp 03/16/19 00:34 03/18/19 07:46 Duoneb - NEB 1 amp Q6H PRN Administration SHORTNESS OF BREATH Bupropion HCl 150 mg 03/16/19 10:00 03/27/19 09:41 Wellbutrin Xl - PO 150 mg DAILY [facility] Administration Clonidine HCl 0.2 mg 03/23/19 11:15 03/23/19 11:47 Catapres Tts Patch - TD 0.2 mg Q7D@1000 [facility] Administration Dicyclomine HCl 10 mg 03/27/19 14:00 Bentyl - PO QID [facility] Docusate Sodium 100 mg 03/16/19 22:00 03/26/19 22:01 Colace - PO 100 mg HS [facility] Administration Furosemide 40 mg 03/26/19 10:00 03/27/19 09:41 Lasix - PO 40 mg DAILY [facility] Administration Hydralazine HCl 100 mg 03/22/19 22:00 03/27/19 06:05 Apresoline - PO 100 mg TID [facility] Administration Insulin Aspart 1 vial 03/16/19 07:00 03/27/19 11:06 Novolog Vial Sliding Scale - SQ 2 units TIDAC [facility] Administration Protocol Labetalol HCl 200 mg 03/16/19 22:00 03/27/19 06:07 Normodyne - PO 200 mg TID [facility] Administration Levothyroxine Sodium 25 mcg 03/17/19 07:00 03/27/19 06:07 Synthroid - PO 25 mcg DAILY@0700 [facility] Administration Mirtazapine 30 mg 03/16/19 22:00 03/26/19 22:01 Remeron - PO 30 mg HS [facility] Administration Morphine Sulfate 2 mg 03/22/19 10:32 03/27/19 06:04 Morphine Sulfate IVPUSH 2 mg Q6H PRN Administration PAIN LEVEL 7 - 10 Nifedipine 60 mg 03/16/19 22:00 03/27/19 09:42 Procardia Xl - PO 60 mg BID [facility] Administration Ondansetron HCl 4 mg 03/25/19 11:11 03/25/19 23:53 Zofran Odt - SL 4 mg Q6H PRN Administration NAUSEA AND/OR VOMITING Pancrelipase 1 cap 03/16/19 12:00 03/27/19 11:[address] 36,000 Units Capsule PO 1 cap TIDCM [facility] Administration Polyethylene Glycol 17 gm 03/15/19 22:45 03/27/19 09:44 Miralax (For Daily Use) - PO 17 gm BID [facility] Administration Senna 2 tab 03/16/19 22:00 03/19/19 20:51 Senna - PO 2 tab HS PRN Administration CONSTIPATION Valsartan 160 mg 03/27/19 12:33 Diovan - PO 03/27/19 12:34 ONCE ONE Valsartan 320 mg 03/28/19 10:00 Diovan - PO DAILY [facility] Impression 1. JASPER 2. CKD 3. HLD 4.diverticulosis 5. HTN 6. DM 7. proteinuria 8. hypoalbuminemia 9. UTI 10. pleural effusion Impression - monitor renal function - losartan dose increase - monitor bp - cont lasix - monitor volume status, improved
[2019-03-27] MEDS: DICYCLOMINE HCL 10 MG CAPSULE PO SCH ×3 (13:22→21:20)
[2019-03-27] MEDS ORDERED: VALSARTAN 160 MG TABLET (UD) PO ONE (13:30)
--- NOTE | 2019-03-27 16:25 | PN ---
Progress Note (short form) - Note Progress Note: Patient seen and examined Feels ok Last Vital Signs Temp Pulse Resp BP Pulse Ox 98.1 F 67 20 147/72 97 03/27/19 14:41 03/27/19 14:41 03/27/19 14:41 03/27/19 14:41 03/27/19 09:00 Cor: RSR, No murmurs, No gallops Lungs: Clear to P&A Abd: Soft, Normal bowel sounds, No organomegaly Ext:No significant edema Labs/Meds reviewed A/P 79y/o patient Mild Acute on Chronic Diastolic Heart Failure Pulmonary HTN Acute on Chronic Renal Failure HTN DM hypthyroid Parkinsons Dementia s/p cholecystectomy Anemia anemia of chronic disease--- mixed picture -- chronic disease + iron deficiency ( ? decreased iron saturation--11%, ferritin 387) B12/folate/TSH nl protein studies -- SIFE negative, light chain ratio 2.11 due to CKD GI w/u on hold till medically optimized
[2019-03-27] MEDS: MIRTAZAPINE 15 MG TABLET (FP) PO SCH (21:16)
[2019-03-27] MEDS: DOCUSATE SODIUM 100 MG CAPSULE (FP) PO SCH (21:17)
[2019-03-27] MEDS ORDERED: PT OWN MED DRAWER 7, Y5N ONE (21:19)
[2019-03-28] MEDS ORDERED: ACETAMINOPHEN 1000 MG/100 ML VIAL (NON FORMULARY) IVPB ONE (02:26)
[2019-03-28] MEDS: hydrALAZINE HCL 50 MG TABLET (FP) PO SCH ×2 (06:02→14:16)
[2019-03-28] MEDS: LABETALOL HCL 200 MG TABLET (FP) PO SCH ×2 (06:02→14:17)
[2019-03-28] MEDS: LEVOTHYROXINE NA 25 MCG TABLET (FP) PO SCH (06:02)
[2019-03-28] MEDS: INSULIN SLIDING SCALE (NOVOLOG) 1 VIAL SQ SCH ×3 (06:07→16:27)
[2019-03-28] MEDS: LIPASE/PROTEASE/AMYLASE 36,000 UNIT CAPSULE PO SCH ×3 (08:00→16:30)
--- NOTE | 2019-03-28 08:09 | DS ---
Physical Examination Vital Signs: Vital Signs Temperature 98.6 F 03/28/19 06:00 Pulse Rate 55 L 03/28/19 06:00 Respiratory Rate 18 03/28/19 06:00 Blood Pressure 146/53 L 03/28/19 06:00 O2 Sat by Pulse Oximetry (%) 100 03/27/19 21:00 Findings/Remarks: AWAKE MORE ALERT DENIES PAIN TOLERATING DIET Constitutional: Yes: No Distress Cardiovascular: Yes: Regular Rate and Rhythm Respiratory: Yes: WNL Gastrointestinal: Yes: Soft Musculoskeletal: Yes: Muscle Weakness Edema: No Psychiatric: Yes: Other Labs: CBC, BMP 03/26/19 06:36 03/27/19 06:50 Discharge Summary Problems reviewed: Yes Reason For Visit: VOMITTING / PAIN Current Active Problems Abnormal CXR (Acute) Acute on chronic diastolic heart failure (Acute) Anemia (Acute) Cystitis (Acute) Emphysematous cystitis (Acute) Epigastric pain (Acute) Intractable abdominal pain (Acute) Pulmonary HTN (Acute) Urinary tract infection (Acute) Procedures: Principal: CT SCANS/XRAYS/LABS/CX Hospital Course: ADMITTED FOR ABDOMINAL PAIN WORK UP NEGATIVE, LIKELY ALL IRRITABLE BOWEL SYNDROME. cAN F/U OUTPATIENT. NEEDS LABS IN 3-4 DAYS FOR CHRONIC RENAL INSUFF. AND ANEMIA F/U/ Plan of Treatment: SEE DR PORRAS IN 3 DAYS FOR LABS IBS IRRITABLE BOWEL DYSNDROME DIET FODMAP DIET IS BEST TO FOLLOW TO DECREASE PAIN AND BLOATING Condition: Stable - Instructions Referrals: Ro Espana MD [Primary Care Provider] - Disposition: VNS/HOME HEALTH CARE - Home Medications Comprehensive Discharge Medication List: Ambulatory Orders Aspirin [Adult Aspirin Regimen] 81 mg PO DAILY 09/23/18 Atorvastatin Ca [Lipitor] 20 mg PO HS 09/23/18 Docusate Sodium [Stool Softener] 100 mg PO HS 09/23/18 Lipase/Protease/Amylase [lEaine Sweeney 36,000 Units Capsule] 1 each PO TID 09/23/18 Mirtazapine 30 mg PO HS 09/23/18 traMADol HCL [Ultram -] 50 mg PO TID PRN 09/23/18 Levothyroxine [Synthroid -] 25 mcg PO DAILY@0700 #30 tablet 09/30/18 Potassium Chloride [K-Dur -] 20 meq PO DAILY #30 tablet.er 09/30/18 Sennosides [Senna -] 2 tab PO HS PRN tablet 09/30/18 Donepezil HCl [Aricept] 10 mg PO DAILY #30 tablet 12/26/18 Famotidine [Pepcid] 40 mg PO BID #30 tablet 12/26/18 Insulin (Levemir) [Levemir Vial] 8 units SQ HS #100 units 12/26/18 Polyethylene Glycol 3350 [Miralax 119 gm Btl -] 17 gm PO BID #1 bottle 12/26/18 Valsartan [Diovan] 160 mg PO DAILY #30 tablet 12/26/18 Hydralazine HCl 50 mg PO TID 03/16/19 Labetalol HCl 200 mg PO TID 03/16/19 Linzess 72 mcg PO HS 03/16/19 Nifedipine ER 60 mg PO BID 03/16/19 Acetaminophen [Tylenol .Regular Strength -] 650 mg PO Q4H PRN #90 tablet Clonidine Patch [Catapres Tts Patch -] 0.2 mg TD Q7D@1000 #4 patch.tdwk Dicyclomine HCl [Bentyl -] 10 mg PO Q6H PRN #120 capsule 03/28/19 Furosemide [Lasix -] 40 mg PO DAILY #30 tablet 03/28/19 Ondansetron [Zofran *Odt*] 4 mg SL Q6H PRN #30 tab.rapdis 03/28/19 predniSONE [Deltasone -] See Taper PO DAILY #30 tablet 03/28/19
--- NOTE | 2019-03-28 08:38 | PN.GI ---
GI Progress Note Subjective: Patient denies dysphagia, nausea, vomiting, abdominal pain, diarrhea, constipation, rectal bleeding. Initial consult was placed for anemia and was planned for EGD while in-patient. However, patient has multiple comorbidities including bilateral pleural effusion and labile hypertension and not is medically optimized for EGD. Family made aware and patient should follow up as outpatient for further GI workup. - Objective Vital Signs: Vital Signs Temperature 98.6 F 03/28/19 06:00 Pulse Rate 55 L 03/28/19 06:00 Respiratory Rate 18 03/28/19 06:00 Blood Pressure 146/53 L 03/28/19 06:00 O2 Sat by Pulse Oximetry (%) 100 03/27/19 21:00 Constitutional: No Distress, Calm Eyes: Yes: Conjunctiva Clear HENT: Yes: Atraumatic Cardiovascular: Yes: Regular Rate and Rhythm Respiratory: Yes: Regular, Diminished Gastrointestinal Inspection: Yes: WNL. No: Ascites, Distention, Hernia, Scars, Other ...Auscultate: Yes: Normoactive Bowel Sounds. No: Hyperactive Bowel Sounds, Hypoactive Bowel Sounds, No Bowel Sounds, Other ...Palpate: Yes: Soft. No: Firm/Rigid, Guarding, Hepatomegaly, Mass, Pulsatile Mass, Splenomegaly, Tenderness, Tenderness, Epigastium, Tenderness, Rebound, Other ...Percussion: Yes: Tympanitic. No: Dullness, Fluid Wave, Other Neurological: Yes: Alert Psychiatric: Yes: Alert Labs: CBC, BMP 03/26/19 06:36 03/27/19 06:50 Problem List - Problems (1) Epigastric pain Assessment/Plan: associated with anemia, r/o peptic ulcer disease R> will need EGD once medically cleared Pantoprazole 40mg bid Reglan 5mg 30 min ac Code(s): R10.13 - EPIGASTRIC PAIN (2) Anemia Assessment/Plan: >Hg 9.9 > transfuse with PRBC until Hg >8.0 >Pantoprazole >consider holding Aspirin >patient has multiple comorbidities including bilateral pleural effusion and labile hypertension and not is medically optimized for EGD. >Family made aware and patient should follow up as outpatient for further GI workup Code(s): D64.9 - ANEMIA, UNSPECIFIED
[2019-03-28] MEDS: DICYCLOMINE HCL 10 MG CAPSULE PO SCH ×3 (09:44→17:53)
[2019-03-28] MEDS: POLYETHYLENE GLYCOL 3350 119 GM BTL PO SCH (09:45)
[2019-03-28] MEDS: FUROSEMIDE 40 MG TABLET (FP) PO SCH (09:45)
[2019-03-28] MEDS: NIFEdipine E.R 60 MG TABLET (UD) PO SCH (09:45)
[2019-03-28] MEDS ORDERED: VALSARTAN 160 MG TABLET (UD) PO SCH (10:00)
--- NOTE | 2019-03-28 10:25 | PN ---
Progress Note (short form) - Note Progress Note: OOB to chair. Breathing feels OK. No CP or SOB. No acute events overnight. Intake & Output 03/25/19 03/26/19 03/27/19 03/28/19 23:59 23:59 23:59 23:59 Intake Total 300 0 780 200 Output Total 1 Balance 299 0 780 200 Last Vital Signs Temp Pulse Resp BP Pulse Ox 98.7 F 60 20 143/64 100 03/28/19 09:54 03/28/19 09:54 03/28/19 09:54 03/28/19 09:54 03/27/19 21:00 Active Medications Acetaminophen (Tylenol -) 650 mg PO Q4H PRN PRN Reason: PAIN LEVEL 6-10 Last Admin: 03/22/19 06:04 Dose: 650 mg Albuterol/Ipratropium (Duoneb -) 1 amp NEB Q6H PRN PRN Reason: SHORTNESS OF BREATH Last Admin: 03/18/19 07:46 Dose: 1 amp Bupropion HCl (Wellbutrin Xl -) 150 mg PO DAILY [facility] Last Admin: 03/28/19 09:44 Dose: 150 mg Clonidine HCl (Catapres Tts Patch -) 0.2 mg TD Q7D@1000 [facility] Last Admin: 03/23/19 11:47 Dose: 0.2 mg Dicyclomine HCl (Bentyl -) 10 mg PO QID [facility] Last Admin: 03/28/19 09:44 Dose: 10 mg Docusate Sodium (Colace -) 100 mg PO HS [facility] Last Admin: 03/27/19 21:17 Dose: 100 mg Furosemide (Lasix -) 40 mg PO DAILY [facility] Last Admin: 03/28/19 09:45 Dose: 40 mg Hydralazine HCl (Apresoline -) 100 mg PO TID [facility] Last Admin: 03/28/19 06:02 Dose: 100 mg Insulin Aspart (Novolog Vial Sliding Scale -) 1 vial SQ TIDAC [facility]; Protocol Last Admin: 03/28/19 06:07 Dose: 2 units Labetalol HCl (Normodyne -) 200 mg PO TID [facility] Last Admin: 03/28/19 06:02 Dose: 200 mg Levothyroxine Sodium (Synthroid -) 25 mcg PO DAILY@0700 [facility] Last Admin: 03/28/19 06:02 Dose: 25 mcg Mirtazapine (Remeron -) 30 mg PO HS [facility] Last Admin: 03/27/19 21:16 Dose: 30 mg Morphine Sulfate (Morphine Sulfate) 2 mg IVPUSH Q6H PRN PRN Reason: PAIN LEVEL 7 - 10 Last Admin: 03/27/19 23:43 Dose: 2 mg Nifedipine (Procardia Xl -) 60 mg PO BID [facility] Last Admin: 03/28/19 09:45 Dose: 60 mg Ondansetron HCl (Zofran Odt -) 4 mg SL Q6H PRN PRN Reason: NAUSEA AND/OR VOMITING Last Admin: 03/25/19 23:53 Dose: 4 mg Pancrelipase (Elaine Sweeney 36,000 Units Capsule) 1 cap PO TIDCM [facility] Last Admin: 03/28/19 08:00 Dose: 1 cap Polyethylene Glycol (Miralax (For Daily Use) -) 17 gm PO BID [facility] Last Admin: 03/28/19 09:45 Dose: 17 gm Senna (Senna -) 2 tab PO HS PRN PRN Reason: CONSTIPATION Last Admin: 03/19/19 20:51 Dose: 2 tab Valsartan (Diovan -) 320 mg PO DAILY [facility] Last Admin: 03/28/19 09:44 Dose: 320 mg Gen: NAD at rest Heart: RRR Lung: Few scattered rhonchi, decreased breath sounds at the bases Abd: soft, nontender Ext: no edema Laboratory Results - last 24 hr 03/27/19 03/27/19 03/28/19 11:04 16:19 06:06 POC Glucometer 186 389 162 Problem List - Problems (1) Acute on chronic diastolic heart failure Code(s): I50.33 - ACUTE ON CHRONIC DIASTOLIC (CONGESTIVE) HEART FAILURE (2) Pulmonary HTN Code(s): I27.20 - PULMONARY HYPERTENSION, UNSPECIFIED A/P Mild Acute on Chronic Diastolic Heart Failure Pulmonary HTN Acute on Chronic Renal Failure HTN DM Parkinsons Dementia Anemia - Lasix/ARB per Renal - BD TX PRN - No indication for systemic steroids - monitor urine output, creatinine - O2 to keep Spo2 >90% - protonix - Prednisone - DVT prophylaxis - DC planning Dr Zee
--- NOTE | 2019-03-28 15:11 | PN ---
Progress Note, Physician History of Present Illness: Pt seen and examined at bedside. She is awake and alert. She denies shortness of breath. - Current Medication List Current Medications: Active Medications Acetaminophen (Tylenol -) 650 mg PO Q4H PRN PRN Reason: PAIN LEVEL 6-10 Last Admin: 03/22/19 06:04 Dose: 650 mg Albuterol/Ipratropium (Duoneb -) 1 amp NEB Q6H PRN PRN Reason: SHORTNESS OF BREATH Last Admin: 03/18/19 07:46 Dose: 1 amp Bupropion HCl (Wellbutrin Xl -) 150 mg PO DAILY [facility] Last Admin: 03/28/19 09:44 Dose: 150 mg Clonidine HCl (Catapres Tts Patch -) 0.2 mg TD Q7D@1000 [facility] Last Admin: 03/23/19 11:47 Dose: 0.2 mg Dicyclomine HCl (Bentyl -) 10 mg PO QID [facility] Last Admin: 03/28/19 14:17 Dose: 10 mg Docusate Sodium (Colace -) 100 mg PO [facility] Last Admin: 03/27/19 21:17 Dose: 100 mg Furosemide (Lasix -) 40 mg PO DAILY [facility] Last Admin: 03/28/19 09:45 Dose: 40 mg Hydralazine HCl (Apresoline -) 100 mg PO TID [facility] Last Admin: 03/28/19 14:16 Dose: 100 mg Insulin Aspart (Novolog Vial Sliding Scale -) 1 vial SQ TIDAC [facility]; Protocol Last Admin: 03/28/19 11:48 Dose: 6 units Labetalol HCl (Normodyne -) 200 mg PO TID [facility] Last Admin: 03/28/19 14:17 Dose: 200 mg Levothyroxine Sodium (Synthroid -) 25 mcg PO DAILY@0700 [facility] Last Admin: 03/28/19 06:02 Dose: 25 mcg Mirtazapine (Remeron -) 30 mg PO [facility] Last Admin: 03/27/19 21:16 Dose: 30 mg Morphine Sulfate (Morphine Sulfate) 2 mg IVPUSH Q6H PRN PRN Reason: PAIN LEVEL 7 - 10 Last Admin: 03/27/19 23:43 Dose: 2 mg Nifedipine (Procardia Xl -) 60 mg PO BID [facility] Last Admin: 03/28/19 09:45 Dose: 60 mg Ondansetron HCl (Zofran Odt -) 4 mg SL Q6H PRN PRN Reason: NAUSEA AND/OR VOMITING Last Admin: 03/25/19 23:53 Dose: 4 mg Pancrelipase (Creon Dr 36,000 Units Capsule) 1 cap PO TIDCM [facility] Last Admin: 03/28/19 11:49 Dose: 1 cap Polyethylene Glycol (Miralax (For Daily Use) -) 17 gm PO BID [facility] Last Admin: 03/28/19 09:45 Dose: 17 gm Senna (Senna -) 2 tab PO HS PRN PRN Reason: CONSTIPATION Last Admin: 03/19/19 20:51 Dose: 2 tab Valsartan (Diovan -) 320 mg PO DAILY [facility] Last Admin: 03/28/19 09:44 Dose: 320 mg - Objective Vital Signs: Vital Signs Temperature 98.7 F 03/28/19 14:37 Pulse Rate 56 L 03/28/19 14:37 Respiratory Rate 20 03/28/19 14:37 Blood Pressure 136/54 L 03/28/19 14:37 O2 Sat by Pulse Oximetry (%) 99 03/28/19 09:00 Constitutional: Yes: Calm Eyes: Yes: Conjunctiva Clear HENT: Yes: Atraumatic Neck: Yes: Supple Cardiovascular: Yes: S1, S2 Respiratory: Yes: CTA Bilaterally Gastrointestinal: Yes: Normal Bowel Sounds, Soft Genitourinary: Yes: WNL Musculoskeletal: Yes: WNL Edema: No Neurological: Yes: Oriented Psychiatric: Yes: Oriented Labs: CBC, BMP 03/26/19 06:36 03/27/19 06:50 Assessment/Plan Current Medications Generic Name Dose Route Start Last Admin Trade Name Freq PRN Reason Stop Dose Admin Acetaminophen 650 mg 03/15/19 22:32 03/22/19 06:04 Tylenol - PO 650 mg Q4H PRN Administration PAIN LEVEL 6-10 Albuterol/Ipratropium 1 amp 03/16/19 00:34 03/18/19 07:46 Duoneb - NEB 1 amp Q6H PRN Administration SHORTNESS OF BREATH Bupropion HCl 150 mg 03/16/19 10:00 03/28/19 09:44 Wellbutrin Xl - PO 150 mg DAILY [facility] Administration Clonidine HCl 0.2 mg 03/23/19 11:15 03/23/19 11:47 Catapres Tts Patch - TD 0.2 mg Q7D@1000 [facility] Administration Dicyclomine HCl 10 mg 03/27/19 14:00 03/28/19 14:17 Bentyl - PO 10 mg QID [facility] Administration Docusate Sodium 100 mg 03/16/19 22:00 03/27/19 21:17 Colace - PO 100 mg HS [facility] Administration Furosemide 40 mg 03/26/19 10:00 03/28/19 09:45 Lasix - PO 40 mg DAILY [facility] Administration Hydralazine HCl 100 mg 03/22/19 22:00 03/28/19 14:16 Apresoline - PO 100 mg TID [facility] Administration Insulin Aspart 1 vial 03/16/19 07:00 03/28/19 11:48 Novolog Vial Sliding Scale - SQ 6 units TIDAC [facility] Administration Protocol Labetalol HCl 200 mg 03/16/19 22:00 03/28/19 14:17 Normodyne - PO 200 mg TID [facility] Administration Levothyroxine Sodium 25 mcg 03/17/19 07:00 03/28/19 06:02 Synthroid - PO 25 mcg DAILY@0700 [facility] Administration Mirtazapine 30 mg 03/16/19 22:00 03/27/19 21:16 Remeron - PO 30 mg HS [facility] Administration Morphine Sulfate 2 mg 03/22/19 10:32 03/27/19 23:43 Morphine Sulfate IVPUSH 2 mg Q6H PRN Administration PAIN LEVEL 7 - 10 Nifedipine 60 mg 03/16/19 22:00 03/28/19 09:45 Procardia Xl - PO 60 mg BID [facility] Administration Ondansetron HCl 4 mg 03/25/19 11:11 03/25/19 23:53 Zofran Odt - SL 4 mg Q6H PRN Administration NAUSEA AND/OR VOMITING Pancrelipase 1 cap 03/16/19 12:00 03/28/19 11:[address] 36,000 Units Capsule PO 1 cap TIDCM [facility] Administration Polyethylene Glycol 17 gm 03/15/19 22:45 03/28/19 09:45 Miralax (For Daily Use) - PO 17 gm BID [facility] Administration Senna 2 tab 03/16/19 22:00 03/19/19 20:51 Senna - PO 2 tab HS PRN Administration CONSTIPATION Valsartan 320 mg 03/28/19 10:00 03/28/19 09:44 Diovan - PO 320 mg DAILY [facility] Administration Impression 1. JASPER 2. CKD 3. HLD 4.diverticulosis 5. HTN 6. DM 7. proteinuria 8. hypoalbuminemia 9. UTI 10. pleural effusion Impression - bp is improved - no new labs - will need outpt follow up - cont arb - cont lasix - monitor volume status, improved
[2019-03-28] MEDS ORDERED: INSULIN (NOVOLOG) ASPART 100 UNITS/ML 10ML VIAL ONE (16:50)
[2019-03-28 18:19] VITALS: BP 139/59; PULSE 53; TEMP 97.6
== END 2019-03-28 19:24 | disposition home health service (06) | DRG 391 ==
LOC: JER 14:34 → JERBED 19:03 → J7W 23:37 → JERBED 03-18 15:46 → J7W 03-18 15:48 → JERBED 03-18 16:03 → J7W 03-18 16:04
PROVIDERS: ADMIT Internal Medicine; ATTEND Family Medicine
PROC: 30233N1 Transfusion of Nonautologous Red Blood Cells into Peripheral Vein, Percutaneous Approach (ICD-10-PCS; principal; 2019-03-20)
DX: K58.1 Irritable bowel syndrome with constipation (principal); I50.33 Acute on chronic diastolic (congestive) heart failure; I13.0 Hypertensive heart and chronic kidney disease with heart failure and stage 1 through stage 4 chronic kidney disease, or unspecified chronic kidney disease; N17.9 Acute kidney failure, unspecified; E87.1 Hypo-osmolality and hyponatremia; N30.80 Other cystitis without hematuria; E11.9 Type 2 diabetes mellitus without complications; N18.9 Chronic kidney disease, unspecified; G20 Parkinson's disease; F02.80 Dementia in other diseases classified elsewhere, unspecified severity, without behavioral disturbance, psychotic disturbance, mood disturbance, and anxiety; I27.20 Pulmonary hypertension, unspecified; D50.0 Iron deficiency anemia secondary to blood loss (chronic); E78.5 Hyperlipidemia, unspecified; E87.70 Fluid overload, unspecified; E03.9 Hypothyroidism, unspecified; D47.3 Essential (hemorrhagic) thrombocythemia; K21.9 Gastro-esophageal reflux disease without esophagitis
CPT/HCPCS: 36415; 36430; 36511; 70450-TC; 71045-TC-FY; 74018-TC-FY; 74176-TC; 76700-TC; 80048; 80053; 81003; 82565; 82570; 82607; 82728; 82747; 82784; 82962; 83540; 83550; 83605; 83690; 83735; 83883; 84100; 84156; 84300; 84439; 85014; 85025; 85027; 85044; 85651; 86140; 86850; 86900; 86901; 86922; 87040; 87086; 93005; 93010; 93970-TC; 93971; 94010; 94640; 94761; 97116-GP; 97161-GP; 99285-25; J0131; J0475; J1439; J1644; J3480; J7030; P9038; P9058; Q0162

== ENCOUNTER 2019-04-24 09:14 | Inpatient (IN) | payer OTHER ==
[2019-04-24] MEDS ORDERED: SODIUM CHLORIDE 0.9% 500 ML INFUS.BAG IV ONE (10:22)
[2019-04-24] MEDS ORDERED: FAMOTIDINE 20 MG/50 ML IVPB 20 MG/50 ML MG IVPB ONE ×2 (10:22→10:27)
[2019-04-24] MEDS ORDERED: ACETAMINOPHEN 1000 MG/100 ML VIAL (NON FORMULARY) IVPB ONE ×2 (10:22→18:54)
[2019-04-24] MEDS ORDERED: ACETAMINOPHEN INJECTION 100 ML IVPB ONE ×3 (10:27→20:15)
[2019-04-24] MEDS ORDERED: ONDANSETRON 4 MG/2 ML VIAL IVPUSH ONE ×2 (10:37→17:04)
--- NOTE | 2019-04-24 10:48 | PDOC ---
History of Present Illness - General Chief Complaint: Nausea/Vomiting Stated Complaint: ABD PAIN Time Seen by Provider: 04/24/19 09:48 - History of Present Illness Initial Comments: Linda Cole is a 79yo woman with a PMH of DM, HTN, Parkinson's, dementia, CHF, CKD, diverticulosis, IBS who presents with chronic lower abdominal pain. She says that the pain today is so severe that she "couldn't take it anymore" and needed to come to the hospital. Her son, at bedside, says that his mother is always complaining about the abdominal pain, especially in the lower abdomen. However, her overnight home advisor was "almost in tears" because the pt had been having such severe pain overnight. She also reportedly had loose stools overnight, which is new in the past day or two. The pt's son says that his sister helps the patient take her medications, and as far as he is aware she has taken all of her medications as prescribed. He notes that the pt recently took amoxicillin about a week ago for UTI, but otherwise her medications have not changed. Past History - Past Medical History Allergies/Adverse Reactions: Allergies Allergy/AdvReac Type Severity Reaction Status Date / Time carbidopa [From Sinemet] AdvReac Verified 04/24/19 09:22 levodopa [From Sinemet] AdvReac Verified 04/24/19 09:22 Home Medications: Ambulatory Orders Aspirin [Adult Aspirin Regimen] 81 mg PO DAILY 09/23/18 Atorvastatin Ca [Lipitor] 20 mg PO HS 09/23/18 Docusate Sodium [Stool Softener] 100 mg PO HS 09/23/18 Lipase/Protease/Amylase [Elaine Sweeney 36,000 Units Capsule] 1 each PO TID 09/23/18 Mirtazapine 30 mg PO HS 09/23/18 traMADol HCL [Ultram -] 50 mg PO TID PRN 09/23/18 Levothyroxine [Synthroid -] 25 mcg PO DAILY@0700 #30 tablet 09/30/18 Potassium Chloride [K-Dur -] 20 meq PO DAILY #30 tablet.er 09/30/18 Sennosides [Senna -] 2 tab PO HS PRN tablet 09/30/18 Donepezil HCl [Aricept] 10 mg PO DAILY #30 tablet 12/26/18 Famotidine [Pepcid] 40 mg PO BID #30 tablet 10/07/19 Insulin (Levemir) [Levemir Vial] 8 units SQ HS #100 units 12/26/18 Polyethylene Glycol 3350 [Miralax 119 gm Btl -] 17 gm PO BID #1 bottle 12/26/18 Valsartan [Diovan] 160 mg PO DAILY #30 tablet 12/26/18 Hydralazine HCl 50 mg PO TID 03/16/19 Labetalol HCl 200 mg PO TID 03/16/19 Linzess 72 mcg PO HS 03/16/19 Nifedipine ER 60 mg PO BID 03/16/19 Acetaminophen [Tylenol .Regular Strength -] 650 mg PO Q4H PRN #90 tablet Clonidine Patch [Catapres Tts Patch -] 0.2 mg TD Q7D@1000 #4 patch.tdwk Dicyclomine HCl [Bentyl -] 10 mg PO Q6H PRN #120 capsule 03/28/19 Dronabinol [Marinol -] 2.5 mg PO BID #60 capsule MDD 2 03/28/19 Dronabinol [Marinol] 2.5 mg PO DAILY #30 capsule MDD 2 03/28/19 Furosemide [Lasix -] 40 mg PO DAILY #30 tablet 03/28/19 Ondansetron [Zofran *Odt*] 4 mg SL Q6H PRN #30 tab.rapdis 03/28/19 predniSONE [Deltasone -] See Taper PO DAILY #30 tablet 03/28/19 Anemia: No Asthma: No Cancer: No Cardiac Disorders: No CVA: No COPD: No CHF: Yes DVT: No Dementia: Yes Diabetes: Yes GI Disorders: Yes (DIVERTICULOSIS, IBM) Disorders: Yes (UTERINE POLYPS,URINARY INCONTINENCE) HTN: Yes Hypercholesterolemia: Yes Liver Disease: No Psychiatric Problems: Yes (Dementia) Seizures: No Thyroid Disease: No - Surgical History Abdominal Surgery: (abdominoplasty 15 yrs ago (tissue became necrotic)) Appendectomy: Yes Cardiac Surgery: No Cholecystectomy: Yes Lung Surgery: No Neurologic Surgery: No Orthopedic Surgery: No - Immunization History Immunization Up to Date: Yes - Psycho Social/Smoking Cessation Hx Smoking Status: No Smoking History: Never smoked Have you smoked in the past 12 months: No Number of Cigarettes Smoked Daily: 0 Information on smoking cessation initiated: No Hx Alcohol Use: No Drug/Substance Use Hx: No Substance Use Type: None Hx Substance Use Treatment: No Review of Systems - Review of Systems Comments:: General: No fevers, no chills, no weight or appetite change, no malaise HEENT: No changes in vision, no changes in hearing, no congestion, no sore throat CV: No chest pain, no palpitations, no LE edema Pulm: No SOB, no cough, no wheezing GI: See HPI : No frequency, no urgency, no dysuria Musc: No back pain, no joint swelling, no recent injury Skin: No rash, no lesions, no erythema Endo: No excessive thirst, no heat/cold intolerance Heme: No unusual bruising or bleeding, no swollen glands Neuro: No syncope, no numbness/tingling, no focal weakness Vasc: No claudication Psych: No recent change in mood, no SI or HI *Physical Exam - Vital Signs Last Vital Signs Temp Pulse Resp BP Pulse Ox 98.0 F 63 17 144/53 L 99 04/24/19 09:15 04/24/19 09:15 04/24/19 09:15 04/24/19 09:15 04/24/19 09:15 - Physical Exam General: Comfortable, no acute distress HEENT: PERRL, EOMI, MMM, voice normal, normal neck ROM Cards: RRR, no murmur appreciated Pulm: Comfortable on room air, clear to auscultation bilaterally Abd: Soft, diffusely tender lower>upper, nondistended. No rigidity, no involuntary guarding, no peritoneal signs : No CVA tenderness Ext: Atraumatic. No LE edema. ROM intact. WWP Skin: Normal color, no rashes or lesions Neuro: A&Ox3, CN grossly intact, normal speech, motor/sensory grossly intact and symmetric Psych: Mood appropriate to situation ED Treatment Course - LABORATORY CBC & Chemistry Diagram: 04/24/19 12:00 04/24/19 12:00 - RADIOLOGY Radiology Studies Ordered: Category Date Time Status CHEST X-RAY PORTABLE* [RAD] Stat Radiology 04/24/19 10:22 Ordered Medical Decision Making - Medical Decision Making 04/24/19 10:48 Linda Cole is a 79yo woman with a PMH of DM, HTN, Parkinson's, dementia, CHF, CKD, diverticulosis, IBS who presents with chronic lower abdominal pain and new onset of diarrhea. - Recent admission for similar symptoms, negative workup, diagnosed with IBS. However, pt states her diarrhea is new. Also has known diverticulosis. Symptoms may be due to IBS, but could also have diverticulitis, colitis, diarrhea secondary to recent antibiotic use - CBC, CMP, lipase, lactate, trop, EKG, CXR - CT abd/pelvis. Per chart review, Cr is around 2. Will order w/o contrast. 04/24/19 13:19 - Labs reviewed. No concerning abnormalities - EKG w/ HR 50. - Pt sleeping comfortably - Pt to be taken for CT 04/24/19 14:14 - CT completed, reviewed in ED. No significant abnormalities appreciated. Radiology report pending 04/24/19 14:23 - Vitals recehcked. SBP now 180. Home meds hydralazine 50mg and labetalol 200mg normally taken at 1pm. Ordered home BP meds 04/24/19 16:07 - Cdiff positive - PO vanc, IV flagyl ordered - Will admit for additional management given severe pain. Sign out given to Dr Espana by Dr Buitrago. 04/24/19 17:23 - Severe abdominal pain restarting. IV morphine, IV zofran ordered Discussed with Dr Iftikhar Schaefer PGY2 Discharge - Discharge Information Problems reviewed: Yes Clinical Impression/Diagnosis: Diarrhea, Clostridium difficile diarrhea Abdominal pain Qualifiers: Abdominal location: generalized Qualified Code(s): R10.84 - Generalized abdominal pain Condition: Stable - Admission Yes - Follow up/Referral - Patient Discharge Instructions - Post Discharge Activity
[2019-04-24] MEDS ORDERED: ONDANSETRON 4 MG/2 ML VIAL ONE ×2 (12:20→17:45)
[2019-04-24 12:39] LABS: BASO % 0.6 % (0-2.0); EOS % 1.2 % (0-4.5); HEMATOCRIT 33.9 % (32.4-45.2); HEMOGLOBIN 11.6 GM/dL (10.7-15.3); LYMPH % 4.5 % (8-40); MCH 29.1 pg (25.7-33.7); MCHC 34.2 g/dl (32.0-36.0); MEAN CELL VOLUME 85.1 fl (80-96); MEAN PLT VOLUME 7.7 fl (7.5-11.1); MONO % 6.6 % (3.8-10.2); NEUT % 87.1 % (42.8-82.8); PLATELET COUNT 364 K/MM3 (134-434); RBC 3.98 M/mm3 (3.60-5.2); RDW 15.6 % (11.6-15.6); WHITE BLOOD COUNT 8.7 K/mm3 (4.0-10.0)
--- NOTE | 2019-04-24 12:44 | PDOC ---
Documentation entered by Ella Lan SCRIBE, acting as scribe for Carlene Buitrago DO. Carlene Buitrago DO: This documentation has been prepared by the Riky hayden Nirvannie, SCRIBE, under my direction and personally reviewed by me in its entirety. I confirm that the documentation accurately reflects all work, treatment, procedures, and medical decision making performed by me. Attending Attestation - Resident Resident Name: OliveAnabell - ED Attending Attestation I have performed the following: I have examined & evaluated the patient, The case was reviewed & discussed with the resident, I agree w/resident's findings & plan, Exceptions are as noted - HPI HPI: 04/24/19 12:00 The patient is a 79 year old female, with a significant past medical history of DM, HTN, Parkinson's Disease, Dementia, CHF, CKD, and Diverticulosis, who presents to the emergency department with worsening diarrhea. As per patient and aid and bedside, she has chronic diarrhea and is currently on Amoxicillin for a UTI. They note her diarrhea has worsened and is described as watery, foul- smelling, nonbloody, and mucous-like, prompting their arrival to the ED. While in the ED, patient has 4 episodes of diarrhea, She denies recent fevers, chills, headache or dizziness. She denies recent nausea or vomit. She denies recent dysuria, frequency, urgency or hematuria. She denies recent chest pain or shortness of breath. Allergies: NKA Primary Care Physician: Dr Garces GI: Dr Ibanez - Physicial Exam PE: 04/24/19 12:01 Constitutional: Awake, alert, oriented. No acute distress. Head: Normocephalic. Atraumatic Eyes: PERRL. EOMI. Conjunctivae are not pale. ENT: + Mucous membranes are dry and intact. Neck: Supple. Full ROM. No lymphadenopathy. Cardiovascular: Regular rate. Regular rhythm. S1, S2 regular. Distal pulses are 2+ and symmetric. Pulmonary/Chest: No evidence of respiratory distress. Clear to auscultation bilaterally No wheezing, rales or rhonchi. Abdominal: +Diffuse tenderness. Right pelvis skin graft, well-healed. Soft and non-distended. No rebound, guarding or rigidity. No organomegaly. No palpable masses. Good bowel sounds. Rectal: +[place], mucous-like, foul-smelling feces in diaper. Back: No CVA tenderness. Musculoskeletal: No edema. No cyanosis. No clubbing. Full range of motion in all extremities. No calf tenderness. Radial/pedal pulses are intact and 2+ bilaterally Skin: Skin is warm and dry. No petechiae. No purpura. Neurological: Alert and oriented to person, place, and time. Cranial nerves II -XII are grossly intact. Normal speech. Strength is grossly symmetric. No sensory deficits. Psychiatric: Good eye contact. Normal interaction, affect and behavior. - Medical Decision Making 04/24/19 12:31 a/p: 79yo female with diffuse abd pain and diarrhea -pt with chronic diarrhea and abd spasms -pt with worsening diarrhea - 4-6 episodes a day that is mucus and light orange/ brown -worsening abd pain -pt with recent abx use - amox for uti -will send labs, ct abd/pelvis, ivf hydration, stool for c diff -will monitor and reassess -pt will most likely need admission 04/24/19 14:[address] pending Andrew the son - [phone] 04/24/19 14:57 pts bp meds ordered 04/24/19 14:57 no elevated wbc 04/24/19 15:49 pt with cdiff + antigen + will start vanco pt will be admitted 04/24/19 15:50 call placed to Andrew to update him 04/24/19 15:[address] garces for admission 04/24/19 16:07 son updated pt placed on contact precautions oral vanco ordred case discussed with dr. garces who accepts pt to service Heart Score/ECG Review - ECG Intrepretation Comment:: 04/24/19 12:50 sinus at 77, lafb, baseline artifact, 1st degree av block, abnl ekg, no acute st /t wave findings
[2019-04-24] MEDS ORDERED: morphine CARPU-JECT 4 MG/1 ML DISP.SYRIN IVPUSH ONE ×2 (12:45→17:04)
--- NOTE | 2019-04-24 13:16 | EKG ---
Test Reason : Blood Pressure : / mmHG Vent. Rate : 050 BPM Atrial Rate : 077 BPM P-R Int : 180 ms QRS Dur : 118 ms QT Int : 444 ms P-R-T Axes : -06 -54 -15 degrees QTc Int : 404 ms UNDETERMINED RHYTHM LIKELY SINUS RHYTHM WITH NOONCONDUCTED APCs MOTION ARTIFACT LEFT ANTERIOR FASCICULAR BLOCK NONSPECIFIC ST AND T WAVE ABNORMALITY ABNORMAL ECG WHEN COMPARED WITH ECG OF 15-MAR-2019 15:33, CURRENT ARRHYTHMIA PRESENT. Confirmed by Nhan Valverde ([id number]) on 04/24/2019 1:16:24 PM Referred By: Confirmed By:Nhan Valverde
[2019-04-24 13:33] LABS: ALBUMIN 3.3 g/dl (3.4-5.0); BILIRUBIN,TOTAL 1.1 mg/dL (0.2-1); BLOOD UREA NITROGEN 28.7 mg/dL (7-18); CREATININE 1.1 mg/dL (0.55-1.3); POTASSIUM 3.4 mmol/L (3.5-5.1); TOT PROT 6.7 g/dl (6.4-8.2)
[2019-04-24] MEDS ORDERED: morphine SULFATE 4 MG/ML VIAL ONE ×2 (14:08→17:09)
[2019-04-24] MEDS ORDERED: hydrALAZINE HCL 50 MG TABLET (FP) PO ONE (14:21)
[2019-04-24] MEDS ORDERED: LABETALOL HCL 200 MG TABLET (FP) PO ONE (14:21)
[2019-04-24] MEDS ORDERED: LABETALOL HCL 100 MG TABLET (FP) ONE (14:38)
[2019-04-24] MEDS ORDERED: hydrALAZINE HCL 25 MG TABLET (FP) ONE (14:39)
[2019-04-24] MEDS ORDERED: VANCOMYCIN 250 MG/5 ML ORAL SOLUTION PO ONE (15:50)
[2019-04-24] MEDS ORDERED: traMADol HCL 50 MG TABLET PO PRN (19:18)
[2019-04-24] MEDS ORDERED: ACETAMINOPHEN 325 MG TABLET (FP) PO PRN (19:18)
[2019-04-24] MEDS ORDERED: PATIENT'S OWN MEDICATION (NON-FORMULARY) (Famotidine [Pepcid] 40 MG) PO SCH (22:00)
[2019-04-24] MEDS: hydrALAZINE HCL 50 MG TABLET (FP) PO SCH (23:06)
[2019-04-24] MEDS: D5-1/2NS+30 MEQ KCL - 30 MEQ/1,000 ML INFUS.BAG IV SCH (23:06)
[2019-04-24] MEDS: INSULIN SLIDING SCALE (NOVOLOG) 1 VIAL SQ SCH (23:06)
[2019-04-24] MEDS: DRONABINOL 2.5 MG CAPSULE PO SCH (23:07)
[2019-04-24] MEDS: LABETALOL HCL 200 MG TABLET (FP) PO SCH (23:07)
[2019-04-24] MEDS: HEPARIN NA (PORCINE) 5,000 UNITS/ML 1ML VIAL SQ SCH (23:07)
[2019-04-24] MEDS: ATORVASTATIN CA 20 MG TABLET (FP) PO SCH (23:07)
[2019-04-24] MEDS: MIRTAZAPINE 30 MG TABLET (FP) PO SCH (23:07)
[2019-04-24] MEDS: NIFEdipine E.R 60 MG TABLET PO SCH (23:10)
[2019-04-24] MEDS ORDERED: PT OWN MED DRAWER 7, Y5N ONE (23:28)
[2019-04-25] MEDS: VANCOMYCIN 250 MG/5 ML ORAL SOLUTION PO SCH ×5 (00:02→23:46)
[2019-04-25 00:18] VITALS: BMI 23.4
[2019-04-25] MEDS: LEVOTHYROXINE NA 25 MCG TABLET (FP) PO SCH (06:13)
[2019-04-25] MEDS: LABETALOL HCL 200 MG TABLET (FP) PO SCH ×3 (06:14→21:25)
[2019-04-25] MEDS: hydrALAZINE HCL 50 MG TABLET (FP) PO SCH ×3 (06:15→21:25)
[2019-04-25] MEDS: INSULIN SLIDING SCALE (NOVOLOG) 1 VIAL SQ SCH ×5 (06:17→21:26)
[2019-04-25 06:39] LABS: BASO % 0.7 % (0-2.0); EOS % 3.6 % (0-4.5); HEMATOCRIT 28.8 % (32.4-45.2); HEMOGLOBIN 9.9 GM/dL (10.7-15.3); LYMPH % 15.5 % (8-40); MCHC 34.2 g/dl (32.0-36.0); MEAN CELL VOLUME 84.9 fl (80-96); MEAN PLT VOLUME 7.5 fl (7.5-11.1); MONO % 12.7 % (3.8-10.2); NEUT % 67.5 % (42.8-82.8); PLATELET COUNT 296 K/MM3 (134-434); RDW 15.4 % (11.6-15.6); WHITE BLOOD COUNT 5.6 K/mm3 (4.0-10.0)
[2019-04-25 07:08] LABS: ALBUMIN 2.9 g/dl (3.4-5.0); BLOOD UREA NITROGEN 23.5 mg/dL (7-18); CALCIUM 8.3 mg/dL (8.5-10.1); CREATININE 1.1 mg/dL (0.55-1.3); POTASSIUM 3.3 mmol/L (3.5-5.1); TOT PROT 5.6 g/dl (6.4-8.2)
--- NOTE | 2019-04-25 08:37 | HP ---
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 (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 and 5 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4 F 04/25/19 06:00 Pulse Rate 60 04/25/19 06:00 Respiratory Rate 18 04/25/19 06:00 Blood Pressure 138/84 04/25/19 06:00 O2 Sat by Pulse Oximetry (%) 92 L 04/24/19 20:00 Cardiovascular: Yes: Regular Rate and Rhythm Respiratory: Yes: Regular, CTA Bilaterally Gastrointestinal: Yes: Normal Bowel Sounds, Soft. No: Tenderness Edema: No Labs: CBC, BMP 04/25/19 05:20 04/25/19 05:20 Problem List - Problems (1) Abdominal pain Assessment/Plan: Resolved maybe due to colitis abx-vanco monitor Code(s): R10.9 - UNSPECIFIED ABDOMINAL PAIN Qualifiers: Abdominal location: generalized Qualified Code(s): R10.84 - Generalized abdominal pain (2) Clostridium difficile diarrhea Assessment/Plan: po vanco id consult Code(s): A04.72 - ENTEROCOLITIS D/T CLOSTRIDIUM DIFFICILE, NOT SPCF RECUR (3) Anemia Assessment/Plan: hgb dropping maybe due to hydration monitor Code(s): D64.9 - ANEMIA, UNSPECIFIED (4) CKD (chronic kidney disease) Assessment/Plan: ivf and monitor Code(s): N18.9 - CHRONIC KIDNEY DISEASE, UNSPECIFIED (5) Diabetes Assessment/Plan: bgm with ss Code(s): E11.9 - TYPE 2 DIABETES MELLITUS WITHOUT COMPLICATIONS
[2019-04-25] MEDS: KCL 10 MEQ IVPB 10 MEQ/100 ML INFUS.BAG IVPB SCH ×2 (09:15→12:17)
[2019-04-25] MEDS ORDERED: VALSARTAN 160 MG TABLET (UD) PO SCH (10:00)
[2019-04-25] MEDS: predniSONE 20 MG TABLET (UD) PO SCH (10:15)
[2019-04-25] MEDS: DONEPEZIL HCL 10 MG TABLET (FP) PO SCH (10:15)
[2019-04-25] MEDS: DRONABINOL 2.5 MG CAPSULE PO SCH ×2 (10:15→21:26)
[2019-04-25] MEDS: VALSARTAN 160 MG TABLET (UD) PO SCH (10:16)
[2019-04-25] MEDS: ASPIRIN COATED 81 MG TABLET.EC PO SCH (10:16)
[2019-04-25] MEDS: HEPARIN NA (PORCINE) 5,000 UNITS/ML 1ML VIAL SQ SCH ×2 (10:17→21:26)
[2019-04-25] MEDS: NIFEdipine E.R 60 MG TABLET PO SCH ×2 (10:17→21:26)
--- NOTE | 2019-04-25 11:47 | PN ---
Progress Note (short form) - Note Progress Note: ID CONSULT DICTATED C DIFFICILE COLITIS CONTINUE VANCOMYCIN 125MG PO QID COMPLETE 10D COURSE CONTACT PRECAUTIONS
[2019-04-25] MEDS ORDERED: KCL 10 MEQ IVPB 10 MEQ/100 ML INFUS.BAG IVPB SCH (12:15)
--- NOTE | 2019-04-25 12:37 | CONS ---
DATE OF CONSULTATION: DATE OF DICTATION: 04/25/2019 HISTORY OF PRESENT ILLNESS: The patient is a 79-year-old female evaluated for positive C-difficile colitis. The patient was recently hospitalized in late February and early March of this year with urinary tract infection. She received a course of antibiotic therapy. Patient was discharged to home on March 28, 2019. Over the past several days she has developed onset of watery diarrhea. She reports crampy abdominal pain, which became severe in nature to the point where it was unbearable. She also had watery non-bloody stool, which was foul-smelling. She reports 6 to 7 bowel movements a day. She presented to the emergency room where a CAT scan of the abdomen and pelvis was performed. CAT scan showed development of concentric wall thickening of the right colon, small to moderate amount of air, which was again seen in the urinary bladder, as well as small to moderate bilateral pleural effusions. C-difficile angtigen now positive. She was started on vancomycin. At the present time she reports improvement in the abdominal pain. She is pain-free at the present time. She denies any vomiting. The nurse reports that she has not had a bowel movement today. There were no reports of rectal bleeding. PAST MEDICAL HISTORY: Positive for dementia, Parkinsonism, hypertension, diabetes mellitus, congestive heart failure, chronic kidney disease. PAST SURGICAL HISTORY: She is status post appendectomy and cholecystectomy. ALLERGIES: Patient denies allergies; however, CARBIDOPA and LEVODOPA listed. SOCIAL HISTORY: Non-smoker, non-drinker. She lives in the community with home health aide. SYSTEMS REVIEW: Neurologic: No loss of consciousness, seizure activity, focal weakness. Cardiac: Negative chest pain or palpitations. Respiratory: Negative cough, or sputum production. Gastrointestinal: As per HPI. Genitourinary: Urinary tract infection. LABORATORY DATA: White count 5.6, hematocrit 28.8, platelets 296. Creatinine 1.1. C-difficile antigen positive, toxin negative. PHYSICAL EXAMINATION: General: On exam, she is awake supine in bed, in no acute distress. Vitals: Temperature 98.2, blood pressure 166/50, pulse 68 regular, respirations 18 per minute. HEENT: Sclera anicteric. Heart: Sounds S1, S2. Abdomen: Positive bowel sounds. There is mild diffuse tenderness to palpation, no rebound or rigidity. Extremities: Negative for edema. IMPRESSION: 1. Clostridium difficile colitis. 2. Status post recent urinary tract infection. RECOMMENDATIONS: Continue vancomycin 125 mg p.o. 4 times daily, complete 10-day course. Contact precautions. Thank you for the kind referral. BRANDIN MOE M.D. MEC[facility]LE/[id number]
[2019-04-25] MEDS: D5-1/2NS+30 MEQ KCL - 30 MEQ/1,000 ML INFUS.BAG IV SCH (15:26)
[2019-04-25 15:27] LABS: HEMATOCRIT 30.2 % (32.4-45.2); HEMOGLOBIN 10.2 GM/dL (10.7-15.3); MCH 28.8 pg (25.7-33.7); MCHC 33.8 g/dl (32.0-36.0); MEAN CELL VOLUME 85.2 fl (80-96); MEAN PLT VOLUME 7.4 fl (7.5-11.1); PLATELET COUNT 318 K/MM3 (134-434); RBC 3.54 M/mm3 (3.60-5.2); RDW 15.9 % (11.6-15.6); WHITE BLOOD COUNT 7.8 K/mm3 (4.0-10.0)
[2019-04-25] MEDS ORDERED: INSULIN SLIDING SCALE (NOVOLOG) 1 VIAL SQ ONE (16:51)
[2019-04-25] MEDS: MIRTAZAPINE 30 MG TABLET (FP) PO SCH (21:25)
[2019-04-25] MEDS: ATORVASTATIN CA 20 MG TABLET (FP) PO SCH (21:26)
[2019-04-26] MEDS: D5-1/2NS+30 MEQ KCL - 30 MEQ/1,000 ML INFUS.BAG IV SCH ×3 (04:07→21:03)
[2019-04-26] MEDS: INSULIN SLIDING SCALE (NOVOLOG) 1 VIAL SQ SCH ×4 (06:12→21:07)
[2019-04-26] MEDS: hydrALAZINE HCL 50 MG TABLET (FP) PO SCH ×3 (06:46→21:02)
[2019-04-26] MEDS: VANCOMYCIN 250 MG/5 ML ORAL SOLUTION PO SCH ×3 (06:46→17:34)
[2019-04-26] MEDS: LABETALOL HCL 200 MG TABLET (FP) PO SCH ×3 (06:46→21:02)
[2019-04-26] MEDS: LEVOTHYROXINE NA 25 MCG TABLET (FP) PO SCH (06:46)
[2019-04-26 07:53] LABS: BASO % 0.7 % (0-2.0); HEMOGLOBIN 9.6 GM/dL (10.7-15.3); LYMPH % 14.2 % (8-40); MCH 29.3 pg (25.7-33.7); MCHC 34.3 g/dl (32.0-36.0); MEAN CELL VOLUME 85.3 fl (80-96); MEAN PLT VOLUME 7.4 fl (7.5-11.1); MONO % 11.9 % (3.8-10.2); NEUT % 70.2 % (42.8-82.8); PLATELET COUNT 289 K/MM3 (134-434); RBC 3.28 M/mm3 (3.60-5.2); RDW 15.7 % (11.6-15.6); WHITE BLOOD COUNT 6.3 K/mm3 (4.0-10.0)
[2019-04-26 08:02] LABS: ALBUMIN 2.8 g/dl (3.4-5.0); BILIRUBIN,TOTAL 0.7 mg/dL (0.2-1); BLOOD UREA NITROGEN 27.5 mg/dL (7-18); CALCIUM 8.3 mg/dL (8.5-10.1); CREATININE 1.7 mg/dL (0.55-1.3); MAGNESIUM 1.9 mg/dL (1.8-2.4); POTASSIUM 4.4 mmol/L (3.5-5.1); TOT PROT 5.7 g/dl (6.4-8.2)
[2019-04-26] MEDS: ASPIRIN COATED 81 MG TABLET.EC PO SCH (10:38)
[2019-04-26] MEDS: DONEPEZIL HCL 10 MG TABLET (FP) PO SCH (10:38)
[2019-04-26] MEDS: predniSONE 20 MG TABLET (UD) PO SCH (10:38)
[2019-04-26] MEDS: VALSARTAN 160 MG TABLET (UD) PO SCH (10:38)
[2019-04-26] MEDS: HEPARIN NA (PORCINE) 5,000 UNITS/ML 1ML VIAL SQ SCH ×2 (10:38→21:02)
[2019-04-26] MEDS: DRONABINOL 2.5 MG CAPSULE PO SCH ×2 (10:38→21:02)
[2019-04-26] MEDS: NIFEdipine E.R 60 MG TABLET PO SCH ×2 (10:39→21:02)
--- NOTE | 2019-04-26 11:08 | PN ---
Progress Note, Physician Chief Complaint: Abdominal Pain C-diff History of Present Illness: Previous notes and events reviewed awake and alert NAD noted with LFT elevation no reports of diarrhea afebrile no leukocytosis - Current Medication List Current Medications: Active Medications Acetaminophen (Tylenol -) 650 mg PO Q4H PRN PRN Reason: PAIN LEVEL 6-10 Aspirin (Ecotrin -) 81 mg PO DAILY [facility] Last Admin: 04/26/19 10:38 Dose: 81 mg Atorvastatin Calcium (Lipitor -) 20 mg PO [facility] Last Admin: 04/25/19 21:26 Dose: 20 mg Clonidine HCl (Catapres Tts Patch -) 0.2 mg TD Q7D@1000 [facility] Donepezil HCl (Aricept -) 10 mg PO DAILY [facility] Last Admin: 04/26/19 10:38 Dose: 10 mg Dronabinol (Marinol -) 2.5 mg PO BID [facility] Last Admin: 04/26/19 10:38 Dose: 2.5 mg Heparin Sodium (Porcine) (Heparin -) 5,000 unit SQ BID [facility] Last Admin: 04/26/19 10:38 Dose: 5,000 unit Hydralazine HCl (Apresoline -) 50 mg PO TID [facility] Last Admin: 04/26/19 06:46 Dose: Not Given Potassium Chloride/Dextrose/Sod Cl (D5-1/2ns+30 Meq Kcl -) 30 meq in 1,000 mls @ 83 mls/hr IV ASDIR [facility] Last Admin: 04/26/19 04:07 Dose: 83 mls/hr Insulin Aspart (Novolog Vial Sliding Scale -) [address] [facility]; Protocol Last Admin: 04/26/19 06:12 Dose: Not Given Labetalol HCl (Normodyne -) 200 mg PO TID [facility] Last Admin: 04/26/19 06:46 Dose: Not Given Levothyroxine Sodium (Synthroid -) 25 mcg PO DAILY@0700 [facility] Last Admin: 04/26/19 06:46 Dose: Not Given Mirtazapine (Remeron -) 30 mg PO [facility] Last Admin: 04/25/19 21:25 Dose: 30 mg Nifedipine (Procardia Xl -) 60 mg PO BID [facility] Last Admin: 04/26/19 10:39 Dose: 60 mg Non-Formulary Medication (Famotidine [Pepcid]) 40 mg PO BID [facility] Prednisone (Deltasone -) 20 mg PO DAILY [facility] Last Admin: 04/26/19 10:38 Dose: 20 mg Tramadol HCl (Ultram -) 50 mg PO TID PRN PRN Reason: PAIN LEVEL 1-5 Last Admin: 04/24/19 23:30 Dose: 50 mg Valsartan (Diovan -) 160 mg PO DAILY [facility] Last Admin: 04/26/19 10:38 Dose: 160 mg Vancomycin HCl (Vancomycin Oral Solution) 125 mg PO Q6HPO [facility] Last Admin: 04/26/19 06:46 Dose: Not Given - Objective Vital Signs: Vital Signs Temperature 98 F 04/26/19 10:00 Pulse Rate 58 L 04/26/19 10:00 Respiratory Rate 20 04/26/19 10:00 Blood Pressure 166/61 04/26/19 10:00 O2 Sat by Pulse Oximetry (%) 95 04/25/19 21:00 Constitutional: Yes: No Distress, Calm Eyes: Yes: Conjunctiva Clear HENT: Yes: Atraumatic Cardiovascular: Yes: Regular Rate and Rhythm Respiratory: Yes: Regular, Diminished Gastrointestinal: Yes: Normal Bowel Sounds, Soft, Tenderness (diffuse) Genitourinary: Yes: Incontinence Musculoskeletal: Yes: Muscle Weakness Extremities: Yes: WNL Edema: No Neurological: Yes: Alert Psychiatric: Yes: Alert Labs: CBC, BMP 04/26/19 06:20 04/26/19 06:20 Microbiology 04/24/19 12:40 Stool Clostridioides difficile Antigen - Final 04/24/19 12:40 Stool Clostridioides difficile Toxin Assay - Final Problem List - Problems (1) Abdominal pain Assessment/Plan: -Abdominal US -CTAP shows mild concentric wall thickening along the right colon, development of mild prominence of pancreatic head, small to moderate amount of air seen within urinary bladder lumen, small to moderate bilateral pleural effusion seen with resultant bibasilar compressive atelectasis, these pleural effusion appear mildly increased in size since previous exam, small pericardial effusion -GI consult Code(s): R10.9 - UNSPECIFIED ABDOMINAL PAIN Qualifiers: Abdominal location: generalized Qualified Code(s): R10.84 - Generalized abdominal pain (2) Clostridium difficile diarrhea Assessment/Plan: -Contact precaution -Vancomycin PO q6h -no leukocytosis -afebrile -ID on board Code(s): A04.72 - ENTEROCOLITIS D/T CLOSTRIDIUM DIFFICILE, NOT SPCF RECUR (3) JASPER (acute kidney injury) Assessment/Plan: -BUN/Cr 27.5/1.7 -renal consult due to jump in Cr -monitor renal function daily Code(s): N17.9 - ACUTE KIDNEY FAILURE, UNSPECIFIED (4) CHF (congestive heart failure) Assessment/Plan: -1L fluid restriction -low Na diet -strict I&O -daily weights Code(s): I50.9 - HEART FAILURE, UNSPECIFIED Qualifiers: (5) Constipation Assessment/Plan: -Miralax Code(s): K59.00 - CONSTIPATION, UNSPECIFIED (6) Dementia Assessment/Plan: -Aricept Code(s): F03.90 - UNSPECIFIED DEMENTIA WITHOUT BEHAVIORAL DISTURBANCE (7) GERD (gastroesophageal reflux disease) Assessment/Plan: -Pantoprazole Code(s): K21.9 - GASTRO-ESOPHAGEAL REFLUX DISEASE WITHOUT ESOPHAGITIS (8) HLD (hyperlipidemia) Assessment/Plan: -Atorvastatin Code(s): E78.5 - HYPERLIPIDEMIA, UNSPECIFIED (9) HTN (hypertension) Assessment/Plan: -Clonidine, Hydralazine, Labetolol, Valsartan, Nifedipine -low Na Code(s): I10 - ESSENTIAL (PRIMARY) HYPERTENSION (10) Hypothyroidism Assessment/Plan: -Levothyroxine Code(s): E03.9 - HYPOTHYROIDISM, UNSPECIFIED Assessment/Plan see problem list dvt ppx
[2019-04-26] MEDS: PANTOPRAZOLE 40 MG TABLET PO SCH (13:09)
[2019-04-26] MEDS: ATORVASTATIN CA 20 MG TABLET (FP) PO SCH (21:02)
[2019-04-26] MEDS: MIRTAZAPINE 30 MG TABLET (FP) PO SCH (21:02)
[2019-04-27] MEDS: VANCOMYCIN 250 MG/5 ML ORAL SOLUTION PO SCH ×2 (00:30→06:17)
[2019-04-27] MEDS: hydrALAZINE HCL 50 MG TABLET (FP) PO SCH (06:16)
[2019-04-27] MEDS: LABETALOL HCL 200 MG TABLET (FP) PO SCH (06:16)
[2019-04-27] MEDS: LEVOTHYROXINE NA 25 MCG TABLET (FP) PO SCH (06:16)
[2019-04-27] MEDS: INSULIN SLIDING SCALE (NOVOLOG) 1 VIAL SQ SCH (06:17)
[2019-04-27] MEDS: D5-1/2NS+30 MEQ KCL - 30 MEQ/1,000 ML INFUS.BAG IV SCH (07:07)
--- NOTE | 2019-04-27 08:44 | CON.GI ---
Consult Consult Specialty:: GI Referred by:: FEMI Bone Reason for Consultation:: Prominent pancreatic head on CT scan - History of Present Illness History of Present Illness: Patient is a 79 y/o female with past medical history of DM, HTN, Parkinson's Disease, Dementia, CHF, CKD, Diverticulosis, IBS. Consult was placed due to abnormal finding on CT scan. CTAP on admission showed development of mild prominence of pancreatic head. Patient denies dysphagia, nausea, vomiting, diarrhea, constipation, abdominal pain, rectal bleeding, or melena. - History Source History Provided By: Patient Limitations to Obtaining History: No Limitations - Past Medical History [employer] [place] [employer]: Yes: Dementia, Peripheral Neuropathy, Parkinson's Cardio/Vascular: Yes: CHF, HTN, Hyperlipdemia Gastrointestinal: Yes: Diverticulosis ...: No Psych: Yes: Anxiety Musculoskeletal: Yes: Osteoarthritis Endocrine: Yes: Diabetes Mellitus - Past Surgical History Past Surgical History: Yes: Appendectomy, Cholecystectomy, - Alcohol/Substance Use Hx Alcohol Use: No - Smoking History Smoking history: Never smoked Have you smoked in the past 12 months: No Aproximately how many cigarettes per day: 0 - Social History Usual Living Arrangement: Alone 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 (also has FUSION ANALYST 6 hours x5 days and 5 hours x2 days) History of Recent Travel: No Home Medications - Allergies Allergies/Adverse Reactions: Allergies Allergy/AdvReac Type Severity Reaction Status Date / Time carbidopa [From Sinemet] AdvReac Verified 04/24/19 09:22 levodopa [From Sinemet] AdvReac Verified 04/24/19 09:22 - Home Medications Home Medications: Ambulatory Orders Levothyroxine [Synthroid -] 25 mcg PO DAILY 04/24/19 Aspirin 81 mg PO DAILY 04/25/19 Atorvastatin Ca [Lipitor] 20 mg PO HS 04/25/19 Bupropion HCl [Wellbutrin -] 150 mg PO DAILY 04/25/19 Donepezil HCl 10 mg PO DAILY 04/25/19 Furosemide 80 mg PO TID 04/25/19 Hydralazine HCl 50 mg PO TID 04/25/19 Labetalol HCl [Normodyne -] 200 mg PO TID 04/25/19 Lipase/Protease/Amylase [Elaine Sweeney 36,000 Units Capsule] 1 each PO TID 04/25/19 Mirtazapine 30 mg PO HS 04/25/19 Nifedipine [Procardia Xl] 60 mg PO BID 04/25/19 Olmesartan Medoxomil [Benicar -] 40 mg PO DAILY 04/25/19 Potassium Chloride 20 meq PO DAILY 04/25/19 Review of Systems - Review of Systems Constitutional: reports: No Symptoms Eyes: reports: No Symptoms HENT: reports: No Symptoms Neck: reports: No Symptoms Cardiovascular: reports: No Symptoms Respiratory: reports: No Symptoms Gastrointestinal: reports: No Symptoms Genitourinary: reports: No Symptoms Breasts: reports: No Symptoms Reported Musculoskeletal: reports: No Symptoms Integumentary: reports: No Symptoms Neurological: reports: No Symptoms Endocrine: reports: No Symptoms Hematology/Lymphatic: reports: No Symptoms Psychiatric: reports: No Symptoms Physical Exam-GI Vital Signs: Vital Signs Temperature 97.8 F 04/27/19 06:00 Pulse Rate 62 04/27/19 06:00 Respiratory Rate 18 04/27/19 06:00 Blood Pressure 140/85 04/27/19 06:00 O2 Sat by Pulse Oximetry (%) 97 04/26/19 21:00 Constitutional: Yes: No Distress, Calm Eyes: Yes: Conjunctiva Clear HENT: Yes: Atraumatic Neck: Yes: Tenderness Respiratory: Yes: Regular, Diminished, On Nasal O2 Gastrointestinal Inspection: Yes: WNL. No: Ascites, Distention, Hernia, Scars, Other ...Auscultate: Yes: Normoactive Bowel Sounds. No: Hyperactive Bowel Sounds, Hypoactive Bowel Sounds, No Bowel Sounds, Other ...Palpate: Yes: Soft. No: Firm/Rigid, Guarding, Hepatomegaly, Mass, Pulsatile Mass, Splenomegaly, Tenderness, Tenderness, Epigastium, Tenderness, Rebound, Other ...Percussion: Yes: Tympanitic. No: Dullness, Fluid Wave, Other Neurological: Yes: Alert Psychiatric: Yes: Alert Labs: CBC, BMP 04/26/19 06:20 04/26/19 06:20 Imaging - Results Cat Scan: Report Reviewed Problem List - Problems (1) Abnormal CT of the abdomen Assessment/Plan: >CTAP shows development of mild prominence of pancreatic head >Abdominal MRI ordered > Ca 19-9, CEA Code(s): R93.5 - ABN FINDINGS ON DX IMAGING OF ABD REGIONS, INC RETROPERITON
[2019-04-27 09:06] LABS: BASO % 0.6 % (0-2.0); EOS % 2.7 % (0-4.5); HEMATOCRIT 29.8 % (32.4-45.2); HEMOGLOBIN 9.9 GM/dL (10.7-15.3); MCH 28.7 pg (25.7-33.7); MCHC 33.1 g/dl (32.0-36.0); MEAN CELL VOLUME 86.7 fl (80-96); MEAN PLT VOLUME 7.6 fl (7.5-11.1); MONO % 8.6 % (3.8-10.2); NEUT % 77.1 % (42.8-82.8); PLATELET COUNT 319 K/MM3 (134-434); RBC 3.44 M/mm3 (3.60-5.2); RDW 15.8 % (11.6-15.6)
[2019-04-27 09:30] LABS: BILIRUBIN,TOTAL 0.5 mg/dL (0.2-1); BLOOD UREA NITROGEN 30.9 mg/dL (7-18); CALCIUM 8.6 mg/dL (8.5-10.1); CREATININE 1.8 mg/dL (0.55-1.3); POTASSIUM 5.5 mmol/L (3.5-5.1); TOT PROT 6.1 g/dl (6.4-8.2)
--- NOTE | 2019-04-27 09:57 | DS ---
Physical Examination Vital Signs: Vital Signs Temperature 97.8 F 04/27/19 06:00 Pulse Rate 62 04/27/19 06:00 Respiratory Rate 18 04/27/19 06:00 Blood Pressure 140/85 04/27/19 06:00 O2 Sat by Pulse Oximetry (%) 97 04/26/19 21:00 Findings/Remarks: FEELS GOOD TOLERATING MEALS Constitutional: Yes: No Distress Cardiovascular: Yes: Regular Rate and Rhythm Respiratory: Yes: WNL Gastrointestinal: Yes: WNL Musculoskeletal: Yes: WNL Extremities: Yes: WNL Edema: No Labs: CBC, BMP 04/27/19 08:40 04/27/19 08:40 Discharge Summary Problems reviewed: Yes Reason For Visit: CDIFF Current Active Problems Abdominal pain (Acute) Abnormal CT of the abdomen (Acute) Clostridium difficile diarrhea (Acute) Diarrhea (Acute) Transaminitis (Acute) Procedures: Principal: CT ABD Hospital Course: ADMITTED TREATED WITH IVF PAIN CONTROL , CDIFF NEGATIVE OUTPATIENT MRI ABD Goals: OUTPATIENT MRI ABDOMEN Condition: Stable - Instructions Diet, Activity, Other Instructions: SEE DR CARVALHO WEDNESDAY WILL NEED MRI ABD Referrals: Ro Carvalho MD [Primary Care Provider] - - Home Medications Comprehensive Discharge Medication List: Ambulatory Orders Levothyroxine [Synthroid -] 25 mcg PO DAILY 04/24/19 Aspirin 81 mg PO DAILY 04/25/19 Atorvastatin Ca [Lipitor] 20 mg PO HS 04/25/19 Bupropion HCl [Wellbutrin -] 150 mg PO DAILY 04/25/19 Donepezil HCl 10 mg PO DAILY 04/25/19 Furosemide 80 mg PO TID 04/25/19 Hydralazine HCl 50 mg PO TID 04/25/19 Labetalol HCl [Normodyne -] 200 mg PO TID 04/25/19 Lipase/Protease/Amylase [Elaine Sweeney 36,000 Units Capsule] 1 each PO TID 04/25/19 Mirtazapine 30 mg PO HS 04/25/19 Nifedipine [Procardia Xl] 60 mg PO BID 04/25/19 Olmesartan Medoxomil [Benicar -] 40 mg PO DAILY 04/25/19 Potassium Chloride 20 meq PO DAILY 04/25/19
[2019-04-27 10:40] VITALS: BP 146/62; PULSE 54; TEMP 97.5
[2019-04-27] MEDS: ASPIRIN COATED 81 MG TABLET.EC PO SCH (10:41)
[2019-04-27] MEDS: DRONABINOL 2.5 MG CAPSULE PO SCH (10:41)
[2019-04-27] MEDS: NIFEdipine E.R 60 MG TABLET PO SCH (10:41)
[2019-04-27] MEDS: HEPARIN NA (PORCINE) 5,000 UNITS/ML 1ML VIAL SQ SCH (10:42)
[2019-04-27] MEDS: predniSONE 20 MG TABLET (UD) PO SCH (10:42)
[2019-04-27] MEDS: VALSARTAN 160 MG TABLET (UD) PO SCH (10:42)
[2019-04-27] MEDS: PANTOPRAZOLE 40 MG TABLET PO SCH (10:42)
[2019-04-27] MEDS: DONEPEZIL HCL 10 MG TABLET (FP) PO SCH (10:42)
[2019-05-01] MEDS ORDERED: cloNIDine-TTS 0.2 MG/24 HOURS PATCH.TDWK TD SCH (10:00)
== END 2019-04-27 11:55 | disposition home or self-care (01) | DRG 372 ==
LOC: JER 09:14 → JERBED 15:51 → J4S 21:07
PROVIDERS: ADMIT Family Medicine; ATTEND Family Medicine
DX: A04.72 Enterocolitis due to Clostridium difficile, not specified as recurrent (principal); N17.9 Acute kidney failure, unspecified; I13.0 Hypertensive heart and chronic kidney disease with heart failure and stage 1 through stage 4 chronic kidney disease, or unspecified chronic kidney disease; E11.22 Type 2 diabetes mellitus with diabetic chronic kidney disease; G20 Parkinson's disease; F03.90 Unspecified dementia, unspecified severity, without behavioral disturbance, psychotic disturbance, mood disturbance, and anxiety; K57.90 Diverticulosis of intestine, part unspecified, without perforation or abscess without bleeding; E78.5 Hyperlipidemia, unspecified; D64.9 Anemia, unspecified
CPT/HCPCS: 36415; 71045-TC-FY; 74176-TC; 76700-TC; 80053; 82378; 82550; 82962; 83605; 83690; 83735; 84443; 84484; 85025; 85027; 86301; 87324; 87449; 93005; 93010; 97116-GP; 97161-GP; 99284-25; J0131; J1644

== ENCOUNTER 2019-11-23 15:46 | Inpatient (IN) | payer OTHER ==
[2019-11-23] MEDS ORDERED: SODIUM CHLORIDE 1,932 ML IV ONE (16:28)
[2019-11-23] MEDS ORDERED: CEFTRIAXONE 1,000 MG in DEXTROSE 5%-WATER - 50 ML IVPB ONE (16:30)
[2019-11-23] MEDS ORDERED: ONDANSETRON 4 MG/2 ML VIAL IVPUSH ONE (16:33)
[2019-11-23] MEDS ORDERED: ONDANSETRON *ODT* 4 MG TABLET ONE (16:36)
[2019-11-23] MEDS ORDERED: ONDANSETRON *ODT* 4 MG TABLET SL ONE (16:36)
[2019-11-23] MEDS ORDERED: CEFTRIAXONE 1 GM/50 ML BAG ONE (17:01)
[2019-11-23 17:35] LABS: BASO % 0.8 % (0-2.0); EOS % 2.7 % (0-4.5); HEMATOCRIT 22.3 % (32.4-45.2); HEMOGLOBIN 7.4 GM/dL (10.7-15.3); LYMPH % 6.2 % (8-40); MCHC 33.3 g/dl (32.0-36.0); MEAN CELL VOLUME 81.1 fl (80-96); MEAN PLT VOLUME 6.9 fl (7.5-11.1); MONO % 9.3 % (3.8-10.2); PLATELET COUNT 429 K/MM3 (134-434); RBC 2.75 M/mm3 (3.60-5.2); RDW 17.8 % (11.6-15.6); WHITE BLOOD COUNT 5.7 K/mm3 (4.0-10.0)
[2019-11-23 17:43] LABS: INR 1.08 (0.83-1.09); PROTHROMBIN TIME (PATIENT) 12.8 SEC (9.7-13.0)
[2019-11-23 17:46] LABS: ACTIVATED PTT 32.1 SECONDS (25.2-36.5)
[2019-11-23] MEDS ORDERED: ACETAMINOPHEN 1000 MG/100 ML VIAL (NON FORMULARY) IVPB ONE (17:58)
[2019-11-23] MEDS ORDERED: ACETAMINOPHEN INJECTION 100 ML IVPB ONE (18:16)
[2019-11-23 18:17] LABS: EPI CELLS 3 /uL (0-25.1); HYALINE CASTS 1 /uL (0-3.1); URINE APPEARANCE CLOUDY; URINE BACTERIA >9,000 /uL (0-1359); URINE BILIRUBIN NEGATIVE (NEGATIVE); URINE COLOR YELLOW; URINE GLUCOSE (UA) NEGATIVE (NEGATIVE); URINE KETONE NEGATIVE (NEGATIVE); URINE LEUK ESTERASE 3+ (NEGATIVE); URINE NITRITE NEGATIVE (NEGATIVE); URINE PROTEIN 2+ (NEGATIVE); URINE RBC 12 /uL (0-23.9); URINE UROBILINOGEN 0.2 mg/dL (0.2-1.0); URINE WBC 1288 /uL (0-25.8)
[2019-11-23] MEDS ORDERED: AZITHROMYCIN IVPB 500 MG in DEXTROSE 5%-WATER - 250 ML IVPB ONE (18:45)
[2019-11-23 18:48] LABS: ALBUMIN 2.8 g/dl (3.4-5.0); BILIRUBIN,TOTAL 0.4 mg/dL (0.2-1); BLOOD UREA NITROGEN 36.1 mg/dL (7-18); CALCIUM 8.3 mg/dL (8.5-10.1); CREATININE 2.5 mg/dL (0.55-1.3); POTASSIUM 3.6 mmol/L (3.5-5.1); TOT PROT 5.7 g/dl (6.4-8.2)
--- NOTE | 2019-11-23 19:07 | PDOC ---
History of Present Illness - General Chief Complaint: Pain, Acute Stated Complaint: ABD. PAIN Time Seen by Provider: 11/23/19 15:57 - History of Present Illness Initial Comments: 11/25/19 15:39 HISTORY GIVEN BY DAUGHTER: 79yo F h/o DM and HTN and recent UTI but did not finish her course of Cipro presents with equisite RLQ and suprapubic pain since this morning. She was dx ten days prior to this visit with a UTI and was prescribed Cipro. For some unknown reason she did not finish her course. Pt lives at home and is visited by aides. Apparently she was acting like herself the day before this presentation at a family [facility]. The morning of presentation the daughter found her writhing in pain and poorly responsive, only saying she is in pain. Past History - Medical History Allergies/Adverse Reactions: Allergies Allergy/AdvReac Type Severity Reaction Status Date / Time carbidopa [From Sinemet] AdvReac Verified 11/23/19 15:47 levodopa [From Sinemet] AdvReac Verified 11/23/19 15:47 Home Medications: Ambulatory Orders Levothyroxine [Synthroid -] 25 mcg PO DAILY 04/24/19 Aspirin 81 mg PO DAILY 04/25/19 Atorvastatin Ca [Lipitor] 20 mg PO HS 04/25/19 Bupropion HCl [Wellbutrin -] 150 mg PO DAILY 04/25/19 Furosemide 80 mg PO TID 04/25/19 Hydralazine HCl 50 mg PO TID 04/25/19 Labetalol HCl [Normodyne -] 200 mg PO TID 04/25/19 Lipase/Protease/Amylase [Elaine Sweeney 36,000 Units Capsule] 1 each PO TID 04/25/19 Mirtazapine 30 mg PO HS 04/25/19 Nifedipine [Procardia Xl] 60 mg PO BID 04/25/19 Olmesartan Medoxomil [Benicar -] 40 mg PO DAILY 04/25/19 Potassium Chloride 20 meq PO DAILY 04/25/19 Diclofenac Sodium 75 mg PO DAILY 11/23/19 Dicyclomine HCl 10 mg PO DAILY 11/23/19 Memantine HCl/Donepezil HCl [Namzaric 14 mg-10 mg Capsule] 1 cap PO DAILY 11/23/19 traZODone HCL [Trazodone HCl] 50 mg PO HS 11/23/19 Anemia: Yes Asthma: No Cancer: No Cardiac Disorders: No CVA: No COPD: No CHF: Yes DVT: No Dementia: Yes Diabetes: Yes GI Disorders: Yes (DIVERTICULOSIS, IBM, GERD, failure to thrive, gastroparesis) Disorders: Yes (UTERINE POLYPS,URINARY INCONTINENCE, JASPER, CKD) HTN: Yes Hypercholesterolemia: Yes Liver Disease: No Psychiatric Problems: Yes (Dementia) Seizures: No Thyroid Disease: Yes - Surgical History Abdominal Surgery: Yes (abdominoplasty 15 yrs ago (tissue became necrotic)) Appendectomy: Yes Cardiac Surgery: No Cholecystectomy: Yes Lung Surgery: No Neurologic Surgery: No Orthopedic Surgery: No - Reproductive History Is Patient Now?: No - Immunization History Immunization Up to Date: Yes - Psycho-Social/Smoking History Smoking Status: No Smoking History: Never smoked Have you smoked in the past 12 months: No Number of Cigarettes Smoked Daily: 0 - Substance Abuse Hx (Audit-C & DAST Scrn) How often the patient has a drink containing alcohol: Never Score: In Men: 4 or > Positive; In Women: 3 or > Positive: 0 Screen Result (Pos requires Nsg. Audit-10AR): Negative Review of Systems - Review of Systems Able to Perform ROS?: No (per daughter) Is the patient limited Tajik proficient: Yes Constitutional: Yes: Chills, Loss of Appetite, Weakness. No: Fever Respiratory: No: Cough, Shortness of Breath, Wheezing, Productive cough Cardiac (ROS): No: Chest Pain, Irregular Heart Rate, Lightheadedness ABD/GI: Yes: Diarrhea, Poor Appetite, Abdominal cramping. No: Abd. Pain w/ defecation, Blood Streaked Bowels, Constipated, Vomiting : Yes: Other (suprapubic pain). No: Hematuria, Incontinence, Pain Musculoskeletal: Yes: Muscle Weakness. No: Back Pain, Joint Pain Integumentary: Yes: Dryness. No: Rash Neurological: Yes: Weakness, Dizziness Hematologic/Lymphatic: No: Easy Bruising *Physical Exam - Vital Signs Last Vital Signs Temp Pulse Resp BP Pulse Ox 98.2 F 51 L 20 132/54 L 98 11/23/19 16:28 11/23/19 18:00 11/23/19 18:00 11/23/19 18:00 11/23/19 18:00 - Physical Exam General Appearance: Yes: Apparent Distress, Moderate Distress (moderate ABD pain ) HEENT: positive: Normal ENT Inspection. negative: Scleral Icterus (R), Scleral Icterus (L), Rhinorrhea Neck: positive: Trachea midline. negative: Tender Respiratory/Chest: positive: Lungs Clear, Normal Breath Sounds. negative: Respiratory Distress, Accessory Muscle Use, Rhonchi, Stridor Cardiovascular: positive: Regular Rhythm, Regular Rate, S1, S2 Gastrointestinal/Abdominal: positive: Normal Bowel Sounds, Tender (RLQ), Tenderness. negative: Rebound, Hernia, Mass Musculoskeletal: positive: Normal Inspection. negative: CVA Tenderness, CVA Tenderness (R), CVA Tenderness (L) Extremity: positive: Normal Capillary Refill, Normal Inspection, Normal Range of Motion Integumentary: positive: Normal Color, Dry Neurologic: positive: Fully Oriented, Alert. negative: Normal Mood/Affect (In pain) ED Treatment Course - LABORATORY CBC & Chemistry Diagram: 11/25/19 11:20 11/25/19 11:20 - ADDITIONAL ORDERS Additional order review: Laboratory Results 11/23/19 11/23/19 11/23/19 17:25 16:45 16:45 PT with INR INR PTT (Actin FS) Sodium 138 Potassium 3.6 Chloride 104 Carbon Dioxide 25 Anion Gap 10 BUN 36.1 H Creatinine 2.5 H Est GFR (CKD-EPI)AfAm 20.79 Est GFR (CKD-EPI)NonAf 17.93 Random Glucose 113 H Lactic Acid 1.0 Calcium 8.3 L Total Bilirubin 0.4 AST 10 L ALT 9 L Alkaline Phosphatase 99 Troponin I 0.02 Total Protein 5.7 L Albumin 2.8 L Urine Color Yellow Urine Appearance Cloudy Urine pH 5.0 Ur Specific [place] 1.011 Urine Protein 2+ H Urine Glucose (UA) Negative Urine Ketones Negative Urine Blood Negative Urine Nitrite Negative Urine Bilirubin Negative Urine Urobilinogen 0.2 Ur Leukocyte Esterase 3+ H Urine WBC (Auto) 1288 Urine RBC (Auto) 12 Urine Casts (Auto) 1 U Epithel Cells (Auto) 3 Urine Bacteria (Auto) >9,000 11/23/19 16:45 PT with INR 12.80 INR 1.08 PTT (Actin FS) 32.1 Sodium Potassium Chloride Carbon Dioxide Anion Gap BUN Creatinine Est GFR (CKD-EPI)AfAm Est GFR (CKD-EPI)NonAf Random Glucose Lactic Acid Calcium Total Bilirubin AST ALT Alkaline Phosphatase Troponin I Total Protein Albumin Urine Color Urine Appearance Urine pH Ur Specific [place] Urine Protein Urine Glucose (UA) Urine Ketones Urine Blood Urine Nitrite Urine Bilirubin Urine Urobilinogen Ur Leukocyte Esterase Urine WBC (Auto) Urine RBC (Auto) Urine Casts (Auto) U Epithel Cells (Auto) Urine Bacteria (Auto) 11/23/19 16:45 RBC 2.75 L MCV 81.1 MCHC 33.3 RDW 17.8 H MPV 6.9 L D Neutrophils % 81.0 Lymphocytes % 6.2 L D Monocytes % 9.3 Eosinophils % 2.7 Basophils % 0.8 - RADIOLOGY Radiology Studies Ordered: Category Date Time Status ABDOMEN & PELVIS CT W/O CONTR [CT] Stat CT Scan 11/23/19 18:[address] WITHOUT CONTRAST [CT] Stat CT Scan 11/23/19 18:43 Ordered - Medications Given in the ED: ED Medications Discontinued Medications Generic Name Dose Route Start Last Admin Trade Name Freq PRN Reason Stop Dose Admin Acetaminophen 1,000 mg 11/23/19 17:58 11/23/19 18:25 Ofirmev Injection - IVPB 11/23/19 17:59 1,000 mg ONCE ONE Administration Fentanyl 25 mcg 11/23/19 16:29 11/23/19 17:09 Sublimaze Injection - IVPUSH 11/23/19 16:30 25 mcg ONCE ONE Administration Sodium Chloride 1,932 mls @ 966 mls/hr 11/23/19 16:28 11/23/19 17:09 Normal Saline - 30 ml/kg infuse over 2 hr (1932 ml) 11/23/19 18:27 966 mls/hr IV Administration ONCE ONE Ceftriaxone Sodium 1,000 mg/ 50 mls @ 100 mls/hr 11/23/19 16:30 11/23/19 17:09 Dextrose IVPB 11/23/19 16:59 100 mls/hr ONCE ONE Administration Ondansetron HCl 4 mg 11/23/19 16:33 11/23/19 17:10 Zofran Injection IVPUSH 11/23/19 16:34 Not Given ONCE ONE Ondansetron HCl 4 mg 11/23/19 16:36 11/23/19 16:58 Zofran Odt - SL 11/23/19 16:37 4 mg ONCE ONE Administration Discharge - Discharge Information Problems reviewed: Yes Clinical Impression/Diagnosis: JASPER (acute kidney injury) UTI (urinary tract infection) Qualifiers: Urinary tract infection type: site unspecified - Admission Yes - Follow up/Referral - Patient Discharge Instructions - Post Discharge Activity
[2019-11-23] MEDS ORDERED: AZITHROMYCIN IVPB 500 MG/250 ML BAG IVPB ONE (19:58)
--- NOTE | 2019-11-23 20:12 | HP ---
Admitting History and Physical - Primary Care Physician PCP: Ro Espana - Admission Chief Complaint: Abdominal Pain History of Present Illness: This is a 79 y/o female with a significant PMHx of Dementia,Parkinsin's Disease, HTN, CHF, DM, CKD, Diveticulosis. Who presents to the ED with her daughter for abdominal pain x 7 days. Patient was seen by her PMD for dysuria, placed on Cipro for UTI and Iron pills for Anemia. Per the daughter the patient would not take the medications and has a poor appetite. She reorts the patient has O2 at home but does not use it. Per the daughter she denies patient having fever, chills, cough, SOB, CP, palpitations, N/V. No recent sick contacts or travel. History Source: Family Member Limitations to Obtaining History: Dementia, Language Barrier - Past Medical History [employer]: Yes: Dementia, Peripheral Neuropathy, Parkinson's Cardiovascular: Yes: CHF, HTN, Hyperlipdemia Gastrointestinal: Yes: Diverticulosis ...: No Psych: Yes: Anxiety Musculoskeletal: Yes: Osteoarthritis Endocrine: Yes: Diabetes Mellitus - Past Surgical History Past Surgical History: Yes: Appendectomy, Cholecystectomy, - Smoking History Smoking history: Never smoked Have you smoked in the past 12 months: No Aproximately how many cigarettes per day: 0 - Alcohol/Substance Use Hx Alcohol Use: No History of Substance Use: reports: None (unknown) - Social History Usual Living Arrangement: Yes: With Child 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 (also has [employer] 6 hours x5 days and 5 hours x2 days) History of Recent Travel: No Home Medications - Allergies Allergies/Adverse Reactions: Allergies Allergy/AdvReac Type Severity Reaction Status Date / Time carbidopa [From Sinemet] AdvReac Verified 11/23/19 15:47 levodopa [From Sinemet] AdvReac Verified 11/23/19 15:47 - Home Medications Home Medications: Ambulatory Orders Levothyroxine [Synthroid -] 25 mcg PO DAILY 04/24/19 Aspirin 81 mg PO DAILY 04/25/19 Atorvastatin Ca [Lipitor] 20 mg PO HS 04/25/19 Bupropion HCl [Wellbutrin -] 150 mg PO DAILY 04/25/19 Furosemide 80 mg PO TID 04/25/19 Hydralazine HCl 50 mg PO TID 04/25/19 Labetalol HCl [Normodyne -] 200 mg PO TID 04/25/19 Lipase/Protease/Amylase [Creon Dr 36,000 Units Capsule] 1 each PO TID 04/25/19 Mirtazapine 30 mg PO HS 04/25/19 Nifedipine [Procardia Xl] 60 mg PO BID 04/25/19 Olmesartan Medoxomil [Benicar -] 40 mg PO DAILY 04/25/19 Potassium Chloride 20 meq PO DAILY 04/25/19 Diclofenac Sodium 75 mg PO DAILY 11/23/19 Dicyclomine HCl 10 mg PO DAILY 11/23/19 Memantine HCl/Donepezil HCl [Namzaric 14 mg-10 mg Capsule] 1 cap PO DAILY 11/23/19 traZODone HCL [Trazodone HCl] 50 mg PO HS 11/23/19 Family Medical History Family History: Unable to Obtain Review of Systems Unable to obtain ROS, reason: Clinical Condition Physical Examination Vital Signs: Vital Signs Temperature 98.2 F 11/23/19 16:28 Pulse Rate 51 L 11/23/19 18:00 Respiratory Rate 20 11/23/19 18:00 Blood Pressure 132/54 L 11/23/19 18:00 O2 Sat by Pulse Oximetry (%) 98 11/23/19 18:00 Constitutional: Yes: Anxious, Mild Distress, Other (Confused) Eyes: Yes: Conjunctiva Clear, PERRL HENT: Yes: Atraumatic, Normocephalic Neck: Yes: Supple, Trachea Midline Cardiovascular: Yes: Regular Rate and Rhythm, Murmur, S1, S2 Respiratory: Yes: Diminished, On Nasal O2, Rales Gastrointestinal: Yes: Soft, Hypoactive Bowel Sounds ...Rectal Exam: Yes: Deferred Renal/: Yes: Incontinence Breast(s): Yes: WNL Musculoskeletal: Yes: Joint Stiffness Extremities: Yes: WNL Edema: Yes Edema: LLE: 2+, RLE: 2+ Peripheral Pulses WNL: Yes Peripheral Pulses: Left Doralis Pedis: 1+, Right Dorsalis Pedis: 1+ Neurological: Yes: Alert, Confusion, Cran Nerves II-XII Intact ...Motor Strength: WNL Psychiatric: Yes: Alert Labs: CBC, BMP 11/23/19 16:45 11/23/19 16:45 Laboratory Results - last 24 hr 11/23/19 11/23/19 11/23/19 16:45 16:45 16:45 WBC 5.7 RBC 2.75 L Hgb 7.4 L Hct 22.3 L MCV 81.1 MCH 27.0 MCHC 33.3 RDW 17.8 H Plt Count 429 MPV 6.9 L D Absolute Neuts (auto) 4.6 Neutrophils % 81.0 Lymphocytes % 6.2 L D Monocytes % 9.3 Eosinophils % 2.7 Basophils % 0.8 Nucleated RBC % 0 PT with INR 12.80 INR 1.08 PTT (Actin FS) 32.1 D-Dimer Anticoagulation Therapy Puncture Site Patient Temperature ABG pH ABG pCO2 ABG pO2 ABG HCO3 ABG O2 Sat (Measured) ABG O2 Content ABG Base Excess Jose Test Patient On Oxygen O2 Delivery Device Oxygen Flow Rate Vent Mode Vent Rate Mechanical Rate PEEP Pressure Support Vent Sodium 138 Potassium 3.6 Chloride 104 Carbon Dioxide 25 Anion Gap 10 BUN 36.1 H Creatinine 2.5 H Est GFR (CKD-EPI)AfAm 20.79 Est GFR (CKD-EPI)NonAf 17.93 Random Glucose 113 H Lactic Acid Calcium 8.3 L Magnesium 2.2 Ferritin 310.4 Total Bilirubin 0.4 AST 10 L ALT 9 L Alkaline Phosphatase 99 LD Total 182 Troponin I 0.02 C-Reactive Protein 0.6 H Total Protein 5.7 L Albumin 2.8 L Urine Color Urine Appearance Urine pH Ur Specific [place] Urine Protein Urine Glucose (UA) Urine Ketones Urine Blood Urine Nitrite Urine Bilirubin Urine Urobilinogen Ur Leukocyte Esterase Urine WBC (Auto) Urine RBC (Auto) Urine Casts (Auto) U Epithel Cells (Auto) Urine Bacteria (Auto) Blood Type Antibody Screen 11/23/19 11/23/19 11/23/19 16:45 16:45 16:45 WBC RBC Hgb Hct MCV MCH MCHC RDW Plt Count MPV Absolute Neuts (auto) Neutrophils % Lymphocytes % Monocytes % Eosinophils % Basophils % Nucleated RBC % PT with INR INR PTT (Actin FS) D-Dimer 728 H Anticoagulation Therapy Puncture Site Patient Temperature ABG pH ABG pCO2 ABG pO2 ABG HCO3 ABG O2 Sat (Measured) ABG O2 Content ABG Base Excess Jose Test Patient On Oxygen O2 Delivery Device Oxygen Flow Rate Vent Mode Vent Rate Mechanical Rate PEEP Pressure Support Vent Sodium Potassium Chloride Carbon Dioxide Anion Gap BUN Creatinine Est GFR (CKD-EPI)AfAm Est GFR (CKD-EPI)NonAf Random Glucose Lactic Acid 1.0 Calcium Magnesium Ferritin Total Bilirubin AST ALT Alkaline Phosphatase LD Total Troponin I C-Reactive Protein Total Protein Albumin Urine Color Urine Appearance Urine pH Ur Specific [place] Urine Protein Urine Glucose (UA) Urine Ketones Urine Blood Urine Nitrite Urine Bilirubin Urine Urobilinogen Ur Leukocyte Esterase Urine WBC (Auto) Urine RBC (Auto) Urine Casts (Auto) U Epithel Cells (Auto) Urine Bacteria (Auto) Blood Type A POSITIVE Antibody Screen Negative 11/23/19 11/23/19 17:25 21:35 WBC RBC Hgb Hct MCV MCH MCHC RDW Plt Count MPV Absolute Neuts (auto) Neutrophils % Lymphocytes % Monocytes % Eosinophils % Basophils % Nucleated RBC % PT with INR INR PTT (Actin FS) D-Dimer Anticoagulation Therapy No Result Required. Puncture Site Right radial Patient Temperature No Result Required. ABG pH 7.337 L ABG pCO2 41.00 ABG pO2 87.5 ABG HCO3 21.5 L ABG O2 Sat (Measured) 96.2 ABG O2 Content No Result Required. ABG Base Excess -4.1 L Jsoe Test Positive Patient On Oxygen No Result Required. O2 Delivery Device No Result Required. Oxygen Flow Rate No Result Required. Vent Mode No Result Required. Vent Rate No Result Required. Mechanical Rate No Result Required. PEEP No Result Required. Pressure Support Vent No Result Required. Sodium Potassium Chloride Carbon Dioxide Anion Gap BUN Creatinine Est GFR (CKD-EPI)AfAm Est GFR (CKD-EPI)NonAf Random Glucose Lactic Acid Calcium Magnesium Ferritin Total Bilirubin AST ALT Alkaline Phosphatase LD Total Troponin I C-Reactive Protein Total Protein Albumin Urine Color Yellow Urine Appearance Cloudy Urine pH 5.0 Ur Specific [place] 1.011 Urine Protein 2+ H Urine Glucose (UA) Negative Urine Ketones Negative Urine Blood Negative Urine Nitrite Negative Urine Bilirubin Negative Urine Urobilinogen 0.2 Ur Leukocyte Esterase 3+ H Urine WBC (Auto) 1288 Urine RBC (Auto) 12 Urine Casts (Auto) 1 U Epithel Cells (Auto) 3 Urine Bacteria (Auto) >9,000 Blood Type Antibody Screen Imaging - Results Chest X-ray: Report Reviewed, Image Reviewed Cat Scan: Report Reviewed, Image Reviewed EKG: Image Reviewed Problem List - Problems (1) Sepsis Assessment/Plan: Will treat for UTI vs Pneumonitis Sepsis Criteria Met: T 99.9, Spo2 92%, BUN 36 qSOFA 1 UA- +2protein, +3 leukocyte esterase, 1288 WBC, > 9000 Bacteria Urine Culture-pending Blood Cultures-pending Chest Xray image- pulm vasc congestion, interstitial markings Chest CT image, report- pulm vasc congestion, bilateral pleural effusions, bibasilar compressive atelectasis, small- moderate pericardial effusion. stable 1cm left upper lobe subplueral pulmonary nodule Azithromycin, Ceftriaxone given in ED, will continue Appreciate ID consult Monitor CBC, CMP Monitor vitals Maintain MAP>65 O2 Code(s): A41.9 - SEPSIS, UNSPECIFIED ORGANISM (2) Suspected COVID-19 virus infection Assessment/Plan: SMART-STICK FEEDER 3, mod risk COVID PCR- pending Isolation Precautions Chest Xray-reviewed Chest CT-reviewed Appreciate Pulmonology consult Appreciate ID consult Continue Azithromycin, Ceftriaxone Check CBC, CMP, Mg, CRP, LDH, dDimer, Ferritin O2 Albuterol MDI Code(s): Z20.828 - CONTACT W AND EXPOSURE TO OTH VIRAL COMMUNICABLE DISEASES (3) Urinary tract infection Assessment/Plan: Urine Culture-pending Continue Ceftriaxone Monitor CBC Monitor vitals Code(s): N39.0 - URINARY TRACT INFECTION, SITE NOT SPECIFIED Qualifiers: Urinary tract infection type: site unspecified (4) Elevated troponin Assessment/Plan: Likely secondary to Demand Ischemia vs Sepsis Cardiac monitoring Serial Enzymes Appreciate Cardiology consult EKG- reviewed Code(s): R74.8 - ABNORMAL LEVELS OF OTHER SERUM ENZYMES (5) Acute kidney injury superimposed on chronic kidney disease Assessment/Plan: Cr 2.5 (Baseline 1.3- 2.4) Will avoid IVF secondary to pulm vascular congestion noted on CXR Appreciate Nephrology Consult Monitor CMP Monitor vitals Code(s): N17.9 - ACUTE KIDNEY FAILURE, UNSPECIFIED; N18.9 - CHRONIC KIDNEY DISEASE, UNSPECIFIED (6) Abdominal pain Assessment/Plan: CTAP- reviewed Monitor CBC, CMP Appreciate GI consult NPO for now Ofirmev prn Code(s): R10.9 - UNSPECIFIED ABDOMINAL PAIN Qualifiers: Abdominal location: generalized Qualified Code(s): R10.84 - Generalized abdominal pain (7) Anemia Assessment/Plan: Likely secondary to CKD vs GIB Will transfuse if Hgb < 7.0 Ferritin 310 Stool Occult Consider Hematology consult Fe, TIBC-pending Monitor CBC Monitor vitals Code(s): D64.9 - ANEMIA, UNSPECIFIED (8) CHF (congestive heart failure) Assessment/Plan: hx pEF 60-65% Chest Xray- pulm vasc congestion Will hold diuretics secondary to JASPER Appreciate Cardiology consult Strict INOs Daily weight O2 Continue cardiac monitoring EKG reviewed Code(s): I50.9 - HEART FAILURE, UNSPECIFIED Qualifiers: (9) Dementia Assessment/Plan: Continue current med Fall Precautions Code(s): F03.90 - UNSPECIFIED DEMENTIA WITHOUT BEHAVIORAL DISTURBANCE (10) Diabetes Assessment/Plan: stable BGMs ISS when diet resumed Code(s): E11.9 - TYPE 2 DIABETES MELLITUS WITHOUT COMPLICATIONS (11) HTN (hypertension) Assessment/Plan: Monitor BP Will hold current meds for now secondary to bradycardia, reassess tomorrow by PMD Monitor renal function Code(s): I10 - ESSENTIAL (PRIMARY) HYPERTENSION (12) HLD (hyperlipidemia) Assessment/Plan: stable Continue Lipitor Monitor LFTs Code(s): E78.5 - HYPERLIPIDEMIA, UNSPECIFIED (13) GERD (gastroesophageal reflux disease) Assessment/Plan: stable Continue PPI Code(s): K21.9 - GASTRO-ESOPHAGEAL REFLUX DISEASE WITHOUT ESOPHAGITIS Assessment/Plan This is a 79 y/o female with a significant PMHx of Dementia,Parkinsin's Disease, HTN, CHF, DM, CKD, Diveticulosis. Admitted to Telemetry for Acute Respiratory Failure with Hypoxia, Sepsis, UTI, Acute on Chronic Kidney Disease, Anemia, Abdominal Pain for further evaluation of their emergent condition. Plan: See Problem List FEN Fluid Restriction 1L Replete lytes prn NPO DVT ppx OOB SCDs Hold AC 2/2 Anemia Dispo: Requires Inpatient Care Visit type - Medication Review Med list reviewed for High Risk Meds patients 65 and older: Yes - Emergency Visit Emergency Visit: Yes ED Registration Date: 11/23/19 Care time: The patient presented to the Emergency Department on the above date and was hospitalized for further evaluation of their emergent condition. - New Patient This patient is new to me today: Yes Date on this admission: 11/23/19 - Critical Care Critical Care patient: No
[2019-11-23 21:04] LABS: MAGNESIUM 2.2 mg/dL (1.8-2.4)
[2019-11-23 21:44] LABS: ARTERIAL BLD GAS O2 SATURATION 96.2 mmHg (95-98); ARTERIAL BLOOD GAS BASE EXCESS -4.1 mmol/L (-2-2); ARTERIAL BLOOD GAS PO2 87.5 mmHg (80-100); ARTERIAL BLOOD GAS pH 7.337 (7.350-7.450)
[2019-11-23 21:45] LABS: ALLENS TEST POSITIVE
[2019-11-24] MEDS ORDERED: traZODone HCL 50 MG TABLET (FP) PO ONE (00:20)
[2019-11-24] MEDS ORDERED: ACETAMINOPHEN 325 MG TABLET (FP) PO ONE (01:09)
[2019-11-24] MEDS: LEVOTHYROXINE NA 25 MCG TABLET (FP) PO SCH (06:03)
--- NOTE | 2019-11-24 07:25 | PN ---
Progress Note (short form) - Note Progress Note: PULMONARY CONSULTATION DICTATED 11/24/19 IMP ACUTE HYPOXEMIC RESPIRATORY FAILURE ACUTE ON CHRONIC DIASTOLIC HF ABDOMINAL PAIN HTN ACUTE ON CHRONIC KIDNEY DISEASE PARKINSONS DEMENTIA DONNA NODULE ANEMIA PULMONARY HTN PERICARDIAL EFFUSION PLAN SUPPLEMENTAL O2 INHALED BRONCHODILATORS LASIX ABX MONITOR LYTES,RENAL FUNCTION TREND H+H NORMAL TRANSFUSION THRESHOLD F/U CHEST X-RAYS F/U ECHO MONITOR PERICARDIAL EFFUSION CONSIDER THORACIC SURGERY EVALUATION DR CAMPA Problem List - Problems (1) Acute kidney injury superimposed on chronic kidney disease Code(s): N17.9 - ACUTE KIDNEY FAILURE, UNSPECIFIED; N18.9 - CHRONIC KIDNEY DISEASE, UNSPECIFIED (2) Urinary tract infection Code(s): N39.0 - URINARY TRACT INFECTION, SITE NOT SPECIFIED Qualifiers: Urinary tract infection type: site unspecified (3) Abdominal pain Code(s): R10.9 - UNSPECIFIED ABDOMINAL PAIN Qualifiers: Abdominal location: generalized Qualified Code(s): R10.84 - Generalized abdominal pain (4) Abnormal CXR Code(s): R93.89 - ABNORMAL FINDINGS ON DX IMAGING OF OTH BODY STRUCTURES (5) Acute on chronic diastolic (congestive) heart failure Code(s): I50.33 - ACUTE ON CHRONIC DIASTOLIC (CONGESTIVE) HEART FAILURE (6) Anemia Code(s): D64.9 - ANEMIA, UNSPECIFIED (7) CHF exacerbation Code(s): I50.9 - HEART FAILURE, UNSPECIFIED (8) Dementia Code(s): F03.90 - UNSPECIFIED DEMENTIA WITHOUT BEHAVIORAL DISTURBANCE (9) Diabetes Code(s): E11.9 - TYPE 2 DIABETES MELLITUS WITHOUT COMPLICATIONS (10) HLD (hyperlipidemia) Code(s): E78.5 - HYPERLIPIDEMIA, UNSPECIFIED (11) HTN (hypertension) Code(s): I10 - ESSENTIAL (PRIMARY) HYPERTENSION (12) Pleural effusion Code(s): J90 - PLEURAL EFFUSION, NOT ELSEWHERE CLASSIFIED (13) Pulmonary HTN Code(s): I27.20 - PULMONARY HYPERTENSION, UNSPECIFIED (14) SOB (shortness of breath) Code(s): R06.02 - SHORTNESS OF BREATH
--- NOTE | 2019-11-24 07:54 | PN ---
Progress Note, Physician History of Present Illness: 79 y/o female with a significant PMHx of Dementia,Parkinsin's Disease, HTN, CHF, DM, CKD, Diveticulosis. Who presents to the ED with her daughter for abdominal pain x 7 days. Patient was seen by her PMD for dysuria, placed on Cipro for UTI and Iron pills for Anemia. Per the daughter the patient would not take the medications and has a poor appetite. She reorts the patient has O2 at home but does not use it. Per the daughter she denies patient having fever, chills, cough, SOB, CP, palpitations, N/V. No recent sick contacts or travel. - Current Medication List Current Medications: Active Medications Albuterol Sulfate (Ventolin Hfa Inhaler -) 2 puff IH Q6H PRN PRN Reason: SHORT OF BREATH/WHEEZING Atorvastatin Calcium (Lipitor -) 20 mg PO HS JOYCE Bupropion HCl (Wellbutrin Xl -) 150 mg PO DAILY [facility] Ceftriaxone Sodium 1 gm/ (Dextrose) 50 mls @ 100 mls/hr IVPB DAILY [facility]; Protocol Azithromycin (Zithromax 500mg Ivpb (Pre-Docked)) 500 mg in 250 mls @ 250 mls/hr IVPB DAILY [facility] Levothyroxine Sodium (Synthroid -) 25 mcg PO DAILY@0700 [facility] Last Admin: 11/24/19 06:03 Dose: 25 mcg Documented by: Mirtazapine (Remeron -) 30 mg PO HS JOYCE Trazodone HCl (Desyrel -) 50 mg PO HS [facility] - Objective Vital Signs: Vital Signs Temperature 98.0 F 11/24/19 05:55 Pulse Rate 64 11/24/19 05:55 Respiratory Rate 18 11/24/19 05:55 Blood Pressure 163/67 11/24/19 05:55 O2 Sat by Pulse Oximetry (%) 95 11/23/19 23:00 Cardiovascular: Yes: S1, S2 Respiratory: Yes: Regular, CTA Bilaterally Gastrointestinal: Yes: Normal Bowel Sounds, Soft. No: Tenderness Edema: No Neurological: Yes: Alert, Oriented Labs: CBC, BMP 11/23/19 16:45 11/23/19 16:45 INR, PTT INR 1.08 (0.83-1.09) 11/23/19 16:45 Problem List - Problems (1) Acute kidney injury superimposed on chronic kidney disease Assessment/Plan: hold diuretics gentle hydration while npo renal consult Code(s): N17.9 - ACUTE KIDNEY FAILURE, UNSPECIFIED; N18.9 - CHRONIC KIDNEY DISEASE, UNSPECIFIED (2) Abdominal pain Assessment/Plan: ct noted ppi gi consult Code(s): R10.9 - UNSPECIFIED ABDOMINAL PAIN Qualifiers: Abdominal location: generalized Qualified Code(s): R10.84 - Generalized abdominal pain (3) Anemia Assessment/Plan: drop from baseline follow trends ppi gi consult Code(s): D64.9 - ANEMIA, UNSPECIFIED (4) CHF (congestive heart failure) Assessment/Plan: holding diuretics--may need prn await cardio and renal opinion Code(s): I50.9 - HEART FAILURE, UNSPECIFIED Qualifiers: (5) Diabetes Assessment/Plan: bgm with ss Code(s): E11.9 - TYPE 2 DIABETES MELLITUS WITHOUT COMPLICATIONS (6) HTN (hypertension) Assessment/Plan: Vital Signs Period Temp Pulse Resp BP Sys/East Pulse Ox Last 24 Hr 97.5 F-99.9 F 51-66 18-20 129-168/53-91 92-100 Code(s): I10 - ESSENTIAL (PRIMARY) HYPERTENSION
[2019-11-24] MEDS ORDERED: D5-1/2NS+20 MEQ KCL - 20 MEQ/1,000 ML INFUS.BAG IV SCH (08:00)
[2019-11-24 09:52] LABS: BASO % 0.7 % (0-2.0); EOS % 3.2 % (0-4.5); HEMOGLOBIN 7.8 GM/dL (10.7-15.3); LYMPH % 5.3 % (8-40); MCH 26.9 pg (25.7-33.7); MCHC 32.7 g/dl (32.0-36.0); MEAN CELL VOLUME 82.2 fl (80-96); MEAN PLT VOLUME 6.7 fl (7.5-11.1); MONO % 8.3 % (3.8-10.2); NEUT % 82.5 % (42.8-82.8); PLATELET COUNT 449 K/MM3 (134-434); RBC 2.92 M/mm3 (3.60-5.2); RDW 17.9 % (11.6-15.6); WHITE BLOOD COUNT 7.1 K/mm3 (4.0-10.0)
[2019-11-24] MEDS ORDERED: PANTOPRAZOLE SODIUM 40 MG VIAL IVPUSH SCH (10:00)
--- NOTE | 2019-11-24 10:02 | CON.CARD ---
Consult Consult Specialty:: Cardiology Referred by:: Malorie Reason for Consultation:: Abdominal pain, CHF - History of Present Illness Chief Complaint: Abdominal pain, shortness of breath History of Present Illness: The patient is a 79-year-old female with dementia, diabetes, hypertension, hyperlipidemia, Parkinson disease, diverticulosis, lower GI bleed, diastolic heart failure, frequent admissions for abdominal pain and fecal impaction and pleural effusions, normal left ventricular systolic function on echo 05/03/2018 without significant valvular abnormalities, bradycardia on labetalol (discontinued), now presenting with abdominal pain and shortness of breath. Fluid overloaded. The patient was in mild respiratory distress at the time of my exam. No chest pains. No palpitations. Telemetry showed sinus rhythm. No clinically important arrhythmias documented at this point. 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 TURNER: Yes: Dementia, Peripheral Neuropathy, Parkinson's Cardio/Vascular: Yes: CHF, HTN, Hyperlipdemia Gastrointestinal: Yes: Diverticulosis ...: No Psych: Yes: Anxiety Musculoskeletal: Yes: Osteoarthritis Endocrine: Yes: Diabetes Mellitus - Past Surgical History Past Surgical History: Yes: Appendectomy, Cholecystectomy, - Alcohol/Substance Use Hx Alcohol Use: No - Smoking History Smoking history: Never smoked Have you smoked in the past 12 months: No Aproximately how many cigarettes per day: 0 - Social History Usual Living Arrangement: Alone 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 (also has RIVET CATCHER 6 hours x5 days and 5 hours x2 days) History of Recent Travel: No Home Medications - Allergies Allergies/Adverse Reactions: Allergies Allergy/AdvReac Type Severity Reaction Status Date / Time carbidopa [From Sinemet] AdvReac Verified 11/23/19 15:47 levodopa [From Sinemet] AdvReac Verified 11/23/19 15:47 - Home Medications Home Medications: Ambulatory Orders Levothyroxine [Synthroid -] 25 mcg PO DAILY 04/24/19 Aspirin 81 mg PO DAILY 04/25/19 Atorvastatin Ca [Lipitor] 20 mg PO HS 04/25/19 Bupropion HCl [Wellbutrin -] 150 mg PO DAILY 04/25/19 Furosemide 80 mg PO TID 04/25/19 Hydralazine HCl 50 mg PO TID 04/25/19 Labetalol HCl [Normodyne -] 200 mg PO TID 04/25/19 Lipase/Protease/Amylase [Creon Dr 36,000 Units Capsule] 1 each PO TID 04/25/19 Mirtazapine 30 mg PO HS 04/25/19 Nifedipine [Procardia Xl] 60 mg PO BID 04/25/19 Olmesartan Medoxomil [Benicar -] 40 mg PO DAILY 04/25/19 Potassium Chloride 20 meq PO DAILY 04/25/19 Diclofenac Sodium 75 mg PO DAILY 11/23/19 Dicyclomine HCl 10 mg PO DAILY 11/23/19 Memantine HCl/Donepezil HCl [Namzaric 14 mg-10 mg Capsule] 1 cap PO DAILY 11/23/19 traZODone HCL [Trazodone HCl] 50 mg PO HS 11/23/19 Review of Systems - Review of Systems Constitutional: reports: Lethargy, Weakness Eyes: reports: No Symptoms HENT: reports: No Symptoms Neck: reports: No Symptoms Cardiovascular: reports: Shortness of Breath Respiratory: reports: SOB Gastrointestinal: reports: Abdominal Pain Genitourinary: reports: No Symptoms Breasts: reports: No Symptoms Reported Musculoskeletal: reports: Joint Pain, Muscle Pain Integumentary: reports: No Symptoms Neurological: reports: No Symptoms Endocrine: reports: No Symptoms Hematology/Lymphatic: reports: No Symptoms Psychiatric: reports: No Symptoms Vital Signs: Vital Signs Temperature 97.8 F 11/24/19 08:54 Pulse Rate 66 11/24/19 08:54 Respiratory Rate 18 11/24/19 08:54 Blood Pressure 156/91 11/24/19 08:54 O2 Sat by Pulse Oximetry (%) 97 11/24/19 08:54 Constitutional: Yes: Well Nourished, Mild Distress Eyes: Yes: WNL, Conjunctiva Clear, EOM Intact HENT: Yes: WNL, Atraumatic, Normocephalic Neck: Yes: WNL, Supple, Trachea Midline Respiratory: Yes: Diminished, Rales, SOB Gastrointestinal: Yes: WNL, Normal Bowel Sounds, Soft Renal/: Yes: WNL Cardiovascular: Yes: Regular Rate and Rhythm JVD: No Carotid Bruit: No PMI: Non-Displaced Heart Sounds: Yes: S1, S2 Murmur: Yes: Systolic Murmur, Grade 2 Musculoskeletal: Yes: Joint Stiffness Edema: LLE: 1+, RLE: 1+ Peripheral Pulses: 1+ Left Doralis Pedis, 1+ Right Dorsalis Pedis Integumentary: Yes: WNL Neurological: Yes: Alert Psychiatric: Yes: WNL, Alert - Other Data Labs, Other Data: CBC, BMP 11/24/19 09:30 INR, PTT INR 1.08 (0.83-1.09) 11/23/19 16:45 Troponin, BNP 11/23/19 11/24/19 16:45 00:56 Troponin I 0.02 < 0.02 Troponin, BNP 11/23/19 11/24/19 16:45 00:56 Troponin I 0.02 < 0.02 Assessment/Plan The patient is a 79-year-old female with dementia, diabetes, hypertension, hyperlipidemia, Parkinson disease, diverticulosis, lower GI bleed, diastolic heart failure, frequent admissions for abdominal pain and fecal impaction and pleural effusions, normal left ventricular systolic function on echo 05/03/2018 without significant valvular abnormalities, bradycardia on labetalol (discontinued), now presenting with abdominal pain and shortness of breath. Fluid overloaded. The patient was in mild respiratory distress at the time of my exam. No chest pains. No palpitations. Telemetry showed sinus rhythm. No clinically important arrhythmias documented at this point. There is no evidence of ischemia nor acute coronary syndrome. Acute on chronic diastolic heart failure and peripheral edema. Start Lasix 40 mg IV twice daily. Increase hydralazine to 100 mg 3 times a day. Low-sodium diet. Fluid restrictions. Please repeat the echocardiogram to rule out pericardial effusion as suggested by the CT. Hemodynamically stable. We will follow.
[2019-11-24] MEDS ORDERED: DEXTROSE 5%-WATER - 50 ML IVPB ONE (10:06)
[2019-11-24] MEDS ORDERED: cefTRIAXone SODIUM 1 GM VIAL ONE (10:06)
[2019-11-24] MEDS: ALBUTEROL SO4 HFA INHALER IH PRN ×2 (10:09→22:00)
[2019-11-24] MEDS: CEFTRIAXONE 1 GM in DEXTROSE 5%-WATER - 50 ML IVPB SCH (10:09)
[2019-11-24 10:22] LABS: BILIRUBIN,TOTAL 0.4 mg/dL (0.2-1); BLOOD UREA NITROGEN 36.6 mg/dL (7-18); CALCIUM 8.3 mg/dL (8.5-10.1); CREATININE 2.3 mg/dL (0.55-1.3); MAGNESIUM 2.1 mg/dL (1.8-2.4); POTASSIUM 3.4 mmol/L (3.5-5.1)
--- NOTE | 2019-11-24 10:45 | EKG ---
Test Reason : Blood Pressure : / mmHG Vent. Rate : 054 BPM Atrial Rate : 054 BPM P-R Int : 000 ms QRS Dur : 112 ms QT Int : 460 ms P-R-T Axes : 000 -44 038 degrees QTc Int : 436 ms NORMAL SINUS RHYTHM WITH 1ST DEGREE A-V BLOCK LEFT AXIS DEVIATION NONSPECIFIC INTRAVENTRICULAR CONDUCTION DEFECT NONSPECIFIC T WAVE ABNORMALITY ABNORMAL ECG Confirmed by BRANDIN MOYA MD ([id number]) on 11/24/2019 10:45:17 AM Referred By: Confirmed By:BRANDIN MOYA MD
--- NOTE | 2019-11-24 10:53 | EKG ---
Test Reason : Blood Pressure : / mmHG Vent. Rate : 051 BPM Atrial Rate : 014 BPM P-R Int : 000 ms QRS Dur : 110 ms QT Int : 462 ms P-R-T Axes : 000 -60 009 degrees QTc Int : 425 ms POOR DATA QUALITY, INTERPRETATION MAY BE ADVERSELY AFFECTED MARKED SINUS BRADYCARDIA VS JUNCTIONAL RHYTHM INCOMPLETE RIGHT BUNDLE BRANCH BLOCK LEFT ANTERIOR FASCICULAR BLOCK ABNORMAL ECG Confirmed by BRANDIN MOYA MD ([id number]) on 11/24/2019 10:53:07 AM Referred By: Confirmed By:BRANDIN MOYA MD
--- NOTE | 2019-11-24 11:47 | CONSULT ---
Consult Consult Specialty:: Nephrology Reason for Consultation:: JASPER - History of Present Illness Chief Complaint: abdominal pain History of Present Illness: Pt is a 79 year old female with pmhx of ckd, dementia, parkinsons, htn, chf, dm, and diverticulosis who presents to the ER wtih adominal pain. 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 She was recently started on cipro for UTI. She was found to have pleural effusion and a pericardial effusion on CT scan. She complains of shortness of breath. She did have chest pain yesterday. She denies fevers or chills. She denies nsaid use. She does not know if she was taking her diuretics. 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: Dementia, Peripheral Neuropathy, Parkinson's Cardio/Vascular: Yes: CHF, HTN, Hyperlipdemia Gastrointestinal: Yes: Diverticulosis ...: No Psych: Yes: Anxiety Musculoskeletal: Yes: Osteoarthritis Endocrine: Yes: Diabetes Mellitus - Past Surgical History Past Surgical History: Yes: Appendectomy, Cholecystectomy, - Alcohol/Substance Use Hx Alcohol Use: No History of Substance Use: reports: None (unknown) - Smoking History Smoking history: Never smoked Have you smoked in the past 12 months: No Aproximately how many cigarettes per day: 0 - Social History Usual Living Arrangement: Alone 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 (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 and 5 hours x2 days) History of Recent Travel: No Home Medications - Allergies Allergies/Adverse Reactions: Allergies Allergy/AdvReac Type Severity Reaction Status Date / Time carbidopa [From Sinemet] AdvReac Verified 11/23/19 15:47 levodopa [From Sinemet] AdvReac Verified 11/23/19 15:47 - Home Medications Home Medications: Ambulatory Orders Levothyroxine [Synthroid -] 25 mcg PO DAILY 04/24/19 Aspirin 81 mg PO DAILY 04/25/19 Atorvastatin Ca [Lipitor] 20 mg PO HS 04/25/19 Bupropion HCl [Wellbutrin -] 150 mg PO DAILY 04/25/19 Furosemide 80 mg PO TID 04/25/19 Hydralazine HCl 50 mg PO TID 04/25/19 Labetalol HCl [Normodyne -] 200 mg PO TID 04/25/19 Lipase/Protease/Amylase [Elaine Sweeney 36,000 Units Capsule] 1 each PO TID 04/25/19 Mirtazapine 30 mg PO HS 04/25/19 Nifedipine [Procardia Xl] 60 mg PO BID 04/25/19 Olmesartan Medoxomil [Benicar -] 40 mg PO DAILY 04/25/19 Potassium Chloride 20 meq PO DAILY 04/25/19 Diclofenac Sodium 75 mg PO DAILY 11/23/19 Dicyclomine HCl 10 mg PO DAILY 11/23/19 Memantine HCl/Donepezil HCl [Namzaric 14 mg-10 mg Capsule] 1 cap PO DAILY 11/23/19 traZODone HCL [Trazodone HCl] 50 mg PO HS 11/23/19 Family Medical History Family History: Denies Review of Systems - Review of Systems Constitutional: reports: Loss of Appetite, Malaise, Weakness Eyes: reports: No Symptoms HENT: reports: No Symptoms Neck: reports: No Symptoms Cardiovascular: reports: Chest Pain, Edema, Shortness of Breath Respiratory: reports: SOB Gastrointestinal: reports: No Symptoms Genitourinary: reports: No Symptoms Musculoskeletal: reports: No Symptoms Integumentary: reports: No Symptoms Neurological: reports: No Symptoms Endocrine: reports: No Symptoms Hematology/Lymphatic: reports: No Symptoms Psychiatric: reports: No Symptoms Physical Exam Vital Signs: Vital Signs Temperature 97.8 F 11/24/19 08:54 Pulse Rate 66 11/24/19 08:54 Respiratory Rate 18 11/24/19 08:54 Blood Pressure 156/91 11/24/19 08:54 O2 Sat by Pulse Oximetry (%) 97 11/24/19 08:54 Constitutional: Yes: Calm Eyes: Yes: Conjunctiva Clear HENT: Yes: Atraumatic Cardiovascular: Yes: JVD, S1, S2 Respiratory: Yes: On Nasal O2, Rhonchi Gastrointestinal: Yes: Soft Renal/: Yes: Incontinence Musculoskeletal: Yes: Muscle Weakness Extremities: Yes: WNL Edema: Yes Edema: LLE: 1+, RLE: 1+ Integumentary: Yes: WNL Neurological: Yes: Confusion Psychiatric: Yes: Agitated Labs: CBC, BMP 11/24/19 09:30 11/24/19 09:30 Imaging - Results Cat Scan: Report Reviewed Problem List - Problems (1) JASPER (acute kidney injury) Code(s): N17.9 - ACUTE KIDNEY FAILURE, UNSPECIFIED (2) Acute kidney injury superimposed on chronic kidney disease Code(s): N17.9 - ACUTE KIDNEY FAILURE, UNSPECIFIED; N18.9 - CHRONIC KIDNEY DISEASE, UNSPECIFIED (3) CHF (congestive heart failure) Code(s): I50.9 - HEART FAILURE, UNSPECIFIED Qualifiers: (4) CHF exacerbation Code(s): I50.9 - HEART FAILURE, UNSPECIFIED (5) CKD (chronic kidney disease) Code(s): N18.9 - CHRONIC KIDNEY DISEASE, UNSPECIFIED (6) Dementia Code(s): F03.90 - UNSPECIFIED DEMENTIA WITHOUT BEHAVIORAL DISTURBANCE (7) Diverticulosis Code(s): K57.90 - DVRTCLOS OF INTEST, PART UNSP, W/O PERF OR ABSCESS W/O BLEED Assessment/Plan Current Medications Generic Name Dose Route Start Last Admin Trade Name Freq PRN Reason Stop Dose Admin Albuterol Sulfate 2 puff 11/23/19 20:02 11/24/19 10:09 Ventolin Hfa Inhaler - IH 2 puff Q6H PRN Administration SHORT OF BREATH/WHEEZING Atorvastatin Calcium 20 mg 11/24/19 22:00 Lipitor - PO HS JOYCE Bupropion HCl 150 mg 11/24/19 10:00 11/24/19 10:09 Wellbutrin Xl - PO 150 mg DAILY JOYCE Administration Hydralazine HCl 50 mg 11/24/19 14:00 Apresoline - PO TID JOYCE Ceftriaxone Sodium 1 gm/ 50 mls @ 100 mls/hr 11/24/19 10:00 11/24/19 10:09 Dextrose IVPB 100 mls/hr DAILY JOYCE Administration Protocol Azithromycin 500 mg in 250 mls @ 250 mls/hr 11/24/19 10:00 Zithromax 500mg Ivpb (Pre-Docked) IVPB DAILY JOYCE Potassium Chloride/Dextrose/Sod Cl 20 meq in 1,000 mls @ 75 mls/hr 11/24/19 08:00 11/24/19 09:48 D5-1/2ns+20 Meq Kcl - IV Not Given ASDIR JOYCE Insulin Aspart 1 vial 11/24/19 11:00 Novolog Vial Sliding Scale - SQ ACHS JOYCE Protocol Labetalol HCl 200 mg 11/24/19 14:00 Normodyne - PO TID JOYCE Levothyroxine Sodium 25 mcg 11/24/19 07:00 11/24/19 06:03 Synthroid - PO 25 mcg DAILY@0700 JOYCE Administration Mirtazapine 30 mg 11/24/19 22:00 Remeron - PO HS JOYCE Pantoprazole Sodium 40 mg 11/24/19 10:00 11/24/19 10:09 Protonix Iv IVPUSH 40 mg BID JOYCE Administration Trazodone HCl 50 mg 11/24/19 22:00 Desyrel - PO HS [facility] Impression 1. JASPER 2. CKD 3. HLD 4. diverticulosis 5. HTN 6. DM 7. proteinuria 8. hypoalbuminemia 9. UTI 10. pleural effusion 11. chf 12. pericardial effusion 13. fluid overload Impression - stop fluids - restart lasix - cardio eval - check echo - monitor vitals - monitor bp - pt with fluid overload - arb on hold for now - follow urine and blood cultures - cont to monitor volume status - replace potassium - check mag
[2019-11-24] MEDS ORDERED: POTASSIUM CHLORIDE ORAL LIQUID 20 MEQ/15 ML PO ONE (11:53)
[2019-11-24] MEDS: INSULIN SLIDING SCALE (NOVOLOG) 1 VIAL SQ SCH ×3 (11:59→21:17)
[2019-11-24] MEDS: AZITHROMYCIN IVPB 500 MG/250 ML BAG IVPB SCH (11:59)
--- NOTE | 2019-11-24 11:59 | CON.GI ---
Consult Consult Specialty:: GI: For Dr. Ibanez Referred by:: Dr. Ro Espana Reason for Consultation:: Abdominal pain - History of Present Illness Chief Complaint: Patent is a poor historian. Per the H&P: Admitted for evaluation of History of Present Illness: 79F admitted for evaluation of lower abdominal pain. patient also complains of chest pain and shortness of breath. Noted to have a + UA, being treated for UTI. Asked to evaluate abdominal pain. Pateint points towards her pelvis and lower abdomen when I asked what is bothering her. No overt rectal bleeding noted. No melena reported. Stool for C. Diff was collected 05/11 revealing Antigen positive, Toxin negative. Of noted, previous stool for C. Diff toxin and antigen 05/10 were both negative. No diarrhea reported during this admission. CT scan revealed bilateral pleural effusions, vascular congestions, small to moderate pericardial effusion, resolved right sided colonic edema (seen on a previous study.) Last evaluated by Dr. Ibanez 05/10. At that time, upper endoscopy was contemplated but Ms. Cole' poor cardiopulmonary status precluded this. She had a colonoscopy in 2018 revealing diverticulosis and was otherwise unrevealing. Has been guaiac negative Apr, May, September of 2018. 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, Peripheral Neuropathy, Parkinson's Cardio/Vascular: Yes: CHF, HTN, Hyperlipdemia Gastrointestinal: Yes: Diverticulosis ...: No Psych: Yes: Anxiety Musculoskeletal: Yes: Osteoarthritis Endocrine: Yes: Diabetes Mellitus - Past Surgical History Past Surgical History: Yes: Appendectomy, Cholecystectomy, Additional Surgical History: Skin graft to lower abdomen: complications from abdominoplasty performed in the [place] several years ago - Alcohol/Substance Use Hx Alcohol Use: No History of Substance Use: reports: None (unknown) - Smoking History Smoking history: Never smoked Have you smoked in the past 12 months: No Aproximately how many cigarettes per day: 0 - Social History Usual Living Arrangement: Alone 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 (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) History of Recent Travel: No Home Medications - Allergies Allergies/Adverse Reactions: Allergies Allergy/AdvReac Type Severity Reaction Status Date / Time carbidopa [From Sinemet] AdvReac Verified 11/23/19 15:47 levodopa [From Sinemet] AdvReac Verified 11/23/19 15:47 - Home Medications Home Medications: Ambulatory Orders Levothyroxine [Synthroid -] 25 mcg PO DAILY 04/24/19 Aspirin 81 mg PO DAILY 04/25/19 Atorvastatin Ca [Lipitor] 20 mg PO HS 04/25/19 Bupropion HCl [Wellbutrin -] 150 mg PO DAILY 04/25/19 Furosemide 80 mg PO TID 04/25/19 Hydralazine HCl 50 mg PO TID 04/25/19 Labetalol HCl [Normodyne -] 200 mg PO TID 04/25/19 Lipase/Protease/Amylase [Elaine Dr 36,000 Units Capsule] 1 each PO TID 04/25/19 Mirtazapine 30 mg PO HS 04/25/19 Nifedipine [Procardia Xl] 60 mg PO BID 04/25/19 Olmesartan Medoxomil [Benicar -] 40 mg PO DAILY 04/25/19 Potassium Chloride 20 meq PO DAILY 04/25/19 Diclofenac Sodium 75 mg PO DAILY 11/23/19 Dicyclomine HCl 10 mg PO DAILY 11/23/19 Memantine HCl/Donepezil HCl [Namzaric 14 mg-10 mg Capsule] 1 cap PO DAILY 11/23/19 traZODone HCL [Trazodone HCl] 50 mg PO HS 11/23/19 Family Medical History Family History: Unable to Obtain (poor historian), Denies Review of Systems - Review of Systems Cardiovascular: reports: Chest Pain Respiratory: reports: SOB Gastrointestinal: reports: Abdominal Pain. denies: Rectal Bleeding Musculoskeletal: reports: Extremity Pain (bilateral legs) Physical Exam-GI Vital Signs: Vital Signs Rectal TEMP on exam @ 1200: 98.8 Temperature 97.8 F 11/24/19 08:54 Pulse Rate 66 11/24/19 08:54 Respiratory Rate 18 11/24/19 08:54 Blood Pressure 156/91 11/24/19 08:54 O2 Sat by Pulse Oximetry (%) 97 11/24/19 08:54 Constitutional: Yes: Mild Distress Eyes: No: Sclera Icterus Cardiovascular: Yes: Regular Rate and Rhythm (obscured as Ms. Cole would periodically shout out do to her multiple pain complaints) Respiratory: Yes: Diminished (at bases bilaterally, poor insp effort), Rhonchi (bilaterally) Gastrointestinal Inspection: Yes: Scars (RUQ scar, lower horizontal surgical scar, + graft site mid lower abdomen/pelvis) ...Auscultate: Yes: Normoactive Bowel Sounds ...Palpate: Yes: Firm/Rigid (abdominal wall somewhat taut), Soft, Tenderness (TTP lower abdomen and pelvis) ...Percussion: No: Tympanitic ...Rectal Exam: Yes: Other (No external lesions, no masses, iron strained stool, guaiac negative) Extremities: Yes: Other (left thigh: site of skin graft) Edema: Yes Edema: LUE: 1+, RUE: 2+, LLE: 1+, RLE: 2+ Neurological: Yes: Alert, Confusion Labs: CBC, BMP 11/24/19 09:30 11/24/19 09:30 INR, PTT INR 1.08 (0.83-1.09) 11/23/19 16:45 Hepatic Panel Total Bilirubin 0.4 mg/dL (0.2-1) 11/24/19 09:30 AST 15 U/L (15-37) 11/24/19 09:30 ALT 11 U/L (13-61) L 11/24/19 09:30 Alkaline Phosphatase 102 U/L (45-117) 11/24/19 09:30 Albumin 3.0 g/dl (3.4-5.0) L 11/24/19 09:30 Imaging - Results Cat Scan: Report Reviewed, Image Reviewed Problem List - Problems (1) Abdominal pain Assessment/Plan: Predominantly pelvic pain with mild tenderness upon palpation, however, pain upon palpation of multiple body parts including legs with the same response. Being treated for UTI Chest pain and CHF being evaluated by cardiology Evaluation of renal insufficiency per primary team No need for BID PPI. Changed to protonix 20mg once daily Hematology evaluation Advanced to clears When acute issues are resolved, endoscopic evaluation could be considered once medically optimized Code(s): R10.9 - UNSPECIFIED ABDOMINAL PAIN Qualifiers: Abdominal location: generalized Qualified Code(s): R10.84 - Generalized abdominal pain
--- NOTE | 2019-11-24 12:28 | PN ---
Progress Note (short form) - Note Progress Note: ID consult dictated imp/reccd 79 yo female admitted from home with abdominal pain prescribed cipro for UTI and Fe for anemia- uanble to tolerate, brought to ED with persistent abdominal pain straight cath UA with pyuria she is complaining of sob and chest discomfort- seen by cardiology who feels she is in CHF ct scans chest/abd/pelvis - bilateral pleural effusions, small pericardial effusion, abd no acute findings pelvic pain- probable UTI abnl chest ct-CHF/less likely pneumonia asymmetric leg edema- duplex legs - sandi/ckd continue ceftriaxone/zith check legionella urinary antigen f/u cultures Problem List - Problems (1) Urinary tract infection Code(s): N39.0 - URINARY TRACT INFECTION, SITE NOT SPECIFIED Qualifiers: Urinary tract infection type: site unspecified (2) SOB (shortness of breath) Code(s): R06.02 - SHORTNESS OF BREATH (3) Acute kidney injury superimposed on CKD Code(s): N17.9 - ACUTE KIDNEY FAILURE, UNSPECIFIED; N18.9 - CHRONIC KIDNEY DISEASE, UNSPECIFIED
--- NOTE | 2019-11-24 12:46 | EKG ---
Test Reason : Blood Pressure : / mmHG Vent. Rate : 065 BPM Atrial Rate : 065 BPM P-R Int : 388 ms QRS Dur : 112 ms QT Int : 420 ms P-R-T Axes : 100 -44 080 degrees QTc Int : 436 ms SINUS RHYTHM WITH 1ST DEGREE A-V BLOCK LEFT AXIS DEVIATION NONSPECIFIC INTRAVENTRICULAR CONDUCTION DEFECT ABNORMAL ECG Confirmed by BRANDIN MOYA MD ([id number]) on 11/24/2019 12:46:28 PM Referred By: Confirmed By:BRANDIN MOYA MD
[2019-11-24] MEDS: KCL 10 MEQ IVPB 10 MEQ/100 ML INFUS.BAG IVPB SCH ×3 (12:54→15:23)
[2019-11-24] MEDS: FUROSEMIDE 40 MG/4 ML INJECTABLE VIAL IVPUSH SCH ×2 (12:54→14:16)
[2019-11-24 13:09] LABS: N-TERMINAL BNP 16614.2 pg/ml (5-450)
--- NOTE | 2019-11-24 13:37 | CONS ---
DATE OF CONSULTATION: DATE OF DICTATION: 11/24/2019 CHIEF COMPLAINT/HISTORY OF PRESENT ILLNESS: This is a 79-year-old female admitted from home with abdominal pain. She saw her PMD recently and was prescribed Cipro for UTI and iron for anemia. She was unable to tolerate it, and she was brought to the ER for persistent abdominal pain. She is currently quite uncomfortable, complains of pelvic pain, chest pain, and some shortness of breath. She was seen by Cardiology, who feel that she is in heart failure. Per the daughter who was with the patient in the ER, there is no history of fever, chills, cough, shortness of breath at home. She has had no nausea or vomiting. There have been no recent sick contacts or travel. PAST MEDICAL HISTORY: Notable for dementia, peripheral neuropathy, Parkinson's disease, heart failure, hypertension, hyperlipidemia, diverticulosis, anxiety, osteoarthritis, and diabetes. PAST SURGICAL HISTORY: Notable for appendectomy, cholecystectomy, . She has had an abdominoplasty done 15 years ago, and she has a skin graft site on her left thigh. SOCIAL HISTORY: She lives alone. 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 No history of cigarette or substance use. ALLERGIES: She is allergic to CARBIDOPA/LEVODOPA. MEDICATIONS: Current medications include diclofenac, memantine, donepezil, dicyclomine, trazodone, Wellbutrin, Lipitor, aspirin, Synthroid, Normodyne, hydralazine, furosemide, Benicar, Procardia, mirtazapine, Pancrease, and potassium chloride. REVIEW OF SYSTEMS: As per HPI. PHYSICAL EXAMINATION: Vital Signs: She is afebrile. Temperature is 97.8. Pulse is 66, blood pressure 156/91. Respiratory rate is 18. She is saturating 97% on 2 L. HEENT: She is normocephalic. Her eyes are anicteric. Neck: Supple. Lungs: Have diminished breath sounds at both bases. Heart: Regular rate and rhythm. Abdomen: She has some midepigastric discomfort. On her pelvis she has a scar that is the site of her abdominoplasty. She has some pelvic discomfort as well, suprapubic. Extremities: She has bilateral edema. The right leg is larger than the left. LABORATORY: White count is 7.1, hemoglobin 7.8. Platelets are 449. Her BUN is 36 and creatinine 2.3, on admission were 36 and 2.5. Urinalysis has 3+ leukocyte esterase, 1288 white cells. This was a straight catheterization specimen. Cultures are pending. She had a CAT scan of her chest, abdomen, and pelvis that was done in the emergency room, notable for pulmonary vascular congestion, bilateral effusions with bilateral bibasilar compressive atelectasis. She has flank edema. She has a small to moderate pericardial effusion and a stable 1-cm left upper lobe pulmonary nodule. CAT scan of the abdomen and pelvis is notable for increased flank edema, small amount of pelvic free fluid. There was a small amount of air in the urinary bladder lumen, and she is status post recent straight catheterization. She is status post cholecystectomy and abdominal anterior wall surgery. SUMMARY: This is a 79-year-old woman with pelvic pain, probably urinary tract infection; abnormal chest CT; congestive heart failure with likely pneumonia; asymmetric leg edema. Would get duplexes of her legs to rule out deep vein thrombosis. Acute kidney injury, chronic kidney disease management per Cardiology and Renal. She is being seen bilateral Gastroenterology as well for abdominal pain. Would continue ceftriaxone, Zithromax. Check Legionella urinary antigen for completeness, and follow up cultures. Further recommendations to follow. SYLVIA TAMAYO M.D. ADELA/[id number]
[2019-11-24] MEDS ORDERED: LABETALOL HCL 200 MG TABLET (FP) PO SCH (14:00)
[2019-11-24] MEDS: hydrALAZINE HCL 50 MG TABLET (FP) PO SCH ×2 (14:19→21:17)
--- NOTE | 2019-11-24 14:47 | ECHO ---
Version: 1 Name: GIA NEWMAN Exam: Adult Echocardiogram Study Date: 11/24/2019, 1:36 PM Age: 79 Years MMode/2D Measurements & Calculations IVSd: 1.03 cm LVIDs: 2.9 cm LVIDd: 4.5 cm LVPWd: 1.14 cm LAV (MOD-bp): 75.0 ml ACS: 1.52 cm Ao root diam: 2.8 cm LVOT diam: 1.95 cm LA dimension: 4.3 cm Doppler Measurements & Calculations MV E max madi: 139.6 cm/sec Med E/e': 32.1 MV A max madi: 102.6 cm/sec Med Peak E' Madi: 4.3 cm/sec MV E/A: 1.36 Lat E/e': 16.3 Lat Peak E' Madi: 8.6 cm/sec Ao max P.4 mmHg CALLIE(I,D): 2.6 cm Ao mean P.6 mmHg LV V1 mean: 86.4 cm/sec Ao V2 max: 145.2 cm/sec LV V1 mean P.3 mmHg PI end-d madi: 108.6 cm/sec TR max madi: 304.5 cm/sec TR max P.2 mmHg Left Ventricle Left ventricular systolic function is normal. Ejection Fraction = 50-55%. The transmitral spectral D oppler flow pattern is normal for age. Right Ventricle The right ventricle is normal in size and function. Atria The left atrium is mildly dilated. Right atrial size is normal. Mitral Valve There is mild mitral annular calcification. There is no mitral valve stenosis. There is trace mitral regurgitation. Tricuspid Valve The tricuspid valve is normal. There is mild tricuspid regurgitation. Right ventricular systolic pre ssure is elevated at 30-40mmHg. Aortic Valve There is mild aortic sclerosis.;. No hemodynamically significant valvular aortic stenosis. No aortic regurgitation is present. Pulmonic Valve The pulmonic valve is not well seen, but is grossly normal. There is no pulmonic valvular stenosis. Trace pulmonic valvular regurgitation. Great Vessels Moderately dilated inferior vena cava. Pericardium/Pleura Moderate to large pericardial effusion; with no RA or RV diastolic collapse to suggest tamponade. Cl inical correlation is required. There is a pleural effusion present. Tech Comments TDS. Patient unable to lay still and scanned sitting up. Summary Statements Left ventricular systolic function is normal. Ejection Fraction = 50-55%. The left atrium is mildly dilated. There is mild tricuspid regurgitation. Right ventricular systolic pressure is elevated at 30-40mmHg. Moderately dilated inferior vena cava Moderate to large pericardial effusion; with no RA or RV diastolic collapse to suggest tamponade. Cl inical correlation is required. There is a pleural effusion present. MD Frazier *Shereen 11/24/2019, 2:46 PM Ordering Physician: Ester Yu Referring Physician: ESTER YU Performed By: Karli Valencia
[2019-11-24 15:21] LABS: EPI CELLS 2 /uL (0-25.1); HYALINE CASTS 1 /uL (0-3.1); URINE APPEARANCE CLOUDY; URINE BACTERIA >9,000 /uL (0-1359); URINE BILIRUBIN NEGATIVE (NEGATIVE); URINE COLOR YELLOW; URINE GLUCOSE (UA) NEGATIVE (NEGATIVE); URINE KETONE NEGATIVE (NEGATIVE); URINE LEUK ESTERASE 3+ (NEGATIVE); URINE NITRITE NEGATIVE (NEGATIVE); URINE PROTEIN 2+ (NEGATIVE); URINE UROBILINOGEN 0.2 mg/dL (0.2-1.0); URINE WBC 1760 /uL (0-25.8)
[2019-11-24 15:30] LABS: URINE RBC 37.7 /uL (0-23.9)
[2019-11-24] MEDS: ACETAMINOPHEN 325 MG TABLET (FP) PO PRN (15:34)
--- NOTE | 2019-11-24 16:06 | PN ---
Progress Note (short form) - Note Progress Note: Called and discussed with cardio, they are aware of pericardial effusion. they recommend giving the 2 doses of lasix today and re-assessing tomorrow. Will hold lasix tomorrow until pt and vitals assessed by physician. Problem List - Problems (1) JASPER (acute kidney injury) Code(s): N17.9 - ACUTE KIDNEY FAILURE, UNSPECIFIED (2) Acute kidney injury superimposed on chronic kidney disease Code(s): N17.9 - ACUTE KIDNEY FAILURE, UNSPECIFIED; N18.9 - CHRONIC KIDNEY DISEASE, UNSPECIFIED (3) CHF (congestive heart failure) Code(s): I50.9 - HEART FAILURE, UNSPECIFIED Qualifiers: (4) CHF exacerbation Code(s): I50.9 - HEART FAILURE, UNSPECIFIED (5) CKD (chronic kidney disease) Code(s): N18.9 - CHRONIC KIDNEY DISEASE, UNSPECIFIED (6) Dementia Code(s): F03.90 - UNSPECIFIED DEMENTIA WITHOUT BEHAVIORAL DISTURBANCE (7) Diverticulosis Code(s): K57.90 - DVRTCLOS OF INTEST, PART UNSP, W/O PERF OR ABSCESS W/O BLEED
--- NOTE | 2019-11-24 16:52 | CONS ---
DATE OF CONSULTATION: 11/24/2019 PULMONARY CONSULTATION REFERRING PHYSICIAN: Ro Espana MD. HISTORY OF PRESENT ILLNESS: The patient is a 79-year-old female with past medical history of dementia, diabetes, hypertension, hyperlipidemia, Parkinson's, diverticulosis, history of lower GI bleed, diastolic heart failure with frequent admissions for abdominal pain and thecal impactions. The patient admitted with complaints of abdominal pain and shortness of breath. The patient underwent a CAT scan on admission which revealed evidence of bilateral pulmonary vascular congestion with small pericardial effusion. She was admitted to telemetry unit for further monitoring. She was started on IV Lasix. Patient subsequently underwent an echo, which reveals moderate to large pericardial effusion with no evidence of diastolic collapse. She is also noted to have elevated pulmonary artery pressures with right ventricular systolic pressure of 30 to 40. She was evaluated by cardiology as well as GI abdominal discomfort. Patient is a nonsmoker. She denies any history of occupational exposure to chemicals or fumes. PAST MEDICAL HISTORY: Again includes dementia, diabetes, hypertension, hyperlipidemia, Parkinson's, diverticulosis, lower GI bleed, diastolic heart failure. REVIEW OF SYSTEMS: Positive dyspnea. No chest pain, no palpitations, no cough. Positive abdominal discomfort, positive lower extremity edema. CURRENT MEDICATIONS: Include Tylenol, Zithromax, ceftriaxone, Wellbutrin, Remeron, Desyrel, albuterol, Normodyne, Apresoline, Lipitor, NovoLog, Lasix, Protonix, and Synthroid. PHYSICAL EXAMINATION: General: The patient is a well-developed, well-nourished female, awake, alert, dyspneic but in no acute distress. She is afebrile. Vital Signs: Blood pressure 148/96, respiratory rate 18, O2 saturation 97% on unknown quantity of oxygen. HEENT: Normocephalic, atraumatic. Neck: Supple. Heart: Regular S1, S2. Chest: Bilateral crackles. Abdomen: Soft, bowel sounds positive. Extremities: Bilateral lower extremity edema. LABORATORY: WBC is 7.1, hemoglobin 7.8, hematocrit 24, platelet count of 449,000. D-dimer is 728. Blood gas is 7.33, pCO2 of 41 and pO2 of 87 and bicarbonate 21 saturating 96. BUN 36, creatinine 2.3. Chest CT as noted. Echo as noted. IMPRESSION: 1. Acute failure secondary to chronic diastolic heart failure. 2. Abdominal pain. 3. Hypertension. 4. Acute on chronic kidney disease. 5. Parkinson's. 6. Dementia. 7. History of left upper lobe nodule, no change from previous. 8. Pulmonary hypertension. 9. Anemia. 10. Pericardial effusion. supplemental O2, inhaled bronchodilators, continue Lasix, monitor electrolytes, renal function, trend hemoglobin and hematocrit, normal transfusion thresholds, obtain followup chest x-rays, also follow up echoes regarding pericardial effusion, get thoracic surgical evaluation. JONNY CAMPA M.D. [facility]ILAN/[id number]
[2019-11-24] MEDS: FUROSEMIDE 40 MG/4 ML INJECTABLE VIAL IVPUSH ONE ×2 (19:18→19:36)
[2019-11-24] MEDS ORDERED: FUROSEMIDE 40 MG/4 ML INJECTABLE VIAL ONE (19:44)
[2019-11-24] MEDS ORDERED: FUROSEMIDE 40 MG/4 ML INJECTABLE VIAL IVPUSH ONE (20:30)
[2019-11-24] MEDS: MIRTAZAPINE 30 MG TABLET PO SCH (21:17)
[2019-11-24] MEDS: traZODone HCL 50 MG TABLET (FP) PO SCH (21:17)
[2019-11-24] MEDS: ATORVASTATIN CA 20 MG TABLET (FP) PO SCH (21:17)
[2019-11-24] MEDS ORDERED: hydrALAZINE HCL 50 MG TABLET (FP) PO ONE (23:00)
[2019-11-25] MEDS: ACETAMINOPHEN 325 MG TABLET (FP) PO PRN ×2 (04:30→10:50)
[2019-11-25] MEDS: INSULIN SLIDING SCALE (NOVOLOG) 1 VIAL SQ SCH ×4 (06:05→21:06)
[2019-11-25] MEDS: hydrALAZINE HCL 50 MG TABLET (FP) PO SCH ×3 (06:05→21:06)
[2019-11-25] MEDS: LEVOTHYROXINE NA 25 MCG TABLET (FP) PO SCH (06:05)
--- NOTE | 2019-11-25 06:36 | PN ---
Progress Note, Physician History of Present Illness: PULMONARY ALERT,COMFORTABLE,LESS DYSPNEIC - Current Medication List Current Medications: Active Medications Acetaminophen (Tylenol -) 650 mg PO Q4H PRN PRN Reason: PAIN 1-6 Last Admin: 11/24/19 15:34 Dose: 650 mg Documented by: Albuterol Sulfate (Ventolin Hfa Inhaler -) 2 puff IH Q6H PRN PRN Reason: SHORT OF BREATH/WHEEZING Last Admin: 11/24/19 10:09 Dose: 2 puff Documented by: Atorvastatin Calcium (Lipitor -) 20 mg PO [facility] Last Admin: 11/24/19 21:17 Dose: 20 mg Documented by: Bupropion HCl (Wellbutrin Xl -) 150 mg PO DAILY [facility] Last Admin: 11/24/19 10:09 Dose: 150 mg Documented by: Hydralazine HCl (Apresoline -) 50 mg PO TID [facility] Last Admin: 11/25/19 06:05 Dose: 50 mg Documented by: Ceftriaxone Sodium 1 gm/ (Dextrose) 50 mls @ 100 mls/hr IVPB DAILY [facility]; Protocol Last Admin: 11/24/19 10:09 Dose: 100 mls/hr Documented by: Azithromycin (Zithromax 500mg Ivpb (Pre-Docked)) 500 mg in 250 mls @ 250 mls/hr IVPB DAILY [facility] Last Admin: 11/24/19 11:59 Dose: 250 mls/hr Documented by: Insulin Aspart (Novolog Vial Sliding Scale -) 1 vial SQ ACHS [facility]; Protocol Last Admin: 11/25/19 06:05 Dose: Not Given Documented by: Labetalol HCl (Normodyne -) 200 mg PO TID [facility] Last Admin: 11/24/19 14:19 Dose: 200 mg Documented by: Levothyroxine Sodium (Synthroid -) 25 mcg PO DAILY@0700 [facility] Last Admin: 11/25/19 06:05 Dose: 25 mcg Documented by: Mirtazapine (Remeron -) 30 mg PO [facility] Last Admin: 11/24/19 21:17 Dose: 30 mg Documented by: Pantoprazole Sodium (Protonix -) 20 mg PO DAILY [facility] Trazodone HCl (Desyrel -) 50 mg PO [facility] Last Admin: 11/24/19 21:17 Dose: 50 mg Documented by: - Objective Vital Signs: Vital Signs Temperature 98.1 F 11/24/19 22:00 Pulse Rate 67 11/24/19 22:00 Respiratory Rate 20 11/24/19 22:00 Blood Pressure 168/78 11/24/19 23:00 O2 Sat by Pulse Oximetry (%) 98 11/24/19 22:00 Constitutional: Yes: Well Nourished Eyes: Yes: WNL HENT: Yes: WNL Neck: Yes: WNL Cardiovascular: Yes: Regular Rate and Rhythm, S1, S2 Respiratory: Yes: Rales (BIBASILAR CRACKLES) Gastrointestinal: Yes: Normal Bowel Sounds, Soft Extremities: Yes: WNL Edema: Yes Labs: CBC, BMP Problem List - Problems (1) Acute kidney injury superimposed on chronic kidney disease Code(s): N17.9 - ACUTE KIDNEY FAILURE, UNSPECIFIED; N18.9 - CHRONIC KIDNEY DISEASE, UNSPECIFIED (2) Urinary tract infection Code(s): N39.0 - URINARY TRACT INFECTION, SITE NOT SPECIFIED Qualifiers: Urinary tract infection type: site unspecified (3) Abdominal pain Code(s): R10.9 - UNSPECIFIED ABDOMINAL PAIN Qualifiers: Abdominal location: generalized Qualified Code(s): R10.84 - Generalized abdominal pain (4) Abnormal CXR Code(s): R93.89 - ABNORMAL FINDINGS ON DX IMAGING OF OTH BODY STRUCTURES (5) Acute on chronic diastolic (congestive) heart failure Code(s): I50.33 - ACUTE ON CHRONIC DIASTOLIC (CONGESTIVE) HEART FAILURE (6) Anemia Code(s): D64.9 - ANEMIA, UNSPECIFIED (7) CHF exacerbation Code(s): I50.9 - HEART FAILURE, UNSPECIFIED (8) Dementia Code(s): F03.90 - UNSPECIFIED DEMENTIA WITHOUT BEHAVIORAL DISTURBANCE (9) Diabetes Code(s): E11.9 - TYPE 2 DIABETES MELLITUS WITHOUT COMPLICATIONS (10) HLD (hyperlipidemia) Code(s): E78.5 - HYPERLIPIDEMIA, UNSPECIFIED (11) HTN (hypertension) Code(s): I10 - ESSENTIAL (PRIMARY) HYPERTENSION (12) Pleural effusion Code(s): J90 - PLEURAL EFFUSION, NOT ELSEWHERE CLASSIFIED (13) Pulmonary HTN Code(s): I27.20 - PULMONARY HYPERTENSION, UNSPECIFIED (14) SOB (shortness of breath) Code(s): R06.02 - SHORTNESS OF BREATH Assessment/Plan IMP ACUTE HYPOXEMIC RESPIRATORY FAILURE IMPROVING ACUTE ON CHRONIC DIASTOLIC HF ABDOMINAL PAIN HTN ACUTE ON CHRONIC KIDNEY DISEASE PARKINSONS DEMENTIA DONNA NODULE ANEMIA PULMONARY HTN PERICARDIAL EFFUSION PLAN SUPPLEMENTAL O2 INHALED BRONCHODILATORS LASIX ABX MONITOR LYTES,RENAL FUNCTION TREND H+H NORMAL TRANSFUSION THRESHOLD F/U CHEST X-RAYS F/U ECHO MONITOR PERICARDIAL EFFUSION CONSIDER THORACIC SURGERY EVALUATION DR CAMPA Problem List - Problems (1) Acute kidney injury superimposed on chronic kidney disease Code(s): N17.9 - ACUTE KIDNEY FAILURE, UNSPECIFIED; N18.9 - CHRONIC KIDNEY DISEASE, UNSPECIFIED (2) Urinary tract infection Code(s): N39.0 - URINARY TRACT INFECTION, SITE NOT SPECIFIED Qualifiers: Urinary tract infection type: site unspecified (3) Abdominal pain Code(s): R10.9 - UNSPECIFIED ABDOMINAL PAIN Qualifiers: Abdominal location: generalized Qualified Code(s): R10.84 - Generalized abdominal pain (4) Abnormal CXR Code(s): R93.89 - ABNORMAL FINDINGS ON DX IMAGING OF OTH BODY STRUCTURES (5) Acute on chronic diastolic (congestive) heart failure Code(s): I50.33 - ACUTE ON CHRONIC DIASTOLIC (CONGESTIVE) HEART FAILURE (6) Anemia Code(s): D64.9 - ANEMIA, UNSPECIFIED (7) CHF exacerbation Code(s): I50.9 - HEART FAILURE, UNSPECIFIED (8) Dementia Code(s): F03.90 - UNSPECIFIED DEMENTIA WITHOUT BEHAVIORAL DISTURBANCE (9) Diabetes Code(s): E11.9 - TYPE 2 DIABETES MELLITUS WITHOUT COMPLICATIONS (10) HLD (hyperlipidemia) Code(s): E78.5 - HYPERLIPIDEMIA, UNSPECIFIED (11) HTN (hypertension) Code(s): I10 - ESSENTIAL (PRIMARY) HYPERTENSION (12) Pleural effusion Code(s): J90 - PLEURAL EFFUSION, NOT ELSEWHERE CLASSIFIED (13) Pulmonary HTN Code(s): I27.20 - PULMONARY HYPERTENSION, UNSPECIFIED (14) SOB (shortness of breath) Code(s): R06.02 - SHORTNESS OF BREATH
[2019-11-25] MEDS ORDERED: cefTRIAXone SODIUM 1 GM VIAL ONE (09:43)
[2019-11-25] MEDS ORDERED: DEXTROSE 5%-WATER - 50 ML IVPB ONE (09:43)
[2019-11-25] MEDS: AZITHROMYCIN IVPB 500 MG/250 ML BAG IVPB SCH (09:46)
[2019-11-25] MEDS: PANTOPRAZOLE 20 MG TABLET PO SCH (09:46)
[2019-11-25] MEDS: CEFTRIAXONE 1 GM in DEXTROSE 5%-WATER - 50 ML IVPB SCH (09:46)
--- NOTE | 2019-11-25 10:29 | PN ---
Progress Note, Physician - Current Medication List Current Medications: Active Medications Acetaminophen (Tylenol -) 650 mg PO Q4H PRN PRN Reason: PAIN 1-6 Last Admin: 11/25/19 04:30 Dose: 650 mg Documented by: Albuterol Sulfate (Ventolin Hfa Inhaler -) 2 puff IH Q6H PRN PRN Reason: SHORT OF BREATH/WHEEZING Last Admin: 11/24/19 22:00 Dose: 2 puff Documented by: Atorvastatin Calcium (Lipitor -) 20 mg PO [facility] Last Admin: 11/24/19 21:17 Dose: 20 mg Documented by: Bupropion HCl (Wellbutrin Xl -) 150 mg PO DAILY [facility] Last Admin: 11/25/19 09:46 Dose: 150 mg Documented by: Hydralazine HCl (Apresoline -) 50 mg PO TID [facility] Last Admin: 11/25/19 06:05 Dose: 50 mg Documented by: Ceftriaxone Sodium 1 gm/ (Dextrose) 50 mls @ 100 mls/hr IVPB DAILY [facility]; Protocol Last Admin: 11/25/19 09:46 Dose: 100 mls/hr Documented by: Azithromycin (Zithromax 500mg Ivpb (Pre-Docked)) 500 mg in 250 mls @ 250 mls/hr IVPB DAILY [facility] Last Admin: 11/25/19 09:46 Dose: 250 mls/hr Documented by: Insulin Aspart (Novolog Vial Sliding Scale -) 1 vial SQ ACHS [facility]; Protocol Last Admin: 11/25/19 06:05 Dose: Not Given Documented by: Labetalol HCl (Normodyne -) 200 mg PO TID [facility] Last Admin: 11/24/19 14:19 Dose: 200 mg Documented by: Levothyroxine Sodium (Synthroid -) 25 mcg PO DAILY@0700 [facility] Last Admin: 11/25/19 06:05 Dose: 25 mcg Documented by: Mirtazapine (Remeron -) 30 mg PO [facility] Last Admin: 11/24/19 21:17 Dose: 30 mg Documented by: Pantoprazole Sodium (Protonix -) 20 mg PO DAILY [facility] Last Admin: 11/25/19 09:46 Dose: 20 mg Documented by: Trazodone HCl (Desyrel -) 50 mg PO [facility] Last Admin: 11/24/19 21:17 Dose: 50 mg Documented by: - Objective Vital Signs: Vital Signs Temperature 97.4 F L 11/25/19 06:00 Pulse Rate 74 11/25/19 06:00 Respiratory Rate 20 11/25/19 06:00 Blood Pressure 180/84 H 11/25/19 06:00 O2 Sat by Pulse Oximetry (%) 98 11/25/19 06:00 Cardiovascular: Yes: Regular Rate and Rhythm Respiratory: Yes: Regular, Diminished Gastrointestinal: Yes: Normal Bowel Sounds, Soft Edema: No Labs: CBC, BMP 11/24/19 09:30 11/24/19 09:30 INR, PTT INR 1.08 (0.83-1.09) 11/23/19 16:45 Problem List - Problems (1) Acute kidney injury superimposed on chronic kidney disease Assessment/Plan: monitor on diuretics renal consult Code(s): N17.9 - ACUTE KIDNEY FAILURE, UNSPECIFIED; N18.9 - CHRONIC KIDNEY DISEASE, UNSPECIFIED (2) Abdominal pain Assessment/Plan: ct noted ppi gi consult appreciated Code(s): R10.9 - UNSPECIFIED ABDOMINAL PAIN Qualifiers: Abdominal location: generalized Qualified Code(s): R10.84 - Generalized abdominal pain (3) Anemia Assessment/Plan: drop from baseline follow trends ppi gi consult Code(s): D64.9 - ANEMIA, UNSPECIFIED (4) CHF (congestive heart failure) Assessment/Plan: with effusions pulm on board diuretics--cxr cardio and renal opinion appreciated Code(s): I50.9 - HEART FAILURE, UNSPECIFIED Qualifiers: (5) Diabetes Assessment/Plan: bgm with ss Code(s): E11.9 - TYPE 2 DIABETES MELLITUS WITHOUT COMPLICATIONS (6) HTN (hypertension) Assessment/Plan: Vital Signs Period Temp Pulse Resp BP Sys/East Pulse Ox Last 24 Hr 97.4 F-98.1 F 64-74 16-20 111-216/78-96 96-100 Resume nifedepine Code(s): I10 - ESSENTIAL (PRIMARY) HYPERTENSION
--- NOTE | 2019-11-25 11:38 | PN ---
Progress Note (short form) - Note Progress Note: much calmer no chest pain still some nausea Vital Signs Period Temp Pulse Resp BP Sys/East Pulse Ox Last 24 Hr 97.4 F-98.1 F 64-74 16-20 111-216/78-96 96-100 cor-rrr llngs decreased bs at bses abd soft,nt ext less edema Microbiology 11/23/19 17:25 Urine - Urine - Catheterized Urine Culture - Preliminary Non Lactose Fermenting Gnb Non Lactose Fermenting Gnb#2 11/23/19 16:55 Blood - Peripheral Venous Blood Culture - Preliminary NO GROWTH OBTAINED AFTER 24 HOURS, INCUBATION TO CONTINUE FOR 4 DAYS. 11/23/19 16:45 Blood - Peripheral Venous Blood Culture - Preliminary NO GROWTH OBTAINED AFTER 24 HOURS, INCUBATION TO CONTINUE FOR 4 DAYS. duples no dvt CBC, BMP 11/24/19 09:30 11/24/19 09:30 imp/reccd pelvic pain- probable UTI-f/u cultures abnl chest ct-CHF/less likely pneumonia asymmetric leg edema- improved sandi/ckd pericardial effusion-per cardiology continue ceftriaxone/zith check legionella urinary antigen f/u cultures Problem List - Problems (1) Urinary tract infection Code(s): N39.0 - URINARY TRACT INFECTION, SITE NOT SPECIFIED Qualifiers: Urinary tract infection type: site unspecified (2) SOB (shortness of breath) Code(s): R06.02 - SHORTNESS OF BREATH (3) Acute kidney injury superimposed on CKD Code(s): N17.9 - ACUTE KIDNEY FAILURE, UNSPECIFIED; N18.9 - CHRONIC KIDNEY DISEASE, UNSPECIFIED
[2019-11-25] MEDS: FUROSEMIDE 40 MG/4 ML INJECTABLE VIAL IVPUSH SCH (11:55)
[2019-11-25] MEDS: NIFEdipine E.R. 90 MG TABLET PO SCH (11:55)
[2019-11-25 12:21] LABS: BASO % 0.7 % (0-2.0); EOS % 5.5 % (0-4.5); HEMATOCRIT 26.4 % (32.4-45.2); HEMOGLOBIN 8.9 GM/dL (10.7-15.3); LYMPH % 4.2 % (8-40); MCH 27.3 pg (25.7-33.7); MCHC 33.8 g/dl (32.0-36.0); MEAN CELL VOLUME 80.8 fl (80-96); MEAN PLT VOLUME 6.9 fl (7.5-11.1); MONO % 8.7 % (3.8-10.2); NEUT % 80.9 % (42.8-82.8); PLATELET COUNT 466 K/MM3 (134-434); RBC 3.27 M/mm3 (3.60-5.2); RDW 17.9 % (11.6-15.6); WHITE BLOOD COUNT 8.9 K/mm3 (4.0-10.0)
--- NOTE | 2019-11-25 12:42 | PN ---
Progress Note, Physician Chief Complaint: Shortness of breath History of Present Illness: Seen and examined at the bedside awake and alert but not answering questions no overnight events s/p Lasix yesterday for pleural effusion and pericardial effusion no fevers - Current Medication List Current Medications: Active Medications Acetaminophen (Tylenol -) 650 mg PO Q4H PRN PRN Reason: PAIN 1-6 Last Admin: 11/25/19 10:50 Dose: 650 mg Documented by: Albuterol Sulfate (Ventolin Hfa Inhaler -) 2 puff IH Q6H PRN PRN Reason: SHORT OF BREATH/WHEEZING Last Admin: 11/24/19 22:00 Dose: 2 puff Documented by: Atorvastatin Calcium (Lipitor -) 20 mg PO [facility] Last Admin: 11/24/19 21:17 Dose: 20 mg Documented by: Bupropion HCl (Wellbutrin Xl -) 150 mg PO DAILY [facility] Last Admin: 11/25/19 09:46 Dose: 150 mg Documented by: Furosemide (Lasix Injection -) 60 mg IVPUSH DAILY [facility] Last Admin: 11/25/19 11:55 Dose: 60 mg Documented by: Hydralazine HCl (Apresoline -) 50 mg PO TID [facility] Last Admin: 11/25/19 06:05 Dose: 50 mg Documented by: Ceftriaxone Sodium 1 gm/ (Dextrose) 50 mls @ 100 mls/hr IVPB DAILY [facility]; Protocol Last Admin: 11/25/19 09:46 Dose: 100 mls/hr Documented by: Azithromycin (Zithromax 500mg Ivpb (Pre-Docked)) 500 mg in 250 mls @ 250 mls/hr IVPB DAILY [facility] Last Admin: 11/25/19 09:46 Dose: 250 mls/hr Documented by: Insulin Aspart (Novolog Vial Sliding Scale -) 1 vial SQ ACHS [facility]; Protocol Last Admin: 11/25/19 11:24 Dose: Not Given Documented by: Labetalol HCl (Normodyne -) 200 mg PO TID [facility] Last Admin: 11/24/19 14:19 Dose: 200 mg Documented by: Levothyroxine Sodium (Synthroid -) 25 mcg PO DAILY@0700 [facility] Last Admin: 11/25/19 06:05 Dose: 25 mcg Documented by: Mirtazapine (Remeron -) 30 mg PO [facility] Last Admin: 11/24/19 21:17 Dose: 30 mg Documented by: Nifedipine (Procardia Xl -) 90 mg PO DAILY [facility] Last Admin: 11/25/19 11:55 Dose: 90 mg Documented by: Pantoprazole Sodium (Protonix -) 20 mg PO DAILY [facility] Last Admin: 11/25/19 09:46 Dose: 20 mg Documented by: Trazodone HCl (Desyrel -) 50 mg PO HS [facility] Last Admin: 11/24/19 21:17 Dose: 50 mg Documented by: - Objective Vital Signs: Vital Signs Temperature 97.4 F L 11/25/19 06:00 Pulse Rate 74 11/25/19 06:00 Respiratory Rate 20 11/25/19 09:00 Blood Pressure 180/84 H 11/25/19 06:00 O2 Sat by Pulse Oximetry (%) 97 11/25/19 09:00 Constitutional: Yes: No Distress, Calm HENT: Yes: Atraumatic Neck: Yes: Supple Cardiovascular: Yes: Regular Rate and Rhythm. No: Murmur, Rub Respiratory: Yes: Regular, Diminished. No: Rales, Rhonchi Gastrointestinal: Yes: Soft Extremities: No: Cyanosis Edema: No Neurological: Yes: Alert Labs: CBC, BMP 11/25/19 11:20 INR, PTT INR 1.08 (0.83-1.09) 11/23/19 16:45 Assessment/Plan Impression 1. JASPER 2. CKD 3. HLD 4. diverticulosis 5. HTN 6. DM 7. proteinuria 8. hypoalbuminemia 9. UTI 10. pleural effusion 11. chf 12. pericardial effusion 13. fluid overload 14. Moderate to large pericardial effusion Impression Todays BMP pending. Continue IV lasix daily. pericardial effusion w/o evidence of tamponde physiology BP remains elevated. continue antihypertensives as per cardiology. Trend real function and electrolytes daily Douglas Moody DO
[2019-11-25 12:56] LABS: BILIRUBIN,TOTAL 0.4 mg/dL (0.2-1); BLOOD UREA NITROGEN 30.5 mg/dL (7-18); CALCIUM 8.6 mg/dL (8.5-10.1); CREATININE 1.8 mg/dL (0.55-1.3); POTASSIUM 3.6 mmol/L (3.5-5.1); TOT PROT 6.1 g/dl (6.4-8.2)
--- NOTE | 2019-11-25 15:18 | PN ---
Progress Note, Physician Chief Complaint: Telem NSR History of Present Illness: 79-year-old female with dementia, diabetes, hypertension, hyperlipidemia, Parkinson disease, diverticulosis, lower GI bleed, diastolic heart failure, frequent admissions for abdominal pain and fecal impaction and pleural effusions, normal left ventricular systolic function on echo 05/03/2018 without significant valvular abnormalities, bradycardia on labetalol (discontinued), now presenting with abdominal pain and shortness of breath. Fluid overloaded. Echocardiogram with moderate to large pericardial effusion. Normal EF. No tamponade. - Current Medication List Current Medications: Active Medications Acetaminophen (Tylenol -) 650 mg PO Q4H PRN PRN Reason: PAIN 1-6 Last Admin: 11/25/19 10:50 Dose: 650 mg Documented by: Albuterol Sulfate (Ventolin Hfa Inhaler -) 2 puff IH Q6H PRN PRN Reason: SHORT OF BREATH/WHEEZING Last Admin: 11/24/19 22:00 Dose: 2 puff Documented by: Atorvastatin Calcium (Lipitor -) 20 mg PO HS [facility] Last Admin: 11/24/19 21:17 Dose: 20 mg Documented by: Bupropion HCl (Wellbutrin Xl -) 150 mg PO DAILY [facility] Last Admin: 11/25/19 09:46 Dose: 150 mg Documented by: Furosemide (Lasix Injection -) 60 mg IVPUSH DAILY [facility] Last Admin: 11/25/19 11:55 Dose: 60 mg Documented by: Hydralazine HCl (Apresoline -) 50 mg PO TID [facility] Last Admin: 11/25/19 14:09 Dose: 50 mg Documented by: Ceftriaxone Sodium 1 gm/ (Dextrose) 50 mls @ 100 mls/hr IVPB DAILY [facility]; Protocol Last Admin: 11/25/19 09:46 Dose: 100 mls/hr Documented by: Azithromycin (Zithromax 500mg Ivpb (Pre-Docked)) 500 mg in 250 mls @ 250 mls/hr IVPB DAILY [facility] Last Admin: 11/25/19 09:46 Dose: 250 mls/hr Documented by: Insulin Aspart (Novolog Vial Sliding Scale -) 1 vial SQ ACHS [facility]; Protocol Last Admin: 11/25/19 11:24 Dose: Not Given Documented by: Labetalol HCl (Normodyne -) 200 mg PO TID [facility] Last Admin: 11/24/19 14:19 Dose: 200 mg Documented by: Levothyroxine Sodium (Synthroid -) 25 mcg PO DAILY@0700 [facility] Last Admin: 11/25/19 06:05 Dose: 25 mcg Documented by: Mirtazapine (Remeron -) 30 mg PO [facility] Last Admin: 11/24/19 21:17 Dose: 30 mg Documented by: Nifedipine (Procardia Xl -) 90 mg PO DAILY [facility] Last Admin: 11/25/19 11:55 Dose: 90 mg Documented by: Pantoprazole Sodium (Protonix -) 20 mg PO DAILY [facility] Last Admin: 11/25/19 09:46 Dose: 20 mg Documented by: Tramadol HCl (Ultram -) 50 mg PO BID PRN PRN Reason: PAIN LEVEL 7 - 10 Trazodone HCl (Desyrel -) 50 mg PO [facility] Last Admin: 11/24/19 21:17 Dose: 50 mg Documented by: - Objective Vital Signs: Vital Signs Temperature 98.3 F 11/25/19 13:59 Pulse Rate 75 11/25/19 13:59 Respiratory Rate 20 11/25/19 13:59 Blood Pressure 182/72 H 11/25/19 13:59 O2 Sat by Pulse Oximetry (%) 98 11/25/19 13:59 Constitutional: Yes: Well Nourished, No Distress Eyes: Yes: Conjunctiva Clear HENT: Yes: Atraumatic, Normocephalic Neck: Yes: Supple, Trachea Midline Cardiovascular: Yes: JVD Respiratory: Yes: CTA Bilaterally Gastrointestinal: Yes: Normal Bowel Sounds Labs: CBC, BMP 11/25/19 11:20 11/25/19 11:20 INR, PTT INR 1.08 (0.83-1.09) 11/23/19 16:45 Problem List - Problems (1) JASPER (acute kidney injury) Code(s): N17.9 - ACUTE KIDNEY FAILURE, UNSPECIFIED (2) Acute kidney injury superimposed on CKD Code(s): N17.9 - ACUTE KIDNEY FAILURE, UNSPECIFIED; N18.9 - CHRONIC KIDNEY DISEASE, UNSPECIFIED Assessment/Plan The patient is a 79-year-old female with dementia, diabetes, hypertension, hyperlipidemia, Parkinson disease, diverticulosis, lower GI bleed, diastolic heart failure, frequent admissions for abdominal pain and fecal impaction and pleural effusions, normal left ventricular systolic function on echo 05/03/2018 without significant valvular abnormalities, bradycardia on labetalol, now presenting with abdominal pain and shortness of breath. Fluid overloaded. Pericardial effusion with preserved biventricular function and no sings of tamponade. Increase hydralazine to 100 mg 3 times a day. Continue diuresis IV Hemodynamically stable. We will follow.
--- NOTE | 2019-11-25 20:00 | CON.HO ---
Consult Consult Specialty:: Heme/Onc Referred by:: Dr. Singh Reason for Consultation:: Anemia - History of Present Illness History of Present Illness: 79F with of CKD, HTN, DM, CHF, dementia, parkinsons, diverticulosis presented with abdominal pain. Also with SOB due to acute on chronic diastolic CHF. CT chest/abd/pelvis with pulmonary vascular congestion, b/l pleural effusions, no obvious abdominal issues. Also with pericardial effusion. Being treated for CHF. Hematology consulted for anemia. Previously evaluated for same in 03/2019, though t to be due to CKD. Hgb 7.8 (9-10 in 04/2019), MCV 82. Mild thrombocytosis. Ferritin 310, iron sat 14%,TIBC low, LDH normal. TSH mildly elevated in 04/2019.SPEP neg and FLC ratio 2.1 in 02/2019/. - Past Medical History [employer] REPRESENTATIVE: Yes: Dementia, Peripheral Neuropathy, Parkinson's Cardio/Vascular: Yes: CHF, HTN, Hyperlipdemia Gastrointestinal: Yes: Diverticulosis ...: No Psych: Yes: Anxiety Musculoskeletal: Yes: Osteoarthritis Endocrine: Yes: Diabetes Mellitus - Past Surgical History Past Surgical History: Yes: Appendectomy, Cholecystectomy, Additional Surgical History: Skin graft to lower abdomen: complications from ab dominoplasty performed in the [place] several years ago - Alcohol/Substance Use Hx Alcohol Use: No History of Substance Use: reports: None (unknown) - Smoking History Smoking history: Never smoked Have you smoked in the past 12 months: No Aproximately how many cigarettes per day: 0 - Social History Usual Living Arrangement: Alone 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 (also has [employer] 6 hours x5 days and 5 hours x2 days) History of Recent Travel: No Home Medications - Allergies Allergies/Adverse Reactions: Allergies Allergy/AdvReac Type Severity Reaction Status Date / Time carbidopa [From Sinemet] AdvReac Verified 11/23/19 15:47 levodopa [From Sinemet] AdvReac Verified 11/23/19 15:47 - Home Medications Home Medications: Ambulatory Orders Levothyroxine [Synthroid -] 25 mcg PO DAILY 04/24/19 Aspirin 81 mg PO DAILY 04/25/19 Atorvastatin Ca [Lipitor] 20 mg PO HS 04/25/19 Bupropion HCl [Wellbutrin -] 150 mg PO DAILY 04/25/19 Furosemide 80 mg PO TID 04/25/19 Hydralazine HCl 50 mg PO TID 04/25/19 Labetalol HCl [Normodyne -] 200 mg PO TID 04/25/19 Lipase/Protease/Amylase [Creon Dr 36,000 Units Capsule] 1 each PO TID 04/25/19 Mirtazapine 30 mg PO HS 04/25/19 Nifedipine [Procardia Xl] 60 mg PO BID 04/25/19 Olmesartan Medoxomil [Benicar -] 40 mg PO DAILY 04/25/19 Potassium Chloride 20 meq PO DAILY 04/25/19 Diclofenac Sodium 75 mg PO DAILY 11/23/19 Dicyclomine HCl 10 mg PO DAILY 11/23/19 Memantine HCl/Donepezil HCl [Namzaric 14 mg-10 mg Capsule] 1 cap PO DAILY 11/23/19 traZODone HCL [Trazodone HCl] 50 mg PO HS 11/23/19 Family Medical History Family History: Unable to Obtain (poor historian), Denies Physical Exam Vital Signs: Vital Signs Temperature 98.2 F 11/25/19 18:00 Pulse Rate 76 11/25/19 18:00 Respiratory Rate 20 11/25/19 18:00 Blood Pressure 141/74 11/25/19 18:00 O2 Sat by Pulse Oximetry (%) 95 11/25/19 18:00 Constitutional: Yes: Mild Distress Eyes: Yes: Conjunctiva Clear Respiratory: Yes: Regular. No: Accessory Muscle Use Gastrointestinal: Yes: Soft, Tenderness Edema: No Edema: LLE: 1+, RLE: 1+ Labs: CBC, BMP 11/25/19 11:20 11/25/19 11:20 Imaging - Results Cat Scan: Report Reviewed Assessment/Plan 79F with of CKD, HTN, DM, CHF, dementia, parkinsons, diverticulosis admitted with CHF exacerbation. Hematology consulted for anemia. Hgb 7.8 (9-10 in 04/2019), MCV 82. Mild thrombocytosis. Ferritin 310, iron sat 14%,TIBC low, LDH normal. TSH mildly elevated in 04/2019.SPEP neg and FLC ratio 2.1 in 02/2019. Peripheral smear unremarkable Anemia likely 2/2 CKD. Check retics, b12, folate, repeat TSH. Can consider JESUS if Hgb remains <10 as outpatient.
[2019-11-25] MEDS: traMADol HCL 50 MG TABLET PO PRN (21:04)
[2019-11-25] MEDS: ATORVASTATIN CA 20 MG TABLET (FP) PO SCH (21:04)
[2019-11-25] MEDS: traZODone HCL 50 MG TABLET (FP) PO SCH (21:05)
[2019-11-25] MEDS: MIRTAZAPINE 30 MG TABLET PO SCH (21:06)
[2019-11-26] MEDS: ACETAMINOPHEN 325 MG TABLET (FP) PO PRN (04:53)
[2019-11-26] MEDS: hydrALAZINE HCL 50 MG TABLET (FP) PO SCH ×3 (05:00→21:14)
[2019-11-26] MEDS: LEVOTHYROXINE NA 25 MCG TABLET (FP) PO SCH (06:03)
[2019-11-26] MEDS: INSULIN SLIDING SCALE (NOVOLOG) 1 VIAL SQ SCH ×4 (06:03→21:14)
--- NOTE | 2019-11-26 06:43 | PN ---
Progress Note, Physician History of Present Illness: PULMONARY ALERT,COMFORTABLE,SOB IMPROVING,-CP - Current Medication List Current Medications: Active Medications Acetaminophen (Tylenol -) 650 mg PO Q4H PRN PRN Reason: PAIN 1-6 Last Admin: 11/26/19 04:53 Dose: 650 mg Documented by: Albuterol Sulfate (Ventolin Hfa Inhaler -) 2 puff IH Q6H PRN PRN Reason: SHORT OF BREATH/WHEEZING Last Admin: 11/24/19 22:00 Dose: 2 puff Documented by: Atorvastatin Calcium (Lipitor -) 20 mg PO [facility] Last Admin: 11/25/19 21:04 Dose: 20 mg Documented by: Bupropion HCl (Wellbutrin Xl -) 150 mg PO DAILY [facility] Last Admin: 11/25/19 09:46 Dose: 150 mg Documented by: Furosemide (Lasix Injection -) 60 mg IVPUSH DAILY [facility] Last Admin: 11/25/19 11:55 Dose: 60 mg Documented by: Hydralazine HCl (Apresoline -) 50 mg PO TID [facility] Last Admin: 11/26/19 05:00 Dose: 50 mg Documented by: Ceftriaxone Sodium 1 gm/ (Dextrose) 50 mls @ 100 mls/hr IVPB DAILY [facility]; Protocol Last Admin: 11/25/19 09:46 Dose: 100 mls/hr Documented by: Azithromycin (Zithromax 500mg Ivpb (Pre-Docked)) 500 mg in 250 mls @ 250 mls/hr IVPB DAILY [facility] Last Admin: 11/25/19 09:46 Dose: 250 mls/hr Documented by: Insulin Aspart (Novolog Vial Sliding Scale -) 1 vial SQ ACHS [facility]; Protocol Last Admin: 11/26/19 06:03 Dose: Not Given Documented by: Labetalol HCl (Normodyne -) 200 mg PO TID [facility] Last Admin: 11/24/19 14:19 Dose: 200 mg Documented by: Levothyroxine Sodium (Synthroid -) 25 mcg PO DAILY@0700 [facility] Last Admin: 11/26/19 06:03 Dose: 25 mcg Documented by: Mirtazapine (Remeron -) 30 mg PO [facility] Last Admin: 11/25/19 21:06 Dose: 30 mg Documented by: Nifedipine (Procardia Xl -) 90 mg PO DAILY [facility] Last Admin: 11/25/19 11:55 Dose: 90 mg Documented by: Pantoprazole Sodium (Protonix -) 20 mg PO DAILY [facility] Last Admin: 11/25/19 09:46 Dose: 20 mg Documented by: Tramadol HCl (Ultram -) 50 mg PO BID PRN PRN Reason: PAIN LEVEL 7 - 10 Last Admin: 11/25/19 21:04 Dose: 50 mg Documented by: Trazodone HCl (Desyrel -) 50 mg PO HS [facility] Last Admin: 11/25/19 21:05 Dose: 50 mg Documented by: - Objective Vital Signs: Vital Signs Temperature 98.2 F 11/25/19 22:00 Pulse Rate 79 11/25/19 22:00 Respiratory Rate 20 11/25/19 22:00 Blood Pressure 156/55 L 11/25/19 22:00 O2 Sat by Pulse Oximetry (%) 93 L 11/25/19 22:00 Constitutional: Yes: Well Nourished, Calm Eyes: Yes: WNL HENT: Yes: WNL Neck: Yes: WNL Cardiovascular: Yes: Regular Rate and Rhythm, S1, S2 Respiratory: Yes: Rales (LESS CRACKLES BILATERALLY) Gastrointestinal: Yes: Normal Bowel Sounds, Soft Extremities: Yes: WNL Edema: Yes Labs: CBC, BMP Problem List - Problems (1) Acute kidney injury superimposed on chronic kidney disease Code(s): N17.9 - ACUTE KIDNEY FAILURE, UNSPECIFIED; N18.9 - CHRONIC KIDNEY DISEASE, UNSPECIFIED (2) Urinary tract infection Code(s): N39.0 - URINARY TRACT INFECTION, SITE NOT SPECIFIED Qualifiers: Urinary tract infection type: site unspecified (3) Abdominal pain Code(s): R10.9 - UNSPECIFIED ABDOMINAL PAIN Qualifiers: Abdominal location: generalized Qualified Code(s): R10.84 - Generalized abdominal pain (4) Abnormal CXR Code(s): R93.89 - ABNORMAL FINDINGS ON DX IMAGING OF OTH BODY STRUCTURES (5) Acute on chronic diastolic (congestive) heart failure Code(s): I50.33 - ACUTE ON CHRONIC DIASTOLIC (CONGESTIVE) HEART FAILURE (6) Anemia Code(s): D64.9 - ANEMIA, UNSPECIFIED (7) CHF exacerbation Code(s): I50.9 - HEART FAILURE, UNSPECIFIED (8) Dementia Code(s): F03.90 - UNSPECIFIED DEMENTIA WITHOUT BEHAVIORAL DISTURBANCE (9) Diabetes Code(s): E11.9 - TYPE 2 DIABETES MELLITUS WITHOUT COMPLICATIONS (10) HLD (hyperlipidemia) Code(s): E78.5 - HYPERLIPIDEMIA, UNSPECIFIED (11) HTN (hypertension) Code(s): I10 - ESSENTIAL (PRIMARY) HYPERTENSION (12) Pleural effusion Code(s): J90 - PLEURAL EFFUSION, NOT ELSEWHERE CLASSIFIED (13) Pulmonary HTN Code(s): I27.20 - PULMONARY HYPERTENSION, UNSPECIFIED (14) SOB (shortness of breath) Code(s): R06.02 - SHORTNESS OF BREATH Assessment/Plan IMP ACUTE HYPOXEMIC RESPIRATORY FAILURE IMPROVING ACUTE ON CHRONIC DIASTOLIC HF ABDOMINAL PAIN HTN ACUTE ON CHRONIC KIDNEY DISEASE PARKINSONS DEMENTIA DONNA NODULE ANEMIA PULMONARY HTN PERICARDIAL EFFUSION PLAN SUPPLEMENTAL O2 INHALED BRONCHODILATORS LASIX ABX MONITOR LYTES,RENAL FUNCTION TREND H+H NORMAL TRANSFUSION THRESHOLD F/U CHEST X-RAYS F/U ECHO MONITOR PERICARDIAL EFFUSION CONSIDER THORACIC SURGERY EVALUATION DR CAMPA Problem List - Problems (1) Acute kidney injury superimposed on chronic kidney disease Code(s): N17.9 - ACUTE KIDNEY FAILURE, UNSPECIFIED; N18.9 - CHRONIC KIDNEY DISEASE, UNSPECIFIED (2) Urinary tract infection Code(s): N39.0 - URINARY TRACT INFECTION, SITE NOT SPECIFIED Qualifiers: Urinary tract infection type: site unspecified (3) Abdominal pain Code(s): R10.9 - UNSPECIFIED ABDOMINAL PAIN Qualifiers: Abdominal location: generalized Qualified Code(s): R10.84 - Generalized abdominal pain (4) Abnormal CXR Code(s): R93.89 - ABNORMAL FINDINGS ON DX IMAGING OF OTH BODY STRUCTURES (5) Acute on chronic diastolic (congestive) heart failure Code(s): I50.33 - ACUTE ON CHRONIC DIASTOLIC (CONGESTIVE) HEART FAILURE (6) Anemia Code(s): D64.9 - ANEMIA, UNSPECIFIED (7) CHF exacerbation Code(s): I50.9 - HEART FAILURE, UNSPECIFIED (8) Dementia Code(s): F03.90 - UNSPECIFIED DEMENTIA WITHOUT BEHAVIORAL DISTURBANCE (9) Diabetes Code(s): E11.9 - TYPE 2 DIABETES MELLITUS WITHOUT COMPLICATIONS (10) HLD (hyperlipidemia) Code(s): E78.5 - HYPERLIPIDEMIA, UNSPECIFIED (11) HTN (hypertension) Code(s): I10 - ESSENTIAL (PRIMARY) HYPERTENSION (12) Pleural effusion Code(s): J90 - PLEURAL EFFUSION, NOT ELSEWHERE CLASSIFIED (13) Pulmonary HTN Code(s): I27.20 - PULMONARY HYPERTENSION, UNSPECIFIED (14) SOB (shortness of breath) Code(s): R06.02 - SHORTNESS OF BREATH
[2019-11-26 08:42] LABS: HEMATOCRIT 24.6 % (32.4-45.2); HEMOGLOBIN 8.4 GM/dL (10.7-15.3); MCHC 34.2 g/dl (32.0-36.0); MEAN CELL VOLUME 81.8 fl (80-96); MEAN PLT VOLUME 6.7 fl (7.5-11.1); PLATELET COUNT 432 K/MM3 (134-434); RBC 3.01 M/mm3 (3.60-5.2); RDW 17.5 % (11.6-15.6); WHITE BLOOD COUNT 9.1 K/mm3 (4.0-10.0)
[2019-11-26 09:07] LABS: BILIRUBIN,TOTAL 0.7 mg/dL (0.2-1); BLOOD UREA NITROGEN 31.4 mg/dL (7-18); CALCIUM 8.5 mg/dL (8.5-10.1); CREATININE 1.8 mg/dL (0.55-1.3); MAGNESIUM 2.1 mg/dL (1.8-2.4); PHOSPHOROUS 2.9 mg/dL (2.5-4.9); POTASSIUM 3.5 mmol/L (3.5-5.1)
[2019-11-26] MEDS ORDERED: DEXTROSE 5%-WATER - 50 ML IVPB ONE (09:21)
[2019-11-26] MEDS ORDERED: cefTRIAXone SODIUM 1 GM VIAL ONE (09:21)
[2019-11-26] MEDS: PANTOPRAZOLE 20 MG TABLET PO SCH (09:23)
[2019-11-26] MEDS: FUROSEMIDE 40 MG/4 ML INJECTABLE VIAL IVPUSH SCH (09:23)
[2019-11-26] MEDS: CEFTRIAXONE 1 GM in DEXTROSE 5%-WATER - 50 ML IVPB SCH (09:23)
[2019-11-26] MEDS: NIFEdipine E.R. 90 MG TABLET PO SCH (09:23)
[2019-11-26] MEDS: ALBUTEROL SO4 HFA INHALER IH PRN (09:24)
[2019-11-26] MEDS: traMADol HCL 50 MG TABLET PO PRN ×2 (09:25→21:14)
--- NOTE | 2019-11-26 10:01 | PN ---
Progress Note, Physician - Current Medication List Current Medications: Active Medications Acetaminophen (Tylenol -) 650 mg PO Q4H PRN PRN Reason: PAIN 1-6 Last Admin: 11/26/19 04:53 Dose: 650 mg Documented by: Albuterol Sulfate (Ventolin Hfa Inhaler -) 2 puff IH Q6H PRN PRN Reason: SHORT OF BREATH/WHEEZING Last Admin: 11/26/19 09:24 Dose: 2 puff Documented by: Atorvastatin Calcium (Lipitor -) 20 mg PO [facility] Last Admin: 11/25/19 21:04 Dose: 20 mg Documented by: Bupropion HCl (Wellbutrin Xl -) 150 mg PO DAILY [facility] Last Admin: 11/26/19 09:23 Dose: 150 mg Documented by: Furosemide (Lasix Injection -) 60 mg IVPUSH DAILY [facility] Last Admin: 11/26/19 09:23 Dose: 60 mg Documented by: Hydralazine HCl (Apresoline -) 50 mg PO TID [facility] Last Admin: 11/26/19 05:00 Dose: 50 mg Documented by: Ceftriaxone Sodium 1 gm/ (Dextrose) 50 mls @ 100 mls/hr IVPB DAILY [facility]; Protocol Last Admin: 11/26/19 09:23 Dose: 100 mls/hr Documented by: Azithromycin (Zithromax 500mg Ivpb (Pre-Docked)) 500 mg in 250 mls @ 250 mls/hr IVPB DAILY [facility] Last Admin: 11/25/19 09:46 Dose: 250 mls/hr Documented by: Insulin Aspart (Novolog Vial Sliding Scale -) 1 vial SQ ACHS [facility]; Protocol Last Admin: 11/26/19 06:03 Dose: Not Given Documented by: Labetalol HCl (Normodyne -) 200 mg PO TID [facility] Last Admin: 11/24/19 14:19 Dose: 200 mg Documented by: Levothyroxine Sodium (Synthroid -) 25 mcg PO DAILY@0700 [facility] Last Admin: 11/26/19 06:03 Dose: 25 mcg Documented by: Mirtazapine (Remeron -) 30 mg PO [facility] Last Admin: 11/25/19 21:06 Dose: 30 mg Documented by: Nifedipine (Procardia Xl -) 90 mg PO DAILY [facility] Last Admin: 11/26/19 09:23 Dose: 90 mg Documented by: Pantoprazole Sodium (Protonix -) 20 mg PO DAILY [facility] Last Admin: 11/26/19 09:23 Dose: 20 mg Documented by: Tramadol HCl (Ultram -) 50 mg PO BID PRN PRN Reason: PAIN LEVEL 7 - 10 Last Admin: 11/26/19 09:25 Dose: 50 mg Documented by: Trazodone HCl (Desyrel -) 50 mg PO HS [facility] Last Admin: 11/25/19 21:05 Dose: 50 mg Documented by: - Objective Vital Signs: Vital Signs Temperature 97.9 F 11/26/19 09:43 Pulse Rate 80 11/26/19 09:43 Respiratory Rate 18 11/26/19 09:43 Blood Pressure 161/60 11/26/19 09:43 O2 Sat by Pulse Oximetry (%) 98 11/26/19 09:43 Cardiovascular: Yes: Regular Rate and Rhythm Respiratory: Yes: Diminished (at the bases). No: Rhonchi, Wheezes Gastrointestinal: Yes: Normal Bowel Sounds, Soft Labs: CBC, BMP 11/26/19 07:14 11/26/19 07:14 INR, PTT INR 1.08 (0.83-1.09) 11/23/19 16:45 Problem List - Problems (1) Acute kidney injury superimposed on chronic kidney disease Assessment/Plan: monitor on diuretics renal consult Code(s): N17.9 - ACUTE KIDNEY FAILURE, UNSPECIFIED; N18.9 - CHRONIC KIDNEY DISEASE, UNSPECIFIED (2) Abdominal pain Assessment/Plan: ct noted ppi gi consult appreciated Code(s): R10.9 - UNSPECIFIED ABDOMINAL PAIN Qualifiers: Abdominal location: generalized Qualified Code(s): R10.84 - Generalized abdominal pain (3) Anemia Assessment/Plan: drop from baseline follow trends ppi gi consult Code(s): D64.9 - ANEMIA, UNSPECIFIED (4) CHF (congestive heart failure) Assessment/Plan: with effusions pulm on board diuretics--cxr cardio and renal opinion appreciated Code(s): I50.9 - HEART FAILURE, UNSPECIFIED Qualifiers: (5) Diabetes Assessment/Plan: bgm with ss Code(s): E11.9 - TYPE 2 DIABETES MELLITUS WITHOUT COMPLICATIONS (6) HTN (hypertension) Assessment/Plan: Vital Signs Period Temp Pulse Resp BP Sys/East Pulse Ox Last 24 Hr 97.4 F-98.1 F 64-74 16-20 111-216/78-96 96-100 Resume nifedepine Code(s): I10 - ESSENTIAL (PRIMARY) HYPERTENSION (7) Pericardial effusion Assessment/Plan: echo noted--no signs of tamponade cardio on board TS consult Code(s): I31.3 - PERICARDIAL EFFUSION (NONINFLAMMATORY) (8) Pleural effusion Assessment/Plan: on diuretics Code(s): J90 - PLEURAL EFFUSION, NOT ELSEWHERE CLASSIFIED
[2019-11-26] MEDS: AZITHROMYCIN IVPB 500 MG/250 ML BAG IVPB SCH (10:45)
--- NOTE | 2019-11-26 12:47 | PN ---
Progress Note, Physician Chief Complaint: Shortness of breath History of Present Illness: Seen and examined at the bedside awake and alert has no acute complints denies any CP, SOB, abd pain no overnight events - Current Medication List Current Medications: Active Medications Acetaminophen (Tylenol -) 650 mg PO Q4H PRN PRN Reason: PAIN 1-6 Last Admin: 11/26/19 04:53 Dose: 650 mg Documented by: Albuterol Sulfate (Ventolin Hfa Inhaler -) 2 puff IH Q6H PRN PRN Reason: SHORT OF BREATH/WHEEZING Last Admin: 11/26/19 09:24 Dose: 2 puff Documented by: Atorvastatin Calcium (Lipitor -) 20 mg PO [facility] Last Admin: 11/25/19 21:04 Dose: 20 mg Documented by: Bupropion HCl (Wellbutrin Xl -) 150 mg PO DAILY [facility] Last Admin: 11/26/19 09:23 Dose: 150 mg Documented by: Furosemide (Lasix Injection -) 60 mg IVPUSH DAILY [facility] Last Admin: 11/26/19 09:23 Dose: 60 mg Documented by: Hydralazine HCl (Apresoline -) 50 mg PO TID [facility] Last Admin: 11/26/19 05:00 Dose: 50 mg Documented by: Ceftriaxone Sodium 1 gm/ (Dextrose) 50 mls @ 100 mls/hr IVPB DAILY [facility]; Protocol Last Admin: 11/26/19 09:23 Dose: 100 mls/hr Documented by: Azithromycin (Zithromax 500mg Ivpb (Pre-Docked)) 500 mg in 250 mls @ 250 mls/hr IVPB DAILY [facility] Last Admin: 11/26/19 10:45 Dose: 250 mls/hr Documented by: Insulin Aspart (Novolog Vial Sliding Scale -) 1 vial SQ ACHS [facility]; Protocol Last Admin: 11/26/19 11:42 Dose: Not Given Documented by: Labetalol HCl (Normodyne -) 200 mg PO TID [facility] Last Admin: 11/24/19 14:19 Dose: 200 mg Documented by: Levothyroxine Sodium (Synthroid -) 25 mcg PO DAILY@0700 [facility] Last Admin: 11/26/19 06:03 Dose: 25 mcg Documented by: Mirtazapine (Remeron -) 30 mg PO [facility] Last Admin: 11/25/19 21:06 Dose: 30 mg Documented by: Nifedipine (Procardia Xl -) 90 mg PO DAILY [facility] Last Admin: 11/26/19 09:23 Dose: 90 mg Documented by: Pantoprazole Sodium (Protonix -) 20 mg PO DAILY [facility] Last Admin: 11/26/19 09:23 Dose: 20 mg Documented by: Tramadol HCl (Ultram -) 50 mg PO BID PRN PRN Reason: PAIN LEVEL 7 - 10 Last Admin: 11/26/19 09:25 Dose: 50 mg Documented by: Trazodone HCl (Desyrel -) 50 mg PO HS [facility] Last Admin: 11/25/19 21:05 Dose: 50 mg Documented by: - Objective Vital Signs: Vital Signs Temperature 97.9 F 11/26/19 09:43 Pulse Rate 80 11/26/19 09:43 Respiratory Rate 18 11/26/19 09:43 Blood Pressure 161/60 11/26/19 09:43 O2 Sat by Pulse Oximetry (%) 98 11/26/19 10:00 Constitutional: Yes: No Distress HENT: Yes: Atraumatic Neck: Yes: Supple Cardiovascular: Yes: Regular Rate and Rhythm Respiratory: Yes: Regular, Diminished Gastrointestinal: Yes: Soft Extremities: No: Cyanosis Edema: No Neurological: Yes: Alert Labs: CBC, BMP 11/26/19 07:14 11/26/19 07:14 INR, PTT INR 1.08 (0.83-1.09) 11/23/19 16:45 Assessment/Plan Impression 1. JASPER 2. CKD 3. HLD 4. diverticulosis 5. HTN 6. DM 7. proteinuria 8. hypoalbuminemia 9. UTI 10. pleural effusion 11. chf 12. pericardial effusion 13. fluid overload 14. Moderate to large pericardial effusion Impression Renal function table Continue IV lasix daily. pericardial effusion w/o evidence of tamponde physiology BP remains elevated. continue antihypertensives as per cardiology. Trend real function and electrolytes daily Douglas Moody DO
--- NOTE | 2019-11-26 15:40 | PN ---
Progress Note, Physician Chief Complaint: Cardiology FU No dyspnea Telem NSR History of Present Illness: 79-year-old female with dementia, diabetes, hypertension, hyperlipidemia, Parkinson disease, diverticulosis, lower GI bleed, diastolic heart failure, frequent admissions for abdominal pain and fecal impaction and pleural effusions, normal left ventricular systolic function on echo 05/03/2018 without significant valvular abnormalities, bradycardia on labetalol (discontinued), now presenting with abdominal pain and shortness of breath. Fluid overloaded. Echocardiogram with moderate to large pericardial effusion. Normal EF. No tamponade. - Current Medication List Current Medications: Active Medications Acetaminophen (Tylenol -) 650 mg PO Q4H PRN PRN Reason: PAIN 1-6 Last Admin: 11/26/19 04:53 Dose: 650 mg Documented by: Albuterol Sulfate (Ventolin Hfa Inhaler -) 2 puff IH Q6H PRN PRN Reason: SHORT OF BREATH/WHEEZING Last Admin: 11/26/19 09:24 Dose: 2 puff Documented by: Atorvastatin Calcium (Lipitor -) 20 mg PO HS [facility] Last Admin: 11/25/19 21:04 Dose: 20 mg Documented by: Bupropion HCl (Wellbutrin Xl -) 150 mg PO DAILY [facility] Last Admin: 11/26/19 09:23 Dose: 150 mg Documented by: Furosemide (Lasix Injection -) 60 mg IVPUSH DAILY [facility] Last Admin: 11/26/19 09:23 Dose: 60 mg Documented by: Hydralazine HCl (Apresoline -) 50 mg PO TID [facility] Last Admin: 11/26/19 13:48 Dose: 50 mg Documented by: Ceftriaxone Sodium 1 gm/ (Dextrose) 50 mls @ 100 mls/hr IVPB DAILY [facility]; Protocol Last Admin: 11/26/19 09:23 Dose: 100 mls/hr Documented by: Azithromycin (Zithromax 500mg Ivpb (Pre-Docked)) 500 mg in 250 mls @ 250 mls/hr IVPB DAILY [facility] Last Admin: 11/26/19 10:45 Dose: 250 mls/hr Documented by: Insulin Aspart (Novolog Vial Sliding Scale -) 1 vial SQ ACHS [facility]; Protocol Last Admin: 11/26/19 11:42 Dose: Not Given Documented by: Labetalol HCl (Normodyne -) 200 mg PO TID [facility] Last Admin: 11/24/19 14:19 Dose: 200 mg Documented by: Levothyroxine Sodium (Synthroid -) 25 mcg PO DAILY@0700 [facility] Last Admin: 11/26/19 06:03 Dose: 25 mcg Documented by: Mirtazapine (Remeron -) 30 mg PO HS [facility] Last Admin: 11/25/19 21:06 Dose: 30 mg Documented by: Nifedipine (Procardia Xl -) 90 mg PO DAILY [facility] Last Admin: 11/26/19 09:23 Dose: 90 mg Documented by: Pantoprazole Sodium (Protonix -) 20 mg PO DAILY [facility] Last Admin: 11/26/19 09:23 Dose: 20 mg Documented by: Tramadol HCl (Ultram -) 50 mg PO BID PRN PRN Reason: PAIN LEVEL 7 - 10 Last Admin: 11/26/19 09:25 Dose: 50 mg Documented by: Trazodone HCl (Desyrel -) 50 mg PO [facility] Last Admin: 11/25/19 21:05 Dose: 50 mg Documented by: - Objective Vital Signs: Vital Signs Temperature 97.7 F 11/26/19 13:59 Pulse Rate 71 11/26/19 13:59 Respiratory Rate 18 11/26/19 13:59 Blood Pressure 146/77 11/26/19 13:59 O2 Sat by Pulse Oximetry (%) 98 11/26/19 13:59 Constitutional: Yes: Well Nourished, No Distress Eyes: Yes: Conjunctiva Clear HENT: Yes: Atraumatic, Normocephalic Neck: Yes: Supple, Trachea Midline Cardiovascular: Yes: Regular Rate and Rhythm, S1, S2. No: JVD Edema: Yes Labs: CBC, BMP 11/26/19 07:14 11/26/19 07:14 INR, PTT INR 1.08 (0.83-1.09) 11/23/19 16:45 Problem List - Problems (1) JASPER (acute kidney injury) Code(s): N17.9 - ACUTE KIDNEY FAILURE, UNSPECIFIED (2) Acute kidney injury superimposed on CKD Code(s): N17.9 - ACUTE KIDNEY FAILURE, UNSPECIFIED; N18.9 - CHRONIC KIDNEY DIS EASE, UNSPECIFIED Assessment/Plan The patient is a 79-year-old female with dementia, diabetes, hypertension, hyperlipidemia, Parkinson disease, diverticulosis, lower GI bleed, diastolic heart failure, frequent admissions for abdominal pain and fecal impaction and pleural effusions, normal left ventricular systolic function on echo 05/03/2018 without significant valvular abnormalities, bradycardia on labetalol, now presenting with abdominal pain and shortness of breath. Fluid overloaded. Pericardial effusion with preserved biventricular function and no sings of ta mponade. Increase hydralazine to 100 mg 3 times a day. Continue diuresis IV Hemodynamically stable. No indication for pericardial tamponade. Would differ pericardiocentesis. We will follow.
[2019-11-26] MEDS: ERTAPENEM SODIUM 0.5 GM in SODIUM CHLORIDE 50 ML IVPB SCH (19:29)
[2019-11-26] MEDS: MIRTAZAPINE 30 MG TABLET PO SCH (21:14)
[2019-11-26] MEDS: traZODone HCL 50 MG TABLET (FP) PO SCH (21:14)
[2019-11-26] MEDS: ATORVASTATIN CA 20 MG TABLET (FP) PO SCH (21:14)
[2019-11-26] MEDS ORDERED: ONDANSETRON 4 MG TABLET PO ONE (22:13)
[2019-11-27] MEDS: hydrALAZINE HCL 50 MG TABLET (FP) PO SCH ×3 (05:51→22:19)
[2019-11-27] MEDS: ACETAMINOPHEN 325 MG TABLET (FP) PO PRN (05:51)
[2019-11-27] MEDS: INSULIN SLIDING SCALE (NOVOLOG) 1 VIAL SQ SCH ×4 (06:05→22:18)
[2019-11-27] MEDS: LEVOTHYROXINE NA 25 MCG TABLET (FP) PO SCH (06:06)
--- NOTE | 2019-11-27 07:09 | PN ---
Progress Note, Physician History of Present Illness: PULMONARY ALERT,C/O SOB,MILD ABD DISCOMFORT - Current Medication List Current Medications: Active Medications Acetaminophen (Tylenol -) 650 mg PO Q4H PRN PRN Reason: PAIN 1-6 Last Admin: 11/27/19 05:51 Dose: 650 mg Documented by: Albuterol Sulfate (Ventolin Hfa Inhaler -) 2 puff IH Q6H PRN PRN Reason: SHORT OF BREATH/WHEEZING Last Admin: 11/26/19 09:24 Dose: 2 puff Documented by: Atorvastatin Calcium (Lipitor -) 20 mg PO [facility] Last Admin: 11/26/19 21:14 Dose: 20 mg Documented by: Bupropion HCl (Wellbutrin Xl -) 150 mg PO DAILY [facility] Last Admin: 11/26/19 09:23 Dose: 150 mg Documented by: Furosemide (Lasix Injection -) 60 mg IVPUSH DAILY [facility] Last Admin: 11/26/19 09:23 Dose: 60 mg Documented by: Hydralazine HCl (Apresoline -) 50 mg PO TID [facility] Last Admin: 11/27/19 05:51 Dose: 50 mg Documented by: Ertapenem 0.5 gm/ Sodium (Chloride) 50 mls @ 100 mls/hr IVPB DAILY [facility] Last Admin: 11/26/19 19:29 Dose: 100 mls/hr Documented by: Insulin Aspart (Novolog Vial Sliding Scale -) 1 vial SQ ACHS [facility]; Protocol Last Admin: 11/27/19 06:05 Dose: Not Given Documented by: Labetalol HCl (Normodyne -) 200 mg PO TID [facility] Last Admin: 11/24/19 14:19 Dose: 200 mg Documented by: Levothyroxine Sodium (Synthroid -) 25 mcg PO DAILY@0700 [facility] Last Admin: 11/27/19 06:06 Dose: 25 mcg Documented by: Mirtazapine (Remeron -) 30 mg PO [facility] Last Admin: 11/26/19 21:14 Dose: 30 mg Documented by: Nifedipine (Procardia Xl -) 90 mg PO DAILY [facility] Last Admin: 11/26/19 09:23 Dose: 90 mg Documented by: Pantoprazole Sodium (Protonix -) 20 mg PO DAILY [facility] Last Admin: 11/26/19 09:23 Dose: 20 mg Documented by: Tramadol HCl (Ultram -) 50 mg PO BID PRN PRN Reason: PAIN LEVEL 7 - 10 Last Admin: 11/26/19 21:14 Dose: 50 mg Documented by: Trazodone HCl (Desyrel -) 50 mg PO HS [facility] Last Admin: 11/26/19 21:14 Dose: 50 mg Documented by: - Objective Vital Signs: Vital Signs Temperature 98.3 F 11/27/19 06:00 Pulse Rate 89 11/27/19 06:00 Respiratory Rate 20 11/27/19 06:00 Blood Pressure 151/59 L 11/27/19 06:00 O2 Sat by Pulse Oximetry (%) 93 L 11/27/19 06:00 Constitutional: Yes: Well Nourished, Calm Eyes: Yes: WNL HENT: Yes: WNL Neck: Yes: WNL Cardiovascular: Yes: Regular Rate and Rhythm, S1, S2 Respiratory: Yes: Rales (BILATERAAL CRACKLES) Gastrointestinal: Yes: Normal Bowel Sounds, Soft Extremities: Yes: WNL Edema: Yes Labs: CBC, BMP - ....Imaging Chest X-ray: Report Reviewed, Image Reviewed Problem List - Problems (1) Acute kidney injury superimposed on chronic kidney disease Code(s): N17.9 - ACUTE KIDNEY FAILURE, UNSPECIFIED; N18.9 - CHRONIC KIDNEY DISEASE, UNSPECIFIED (2) Urinary tract infection Code(s): N39.0 - URINARY TRACT INFECTION, SITE NOT SPECIFIED Qualifiers: Urinary tract infection type: site unspecified (3) Abdominal pain Code(s): R10.9 - UNSPECIFIED ABDOMINAL PAIN Qualifiers: Abdominal location: generalized Qualified Code(s): R10.84 - Generalized abdominal pain (4) Abnormal CXR Code(s): R93.89 - ABNORMAL FINDINGS ON DX IMAGING OF OTH BODY STRUCTURES (5) Acute on chronic diastolic (congestive) heart failure Code(s): I50.33 - ACUTE ON CHRONIC DIASTOLIC (CONGESTIVE) HEART FAILURE (6) Anemia Code(s): D64.9 - ANEMIA, UNSPECIFIED (7) CHF exacerbation Code(s): I50.9 - HEART FAILURE, UNSPECIFIED (8) Dementia Code(s): F03.90 - UNSPECIFIED DEMENTIA WITHOUT BEHAVIORAL DISTURBANCE (9) Diabetes Code(s): E11.9 - TYPE 2 DIABETES MELLITUS WITHOUT COMPLICATIONS (10) HLD (hyperlipidemia) Code(s): E78.5 - HYPERLIPIDEMIA, UNSPECIFIED (11) HTN (hypertension) Code(s): I10 - ESSENTIAL (PRIMARY) HYPERTENSION (12) Pleural effusion Code(s): J90 - PLEURAL EFFUSION, NOT ELSEWHERE CLASSIFIED (13) Pulmonary HTN Code(s): I27.20 - PULMONARY HYPERTENSION, UNSPECIFIED (14) SOB (shortness of breath) Code(s): R06.02 - SHORTNESS OF BREATH Assessment/Plan IMP ACUTE HYPOXEMIC RESPIRATORY FAILURE IMPROVING ACUTE ON CHRONIC DIASTOLIC HF ABDOMINAL PAIN HTN ACUTE ON CHRONIC KIDNEY DISEASE PARKINSONS DEMENTIA DONNA NODULE ANEMIA PULMONARY HTN PERICARDIAL EFFUSION UTI PLAN SUPPLEMENTAL O2 INHALED BRONCHODILATORS CONTINUE LASIX ABX MONITOR LYTES,RENAL FUNCTION TREND H+H NORMAL TRANSFUSION THRESHOLD F/U CHEST X-RAYS F/U ECHO MONITOR PERICARDIAL EFFUSION DR CAMPA Problem List - Problems (1) Acute kidney injury superimposed on chronic kidney disease Code(s): N17.9 - ACUTE KIDNEY FAILURE, UNSPECIFIED; N18.9 - CHRONIC KIDNEY DISEASE, UNSPECIFIED (2) Urinary tract infection Code(s): N39.0 - URINARY TRACT INFECTION, SITE NOT SPECIFIED Qualifiers: Urinary tract infection type: site unspecified (3) Abdominal pain Code(s): R10.9 - UNSPECIFIED ABDOMINAL PAIN Qualifiers: Abdominal location: generalized Qualified Code(s): R10.84 - Generalized abdominal pain (4) Abnormal CXR Code(s): R93.89 - ABNORMAL FINDINGS ON DX IMAGING OF OTH BODY STRUCTURES (5) Acute on chronic diastolic (congestive) heart failure Code(s): I50.33 - ACUTE ON CHRONIC DIASTOLIC (CONGESTIVE) HEART FAILURE (6) Anemia Code(s): D64.9 - ANEMIA, UNSPECIFIED (7) CHF exacerbation Code(s): I50.9 - HEART FAILURE, UNSPECIFIED (8) Dementia Code(s): F03.90 - UNSPECIFIED DEMENTIA WITHOUT BEHAVIORAL DISTURBANCE (9) Diabetes Code(s): E11.9 - TYPE 2 DIABETES MELLITUS WITHOUT COMPLICATIONS (10) HLD (hyperlipidemia) Code(s): E78.5 - HYPERLIPIDEMIA, UNSPECIFIED (11) HTN (hypertension) Code(s): I10 - ESSENTIAL (PRIMARY) HYPERTENSION (12) Pleural effusion Code(s): J90 - PLEURAL EFFUSION, NOT ELSEWHERE CLASSIFIED (13) Pulmonary HTN Code(s): I27.20 - PULMONARY HYPERTENSION, UNSPECIFIED (14) SOB (shortness of breath) Code(s): R06.02 - SHORTNESS OF BREATH
[2019-11-27 07:59] LABS: BLOOD UREA NITROGEN 33.6 mg/dL (7-18); CALCIUM 8.6 mg/dL (8.5-10.1); CREATININE 2.2 mg/dL (0.55-1.3); MAGNESIUM 2.2 mg/dL (1.8-2.4); PHOSPHOROUS 3.2 mg/dL (2.5-4.9); POTASSIUM 3.5 mmol/L (3.5-5.1)
[2019-11-27] MEDS ORDERED: PT OWN MED DRAWER 7, Y5N ONE (08:35)
[2019-11-27] MEDS: ALBUTEROL SO4 HFA INHALER IH PRN (08:50)
[2019-11-27] MEDS: NIFEdipine E.R. 90 MG TABLET PO SCH (09:10)
[2019-11-27] MEDS: PANTOPRAZOLE 20 MG TABLET PO SCH (09:10)
[2019-11-27] MEDS: traMADol HCL 50 MG TABLET PO PRN (09:10)
[2019-11-27] MEDS: ERTAPENEM SODIUM 0.5 GM in SODIUM CHLORIDE 50 ML IVPB SCH (09:39)
[2019-11-27] MEDS: FUROSEMIDE 40 MG/4 ML INJECTABLE VIAL IVPUSH SCH (09:39)
--- NOTE | 2019-11-27 10:30 | PN ---
Progress Note (short form) - Note Progress Note: still some nausea no abdominal pain Vital Signs Period Temp Pulse Resp BP Sys/East Pulse Ox Last 24 Hr 97.7 F-98.5 F 71-89 18-20 141-168/52-77 93-99 cor-rrr lungs decreased bs at bses abd soft,nt ext no edema CBC, BMP 11/26/19 07:14 11/27/19 07:05 Microbiology 11/23/19 16:45 Blood - Peripheral Venous Blood Culture - Preliminary NO GROWTH OBTAINED AFTER 72 HOURS, INCUBATION TO CONTINUE FOR 2 DAYS. 11/23/19 16:55 Blood - Peripheral Venous Blood Culture - Preliminary NO GROWTH OBTAINED AFTER 72 HOURS, INCUBATION TO CONTINUE FOR 2 DAYS. 11/23/19 17:25 Urine - Urine - Catheterized Urine Culture - Final Escherichia Coli Esbl [employer] 11/24/19 14:10 Urine - Urine Clean Catch Legionella Antigen - Final 11/24/19 14:10 Urine - Urine Clean Catch Streptococcus pneumoniae Antigen (M - Final a/p ecoli esbl uti- ertapenem day 32 chf improved asymmetric leg edema- improved sandi/ckd pericardial effusion-per cardiology abx adjusted for renal insufficiency Problem List - Problems (1) Urinary tract infection Code(s): N39.0 - URINARY TRACT INFECTION, SITE NOT SPECIFIED Qualifiers: Urinary tract infection type: site unspecified (2) SOB (shortness of breath) Code(s): R06.02 - SHORTNESS OF BREATH (3) Acute kidney injury superimposed on CKD Code(s): N17.9 - ACUTE KIDNEY FAILURE, UNSPECIFIED; N18.9 - CHRONIC KIDNEY DISEASE, UNSPECIFIED
--- NOTE | 2019-11-27 11:29 | PN ---
Progress Note, Physician History of Present Illness: 79 y/o female with a significant PMHx of Dementia,Parkinsin's Disease, HTN, CHF, DM, CKD, Diveticulosis. Who presents to the ED with her daughter for abdominal pain x 7 days. Patient was seen by her PMD for dysuria, placed on Cipro for UTI and Iron pills for Anemia. Per the daughter the patient would not take the medications and has a poor appetite. She reorts the patient has O2 at home but does not use it. Per the daughter she denies patient having fever, chills, cough, SOB, CP, palpitations, N/V. No recent sick contacts or travel. SOB THIS AM--NOW COMFORTABLE - Current Medication List Current Medications: Active Medications Acetaminophen (Tylenol -) 650 mg PO Q4H PRN PRN Reason: PAIN 1-6 Last Admin: 11/27/19 05:51 Dose: 650 mg Documented by: Albuterol Sulfate (Ventolin Hfa Inhaler -) 2 puff IH Q6H PRN PRN Reason: SHORT OF BREATH/WHEEZING Last Admin: 11/27/19 08:50 Dose: 2 puff Documented by: Atorvastatin Calcium (Lipitor -) 20 mg PO HS [facility] Last Admin: 11/26/19 21:14 Dose: 20 mg Documented by: Bupropion HCl (Wellbutrin Xl -) 150 mg PO DAILY [facility] Last Admin: 11/27/19 09:10 Dose: 150 mg Documented by: Furosemide (Lasix Injection -) 60 mg IVPUSH DAILY [facility] Last Admin: 11/27/19 09:39 Dose: 60 mg Documented by: Hydralazine HCl (Apresoline -) 50 mg PO TID [facility] Last Admin: 11/27/19 05:51 Dose: 50 mg Documented by: Ertapenem 0.5 gm/ Sodium (Chloride) 50 mls @ 100 mls/hr IVPB DAILY [facility] Last Admin: 11/27/19 09:39 Dose: 100 mls/hr Documented by: Insulin Aspart (Novolog Vial Sliding Scale -) 1 vial SQ ACHS [facility]; Protocol Last Admin: 11/27/19 11:12 Dose: Not Given Documented by: Labetalol HCl (Normodyne -) 200 mg PO TID [facility] Last Admin: 11/24/19 14:19 Dose: 200 mg Documented by: Levothyroxine Sodium (Synthroid -) 25 mcg PO DAILY@0700 [facility] Last Admin: 11/27/19 06:06 Dose: 25 mcg Documented by: Mirtazapine (Remeron -) 30 mg PO [facility] Last Admin: 11/26/19 21:14 Dose: 30 mg Documented by: Nifedipine (Procardia Xl -) 90 mg PO DAILY [facility] Last Admin: 11/27/19 09:10 Dose: 90 mg Documented by: Pantoprazole Sodium (Protonix -) 20 mg PO DAILY [facility] Last Admin: 11/27/19 09:10 Dose: 20 mg Documented by: Tramadol HCl (Ultram -) 50 mg PO BID PRN PRN Reason: PAIN LEVEL 7 - 10 Last Admin: 11/27/19 09:10 Dose: 50 mg Documented by: Trazodone HCl (Desyrel -) 50 mg PO [facility] Last Admin: 11/26/19 21:14 Dose: 50 mg Documented by: - Objective Vital Signs: Vital Signs Temperature 98.5 F 11/27/19 08:00 Pulse Rate 79 11/27/19 08:00 Respiratory Rate 20 11/27/19 09:00 Blood Pressure 158/68 11/27/19 08:00 O2 Sat by Pulse Oximetry (%) 95 11/27/19 09:00 Cardiovascular: Yes: S1, S2 Respiratory: Yes: Diminished, On Nasal O2, Rales Gastrointestinal: Yes: Normal Bowel Sounds, Soft Labs: CBC, BMP 11/26/19 07:14 11/27/19 07:05 INR, PTT INR 1.08 (0.83-1.09) 11/23/19 16:45 Problem List - Problems (1) Acute kidney injury superimposed on chronic kidney disease Assessment/Plan: MONITOR ON DIURETICS--2.2 TODAY RENAL CONSULT APPRECIATED Code(s): N17.9 - ACUTE KIDNEY FAILURE, UNSPECIFIED; N18.9 - CHRONIC KIDNEY DISEASE, UNSPECIFIED (2) Abdominal pain Assessment/Plan: MAYBE DUE TO UTI' ct noted ppi gi consult appreciated Code(s): R10.9 - UNSPECIFIED ABDOMINAL PAIN Qualifiers: Abdominal location: generalized Qualified Code(s): R10.84 - Generalized abdominal pain (3) Anemia Assessment/Plan: drop from baseline follow trends ppi gi consult Code(s): D64.9 - ANEMIA, UNSPECIFIED (4) CHF (congestive heart failure) Assessment/Plan: with effusions pulm on board diuretics--cxr noted cardio and renal opinion appreciated Code(s): I50.9 - HEART FAILURE, UNSPECIFIED Qualifiers: (5) Diabetes Assessment/Plan: bgm with ss Code(s): E11.9 - TYPE 2 DIABETES MELLITUS WITHOUT COMPLICATIONS (6) HTN (hypertension) Assessment/Plan: Vital Signs Period Temp Pulse Resp BP Sys/East Pulse Ox Last 24 Hr 97.4 F-98.1 F 64-74 16-20 111-216/78-96 96-100 Resume nifedepine Code(s): I10 - ESSENTIAL (PRIMARY) HYPERTENSION (7) Pericardial effusion Assessment/Plan: echo noted--no signs of tamponade cardio on board TS consult Code(s): I31.3 - PERICARDIAL EFFUSION (NONINFLAMMATORY) (8) Pleural effusion Assessment/Plan: on diuretics Code(s): J90 - PLEURAL EFFUSION, NOT ELSEWHERE CLASSIFIED (9) Urinary tract infection Assessment/Plan: Microbiology 11/23/19 16:45 Blood - Peripheral Venous Blood Culture - Preliminary NO GROWTH OBTAINED AFTER 72 HOURS, INCUBATION TO CONTINUE FOR 2 DAYS. 11/23/19 16:55 Blood - Peripheral Venous Blood Culture - Preliminary NO GROWTH OBTAINED AFTER 72 HOURS, INCUBATION TO CONTINUE FOR 2 DAYS. 11/23/19 17:25 Urine - Urine - Catheterized Urine Culture - Final Escherichia Coli Esbl Tail Ripper 11/24/19 14:10 Urine - Urine Clean Catch Legionella Antigen - Final 11/24/19 14:10 Urine - Urine Clean Catch Streptococcus pneumoniae Antigen (M - Final Orders 11/26/19 18:45 Ertapenem Sodium [Invanz -] 0.5 gm Sodium Chloride [Normal Saline 50 ml Minibag] 50 ml IVPB DAILY Code(s): N39.0 - URINARY TRACT INFECTION, SITE NOT SPECIFIED Qualifiers: Urinary tract infection type: site unspecified (10) SOB (shortness of breath) Assessment/Plan: maybe due chf on lasix monitor Code(s): R06.02 - SHORTNESS OF BREATH
--- NOTE | 2019-11-27 11:47 | PN ---
Progress Note, Physician History of Present Illness: Pt seen and examined at bedside. She is awake and appears more comfortable. She feels that her breathing is improved. - Current Medication List Current Medications: Active Medications Acetaminophen (Tylenol -) 650 mg PO Q4H PRN PRN Reason: PAIN 1-6 Last Admin: 11/27/19 05:51 Dose: 650 mg Documented by: Albuterol Sulfate (Ventolin Hfa Inhaler -) 2 puff IH Q6H PRN PRN Reason: SHORT OF BREATH/WHEEZING Last Admin: 11/27/19 08:50 Dose: 2 puff Documented by: Atorvastatin Calcium (Lipitor -) 20 mg PO [facility] Last Admin: 11/26/19 21:14 Dose: 20 mg Documented by: Bupropion HCl (Wellbutrin Xl -) 150 mg PO DAILY [facility] Last Admin: 11/27/19 09:10 Dose: 150 mg Documented by: Furosemide (Lasix Injection -) 60 mg IVPUSH DAILY [facility] Last Admin: 11/27/19 09:39 Dose: 60 mg Documented by: Hydralazine HCl (Apresoline -) 50 mg PO TID [facility] Last Admin: 11/27/19 05:51 Dose: 50 mg Documented by: Ertapenem 0.5 gm/ Sodium (Chloride) 50 mls @ 100 mls/hr IVPB DAILY [facility] Last Admin: 11/27/19 09:39 Dose: 100 mls/hr Documented by: Insulin Aspart (Novolog Vial Sliding Scale -) 1 vial SQ ACHS [facility]; Protocol Last Admin: 11/27/19 11:12 Dose: Not Given Documented by: Labetalol HCl (Normodyne -) 200 mg PO TID [facility] Last Admin: 11/24/19 14:19 Dose: 200 mg Documented by: Levothyroxine Sodium (Synthroid -) 25 mcg PO DAILY@0700 [facility] Last Admin: 11/27/19 06:06 Dose: 25 mcg Documented by: Mirtazapine (Remeron -) 30 mg PO [facility] Last Admin: 11/26/19 21:14 Dose: 30 mg Documented by: Nifedipine (Procardia Xl -) 90 mg PO DAILY [facility] Last Admin: 11/27/19 09:10 Dose: 90 mg Documented by: Pantoprazole Sodium (Protonix -) 20 mg PO DAILY [facility] Last Admin: 11/27/19 09:10 Dose: 20 mg Documented by: Tramadol HCl (Ultram -) 50 mg PO BID PRN PRN Reason: PAIN LEVEL 7 - 10 Last Admin: 11/27/19 09:10 Dose: 50 mg Documented by: Trazodone HCl (Desyrel -) 50 mg PO HS [facility] Last Admin: 11/26/19 21:14 Dose: 50 mg Documented by: - Objective Vital Signs: Vital Signs Temperature 98.5 F 11/27/19 08:00 Pulse Rate 79 11/27/19 08:00 Respiratory Rate 20 11/27/19 09:00 Blood Pressure 158/68 11/27/19 08:00 O2 Sat by Pulse Oximetry (%) 95 11/27/19 09:00 Constitutional: Yes: Calm Eyes: Yes: Conjunctiva Clear HENT: Yes: Atraumatic Neck: Yes: Supple Cardiovascular: Yes: S1, S2 Respiratory: Yes: CTA Bilaterally Gastrointestinal: Yes: Soft Genitourinary: Yes: WNL Musculoskeletal: Yes: WNL Edema: Yes Edema: LLE: 1+, RLE: 1+ Integumentary: Yes: WNL Psychiatric: Yes: Oriented Labs: CBC, BMP 11/26/19 07:14 11/27/19 07:05 INR, PTT INR 1.08 (0.83-1.09) 11/23/19 16:45 Problem List - Problems (1) JASPER (acute kidney injury) Code(s): N17.9 - ACUTE KIDNEY FAILURE, UNSPECIFIED (2) Acute kidney injury superimposed on chronic kidney disease Code(s): N17.9 - ACUTE KIDNEY FAILURE, UNSPECIFIED; N18.9 - CHRONIC KIDNEY DISEASE, UNSPECIFIED (3) CHF (congestive heart failure) Code(s): I50.9 - HEART FAILURE, UNSPECIFIED Qualifiers: (4) CHF exacerbation Code(s): I50.9 - HEART FAILURE, UNSPECIFIED (5) CKD (chronic kidney disease) Code(s): N18.9 - CHRONIC KIDNEY DISEASE, UNSPECIFIED (6) Dementia Code(s): F03.90 - UNSPECIFIED DEMENTIA WITHOUT BEHAVIORAL DISTURBANCE (7) Diverticulosis Code(s): K57.90 - DVRTCLOS OF INTEST, PART UNSP, W/O PERF OR ABSCESS W/O BLEED Assessment/Plan Current Medications Generic Name Dose Route Start Last Admin Trade Name Freq PRN Reason Stop Dose Admin Acetaminophen 650 mg 11/24/19 15:25 11/27/19 05:51 Tylenol - PO 650 mg Q4H PRN Administration PAIN 1-6 Albuterol Sulfate 2 puff 11/23/19 20:02 11/27/19 08:50 Ventolin Hfa Inhaler - IH 2 puff Q6H PRN Administration SHORT OF BREATH/WHEEZING Atorvastatin Calcium 20 mg 11/24/19 22:00 11/26/19 21:14 Lipitor - PO 20 mg HS [facility] Administration Bupropion HCl 150 mg 11/24/19 10:00 11/27/19 09:10 Wellbutrin Xl - PO 150 mg DAILY [facility] Administration Furosemide 60 mg 11/25/19 11:30 11/27/19 09:39 Lasix Injection - IVPUSH 60 mg DAILY [facility] Administration Hydralazine HCl 50 mg 11/24/19 14:00 11/27/19 05:51 Apresoline - PO 50 mg TID [facility] Administration Ertapenem 0.5 gm/ Sodium 50 mls @ 100 mls/hr 11/26/19 18:45 11/27/19 09:39 Chloride IVPB 100 mls/hr DAILY [facility] Administration Insulin Aspart 1 vial 11/24/19 11:00 11/27/19 11:12 Novolog Vial Sliding Scale - SQ Not Given ACHS [facility] Protocol Labetalol HCl 200 mg 11/24/19 14:00 11/24/19 14:19 Normodyne - PO 200 mg TID [facility] Administration Levothyroxine Sodium 25 mcg 11/24/19 07:00 11/27/19 06:06 Synthroid - PO 25 mcg DAILY@0700 [facility] Administration Mirtazapine 30 mg 11/24/19 22:00 11/26/19 21:14 Remeron - PO 30 mg HS [facility] Administration Nifedipine 90 mg 11/25/19 11:30 11/27/19 09:10 Procardia Xl - PO 90 mg DAILY [facility] Administration Pantoprazole Sodium 20 mg 11/25/19 10:00 11/27/19 09:10 Protonix - PO 20 mg DAILY [facility] Administration Tramadol HCl 50 mg 11/25/19 14:07 11/27/19 09:10 Ultram - PO 50 mg BID PRN Administration PAIN LEVEL 7 - 10 Trazodone HCl 50 mg 11/24/19 22:00 11/26/19 21:14 Desyrel - PO 50 mg HS [facility] Administration Impression 1. JASPER 2. CKD 3. HLD 4. diverticulosis 5. HTN 6. DM 7. proteinuria 8. hypoalbuminemia 9. UTI 10. pleural effusion 11. chf 12. pericardial effusion without tamponade 13. fluid overload Impression - cont lasix - cardio input appreciated - monitor bp - cont bp meds - monitor on tele - arb on hold until renal function stabilizes - cont abx
[2019-11-27 12:17] LABS: BASO % 0.7 % (0-2.0); EOS % 5.1 % (0-4.5); HEMATOCRIT 24.9 % (32.4-45.2); HEMOGLOBIN 8.2 GM/dL (10.7-15.3); LYMPH % 6.1 % (8-40); MCH 26.9 pg (25.7-33.7); MCHC 32.9 g/dl (32.0-36.0); MEAN CELL VOLUME 81.7 fl (80-96); MEAN PLT VOLUME 7.1 fl (7.5-11.1); MONO % 9.1 % (3.8-10.2); PLATELET COUNT 462 K/MM3 (134-434); RBC 3.05 M/mm3 (3.60-5.2); RDW 17.9 % (11.6-15.6); WHITE BLOOD COUNT 7.8 K/mm3 (4.0-10.0)
--- NOTE | 2019-11-27 15:47 | PN ---
Progress Note, Physician Chief Complaint: Cardiology FU No dyspnea Telem NSR History of Present Illness: 79-year-old female with dementia, diabetes, hypertension, hyperlipidemia, Parkinson disease, diverticulosis, lower GI bleed, diastolic heart failure, frequent admissions for abdominal pain and fecal impaction and pleural effusions, normal left ventricular systolic function on echo 05/03/2018 without significant valvular abnormalities, bradycardia on labetalol (discontinued), now presenting with abdominal pain and shortness of breath. Fluid overloaded. Echocardiogram with moderate to large pericardial effusion. Normal EF. No tamponade. - Current Medication List Current Medications: Active Medications Acetaminophen (Tylenol -) 650 mg PO Q4H PRN PRN Reason: PAIN 1-6 Last Admin: 11/27/19 05:51 Dose: 650 mg Documented by: Albuterol Sulfate (Ventolin Hfa Inhaler -) 2 puff IH Q6H PRN PRN Reason: SHORT OF BREATH/WHEEZING Last Admin: 11/27/19 08:50 Dose: 2 puff Documented by: Atorvastatin Calcium (Lipitor -) 20 mg PO HS [facility] Last Admin: 11/26/19 21:14 Dose: 20 mg Documented by: Bupropion HCl (Wellbutrin Xl -) 150 mg PO DAILY [facility] Last Admin: 11/27/19 09:10 Dose: 150 mg Documented by: Furosemide (Lasix Injection -) 60 mg IVPUSH DAILY [facility] Last Admin: 11/27/19 09:39 Dose: 60 mg Documented by: Hydralazine HCl (Apresoline -) 50 mg PO TID [facility] Last Admin: 11/27/19 14:35 Dose: 50 mg Documented by: Ertapenem 0.5 gm/ Sodium (Chloride) 50 mls @ 100 mls/hr IVPB DAILY [facility] Last Admin: 11/27/19 09:39 Dose: 100 mls/hr Documented by: Insulin Aspart (Novolog Vial Sliding Scale -) 1 vial SQ ACHS [facility]; Protocol Last Admin: 11/27/19 11:12 Dose: Not Given Documented by: Labetalol HCl (Normodyne -) 200 mg PO TID [facility] Last Admin: 11/24/19 14:19 Dose: 200 mg Documented by: Levothyroxine Sodium (Synthroid -) 25 mcg PO DAILY@0700 [facility] Last Admin: 11/27/19 06:06 Dose: 25 mcg Documented by: Mirtazapine (Remeron -) 30 mg PO [facility] Last Admin: 11/26/19 21:14 Dose: 30 mg Documented by: Nifedipine (Procardia Xl -) 90 mg PO DAILY [facility] Last Admin: 11/27/19 09:10 Dose: 90 mg Documented by: Pantoprazole Sodium (Protonix -) 20 mg PO DAILY [facility] Last Admin: 11/27/19 09:10 Dose: 20 mg Documented by: Tramadol HCl (Ultram -) 50 mg PO BID PRN PRN Reason: PAIN LEVEL 7 - 10 Last Admin: 11/27/19 09:10 Dose: 50 mg Documented by: Trazodone HCl (Desyrel -) 50 mg PO [facility] Last Admin: 11/26/19 21:14 Dose: 50 mg Documented by: - Objective Vital Signs: Vital Signs Temperature 98.3 F 11/27/19 13:56 Pulse Rate 81 11/27/19 13:56 Respiratory Rate 20 11/27/19 13:56 Blood Pressure 137/60 11/27/19 13:56 O2 Sat by Pulse Oximetry (%) 95 11/27/19 09:00 Constitutional: Yes: Well Nourished Eyes: Yes: Conjunctiva Clear HENT: Yes: Atraumatic Neck: Yes: Supple, Trachea Midline Cardiovascular: Yes: Regular Rate and Rhythm. No: JVD Respiratory: Yes: Regular, CTA Bilaterally Gastrointestinal: Yes: Normal Bowel Sounds Edema: No Labs: CBC, BMP 11/27/19 07:05 11/27/19 07:05 INR, PTT INR 1.08 (0.83-1.09) 11/23/19 16:45 Problem List - Problems (1) JASPER (acute kidney injury) Code(s): N17.9 - ACUTE KIDNEY FAILURE, UNSPECIFIED (2) Acute kidney injury superimposed on CKD Code(s): N17.9 - ACUTE KIDNEY FAILURE, UNSPECIFIED; N18.9 - CHRONIC KIDNEY DISEASE, UNSPECIFIED Assessment/Plan The patient is a 79-year-old female with dementia, diabetes, hypertension, hyperlipidemia, Parkinson disease, diverticulosis, lower GI bleed, diastolic heart failure, frequent admissions for abdominal pain and fecal impaction and pleural effusions, normal left ventricular systolic function on echo 05/03/2018 without significant valvular abnormalities, bradycardia on labetalol, now presenting with abdominal pain and shortness of breath. Fluid overloaded. Pericardial effusion with preserved biventricular function and no sings of tamponade. Transition to oral diuretic. No indication for pericardial tamponade. Would differ pericardiocentesis.
[2019-11-27] MEDS: MIRTAZAPINE 30 MG TABLET PO SCH (22:19)
[2019-11-27] MEDS: traZODone HCL 50 MG TABLET (FP) PO SCH (22:19)
[2019-11-27] MEDS: ATORVASTATIN CA 20 MG TABLET (FP) PO SCH (22:19)
[2019-11-28] MEDS: INSULIN SLIDING SCALE (NOVOLOG) 1 VIAL SQ SCH ×4 (06:23→22:13)
[2019-11-28] MEDS: hydrALAZINE HCL 50 MG TABLET (FP) PO SCH ×5 (06:24→22:12)
[2019-11-28] MEDS: LEVOTHYROXINE NA 25 MCG TABLET (FP) PO SCH (06:24)
[2019-11-28 08:50] LABS: HEMATOCRIT 24.8 % (32.4-45.2); HEMOGLOBIN 8.1 GM/dL (10.7-15.3); MCH 26.7 pg (25.7-33.7); MCHC 32.7 g/dl (32.0-36.0); MEAN CELL VOLUME 81.5 fl (80-96); PLATELET COUNT 444 K/MM3 (134-434); RBC 3.05 M/mm3 (3.60-5.2); RDW 18.1 % (11.6-15.6); WHITE BLOOD COUNT 11.7 K/mm3 (4.0-10.0)
[2019-11-28 09:10] LABS: BILIRUBIN,TOTAL 0.4 mg/dL (0.2-1); BLOOD UREA NITROGEN 36.1 mg/dL (7-18); CALCIUM 8.6 mg/dL (8.5-10.1); POTASSIUM 3.8 mmol/L (3.5-5.1); TOT PROT 6.2 g/dl (6.4-8.2)
[2019-11-28] MEDS ORDERED: PT OWN MED DRAWER 7, Y5N ONE ×4 (09:20→20:42)
[2019-11-28] MEDS: FUROSEMIDE 40 MG/4 ML INJECTABLE VIAL IVPUSH SCH (09:36)
[2019-11-28] MEDS: NIFEdipine E.R. 90 MG TABLET PO SCH (09:36)
[2019-11-28] MEDS: PANTOPRAZOLE 20 MG TABLET PO SCH (09:36)
--- NOTE | 2019-11-28 11:41 | PN ---
Progress Note, Physician History of Present Illness: seen and examined today in nad. no overnight events. no new complaints. states she is feeling better. - Current Medication List Current Medications: Active Medications Acetaminophen (Tylenol -) 650 mg PO Q4H PRN PRN Reason: PAIN 1-6 Last Admin: 11/27/19 05:51 Dose: 650 mg Documented by: Albuterol Sulfate (Ventolin Hfa Inhaler -) 2 puff IH Q6H PRN PRN Reason: SHORT OF BREATH/WHEEZING Last Admin: 11/27/19 08:50 Dose: 2 puff Documented by: Atorvastatin Calcium (Lipitor -) 20 mg PO [facility] Last Admin: 11/27/19 22:19 Dose: 20 mg Documented by: Bupropion HCl (Wellbutrin Xl -) 150 mg PO DAILY [facility] Last Admin: 11/28/19 09:36 Dose: 150 mg Documented by: Furosemide (Lasix Injection -) 60 mg IVPUSH DAILY [facility] Last Admin: 11/28/19 09:36 Dose: 60 mg Documented by: Hydralazine HCl (Apresoline -) 50 mg PO TID [facility] Last Admin: 11/28/19 06:24 Dose: 50 mg Documented by: Ertapenem 0.5 gm/ Sodium (Chloride) 50 mls @ 100 mls/hr IVPB DAILY [facility] Last Admin: 11/27/19 09:39 Dose: 100 mls/hr Documented by: Insulin Aspart (Novolog Vial Sliding Scale -) 1 vial SQ ACHS [facility]; Protocol Last Admin: 11/28/19 06:23 Dose: Not Given Documented by: Labetalol HCl (Normodyne -) 200 mg PO TID [facility] Last Admin: 11/24/19 14:19 Dose: 200 mg Documented by: Levothyroxine Sodium (Synthroid -) 25 mcg PO DAILY@0700 [facility] Last Admin: 11/28/19 06:24 Dose: 25 mcg Documented by: Mirtazapine (Remeron -) 30 mg PO [facility] Last Admin: 11/27/19 22:19 Dose: 30 mg Documented by: Nifedipine (Procardia Xl -) 90 mg PO DAILY [facility] Last Admin: 11/28/19 09:36 Dose: 90 mg Documented by: Pantoprazole Sodium (Protonix -) 20 mg PO DAILY [facility] Last Admin: 11/28/19 09:36 Dose: 20 mg Documented by: Tramadol HCl (Ultram -) 50 mg PO BID PRN PRN Reason: PAIN LEVEL 7 - 10 Last Admin: 11/27/19 09:10 Dose: 50 mg Documented by: Trazodone HCl (Desyrel -) 50 mg PO HS [facility] Last Admin: 11/27/19 22:19 Dose: 50 mg Documented by: - Objective Vital Signs: Vital Signs Temperature 98.4 F 11/28/19 09:48 Pulse Rate 80 11/28/19 09:48 Respiratory Rate 22 H 11/28/19 09:48 Blood Pressure 188/70 H 11/28/19 09:48 O2 Sat by Pulse Oximetry (%) 97 11/28/19 09:48 Constitutional: Yes: No Distress, Calm Eyes: Yes: Conjunctiva Clear, EOM Intact HENT: Yes: Atraumatic, Normocephalic Neck: Yes: Supple, Trachea Midline Cardiovascular: Yes: Regular Rate and Rhythm, S1, S2. No: Bradycardia, Tachycardia, Pulse Irregular, Bruit, JVD, Gallop, Murmur, Rub, S3, S4, Varicosities Respiratory: Yes: Regular, Diminished. No: Rales, Rhonchi, SOB, Wheezes Gastrointestinal: Yes: Normal Bowel Sounds, Soft. No: Distention, Tenderness Extremities: Yes: WNL Edema: No Peripheral Pulses WNL: Yes Peripheral Pulses: Left Doralis Pedis: 2+, Right Dorsalis Pedis: 2+ Neurological: Yes: Alert, Oriented Psychiatric: Yes: Alert, Oriented Labs: CBC, BMP 11/28/19 08:10 11/28/19 08:10 INR, PTT INR 1.08 (0.83-1.09) 11/23/19 16:45 - ....Imaging Chest X-ray: Report Reviewed, Image Reviewed EKG: Report Reviewed, Image Reviewed Other: Report Reviewed, Image Reviewed (tele-sinus arrhythmia, artifact) Assessment/Plan The patient is a 79-year-old female with dementia, diabetes, hypertension, hyperlipidemia, Parkinson disease, diverticulosis, lower GI bleed, diastolic heart failure, frequent admissions for abdominal pain and fecal impaction and pleural effusions, normal left ventricular systolic function on echo 05/03/2018 without significant valvular abnormalities, bradycardia on labetalol, now presenting with abdominal pain and shortness of breath. Fluid overloaded. Pericardial effusion with preserved biventricular function and no sings of tamponade. -No indication for pericardial tamponade. Would differ pericardiocentesis. -Transition to oral diuretic. -confirm if home dose of Lasix was 80mg TID as documented -can consider change to Torsemide 40mg daily
[2019-11-28] MEDS: ERTAPENEM SODIUM 0.5 GM in SODIUM CHLORIDE 50 ML IVPB SCH (12:13)
--- NOTE | 2019-11-28 12:19 | PN ---
Progress Note, Physician History of Present Illness: pulmonary alert,feeling better,less dyspneic,on nasal o2 - Current Medication List Current Medications: Active Medications Acetaminophen (Tylenol -) 650 mg PO Q4H PRN PRN Reason: PAIN 1-6 Last Admin: 11/27/19 05:51 Dose: 650 mg Documented by: Albuterol Sulfate (Ventolin Hfa Inhaler -) 2 puff IH Q6H PRN PRN Reason: SHORT OF BREATH/WHEEZING Last Admin: 11/27/19 08:50 Dose: 2 puff Documented by: Atorvastatin Calcium (Lipitor -) 20 mg PO [facility] Last Admin: 11/27/19 22:19 Dose: 20 mg Documented by: Bupropion HCl (Wellbutrin Xl -) 150 mg PO DAILY [facility] Last Admin: 11/28/19 09:36 Dose: 150 mg Documented by: Furosemide (Lasix Injection -) 60 mg IVPUSH DAILY [facility] Last Admin: 11/28/19 09:36 Dose: 60 mg Documented by: Hydralazine HCl (Apresoline -) 50 mg PO TID [facility] Last Admin: 11/28/19 06:24 Dose: 50 mg Documented by: Ertapenem 0.5 gm/ Sodium (Chloride) 50 mls @ 100 mls/hr IVPB DAILY [facility] Last Admin: 11/28/19 12:13 Dose: 100 mls/hr Documented by: Insulin Aspart (Novolog Vial Sliding Scale -) 1 vial SQ [facility]; Protocol Last Admin: 11/28/19 12:13 Dose: Not Given Documented by: Labetalol HCl (Normodyne -) 200 mg PO TID [facility] Last Admin: 11/24/19 14:19 Dose: 200 mg Documented by: Levothyroxine Sodium (Synthroid -) 25 mcg PO DAILY@0700 [facility] Last Admin: 11/28/19 06:24 Dose: 25 mcg Documented by: Mirtazapine (Remeron -) 30 mg PO [facility] Last Admin: 11/27/19 22:19 Dose: 30 mg Documented by: Nifedipine (Procardia Xl -) 90 mg PO DAILY [facility] Last Admin: 11/28/19 09:36 Dose: 90 mg Documented by: Pantoprazole Sodium (Protonix -) 20 mg PO DAILY [facility] Last Admin: 11/28/19 09:36 Dose: 20 mg Documented by: Tramadol HCl (Ultram -) 50 mg PO BID PRN PRN Reason: PAIN LEVEL 7 - 10 Last Admin: 11/27/19 09:10 Dose: 50 mg Documented by: Trazodone HCl (Desyrel -) 50 mg PO HS [facility] Last Admin: 11/27/19 22:19 Dose: 50 mg Documented by: - Objective Vital Signs: Vital Signs Temperature 98.4 F 11/28/19 09:48 Pulse Rate 80 11/28/19 09:48 Respiratory Rate 22 H 11/28/19 09:48 Blood Pressure 188/70 H 11/28/19 09:48 O2 Sat by Pulse Oximetry (%) 97 11/28/19 09:48 Constitutional: Yes: Well Nourished, Calm Eyes: Yes: WNL HENT: Yes: WNL Neck: Yes: WNL Cardiovascular: Yes: Regular Rate and Rhythm, S1, S2 Respiratory: Yes: Rales (jessica rales) Gastrointestinal: Yes: Normal Bowel Sounds, Soft Extremities: Yes: WNL Edema: No Labs: CBC, BMP 11/28/19 08:10 11/28/19 08:10 - ....Imaging Chest X-ray: Report Reviewed, Image Reviewed (increased pvc,bilateral pleural effusions) Problem List - Problems (1) Acute kidney injury superimposed on chronic kidney disease Code(s): N17.9 - ACUTE KIDNEY FAILURE, UNSPECIFIED; N18.9 - CHRONIC KIDNEY DISEASE, UNSPECIFIED (2) Urinary tract infection Code(s): N39.0 - URINARY TRACT INFECTION, SITE NOT SPECIFIED Qualifiers: Urinary tract infection type: site unspecified (3) Abdominal pain Code(s): R10.9 - UNSPECIFIED ABDOMINAL PAIN Qualifiers: Abdominal location: generalized Qualified Code(s): R10.84 - Generalized abdominal pain (4) Abnormal CXR Code(s): R93.89 - ABNORMAL FINDINGS ON DX IMAGING OF OTH BODY STRUCTURES (5) Acute on chronic diastolic (congestive) heart failure Code(s): I50.33 - ACUTE ON CHRONIC DIASTOLIC (CONGESTIVE) HEART FAILURE (6) Anemia Code(s): D64.9 - ANEMIA, UNSPECIFIED (7) CHF exacerbation Code(s): I50.9 - HEART FAILURE, UNSPECIFIED (8) Dementia Code(s): F03.90 - UNSPECIFIED DEMENTIA WITHOUT BEHAVIORAL DISTURBANCE (9) Diabetes Code(s): E11.9 - TYPE 2 DIABETES MELLITUS WITHOUT COMPLICATIONS (10) HLD (hyperlipidemia) Code(s): E78.5 - HYPERLIPIDEMIA, UNSPECIFIED (11) HTN (hypertension) Code(s): I10 - ESSENTIAL (PRIMARY) HYPERTENSION (12) Pleural effusion Code(s): J90 - PLEURAL EFFUSION, NOT ELSEWHERE CLASSIFIED (13) Pulmonary HTN Code(s): I27.20 - PULMONARY HYPERTENSION, UNSPECIFIED (14) SOB (shortness of breath) Code(s): R06.02 - SHORTNESS OF BREATH Assessment/Plan IMP ACUTE HYPOXEMIC RESPIRATORY FAILURE IMPROVING ACUTE ON CHRONIC DIASTOLIC HF ABDOMINAL PAIN HTN ACUTE ON CHRONIC KIDNEY DISEASE PARKINSONS DEMENTIA DONNA NODULE ANEMIA PULMONARY HTN PERICARDIAL EFFUSION UTI PLAN SUPPLEMENTAL O2 INHALED BRONCHODILATORS CONTINUE LASIX ABX MONITOR LYTES,RENAL FUNCTION TREND H+H NORMAL TRANSFUSION THRESHOLD F/U CHEST X-RAYS F/U ECHO MONITOR PERICARDIAL EFFUSION DR CAMPA Problem List - Problems (1) Acute kidney injury superimposed on chronic kidney disease Code(s): N17.9 - ACUTE KIDNEY FAILURE, UNSPECIFIED; N18.9 - CHRONIC KIDNEY DISEASE, UNSPECIFIED (2) Urinary tract infection Code(s): N39.0 - URINARY TRACT INFECTION, SITE NOT SPECIFIED Qualifiers: Urinary tract infection type: site unspecified (3) Abdominal pain Code(s): R10.9 - UNSPECIFIED ABDOMINAL PAIN Qualifiers: Abdominal location: generalized Qualified Code(s): R10.84 - Generalized abdominal pain (4) Abnormal CXR Code(s): R93.89 - ABNORMAL FINDINGS ON DX IMAGING OF OTH BODY STRUCTURES (5) Acute on chronic diastolic (congestive) heart failure Code(s): I50.33 - ACUTE ON CHRONIC DIASTOLIC (CONGESTIVE) HEART FAILURE (6) Anemia Code(s): D64.9 - ANEMIA, UNSPECIFIED (7) CHF exacerbation Code(s): I50.9 - HEART FAILURE, UNSPECIFIED (8) Dementia Code(s): F03.90 - UNSPECIFIED DEMENTIA WITHOUT BEHAVIORAL DISTURBANCE (9) Diabetes Code(s): E11.9 - TYPE 2 DIABETES MELLITUS WITHOUT COMPLICATIONS (10) HLD (hyperlipidemia) Code(s): E78.5 - HYPERLIPIDEMIA, UNSPECIFIED (11) HTN (hypertension) Code(s): I10 - ESSENTIAL (PRIMARY) HYPERTENSION (12) Pleural effusion Code(s): J90 - PLEURAL EFFUSION, NOT ELSEWHERE CLASSIFIED (13) Pulmonary HTN Code(s): I27.20 - PULMONARY HYPERTENSION, UNSPECIFIED (14) SOB (shortness of breath) Code(s): R06.02 - SHORTNESS OF BREATH
--- NOTE | 2019-11-28 12:57 | PN ---
Progress Note, Physician History of Present Illness: Pt seen and examined at bedside. She is awake and appears comfortable. She feels that her breathing is improved. - Current Medication List Current Medications: Active Medications Acetaminophen (Tylenol -) 650 mg PO Q4H PRN PRN Reason: PAIN 1-6 Last Admin: 11/27/19 05:51 Dose: 650 mg Documented by: Albuterol Sulfate (Ventolin Hfa Inhaler -) 2 puff IH Q6H PRN PRN Reason: SHORT OF BREATH/WHEEZING Last Admin: 11/27/19 08:50 Dose: 2 puff Documented by: Atorvastatin Calcium (Lipitor -) 20 mg PO [facility] Last Admin: 11/27/19 22:19 Dose: 20 mg Documented by: Bupropion HCl (Wellbutrin Xl -) 150 mg PO DAILY [facility] Last Admin: 11/28/19 09:36 Dose: 150 mg Documented by: Furosemide (Lasix Injection -) 60 mg IVPUSH DAILY [facility] Last Admin: 11/28/19 09:36 Dose: 60 mg Documented by: Hydralazine HCl (Apresoline -) 50 mg PO TID [facility] Last Admin: 11/28/19 06:24 Dose: 50 mg Documented by: Ertapenem 0.5 gm/ Sodium (Chloride) 50 mls @ 100 mls/hr IVPB DAILY [facility] Last Admin: 11/28/19 12:13 Dose: 100 mls/hr Documented by: Insulin Aspart (Novolog Vial Sliding Scale -) 1 vial SQ ACHS [facility]; Protocol Last Admin: 11/28/19 12:13 Dose: Not Given Documented by: Labetalol HCl (Normodyne -) 200 mg PO TID [facility] Last Admin: 11/24/19 14:19 Dose: 200 mg Documented by: Levothyroxine Sodium (Synthroid -) 25 mcg PO DAILY@0700 [facility] Last Admin: 11/28/19 06:24 Dose: 25 mcg Documented by: Mirtazapine (Remeron -) 30 mg PO [facility] Last Admin: 11/27/19 22:19 Dose: 30 mg Documented by: Nifedipine (Procardia Xl -) 90 mg PO DAILY [facility] Last Admin: 11/28/19 09:36 Dose: 90 mg Documented by: Pantoprazole Sodium (Protonix -) 20 mg PO DAILY [facility] Last Admin: 11/28/19 09:36 Dose: 20 mg Documented by: Tramadol HCl (Ultram -) 50 mg PO BID PRN PRN Reason: PAIN LEVEL 7 - 10 Last Admin: 11/27/19 09:10 Dose: 50 mg Documented by: Trazodone HCl (Desyrel -) 50 mg PO HS [facility] Last Admin: 11/27/19 22:19 Dose: 50 mg Documented by: - Objective Vital Signs: Vital Signs Temperature 98.4 F 11/28/19 09:48 Pulse Rate 80 11/28/19 09:48 Respiratory Rate 22 H 11/28/19 09:48 Blood Pressure 188/70 H 11/28/19 09:48 O2 Sat by Pulse Oximetry (%) 97 11/28/19 09:48 Constitutional: Yes: Calm Eyes: Yes: Conjunctiva Clear HENT: Yes: Atraumatic Neck: Yes: Supple Cardiovascular: Yes: S1, S2 Respiratory: Yes: CTA Bilaterally, On Nasal O2 Gastrointestinal: Yes: Normal Bowel Sounds, Soft Genitourinary: Yes: WNL Musculoskeletal: Yes: WNL Edema: Yes Edema: LLE: Trace, RLE: Trace Neurological: Yes: Oriented Labs: CBC, BMP 11/28/19 08:10 11/28/19 08:10 INR, PTT INR 1.08 (0.83-1.09) 11/23/19 16:45 Problem List - Problems (1) JASPER (acute kidney injury) Code(s): N17.9 - ACUTE KIDNEY FAILURE, UNSPECIFIED (2) Acute kidney injury superimposed on chronic kidney disease Code(s): N17.9 - ACUTE KIDNEY FAILURE, UNSPECIFIED; N18.9 - CHRONIC KIDNEY DISEASE, UNSPECIFIED (3) CHF (congestive heart failure) Code(s): I50.9 - HEART FAILURE, UNSPECIFIED Qualifiers: (4) CHF exacerbation Code(s): I50.9 - HEART FAILURE, UNSPECIFIED (5) CKD (chronic kidney disease) Code(s): N18.9 - CHRONIC KIDNEY DISEASE, UNSPECIFIED (6) Dementia Code(s): F03.90 - UNSPECIFIED DEMENTIA WITHOUT BEHAVIORAL DISTURBANCE (7) Diverticulosis Code(s): K57.90 - DVRTCLOS OF INTEST, PART UNSP, W/O PERF OR ABSCESS W/O BLEED Assessment/Plan Current Medications Generic Name Dose Route Start Last Admin Trade Name Freq PRN Reason Stop Dose Admin Acetaminophen 650 mg 11/24/19 15:25 11/27/19 05:51 Tylenol - PO 650 mg Q4H PRN Administration PAIN 1-6 Albuterol Sulfate 2 puff 11/23/19 20:02 11/27/19 08:50 Ventolin Hfa Inhaler - IH 2 puff Q6H PRN Administration SHORT OF BREATH/WHEEZING Atorvastatin Calcium 20 mg 11/24/19 22:00 11/27/19 22:19 Lipitor - PO 20 mg HS [facility] Administration Bupropion HCl 150 mg 11/24/19 10:00 11/28/19 09:36 Wellbutrin Xl - PO 150 mg DAILY [facility] Administration Furosemide 60 mg 11/25/19 11:30 11/28/19 09:36 Lasix Injection - IVPUSH 60 mg DAILY [facility] Administration Hydralazine HCl 50 mg 11/24/19 14:00 11/28/19 06:24 Apresoline - PO 50 mg TID [facility] Administration Ertapenem 0.5 gm/ Sodium 50 mls @ 100 mls/hr 11/26/19 18:45 11/28/19 12:13 Chloride IVPB 100 mls/hr DAILY [facility] Administration Insulin Aspart 1 vial 11/24/19 11:00 11/28/19 12:13 Novolog Vial Sliding Scale - SQ Not Given ACHS [facility] Protocol Labetalol HCl 200 mg 11/24/19 14:00 11/24/19 14:19 Normodyne - PO 200 mg TID [facility] Administration Levothyroxine Sodium 25 mcg 11/24/19 07:00 11/28/19 06:24 Synthroid - PO 25 mcg DAILY@0700 [facility] Administration Mirtazapine 30 mg 11/24/19 22:00 11/27/19 22:19 Remeron - PO 30 mg HS [facility] Administration Nifedipine 90 mg 11/25/19 11:30 11/28/19 09:36 Procardia Xl - PO 90 mg DAILY [facility] Administration Pantoprazole Sodium 20 mg 11/25/19 10:00 11/28/19 09:36 Protonix - PO 20 mg DAILY [facility] Administration Tramadol HCl 50 mg 11/25/19 14:07 11/27/19 09:10 Ultram - PO 50 mg BID PRN Administration PAIN LEVEL 7 - 10 Trazodone HCl 50 mg 11/24/19 22:00 11/27/19 22:19 Desyrel - PO 50 mg HS [facility] Administration Impression 1. JASPER 2. CKD 3. HLD 4. diverticulosis 5. HTN 6. DM 7. proteinuria 8. hypoalbuminemia 9. UTI 10. pleural effusion 11. chf 12. pericardial effusion without tamponade 13. fluid overload Impression - cont diuretics - cardio input appreciated - monitor bp, repeat after am meds - discussed with medical team - monitor on tele - arb on hold until renal function stabilizes - roll capper improving
--- NOTE | 2019-11-28 13:46 | PN ---
Progress Note, Physician Chief Complaint: Abdominal pain Pericardial effusion CKD UTI Anemia HTN History of Present Illness: The patient is a 79-year-old female with dementia, diabetes, hypertension, hyperlipidemia, Parkinson disease, diverticulosis, lower GI bleed, diastolic heart failure, frequent admissions for abdominal pain and fecal impaction and pleural effusions, normal left ventricular systolic function on echo 05/03/2018 without significant valvular abnormalities, bradycardia on labetalol, now presenting with abdominal pain and shortness of breath. Fluid overloaded. NAD, sitting in a chair c/o abd after she eats Last BM as per pt 2 weeks ago? Supposed to be on reglan AC Seen by GI for abd pain CTAP- possible colitis? - Current Medication List Current Medications: Active Medications Acetaminophen (Tylenol -) 650 mg PO Q4H PRN PRN Reason: PAIN 1-6 Last Admin: 11/27/19 05:51 Dose: 650 mg Documented by: Albuterol Sulfate (Ventolin Hfa Inhaler -) 2 puff IH Q6H PRN PRN Reason: SHORT OF BREATH/WHEEZING Last Admin: 11/27/19 08:50 Dose: 2 puff Documented by: Atorvastatin Calcium (Lipitor -) 20 mg PO HS [facility] Last Admin: 11/27/19 22:19 Dose: 20 mg Documented by: Bupropion HCl (Wellbutrin Xl -) 150 mg PO DAILY [facility] Last Admin: 11/28/19 09:36 Dose: 150 mg Documented by: Furosemide (Lasix Injection -) 60 mg IVPUSH DAILY [facility] Last Admin: 11/28/19 09:36 Dose: 60 mg Documented by: Hydralazine HCl (Apresoline -) 50 mg PO TID [facility] Last Admin: 11/28/19 06:24 Dose: 50 mg Documented by: Ertapenem 0.5 gm/ Sodium (Chloride) 50 mls @ 100 mls/hr IVPB DAILY [facility] Last Admin: 11/28/19 12:13 Dose: 100 mls/hr Documented by: Insulin Aspart (Novolog Vial Sliding Scale -) 1 vial SQ ACHS [facility]; Protocol Last Admin: 11/28/19 12:13 Dose: Not Given Documented by: Labetalol HCl (Normodyne -) 200 mg PO TID [facility] Last Admin: 11/24/19 14:19 Dose: 200 mg Documented by: Levothyroxine Sodium (Synthroid -) 25 mcg PO DAILY@0700 [facility] Last Admin: 11/28/19 06:24 Dose: 25 mcg Documented by: Mirtazapine (Remeron -) 30 mg PO [facility] Last Admin: 11/27/19 22:19 Dose: 30 mg Documented by: Nifedipine (Procardia Xl -) 90 mg PO DAILY [facility] Last Admin: 11/28/19 09:36 Dose: 90 mg Documented by: Pantoprazole Sodium (Protonix -) 20 mg PO DAILY [facility] Last Admin: 11/28/19 09:36 Dose: 20 mg Documented by: Tramadol HCl (Ultram -) 50 mg PO BID PRN PRN Reason: PAIN LEVEL 7 - 10 Last Admin: 11/27/19 09:10 Dose: 50 mg Documented by: Trazodone HCl (Desyrel -) 50 mg PO [facility] Last Admin: 11/27/19 22:19 Dose: 50 mg Documented by: - Objective Vital Signs: Vital Signs Temperature 98.1 F 11/28/19 13:40 Pulse Rate 75 11/28/19 13:40 Respiratory Rate 20 11/28/19 13:40 Blood Pressure 142/63 11/28/19 13:40 O2 Sat by Pulse Oximetry (%) 97 11/28/19 09:48 Constitutional: Yes: Well Nourished, No Distress, Calm Cardiovascular: Yes: Regular Rate and Rhythm Respiratory: Yes: Regular, CTA Bilaterally Gastrointestinal: Yes: Normal Bowel Sounds, Soft Genitourinary: Yes: Incontinence Musculoskeletal: Yes: Muscle Weakness Extremities: Yes: WNL Edema: No Peripheral Pulses WNL: Yes Neurological: Yes: Alert, Oriented Psychiatric: Yes: Alert, Oriented Labs: CBC, BMP 11/28/19 08:10 11/28/19 08:10 INR, PTT INR 1.08 (0.83-1.09) 11/23/19 16:45 Problem List - Problems (1) Acute kidney injury superimposed on CKD Assessment/Plan: -Nephrology on board -Cr at baseline Problems reviewed: Yes Code(s): N17.9 - ACUTE KIDNEY FAILURE, UNSPECIFIED; N18.9 - CHRONIC KIDNEY DISEASE, UNSPECIFIED (2) Pericardial effusion Assessment/Plan: -Echo + moderate pericardial effusion -Seen by Cardiology -No pericardiocentesis recommended -IV diuresis furosemide 60 mg daily--->transition to OP torsemide 40 mg po daily starting tomorrow -Repeat Echo in 1 month outpatient Problems reviewed: Yes Code(s): I31.3 - PERICARDIAL EFFUSION (NONINFLAMMATORY) (3) Sepsis Assessment/Plan: -Resolved -afebrile -ID consult appreciated -IV Ertapenem Problems reviewed: Yes Code(s): A41.9 - SEPSIS, UNSPECIFIED ORGANISM (4) Urinary tract infection Assessment/Plan: -UC: Microbiology 11/23/19 16:45 Blood - Peripheral Venous Blood Culture - Preliminary NO GROWTH OBTAINED AFTER 96 HOURS, INCUBATION TO CONTINUE FOR 1 DAYS. 11/23/19 16:55 Blood - Peripheral Venous Blood Culture - Preliminary NO GROWTH OBTAINED AFTER 96 HOURS, INCUBATION TO CONTINUE FOR 1 DAYS. 11/23/19 17:25 Urine - Urine - Catheterized Urine Culture - Final Escherichia Coli [employer] 11/24/19 14:10 Urine - Urine Clean Catch Legionella Antigen - Final 11/24/19 14:10 Urine - Urine Clean Catch Streptococcus pneumoniae Antigen (M - Final -afebrile -ID consult appreciated -IV Ertapenem Problems reviewed: Yes Code(s): N39.0 - URINARY TRACT INFECTION, SITE NOT SPECIFIED Qualifiers: Urinary tract infection type: site unspecified (5) Abdominal pain Assessment/Plan: -resolved -Seen by GI -Restart Reglan 10 mg AC -PPI -[place] x 1 Problems reviewed: Yes Code(s): R10.9 - UNSPECIFIED ABDOMINAL PAIN Qualifiers: Abdominal location: generalized Qualified Code(s): R10.84 - Generalized abdominal pain (6) Acute on chronic diastolic (congestive) heart failure Assessment/Plan: -Cardiology consult appreciated -Telemetry -Echocardiogram with moderate to large pericardial effusion. Normal EF. No tamponade. -IV furosemide 60 mg daily---->transition to torsemide 40 mg po daily in AM Problems reviewed: Yes Code(s): I50.33 - ACUTE ON CHRONIC DIASTOLIC (CONGESTIVE) HEART FAILURE (7) Anemia Assessment/Plan: -chronic -Multifactorial -OLINDA -Injectafer once -Iron polysaccharride 150 mg po daily Problems reviewed: Yes Code(s): D64.9 - ANEMIA, UNSPECIFIED (8) Diabetes Assessment/Plan: -Recheck A1c -BGM AC HS -ISS -Diabetic low sodium diet Problems reviewed: Yes Code(s): E11.9 - TYPE 2 DIABETES MELLITUS WITHOUT COMPLICATIONS Assessment/Plan See problem list
[2019-11-28] MEDS ORDERED: FERRIC CARBOXYMALTOSE 750 MG in SODIUM CHLORIDE 250 ML IVPB ONE (15:00)
[2019-11-28] MEDS ORDERED: MAG HYDROX/AL HYDROX/SIMETH 30 ML UNIT-DOSE CUP PO ONE (16:15)
[2019-11-28] MEDS: POLYETHYLENE GLYCOL 3350 119 GM BTL PO SCH (19:06)
[2019-11-28] MEDS: IRON POLYSACCHARIDES 150 MG CAPSULE PO SCH (19:06)
[2019-11-28] MEDS: METOCLOPRAMIDE HCL 10 MG TABLET (FP) PO SCH (19:07)
[2019-11-28] MEDS: traZODone HCL 50 MG TABLET (FP) PO SCH (22:12)
[2019-11-28] MEDS: ATORVASTATIN CA 20 MG TABLET (FP) PO SCH (22:12)
[2019-11-28] MEDS: MIRTAZAPINE 30 MG TABLET PO SCH (22:13)
[2019-11-28] MEDS: SENNOSIDES 8.6MG TABLET (FP) PO SCH (22:13)
[2019-11-29] MEDS ORDERED: HALOPERIDOL LACTATE 5 MG/ML IV ONE (02:08)
[2019-11-29] MEDS: LEVOTHYROXINE NA 25 MCG TABLET (FP) PO SCH (06:12)
[2019-11-29] MEDS: METOCLOPRAMIDE HCL 10 MG TABLET (FP) PO SCH ×3 (06:12→17:45)
[2019-11-29] MEDS: hydrALAZINE HCL 50 MG TABLET (FP) PO SCH ×3 (06:12→21:05)
[2019-11-29] MEDS: INSULIN SLIDING SCALE (NOVOLOG) 1 VIAL SQ SCH ×4 (06:12→21:15)
--- NOTE | 2019-11-29 07:29 | PN ---
Progress Note, Physician History of Present Illness: pulmonary alert,comfortable,sob improving - Current Medication List Current Medications: Active Medications Acetaminophen (Tylenol -) 650 mg PO Q4H PRN PRN Reason: PAIN 1-6 Last Admin: 11/27/19 05:51 Dose: 650 mg Documented by: Albuterol Sulfate (Ventolin Hfa Inhaler -) 2 puff IH Q6H PRN PRN Reason: SHORT OF BREATH/WHEEZING Last Admin: 11/27/19 08:50 Dose: 2 puff Documented by: Atorvastatin Calcium (Lipitor -) 20 mg PO [facility] Last Admin: 11/28/19 22:12 Dose: Not Given Documented by: Bupropion HCl (Wellbutrin Xl -) 150 mg PO DAILY [facility] Last Admin: 11/28/19 09:36 Dose: 150 mg Documented by: Hydralazine HCl (Apresoline -) 50 mg PO TID [facility] Last Admin: 11/29/19 06:12 Dose: 50 mg Documented by: Ertapenem 0.5 gm/ Sodium (Chloride) 50 mls @ 100 mls/hr IVPB DAILY [facility] Last Admin: 11/28/19 12:13 Dose: 100 mls/hr Documented by: Insulin Aspart (Novolog Vial Sliding Scale -) 1 vial SQ ACHS [facility]; Protocol Last Admin: 11/29/19 06:12 Dose: Not Given Documented by: Labetalol HCl (Normodyne -) 200 mg PO TID [facility] Last Admin: 11/24/19 14:19 Dose: 200 mg Documented by: Levothyroxine Sodium (Synthroid -) 25 mcg PO DAILY@0700 [facility] Last Admin: 11/29/19 06:12 Dose: 25 mcg Documented by: Metoclopramide HCl (Reglan -) 10 mg PO TIDAC [facility] Last Admin: 11/29/19 06:12 Dose: 10 mg Documented by: Mirtazapine (Remeron -) 30 mg PO [facility] Last Admin: 11/28/19 22:13 Dose: Not Given Documented by: Nifedipine (Procardia Xl -) 90 mg PO DAILY [facility] Last Admin: 11/28/19 09:36 Dose: 90 mg Documented by: Pantoprazole Sodium (Protonix -) 20 mg PO DAILY [facility] Last Admin: 11/28/19 09:36 Dose: 20 mg Documented by: Polyethylene Glycol (Miralax (For Daily Use) -) 17 gm PO DAILY [facility] Last Admin: 11/28/19 19:06 Dose: 17 gm Documented by: Polysaccharide Iron Complex (Niferex-150 -) 150 mg PO DAILY [facility] Last Admin: 11/28/19 19:06 Dose: 150 mg Documented by: Senna (Senna -) 2 tab PO [facility] Last Admin: 11/28/19 22:13 Dose: Not Given Documented by: Torsemide (Demadex -) 40 mg PO DAILY [facility] Trazodone HCl (Desyrel -) 50 mg PO [facility] Last Admin: 11/28/19 22:12 Dose: 50 mg Documented by: - Objective Vital Signs: Vital Signs Temperature 98.6 F 11/29/19 01:00 Pulse Rate 92 H 11/29/19 01:00 Respiratory Rate 20 11/29/19 01:00 Blood Pressure 113/80 11/29/19 01:00 O2 Sat by Pulse Oximetry (%) 98 11/29/19 01:00 Constitutional: Yes: Well Nourished, Calm Eyes: Yes: WNL HENT: Yes: WNL Neck: Yes: WNL Cardiovascular: Yes: Regular Rate and Rhythm, S1, S2 Respiratory: Yes: Rales (bibasilar rales) Gastrointestinal: Yes: Normal Bowel Sounds, Soft Extremities: Yes: WNL Edema: No Labs: Problem List - Problems (1) Acute kidney injury superimposed on chronic kidney disease Code(s): N17.9 - ACUTE KIDNEY FAILURE, UNSPECIFIED; N18.9 - CHRONIC KIDNEY DISEASE, UNSPECIFIED (2) Urinary tract infection Code(s): N39.0 - URINARY TRACT INFECTION, SITE NOT SPECIFIED Qualifiers: Urinary tract infection type: site unspecified (3) Abdominal pain Code(s): R10.9 - UNSPECIFIED ABDOMINAL PAIN Qualifiers: Abdominal location: generalized Qualified Code(s): R10.84 - Generalized abdominal pain (4) Abnormal CXR Code(s): R93.89 - ABNORMAL FINDINGS ON DX IMAGING OF OTH BODY STRUCTURES (5) Acute on chronic diastolic (congestive) heart failure Code(s): I50.33 - ACUTE ON CHRONIC DIASTOLIC (CONGESTIVE) HEART FAILURE (6) Anemia Code(s): D64.9 - ANEMIA, UNSPECIFIED (7) CHF exacerbation Code(s): I50.9 - HEART FAILURE, UNSPECIFIED (8) Dementia Code(s): F03.90 - UNSPECIFIED DEMENTIA WITHOUT BEHAVIORAL DISTURBANCE (9) Diabetes Code(s): E11.9 - TYPE 2 DIABETES MELLITUS WITHOUT COMPLICATIONS (10) HLD (hyperlipidemia) Code(s): E78.5 - HYPERLIPIDEMIA, UNSPECIFIED (11) HTN (hypertension) Code(s): I10 - ESSENTIAL (PRIMARY) HYPERTENSION (12) Pleural effusion Code(s): J90 - PLEURAL EFFUSION, NOT ELSEWHERE CLASSIFIED (13) Pulmonary HTN Code(s): I27.20 - PULMONARY HYPERTENSION, UNSPECIFIED (14) SOB (shortness of breath) Code(s): R06.02 - SHORTNESS OF BREATH Assessment/Plan IMP ACUTE HYPOXEMIC RESPIRATORY FAILURE IMPROVING ACUTE ON CHRONIC DIASTOLIC HF ABDOMINAL PAIN HTN ACUTE ON CHRONIC KIDNEY DISEASE PARKINSONS DEMENTIA DONNA NODULE ANEMIA PULMONARY HTN PERICARDIAL EFFUSION UTI PLAN SUPPLEMENTAL O2 INHALED BRONCHODILATORS CONTINUE LASIX ABX MONITOR LYTES,RENAL FUNCTION TREND H+H NORMAL TRANSFUSION THRESHOLD F/U CHEST X-RAYS F/U ECHO MONITOR PERICARDIAL EFFUSION DR CAMPA Problem List - Problems (1) Acute kidney injury superimposed on chronic kidney disease Code(s): N17.9 - ACUTE KIDNEY FAILURE, UNSPECIFIED; N18.9 - CHRONIC KIDNEY DISEASE, UNSPECIFIED (2) Urinary tract infection Code(s): N39.0 - URINARY TRACT INFECTION, SITE NOT SPECIFIED Qualifiers: Urinary tract infection type: site unspecified (3) Abdominal pain Code(s): R10.9 - UNSPECIFIED ABDOMINAL PAIN Qualifiers: Abdominal location: generalized Qualified Code(s): R10.84 - Generalized abdominal pain (4) Abnormal CXR Code(s): R93.89 - ABNORMAL FINDINGS ON DX IMAGING OF [facility] BODY STRUCTURES (5) Acute on chronic diastolic (congestive) heart failure Code(s): I50.33 - ACUTE ON CHRONIC DIASTOLIC (CONGESTIVE) HEART FAILURE (6) Anemia Code(s): D64.9 - ANEMIA, UNSPECIFIED (7) CHF exacerbation Code(s): I50.9 - HEART FAILURE, UNSPECIFIED (8) Dementia Code(s): F03.90 - UNSPECIFIED DEMENTIA WITHOUT BEHAVIORAL DISTURBANCE (9) Diabetes Code(s): E11.9 - TYPE 2 DIABETES MELLITUS WITHOUT COMPLICATIONS (10) HLD (hyperlipidemia) Code(s): E78.5 - HYPERLIPIDEMIA, UNSPECIFIED (11) HTN (hypertension) Code(s): I10 - ESSENTIAL (PRIMARY) HYPERTENSION (12) Pleural effusion Code(s): J90 - PLEURAL EFFUSION, NOT ELSEWHERE CLASSIFIED (13) Pulmonary HTN Code(s): I27.20 - PULMONARY HYPERTENSION, UNSPECIFIED (14) SOB (shortness of breath) Code(s): R06.02 - SHORTNESS OF BREATH
[2019-11-29] MEDS ORDERED: PT OWN MED DRAWER 7, Y5N ONE (10:01)
--- NOTE | 2019-11-29 10:26 | PN ---
Progress Note, Physician History of Present Illness: seen and examined today in nad. no overnight events. no new complaints. - Current Medication List Current Medications: Active Medications Acetaminophen (Tylenol -) 650 mg PO Q4H PRN PRN Reason: PAIN 1-6 Last Admin: 11/27/19 05:51 Dose: 650 mg Documented by: Albuterol Sulfate (Ventolin Hfa Inhaler -) 2 puff IH Q6H PRN PRN Reason: SHORT OF BREATH/WHEEZING Last Admin: 11/27/19 08:50 Dose: 2 puff Documented by: Atorvastatin Calcium (Lipitor -) 20 mg PO [facility] Last Admin: 11/28/19 22:12 Dose: Not Given Documented by: Bupropion HCl (Wellbutrin Xl -) 150 mg PO DAILY [facility] Last Admin: 11/28/19 09:36 Dose: 150 mg Documented by: Hydralazine HCl (Apresoline -) 50 mg PO TID [facility] Last Admin: 11/29/19 06:12 Dose: 50 mg Documented by: Ertapenem 0.5 gm/ Sodium (Chloride) 50 mls @ 100 mls/hr IVPB DAILY [facility] Last Admin: 11/28/19 12:13 Dose: 100 mls/hr Documented by: Insulin Aspart (Novolog Vial Sliding Scale -) 1 vial SQ ACHS [facility]; Protocol Last Admin: 11/29/19 06:12 Dose: Not Given Documented by: Labetalol HCl (Normodyne -) 200 mg PO TID [facility] Last Admin: 11/24/19 14:19 Dose: 200 mg Documented by: Levothyroxine Sodium (Synthroid -) 25 mcg PO DAILY@0700 [facility] Last Admin: 11/29/19 06:12 Dose: 25 mcg Documented by: Metoclopramide HCl (Reglan -) 10 mg PO TIDAC [facility] Last Admin: 11/29/19 06:12 Dose: 10 mg Documented by: Mirtazapine (Remeron -) 30 mg PO [facility] Last Admin: 11/28/19 22:13 Dose: Not Given Documented by: Nifedipine (Procardia Xl -) 90 mg PO DAILY [facility] Last Admin: 11/28/19 09:36 Dose: 90 mg Documented by: Pantoprazole Sodium (Protonix -) 20 mg PO DAILY [facility] Last Admin: 11/28/19 09:36 Dose: 20 mg Documented by: Polyethylene Glycol (Miralax (For Daily Use) -) 17 gm PO DAILY [facility] Last Admin: 11/28/19 19:06 Dose: 17 gm Documented by: Polysaccharide Iron Complex (Niferex-150 -) 150 mg PO DAILY [facility] Last Admin: 11/28/19 19:06 Dose: 150 mg Documented by: Senna (Senna -) 2 tab PO [facility] Last Admin: 11/28/19 22:13 Dose: Not Given Documented by: Torsemide (Demadex -) 40 mg PO DAILY [facility] Trazodone HCl (Desyrel -) 50 mg PO HS [facility] Last Admin: 11/28/19 22:12 Dose: 50 mg Documented by: - Objective Vital Signs: Vital Signs Temperature 98.7 F 11/29/19 06:00 Pulse Rate 77 11/29/19 06:00 Respiratory Rate 18 11/29/19 06:00 Blood Pressure 151/54 L 11/29/19 06:00 O2 Sat by Pulse Oximetry (%) 98 11/29/19 06:00 Constitutional: Yes: No Distress, Calm Eyes: Yes: Conjunctiva Clear, EOM Intact HENT: Yes: Atraumatic, Normocephalic Neck: Yes: Supple, Trachea Midline Cardiovascular: Yes: S1, S2. No: Bradycardia, Tachycardia, Pulse Irregular, Bruit, JVD, Gallop, Murmur, Rub, S3, S4, Varicosities Respiratory: Yes: Regular. No: Rales, Wheezes Gastrointestinal: Yes: Normal Bowel Sounds, Soft. No: Distention, Tenderness Musculoskeletal: Yes: WNL Extremities: Yes: WNL Edema: No Peripheral Pulses WNL: Yes Peripheral Pulses: Left Doralis Pedis: 2+, Right Dorsalis Pedis: 2+ Neurological: Yes: Alert Psychiatric: Yes: Alert Labs: CBC, BMP 11/28/19 08:10 11/28/19 08:10 INR, PTT INR 1.08 (0.83-1.09) 11/23/19 16:45 - ....Imaging Chest X-ray: Report Reviewed, Image Reviewed EKG: Report Reviewed, Image Reviewed Other: Report Reviewed, Image Reviewed Assessment/Plan The patient is a 79-year-old female with dementia, diabetes, hypertension, hyperlipidemia, Parkinson disease, diverticulosis, lower GI bleed, diastolic h eart failure, frequent admissions for abdominal pain and fecal impaction and pleural effusions, normal left ventricular systolic function on echo 05/03/2018 without significant valvular abnormalities, bradycardia on labetalol, now presenting with abdominal pain and shortness of breath. Fluid overloaded. Pericardial effusion with preserved biventricular function and no sings of tamponade. -No indication for pericardial tamponade. Would defer pericardiocentesis. -cont Torsemide 40mg daily -plan to repeat echo as outpatient unless clinical change while inpatient
[2019-11-29] MEDS: TORSEMIDE 20 MG TABLET (FP) PO SCH (10:29)
[2019-11-29] MEDS: ERTAPENEM SODIUM 0.5 GM in SODIUM CHLORIDE 50 ML IVPB SCH (10:29)
[2019-11-29] MEDS: NIFEdipine E.R. 90 MG TABLET PO SCH (10:30)
[2019-11-29] MEDS: PANTOPRAZOLE 20 MG TABLET PO SCH (10:30)
[2019-11-29] MEDS: POLYETHYLENE GLYCOL 3350 119 GM BTL PO SCH ×2 (10:30→22:42)
[2019-11-29] MEDS: IRON POLYSACCHARIDES 150 MG CAPSULE PO SCH (10:30)
--- NOTE | 2019-11-29 10:59 | PN ---
Progress Note, Physician Chief Complaint: Abdominal pain Pericardial effusion CKD UTI Anemia HTN History of Present Illness: The patient is a 79-year-old female with dementia, diabetes, hypertension, hyperlipidemia, Parkinson disease, diverticulosis, lower GI bleed, diastolic heart failure, frequent admissions for abdominal pain and fecal impaction and pleural effusions, normal left ventricular systolic function on echo 05/03/2018 without significant valvular abnormalities, bradycardia on labetalol, now presenting with abdominal pain and shortness of breath. Fluid overloaded. NAD, sitting in a chair c/o abd after she eats, poor appetite Last BM as per pt 2 weeks ago? Supposed to be on reglan AC Seen by GI for abd pain CTAP- possible colitis? AXR + constipation - Current Medication List Current Medications: Active Medications Acetaminophen (Tylenol -) 650 mg PO Q4H PRN PRN Reason: PAIN 1-6 Last Admin: 11/27/19 05:51 Dose: 650 mg Documented by: Albuterol Sulfate (Ventolin Hfa Inhaler -) 2 puff IH Q6H PRN PRN Reason: SHORT OF BREATH/WHEEZING Last Admin: 11/27/19 08:50 Dose: 2 puff Documented by: Atorvastatin Calcium (Lipitor -) 20 mg PO HS [facility] Last Admin: 11/28/19 22:12 Dose: Not Given Documented by: Bupropion HCl (Wellbutrin Xl -) 150 mg PO DAILY [facility] Last Admin: 11/29/19 10:30 Dose: 150 mg Documented by: Hydralazine HCl (Apresoline -) 50 mg PO TID [facility] Last Admin: 11/29/19 06:12 Dose: 50 mg Documented by: Ertapenem 0.5 gm/ Sodium (Chloride) 50 mls @ 100 mls/hr IVPB DAILY [facility] Last Admin: 11/29/19 10:29 Dose: 100 mls/hr Documented by: Insulin Aspart (Novolog Vial Sliding Scale -) 1 vial SQ ACHS [facility]; Protocol Last Admin: 11/29/19 06:12 Dose: Not Given Documented by: Labetalol HCl (Normodyne -) 200 mg PO TID [facility] Last Admin: 11/24/19 14:19 Dose: 200 mg Documented by: Levothyroxine Sodium (Synthroid -) 25 mcg PO DAILY@0700 [facility] Last Admin: 11/29/19 06:12 Dose: 25 mcg Documented by: Metoclopramide HCl (Reglan -) 10 mg PO TIDAC [facility] Last Admin: 11/29/19 10:30 Dose: 10 mg Documented by: Mirtazapine (Remeron -) 30 mg PO [facility] Last Admin: 11/28/19 22:13 Dose: Not Given Documented by: Nifedipine (Procardia Xl -) 90 mg PO DAILY [facility] Last Admin: 11/29/19 10:30 Dose: 90 mg Documented by: Pantoprazole Sodium (Protonix -) 20 mg PO DAILY [facility] Last Admin: 11/29/19 10:30 Dose: 20 mg Documented by: Polyethylene Glycol (Miralax (For Daily Use) -) 17 gm PO DAILY [facility] Last Admin: 11/29/19 10:30 Dose: 17 gm Documented by: Polysaccharide Iron Complex (Niferex-150 -) 150 mg PO DAILY [facility] Last Admin: 11/29/19 10:30 Dose: 150 mg Documented by: Senna (Senna -) 2 tab PO [facility] Last Admin: 11/28/19 22:13 Dose: Not Given Documented by: Torsemide (Demadex -) 40 mg PO DAILY [facility] Last Admin: 11/29/19 10:29 Dose: 40 mg Documented by: Trazodone HCl (Desyrel -) 50 mg PO [facility] Last Admin: 11/28/19 22:12 Dose: 50 mg Documented by: - Objective Vital Signs: Vital Signs Temperature 98.7 F 11/29/19 06:00 Pulse Rate 77 11/29/19 06:00 Respiratory Rate 18 11/29/19 06:00 Blood Pressure 151/54 L 11/29/19 06:00 O2 Sat by Pulse Oximetry (%) 98 11/29/19 06:00 Constitutional: Yes: Well Nourished, No Distress, Calm Cardiovascular: Yes: Regular Rate and Rhythm Respiratory: Yes: Regular, CTA Bilaterally Gastrointestinal: Yes: Normal Bowel Sounds, Soft Genitourinary: Yes: Incontinence Musculoskeletal: Yes: Muscle Weakness Extremities: Yes: WNL Edema: No Peripheral Pulses WNL: Yes Neurological: Yes: Alert, Oriented Psychiatric: Yes: Alert, Oriented Labs: CBC, BMP 11/28/19 08:10 11/28/19 08:10 INR, PTT INR 1.08 (0.83-1.09) 11/23/19 16:45 Problem List - Problems (1) Acute kidney injury superimposed on CKD Assessment/Plan: -Nephrology on board -Cr at baseline Problems reviewed: Yes Code(s): N17.9 - ACUTE KIDNEY FAILURE, UNSPECIFIED; N18.9 - CHRONIC KIDNEY DISEASE, UNSPECIFIED (2) Pericardial effusion Assessment/Plan: -Echo + moderate pericardial effusion -Seen by Cardiology -No pericardiocentesis recommended -Diuresis with torsemide 40 mg po daily -Repeat Echo in 1 month outpatient Problems reviewed: Yes Code(s): I31.3 - PERICARDIAL EFFUSION (NONINFLAMMATORY) (3) Sepsis Assessment/Plan: -Resolved -afebrile -ID consult appreciated -IV Ertapenem Problems reviewed: Yes Code(s): A41.9 - SEPSIS, UNSPECIFIED ORGANISM (4) Urinary tract infection Assessment/Plan: -UC: Microbiology 11/23/19 16:45 Blood - Peripheral Venous Blood Culture - Preliminary NO GROWTH OBTAINED AFTER 96 HOURS, INCUBATION TO CONTINUE FOR 1 DAYS. 11/23/19 16:55 Blood - Peripheral Venous Blood Culture - Preliminary NO GROWTH OBTAINED AFTER 96 HOURS, INCUBATION TO CONTINUE FOR 1 DAYS. 11/23/19 17:25 Urine - Urine - Catheterized Urine Culture - Final Escherichia Coli Esbl [employer] 11/24/19 14:10 Urine - Urine Clean Catch Legionella Antigen - Final 11/24/19 14:10 Urine - Urine Clean Catch Streptococcus pneumoniae Antigen (M - Final -afebrile -ID consult appreciated -IV Ertapenem day 06/26 Problems reviewed: Yes Code(s): N39.0 - URINARY TRACT INFECTION, SITE NOT SPECIFIED Qualifiers: Urinary tract infection type: site unspecified (5) Abdominal pain Assessment/Plan: -Improved -Seen by GI -Restarted Reglan 10 mg AC -PPI Problems reviewed: Yes Code(s): R10.9 - UNSPECIFIED ABDOMINAL PAIN Qualifiers: Abdominal location: generalized Qualified Code(s): R10.84 - Generalized abdominal pain (6) Acute on chronic diastolic (congestive) heart failure Assessment/Plan: -Cardiology consult appreciated -Telemetry -Echocardiogram with moderate to large pericardial effusion. Normal EF. No tamponade. -IV furosemide 60 mg daily---->transition to torsemide 40 mg po daily in AM Problems reviewed: Yes Code(s): I50.33 - ACUTE ON CHRONIC DIASTOLIC (CONGESTIVE) HEART FAILURE (7) Anemia Assessment/Plan: -chronic -Multifactorial -OLINDA -Injectafer once -Iron polysaccharride 150 mg po daily Problems reviewed: Yes Code(s): D64.9 - ANEMIA, UNSPECIFIED (8) Diabetes Assessment/Plan: -A1c at <3.5 -D/C BGM AC HS -D/C ISS -Change diet to low sodium diet Problems reviewed: Yes Code(s): E11.9 - TYPE 2 DIABETES MELLITUS WITHOUT COMPLICATIONS (9) Constipation Assessment/Plan: -Miralax BID -Senna 2 tabs po HS -Enema x 1 Problems reviewed: Yes Code(s): K59.00 - CONSTIPATION, UNSPECIFIED Assessment/Plan See problem list
--- NOTE | 2019-11-29 12:57 | PN ---
Progress Note, Physician History of Present Illness: Pt seen and examined at bedside. She is awake and alert. She denies shortness of breath. - Current Medication List Current Medications: Active Medications Acetaminophen (Tylenol -) 650 mg PO Q4H PRN PRN Reason: PAIN 1-6 Last Admin: 11/27/19 05:51 Dose: 650 mg Documented by: Albuterol Sulfate (Ventolin Hfa Inhaler -) 2 puff IH Q6H PRN PRN Reason: SHORT OF BREATH/WHEEZING Last Admin: 11/27/19 08:50 Dose: 2 puff Documented by: Atorvastatin Calcium (Lipitor -) 20 mg PO [facility] Last Admin: 11/28/19 22:12 Dose: Not Given Documented by: Bupropion HCl (Wellbutrin Xl -) 150 mg PO DAILY [facility] Last Admin: 11/29/19 10:30 Dose: 150 mg Documented by: Hydralazine HCl (Apresoline -) 50 mg PO TID [facility] Last Admin: 11/29/19 06:12 Dose: 50 mg Documented by: Ertapenem 0.5 gm/ Sodium (Chloride) 50 mls @ 100 mls/hr IVPB DAILY [facility] Last Admin: 11/29/19 10:29 Dose: 100 mls/hr Documented by: Insulin Aspart (Novolog Vial Sliding Scale -) 1 vial SQ [facility]; Protocol Last Admin: 11/29/19 12:22 Dose: Not Given Documented by: Labetalol HCl (Normodyne -) 200 mg PO TID [facility] Last Admin: 11/24/19 14:19 Dose: 200 mg Documented by: Levothyroxine Sodium (Synthroid -) 25 mcg PO DAILY@0700 [facility] Last Admin: 11/29/19 06:12 Dose: 25 mcg Documented by: Metoclopramide HCl (Reglan -) 10 mg PO TIDAC [facility] Last Admin: 11/29/19 10:30 Dose: 10 mg Documented by: Mirtazapine (Remeron -) 30 mg PO [facility] Last Admin: 11/28/19 22:13 Dose: Not Given Documented by: Nifedipine (Procardia Xl -) 90 mg PO DAILY [facility] Last Admin: 11/29/19 10:30 Dose: 90 mg Documented by: Pantoprazole Sodium (Protonix -) 20 mg PO DAILY [facility] Last Admin: 11/29/19 10:30 Dose: 20 mg Documented by: Polyethylene Glycol (Miralax (For Daily Use) -) 17 gm PO DAILY [facility] Last Admin: 11/29/19 10:30 Dose: 17 gm Documented by: Polysaccharide Iron Complex (Niferex-150 -) 150 mg PO DAILY [facility] Last Admin: 11/29/19 10:30 Dose: 150 mg Documented by: Senna (Senna -) 2 tab PO [facility] Last Admin: 11/28/19 22:13 Dose: Not Given Documented by: Torsemide (Demadex -) 40 mg PO DAILY [facility] Last Admin: 11/29/19 10:29 Dose: 40 mg Documented by: Trazodone HCl (Desyrel -) 50 mg PO [facility] Last Admin: 11/28/19 22:12 Dose: 50 mg Documented by: - Objective Vital Signs: Vital Signs Temperature 98.7 F 11/29/19 06:00 Pulse Rate 77 11/29/19 06:00 Respiratory Rate 18 11/29/19 06:00 Blood Pressure 151/54 L 11/29/19 06:00 O2 Sat by Pulse Oximetry (%) 98 11/29/19 06:00 Constitutional: Yes: Calm Eyes: Yes: Conjunctiva Clear HENT: Yes: Atraumatic Neck: Yes: Supple Cardiovascular: Yes: S1, S2 Respiratory: Yes: CTA Bilaterally Gastrointestinal: Yes: Soft Genitourinary: Yes: WNL Musculoskeletal: Yes: WNL Edema: No Integumentary: Yes: WNL Neurological: Yes: Oriented Psychiatric: Yes: Oriented Labs: CBC, BMP 11/28/19 08:10 11/28/19 08:10 INR, PTT INR 1.08 (0.83-1.09) 11/23/19 16:45 Problem List - Problems (1) JASPER (acute kidney injury) Code(s): N17.9 - ACUTE KIDNEY FAILURE, UNSPECIFIED (2) Acute kidney injury superimposed on chronic kidney disease Code(s): N17.9 - ACUTE KIDNEY FAILURE, UNSPECIFIED; N18.9 - CHRONIC KIDNEY DISEASE, UNSPECIFIED (3) CHF (congestive heart failure) Code(s): I50.9 - HEART FAILURE, UNSPECIFIED Qualifiers: (4) CHF exacerbation Code(s): I50.9 - HEART FAILURE, UNSPECIFIED (5) CKD (chronic kidney disease) Code(s): N18.9 - CHRONIC KIDNEY DISEASE, UNSPECIFIED (6) Dementia Code(s): F03.90 - UNSPECIFIED DEMENTIA WITHOUT BEHAVIORAL DISTURBANCE (7) Diverticulosis Code(s): K57.90 - DVRTCLOS OF INTEST, PART UNSP, W/O PERF OR ABSCESS W/O BLEED Assessment/Plan Current Medications Generic Name Dose Route Start Last Admin Trade Name Freq PRN Reason Stop Dose Admin Acetaminophen 650 mg 11/24/19 15:25 11/27/19 05:51 Tylenol - PO 650 mg Q4H PRN Administration PAIN 1-6 Albuterol Sulfate 2 puff 11/23/19 20:02 11/27/19 08:50 Ventolin Hfa Inhaler - IH 2 puff Q6H PRN Administration SHORT OF BREATH/WHEEZING Atorvastatin Calcium 20 mg 11/24/19 22:00 11/28/19 22:12 Lipitor - PO Not Given HS JOYCE Bupropion HCl 150 mg 11/24/19 10:00 11/29/19 10:30 Wellbutrin Xl - PO 150 mg DAILY [facility] Administration Hydralazine HCl 50 mg 11/24/19 14:00 11/29/19 06:12 Apresoline - PO 50 mg TID [facility] Administration Ertapenem 0.5 gm/ Sodium 50 mls @ 100 mls/hr 11/26/19 18:45 11/29/19 10:29 Chloride IVPB 100 mls/hr DAILY [facility] Administration Insulin Aspart 1 vial 11/24/19 11:00 11/29/19 12:22 Novolog Vial Sliding Scale - SQ Not Given ACHS [facility] Protocol Labetalol HCl 200 mg 11/24/19 14:00 11/24/19 14:19 Normodyne - PO 200 mg TID [facility] Administration Levothyroxine Sodium 25 mcg 11/24/19 07:00 11/29/19 06:12 Synthroid - PO 25 mcg DAILY@0700 [facility] Administration Metoclopramide HCl 10 mg 11/28/19 16:30 11/29/19 10:30 Reglan - PO 10 mg TIDAC [facility] Administration Mirtazapine 30 mg 11/24/19 22:00 11/28/19 22:13 Remeron - PO Not Given HS [facility] Nifedipine 90 mg 11/25/19 11:30 11/29/19 10:30 Procardia Xl - PO 90 mg DAILY [facility] Administration Pantoprazole Sodium 20 mg 11/25/19 10:00 11/29/19 10:30 Protonix - PO 20 mg DAILY [facility] Administration Polyethylene Glycol 17 gm 11/28/19 16:15 11/29/19 10:30 Miralax (For Daily Use) - PO 17 gm DAILY [facility] Administration Polysaccharide Iron Complex 150 mg 11/28/19 15:00 11/29/19 10:30 Niferex-150 - PO 150 mg DAILY [facility] Administration Senna 2 tab 11/28/19 22:00 11/28/19 22:13 Senna - PO Not Given HS [facility] Torsemide 40 mg 11/29/19 10:00 11/29/19 10:29 Demadex - PO 40 mg DAILY [facility] Administration Trazodone HCl 50 mg 11/24/19 22:00 11/28/19 22:12 Desyrel - PO 50 mg HS [facility] Administration Impression 1. JASPER 2. CKD 3. HLD 4. diverticulosis 5. HTN 6. DM 7. proteinuria 8. hypoalbuminemia 9. UTI 10. pleural effusion 11. chf 12. pericardial effusion without tamponade 13. fluid overload Impression - cont torsemide - monitor volume status - monitor renal function - cardio input appreciated - repeat labs in am - arb on hold until renal function stabilizes
--- NOTE | 2019-11-29 13:09 | PN ---
Progress Note (short form) - Note Progress Note: Surgery Evaluation for Pericardial effusion. 79-year-old female with dementia, diabetes, hypertension, hyperlipidemia, Parkinson disease, diverticulosis, lower GI bleed, diastolic heart failure, frequent admissions for abdominal pain and fecal impaction and pleural ef fusions, normal left ventricular systolic function on echo 05/03/2018 without significant valvular abnormalities, bradycardia on labetalol, now presenting with abdominal pain and shortness of breath. Fluid overloaded. Cardiology following and notes reviewed: Pericardial effusion with preserved biventricular function and no sings of tamponade. -No indication for pericardial tamponade. Would defer pericardiocentesis. -cont Torsemide 40mg daily -plan to repeat echo as outpatient unless clinical change while inpatient Pericardial window only indicated after attempt of pericardiocentesis. No in dication for surgical intervention at this time. -Please re-consult CT surgery PRN Case discussed with Dr Aguirre. <Adri Davis - Last Filed: 11/29/19 13:04> - Note Progress Note: No indication for pericardiocentesis or window at this time. Would defer to Cardiology team should this change. <Geovanny Aguirre - Last Filed: 11/29/19 13:19>
[2019-11-29 14:38] VITALS: BMI 23.8
[2019-11-29] MEDS: MIRTAZAPINE 30 MG TABLET PO SCH (21:05)
[2019-11-29] MEDS: traZODone HCL 50 MG TABLET (FP) PO SCH (21:05)
[2019-11-29] MEDS: ATORVASTATIN CA 20 MG TABLET (FP) PO SCH (21:05)
[2019-11-29] MEDS: SENNOSIDES 8.6MG TABLET (FP) PO SCH (21:15)
[2019-11-30] MEDS: hydrALAZINE HCL 50 MG TABLET (FP) PO SCH ×3 (06:15→21:22)
[2019-11-30] MEDS: METOCLOPRAMIDE HCL 10 MG TABLET (FP) PO SCH ×3 (06:15→16:44)
[2019-11-30] MEDS: LEVOTHYROXINE NA 25 MCG TABLET (FP) PO SCH (06:15)
--- NOTE | 2019-11-30 07:23 | PN ---
Progress Note, Physician History of Present Illness: PULMONARY ALERT,FEELING BETTER,SOB IMPROVING - Current Medication List Current Medications: Active Medications Acetaminophen (Tylenol -) 650 mg PO Q4H PRN PRN Reason: PAIN 1-6 Last Admin: 11/27/19 05:51 Dose: 650 mg Documented by: Albuterol Sulfate (Ventolin Hfa Inhaler -) 2 puff IH Q6H PRN PRN Reason: SHORT OF BREATH/WHEEZING Last Admin: 11/27/19 08:50 Dose: 2 puff Documented by: Atorvastatin Calcium (Lipitor -) 20 mg PO [facility] Last Admin: 11/29/19 21:05 Dose: 20 mg Documented by: Bupropion HCl (Wellbutrin Xl -) 150 mg PO DAILY [facility] Last Admin: 11/29/19 10:30 Dose: 150 mg Documented by: Hydralazine HCl (Apresoline -) 50 mg PO TID [facility] Last Admin: 11/30/19 06:15 Dose: 50 mg Documented by: Ertapenem 0.5 gm/ Sodium (Chloride) 50 mls @ 100 mls/hr IVPB DAILY [facility] Last Admin: 11/29/19 10:29 Dose: 100 mls/hr Documented by: Labetalol HCl (Normodyne -) 200 mg PO TID [facility] Last Admin: 11/24/19 14:19 Dose: 200 mg Documented by: Levothyroxine Sodium (Synthroid -) 25 mcg PO DAILY@0700 [facility] Last Admin: 11/30/19 06:15 Dose: 25 mcg Documented by: Metoclopramide HCl (Reglan -) 10 mg PO TIDAC [facility] Last Admin: 11/30/19 06:15 Dose: 10 mg Documented by: Mirtazapine (Remeron -) 30 mg PO [facility] Last Admin: 11/29/19 21:05 Dose: 30 mg Documented by: Nifedipine (Procardia Xl -) 90 mg PO DAILY [facility] Last Admin: 11/29/19 10:30 Dose: 90 mg Documented by: Pantoprazole Sodium (Protonix -) 20 mg PO DAILY [facility] Last Admin: 11/29/19 10:30 Dose: 20 mg Documented by: Polyethylene Glycol (Miralax (For Daily Use) -) 17 gm PO BID [facility] Last Admin: 11/29/19 22:42 Dose: Not Given Documented by: Polysaccharide Iron Complex (Niferex-150 -) 150 mg PO DAILY [facility] Last Admin: 11/29/19 10:30 Dose: 150 mg Documented by: Senna (Senna -) 2 tab PO [facility] Last Admin: 11/29/19 21:15 Dose: Not Given Documented by: Torsemide (Demadex -) 40 mg PO DAILY [facility] Last Admin: 11/29/19 10:29 Dose: 40 mg Documented by: Trazodone HCl (Desyrel -) 50 mg PO [facility] Last Admin: 11/29/19 21:05 Dose: 50 mg Documented by: - Objective Vital Signs: Vital Signs Temperature 98 F 11/30/19 06:00 Pulse Rate 84 11/30/19 07:00 Respiratory Rate 18 11/30/19 07:00 Blood Pressure 161/62 11/30/19 07:00 O2 Sat by Pulse Oximetry (%) 94 L 11/30/19 07:00 Constitutional: Yes: Well Nourished, Calm Eyes: Yes: WNL HENT: Yes: WNL Neck: Yes: WNL Cardiovascular: Yes: Regular Rate and Rhythm, S1, S2 Respiratory: Yes: Rales (FEW BIBASAILR RALES) Gastrointestinal: Yes: Normal Bowel Sounds, Soft Extremities: Yes: WNL Edema: Yes (LUE) Labs: CBC, BMP Problem List - Problems (1) Acute kidney injury superimposed on chronic kidney disease Code(s): N17.9 - ACUTE KIDNEY FAILURE, UNSPECIFIED; N18.9 - CHRONIC KIDNEY DISEASE, UNSPECIFIED (2) Urinary tract infection Code(s): N39.0 - URINARY TRACT INFECTION, SITE NOT SPECIFIED Qualifiers: Urinary tract infection type: site unspecified (3) Abdominal pain Code(s): R10.9 - UNSPECIFIED ABDOMINAL PAIN Qualifiers: Abdominal location: generalized Qualified Code(s): R10.84 - Generalized abdominal pain (4) Abnormal CXR Code(s): R93.89 - ABNORMAL FINDINGS ON DX IMAGING OF OTH BODY STRUCTURES (5) Acute on chronic diastolic (congestive) heart failure Code(s): I50.33 - ACUTE ON CHRONIC DIASTOLIC (CONGESTIVE) HEART FAILURE (6) Anemia Code(s): D64.9 - ANEMIA, UNSPECIFIED (7) CHF exacerbation Code(s): I50.9 - HEART FAILURE, UNSPECIFIED (8) Dementia Code(s): F03.90 - UNSPECIFIED DEMENTIA WITHOUT BEHAVIORAL DISTURBANCE (9) Diabetes Code(s): E11.9 - TYPE 2 DIABETES MELLITUS WITHOUT COMPLICATIONS (10) HLD (hyperlipidemia) Code(s): E78.5 - HYPERLIPIDEMIA, UNSPECIFIED (11) HTN (hypertension) Code(s): I10 - ESSENTIAL (PRIMARY) HYPERTENSION (12) Pleural effusion Code(s): J90 - PLEURAL EFFUSION, NOT ELSEWHERE CLASSIFIED (13) Pulmonary HTN Code(s): I27.20 - PULMONARY HYPERTENSION, UNSPECIFIED (14) SOB (shortness of breath) Code(s): R06.02 - SHORTNESS OF BREATH Assessment/Plan IMP ACUTE HYPOXEMIC RESPIRATORY FAILURE IMPROVED ACUTE ON CHRONIC DIASTOLIC HF IMPROVING ABDOMINAL PAIN IMPROVING HTN ACUTE ON CHRONIC KIDNEY DISEASE PARKINSONS DEMENTIA DONNA NODULE ANEMIA PULMONARY HTN PERICARDIAL EFFUSION UTI PLAN SUPPLEMENTAL O2 INHALED BRONCHODILATORS LASIX ABX MONITOR LYTES,RENAL FUNCTION TREND H+H NORMAL TRANSFUSION THRESHOLD F/U CHEST X-RAYS F/U ECHO MONITOR PERICARDIAL EFFUSION DR CAMPA Problem List - Problems (1) Acute kidney injury superimposed on chronic kidney disease Code(s): N17.9 - ACUTE KIDNEY FAILURE, UNSPECIFIED; N18.9 - CHRONIC KIDNEY DISEASE, UNSPECIFIED (2) Urinary tract infection Code(s): N39.0 - URINARY TRACT INFECTION, SITE NOT SPECIFIED Qualifiers: Urinary tract infection type: site unspecified (3) Abdominal pain Code(s): R10.9 - UNSPECIFIED ABDOMINAL PAIN Qualifiers: Abdominal location: generalized Qualified Code(s): R10.84 - Generalized abdominal pain (4) Abnormal CXR Code(s): R93.89 - ABNORMAL FINDINGS ON DX IMAGING OF OTH BODY STRUCTURES (5) Acute on chronic diastolic (congestive) heart failure Code(s): I50.33 - ACUTE ON CHRONIC DIASTOLIC (CONGESTIVE) HEART FAILURE (6) Anemia Code(s): D64.9 - ANEMIA, UNSPECIFIED (7) CHF exacerbation Code(s): I50.9 - HEART FAILURE, UNSPECIFIED (8) Dementia Code(s): F03.90 - UNSPECIFIED DEMENTIA WITHOUT BEHAVIORAL DISTURBANCE (9) Diabetes Code(s): E11.9 - TYPE 2 DIABETES MELLITUS WITHOUT COMPLICATIONS (10) HLD (hyperlipidemia) Code(s): E78.5 - HYPERLIPIDEMIA, UNSPECIFIED (11) HTN (hypertension) Code(s): I10 - ESSENTIAL (PRIMARY) HYPERTENSION (12) Pleural effusion Code(s): J90 - PLEURAL EFFUSION, NOT ELSEWHERE CLASSIFIED (13) Pulmonary HTN Code(s): I27.20 - PULMONARY HYPERTENSION, UNSPECIFIED (14) SOB (shortness of breath) Code(s): R06.02 - SHORTNESS OF BREATH
[2019-11-30] MEDS ORDERED: PT OWN MED DRAWER 7, Y5N ONE (09:32)
[2019-11-30] MEDS: NIFEdipine E.R. 90 MG TABLET PO SCH (09:34)
[2019-11-30] MEDS: PANTOPRAZOLE 20 MG TABLET PO SCH (09:34)
[2019-11-30] MEDS: TORSEMIDE 20 MG TABLET (FP) PO SCH (09:35)
[2019-11-30] MEDS: ERTAPENEM SODIUM 0.5 GM in SODIUM CHLORIDE 50 ML IVPB SCH (09:35)
[2019-11-30] MEDS: IRON POLYSACCHARIDES 150 MG CAPSULE PO SCH (09:36)
[2019-11-30] MEDS: POLYETHYLENE GLYCOL 3350 119 GM BTL PO SCH ×2 (09:49→21:26)
--- NOTE | 2019-11-30 11:14 | PN ---
Progress Note, Physician Chief Complaint: Abdominal pain Pericardial effusion CKD UTI Anemia HTN History of Present Illness: The patient is a 79-year-old female with dementia, diabetes, hypertension, hyperlipidemia, Parkinson disease, diverticulosis, lower GI bleed, diastolic heart failure, frequent admissions for abdominal pain and fecal impaction and pleural effusions, normal left ventricular systolic function on echo 05/03/2018 without significant valvular abnormalities, bradycardia on labetalol, now presenting with abdominal pain and shortness of breath. Fluid overloaded. NAD, sitting in a chair c/o abd after she eats, poor appetite Last BM as per pt 2 weeks ago? Supposed to be on reglan AC Seen by GI for abd pain CTAP- possible colitis? AXR + constipation Enema given this AM - Current Medication List Current Medications: Active Medications Acetaminophen (Tylenol -) 650 mg PO Q4H PRN PRN Reason: PAIN 1-6 Last Admin: 11/27/19 05:51 Dose: 650 mg Documented by: Albuterol Sulfate (Ventolin Hfa Inhaler -) 2 puff IH Q6H PRN PRN Reason: SHORT OF BREATH/WHEEZING Last Admin: 11/27/19 08:50 Dose: 2 puff Documented by: Atorvastatin Calcium (Lipitor -) 20 mg PO HS [facility] Last Admin: 11/29/19 21:05 Dose: 20 mg Documented by: Bupropion HCl (Wellbutrin Xl -) 150 mg PO DAILY [facility] Last Admin: 11/30/19 09:35 Dose: 150 mg Documented by: Dronabinol (Marinol -) 2.5 mg PO DAILY [facility] Heparin Sodium (Porcine) (Heparin -) 5,000 unit SQ BID [facility] Hydralazine HCl (Apresoline -) 50 mg PO TID [facility] Last Admin: 11/30/19 06:15 Dose: 50 mg Documented by: Ertapenem 0.5 gm/ Sodium (Chloride) 50 mls @ 100 mls/hr IVPB DAILY [facility] Last Admin: 11/30/19 09:35 Dose: 100 mls/hr Documented by: Labetalol HCl (Normodyne -) 200 mg PO TID [facility] Last Admin: 11/24/19 14:19 Dose: 200 mg Documented by: Levothyroxine Sodium (Synthroid -) 25 mcg PO DAILY@0700 [facility] Last Admin: 11/30/19 06:15 Dose: 25 mcg Documented by: Metoclopramide HCl (Reglan -) 10 mg PO TIDAC [facility] Last Admin: 11/30/19 06:15 Dose: 10 mg Documented by: Mirtazapine (Remeron -) 30 mg PO HS [facility] Last Admin: 11/29/19 21:05 Dose: 30 mg Documented by: Multivitamins/Minerals/Vitamin C (Tab-A-Vit -) 1 tab PO DAILY [facility] Nifedipine (Procardia Xl -) 90 mg PO DAILY [facility] Last Admin: 11/30/19 09:34 Dose: 90 mg Documented by: Pantoprazole Sodium (Protonix -) 20 mg PO DAILY [facility] Last Admin: 11/30/19 09:34 Dose: 20 mg Documented by: Polyethylene Glycol (Miralax (For Daily Use) -) 17 gm PO BID [facility] Last Admin: 11/30/19 09:49 Dose: Not Given Documented by: Polysaccharide Iron Complex (Niferex-150 -) 150 mg PO DAILY [facility] Last Admin: 11/30/19 09:36 Dose: 150 mg Documented by: Senna (Senna -) 2 tab PO [facility] Last Admin: 11/29/19 21:15 Dose: Not Given Documented by: Torsemide (Demadex -) 40 mg PO DAILY [facility] Last Admin: 11/30/19 09:35 Dose: 40 mg Documented by: Trazodone HCl (Desyrel -) 50 mg PO [facility] Last Admin: 11/29/19 21:05 Dose: 50 mg Documented by: - Objective Vital Signs: Vital Signs Temperature 98.1 F 11/30/19 09:49 Pulse Rate 86 11/30/19 09:49 Respiratory Rate 18 11/30/19 09:49 Blood Pressure 160/58 L 11/30/19 09:49 O2 Sat by Pulse Oximetry (%) 96 11/30/19 09:49 Labs: CBC, BMP 11/28/19 08:10 11/28/19 08:10 INR, PTT INR 1.08 (0.83-1.09) 11/23/19 16:45 Problem List - Problems (1) Acute kidney injury superimposed on CKD Assessment/Plan: -Nephrology on board -Cr at baseline -Olmesartan (home med) was discontinued Problems reviewed: Yes Code(s): N17.9 - ACUTE KIDNEY FAILURE, UNSPECIFIED; N18.9 - CHRONIC KIDNEY DISEASE, UNSPECIFIED (2) Pericardial effusion Assessment/Plan: -Echo + moderate pericardial effusion -Seen by Cardiology -No pericardiocentesis recommended -Diuresis with torsemide 40 mg po daily -Repeat Echo in 1 month outpatient Problems reviewed: Yes Code(s): I31.3 - PERICARDIAL EFFUSION (NONINFLAMMATORY) (3) Sepsis Assessment/Plan: -Resolved -afebrile -ID consult appreciated -IV Ertapenem day 5 Problems reviewed: Yes Code(s): A41.9 - SEPSIS, UNSPECIFIED ORGANISM (4) Urinary tract infection Assessment/Plan: -UC: Microbiology 11/23/19 16:45 Blood - Peripheral Venous Blood Culture - Preliminary NO GROWTH OBTAINED AFTER 96 HOURS, INCUBATION TO CONTINUE FOR 1 DAYS. 11/23/19 16:55 Blood - Peripheral Venous Blood Culture - Preliminary NO GROWTH OBTAINED AFTER 96 HOURS, INCUBATION TO CONTINUE FOR 1 DAYS. 11/23/19 17:25 Urine - Urine - Catheterized Urine Culture - Final Escherichia Coli Esbl Brass Polisher 11/24/19 14:10 Urine - Urine Clean Catch Legionella Antigen - Final 11/24/19 14:10 Urine - Urine Clean Catch Streptococcus pneumoniae Antigen (M - Final -afebrile -ID consult appreciated -IV Ertapenem day 5 Problems reviewed: Yes Code(s): N39.0 - URINARY TRACT INFECTION, SITE NOT SPECIFIED Qualifiers: Urinary tract infection type: site unspecified (5) Abdominal pain Assessment/Plan: -Improved -Seen by GI -Restarted Reglan 10 mg AC -PPI Problems reviewed: Yes Code(s): R10.9 - UNSPECIFIED ABDOMINAL PAIN Qualifiers: Abdominal location: generalized Qualified Code(s): R10.84 - Generalized abdominal pain (6) Acute on chronic diastolic (congestive) heart failure Assessment/Plan: -Cardiology consult appreciated -Telemetry -Echocardiogram with moderate to large pericardial effusion. Normal EF. No tamponade. -Continue torsemide 40 mg po daily in AM -Restart Labetalol at 100 mg po tid (was taking 200 mg PO tid at home)-was held upon admission due to asymptomatic bradycardia w/ HR of mid 50's Problems reviewed: Yes Code(s): I50.33 - ACUTE ON CHRONIC DIASTOLIC (CONGESTIVE) HEART FAILURE (7) Anemia Assessment/Plan: -chronic -Multifactorial -OLINDA -Injectafer once -Iron polysaccharride 150 mg po daily Problems reviewed: Yes Code(s): D64.9 - ANEMIA, UNSPECIFIED (8) Diabetes Assessment/Plan: -A1c at <3.5 -D/C BGM AC HS -D/C ISS -Change diet to low sodium diet Problems reviewed: Yes Code(s): E11.9 - TYPE 2 DIABETES MELLITUS WITHOUT COMPLICATIONS (9) Constipation Assessment/Plan: -Miralax BID -Senna 2 tabs po HS -Enema x 1 Problems reviewed: Yes Code(s): K59.00 - CONSTIPATION, UNSPECIFIED (10) Failure to thrive Assessment/Plan: -Multivitamin -Mirtazapine -Start Marinol 2.5 mg po daily -Daughter will bring home cooked food. Problems reviewed: Yes Code(s): [id number] - Qualifiers: Failure to thrive age range: in adult Qualified Code(s): R62.7 - Adult failure to thrive (11) Left arm swelling Assessment/Plan: -U/S venous doppler LUE to r/o thrombus -Restrt Heparin SQ BID, was being held due to anemia Problems reviewed: Yes Code(s): M79.89 - OTHER SPECIFIED SOFT TISSUE DISORDERS (12) HTN (hypertension) Assessment/Plan: -Continue torsemide 40 mg po daily in AM -Restart Labetalol at 100 mg po tid (was taking 200 mg PO tid at home)-was held upon admission due to asymptomatic bradycardia w/ HR of mid 50's -Continue hydralazine 50 mg po TID -Olmasartan discontinued due to rising Cr -Nifedipine XL increased to 90 mg po daily Problems reviewed: Yes Code(s): I10 - ESSENTIAL (PRIMARY) HYPERTENSION Assessment/Plan See problem list D/C home on Wednesday Spoke to daughter Linda
--- NOTE | 2019-11-30 11:21 | PN ---
Progress Note, Physician History of Present Illness: Pt seen and examined at bedside. SHe is awake and alert. She denies shortness of breath. - Current Medication List Current Medications: Active Medications Acetaminophen (Tylenol -) 650 mg PO Q4H PRN PRN Reason: PAIN 1-6 Last Admin: 11/27/19 05:51 Dose: 650 mg Documented by: Albuterol Sulfate (Ventolin Hfa Inhaler -) 2 puff IH Q6H PRN PRN Reason: SHORT OF BREATH/WHEEZING Last Admin: 11/27/19 08:50 Dose: 2 puff Documented by: Atorvastatin Calcium (Lipitor -) 20 mg PO [facility] Last Admin: 11/29/19 21:05 Dose: 20 mg Documented by: Bupropion HCl (Wellbutrin Xl -) 150 mg PO DAILY [facility] Last Admin: 11/30/19 09:35 Dose: 150 mg Documented by: Dronabinol (Marinol -) 2.5 mg PO DAILY [facility] Heparin Sodium (Porcine) (Heparin -) 5,000 unit SQ BID [facility] Hydralazine HCl (Apresoline -) 50 mg PO TID [facility] Last Admin: 11/30/19 06:15 Dose: 50 mg Documented by: Ertapenem 0.5 gm/ Sodium (Chloride) 50 mls @ 100 mls/hr IVPB DAILY [facility] Last Admin: 11/30/19 09:35 Dose: 100 mls/hr Documented by: Labetalol HCl (Normodyne -) 200 mg PO TID [facility] Last Admin: 11/24/19 14:19 Dose: 200 mg Documented by: Levothyroxine Sodium (Synthroid -) 25 mcg PO DAILY@0700 [facility] Last Admin: 11/30/19 06:15 Dose: 25 mcg Documented by: Metoclopramide HCl (Reglan -) 10 mg PO TIDAC [facility] Last Admin: 11/30/19 06:15 Dose: 10 mg Documented by: Mirtazapine (Remeron -) 30 mg PO [facility] Last Admin: 11/29/19 21:05 Dose: 30 mg Documented by: Multivitamins/Minerals/Vitamin C (Tab-A-Vit -) 1 tab PO DAILY [facility] Nifedipine (Procardia Xl -) 90 mg PO DAILY [facility] Last Admin: 11/30/19 09:34 Dose: 90 mg Documented by: Pantoprazole Sodium (Protonix -) 20 mg PO DAILY [facility] Last Admin: 11/30/19 09:34 Dose: 20 mg Documented by: Polyethylene Glycol (Miralax (For Daily Use) -) 17 gm PO BID [facility] Last Admin: 11/30/19 09:49 Dose: Not Given Documented by: Polysaccharide Iron Complex (Niferex-150 -) 150 mg PO DAILY [facility] Last Admin: 11/30/19 09:36 Dose: 150 mg Documented by: Senna (Senna -) 2 tab PO [facility] Last Admin: 11/29/19 21:15 Dose: Not Given Documented by: Torsemide (Demadex -) 40 mg PO DAILY [facility] Last Admin: 11/30/19 09:35 Dose: 40 mg Documented by: Trazodone HCl (Desyrel -) 50 mg PO [facility] Last Admin: 11/29/19 21:05 Dose: 50 mg Documented by: - Objective Vital Signs: Vital Signs Temperature 98.1 F 11/30/19 09:49 Pulse Rate 86 11/30/19 09:49 Respiratory Rate 18 11/30/19 09:49 Blood Pressure 160/58 L 11/30/19 09:49 O2 Sat by Pulse Oximetry (%) 96 11/30/19 09:49 Constitutional: Yes: Calm Eyes: Yes: Conjunctiva Clear HENT: Yes: Atraumatic Cardiovascular: Yes: S1, S2 Respiratory: Yes: CTA Bilaterally Gastrointestinal: Yes: Soft Genitourinary: Yes: WNL Edema: Yes Edema: LUE: 1+ Neurological: Yes: Oriented Psychiatric: Yes: Oriented Labs: CBC, BMP 11/28/19 08:10 11/28/19 08:10 INR, PTT INR 1.08 (0.83-1.09) 11/23/19 16:45 Problem List - Problems (1) JASPER (acute kidney injury) Code(s): N17.9 - ACUTE KIDNEY FAILURE, UNSPECIFIED (2) Acute kidney injury superimposed on chronic kidney disease Code(s): N17.9 - ACUTE KIDNEY FAILURE, UNSPECIFIED; N18.9 - CHRONIC KIDNEY DISEASE, UNSPECIFIED (3) CHF (congestive heart failure) Code(s): I50.9 - HEART FAILURE, UNSPECIFIED Qualifiers: (4) CHF exacerbation Code(s): I50.9 - HEART FAILURE, UNSPECIFIED (5) CKD (chronic kidney disease) Code(s): N18.9 - CHRONIC KIDNEY DISEASE, UNSPECIFIED (6) Dementia Code(s): F03.90 - UNSPECIFIED DEMENTIA WITHOUT BEHAVIORAL DISTURBANCE (7) Diverticulosis Code(s): K57.90 - DVRTCLOS OF INTEST, PART UNSP, W/O PERF OR ABSCESS W/O BLEED Assessment/Plan Current Medications Generic Name Dose Route Start Last Admin Trade Name Freq PRN Reason Stop Dose Admin Acetaminophen 650 mg 11/24/19 15:25 11/27/19 05:51 Tylenol - PO 650 mg Q4H PRN Administration PAIN 1-6 Albuterol Sulfate 2 puff 11/23/19 20:02 11/27/19 08:50 Ventolin Hfa Inhaler - IH 2 puff Q6H PRN Administration SHORT OF BREATH/WHEEZING Atorvastatin Calcium 20 mg 11/24/19 22:00 11/29/19 21:05 Lipitor - PO 20 mg HS JOYCE Administration Bupropion HCl 150 mg 11/24/19 10:00 11/30/19 09:35 Wellbutrin Xl - PO 150 mg DAILY [facility] Administration Dronabinol 2.5 mg 11/30/19 11:15 Marinol - PO DAILY [facility] Heparin Sodium (Porcine) 5,000 unit 11/30/19 11:00 Heparin - SQ BID [facility] Hydralazine HCl 50 mg 11/24/19 14:00 11/30/19 06:15 Apresoline - PO 50 mg TID JOYCE Administration Ertapenem 0.5 gm/ Sodium 50 mls @ 100 mls/hr 11/26/19 18:45 11/30/19 09:35 Chloride IVPB 100 mls/hr DAILY [facility]YOCE Administration Labetalol HCl 200 mg 11/24/19 14:00 11/24/19 14:19 Normodyne - PO 200 mg TID JOYCE Administration Levothyroxine Sodium 25 mcg 11/24/19 07:00 11/30/19 06:15 Synthroid - PO 25 mcg DAILY@0700 JOYCE Administration Metoclopramide HCl 10 mg 11/28/19 16:30 11/30/19 06:15 Reglan - PO 10 mg TIDAC JOYCE Administration Mirtazapine 30 mg 11/24/19 22:00 11/29/19 21:05 Remeron - PO 30 mg HS JOYCE Administration Multivitamins/Minerals/Vitamin C 1 tab 11/30/19 11:15 Tab-A-Vit - PO DAILY [facility] Nifedipine 90 mg 11/25/19 11:30 11/30/19 09:34 Procardia Xl - PO 90 mg DAILY [facility] Administration Pantoprazole Sodium 20 mg 11/25/19 10:00 11/30/19 09:34 Protonix - PO 20 mg DAILY [facility] Administration Polyethylene Glycol 17 gm 11/29/19 22:00 11/30/19 09:49 Miralax (For Daily Use) - PO Not Given BID JOYCE Polysaccharide Iron Complex 150 mg 11/28/19 15:00 11/30/19 09:36 Niferex-150 - PO 150 mg DAILY [facility] Administration Senna 2 tab 11/28/19 22:00 11/29/19 21:15 Senna - PO Not Given HS JOYCE Torsemide 40 mg 11/29/19 10:00 11/30/19 09:35 Demadex - PO 40 mg DAILY [facility] Administration Trazodone HCl 50 mg 11/24/19 22:00 11/29/19 21:05 Desyrel - PO 50 mg HS JOYCE Administration Impression 1. JASPER 2. CKD 3. HLD 4. diverticulosis 5. HTN 6. DM 7. proteinuria 8. hypoalbuminemia 9. UTI 10. pleural effusion 11. chf 12. pericardial effusion without tamponade 13. fluid overload Impression - follow bmp - cont torsemide - change IV from left arm - follow left arm duplex - monitor renal function - cardio input appreciated - arb on hold until renal function stabilizes
[2019-11-30] MEDS: HEPARIN NA (PORCINE) 5,000 UNITS/ML 1ML VIAL SQ SCH ×2 (11:53→21:23)
[2019-11-30] MEDS: MULTIVITAMINS (DAILY MVI) TABLET (FP) PO SCH (11:53)
[2019-11-30] MEDS ORDERED: MAG HYDROX/AL HYDROX/SIMETH 30 ML UNIT-DOSE CUP PO PRN (12:17)
[2019-11-30] MEDS: DRONABINOL 2.5 MG CAPSULE PO SCH (12:44)
[2019-11-30] MEDS: LABETALOL HCL 100 MG TABLET (FP) PO SCH ×2 (13:34→21:22)
[2019-11-30] MEDS: DICYCLOMINE HCL 10 MG CAPSULE PO PRN (15:22)
[2019-11-30 17:15] LABS: BASO % 0.7 % (0-2.0); EOS % 4.8 % (0-4.5); HEMATOCRIT 23.2 % (32.4-45.2); HEMOGLOBIN 7.5 GM/dL (10.7-15.3); LYMPH % 6.6 % (8-40); MCH 26.4 pg (25.7-33.7); MCHC 32.2 g/dl (32.0-36.0); MEAN PLT VOLUME 6.8 fl (7.5-11.1); MONO % 10.8 % (3.8-10.2); NEUT % 77.1 % (42.8-82.8); PLATELET COUNT 389 K/MM3 (134-434); RBC 2.83 M/mm3 (3.60-5.2); RDW 18.1 % (11.6-15.6); WHITE BLOOD COUNT 8.2 K/mm3 (4.0-10.0)
[2019-11-30 17:42] LABS: ALBUMIN 2.9 g/dl (3.4-5.0); BILIRUBIN,TOTAL 0.4 mg/dL (0.2-1); BLOOD UREA NITROGEN 36.6 mg/dL (7-18); CALCIUM 8.4 mg/dL (8.5-10.1); CREATININE 2.9 mg/dL (0.55-1.3); POTASSIUM 3.5 mmol/L (3.5-5.1); TOT PROT 5.9 g/dl (6.4-8.2)
[2019-11-30] MEDS: traZODone HCL 50 MG TABLET (FP) PO SCH (21:21)
[2019-11-30] MEDS: ATORVASTATIN CA 20 MG TABLET (FP) PO SCH (21:21)
[2019-11-30] MEDS: SENNOSIDES 8.6MG TABLET (FP) PO SCH (21:22)
[2019-11-30] MEDS: ACETAMINOPHEN 325 MG TABLET (FP) PO PRN (21:22)
[2019-11-30] MEDS: MIRTAZAPINE 30 MG TABLET PO SCH (21:26)
[2019-12-01] MEDS: LABETALOL HCL 100 MG TABLET (FP) PO SCH (06:00)
[2019-12-01] MEDS: METOCLOPRAMIDE HCL 10 MG TABLET (FP) PO SCH ×3 (06:00→16:05)
[2019-12-01] MEDS: hydrALAZINE HCL 50 MG TABLET (FP) PO SCH ×3 (06:00→21:42)
[2019-12-01] MEDS: LEVOTHYROXINE NA 25 MCG TABLET (FP) PO SCH (06:00)
[2019-12-01 06:35] LABS: BASO % 0.8 % (0-2.0); EOS % 3.7 % (0-4.5); HEMOGLOBIN 8.2 GM/dL (10.7-15.3); LYMPH % 5.9 % (8-40); MCH 26.8 pg (25.7-33.7); MCHC 32.9 g/dl (32.0-36.0); MEAN CELL VOLUME 81.4 fl (80-96); MONO % 7.1 % (3.8-10.2); NEUT % 82.5 % (42.8-82.8); PLATELET COUNT 438 K/MM3 (134-434); RBC 3.07 M/mm3 (3.60-5.2); RDW 17.8 % (11.6-15.6); WHITE BLOOD COUNT 8.2 K/mm3 (4.0-10.0)
[2019-12-01 07:01] LABS: ALBUMIN 3.2 g/dl (3.4-5.0); BILIRUBIN,TOTAL 0.4 mg/dL (0.2-1); BLOOD UREA NITROGEN 42.6 mg/dL (7-18); CALCIUM 8.4 mg/dL (8.5-10.1); CREATININE 2.8 mg/dL (0.55-1.3); POTASSIUM 3.6 mmol/L (3.5-5.1); TOT PROT 6.7 g/dl (6.4-8.2)
[2019-12-01] MEDS ORDERED: PT OWN MED DRAWER 7, Y5N ONE (09:06)
[2019-12-01] MEDS: PANTOPRAZOLE 20 MG TABLET PO SCH (09:10)
[2019-12-01] MEDS: NIFEdipine E.R. 90 MG TABLET PO SCH (09:10)
[2019-12-01] MEDS: TORSEMIDE 20 MG TABLET (FP) PO SCH (09:10)
[2019-12-01] MEDS: DRONABINOL 2.5 MG CAPSULE PO SCH (09:10)
[2019-12-01] MEDS: MULTIVITAMINS (DAILY MVI) TABLET (FP) PO SCH (09:10)
[2019-12-01] MEDS: DICYCLOMINE HCL 10 MG CAPSULE PO PRN (09:11)
[2019-12-01] MEDS: HEPARIN NA (PORCINE) 5,000 UNITS/ML 1ML VIAL SQ SCH ×2 (09:11→21:42)
[2019-12-01] MEDS: IRON POLYSACCHARIDES 150 MG CAPSULE PO SCH (09:11)
[2019-12-01] MEDS: POLYETHYLENE GLYCOL 3350 119 GM BTL PO SCH ×2 (09:13→21:42)
--- NOTE | 2019-12-01 10:19 | PN ---
Progress Note, Physician Chief Complaint: Abdominal pain Pericardial effusion CKD UTI Anemia HTN History of Present Illness: The patient is a 79-year-old female with dementia, diabetes, hypertension, hyperlipidemia, Parkinson disease, diverticulosis, lower GI bleed, diastolic heart failure, frequent admissions for abdominal pain and fecal impaction and pleural effusions, normal left ventricular systolic function on echo 05/03/2018 without significant valvular abnormalities, bradycardia on labetalol, now presenting with abdominal pain and shortness of breath. Fluid overloaded. NAD, sitting in a chair Had BM last evening On IV ertapenem day 08/26 - Current Medication List Current Medications: Active Medications Acetaminophen (Tylenol -) 650 mg PO Q4H PRN PRN Reason: PAIN 1-6 Last Admin: 11/30/19 21:22 Dose: 650 mg Documented by: Al Hydroxide/Mg Hydroxide (Mylanta Oral Suspension -) 30 ml PO Q6H PRN PRN Reason: DYSPEPSIA Albuterol Sulfate (Ventolin Hfa Inhaler -) 2 puff IH Q6H PRN PRN Reason: SHORT OF BREATH/WHEEZING Last Admin: 11/27/19 08:50 Dose: 2 puff Documented by: Atorvastatin Calcium (Lipitor -) 20 mg PO HS [facility] Last Admin: 11/30/19 21:21 Dose: 20 mg Documented by: Bupropion HCl (Wellbutrin Xl -) 150 mg PO DAILY [facility] Last Admin: 12/01/19 09:10 Dose: 150 mg Documented by: Dicyclomine HCl (Bentyl -) 10 mg PO Q6H PRN PRN Reason: MUSCLE SPASMS Last Admin: 12/01/19 09:11 Dose: 10 mg Documented by: Dronabinol (Marinol -) 2.5 mg PO DAILY [facility] Last Admin: 12/01/19 09:10 Dose: 2.5 mg Documented by: Heparin Sodium (Porcine) (Heparin -) 5,000 unit SQ BID [facility] Last Admin: 12/01/19 09:11 Dose: 5,000 unit Documented by: Hydralazine HCl (Apresoline -) 50 mg PO TID [facility] Last Admin: 12/01/19 06:00 Dose: 50 mg Documented by: Ertapenem 0.5 gm/ Sodium (Chloride) 50 mls @ 100 mls/hr IVPB DAILY [facility] Last Admin: 11/30/19 09:35 Dose: 100 mls/hr Documented by: Labetalol HCl (Normodyne -) 200 mg PO TID [facility] Levothyroxine Sodium (Synthroid -) 25 mcg PO DAILY@0700 [facility] Last Admin: 12/01/19 06:00 Dose: 25 mcg Documented by: Metoclopramide HCl (Reglan -) 10 mg PO TIDAC [facility] Last Admin: 12/01/19 06:00 Dose: 10 mg Documented by: Mirtazapine (Remeron -) 30 mg PO [facility] Last Admin: 11/30/19 21:26 Dose: 30 mg Documented by: Multivitamins/Minerals/Vitamin C (Tab-A-Vit -) 1 tab PO DAILY [facility] Last Admin: 12/01/19 09:10 Dose: 1 tab Documented by: Nifedipine (Procardia Xl -) 90 mg PO DAILY [facility] Last Admin: 12/01/19 09:10 Dose: 90 mg Documented by: Pantoprazole Sodium (Protonix -) 20 mg PO DAILY [facility] Last Admin: 12/01/19 09:10 Dose: 20 mg Documented by: Polyethylene Glycol (Miralax (For Daily Use) -) 17 gm PO BID [facility] Last Admin: 12/01/19 09:13 Dose: Not Given Documented by: Polysaccharide Iron Complex (Niferex-150 -) 150 mg PO DAILY [facility] Last Admin: 12/01/19 09:11 Dose: 150 mg Documented by: Senna (Senna -) 2 tab PO [facility] Last Admin: 11/30/19 21:22 Dose: 2 tab Documented by: Torsemide (Demadex -) 40 mg PO DAILY [facility] Last Admin: 12/01/19 09:10 Dose: 40 mg Documented by: Trazodone HCl (Desyrel -) 50 mg PO [facility] Last Admin: 11/30/19 21:21 Dose: 50 mg Documented by: - Objective Vital Signs: Vital Signs Temperature 98.1 F 12/01/19 09:07 Pulse Rate 74 12/01/19 09:07 Respiratory Rate 20 12/01/19 09:07 Blood Pressure 188/71 H 12/01/19 09:07 O2 Sat by Pulse Oximetry (%) 95 12/01/19 09:07 Constitutional: Yes: Well Nourished, No Distress, Calm Cardiovascular: Yes: Regular Rate and Rhythm Respiratory: Yes: Regular, CTA Bilaterally Gastrointestinal: Yes: Normal Bowel Sounds, Soft Genitourinary: Yes: Incontinence Musculoskeletal: Yes: Muscle Weakness Extremities: Yes: WNL Edema: No Peripheral Pulses WNL: Yes Neurological: Yes: Alert, Oriented Psychiatric: Yes: Alert, Oriented Labs: CBC, BMP 12/01/19 05:47 12/01/19 05:47 INR, PTT INR 1.08 (0.83-1.09) 11/23/19 16:45 Problem List - Problems (1) Acute kidney injury superimposed on CKD Assessment/Plan: -Nephrology on board -Cr at baseline -Olmesartan (home med) was discontinued due to rise in Cr Problems reviewed: Yes Code(s): N17.9 - ACUTE KIDNEY FAILURE, UNSPECIFIED; N18.9 - CHRONIC KIDNEY DISEASE, UNSPECIFIED (2) Pericardial effusion Assessment/Plan: -Echo + moderate pericardial effusion -Seen by Cardiology -No pericardiocentesis recommended -Diuresis with torsemide 40 mg po daily -Repeat Echo in 1 month outpatient Problems reviewed: Yes Code(s): I31.3 - PERICARDIAL EFFUSION (NONINFLAMMATORY) (3) Sepsis Assessment/Plan: -Resolved -afebrile -ID consult appreciated -IV Ertapenem day 67 Problems reviewed: Yes Code(s): A41.9 - SEPSIS, UNSPECIFIED ORGANISM (4) Urinary tract infection Assessment/Plan: -UC: Microbiology 11/23/19 16:45 Blood - Peripheral Venous Blood Culture - Preliminary NO GROWTH OBTAINED AFTER 96 HOURS, INCUBATION TO CONTINUE FOR 1 DAYS. 11/23/19 16:55 Blood - Peripheral Venous Blood Culture - Preliminary NO GROWTH OBTAINED AFTER 96 HOURS, INCUBATION TO CONTINUE FOR 1 DAYS. 11/23/19 17:25 Urine - Urine - Catheterized Urine Culture - Final Escherichia Coli Esbl Flaring Machine Operator 11/24/19 14:10 Urine - Urine Clean Catch Legionella Antigen - Final 11/24/19 14:10 Urine - Urine Clean Catch Streptococcus pneumoniae Antigen (M - Final -afebrile -ID consult appreciated -IV Ertapenem day 6/7 Problems reviewed: Yes Code(s): N39.0 - URINARY TRACT INFECTION, SITE NOT SPECIFIED Qualifiers: Urinary tract infection type: site unspecified (5) Abdominal pain Assessment/Plan: -Improved -Seen by GI -Restarted Reglan 10 mg AC -PPI -Dicyclomine Problems reviewed: Yes Code(s): R10.9 - UNSPECIFIED ABDOMINAL PAIN Qualifiers: Abdominal location: generalized Qualified Code(s): R10.84 - Generalized abdominal pain (6) Acute on chronic diastolic (congestive) heart failure Assessment/Plan: -Cardiology consult appreciated -Telemetry -Echocardiogram with moderate to large pericardial effusion. Normal EF. No tamponade. -Continue torsemide 40 mg po daily in AM -Increase Labetalol to 200 mg po tid -was held upon admission due to asymptomatic bradycardia w/ HR of mid 50's Problems reviewed: Yes Code(s): I50.33 - ACUTE ON CHRONIC DIASTOLIC (CONGESTIVE) HEART FAILURE (7) Anemia Assessment/Plan: -chronic -Multifactorial -H/H improved -OLINDA -Injectafer once yesterday -Iron polysaccharride 150 mg po daily Problems reviewed: Yes Code(s): D64.9 - ANEMIA, UNSPECIFIED (8) Diabetes Assessment/Plan: -A1c at <3.5 -D/C BGM AC HS -D/C ISS -Change diet to low sodium diet Problems reviewed: Yes Code(s): E11.9 - TYPE 2 DIABETES MELLITUS WITHOUT COMPLICATIONS (9) Constipation Assessment/Plan: -Miralax BID -Senna 2 tabs po HS Problems reviewed: Yes Code(s): K59.00 - CONSTIPATION, UNSPECIFIED (10) Failure to thrive Assessment/Plan: -Multivitamin -Mirtazapine -Started Marinol 2.5 mg po daily (was on it at home) -Daughter will bring home cooked food. Problems reviewed: Yes Code(s): BHZ3305 - Qualifiers: Failure to thrive age range: in adult Qualified Code(s): R62.7 - Adult failure to thrive (11) Left arm swelling Assessment/Plan: -U/S venous doppler LUE negative for DVT -Restart Heparin SQ BID for dvt ppx, was being held due to anemia -Elevate arm Problems reviewed: Yes Code(s): M79.89 - OTHER SPECIFIED SOFT TISSUE DISORDERS (12) HTN (hypertension) Assessment/Plan: -Continue torsemide 40 mg po daily in AM -Increase Labetalol to200 mg po tid -was held upon admission due to asymptomatic bradycardia w/ HR of mid 50's -Continue hydralazine 50 mg po TID- can be titrated up to keep BP goal <160/90 -Olmasartan discontinued due to rising Cr -Nifedipine XL increased to 90 mg po daily Problems reviewed: Yes Code(s): I10 - ESSENTIAL (PRIMARY) HYPERTENSION Assessment/Plan See problem list D/C home on Wednesday after her last dose of ertapenem
[2019-12-01] MEDS: ERTAPENEM SODIUM 0.5 GM in SODIUM CHLORIDE 50 ML IVPB SCH (10:46)
--- NOTE | 2019-12-01 12:12 | PN ---
Progress Note, Physician History of Present Illness: Pt seen and examined at bedside. She is awake and alert. She feels that her breathing is improved. - Current Medication List Current Medications: Active Medications Acetaminophen (Tylenol -) 650 mg PO Q4H PRN PRN Reason: PAIN 1-6 Last Admin: 11/30/19 21:22 Dose: 650 mg Documented by: Al Hydroxide/Mg Hydroxide (Mylanta Oral Suspension -) 30 ml PO Q6H PRN PRN Reason: DYSPEPSIA Albuterol Sulfate (Ventolin Hfa Inhaler -) 2 puff IH Q6H PRN PRN Reason: SHORT OF BREATH/WHEEZING Last Admin: 11/27/19 08:50 Dose: 2 puff Documented by: Atorvastatin Calcium (Lipitor -) 20 mg PO HS [facility] Last Admin: 11/30/19 21:21 Dose: 20 mg Documented by: Bupropion HCl (Wellbutrin Xl -) 150 mg PO DAILY [facility] Last Admin: 12/01/19 09:10 Dose: 150 mg Documented by: Dicyclomine HCl (Bentyl -) 10 mg PO Q6H PRN PRN Reason: MUSCLE SPASMS Last Admin: 12/01/19 09:11 Dose: 10 mg Documented by: Dronabinol (Marinol -) 2.5 mg PO DAILY [facility] Last Admin: 12/01/19 09:10 Dose: 2.5 mg Documented by: Heparin Sodium (Porcine) (Heparin -) 5,000 unit SQ BID [facility] Last Admin: 12/01/19 09:11 Dose: 5,000 unit Documented by: Hydralazine HCl (Apresoline -) 50 mg PO TID [facility] Last Admin: 12/01/19 06:00 Dose: 50 mg Documented by: Ertapenem 0.5 gm/ Sodium (Chloride) 50 mls @ 100 mls/hr IVPB DAILY [facility] Last Admin: 12/01/19 10:46 Dose: 100 mls/hr Documented by: Labetalol HCl (Normodyne -) 200 mg PO TID [facility] Levothyroxine Sodium (Synthroid -) 25 mcg PO DAILY@0700 [facility] Last Admin: 12/01/19 06:00 Dose: 25 mcg Documented by: Metoclopramide HCl (Reglan -) 10 mg PO TIDAC [facility] Last Admin: 12/01/19 10:46 Dose: 10 mg Documented by: Mirtazapine (Remeron -) 30 mg PO [facility] Last Admin: 11/30/19 21:26 Dose: 30 mg Documented by: Multivitamins/Minerals/Vitamin C (Tab-A-Vit -) 1 tab PO DAILY [facility] Last Admin: 12/01/19 09:10 Dose: 1 tab Documented by: Nifedipine (Procardia Xl -) 90 mg PO DAILY [facility] Last Admin: 12/01/19 09:10 Dose: 90 mg Documented by: Pantoprazole Sodium (Protonix -) 20 mg PO DAILY [facility] Last Admin: 12/01/19 09:10 Dose: 20 mg Documented by: Polyethylene Glycol (Miralax (For Daily Use) -) 17 gm PO BID [facility] Last Admin: 12/01/19 09:13 Dose: Not Given Documented by: Polysaccharide Iron Complex (Niferex-150 -) 150 mg PO DAILY [facility] Last Admin: 12/01/19 09:11 Dose: 150 mg Documented by: Senna (Senna -) 2 tab PO [facility] Last Admin: 11/30/19 21:22 Dose: 2 tab Documented by: Torsemide (Demadex -) 40 mg PO DAILY [facility] Last Admin: 12/01/19 09:10 Dose: 40 mg Documented by: Trazodone HCl (Desyrel -) 50 mg PO [facility] Last Admin: 11/30/19 21:21 Dose: 50 mg Documented by: - Objective Vital Signs: Vital Signs Temperature 98.1 F 12/01/19 09:07 Pulse Rate 74 12/01/19 09:07 Respiratory Rate 20 12/01/19 09:07 Blood Pressure 188/71 H 12/01/19 09:07 O2 Sat by Pulse Oximetry (%) 95 12/01/19 09:07 Constitutional: Yes: Calm Eyes: Yes: Conjunctiva Clear HENT: Yes: Atraumatic Neck: Yes: Supple Cardiovascular: Yes: S1, S2 Respiratory: Yes: CTA Bilaterally Gastrointestinal: Yes: Soft Genitourinary: Yes: WNL Musculoskeletal: Yes: WNL Edema: LLE: Trace, RLE: Trace Integumentary: Yes: Venous Stasis Changes Neurological: Yes: Oriented Psychiatric: Yes: Oriented Labs: CBC, BMP 12/01/19 05:47 12/01/19 05:47 INR, PTT INR 1.08 (0.83-1.09) 11/23/19 16:45 Problem List - Problems (1) JASPER (acute kidney injury) Code(s): N17.9 - ACUTE KIDNEY FAILURE, UNSPECIFIED (2) Acute kidney injury superimposed on chronic kidney disease Code(s): N17.9 - ACUTE KIDNEY FAILURE, UNSPECIFIED; N18.9 - CHRONIC KIDNEY DISEASE, UNSPECIFIED (3) CHF (congestive heart failure) Code(s): I50.9 - HEART FAILURE, UNSPECIFIED Qualifiers: (4) CHF exacerbation Code(s): I50.9 - HEART FAILURE, UNSPECIFIED (5) CKD (chronic kidney disease) Code(s): N18.9 - CHRONIC KIDNEY DISEASE, UNSPECIFIED (6) Dementia Code(s): F03.90 - UNSPECIFIED DEMENTIA WITHOUT BEHAVIORAL DISTURBANCE (7) Diverticulosis Code(s): K57.90 - DVRTCLOS OF INTEST, PART UNSP, W/O PERF OR ABSCESS W/O BLEED Assessment/Plan Current Medications Generic Name Dose Route Start Last Admin Trade Name Freq PRN Reason Stop Dose Admin Acetaminophen 650 mg 11/24/19 15:25 11/30/19 21:22 Tylenol - PO 650 mg Q4H PRN Administration PAIN 1-6 Al Hydroxide/Mg Hydroxide 30 ml 11/30/19 12:17 Mylanta Oral Suspension - PO Q6H PRN DYSPEPSIA Albuterol Sulfate 2 puff 11/23/19 20:02 11/27/19 08:50 Ventolin Hfa Inhaler - IH 2 puff Q6H PRN Administration SHORT OF BREATH/WHEEZING Atorvastatin Calcium 20 mg 11/24/19 22:00 11/30/19 21:21 Lipitor - PO 20 mg HS JOYCE Administration Bupropion HCl 150 mg 11/24/19 10:00 12/01/19 09:10 Wellbutrin Xl - PO 150 mg DAILY JOYCE Administration Dicyclomine HCl 10 mg 11/30/19 12:16 12/01/19 09:11 Bentyl - PO 10 mg Q6H PRN Administration MUSCLE SPASMS Dronabinol 2.5 mg 11/30/19 11:15 12/01/19 09:10 Marinol - PO 2.5 mg DAILY JOYCE Administration Heparin Sodium (Porcine) 5,000 unit 11/30/19 11:00 12/01/19 09:11 Heparin - SQ 5,000 unit BID JOYCE Administration Hydralazine HCl 50 mg 11/24/19 14:00 12/01/19 06:00 Apresoline - PO 50 mg TID JOYCE Administration Ertapenem 0.5 gm/ Sodium 50 mls @ 100 mls/hr 11/26/19 18:45 12/01/19 10:46 Chloride IVPB 100 mls/hr DAILY JOYCE Administration Labetalol HCl 200 mg 12/01/19 10:13 Normodyne - PO TID JOYCE Levothyroxine Sodium 25 mcg 11/24/19 07:00 12/01/19 06:00 Synthroid - PO 25 mcg DAILY@0700 JOYCE Administration Metoclopramide HCl 10 mg 11/28/19 16:30 12/01/19 10:46 Reglan - PO 10 mg TIDAC JOYCE Administration Mirtazapine 30 mg 11/24/19 22:00 11/30/19 21:26 Remeron - PO 30 mg HS JOYCE Administration Multivitamins/Minerals/Vitamin C 1 tab 11/30/19 11:15 12/01/19 09:10 Tab-A-Vit - PO 1 tab DAILY JOYCE Administration Nifedipine 90 mg 11/25/19 11:30 12/01/19 09:10 Procardia Xl - PO 90 mg DAILY JOYCE Administration Pantoprazole Sodium 20 mg 11/25/19 10:00 12/01/19 09:10 Protonix - PO 20 mg DAILY JOYCE Administration Polyethylene Glycol 17 gm 11/29/19 22:00 12/01/19 09:13 Miralax (For Daily Use) - PO Not Given BID JOYCE Polysaccharide Iron Complex 150 mg 11/28/19 15:00 12/01/19 09:11 Niferex-150 - PO 150 mg DAILY JOYCE Administration Senna 2 tab 11/28/19 22:00 11/30/19 21:22 Senna - PO 2 tab HS JOYCE Administration Torsemide 40 mg 11/29/19 10:00 12/01/19 09:10 Demadex - PO 40 mg DAILY JOYCE Administration Trazodone HCl 50 mg 11/24/19 22:00 11/30/19 21:21 Desyrel - PO 50 mg HS JOYCE Administration Impression 1. JASPER 2. CKD 3. HLD 4. diverticulosis 5. HTN 6. DM 7. proteinuria 8. hypoalbuminemia 9. UTI 10. pleural effusion 11. chf 12. pericardial effusion without tamponade 13. 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
--- NOTE | 2019-12-01 12:41 | PN ---
Progress Note, Physician History of Present Illness: seen and examined today in nad. no overnight events. no new complaints. - Current Medication List Current Medications: Active Medications Acetaminophen (Tylenol -) 650 mg PO Q4H PRN PRN Reason: PAIN 1-6 Last Admin: 11/30/19 21:22 Dose: 650 mg Documented by: Al Hydroxide/Mg Hydroxide (Mylanta Oral Suspension -) 30 ml PO Q6H PRN PRN Reason: DYSPEPSIA Albuterol Sulfate (Ventolin Hfa Inhaler -) 2 puff IH Q6H PRN PRN Reason: SHORT OF BREATH/WHEEZING Last Admin: 11/27/19 08:50 Dose: 2 puff Documented by: Atorvastatin Calcium (Lipitor -) 20 mg PO HS [facility] Last Admin: 11/30/19 21:21 Dose: 20 mg Documented by: Bupropion HCl (Wellbutrin Xl -) 150 mg PO DAILY [facility] Last Admin: 12/01/19 09:10 Dose: 150 mg Documented by: Dicyclomine HCl (Bentyl -) 10 mg PO Q6H PRN PRN Reason: MUSCLE SPASMS Last Admin: 12/01/19 09:11 Dose: 10 mg Documented by: Dronabinol (Marinol -) 2.5 mg PO DAILY [facility] Last Admin: 12/01/19 09:10 Dose: 2.5 mg Documented by: Heparin Sodium (Porcine) (Heparin -) 5,000 unit SQ BID [facility] Last Admin: 12/01/19 09:11 Dose: 5,000 unit Documented by: Hydralazine HCl (Apresoline -) 50 mg PO TID [facility] Last Admin: 12/01/19 06:00 Dose: 50 mg Documented by: Ertapenem 0.5 gm/ Sodium (Chloride) 50 mls @ 100 mls/hr IVPB DAILY [facility] Last Admin: 12/01/19 10:46 Dose: 100 mls/hr Documented by: Labetalol HCl (Normodyne -) 200 mg PO TID [facility] Levothyroxine Sodium (Synthroid -) 25 mcg PO DAILY@0700 [facility] Last Admin: 12/01/19 06:00 Dose: 25 mcg Documented by: Metoclopramide HCl (Reglan -) 10 mg PO TIDAC [facility] Last Admin: 12/01/19 10:46 Dose: 10 mg Documented by: Mirtazapine (Remeron -) 30 mg PO HS [facility] Last Admin: 11/30/19 21:26 Dose: 30 mg Documented by: Multivitamins/Minerals/Vitamin C (Tab-A-Vit -) 1 tab PO DAILY [facility] Last Admin: 12/01/19 09:10 Dose: 1 tab Documented by: Nifedipine (Procardia Xl -) 90 mg PO DAILY [facility] Last Admin: 12/01/19 09:10 Dose: 90 mg Documented by: Pantoprazole Sodium (Protonix -) 20 mg PO DAILY [facility] Last Admin: 12/01/19 09:10 Dose: 20 mg Documented by: Polyethylene Glycol (Miralax (For Daily Use) -) 17 gm PO BID [facility] Last Admin: 12/01/19 09:13 Dose: Not Given Documented by: Polysaccharide Iron Complex (Niferex-150 -) 150 mg PO DAILY [facility] Last Admin: 12/01/19 09:11 Dose: 150 mg Documented by: Senna (Senna -) 2 tab PO [facility] Last Admin: 11/30/19 21:22 Dose: 2 tab Documented by: Torsemide (Demadex -) 40 mg PO DAILY [facility] Last Admin: 12/01/19 09:10 Dose: 40 mg Documented by: Trazodone HCl (Desyrel -) 50 mg PO [facility] Last Admin: 11/30/19 21:21 Dose: 50 mg Documented by: - Objective Vital Signs: Vital Signs Temperature 98.1 F 12/01/19 09:07 Pulse Rate 74 12/01/19 09:07 Respiratory Rate 20 12/01/19 09:07 Blood Pressure 188/71 H 12/01/19 09:07 O2 Sat by Pulse Oximetry (%) 95 12/01/19 09:07 Constitutional: Yes: No Distress, Calm Eyes: Yes: Conjunctiva Clear, EOM Intact HENT: Yes: Atraumatic, Normocephalic Neck: Yes: Supple, Trachea Midline Cardiovascular: Yes: Regular Rate and Rhythm, S1, S2. No: Bradycardia, Tachycardia, Pulse Irregular, Bruit, JVD, Gallop, Murmur, Rub, S3, S4, Varicosities Respiratory: Yes: Regular, CTA Bilaterally. No: Rales, Rhonchi, SOB, Wheezes Gastrointestinal: Yes: Normal Bowel Sounds, Soft. No: Distention, Tenderness Extremities: Yes: WNL Edema: No Peripheral Pulses: Left Doralis Pedis: 2+, Right Dorsalis Pedis: 2+ Neurological: Yes: Alert Psychiatric: Yes: Alert Labs: CBC, BMP 12/01/19 05:47 12/01/19 05:47 INR, PTT INR 1.08 (0.83-1.09) 11/23/19 16:45 - ....Imaging Chest X-ray: Report Reviewed, Image Reviewed EKG: Report Reviewed, Image Reviewed Other: Report Reviewed, Image Reviewed (tele-no sig pauses HR adequately controlled) Assessment/Plan The patient is a 79-year-old female with dementia, diabetes, hypertension, hyperlipidemia, Parkinson disease, diverticulosis, lower GI bleed, diastolic heart failure, frequent admissions for abdominal pain and fecal impaction and pleural effusions, normal left ventricular systolic function on echo 05/03/2018 without significant valvular abnormalities, bradycardia on labetalol, now presenting with abdominal pain and shortness of breath. Fluid overloaded. Pericardial effusion with preserved biventricular function and no sings of tamponade. -No indication for pericardial tamponade. Would defer pericardiocentesis. -cont Torsemide 40mg daily -plan to repeat echo as outpatient unless clinical change while inpatient HTN-has been adequate, mildly elevated, above goal today -Labetalol increased to 200mg tid, would not uptitrate further at this time to avoid bradycardia -if repeat BP today remains sig uncontrolled can uptitrate nifedipine to 120mg daily Please call with any questions.
[2019-12-01] MEDS: LABETALOL HCL 200 MG TABLET (FP) PO SCH ×2 (13:06→21:43)
--- NOTE | 2019-12-01 16:05 | PN ---
Progress Note (short form) - Note Progress Note: Resting in NAD. Breathing improving. No acute events overnight. Intake & Output 11/28/19 11/29/19 11/30/19 12/01/19 23:59 23:59 23:59 23:59 Intake Total 820 580 400 120 Output Total 200 Balance 620 580 400 120 Last Vital Signs Temp Pulse Resp BP Pulse Ox 98.1 F 60 18 156/59 L 96 12/01/19 13:00 12/01/19 15:11 12/01/19 15:11 12/01/19 15:11 12/01/19 13:00 Active Medications Acetaminophen (Tylenol -) 650 mg PO Q4H PRN PRN Reason: PAIN 1-6 Last Admin: 11/30/19 21:22 Dose: 650 mg Documented by: Al Hydroxide/Mg Hydroxide (Mylanta Oral Suspension -) 30 ml PO Q6H PRN PRN Reason: DYSPEPSIA Albuterol Sulfate (Ventolin Hfa Inhaler -) 2 puff IH Q6H PRN PRN Reason: SHORT OF BREATH/WHEEZING Last Admin: 11/27/19 08:50 Dose: 2 puff Documented by: Atorvastatin Calcium (Lipitor -) 20 mg PO HS [facility] Last Admin: 11/30/19 21:21 Dose: 20 mg Documented by: Bupropion HCl (Wellbutrin Xl -) 150 mg PO DAILY [facility] Last Admin: 12/01/19 09:10 Dose: 150 mg Documented by: Dicyclomine HCl (Bentyl -) 10 mg PO Q6H PRN PRN Reason: MUSCLE SPASMS Last Admin: 12/01/19 09:11 Dose: 10 mg Documented by: Dronabinol (Marinol -) 2.5 mg PO DAILY [facility] Last Admin: 12/01/19 09:10 Dose: 2.5 mg Documented by: Heparin Sodium (Porcine) (Heparin -) 5,000 unit SQ BID [facility] Last Admin: 12/01/19 09:11 Dose: 5,000 unit Documented by: Hydralazine HCl (Apresoline -) 50 mg PO TID [facility] Last Admin: 12/01/19 13:06 Dose: 50 mg Documented by: Ertapenem 0.5 gm/ Sodium (Chloride) 50 mls @ 100 mls/hr IVPB DAILY [facility] Last Admin: 12/01/19 10:46 Dose: 100 mls/hr Documented by: Labetalol HCl (Normodyne -) 200 mg PO TID [facility] Last Admin: 12/01/19 13:06 Dose: 200 mg Documented by: Levothyroxine Sodium (Synthroid -) 25 mcg PO DAILY@0700 [facility] Last Admin: 12/01/19 06:00 Dose: 25 mcg Documented by: Metoclopramide HCl (Reglan -) 10 mg PO TIDAC [facility] Last Admin: 12/01/19 10:46 Dose: 10 mg Documented by: Mirtazapine (Remeron -) 30 mg PO HS [facility] Last Admin: 11/30/19 21:26 Dose: 30 mg Documented by: Multivitamins/Minerals/Vitamin C (Tab-A-Vit -) 1 tab PO DAILY [facility] Last Admin: 12/01/19 09:10 Dose: 1 tab Documented by: Nifedipine (Procardia Xl -) 90 mg PO DAILY [facility] Last Admin: 12/01/19 09:10 Dose: 90 mg Documented by: Pantoprazole Sodium (Protonix -) 20 mg PO DAILY [facility] Last Admin: 12/01/19 09:10 Dose: 20 mg Documented by: Polyethylene Glycol (Miralax (For Daily Use) -) 17 gm PO BID [facility] Last Admin: 12/01/19 09:13 Dose: Not Given Documented by: Polysaccharide Iron Complex (Niferex-150 -) 150 mg PO DAILY [facility] Last Admin: 12/01/19 09:11 Dose: 150 mg Documented by: Senna (Senna -) 2 tab PO [facility] Last Admin: 11/30/19 21:22 Dose: 2 tab Documented by: Torsemide (Demadex -) 40 mg PO DAILY [facility] Last Admin: 12/01/19 09:10 Dose: 40 mg Documented by: Trazodone HCl (Desyrel -) 50 mg PO [facility] Last Admin: 11/30/19 21:21 Dose: 50 mg Documented by: Constitutional: Yes: NAD Eyes: Yes: WNL HENT: Yes: WNL Neck: Yes: WNL Cardiovascular: Yes: Regular Rate and Rhythm, S1, S2 Respiratory: Yes: Scattered rales Gastrointestinal: Yes: Normal Bowel Sounds, Soft Extremities: Yes: WNL Edema: Yes (LUE) Labs: Laboratory Results - last 24 hr 11/30/19 11/30/19 12/01/19 16:45 16:45 05:47 WBC 8.2 8.2 RBC 2.83 L 3.07 L Hgb 7.5 L 8.2 L Hct 23.2 L 25.0 L MCV 82.0 81.4 MCH 26.4 26.8 MCHC 32.2 32.9 RDW 18.1 H 17.8 H Plt Count 389 438 H MPV 6.8 L 7.0 L Absolute Neuts (auto) 6.3 6.7 Neutrophils % 77.1 82.5 Lymphocytes % 6.6 L 5.9 L Monocytes % 10.8 H 7.1 Eosinophils % 4.8 H 3.7 Basophils % 0.7 0.8 Nucleated RBC % 0 0 Sodium 138 Potassium 3.5 Chloride 103 Carbon Dioxide 28 Anion Gap 7 L BUN 36.6 H Creatinine 2.9 H Est GFR (CKD-EPI)AfAm 17.37 Est GFR (CKD-EPI)NonAf 14.99 Random Glucose 97 Calcium 8.4 L Total Bilirubin 0.4 AST 15 ALT 13 Alkaline Phosphatase 103 Total Protein 5.9 L Albumin 2.9 L 12/01/19 05:47 WBC RBC Hgb Hct MCV MCH MCHC RDW Plt Count MPV Absolute Neuts (auto) Neutrophils % Lymphocytes % Monocytes % Eosinophils % Basophils % Nucleated RBC % Sodium 140 Potassium 3.6 Chloride 103 Carbon Dioxide 27 Anion Gap 10 BUN 42.6 H Creatinine 2.8 H Est GFR (CKD-EPI)AfAm 18.12 Est GFR (CKD-EPI)NonAf 15.64 Random Glucose 101 Calcium 8.4 L Total Bilirubin 0.4 AST 19 ALT 14 Alkaline Phosphatase 112 Total Protein 6.7 Albumin 3.2 L Problem List - Problems (1) Acute kidney injury superimposed on chronic kidney disease Code(s): N17.9 - ACUTE KIDNEY FAILURE, UNSPECIFIED; N18.9 - CHRONIC KIDNEY DISEASE, UNSPECIFIED (2) Urinary tract infection Code(s): N39.0 - URINARY TRACT INFECTION, SITE NOT SPECIFIED Qualifiers: Urinary tract infection type: site unspecified (3) Abdominal pain Code(s): R10.9 - UNSPECIFIED ABDOMINAL PAIN Qualifiers: Abdominal location: generalized Qualified Code(s): R10.84 - Generalized abdominal pain (4) Abnormal CXR Code(s): R93.89 - ABNORMAL FINDINGS ON DX IMAGING OF OTH BODY STRUCTURES (5) Acute on chronic diastolic (congestive) heart failure Code(s): I50.33 - ACUTE ON CHRONIC DIASTOLIC (CONGESTIVE) HEART FAILURE (6) Anemia Code(s): D64.9 - ANEMIA, UNSPECIFIED (7) CHF exacerbation Code(s): I50.9 - HEART FAILURE, UNSPECIFIED (8) Dementia Code(s): F03.90 - UNSPECIFIED DEMENTIA WITHOUT BEHAVIORAL DISTURBANCE (9) Diabetes Code(s): E11.9 - TYPE 2 DIABETES MELLITUS WITHOUT COMPLICATIONS (10) HLD (hyperlipidemia) Code(s): E78.5 - HYPERLIPIDEMIA, UNSPECIFIED (11) HTN (hypertension) Code(s): I10 - ESSENTIAL (PRIMARY) HYPERTENSION (12) Pleural effusion Code(s): J90 - PLEURAL EFFUSION, NOT ELSEWHERE CLASSIFIED (13) Pulmonary HTN Code(s): I27.20 - PULMONARY HYPERTENSION, UNSPECIFIED (14) SOB (shortness of breath) Code(s): R06.02 - SHORTNESS OF BREATH Assessment/Plan IMP ACUTE HYPOXEMIC RESPIRATORY FAILURE IMPROVED ACUTE ON CHRONIC DIASTOLIC HF IMPROVING ABDOMINAL PAIN IMPROVING HTN ACUTE ON CHRONIC KIDNEY DISEASE PARKINSONS DEMENTIA DONNA NODULE ANEMIA PULMONARY HTN PERICARDIAL EFFUSION UTI PLAN SUPPLEMENTAL O2 NEEDED INHALED BRONCHODILATORS DEMADEX ABX MONITOR LYTES,RENAL FUNCTION TREND H+H NORMAL TRANSFUSION THRESHOLD MONITOR PERICARDIAL EFFUSION DR EMMANUEL
[2019-12-01] MEDS: traZODone HCL 50 MG TABLET (FP) PO SCH (21:42)
[2019-12-01] MEDS: ATORVASTATIN CA 20 MG TABLET (FP) PO SCH (21:42)
[2019-12-01] MEDS: SENNOSIDES 8.6MG TABLET (FP) PO SCH (21:43)
[2019-12-01] MEDS: MIRTAZAPINE 30 MG TABLET PO SCH (21:43)
[2019-12-02] MEDS: LABETALOL HCL 200 MG TABLET (FP) PO SCH ×2 (06:28→13:45)
[2019-12-02] MEDS: METOCLOPRAMIDE HCL 10 MG TABLET (FP) PO SCH ×2 (06:28→10:44)
[2019-12-02] MEDS: hydrALAZINE HCL 50 MG TABLET (FP) PO SCH (06:28)
[2019-12-02] MEDS: LEVOTHYROXINE NA 25 MCG TABLET (FP) PO SCH (06:28)
[2019-12-02 08:15] LABS: BASO % 0.4 % (0-2.0); EOS % 1.4 % (0-4.5); HEMATOCRIT 25.6 % (32.4-45.2); HEMOGLOBIN 8.1 GM/dL (10.7-15.3); LYMPH % 2.3 % (8-40); MCHC 31.7 g/dl (32.0-36.0); MEAN PLT VOLUME 7.3 fl (7.5-11.1); MONO % 4.6 % (3.8-10.2); NEUT % 91.3 % (42.8-82.8); PLATELET COUNT 385 K/MM3 (134-434); RBC 3.12 M/mm3 (3.60-5.2); RDW 17.4 % (11.6-15.6); WHITE BLOOD COUNT 14.1 K/mm3 (4.0-10.0)
[2019-12-02 08:21] LABS: ALBUMIN 2.7 g/dl (3.4-5.0); BILIRUBIN,TOTAL 0.6 mg/dL (0.2-1); BLOOD UREA NITROGEN 42.9 mg/dL (7-18); CALCIUM 7.8 mg/dL (8.5-10.1); CREATININE 2.3 mg/dL (0.55-1.3); TOT PROT 5.7 g/dl (6.4-8.2)
[2019-12-02] MEDS ORDERED: hydrALAZINE HCL 50 MG TABLET (FP) PO SCH ×2 (08:49→14:00)
--- NOTE | 2019-12-02 08:54 | PN ---
Progress Note, Physician Chief Complaint: Abdominal pain Pericardial effusion CKD UTI Anemia HTN History of Present Illness: The patient is a 79-year-old female with dementia, diabetes, hypertension, hyperlipidemia, Parkinson disease, diverticulosis, lower GI bleed, diastolic heart failure, frequent admissions for abdominal pain and fecal impaction and pleural effusions, normal left ventricular systolic function on echo 05/03/2018 without significant valvular abnormalities, bradycardia on labetalol, now presenting with abdominal pain and shortness of breath. Fluid overloaded. NAD, in bed On IV ertapenem day 09/25 - Current Medication List Current Medications: Active Medications Acetaminophen (Tylenol -) 650 mg PO Q4H PRN PRN Reason: PAIN 1-6 Last Admin: 11/30/19 21:22 Dose: 650 mg Documented by: Al Hydroxide/Mg Hydroxide (Mylanta Oral Suspension -) 30 ml PO Q6H PRN PRN Reason: DYSPEPSIA Albuterol Sulfate (Ventolin Hfa Inhaler -) 2 puff IH Q6H PRN PRN Reason: SHORT OF BREATH/WHEEZING Last Admin: 11/27/19 08:50 Dose: 2 puff Documented by: Atorvastatin Calcium (Lipitor -) 20 mg PO HS [facility] Last Admin: 12/01/19 21:42 Dose: 20 mg Documented by: Bupropion HCl (Wellbutrin Xl -) 150 mg PO DAILY [facility] Last Admin: 12/01/19 09:10 Dose: 150 mg Documented by: Dicyclomine HCl (Bentyl -) 10 mg PO Q6H PRN PRN Reason: MUSCLE SPASMS Last Admin: 12/01/19 09:11 Dose: 10 mg Documented by: Dronabinol (Marinol -) 2.5 mg PO DAILY [facility] Last Admin: 12/01/19 09:10 Dose: 2.5 mg Documented by: Heparin Sodium (Porcine) (Heparin -) 5,000 unit SQ BID [facility] Last Admin: 12/01/19 21:42 Dose: 5,000 unit Documented by: Ertapenem 0.5 gm/ Sodium (Chloride) 50 mls @ 100 mls/hr IVPB DAILY [facility] Last Admin: 12/01/19 10:46 Dose: 100 mls/hr Documented by: Labetalol HCl (Normodyne -) 200 mg PO TID [facility] Last Admin: 12/02/19 06:28 Dose: 200 mg Documented by: Levothyroxine Sodium (Synthroid -) 25 mcg PO DAILY@0700 [facility] Last Admin: 12/02/19 06:28 Dose: 25 mcg Documented by: Metoclopramide HCl (Reglan -) 10 mg PO TIDAC [facility] Last Admin: 12/02/19 06:28 Dose: 10 mg Documented by: Mirtazapine (Remeron -) 30 mg PO [facility] Last Admin: 12/01/19 21:43 Dose: 30 mg Documented by: Multivitamins/Minerals/Vitamin C (Tab-A-Vit -) 1 tab PO DAILY [facility] Last Admin: 12/01/19 09:10 Dose: 1 tab Documented by: Pantoprazole Sodium (Protonix -) 20 mg PO DAILY [facility] Last Admin: 12/01/19 09:10 Dose: 20 mg Documented by: Polyethylene Glycol (Miralax (For Daily Use) -) 17 gm PO BID [facility] Last Admin: 12/01/19 21:42 Dose: 17 gm Documented by: Polysaccharide Iron Complex (Niferex-150 -) 150 mg PO DAILY [facility] Last Admin: 12/01/19 09:11 Dose: 150 mg Documented by: Senna (Senna -) 2 tab PO [facility] Last Admin: 12/01/19 21:43 Dose: 2 tab Documented by: Torsemide (Demadex -) 40 mg PO DAILY [facility] Last Admin: 12/01/19 09:10 Dose: 40 mg Documented by: Trazodone HCl (Desyrel -) 50 mg PO [facility] Last Admin: 12/01/19 21:42 Dose: 50 mg Documented by: - Objective Vital Signs: Vital Signs Temperature 98.3 F 12/02/19 06:00 Pulse Rate 75 12/02/19 06:00 Respiratory Rate 20 12/02/19 06:00 Blood Pressure 151/68 12/02/19 06:00 O2 Sat by Pulse Oximetry (%) 95 12/02/19 06:00 Constitutional: Yes: Well Nourished, No Distress, Calm Cardiovascular: Yes: Regular Rate and Rhythm Respiratory: Yes: Regular, CTA Bilaterally Gastrointestinal: Yes: Normal Bowel Sounds, Soft Genitourinary: Yes: Incontinence Musculoskeletal: Yes: Muscle Weakness Extremities: Yes: WNL Edema: No Peripheral Pulses WNL: Yes Neurological: Yes: Alert, Oriented, Other (with periods of confusion) Psychiatric: Yes: Alert, Oriented Labs: CBC, BMP 12/02/19 06:36 12/02/19 06:36 INR, PTT INR 1.08 (0.83-1.09) 11/23/19 16:45 Problem List - Problems (1) Acute kidney injury superimposed on CKD Assessment/Plan: -Nephrology on board -Cr at baseline -Olmesartan (home med) was discontinued due to rise in Cr Problems reviewed: Yes Code(s): N17.9 - ACUTE KIDNEY FAILURE, UNSPECIFIED; N18.9 - CHRONIC KIDNEY DISEASE, UNSPECIFIED (2) Pericardial effusion Assessment/Plan: -Echo + moderate pericardial effusion -Seen by Cardiology -No pericardiocentesis recommended -Diuresis with torsemide 40 mg po daily -Repeat Echo in 1 month outpatient Problems reviewed: Yes Code(s): I31.3 - PERICARDIAL EFFUSION (NONINFLAMMATORY) (3) Sepsis Assessment/Plan: -Resolved -afebrile -ID consult appreciated -IV Ertapenem day 09/25 Problems reviewed: Yes Code(s): A41.9 - SEPSIS, UNSPECIFIED ORGANISM (4) Urinary tract infection Assessment/Plan: -UC: Microbiology 11/23/19 16:45 Blood - Peripheral Venous Blood Culture - Preliminary NO GROWTH OBTAINED AFTER 96 HOURS, INCUBATION TO CONTINUE FOR 1 DAYS. 11/23/19 16:55 Blood - Peripheral Venous Blood Culture - Preliminary NO GROWTH OBTAINED AFTER 96 HOURS, INCUBATION TO CONTINUE FOR 1 DAYS. 11/23/19 17:25 Urine - Urine - Catheterized Urine Culture - Final Escherichia Coli [employer] 11/24/19 14:10 Urine - Urine Clean Catch Legionella Antigen - Final 11/24/19 14:10 Urine - Urine Clean Catch Streptococcus pneumoniae Antigen (M - Final -afebrile -ID consult appreciated -IV Ertapenem day 09/25 Problems reviewed: Yes Code(s): N39.0 - URINARY TRACT INFECTION, SITE NOT SPECIFIED Qualifiers: Urinary tract infection type: site unspecified (5) Abdominal pain Assessment/Plan: -Improved -Seen by GI -Restarted Reglan 10 mg AC -PPI -Dicyclomine Problems reviewed: Yes Code(s): R10.9 - UNSPECIFIED ABDOMINAL PAIN Qualifiers: Abdominal location: generalized Qualified Code(s): R10.84 - Generalized abdominal pain (6) Acute on chronic diastolic (congestive) heart failure Assessment/Plan: -Cardiology consult appreciated -Telemetry -Echocardiogram with moderate to large pericardial effusion. Normal EF. No tamponade. -Continue torsemide 40 mg po daily in AM -Continue Labetalol to 200 mg po tid -was held upon admission due to asymptomatic bradycardia w/ HR of mid 50's Problems reviewed: Yes Code(s): I50.33 - ACUTE ON CHRONIC DIASTOLIC (CONGESTIVE) HEART FAILURE (7) Anemia Assessment/Plan: -chronic -Multifactorial -H/H improved -OLINDA -Injectafer once this admission -Iron polysaccharride 150 mg po daily Problems reviewed: Yes Code(s): D64.9 - ANEMIA, UNSPECIFIED (8) Diabetes Assessment/Plan: -A1c at <3.5 -D/C BGM AC HS -D/C ISS -Change diet to low sodium diet Problems reviewed: Yes Code(s): E11.9 - TYPE 2 DIABETES MELLITUS WITHOUT COMPLICATIONS (9) Constipation Assessment/Plan: -Miralax BID -Senna 2 tabs po HS Problems reviewed: Yes Code(s): K59.00 - CONSTIPATION, UNSPECIFIED (10) Failure to thrive Assessment/Plan: -Multivitamin -Mirtazapine -Started Marinol 2.5 mg po daily (was on it at home) -Daughter will bring home cooked food. Problems reviewed: Yes Code(s): [id number] - Qualifiers: Failure to thrive age range: in adult Qualified Code(s): R62.7 - Adult failure to thrive (11) Left arm swelling Assessment/Plan: -U/S venous doppler LUE negative for DVT -Restart Heparin SQ BID for dvt ppx, was being held due to anemia -Elevate arm Problems reviewed: Yes Code(s): M79.89 - OTHER SPECIFIED SOFT TISSUE DISORDERS (12) HTN (hypertension) Assessment/Plan: -Continue torsemide 40 mg po daily in AM -Increase Labetalol to 200 mg po tid -was held upon admission due to asymptomatic bradycardia w/ HR of mid 50's -Continue hydralazine 50 mg po TID -Olmasartan discontinued due to rising Cr -Increase Nifedipine XL to 120 mg po daily Problems reviewed: Yes Code(s): I10 - ESSENTIAL (PRIMARY) HYPERTENSION Assessment/Plan See problem list D/C home with [facility] services, has 12/10 [employer] services
[2019-12-02] MEDS ORDERED: NIFEdipine E.R 60 MG TABLET PO SCH (10:00)
[2019-12-02] MEDS ORDERED: PT OWN MED DRAWER 7, Y5N ONE (10:19)
[2019-12-02 10:27] LABS: ANISOCYTOSIS 1+; MACROCYTOSIS 0; PLATELET ESTIMATE NORMAL
[2019-12-02] MEDS: DRONABINOL 2.5 MG CAPSULE PO SCH (10:38)
[2019-12-02] MEDS: HEPARIN NA (PORCINE) 5,000 UNITS/ML 1ML VIAL SQ SCH (10:38)
[2019-12-02] MEDS: ERTAPENEM SODIUM 0.5 GM in SODIUM CHLORIDE 50 ML IVPB SCH (10:38)
[2019-12-02] MEDS: TORSEMIDE 20 MG TABLET (FP) PO SCH (10:38)
[2019-12-02] MEDS: IRON POLYSACCHARIDES 150 MG CAPSULE PO SCH (10:44)
[2019-12-02] MEDS: POLYETHYLENE GLYCOL 3350 119 GM BTL PO SCH (10:44)
[2019-12-02] MEDS: MULTIVITAMINS (DAILY MVI) TABLET (FP) PO SCH (10:44)
[2019-12-02] MEDS: PANTOPRAZOLE 20 MG TABLET PO SCH (10:44)
--- NOTE | 2019-12-02 11:50 | DS ---
Physical Examination Vital Signs: Vital Signs Temperature 98.5 F 12/02/19 10:00 Pulse Rate 75 12/02/19 10:00 Respiratory Rate 20 12/02/19 10:00 Blood Pressure 180/78 H 12/02/19 10:00 O2 Sat by Pulse Oximetry (%) 99 12/02/19 10:00 Findings/Remarks: This is a 79 y/o female with a significant PMHx of Dementia,Parkinsin's Disease, HTN, CHF, DM, CKD, Diveticulosis. Who presents to the ED with her daughter for abdominal pain x 7 days. Patient was seen by her PMD for dysuria, placed on Cipro for UTI and Iron pills for Anemia. Per the daughter the patient would not take the medications and has a poor appetite. She reorts the patient has O2 at home but does not use it. Per the daughter she denies patient having fever, chills, cough, SOB, CP, palpitations, N/V. No recent sick contacts or travel. (1) Acute kidney injury superimposed on CKD Assessment/Plan: -Nephrology on board -Cr at baseline -Olmesartan (home med) was discontinued due to rise in Cr Problems reviewed: Yes Code(s): N17.9 - ACUTE KIDNEY FAILURE, UNSPECIFIED; N18.9 - CHRONIC KIDNEY DISEASE, UNSPECIFIED (2) Pericardial effusion Assessment/Plan: -Echo + moderate pericardial effusion -Seen by Cardiology -No pericardiocentesis recommended -Diuresis with torsemide 40 mg po daily -Repeat Echo in 1 month outpatient Problems reviewed: Yes Code(s): I31.3 - PERICARDIAL EFFUSION (NONINFLAMMATORY) (3) Sepsis Assessment/Plan: -Resolved -afebrile -ID consult appreciated -IV Ertapenem day 09/25 Problems reviewed: Yes Code(s): A41.9 - SEPSIS, UNSPECIFIED ORGANISM (4) Urinary tract infection Assessment/Plan: -UC: Microbiology 11/23/19 16:45 Blood - Peripheral Venous Blood Culture - Preliminary NO GROWTH OBTAINED AFTER 96 HOURS, INCUBATION TO CONTINUE FOR 1 DAYS. 11/23/19 16:55 Blood - Peripheral Venous Blood Culture - Preliminary NO GROWTH OBTAINED AFTER 96 HOURS, INCUBATION TO CONTINUE FOR 1 DAYS. 11/23/19 17:25 Urine - Urine - Catheterized Urine Culture - Final Escherichia Coli Esbl [employer] 11/24/19 14:10 Urine - Urine Clean Catch Legionella Antigen - Final 11/24/19 14:10 Urine - Urine Clean Catch Streptococcus pneumoniae Antigen (M - Final -afebrile -ID consult appreciated -IV Ertapenem day 09/25 Problems reviewed: Yes Code(s): N39.0 - URINARY TRACT INFECTION, SITE NOT SPECIFIED Qualifiers: Urinary tract infection type: site unspecified (5) Abdominal pain Assessment/Plan: -Improved -Seen by GI -Restarted Reglan 10 mg AC -PPI -Dicyclomine Problems reviewed: Yes Code(s): R10.9 - UNSPECIFIED ABDOMINAL PAIN Qualifiers: Abdominal location: generalized Qualified Code(s): R10.84 - Generalized abdominal pain (6) Acute on chronic diastolic (congestive) heart failure Assessment/Plan: -Cardiology consult appreciated -Telemetry -Echocardiogram with moderate to large pericardial effusion. Normal EF. No tamponade. -Continue torsemide 40 mg po daily in AM -Continue Labetalol to 200 mg po tid -was held upon admission due to asymptomatic bradycardia w/ HR of mid 50's Problems reviewed: Yes Code(s): I50.33 - ACUTE ON CHRONIC DIASTOLIC (CONGESTIVE) HEART FAILURE (7) Anemia Assessment/Plan: -chronic -Multifactorial -H/H improved -OLINDA -Injectafer once this admission -Iron polysaccharride 150 mg po daily Problems reviewed: Yes Code(s): D64.9 - ANEMIA, UNSPECIFIED (8) Diabetes Assessment/Plan: -A1c at <3.5 -D/C BGM AC HS -D/C ISS -Change diet to low sodium diet Problems reviewed: Yes Code(s): E11.9 - TYPE 2 DIABETES MELLITUS WITHOUT COMPLICATIONS (9) Constipation Assessment/Plan: -Miralax BID -Senna 2 tabs po HS Problems reviewed: Yes Code(s): K59.00 - CONSTIPATION, UNSPECIFIED (10) Failure to thrive Assessment/Plan: -Multivitamin -Mirtazapine -Started Marinol 2.5 mg po daily (was on it at home) -Daughter will bring home cooked food. Problems reviewed: Yes Code(s): NRB9256 - Qualifiers: Failure to thrive age range: in adult Qualified Code(s): R62.7 - Adult failure to thrive (11) Left arm swelling Assessment/Plan: -U/S venous doppler LUE negative for DVT -Restarted Heparin SQ BID for dvt ppx, was being held due to anemia -Elevate arm Problems reviewed: Yes Code(s): M79.89 - OTHER SPECIFIED SOFT TISSUE DISORDERS (12) HTN (hypertension) Assessment/Plan: -Continue torsemide 40 mg po daily in AM -Increase Labetalol to 200 mg po tid -was held upon admission due to asymptomatic bradycardia w/ HR of mid 50's -Continue hydralazine 50 mg po TID -Olmasartan discontinued due to rising Cr -Increase Nifedipine XL to 120 mg po daily Problems reviewed: Yes Code(s): I10 - ESSENTIAL (PRIMARY) HYPERTENSION Assessment/Plan See problem list D/C home with VNS services, has 12/10 [employer] services Constitutional: Yes: Well Nourished, No Distress, Calm Cardiovascular: Yes: Regular Rate and Rhythm Respiratory: Yes: Regular, CTA Bilaterally Gastrointestinal: Yes: Normal Bowel Sounds, Soft Renal/: Yes: Incontinence Musculoskeletal: Yes: Muscle Weakness Extremities: Yes: Other (Generalized atrophy) Edema: No Peripheral Pulses WNL: Yes Neurological: Yes: Alert, Pre-Existing Deficit Psychiatric: Yes: Alert Labs: CBC, BMP 12/02/19 06:36 12/02/19 06:36 Discharge Summary Problems reviewed: Yes Reason For Visit: ACUTE KIDNEY INJURY, URINARY TRACT INFECTION Current Active Problems JASPER (acute kidney injury) (Acute) Acute kidney injury superimposed on CKD (Acute) Acute kidney injury superimposed on chronic kidney disease (Acute) Left arm swelling (Acute) Pericardial effusion (Acute) Sepsis (Acute) Suspected COVID-19 virus infection (Acute) Urinary tract infection (Acute) Condition: Stable - Instructions Referrals: Ro Espana MD [Primary Care Provider] - Tyler Kincaid MD [Staff Physician] - Lenka uY MD [Staff Physician] - Disposition: VNS/HOME HEALTH CARE - Home Medications Comprehensive Discharge Medication List: Ambulatory Orders Levothyroxine [Synthroid -] 25 mcg PO DAILY 04/24/19 Aspirin 81 mg PO DAILY 04/25/19 Atorvastatin Ca [Lipitor] 20 mg PO HS 04/25/19 Bupropion HCl [Wellbutrin -] 150 mg PO DAILY 04/25/19 Furosemide 80 mg PO TID 04/25/19 Hydralazine HCl 50 mg PO TID 04/25/19 Labetalol HCl [Normodyne -] 200 mg PO TID 04/25/19 Lipase/Protease/Amylase [Elaine Dr 36,000 Units Capsule] 1 each PO TID 04/25/19 Mirtazapine 30 mg PO HS 04/25/19 Nifedipine [Procardia Xl] 60 mg PO BID 04/25/19 Olmesartan Medoxomil [Benicar -] 40 mg PO DAILY 04/25/19 Potassium Chloride 20 meq PO DAILY 04/25/19 Diclofenac Sodium 75 mg PO DAILY 11/23/19 Dicyclomine HCl 10 mg PO DAILY 11/23/19 Memantine HCl/Donepezil HCl [Namzaric 14 mg-10 mg Capsule] 1 cap PO DAILY 11/23/19 traZODone HCL [Trazodone HCl] 50 mg PO HS 11/23/19 Prescription Drug Monitoring Program (I-STOP) results: I-STOP reviewed and no issues identified
--- NOTE | 2019-12-02 12:15 | PN ---
Progress Note, Physician History of Present Illness: Pt seen and examined at bedside. She is awake and alert. She denies shortness of breath. - Current Medication List Current Medications: Active Medications Acetaminophen (Tylenol -) 650 mg PO Q4H PRN PRN Reason: PAIN 1-6 Last Admin: 11/30/19 21:22 Dose: 650 mg Documented by: Al Hydroxide/Mg Hydroxide (Mylanta Oral Suspension -) 30 ml PO Q6H PRN PRN Reason: DYSPEPSIA Albuterol Sulfate (Ventolin Hfa Inhaler -) 2 puff IH Q6H PRN PRN Reason: SHORT OF BREATH/WHEEZING Last Admin: 11/27/19 08:50 Dose: 2 puff Documented by: Atorvastatin Calcium (Lipitor -) 20 mg PO HS [facility] Last Admin: 12/01/19 21:42 Dose: 20 mg Documented by: Bupropion HCl (Wellbutrin Xl -) 150 mg PO DAILY [facility] Last Admin: 12/02/19 10:44 Dose: 150 mg Documented by: Dicyclomine HCl (Bentyl -) 10 mg PO Q6H PRN PRN Reason: MUSCLE SPASMS Last Admin: 12/01/19 09:11 Dose: 10 mg Documented by: Dronabinol (Marinol -) 2.5 mg PO DAILY [facility] Last Admin: 12/02/19 10:38 Dose: 2.5 mg Documented by: Heparin Sodium (Porcine) (Heparin -) 5,000 unit SQ BID [facility] Last Admin: 12/02/19 10:38 Dose: 5,000 unit Documented by: Hydralazine HCl (Apresoline -) 50 mg PO TID [facility] Ertapenem 0.5 gm/ Sodium (Chloride) 50 mls @ 100 mls/hr IVPB DAILY [facility] Last Admin: 12/02/19 10:38 Dose: 100 mls/hr Documented by: Labetalol HCl (Normodyne -) 200 mg PO TID [facility] Last Admin: 12/02/19 06:28 Dose: 200 mg Documented by: Levothyroxine Sodium (Synthroid -) 25 mcg PO DAILY@0700 [facility] Last Admin: 12/02/19 06:28 Dose: 25 mcg Documented by: Metoclopramide HCl (Reglan -) 10 mg PO TIDAC [facility] Last Admin: 12/02/19 10:44 Dose: 10 mg Documented by: Mirtazapine (Remeron -) 30 mg PO [facility] Last Admin: 12/01/19 21:43 Dose: 30 mg Documented by: Multivitamins/Minerals/Vitamin C (Tab-A-Vit -) 1 tab PO DAILY [facility] Last Admin: 12/02/19 10:44 Dose: 1 tab Documented by: Nifedipine (Procardia Xl -) 120 mg PO DAILY [facility] Last Admin: 12/02/19 10:44 Dose: 120 mg Documented by: Pantoprazole Sodium (Protonix -) 20 mg PO DAILY [facility] Last Admin: 12/02/19 10:44 Dose: 20 mg Documented by: Polyethylene Glycol (Miralax (For Daily Use) -) 17 gm PO BID [facility] Last Admin: 12/02/19 10:44 Dose: 17 gm Documented by: Polysaccharide Iron Complex (Niferex-150 -) 150 mg PO DAILY [facility] Last Admin: 12/02/19 10:44 Dose: 150 mg Documented by: Senna (Senna -) 2 tab PO [facility] Last Admin: 12/01/19 21:43 Dose: 2 tab Documented by: Torsemide (Demadex -) 40 mg PO DAILY [facility] Last Admin: 12/02/19 10:38 Dose: 40 mg Documented by: Trazodone HCl (Desyrel -) 50 mg PO [facility] Last Admin: 12/01/19 21:42 Dose: 50 mg Documented by: - Objective Vital Signs: Vital Signs Temperature 98.5 F 12/02/19 10:00 Pulse Rate 75 12/02/19 10:00 Respiratory Rate 20 12/02/19 10:00 Blood Pressure 180/78 H 12/02/19 10:00 O2 Sat by Pulse Oximetry (%) 99 12/02/19 10:00 Constitutional: Yes: Calm Eyes: Yes: Conjunctiva Clear HENT: Yes: Atraumatic Neck: Yes: Supple Cardiovascular: Yes: S1, S2 Respiratory: Yes: CTA Bilaterally Gastrointestinal: Yes: Soft Genitourinary: Yes: WNL Musculoskeletal: Yes: WNL Edema: No Neurological: Yes: Oriented Psychiatric: Yes: Oriented Labs: CBC, BMP 12/02/19 06:36 12/02/19 06:36 INR, PTT INR 1.08 (0.83-1.09) 11/23/19 16:45 Problem List - Problems (1) JASPER (acute kidney injury) Code(s): N17.9 - ACUTE KIDNEY FAILURE, UNSPECIFIED (2) Acute kidney injury superimposed on chronic kidney disease Code(s): N17.9 - ACUTE KIDNEY FAILURE, UNSPECIFIED; N18.9 - CHRONIC KIDNEY DISEASE, UNSPECIFIED (3) CHF (congestive heart failure) Code(s): I50.9 - HEART FAILURE, UNSPECIFIED Qualifiers: (4) CHF exacerbation Code(s): I50.9 - HEART FAILURE, UNSPECIFIED (5) CKD (chronic kidney disease) Code(s): N18.9 - CHRONIC KIDNEY DISEASE, UNSPECIFIED (6) Dementia Code(s): F03.90 - UNSPECIFIED DEMENTIA WITHOUT BEHAVIORAL DISTURBANCE (7) Diverticulosis Code(s): K57.90 - DVRTCLOS OF INTEST, PART UNSP, W/O PERF OR ABSCESS W/O BLEED Assessment/Plan Current Medications Generic Name Dose Route Start Last Admin Trade Name Freq PRN Reason Stop Dose Admin Acetaminophen 650 mg 11/24/19 15:25 11/30/19 21:22 Tylenol - PO 650 mg Q4H PRN Administration PAIN 1-6 Al Hydroxide/Mg Hydroxide 30 ml 11/30/19 12:17 Mylanta Oral Suspension - PO Q6H PRN DYSPEPSIA Albuterol Sulfate 2 puff 11/23/19 20:02 11/27/19 08:50 Ventolin Hfa Inhaler - IH 2 puff Q6H PRN Administration SHORT OF BREATH/WHEEZING Atorvastatin Calcium 20 mg 11/24/19 22:00 12/01/19 21:42 Lipitor - PO 20 mg HS JOYCE Administration Bupropion HCl 150 mg 11/24/19 10:00 12/02/19 10:44 Wellbutrin Xl - PO 150 mg DAILY JOYCE Administration Dicyclomine HCl 10 mg 11/30/19 12:16 12/01/19 09:11 Bentyl - PO 10 mg Q6H PRN Administration MUSCLE SPASMS Dronabinol 2.5 mg 11/30/19 11:15 12/02/19 10:38 Marinol - PO 2.5 mg DAILY JOYCE Administration Heparin Sodium (Porcine) 5,000 unit 11/30/19 11:00 12/02/19 10:38 Heparin - SQ 5,000 unit BID JOYCE Administration Hydralazine HCl 50 mg 12/02/19 14:00 Apresoline - PO TID JOYCE Ertapenem 0.5 gm/ Sodium 50 mls @ 100 mls/hr 11/26/19 18:45 12/02/19 10:38 Chloride IVPB 100 mls/hr DAILY JOYCE Administration Labetalol HCl 200 mg 12/01/19 10:13 12/02/19 06:28 Normodyne - PO 200 mg TID JOYCE Administration Levothyroxine Sodium 25 mcg 11/24/19 07:00 12/02/19 06:28 Synthroid - PO 25 mcg DAILY@0700 JOYCE Administration Metoclopramide HCl 10 mg 11/28/19 16:30 12/02/19 10:44 Reglan - PO 10 mg TIDAC JOYCE Administration Mirtazapine 30 mg 11/24/19 22:00 12/01/19 21:43 Remeron - PO 30 mg HS JOYCE Administration Multivitamins/Minerals/Vitamin C 1 tab 11/30/19 11:15 12/02/19 10:44 Tab-A-Vit - PO 1 tab DAILY JOYCE Administration Nifedipine 120 mg 12/02/19 10:00 12/02/19 10:44 Procardia Xl - PO 120 mg DAILY JOYCE Administration Pantoprazole Sodium 20 mg 11/25/19 10:00 12/02/19 10:44 Protonix - PO 20 mg DAILY JOYCE Administration Polyethylene Glycol 17 gm 11/29/19 22:00 12/02/19 10:44 Miralax (For Daily Use) - PO 17 gm BID JOYCE Administration Polysaccharide Iron Complex 150 mg 11/28/19 15:00 12/02/19 10:44 Niferex-150 - PO 150 mg DAILY JOYCE Administration Senna 2 tab 11/28/19 22:00 12/01/19 21:43 Senna - PO 2 tab HS JOYCE Administration Torsemide 40 mg 11/29/19 10:00 12/02/19 10:38 Demadex - PO 40 mg DAILY JOYCE Administration Trazodone HCl 50 mg 11/24/19 22:00 12/01/19 21:42 Desyrel - PO 50 mg HS JOYCE Administration Impression 1. JASPER 2. CKD 3. HLD 4. diverticulosis 5. HTN 6. DM 7. proteinuria 8. hypoalbuminemia 9. UTI 10. pleural effusion 11. chf 12. pericardial effusion without tamponade 13. fluid overload Impression - renal function improving - cont torsemide - can restart low dose arb and monitor renal function - pt was on olmesartan 40 mg at home, can substitude losartan while here - cont to monitor bp - pt will need outpt follow up
[2019-12-02] MEDS ORDERED: LOSARTAN POTASSIUM 25 MG TABLET PO SCH (12:30)
[2019-12-02 14:27] VITALS: BP 145/57; PULSE 67; TEMP 97.7
--- NOTE | 2019-12-02 14:47 | PN ---
Progress Note (short form) - Note Progress Note: Resting in NAD. Breathing improving. No acute events overnight. Intake & Output 11/29/19 11/30/19 12/01/19 12/02/19 23:59 23:59 23:59 23:59 Intake Total 580 400 310 120 Balance 580 400 310 120 Weight 122 lb Last Vital Signs Temp Pulse Resp BP Pulse Ox 97.7 F 67 20 145/57 L 99 12/02/19 14:00 12/02/19 14:00 12/02/19 14:00 12/02/19 14:00 12/02/19 10:00 Active Medications Acetaminophen (Tylenol -) 650 mg PO Q4H PRN PRN Reason: PAIN 1-6 Last Admin: 11/30/19 21:22 Dose: 650 mg Documented by: Al Hydroxide/Mg Hydroxide (Mylanta Oral Suspension -) 30 ml PO Q6H PRN PRN Reason: DYSPEPSIA Albuterol Sulfate (Ventolin Hfa Inhaler -) 2 puff IH Q6H PRN PRN Reason: SHORT OF BREATH/WHEEZING Last Admin: 11/27/19 08:50 Dose: 2 puff Documented by: Atorvastatin Calcium (Lipitor -) 20 mg PO HS [facility] Last Admin: 12/01/19 21:42 Dose: 20 mg Documented by: Bupropion HCl (Wellbutrin Xl -) 150 mg PO DAILY [facility] Last Admin: 12/02/19 10:44 Dose: 150 mg Documented by: Dicyclomine HCl (Bentyl -) 10 mg PO Q6H PRN PRN Reason: MUSCLE SPASMS Last Admin: 12/01/19 09:11 Dose: 10 mg Documented by: Dronabinol (Marinol -) 2.5 mg PO DAILY [facility] Last Admin: 12/02/19 10:38 Dose: 2.5 mg Documented by: Heparin Sodium (Porcine) (Heparin -) 5,000 unit SQ BID [facility] Last Admin: 12/02/19 10:38 Dose: 5,000 unit Documented by: Hydralazine HCl (Apresoline -) 50 mg PO TID [facility] Last Admin: 12/02/19 13:45 Dose: 50 mg Documented by: Ertapenem 0.5 gm/ Sodium (Chloride) 50 mls @ 100 mls/hr IVPB DAILY [facility] Last Admin: 09/12/20 10:38 Dose: 100 mls/hr Documented by: Labetalol HCl (Normodyne -) 200 mg PO TID [facility] Last Admin: 12/02/19 13:45 Dose: 200 mg Documented by: Levothyroxine Sodium (Synthroid -) 25 mcg PO DAILY@0700 [facility] Last Admin: 12/02/19 06:28 Dose: 25 mcg Documented by: Losartan Potassium (Cozaar -) 25 mg PO DAILY [facility] Last Admin: 12/02/19 13:45 Dose: 25 mg Documented by: Metoclopramide HCl (Reglan -) 10 mg PO TIDAC [facility] Last Admin: 12/02/19 10:44 Dose: 10 mg Documented by: Mirtazapine (Remeron -) 30 mg PO [facility] Last Admin: 12/01/19 21:43 Dose: 30 mg Documented by: Multivitamins/Minerals/Vitamin C (Tab-A-Vit -) 1 tab PO DAILY [facility] Last Admin: 12/02/19 10:44 Dose: 1 tab Documented by: Nifedipine (Procardia Xl -) 120 mg PO DAILY [facility] Last Admin: 12/02/19 10:44 Dose: 120 mg Documented by: Pantoprazole Sodium (Protonix -) 20 mg PO DAILY [facility] Last Admin: 12/02/19 10:44 Dose: 20 mg Documented by: Polyethylene Glycol (Miralax (For Daily Use) -) 17 gm PO BID [facility] Last Admin: 12/02/19 10:44 Dose: 17 gm Documented by: Polysaccharide Iron Complex (Niferex-150 -) 150 mg PO DAILY [facility] Last Admin: 12/02/19 10:44 Dose: 150 mg Documented by: Senna (Senna -) 2 tab PO [facility] Last Admin: 12/01/19 21:43 Dose: 2 tab Documented by: Torsemide (Demadex -) 40 mg PO DAILY [facility] Last Admin: 12/02/19 10:38 Dose: 40 mg Documented by: Trazodone HCl (Desyrel -) 50 mg PO [facility] Last Admin: 12/01/19 21:42 Dose: 50 mg Documented by: Constitutional: Yes: NAD Eyes: Yes: WNL HENT: Yes: WNL Neck: Yes: WNL Cardiovascular: Yes: Regular Rate and Rhythm, S1, S2 Respiratory: Yes: Scattered rales Gastrointestinal: Yes: Normal Bowel Sounds, Soft Extremities: Yes: WNL Edema: Yes (LUE) Labs: Laboratory Results - last 24 hr 12/02/19 12/02/19 06:36 06:36 WBC 14.1 H RBC 3.12 L Hgb 8.1 L Hct 25.6 L MCV 82.0 MCH 26.0 MCHC 31.7 L RDW 17.4 H Plt Count 385 MPV 7.3 L Absolute Neuts (auto) 12.9 H Neutrophils % 91.3 H Neutrophils % (Manual) 94.0 H Band Neutrophils % 0.0 Lymphocytes % 2.3 L D Lymphocytes % (Manual) 2.0 L D Monocytes % 4.6 Monocytes % (Manual) 3 L D Eosinophils % 1.4 Eosinophils % (Manual) 0.0 Basophils % 0.4 Basophils % (Manual) 0.0 Myelocytes % (Man) 1 Promyelocytes % (Man) 0 Blast Cells % (Manual) 0 Nucleated RBC % 0 Metamyelocytes 0 Hypochromia 0 Platelet Estimate Normal Polychromasia 1+ Poikilocytosis 0 Anisocytosis 1+ Microcytosis 1+ Macrocytosis 0 Fragmented RBCs 1+ Sodium 141 Potassium 4.0 Chloride 107 Carbon Dioxide 25 Anion Gap 9 BUN 42.9 H Creatinine 2.3 H Est GFR (CKD-EPI)AfAm 22.99 Est GFR (CKD-EPI)NonAf 19.84 Random Glucose 125 H Calcium 7.8 L Total Bilirubin 0.6 AST 23 ALT 14 Alkaline Phosphatase 100 Total Protein 5.7 L Albumin 2.7 L Problem List - Problems (1) Acute kidney injury superimposed on chronic kidney disease Code(s): N17.9 - ACUTE KIDNEY FAILURE, UNSPECIFIED; N18.9 - CHRONIC KIDNEY DISEASE, UNSPECIFIED (2) Urinary tract infection Code(s): N39.0 - URINARY TRACT INFECTION, SITE NOT SPECIFIED Qualifiers: Urinary tract infection type: site unspecified (3) Abdominal pain Code(s): R10.9 - UNSPECIFIED ABDOMINAL PAIN Qualifiers: Abdominal location: generalized Qualified Code(s): R10.84 - Generalized abdominal pain (4) Abnormal CXR Code(s): R93.89 - ABNORMAL FINDINGS ON DX IMAGING OF OTH BODY STRUCTURES (5) Acute on chronic diastolic (congestive) heart failure Code(s): I50.33 - ACUTE ON CHRONIC DIASTOLIC (CONGESTIVE) HEART FAILURE (6) Anemia Code(s): D64.9 - ANEMIA, UNSPECIFIED (7) CHF exacerbation Code(s): I50.9 - HEART FAILURE, UNSPECIFIED (8) Dementia Code(s): F03.90 - UNSPECIFIED DEMENTIA WITHOUT BEHAVIORAL DISTURBANCE (9) Diabetes Code(s): E11.9 - TYPE 2 DIABETES MELLITUS WITHOUT COMPLICATIONS (10) HLD (hyperlipidemia) Code(s): E78.5 - HYPERLIPIDEMIA, UNSPECIFIED (11) HTN (hypertension) Code(s): I10 - ESSENTIAL (PRIMARY) HYPERTENSION (12) Pleural effusion Code(s): J90 - PLEURAL EFFUSION, NOT ELSEWHERE CLASSIFIED (13) Pulmonary HTN Code(s): I27.20 - PULMONARY HYPERTENSION, UNSPECIFIED (14) SOB (shortness of breath) Code(s): R06.02 - SHORTNESS OF BREATH Assessment/Plan IMP ACUTE HYPOXEMIC RESPIRATORY FAILURE IMPROVED ACUTE ON CHRONIC DIASTOLIC HF IMPROVING ABDOMINAL PAIN IMPROVING HTN ACUTE ON CHRONIC KIDNEY DISEASE PARKINSONS DEMENTIA DONNA NODULE ANEMIA PULMONARY HTN PERICARDIAL EFFUSION UTI PLAN SUPPLEMENTAL O2 NEEDED INHALED BRONCHODILATORS DEMADEX ABX MONITOR LYTES,RENAL FUNCTION DC PLANNING DR EMMANUEL
== END 2019-12-02 14:15 | disposition home health service (06) | DRG 871 ==
LOC: JER 15:46 → JERBED 19:18 → J4S 23:53
PROVIDERS: ADMIT Hospitalist; ATTEND Family Medicine
DX: A41.89 Other specified sepsis (principal); I50.33 Acute on chronic diastolic (congestive) heart failure; J96.01 Acute respiratory failure with hypoxia; I13.0 Hypertensive heart and chronic kidney disease with heart failure and stage 1 through stage 4 chronic kidney disease, or unspecified chronic kidney disease; N39.0 Urinary tract infection, site not specified; I31.3 Pericardial effusion (noninflammatory); N17.9 Acute kidney failure, unspecified; G20 Parkinson's disease; F02.80 Dementia in other diseases classified elsewhere, unspecified severity, without behavioral disturbance, psychotic disturbance, mood disturbance, and anxiety; K57.90 Diverticulosis of intestine, part unspecified, without perforation or abscess without bleeding; E11.42 Type 2 diabetes mellitus with diabetic polyneuropathy; E78.5 Hyperlipidemia, unspecified; F41.9 Anxiety disorder, unspecified; E11.22 Type 2 diabetes mellitus with diabetic chronic kidney disease; N18.9 Chronic kidney disease, unspecified; D63.1 Anemia in chronic kidney disease; I27.20 Pulmonary hypertension, unspecified; K21.9 Gastro-esophageal reflux disease without esophagitis; R74.8 Abnormal levels of other serum enzymes; R10.84 Generalized abdominal pain; R91.1 Solitary pulmonary nodule; E87.70 Fluid overload, unspecified; K56.41 Fecal impaction; M79.89 Other specified soft tissue disorders; R62.7 Adult failure to thrive; Z68.23 Body mass index [BMI] 23.0-23.9, adult
CPT/HCPCS: 36415; 36600; 71045-TC-FY; 71250-TC; 74176-TC; 74190-TC-FY; 80048; 80053; 81003; 82550; 82728; 82803; 82962; 83036; 83540; 83550; 83605; 83615; 83735; 83880; 84100; 84484; 85025; 85027; 85379; 85610; 85730; 86140; 86850; 86900; 86901; 87040; 87086; 87186; 87899; 93005; 93010; 93306-TC; 93970-TC; 93971; 97116-GP; 97161-GP; 99285-25; J0131; J1439; J1644; Q0162; U0003

== ENCOUNTER 2019-12-03 20:28 | Inpatient (IN) | payer OTHER ==
[2019-12-03] MEDS ORDERED: FUROSEMIDE 40 MG/4 ML INJECTABLE VIAL IVPUSH ONE ×2 (21:06→22:44)
[2019-12-03] MEDS ORDERED: FUROSEMIDE 40 MG/4 ML INJECTABLE VIAL ONE (21:16)
--- NOTE | 2019-12-03 21:31 | PDOC ---
Documentation entered by Sharon Marley SCRIBE, acting as scribe for Rayne Lau MD. Rayne Lau MD: This documentation has been prepared by the Taylor hayden Sydney, SCRIBE, under my direction and personally reviewed by me in its entirety. I confirm that the documentation accurately reflects all work, treatment, procedures, and medical decision making performed by me. Attending Attestation - Resident Resident Name: Geovanny Cooper - ED Attending Attestation I have performed the following: I have examined & evaluated the patient, The case was reviewed & discussed with the resident, I agree w/resident's findings & plan, Exceptions are as noted - HPI HPI: 12/03/19 22:13 Patient is a 79 year old female with a significant past medical history of recent admission to [place] for UTI/CHF (discharged yesterday) who presents to the ED with shortness of breath. HPI is limited secondary to the patient's baseline. As per patients daughter, upon discharge from the hospital yesterday, she appeared better than she had when the patient first came to the ED. Patients daughter reports her mother deteriorated quickly where she was not eating, had trouble breathing and looked sick, prompting the request for EMS. Patients daughter noted her oxygen saturation was in the 70s on room air at home. Denies headache, fever, chills, chest pain, abdominal pain, nausea, vomiting, diarrhea, or urinary changes. Allergies: carbidopa, levodopa PCP: Dr. Espana - Physicial Exam PE: 12/03/19 21:24 wnwd 79 yo female BIBA for shortness of breath head ncat lungs + rales cvs [id number] abd nontender skin warm and dry extremities no erythema neuro alert - Medical Decision Making 12/03/19 21:26 This pt was just discharged yesterday after being admitted for UTI amd chf and tonight she p/w shortness of breath 12/03/19 21:56 cxr ++chf,++effusion 12/03/19 21:58 pt given IV lasix upon arrival and placed on bipap 12/03/19 22:06 pt will need admission 12/03/19 22:07 BIPAP 12/6 Fio2=40% rate=14 12/03/19 23:03 ECHO done 11/24/19 shows EF 50-55% normal LV function,there was a large pericardial effusion but no RA or RV collapse to suggest tamponade 12/03/19 23:05 positive troponin 1.35 bnp>35,000 case discussed with cardiology and will start hepatin gtt pt will be admitted to ICU <Rayne Lau - Last Filed: 12/03/19 23:50> Discharge <Rayne Lau - Last Filed: 12/03/19 23:50> - Discharge Information Problems reviewed: Yes <Geovanny Cooper - Last Filed: 12/04/19 22:29> - Discharge Information Clinical Impression/Diagnosis: NSTEMI (non-ST elevated myocardial infarction), SOB (shortness of breath), JASPER (acute kidney injury) CHF (congestive heart failure) Qualifiers: Heart failure type: unspecified Heart failure chronicity: acute on chronic Qualified Code(s): I50.9 - Heart failure, unspecified CKD (chronic kidney disease) Qualifiers: Chronic kidney disease stage: stage 5, not on chronic dialysis Qualified Code(s): N18.5 - Chronic kidney disease, stage 5
[2019-12-03] MEDS ORDERED: VANCOMYCIN 1 GM in D5W (PRE-DOCKED) 1,000 MG/250 ML IVPB ONE (21:57)
[2019-12-03] MEDS ORDERED: PIPERACILLIN/TAZOB 3.375 GM 3.375 GM in DEXTROSE 5%-WATER - 50 ML IVPB ONE (21:59)
[2019-12-03 22:01] LABS: BASO % 0.7 % (0-2.0); EOS % 0.4 % (0-4.5); HEMATOCRIT 25.6 % (32.4-45.2); HEMOGLOBIN 8.4 GM/dL (10.7-15.3); MCH 26.9 pg (25.7-33.7); MCHC 32.7 g/dl (32.0-36.0); MEAN CELL VOLUME 82.4 fl (80-96); MONO % 10.6 % (3.8-10.2); NEUT % 82.3 % (42.8-82.8); PLATELET COUNT 390 K/MM3 (134-434); RDW 18.1 % (11.6-15.6)
--- NOTE | 2019-12-03 22:05 | PDOC ---
History of Present Illness - General Chief Complaint: Shortness of Breath Stated Complaint: CHF Time Seen by Provider: 12/03/19 20:36 - History of Present Illness Initial Comments: 12/03/19 22:00 79yo F recently DC from this hospital after 10 day stay for UTI tx presents with SOB and desat to the 70s on room air. She was bibems on hi-flow O2, so she was unable to provide history. Per daughter, patient was "not 100%, but better than she was" when she was DC yesterday. She went home and deteriorated, not eating, "looking ill, and having trouble breathing." Past History - Medical History Allergies/Adverse Reactions: Allergies Allergy/AdvReac Type Severity Reaction Status Date / Time carbidopa [From Sinemet] AdvReac Verified 11/23/19 15:47 levodopa [From Sinemet] AdvReac Verified 11/23/19 15:47 Home Medications: Ambulatory Orders Levothyroxine [Synthroid -] 25 mcg PO DAILY 04/24/19 Aspirin 81 mg PO DAILY 04/25/19 Atorvastatin Ca [Lipitor] 20 mg PO HS 04/25/19 Bupropion HCl [Wellbutrin -] 150 mg PO DAILY 04/25/19 Hydralazine HCl 25 mg PO TID 04/25/19 Labetalol HCl [Normodyne -] 400 mg PO TID 04/25/19 Lipase/Protease/Amylase [Creon Dr 36,000 Units Capsule] 1 each PO TID 04/25/19 Mirtazapine 30 mg PO HS 04/25/19 Potassium Chloride 20 meq PO DAILY 04/25/19 Diclofenac Sodium 75 mg PO DAILY 11/23/19 Memantine HCl/Donepezil HCl [Namzaric 14 mg-10 mg Capsule] 1 cap PO DAILY 11/23/19 traZODone HCL [Trazodone HCl] 50 mg PO HS 11/23/19 Acetaminophen [Tylenol .Regular Strength -] 650 mg PO Q4H PRN tablet 12/02/19 Albuterol Sulfate Inhaler - [Ventolin HFA Inhaler -] 2 puff IH Q6H PRN inhaler 12/02/19 Dicyclomine HCl [Bentyl -] 10 mg PO Q6H PRN capsule 12/02/19 Dronabinol [Marinol -] 2.5 mg PO DAILY capsule 12/02/19 Iron Polysaccharides [Niferex-150 -] 150 mg PO DAILY #30 capsule 12/02/19 Labetalol HCl [Normodyne -] 200 mg PO TID tablet 12/02/19 Mag Hydrox/Al Hydrox/Simeth [Mylanta Oral Suspension -] 30 ml PO Q6H PRN #1 bot 12/02/19 Metoclopramide HCl [Reglan -] 10 mg PO TIDAC #90 tablet 12/02/19 Multivitamins [Multivit ([facility] Formul[facility])] 1 tab PO DAILY #30 tab 12/02/19 Pantoprazole Sodium [Protonix -] 20 mg PO DAILY #30 tablet.ec 12/02/19 Polyethylene Glycol 3350 [Miralax 119 gm Btl -] 17 gm PO BID bottle 12/02/19 Sennosides [Senna -] 2 tab PO HS #60 tablet 12/02/19 Torsemide [Demadex -] 40 mg PO DAILY #60 tablet 12/02/19 hydrALAZINE HCL [Apresoline -] 50 mg PO TID tablet 12/02/19 Nifedipine ER [Procardia XL -] 60 mg PO BID 12/04/19 Olmesartan Medoxomil [Benicar (Nf)] 40 mg PO DAILY 12/04/19 Anemia: Yes Asthma: No Cancer: No Cardiac Disorders: Yes CVA: No COPD: No CHF: Yes DVT: No Dementia: Yes Diabetes: Yes GI Disorders: Yes (DIVERTICULOSIS, IBM, GERD, failure to thrive, gastroparesis) Disorders: Yes (UTERINE POLYPS,URINARY INCONTINENCE, JASPER, CKD) HTN: Yes Hypercholesterolemia: Yes Liver Disease: No Psychiatric Problems: Yes (Dementia) Seizures: No Thyroid Disease: Yes - Surgical History Abdominal Surgery: Yes (abdominoplasty 15 yrs ago (tissue became necrotic)) Appendectomy: Yes Cardiac Surgery: No Cholecystectomy: Yes Lung Surgery: No Neurologic Surgery: No Orthopedic Surgery: No - Immunization History Immunization Up to Date: Yes - Psycho-Social/Smoking History Smoking Status: No Smoking History: Unknown if ever smoked Have you smoked in the past 12 months: No Number of Cigarettes Smoked Daily: 0 - Substance Abuse Hx (Audit-C & DAST Scrn) How often the patient has a drink containing alcohol: Never Score: In Men: 4 or > Positive; In Women: 3 or > Positive: 0 Screen Result (Pos requires Nsg. Audit-10AR): Negative In the last yr the pt used illegal drug/Rx for NonMed reason: No Score: Yes response is considered Positive: 0 Screen Result (Positive result requires Nsg. DAST-10): Negative Review of Systems - Review of Systems Able to Perform ROS?: No (on CPAP) Is the patient limited Indian proficient: Yes Constitutional: No: Night Sweats *Physical Exam - Vital Signs Last Vital Signs Temp Pulse Resp BP Pulse Ox 99.9 F H 77 22 H 173/98 H 100 12/03/19 21:10 12/03/19 21:51 12/03/19 21:51 12/03/19 21:51 12/03/19 21:51 - Physical Exam General Appearance: Yes: Nourished, Appropriately Dressed, Apparent Distress, Moderate Distress HEENT: positive: Nasal Congestion Neck: positive: Trachea midline. negative: Rigid, Stridor, Rigidity Respiratory/Chest: positive: Respiratory Distress, Accessory Muscle Use, Labored Respiration, Rapid RR, Rhonchi. negative: Lungs Clear, Normal Breath Sounds Cardiovascular: positive: Regular Rhythm, Regular Rate Gastrointestinal/Abdominal: positive: Normal Bowel Sounds, Soft, Distended Musculoskeletal: positive: Normal Inspection. negative: CVA Tenderness Extremity: positive: Normal Capillary Refill, Pelvis Stable, Coldness Integumentary: positive: Pale Neurologic: positive: Fully Oriented, Alert, Normal Response Heart Score/ECG Review - History History: Slightly suspicious - Electrocardiogram EKG: Non specific repolarization disturbance - Age Age: >/= 65 - Risk Factors Risk Factors Heart Score: Yes Hx Hypertension, Yes Hx Diabetes, Yes Hx Obesity Based on the list above the patient has:: >/=3 risk factors or Hx atherosclerotic disease - Troponin Troponin: >/=3x normal limit - Score Heart Score - Total: 7 - ECG Intrepretation Rhythm: Regular Rhythm - [place]: Left [place] Deviation ED Treatment Course - LABORATORY CBC & Chemistry Diagram: 12/04/19 05:45 12/04/19 05:45 - RADIOLOGY Radiology Studies Ordered: Category Date Time Status CXRPORT [CHEST X-RAY PORTABLE*] [RAD] Stat Radiology 12/03/19 20:39 Taken - Medications Given in the ED: ED Medications Discontinued Medications Generic Name Dose Route Start Last Admin Trade Name Freq PRN Reason Stop Dose Admin Furosemide 40 mg 12/03/19 21:06 12/03/19 21:22 Lasix Injection - IVPUSH 12/03/19 21:07 40 mg ONCE ONE Administration Medical Decision Making - Medical Decision Making 12/03/19 22:08 79yo F recently dc for UTI and had pulmonary and pericardial effusions now p/w SOB. hypertensive, sp02 95% on CPAP, recent h/o pleural effusions -> possibly fluid overloaded, will start bipap and give lasix 40mg IV and reassess. EKG no changes from prior 12/03/19 22:45 reassessment: pt sp02 at 99% on BiPAP. NIBP is 217/78. -> will give nitro paste 1/2" 12/03/19 23:02 Trop 1.35 -> NSTEMI BNP >17240 -> will call for ICU consult and admission w/ cards consult. 12/03/19 23:09 problem list 1. NSTEMI. Trop 1.35 w/ evidence pericardial effusion. 2. dc for complicated UTI 3. pleural + pericardial effusions 4. BNP >57509, on BiPAP, satting at SpO2 70s at home Discharge - Discharge Information Problems reviewed: Yes Clinical Impression/Diagnosis: NSTEMI (non-ST elevated myocardial infarction), SOB (shortness of breath), JASPER (acute kidney injury) CHF (congestive heart failure) Qualifiers: Heart failure type: unspecified Heart failure chronicity: acute on chronic Qualified Code(s): I50.9 - Heart failure, unspecified CKD (chronic kidney disease) Qualifiers: Chronic kidney disease stage: stage 5, not on chronic dialysis Qualified Code(s): N18.5 - Chronic kidney disease, stage 5 - Admission Yes - Follow up/Referral - Patient Discharge Instructions - Post Discharge Activity
[2019-12-03] MEDS ORDERED: PIPERACILLIN/TAZOB 3.375 GM 3.375 GM/50 ML BAG IVPB ONE (22:21)
[2019-12-03 22:34] LABS: ANION GAP 9 MMOL/L (8-16); BILIRUBIN,TOTAL 0.6 mg/dL (0.2-1); BLOOD UREA NITROGEN 49.2 mg/dL (7-18); CALCIUM 8.6 mg/dL (8.5-10.1); CHLORIDE 107 mmol/L (98-107); CO2 26 mmol/L (21-32); CREATININE 2.9 mg/dL (0.55-1.3); GLUCOSE,RANDOM 116 mg/dL (74-106); POTASSIUM 3.7 mmol/L (3.5-5.1); SGOT/AST 56 U/L (15-37); SGPT/ALT 25 U/L (13-61); SODIUM 142 mmol/L (136-145); TOT PROT 6.4 g/dl (6.4-8.2)
[2019-12-03 22:39] LABS: ALK PHOS 169 U/L (45-117); N-TERMINAL BNP > 35000.0 pg/ml (5-450)
[2019-12-03] MEDS ORDERED: NITROGLYCERIN 2% OINTMENT - 1GM PACKET TD ONE (22:45)
[2019-12-03] MEDS ORDERED: ASPIRIN 81 MG CHEWABLE TABLETS PO ONE (23:26)
[2019-12-03] MEDS ORDERED: ASPIRIN 81 MG CHEWABLE TABLETS ONE (23:39)
[2019-12-03] MEDS ORDERED: NIFEdipine 10 MG CAPSULE (FP) PO SCH (23:45)
[2019-12-03] MEDS ORDERED: HEPARIN - 25,000 UNIT in SODIUM CHLORIDE 495 ML IV SCH (23:45)
--- NOTE | 2019-12-03 23:46 | CON.CARD ---
Consult Consult Specialty:: cardiology Reason for Consultation:: elevated TNI; hypertensive emergency - History of Present Illness History of Present Illness: Ms. Cole is a 79 year old female with a significant past medical history DM, diastolic CHF (ECHO 11/23/2019: moderate-large pericardial effusion without evidence of cardiac tamponade), HTN, HLD, Parkinson's disease; dementia; ?CVA, s/p recent admission to [facility] for UTI/CHF (discharged yesterday), who presents to the ED with shortness of breath. HPI is limited secondary to the patient's baseline. As per patients daughter, upon discharge from the hospital yesterday, she appeared better than she had when the patient first came to the ED. Patients daughter reports her mother deteriorated quickly where she was not eating, had trouble breathing and looked sick, prompting the request for EMS. Patients daughter noted her oxygen saturation was in the 70s on room air at home. COVID negative 11/23/2019. BP remains elevated, despite doses today of nifedipine, labetolol, furosemide, torsemide, ?olmesartan, and nitropaste. Denies headache, fever, chills, chest pain, abdominal pain, nausea, vomiting, diarrhea, or urinary changes. Allergies: carbidopa, levodopa PCP: Dr. Espana Cardiology: Dr. Mendez (last seen in office 03/2017) - History Source History Provided By: Medical Record - Past Medical History PRESTIDIGITATOR: Yes: Dementia, Peripheral Neuropathy, Parkinson's Cardio/Vascular: Yes: CHF (diastolic), HTN, Hyperlipdemia Gastrointestinal: Yes: Diverticulosis Psych: Yes: Anxiety Musculoskeletal: Yes: Osteoarthritis Endocrine: Yes: Diabetes Mellitus - Past Surgical History Past Surgical History: Yes: Appendectomy, Cholecystectomy, - Alcohol/Substance Use Hx Alcohol Use: No History of Substance Use: reports: None (unknown) - Smoking History Smoking history: Unknown if ever smoked Have you smoked in the past 12 months: No Aproximately how many cigarettes per day: 0 - Social History Usual Living Arrangement: Alone 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 (also has [employer] PERSON 6 hours x5 days and 5 hours x2 days) History of Recent Travel: No Home Medications - Allergies Allergies/Adverse Reactions: Allergies Allergy/AdvReac Type Severity Reaction Status Date / Time carbidopa [From Sinemet] AdvReac Verified 11/23/19 15:47 levodopa [From Sinemet] AdvReac Verified 11/23/19 15:47 - Home Medications Home Medications: Ambulatory Orders Levothyroxine [Synthroid -] 25 mcg PO DAILY 04/24/19 Aspirin 81 mg PO DAILY 04/25/19 Atorvastatin Ca [Lipitor] 20 mg PO HS 04/25/19 Bupropion HCl [Wellbutrin -] 150 mg PO DAILY 04/25/19 Hydralazine HCl 50 mg PO TID 04/25/19 Labetalol HCl [Normodyne -] 200 mg PO TID 04/25/19 Lipase/Protease/Amylase [Elaine Dr 36,000 Units Capsule] 1 each PO TID 04/25/19 Mirtazapine 30 mg PO HS 04/25/19 Potassium Chloride 20 meq PO DAILY 04/25/19 Diclofenac Sodium 75 mg PO DAILY 11/23/19 Memantine HCl/Donepezil HCl [Namzaric 14 mg-10 mg Capsule] 1 cap PO DAILY 11/23/19 traZODone HCL [Trazodone HCl] 50 mg PO HS 11/23/19 Acetaminophen [Tylenol .Regular Strength -] 650 mg PO Q4H PRN tablet 12/02/19 Albuterol Sulfate Inhaler - [Ventolin HFA Inhaler -] 2 puff IH Q6H PRN inhaler 12/02/19 Dicyclomine HCl [Bentyl -] 10 mg PO Q6H PRN capsule 12/02/19 Dronabinol [Marinol -] 2.5 mg PO DAILY capsule 12/02/19 Iron Polysaccharides [Niferex-150 -] 150 mg PO DAILY #30 capsule 12/02/19 Labetalol HCl [Normodyne -] 200 mg PO TID tablet 12/02/19 Mag Hydrox/Al Hydrox/Simeth [Mylanta Oral Suspension -] 30 ml PO Q6H PRN #1 bot 12/02/19 Metoclopramide HCl [Reglan -] 10 mg PO TIDAC #90 tablet 12/02/19 Multivitamins [Multivit ([facility] Formul[facility])] 1 tab PO DAILY #30 tab 12/02/19 Nifedipine ER [Procardia XL -] 120 mg PO DAILY #60 tab.er.24 12/02/19 Pantoprazole Sodium [Protonix -] 20 mg PO DAILY #30 tablet.ec 12/02/19 Polyethylene Glycol 3350 [Miralax 119 gm Btl -] 17 gm PO BID bottle 12/02/19 Sennosides [Senna -] 2 tab PO HS #60 tablet 12/02/19 Torsemide [Demadex -] 40 mg PO DAILY #60 tablet 12/02/19 hydrALAZINE HCL [Apresoline -] 50 mg PO TID tablet 12/02/19 Vital Signs: Vital Signs Temperature 99.9 F H 12/03/19 21:10 Pulse Rate 78 12/03/19 22:45 Respiratory Rate 12/03/19 22:45 Blood Pressure 217/78 H 12/03/19 22:45 O2 Sat by Pulse Oximetry (%) 98 12/03/19 22:45 - Other Data Labs, Other Data: CBC, BMP 12/03/19 21:45 12/03/19 21:45 Troponin, BNP 12/03/19 21:45 Troponin I 1.35 H* B-Natriuretic Peptide > 08164.0 H Troponin, BNP 12/03/19 21:45 Troponin I 1.35 H* B-Natriuretic Peptide > 97390.0 H Assessment/Plan R/o NSTEMI Uncontrolled HTN Acute/chronic diastolic CHF Recent ECHO (11/23/19) notes moderate-large pericardial effusion, with no evidence of pericardial effusion (08/2018 ECHO: small pericardial effusion) UTI acute/chronic renal dysfunction (BUN 28.7/Cr 1.1 on 03/2019; now 49.2/2.9). DM HLD Parkinson's disease (?allergic to levo/carbidopa) dementia ?Hx CVA chronic anemia COVID negative (11/23/19) Pl: Start IV heparin unless contraindicated; f/u stool quaiac (negative 09/2018) ASA 325 mg, then 81 mg daily On rosuvastatin; give high-dose daily, or change to atorvastatin 80 mg daily. Serial TNI and EKGs; telemetry. ICU admission: If PO medications are inadequate to control HTN, would start IV labetolol (or, alternatively, IV NTG) Avoid excessive dehydration (on furosemide and torsemide); also problematic continuing ARB with present renal dysfunction. F/u with sales and marketing manager. F/u BUN/Cr, electrolytes, daily weight, Is and Os. Low threshold to repeat ECHO to r/o progression/effects of pericardial effusion. W/u of UTI; Antibiotics per ID.
[2019-12-03] MEDS ORDERED: HEPARIN NA (PORCINE) 5,000 UNITS/ML 1ML VIAL IVPUSH PRN ×3 (23:50→23:59)
[2019-12-03] MEDS ORDERED: hydrALAZINE HCL 25 MG TABLET (FP) PO ONE (23:55)
[2019-12-03] MEDS ORDERED: LABETALOL HCL 200 MG TABLET (FP) PO ONE (23:55)
[2019-12-03] MEDS ORDERED: VANCOMYCIN 1 GRAM (PRE-DOCKED) 1,000 MG/250 ML BAG IVPB ONE (23:56)
[2019-12-03] MEDS ORDERED: HEPARIN INFUSION - 25,000 UNITS/500 ML INFUS.BAG IVPB ONE (23:57)
--- NOTE | 2019-12-03 23:58 | CONSULT ---
Consultation: REQUESTING PROVIDER: CONSULT REQUEST: We have been asked to medically evaluate this patient for (specify). HISTORY OF PRESENT ILLNESS: 79 yo female with PMHx of Dementia,Parkinsin's Disease, HTN, CHF, DM, CKD, pericardial fluid Diveticulosis presents to ED for shortness of breath. Pt currently on Bipap and unable to give history. According to daughter who is at bedside. Pt was recently discharged for UTI on Wednesday. Pt on wednesday had no symptoms but then today daughter noticed pt have increased SOB with gurgling so called EMS. PMH: htn, chf, DM, ckd, PD, dementia Meds: Levothyroxine [Synthroid -] 25 mcg PO DAILY 04/24/19 Aspirin 81 mg PO DAILY 04/25/19 Atorvastatin Ca [Lipitor] 20 mg PO HS 04/25/19 Bupropion HCl [Wellbutrin -] 150 mg PO DAILY 04/25/19 Hydralazine HCl 50 mg PO TID 04/25/19 Labetalol HCl [Normodyne -] 200 mg PO TID 04/25/19 Lipase/Protease/Amylase [Creon Dr 36,000 Units Capsule] 1 each PO TID 04/25/19 Mirtazapine 30 mg PO HS 04/25/19 Potassium Chloride 20 meq PO DAILY 04/25/19 Diclofenac Sodium 75 mg PO DAILY 11/23/19 Memantine HCl/Donepezil HCl [Namzaric 14 mg-10 mg Capsule] 1 cap PO DAILY 11/23/19 traZODone HCL [Trazodone HCl] 50 mg PO HS 11/23/19 Acetaminophen [Tylenol .Regular Strength -] 650 mg PO Q4H PRN tablet 12/02/19 Albuterol Sulfate Inhaler - [Ventolin HFA Inhaler -] 2 puff IH Q6H PRN inhaler 12/02/19 Dicyclomine HCl [Bentyl -] 10 mg PO Q6H PRN capsule 12/02/19 Dronabinol [Marinol -] 2.5 mg PO DAILY capsule 12/02/19 Iron Polysaccharides [Niferex-150 -] 150 mg PO DAILY #30 capsule 12/02/19 Labetalol HCl [Normodyne -] 200 mg PO TID tablet 12/02/19 Mag Hydrox/Al Hydrox/Simeth [Mylanta Oral Suspension -] 30 ml PO Q6H PRN #1 bot 12/02/19 Metoclopramide HCl [Reglan -] 10 mg PO TIDAC #90 tablet 12/02/19 Multivitamins [Multivit ([facility] Formul[facility])] 1 tab PO DAILY #30 tab 12/02/19 Nifedipine ER [Procardia XL -] 120 mg PO DAILY #60 tab.er.24 12/02/19 Pantoprazole Sodium [Protonix -] 20 mg PO DAILY #30 tablet.ec 12/02/19 Polyethylene Glycol 3350 [Miralax 119 gm Btl -] 17 gm PO BID bottle 12/02/19 Sennosides [Senna -] 2 tab PO HS #60 tablet 12/02/19 Torsemide [Demadex -] 40 mg PO DAILY #60 tablet 12/02/19 hydrALAZINE HCL [Apresoline -] 50 mg PO TID tablet 12/02/19 PSH: appendectomy, Cholecystectomy, , gastric bypas Allergies: carbidopa, levodopa Social: denies smoking, drugs or alcohol. Pt has home health aid 12/10. Pt is full code D PCP: Dr. Espana Neuro: Dr. Foreman REVIEW OF SYSTEMS: Unable to obtain due to pt condition PHYSICAL EXAMINATION Vital Signs - 24 hr 12/03/19 12/03/19 12/03/19 20:39 21:10 21:51 Temperature 99.1 F 99.9 F H Pulse Rate 76 Pulse Rate [ 77 Left Radial] Respiratory 15 22 H Rate Blood Pressure 173/67 H Blood Pressure 173/98 H [Left Arm] O2 Sat by Pulse 95 100 Oximetry (%) 12/03/19 12/03/19 22:00 22:45 Temperature Pulse Rate Pulse Rate [ 78 Left Radial] Respiratory 20 Rate Blood Pressure Blood Pressure 217/78 H [Left Arm] O2 Sat by Pulse 100 98 Oximetry (%) GENERAL: Awake, alert, and fully oriented, in severe distress. HEAD: Normal with no signs of trauma on bipap. EYES: Pupils equal, round and reactive to light, extraocular movements intact EARS, NOSE, THROAT: Ears normal, nares patent, oropharynx clear without exudates. Moist mucous membranes. NECK: Normal range of motion, supple without lymphadenopathy, JVD, or masses. LUNGS: Bilateral rhonchi in all lung thorne. HEART: Regular rhythm and rhtym ABDOMEN: Healed surgical scars. UPPER EXTREMITIES: 2+ pulses, warm, well-perfused. No cyanosis. No clubbing. Cap refill <2 seconds. No peripheral edema. LOWER EXTREMITIES: 2+ pulses, warm, well-perfused. No calf tenderness. No peripheral edema. NEUROLOGICAL: Cranial nerves II-XII grossly intact. PSYCHIATRIC: Cooperative. Good eye contact. Appropriate mood and affect. SKIN: Warm, dry, normal turgor, no rashes or lesions noted. Laboratory Results - last 24 hr 12/03/19 12/03/19 12/03/19 21:45 21:45 21:45 WBC 12.0 H RBC 3.10 L Hgb 8.4 L Hct 25.6 L MCV 82.4 MCH 26.9 MCHC 32.7 RDW 18.1 H Plt Count 390 MPV 7.0 L Absolute Neuts (auto) 9.9 H Neutrophils % 82.3 Lymphocytes % 6.0 L D Monocytes % 10.6 H D Eosinophils % 0.4 Basophils % 0.7 Nucleated RBC % 0 Sodium 142 Potassium 3.7 Chloride 107 Carbon Dioxide 26 Anion Gap 9 BUN 49.2 H Creatinine 2.9 H Est GFR (CKD-EPI)AfAm 17.37 Est GFR (CKD-EPI)NonAf 14.99 Random Glucose 116 H Lactic Acid 1.3 Calcium 8.6 Total Bilirubin 0.6 AST 56 H ALT 25 Alkaline Phosphatase 169 H Creatine Kinase 95 Troponin I 1.35 H* B-Natriuretic Peptide > 42754.0 H Total Protein 6.4 Albumin 3.0 L Active Medications Generic Name Dose Route Start Last Admin Trade Name Freq PRN Reason Stop Dose Admin Heparin Sodium (Porcine) 1,000 unit 12/03/19 23:50 Heparin - IVPUSH PRN PRN Heparin Heparin Sodium (Porcine) 5,000 unit 12/03/19 23:50 Heparin - IVPUSH PRN PRN Heparin Heparin Sodium (Porcine) 25, 500 mls @ 17.28 mls/hr 12/03/19 23:45 000 unit/ Sodium Chloride IV TITR [facility] Protocol 864 UNIT/HR Nifedipine 30 mg 12/03/19 23:45 Procardia Capsule - PO TID [facility] ASSESSMENT/PLAN: Dispo: We will continue to follow the patient. Thank you for this consultative opportunity. Neuro: - PMH dementia and PD- will continue home medication memantine/donepezil- giving 5mg BID Memantine with pharm recommendation. Holding Donepezil due to prolong QTc with Azithromycin for PNA Cardiology - appreciate cardiology consult - CHF with hypertensive emergency with systolic BP of 205 - Possible NSTEMI vs demand ischemia with troponin elevation at 9:45pm at 1.35 repeat at 12:45 AM (12/03) - Pt was given nitro paste .5 inch, asn 325 mg, Furosemide 40mgx2, heparin drip, Hydralazine 25mg,, nifedipine 30mg - Pt is on Bipap and started on Nitroglycerin drip because htn emergency which is evident by rising troponin. Due to elevated systolic BP and overt pulm edema on CXR drip was started and titrated to effect. Will titrate drip to keep SBP around 160/170s -pmh hld will cont home meds - Pt home htn meds held due to IV BP medication Pulm - on my read pt bilateral vascular congestion worse since previous exam questionable right and left infiltrates vs atelectasis. Borderline temp 99.9 F rectal. Will cover for HCAP due to recent admission to hospital zosyn 4.5 g IV BID Renally titrated, Azithromycin 500 mg IV once daily, vanco 1g every day (renally titrated) ( not started due to ID only) - pt has bipap settings 02/24/14 with improvement in ventilation effort - History of pleural effusions will monitor - Chest xray AM - Target SpO2>92% GI - pt has multiple abd surgeries - home dose reglan 10mg before each meal- due to prolong QTc with Azithromycin will give protonix 40mg QD and monitor - Pt also takes creon 36,000 units at home TID will continue - pt takes unkown daily dose of miralax and senna- will give previous admission dose. Titrate as needed - dicyclomine 10mg every 6 hours as needed for stomach pain will give prn - Sodium restrictive diet - nephrology consult appreciated - Furosemide 80mg TID home dose- hold until nephro consults - JASPER on CKD - Monitor Is and Os - Monitor electrolytes - Urine culture 11/23/2019 shows ECOLI ESBL producing zosyn innsensitivity in vitro may not be susceptible to In vivo will differ to ID for abx suspected UTI and HCAP Pna - Pt takes 20 mg PO KCl daily will monitor and replete as needed Endo - hypothyroidism- maintain home meds levo .025 mg FEN - monitor electrolytes PPx -DVT- on heparin drip Dispo - Pt requires ICU care Visit type - Medication Review Med list reviewed for High Risk Meds patients 65 and older: Yes - Emergency Visit Emergency Visit: Yes ED Registration Date: 12/03/19 Care time: The patient presented to the Emergency Department on the above date and was hospitalized for further evaluation of their emergent condition. - New Patient This patient is new to me today: Yes Date on this admission: 12/03/19 - Critical Care Critical Care patient: Yes Total Critical Care Time (in minutes): 36 Critical Care Statement: The care of this patient involved high complexity decision making to prevent further life threatening deterioration of the patient's condition and/or to evaluate & treat vital organ system(s) failure or risk of failure. ATTENDING PHYSICIAN STATEMENT I saw and evaluated the patient. I reviewed the resident's note and discussed the case with the resident. I agree with the resident's findings and plan as documented. SUBJECTIVE: OBJECTIVE: ASSESSMENT AND PLAN:
[2019-12-04] MEDS ORDERED: NITROGLYCERIN 50MG/D5W 250ML 50 MG/250 ML ML IVPB SCH
[2019-12-04] MEDS ORDERED: hydrALAZINE HCL 25 MG TABLET (FP) ONE (00:06)
[2019-12-04] MEDS ORDERED: LABETALOL HCL 100 MG TABLET (FP) ONE (00:06)
[2019-12-04] MEDS ORDERED: NIFEdipine E.R. 30 MG TABLET ONE (00:07)
[2019-12-04] MEDS ORDERED: NITROGLYCERIN 25MG/D5W 250ML 25 MG/250 ML ML IVPB ONE (00:16)
[2019-12-04] MEDS ORDERED: NITROGLYCERIN 25MG/D5W 250ML 25 MG/250 ML ML IVPB SCH ×3 (00:30→02:24)
[2019-12-04 00:53] LABS: EPI CELLS >36 /uL (0-25.1); HYALINE CASTS 41 /uL (0-3.1); URINE APPEARANCE TURBID; URINE BILIRUBIN NEGATIVE (NEGATIVE); URINE COLOR YELLOW; URINE GLUCOSE (UA) NEGATIVE (NEGATIVE); URINE KETONE NEGATIVE (NEGATIVE); URINE LEUK ESTERASE 2+ (NEGATIVE); URINE NITRITE NEGATIVE (NEGATIVE); URINE PROTEIN 3+ (NEGATIVE); URINE WBC 10481 /uL (0-25.8)
[2019-12-04] MEDS ORDERED: HEPARIN NA (PORCINE) 5,000 UNITS/ML 1ML VIAL IVPUSH PRN ×2 (01:57)
[2019-12-04 02:15] LABS: URINE BACTERIA 979.9 /uL (0-1359); URINE RBC 204.8 /uL (0-23.9)
[2019-12-04 02:16] LABS: YEAST MODERATE (NEGATIVE)
[2019-12-04] MEDS: HEPARIN INFUSION - 25,000 UNITS/500 ML INFUS.BAG IVPB SCH (02:44)
[2019-12-04] MEDS ORDERED: LABETALOL HCL 5 MG/1 ML (100MG/20 ML VIAL) IVPUSH ONE (05:31)
[2019-12-04] MEDS ORDERED: SENNOSIDES 8.6MG TABLET (FP) PO PRN (05:47)
[2019-12-04] MEDS: LEVOTHYROXINE NA 25 MCG TABLET (FP) PO SCH (06:23)
[2019-12-04] MEDS ORDERED: FUROSEMIDE 40 MG/4 ML INJECTABLE VIAL IVPUSH ONE ×2 (06:47→08:13)
[2019-12-04 07:47] LABS: BASO % 0.8 % (0-2.0); EOS % 1.4 % (0-4.5); HEMATOCRIT 22.6 % (32.4-45.2); HEMOGLOBIN 7.4 GM/dL (10.7-15.3); LYMPH % 6.6 % (8-40); MCH 26.6 pg (25.7-33.7); MCHC 32.6 g/dl (32.0-36.0); MEAN CELL VOLUME 81.6 fl (80-96); MEAN PLT VOLUME 7.3 fl (7.5-11.1); MONO % 12.2 % (3.8-10.2); PLATELET COUNT 369 K/MM3 (134-434); RBC 2.77 M/mm3 (3.60-5.2); RDW 18.6 % (11.6-15.6); WHITE BLOOD COUNT 14.9 K/mm3 (4.0-10.0)
[2019-12-04 07:59] LABS: ALBUMIN 2.5 g/dl (3.4-5.0); BLOOD UREA NITROGEN 46.8 mg/dL (7-18); CREATININE 2.8 mg/dL (0.55-1.3); MAGNESIUM 2.2 mg/dL (1.8-2.4); POTASSIUM 3.5 mmol/L (3.5-5.1); TOT PROT 6.2 g/dl (6.4-8.2)
--- NOTE | 2019-12-04 08:06 | HP ---
Admitting History and Physical - Past Medical History [employer]: Yes: Dementia, Peripheral Neuropathy, Parkinson's Cardiovascular: Yes: CHF (diastolic), HTN, Hyperlipdemia Gastrointestinal: Yes: Diverticulosis Psych: Yes: Anxiety Musculoskeletal: Yes: Osteoarthritis Endocrine: Yes: Diabetes Mellitus - Past Surgical History Past Surgical History: Yes: Appendectomy, Cholecystectomy, - Smoking History Smoking history: Unknown if ever smoked Have you smoked in the past 12 months: No Aproximately how many cigarettes per day: 0 - Alcohol/Substance Use Hx Alcohol Use: No History of Substance Use: reports: None (unknown) - Social History 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 (also has [employer]MENT [employer] 6 hours x5 days and 5 hours x2 days) History of Recent Travel: No Home Medications - Allergies Allergies/Adverse Reactions: Allergies Allergy/AdvReac Type Severity Reaction Status Date / Time carbidopa [From Sinemet] AdvReac Verified 11/23/19 15:47 levodopa [From Sinemet] AdvReac Verified 11/23/19 15:47 - Home Medications Home Medications: Ambulatory Orders Levothyroxine [Synthroid -] 25 mcg PO DAILY 04/24/19 Aspirin 81 mg PO DAILY 04/25/19 Atorvastatin Ca [Lipitor] 20 mg PO HS 04/25/19 Bupropion HCl [Wellbutrin -] 150 mg PO DAILY 04/25/19 Hydralazine HCl 50 mg PO TID 04/25/19 Labetalol HCl [Normodyne -] 200 mg PO TID 04/25/19 Lipase/Protease/Amylase [Creon Dr 36,000 Units Capsule] 1 each PO TID 04/25/19 Mirtazapine 30 mg PO HS 04/25/19 Potassium Chloride 20 meq PO DAILY 04/25/19 Diclofenac Sodium 75 mg PO DAILY 11/23/19 Memantine HCl/Donepezil HCl [Namzaric 14 mg-10 mg Capsule] 1 cap PO DAILY 11/23/19 traZODone HCL [Trazodone HCl] 50 mg PO HS 11/23/19 Acetaminophen [Tylenol .Regular Strength -] 650 mg PO Q4H PRN tablet 12/02/19 Albuterol Sulfate Inhaler - [Ventolin HFA Inhaler -] 2 puff IH Q6H PRN inhaler 12/02/19 Dicyclomine HCl [Bentyl -] 10 mg PO Q6H PRN capsule 12/02/19 Dronabinol [Marinol -] 2.5 mg PO DAILY capsule 12/02/19 Iron Polysaccharides [Niferex-150 -] 150 mg PO DAILY #30 capsule 12/02/19 Labetalol HCl [Normodyne -] 200 mg PO TID tablet 12/02/19 Mag Hydrox/Al Hydrox/Simeth [Mylanta Oral Suspension -] 30 ml PO Q6H PRN #1 bot 12/02/19 Metoclopramide HCl [Reglan -] 10 mg PO TIDAC #90 tablet 12/02/19 Multivitamins [Multivit (RH Formulary)] 1 tab PO DAILY #30 tab 12/02/19 Nifedipine ER [Procardia XL -] 120 mg PO DAILY #60 tab.er.24 12/02/19 Pantoprazole Sodium [Protonix -] 20 mg PO DAILY #30 tablet.ec 12/02/19 Polyethylene Glycol 3350 [Miralax 119 gm Btl -] 17 gm PO BID bottle 12/02/19 Sennosides [Senna -] 2 tab PO HS #60 tablet 12/02/19 Torsemide [Demadex -] 40 mg PO DAILY #60 tablet 12/02/19 hydrALAZINE HCL [Apresoline -] 50 mg PO TID tablet 12/02/19 Physical Examination Vital Signs: Vital Signs Temperature 98.7 F 12/04/19 06:00 Pulse Rate 64 12/04/19 06:40 Respiratory Rate 14 12/04/19 06:40 Blood Pressure 186/53 H 12/04/19 06:40 O2 Sat by Pulse Oximetry (%) 100 12/04/19 06:40 Labs: CBC, BMP 12/04/19 05:45 12/04/19 05:45 Problem List - Problems (1) CHF (congestive heart failure) Assessment/Plan: lasix 40 ivp bid follow up cxr Code(s): I50.9 - HEART FAILURE, UNSPECIFIED Qualifiers: Heart failure type: unspecified Heart failure chronicity: acute on chronic Qualified Code(s): I50.9 - Heart failure, unspecified (2) CKD (chronic kidney disease) Assessment/Plan: continue with lasix follow labs renal consult Code(s): N18.9 - CHRONIC KIDNEY DISEASE, UNSPECIFIED Qualifiers: Chronic kidney disease stage: stage 5, not on chronic dialysis Qualified Code(s): N18.5 - Chronic kidney disease, stage 5 (3) Anemia Assessment/Plan: transfuse one unt 'prbc lasix after transfusion gi consult Code(s): D64.9 - ANEMIA, UNSPECIFIED (4) Diabetes Code(s): E11.9 - TYPE 2 DIABETES MELLITUS WITHOUT COMPLICATIONS (5) Elevated troponin Assessment/Plan: follow trends cardio Code(s): R74.8 - ABNORMAL LEVELS OF OTHER SERUM ENZYMES (6) HTN (hypertension) Assessment/Plan: Selected Entries 12/04/19 12/04/19 12/04/19 06:30 06:40 08:00 Blood Pressure 179/59 H 186/53 H 194/57 H 12/04/19 10:00 Blood Pressure 170/51 L Resume home meds and monitor Code(s): I10 - ESSENTIAL (PRIMARY) HYPERTENSION
[2019-12-04] MEDS ORDERED: ACETAMINOPHEN 325 MG TABLET (FP) PO PRN (08:10)
[2019-12-04] MEDS ORDERED: PT OWN MED DRAWER 7, Y5N ONE ×4 (08:46→21:48)
[2019-12-04] MEDS: PANTOPRAZOLE SODIUM 40 MG VIAL IVPUSH SCH (09:14)
[2019-12-04] MEDS: ASPIRIN 81 MG CHEWABLE TABLETS PO SCH (09:14)
[2019-12-04] MEDS: AZITHROMYCIN IVPB 500 MG/250 ML BAG IVPB SCH (09:14)
[2019-12-04] MEDS: LIPASE/PROTEASE/AMYLASE 36,000 UNIT CAPSULE PO SCH ×3 (09:15→17:40)
[2019-12-04] MEDS ORDERED: DEXTROSE 5%-WATER 100 ML IVPB ONE (09:29)
[2019-12-04] MEDS ORDERED: PIPERACILLIN/TAZOBACTAM 4.5 GM VIAL IVPB ONE (09:29)
[2019-12-04] MEDS ORDERED: PIPERACILLIN/TAZOB 4.5 GM 4.5 GM in DEXTROSE 5%-WATER 100 ML IVPB SCH (10:00)
[2019-12-04] MEDS ORDERED: DONEPEZIL HCL 10 MG TABLET (FP) PO SCH (10:00)
--- NOTE | 2019-12-04 10:31 | EKG ---
Test Reason : Blood Pressure : / mmHG Vent. Rate : 073 BPM Atrial Rate : 073 BPM P-R Int : 186 ms QRS Dur : 114 ms QT Int : 400 ms P-R-T Axes : -12 -40 098 degrees QTc Int : 440 ms NORMAL SINUS RHYTHM LEFT AXIS DEVIATION NONSPECIFIC ST AND T WAVE ABNORMALITY ABNORMAL ECG WHEN COMPARED WITH ECG OF 03-DEC-2019 21:02, T WAVE VARIATION Confirmed by KELSEY MARADIAGA MD ([id number]) on 12/04/2019 10:31:17 AM Referred By: Confirmed By:KELSEY MARADIAGA MD
[2019-12-04] MEDS: POLYETHYLENE GLYCOL 3350 119 GM BTL PO SCH ×2 (10:38→21:46)
--- NOTE | 2019-12-04 10:38 | EKG ---
Test Reason : Blood Pressure : / mmHG Vent. Rate : 075 BPM Atrial Rate : 075 BPM P-R Int : 168 ms QRS Dur : 106 ms QT Int : 404 ms P-R-T Axes : -15 -44 058 degrees QTc Int : 451 ms NORMAL SINUS RHYTHM LEFT AXIS DEVIATION NONSPECIFIC ST AND T WAVE ABNORMALITY ABNORMAL ECG WHEN COMPARED WITH ECG OF 24-NOV-2019 12:24, T WAVE VARIATION Confirmed by KELSEY MARADIAGA MD ([id number]) on 12/04/2019 10:38:03 AM Referred By: Confirmed By:KELSEY MARADIAGA MD
[2019-12-04] MEDS: MEMANTINE HCL 5 MG TABLET (UD) PO SCH ×3 (10:39→22:42)
--- NOTE | 2019-12-04 10:48 | PN ---
Progress Note, Physician History of Present Illness: Ms. Cole is a 79 year old female with a significant past medical history DM, diastolic CHF (ECHO 11/23/2019: moderate-large pericardial effusion without evidence of cardiac tamponade), HTN, HLD, Parkinson's disease; dementia; ?CVA, s/p recent admission to [facility] for UTI/CHF (discharged yesterday), who presents to the ED with shortness of breath. HPI is limited secondary to the pat ient's baseline. As per patients daughter, upon discharge from the hospital yesterday, she appeared better than she had when the patient first came to the ED. Patients daughter reports her mother deteriorated quickly where she was not eating, had trouble breathing and looked sick, prompting the request for EMS. Patients daughter noted her oxygen saturation was in the 70s on room air at home. COVID negative 11/23/2019. BP remains elevated, despite doses today of nifedipine, labetolol, furosemide, torsemide, ?olmesartan, and nitropaste. Denies headache, fever, chills, chest pain, abdominal pain, nausea, vomiting, diarrhea, or urinary changes. Allergies: carbidopa, levodopa PCP: Dr. Espana Cardiology: Dr. Mendez (last seen in office 03/2017) - Current Medication List Current Medications: Active Medications Acetaminophen (Tylenol -) 650 mg PO Q4H PRN PRN Reason: PAIN 1-6 Aspirin (Asa -) 81 mg PO DAILY [facility] Last Admin: 12/04/19 09:14 Dose: 81 mg Documented by: Atorvastatin Calcium (Lipitor -) 80 mg PO HS [facility] Chlorhexidine Gluconate (Hibiclens For Decolonization -) 1 applic TP HS [facility] Dicyclomine HCl (Bentyl -) 10 mg PO Q6H PRN PRN Reason: MUSCLE SPASMS Furosemide (Lasix Injection -) 40 mg IVPUSH BID@0600,1400 [facility] Heparin Sodium (Porcine) (Heparin -) 1,000 unit IVPUSH PRN PRN PRN Reason: Heparin Heparin Sodium (Porcine) (Heparin -) 5,000 unit IVPUSH PRN PRN PRN Reason: Heparin Hydralazine HCl (Apresoline -) 50 mg PO TID [facility] Heparin Sodium/Dextrose (Heparin Infusion -) 25,000 units in 500 mls @ 18 mls/hr IVPB TITR [facility]; Protocol Last Admin: 12/04/19 02:44 Dose: 900 units/hr, 18 mls/hr Documented by: Nitroglycerin/Dextrose (Nitroglycerin 25mg/D5w 250ml) 25 mg in 250 mls @ 6 mls/hr IVPB TITR [facility]; Protocol Last Titration: 12/04/19 05:23 Dose: 63 mcg/min, 37.8 mls/hr Documented by: Piperacillin Sod/Tazobactam (Sod 4.5 gm/ Dextrose) 100 mls @ 200 mls/hr IVPB BID [facility]; Protocol Azithromycin (Zithromax 500mg Ivpb (Pre-Docked)) 500 mg in 250 mls @ 250 mls/hr IVPB DAILY [facility] Last Admin: 12/04/19 09:14 Dose: 250 mls/hr Documented by: Piperacillin Sod/Tazobactam (Sod 4.5 gm/ Dextrose) 100 mls @ 200 mls/hr IVPB BID [facility]; Protocol Stop: 12/04/19 22:29 Last Admin: 12/04/19 10:39 Dose: 200 mls/hr Documented by: Labetalol HCl (Normodyne -) 200 mg PO TID [facility] Levothyroxine Sodium (Synthroid -) 25 mcg PO DAILY@0700 [facility] Last Admin: 12/04/19 06:23 Dose: 25 mcg Documented by: Memantine (Namenda -) 5 mg PO BID [facility] Last Admin: 12/04/19 10:39 Dose: 5 mg Documented by: Mirtazapine (Remeron -) 30 mg PO [facility] Mupirocin (Bactroban Ointment (For Decolonization) -) 1 applic NS BID [facility] Stop: 12/09/19 09:59 Pancrelipase (Creon Dr 36,000 Units Capsule) 1 cap PO TIDCM [facility] Last Admin: 12/04/19 09:15 Dose: 1 cap Documented by: Pantoprazole Sodium (Protonix Iv) 40 mg IVPUSH DAILY [facility] Last Admin: 12/04/19 09:14 Dose: 40 mg Documented by: Polyethylene Glycol (Miralax (For Daily Use) -) 17 gm PO BID [facility] Last Admin: 12/04/19 10:38 Dose: 17 gm Documented by: Senna (Senna -) 2 tab PO HS PRN PRN Reason: CONSTIPATION - Objective Vital Signs: Vital Signs Temperature 98.4 F 12/04/19 10:00 Pulse Rate 66 12/04/19 10:00 Respiratory Rate 17 12/04/19 10:00 Blood Pressure 170/51 L 12/04/19 10:00 O2 Sat by Pulse Oximetry (%) 100 12/04/19 10:00 Eyes: Yes: WNL, Conjunctiva Clear, EOM Intact HENT: Yes: WNL, Atraumatic, Normocephalic Neck: Yes: WNL, Supple, Trachea Midline Cardiovascular: Yes: WNL, Regular Rate and Rhythm Respiratory: Yes: WNL, Regular, Diminished Gastrointestinal: Yes: WNL, Normal Bowel Sounds Genitourinary: Yes: WNL Musculoskeletal: Yes: WNL Extremities: Yes: WNL Edema: No Integumentary: Yes: WNL Labs: CBC, BMP 12/04/19 05:45 12/04/19 05:45 Problem List - Problems (1) JASPER (acute kidney injury) Code(s): N17.9 - ACUTE KIDNEY FAILURE, UNSPECIFIED (2) CHF (congestive heart failure) Code(s): I50.9 - HEART FAILURE, UNSPECIFIED Qualifiers: Heart failure type: unspecified Heart failure chronicity: acute on chronic Qualified Code(s): I50.9 - Heart failure, unspecified (3) CKD (chronic kidney disease) Code(s): N18.9 - CHRONIC KIDNEY DISEASE, UNSPECIFIED Qualifiers: Chronic kidney disease stage: stage 5, not on chronic dialysis Qualified Code(s): N18.5 - Chronic kidney disease, stage 5 (4) NSTEMI (non-ST elevated myocardial infarction) Code(s): I21.4 - NON-ST ELEVATION (NSTEMI) MYOCARDIAL INFARCTION (5) SOB (shortness of breath) Code(s): R06.02 - SHORTNESS OF BREATH (6) Abdominal pain Code(s): R10.9 - UNSPECIFIED ABDOMINAL PAIN Qualifiers: Abdominal location: generalized Qualified Code(s): R10.84 - Generalized abdominal pain (7) Abnormal CT of the abdomen Code(s): R93.5 - ABN FINDINGS ON DX IMAGING OF ABD REGIONS, INC RETROPERITON (8) Abnormal CXR Code(s): R93.89 - ABNORMAL FINDINGS ON DX IMAGING OF OTH BODY STRUCTURES (9) Acute kidney injury superimposed on CKD Code(s): N17.9 - ACUTE KIDNEY FAILURE, UNSPECIFIED; N18.9 - CHRONIC KIDNEY DISEASE, UNSPECIFIED (10) Acute kidney injury superimposed on chronic kidney disease Code(s): N17.9 - ACUTE KIDNEY FAILURE, UNSPECIFIED; N18.9 - CHRONIC KIDNEY DISEASE, UNSPECIFIED (11) Acute on chronic diastolic (congestive) heart failure Code(s): I50.33 - ACUTE ON CHRONIC DIASTOLIC (CONGESTIVE) HEART FAILURE (12) Acute on chronic diastolic heart failure Code(s): I50.33 - ACUTE ON CHRONIC DIASTOLIC (CONGESTIVE) HEART FAILURE (13) Anemia Code(s): D64.9 - ANEMIA, UNSPECIFIED (14) Anemia Code(s): D64.9 - ANEMIA, UNSPECIFIED (15) Anemia Code(s): D64.9 - ANEMIA, UNSPECIFIED (16) Arthritis Code(s): M19.90 - UNSPECIFIED OSTEOARTHRITIS, UNSPECIFIED SITE (17) Chest pain Code(s): R07.9 - CHEST PAIN, UNSPECIFIED Qualifiers: Chest pain type: unspecified Qualified Code(s): R07.9 - Chest pain, unspecified (18) Chronic edema Code(s): R60.9 - EDEMA, UNSPECIFIED (19) Clostridium difficile diarrhea Code(s): A04.72 - ENTEROCOLITIS D/T CLOSTRIDIUM DIFFICILE, NOT SPCF RECUR (20) Colitis Code(s): K52.9 - NONINFECTIVE GASTROENTERITIS AND COLITIS, UNSPECIFIED (21) Constipation Code(s): K59.00 - CONSTIPATION, UNSPECIFIED (22) Cystitis Code(s): N30.90 - CYSTITIS, UNSPECIFIED WITHOUT HEMATURIA (23) Dementia Code(s): F03.90 - UNSPECIFIED DEMENTIA WITHOUT BEHAVIORAL DISTURBANCE (24) Depression Code(s): F32.9 - MAJOR DEPRESSIVE DISORDER, SINGLE EPISODE, UNSPECIFIED (25) Diabetes Code(s): E11.9 - TYPE 2 DIABETES MELLITUS WITHOUT COMPLICATIONS (26) Diabetes mellitus with autonomic neuropathy Code(s): E11.43 - TYPE 2 DIABETES W DIABETIC AUTONOMIC (POLY)NEUROPATHY (27) Diabetes mellitus with neuropathy Code(s): E11.40 - TYPE 2 DIABETES MELLITUS WITH DIABETIC NEUROPATHY, UNSP (28) Diarrhea Code(s): R19.7 - DIARRHEA, UNSPECIFIED (29) Diverticulosis Code(s): K57.90 - DVRTCLOS OF INTEST, PART UNSP, W/O PERF OR ABSCESS W/O BLEED (30) Dizziness Code(s): R42 - DIZZINESS AND GIDDINESS (31) Edema Code(s): R60.9 - EDEMA, UNSPECIFIED Qualifiers: Edema type: unspecified Qualified Code(s): R60.9 - Edema, unspecified (32) Elevated troponin Code(s): R74.8 - ABNORMAL LEVELS OF OTHER SERUM ENZYMES (33) Elevated troponin Code(s): R74.8 - ABNORMAL LEVELS OF OTHER SERUM ENZYMES (34) Emphysematous cystitis Code(s): N30.80 - OTHER CYSTITIS WITHOUT HEMATURIA (35) Epigastric pain Code(s): R10.13 - EPIGASTRIC PAIN (36) Failure to thrive Code(s): RGE6227 - Qualifiers: Failure to thrive age range: in adult Qualified Code(s): R62.7 - Adult failure to thrive (37) Finger fracture, left Code(s): S62.609A - FRACTURE OF UNSP PHALANX OF UNSP FINGER, INIT FOR CLOS FX (38) Frequent falls Code(s): R29.6 - REPEATED FALLS (39) GERD (gastroesophageal reflux disease) Code(s): K21.9 - GASTRO-ESOPHAGEAL REFLUX DISEASE WITHOUT ESOPHAGITIS (40) Gastroparesis due to DM Code(s): E11.43 - TYPE 2 DIABETES W DIABETIC AUTONOMIC (POLY)NEUROPATHY; K31.84 - GASTROPARESIS (41) HLD (hyperlipidemia) Code(s): E78.5 - HYPERLIPIDEMIA, UNSPECIFIED (42) HTN (hypertension) Code(s): I10 - ESSENTIAL (PRIMARY) HYPERTENSION (43) HTN (hypertension) Code(s): I10 - ESSENTIAL (PRIMARY) HYPERTENSION (44) Headache Code(s): R51 - HEADACHE (45) Hematochezia Code(s): K92.1 - MELENA (46) Hyperglycemia Code(s): R73.9 - HYPERGLYCEMIA, UNSPECIFIED (47) Hypernatremia Code(s): E87.0 - HYPEROSMOLALITY AND HYPERNATREMIA (48) Hypervolemia Code(s): E87.70 - FLUID OVERLOAD, UNSPECIFIED Qualifiers: Hypervolemia type: unspecified Qualified Code(s): E87.70 - Fluid overload, unspecified (49) Hypokalemia Code(s): E87.6 - HYPOKALEMIA (50) Hypokalemia Code(s): E87.6 - HYPOKALEMIA (51) Hyponatremia Code(s): E87.1 - HYPO-OSMOLALITY AND HYPONATREMIA (52) Hypothyroidism Code(s): E03.9 - HYPOTHYROIDISM, UNSPECIFIED (53) IBS (irritable bowel syndrome) Code(s): K58.9 - IRRITABLE BOWEL SYNDROME WITHOUT DIARRHEA (54) Intractable abdominal pain Code(s): R10.9 - UNSPECIFIED ABDOMINAL PAIN (55) Jerky body movements Code(s): R25.8 - OTHER ABNORMAL INVOLUNTARY MOVEMENTS (56) Left arm swelling Code(s): M79.89 - OTHER SPECIFIED SOFT TISSUE DISORDERS (57) Left rotator cuff tear Code(s): M75.102 - UNSP ROTATR-CUFF TEAR/RUPTR OF LEFT SHOULDER, NOT TRAUMA (58) Leukocytosis Code(s): D72.829 - ELEVATED WHITE BLOOD CELL COUNT, UNSPECIFIED (59) Metabolic encephalopathy Code(s): G93.41 - METABOLIC ENCEPHALOPATHY (60) Metabolic encephalopathy Code(s): G93.41 - METABOLIC ENCEPHALOPATHY (61) Metabolic syndrome Code(s): E88.81 - METABOLIC SYNDROME (62) 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 (63) 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 (64) Nausea Code(s): R11.0 - NAUSEA (65) Nausea and vomiting Code(s): R11.2 - NAUSEA WITH VOMITING, UNSPECIFIED Qualifiers: Vomiting type: unspecified Vomiting Intractability: intractable Qualified Code(s): R11.2 - Nausea with vomiting, unspecified (66) PNA (pneumonia) Code(s): J18.9 - PNEUMONIA, UNSPECIFIED ORGANISM (67) Pain, eye, right Code(s): H57.11 - OCULAR PAIN, RIGHT EYE (68) Parkinson disease Code(s): G20 - PARKINSON'S DISEASE (69) Pericardial effusion Code(s): I31.3 - PERICARDIAL EFFUSION (NONINFLAMMATORY) (70) Pleural effusion Code(s): J90 - PLEURAL EFFUSION, NOT ELSEWHERE CLASSIFIED (71) Pulmonary HTN Code(s): I27.20 - PULMONARY HYPERTENSION, UNSPECIFIED (72) Sepsis Code(s): A41.9 - SEPSIS, UNSPECIFIED ORGANISM (73) Suspected COVID-19 virus infection Code(s): Z20.828 - CONTACT W AND EXPOSURE TO OTH VIRAL COMMUNICABLE DISEASES (74) Transaminitis Code(s): R74.0 - NONSPEC ELEV OF LEVELS OF TRANSAMNS & LACTIC ACID DEHYDRGNSE (75) Uncontrolled diabetes mellitus Code(s): E11.65 - TYPE 2 DIABETES MELLITUS WITH HYPERGLYCEMIA Qualifiers: Diabetes mellitus type: type 2 (76) Urinary tract infection Code(s): N39.0 - URINARY TRACT INFECTION, SITE NOT SPECIFIED Qualifiers: Urinary tract infection type: site unspecified (77) Vomiting Code(s): R11.10 - VOMITING, UNSPECIFIED Qualifiers: Vomiting type: unspecified Vomiting Intractability: non-intractable Na usea presence: with nausea Qualified Code(s): R11.2 - Nausea with vomiting, unspecified (78) Weakness Code(s): R53.1 - WEAKNESS Assessment/Plan R/o NSTEMI Uncontrolled HTN Acute/chronic diastolic CHF Recent ECHO (11/23/19) notes moderate-large pericardial effusion, with no evidence of pericardial effusion (08/2018 ECHO: small pericardial effusion) UTI acute/chronic renal dysfunction (BUN 28.7/Cr 1.1 on 03/2019; now 49.2/2.9). DM HLD Parkinson's disease (?allergic to levo/carbidopa) dementia ?Hx CVA chronic anemia COVID negative (11/23/19) Repeated ECHO small pericardial effusion.Nl EF Pl: Cont NTG drip IV heparin x 48 hrs ASA 81 mg daily On rosuvastatin; give high-dose daily, or change to atorvastatin 80 mg daily. Serial TNI and EKGs; telemetry. If PO medications are inadequate to control HTN, would start IV labetolol (or, alternatively, IV NTG) Avoid excessive dehydration (on furosemide and torsemide); also problematic continuing ARB with present renal dysfunction. F/u with bluing oven tender. F/u BUN/Cr, electrolytes, daily weight, Is and Os. Low threshold to repeat ECHO to r/o progression/effects of pericardial effusion. W/u of UTI; Antibiotics per ID. cc time spent 35 min
--- NOTE | 2019-12-04 11:19 | PN ---
Progress Note (short form) - Note Progress Note: ID consult dictated imp/reccd 79 yo female admitted from home 12/02, after d/ce home on 12/01 with SOB and hypoxia cxray with bilateral infiltrates/effusons, cardiomegaly c/w CHF, +troponins noted on prior admission she was treated with ertapenem for UTI with ecoli esbl - suprapubic discomfort has resolved also noted to be in chf with pericardial effusion and she received diuresis suspect her current clinical picture is more c/w CHF then with pneumonia, NSTEMI with positive troponins, HTN f/u cultures and legionella urinary antigen zosyn/pancho rfor now echo and diuresis per cardiology maintain contact isolation
--- NOTE | 2019-12-04 11:21 | PN ---
Teaching Attending Note Name of Resident: Nina Leyva ATTENDING PHYSICIAN STATEMENT I saw and evaluated the patient. I reviewed the resident's note and discussed the case with the resident. I agree with the resident's findings and plan as documented. SUBJECTIVE: Pt seen and examined in the ICU. Remains on nitro gtt. Saturating well on nasal cannula. OBJECTIVE: Vital Signs Period Temp Pulse Resp BP Sys/East Pulse Ox Last 24 Hr 98.4 F-99.9 F 63-78 13-22 146-220/50-98 95-100 Intake & Output 12/01/19 12/02/19 12/03/19 12/04/19 23:59 23:59 23:59 23:59 Intake Total 412 Output Total 70 300 Balance -70 112 Weight 72.575 kg 59.194 kg Gen: NAD at rest Heart: RRR Lung: decreased breath sounds at the bases Abd: soft, nontender Ext: no edema CBC, BMP 12/04/19 05:45 12/04/19 05:45 Active Medications Acetaminophen (Tylenol -) 650 mg PO Q4H PRN PRN Reason: PAIN 1-6 Aspirin (Asa -) 81 mg PO DAILY [facility] Last Admin: 12/04/19 09:14 Dose: 81 mg Documented by: Atorvastatin Calcium (Lipitor -) 80 mg PO HS [facility] Chlorhexidine Gluconate (Hibiclens For Decolonization -) 1 applic TP HS [facility] Dicyclomine HCl (Bentyl -) 10 mg PO Q6H PRN PRN Reason: MUSCLE SPASMS Furosemide (Lasix Injection -) 40 mg IVPUSH BID@0600,1400 [facility] Heparin Sodium (Porcine) (Heparin -) 1,000 unit IVPUSH PRN PRN PRN Reason: Heparin Heparin Sodium (Porcine) (Heparin -) 5,000 unit IVPUSH PRN PRN PRN Reason: Heparin Hydralazine HCl (Apresoline -) 50 mg PO TID [facility] Heparin Sodium/Dextrose (Heparin Infusion -) 25,000 units in 500 mls @ 18 mls/hr IVPB TITR [facility]; Protocol Last Admin: 12/04/19 02:44 Dose: 900 units/hr, 18 mls/hr Documented by: Nitroglycerin/Dextrose (Nitroglycerin 25mg/D5w 250ml) 25 mg in 250 mls @ 6 mls/hr IVPB TITR [facility]; Protocol Last Titration: 12/04/19 05:23 Dose: 63 mcg/min, 37.8 mls/hr Documented by: Piperacillin Sod/Tazobactam (Sod 4.5 gm/ Dextrose) 100 mls @ 200 mls/hr IVPB BID [facility]; Protocol Azithromycin (Zithromax 500mg Ivpb (Pre-Docked)) 500 mg in 250 mls @ 250 mls/hr IVPB DAILY [facility] Last Admin: 12/04/19 09:14 Dose: 250 mls/hr Documented by: Piperacillin Sod/Tazobactam (Sod 4.5 gm/ Dextrose) 100 mls @ 200 mls/hr IVPB BID [facility]; Protocol Stop: 12/04/19 22:29 Last Admin: 12/04/19 10:39 Dose: 200 mls/hr Documented by: Labetalol HCl (Normodyne -) 200 mg PO TID [facility] Levothyroxine Sodium (Synthroid -) 25 mcg PO DAILY@0700 [facility] Last Admin: 12/04/19 06:23 Dose: 25 mcg Documented by: Memantine (Namenda -) 5 mg PO BID [facility] Last Admin: 12/04/19 10:39 Dose: 5 mg Documented by: Mirtazapine (Remeron -) 30 mg PO HS [facility] Mupirocin (Bactroban Ointment (For Decolonization) -) 1 applic NS BID [facility] Stop: 12/09/19 09:59 Pancrelipase (Creon Dr 36,000 Units Capsule) 1 cap PO TIDCM [facility] Last Admin: 12/04/19 09:15 Dose: 1 cap Documented by: Pantoprazole Sodium (Protonix Iv) 40 mg IVPUSH DAILY [facility] Last Admin: 12/04/19 09:14 Dose: 40 mg Documented by: Polyethylene Glycol (Miralax (For Daily Use) -) 17 gm PO BID [facility] Last Admin: 12/04/19 10:38 Dose: 17 gm Documented by: Senna (Senna -) 2 tab PO HS PRN PRN Reason: CONSTIPATION ASSESSMENT AND PLAN: Hypertensive Urgency Acute on Chronic Diastolic Heart Failure UTI Pleural Effusions from above Pericardial Effusion +Troponins likely Demand Ischemia HTN Hyperlipidemia DM Hypothyroidism CKD Anemia Parkinsons Dementia - continue antibiotics - f/u cultures - resume PO BP meds - titrate off nitro gtt - O2 to keep SpO2 >90% - echocardiogram - can d/c heparin gtt but will defer to cardiology - lasix if no increase in pericardial effusion - PO as tolerated - DVT prophylaxis - can monitor on telemetry once off nitro gtt
--- NOTE | 2019-12-04 12:18 | ECHO ---
Name: GIA NEWMAN Exam:Adult Echocardiogram Study Date: 12/04/2019 08:34 AM Age: 79 yrs Reason For Study: Pericardial Effusion only Height: 61 in Weight: 130 lb BSA: 1.6 m2 Procedure A complete two-dimensional transthoracic echocardiogram was performed (2D, M-mode, Doppler and color flow Doppler). The study was technically good with many images being of high quality. Left Ventricle The left ventricle is normal in size. Left ventricular systolic function is normal. No regional wall motion abnormalities noted. Right Ventricle The right ventricle is normal size. The right ventricular systolic function is normal. Atria The left atrial size is normal. Right atrial size is normal. Mitral Valve The mitral valve is normal in structure and function. There is no mitral regurgitation noted. Tricuspid Valve The tricuspid valve is normal in structure and function. No tricuspid regurgitation. Aortic Valve The aortic valve is normal in structure and function. No aortic regurgitation is present. Pulmonic Valve The pulmonic valve is not well visualized. Great Vessels The aortic root is normal size. Pericardium/Pleura Small pericardial effusion (<1cm). There are no echocardiographic indications of cardiac tamponade. T here is a pleural effusion present. Interpretation Summary Small pericardial effusion (<1cm) There are no echocardiographic indications of cardiac tamponade. There is a pleural effusion present. When compared to study dated 11/24/19, amount of pericardial effusion is less. Clinical correlation is recommended. Noah Singh MD 12/04/2019 12:17 PM
[2019-12-04] MEDS: MUPIROCIN 2% TOPICAL OINTMENT FOR DECOLONIZATION NS SCH ×2 (12:59→21:59)
--- NOTE | 2019-12-04 13:51 | HOSP ---
Subjective - Review of Symptoms General: No: Chills, Night Sweats, Fatigue, Malaise, Appetite, Other HEENT: No: Head Aches, Visual Changes, Eye Pain, Ear Pain, Dysphasia, Sinus Congestion, Post Nasal Drip, Sore Throat, Other Pulmonary: Yes: Dyspnea Cardiovascular: No: Chest Pain, Palpitations, Orthopnea, Paroxysmal Noc. Dyspnea, Edema, Light Headedness, Other Gastrointestinal: No: Nausea, NOSYM, Vomiting, Abdominal Pain, Diarrhea, Constipation, Melena, Hematochezia, Other Genitourinary: No: Dysuria, NOSYM, Frequency, Incontinence, Hematuria, Retention, Other Musculoskeletal: No: No Symptoms, Back Pain, Crepitus, Decreased ROM, Extremity Pain, Joint Pain, Joint Swelling, Muscle Pain, Muscle Cramps, Muscle Weakness, Other Neurological: No: Weakness, Numbness, Incoordination, Change in speech, Confusion, Seizures, Other Physical Examination Vital Signs: Vital Signs Temperature 98.4 F 12/04/19 10:00 Pulse Rate 61 12/04/19 12:00 Respiratory Rate 16 12/04/19 11:00 Blood Pressure 146/46 L 12/04/19 12:00 O2 Sat by Pulse Oximetry (%) 99 12/04/19 12:00 Constitutional: Yes: No Distress Eyes: Yes: Conjunctiva Clear, EOM Intact HENT: Yes: Atraumatic, Normocephalic Neck: Yes: Supple Cardiovascular: Yes: Regular Rate and Rhythm Respiratory: Yes: On BiPap (at night), On Nasal O2, Rhonchi Gastrointestinal: Yes: Normal Bowel Sounds, Soft Edema: Yes Edema: LLE: 1+, RLE: 1+ Neurological: Yes: Alert, Oriented Psychiatric: Yes: Alert, Oriented Labs: CBC, BMP 12/04/19 05:45 12/04/19 05:45 Hospitalist Encounter Assessment: _Patient is a 79 year old female with a significant PMHx of DM, diastolic CHF (ECHO 11/23/2019: moderate-large pericardial effusion without evidence of card iac tamponade), HTN, HLD, Parkinson's disease, & dementia. S/p recent admission to [facility] for UTI/CHF (12/01), who presents to the ED with SOB. Found to have increased BL infiltrates on CXR. Given lasixs in ED and on floors. Concern for UTI, cultures pending. Patient started on Vanc and zoysn. Patient slso had hypertension and trops and there was concern for NSTEMI. Cardiology consulted. Patient was started on nitro and heparin drip. Regular home blood pressure meds given in the AM. Patient's BP stabilized, nitro drip stopped. Repeat ECHO showed decreased pericardial effusion, lasixs restarted. Patient is feeling better. Heparin drip to continue for a total of 48 hours. Follow up cultures. Patient is now stable for transfer from ICU to tele. Visit type - Medication Review Med list reviewed for High Risk Meds patients 65 and older: Yes - Emergency Visit Emergency Visit: Yes ED Registration Date: 12/03/19 Care time: The patient presented to the Emergency Department on the above date and was hospitalized for further evaluation of their emergent condition. - New Patient This patient is new to me today: Yes Date on this admission: 12/04/19 - Critical Care Critical Care patient: Yes Total Critical Care Time (in minutes): 37 Critical Care Statement: The care of this patient involved high complexity decision making to prevent further life threatening deterioration of the patient's condition and/or to evaluate & treat vital organ system(s) failure or risk of failure.
[2019-12-04] MEDS ORDERED: LABETALOL HCL 200 MG TABLET (FP) PO SCH ×2 (14:00)
[2019-12-04] MEDS ORDERED: hydrALAZINE HCL 50 MG TABLET (FP) PO SCH ×2 (14:00)
[2019-12-04] MEDS: hydrALAZINE HCL 50 MG TABLET (FP) PO SCH ×3 (14:34→22:42)
[2019-12-04] MEDS: FUROSEMIDE 40 MG/4 ML INJECTABLE VIAL IVPUSH SCH (14:34)
[2019-12-04] MEDS: LABETALOL HCL 200 MG TABLET (FP) PO SCH ×3 (14:34→22:43)
--- NOTE | 2019-12-04 16:05 | CONSULT ---
Consult Consult Specialty:: Nephrology Reason for Consultation:: JASPER - History of Present Illness Chief Complaint: shortness of breath History of Present Illness: Pt is a 79 year old female with pmhx of dementia. ckd, htn, chf, d, pericardial effusion who was discharged and brought back to hospital for shortness of breath. She was sent home on Wednesday. She had increased shortness of breath and came back to the hospital. She also had a pericardial effusion on her last hospitalization. 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: Dementia, Peripheral Neuropathy, Parkinson's Cardio/Vascular: Yes: CHF (diastolic), HTN, Hyperlipdemia Gastrointestinal: Yes: Diverticulosis Psych: Yes: Anxiety Musculoskeletal: Yes: Osteoarthritis Endocrine: Yes: Diabetes Mellitus - Past Surgical History Past Surgical History: Yes: Appendectomy, Cholecystectomy, - Alcohol/Substance Use Hx Alcohol Use: No History of Substance Use: reports: None (unknown) - Smoking History Smoking history: Unknown if ever smoked Have you smoked in the past 12 months: No Aproximately how many cigarettes per day: 0 - Social History Usual Living Arrangement: Alone 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 (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 and 5 hours x2 days) History of Recent Travel: No Home Medications - Allergies Allergies/Adverse Reactions: Allergies Allergy/AdvReac Type Severity Reaction Status Date / Time carbidopa [From Sinemet] AdvReac Verified 11/23/19 15:47 levodopa [From Sinemet] AdvReac Verified 11/23/19 15:47 - Home Medications Home Medications: Ambulatory Orders Levothyroxine [Synthroid -] 25 mcg PO DAILY 04/24/19 Aspirin 81 mg PO DAILY 04/25/19 Atorvastatin Ca [Lipitor] 20 mg PO HS 04/25/19 Bupropion HCl [Wellbutrin -] 150 mg PO DAILY 04/25/19 Hydralazine HCl 25 mg PO TID 04/25/19 Labetalol HCl [Normodyne -] 400 mg PO TID 04/25/19 Lipase/Protease/Amylase [Elaine Sweeney 36,000 Units Capsule] 1 each PO TID 04/25/19 Mirtazapine 30 mg PO HS 04/25/19 Potassium Chloride 20 meq PO DAILY 04/25/19 Diclofenac Sodium 75 mg PO DAILY 11/23/19 Memantine HCl/Donepezil HCl [Namzaric 14 mg-10 mg Capsule] 1 cap PO DAILY 11/23/19 traZODone HCL [Trazodone HCl] 50 mg PO HS 11/23/19 Acetaminophen [Tylenol .Regular Strength -] 650 mg PO Q4H PRN tablet 12/02/19 Albuterol Sulfate Inhaler - [Ventolin HFA Inhaler -] 2 puff IH Q6H PRN inhaler 12/02/19 Dicyclomine HCl [Bentyl -] 10 mg PO Q6H PRN capsule 12/02/19 Dronabinol [Marinol -] 2.5 mg PO DAILY capsule 12/02/19 Iron Polysaccharides [Niferex-150 -] 150 mg PO DAILY #30 capsule 12/02/19 Labetalol HCl [Normodyne -] 200 mg PO TID tablet 12/02/19 Mag Hydrox/Al Hydrox/Simeth [Mylanta Oral Suspension -] 30 ml PO Q6H PRN #1 bot 12/02/19 Metoclopramide HCl [Reglan -] 10 mg PO TIDAC #90 tablet 12/02/19 Multivitamins [Multivit ([facility] Formulary)] 1 tab PO DAILY #30 tab 12/02/19 Pantoprazole Sodium [Protonix -] 20 mg PO DAILY #30 tablet.ec 12/02/19 Polyethylene Glycol 3350 [Miralax 119 gm Btl -] 17 gm PO BID bottle 12/02/19 Sennosides [Senna -] 2 tab PO HS #60 tablet 12/02/19 Torsemide [Demadex -] 40 mg PO DAILY #60 tablet 12/02/19 hydrALAZINE HCL [Apresoline -] 50 mg PO TID tablet 12/02/19 Nifedipine ER [Procardia XL -] 60 mg PO BID 12/04/19 Olmesartan Medoxomil [Benicar (Nf)] 40 mg PO DAILY 12/04/19 Review of Systems - Review of Systems Eyes: reports: No Symptoms HENT: reports: No Symptoms Cardiovascular: reports: Edema, Shortness of Breath Respiratory: reports: SOB, SOB on Exertion Gastrointestinal: reports: No Symptoms Genitourinary: reports: No Symptoms Musculoskeletal: reports: No Symptoms Integumentary: reports: No Symptoms Neurological: reports: No Symptoms Endocrine: reports: No Symptoms Hematology/Lymphatic: reports: No Symptoms Physical Exam Vital Signs: Vital Signs Temperature 98.8 F 12/04/19 14:00 Pulse Rate 60 12/04/19 14:00 Respiratory Rate 16 12/04/19 11:00 Blood Pressure 134/42 L 12/04/19 14:00 O2 Sat by Pulse Oximetry (%) 97 12/04/19 15:42 Constitutional: Yes: Calm Eyes: Yes: Conjunctiva Clear HENT: Yes: Atraumatic Cardiovascular: Yes: S1, S2 Respiratory: Yes: On Nasal O2 Gastrointestinal: Yes: Soft Renal/: Yes: WNL Musculoskeletal: Yes: WNL Edema: Yes Edema: LLE: 1+, RLE: 1+ Neurological: Yes: Oriented Psychiatric: Yes: Oriented Labs: CBC, BMP 12/04/19 05:45 12/04/19 05:45 Imaging - Results Chest X-ray: Report Reviewed Assessment/Plan Current Medications Generic Name Dose Route Start Last Admin Trade Name Freq PRN Reason Stop Dose Admin Acetaminophen 650 mg 12/04/19 08:10 Tylenol - PO Q4H PRN PAIN 1-6 Aspirin 81 mg 12/04/19 10:00 12/04/19 09:14 Asa - PO 81 mg DAILY [facility] Administration Atorvastatin Calcium 80 mg 12/04/19 22:00 Lipitor - PO HS [facility] Chlorhexidine Gluconate 1 applic 12/04/19 22:00 Hibiclens For Decolonization - TP HS [facility] Dicyclomine HCl 10 mg 12/04/19 02:42 Bentyl - PO Q6H PRN MUSCLE SPASMS Furosemide 40 mg 12/04/19 14:00 12/04/19 14:34 Lasix Injection - IVPUSH 40 mg BID@0600,1400 [facility] Administration Heparin Sodium (Porcine) 1,000 unit 12/04/19 01:57 Heparin - IVPUSH PRN PRN Heparin Heparin Sodium (Porcine) 5,000 unit 12/04/19 01:57 Heparin - IVPUSH PRN PRN Heparin Hydralazine HCl 50 mg 12/04/19 14:00 12/04/19 14:34 Apresoline - PO 50 mg TID [facility] Administration Heparin Sodium/Dextrose 25,000 units in 500 mls @ 18 mls/hr 12/04/19 02:00 12/04/19 02:44 Heparin Infusion - IVPB 900 units/hr TITR [facility] 18 mls/hr Administration Protocol 900 UNITS/HR Azithromycin 500 mg in 250 mls @ 250 mls/hr 12/04/19 10:00 12/04/19 09:14 Zithromax 500mg Ivpb (Pre-Docked) IVPB 250 mls/hr DAILY [facility] Administration Piperacillin Sod/Tazobactam 50 mls @ 100 mls/hr 12/04/19 18:00 Sod 2.25 gm/ Dextrose IVPB Q8H-IV [facility] Protocol Labetalol HCl 200 mg 12/04/19 14:00 12/04/19 14:34 Normodyne - PO 200 mg TID [facility] Administration Levothyroxine Sodium 25 mcg 12/04/19 07:00 12/04/19 06:23 Synthroid - PO 25 mcg DAILY@0700 [facility] Administration Memantine 5 mg 12/04/19 10:00 12/04/19 10:39 Namenda - PO 5 mg BID [facility] Administration Mirtazapine 30 mg 12/04/19 22:00 Remeron - PO HS [facility] Mupirocin 1 applic 12/04/19 10:00 12/04/19 12:59 Bactroban Ointment (For Decolonization) - NS 12/09/19 09:59 1 applic BID [facility] Administration Pancrelipase 1 cap 12/04/19 08:00 12/04/19 12:[address] 36,000 Units Capsule PO 1 cap TIDCM [facility] Administration Pantoprazole Sodium 40 mg 12/04/19 10:00 12/04/19 09:14 Protonix Iv IVPUSH 40 mg DAILY [facility] Administration Polyethylene Glycol 17 gm 12/04/19 10:00 12/04/19 10:38 Miralax (For Daily Use) - PO 17 gm BID [facility] Administration Senna 2 tab 12/04/19 05:47 Senna - PO HS PRN CONSTIPATION Impression 1. JASPER 2. CKD 3. HLD 4. diverticulosis 5. HTN 6. DM 7. proteinuria 8. hypoalbuminemia 9. UTI 10. pleural effusion 11. chf 12. pericardial effusion without tamponade 13. fluid overload Impression - cont with IV lasix - repeat echo shows improvement in pericardial effusion - monitor volume status - repeat cxr in am - cont to monitor renal function - arb on hold - discussed with ICU team - reviewed chart
[2019-12-04] MEDS ORDERED: DEXTROSE 5%-WATER - 50 ML IVPB ONE (17:34)
[2019-12-04] MEDS ORDERED: PIPERACILLIN/TAZOBACTAM 2.25 GM VIAL IVPB ONE (17:34)
[2019-12-04] MEDS: PIPERACILLIN/TAZOB 2.25 GM 2.25 GM in DEXTROSE 5%-WATER - 50 ML IVPB SCH (17:40)
[2019-12-04] MEDS: ATORVASTATIN CA 80 MG TABLET (FP) PO SCH ×2 (21:58→22:42)
[2019-12-04] MEDS: MIRTAZAPINE 15 MG TABLET (FP) PO SCH ×2 (21:58→22:43)
[2019-12-04] MEDS: CHLORHEXIDINE GLUCONATE 4% CLEANSER FOR DECOLONIZATION TP SCH (21:59)
[2019-12-05] MEDS ORDERED: PT OWN MED DRAWER 7, Y5N ONE ×4 (00:02→11:21)
[2019-12-05] MEDS: DICYCLOMINE HCL 10 MG CAPSULE PO PRN ×4 (00:15→21:03)
[2019-12-05] MEDS: LABETALOL HCL 200 MG TABLET (FP) PO SCH ×4 (00:15→21:02)
[2019-12-05] MEDS: hydrALAZINE HCL 50 MG TABLET (FP) PO SCH ×4 (00:15→21:02)
[2019-12-05] MEDS ORDERED: PIPERACILLIN/TAZOBACTAM 2.25 GM VIAL IVPB ONE ×3 (00:59→18:05)
[2019-12-05] MEDS ORDERED: DEXTROSE 5%-WATER - 50 ML IVPB ONE ×3 (00:59→18:05)
[2019-12-05] MEDS: PIPERACILLIN/TAZOB 2.25 GM 2.25 GM in DEXTROSE 5%-WATER - 50 ML IVPB SCH ×3 (01:21→18:12)
[2019-12-05] MEDS: HEPARIN INFUSION - 25,000 UNITS/500 ML INFUS.BAG IVPB SCH (01:21)
[2019-12-05] MEDS ORDERED: LABETALOL HCL 5 MG/1 ML (100MG/20 ML VIAL) IVPUSH ONE (04:24)
[2019-12-05] MEDS: FUROSEMIDE 40 MG/4 ML INJECTABLE VIAL IVPUSH SCH ×2 (05:16→13:25)
[2019-12-05 06:23] LABS: BASO % 0.4 % (0-2.0); EOS % 4.8 % (0-4.5); HEMATOCRIT 28.1 % (32.4-45.2); HEMOGLOBIN 9.4 GM/dL (10.7-15.3); LYMPH % 5.9 % (8-40); MCH 27.2 pg (25.7-33.7); MCHC 33.3 g/dl (32.0-36.0); MEAN CELL VOLUME 81.9 fl (80-96); MEAN PLT VOLUME 7.6 fl (7.5-11.1); MONO % 12.5 % (3.8-10.2); NEUT % 76.4 % (42.8-82.8); PLATELET COUNT 311 K/MM3 (134-434); RBC 3.43 M/mm3 (3.60-5.2); WHITE BLOOD COUNT 14.7 K/mm3 (4.0-10.0)
[2019-12-05] MEDS: LEVOTHYROXINE NA 25 MCG TABLET (FP) PO SCH (06:29)
[2019-12-05 06:30] LABS: ALBUMIN 2.4 g/dl (3.4-5.0); BILIRUBIN,TOTAL 0.6 mg/dL (0.2-1); CALCIUM 8.1 mg/dL (8.5-10.1); CREATININE 2.4 mg/dL (0.55-1.3); PHOSPHOROUS 2.8 mg/dL (2.5-4.9); POTASSIUM 3.4 mmol/L (3.5-5.1); TOT PROT 5.3 g/dl (6.4-8.2)
--- NOTE | 2019-12-05 08:05 | CON.GI ---
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: Dementia, Peripheral Neuropathy, Parkinson's Cardio/Vascular: Yes: CHF (diastolic), HTN, Hyperlipdemia Gastrointestinal: Yes: Diverticulosis Psych: Yes: Anxiety Musculoskeletal: Yes: Osteoarthritis Endocrine: Yes: Diabetes Mellitus - Past Surgical History Past Surgical History: Yes: Appendectomy, Cholecystectomy, - Alcohol/Substance Use Hx Alcohol Use: No History of Substance Use: reports: None (unknown) - Smoking History Smoking history: Unknown if ever smoked Have you smoked in the past 12 months: No Aproximately how many cigarettes per day: 0 - Social History Usual Living Arrangement: Alone 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 (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 There were no reports of nausea, vomiting, melena and rectal bleeding. Her last colonoscopy was in 2018, which revealed diverticulosis. <Lee Small - Last Filed: 12/05/19 15:11> Home Medications <Madhu Ibanez - Last Filed: 12/05/19 08:04> <Lee Small - Last Filed: 12/05/19 15:11> - Allergies Allergies/Adverse Reactions: Allergies Allergy/AdvReac Type Severity Reaction Status Date / Time carbidopa [From Sinemet] AdvReac Verified 11/23/19 15:47 levodopa [From Sinemet] AdvReac Verified 11/23/19 15:47 - Home Medications Home Medications: Ambulatory Orders Levothyroxine [Synthroid -] 25 mcg PO DAILY 04/24/19 Aspirin 81 mg PO DAILY 04/25/19 Atorvastatin Ca [Lipitor] 20 mg PO HS 04/25/19 Bupropion HCl [Wellbutrin -] 150 mg PO DAILY 04/25/19 Hydralazine HCl 25 mg PO TID 04/25/19 Labetalol HCl [Normodyne -] 400 mg PO TID 04/25/19 Lipase/Protease/Amylase [Elaine Sweeney 36,000 Units Capsule] 1 each PO TID 04/25/19 Mirtazapine 30 mg PO HS 04/25/19 Potassium Chloride 20 meq PO DAILY 04/25/19 Diclofenac Sodium 75 mg PO DAILY 11/23/19 Memantine HCl/Donepezil HCl [Namzaric 14 mg-10 mg Capsule] 1 cap PO DAILY 0 11/23/19 traZODone HCL [Trazodone HCl] 50 mg PO HS 11/23/19 Acetaminophen [Tylenol .Regular Strength -] 650 mg PO Q4H PRN tablet 12/02/19 Albuterol Sulfate Inhaler - [Ventolin HFA Inhaler -] 2 puff IH Q6H PRN inhaler 12/02/19 Dicyclomine HCl [Bentyl -] 10 mg PO Q6H PRN capsule 12/02/19 Dronabinol [Marinol -] 2.5 mg PO DAILY capsule 12/02/19 Iron Polysaccharides [Niferex-150 -] 150 mg PO DAILY #30 capsule 12/02/19 Labetalol HCl [Normodyne -] 200 mg PO TID tablet 12/02/19 Mag Hydrox/Al Hydrox/Simeth [Mylanta Oral Suspension -] 30 ml PO Q6H PRN #1 bot 12/02/19 Metoclopramide HCl [Reglan -] 10 mg PO TIDAC #90 tablet 12/02/19 Multivitamins [Multivit ([facility] Formulary)] 1 tab PO DAILY #30 tab 12/02/19 Pantoprazole Sodium [Protonix -] 20 mg PO DAILY #30 tablet.ec 12/02/19 Polyethylene Glycol 3350 [Miralax 119 gm Btl -] 17 gm PO BID bottle 12/02/19 Sennosides [Senna -] 2 tab PO HS #60 tablet 12/02/19 Torsemide [Demadex -] 40 mg PO DAILY #60 tablet 12/02/19 hydrALAZINE HCL [Apresoline -] 50 mg PO TID tablet 12/02/19 Nifedipine ER [Procardia XL -] 60 mg PO BID 12/04/19 Olmesartan Medoxomil [Benicar (Nf)] 40 mg PO DAILY 12/04/19 Physical Exam-GI Vital Signs: Vital Signs Temperature 99 F 12/05/19 02:00 Pulse Rate 64 12/05/19 04:48 Respiratory Rate 14 12/05/19 04:48 Blood Pressure 183/53 H 12/05/19 04:48 O2 Sat by Pulse Oximetry (%) 100 12/05/19 04:48 Labs: CBC, [facility] 12/05/19 05:40 12/05/19 06:00 <Madhu Ibanez - Last Filed: 12/05/19 08:04> Vital Signs: Vital Signs Temperature 98.1 F 12/05/19 10:00 Pulse Rate 60 12/05/19 12:00 Respiratory Rate 18 12/05/19 12:00 Blood Pressure 139/38 L 12/05/19 12:00 O2 Sat by Pulse Oximetry (%) 98 12/05/19 12:00 Constitutional: Yes: No Distress Eyes: No: Sclera Icterus HENT: Yes: Atraumatic Neck: Yes: Supple Cardiovascular: Yes: Regular Rate and Rhythm Respiratory: Yes: Diminished ...Palpate: Yes: Soft, Tenderness (diffuse-mild). No: Firm/Rigid, Guarding, Hepatomegaly, Pulsatile Mass, Splenomegaly ...Percussion: Yes: Tympanitic Labs: CBC, [facility] 12/05/19 05:40 12/05/19 06:00 CBC,CMP WBC 14.7 K/mm3 (4.0-10.0) H 12/05/19 05:40 RBC 3.43 M/mm3 (3.60-5.2) L 12/05/19 05:40 Hgb 9.4 GM/dL (10.7-15.3) L 12/05/19 05:40 Hct 28.1 % (32.4-45.2) L D 12/05/19 05:40 MCV 81.9 fl (80-96) 12/05/19 05:40 MCH 27.2 pg (25.7-33.7) 12/05/19 05:40 MCHC 33.3 g/dl (32.0-36.0) 12/05/19 05:40 RDW 17.0 % (11.6-15.6) H 12/05/19 05:40 Plt Count 311 K/MM3 (134-434) 12/05/19 05:40 MPV 7.6 fl (7.5-11.1) 12/05/19 05:40 Absolute Neuts (auto) 11.2 K/mm3 (1.5-8.0) H 12/05/19 05:40 Neutrophils % 76.4 % (42.8-82.8) 12/05/19 05:40 Lymphocytes % 5.9 % (8-40) L 12/05/19 05:40 Monocytes % 12.5 % (3.8-10.2) H 12/05/19 05:40 Eosinophils % 4.8 % (0-4.5) H D 12/05/19 05:40 Basophils % 0.4 % (0-2.0) 12/05/19 05:40 Nucleated RBC % 0 % (0-0) 12/05/19 05:40 Sodium 140 mmol/L (136-145) 12/05/19 06:00 Potassium 3.4 mmol/L (3.5-5.1) L 12/05/19 06:00 Chloride 106 mmol/L (98-107) 12/05/19 06:00 Carbon Dioxide 27 mmol/L (21-32) 12/05/19 06:00 Anion Gap 7 MMOL/L (8-16) L 12/05/19 06:00 BUN 45.0 mg/dL (7-18) H 12/05/19 06:00 Creatinine 2.4 mg/dL (0.55-1.3) H 12/05/19 06:00 Est GFR (CKD-EPI)AfAm 21.84 12/05/19 06:00 Est GFR (CKD-EPI)NonAf 18.84 12/05/19 06:00 POC Glucometer 187 UNITS (80-120) 12/04/19 21:54 Random Glucose 137 mg/dL (74-106) H 12/05/19 06:00 Lactic Acid 1.3 mmol/L (0.4-2.0) 12/03/19 21:45 Calcium 8.1 mg/dL (8.5-10.1) L 12/05/19 06:00 Phosphorus 2.8 mg/dL (2.5-4.9) 12/05/19 06:00 Magnesium 2.0 mg/dL (1.8-2.4) 12/05/19 06:00 Total Bilirubin 0.6 mg/dL (0.2-1) 12/05/19 06:00 AST 55 U/L (15-37) H 12/05/19 06:00 ALT 34 U/L (13-61) 12/05/19 06:00 Alkaline Phosphatase 111 U/L (45-117) 12/05/19 06:00 Creatine Kinase 95 U/L (26-192) 12/03/19 21:45 Troponin I 1.09 ng/ml (0.00-0.05) H* 12/04/19 05:45 B-Natriuretic Peptide > 62728.0 pg/ml (5-450) H 12/03/19 21:45 Total Protein 5.3 g/dl (6.4-8.2) L 12/05/19 06:00 Albumin 2.4 g/dl (3.4-5.0) L 12/05/19 06:00 <Lee Small - Last Filed: 12/05/19 15:11> Problem List - Problems (1) Abdominal pain Assessment/Plan: r/o secondary to ischemia,SIBO, disveticular spasm R> FUA plain CT to r/o ischemia as patient will not tolerate po contrast keep hydrated advance diet as tolerated maintain on PPI Code(s): R10.9 - UNSPECIFIED ABDOMINAL PAIN Qualifiers: Abdominal location: generalized Qualified Code(s): R10.84 - Generalized abdominal pain <Lee Small - Last Filed: 12/05/19 15:11>
[2019-12-05] MEDS: PANTOPRAZOLE SODIUM 40 MG VIAL IVPUSH SCH (09:05)
[2019-12-05] MEDS: AZITHROMYCIN IVPB 500 MG/250 ML BAG IVPB SCH (09:05)
[2019-12-05] MEDS: ASPIRIN 81 MG CHEWABLE TABLETS PO SCH (09:05)
[2019-12-05] MEDS: MUPIROCIN 2% TOPICAL OINTMENT FOR DECOLONIZATION NS SCH ×2 (09:15→21:02)
[2019-12-05] MEDS: POLYETHYLENE GLYCOL 3350 119 GM BTL PO SCH ×2 (09:15→21:02)
[2019-12-05] MEDS: MEMANTINE HCL 5 MG TABLET (UD) PO SCH ×2 (09:16→21:01)
[2019-12-05] MEDS: LIPASE/PROTEASE/AMYLASE 36,000 UNIT CAPSULE PO SCH ×2 (09:17→13:20)
--- NOTE | 2019-12-05 10:04 | PN ---
Progress Note, Physician Chief Complaint: Hypoxia Shortness of breath CHF Pericardial effusion Elevated troponins Anemia Pneumonia History of Present Illness: 79 year old female, discharged from recent hospitalization on 12/02/19 for UTI and moderate pericardial effusion, returned 24 hours later with SOB, hypoxia, BIBEMS admitted with SOB, hypoxia, CHF, elevated troponin. Last echo + moderate pericardia effusion w/o any evidence of cardiac tamponade, repeat echo 12/04/19 showed small pericardial effusion, CXR + pleural effusion + possible bibasilar infiltrates. Started on IV azithro+ Zosyn, evaluated by ID. At home she is on Hydralazine 50 mg po TID + Labetalol 200 mg po TID+ Nifedapine 120 mg po daily + Torsemide 40 mg po daily. Upon admission, pt was started on IV furosemide 40 mg BID + Hydralazine+ labeta lol -same dose. - Current Medication List Current Medications: Active Medications Acetaminophen (Tylenol -) 650 mg PO Q4H PRN PRN Reason: PAIN 1-6 Aspirin (Asa -) 81 mg PO DAILY [facility] Last Admin: 12/05/19 09:05 Dose: 81 mg Documented by: Atorvastatin Calcium (Lipitor -) 80 mg PO [facility] Last Admin: 12/04/19 22:42 Dose: Not Given Documented by: Chlorhexidine Gluconate (Hibiclens For Decolonization -) 1 applic TP [facility] Last Admin: 12/04/19 21:59 Dose: 1 applic Documented by: Dicyclomine HCl (Bentyl -) 10 mg PO Q6H PRN PRN Reason: MUSCLE SPASMS Last Admin: 12/05/19 06:02 Dose: 10 mg Documented by: Furosemide (Lasix Injection -) 40 mg IVPUSH BID@0600,1400 [facility] Last Admin: 12/05/19 05:16 Dose: 40 mg Documented by: Heparin Sodium (Porcine) (Heparin -) 1,000 unit IVPUSH PRN PRN PRN Reason: Heparin Heparin Sodium (Porcine) (Heparin -) 5,000 unit IVPUSH PRN PRN PRN Reason: Heparin Hydralazine HCl (Apresoline -) 50 mg PO TID [facility] Last Admin: 12/05/19 06:29 Dose: 50 mg Documented by: Heparin Sodium/Dextrose (Heparin Infusion -) 25,000 units in 500 mls @ 18 mls/hr IVPB TITR [facility]; Protocol Last Titration: 12/05/19 06:47 Dose: 850 units/hr, 17 mls/hr Documented by: Azithromycin (Zithromax 500mg Ivpb (Pre-Docked)) 500 mg in 250 mls @ 250 mls/hr IVPB DAILY [facility] Last Admin: 12/05/19 09:05 Dose: 250 mls/hr Documented by: Piperacillin Sod/Tazobactam (Sod 2.25 gm/ Dextrose) 50 mls @ 100 mls/hr IVPB Q8H-IV [facility]; Protocol Last Admin: 12/05/19 09:11 Dose: 100 mls/hr Documented by: Labetalol HCl (Normodyne -) 200 mg PO TID [facility] Last Admin: 12/05/19 06:29 Dose: 200 mg Documented by: Levothyroxine Sodium (Synthroid -) 25 mcg PO DAILY@0700 [facility] Last Admin: 12/05/19 06:29 Dose: 25 mcg Documented by: Memantine (Namenda -) 5 mg PO BID [facility] Last Admin: 12/05/19 09:16 Dose: 5 mg Documented by: Mirtazapine (Remeron -) 30 mg PO HS [facility] Last Admin: 12/04/19 22:43 Dose: Not Given Documented by: Mupirocin (Bactroban Ointment (For Decolonization) -) 1 applic NS BID [facility] Stop: 12/09/19 09:59 Last Admin: 12/05/19 09:15 Dose: 1 applic Documented by: Pancrelipase (Creon Dr 36,000 Units Capsule) 1 cap PO TIDCM [facility] Last Admin: 12/05/19 09:17 Dose: Not Given Documented by: Pantoprazole Sodium (Protonix Iv) 40 mg IVPUSH DAILY [facility] Last Admin: 12/05/19 09:05 Dose: 40 mg Documented by: Polyethylene Glycol (Miralax (For Daily Use) -) 17 gm PO BID [facility] Last Admin: 12/05/19 09:15 Dose: 17 gm Documented by: Potassium Chloride (K-Dur -) 40 meq PO DAILY [facility] Senna (Senna -) 2 tab PO HS PRN PRN Reason: CONSTIPATION - Objective Vital Signs: Vital Signs Temperature 99 F 12/05/19 02:00 Pulse Rate 66 12/05/19 08:13 Respiratory Rate 16 12/05/19 08:00 Blood Pressure 184/51 H 12/05/19 08:00 O2 Sat by Pulse Oximetry (%) 100 12/05/19 08:14 Constitutional: Yes: Well Nourished, No Distress, Calm Cardiovascular: Yes: Regular Rate and Rhythm Respiratory: Yes: Regular, Rales (BLL) Gastrointestinal: Yes: Normal Bowel Sounds, Soft Genitourinary: Yes: Schultz Present Musculoskeletal: Yes: Muscle Weakness Extremities: Yes: WNL Edema: No Peripheral Pulses WNL: Yes Neurological: Yes: Alert, Oriented, Other (forgetful) Psychiatric: Yes: Alert, Oriented Labs: CBC, BMP 12/05/19 05:40 12/05/19 06:00 Problem List - Problems (1) SOB (shortness of breath) Assessment/Plan: -2/2 to acute CHF vs Pneumonia -Nasal O2 to keep SpO2>90% -IV diuresis -Pulmonary consult -COVID 19 PCR negative 11/23/19 Problems reviewed: Yes Code(s): R06.02 - SHORTNESS OF BREATH (2) Acute on chronic diastolic heart failure Assessment/Plan: -Cardiology consult -IV Furosemide 40 mg BID -Continue labetalol 200 mg PO TID -Continue hydralazine 50 mg po TID -Restart Nifedipine 120 mg Problems reviewed: Yes Code(s): I50.33 - ACUTE ON CHRONIC DIASTOLIC (CONGESTIVE) HEART FAILURE (3) Elevated troponin Assessment/Plan: -Likely demand ischemia Problems reviewed: Yes Code(s): R74.8 - ABNORMAL LEVELS OF OTHER SERUM ENZYMES (4) Acute on chronic renal failure Assessment/Plan: -Nephrology consult -Monitor Cr Trend -Baseline Cr at 1.8-2.2 Problems reviewed: Yes Code(s): N17.9 - ACUTE KIDNEY FAILURE, UNSPECIFIED; N18.9 - CHRONIC KIDNEY DISEASE, UNSPECIFIED (5) Anemia Assessment/Plan: -Chronic -OLINDA -Continue iron polysaccharide 150 mg po daily -Monitor H/h Problems reviewed: Yes Code(s): D64.9 - ANEMIA, UNSPECIFIED (6) Dementia Assessment/Plan: -Continue Memantine + donepezil Problems reviewed: Yes Code(s): F03.90 - UNSPECIFIED DEMENTIA WITHOUT BEHAVIORAL DISTURBANCE (7) HTN (hypertension) Assessment/Plan: -As above Problems reviewed: Yes Code(s): I10 - ESSENTIAL (PRIMARY) HYPERTENSION (8) Hypokalemia Assessment/Plan: -KCL 40 meq po daily -monitor trend Problems reviewed: Yes Code(s): E87.6 - HYPOKALEMIA (9) Abdominal pain Assessment/Plan: -CTAP from 11/23/19 was unremarkable -GI consult -Dicyclomine PRN -Reglan TID AC -PPI Problems reviewed: Yes Code(s): R10.9 - UNSPECIFIED ABDOMINAL PAIN Qualifiers: Abdominal location: generalized Qualified Code(s): R10.84 - Generalized abdominal pain Assessment/Plan See problem list
[2019-12-05] MEDS: POTASSIUM CHLORIDE TABS 20 MEQ TABLET.ER (FP) PO SCH (10:24)
[2019-12-05] MEDS: NIFEdipine E.R 60 MG TABLET PO SCH (10:24)
--- NOTE | 2019-12-05 10:55 | PN ---
Progress Note (short form) - Note Progress Note: PULMONARY Denies shortness of breath, chest pain. Reports lower abdominal pain. +BM. Vital Signs Period Temp Pulse Resp BP Sys/East Pulse Ox Last 24 Hr 98.8 F-99.3 F 60-66 13-18 132-190/42-56 97-100 Intake & Output 12/02/19 12/03/19 12/04/19 12/05/19 23:59 23:59 23:59 23:59 Intake Total 1718 386 Output Total 70 550 300 Balance -70 1168 86 Weight 72.575 kg 59.194 kg 59.103 kg Gen: NAD at rest Heart: RRR Lung: decreased breath sounds at the bases Abd: soft, mild TTP LLQ, no rebound Ext: no edema CBC, BMP 12/05/19 05:40 12/05/19 06:00 Active Medications Acetaminophen (Tylenol -) 650 mg PO Q4H PRN PRN Reason: PAIN 1-6 Aspirin (Asa -) 81 mg PO DAILY [facility] Last Admin: 12/05/19 09:05 Dose: 81 mg Documented by: Atorvastatin Calcium (Lipitor -) 80 mg PO [facility] Last Admin: 12/04/19 22:42 Dose: Not Given Documented by: Chlorhexidine Gluconate (Hibiclens For Decolonization -) 1 applic TP [facility] Last Admin: 12/04/19 21:59 Dose: 1 applic Documented by: Dicyclomine HCl (Bentyl -) 10 mg PO Q6H PRN PRN Reason: MUSCLE SPASMS Last Admin: 12/05/19 06:02 Dose: 10 mg Documented by: Donepezil HCl (Aricept -) 10 mg PO DAILY [facility] Dronabinol (Marinol -) 2.5 mg PO 1730 [facility] Furosemide (Lasix Injection -) 40 mg IVPUSH BID@0600,1400 [facility] Last Admin: 12/05/19 05:16 Dose: 40 mg Documented by: Heparin Sodium (Porcine) (Heparin -) 1,000 unit IVPUSH PRN PRN PRN Reason: Heparin Heparin Sodium (Porcine) (Heparin -) 5,000 unit IVPUSH PRN PRN PRN Reason: Heparin Hydralazine HCl (Apresoline -) 50 mg PO TID [facility] Last Admin: 12/05/19 06:29 Dose: 50 mg Documented by: Heparin Sodium/Dextrose (Heparin Infusion -) 25,000 units in 500 mls @ 18 mls/hr IVPB TITR [facility]; Protocol Last Titration: 12/05/19 06:47 Dose: 850 units/hr, 17 mls/hr Documented by: Azithromycin (Zithromax 500mg Ivpb (Pre-Docked)) 500 mg in 250 mls @ 250 mls/hr IVPB DAILY [facility] Last Admin: 12/05/19 09:05 Dose: 250 mls/hr Documented by: Piperacillin Sod/Tazobactam (Sod 2.25 gm/ Dextrose) 50 mls @ 100 mls/hr IVPB Q8H-IV [facility]; Protocol Last Admin: 12/05/19 09:11 Dose: 100 mls/hr Documented by: Labetalol HCl (Normodyne -) 200 mg PO TID [facility] Last Admin: 12/05/19 06:29 Dose: 200 mg Documented by: Levothyroxine Sodium (Synthroid -) 25 mcg PO DAILY@0700 [facility] Last Admin: 12/05/19 06:29 Dose: 25 mcg Documented by: Memantine (Namenda -) 5 mg PO BID [facility] Last Admin: 12/05/19 09:16 Dose: 5 mg Documented by: Metoclopramide HCl (Reglan -) 10 mg PO TIDAC [facility] Mirtazapine (Remeron -) 30 mg PO HS [facility] Last Admin: 12/04/19 22:43 Dose: Not Given Documented by: Multivitamins/Minerals/Vitamin C (Tab-A-Vit -) 1 tab PO DAILY [facility] Mupirocin (Bactroban Ointment (For Decolonization) -) 1 applic NS BID [facility] Stop: 12/09/19 09:59 Last Admin: 12/05/19 09:15 Dose: 1 applic Documented by: Nifedipine (Procardia Xl -) 120 mg PO DAILY [facility] Last Admin: 12/05/19 10:24 Dose: 120 mg Documented by: Pancrelipase (Creon Dr 36,000 Units Capsule) 1 cap PO TIDCM [facility] Last Admin: 12/05/19 09:17 Dose: Not Given Documented by: Pantoprazole Sodium (Protonix Iv) 40 mg IVPUSH DAILY [facility] Last Admin: 12/05/19 09:05 Dose: 40 mg Documented by: Polyethylene Glycol (Miralax (For Daily Use) -) 17 gm PO BID [facility] Last Admin: 12/05/19 09:15 Dose: 17 gm Documented by: Polysaccharide Iron Complex (Niferex-150 -) 150 mg PO DAILY [facility] Potassium Chloride (K-Dur -) 40 meq PO DAILY [facility] Last Admin: 12/05/19 10:24 Dose: 40 meq Documented by: Senna (Senna -) 2 tab PO HS PRN PRN Reason: CONSTIPATION A/P SUBJECTIVE: Pt seen and examined in the ICU. Remains on nitro gtt. Saturating well on nasal cannula. OBJECTIVE: Vital Signs Period Temp Pulse Resp BP Sys/East Pulse Ox Last 24 Hr 98.4 F-99.9 F 63-78 13-22 146-220/50-98 95-100 Intake & Output 12/01/19 12/02/19 12/03/19 12/04/19 23:59 23:59 23:59 23:59 Intake Total 412 Output Total 70 300 Balance -70 112 Weight 72.575 kg 59.194 kg Gen: NAD at rest Heart: RRR Lung: decreased breath sounds at the bases Abd: soft, nontender Ext: no edema CBC, BMP 12/04/19 05:45 12/04/19 05:45 Active Medications Acetaminophen (Tylenol -) 650 mg PO Q4H PRN PRN Reason: PAIN 1-6 Aspirin (Asa -) 81 mg PO DAILY [facility] Last Admin: 12/04/19 09:14 Dose: 81 mg Documented by: Atorvastatin Calcium (Lipitor -) 80 mg PO HS [facility] Chlorhexidine Gluconate (Hibiclens For Decolonization -) 1 applic TP [facility] Dicyclomine HCl (Bentyl -) 10 mg PO Q6H PRN PRN Reason: MUSCLE SPASMS Furosemide (Lasix Injection -) 40 mg IVPUSH BID@0600,1400 [facility] Heparin Sodium (Porcine) (Heparin -) 1,000 unit IVPUSH PRN PRN PRN Reason: Heparin Heparin Sodium (Porcine) (Heparin -) 5,000 unit IVPUSH PRN PRN PRN Reason: Heparin Hydralazine HCl (Apresoline -) 50 mg PO TID [facility] Heparin Sodium/Dextrose (Heparin Infusion -) 25,000 units in 500 mls @ 18 mls/hr IVPB TITR [facility]; Protocol Last Admin: 12/04/19 02:44 Dose: 900 units/hr, 18 mls/hr Documented by: Nitroglycerin/Dextrose (Nitroglycerin 25mg/D5w 250ml) 25 mg in 250 mls @ 6 mls/hr IVPB TITR [facility]; Protocol Last Titration: 12/04/19 05:23 Dose: 63 mcg/min, 37.8 mls/hr Documented by: Piperacillin Sod/Tazobactam (Sod 4.5 gm/ Dextrose) 100 mls @ 200 mls/hr IVPB BID [facility]; Protocol Azithromycin (Zithromax 500mg Ivpb (Pre-Docked)) 500 mg in 250 mls @ 250 mls/hr IVPB DAILY [facility] Last Admin: 12/04/19 09:14 Dose: 250 mls/hr Documented by: Piperacillin Sod/Tazobactam (Sod 4.5 gm/ Dextrose) 100 mls @ 200 mls/hr IVPB BID [facility]; Protocol Stop: 12/04/19 22:29 Last Admin: 12/04/19 10:39 Dose: 200 mls/hr Documented by: Labetalol HCl (Normodyne -) 200 mg PO TID [facility] Levothyroxine Sodium (Synthroid -) 25 mcg PO DAILY@0700 [facility] Last Admin: 12/04/19 06:23 Dose: 25 mcg Documented by: Memantine (Namenda -) 5 mg PO BID [facility] Last Admin: 12/04/19 10:39 Dose: 5 mg Documented by: Mirtazapine (Remeron -) 30 mg PO HS [facility] Mupirocin (Bactroban Ointment (For Decolonization) -) 1 applic NS BID [facility] Stop: 12/09/19 09:59 Pancrelipase (Creon Dr 36,000 Units Capsule) 1 cap PO TIDCM [facility] Last Admin: 12/04/19 09:15 Dose: 1 cap Documented by: Pantoprazole Sodium (Protonix Iv) 40 mg IVPUSH DAILY [facility] Last Admin: 12/04/19 09:14 Dose: 40 mg Documented by: Polyethylene Glycol (Miralax (For Daily Use) -) 17 gm PO BID [facility] Last Admin: 12/04/19 10:38 Dose: 17 gm Documented by: Senna (Senna -) 2 tab PO HS PRN PRN Reason: CONSTIPATION ASSESSMENT AND PLAN: Hypertensive Urgency resolved Acute on Chronic Diastolic Heart Failure UTI Pleural Effusions from above Pericardial Effusion +Troponins likely Demand Ischemia HTN Hyperlipidemia DM Hypothyroidism CKD Anemia Parkinsons Dementia - continue antibiotics - f/u cultures - titrate BP meds - anticoagulation per cardiology - O2 to keep SpO2 >90% - continue lasix - monitor urine output, creatinine - GI w/u in progress - DVT prophylaxis
--- NOTE | 2019-12-05 11:07 | CON.CARD ---
Consult Consult Specialty:: Cardiology Referred by:: Dr. sEpana Reason for Consultation:: Acute CHF - History of Present Illness Chief Complaint: Worsening SOB History of Present Illness: 79 year old woman with a PMHx of HTN, DM, hyperlipidemia, diastolic CHF, moderate to large pericardial effusion without cardiac tamponade on echo 11/23/2019, Parkinson's disease, dementia, CVA, recent admission to [facility] for UTI/CHF (discharged on 12/02/19) readmitted 12/03/19 with shortness of breath. As per patients daughter, upon discharge from the hospital, she appeared better. Her mother deteriorated quickly where she was not eating, had trouble breathing and looked sick, prompting the request for EMS. Her oxygen saturation was in the 70s on room air at home. COVID negative 11/23/2019. CXR 12/04/19 showed progressive worsening bilateral effusion, congestion and infiltrates. BNP is severely elevated. Troponin is elevated in the setting of JASPER and acute CHF. ECG 12/04/19: Sinus rhythm. LAD. Minor non-specific ST-T changes. Echo 12/04/19: Limited study. Small pericardial effusion (<1cm) without cardiac tamponade. When compared with previous echo on 11/24/19, pericardial effusion is reduced. Echo 11/24/19: LVEF 50-55%. Normal RV. Mild LA dilatation. FCAV without . MAC. Minimal MR. Mild TR. Moderate to large pericardial effusion without cardiac tamponade. - History Source History Provided By: Patient, Family Member, Medical Record Limitations to Obtaining History: No Limitations - Past Medical History THERAPY COORDINATOR: Yes: Dementia, Peripheral Neuropathy, Parkinson's Cardio/Vascular: Yes: CHF (diastolic), HTN, Hyperlipdemia Gastrointestinal: Yes: Diverticulosis Psych: Yes: Anxiety Musculoskeletal: Yes: Osteoarthritis Endocrine: Yes: Diabetes Mellitus - Past Surgical History Past Surgical History: Yes: Appendectomy, Cholecystectomy, - Alcohol/Substance Use Hx Alcohol Use: No History of Substance Use: reports: None (unknown) - Smoking History Smoking history: Unknown if ever smoked Have you smoked in the past 12 months: No Aproximately how many cigarettes per day: 0 - Social History Usual Living Arrangement: Alone 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 (also has [employer] 6 hours x5 days and 5 hours x2 days) History of Recent Travel: No Home Medications - Allergies Allergies/Adverse Reactions: Allergies Allergy/AdvReac Type Severity Reaction Status Date / Time carbidopa [From Sinemet] AdvReac Verified 11/23/19 15:47 levodopa [From Sinemet] AdvReac Verified 11/23/19 15:47 - Home Medications Home Medications: Ambulatory Orders Levothyroxine [Synthroid -] 25 mcg PO DAILY 04/24/19 Aspirin 81 mg PO DAILY 04/25/19 Atorvastatin Ca [Lipitor] 20 mg PO HS 04/25/19 Bupropion HCl [Wellbutrin -] 150 mg PO DAILY 04/25/19 Hydralazine HCl 25 mg PO TID 04/25/19 Labetalol HCl [Normodyne -] 400 mg PO TID 04/25/19 Lipase/Protease/Amylase [Creon Dr 36,000 Units Capsule] 1 each PO TID 04/25/19 Mirtazapine 30 mg PO HS 04/25/19 Potassium Chloride 20 meq PO DAILY 04/25/19 Diclofenac Sodium 75 mg PO DAILY 11/23/19 Memantine HCl/Donepezil HCl [Namzaric 14 mg-10 mg Capsule] 1 cap PO DAILY traZODone HCL [Trazodone HCl] 50 mg PO HS 11/23/19 Acetaminophen [Tylenol .Regular Strength -] 650 mg PO Q4H PRN tablet 12/02/19 Albuterol Sulfate Inhaler - [Ventolin HFA Inhaler -] 2 puff IH Q6H PRN inhaler 12/02/19 Dicyclomine HCl [Bentyl -] 10 mg PO Q6H PRN capsule 12/02/19 Dronabinol [Marinol -] 2.5 mg PO DAILY capsule 12/02/19 Iron Polysaccharides [Niferex-150 -] 150 mg PO DAILY #30 capsule 12/02/19 Labetalol HCl [Normodyne -] 200 mg PO TID tablet 12/02/19 Mag Hydrox/Al Hydrox/Simeth [Mylanta Oral Suspension -] 30 ml PO Q6H PRN #1 bot 12/02/19 Metoclopramide HCl [Reglan -] 10 mg PO TIDAC #90 tablet 12/02/19 Multivitamins [Multivit ([facility] Formulary)] 1 tab PO DAILY #30 tab 12/02/19 Pantoprazole Sodium [Protonix -] 20 mg PO DAILY #30 tablet.ec 12/02/19 Polyethylene Glycol 3350 [Miralax 119 gm Btl -] 17 gm PO BID bottle 12/02/19 Sennosides [Senna -] 2 tab PO HS #60 tablet 12/02/19 Torsemide [Demadex -] 40 mg PO DAILY #60 tablet 12/02/19 hydrALAZINE HCL [Apresoline -] 50 mg PO TID tablet 12/02/19 Nifedipine ER [Procardia XL -] 60 mg PO BID 12/04/19 Olmesartan Medoxomil [Benicar (Nf)] 40 mg PO DAILY 12/04/19 Review of Systems - Review of Systems Constitutional: reports: Lethargy, Weakness Eyes: reports: No Symptoms HENT: reports: No Symptoms Neck: reports: No Symptoms Cardiovascular: reports: Shortness of Breath Respiratory: reports: Exercise Intolerance, SOB, SOB on Exertion Gastrointestinal: reports: Abdominal Pain Genitourinary: reports: No Symptoms Musculoskeletal: reports: No Symptoms Integumentary: reports: No Symptoms Neurological: reports: No Symptoms Endocrine: reports: No Symptoms Vital Signs: Vital Signs Temperature 99 F 12/05/19 02:00 Pulse Rate 66 12/05/19 08:13 Respiratory Rate 16 12/05/19 09:00 Blood Pressure 184/51 H 12/05/19 08:00 O2 Sat by Pulse Oximetry (%) 100 12/05/19 09:00 General: Well developed. Poorly nourished. Chronic ill and frail. No acute distress. Head: Normocephalic. Atraumatic, Eyes: PERRLA, EOMI. Sclerae anicteric. Conjunctivae clear. Neck: Supple. (+) JVD. No bruits. Heart: Normal S1, S2: Regular rhythm and rate. No murmur. No gallop or rub. Lungs: Decrease BS at bases. Bibasilar crackles. No wheezing or rhonchi. Abdomen: Soft. Bowel sound positive. Non tender. No masses. Extremities: No edema. No clubbing or cyanosis. PD 2+, equal bilaterally. - Other Data Labs, Other Data: CBC, BMP 12/05/19 05:40 12/05/19 06:00 Assessment/Plan 79 year old woman with a PMHx of HTN, DM, hyperlipidemia, diastolic CHF, moderate to large pericardial effusion without cardiac tamponade on echo 11/23/2019, Parkinson's disease, dementia, CVA, recent admission to [facility] for UTI/CHF (discharged on 12/02/19) readmitted 12/03/19 with shortness of breath. CXR 12/04/19 showed progressive worsening bilateral effusion, congestion and infiltrates. BNP is severely elevated. Troponin is elevated in the setting of JASPER and acute CHF. ECG 12/04/19: Sinus rhythm. LAD. Minor non-specific ST-T changes. Echo 12/04/19: Limited study. Small pericardial effusion (<1cm) without cardiac tamponade. When compared with previous echo on 11/24/19, pericardial effusion is reduced. Echo 11/24/19: LVEF 50-55%. Normal RV. Mild LA dilatation. FCAV without . MAC. Minimal MR. Mild TR. Moderate to large pericardial effusion without cardiac tamponade. 1) Acute on chronic diastolic CHF: Worsening dyspnea may be also contributed by superimposed bacterial pneumonia. Continue IV Lasix 40 mg q12h to keep Os >Is. Monitor daily electrolytes, renal function and body weight. Continue IV Abx as per critical care and ID. 2) Elevated troponin, likely demand ischemia in the setting of acute CHF and JASPER. No acute ECG changes of ischemia. May discontinue IV heparin. Continue aspirin, labetalol and atorvastatin. 3) Pericardial effusion: Markedly reduced from the repeat echocardiogram on 12/04/19. Diuresis therapy could prevent reaccumulating pericardial effusion. We will follow the patient with you.
[2019-12-05] MEDS: MULTIVITAMINS (DAILY MVI) TABLET (FP) PO SCH (11:23)
[2019-12-05] MEDS: DONEPEZIL HCL 10 MG TABLET (FP) PO SCH (11:23)
[2019-12-05] MEDS: IRON POLYSACCHARIDES 150 MG CAPSULE PO SCH (13:20)
[2019-12-05] MEDS: METOCLOPRAMIDE HCL 10 MG TABLET (FP) PO SCH ×2 (13:20→18:12)
--- NOTE | 2019-12-05 16:37 | PN ---
Progress Note, Physician History of Present Illness: Pt seen and examined at bedside. She is awake and appears comfortable. She feels that her breathing is improved. - Current Medication List Current Medications: Active Medications Acetaminophen (Tylenol -) 650 mg PO Q4H PRN PRN Reason: PAIN 1-6 Aspirin (Asa -) 81 mg PO DAILY [facility] Last Admin: 12/05/19 09:05 Dose: 81 mg Documented by: Atorvastatin Calcium (Lipitor -) 80 mg PO HS [facility] Last Admin: 12/04/19 22:42 Dose: Not Given Documented by: Chlorhexidine Gluconate (Hibiclens For Decolonization -) 1 applic TP HS [facility] Last Admin: 12/04/19 21:59 Dose: 1 applic Documented by: Dicyclomine HCl (Bentyl -) 10 mg PO Q6H PRN PRN Reason: MUSCLE SPASMS Last Admin: 12/05/19 12:45 Dose: 10 mg Documented by: Donepezil HCl (Aricept -) 10 mg PO DAILY [facility] Last Admin: 12/05/19 11:23 Dose: 10 mg Documented by: Dronabinol (Marinol -) 2.5 mg PO 1730 [facility] Furosemide (Lasix Injection -) 40 mg IVPUSH BID@0600,1400 [facility] Last Admin: 12/05/19 13:25 Dose: 40 mg Documented by: Heparin Sodium (Porcine) (Heparin -) 1,000 unit IVPUSH PRN PRN PRN Reason: Heparin Heparin Sodium (Porcine) (Heparin -) 5,000 unit IVPUSH PRN PRN PRN Reason: Heparin Hydralazine HCl (Apresoline -) 50 mg PO TID [facility] Last Admin: 12/05/19 14:42 Dose: 50 mg Documented by: Heparin Sodium/Dextrose (Heparin Infusion -) 25,000 units in 500 mls @ 18 mls/hr IVPB TITR [facility]; Protocol Last Titration: 12/05/19 06:47 Dose: 850 units/hr, 17 mls/hr Documented by: Azithromycin (Zithromax 500mg Ivpb (Pre-Docked)) 500 mg in 250 mls @ 250 mls/hr IVPB DAILY [facility] Last Admin: 12/05/19 09:05 Dose: 250 mls/hr Documented by: Piperacillin Sod/Tazobactam (Sod 2.25 gm/ Dextrose) 50 mls @ 100 mls/hr IVPB Q8H-IV [facility]; Protocol Last Admin: 12/05/19 09:11 Dose: 100 mls/hr Documented by: Labetalol HCl (Normodyne -) 200 mg PO TID [facility] Last Admin: 12/05/19 14:42 Dose: 200 mg Documented by: Levothyroxine Sodium (Synthroid -) 25 mcg PO DAILY@0700 [facility] Last Admin: 12/05/19 06:29 Dose: 25 mcg Documented by: Memantine (Namenda -) 5 mg PO BID [facility] Last Admin: 12/05/19 09:16 Dose: 5 mg Documented by: Metoclopramide HCl (Reglan -) 10 mg PO TIDAC [facility] Last Admin: 12/05/19 13:20 Dose: Not Given Documented by: Mirtazapine (Remeron -) 30 mg PO HS [facility] Last Admin: 12/04/19 22:43 Dose: Not Given Documented by: Multivitamins/Minerals/Vitamin C (Tab-A-Vit -) 1 tab PO DAILY [facility] Last Admin: 12/05/19 11:23 Dose: 1 tab Documented by: Mupirocin (Bactroban Ointment (For Decolonization) -) 1 applic NS BID [facility] Stop: 12/09/19 09:59 Last Admin: 12/05/19 09:15 Dose: 1 applic Documented by: Nifedipine (Procardia Xl -) 120 mg PO DAILY [facility] Last Admin: 12/05/19 10:24 Dose: 120 mg Documented by: Pancrelipase (Creon Dr 36,000 Units Capsule) 1 cap PO TIDCM [facility] Last Admin: 12/05/19 13:20 Dose: Not Given Documented by: Pantoprazole Sodium (Protonix Iv) 40 mg IVPUSH DAILY [facility] Last Admin: 12/05/19 09:05 Dose: 40 mg Documented by: Polyethylene Glycol (Miralax (For Daily Use) -) 17 gm PO BID [facility] Last Admin: 12/05/19 09:15 Dose: 17 gm Documented by: Polysaccharide Iron Complex (Niferex-150 -) 150 mg PO DAILY [facility] Last Admin: 12/05/19 13:20 Dose: Not Given Documented by: Potassium Chloride (K-Dur -) 40 meq PO DAILY [facility] Last Admin: 12/05/19 10:24 Dose: 40 meq Documented by: Senna (Senna -) 2 tab PO HS PRN PRN Reason: CONSTIPATION - Objective Vital Signs: Vital Signs Temperature 98.8 F 12/05/19 14:00 Pulse Rate 56 L 12/05/19 14:00 Respiratory Rate 13 12/05/19 14:00 Blood Pressure 131/46 L 12/05/19 14:00 O2 Sat by Pulse Oximetry (%) 97 12/05/19 15:52 Constitutional: Yes: Calm Eyes: Yes: Conjunctiva Clear HENT: Yes: Atraumatic Cardiovascular: Yes: S1, S2 Respiratory: Yes: CTA Bilaterally Gastrointestinal: Yes: Soft Genitourinary: Yes: WNL Musculoskeletal: Yes: WNL Edema: No Integumentary: Yes: WNL Neurological: Yes: Oriented Labs: CBC, BMP 12/05/19 05:40 12/05/19 06:00 Assessment/Plan Current Medications Generic Name Dose Route Start Last Admin Trade Name Freq PRN Reason Stop Dose Admin Acetaminophen 650 mg 12/04/19 08:10 Tylenol - PO Q4H PRN PAIN 1-6 Aspirin 81 mg 12/04/19 10:00 12/05/19 09:05 Asa - PO 81 mg DAILY [facility] Administration Atorvastatin Calcium 80 mg 12/04/19 22:00 12/04/19 22:42 Lipitor - PO Not Given HS [facility] Chlorhexidine Gluconate 1 applic 12/04/19 22:00 12/04/19 21:59 Hibiclens For Decolonization - TP 1 applic HS [facility] Administration Dicyclomine HCl 10 mg 12/04/19 02:42 12/05/19 12:45 Bentyl - PO 10 mg Q6H PRN Administration MUSCLE SPASMS Donepezil HCl 10 mg 12/05/19 10:30 12/05/19 11:23 Aricept - PO 10 mg DAILY [facility] Administration Dronabinol 2.5 mg 12/05/19 17:30 Marinol - PO 1730 [facility] Furosemide 40 mg 12/04/19 14:00 12/05/19 13:25 Lasix Injection - IVPUSH 40 mg BID@0600,1400 [facility] Administration Heparin Sodium (Porcine) 1,000 unit 12/04/19 01:57 Heparin - IVPUSH PRN PRN Heparin Heparin Sodium (Porcine) 5,000 unit 12/04/19 01:57 Heparin - IVPUSH PRN PRN Heparin Hydralazine HCl 50 mg 12/04/19 14:00 12/05/19 14:42 Apresoline - PO 50 mg TID [facility] Administration Heparin Sodium/Dextrose 25,000 units in 500 mls @ 18 mls/hr 12/04/19 02:00 12/05/19 06:47 Heparin Infusion - IVPB 850 units/hr TITR [facility] 17 mls/hr Titration Protocol 900 UNITS/HR Azithromycin 500 mg in 250 mls @ 250 mls/hr 12/04/19 10:00 12/05/19 09:05 Zithromax 500mg Ivpb (Pre-Docked) IVPB 250 mls/hr DAILY [facility] Administration Piperacillin Sod/Tazobactam 50 mls @ 100 mls/hr 12/04/19 18:00 12/05/19 09:11 Sod 2.25 gm/ Dextrose IVPB 100 mls/hr Q8H-IV [facility] Administration Protocol Labetalol HCl 200 mg 12/04/19 14:00 12/05/19 14:42 Normodyne - PO 200 mg TID [facility] Administration Levothyroxine Sodium 25 mcg 12/04/19 07:00 12/05/19 06:29 Synthroid - PO 25 mcg DAILY@0700 [facility] Administration Memantine 5 mg 12/04/19 10:00 12/05/19 09:16 Namenda - PO 5 mg BID [facility] Administration Metoclopramide HCl 10 mg 12/05/19 11:00 12/05/19 13:20 Reglan - PO Not Given TIDAC [facility] Mirtazapine 30 mg 12/04/19 22:00 12/04/19 22:43 Remeron - PO Not Given HS [facility] Multivitamins/Minerals/Vitamin C 1 tab 12/05/19 10:30 12/05/19 11:23 Tab-A-Vit - PO 1 tab DAILY [facility] Administration Mupirocin 1 applic 12/04/19 10:00 12/05/19 09:15 Bactroban Ointment (For Decolonization) - NS 12/09/19 09:59 1 applic BID [facility] Administration Nifedipine 120 mg 12/05/19 10:15 12/05/19 10:24 Procardia Xl - PO 120 mg DAILY [facility] Administration Pancrelipase 1 cap 12/04/19 08:00 12/05/19 13:[address] 36,000 Units Capsule PO Not Given TIDCM [facility] Pantoprazole Sodium 40 mg 12/04/19 10:00 12/05/19 09:05 Protonix Iv IVPUSH 40 mg DAILY [facility] Administration Polyethylene Glycol 17 gm 12/04/19 10:00 12/05/19 09:15 Miralax (For Daily Use) - PO 17 gm BID [facility] Administration Polysaccharide Iron Complex 150 mg 12/05/19 10:30 12/05/19 13:20 Niferex-150 - PO Not Given DAILY [facility] Potassium Chloride 40 meq 12/05/19 10:00 12/05/19 10:24 K-Dur - PO 40 meq DAILY [facility] Administration Senna 2 tab 12/04/19 05:47 Senna - PO HS PRN CONSTIPATION Impression 1. JASPER 2. CKD 3. HLD 4. diverticulosis 5. HTN 6. DM 7. proteinuria 8. hypoalbuminemia 9. UTI 10. pleural effusion 11. chf 12. pericardial effusion without tamponade 13. fluid overload Impression - cont lasix - monitor renal function - replace potassium - repeat labs in am - restart low dose losartan when more stable as she does have proteinuria
--- NOTE | 2019-12-05 17:01 | PN ---
Progress Note (short form) - Note Progress Note: now with cortez no sob Vital Signs Period Temp Pulse Resp BP Sys/East Pulse Ox Last 24 Hr 98.1 F-99.3 F 56-66 13-18 131-190/38-56 97-100 cor-rrr lungs decreased bs at bases abd soft,nt ext no edema cortez CBC, BMP 12/05/19 05:40 12/05/19 06:00 imp/reccd bilateral infiltrates c/w CHF- will d/c zithromax today, legionella antigen negative, will d/w pulmonary in am chf + troponins ckd htn anemia maintain contact isolation
[2019-12-05] MEDS: DRONABINOL 2.5 MG CAPSULE PO SCH (18:12)
[2019-12-05] MEDS: ATORVASTATIN CA 20 MG TABLET (FP) PO SCH (21:02)
[2019-12-05] MEDS: CHLORHEXIDINE GLUCONATE 4% CLEANSER FOR DECOLONIZATION TP SCH (21:03)
[2019-12-05] MEDS: MIRTAZAPINE 15 MG TABLET (FP) PO SCH (21:03)
[2019-12-06] MEDS ORDERED: PIPERACILLIN/TAZOBACTAM 2.25 GM VIAL IVPB ONE ×2 (01:31→10:21)
[2019-12-06] MEDS ORDERED: DEXTROSE 5%-WATER - 50 ML IVPB ONE ×2 (01:31→10:22)
[2019-12-06] MEDS: PIPERACILLIN/TAZOB 2.25 GM 2.25 GM in DEXTROSE 5%-WATER - 50 ML IVPB SCH ×2 (01:39→10:29)
[2019-12-06] MEDS: FUROSEMIDE 40 MG/4 ML INJECTABLE VIAL IVPUSH SCH ×2 (06:06→14:28)
[2019-12-06] MEDS: METOCLOPRAMIDE HCL 10 MG TABLET (FP) PO SCH ×4 (06:06→17:50)
[2019-12-06] MEDS: LABETALOL HCL 200 MG TABLET (FP) PO SCH ×4 (06:06→21:54)
[2019-12-06] MEDS: LEVOTHYROXINE NA 25 MCG TABLET (FP) PO SCH (06:06)
[2019-12-06] MEDS: hydrALAZINE HCL 50 MG TABLET (FP) PO SCH ×4 (06:06→21:53)
[2019-12-06 06:38] LABS: BASO % 1.1 % (0-2.0); EOS % 7.5 % (0-4.5); HEMATOCRIT 27.6 % (32.4-45.2); LYMPH % 4.7 % (8-40); MCHC 32.7 g/dl (32.0-36.0); MEAN CELL VOLUME 82.5 fl (80-96); MEAN PLT VOLUME 7.4 fl (7.5-11.1); MONO % 11.5 % (3.8-10.2); NEUT % 75.2 % (42.8-82.8); PLATELET COUNT 321 K/MM3 (134-434); RBC 3.35 M/mm3 (3.60-5.2); RDW 17.2 % (11.6-15.6); WHITE BLOOD COUNT 11.3 K/mm3 (4.0-10.0)
[2019-12-06 07:05] LABS: ALBUMIN 2.3 g/dl (3.4-5.0); BILIRUBIN,TOTAL 0.5 mg/dL (0.2-1); BLOOD UREA NITROGEN 49.5 mg/dL (7-18); CALCIUM 7.9 mg/dL (8.5-10.1); CREATININE 2.5 mg/dL (0.55-1.3); MAGNESIUM 1.8 mg/dL (1.8-2.4); POTASSIUM 3.2 mmol/L (3.5-5.1)
[2019-12-06] MEDS ORDERED: PT OWN MED DRAWER 7, Y5N ONE (10:21)
[2019-12-06] MEDS: ASPIRIN 81 MG CHEWABLE TABLETS PO SCH (10:27)
[2019-12-06] MEDS: POTASSIUM CHLORIDE TABS 20 MEQ TABLET.ER (FP) PO SCH (10:27)
[2019-12-06] MEDS: DONEPEZIL HCL 10 MG TABLET (FP) PO SCH (10:27)
[2019-12-06] MEDS: IRON POLYSACCHARIDES 150 MG CAPSULE PO SCH (10:28)
[2019-12-06] MEDS: MEMANTINE HCL 5 MG TABLET (UD) PO SCH ×2 (10:28→21:54)
[2019-12-06] MEDS: NIFEdipine E.R 60 MG TABLET PO SCH (10:28)
[2019-12-06] MEDS: MULTIVITAMINS (DAILY MVI) TABLET (FP) PO SCH (10:29)
[2019-12-06] MEDS: PANTOPRAZOLE SODIUM 40 MG VIAL IVPUSH SCH (10:29)
[2019-12-06] MEDS: POLYETHYLENE GLYCOL 3350 119 GM BTL PO SCH ×2 (10:31→21:54)
[2019-12-06] MEDS: MUPIROCIN 2% TOPICAL OINTMENT FOR DECOLONIZATION NS SCH ×2 (10:31→21:52)
--- NOTE | 2019-12-06 11:54 | PN ---
Progress Note (short form) - Note Progress Note: PULMONARY Denies shortness of breath, chest pain. Vital Signs Period Temp Pulse Resp BP Sys/East Pulse Ox Last 24 Hr 98.2 F-99 F 55-61 12-18 96-163/38-61 97-100 Intake & Output 12/03/19 12/04/19 12/05/19 12/06/19 23:59 23:59 23:59 23:59 Intake Total 1718 506 120 Output Total 70 550 300 320 Balance -70 1168 206 -200 Weight 72.575 kg 59.194 kg 58.967 kg 59.647 kg Gen: NAD at rest Heart: RRR Lung: decreased breath sounds at the bases Abd: soft, nontender Ext: no edema CBC, BMP 12/06/19 05:35 12/06/19 05:35 Active Medications Acetaminophen (Tylenol -) 650 mg PO Q4H PRN PRN Reason: PAIN 1-6 Aspirin (Asa -) 81 mg PO DAILY [facility] Last Admin: 12/06/19 10:27 Dose: 81 mg Documented by: Atorvastatin Calcium (Lipitor -) 20 mg PO HS [facility] Last Admin: 12/05/19 21:02 Dose: 20 mg Documented by: Chlorhexidine Gluconate (Hibiclens For Decolonization -) 1 applic TP [facility] Last Admin: 12/05/19 21:03 Dose: 1 applic Documented by: Dicyclomine HCl (Bentyl -) 10 mg PO Q6H PRN PRN Reason: MUSCLE SPASMS Last Admin: 12/05/19 21:03 Dose: 10 mg Documented by: Donepezil HCl (Aricept -) 10 mg PO DAILY [facility] Last Admin: 12/06/19 10:27 Dose: 10 mg Documented by: Dronabinol (Marinol -) 2.5 mg PO 1730 [facility] Last Admin: 12/05/19 18:12 Dose: 2.5 mg Documented by: Furosemide (Lasix Injection -) 40 mg IVPUSH BID@0600,1400 [facility] Last Admin: 12/06/19 06:06 Dose: 40 mg Documented by: Hydralazine HCl (Apresoline -) 50 mg PO TID [facility] Last Admin: 12/06/19 06:06 Dose: 50 mg Documented by: Piperacillin Sod/Tazobactam (Sod 2.25 gm/ Dextrose) 50 mls @ 100 mls/hr IVPB Q8H-IV [facility]; Protocol Last Admin: 12/06/19 10:29 Dose: 100 mls/hr Documented by: Potassium Chloride (Potassium Chloride 10 Meq Premix Ivpb -) 10 meq in 100 mls @ 100 mls/hr IVPB Q60M [facility] Stop: 12/06/19 14:44 Labetalol HCl (Normodyne -) 200 mg PO TID [facility] Last Admin: 12/06/19 06:06 Dose: 200 mg Documented by: Levothyroxine Sodium (Synthroid -) 25 mcg PO DAILY@0700 [facility] Last Admin: 12/06/19 06:06 Dose: 25 mcg Documented by: Memantine (Namenda -) 5 mg PO BID [facility] Last Admin: 12/06/19 10:28 Dose: 5 mg Documented by: Metoclopramide HCl (Reglan -) 10 mg PO TIDAC [facility] Last Admin: 12/06/19 10:30 Dose: 10 mg Documented by: Mirtazapine (Remeron -) 30 mg PO HS [facility] Last Admin: 12/05/19 21:03 Dose: 30 mg Documented by: Multivitamins/Minerals/Vitamin C (Tab-A-Vit -) 1 tab PO DAILY [facility] Last Admin: 12/06/19 10:29 Dose: 1 tab Documented by: Mupirocin (Bactroban Ointment (For Decolonization) -) 1 applic NS BID [facility] Stop: 12/09/19 09:59 Last Admin: 12/06/19 10:31 Dose: 1 applic Documented by: Nifedipine (Procardia Xl -) 120 mg PO DAILY [facility] Last Admin: 12/06/19 10:28 Dose: 120 mg Documented by: Pantoprazole Sodium (Protonix Iv) 40 mg IVPUSH DAILY [facility] Last Admin: 12/06/19 10:29 Dose: 40 mg Documented by: Polyethylene Glycol (Miralax (For Daily Use) -) 17 gm PO BID [facility] Last Admin: 12/06/19 10:31 Dose: 17 gm Documented by: Polysaccharide Iron Complex (Niferex-150 -) 150 mg PO DAILY [facility] Last Admin: 12/06/19 10:28 Dose: 150 mg Documented by: Potassium Chloride (K-Dur -) 40 meq PO DAILY [facility] Last Admin: 12/06/19 10:27 Dose: 40 meq Documented by: Jr (Jr -) 2 tab PO HS PRN PRN Reason: CONSTIPATION ASSESSMENT AND PLAN: Hypertensive Urgency resolved Acute on Chronic Diastolic Heart Failure UTI Pleural Effusions from above Pericardial Effusion +Troponins likely Demand Ischemia HTN Hyperlipidemia DM Hypothyroidism CKD Anemia Parkinsons Dementia - antibiotics per ID - titrate BP meds - O2 to keep SpO2 >90% - continue lasix - monitor urine output, creatinine - DVT prophylaxis
--- NOTE | 2019-12-06 12:38 | PN ---
Progress Note, Physician History of Present Illness: Pt seen and examined at bedside. She is awake and appears comfortable. - Current Medication List Current Medications: Active Medications Acetaminophen (Tylenol -) 650 mg PO Q4H PRN PRN Reason: PAIN 1-6 Aspirin (Asa -) 81 mg PO DAILY [facility] Last Admin: 12/06/19 10:27 Dose: 81 mg Documented by: Atorvastatin Calcium (Lipitor -) 20 mg PO [facility] Last Admin: 12/05/19 21:02 Dose: 20 mg Documented by: Chlorhexidine Gluconate (Hibiclens For Decolonization -) 1 applic TP [facility] Last Admin: 12/05/19 21:03 Dose: 1 applic Documented by: Dicyclomine HCl (Bentyl -) 10 mg PO Q6H PRN PRN Reason: MUSCLE SPASMS Last Admin: 12/05/19 21:03 Dose: 10 mg Documented by: Donepezil HCl (Aricept -) 10 mg PO DAILY [facility] Last Admin: 12/06/19 10:27 Dose: 10 mg Documented by: Dronabinol (Marinol -) 2.5 mg PO 1730 [facility] Last Admin: 12/05/19 18:12 Dose: 2.5 mg Documented by: Furosemide (Lasix Injection -) 40 mg IVPUSH BID@0600,1400 [facility] Last Admin: 12/06/19 06:06 Dose: 40 mg Documented by: Hydralazine HCl (Apresoline -) 50 mg PO TID [facility] Last Admin: 12/06/19 06:06 Dose: 50 mg Documented by: Piperacillin Sod/Tazobactam (Sod 2.25 gm/ Dextrose) 50 mls @ 100 mls/hr IVPB Q8H-IV [facility]; Protocol Last Admin: 12/06/19 10:29 Dose: 100 mls/hr Documented by: Potassium Chloride (Potassium Chloride 10 Meq Premix Ivpb -) 10 meq in 100 mls @ 100 mls/hr IVPB Q60M [facility] Stop: 12/06/19 14:44 Labetalol HCl (Normodyne -) 200 mg PO TID [facility] Last Admin: 12/06/19 06:06 Dose: 200 mg Documented by: Levothyroxine Sodium (Synthroid -) 25 mcg PO DAILY@0700 [facility] Last Admin: 12/06/19 06:06 Dose: 25 mcg Documented by: Memantine (Namenda -) 5 mg PO BID [facility] Last Admin: 12/06/19 10:28 Dose: 5 mg Documented by: Metoclopramide HCl (Reglan -) 10 mg PO TIDAC [facility] Last Admin: 12/06/19 10:30 Dose: 10 mg Documented by: Mirtazapine (Remeron -) 30 mg PO HS [facility] Last Admin: 12/05/19 21:03 Dose: 30 mg Documented by: Multivitamins/Minerals/Vitamin C (Tab-A-Vit -) 1 tab PO DAILY [facility] Last Admin: 12/06/19 10:29 Dose: 1 tab Documented by: Mupirocin (Bactroban Ointment (For Decolonization) -) 1 applic NS BID [facility] Stop: 12/09/19 09:59 Last Admin: 12/06/19 10:31 Dose: 1 applic Documented by: Nifedipine (Procardia Xl -) 120 mg PO DAILY [facility] Last Admin: 12/06/19 10:28 Dose: 120 mg Documented by: Pantoprazole Sodium (Protonix Iv) 40 mg IVPUSH DAILY [facility] Last Admin: 12/06/19 10:29 Dose: 40 mg Documented by: Polyethylene Glycol (Miralax (For Daily Use) -) 17 gm PO BID [facility] Last Admin: 12/06/19 10:31 Dose: 17 gm Documented by: Polysaccharide Iron Complex (Niferex-150 -) 150 mg PO DAILY [facility] Last Admin: 12/06/19 10:28 Dose: 150 mg Documented by: Potassium Chloride (K-Dur -) 40 meq PO DAILY [facility] Last Admin: 12/06/19 10:27 Dose: 40 meq Documented by: Senna (Senna -) 2 tab PO HS PRN PRN Reason: CONSTIPATION - Objective Vital Signs: Vital Signs Temperature 98.9 F 12/06/19 08:00 Pulse Rate 55 L 12/06/19 08:00 Respiratory Rate 12 12/06/19 08:00 Blood Pressure 144/41 L 12/06/19 08:00 O2 Sat by Pulse Oximetry (%) 100 12/06/19 08:00 Constitutional: Yes: Calm Eyes: Yes: Conjunctiva Clear HENT: Yes: Atraumatic Neck: Yes: Supple Cardiovascular: Yes: S1, S2 Respiratory: Yes: CTA Bilaterally Gastrointestinal: Yes: Soft Genitourinary: Yes: WNL Musculoskeletal: Yes: WNL Edema: No Integumentary: Yes: WNL Neurological: Yes: Oriented Psychiatric: Yes: Oriented Labs: CBC, BMP 12/06/19 05:35 12/06/19 05:35 Problem List - Problems (1) JASPER (acute kidney injury) Code(s): N17.9 - ACUTE KIDNEY FAILURE, UNSPECIFIED (2) CHF (congestive heart failure) Code(s): I50.9 - HEART FAILURE, UNSPECIFIED Qualifiers: Heart failure type: unspecified Heart failure chronicity: acute on chronic Qualified Code(s): I50.9 - Heart failure, unspecified (3) CKD (chronic kidney disease) Code(s): N18.9 - CHRONIC KIDNEY DISEASE, UNSPECIFIED Qualifiers: Chronic kidney disease stage: stage 5, not on chronic dialysis Qualified Code(s): N18.5 - Chronic kidney disease, stage 5 Assessment/Plan Current Medications Generic Name Dose Route Start Last Admin Trade Name Freq PRN Reason Stop Dose Admin Acetaminophen 650 mg 12/04/19 08:10 Tylenol - PO Q4H PRN PAIN 1-6 Aspirin 81 mg 12/04/19 10:00 12/06/19 10:27 Asa - PO 81 mg DAILY [facility] Administration Atorvastatin Calcium 20 mg 12/05/19 22:00 12/05/19 21:02 Lipitor - PO 20 mg HS [facility] Administration Chlorhexidine Gluconate 1 applic 12/04/19 22:00 12/05/19 21:03 Hibiclens For Decolonization - TP 1 applic HS [facility] Administration Dicyclomine HCl 10 mg 12/04/19 02:42 12/05/19 21:03 Bentyl - PO 10 mg Q6H PRN Administration MUSCLE SPASMS Donepezil HCl 10 mg 12/05/19 10:30 12/06/19 10:27 Aricept - PO 10 mg DAILY [facility] Administration Dronabinol 2.5 mg 12/05/19 17:30 12/05/19 18:12 Marinol - PO 2.5 mg 1730 [facility] Administration Furosemide 40 mg 12/04/19 14:00 12/06/19 06:06 Lasix Injection - IVPUSH 40 mg BID@0600,1400 [facility] Administration Hydralazine HCl 50 mg 12/04/19 14:00 12/06/19 06:06 Apresoline - PO 50 mg TID [facility] Administration Piperacillin Sod/Tazobactam 50 mls @ 100 mls/hr 12/04/19 18:00 12/06/19 10:29 Sod 2.25 gm/ Dextrose IVPB 100 mls/hr Q8H-IV [facility] Administration Protocol Potassium Chloride 10 meq in 100 mls @ 100 mls/hr 12/06/19 11:45 Potassium Chloride 10 Meq Premix Ivpb - IVPB 12/06/19 14:44 Q60M [facility] Labetalol HCl 200 mg 12/04/19 14:00 12/06/19 06:06 Normodyne - PO 200 mg TID [facility] Administration Levothyroxine Sodium 25 mcg 12/04/19 07:00 12/06/19 06:06 Synthroid - PO 25 mcg DAILY@0700 [facility] Administration Memantine 5 mg 12/04/19 10:00 12/06/19 10:28 Namenda - PO 5 mg BID [facility] Administration Metoclopramide HCl 10 mg 12/05/19 11:00 12/06/19 10:30 Reglan - PO 10 mg TIDAC [facility] Administration Mirtazapine 30 mg 12/04/19 22:00 12/05/19 21:03 Remeron - PO 30 mg HS [facility] Administration Multivitamins/Minerals/Vitamin C 1 tab 12/05/19 10:30 12/06/19 10:29 Tab-A-Vit - PO 1 tab DAILY [facility] Administration Mupirocin 1 applic 12/04/19 10:00 12/06/19 10:31 Bactroban Ointment (For Decolonization) - NS 12/09/19 09:59 1 applic BID [facility] Administration Nifedipine 120 mg 12/05/19 10:15 12/06/19 10:28 Procardia Xl - PO 120 mg DAILY [facility] Administration Pantoprazole Sodium 40 mg 12/04/19 10:00 12/06/19 10:29 Protonix Iv IVPUSH 40 mg DAILY [facility] Administration Polyethylene Glycol 17 gm 12/04/19 10:00 12/06/19 10:31 Miralax (For Daily Use) - PO 17 gm BID [facility] Administration Polysaccharide Iron Complex 150 mg 12/05/19 10:30 12/06/19 10:28 Niferex-150 - PO 150 mg DAILY [facility] Administration Potassium Chloride 40 meq 12/05/19 10:00 12/06/19 10:27 K-Dur - PO 40 meq DAILY [facility] Administration Senna 2 tab 12/04/19 05:47 Senna - PO HS PRN CONSTIPATION Impression 1. JASPER 2. CKD 3. HLD 4. diverticulosis 5. HTN 6. DM 7. proteinuria 8. hypoalbuminemia 9. UTI 10. pleural effusion 11. chf 12. pericardial effusion without tamponade 13. fluid overload Impression - cont lasix - replace potassium - can restart losartan - monitor lytes - monitor bp
[2019-12-06] MEDS: KCL 10 MEQ IVPB 10 MEQ/100 ML INFUS.BAG IVPB SCH ×3 (14:27→16:30)
--- NOTE | 2019-12-06 15:53 | PN ---
Progress Note (short form) - Note Progress Note: no complaints Vital Signs Period Temp Pulse Resp BP Sys/East Pulse Ox Last 24 Hr 98.2 F-99 F 55-61 12-16 96-163/36-61 97-100 cor-rrr lungs clear abd soft,nt ext no edema cortez CBC, BMP 12/06/19 05:35 12/06/19 05:35 Microbiology 12/03/19 21:45 Blood - Peripheral Venous Blood Culture - Preliminary NO GROWTH OBTAINED AFTER 48 HOURS, INCUBATION TO CONTINUE FOR 3 DAYS. 12/03/19 21:45 Blood - Peripheral Venous Blood Culture - Preliminary NO GROWTH OBTAINED AFTER 48 HOURS, INCUBATION TO CONTINUE FOR 3 DAYS. 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
--- NOTE | 2019-12-06 15:57 | PN ---
Progress Note, Physician Chief Complaint: The patient was not in distress, awake and alert. She complains of abdominal discomfort. No SOB at rest or chest pain. Tele shows sinus bradycardia 45-55 BPM. History of Present Illness: 79 year old woman with a PMHx of HTN, DM, hyperlipidemia, diastolic CHF, moderate to large pericardial effusion without cardiac tamponade on echo 11/23/2019, Parkinson's disease, dementia, CVA, recent admission to [facility] for UTI/CHF (discharged on 12/02/19) readmitted 12/03/19 with shortness of breath. CXR 12/04/19 showed progressive worsening bilateral effusion, congestion and infi ltrates. BNP is severely elevated. Troponin is elevated in the setting of JASPER and acute CHF. ECG 12/04/19: Sinus rhythm. LAD. Minor non-specific ST-T changes. Echo 12/04/19: Limited study. Small pericardial effusion (<1cm) without cardiac tamponade. When compared with previous echo on 11/24/19, pericardial effusion is reduced. Echo 11/24/19: LVEF 50-55%. Normal RV. Mild LA dilatation. FCAV without . MAC. Minimal MR. Mild TR. Moderate to large pericardial effusion without cardiac tamponade. - Current Medication List Current Medications: Active Medications Acetaminophen (Tylenol -) 650 mg PO Q4H PRN PRN Reason: PAIN 1-6 Aspirin (Asa -) 81 mg PO DAILY [facility] Last Admin: 12/06/19 10:27 Dose: 81 mg Documented by: Atorvastatin Calcium (Lipitor -) 20 mg PO [facility] Last Admin: 12/05/19 21:02 Dose: 20 mg Documented by: Chlorhexidine Gluconate (Hibiclens For Decolonization -) 1 applic TP [facility] Last Admin: 12/05/19 21:03 Dose: 1 applic Documented by: Dicyclomine HCl (Bentyl -) 10 mg PO Q6H PRN PRN Reason: MUSCLE SPASMS Last Admin: 12/05/19 21:03 Dose: 10 mg Documented by: Donepezil HCl (Aricept -) 10 mg PO DAILY [facility] Last Admin: 12/06/19 10:27 Dose: 10 mg Documented by: Dronabinol (Marinol -) 2.5 mg PO 1730 [facility] Last Admin: 12/05/19 18:12 Dose: 2.5 mg Documented by: Furosemide (Lasix Injection -) 40 mg IVPUSH BID@0600,1400 [facility] Last Admin: 12/06/19 14:28 Dose: 40 mg Documented by: Hydralazine HCl (Apresoline -) 50 mg PO TID [facility] Last Admin: 12/06/19 14:32 Dose: Not Given Documented by: Piperacillin Sod/Tazobactam (Sod 2.25 gm/ Dextrose) 50 mls @ 100 mls/hr IVPB Q8H-IV [facility]; Protocol Last Admin: 12/06/19 10:29 Dose: 100 mls/hr Documented by: Labetalol HCl (Normodyne -) 200 mg PO TID [facility] Last Admin: 12/06/19 14:31 Dose: Not Given Documented by: Levothyroxine Sodium (Synthroid -) 25 mcg PO DAILY@0700 [facility] Last Admin: 12/06/19 06:06 Dose: 25 mcg Documented by: Losartan Potassium (Cozaar -) 25 mg PO DAILY [facility] Memantine (Namenda -) 5 mg PO BID [facility] Last Admin: 12/06/19 10:28 Dose: 5 mg Documented by: Metoclopramide HCl (Reglan -) 10 mg PO TIDAC [facility] Last Admin: 12/06/19 10:30 Dose: 10 mg Documented by: Mirtazapine (Remeron -) 30 mg PO HS [facility] Last Admin: 12/05/19 21:03 Dose: 30 mg Documented by: Multivitamins/Minerals/Vitamin C (Tab-A-Vit -) 1 tab PO DAILY [facility] Last Admin: 12/06/19 10:29 Dose: 1 tab Documented by: Mupirocin (Bactroban Ointment (For Decolonization) -) 1 applic NS BID [facility] Stop: 12/09/19 09:59 Last Admin: 12/06/19 10:31 Dose: 1 applic Documented by: Nifedipine (Procardia Xl -) 120 mg PO DAILY [facility] Last Admin: 12/06/19 10:28 Dose: 120 mg Documented by: Pantoprazole Sodium (Protonix Iv) 40 mg IVPUSH DAILY [facility] Last Admin: 12/06/19 10:29 Dose: 40 mg Documented by: Polyethylene Glycol (Miralax (For Daily Use) -) 17 gm PO BID [facility] Last Admin: 12/06/19 10:31 Dose: 17 gm Documented by: Polysaccharide Iron Complex (Niferex-150 -) 150 mg PO DAILY [facility] Last Admin: 12/06/19 10:28 Dose: 150 mg Documented by: Potassium Chloride (K-Dur -) 40 meq PO DAILY [facility] Last Admin: 12/06/19 10:27 Dose: 40 meq Documented by: Senna (Senna -) 2 tab PO HS PRN PRN Reason: CONSTIPATION - Objective Vital Signs: Vital Signs Temperature 98.9 F 12/06/19 08:00 Pulse Rate 56 L 12/06/19 14:00 Respiratory Rate 12 12/06/19 14:00 Blood Pressure 108/36 L 12/06/19 14:00 O2 Sat by Pulse Oximetry (%) 100 12/06/19 08:00 General: Well developed. Poorly nourished. Chronic ill and frail. No acute distress. Head: Normocephalic. Atraumatic, Eyes: PERRLA, EOMI. Sclerae anicteric. Conjunctivae clear. Neck: Supple. (+) JVD. No bruits. Heart: Normal S1, S2: Regular rhythm and rate. No murmur. No gallop or rub. Lungs: Decrease BS at bases. Bibasilar crackles. No wheezing or rhonchi. Abdomen: Soft. Bowel sound positive. Non tender. No masses. Extremities: No edema. No clubbing or cyanosis. PD 2+, equal bilaterally Labs: CBC, BMP 12/06/19 05:35 12/06/19 05:35 Assessment/Plan 79 year old woman with a PMHx of HTN, DM, hyperlipidemia, diastolic CHF, moderate to large pericardial effusion without cardiac tamponade on echo 11/23/2019, Parkinson's disease, dementia, CVA, recent admission to [facility] for UTI/CHF (discharged on 12/02/19) readmitted 12/03/19 with shortness of breath. CXR 12/04/19 showed progressive worsening bilateral effusion, congestion and infiltrates. BNP is severely elevated. Troponin is elevated in the setting of JASPER and acute CHF. ECG 12/04/19: Sinus rhythm. LAD. Minor non-specific ST-T changes. Echo 12/04/19: Limited study. Small pericardial effusion (<1cm) without cardiac tamponade. When compared with previous echo on 11/24/19, pericardial effusion is reduced. Echo 11/24/19: LVEF 50-55%. Normal RV. Mild LA dilatation. FCAV without . MAC. Minimal MR. Mild TR. Moderate to large pericardial effusion without cardiac tamponade. 1) Acute on chronic diastolic CHF: Worsening dyspnea may be also contributed by superimposed bacterial pneumonia. May change IV Lasix to PO 40 mg BID. Monitor daily electrolytes, renal function and body weight. Continue IV Abx as per critical care and ID. 2) Elevated troponin, likely demand ischemia in the setting of acute CHF and JASPER. No acute ECG changes of ischemia. May hold and reduce labetalol due to bradycardia. Continue aspirin, and atorvastatin. 3) Pericardial effusion: Markedly reduced from the repeat echocardiogram on 12/04/19. Diuresis therapy could prevent reaccumulating pericardial effusion. We will follow the patient with you.
--- NOTE | 2019-12-06 16:21 | PN.GI ---
GI Progress Note Subjective: Following up on 79 year old female with PMH of CHF, diverticulosis, gastritis admitted with exacerbation of CHF, pericardial effusion, c/o lower abdominal pain. The pt is a poor informant. She denies abdominal pain. There were no reports of nausea, vomiting, melena and rectal bleeding. Her last colonoscopy was in 2018, which revealed diverticulosis. - Objective Vital Signs: Vital Signs Temperature 98.9 F 12/06/19 08:00 Pulse Rate 56 L 12/06/19 14:00 Respiratory Rate 12 12/06/19 14:00 Blood Pressure 108/36 L 12/06/19 14:00 O2 Sat by Pulse Oximetry (%) 100 12/06/19 08:00 Constitutional: No Distress, Calm Eyes: Yes: Conjunctiva Clear. No: Sclera Icterus HENT: Yes: Atraumatic Neck: Yes: Supple Cardiovascular: Yes: Regular Rate and Rhythm Respiratory: Yes: Regular, CTA Bilaterally Gastrointestinal Inspection: No: Distention ...Palpate: Yes: Soft. No: Firm/Rigid, Guarding, Hepatomegaly, Mass, Pulsatile Mass, Splenomegaly, Tenderness Labs: CBC, BMP 12/06/19 05:35 12/06/19 05:35 Problem List - Problems (1) Abdominal pain Assessment/Plan: r/o secondary to ischemia, SIBO, diverticular spasm FUA- with no sign of obstruction keep hydrated advance diet as tolerated maintain on PPI plain CT to r/o ischemia as pt will not tolerate PO contrast Code(s): R10.9 - UNSPECIFIED ABDOMINAL PAIN Qualifiers: Abdominal location: generalized Qualified Code(s): R10.84 - Generalized abdominal pain
[2019-12-06] MEDS: DRONABINOL 2.5 MG CAPSULE PO SCH ×2 (17:07→17:51)
[2019-12-06] MEDS ORDERED: DICYCLOMINE HCL 10 MG CAPSULE PO PRN (19:39)
[2019-12-06] MEDS ORDERED: SENNOSIDES 8.6MG TABLET (FP) PO PRN (19:39)
[2019-12-06] MEDS: ACETAMINOPHEN 325 MG TABLET (FP) PO PRN (21:53)
[2019-12-06] MEDS: CHLORHEXIDINE GLUCONATE 4% CLEANSER FOR DECOLONIZATION TP SCH (21:53)
[2019-12-06] MEDS: ATORVASTATIN CA 20 MG TABLET (FP) PO SCH (21:54)
[2019-12-06] MEDS: MIRTAZAPINE 15 MG TABLET (FP) PO SCH (21:55)
[2019-12-07] MEDS: FUROSEMIDE 40 MG/4 ML INJECTABLE VIAL IVPUSH SCH ×2 (05:50→13:52)
[2019-12-07] MEDS: LABETALOL HCL 200 MG TABLET (FP) PO SCH ×3 (05:54→21:39)
[2019-12-07] MEDS: hydrALAZINE HCL 50 MG TABLET (FP) PO SCH ×3 (05:54→21:39)
[2019-12-07] MEDS: METOCLOPRAMIDE HCL 10 MG TABLET (FP) PO SCH ×3 (05:59→17:23)
[2019-12-07] MEDS: LEVOTHYROXINE NA 25 MCG TABLET (FP) PO SCH (05:59)
[2019-12-07] MEDS ORDERED: ONDANSETRON 4 MG/2 ML VIAL IVPUSH ONE (06:28)
[2019-12-07] MEDS ORDERED: ONDANSETRON 4 MG/2 ML VIAL ONE (06:45)
[2019-12-07 07:43] LABS: BASO % 0.5 % (0-2.0); EOS % 8.4 % (0-4.5); HEMATOCRIT 26.6 % (32.4-45.2); HEMOGLOBIN 8.8 GM/dL (10.7-15.3); LYMPH % 3.9 % (8-40); MCH 27.5 pg (25.7-33.7); MCHC 33.3 g/dl (32.0-36.0); MEAN CELL VOLUME 82.7 fl (80-96); MEAN PLT VOLUME 7.3 fl (7.5-11.1); MONO % 11.8 % (3.8-10.2); NEUT % 75.4 % (42.8-82.8); PLATELET COUNT 314 K/MM3 (134-434); RBC 3.22 M/mm3 (3.60-5.2); RDW 17.6 % (11.6-15.6); WHITE BLOOD COUNT 9.5 K/mm3 (4.0-10.0)
[2019-12-07] MEDS ORDERED: PT OWN MED DRAWER 7, Y5N ONE ×4 (08:16→21:13)
[2019-12-07 08:22] LABS: ALBUMIN 2.4 g/dl (3.4-5.0); BLOOD UREA NITROGEN 51.4 mg/dL (7-18); CALCIUM 8.3 mg/dL (8.5-10.1); MAGNESIUM 1.9 mg/dL (1.8-2.4); POTASSIUM 3.9 mmol/L (3.5-5.1)
[2019-12-07 08:25] LABS: BILIRUBIN,TOTAL 0.5 mg/dL (0.2-1); CREATININE 2.9 mg/dL (0.55-1.3); TOT PROT 5.3 g/dl (6.4-8.2)
[2019-12-07] MEDS ORDERED: LOSARTAN POTASSIUM 50 MG TABLET (FP) PO SCH (10:00)
[2019-12-07] MEDS: NIFEdipine E.R 60 MG TABLET PO SCH (10:19)
[2019-12-07] MEDS: PANTOPRAZOLE SODIUM 40 MG VIAL IVPUSH SCH (10:20)
[2019-12-07] MEDS: ASPIRIN 81 MG CHEWABLE TABLETS PO SCH (10:20)
[2019-12-07] MEDS: MEMANTINE HCL 5 MG TABLET (UD) PO SCH ×2 (10:20→21:41)
[2019-12-07] MEDS: MULTIVITAMINS (DAILY MVI) TABLET (FP) PO SCH (10:20)
[2019-12-07] MEDS: IRON POLYSACCHARIDES 150 MG CAPSULE PO SCH (10:20)
[2019-12-07] MEDS: POTASSIUM CHLORIDE TABS 20 MEQ TABLET.ER (FP) PO SCH (10:21)
[2019-12-07] MEDS: POLYETHYLENE GLYCOL 3350 119 GM BTL PO SCH ×2 (10:21→21:40)
[2019-12-07] MEDS: MUPIROCIN 2% TOPICAL OINTMENT FOR DECOLONIZATION NS SCH (10:21)
--- NOTE | 2019-12-07 11:00 | PN ---
Progress Note, Physician Chief Complaint: Hypoxia Shortness of breath CHF Pericardial effusion Elevated troponins Anemia Pneumonia History of Present Illness: 79 year old female, discharged from recent hospitalization on 12/02/19 for UTI and moderate pericardial effusion, returned 24 hours later with SOB, hypoxia, BIBEMS admitted with SOB, hypoxia, CHF, elevated troponin. Last echo + moderate pericardia effusion w/o any evidence of cardiac tamponade, repeat echo 12/04/19 showed small pericardial effusion, CXR + pleural effusion + possible bibasilar infiltrates. Started on IV azithro+ Zosyn, evaluated by ID. At home she is on Hydralazine 50 mg po TID + Labetalol 200 mg po TID+ Nifedapine 120 mg po daily + Torsemide 40 mg po daily. Upon admission, pt was started on IV furosemide 40 mg BID + Hydralazine+ labeta lol -same dose. 12/06/19 NAD More awake and alert Denies any abd pain Still with low appetite - Current Medication List Current Medications: Active Medications Acetaminophen (Tylenol -) 650 mg PO Q4H PRN PRN Reason: PAIN 1-6 Last Admin: 12/06/19 21:53 Dose: 650 mg Documented by: Aspirin (Asa -) 81 mg PO DAILY [facility] Last Admin: 12/07/19 10:20 Dose: 81 mg Documented by: Atorvastatin Calcium (Lipitor -) 20 mg PO HS [facility] Last Admin: 12/06/19 21:54 Dose: 20 mg Documented by: Chlorhexidine Gluconate (Hibiclens For Decolonization -) 1 applic TP HS [facility] Last Admin: 12/06/19 21:53 Dose: 1 applic Documented by: Dicyclomine HCl (Bentyl -) 10 mg PO Q6H PRN PRN Reason: MUSCLE SPASMS Last Admin: 12/07/19 10:21 Dose: 10 mg Documented by: Donepezil HCl (Aricept -) 10 mg PO DAILY [facility] Last Admin: 12/06/19 10:27 Dose: 10 mg Documented by: Dronabinol (Marinol -) 2.5 mg PO 1730 [facility] Last Admin: 12/06/19 17:51 Dose: Not Given Documented by: Furosemide (Lasix Injection -) 40 mg IVPUSH BID@0600,1400 [facility] Last Admin: 12/07/19 05:50 Dose: 40 mg Documented by: Hydralazine HCl (Apresoline -) 50 mg PO TID [facility] Last Admin: 12/07/19 05:54 Dose: 50 mg Documented by: Labetalol HCl (Normodyne -) 200 mg PO TID [facility] Last Admin: 12/07/19 05:54 Dose: 200 mg Documented by: Levothyroxine Sodium (Synthroid -) 25 mcg PO DAILY@0700 [facility] Last Admin: 12/07/19 05:59 Dose: 25 mcg Documented by: Memantine (Namenda -) 5 mg PO BID [facility] Last Admin: 12/07/19 10:20 Dose: 5 mg Documented by: Metoclopramide HCl (Reglan -) 10 mg PO TIDAC [facility] Last Admin: 12/07/19 05:59 Dose: 10 mg Documented by: Mirtazapine (Remeron -) 30 mg PO HS [facility] Last Admin: 12/06/19 21:55 Dose: 30 mg Documented by: Multivitamins/Minerals/Vitamin C (Tab-A-Vit -) 1 tab PO DAILY [facility] Last Admin: 12/07/19 10:20 Dose: 1 tab Documented by: Mupirocin (Bactroban Ointment (For Decolonization) -) 1 applic NS BID [facility] Stop: 12/09/19 09:59 Last Admin: 12/07/19 10:21 Dose: 1 applic Documented by: Nifedipine (Procardia Xl -) 120 mg PO DAILY [facility] Last Admin: 12/07/19 10:19 Dose: 120 mg Documented by: Pantoprazole Sodium (Protonix Iv) 40 mg IVPUSH DAILY [facility] Last Admin: 12/07/19 10:20 Dose: 40 mg Documented by: Polyethylene Glycol (Miralax (For Daily Use) -) 17 gm PO BID [facility] Last Admin: 12/07/19 10:21 Dose: 17 gm Documented by: Polysaccharide Iron Complex (Niferex-150 -) 150 mg PO DAILY [facility] Last Admin: 12/07/19 10:20 Dose: 150 mg Documented by: Potassium Chloride (K-Dur -) 40 meq PO DAILY [facility] Last Admin: 12/07/19 10:21 Dose: 40 meq Documented by: Senna (Senna -) 2 tab PO HS PRN PRN Reason: CONSTIPATION - Objective Vital Signs: Vital Signs Temperature 98.2 F 12/07/19 04:00 Pulse Rate 66 12/07/19 04:00 Respiratory Rate 20 12/07/19 04:00 Blood Pressure 184/73 H 12/07/19 04:00 O2 Sat by Pulse Oximetry (%) 99 12/07/19 04:00 Constitutional: Yes: Well Nourished, No Distress, Calm Cardiovascular: Yes: Regular Rate and Rhythm Respiratory: Yes: Regular, On Nasal O2, Rales (BLL) Gastrointestinal: Yes: Soft, Hypoactive Bowel Sounds Genitourinary: Yes: Schultz Present Musculoskeletal: Yes: Muscle Weakness Extremities: Yes: WNL Edema: No Peripheral Pulses WNL: Yes Neurological: Yes: Alert, Oriented Psychiatric: Yes: Alert, Oriented Labs: CBC, BMP 12/07/19 07:16 12/07/19 07:16 Problem List - Problems (1) SOB (shortness of breath) Assessment/Plan: -2/2 to acute CHF vs Pneumonia -Nasal O2 to keep SpO2>90% -IV diuresis -Pulmonary consult -COVID 19 PCR negative 11/23/19 Problems reviewed: Yes Code(s): R06.02 - SHORTNESS OF BREATH (2) Acute on chronic diastolic heart failure Assessment/Plan: -Cardiology consult -IV Furosemide 40 mg BID -Continue labetalol 200 mg PO TID -Continue hydralazine 50 mg po TID -Restart Nifedipine 120 mg Problems reviewed: Yes Code(s): I50.33 - ACUTE ON CHRONIC DIASTOLIC (CONGESTIVE) HEART FAILURE (3) Elevated troponin Assessment/Plan: -Likely demand ischemia Problems reviewed: Yes Code(s): R74.8 - ABNORMAL LEVELS OF OTHER SERUM ENZYMES (4) Acute on chronic renal failure Assessment/Plan: -Nephrology consult -Monitor Cr Trend -Baseline Cr at 1.8-2.2 Problems reviewed: Yes Code(s): N17.9 - ACUTE KIDNEY FAILURE, UNSPECIFIED; N18.9 - CHRONIC KIDNEY DISEASE, UNSPECIFIED (5) Anemia Assessment/Plan: -Chronic -OLINDA -Continue iron polysaccharide 150 mg po daily -Monitor H/h Problems reviewed: Yes Code(s): D64.9 - ANEMIA, UNSPECIFIED (6) Dementia Assessment/Plan: -Continue Memantine + donepezil Problems reviewed: Yes Code(s): F03.90 - UNSPECIFIED DEMENTIA WITHOUT BEHAVIORAL DISTURBANCE (7) HTN (hypertension) Assessment/Plan: -As above Problems reviewed: Yes Code(s): I10 - ESSENTIAL (PRIMARY) HYPERTENSION (8) Hypokalemia Assessment/Plan: -2/2 to decreased po intake and diuresis -KCL 40 meq po daily -monitor trend Problems reviewed: Yes Code(s): E87.6 - HYPOKALEMIA (9) Abdominal pain Assessment/Plan: -CTAP from 11/23/19 was unremarkable -GI consult -Dicyclomine PRN -Reglan TID AC -PPI Problems reviewed: Yes Code(s): R10.9 - UNSPECIFIED ABDOMINAL PAIN Qualifiers: Abdominal location: generalized Qualified Code(s): R10.84 - Generalized abdominal pain Assessment/Plan See problem list
--- NOTE | 2019-12-07 13:13 | PN ---
Progress Note (short form) - Note Progress Note: PULMONARY Denies shortness of breath, chest pain. Vital Signs Period Temp Pulse Resp BP Sys/East Pulse Ox Last 24 Hr 98.2 F-99 F 55-61 12-18 96-163/38-61 97-100 Intake & Output 12/03/19 12/04/19 12/05/19 12/06/19 23:59 23:59 23:59 23:59 Intake Total 1718 506 120 Output Total 70 550 300 320 Balance -70 1168 206 -200 Weight 72.575 kg 59.194 kg 58.967 kg 59.647 kg Gen: NAD at rest Heart: RRR Lung: decreased breath sounds at the bases Abd: soft, nontender Ext: no edema CBC, BMP 12/06/19 05:35 12/06/19 05:35 Active Medications Acetaminophen (Tylenol -) 650 mg PO Q4H PRN PRN Reason: PAIN 1-6 Aspirin (Asa -) 81 mg PO DAILY [facility] Last Admin: 12/06/19 10:27 Dose: 81 mg Documented by: Atorvastatin Calcium (Lipitor -) 20 mg PO HS [facility] Last Admin: 12/05/19 21:02 Dose: 20 mg Documented by: Chlorhexidine Gluconate (Hibiclens For Decolonization -) 1 applic TP [facility] Last Admin: 12/05/19 21:03 Dose: 1 applic Documented by: Dicyclomine HCl (Bentyl -) 10 mg PO Q6H PRN PRN Reason: MUSCLE SPASMS Last Admin: 12/05/19 21:03 Dose: 10 mg Documented by: Donepezil HCl (Aricept -) 10 mg PO DAILY [facility] Last Admin: 12/06/19 10:27 Dose: 10 mg Documented by: Dronabinol (Marinol -) 2.5 mg PO 1730 [facility] Last Admin: 12/05/19 18:12 Dose: 2.5 mg Documented by: Furosemide (Lasix Injection -) 40 mg IVPUSH BID@0600,1400 [facility] Last Admin: 12/06/19 06:06 Dose: 40 mg Documented by: Hydralazine HCl (Apresoline -) 50 mg PO TID [facility] Last Admin: 12/06/19 06:06 Dose: 50 mg Documented by: Piperacillin Sod/Tazobactam (Sod 2.25 gm/ Dextrose) 50 mls @ 100 mls/hr IVPB Q8H-IV [facility]; Protocol Last Admin: 12/06/19 10:29 Dose: 100 mls/hr Documented by: Potassium Chloride (Potassium Chloride 10 Meq Premix Ivpb -) 10 meq in 100 mls @ 100 mls/hr IVPB Q60M [facility] Stop: 12/06/19 14:44 Labetalol HCl (Normodyne -) 200 mg PO TID [facility] Last Admin: 12/06/19 06:06 Dose: 200 mg Documented by: Levothyroxine Sodium (Synthroid -) 25 mcg PO DAILY@0700 [facility] Last Admin: 12/06/19 06:06 Dose: 25 mcg Documented by: Memantine (Namenda -) 5 mg PO BID [facility] Last Admin: 12/06/19 10:28 Dose: 5 mg Documented by: Metoclopramide HCl (Reglan -) 10 mg PO TIDAC [facility] Last Admin: 12/06/19 10:30 Dose: 10 mg Documented by: Mirtazapine (Remeron -) 30 mg PO HS [facility] Last Admin: 12/05/19 21:03 Dose: 30 mg Documented by: Multivitamins/Minerals/Vitamin C (Tab-A-Vit -) 1 tab PO DAILY [facility] Last Admin: 12/06/19 10:29 Dose: 1 tab Documented by: Mupirocin (Bactroban Ointment (For Decolonization) -) 1 applic NS BID [facility] Stop: 12/09/19 09:59 Last Admin: 12/06/19 10:31 Dose: 1 applic Documented by: Nifedipine (Procardia Xl -) 120 mg PO DAILY [facility] Last Admin: 12/06/19 10:28 Dose: 120 mg Documented by: Pantoprazole Sodium (Protonix Iv) 40 mg IVPUSH DAILY [facility] Last Admin: 12/06/19 10:29 Dose: 40 mg Documented by: Polyethylene Glycol (Miralax (For Daily Use) -) 17 gm PO BID [facility] Last Admin: 12/06/19 10:31 Dose: 17 gm Documented by: Polysaccharide Iron Complex (Niferex-150 -) 150 mg PO DAILY [facility] Last Admin: 12/06/19 10:28 Dose: 150 mg Documented by: Potassium Chloride (K-Dur -) 40 meq PO DAILY [facility] Last Admin: 12/06/19 10:27 Dose: 40 meq Documented by: Jr (Jr -) 2 tab PO HS PRN PRN Reason: CONSTIPATION ASSESSMENT AND PLAN: Hypertensive Urgency resolved Acute on Chronic Diastolic Heart Failure UTI Pleural Effusions from above Pericardial Effusion +Troponins likely Demand Ischemia HTN Hyperlipidemia DM Hypothyroidism CKD Anemia Parkinsons Dementia - antibiotics per ID - titrate BP meds - O2 to keep SpO2 >90% - continue lasix - monitor urine output, creatinine - DVT prophylaxis
[2019-12-07] MEDS: DONEPEZIL HCL 10 MG TABLET (FP) PO SCH (13:51)
--- NOTE | 2019-12-07 14:03 | PN ---
Progress Note, Physician History of Present Illness: Pt seen and examined at bedside. She is awake and alert. She denies shortness of breath. - Current Medication List Current Medications: Active Medications Acetaminophen (Tylenol -) 650 mg PO Q4H PRN PRN Reason: PAIN 1-6 Last Admin: 12/06/19 21:53 Dose: 650 mg Documented by: Aspirin (Asa -) 81 mg PO DAILY [facility] Last Admin: 12/07/19 10:20 Dose: 81 mg Documented by: Atorvastatin Calcium (Lipitor -) [address] [facility] Last Admin: 12/06/19 21:54 Dose: 20 mg Documented by: Chlorhexidine Gluconate (Hibiclens For Decolonization -) [address] [facility] Last Admin: 12/06/19 21:53 Dose: 1 applic Documented by: Dicyclomine HCl (Bentyl -) 10 mg PO Q6H PRN PRN Reason: MUSCLE SPASMS Last Admin: 12/07/19 10:21 Dose: 10 mg Documented by: Donepezil HCl (Aricept -) 10 mg PO DAILY [facility] Last Admin: 12/07/19 13:51 Dose: 10 mg Documented by: Dronabinol (Marinol -) 2.5 mg PO 1730 [facility] Last Admin: 12/06/19 17:51 Dose: Not Given Documented by: Furosemide (Lasix Injection -) 40 mg IVPUSH BID@0600,1400 [facility] Last Admin: 12/07/19 13:52 Dose: 40 mg Documented by: Hydralazine HCl (Apresoline -) 50 mg PO TID [facility] Last Admin: 12/07/19 13:52 Dose: 50 mg Documented by: Labetalol HCl (Normodyne -) 200 mg PO TID [facility] Last Admin: 12/07/19 13:52 Dose: 200 mg Documented by: Levothyroxine Sodium (Synthroid -) 25 mcg PO DAILY@0700 [facility] Last Admin: 12/07/19 05:59 Dose: 25 mcg Documented by: Memantine (Namenda -) 5 mg PO BID [facility] Last Admin: 12/07/19 10:20 Dose: 5 mg Documented by: Metoclopramide HCl (Reglan -) 10 mg PO TIDAC [facility] Last Admin: 12/07/19 11:00 Dose: 10 mg Documented by: Mirtazapine (Remeron -) [address] [facility] Last Admin: 12/06/19 21:55 Dose: 30 mg Documented by: Multivitamins/Minerals/Vitamin C (Tab-A-Vit -) 1 tab PO DAILY [facility] Last Admin: 12/07/19 10:20 Dose: 1 tab Documented by: Mupirocin (Bactroban Ointment (For Decolonization) -) 1 applic NS BID [facility] Stop: 12/09/19 09:59 Last Admin: 12/07/19 10:21 Dose: 1 applic Documented by: Nifedipine (Procardia Xl -) 120 mg PO DAILY [facility] Last Admin: 12/07/19 10:19 Dose: 120 mg Documented by: Pantoprazole Sodium (Protonix Iv) 40 mg IVPUSH DAILY [facility] Last Admin: 12/07/19 10:20 Dose: 40 mg Documented by: Polyethylene Glycol (Miralax (For Daily Use) -) 17 gm PO BID [facility] Last Admin: 12/07/19 10:21 Dose: 17 gm Documented by: Polysaccharide Iron Complex (Niferex-150 -) 150 mg PO DAILY [facility] Last Admin: 12/07/19 10:20 Dose: 150 mg Documented by: Potassium Chloride (K-Dur -) 40 meq PO DAILY [facility] Last Admin: 12/07/19 10:21 Dose: 40 meq Documented by: Senna (Senna -) 2 tab PO HS PRN PRN Reason: CONSTIPATION - Objective Vital Signs: Vital Signs Temperature 97.4 F L 12/07/19 13:17 Pulse Rate 60 12/07/19 13:17 Respiratory Rate 20 12/07/19 13:17 Blood Pressure 130/54 L 12/07/19 13:17 O2 Sat by Pulse Oximetry (%) 97 12/07/19 12:00 Constitutional: Yes: Calm Eyes: Yes: Conjunctiva Clear HENT: Yes: Atraumatic Neck: Yes: Supple Cardiovascular: Yes: S1, S2 Respiratory: Yes: CTA Bilaterally Gastrointestinal: Yes: Normal Bowel Sounds, Soft Genitourinary: Yes: WNL Musculoskeletal: Yes: WNL Edema: No Neurological: Yes: Oriented Psychiatric: Yes: Oriented Labs: CBC, BMP 12/07/19 07:16 12/07/19 07:16 Problem List - Problems (1) JASPER (acute kidney injury) Code(s): N17.9 - ACUTE KIDNEY FAILURE, UNSPECIFIED (2) CHF (congestive heart failure) Code(s): I50.9 - HEART FAILURE, UNSPECIFIED Qualifiers: Heart failure type: unspecified Heart failure chronicity: acute on chronic Qualified Code(s): I50.9 - Heart failure, unspecified (3) CKD (chronic kidney disease) Code(s): N18.9 - CHRONIC KIDNEY DISEASE, UNSPECIFIED Qualifiers: Chronic kidney disease stage: stage 5, not on chronic dialysis Qualified Code(s): N18.5 - Chronic kidney disease, stage 5 Assessment/Plan Current Medications Generic Name Dose Route Start Last Admin Trade Name Freq PRN Reason Stop Dose Admin Acetaminophen 650 mg 12/06/19 19:39 12/06/19 21:53 Tylenol - PO 650 mg Q4H PRN Administration PAIN 1-6 Aspirin 81 mg 12/07/19 10:00 12/07/19 10:20 Asa - PO 81 mg DAILY [facility] Administration Atorvastatin Calcium 20 mg 12/05/19 22:00 12/06/19 21:54 Lipitor - PO 20 mg HS [facility] Administration Chlorhexidine Gluconate 1 applic 12/06/19 22:00 12/06/19 21:53 Hibiclens For Decolonization - TP 1 applic HS [facility] Administration Dicyclomine HCl 10 mg 12/06/19 19:39 12/07/19 10:21 Bentyl - PO 10 mg Q6H PRN Administration MUSCLE SPASMS Donepezil HCl 10 mg 12/05/19 10:30 12/07/19 13:51 Aricept - PO 10 mg DAILY [facility] Administration Dronabinol 2.5 mg 12/05/19 17:30 12/06/19 17:51 Marinol - PO Not Given 1730 [facility] Furosemide 40 mg 12/07/19 06:00 12/07/19 13:52 Lasix Injection - IVPUSH 40 mg BID@0600,1400 [facility] Administration Hydralazine HCl 50 mg 12/06/19 22:00 12/07/19 13:52 Apresoline - PO 50 mg TID [facility] Administration Labetalol HCl 200 mg 12/06/19 22:00 12/07/19 13:52 Normodyne - PO 200 mg TID [facility] Administration Levothyroxine Sodium 25 mcg 12/07/19 07:00 12/07/19 05:59 Synthroid - PO 25 mcg DAILY@0700 [facility] Administration Memantine 5 mg 12/06/19 22:00 12/07/19 10:20 Namenda - PO 5 mg BID [facility] Administration Metoclopramide HCl 10 mg 12/05/19 11:00 12/07/19 11:00 Reglan - PO 10 mg TIDAC [facility] Administration Mirtazapine 30 mg 12/06/19 22:00 12/06/19 21:55 Remeron - PO 30 mg HS [facility] Administration Multivitamins/Minerals/Vitamin C 1 tab 12/05/19 10:30 12/07/19 10:20 Tab-A-Vit - PO 1 tab DAILY [facility] Administration Mupirocin 1 applic 12/06/19 22:00 12/07/19 10:21 Bactroban Ointment (For Decolonization) - NS 12/09/19 09:59 1 applic BID [facility] Administration Nifedipine 120 mg 12/05/19 10:15 12/07/19 10:19 Procardia Xl - PO 120 mg DAILY [facility] Administration Pantoprazole Sodium 40 mg 12/07/19 10:00 12/07/19 10:20 Protonix Iv IVPUSH 40 mg DAILY [facility] Administration Polyethylene Glycol 17 gm 12/06/19 22:00 12/07/19 10:21 Miralax (For Daily Use) - PO 17 gm BID [facility] Administration Polysaccharide Iron Complex 150 mg 12/05/19 10:30 12/07/19 10:20 Niferex-150 - PO 150 mg DAILY [facility] Administration Potassium Chloride 40 meq 12/05/19 10:00 12/07/19 10:21 K-Dur - PO 40 meq DAILY [facility] Administration Senna 2 tab 12/06/19 19:39 Senna - PO HS PRN CONSTIPATION Impression 1. JASPER 2. CKD 3. HLD 4. diverticulosis 5. HTN 6. DM 7. proteinuria 8. hypoalbuminemia 9. UTI 10. pleural effusion 11. chf 12. pericardial effusion without tamponade 13. fluid overload Impression - monitor bp - monitor renal function - cont lasix - low dose losartan and monitor lytes
--- NOTE | 2019-12-07 14:26 | PN ---
Progress Note, Physician Chief Complaint: AWAKE EATING BREAKFAST WANTS TO GO HOME AWAITING GI WORKUP - Current Medication List Current Medications: Active Medications Acetaminophen (Tylenol -) 650 mg PO Q4H PRN PRN Reason: PAIN 1-6 Last Admin: 12/06/19 21:53 Dose: 650 mg Documented by: Aspirin (Asa -) 81 mg PO DAILY [facility] Last Admin: 12/07/19 10:20 Dose: 81 mg Documented by: Atorvastatin Calcium (Lipitor -) 20 mg PO [facility] Last Admin: 12/06/19 21:54 Dose: 20 mg Documented by: Chlorhexidine Gluconate (Hibiclens For Decolonization -) 1 applic TP [facility] Last Admin: 12/06/19 21:53 Dose: 1 applic Documented by: Dicyclomine HCl (Bentyl -) 10 mg PO Q6H PRN PRN Reason: MUSCLE SPASMS Last Admin: 12/07/19 10:21 Dose: 10 mg Documented by: Donepezil HCl (Aricept -) 10 mg PO DAILY [facility] Last Admin: 12/07/19 13:51 Dose: 10 mg Documented by: Dronabinol (Marinol -) 2.5 mg PO 1730 [facility] Last Admin: 12/06/19 17:51 Dose: Not Given Documented by: Furosemide (Lasix -) 40 mg PO BID@0600,1400 [facility] Hydralazine HCl (Apresoline -) 50 mg PO TID [facility] Last Admin: 12/07/19 13:52 Dose: 50 mg Documented by: Labetalol HCl (Normodyne -) 200 mg PO TID [facility] Last Admin: 12/07/19 13:52 Dose: 200 mg Documented by: Levothyroxine Sodium (Synthroid -) 25 mcg PO DAILY@0700 [facility] Last Admin: 12/07/19 05:59 Dose: 25 mcg Documented by: Losartan Potassium (Cozaar -) 25 mg PO DAILY [facility] Memantine (Namenda -) 5 mg PO BID [facility] Last Admin: 12/07/19 10:20 Dose: 5 mg Documented by: Metoclopramide HCl (Reglan -) 10 mg PO TIDAC [facility] Last Admin: 12/07/19 11:00 Dose: 10 mg Documented by: Mirtazapine (Remeron -) 30 mg PO [facility] Last Admin: 12/06/19 21:55 Dose: 30 mg Documented by: Multivitamins/Minerals/Vitamin C (Tab-A-Vit -) 1 tab PO DAILY [facility] Last Admin: 12/07/19 10:20 Dose: 1 tab Documented by: Mupirocin (Bactroban Ointment (For Decolonization) -) 1 applic NS BID [facility] Stop: 12/09/19 09:59 Last Admin: 12/07/19 10:21 Dose: 1 applic Documented by: Nifedipine (Procardia Xl -) 120 mg PO DAILY [facility] Last Admin: 12/07/19 10:19 Dose: 120 mg Documented by: Pantoprazole Sodium (Protonix Iv) 40 mg IVPUSH DAILY [facility] Last Admin: 12/07/19 10:20 Dose: 40 mg Documented by: Polyethylene Glycol (Miralax (For Daily Use) -) 17 gm PO BID [facility] Last Admin: 12/07/19 10:21 Dose: 17 gm Documented by: Polysaccharide Iron Complex (Niferex-150 -) 150 mg PO DAILY [facility] Last Admin: 12/07/19 10:20 Dose: 150 mg Documented by: Potassium Chloride (K-Dur -) 40 meq PO DAILY [facility] Last Admin: 12/07/19 10:21 Dose: 40 meq Documented by: Senna (Senna -) 2 tab PO HS PRN PRN Reason: CONSTIPATION - Objective Vital Signs: Vital Signs Temperature 97.4 F L 12/07/19 13:17 Pulse Rate 60 12/07/19 13:17 Respiratory Rate 20 12/07/19 13:17 Blood Pressure 130/54 L 12/07/19 13:17 O2 Sat by Pulse Oximetry (%) 97 12/07/19 12:00 Constitutional: Yes: Mild Distress Cardiovascular: Yes: Pulse Irregular Respiratory: Yes: Diminished Gastrointestinal: Yes: Soft Genitourinary: Yes: Incontinence Musculoskeletal: Yes: Muscle Weakness Edema: No Wound/Incision: Yes: Clean/Dry Neurological: Yes: Other Labs: CBC, BMP 12/07/19 07:16 12/07/19 07:16 Problem List - Problems (1) Acute on chronic renal failure Code(s): N17.9 - ACUTE KIDNEY FAILURE, UNSPECIFIED; N18.9 - CHRONIC KIDNEY DISEASE, UNSPECIFIED (2) CHF (congestive heart failure) Code(s): I50.9 - HEART FAILURE, UNSPECIFIED Qualifiers: Heart failure type: unspecified Heart failure chronicity: acute on chronic Qualified Code(s): I50.9 - Heart failure, unspecified (3) NSTEMI (non-ST elevated myocardial infarction) Code(s): I21.4 - NON-ST ELEVATION (NSTEMI) MYOCARDIAL INFARCTION (4) SOB (shortness of breath) Code(s): R06.02 - SHORTNESS OF BREATH (5) Abdominal pain Code(s): R10.9 - UNSPECIFIED ABDOMINAL PAIN Qualifiers: Abdominal location: generalized Qualified Code(s): R10.84 - Generalized abdominal pain (6) Acute on chronic diastolic heart failure Code(s): I50.33 - ACUTE ON CHRONIC DIASTOLIC (CONGESTIVE) HEART FAILURE (7) Anemia Code(s): D64.9 - ANEMIA, UNSPECIFIED (8) Diabetes mellitus with autonomic neuropathy Code(s): E11.43 - TYPE 2 DIABETES W DIABETIC AUTONOMIC (POLY)NEUROPATHY Assessment/Plan RENAL FUNCTION F/U WITH NEPHROLOGY CHECK LABS ANEMIA WORKUP GI CT ORDERED ON TELEMETRY CARDIO EVAL ISCHEMIA ST DEPRESSIONS VS CHF CHRONIC/ACUTE PT EVAL GOALS OF CARE
--- NOTE | 2019-12-07 15:34 | PN ---
Progress Note, Physician Chief Complaint: The patient was appears comfortable. She has improved abdominal discomfort. No SOB at rest or chest pain. Tele shows sinus bradycardia, at 57 BPM. 45-65 BPM. Non-conducted APCs noted. History of Present Illness: 79 year old woman with a PMHx of HTN, DM, hyperlipidemia, diastolic CHF, moderate to large pericardial effusion without cardiac tamponade on echo 11/23/2019, Parkinson's disease, dementia, CVA, recent admission to [place] for UTI/CHF (discharged on 12/02/19) readmitted 12/03/19 with shortness of breath. CXR 12/04/19 showed progressive worsening bilateral effusion, congestion and infiltrates. BNP is severely elevated. Troponin is elevated in the setting of JASPER and acute CHF. ECG 12/04/19: Sinus rhythm. LAD. Minor non-specific ST-T changes. Echo 12/04/19: Limited study. Small pericardial effusion (<1cm) without cardiac tamponade. When compared with previous echo on 11/24/19, pericardial effusion is reduced. Echo 11/24/19: LVEF 50-55%. Normal RV. Mild LA dilatation. FCAV without . MAC. Minimal MR. Mild TR. Moderate to large pericardial effusion without cardiac tamponade. - Current Medication List Current Medications: Active Medications Acetaminophen (Tylenol -) 650 mg PO Q4H PRN PRN Reason: PAIN 1-6 Last Admin: 12/06/19 21:53 Dose: 650 mg Documented by: Aspirin (Asa -) 81 mg PO DAILY [facility] Last Admin: 12/07/19 10:20 Dose: 81 mg Documented by: Atorvastatin Calcium (Lipitor -) 20 mg PO [facility] Last Admin: 12/06/19 21:54 Dose: 20 mg Documented by: Chlorhexidine Gluconate (Hibiclens For Decolonization -) 1 applic TP [facility] Last Admin: 12/06/19 21:53 Dose: 1 applic Documented by: Dicyclomine HCl (Bentyl -) 10 mg PO Q6H PRN PRN Reason: MUSCLE SPASMS Last Admin: 12/07/19 10:21 Dose: 10 mg Documented by: Donepezil HCl (Aricept -) 10 mg PO DAILY [facility] Last Admin: 12/07/19 13:51 Dose: 10 mg Documented by: Dronabinol (Marinol -) 2.5 mg PO 1730 [facility] Last Admin: 12/06/19 17:51 Dose: Not Given Documented by: Furosemide (Lasix -) 40 mg PO BID@0600,1400 [facility] Hydralazine HCl (Apresoline -) 50 mg PO TID [facility] Last Admin: 12/07/19 13:52 Dose: 50 mg Documented by: Labetalol HCl (Normodyne -) 200 mg PO TID [facility] Last Admin: 12/07/19 13:52 Dose: 200 mg Documented by: Levothyroxine Sodium (Synthroid -) 25 mcg PO DAILY@0700 [facility] Last Admin: 12/07/19 05:59 Dose: 25 mcg Documented by: Losartan Potassium (Cozaar -) 25 mg PO DAILY [facility] Memantine (Namenda -) 5 mg PO BID [facility] Last Admin: 12/07/19 10:20 Dose: 5 mg Documented by: Metoclopramide HCl (Reglan -) 10 mg PO TIDAC [facility] Last Admin: 12/07/19 11:00 Dose: 10 mg Documented by: Mirtazapine (Remeron -) 30 mg PO HS [facility] Last Admin: 12/06/19 21:55 Dose: 30 mg Documented by: Multivitamins/Minerals/Vitamin C (Tab-A-Vit -) 1 tab PO DAILY [facility] Last Admin: 12/07/19 10:20 Dose: 1 tab Documented by: Mupirocin (Bactroban Ointment (For Decolonization) -) 1 applic NS BID [facility] Stop: 12/09/19 09:59 Last Admin: 12/07/19 10:21 Dose: 1 applic Documented by: Nifedipine (Procardia Xl -) 120 mg PO DAILY [facility] Last Admin: 12/07/19 10:19 Dose: 120 mg Documented by: Pantoprazole Sodium (Protonix Iv) 40 mg IVPUSH DAILY [facility] Last Admin: 12/07/19 10:20 Dose: 40 mg Documented by: Polyethylene Glycol (Miralax (For Daily Use) -) 17 gm PO BID [facility] Last Admin: 12/07/19 10:21 Dose: 17 gm Documented by: Polysaccharide Iron Complex (Niferex-150 -) 150 mg PO DAILY [facility] Last Admin: 12/07/19 10:20 Dose: 150 mg Documented by: Potassium Chloride (K-Dur -) 40 meq PO DAILY [facility] Last Admin: 12/07/19 10:21 Dose: 40 meq Documented by: Senna (Senna -) 2 tab PO HS PRN PRN Reason: CONSTIPATION - Objective Vital Signs: Vital Signs Temperature 97.4 F L 12/07/19 13:17 Pulse Rate 60 12/07/19 13:17 Respiratory Rate 20 12/07/19 13:17 Blood Pressure 130/54 L 12/07/19 13:17 O2 Sat by Pulse Oximetry (%) 97 12/07/19 12:00 General: Well developed. Chronic ill and frail. No acute distress. Head: Normocephalic. Atraumatic, Eyes: PERRLA, EOMI. Sclerae anicteric. Conjunctivae clear. Neck: Supple. (+) JVD. No bruits. Heart: Normal S1, S2: Regular rhythm and rate. No murmur. No gallop or rub. Lungs: Decrease BS at bases. Bibasilar crackles. No wheezing or rhonchi. Abdomen: Soft. Bowel sound positive. Non tender. No masses. Extremities: No edema. No clubbing or cyanosis. PD 2+, equal bilaterally Labs: CBC, BMP 12/07/19 07:16 12/07/19 07:16 Assessment/Plan 79 year old woman with a PMHx of HTN, DM, hyperlipidemia, diastolic CHF, moderate to large pericardial effusion without cardiac tamponade on echo 11/23/2019, Parkinson's disease, dementia, CVA, recent admission to [place] for UTI/CHF (discharged on 12/02/19) readmitted 12/03/19 with shortness of breath. CXR 12/04/19 showed progressive worsening bilateral effusion, congestion and infiltrates. BNP is severely elevated. Troponin is elevated in the setting of JASPER and acute CHF. ECG 12/04/19: Sinus rhythm. LAD. Minor non-specific ST-T changes. Echo 12/04/19: Limited study. Small pericardial effusion (<1cm) without cardiac tamponade. When compared with previous echo on 11/24/19, pericardial effusion is reduced. Echo 11/24/19: LVEF 50-55%. Normal RV. Mild LA dilatation. FCAV without . MAC. Minimal MR. Mild TR. Moderate to large pericardial effusion without cardiac tamponade. 1) Acute on chronic diastolic CHF: Improved/resolved dyspnea with IV diuretics. Continue Lasix to PO 40 mg BID. Monitor renal function and body weight. Continue IV Abx as per critical care and ID. 2) Elevated troponin, likely demand ischemia in the setting of acute CHF and JASPER. No acute ECG changes of ischemia. May reduce labetalol to 100 mg BID due to bradycardia. Continue aspirin, and atorvastatin. 3) Pericardial effusion: Markedly reduced from the repeat echocardiogram on 12/04/19. Diuresis therapy could prevent reaccumulating pericardial effusion. Outpatient cardiac followup. Please do not hesitate to call us for reconsult at any time if any further questions or additional issue arises regarding this patient.
--- NOTE | 2019-12-07 15:58 | PN.GI ---
GI Progress Note Subjective: Pt reports feeling nauseous today. Following up on 79 year old female with PMH of CHF, diverticulosis, gastritis admitted with exacerbation of CHF, pericardial effusion, c/o lower abdominal pain. The pt is a poor informant. She denies abdominal pain. Denies vomiting, melena and rectal bleeding. Her last colonoscopy was in 2018, which revealed diverticulosis. - Objective Vital Signs: Vital Signs Temperature 97.4 F L 12/07/19 13:17 Pulse Rate 60 12/07/19 13:17 Respiratory Rate 20 12/07/19 13:17 Blood Pressure 130/54 L 12/07/19 13:17 O2 Sat by Pulse Oximetry (%) 97 12/07/19 12:00 Constitutional: No Distress, Calm Eyes: Yes: Conjunctiva Clear HENT: Yes: Atraumatic Neck: Yes: Supple, Trachea Midline Cardiovascular: Yes: Regular Rate and Rhythm Respiratory: Yes: CTA Bilaterally Gastrointestinal Inspection: No: Distention ...Auscultate: Yes: Normoactive Bowel Sounds ...Palpate: Yes: Soft. No: Firm/Rigid, Guarding, Hepatomegaly, Mass, Pulsatile Mass, Splenomegaly, Tenderness Labs: CBC, BMP 12/07/19 07:16 12/07/19 07:16 Problem List - Problems (1) Abdominal pain Assessment/Plan: r/o secondary to ischemia, SIBO, diverticular spasm start Zofran 4mg as needed for nausea r/o secondary to memantine consider to decrease mirtzapine to 7.5mg consider to d/c dicyclomine in view of pt receiving Reglan FUA- with no sign of obstruction keep hydrated advance diet as tolerated maintain on PPI Code(s): R10.9 - UNSPECIFIED ABDOMINAL PAIN Qualifiers: Abdominal location: generalized Qualified Code(s): R10.84 - Generalized abdominal pain
[2019-12-07] MEDS: DRONABINOL 2.5 MG CAPSULE PO SCH (17:23)
[2019-12-07] MEDS: ATORVASTATIN CA 20 MG TABLET (FP) PO SCH (21:39)
[2019-12-07] MEDS: MIRTAZAPINE 15 MG TABLET (FP) PO SCH (21:39)
[2019-12-08] MEDS: MUPIROCIN 2% TOPICAL OINTMENT FOR DECOLONIZATION NS SCH (01:44)
[2019-12-08] MEDS: CHLORHEXIDINE GLUCONATE 4% CLEANSER FOR DECOLONIZATION TP SCH (01:45)
[2019-12-08] MEDS ORDERED: PT OWN MED DRAWER 7, Y5N ONE ×3 (01:53→21:18)
[2019-12-08] MEDS: FUROSEMIDE 40 MG TABLET (FP) PO SCH ×2 (06:10→15:36)
[2019-12-08] MEDS: LABETALOL HCL 200 MG TABLET (FP) PO SCH ×3 (06:10→21:26)
[2019-12-08] MEDS: METOCLOPRAMIDE HCL 10 MG TABLET (FP) PO SCH ×3 (06:10→17:53)
[2019-12-08] MEDS: hydrALAZINE HCL 50 MG TABLET (FP) PO SCH ×3 (06:11→21:25)
[2019-12-08] MEDS: LEVOTHYROXINE NA 25 MCG TABLET (FP) PO SCH (06:11)
[2019-12-08 08:14] LABS: BASO % 0.5 % (0-2.0); HEMATOCRIT 27.1 % (32.4-45.2); HEMOGLOBIN 8.8 GM/dL (10.7-15.3); LYMPH % 5.4 % (8-40); MCH 27.2 pg (25.7-33.7); MCHC 32.6 g/dl (32.0-36.0); MEAN CELL VOLUME 83.5 fl (80-96); MEAN PLT VOLUME 7.5 fl (7.5-11.1); MONO % 12.7 % (3.8-10.2); NEUT % 73.4 % (42.8-82.8); PLATELET COUNT 343 K/MM3 (134-434); RBC 3.25 M/mm3 (3.60-5.2); WHITE BLOOD COUNT 8.5 K/mm3 (4.0-10.0)
[2019-12-08 08:17] LABS: POTASSIUM 4.1 mmol/L (3.5-5.1)
[2019-12-08 08:44] LABS: ALBUMIN 2.5 g/dl (3.4-5.0); BILIRUBIN,TOTAL 0.5 mg/dL (0.2-1); BLOOD UREA NITROGEN 52.4 mg/dL (7-18); CALCIUM 8.4 mg/dL (8.5-10.1); CREATININE 3.1 mg/dL (0.55-1.3); TOT PROT 5.6 g/dl (6.4-8.2)
[2019-12-08] MEDS: IRON POLYSACCHARIDES 150 MG CAPSULE PO SCH (09:50)
[2019-12-08] MEDS: ASPIRIN 81 MG CHEWABLE TABLETS PO SCH (09:50)
[2019-12-08] MEDS: MEMANTINE HCL 5 MG TABLET (UD) PO SCH ×2 (09:50→21:26)
[2019-12-08] MEDS: NIFEdipine E.R 60 MG TABLET PO SCH (09:50)
[2019-12-08] MEDS: POTASSIUM CHLORIDE TABS 20 MEQ TABLET.ER (FP) PO SCH (09:50)
[2019-12-08] MEDS: DONEPEZIL HCL 10 MG TABLET (FP) PO SCH (09:50)
[2019-12-08] MEDS: POLYETHYLENE GLYCOL 3350 119 GM BTL PO SCH ×2 (09:50→21:26)
[2019-12-08] MEDS: PANTOPRAZOLE SODIUM 40 MG VIAL IVPUSH SCH (09:50)
[2019-12-08] MEDS: MULTIVITAMINS (DAILY MVI) TABLET (FP) PO SCH (09:50)
[2019-12-08] MEDS ORDERED: LOSARTAN POTASSIUM 25 MG TABLET PO SCH (10:00)
--- NOTE | 2019-12-08 10:23 | PN ---
Progress Note, Physician Chief Complaint: AWAKE AND LETHARGIC TODAY NO FEVERS, POOR APPETITE TODAY - Current Medication List Current Medications: Active Medications Acetaminophen (Tylenol -) 650 mg PO Q4H PRN PRN Reason: PAIN 1-6 Last Admin: 12/06/19 21:53 Dose: 650 mg Documented by: Aspirin (Asa -) 81 mg PO DAILY [facility] Last Admin: 12/08/19 09:50 Dose: 81 mg Documented by: Atorvastatin Calcium (Lipitor -) 20 mg PO [facility] Last Admin: 12/07/19 21:39 Dose: 20 mg Documented by: Donepezil HCl (Aricept -) 10 mg PO DAILY [facility] Last Admin: 12/08/19 09:50 Dose: 10 mg Documented by: Dronabinol (Marinol -) 2.5 mg PO 1730 [facility] Last Admin: 12/07/19 17:23 Dose: 2.5 mg Documented by: Furosemide (Lasix -) 40 mg PO BID@0600,1400 [facility] Last Admin: 12/08/19 06:10 Dose: 40 mg Documented by: Hydralazine HCl (Apresoline -) 50 mg PO TID [facility] Last Admin: 12/08/19 06:11 Dose: 50 mg Documented by: Labetalol HCl (Normodyne -) 200 mg PO TID [facility] Last Admin: 12/08/19 06:10 Dose: 200 mg Documented by: Levothyroxine Sodium (Synthroid -) 25 mcg PO DAILY@0700 [facility] Last Admin: 12/08/19 06:11 Dose: 25 mcg Documented by: Losartan Potassium (Cozaar -) 25 mg PO DAILY [facility] Last Admin: 12/08/19 09:50 Dose: 25 mg Documented by: Memantine (Namenda -) 5 mg PO BID [facility] Last Admin: 12/08/19 09:50 Dose: 5 mg Documented by: Metoclopramide HCl (Reglan -) 10 mg PO TIDAC [facility] Last Admin: 12/08/19 06:10 Dose: 10 mg Documented by: Mirtazapine (Remeron -) 30 mg PO [facility] Last Admin: 12/07/19 21:39 Dose: 30 mg Documented by: Multivitamins/Minerals/Vitamin C (Tab-A-Vit -) 1 tab PO DAILY [facility] Last Admin: 12/08/19 09:50 Dose: 1 tab Documented by: Nifedipine (Procardia Xl -) 120 mg PO DAILY [facility] Last Admin: 12/08/19 09:50 Dose: 120 mg Documented by: Pantoprazole Sodium (Protonix Iv) 40 mg IVPUSH DAILY [facility] Last Admin: 12/08/19 09:50 Dose: 40 mg Documented by: Polyethylene Glycol (Miralax (For Daily Use) -) 17 gm PO BID [facility] Last Admin: 12/08/19 09:50 Dose: 17 gm Documented by: Polysaccharide Iron Complex (Niferex-150 -) 150 mg PO DAILY [facility] Last Admin: 12/08/19 09:50 Dose: 150 mg Documented by: Potassium Chloride (K-Dur -) 40 meq PO DAILY [facility] Last Admin: 12/08/19 09:50 Dose: 40 meq Documented by: Senna (Senna -) 2 tab PO HS PRN PRN Reason: CONSTIPATION - Objective Vital Signs: Vital Signs Temperature 98.1 F 12/08/19 06:00 Pulse Rate 68 12/08/19 06:00 Respiratory Rate 18 12/08/19 06:00 Blood Pressure 186/66 H 12/08/19 06:00 O2 Sat by Pulse Oximetry (%) 99 12/08/19 09:00 Cardiovascular: Yes: Regular Rate and Rhythm Respiratory: Yes: Diminished Gastrointestinal: Yes: Soft Genitourinary: Yes: Incontinence Neurological: Yes: Other Labs: CBC, BMP 12/08/19 06:50 12/08/19 06:50 Problem List - Problems (1) Acute on chronic renal failure Code(s): N17.9 - ACUTE KIDNEY FAILURE, UNSPECIFIED; N18.9 - CHRONIC KIDNEY DISEASE, UNSPECIFIED (2) CHF (congestive heart failure) Code(s): I50.9 - HEART FAILURE, UNSPECIFIED Qualifiers: Heart failure type: unspecified Heart failure chronicity: acute on chronic Qualified Code(s): I50.9 - Heart failure, unspecified (3) NSTEMI (non-ST elevated myocardial infarction) Code(s): I21.4 - NON-ST ELEVATION (NSTEMI) MYOCARDIAL INFARCTION (4) SOB (shortness of breath) Code(s): R06.02 - SHORTNESS OF BREATH (5) Abdominal pain Code(s): R10.9 - UNSPECIFIED ABDOMINAL PAIN Qualifiers: Abdominal location: generalized Qualified Code(s): R10.84 - Generalized abdominal pain (6) Acute on chronic diastolic heart failure Code(s): I50.33 - ACUTE ON CHRONIC DIASTOLIC (CONGESTIVE) HEART FAILURE (7) Anemia Code(s): D64.9 - ANEMIA, UNSPECIFIED (8) Diabetes mellitus with autonomic neuropathy Code(s): E11.43 - TYPE 2 DIABETES W DIABETIC AUTONOMIC (POLY)NEUROPATHY Assessment/Plan LABS REVIEWED RENAL FUNCTION IS WORSE TODAY NEPHROLOGY EVAL APPRECIATED IVF STARTED FOR GENTLE HYDRATION. ANEMIA STABLE CXR PENDING TODAY GI EVAL STILL UNCLEAR NEED A PLAN IF CT SCAN VS CONSERVATIVE THERAPY APPETITE WAS BETTER YESTERDAY
--- NOTE | 2019-12-08 12:04 | PN ---
Progress Note (short form) - Note Progress Note: PULMONARY Offers no new complaints Denies chest pain/sp02 99% on 02 Afebrile/186/66 Gen: NAD at rest Heart: RRR Lung: decreased breath sounds at the bases Abd: soft, nontender Ext: no edema Labs/meds/notes/images reviewed ASSESSMENT AND PLAN: Hypertensive Urgency resolving Acute on Chronic Diastolic Heart Failure UTI Pleural Effusions from above Pericardial Effusion +Troponins likely Demand Ischemia HTN Hyperlipidemia DM Hypothyroidism CKD Anemia Parkinsons Dementia - titrate BP meds - O2 to keep SpO2 >90% - continue lasix - monitor urine output, creatinine - DVT prophylaxis Sandra Chew MD
--- NOTE | 2019-12-08 12:18 | PN ---
Progress Note (short form) - Note Progress Note: DISCUSSED WITH DAUGHTER GIOVANNY, SHE REFUSES SNF PLACEMENT FOR HER MOM WANTS HER MOM OPTIMIZED BEFORE DISCHARGE I ORDERED CXR TO CHECK FLUID/CONGESTION DAILY WEIGHTS MONITOR RENAL FUNCTION WITH CKD PT JANEE D/C DISCHARGE Problem List - Problems (1) Acute on chronic renal failure Code(s): N17.9 - ACUTE KIDNEY FAILURE, UNSPECIFIED; N18.9 - CHRONIC KIDNEY DISEASE, UNSPECIFIED (2) CHF (congestive heart failure) Code(s): I50.9 - HEART FAILURE, UNSPECIFIED Qualifiers: Heart failure type: unspecified Heart failure chronicity: acute on chronic Qualified Code(s): I50.9 - Heart failure, unspecified (3) NSTEMI (non-ST elevated myocardial infarction) Code(s): I21.4 - NON-ST ELEVATION (NSTEMI) MYOCARDIAL INFARCTION (4) SOB (shortness of breath) Code(s): R06.02 - SHORTNESS OF BREATH (5) Abdominal pain Code(s): R10.9 - UNSPECIFIED ABDOMINAL PAIN Qualifiers: Abdominal location: generalized Qualified Code(s): R10.84 - Generalized abdominal pain (6) Acute on chronic diastolic heart failure Code(s): I50.33 - ACUTE ON CHRONIC DIASTOLIC (CONGESTIVE) HEART FAILURE (7) Anemia Code(s): D64.9 - ANEMIA, UNSPECIFIED (8) Diabetes mellitus with autonomic neuropathy Code(s): E11.43 - TYPE 2 DIABETES W DIABETIC AUTONOMIC (POLY)NEUROPATHY
--- NOTE | 2019-12-08 12:25 | PN ---
Progress Note, Physician History of Present Illness: Pt seen and examined at bedside. She is awake and alert. She feels that her breathing is improved. - Current Medication List Current Medications: Active Medications Acetaminophen (Tylenol -) 650 mg PO Q4H PRN PRN Reason: PAIN 1-6 Last Admin: 12/06/19 21:53 Dose: 650 mg Documented by: Aspirin (Asa -) 81 mg PO DAILY [facility] Last Admin: 12/08/19 09:50 Dose: 81 mg Documented by: Atorvastatin Calcium (Lipitor -) 20 mg PO [facility] Last Admin: 12/07/19 21:39 Dose: 20 mg Documented by: Donepezil HCl (Aricept -) 10 mg PO DAILY [facility] Last Admin: 12/08/19 09:50 Dose: 10 mg Documented by: Dronabinol (Marinol -) 2.5 mg PO 1730 [facility] Last Admin: 12/07/19 17:23 Dose: 2.5 mg Documented by: Furosemide (Lasix -) 40 mg PO BID@0600,1400 [facility] Last Admin: 12/08/19 06:10 Dose: 40 mg Documented by: Hydralazine HCl (Apresoline -) 50 mg PO TID [facility] Last Admin: 12/08/19 06:11 Dose: 50 mg Documented by: Labetalol HCl (Normodyne -) 200 mg PO TID [facility] Last Admin: 12/08/19 06:10 Dose: 200 mg Documented by: Levothyroxine Sodium (Synthroid -) 25 mcg PO DAILY@0700 [facility] Last Admin: 12/08/19 06:11 Dose: 25 mcg Documented by: Memantine (Namenda -) 5 mg PO BID [facility] Last Admin: 12/08/19 09:50 Dose: 5 mg Documented by: Metoclopramide HCl (Reglan -) 10 mg PO TIDAC [facility] Last Admin: 12/08/19 11:55 Dose: 10 mg Documented by: Mirtazapine (Remeron -) 30 mg PO [facility] Last Admin: 12/07/19 21:39 Dose: 30 mg Documented by: Multivitamins/Minerals/Vitamin C (Tab-A-Vit -) 1 tab PO DAILY [facility] Last Admin: 12/08/19 09:50 Dose: 1 tab Documented by: Nifedipine (Procardia Xl -) 120 mg PO DAILY [facility] Last Admin: 12/08/19 09:50 Dose: 120 mg Documented by: Pantoprazole Sodium (Protonix Iv) 40 mg IVPUSH DAILY [facility] Last Admin: 12/08/19 09:50 Dose: 40 mg Documented by: Polyethylene Glycol (Miralax (For Daily Use) -) 17 gm PO BID [facility] Last Admin: 12/08/19 09:50 Dose: 17 gm Documented by: Polysaccharide Iron Complex (Niferex-150 -) 150 mg PO DAILY [facility] Last Admin: 12/08/19 09:50 Dose: 150 mg Documented by: Potassium Chloride (K-Dur -) 40 meq PO DAILY [facility] Last Admin: 12/08/19 09:50 Dose: 40 meq Documented by: Senna (Senna -) 2 tab PO HS PRN PRN Reason: CONSTIPATION - Objective Vital Signs: Vital Signs Temperature 98.1 F 12/08/19 06:00 Pulse Rate 68 12/08/19 06:00 Respiratory Rate 18 12/08/19 06:00 Blood Pressure 186/66 H 12/08/19 06:00 O2 Sat by Pulse Oximetry (%) 99 12/08/19 09:00 Constitutional: Yes: Calm Eyes: Yes: Conjunctiva Clear HENT: Yes: Atraumatic Neck: Yes: Supple Cardiovascular: Yes: S1, S2 Respiratory: Yes: CTA Bilaterally Gastrointestinal: Yes: Soft Genitourinary: Yes: WNL Musculoskeletal: Yes: WNL Extremities: Yes: WNL Edema: No Neurological: Yes: Oriented Psychiatric: Yes: Oriented Labs: CBC, BMP 12/08/19 06:50 12/08/19 06:50 Problem List - Problems (1) JASPER (acute kidney injury) Code(s): N17.9 - ACUTE KIDNEY FAILURE, UNSPECIFIED (2) CHF (congestive heart failure) Code(s): I50.9 - HEART FAILURE, UNSPECIFIED Qualifiers: Heart failure type: unspecified Heart failure chronicity: acute on chronic Qualified Code(s): I50.9 - Heart failure, unspecified (3) CKD (chronic kidney disease) Code(s): N18.9 - CHRONIC KIDNEY DISEASE, UNSPECIFIED Qualifiers: Chronic kidney disease stage: stage 5, not on chronic dialysis Qualified Code(s): N18.5 - Chronic kidney disease, stage 5 Assessment/Plan Current Medications Generic Name Dose Route Start Last Admin Trade Name Freq PRN Reason Stop Dose Admin Acetaminophen 650 mg 12/06/19 19:39 12/06/19 21:53 Tylenol - PO 650 mg Q4H PRN Administration PAIN 1-6 Aspirin 81 mg 12/07/19 10:00 12/08/19 09:50 Asa - PO 81 mg DAILY [facility] Administration Atorvastatin Calcium 20 mg 12/05/19 22:00 12/07/19 21:39 Lipitor - PO 20 mg HS [facility] Administration Donepezil HCl 10 mg 12/05/19 10:30 12/08/19 09:50 Aricept - PO 10 mg DAILY [facility] Administration Dronabinol 2.5 mg 12/05/19 17:30 12/07/19 17:23 Marinol - PO 2.5 mg 1730 [facility] Administration Furosemide 40 mg 12/08/19 06:00 12/08/19 06:10 Lasix - PO 40 mg BID@0600,1400 [facility] Administration Hydralazine HCl 50 mg 12/06/19 22:00 12/08/19 06:11 Apresoline - PO 50 mg TID [facility] Administration Labetalol HCl 200 mg 12/06/19 22:00 12/08/19 06:10 Normodyne - PO 200 mg TID [facility] Administration Levothyroxine Sodium 25 mcg 12/07/19 07:00 12/08/19 06:11 Synthroid - PO 25 mcg DAILY@0700 [facility] Administration Memantine 5 mg 12/06/19 22:00 12/08/19 09:50 Namenda - PO 5 mg BID [facility] Administration Metoclopramide HCl 10 mg 12/05/19 11:00 12/08/19 11:55 Reglan - PO 10 mg TIDAC [facility] Administration Mirtazapine 30 mg 12/06/19 22:00 12/07/19 21:39 Remeron - PO 30 mg HS [facility] Administration Multivitamins/Minerals/Vitamin C 1 tab 12/05/19 10:30 12/08/19 09:50 Tab-A-Vit - PO 1 tab DAILY [facility] Administration Nifedipine 120 mg 12/05/19 10:15 12/08/19 09:50 Procardia Xl - PO 120 mg DAILY [facility] Administration Pantoprazole Sodium 40 mg 12/07/19 10:00 12/08/19 09:50 Protonix Iv IVPUSH 40 mg DAILY [facility] Administration Polyethylene Glycol 17 gm 12/06/19 22:00 12/08/19 09:50 Miralax (For Daily Use) - PO 17 gm BID [facility] Administration Polysaccharide Iron Complex 150 mg 12/05/19 10:30 12/08/19 09:50 Niferex-150 - PO 150 mg DAILY [facility] Administration Potassium Chloride 40 meq 12/05/19 10:00 12/08/19 09:50 K-Dur - PO 40 meq DAILY [facility] Administration Senna 2 tab 12/06/19 19:39 Senna - PO HS PRN CONSTIPATION Impression 1. JASPER 2. CKD 3. HLD 4. diverticulosis 5. HTN 6. DM 7. proteinuria 8. hypoalbuminemia 9. UTI 10. pleural effusion 11. chf 12. pericardial effusion without tamponade 13. 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
[2019-12-08] MEDS: DRONABINOL 2.5 MG CAPSULE PO SCH (17:53)
[2019-12-08 20:31] VITALS: BMI 24.7
[2019-12-08] MEDS: ATORVASTATIN CA 20 MG TABLET (FP) PO SCH (21:25)
[2019-12-08] MEDS: MIRTAZAPINE 15 MG TABLET (FP) PO SCH (21:26)
[2019-12-09] MEDS: LABETALOL HCL 200 MG TABLET (FP) PO SCH ×3 (06:27→21:23)
[2019-12-09] MEDS: hydrALAZINE HCL 50 MG TABLET (FP) PO SCH ×3 (06:27→21:22)
[2019-12-09] MEDS: LEVOTHYROXINE NA 25 MCG TABLET (FP) PO SCH (06:27)
[2019-12-09] MEDS: METOCLOPRAMIDE HCL 10 MG TABLET (FP) PO SCH ×3 (06:27→16:56)
[2019-12-09] MEDS: FUROSEMIDE 40 MG TABLET (FP) PO SCH ×2 (06:27→14:46)
[2019-12-09 07:11] LABS: HEMATOCRIT 28.5 % (32.4-45.2); HEMOGLOBIN 9.5 GM/dL (10.7-15.3); MCH 27.8 pg (25.7-33.7); MCHC 33.3 g/dl (32.0-36.0); MEAN CELL VOLUME 83.6 fl (80-96); MEAN PLT VOLUME 7.4 fl (7.5-11.1); PLATELET COUNT 383 K/MM3 (134-434); RDW 18.5 % (11.6-15.6); WHITE BLOOD COUNT 9.9 K/mm3 (4.0-10.0)
[2019-12-09 07:32] LABS: BLOOD UREA NITROGEN 52.5 mg/dL (7-18); CALCIUM 8.1 mg/dL (8.5-10.1); POTASSIUM 4.6 mmol/L (3.5-5.1)
[2019-12-09] MEDS: NIFEdipine E.R 60 MG TABLET PO SCH (10:34)
[2019-12-09] MEDS: IRON POLYSACCHARIDES 150 MG CAPSULE PO SCH (10:34)
[2019-12-09] MEDS: PANTOPRAZOLE SODIUM 40 MG VIAL IVPUSH SCH (10:34)
[2019-12-09] MEDS: POLYETHYLENE GLYCOL 3350 119 GM BTL PO SCH ×2 (10:35→21:22)
[2019-12-09] MEDS: POTASSIUM CHLORIDE TABS 20 MEQ TABLET.ER (FP) PO SCH (10:35)
[2019-12-09] MEDS: MEMANTINE HCL 5 MG TABLET (UD) PO SCH ×2 (10:35→21:22)
[2019-12-09] MEDS: ASPIRIN 81 MG CHEWABLE TABLETS PO SCH (10:35)
[2019-12-09] MEDS: DONEPEZIL HCL 10 MG TABLET (FP) PO SCH (10:36)
[2019-12-09] MEDS: MULTIVITAMINS (DAILY MVI) TABLET (FP) PO SCH (10:36)
--- NOTE | 2019-12-09 11:13 | PN ---
Progress Note (short form) - Note Progress Note: PULMONARY Offers no new complaints Remains confused pulling out IV Afebrile/152/62 Gen: NAD at rest Heart: RRR Lung: decreased breath sounds at the bases Abd: soft, nontender Ext: no edema Labs/meds/notes/images reviewed ASSESSMENT AND PLAN: Hypertensive Urgency resolving Acute on Chronic Diastolic Heart Failure UTI Pleural Effusions from above Pericardial Effusion +Troponins likely Demand Ischemia HTN Hyperlipidemia DM Hypothyroidism CKD Anemia Parkinsons Dementia - titrate BP meds - O2 to keep SpO2 >90% - continue lasix - monitor urine output, creatinine - DVT prophylaxis - will change medrol to prednisone Sandra Chew MD
--- NOTE | 2019-12-09 11:51 | PN ---
Progress Note, Physician History of Present Illness: Hypoxia Shortness of breath CHF Pericardial effusion Elevated troponins Anemia Pneumonia History of Present Illness: 79 year old female, discharged from recent hospitalization on 12/02/19 for UTI and moderate pericardial effusion, returned 24 hours later with SOB, hypoxia, BIBEMS admitted with SOB, hypoxia, CHF, elevated troponin. Last echo + moderate pericardia effusion w/o any evidence of cardiac tamponade, repeat echo 12/04/19 showed small pericardial effusion, CXR + pleural effusion + possible bibasilar infiltrates. Started on IV azithro+ Zosyn, evaluated by ID. At home she is on Hydralazine 50 mg po TID + Labetalol 200 mg po TID+ Nifedapine 120 mg po daily + Torsemide 40 mg po daily. Upon admission, pt was started on IV furosemide 40 mg BID + Hydralazine+ labetalol -same dose. - Current Medication List Current Medications: Active Medications Acetaminophen (Tylenol -) 650 mg PO Q4H PRN PRN Reason: PAIN 1-6 Last Admin: 12/06/19 21:53 Dose: 650 mg Documented by: Aspirin (Asa -) 81 mg PO DAILY [facility] Last Admin: 12/09/19 10:35 Dose: 81 mg Documented by: Atorvastatin Calcium (Lipitor -) 20 mg PO HS [facility] Last Admin: 12/08/19 21:25 Dose: 20 mg Documented by: Donepezil HCl (Aricept -) 10 mg PO DAILY [facility] Last Admin: 12/09/19 10:36 Dose: 10 mg Documented by: Dronabinol (Marinol -) 2.5 mg PO 1730 [facility] Last Admin: 12/08/19 17:53 Dose: 2.5 mg Documented by: Furosemide (Lasix -) 40 mg PO BID@0600,1400 [facility] Last Admin: 12/09/19 06:27 Dose: 40 mg Documented by: Hydralazine HCl (Apresoline -) 50 mg PO TID [facility] Last Admin: 12/09/19 06:27 Dose: 50 mg Documented by: Labetalol HCl (Normodyne -) 200 mg PO TID [facility] Last Admin: 12/09/19 06:27 Dose: 200 mg Documented by: Levothyroxine Sodium (Synthroid -) 25 mcg PO DAILY@0700 [facility] Last Admin: 12/09/19 06:27 Dose: 25 mcg Documented by: Memantine (Namenda -) 5 mg PO BID [facility] Last Admin: 12/09/19 10:35 Dose: 5 mg Documented by: Metoclopramide HCl (Reglan -) 10 mg PO TIDAC [facility] Last Admin: 12/09/19 10:36 Dose: 10 mg Documented by: Mirtazapine (Remeron -) 30 mg PO HS [facility] Last Admin: 12/08/19 21:26 Dose: 30 mg Documented by: Multivitamins/Minerals/Vitamin C (Tab-A-Vit -) 1 tab PO DAILY [facility] Last Admin: 12/09/19 10:36 Dose: 1 tab Documented by: Nifedipine (Procardia Xl -) 120 mg PO DAILY [facility] Last Admin: 12/09/19 10:34 Dose: 120 mg Documented by: Pantoprazole Sodium (Protonix Iv) 40 mg IVPUSH DAILY [facility] Last Admin: 12/09/19 10:34 Dose: 40 mg Documented by: Polyethylene Glycol (Miralax (For Daily Use) -) 17 gm PO BID [facility] Last Admin: 12/09/19 10:35 Dose: 17 gm Documented by: Polysaccharide Iron Complex (Niferex-150 -) 150 mg PO DAILY [facility] Last Admin: 12/09/19 10:34 Dose: 150 mg Documented by: Potassium Chloride (K-Dur -) 40 meq PO DAILY [facility] Last Admin: 12/09/19 10:35 Dose: 40 meq Documented by: Senna (Senna -) 2 tab PO HS PRN PRN Reason: CONSTIPATION - Objective Vital Signs: Vital Signs Temperature 98.4 F 12/09/19 10:00 Pulse Rate 67 12/09/19 10:00 Respiratory Rate 18 12/09/19 10:00 Blood Pressure 152/62 12/09/19 10:00 O2 Sat by Pulse Oximetry (%) 97 12/09/19 10:00 Cardiovascular: Yes: Regular Rate and Rhythm Respiratory: Yes: Regular, CTA Bilaterally Gastrointestinal: Yes: Normal Bowel Sounds, Soft Labs: CBC, BMP 12/09/19 06:45 12/09/19 06:45 Problem List - Problems (1) CHF (congestive heart failure) Code(s): I50.9 - HEART FAILURE, UNSPECIFIED Qualifiers: Heart failure type: unspecified Heart failure chronicity: acute on chronic Qualified Code(s): I50.9 - Heart failure, unspecified (2) CKD (chronic kidney disease) Code(s): N18.9 - CHRONIC KIDNEY DISEASE, UNSPECIFIED Qualifiers: Chronic kidney disease stage: stage 5, not on chronic dialysis Qualified Code(s): N18.5 - Chronic kidney disease, stage 5 (3) Anemia Code(s): D64.9 - ANEMIA, UNSPECIFIED (4) Diabetes Code(s): E11.9 - TYPE 2 DIABETES MELLITUS WITHOUT COMPLICATIONS (5) Elevated troponin Code(s): R74.8 - ABNORMAL LEVELS OF OTHER SERUM ENZYMES (6) HTN (hypertension) Code(s): I10 - ESSENTIAL (PRIMARY) HYPERTENSION Assessment/Plan - Problems (1) SOB (shortness of breath) Assessment/Plan: -2/2 to acute CHF -Nasal O2 to keep SpO2>90% -diuresis -Pulmonary consult -COVID 19 PCR negative 11/23/19 Problems reviewed: Yes Code(s): R06.02 - SHORTNESS OF BREATH (2) Acute on chronic diastolic heart failure Assessment/Plan: -Cardiology consult -Furosemide 40 mg PO BID -Continue labetalol 200 mg PO TID -Continue hydralazine 50 mg po TID -Restart Nifedipine 120 mg Problems reviewed: Yes Code(s): I50.33 - ACUTE ON CHRONIC DIASTOLIC (CONGESTIVE) HEART FAILURE (3) Elevated troponin Assessment/Plan: -Likely demand ischemia Problems reviewed: Yes Code(s): R74.8 - ABNORMAL LEVELS OF OTHER SERUM ENZYMES (4) Acute on chronic renal failure Assessment/Plan: -Nephrology consult -Monitor Cr Trend -Baseline Cr at 1.8-2.2-3 -ARB on hold Problems reviewed: Yes Code(s): N17.9 - ACUTE KIDNEY FAILURE, UNSPECIFIED; N18.9 - CHRONIC KIDNEY DISEASE, UNSPECIFIED (5) Anemia Assessment/Plan: -Chronic -OLINDA -Continue iron polysaccharide 150 mg po daily -Monitor H/h Problems reviewed: Yes Code(s): D64.9 - ANEMIA, UNSPECIFIED (6) Dementia Assessment/Plan: -Continue Memantine + donepezil Problems reviewed: Yes Code(s): F03.90 - UNSPECIFIED DEMENTIA WITHOUT BEHAVIORAL DISTURBANCE (7) HTN (hypertension) Assessment/Plan: -As above Problems reviewed: Yes Code(s): I10 - ESSENTIAL (PRIMARY) HYPERTENSION (8) Hypokalemia Assessment/Plan: -2/2 to decreased po intake and diuresis -KCL 40 meq po daily -monitor trend Problems reviewed: Yes Code(s): E87.6 - HYPOKALEMIA (9) Abdominal pain Assessment/Plan: -CTAP from 11/23/19 was unremarkable -GI consult -Dicyclomine PRN -Reglan TID AC -PPI Problems reviewed: Yes Code(s): R10.9 - UNSPECIFIED ABDOMINAL PAIN Qualifiers: Abdominal location: generalized Qualified Code(s): R10.84 - Generalized abdominal pain
--- NOTE | 2019-12-09 16:46 | PN ---
Progress Note (short form) - Note Progress Note: Impression 1. JASPER 2. CKD 3. HLD 4. diverticulosis 5. HTN 6. DM 7. proteinuria 8. hypoalbuminemia 9. UTI 10. pleural effusion 11. chf 12. pericardial effusion without tamponade 13. fluid overload Active Medications Acetaminophen (Tylenol -) 650 mg PO Q4H PRN PRN Reason: PAIN 1-6 Last Admin: 12/06/19 21:53 Dose: 650 mg Documented by: Aspirin (Asa -) 81 mg PO DAILY [facility] Last Admin: 12/09/19 10:35 Dose: 81 mg Documented by: Atorvastatin Calcium (Lipitor -) 20 mg PO [facility] Last Admin: 12/08/19 21:25 Dose: 20 mg Documented by: Donepezil HCl (Aricept -) 10 mg PO DAILY [facility] Last Admin: 12/09/19 10:36 Dose: 10 mg Documented by: Dronabinol (Marinol -) 2.5 mg PO 1730 [facility] Last Admin: 12/08/19 17:53 Dose: 2.5 mg Documented by: Furosemide (Lasix -) 40 mg PO BID@0600,1400 [facility] Last Admin: 12/09/19 14:46 Dose: 40 mg Documented by: Hydralazine HCl (Apresoline -) 50 mg PO TID [facility] Last Admin: 12/09/19 14:46 Dose: 50 mg Documented by: Labetalol HCl (Normodyne -) 200 mg PO TID [facility] Last Admin: 12/09/19 14:46 Dose: 200 mg Documented by: Levothyroxine Sodium (Synthroid -) 25 mcg PO DAILY@0700 [facility] Last Admin: 12/09/19 06:27 Dose: 25 mcg Documented by: Memantine (Namenda -) 5 mg PO BID [facility] Last Admin: 12/09/19 10:35 Dose: 5 mg Documented by: Metoclopramide HCl (Reglan -) 10 mg PO TIDAC [facility] Last Admin: 12/09/19 10:36 Dose: 10 mg Documented by: Mirtazapine (Remeron -) 30 mg PO [facility] Last Admin: 12/08/19 21:26 Dose: 30 mg Documented by: Multivitamins/Minerals/Vitamin C (Tab-A-Vit -) 1 tab PO DAILY [facility] Last Admin: 12/09/19 10:36 Dose: 1 tab Documented by: Nifedipine (Procardia Xl -) 120 mg PO DAILY [facility] Last Admin: 12/09/19 10:34 Dose: 120 mg Documented by: Pantoprazole Sodium (Protonix Iv) 40 mg IVPUSH DAILY [facility] Last Admin: 12/09/19 10:34 Dose: 40 mg Documented by: Polyethylene Glycol (Miralax (For Daily Use) -) 17 gm PO BID [facility] Last Admin: 12/09/19 10:35 Dose: 17 gm Documented by: Polysaccharide Iron Complex (Niferex-150 -) 150 mg PO DAILY [facility] Last Admin: 12/09/19 10:34 Dose: 150 mg Documented by: Potassium Chloride (K-Dur -) 40 meq PO DAILY [facility] Last Admin: 12/09/19 10:35 Dose: 40 meq Documented by: Senna (Senna -) 2 tab PO HS PRN PRN Reason: CONSTIPATION Last Vital Signs Temp Pulse Resp BP Pulse Ox 98.4 F 62 18 148/51 L 96 12/09/19 10:00 12/09/19 14:00 12/09/19 14:00 12/09/19 14:00 12/09/19 14:00 CBC, BMP 12/09/19 06:45 12/09/19 06:45 IMP- s/p fluid overload peripheral edema is less Plan- continue current rx
[2019-12-09] MEDS: DRONABINOL 2.5 MG CAPSULE PO SCH (16:56)
[2019-12-09] MEDS ORDERED: PT OWN MED DRAWER 7, Y5N ONE (21:09)
[2019-12-09] MEDS: ATORVASTATIN CA 20 MG TABLET (FP) PO SCH (21:22)
[2019-12-09] MEDS: MIRTAZAPINE 15 MG TABLET (FP) PO SCH (21:22)
[2019-12-10] MEDS: hydrALAZINE HCL 50 MG TABLET (FP) PO SCH ×3 (06:34→21:53)
[2019-12-10] MEDS: METOCLOPRAMIDE HCL 10 MG TABLET (FP) PO SCH ×3 (06:34→17:09)
[2019-12-10] MEDS: FUROSEMIDE 40 MG TABLET (FP) PO SCH ×2 (06:34→14:10)
[2019-12-10] MEDS: LEVOTHYROXINE NA 25 MCG TABLET (FP) PO SCH (06:34)
[2019-12-10] MEDS: LABETALOL HCL 200 MG TABLET (FP) PO SCH ×3 (06:34→22:01)
[2019-12-10 09:05] LABS: HEMATOCRIT 28.2 % (32.4-45.2); HEMOGLOBIN 9.4 GM/dL (10.7-15.3); MCH 28.3 pg (25.7-33.7); MCHC 33.3 g/dl (32.0-36.0); MEAN CELL VOLUME 85.1 fl (80-96); MEAN PLT VOLUME 7.2 fl (7.5-11.1); PLATELET COUNT 352 K/MM3 (134-434); RBC 3.31 M/mm3 (3.60-5.2); RDW 18.8 % (11.6-15.6); WHITE BLOOD COUNT 7.2 K/mm3 (4.0-10.0)
[2019-12-10] MEDS ORDERED: PT OWN MED DRAWER 7, Y5N ONE ×2 (09:21→11:35)
--- NOTE | 2019-12-10 09:25 | PN ---
Progress Note, Physician - Current Medication List Current Medications: Active Medications Acetaminophen (Tylenol -) 650 mg PO Q4H PRN PRN Reason: PAIN 1-6 Last Admin: 12/06/19 21:53 Dose: 650 mg Documented by: Aspirin (Asa -) 81 mg PO DAILY [facility] Last Admin: 12/09/19 10:35 Dose: 81 mg Documented by: Atorvastatin Calcium (Lipitor -) 20 mg PO [facility] Last Admin: 12/09/19 21:22 Dose: 20 mg Documented by: Donepezil HCl (Aricept -) 10 mg PO DAILY [facility] Last Admin: 12/09/19 10:36 Dose: 10 mg Documented by: Dronabinol (Marinol -) 2.5 mg PO 1730 [facility] Last Admin: 12/09/19 16:56 Dose: 2.5 mg Documented by: Furosemide (Lasix -) 40 mg PO BID@0600,1400 [facility] Last Admin: 12/10/19 06:34 Dose: 40 mg Documented by: Hydralazine HCl (Apresoline -) 50 mg PO TID [facility] Last Admin: 12/10/19 06:34 Dose: 50 mg Documented by: Labetalol HCl (Normodyne -) 200 mg PO TID [facility] Last Admin: 12/10/19 06:34 Dose: 200 mg Documented by: Levothyroxine Sodium (Synthroid -) 25 mcg PO DAILY@0700 [facility] Last Admin: 12/10/19 06:34 Dose: 25 mcg Documented by: Memantine (Namenda -) 5 mg PO BID [facility] Last Admin: 12/09/19 21:22 Dose: 5 mg Documented by: Metoclopramide HCl (Reglan -) 10 mg PO TIDAC [facility] Last Admin: 12/10/19 06:34 Dose: 10 mg Documented by: Mirtazapine (Remeron -) 30 mg PO [facility] Last Admin: 12/09/19 21:22 Dose: 30 mg Documented by: Multivitamins/Minerals/Vitamin C (Tab-A-Vit -) 1 tab PO DAILY [facility] Last Admin: 12/09/19 10:36 Dose: 1 tab Documented by: Nifedipine (Procardia Xl -) 120 mg PO DAILY [facility] Last Admin: 12/09/19 10:34 Dose: 120 mg Documented by: Pantoprazole Sodium (Protonix Iv) 40 mg IVPUSH DAILY [facility] Last Admin: 12/09/19 10:34 Dose: 40 mg Documented by: Polyethylene Glycol (Miralax (For Daily Use) -) 17 gm PO BID [facility] Last Admin: 12/09/19 21:22 Dose: 17 gm Documented by: Polysaccharide Iron Complex (Niferex-150 -) 150 mg PO DAILY [facility] Last Admin: 12/09/19 10:34 Dose: 150 mg Documented by: Potassium Chloride (K-Dur -) 40 meq PO DAILY [facility] Last Admin: 12/09/19 10:35 Dose: 40 meq Documented by: Senna (Senna -) 2 tab PO HS PRN PRN Reason: CONSTIPATION - Objective Vital Signs: Vital Signs Temperature 99.3 F 12/10/19 06:00 Pulse Rate 73 12/10/19 06:00 Respiratory Rate 18 12/10/19 06:00 Blood Pressure 152/73 12/10/19 06:00 O2 Sat by Pulse Oximetry (%) 97 12/09/19 22:00 Cardiovascular: Yes: Regular Rate and Rhythm Respiratory: Yes: Regular, CTA Bilaterally Gastrointestinal: Yes: Normal Bowel Sounds, Soft Labs: CBC, BMP 12/10/19 08:45 Problem List - Problems (1) CHF (congestive heart failure) Code(s): I50.9 - HEART FAILURE, UNSPECIFIED Qualifiers: Heart failure type: unspecified Heart failure chronicity: acute on chronic Qualified Code(s): I50.9 - Heart failure, unspecified (2) CKD (chronic kidney disease) Code(s): N18.9 - CHRONIC KIDNEY DISEASE, UNSPECIFIED Qualifiers: Chronic kidney disease stage: stage 5, not on chronic dialysis Qualified Code(s): N18.5 - Chronic kidney disease, stage 5 (3) Anemia Code(s): D64.9 - ANEMIA, UNSPECIFIED (4) Diabetes Code(s): E11.9 - TYPE 2 DIABETES MELLITUS WITHOUT COMPLICATIONS (5) Elevated troponin Code(s): R74.8 - ABNORMAL LEVELS OF OTHER SERUM ENZYMES (6) HTN (hypertension) Code(s): I10 - ESSENTIAL (PRIMARY) HYPERTENSION Assessment/Plan - Problems (1) SOB (shortness of breath) Assessment/Plan: -2/2 to acute CHF -Nasal O2 to keep SpO2>90% -diuresis -Pulmonary consult -COVID 19 PCR negative 11/23/19 Problems reviewed: Yes Code(s): R06.02 - SHORTNESS OF BREATH (2) Acute on chronic diastolic heart failure Assessment/Plan: -Cardiology consult -Furosemide 40 mg PO BID -Continue labetalol 200 mg PO TID -Continue hydralazine 50 mg po TID -Restart Nifedipine 120 mg Problems reviewed: Yes Code(s): I50.33 - ACUTE ON CHRONIC DIASTOLIC (CONGESTIVE) HEART FAILURE (3) Elevated troponin Assessment/Plan: -Likely demand ischemia Problems reviewed: Yes Code(s): R74.8 - ABNORMAL LEVELS OF OTHER SERUM ENZYMES (4) Acute on chronic renal failure Assessment/Plan: -Nephrology consult -Monitor Cr Trend -Baseline Cr at 1.8-2.2-3 -ARB on hold Problems reviewed: Yes Code(s): N17.9 - ACUTE KIDNEY FAILURE, UNSPECIFIED; N18.9 - CHRONIC KIDNEY D ISEASE, UNSPECIFIED (5) Anemia Assessment/Plan: -Chronic -OLINDA -Continue iron polysaccharide 150 mg po daily -Monitor H/h Problems reviewed: Yes Code(s): D64.9 - ANEMIA, UNSPECIFIED (6) Dementia Assessment/Plan: -Continue Memantine + donepezil Problems reviewed: Yes Code(s): F03.90 - UNSPECIFIED DEMENTIA WITHOUT BEHAVIORAL DISTURBANCE (7) HTN (hypertension) Assessment/Plan: -As above Problems reviewed: Yes Code(s): I10 - ESSENTIAL (PRIMARY) HYPERTENSION (8) Hypokalemia Assessment/Plan: -2/2 to decreased po intake and diuresis -KCL 40 meq po daily -monitor trend Problems reviewed: Yes Code(s): E87.6 - HYPOKALEMIA (9) Abdominal pain Assessment/Plan: -CTAP from 11/23/19 was unremarkable -GI consult -Dicyclomine PRN -Reglan TID AC -PPI Problems reviewed: Yes Code(s): R10.9 - UNSPECIFIED ABDOMINAL PAIN Qualifiers: Abdominal location: generalized Qualified Code(s): R10.84 - Generalized abdominal pain simba cortez
[2019-12-10] MEDS: ASPIRIN 81 MG CHEWABLE TABLETS PO SCH (09:31)
[2019-12-10] MEDS: NIFEdipine E.R 60 MG TABLET PO SCH (09:31)
[2019-12-10] MEDS: PANTOPRAZOLE SODIUM 40 MG VIAL IVPUSH SCH (09:31)
[2019-12-10] MEDS: POTASSIUM CHLORIDE TABS 20 MEQ TABLET.ER (FP) PO SCH (09:31)
[2019-12-10] MEDS: MULTIVITAMINS (DAILY MVI) TABLET (FP) PO SCH (09:31)
[2019-12-10 09:32] LABS: ALBUMIN 2.6 g/dl (3.4-5.0); BLOOD UREA NITROGEN 47.3 mg/dL (7-18); CALCIUM 8.3 mg/dL (8.5-10.1); CREATININE 2.6 mg/dL (0.55-1.3); POTASSIUM 5.1 mmol/L (3.5-5.1); TOT PROT 5.6 g/dl (6.4-8.2)
[2019-12-10] MEDS: IRON POLYSACCHARIDES 150 MG CAPSULE PO SCH (09:32)
[2019-12-10] MEDS: MEMANTINE HCL 5 MG TABLET (UD) PO SCH ×2 (09:32→22:00)
[2019-12-10] MEDS: DONEPEZIL HCL 10 MG TABLET (FP) PO SCH (09:32)
[2019-12-10] MEDS: POLYETHYLENE GLYCOL 3350 119 GM BTL PO SCH ×2 (09:32→22:00)
[2019-12-10 09:33] LABS: BILIRUBIN,TOTAL 0.9 mg/dL (0.2-1)
--- NOTE | 2019-12-10 11:54 | PN ---
Progress Note (short form) - Note Progress Note: PULMONARY Awake/Alert Afebrile/219/69 Gen: NAD at rest Heart: RRR Lung: decreased breath sounds at the bases Abd: soft, nontender Ext: no edema Labs/meds/notes/images reviewed ASSESSMENT AND PLAN: Hypertensive Urgency Acute on Chronic Diastolic Heart Failure UTI Pleural Effusions from above Pericardial Effusion +Troponins likely Demand Ischemia HTN Hyperlipidemia DM Hypothyroidism CKD Anemia Parkinsons Dementia - titrate BP meds - O2 to keep SpO2 >90% - continue lasix - monitor urine output, creatinine - DVT prophylaxis Sandra Chew MD
[2019-12-10] MEDS: DRONABINOL 2.5 MG CAPSULE PO SCH (17:09)
--- NOTE | 2019-12-10 19:25 | PN ---
Progress Note (short form) - Note Progress Note: Problems 1. JASPER 2. CKD 3. HLD 4. diverticulosis 5. HTN 6. DM 7. proteinuria 8. hypoalbuminemia 9. UTI 10. pleural effusion 11. chf 12. pericardial effusion without tamponade 13. fluid overload Active Medications Acetaminophen (Tylenol -) 650 mg PO Q4H PRN PRN Reason: PAIN 1-6 Last Admin: 12/06/19 21:53 Dose: 650 mg Documented by: Aspirin (Asa -) 81 mg PO DAILY [facility] Last Admin: 12/10/19 09:31 Dose: 81 mg Documented by: Atorvastatin Calcium (Lipitor -) 20 mg PO [facility] Last Admin: 12/09/19 21:22 Dose: 20 mg Documented by: Donepezil HCl (Aricept -) 10 mg PO DAILY [facility] Last Admin: 12/10/19 09:32 Dose: 10 mg Documented by: Dronabinol (Marinol -) 2.5 mg PO 1730 [facility] Last Admin: 12/10/19 17:09 Dose: 2.5 mg Documented by: Furosemide (Lasix -) 40 mg PO BID@0600,1400 [facility] Last Admin: 12/10/19 14:10 Dose: 40 mg Documented by: Hydralazine HCl (Apresoline -) 50 mg PO TID [facility] Last Admin: 12/10/19 14:10 Dose: 50 mg Documented by: Labetalol HCl (Normodyne -) 200 mg PO TID [facility] Last Admin: 12/10/19 14:10 Dose: 200 mg Documented by: Levothyroxine Sodium (Synthroid -) 25 mcg PO DAILY@0700 [facility] Last Admin: 12/10/19 06:34 Dose: 25 mcg Documented by: Memantine (Namenda -) 5 mg PO BID [facility] Last Admin: 12/10/19 09:32 Dose: 5 mg Documented by: Metoclopramide HCl (Reglan -) 10 mg PO TIDAC [facility] Last Admin: 12/10/19 17:09 Dose: 10 mg Documented by: Mirtazapine (Remeron -) 30 mg PO [facility] Last Admin: 12/09/19 21:22 Dose: 30 mg Documented by: Multivitamins/Minerals/Vitamin C (Tab-A-Vit -) 1 tab PO DAILY [facility] Last Admin: 12/10/19 09:31 Dose: 1 tab Documented by: Nifedipine (Procardia Xl -) 120 mg PO DAILY [facility] Last Admin: 12/10/19 09:31 Dose: 120 mg Documented by: Pantoprazole Sodium (Protonix Iv) 40 mg IVPUSH DAILY [facility] Last Admin: 12/10/19 09:31 Dose: 40 mg Documented by: Polyethylene Glycol (Miralax (For Daily Use) -) 17 gm PO BID [facility] Last Admin: 12/10/19 09:32 Dose: 17 gm Documented by: Polysaccharide Iron Complex (Niferex-150 -) 150 mg PO DAILY [facility] Last Admin: 12/10/19 09:32 Dose: 150 mg Documented by: Potassium Chloride (K-Dur -) 40 meq PO DAILY [facility] Last Admin: 12/10/19 09:31 Dose: 40 meq Documented by: Senna (Senna -) 2 tab PO HS PRN PRN Reason: CONSTIPATION Last Vital Signs Temp Pulse Resp BP Pulse Ox 97.8 F 62 18 164/62 97 12/10/19 18:00 12/10/19 18:00 12/10/19 18:00 12/10/19 18:00 12/10/19 18:00 CBC, BMP 12/09/19 06:45 12/09/19 06:45 IMP- s/p fluid overload peripheral edema is less Plan- continue current rx
[2019-12-10 19:56] LABS: ALBUMIN 2.7 g/dl (3.4-5.0); BILIRUBIN,TOTAL 0.4 mg/dL (0.2-1); BLOOD UREA NITROGEN 51.5 mg/dL (7-18); CALCIUM 8.1 mg/dL (8.5-10.1); CREATININE 2.6 mg/dL (0.55-1.3); POTASSIUM 5.2 mmol/L (3.5-5.1); TOT PROT 5.7 g/dl (6.4-8.2)
[2019-12-10] MEDS: ATORVASTATIN CA 20 MG TABLET (FP) PO SCH (21:55)
[2019-12-10] MEDS: MIRTAZAPINE 15 MG TABLET (FP) PO SCH (22:01)
[2019-12-11] MEDS: LABETALOL HCL 200 MG TABLET (FP) PO SCH ×3 (06:17→22:00)
[2019-12-11] MEDS: METOCLOPRAMIDE HCL 10 MG TABLET (FP) PO SCH ×3 (06:17→17:29)
[2019-12-11] MEDS: hydrALAZINE HCL 50 MG TABLET (FP) PO SCH ×3 (06:17→21:59)
[2019-12-11] MEDS: LEVOTHYROXINE NA 25 MCG TABLET (FP) PO SCH (06:17)
[2019-12-11] MEDS: FUROSEMIDE 40 MG TABLET (FP) PO SCH ×2 (06:17→13:41)
[2019-12-11 08:39] LABS: ALBUMIN 2.8 g/dl (3.4-5.0); BILIRUBIN,TOTAL 0.4 mg/dL (0.2-1); BLOOD UREA NITROGEN 47.4 mg/dL (7-18); CALCIUM 8.3 mg/dL (8.5-10.1); CREATININE 2.3 mg/dL (0.55-1.3); POTASSIUM 4.9 mmol/L (3.5-5.1); TOT PROT 5.8 g/dl (6.4-8.2)
[2019-12-11 09:11] LABS: HEMATOCRIT 29.9 % (32.4-45.2); HEMOGLOBIN 9.7 GM/dL (10.7-15.3); MCH 27.4 pg (25.7-33.7); MCHC 32.3 g/dl (32.0-36.0); MEAN CELL VOLUME 84.8 fl (80-96); MEAN PLT VOLUME 7.5 fl (7.5-11.1); PLATELET COUNT 413 K/MM3 (134-434); RBC 3.53 M/mm3 (3.60-5.2); RDW 18.5 % (11.6-15.6); WHITE BLOOD COUNT 7.7 K/mm3 (4.0-10.0)
[2019-12-11] MEDS ORDERED: PT OWN MED DRAWER 7, Y5N ONE ×4 (10:05→21:24)
[2019-12-11] MEDS: NIFEdipine E.R 60 MG TABLET PO SCH (10:13)
[2019-12-11] MEDS: DONEPEZIL HCL 10 MG TABLET (FP) PO SCH (10:13)
[2019-12-11] MEDS: POTASSIUM CHLORIDE TABS 20 MEQ TABLET.ER (FP) PO SCH (10:14)
[2019-12-11] MEDS: ASPIRIN 81 MG CHEWABLE TABLETS PO SCH (10:14)
[2019-12-11] MEDS: POLYETHYLENE GLYCOL 3350 119 GM BTL PO SCH ×2 (10:14→21:59)
[2019-12-11] MEDS: MULTIVITAMINS (DAILY MVI) TABLET (FP) PO SCH (10:14)
[2019-12-11] MEDS: MEMANTINE HCL 5 MG TABLET (UD) PO SCH ×2 (10:15→21:59)
[2019-12-11] MEDS: PANTOPRAZOLE SODIUM 40 MG VIAL IVPUSH SCH (10:15)
[2019-12-11] MEDS: IRON POLYSACCHARIDES 150 MG CAPSULE PO SCH (10:15)
[2019-12-11] MEDS: ACETAMINOPHEN 325 MG TABLET (FP) PO PRN (12:30)
--- NOTE | 2019-12-11 12:47 | PN ---
Progress Note, Physician History of Present Illness: Pt seen and examined at bedside. She is awake and alert. She is out of bed to chair. - Current Medication List Current Medications: Active Medications Acetaminophen (Tylenol -) 650 mg PO Q4H PRN PRN Reason: PAIN 1-6 Last Admin: 12/06/19 21:53 Dose: 650 mg Documented by: Aspirin (Asa -) 81 mg PO DAILY [facility] Last Admin: 12/11/19 10:14 Dose: 81 mg Documented by: Atorvastatin Calcium (Lipitor -) 20 mg PO [facility] Last Admin: 12/10/19 21:55 Dose: 20 mg Documented by: Donepezil HCl (Aricept -) 10 mg PO DAILY [facility] Last Admin: 12/11/19 10:13 Dose: 10 mg Documented by: Dronabinol (Marinol -) 2.5 mg PO 1730 [facility] Last Admin: 12/10/19 17:09 Dose: 2.5 mg Documented by: Furosemide (Lasix -) 40 mg PO BID@0600,1400 [facility] Last Admin: 12/11/19 06:17 Dose: 40 mg Documented by: Hydralazine HCl (Apresoline -) 50 mg PO TID [facility] Last Admin: 12/11/19 06:17 Dose: 50 mg Documented by: Labetalol HCl (Normodyne -) 200 mg PO TID [facility] Last Admin: 12/11/19 06:17 Dose: 200 mg Documented by: Levothyroxine Sodium (Synthroid -) 25 mcg PO DAILY@0700 [facility] Last Admin: 12/11/19 06:17 Dose: 25 mcg Documented by: Memantine (Namenda -) 5 mg PO BID [facility] Last Admin: 12/11/19 10:15 Dose: 5 mg Documented by: Metoclopramide HCl (Reglan -) 10 mg PO TIDAC [facility] Last Admin: 12/11/19 10:14 Dose: 10 mg Documented by: Mirtazapine (Remeron -) 30 mg PO [facility] Last Admin: 12/10/19 22:01 Dose: Not Given Documented by: Multivitamins/Minerals/Vitamin C (Tab-A-Vit -) 1 tab PO DAILY [facility] Last Admin: 12/11/19 10:14 Dose: 1 tab Documented by: Nifedipine (Procardia Xl -) 120 mg PO DAILY [facility] Last Admin: 12/11/19 10:13 Dose: 120 mg Documented by: Pantoprazole Sodium (Protonix Iv) 40 mg IVPUSH DAILY [facility] Last Admin: 12/11/19 10:15 Dose: 40 mg Documented by: Polyethylene Glycol (Miralax (For Daily Use) -) 17 gm PO BID [facility] Last Admin: 12/11/19 10:14 Dose: Not Given Documented by: Polysaccharide Iron Complex (Niferex-150 -) 150 mg PO DAILY [facility] Last Admin: 12/11/19 10:15 Dose: 150 mg Documented by: Potassium Chloride (K-Dur -) 40 meq PO DAILY [facility] Last Admin: 12/11/19 10:14 Dose: 40 meq Documented by: Senna (Senna -) 2 tab PO HS PRN PRN Reason: CONSTIPATION - Objective Vital Signs: Vital Signs Temperature 98.4 F 12/11/19 10:10 Pulse Rate 72 12/11/19 10:10 Respiratory Rate 20 12/11/19 10:10 Blood Pressure 189/77 H 12/11/19 10:10 O2 Sat by Pulse Oximetry (%) 98 12/11/19 10:10 Constitutional: Yes: Calm Eyes: Yes: Conjunctiva Clear HENT: Yes: Atraumatic Cardiovascular: Yes: S1, S2 Respiratory: Yes: CTA Bilaterally Gastrointestinal: Yes: Soft Musculoskeletal: Yes: WNL Edema: No Neurological: Yes: Oriented Psychiatric: Yes: Oriented Labs: CBC, BMP 12/11/19 06:05 12/11/19 06:05 Problem List - Problems (1) JASPER (acute kidney injury) Code(s): N17.9 - ACUTE KIDNEY FAILURE, UNSPECIFIED (2) CHF (congestive heart failure) Code(s): I50.9 - HEART FAILURE, UNSPECIFIED Qualifiers: Heart failure type: unspecified Heart failure chronicity: acute on chronic Qualified Code(s): I50.9 - Heart failure, unspecified (3) CKD (chronic kidney disease) Code(s): N18.9 - CHRONIC KIDNEY DISEASE, UNSPECIFIED Qualifiers: Chronic kidney disease stage: stage 5, not on chronic dialysis Qualified Code(s): N18.5 - Chronic kidney disease, stage 5 Assessment/Plan Current Medications Generic Name Dose Route Start Last Admin Trade Name Freq PRN Reason Stop Dose Admin Acetaminophen 650 mg 12/06/19 19:39 12/11/19 12:30 Tylenol - PO 650 mg Q4H PRN Administration PAIN 1-6 Aspirin 81 mg 12/07/19 10:00 12/11/19 10:14 Asa - PO 81 mg DAILY JOYCE Administration Atorvastatin Calcium 20 mg 12/05/19 22:00 12/10/19 21:55 Lipitor - PO 20 mg HS JOYCE Administration Donepezil HCl 10 mg 12/05/19 10:30 12/11/19 10:13 Aricept - PO 10 mg DAILY JOYCE Administration Dronabinol 2.5 mg 12/05/19 17:30 12/10/19 17:09 Marinol - PO 2.5 mg 1730 JOYCE Administration Furosemide 40 mg 12/08/19 06:00 12/11/19 06:17 Lasix - PO 40 mg BID@0600,1400 JOYCE Administration Hydralazine HCl 50 mg 12/06/19 22:00 12/11/19 06:17 Apresoline - PO 50 mg TID JOYCE Administration Labetalol HCl 200 mg 12/06/19 22:00 12/11/19 06:17 Normodyne - PO 200 mg TID JOYCE Administration Levothyroxine Sodium 25 mcg 12/07/19 07:00 12/11/19 06:17 Synthroid - PO 25 mcg DAILY@0700 JOYCE Administration Memantine 5 mg 12/06/19 22:00 12/11/19 10:15 Namenda - PO 5 mg BID JOYCE Administration Metoclopramide HCl 10 mg 12/05/19 11:00 12/11/19 10:14 Reglan - PO 10 mg TIDAC JOYCE Administration Mirtazapine 30 mg 12/06/19 22:00 12/10/19 22:01 Remeron - PO Not Given HS [facility] Multivitamins/Minerals/Vitamin C 1 tab 12/05/19 10:30 12/11/19 10:14 Tab-A-Vit - PO 1 tab DAILY JOYCE Administration Nifedipine 120 mg 12/05/19 10:15 12/11/19 10:13 Procardia Xl - PO 120 mg DAILY JOYCE Administration Pantoprazole Sodium 40 mg 12/07/19 10:00 12/11/19 10:15 Protonix Iv IVPUSH 40 mg DAILY JOYCE Administration Polyethylene Glycol 17 gm 12/06/19 22:00 12/11/19 10:14 Miralax (For Daily Use) - PO Not Given BID JOYCE Polysaccharide Iron Complex 150 mg 12/05/19 10:30 12/11/19 10:15 Niferex-150 - PO 150 mg DAILY JOY[facility] Administration Potassium Chloride 40 meq 12/05/19 10:00 12/11/19 10:14 K-Dur - PO 40 meq DAILY JOYCE Administration Senna 2 tab 12/06/19 19:39 Senna - PO HS PRN CONSTIPATION Impression 1. JASPER 2. CKD 3. HLD 4. diverticulosis 5. HTN 6. DM 7. proteinuria 8. hypoalbuminemia 9. UTI 10. pleural effusion 11. chf 12. pericardial effusion without tamponade 13. fluid overload Impression - cont with po lasix - d/c potassium supplements - restart losartan - monitor bp - cardio follow up - avoid nsaids - avoid nephrotoxins
--- NOTE | 2019-12-11 12:49 | PN ---
Progress Note (short form) - Note Progress Note: PULMONARY Remains hypertensive. Denies shortness of breath, chest pain. Vital Signs Period Temp Pulse Resp BP Sys/East Pulse Ox Last 24 Hr 97.8 F-98.7 F 60-75 18-20 141-203/62-91 95-98 Gen: NAD at rest Heart: RRR Lung: decreased breath sounds at the bases Abd: soft, nontender Ext: no edema CBC, BMP 12/11/19 06:05 12/11/19 06:05 Active Medications Acetaminophen (Tylenol -) 650 mg PO Q4H PRN PRN Reason: PAIN 1-6 Last Admin: 12/11/19 12:30 Dose: 650 mg Documented by: Aspirin (Asa -) 81 mg PO DAILY [facility] Last Admin: 12/11/19 10:14 Dose: 81 mg Documented by: Atorvastatin Calcium (Lipitor -) 20 mg PO HS [facility] Last Admin: 12/10/19 21:55 Dose: 20 mg Documented by: Donepezil HCl (Aricept -) 10 mg PO DAILY [facility] Last Admin: 12/11/19 10:13 Dose: 10 mg Documented by: Dronabinol (Marinol -) 2.5 mg PO 1730 [facility] Last Admin: 12/10/19 17:09 Dose: 2.5 mg Documented by: Furosemide (Lasix -) 40 mg PO BID@0600,1400 [facility] Last Admin: 12/11/19 06:17 Dose: 40 mg Documented by: Hydralazine HCl (Apresoline -) 50 mg PO TID [facility] Last Admin: 12/11/19 06:17 Dose: 50 mg Documented by: Labetalol HCl (Normodyne -) 200 mg PO TID [facility] Last Admin: 12/11/19 06:17 Dose: 200 mg Documented by: Levothyroxine Sodium (Synthroid -) 25 mcg PO DAILY@0700 [facility] Last Admin: 12/11/19 06:17 Dose: 25 mcg Documented by: Losartan Potassium (Cozaar -) 25 mg PO DAILY [facility] Memantine (Namenda -) 5 mg PO BID [facility] Last Admin: 12/11/19 10:15 Dose: 5 mg Documented by: Metoclopramide HCl (Reglan -) 10 mg PO TIDAC [facility] Last Admin: 12/11/19 10:14 Dose: 10 mg Documented by: Mirtazapine (Remeron -) 30 mg PO HS [facility] Last Admin: 12/10/19 22:01 Dose: Not Given Documented by: Multivitamins/Minerals/Vitamin C (Tab-A-Vit -) 1 tab PO DAILY [facility] Last Admin: 12/11/19 10:14 Dose: 1 tab Documented by: Nifedipine (Procardia Xl -) 120 mg PO DAILY [facility] Last Admin: 12/11/19 10:13 Dose: 120 mg Documented by: Pantoprazole Sodium (Protonix Iv) 40 mg IVPUSH DAILY [facility] Last Admin: 12/11/19 10:15 Dose: 40 mg Documented by: Polyethylene Glycol (Miralax (For Daily Use) -) 17 gm PO BID [facility] Last Admin: 12/11/19 10:14 Dose: Not Given Documented by: Polysaccharide Iron Complex (Niferex-150 -) 150 mg PO DAILY [facility] Last Admin: 12/11/19 10:15 Dose: 150 mg Documented by: Senna (Senna -) 2 tab PO HS PRN PRN Reason: CONSTIPATION ASSESSMENT AND PLAN: Hypertensive Urgency Acute on Chronic Diastolic Heart Failure UTI Pleural Effusions from above Pericardial Effusion +Troponins likely Demand Ischemia HTN Hyperlipidemia DM Hypothyroidism CKD Anemia Parkinsons Dementia - completed antibiotics - titrate BP meds - O2 to keep SpO2 >90% - continue lasix - monitor urine output, creatinine - DVT prophylaxis
[2019-12-11] MEDS ORDERED: LOSARTAN POTASSIUM 50 MG TABLET (FP) PO SCH (13:30)
[2019-12-11] MEDS: LOSARTAN POTASSIUM 25 MG TABLET PO SCH (13:41)
--- NOTE | 2019-12-11 14:54 | PN ---
Progress Note, Physician Chief Complaint: AWAKE AND IN BED ON REMERON WHICH MAKES HER TIRED IN AM - Current Medication List Current Medications: Active Medications Acetaminophen (Tylenol -) 650 mg PO Q4H PRN PRN Reason: PAIN 1-6 Last Admin: 12/11/19 12:30 Dose: 650 mg Documented by: Aspirin (Asa -) 81 mg PO DAILY [facility] Last Admin: 12/11/19 10:14 Dose: 81 mg Documented by: Atorvastatin Calcium (Lipitor -) 20 mg PO [facility] Last Admin: 12/10/19 21:55 Dose: 20 mg Documented by: Donepezil HCl (Aricept -) 10 mg PO DAILY [facility] Last Admin: 12/11/19 10:13 Dose: 10 mg Documented by: Dronabinol (Marinol -) 2.5 mg PO 1730 [facility] Last Admin: 12/10/19 17:09 Dose: 2.5 mg Documented by: Furosemide (Lasix -) 40 mg PO BID@0600,1400 [facility] Last Admin: 12/11/19 13:41 Dose: 40 mg Documented by: Hydralazine HCl (Apresoline -) 50 mg PO TID [facility] Last Admin: 12/11/19 13:41 Dose: 50 mg Documented by: Labetalol HCl (Normodyne -) 200 mg PO TID [facility] Last Admin: 12/11/19 13:41 Dose: 200 mg Documented by: Levothyroxine Sodium (Synthroid -) 25 mcg PO DAILY@0700 [facility] Last Admin: 12/11/19 06:17 Dose: 25 mcg Documented by: Losartan Potassium (Cozaar -) 25 mg PO DAILY [facility] Last Admin: 12/11/19 13:41 Dose: 25 mg Documented by: Memantine (Namenda -) 5 mg PO BID [facility] Last Admin: 12/11/19 10:15 Dose: 5 mg Documented by: Metoclopramide HCl (Reglan -) 10 mg PO TIDAC [facility] Last Admin: 12/11/19 10:14 Dose: 10 mg Documented by: Mirtazapine (Remeron -) 30 mg PO [facility] Last Admin: 12/10/19 22:01 Dose: Not Given Documented by: Multivitamins/Minerals/Vitamin C (Tab-A-Vit -) 1 tab PO DAILY [facility] Last Admin: 12/11/19 10:14 Dose: 1 tab Documented by: Nifedipine (Procardia Xl -) 120 mg PO DAILY [facility] Last Admin: 12/11/19 10:13 Dose: 120 mg Documented by: Pantoprazole Sodium (Protonix Iv) 40 mg IVPUSH DAILY [facility] Last Admin: 12/11/19 10:15 Dose: 40 mg Documented by: Polyethylene Glycol (Miralax (For Daily Use) -) 17 gm PO BID [facility] Last Admin: 12/11/19 10:14 Dose: Not Given Documented by: Polysaccharide Iron Complex (Niferex-150 -) 150 mg PO DAILY [facility] Last Admin: 12/11/19 10:15 Dose: 150 mg Documented by: Senna (Senna -) 2 tab PO HS PRN PRN Reason: CONSTIPATION - Objective Vital Signs: Vital Signs Temperature 97.5 F L 12/11/19 14:34 Pulse Rate 61 12/11/19 14:34 Respiratory Rate 20 12/11/19 14:34 Blood Pressure 129/80 12/11/19 14:34 O2 Sat by Pulse Oximetry (%) 96 12/11/19 14:34 Constitutional: Yes: Mild Distress Cardiovascular: Yes: Pulse Irregular Respiratory: Yes: Diminished Gastrointestinal: Yes: Soft, Abdomen, Obese Genitourinary: Yes: Incontinence Musculoskeletal: Yes: Muscle Weakness Edema: Yes Edema: LLE: Trace, RLE: Trace Neurological: Yes: Pre-Existing Deficit Labs: CBC, BMP 12/11/19 06:05 12/11/19 06:05 Problem List - Problems (1) Acute on chronic renal failure Code(s): N17.9 - ACUTE KIDNEY FAILURE, UNSPECIFIED; N18.9 - CHRONIC KIDNEY DISEASE, UNSPECIFIED (2) CHF (congestive heart failure) Code(s): I50.9 - HEART FAILURE, UNSPECIFIED Qualifiers: Heart failure type: unspecified Heart failure chronicity: acute on chronic Qualified Code(s): I50.9 - Heart failure, unspecified (3) NSTEMI (non-ST elevated myocardial infarction) Code(s): I21.4 - NON-ST ELEVATION (NSTEMI) MYOCARDIAL INFARCTION (4) SOB (shortness of breath) Code(s): R06.02 - SHORTNESS OF BREATH (5) Abdominal pain Code(s): R10.9 - UNSPECIFIED ABDOMINAL PAIN Qualifiers: Abdominal location: generalized Qualified Code(s): R10.84 - Generalized abdominal pain (6) Acute on chronic diastolic heart failure Code(s): I50.33 - ACUTE ON CHRONIC DIASTOLIC (CONGESTIVE) HEART FAILURE (7) Anemia Code(s): D64.9 - ANEMIA, UNSPECIFIED (8) Diabetes mellitus with autonomic neuropathy Code(s): E11.43 - TYPE 2 DIABETES W DIABETIC AUTONOMIC (POLY)NEUROPATHY Assessment/Plan LABS REVIEWED RENAL FUNCTION CRI NEPHROLOGY EVAL APPRECIATED IVF STARTED FOR GENTLE HYDRATION. ANEMIA STABLE CXR PENDING TODAY GI EVAL STILL UNCLEAR NEED A PLAN DC PLANNING IN AM
--- NOTE | 2019-12-11 15:02 | PN.GI ---
GI Progress Note Subjective: Pt seen and examined by Dr Ibanez. Pt denies abdominal pain, nausea, vomiting. Following up on 79 year old female with PMH of CHF, diverticulosis, gastritis admitted with exacerbation of CHF, pericardial effusion, c/o lower abdominal pain. The pt is a poor informant. She denies melena and rectal bleeding. Her last colonoscopy was in 2018, which revealed diverticulosis. - Objective Vital Signs: Vital Signs Temperature 97.5 F L 12/11/19 14:34 Pulse Rate 61 12/11/19 14:34 Respiratory Rate 20 12/11/19 14:34 Blood Pressure 129/80 12/11/19 14:34 O2 Sat by Pulse Oximetry (%) 96 12/11/19 14:34 Constitutional: No Distress, Calm Eyes: Yes: WNL HENT: Yes: WNL Neck: Yes: Supple, Trachea Midline Cardiovascular: Yes: Regular Rate and Rhythm Respiratory: Yes: Regular, CTA Bilaterally Gastrointestinal Inspection: Yes: WNL. No: Distention ...Auscultate: Yes: Normoactive Bowel Sounds ...Palpate: Yes: Soft. No: Firm/Rigid, Guarding, Hepatomegaly, Mass, Pulsatile Mass, Splenomegaly, Tenderness Labs: CBC, BMP 12/11/19 06:05 12/11/19 06:05 Problem List - Problems (1) Abdominal pain Assessment/Plan: r/o secondary to ischemia, SIBO, diverticular spasm Zofran 4mg as needed for nausea r/o secondary to memantine consider to decrease mirtzapine to 7.5mg keep hydrated advance diet as tolerated maintain on PPI Code(s): R10.9 - UNSPECIFIED ABDOMINAL PAIN Qualifiers: Abdominal location: generalized Qualified Code(s): R10.84 - Generalized abdominal pain
[2019-12-11] MEDS: DRONABINOL 2.5 MG CAPSULE PO SCH (17:29)
[2019-12-11] MEDS: MIRTAZAPINE 15 MG TABLET (FP) PO SCH (21:59)
[2019-12-11] MEDS: ATORVASTATIN CA 20 MG TABLET (FP) PO SCH (21:59)
[2019-12-12] MEDS: hydrALAZINE HCL 50 MG TABLET (FP) PO SCH ×2 (06:02→13:25)
[2019-12-12] MEDS: LABETALOL HCL 200 MG TABLET (FP) PO SCH ×2 (06:02→13:25)
[2019-12-12] MEDS: LEVOTHYROXINE NA 25 MCG TABLET (FP) PO SCH (06:02)
[2019-12-12] MEDS: FUROSEMIDE 40 MG TABLET (FP) PO SCH ×2 (06:02→13:25)
[2019-12-12] MEDS: METOCLOPRAMIDE HCL 10 MG TABLET (FP) PO SCH ×2 (06:03→11:46)
[2019-12-12 07:07] LABS: BLOOD UREA NITROGEN 40.3 mg/dL (7-18); CALCIUM 8.7 mg/dL (8.5-10.1); CREATININE 2.1 mg/dL (0.55-1.3); POTASSIUM 4.8 mmol/L (3.5-5.1)
--- NOTE | 2019-12-12 07:33 | PN ---
Progress Note, Physician History of Present Illness: pulmonary alert,comfortable ,dyspnea improved - Current Medication List Current Medications: Active Medications Acetaminophen (Tylenol -) 650 mg PO Q4H PRN PRN Reason: PAIN 1-6 Last Admin: 12/11/19 12:30 Dose: 650 mg Documented by: Aspirin (Asa -) 81 mg PO DAILY [facility] Last Admin: 12/11/19 10:14 Dose: 81 mg Documented by: Atorvastatin Calcium (Lipitor -) 20 mg PO [facility] Last Admin: 12/11/19 21:59 Dose: 20 mg Documented by: Donepezil HCl (Aricept -) 10 mg PO DAILY [facility] Last Admin: 12/11/19 10:13 Dose: 10 mg Documented by: Dronabinol (Marinol -) 2.5 mg PO 1730 [facility] Last Admin: 12/11/19 17:29 Dose: 2.5 mg Documented by: Furosemide (Lasix -) 40 mg PO BID@0600,1400 [facility] Last Admin: 12/12/19 06:02 Dose: 40 mg Documented by: Hydralazine HCl (Apresoline -) 50 mg PO TID [facility] Last Admin: 12/12/19 06:02 Dose: 50 mg Documented by: Labetalol HCl (Normodyne -) 200 mg PO TID [facility] Last Admin: 12/12/19 06:02 Dose: 200 mg Documented by: Levothyroxine Sodium (Synthroid -) 25 mcg PO DAILY@0700 [facility] Last Admin: 12/12/19 06:02 Dose: 25 mcg Documented by: Losartan Potassium (Cozaar -) 25 mg PO DAILY [facility] Last Admin: 12/11/19 13:41 Dose: 25 mg Documented by: Memantine (Namenda -) 5 mg PO BID [facility] Last Admin: 12/11/19 21:59 Dose: 5 mg Documented by: Metoclopramide HCl (Reglan -) 10 mg PO TIDAC [facility] Last Admin: 12/12/19 06:03 Dose: 10 mg Documented by: Mirtazapine (Remeron -) 30 mg PO [facility] Last Admin: 12/11/19 21:59 Dose: 30 mg Documented by: Multivitamins/Minerals/Vitamin C (Tab-A-Vit -) 1 tab PO DAILY [facility] Last Admin: 12/11/19 10:14 Dose: 1 tab Documented by: Nifedipine (Procardia Xl -) 120 mg PO DAILY [facility] Last Admin: 12/11/19 10:13 Dose: 120 mg Documented by: Pantoprazole Sodium (Protonix Iv) 40 mg IVPUSH DAILY [facility] Last Admin: 12/11/19 10:15 Dose: 40 mg Documented by: Polyethylene Glycol (Miralax (For Daily Use) -) 17 gm PO BID [facility] Last Admin: 12/11/19 21:59 Dose: Not Given Documented by: Polysaccharide Iron Complex (Niferex-150 -) 150 mg PO DAILY [facility] Last Admin: 12/11/19 10:15 Dose: 150 mg Documented by: Senna (Senna -) 2 tab PO HS PRN PRN Reason: CONSTIPATION - Objective Vital Signs: Vital Signs Temperature 97.9 F 12/12/19 06:00 Pulse Rate 72 12/12/19 06:00 Respiratory Rate 18 12/12/19 06:00 Blood Pressure 186/81 H 12/12/19 06:00 O2 Sat by Pulse Oximetry (%) 100 12/12/19 06:00 Constitutional: Yes: Well Nourished, Calm Eyes: Yes: WNL HENT: Yes: WNL Neck: Yes: WNL Cardiovascular: Yes: Regular Rate and Rhythm, S1, S2 Respiratory: Yes: Diminished Gastrointestinal: Yes: Normal Bowel Sounds, Soft Extremities: Yes: WNL Edema: No Labs: CBC, BMP 12/11/19 06:05 12/12/19 05:40 Assessment/Plan ASSESSMENT AND PLAN: Hypertensive Urgency Acute on Chronic Diastolic Heart Failure UTI Pleural Effusions from above Pericardial Effusion +Troponins likely Demand Ischemia HTN Hyperlipidemia DM Hypothyroidism CKD Anemia Parkinsons Dementia - completed antibiotics - titrate BP meds - O2 to keep SpO2 >90% - lasix - monitor urine output, creatinine - DVT prophylaxis DR CAMPA
--- NOTE | 2019-12-12 07:50 | DS ---
Physical Examination Vital Signs: Vital Signs Temperature 97.9 F 12/12/19 06:00 Pulse Rate 72 12/12/19 06:00 Respiratory Rate 18 12/12/19 06:00 Blood Pressure 186/81 H 12/12/19 06:00 O2 Sat by Pulse Oximetry (%) 100 12/12/19 06:00 Findings/Remarks: awake alert denies chest pain, breathing better Constitutional: Yes: Mild Distress Eyes: Yes: WNL HENT: Yes: WNL, Tonsillar Exudate Cardiovascular: Yes: Pulse Irregular Respiratory: Yes: Diminished, On Nasal O2 Gastrointestinal: Yes: Soft, Abdomen, Obese Renal/: Yes: Incontinence Musculoskeletal: Yes: Muscle Weakness Neurological: Yes: Pre-Existing Deficit Labs: CBC, BMP 12/11/19 06:05 12/12/19 05:40 Discharge Summary Problems reviewed: Yes Reason For Visit: NON ST ELEVATION MYOCARDIAL INFARCTION NSTEMI Current Active Problems JASPER (acute kidney injury) (Acute) Acute on chronic renal failure (Acute) CHF (congestive heart failure) (Acute) CKD (chronic kidney disease) (Acute) NSTEMI (non-ST elevated myocardial infarction) (Acute) SOB (shortness of breath) (Acute) Procedures: Principal: ct cans. labs Hospital Course: admitted with chronic medical problems, CHF, CRI, IBS, IBS, Dementia, Arthritis. treated with diuretics, 02 support, iv abx, culutres reviewed. Chronically ill patient I discussed with her daughter needs a strong support group at home and 02 portable for home use Plan of Treatment: daily weights home oxygen lifestyle and diet restrictions Condition: Fair - Instructions Diet, Activity, Other Instructions: Strict sodium restrictions, water/fluid restrictions 50oz per dy daily weights, if weight above 135lbs call Dr Espana and increase the furosemide Dr Yu needs to be involved with outpatient care nephrology Referrals: Ro Espana MD [Primary Care Provider] - Disposition: VNS/HOME HEALTH CARE - Home Medications Comprehensive Discharge Medication List: Ambulatory Orders Levothyroxine [Synthroid -] 25 mcg PO DAILY 04/24/19 Aspirin 81 mg PO DAILY 04/25/19 Atorvastatin Ca [Lipitor] 20 mg PO HS 04/25/19 Bupropion HCl [Wellbutrin -] 150 mg PO DAILY 04/25/19 Hydralazine HCl 25 mg PO TID 04/25/19 Labetalol HCl [Normodyne -] 400 mg PO TID 04/25/19 Lipase/Protease/Amylase [Elaine Sweeney 36,000 Units Capsule] 1 each PO TID 04/25/19 Mirtazapine 30 mg PO HS 04/25/19 Potassium Chloride 20 meq PO DAILY 04/25/19 Diclofenac Sodium 75 mg PO DAILY 11/23/19 Memantine HCl/Donepezil HCl [Namzaric 14 mg-10 mg Capsule] 1 cap PO DAILY 11/23/19 traZODone HCL [Trazodone HCl] 50 mg PO HS 11/23/19 Acetaminophen [Tylenol .Regular Strength -] 650 mg PO Q4H PRN tablet 12/02/19 Albuterol Sulfate Inhaler - [Ventolin HFA Inhaler -] 2 puff IH Q6H PRN inhaler 12/02/19 Dicyclomine HCl [Bentyl -] 10 mg PO Q6H PRN capsule 12/02/19 Dronabinol [Marinol -] 2.5 mg PO DAILY capsule 12/02/19 Iron Polysaccharides [Niferex-150 -] 150 mg PO DAILY #30 capsule 12/02/19 Labetalol HCl [Normodyne -] 200 mg PO TID tablet 12/02/19 Mag Hydrox/Al Hydrox/Simeth [Mylanta Oral Suspension -] 30 ml PO Q6H PRN #1 bot 12/02/19 Metoclopramide HCl [Reglan -] 10 mg PO TIDAC #90 tablet 12/02/19 Multivitamins [Multivit ([facility] Formulary)] 1 tab PO DAILY #30 tab 12/02/19 Pantoprazole Sodium [Protonix -] 20 mg PO DAILY #30 tablet.ec 12/02/19 Polyethylene Glycol 3350 [Miralax 119 gm Btl -] 17 gm PO BID bottle 12/02/19 Sennosides [Senna -] 2 tab PO HS #60 tablet 12/02/19 Torsemide [Demadex -] 40 mg PO DAILY #60 tablet 12/02/19 hydrALAZINE HCL [Apresoline -] 50 mg PO TID tablet 12/02/19 Nifedipine ER [Procardia XL -] 60 mg PO BID 12/04/19 Olmesartan Medoxomil [Benicar (Nf)] 40 mg PO DAILY 12/04/19
[2019-12-12] MEDS ORDERED: PT OWN MED DRAWER 7, Y5N ONE (08:38)
[2019-12-12] MEDS: MULTIVITAMINS (DAILY MVI) TABLET (FP) PO SCH (09:00)
[2019-12-12] MEDS: ASPIRIN 81 MG CHEWABLE TABLETS PO SCH (09:00)
[2019-12-12] MEDS: LOSARTAN POTASSIUM 25 MG TABLET PO SCH (09:00)
[2019-12-12] MEDS: PANTOPRAZOLE SODIUM 40 MG VIAL IVPUSH SCH (09:00)
[2019-12-12] MEDS: POLYETHYLENE GLYCOL 3350 119 GM BTL PO SCH (09:01)
[2019-12-12] MEDS: NIFEdipine E.R 60 MG TABLET PO SCH (09:01)
[2019-12-12] MEDS: DONEPEZIL HCL 10 MG TABLET (FP) PO SCH (09:01)
[2019-12-12] MEDS: MEMANTINE HCL 5 MG TABLET (UD) PO SCH (09:02)
[2019-12-12] MEDS: IRON POLYSACCHARIDES 150 MG CAPSULE PO SCH (09:02)
--- NOTE | 2019-12-12 12:26 | PN ---
Progress Note, Physician History of Present Illness: Pt seen and examined at bedside. She is awake and alert. SHe denies shortness of breath. - Current Medication List Current Medications: Active Medications Acetaminophen (Tylenol -) 650 mg PO Q4H PRN PRN Reason: PAIN 1-6 Last Admin: 12/11/19 12:30 Dose: 650 mg Documented by: Aspirin (Asa -) 81 mg PO DAILY [facility] Last Admin: 12/12/19 09:00 Dose: 81 mg Documented by: Atorvastatin Calcium (Lipitor -) 20 mg PO [facility] Last Admin: 12/11/19 21:59 Dose: 20 mg Documented by: Donepezil HCl (Aricept -) 10 mg PO DAILY [facility] Last Admin: 12/12/19 09:01 Dose: 10 mg Documented by: Dronabinol (Marinol -) 2.5 mg PO 1730 [facility] Last Admin: 12/11/19 17:29 Dose: 2.5 mg Documented by: Furosemide (Lasix -) 40 mg PO BID@0600,1400 [facility] Last Admin: 12/12/19 06:02 Dose: 40 mg Documented by: Hydralazine HCl (Apresoline -) 50 mg PO TID [facility] Last Admin: 12/12/19 06:02 Dose: 50 mg Documented by: Labetalol HCl (Normodyne -) 200 mg PO TID [facility] Last Admin: 12/12/19 06:02 Dose: 200 mg Documented by: Levothyroxine Sodium (Synthroid -) 25 mcg PO DAILY@0700 [facility] Last Admin: 12/12/19 06:02 Dose: 25 mcg Documented by: Losartan Potassium (Cozaar -) 25 mg PO DAILY [facility] Last Admin: 12/12/19 09:00 Dose: 25 mg Documented by: Memantine (Namenda -) 5 mg PO BID [facility] Last Admin: 12/12/19 09:02 Dose: 5 mg Documented by: Metoclopramide HCl (Reglan -) 10 mg PO TIDAC [facility] Last Admin: 12/12/19 11:46 Dose: 10 mg Documented by: Mirtazapine (Remeron -) 30 mg PO [facility] Last Admin: 12/11/19 21:59 Dose: 30 mg Documented by: Multivitamins/Minerals/Vitamin C (Tab-A-Vit -) 1 tab PO DAILY [facility] Last Admin: 12/12/19 09:00 Dose: 1 tab Documented by: Nifedipine (Procardia Xl -) 120 mg PO DAILY [facility] Last Admin: 12/12/19 09:01 Dose: 120 mg Documented by: Pantoprazole Sodium (Protonix Iv) 40 mg IVPUSH DAILY [facility] Last Admin: 12/12/19 09:00 Dose: 40 mg Documented by: Polyethylene Glycol (Miralax (For Daily Use) -) 17 gm PO BID [facility] Last Admin: 12/12/19 09:01 Dose: Not Given Documented by: Polysaccharide Iron Complex (Niferex-150 -) 150 mg PO DAILY [facility] Last Admin: 12/12/19 09:02 Dose: 150 mg Documented by: Senna (Senna -) 2 tab PO HS PRN PRN Reason: CONSTIPATION - Objective Vital Signs: Vital Signs Temperature 98 F 12/12/19 09:11 Pulse Rate 66 12/12/19 09:11 Respiratory Rate 18 12/12/19 09:11 Blood Pressure 185/72 H 12/12/19 09:11 O2 Sat by Pulse Oximetry (%) 97 12/12/19 10:00 Constitutional: Yes: Calm Eyes: Yes: Conjunctiva Clear HENT: Yes: Atraumatic Cardiovascular: Yes: S1, S2 Respiratory: Yes: CTA Bilaterally Gastrointestinal: Yes: Soft Genitourinary: Yes: WNL Musculoskeletal: Yes: WNL Edema: No Neurological: Yes: Oriented Psychiatric: Yes: Oriented Labs: CBC, BMP 12/11/19 06:05 12/12/19 05:40 Problem List - Problems (1) JASPER (acute kidney injury) Code(s): N17.9 - ACUTE KIDNEY FAILURE, UNSPECIFIED (2) CHF (congestive heart failure) Code(s): I50.9 - HEART FAILURE, UNSPECIFIED Qualifiers: Heart failure type: unspecified Heart failure chronicity: acute on chronic Qualified Code(s): I50.9 - Heart failure, unspecified (3) CKD (chronic kidney disease) Code(s): N18.9 - CHRONIC KIDNEY DISEASE, UNSPECIFIED Qualifiers: Chronic kidney disease stage: stage 5, not on chronic dialysis Qualified Code(s): N18.5 - Chronic kidney disease, stage 5 Assessment/Plan Current Medications Generic Name Dose Route Start Last Admin Trade Name Freq PRN Reason Stop Dose Admin Acetaminophen 650 mg 12/06/19 19:39 12/11/19 12:30 Tylenol - PO 650 mg Q4H PRN Administration PAIN 1-6 Aspirin 81 mg 12/07/19 10:00 12/12/19 09:00 Asa - PO 81 mg DAILY JOYCE Administration Atorvastatin Calcium 20 mg 12/05/19 22:00 12/11/19 21:59 Lipitor - PO 20 mg HS JOYCE Administration Donepezil HCl 10 mg 12/05/19 10:30 12/12/19 09:01 Aricept - PO 10 mg DAILY JOYCE Administration Dronabinol 2.5 mg 12/05/19 17:30 12/11/19 17:29 Marinol - PO 2.5 mg 1730 JOYCE Administration Furosemide 40 mg 12/08/19 06:00 12/12/19 06:02 Lasix - PO 40 mg BID@0600,1400 JOYCE Administration Hydralazine HCl 50 mg 12/06/19 22:00 12/12/19 06:02 Apresoline - PO 50 mg TID JOYCE Administration Labetalol HCl 200 mg 12/06/19 22:00 12/12/19 06:02 Normodyne - PO 200 mg TID JOYCE Administration Levothyroxine Sodium 25 mcg 12/07/19 07:00 12/12/19 06:02 Synthroid - PO 25 mcg DAILY@0700 JOYCE Administration Losartan Potassium 25 mg 12/11/19 13:30 12/12/19 09:00 Cozaar - PO 25 mg DAILY JOYCE Administration Memantine 5 mg 12/06/19 22:00 12/12/19 09:02 Namenda - PO 5 mg BID JOYCE Administration Metoclopramide HCl 10 mg 12/05/19 11:00 12/12/19 11:46 Reglan - PO 10 mg TIDAC JOYCE Administration Mirtazapine 30 mg 12/06/19 22:00 12/11/19 21:59 Remeron - PO 30 mg HS JOYCE Administration Multivitamins/Minerals/Vitamin C 1 tab 12/05/19 10:30 12/12/19 09:00 Tab-A-Vit - PO 1 tab DAILY JOYCE Administration Nifedipine 120 mg 12/05/19 10:15 12/12/19 09:01 Procardia Xl - PO 120 mg DAILY JOYCE Administration Pantoprazole Sodium 40 mg 12/07/19 10:00 12/12/19 09:00 Protonix Iv IVPUSH 40 mg DAILY JOYCE Administration Polyethylene Glycol 17 gm 12/06/19 22:00 12/12/19 09:01 Miralax (For Daily Use) - PO Not Given BID JOYCE Polysaccharide Iron Complex 150 mg 12/05/19 10:30 12/12/19 09:02 Niferex-150 - PO 150 mg DAILY JOYCE Administration Senna 2 tab 12/06/19 19:39 Senna - PO HS PRN CONSTIPATION Impression 1. JASPER 2. CKD 3. HLD 4. diverticulosis 5. HTN 6. DM 7. proteinuria 8. hypoalbuminemia 9. UTI 10. pleural effusion 11. chf 12. pericardial effusion without tamponade 13. fluid overload Impression - cont losartan - monitor lytes - cont lasix - monitor volume status - arb should help with proteinuria - will need outpt follow up - avoid nsaids - avoid nephrotoxins
--- NOTE | 2019-12-12 14:17 | PN.GI ---
GI Progress Note Subjective: Pt seen and examined at bedside. Pt denies abdominal pain, nausea, vomiting. She denies melena and rectal bleeding. - Objective Vital Signs: Vital Signs Temperature 98 F 12/12/19 09:11 Pulse Rate 66 12/12/19 09:11 Respiratory Rate 18 12/12/19 09:11 Blood Pressure 185/72 H 12/12/19 09:11 O2 Sat by Pulse Oximetry (%) 97 12/12/19 10:00 Constitutional: Well Nourished, No Distress, Calm Eyes: Yes: WNL, Conjunctiva Clear HENT: Yes: WNL, Atraumatic, Normocephalic Neck: Yes: WNL, Supple, Trachea Midline Cardiovascular: Yes: WNL, Regular Rate and Rhythm Respiratory: Yes: Regular, CTA Bilaterally Gastrointestinal Inspection: Yes: WNL ...Auscultate: Yes: Normoactive Bowel Sounds ...Palpate: Yes: Soft. No: Firm/Rigid, Guarding, Hepatomegaly, Mass, Pulsatile Mass, Splenomegaly, Tenderness Labs: CBC, BMP 12/11/19 06:05 12/12/19 05:40 Problem List - Problems (1) Abdominal pain Assessment/Plan: plan discussed with Dr Ibanez maintain on PPI start creon 36,000 units TID with meals Code(s): R10.9 - UNSPECIFIED ABDOMINAL PAIN Qualifiers: Abdominal location: generalized Qualified Code(s): R10.84 - Generalized abdominal pain
[2019-12-12 14:53] VITALS: BP 126/51; PULSE 65; TEMP 98.3
--- NOTE | 2019-12-13 10:05 | EKG ---
Test Reason : Blood Pressure : / mmHG Vent. Rate : 063 BPM Atrial Rate : 063 BPM P-R Int : 192 ms QRS Dur : 100 ms QT Int : 414 ms P-R-T Axes : 031 -50 055 degrees QTc Int : 423 ms NORMAL SINUS RHYTHM LEFT ANTERIOR FASCICULAR BLOCK SEPTAL INFARCT , AGE UNDETERMINED ABNORMAL ECG WHEN COMPARED WITH ECG OF 04-DEC-2019 00:29, SEPTAL INFARCT IS NOW PRESENT NONSPECIFIC T WAVE ABNORMALITY, WORSE IN LATERAL LEADS Confirmed by Allen Guardado ([id number]) on 12/13/2019 10:04:48 AM Referred By: Confirmed By:Allen Guardado
== END 2019-12-12 16:45 | disposition home or self-care (01) | DRG 291 ==
LOC: JER 20:28 → JERBED 23:04 → JICU 12-04 02:50 → J4S 12-07 00:19
PROVIDERS: ADMIT Family Medicine; ATTEND Family Medicine
DX: I13.2 Hypertensive heart and chronic kidney disease with heart failure and with stage 5 chronic kidney disease, or end stage renal disease (principal); I50.33 Acute on chronic diastolic (congestive) heart failure; N17.9 Acute kidney failure, unspecified; N18.5 Chronic kidney disease, stage 5; N39.0 Urinary tract infection, site not specified; I31.3 Pericardial effusion (noninflammatory); I24.8 Other forms of acute ischemic heart disease; E78.5 Hyperlipidemia, unspecified; G20 Parkinson's disease; F03.90 Unspecified dementia, unspecified severity, without behavioral disturbance, psychotic disturbance, mood disturbance, and anxiety; I16.0 Hypertensive urgency; E87.6 Hypokalemia; E11.42 Type 2 diabetes mellitus with diabetic polyneuropathy; K57.90 Diverticulosis of intestine, part unspecified, without perforation or abscess without bleeding; F41.9 Anxiety disorder, unspecified; E11.22 Type 2 diabetes mellitus with diabetic chronic kidney disease; D64.9 Anemia, unspecified; D63.1 Anemia in chronic kidney disease; E03.9 Hypothyroidism, unspecified; M19.90 Unspecified osteoarthritis, unspecified site; R74.8 Abnormal levels of other serum enzymes; R10.84 Generalized abdominal pain
CPT/HCPCS: 36415; 36430; 71045-TC-FY; 74018-TC-FY; 74190-TC-FY; 80048; 80053; 81003; 82272; 82550; 82962; 83605; 83735; 83880; 84100; 84484; 85025; 85027; 85730; 86850; 86900; 86901; 86922; 87040; 87086; 87899; 93005; 93010; 93306-TC; 94660; 97116-GP; 97161-GP; 99285-25; J1644; P9058; U0003

== ENCOUNTER 2019-12-18 22:15 | Inpatient (IN) | payer OTHER ==
--- OUTSIDE RECORDS SUMMARY | 2019-12-18 22:27 | XMS ---
:1940 Author [facility] Care Team Providers Name Role Phone [facility], [facility] Unavailable Unavailable Re-disclosure Warning The records that you are about to access may contain information from federally- assisted alcohol or drug abuse programs. If such information is present, then the following federally mandated warning applies: This information has been disclosed to you from records protected by federal confidentiality rules (42 CFR part 2). The federal rules prohibit you from making any further disclosure of this information unless further disclosure is expressly permitted by the written consent of the person to whom it pertains or as otherwise permitted by 42 CFR part 2. A general authorization for the release of medical or other information is NOT sufficient for this purpose. The Federal rules restrict any use of the information to criminally investigate or prosecute any alcohol or drug abuse patient.The records that you are about to access may contain highly sensitive health information, the redisclosure of which is protected by Article 27-F of the [facility] Public Health law. If you continue you may haveaccess to information: Regarding HIV / AIDS; Provided by facilities licensed or operated by the [facility] Office of Mental Health; or Provided by the [place] State Office for People With Developmental Disabilities. If such information is present, then the following [facility] mandated warning applies: This information has been disclosed to you from confidential records which are protected by state law. State law prohibits you from making any further disclosure of this information without the specific written consent of the person to whom it pertains, or as otherwise permitted by law. Any unauthorized further disclosure in violation of state law may result in a fine or long-term sentence or both. A general authorization for the release of medical or other information is NOT sufficient authorization for further disclosure. Encounters Encounter Providers Location Date Indications Data Source(s ) Outpatient Attender: H[facility]ARR ALL 05/15/2019 [facility] 11:37:02 AM ([facility]) Emergency H 07/20/2018 [place] 04:04:00 AM [facility] EDT Outpatient 06/10/2018 [facility] [facility] 08:11:00 AM [facility]) Outpatient ALL 01/14/2018 [facility] Outpatient ALL 12/31/2017 [facility]03[facility] Outpatient ALL 10/15/2017 [facility] 08:06[facility] Insurance Providers Payer name Policy type Policy ID Covered Covered green party's Policy P matt / Coverage green party ID relationship to [employer] [facility] or[employer]ation type [place] MEDICAID [id number] SP [id number] MEDICARE [id number] SP [id number] W [id number] 01 [id number] 01 [id number] MEDICAID W [id number] MEDICAID [id number] Problems, Conditions, and Diagnoses Code Display Name Description Problem Type Effective Data Sour ce(s) Dates I50.9 Heart failure, HEART FAILURE, Diagnosis 07/20/2018 [place] unspecified UNSPECIFIED 04:04:[address] EDT I10 Essential ESSENTIAL Diagnosis 07/20/2018 [place] (primary) (PRIMARY) 04:04:00 AM Medical Cente r hypertension HYPERTENSION EDT E11.649 Type 2 diabetes TYPE 2 DIABETES Diagnosis 07/20/2018 [facility] Martinez mellitus with MELLITUS WITH 04:04:00 AM Medical Center hypoglycemia HYPOGLYCEMIA EDT without coma WITHOUT COMA Results ID Date Data Source [id number] 12/04/2019 12:04:00 AM EDT [facility] Name Value Range Interpretation Description Data Sup porting Code Source(s) Document(s ) SARS [facility] coronavirus 2 RNA This lab was ordered by [facility] and reported by [facility]. ID Date Data Source [id number] 11/23/2019 10:20:00 PM EDT [facility] Name Value Range Interpretation Description Data Sup porting Code Source(s) Document(s ) SARS [facility] coronavirus 2 RNA This lab was ordered by [facility] and reported by [facility]. ID Date Data Source Liver Profile 07/20/2018 04:44:00 AM EDT [facility] Name Value Range Interpretation Description Data Sup porting Code Source(s) Document(s ) Aspartate 14-36 <content [facility] aminotransferase styleCode="Bold"> [facility] [Enzymatic Aspartate Medical activity/volume] Aminotransferase Center in Serum or Plasma (AST) </content>23 IU/L<content styleCode="Italic s"> (14-36 IU/L)</content> Bilirubin.total 0.2-1.3 <content [facility] [Mass/volume] in styleCode="Bold"> [facility] Serum or Plasma Bilirubin Total Medical </content>0.3 Center MG/DL<content styleCode="Italic s"> (0.2-1.3 MG/DL)</content> Alkaline 38-126 <content [facility] phosphatase styleCode="Bold"> [facility] [Enzymatic Alkaline Medical activity/volume] Phosphatase (ALP) Cente r in Serum or Plasma </content>72 IU/L<content styleCode="Italic s"> (38-126 IU/L)</content> Albumin 3.5-5.0 Below low <content [facility] [Mass/volume] in normal styleCode="Bold"> [facility] hs Serum or Plasma Albumin Medical </content>3.3 Center G/DL L<content styleCode="Italic s"> (3.5-5.0 G/DL)</content> Alanine 7-30 <content [facility] aminotransferase styleCode="Bold"> [facility] [Enzymatic Alanine Medical activity/volume] Aminotransferase Center in Serum or Plasma (ALT) </content>12 IU/L<content styleCode="Italic s"> (7-30 IU/L)</content> ID Date Data Source HematologyRou 07/20/2018 04:44:00 AM EDT [facility] Name Value Range Interpretation Description Data Sup porting Code Source(s) Document(s ) Leukocytes 4.4-11.0 <content [facility] [#/volume] in styleCode="[place] Blood by ">White Blood Medical Automated count Cell Count Center </content>7.86 KCUMM<content styleCode="Ital ics"> (4.4-11.0 KCUMM)</content > Erythrocyte mean 32.0-37. <content [facility] corpuscular 0 styleCode="[place] [place] hemoglobin ">Mean Corpus. Medical concentration Hgb Center [Mass/volume] by Concentration Automated count (MCHC) </content>33.6 G/DL<content styleCode="Ital ics"> (32.0-37.0 G/DL)</content> Hemoglobin 12.3-16. Below low normal <content [facility] [Mass/volume] in 0 styleCode="[place] [place] Blood ">Hemoglobin Medical </content>9.1 Center G/DL L<content styleCode="Ital ics"> (12.3-16.0 G/DL)</content> Erythrocytes 4.0-5.1 Below low normal <content Saint [#/volume] in styleCode="[place] Blood by ">Red Blood Medical Automated count Cell Count Center </content>3.50 MCUMM L<content styleCode="Ital ics"> (4.0-5.1 MCUMM)</content > Erythrocyte mean 26.0-34. <content [facility] corpuscular 0 styleCode="[place] hemoglobin ">Mean Medical [Entitic mass] Corposcular Center by Automated Hemoglobin count </content>26.0 PG<content styleCode="Ital ics"> (26.0-34.0 PG)</content> Erythrocyte mean 80.0-100 <content [facility] corpuscular .0 styleCode="[place] [place] volume [Entitic ">Mean Medical volume] by Corpuscular Center Automated count Volume </content>77.4 FL<content styleCode="Ital ics"> (80.0-100.0 FL)</content> Hematocrit 36.0-46. Below low normal <content Saint [Volume 0 styleCode="[facility] [place] Fraction] of ">Hematocrit Medical Blood by </content>27.1 Center Automated count % L<content styleCode="Ital ics"> (36.0-46.0 %)</content> Platelet mean 8.0-11.0 <content [facility] volume [Entitic styleCode="[facility] [place] volume] in Blood ">Mean Platelet Medical by Automated Volume Center count </content>9.1 FL<content styleCode="Ital ics"> (8.0-11.0 FL)</content> UNK 0.0 <content Saint styleCode="[place] [place] ">Nucleated Red Medical Blood Cell Center Count </content>0.00 KCUMM<content styleCode="Ital ics"> (0.0 KCUMM)</content > Platelets 130-400 <content Saint [#/volume] in styleCode="[place] Blood by ">Platelet Medical Automated count Count Center </content>381 KCUMM<content styleCode="Ital ics"> (130-400 KCUMM)</content > Erythrocyte 11.5-14. Above high <content [facility] distribution 5 normal styleCode="[place] [place] width [Ratio] by ">Red Cell Medical Automated count Distribution Center Width </content>18.2 % H<content styleCode="Ital ics"> (11.5-14.5 %)</content> UNK 0 <content Saint styleCode="Bold Juna ">Nucleated Red Medical Blood Cell Center </content>0.0 /100<content styleCode="Ital ics"> (0 /100)</content> ID Date Data Source GFR(Creatinine) 07/20/2018 04:44:00 AM EDT [facility] Name Value Range Interpretation Code Description Data Taylor rce(s) Supporting Document(s ) UNK > 60 Below low normal <content [facility] styleCode="Bold"> Medical Cent er EGFR </content>51 GFR L<content styleCode="Italic s"> (> 60 GFR)</content> ID Date Data Source CHMROUTINECCDA 07/20/2018 04:44:00 AM EDT [facility] Name Value Range Interpretation Description Data Sup porting Code Source(s) Document(s ) Lipase 23-300 Below low normal <content Saint [Enzymatic styleCode="[place] activity/vo ">Lipase Medical lume] in </content>18 Center Serum or IU/L L<content Plasma styleCode="Ital ics"> (23-300 IU/L)</content> UNK NEGATIVE <content Saint styleCode="[place] ">Acetone Medical </content>NEGAT Center DIMA <content styleCode="Ital ics"> (NEGATIVE )</content> UNK >= 1.0 <content Saint styleCode="[place] [place] ">AG Ratio Medical </content>1.1 Center <content styleCode="Ital ics"> (>= 1.0 )</content> UNK 2.3-3.5 <content Saint styleCode="[facility] [place] ">Globulin Medical </content>3.1 Center G/DL<content styleCode="Ital ics"> (2.3-3.5 G/DL)</content> Protein 6.3-8.2 <content Saint [Mass/volum styleCode="[place] [place] e] in Serum ">Total Protein Medical or Plasma </content>6.4 Center G/DL<content styleCode="Ital ics"> (6.3-8.2 G/DL)</content> ID Date Data Source CardiacMarkers 07/20/2018 04:44:00 AM EDT [facility] Name Value Range Interpretation Description Data Sup porting Code Source(s) Document(s ) Troponin < 0.034 <content [facility] I.cardiac styleCode="[facility]old [place] [Mass/volume ">Troponin I Medical ] in Serum </content>0.030 Center or Plasma NG/ML<content styleCode="Ital ics"> (< 0.034 NG/ML)</content > ID Date Data Source BMP 07/20/2018 04:44:00 AM EDT [facility] Name Value Range Interpretation Description Data Sup porting Code Source(s) Document(s ) Sodium 137-145 <content [facility] [Moles/volume] in styleCode="Bold"> Madhu phs Serum or Plasma Sodium Medical </content>139 Center MEQ/L<content styleCode="Italic s"> (137-145 MEQ/L)</content> Potassium 3.5-5.3 Below low <content [facility] [Moles/volume] in normal styleCode="Bold"> Madhu phs Serum or Plasma Potassium Medical </content>3.2 Center MEQ/L L<content styleCode="Italic s"> (3.5-5.3 MEQ/L)</content> Creatinine 0.5-1.3 <content [facility] [Mass/volume] in styleCode="Bold"> [facility] hs Serum or Plasma Creatinine Medical </content>1.1 Center MG/DL<content styleCode="Italic s"> (0.5-1.3 MG/DL)</content> Glucose 74-106 <content [facility] [Mass/volume] in styleCode="Bold"> [facility]uc[facility] hs Serum or Plasma Glucose Medical </content>95 Center MG/DL<content styleCode="Italic s"> (74-106 MG/DL)</content> Carbon dioxide, 22-30 Above high <content [facility] total normal styleCode="Bold"> Juan [Moles/volume] in Carbon Dioxide Medical Serum or Plasma </content>32 Center MEQ/L H<content styleCode="Italic s"> (22-30 MEQ/L)</content> UNK 7-17 Above high <content [facility] normal styleCode="Bold"> Juan BUN </content>21 Medical MG/DL H<content Center styleCode="Italic s"> (7-17 MG/DL)</content> Chloride 98-107 <content [facility] [Moles/volume] in styleCode="Bold"> Madhu phs Serum or Plasma Chloride Medical </content>102 Center MEQ/L<content styleCode="Italic s"> (98-107 MEQ/L)</content> Alanine 7-30 <content [facility] aminotransferase styleCode="Bold"> [facility] [Enzymatic Alanine Medical activity/volume] Aminotransferase Center in Serum or Plasma (ALT) </content>12 IU/L<content styleCode="Italic s"> (7-30 IU/L)</content> Calcium 8.4-10. <content [facility] [Mass/volume] in 2 styleCode="Bold"> [facility] hs Serum or Plasma Calcium Medical </content>9.0 Center MG/DL<content styleCode="Italic s"> (8.4-10.2 MG/DL)</content> Bilirubin.total 0.2-1.3 <content [facility] [Mass/volume] in styleCode="Bold"> Cuco hs Serum or Plasma Bilirubin Total Medical </content>0.3 Center MG/DL<content styleCode="Italic s"> (0.2-1.3 MG/DL)</content> Alkaline 38-126 <content [facility] phosphatase styleCode="Bold"> [facility] [Enzymatic Alkaline Medical activity/volume] Phosphatase (ALP) Cente r in Serum or Plasma </content>72 IU/L<content styleCode="Italic s"> (38-126 IU/L)</content> UNK > 60 Below low <content [facility] normal styleCode="Bold"> Juan EGFR </content>51 Medical GFR L<content Center styleCode="Italic s"> (> 60 GFR)</content> Aspartate 14-36 <content [facility] aminotransferase styleCode="Bold"> [facility] [Enzymatic Aspartate Medical activity/volume] Aminotransferase Center in Serum or Plasma (AST) </content>23 IU/L<content styleCode="Italic s"> (14-36 IU/L)</content> Albumin 3.5-5.0 Below low <content [facility] [Mass/volume] in normal styleCode="Bold"> [facility] hs Serum or Plasma Albumin Medical </content>3.3 Center G/DL L<content styleCode="Italic s"> (3.5-5.0 G/DL)</content> Procedure Social History Code Duration Value Status Description Data Source(s ) Smoking 07/20/2018 Denies Ever completed Denies Ever Smoked [facility] 04:55:00 AM EDT Smoked Medical C enter Smoking 07/20/2018 Denies Ever completed Denies Ever Smoked [place] 04:09:00 AM EDT Smoked Medical C enter Vital Signs ID Date Data Source UNK Name Value Range Interpretation Code Description Data Source(s) Body temperature 36.393082 36.634725 [facility] Respiratory rate 16 /min 16 /min [facility] Oxygen saturation 95 % 95 % [facility] Nathaniel fuller in Arterial blood [facility] by Pulse oximetry Heart rate 60 /min 60 /min [facility] Diastolic blood 68 mm[Hg] 68 mm[Hg] [facility] pressure [facility] Center Systolic blood 166 mm[Hg] 166 mm[Hg] [facility] pressure [facility]
[2019-12-18] MEDS ORDERED: NITROGLYCERIN SUBLINGUAL 1/150 0.4 MG TAB SL ONE ×2 (22:33→23:42)
[2019-12-18] MEDS ORDERED: NITROGLYCERIN SUBLINGUAL 1/150 0.4 MG TAB ONE (22:38)
--- NOTE | 2019-12-18 22:42 | PDOC ---
History of Present Illness <Velma Castle - Last Filed: 12/19/19 00:47> - History of Present Illness Initial Comments: 12/18/19 22:43 79 year old woman with a PMHx of HTN, DM, hyperlipidemia, diastolic CHF, moderate to large pericardial effusion without cardiac tamponade on echo 11/23/2019, Parkinson's disease, dementia, CVA, recent admission to [facility] for UTI/CHF (discharged on 12/12/19) presented to ED for hypoxia and legs pain. As per patients daughter, after discharged from the hospital. Patient medication has change which caused her to have persistent high blood pressure. Rate control was given in a big dose. Furosemide decreased in dose. Patient blood pressure usually run in 150/90s, now it's been persistently high 200s/100s. Patient has been feeling weakened, lightheadness. She denied nausea, vomiting, fever, chills, dysuria, discharge, chest pain. But admitted to too weak to walk. She has been sitting in a wheelchair since medication adjustment and high blood pressure. Initially, I had her admitted to have abdominal pain, but later on, she changed the story. Cardiac note: ECG 12/04/19: Sinus rhythm. LAD. Minor non-specific ST-T changes. Echo 12/04/19: Limited study. Small pericardial effusion (<1cm) without cardiac tamponade. When compared with previous echo on 11/24/19, pericardial effusion is reduced. Echo 11/24/19: LVEF 50-55%. Normal RV. Mild LA dilatation. FCAV without . MAC. Minimal MR. Mild TR. Moderate to large pericardial effusion without cardiac tamponade. PMHX: as in HPI PSHX: see above Meds: Allergies: carbidopa, levodopa Tob: neg Etoh: neg Rec drugs:neg PCP: amy Mitten Stitcher: daughter. ROS GENERAL/CONSTITUTIONAL: No fever or chills. +weakness. HEAD, EYES, EARS, NOSE AND THROAT: No change in vision. No ear pain or discharge. No sore throat. CARDIOVASCULAR: No chest pain or shortness of breath RESPIRATORY: No cough, wheezing, or hemoptysis. GASTROINTESTINAL: No nausea, vomiting, diarrhea or constipation. GENITOURINARY: No dysuria, frequency, or change in urination. MUSCULOSKELETAL: No joint or muscle swelling or pain. No neck or back pain. SKIN: No rash NEUROLOGIC: No headache, vertigo, loss of consciousness, or change in streng th/sensation. ENDOCRINE: No increased thirst. No abnormal weight change HEMATOLOGIC/LYMPHATIC: No anemia, easy bleeding, or history of blood clots. ALLERGIC/IMMUNOLOGIC: No hives or skin allergy. PE GENERAL: Awake, alert, and not oriented, in no acute distress, looking up into the ceiling, speaking lao accompanied by daughter. Thin HEAD: No signs of trauma, normocephalic, atraumatic EYES: PERRLA, EOMI, sclera anicteric, conjunctiva clear ENT: Auricles normal inspection, hearing grossly normal, nares patent, oropharynx clear without exudates. Moist mucosa NECK: Normal ROM, supple, no lymphadenopathy, JVD, or masses LUNGS: No distress, speaks full sentences, clear to auscultation bilaterally HEART: Regular rate and rhythm, normal S1 and S2, no murmurs, rubs or gallops, peripheral pulses normal and equal bilaterally. ABDOMEN: Soft, nontender, normoactive bowel sounds. No guarding, no rebound. No masses EXTREMITIES : Normal inspection, Normal range of motion, 2+ pitting edema. Legs mild tenderness. No clubbing or cyanosis. NEUROLOGICAL: Cranial nerves II through XII grossly intact. Normal speech, no focal sensorimotor deficits SKIN: Warm, Dry, normal turgor, no rashes or lesions noted 12/19/19 00:12 12/19/19 00:25 <Shubham Dunham - Last Filed: 01/09/20 11:32> - General Chief Complaint: Blood Pressure Problem Stated Complaint: HIGH BLOOD PRESSURE Time Seen by Provider: 12/18/19 22:39 Past History <Velma Castle - Last Filed: 12/19/19 00:47> - Medical History Anemia: Yes Asthma: No Cancer: No Cardiac Disorders: Yes CVA: No COPD: No CHF: Yes DVT: No Dementia: Yes Diabetes: Yes GI Disorders: Yes (DIVERTICULOSIS, IBM, GERD, failure to thrive, gastroparesis) Disorders: Yes (UTERINE POLYPS,URINARY INCONTINENCE, JASPER, CKD) HTN: Yes Hypercholesterolemia: Yes Liver Disease: No Psychiatric Problems: Yes (Dementia) Seizures: No Thyroid Disease: Yes - Surgical History Abdominal Surgery: Yes (abdominoplasty 15 yrs ago (tissue became necrotic), scar to lower abdomen) Appendectomy: Yes Cardiac Surgery: No Cholecystectomy: Yes Lung Surgery: No Neurologic Surgery: No Orthopedic Surgery: No - Immunization History Immunization Up to Date: Yes - Psycho-Social/Smoking History Smoking Status: No Smoking History: Never smoked Have you smoked in the past 12 months: No Number of Cigarettes Smoked Daily: 0 Information on smoking cessation initiated: No - Substance Abuse Hx (Audit-C & DAST Scrn) How often the patient has a drink containing alcohol: Never Score: In Men: 4 or > Positive; In Women: 3 or > Positive: 0 Screen Result (Pos requires Nsg. Audit-10AR): Negative In the last yr the pt used illegal drug/Rx for NonMed reason: No Score: Yes response is considered Positive: 0 Screen Result (Positive result requires Nsg. DAST-10): Negative <Shubham Dunham - Last Filed: 01/09/20 11:32> - Medical History Allergies/Adverse Reactions: Allergies Allergy/AdvReac Type Severity Reaction Status Date / Time carbidopa [From Sinemet] AdvReac Verified 12/18/19 22:21 levodopa [From Sinemet] AdvReac Verified 12/18/19 22:21 Home Medications: Ambulatory Orders Levothyroxine [Synthroid -] 25 mcg PO DAILY 04/24/19 Aspirin 81 mg PO DAILY 04/25/19 Multivitamins [Multivit ([facility] Formulary)] 1 tab PO DAILY #30 tab 12/02/19 Pantoprazole Sodium [Protonix -] 20 mg PO DAILY #30 tablet.ec 12/02/19 Atorvastatin Ca [Lipitor] 20 mg PO HS tablet 12/12/19 Furosemide [Lasix -] 40 mg PO BID@0600,1400 tablet 12/12/19 Iron Polysaccharides [Niferex-150 -] 150 mg PO DAILY #30 capsule 12/12/19 Polyethylene Glycol 3350 [Miralax 119 gm Btl -] 17 gm PO BID bottle 12/12/19 Sennosides [Senna -] 2 tab PO HS PRN tablet 12/12/19 Donepezil HCl [Aricept -] 10 mg PO DAILY #30 tablet 01/04/20 Labetalol HCl [Normodyne -] 300 mg PO TID #270 tablet 01/04/20 Losartan Potassium [Cozaar -] 100 mg PO DAILY #60 tablet 01/04/20 Mag Hydrox/Al Hydrox/Simeth [Mylanta Oral Suspension -] 30 ml PO Q6H PRN cup 01/04/20 Memantine HCl [Namenda -] 10 mg PO BID #60 tablet 01/04/20 Mirtazapine [Remeron -] 15 mg PO HS #30 tablet 01/04/20 Nifedipine ER [Procardia XL -] 90 mg PO DAILY #30 tab.er.24 01/04/20 Quetiapine Fumarate [Seroquel -] 25 mg PO HS #30 tablet 01/04/20 Sennosides/Docusate Sodium [Pericolace -] 2 tablet PO HS tablet 01/04/20 hydrALAZINE HCL [Apresoline -] 75 mg PO TID #270 tablet 01/04/20 Clonidine Patch [Catapres Tts Patch -] 0.2 mg TD Q7D@1000 #4 patch.tdwk 01/08/20 *Physical Exam - Vital Signs Last Vital Signs Temp Pulse Resp BP Pulse Ox 98.1 F 76 18 205/72 H 98 12/18/19 22:18 12/18/19 22:18 12/18/19 22:18 12/18/19 22:18 12/18/19 22:18 <Velma Castle - Last Filed: 12/19/19 00:47> - Vital Signs Last Vital Signs Temp Pulse Resp BP Pulse Ox 98.1 F 76 18 205/72 H 98 12/18/19 22:18 12/18/19 22:18 12/18/19 22:18 12/18/19 22:18 12/18/19 22:18 <Shubham Dunham - Last Filed: 01/09/20 11:32> ED Treatment Course - LABORATORY CBC & Chemistry Diagram: 12/18/19 23:14 - RADIOLOGY Radiology Studies Ordered: Category Date Time Status CHEST X-RAY PORTABLE* [RAD] Stat Radiology 12/19/19 00:01 Taken - Medications Given in the ED: ED Medications Discontinued Medications Generic Name Dose Route Start Last Admin Trade Name Freq PRN Reason Stop Dose Admin Furosemide 80 mg 12/18/19 23:41 12/19/19 00:40 Lasix Injection - IVPUSH 12/18/19 23:42 80 mg ONCE ONE Administration Nitroglycerin 0.4 mg 12/18/19 22:33 12/18/19 22:51 Nitrostat - SL 12/18/19 22:34 0.4 mg ONCE ONE Administration Nitroglycerin 0.4 mg 12/18/19 23:42 12/19/19 00:05 Nitrostat - SL 12/18/19 23:43 0.4 mg ONCE ONE Administration Nitroglycerin 1 inch 12/18/19 23:42 12/19/19 00:05 Nitro-Bid 2% Paste - TD 12/18/19 23:43 1 inch ONCE ONE Administration <Velma Castle - Last Filed: 12/19/19 00:47> - LABORATORY CBC & Chemistry Diagram: 01/07/20 05:52 01/07/20 05:52 <Shubham Dunham - Last Filed: 01/09/20 11:32> Medical Decision Making - Medical Decision Making 79 year old female with PMH diastolic CHF (Lasix 40 mg BID), DM, HLD, HTN (recently increased Nifedipine, increased Labetalol from 200 BID to 400 TID), pericardial effusion without tamponade, CVA brought to ED with daughter for progressive SOB/GIVENS, and bilateral lower extremity swelling. Initial Vital Signs Temp Pulse Resp BP Pulse Ox 98.1 F 76 18 205/72 H 98 12/18/19 22:18 12/18/19 22:18 12/18/19 22:18 12/18/19 22:18 12/18/19 22:18 Medications given Furosemide Injection [Lasix Injection -] 80 mg .ROUTE .STK-MED ONE Nitroglycerin 2% Paste [Nitro-Bid 2% Paste -] 1 inch TD ONCE ONE Nitroglycerin Sublingual [Nitrostat -] 0.4 mg SL ONCE ONE Nitroglycerin Sublingual [Nitrostat -] 0.4 mg SL ONCE ONE 227/81 @ 0048 Cannot further beta block or calcium channel block 2/2 acute CHF exacerbation. Will start Nitro Drip Pt to be admitted to ICU if still on Nitro drip, or tele if not. Velma Castle D.O. PGY3 EM Resident <Velma Castle - Last Filed: 12/19/19 00:47> - Medical Decision Making 12/19/19 00:14 79 year old woman with a PMHx of HTN, DM, hyperlipidemia, diastolic CHF, moderate to large pericardial effusion without cardiac tamponade on echo 11/23/2019, Parkinson's disease, dementia, CVA, recent admission to [facility] for UTI/CHF (discharged on 12/12/19) presented to ED for hypoxia and legs pain. CBC, CMP, UA/UC, Coag Chest Xray, EKG showed normal sinus rhthym, vent rate 76, QTc 470, left axis deviation, no STEMI Med: Sublingual nitrate was given---> BP reduced to 180/90s. Ordered Furosemide and another dose of Nitrate. Sign out was given to Dr. Carlos. 12/19/19 00:21 12/19/19 00:27 <Shubham Dunham - Last Filed: 01/09/20 11:32> Discharge <Velma Castle - Last Filed: 12/19/19 00:47> - Discharge Information Problems reviewed: Yes <Shubham Dunham - Last Filed: 01/09/20 11:32> - Discharge Information Clinical Impression/Diagnosis: HTN (hypertension) CHF (congestive heart failure) Qualifiers: Heart failure type: unspecified Heart failure chronicity: acute on chronic Qualified Code(s): I50.9 - Heart failure, unspecified Condition: Fair Disposition: HOME
[2019-12-18] MEDS ORDERED: FUROSEMIDE 40 MG/4 ML INJECTABLE VIAL IVPUSH ONE (23:41)
[2019-12-18] MEDS ORDERED: NITROGLYCERIN 2% OINTMENT - 1GM PACKET TD ONE ×2 (23:42→23:57)
--- NOTE | 2019-12-18 23:52 | PDOC ---
Attending Attestation - Resident Resident Name: Shubham Dunham - ED Attending Attestation I have performed the following: I have examined & evaluated the patient, The case was reviewed & discussed with the resident, I agree w/resident's findings & plan, Exceptions are as noted - HPI HPI: 12/18/19 23:46 79 yo F with h/o CHF htn hld DM ckd hypothyroid here wiith c/o elevated BP. pt was recently admitted twice earlier this month, once with uti, and second time with CHF htn urgency. on admission, per pt daughter, her meds were changed, labetalol increased from 200 to 400 tid, losartan 25 added, and continued hydralazine 50 tid, lasix 40 bi d , increased nifedipine from 60 to 120 ER. here today with sob, leg swelling and generalized weakness. no fever , no chills. no other complaints. states overall just doesn't feel well. sob worse with exertion and lying flat. - Physicial Exam PE: 12/18/19 23:49 awake alert lungs faint crackles at lungs bases. heart rrr no mrg abd soft nt nd ext 3+ pitting edema bilat. nuero alert oriented x 3. bilat upper strength symmetric 5/5. lower ext symmetric 3/5. 2+ dp/ pt pulses bilat. - Medical Decision Making 12/18/19 23:55 79 yo F h/o chf dm htn hld, ckd here with sob , elevated bp and leg edema. differential htn emergency, htn urgency, likley chf exacerbation ID, plan cxr labs ekg trop bp control. ntg x 2 SL given, nitropaste 1 ", lasix 80 mg ivp. w 12/19/19 00:03 pt daughter tessa maldonado cell [phone] Heart Score/ECG Review #1 General ECG Interpretation: Sinus Rhythm, Normal Rate (76), Normal Intervals, No acute ischemic changes Compared to previous ECG there are: Other (left axis, no st elevation or depression.) Discharge - Discharge Information Problems reviewed: Yes Clinical Impression/Diagnosis: HTN (hypertension) CHF (congestive heart failure) Qualifiers: Heart failure type: unspecified Heart failure chronicity: acute on chronic Qualified Code(s): I50.9 - Heart failure, unspecified Condition: Fair - Follow up/Referral - Patient Discharge Instructions - Post Discharge Activity
[2019-12-19] MEDS ORDERED: FUROSEMIDE 40 MG/4 ML INJECTABLE VIAL ONE (00:32)
[2019-12-19] MEDS ORDERED: NITROGLYCERIN 25MG/D5W 250ML 25 MG/250 ML ML IVPB SCH (00:45)
[2019-12-19 00:51] LABS: BASO % 1.4 % (0-2.0); EOS % 5.2 % (0-4.5); HEMATOCRIT 29.8 % (32.4-45.2); HEMOGLOBIN 9.5 GM/dL (10.7-15.3); LYMPH % 8.2 % (8-40); MCH 26.7 pg (25.7-33.7); MCHC 31.9 g/dl (32.0-36.0); MEAN CELL VOLUME 83.8 fl (80-96); MONO % 7.3 % (3.8-10.2); NEUT % 77.9 % (42.8-82.8); PLATELET COUNT 352 K/MM3 (134-434); RBC 3.56 M/mm3 (3.60-5.2); RDW 18.5 % (11.6-15.6); WHITE BLOOD COUNT 7.3 K/mm3 (4.0-10.0)
[2019-12-19 01:07] LABS: ALBUMIN 3.2 g/dl (3.4-5.0); BILIRUBIN,TOTAL 0.5 mg/dL (0.2-1); BLOOD UREA NITROGEN 21.7 mg/dL (7-18); CALCIUM 8.7 mg/dL (8.5-10.1); CREATININE 1.5 mg/dL (0.55-1.3); POTASSIUM 5.5 mmol/L (3.5-5.1); TOT PROT 6.8 g/dl (6.4-8.2)
[2019-12-19 01:08] LABS: N-TERMINAL BNP 80772.5 pg/ml (5-450)
[2019-12-19] MEDS ORDERED: NITROPRUSSIDE SODIUM 25 MG/1 ML ML IVPB ONE (01:09)
[2019-12-19] MEDS ORDERED: NITROGLYCERIN 25MG/D5W 250ML 25 MG/250 ML ML IVPB ONE (01:11)
[2019-12-19] MEDS ORDERED: morphine CARPU-JECT 4 MG/1 ML DISP.SYRIN IVPUSH ONE (01:51)
--- NOTE | 2019-12-19 01:51 | HP ---
CHIEF COMPLAINT: SOB and Leg Swelling and HTN Emergency PCP: Zulma HISTORY OF PRESENT ILLNESS: 79 YO female with PMH of HTN, HLD, DM, CHF, CKD, Hypothyroidism, CVA, Dementia, Parkinson, Diverticulosis. Patient BIBEMS to the ED for chief complain of SOB and Leg swelling. Pt is a poor historian and hx is obtained by ED resident/doc who received hx from daughter. Pt also endorses abdominal pain. She was recenltly admitted for CHF/UTI between 12/02 - 12/11. Pt says her meds were changed upon discharge in which Labetolol 300 TID, Losartan 25, Hydralazine 50 TID, Lasix 40 BID, Nifedipine ER 120. Pt denies fever, chills, nvd. PAST MEDICAL HISTORY: HTN, HLD, DM, CHF, CKD, Hypothyroidism, CVA, Dementia, Parkinsons, Diveticulosis. PAST SURGICAL HISTORY: Appendectomy, Cholecystectomy, Social History: Smoking: denies Alcohol: denies Drugs: denies Allergies carbidopa [From Sinemet] Adverse Reaction (Verified 12/18/19 22:21) levodopa [From Sinemet] Adverse Reaction (Verified 12/18/19 22:21) HOME MEDICATIONS: Home Medications Medication Instructions Recorded Levothyroxine [Synthroid -] 25 mcg PO DAILY 04/24/19 Aspirin 81 mg PO DAILY 04/25/19 Atorvastatin Ca [Lipitor] 20 mg PO HS 04/25/19 Labetalol HCl [Normodyne -] 400 mg PO TID 04/25/19 Lipase/Protease/Amylase [Creon Dr 1 each PO TID 04/25/19 36,000 Units Capsule] Potassium Chloride 20 meq PO DAILY 04/25/19 Memantine HCl/Donepezil HCl 1 cap PO DAILY 11/23/19 [Namzaric 14 mg-10 mg Capsule] Acetaminophen [Tylenol .Regular 650 mg PO Q4H PRN tablet 12/02/19 Strength -] Albuterol Sulfate Inhaler - 2 puff IH Q6H PRN inhaler 12/02/19 [Ventolin HFA Inhaler -] Dicyclomine HCl [Bentyl -] 10 mg PO Q6H PRN capsule 12/02/19 Dronabinol [Marinol -] 2.5 mg PO DAILY capsule 12/02/19 Iron Polysaccharides [Niferex-150 150 mg PO DAILY #30 capsule 12/02/19 -] Multivitamins [Multivit ([facility] 1 tab PO DAILY #30 tab 12/02/19 Formulary)] Pantoprazole Sodium [Protonix -] 20 mg PO DAILY #30 tablet.ec 12/02/19 Polyethylene Glycol 3350 [Miralax 17 gm PO BID bottle 12/02/19 119 gm Btl -] Sennosides [Senna -] 2 tab PO HS #60 tablet 12/02/19 hydrALAZINE HCL [Apresoline -] 50 mg PO TID tablet 12/02/19 Nifedipine ER [Procardia XL -] 60 mg PO BID 12/04/19 Atorvastatin Ca [Lipitor] 20 mg PO HS tablet 12/12/19 Furosemide [Lasix -] 40 mg PO BID@0600,1400 tablet 12/12/19 Iron Polysaccharides [Niferex-150 150 mg PO DAILY #30 capsule 12/12/19 -] Levothyroxine [Synthroid -] 25 mcg PO DAILY@0700 tablet 12/12/19 Losartan Potassium [Cozaar -] 25 mg PO DAILY #30 tablet 12/12/19 Mirtazapine 30 mg PO HS #30 tablet 12/12/19 Nifedipine ER [Procardia XL -] 120 mg PO DAILY tab.er.24 12/12/19 Polyethylene Glycol 3350 [Miralax 17 gm PO BID bottle 12/12/19 119 gm Btl -] Potassium Chloride [K-Dur -] 40 meq PO DAILY tablet.er 12/12/19 Sennosides [Senna -] 2 tab PO HS PRN tablet 12/12/19 REVIEW OF SYSTEMS CONSTITUTIONAL: Absent: fever, chills, diaphoresis, generalized weakness, malaise, loss of appetite, weight change HEENT: Absent: rhinorrhea, nasal congestion, throat pain, throat swelling, difficulty swallowing, mouth swelling, ear pain, eye pain, visual changes CARDIOVASCULAR: shortness of breath, bilateral leg swelling Absent: chest pain, syncope, palpitations, irregular heart rate, lightheadedness, RESPIRATORY: Absent: cough, shortness of breath, dyspnea with exertion, orthopnea, wheezing, stridor, hemoptysis GASTROINTESTINAL: Absent: abdominal distension, nausea, vomiting, diarrhea, constipation, melena, hematochezia GENITOURINARY: Absent: dysuria, frequency, urgency, hesitancy, hematuria, flank pain, genital pain MUSCULOSKELETAL: Absent: myalgia, arthralgia, joint swelling, back pain, neck pain SKIN: Absent: rash, itching, pallor HEMATOLOGIC/IMMUNOLOGIC: Absent: easy bleeding, easy bruising, lymphadenopathy, frequent infections ENDOCRINE: Absent: unexplained weight gain, unexplained weight loss, heat intolerance, cold intolerance NEUROLOGIC: Absent: headache, focal weakness or paresthesias, dizziness, unsteady gait, seizure, mental status changes, bladder or bowel incontinence PSYCHIATRIC: Absent: anxiety, depression, suicidal or homicidal ideation, hallucinations. PHYSICAL EXAMINATION Vital Signs - 24 hr 12/18/19 22:18 Temperature 98.1 F Pulse Rate 76 Respiratory 18 Rate Blood Pressure 205/72 H O2 Sat by Pulse 98 Oximetry (%) GENERAL: Awake, alert, and not oriented, in no acute distress, looking up into the ceiling, speaking nauruan accompanied by daughter. Thin HEAD: No signs of trauma, normocephalic, atraumatic EYES: PERRLA, EOMI, sclera anicteric, conjunctiva clear ENT: Auricles normal inspection, hearing grossly normal, nares patent, oropharynx clear without exudates. Moist mucosa NECK: Normal ROM, supple, no lymphadenopathy, JVD, or masses LUNGS: No distress, speaks full sentences, fine crackles bilaterally at bases HEART: Regular rate and rhythm, normal S1 and S2, no murmurs, rubs or gallops, peripheral pulses normal and equal bilaterally. ABDOMEN: Soft, nontender, normoactive bowel sounds. No guarding, no rebound. No masses EXTREMITIES : Normal inspection, Normal range of motion, 3+ pitting edema. Legs mild tenderness. No clubbing or cyanosis. NEUROLOGICAL: Cranial nerves II through XII grossly intact. Normal speech, no focal sensorimotor deficits SKIN: Warm, Dry, normal turgor, no rashes or lesions noted Laboratory Results - last 24 hr 12/18/19 12/19/19 23:14 00:27 WBC 7.3 RBC 3.56 L Hgb 9.5 L Hct 29.8 L MCV 83.8 MCH 26.7 MCHC 31.9 L RDW 18.5 H Plt Count 352 MPV 7.0 L Absolute Neuts (auto) 5.7 Neutrophils % 77.9 Lymphocytes % 8.2 D Monocytes % 7.3 Eosinophils % 5.2 H Basophils % 1.4 Nucleated RBC % 0 Sodium 142 Potassium 5.5 H Chloride 113 H Carbon Dioxide 23 Anion Gap 5 L BUN 21.7 H Creatinine 1.5 H Est GFR (CKD-EPI)AfAm 38.55 Est GFR (CKD-EPI)NonAf 33.26 Random Glucose 150 H Calcium 8.7 Total Bilirubin 0.5 AST 29 ALT 16 Alkaline Phosphatase 134 H Troponin I 0.04 B-Natriuretic Peptide 08141.5 H Total Protein 6.8 Albumin 3.2 L Lipase 14 L Labs: Hb 9.5, K 5.5 (hemolyzed), Creat 1.5, BNP 80k Images: ASSESSMENT/PLAN: 79 YO female with PMH of HTN, HLD, CAD, previous [place], previous CVA, Dementia presents with exertional dyspnea and hypertension. Neuro: - PMH dementia - Trazadone (50, HS) - Mirtazapine (30, HS) - Holding Memantine/Donepezil Cardiovascular - CHF Exacerbation - b/l lung cracking, b/l LE swelling - BNP 80k - Hyperkalemia 5.5, hemolyzed - Nitro Drip (10 in ED, 30 in ICU, downtrated to 0) - Furosemide (80, IV) x2 - HTN Emergency () - Hx of htn, dyspnea on exertion. 2+ urine protein. No LINK, CP, SOB. - Differential: Isolated Systolic HTN (SBP >140) (DBP <80) vs DOMITILA - Renal Doppler - Nifedipine (90 ER) - holding labetolol and hydralazine - HLD - Aspirin 81 - Atorvastatin 20 HS Pulm - b/l lung crackles at bases. - CXR: widened mediastinum, bilateral congestion, bilateral basilar infiltrates/atelectasis GI - Pantoprazole (20mg) - Creon (36k, TIDAC) - Sennoside (2 tab, HS) - Mylanta (30mL, q6) - Na restrictive Diet - Creatinine 1.5, consistent with baseline - Monitor Is and Os - Monitor electrolytes - Furosemide (80, IV) - Hyperkalemic (hold KCl) Endo - hypothyroidism- maintain home meds levo .025 mg - Synthroid (25mcg) PPx -DVT- on heparin 5000 TID Dispo - Pt requires ICU care Family Medical History Family History: As Documented Visit type - Medication Review Med list reviewed for High Risk Meds patients 65 and older: Yes - Emergency Visit Emergency Visit: Yes ED Registration Date: 12/19/19 Care time: The patient presented to the Emergency Department on the above date and was hospitalized for further evaluation of their emergent condition. - New Patient This patient is new to me today: Yes Date on this admission: 12/19/19 - Critical Care Critical Care patient: No ATTENDING PHYSICIAN STATEMENT I saw and evaluated the patient. I reviewed the resident's note and discussed the case with the resident. I agree with the resident's findings and plan as documented. SUBJECTIVE: OBJECTIVE: ASSESSMENT AND PLAN:
[2019-12-19 02:18] LABS: EPI CELLS >36 /uL (0-25.1); HYALINE CASTS 13 /uL (0-3.1); URINE APPEARANCE CLEAR; URINE BACTERIA 59 /uL (0-1359); URINE BILIRUBIN NEGATIVE (NEGATIVE); URINE COLOR YELLOW; URINE GLUCOSE (UA) NEGATIVE (NEGATIVE); URINE KETONE NEGATIVE (NEGATIVE); URINE LEUK ESTERASE 2+ (NEGATIVE); URINE NITRITE NEGATIVE (NEGATIVE); URINE PROTEIN 2+ (NEGATIVE); URINE UROBILINOGEN 0.2 mg/dL (0.2-1.0); URINE WBC 259 /uL (0-25.8)
[2019-12-19] MEDS ORDERED: MORPHINE SULFATE 2 MG/ML VIAL ONE (02:28)
--- OUTSIDE RECORDS SUMMARY | 2019-12-19 02:35 | XMS ---
:1940 Author Organization [facility] Care Team Providers Name Role [...] is protected by Article 27-F of the [facility] Public Health law. If you continue you may haveaccess to information: Regarding HIV / AIDS; Provided by facilities licensed or operated by the [facility] Office of Mental Health; or Provided by the [place] State Office for People With Developmental Disabilities. If such information is present, then the following [facility] mandated warning applies: This information has [...] law may result in a fine or assisted sentence or both. A general authorization for the release of medical or other information is NOT sufficient authorization for further disclosure. Encounters Encounter Providers Location Date Indications Data Source(s ) Outpatient Attender: HJCARR ALL 05/15/2019 [facility] 11:37:02 AM ([facility]) Emergency H 07/20/2018 [place] 04:04:00 AM [facility]T Outpatient 06/10/2018 [facility] ([place] [facility] 08:11:00 AM [facility]) Outpatient ALL 01/14/2018 [facility]05[facility] Outpatient ALL 12/31/2017 [facility] 08:03[facility] Outpatient ALL 10/15/2017 [facility] 08[facility]06:[facility] Insurance Providers Payer name Policy type Policy ID Covered Covered constitution party's Policy P matt / Coverage constitution party ID relationship to [place] Inf ormation type [place] MEDICAID [id number] SP [id number] MEDICARE [id number] SP [id number] W [id number] 01 [id number] 01 [id number] MEDICAID W [id number] MEDICAID [id number] Problems, Conditions, and Diagnoses Code Display Name [...] WITHOUT COMA Results ID Date Data Source [id number] 12/04/2019 12:04:00 AM EDT [facility] Name Value Range Interpretation Description Data Sup porting Code Source(s) Document(s ) SARS [facility] coronavirus 2 RNA This lab was ordered by [facility] and reported by [facility]. ID Date Data Source [id number] 11/23/2019 10:20:00 PM EDT [facility] Name Value Range Interpretation Description Data Sup porting Code Source(s) Document(s ) SARS [facility] coronavirus 2 RNA This lab was ordered by [facility] and reported by [facility]. ID Date Data Source Liver Profile 07/20/2018 04:44:00 AM EDT [facility] Name Value Range Interpretation Description Data Sup [...] MG/DL)</content> Alkaline 38-126 <content [facility] phosphatase styleCode="Bold"> [facility] [Enzymatic Alkaline Medical activity/volume] Phosphatase (ALP) [...] Data Source HematologyRou 07/20/2018 04:44:00 AM EDT [facility] Name Value Range Interpretation Description Data Sup [...] (11.5-14.5 %)</content> UNK 0 <content [facility] styleCode="Bold [place] ">Nucleated Red [facility] Blood Cell [facility] </content>0.0 /100<content styleCode="Ital ics"> (0 /100)</content> ID Date Data Source GFR(Creatinine) 07/20/2018 04:44:00 AM EDT [facility] Name Value Range Interpretation Code Description Data Taylor rce(s) Supporting Document(s ) UNK > 60 Below low normal <content [facility] [place] styleCode="Bold"> Medical Cent er EGFR </content>51 GFR L<content styleCode="Italic s"> (> 60 GFR)</content> ID Date Data Source CHMROUTINECCDA 07/20/2018 04:44:00 AM EDT [facility] Name Value Range Interpretation Description Data Sup [...] Data Source CardiacMarkers 07/20/2018 04:44:00 AM EDT [facility] Name Value Range Interpretation Description Data Sup porting Code Source(s) Document(s ) Troponin < 0.034 <content [facility] I.cardiac styleCode="Bold [place] [Mass/volume ">Troponin I Medical ] in Serum </content>0.030 Center or Plasma NG/ML<content styleCode="Ital ics"> (< 0.034 NG/ML)</content > ID Date Data Source BMP 07/20/2018 04:44:00 AM EDT [facility] Name Value Range Interpretation Description Data Sup [...] 7-17 Above high <content [facility] normal styleCode="Bold"> Juna BUN </content>21 Medical MG/DL H<content Center styleCode="Italic [...] 07/20/2018 Denies Ever completed Denies Ever Smoked [facility] 04:55:00 AM EDT Smoked Medical C enter Smoking 07/20/2018 Denies Ever completed Denies Ever Smoked [place] 04:09:00 AM EDT Smoked Medical C enter Vital Signs ID Date Data Source UNK Name Value Range Interpretation Code Description Data Source(s) Body temperature 36.493636 36.312233 [facility] Respiratory rate 16 /min 16 /min [facility] Oxygen saturation 95 % 95 % [facility] Nathaniel fuller in Arterial blood [facility] by Pulse oximetry Heart rate 60 /min 60 /min [facility] Diastolic blood 68 mm[Hg] 68 mm[Hg] [facility] pressure [facility] Systolic blood 166 mm[Hg] 166 mm[Hg] [facility] pressure [facility]
[2019-12-19] MEDS ORDERED: LABETALOL HCL 100 MG TABLET (FP) PO ONE (03:18)
[2019-12-19] MEDS ORDERED: MAG HYDROX/AL HYDROX/SIMETH 30 ML UNIT-DOSE CUP PO PRN ×2 (03:24→14:40)
[2019-12-19 03:58] LABS: URINE RBC 46.8 /uL (0-23.9); YEAST MODERATE (NEGATIVE)
[2019-12-19] MEDS ORDERED: NIFEdipine E.R. 90 MG TABLET PO SCH ×3 (05:45→10:00)
[2019-12-19] MEDS: HEPARIN NA (PORCINE) 5,000 UNITS/ML 1ML VIAL SQ SCH ×3 (05:50→21:10)
[2019-12-19] MEDS ORDERED: LABETALOL HCL 200 MG TABLET (FP) PO SCH ×2 (06:00→22:00)
[2019-12-19 06:47] LABS: HEMATOCRIT 27.8 % (32.4-45.2); MCHC 32.4 g/dl (32.0-36.0); MEAN CELL VOLUME 83.4 fl (80-96); MEAN PLT VOLUME 7.3 fl (7.5-11.1); PLATELET COUNT 329 K/MM3 (134-434); RBC 3.33 M/mm3 (3.60-5.2); RDW 18.2 % (11.6-15.6); WHITE BLOOD COUNT 7.7 K/mm3 (4.0-10.0)
[2019-12-19] MEDS ORDERED: LEVOTHYROXINE NA 25 MCG TABLET (FP) PO SCH (07:00)
[2019-12-19] MEDS ORDERED: METOCLOPRAMIDE HCL 10 MG TABLET (FP) PO SCH (07:00)
[2019-12-19 07:28] LABS: ANION GAP 4 MMOL/L (8-16); BLOOD UREA NITROGEN 21.2 mg/dL (7-18); CALCIUM 8.6 mg/dL (8.5-10.1); CHLORIDE 114 mmol/L (98-107); CO2 27 mmol/L (21-32); CREATININE 1.4 mg/dL (0.55-1.3); GLUCOSE,RANDOM 96 mg/dL (74-106); MAGNESIUM 1.9 mg/dL (1.8-2.4); PHOSPHOROUS 2.1 mg/dL (2.5-4.9); POTASSIUM 4.4 mmol/L (3.5-5.1); SODIUM 145 mmol/L (136-145)
[2019-12-19 07:34] LABS: N-TERMINAL BNP > 35000.0 pg/ml (5-450)
[2019-12-19] MEDS ORDERED: PT OWN MED DRAWER 7, Y5N ONE (07:43)
[2019-12-19] MEDS: LIPASE/PROTEASE/AMYLASE 36,000 UNIT CAPSULE PO SCH ×2 (07:51→12:28)
[2019-12-19] MEDS ORDERED: NAPH,MB-DB/K PH,MBDB POWDER PACKET PO ONE (08:00)
[2019-12-19] MEDS ORDERED: FUROSEMIDE 40 MG/4 ML INJECTABLE VIAL IVPUSH ONE (08:00)
[2019-12-19] MEDS ORDERED: PANTOPRAZOLE 20 MG TABLET PO SCH (10:00)
[2019-12-19] MEDS ORDERED: ASPIRIN 81 MG CHEWABLE TABLETS PO SCH (10:00)
[2019-12-19] MEDS ORDERED: POTASSIUM PHOSPHATE 20 MM in DEXTROSE 5%-WATER - 250 ML IVPB ONE (10:00)
[2019-12-19] MEDS ORDERED: MUPIROCIN 2% TOPICAL OINTMENT FOR DECOLONIZATION NS SCH ×2 (10:00→22:00)
--- NOTE | 2019-12-19 10:08 | CON.CARD ---
Consult Consult Specialty:: cardiology Referred by:: joshua austin Reason for Consultation:: sob - History of Present Illness Chief Complaint: sob History of Present Illness: 79 year old female with a pmhx of htn, dm, hld, diastolic chf, h/o mod to large pericardial effusion which was small on echo 12/04/19, parkinson's, dementia, and cva who was recently admitted for uti/chf exacerbation who presents with sob. Family reports blood pressure has been running very high at home and sob, weakness, and lightheaded. No f/c/s. No n/v/d. Very elevated bnp Cr 1.5 K 5.5 CXR: b/l pleural effusions Echo 12/04/19: Limited study. Small pericardial effusion (<1cm) without cardiac tamponade. When compared with previous echo on 11/24/19, pericardial effusion is reduced. Echo 11/24/19: LVEF 50-55%. Normal RV. Mild LA dilatation. FCAV without . MAC. Minimal MR. Mild TR. Moderate to large pericardial effusion without cardiac tamponade. 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: Dementia, Peripheral Neuropathy, Parkinson's Cardio/Vascular: Yes: CHF (diastolic), HTN, Hyperlipdemia Gastrointestinal: Yes: Diverticulosis Psych: Yes: Anxiety Musculoskeletal: Yes: Osteoarthritis Endocrine: Yes: Diabetes Mellitus - Past Surgical History Past Surgical History: Yes: Appendectomy, Cholecystectomy, - Alcohol/Substance Use Hx Alcohol Use: No History of Substance Use: reports: None (unknown) - Smoking History Smoking history: Never smoked Have you smoked in the past 12 months: No Aproximately how many cigarettes per day: 0 - Social History Usual Living Arrangement: Alone 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 (also has MILITARY ANALYST 6 hours x5 days and 5 hours x2 days) History of Recent Travel: No Home Medications - Allergies Allergies/Adverse Reactions: Allergies Allergy/AdvReac Type Severity Reaction Status Date / Time carbidopa [From Sinemet] AdvReac Verified 12/18/19 22:21 levodopa [From Sinemet] AdvReac Verified 12/18/19 22:21 - Home Medications Home Medications: Ambulatory Orders Levothyroxine [Synthroid -] 25 mcg PO DAILY 04/24/19 Aspirin 81 mg PO DAILY 04/25/19 Atorvastatin Ca [Lipitor] 20 mg PO HS 04/25/19 Labetalol HCl [Normodyne -] 400 mg PO TID 04/25/19 Lipase/Protease/Amylase [Elaine Sweeney 36,000 Units Capsule] 1 each PO TID 04/25/19 Potassium Chloride 20 meq PO DAILY 04/25/19 Memantine HCl/Donepezil HCl [Namzaric 14 mg-10 mg Capsule] 1 cap PO DAILY 11/23/19 Acetaminophen [Tylenol .Regular Strength -] 650 mg PO Q4H PRN tablet 12/02/19 Albuterol Sulfate Inhaler - [Ventolin HFA Inhaler -] 2 puff IH Q6H PRN inhaler 12/02/19 Dicyclomine HCl [Bentyl -] 10 mg PO Q6H PRN capsule 12/02/19 Dronabinol [Marinol -] 2.5 mg PO DAILY capsule 12/02/19 Iron Polysaccharides [Niferex-150 -] 150 mg PO DAILY #30 capsule 12/02/19 Multivitamins [Multivit ([facility] Formulary)] 1 tab PO DAILY #30 tab 12/02/19 Pantoprazole Sodium [Protonix -] 20 mg PO DAILY #30 tablet.ec 12/02/19 Polyethylene Glycol 3350 [Miralax 119 gm Btl -] 17 gm PO BID bottle 12/02/19 Sennosides [Senna -] 2 tab PO HS #60 tablet 12/02/19 hydrALAZINE HCL [Apresoline -] 50 mg PO TID tablet 12/02/19 Nifedipine ER [Procardia XL -] 60 mg PO BID 12/04/19 Atorvastatin Ca [Lipitor] 20 mg PO HS tablet 12/12/19 Furosemide [Lasix -] 40 mg PO BID@0600,1400 tablet 12/12/19 Iron Polysaccharides [Niferex-150 -] 150 mg PO DAILY #30 capsule 12/12/19 Levothyroxine [Synthroid -] 25 mcg PO DAILY@0700 tablet 12/12/19 Losartan Potassium [Cozaar -] 25 mg PO DAILY #30 tablet 12/12/19 Mirtazapine 30 mg PO HS #30 tablet 12/12/19 Nifedipine ER [Procardia XL -] 120 mg PO DAILY tab.er.24 12/12/19 Polyethylene Glycol 3350 [Miralax 119 gm Btl -] 17 gm PO BID bottle 12/12/19 Potassium Chloride [K-Dur -] 40 meq PO DAILY tablet.er 12/12/19 Sennosides [Senna -] 2 tab PO HS PRN tablet 12/12/19 Vital Signs: Vital Signs Temperature 99.1 F 12/19/19 06:00 Pulse Rate 62 12/19/19 09:00 Respiratory Rate 16 12/19/19 09:00 Blood Pressure 124/42 L 12/19/19 09:00 O2 Sat by Pulse Oximetry (%) 95 12/19/19 08:16 Constitutional: Yes: No Distress Neck: Yes: Supple Respiratory: Yes: Rales (bibasilar rales) Gastrointestinal: Yes: Soft JVD: Yes Carotid Bruit: No PMI: Non-Displaced Heart Sounds: Yes: S1, S2 Edema: LLE: 2+, RLE: 2+ - Other Data Labs, Other Data: CBC, BMP 12/19/19 05:22 12/19/19 05:22 Troponin, BNP 12/18/19 12/19/19 23:14 05:22 Troponin I 0.04 B-Natriuretic Peptide 94714.5 H > 74475.0 H Troponin, BNP 12/18/19 12/19/19 23:14 05:22 Troponin I 0.04 B-Natriuretic Peptide 94889.5 H > 15307.0 H Imaging - Results Chest X-ray: Report Reviewed Problem List - Problems (1) CHF (congestive heart failure) Code(s): I50.9 - HEART FAILURE, UNSPECIFIED Qualifiers: Heart failure type: unspecified Heart failure chronicity: acute on chronic Qualified Code(s): I50.9 - Heart failure, unspecified Assessment/Plan 79 year old female with a pmhx of htn, dm, hld, diastolic chf, h/o mod to large pericardial effusion which was small on echo 12/04/19, parkinson's, dementia, and cva who was recently admitted for uti/chf exacerbation who presents with sob. Family reports blood pressure has been running very high at home and sob, weakness, and lightheaded. No f/c/s. No n/v/d. Very elevated bnp Cr 1.5 K 5.5 CXR: b/l pleural effusions Echo 12/04/19: Limited study. Small pericardial effusion (<1cm) without cardiac tamponade. When compared with previous echo on 11/24/19, pericardial effusion is reduced. Echo 11/24/19: LVEF 50-55%. Normal RV. Mild LA dilatation. FCAV without . MAC. Minimal MR. Mild TR. Moderate to large pericardial effusion without cardiac tamponade. 1) Acute on chronic diastolic chf exacerbation likely in setting of uncontrolled htn. -Diurese furosemide 40mg IV bid. Monitor I/O's, lytes, bun/cr, and daily weights Will likely send home on torsemide upon discharge. -BP control. Continue nifedipine. Would titrate off nitro drip and onto oral agents. She was on labetalol and hydralazine as an outpatient. Would consider labetalol 200mg tid and if needed hydralazine 50mg. Would than further adjust as needed
--- NOTE | 2019-12-19 10:18 | EKG ---
Test Reason : Blood Pressure : / mmHG Vent. Rate : 076 BPM Atrial Rate : 076 BPM P-R Int : 156 ms QRS Dur : 096 ms QT Int : 418 ms P-R-T Axes : -03 -34 061 degrees QTc Int : 470 ms NORMAL SINUS RHYTHM LEFT AXIS DEVIATION NONSPECIFIC T WAVE ABNORMALITY ABNORMAL ECG WHEN COMPARED WITH ECG OF 10-DEC-2019 16:53, CRITERIA FOR SEPTAL INFARCT ARE NO LONGER PRESENT QT HAS LENGTHENED Confirmed by MD Marlon, Kolton ([id number]) on 12/19/2019 10:18:01 AM Referred By: Confirmed By:Kolton Mason MD
--- NOTE | 2019-12-19 10:51 | PN ---
Teaching Attending Note Name of Resident: Nina Leyva ATTENDING PHYSICIAN STATEMENT I saw and evaluated the patient. I reviewed the resident's note and discussed the case with the resident. I agree with the resident's findings and plan as documented. SUBJECTIVE: Pt seen and examined in the ICU. BP better controlled. Off nitro gtt. Denies shortness of breath or chest pain. OBJECTIVE: Vital Signs Period Temp Pulse Resp BP Sys/East Pulse Ox Last 24 Hr 97.6 F-99.1 F 62-78 14-19 124-227/42-95 95-100 Intake & Output 12/16/19 12/17/19 12/18/19 12/19/19 23:59 23:59 23:59 23:59 Intake Total 640 Output Total 350 Balance 290 Weight 61.235 kg 57.788 kg Gen: NAD at rest Heart: RRR Lung: decreased breath sounds at the bases Abd: soft, nontender Ext: + edema CBC, BMP 12/19/19 05:22 12/19/19 05:22 Active Medications Al Hydroxide/Mg Hydroxide (Mylanta Oral Suspension -) 30 ml PO Q6H PRN PRN Reason: DYSPEPSIA Aspirin (Asa -) 81 mg PO DAILY [facility] Last Admin: 12/19/19 10:16 Dose: 81 mg Documented by: Atorvastatin Calcium (Lipitor -) 20 mg PO HS [facility] Chlorhexidine Gluconate (Hibiclens For Decolonization -) 1 applic TP HS [facility] Furosemide (Lasix Injection -) 40 mg IVPUSH BID@0600,1400 [facility] Heparin Sodium (Porcine) (Heparin -) 5,000 unit SQ TID [facility] Last Admin: 12/19/19 05:50 Dose: 5,000 unit Documented by: Nitroglycerin/Dextrose (Nitroglycerin 25mg/D5w 250ml) 25 mg in 250 mls @ 6 mls/hr IVPB TITR [facility] Last Titration: 12/19/19 09:09 Dose: 0 mcg/min, 0 mls/hr Documented by: Potassium Phosphate 20 mm/ (Dextrose) 256.6667 mls @ 62.5 mls/hr IVPB ONCE ONE Stop: 12/19/19 14:06 Last Admin: 12/19/19 10:16 Dose: 62.5 mls/hr Documented by: Levothyroxine Sodium (Synthroid -) 25 mcg PO DAILY@0700 [facility] Last Admin: 12/19/19 06:23 Dose: 25 mcg Documented by: Mirtazapine (Remeron -) 30 mg PO [facility] Mupirocin (Bactroban Ointment (For Decolonization) -) 1 applic NS BID [facility] Stop: 12/24/19 09:59 Last Admin: 12/19/19 10:23 Dose: Not Given Documented by: Nifedipine (Procardia Xl -) 90 mg PO DAILY [facility] Last Admin: 12/19/19 05:50 Dose: 90 mg Documented by: Pancrelipase (Elaine Dr 36,000 Units Capsule) 1 cap PO TIDCM [facility] Last Admin: 12/19/19 07:51 Dose: Not Given Documented by: Pantoprazole Sodium (Protonix -) 20 mg PO DAILY [facility] Last Admin: 12/19/19 10:16 Dose: 20 mg Documented by: Senna/Docusate Sodium (Pericolace -) 2 tablet PO HS PRN PRN Reason: CONSTIPATION Trazodone HCl (Desyrel -) 50 mg PO [facility] ASSESSMENT AND PLAN: Hypertensive Urgency Acute on Chronic Diastolic Heart Failure Pericardial Effusion HTN DM Hyperlipidemia CKD Hypothyroidism Parkinsons Dementia h/o CVA - titrate oral BP meds - monitor off nitro gtt - lasix - monitor urine output, creatinine - O2 to keep SpO2 >90% - DVT prophylaxis - can monitor on floor
--- NOTE | 2019-12-19 10:58 | HOSP ---
Subjective - Review of Symptoms General: No: Chills, Night Sweats, Fatigue, Malaise, Appetite, Other Pulmonary: Yes: Dyspnea Cardiovascular: Yes: Orthopnea Physical Examination Vital Signs: Vital Signs Temperature 98.0 F 12/19/19 09:00 Pulse Rate 64 12/19/19 10:00 Respiratory Rate 14 12/19/19 10:00 Blood Pressure 141/47 L 12/19/19 10:00 O2 Sat by Pulse Oximetry (%) 95 12/19/19 09:00 Constitutional: Yes: No Distress Eyes: Yes: Conjunctiva Clear, EOM Intact HENT: Yes: Atraumatic, Normocephalic Neck: Yes: Supple Cardiovascular: Yes: Regular Rate and Rhythm Respiratory: Yes: On Nasal O2, Rhonchi, SOB, SOB on Exertion Gastrointestinal: Yes: WNL, Normal Bowel Sounds, Soft, Abdomen, Obese Edema: Yes Edema: LLE: 1+, RLE: 1+ Neurological: Yes: Alert, Oriented Labs: CBC, BMP 12/19/19 05:22 12/19/19 05:22 Hospitalist Encounter Assessment: 79 yo female with PMH of HTN, HLD, DM, CHF, CKD, Hypothyroidism, CVA, ND, Dementia, Parkinson, Diverticulosis. Patient was BIBEMS from home to the ED with chief complain of SOB and Leg swelling. She was recenltly admitted for CHF/UTI between 12/02 - 12/11. Was admitted to ICU for CHF exacerbation and hypertensive emergency (BP 205/72 with protein in urine) requiring Nitro drip. Patient received 80 IV lasix in the ED and another 80 mg IV this AM. She will be started on 40 IV lasix this afternoon to be continued BID until CHF improves. This morning patient is off her nitro drip. BP currently 120/44. Patient is now stable to be transferred from ICU to [facility] medicine. Visit type - Medication Review Med list reviewed for High Risk Meds patients 65 and older: Yes - Emergency Visit Emergency Visit: Yes ED Registration Date: 12/19/19 Care time: The patient presented to the Emergency Department on the above date and was hospitalized for further evaluation of their emergent condition. - New Patient This patient is new to me today: No - Critical Care Critical Care patient: Yes Total Critical Care Time (in minutes): 36 Critical Care Statement: The care of this patient involved high complexity decision making to prevent further life threatening deterioration of the patient's condition and/or to evaluate & treat vital organ system(s) failure or risk of failure.
[2019-12-19] MEDS ORDERED: FUROSEMIDE 40 MG/4 ML INJECTABLE VIAL IVPUSH SCH (14:00)
--- NOTE | 2019-12-19 16:02 | PN ---
Progress Note, Physician Chief Complaint: CHF exacerbation History of Present Illness: 79 year old female with recurrent admissions for CHF, this being her 3rd admission within this month for CHF exacerbation, came in to [facility] ER on 12/19/19 with SOB, weakness, BLLE edema. Start on nitro drip upon admission for SBP>200 mmHg, tapered off and restarted on PO meds. - Current Medication List Current Medications: Active Medications Al Hydroxide/Mg Hydroxide (Mylanta Oral Suspension -) 30 ml PO Q6H PRN PRN Reason: DYSPEPSIA Aspirin (Asa -) 81 mg PO DAILY [facility] Atorvastatin Calcium (Lipitor -) 20 mg PO HS [facility] Furosemide (Lasix Injection -) 40 mg IVPUSH BID@0600,1400 [facility] Heparin Sodium (Porcine) (Heparin -) 5,000 unit SQ TID [facility] Levothyroxine Sodium (Synthroid -) 25 mcg PO DAILY@0700 [facility] Mirtazapine (Remeron -) 30 mg PO HS [facility] Nifedipine (Procardia Xl -) 90 mg PO DAILY [facility] Pancrelipase (Creon Dr 36,000 Units Capsule) 1 cap PO TIDCM [facility] Pantoprazole Sodium (Protonix -) 20 mg PO DAILY [facility] Senna/Docusate Sodium (Pericolace -) 2 tablet PO HS PRN PRN Reason: CONSTIPATION Trazodone HCl (Desyrel -) 50 mg PO HS [facility] - Objective Vital Signs: Vital Signs Temperature 98.3 F 12/19/19 14:00 Pulse Rate 67 12/19/19 14:00 Respiratory Rate 18 12/19/19 14:00 Blood Pressure 131/60 12/19/19 14:00 O2 Sat by Pulse Oximetry (%) 95 12/19/19 09:00 Constitutional: Yes: No Distress, Calm, Thin Cardiovascular: Yes: Regular Rate and Rhythm Respiratory: Yes: Regular, CTA Bilaterally Gastrointestinal: Yes: Normal Bowel Sounds, Soft Genitourinary: Yes: Incontinence Musculoskeletal: Yes: Muscle Weakness Edema: Yes Edema: LLE: 2+, RLE: 2+ Peripheral Pulses WNL: Yes Neurological: Yes: Alert, Pre-Existing Deficit (forgetful) Psychiatric: Yes: Alert Labs: CBC, BMP 12/19/19 05:22 12/19/19 05:22 Problem List - Problems (1) Acute on chronic diastolic (congestive) heart failure Assessment/Plan: -Cardiology consult -Tele monitoring -Furosemide 40 mg IVP BID -Continue nifedipine 90 mg po daily -Continue labetalol 200 mg po tid -Continue losartan 25 mg po daily -Low sodium diet Problems reviewed: Yes Code(s): I50.33 - ACUTE ON CHRONIC DIASTOLIC (CONGESTIVE) HEART FAILURE (2) CKD (chronic kidney disease) Assessment/Plan: -Nephrology consult -Cr at baseline -monitor trend Problems reviewed: Yes Code(s): N18.9 - CHRONIC KIDNEY DISEASE, UNSPECIFIED Qualifiers: Chronic kidney disease stage: stage 5, not on chronic dialysis Qualified Code(s): N18.5 - Chronic kidney disease, stage 5 (3) HTN (hypertension) Assessment/Plan: -as above -resume home meds Problems reviewed: Yes Code(s): I10 - ESSENTIAL (PRIMARY) HYPERTENSION (4) Weakness Assessment/Plan: -physical therapy -Check COVID 19 PCR Problems reviewed: Yes Code(s): R53.1 - WEAKNESS Assessment/Plan See problem list
[2019-12-19] MEDS ORDERED: DICYCLOMINE HCL 10 MG CAPSULE PO PRN (16:09)
[2019-12-19] MEDS ORDERED: ACETAMINOPHEN 325 MG TABLET (FP) ONE (17:12)
[2019-12-19] MEDS ORDERED: LIPASE/PROTEASE/AMYLASE 36,000 UNIT CAPSULE PO SCH (17:30)
[2019-12-19] MEDS: METOCLOPRAMIDE HCL 10 MG TABLET (FP) PO SCH (17:53)
[2019-12-19] MEDS: hydrALAZINE HCL 50 MG TABLET (FP) PO SCH (21:08)
[2019-12-19] MEDS: MIRTAZAPINE 15 MG TABLET (FP) PO SCH (21:08)
[2019-12-19] MEDS: LABETALOL HCL 100 MG TABLET (FP) PO SCH (21:08)
[2019-12-19] MEDS: ATORVASTATIN CA 20 MG TABLET (FP) PO SCH (21:08)
[2019-12-19] MEDS: traZODone HCL 50 MG TABLET (FP) PO SCH (21:08)
[2019-12-19] MEDS: SENNOSIDES/DOCUSATE COMBO (SENNA PLUS) TABLET (UD) PO SCH (21:09)
[2019-12-19] MEDS: ACETAMINOPHEN 500 MG TABLET (FP) PO PRN (21:09)
[2019-12-19] MEDS: DRONABINOL 2.5 MG CAPSULE PO SCH (21:09)
[2019-12-19] MEDS ORDERED: traZODone HCL 50 MG TABLET (FP) PO SCH (22:00)
[2019-12-19] MEDS ORDERED: SENNOSIDES/DOCUSATE COMBO (SENNA PLUS) TABLET (UD) PO PRN ×2 (22:00)
[2019-12-19] MEDS ORDERED: ATORVASTATIN CA 20 MG TABLET (FP) PO SCH (22:00)
[2019-12-19] MEDS ORDERED: MIRTAZAPINE 15 MG TABLET (FP) PO SCH (22:00)
[2019-12-19] MEDS ORDERED: CHLORHEXIDINE GLUCONATE 4% CLEANSER FOR DECOLONIZATION TP SCH ×2 (22:00)
[2019-12-19] MEDS ORDERED: HEPARIN NA (PORCINE) 5,000 UNITS/ML 1ML VIAL SQ SCH (22:00)
[2019-12-20] MEDS ORDERED: FUROSEMIDE 40 MG/4 ML INJECTABLE VIAL IVPUSH SCH (06:00)
[2019-12-20] MEDS: LABETALOL HCL 100 MG TABLET (FP) PO SCH ×3 (06:10→22:42)
[2019-12-20] MEDS: hydrALAZINE HCL 50 MG TABLET (FP) PO SCH ×3 (06:10→22:42)
[2019-12-20] MEDS: LEVOTHYROXINE NA 25 MCG TABLET (FP) PO SCH (06:10)
[2019-12-20] MEDS: METOCLOPRAMIDE HCL 10 MG TABLET (FP) PO SCH ×3 (06:10→16:32)
--- NOTE | 2019-12-20 08:35 | PN ---
Progress Note, Physician - Current Medication List Current Medications: Active Medications Acetaminophen (Tylenol -) 1,000 mg PO Q6H PRN PRN Reason: PAIN Last Admin: 12/19/19 21:09 Dose: 1,000 mg Documented by: Al Hydroxide/Mg Hydroxide (Mylanta Oral Suspension -) 30 ml PO Q6H PRN PRN Reason: DYSPEPSIA Aspirin (Asa -) 81 mg PO DAILY [facility] Atorvastatin Calcium (Lipitor -) 20 mg PO [facility] Last Admin: 12/19/19 21:08 Dose: 20 mg Documented by: Dicyclomine HCl (Bentyl -) 10 mg PO Q6H PRN PRN Reason: MUSCLE SPASMS Dronabinol (Marinol -) 2.5 mg PO BID [facility] Last Admin: 12/19/19 21:09 Dose: 2.5 mg Documented by: Heparin Sodium (Porcine) (Heparin -) 5,000 unit SQ BID [facility] Last Admin: 12/19/19 21:10 Dose: 5,000 unit Documented by: Hydralazine HCl (Apresoline -) 50 mg PO TID [facility] Last Admin: 12/20/19 06:10 Dose: 50 mg Documented by: Labetalol HCl (Normodyne -) 100 mg PO TID [facility] Last Admin: 12/20/19 06:10 Dose: 100 mg Documented by: Levothyroxine Sodium (Synthroid -) 25 mcg PO DAILY@0700 [facility] Last Admin: 12/20/19 06:10 Dose: 25 mcg Documented by: Losartan Potassium (Cozaar -) 25 mg PO DAILY [facility] Metoclopramide HCl (Reglan -) 10 mg PO TIDAC [facility] Last Admin: 12/20/19 06:10 Dose: 10 mg Documented by: Mirtazapine (Remeron -) 30 mg PO [facility] Last Admin: 12/19/19 21:08 Dose: 30 mg Documented by: Multivitamins/Minerals/Vitamin C (Tab-A-Vit -) 1 tab PO DAILY [facility] Nifedipine (Procardia Xl -) 90 mg PO DAILY [facility] Pantoprazole Sodium (Protonix -) 20 mg PO DAILY [facility] Polysaccharide Iron Complex (Niferex-150 -) 150 mg PO DAILY [facility] Senna/Docusate Sodium (Pericolace -) 2 tablet PO [facility] Last Admin: 12/19/19 21:09 Dose: 2 tablet Documented by: Trazodone HCl (Desyrel -) 50 mg PO HS [facility] Last Admin: 12/19/19 21:08 Dose: 50 mg Documented by: - Objective Vital Signs: Vital Signs Temperature 97.9 F 12/20/19 06:00 Pulse Rate 76 12/20/19 06:00 Respiratory Rate 18 12/20/19 06:00 Blood Pressure 160/61 12/20/19 06:00 O2 Sat by Pulse Oximetry (%) 94 L 12/20/19 06:00 Cardiovascular: Yes: S1, S2 Respiratory: Yes: Regular, CTA Bilaterally Gastrointestinal: Yes: Normal Bowel Sounds, Soft Labs: CBC, BMP 12/19/19 05:22 12/19/19 05:22 Assessment/Plan - Problems (1) Acute on chronic diastolic (congestive) heart failure Assessment/Plan: -Cardiology consult -Tele monitoring -Furosemide 80 mg IVP BID -Continue nifedipine 90 mg po daily -Continue labetalol 200 mg po tid -Continue losartan 25 mg po daily -Low sodium diet Problems reviewed: Yes Code(s): I50.33 - ACUTE ON CHRONIC DIASTOLIC (CONGESTIVE) HEART FAILURE (2) CKD (chronic kidney disease) Assessment/Plan: -Nephrology consult -Cr at baseline -monitor trend Problems reviewed: Yes Code(s): N18.9 - CHRONIC KIDNEY DISEASE, UNSPECIFIED Qualifiers: Chronic kidney disease stage: stage 5, not on chronic dialysis Qualified Code(s): N18.5 - Chronic kidney disease, stage 5 (3) HTN (hypertension) Assessment/Plan: -as above -resume home meds Problems reviewed: Yes Code(s): I10 - ESSENTIAL (PRIMARY) HYPERTENSION (4) Weakness Assessment/Plan: -physical therapy -Check COVID 19 PCR Problems reviewed: Yes Code(s): R53.1 - WEAKNESS
[2019-12-20] MEDS ORDERED: PT OWN MED DRAWER 7, Y5N ONE ×2 (09:25→14:00)
[2019-12-20] MEDS: HEPARIN NA (PORCINE) 5,000 UNITS/ML 1ML VIAL SQ SCH ×2 (09:33→22:43)
[2019-12-20] MEDS: ASPIRIN 81 MG CHEWABLE TABLETS PO SCH (09:33)
[2019-12-20] MEDS: DRONABINOL 2.5 MG CAPSULE PO SCH ×2 (09:33→22:43)
[2019-12-20] MEDS: PANTOPRAZOLE 20 MG TABLET PO SCH (09:34)
[2019-12-20] MEDS: IRON POLYSACCHARIDES 150 MG CAPSULE PO SCH (09:34)
[2019-12-20] MEDS: MULTIVITAMINS (DAILY MVI) TABLET (FP) PO SCH (09:34)
[2019-12-20] MEDS: NIFEdipine E.R. 90 MG TABLET PO SCH (09:34)
[2019-12-20] MEDS: ACETAMINOPHEN 500 MG TABLET (FP) PO PRN (09:35)
[2019-12-20] MEDS: FUROSEMIDE 40 MG/4 ML INJECTABLE VIAL IVPUSH SCH ×2 (09:44→14:11)
[2019-12-20] MEDS ORDERED: LOSARTAN POTASSIUM 25 MG TABLET PO SCH (10:00)
--- NOTE | 2019-12-20 11:11 | CONSULT ---
Consultation: REQUESTING PROVIDER: Dr. Espana CONSULT REQUEST: We have been asked to medically evaluate this patient for CKD. HISTORY OF PRESENT ILLNESS: Pt. is a 79 y.o. F w/ PMHx. of HTN, HLD, DM, HFpEF, CKD(stage 3), Hx. of CVA, Dementia Parkinson's and diverticulosis presents for shortness of breath, leg swelling and hypertensive emergency. Of note Pt. was recently admitted for CHF exacerbation and discharged with Labetalol 200mg TID, Procardia 120 mg, Lasix 40mg BID and Hydralazine 50mg TID. Pt. noted to be in Hypertensive ermegency with SBPs 200s and stared on Nitro gtt. Pt. weaned off gtt. Pt. currently denies any complaints and is asking to go to the bathroom. REVIEW OF SYSTEMS: As above PHYSICAL EXAMINATION Vital Signs - 24 hr 12/19/19 12/19/19 12/19/19 12:00 12:45 14:00 Temperature 98.3 F Pulse Rate 68 67 Respiratory 16 18 Rate Blood Pressure 144/64 131/60 O2 Sat by Pulse Oximetry (%) 12/19/19 12/19/19 12/20/19 18:00 21:00 02:04 Temperature 98.0 F 97.8 F 97.8 F Pulse Rate 74 76 66 Respiratory 16 18 18 Rate Blood Pressure 151/98 172/61 H 154/59 L O2 Sat by Pulse 99 93 L 97 Oximetry (%) 12/20/19 06:00 Temperature 97.9 F Pulse Rate 76 Respiratory 18 Rate Blood Pressure 160/61 O2 Sat by Pulse 94 L Oximetry (%) GENERAL: Awake, alert, and fully oriented, in no acute distress. HEAD: Normal with no signs of trauma. EYES: Sclera anicteric, conjunctiva clear. EARS, NOSE, THROAT: Moist mucous membranes. LUNGS: Breath sounds equal, clear to auscultation bilaterally. No wheezes, and no crackles. No accessory muscle use. HEART: Regular rate and rhythm, normal S1 and S2 without murmur ABDOMEN: Soft, nontender, not distended, normoactive bowel sounds, no guarding, no rebound, no masses. UPPER EXTREMITIES: warm, well-perfused. No peripheral edema. LOWER EXTREMITIES: 2+ dorsal pedal pulses, warm, well-perfused. No calf tenderness. 1+ pitting edema. NEUROLOGICAL: Moves all extremities PSYCHIATRIC: Cooperative. Good eye contact. Appropriate mood and affect. SKIN: Warm, dry Laboratory Results - last 24 hr 12/19/19 00:45 COVID-19 ([facility]) Not detected Active Medications Generic Name Dose Route Start Last Admin Trade Name Freq PRN Reason Stop Dose Admin Acetaminophen 1,000 mg 12/19/19 16:12 12/20/19 09:35 Tylenol - PO 1,000 mg Q6H PRN Administration PAIN Al Hydroxide/Mg Hydroxide 30 ml 12/19/19 14:40 Mylanta Oral Suspension - PO Q6H PRN DYSPEPSIA Aspirin 81 mg 12/20/19 10:00 12/20/19 09:33 Asa - PO 81 mg DAILY JOYCE Administration Atorvastatin Calcium 20 mg 12/19/19 22:00 12/19/19 21:08 Lipitor - PO 20 mg HS JOYCE Administration Dicyclomine HCl 10 mg 12/19/19 16:09 Bentyl - PO Q6H PRN MUSCLE SPASMS Dronabinol 2.5 mg 12/19/19 22:00 12/20/19 09:33 Marinol - PO 2.5 mg BID JOYCE Administration Furosemide 80 mg 12/20/19 08:45 12/20/19 09:44 Lasix Injection - IVPUSH 40 mg BID@0600,1400 JOYCE Administration Heparin Sodium (Porcine) 5,000 unit 12/19/19 22:00 12/20/19 09:33 Heparin - SQ 5,000 unit BID JOYCE Administration Hydralazine HCl 50 mg 12/19/19 22:00 12/20/19 06:10 Apresoline - PO 50 mg TID JOYCE Administration Labetalol HCl 200 mg 12/20/19 09:04 Normodyne - PO TID JOYCE Levothyroxine Sodium 25 mcg 12/20/19 07:00 12/20/19 06:10 Synthroid - PO 25 mcg DAILY@0700 JOYCE Administration Losartan Potassium 25 mg 12/20/19 10:00 12/20/19 09:34 Cozaar - PO 25 mg DAILY JOYCE Administration Metoclopramide HCl 10 mg 12/19/19 16:30 12/20/19 06:10 Reglan - PO 10 mg TIDAC JOYCE Administration Mirtazapine 30 mg 12/19/19 22:00 12/19/19 21:08 Remeron - PO 30 mg HS JOYCE Administration Multivitamins/Minerals/Vitamin C 1 tab 12/20/19 10:00 12/20/19 09:34 Tab-A-Vit - PO 1 tab DAILY JOYCE Administration Nifedipine 90 mg 12/20/19 10:00 12/20/19 09:34 Procardia Xl - PO 90 mg DAILY JOYCE Administration Pantoprazole Sodium 20 mg 12/20/19 10:00 12/20/19 09:34 Protonix - PO 20 mg DAILY JOYCE Administration Polysaccharide Iron Complex 150 mg 12/20/19 10:00 12/20/19 09:34 Niferex-150 - PO 150 mg DAILY JOYCE Administration Senna/Docusate Sodium 2 tablet 12/19/19 22:00 12/19/19 21:09 Pericolace - PO 2 tablet HS JOYCE Administration Trazodone HCl 50 mg 12/19/19 22:00 12/19/19 21:08 Desyrel - PO 50 mg HS JOYCE Administration ASSESSMENT/PLAN: Pt. is a 79 y.o. F w/ PMHx. of HTN, HLD, DM, HFpEF, CKD(stage 3), Hx. of CVA, Dementia, Parkinson's Disease and diverticulosis presents for shortness of breath, leg swelling and hypertensive emergency. #Hypertensive Emergency #HLD #DM #HFpEF #CKD #Hx. of CVA #Dementia #Pakinson's #Hyperkalemia #Normocytic Anemia Increase Labetalol to 200mg TID AND Increase Losartan to 50mg; c/w Procardia 90 and Hydralazine 50 Monitor VS c/w Lasix 80mg IV BID (Given that we increased Lasix we agree with the decrease in Procardia) Creatinine is at baseline Supplemental O2 PRN Potassium wnl c/w PO Iron Cardiology consult aprpeciated Echo from last admission reviewed DVT Ppx. with Hep SQ Dispo: We will continue to follow the patient. Thank you for this consultative opportunity. Visit type - Medication Review Med list reviewed for High Risk Meds patients 65 and older: Yes - Emergency Visit Emergency Visit: Yes ED Registration Date: 12/19/19 Care time: The patient presented to the Emergency Department on the above date and was hospitalized for further evaluation of their emergent condition. - New Patient This patient is new to me today: Yes Date on this admission: 12/20/19 - Critical Care Critical Care patient: No ATTENDING PHYSICIAN STATEMENT I saw and evaluated the patient. I reviewed the resident's note and discussed the case with the resident. I agree with the resident's findings and plan as documented. SUBJECTIVE: OBJECTIVE: ASSESSMENT AND PLAN:
[2019-12-20] MEDS ORDERED: LOSARTAN POTASSIUM 50 MG TABLET PO SCH (11:27)
--- NOTE | 2019-12-20 12:06 | PN ---
Teaching Attending Note Name of Resident: Panchito Acosta (Nephrology) ATTENDING PHYSICIAN STATEMENT I saw and evaluated the patient. I reviewed the resident's note and discussed the case with the resident. I agree with the resident's findings and plan as documented. Renal Pt is a 79 year old female with pmhx of htn, hld, dm, chf, ckd, dementia who presents with abdominal pain. She was found to have increased edema and congestion. She is a poor historian. pmhx htn hld dm dm chf ckd cva dementia allergies carbidopa ros malaise Current Medications Generic Name Dose Route Start Last Admin Trade Name Freq PRN Reason Stop Dose Admin Acetaminophen 1,000 mg 12/19/19 16:12 12/20/19 09:35 Tylenol - PO 1,000 mg Q6H PRN Administration PAIN Al Hydroxide/Mg Hydroxide 30 ml 12/19/19 14:40 Mylanta Oral Suspension - PO Q6H PRN DYSPEPSIA Aspirin 81 mg 12/20/19 10:00 12/20/19 09:33 Asa - PO 81 mg DAILY JOYCE Administration Atorvastatin Calcium 20 mg 12/19/19 22:00 12/19/19 21:08 Lipitor - PO 20 mg HS JOYCE Administration Dicyclomine HCl 10 mg 12/19/19 16:09 Bentyl - PO Q6H PRN MUSCLE SPASMS Dronabinol 2.5 mg 12/19/19 22:00 12/20/19 09:33 Marinol - PO 2.5 mg BID JOYCE Administration Furosemide 80 mg 12/20/19 08:45 12/20/19 09:44 Lasix Injection - IVPUSH 40 mg BID@0600,1400 JOYCE Administration Heparin Sodium (Porcine) 5,000 unit 12/19/19 22:00 12/20/19 09:33 Heparin - SQ 5,000 unit BID JOYCE Administration Hydralazine HCl 50 mg 12/19/19 22:00 12/20/19 06:10 Apresoline - PO 50 mg TID JOYCE Administration Labetalol HCl 200 mg 12/20/19 09:04 Normodyne - PO TID JOYCE Levothyroxine Sodium 25 mcg 12/20/19 07:00 12/20/19 06:10 Synthroid - PO 25 mcg DAILY@0700 JOYCE Administration Losartan Potassium 50 mg 12/20/19 11:27 Cozaar - PO DAILY JOYCE Metoclopramide HCl 10 mg 12/19/19 16:30 12/20/19 06:10 Reglan - PO 10 mg TIDAC JOYCE Administration Mirtazapine 30 mg 12/19/19 22:00 12/19/19 21:08 Remeron - PO 30 mg HS JOYCE Administration Multivitamins/Minerals/Vitamin C 1 tab 12/20/19 10:00 12/20/19 09:34 Tab-A-Vit - PO 1 tab DAILY JOYCE Administration Nifedipine 90 mg 12/20/19 10:00 12/20/19 09:34 Procardia Xl - PO 90 mg DAILY JOYCE Administration Pantoprazole Sodium 20 mg 12/20/19 10:00 12/20/19 09:34 Protonix - PO 20 mg DAILY JOYCE Administration Polysaccharide Iron Complex 150 mg 12/20/19 10:00 12/20/19 09:34 Niferex-150 - PO 150 mg DAILY JOYCE Administration Senna/Docusate Sodium 2 tablet 12/19/19 22:00 12/19/19 21:09 Pericolace - PO 2 tablet HS JOYCE Administration Trazodone HCl 50 mg 12/19/19 22:00 12/19/19 21:08 Desyrel - PO 50 mg HS JOYCE Administration Laboratory Tests 12/18/19 12/19/19 12/19/19 23:14 02:15 05:22 Sodium 142 Potassium 5.5 H 4.5 4.4 Creatinine 1.4 H cardio s1s2 pulm scattered rhonchi gi soft ext edema neuro confused Impression 1. JASPER 2. CKD 3. HLD 4. diverticulosis 5. HTN 6. DM 7. proteinuria 8. hypoalbuminemia 9. UTI 10. pleural effusion 11. chf 12. pericardial effusion without tamponade 13. fluid overload Impression - lasix 80 iv bid - increase losartan - monitor bp on current meds - can titrate labetolol as tolerated - avoid nsaids - avoid nephrotoxins
--- NOTE | 2019-12-20 12:29 | PN ---
Progress Note, Physician Chief Complaint: Breathing has improved No events on tele History of Present Illness: 79 year old female with a pmhx of htn, dm, hld, diastolic chf, h/o mod to large pericardial effusion which was small on echo 12/04/19, parkinson's, dementia, and cva who was recently admitted for uti/chf exacerbation who presents with sob. Family reports blood pressure has been running very high at home and sob, weakness, and lightheaded. No f/c/s. No n/v/d. Very elevated bnp Cr 1.5 K 5.5 CXR: b/l pleural effusions Echo 12/04/19: Limited study. Small pericardial effusion (<1cm) without cardiac tamponade. When compared with previous echo on 11/24/19, pericardial effusion is reduced. Echo 11/24/19: LVEF 50-55%. Normal RV. Mild LA dilatation. FCAV without . MAC. Minimal MR. Mild TR. Moderate to large pericardial effusion without cardiac tamponade. - Current Medication List Current Medications: Active Medications Acetaminophen (Tylenol -) 1,000 mg PO Q6H PRN PRN Reason: PAIN Last Admin: 12/20/19 09:35 Dose: 1,000 mg Documented by: Al Hydroxide/Mg Hydroxide (Mylanta Oral Suspension -) 30 ml PO Q6H PRN PRN Reason: DYSPEPSIA Aspirin (Asa -) 81 mg PO DAILY [facility] Last Admin: 12/20/19 09:33 Dose: 81 mg Documented by: Atorvastatin Calcium (Lipitor -) 20 mg PO HS [facility] Last Admin: 12/19/19 21:08 Dose: 20 mg Documented by: Dicyclomine HCl (Bentyl -) 10 mg PO Q6H PRN PRN Reason: MUSCLE SPASMS Dronabinol (Marinol -) 2.5 mg PO BID [facility] Last Admin: 12/20/19 09:33 Dose: 2.5 mg Documented by: Furosemide (Lasix Injection -) 80 mg IVPUSH BID@0600,1400 [facility] Last Admin: 12/20/19 09:44 Dose: 40 mg Documented by: Heparin Sodium (Porcine) (Heparin -) 5,000 unit SQ BID [facility] Last Admin: 12/20/19 09:33 Dose: 5,000 unit Documented by: Hydralazine HCl (Apresoline -) 50 mg PO TID [facility] Last Admin: 12/20/19 06:10 Dose: 50 mg Documented by: Labetalol HCl (Normodyne -) 200 mg PO TID [facility] Levothyroxine Sodium (Synthroid -) 25 mcg PO DAILY@0700 [facility] Last Admin: 12/20/19 06:10 Dose: 25 mcg Documented by: Losartan Potassium (Cozaar -) 50 mg PO DAILY [facility] Metoclopramide HCl (Reglan -) 10 mg PO TIDAC [facility] Last Admin: 12/20/19 12:19 Dose: Not Given Documented by: Mirtazapine (Remeron -) 30 mg PO [facility] Last Admin: 12/19/19 21:08 Dose: 30 mg Documented by: Multivitamins/Minerals/Vitamin C (Tab-A-Vit -) 1 tab PO DAILY [facility] Last Admin: 12/20/19 09:34 Dose: 1 tab Documented by: Nifedipine (Procardia Xl -) 90 mg PO DAILY [facility] Last Admin: 12/20/19 09:34 Dose: 90 mg Documented by: Pantoprazole Sodium (Protonix -) 20 mg PO DAILY [facility] Last Admin: 12/20/19 09:34 Dose: 20 mg Documented by: Polysaccharide Iron Complex (Niferex-150 -) 150 mg PO DAILY [facility] Last Admin: 12/20/19 09:34 Dose: 150 mg Documented by: Senna/Docusate Sodium (Pericolace -) 2 tablet PO [facility] Last Admin: 12/19/19 21:09 Dose: 2 tablet Documented by: Trazodone HCl (Desyrel -) 50 mg PO [facility] Last Admin: 12/19/19 21:08 Dose: 50 mg Documented by: - Objective Vital Signs: Vital Signs Temperature 97.9 F 12/20/19 06:00 Pulse Rate 76 12/20/19 06:00 Respiratory Rate 18 12/20/19 06:00 Blood Pressure 160/61 12/20/19 06:00 O2 Sat by Pulse Oximetry (%) 94 L 12/20/19 06:00 Constitutional: Yes: No Distress Neck: Yes: Supple Cardiovascular: Yes: Regular Rate and Rhythm, S1, S2 Respiratory: Yes: Rhonchi Gastrointestinal: Yes: Soft Edema: Yes Edema: LLE: 1+, RLE: 1+ Labs: CBC, BMP 12/19/19 05:22 12/19/19 05:22 Problem List - Problems (1) CHF (congestive heart failure) Code(s): I50.9 - HEART FAILURE, UNSPECIFIED Qualifiers: Heart failure type: unspecified Heart failure chronicity: acute on chronic Qualified Code(s): I50.9 - Heart failure, unspecified Assessment/Plan 79 year old female with a pmhx of htn, dm, hld, diastolic chf, h/o mod to large pericardial effusion which was small on echo 12/04/19, parkinson's, dementia, and cva who was recently admitted for uti/chf exacerbation who presents with sob. Family reports blood pressure has been running very high at home and sob, weakness, and lightheaded. No f/c/s. No n/v/d. Very elevated bnp Cr 1.5 K 5.5 CXR: b/l pleural effusions Echo 12/04/19: Limited study. Small pericardial effusion (<1cm) without cardiac tamponade. When compared with previous echo on 11/24/19, pericardial effusion is reduced. Echo 11/24/19: LVEF 50-55%. Normal RV. Mild LA dilatation. FCAV without . MAC. Minimal MR. Mild TR. Moderate to large pericardial effusion without cardiac tamponade. 1) Acute on chronic diastolic chf exacerbation likely in setting of uncontrolled htn. -Diurese furosemide 40mg IV bid. Monitor I/O's, lytes, bun/cr, and daily weights Will likely send home on torsemide upon discharge. -Continue nifedipine, labetalol, and hydralazine Losartan was increased to 50mg Will monitoor bp and has room to further increase regimen as needed
--- NOTE | 2019-12-20 12:37 | PN ---
Progress Note, Physician History of Present Illness: PULMONARY AWAKE CONFUSED ON NASAL O2,-RESP DISTRESS. BP CONTROLLED ON PO MEDS - Current Medication List Current Medications: Active Medications Acetaminophen (Tylenol -) 1,000 mg PO Q6H PRN PRN Reason: PAIN Last Admin: 12/20/19 09:35 Dose: 1,000 mg Documented by: Al Hydroxide/Mg Hydroxide (Mylanta Oral Suspension -) 30 ml PO Q6H PRN PRN Reason: DYSPEPSIA Aspirin (Asa -) 81 mg PO DAILY [facility] Last Admin: 12/20/19 09:33 Dose: 81 mg Documented by: Atorvastatin Calcium (Lipitor -) [address] [facility] Last Admin: 12/19/19 21:08 Dose: 20 mg Documented by: Dicyclomine HCl (Bentyl -) 10 mg PO Q6H PRN PRN Reason: MUSCLE SPASMS Dronabinol (Marinol -) 2.5 mg PO BID [facility] Last Admin: 12/20/19 09:33 Dose: 2.5 mg Documented by: Furosemide (Lasix Injection -) 80 mg IVPUSH BID@0600,1400 [facility] Last Admin: 12/20/19 09:44 Dose: 40 mg Documented by: Heparin Sodium (Porcine) (Heparin -) 5,000 unit SQ BID [facility] Last Admin: 12/20/19 09:33 Dose: 5,000 unit Documented by: Hydralazine HCl (Apresoline -) 50 mg PO TID [facility] Last Admin: 12/20/19 06:10 Dose: 50 mg Documented by: Labetalol HCl (Normodyne -) 200 mg PO TID [facility] Levothyroxine Sodium (Synthroid -) 25 mcg PO DAILY@0700 [facility] Last Admin: 12/20/19 06:10 Dose: 25 mcg Documented by: Losartan Potassium (Cozaar -) 50 mg PO DAILY [facility] Metoclopramide HCl (Reglan -) 10 mg PO TIDAC [facility] Last Admin: 12/20/19 12:19 Dose: Not Given Documented by: Mirtazapine (Remeron -) 30 mg PO HS [facility] Last Admin: 12/19/19 21:08 Dose: 30 mg Documented by: Multivitamins/Minerals/Vitamin C (Tab-A-Vit -) 1 tab PO DAILY [facility] Last Admin: 12/20/19 09:34 Dose: 1 tab Documented by: Nifedipine (Procardia Xl -) 90 mg PO DAILY [facility] Last Admin: 12/20/19 09:34 Dose: 90 mg Documented by: Pantoprazole Sodium (Protonix -) 20 mg PO DAILY [facility] Last Admin: 12/20/19 09:34 Dose: 20 mg Documented by: Polysaccharide Iron Complex (Niferex-150 -) 150 mg PO DAILY [facility] Last Admin: 12/20/19 09:34 Dose: 150 mg Documented by: Senna/Docusate Sodium (Pericolace -) [address] [facility] Last Admin: 12/19/19 21:09 Dose: 2 tablet Documented by: Trazodone HCl (Desyrel -) [address] [facility] Last Admin: 12/19/19 21:08 Dose: 50 mg Documented by: - Objective Vital Signs: Vital Signs Temperature 97.9 F 12/20/19 06:00 Pulse Rate 76 12/20/19 06:00 Respiratory Rate 18 12/20/19 06:00 Blood Pressure 160/61 12/20/19 06:00 O2 Sat by Pulse Oximetry (%) 94 L 12/20/19 06:00 Constitutional: Yes: Well Nourished, Other (AGITATED) Eyes: Yes: WNL HENT: Yes: WNL Neck: Yes: WNL Cardiovascular: Yes: Regular Rate and Rhythm, S1, S2 Respiratory: Yes: Rales, Other (POOR INSP EFORT) Gastrointestinal: Yes: Normal Bowel Sounds, Soft Extremities: Yes: WNL Edema: No Labs: CBC, BMP - ....Imaging X-ray: Image Reviewed ([facility] [employer]) Problem List - Problems (1) HTN (hypertension) Code(s): I10 - ESSENTIAL (PRIMARY) HYPERTENSION (2) JASPER (acute kidney injury) Code(s): N17.9 - ACUTE KIDNEY FAILURE, UNSPECIFIED (3) Acute on chronic diastolic heart failure Code(s): I50.33 - ACUTE ON CHRONIC DIASTOLIC (CONGESTIVE) HEART FAILURE (4) CKD (chronic kidney disease) Code(s): N18.9 - CHRONIC KIDNEY DISEASE, UNSPECIFIED Qualifiers: Chronic kidney disease stage: stage 5, not on chronic dialysis Qualified Code(s): N18.5 - Chronic kidney disease, stage 5 (5) Dementia Code(s): F03.90 - UNSPECIFIED DEMENTIA WITHOUT BEHAVIORAL DISTURBANCE (6) Diabetes Code(s): E11.9 - TYPE 2 DIABETES MELLITUS WITHOUT COMPLICATIONS Assessment/Plan ASSESSMENT AND PLAN: Hypertensive Urgency improved Acute on Chronic Diastolic Heart Failure Pericardial Effusion HTN DM Hyperlipidemia CKD Hypothyroidism Parkinsons Dementia h/o CVA - titrate oral BP meds - lasix - monitor urine output, creatinine - O2 to keep SpO2 >90% - DVT prophylaxis -f/u chest x-rays DR CAMPA
[2019-12-20] MEDS: MIRTAZAPINE 15 MG TABLET (FP) PO SCH (22:41)
[2019-12-20] MEDS: ATORVASTATIN CA 20 MG TABLET (FP) PO SCH (22:42)
[2019-12-20] MEDS: traZODone HCL 50 MG TABLET (FP) PO SCH (22:42)
[2019-12-20] MEDS: SENNOSIDES/DOCUSATE COMBO (SENNA PLUS) TABLET (UD) PO SCH (22:42)
[2019-12-21] MEDS ORDERED: LABETALOL HCL 5 MG/1 ML (100MG/20 ML VIAL) IVPB ONE (01:32)
[2019-12-21] MEDS: ACETAMINOPHEN 500 MG TABLET (FP) PO PRN (01:50)
[2019-12-21] MEDS: LABETALOL HCL 100 MG TABLET (FP) PO SCH ×3 (06:03→21:50)
[2019-12-21] MEDS: LEVOTHYROXINE NA 25 MCG TABLET (FP) PO SCH (06:03)
[2019-12-21] MEDS: FUROSEMIDE 40 MG/4 ML INJECTABLE VIAL IVPUSH SCH ×2 (06:03→14:58)
[2019-12-21] MEDS: hydrALAZINE HCL 50 MG TABLET (FP) PO SCH ×2 (06:04→14:58)
[2019-12-21] MEDS: METOCLOPRAMIDE HCL 10 MG TABLET (FP) PO SCH ×3 (06:04→16:13)
[2019-12-21 06:47] LABS: BASO % 1.3 % (0-2.0); EOS % 9.9 % (0-4.5); HEMATOCRIT 28.7 % (32.4-45.2); HEMOGLOBIN 9.5 GM/dL (10.7-15.3); LYMPH % 9.2 % (8-40); MCH 27.5 pg (25.7-33.7); MCHC 33.2 g/dl (32.0-36.0); MEAN CELL VOLUME 82.8 fl (80-96); MEAN PLT VOLUME 7.4 fl (7.5-11.1); MONO % 8.2 % (3.8-10.2); NEUT % 71.4 % (42.8-82.8); PLATELET COUNT 314 K/MM3 (134-434); RBC 3.46 M/mm3 (3.60-5.2); RDW 17.6 % (11.6-15.6); WHITE BLOOD COUNT 6.6 K/mm3 (4.0-10.0)
[2019-12-21 07:18] LABS: ALBUMIN 2.8 g/dl (3.4-5.0); BLOOD UREA NITROGEN 18.7 mg/dL (7-18); CALCIUM 8.2 mg/dL (8.5-10.1); POTASSIUM 3.5 mmol/L (3.5-5.1)
[2019-12-21 07:21] LABS: BILIRUBIN,TOTAL 0.5 mg/dL (0.2-1); CREATININE 1.4 mg/dL (0.55-1.3); TOT PROT 5.8 g/dl (6.4-8.2)
[2019-12-21] MEDS: NIFEdipine E.R. 90 MG TABLET PO SCH ×2 (08:43→10:55)
--- NOTE | 2019-12-21 08:44 | PN ---
Progress Note, Physician - Current Medication List Current Medications: Active Medications Acetaminophen (Tylenol -) 1,000 mg PO Q6H PRN PRN Reason: PAIN Last Admin: 12/21/19 01:50 Dose: 1,000 mg Documented by: Al Hydroxide/Mg Hydroxide (Mylanta Oral Suspension -) 30 ml PO Q6H PRN PRN Reason: DYSPEPSIA Aspirin (Asa -) 81 mg PO DAILY [facility] Last Admin: 12/20/19 09:33 Dose: 81 mg Documented by: Atorvastatin Calcium (Lipitor -) [address] [facility] Last Admin: 12/20/19 22:42 Dose: 20 mg Documented by: Dicyclomine HCl (Bentyl -) 10 mg PO Q6H PRN PRN Reason: MUSCLE SPASMS Dronabinol (Marinol -) 2.5 mg PO BID [facility] Last Admin: 12/20/19 22:43 Dose: 2.5 mg Documented by: Furosemide (Lasix Injection -) 80 mg IVPUSH BID@0600,1400 [facility] Last Admin: 12/21/19 06:03 Dose: 80 mg Documented by: Heparin Sodium (Porcine) (Heparin -) 5,000 unit SQ BID [facility] Last Admin: 12/20/19 22:43 Dose: 5,000 unit Documented by: Hydralazine HCl (Apresoline -) 50 mg PO TID [facility] Last Admin: 12/21/19 06:04 Dose: 50 mg Documented by: Labetalol HCl (Normodyne -) 200 mg PO TID [facility] Last Admin: 12/21/19 06:03 Dose: 200 mg Documented by: Levothyroxine Sodium (Synthroid -) 25 mcg PO DAILY@0700 [facility] Last Admin: 12/21/19 06:03 Dose: 25 mcg Documented by: Losartan Potassium (Cozaar -) 50 mg PO DAILY [facility] Metoclopramide HCl (Reglan -) 10 mg PO TIDAC [facility] Last Admin: 12/21/19 06:04 Dose: 10 mg Documented by: Mirtazapine (Remeron -) [address] [facility] Last Admin: 12/20/19 22:41 Dose: 30 mg Documented by: Multivitamins/Minerals/Vitamin C (Tab-A-Vit -) 1 tab PO DAILY [facility] Last Admin: 12/20/19 09:34 Dose: 1 tab Documented by: Nifedipine (Procardia Xl -) 90 mg PO DAILY [facility] Last Admin: 12/20/19 09:34 Dose: 90 mg Documented by: Pantoprazole Sodium (Protonix -) 20 mg PO DAILY [facility] Last Admin: 12/20/19 09:34 Dose: 20 mg Documented by: Polysaccharide Iron Complex (Niferex-150 -) 150 mg PO DAILY [facility] Last Admin: 12/20/19 09:34 Dose: 150 mg Documented by: Senna/Docusate Sodium (Pericolace -) [address] [facility] Last Admin: 12/20/19 22:42 Dose: 2 tablet Documented by: Trazodone HCl (Desyrel -) [address] [facility] Last Admin: 12/20/19 22:42 Dose: 50 mg Documented by: - Objective Vital Signs: Vital Signs Temperature 98.6 F 12/21/19 06:00 Pulse Rate 76 12/21/19 06:00 Respiratory Rate 18 12/21/19 06:00 Blood Pressure 170/85 12/21/19 06:00 O2 Sat by Pulse Oximetry (%) 98 12/21/19 06:00 Cardiovascular: Yes: S1, S2 Respiratory: Yes: Regular, CTA Bilaterally Gastrointestinal: Yes: Normal Bowel Sounds, Soft Edema: No Neurological: Yes: Alert, Confusion, Weakness Labs: CBC, BMP 12/21/19 05:36 12/21/19 05:36 Assessment/Plan - Problems (1) Acute on chronic diastolic (congestive) heart failure Assessment/Plan: -Cardiology consult -Tele monitoring -Furosemide 80 mg IVP BID -Continue nifedipine 90 mg po daily -Continue labetalol 200 mg po tid -Continue losartan 25 mg po daily -Low sodium diet Problems reviewed: Yes Code(s): I50.33 - ACUTE ON CHRONIC DIASTOLIC (CONGESTIVE) HEART FAILURE (2) CKD (chronic kidney disease) Assessment/Plan: -Nephrology consult -Cr at baseline -monitor trend Problems reviewed: Yes Code(s): N18.9 - CHRONIC KIDNEY DISEASE, UNSPECIFIED Qualifiers: Chronic kidney disease stage: stage 5, not on chronic dialysis Qualified Code(s): N18.5 - Chronic kidney disease, stage 5 (3) HTN (hypertension) Assessment/Plan: -as above -resume home meds Problems reviewed: Yes Code(s): I10 - ESSENTIAL (PRIMARY) HYPERTENSION (4) Weakness Assessment/Plan: -physical therapy -Check COVID 19 PCR Problems reviewed: Yes Code(s): R53.1 - WEAKNESS (5) Change in MS Assessment/Plan: -CT head
[2019-12-21] MEDS ORDERED: PT OWN MED DRAWER 7, Y5N ONE (10:50)
[2019-12-21] MEDS: IRON POLYSACCHARIDES 150 MG CAPSULE PO SCH (10:52)
[2019-12-21] MEDS: MULTIVITAMINS (DAILY MVI) TABLET (FP) PO SCH (10:53)
[2019-12-21] MEDS: ASPIRIN 81 MG CHEWABLE TABLETS PO SCH (10:53)
[2019-12-21] MEDS: PANTOPRAZOLE 20 MG TABLET PO SCH (10:53)
[2019-12-21] MEDS: DRONABINOL 2.5 MG CAPSULE PO SCH ×2 (10:53→21:50)
[2019-12-21] MEDS: HEPARIN NA (PORCINE) 5,000 UNITS/ML 1ML VIAL SQ SCH ×2 (10:55→21:49)
--- NOTE | 2019-12-21 14:22 | PN ---
Progress Note, Physician History of Present Illness: Pt seen and examined at bedside. She is awake and appears comfortable. She denies shortness of breath today. - Current Medication List Current Medications: Active Medications Acetaminophen (Tylenol -) 1,000 mg PO Q6H PRN PRN Reason: PAIN Last Admin: 12/21/19 01:50 Dose: 1,000 mg Documented by: Al Hydroxide/Mg Hydroxide (Mylanta Oral Suspension -) 30 ml PO Q6H PRN PRN Reason: DYSPEPSIA Aspirin (Asa -) 81 mg PO DAILY [facility] Last Admin: 12/21/19 10:53 Dose: 81 mg Documented by: Atorvastatin Calcium (Lipitor -) 20 mg PO [facility] Last Admin: 12/20/19 22:42 Dose: 20 mg Documented by: Dicyclomine HCl (Bentyl -) 10 mg PO Q6H PRN PRN Reason: MUSCLE SPASMS Dronabinol (Marinol -) 2.5 mg PO BID [facility] Last Admin: 12/21/19 10:53 Dose: 2.5 mg Documented by: Furosemide (Lasix Injection -) 80 mg IVPUSH BID@0600,1400 [facility] Last Admin: 12/21/19 06:03 Dose: 80 mg Documented by: Heparin Sodium (Porcine) (Heparin -) 5,000 unit SQ BID [facility] Last Admin: 12/21/19 10:55 Dose: 5,000 unit Documented by: Hydralazine HCl (Apresoline -) 50 mg PO TID [facility] Last Admin: 12/21/19 06:04 Dose: 50 mg Documented by: Labetalol HCl (Normodyne -) 200 mg PO TID [facility] Last Admin: 12/21/19 06:03 Dose: 200 mg Documented by: Levothyroxine Sodium (Synthroid -) 25 mcg PO DAILY@0700 [facility] Last Admin: 12/21/19 06:03 Dose: 25 mcg Documented by: Losartan Potassium (Cozaar -) 50 mg PO DAILY [facility] Last Admin: 12/21/19 08:43 Dose: 50 mg Documented by: Metoclopramide HCl (Reglan -) 10 mg PO TIDAC [facility] Last Admin: 12/21/19 11:04 Dose: Not Given Documented by: Mirtazapine (Remeron -) 30 mg PO [facility] Last Admin: 12/20/19 22:41 Dose: 30 mg Documented by: Multivitamins/Minerals/Vitamin C (Tab-A-Vit -) 1 tab PO DAILY [facility] Last Admin: 12/21/19 10:53 Dose: 1 tab Documented by: Nifedipine (Procardia Xl -) 90 mg PO DAILY [facility] Last Admin: 12/21/19 10:55 Dose: Not Given Documented by: Pantoprazole Sodium (Protonix -) 20 mg PO DAILY [facility] Last Admin: 12/21/19 10:53 Dose: 20 mg Documented by: Polysaccharide Iron Complex (Niferex-150 -) 150 mg PO DAILY [facility] Last Admin: 12/21/19 10:52 Dose: 150 mg Documented by: Senna/Docusate Sodium (Pericolace -) 2 tablet PO [facility] Last Admin: 12/20/19 22:42 Dose: 2 tablet Documented by: Trazodone HCl (Desyrel -) 50 mg PO [facility] Last Admin: 12/20/19 22:42 Dose: 50 mg Documented by: - Objective Vital Signs: Vital Signs Temperature 99.5 F 12/21/19 08:00 Pulse Rate 74 12/21/19 10:00 Respiratory Rate 17 12/21/19 10:00 Blood Pressure 182/68 H 12/21/19 10:00 O2 Sat by Pulse Oximetry (%) 99 12/21/19 09:00 Constitutional: Yes: Calm Eyes: Yes: Conjunctiva Clear HENT: Yes: Atraumatic Cardiovascular: Yes: S1, S2 Respiratory: Yes: CTA Bilaterally Gastrointestinal: Yes: Soft Genitourinary: Yes: Incontinence Musculoskeletal: Yes: Muscle Weakness Edema: Yes Edema: LLE: 1+, RLE: 1+ Neurological: Yes: Oriented Psychiatric: Yes: Oriented Labs: CBC, BMP 12/21/19 05:36 12/21/19 05:36 Assessment/Plan Current Medications Generic Name Dose Route Start Last Admin Trade Name Freq PRN Reason Stop Dose Admin Acetaminophen 1,000 mg 12/19/19 16:12 12/21/19 01:50 Tylenol - PO 1,000 mg Q6H PRN Administration PAIN Al Hydroxide/Mg Hydroxide 30 ml 12/19/19 14:40 Mylanta Oral Suspension - PO Q6H PRN DYSPEPSIA Aspirin 81 mg 12/20/19 10:00 12/21/19 10:53 Asa - PO 81 mg DAILY [facility] Administration Atorvastatin Calcium 20 mg 12/19/19 22:00 12/20/19 22:42 Lipitor - PO 20 mg HS JOYCE Administration Dicyclomine HCl 10 mg 12/19/19 16:09 Bentyl - PO Q6H PRN MUSCLE SPASMS Dronabinol 2.5 mg 12/19/19 22:00 12/21/19 10:53 Marinol - PO 2.5 mg BID JOYCE Administration Furosemide 80 mg 12/20/19 08:45 12/21/19 06:03 Lasix Injection - IVPUSH 80 mg BID@0600,1400 [facility] Administration Heparin Sodium (Porcine) 5,000 unit 12/19/19 22:00 12/21/19 10:55 Heparin - SQ 5,000 unit BID [facility] Administration Hydralazine HCl 50 mg 12/19/19 22:00 12/21/19 06:04 Apresoline - PO 50 mg TID JOYCE Administration Labetalol HCl 200 mg 12/20/19 09:04 12/21/19 06:03 Normodyne - PO 200 mg TID JOYCE Administration Levothyroxine Sodium 25 mcg 12/20/19 07:00 12/21/19 06:03 Synthroid - PO 25 mcg DAILY@0700 [facility] Administration Losartan Potassium 50 mg 12/20/19 11:27 12/21/19 08:43 Cozaar - PO 50 mg DAILY [facility] Administration Metoclopramide HCl 10 mg 12/19/19 16:30 12/21/19 11:04 Reglan - PO Not Given TIDAC [facility] Mirtazapine 30 mg 12/19/19 22:00 12/20/19 22:41 Remeron - PO 30 mg HS JOYCE Administration Multivitamins/Minerals/Vitamin C 1 tab 12/20/19 10:00 12/21/19 10:53 Tab-A-Vit - PO 1 tab DAILY [facility] Administration Nifedipine 90 mg 12/20/19 10:00 12/21/19 10:55 Procardia Xl - PO Not Given DAILY [facility] Pantoprazole Sodium 20 mg 12/20/19 10:00 12/21/19 10:53 Protonix - PO 20 mg DAILY [facility] Administration Polysaccharide Iron Complex 150 mg 12/20/19 10:00 12/21/19 10:52 Niferex-150 - PO 150 mg DAILY [facility] Administration Senna/Docusate Sodium 2 tablet 12/19/19 22:00 12/20/19 22:42 Pericolace - PO 2 tablet HS JOYEC Administration Trazodone HCl 50 mg 12/19/19 22:00 12/20/19 22:42 Desyrel - PO 50 mg HS JOYCE Administration Impression 1. JASPER 2. CKD 3. HLD 4. diverticulosis 5. HTN 6. DM 7. proteinuria 8. hypoalbuminemia 9. UTI 10. pleural effusion 11. chf 12. pericardial effusion without tamponade 13. fluid overload Impression - cont IV lasix - increase losartan - monitor bp - bp remains labile - will titrate up labetolol as well - avoid nsaids - avoid nephrotoxins
--- NOTE | 2019-12-21 14:29 | PN ---
Progress Note, Physician Chief Complaint: Comfortable at rest Tele sinus with no events and no pauses History of Present Illness: 79 year old female with a pmhx of htn, dm, hld, diastolic chf, h/o mod to large pericardial effusion which was small on echo 12/04/19, parkinson's, dementia, and cva who was recently admitted for uti/chf exacerbation who presents with sob. Family reports blood pressure has been running very high at home and sob, weakness, and lightheaded. No f/c/s. No n/v/d. Very elevated bnp Cr 1.5 K 5.5 CXR: b/l pleural effusions Echo 12/04/19: Limited study. Small pericardial effusion (<1cm) without cardiac tamponade. When compared with previous echo on 11/24/19, pericardial effusion is reduced. Echo 11/24/19: LVEF 50-55%. Normal RV. Mild LA dilatation. FCAV without . MAC. Minimal MR. Mild TR. Moderate to large pericardial effusion without cardiac tamponade. - Current Medication List Current Medications: Active Medications Acetaminophen (Tylenol -) 1,000 mg PO Q6H PRN PRN Reason: PAIN Last Admin: 12/21/19 01:50 Dose: 1,000 mg Documented by: Al Hydroxide/Mg Hydroxide (Mylanta Oral Suspension -) 30 ml PO Q6H PRN PRN Reason: DYSPEPSIA Aspirin (Asa -) 81 mg PO DAILY [facility] Last Admin: 12/21/19 10:53 Dose: 81 mg Documented by: Atorvastatin Calcium (Lipitor -) 20 mg PO HS [facility] Last Admin: 12/20/19 22:42 Dose: 20 mg Documented by: Dicyclomine HCl (Bentyl -) 10 mg PO Q6H PRN PRN Reason: MUSCLE SPASMS Dronabinol (Marinol -) 2.5 mg PO BID [facility] Last Admin: 12/21/19 10:53 Dose: 2.5 mg Documented by: Furosemide (Lasix Injection -) 80 mg IVPUSH BID@0600,1400 [facility] Last Admin: 12/21/19 06:03 Dose: 80 mg Documented by: Heparin Sodium (Porcine) (Heparin -) 5,000 unit SQ BID [facility] Last Admin: 12/21/19 10:55 Dose: 5,000 unit Documented by: Hydralazine HCl (Apresoline -) 50 mg PO TID [facility] Last Admin: 12/21/19 06:04 Dose: 50 mg Documented by: Labetalol HCl (Normodyne -) 300 mg PO TID [facility] Levothyroxine Sodium (Synthroid -) 25 mcg PO DAILY@0700 [facility] Last Admin: 12/21/19 06:03 Dose: 25 mcg Documented by: Losartan Potassium (Cozaar -) 50 mg PO ONCE ONE Stop: 12/21/19 14:23 Losartan Potassium (Cozaar -) 100 mg PO DAILY [facility] Metoclopramide HCl (Reglan -) 10 mg PO TIDAC [facility] Last Admin: 12/21/19 11:04 Dose: Not Given Documented by: Mirtazapine (Remeron -) 30 mg PO [facility] Last Admin: 12/20/19 22:41 Dose: 30 mg Documented by: Multivitamins/Minerals/Vitamin C (Tab-A-Vit -) 1 tab PO DAILY [facility] Last Admin: 12/21/19 10:53 Dose: 1 tab Documented by: Nifedipine (Procardia Xl -) 90 mg PO DAILY [facility] Last Admin: 12/21/19 10:55 Dose: Not Given Documented by: Pantoprazole Sodium (Protonix -) 20 mg PO DAILY [facility] Last Admin: 12/21/19 10:53 Dose: 20 mg Documented by: Polysaccharide Iron Complex (Niferex-150 -) 150 mg PO DAILY [facility] Last Admin: 12/21/19 10:52 Dose: 150 mg Documented by: Senna/Docusate Sodium (Pericolace -) 2 tablet PO [facility] Last Admin: 12/20/19 22:42 Dose: 2 tablet Documented by: Trazodone HCl (Desyrel -) 50 mg PO [facility] Last Admin: 12/20/19 22:42 Dose: 50 mg Documented by: - Objective Vital Signs: Vital Signs Temperature 99.5 F 12/21/19 08:00 Pulse Rate 74 12/21/19 10:00 Respiratory Rate 17 12/21/19 10:00 Blood Pressure 182/68 H 12/21/19 10:00 O2 Sat by Pulse Oximetry (%) 99 12/21/19 09:00 Constitutional: Yes: No Distress Neck: Yes: Supple Cardiovascular: Yes: Regular Rate and Rhythm, S1, S2 Respiratory: Yes: CTA Bilaterally Gastrointestinal: Yes: Soft Edema: LLE: Trace, RLE: Trace Labs: CBC, BMP 12/21/19 05:36 12/21/19 05:36 Problem List - Problems (1) CHF (congestive heart failure) Code(s): I50.9 - HEART FAILURE, UNSPECIFIED Qualifiers: Heart failure type: unspecified Heart failure chronicity: acute on chronic Qualified Code(s): I50.9 - Heart failure, unspecified Assessment/Plan 79 year old female with a pmhx of htn, dm, hld, diastolic chf, h/o mod to large pericardial effusion which was small on echo 12/04/19, parkinson's, dementia, and cva who was recently admitted for uti/chf exacerbation who presents with sob. Family reports blood pressure has been running very high at home and sob, weakness, and lightheaded. No f/c/s. No n/v/d. Very elevated bnp Cr 1.5 K 5.5 CXR: b/l pleural effusions Echo 12/04/19: Limited study. Small pericardial effusion (<1cm) without cardiac tamponade. When compared with previous echo on 11/24/19, pericardial effusion is reduced. Echo 11/24/19: LVEF 50-55%. Normal RV. Mild LA dilatation. FCAV without . MAC. Minimal MR. Mild TR. Moderate to large pericardial effusion without cardiac tamponade. 1) Acute on chronic diastolic chf exacerbation likely in setting of uncontrolled htn. -Continue furosemide 40mg IV bid. Monitor I/O's, lytes, bun/cr, and daily weights Will likely send home on torsemide upon discharge. -Needs bp control. Losartan was increased to 100mg daily. nifedipine 90mg Labetalol increased to 300mg tid and has room to go up to 400mg tid. Continue hydralazine 50mg but if still need better control after above than increase dose
[2019-12-21] MEDS ORDERED: LOSARTAN POTASSIUM 50 MG TABLET PO ONE (14:45)
[2019-12-21] MEDS: hydrALAZINE HCL 25 MG TABLET (FP) PO SCH (21:50)
[2019-12-21] MEDS: traZODone HCL 50 MG TABLET (FP) PO SCH (21:50)
[2019-12-21] MEDS: SENNOSIDES/DOCUSATE COMBO (SENNA PLUS) TABLET (UD) PO SCH (21:50)
[2019-12-21] MEDS: MIRTAZAPINE 15 MG TABLET (FP) PO SCH (21:50)
[2019-12-21] MEDS: ATORVASTATIN CA 20 MG TABLET (FP) PO SCH (21:50)
[2019-12-22] MEDS: FUROSEMIDE 40 MG/4 ML INJECTABLE VIAL IVPUSH SCH ×2 (06:18→14:39)
[2019-12-22] MEDS: LEVOTHYROXINE NA 25 MCG TABLET (FP) PO SCH (06:43)
[2019-12-22] MEDS: METOCLOPRAMIDE HCL 10 MG TABLET (FP) PO SCH ×3 (06:43→17:24)
[2019-12-22] MEDS: hydrALAZINE HCL 25 MG TABLET (FP) PO SCH ×3 (06:43→21:22)
[2019-12-22] MEDS ORDERED: LABETALOL HCL 5 MG/1 ML (100MG/20 ML VIAL) IVPUSH ONE (06:46)
[2019-12-22] MEDS: LABETALOL HCL 100 MG TABLET (FP) PO SCH ×3 (06:53→21:23)
[2019-12-22 07:16] LABS: ALBUMIN 2.5 g/dl (3.4-5.0); BILIRUBIN,TOTAL 0.5 mg/dL (0.2-1); BLOOD UREA NITROGEN 16.7 mg/dL (7-18); CALCIUM 7.9 mg/dL (8.5-10.1); CREATININE 1.3 mg/dL (0.55-1.3); POTASSIUM 3.2 mmol/L (3.5-5.1); TOT PROT 5.4 g/dl (6.4-8.2)
[2019-12-22] MEDS ORDERED: PT OWN MED DRAWER 7, Y5N ONE ×4 (08:41→11:46)
--- NOTE | 2019-12-22 09:04 | PN ---
Progress Note, Physician History of Present Illness: not taking meds - Current Medication List Current Medications: Active Medications Acetaminophen (Tylenol -) 1,000 mg PO Q6H PRN PRN Reason: PAIN Last Admin: 12/21/19 01:50 Dose: 1,000 mg Documented by: Al Hydroxide/Mg Hydroxide (Mylanta Oral Suspension -) 30 ml PO Q6H PRN PRN Reason: DYSPEPSIA Aspirin (Asa -) 81 mg PO DAILY [facility] Last Admin: 12/21/19 10:53 Dose: 81 mg Documented by: Atorvastatin Calcium (Lipitor -) 20 mg PO [facility] Last Admin: 12/21/19 21:50 Dose: Not Given Documented by: Dicyclomine HCl (Bentyl -) 10 mg PO Q6H PRN PRN Reason: MUSCLE SPASMS Dronabinol (Marinol -) 2.5 mg PO BID [facility] Last Admin: 12/21/19 21:50 Dose: 2.5 mg Documented by: Furosemide (Lasix Injection -) 80 mg IVPUSH BID@0600,1400 [facility] Last Admin: 12/22/19 06:18 Dose: 80 mg Documented by: Heparin Sodium (Porcine) (Heparin -) 5,000 unit SQ BID [facility] Last Admin: 12/21/19 21:49 Dose: 5,000 unit Documented by: Hydralazine HCl (Apresoline -) 75 mg PO TID [facility] Last Admin: 12/22/19 06:43 Dose: Not Given Documented by: Labetalol HCl (Normodyne -) 300 mg PO TID [facility] Last Admin: 12/22/19 06:53 Dose: Not Given Documented by: Levothyroxine Sodium (Synthroid -) 25 mcg PO DAILY@0700 [facility] Last Admin: 12/22/19 06:43 Dose: Not Given Documented by: Losartan Potassium (Cozaar -) 100 mg PO DAILY [facility] Metoclopramide HCl (Reglan -) 10 mg PO TIDAC [facility] Last Admin: 12/22/19 06:43 Dose: Not Given Documented by: Mirtazapine (Remeron -) 30 mg PO [facility] Last Admin: 12/21/19 21:50 Dose: 30 mg Documented by: Multivitamins/Minerals/Vitamin C (Tab-A-Vit -) 1 tab PO DAILY [facility] Last Admin: 12/21/19 10:53 Dose: 1 tab Documented by: Nifedipine (Procardia Xl -) 90 mg PO DAILY [facility] Last Admin: 12/21/19 10:55 Dose: Not Given Documented by: Pantoprazole Sodium (Protonix -) 20 mg PO DAILY [facility] Last Admin: 12/21/19 10:53 Dose: 20 mg Documented by: Polysaccharide Iron Complex (Niferex-150 -) 150 mg PO DAILY [facility] Last Admin: 12/21/19 10:52 Dose: 150 mg Documented by: Senna/Docusate Sodium (Pericolace -) 2 tablet PO [facility] Last Admin: 12/21/19 21:50 Dose: Not Given Documented by: Trazodone HCl (Desyrel -) 50 mg PO [facility] Last Admin: 12/21/19 21:50 Dose: 50 mg Documented by: - Objective Vital Signs: Vital Signs Temperature 98.3 F 12/22/19 06:00 Pulse Rate 72 12/22/19 06:00 Respiratory Rate 20 12/22/19 06:00 Blood Pressure 232/72 H 12/22/19 06:00 O2 Sat by Pulse Oximetry (%) 100 12/22/19 06:00 Cardiovascular: Yes: S1, S2 Respiratory: Yes: Regular, CTA Bilaterally Gastrointestinal: Yes: Normal Bowel Sounds, Soft Labs: CBC, BMP 12/21/19 05:36 12/22/19 06:07 Assessment/Plan - Problems (1) Acute on chronic diastolic (congestive) heart failure Assessment/Plan: -Cardiology consult -Tele monitoring -Furosemide 80 mg IVP BID -Continue nifedipine 90 mg po daily -Continue labetalol 200 mg po tid -Continue losartan 25 mg po daily -Low sodium diet Problems reviewed: Yes Code(s): I50.33 - ACUTE ON CHRONIC DIASTOLIC (CONGESTIVE) HEART FAILURE (2) CKD (chronic kidney disease) Assessment/Plan: -Nephrology consult -Cr at baseline -monitor trend Problems reviewed: Yes Code(s): N18.9 - CHRONIC KIDNEY DISEASE, UNSPECIFIED Qualifiers: Chronic kidney disease stage: stage 5, not on chronic dialysis Qualified Code(s): N18.5 - Chronic kidney disease, stage 5 (3) HTN (hypertension) Assessment/Plan: -Since spitting out meds - will start iv labetolol Problems reviewed: Yes Code(s): I10 - ESSENTIAL (PRIMARY) HYPERTENSION (4) Weakness Assessment/Plan: -physical therapy -COVID 19 PCR Negative Problems reviewed: Yes Code(s): R53.1 - WEAKNESS (5) Change in MS Assessment/Plan: -CT head nad will discuss with family GOC
[2019-12-22] MEDS: IRON POLYSACCHARIDES 150 MG CAPSULE PO SCH (09:13)
[2019-12-22] MEDS: HEPARIN NA (PORCINE) 5,000 UNITS/ML 1ML VIAL SQ SCH ×2 (09:13→21:21)
[2019-12-22] MEDS: LOSARTAN POTASSIUM 50 MG TABLET PO SCH (09:13)
[2019-12-22] MEDS: PANTOPRAZOLE 20 MG TABLET PO SCH (09:13)
[2019-12-22] MEDS: MULTIVITAMINS (DAILY MVI) TABLET (FP) PO SCH (09:14)
[2019-12-22] MEDS: NIFEdipine E.R. 90 MG TABLET PO SCH (09:14)
[2019-12-22] MEDS: DRONABINOL 2.5 MG CAPSULE PO SCH ×2 (09:14→21:22)
[2019-12-22] MEDS: ASPIRIN 81 MG CHEWABLE TABLETS PO SCH (09:14)
--- NOTE | 2019-12-22 11:40 | CONSULT ---
Consultation: REQUESTING PROVIDER: CONSULT REQUEST: We have been asked to medically evaluate this patient for (specify). HISTORY OF PRESENT ILLNESS: Patient is a 79 YO F with PMH HTN, HLD, DM, CHF, CKD, Hypothyroidism, CVA, DE, Dementia, Parkinson, Diverticulosis who was BIBEMS from home for SOB and leg swe lling. She received 80 IV lasix in the ED. She was admitted to ICU for CHF exacerbation and hypertensive emergency (BP 205/72 with protein in urine) requiring Nitro drip. After her BP stabilized, her nitro drip was turned off and she was transferred [facility]. This morning, her BP was 232/72. Patient spit out her medications, so IV labetalol was ordered by primary. ICU was consulted for Hypertensive urgency. After patient was admitted to ICU, patient took her PO nifedipine, losartan, and furosemide. Her repeat systolic BP 2 hours later was in the 170s. Denied headache, N/V, dizziness, visual changes, chest pain, SOB. REVIEW OF SYSTEMS: CONSTITUTIONAL: Absent: fever, chills, diaphoresis, generalized weakness, malaise, loss of appetite, weight change HEENT: Absent: rhinorrhea, nasal congestion, throat pain, throat swelling, difficulty swallowing, mouth swelling, ear pain, eye pain, visual changes CARDIOVASCULAR: Absent: chest pain, syncope, palpitations, irregular heart rate, lightheadedness, peripheral edema RESPIRATORY: Absent: cough, shortness of breath, dyspnea with exertion, orthopnea, wheezing, stridor, hemoptysis GASTROINTESTINAL: Absent: abdominal pain, abdominal distension, nausea, vomiting, diarrhea, constipation, melena, hematochezia GENITOURINARY: Absent: dysuria, frequency, urgency, hesitancy, hematuria, flank pain, genital pain MUSCULOSKELETAL: Absent: myalgia, arthralgia, joint swelling, back pain, neck pain SKIN: Absent: rash, itching, pallor HEMATOLOGIC/IMMUNOLOGIC: Absent: easy bleeding, easy bruising, lymphadenopathy, frequent infections ENDOCRINE: Absent: unexplained weight gain, unexplained weight loss, heat intolerance, cold intolerance NEUROLOGIC: Absent: headache, focal weakness or paresthesias, dizziness, unsteady gait, seizure, mental status changes, bladder or bowel incontinence PSYCHIATRIC: Absent: anxiety, depression, suicidal or homicidal ideation, hallucinations. PHYSICAL EXAMINATION Vital Signs - 24 hr 12/21/19 12/21/19 12/21/19 14:00 18:00 21:00 Temperature 98.2 F 98.1 F Pulse Rate 74 78 Respiratory 18 16 Rate Blood Pressure 164/63 199/69 H O2 Sat by Pulse 95 Oximetry (%) 12/21/19 12/22/19 12/22/19 22:00 02:00 06:00 Temperature 98.8 F 98.2 F 98.3 F Pulse Rate 77 69 72 Respiratory 20 20 20 Rate Blood Pressure 201/83 H 188/88 H 232/72 H O2 Sat by Pulse 95 100 100 Oximetry (%) 12/22/19 12/22/19 12/22/19 09:00 10:00 11:32 Temperature 98.5 F 98.5 F Pulse Rate 72 72 Respiratory 20 17 Rate Blood Pressure 205/72 H 177/56 H O2 Sat by Pulse 96 96 99 Oximetry (%) GENERAL: Awake, alert, and fully oriented, in no acute distress. HEENT: Normal with no signs of trauma.Pupils equal, round and reactive to light, No lid lag. MMM, no JVD LUNGS: Breath sounds equal, clear to auscultation bilaterally. No wheezes, and no crackles. No accessory muscle use. HEART: Regular rate and rhythm, normal S1 and S2. systolic murmur ABDOMEN: Soft, nontender, not distended, normoactive bowel sounds, no guarding UPPER EXTREMITIES: 2+ pulses, warm, well-perfused. No cyanosis. No peripheral edema. LOWER EXTREMITIES: 2+ pulses, warm, well-perfused. No calf tenderness. trace edema NEUROLOGICAL: Normal speech. Gait not assessed PSYCHIATRIC: Cooperative. Good eye contact. Appropriate mood and affect. Laboratory Results - last 24 hr 12/22/19 06:07 Sodium 148 H Potassium 3.2 L Chloride 112 H Carbon Dioxide 30 Anion Gap 6 L BUN 16.7 Creatinine 1.3 Est GFR (CKD-EPI)AfAm 45.83 Est GFR (CKD-EPI)NonAf 39.54 Random Glucose 75 Calcium 7.9 L Total Bilirubin 0.5 AST 18 ALT 12 L Alkaline Phosphatase 119 H Total Protein 5.4 L Albumin 2.5 L Active Medications Generic Name Dose Route Start Last Admin Trade Name Freq PRN Reason Stop Dose Admin Acetaminophen 1,000 mg 12/19/19 16:12 12/21/19 01:50 Tylenol - PO 1,000 mg Q6H PRN Administration PAIN Al Hydroxide/Mg Hydroxide 30 ml 12/19/19 14:40 Mylanta Oral Suspension - PO Q6H PRN DYSPEPSIA Aspirin 81 mg 12/20/19 10:00 12/22/19 09:14 Asa - PO 81 mg DAILY [facility] Administration Atorvastatin Calcium 20 mg 12/19/19 22:00 12/21/19 21:50 Lipitor - PO Not Given HS [facility] Chlorhexidine Gluconate 1 applic 12/22/19 22:00 Hibiclens For Decolonization - TP HS [facility] Dicyclomine HCl 10 mg 12/19/19 16:09 Bentyl - PO Q6H PRN MUSCLE SPASMS Dronabinol 2.5 mg 12/19/19 22:00 12/22/19 09:14 Marinol - PO 2.5 mg BID [facility] Administration Furosemide 80 mg 12/20/19 08:45 12/22/19 06:18 Lasix Injection - IVPUSH 80 mg BID@0600,1400 [facility] Administration Heparin Sodium (Porcine) 5,000 unit 12/19/19 22:00 12/22/19 09:13 Heparin - SQ 5,000 unit BID [facility] Administration Hydralazine HCl 75 mg 12/21/19 22:00 12/22/19 06:43 Apresoline - PO Not Given TID [facility] Hydralazine HCl 10 mg 12/22/19 09:05 Apresoline Injection - IVPUSH Q6H PRN HYPERTENSION Labetalol HCl 1,000 mg/ 1,000 mls @ 120 mls/hr 12/22/19 09:15 Dextrose IV TITR [facility] 2 MG/MIN Insulin Aspart 1 vial 12/22/19 16:30 Novolog Vial Sliding Scale - SQ ACHS [facility] Protocol Labetalol HCl 300 mg 12/21/19 14:23 12/22/19 06:53 Normodyne - PO Not Given TID [facility] Levothyroxine Sodium 25 mcg 12/20/19 07:00 12/22/19 06:43 Synthroid - PO Not Given DAILY@0700 [facility] Losartan Potassium 100 mg 12/21/19 14:22 12/22/19 09:13 Cozaar - PO 100 mg DAILY [facility] Administration Metoclopramide HCl 10 mg 12/19/19 16:30 12/22/19 11:06 Reglan - PO Not Given TIDAC [facility] Mirtazapine 30 mg 12/19/19 22:00 12/21/19 21:50 Remeron - PO 30 mg HS [facility] Administration Multivitamins/Minerals/Vitamin C 1 tab 12/20/19 10:00 12/22/19 09:14 Tab-A-Vit - PO 1 tab DAILY [facility] Administration Mupirocin 1 applic 12/22/19 22:00 Bactroban Ointment (For Decolonization) - NS 12/27/19 21:59 BID [facility] Nifedipine 90 mg 12/20/19 10:00 12/22/19 09:14 Procardia Xl - PO 90 mg DAILY [facility] Administration Pantoprazole Sodium 20 mg 12/20/19 10:00 12/22/19 09:13 Protonix - PO 20 mg DAILY [facility] Administration Polysaccharide Iron Complex 150 mg 12/20/19 10:00 12/22/19 09:13 Niferex-150 - PO 150 mg DAILY [facility] Administration Senna/Docusate Sodium 2 tablet 12/19/19 22:00 12/21/19 21:50 Pericolace - PO Not Given HS [facility] Trazodone HCl 50 mg 12/19/19 22:00 12/21/19 21:50 Desyrel - PO 50 mg HS [facility] Administration ASSESSMENT/PLAN: Patient is a 79 YO F with PMH HTN, HLD, DM, CHF, CKD, Hypothyroidism, CVA, DE, Dementia, Parkinson, Diverticulosis who was BIBEMS from home for SOB and leg swelling. Initially admitted to ICU for CHF exacerbation and hypertensive emergency (BP 205/72 with protein in urine) requiring Nitro drip and sent to tele after her BP stabilized. Patient was re-transferred to the ICU for Hypertensive urgency 2/2 medication non-compliance on the floor Neuro #Parkinson #CVA Hx #Dementia - Trazadone 50 mg HS - Mirtazapine 30 mg HS - memantine/Donepezil was held by primary Cardio #Acute on Chronic CHF - BNP 80k -Cardio & Renal consult appreciated. Decreased Furosemide to 40 PO BID -Continue with nifedipine 90 mg po daily, labetalol 300 mg PO TID, losartan 100 mg PO daily #Hypertensive urgency -Continue with nifedipine 90 mg po daily, labetalol 300 mg PO TID, losartan 100 mg PO daily -hydralazine 10 mg IV push Q6H if BP not controlled with PO meds. If hydralazine does not control BP, will consider labetalol drip -consider imaging of renal arteries given uncontrolled HTN despite multiple medications #HLD - Aspirin 81 - Atorvastatin 20 HS Pulm - CXR: widened mediastinum, bilateral congestion, bilateral basilar infiltrates/atelectasis GI - Pantoprazole (20mg) - Creon (36k, TIDAC) - Sennoside (2 tab, HS) - Mylanta (30mL, q6) RENAL #CKD -BUN/CR -Renal consult appreciated. Avoid NSAIDs & nephrotoxic agents - Monitor Is and Os Endo #hypothyroidism -continue with home dose Synthroid (25mcg) FEN Na restrictive Diet DVT PPX heparin 5000 BID sq DISPO ICU Dispo: We will continue to follow the patient. Thank you for this consultative opportunity. \ Visit type - Medication Review Med list reviewed for High Risk Meds patients 65 and older: Yes - Emergency Visit Emergency Visit: Yes ED Registration Date: 12/19/19 Care time: The patient presented to the Emergency Department on the above date and was hospitalized for further evaluation of their emergent condition. - New Patient This patient is new to me today: No - Critical Care Critical Care patient: Yes Total Critical Care Time (in minutes): 36 Critical Care Statement: The care of this patient involved high complexity decision making to prevent further life threatening deterioration of the patient's condition and/or to evaluate & treat vital organ system(s) failure or risk of failure. ATTENDING PHYSICIAN STATEMENT I saw and evaluated the patient. I reviewed the resident's note and discussed the case with the resident. I agree with the resident's findings and plan as documented. SUBJECTIVE: OBJECTIVE: ASSESSMENT AND PLAN:
[2019-12-22] MEDS ORDERED: LABETALOL HCL 100 MG TABLET (FP) PO ONE (11:43)
[2019-12-22] MEDS ORDERED: hydrALAZINE HCL 50 MG TABLET (FP) PO ONE (11:44)
[2019-12-22] MEDS: LABETALOL HCL INJECTION 1,000 MG in DEXTROSE 5%-WATER - 800 ML IV SCH (12:07)
--- NOTE | 2019-12-22 13:11 | PN ---
Teaching Attending Note Name of Resident: Lj Abdi ATTENDING PHYSICIAN STATEMENT I saw and evaluated the patient. I reviewed the resident's note and discussed the case with the resident. I agree with the resident's findings and plan as documented. SUBJECTIVE: Patient seen and examined in the ICU. Transferred due to Hypertensive urgency, 225/90. Denies CP or SOB. Apparently has been refusing PO meds (?). Started on IV Labetalol. Intake & Output 12/19/19 12/20/19 12/21/19 12/22/19 23:59 23:59 23:59 23:59 Intake Total 860 440 50 20 Output Total 750 Balance 110 440 50 20 Weight 127 lb 6.4 oz 135 lb 135 lb Last Vital Signs Temp Pulse Resp BP Pulse Ox 98.5 F 74 16 170/58 L 99 12/22/19 11:32 12/22/19 12:00 12/22/19 12:00 12/22/19 12:00 12/22/19 12:27 Active Medications Acetaminophen (Tylenol -) 1,000 mg PO Q6H PRN PRN Reason: PAIN Last Admin: 12/21/19 01:50 Dose: 1,000 mg Documented by: Al Hydroxide/Mg Hydroxide (Mylanta Oral Suspension -) 30 ml PO Q6H PRN PRN Reason: DYSPEPSIA Aspirin (Asa -) 81 mg PO DAILY [facility] Last Admin: 12/22/19 09:14 Dose: 81 mg Documented by: Atorvastatin Calcium (Lipitor -) 20 mg PO HS [facility] Last Admin: 12/21/19 21:50 Dose: Not Given Documented by: Chlorhexidine Gluconate (Hibiclens For Decolonization -) 1 applic TP [facility] Dicyclomine HCl (Bentyl -) 10 mg PO Q6H PRN PRN Reason: MUSCLE SPASMS Dronabinol (Marinol -) 2.5 mg PO BID [facility] Last Admin: 12/22/19 09:14 Dose: 2.5 mg Documented by: Furosemide (Lasix Injection -) 80 mg IVPUSH BID@0600,1400 [facility] Last Admin: 12/22/19 06:18 Dose: 80 mg Documented by: Heparin Sodium (Porcine) (Heparin -) 5,000 unit SQ BID [facility] Last Admin: 12/22/19 09:13 Dose: 5,000 unit Documented by: Hydralazine HCl (Apresoline -) 75 mg PO TID [facility] Last Admin: 12/22/19 13:02 Dose: Not Given Documented by: Hydralazine HCl (Apresoline Injection -) 10 mg IVPUSH Q6H PRN PRN Reason: HYPERTENSION Labetalol HCl 1,000 mg/ (Dextrose) 1,000 mls @ 120 mls/hr IV TITR [facility] Last Admin: 12/22/19 12:07 Dose: Not Given Documented by: Insulin Aspart (Novolog Vial Sliding Scale -) 1 vial SQ ACHS [facility]; Protocol Labetalol HCl (Normodyne -) 300 mg PO TID [facility] Last Admin: 12/22/19 13:03 Dose: Not Given Documented by: Levothyroxine Sodium (Synthroid -) 25 mcg PO DAILY@0700 [facility] Last Admin: 12/22/19 06:43 Dose: Not Given Documented by: Losartan Potassium (Cozaar -) 100 mg PO DAILY [facility] Last Admin: 12/22/19 09:13 Dose: 100 mg Documented by: Metoclopramide HCl (Reglan -) 10 mg PO TIDAC [facility] Last Admin: 12/22/19 11:06 Dose: Not Given Documented by: Mirtazapine (Remeron -) 30 mg PO [facility] Last Admin: 12/21/19 21:50 Dose: 30 mg Documented by: Multivitamins/Minerals/Vitamin C (Tab-A-Vit -) 1 tab PO DAILY [facility] Last Admin: 12/22/19 09:14 Dose: 1 tab Documented by: Mupirocin (Bactroban Ointment (For Decolonization) -) 1 applic NS BID [facility] Stop: 12/27/19 21:59 Nifedipine (Procardia Xl -) 90 mg PO DAILY [facility] Last Admin: 12/22/19 09:14 Dose: 90 mg Documented by: Pantoprazole Sodium (Protonix -) 20 mg PO DAILY [facility] Last Admin: 12/22/19 09:13 Dose: 20 mg Documented by: Polysaccharide Iron Complex (Niferex-150 -) 150 mg PO DAILY [facility] Last Admin: 12/22/19 09:13 Dose: 150 mg Documented by: Senna/Docusate Sodium (Pericolace -) 2 tablet PO [facility] Last Admin: 12/21/19 21:50 Dose: Not Given Documented by: Trazodone HCl (Desyrel -) 50 mg PO [facility] Last Admin: 12/21/19 21:50 Dose: 50 mg Documented by: Constitutional: Yes: NAD Eyes: Yes: WNL HENT: Yes: WNL Neck: Yes: WNL Cardiovascular: Yes: Regular Rate and Rhythm, S1, S2 Respiratory: Yes: Few scattered rhonchi Gastrointestinal: Yes: Normal Bowel Sounds, Soft Extremities: Yes: WNL Edema: No Labs: Laboratory Results - last 24 hr 12/22/19 06:07 Sodium 148 H Potassium 3.2 L Chloride 112 H Carbon Dioxide 30 Anion Gap 6 L BUN 16.7 Creatinine 1.3 Est GFR (CKD-EPI)AfAm 45.83 Est GFR (CKD-EPI)NonAf 39.54 Random Glucose 75 Calcium 7.9 L Total Bilirubin 0.5 AST 18 ALT 12 L Alkaline Phosphatase 119 H Total Protein 5.4 L Albumin 2.5 L Problem List - Problems (1) HTN (hypertension) Code(s): I10 - ESSENTIAL (PRIMARY) HYPERTENSION (2) JASPER (acute kidney injury) Code(s): N17.9 - ACUTE KIDNEY FAILURE, UNSPECIFIED (3) Acute on chronic diastolic heart failure Code(s): I50.33 - ACUTE ON CHRONIC DIASTOLIC (CONGESTIVE) HEART FAILURE (4) CKD (chronic kidney disease) Code(s): N18.9 - CHRONIC KIDNEY DISEASE, UNSPECIFIED Qualifiers: Chronic kidney disease stage: stage 5, not on chronic dialysis Qualified Code(s): N18.5 - Chronic kidney disease, stage 5 (5) Dementia Code(s): F03.90 - UNSPECIFIED DEMENTIA WITHOUT BEHAVIORAL DISTURBANCE (6) Diabetes Code(s): E11.9 - TYPE 2 DIABETES MELLITUS WITHOUT COMPLICATIONS Assessment/Plan Hypertensive Urgency Acute on Chronic Diastolic Heart Failure Pericardial Effusion HTN DM Hyperlipidemia CKD Hypothyroidism Parkinsons Dementia h/o CVA - Noted IV Labetalol - PO meds - lasix - monitor urine output, creatinine - O2 to keep SpO2 >90% - DVT prophylaxis Dr Zee
--- NOTE | 2019-12-22 13:53 | PN ---
Progress Note, Physician Chief Complaint: No complaints BP was up earlier but was not taking meds History of Present Illness: 79 year old female with a pmhx of htn, dm, hld, diastolic chf, h/o mod to large pericardial effusion which was small on echo 12/04/19, parkinson's, dementia, and cva who was recently admitted for uti/chf exacerbation who presents with sob. Family reports blood pressure has been running very high at home and sob, weakness, and lightheaded. No f/c/s. No n/v/d. Very elevated bnp Cr 1.5 K 5.5 CXR: b/l pleural effusions Echo 12/04/19: Limited study. Small pericardial effusion (<1cm) without cardiac tamponade. When compared with previous echo on 11/24/19, pericardial effusion is reduced. Echo 11/24/19: LVEF 50-55%. Normal RV. Mild LA dilatation. FCAV without . MAC. Minimal MR. Mild TR. Moderate to large pericardial effusion without cardiac tamponade. - Current Medication List Current Medications: Active Medications Acetaminophen (Tylenol -) 1,000 mg PO Q6H PRN PRN Reason: PAIN Last Admin: 12/21/19 01:50 Dose: 1,000 mg Documented by: Al Hydroxide/Mg Hydroxide (Mylanta Oral Suspension -) 30 ml PO Q6H PRN PRN Reason: DYSPEPSIA Aspirin (Asa -) 81 mg PO DAILY [facility] Last Admin: 12/22/19 09:14 Dose: 81 mg Documented by: Atorvastatin Calcium (Lipitor -) 20 mg PO HS [facility] Last Admin: 12/21/19 21:50 Dose: Not Given Documented by: Chlorhexidine Gluconate (Hibiclens For Decolonization -) 1 applic TP [facility] Dicyclomine HCl (Bentyl -) 10 mg PO Q6H PRN PRN Reason: MUSCLE SPASMS Dronabinol (Marinol -) 2.5 mg PO BID [facility] Last Admin: 12/22/19 09:14 Dose: 2.5 mg Documented by: Furosemide (Lasix Injection -) 80 mg IVPUSH BID@0600,1400 [facility] Last Admin: 12/22/19 06:18 Dose: 80 mg Documented by: Heparin Sodium (Porcine) (Heparin -) 5,000 unit SQ BID [facility] Last Admin: 12/22/19 09:13 Dose: 5,000 unit Documented by: Hydralazine HCl (Apresoline -) 75 mg PO TID [facility] Last Admin: 12/22/19 13:02 Dose: Not Given Documented by: Hydralazine HCl (Apresoline Injection -) 10 mg IVPUSH Q6H PRN PRN Reason: HYPERTENSION Labetalol HCl 1,000 mg/ (Dextrose) 1,000 mls @ 120 mls/hr IV TITR [facility] Last Admin: 12/22/19 12:07 Dose: Not Given Documented by: Insulin Aspart (Novolog Vial Sliding Scale -) 1 vial SQ ACHS [facility]; Protocol Labetalol HCl (Normodyne -) 300 mg PO TID [facility] Last Admin: 12/22/19 13:03 Dose: Not Given Documented by: Levothyroxine Sodium (Synthroid -) 25 mcg PO DAILY@0700 [facility] Last Admin: 12/22/19 06:43 Dose: Not Given Documented by: Losartan Potassium (Cozaar -) 100 mg PO DAILY [facility] Last Admin: 12/22/19 09:13 Dose: 100 mg Documented by: Metoclopramide HCl (Reglan -) 10 mg PO TIDAC [facility] Last Admin: 12/22/19 11:06 Dose: Not Given Documented by: Mirtazapine (Remeron -) 30 mg PO [facility] Last Admin: 12/21/19 21:50 Dose: 30 mg Documented by: Multivitamins/Minerals/Vitamin C (Tab-A-Vit -) 1 tab PO DAILY [facility] Last Admin: 12/22/19 09:14 Dose: 1 tab Documented by: Mupirocin (Bactroban Ointment (For Decolonization) -) 1 applic NS BID [facility] Stop: 12/27/19 21:59 Nifedipine (Procardia Xl -) 90 mg PO DAILY [facility] Last Admin: 12/22/19 09:14 Dose: 90 mg Documented by: Pantoprazole Sodium (Protonix -) 20 mg PO DAILY [facility] Last Admin: 12/22/19 09:13 Dose: 20 mg Documented by: Polysaccharide Iron Complex (Niferex-150 -) 150 mg PO DAILY [facility] Last Admin: 12/22/19 09:13 Dose: 150 mg Documented by: Senna/Docusate Sodium (Pericolace -) 2 tablet PO [facility] Last Admin: 12/21/19 21:50 Dose: Not Given Documented by: Trazodone HCl (Desyrel -) 50 mg PO HS [facility] Last Admin: 12/21/19 21:50 Dose: 50 mg Documented by: - Objective Vital Signs: Vital Signs Temperature 98.5 F 12/22/19 11:32 Pulse Rate 67 12/22/19 13:00 Respiratory Rate 17 12/22/19 13:00 Blood Pressure 142/51 L 12/22/19 13:00 O2 Sat by Pulse Oximetry (%) 99 12/22/19 13:00 Constitutional: Yes: No Distress Neck: Yes: Supple Cardiovascular: Yes: Regular Rate and Rhythm, S1, S2 Respiratory: Yes: Rhonchi Gastrointestinal: Yes: Soft Edema: LLE: Trace, RLE: Trace Labs: CBC, BMP 12/21/19 05:36 12/22/19 06:07 Problem List - Problems (1) CHF (congestive heart failure) Code(s): I50.9 - HEART FAILURE, UNSPECIFIED Qualifiers: Heart failure type: unspecified Heart failure chronicity: acute on chronic Qualified Code(s): I50.9 - Heart failure, unspecified Assessment/Plan 79 year old female with a pmhx of htn, dm, hld, diastolic chf, h/o mod to large pericardial effusion which was small on echo 12/04/19, parkinson's, dementia, and cva who was recently admitted for uti/chf exacerbation who presents with sob. Family reports blood pressure has been running very high at home and sob, weakness, and lightheaded. No f/c/s. No n/v/d. Very elevated bnp Cr 1.5 K 5.5 CXR: b/l pleural effusions Echo 12/04/19: Limited study. Small pericardial effusion (<1cm) without cardiac tamponade. When compared with previous echo on 11/24/19, pericardial effusion is reduced. Echo 11/24/19: LVEF 50-55%. Normal RV. Mild LA dilatation. FCAV without . MAC. Minimal MR. Mild TR. Moderate to large pericardial effusion without cardiac tamponade. 1) Acute on chronic diastolic chf exacerbation likely in setting of uncontrolled htn. -Continue furosemide 40mg IV bid. Monitor I/O's, lytes, bun/cr, and daily weights Would change to PO torsemide 40mg daily this weekend -Needs bp control. Seems like issues with patient taking her pills. BP improved with meds. On losartan, nifedipine, labetalol, and hydralazine Room to go up if needed Will sign off
--- NOTE | 2019-12-22 14:30 | PN ---
Progress Note, Physician History of Present Illness: Pt seen and examined at bedside. She was transferred to ICU for HTN. She was not taking her meds and was pocketing and spitting them out. - Current Medication List Current Medications: Active Medications Acetaminophen (Tylenol -) 1,000 mg PO Q6H PRN PRN Reason: PAIN Last Admin: 12/21/19 01:50 Dose: 1,000 mg Documented by: Al Hydroxide/Mg Hydroxide (Mylanta Oral Suspension -) 30 ml PO Q6H PRN PRN Reason: DYSPEPSIA Aspirin (Asa -) 81 mg PO DAILY [facility] Last Admin: 12/22/19 09:14 Dose: 81 mg Documented by: Atorvastatin Calcium (Lipitor -) 20 mg PO HS [facility] Last Admin: 12/21/19 21:50 Dose: Not Given Documented by: Chlorhexidine Gluconate (Hibiclens For Decolonization -) 1 applic TP [facility] Dicyclomine HCl (Bentyl -) 10 mg PO Q6H PRN PRN Reason: MUSCLE SPASMS Dronabinol (Marinol -) 2.5 mg PO BID [facility] Last Admin: 12/22/19 09:14 Dose: 2.5 mg Documented by: Furosemide (Lasix Injection -) 80 mg IVPUSH BID@0600,1400 [facility] Last Admin: 12/22/19 06:18 Dose: 80 mg Documented by: Heparin Sodium (Porcine) (Heparin -) 5,000 unit SQ BID [facility] Last Admin: 12/22/19 09:13 Dose: 5,000 unit Documented by: Hydralazine HCl (Apresoline -) 75 mg PO TID [facility] Last Admin: 12/22/19 13:02 Dose: Not Given Documented by: Hydralazine HCl (Apresoline Injection -) 10 mg IVPUSH Q6H PRN PRN Reason: HYPERTENSION Labetalol HCl 1,000 mg/ (Dextrose) 1,000 mls @ 120 mls/hr IV TITR [facility] Last Admin: 12/22/19 12:07 Dose: Not Given Documented by: Insulin Aspart (Novolog Vial Sliding Scale -) 1 vial SQ ACHS [facility]; Protocol Labetalol HCl (Normodyne -) 300 mg PO TID [facility] Last Admin: 12/22/19 13:03 Dose: Not Given Documented by: Levothyroxine Sodium (Synthroid -) 25 mcg PO DAILY@0700 [facility] Last Admin: 12/22/19 06:43 Dose: Not Given Documented by: Losartan Potassium (Cozaar -) 100 mg PO DAILY [facility] Last Admin: 12/22/19 09:13 Dose: 100 mg Documented by: Metoclopramide HCl (Reglan -) 10 mg PO TIDAC [facility] Last Admin: 12/22/19 11:06 Dose: Not Given Documented by: Mirtazapine (Remeron -) 30 mg PO [facility] Last Admin: 12/21/19 21:50 Dose: 30 mg Documented by: Multivitamins/Minerals/Vitamin C (Tab-A-Vit -) 1 tab PO DAILY [facility] Last Admin: 12/22/19 09:14 Dose: 1 tab Documented by: Mupirocin (Bactroban Ointment (For Decolonization) -) 1 applic NS BID [facility] Stop: 12/27/19 21:59 Nifedipine (Procardia Xl -) 90 mg PO DAILY [facility] Last Admin: 12/22/19 09:14 Dose: 90 mg Documented by: Pantoprazole Sodium (Protonix -) 20 mg PO DAILY [facility] Last Admin: 12/22/19 09:13 Dose: 20 mg Documented by: Polysaccharide Iron Complex (Niferex-150 -) 150 mg PO DAILY [facility] Last Admin: 12/22/19 09:13 Dose: 150 mg Documented by: Senna/Docusate Sodium (Pericolace -) 2 tablet PO [facility] Last Admin: 12/21/19 21:50 Dose: Not Given Documented by: Trazodone HCl (Desyrel -) 50 mg PO [facility] Last Admin: 12/21/19 21:50 Dose: 50 mg Documented by: - Objective Vital Signs: Vital Signs Temperature 98.5 F 12/22/19 11:32 Pulse Rate 67 12/22/19 13:00 Respiratory Rate 17 12/22/19 13:00 Blood Pressure 142/51 L 12/22/19 13:00 O2 Sat by Pulse Oximetry (%) 99 12/22/19 13:00 Constitutional: Yes: Calm Eyes: Yes: Conjunctiva Clear HENT: Yes: Atraumatic Cardiovascular: Yes: S1, S2 Respiratory: Yes: CTA Bilaterally Gastrointestinal: Yes: Soft Genitourinary: Yes: WNL Musculoskeletal: Yes: WNL Edema: Yes Edema: LLE: Trace, RLE: Trace Integumentary: Yes: WNL Neurological: Yes: Confusion Psychiatric: Yes: Oriented Labs: CBC, BMP 12/21/19 05:36 12/22/19 06:07 Assessment/Plan Current Medications Generic Name Dose Route Start Last Admin Trade Name Freq PRN Reason Stop Dose Admin Acetaminophen 1,000 mg 12/19/19 16:12 12/21/19 01:50 Tylenol - PO 1,000 mg Q6H PRN Administration PAIN Al Hydroxide/Mg Hydroxide 30 ml 12/19/19 14:40 Mylanta Oral Suspension - PO Q6H PRN DYSPEPSIA Aspirin 81 mg 12/20/19 10:00 12/22/19 09:14 Asa - PO 81 mg DAILY [facility] Administration Atorvastatin Calcium 20 mg 12/19/19 22:00 12/21/19 21:50 Lipitor - PO Not Given HS [facility] Chlorhexidine Gluconate 1 applic 12/22/19 22:00 Hibiclens For Decolonization - TP HS [facility] Dicyclomine HCl 10 mg 12/19/19 16:09 Bentyl - PO Q6H PRN MUSCLE SPASMS Dronabinol 2.5 mg 12/19/19 22:00 12/22/19 09:14 Marinol - PO 2.5 mg BID [facility] Administration Furosemide 80 mg 12/20/19 08:45 12/22/19 06:18 Lasix Injection - IVPUSH 80 mg BID@0600,1400 [facility] Administration Heparin Sodium (Porcine) 5,000 unit 12/19/19 22:00 12/22/19 09:13 Heparin - SQ 5,000 unit BID [facility] Administration Hydralazine HCl 75 mg 12/21/19 22:00 12/22/19 13:02 Apresoline - PO Not Given TID [facility] Hydralazine HCl 10 mg 12/22/19 09:05 Apresoline Injection - IVPUSH Q6H PRN HYPERTENSION Labetalol HCl 1,000 mg/ 1,000 mls @ 120 mls/hr 12/22/19 09:15 12/22/19 12:07 Dextrose IV Not Given TITR [facility] 2 MG/MIN Insulin Aspart 1 vial 12/22/19 16:30 Novolog Vial Sliding Scale - SQ ACHS [facility] Protocol Labetalol HCl 300 mg 12/21/19 14:23 12/22/19 13:03 Normodyne - PO Not Given TID [facility] Levothyroxine Sodium 25 mcg 12/20/19 07:00 12/22/19 06:43 Synthroid - PO Not Given DAILY@0700 [facility] Losartan Potassium 100 mg 12/21/19 14:22 12/22/19 09:13 Cozaar - PO 100 mg DAILY [facility] Administration Metoclopramide HCl 10 mg 12/19/19 16:30 12/22/19 11:06 Reglan - PO Not Given TIDAC [facility] Mirtazapine 30 mg 12/19/19 22:00 12/21/19 21:50 Remeron - PO 30 mg HS [facility] Administration Multivitamins/Minerals/Vitamin C 1 tab 12/20/19 10:00 12/22/19 09:14 Tab-A-Vit - PO 1 tab DAILY [facility] Administration Mupirocin 1 applic 12/22/19 22:00 Bactroban Ointment (For Decolonization) - NS 12/27/19 21:59 BID [facility] Nifedipine 90 mg 12/20/19 10:00 12/22/19 09:14 Procardia Xl - PO 90 mg DAILY [facility] Administration Pantoprazole Sodium 20 mg 12/20/19 10:00 12/22/19 09:13 Protonix - PO 20 mg DAILY [facility] Administration Polysaccharide Iron Complex 150 mg 12/20/19 10:00 12/22/19 09:13 Niferex-150 - PO 150 mg DAILY [facility] Administration Senna/Docusate Sodium 2 tablet 12/19/19 22:00 12/21/19 21:50 Pericolace - PO Not Given HS [facility] Trazodone HCl 50 mg 12/19/19 22:00 12/21/19 21:50 Desyrel - PO 50 mg HS [facility] Administration Impression 1. JASPER 2. CKD 3. HLD 4. diverticulosis 5. HTN 6. DM 7. proteinuria 8. hypoalbuminemia 9. UTI 10. pleural effusion 11. chf 12. pericardial effusion without tamponade 13. fluid overload Impression - cardio input appreciated, agree with decreasing lasix to 40 - monitor renal function - spoke to pt she agree to take meds - try to give po meds and check bp - avoid nsaids - avoid nephrotoxins
[2019-12-22] MEDS ORDERED: POTASSIUM CHLORIDE ORAL LIQUID 20 MEQ/15 ML PO ONE (14:31)
[2019-12-22] MEDS ORDERED: KCL 10 MEQ IVPB 10 MEQ/100 ML INFUS.BAG IVPB SCH (14:45)
[2019-12-22] MEDS: INSULIN SLIDING SCALE (NOVOLOG) 1 VIAL SQ SCH ×2 (16:50→22:06)
[2019-12-22] MEDS: hydrALAZINE HCL 20 MG/ML VIAL IVPUSH PRN (18:47)
[2019-12-22] MEDS ORDERED: MEMANTINE HCL PO SCH (21:15)
[2019-12-22] MEDS ORDERED: DONEPEZIL HCL PO SCH (21:15)
[2019-12-22] MEDS ORDERED: [UNRECOGNIZED DRUG - OTHER] PO SCH (21:15)
[2019-12-22] MEDS: CHLORHEXIDINE GLUCONATE 4% CLEANSER FOR DECOLONIZATION TP SCH (21:22)
[2019-12-22] MEDS: traZODone HCL 50 MG TABLET (FP) PO SCH (21:24)
[2019-12-22] MEDS: ATORVASTATIN CA 20 MG TABLET (FP) PO SCH (21:24)
[2019-12-22] MEDS: MIRTAZAPINE 15 MG TABLET (FP) PO SCH (21:24)
[2019-12-22] MEDS: SENNOSIDES/DOCUSATE COMBO (SENNA PLUS) TABLET (UD) PO SCH (22:07)
[2019-12-22] MEDS: MUPIROCIN 2% TOPICAL OINTMENT FOR DECOLONIZATION NS SCH (22:07)
[2019-12-22] MEDS ORDERED: HALOPERIDOL LACTATE 5 MG/ML IM ONE (23:52)
[2019-12-23] MEDS ORDERED: LABETALOL HCL 5 MG/1 ML (100MG/20 ML VIAL) IVPUSH ONE ×2 (01:09→06:34)
[2019-12-23] MEDS: FUROSEMIDE 40 MG/4 ML INJECTABLE VIAL IVPUSH SCH ×2 (06:10→14:11)
[2019-12-23] MEDS: INSULIN SLIDING SCALE (NOVOLOG) 1 VIAL SQ SCH ×4 (06:28→22:11)
[2019-12-23] MEDS: hydrALAZINE HCL 25 MG TABLET (FP) PO SCH ×4 (06:38→21:38)
[2019-12-23] MEDS: METOCLOPRAMIDE HCL 10 MG TABLET (FP) PO SCH ×4 (06:38→17:30)
[2019-12-23] MEDS: LABETALOL HCL 100 MG TABLET (FP) PO SCH ×4 (06:38→21:39)
[2019-12-23] MEDS: LEVOTHYROXINE NA 25 MCG TABLET (FP) PO SCH (06:39)
[2019-12-23 07:01] LABS: HEMATOCRIT 28.5 % (32.4-45.2); HEMOGLOBIN 9.4 GM/dL (10.7-15.3); MCH 27.3 pg (25.7-33.7); MEAN CELL VOLUME 82.8 fl (80-96); MEAN PLT VOLUME 7.9 fl (7.5-11.1); PLATELET COUNT 284 K/MM3 (134-434); RBC 3.44 M/mm3 (3.60-5.2); RDW 18.4 % (11.6-15.6); WHITE BLOOD COUNT 6.3 K/mm3 (4.0-10.0)
[2019-12-23 07:29] LABS: ALBUMIN 2.5 g/dl (3.4-5.0); BLOOD UREA NITROGEN 15.1 mg/dL (7-18); CALCIUM 8.1 mg/dL (8.5-10.1); CREATININE 1.3 mg/dL (0.55-1.3); MAGNESIUM 1.4 mg/dL (1.8-2.4); PHOSPHOROUS 2.2 mg/dL (2.5-4.9); POTASSIUM 3.5 mmol/L (3.5-5.1)
[2019-12-23 07:30] LABS: BILIRUBIN,TOTAL 0.5 mg/dL (0.2-1); TOT PROT 5.4 g/dl (6.4-8.2)
[2019-12-23] MEDS: hydrALAZINE HCL 20 MG/ML VIAL IVPUSH PRN (08:08)
--- NOTE | 2019-12-23 08:14 | PN ---
Progress Note (short form) - Note Progress Note: PULM/CCM Patient seen and examined in the ICU. Patient cont to refuse her PO meds and remains hypertensive. Vital Signs Period Temp Pulse Resp BP Sys/East Pulse Ox Last 24 Hr 97.6 F-98.5 F 63-75 13-20 142-221/41-68 63-100 Intake & Output 12/20/19 12/21/19 12/22/19 12/23/19 23:59 23:59 23:59 23:59 Intake Total 440 50 520 Balance 440 50 520 Weight 61.235 kg 61.235 kg 62.341 kg Active Medications Acetaminophen (Tylenol -) 1,000 mg PO Q6H PRN PRN Reason: PAIN Last Admin: 12/21/19 01:50 Dose: 1,000 mg Documented by: Al Hydroxide/Mg Hydroxide (Mylanta Oral Suspension -) 30 ml PO Q6H PRN PRN Reason: DYSPEPSIA Aspirin (Asa -) 81 mg PO DAILY [facility] Last Admin: 12/23/19 09:38 Dose: 81 mg Documented by: Atorvastatin Calcium (Lipitor -) 20 mg PO HS [facility] Last Admin: 12/22/19 21:24 Dose: 20 mg Documented by: Chlorhexidine Gluconate (Hibiclens For Decolonization -) 1 applic TP [facility] Last Admin: 12/22/19 21:22 Dose: 1 applic Documented by: Dicyclomine HCl (Bentyl -) 10 mg PO Q6H PRN PRN Reason: MUSCLE SPASMS Dronabinol (Marinol -) 2.5 mg PO BID [facility] Last Admin: 12/23/19 10:53 Dose: Not Given Documented by: Furosemide (Lasix Injection -) 40 mg IVPUSH BID@0600,1400 [facility] Last Admin: 12/23/19 06:10 Dose: 40 mg Documented by: Heparin Sodium (Porcine) (Heparin -) 5,000 unit SQ BID [facility] Last Admin: 12/23/19 09:23 Dose: 5,000 unit Documented by: Hydralazine HCl (Apresoline -) 75 mg PO TID [facility] Last Admin: 12/23/19 08:15 Dose: 75 mg Documented by: Hydralazine HCl (Apresoline Injection -) 10 mg IVPUSH Q6H PRN PRN Reason: HYPERTENSION Last Admin: 12/23/19 08:08 Dose: 10 mg Documented by: Labetalol HCl 1,000 mg/ (Dextrose) 1,000 mls @ 120 mls/hr IV TITR [facility] Last Admin: 12/22/19 12:07 Dose: Not Given Documented by: Insulin Aspart (Novolog Vial Sliding Scale -) 1 vial SQ ACHS [facility]; Protocol Last Admin: 12/23/19 06:28 Dose: Not Given Documented by: Labetalol HCl (Normodyne -) 300 mg PO TID [facility] Last Admin: 12/23/19 08:12 Dose: 300 mg Documented by: Levothyroxine Sodium (Synthroid -) 25 mcg PO DAILY@0700 [facility] Last Admin: 12/23/19 06:39 Dose: Not Given Documented by: Losartan Potassium (Cozaar -) 100 mg PO DAILY [facility] Last Admin: 12/23/19 09:38 Dose: 100 mg Documented by: Metoclopramide HCl (Reglan -) 10 mg PO TIDAC [facility] Last Admin: 12/23/19 06:38 Dose: Not Given Documented by: Mirtazapine (Remeron -) 30 mg PO [facility] Last Admin: 12/22/19 21:24 Dose: 30 mg Documented by: Multivitamins/Minerals/Vitamin C (Tab-A-Vit -) 1 tab PO DAILY [facility] Last Admin: 12/23/19 10:53 Dose: Not Given Documented by: Mupirocin (Bactroban Ointment (For Decolonization) -) 1 applic NS BID [facility] Stop: 12/27/19 21:59 Last Admin: 12/23/19 09:22 Dose: 1 applic Documented by: Nifedipine (Procardia Xl -) 90 mg PO DAILY [facility] Last Admin: 12/23/19 09:38 Dose: 90 mg Documented by: Non-Formulary Medication (Memantine Hcl/Donepezil Hcl [Namzaric 14 Mg-10 Mg Cap shilpa]) 1 cap PO DAILY [facility] Pantoprazole Sodium (Protonix -) 20 mg PO DAILY [facility] Last Admin: 12/23/19 10:53 Dose: Not Given Documented by: Polysaccharide Iron Complex (Niferex-150 -) 150 mg PO DAILY [facility] Last Admin: 12/23/19 10:53 Dose: Not Given Documented by: Senna/Docusate Sodium (Pericolace -) 2 tablet PO [facility] Last Admin: 12/22/19 22:07 Dose: 2 tablet Documented by: Trazodone HCl (Desyrel -) 50 mg PO [facility] Last Admin: 12/22/19 21:24 Dose: 50 mg Documented by: Constitutional: NAD Eyes: WNL HENT: WNL Neck: Supple, trachea midline Cardiovascular: Regular Rate and Rhythm, S1, S2 Respiratory: Clear b/l Gastrointestinal: Normal Bowel Sounds, Soft Extremities: WNL Edema: No CBC, BMP 12/23/19 05:57 12/23/19 05:57 A/ Hypertensive Urgency Acute on Chronic Diastolic Heart Failure Pericardial Effusion HTN DM Hyperlipidemia CKD Hypothyroidism Parkinsons Dementia h/o CVA P/ - Off Labetalol drip - PO meds with encouragement - lasix IV BID - Cardiology recs appreciated - monitor urine output, creatinine - renal recs appreciated - O2 to keep SpO2 >90% - DVT prophylaxis - Will give dose of Sequel for severe anxiety - Consult psych - PPI for PUD ppx - Synthroid - BGM ACHS, Insulin coverage scale Dispo: full code, patient can be transferred to tele floor Maddison Alvares ACNP [id number]
[2019-12-23] MEDS ORDERED: QUEtiapine FUMARATE 25 MG TABLET PO ONE (08:45)
[2019-12-23] MEDS: MUPIROCIN 2% TOPICAL OINTMENT FOR DECOLONIZATION NS SCH ×2 (09:22→21:38)
[2019-12-23] MEDS: HEPARIN NA (PORCINE) 5,000 UNITS/ML 1ML VIAL SQ SCH ×2 (09:23→21:38)
[2019-12-23] MEDS: LOSARTAN POTASSIUM 50 MG TABLET PO SCH (09:38)
[2019-12-23] MEDS: ASPIRIN 81 MG CHEWABLE TABLETS PO SCH (09:38)
[2019-12-23] MEDS: NIFEdipine E.R. 90 MG TABLET PO SCH (09:38)
[2019-12-23] MEDS: IRON POLYSACCHARIDES 150 MG CAPSULE PO SCH (10:53)
[2019-12-23] MEDS: PANTOPRAZOLE 20 MG TABLET PO SCH (10:53)
[2019-12-23] MEDS: MULTIVITAMINS (DAILY MVI) TABLET (FP) PO SCH (10:53)
[2019-12-23] MEDS: DRONABINOL 2.5 MG CAPSULE PO SCH (10:53)
--- NOTE | 2019-12-23 11:05 | PN ---
Progress Note, Physician - Current Medication List Current Medications: Active Medications Acetaminophen (Tylenol -) 1,000 mg PO Q6H PRN PRN Reason: PAIN Last Admin: 12/21/19 01:50 Dose: 1,000 mg Documented by: Al Hydroxide/Mg Hydroxide (Mylanta Oral Suspension -) 30 ml PO Q6H PRN PRN Reason: DYSPEPSIA Aspirin (Asa -) 81 mg PO DAILY [facility] Last Admin: 12/23/19 09:38 Dose: 81 mg Documented by: Atorvastatin Calcium (Lipitor -) 20 mg PO HS [facility] Last Admin: 12/22/19 21:24 Dose: 20 mg Documented by: Chlorhexidine Gluconate (Hibiclens For Decolonization -) 1 applic TP [facility] Last Admin: 12/22/19 21:22 Dose: 1 applic Documented by: Dicyclomine HCl (Bentyl -) 10 mg PO Q6H PRN PRN Reason: MUSCLE SPASMS Dronabinol (Marinol -) 2.5 mg PO BID [facility] Last Admin: 12/23/19 10:53 Dose: Not Given Documented by: Furosemide (Lasix Injection -) 40 mg IVPUSH BID@0600,1400 [facility] Last Admin: 12/23/19 06:10 Dose: 40 mg Documented by: Heparin Sodium (Porcine) (Heparin -) 5,000 unit SQ BID [facility] Last Admin: 12/23/19 09:23 Dose: 5,000 unit Documented by: Hydralazine HCl (Apresoline -) 75 mg PO TID [facility] Last Admin: 12/23/19 08:15 Dose: 75 mg Documented by: Hydralazine HCl (Apresoline Injection -) 10 mg IVPUSH Q6H PRN PRN Reason: HYPERTENSION Last Admin: 12/23/19 08:08 Dose: 10 mg Documented by: Labetalol HCl 1,000 mg/ (Dextrose) 1,000 mls @ 120 mls/hr IV TITR [facility] Last Admin: 12/22/19 12:07 Dose: Not Given Documented by: Insulin Aspart (Novolog Vial Sliding Scale -) 1 vial SQ ACHS [facility]; Protocol Last Admin: 12/23/19 06:28 Dose: Not Given Documented by: Labetalol HCl (Normodyne -) 300 mg PO TID [facility] Last Admin: 12/23/19 08:12 Dose: 300 mg Documented by: Levothyroxine Sodium (Synthroid -) 25 mcg PO DAILY@0700 [facility] Last Admin: 12/23/19 06:39 Dose: Not Given Documented by: Losartan Potassium (Cozaar -) 100 mg PO DAILY [facility] Last Admin: 12/23/19 09:38 Dose: 100 mg Documented by: Metoclopramide HCl (Reglan -) 10 mg PO TIDAC [facility] Last Admin: 12/23/19 06:38 Dose: Not Given Documented by: Mirtazapine (Remeron -) 30 mg PO [facility] Last Admin: 12/22/19 21:24 Dose: 30 mg Documented by: Multivitamins/Minerals/Vitamin C (Tab-A-Vit -) 1 tab PO DAILY [facility] Last Admin: 12/23/19 10:53 Dose: Not Given Documented by: Mupirocin (Bactroban Ointment (For Decolonization) -) 1 applic NS BID [facility] Stop: 12/27/19 21:59 Last Admin: 12/23/19 09:22 Dose: 1 applic Documented by: Nifedipine (Procardia Xl -) 90 mg PO DAILY [facility] Last Admin: 12/23/19 09:38 Dose: 90 mg Documented by: Non-Formulary Medication (Memantine Hcl/Donepezil Hcl [Namzaric 14 Mg-10 Mg Cap shilpa]) 1 cap PO DAILY [facility] Pantoprazole Sodium (Protonix -) 20 mg PO DAILY [facility] Last Admin: 12/23/19 10:53 Dose: Not Given Documented by: Polysaccharide Iron Complex (Niferex-150 -) 150 mg PO DAILY [facility] Last Admin: 12/23/19 10:53 Dose: Not Given Documented by: Senna/Docusate Sodium (Pericolace -) 2 tablet PO [facility] Last Admin: 12/22/19 22:07 Dose: 2 tablet Documented by: Trazodone HCl (Desyrel -) 50 mg PO [facility] Last Admin: 12/22/19 21:24 Dose: 50 mg Documented by: - Objective Vital Signs: Vital Signs Temperature 97.6 F 12/23/19 09:00 Pulse Rate 64 12/23/19 09:00 Respiratory Rate 14 12/23/19 09:00 Blood Pressure 192/49 H 12/23/19 09:00 O2 Sat by Pulse Oximetry (%) 100 12/23/19 09:00 Cardiovascular: Yes: S1, S2 Respiratory: Yes: Regular, CTA Bilaterally Gastrointestinal: Yes: Normal Bowel Sounds, Soft Labs: CBC, BMP 12/23/19 05:57 12/23/19 05:57 Assessment/Plan - Problems (1) Acute on chronic diastolic (congestive) heart failure Assessment/Plan: -Cardiology consult -Tele monitoring -Furosemide 80 mg IVP BID -Continue nifedipine 90 mg po daily -labetalol drip -Continue losartan 25 mg po daily -Low sodium diet Problems reviewed: Yes Code(s): I50.33 - ACUTE ON CHRONIC DIASTOLIC (CONGESTIVE) HEART FAILURE (2) CKD (chronic kidney disease) Assessment/Plan: -Nephrology consult -Cr at baseline -monitor trend Problems reviewed: Yes Code(s): N18.9 - CHRONIC KIDNEY DISEASE, UNSPECIFIED Qualifiers: Chronic kidney disease stage: stage 5, not on chronic dialysis Qualified Code(s): N18.5 - Chronic kidney disease, stage 5 (3) HTN (hypertension) Assessment/Plan: -Since spitting out meds - will start iv labetolol Problems reviewed: Yes Code(s): I10 - ESSENTIAL (PRIMARY) HYPERTENSION (4) Weakness Assessment/Plan: -physical therapy -COVID 19 PCR Negative Problems reviewed: Yes Code(s): R53.1 - WEAKNESS (5) Change in MS Assessment/Plan: -CT head nad will discuss with family [facility]
[2019-12-23] MEDS: LABETALOL HCL INJECTION 1,000 MG in DEXTROSE 5%-WATER - 800 ML IV SCH (14:00)
--- NOTE | 2019-12-23 14:13 | PN ---
Mental Health Exam - Mental Status Exam Alert and Oriented to: Place (alert but orietated by 1 .), Person Cognitive Function: Impaired Patient Appearance: Well Groomed Mood: Withdrawn Affect: Constricted, Labile Patient Behavior: Combative (during perids of care including meds dministration. ), Uncooperative, Guarded, Suspicious, Resitive to Care Speech Pattern: Unclear, Rambling Voice Loudness: Mildly Soft/Quiet Thought Process: Circumstantial, Disoriented Thought Disorder: Not Present Hallucinations: None Suicidal Ideation: None Homicidal Ideation: None Insight/Judgement: Poor (not undrstanding need to take treatment. ) Sleep: Fair Appetite: Weight loss Muscle strength/Tone: Normal Gait/Station: Deferred Additional Comments: This is a 79 yo female met in J218, ICU in a negative pressure room. Spoke with Susan critical Care SENIOR CREDIT OFFICER on duty. Client is spitting ou t meds or not adherent with meds, per RN on duty. reports that she did not sleep last evening, screams and combative with her. She is severely hypertensive, without treatment. Client is in and out of sleep, smiles at grant writer, aware of her date of and place. Stat haldol 1mg with little effect last evening. Seroquel 25mg this a with better effect. Client is on [id number] po bid, that has high risk of increasing confusion, greater cardiac risk. Plan...Decrease marinol to 25mg at night. Stop trazadone 50mg at night. Start Seroquel 12.5mg po bid, may have a po prn seroquel 12.5 for increased anxiety. She responds better to male authority figure, when nursing care is required. Thanks for the consult.
--- NOTE | 2019-12-23 15:31 | PN ---
Progress Note, Physician History of Present Illness: Pt seen and examined at bedside. She remains in the ICU. No great change in status. - Current Medication List Current Medications: Active Medications Acetaminophen (Tylenol -) 1,000 mg PO Q6H PRN PRN Reason: PAIN Last Admin: 12/21/19 01:50 Dose: 1,000 mg Documented by: Al Hydroxide/Mg Hydroxide (Mylanta Oral Suspension -) 30 ml PO Q6H PRN PRN Reason: DYSPEPSIA Aspirin (Asa -) 81 mg PO DAILY [facility] Last Admin: 12/23/19 09:38 Dose: 81 mg Documented by: Atorvastatin Calcium (Lipitor -) 20 mg PO [facility] Last Admin: 12/22/19 21:24 Dose: 20 mg Documented by: Chlorhexidine Gluconate (Hibiclens For Decolonization -) 1 applic TP [facility] Last Admin: 12/22/19 21:22 Dose: 1 applic Documented by: Dicyclomine HCl (Bentyl -) 10 mg PO Q6H PRN PRN Reason: MUSCLE SPASMS Dronabinol (Marinol -) 2.5 mg PO [facility] Furosemide (Lasix Injection -) 40 mg IVPUSH BID@0600,1400 [facility] Last Admin: 12/23/19 14:11 Dose: 40 mg Documented by: Heparin Sodium (Porcine) (Heparin -) 5,000 unit SQ BID [facility] Last Admin: 12/23/19 09:23 Dose: 5,000 unit Documented by: Hydralazine HCl (Apresoline -) 75 mg PO TID [facility] Last Admin: 12/23/19 14:11 Dose: 75 mg Documented by: Hydralazine HCl (Apresoline Injection -) 10 mg IVPUSH Q6H PRN PRN Reason: HYPERTENSION Last Admin: 12/23/19 08:08 Dose: 10 mg Documented by: Labetalol HCl 1,000 mg/ (Dextrose) 1,000 mls @ 120 mls/hr IV TITR [facility] Last Admin: 12/23/19 14:00 Dose: Not Given Documented by: Insulin Aspart (Novolog Vial Sliding Scale -) 1 vial SQ ACHS [facility]; Protocol Last Admin: 12/23/19 14:10 Dose: Not Given Documented by: Labetalol HCl (Normodyne -) 300 mg PO TID [facility] Last Admin: 10/03/20 14:11 Dose: 300 mg Documented by: Levothyroxine Sodium (Synthroid -) 25 mcg PO DAILY@0700 [facility] Last Admin: 12/23/19 06:39 Dose: Not Given Documented by: Losartan Potassium (Cozaar -) 100 mg PO DAILY [facility] Last Admin: 12/23/19 09:38 Dose: 100 mg Documented by: Metoclopramide HCl (Reglan -) 10 mg PO TIDAC [facility] Last Admin: 12/23/19 14:10 Dose: Not Given Documented by: Mirtazapine (Remeron -) 30 mg PO HS [facility] Last Admin: 12/22/19 21:24 Dose: 30 mg Documented by: Multivitamins/Minerals/Vitamin C (Tab-A-Vit -) 1 tab PO DAILY [facility] Last Admin: 12/23/19 10:53 Dose: Not Given Documented by: Mupirocin (Bactroban Ointment (For Decolonization) -) 1 applic NS BID [facility] Stop: 12/27/19 21:59 Last Admin: 12/23/19 09:22 Dose: 1 applic Documented by: Nifedipine (Procardia Xl -) 90 mg PO DAILY [facility] Last Admin: 12/23/19 09:38 Dose: 90 mg Documented by: Non-Formulary Medication (Memantine Hcl/Donepezil Hcl [Namzaric 14 Mg-10 Mg Capsule]) 1 cap PO DAILY [facility] Pantoprazole Sodium (Protonix -) 20 mg PO DAILY [facility] Last Admin: 12/23/19 10:53 Dose: Not Given Documented by: Polysaccharide Iron Complex (Niferex-150 -) 150 mg PO DAILY [facility] Last Admin: 12/23/19 10:53 Dose: Not Given Documented by: Quetiapine Fumarate (Seroquel -) 12.5 mg PO BID [facility] Senna/Docusate Sodium (Pericolace -) 2 tablet PO [facility] Last Admin: 12/22/19 22:07 Dose: 2 tablet Documented by: - Objective Vital Signs: Vital Signs Temperature 97.6 F 12/23/19 09:00 Pulse Rate 64 12/23/19 09:00 Respiratory Rate 14 12/23/19 09:00 Blood Pressure 192/49 H 12/23/19 09:00 O2 Sat by Pulse Oximetry (%) 100 12/23/19 09:00 Constitutional: Yes: Calm Eyes: Yes: Conjunctiva Clear HENT: Yes: Atraumatic Neck: Yes: Supple Cardiovascular: Yes: S1, S2 Respiratory: Yes: CTA Bilaterally Gastrointestinal: Yes: Soft Genitourinary: Yes: WNL Musculoskeletal: Yes: WNL Edema: Yes Edema: LLE: Trace, RLE: Trace Neurological: Yes: Confusion Labs: CBC, BMP 12/23/19 05:57 12/23/19 05:57 Assessment/Plan Current Medications Generic Name Dose Route Start Last Admin Trade Name Freq PRN Reason Stop Dose Admin Acetaminophen 1,000 mg 12/19/19 16:12 12/21/19 01:50 Tylenol - PO 1,000 mg Q6H PRN Administration PAIN Al Hydroxide/Mg Hydroxide 30 ml 12/19/19 14:40 Mylanta Oral Suspension - PO Q6H PRN DYSPEPSIA Aspirin 81 mg 12/20/19 10:00 12/23/19 09:38 Asa - PO 81 mg DAILY [facility] Administration Atorvastatin Calcium 20 mg 12/19/19 22:00 12/22/19 21:24 Lipitor - PO 20 mg HS [facility] Administration Chlorhexidine Gluconate 1 applic 12/22/19 22:00 12/22/19 21:22 Hibiclens For Decolonization - TP 1 applic HS [facility] Administration Dicyclomine HCl 10 mg 12/19/19 16:09 Bentyl - PO Q6H PRN MUSCLE SPASMS Dronabinol 2.5 mg 12/23/19 22:00 Marinol - PO HS [facility] Furosemide 40 mg 12/22/19 14:30 12/23/19 14:11 Lasix Injection - IVPUSH 40 mg BID@0600,1400 [facility] Administration Heparin Sodium (Porcine) 5,000 unit 12/19/19 22:00 12/23/19 09:23 Heparin - SQ 5,000 unit BID [facility] Administration Hydralazine HCl 75 mg 12/21/19 22:00 12/23/19 14:11 Apresoline - PO 75 mg TID [facility] Administration Hydralazine HCl 10 mg 12/22/19 09:05 12/23/19 08:08 Apresoline Injection - IVPUSH 10 mg Q6H PRN Administration HYPERTENSION Labetalol HCl 1,000 mg/ 1,000 mls @ 120 mls/hr 12/22/19 09:15 12/23/19 14:00 Dextrose IV Not Given TITR [facility] 2 MG/MIN Insulin Aspart 1 vial 12/22/19 16:30 12/23/19 14:10 Novolog Vial Sliding Scale - SQ Not Given ACHS [facility] Protocol Labetalol HCl 300 mg 12/21/19 14:23 12/23/19 14:11 Normodyne - PO 300 mg TID [facility] Administration Levothyroxine Sodium 25 mcg 12/20/19 07:00 12/23/19 06:39 Synthroid - PO Not Given DAILY@0700 [facility] Losartan Potassium 100 mg 12/21/19 14:22 12/23/19 09:38 Cozaar - PO 100 mg DAILY [facility] Administration Metoclopramide HCl 10 mg 12/19/19 16:30 12/23/19 14:10 Reglan - PO Not Given TIDAC [facility] Mirtazapine 30 mg 12/19/19 22:00 12/22/19 21:24 Remeron - PO 30 mg HS [facility] Administration Multivitamins/Minerals/Vitamin C 1 tab 12/20/19 10:00 12/23/19 10:53 Tab-A-Vit - PO Not Given DAILY [facility] Mupirocin 1 applic 12/22/19 22:00 12/23/19 09:22 Bactroban Ointment (For Decolonization) - NS 12/27/19 21:59 1 applic BID [facility] Administration Nifedipine 90 mg 12/20/19 10:00 12/23/19 09:38 Procardia Xl - PO 90 mg DAILY [facility] Administration Non-Formulary Medication 1 cap 12/22/19 21:15 Memantine Hcl/Donepezil Hcl [Namzaric 14 Mg-10 Mg Capsule] PO DAILY [facility] Pantoprazole Sodium 20 mg 12/20/19 10:00 12/23/19 10:53 Protonix - PO Not Given DAILY [facility] Polysaccharide Iron Complex 150 mg 12/20/19 10:00 12/23/19 10:53 Niferex-150 - PO Not Given DAILY [facility] Quetiapine Fumarate 12.5 mg 12/23/19 22:00 Seroquel - PO BID [facility] Senna/Docusate Sodium 2 tablet 12/19/19 22:00 12/22/19 22:07 Pericolace - PO 2 tablet HS [facility] Administration Impression 1. JASPER 2. CKD 3. HLD 4. diverticulosis 5. HTN 6. DM 7. proteinuria 8. hypoalbuminemia 9. UTI 10. pleural effusion 11. chf 12. pericardial effusion without tamponade 13. fluid overload Impression - renal function stable - cont bp meds - repeat bp after am meds was 166/42 - agree with ICU monitoring - nurse to make sure she takes her po meds, may need IV if she spits them out - avoid nsaids - avoid nephrotoxins
--- NOTE | 2019-12-23 18:15 | PN ---
Progress Note (short form) - Note Progress Note: Discussed with ICU care team for wish to transfer out of MICU. Patient seen by Dr. Espana today and originally admitted for hypertensive urgency 2/2 noncompliance with taking her medication. Patient is normally controlled when taking her extensive antihypertensive regimen, but requires frequent encouragement to take. Stable for transfer to medical floor at this juncture. Continue to encourage PO medication intake. May benefit from for disposition and long-term care. Care to resume with Dr. Espana in the AM.
[2019-12-23] MEDS ORDERED: PT OWN MED DRAWER 7, Y5N ONE ×2 (20:23→20:46)
[2019-12-23] MEDS: QUEtiapine FUMARATE 25 MG TABLET PO SCH (21:39)
[2019-12-23] MEDS: CHLORHEXIDINE GLUCONATE 4% CLEANSER FOR DECOLONIZATION TP SCH (21:39)
[2019-12-23] MEDS: MIRTAZAPINE 15 MG TABLET (FP) PO SCH (21:40)
[2019-12-23] MEDS: ATORVASTATIN CA 20 MG TABLET (FP) PO SCH (21:41)
[2019-12-23] MEDS: SENNOSIDES/DOCUSATE COMBO (SENNA PLUS) TABLET (UD) PO SCH (21:41)
[2019-12-23] MEDS ORDERED: DRONABINOL 2.5 MG CAPSULE PO SCH (22:00)
[2019-12-24] MEDS: LABETALOL HCL 100 MG TABLET (FP) PO SCH ×4 (06:13→23:24)
[2019-12-24] MEDS: INSULIN SLIDING SCALE (NOVOLOG) 1 VIAL SQ SCH ×3 (06:14→16:46)
[2019-12-24] MEDS: FUROSEMIDE 40 MG/4 ML INJECTABLE VIAL IVPUSH SCH ×2 (06:14→13:29)
[2019-12-24] MEDS: METOCLOPRAMIDE HCL 10 MG TABLET (FP) PO SCH ×4 (06:39→16:45)
[2019-12-24] MEDS: hydrALAZINE HCL 25 MG TABLET (FP) PO SCH ×4 (06:41→23:23)
[2019-12-24] MEDS: LEVOTHYROXINE NA 25 MCG TABLET (FP) PO SCH (06:42)
[2019-12-24 06:51] LABS: EOS % 10.8 % (0-4.5); HEMATOCRIT 28.2 % (32.4-45.2); HEMOGLOBIN 9.1 GM/dL (10.7-15.3); LYMPH % 9.7 % (8-40); MCH 27.2 pg (25.7-33.7); MCHC 32.3 g/dl (32.0-36.0); MEAN PLT VOLUME 7.6 fl (7.5-11.1); MONO % 11.9 % (3.8-10.2); NEUT % 66.6 % (42.8-82.8); PLATELET COUNT 298 K/MM3 (134-434); RBC 3.35 M/mm3 (3.60-5.2); RDW 18.5 % (11.6-15.6); WHITE BLOOD COUNT 6.8 K/mm3 (4.0-10.0)
[2019-12-24 06:58] LABS: CALCIUM 7.8 mg/dL (8.5-10.1); CREATININE 1.7 mg/dL (0.55-1.3); MAGNESIUM 1.7 mg/dL (1.8-2.4); PHOSPHOROUS 2.1 mg/dL (2.5-4.9); POTASSIUM 3.5 mmol/L (3.5-5.1)
[2019-12-24] MEDS ORDERED: MAGNESIUM SULF 50% (8.12 MEQ/2 ML-1 GM VIAL) IVPB ONE (08:39)
--- NOTE | 2019-12-24 10:01 | PN ---
Progress Note, Physician - Current Medication List Current Medications: Active Medications Acetaminophen (Tylenol -) 1,000 mg PO Q6H PRN PRN Reason: PAIN Last Admin: 12/21/19 01:50 Dose: 1,000 mg Documented by: Al Hydroxide/Mg Hydroxide (Mylanta Oral Suspension -) 30 ml PO Q6H PRN PRN Reason: DYSPEPSIA Aspirin (Asa -) 81 mg PO DAILY [facility] Last Admin: 12/23/19 09:38 Dose: 81 mg Documented by: Atorvastatin Calcium (Lipitor -) 20 mg PO [facility] Last Admin: 12/23/19 21:41 Dose: 20 mg Documented by: Chlorhexidine Gluconate (Hibiclens For Decolonization -) 1 applic TP [facility] Last Admin: 12/23/19 21:39 Dose: 1 applic Documented by: Dicyclomine HCl (Bentyl -) 10 mg PO Q6H PRN PRN Reason: MUSCLE SPASMS Dronabinol (Marinol -) 2.5 mg PO [facility] Last Admin: 12/23/19 21:40 Dose: Not Given Documented by: Furosemide (Lasix Injection -) 40 mg IVPUSH BID@0600,1400 [facility] Last Admin: 12/24/19 06:14 Dose: 40 mg Documented by: Heparin Sodium (Porcine) (Heparin -) 5,000 unit SQ BID [facility] Last Admin: 12/23/19 21:38 Dose: 5,000 unit Documented by: Hydralazine HCl (Apresoline -) 75 mg PO TID [facility] Last Admin: 12/24/19 06:41 Dose: 75 mg Documented by: Hydralazine HCl (Apresoline Injection -) 10 mg IVPUSH Q6H PRN PRN Reason: HYPERTENSION Last Admin: 12/23/19 08:08 Dose: 10 mg Documented by: Labetalol HCl 1,000 mg/ (Dextrose) 1,000 mls @ 120 mls/hr IV TITR [facility] Last Admin: 12/23/19 14:00 Dose: Not Given Documented by: Insulin Aspart (Novolog Vial Sliding Scale -) 1 vial SQ ACHS [facility]; Protocol Last Admin: 12/24/19 06:14 Dose: Not Given Documented by: Labetalol HCl (Normodyne -) 300 mg PO TID [facility] Last Admin: 12/24/19 06:13 Dose: 300 mg Documented by: Levothyroxine Sodium (Synthroid -) 25 mcg PO DAILY@0700 [facility] Last Admin: 12/24/19 06:42 Dose: 25 mcg Documented by: Losartan Potassium (Cozaar -) 100 mg PO DAILY [facility] Last Admin: 12/23/19 09:38 Dose: 100 mg Documented by: Magnesium Sulfate (Magnesium Sulfate) 1 gm IVPB ONCE ONE Stop: 12/24/19 08:40 Metoclopramide HCl (Reglan -) 10 mg PO TIDAC [facility] Last Admin: 12/24/19 06:39 Dose: Not Given Documented by: Mirtazapine (Remeron -) 30 mg PO HS [facility] Last Admin: 12/23/19 21:40 Dose: 30 mg Documented by: Multivitamins/Minerals/Vitamin C (Tab-A-Vit -) 1 tab PO DAILY [facility] Last Admin: 12/23/19 10:53 Dose: Not Given Documented by: Mupirocin (Bactroban Ointment (For Decolonization) -) 1 applic NS BID [facility] Stop: 12/27/19 21:59 Last Admin: 12/23/19 21:38 Dose: 1 applic Documented by: Nifedipine (Procardia Xl -) 90 mg PO DAILY [facility] Last Admin: 12/23/19 09:38 Dose: 90 mg Documented by: Non-Formulary Medication (Memantine Hcl/Donepezil Hcl [Namzaric 14 Mg-10 Mg Capsule]) 1 cap PO DAILY [facility] Pantoprazole Sodium (Protonix -) 20 mg PO DAILY [facility] Last Admin: 12/23/19 10:53 Dose: Not Given Documented by: Polysaccharide Iron Complex (Niferex-150 -) 150 mg PO DAILY [facility] Last Admin: 12/23/19 10:53 Dose: Not Given Documented by: Quetiapine Fumarate (Seroquel -) 12.5 mg PO BID [facility] Last Admin: 12/23/19 21:39 Dose: 12.5 mg Documented by: Senna/Docusate Sodium (Pericolace -) 2 tablet PO [facility] Last Admin: 12/23/19 21:41 Dose: Not Given Documented by: - Objective Vital Signs: Vital Signs Temperature 98.3 F 12/24/19 05:56 Pulse Rate 65 12/24/19 08:00 Respiratory Rate 12 12/24/19 08:29 Blood Pressure 172/48 H 12/24/19 08:00 O2 Sat by Pulse Oximetry (%) 100 12/24/19 08:51 Cardiovascular: Yes: S1, S2 Respiratory: Yes: Regular, CTA Bilaterally Gastrointestinal: Yes: Normal Bowel Sounds, Soft Labs: CBC, BMP 12/24/19 05:55 12/24/19 05:55 Assessment/Plan - Problems (1) Acute on chronic diastolic (congestive) heart failure Assessment/Plan: -Cardiology consult -Tele monitoring -Furosemide 80 mg IVP BID -Continue nifedipine 90 mg po daily -labetalol drip -Continue losartan 25 mg po daily -Low sodium diet Problems reviewed: Yes Code(s): I50.33 - ACUTE ON CHRONIC DIASTOLIC (CONGESTIVE) HEART FAILURE (2) CKD (chronic kidney disease) Assessment/Plan: -Nephrology consult -Cr at baseline -monitor trend Problems reviewed: Yes Code(s): N18.9 - CHRONIC KIDNEY DISEASE, UNSPECIFIED Qualifiers: Chronic kidney disease stage: stage 5, not on chronic dialysis Qualified Code(s): N18.5 - Chronic kidney disease, stage 5 (3) HTN (hypertension) Assessment/Plan: -Since spitting out meds - will start iv labetolol Problems reviewed: Yes Code(s): I10 - ESSENTIAL (PRIMARY) HYPERTENSION (4) Weakness Assessment/Plan: -physical therapy -COVID 19 PCR Negative Problems reviewed: Yes Code(s): R53.1 - WEAKNESS (5) Change in MS Assessment/Plan: -CT head nad will discuss with family [facility]
[2019-12-24] MEDS: LABETALOL HCL INJECTION 1,000 MG in DEXTROSE 5%-WATER - 800 ML IV SCH (10:14)
[2019-12-24] MEDS: ASPIRIN 81 MG CHEWABLE TABLETS PO SCH ×2 (10:15→11:42)
[2019-12-24] MEDS: HEPARIN NA (PORCINE) 5,000 UNITS/ML 1ML VIAL SQ SCH ×2 (10:16→23:24)
[2019-12-24] MEDS: QUEtiapine FUMARATE 25 MG TABLET PO SCH ×3 (10:16→23:24)
[2019-12-24] MEDS: IRON POLYSACCHARIDES 150 MG CAPSULE PO SCH ×2 (10:16→11:42)
[2019-12-24] MEDS: NIFEdipine E.R. 90 MG TABLET PO SCH ×3 (10:16→15:05)
[2019-12-24] MEDS: MULTIVITAMINS (DAILY MVI) TABLET (FP) PO SCH ×2 (10:17→11:44)
[2019-12-24] MEDS: PANTOPRAZOLE 20 MG TABLET PO SCH ×2 (10:17→11:42)
[2019-12-24] MEDS ORDERED: DRONABINOL 2.5 MG CAPSULE PO SCH (10:40)
[2019-12-24] MEDS: LOSARTAN POTASSIUM 50 MG TABLET PO SCH ×2 (11:38→15:05)
[2019-12-24] MEDS: hydrALAZINE HCL 20 MG/ML VIAL IVPUSH PRN (11:40)
[2019-12-24] MEDS: MUPIROCIN 2% TOPICAL OINTMENT FOR DECOLONIZATION NS SCH ×2 (11:42→23:24)
--- NOTE | 2019-12-24 15:13 | PN ---
Progress Note, Physician History of Present Illness: Pt seen and examined at bedside. She is not taking her meds. - Current Medication List Current Medications: Active Medications Acetaminophen (Tylenol -) 1,000 mg PO Q6H PRN PRN Reason: PAIN Last Admin: 12/21/19 01:50 Dose: 1,000 mg Documented by: Al Hydroxide/Mg Hydroxide (Mylanta Oral Suspension -) 30 ml PO Q6H PRN PRN Reason: DYSPEPSIA Aspirin (Asa -) 81 mg PO DAILY [facility] Last Admin: 12/24/19 11:42 Dose: Not Given Documented by: Atorvastatin Calcium (Lipitor -) 20 mg PO [facility] Last Admin: 12/23/19 21:41 Dose: 20 mg Documented by: Chlorhexidine Gluconate (Hibiclens For Decolonization -) 1 applic TP [facility] Last Admin: 12/23/19 21:39 Dose: 1 applic Documented by: Dicyclomine HCl (Bentyl -) 10 mg PO Q6H PRN PRN Reason: MUSCLE SPASMS Dronabinol (Marinol -) 2.5 mg PO 2000 [facility] Furosemide (Lasix Injection -) 40 mg IVPUSH BID@0600,1400 [facility] Last Admin: 12/24/19 13:29 Dose: 40 mg Documented by: Heparin Sodium (Porcine) (Heparin -) 5,000 unit SQ BID [facility] Last Admin: 12/24/19 10:16 Dose: 5,000 unit Documented by: Hydralazine HCl (Apresoline -) 75 mg PO TID [facility] Last Admin: 12/24/19 13:32 Dose: Not Given Documented by: Hydralazine HCl (Apresoline Injection -) 20 mg IVPUSH Q6H PRN PRN Reason: HYPERTENSION Labetalol HCl 1,000 mg/ (Dextrose) 1,000 mls @ 120 mls/hr IV TITR [facility] Last Admin: 12/24/19 10:14 Dose: Not Given Documented by: Insulin Aspart (Novolog Vial Sliding Scale -) 1 vial SQ ACHS [facility]; Protocol Last Admin: 12/24/19 12:02 Dose: Not Given Documented by: Labetalol HCl (Normodyne -) 300 mg PO TID [facility] Last Admin: 12/24/19 13:43 Dose: Not Given Documented by: Levothyroxine Sodium (Synthroid -) 25 mcg PO DAILY@0700 [facility] Last Admin: 12/24/19 06:42 Dose: 25 mcg Documented by: Losartan Potassium (Cozaar -) 100 mg PO DAILY [facility] Last Admin: 12/24/19 11:38 Dose: Not Given Documented by: Metoclopramide HCl (Reglan -) 10 mg PO TIDAC [facility] Last Admin: 12/24/19 11:44 Dose: Not Given Documented by: Mirtazapine (Remeron -) 30 mg PO [facility] Last Admin: 12/23/19 21:40 Dose: 30 mg Documented by: Multivitamins/Minerals/Vitamin C (Tab-A-Vit -) 1 tab PO DAILY [facility] Last Admin: 12/24/19 11:44 Dose: Not Given Documented by: Mupirocin (Bactroban Ointment (For Decolonization) -) 1 applic NS BID [facility] Stop: 12/27/19 21:59 Last Admin: 12/24/19 11:42 Dose: Not Given Documented by: Nifedipine (Procardia Xl -) 90 mg PO DAILY [facility] Last Admin: 12/24/19 11:42 Dose: Not Given Documented by: Non-Formulary Medication (Memantine Hcl/Donepezil Hcl [Namzaric 14 Mg-10 Mg C apsule]) 1 cap PO DAILY [facility] Pantoprazole Sodium (Protonix -) 20 mg PO DAILY [facility] Last Admin: 12/24/19 11:42 Dose: Not Given Documented by: Polysaccharide Iron Complex (Niferex-150 -) 150 mg PO DAILY [facility] Last Admin: 12/24/19 11:42 Dose: Not Given Documented by: Quetiapine Fumarate (Seroquel -) 12.5 mg PO BID [facility] Last Admin: 12/24/19 11:44 Dose: Not Given Documented by: Senna/Docusate Sodium (Pericolace -) 2 tablet PO [facility] Last Admin: 12/23/19 21:41 Dose: Not Given Documented by: - Objective Vital Signs: Vital Signs Temperature 98.3 F 12/24/19 05:56 Pulse Rate 65 12/24/19 08:00 Respiratory Rate 12 12/24/19 08:29 Blood Pressure 172/48 H 12/24/19 08:00 O2 Sat by Pulse Oximetry (%) 100 12/24/19 08:51 Constitutional: Yes: Calm Eyes: Yes: Conjunctiva Clear HENT: Yes: Atraumatic Neck: Yes: Supple Cardiovascular: Yes: S1, S2 Respiratory: Yes: CTA Bilaterally Gastrointestinal: Yes: Soft Genitourinary: Yes: Incontinence Edema: Yes Edema: LLE: Trace, RLE: Trace Neurological: Yes: Confusion Psychiatric: Yes: Agitated Labs: CBC, BMP 12/24/19 05:55 12/24/19 05:55 Assessment/Plan Current Medications Generic Name Dose Route Start Last Admin Trade Name Gabriele PRN Reason Stop Dose Admin Acetaminophen 1,000 mg 12/19/19 16:12 12/21/19 01:50 Tylenol - PO 1,000 mg Q6H PRN Administration PAIN Al Hydroxide/Mg Hydroxide 30 ml 12/19/19 14:40 Mylanta Oral Suspension - PO Q6H PRN DYSPEPSIA Aspirin 81 mg 12/20/19 10:00 12/24/19 11:42 Asa - PO Not Given DAILY [facility] Atorvastatin Calcium 20 mg 12/19/19 22:00 12/23/19 21:41 Lipitor - PO 20 mg HS [facility] Administration Chlorhexidine Gluconate 1 applic 12/22/19 22:00 12/23/19 21:39 Hibiclens For Decolonization - TP 1 applic HS [facility] Administration Dicyclomine HCl 10 mg 12/19/19 16:09 Bentyl - PO Q6H PRN MUSCLE SPASMS Dronabinol 2.5 mg 12/24/19 20:00 Marinol - PO 2000 [facility] Furosemide 40 mg 12/22/19 14:30 12/24/19 13:29 Lasix Injection - IVPUSH 40 mg BID@0600,1400 [facility] Administration Heparin Sodium (Porcine) 5,000 unit 12/19/19 22:00 12/24/19 10:16 Heparin - SQ 5,000 unit BID [facility] Administration Hydralazine HCl 75 mg 12/21/19 22:00 12/24/19 13:32 Apresoline - PO Not Given TID [facility] Hydralazine HCl 20 mg 12/24/19 12:18 Apresoline Injection - IVPUSH Q6H PRN HYPERTENSION Labetalol HCl 1,000 mg/ 1,000 mls @ 120 mls/hr 12/22/19 09:15 12/24/19 10:14 Dextrose IV Not Given TITR [facility] 2 MG/MIN Insulin Aspart 1 vial 12/22/19 16:30 12/24/19 12:02 Novolog Vial Sliding Scale - SQ Not Given ACHS [facility] Protocol Labetalol HCl 300 mg 12/21/19 14:23 12/24/19 13:43 Normodyne - PO Not Given TID [facility] Levothyroxine Sodium 25 mcg 12/20/19 07:00 12/24/19 06:42 Synthroid - PO 25 mcg DAILY@0700 [facility] Administration Losartan Potassium 100 mg 12/21/19 14:22 12/24/19 11:38 Cozaar - PO Not Given DAILY [facility] Metoclopramide HCl 10 mg 12/19/19 16:30 12/24/19 11:44 Reglan - PO Not Given TIDAC [facility] Mirtazapine 30 mg 12/19/19 22:00 12/23/19 21:40 Remeron - PO 30 mg HS [facility] Administration Multivitamins/Minerals/Vitamin C 1 tab 12/20/19 10:00 12/24/19 11:44 Tab-A-Vit - PO Not Given DAILY [facility] Mupirocin 1 applic 12/22/19 22:00 12/24/19 11:42 Bactroban Ointment (For Decolonization) - NS 12/27/19 21:59 Not Given BID [facility] Nifedipine 90 mg 12/20/19 10:00 12/24/19 11:42 Procardia Xl - PO Not Given DAILY [facility] Non-Formulary Medication 1 cap 12/22/19 21:15 Memantine Hcl/Donepezil Hcl [Namzaric 14 Mg-10 Mg Capsule] PO DAILY [facility] Pantoprazole Sodium 20 mg 12/20/19 10:00 12/24/19 11:42 Protonix - PO Not Given DAILY [facility] Polysaccharide Iron Complex 150 mg 12/20/19 10:00 12/24/19 11:42 Niferex-150 - PO Not Given DAILY [facility] Quetiapine Fumarate 12.5 mg 12/23/19 22:00 12/24/19 11:44 Seroquel - PO Not Given BID [facility] Senna/Docusate Sodium 2 tablet 12/19/19 22:00 12/23/19 21:41 Pericolace - PO Not Given HS [facility] Impression 1. JASPER 2. CKD 3. HLD 4. diverticulosis 5. HTN 6. DM 7. proteinuria 8. hypoalbuminemia 9. UTI 10. pleural effusion 11. chf 12. pericardial effusion without tamponade 13. fluid overload Impression - pt not taking and spitting out meds - discussed with ICU team, she is getting IV bp meds - discuss GOC with family - cont to monitor bp - avoid nsaids - avoid nephrotoxins
[2019-12-24] MEDS: DRONABINOL 2.5 MG CAPSULE PO SCH (17:19)
[2019-12-24] MEDS ORDERED: oxyCODONE HCL 5 MG TABLET ONE (18:42)
[2019-12-24] MEDS ORDERED: oxyCODONE HCL 5 MG TABLET PO PRN (18:50)
[2019-12-24] MEDS: ACETAMINOPHEN 325 MG TABLET (FP) PO PRN (19:00)
[2019-12-24] MEDS: SENNOSIDES/DOCUSATE COMBO (SENNA PLUS) TABLET (UD) PO SCH (23:24)
[2019-12-24] MEDS: MIRTAZAPINE 15 MG TABLET (FP) PO SCH (23:24)
[2019-12-24] MEDS: ATORVASTATIN CA 20 MG TABLET (FP) PO SCH (23:24)
[2019-12-24] MEDS: CHLORHEXIDINE GLUCONATE 4% CLEANSER FOR DECOLONIZATION TP SCH (23:24)
[2019-12-25] MEDS: INSULIN SLIDING SCALE (NOVOLOG) 1 VIAL SQ SCH ×5 (01:09→21:52)
[2019-12-25] MEDS: hydrALAZINE HCL 20 MG/ML VIAL IVPUSH PRN ×3 (03:12→18:20)
[2019-12-25] MEDS: LABETALOL HCL 100 MG TABLET (FP) PO SCH ×3 (05:15→21:34)
[2019-12-25] MEDS: hydrALAZINE HCL 25 MG TABLET (FP) PO SCH ×3 (05:15→21:35)
[2019-12-25] MEDS: FUROSEMIDE 40 MG/4 ML INJECTABLE VIAL IVPUSH SCH ×2 (05:16→14:01)
[2019-12-25] MEDS ORDERED: hydrALAZINE HCL 20 MG/ML VIAL IVPUSH ONE (06:47)
[2019-12-25] MEDS: LEVOTHYROXINE NA 25 MCG TABLET (FP) PO SCH (07:24)
[2019-12-25] MEDS ORDERED: PT OWN MED DRAWER 7, Y5N ONE ×2 (08:58→18:54)
[2019-12-25] MEDS: HEPARIN NA (PORCINE) 5,000 UNITS/ML 1ML VIAL SQ SCH ×2 (09:05→21:35)
[2019-12-25] MEDS: LABETALOL HCL INJECTION 1,000 MG in DEXTROSE 5%-WATER - 800 ML IV SCH (09:14)
--- NOTE | 2019-12-25 10:27 | CONSULT ---
Admitting History and Physical - Admission History of Present Illness: per emr- 79 YO F with PMH HTN, HLD, DM, CHF, CKD, Hypothyroidism, CVA, NH, Dementia, Parkinson, Diverticulosis who was BIBEMS from home for SOB and leg swelling. Initially admitted to ICU for CHF exacerbation and hypertensive emergency (BP 205/72 with protein in urine) requiring Nitro drip and sent to tele after her BP stabilized. Patient was re-transferred to the ICU for Hypertensive urgency 2/2 medication non-compliance on the floor pt is reported to not taking her medication. Selected Entries 12/24/19 12/24/19 12/24/19 14:14 15:00 20:36 Breakfast 25% 0 0 Lunch 25% 0 0 Supper 25% Temperature Pulse Rate Blood Pressure O2 Sat by Pulse Oximetry (%) Oxygen Delivery Method 12/25/19 12/25/19 12/25/19 00:00 01:00 02:00 Breakfast Lunch Supper Temperature 97.6 F Pulse Rate 63 59 L 64 Blood Pressure 145/48 L 165/50 L 163/49 L O2 Sat by Pulse 100 100 100 Oximetry (%) Oxygen Delivery Method 12/25/19 12/25/19 12/25/19 03:55 04:00 05:00 Breakfast Lunch Supper Temperature Pulse Rate 65 66 67 Blood Pressure 168/57 L 171/60 H 182/55 H O2 Sat by Pulse 100 99 98 Oximetry (%) Oxygen Delivery Method 12/25/19 12/25/19 12/25/19 06:16 08:28 09:00 Breakfast Lunch Supper Temperature 98.9 F 98 F Pulse Rate 65 65 Blood Pressure 184/56 H 185/50 H O2 Sat by Pulse 99 99 99 Oximetry (%) Oxygen Delivery Nasal Cannula Method 12/25/19 12/25/19 09:59 10:00 Breakfast Lunch Supper Temperature Pulse Rate 70 Blood Pressure 208/63 H O2 Sat by Pulse 99 99 Oximetry (%) Oxygen Delivery Nasal Cannula Method Laboratory Tests 12/19/19 12/24/19 00:45 05:55 WBC 6.8 COVID-19 (GERALD) Not detected pt noted to be coughing on water. 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: Dementia, Peripheral Neuropathy, Parkinson's Cardiovascular: Yes: CHF (diastolic), HTN, Hyperlipdemia Gastrointestinal: Yes: Diverticulosis Psych: Yes: Anxiety Musculoskeletal: Yes: Osteoarthritis Endocrine: Yes: Diabetes Mellitus - Past Surgical History Past Surgical History: Yes: Appendectomy, Cholecystectomy, - Smoking History Smoking history: Never smoked Have you smoked in the past 12 months: No Aproximately how many cigarettes per day: 0 - Alcohol/Substance Use Hx Alcohol Use: No History of Substance Use: reports: None (unknown) - Social History 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 (also has [employer] 6 hours x5 days and 5 hours x2 days) History of Recent Travel: No History - Admission Reason For Visit: CONGESTIVE HEART FAILURE,HYPERTENSION - Diagnostics X-ray: Report Reviewed - General Mental Status: Awake and Alert, Able to Follow Commands, Intermittently Confused Attention: Intact - Hearing Hearing: Normal Speech Evaluation - Communication Primary Language: WELSH Communication: Yes: Within Normal Limits Oral Expression Ability: Yes: No Impairment - Speech Production Able to Make Needs Known: Yes: WNL Intelligibility: Yes: WNL - Speech Characteristics Voice Loudness: Normal Voice Pitch: Yes: Normal Voice Phonatory-based Quality: Yes: Normal Speech Pattern: Normal Speech Clarity: < 100% Nasal Resonance: Normal Articulation: Yes: Precise - Language/Auditory Comprehension Follows: Yes: 1 Stage Simple Commands Observation: Able to respond to yes/no queries: Yes, Yes/No Confusion: No, Compr ehends Conversational Speech: Yes - Language/Verbal Expression Aphasia: Yes: Anomia, Paraphrasic Errors, Neologisms Able to Respond to Simple Queries: Yes: WNL Functional Communication Status: Yes: WNL - Swallow Evaluation/Bedside Assessment Current Nutritional Intake: Other (on chopped/thin liquids) Oral Secretions: Yes: WFL Dentition: Yes: Missing Teeth Facial Symmetry at Rest: Symmetrical Facial Symmetry on Retraction: Symmetrical Facial Movement: Controlled Against Resistance Opening: Normal Against Resistance Closing: Normal Pucker Lips: Normal Smile: Normal Lingual Movement: Normal, Symmetric Lingual Speed of Movement: Normal Lingual Movement Strgth Against Opposition: Normal Lingual Movement Characteristics: Normal Laryngeal Movement: Able to Palpate Rate of Intake: Slow/Holding Bolus Size: Small Oral Prep Time: Increased A-P Transit: Impaired Pocketing: Present Bilaterally Timing of Swallow: Delayed Coughing/Throat Clear: No Recommendations - Speech Evaluation, Impression/Plan Impression: Oral holding, unable to form bolus and propel to oropharynx.Improved oral control, transfer with f/u with liquid. Pt verbal, c/o back pain. Dysphagia/Apraxia/ oral holding sec to Parkinsons/confusion? Consider Neurology to assess if PD medication/ therapeutic level? Remeron, seroquil, marinol adveresly affecting cognition/oral control? - Disposition Discharge to: To be Determined - Dysphagia Impressions/Plan Swallowing Skills: Impaired Dysphagia Impressions: Mild Impairment, Moderate Impairment, Ongoing Evaluation *Silent aspiration: cannot be R/O at bedside Dysphagia Treatment Plan: Small Bites, Chin Tuck/Down, Clear Pocket Food, Trial Feedings, Safe Rate, 1/2 tsp. at a time, Elevate HOB during feed, Other (Alternate puree/thin liquid Tell pt to close mouth/swallow, follow with sip of water/glucerna) Recommendations: Neuro Consult - Recommendations Diet Consistency: Dysphagia Pureed Medication Administration: Crushed with applesauce (follow with sip of water to clear oropharynx) Liquids: Thin Liquids Supplement: Ensure Pudding, Glucerna
[2019-12-25] MEDS: LOSARTAN POTASSIUM 50 MG TABLET PO SCH (10:59)
[2019-12-25] MEDS: ASPIRIN 81 MG CHEWABLE TABLETS PO SCH (10:59)
--- NOTE | 2019-12-25 11:11 | PN ---
Progress Note, Physician Chief Complaint: CHF exacerbation History of Present Illness: 79 year old female with recurrent admissions for CHF, this being her 3rd admission within this month for CHF exacerbation, came in to [facility] ER on 12/19/19 with SOB, weakness, BLLE edema. Started on nitro drip upon admission for SBP>200 mmHg, tapered off and restarted on PO meds. Pt has been pocketing her meds and spitting them out. BP still elevated. Msgs have been left on daughters phone over the weekend, with no call back - Current Medication List Current Medications: Active Medications Acetaminophen (Tylenol -) 1,000 mg PO Q6H PRN PRN Reason: PAIN Last Admin: 12/21/19 01:50 Dose: 1,000 mg Documented by: Acetaminophen (Tylenol -) 325 mg PO Q4H PRN PRN Reason: PAIN LEVEL 6-10 Stop: 12/27/19 18:59 Last Admin: 12/24/19 19:00 Dose: 325 mg Documented by: Al Hydroxide/Mg Hydroxide (Mylanta Oral Suspension -) 30 ml PO Q6H PRN PRN Reason: DYSPEPSIA Aspirin (Asa -) 81 mg PO DAILY [facility] Last Admin: 12/24/19 11:42 Dose: Not Given Documented by: Atorvastatin Calcium (Lipitor -) 20 mg PO [facility] Last Admin: 12/24/19 23:24 Dose: 20 mg Documented by: Chlorhexidine Gluconate (Hibiclens For Decolonization -) 1 applic TP [facility] Last Admin: 12/24/19 23:24 Dose: 1 applic Documented by: Dicyclomine HCl (Bentyl -) 10 mg PO Q6H PRN PRN Reason: MUSCLE SPASMS Dronabinol (Marinol -) 2.5 mg PO DAILY@1730 [facility] Last Admin: 12/24/19 17:19 Dose: 2.5 mg Documented by: Furosemide (Lasix Injection -) 40 mg IVPUSH BID@0600,1400 [facility] Last Admin: 12/25/19 05:16 Dose: 40 mg Documented by: Heparin Sodium (Porcine) (Heparin -) 5,000 unit SQ BID [facility] Last Admin: 12/25/19 09:05 Dose: 5,000 unit Documented by: Hydralazine HCl (Apresoline -) 75 mg PO TID [facility] Last Admin: 12/25/19 05:15 Dose: 75 mg Documented by: Hydralazine HCl (Apresoline Injection -) 20 mg IVPUSH Q6H PRN PRN Reason: HYPERTENSION Last Admin: 12/25/19 10:11 Dose: 20 mg Documented by: Labetalol HCl 1,000 mg/ (Dextrose) 1,000 mls @ 120 mls/hr IV TITR [facility] Last Admin: 12/25/19 09:14 Dose: Not Given Documented by: Insulin Aspart (Novolog Vial Sliding Scale -) 1 vial SQ ACHS [facility]; Protocol Last Admin: 12/25/19 07:08 Dose: Not Given Documented by: Labetalol HCl (Normodyne -) 300 mg PO TID [facility] Last Admin: 12/25/19 05:15 Dose: 300 mg Documented by: Levothyroxine Sodium (Synthroid -) 25 mcg PO DAILY@0700 [facility] Last Admin: 12/25/19 07:24 Dose: Not Given Documented by: Losartan Potassium (Cozaar -) 100 mg PO DAILY [facility] Last Admin: 12/24/19 15:05 Dose: 100 mg Documented by: Mirtazapine (Remeron -) 30 mg PO HS [facility] Last Admin: 12/24/19 23:24 Dose: 30 mg Documented by: Multivitamins/Minerals/Vitamin C (Tab-A-Vit -) 1 tab PO DAILY [facility] Last Admin: 12/24/19 11:44 Dose: Not Given Documented by: Mupirocin (Bactroban Ointment (For Decolonization) -) 1 applic NS BID [facility] Stop: 12/27/19 21:59 Last Admin: 12/24/19 23:24 Dose: 1 applic Documented by: Nifedipine (Procardia Xl -) 90 mg PO DAILY [facility] Last Admin: 12/24/19 15:05 Dose: 90 mg Documented by: Non-Formulary Medication (Memantine Hcl/Donepezil Hcl [Namzaric 14 Mg-10 Mg Capsule]) 1 cap PO DAILY [facility] Oxycodone HCl (Roxicodone -) 5 mg PO Q3H PRN PRN Reason: PAIN LEVEL 6-10 Last Admin: 12/24/19 18:59 Dose: 5 mg Documented by: Pantoprazole Sodium (Protonix -) 20 mg PO DAILY [facility] Last Admin: 12/24/19 11:42 Dose: Not Given Documented by: Polysaccharide Iron Complex (Niferex-150 -) 150 mg PO DAILY [facility] Last Admin: 12/24/19 11:42 Dose: Not Given Documented by: Quetiapine Fumarate (Seroquel -) 25 mg PO [facility] Last Admin: 12/24/19 23:24 Dose: 25 mg Documented by: Senna/Docusate Sodium (Pericolace -) 2 tablet PO [facility] Last Admin: 12/24/19 23:24 Dose: 2 tablet Documented by: - Objective Vital Signs: Vital Signs Temperature 98 F 12/25/19 08:28 Pulse Rate 70 12/25/19 09:59 Respiratory Rate 16 12/25/19 09:59 Blood Pressure 208/63 H 12/25/19 09:59 O2 Sat by Pulse Oximetry (%) 99 12/25/19 10:00 Constitutional: Yes: Well Nourished, No Distress, Calm Cardiovascular: Yes: Regular Rate and Rhythm Respiratory: Yes: Regular, CTA Bilaterally Gastrointestinal: Yes: Normal Bowel Sounds, Soft Genitourinary: Yes: Incontinence Musculoskeletal: Yes: Muscle Weakness Extremities: Yes: WNL Edema: No Peripheral Pulses WNL: Yes Neurological: Yes: Alert, Oriented (x2) Psychiatric: Yes: Alert Labs: CBC, BMP 12/24/19 05:55 12/24/19 05:55 Problem List - Problems (1) Acute on chronic diastolic (congestive) heart failure Assessment/Plan: -Cardiology consult -Tele monitoring -Furosemide 40 mg IVP BID -Continue nifedipine 90 mg po daily -Continue labetalol 300 mg po tid -Continue losartan 100 mg po daily -Continue Hydralazine 75 mg po tid -Low sodium diet Problems reviewed: Yes Code(s): I50.33 - ACUTE ON CHRONIC DIASTOLIC (CONGESTIVE) HEART FAILURE (2) CKD (chronic kidney disease) Assessment/Plan: -Nephrology consult -Cr at baseline -monitor trend Problems reviewed: Yes Code(s): N18.9 - CHRONIC KIDNEY DISEASE, UNSPECIFIED Qualifiers: Chronic kidney disease stage: stage 5, not on chronic dialysis Qualified Code(s): N18.5 - Chronic kidney disease, stage 5 (3) HTN (hypertension) Assessment/Plan: -as above Problems reviewed: Yes Code(s): I10 - ESSENTIAL (PRIMARY) HYPERTENSION (4) Weakness Assessment/Plan: -physical therapy -Safety precautions Problems reviewed: Yes Code(s): R53.1 - WEAKNESS (5) Failure to thrive Assessment/Plan: -May need peg placement if unable to swallow or eat. -Worsening dementia Problems reviewed: Yes Code(s): IVT5474 - Qualifiers: Failure to thrive age range: in adult Qualified Code(s): R62.7 - Adult failure to thrive (6) Parkinson disease Assessment/Plan: -Neurology consult Problems reviewed: Yes Code(s): G20 - PARKINSON'S DISEASE Assessment/Plan See problem list
[2019-12-25] MEDS: PANTOPRAZOLE 20 MG TABLET PO SCH (11:18)
[2019-12-25] MEDS: NIFEdipine E.R. 90 MG TABLET PO SCH (11:18)
[2019-12-25] MEDS: MUPIROCIN 2% TOPICAL OINTMENT FOR DECOLONIZATION NS SCH ×2 (11:18→21:35)
[2019-12-25] MEDS: IRON POLYSACCHARIDES 150 MG CAPSULE PO SCH (11:18)
[2019-12-25] MEDS: MULTIVITAMINS (DAILY MVI) TABLET (FP) PO SCH (11:18)
--- NOTE | 2019-12-25 11:58 | PN ---
Progress Note (short form) - Note Progress Note: SUBJECTIVE: Patient seen and examined in the ICU. BP improved. Denies CP or SOB. Tolerating PO intake. Intake & Output 12/22/19 12/23/19 12/24/19 12/25/19 23:59 23:59 23:59 23:59 Intake Total 520 480 400 Output Total 500 400 Balance 520 480 -100 -400 Weight 137 lb 7 oz 117 lb 0.5 oz 117 lb 0.5 oz Last Vital Signs Temp Pulse Resp BP Pulse Ox 98 F 74 14 192/57 H 99 12/25/19 08:28 12/25/19 11:19 12/25/19 11:19 12/25/19 11:19 12/25/19 11:19 Active Medications Acetaminophen (Tylenol -) 1,000 mg PO Q6H PRN PRN Reason: PAIN Last Admin: 12/21/19 01:50 Dose: 1,000 mg Documented by: Acetaminophen (Tylenol -) 325 mg PO Q4H PRN PRN Reason: PAIN LEVEL 6-10 Stop: 12/27/19 18:59 Last Admin: 12/24/19 19:00 Dose: 325 mg Documented by: Al Hydroxide/Mg Hydroxide (Mylanta Oral Suspension -) 30 ml PO Q6H PRN PRN Reason: DYSPEPSIA Aspirin (Asa -) 81 mg PO DAILY [facility] Last Admin: 12/25/19 10:59 Dose: 81 mg Documented by: Atorvastatin Calcium (Lipitor -) 20 mg PO [facility] Last Admin: 12/24/19 23:24 Dose: 20 mg Documented by: Chlorhexidine Gluconate (Hibiclens For Decolonization -) 1 applic TP [facility] Last Admin: 12/24/19 23:24 Dose: 1 applic Documented by: Dicyclomine HCl (Bentyl -) 10 mg PO Q6H PRN PRN Reason: MUSCLE SPASMS Dronabinol (Marinol -) 2.5 mg PO DAILY@1730 [facility] Last Admin: 12/24/19 17:19 Dose: 2.5 mg Documented by: Furosemide (Lasix Injection -) 40 mg IVPUSH BID@0600,1400 [facility] Last Admin: 12/25/19 05:16 Dose: 40 mg Documented by: Heparin Sodium (Porcine) (Heparin -) 5,000 unit SQ BID [facility] Last Admin: 12/25/19 09:05 Dose: 5,000 unit Documented by: Hydralazine HCl (Apresoline -) 75 mg PO TID [facility] Last Admin: 12/25/19 05:15 Dose: 75 mg Documented by: Hydralazine HCl (Apresoline Injection -) 20 mg IVPUSH Q6H PRN PRN Reason: HYPERTENSION Last Admin: 12/25/19 10:11 Dose: 20 mg Documented by: Labetalol HCl 1,000 mg/ (Dextrose) 1,000 mls @ 120 mls/hr IV TITR [facility] Last Admin: 12/25/19 09:14 Dose: Not Given Documented by: Insulin Aspart (Novolog Vial Sliding Scale -) 1 vial SQ ACHS [facility]; Protocol Last Admin: 12/25/19 11:00 Dose: Not Given Documented by: Labetalol HCl (Normodyne -) 300 mg PO TID [facility] Last Admin: 12/25/19 05:15 Dose: 300 mg Documented by: Levothyroxine Sodium (Synthroid -) 25 mcg PO DAILY@0700 [facility] Last Admin: 12/25/19 07:24 Dose: Not Given Documented by: Losartan Potassium (Cozaar -) 100 mg PO DAILY [facility] Last Admin: 12/25/19 10:59 Dose: 100 mg Documented by: Mirtazapine (Remeron -) 30 mg PO HS [facility] Last Admin: 12/24/19 23:24 Dose: 30 mg Documented by: Multivitamins/Minerals/Vitamin C (Tab-A-Vit -) 1 tab PO DAILY [facility] Last Admin: 12/25/19 11:18 Dose: 1 tab Documented by: Mupirocin (Bactroban Ointment (For Decolonization) -) 1 applic NS BID [facility] Stop: 12/27/19 21:59 Last Admin: 12/25/19 11:18 Dose: Not Given Documented by: Nifedipine (Procardia Xl -) 90 mg PO DAILY [facility] Last Admin: 12/25/19 11:18 Dose: 90 mg Documented by: Non-Formulary Medication (Memantine Hcl/Donepezil Hcl [Namzaric 14 Mg-10 Mg Capsule]) 1 cap PO DAILY [facility] Oxycodone HCl (Roxicodone -) 5 mg PO Q3H PRN PRN Reason: PAIN LEVEL 6-10 Last Admin: 10/04/20 18:59 Dose: 5 mg Documented by: Pantoprazole Sodium (Protonix -) 20 mg PO DAILY [facility] Last Admin: 12/25/19 11:18 Dose: Not Given Documented by: Polysaccharide Iron Complex (Niferex-150 -) 150 mg PO DAILY [facility] Last Admin: 12/25/19 11:18 Dose: Not Given Documented by: Quetiapine Fumarate (Seroquel -) 25 mg PO [facility] Last Admin: 12/24/19 23:24 Dose: 25 mg Documented by: Senna/Docusate Sodium (Pericolace -) 2 tablet PO [facility] Last Admin: 12/24/19 23:24 Dose: 2 tablet Documented by: Constitutional: Yes: NAD Eyes: Yes: WNL HENT: Yes: WNL Neck: Yes: WNL Cardiovascular: Yes: Regular Rate and Rhythm, S1, S2 Respiratory: Yes: Few scattered rhonchi Gastrointestinal: Yes: Normal Bowel Sounds, Soft Extremities: Yes: WNL Edema: No Labs: Laboratory Results - last 24 hr 12/24/19 12/25/19 12/25/19 16:41 01:06 05:28 POC Glucometer 142 120 114 12/25/19 10:53 POC Glucometer 101 Problem List - Problems (1) HTN (hypertension) Code(s): I10 - ESSENTIAL (PRIMARY) HYPERTENSION (2) JASPER (acute kidney injury) Code(s): N17.9 - ACUTE KIDNEY FAILURE, UNSPECIFIED (3) Acute on chronic diastolic heart failure Code(s): I50.33 - ACUTE ON CHRONIC DIASTOLIC (CONGESTIVE) HEART FAILURE (4) CKD (chronic kidney disease) Code(s): N18.9 - CHRONIC KIDNEY DISEASE, UNSPECIFIED Qualifiers: Chronic kidney disease stage: stage 5, not on chronic dialysis Qualified Code(s): N18.5 - Chronic kidney disease, stage 5 (5) Dementia Code(s): F03.90 - UNSPECIFIED DEMENTIA WITHOUT BEHAVIORAL DISTURBANCE (6) Diabetes Code(s): E11.9 - TYPE 2 DIABETES MELLITUS WITHOUT COMPLICATIONS Assessment/Plan Acute on Chronic Diastolic Heart Failure Pericardial Effusion HTN DM Hyperlipidemia CKD Hypothyroidism Parkinsons Dementia h/o CVA - Titrate BP Meds - PO meds - lasix - monitor urine output, creatinine - O2 to keep SpO2 >90% - DVT prophylaxis - Cardiac Telemetry monitoring Dr Zee
--- NOTE | 2019-12-25 13:31 | PN ---
Progress Note, Physician History of Present Illness: Pt seen and examined at bedside. She is refusing most meds. - Current Medication List Current Medications: Active Medications Acetaminophen (Tylenol -) 1,000 mg PO Q6H PRN PRN Reason: PAIN Last Admin: 12/21/19 01:50 Dose: 1,000 mg Documented by: Acetaminophen (Tylenol -) 325 mg PO Q4H PRN PRN Reason: PAIN LEVEL 6-10 Stop: 12/27/19 18:59 Last Admin: 12/24/19 19:00 Dose: 325 mg Documented by: Al Hydroxide/Mg Hydroxide (Mylanta Oral Suspension -) 30 ml PO Q6H PRN PRN Reason: DYSPEPSIA Aspirin (Asa -) 81 mg PO DAILY [facility] Last Admin: 12/25/19 10:59 Dose: 81 mg Documented by: Atorvastatin Calcium (Lipitor -) 20 mg PO HS [facility] Last Admin: 12/24/19 23:24 Dose: 20 mg Documented by: Chlorhexidine Gluconate (Hibiclens For Decolonization -) 1 applic TP [facility] Last Admin: 12/24/19 23:24 Dose: 1 applic Documented by: Dicyclomine HCl (Bentyl -) 10 mg PO Q6H PRN PRN Reason: MUSCLE SPASMS Dronabinol (Marinol -) 2.5 mg PO DAILY@1730 [facility] Last Admin: 12/24/19 17:19 Dose: 2.5 mg Documented by: Furosemide (Lasix Injection -) 40 mg IVPUSH BID@0600,1400 [facility] Last Admin: 12/25/19 05:16 Dose: 40 mg Documented by: Heparin Sodium (Porcine) (Heparin -) 5,000 unit SQ BID [facility] Last Admin: 12/25/19 09:05 Dose: 5,000 unit Documented by: Hydralazine HCl (Apresoline -) 75 mg PO TID [facility] Last Admin: 12/25/19 05:15 Dose: 75 mg Documented by: Hydralazine HCl (Apresoline Injection -) 20 mg IVPUSH Q6H PRN PRN Reason: HYPERTENSION Last Admin: 12/25/19 10:11 Dose: 20 mg Documented by: Labetalol HCl 1,000 mg/ (Dextrose) 1,000 mls @ 120 mls/hr IV TITR [facility] Last Admin: 10/05/20 09:14 Dose: Not Given Documented by: Insulin Aspart (Novolog Vial Sliding Scale -) 1 vial SQ ACHS [facility]; Protocol Last Admin: 12/25/19 11:00 Dose: Not Given Documented by: Labetalol HCl (Normodyne -) 300 mg PO TID [facility] Last Admin: 12/25/19 05:15 Dose: 300 mg Documented by: Levothyroxine Sodium (Synthroid -) 25 mcg PO DAILY@0700 [facility] Last Admin: 12/25/19 07:24 Dose: Not Given Documented by: Losartan Potassium (Cozaar -) 100 mg PO DAILY [facility] Last Admin: 12/25/19 10:59 Dose: 100 mg Documented by: Mirtazapine (Remeron -) 30 mg PO [facility] Last Admin: 12/24/19 23:24 Dose: 30 mg Documented by: Multivitamins/Minerals/Vitamin C (Tab-A-Vit -) 1 tab PO DAILY [facility] Last Admin: 12/25/19 11:18 Dose: 1 tab Documented by: Mupirocin (Bactroban Ointment (For Decolonization) -) 1 applic NS BID [facility] Stop: 12/27/19 21:59 Last Admin: 12/25/19 11:18 Dose: Not Given Documented by: Nifedipine (Procardia Xl -) 90 mg PO DAILY [facility] Last Admin: 12/25/19 11:18 Dose: 90 mg Documented by: Non-Formulary Medication (Memantine Hcl/Donepezil Hcl [Namzaric 14 Mg-10 Mg Capsule]) 1 cap PO DAILY [facility] Oxycodone HCl (Roxicodone -) 5 mg PO Q3H PRN PRN Reason: PAIN LEVEL 6-10 Last Admin: 12/24/19 18:59 Dose: 5 mg Documented by: Pantoprazole Sodium (Protonix -) 20 mg PO DAILY [facility] Last Admin: 12/25/19 11:18 Dose: Not Given Documented by: Polysaccharide Iron Complex (Niferex-150 -) 150 mg PO DAILY [facility] Last Admin: 12/25/19 11:18 Dose: Not Given Documented by: Quetiapine Fumarate (Seroquel -) 25 mg PO [facility] Last Admin: 12/24/19 23:24 Dose: 25 mg Documented by: Senna/Docusate Sodium (Pericolace -) 2 tablet PO [facility] Last Admin: 12/24/19 23:24 Dose: 2 tablet Documented by: - Objective Vital Signs: Vital Signs Temperature 98 F 12/25/19 08:28 Pulse Rate 59 L 12/25/19 13:10 Respiratory Rate 16 12/25/19 13:10 Blood Pressure 117/43 L 12/25/19 13:10 O2 Sat by Pulse Oximetry (%) 99 12/25/19 13:10 Constitutional: Yes: Calm Eyes: Yes: Conjunctiva Clear HENT: Yes: Atraumatic Neck: Yes: Supple Cardiovascular: Yes: S1, S2 Respiratory: Yes: CTA Bilaterally Gastrointestinal: Yes: Soft Genitourinary: Yes: Incontinence Edema: No Neurological: Yes: Confusion Labs: CBC, BMP 12/24/19 05:55 12/24/19 05:55 Assessment/Plan Current Medications Generic Name Dose Route Start Last Admin Trade Name Freq PRN Reason Stop Dose Admin Acetaminophen 1,000 mg 12/19/19 16:12 12/21/19 01:50 Tylenol - PO 1,000 mg Q6H PRN Administration PAIN Acetaminophen 325 mg 12/24/19 19:00 12/24/19 19:00 Tylenol - PO 12/27/19 18:59 325 mg Q4H PRN Administration PAIN LEVEL 6-10 Al Hydroxide/Mg Hydroxide 30 ml 12/19/19 14:40 Mylanta Oral Suspension - PO Q6H PRN DYSPEPSIA Aspirin 81 mg 12/20/19 10:00 12/25/19 10:59 Asa - PO 81 mg DAILY [facility] Administration Atorvastatin Calcium 20 mg 12/19/19 22:00 12/24/19 23:24 Lipitor - PO 20 mg HS [facility] Administration Chlorhexidine Gluconate 1 applic 12/22/19 22:00 12/24/19 23:24 Hibiclens For Decolonization - TP 1 applic HS [facility] Administration Dicyclomine HCl 10 mg 12/19/19 16:09 Bentyl - PO Q6H PRN MUSCLE SPASMS Dronabinol 2.5 mg 12/24/19 17:30 12/24/19 17:19 Marinol - PO 2.5 mg DAILY@1730 [facility] Administration Furosemide 40 mg 12/22/19 14:30 12/25/19 05:16 Lasix Injection - IVPUSH 40 mg BID@0600,1400 [facility] Administration Heparin Sodium (Porcine) 5,000 unit 12/19/19 22:00 12/25/19 09:05 Heparin - SQ 5,000 unit BID [facility] Administration Hydralazine HCl 75 mg 12/21/19 22:00 12/25/19 05:15 Apresoline - PO 75 mg TID [facility] Administration Hydralazine HCl 20 mg 12/24/19 12:18 12/25/19 10:11 Apresoline Injection - IVPUSH 20 mg Q6H PRN Administration HYPERTENSION Labetalol HCl 1,000 mg/ 1,000 mls @ 120 mls/hr 12/22/19 09:15 12/25/19 09:14 Dextrose IV Not Given TITR [facility] 2 MG/MIN Insulin Aspart 1 vial 12/22/19 16:30 12/25/19 11:00 Novolog Vial Sliding Scale - SQ Not Given ACHS [facility] Protocol Labetalol HCl 300 mg 12/21/19 14:23 12/25/19 05:15 Normodyne - PO 300 mg TID [facility] Administration Levothyroxine Sodium 25 mcg 12/20/19 07:00 12/25/19 07:24 Synthroid - PO Not Given DAILY@0700 [facility] Losartan Potassium 100 mg 12/21/19 14:22 12/25/19 10:59 Cozaar - PO 100 mg DAILY [facility] Administration Mirtazapine 30 mg 12/19/19 22:00 12/24/19 23:24 Remeron - PO 30 mg HS [facility] Administration Multivitamins/Minerals/Vitamin C 1 tab 12/20/19 10:00 12/25/19 11:18 Tab-A-Vit - PO 1 tab DAILY [facility] Administration Mupirocin 1 applic 12/22/19 22:00 12/25/19 11:18 Bactroban Ointment (For Decolonization) - NS 12/27/19 21:59 Not Given BID [facility] Nifedipine 90 mg 12/20/19 10:00 12/25/19 11:18 Procardia Xl - PO 90 mg DAILY [facility] Administration Non-Formulary Medication 1 cap 12/22/19 21:15 Memantine Hcl/Donepezil Hcl [Namzaric 14 Mg-10 Mg Capsule] PO DAILY [facility] Oxycodone HCl 5 mg 12/24/19 18:50 12/24/19 18:59 Roxicodone - PO 5 mg Q3H PRN Administration PAIN LEVEL 6-10 Pantoprazole Sodium 20 mg 12/20/19 10:00 12/25/19 11:18 Protonix - PO Not Given DAILY [facility] Polysaccharide Iron Complex 150 mg 12/20/19 10:00 12/25/19 11:18 Niferex-150 - PO Not Given DAILY [facility] Quetiapine Fumarate 25 mg 12/24/19 22:00 12/24/19 23:24 Seroquel - PO 25 mg HS [facility] Administration Senna/Docusate Sodium 2 tablet 12/19/19 22:00 12/24/19 23:24 Pericolace - PO 2 tablet HS [facility] Administration Impression 1. JASPER 2. CKD 3. HLD 4. diverticulosis 5. HTN 6. DM 7. proteinuria 8. hypoalbuminemia 9. UTI 10. pleural effusion 11. chf 12. pericardial effusion without tamponade 13. fluid overload Impression - bp has been very labile - pt is not always taking meds - cont to monitor jumana - hold next bp meds as bp is currently too low - discuss GOC with family, pt refusing po meds - psych eval - cont to monitor bp - avoid nsaids - avoid nephrotoxins
[2019-12-25] MEDS: DRONABINOL 2.5 MG CAPSULE PO SCH (17:25)
--- NOTE | 2019-12-25 18:19 | CONSULT ---
Consult - text type - Consultation Consultation Note: NEUROLOGY CONSULTATION is greatly appreciated: This 78 yo RH woman is well known to me, over many years with slowly progressive OMS, Parkinsonism and diabetic peripheral neuropathy. PMH sig for DM, HTN, Hypothyroidism, Chol, GERD and ASHD. Recently hospitalized with pericardial effusion and SOB. Maintained on: L-Thyroxin, insulin, atorvastatin, furosamide, pantoprazole,nifedepine, hydralzine, ASA, labetolol, losartan, mirtazepine, donepezil (10), mementine ER (28?), Marinol, quetiapine (25 HS),dicyclomine and oxycodone. Given L-Doppa in the past but D/C'ed on 12/24/18 due to persistent GI upset and weight loss CT scan of head (reviewed) shows moderate diffuse atrophy and microvasclar changes with a calcified falx Urine NQM=565 STEVENSON: Neck supple, No bruits, RR=20 NEURO: Awake, alert, cooperative Ox SJ. January, almost February 2020. Trump. No reversals. Recalls 2 of 3 at 3. + Glabella, snout, grasps (R>L). CN II-XII: Noraml. gag and swallow is fine. Motor: No drift. Mild rest tremor R>L. +cogwheeling (R>L). Brisk reflexes in arms. Reduced KJ's. Absent AJ's. Toes downgoing. Coord: No FTN dystaxia Sensory: Reduced Vibration and touch to mid calf IMP: 1. Mild-Moderate B/L cerebral dysfunction (OMS, chronic features) 2. Parkinson's disease (R>L) 3. Diabetic peripheral neuropathy 4. Toxic-metabolic encephalopathy (UTI?) SUGGEST: Check TSH, T4, B12, Consider antibiotics for UTI Simplify BP regimen (Patient may need assistance with compliance of even a simple regimen let alone one requiring TID Meds.) Break up Namzarec 16/01 into components: Donepezil 10 mg q AM and Memantine 10 mg BID Decrease Mirtazepine to 15 mg q HS D/C oxycodone, dicyclomine, marinol. Continue Quetiapine 25 QHS. When stable, I would retry Sinemet, perhaps with extra dose of Carbidopa to block GI side effects. Mobilize OO bed to chair and PT for gait with walker. Thank steven very much, Panchito Helton MD
[2019-12-25] MEDS: QUEtiapine FUMARATE 25 MG TABLET PO SCH (21:34)
[2019-12-25] MEDS: MEMANTINE HCL 10 MG TABLET (FP) PO SCH (21:34)
[2019-12-25] MEDS: ACETAMINOPHEN 325 MG TABLET (FP) PO PRN (21:35)
[2019-12-25] MEDS: MIRTAZAPINE 15 MG TABLET (FP) PO SCH (21:35)
[2019-12-25] MEDS: CHLORHEXIDINE GLUCONATE 4% CLEANSER FOR DECOLONIZATION TP SCH (21:35)
[2019-12-25] MEDS: SENNOSIDES/DOCUSATE COMBO (SENNA PLUS) TABLET (UD) PO SCH (21:50)
[2019-12-25] MEDS: ATORVASTATIN CA 20 MG TABLET (FP) PO SCH (21:50)
[2019-12-26] MEDS: hydrALAZINE HCL 20 MG/ML VIAL IVPUSH PRN ×2 (00:08→12:00)
[2019-12-26] MEDS ORDERED: NITROGLYCERIN 2% OINTMENT - 1GM PACKET TD ONE ×2 (01:03→04:05)
[2019-12-26] MEDS ORDERED: LABETALOL HCL 5 MG/1 ML (100MG/20 ML VIAL) IVPUSH ONE ×3 (02:08→04:07)
[2019-12-26] MEDS ORDERED: hydrALAZINE HCL 50 MG TABLET (FP) PO ONE (03:25)
--- NOTE | 2019-12-26 04:16 | PROC ---
Procedure Note Procedure: Episodic Note: Called by nurse several times patient SBP ranging between 195-215 overnight. She was asymptomatic. She was given 1 inch nitropaste with no improvement in blood pressure. Subsequently IV labetalol 10mg x2 has been ordered and still no improvement and remained hypertesnive. Case was discussed with Dr. Singh. Topical nitropaste 2 inches has been ordered. [facility] called overnight for hypertensive urgency. See note to follow by team with [facility] [employer]. Dena Khoury N.P.
[2019-12-26] MEDS: NITROGLYCERIN 25MG/D5W 250ML 25 MG/250 ML ML IVPB SCH (05:48)
[2019-12-26] MEDS: hydrALAZINE HCL 25 MG TABLET (FP) PO SCH ×5 (06:03→22:52)
[2019-12-26] MEDS: LABETALOL HCL 100 MG TABLET (FP) PO SCH ×5 (06:04→22:52)
[2019-12-26] MEDS: FUROSEMIDE 40 MG/4 ML INJECTABLE VIAL IVPUSH SCH ×2 (06:07→15:00)
[2019-12-26] MEDS: LEVOTHYROXINE NA 25 MCG TABLET (FP) PO SCH (06:08)
[2019-12-26] MEDS: INSULIN SLIDING SCALE (NOVOLOG) 1 VIAL SQ SCH ×4 (07:15→23:11)
[2019-12-26 07:51] LABS: ALBUMIN 2.5 g/dl (3.4-5.0); BILIRUBIN,TOTAL 0.4 mg/dL (0.2-1); BLOOD UREA NITROGEN 21.4 mg/dL (7-18); CALCIUM 8.4 mg/dL (8.5-10.1); CREATININE 1.3 mg/dL (0.55-1.3); POTASSIUM 3.5 mmol/L (3.5-5.1); TOT PROT 5.3 g/dl (6.4-8.2)
--- NOTE | 2019-12-26 08:26 | PN ---
Progress Note, Physician - Current Medication List Current Medications: Active Medications Acetaminophen (Tylenol -) 1,000 mg PO Q6H PRN PRN Reason: PAIN Last Admin: 12/21/19 01:50 Dose: 1,000 mg Documented by: Acetaminophen (Tylenol -) 325 mg PO Q4H PRN PRN Reason: PAIN LEVEL 6-10 Stop: 12/27/19 18:59 Last Admin: 12/24/19 19:00 Dose: 325 mg Documented by: Al Hydroxide/Mg Hydroxide (Mylanta Oral Suspension -) 30 ml PO Q6H PRN PRN Reason: DYSPEPSIA Aspirin (Asa -) 81 mg PO DAILY [facility] Last Admin: 12/25/19 10:59 Dose: 81 mg Documented by: Atorvastatin Calcium (Lipitor -) 20 mg PO HS [facility] Last Admin: 12/25/19 21:50 Dose: Not Given Documented by: Chlorhexidine Gluconate (Hibiclens For Decolonization -) 1 applic TP [facility] Last Admin: 12/25/19 21:35 Dose: 1 applic Documented by: Donepezil HCl (Aricept -) 10 mg PO DAILY [facility] Furosemide (Lasix Injection -) 40 mg IVPUSH BID@0600,1400 [facility] Last Admin: 12/26/19 06:07 Dose: 40 mg Documented by: Heparin Sodium (Porcine) (Heparin -) 5,000 unit SQ BID [facility] Last Admin: 12/25/19 21:35 Dose: 5,000 unit Documented by: Hydralazine HCl (Apresoline -) 75 mg PO TID [facility] Last Admin: 12/26/19 08:02 Dose: 75 mg Documented by: Hydralazine HCl (Apresoline Injection -) 20 mg IVPUSH Q6H PRN PRN Reason: HYPERTENSION Last Admin: 12/26/19 00:08 Dose: 20 mg Documented by: Labetalol HCl 1,000 mg/ (Dextrose) 1,000 mls @ 120 mls/hr IV TITR [facility] Last Admin: 12/25/19 09:14 Dose: Not Given Documented by: Nitroglycerin/Dextrose (Nitroglycerin 25mg/D5w 250ml) 25 mg in 250 mls @ 6 mls/hr IVPB TITR [facility]; Protocol Last Admin: 12/26/19 05:48 Dose: 10 mcg/min, 6 mls/hr Documented by: Insulin Aspart (Novolog Vial Sliding Scale -) 1 vial SQ ACHS [facility]; Protocol Last Admin: 12/26/19 07:15 Dose: Not Given Documented by: Labetalol HCl (Normodyne -) 300 mg PO TID [facility] Last Admin: 12/26/19 08:02 Dose: 300 mg Documented by: Levothyroxine Sodium (Synthroid -) 25 mcg PO DAILY@0700 [facility] Last Admin: 12/26/19 06:08 Dose: 25 mcg Documented by: Losartan Potassium (Cozaar -) 100 mg PO DAILY [facility] Last Admin: 12/25/19 10:59 Dose: 100 mg Documented by: Memantine (Namenda -) 10 mg PO BID [facility] Last Admin: 12/25/19 21:34 Dose: 10 mg Documented by: Mirtazapine (Remeron -) 15 mg PO [facility] Last Admin: 12/25/19 21:35 Dose: 15 mg Documented by: Multivitamins/Minerals/Vitamin C (Tab-A-Vit -) 1 tab PO DAILY [facility] Last Admin: 12/25/19 11:18 Dose: 1 tab Documented by: Mupirocin (Bactroban Ointment (For Decolonization) -) 1 applic NS BID [facility] Stop: 12/27/19 21:59 Last Admin: 12/25/19 21:35 Dose: 1 applic Documented by: Nifedipine (Procardia Xl -) 90 mg PO DAILY [facility] Last Admin: 12/25/19 11:18 Dose: 90 mg Documented by: Pantoprazole Sodium (Protonix -) 20 mg PO DAILY [facility] Last Admin: 12/25/19 11:18 Dose: Not Given Documented by: Polysaccharide Iron Complex (Niferex-150 -) 150 mg PO DAILY [facility] Last Admin: 12/25/19 11:18 Dose: Not Given Documented by: Quetiapine Fumarate (Seroquel -) 25 mg PO [facility] Last Admin: 12/25/19 21:34 Dose: 25 mg Documented by: Senna/Docusate Sodium (Pericolace -) 2 tablet PO [facility] Last Admin: 12/25/19 21:50 Dose: Not Given Documented by: - Objective Vital Signs: Vital Signs Temperature 98.8 F 12/26/19 06:16 Pulse Rate 71 12/26/19 08:00 Respiratory Rate 14 12/26/19 08:00 Blood Pressure 212/70 H 12/26/19 08:00 O2 Sat by Pulse Oximetry (%) 100 12/26/19 08:00 Cardiovascular: Yes: Regular Rate and Rhythm Respiratory: Yes: Regular, CTA Bilaterally Gastrointestinal: Yes: Normal Bowel Sounds, Soft Labs: CBC, BMP 12/24/19 05:55 12/26/19 06:28 Assessment/Plan - Problems (1) Acute on chronic diastolic (congestive) heart failure Assessment/Plan: -Cardiology consult -Tele monitoring -Furosemide 40 mg IVP BID -Continue nifedipine 90 mg po daily -Continue labetalol 300 mg po tid -Continue losartan 100 mg po daily -Continue Hydralazine 75 mg po tid -on nitro drip -Low sodium diet Problems reviewed: Yes Code(s): I50.33 - ACUTE ON CHRONIC DIASTOLIC (CONGESTIVE) HEART FAILURE (2) CKD (chronic kidney disease) Assessment/Plan: -Nephrology consult -Cr at baseline -monitor trend Problems reviewed: Yes Code(s): N18.9 - CHRONIC KIDNEY DISEASE, UNSPECIFIED Qualifiers: Chronic kidney disease stage: stage 5, not on chronic dialysis Qualified Code(s): N18.5 - Chronic kidney disease, stage 5 (3) HTN (hypertension) Assessment/Plan: -as above -taking meds is issue Problems reviewed: Yes Code(s): I10 - ESSENTIAL (PRIMARY) HYPERTENSION (4) Weakness Assessment/Plan: -physical therapy -Safety precautions Problems reviewed: Yes Code(s): R53.1 - WEAKNESS (5) Failure to thrive Assessment/Plan: -May need peg placement if unable to swallow or eat. -Worsening dementia Problems reviewed: Yes Code(s): SQB2118 - Qualifiers: Failure to thrive age range: in adult Qualified Code(s): R62.7 - Adult failure to thrive (6) Parkinson disease Assessment/Plan: -Neurology consult noted Problems reviewed: Yes Code(s): G20 - PARKINSON'S DISEASE Message left for daughter
[2019-12-26] MEDS: LABETALOL HCL INJECTION 1,000 MG in DEXTROSE 5%-WATER - 800 ML IV SCH (09:35)
[2019-12-26] MEDS ORDERED: PT OWN MED DRAWER 7, Y5N ONE (09:43)
[2019-12-26] MEDS: ASPIRIN 81 MG CHEWABLE TABLETS PO SCH (09:45)
[2019-12-26] MEDS: DONEPEZIL HCL 10 MG TABLET (FP) PO SCH (09:45)
[2019-12-26] MEDS: NIFEdipine E.R. 90 MG TABLET PO SCH (09:45)
[2019-12-26] MEDS: MUPIROCIN 2% TOPICAL OINTMENT FOR DECOLONIZATION NS SCH ×2 (09:46→23:04)
[2019-12-26] MEDS: MEMANTINE HCL 10 MG TABLET (FP) PO SCH ×2 (09:46→22:52)
[2019-12-26] MEDS: HEPARIN NA (PORCINE) 5,000 UNITS/ML 1ML VIAL SQ SCH ×2 (09:46→23:04)
[2019-12-26] MEDS: LOSARTAN POTASSIUM 50 MG TABLET PO SCH (09:46)
[2019-12-26] MEDS: MULTIVITAMINS (DAILY MVI) TABLET (FP) PO SCH (09:46)
[2019-12-26] MEDS: PANTOPRAZOLE 20 MG TABLET PO SCH (09:46)
[2019-12-26] MEDS: IRON POLYSACCHARIDES 150 MG CAPSULE PO SCH (09:47)
--- NOTE | 2019-12-26 10:02 | PN ---
Progress Note, [employer] - Note Progress Note: Selected Entries 12/25/19 12/25/19 12/26/19 15:00 22:00 00:00 Breakfast 0 0 Lunch 25% Blood Pressure 210/60 H O2 Sat by Pulse Oximetry (%) 12/26/19 12/26/19 12/26/19 00:20 00:30 00:39 Breakfast Lunch Blood Pressure 210/60 H 204/59 H 200/58 H O2 Sat by Pulse 100 100 100 Oximetry (%) 12/26/19 12/26/19 12/26/19 00:53 01:00 01:30 Breakfast Lunch Blood Pressure 207/52 H 206/53 H 205/54 H O2 Sat by Pulse 100 100 98 Oximetry (%) 12/26/19 12/26/19 12/26/19 01:42 02:00 02:17 Breakfast Lunch Blood Pressure 205/55 H 217/56 H 211/56 H O2 Sat by Pulse 97 95 100 Oximetry (%) 12/26/19 12/26/19 12/26/19 02:30 02:42 03:00 Breakfast Lunch Blood Pressure 196/52 H 198/51 H 202/54 H O2 Sat by Pulse 99 99 95 Oximetry (%) 12/26/19 12/26/19 12/26/19 03:15 03:30 03:49 Breakfast Lunch Blood Pressure 194/54 H 208/61 H 213/58 H O2 Sat by Pulse 97 97 100 Oximetry (%) 12/26/19 12/26/19 12/26/19 04:00 04:07 04:15 Breakfast Lunch Blood Pressure 215/59 H 215/56 H 207/62 H O2 Sat by Pulse 100 99 100 Oximetry (%) 12/26/19 12/26/19 12/26/19 04:33 04:45 05:00 Breakfast Lunch Blood Pressure 220/59 H 212/58 H 217/58 H O2 Sat by Pulse 100 94 L 100 Oximetry (%) 12/26/19 12/26/19 12/26/19 05:12 05:22 05:39 Breakfast Lunch Blood Pressure 218/56 H 211/57 H 227/61 H O2 Sat by Pulse 100 100 100 Oximetry (%) 12/26/19 12/26/19 12/26/19 05:50 06:00 06:16 Breakfast Lunch Blood Pressure 218/61 H 216/65 H 218/66 H O2 Sat by Pulse 100 100 99 Oximetry (%) 12/26/19 08:00 Breakfast Lunch Blood Pressure 212/70 H O2 Sat by Pulse 100 Oximetry (%) Laboratory Tests 12/24/19 05:55 WBC 6.8 Evaluated by neurology-IMP: 1. Mild-Moderate B/L cerebral dysfunction (OMS, chronic features) 2. Parkinson's disease (R>L) 3. Diabetic peripheral neuropathy 4. Toxic-metabolic encephalopathy (UTI?) SUGGEST: Check TSH, T4, B12, Consider antibiotics for UTI Simplify BP regimen (Patient may need assistance with compliance of even a simple regimen let alone one requiring TID Meds.) Break up Namzarec 16/01 into components: Donepezil 10 mg q AM and Memantine 10 mg BID Decrease Mirtazepine to 15 mg q HS D/C oxycodone, dicyclomine, marinol. Continue Quetiapine 25 QHS. When stable, I would retry Sinemet, perhaps with extra dose of Carbidopa to block GI side effects. Mobilize OO bed to chair and PT for gait with walker. Pt on chopped diet. - Recommendations Diet Consistency: Dysphagia Pureed Medication Administration: Crushed with applesauce (follow with sip of water to clear oropharynx) Liquids: Thin Liquids Supplement: Ensure Pudding, Glucerna Small Bites, Chin Tuck/Down, Clear Pocket Food, Trial Feedings, Safe Rate, 1/2 tsp. at a time, Elevate HOB during feed, Other (Alternate puree/thin liquid Tell pt to close mouth/swallow, follow with sip of water/glucerna More verbal today. Pt swallowed puree or meds crushed and placed in applesauce intermittently, needing liquid washdown to facilitate juvencio-pharyngeal transfer and swallow initiation intermittently. One instance of coughing noted with crushed meds, in applesauce with water to follow via straw. Unclear if coughing related to pieces of meds in her pharynx, or aspiration , maybe related to straw drinking. Follow up single sips of water from cup tolerated well. Suggest-Puree, alternate with single sips of thin water or ensure. If cough noted, consider MBS/nectar thick liquids
--- NOTE | 2019-12-26 12:49 | PN ---
Progress Note (short form) - Note Progress Note: Patient seen and examined in the ICU. BP improved. Denies CP or SOB. Tolerating PO intake. Intake & Output 12/23/19 12/24/19 12/25/19 12/26/19 23:59 23:59 23:59 23:59 Intake Total 480 400 240 Output Total 500 900 300 Balance 480 -100 -660 -300 Weight 137 lb 7 oz 117 lb 0.5 oz 117 lb 0.5 oz 114 lb 12.8 oz Last Vital Signs Temp Pulse Resp BP Pulse Ox 98.2 F 65 16 181/71 H 95 12/26/19 12:00 12/26/19 12:00 12/26/19 12:00 12/26/19 12:00 12/26/19 12:00 Active Medications Acetaminophen (Tylenol -) 1,000 mg PO Q6H PRN PRN Reason: PAIN Last Admin: 12/21/19 01:50 Dose: 1,000 mg Documented by: Acetaminophen (Tylenol -) 325 mg PO Q4H PRN PRN Reason: PAIN LEVEL 6-10 Stop: 12/27/19 18:59 Last Admin: 12/24/19 19:00 Dose: 325 mg Documented by: Al Hydroxide/Mg Hydroxide (Mylanta Oral Suspension -) 30 ml PO Q6H PRN PRN Reason: DYSPEPSIA Aspirin (Asa -) 81 mg PO DAILY [facility] Last Admin: 12/26/19 09:45 Dose: 81 mg Documented by: Atorvastatin Calcium (Lipitor -) 20 mg PO [facility] Last Admin: 12/25/19 21:50 Dose: Not Given Documented by: Chlorhexidine Gluconate (Hibiclens For Decolonization -) 1 applic TP [facility] Last Admin: 12/25/19 21:35 Dose: 1 applic Documented by: Donepezil HCl (Aricept -) 10 mg PO DAILY [facility] Last Admin: 12/26/19 09:45 Dose: 10 mg Documented by: Furosemide (Lasix Injection -) 40 mg IVPUSH BID@0600,1400 [facility] Last Admin: 12/26/19 06:07 Dose: 40 mg Documented by: Heparin Sodium (Porcine) (Heparin -) 5,000 unit SQ BID [facility] Last Admin: 12/26/19 09:46 Dose: 5,000 unit Documented by: Hydralazine HCl (Apresoline -) 75 mg PO TID [facility] Last Admin: 12/26/19 08:02 Dose: 75 mg Documented by: Hydralazine HCl (Apresoline Injection -) 20 mg IVPUSH Q6H PRN PRN Reason: HYPERTENSION Last Admin: 12/26/19 12:00 Dose: 20 mg Documented by: Labetalol HCl 1,000 mg/ (Dextrose) 1,000 mls @ 120 mls/hr IV TITR [facility] Last Admin: 12/26/19 09:35 Dose: Not Given Documented by: Nitroglycerin/Dextrose (Nitroglycerin 25mg/D5w 250ml) 25 mg in 250 mls @ 6 mls/hr IVPB TITR [facility]; Protocol Last Titration: 12/26/19 09:50 Dose: 0 mcg/min, 0 mls/hr Documented by: Insulin Aspart (Novolog Vial Sliding Scale -) 1 vial SQ ACHS [facility]; Protocol Last Admin: 12/26/19 12:20 Dose: Not Given Documented by: Labetalol HCl (Normodyne -) 300 mg PO TID [facility] Last Admin: 12/26/19 08:02 Dose: 300 mg Documented by: Levothyroxine Sodium (Synthroid -) 25 mcg PO DAILY@0700 [facility] Last Admin: 12/26/19 06:08 Dose: 25 mcg Documented by: Losartan Potassium (Cozaar -) 100 mg PO DAILY [facility] Last Admin: 12/26/19 09:46 Dose: 100 mg Documented by: Memantine (Namenda -) 10 mg PO BID [facility] Last Admin: 12/26/19 09:46 Dose: 10 mg Documented by: Mirtazapine (Remeron -) 15 mg PO HS [facility] Last Admin: 12/25/19 21:35 Dose: 15 mg Documented by: Multivitamins/Minerals/Vitamin C (Tab-A-Vit -) 1 tab PO DAILY [facility] Last Admin: 12/26/19 09:46 Dose: 1 tab Documented by: Mupirocin (Bactroban Ointment (For Decolonization) -) 1 applic NS BID [facility] Stop: 12/27/19 21:59 Last Admin: 12/26/19 09:46 Dose: 1 applic Documented by: Nifedipine (Procardia Xl -) 90 mg PO DAILY [facility] Last Admin: 12/26/19 09:45 Dose: 90 mg Documented by: Pantoprazole Sodium (Protonix -) 20 mg PO DAILY [facility] Last Admin: 12/26/19 09:46 Dose: 20 mg Documented by: Polysaccharide Iron Complex (Niferex-150 -) 150 mg PO DAILY [facility] Last Admin: 12/26/19 09:47 Dose: 150 mg Documented by: Quetiapine Fumarate (Seroquel -) 25 mg PO [facility] Last Admin: 12/25/19 21:34 Dose: 25 mg Documented by: Senna/Docusate Sodium (Pericolace -) 2 tablet PO [facility] Last Admin: 12/25/19 21:50 Dose: Not Given Documented by: Constitutional: Yes: NAD Eyes: Yes: WNL HENT: Yes: WNL Neck: Yes: WNL Cardiovascular: Yes: Regular Rate and Rhythm, S1, S2 Respiratory: Yes: Few scattered rhonchi Gastrointestinal: Yes: Normal Bowel Sounds, Soft Extremities: Yes: WNL Edema: No Labs: Laboratory Results - last 24 hr 12/25/19 12/25/19 12/26/19 16:38 21:27 06:28 Sodium 146 H Potassium 3.5 Chloride 109 H Carbon Dioxide 32 Anion Gap 5 L BUN 21.4 H Creatinine 1.3 Est GFR (CKD-EPI)AfAm 45.83 Est GFR (CKD-EPI)NonAf 39.54 POC Glucometer 111 188 Random Glucose 112 H Calcium 8.4 L Total Bilirubin 0.4 AST 16 ALT 11 L Alkaline Phosphatase 99 Total Protein 5.3 L Albumin 2.5 L Vitamin B12 TSH 5.47 H Free T4 12/26/19 12/26/19 12/26/19 06:28 07:08 12:04 Sodium Potassium Chloride Carbon Dioxide Anion Gap BUN Creatinine Est GFR (CKD-EPI)AfAm Est GFR (CKD-EPI)NonAf POC Glucometer 110 192 Random Glucose Calcium Total Bilirubin AST ALT Alkaline Phosphatase Total Protein Albumin Vitamin B12 818 TSH Free T4 1.13 Problem List - Problems (1) HTN (hypertension) Code(s): I10 - ESSENTIAL (PRIMARY) HYPERTENSION (2) JASPER (acute kidney injury) Code(s): N17.9 - ACUTE KIDNEY FAILURE, UNSPECIFIED (3) Acute on chronic diastolic heart failure Code(s): I50.33 - ACUTE ON CHRONIC DIASTOLIC (CONGESTIVE) HEART FAILURE (4) CKD (chronic kidney disease) Code(s): N18.9 - CHRONIC KIDNEY DISEASE, UNSPECIFIED Qualifiers: Chronic kidney disease stage: stage 5, not on chronic dialysis Qualified Code(s): N18.5 - Chronic kidney disease, stage 5 (5) Dementia Code(s): F03.90 - UNSPECIFIED DEMENTIA WITHOUT BEHAVIORAL DISTURBANCE (6) Diabetes Code(s): E11.9 - TYPE 2 DIABETES MELLITUS WITHOUT COMPLICATIONS Assessment/Plan Acute on Chronic Diastolic Heart Failure Pericardial Effusion HTN DM Hyperlipidemia CKD Hypothyroidism Parkinsons Dementia h/o CVA - Titrate PO BP Meds - Lasix - monitor urine output, creatinine - O2 to keep SpO2 >90% - DVT prophylaxis - Cardiac Telemetry monitoring Dr Zee
--- NOTE | 2019-12-26 15:03 | PN ---
Progress Note, Physician History of Present Illness: Pt seen and examined at bedside. She is awake and appears comfortable. She sometimes takes her meds. - Current Medication List Current Medications: Active Medications Acetaminophen (Tylenol -) 1,000 mg PO Q6H PRN PRN Reason: PAIN Last Admin: 12/21/19 01:50 Dose: 1,000 mg Documented by: Acetaminophen (Tylenol -) 325 mg PO Q4H PRN PRN Reason: PAIN LEVEL 6-10 Stop: 12/27/19 18:59 Last Admin: 12/24/19 19:00 Dose: 325 mg Documented by: Al Hydroxide/Mg Hydroxide (Mylanta Oral Suspension -) 30 ml PO Q6H PRN PRN Reason: DYSPEPSIA Aspirin (Asa -) 81 mg PO DAILY [facility] Last Admin: 12/26/19 09:45 Dose: 81 mg Documented by: Atorvastatin Calcium (Lipitor -) 20 mg PO HS [facility] Last Admin: 12/25/19 21:50 Dose: Not Given Documented by: Chlorhexidine Gluconate (Hibiclens For Decolonization -) 1 applic TP [facility] Last Admin: 12/25/19 21:35 Dose: 1 applic Documented by: Donepezil HCl (Aricept -) 10 mg PO DAILY [facility] Last Admin: 12/26/19 09:45 Dose: 10 mg Documented by: Furosemide (Lasix Injection -) 40 mg IVPUSH BID@0600,1400 [facility] Last Admin: 12/26/19 06:07 Dose: 40 mg Documented by: Heparin Sodium (Porcine) (Heparin -) 5,000 unit SQ BID [facility] Last Admin: 12/26/19 09:46 Dose: 5,000 unit Documented by: Hydralazine HCl (Apresoline -) 75 mg PO TID [facility] Last Admin: 12/26/19 08:02 Dose: 75 mg Documented by: Hydralazine HCl (Apresoline Injection -) 20 mg IVPUSH Q6H PRN PRN Reason: HYPERTENSION Last Admin: 12/26/19 12:00 Dose: 10 mg Documented by: Labetalol HCl 1,000 mg/ (Dextrose) 1,000 mls @ 120 mls/hr IV TITR [facility] Last Admin: 12/26/19 09:35 Dose: Not Given Documented by: Nitroglycerin/Dextrose (Nitroglycerin 25mg/D5w 250ml) 25 mg in 250 mls @ 6 mls/hr IVPB TITR [facility]; Protocol Last Titration: 12/26/19 09:50 Dose: 0 mcg/min, 0 mls/hr Documented by: Insulin Aspart (Novolog Vial Sliding Scale -) 1 vial SQ ACHS [facility]; Protocol Last Admin: 12/26/19 12:20 Dose: Not Given Documented by: Labetalol HCl (Normodyne -) 300 mg PO TID [facility] Last Admin: 12/26/19 08:02 Dose: 300 mg Documented by: Levothyroxine Sodium (Synthroid -) 25 mcg PO DAILY@0700 [facility] Last Admin: 12/26/19 06:08 Dose: 25 mcg Documented by: Losartan Potassium (Cozaar -) 100 mg PO DAILY [facility] Last Admin: 12/26/19 09:46 Dose: 100 mg Documented by: Memantine (Namenda -) 10 mg PO BID [facility] Last Admin: 12/26/19 09:46 Dose: 10 mg Documented by: Mirtazapine (Remeron -) 15 mg PO [facility] Last Admin: 12/25/19 21:35 Dose: 15 mg Documented by: Multivitamins/Minerals/Vitamin C (Tab-A-Vit -) 1 tab PO DAILY [facility] Last Admin: 12/26/19 09:46 Dose: 1 tab Documented by: Mupirocin (Bactroban Ointment (For Decolonization) -) 1 applic NS BID [facility] Stop: 12/27/19 21:59 Last Admin: 12/26/19 09:46 Dose: 1 applic Documented by: Nifedipine (Procardia Xl -) 90 mg PO DAILY [facility] Last Admin: 12/26/19 09:45 Dose: 90 mg Documented by: Pantoprazole Sodium (Protonix -) 20 mg PO DAILY [facility] Last Admin: 12/26/19 09:46 Dose: 20 mg Documented by: Polysaccharide Iron Complex (Niferex-150 -) 150 mg PO DAILY [facility] Last Admin: 12/26/19 09:47 Dose: 150 mg Documented by: Quetiapine Fumarate (Seroquel -) 25 mg PO [facility] Last Admin: 12/25/19 21:34 Dose: 25 mg Documented by: Senna/Docusate Sodium (Pericolace -) 2 tablet PO [facility] Last Admin: 12/25/19 21:50 Dose: Not Given Documented by: - Objective Vital Signs: Vital Signs Temperature 98.2 F 12/26/19 12:00 Pulse Rate 63 12/26/19 14:00 Respiratory Rate 14 12/26/19 14:00 Blood Pressure 156/42 L 12/26/19 14:00 O2 Sat by Pulse Oximetry (%) 100 12/26/19 14:00 Constitutional: Yes: Calm Eyes: Yes: Conjunctiva Clear HENT: Yes: Atraumatic Neck: Yes: Supple Cardiovascular: Yes: S1, S2 Respiratory: Yes: CTA Bilaterally Gastrointestinal: Yes: Soft Genitourinary: Yes: Incontinence Musculoskeletal: Yes: WNL Edema: Yes Edema: LLE: Trace, RLE: Trace Neurological: Yes: Confusion Labs: CBC, BMP 12/24/19 05:55 12/26/19 06:28 Assessment/Plan Current Medications Generic Name Dose Route Start Last Admin Trade Name Freq PRN Reason Stop Dose Admin Acetaminophen 1,000 mg 12/19/19 16:12 12/21/19 01:50 Tylenol - PO 1,000 mg Q6H PRN Administration PAIN Acetaminophen 325 mg 12/24/19 19:00 12/24/19 19:00 Tylenol - PO 12/27/19 18:59 325 mg Q4H PRN Administration PAIN LEVEL 6-10 Al Hydroxide/Mg Hydroxide 30 ml 12/19/19 14:40 Mylanta Oral Suspension - PO Q6H PRN DYSPEPSIA Aspirin 81 mg 12/20/19 10:00 12/26/19 09:45 Asa - PO 81 mg DAILY [facility] Administration Atorvastatin Calcium 20 mg 12/19/19 22:00 12/25/19 21:50 Lipitor - PO Not Given HS [facility] Chlorhexidine Gluconate 1 applic 12/22/19 22:00 12/25/19 21:35 Hibiclens For Decolonization - TP 1 applic HS [facility] Administration Donepezil HCl 10 mg 12/26/19 10:00 12/26/19 09:45 Aricept - PO 10 mg DAILY [facility] Administration Furosemide 40 mg 12/22/19 14:30 12/26/19 06:07 Lasix Injection - IVPUSH 40 mg BID@0600,1400 [facility] Administration Heparin Sodium (Porcine) 5,000 unit 12/19/19 22:00 12/26/19 09:46 Heparin - SQ 5,000 unit BID [facility] Administration Hydralazine HCl 75 mg 12/21/19 22:00 12/26/19 08:02 Apresoline - PO 75 mg TID [facility] Administration Hydralazine HCl 20 mg 12/25/19 23:32 12/26/19 12:00 Apresoline Injection - IVPUSH 10 mg Q6H PRN Administration HYPERTENSION Labetalol HCl 1,000 mg/ 1,000 mls @ 120 mls/hr 12/22/19 09:15 12/26/19 09:35 Dextrose IV Not Given TITR [facility] 2 MG/MIN Nitroglycerin/Dextrose 25 mg in 250 mls @ 6 mls/hr 12/26/19 05:30 12/26/19 09:50 Nitroglycerin 25mg/D5w 250ml IVPB 0 mcg/min TITR [facility] 0 mls/hr Titration Protocol 10 MCG/MIN Insulin Aspart 1 vial 12/22/19 16:30 12/26/19 12:20 Novolog Vial Sliding Scale - SQ Not Given ACHS [facility] Protocol Labetalol HCl 300 mg 12/21/19 14:23 12/26/19 08:02 Normodyne - PO 300 mg TID [facility] Administration Levothyroxine Sodium 25 mcg 12/20/19 07:00 12/26/19 06:08 Synthroid - PO 25 mcg DAILY@0700 [facility] Administration Losartan Potassium 100 mg 12/21/19 14:22 12/26/19 09:46 Cozaar - PO 100 mg DAILY [facility] Administration Memantine 10 mg 12/25/19 22:00 12/26/19 09:46 Namenda - PO 10 mg BID [facility] Administration Mirtazapine 15 mg 12/25/19 18:43 12/25/19 21:35 Remeron - PO 15 mg HS [facility] Administration Multivitamins/Minerals/Vitamin C 1 tab 12/20/19 10:00 12/26/19 09:46 Tab-A-Vit - PO 1 tab DAILY [facility] Administration Mupirocin 1 applic 12/22/19 22:00 12/26/19 09:46 Bactroban Ointment (For Decolonization) - NS 12/27/19 21:59 1 applic BID [facility] Administration Nifedipine 90 mg 12/20/19 10:00 12/26/19 09:45 Procardia Xl - PO 90 mg DAILY [facility] Administration Pantoprazole Sodium 20 mg 12/20/19 10:00 12/26/19 09:46 Protonix - PO 20 mg DAILY [facility] Administration Polysaccharide Iron Complex 150 mg 12/20/19 10:00 12/26/19 09:47 Niferex-150 - PO 150 mg DAILY [facility] Administration Quetiapine Fumarate 25 mg 12/24/19 22:00 12/25/19 21:34 Seroquel - PO 25 mg HS [facility] Administration Senna/Docusate Sodium 2 tablet 12/19/19 22:00 12/25/19 21:50 Pericolace - PO Not Given HS [facility] Impression 1. JASPER 2. CKD 3. HLD 4. diverticulosis 5. HTN 6. DM 7. proteinuria 8. hypoalbuminemia 9. UTI 10. pleural effusion 11. chf 12. pericardial effusion without tamponade 13. fluid overload Impression - cont po meds - monitor bp - cont lasix - discuss GOC with family - cont arb - avoid nsaids - avoid nephrotoxins
[2019-12-26] MEDS: MIRTAZAPINE 15 MG TABLET (FP) PO SCH (22:53)
[2019-12-26] MEDS: QUEtiapine FUMARATE 25 MG TABLET PO SCH (22:53)
[2019-12-26] MEDS: ATORVASTATIN CA 20 MG TABLET (FP) PO SCH (22:53)
[2019-12-26] MEDS: SENNOSIDES/DOCUSATE COMBO (SENNA PLUS) TABLET (UD) PO SCH (23:05)
[2019-12-26] MEDS: CHLORHEXIDINE GLUCONATE 4% CLEANSER FOR DECOLONIZATION TP SCH (23:05)
[2019-12-27] MEDS ORDERED: ACETAMINOPHEN 1000 MG/100 ML VIAL (NON FORMULARY) IVPB ONE (02:00)
[2019-12-27] MEDS: INSULIN SLIDING SCALE (NOVOLOG) 1 VIAL SQ SCH ×4 (06:34→22:02)
[2019-12-27] MEDS: FUROSEMIDE 40 MG/4 ML INJECTABLE VIAL IVPUSH SCH ×2 (06:39→16:23)
[2019-12-27] MEDS: LEVOTHYROXINE NA 25 MCG TABLET (FP) PO SCH (06:39)
[2019-12-27] MEDS: LABETALOL HCL 100 MG TABLET (FP) PO SCH ×4 (06:40→21:44)
[2019-12-27] MEDS: hydrALAZINE HCL 25 MG TABLET (FP) PO SCH ×4 (06:40→21:44)
--- NOTE | 2019-12-27 08:45 | PN ---
Progress Note, Physician - Current Medication List Current Medications: Active Medications Acetaminophen (Tylenol -) 1,000 mg PO Q6H PRN PRN Reason: PAIN Last Admin: 12/21/19 01:50 Dose: 1,000 mg Documented by: Acetaminophen (Tylenol -) 325 mg PO Q4H PRN PRN Reason: PAIN LEVEL 6-10 Stop: 12/27/19 18:59 Last Admin: 12/24/19 19:00 Dose: 325 mg Documented by: Al Hydroxide/Mg Hydroxide (Mylanta Oral Suspension -) 30 ml PO Q6H PRN PRN Reason: DYSPEPSIA Aspirin (Asa -) 81 mg PO DAILY [facility] Last Admin: 12/26/19 09:45 Dose: 81 mg Documented by: Atorvastatin Calcium (Lipitor -) [address] [facility] Last Admin: 12/26/19 22:53 Dose: 20 mg Documented by: Chlorhexidine Gluconate (Hibiclens For Decolonization -) [address] [facility] Last Admin: 12/26/19 23:05 Dose: 1 applic Documented by: Donepezil HCl (Aricept -) 10 mg PO DAILY [facility] Last Admin: 12/26/19 09:45 Dose: 10 mg Documented by: Furosemide (Lasix Injection -) 40 mg IVPUSH BID@0600,1400 [facility] Last Admin: 12/27/19 06:39 Dose: 40 mg Documented by: Heparin Sodium (Porcine) (Heparin -) 5,000 unit SQ BID [facility] Last Admin: 12/26/19 23:04 Dose: 5,000 unit Documented by: Hydralazine HCl (Apresoline -) 75 mg PO TID [facility] Last Admin: 12/27/19 06:40 Dose: Not Given Documented by: Hydralazine HCl (Apresoline Injection -) 20 mg IVPUSH Q6H PRN PRN Reason: HYPERTENSION Last Admin: 12/26/19 12:00 Dose: 10 mg Documented by: Labetalol HCl 1,000 mg/ (Dextrose) 1,000 mls @ 120 mls/hr IV TITR [facility] Last Admin: 12/26/19 09:35 Dose: Not Given Documented by: Nitroglycerin/Dextrose (Nitroglycerin 25mg/D5w 250ml) 25 mg in 250 mls @ 6 mls/hr IVPB TITR [facility]; Protocol Last Titration: 12/26/19 09:50 Dose: 0 mcg/min, 0 mls/hr Documented by: Insulin Aspart (Novolog Vial Sliding Scale -) 1 vial SQ ACHS [facility]; Protocol Last Admin: 12/27/19 06:34 Dose: Not Given Documented by: Labetalol HCl (Normodyne -) 300 mg PO TID [facility] Last Admin: 12/27/19 06:40 Dose: Not Given Documented by: Levothyroxine Sodium (Synthroid -) 25 mcg PO DAILY@0700 [facility] Last Admin: 12/27/19 06:39 Dose: Not Given Documented by: Losartan Potassium (Cozaar -) 100 mg PO DAILY [facility] Last Admin: 12/26/19 09:46 Dose: 100 mg Documented by: Memantine (Namenda -) 10 mg PO BID [facility] Last Admin: 12/26/19 22:52 Dose: 10 mg Documented by: Mirtazapine (Remeron -) [address] [facility] Last Admin: 12/26/19 22:53 Dose: 15 mg Documented by: Multivitamins/Minerals/Vitamin C (Tab-A-Vit -) 1 tab PO DAILY [facility] Last Admin: 12/26/19 09:46 Dose: 1 tab Documented by: Mupirocin (Bactroban Ointment (For Decolonization) -) 1 applic NS BID [facility] Stop: 12/27/19 21:59 Last Admin: 12/26/19 23:04 Dose: 1 applic Documented by: Nifedipine (Procardia Xl -) 90 mg PO DAILY [facility] Last Admin: 12/26/19 09:45 Dose: 90 mg Documented by: Pantoprazole Sodium (Protonix -) 20 mg PO DAILY [facility] Last Admin: 12/26/19 09:46 Dose: 20 mg Documented by: Polysaccharide Iron Complex (Niferex-150 -) 150 mg PO DAILY [facility] Last Admin: 12/26/19 09:47 Dose: 150 mg Documented by: Quetiapine Fumarate (Seroquel -) [address] [facility] Last Admin: 12/26/19 22:53 Dose: 25 mg Documented by: Senna/Docusate Sodium (Pericolace -) [address] [facility] Last Admin: 12/26/19 23:05 Dose: 2 tablet Documented by: - Objective Vital Signs: Vital Signs Temperature 97.1 F L 12/27/19 06:00 Pulse Rate 62 12/27/19 08:00 Respiratory Rate 12 12/27/19 08:00 Blood Pressure 194/56 H 12/27/19 08:00 O2 Sat by Pulse Oximetry (%) 100 12/27/19 08:21 Cardiovascular: Yes: S1, S2 Respiratory: Yes: Regular, CTA Bilaterally Gastrointestinal: Yes: Normal Bowel Sounds, Soft Labs: CBC, BMP 12/24/19 05:55 12/26/19 06:28 Assessment/Plan - Problems (1) Acute on chronic diastolic (congestive) heart failure Assessment/Plan: -Cardiology consult -Tele monitoring -Furosemide 40 mg IVP BID -Continue nifedipine 90 mg po daily -Continue labetalol 300 mg po tid -Continue losartan 100 mg po daily -Continue Hydralazine 75 mg po tid -on nitro drip -Low sodium diet Problems reviewed: Yes Code(s): I50.33 - ACUTE ON CHRONIC DIASTOLIC (CONGESTIVE) HEART FAILURE (2) CKD (chronic kidney disease) Assessment/Plan: -Nephrology consult -Cr at baseline -monitor trend Problems reviewed: Yes Code(s): N18.9 - CHRONIC KIDNEY DISEASE, UNSPECIFIED Qualifiers: Chronic kidney disease stage: stage 5, not on chronic dialysis Qualified Code(s): N18.5 - Chronic kidney disease, stage 5 (3) HTN (hypertension) Assessment/Plan: -as above -taking meds is issue Problems reviewed: Yes Code(s): I10 - ESSENTIAL (PRIMARY) HYPERTENSION (4) Weakness Assessment/Plan: -physical therapy -Safety precautions Problems reviewed: Yes Code(s): R53.1 - WEAKNESS (5) Failure to thrive Assessment/Plan: -May need peg placement if unable to swallow or eat. -Worsening dementia Problems reviewed: Yes Code(s): [id number] - Qualifiers: Failure to thrive age range: in adult Qualified Code(s): R62.7 - Adult failure to thrive (6) Parkinson disease Assessment/Plan: -Neurology consult noted Problems reviewed: Yes Code(s): G20 - PARKINSON'S DISEASE CURRENT SITUATION DISCUSSED WITH LUCAS AND HER DAUGHTER GIOVANNY SINCE PT REFUSES AND SPITS OUT MEDS FREQUENTLY IT WILL BE DIFFICULT TO CONTROL AND MANGE HER CONDITION ESPECIALLY HER BP. PEG WILL BE BEST OPTION TO MANGE PATIENT
[2019-12-27] MEDS ORDERED: PT OWN MED DRAWER 7, Y5N ONE (10:45)
[2019-12-27] MEDS: MEMANTINE HCL 10 MG TABLET (FP) PO SCH ×3 (10:47→23:55)
[2019-12-27] MEDS: IRON POLYSACCHARIDES 150 MG CAPSULE PO SCH ×2 (10:47→11:05)
[2019-12-27] MEDS: HEPARIN NA (PORCINE) 5,000 UNITS/ML 1ML VIAL SQ SCH ×2 (10:47→22:01)
[2019-12-27] MEDS: MULTIVITAMINS (DAILY MVI) TABLET (FP) PO SCH (10:48)
[2019-12-27] MEDS: LOSARTAN POTASSIUM 50 MG TABLET PO SCH (10:48)
[2019-12-27] MEDS: DONEPEZIL HCL 10 MG TABLET (FP) PO SCH ×2 (10:48→11:05)
[2019-12-27] MEDS: PANTOPRAZOLE 20 MG TABLET PO SCH ×2 (10:48→11:05)
[2019-12-27] MEDS: MUPIROCIN 2% TOPICAL OINTMENT FOR DECOLONIZATION NS SCH (10:48)
[2019-12-27] MEDS: NIFEdipine E.R. 90 MG TABLET PO SCH (10:48)
[2019-12-27] MEDS: NITROGLYCERIN 25MG/D5W 250ML 25 MG/250 ML ML IVPB SCH (10:49)
[2019-12-27] MEDS: LABETALOL HCL INJECTION 1,000 MG in DEXTROSE 5%-WATER - 800 ML IV SCH (10:49)
--- NOTE | 2019-12-27 11:01 | PN ---
Progress Note, [employer] - Note Progress Note: Selected Entries 12/26/19 12/27/19 12/27/19 15:00 00:00 02:00 Breakfast 25% Diet Tolerated Fair Lunch 25% Temperature Pulse Rate 60 Blood Pressure 157/52 L 159/70 Blood Pressure Mean Oxygen Delivery Method 12/27/19 12/27/19 12/27/19 04:00 06:00 08:00 Breakfast Diet Tolerated Lunch Temperature 97.1 F L Pulse Rate 64 62 62 Blood Pressure 166/50 L 164/48 L 194/56 H Blood Pressure 80 94 Mean Oxygen Delivery Method 12/27/19 12/27/19 08:21 10:00 Breakfast Diet Tolerated Lunch Temperature 97.6 F Pulse Rate 57 L Blood Pressure 159/58 L Blood Pressure 89 Mean Oxygen Delivery Nasal Cannula Method Laboratory Tests 12/27/19 06:27 POC Glucometer 113 Reportedly did not accept medication last night, per nursing notes.Pt accepts po intermittently, taking a long time to swallow, needing liquid wash down to clear oral residue and facilitate swallow onset
[2019-12-27 11:11] LABS: BASO % 1.2 % (0-2.0); EOS % 11.4 % (0-4.5); HEMATOCRIT 30.5 % (32.4-45.2); HEMOGLOBIN 9.8 GM/dL (10.7-15.3); MCH 26.9 pg (25.7-33.7); MCHC 32.2 g/dl (32.0-36.0); MEAN CELL VOLUME 83.4 fl (80-96); MEAN PLT VOLUME 8.1 fl (7.5-11.1); MONO % 14.5 % (3.8-10.2); NEUT % 62.9 % (42.8-82.8); PLATELET COUNT 367 K/MM3 (134-434); RBC 3.66 M/mm3 (3.60-5.2); RDW 18.8 % (11.6-15.6); WHITE BLOOD COUNT 5.2 K/mm3 (4.0-10.0)
[2019-12-27 11:19] LABS: INR 1.04 (0.83-1.09); PROTHROMBIN TIME (PATIENT) 12.3 SEC (9.7-13.0)
[2019-12-27 11:39] LABS: ALBUMIN 2.6 g/dl (3.4-5.0); BILIRUBIN,TOTAL 0.5 mg/dL (0.2-1); BLOOD UREA NITROGEN 21.9 mg/dL (7-18); CALCIUM 8.5 mg/dL (8.5-10.1); CREATININE 1.2 mg/dL (0.55-1.3); POTASSIUM 3.9 mmol/L (3.5-5.1); TOT PROT 5.6 g/dl (6.4-8.2)
--- NOTE | 2019-12-27 13:02 | PN ---
Progress Note, Physician History of Present Illness: Pt seen and examined at bedside. She remains confused. She does not always take her meds. - Current Medication List Current Medications: Active Medications Acetaminophen (Tylenol -) 1,000 mg PO Q6H PRN PRN Reason: PAIN Last Admin: 12/21/19 01:50 Dose: 1,000 mg Documented by: Acetaminophen (Tylenol -) 325 mg PO Q4H PRN PRN Reason: PAIN LEVEL 6-10 Stop: 12/27/19 18:59 Last Admin: 12/24/19 19:00 Dose: 325 mg Documented by: Al Hydroxide/Mg Hydroxide (Mylanta Oral Suspension -) 30 ml PO Q6H PRN PRN Reason: DYSPEPSIA Atorvastatin Calcium (Lipitor -) 20 mg PO [facility] Last Admin: 12/26/19 22:53 Dose: 20 mg Documented by: Chlorhexidine Gluconate (Hibiclens For Decolonization -) 1 applic TP [facility] Last Admin: 12/26/19 23:05 Dose: 1 applic Documented by: Donepezil HCl (Aricept -) 10 mg PO DAILY [facility] Last Admin: 12/27/19 11:05 Dose: Not Given Documented by: Furosemide (Lasix Injection -) 40 mg IVPUSH BID@0600,1400 [facility] Last Admin: 12/27/19 06:39 Dose: 40 mg Documented by: Heparin Sodium (Porcine) (Heparin -) 5,000 unit SQ BID [facility] Last Admin: 12/27/19 10:47 Dose: 5,000 unit Documented by: Hydralazine HCl (Apresoline -) 75 mg PO TID [facility] Last Admin: 12/27/19 08:42 Dose: 75 mg Documented by: Hydralazine HCl (Apresoline Injection -) 20 mg IVPUSH Q6H PRN PRN Reason: HYPERTENSION Last Admin: 12/26/19 12:00 Dose: 10 mg Documented by: Labetalol HCl 1,000 mg/ (Dextrose) 1,000 mls @ 120 mls/hr IV TITR [facility] Last Admin: 12/27/19 10:49 Dose: Not Given Documented by: Nitroglycerin/Dextrose (Nitroglycerin 25mg/D5w 250ml) 25 mg in 250 mls @ 6 mls/hr IVPB TITR [facility]; Protocol Last Admin: 12/27/19 10:49 Dose: Not Given Documented by: Insulin Aspart (Novolog Vial Sliding Scale -) 1 vial SQ ACHS [facility]; Protocol Last Admin: 12/27/19 12:19 Dose: Not Given Documented by: Labetalol HCl (Normodyne -) 300 mg PO TID [facility] Last Admin: 12/27/19 08:44 Dose: 300 mg Documented by: Levothyroxine Sodium (Synthroid -) 25 mcg PO DAILY@0700 [facility] Last Admin: 12/27/19 06:39 Dose: Not Given Documented by: Losartan Potassium (Cozaar -) 100 mg PO DAILY [facility] Last Admin: 12/27/19 10:48 Dose: 100 mg Documented by: Memantine (Namenda -) 10 mg PO BID [facility] Last Admin: 12/27/19 11:05 Dose: Not Given Documented by: Mirtazapine (Remeron -) 15 mg PO [facility] Last Admin: 12/26/19 22:53 Dose: 15 mg Documented by: Multivitamins/Minerals/Vitamin C (Tab-A-Vit -) 1 tab PO DAILY [facility] Last Admin: 12/27/19 10:48 Dose: 1 tab Documented by: Mupirocin (Bactroban Ointment (For Decolonization) -) 1 applic NS BID [facility] Stop: 12/27/19 21:59 Last Admin: 12/27/19 10:48 Dose: 1 applic Documented by: Nifedipine (Procardia Xl -) 90 mg PO DAILY [facility] Last Admin: 12/27/19 10:48 Dose: 90 mg Documented by: Pantoprazole Sodium (Protonix -) 20 mg PO DAILY [facility] Last Admin: 12/27/19 11:05 Dose: Not Given Documented by: Polysaccharide Iron Complex (Niferex-150 -) 150 mg PO DAILY [facility] Last Admin: 12/27/19 11:05 Dose: Not Given Documented by: Quetiapine Fumarate (Seroquel -) 25 mg PO [facility] Last Admin: 12/26/19 22:53 Dose: 25 mg Documented by: Senna/Docusate Sodium (Pericolace -) 2 tablet PO [facility] Last Admin: 12/26/19 23:05 Dose: 2 tablet Documented by: - Objective Vital Signs: Vital Signs Temperature 97.6 F 12/27/19 10:00 Pulse Rate 57 L 12/27/19 10:00 Respiratory Rate 14 12/27/19 10:00 Blood Pressure 159/58 L 12/27/19 10:00 O2 Sat by Pulse Oximetry (%) 98 12/27/19 10:00 Constitutional: Yes: Calm Eyes: Yes: Conjunctiva Clear HENT: Yes: Atraumatic Cardiovascular: Yes: S1, S2 Respiratory: Yes: CTA Bilaterally Gastrointestinal: Yes: Soft Genitourinary: Yes: WNL Musculoskeletal: Yes: WNL Edema: No Integumentary: Yes: WNL Neurological: Yes: Confusion Psychiatric: Yes: Oriented Labs: CBC, BMP 12/27/19 10:18 12/27/19 10:18 INR, PTT INR 1.04 (0.83-1.09) 12/27/19 10:18 Assessment/Plan Current Medications Generic Name Dose Route Start Last Admin Trade Name Freq PRN Reason Stop Dose Admin Acetaminophen 1,000 mg 12/19/19 16:12 12/21/19 01:50 Tylenol - PO 1,000 mg Q6H PRN Administration PAIN Acetaminophen 325 mg 12/24/19 19:00 12/24/19 19:00 Tylenol - PO 12/27/19 18:59 325 mg Q4H PRN Administration PAIN LEVEL 6-10 Al Hydroxide/Mg Hydroxide 30 ml 12/19/19 14:40 Mylanta Oral Suspension - PO Q6H PRN DYSPEPSIA Atorvastatin Calcium 20 mg 12/19/19 22:00 12/26/19 22:53 Lipitor - PO 20 mg HS [facility] Administration Chlorhexidine Gluconate 1 applic 12/22/19 22:00 12/26/19 23:05 Hibiclens For Decolonization - TP 1 applic HS [facility] Administration Donepezil HCl 10 mg 12/26/19 10:00 12/27/19 11:05 Aricept - PO Not Given DAILY [facility] Furosemide 40 mg 12/22/19 14:30 12/27/19 06:39 Lasix Injection - IVPUSH 40 mg BID@0600,1400 [facility] Administration Heparin Sodium (Porcine) 5,000 unit 12/19/19 22:00 12/27/19 10:47 Heparin - SQ 5,000 unit BID [facility] Administration Hydralazine HCl 75 mg 12/21/19 22:00 12/27/19 08:42 Apresoline - PO 75 mg TID [facility] Administration Hydralazine HCl 20 mg 12/25/19 23:32 12/26/19 12:00 Apresoline Injection - IVPUSH 10 mg Q6H PRN Administration HYPERTENSION Labetalol HCl 1,000 mg/ 1,000 mls @ 120 mls/hr 12/22/19 09:15 12/27/19 10:49 Dextrose IV Not Given TITR [facility] 2 MG/MIN Nitroglycerin/Dextrose 25 mg in 250 mls @ 6 mls/hr 12/26/19 05:30 12/27/19 10:49 Nitroglycerin 25mg/D5w 250ml IVPB Not Given TITR [facility] Protocol 10 MCG/MIN Insulin Aspart 1 vial 12/22/19 16:30 12/27/19 12:19 Novolog Vial Sliding Scale - SQ Not Given ACHS [facility] Protocol Labetalol HCl 300 mg 12/21/19 14:23 12/27/19 08:44 Normodyne - PO 300 mg TID [facility] Administration Levothyroxine Sodium 25 mcg 12/20/19 07:00 12/27/19 06:39 Synthroid - PO Not Given DAILY@0700 [facility] Losartan Potassium 100 mg 12/21/19 14:22 12/27/19 10:48 Cozaar - PO 100 mg DAILY [facility] Administration Memantine 10 mg 12/25/19 22:00 12/27/19 11:05 Namenda - PO Not Given BID [facility] Mirtazapine 15 mg 12/25/19 18:43 12/26/19 22:53 Remeron - PO 15 mg HS [facility] Administration Multivitamins/Minerals/Vitamin C 1 tab 12/20/19 10:00 12/27/19 10:48 Tab-A-Vit - PO 1 tab DAILY [facility] Administration Mupirocin 1 applic 12/22/19 22:00 12/27/19 10:48 Bactroban Ointment (For Decolonization) - NS 12/27/19 21:59 1 applic BID [facility] Administration Nifedipine 90 mg 12/20/19 10:00 12/27/19 10:48 Procardia Xl - PO 90 mg DAILY [facility] Administration Pantoprazole Sodium 20 mg 12/20/19 10:00 12/27/19 11:05 Protonix - PO Not Given DAILY [facility] Polysaccharide Iron Complex 150 mg 12/20/19 10:00 12/27/19 11:05 Niferex-150 - PO Not Given DAILY [facility] Quetiapine Fumarate 25 mg 12/24/19 22:00 12/26/19 22:53 Seroquel - PO 25 mg HS [facility] Administration Senna/Docusate Sodium 2 tablet 12/19/19 22:00 12/26/19 23:05 Pericolace - PO 2 tablet HS [facility] Administration Impression 1. JASPER 2. CKD 3. HLD 4. diverticulosis 5. HTN 6. DM 7. proteinuria 8. hypoalbuminemia 9. UTI 10. pleural effusion 11. chf 12. pericardial effusion without tamponade 13. fluid overload Impression - cont to monitor bp - it has been difficult to control her bp as she does not always take her meds - family considering options including peg - cont lasix - discuss GOC with family - cont arb - avoid nsaids - avoid nephrotoxins
[2019-12-27] MEDS ORDERED: LABETALOL HCL INJECTION 1,000 MG in DEXTROSE 5%-WATER - 800 ML IV SCH (20:45)
[2019-12-27] MEDS ORDERED: MAG HYDROX/AL HYDROX/SIMETH 30 ML UNIT-DOSE CUP PO PRN (20:45)
[2019-12-27] MEDS: ACETAMINOPHEN 500 MG TABLET (FP) PO PRN (21:43)
[2019-12-27] MEDS: SENNOSIDES/DOCUSATE COMBO (SENNA PLUS) TABLET (UD) PO SCH ×2 (21:44→23:56)
[2019-12-27] MEDS: MIRTAZAPINE 15 MG TABLET (FP) PO SCH (21:44)
[2019-12-27] MEDS: QUEtiapine FUMARATE 25 MG TABLET PO SCH (21:44)
[2019-12-27] MEDS: ATORVASTATIN CA 20 MG TABLET (FP) PO SCH (23:55)
[2019-12-28] MEDS: NITROGLYCERIN 25MG/D5W 250ML 25 MG/250 ML ML IVPB SCH (06:51)
[2019-12-28] MEDS: hydrALAZINE HCL 25 MG TABLET (FP) PO SCH ×3 (06:51→21:18)
[2019-12-28] MEDS: FUROSEMIDE 40 MG/4 ML INJECTABLE VIAL IVPUSH SCH ×2 (06:51→16:59)
[2019-12-28] MEDS: INSULIN SLIDING SCALE (NOVOLOG) 1 VIAL SQ SCH ×4 (06:52→21:35)
[2019-12-28] MEDS: LEVOTHYROXINE NA 25 MCG TABLET (FP) PO SCH (06:52)
[2019-12-28] MEDS: LABETALOL HCL 100 MG TABLET (FP) PO SCH ×3 (06:52→21:19)
[2019-12-28] MEDS ORDERED: hydrALAZINE HCL 50 MG TABLET (FP) PO ONE (07:30)
--- NOTE | 2019-12-28 08:30 | PN ---
Progress Note, Physician - Current Medication List Current Medications: Active Medications Acetaminophen (Tylenol -) 1,000 mg PO Q6H PRN PRN Reason: PAIN Last Admin: 12/27/19 21:43 Dose: 1,000 mg Documented by: Al Hydroxide/Mg Hydroxide (Mylanta Oral Suspension -) 30 ml PO Q6H PRN PRN Reason: DYSPEPSIA Atorvastatin Calcium (Lipitor -) 20 mg PO HS [facility] Last Admin: 12/27/19 23:55 Dose: Not Given Documented by: Donepezil HCl (Aricept -) 10 mg PO DAILY [facility] Last Admin: 12/27/19 11:05 Dose: Not Given Documented by: Furosemide (Lasix Injection -) 40 mg IVPUSH BID@0600,1400 [facility] Last Admin: 12/28/19 06:51 Dose: 40 mg Documented by: Heparin Sodium (Porcine) (Heparin -) 5,000 unit SQ BID [facility] Last Admin: 12/27/19 22:01 Dose: 5,000 unit Documented by: Hydralazine HCl (Apresoline Injection -) 20 mg IVPUSH Q6H PRN PRN Reason: HYPERTENSION Last Admin: 12/26/19 12:00 Dose: 10 mg Documented by: Hydralazine HCl (Apresoline -) 75 mg PO TID [facility] Last Admin: 12/28/19 06:51 Dose: Not Given Documented by: Nitroglycerin/Dextrose (Nitroglycerin 25mg/D5w 250ml) 25 mg in 250 mls @ 6 mls/hr IVPB TITR [facility]; Protocol Last Admin: 12/28/19 06:51 Dose: Not Given Documented by: Labetalol HCl 1,000 mg/ (Dextrose) 1,000 mls @ 120 mls/hr IV TITR [facility] Last Admin: 12/27/19 22:02 Dose: Not Given Documented by: Insulin Aspart (Novolog Vial Sliding Scale -) 1 vial SQ ACHS [facility]; Protocol Last Admin: 12/28/19 06:52 Dose: Not Given Documented by: Labetalol HCl (Normodyne -) 300 mg PO TID [facility] Last Admin: 12/28/19 06:52 Dose: Not Given Documented by: Levothyroxine Sodium (Synthroid -) 25 mcg PO DAILY@0700 [facility] Last Admin: 12/28/19 06:52 Dose: 25 mcg Documented by: Losartan Potassium (Cozaar -) 100 mg PO DAILY [facility] Memantine (Namenda -) 10 mg PO BID [facility] Last Admin: 12/27/19 23:55 Dose: Not Given Documented by: Mirtazapine (Remeron -) 15 mg PO [facility] Last Admin: 12/27/19 21:44 Dose: 15 mg Documented by: Multivitamins/Minerals/Vitamin C (Tab-A-Vit -) 1 tab PO DAILY [facility] Nifedipine (Procardia Xl -) 90 mg PO DAILY [facility] Pantoprazole Sodium (Protonix -) 20 mg PO DAILY [facility] Polysaccharide Iron Complex (Niferex-150 -) 150 mg PO DAILY [facility] Quetiapine Fumarate (Seroquel -) 25 mg PO [facility] Last Admin: 12/27/19 21:44 Dose: 25 mg Documented by: Senna/Docusate Sodium (Pericolace -) 2 tablet PO [facility] Last Admin: 12/27/19 23:56 Dose: Not Given Documented by: - Objective Vital Signs: Vital Signs Temperature 97.6 F 12/28/19 07:42 Pulse Rate 69 12/28/19 07:42 Respiratory Rate 18 12/28/19 07:42 Blood Pressure 204/68 H 12/28/19 07:42 O2 Sat by Pulse Oximetry (%) 100 12/28/19 07:43 Cardiovascular: Yes: S1, S2 Respiratory: Yes: Regular, CTA Bilaterally Gastrointestinal: Yes: Normal Bowel Sounds, Soft. No: Tenderness Edema: No Labs: CBC, BMP 12/27/19 10:18 12/27/19 10:18 INR, PTT INR 1.04 (0.83-1.09) 12/27/19 10:18 Assessment/Plan - Problems (1) Acute on chronic diastolic (congestive) heart failure Assessment/Plan: -Cardiology consult -Tele monitoring -Furosemide 40 mg IVP BID -Continue nifedipine 90 mg po daily -Continue labetalol 300 mg po tid -Continue losartan 100 mg po daily -Continue Hydralazine 75 mg po tid -on nitro drip -Low sodium diet Problems reviewed: Yes Code(s): I50.33 - ACUTE ON CHRONIC DIASTOLIC (CONGESTIVE) HEART FAILURE (2) CKD (chronic kidney disease) Assessment/Plan: -Nephrology consult -Cr at baseline -monitor trend Problems reviewed: Yes Code(s): N18.9 - CHRONIC KIDNEY DISEASE, UNSPECIFIED Qualifiers: Chronic kidney disease stage: stage 5, not on chronic dialysis Qualified Code(s): N18.5 - Chronic kidney disease, stage 5 (3) HTN (hypertension) Assessment/Plan: -as above -taking meds is issue Problems reviewed: Yes Code(s): I10 - ESSENTIAL (PRIMARY) HYPERTENSION (4) Weakness Assessment/Plan: -physical therapy -Safety precautions Problems reviewed: Yes Code(s): R53.1 - WEAKNESS (5) Failure to thrive Assessment/Plan: -May need peg placement if unable to swallow or eat. -Worsening dementia Problems reviewed: Yes Code(s): COL5253 - Qualifiers: Failure to thrive age range: in adult Qualified Code(s): R62.7 - Adult failure to thrive (6) Parkinson disease Assessment/Plan: -Neurology consult noted Problems reviewed: Yes Code(s): G20 - PARKINSON'S DISEASE CURRENT SITUATION DISCUSSED WITH LUCAS AND HER DAUGHTER GIOVANNY SINCE PT REFUSES AND SPITS OUT MEDS FREQUENTLY IT WILL BE DIFFICULT TO CONTROL AND MANGE HER CONDITION ESPECIALLY HER BP. PEG WILL BE BEST OPTION TO MANGE PATIENT
[2019-12-28] MEDS: NIFEdipine E.R. 90 MG TABLET PO SCH (09:12)
[2019-12-28] MEDS: LOSARTAN POTASSIUM 50 MG TABLET PO SCH (09:12)
[2019-12-28] MEDS: ACETAMINOPHEN 500 MG TABLET (FP) PO PRN (10:19)
[2019-12-28] MEDS: MEMANTINE HCL 10 MG TABLET (FP) PO SCH ×2 (10:20→21:35)
[2019-12-28] MEDS: DONEPEZIL HCL 10 MG TABLET (FP) PO SCH (10:20)
--- NOTE | 2019-12-28 10:20 | PN ---
Progress Note, [employer] - Note Progress Note: Selected Entries 12/27/19 12/28/19 12/28/19 15:00 02:00 06:00 Breakfast 25% Lunch 25% Temperature 97.8 F 98.4 F Blood Pressure 151/87 183/68 H O2 Sat by Pulse 97 99 Oximetry (%) Oxygen Delivery Method 12/28/19 12/28/19 12/28/19 07:42 07:43 09:18 Breakfast Lunch Temperature 97.6 F Blood Pressure 204/68 H 197/69 H O2 Sat by Pulse 100 100 Oximetry (%) Oxygen Delivery Nasal Cannula Method 12/28/19 10:15 Breakfast 25% Lunch Temperature Blood Pressure O2 Sat by Pulse Oximetry (%) Oxygen Delivery Method Laboratory Tests 12/27/19 10:18 WBC 5.2 Pt accepts po intermittently, taking a long time to swallow, needing liquid wash down to clear oral residue and facilitate swallow onset Intermittent acceptance of meds/PO Pt is a full code. PEG being consider for consistency of providing medication, and to supplement hydration/nutritional needs. Suggest continue PO trials, as tolerated, accepted, desired, with supplemental TF if family agrees.
[2019-12-28] MEDS: HEPARIN NA (PORCINE) 5,000 UNITS/ML 1ML VIAL SQ SCH ×2 (10:21→21:18)
[2019-12-28] MEDS: PANTOPRAZOLE 20 MG TABLET PO SCH (10:29)
[2019-12-28] MEDS: IRON POLYSACCHARIDES 150 MG CAPSULE PO SCH (10:33)
[2019-12-28] MEDS: MULTIVITAMINS (DAILY MVI) TABLET (FP) PO SCH (10:33)
--- NOTE | 2019-12-28 14:06 | PN ---
Progress Note, Physician History of Present Illness: Pt seen and examined at bedside. She is awake but agitated. - Current Medication List Current Medications: Active Medications Acetaminophen (Tylenol -) 1,000 mg PO Q6H PRN PRN Reason: PAIN Last Admin: 12/27/19 21:43 Dose: 1,000 mg Documented by: Al Hydroxide/Mg Hydroxide (Mylanta Oral Suspension -) 30 ml PO Q6H PRN PRN Reason: DYSPEPSIA Atorvastatin Calcium (Lipitor -) 20 mg PO HS [facility] Last Admin: 12/27/19 23:55 Dose: Not Given Documented by: Donepezil HCl (Aricept -) 10 mg PO DAILY [facility] Last Admin: 12/28/19 10:20 Dose: 10 mg Documented by: Furosemide (Lasix Injection -) 40 mg IVPUSH BID@0600,1400 [facility] Last Admin: 12/28/19 06:51 Dose: 40 mg Documented by: Heparin Sodium (Porcine) (Heparin -) 5,000 unit SQ BID [facility] Last Admin: 12/28/19 10:21 Dose: 5,000 unit Documented by: Hydralazine HCl (Apresoline Injection -) 20 mg IVPUSH Q6H PRN PRN Reason: HYPERTENSION Last Admin: 12/26/19 12:00 Dose: 10 mg Documented by: Hydralazine HCl (Apresoline -) 75 mg PO TID [facility] Last Admin: 12/28/19 06:51 Dose: Not Given Documented by: Nitroglycerin/Dextrose (Nitroglycerin 25mg/D5w 250ml) 25 mg in 250 mls @ 6 mls/hr IVPB TITR [facility]; Protocol Last Admin: 12/28/19 06:51 Dose: Not Given Documented by: Labetalol HCl 1,000 mg/ (Dextrose) 1,000 mls @ 120 mls/hr IV TITR [facility] Last Admin: 12/27/19 22:02 Dose: Not Given Documented by: Insulin Aspart (Novolog Vial Sliding Scale -) 1 vial SQ ACHS [facility]; Protocol Last Admin: 12/28/19 11:41 Dose: Not Given Documented by: Labetalol HCl (Normodyne -) 300 mg PO TID [facility] Last Admin: 12/28/19 06:52 Dose: Not Given Documented by: Levothyroxine Sodium (Synthroid -) 25 mcg PO DAILY@0700 [facility] Last Admin: 12/28/19 06:52 Dose: 25 mcg Documented by: Losartan Potassium (Cozaar -) 100 mg PO DAILY [facility] Last Admin: 12/28/19 09:12 Dose: 100 mg Documented by: Memantine (Namenda -) 10 mg PO BID [facility] Last Admin: 12/28/19 10:20 Dose: 10 mg Documented by: Mirtazapine (Remeron -) 15 mg PO HS [facility] Last Admin: 12/27/19 21:44 Dose: 15 mg Documented by: Multivitamins/Minerals/Vitamin C (Tab-A-Vit -) 1 tab PO DAILY [facility] Last Admin: 12/28/19 10:33 Dose: Not Given Documented by: Nifedipine (Procardia Xl -) 90 mg PO DAILY [facility] Last Admin: 12/28/19 09:12 Dose: 90 mg Documented by: Pantoprazole Sodium (Protonix -) 20 mg PO DAILY [facility] Last Admin: 12/28/19 10:29 Dose: Not Given Documented by: Polysaccharide Iron Complex (Niferex-150 -) 150 mg PO DAILY [facility] Last Admin: 12/28/19 10:33 Dose: Not Given Documented by: Quetiapine Fumarate (Seroquel -) 25 mg PO HS [facility] Last Admin: 12/27/19 21:44 Dose: 25 mg Documented by: Senna/Docusate Sodium (Pericolace -) 2 tablet PO [facility] Last Admin: 12/27/19 23:56 Dose: Not Given Documented by: - Objective Vital Signs: Vital Signs Temperature 97.6 F 12/28/19 07:42 Pulse Rate 59 L 12/28/19 11:41 Respiratory Rate 18 12/28/19 09:18 Blood Pressure 120/45 L 12/28/19 11:41 O2 Sat by Pulse Oximetry (%) 100 12/28/19 07:43 Constitutional: Yes: Calm Eyes: Yes: Conjunctiva Clear HENT: Yes: Atraumatic Neck: Yes: Supple Cardiovascular: Yes: S1, S2 Respiratory: Yes: CTA Bilaterally Gastrointestinal: Yes: Normal Bowel Sounds, Soft Genitourinary: Yes: WNL Musculoskeletal: Yes: WNL Edema: No Neurological: Yes: Confusion Labs: CBC, BMP 12/27/19 10:18 12/27/19 10:18 INR, PTT INR 1.04 (0.83-1.09) 12/27/19 10:18 Assessment/Plan Current Medications Generic Name Dose Route Start Last Admin Trade Name Freq PRN Reason Stop Dose Admin Acetaminophen 1,000 mg 12/27/19 20:45 12/27/19 21:43 Tylenol - PO 1,000 mg Q6H PRN Administration PAIN Al Hydroxide/Mg Hydroxide 30 ml 12/27/19 20:45 Mylanta Oral Suspension - PO Q6H PRN DYSPEPSIA Atorvastatin Calcium 20 mg 12/27/19 22:00 12/27/19 23:55 Lipitor - PO Not Given HS [facility] Donepezil HCl 10 mg 12/26/19 10:00 12/28/19 10:20 Aricept - PO 10 mg DAILY [facility] Administration Furosemide 40 mg 12/28/19 06:00 12/28/19 06:51 Lasix Injection - IVPUSH 40 mg BID@0600,1400 [facility] Administration Heparin Sodium (Porcine) 5,000 unit 12/27/19 22:00 12/28/19 10:21 Heparin - SQ 5,000 unit BID [facility] Administration Hydralazine HCl 20 mg 12/25/19 23:32 12/26/19 12:00 Apresoline Injection - IVPUSH 10 mg Q6H PRN Administration HYPERTENSION Hydralazine HCl 75 mg 12/27/19 22:00 12/28/19 06:51 Apresoline - PO Not Given TID [facility] Nitroglycerin/Dextrose 25 mg in 250 mls @ 6 mls/hr 12/26/19 05:30 12/28/19 06:51 Nitroglycerin 25mg/D5w 250ml IVPB Not Given TITR [facility] Protocol 10 MCG/MIN Labetalol HCl 1,000 mg/ 1,000 mls @ 120 mls/hr 12/27/19 20:45 12/27/19 22:02 Dextrose IV Not Given TITR [facility] 2 MG/MIN Insulin Aspart 1 vial 12/27/19 22:00 12/28/19 11:41 Novolog Vial Sliding Scale - SQ Not Given ACHS [facility] Protocol Labetalol HCl 300 mg 12/27/19 22:00 12/28/19 06:52 Normodyne - PO Not Given TID [facility] Levothyroxine Sodium 25 mcg 12/28/19 07:00 12/28/19 06:52 Synthroid - PO 25 mcg DAILY@0700 [facility] Administration Losartan Potassium 100 mg 12/28/19 10:00 12/28/19 09:12 Cozaar - PO 100 mg DAILY [facility] Administration Memantine 10 mg 12/25/19 22:00 12/28/19 10:20 Namenda - PO 10 mg BID [facility] Administration Mirtazapine 15 mg 12/25/19 18:43 12/27/19 21:44 Remeron - PO 15 mg HS [facility] Administration Multivitamins/Minerals/Vitamin C 1 tab 12/28/19 10:00 12/28/19 10:33 Tab-A-Vit - PO Not Given DAILY [facility] Nifedipine 90 mg 12/28/19 10:00 12/28/19 09:12 Procardia Xl - PO 90 mg DAILY [facility] Administration Pantoprazole Sodium 20 mg 12/28/19 10:00 12/28/19 10:29 Protonix - PO Not Given DAILY [facility] Polysaccharide Iron Complex 150 mg 12/28/19 10:00 12/28/19 10:33 Niferex-150 - PO Not Given DAILY [facility] Quetiapine Fumarate 25 mg 12/24/19 22:00 12/27/19 21:44 Seroquel - PO 25 mg HS [facility] Administration Senna/Docusate Sodium 2 tablet 12/27/19 22:00 12/27/19 23:56 Pericolace - PO Not Given HS [facility] Impression 1. JASPER 2. CKD 3. HLD 4. diverticulosis 5. HTN 6. DM 7. proteinuria 8. hypoalbuminemia 9. UTI 10. pleural effusion 11. chf 12. pericardial effusion without tamponade 13. fluid overload Impression - cont to monitor renal function - can change lasix to PO - bp remains labile - repeat labs in am - discuss GOC with family - cont arb - avoid nsaids - avoid nephrotoxins
[2019-12-28] MEDS ORDERED: PT OWN MED DRAWER 7, Y5N ONE (17:11)
[2019-12-28] MEDS: QUEtiapine FUMARATE 25 MG TABLET PO SCH (21:19)
[2019-12-28] MEDS: ATORVASTATIN CA 20 MG TABLET (FP) PO SCH (21:35)
[2019-12-28] MEDS: MIRTAZAPINE 15 MG TABLET (FP) PO SCH (21:36)
[2019-12-28] MEDS: SENNOSIDES/DOCUSATE COMBO (SENNA PLUS) TABLET (UD) PO SCH (21:36)
[2019-12-29] MEDS: INSULIN SLIDING SCALE (NOVOLOG) 1 VIAL SQ SCH ×4 (07:12→21:37)
[2019-12-29] MEDS: FUROSEMIDE 40 MG/4 ML INJECTABLE VIAL IVPUSH SCH ×2 (07:12→13:13)
[2019-12-29] MEDS: hydrALAZINE HCL 25 MG TABLET (FP) PO SCH ×3 (07:12→21:35)
[2019-12-29] MEDS: LABETALOL HCL 100 MG TABLET (FP) PO SCH ×3 (07:12→21:36)
[2019-12-29] MEDS: LEVOTHYROXINE NA 25 MCG TABLET (FP) PO SCH (07:13)
[2019-12-29 08:34] LABS: ALBUMIN 2.7 g/dl (3.4-5.0); BILIRUBIN,TOTAL 0.5 mg/dL (0.2-1); BLOOD UREA NITROGEN 23.8 mg/dL (7-18); CALCIUM 8.9 mg/dL (8.5-10.1); CREATININE 1.4 mg/dL (0.55-1.3); POTASSIUM 3.5 mmol/L (3.5-5.1)
[2019-12-29] MEDS ORDERED: PT OWN MED DRAWER 7, Y5N ONE (09:14)
[2019-12-29] MEDS: LOSARTAN POTASSIUM 50 MG TABLET PO SCH (09:19)
[2019-12-29] MEDS: DONEPEZIL HCL 10 MG TABLET (FP) PO SCH (09:20)
[2019-12-29] MEDS: NIFEdipine E.R. 90 MG TABLET PO SCH (09:20)
[2019-12-29] MEDS: MEMANTINE HCL 10 MG TABLET (FP) PO SCH ×2 (09:20→21:36)
[2019-12-29] MEDS: MULTIVITAMINS (DAILY MVI) TABLET (FP) PO SCH (09:22)
[2019-12-29] MEDS: PANTOPRAZOLE 20 MG TABLET PO SCH (09:22)
[2019-12-29] MEDS: IRON POLYSACCHARIDES 150 MG CAPSULE PO SCH (09:23)
[2019-12-29] MEDS: HEPARIN NA (PORCINE) 5,000 UNITS/ML 1ML VIAL SQ SCH ×2 (09:24→21:38)
--- NOTE | 2019-12-29 09:55 | PN ---
Progress Note, Physician - Current Medication List Current Medications: Active Medications Acetaminophen (Tylenol -) 1,000 mg PO Q6H PRN PRN Reason: PAIN Last Admin: 12/27/19 21:43 Dose: 1,000 mg Documented by: Al Hydroxide/Mg Hydroxide (Mylanta Oral Suspension -) 30 ml PO Q6H PRN PRN Reason: DYSPEPSIA Atorvastatin Calcium (Lipitor -) 20 mg PO HS [facility] Last Admin: 12/28/19 21:35 Dose: Not Given Documented by: Donepezil HCl (Aricept -) 10 mg PO DAILY [facility] Last Admin: 12/29/19 09:20 Dose: 10 mg Documented by: Furosemide (Lasix Injection -) 40 mg IVPUSH BID@0600,1400 [facility] Last Admin: 12/29/19 07:12 Dose: 40 mg Documented by: Heparin Sodium (Porcine) (Heparin -) 5,000 unit SQ BID [facility] Last Admin: 12/29/19 09:24 Dose: 5,000 unit Documented by: Hydralazine HCl (Apresoline Injection -) 20 mg IVPUSH Q6H PRN PRN Reason: HYPERTENSION Last Admin: 12/26/19 12:00 Dose: 10 mg Documented by: Hydralazine HCl (Apresoline -) 75 mg PO TID [facility] Last Admin: 12/29/19 07:12 Dose: Not Given Documented by: Nitroglycerin/Dextrose (Nitroglycerin 25mg/D5w 250ml) 25 mg in 250 mls @ 6 mls/hr IVPB TITR [facility]; Protocol Last Admin: 12/28/19 06:51 Dose: Not Given Documented by: Labetalol HCl 1,000 mg/ (Dextrose) 1,000 mls @ 120 mls/hr IV TITR [facility] Last Admin: 12/27/19 22:02 Dose: Not Given Documented by: Insulin Aspart (Novolog Vial Sliding Scale -) 1 vial SQ ACHS [facility]; Protocol Last Admin: 12/29/19 07:12 Dose: Not Given Documented by: Labetalol HCl (Normodyne -) 300 mg PO TID [facility] Last Admin: 12/29/19 07:12 Dose: Not Given Documented by: Levothyroxine Sodium (Synthroid -) 25 mcg PO DAILY@0700 [facility] Last Admin: 12/29/19 07:13 Dose: Not Given Documented by: Losartan Potassium (Cozaar -) 100 mg PO DAILY [facility] Last Admin: 12/29/19 09:19 Dose: 100 mg Documented by: Memantine (Namenda -) 10 mg PO BID [facility] Last Admin: 12/29/19 09:20 Dose: 10 mg Documented by: Mirtazapine (Remeron -) 15 mg PO [facility] Last Admin: 12/28/19 21:36 Dose: Not Given Documented by: Multivitamins/Minerals/Vitamin C (Tab-A-Vit -) 1 tab PO DAILY [facility] Last Admin: 12/29/19 09:22 Dose: Not Given Documented by: Nifedipine (Procardia Xl -) 90 mg PO DAILY [facility] Last Admin: 12/29/19 09:20 Dose: 90 mg Documented by: Pantoprazole Sodium (Protonix -) 20 mg PO DAILY [facility] Last Admin: 12/29/19 09:22 Dose: Not Given Documented by: Polysaccharide Iron Complex (Niferex-150 -) 150 mg PO DAILY [facility] Last Admin: 12/29/19 09:23 Dose: Not Given Documented by: Quetiapine Fumarate (Seroquel -) 25 mg PO [facility] Last Admin: 12/28/19 21:19 Dose: 25 mg Documented by: Senna/Docusate Sodium (Pericolace -) 2 tablet PO [facility] Last Admin: 12/28/19 21:36 Dose: Not Given Documented by: - Objective Vital Signs: Vital Signs Temperature 98 F 12/29/19 09:18 Pulse Rate 70 12/29/19 09:18 Respiratory Rate 18 12/29/19 09:18 Blood Pressure 179/80 H 12/29/19 09:18 O2 Sat by Pulse Oximetry (%) 100 12/29/19 09:18 Cardiovascular: Yes: S1, S2 Respiratory: Yes: Regular, CTA Bilaterally Gastrointestinal: Yes: Normal Bowel Sounds, Soft. No: Tenderness Edema: No Labs: CBC, BMP 12/27/19 10:18 12/29/19 07:05 INR, PTT INR 1.04 (0.83-1.09) 12/27/19 10:18 Assessment/Plan - Problems (1) Acute on chronic diastolic (congestive) heart failure Assessment/Plan: -Cardiology consult -Tele monitoring -Furosemide 40 mg IVP BID -Continue nifedipine 90 mg po daily -Continue labetalol 300 mg po tid -Continue losartan 100 mg po daily -Continue Hydralazine 75 mg po tid -on nitro drip -Low sodium diet Problems reviewed: Yes Code(s): I50.33 - ACUTE ON CHRONIC DIASTOLIC (CONGESTIVE) HEART FAILURE (2) CKD (chronic kidney disease) Assessment/Plan: -Nephrology consult -Cr at baseline -monitor trend Problems reviewed: Yes Code(s): N18.9 - CHRONIC KIDNEY DISEASE, UNSPECIFIED Qualifiers: Chronic kidney disease stage: stage 5, not on chronic dialysis Qualified Code(s): N18.5 - Chronic kidney disease, stage 5 (3) HTN (hypertension) Assessment/Plan: -as above -taking meds is issue Problems reviewed: Yes Code(s): I10 - ESSENTIAL (PRIMARY) HYPERTENSION (4) Weakness Assessment/Plan: -physical therapy -Safety precautions Problems reviewed: Yes Code(s): R53.1 - WEAKNESS (5) Failure to thrive Assessment/Plan: -May need peg placement if unable to swallow or eat. -Worsening dementia Problems reviewed: Yes Code(s): [id number] - Qualifiers: Failure to thrive age range: in adult Qualified Code(s): R62.7 - Adult failure to thrive (6) Parkinson disease Assessment/Plan: -Neurology consult noted Problems reviewed: Yes Code(s): G20 - PARKINSON'S DISEASE CURRENT SITUATION DISCUSSED WITH LUCAS AND HER DAUGHTER GIOVANNY SINCE PT REFUSES AND SPITS OUT MEDS FREQUENTLY IT WILL BE DIFFICULT TO CONTROL AND MANGE HER CONDITION ESPECIALLY HER BP. PEG WILL BE BEST OPTION TO MANGE PATIENT
--- NOTE | 2019-12-29 10:33 | PN ---
Progress Note, HOISTER - Note Progress Note: Selected Entries 12/28/19 12/28/19 12/28/19 10:15 13:57 22:30 Breakfast 25% Diet Tolerated Poor Fair Fair Lunch 25% Supper 25% Temperature Pulse Rate Blood Pressure O2 Sat by Pulse Oximetry (%) 12/29/19 12/29/19 12/29/19 02:00 06:00 09:18 Breakfast Diet Tolerated Lunch Supper Temperature 98.1 F 97.8 F 98 F Pulse Rate 68 72 70 Blood Pressure 155/84 168/95 179/80 H O2 Sat by Pulse 98 99 100 Oximetry (%) 12/29/19 10:13 Breakfast 0 Diet Tolerated Refused Lunch Supper Temperature Pulse Rate Blood Pressure O2 Sat by Pulse Oximetry (%) Pt accepts po intermittently, taking a long time to swallow, needing liquid wash down to clear oral residue and facilitate swallow onset Intermittent acceptance of meds/PO Pt is a full code. PEG being consider for consistency of providing medication, and to supplement hydration/nutritional needs. Followed by Palliative care. Suggest continue PO trials, as tolerated, accepted, desired, with supplemental TF if family agrees.
--- NOTE | 2019-12-29 14:21 | PN ---
Progress Note, Physician History of Present Illness: Pt seen and examined at bedside. She is awake but confused. She denies shortness of breath. - Current Medication List Current Medications: Active Medications Acetaminophen (Tylenol -) 1,000 mg PO Q6H PRN PRN Reason: PAIN Last Admin: 12/27/19 21:43 Dose: 1,000 mg Documented by: Al Hydroxide/Mg Hydroxide (Mylanta Oral Suspension -) 30 ml PO Q6H PRN PRN Reason: DYSPEPSIA Atorvastatin Calcium (Lipitor -) 20 mg PO HS [facility] Last Admin: 12/28/19 21:35 Dose: Not Given Documented by: Donepezil HCl (Aricept -) 10 mg PO DAILY [facility] Last Admin: 12/29/19 09:20 Dose: 10 mg Documented by: Furosemide (Lasix Injection -) 40 mg IVPUSH BID@0600,1400 [facility] Last Admin: 12/29/19 13:13 Dose: 40 mg Documented by: Heparin Sodium (Porcine) (Heparin -) 5,000 unit SQ BID [facility] Last Admin: 12/29/19 09:24 Dose: 5,000 unit Documented by: Hydralazine HCl (Apresoline Injection -) 20 mg IVPUSH Q6H PRN PRN Reason: HYPERTENSION Last Admin: 12/26/19 12:00 Dose: 10 mg Documented by: Hydralazine HCl (Apresoline -) 75 mg PO TID [facility] Last Admin: 12/29/19 13:12 Dose: 75 mg Documented by: Nitroglycerin/Dextrose (Nitroglycerin 25mg/D5w 250ml) 25 mg in 250 mls @ 6 mls/hr IVPB TITR [facility]; Protocol Last Admin: 12/28/19 06:51 Dose: Not Given Documented by: Labetalol HCl 1,000 mg/ (Dextrose) 1,000 mls @ 120 mls/hr IV TITR [facility] Last Admin: 12/27/19 22:02 Dose: Not Given Documented by: Insulin Aspart (Novolog Vial Sliding Scale -) 1 vial SQ ACHS [facility]; Protocol Last Admin: 12/29/19 11:48 Dose: Not Given Documented by: Labetalol HCl (Normodyne -) 300 mg PO TID [facility] Last Admin: 12/29/19 13:12 Dose: 300 mg Documented by: Levothyroxine Sodium (Synthroid -) 25 mcg PO DAILY@0700 [facility] Last Admin: 12/29/19 07:13 Dose: Not Given Documented by: Losartan Potassium (Cozaar -) 100 mg PO DAILY [facility] Last Admin: 12/29/19 09:19 Dose: 100 mg Documented by: Memantine (Namenda -) 10 mg PO BID [facility] Last Admin: 12/29/19 09:20 Dose: 10 mg Documented by: Mirtazapine (Remeron -) 15 mg PO HS [facility] Last Admin: 12/28/19 21:36 Dose: Not Given Documented by: Multivitamins/Minerals/Vitamin C (Tab-A-Vit -) 1 tab PO DAILY [facility] Last Admin: 12/29/19 09:22 Dose: Not Given Documented by: Nifedipine (Procardia Xl -) 90 mg PO DAILY [facility] Last Admin: 12/29/19 09:20 Dose: 90 mg Documented by: Pantoprazole Sodium (Protonix -) 20 mg PO DAILY [facility] Last Admin: 12/29/19 09:22 Dose: Not Given Documented by: Polysaccharide Iron Complex (Niferex-150 -) 150 mg PO DAILY [facility] Last Admin: 12/29/19 09:23 Dose: Not Given Documented by: Quetiapine Fumarate (Seroquel -) 25 mg PO [facility] Last Admin: 12/28/19 21:19 Dose: 25 mg Documented by: Senna/Docusate Sodium (Pericolace -) 2 tablet PO [facility] Last Admin: 12/28/19 21:36 Dose: Not Given Documented by: - Objective Vital Signs: Vital Signs Temperature 97.9 F 12/29/19 13:58 Pulse Rate 65 12/29/19 13:58 Respiratory Rate 18 12/29/19 13:58 Blood Pressure 130/51 L 12/29/19 13:58 O2 Sat by Pulse Oximetry (%) 97 12/29/19 13:58 Constitutional: Yes: Calm Eyes: Yes: Conjunctiva Clear HENT: Yes: Atraumatic Neck: Yes: Supple Cardiovascular: Yes: S1, S2 Respiratory: Yes: CTA Bilaterally Gastrointestinal: Yes: Soft Genitourinary: Yes: WNL Musculoskeletal: Yes: WNL Edema: No Neurological: Yes: Confusion Labs: CBC, BMP 12/27/19 10:18 12/29/19 07:05 INR, PTT INR 1.04 (0.83-1.09) 12/27/19 10:18 Assessment/Plan Current Medications Generic Name Dose Route Start Last Admin Trade Name Freq PRN Reason Stop Dose Admin Acetaminophen 1,000 mg 12/27/19 20:45 12/27/19 21:43 Tylenol - PO 1,000 mg Q6H PRN Administration PAIN Al Hydroxide/Mg Hydroxide 30 ml 12/27/19 20:45 Mylanta Oral Suspension - PO Q6H PRN DYSPEPSIA Atorvastatin Calcium 20 mg 12/27/19 22:00 12/28/19 21:35 Lipitor - PO Not Given HS [facility] Donepezil HCl 10 mg 12/26/19 10:00 12/29/19 09:20 Aricept - PO 10 mg DAILY [facility] Administration Furosemide 40 mg 12/28/19 06:00 12/29/19 13:13 Lasix Injection - IVPUSH 40 mg BID@0600,1400 [facility] Administration Heparin Sodium (Porcine) 5,000 unit 12/27/19 22:00 12/29/19 09:24 Heparin - SQ 5,000 unit BID [facility] Administration Hydralazine HCl 20 mg 12/25/19 23:32 12/26/19 12:00 Apresoline Injection - IVPUSH 10 mg Q6H PRN Administration HYPERTENSION Hydralazine HCl 75 mg 12/27/19 22:00 12/29/19 13:12 Apresoline - PO 75 mg TID [facility] Administration Nitroglycerin/Dextrose 25 mg in 250 mls @ 6 mls/hr 12/26/19 05:30 12/28/19 06:51 Nitroglycerin 25mg/D5w 250ml IVPB Not Given TITR [facility] Protocol 10 MCG/MIN Labetalol HCl 1,000 mg/ 1,000 mls @ 120 mls/hr 12/27/19 20:45 12/27/19 22:02 Dextrose IV Not Given TITR [facility] 2 MG/MIN Insulin Aspart 1 vial 12/27/19 22:00 12/29/19 11:48 Novolog Vial Sliding Scale - SQ Not Given ACHS [facility] Protocol Labetalol HCl 300 mg 12/27/19 22:00 12/29/19 13:12 Normodyne - PO 300 mg TID [facility] Administration Levothyroxine Sodium 25 mcg 12/28/19 07:00 12/29/19 07:13 Synthroid - PO Not Given DAILY@0700 [facility] Losartan Potassium 100 mg 12/28/19 10:00 12/29/19 09:19 Cozaar - PO 100 mg DAILY [facility] Administration Memantine 10 mg 12/25/19 22:00 12/29/19 09:20 Namenda - PO 10 mg BID [facility] Administration Mirtazapine 15 mg 12/25/19 18:43 12/28/19 21:36 Remeron - PO Not Given HS [facility] Multivitamins/Minerals/Vitamin C 1 tab 12/28/19 10:00 12/29/19 09:22 Tab-A-Vit - PO Not Given DAILY [facility] Nifedipine 90 mg 12/28/19 10:00 12/29/19 09:20 Procardia Xl - PO 90 mg DAILY [facility] Administration Pantoprazole Sodium 20 mg 12/28/19 10:00 12/29/19 09:22 Protonix - PO Not Given DAILY [facility] Polysaccharide Iron Complex 150 mg 12/28/19 10:00 12/29/19 09:23 Niferex-150 - PO Not Given DAILY [facility] Quetiapine Fumarate 25 mg 12/24/19 22:00 12/28/19 21:19 Seroquel - PO 25 mg HS [facility] Administration Senna/Docusate Sodium 2 tablet 12/27/19 22:00 12/28/19 21:36 Pericolace - PO Not Given HS [facility] Impression 1. JASPER 2. CKD 3. HLD 4. diverticulosis 5. HTN 6. DM 7. proteinuria 8. hypoalbuminemia 9. UTI 10. pleural effusion 11. chf 12. pericardial effusion without tamponade 13. fluid overload Impression - cont to monitor bp - bp remains labile - it has been difficult to get steady state of bp meds - cont lasix, can decrease dose - monitor volume status - discuss GOC with family - cont arb - avoid nsaids - avoid nephrotoxins
[2019-12-29] MEDS: ATORVASTATIN CA 20 MG TABLET (FP) PO SCH (21:36)
[2019-12-29] MEDS: MIRTAZAPINE 15 MG TABLET (FP) PO SCH (21:36)
[2019-12-29] MEDS: QUEtiapine FUMARATE 25 MG TABLET PO SCH (21:37)
[2019-12-29] MEDS: SENNOSIDES/DOCUSATE COMBO (SENNA PLUS) TABLET (UD) PO SCH (21:37)
[2019-12-29] MEDS: ACETAMINOPHEN 500 MG TABLET (FP) PO PRN (23:40)
[2019-12-30] MEDS: FUROSEMIDE 40 MG/4 ML INJECTABLE VIAL IVPUSH SCH ×2 (06:19→14:08)
[2019-12-30] MEDS: hydrALAZINE HCL 25 MG TABLET (FP) PO SCH ×3 (06:19→22:03)
[2019-12-30] MEDS: LABETALOL HCL 100 MG TABLET (FP) PO SCH ×3 (06:20→22:17)
[2019-12-30] MEDS: INSULIN SLIDING SCALE (NOVOLOG) 1 VIAL SQ SCH ×4 (06:20→22:04)
[2019-12-30] MEDS: LEVOTHYROXINE NA 25 MCG TABLET (FP) PO SCH (06:20)
[2019-12-30] MEDS ORDERED: PT OWN MED DRAWER 7, Y5N ONE (09:08)
[2019-12-30] MEDS: NIFEdipine E.R. 90 MG TABLET PO SCH (09:10)
[2019-12-30] MEDS: LOSARTAN POTASSIUM 50 MG TABLET PO SCH (09:10)
[2019-12-30] MEDS: DONEPEZIL HCL 10 MG TABLET (FP) PO SCH (09:13)
[2019-12-30] MEDS: IRON POLYSACCHARIDES 150 MG CAPSULE PO SCH (09:14)
[2019-12-30] MEDS: PANTOPRAZOLE 20 MG TABLET PO SCH (09:14)
[2019-12-30] MEDS: MULTIVITAMINS (DAILY MVI) TABLET (FP) PO SCH (09:14)
[2019-12-30] MEDS: MEMANTINE HCL 10 MG TABLET (FP) PO SCH ×2 (09:14→22:03)
[2019-12-30] MEDS: HEPARIN NA (PORCINE) 5,000 UNITS/ML 1ML VIAL SQ SCH ×2 (09:14→22:03)
[2019-12-30] MEDS: ACETAMINOPHEN 500 MG TABLET (FP) PO PRN ×2 (09:15→22:43)
--- NOTE | 2019-12-30 14:16 | PN ---
Progress Note, Physician Chief Complaint: CHF exacerbation History of Present Illness: 79 year old female with recurrent admissions for CHF, this being her 3rd admission within this month for CHF exacerbation, came in to [facility] ER on 12/19/19 with SOB, weakness, BLLE edema. Started on nitro drip upon admission for SBP>200 mmHg, tapered off and restarted on PO meds. BP labile Awaiting PEG placement by IR early next week - Current Medication List Current Medications: Active Medications Acetaminophen (Tylenol -) 1,000 mg PO Q6H PRN PRN Reason: PAIN Last Admin: 12/30/19 09:15 Dose: 1,000 mg Documented by: Al Hydroxide/Mg Hydroxide (Mylanta Oral Suspension -) 30 ml PO Q6H PRN PRN Reason: DYSPEPSIA Atorvastatin Calcium (Lipitor -) 20 mg PO HS [facility] Last Admin: 12/29/19 21:36 Dose: 20 mg Documented by: Donepezil HCl (Aricept -) 10 mg PO DAILY [facility] Last Admin: 12/30/19 09:13 Dose: 10 mg Documented by: Furosemide (Lasix Injection -) 40 mg IVPUSH BID@0600,1400 [facility] Last Admin: 12/30/19 14:08 Dose: 40 mg Documented by: Heparin Sodium (Porcine) (Heparin -) 5,000 unit SQ BID [facility] Last Admin: 12/30/19 09:14 Dose: 5,000 unit Documented by: Hydralazine HCl (Apresoline -) 75 mg PO TID [facility] Last Admin: 12/30/19 14:07 Dose: 75 mg Documented by: Insulin Aspart (Novolog Vial Sliding Scale -) 1 vial SQ [facility]; Protocol Last Admin: 12/30/19 11:20 Dose: Not Given Documented by: Labetalol HCl (Normodyne -) 300 mg PO TID [facility] Last Admin: 12/30/19 06:20 Dose: 300 mg Documented by: Levothyroxine Sodium (Synthroid -) 25 mcg PO DAILY@0700 [facility] Last Admin: 12/30/19 06:20 Dose: 25 mcg Documented by: Losartan Potassium (Cozaar -) 100 mg PO DAILY [facility] Last Admin: 12/30/19 09:10 Dose: 100 mg Documented by: Memantine (Namenda -) 10 mg PO BID [facility] Last Admin: 12/30/19 09:14 Dose: 10 mg Documented by: Mirtazapine (Remeron -) 15 mg PO [facility] Last Admin: 12/29/19 21:36 Dose: 15 mg Documented by: Multivitamins/Minerals/Vitamin C (Tab-A-Vit -) 1 tab PO DAILY [facility] Last Admin: 12/30/19 09:14 Dose: 1 tab Documented by: Nifedipine (Procardia Xl -) 90 mg PO DAILY [facility] Last Admin: 12/30/19 09:10 Dose: 90 mg Documented by: Pantoprazole Sodium (Protonix -) 20 mg PO DAILY [facility] Last Admin: 12/30/19 09:14 Dose: 20 mg Documented by: Polysaccharide Iron Complex (Niferex-150 -) 150 mg PO DAILY [facility] Last Admin: 12/30/19 09:14 Dose: 150 mg Documented by: Quetiapine Fumarate (Seroquel -) 25 mg PO [facility] Last Admin: 12/29/19 21:37 Dose: 25 mg Documented by: Senna/Docusate Sodium (Pericolace -) 2 tablet PO [facility] Last Admin: 12/29/19 21:37 Dose: 2 tablet Documented by: - Objective Vital Signs: Vital Signs Temperature 98.5 F 12/30/19 10:00 Pulse Rate 75 12/30/19 10:00 Respiratory Rate 18 12/30/19 10:00 Blood Pressure 112/79 12/30/19 10:00 O2 Sat by Pulse Oximetry (%) 100 12/30/19 10:00 Constitutional: Yes: Well Nourished, No Distress, Calm Cardiovascular: Yes: Regular Rate and Rhythm Respiratory: Yes: Regular, CTA Bilaterally Gastrointestinal: Yes: Normal Bowel Sounds, Soft Genitourinary: Yes: Incontinence Musculoskeletal: Yes: Muscle Weakness Extremities: Yes: WNL Edema: No Peripheral Pulses WNL: Yes Neurological: Yes: Alert, Confusion, Pre-Existing Deficit Psychiatric: Yes: Alert Labs: CBC, BMP 12/27/19 10:18 12/29/19 07:05 INR, PTT INR 1.04 (0.83-1.09) 12/27/19 10:18 Problem List - Problems (1) Acute on chronic diastolic (congestive) heart failure Assessment/Plan: -Cardiology consult -Tele monitoring -Furosemide 40 mg IVP BID -Continue nifedipine 90 mg po daily -Continue labetalol 300 mg po tid -Continue losartan 100 mg po daily -Continue Hydralazine 75 mg po tid -Low sodium diet Problems reviewed: Yes Code(s): I50.33 - ACUTE ON CHRONIC DIASTOLIC (CONGESTIVE) HEART FAILURE (2) CKD (chronic kidney disease) Assessment/Plan: -Nephrology consult -Cr at baseline -monitor trend Problems reviewed: Yes Code(s): N18.9 - CHRONIC KIDNEY DISEASE, UNSPECIFIED Qualifiers: Chronic kidney disease stage: stage 5, not on chronic dialysis Qualified Code(s): N18.5 - Chronic kidney disease, stage 5 (3) HTN (hypertension) Assessment/Plan: -as above Problems reviewed: Yes Code(s): I10 - ESSENTIAL (PRIMARY) HYPERTENSION (4) Weakness Assessment/Plan: -physical therapy -Safety precautions Problems reviewed: Yes Code(s): R53.1 - WEAKNESS (5) Failure to thrive Assessment/Plan: -PEG placement next week -ASA on hold -Worsening dementia Problems reviewed: Yes Code(s): [id number] - Qualifiers: Failure to thrive age range: in adult Qualified Code(s): R62.7 - Adult failure to thrive (6) Parkinson disease Assessment/Plan: -Neurology consult appreciated Problems reviewed: Yes Code(s): G20 - PARKINSON'S DISEASE Assessment/Plan See problem list
[2019-12-30] MEDS: QUEtiapine FUMARATE 25 MG TABLET PO SCH (22:02)
[2019-12-30] MEDS: MIRTAZAPINE 15 MG TABLET (FP) PO SCH (22:03)
[2019-12-30] MEDS: ATORVASTATIN CA 20 MG TABLET (FP) PO SCH (22:17)
[2019-12-30] MEDS: SENNOSIDES/DOCUSATE COMBO (SENNA PLUS) TABLET (UD) PO SCH (22:18)
[2019-12-31] MEDS: INSULIN SLIDING SCALE (NOVOLOG) 1 VIAL SQ SCH ×4 (06:19→21:42)
[2019-12-31] MEDS: hydrALAZINE HCL 25 MG TABLET (FP) PO SCH ×3 (06:25→21:41)
[2019-12-31] MEDS: LABETALOL HCL 100 MG TABLET (FP) PO SCH ×3 (06:25→21:41)
[2019-12-31] MEDS: FUROSEMIDE 40 MG/4 ML INJECTABLE VIAL IVPUSH SCH ×2 (06:25→14:50)
[2019-12-31] MEDS: LEVOTHYROXINE NA 25 MCG TABLET (FP) PO SCH (06:25)
[2019-12-31] MEDS ORDERED: PT OWN MED DRAWER 7, Y5N ONE (08:42)
[2019-12-31] MEDS: NIFEdipine E.R. 90 MG TABLET PO SCH (09:07)
[2019-12-31] MEDS: LOSARTAN POTASSIUM 50 MG TABLET PO SCH (09:07)
[2019-12-31] MEDS: DONEPEZIL HCL 10 MG TABLET (FP) PO SCH (09:16)
[2019-12-31] MEDS: MEMANTINE HCL 10 MG TABLET (FP) PO SCH ×2 (09:16→21:42)
[2019-12-31] MEDS: IRON POLYSACCHARIDES 150 MG CAPSULE PO SCH (09:16)
[2019-12-31] MEDS: MULTIVITAMINS (DAILY MVI) TABLET (FP) PO SCH (09:16)
[2019-12-31] MEDS: PANTOPRAZOLE 20 MG TABLET PO SCH (09:18)
[2019-12-31] MEDS: HEPARIN NA (PORCINE) 5,000 UNITS/ML 1ML VIAL SQ SCH ×2 (09:18→22:24)
[2019-12-31] MEDS: ACETAMINOPHEN 500 MG TABLET (FP) PO PRN (11:08)
--- NOTE | 2019-12-31 14:43 | PN ---
Progress Note, Physician Chief Complaint: CHF exacerbation History of Present Illness: 79 year old female with recurrent admissions for CHF, this being her 3rd admission within this month for CHF exacerbation, came in to [facility] ER on 12/19/19 with SOB, weakness, BLLE edema. Started on nitro drip upon admission for SBP>200 mmHg, tapered off and restarted on PO meds. BP labile Awaiting PEG placement by IR early next week - Current Medication List Current Medications: Active Medications Acetaminophen (Tylenol -) 1,000 mg PO Q6H PRN PRN Reason: PAIN Last Admin: 12/31/19 11:08 Dose: 1,000 mg Documented by: Al Hydroxide/Mg Hydroxide (Mylanta Oral Suspension -) 30 ml PO Q6H PRN PRN Reason: DYSPEPSIA Atorvastatin Calcium (Lipitor -) 20 mg PO HS [facility] Last Admin: 12/30/19 22:17 Dose: 20 mg Documented by: Donepezil HCl (Aricept -) 10 mg PO DAILY [facility] Last Admin: 12/31/19 09:16 Dose: 10 mg Documented by: Furosemide (Lasix Injection -) 40 mg IVPUSH BID@0600,1400 [facility] Last Admin: 12/31/19 06:25 Dose: 40 mg Documented by: Heparin Sodium (Porcine) (Heparin -) 5,000 unit SQ BID [facility] Last Admin: 12/31/19 09:18 Dose: 5,000 unit Documented by: Hydralazine HCl (Apresoline -) 75 mg PO TID [facility] Last Admin: 12/31/19 06:25 Dose: 75 mg Documented by: Insulin Aspart (Novolog Vial Sliding Scale -) 1 vial SQ [facility]; Protocol Last Admin: 12/31/19 11:52 Dose: Not Given Documented by: Labetalol HCl (Normodyne -) 300 mg PO TID [facility] Last Admin: 12/31/19 06:25 Dose: 300 mg Documented by: Levothyroxine Sodium (Synthroid -) 25 mcg PO DAILY@0700 [facility] Last Admin: 12/31/19 06:25 Dose: 25 mcg Documented by: Losartan Potassium (Cozaar -) 100 mg PO DAILY [facility] Last Admin: 12/31/19 09:07 Dose: 100 mg Documented by: Memantine (Namenda -) 10 mg PO BID [facility] Last Admin: 12/31/19 09:16 Dose: 10 mg Documented by: Mirtazapine (Remeron -) 15 mg PO [facility] Last Admin: 12/30/19 22:03 Dose: 15 mg Documented by: Multivitamins/Minerals/Vitamin C (Tab-A-Vit -) 1 tab PO DAILY [facility] Last Admin: 12/31/19 09:16 Dose: 1 tab Documented by: Nifedipine (Procardia Xl -) 90 mg PO DAILY [facility] Last Admin: 12/31/19 09:07 Dose: 90 mg Documented by: Pantoprazole Sodium (Protonix -) 20 mg PO DAILY [facility] Last Admin: 12/31/19 09:18 Dose: 20 mg Documented by: Polysaccharide Iron Complex (Niferex-150 -) 150 mg PO DAILY [facility] Last Admin: 12/31/19 09:16 Dose: 150 mg Documented by: Quetiapine Fumarate (Seroquel -) 25 mg PO [facility] Last Admin: 12/30/19 22:02 Dose: 25 mg Documented by: Senna/Docusate Sodium (Pericolace -) 2 tablet PO [facility] Last Admin: 12/30/19 22:18 Dose: 2 tablet Documented by: - Objective Vital Signs: Vital Signs Temperature 98.3 F 12/31/19 13:53 Pulse Rate 65 12/31/19 13:53 Respiratory Rate 16 12/31/19 13:53 Blood Pressure 148/54 L 12/31/19 13:53 O2 Sat by Pulse Oximetry (%) 100 12/31/19 10:20 Constitutional: Yes: Well Nourished, No Distress, Calm Cardiovascular: Yes: Regular Rate and Rhythm Respiratory: Yes: Regular, CTA Bilaterally Gastrointestinal: Yes: Normal Bowel Sounds, Soft Genitourinary: Yes: Incontinence Musculoskeletal: Yes: Muscle Weakness Extremities: Yes: WNL Edema: No Peripheral Pulses WNL: Yes Neurological: Yes: Alert, Pre-Existing Deficit Labs: CBC, BMP 12/27/19 10:18 12/29/19 07:05 INR, PTT INR 1.04 (0.83-1.09) 12/27/19 10:18 Problem List - Problems (1) Acute on chronic diastolic (congestive) heart failure Assessment/Plan: -Cardiology consult -Tele monitoring -Furosemide 40 mg IVP BID -Continue nifedipine 90 mg po daily -Continue labetalol 300 mg po tid -Continue losartan 100 mg po daily -Continue Hydralazine 75 mg po tid -Low sodium diet Problems reviewed: Yes Code(s): I50.33 - ACUTE ON CHRONIC DIASTOLIC (CONGESTIVE) HEART FAILURE (2) CKD (chronic kidney disease) Assessment/Plan: -Nephrology consult -Cr at baseline -monitor trend Problems reviewed: Yes Code(s): N18.9 - CHRONIC KIDNEY DISEASE, UNSPECIFIED Qualifiers: Chronic kidney disease stage: stage 5, not on chronic dialysis Qualified Code(s): N18.5 - Chronic kidney disease, stage 5 (3) HTN (hypertension) Assessment/Plan: -as above Problems reviewed: Yes Code(s): I10 - ESSENTIAL (PRIMARY) HYPERTENSION (4) Weakness Assessment/Plan: -physical therapy -Safety precautions Problems reviewed: Yes Code(s): R53.1 - WEAKNESS (5) Failure to thrive Assessment/Plan: -PEG placement next week -ASA on hold -Worsening dementia Problems reviewed: Yes Code(s): [id number] - Qualifiers: Failure to thrive age range: in adult Qualified Code(s): R62.7 - Adult failure to thrive (6) Parkinson disease Assessment/Plan: -Neurology consult appreciated Problems reviewed: Yes Code(s): G20 - PARKINSON'S DISEASE Assessment/Plan See problem list
[2019-12-31] MEDS: QUEtiapine FUMARATE 25 MG TABLET PO SCH (21:41)
[2019-12-31] MEDS: ATORVASTATIN CA 20 MG TABLET (FP) PO SCH (21:42)
[2019-12-31] MEDS: MIRTAZAPINE 15 MG TABLET (FP) PO SCH (21:42)
[2019-12-31] MEDS: SENNOSIDES/DOCUSATE COMBO (SENNA PLUS) TABLET (UD) PO SCH (21:43)
[2020-01-01] MEDS: LABETALOL HCL 100 MG TABLET (FP) PO SCH ×3 (06:08→22:10)
[2020-01-01] MEDS: LEVOTHYROXINE NA 25 MCG TABLET (FP) PO SCH (06:08)
[2020-01-01] MEDS: INSULIN SLIDING SCALE (NOVOLOG) 1 VIAL SQ SCH ×4 (06:08→22:11)
[2020-01-01] MEDS: hydrALAZINE HCL 25 MG TABLET (FP) PO SCH ×3 (06:08→22:09)
[2020-01-01] MEDS: FUROSEMIDE 40 MG/4 ML INJECTABLE VIAL IVPUSH SCH ×2 (06:08→14:40)
[2020-01-01 06:47] LABS: BASO % 0.5 % (0-2.0); EOS % 7.5 % (0-4.5); HEMATOCRIT 30.6 % (32.4-45.2); HEMOGLOBIN 10.2 GM/dL (10.7-15.3); LYMPH % 9.2 % (8-40); MCH 27.4 pg (25.7-33.7); MCHC 33.2 g/dl (32.0-36.0); MEAN CELL VOLUME 82.7 fl (80-96); MEAN PLT VOLUME 7.5 fl (7.5-11.1); MONO % 11.6 % (3.8-10.2); NEUT % 71.2 % (42.8-82.8); PLATELET COUNT 353 K/MM3 (134-434); RDW 18.5 % (11.6-15.6); WHITE BLOOD COUNT 8.1 K/mm3 (4.0-10.0)
[2020-01-01 06:53] LABS: INR 1.17 (0.83-1.09); PROTHROMBIN TIME (PATIENT) 13.8 SEC (9.7-13.0)
[2020-01-01 07:17] LABS: ALBUMIN 2.5 g/dl (3.4-5.0); BILIRUBIN,TOTAL 0.5 mg/dL (0.2-1); BLOOD UREA NITROGEN 26.8 mg/dL (7-18); CALCIUM 8.5 mg/dL (8.5-10.1); CREATININE 1.4 mg/dL (0.55-1.3); POTASSIUM 3.1 mmol/L (3.5-5.1); TOT PROT 5.6 g/dl (6.4-8.2)
--- NOTE | 2020-01-01 08:55 | PN ---
Progress Note, Physician History of Present Illness: 79 year old female with recurrent admissions for CHF, this being her 3rd admission within this month for CHF exacerbation, came in to [facility] ER on 12/19/19 with SOB, weakness, BLLE edema. Started on nitro drip upon admission for SBP>200 mmHg, tapered off and restarted on PO meds. BP labile Awaiting PEG placement by IR - Current Medication List Current Medications: Active Medications Acetaminophen (Tylenol -) 1,000 mg PO Q6H PRN PRN Reason: PAIN Last Admin: 12/31/19 11:08 Dose: 1,000 mg Documented by: Al Hydroxide/Mg Hydroxide (Mylanta Oral Suspension -) 30 ml PO Q6H PRN PRN Reason: DYSPEPSIA Atorvastatin Calcium (Lipitor -) 20 mg PO HS [facility] Last Admin: 12/31/19 21:42 Dose: Not Given Documented by: Donepezil HCl (Aricept -) 10 mg PO DAILY [facility] Last Admin: 12/31/19 09:16 Dose: 10 mg Documented by: Furosemide (Lasix Injection -) 40 mg IVPUSH BID@0600,1400 [facility] Last Admin: 01/01/20 06:08 Dose: 40 mg Documented by: Heparin Sodium (Porcine) (Heparin -) 5,000 unit SQ BID [facility] Last Admin: 12/31/19 22:24 Dose: Not Given Documented by: Hydralazine HCl (Apresoline -) 75 mg PO TID [facility] Last Admin: 01/01/20 06:08 Dose: Not Given Documented by: Insulin Aspart (Novolog Vial Sliding Scale -) 1 vial SQ [facility]; Protocol Last Admin: 01/01/20 06:08 Dose: Not Given Documented by: Labetalol HCl (Normodyne -) 300 mg PO TID [facility] Last Admin: 01/01/20 06:08 Dose: 300 mg Documented by: Levothyroxine Sodium (Synthroid -) 25 mcg PO DAILY@0700 [facility] Last Admin: 01/01/20 06:08 Dose: 25 mcg Documented by: Losartan Potassium (Cozaar -) 100 mg PO DAILY [facility] Last Admin: 12/31/19 09:07 Dose: 100 mg Documented by: Memantine (Namenda -) 10 mg PO BID [facility] Last Admin: 12/31/19 21:42 Dose: Not Given Documented by: Mirtazapine (Remeron -) 15 mg PO [facility] Last Admin: 12/31/19 21:42 Dose: 15 mg Documented by: Multivitamins/Minerals/Vitamin C (Tab-A-Vit -) 1 tab PO DAILY [facility] Last Admin: 12/31/19 09:16 Dose: 1 tab Documented by: Nifedipine (Procardia Xl -) 90 mg PO DAILY [facility] Last Admin: 12/31/19 09:07 Dose: 90 mg Documented by: Pantoprazole Sodium (Protonix -) 20 mg PO DAILY [facility] Last Admin: 12/31/19 09:18 Dose: 20 mg Documented by: Polysaccharide Iron Complex (Niferex-150 -) 150 mg PO DAILY [facility] Last Admin: 12/31/19 09:16 Dose: 150 mg Documented by: Quetiapine Fumarate (Seroquel -) 25 mg PO [facility] Last Admin: 12/31/19 21:41 Dose: 25 mg Documented by: Senna/Docusate Sodium (Pericolace -) 2 tablet PO [facility] Last Admin: 12/31/19 21:43 Dose: Not Given Documented by: - Objective Vital Signs: Vital Signs Temperature 98.2 F 01/01/20 06:00 Pulse Rate 68 01/01/20 06:00 Respiratory Rate 20 01/01/20 06:00 Blood Pressure 192/59 H 01/01/20 06:00 O2 Sat by Pulse Oximetry (%) 100 01/01/20 06:00 Cardiovascular: Yes: Regular Rate and Rhythm Respiratory: Yes: Regular, CTA Bilaterally Gastrointestinal: Yes: Normal Bowel Sounds, Soft. No: Tenderness Labs: CBC, BMP 01/01/20 06:30 01/01/20 06:30 INR, PTT INR 1.17 (0.83-1.09) H 01/01/20 06:30 Assessment/Plan CURRENT SITUATION DISCUSSED WITH LUCAS AND HER DAUGHTER GIOVANNY SINCE PT REFUSES AND SPITS OUT MEDS FREQUENTLY IT WILL BE DIFFICULT TO CONTROL AND MANGE HER CONDITION ESPECIALLY HER BP. PEG WILL BE BEST OPTION TO MANGE PATIENT - Problems (1) Acute on chronic diastolic (congestive) heart failure Assessment/Plan: -Cardiology consult -Tele monitoring -Furosemide 40 mg IVP BID -Continue nifedipine 90 mg po daily -Continue labetalol 300 mg po tid -Continue losartan 100 mg po daily -Continue Hydralazine 75 mg po tid -Low sodium diet Problems reviewed: Yes Code(s): I50.33 - ACUTE ON CHRONIC DIASTOLIC (CONGESTIVE) HEART FAILURE (2) CKD (chronic kidney disease) Assessment/Plan: -Nephrology consult -Cr at baseline -monitor trend Problems reviewed: Yes Code(s): N18.9 - CHRONIC KIDNEY DISEASE, UNSPECIFIED Qualifiers: Chronic kidney disease stage: stage 5, not on chronic dialysis Qualified Code(s): N18.5 - Chronic kidney disease, stage 5 (3) HTN (hypertension) Assessment/Plan: -as above Problems reviewed: Yes Code(s): I10 - ESSENTIAL (PRIMARY) HYPERTENSION (4) Weakness Assessment/Plan: -physical therapy -Safety precautions Problems reviewed: Yes Code(s): R53.1 - WEAKNESS (5) Failure to thrive Assessment/Plan: -PEG placement -ASA on hold -Worsening dementia Problems reviewed: Yes Code(s): [id number] - Qualifiers: Failure to thrive age range: in adult Qualified Code(s): R62.7 - Adult fa ilure to thrive (6) Parkinson disease Assessment/Plan: -Neurology consult appreciated Problems reviewed: Yes Code(s): G20 - PARKINSON'S DISEASE
[2020-01-01] MEDS: LOSARTAN POTASSIUM 50 MG TABLET PO SCH (09:43)
[2020-01-01] MEDS: DONEPEZIL HCL 10 MG TABLET (FP) PO SCH ×2 (09:44→10:04)
[2020-01-01] MEDS: PANTOPRAZOLE 20 MG TABLET PO SCH ×2 (09:44→10:05)
[2020-01-01] MEDS: MULTIVITAMINS (DAILY MVI) TABLET (FP) PO SCH ×2 (09:44→10:04)
[2020-01-01] MEDS: NIFEdipine E.R. 90 MG TABLET PO SCH (09:44)
[2020-01-01] MEDS: MEMANTINE HCL 10 MG TABLET (FP) PO SCH ×3 (09:44→22:09)
[2020-01-01] MEDS: HEPARIN NA (PORCINE) 5,000 UNITS/ML 1ML VIAL SQ SCH ×2 (09:44→22:10)
[2020-01-01] MEDS: IRON POLYSACCHARIDES 150 MG CAPSULE PO SCH ×2 (09:45→10:04)
--- NOTE | 2020-01-01 10:20 | PN ---
Progress Note, PHOTOGRAPHY EDITOR - Note Progress Note: Selected Entries 12/31/19 12/31/19 12/31/19 10:31 13:53 23:00 Breakfast 25% Diet Tolerated Poor Poor Poor Lunch 25% Supper 25% Temperature Pulse Rate Blood Pressure O2 Sat by Pulse Oximetry (%) 01/01/20 01/01/20 06:00 09:02 Breakfast 25% Diet Tolerated Poor Lunch Supper Temperature 98.2 F Pulse Rate 68 Blood Pressure 192/59 H O2 Sat by Pulse 100 Oximetry (%) Laboratory Tests 01/01/20 06:30 WBC 8.1 Intermittent PO acceptance. 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 Encourage supplements Awaiting PEG placement by IR Suggest continue PO trials, as tolerated, accepted, desired, with supplemental TF
[2020-01-01] MEDS ORDERED: POTASSIUM CHLORIDE ORAL LIQUID 20 MEQ/15 ML PO ONE (12:17)
[2020-01-01] MEDS ORDERED: PT OWN MED DRAWER 7, Y5N ONE ×2 (13:48→14:38)
--- NOTE | 2020-01-01 13:49 | PN ---
Progress Note, Physician History of Present Illness: Pt seen and examined at bedside. She is awake and appears comfortable. - Current Medication List Current Medications: Active Medications Acetaminophen (Tylenol -) 1,000 mg PO Q6H PRN PRN Reason: PAIN Last Admin: 12/31/19 11:08 Dose: 1,000 mg Documented by: Al Hydroxide/Mg Hydroxide (Mylanta Oral Suspension -) 30 ml PO Q6H PRN PRN Reason: DYSPEPSIA Atorvastatin Calcium (Lipitor -) 20 mg PO [facility] Last Admin: 12/31/19 21:42 Dose: Not Given Documented by: Donepezil HCl (Aricept -) 10 mg PO DAILY [facility] Last Admin: 01/01/20 10:04 Dose: Not Given Documented by: Furosemide (Lasix Injection -) 40 mg IVPUSH BID@0600,1400 [facility] Last Admin: 01/01/20 06:08 Dose: 40 mg Documented by: Heparin Sodium (Porcine) (Heparin -) 5,000 unit SQ BID [facility] Last Admin: 01/01/20 09:44 Dose: 5,000 unit Documented by: Hydralazine HCl (Apresoline -) 75 mg PO TID [facility] Last Admin: 01/01/20 06:08 Dose: Not Given Documented by: Insulin Aspart (Novolog Vial Sliding Scale -) 1 vial SQ [facility]; Protocol Last Admin: 01/01/20 11:55 Dose: Not Given Documented by: Labetalol HCl (Normodyne -) 300 mg PO TID [facility] Last Admin: 01/01/20 06:08 Dose: 300 mg Documented by: Levothyroxine Sodium (Synthroid -) 25 mcg PO DAILY@0700 [facility] Last Admin: 01/01/20 06:08 Dose: 25 mcg Documented by: Losartan Potassium (Cozaar -) 100 mg PO DAILY [facility] Last Admin: 01/01/20 09:43 Dose: 100 mg Documented by: Memantine (Namenda -) 10 mg PO BID [facility] Last Admin: 01/01/20 10:04 Dose: Not Given Documented by: Mirtazapine (Remeron -) 15 mg PO [facility] Last Admin: 12/31/19 21:42 Dose: 15 mg Documented by: Multivitamins/Minerals/Vitamin C (Tab-A-Vit -) 1 tab PO DAILY [facility] Last Admin: 01/01/20 10:04 Dose: Not Given Documented by: Nifedipine (Procardia Xl -) 90 mg PO DAILY [facility] Last Admin: 01/01/20 09:44 Dose: 90 mg Documented by: Pantoprazole Sodium (Protonix -) 20 mg PO DAILY [facility] Last Admin: 01/01/20 10:05 Dose: Not Given Documented by: Polysaccharide Iron Complex (Niferex-150 -) 150 mg PO DAILY [facility] Last Admin: 01/01/20 10:04 Dose: Not Given Documented by: Quetiapine Fumarate (Seroquel -) 25 mg PO HS [facility] Last Admin: 12/31/19 21:41 Dose: 25 mg Documented by: Senna/Docusate Sodium (Pericolace -) 2 tablet PO HS [facility] Last Admin: 12/31/19 21:43 Dose: Not Given Documented by: - Objective Vital Signs: Vital Signs Temperature 98.4 F 01/01/20 10:00 Pulse Rate 65 01/01/20 10:00 Respiratory Rate 20 01/01/20 10:00 Blood Pressure 194/86 H 01/01/20 10:00 O2 Sat by Pulse Oximetry (%) 100 01/01/20 10:00 Constitutional: Yes: Calm Eyes: Yes: Conjunctiva Clear Cardiovascular: Yes: S1, S2 Respiratory: Yes: CTA Bilaterally Gastrointestinal: Yes: Soft Genitourinary: Yes: Incontinence Musculoskeletal: Yes: Muscle Weakness Edema: No Neurological: Yes: Confusion Labs: CBC, BMP 01/01/20 06:30 01/01/20 06:30 INR, PTT INR 1.17 (0.83-1.09) H 01/01/20 06:30 Assessment/Plan Current Medications Generic Name Dose Route Start Last Admin Trade Name Freq PRN Reason Stop Dose Admin Acetaminophen 1,000 mg 12/27/19 20:45 12/31/19 11:08 Tylenol - PO 1,000 mg Q6H PRN Administration PAIN Al Hydroxide/Mg Hydroxide 30 ml 12/27/19 20:45 Mylanta Oral Suspension - PO Q6H PRN DYSPEPSIA Atorvastatin Calcium 20 mg 12/27/19 22:00 12/31/19 21:42 Lipitor - PO Not Given HS [facility] Donepezil HCl 10 mg 12/26/19 10:00 01/01/20 10:04 Aricept - PO Not Given DAILY [facility] Furosemide 40 mg 12/28/19 06:00 10/12/20 06:08 Lasix Injection - IVPUSH 40 mg BID@0600,1400 [facility] Administration Heparin Sodium (Porcine) 5,000 unit 12/27/19 22:00 01/01/20 09:44 Heparin - SQ 5,000 unit BID [facility] Administration Hydralazine HCl 75 mg 12/27/19 22:00 01/01/20 06:08 Apresoline - PO Not Given TID [facility] Insulin Aspart 1 vial 12/27/19 22:00 01/01/20 11:55 Novolog Vial Sliding Scale - SQ Not Given ACHS [facility] Protocol Labetalol HCl 300 mg 12/27/19 22:00 01/01/20 06:08 Normodyne - PO 300 mg TID [facility] Administration Levothyroxine Sodium 25 mcg 12/28/19 07:00 01/01/20 06:08 Synthroid - PO 25 mcg DAILY@0700 [facility] Administration Losartan Potassium 100 mg 12/28/19 10:00 01/01/20 09:43 Cozaar - PO 100 mg DAILY [facility] Administration Memantine 10 mg 12/25/19 22:00 01/01/20 10:04 Namenda - PO Not Given BID [facility] Mirtazapine 15 mg 12/25/19 18:43 12/31/19 21:42 Remeron - PO 15 mg HS [facility] Administration Multivitamins/Minerals/Vitamin C 1 tab 12/28/19 10:00 01/01/20 10:04 Tab-A-Vit - PO Not Given DAILY [facility] Nifedipine 90 mg 12/28/19 10:00 01/01/20 09:44 Procardia Xl - PO 90 mg DAILY [facility] Administration Pantoprazole Sodium 20 mg 12/28/19 10:00 01/01/20 10:05 Protonix - PO Not Given DAILY [facility] Polysaccharide Iron Complex 150 mg 12/28/19 10:00 01/01/20 10:04 Niferex-150 - PO Not Given DAILY [facility] Quetiapine Fumarate 25 mg 12/24/19 22:00 12/31/19 21:41 Seroquel - PO 25 mg HS [facility] Administration Senna/Docusate Sodium 2 tablet 12/27/19 22:00 12/31/19 21:43 Pericolace - PO Not Given HS [facility] Impression 1. JASPER 2. CKD 3. HLD 4. diverticulosis 5. HTN 6. DM 7. proteinuria 8. hypoalbuminemia 9. UTI 10. pleural effusion 11. chf 12. pericardial effusion without tamponade 13. fluid overload Impression - pt does not always take her meds - replace potassium - pending peg placement - change lasix to po once peg in place - cont arb - avoid nsaids - avoid nephrotoxins
[2020-01-01] MEDS ORDERED: PCA PUMP NR ONE (17:01)
[2020-01-01] MEDS: KCL 10 MEQ IVPB 10 MEQ/100 ML INFUS.BAG IVPB SCH ×2 (17:13→18:07)
[2020-01-01] MEDS ORDERED: FLU VACCINE (FLULAVAL) PF 60 MCG/0.5 ML SYRINGE 2020-2021 IM ONE (18:00)
[2020-01-01] MEDS: ATORVASTATIN CA 20 MG TABLET (FP) PO SCH (22:09)
[2020-01-01] MEDS: MIRTAZAPINE 15 MG TABLET (FP) PO SCH (22:11)
[2020-01-01] MEDS: SENNOSIDES/DOCUSATE COMBO (SENNA PLUS) TABLET (UD) PO SCH (22:11)
[2020-01-01] MEDS: QUEtiapine FUMARATE 25 MG TABLET PO SCH (22:12)
[2020-01-02] MEDS: ACETAMINOPHEN 500 MG TABLET (FP) PO PRN (03:25)
[2020-01-02] MEDS: FUROSEMIDE 40 MG/4 ML INJECTABLE VIAL IVPUSH SCH ×2 (05:55→13:55)
[2020-01-02] MEDS: LABETALOL HCL 100 MG TABLET (FP) PO SCH ×3 (05:55→21:25)
[2020-01-02] MEDS: hydrALAZINE HCL 25 MG TABLET (FP) PO SCH ×3 (05:55→21:25)
[2020-01-02] MEDS: INSULIN SLIDING SCALE (NOVOLOG) 1 VIAL SQ SCH ×4 (06:11→21:27)
[2020-01-02] MEDS: LEVOTHYROXINE NA 25 MCG TABLET (FP) PO SCH (06:11)
--- NOTE | 2020-01-02 08:25 | PN ---
Progress Note, Physician - Current Medication List Current Medications: Active Medications Acetaminophen (Tylenol -) 1,000 mg PO Q6H PRN PRN Reason: PAIN Last Admin: 01/02/20 03:25 Dose: 1,000 mg Documented by: Al Hydroxide/Mg Hydroxide (Mylanta Oral Suspension -) 30 ml PO Q6H PRN PRN Reason: DYSPEPSIA Atorvastatin Calcium (Lipitor -) 20 mg PO [facility] Last Admin: 01/01/20 22:09 Dose: 20 mg Documented by: Donepezil HCl (Aricept -) 10 mg PO DAILY [facility] Last Admin: 01/01/20 10:04 Dose: Not Given Documented by: Furosemide (Lasix Injection -) 40 mg IVPUSH BID@0600,1400 [facility] Last Admin: 01/02/20 05:55 Dose: 40 mg Documented by: Heparin Sodium (Porcine) (Heparin -) 5,000 unit SQ BID [facility] Last Admin: 01/01/20 22:10 Dose: 5,000 unit Documented by: Hydralazine HCl (Apresoline -) 75 mg PO TID [facility] Last Admin: 01/02/20 05:55 Dose: 75 mg Documented by: Insulin Aspart (Novolog Vial Sliding Scale -) 1 vial SQ [facility]; Protocol Last Admin: 01/02/20 06:11 Dose: Not Given Documented by: Labetalol HCl (Normodyne -) 300 mg PO TID [facility] Last Admin: 01/02/20 05:55 Dose: 300 mg Documented by: Levothyroxine Sodium (Synthroid -) 25 mcg PO DAILY@0700 [facility] Last Admin: 01/02/20 06:11 Dose: 25 mcg Documented by: Losartan Potassium (Cozaar -) 100 mg PO DAILY [facility] Last Admin: 01/01/20 09:43 Dose: 100 mg Documented by: Memantine (Namenda -) 10 mg PO BID [facility] Last Admin: 01/01/20 22:09 Dose: 10 mg Documented by: Mirtazapine (Remeron -) 15 mg PO [facility] Last Admin: 01/01/20 22:11 Dose: 15 mg Documented by: Multivitamins/Minerals/Vitamin C (Tab-A-Vit -) 1 tab PO DAILY [facility] Last Admin: 01/01/20 10:04 Dose: Not Given Documented by: Nifedipine (Procardia Xl -) 90 mg PO DAILY [facility] Last Admin: 01/01/20 09:44 Dose: 90 mg Documented by: Pantoprazole Sodium (Protonix -) 20 mg PO DAILY [facility] Last Admin: 01/01/20 10:05 Dose: Not Given Documented by: Polysaccharide Iron Complex (Niferex-150 -) 150 mg PO DAILY [facility] Last Admin: 01/01/20 10:04 Dose: Not Given Documented by: Quetiapine Fumarate (Seroquel -) 25 mg PO [facility] Last Admin: 01/01/20 22:12 Dose: 25 mg Documented by: Senna/Docusate Sodium (Pericolace -) 2 tablet PO [facility] Last Admin: 01/01/20 22:11 Dose: 2 tablet Documented by: - Objective Vital Signs: Vital Signs Temperature 97.0 F L 01/02/20 06:00 Pulse Rate 68 01/02/20 06:00 Respiratory Rate 20 01/02/20 06:00 Blood Pressure 182/67 H 01/02/20 06:00 O2 Sat by Pulse Oximetry (%) 100 01/02/20 06:00 Cardiovascular: Yes: S1, S2 Respiratory: Yes: Regular, CTA Bilaterally Gastrointestinal: Yes: Normal Bowel Sounds, Soft Labs: CBC, BMP 01/01/20 06:30 01/01/20 06:30 INR, PTT INR 1.17 (0.83-1.09) H 01/01/20 06:30 Assessment/Plan CURRENT SITUATION DISCUSSED WITH LUCAS AND HER DAUGHTER GIOVANNY SINCE PT REFUSES AND SPITS OUT MEDS FREQUENTLY IT WILL BE DIFFICULT TO CONTROL AND MANGE HER CONDITION ESPECIALLY HER BP. PEG WILL BE BEST OPTION TO MANGE PATIENT - Problems (1) Acute on chronic diastolic (congestive) heart failure Assessment/Plan: -Cardiology consult -Tele monitoring -Furosemide 40 mg IVP BID -Continue nifedipine 90 mg po daily -Continue labetalol 300 mg po tid -Continue losartan 100 mg po daily -Continue Hydralazine 75 mg po tid -Low sodium diet Problems reviewed: Yes Code(s): I50.33 - ACUTE ON CHRONIC DIASTOLIC (CONGESTIVE) HEART FAILURE (2) CKD (chronic kidney disease) Assessment/Plan: -Nephrology consult -Cr at baseline -monitor trend Problems reviewed: Yes Code(s): N18.9 - CHRONIC KIDNEY DISEASE, UNSPECIFIED Qualifiers: Chronic kidney disease stage: stage 5, not on chronic dialysis Qualified Code(s): N18.5 - Chronic kidney disease, stage 5 (3) HTN (hypertension) Assessment/Plan: -as above Problems reviewed: Yes Code(s): I10 - ESSENTIAL (PRIMARY) HYPERTENSION (4) Weakness Assessment/Plan: -physical therapy -Safety precautions Problems reviewed: Yes Code(s): R53.1 - WEAKNESS (5) Failure to thrive Assessment/Plan: -PEG placement HOPEFULLY TODAY -ASA on hold -Worsening dementia Problems reviewed: Yes Code(s): [id number] - Qualifiers: Failure to thrive age range: in adult Qualified Code(s): R62.7 - Adult failure to thrive (6) Parkinson disease Assessment/Plan: -Neurology consult appreciated Problems reviewed: Yes Code(s): G20 - PARKINSON'S DISEASE
[2020-01-02] MEDS: NIFEdipine E.R. 90 MG TABLET PO SCH (09:02)
[2020-01-02] MEDS: LOSARTAN POTASSIUM 50 MG TABLET PO SCH (09:02)
[2020-01-02] MEDS: DONEPEZIL HCL 10 MG TABLET (FP) PO SCH (09:07)
[2020-01-02] MEDS: PANTOPRAZOLE 20 MG TABLET PO SCH (09:08)
[2020-01-02] MEDS: MULTIVITAMINS (DAILY MVI) TABLET (FP) PO SCH (09:08)
[2020-01-02] MEDS: IRON POLYSACCHARIDES 150 MG CAPSULE PO SCH (09:08)
[2020-01-02] MEDS: MEMANTINE HCL 10 MG TABLET (FP) PO SCH ×2 (09:08→21:27)
--- NOTE | 2020-01-02 10:31 | PN ---
Progress Note, PUBLIC INFORMATION COORDINATOR - Note Progress Note: Selected Entries 12/31/19 12/31/19 12/31/19 10:31 13:53 23:00 Breakfast 25% Diet Tolerated Poor Poor Poor Lunch 25% Supper 25% Temperature Pulse Rate Blood Pressure O2 Sat by Pulse Oximetry (%) 01/01/20 01/01/20 06:00 09:02 Breakfast 25% Diet Tolerated Poor Lunch Supper Temperature 98.2 F Pulse Rate 68 Blood Pressure 192/59 H O2 Sat by Pulse 100 Oximetry (%) Laboratory Tests 01/01/20 06:30 WBC 8.1 Intermittent po acceptance Considering PEG placement by IR f/u Palliative care Suggest continue PO trials, as tolerated, accepted, desired, with supplemental TF
[2020-01-02 10:50] LABS: POTASSIUM 3.3 mmol/L (3.5-5.1)
[2020-01-02 10:56] LABS: BLOOD UREA NITROGEN 24.7 mg/dL (7-18); CALCIUM 8.6 mg/dL (8.5-10.1); CREATININE 1.3 mg/dL (0.55-1.3)
--- NOTE | 2020-01-02 12:13 | PN ---
Progress Note, Physician History of Present Illness: Pt seen and examined at bedside. She appears comfortable. - Current Medication List Current Medications: Active Medications Acetaminophen (Tylenol -) 1,000 mg PO Q6H PRN PRN Reason: PAIN Last Admin: 01/02/20 03:25 Dose: 1,000 mg Documented by: Al Hydroxide/Mg Hydroxide (Mylanta Oral Suspension -) 30 ml PO Q6H PRN PRN Reason: DYSPEPSIA Atorvastatin Calcium (Lipitor -) [address] [facility] Last Admin: 01/01/20 22:09 Dose: 20 mg Documented by: Donepezil HCl (Aricept -) 10 mg PO DAILY [facility] Last Admin: 01/02/20 09:07 Dose: Not Given Documented by: Furosemide (Lasix Injection -) 40 mg IVPUSH BID@0600,1400 [facility] Last Admin: 01/02/20 05:55 Dose: 40 mg Documented by: Heparin Sodium (Porcine) (Heparin -) 5,000 unit SQ BID [facility] Last Admin: 01/01/20 22:10 Dose: 5,000 unit Documented by: Hydralazine HCl (Apresoline -) 75 mg PO TID [facility] Last Admin: 01/02/20 05:55 Dose: 75 mg Documented by: Potassium Chloride (Potassium Chloride 10 Meq Premix Ivpb -) 10 meq in 100 mls @ 100 mls/hr IVPB Q60M REPLACED [facility] Stop: 01/02/20 14:14 Insulin Aspart (Novolog Vial Sliding Scale -) 1 vial SQ ACHS [facility]; Protocol Last Admin: 01/02/20 06:11 Dose: Not Given Documented by: Labetalol HCl (Normodyne -) 300 mg PO TID [facility] Last Admin: 01/02/20 05:55 Dose: 300 mg Documented by: Levothyroxine Sodium (Synthroid -) 25 mcg PO DAILY@0700 [facility] Last Admin: 01/02/20 06:11 Dose: 25 mcg Documented by: Losartan Potassium (Cozaar -) 100 mg PO DAILY [facility] Last Admin: 01/02/20 09:02 Dose: 100 mg Documented by: Memantine (Namenda -) 10 mg PO BID [facility] Last Admin: 01/02/20 09:08 Dose: Not Given Documented by: Mirtazapine (Remeron -) [address] [facility] Last Admin: 10/12/20 22:11 Dose: 15 mg Documented by: Multivitamins/Minerals/Vitamin C (Tab-A-Vit -) 1 tab PO DAILY [facility] Last Admin: 01/02/20 09:08 Dose: Not Given Documented by: Nifedipine (Procardia Xl -) 90 mg PO DAILY [facility] Last Admin: 01/02/20 09:02 Dose: 90 mg Documented by: Pantoprazole Sodium (Protonix -) 20 mg PO DAILY [facility] Last Admin: 01/02/20 09:08 Dose: Not Given Documented by: Polysaccharide Iron Complex (Niferex-150 -) 150 mg PO DAILY [facility] Last Admin: 01/02/20 09:08 Dose: Not Given Documented by: Quetiapine Fumarate (Seroquel -) [address] [facility] Last Admin: 01/01/20 22:12 Dose: 25 mg Documented by: Senna/Docusate Sodium (Pericolace -) [address] [facility] Last Admin: 01/01/20 22:11 Dose: 2 tablet Documented by: - Objective Vital Signs: Vital Signs Temperature 97.9 F 01/02/20 09:00 Pulse Rate 61 01/02/20 09:00 Respiratory Rate 19 01/02/20 09:00 Blood Pressure 188/67 H 01/02/20 09:00 O2 Sat by Pulse Oximetry (%) 100 01/02/20 09:00 Constitutional: Yes: Calm Eyes: Yes: Conjunctiva Clear HENT: Yes: Atraumatic Neck: Yes: Supple Cardiovascular: Yes: S1, S2 Respiratory: Yes: CTA Bilaterally Gastrointestinal: Yes: Soft Genitourinary: Yes: Incontinence Musculoskeletal: Yes: WNL Edema: No Neurological: Yes: Confusion Labs: CBC, BMP 01/01/20 06:30 01/02/20 09:45 INR, PTT INR 1.17 (0.83-1.09) H 01/01/20 06:30 Assessment/Plan Current Medications Generic Name Dose Route Start Last Admin Trade Name Freq PRN Reason Stop Dose Admin Acetaminophen 1,000 mg 12/27/19 20:45 01/02/20 03:25 Tylenol - PO 1,000 mg Q6H PRN Administration PAIN Al Hydroxide/Mg Hydroxide 30 ml 12/27/19 20:45 Mylanta Oral Suspension - PO Q6H PRN DYSPEPSIA Atorvastatin Calcium 20 mg 12/27/19 22:00 01/01/20 22:09 Lipitor - PO 20 mg HS [facility] Administration Donepezil HCl 10 mg 12/26/19 10:00 01/02/20 09:07 Aricept - PO Not Given DAILY [facility] Furosemide 40 mg 12/28/19 06:00 01/02/20 05:55 Lasix Injection - IVPUSH 40 mg BID@0600,1400 [facility] Administration Heparin Sodium (Porcine) 5,000 unit 12/27/19 22:00 01/01/20 22:10 Heparin - SQ 5,000 unit BID [facility] Administration Hydralazine HCl 75 mg 12/27/19 22:00 01/02/20 05:55 Apresoline - PO 75 mg TID [facility] Administration Potassium Chloride 10 meq in 100 mls @ 100 mls/hr 01/02/20 12:15 Potassium Chloride 10 Meq Premix Ivpb - IVPB 01/02/20 14:14 Q60M [facility] Insulin Aspart 1 vial 12/27/19 22:00 01/02/20 06:11 Novolog Vial Sliding Scale - SQ Not Given ACHS REPLACED BY [facility] Protocol Labetalol HCl 300 mg 12/27/19 22:00 01/02/20 05:55 Normodyne - PO 300 mg TID [facility] Administration Levothyroxine Sodium 25 mcg 12/28/19 07:00 01/02/20 06:11 Synthroid - PO 25 mcg DAILY@0700 [facility] Administration Losartan Potassium 100 mg 12/28/19 10:00 01/02/20 09:02 Cozaar - PO 100 mg DAILY [facility] Administration Memantine 10 mg 12/25/19 22:00 01/02/20 09:08 Namenda - PO Not Given BID [facility] Mirtazapine 15 mg 12/25/19 18:43 01/01/20 22:11 Remeron - PO 15 mg HS [facility] Administration Multivitamins/Minerals/Vitamin C 1 tab 12/28/19 10:00 01/02/20 09:08 Tab-A-Vit - PO Not Given DAILY [facility] Nifedipine 90 mg 12/28/19 10:00 01/02/20 09:02 Procardia Xl - PO 90 mg DAILY [facility] Administration Pantoprazole Sodium 20 mg 12/28/19 10:00 01/02/20 09:08 Protonix - PO Not Given DAILY [facility]PL[facility]ED [facility] Polysaccharide Iron Complex 150 mg 12/28/19 10:00 01/02/20 09:08 Niferex-150 - PO Not Given DAILY [facility] Quetiapine Fumarate 25 mg 12/24/19 22:00 01/01/20 22:12 Seroquel - PO 25 mg HS [facility] Administration Senna/Docusate Sodium 2 tablet 12/27/19 22:00 01/01/20 22:11 Pericolace - PO 2 tablet HS [facility] Administration Impression 1. JASPER 2. CKD 3. HLD 4. diverticulosis 5. HTN 6. DM 7. proteinuria 8. hypoalbuminemia 9. UTI 10. pleural effusion 11. chf 12. pericardial effusion without tamponade 13. fluid overload Impression - cont current meds - cont lasix - likely peg placement today - renal function stable - cont arb - avoid nsaids - avoid nephrotoxins - pt does not always taker her meds
[2020-01-02] MEDS: KCL 10 MEQ IVPB 10 MEQ/100 ML INFUS.BAG IVPB SCH ×2 (13:11→17:00)
[2020-01-02] MEDS: hydrALAZINE HCL 20 MG/ML VIAL IVPUSH PRN (13:56)
[2020-01-02] MEDS: HEPARIN NA (PORCINE) 5,000 UNITS/ML 1ML VIAL SQ SCH ×2 (18:48→21:24)
[2020-01-02] MEDS: ATORVASTATIN CA 20 MG TABLET (FP) PO SCH (21:26)
[2020-01-02] MEDS: MIRTAZAPINE 15 MG TABLET (FP) PO SCH (21:27)
[2020-01-02] MEDS: SENNOSIDES/DOCUSATE COMBO (SENNA PLUS) TABLET (UD) PO SCH (21:27)
[2020-01-02] MEDS: QUEtiapine FUMARATE 25 MG TABLET PO SCH (21:28)
[2020-01-03] MEDS: hydrALAZINE HCL 25 MG TABLET (FP) PO SCH ×3 (06:44→21:20)
[2020-01-03] MEDS: LEVOTHYROXINE NA 25 MCG TABLET (FP) PO SCH (06:44)
[2020-01-03] MEDS: INSULIN SLIDING SCALE (NOVOLOG) 1 VIAL SQ SCH ×4 (06:45→22:00)
[2020-01-03] MEDS: LABETALOL HCL 100 MG TABLET (FP) PO SCH ×3 (06:45→21:20)
[2020-01-03] MEDS: FUROSEMIDE 40 MG/4 ML INJECTABLE VIAL IVPUSH SCH ×2 (06:45→15:09)
[2020-01-03 08:14] LABS: BLOOD UREA NITROGEN 26.7 mg/dL (7-18); CALCIUM 8.9 mg/dL (8.5-10.1); CREATININE 1.3 mg/dL (0.55-1.3); POTASSIUM 3.8 mmol/L (3.5-5.1)
--- NOTE | 2020-01-03 08:47 | PN ---
Progress Note, Physician History of Present Illness: 79 year old female with recurrent admissions for CHF, this being her 3rd admission within this month for CHF exacerbation, came in to [facility] on 12/19/19 with SOB, weakness, BLLE edema. Started on nitro drip upon admission for SBP>200 mmHg, tapered off and restarted on PO meds. BP labile Awaiting PEG placement by IR DISCUSSED WITH GIOVANNY AGAIN WILL LET ME KNOW FAMILY DECISION - Current Medication List Current Medications: Active Medications Acetaminophen (Tylenol -) 1,000 mg PO Q6H PRN PRN Reason: PAIN Last Admin: 01/02/20 03:25 Dose: 1,000 mg Documented by: Al Hydroxide/Mg Hydroxide (Mylanta Oral Suspension -) 30 ml PO Q6H PRN PRN Reason: DYSPEPSIA Atorvastatin Calcium (Lipitor -) 20 mg PO HS [facility] Last Admin: 01/02/20 21:26 Dose: Not Given Documented by: Donepezil HCl (Aricept -) 10 mg PO DAILY [facility] Last Admin: 01/02/20 09:07 Dose: Not Given Documented by: Furosemide (Lasix Injection -) 40 mg IVPUSH BID@0600,1400 [facility] Last Admin: 01/03/20 06:45 Dose: 40 mg Documented by: Heparin Sodium (Porcine) (Heparin -) 5,000 unit SQ BID [facility] Last Admin: 01/02/20 21:24 Dose: 5,000 unit Documented by: Hydralazine HCl (Apresoline -) 75 mg PO TID [facility] Last Admin: 01/03/20 06:44 Dose: 75 mg Documented by: Hydralazine HCl (Apresoline Injection -) 10 mg IVPUSH Q6H PRN PRN Reason: HYPERTENSION Last Admin: 01/02/20 13:56 Dose: 10 mg Documented by: Insulin Aspart (Novolog Vial Sliding Scale -) 1 vial SQ [facility]; Protocol Last Admin: 01/03/20 06:45 Dose: Not Given Documented by: Labetalol HCl (Normodyne -) 300 mg PO TID [facility] Last Admin: 01/03/20 06:45 Dose: 300 mg Documented by: Levothyroxine Sodium (Synthroid -) 25 mcg PO DAILY@0700 [facility] Last Admin: 01/03/20 06:44 Dose: 25 mcg Documented by: Losartan Potassium (Cozaar -) 100 mg PO DAILY [facility] Last Admin: 01/02/20 09:02 Dose: 100 mg Documented by: Memantine (Namenda -) 10 mg PO BID [facility] Last Admin: 01/02/20 21:27 Dose: Not Given Documented by: Mirtazapine (Remeron -) 15 mg PO [facility] Last Admin: 01/02/20 21:27 Dose: 15 mg Documented by: Multivitamins/Minerals/Vitamin C (Tab-A-Vit -) 1 tab PO DAILY [facility] Last Admin: 01/02/20 09:08 Dose: Not Given Documented by: Nifedipine (Procardia Xl -) 90 mg PO DAILY [facility] Last Admin: 01/02/20 09:02 Dose: 90 mg Documented by: Pantoprazole Sodium (Protonix -) 20 mg PO DAILY [facility] Last Admin: 01/02/20 09:08 Dose: Not Given Documented by: Polysaccharide Iron Complex (Niferex-150 -) 150 mg PO DAILY [facility] Last Admin: 01/02/20 09:08 Dose: Not Given Documented by: Quetiapine Fumarate (Seroquel -) 25 mg PO [facility] Last Admin: 01/02/20 21:28 Dose: 25 mg Documented by: Senna/Docusate Sodium (Pericolace -) 2 tablet PO [facility] Last Admin: 01/02/20 21:27 Dose: Not Given Documented by: - Objective Vital Signs: Vital Signs Temperature 98.8 F 01/03/20 06:00 Pulse Rate 69 01/03/20 06:00 Respiratory Rate 20 01/03/20 06:00 Blood Pressure 153/73 01/03/20 06:00 O2 Sat by Pulse Oximetry (%) 88 L 01/03/20 06:00 Cardiovascular: Yes: Regular Rate and Rhythm Respiratory: Yes: Regular, CTA Bilaterally Gastrointestinal: Yes: Normal Bowel Sounds, Soft Labs: CBC, BMP 01/01/20 06:30 01/03/20 06:35 INR, PTT INR 1.17 (0.83-1.09) H 01/01/20 06:30 Assessment/Plan CURRENT SITUATION DISCUSSED WITH LUCAS AND HER DAUGHTER GIOVANNY SINCE PT REFUSES AND SPITS OUT MEDS FREQUENTLY IT WILL BE DIFFICULT TO CONTROL AND MANGE HER CONDITION ESPECIALLY HER BP. PEG WILL BE BEST OPTION TO MANGE PATIENT IF FAMILY NOT CONSENTING FOR PEG DC WITH HOSPICE DISCUSSED WITH GIOVANNY - Problems (1) Acute on chronic diastolic (congestive) heart failure Assessment/Plan: -Cardiology consult -Tele monitoring -Furosemide 40 mg IVP BID -Continue nifedipine 90 mg po daily -Continue labetalol 300 mg po tid -Continue losartan 100 mg po daily -Continue Hydralazine 75 mg po tid -Low sodium diet Problems reviewed: Yes Code(s): I50.33 - ACUTE ON CHRONIC DIASTOLIC (CONGESTIVE) HEART FAILURE (2) CKD (chronic kidney disease) Assessment/Plan: -Nephrology consult -Cr at baseline -monitor trend Problems reviewed: Yes Code(s): N18.9 - CHRONIC KIDNEY DISEASE, UNSPECIFIED Qualifiers: Chronic kidney disease stage: stage 5, not on chronic dialysis Qualified Code(s): N18.5 - Chronic kidney disease, stage 5 (3) HTN (hypertension) Assessment/Plan: -as above Problems reviewed: Yes Code(s): I10 - ESSENTIAL (PRIMARY) HYPERTENSION (4) Weakness Assessment/Plan: -physical therapy -Safety precautions Problems reviewed: Yes Code(s): R53.1 - WEAKNESS (5) Failure to thrive Assessment/Plan: -PEG placement -ASA on hold -Worsening dementia Problems reviewed: Yes Code(s): [id number] - Qualifiers: Failure to thrive age range: in adult Qualified Code(s): R62.7 - Adult failure to thrive (6) Parkinson disease Assessment/Plan: -Neurology consult appreciated Problems reviewed: Yes Code(s): G20 - PARKINSON'S DISEASE
--- NOTE | 2020-01-03 10:07 | PN ---
Progress Note, [employer] - Note Progress Note: Selected Entries 01/02/20 01/02/20 01/02/20 01:51 06:00 09:00 Supper Temperature Pulse Rate Blood Pressure 146/60 182/67 H 188/67 H O2 Sat by Pulse 100 100 100 Oximetry (%) Oxygen Delivery Nasal Cannula Method 01/02/20 01/02/20 01/02/20 13:34 14:30 18:00 Supper Temperature Pulse Rate Blood Pressure 208/76 H 134/43 L 141/45 L O2 Sat by Pulse 96 Oximetry (%) Oxygen Delivery Method 01/02/20 01/02/20 01/03/20 21:00 22:00 02:00 Supper 25% Temperature 99.3 F Pulse Rate 69 Blood Pressure 141/42 L 152/53 L O2 Sat by Pulse 100 Oximetry (%) Oxygen Delivery Nasal Cannula Method 01/03/20 06:00 Supper Temperature 98.8 F Pulse Rate 69 Blood Pressure 153/73 O2 Sat by Pulse 88 L Oximetry (%) Oxygen Delivery Method "I want nothing" Pending family decision regarding PEG. Suggest continue PO trials, as tolerated, accepted, desired, with supplemental TF, if family agrees
[2020-01-03] MEDS: LOSARTAN POTASSIUM 50 MG TABLET PO SCH (10:50)
[2020-01-03] MEDS: DONEPEZIL HCL 10 MG TABLET (FP) PO SCH (10:50)
[2020-01-03] MEDS: MEMANTINE HCL 10 MG TABLET (FP) PO SCH ×2 (10:51→21:20)
[2020-01-03] MEDS: PANTOPRAZOLE 20 MG TABLET PO SCH (10:51)
[2020-01-03] MEDS: HEPARIN NA (PORCINE) 5,000 UNITS/ML 1ML VIAL SQ SCH ×2 (10:51→21:19)
[2020-01-03] MEDS: MULTIVITAMINS (DAILY MVI) TABLET (FP) PO SCH (10:51)
[2020-01-03] MEDS: NIFEdipine E.R. 90 MG TABLET PO SCH (10:51)
[2020-01-03] MEDS: IRON POLYSACCHARIDES 150 MG CAPSULE PO SCH (10:52)
--- NOTE | 2020-01-03 11:25 | PN ---
Progress Note, Physician History of Present Illness: Pt seen and examined at bedside. She is awake but confused. - Current Medication List Current Medications: Active Medications Acetaminophen (Tylenol -) 1,000 mg PO Q6H PRN PRN Reason: PAIN Last Admin: 01/02/20 03:25 Dose: 1,000 mg Documented by: Al Hydroxide/Mg Hydroxide (Mylanta Oral Suspension -) 30 ml PO Q6H PRN PRN Reason: DYSPEPSIA Atorvastatin Calcium (Lipitor -) 20 mg PO [facility] Last Admin: 01/02/20 21:26 Dose: Not Given Documented by: Donepezil HCl (Aricept -) 10 mg PO DAILY [facility] Last Admin: 01/03/20 10:50 Dose: 10 mg Documented by: Furosemide (Lasix Injection -) 40 mg IVPUSH BID@0600,1400 [facility] Last Admin: 01/03/20 06:45 Dose: 40 mg Documented by: Heparin Sodium (Porcine) (Heparin -) 5,000 unit SQ BID [facility] Last Admin: 01/03/20 10:51 Dose: 5,000 unit Documented by: Hydralazine HCl (Apresoline -) 75 mg PO TID [facility] Last Admin: 01/03/20 06:44 Dose: 75 mg Documented by: Hydralazine HCl (Apresoline Injection -) 10 mg IVPUSH Q6H PRN PRN Reason: HYPERTENSION Last Admin: 01/02/20 13:56 Dose: 10 mg Documented by: Insulin Aspart (Novolog Vial Sliding Scale -) 1 vial SQ [facility]; Protocol Last Admin: 01/03/20 06:45 Dose: Not Given Documented by: Labetalol HCl (Normodyne -) 300 mg PO TID [facility] Last Admin: 01/03/20 06:45 Dose: 300 mg Documented by: Levothyroxine Sodium (Synthroid -) 25 mcg PO DAILY@0700 [facility] Last Admin: 01/03/20 06:44 Dose: 25 mcg Documented by: Losartan Potassium (Cozaar -) 100 mg PO DAILY [facility] Last Admin: 01/03/20 10:50 Dose: 100 mg Documented by: Memantine (Namenda -) 10 mg PO BID [facility] Last Admin: 01/03/20 10:51 Dose: 10 mg Documented by: Mirtazapine (Remeron -) 15 mg PO [facility] Last Admin: 01/02/20 21:27 Dose: 15 mg Documented by: Multivitamins/Minerals/Vitamin C (Tab-A-Vit -) 1 tab PO DAILY [facility] Last Admin: 01/03/20 10:51 Dose: 1 tab Documented by: Nifedipine (Procardia Xl -) 90 mg PO DAILY [facility] Last Admin: 01/03/20 10:51 Dose: 90 mg Documented by: Pantoprazole Sodium (Protonix -) 20 mg PO DAILY [facility] Last Admin: 01/03/20 10:51 Dose: 20 mg Documented by: Polysaccharide Iron Complex (Niferex-150 -) 150 mg PO DAILY [facility] Last Admin: 01/03/20 10:52 Dose: 150 mg Documented by: Quetiapine Fumarate (Seroquel -) 25 mg PO [facility] Last Admin: 01/02/20 21:28 Dose: 25 mg Documented by: Senna/Docusate Sodium (Pericolace -) 2 tablet PO [facility] Last Admin: 01/02/20 21:27 Dose: Not Given Documented by: - Objective Vital Signs: Vital Signs Temperature 97.4 F L 01/03/20 10:00 Pulse Rate 62 01/03/20 10:00 Respiratory Rate 16 01/03/20 10:00 Blood Pressure 149/56 L 01/03/20 10:00 O2 Sat by Pulse Oximetry (%) 93 L 01/03/20 10:00 Constitutional: Yes: Calm Eyes: Yes: Conjunctiva Clear HENT: Yes: Atraumatic Neck: Yes: Supple Cardiovascular: Yes: S1, S2 Gastrointestinal: Yes: Normal Bowel Sounds, Soft Genitourinary: Yes: WNL Musculoskeletal: Yes: WNL Edema: No Neurological: Yes: Confusion Labs: CBC, BMP 01/01/20 06:30 01/03/20 06:35 INR, PTT INR 1.17 (0.83-1.09) H 01/01/20 06:30 Assessment/Plan Current Medications Generic Name Dose Route Start Last Admin Trade Name Freq PRN Reason Stop Dose Admin Acetaminophen 1,000 mg 12/27/19 20:45 01/02/20 03:25 Tylenol - PO 1,000 mg Q6H PRN Administration PAIN Al Hydroxide/Mg Hydroxide 30 ml 12/27/19 20:45 Mylanta Oral Suspension - PO Q6H PRN DYSPEPSIA Atorvastatin Calcium 20 mg 12/27/19 22:00 10/13/20 21:26 Lipitor - PO Not Given HS [facility] Donepezil HCl 10 mg 12/26/19 10:00 01/03/20 10:50 Aricept - PO 10 mg DAILY [facility] Administration Furosemide 40 mg 12/28/19 06:00 01/03/20 06:45 Lasix Injection - IVPUSH 40 mg BID@0600,1400 [facility] Administration Heparin Sodium (Porcine) 5,000 unit 12/27/19 22:00 01/03/20 10:51 Heparin - SQ 5,000 unit BID [facility] Administration Hydralazine HCl 75 mg 12/27/19 22:00 01/03/20 06:44 Apresoline - PO 75 mg TID [facility] Administration Hydralazine HCl 10 mg 01/02/20 13:17 01/02/20 13:56 Apresoline Injection - IVPUSH 10 mg Q6H PRN Administration HYPERTENSION Insulin Aspart 1 vial 12/27/19 22:00 01/03/20 06:45 Novolog Vial Sliding Scale - SQ Not Given ACHS [facility] Protocol Labetalol HCl 300 mg 12/27/19 22:00 01/03/20 06:45 Normodyne - PO 300 mg TID [facility] Administration Levothyroxine Sodium 25 mcg 12/28/19 07:00 01/03/20 06:44 Synthroid - PO 25 mcg DAILY@0700 [facility] Administration Losartan Potassium 100 mg 12/28/19 10:00 01/03/20 10:50 Cozaar - PO 100 mg DAILY [facility] Administration Memantine 10 mg 12/25/19 22:00 01/03/20 10:51 Namenda - PO 10 mg BID [facility] Administration Mirtazapine 15 mg 12/25/19 18:43 01/02/20 21:27 Remeron - PO 15 mg HS [facility] Administration Multivitamins/Minerals/Vitamin C 1 tab 12/28/19 10:00 01/03/20 10:51 Tab-A-Vit - PO 1 tab DAILY [facility] Administration Nifedipine 90 mg 12/28/19 10:00 01/03/20 10:51 Procardia Xl - PO 90 mg DAILY [facility] Administration Pantoprazole Sodium 20 mg 12/28/19 10:00 01/03/20 10:51 Protonix - PO 20 mg DAILY [facility] Administration Polysaccharide Iron Complex 150 mg 12/28/19 10:00 01/03/20 10:52 Niferex-150 - PO 150 mg DAILY [facility] Administration Quetiapine Fumarate 25 mg 12/24/19 22:00 01/02/20 21:28 Seroquel - PO 25 mg HS [facility] Administration Senna/Docusate Sodium 2 tablet 12/27/19 22:00 01/02/20 21:27 Pericolace - PO Not Given HS [facility] Impression 1. JASPER 2. CKD 3. HLD 4. diverticulosis 5. HTN 6. DM 7. proteinuria 8. hypoalbuminemia 9. UTI 10. pleural effusion 11. chf 12. pericardial effusion without tamponade 13. fluid overload Impression - bp is improving - pending peg placement, family deciding - encourage po intake - pt does not always take meds - cont arb - avoid nsaids - avoid nephrotoxins
[2020-01-03] MEDS: ATORVASTATIN CA 20 MG TABLET (FP) PO SCH (21:19)
[2020-01-03] MEDS: QUEtiapine FUMARATE 25 MG TABLET PO SCH (21:19)
[2020-01-03] MEDS: SENNOSIDES/DOCUSATE COMBO (SENNA PLUS) TABLET (UD) PO SCH (21:20)
[2020-01-03] MEDS: MIRTAZAPINE 15 MG TABLET (FP) PO SCH (21:20)
[2020-01-04] MEDS: FUROSEMIDE 40 MG/4 ML INJECTABLE VIAL IVPUSH SCH (06:07)
[2020-01-04] MEDS: LEVOTHYROXINE NA 25 MCG TABLET (FP) PO SCH (06:10)
[2020-01-04] MEDS: hydrALAZINE HCL 20 MG/ML VIAL IVPUSH PRN (06:16)
[2020-01-04] MEDS: INSULIN SLIDING SCALE (NOVOLOG) 1 VIAL SQ SCH ×4 (06:22→22:34)
[2020-01-04] MEDS: hydrALAZINE HCL 25 MG TABLET (FP) PO SCH ×3 (06:23→22:33)
[2020-01-04] MEDS: LABETALOL HCL 100 MG TABLET (FP) PO SCH ×3 (06:23→22:33)
--- NOTE | 2020-01-04 08:42 | DS ---
Physical Examination Vital Signs: Vital Signs Temperature 98.1 F 01/04/20 07:35 Pulse Rate 65 01/04/20 07:35 Respiratory Rate 19 01/04/20 07:35 Blood Pressure 175/63 H 01/04/20 07:35 O2 Sat by Pulse Oximetry (%) 100 01/03/20 21:00 Cardiovascular: Yes: Regular Rate and Rhythm Respiratory: Yes: Regular, CTA Bilaterally Gastrointestinal: Yes: Normal Bowel Sounds, Soft Labs: CBC, BMP 01/01/20 06:30 01/03/20 06:35 Discharge Summary Problems reviewed: Yes Reason For Visit: CONGESTIVE HEART FAILURE,HYPERTENSION Current Active Problems CHF (congestive heart failure) (Acute) HTN (hypertension) (Acute) Hospital Course: CURRENT SITUATION DISCUSSED WITH LUCAS AND HER DAUGHTER GIOVANNY SINCE PT REFUSES AND SPITS OUT MEDS FREQUENTLY IT WILL BE DIFFICULT TO CONTROL AND MANGE HER CONDITION ESPECIALLY HER BP. PEG WILL BE BEST OPTION TO MANGE PATIENT FAMILY NOT CONSENTING FOR PEG AND OPTING FOR HOME WITH HOSPICE - Problems (1) Acute on chronic diastolic (congestive) heart failure Assessment/Plan: -Cardiology consult -Tele monitoring -Furosemide 40 mg IVP BID -Continue nifedipine 90 mg po daily -Continue labetalol 300 mg po tid -Continue losartan 100 mg po daily -Continue Hydralazine 75 mg po tid -Low sodium diet Problems reviewed: Yes Code(s): I50.33 - ACUTE ON CHRONIC DIASTOLIC (CONGESTIVE) HEART FAILURE (2) CKD (chronic kidney disease) Assessment/Plan: -Nephrology consult -Cr at baseline -monitor trend Problems reviewed: Yes Code(s): N18.9 - CHRONIC KIDNEY DISEASE, UNSPECIFIED Qualifiers: Chronic kidney disease stage: stage 5, not on chronic dialysis Qualified Code(s): N18.5 - Chronic kidney disease, stage 5 (3) HTN (hypertension) Assessment/Plan: -as above Problems reviewed: Yes Code(s): I10 - ESSENTIAL (PRIMARY) HYPERTENSION (4) Weakness Assessment/Plan: -physical therapy -Safety precautions Problems reviewed: Yes Code(s): R53.1 - WEAKNESS (5) Failure to thrive Assessment/Plan: -PEG placement -ASA on hold -Worsening dementia Problems reviewed: Yes Code(s): [id number] - Qualifiers: Failure to thrive age range: in adult Qualified Code(s): R62.7 - Adult failure to thrive (6) Parkinson disease Assessment/Plan: -Neurology consult appreciated Problems reviewed: Yes Code(s): G20 - PARKINSON'S DISEASE Condition: Fair - Instructions Referrals: Ro Espana MD [Primary Care Provider] - - Home Medications Comprehensive Discharge Medication List: Ambulatory Orders Levothyroxine [Synthroid -] 25 mcg PO DAILY 04/24/19 Aspirin 81 mg PO DAILY 04/25/19 Multivitamins [Multivit ([facility] Formulary)] 1 tab PO DAILY #30 tab 12/02/19 Pantoprazole Sodium [Protonix -] 20 mg PO DAILY #30 tablet.ec 12/02/19 Atorvastatin Ca [Lipitor] 20 mg PO HS tablet 12/12/19 Furosemide [Lasix -] 40 mg PO BID@0600,1400 tablet 12/12/19 Iron Polysaccharides [Niferex-150 -] 150 mg PO DAILY #30 capsule 12/12/19 Polyethylene Glycol 3350 [Miralax 119 gm Btl -] 17 gm PO BID bottle 12/12/19 Sennosides [Senna -] 2 tab PO HS PRN tablet 12/12/19 Donepezil HCl [Aricept -] 10 mg PO DAILY #30 tablet 01/04/20 Labetalol HCl [Normodyne -] 300 mg PO TID #270 tablet 01/04/20 Losartan Potassium [Cozaar -] 100 mg PO DAILY #60 tablet 01/04/20 Mag Hydrox/Al Hydrox/Simeth [Mylanta Oral Suspension -] 30 ml PO Q6H PRN cup 01/04/20 Memantine HCl [Namenda -] 10 mg PO BID #60 tablet 01/04/20 Mirtazapine [Remeron -] 15 mg PO HS #30 tablet 01/04/20 Nifedipine ER [Procardia XL -] 90 mg PO DAILY #30 tab.er.24 01/04/20 Quetiapine Fumarate [Seroquel -] 25 mg PO HS #30 tablet 01/04/20 Sennosides/Docusate Sodium [Pericolace -] 2 tablet PO HS tablet 01/04/20 hydrALAZINE HCL [Apresoline -] 75 mg PO TID #270 tablet 01/04/20
[2020-01-04] MEDS ORDERED: PT OWN MED DRAWER 7, Y5N ONE (09:09)
[2020-01-04] MEDS: MEMANTINE HCL 10 MG TABLET (FP) PO SCH ×2 (09:26→22:34)
[2020-01-04] MEDS: PANTOPRAZOLE 20 MG TABLET PO SCH (09:26)
[2020-01-04] MEDS: NIFEdipine E.R. 90 MG TABLET PO SCH (09:26)
[2020-01-04] MEDS: MULTIVITAMINS (DAILY MVI) TABLET (FP) PO SCH (09:26)
[2020-01-04] MEDS: DONEPEZIL HCL 10 MG TABLET (FP) PO SCH (09:26)
[2020-01-04] MEDS: IRON POLYSACCHARIDES 150 MG CAPSULE PO SCH ×2 (09:26→09:40)
[2020-01-04] MEDS: LOSARTAN POTASSIUM 50 MG TABLET PO SCH (09:26)
[2020-01-04] MEDS: HEPARIN NA (PORCINE) 5,000 UNITS/ML 1ML VIAL SQ SCH ×2 (09:26→22:35)
[2020-01-04 09:58] LABS: BASO % 1.1 % (0-2.0); EOS % 13.9 % (0-4.5); HEMATOCRIT 32.5 % (32.4-45.2); HEMOGLOBIN 10.6 GM/dL (10.7-15.3); LYMPH % 9.8 % (8-40); MCHC 32.5 g/dl (32.0-36.0); MEAN CELL VOLUME 83.2 fl (80-96); MEAN PLT VOLUME 7.5 fl (7.5-11.1); MONO % 11.7 % (3.8-10.2); NEUT % 63.5 % (42.8-82.8); PLATELET COUNT 331 K/MM3 (134-434); RBC 3.91 M/mm3 (3.60-5.2); RDW 18.6 % (11.6-15.6)
[2020-01-04 10:30] LABS: ALBUMIN 2.5 g/dl (3.4-5.0); BILIRUBIN,TOTAL 0.5 mg/dL (0.2-1); BLOOD UREA NITROGEN 24.6 mg/dL (7-18); CALCIUM 8.4 mg/dL (8.5-10.1); CREATININE 1.3 mg/dL (0.55-1.3); POTASSIUM 3.4 mmol/L (3.5-5.1); TOT PROT 5.5 g/dl (6.4-8.2)
--- NOTE | 2020-01-04 10:59 | PN ---
Progress Note, [employer] - Note Progress Note: Followed by Palliative care-Family agreed to a home hospice referral and refused G tube Pt ate 50% of dinner tray, requesting salt. Selected Entries 01/04/20 07:35 Temperature 98.1 F Pulse Rate 65 Blood Pressure 175/63 H Laboratory Tests 01/04/20 09:40 WBC 7.0 Seen lunchtime, not eating. Offered pt ketchup for her chicken with good acceptance. Pt fed by [employer], with some independent po intake. Seemed to enjoy chicken/ketchup and sweet potatoe, OJ. Asked for desert. Pending d/c Suggest: continue blenderized foods at home, with trial on soft mashed foods for easiest oral control/tolerance. PO as tolerated and desired. Add condiments, flavors she is accustom to at home. Continue Vanilla Glucerna at home, which she accepts and tolerates with ease, b/n meals.
[2020-01-04 12:24] VITALS: BMI 24.4
[2020-01-04] MEDS ORDERED: POTASSIUM CHLORIDE ORAL LIQUID 20 MEQ/15 ML PO ONE (13:39)
--- NOTE | 2020-01-04 13:42 | PN ---
Progress Note, Physician History of Present Illness: Pt seen and examined at bedside. She remains confused. She still takes her meds intermittently. - Current Medication List Current Medications: Active Medications Acetaminophen (Tylenol -) 1,000 mg PO Q6H PRN PRN Reason: PAIN Last Admin: 01/02/20 03:25 Dose: 1,000 mg Documented by: Al Hydroxide/Mg Hydroxide (Mylanta Oral Suspension -) 30 ml PO Q6H PRN PRN Reason: DYSPEPSIA Atorvastatin Calcium (Lipitor -) 20 mg PO [facility] Last Admin: 01/03/20 21:19 Dose: 20 mg Documented by: Donepezil HCl (Aricept -) 10 mg PO DAILY [facility] Last Admin: 01/04/20 09:26 Dose: 10 mg Documented by: Furosemide (Lasix -) 40 mg PO BID@0600,1400 [facility] Heparin Sodium (Porcine) (Heparin -) 5,000 unit SQ BID [facility] Last Admin: 01/04/20 09:26 Dose: 5,000 unit Documented by: Hydralazine HCl (Apresoline -) 75 mg PO TID [facility] Last Admin: 01/04/20 06:23 Dose: Not Given Documented by: Hydralazine HCl (Apresoline Injection -) 10 mg IVPUSH Q6H PRN PRN Reason: HYPERTENSION Last Admin: 01/04/20 06:16 Dose: 10 mg Documented by: Insulin Aspart (Novolog Vial Sliding Scale -) 1 vial SQ [facility]; Protocol Last Admin: 01/04/20 06:22 Dose: Not Given Documented by: Labetalol HCl (Normodyne -) 300 mg PO TID [facility] Last Admin: 01/04/20 06:23 Dose: Not Given Documented by: Levothyroxine Sodium (Synthroid -) 25 mcg PO DAILY@0700 [facility] Last Admin: 01/04/20 06:10 Dose: 25 mcg Documented by: Losartan Potassium (Cozaar -) 100 mg PO DAILY [facility] Last Admin: 01/04/20 09:26 Dose: 100 mg Documented by: Memantine (Namenda -) 10 mg PO BID [facility] Last Admin: 01/04/20 09:26 Dose: 10 mg Documented by: Mirtazapine (Remeron -) 15 mg PO [facility] Last Admin: 01/03/20 21:20 Dose: 15 mg Documented by: Multivitamins/Minerals/Vitamin C (Tab-A-Vit -) 1 tab PO DAILY [facility] Last Admin: 01/04/20 09:26 Dose: 1 tab Documented by: Nifedipine (Procardia Xl -) 90 mg PO DAILY [facility] Last Admin: 01/04/20 09:26 Dose: 90 mg Documented by: Pantoprazole Sodium (Protonix -) 20 mg PO DAILY [facility] Last Admin: 01/04/20 09:26 Dose: 20 mg Documented by: Polysaccharide Iron Complex (Niferex-150 -) 150 mg PO DAILY [facility] Last Admin: 01/04/20 09:40 Dose: Not Given Documented by: Quetiapine Fumarate (Seroquel -) 25 mg PO [facility] Last Admin: 01/03/20 21:19 Dose: 25 mg Documented by: Senna/Docusate Sodium (Pericolace -) 2 tablet PO [facility] Last Admin: 01/03/20 21:20 Dose: 2 tablet Documented by: - Objective Vital Signs: Vital Signs Temperature 98.4 F 01/04/20 09:00 Pulse Rate 62 01/04/20 09:00 Respiratory Rate 14 01/04/20 09:00 Blood Pressure 206/86 H 01/04/20 09:00 O2 Sat by Pulse Oximetry (%) 100 01/04/20 09:00 Constitutional: Yes: Calm Eyes: Yes: Conjunctiva Clear HENT: Yes: Atraumatic Cardiovascular: Yes: S1, S2 Respiratory: Yes: CTA Bilaterally Gastrointestinal: Yes: Normal Bowel Sounds, Soft Genitourinary: Yes: WNL Musculoskeletal: Yes: WNL Edema: No Neurological: Yes: Confusion Labs: CBC, BMP 01/04/20 09:40 01/04/20 09:40 INR, PTT INR 1.17 (0.83-1.09) H 01/01/20 06:30 Assessment/Plan Current Medications Generic Name Dose Route Start Last Admin Trade Name Freq PRN Reason Stop Dose Admin Acetaminophen 1,000 mg 12/27/19 20:45 01/02/20 03:25 Tylenol - PO 1,000 mg Q6H PRN Administration PAIN Al Hydroxide/Mg Hydroxide 30 ml 12/27/19 20:45 Mylanta Oral Suspension - PO Q6H PRN DYSPEPSIA Atorvastatin Calcium 20 mg 12/27/19 22:00 01/03/20 21:19 Lipitor - PO 20 mg HS [facility] Administration Donepezil HCl 10 mg 12/26/19 10:00 01/04/20 09:26 Aricept - PO 10 mg DAILY [facility] Administration Furosemide 40 mg 01/04/20 14:00 Lasix - PO BID@0600,1400 [facility] Heparin Sodium (Porcine) 5,000 unit 12/27/19 22:00 01/04/20 09:26 Heparin - SQ 5,000 unit BID [facility] Administration Hydralazine HCl 75 mg 12/27/19 22:00 01/04/20 06:23 Apresoline - PO Not Given TID [facility] Hydralazine HCl 10 mg 01/02/20 13:17 01/04/20 06:16 Apresoline Injection - IVPUSH 10 mg Q6H PRN Administration HYPERTENSION Insulin Aspart 1 vial 12/27/19 22:00 01/04/20 06:22 Novolog Vial Sliding Scale - SQ Not Given ACHS [facility] Protocol Labetalol HCl 300 mg 12/27/19 22:00 01/04/20 06:23 Normodyne - PO Not Given TID [facility] Levothyroxine Sodium 25 mcg 12/28/19 07:00 01/04/20 06:10 Synthroid - PO 25 mcg DAILY@0700 [facility] Administration Losartan Potassium 100 mg 12/28/19 10:00 01/04/20 09:26 Cozaar - PO 100 mg DAILY [facility] Administration Memantine 10 mg 12/25/19 22:00 01/04/20 09:26 Namenda - PO 10 mg BID [facility] Administration Mirtazapine 15 mg 12/25/19 18:43 01/03/20 21:20 Remeron - PO 15 mg HS [facility] Administration Multivitamins/Minerals/Vitamin C 1 tab 12/28/19 10:00 01/04/20 09:26 Tab-A-Vit - PO 1 tab DAILY [facility] Administration Nifedipine 90 mg 12/28/19 10:00 01/04/20 09:26 Procardia Xl - PO 90 mg DAILY [facility] Administration Pantoprazole Sodium 20 mg 12/28/19 10:00 01/04/20 09:26 Protonix - PO 20 mg DAILY [facility] Administration Polysaccharide Iron Complex 150 mg 12/28/19 10:00 01/04/20 09:40 Niferex-150 - PO Not Given DAILY [facility] Potassium Chloride 40 meq 01/04/20 13:39 Potassium Chloride Oral Liquid PO 01/04/20 13:40 ONCE ONE Quetiapine Fumarate 25 mg 12/24/19 22:00 01/03/20 21:19 Seroquel - PO 25 mg HS [facility] Administration Senna/Docusate Sodium 2 tablet 12/27/19 22:00 01/03/20 21:20 Pericolace - PO 2 tablet HS [facility] Administration Impression 1. JASPER 2. CKD 3. HLD 4. diverticulosis 5. HTN 6. DM 7. proteinuria 8. hypoalbuminemia 9. UTI 10. pleural effusion 11. chf 12. pericardial effusion without tamponade 13. fluid overload Impression - cont to monitor bp - lasix switched to PO - monitor volume status - pt needs assistance with eating - cont arb - avoid nsaids - avoid nephrotoxins
[2020-01-04] MEDS: FUROSEMIDE 40 MG TABLET (FP) PO SCH (14:51)
[2020-01-04] MEDS: MIRTAZAPINE 15 MG TABLET (FP) PO SCH (22:33)
[2020-01-04] MEDS: QUEtiapine FUMARATE 25 MG TABLET PO SCH (22:34)
[2020-01-04] MEDS: ATORVASTATIN CA 20 MG TABLET (FP) PO SCH (22:34)
[2020-01-04] MEDS: SENNOSIDES/DOCUSATE COMBO (SENNA PLUS) TABLET (UD) PO SCH (22:34)
[2020-01-04] MEDS: ACETAMINOPHEN 500 MG TABLET (FP) PO PRN (22:34)
[2020-01-05] MEDS: hydrALAZINE HCL 20 MG/ML VIAL IVPUSH PRN ×2 (05:55→12:03)
[2020-01-05] MEDS: FUROSEMIDE 40 MG TABLET (FP) PO SCH ×2 (05:56→14:03)
[2020-01-05] MEDS: hydrALAZINE HCL 25 MG TABLET (FP) PO SCH ×3 (05:56→21:12)
[2020-01-05] MEDS: LABETALOL HCL 100 MG TABLET (FP) PO SCH ×3 (05:56→21:12)
[2020-01-05] MEDS: INSULIN SLIDING SCALE (NOVOLOG) 1 VIAL SQ SCH ×4 (06:35→21:13)
[2020-01-05] MEDS: LEVOTHYROXINE NA 25 MCG TABLET (FP) PO SCH (06:35)
--- NOTE | 2020-01-05 09:06 | DS ---
Physical Examination Vital Signs: Vital Signs Temperature 98.4 F 01/05/20 06:00 Pulse Rate 60 01/05/20 06:00 Respiratory Rate 18 01/05/20 06:00 Blood Pressure 204/70 H 01/05/20 06:00 O2 Sat by Pulse Oximetry (%) 100 01/04/20 22:00 Cardiovascular: Yes: Regular Rate and Rhythm Respiratory: Yes: Regular, CTA Bilaterally Gastrointestinal: Yes: Normal Bowel Sounds, Soft Neurological: Yes: Alert, Confusion Labs: CBC, BMP 01/04/20 09:40 01/04/20 09:40 Discharge Summary Problems reviewed: Yes Reason For Visit: CONGESTIVE HEART FAILURE,HYPERTENSION Current Active Problems CHF (congestive heart failure) (Acute) HTN (hypertension) (Acute) Hospital Course: CURRENT SITUATION DISCUSSED WITH LUCAS AND HER DAUGHTER GIOVANNY SINCE PT REFUSES AND SPITS OUT MEDS FREQUENTLY IT WILL BE DIFFICULT TO CONTROL AND MANGE HER CONDITION ESPECIALLY HER BP. PEG WILL BE BEST OPTION TO MANGE PATIENT FAMILY NOT CONSENTING FOR PEG AND OPTING FOR HOME WITH HOSPICE - Problems (1) Acute on chronic diastolic (congestive) heart failure Assessment/Plan: -Cardiology consult -Tele monitoring -Furosemide 40 mg IVP BID -Continue nifedipine 90 mg po daily -Continue labetalol 300 mg po tid -Continue losartan 100 mg po daily -Continue Hydralazine 75 mg po tid -Low sodium diet Problems reviewed: Yes Code(s): I50.33 - ACUTE ON CHRONIC DIASTOLIC (CONGESTIVE) HEART FAILURE (2) CKD (chronic kidney disease) Assessment/Plan: -Nephrology consult -Cr at baseline -monitor trend Problems reviewed: Yes Code(s): N18.9 - CHRONIC KIDNEY DISEASE, UNSPECIFIED Qualifiers: Chronic kidney disease stage: stage 5, not on chronic dialysis Qualified Code(s): N18.5 - Chronic kidney disease, stage 5 (3) HTN (hypertension) Assessment/Plan: -as above Problems reviewed: Yes Code(s): I10 - ESSENTIAL (PRIMARY) HYPERTENSION (4) Weakness Assessment/Plan: -physical therapy -Safety precautions Problems reviewed: Yes Code(s): R53.1 - WEAKNESS (5) Failure to thrive Assessment/Plan: -PEG placement -ASA on hold -Worsening dementia Problems reviewed: Yes Code(s): [id number] - Qualifiers: Failure to thrive age range: in adult Qualified Code(s): R62.7 - Adult failure to thrive (6) Parkinson disease Assessment/Plan: -Neurology consult appreciated Problems reviewed: Yes Code(s): G20 - PARKINSON'S DISEASE Condition: Fair - Instructions Referrals: Ro Espana MD [Primary Care Provider] - - Home Medications Comprehensive Discharge Medication List: Ambulatory Orders Levothyroxine [Synthroid -] 25 mcg PO DAILY 04/24/19 Aspirin 81 mg PO DAILY 04/25/19 Multivitamins [Multivit ([facility] Formulary)] 1 tab PO DAILY #30 tab 12/02/19 Pantoprazole Sodium [Protonix -] 20 mg PO DAILY #30 tablet.ec 12/02/19 Atorvastatin Ca [Lipitor] 20 mg PO HS tablet 12/12/19 Furosemide [Lasix -] 40 mg PO BID@0600,1400 tablet 12/12/19 Iron Polysaccharides [Niferex-150 -] 150 mg PO DAILY #30 capsule 12/12/19 Polyethylene Glycol 3350 [Miralax 119 gm Btl -] 17 gm PO BID bottle 12/12/19 Sennosides [Senna -] 2 tab PO HS PRN tablet 12/12/19 Donepezil HCl [Aricept -] 10 mg PO DAILY #30 tablet 01/04/20 Labetalol HCl [Normodyne -] 300 mg PO TID #270 tablet 01/04/20 Losartan Potassium [Cozaar -] 100 mg PO DAILY #60 tablet 01/04/20 Mag Hydrox/Al Hydrox/Simeth [Mylanta Oral Suspension -] 30 ml PO Q6H PRN cup 01/04/20 Memantine HCl [Namenda -] 10 mg PO BID #60 tablet 01/04/20 Mirtazapine [Remeron -] 15 mg PO HS #30 tablet 01/04/20 Nifedipine ER [Procardia XL -] 90 mg PO DAILY #30 tab.er.24 01/04/20 Quetiapine Fumarate [Seroquel -] 25 mg PO HS #30 tablet 01/04/20 Sennosides/Docusate Sodium [Pericolace -] 2 tablet PO HS tablet 01/04/20 hydrALAZINE HCL [Apresoline -] 75 mg PO TID #270 tablet 01/04/20
[2020-01-05] MEDS ORDERED: PT OWN MED DRAWER 7, Y5N ONE (09:58)
[2020-01-05] MEDS: LOSARTAN POTASSIUM 50 MG TABLET PO SCH (10:17)
[2020-01-05] MEDS: NIFEdipine E.R. 90 MG TABLET PO SCH (10:18)
[2020-01-05] MEDS: MULTIVITAMINS (DAILY MVI) TABLET (FP) PO SCH (10:18)
[2020-01-05] MEDS: HEPARIN NA (PORCINE) 5,000 UNITS/ML 1ML VIAL SQ SCH ×2 (10:18→21:13)
[2020-01-05] MEDS: PANTOPRAZOLE 20 MG TABLET PO SCH (10:18)
[2020-01-05] MEDS: MEMANTINE HCL 10 MG TABLET (FP) PO SCH ×2 (10:18→21:14)
[2020-01-05] MEDS: DONEPEZIL HCL 10 MG TABLET (FP) PO SCH (10:18)
[2020-01-05] MEDS: IRON POLYSACCHARIDES 150 MG CAPSULE PO SCH (10:31)
--- NOTE | 2020-01-05 12:35 | PN ---
Progress Note, Physician History of Present Illness: Pt seen and examined at bedside. She is awake but confused. - Current Medication List Current Medications: Active Medications Acetaminophen (Tylenol -) 1,000 mg PO Q6H PRN PRN Reason: PAIN Last Admin: 01/04/20 22:34 Dose: 1,000 mg Documented by: Al Hydroxide/Mg Hydroxide (Mylanta Oral Suspension -) 30 ml PO Q6H PRN PRN Reason: DYSPEPSIA Atorvastatin Calcium (Lipitor -) 20 mg PO HS [facility] Last Admin: 01/04/20 22:34 Dose: 20 mg Documented by: Donepezil HCl (Aricept -) 10 mg PO DAILY [facility] Last Admin: 01/05/20 10:18 Dose: Not Given Documented by: Furosemide (Lasix -) 40 mg PO BID@0600,1400 [facility] Last Admin: 01/05/20 05:56 Dose: Not Given Documented by: Heparin Sodium (Porcine) (Heparin -) 5,000 unit SQ BID [facility] Last Admin: 01/05/20 10:18 Dose: 5,000 unit Documented by: Hydralazine HCl (Apresoline -) 75 mg PO TID [facility] Last Admin: 01/05/20 05:56 Dose: Not Given Documented by: Hydralazine HCl (Apresoline Injection -) 10 mg IVPUSH Q6H PRN PRN Reason: HYPERTENSION Last Admin: 01/05/20 05:55 Dose: 10 mg Documented by: Insulin Aspart (Novolog Vial Sliding Scale -) 1 vial SQ [facility]; Protocol Last Admin: 01/05/20 11:44 Dose: Not Given Documented by: Labetalol HCl (Normodyne -) 300 mg PO TID [facility] Last Admin: 01/05/20 05:56 Dose: Not Given Documented by: Levothyroxine Sodium (Synthroid -) 25 mcg PO DAILY@0700 [facility] Last Admin: 01/05/20 06:35 Dose: Not Given Documented by: Losartan Potassium (Cozaar -) 100 mg PO DAILY [facility] Last Admin: 01/05/20 10:17 Dose: 100 mg Documented by: Memantine (Namenda -) 10 mg PO BID [facility] Last Admin: 01/05/20 10:18 Dose: Not Given Documented by: Mirtazapine (Remeron -) 15 mg PO [facility] Last Admin: 01/04/20 22:33 Dose: 15 mg Documented by: Multivitamins/Minerals/Vitamin C (Tab-A-Vit -) 1 tab PO DAILY [facility] Last Admin: 01/05/20 10:18 Dose: Not Given Documented by: Nifedipine (Procardia Xl -) 90 mg PO DAILY [facility] Last Admin: 01/05/20 10:18 Dose: 90 mg Documented by: Pantoprazole Sodium (Protonix -) 20 mg PO DAILY [facility] Last Admin: 01/05/20 10:18 Dose: Not Given Documented by: Polysaccharide Iron Complex (Niferex-150 -) 150 mg PO DAILY [facility] Last Admin: 01/05/20 10:31 Dose: Not Given Documented by: Quetiapine Fumarate (Seroquel -) 25 mg PO [facility] Last Admin: 01/04/20 22:34 Dose: 25 mg Documented by: Senna/Docusate Sodium (Pericolace -) 2 tablet PO [facility] Last Admin: 01/04/20 22:34 Dose: 2 tablet Documented by: - Objective Vital Signs: Vital Signs Temperature 98.6 F 01/05/20 10:00 Pulse Rate 66 01/05/20 10:00 Respiratory Rate 18 01/05/20 10:00 Blood Pressure 186/67 H 01/05/20 10:00 O2 Sat by Pulse Oximetry (%) 100 01/05/20 10:00 Constitutional: Yes: Calm Eyes: Yes: Conjunctiva Clear HENT: Yes: Atraumatic Cardiovascular: Yes: S1, S2 Respiratory: Yes: CTA Bilaterally Gastrointestinal: Yes: Normal Bowel Sounds, Soft Genitourinary: Yes: Incontinence Musculoskeletal: Yes: WNL Edema: No Neurological: Yes: Confusion Psychiatric: Yes: Oriented Labs: CBC, BMP 01/04/20 09:40 01/04/20 09:40 INR, PTT INR 1.17 (0.83-1.09) H 01/01/20 06:30 Assessment/Plan Current Medications Generic Name Dose Route Start Last Admin Trade Name Freq PRN Reason Stop Dose Admin Acetaminophen 1,000 mg 12/27/19 20:45 01/04/20 22:34 Tylenol - PO 1,000 mg Q6H PRN Administration PAIN Al Hydroxide/Mg Hydroxide 30 ml 12/27/19 20:45 Mylanta Oral Suspension - PO Q6H PRN DYSPEPSIA Atorvastatin Calcium 20 mg 12/27/19 22:00 10/15/20 22:34 Lipitor - PO 20 mg HS [facility] Administration Donepezil HCl 10 mg 12/26/19 10:00 01/05/20 10:18 Aricept - PO Not Given DAILY [facility] Furosemide 40 mg 01/04/20 14:00 01/05/20 05:56 Lasix - PO Not Given BID@0600,1400 [facility] Heparin Sodium (Porcine) 5,000 unit 12/27/19 22:00 01/05/20 10:18 Heparin - SQ 5,000 unit BID [facility] Administration Hydralazine HCl 75 mg 12/27/19 22:00 01/05/20 05:56 Apresoline - PO Not Given TID [facility] Hydralazine HCl 10 mg 01/02/20 13:17 01/05/20 05:55 Apresoline Injection - IVPUSH 10 mg Q6H PRN Administration HYPERTENSION Insulin Aspart 1 vial 12/27/19 22:00 01/05/20 11:44 Novolog Vial Sliding Scale - SQ Not Given ACHS [facility] Protocol Labetalol HCl 300 mg 12/27/19 22:00 01/05/20 05:56 Normodyne - PO Not Given TID [facility] Levothyroxine Sodium 25 mcg 12/28/19 07:00 01/05/20 06:35 Synthroid - PO Not Given DAILY@0700 [facility] Losartan Potassium 100 mg 12/28/19 10:00 01/05/20 10:17 Cozaar - PO 100 mg DAILY [facility] Administration Memantine 10 mg 12/25/19 22:00 01/05/20 10:18 Namenda - PO Not Given BID [facility] Mirtazapine 15 mg 12/25/19 18:43 01/04/20 22:33 Remeron - PO 15 mg HS [facility] Administration Multivitamins/Minerals/Vitamin C 1 tab 12/28/19 10:00 01/05/20 10:18 Tab-A-Vit - PO Not Given DAILY [facility] Nifedipine 90 mg 12/28/19 10:00 01/05/20 10:18 Procardia Xl - PO 90 mg DAILY [facility] Administration Pantoprazole Sodium 20 mg 12/28/19 10:00 01/05/20 10:18 Protonix - PO Not Given DAILY [facility] Polysaccharide Iron Complex 150 mg 12/28/19 10:00 10/16/20 10:31 Niferex-150 - PO Not Given DAILY [facility] Quetiapine Fumarate 25 mg 12/24/19 22:00 01/04/20 22:34 Seroquel - PO 25 mg HS [facility] Administration Senna/Docusate Sodium 2 tablet 12/27/19 22:00 01/04/20 22:34 Pericolace - PO 2 tablet HS [facility] Administration Impression 1. JASPER 2. CKD 3. HLD 4. diverticulosis 5. HTN 6. DM 7. proteinuria 8. hypoalbuminemia 9. UTI 10. pleural effusion 11. chf 12. pericardial effusion without tamponade 13. fluid overload Impression - pt going home - family do not want peg - encourage compliance with meds - bp will be difficult to control if she is taking her meds - pt needs assistance with eating - cont arb - avoid nsaids - avoid nephrotoxins
[2020-01-05] MEDS: MIRTAZAPINE 15 MG TABLET (FP) PO SCH (21:13)
[2020-01-05] MEDS: QUEtiapine FUMARATE 25 MG TABLET PO SCH (21:13)
[2020-01-05] MEDS: SENNOSIDES/DOCUSATE COMBO (SENNA PLUS) TABLET (UD) PO SCH (21:14)
[2020-01-05] MEDS: ATORVASTATIN CA 20 MG TABLET (FP) PO SCH (21:14)
[2020-01-06] MEDS: hydrALAZINE HCL 20 MG/ML VIAL IVPUSH PRN (02:06)
[2020-01-06] MEDS: LABETALOL HCL 100 MG TABLET (FP) PO SCH ×3 (06:13→22:12)
[2020-01-06] MEDS: INSULIN SLIDING SCALE (NOVOLOG) 1 VIAL SQ SCH ×4 (06:13→22:13)
[2020-01-06] MEDS: LEVOTHYROXINE NA 25 MCG TABLET (FP) PO SCH (06:13)
[2020-01-06] MEDS: FUROSEMIDE 40 MG TABLET (FP) PO SCH ×2 (06:13→15:19)
[2020-01-06] MEDS: hydrALAZINE HCL 25 MG TABLET (FP) PO SCH ×3 (06:13→22:12)
[2020-01-06] MEDS ORDERED: LABETALOL HCL 5 MG/1 ML (100MG/20 ML VIAL) IVPUSH ONE (06:37)
[2020-01-06] MEDS ORDERED: PT OWN MED DRAWER 7, Y5N ONE ×2 (08:51→10:57)
[2020-01-06] MEDS: LOSARTAN POTASSIUM 50 MG TABLET PO SCH (09:40)
[2020-01-06] MEDS: IRON POLYSACCHARIDES 150 MG CAPSULE PO SCH (09:40)
[2020-01-06] MEDS: HEPARIN NA (PORCINE) 5,000 UNITS/ML 1ML VIAL SQ SCH ×2 (09:40→22:13)
[2020-01-06] MEDS: NIFEdipine E.R. 90 MG TABLET PO SCH (09:40)
[2020-01-06] MEDS: PANTOPRAZOLE 20 MG TABLET PO SCH (09:40)
[2020-01-06] MEDS: MEMANTINE HCL 10 MG TABLET (FP) PO SCH ×2 (09:40→22:12)
[2020-01-06] MEDS: DONEPEZIL HCL 10 MG TABLET (FP) PO SCH (09:40)
[2020-01-06] MEDS: MULTIVITAMINS (DAILY MVI) TABLET (FP) PO SCH (09:41)
--- NOTE | 2020-01-06 11:14 | PN ---
Progress Note, Physician Chief Complaint: HTN Dementia History of Present Illness: Previous notes and events reviewed awake and alert NAD complain of pain to back denies chest pain or SOB continue with poor po intake labile BP--this AM 207/71 after meds 123/41 - Current Medication List Current Medications: Active Medications Acetaminophen (Tylenol -) 1,000 mg PO Q6H PRN PRN Reason: PAIN Last Admin: 01/04/20 22:34 Dose: 1,000 mg Documented by: Al Hydroxide/Mg Hydroxide (Mylanta Oral Suspension -) 30 ml PO Q6H PRN PRN Reason: DYSPEPSIA Atorvastatin Calcium (Lipitor -) 20 mg PO HS [facility] Last Admin: 01/05/20 21:14 Dose: Not Given Documented by: Donepezil HCl (Aricept -) 10 mg PO DAILY [facility] Last Admin: 01/06/20 09:40 Dose: Not Given Documented by: Furosemide (Lasix -) 40 mg PO BID@0600,1400 [facility] Last Admin: 01/06/20 06:13 Dose: Not Given Documented by: Heparin Sodium (Porcine) (Heparin -) 5,000 unit SQ BID [facility] Last Admin: 01/06/20 09:40 Dose: 5,000 unit Documented by: Hydralazine HCl (Apresoline -) 75 mg PO TID [facility] Last Admin: 01/06/20 06:13 Dose: Not Given Documented by: Hydralazine HCl (Apresoline Injection -) 10 mg IVPUSH Q6H PRN PRN Reason: HYPERTENSION Last Admin: 01/06/20 02:06 Dose: 10 mg Documented by: Insulin Aspart (Novolog Vial Sliding Scale -) 1 vial SQ [facility]; Protocol Last Admin: 01/06/20 06:13 Dose: Not Given Documented by: Labetalol HCl (Normodyne -) 300 mg PO TID [facility] Last Admin: 01/06/20 06:13 Dose: Not Given Documented by: Levothyroxine Sodium (Synthroid -) 25 mcg PO DAILY@0700 [facility] Last Admin: 01/06/20 06:13 Dose: Not Given Documented by: Losartan Potassium (Cozaar -) 100 mg PO DAILY [facility] Last Admin: 01/06/20 09:40 Dose: 100 mg Documented by: Memantine (Namenda -) 10 mg PO BID [facility] Last Admin: 01/06/20 09:40 Dose: Not Given Documented by: Mirtazapine (Remeron -) 15 mg PO [facility] Last Admin: 01/05/20 21:13 Dose: Not Given Documented by: Multivitamins/Minerals/Vitamin C (Tab-A-Vit -) 1 tab PO DAILY [facility] Last Admin: 01/06/20 09:41 Dose: Not Given Documented by: Nifedipine (Procardia Xl -) 90 mg PO DAILY [facility] Last Admin: 01/06/20 09:40 Dose: 90 mg Documented by: Pantoprazole Sodium (Protonix -) 20 mg PO DAILY [facility] Last Admin: 01/06/20 09:40 Dose: Not Given Documented by: Polysaccharide Iron Complex (Niferex-150 -) 150 mg PO DAILY [facility] Last Admin: 01/06/20 09:40 Dose: Not Given Documented by: Quetiapine Fumarate (Seroquel -) 25 mg PO [facility] Last Admin: 01/05/20 21:13 Dose: Not Given Documented by: Senna/Docusate Sodium (Pericolace -) 2 tablet PO [facility] Last Admin: 01/05/20 21:14 Dose: Not Given Documented by: - Objective Vital Signs: Vital Signs Temperature 98.6 F 01/06/20 10:00 Pulse Rate 61 01/06/20 11:11 Respiratory Rate 18 01/06/20 11:11 Blood Pressure 114/44 L 01/06/20 11:11 O2 Sat by Pulse Oximetry (%) 100 01/06/20 11:11 Constitutional: Yes: No Distress, Calm Eyes: Yes: Conjunctiva Clear HENT: Yes: Atraumatic Cardiovascular: Yes: Regular Rate and Rhythm Respiratory: Yes: Regular, Diminished, On Nasal O2 Gastrointestinal: Yes: Normal Bowel Sounds, Soft Genitourinary: Yes: Incontinence Musculoskeletal: Yes: Muscle Weakness Extremities: Yes: WNL Edema: No Neurological: Yes: Alert, Pre-Existing Deficit Psychiatric: Yes: Alert Labs: CBC, BMP 01/04/20 09:40 01/04/20 09:40 INR, PTT INR 1.17 (0.83-1.09) H 01/01/20 06:30 Microbiology 12/18/19 01:56 Urine - Urine Clean Catch Urine Culture - Final NO GROWTH OBTAINED Problem List - Problems (1) CHF (congestive heart failure) Assessment/Plan: Cardiology on board Tele monitoring Furosemide BID low Na diet BNP >53882 CXR shows bilateral effusions with congestive and infiltrative/atelectatic findings Code(s): I50.9 - HEART FAILURE, UNSPECIFIED Qualifiers: Heart failure type: unspecified Heart failure chronicity: acute on chronic Qualified Code(s): I50.9 - Heart failure, unspecified (2) HTN (hypertension) Assessment/Plan: Cardiology on board BP labile Continue Nifedipine, Labetolol, Losartan, Hydralazine low Na diet monitor BP Code(s): I10 - ESSENTIAL (PRIMARY) HYPERTENSION (3) JASPER (acute kidney injury) Assessment/Plan: BUN/Cr 24.6/1.3 Renal on board avoid NSAIDs Code(s): N17.9 - ACUTE KIDNEY FAILURE, UNSPECIFIED (4) Dementia Assessment/Plan: Aricept Code(s): F03.90 - UNSPECIFIED DEMENTIA WITHOUT BEHAVIORAL DISTURBANCE Assessment/Plan see problem list Home hospice with [facility]--will be discharged home on Wednesday
[2020-01-06] MEDS: MIRTAZAPINE 15 MG TABLET (FP) PO SCH (22:12)
[2020-01-06] MEDS: QUEtiapine FUMARATE 25 MG TABLET PO SCH (22:12)
[2020-01-06] MEDS: SENNOSIDES/DOCUSATE COMBO (SENNA PLUS) TABLET (UD) PO SCH (22:13)
[2020-01-06] MEDS: ATORVASTATIN CA 20 MG TABLET (FP) PO SCH (22:13)
[2020-01-07] MEDS: hydrALAZINE HCL 20 MG/ML VIAL IVPUSH PRN (06:39)
[2020-01-07] MEDS: FUROSEMIDE 40 MG TABLET (FP) PO SCH ×2 (06:39→13:47)
[2020-01-07] MEDS: LEVOTHYROXINE NA 25 MCG TABLET (FP) PO SCH (06:39)
[2020-01-07] MEDS: INSULIN SLIDING SCALE (NOVOLOG) 1 VIAL SQ SCH ×3 (06:39→17:26)
[2020-01-07] MEDS: LABETALOL HCL 100 MG TABLET (FP) PO SCH ×2 (06:39→13:51)
[2020-01-07] MEDS: hydrALAZINE HCL 25 MG TABLET (FP) PO SCH ×2 (06:39→13:47)
[2020-01-07 07:21] LABS: HEMATOCRIT 31.2 % (32.4-45.2); HEMOGLOBIN 10.4 GM/dL (10.7-15.3); MCHC 33.5 g/dl (32.0-36.0); MEAN CELL VOLUME 83.6 fl (80-96); MEAN PLT VOLUME 7.7 fl (7.5-11.1); PLATELET COUNT 313 K/MM3 (134-434); RBC 3.73 M/mm3 (3.60-5.2); RDW 18.1 % (11.6-15.6); WHITE BLOOD COUNT 6.3 K/mm3 (4.0-10.0)
[2020-01-07 07:49] LABS: POTASSIUM 3.9 mmol/L (3.5-5.1)
[2020-01-07 08:00] LABS: CALCIUM 8.5 mg/dL (8.5-10.1)
[2020-01-07 08:01] LABS: ALBUMIN 2.4 g/dl (3.4-5.0); BLOOD UREA NITROGEN 24.3 mg/dL (7-18)
[2020-01-07 08:04] LABS: CREATININE 1.3 mg/dL (0.55-1.3)
[2020-01-07 08:05] LABS: BILIRUBIN,TOTAL 0.5 mg/dL (0.2-1); TOT PROT 5.2 g/dl (6.4-8.2)
[2020-01-07] MEDS ORDERED: PT OWN MED DRAWER 7, Y5N ONE (09:05)
[2020-01-07] MEDS: LOSARTAN POTASSIUM 50 MG TABLET PO SCH (09:12)
[2020-01-07] MEDS: NIFEdipine E.R. 90 MG TABLET PO SCH (09:12)
[2020-01-07] MEDS: DONEPEZIL HCL 10 MG TABLET (FP) PO SCH (09:12)
[2020-01-07] MEDS: HEPARIN NA (PORCINE) 5,000 UNITS/ML 1ML VIAL SQ SCH (09:13)
[2020-01-07] MEDS: MULTIVITAMINS (DAILY MVI) TABLET (FP) PO SCH (09:24)
[2020-01-07] MEDS: PANTOPRAZOLE 20 MG TABLET PO SCH (09:24)
[2020-01-07] MEDS: MEMANTINE HCL 10 MG TABLET (FP) PO SCH (09:24)
[2020-01-07] MEDS: IRON POLYSACCHARIDES 150 MG CAPSULE PO SCH (09:24)
--- NOTE | 2020-01-07 10:32 | PN ---
Progress Note, Physician Chief Complaint: HTN Dementia History of Present Illness: Previous notes and events reviewed awake and alert NAD complain of pain to back denies chest pain or SOB continue with poor po intake BP continues to be labile - Current Medication List Current Medications: Active Medications Acetaminophen (Tylenol -) 1,000 mg PO Q6H PRN PRN Reason: PAIN Last Admin: 01/04/20 22:34 Dose: 1,000 mg Documented by: Al Hydroxide/Mg Hydroxide (Mylanta Oral Suspension -) 30 ml PO Q6H PRN PRN Reason: DYSPEPSIA Atorvastatin Calcium (Lipitor -) 20 mg PO HS [facility] Last Admin: 01/06/20 22:13 Dose: Not Given Documented by: Donepezil HCl (Aricept -) 10 mg PO DAILY [facility] Last Admin: 01/07/20 09:12 Dose: 10 mg Documented by: Furosemide (Lasix -) 40 mg PO BID@0600,1400 [facility] Last Admin: 01/07/20 06:39 Dose: 40 mg Documented by: Heparin Sodium (Porcine) (Heparin -) 5,000 unit SQ BID [facility] Last Admin: 01/07/20 09:13 Dose: 5,000 unit Documented by: Hydralazine HCl (Apresoline -) 75 mg PO TID [facility] Last Admin: 01/07/20 06:39 Dose: Not Given Documented by: Hydralazine HCl (Apresoline Injection -) 10 mg IVPUSH Q6H PRN PRN Reason: HYPERTENSION Last Admin: 01/07/20 06:39 Dose: 10 mg Documented by: Insulin Aspart (Novolog Vial Sliding Scale -) 1 vial SQ [facility]; Protocol Last Admin: 01/07/20 06:39 Dose: Not Given Documented by: Labetalol HCl (Normodyne -) 300 mg PO TID [facility] Last Admin: 01/07/20 06:39 Dose: 300 mg Documented by: Levothyroxine Sodium (Synthroid -) 25 mcg PO DAILY@0700 [facility] Last Admin: 01/07/20 06:39 Dose: Not Given Documented by: Losartan Potassium (Cozaar -) 100 mg PO DAILY [facility] Last Admin: 01/07/20 09:12 Dose: 100 mg Documented by: Memantine (Namenda -) 10 mg PO BID [facility] Last Admin: 01/07/20 09:24 Dose: Not Given Documented by: Mirtazapine (Remeron -) 15 mg PO [facility] Last Admin: 01/06/20 22:12 Dose: 15 mg Documented by: Multivitamins/Minerals/Vitamin C (Tab-A-Vit -) 1 tab PO DAILY [facility] Last Admin: 01/07/20 09:24 Dose: Not Given Documented by: Nifedipine (Procardia Xl -) 90 mg PO DAILY [facility] Last Admin: 01/07/20 09:12 Dose: 90 mg Documented by: Pantoprazole Sodium (Protonix -) 20 mg PO DAILY [facility] Last Admin: 01/07/20 09:24 Dose: Not Given Documented by: Polysaccharide Iron Complex (Niferex-150 -) 150 mg PO DAILY [facility] Last Admin: 01/07/20 09:24 Dose: Not Given Documented by: Quetiapine Fumarate (Seroquel -) 25 mg PO [facility] Last Admin: 01/06/20 22:12 Dose: 25 mg Documented by: Senna/Docusate Sodium (Pericolace -) 2 tablet PO [facility] Last Admin: 01/06/20 22:13 Dose: Not Given Documented by: - Objective Vital Signs: Vital Signs Temperature 98.5 F 01/07/20 08:59 Pulse Rate 60 01/07/20 08:59 Respiratory Rate 18 01/07/20 08:59 Blood Pressure 183/77 H 01/07/20 08:59 O2 Sat by Pulse Oximetry (%) 98 01/06/20 22:00 Constitutional: Yes: No Distress, Calm Eyes: Yes: Conjunctiva Clear HENT: Yes: Atraumatic Cardiovascular: Yes: Regular Rate and Rhythm Respiratory: Yes: Regular, Diminished Gastrointestinal: Yes: Normal Bowel Sounds, Soft Genitourinary: Yes: Incontinence Musculoskeletal: Yes: Muscle Weakness Extremities: Yes: WNL Edema: No Neurological: Yes: Alert, Pre-Existing Deficit Psychiatric: Yes: Alert Labs: CBC, BMP 01/07/20 05:52 01/07/20 05:52 INR, PTT INR 1.17 (0.83-1.09) H 01/01/20 06:30 Microbiology 12/18/19 01:56 Urine - Urine Clean Catch Urine Culture - Final NO GROWTH OBTAINED Problem List - Problems (1) CHF (congestive heart failure) Assessment/Plan: Cardiology on board Tele monitoring Furosemide BID low Na diet BNP >00396 CXR shows bilateral effusions with congestive and infiltrative/atelectatic f indings Code(s): I50.9 - HEART FAILURE, UNSPECIFIED Qualifiers: Heart failure type: unspecified Heart failure chronicity: acute on chronic Qualified Code(s): I50.9 - Heart failure, unspecified (2) HTN (hypertension) Assessment/Plan: Cardiology on board BP labile Continue Nifedipine, Labetolol, Losartan, Hydralazine low Na diet monitor BP Code(s): I10 - ESSENTIAL (PRIMARY) HYPERTENSION (3) JASPER (acute kidney injury) Assessment/Plan: BUN/Cr 24.3/1.3 Renal on board avoid NSAIDs Code(s): N17.9 - ACUTE KIDNEY FAILURE, UNSPECIFIED (4) Dementia Assessment/Plan: Aricept Code(s): F03.90 - UNSPECIFIED DEMENTIA WITHOUT BEHAVIORAL DISTURBANCE Assessment/Plan see problem list Home hospice with [facility]--will be discharged home with Hospice on Wednesday
--- NOTE | 2020-01-07 19:20 | PN ---
Progress Note (short form) - Note Progress Note: 1. JASPER 2. CKD 3. HLD 4. diverticulosis 5. HTN 6. DM 7. proteinuria 8. hypoalbuminemia 9. UTI 10. pleural effusion 11. chf 12. pericardial effusion without tamponade 13. fluid overload Active Medications Acetaminophen (Tylenol -) 1,000 mg PO Q6H PRN PRN Reason: PAIN Last Admin: 01/04/20 22:34 Dose: 1,000 mg Documented by: Al Hydroxide/Mg Hydroxide (Mylanta Oral Suspension -) 30 ml PO Q6H PRN PRN Reason: DYSPEPSIA Atorvastatin Calcium (Lipitor -) 20 mg PO HS [facility] Last Admin: 01/06/20 22:13 Dose: Not Given Documented by: Donepezil HCl (Aricept -) 10 mg PO DAILY [facility] Last Admin: 01/07/20 09:12 Dose: 10 mg Documented by: Furosemide (Lasix -) 40 mg PO BID@0600,1400 [facility] Last Admin: 01/07/20 13:47 Dose: 40 mg Documented by: Heparin Sodium (Porcine) (Heparin -) 5,000 unit SQ BID [facility] Last Admin: 01/07/20 09:13 Dose: 5,000 unit Documented by: Hydralazine HCl (Apresoline -) 75 mg PO TID [facility] Last Admin: 01/07/20 13:47 Dose: 75 mg Documented by: Hydralazine HCl (Apresoline Injection -) 10 mg IVPUSH Q6H PRN PRN Reason: HYPERTENSION Last Admin: 01/07/20 06:39 Dose: 10 mg Documented by: Insulin Aspart (Novolog Vial Sliding Scale -) 1 vial SQ [facility]; Protocol Last Admin: 01/07/20 17:26 Dose: Not Given Documented by: Labetalol HCl (Normodyne -) 300 mg PO TID [facility] Last Admin: 01/07/20 13:51 Dose: Not Given Documented by: Levothyroxine Sodium (Synthroid -) 25 mcg PO DAILY@0700 [facility] Last Admin: 01/07/20 06:39 Dose: Not Given Documented by: Losartan Potassium (Cozaar -) 100 mg PO DAILY [facility] Last Admin: 01/07/20 09:12 Dose: 100 mg Documented by: Memantine (Namenda -) 10 mg PO BID [facility] Last Admin: 01/07/20 09:24 Dose: Not Given Documented by: Mirtazapine (Remeron -) 15 mg PO [facility] Last Admin: 01/06/20 22:12 Dose: 15 mg Documented by: Multivitamins/Minerals/Vitamin C (Tab-A-Vit -) 1 tab PO DAILY [facility] Last Admin: 01/07/20 09:24 Dose: Not Given Documented by: Nifedipine (Procardia Xl -) 90 mg PO DAILY [facility] Last Admin: 01/07/20 09:12 Dose: 90 mg Documented by: Pantoprazole Sodium (Protonix -) 20 mg PO DAILY [facility] Last Admin: 01/07/20 09:24 Dose: Not Given Documented by: Polysaccharide Iron Complex (Niferex-150 -) 150 mg PO DAILY [facility] Last Admin: 01/07/20 09:24 Dose: Not Given Documented by: Quetiapine Fumarate (Seroquel -) 25 mg PO [facility] Last Admin: 01/06/20 22:12 Dose: 25 mg Documented by: Senna/Docusate Sodium (Pericolace -) 2 tablet PO [facility] Last Admin: 01/06/20 22:13 Dose: Not Given Documented by: Last Vital Signs Temp Pulse Resp BP Pulse Ox 98.5 F 61 18 151/50 L 98 01/07/20 18:00 01/07/20 18:00 01/07/20 18:00 01/07/20 18:00 01/07/20 09:00 CBC, BMP 01/07/20 05:52 01/07/20 05:52 IMP- prerenal azotemia ckd s/p fluid overload HTN better Plan- continue curren rx
[2020-01-08] MEDS: INSULIN SLIDING SCALE (NOVOLOG) 1 VIAL SQ SCH ×2 (00:35→06:25)
[2020-01-08] MEDS: hydrALAZINE HCL 25 MG TABLET (FP) PO SCH ×3 (00:41→06:39)
[2020-01-08] MEDS: QUEtiapine FUMARATE 25 MG TABLET PO SCH (00:41)
[2020-01-08] MEDS: LABETALOL HCL 100 MG TABLET (FP) PO SCH ×3 (00:41→06:39)
[2020-01-08] MEDS: HEPARIN NA (PORCINE) 5,000 UNITS/ML 1ML VIAL SQ SCH ×2 (00:41→09:38)
[2020-01-08] MEDS: MEMANTINE HCL 10 MG TABLET (FP) PO SCH ×2 (00:53→09:37)
[2020-01-08] MEDS: ATORVASTATIN CA 20 MG TABLET (FP) PO SCH (00:53)
[2020-01-08] MEDS: SENNOSIDES/DOCUSATE COMBO (SENNA PLUS) TABLET (UD) PO SCH (00:53)
[2020-01-08] MEDS: MIRTAZAPINE 15 MG TABLET (FP) PO SCH (00:54)
[2020-01-08] MEDS: LEVOTHYROXINE NA 25 MCG TABLET (FP) PO SCH (06:21)
[2020-01-08] MEDS: FUROSEMIDE 40 MG TABLET (FP) PO SCH ×2 (06:21→06:39)
--- NOTE | 2020-01-08 07:43 | PN ---
Progress Note (short form) - Note Progress Note: PATIENT IS SCHEDULED FOR DISCHARGE TODAY HOME HOSPICE WITH [facility]. PATIENT REFUSED HER MEDICATIONS AND BP IS ELEVATED, I HAVE ORDERED A CLONIDINE PATCH [id number] AT 0.2MG. I CALLED THE DAUGHTER TABITHA [phone] NO ANSWER AND VOICEMAIL IS FULL. CLEARED FOR HOME HOSPICE DISCHARGE,
[2020-01-08 08:16] VITALS: TEMP 97.8
[2020-01-08] MEDS: hydrALAZINE HCL 20 MG/ML VIAL IVPUSH PRN (08:20)
[2020-01-08] MEDS ORDERED: PT OWN MED DRAWER 7, Y5N ONE (09:33)
[2020-01-08] MEDS: DONEPEZIL HCL 10 MG TABLET (FP) PO SCH (09:37)
[2020-01-08] MEDS: IRON POLYSACCHARIDES 150 MG CAPSULE PO SCH (09:37)
[2020-01-08] MEDS: PANTOPRAZOLE 20 MG TABLET PO SCH (09:37)
[2020-01-08] MEDS: MULTIVITAMINS (DAILY MVI) TABLET (FP) PO SCH (09:37)
[2020-01-08] MEDS: LOSARTAN POTASSIUM 50 MG TABLET PO SCH (09:39)
[2020-01-08] MEDS: NIFEdipine E.R. 90 MG TABLET PO SCH (09:39)
[2020-01-08 09:49] VITALS: BP 165/56; PULSE 64
[2020-01-08] MEDS ORDERED: cloNIDine-TTS 0.2 MG/24 HOURS PATCH.TDWK TD SCH (10:00)
== END 2020-01-08 12:17 | disposition home or self-care (01) | DRG 291 ==
LOC: JER 22:15 → JERBED 12-19 00:26 → JICU 12-19 03:46 → J4S 12-19 13:13 → JICU 12-22 11:36 → J4S 12-27 19:34
PROVIDERS: ADMIT Family Medicine; ATTEND Family Medicine
DX: I13.2 Hypertensive heart and chronic kidney disease with heart failure and with stage 5 chronic kidney disease, or end stage renal disease (principal); I50.33 Acute on chronic diastolic (congestive) heart failure; N18.5 Chronic kidney disease, stage 5; N17.9 Acute kidney failure, unspecified; N39.0 Urinary tract infection, site not specified; I16.1 Hypertensive emergency; I31.3 Pericardial effusion (noninflammatory); I24.8 Other forms of acute ischemic heart disease; E11.22 Type 2 diabetes mellitus with diabetic chronic kidney disease; E03.9 Hypothyroidism, unspecified; E78.5 Hyperlipidemia, unspecified; G20 Parkinson's disease; F02.80 Dementia in other diseases classified elsewhere, unspecified severity, without behavioral disturbance, psychotic disturbance, mood disturbance, and anxiety; K57.90 Diverticulosis of intestine, part unspecified, without perforation or abscess without bleeding; R53.1 Weakness; I16.0 Hypertensive urgency; R62.7 Adult failure to thrive; E11.42 Type 2 diabetes mellitus with diabetic polyneuropathy; D63.1 Anemia in chronic kidney disease; E87.70 Fluid overload, unspecified; E88.09 Other disorders of plasma-protein metabolism, not elsewhere classified; E87.5 Hyperkalemia; Z86.73 Personal history of transient ischemic attack (TIA), and cerebral infarction without residual deficits; Z68.24 Body mass index [BMI] 24.0-24.9, adult
CPT/HCPCS: 36415; 70450-TC; 71045-TC-FY; 80048; 80053; 81003; 82607; 82962; 83690; 83735; 83880; 84100; 84132; 84439; 84443; 84484; 85025; 85027; 85610; 87086; 93005; 93010; 97116-GP; 97162-GP; 99285-25; C9803; J0131; J1644; Q2036; U0003